=== PATIENT | female | born 1955 | race Two or more races ===

== ENCOUNTER 2020-06-01 14:00 | Emergency (ER) | payer MEDICAID, SELFPAY ==
[2020-06-01 14:39] VITALS: BP 132/105; BP 143/66; PULSE 58; PULSE 66; RESP 16; TEMP 36.8; O2SAT 100; O2SAT 95; BMI 30.9
--- NOTE | 2020-06-01 14:49 | ECG_ITS ---
Test Reason : hyperglycemia Blood Pressure : / mmHG Vent. Rate : 051 BPM Atrial Rate : 051 BPM P-R Int : 166 ms QRS Dur : 086 ms QT Int : 468 ms P-R-T Axes : 051 -08 005 degrees QTc Int : 431 ms Sinus bradycardia Moderate voltage criteria for LVH, may be normal variant Borderline ECG When compared with ECG of 13-DEC-2019 07:32, Vent. rate has decreased BY [address] no longer depressed in Anterior leads T wave amplitude has decreased in Anterior leads Referred By: Jessika Ac Electronically Signed By:CRISTIAN REMY MD
--- NOTE | 2020-06-01 14:51 | ED_ITS ---
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 Reports compliance with insulin/home medications. Unknown diabetes medication, per PCT is insulin. Patient also reports acute on chronic bilateral knee arthritic pain, denies trauma or falls. Denies symptoms including polyuria, polydipsia, abdominal pain, nausea/vomiting/diarrhea, fever, chills, cough Onset (ago): day(s) Related Data Allergies Allergy/AdvReac Type Severity Reaction Status Date / Time No Known Allergies Allergy Mild NOT Unverified 02/05/20 15:49 APPLICABLE Review of Systems Review of Systems: Constitutional: No Weight loss, No Fever, No Chills, No Fatigue, No Malaise Cardiovascular: No Chest Pain, No SOB, No Dyspnea on Exertion, No Orthopnea, No Edema Respiratory: No Cough, No Sputum, No Wheezing Gastrointestinal: No Nausea, No Vomiting, No Diarrhea, No Constipation, No Abdominal pain Genitourinary: No irregular bleeding, No Dysuria, No Urinary Frequency, No Hematuria,No Urgency, No Urinary Flow Changes, No Hesitancy Musculoskeletal: +b/l Knee pain, No Myalgias, No Joint Swelling Skin: No Skin Lesions, No rash Neuro: No Weakness, No Numbness, No Headache Endocrine: No Polyuria, No Polydipsia Yes all other systems are reviewed and are negative FORMERLY [facility], [facility]–1983 Past Medical History Attestation statement: The following information was validated with the patient. Social History Social History Smoking Status: Current every day smoker Advance Directives: No Advance Directives Information Provided: Yes Physical Exam Vital Signs: Vital Signs: Last Vital Signs Temp 98.3 F 06/01/20 14:39 Pulse 58 06/01/20 14:39 Resp 16 06/01/20 14:39 BP 143/66 H 06/01/20 14:39 Pulse Ox 95 06/01/20 14:39 Body Mass Index 30.9 Const: General: cooperative and healthy appearing Nutritional Appearance: overweight Limitations: no limitations HENMT: Head: Yes normal to inspection Ears: hearing grossly normal bilaterally General nose exam: Normal external nose present Face and sinus: Yes normal facial exam Eyes: General: appearance normal, both eyes and all related structures EOM: EOMs intact bilaterally Neck: Neck: Yes normal visual inspection Resp: Effort & Inspection: normal respiratory effort Auscultation: clear to auscultation bilaterally, no crackles, no rales, no rhonchi and no wheezes Cardio: Rate: regular rate Heart sounds: S1 normal heart sound present and S2 normal heart sound present GI: Inspection: Yes normal to inspection Palpation (GI): Soft to palpation, nontender, no guarding and not rigid Skin: Rashes: no rashes Wounds: no wounds Extrem: Other: no LE edema General: Yes normal to inspection Course Course Course Narrative: * POC greater than 600 * 1800--labs still pending. ED care transferred to [facility] Regan pending labs, correction of glucose/re-evaluation and dispo per results Medical Decision Making MDM Narrative Medical decision making narrative: 65-year-old female with a past medical history COPD, arthritis, diabetes, bipolar, gastroenteritis, HTN, former IVDA abuser on Suboxone, BIBA for elevated FS at home x 1-2 days per patient's PCT. On exam VSS, NAD/well appearing, abdomen soft/nontender. Concern for DKA vs HHS vs metabolic abnormalities. Rule out infectious etiology. Plan: EKG, labs, UA, IVF, reassess Lab Data Result diagrams: 06/01/20 17:12 06/01/20 18:04 Labs: Lab Results 06/01/20 06/01/20 06/01/20 Range/Units 15:13 15:15 16:59 WBC (4.8-10.8) X10*3/uL RBC (4.20-5.50) X10*6/uL Hgb (12.0-16.0) g/dl Hct (37-47) % MCV (80-98) fL MCH (27.0-33.0) pg MCHC (31.0-35.0) g/dl RDW (11.0-16.0) % Plt Count (160-400) X10*3/uL MPV (9.4-12.3) fL Immature Gran % (Auto) (0.0-0.4) % Neut % (Auto) (45-73) % Lymph % (Auto) (20-40) % [place] % (Auto) (2-11) % Eos % (Auto) (0-4) % Baso % (Auto) (0-2) % Lymph # (Auto) (1.2-4.9) X10*3/uL [place] # (Auto) (0.1-1.2) X10*3/uL Eos # (Auto) (0.0-0.4) X10*3/uL Baso # (Auto) (0.0-0.2) X10*3/uL Abs Immat Gran (auto) (0.00-0.03) X10*3/uL Absolute Neuts (auto) (2.0-8.3) X10*3/uL Absolute Nucleated RBC (0.0-0.012) X10*3/uL Nucleated RBC % (auto) (0.0-0.2) /100WBC Hold Blue Top VBG pH (7.32-7.43) VBG pCO2 mmhg VBG pO2 mmhg VBG HCO3 mmol/L VBG O2 Saturation % VBG Base Excess mmol/L Sodium Potassium Chloride Carbon Dioxide Anion Gap BUN Creatinine Estim Creat Clear Calc Estimated GFR POC Glucose > 600 H* > 600 H* (60-115) mg/dL Random Glucose Calcium Magnesium Total Bilirubin Direct Bilirubin AST ALT Alkaline Phosphatase Total Protein Albumin Lipase Urine Color YELLOW Urine Appearance CLEAR Urine pH 6.5 (5.0-8.0) Ur Specific [place] 1.015 (1.005-1.025) Urine Protein 2+ H (NEG-TRACE) MG/DL Urine Glucose (UA) >=1000 H (NEG) MG/DL Urine Ketones NEG (NEG) MG/DL Urine Blood TRACE (NEG) Urine Nitrite NEG (NEG) Ur Leukocyte Esterase NEG (NEG) Urine RBC 1-4 (0) /HPF Urine WBC 0 (0-4) /HPF Ur Squamous Epith Cells TRACE /LPF Urine Bacteria NONE /LPF Acetone, Qual 06/01/20 06/01/20 06/01/20 Range/Units 17:12 17:12 17:12 WBC 9.9 (4.8-10.8) X10*3/uL RBC 4.79 (4.20-5.50) X10*6/uL Hgb 13.9 (12.0-16.0) g/dl Hct 41.8 (37-47) % MCV 87.3 (80-98) fL MCH 29.0 (27.0-33.0) pg MCHC 33.3 (31.0-35.0) g/dl RDW 13.3 (11.0-16.0) % Plt Count 304 (160-400) X10*3/uL MPV 10.9 (9.4-12.3) fL Immature Gran % (Auto) 0.3 (0.0-0.4) % Neut % (Auto) 70.5 (45-73) % Lymph % (Auto) 21.2 (20-40) % [place] % (Auto) 5.2 (2-11) % Eos % (Auto) 2.5 (0-4) % Baso % (Auto) 0.3 (0-2) % Lymph # (Auto) 2.1 (1.2-4.9) X10*3/uL [place] # (Auto) 0.5 (0.1-1.2) X10*3/uL Eos # (Auto) 0.3 (0.0-0.4) X10*3/uL Baso # (Auto) 0.0 (0.0-0.2) X10*3/uL Abs Immat Gran (auto) 0.03 (0.00-0.03) X10*3/uL Absolute Neuts (auto) 7.0 (2.0-8.3) X10*3/uL Absolute Nucleated RBC 0.000 (0.0-0.012) X10*3/uL Nucleated RBC % (auto) 0.0 (0.0-0.2) /100WBC Hold Blue Top Cancelled VBG pH (7.32-7.43) VBG pCO2 mmhg VBG pO2 mmhg VBG HCO3 mmol/L VBG O2 Saturation % VBG Base Excess mmol/L Sodium Cancelled Potassium Cancelled Chloride Cancelled Carbon Dioxide Cancelled Anion Gap Cancelled BUN Cancelled Creatinine Cancelled Estim Creat Clear Calc Cancelled Estimated GFR Cancelled POC Glucose (60-115) mg/dL Random Glucose Cancelled Calcium Cancelled Magnesium Cancelled Total Bilirubin Cancelled Direct Bilirubin Cancelled AST Cancelled ALT Cancelled Alkaline Phosphatase Cancelled Total Protein Cancelled Albumin Cancelled Lipase Cancelled Urine Color Urine Appearance Urine pH (5.0-8.0) Ur Specific [place] (1.005-1.025) Urine Protein (NEG-TRACE) MG/DL Urine Glucose (UA) (NEG) MG/DL Urine Ketones (NEG) MG/DL Urine Blood (NEG) Urine Nitrite (NEG) Ur Leukocyte Esterase (NEG) Urine RBC (0) /HPF Urine WBC (0-4) /HPF Ur Squamous Epith Cells /LPF Urine Bacteria /LPF Acetone, Qual Cancelled 06/01/20 06/01/20 Range/Units 17:13 18:03 WBC (4.8-10.8) X10*3/uL RBC (4.20-5.50) X10*6/uL Hgb (12.0-16.0) g/dl Hct (37-47) % MCV (80-98) fL MCH (27.0-33.0) pg MCHC (31.0-35.0) g/dl RDW (11.0-16.0) % Plt Count (160-400) X10*3/uL MPV (9.4-12.3) fL Immature Gran % (Auto) (0.0-0.4) % Neut % (Auto) (45-73) % Lymph % (Auto) (20-40) % [place] % (Auto) (2-11) % Eos % (Auto) (0-4) % Baso % (Auto) (0-2) % Lymph # (Auto) (1.2-4.9) X10*3/uL [place] # (Auto) (0.1-1.2) X10*3/uL Eos # (Auto) (0.0-0.4) X10*3/uL Baso # (Auto) (0.0-0.2) X10*3/uL Abs Immat Gran (auto) (0.00-0.03) X10*3/uL Absolute Neuts (auto) (2.0-8.3) X10*3/uL Absolute Nucleated RBC (0.0-0.012) X10*3/uL Nucleated RBC % (auto) (0.0-0.2) /100WBC Hold Blue Top SEE NOTE VBG pH 7.34 (7.32-7.43) VBG pCO2 62 mmhg VBG pO2 31 mmhg VBG HCO3 33 mmol/L VBG O2 Saturation 57.9 % VBG Base Excess 4.7 mmol/L Sodium Potassium Chloride Carbon Dioxide Anion Gap BUN Creatinine Estim Creat Clear Calc Estimated GFR POC Glucose (60-115) mg/dL Random Glucose Calcium Magnesium Total Bilirubin Direct Bilirubin AST ALT Alkaline Phosphatase Total Protein Albumin Lipase Urine Color Urine Appearance Urine pH (5.0-8.0) Ur Specific [place] (1.005-1.025) Urine Protein (NEG-TRACE) MG/DL Urine Glucose (UA) (NEG) MG/DL Urine Ketones (NEG) MG/DL Urine Blood (NEG) Urine Nitrite (NEG) Ur Leukocyte Esterase (NEG) Urine RBC (0) /HPF Urine WBC (0-4) /HPF Ur Squamous Epith Cells /LPF Urine Bacteria /LPF Acetone, Qual Discharge Plan Discharge Clinical Impression: Hyperglycemia
[2020-06-01] MEDS: 0.9 % Sodium Chloride 1,000 ML 999 ML IVCONT ×2 (15:16→18:26)
--- NOTE | 2020-06-01 15:16 | PC.NURSE ---
poc read hi. iv fluids started. made aware
[2020-06-01 15:22] LABS: Glucose, Whole Blood > 600 mg/dL (60-115)
[2020-06-01 15:22] LABS: Glucose, Whole Blood > 600 mg/dL (60-115)
[2020-06-01 17:25] LABS: MANUAL DIFF FLAG NO
[2020-06-01 17:32] LABS: Basophils Percent Auto 0.3 % (0-2); Eosinophils Absolute Auto 0.3 X10*3/uL (0.0-0.4); Eosinophils Percent Auto 2.5 % (0-4); Hematocrit 41.8 % (37-47); Hemoglobin 13.9 g/dl (12.0-16.0); Imm Gran Abs Auto 0.03 X10*3/uL (0.00-0.03); Imm Gran Pct Auto 0.3 % (0.0-0.4); Lymphocytes Absolute Auto 2.1 X10*3/uL (1.2-4.9); Lymphocytes Percent Auto 21.2 % (20-40); Mean Corpuscular HGB Conc 33.3 g/dl (31.0-35.0); Mean Corpuscular Volume 87.3 fL (80-98); Mean Platelet Volume 10.9 fL (9.4-12.3); Monocytes Absolute Auto 0.5 X10*3/uL (0.1-1.2); Monocytes Percent Auto 5.2 % (2-11); Neutrophils Percent Auto 70.5 % (45-73); Platelet Count 304 X10*3/uL (160-400); Red Blood Count 4.79 X10*6/uL (4.20-5.50); Red Cell Distribution Width 13.3 % (11.0-16.0); White Blood Count 9.9 X10*3/uL (4.8-10.8)
[2020-06-01 17:33] LABS: Glucose Urine UA >=1000 MG/DL (NEG); Leukocyte Esterase Urine NEG (NEG); Nitrite Urine NEG (NEG); PH 6.5 (5.0-8.0); Specific Gravity - Urine 1.015 (1.005-1.025); Urine Blood TRACE (NEG); Urine Ketones NEG (NEG); Urine Protein 2+ MG/DL (NEG-TRACE)
[2020-06-01 17:35] LABS: Appearance Urine CLEAR; Color Urine YELLOW
--- NOTE | 2020-06-01 17:45 | PC.NURSE ---
patient taking own suboxone. Jessika provider aware.
[2020-06-01 17:47] LABS: WBC Urine 0 /HPF (0-4)
[2020-06-01 17:48] LABS: Squamous Epithelial Cell Urine TRACE /LPF
[2020-06-01 17:49] LABS: Base Excess VBG 4.7 mmol/L; HCO3 VBG 33 mmol/L; PCO2 VBG 62 mmhg; PO2 VBG 31 mmhg; pH VBG 7.34 (7.32-7.43)
[2020-06-01 17:50] LABS: Oxygen Saturation VBG 57.9 %
[2020-06-01 18:30] VITALS: BP 190/78; PULSE 59; RESP 16; O2SAT 98
[2020-06-01 18:30] LABS: Acetone, serum QL Negative (Negative)
[2020-06-01 18:44] LABS: Alanine Aminotransferase 17 U/L (0-31); Albumin Level 3.1 g/dL (3.5-5.0); Alkaline Phosphatase 187 U/L (39-117); Anion Gap 14 (12-20); Aspartate Amino Transferase 15 U/L (5-31); Bilirubin Direct < 0.2 mg/dL (0.0-0.5); Bilirubin Total 0.2 mg/dL (0.0-1.0); Blood Urea Nitrogen 18 mg/dL (9-16); Calcium 8.1 mg/dL (8.4-10.2); Carbon Dioxide 28 mmol/L (22-29); Chloride 95 mmol/L (96-108); Creatinine Clr Calc Pharmacy 37.7; Estimated Glomerular Filt Rate 38; Glucose Random 585 mg/dL (60-115); Lipase 41 U/L (8-78); Potassium 4.4 mmol/l (3.3-5.1); Sodium 133 mmol/L (135-145)
[2020-06-01 18:47] LABS: Glucose, Whole Blood 383 mg/dL (60-115)
== END 2020-06-01 21:27 | disposition home or self-care (01) ==
PROVIDERS: Physician Assistant; Emergency Provider Emergency Medicine Emergency Medical Services; PCP Internal Medicine
DX: E11.65 Type 2 diabetes mellitus with hyperglycemia (principal); F11.10 Opioid abuse, uncomplicated; J44.9 Chronic obstructive pulmonary disease, unspecified; I10 Essential (primary) hypertension; Z79.899 Other long term (current) drug therapy; Z79.4 Long term (current) use of insulin; F17.200 Nicotine dependence, unspecified, uncomplicated; Z71.6 Tobacco abuse counseling
CPT/HCPCS: 36415; 80048; 80076; 81001; 82009; 82803; 82947; 83690; 83735; 85025; 93005; 96360; 96361; 99284

== ENCOUNTER 2020-10-21 17:56 | Inpatient (IN) | payer MEDICAID, SELFPAY ==
--- NOTE | ~2020-10-21 | CT_ITS ---
PROCEDURE: CT-GUIDED BIOPSY, RIGHT KIDNEY CLINICAL INFORMATION: Renal failure. COMPARISON: None TECHNIQUE: Following explaining CT-guided renal biopsy procedure, benefits and risk via ship keeper, a written consent was obtained. Patient was placed prone and preliminary CT imaging was obtained through the area of kidneys. A right-sided biopsy was selected and optimal site was selected along the right posterior lateral skin. The marked skin area was cleaned and draped in usual sterile manner. 1% lidocaine was injected at puncture site. A 20-gauge guide needle was inserted from the skin incision to the lower pole of right kidney under fluoroscopy, coaxially the biopsy gun was administered and a 3-pass core biopsy was performed. Postprocedure repeat CT imaging was obtained. Conscious sedation was administered and patient monitored for 22 minutes by IR radiologist and nursing. This CT examination was performed using dose optimization techniques as appropriate, variously including the following: *Automated exposure control *Adjustment of mA and/or kV according to patient size (this includes techniques or standardized protocols for targeted exams where dose is matched to indication/reason for exam; i.e. extremities or head) *Use of iterative reconstruction technique DLP: 430 mGy-cm FINDINGS: On preliminary CT imaging through the abdomen and posterior kidneys revealed both kidneys to be symmetrical in size, density and contour. No radiopaque calculi seen. There is no hydronephrosis. Successful CT fluoroscopy-guided lower pole right renal core biopsy performed x 3. Postprocedure repeat CT imaging revealed no perinephric hematoma or soft tissue mass. CT/CT biopsy renal LT IMPRESSION: Successful CT fluoroscopy-guided right renal lower pole core biopsy performed without immediate complications.
--- NOTE | ~2020-10-21 | US_ITS ---
EXAMINATION: US RENAL DOPPLER CLINICAL INFORMATION: Hypertension. COMPARISON: Previous CT scans of the abdomen and pelvis, most recent March 2016, CTA of the abdomen and pelvis May 2011 and previous renal ultrasounds, most recent September 2015 TECHNIQUE: Doppler color and edmondson-scale evaluation of the kidneys, renal arteries and renal veins. Exam is significantly limited. FINDINGS: Right kidney: The right kidney is difficult to visualize. The right kidney measures 10.8 x 4.5 x 6 cm in sagittal, AP and transverse dimension. Renal cortical echotexture appears increased and may be thinned. No renal stone, mass or hydronephrosis is seen. Left kidney: The left kidney is difficult to visualize. The left kidney measures 11.2 x 3.8 x 4 cm in sagittal, AP and transverse dimension. Renal cortical echotexture appears increased and may be thinned. There is a 4.8 x 4.5 x 4.8 cm cyst in the upper pole. No renal stone, mass or hydronephrosis is seen. The visualized abdominal aorta is normal in caliber and demonstrates normal peak systolic velocity of 75 cm/s. The right renal artery is difficult to visualize. The right renal artery aneurysm appreciated by CTA is not visualized by ultrasound. Right renal artery peak systolic velocities measure 114 cm/s, 43 cm/s and 51 cm/s proximally, in the midportion and distally. Right renal artery to aorta ratio measures 1.4. This does not suggest renal artery stenosis. Resistive indices in the right kidney could not be obtained. The right renal vein is patent. Two left renal arteries are seen on CTA. Only 1 renal artery is seen by ultrasound and is difficult to visualize. The left proximal and mid renal artery is not visualized. The left distal renal artery peak systolic velocity measures 43 cm/s. Left renal artery to aorta ratio is 0.5. Resistive indices in the left kidney could not be obtained. The left renal vein is patent. US/US renal doppler IMPRESSION: Very limited exam. There is bilateral increased renal cortical echogenicity and question renal cortical thinning. 4.5 x 4.8 cm left renal cyst. Markedly limited renal Doppler exam, nondiagnostic. 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 Additional imaging for workup of possible renal artery stenosis should be considered.
--- NOTE | ~2020-10-21 | XR_ITS ---
EXAMINATION: XR CHEST CLINICAL INFORMATION: Shortness of breath COMPARISON: 01/11/2018 TECHNIQUE: Frontal view of the chest was obtained. FINDINGS: Compared to the prior study there's been significant improvement with resolution of what had probably been CHF versus bronchopneumonia. The heart size is normal. At this time there is no evidence of CHF. No infiltrates or pleural effusions or lung masses are seen. XR/XR chest 1V IMPRESSION: No acute intrathoracic disease
[2020-10-21 18:06] VITALS: BP 180/80; PULSE 76; O2SAT 100
[2020-10-21 18:59] VITALS: BP 156/68; PULSE 69; RESP 18; TEMP 36.8; O2SAT 97; BMI 41.5
[2020-10-21 20:51] LABS: MANUAL DIFF FLAG NO
[2020-10-21 20:52] LABS: Basophils Percent Auto 0.3 % (0-2); Eosinophils Absolute Auto 0.5 X10*3/uL (0.0-0.4); Eosinophils Percent Auto 4.1 % (0-4); Hematocrit 36.7 % (37-47); Hemoglobin 11.8 g/dl (12.0-16.0); Imm Gran Abs Auto 0.04 X10*3/uL (0.00-0.03); Imm Gran Pct Auto 0.4 % (0.0-0.4); Lymphocytes Percent Auto 18.1 % (20-40); Mean Corpuscular HGB Conc 32.2 g/dl (31.0-35.0); Mean Corpuscular Hemoglobin 29.1 pg (27.0-33.0); Mean Corpuscular Volume 90.4 fL (80-98); Mean Platelet Volume 9.7 fL (9.4-12.3); Monocytes Absolute Auto 0.9 X10*3/uL (0.1-1.2); Monocytes Percent Auto 7.6 % (2-11); Neutrophils Absolute Auto 7.7 X10*3/uL (2.0-8.3); Neutrophils Percent Auto 69.5 % (45-73); Platelet Count 282 X10*3/uL (160-400); Red Blood Count 4.06 X10*6/uL (4.20-5.50); Red Cell Distribution Width 14.2 % (11.0-16.0); White Blood Count 11.1 X10*3/uL (4.8-10.8)
[2020-10-21 21:03] LABS: INTERNATIONAL NORM RATIO 0.9 (0.9-1.1); Prothrombin Time 10.5 SEC (10.8-13.0)
[2020-10-21 21:06] LABS: D Dimer 506 NG/ML
[2020-10-21 21:12] LABS: Anion Gap 18 (12-20); Blood Urea Nitrogen 27 mg/dL (9-16); Calcium 8.6 mg/dL (8.4-10.2); Carbon Dioxide 24 mmol/L (22-29); Chloride 104 mmol/L (96-108); Creatinine Clr Calc Pharmacy 23.1; Estimated Glomerular Filt Rate 18; Glucose Random 141 mg/dL (60-115); Potassium 4.4 mmol/L (3.3-5.1); Sodium 142 mmol/L (135-145)
[2020-10-21 21:18] LABS: B Type Natriuretic Peptide 294 pg/mL (<100)
--- NOTE | 2020-10-21 22:08 | ED_ITS ---
HPI - Extremity Injury (Lower) General Chief Complaint: Extremity Injury, Lower Stated Complaint: left leg pain Time Seen by Provider: 10/21/20 22:08 Source: patient Mode of arrival: ambulatory Limitations: no limitations History of Present Illness HPI Narrative: Patient's history of substance abuse heroin and cocaine, congestive heart failure, COPD, diabetes, hypertension, anxiety and depression, asthma comes here with increased swelling of the leg with overall bloatedness. Patient denies any chest pain feels a little short of breath when ambulate. Patient has not taken any drugs for last 3 days and is not taking any diuretics Related Data Allergies Allergy/AdvReac Type Severity Reaction Status Date / Time No Known Allergies Allergy Mild NOT Verified 10/21/20 18:58 APPLICABLE Review of Systems Review of Systems: Constitutional : No Weight loss, No Fever, No Chills ENT/Mouth : No sore throat, No Rhinorrhea Eyes: No Eye Pain, No Swelling Cardiovascular : No Chest Pain, no palpitations Respiratory : No Cough, No Sputum, no shortness of breath Gastrointestinal : no Nausea, No Vomiting, No Diarrhea, No abdominal Pain, no black stools Genitourinary : No Dysuria, No Urinary Frequency Musculoskeletal : No joint pain, No Myalgias, No Joint Swelling Skin : No Skin Lesions, No rash Neuro : No Weakness, No Numbness, No Dizziness, No Headache Psych : No Anxiety/Panic, No Depression Heme/Lymph: No Bruising, No Lymphadenopathy Endocrine : No Polyuria, No Polydipsia All other systems reviewed and are negative [facility] Past Medical History Medical History (Updated 10/22/20 @ 00:08 by Damien Ariza MD) Diabetes mellitus Hypertension Social History Social History Advance Directives: No Physical Exam Vital Signs: Vital Signs: Last Vital Signs Temp 98.2 F 10/21/20 18:59 Pulse 69 10/21/20 18:59 Resp 18 10/21/20 18:59 BP 156/68 H 10/21/20 18:59 Pulse Ox 97 10/21/20 18:59 Body Mass Index 41.5 Appearance: Alert. Oriented X3. No acute distress. Eyes: PERRLA, No Nystagmus ENT: Pharynx normal. Oral Mucosa moist Neck: Normal inspection. Neck supple. CVS: Normal heart rate and rhythm. Pulses normal. Respiratory: No respiratory distress. Equal air entry bilateral, no wheezing/rales/rhonchi Abdomen: Soft and nontender. Bowel sounds are present, no mass palpable, no CVA tenderness Skin: Skin warm and dry. Normal skin color. Normal skin turgor. Extremities:3+ b/l lower extremity edema. No calf tenderness Neuro: Oriented X 3. No motor deficit. No sensory deficit.No cerebellar signs , cranial nerves II-XII intact MDM - Extremity Injury (Lower) MDM Narrative Medical decision making narrative: Patient has generalized anasarca with worsening of renal functions previous creatinine was 1.2 today is 2.6 noncompli ant to her medications fluid overloaded at this time will give her dad Lasix 40 mg lungs are clear admit patient for [facility] Medical Records Attestation: I reviewed the patient's medical records. Lab Data Attestation: I reviewed the patient's lab results. Result diagrams: 10/21/20 20:46 10/21/20 20:46 Labs: Lab Results 10/21/20 10/21/20 10/21/20 Range/Units 20:46 20:46 20:46 WBC 11.1 H (4.8-10.8) X10*3/uL RBC 4.06 L (4.20-5.50) X10*6/uL Hgb 11.8 L (12.0-16.0) g/dl Hct 36.7 L (37-47) % MCV 90.4 (80-98) fL MCH 29.1 (27.0-33.0) pg MCHC 32.2 (31.0-35.0) g/dl RDW 14.2 (11.0-16.0) % Plt Count 282 (160-400) X10*3/uL MPV 9.7 (9.4-12.3) fL Immature Gran % (Auto) 0.4 (0.0-0.4) % Neut % (Auto) 69.5 (45-73) % Lymph % (Auto) 18.1 L (20-40) % [place] % (Auto) 7.6 (2-11) % Eos % (Auto) 4.1 H (0-4) % Baso % (Auto) 0.3 (0-2) % Lymph # (Auto) 2.0 (1.2-4.9) X10*3/uL [place] # (Auto) 0.9 (0.1-1.2) X10*3/uL Eos # (Auto) 0.5 H (0.0-0.4) X10*3/uL Baso # (Auto) 0.0 (0.0-0.2) X10*3/uL Abs Immat Gran (auto) 0.04 H (0.00-0.03) X10*3/uL Absolute Neuts (auto) 7.7 (2.0-8.3) X10*3/uL Absolute Nucleated RBC 0.000 (0.0-0.012) X10*3/uL Nucleated RBC % (auto) 0.0 (0.0-0.2) /100WBC PT (10.8-13.0) SEC INR (0.9-1.1) D-Dimer 506 NG/ML Sodium 142 (135-145) mmol/L Potassium 4.4 (3.3-5.1) mmol/L Chloride 104 (96-108) mmol/L Carbon Dioxide 24 (22-29) mmol/L Anion Gap 18 (12-20) BUN 27 H (9-16) mg/dL Creatinine 2.66 H (0.5-1.4) mg/dL Estim Creat Clear Calc 23.1 Estimated GFR 18 Random Glucose 141 H D (60-115) mg/dL Calcium 8.6 D (8.4-10.2) mg/dL B-Natriuretic Peptide (<100) pg/mL 10/21/20 10/21/20 Range/Units 20:46 20:46 WBC (4.8-10.8) X10*3/uL RBC (4.20-5.50) X10*6/uL Hgb (12.0-16.0) g/dl Hct (37-47) % MCV (80-98) fL MCH (27.0-33.0) pg MCHC (31.0-35.0) g/dl RDW (11.0-16.0) % Plt Count (160-400) X10*3/uL MPV (9.4-12.3) fL Immature Gran % (Auto) (0.0-0.4) % Neut % (Auto) (45-73) % Lymph % (Auto) (20-40) % [place] % (Auto) (2-11) % Eos % (Auto) (0-4) % Baso % (Auto) (0-2) % Lymph # (Auto) (1.2-4.9) X10*3/uL [place] # (Auto) (0.1-1.2) X10*3/uL Eos # (Auto) (0.0-0.4) X10*3/uL Baso # (Auto) (0.0-0.2) X10*3/uL Abs Immat Gran (auto) (0.00-0.03) X10*3/uL Absolute Neuts (auto) (2.0-8.3) X10*3/uL Absolute Nucleated RBC (0.0-0.012) X10*3/uL Nucleated RBC % (auto) (0.0-0.2) /100WBC PT 10.5 L (10.8-13.0) SEC INR 0.9 (0.9-1.1) D-Dimer NG/ML Sodium (135-145) mmol/L Potassium (3.3-5.1) mmol/L Chloride (96-108) mmol/L Carbon Dioxide (22-29) mmol/L Anion Gap (12-20) BUN (9-16) mg/dL Creatinine (0.5-1.4) mg/dL Estim Creat Clear Calc Estimated GFR Random Glucose (60-115) mg/dL Calcium (8.4-10.2) mg/dL B-Natriuretic Peptide 294 H (<100) pg/mL ECG Data Attestation: I personally reviewed and interpreted this ECG as follows: Interpretation: Normal sinus rhythm heart rate 72 beats per minute LVH no acute ST T wave changes no acute ischemia Discharge Plan Discharge Clinical Impression: Acute renal failure Qualifiers: Acute renal failure type: unspecified Qualified Code(s): N17.9 - Acute kidney failure, unspecified Diastolic congestive heart failure Qualifiers: Heart failure chronicity: acute on chronic Qualified Code(s): I50.33 - Acute on chronic diastolic (congestive) heart failure Patient Disposition: Admitted As Inpatient
--- NOTE | 2020-10-21 22:18 | ECG_ITS ---
Test Reason : KIDNEY PROBLEMS Blood Pressure : / mmHG Vent. Rate : 079 BPM Atrial Rate : 079 BPM P-R Int : 156 ms QRS Dur : 094 ms QT Int : 388 ms P-R-T Axes : 048 -18 038 degrees QTc Int : 444 ms Normal sinus rhythm Possible Left atrial enlargement Left ventricular hypertrophy Abnormal ECG When compared with ECG of 01-JUN-2020 17:32, Vent. rate has increased BY 28 BPM Referred By: Damien Ariza Electronically Signed By:Charan Hankins
[2020-10-21] MEDS: Furosemide 40 MG/4 ML VIAL IVPUSH (23:06)
[2020-10-22] VITALS (17 sets, daily range): BP systolic 167–209; BP diastolic 73–113; PULSE 76–122; RESP 15–20; TEMP 36.2–36.6; O2SAT 89–100; BMI 36.8
[2020-10-22 00:39] LABS: COVID-19 Test Negative (Negative); IDNOW Serial# 9DD0AD1C
--- NOTE | 2020-10-22 01:29 | PC.NURSE ---
Patient has voided 5 times, ambulating with cane to bathroom and back since being medicated with Furosemide 40mg. Pt reports my legs are numb and tingling . to bedside for evaluation.
--- NOTE | 2020-10-22 03:02 | CA_ITS ---
Transthoracic Echocardiogram Limited Patient (Last, First, Middle): Cruz Muller Maria Gender: Female Date of : 1955 Age: 65 Procedure Date: 10/22/2020 Procedure Type: Transthoracic Echocardiogram Limited Location: S3E Height: 154.94 cm Weight: 88. kg BSA: 1.86 m2 Heart Rate: bpm BP: 209 / 96 mmHg Engine Lathe Set Up Operator Tool: Referring MD: Robert Torres MD Symptoms: chf Study Quality: Good ECG Rhythm: Sinus Conclusions: - Normal left ventricular size and systolic function. The visually estimated ejection fraction is between 65-70%. - E/E prime ratio is between 8 and 15 consistent with indeterminate filling pressures. - Normal right ventricular cavity size and systolic function. - Limited study because the patient was noncooperative. Findings Left Ventricle Normal left ventricular size and systolic function. The visually estimated ejection fraction is between 65-70%. There is no evidence of regional wall motion abnormalities. Abnormal diastolic function is noted. Spectral Doppler is indicative of an impaired relaxation filling pattern. E/E prime ratio is between 8 and 15 consistent with indeterminate filling pressures. Right Ventricle Normal right ventricular cavity size and systolic function. Mitral Valve There is severe mitral annular calcification. Great Vessels All visible segments of the aorta are normal in size. Pericardium/Pleural There is no evidence of pericardial effusion. Prior Study Comparison No significant change compared to prior study. Measurements 2D Linear Measurements Ao Root: 2.60 2.1-3.5 cm LVOT Diam: 2.00 3.0+(-)1.3 cm Mitral Valve MV Pk E: 0.71 MV PK A: 1.34 MV Decel Time: 138.00 E/A: 0.50 E'Lateral: 7.72 E'Medial: 5.77 E/E' Med: 12.30 E/E' Lat: 9.20 PHT: 40.00 MVA PHT: 5.50 Decel Mckean: 5.12 LVOT LVOT Diam: 2.00 LVOT Area: 3.14 Diastolic Function MV Pk E: 0.71 MV Pk A: 1.34 E/A: 0.50 E'Medial: 5.77 E/E' Med: 12.30 E' Laterial: 7.72 E/E' Lat: 9.20 Tricuspid Valve TR Pk Diego: 1.56 TR Pk Grad: 10.00 RA Press: 3.00 RVSP: 13.00 Great Vessels Aorta Ao Root-2D: 2.60 2.0-3.7 cm Updated in Other Vendor System with Status of Final Charan Hankins MD electronically signed on 10/22/2020 9:01:45 PM with status of Final
[2020-10-22 04:12] LABS: Troponin-I High Sensitivity 30.9 ng/L (<3.5-17.0)
[2020-10-22] MEDS: Heparin Sodium,Porcine 5,000 UNIT/ML VIAL 5000 UNIT SUBCUT ×2 (05:05→17:25)
--- NOTE | 2020-10-22 05:30 | PM.IMHP ---
History of Present Illness Date of Service: 10/22/20 Chief Complaint: leg swelling This is a 65-year-old female with past medical history of IV drug use, diabetes, hypertension leg swelling as well as elevated blood pressure. Patient reports that she noticed the leg swelling for the past 3 days, she has been having no dyspnea, orthopnea or PND, she is also experiencing elevated blood pressure in the 200s, she is constipated, denies any abdominal pain nausea or vomiting, no urinary symptoms, no fever but has chills, no headache or change in vision, with with chest pain or palpitations. Other patient denies dyspnea, she has been noted to be dyspneic on ambulation from bed to commode and bathroom On arrival to the ED patient hemodynamically stable with a blood pressure of 156/68, but worsened to , denies any headache or chest pain On arrival to the ED hemodynamically stable with a WBC count 11.1, hemoglobin of 11.8, sodium of 142, potassium 4.4, BUN of 27, creatinine of 2.66 with a baseline around 1.4, sodium of 141, BNP of 294, and high sensitivity troponin of 30.9 with no chest pain EKG shows normal sinus rhythm Chest x-ray shows no acute intrathoracic disease Review of Systems Review of Systems: Yes all other systems are reviewed and are negative [facility] Medical History Diabetes mellitus Hypertension Social History Household Members: None Housing: Apartment Do you presently have visiting nurse or other home services: Yes Patient Tobacco Use Status: Current everyday Tobacco user Tobacco use type: Cigarette Cigarette Packs Per Day: 1 Cigarettes Per Day: 20.0 Smoked in Last 30 Days: Yes Patient Interested in Nicotine Replacement: Yes Patient Given Instructions on How to Stop Smoking: No Second Hand Smoke Exposure: No Use of substances other than those prescribed or required for medical reasons: Yes Substance Use Type: Heroin Substance Use Frequency: Occasionally Last Used Substance: Days (ago) Currently Displaying Signs/Symptoms of Drug Intoxication Withdrawal: No Any prior treatment program specific to substance use: Yes Have you been hit, kicked, punched, or otherwise hurt by someone within the past year? If so, by whom?: No Do you feel safe in your current relationship?: No Current Relationship Is there a partner from a previous relationship who is making you feel unsafe now?: No Are you made to feel afraid or neglected: No Advance Directives: No Advance Directives Information Provided: No (declined) Do you have thoughts of harming others: None Do you have a plan to hurt others: No Plan Recently lost weight without trying: No Nutrition Risks: No Nutritional Risk Patient : No : No Poor oral hygiene: No Meds Allergies Allergy/AdvReac Type Severity Reaction Status Date / Time No Known Allergies Allergy Mild NOT Verified 10/21/20 18:58 APPLICABLE Active Medications: Current Medications Generic Name Dose Route Start Last Admin Trade Name Freq PRN Reason Stop Dose Admin Acetaminophen 650 mg 10/22/20 03:02 Acetaminophen 325 Mg Tablet PO Q6H PRN Pain, Mild (Pain Scale 1-3) Docusate Sodium 100 mg 10/22/20 03:02 Docusate Sodium 100 Mg Capsule PO DAILY PRN Constipation Furosemide 40 mg 10/22/20 09:00 Furosemide 40 Mg/4 Ml Vial IVPUSH DAILY PHAN Protocol Heparin Sodium (Porcine) 5,000 unit 10/22/20 04:00 10/22/20 05:05 Heparin Sodium,Porcine 5,000 Unit/Ml Vial SUBCUT 5,000 unit Q12H PHAN Administration Hydralazine HCl 5 mg 10/22/20 04:56 Hydralazine Hcl 20 Mg/Ml Vial IVPUSH Q6H PRN SBP >180 Protocol Ondansetron HCl 4 mg 10/22/20 03:02 Ondansetron Hcl 4 Mg/2 Ml Vial IVPUSH Q8H PRN Nausea and Vomiting Physical Exam Vital Signs and Narrative: Vital Signs: Last Vital Signs Temp 97.1 F 10/22/20 04:00 Pulse 78 10/22/20 04:00 Resp 17 10/22/20 04:00 BP 209/96 H 10/22/20 04:00 Pulse Ox 96 10/22/20 04:00 Body Mass Index 41.5 Const: General: cooperative and no acute distress Orientation/consciousness: patient oriented x3 Eyes: General: appearance normal, both eyes and all related structures Resp: Effort & Inspection: normal respiratory effort and able to speak in complete sentences Cardio: Rate: regular rate Rhythm: regular rhythm GI: Palpation (GI): Soft to palpation Auscultation: normal bowel sounds Skin: General skin exam: no rashes or lesions noted Neuro: General: patient oriented x3 Cognition (Neuro): normal cognition Extrem: Other: 2+ pitting edema bilaterally General: Yes normal to inspection Results Labs CBC and Chem 7: 10/21/20 20:46 10/21/20 20:46 Labs: Laboratory Results - last 24 hr 10/21/20 10/21/20 10/21/20 20:46 20:46 20:46 MCV 90.4 MCH 29.1 MCHC 32.2 RDW 14.2 Plt Count 282 MPV 9.7 Immature Gran % (Auto) 0.4 Neut % (Auto) 69.5 Lymph % (Auto) 18.1 L [place] % (Auto) 7.6 Eos % (Auto) 4.1 H Baso % (Auto) 0.3 Lymph # (Auto) 2.0 [place] # (Auto) 0.9 Eos # (Auto) 0.5 H Baso # (Auto) 0.0 Abs Immat Gran (auto) 0.04 H Absolute Neuts (auto) 7.7 Absolute Nucleated RBC 0.000 Nucleated RBC % (auto) 0.0 PT INR D-Dimer 506 Anion Gap 18 Estim Creat Clear Calc 23.1 Estimated GFR 18 Random Glucose 141 H D Calcium 8.6 D Troponin I High Sens B-Natriuretic Peptide COVID-19 (KRYSTINA) COVID-[employer] Com 10/21/20 10/21/20 10/22/20 20:46 20:46 00:18 MCV MCH MCHC RDW Plt Count MPV Immature Gran % (Auto) Neut % (Auto) Lymph % (Auto) [place] % (Auto) Eos % (Auto) Baso % (Auto) Lymph # (Auto) [place] # (Auto) Eos # (Auto) Baso # (Auto) Abs Immat Gran (auto) Absolute Neuts (auto) Absolute Nucleated RBC Nucleated RBC % (auto) PT 10.5 L INR 0.9 D-Dimer Anion Gap Estim Creat Clear Calc Estimated GFR Random Glucose Calcium Troponin I High Sens B-Natriuretic Peptide 294 H COVID-19 (KRYSTINA) Negative COVID-19 Clin Com See Note 10/22/20 03:34 MCV MCH MCHC RDW Plt Count MPV Immature Gran % (Auto) Neut % (Auto) Lymph % (Auto) [place] % (Auto) Eos % (Auto) Baso % (Auto) Lymph # (Auto) [place] # (Auto) Eos # (Auto) Baso # (Auto) Abs Immat Gran (auto) Absolute Neuts (auto) Absolute Nucleated RBC Nucleated RBC % (auto) PT INR D-Dimer Anion Gap Estim Creat Clear Calc Estimated GFR Random Glucose Calcium Troponin I High Sens 30.9 H* B-Natriuretic Peptide COVID-19 (KRYSTINA) COVID-19 Clin Com Imaging Radiologist's Impressions: Impressions Chest X-Ray 10/21/20 22:18 IMPRESSION: No acute intrathoracic disease Assessment and Plan (1) Acute renal failure: Qualifiers: Acute renal failure type: unspecified Qualified Code(s): N17.9 - Acute kidney failure, unspecified Status: Acute (2) Acute exacerbation of CHF (congestive heart failure): Status: Acute (3) Leukocytosis: Status: Acute (4) Constipation: Status: Acute 65-year-old female who presents to the hospital with lower extremity swelling # acute CHF exacerbation - has lower extremity edema, elevated BNP, and dyspnea - patient not on any diuretics at home - unable to access old records to review any old echocardiograms - at this time will start on Lasix 40 IV daily - consult cardiology - strict I&O, low-sodium diet, daily weight - echocardiogram # VANDANA - most likely secondary to CHF - will treat with Lasix as above - follow BMP # hypertension - elevated - unclear patient takes any medications at home - will start on hydralazine p.r.n. - consult pharmacy for med review/reconciliation so we can resume her home medications # leukocytosis - denies any urinary symptoms, chest x-ray negative, no soft tissue infection - will obtain a urine sample - follow CBC # constipation - reports that she has not moved her bowels in 4 days - will start her on milk of magnesia, MiraLax, Colace # diabetes - diabetic diet - low-dose sliding scale insulin DVT prophylaxis : Heparin subQ
[2020-10-22] MEDS: hydrALAZINE HCl 20 MG/ML VIAL 5 MG IVPUSH (05:31)
[2020-10-22] MEDS: Milk of Magnesia 30 ML ORAL.SUSP 15 ML PO (06:31)
[2020-10-22 07:37] LABS: Glucose, Whole Blood 128 mg/dL (60-115)
[2020-10-22] MEDS: Nitroglycerin 0.1 MG PATCH.TD24 TRANSDERMA (07:59)
[2020-10-22] MEDS: ondansetron HCL 4 MG/2 ML VIAL IVPUSH ×2 (08:00→21:58)
--- NOTE | 2020-10-22 08:23 | HO.PM.IMPN ---
Subjective Subjective Date of Service: 10/22/20 Interval History: Seen in f/u for exacerbation of heart failure, she remains edematous, less sob Review of Systems leg edema sob with activity no fever Physical Exam Vital Signs: Vital Signs: Last Vital Signs Temp 97.1 F 10/22/20 04:00 Pulse 76 10/22/20 07:59 Resp 17 10/22/20 04:00 BP 174/80 H 10/22/20 07:59 Pulse Ox 96 10/22/20 04:00 Body Mass Index 36.8 Const: General: cooperative and no acute distress Orientation/consciousness: patient oriented x3 Eyes: General: appearance normal, both eyes and all related structures Resp: Effort & Inspection: normal respiratory effort and able to speak in complete sentences Cardio: Rate: regular rate Rhythm: regular rhythm GI: Palpation (GI): Soft to palpation Auscultation: normal bowel sounds Skin: General skin exam: no rashes or lesions noted Neuro: General: patient oriented x3 Cognition (Neuro): normal cognition Extrem: Other: 2+ pitting edema bilaterally, and puffy face General: Yes normal to inspection Objective Data Current Medications Generic Name Dose Route Start Last Admin Trade Name Freq PRN Reason Stop Dose Admin Acetaminophen 650 mg 10/22/20 03:02 Acetaminophen 325 Mg Tablet PO Q6H PRN Pain, Mild (Pain Scale 1-3) Docusate Sodium 100 mg 10/22/20 03:02 Docusate Sodium 100 Mg Capsule PO DAILY PRN Constipation Furosemide 40 mg 10/22/20 09:00 Furosemide 40 Mg/4 Ml Vial IVPUSH DAILY [facility] Protocol Heparin Sodium (Porcine) 5,000 unit 10/22/20 04:00 10/22/20 05:05 Heparin Sodium,Porcine 5,000 Unit/Ml Vial SUBCUT 5,000 unit Q12H PHAN Administration Hydralazine HCl 5 mg 10/22/20 04:56 10/22/20 05:31 Hydralazine Hcl 20 Mg/Ml Vial IVPUSH 5 mg Q6H PRN Administration SBP >180 Protocol Insulin Human Lispro 0 unit 10/22/20 07:30 10/22/20 08:03 Insulin Lispro 100 Unit/Ml 3 Ml Vial SUBCUT Not Given QIDACHS [facility] Protocol Nitroglycerin 0.1 mg 10/22/20 09:00 10/22/20 07:59 Nitroglycerin 0.1 Mg Patch.Td24 TRANSDERMA 0.1 mg DAILY PHAN Administration Protocol Ondansetron HCl 4 mg 10/22/20 03:02 10/22/20 08:00 Ondansetron Hcl 4 Mg/2 Ml Vial IVPUSH 4 mg Q8H PRN Administration Nausea and Vomiting Polyethylene Glycol 17 gm 10/22/20 09:00 Polyethylene Glycol 3350 17 Gm Powd.Pack PO DAILY [facility] Labs CBC & Chem 7: 10/21/20 20:46 10/21/20 20:46 Assessment and Plan (1) Acute renal failure: Status: Acute (2) Acute exacerbation of CHF (congestive heart failure): Status: Acute (3) Leukocytosis: Status: Acute (4) Constipation: Status: Acute Assessment and Plan: 65-year-old female who presents to the hospital with lower extremity swelling # acute CHF exacerbation, probably systolic heart failure, she remain edematous with symptoms -continue IV diuretics -get an echo -cardiology conulst -monitor weight, I/O -heart failure education -Monitor electrolytes and renal function # VANDANA d/t cardiorenal syndrome, and should improve with diuretic if not then get nephrology consult, follow BUN Cr, baseline creatinine is 1.3 (CKD2) and now 2.66 # hypertension--uncontrolled -On Norvasc 5, clonidine 0.1 bid, diltiazem 180 daily and hydralazine 25 bid, and Losartan, hold Losartan d/t renal failure -Med rec completed # leukocytosis--mild, no signs of infection, monitor # constipation--bowel regiment # diabetes--restart home Lantus, add SSI #Opioid dependence--Suboxone #Depression--continue Olanzapine, remron and Celexa DVT prophylaxis : Heparin subQ
[2020-10-22] MEDS: Aspirin Enteric Coated 81 MG TABLET.DR PO (09:14)
[2020-10-22] MEDS: Buprenorphine/Naloxone 8/2 mg FILM 1 FILM SUBLINGUAL (09:14)
[2020-10-22] MEDS: hydrALAZINE HCl 25 MG TABLET PO ×3 (09:14→20:26)
[2020-10-22] MEDS: amLODIPine Besylate 5 MG TABLET PO ×2 (09:15→20:25)
[2020-10-22] MEDS: Escitalopram Oxalate 5 MG TABLET PO (09:15)
[2020-10-22] MEDS: dilTIAZem HCL CD 180 MG CAP.ER.24H PO (09:16)
[2020-10-22] MEDS: Furosemide 40 MG/4 ML VIAL IVPUSH (09:16)
[2020-10-22] MEDS: cloNIDine HCL 0.1 MG TABLET PO ×3 (09:16→20:26)
[2020-10-22] MEDS: Insulin Glargine,Hum.rec.anlog 100 UNIT/ML 10 ML VIAL 24 UNIT SUBCUT (09:28)
--- NOTE | 2020-10-22 09:34 | PM.CNCAR ---
History of Present Illness History of Present Illness Date of Service: 10/22/20 Requesting physician: Socrates Sykes Chief complaint: CHF Narrative: 65-year-old female with elevated BP and LE edema. She is also complaining of orthopnea. She is saying her blood pressure and blood sugar was high at home. She is saying she has been taking medications. No chest pain otherwise. Denies any significant dyspnea. Does complain of orthopnea. She has known sleep apnea. She is reporting that she has been compliant with CPAP mask. With these symptoms she was admitted and thought to have congestive heart failure. She is on IV diuretics at this point. Blood pressure continues to be elevated. [facility] Past Medical History Medical History Diabetes mellitus Hypertension Social History Social History Household Members: None Housing: Apartment Do you presently have visiting nurse or other home services: Yes Patient Tobacco Use Status: Current everyday Tobacco user Tobacco use type: Cigarette Cigarette Packs Per Day: 1 Cigarettes Per Day: 20.0 Smoked in Last 30 Days: Yes Patient Interested in Nicotine Replacement: Yes Patient Given Instructions on How to Stop Smoking: No Second Hand Smoke Exposure: No Use of substances other than those prescribed or required for medical reasons: Yes Substance Use Type: Heroin Substance Use Frequency: Occasionally Last Used Substance: Days (ago) Currently Displaying Signs/Symptoms of Drug Intoxication Withdrawal: No Any prior treatment program specific to substance use: Yes Have you been hit, kicked, punched, or otherwise hurt by someone within the past year? If so, by whom?: No Do you feel safe in your current relationship?: No Current Relationship Is there a partner from a previous relationship who is making you feel unsafe now?: No Are you made to feel afraid or neglected: No Advance Directives: No Advance Directives Information Provided: No (declined) Do you have thoughts of harming others: None Do you have a plan to hurt others: No Plan Recently lost weight without trying: No Nutrition Risks: No Nutritional Risk Patient : No : No Poor oral hygiene: No service: No Current occupational status: unemployed Meds Allergies Allergy/AdvReac Type Severity Reaction Status Date / Time No Known Allergies Allergy Mild NOT Verified 10/21/20 18:58 APPLICABLE Active Medications: Current Medications Generic Name Dose Route Start Last Admin Trade Name [place]oyo PRN Reason Stop Dose Admin Acetaminophen 650 mg 10/22/20 03:02 Acetaminophen 325 Mg Tablet PO Q6H PRN Pain, Mild (Pain Scale 1-3) Albuterol Sulfate 2.5 mg 10/22/20 08:33 Albuterol Sulfate (0.083%) 2.5 Mg/3 Ml Vial.Neb INHALE TID PRN Shortness Of Breath Amlodipine Besylate 5 mg 10/22/20 08:45 10/22/20 09:15 Amlodipine Besylate 5 Mg Tablet PO 5 mg BEDTIME PHAN Administration Protocol Aspirin 81 mg 10/22/20 09:00 10/22/20 09:14 Aspirin Enteric Coated 81 Mg Tablet. PO 81 mg DAILY HPAN Administration Buprenorphine/Naloxone 1 film 10/22/20 09:00 10/22/20 09:14 Buprenorphine/Naloxone 8/2 Mg Film SUBLINGUAL 1 film BID PHAN Administration Clonidine HCl 0.1 mg 10/22/20 09:00 10/22/20 09:16 Clonidine Hcl 0.1 Mg Tablet PO 0.1 mg BID PHAN Administration Protocol Diltiazem HCl 180 mg 10/22/20 09:00 10/22/20 09:16 Diltiazem Hcl Cd 180 Mg Cap.Er.24h PO 180 mg DAILY PHAN Administration Protocol Docusate Sodium 100 mg 10/22/20 03:02 Docusate Sodium 100 Mg Capsule PO DAILY PRN Constipation Docusate Sodium 100 mg 10/22/20 08:33 Docusate Sodium 100 Mg Capsule PO BEDTIME PRN constipation Escitalopram Oxalate 5 mg 10/22/20 09:00 10/22/20 09:15 Escitalopram Oxalate 5 Mg Tablet PO 5 mg DAILY PHAN Administration Furosemide 40 mg 10/22/20 09:00 10/22/20 09:16 Furosemide 40 Mg/4 Ml Vial IVPUSH 40 mg DAILY PHAN Administration Protocol Heparin Sodium (Porcine) 5,000 unit 10/22/20 04:00 10/22/20 05:05 Heparin Sodium,Porcine 5,000 Unit/Ml Vial SUBCUT 5,000 unit Q12H PHAN Administration Hydralazine HCl 5 mg 10/22/20 04:56 10/22/20 05:31 Hydralazine Hcl 20 Mg/Ml Vial IVPUSH 5 mg Q6H PRN Administration SBP >180 Protocol Hydralazine HCl 25 mg 10/22/20 09:00 10/22/20 09:14 Hydralazine Hcl 25 Mg Tablet PO 25 mg BID [facility] Administration Protocol Insulin Glargine 24 unit 10/22/20 09:00 10/22/20 09:28 Insulin Glargine,Hum.Rec.Anlog 100 Unit/Ml 10 Ml Vial SUBCUT 24 unit DAILY PHAN Administration Insulin Human Lispro 0 unit 10/22/20 07:30 10/22/20 08:03 Insulin Lispro 100 Unit/Ml 3 Ml Vial SUBCUT Not Given QIDACHS [facility] Protocol Mirtazapine 15 mg 10/22/20 21:00 Mirtazapine 15 Mg Tablet PO BEDTIME [facility] Multivitamins/Vitamin C 1 tab 10/23/20 09:00 Multivitamin Tablet PO DAILY [facility] Nitroglycerin 0.1 mg 10/22/20 09:00 10/22/20 07:59 Nitroglycerin 0.1 Mg Patch.Td24 TRANSDERMA 0.1 mg DAILY [facility] Administration Protocol Olanzapine 7.5 mg 10/22/20 21:00 Olanzapine 7.5 Mg Tablet PO BEDTIME [facility] Ondansetron HCl 4 mg 10/22/20 03:02 10/22/20 08:00 Ondansetron Hcl 4 Mg/2 Ml Vial IVPUSH 4 mg Q8H PRN Administration Nausea and Vomiting Polyethylene Glycol 17 gm 10/22/20 09:00 10/22/20 09:31 Polyethylene Glycol 3350 17 Gm Powd.Pack PO Not Given DAILY [facility] Polyethylene Glycol 17 gm 10/23/20 09:00 Polyethylene Glycol 3350 17 Gm Powd.Pack PO Q2D PRN Constipation Tiotropium [place] 1 puff 10/22/20 09:00 Tiotropium [place] 18 Mcg Cap.W.Dev INHALE RDAILY [facility] Trazodone HCl 100 mg 10/22/20 21:00 Trazodone Hcl 100 Mg Tablet PO BEDTIME MRX1 [facility] Home Medications Medication Instructions Recorded Confirmed Last Taken Type acetaminophen 1 tab PO Q8H PRN 10/22/20 10/22/20 Unknown History albuterol sulfate 1 amp INHALATION TID PRN 10/22/20 10/22/20 Unknown History amlodipine 5 mg PO BEDTIME 10/22/20 10/22/20 Unknown History aspirin 81 mg PO QAM 10/22/20 10/22/20 Unknown History buprenorphine-naloxone [Suboxone] 1 strip SUBLINGUAL BID 10/22/20 10/22/20 Unknown History clonidine HCl 0.1 mg PO BID 10/22/20 10/22/20 Unknown History diclofenac sodium 2 g TOPICAL QID 10/22/20 10/22/20 Unknown History diltiazem HCl 180 mg PO QAM 10/22/20 10/22/20 Unknown History docusate sodium 1 - 2 cap PO BEDTIME PRN 10/22/20 10/22/20 Unknown History escitalopram oxalate 5 mg PO QAM 10/22/20 10/22/20 Unknown History hydralazine 25 mg PO BID 10/22/20 10/22/20 Unknown History insulin glargine [Lantus Solostar 24 unit SUBCUT DAILY 10/22/20 10/22/20 Unknown History U-100 Insulin] insulin lispro [Humalog KwikPen 4 - 12 unit SUBCUT TIDAC 10/22/20 10/22/20 Unknown History Insulin] losartan 100 mg PO QAM 10/22/20 10/22/20 Unknown History mirtazapine 15 mg PO BEDTIME 10/22/20 10/22/20 Unknown History multivitamin [One Daily 1 tab PO QAM 10/22/20 10/22/20 Unknown History Multivitamin] olanzapine 7.5 mg PO BEDTIME 10/22/20 10/22/20 Unknown History polyethylene glycol 3350 1 packet PO NEEDED 10/22/20 10/22/20 Unknown History tiotropium bromide [Spiriva with 1 cap INHALATION DAILY 10/22/20 10/22/20 Unknown History HandiHaler] trazodone 1 - 2 tab PO BEDTIME 10/22/20 10/22/20 Unknown History Physical Exam Vital Signs: Vital Signs: Last Vital Signs Temp 97.8 F 10/22/20 08:00 Pulse 76 10/22/20 09:16 Resp 18 10/22/20 08:00 BP 174/80 H 10/22/20 09:16 Pulse Ox 97 10/22/20 08:00 Body Mass Index 36.8 GENERAL APPEARANCE: in no acute distress, pleasant. NECK: no carotid bruit, + jugular venous distention. SKIN: no suspicious lesions, warm and dry. HEART: no murmurs, regular rate and rhythm. LUNGS: Few crackles at bases ABDOMEN: soft, nontender. EXTREMITIES: 1+ edema. PERIPHERAL PULSES: equal. NEUROLOGIC: No gross deficits, AAO X 3 Results Labs and Meds Result diagrams: 10/21/20 20:46 10/21/20 20:46 Lab results: Laboratory Results - last 24 hr 10/21/20 10/21/20 10/21/20 20:46 20:46 20:46 WBC 11.1 H RBC 4.06 L Hgb 11.8 L Hct 36.7 L MCV 90.4 MCH 29.1 MCHC 32.2 RDW 14.2 Plt Count 282 MPV 9.7 Immature Gran % (Auto) 0.4 Neut % (Auto) 69.5 Lymph % (Auto) 18.1 L [place] % (Auto) 7.6 Eos % (Auto) 4.1 H Baso % (Auto) 0.3 Lymph # (Auto) 2.0 [place] # (Auto) 0.9 Eos # (Auto) 0.5 H Baso # (Auto) 0.0 Abs Immat Gran (auto) 0.04 H Absolute Neuts (auto) 7.7 Absolute Nucleated RBC 0.000 Nucleated RBC % (auto) 0.0 PT INR D-Dimer 506 Sodium 142 Potassium 4.4 Chloride 104 Carbon Dioxide 24 Anion Gap 18 BUN 27 H Creatinine 2.66 H Estim Creat Clear Calc 23.1 Estimated GFR 18 POC Glucose Random Glucose 141 H D Calcium 8.6 D Troponin I High Sens B-Natriuretic Peptide COVID-19 (KRYSTINA) COVID-19 Clin Com 10/21/20 10/21/20 10/22/20 20:46 20:46 00:18 WBC RBC Hgb Hct MCV MCH MCHC RDW Plt Count MPV Immature Gran % (Auto) Neut % (Auto) Lymph % (Auto) [place] % (Auto) Eos % (Auto) Baso % (Auto) Lymph # (Auto) [place] # (Auto) Eos # (Auto) Baso # (Auto) Abs Immat Gran (auto) Absolute Neuts (auto) Absolute Nucleated RBC Nucleated RBC % (auto) PT 10.5 L INR 0.9 D-Dimer Sodium Potassium Chloride Carbon Dioxide Anion Gap BUN Creatinine Estim Creat Clear Calc Estimated GFR POC Glucose Random Glucose Calcium Troponin I High Sens B-Natriuretic Peptide 294 H COVID-19 (KRYSTINA) Negative COVID-19 Clin Com See Note 10/22/20 10/22/20 03:34 07:33 WBC RBC Hgb Hct MCV MCH MCHC RDW Plt Count MPV Immature Gran % (Auto) Neut % (Auto) Lymph % (Auto) [place] % (Auto) Eos % (Auto) Baso % (Auto) Lymph # (Auto) [place] # (Auto) Eos # (Auto) Baso # (Auto) Abs Immat Gran (auto) Absolute Neuts (auto) Absolute Nucleated RBC Nucleated RBC % (auto) PT INR D-Dimer Sodium Potassium Chloride Carbon Dioxide Anion Gap BUN Creatinine Estim Creat Clear Calc Estimated GFR POC Glucose 128 H Random Glucose Calcium Troponin I High Sens 30.9 H* B-Natriuretic Peptide COVID-19 (KRYSTINA) COVID-19 Clin Com Imaging Radiologist's impression: Impressions Chest X-Ray 10/21/20 22:18 IMPRESSION: No acute intrathoracic disease Assessment and Plan (1) Acute exacerbation of CHF (congestive heart failure): Status: Acute (2) Essential hypertension: Status: Acute 65-year-old female here for elevated blood pressure and blood sugars. She is complaining of orthopnea as well as lower extremity edema. Blood pressure control is poor. Clinically she is in heart failure. Neck veins are elevated as well as peripheral edema. Agree with IV diuretics. He blood pressure continues to be elevated then amlodipine should be increased to 10 mg once a day. Likely cause for congestive heart failure is elevated blood pressure. We will follow along the. Thank you for allowing me to participate in the care of your patient. Please feel free to contact me if you have any questions. Procedures Date of Service Date of Service: 10/22/20
--- NOTE | 2020-10-22 10:21 | MHC.CM.PN ---
NURSE TECHNICAL TRAINING COORDINATOR NOTE ELECTRONIC MEDICAL RECORD REVIEWED ALONG WITH CASE DISCUSSED WITH STAFF NURSE , MET WITH PATIENT WITH [employer]AYSIAN [employer]PHANIE[employer]TER SH REPORTED THAT SHE LIVES ALONE, SHE HAS NO VNA /NO DME SERVICES IN THE HOME AT PRESENT. SHE CONTINUE TO SMOKE CIGARETTES 1 PACKAGE LAST TWO DAUYS AND THIS HAS BEEN AN INCREASE OVER THE LAST 6 MONTHS, SHE REPORTED THAT SHE USES HEROIN AND HAS HISTORY OF IV DRUG ABUSE, SHE IS ALSO ON SUBOXONE. SHE REPORTS THAT SHE IS A DIABETIC AND CHECKS HER SUGARS DAILY AND ALSO MONITORS HER BLOOD PRESSURE , WHEN I ASKED ABOUT WHAT HER BLOOD PRESSURE RAN SHE CHANGED THE SUBJECT SHE CONFIRMED THAT SHE IS FOLLOWED BY DR DAMON AT THE [facility] AND HE PRESCRIBES HER MEDICATIONS, SHE ALSO IS ACTIVE WITH A PSYCHIATRIST AND THEARPIST AND THE PRESCRIBE HER PSYCHIATRIC MEDS, (SHE COULD NOT RECALL THE NAME OF THE AGENCY) SHE DESCRIBES HER SELF INDEPENDENT BUT AMBULATES WITH A CANE DISCHARGE PLAN 1. CHECKING ON WHEN SHE LAST SAW DR DAMON OR OTHER PHYSICIAN AT THE [facility] (may need vna if eligible 2 SELF-RESUMPTION OF HER MENTAL HEALTH COUNSELING 3. SELF RESUMPTION_OF HER SUBOXONE PROGRAM 4. PCP- DR DAMON AT THE [facility], (CASE MANAGEMENT OFFICE CHECKING TO SEE IF DR DAMON IS STILL THERE OR WHETHER PATIENT HAS BEEN ASSIGNED ANOTHER [PROVIDER) 5 TRANSPORTATION FAMILY OR FRIENDS 6 INIATED REFERRAL TO THE CARES TEAM ADN INFORMED RECOVER NURSE
[2020-10-22 10:30] LABS: Troponin-I High Sensitivity 25.6 ng/L (<3.5-17.0)
--- NOTE | 2020-10-22 11:00 | MHC.RECOVRN ---
65 year old female presented to [facility] ED on 10/21, ambulatory, due to left leg sleeping x 3 days. ? ?good csm and palpable pedal pulse. moderate swelling per narcotics and vice detective. Upon evaluation, pt was found to have?past medical history of IV drug use, diabetes, hypertension, leg swelling and elevated blood pressure. Pt subsequently admitted for acute renal failure, acute exacerbation of CHF, leukocytosis and constipation.? T/w met with pt, utilizing healthcare interpreter, in 380 after consult placed to CARE Team for OUD. Upon entering pts room, pt is in obvious discomfort, anxious, and experiencing muscle spasms. Pt reports prior to arriving to [facility] yesterday evening, pt used 1 bag of heroin, IN. Pt is currently prescribed Suboxone through [facility], 8 mg BID, and received 8 mg at 0914 today. Pt currently in precipitated withdrawal. Further discussion regarding substance use will be postponed until pt is more comfortable and withdrawal is addressed.? Case discussed with and referred to Heidy De La Fuente APRN.?
[2020-10-22 11:33] LABS: Glucose, Whole Blood 280 mg/dL (60-115)
[2020-10-22] MEDS: Insulin Lispro 100 UNIT/ML 3 ML VIAL SUBCUT (11:48)
[2020-10-22] MEDS: Cyclobenzaprine HCl 10 MG TABLET PO ×2 (11:52→22:05)
[2020-10-22] MEDS: Buprenorphine/Naloxone 2/0.5mg FILM 1 FILM SUBLINGUAL ×2 (12:44→14:39)
--- NOTE | 2020-10-22 13:00 | MHC.RECOVRN ---
T/w checked in with pt after receiving clonidine and Flexeril for withdrawal symptoms. Pt still experiencing muscle spasms but reports they are a little better. Pt appears more calm and is sitting in bed. Will continue to follow.
[2020-10-22] MEDS: Nicotine 21 MG PATCH.TD24 TRANSDERMA (14:40)
--- NOTE | 2020-10-22 15:47 | HO.ADDICTCON ---
History of Present Illness Date of Service: 10/22/2020 Chief Complaint: CHF Reason for Consult: Precipitated withdrawal Requesting physician: Socrates Sykes Discussed with referring provider: Yes Sources of Information: patient interviewed and chart reviewed HPI Narrative: Patient is a 65 year old Japanese speaking female with OUD on MOUD (suboxone) medically admitted with CHF. Consult requested as patient received AM dose of suboxone and almost immediately began experiencing withdrawal sx. Seen by the RS RN and reported using heroin the evening before. Based on this information and clinical picture, evident that patient precipitated withdrawal. When seen by this food writer, patient was extremely restless, kicking her legs, anxious, sweating, irritable. Educated patient regarding precipitated withdrawal and plan of care Past Psychiatric History: not reviewed Medical Evaluation Reviewed: Yes Review of Systems Constitutional: Reports as per HPI Diagnostics Vital Signs (24Hr): Vital Signs - 24 hr 10/21/20 18:59 10/22/20 00:36 10/22/20 04:00 Temperature 98.2 F 97.9 F 97.1 F Pulse Rate 69 77 78 Respiratory Rate 18 18 17 Blood Pressure 156/68 H 190/79 H 209/96 H Pulse Oximetry 97 97 96 10/22/20 05:31 10/22/20 07:59 10/22/20 08:00 Temperature 97.8 F Pulse Rate 77 76 76 Respiratory Rate 18 Blood Pressure 209/96 H 174/80 H 174/80 H Pulse Oximetry 97 10/22/20 09:14 10/22/20 09:15 10/22/20 09:16 Temperature Pulse Rate 76 76 76 Respiratory Rate Blood Pressure 174/80 H 174/80 H 174/80 H Pulse Oximetry 10/22/20 11:49 10/22/20 11:51 10/22/20 14:39 Temperature 97.2 F Pulse Rate 122 H 98 98 Respiratory Rate 20 Blood Pressure 181/93 H 181/93 H 171/85 H Pulse Oximetry 97 Body Mass Index 36.8 Labs Results: 10/21/20 20:46 10/21/20 20:46 Labs: Laboratory Results - last 48 hr 10/21/20 10/21/20 10/21/20 20:46 20:46 20:46 WBC 11.1 H RBC 4.06 L Hgb 11.8 L Hct 36.7 L MCV 90.4 MCH 29.1 MCHC 32.2 RDW 14.2 Plt Count 282 MPV 9.7 Immature Gran % (Auto) 0.4 Neut % (Auto) 69.5 Lymph % (Auto) 18.1 L [place] % (Auto) 7.6 Eos % (Auto) 4.1 H Baso % (Auto) 0.3 Lymph # (Auto) 2.0 [place] # (Auto) 0.9 Eos # (Auto) 0.5 H Baso # (Auto) 0.0 Abs Immat Gran (auto) 0.04 H Absolute Neuts (auto) 7.7 Absolute Nucleated RBC 0.000 Nucleated RBC % (auto) 0.0 PT INR D-Dimer 506 Sodium 142 Potassium 4.4 Chloride 104 Carbon Dioxide 24 Anion Gap 18 BUN 27 H Creatinine 2.66 H Estim Creat Clear Calc 23.1 Estimated GFR 18 POC Glucose Random Glucose 141 H D Calcium 8.6 D Troponin I High Sens B-Natriuretic Peptide COVID-19 (KRYSTINA) COVID-[employer] 10/21/20 10/21/20 10/22/20 20:46 20:46 00:18 WBC RBC Hgb Hct MCV MCH MCHC RDW Plt Count MPV Immature Gran % (Auto) Neut % (Auto) Lymph % (Auto) [place] % (Auto) Eos % (Auto) Baso % (Auto) Lymph # (Auto) [place] # (Auto) Eos # (Auto) Baso # (Auto) Abs Immat Gran (auto) Absolute Neuts (auto) Absolute Nucleated RBC Nucleated RBC % (auto) PT 10.5 L INR 0.9 D-Dimer Sodium Potassium Chloride Carbon Dioxide Anion Gap BUN Creatinine Estim Creat Clear Calc Estimated GFR POC Glucose Random Glucose Calcium Troponin I High Sens B-Natriuretic Peptide 294 H COVID-19 (KRYSTINA) Negative COVID-19 [employer] See Note 10/22/20 10/22/20 10/22/20 03:34 07:33 09:08 WBC RBC Hgb Hct MCV MCH MCHC RDW Plt Count MPV Immature Gran % (Auto) Neut % (Auto) Lymph % (Auto) [place] % (Auto) Eos % (Auto) Baso % (Auto) Lymph # (Auto) [place] # (Auto) Eos # (Auto) Baso # (Auto) Abs Immat Gran (auto) Absolute Neuts (auto) Absolute Nucleated RBC Nucleated RBC % (auto) PT INR D-Dimer Sodium Potassium Chloride Carbon Dioxide Anion Gap BUN Creatinine Estim Creat Clear Calc Estimated GFR POC Glucose 128 H Random Glucose Calcium Troponin I High Sens 30.9 H* 25.6 H* B-Natriuretic Peptide COVID-19 (KRYSTINA) COVID-19 [employer] 10/22/20 11:27 WBC RBC Hgb Hct MCV MCH MCHC RDW Plt Count MPV Immature Gran % (Auto) Neut % (Auto) Lymph % (Auto) [place] % (Auto) Eos % (Auto) Baso % (Auto) Lymph # (Auto) [place] # (Auto) Eos # (Auto) Baso # (Auto) Abs Immat Gran (auto) Absolute Neuts (auto) Absolute Nucleated RBC Nucleated RBC % (auto) PT INR D-Dimer Sodium Potassium Chloride Carbon Dioxide Anion Gap BUN Creatinine Estim Creat Clear Calc Estimated GFR POC Glucose 280 H Random Glucose Calcium Troponin I High Sens B-Natriuretic Peptide COVID-19 (KRYSTINA) COVID-19 [employer] [facility] Imaging Radiology Impressions: ITS Impressions Chest X-Ray 10/21/20 22:18 IMPRESSION: No acute intrathoracic disease Mental Status Exam Mental Status Exam Patient Behavior: Anxious Mood Description: Appropriate Affect Description: Anxious Ability to Follow Directions: Good Speech Pattern: Clear Judgement: Fair Medications Medications Current Medications Generic Name Dose Route Start Last Admin Trade Name Freq PRN Reason Stop Dose Admin Acetaminophen 650 mg 10/22/20 03:02 Acetaminophen 325 Mg Tablet PO Q6H PRN Pain, Mild (Pain Scale 1-3) Albuterol Sulfate 2.5 mg 10/22/20 08:33 Albuterol Sulfate (0.083%) 2.5 Mg/3 Ml Vial.Neb INHALE TID PRN Shortness Of Breath Amlodipine Besylate 5 mg 10/22/20 08:45 10/22/20 09:15 Amlodipine Besylate 5 Mg Tablet PO 5 mg BEDTIME PHAN Administration Protocol Aspirin 81 mg 10/22/20 09:00 10/22/20 09:14 Aspirin Enteric Coated 81 Mg Tablet. PO 81 mg DAILY PHAN Administration Buprenorphine/Naloxone 1 film 10/22/20 09:00 10/22/20 09:14 Buprenorphine/Naloxone 8/2 Mg Film SUBLINGUAL 1 film BID PHAN Administration Clonidine HCl 0.1 mg 10/22/20 09:00 10/22/20 09:16 Clonidine Hcl 0.1 Mg Tablet PO 0.1 mg BID PHAN Administration Protocol Cyclobenzaprine HCl 10 mg 10/22/20 11:30 10/22/20 11:52 Cyclobenzaprine Hcl 10 Mg Tablet PO 10 mg TID PRN Administration Restlessness Diltiazem HCl 180 mg 10/22/20 09:00 10/22/20 09:16 Diltiazem Hcl Cd 180 Mg Cap.Er.24h PO 180 mg DAILY PHAN Administration Protocol Docusate Sodium 100 mg 10/22/20 03:02 Docusate Sodium 100 Mg Capsule PO DAILY PRN Constipation Docusate Sodium 100 mg 10/22/20 08:33 Docusate Sodium 100 Mg Capsule PO BEDTIME PRN constipation Escitalopram Oxalate 5 mg 10/22/20 09:00 10/22/20 09:15 Escitalopram Oxalate 5 Mg Tablet PO 5 mg DAILY [facility] TO [facility] Administration Furosemide 40 mg 10/22/20 09:00 10/22/20 09:16 Furosemide 40 Mg/4 Ml Vial IVPUSH 40 mg DAILY [facility] Administration Protocol Heparin Sodium (Porcine) 5,000 unit 10/22/20 04:00 10/22/20 05:05 Heparin Sodium,Porcine 5,000 Unit/Ml Vial SUBCUT 5,000 unit Q12H [facility] Administration Hydralazine HCl 25 mg 10/22/20 15:00 10/22/20 14:39 Hydralazine Hcl 25 Mg Tablet PO 25 mg TID [facility] Administration Protocol Insulin Glargine 24 unit 10/22/20 09:00 10/22/20 09:28 Insulin Glargine,Hum.Rec.Anlog 100 Unit/Ml 10 Ml Vial SUBCUT 24 unit DAILY [facility] Administration Insulin Human Lispro 0 unit 10/22/20 07:30 10/22/20 11:48 Insulin Lispro 100 Unit/Ml 3 Ml Vial SUBCUT 6 unit QIDACHS [facility] Administration Protocol Mirtazapine 15 mg 10/22/20 21:00 Mirtazapine 15 Mg Tablet PO BEDTIME [facility] Multivitamins/Vitamin C 1 tab 10/23/20 09:00 Multivitamin Tablet PO DAILY [facility] TO [facility] Nicotine 21 mg 10/22/20 14:30 10/22/20 14:40 Nicotine 21 Mg Patch.Td24 TRANSDERMA 21 mg DAILY [facility] Administration Nitroglycerin 0.1 mg 10/22/20 09:00 10/22/20 07:59 Nitroglycerin 0.1 Mg Patch.Td24 TRANSDERMA 0.1 mg DAILY PHAN Administration Protocol Olanzapine 7.5 mg 10/22/20 21:00 Olanzapine 7.5 Mg Tablet PO BEDTIME PHAN Ondansetron HCl 4 mg 10/22/20 03:02 10/22/20 08:00 Ondansetron Hcl 4 Mg/2 Ml Vial IVPUSH 4 mg Q8H PRN Administration Nausea and Vomiting Polyethylene Glycol 17 gm 10/22/20 09:00 10/22/20 09:31 Polyethylene Glycol 3350 17 Gm Powd.Pack PO Not Given DAILY PHAN Polyethylene Glycol 17 gm 10/23/20 09:00 Polyethylene Glycol 3350 17 Gm Powd.Pack PO Q2D PRN Constipation Tiotropium [place] 1 puff 10/22/20 09:00 Tiotropium [place] 18 Mcg Cap.W.Dev INHALE RDAILY PHAN Trazodone HCl 100 mg 10/22/20 21:00 Trazodone Hcl 100 Mg Tablet PO BEDTIME MRX1 PHAN Allergies Allergies Allergy/AdvReac Type Severity Reaction Status Date / Time No Known Allergies Allergy Mild NOT Verified 10/21/20 18:58 APPLICABLE Assessment & Plan Assessment & Plan (1) Opioid withdrawal: Status: Acute Code(s): F11.23 - Opioid dependence with withdrawal Recommendations: flexeril 10mg TID PRN to address restlessness/muscle spasms clonidine 0.1mg (additional one time order) sx of precipitated withdrawal are usually time limited and then suboxone can be reintroduced 2mg given about 3 hours after sx of withdrawal presented. patient tolerated this well and reported feeling calmer. Additional 2mg given about 2 hours later with good effect currently still experiencing restlessness and some chills, but much improved from earlier this morning additional 4mg to be given tonight and 8mg regular home dose on hold until tomorrow AM when she can resume previous outpt order of 8mg BID Greater than 50% of the session was spent on counseling and/or coordination of care PMF Past Medical History Medical History Diabetes mellitus Hypertension Social History Social History Household Members: None Housing: Apartment Do you presently have visiting nurse or other home services: Yes Patient Tobacco Use Status: Current everyday Tobacco user Tobacco use type: Cigarette Cigarette Packs Per Day: 1 Cigarettes Per Day: 20.0 Smoked in Last 30 Days: Yes Patient Interested in Nicotine Replacement: Yes Patient Given Instructions on How to Stop Smoking: No Second Hand Smoke Exposure: No Use of substances other than those prescribed or required for medical reasons: Yes Substance Use Type: Heroin Substance Use Frequency: Occasionally Last Used Substance: Days (ago) Currently Displaying Signs/Symptoms of Drug Intoxication Withdrawal: No Any prior treatment program specific to substance use: Yes Have you been hit, kicked, punched, or otherwise hurt by someone within the past year? If so, by whom?: No Do you feel safe in your current relationship?: No Current Relationship Is there a partner from a previous relationship who is making you feel unsafe now?: No Are you made to feel afraid or neglected: No Advance Directives: No Advance Directives Information Provided: No (declined) Do you have thoughts of harming others: None Do you have a plan to hurt others: No Plan Recently lost weight without trying: No Nutrition Risks: No Nutritional Risk Patient : No : No Poor oral hygiene: No service: No Current occupational status: unemployed
[2020-10-22 16:05] LABS: Glucose, Whole Blood 110 mg/dL (60-115)
[2020-10-22] MEDS: Buprenorphine/Naloxone 4/1 mg FILM 1 FILM SUBLINGUAL (18:10)
[2020-10-22] MEDS: OLANZapine 7.5 MG TABLET PO (20:25)
[2020-10-22] MEDS: Mirtazapine 15 MG TABLET PO (20:25)
[2020-10-22] MEDS: traZODone HCL 100 MG TABLET PO (20:27)
[2020-10-22 20:37] LABS: Glucose, Whole Blood 115 mg/dL (60-115)
[2020-10-22] MEDS: Acetaminophen 325 MG TABLET 650 MG PO (22:05)
[2020-10-23] VITALS (11 sets, daily range): BP systolic 134–187; BP diastolic 62–81; PULSE 75–84; RESP 15–20; TEMP 36.1–36.6; O2SAT 94–98
[2020-10-23] MEDS: Heparin Sodium,Porcine 5,000 UNIT/ML VIAL 5000 UNIT SUBCUT ×2 (04:02→17:49)
[2020-10-23 07:17] LABS: MANUAL DIFF FLAG NO
[2020-10-23 07:27] LABS: Basophils Percent Auto 0.2 % (0-2); Eosinophils Absolute Auto 0.3 X10*3/uL (0.0-0.4); Eosinophils Percent Auto 2.7 % (0-4); Hematocrit 34.8 % (37-47); Hemoglobin 11.4 g/dl (12.0-16.0); Imm Gran Abs Auto 0.03 X10*3/uL (0.00-0.03); Imm Gran Pct Auto 0.3 % (0.0-0.4); Lymphocytes Percent Auto 20.8 % (20-40); Mean Corpuscular HGB Conc 32.8 g/dl (31.0-35.0); Mean Corpuscular Hemoglobin 29.2 pg (27.0-33.0); Mean Corpuscular Volume 89.2 fL (80-98); Mean Platelet Volume 10.1 fL (9.4-12.3); Monocytes Absolute Auto 0.6 X10*3/uL (0.1-1.2); Monocytes Percent Auto 6.7 % (2-11); Neutrophils Absolute Auto 6.7 X10*3/uL (2.0-8.3); Neutrophils Percent Auto 69.3 % (45-73); Platelet Count 282 X10*3/uL (160-400); Red Cell Distribution Width 14.2 % (11.0-16.0); White Blood Count 9.6 X10*3/uL (4.8-10.8)
[2020-10-23 07:57] LABS: Glucose, Whole Blood 110 mg/dL (60-115)
[2020-10-23 08:05] LABS: Blood Urea Nitrogen 26 mg/dL (9-16); Calcium 8.3 mg/dL (8.4-10.2); Creatinine Clr Calc Pharmacy 23.3; Estimated Glomerular Filt Rate 20; Glucose Random 104 mg/dL (60-115)
[2020-10-23] MEDS: Escitalopram Oxalate 5 MG TABLET PO (08:21)
[2020-10-23] MEDS: Furosemide 40 MG/4 ML VIAL IVPUSH (08:21)
[2020-10-23] MEDS: hydrALAZINE HCl 25 MG TABLET PO ×3 (08:21→20:47)
[2020-10-23] MEDS: Multivitamin TABLET 1 TAB PO (08:21)
[2020-10-23] MEDS: dilTIAZem HCL CD 180 MG CAP.ER.24H PO (08:21)
[2020-10-23] MEDS: Nitroglycerin 0.1 MG PATCH.TD24 TRANSDERMA (08:22)
[2020-10-23] MEDS: cloNIDine HCL 0.1 MG TABLET PO ×2 (08:22→20:48)
[2020-10-23] MEDS: Cyclobenzaprine HCl 10 MG TABLET PO (08:22)
[2020-10-23] MEDS: Aspirin Enteric Coated 81 MG TABLET.DR PO (08:22)
[2020-10-23] MEDS: Nicotine 21 MG PATCH.TD24 TRANSDERMA (08:23)
[2020-10-23] MEDS: Insulin Glargine,Hum.rec.anlog 100 UNIT/ML 10 ML VIAL 24 UNIT SUBCUT (08:23)
[2020-10-23] MEDS: polyethylene glycoL 3350 17 GM POWD.PACK PO (08:23)
[2020-10-23 08:51] LABS: Anion Gap 14 (12-20); Carbon Dioxide 30 mmol/L (22-29); Chloride 101 mmol/L (96-108); Potassium 3.2 mmol/L (3.3-5.1); Sodium 142 mmol/L (135-145)
[2020-10-23] MEDS: Buprenorphine/Naloxone 8/2 mg FILM 1 FILM SUBLINGUAL ×2 (10:02→20:47)
--- NOTE | 2020-10-23 10:03 | P.PNIM_ITS ---
Subjective Subjective Date of Service: 10/23/20 Interval History: Seen in f/u for exacerbation of heart failure, swelling is better, less sob, she c/o some back pain Review of Systems leg edema sob with activity no fever back pain Physical Exam Vital Signs: Vital Signs: Last Vital Signs Temp 98 F 10/23/20 07:23 Pulse 81 10/23/20 07:23 Resp 18 10/23/20 07:23 BP 154/62 H 10/23/20 07:23 Pulse Ox 96 10/23/20 07:23 Body Mass Index 36.8 Const: General: cooperative and no acute distress Orientation/conscious ness: patient oriented x3 Eyes: General: appearance normal, both eyes and all related structures Resp: Effort & Inspection: normal respiratory effort and able to speak in complete sentences Cardio: Other: 1+ leg edema Rate: regular rate Rhythm: regular rhythm GI: Palpation (GI): Soft to palpation Auscultation: normal bowel sounds Skin: General skin exam: no rashes or lesions noted Neuro: General: patient oriented x3 Cognition (Neuro): normal cognition Extrem: Other: 2+ pitting edema bilaterally, and puffy face General: Yes normal to inspection Objective Data Current Medications Generic Name Dose Route Start Last Admin Trade Name Freq PRN Reason Stop Dose Admin Acetaminophen 650 mg 10/22/20 03:02 10/22/20 22:05 Acetaminophen 325 Mg Tablet PO 650 mg Q6H PRN Administration Pain, Mild (Pain Scale 1-3) Albuterol Sulfate 2.5 mg 10/22/20 08:33 Albuterol Sulfate (0.083%) 2.5 Mg/3 Ml Vial.Neb INHALE TID PRN Shortness Of Breath Amlodipine Besylate 5 mg 10/22/20 08:45 10/22/20 20:25 Amlodipine Besylate 5 Mg Tablet PO 5 mg BEDTIME PHAN Administration Protocol Aspirin 81 mg 10/22/20 09:00 10/23/20 08:22 Aspirin Enteric Coated 81 Mg Tablet. PO 81 mg DAILY PHAN Administration Buprenorphine/Naloxone 1 film 10/22/20 09:00 10/22/20 09:14 Buprenorphine/Naloxone 8/2 Mg Film SUBLINGUAL 1 film BID PHAN Administration Clonidine HCl 0.1 mg 10/22/20 09:00 10/23/20 08:22 Clonidine Hcl 0.1 Mg Tablet PO 0.1 mg BID PHAN Administration Protocol Cyclobenzaprine HCl 10 mg 10/22/20 11:30 10/23/20 08:22 Cyclobenzaprine Hcl 10 Mg Tablet PO 10 mg TID PRN Administration Restlessness Diltiazem HCl 180 mg 10/22/20 09:00 10/23/20 08:21 Diltiazem Hcl Cd 180 Mg Cap.Er.24h PO 180 mg DAILY PHAN Administration Protocol Docusate Sodium 100 mg 10/22/20 03:02 Docusate Sodium 100 Mg Capsule PO DAILY PRN Constipation Docusate Sodium 100 mg 10/22/20 08:33 Docusate Sodium 100 Mg Capsule PO BEDTIME PRN constipation Escitalopram Oxalate 5 mg 10/22/20 09:00 10/23/20 08:21 Escitalopram Oxalate 5 Mg Tablet PO 5 mg DAILY PHAN Administration Furosemide 40 mg 10/22/20 09:00 10/23/20 08:21 Furosemide 40 Mg/4 Ml Vial IVPUSH 40 mg DAILY PHAN Administration Protocol Heparin Sodium (Porcine) 5,000 unit 10/22/20 04:00 10/23/20 04:02 Heparin Sodium,Porcine 5,000 Unit/Ml Vial SUBCUT 5,000 unit Q12H PHAN Administration Hydralazine HCl 25 mg 10/22/20 15:00 10/23/20 08:21 Hydralazine Hcl 25 Mg Tablet PO 25 mg TID PHAN Administration Protocol Insulin Glargine 24 unit 10/22/20 09:00 10/23/20 08:23 Insulin Glargine,Hum.Rec.Anlog 100 Unit/Ml 10 Ml Vial SUBCUT 24 unit DAILY PHAN Administration Insulin Human Lispro 0 unit 10/22/20 07:30 10/23/20 08:23 Insulin Lispro 100 Unit/Ml 3 Ml Vial SUBCUT Not Given [facility] Protocol Mirtazapine 15 mg 10/22/20 21:00 10/22/20 20:25 Mirtazapine 15 Mg Tablet PO 15 mg BEDTIME PHAN Administration Multivitamins/Vitamin C 1 tab 10/23/20 09:00 10/23/20 08:21 Multivitamin Tablet PO 1 tab DAILY PHAN Administration Nicotine 21 mg 10/22/20 14:30 10/23/20 08:23 Nicotine 21 Mg Patch.Td24 TRANSDERMA 21 mg DAILY PHAN Administration Nitroglycerin 0.1 mg 10/22/20 09:00 10/23/20 08:22 Nitroglycerin 0.1 Mg Patch.Td24 TRANSDERMA 0.1 mg DAILY PHAN Administration Protocol Olanzapine 7.5 mg 10/22/20 21:00 10/22/20 20:25 Olanzapine 7.5 Mg Tablet PO 7.5 mg BEDTIME PHAN Administration Ondansetron HCl 4 mg 10/22/20 03:02 10/22/20 21:58 Ondansetron Hcl 4 Mg/2 Ml Vial IVPUSH 4 mg Q8H PRN Administration Nausea and Vomiting Polyethylene Glycol 17 gm 10/22/20 09:00 10/23/20 08:23 Polyethylene Glycol 3350 17 Gm Powd.Pack PO 17 gm DAILY PHAN Administration Polyethylene Glycol 17 gm 10/23/20 09:00 Polyethylene Glycol 3350 17 Gm Powd.Pack PO Q2D PRN Constipation Tiotropium [place] 1 puff 10/22/20 09:00 10/23/20 08:12 Tiotropium [place] 18 Mcg Cap.W.Dev INHALE Not Given RDAILY PHAN Trazodone HCl 100 mg 10/22/20 21:00 10/22/20 20:47 Trazodone Hcl 100 Mg Tablet PO Not Given BEDTIME MRX1 PHAN Labs CBC & Chem 7: 10/23/20 06:57 10/23/20 06:57 Assessment and Plan (1) Acute renal failure: Status: Acute (2) Acute exacerbation of CHF (congestive heart failure): Status: Acute (3) Leukocytosis: Status: Acute (4) Constipation: Status: Acute Assessment and Plan: 65-year-old female who presents to the hospital with lower extremity swelling # acute CHF exacerbation, acute diastolic heart failure precipitated by elevated BP, symptoms ar better -change to oral Lasix tod -get an echo 10/22 reveiwed EF 65% -cardiology input noted -monitor weight, I/O -heart failure education -Monitor electrolytes and renal function -replace K # VANDANA d/t cardiorenal syndrome, and should improve with diuretic if not then get nephrology consult, follow BUN Cr, baseline creatinine is 1.3 (CKD2) and now 2.66 10/22 and now 2.46 -check tomorrow # hypertension--uncontrolled -On Norvasc 5, clonidine 0.1 bid, diltiazem 180 daily and hydralazine 25 bid, and Losartan, hold Losartan d/t renal failure. Increase Norvasc to 10 -Med rec completed # leukocytosis--mild, no signs of infection, monitor # constipation--bowel regiment # diabetes--restart home Lantus, add SSI #Opioid dependence/opioid withdrawal--Suboxone and further recommendation by addiction service #Depression--continue Olanzapine, remron and Celexa DVT prophylaxis : Heparin subQ
[2020-10-23 11:11] LABS: Glucose, Whole Blood 142 mg/dL (60-115)
[2020-10-23 16:47] LABS: Glucose, Whole Blood 102 mg/dL (60-115)
[2020-10-23] MEDS: Acetaminophen 325 MG TABLET 650 MG PO (19:21)
[2020-10-23] MEDS: Insulin Lispro 100 UNIT/ML 3 ML VIAL SUBCUT (20:45)
[2020-10-23 20:46] LABS: Glucose, Whole Blood 186 mg/dL (60-115)
[2020-10-23] MEDS: Mirtazapine 15 MG TABLET PO (20:47)
[2020-10-23] MEDS: traZODone HCL 100 MG TABLET PO (20:48)
[2020-10-23] MEDS: OLANZapine 7.5 MG TABLET PO (20:49)
[2020-10-23] MEDS: amLODIPine Besylate 5 MG TABLET PO (20:49)
[2020-10-23] MEDS: ondansetron HCL 4 MG/2 ML VIAL IVPUSH (20:52)
[2020-10-24] VITALS (9 sets, daily range): BP systolic 130–186; BP diastolic 58–93; PULSE 72–80; RESP 14–18; TEMP 36.2–36.6; O2SAT 93–98; BMI 34.8
[2020-10-24] MEDS: Heparin Sodium,Porcine 5,000 UNIT/ML VIAL 5000 UNIT SUBCUT ×2 (05:22→16:13)
[2020-10-24 07:53] LABS: Glucose, Whole Blood 145 mg/dL (60-115)
[2020-10-24 09:31] LABS: Anion Gap 17 (12-20); Blood Urea Nitrogen 23 mg/dL (9-16); Calcium 8.1 mg/dL (8.4-10.2); Carbon Dioxide 27 mmol/L (22-29); Chloride 100 mmol/L (96-108); Creatinine Clr Calc Pharmacy 20.7; Estimated Glomerular Filt Rate 18; Glucose Random 245 mg/dL (60-115); Potassium 3.5 mmol/L (3.3-5.1); Sodium 140 mmol/L (135-145)
[2020-10-24 09:37] LABS: B Type Natriuretic Peptide 57 pg/mL (<100)
--- NOTE | 2020-10-24 09:56 | HO.PM.IMPN ---
Subjective Subjective Date of Service: 10/24/20 Interval History: Seen in f/u for exacerbation of heart failure, swelling is better, less sob and inquiring about going home Review of Systems leg edema is better, just trace now sob with activity no fever back pain Constitutional Constitutional: Reports as per HPI Physical Exam Vital Signs: Vital Signs: Last Vital Signs Temp 97.7 F 10/24/20 07:11 Pulse 77 10/24/20 07:11 Resp 16 10/24/20 07:11 BP 184/82 H 10/24/20 07:11 Pulse Ox 96 10/24/20 07:11 Body Mass Index 34.8 Const: General: cooperative and no acute distress Orientation/consciousness: patient oriented x3 Eyes: General: appearance normal, both eyes and all related structures Resp: Effort & Inspection: normal respiratory effort and able to speak in complete sentences Cardio: Other: trace leg edema Rate: regular rate Rhythm: regular rhythm GI: Palpation (GI): Soft to palpation Auscultation: normal bowel sounds Skin: General skin exam: no rashes or lesions noted Neuro: General: patient oriented x3 Cognition (Neuro): normal cognition Extrem: General: Yes normal to inspection Objective Data Current Medications Generic Name Dose Route Start Last Admin Trade Name Freq PRN Reason Stop Dose Admin Acetaminophen 650 mg 10/22/20 03:02 10/23/20 19:21 Acetaminophen 325 Mg Tablet PO 650 mg Q6H PRN Administration Pain, Mild (Pain Scale 1-3) Albuterol Sulfate 2.5 mg 10/22/20 08:33 Albuterol Sulfate (0.083%) 2.5 Mg/3 Ml Vial.Neb INHALE TID PRN Shortness Of Breath Amlodipine Besylate 5 mg 10/22/20 08:45 10/23/20 20:49 Amlodipine Besylate 5 Mg Tablet PO 5 mg BEDTIME PHAN Administration Protocol Aspirin 81 mg 10/22/20 09:00 10/23/20 08:22 Aspirin Enteric Coated 81 Mg Tablet. PO 81 mg DAILY PHAN Administration Buprenorphine/Naloxone 1 film 10/22/20 09:00 10/23/20 20:47 Buprenorphine/Naloxone 8/2 Mg Film SUBLINGUAL 1 film BID PHAN Administration Clonidine HCl 0.1 mg 10/22/20 09:00 10/23/20 20:48 Clonidine Hcl 0.1 Mg Tablet PO 0.1 mg BID PHAN Administration Protocol Diltiazem HCl 180 mg 10/22/20 09:00 10/23/20 08:21 Diltiazem Hcl Cd 180 Mg Cap.Er.24h PO 180 mg DAILY PHAN Administration Protocol Docusate Sodium 100 mg 10/22/20 03:02 Docusate Sodium 100 Mg Capsule PO DAILY PRN Constipation Docusate Sodium 100 mg 10/22/20 08:33 Docusate Sodium 100 Mg Capsule PO BEDTIME PRN constipation Escitalopram Oxalate 5 mg 10/22/20 09:00 10/23/20 08:21 Escitalopram Oxalate 5 Mg Tablet PO 5 mg DAILY PHAN Administration Furosemide 40 mg 10/22/20 09:00 10/23/20 08:21 Furosemide 40 Mg/4 Ml Vial IVPUSH 40 mg DAILY PHAN Administration Protocol Heparin Sodium (Porcine) 5,000 unit 10/22/20 04:00 10/24/20 05:22 Heparin Sodium,Porcine 5,000 Unit/Ml Vial SUBCUT 5,000 unit Q12H PHAN Administration Hydralazine HCl 25 mg 10/22/20 15:00 10/23/20 20:47 Hydralazine Hcl 25 Mg Tablet PO 25 mg TID PHAN Administration Protocol Insulin Glargine 24 unit 10/22/20 09:00 10/23/20 08:23 Insulin Glargine,Hum.Rec.Anlog 100 Unit/Ml 10 Ml Vial SUBCUT 24 unit DAILY PHAN Administration Insulin Human Lispro 0 unit 10/22/20 07:30 10/24/20 07:59 Insulin Lispro 100 Unit/Ml 3 Ml Vial SUBCUT Not Given QIDACHS [facility] Protocol Mirtazapine 15 mg 10/22/20 21:00 10/23/20 20:47 Mirtazapine 15 Mg Tablet PO 15 mg BEDTIME PHAN Administration Multivitamins/Vitamin C 1 tab 10/23/20 09:00 10/23/20 08:21 Multivitamin Tablet PO 1 tab DAILY PHAN Administration Nicotine 21 mg 10/22/20 14:30 10/23/20 08:23 Nicotine 21 Mg Patch.Td24 TRANSDERMA 21 mg DAILY PHAN Administration Nitroglycerin 0.1 mg 10/22/20 09:00 10/23/20 08:22 Nitroglycerin 0.1 Mg Patch.Td24 TRANSDERMA 0.1 mg DAILY PHAN Administration Protocol Olanzapine 7.5 mg 10/22/20 21:00 10/23/20 20:49 Olanzapine 7.5 Mg Tablet PO 7.5 mg BEDTIME PHAN Administration Ondansetron HCl 4 mg 10/22/20 03:02 10/23/20 20:52 Ondansetron Hcl 4 Mg/2 Ml Vial IVPUSH 4 mg Q8H PRN Administration Nausea and Vomiting Polyethylene Glycol 17 gm 10/22/20 09:00 10/23/20 08:23 Polyethylene Glycol 3350 17 Gm Powd.Pack PO 17 gm DAILY PHAN Administration Polyethylene Glycol 17 gm 10/23/20 09:00 Polyethylene Glycol 3350 17 Gm Powd.Pack PO Q2D PRN Constipation Tiotropium [place] 1 puff 10/22/20 09:00 10/24/20 07:53 Tiotropium [place] 18 Mcg Cap.W.Dev INHALE Not Given RDAILY PHAN Trazodone HCl 100 mg 10/22/20 21:00 10/23/20 20:50 Trazodone Hcl 100 Mg Tablet PO Not Given BEDTIME MRX1 PHAN Labs CBC & Chem 7: 10/23/20 06:57 10/24/20 08:37 Assessment and Plan (1) Acute renal failure: Status: Acute (2) Acute exacerbation of CHF (congestive heart failure): Status: Acute (3) Leukocytosis: Status: Acute (4) Constipation: Status: Acute Assessment and Plan: 65-year-old female who presents to the hospital with lower extremity swelling # acute CHF exacerbation, acute diastolic heart failure precipitated by elevated BP, symptoms ar better -change to oral Lasix tod - echo 10/22 reveiwed EF 65% -cardiology input noted -monitor weight, I/O -heart failure education -Monitor electrolytes and renal function -replace K as needed, # VANDANA d/t cardiorenal syndrome, and should improve with diuretic if not then get nephrology consult, follow BUN Cr, baseline creatinine is 1.3 (CKD2) and now 2.66 10/22 and now 2.46 -check tomorrow # hypertension--uncontrolled -On Norvasc 5, clonidine 0.1 bid, diltiazem 180 daily and hydralazine 25 bid, and Losartan, hold Losartan d/t renal failure. Increase Norvasc to 10 and increase clonidine to 0.2 # leukocytosis--mild, no signs of infection, monitor # constipation--bowel regiment # diabetes--restart home Lantus, add SSI #Opioid dependence/opioid withdrawal--Suboxone and further recommendation by addiction service #Depression--continue Olanzapine, remron and Celexa DVT prophylaxis : Heparin subQ
[2020-10-24] MEDS: Insulin Glargine,Hum.rec.anlog 100 UNIT/ML 10 ML VIAL 24 UNIT SUBCUT (10:37)
[2020-10-24] MEDS: dilTIAZem HCL CD 180 MG CAP.ER.24H PO (10:38)
[2020-10-24] MEDS: Aspirin Enteric Coated 81 MG TABLET.DR PO (10:38)
[2020-10-24] MEDS: Multivitamin TABLET 1 TAB PO (10:38)
[2020-10-24] MEDS: Nicotine 21 MG PATCH.TD24 TRANSDERMA (10:39)
[2020-10-24] MEDS: Escitalopram Oxalate 5 MG TABLET PO (10:39)
[2020-10-24] MEDS: Buprenorphine/Naloxone 8/2 mg FILM 1 FILM SUBLINGUAL ×2 (10:39→20:38)
[2020-10-24 11:18] LABS: Glucose, Whole Blood 217 mg/dL (60-115)
[2020-10-24] MEDS: Insulin Lispro 100 UNIT/ML 3 ML VIAL SUBCUT (11:19)
[2020-10-24 14:46] LABS: Glucose, Whole Blood 66 mg/dL (60-115)
[2020-10-24 15:04] LABS: Glucose, Whole Blood 121 mg/dL (60-115)
--- NOTE | 2020-10-24 15:32 | PM.CNNEP ---
History of Present Illness Reason for Consult Consult date: 10/24/20 Reason for consult: VANDANA Chief Complaint Chief complaint: CHF History of Present Illness Narrative: is a 65-year-old female with past medical history of IV drug use, diabetes, hypertension leg swelling as well as elevated blood pressure who presented to the hospital with worsening leg swelling without any dyspnea, orthopnea or PND. she also had been having elevated blood pressure in the 200s. She had no abdominal pain nausea or vomiting, no urinary symptoms, no fever, no headache or change in vision, with with chest pain or palpitations. On arrival to the ED patient hemodynamically stable with a blood pressure of 156/68, but worsened to , creatinine of 2.66 with a baseline around 1.4. Nephrology has been consulted to assit in her clinical care during her current hospital stay. Review of Systems Review of Systems Yes all other systems are reviewed and are negative PMFSH Past Medical History Medical History Diabetes mellitus Hypertension Social History Social History Household Members: None Housing: Apartment Do you presently have visiting nurse or other home services: Yes Patient Tobacco Use Status: Current everyday Tobacco user Tobacco use type: Cigarette Cigarette Packs Per Day: 1 Cigarettes Per Day: 20.0 Smoked in Last 30 Days: Yes Patient Interested in Nicotine Replacement: Yes Patient Given Instructions on How to Stop Smoking: No Second Hand Smoke Exposure: No Use of substances other than those prescribed or required for medical reasons: Yes Substance Use Type: Heroin Substance Use Frequency: Occasionally Last Used Substance: Days (ago) Currently Displaying Signs/Symptoms of Drug Intoxication Withdrawal: No Any prior treatment program specific to substance use: Yes Have you been hit, kicked, punched, or otherwise hurt by someone within the past year? If so, by whom?: No Do you feel safe in your current relationship?: No Current Relationship Is there a partner from a previous relationship who is making you feel unsafe now?: No Are you made to feel afraid or neglected: No Advance Directives: No Advance Directives Information Provided: No (declined) Do you have thoughts of harming others: None Do you have a plan to hurt others: No Plan Recently lost weight without trying: No Nutrition Risks: No Nutritional Risk Patient : No : No Poor oral hygiene: No service: No Current occupational status: unemployed Meds Allergies Allergy/AdvReac Type Severity Reaction Status Date / Time No Known Allergies Allergy Mild NOT Verified 10/21/20 18:58 APPLICABLE Active Medications: Current Medications Generic Name Dose Route Start Last Admin Trade Name Freq PRN Reason Stop Dose Admin Acetaminophen 650 mg 10/22/20 03:02 10/23/20 19:21 Acetaminophen 325 Mg Tablet PO 650 mg Q6H PRN Administration Pain, Mild (Pain Scale 1-3) Albuterol Sulfate 2.5 mg 10/22/20 08:33 Albuterol Sulfate (0.083%) 2.5 Mg/3 Ml Vial.Neb INHALE TID PRN Shortness Of Breath Amlodipine Besylate 10 mg 10/25/20 09:00 Amlodipine Besylate 5 Mg Tablet PO DAILY [facility] Protocol Aspirin 81 mg 10/22/20 09:00 10/24/20 10:38 Aspirin Enteric Coated 81 Mg Tablet.Dr PO 81 mg DAILY PHAN Administration Buprenorphine/Naloxone 1 film 10/22/20 09:00 10/24/20 10:39 Buprenorphine/Naloxone 8/2 Mg Film SUBLINGUAL 1 film BID PHAN Administration Clonidine HCl 0.2 mg 10/24/20 21:00 Clonidine Hcl 0.1 Mg Tablet PO BID PHAN Protocol Diltiazem HCl 180 mg 10/22/20 09:00 10/24/20 10:38 Diltiazem Hcl Cd 180 Mg Cap.Er.24h PO 180 mg DAILY PHAN Administration Protocol Docusate Sodium 100 mg 10/22/20 03:02 Docusate Sodium 100 Mg Capsule PO DAILY PRN Constipation Docusate Sodium 100 mg 10/22/20 08:33 Docusate Sodium 100 Mg Capsule PO BEDTIME PRN constipation Escitalopram Oxalate 5 mg 10/22/20 09:00 10/24/20 10:39 Escitalopram Oxalate 5 Mg Tablet PO 5 mg DAILY [facility]AN Administration Furosemide 40 mg 10/25/20 09:00 Furosemide 40 Mg Tablet PO DAILY [facility]AN Protocol Heparin Sodium (Porcine) 5,000 unit 10/22/20 04:00 10/24/20 05:22 Heparin Sodium,Porcine 5,000 Unit/Ml Vial SUBCUT 5,000 unit Q12H PHAN Administration Hydralazine HCl 25 mg 10/22/20 15:00 10/24/20 10:39 Hydralazine Hcl 25 Mg Tablet PO Not Given TID [facility] Protocol Insulin Glargine 24 unit 10/22/20 09:00 10/24/20 10:37 Insulin Glargine,Hum.Rec.Anlog 100 Unit/Ml 10 Ml Vial SUBCUT 24 unit DAILY [facility] Administration Insulin Human Lispro 0 unit 10/22/20 07:30 10/24/20 11:19 Insulin Lispro 100 Unit/Ml 3 Ml Vial SUBCUT 4 unit QIDACHS [facility] Administration Protocol Mirtazapine 15 mg 10/22/20 21:00 10/23/20 20:47 Mirtazapine 15 Mg Tablet PO 15 mg BEDTIME [facility] Administration Multivitamins/Vitamin C 1 tab 10/23/20 09:00 10/24/20 10:38 Multivitamin Tablet PO 1 tab DAILY [facility] Administration Nicotine 21 mg 10/22/20 14:30 10/24/20 10:39 Nicotine 21 Mg Patch.Td24 TRANSDERMA 21 mg DAILY [facility] Administration Nitroglycerin 0.1 mg 10/22/20 09:00 10/24/20 10:40 Nitroglycerin 0.1 Mg Patch.Td24 TRANSDERMA Not Given DAILY [facility] Protocol Olanzapine 7.5 mg 10/22/20 21:00 10/23/20 20:49 Olanzapine 7.5 Mg Tablet PO 7.5 mg BEDTIME [facility] Administration Ondansetron HCl 4 mg 10/22/20 03:02 10/23/20 20:52 Ondansetron Hcl 4 Mg/2 Ml Vial IVPUSH 4 mg Q8H PRN Administration Nausea and Vomiting Polyethylene Glycol 17 gm 10/22/20 09:00 10/24/20 10:45 Polyethylene Glycol 3350 17 Gm Powd.Pack PO Not Given DAILY [facility] Polyethylene Glycol 17 gm 10/23/20 09:00 Polyethylene Glycol 3350 17 Gm Powd.Pack PO Q2D PRN Constipation Tiotropium [place] 1 puff 10/22/20 09:00 10/24/20 07:53 Tiotropium [place] 18 Mcg Cap.W.Dev INHALE Not Given RDAILY [facility] Trazodone HCl 100 mg 10/22/20 21:00 10/23/20 20:50 Trazodone Hcl 100 Mg Tablet PO Not Given BEDTIME MRX1 [facility] Home Medications Medication Instructions Recorded Confirmed Last Taken Type acetaminophen 1 tab PO Q8H PRN 10/22/20 10/22/20 Unknown History albuterol sulfate 1 amp INHALATION TID PRN 10/22/20 10/22/20 Unknown History amlodipine 5 mg PO BEDTIME 10/22/20 10/22/20 Unknown History aspirin 81 mg PO QAM 10/22/20 10/22/20 Unknown History buprenorphine-naloxone [Suboxone] 1 strip SUBLINGUAL BID 10/22/20 10/22/20 Unknown History clonidine HCl 0.1 mg PO BID 10/22/20 10/22/20 Unknown History diclofenac sodium 2 g TOPICAL QID 10/22/20 10/22/20 Unknown History diltiazem HCl 180 mg PO QAM 10/22/20 10/22/20 Unknown History docusate sodium 1 - 2 cap PO BEDTIME PRN 10/22/20 10/22/20 Unknown History escitalopram oxalate 5 mg PO QAM 10/22/20 10/22/20 Unknown History hydralazine 25 mg PO BID 10/22/20 10/22/20 Unknown History insulin glargine [Lantus Solostar 24 unit SUBCUT DAILY 10/22/20 10/22/20 Unknown History U-100 Insulin] insulin lispro [Humalog KwikPen 4 - 12 unit SUBCUT TIDAC 10/22/20 10/22/20 Unknown History Insulin] losartan 100 mg PO QAM 10/22/20 10/22/20 Unknown History mirtazapine 15 mg PO BEDTIME 10/22/20 10/22/20 Unknown History multivitamin [One Daily 1 tab PO QAM 10/22/20 10/22/20 Unknown History Multivitamin] olanzapine 7.5 mg PO BEDTIME 10/22/20 10/22/20 Unknown History polyethylene glycol 3350 1 packet PO NEEDED 10/22/20 10/22/20 Unknown History tiotropium bromide [Spiriva with 1 cap INHALATION DAILY 10/22/20 10/22/20 Unknown History HandiHaler] trazodone 1 - 2 tab PO BEDTIME 10/22/20 10/22/20 Unknown History Physical Exam Vital Signs: Last Vital Signs Temp 97.9 F 10/24/20 15:09 Pulse 76 10/24/20 15:09 Resp 15 10/24/20 15:09 BP 186/77 H 10/24/20 15:09 Pulse Ox 96 10/24/20 15:09 Body Mass Index 34.8 Const General: cooperative; No acute distress Eyes EOM: EOMs intact bilaterally Neck Neck: Yes supple Resp Auscultation: clear to auscultation bilaterally Cardio Jugular venous distension: no JVD GI Palpation (GI): Soft to palpation Neuro General: moves all extremities Results Lab Results Result Diagrams: 10/23/20 06:57 10/24/20 08:37 Lab results: Chemistry 10/21/20 10/23/20 10/24/20 20:46 06:57 08:37 Sodium 142 142 140 Potassium 4.4 3.2 L D 3.5 Carbon Dioxide 24 30 H 27 BUN 27 H 26 H 23 H Creatinine 2.66 H 2.46 H 2.68 H Calcium 8.6 D 8.3 L 8.1 L Hematology 10/21/20 10/23/20 20:46 06:57 WBC 11.1 H 9.6 Hgb 11.8 L 11.4 L Plt Count 282 282 Assessment and Plan (1) Acute renal failure: Qualifiers: Acute renal failure type: unspecified Qualified Code(s): N17.9 - Acute kidney failure, unspecified Status: Acute VANDANA due to compromised renal perfusion with resultant tubular injury from CRS She was taking ARB at home which is oh hold since presentation No reason to suspect any GN/AIN. No ACEI/ARB for now 2 Gram Na restricted diet/ Daily weights/ continue diuresis Could replace Amlodipine with Nitrate; Labs AM Shall continue to closely follow up Procedures Date of Service Date of Service: 10/24/20
[2020-10-24 15:59] LABS: Glucose, Whole Blood 136 mg/dL (60-115)
[2020-10-24] MEDS: Acetaminophen 325 MG TABLET 650 MG PO ×2 (16:15→23:40)
[2020-10-24] MEDS: hydrALAZINE HCl 25 MG TABLET PO ×2 (16:16→20:44)
[2020-10-24] MEDS: Mirtazapine 15 MG TABLET PO (20:38)
[2020-10-24] MEDS: OLANZapine 7.5 MG TABLET PO (20:38)
[2020-10-24] MEDS: traZODone HCL 100 MG TABLET PO ×2 (20:39→23:40)
[2020-10-24] MEDS: cloNIDine HCL 0.1 MG TABLET 0.2 MG PO (20:43)
--- NOTE | 2020-10-24 20:52 | PC.NURSE ---
P BP elevated 182/93 pulse 74 ,c/o # 8 back pain I scheduled Clonidine,Hydralazine administered,Dr. Torres notified E will monitor
[2020-10-24 20:57] LABS: Glucose, Whole Blood 85 mg/dL (60-115)
[2020-10-24] MEDS: traMADoL HCL 50 MG TABLET PO (21:36)
[2020-10-25] VITALS (7 sets, daily range): BP systolic 140–173; BP diastolic 69–90; PULSE 66–74; RESP 16–18; TEMP 36.1–36.9; O2SAT 94–100; BMI 35.6
[2020-10-25] MEDS: Heparin Sodium,Porcine 5,000 UNIT/ML VIAL 5000 UNIT SUBCUT ×2 (04:11→16:03)
[2020-10-25] MEDS: ondansetron HCL 4 MG/2 ML VIAL IVPUSH ×2 (04:15→16:02)
[2020-10-25 07:40] LABS: Anion Gap 13 (12-20); Blood Urea Nitrogen 24 mg/dL (9-16); Carbon Dioxide 28 mmol/L (22-29); Chloride 102 mmol/L (96-108); Creatinine Clr Calc Pharmacy 21.5; Estimated Glomerular Filt Rate 18; Glucose Random 162 mg/dL (60-115); Potassium 3.4 mmol/L (3.3-5.1); Sodium 140 mmol/L (135-145)
[2020-10-25 07:52] LABS: Glucose, Whole Blood 181 mg/dL (60-115)
[2020-10-25] MEDS: Insulin Glargine,Hum.rec.anlog 100 UNIT/ML 10 ML VIAL 24 UNIT SUBCUT (07:58)
[2020-10-25] MEDS: Buprenorphine/Naloxone 8/2 mg FILM 1 FILM SUBLINGUAL ×2 (07:58→20:38)
[2020-10-25] MEDS: Escitalopram Oxalate 5 MG TABLET PO (07:59)
[2020-10-25] MEDS: dilTIAZem HCL CD 180 MG CAP.ER.24H PO (07:59)
[2020-10-25] MEDS: Insulin Lispro 100 UNIT/ML 3 ML VIAL SUBCUT ×2 (07:59→20:37)
[2020-10-25] MEDS: cloNIDine HCL 0.1 MG TABLET 0.2 MG PO ×2 (08:00→20:39)
[2020-10-25] MEDS: hydrALAZINE HCl 25 MG TABLET PO ×3 (08:00→20:39)
[2020-10-25] MEDS: Furosemide 40 MG TABLET PO (08:00)
[2020-10-25] MEDS: Acetaminophen 325 MG TABLET 650 MG PO ×3 (08:00→22:19)
[2020-10-25] MEDS: Nitroglycerin 0.1 MG PATCH.TD24 TRANSDERMA (08:01)
[2020-10-25] MEDS: amLODIPine Besylate 5 MG TABLET 10 MG PO (08:01)
[2020-10-25] MEDS: Aspirin Enteric Coated 81 MG TABLET.DR PO (08:01)
[2020-10-25] MEDS: Nicotine 21 MG PATCH.TD24 TRANSDERMA (08:02)
[2020-10-25] MEDS: polyethylene glycoL 3350 17 GM POWD.PACK PO (08:02)
[2020-10-25] MEDS: Multivitamin TABLET 1 TAB PO (08:03)
[2020-10-25 12:00] LABS: Glucose, Whole Blood 117 mg/dL (60-115)
--- NOTE | 2020-10-25 13:13 | P.PNIM_ITS ---
Subjective Subjective Date of Service: 10/25/20 <Angelica Ashby NP - Last Filed: 10/25/20 13:19> 10/25/20 <Socrates Sykes MD - Last Filed: 10/25/20 19:51> Interval History: Follow up heart failure Breathing is better <Angelica Ashby NP - Last Filed: 10/25/20 13:19> Physical Exam Vital Signs: Vital Signs: Last Vital Signs Temp 97.3 F 10/25/20 12:00 Pulse 73 10/25/20 12:00 Resp 18 10/25/20 12:00 BP 140/69 H 10/25/20 12:00 Pulse Ox 100 10/25/20 12:00 Body Mass Index 35.6 <Angelica Ashby NP - Last Filed: 10/25/20 13:19> Appearing in no acute distress lung sounds are clear to auscultation heart regular rate rhythm, clear S1, S2 positive bowel sounds, abdomen is soft, nontender neuro patient is alert x3, no focal deficits <Angelica Ashby NP - Last Filed: 10/25/20 13:19> Objective Data Current Medications Generic Name Dose Route Start Last Admin Trade Name Freq PRN Reason Stop Dose Admin Acetaminophen 650 mg 10/22/20 03:02 10/25/20 08:00 Acetaminophen 325 Mg Tablet PO 650 mg Q6H PRN Administration Pain, Mild (Pain Scale 1-3) Albuterol Sulfate 2.5 mg 10/22/20 08:33 Albuterol Sulfate (0.083%) 2.5 Mg/3 Ml Vial.Neb INHALE TID PRN Shortness Of Breath Amlodipine Besylate 10 mg 10/25/20 09:00 10/25/20 08:01 Amlodipine Besylate 5 Mg Tablet PO 10 mg DAILY PHAN Administration Protocol Aspirin 81 mg 10/22/20 09:00 10/25/20 08:01 Aspirin Enteric Coated 81 Mg Tablet. PO 81 mg DAILY PHAN Administration Buprenorphine/Naloxone 1 film 10/22/20 09:00 10/25/20 07:58 Buprenorphine/Naloxone 8/2 Mg Film SUBLINGUAL 1 film BID PHAN Administration Clonidine HCl 0.2 mg 10/24/20 21:00 10/25/20 08:00 Clonidine Hcl 0.1 Mg Tablet PO 0.2 mg BID PHAN Administration Protocol Diltiazem HCl 180 mg 10/22/20 09:00 10/25/20 07:59 Diltiazem Hcl Cd 180 Mg Cap.Er.24h PO 180 mg DAILY [facility]AN Administration Protocol Docusate Sodium 100 mg 10/22/20 03:02 Docusate Sodium 100 Mg Capsule PO DAILY PRN Constipation Docusate Sodium 100 mg 10/22/20 08:33 Docusate Sodium 100 Mg Capsule PO BEDTIME PRN constipation Escitalopram Oxalate 5 mg 10/22/20 09:00 10/25/20 07:59 Escitalopram Oxalate 5 Mg Tablet PO 5 mg DAILY [facility]AN Administration Furosemide 40 mg 10/25/20 09:00 10/25/20 08:00 Furosemide 40 Mg Tablet PO 40 mg DAILY [facility]AN Administration Protocol Heparin Sodium (Porcine) 5,000 unit 10/22/20 04:00 10/25/20 04:11 Heparin Sodium,Porcine 5,000 Unit/Ml Vial SUBCUT 5,000 unit Q12H [facility]AN Administration Hydralazine HCl 25 mg 10/22/20 15:00 10/25/20 08:00 Hydralazine Hcl 25 Mg Tablet PO 25 mg TID PHAN Administration Protocol Insulin Glargine 24 unit 10/22/20 09:00 10/25/20 07:58 Insulin Glargine,Hum.Rec.Anlog 100 Unit/Ml 10 Ml Vial SUBCUT 24 unit DAILY [facility] Administration Insulin Human Lispro 0 unit 10/22/20 07:30 10/25/20 12:06 Insulin Lispro 100 Unit/Ml 3 Ml Vial SUBCUT Not Given QIDACHS [facility] Protocol Mirtazapine 15 mg 10/22/20 21:00 10/24/20 20:38 Mirtazapine 15 Mg Tablet PO 15 mg BEDTIME [facility] Administration Multivitamins/Vitamin C 1 tab 10/23/20 09:00 10/25/20 08:03 Multivitamin Tablet PO 1 tab DAILY [facility] Administration Nicotine 21 mg 10/22/20 14:30 10/25/20 08:02 Nicotine 21 Mg Patch.Td24 TRANSDERMA 21 mg DAILY [facility]AN Administration Nitroglycerin 0.1 mg 10/22/20 09:00 10/25/20 08:01 Nitroglycerin 0.1 Mg Patch.Td24 TRANSDERMA 0.1 mg DAILY [facility]AN Administration Protocol Olanzapine 7.5 mg 10/22/20 21:00 10/24/20 20:38 Olanzapine 7.5 Mg Tablet PO 7.5 mg BEDTIME [facility] Administration Ondansetron HCl 4 mg 10/22/20 03:02 10/25/20 04:15 Ondansetron Hcl 4 Mg/2 Ml Vial IVPUSH 4 mg Q8H PRN Administration Nausea and Vomiting Polyethylene Glycol 17 gm 10/22/20 09:00 10/25/20 08:02 Polyethylene Glycol 3350 17 Gm Powd.Pack PO 17 gm DAILY PHAN Administration Polyethylene Glycol 17 gm 10/23/20 09:00 Polyethylene Glycol 3350 17 Gm Powd.Pack PO Q2D PRN Constipation Tiotropium [place] 1 puff 10/22/20 09:00 10/25/20 08:12 Tiotropium [place] 18 Mcg Cap.W.Dev INHALE Not Given RDAILY PHAN Trazodone HCl 100 mg 10/22/20 21:00 10/24/20 23:40 Trazodone Hcl 100 Mg Tablet PO 100 mg BEDTIME MRX1 [facility]AN Administration <Angelica Ashby NP - Last Filed: 10/25/20 13:19> Labs CBC & Chem 7: : 10/23/20 06:57 10/25/20 06:16 <Angelica Ashby NP - Last Filed: 10/25/20 13:19> Assessment and Plan (1) Acute renal failure: Status: Acute <Angelica Ashby NP - Last Filed: 10/25/20 13:19> Assessment and Plan: 65-year-old female who presents to the hospital with lower extremity swelling Acute CHF exacerbation, acute diastolic heart failure precipitated by elevated BP -echo 10/22 reveiwed EF 65% -cardiology input noted -monitor weight, I/O -heart failure education -Monitor electrolytes and renal function VANDANA d/t cardiorenal syndrome, baseline creatinine is 1.3 -Nephro -Follow BMP -Hold ARB/ANIRUDH Hypertension. uncontrolled -increase Norvasc and clonidine -continue diltiazem 180 daily and hydralazine 25 bid Diabetes -Lantus -SS, ADA 2gm na diet Opioid dependence/opioid withdrawal -Suboxone and further recommendation by addiction service Depression. -continue Olanzapine, remron and Celexa DVT prophylaxis with Heparin subQ Attending: Dr. Sykes Full code <Angelica Ashby NP - Last Filed: 10/25/20 13:19> (2) Essential hypertension: Status: Acute <Angelica Ashby NP - Last Filed: 10/25/20 13:19> (3) Acute exacerbation of CHF (congestive heart failure): Status: Acute <Angelica Ashby NP - Last Filed: 10/25/20 13:19> Assessment and Plan: I saw and examined the patient and discussed finding with SUPERVISOR [employer]ANGING, I agre e with finding management as stated above. Probably home tomorrow, <Socrates Sykes MD - Last Filed: 10/25/20 19:51>
--- NOTE | 2020-10-25 13:24 | MHC.CM.PN ---
NURSE BICYCLE II ASSEMBLER NOTE ELECTRONIC MEDICAL RECORD REVIEWED ALONG WITH CASE DISCUSSED WITH STAFF NURSE AND ON MULTIPLE DISCIPLINARY ROUNDS, CALLED LAST SUNDAY TO [facility] CONFIRMED THAT SHE RECEIVED NURSING VISITS BID FOR INSULIN ADMINISTRATION AND MEDICATION MANAGEMENT DISCHARGE PLAN HOME WITH [facility] [phone] AND FAX [phone], FOR INSULIN ADMINISTRATION BID MEDICATION RECONCILIATION [facility] COMPOUNDER SELF RESUMPTION OF HER [facility] CLINIC AT THE [facility] SELF RESUMPTION OF HER SERVICES WITH HER MENTAL HEALTH COUNSELING PCP BARRETT COONEY PATIENT TO CALL FOR POST HOSPITAL DISCHARGE FOLLOW UP TRANSPORTATION TO BE FURTHER DETERMINED
--- NOTE | 2020-10-25 15:33 | MHC.CM.PN ---
nurse career development associate note will not be discharged today secondary to kidney status, per hospitalist juan informed [facility] care of this spoke with Yin
[2020-10-25 16:20] LABS: Glucose, Whole Blood 146 mg/dL (60-115)
--- NOTE | 2020-10-25 19:17 | PM.PNNEP ---
Subjective Subjective Date of Service: 10/25/20 Interval history: Seen and examined.events noted Breathing much improved and leg swelling decreased Physical Exam Vital Signs: Vital Signs: Last Vital Signs Temp 96.9 F 10/25/20 19:13 Pulse 73 10/25/20 19:13 Resp 16 10/25/20 19:13 BP 166/79 H 10/25/20 19:13 Pulse Ox 97 10/25/20 19:13 Body Mass Index 35.6 Const: General: cooperative; No acute distress Eyes: EOM: EOMs intact bilaterally Neck: Neck: Yes supple Resp: Auscultation: clear to auscultation bilaterally Cardio: Jugular venous distension: no JVD GI: Palpation (GI): Soft to palpation Neuro: General: moves all extremities Objective Data Labs CBC & Chem 7: 10/23/20 06:57 10/25/20 06:16 Labs: Laboratory Results - last 24 hr 10/24/20 10/25/20 10/25/20 20:45 06:16 07:30 Sodium 140 Potassium 3.4 Chloride 102 Carbon Dioxide 28 Anion Gap 13 BUN 24 H Creatinine 2.62 H Estim Creat Clear Calc 21.5 Estimated GFR 18 POC Glucose 85 181 H Random Glucose 162 H Calcium 8.0 L 10/25/20 10/25/20 11:42 16:09 Sodium Potassium Chloride Carbon Dioxide Anion Gap BUN Creatinine Estim Creat Clear Calc Estimated GFR POC Glucose 117 H 146 H Random Glucose Calcium Assessment & Plan Assessment and plan (1) Acute renal failure: Status: Acute Assessment and Plan: 1. VANDANA: Scr stuck at 2.6whereas bsl Scr 1.4 range; suspect multifact ATN vs CRSyn contributing to renal tubular ischemia and intolerance to ANIRUDH; other possibiltiies need to be consider given Scr delayed recovery off ARB AIN AGN: assoc with cocaine use/vasculitis HTN renal injury Obs: unlikely but need to r/o 2. 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 dCHF w DDysfunc and severe HTN w vol Overload: improved with diuresis and BP control REC: sero/urine studies and renal U/S; if Scr cont to incr will need to hold asa and consider kidney Bx will follow gee with team Time Spent With Patient Time: Total time spent is greater than 50% in coordination of care (as documented) at patient's floor/unit and/or counseling patient: Procedures Date of Service Date of Service: 10/25/20
[2020-10-25 20:19] LABS: Glucose, Whole Blood 151 mg/dL (60-115)
[2020-10-25] MEDS: Mirtazapine 15 MG TABLET PO (20:38)
[2020-10-25] MEDS: traZODone HCL 100 MG TABLET PO ×2 (20:39→22:22)
[2020-10-25] MEDS: OLANZapine 7.5 MG TABLET PO (20:40)
[2020-10-26] VITALS (10 sets, daily range): BP systolic 131–178; BP diastolic 53–85; PULSE 63–84; RESP 16–19; TEMP 36.1–36.7; O2SAT 92–98; BMI 36.4
[2020-10-26] MEDS: ondansetron HCL 4 MG/2 ML VIAL IVPUSH (02:24)
[2020-10-26 03:50] LABS: Appearance Urine CLEAR; Color Urine YELLOW; Glucose Urine UA 100 MG/DL (NEG); Leukocyte Esterase Urine NEG (NEG); Nitrite Urine NEG (NEG); RBC Urine 0-2 /HPF (0); Squamous Epithelial Cell Urine 2+ /LPF; Urine Blood NEG (NEG); Urine Ketones NEG (NEG); Urine Protein 3+ MG/DL (NEG-TRACE)
[2020-10-26 04:30] LABS: Creatinine Urine 74.08 mg/dL; Total Protein Urine Random 399 mg/dL (<12)
[2020-10-26] MEDS: Acetaminophen 325 MG TABLET 650 MG PO ×3 (04:50→19:55)
[2020-10-26] MEDS: Heparin Sodium,Porcine 5,000 UNIT/ML VIAL 5000 UNIT SUBCUT ×2 (04:50→16:00)
[2020-10-26 07:12] LABS: Anion Gap 13 (12-20); Blood Urea Nitrogen 32 mg/dL (9-16); Calcium 7.9 mg/dL (8.4-10.2); Carbon Dioxide 29 mmol/L (22-29); Chloride 102 mmol/L (96-108); Creatinine Clr Calc Pharmacy 19.1; Estimated Glomerular Filt Rate 16; Glucose Random 135 mg/dL (60-115); Potassium 3.7 mmol/L (3.3-5.1); Sodium 140 mmol/L (135-145)
[2020-10-26 07:39] LABS: Glucose, Whole Blood 126 mg/dL (60-115)
[2020-10-26] MEDS: Insulin Glargine,Hum.rec.anlog 100 UNIT/ML 10 ML VIAL 24 UNIT SUBCUT (07:41)
[2020-10-26] MEDS: Nicotine 21 MG PATCH.TD24 TRANSDERMA (07:42)
[2020-10-26] MEDS: Nitroglycerin 0.1 MG PATCH.TD24 TRANSDERMA (07:42)
[2020-10-26] MEDS: cloNIDine HCL 0.1 MG TABLET 0.2 MG PO ×2 (07:43→19:58)
[2020-10-26] MEDS: Escitalopram Oxalate 5 MG TABLET PO (07:43)
[2020-10-26] MEDS: Aspirin Enteric Coated 81 MG TABLET.DR PO (07:43)
[2020-10-26] MEDS: Furosemide 40 MG TABLET PO (07:43)
[2020-10-26] MEDS: dilTIAZem HCL CD 180 MG CAP.ER.24H PO (07:43)
[2020-10-26] MEDS: hydrALAZINE HCl 25 MG TABLET PO ×3 (07:43→19:57)
[2020-10-26] MEDS: amLODIPine Besylate 5 MG TABLET 10 MG PO (07:43)
[2020-10-26] MEDS: Buprenorphine/Naloxone 8/2 mg FILM 1 FILM SUBLINGUAL ×2 (07:44→19:54)
[2020-10-26] MEDS: Multivitamin TABLET 1 TAB PO (07:44)
[2020-10-26] MEDS: polyethylene glycoL 3350 17 GM POWD.PACK PO (07:44)
[2020-10-26 08:43] LABS: EOS Counted 1 CELLS; EOS QC POS YES; Eosinophils % 1.1 %; WBC, Counted 88 CELLS
[2020-10-26 08:45] LABS: EOS Stain Quality OK YES
[2020-10-26 11:42] LABS: Glucose, Whole Blood 147 mg/dL (60-115)
--- NOTE | 2020-10-26 14:45 | P.PNIM_ITS ---
Subjective Subjective Date of Service: 10/26/20 <Angelica Ashby NP - Last Filed: 10/26/20 15:03> 10/26/20 <Socartes Sykes MD - Last Filed: 10/26/20 21:03> Interval History: Follow-up VANDANA No complaints of pain or shortness of breath Edema is improved Creatinine not improving <Angelica Ashby NP - Last Filed: 10/26/20 15:03> Physical Exam Vital Signs: Vital Signs: Last Vital Signs Temp 97.5 F 10/26/20 11:24 Pulse 71 10/26/20 11:24 Resp 16 10/26/20 11:24 BP 166/75 H 10/26/20 11:24 Pulse Ox 97 10/26/20 11:24 Body Mass Index 36.4 <Angelica Ashby NP - Last Filed: 10/26/20 15:03> Appearing in no acute distress lung sounds are clear to auscultation heart regular rate rhythm, clear S1, S2 positive bowel sounds, abdomen is soft, nontender neuro patient is alert x3, no focal deficits <Angelica Ashby NP - Last Filed: 10/26/20 15:03> Objective Data Current Medications Generic Name Dose Route Start Last Admin Trade Name Freq PRN Reason Stop Dose Admin Acetaminophen 650 mg 10/22/20 03:02 10/26/20 14:13 Acetaminophen 325 Mg Tablet PO 650 mg Q6H PRN Administration Pain, Mild (Pain Scale 1-3) Albuterol Sulfate 2.5 mg 10/22/20 08:33 Albuterol Sulfate (0.083%) 2.5 Mg/3 Ml Vial.Neb INHALE TID PRN Shortness Of Breath Amlodipine Besylate 10 mg 10/25/20 09:00 10/26/20 07:43 Amlodipine Besylate 5 Mg Tablet PO 10 mg DAILY PHAN Administration Protocol Aspirin 81 mg 10/22/20 09:00 10/26/20 07:43 Aspirin Enteric Coated 81 Mg Tablet. PO 81 mg DAILY PHAN Administration Buprenorphine/Naloxone 1 film 10/22/20 09:00 10/26/20 07:44 Buprenorphine/Naloxone 8/2 Mg Film SUBLINGUAL 1 film BID PHAN Administration Clonidine HCl 0.2 mg 10/24/20 21:00 10/26/20 07:43 Clonidine Hcl 0.1 Mg Tablet PO 0.2 mg BID PHAN Administration Protocol Diltiazem HCl 180 mg 10/22/20 09:00 10/26/20 07:43 Diltiazem Hcl Cd 180 Mg Cap.Er.24h PO 180 mg DAILY PHAN Administration Protocol Docusate Sodium 100 mg 10/22/20 03:02 Docusate Sodium 100 Mg Capsule PO DAILY PRN Constipation Docusate Sodium 100 mg 10/22/20 08:33 Docusate Sodium 100 Mg Capsule PO BEDTIME PRN constipation Escitalopram Oxalate 5 mg 10/22/20 09:00 10/26/20 07:43 Escitalopram Oxalate 5 Mg Tablet PO 5 mg DAILY [facility]AN Administration Furosemide 40 mg 10/25/20 09:00 10/26/20 07:43 Furosemide 40 Mg Tablet PO 40 mg DAILY [facility]AN Administration Protocol Heparin Sodium (Porcine) 5,000 unit 10/22/20 04:00 10/26/20 04:50 Heparin Sodium,Porcine 5,000 Unit/Ml Vial SUBCUT 5,000 unit Q12H [facility]AN Administration Hydralazine HCl 25 mg 10/22/20 15:00 10/26/20 14:14 Hydralazine Hcl 25 Mg Tablet PO 25 mg TID PHAN Administration Protocol Insulin Glargine 24 unit 10/22/20 09:00 10/26/20 07:41 Insulin Glargine,Hum.Rec.Anlog 100 Unit/Ml 10 Ml Vial SUBCUT 24 unit DAILY [facility] Administration Insulin Human Lispro 0 unit 10/22/20 07:30 10/26/20 11:45 Insulin Lispro 100 Unit/Ml 3 Ml Vial SUBCUT Not Given QIDACHS [facility] Protocol Mirtazapine 15 mg 10/22/20 21:00 10/25/20 20:38 Mirtazapine 15 Mg Tablet PO 15 mg BEDTIME PHAN Administration Multivitamins/Vitamin C 1 tab 10/23/20 09:00 10/26/20 07:44 Multivitamin Tablet PO 1 tab DAILY [facility]AN Administration Nicotine 21 mg 10/22/20 14:30 10/26/20 07:42 Nicotine 21 Mg Patch.Td24 TRANSDERMA 21 mg DAILY PHAN Administration Nitroglycerin 0.1 mg 10/22/20 09:00 10/26/20 07:42 Nitroglycerin 0.1 Mg Patch.Td24 TRANSDERMA 0.1 mg DAILY PHAN Administration Protocol Olanzapine 7.5 mg 10/22/20 21:00 06/07/21 20:40 Olanzapine 7.5 Mg Tablet PO 7.5 mg BEDTIME PHAN Administration Ondansetron HCl 4 mg 10/22/20 03:02 10/26/20 02:24 Ondansetron Hcl 4 Mg/2 Ml Vial IVPUSH 4 mg Q8H PRN Administration Nausea and Vomiting Polyethylene Glycol 17 gm 10/22/20 09:00 10/26/20 07:44 Polyethylene Glycol 3350 17 Gm Powd.Pack PO 17 gm DAILY PHAN Administration Polyethylene Glycol 17 gm 10/23/20 09:00 Polyethylene Glycol 3350 17 Gm Powd.Pack PO Q2D PRN Constipation Tiotropium [place] 1 puff 10/22/20 09:00 10/26/20 07:33 Tiotropium [place] 18 Mcg Cap.W.Dev INHALE 1 puff RDAILY PHAN Administration Trazodone HCl 100 mg 10/22/20 21:00 10/25/20 22:22 Trazodone Hcl 100 Mg Tablet PO 100 mg BEDTIME MRX1 [facility]AN Administration <Angelica Ashby NP - Last Filed: 10/26/20 15:03> Labs CBC & Chem 7: : 10/23/20 06:57 10/26/20 06:29 <Angelica Ashby NP - Last Filed: 10/26/20 15:03> Assessment and Plan (1) Acute exacerbation of CHF (congestive heart failure): Status: Acute <Angelica Ashby NP - Last Filed: 10/26/20 15:03> Assessment and Plan: 65-year-old female who presents to the hospital with lower extremity swelling VANDANA d/t cardiorenal syndrome, baseline creatinine is 1.3, multiple differentialsATN, renal tubular ischemia, AGN, hypertensive renal injury not improving -Nephro following -Follow BMP -Hold ARB/ANIRUDH -serology, urine studies -if creatinine remains elevated recommendation from nephrology is renal biopsy Acute CHF exacerbation, acute diastolic heart failure precipitated by elevated BP edema improved -echo 10/22 reveiwed EF 65% -cardiology input noted -monitor weight, I/O -heart failure education -Monitor electrolytes and renal function Hypertension. uncontrolled -increase Norvasc and clonidine -continue diltiazem 180 daily and hydralazine 25 bid Diabetes -Lantus -SS, ADA 2gm na diet Opioid dependence/opioid withdrawal -Suboxone and further recommendation by addiction service Depression. -continue Olanzapine, remron and Celexa DVT prophylaxis with Heparin subQ Attending: Dr. Sykes Full code <Angelica Ashby NP - Last Filed: 10/26/20 15:03> I have seen and evaluated this patient. I have discussed the case and its management with the LOAD PLANNER and I agree with the findings and plan as documented in the LOAD PLANNER?s note. likely home tomorrow <Socratesюлия Sykes MD - Last Filed: 10/26/20 21:03>
--- NOTE | 2020-10-26 15:31 | MHC.CM.PN ---
NURSE AIRCRAFT POWERPLANT REPAIRER NOTE ELECTRONIC MEDICAL RECORD REVIEWED ALONG WITH CASE DISCUSSED ON MULTIPLE DISCIPLINARY ROUNDS PER DOCUMENTATION PATIENTS CREATININE IS STILL RISING CR 2.62 0N 10/25 AND PN 10/26 CR 2.98 RENAL CONTINUES TO FOLLOW PER DPOCUMENTATION ACUTE CHF EXACERBATION, ACUTE DIASTOLIC HEART FAILURE, ELEVATED BLOOD PRESSURE AND EDEMA OF THE LOWER LEGS ECH ON 10/22/20 EF 65% EVALUATED BY SKIDDER RUNNER, PLN CONTINUE TO MONITOR WEIGHT, INTAKE/OUTPUT, MONITOR ALL LABS AND FOLLOW RENAL FUNCTIONS. PATIENTS CARDIAC MEDICATIONS HAVE BEEN INCREASED DOSE NORVASC AND CLONIDINE, SHE CONTINUES ON DILTIAZEM AND HYDRALAZINE CONTINUES ON SUBOXONE AND WILL BE SEEN BY COMPLIANCE MGR NURSE BEFORE D/C. ATTORNEY GENERAL TO CONTINUE TO FOLLOW DISCHARGE PLAN RESUMPTION OF [facility] PREVIOUS ATTORNEY GENERAL NOTE 10/25/20
[2020-10-26 17:04] LABS: Glucose, Whole Blood 166 mg/dL (60-115)
[2020-10-26] MEDS: Insulin Lispro 100 UNIT/ML 3 ML VIAL SUBCUT (17:43)
--- NOTE | 2020-10-26 18:53 | P.PNNP_ITS ---
Subjective Subjective Date of Service: 10/26/20 Interval history: Seen and examined, events noted Physical Exam Vital Signs: Vital Signs: Last Vital Signs Temp 97.2 F 10/26/20 15:44 Pulse 67 10/26/20 15:44 Resp 17 10/26/20 15:44 BP 155/72 H 10/26/20 15:44 Pulse Ox 98 10/26/20 15:44 Body Mass Index 36.4 Const: General: cooperative; No acute distress Eyes: EOM: EOMs intact bilaterally Neck: Neck: Yes supple Resp: Auscultation: clear to auscultation bilaterally Cardio: Jugular venous distension: no JVD GI: Palpation (GI): Soft to palpation Neuro: General: moves all extremities Objective Data Labs CBC & Chem 7: 10/23/20 06:57 10/26/20 06:29 Labs: Laboratory Results - last 24 hr 10/25/20 10/26/20 10/26/20 20:07 06:29 07:16 Sodium 140 Potassium 3.7 Chloride 102 Carbon Dioxide 29 Anion Gap 13 BUN 32 H Creatinine 2.98 H Estim Creat Clear Calc 19.1 Estimated GFR 16 POC Glucose 151 H 126 H Random Glucose 135 H Calcium 7.9 L Urine Color Urine Appearance Urine pH Ur Specific [place] Urine Protein Urine Glucose (UA) Urine Ketones Urine Blood Urine Nitrite Ur Leukocyte Esterase Urine RBC Urine WBC Ur Squamous Epith Cells Urine Bacteria Urine Eosinophils % U Random Total Protein Urine Creatinine 10/26/20 10/26/20 10/26/20 11:21 16:41 Unknown Sodium Potassium Chloride Carbon Dioxide Anion Gap BUN Creatinine Estim Creat Clear Calc Estimated GFR POC Glucose 147 H 166 H Random Glucose Calcium Urine Color YELLOW Urine Appearance CLEAR Urine pH 7.0 Ur Specific [place] 1.010 Urine Protein 3+ H Urine Glucose (UA) 100 H Urine Ketones NEG Urine Blood NEG Urine Nitrite NEG Ur Leukocyte Esterase NEG Urine RBC 0-2 Urine WBC 1-4 Ur Squamous Epith Cells 2+ Urine Bacteria NONE Urine Eosinophils % U Random Total Protein Urine Creatinine 10/26/20 10/26/20 Unknown Unknown Sodium Potassium Chloride Carbon Dioxide Anion Gap BUN Creatinine Estim Creat Clear Calc Estimated GFR POC Glucose Random Glucose Calcium Urine Color Urine Appearance Urine pH Ur Specific [place] Urine Protein Urine Glucose (UA) Urine Ketones Urine Blood Urine Nitrite Ur Leukocyte Esterase Urine RBC Urine WBC Ur Squamous Epith Cells Urine Bacteria Urine Eosinophils % 1.1 U Random Total Protein 399 H Urine Creatinine 74.08 Assessment & Plan Assessment and plan (1) Acute renal failure: Status: Acute Assessment and Plan: 1. 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 dCHF w DDysfunc and severe HTN w vol Overload: improved with diuresis and BP control 4. NRProt: d/t DN vs other Glom injury; but accuracy of Up/Cr is less in setting of VANDANA REC: reveiw prior CT and doppler with rad as will likely need additional renal vasc imaging---MRA as would like to avoid IV Contrast; check sero/urine studies; if Scr cont to incr will hold asa and consider kidney Bx early next week if Scr does not begin to turn around will follow gee with team Time Spent With Patient Time: Total time spent is greater than 50% in coordination of care (as documented) at patient's floor/unit and/or counseling patient: Procedures Date of Service Date of Service: 10/26/20
[2020-10-26] MEDS: traZODone HCL 100 MG TABLET PO (19:55)
[2020-10-26] MEDS: OLANZapine 7.5 MG TABLET PO (19:57)
[2020-10-26] MEDS: Mirtazapine 15 MG TABLET PO (19:57)
[2020-10-26 20:21] LABS: Glucose, Whole Blood 145 mg/dL (60-115)
[2020-10-27] VITALS (13 sets, daily range): BP systolic 117–180; BP diastolic 63–73; PULSE 60–85; RESP 18–20; TEMP 36.4–36.8; O2SAT 96–99
[2020-10-27] MEDS: Acetaminophen 325 MG TABLET 650 MG PO ×3 (03:00→17:52)
[2020-10-27] MEDS: Heparin Sodium,Porcine 5,000 UNIT/ML VIAL 5000 UNIT SUBCUT ×2 (05:58→16:23)
[2020-10-27 07:33] LABS: Glucose, Whole Blood 185 mg/dL (60-115)
[2020-10-27] MEDS: Insulin Lispro 100 UNIT/ML 3 ML VIAL SUBCUT ×3 (08:00→20:40)
[2020-10-27] MEDS: amLODIPine Besylate 5 MG TABLET 10 MG PO (08:01)
[2020-10-27] MEDS: Multivitamin TABLET 1 TAB PO (08:01)
[2020-10-27] MEDS: hydrALAZINE HCl 25 MG TABLET PO ×3 (08:01→20:34)
[2020-10-27] MEDS: dilTIAZem HCL CD 180 MG CAP.ER.24H PO (08:02)
[2020-10-27] MEDS: Furosemide 40 MG TABLET PO (08:02)
[2020-10-27] MEDS: Escitalopram Oxalate 5 MG TABLET PO (08:02)
[2020-10-27] MEDS: Insulin Glargine,Hum.rec.anlog 100 UNIT/ML 10 ML VIAL 24 UNIT SUBCUT (08:03)
[2020-10-27] MEDS: polyethylene glycoL 3350 17 GM POWD.PACK PO (08:03)
[2020-10-27] MEDS: Buprenorphine/Naloxone 8/2 mg FILM 1 FILM SUBLINGUAL ×2 (08:03→20:34)
[2020-10-27] MEDS: Nicotine 21 MG PATCH.TD24 TRANSDERMA (08:07)
[2020-10-27] MEDS: cloNIDine HCL 0.2 MG TABLET PO ×2 (08:07→20:33)
[2020-10-27] MEDS: Nitroglycerin 0.1 MG PATCH.TD24 TRANSDERMA (08:08)
[2020-10-27 10:00] LABS: HBc Num1 3.68 S/CO (0.00-0.79); HBsAGNum1 0.18 S/CO (0.00-0.99); Hepatitis B Surface Antigen Negative (Negative); ~Hepatitis C Antibody Nonreactive (Nonreactive)
[2020-10-27 10:43] LABS: Anion Gap 12 (12-20); Blood Urea Nitrogen 42 mg/dL (9-16); Calcium 8.1 mg/dL (8.4-10.2); Carbon Dioxide 29 mmol/L (22-29); Chloride 101 mmol/L (96-108); Creatinine Clr Calc Pharmacy 18.5; Estimated Glomerular Filt Rate 15; Glucose Random 165 mg/dL (60-115); Potassium 3.9 mmol/L (3.3-5.1); Sodium 138 mmol/L (135-145)
[2020-10-27 11:13] LABS: Glucose, Whole Blood 140 mg/dL (60-115)
[2020-10-27 11:37] LABS: Complement C3 69 mg/dL (83-193)
[2020-10-27 12:08] LABS: HBS Num1 12.88 mIU/mL (0-7.99); ~Hepatitis B Surface Antibody REACTIVE (Nonreactive)
[2020-10-27 12:22] LABS: HBS Num2 12.09 mIU/mL (0-7.99); HBc Num2 3.68 S/CO; HBc Num3 3.78 S/CO; Hepatitis B Core Antibody Reactive (Nonreactive)
[2020-10-27 12:23] LABS: HBS Num3 12.88 mIU/mL (0-7.99)
--- NOTE | 2020-10-27 15:40 | HO.PM.IMPN ---
Subjective Subjective Date of Service: 10/27/20 <Angelica Ashby NP - Last Filed: 10/27/20 16:12> 10/27/20 <Socrates Sykes MD - Last Filed: 10/27/20 16:15> Interval History: Follow-up heart failure and renal failure Feeling fine, sitting up in a chair, no shortness of breath <Angelica Ashby NP - Last Filed: 10/27/20 16:12> Physical Exam Vital Signs: Vital Signs: Last Vital Signs Temp 98.3 F 10/27/20 11:28 Pulse 65 10/27/20 14:48 Resp 20 10/27/20 11:28 BP 145/65 H 10/27/20 14:48 Pulse Ox 99 10/27/20 11:28 Body Mass Index 36.4 <nAgelica Ashby NP - Last Filed: 10/27/20 16:12> Appearing in no acute distress lung sounds are clear to auscultation heart regular rate rhythm, clear S1, S2 positive bowel sounds, abdomen is soft, nontender neuro patient is alert x3, no focal deficits <Angelica Ashby NP - Last Filed: 10/27/20 16:12> Objective Data Current Medications Generic Name Dose Route Start Last Admin Trade Name Freq PRN Reason Stop Dose Admin Acetaminophen 650 mg 10/22/20 03:02 10/27/20 12:23 Acetaminophen 325 Mg Tablet PO 650 mg Q6H PRN Administration Pain, Mild (Pain Scale 1-3) Albuterol Sulfate 2.5 mg 10/22/20 08:33 Albuterol Sulfate (0.083%) 2.5 Mg/3 Ml Vial.Neb INHALE TID PRN Shortness Of Breath Amlodipine Besylate 10 mg 10/25/20 09:00 10/27/20 08:01 Amlodipine Besylate 5 Mg Tablet PO 10 mg DAILY PHAN Administration Protocol Buprenorphine/Naloxone 1 film 10/22/20 09:00 10/27/20 08:03 Buprenorphine/Naloxone 8/2 Mg Film SUBLINGUAL 1 film BID PHAN Administration Clonidine HCl 0.2 mg 10/27/20 09:00 10/27/20 08:07 Clonidine Hcl 0.2 Mg Tablet PO 0.2 mg BID PHAN Administration Protocol Diltiazem HCl 180 mg 10/22/20 09:00 10/27/20 08:02 Diltiazem Hcl Cd 180 Mg Cap.Er.24h PO 180 mg DAILY PHAN Administration Protocol Docusate Sodium 100 mg 10/22/20 03:02 Docusate Sodium 100 Mg Capsule PO DAILY PRN Constipation Docusate Sodium 100 mg 10/22/20 08:33 Docusate Sodium 100 Mg Capsule PO BEDTIME PRN constipation Escitalopram Oxalate 5 mg 10/22/20 09:00 10/27/20 08:02 Escitalopram Oxalate 5 Mg Tablet PO 5 mg DAILY PHAN Administration Furosemide 40 mg 10/25/20 09:00 10/27/20 08:02 Furosemide 40 Mg Tablet PO 40 mg DAILY PHAN Administration Protocol Heparin Sodium (Porcine) 5,000 unit 10/22/20 04:00 10/27/20 05:58 Heparin Sodium,Porcine 5,000 Unit/Ml Vial SUBCUT 5,000 unit Q12H PHAN Administration Hydralazine HCl 25 mg 10/22/20 15:00 10/27/20 14:48 Hydralazine Hcl 25 Mg Tablet PO 25 mg TID PHAN Administration Protocol Insulin Glargine 24 unit 10/22/20 09:00 10/27/20 08:03 Insulin Glargine,Hum.Rec.Anlog 100 Unit/Ml 10 Ml Vial SUBCUT 24 unit DAILY PHAN Administration Insulin Human Lispro 0 unit 10/22/20 07:30 10/27/20 12:28 Insulin Lispro 100 Unit/Ml 3 Ml Vial SUBCUT Not Given QIDACHS [facility] Protocol Mirtazapine 15 mg 10/22/20 21:00 10/26/20 19:57 Mirtazapine 15 Mg Tablet PO 15 mg BEDTIME PHAN Administration Multivitamins/Vitamin C 1 tab 10/23/20 09:00 10/27/20 08:01 Multivitamin Tablet PO 1 tab DAILY PHAN Administration Nicotine 21 mg 10/22/20 14:30 10/27/20 08:07 Nicotine 21 Mg Patch.Td24 TRANSDERMA 21 mg DAILY PHAN Administration Nitroglycerin 0.1 mg 10/22/20 09:00 10/27/20 08:08 Nitroglycerin 0.1 Mg Patch.Td24 TRANSDERMA 0.1 mg DAILY PHAN Administration Protocol Olanzapine 7.5 mg 10/22/20 21:00 10/26/20 19:57 Olanzapine 7.5 Mg Tablet PO 7.5 mg BEDTIME PHAN Administration Ondansetron HCl 4 mg 10/22/20 03:02 10/26/20 02:24 Ondansetron Hcl 4 Mg/2 Ml Vial IVPUSH 4 mg Q8H PRN Administration Nausea and Vomiting Polyethylene Glycol 17 gm 10/22/20 09:00 10/27/20 08:03 Polyethylene Glycol 3350 17 Gm Powd.Pack PO 17 gm DAILY PHAN Administration Polyethylene Glycol 17 gm 10/23/20 09:00 Polyethylene Glycol 3350 17 Gm Powd.Pack PO Q2D PRN Constipation Tiotropium [place] 1 puff 10/22/20 09:00 10/27/20 08:00 Tiotropium [place] 18 Mcg Cap.W.Dev INHALE 1 puff RDAILY PHAN Administration Trazodone HCl 100 mg 10/22/20 21:00 10/26/20 19:55 Trazodone Hcl 100 Mg Tablet PO 100 mg BEDTIME MRX1 PHAN Administration <Angelica Ashby NP - Last Filed: 10/27/20 16:12> Labs CBC & Chem 7: : 10/23/20 06:57 10/27/20 10:12 <Angelica Ashby NP - Last Filed: 10/27/20 16:12> Assessment and Plan (1) Acute exacerbation of CHF (congestive heart failure): Status: Acute <Angelica Ashby NP - Last Filed: 10/27/20 16:12> Assessment and Plan: 65-year-old female who presents to the hospital with lower extremity swelling VANDANA d/t cardiorenal syndrome, baseline creatinine is 1.3, worse today at 3.08 multiple differentials ATN, renal tubular ischemia, AGN, hypertensive renal injury not improving -Nephro following -Follow BMP -Hold ARB/ANIRUDH -stop lasix -serology, urine studies -if creatinine remains elevated recommendation from nephrology is renal biopsy Acute CHF exacerbation, acute diastolic heart failure precipitated by elevated BP edema improved -echo 10/22 reveiwed EF 65% -cardiology input noted -monitor weight, I/O -heart failure education -Monitor electrolytes and renal function Hypertension. uncontrolled -increase Norvasc and clonidine -continue diltiazem 180 daily and hydralazine 25 bid Diabetes -Lantus -SS, ADA 2gm na diet Opioid dependence/opioid withdrawal -Suboxone and further recommendation by addiction service Depression. -continue Olanzapine, remeron and Celexa DVT prophylaxis with Heparin subQ Attending: Dr. Sykes Full code <Angelica Ashby NP - Last Filed: 10/27/20 16:12> (2) Opioid withdrawal: Status: Acute <Angelica Ashby NP - Last Filed: 10/27/20 16:12> Assessment and Plan: Addendum to documentation by midlevel I saw and examined the patient and participated in the george portion of the E/M service. I discussed finding and management with JAVA SECURITY ENGINEER, and I agree with above. Creatinine is slightly higher, and appear euvolemic at this time, looks like new baseline. I think we can observe and reassess tomorrow <Socrates Sykes MD - Last Filed: 10/27/20 16:15>
--- NOTE | 2020-10-27 15:52 | MHC.CM.PN ---
Addendum entered by Michelle Shabazz RN 10/27/20 15:55: CLARIFICATION CREATININE 3.08 10/27/20 Original Note: EMR REVIEWED, PT CREATININE 3.09, PER NEPHROLOGY IF CREATININE REMAINS ELEVATED BIOPSY IS RECOMMENDED, NO PLAN FOR D/C TODAY, CM WILL CONT TO FOLLOW D/C NEEDS.
[2020-10-27 16:13] LABS: Glucose, Whole Blood 155 mg/dL (60-115)
[2020-10-27 20:21] LABS: Glucose, Whole Blood 214 mg/dL (60-115)
[2020-10-27] MEDS: OLANZapine 7.5 MG TABLET PO (20:33)
[2020-10-27] MEDS: traZODone HCL 100 MG TABLET PO (20:34)
[2020-10-27] MEDS: Mirtazapine 15 MG TABLET PO (20:34)
--- NOTE | 2020-10-27 20:37 | PM.PNNEP ---
Subjective Subjective Date of Service: 10/27/20 Interval history: seen and examined, events noted Physical Exam Vital Signs: Vital Signs: Last Vital Signs Temp 97.5 F 10/27/20 19:53 Pulse 70 10/27/20 20:34 Resp 18 10/27/20 19:53 BP 146/65 H 10/27/20 20:34 Pulse Ox 97 10/27/20 19:53 Body Mass Index 36.4 Const: General: cooperative; No acute distress Eyes: EOM: EOMs intact bilaterally Neck: Neck: Yes supple Resp: Auscultation: clear to auscultation bilaterally Cardio: Jugular venous distension: no JVD GI: Palpation (GI): Soft to palpation Neuro: General: moves all extremities Objective Data Labs CBC & Chem 7: 10/23/20 06:57 10/27/20 10:12 Labs: Laboratory Results - last 24 hr 10/25/20 10/25/20 10/27/20 19:43 19:44 07:18 Sodium Potassium Chloride Carbon Dioxide Anion Gap BUN Creatinine Estim Creat Clear Calc Estimated GFR POC Glucose 185 H Random Glucose Calcium Complement C3 69 L Complement C4 16 Hep Bs Antigen Negative Hep Bs Antibody REACTIVE Hep B Core Total Ab Reactive Hep B Core IgM Ab TNP Hepatitis C Ab (EIA) Nonreactive 10/27/20 10/27/20 10/27/20 10:12 11:03 16:06 Sodium 138 Potassium 3.9 Chloride 101 Carbon Dioxide 29 Anion Gap 12 BUN 42 H Creatinine 3.08 H Estim Creat Clear Calc 18.5 Estimated GFR 15 POC Glucose 140 H 155 H Random Glucose 165 H Calcium 8.1 L Complement C3 Complement C4 Hep Bs Antigen Hep Bs Antibody Hep B Core Total Ab Hep B Core IgM Ab Hepatitis C Ab (EIA) 10/27/20 20:12 Sodium Potassium Chloride Carbon Dioxide Anion Gap BUN Creatinine Estim Creat Clear Calc Estimated GFR POC Glucose 214 H Random Glucose Calcium Complement C3 Complement C4 Hep Bs Antigen Hep Bs Antibody Hep B Core Total Ab Hep B Core IgM Ab Hepatitis C Ab (EIA) Assessment & Plan Assessment and plan (1) Acute renal failure: Status: Acute Assessment and Plan: 1. 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 dCHF w DDysfunc and severe HTN w vol Overload: improved with diuresis and BP control 4. NRProt: d/t DN vs other Glom injury; but accuracy of Up/Cr is less in setting of VANDANA 5. Incr edema: d/t AKIand Nephrotic Syndrome and ques norvasc REC: hold asprin and possible kdiney Bx on Sunday; check sero/urine studies; if edema worses then deccrease morvasc 5 and start diuretic will follow gee with team Time Spent With Patient Time: Total time spent is greater than 50% in coordination of care (as documented) at patient's floor/unit and/or counseling patient: Procedures Date of Service Date of Service: 10/27/20
[2020-10-28] VITALS (10 sets, daily range): BP systolic 118–159; BP diastolic 58–75; PULSE 60–80; RESP 15–18; TEMP 36.4–37; O2SAT 94–100
[2020-10-28] MEDS: Acetaminophen 325 MG TABLET 650 MG PO ×3 (00:25→21:04)
[2020-10-28] MEDS: Heparin Sodium,Porcine 5,000 UNIT/ML VIAL 5000 UNIT SUBCUT ×2 (05:32→16:13)
[2020-10-28 07:48] LABS: Glucose, Whole Blood 174 mg/dL (60-115)
[2020-10-28] MEDS: Insulin Lispro 100 UNIT/ML 3 ML VIAL SUBCUT ×3 (07:58→16:20)
[2020-10-28] MEDS: Escitalopram Oxalate 5 MG TABLET PO (07:59)
[2020-10-28] MEDS: hydrALAZINE HCl 25 MG TABLET PO ×3 (07:59→21:00)
[2020-10-28] MEDS: cloNIDine HCL 0.2 MG TABLET PO ×2 (07:59→20:59)
[2020-10-28] MEDS: Nicotine 21 MG PATCH.TD24 TRANSDERMA (08:00)
[2020-10-28] MEDS: amLODIPine Besylate 5 MG TABLET 10 MG PO (08:00)
[2020-10-28] MEDS: dilTIAZem HCL CD 180 MG CAP.ER.24H PO (08:00)
[2020-10-28] MEDS: Nitroglycerin 0.1 MG PATCH.TD24 TRANSDERMA (08:00)
[2020-10-28] MEDS: Multivitamin TABLET 1 TAB PO (08:00)
[2020-10-28] MEDS: Buprenorphine/Naloxone 8/2 mg FILM 1 FILM SUBLINGUAL ×2 (08:01→21:00)
[2020-10-28] MEDS: polyethylene glycoL 3350 17 GM POWD.PACK PO (08:01)
[2020-10-28] MEDS: Insulin Glargine,Hum.rec.anlog 100 UNIT/ML 10 ML VIAL 24 UNIT SUBCUT (08:50)
[2020-10-28 09:03] LABS: Hematocrit 33.9 % (37-47); Hemoglobin 10.9 g/dl (12.0-16.0); Mean Corpuscular HGB Conc 32.2 g/dl (31.0-35.0); Mean Corpuscular Hemoglobin 29.6 pg (27.0-33.0); Mean Corpuscular Volume 92.1 fL (80-98); Mean Platelet Volume 10.5 fL (9.4-12.3); Platelet Count 206 X10*3/uL (160-400); Red Blood Count 3.68 X10*6/uL (4.20-5.50); Red Cell Distribution Width 14.2 % (11.0-16.0); White Blood Count 7.8 X10*3/uL (4.8-10.8)
[2020-10-28 09:24] LABS: Anion Gap 15 (12-20); Blood Urea Nitrogen 50 mg/dL (9-16); Calcium 8.4 mg/dL (8.4-10.2); Carbon Dioxide 26 mmol/L (22-29); Chloride 101 mmol/L (96-108); Creatinine Clr Calc Pharmacy 17.3; Estimated Glomerular Filt Rate 14; Glucose Random 223 mg/dL (60-115); Potassium 4.2 mmol/L (3.3-5.1); Sodium 138 mmol/L (135-145)
[2020-10-28 11:07] LABS: Glucose, Whole Blood 156 mg/dL (60-115)
[2020-10-28] MEDS: Docusate Sodium 100 MG CAPSULE PO (11:27)
[2020-10-28 15:11] LABS: IgA 271 mg/dL (70-320); IgG 646 mg/dL (600-1540); IgM 35 mg/dL (50-300)
--- NOTE | 2020-10-28 16:02 | P.PNIM_ITS ---
Subjective Subjective Date of Service: 10/28/20 Interval History: seen and examined this morning follow up for chf, vandana denies sob, no complaints this am Review of Systems Review of Systems: Yes all other systems are reviewed and are negative Constitutional Constitutional: Denies chills and Denies fever(s) Cardiovascular Cardiovascular: Denies chest pain Respiratory Respiratory: Denies cough Gastrointestinal Gastrointestinal: Denies abdominal pain Physical Exam Vital Signs: Vital Signs: Last Vital Signs Temp 98.4 F 10/28/20 15:21 Pulse 60 10/28/20 15:21 Resp 15 10/28/20 15:21 BP 132/60 10/28/20 15:21 Pulse Ox 100 10/28/20 15:21 Body Mass Index 36.4 Const: General: comfortable, no acute distress, alert and awake Nutritional Appearance: well nourished HENMT: Head: Yes normocephalic and Yes atraumatic Eyes: Sclerae: sclerae normal Chest: Chest palpation & inspection: normal inspection of the chest Resp: Effort & Inspection: normal respiratory effort and no respiratory distress Cardio: Rate: regular rate Rhythm: regular rhythm GI: Palpation (GI): Soft to palpation and nontender Neuro: Cranial nerves: Yes CN's II-XII intact bilaterally and Yes Bilaterally intact EOM present Extrem: Other: b/l leg edema Objective Data Current Medications Generic Name Dose Route Start Last Admin Trade Name Freq PRN Reason Stop Dose Admin Acetaminophen 650 mg 10/22/20 03:02 10/28/20 11:26 Acetaminophen 325 Mg Tablet PO 650 mg Q6H PRN Administration Pain, Mild (Pain Scale 1-3) Albuterol Sulfate 2.5 mg 10/22/20 08:33 Albuterol Sulfate (0.083%) 2.5 Mg/3 Ml Vial.Neb INHALE TID PRN Shortness Of Breath Amlodipine Besylate 10 mg 10/25/20 09:00 10/28/20 08:00 Amlodipine Besylate 5 Mg Tablet PO 10 mg DAILY PHAN Administration Protocol Buprenorphine/Naloxone 1 film 10/22/20 09:00 10/28/20 08:01 Buprenorphine/Naloxone 8/2 Mg Film SUBLINGUAL 1 film BID PHAN Administration Clonidine HCl 0.2 mg 10/27/20 09:00 10/28/20 07:59 Clonidine Hcl 0.2 Mg Tablet PO 0.2 mg BID PHAN Administration Protocol Diltiazem HCl 180 mg 10/22/20 09:00 10/28/20 08:00 Diltiazem Hcl Cd 180 Mg Cap.Er.24h PO 180 mg DAILY PHAN Administration Protocol Docusate Sodium 100 mg 10/22/20 03:02 10/28/20 11:27 Docusate Sodium 100 Mg Capsule PO 100 mg DAILY PRN Administration Constipation Docusate Sodium 100 mg 10/22/20 08:33 Docusate Sodium 100 Mg Capsule PO BEDTIME PRN constipation Escitalopram Oxalate 5 mg 10/22/20 09:00 10/28/20 07:59 Escitalopram Oxalate 5 Mg Tablet PO 5 mg DAILY PHAN Administration Heparin Sodium (Porcine) 5,000 unit 10/22/20 04:00 10/28/20 05:32 Heparin Sodium,Porcine 5,000 Unit/Ml Vial SUBCUT 5,000 unit Q12H PHAN Administration Hydralazine HCl 25 mg 10/22/20 15:00 10/28/20 14:36 Hydralazine Hcl 25 Mg Tablet PO 25 mg TID PHAN Administration Protocol Insulin Glargine 24 unit 10/22/20 09:00 10/28/20 08:50 Insulin Glargine,Hum.Rec.Anlog 100 Unit/Ml 10 Ml Vial SUBCUT 24 unit DAILY PHAN Administration Insulin Human Lispro 0 unit 10/22/20 07:30 10/28/20 11:23 Insulin Lispro 100 Unit/Ml 3 Ml Vial SUBCUT 2 unit QIDACHS PHAN Administration Protocol Mirtazapine 15 mg 10/22/20 21:00 10/27/20 20:34 Mirtazapine 15 Mg Tablet PO 15 mg BEDTIME PHAN Administration Multivitamins/Vitamin C 1 tab 10/23/20 09:00 10/28/20 08:00 Multivitamin Tablet PO 1 tab DAILY PHAN Administration Nicotine 21 mg 10/22/20 14:30 10/28/20 08:00 Nicotine 21 Mg Patch.Td24 TRANSDERMA 21 mg DAILY PHAN Administration Nitroglycerin 0.1 mg 10/22/20 09:00 10/28/20 08:00 Nitroglycerin 0.1 Mg Patch.Td24 TRANSDERMA 0.1 mg DAILY PHAN Administration Protocol Olanzapine 7.5 mg 10/22/20 21:00 10/27/20 20:33 Olanzapine 7.5 Mg Tablet PO 7.5 mg BEDTIME PHAN Administration Ondansetron HCl 4 mg 10/22/20 03:02 10/26/20 02:24 Ondansetron Hcl 4 Mg/2 Ml Vial IVPUSH 4 mg Q8H PRN Administration Nausea and Vomiting Polyethylene Glycol 17 gm 10/22/20 09:00 10/28/20 08:01 Polyethylene Glycol 3350 17 Gm Powd.Pack PO 17 gm DAILY PHAN Administration Polyethylene Glycol 17 gm 10/23/20 09:00 Polyethylene Glycol 3350 17 Gm Powd.Pack PO Q2D PRN Constipation Tiotropium [place] 1 puff 10/22/20 09:00 10/28/20 07:42 Tiotropium [place] 18 Mcg Cap.W.Dev INHALE 1 puff RDAILY PHAN Administration Trazodone HCl 100 mg 10/22/20 21:00 10/27/20 23:03 Trazodone Hcl 100 Mg Tablet PO Not Given BEDTIME MRX1 PHAN Labs CBC & Chem 7: 10/28/20 08:52 10/28/20 08:52 Assessment and Plan (1) Acute exacerbation of CHF (congestive heart failure): Status: Acute (2) Acute renal failure: Status: Acute Assessment and Plan: This is a 65-year-old female who presents to the hospital with lower extremity swelling found to have CHF, now with VANDANA on CKD VANDANA on CKD3 d/t cardiorenal syndrome, baseline creatinine is 1.3, worse today at 3.29 multiple differentials ATN, renal tubular ischemia, AGN, hypertensive renal injury -given lack of improvement in renal function, nephrology has recommended kidney biopsy. -NPO at midnight, hold am dose of SQ heparin -Nephro following -Follow BMP -Hold ARB/ANIRUDH, lasix Acute CHF exacerbation, acute diastolic heart failure precipitated by elevated BP symptoms resolved. -echo 10/22 reveiwed EF 65% -cardiology input noted -monitor weight, I/O, heart failure education -Monitor electrolytes and renal function -nephrology rec to add torsemide 40 QD on discharge, lasix on hold for worsening renal function Hypertension. under better control -continue Norvasc (increased from 5 to 10 mg), clonidine (increased from 0.1 mg to 0.2mg bid), nitro-dur patch, diltiazem 180 daily, hydralazine 25 TID (increased from BID) -losartan d/c due to VANDANA Diabetes -Mehrantus -SS, ADA 2gm na diet Opioid dependence/opioid withdrawal -Suboxone and further recommendation by addiction service tobacco dependence -NRT Mood -continue Olanzapine, remeron and Celexa, trazodone DVT prophylaxis with Heparin subQ Attending: Dr. Sykes dispo: home when medically stable
[2020-10-28 16:17] LABS: Glucose, Whole Blood 167 mg/dL (60-115)
--- NOTE | 2020-10-28 18:07 | PM.PNNEP ---
Subjective Subjective Date of Service: 10/28/20 Interval history: seen and examined, events noted Physical Exam Vital Signs: Vital Signs: Last Vital Signs Temp 98.4 F 10/28/20 15:21 Pulse 60 10/28/20 15:21 Resp 15 10/28/20 15:21 BP 132/60 10/28/20 15:21 Pulse Ox 100 10/28/20 15:21 Body Mass Index 36.4 Const: General: cooperative; No acute distress Eyes: EOM: EOMs intact bilaterally Neck: Neck: Yes supple Resp: Auscultation: clear to auscultation bilaterally Cardio: Jugular venous distension: no JVD GI: Palpation (GI): Soft to palpation Neuro: General: moves all extremities Objective Data Labs CBC & Chem 7: 10/28/20 08:52 10/28/20 08:52 Labs: Laboratory Results - last 24 hr 10/25/20 10/27/20 10/28/20 19:43 20:12 07:18 WBC RBC Hgb Hct MCV MCH MCHC RDW Plt Count MPV Absolute Nucleated RBC Nucleated RBC % (auto) Sodium Potassium Chloride Carbon Dioxide Anion Gap BUN Creatinine Estim Creat Clear Calc Estimated GFR POC Glucose 214 H 174 H Random Glucose Calcium IgG Total 646 IgA Total 271 IgM 35 L NEGRO Interpretation SEE NOTE 10/28/20 10/28/20 10/28/20 08:52 08:52 11:03 WBC 7.8 RBC 3.68 L Hgb 10.9 L Hct 33.9 L MCV 92.1 MCH 29.6 MCHC 32.2 RDW 14.2 Plt Count 206 D MPV 10.5 Absolute Nucleated RBC 0.000 Nucleated RBC % (auto) 0.0 Sodium 138 Potassium 4.2 Chloride 101 Carbon Dioxide 26 Anion Gap 15 BUN 50 H Creatinine 3.29 H Estim Creat Clear Calc 17.3 Estimated GFR 14 POC Glucose 156 H Random Glucose 223 H D Calcium 8.4 IgG Total IgA Total IgM NEGRO Interpretation 10/28/20 16:11 WBC RBC Hgb Hct MCV MCH MCHC RDW Plt Count MPV Absolute Nucleated RBC Nucleated RBC % (auto) Sodium Potassium Chloride Carbon Dioxide Anion Gap BUN Creatinine Estim Creat Clear Calc Estimated GFR POC Glucose 167 H Random Glucose Calcium IgG Total IgA Total IgM NEGRO Interpretation Assessment & Plan Assessment and plan (1) Acute renal failure: Status: Acute Assessment and Plan: 1. 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 dCHF w DDysfunc and severe HTN w vol Overload: improved with diuresis and BP control 4. NRProt: d/t DN vs other Glom injury; but accuracy of Up/Cr is less in setting of VANDANA 5. Incr edema: d/t AKIand Nephrotic Syndrome and ques norvasc REC: cont to hold asprin and possible kdiney Bx on Sunday vs if IR feels its safe to do Sunday; check sero/urine studies; if edema worses then deccrease morvasc 5 and start diuretic will follow gee with team Time Spent With Patient Time: Total time spent is greater than 50% in coordination of care (as documented) at patient's floor/unit and/or counseling patient: Procedures Date of Service Date of Service: 10/28/20
[2020-10-28 20:15] LABS: Glucose, Whole Blood 100 mg/dL (60-115)
[2020-10-28] MEDS: OLANZapine 7.5 MG TABLET PO (20:59)
[2020-10-28] MEDS: Mirtazapine 15 MG TABLET PO (20:59)
[2020-10-28] MEDS: traZODone HCL 100 MG TABLET PO (20:59)
[2020-10-29] VITALS (10 sets, daily range): BP systolic 119–177; BP diastolic 50–80; PULSE 60–66; RESP 16–20; TEMP 36.3–37; O2SAT 96–98; BMI 40.4
[2020-10-29 07:05] LABS: INTERNATIONAL NORM RATIO 0.9 (0.9-1.1); Prothrombin Time 10.5 SEC (10.8-13.0)
[2020-10-29 07:09] LABS: Hemoglobin 10.5 g/dl (12.0-16.0); Mean Corpuscular HGB Conc 31.8 g/dl (31.0-35.0); Mean Corpuscular Volume 91.2 fL (80-98); Mean Platelet Volume 10.7 fL (9.4-12.3); Platelet Count 221 X10*3/uL (160-400); Red Blood Count 3.62 X10*6/uL (4.20-5.50); Red Cell Distribution Width 14.1 % (11.0-16.0); White Blood Count 7.3 X10*3/uL (4.8-10.8)
[2020-10-29 07:30] LABS: Anion Gap 13 (12-20); Blood Urea Nitrogen 51 mg/dL (9-16); Carbon Dioxide 28 mmol/L (22-29); Chloride 104 mmol/L (96-108); Creatinine Clr Calc Pharmacy 19.7; Estimated Glomerular Filt Rate 15; Glucose Random 153 mg/dL (60-115); Potassium 4.5 mmol/L (3.3-5.1); Sodium 140 mmol/L (135-145)
[2020-10-29 07:33] LABS: Glucose, Whole Blood 118 mg/dL (60-115)
[2020-10-29] MEDS: amLODIPine Besylate 5 MG TABLET 10 MG PO (09:23)
[2020-10-29] MEDS: Escitalopram Oxalate 5 MG TABLET PO (09:23)
[2020-10-29] MEDS: Multivitamin TABLET 1 TAB PO (09:23)
[2020-10-29] MEDS: hydrALAZINE HCl 25 MG TABLET PO ×3 (09:23→21:15)
[2020-10-29] MEDS: Acetaminophen 325 MG TABLET 650 MG PO ×3 (09:23→21:14)
[2020-10-29] MEDS: dilTIAZem HCL CD 180 MG CAP.ER.24H PO (09:24)
[2020-10-29] MEDS: cloNIDine HCL 0.2 MG TABLET PO ×2 (09:24→21:15)
[2020-10-29] MEDS: Buprenorphine/Naloxone 8/2 mg FILM 1 FILM SUBLINGUAL ×2 (09:24→21:14)
[2020-10-29] MEDS: Nicotine 21 MG PATCH.TD24 TRANSDERMA (10:20)
[2020-10-29] MEDS: Lidocaine HCl 1 % MPF 5 ML VIAL SUBCUT ×2 (12:50→12:51)
[2020-10-29 12:59] LABS: Glucose, Whole Blood 105 mg/dL (60-115)
[2020-10-29 13:27] LABS: Myeloperoxidase Antibody <1.0 AI; Proteinase 3 PR3 Antibodies <1.0 AI
[2020-10-29 15:40] LABS: Hemoglobin 11.2 g/dl (12.0-16.0); Mean Corpuscular Hemoglobin 29.2 pg (27.0-33.0); Mean Corpuscular Volume 91.1 fL (80-98); Mean Platelet Volume 10.3 fL (9.4-12.3); Platelet Count 231 X10*3/uL (160-400); Red Blood Count 3.84 X10*6/uL (4.20-5.50); Red Cell Distribution Width 14.4 % (11.0-16.0)
--- NOTE | 2020-10-29 16:02 | MHC.CM.PN ---
EMR REVIEWED, PT HAD KIDNEY BIOPSY TODAY, CM CONSULTED W/HOSPITALIST AND PT WILL BE DISCHARGED TOMORROW AFTER MORNING INSULIN AND WILL RESUME W/[facility] FOR BID VISITS, [facility], [facility] TEACHER AND MENTAL HEALTH COUNSELING, FAMILY/FRIEND TO TRANSPORT
[2020-10-29 16:27] LABS: Glucose, Whole Blood 269 mg/dL (60-115)
--- NOTE | 2020-10-29 16:52 | PM.PNNEP ---
Subjective Subjective Date of Service: 10/29/20 Interval history: seen and examined, events noted Physical Exam Vital Signs: Vital Signs: Last Vital Signs Temp 98.0 F 10/29/20 15:43 Pulse 60 10/29/20 15:43 Resp 18 10/29/20 15:43 BP 124/50 L 10/29/20 15:43 Pulse Ox 96 10/29/20 15:43 Body Mass Index 40.4 Const: General: cooperative; No acute distress Eyes: EOM: EOMs intact bilaterally Neck: Neck: Yes supple Resp: Auscultation: clear to auscultation bilaterally Cardio: Jugular venous distension: no JVD GI: Palpation (GI): Soft to palpation Neuro: General: moves all extremities Objective Data Labs CBC & Chem 7: 10/29/20 15:30 10/29/20 06:00 Labs: Laboratory Results - last 24 hr 10/25/20 10/28/20 10/29/20 19:43 20:02 06:00 WBC RBC Hgb Hct MCV MCH MCHC RDW Plt Count MPV Absolute Nucleated RBC Nucleated RBC % (auto) PT 10.5 L INR 0.9 Sodium Potassium Chloride Carbon Dioxide Anion Gap BUN Creatinine Estim Creat Clear Calc Estimated GFR POC Glucose 100 Random Glucose Calcium Proteinase 3 (PR3) Ab <1.0 Myeloperoxidase Ab <1.0 10/29/20 10/29/20 10/29/20 06:00 06:01 07:28 WBC 7.3 RBC 3.62 L Hgb 10.5 L Hct 33.0 L MCV 91.2 MCH 29.0 MCHC 31.8 RDW 14.1 Plt Count 221 MPV 10.7 Absolute Nucleated RBC 0.000 Nucleated RBC % (auto) 0.0 PT INR Sodium 140 Potassium 4.5 Chloride 104 Carbon Dioxide 28 Anion Gap 13 BUN 51 H Creatinine 3.07 H Estim Creat Clear Calc 19.7 Estimated GFR 15 POC Glucose 118 H Random Glucose 153 H Calcium 8.0 L Proteinase 3 (PR3) Ab Myeloperoxidase Ab 10/29/20 10/29/20 10/29/20 12:55 15:30 16:12 WBC 7.0 RBC 3.84 L Hgb 11.2 L Hct 35.0 L MCV 91.1 MCH 29.2 MCHC 32.0 RDW 14.4 Plt Count 231 MPV 10.3 Absolute Nucleated RBC 0.000 Nucleated RBC % (auto) 0.0 PT INR Sodium Potassium Chloride Carbon Dioxide Anion Gap BUN Creatinine Estim Creat Clear Calc Estimated GFR POC Glucose 105 269 H Random Glucose Calcium Proteinase 3 (PR3) Ab Myeloperoxidase Ab Assessment & Plan Assessment and plan (1) Acute renal failure: Status: Acute Assessment and Plan: 1. 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 dCHF w DDysfunc and severe HTN w vol Overload: improved with diuresis and BP control 4. NRProt: d/t DN vs other Glom injury; but accuracy of Up/Cr is less in setting of VANDANA 5. Incr edema: d/t AKIand Nephrotic Syndrome and ques norvasc REC: kidney Bx today and cont to hold asprin; check sero/urine studies; if edema worses then deccrease norvasc 5 and start diuretic will need close f/u as outpt re VANDANA eval will follow gee with team Time Spent With Patient Time: Total time spent is greater than 50% in coordination of care (as documented) at patient's floor/unit and/or counseling patient: Procedures Date of Service Date of Service: 10/29/20
[2020-10-29] MEDS: Insulin Lispro 100 UNIT/ML 3 ML VIAL SUBCUT (16:59)
[2020-10-29] MEDS: Furosemide 20 MG TABLET PO (16:59)
[2020-10-29] MEDS: oxyCODONE HCl Immed Release 5 MG TABLET PO (18:00)
[2020-10-29 20:34] LABS: Glucose, Whole Blood 134 mg/dL (60-115)
[2020-10-29] MEDS: OLANZapine 7.5 MG TABLET PO (21:15)
[2020-10-29] MEDS: traZODone HCL 100 MG TABLET PO ×2 (21:16→21:19)
[2020-10-29] MEDS: Mirtazapine 15 MG TABLET PO (21:16)
[2020-10-30] MEDS: oxyCODONE HCl Immed Release 5 MG TABLET PO ×3 (00:42→13:17)
[2020-10-30 03:44] VITALS: BP 138/59; PULSE 64; RESP 18; TEMP 36.8; O2SAT 97
[2020-10-30 05:43] VITALS: BMI 36.6
[2020-10-30 07:02] LABS: Hematocrit 33.9 % (37-47); Hemoglobin 10.7 g/dl (12.0-16.0); Mean Corpuscular HGB Conc 31.6 g/dl (31.0-35.0); Mean Corpuscular Hemoglobin 28.8 pg (27.0-33.0); Mean Corpuscular Volume 91.1 fL (80-98); Mean Platelet Volume 10.9 fL (9.4-12.3); Platelet Count 227 X10*3/uL (160-400); Red Blood Count 3.72 X10*6/uL (4.20-5.50); Red Cell Distribution Width 14.1 % (11.0-16.0); White Blood Count 6.5 X10*3/uL (4.8-10.8)
[2020-10-30 07:32] LABS: Glucose, Whole Blood 299 mg/dL (60-115)
[2020-10-30 07:43] LABS: Anion Gap 15 (12-20); Blood Urea Nitrogen 53 mg/dL (9-16); Carbon Dioxide 23 mmol/L (22-29); Chloride 103 mmol/L (96-108); Creatinine Clr Calc Pharmacy 18.6; Estimated Glomerular Filt Rate 15; Glucose Random 253 mg/dL (60-115); Potassium 4.3 mmol/L (3.3-5.1); Sodium 137 mmol/L (135-145)
[2020-10-30 07:47] VITALS: BP 174/76; PULSE 59; RESP 18; TEMP 36.6; O2SAT 98
[2020-10-30] MEDS: Insulin Lispro 100 UNIT/ML 3 ML VIAL SUBCUT ×2 (08:08→12:15)
[2020-10-30 08:09] VITALS: BP 174/76; PULSE 65
[2020-10-30] MEDS: dilTIAZem HCL CD 180 MG CAP.ER.24H PO (08:09)
[2020-10-30] MEDS: polyethylene glycoL 3350 17 GM POWD.PACK PO (08:09)
[2020-10-30] MEDS: Insulin Glargine,Hum.rec.anlog 100 UNIT/ML 10 ML VIAL 24 UNIT SUBCUT (08:09)
[2020-10-30 08:10] VITALS: BP 174/76; PULSE 65
[2020-10-30] MEDS: Multivitamin TABLET 1 TAB PO (08:10)
[2020-10-30] MEDS: amLODIPine Besylate 5 MG TABLET 10 MG PO (08:10)
[2020-10-30] MEDS: cloNIDine HCL 0.2 MG TABLET PO (08:10)
[2020-10-30] MEDS: Furosemide 20 MG TABLET PO (08:10)
[2020-10-30] MEDS: Escitalopram Oxalate 5 MG TABLET PO (08:10)
[2020-10-30 08:11] VITALS: BP 174/76; PULSE 65
[2020-10-30] MEDS: Nitroglycerin 0.1 MG PATCH.TD24 TRANSDERMA (08:11)
[2020-10-30] MEDS: hydrALAZINE HCl 25 MG TABLET PO (08:11)
[2020-10-30] MEDS: Buprenorphine/Naloxone 8/2 mg FILM 1 FILM SUBLINGUAL (08:12)
[2020-10-30] MEDS: Nicotine 21 MG PATCH.TD24 TRANSDERMA (08:12)
[2020-10-30 11:49] VITALS: BP 126/60; PULSE 59; RESP 18; TEMP 36.7; O2SAT 98
[2020-10-30 11:49] LABS: Glucose, Whole Blood 182 mg/dL (60-115)
--- NOTE | 2020-10-30 14:23 | PM.DS ---
DS: Providers Provider Date of Service: 10/30/20 <Angelica Ashby NP - Last Filed: 10/30/20 17:18> Date of admission: 10/22/20 01:27 <Angelica Ashby NP - Last Filed: 10/30/20 17:18> Date of discharge: 10/30/20 <Angelica Ashby NP - Last Filed: 10/30/20 17:18> Primary care physician: Unknown Physician <Angelica Ashby NP - Last Filed: 10/30/20 17:18> Admitting clinician: Robert Torres <Angelica Ashby NP - Last Filed: 10/30/20 17:18> Attending physician on admission: Robert Torres <Angelica Ashby NP - Last Filed: 10/30/20 17:18> Consults: 10/22/20 03:02 Consult to Cardiology Routine Consulting Provider: Charan Hankins Reason for consultation: chf Has provider been notified: No 10/22/20 09:39 Consult to Care Team Routine Comment: Reason for consultation: admitts to using heroin few days ago, hx iv drug use , no toxicology done 10/24/20 10:05 Consult to Nephrology Routine Consulting Provider: Humza Sanders Reason for consultation: VANDANA, CKD and uncontrolled HTN Has provider been notified: No <Angelica Ashby NP - Last Filed: 10/30/20 17:18> Attending physician on discharge: Socrates Sykes <Angelica Ashby NP - Last Filed: 10/30/20 17:18> Discharging clinician: Angelica Ashby <Angelica Ashby NP - Last Filed: 10/30/20 17:18> DS: Diagnosis Discharge Diagnosis (1) Acute renal failure: Status: Acute <Angelica Ashby NP - Last Filed: 10/30/20 17:18> DS: Medications Discharge Medications Home Medications: Home Medications Medication Instructions Recorded Confirmed Lantus Solostar U-100 Insulin 24 unit SUBCUT DAILY 10/22/20 10/22/20 Spiriva with HandiHaler 1 cap INHALATION DAILY 10/22/20 10/22/20 acetaminophen 1 tab PO Q8H PRN 10/22/20 10/22/20 albuterol sulfate 1 amp INHALATION TID PRN 10/22/20 10/22/20 amlodipine 5 mg PO BEDTIME 10/22/20 10/22/20 aspirin 81 mg PO QAM 10/22/20 10/22/20 buprenorphine-naloxone [Suboxone] 1 strip SUBLINGUAL BID 10/22/20 10/22/20 clonidine HCl 0.1 mg PO BID 10/22/20 10/22/20 diclofenac sodium 2 g TOPICAL QID 10/22/20 10/22/20 diltiazem HCl 180 mg PO QAM 10/22/20 10/22/20 docusate sodium 1 - 2 cap PO BEDTIME PRN 10/22/20 10/22/20 escitalopram oxalate 5 mg PO QAM 10/22/20 10/22/20 hydralazine 25 mg PO BID 10/22/20 10/22/20 insulin lispro [Humalog KwikPen 4 - 12 unit SUBCUT TIDAC 10/22/20 10/22/20 Insulin] losartan 100 mg PO QAM 10/22/20 10/22/20 mirtazapine 15 mg PO BEDTIME 10/22/20 10/22/20 multivitamin [One Daily 1 tab PO QAM 10/22/20 10/22/20 Multivitamin] olanzapine 7.5 mg PO BEDTIME 10/22/20 10/22/20 polyethylene glycol 3350 1 packet PO NEEDED 10/22/20 10/22/20 trazodone 1 - 2 tab PO BEDTIME 10/22/20 10/22/20 <Angelica Ashby NP - Last Filed: 10/30/20 17:18> DS: Summary Hospital Course Hospital Course: HP as per admitting provider This is a 65-year-old female with past medical history of IV drug use, diabetes, hypertension leg swelling as well as elevated blood pressure. Patient reports that she noticed the leg swelling for the past 3 days, she has been having no dyspnea, orthopnea or PND, she is also experiencing elevated blood pressure in the 200s, she is constipated, denies any abdominal pain nausea or vomiting, no urinary symptoms, no fever but has chills, no headache or change in vision, with with chest pain or palpitations. Other patient denies dyspnea, she has been noted to be dyspneic on ambulation from bed to commode and bathroom On arrival to the ED patient hemodynamically stable with a blood pressure of 156/68, but worsened to , denies any headache or chest pain On arrival to the ED hemodynamically stable with a WBC count 11.1, hemoglobin of 11.8, sodium of 142, potassium 4.4, BUN of 27, creatinine of 2.66 with a baseline around 1.4, sodium of 141, BNP of 294, and high sensitivity troponin of 30.9 with no chest pain EKG shows normal sinus rhythm Chest x-ray shows no acute intrathoracic disease . Renal failure. Cardiorenal syndrome. Baseline creatinine 1.3, trended up to 3.29. renal biopsy done. Pending results. Patient is to check BMP in 5 days. Follow up with Dr. Lange for renal biopsy results. HFpEF. Exacerbation treated with IV lasix, cardiology followed. echo on 10/22/20 showed EF of 65%. Lasix initially stopped with renal failure but oral Lasix continued for discharge. Hypertension. Treated with Norvasc, clonidine , nitro patch and diltiazem with better control. Losartan stopped due to VANDANA <Angelica Ashby NP - Last Filed: 10/30/20 17:18> Time Spent with Patient Time attestation: Total time spent providing and/or coordinating discharge services: <Angelica Ashby NP - Last Filed: 10/30/20 17:18> Discharge coordination time: Greater than 30 minutes <Angelica Ashby NP - Last Filed: 10/30/20 17:18> Quality: Stroke Does the patient have a stroke diagnosis?: No <Angelica Ashby NP - Last Filed: 10/30/20 17:18> Physical Exam Vital Signs: Vital Signs: Last Vital Signs Temp 98.0 F 10/30/20 11:49 Pulse 59 10/30/20 11:49 Resp 18 10/30/20 11:49 BP 126/60 10/30/20 11:49 Pulse Ox 98 10/30/20 11:49 Body Mass Index 36.6 <Angelica Ashby NP - Last Filed: 10/30/20 17:18> Appearing in no acute distress head is normocephalic atraumatic eyes pupils are PERRLA sclera is anicteric mouth throat mucous membranes are intact and moist neck is supple no lymphadenopathy, no JVD noted lung sounds are clear to auscultation heart regular rate rhythm, clear S1, S2 positive bowel sounds, abdomen is soft, nontender neuro patient is alert x3, no focal deficits <Angelica Ashby NP - Last Filed: 10/30/20 17:18> DS: Data Data Completed and Pending Pending studies at discharge: Pending at discharge 10/29/20 12:29 Surgical [PTH] Stat <Angelica Ashby NP - Last Filed: 10/30/20 17:18> Labs on day of discharge: Laboratory Results - last 24 hr 10/29/20 10/29/20 10/29/20 15:30 16:12 20:30 WBC 7.0 RBC 3.84 L Hgb 11.2 L Hct 35.0 L MCV 91.1 MCH 29.2 MCHC 32.0 RDW 14.4 Plt Count 231 MPV 10.3 Absolute Nucleated RBC 0.000 Nucleated RBC % (auto) 0.0 Sodium Potassium Chloride Carbon Dioxide Anion Gap BUN Creatinine Estim Creat Clear Calc Estimated GFR POC Glucose 269 H 134 H Random Glucose Calcium 10/30/20 10/30/20 10/30/20 05:54 05:54 07:27 WBC 6.5 RBC 3.72 L Hgb 10.7 L Hct 33.9 L MCV 91.1 MCH 28.8 MCHC 31.6 RDW 14.1 Plt Count 227 MPV 10.9 Absolute Nucleated RBC 0.000 Nucleated RBC % (auto) 0.0 Sodium 137 Potassium 4.3 Chloride 103 Carbon Dioxide 23 Anion Gap 15 BUN 53 H Creatinine 3.07 H Estim Creat Clear Calc 18.6 Estimated GFR 15 POC Glucose 299 H Random Glucose 253 H D Calcium 8.0 L 10/30/20 11:46 WBC RBC Hgb Hct MCV MCH MCHC RDW Plt Count MPV Absolute Nucleated RBC Nucleated RBC % (auto) Sodium Potassium Chloride Carbon Dioxide Anion Gap BUN Creatinine Estim Creat Clear Calc Estimated GFR POC Glucose 182 H Random Glucose Calcium <Angelica Ashby NP - Last Filed: 10/30/20 17:18> Discharge Plan Discharge Anticipated Discharge Date/Time: 10/30/20 14:17 <Angelica Ashby NP - Last Filed: 10/30/20 17:18> Patient Disposition: Home Health Service <Angelica Ashby NP - Last Filed: 10/30/20 17:18> Discharge Diagnosis: acute kidney injury congestive heart failure hypertension diabetes opiate dependence <Angelica Ashby NP - Last Filed: 10/30/20 17:18> acute kidney injury congestive heart failure hypertension diabetes opiate dependence <Socrates Sykes MD - Last Filed: 10/30/20 18:39> Referrals: [facility] [Outside] - 1 Day (RESUMPTION OF CARE) Clive Lange MD [Physician] - 1 Week ( renal biopsy results) <Angelica Ashby NP - Last Filed: 10/30/20 17:18> Discharge Medications: Continued albuterol sulfate 2.5 mg /3 mL (0.083 %) solution for nebulization 1 amp inhalation TID PRN (Reason: Shortness Of Breath) RF: 0 polyethylene glycol 3350 17 gram powder in packet 1 packet PO NEEDED RF: 0 olanzapine 7.5 mg tablet 7.5 mg PO BEDTIME RF: 0 acetaminophen 500 mg tablet 1 tab PO Q8H PRN (Reason: pain) RF: 0 trazodone 100 mg tablet 1 - 2 tab PO BEDTIME RF: 0 docusate sodium 100 mg capsule 1 - 2 cap PO BEDTIME PRN (Reason: constipation) RF: 0 mirtazapine 15 mg tablet 15 mg PO BEDTIME RF: 0 diclofenac sodium 1 % gel 2 g topical QID RF: 0 buprenorphine-naloxone [Suboxone] 8-2 mg film 1 strip sublingual BID RF: 0 multivitamin [One Daily Multivitamin] Tablet 1 tab PO QAM RF: 0 clonidine HCl 0.1 mg tablet 0.1 mg PO BID RF: 0 diltiazem HCl 180 mg capsule,extended release 24hr 180 mg PO QAM RF: 0 hydralazine 25 mg tablet 25 mg PO BID RF: 0 amlodipine 5 mg tablet 5 mg PO BEDTIME RF: 0 aspirin 81 mg tablet,delayed release (DR/EC) 81 mg PO QAM RF: 0 insulin lispro [Humalog KwikPen Insulin] 100 unit/mL insulin pen 4 - 12 unit subcut TIDAC RF: 0 escitalopram oxalate 5 mg tablet 5 mg PO QAM RF: 0 Spiriva with HandiHaler 18 mcg capsule, w/inhalation device 1 cap inhalation DAILY RF: 0 Lantus Solostar U-100 Insulin 100 unit/mL (3 mL) insulin pen 24 unit subcut DAILY RF: 0 Discontinued losartan 100 mg tablet 100 mg PO QAM RF: 0 <Angelica Ashby NP - Last Filed: 10/30/20 17:18> Discharge Orders: Discharge Order (Routine); Ordered 10/30/20 Ordered By: Angelica Ashby <Angelica Ashby NP - Last Filed: 10/30/20 17:18> Diet: advance to usual diet <Angelica Ashby NP - Last Filed: 10/30/20 17:18> advance to usual diet <Socrates Sykes MD - Last Filed: 10/30/20 18:39> Activity on Discharge: As tolerated <Angelica Ashby NP - Last Filed: 10/30/20 17:18> As tolerated <Socrates Sykes MD - Last Filed: 10/30/20 18:39> Stand Alone Forms: Patient Portal Discharge page <Angelica Ashby NP - Last Filed: 10/30/20 17:18> Other Ambulatory Orders: Basic Metabolic Panel (Routine) Timeframe: 20201104 Facility: [facility] - Location: Laboratory Ordered By: Angelica Ashby <Angelica Ashby NP - Last Filed: 10/30/20 17:18> Care Plan Goals: Improvement renal function <Angelica Ashby NP - Last Filed: 10/30/20 17:18> Health Concerns: acute kidney injury congestive heart failure hypertension diabetes opiate dependence <Angelica Ashby NP - Last Filed: 10/30/20 17:18> Plan of Treatment: Follow-up with retail marketing executive, Dr. Lange for biopsy results Follow-up with the primary care provider as needed Do not use cocaine <Angelica Ashby NP - Last Filed: 10/30/20 17:18> Assessment: see discharge summary I saw and examined the patient and discussed findings, mangement, and disposition with PA and I agree with the above, except if otherwise stated <Angelica Ashby NP - Last Filed: 10/30/20 17:18> Discharge Date/Time: 10/30/20 15:37 <Angelica Ashby NP - Last Filed: 10/30/20 17:18>
--- NOTE | 2020-10-30 15:38 | MHC.CM.PN ---
PT WILL DC HOME TODAY WITH [facility]UMPTION OF [employer] AND [facility]. VM LEFT FOR [facility] CARE NURSE, LAURENT ([phone]) INFORMING HER OF DC AND REQUESTING A FAX NUMBER FOR DC PAPERWORK. [employer] PROVIDED PT HAS NO TRANSPORTATION HOME AND IS NOT APPROPRIATE FOR CHAIR VAN/S
== END 2020-10-30 15:37 | disposition home health service (06) | DRG 194 ==
LOC: HO.ED 10-22 00:07 → HO.S3 10-22 02:14 → HO.IMC 10-26 23:18
PROVIDERS: Internal Medicine Nephrology; Nurse Practitioner Acute Care; Physician Assistant Medical; Radiology Diagnostic Radiology; Admitting Provider Internal Medicine; Emergency Provider Internal Medicine; Visit Provider Internal Medicine
DX: I13.0 Hypertensive heart and chronic kidney disease with heart failure and stage 1 through stage 4 chronic kidney disease, or unspecified chronic kidney disease (principal); N17.9 Acute kidney failure, unspecified; N00.8 Acute nephritic syndrome with other morphologic changes; E11.22 Type 2 diabetes mellitus with diabetic chronic kidney disease; N18.30 Chronic kidney disease, stage 3 unspecified; F17.210 Nicotine dependence, cigarettes, uncomplicated; D72.829 Elevated white blood cell count, unspecified; F32.9 Major depressive disorder, single episode, unspecified; I50.33 Acute on chronic diastolic (congestive) heart failure; F11.23 Opioid dependence with withdrawal; F41.9 Anxiety disorder, unspecified; Z71.6 Tobacco abuse counseling; K59.00 Constipation, unspecified; Z20.822 Contact with and (suspected) exposure to COVID-19; Z79.4 Long term (current) use of insulin; Z79.82 Long term (current) use of aspirin; Z79.899 Other long term (current) drug therapy
CPT/HCPCS: 36415; 50200; 71045; 77012; 80048; 81001; 82784; 82947; 83880; 84156; 84484; 85025; 85027; 85379; 85610; 86021; 86160; 86334; 86704; 86706; 86803; 87340; 87635; 88305; 89190; 93005; 93308; 93975; 94640; 94664; 99152; 99153; 99285; J1940; J2405

== ENCOUNTER 2020-11-02 13:20 | Emergency (ER) | payer MEDICAID, SELFPAY ==
--- NOTE | ~2020-11-02 | US_ITS ---
EXAMINATION: US VENOUS ULTRASOUND WITH DOPPLER LOWER EXTREMITY, LEFT CLINICAL INFORMATION: Swelling and pain. COMPARISON: None TECHNIQUE: Ultrasound of the deep veins is performed from the hip to the calf with compression sonography and color and pulse Doppler assessment. Spectral analysis with color-flow imaging is performed. FINDINGS: There is normal venous compression and respiratory variation and augmented flow. The visualized common femoral vein, superficial femoral vein, profunda femoral vein, popliteal vein, and the trifurcation region shows no evidence of deep venous thrombosis. There is no popliteal fossa cyst. US/US venous duplex LE LT IMPRESSION: No DVT demonstrated in the left lower extremity.
--- NOTE | ~2020-11-02 | XR_ITS ---
EXAMINATION: XR CHEST CLINICAL INFORMATION: Hypertension. CHF. COMPARISON: Previous chest x-ray most recent October 2020 TECHNIQUE: 2 views of the chest were obtained. FINDINGS: The cardiac and mediastinal are stable. The lungs are clear. There is no pleural effusion or pneumothorax. There are degenerative changes of the spine. XR/XR chest 2V IMPRESSION: No evidence for acute disease in the chest.
[2020-11-02 13:47] VITALS: BP 203/100; PULSE 73; RESP 18; TEMP 37.4; O2SAT 96; BMI 35.3
--- NOTE | 2020-11-02 13:48 | ECG_ITS ---
Test Reason : LEG SWELLING Blood Pressure : / mmHG Vent. Rate : 072 BPM Atrial Rate : 072 BPM P-R Int : 160 ms QRS Dur : 088 ms QT Int : 402 ms P-R-T Axes : 059 -11 045 degrees QTc Int : 440 ms Normal sinus rhythm Possible Left atrial enlargement Left ventricular hypertrophy Abnormal ECG When compared with ECG of 21-OCT-2020 22:36, No significant change was found Referred By: Francisca Senior Electronically Signed By:SALVADOR SARABIA
--- NOTE | 2020-11-02 13:49 | ED.GENADULT ---
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 She had an appointment at the clinic and was found to have increased BP and left swollen leg. Patient denies chest pain or shortness of breath. <Paul Bai MD - Last Filed: 11/02/20 15:45> Onset (ago): week(s) (2) <Paul Bai MD - Last Filed: 11/02/20 15:45> Location: lower extremity <Paul Bai MD - Last Filed: 11/02/20 15:45> Severity: moderate <Paul Bai MD - Last Filed: 11/02/20 15:45> Related Data Home medications: Home Medications Medication Instructions Recorded Confirmed Lantus Solostar U-100 Insulin 24 unit SUBCUT DAILY 10/22/20 10/22/20 Spiriva with HandiHaler 1 cap INHALATION DAILY 10/22/20 10/22/20 acetaminophen 1 tab PO Q8H PRN 10/22/20 10/22/20 albuterol sulfate 1 amp INHALATION TID PRN 10/22/20 10/22/20 amlodipine 5 mg PO BEDTIME 10/22/20 10/22/20 aspirin 81 mg PO QAM 10/22/20 10/22/20 buprenorphine-naloxone [Suboxone] 1 strip SUBLINGUAL BID 10/22/20 10/22/20 clonidine HCl 0.1 mg PO BID 10/22/20 10/22/20 diclofenac sodium 2 g TOPICAL QID 10/22/20 10/22/20 diltiazem HCl 180 mg PO QAM 10/22/20 10/22/20 docusate sodium 1 - 2 cap PO BEDTIME PRN 10/22/20 10/22/20 escitalopram oxalate 5 mg PO QAM 10/22/20 10/22/20 hydralazine 25 mg PO BID 10/22/20 10/22/20 insulin lispro [Humalog KwikPen 4 - 12 unit SUBCUT TIDAC 10/22/20 10/22/20 Insulin] mirtazapine 15 mg PO BEDTIME 10/22/20 10/22/20 multivitamin [One Daily 1 tab PO QAM 10/22/20 10/22/20 Multivitamin] olanzapine 7.5 mg PO BEDTIME 10/22/20 10/22/20 polyethylene glycol 3350 1 packet PO NEEDED 10/22/20 10/22/20 trazodone 1 - 2 tab PO BEDTIME 10/22/20 10/22/20 Previous Rx's Medication Instructions Recorded furosemide [Lasix] 40 mg PO DAILY #20 tab 11/02/20 <Francisca Senior NP - Last Filed: 11/02/20 13:50> Allergies/adverse reactions: Allergies Allergy/AdvReac Type Severity Reaction Status Date / Time No Known Allergies Allergy Mild NOT Verified 10/21/20 18:58 APPLICABLE <Francisca Senior NP - Last Filed: 11/02/20 13:50> Review of Systems Constitutional: Constitutional: Reports no additional constitutional complaints <Paul Bai MD - Last Filed: 11/02/20 15:45> Eyes: Eyes: Reports no additional eye complaints <Paul Bai MD - Last Filed: 11/02/20 15:45> ENT: Denies dizziness <Pual Bai MD - Last Filed: 11/02/20 15:45> Cardiovascular: Cardiovascular: Reports no additional cardiovascular complaints <Paul Bai MD - Last Filed: 11/02/20 15:45> Respiratory: Respiratory: Reports as per HPI <Paul Bai MD - Last Filed: 11/02/20 15:45> Gastrointestinal: Gastrointestinal: Reports no additional gastrointestinal complaints <Paul Bai MD - Last Filed: 11/02/20 15:45> Genitourinary: Genitourinary: Reports no additional female genitourinary complaints <Paul Bai MD - Last Filed: 11/02/20 15:45> Musculoskeletal: Musculoskeletal: Reports no additional musculoskeletal complaints <Paul Bai MD - Last Filed: 11/02/20 15:45> Integumentary/Breasts: Skin/Breast: Denies rash <Paul Bai MD - Last Filed: 11/02/20 15:45> Neurologic: Reports system reviewed and no additional complaints, except as documented, Denies dizziness and Denies Sensory deficit (Neuro) <Paul Bai MD - Last Filed: 11/02/20 15:45> Psychiatric: Psychiatric: Denies anxiety <Paul Bai MD - Last Filed: 11/02/20 15:45> PMFSH Past Medical History Medical History: Medical History Diabetes mellitus Hypertension <Francisca Senior NP - Last Filed: 11/02/20 13:50> Social History Social History: Social History Household Members: None Housing: Apartment Do you presently have visiting nurse or other home services: Yes Patient Tobacco Use Status: Current everyday Tobacco user Tobacco use type: Cigarette Cigarette Packs Per Day: 1 Cigarettes Per Day: 20.0 Second Hand Smoke Exposure: No Substance Use Type: Heroin Advance Directives: No Advance Directives Information Provided: No Patient : No service: No Current occupational status: unemployed <Francisca Senior NP - Last Filed: 11/02/20 13:50> Physical Exam Vital Signs: Vital Signs: Last Vital Signs Temp 99.3 F 11/02/20 13:47 Pulse 74 11/02/20 15:21 Resp 16 11/02/20 15:21 BP 182/83 H 11/02/20 15:21 Pulse Ox 99 11/02/20 15:21 Body Mass Index 35.3 <Francisca Senior NP - Last Filed: 11/02/20 13:50> Vital Signs: Last Vital Signs Temp 99.3 F 11/02/20 13:47 Pulse 74 11/02/20 15:21 Resp 16 11/02/20 15:21 BP 182/83 H 11/02/20 15:21 Pulse Ox 99 11/02/20 15:21 Body Mass Index 35.3 <Paul Bai MD - Last Filed: 11/02/20 15:45> Const: General: healthy appearing <Paul Bai MD - Last Filed: 11/02/20 15:45> Nutritional Appearance: average body habitus <Paul Bai MD - Last Filed: 11/02/20 15:45> Orientation/consciousness: oriented to person and patient oriented x3 <Paul Bai MD - Last Filed: 11/02/20 15:45> Limitations: no limitations <Paul Bai MD - Last Filed: 11/02/20 15:45> HENMT: Head: Yes normal to inspection <Paul Bai MD - Last Filed: 11/02/20 15:45> Ears: external ears normal <Paul Bai MD - Last Filed: 11/02/20 15:45> General nose exam: Normal external nose present <Paul Bai MD - Last Filed: 11/02/20 15:45> Mouth: Normal oral and palatal mucosa present and oropharynx normal <Paul Bai MD - Last Filed: 11/02/20 15:45> Throat: Yes posterior oropharynx normal <Paul Bai MD - Last Filed: 11/02/20 15:45> Eyes: General: appearance normal, both eyes and all related structures <Paul Bai MD - Last Filed: 11/02/20 15:45> Neck: Other: supple <Paul Bai MD - Last Filed: 11/02/20 15:45> Neck: Yes normal visual inspection <Paul Bai MD - Last Filed: 11/02/20 15:45> Chest: Chest palpation & inspection: normal inspection of the chest <MD Demi Monsalve Last Filed: 11/02/20 15:45> Resp: Auscultation: clear to auscultation bilaterally <MD Demi Monsalve Last Filed: 11/02/20 15:45> Cardio: Jugular venous distension: no JVD <Paul Bai MD - Last Filed: 11/02/20 15:45> Rate: regular rate <Paul Bai MD - Last Filed: 11/02/20 15:45> Rhythm: regular rhythm <Paul Bai MD - Last Filed: 11/02/20 15:45> Heart sounds: S1 normal heart sound present and S2 normal heart sound present <Paul Bai MD - Last Filed: 11/02/20 15:45> GI: Inspection: Yes normal to inspection <Paul Bai MD - Last Filed: 11/02/20 15:45> Palpation (GI): Soft to palpation, nontender and No hepatosplenomegaly present <Paul Bai MD - Last Filed: 11/02/20 15:45> Auscultation: normal bowel sounds <Paul Bai MD - Last Filed: 11/02/20 15:45> : General: Yes no CVA tenderness <Paul Bai MD - Last Filed: 11/02/20 15:45> Back/Spine/Pelvis: Back: no CVA tenderness <Paul Bai MD - Last Filed: 11/02/20 15:45> Skin: General skin exam: no rashes or lesions noted <Paul Bai MD - Last Filed: 11/02/20 15:45> Neuro: General: oriented to person and patient oriented x3 <Paul Bai MD - Last Filed: 11/02/20 15:45> Cranial nerves: Yes CN's II-XII intact bilaterally <Paul Bai MD - Last Filed: 11/02/20 15:45> Motor exam (neuro): 5/5 motor strength present throughout <Paul Bai MD - Last Filed: 11/02/20 15:45> Sensory Exam: No Sensory deficit (Neuro) <Palu Bai MD - Last Filed: 11/02/20 15:45> Extrem: Other: bilateral 3+ edema <Paul Bai MD - Last Filed: 11/02/20 15:45> Psych: Appearance: grossly normal <Paul Bai MD - Last Filed: 11/02/20 15:45> Course Course Course Narrative: 1345-this is rapid medical exam. Patient here with LLE swelling and pain x 1 week, atraumatic. Also noted to have swelling bilateral LE with HTN at home for last few days. Will need CXR, EKG, labs, LLE US. Deferred additional HPI, ROS and PE to primary provider. <Francisca Senior NP - Last Filed: 11/02/20 13:50> Reevaluation(s) Reevaluation #1: patient with chronically elevated troponins, EKG non ischemic <Paul Bai MD - Last Filed: 11/02/20 15:45> Time: 15:42 <Paul Bai MD - Last Filed: 11/02/20 15:45> Medical Decision Making Lab Data Result diagrams: : 11/02/20 14:50 11/02/20 14:50 <Francisca Senior NP - Last Filed: 11/02/20 13:50> Labs: Lab Results 11/02/20 11/02/20 11/02/20 Range/Units 14:50 14:50 14:50 WBC 10.1 (4.8-10.8) X10*3/uL RBC 3.86 L (4.20-5.50) X10*6/uL Hgb 11.4 L (12.0-16.0) g/dl Hct 35.1 L (37-47) % MCV 90.9 (80-98) fL MCH 29.5 (27.0-33.0) pg MCHC 32.5 (31.0-35.0) g/dl RDW 14.3 (11.0-16.0) % Plt Count 295 D (160-400) X10*3/uL MPV 10.0 (9.4-12.3) fL Immature Gran % (Auto) 0.4 (0.0-0.4) % Neut % (Auto) 72.9 (45-73) % Lymph % (Auto) 16.1 L (20-40) % [place] % (Auto) 6.3 (2-11) % Eos % (Auto) 4.0 (0-4) % Baso % (Auto) 0.3 (0-2) % Lymph # (Auto) 1.6 (1.2-4.9) X10*3/uL [place] # (Auto) 0.6 (0.1-1.2) X10*3/uL Eos # (Auto) 0.4 (0.0-0.4) X10*3/uL Baso # (Auto) 0.0 (0.0-0.2) X10*3/uL Abs Immat Gran (auto) 0.04 H (0.00-0.03) X10*3/uL Absolute Neuts (auto) 7.4 (2.0-8.3) X10*3/uL Absolute Nucleated RBC 0.000 (0.0-0.012) X10*3/uL Nucleated RBC % (auto) 0.0 (0.0-0.2) /100WBC PT 11.6 (10.8-13.0) SEC INR 1.0 (0.9-1.1) Sodium 139 (135-145) mmol/L Potassium 4.2 (3.3-5.1) mmol/L Chloride 105 (96-108) mmol/L Carbon Dioxide 23 (22-29) mmol/L Anion Gap 15 (12-20) BUN 37 H (9-16) mg/dL Creatinine 2.93 H (0.5-1.4) mg/dL Estim Creat Clear Calc 19.1 Estimated GFR 16 Random Glucose 232 H (60-115) mg/dL Calcium 8.6 D (8.4-10.2) mg/dL Total Bilirubin 0.3 (0.0-1.0) mg/dL Direct Bilirubin < 0.2 (0.0-0.5) mg/dL AST 22 D (5-31) U/L ALT 20 (0-31) U/L Alkaline Phosphatase 148 H D (39-117) U/L Troponin I High Sens (<3.5-17.0) ng/L Total Protein 6.3 L (6.5-8.0) g/dL Albumin 3.4 L (3.5-5.0) g/dL Urine Color Urine Appearance Urine pH (5.0-8.0) Ur Specific [place] (1.005-1.025) Urine Protein (NEG-TRACE) MG/DL Urine Glucose (UA) (NEG) MG/DL Urine Ketones (NEG) MG/DL Urine Blood (NEG) Urine Nitrite (NEG) Ur Leukocyte Esterase (NEG) Urine RBC (0) /HPF Urine WBC (0-4) /HPF Ur Squamous Epith Cells /LPF Urine Bacteria /LPF 11/02/20 11/02/20 Range/Units 14:50 14:50 WBC (4.8-10.8) X10*3/uL RBC (4.20-5.50) X10*6/uL Hgb (12.0-16.0) g/dl Hct (37-47) % MCV (80-98) fL MCH (27.0-33.0) pg MCHC (31.0-35.0) g/dl RDW (11.0-16.0) % Plt Count (160-400) X10*3/uL MPV (9.4-12.3) fL Immature Gran % (Auto) (0.0-0.4) % Neut % (Auto) (45-73) % Lymph % (Auto) (20-40) % [place] % (Auto) (2-11) % Eos % (Auto) (0-4) % Baso % (Auto) (0-2) % Lymph # (Auto) (1.2-4.9) X10*3/uL [place] # (Auto) (0.1-1.2) X10*3/uL Eos # (Auto) (0.0-0.4) X10*3/uL Baso # (Auto) (0.0-0.2) X10*3/uL Abs Immat Gran (auto) (0.00-0.03) X10*3/uL Absolute Neuts (auto) (2.0-8.3) X10*3/uL Absolute Nucleated RBC (0.0-0.012) X10*3/uL Nucleated RBC % (auto) (0.0-0.2) /100WBC PT (10.8-13.0) SEC INR (0.9-1.1) Sodium (135-145) mmol/L Potassium (3.3-5.1) mmol/L Chloride (96-108) mmol/L Carbon Dioxide (22-29) mmol/L Anion Gap (12-20) BUN (9-16) mg/dL Creatinine (0.5-1.4) mg/dL Estim Creat Clear Calc Estimated GFR Random Glucose (60-115) mg/dL Calcium (8.4-10.2) mg/dL Total Bilirubin (0.0-1.0) mg/dL Direct Bilirubin (0.0-0.5) mg/dL AST (5-31) U/L ALT (0-31) U/L Alkaline Phosphatase (39-117) U/L Troponin I High Sens 29.0 H* (<3.5-17.0) ng/L Total Protein (6.5-8.0) g/dL Albumin (3.5-5.0) g/dL Urine Color YELLOW Urine Appearance CLEAR Urine pH 6.0 (5.0-8.0) Ur Specific [place] 1.015 (1.005-1.025) Urine Protein 3+ H (NEG-TRACE) MG/DL Urine Glucose (UA) NEG (NEG) MG/DL Urine Ketones NEG (NEG) MG/DL Urine Blood TRACE (NEG) Urine Nitrite NEG (NEG) Ur Leukocyte Esterase NEG (NEG) Urine RBC 1-4 (0) /HPF Urine WBC 0-2 (0-4) /HPF Ur Squamous Epith Cells 3+ /LPF Urine Bacteria 1+ /LPF <Farncisca Senior, HEALTH UNIT CLERK - Last Filed: 11/02/20 13:50> Lab Results 11/02/20 11/02/20 11/02/20 Range/Units 14:50 14:50 14:50 WBC 10.1 (4.8-10.8) X10*3/uL RBC 3.86 L (4.20-5.50) X10*6/uL Hgb 11.4 L (12.0-16.0) g/dl Hct 35.1 L (37-47) % MCV 90.9 (80-98) fL MCH 29.5 (27.0-33.0) pg MCHC 32.5 (31.0-35.0) g/dl RDW 14.3 (11.0-16.0) % Plt Count 295 D (160-400) X10*3/uL MPV 10.0 (9.4-12.3) fL Immature Gran % (Auto) 0.4 (0.0-0.4) % Neut % (Auto) 72.9 (45-73) % Lymph % (Auto) 16.1 L (20-40) % [place] % (Auto) 6.3 (2-11) % Eos % (Auto) 4.0 (0-4) % Baso % (Auto) 0.3 (0-2) % Lymph # (Auto) 1.6 (1.2-4.9) X10*3/uL [place] # (Auto) 0.6 (0.1-1.2) X10*3/uL Eos # (Auto) 0.4 (0.0-0.4) X10*3/uL Baso # (Auto) 0.0 (0.0-0.2) X10*3/uL Abs Immat Gran (auto) 0.04 H (0.00-0.03) X10*3/uL Absolute Neuts (auto) 7.4 (2.0-8.3) X10*3/uL Absolute Nucleated RBC 0.000 (0.0-0.012) X10*3/uL Nucleated RBC % (auto) 0.0 (0.0-0.2) /100WBC PT 11.6 (10.8-13.0) SEC INR 1.0 (0.9-1.1) Sodium 139 (135-145) mmol/L Potassium 4.2 (3.3-5.1) mmol/L Chloride 105 (96-108) mmol/L Carbon Dioxide 23 (22-29) mmol/L Anion Gap 15 (12-20) BUN 37 H (9-16) mg/dL Creatinine 2.93 H (0.5-1.4) mg/dL Estim Creat Clear Calc 19.1 Estimated GFR 16 Random Glucose 232 H (60-115) mg/dL Calcium 8.6 D (8.4-10.2) mg/dL Total Bilirubin 0.3 (0.0-1.0) mg/dL Direct Bilirubin < 0.2 (0.0-0.5) mg/dL AST 22 D (5-31) U/L ALT 20 (0-31) U/L Alkaline Phosphatase 148 H D (39-117) U/L Troponin I High Sens (<3.5-17.0) ng/L Total Protein 6.3 L (6.5-8.0) g/dL Albumin 3.4 L (3.5-5.0) g/dL Urine Color Urine Appearance Urine pH (5.0-8.0) Ur Specific [place] (1.005-1.025) Urine Protein (NEG-TRACE) MG/DL Urine Glucose (UA) (NEG) MG/DL Urine Ketones (NEG) MG/DL Urine Blood (NEG) Urine Nitrite (NEG) Ur Leukocyte Esterase (NEG) Urine RBC (0) /HPF Urine WBC (0-4) /HPF Ur Squamous Epith Cells /LPF Urine Bacteria /LPF 11/02/20 11/02/20 Range/Units 14:50 14:50 WBC (4.8-10.8) X10*3/uL RBC (4.20-5.50) X10*6/uL Hgb (12.0-16.0) g/dl Hct (37-47) % MCV (80-98) fL MCH (27.0-33.0) pg MCHC (31.0-35.0) g/dl RDW (11.0-16.0) % Plt Count (160-400) X10*3/uL MPV (9.4-12.3) fL Immature Gran % (Auto) (0.0-0.4) % Neut % (Auto) (45-73) % Lymph % (Auto) (20-40) % [place] % (Auto) (2-11) % Eos % (Auto) (0-4) % Baso % (Auto) (0-2) % Lymph # (Auto) (1.2-4.9) X10*3/uL [place] # (Auto) (0.1-1.2) X10*3/uL Eos # (Auto) (0.0-0.4) X10*3/uL Baso # (Auto) (0.0-0.2) X10*3/uL Abs Immat Gran (auto) (0.00-0.03) X10*3/uL Absolute Neuts (auto) (2.0-8.3) X10*3/uL Absolute Nucleated RBC (0.0-0.012) X10*3/uL Nucleated RBC % (auto) (0.0-0.2) /100WBC PT (10.8-13.0) SEC INR (0.9-1.1) Sodium (135-145) mmol/L Potassium (3.3-5.1) mmol/L Chloride (96-108) mmol/L Carbon Dioxide (22-29) mmol/L Anion Gap (12-20) BUN (9-16) mg/dL Creatinine (0.5-1.4) mg/dL Estim Creat Clear Calc Estimated GFR Random Glucose (60-115) mg/dL Calcium (8.4-10.2) mg/dL Total Bilirubin (0.0-1.0) mg/dL Direct Bilirubin (0.0-0.5) mg/dL AST (5-31) U/L ALT (0-31) U/L Alkaline Phosphatase (39-117) U/L Troponin I High Sens 29.0 H* (<3.5-17.0) ng/L Total Protein (6.5-8.0) g/dL Albumin (3.5-5.0) g/dL Urine Color YELLOW Urine Appearance CLEAR Urine pH 6.0 (5.0-8.0) Ur Specific [place] 1.015 (1.005-1.025) Urine Protein 3+ H (NEG-TRACE) MG/DL Urine Glucose (UA) NEG (NEG) MG/DL Urine Ketones NEG (NEG) MG/DL Urine Blood TRACE (NEG) Urine Nitrite NEG (NEG) Ur Leukocyte Esterase NEG (NEG) Urine RBC 1-4 (0) /HPF Urine WBC 0-2 (0-4) /HPF Ur Squamous Epith Cells 3+ /LPF Urine Bacteria 1+ /LPF <Paul Bai MD - Last Filed: 11/02/20 15:45> Discharge Plan Discharge Clinical Impression: Edema <Francisca Seniro NP - Last Filed: 11/02/20 13:50> Patient Disposition: Home, Self-Care <Francisca Senior NP - Last Filed: 11/02/20 13:50> Instructions: Edema (ED) <Francisca Senior NP - Last Filed: 11/02/20 13:50> Prescriptions: New furosemide [Lasix] 40 mg tablet 40 mg PO DAILY Qty: 20 RF: 0 No Action albuterol sulfate 2.5 mg /3 mL (0.083 %) solution for nebulization 1 amp inhalation TID PRN (Reason: Shortness Of Breath) RF: 0 polyethylene glycol 3350 17 gram powder in packet 1 packet PO NEEDED RF: 0 olanzapine 7.5 mg tablet 7.5 mg PO BEDTIME RF: 0 acetaminophen 500 mg tablet 1 tab PO Q8H PRN (Reason: pain) RF: 0 trazodone 100 mg tablet 1 - 2 tab PO BEDTIME RF: 0 docusate sodium 100 mg capsule 1 - 2 cap PO BEDTIME PRN (Reason: constipation) RF: 0 mirtazapine 15 mg tablet 15 mg PO BEDTIME RF: 0 diclofenac sodium 1 % gel 2 g topical QID RF: 0 buprenorphine-naloxone [Suboxone] 8-2 mg film 1 strip sublingual BID RF: 0 multivitamin [One Daily Multivitamin] Tablet 1 tab PO QAM RF: 0 clonidine HCl 0.1 mg tablet 0.1 mg PO BID RF: 0 diltiazem HCl 180 mg capsule,extended release 24hr 180 mg PO QAM RF: 0 hydralazine 25 mg tablet 25 mg PO BID RF: 0 amlodipine 5 mg tablet 5 mg PO BEDTIME RF: 0 aspirin 81 mg tablet,delayed release (DR/EC) 81 mg PO QAM RF: 0 insulin lispro [Humalog KwikPen Insulin] 100 unit/mL insulin pen 4 - 12 unit subcut TIDAC RF: 0 escitalopram oxalate 5 mg tablet 5 mg PO QAM RF: 0 Spiriva with HandiHaler 18 mcg capsule, w/inhalation device 1 cap inhalation DAILY RF: 0 Lantus Solostar U-100 Insulin 100 unit/mL (3 mL) insulin pen 24 unit subcut DAILY RF: 0 <Francisca Senior NP - Last Filed: 11/02/20 13:50> Referrals: Sammy Vicente MD [Primary Care Provider] - 2 days <Francisca Senior NP - Last Filed: 11/02/20 13:50>
[2020-11-02 15:01] LABS: MANUAL DIFF FLAG NO
[2020-11-02 15:02] LABS: Basophils Percent Auto 0.3 % (0-2); Eosinophils Absolute Auto 0.4 X10*3/uL (0.0-0.4); Hematocrit 35.1 % (37-47); Hemoglobin 11.4 g/dl (12.0-16.0); Imm Gran Abs Auto 0.04 X10*3/uL (0.00-0.03); Imm Gran Pct Auto 0.4 % (0.0-0.4); Lymphocytes Absolute Auto 1.6 X10*3/uL (1.2-4.9); Lymphocytes Percent Auto 16.1 % (20-40); Mean Corpuscular HGB Conc 32.5 g/dl (31.0-35.0); Mean Corpuscular Hemoglobin 29.5 pg (27.0-33.0); Mean Corpuscular Volume 90.9 fL (80-98); Monocytes Absolute Auto 0.6 X10*3/uL (0.1-1.2); Monocytes Percent Auto 6.3 % (2-11); Neutrophils Absolute Auto 7.4 X10*3/uL (2.0-8.3); Neutrophils Percent Auto 72.9 % (45-73); Platelet Count 295 X10*3/uL (160-400); Red Blood Count 3.86 X10*6/uL (4.20-5.50); Red Cell Distribution Width 14.3 % (11.0-16.0); White Blood Count 10.1 X10*3/uL (4.8-10.8)
[2020-11-02 15:05] LABS: Glucose Urine UA NEG (NEG); Leukocyte Esterase Urine NEG (NEG); Nitrite Urine NEG (NEG); Specific Gravity - Urine 1.015 (1.005-1.025); Urine Blood TRACE (NEG); Urine Ketones NEG (NEG); Urine Protein 3+ MG/DL (NEG-TRACE)
[2020-11-02 15:06] LABS: Appearance Urine CLEAR; Color Urine YELLOW
[2020-11-02 15:08] LABS: Prothrombin Time 11.6 SEC (10.8-13.0)
[2020-11-02 15:19] LABS: Bacteria Urine 1+ /LPF; Squamous Epithelial Cell Urine 3+ /LPF; WBC Urine 0-2 /HPF (0-4)
[2020-11-02 15:21] VITALS: BP 182/83; PULSE 74; RESP 16; O2SAT 99
[2020-11-02] MEDS: Furosemide 40 MG TABLET PO (15:28)
[2020-11-02 15:29] LABS: Alanine Aminotransferase 20 U/L (0-31); Albumin Level 3.4 g/dL (3.5-5.0); Alkaline Phosphatase 148 U/L (39-117); Anion Gap 15 (12-20); Aspartate Amino Transferase 22 U/L (5-31); Bilirubin Direct < 0.2 mg/dL (0.0-0.5); Bilirubin Total 0.3 mg/dL (0.0-1.0); Blood Urea Nitrogen 37 mg/dL (9-16); Calcium 8.6 mg/dL (8.4-10.2); Carbon Dioxide 23 mmol/L (22-29); Chloride 105 mmol/L (96-108); Creatinine Clr Calc Pharmacy 19.1; Estimated Glomerular Filt Rate 16; Glucose Random 232 mg/dL (60-115); Potassium 4.2 mmol/L (3.3-5.1); Sodium 139 mmol/L (135-145); Total Protein 6.3 g/dL (6.5-8.0)
[2020-11-02 15:45] LABS: B Type Natriuretic Peptide 85 pg/mL (<100)
== END 2020-11-02 16:19 | disposition home or self-care (01) ==
PROVIDERS: Nurse Practitioner Family; Emergency Provider Emergency Medicine; PCP Internal Medicine
DX: R60.9 Edema, unspecified (principal); M79.605 Pain in left leg; E11.9 Type 2 diabetes mellitus without complications; I10 Essential (primary) hypertension; Z79.4 Long term (current) use of insulin; Z79.899 Other long term (current) drug therapy
CPT/HCPCS: 36415; 71046; 80048; 80076; 81001; 83880; 84484; 85025; 85610; 93005; 93971; 99284

== ENCOUNTER 2020-12-14 11:05 | Emergency (ER) | payer MEDICAID, SELFPAY ==
[2020-12-14 11:50] VITALS: BP 218/73; PULSE 72; RESP 18; TEMP 37; O2SAT 98; BMI 34.5
== END 2020-12-14 15:42 | disposition left against medical advice (07) ==
PROVIDERS: Emergency Provider Emergency Medicine
DX: R10.9 Unspecified abdominal pain (principal); K59.03 Drug induced constipation; F11.20 Opioid dependence, uncomplicated
CPT/HCPCS: 99281; 99282

== ENCOUNTER 2021-02-25 20:09 | Inpatient (IN) | payer MEDICAID, SELFPAY ==
--- NOTE | ~2021-02-25 | CT_ITS ---
PROCEDURE: CT-GUIDED BIOPSY, KIDNEY CLINICAL INFORMATION: Chronic kidney disease. COMPARISON: None TECHNIQUE: Following explaining CT-guided kidney biopsy procedure, benefits and risk, a written consent was obtained from the patient via carpenter repair. Patient was semi prone on a CT table and preliminary CT imaging was obtained. An optimal site was selected and marked along the left flank. The marked site was cleaned and draped in the usual sterile manner. 1% lidocaine was injected at puncture site. An 18-gauge needle was then inserted from the skin incision to the perinephric space of left kidney. Coaxially a 15-gauge long 18-gauge biopsy gun was inserted and a 3-pass biopsy was performed through the lower pole left kidney. Adequate tissue was obtained. There was no bleeding identified during and after the procedure. Sterile Band-Aid applied postprocedure. Patient tolerated procedure extremely well. Conscious sedation was given during the patient and patient was monitored by IR nursing and the consulting physician. This CT examination was performed using dose optimization techniques as appropriate, variously including the following: *Automated exposure control *Adjustment of mA and/or kV according to patient size (this includes techniques or standardized protocols for targeted exams where dose is matched to indication/reason for exam; i.e. extremities or head) *Use of iterative reconstruction technique DLP: 322 mGy-cm FINDINGS: On preliminary ultrasound imaging there is symmetrical-appearing both kidneys. There is a moderate-sized cyst in the upper pole left kidney. Successful CT fluoroscopy-guided 3-pass left kidney core biopsy performed. Tissue collected was sent in cold pack to pathology. CT/CT biopsy renal RT IMPRESSION: Successful CT fluoroscopy-guided left kidney core biopsy performed. No immediate complications.
--- NOTE | ~2021-02-25 | CT_ITS ---
EXAMINATION: CT ABDOMEN AND PELVIS WITHOUT CONTRAST CLINICAL INFORMATION: Constipation. Abdominal distention. Rule out small bowel obstruction. COMPARISON: CT abdomen/pelvis dated from 04/03/2016. TECHNIQUE: Multidetector volumetric imaging was performed from the superior aspect of the liver through the pubic symphysis. Sagittal and coronal reformatted images were obtained on the technologist's workstation. This CT examination was performed using dose optimization techniques as appropriate, variously including the following: *Automated exposure control *Adjustment of mA and/or kV according to patient size (this includes techniques or standardized protocols for targeted exams where dose is matched to indication/reason for exam; i.e. extremities or head) *Use of iterative reconstruction technique DLP: 735 mGy-cm FINDINGS: LUNG BASES: Dependent atelectasis. No focal consolidation or pleural effusion. Mild cardiomegaly with trace amount of pericardial fluid. LIVER, GALLBLADDER, AND BILIARY TREE: The liver is normal in size, shape, and attenuation. No focal hepatic lesion or biliary ductal dilatation is present. Cholecystectomy. PANCREAS: There is a tiny hypodense focus in the pancreatic head (29:2) which could be volume averaging. The main pancreatic duct is nondilated. No peripancreatic free fluid and fat stranding. SPLEEN: Unremarkable. ADRENAL GLANDS: Unchanged prominence of both adrenal glands. No discrete nodularities. KIDNEYS AND URETERS: There is a 4.9 cm simple cyst in the upper pole of left kidney. There is mild asymmetric dilatation of the renal pelvis and proximal ureter, similar to slightly increased since 2016 without evidence of obstructing stones or lesions. There is mild bilateral perinephric fat stranding. No renal calculi. BLADDER: Underdistended with a balloon and Dixon placed. No perivesical fat stranding. GASTROINTESTINAL TRACT: Small hiatal hernia. The stomach and the small bowel are nondilated. Normal appendix. No pericolic inflammatory changes. Moderate stool burden in the proximal colon. No bowel obstruction. ABDOMINAL WALL: Fat-containing umbilical hernia with mild surrounding skin thickening. Dependent anasarca in the lower back and gluteal regions.. LYMPH NODES: No lymphadenopathy by size criteria. Very minimal mesenteric haziness in the upper abdomen of uncertain clinical significance. VASCULAR: Scattered atherosclerotic disease. The abdominal aorta is of normal diameter. PELVIC VISCERA: Unremarkable. OSSEOUS STRUCTURES: New deformity at the superior endplate of L3 with associated sclerosis and vacuum disc phenomena, likely degenerative. Multilevel thoracal lumbar spondylosis. CT/CT abdomen pelvis wo con IMPRESSION: No active inflammatory bowel changes or bowel obstruction. Small hiatal hernia. There is a tiny hypodense focus in the pancreatic head which could be related with volume averaging. However, a dilated side branch or an underlying lesion is difficult to exclude. Recommend further evaluation with a nonemergent abdominal MR if clinically indicated. Mild asymmetric hydronephrosis is similar to minimally increased since 2016 and could be related with peristalsis. No obstructive calculi or lesions are identified. Fat-containing umbilical hernia with some minimal associated skin thickening, correlate for signs of infection/erythema. New since 2016 is a compression deformity at the superior endplate of L3. There are associated degenerative changes at this site and this is likely also degenerative. Correlate clinically for tenderness at this site. Dependent anasarca.
--- NOTE | ~2021-02-25 | US_ITS ---
EXAMINATION: RENAL DOPPLER EXAM CLINICAL INFORMATION: Acute kidney insufficiency. Hypertension. COMPARISON: Renal ultrasound from yesterday TECHNIQUE: Grayscale and color Doppler imaging of the aorta and renal arteries performed including waveform spectral analysis. FINDINGS: Exam is nondiagnostic. The aorta and renal arteries are not well visualized due to body habitus and bowel gas. The midabdominal aorta is not visualized. The proximal and mid right renal artery is not visualized. The right distal renal artery is visualized with peak velocity measuring 49 cm/s. Resistive indices in the segmental renal arteries in the mid and upper pole of the right kidney measured 0.7-0.8. The right renal vein is not seen. The left proximal and mid renal artery are not seen. The left distal renal artery peak systolic velocity measures 73 cm/s. Resistive indices in the segmental renal arteries in the left kidney measures 0.8-0.9. The left renal vein is not visualized. US/US renal doppler IMPRESSION: Nondiagnostic exam.
--- NOTE | ~2021-02-25 | US_ITS ---
EXAMINATION: US RETROPERITONEAL LIMITED (RENAL ONLY) CLINICAL INFORMATION: Acute kidney insufficiency. COMPARISON: CT of the abdomen and pelvis 02/25/2021 and renal Doppler exam 10/26/2020 TECHNIQUE: Grayscale and color imaging of the kidneys. Exam is very limited due to patient body habitus. FINDINGS: RIGHT KIDNEY: 11 x 4.8 x 4.3 cm (SAG x AP x TRV). The kidney is normal in size, contour, and echogenicity. Renal cortical thickness is normal. No calculi or focal parenchymal lesions. No hydronephrosis. LEFT KIDNEY: 10.2 x 4.2 x 4.2 cm (SAG x AP x TRV). The kidney is normal in size, contour, and echogenicity. Renal cortical thickness is normal. There is a 4.8 x 4.8 x 4.2 cm cyst in the upper pole. No calculi. No hydronephrosis. Exam is very limited. 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 US/US renal BI IMPRESSION: Very limited exam. No hydronephrosis. Left renal cyst.
--- NOTE | ~2021-02-25 | IR_ITS ---
PROCEDURE: IR INSERTION OF TUNNEL CATHETER CLINICAL INFORMATION: Renal failure. COMPARISON: None TECHNIQUE: Procedure and risks and benefits including bleeding, infection and pneumothorax were discussed with the patient and informed consent was obtained. All elements of maximal sterile barrier technique followed including use of cap, mask, sterile gown, sterile gloves, a sterile full body drape and hand hygiene. Also followed skin preparation with 2% chlorhexidine for cutaneous antisepsis, and sterile ultrasound preparation with sterile gel and probe cover when applicable. The right neck and chest were prepped and draped in the usual sterile fashion. The skin and soft tissues of the right lower neck were anesthetized with 1% lidocaine plain. Using ultrasound guidance and a 5-Mauritian micropuncture system, right internal jugular vein access was obtained. Over an .018 wire, a 5-Mauritian dilator was positioned in the SVC. The skin and soft tissues of the right upper anterior chest were anesthetized with 1% lidocaine plain. A small incision was made. A subcutaneous tunnel from the chest to the neck incision was anesthetized with 1% lidocaine plain. Using a tunneler, a 14.5-Mauritian 23 cm in length Palindrome permacath was tunneled from the chest to the neck incision. An .035 guidewire was advanced through the 5-Mauritian dilator into the IVC. Following serial dilatation, a 5-Mauritian dilator was exchanged for a 15-Mauritian peel-away sheath. The Dialysis catheter was advanced centrally through the peel-away sheath. The neck incision was closed using a 4-0 subcuticular suture. The chest incision was closed using a 4-0 absorbable pursestring suture. There was some oozing at the chest site, and manual pressure was held. Gelfoam was applied underneath the dressing. Real-time ultrasound guidance was used to document vein patency and for needle entry. A formal ultrasound picture was recorded. Fluoroscopy time: 0.9 minutes. Patient dose: 167 mg/cm2. Sedation time: 31 minutes. The patient received Versed 1 mg and fentanyl 75 mcg intravenously during the procedure. FINDINGS: There is a right internal jugular permacath with tip projecting over the cavoatrial junction. IR/IR cvc insert central tunnel IMPRESSION: Right internal jugular 14.5-Mauritian 23 cm in length permacath placement.
[2021-02-25 20:17] VITALS: BP 190/84; PULSE 88; O2SAT 99
[2021-02-25 20:21] VITALS: BP 205/82; PULSE 85; RESP 19; TEMP 36.8; O2SAT 100; BMI 37.5
--- NOTE | 2021-02-25 20:21 | ED.ABDPAIN ---
HPI - Abdominal Pain General Chief Complaint: Abdominal Pain Stated Complaint: abd pain Time Seen by Provider: 02/25/21 20:21 Source: patient and EMS Mode of arrival: EMS Limitations: no limitations History of Present Illness MD elicited complaint: abdominal pain Pertinent past history: constipation Onset (ago): day(s) (6) Pain Consistency: constant Location: diffuse Severity: severe Quality: stabbing Radiation: none Migration to: no migration Exacerbating factors: nothing Relieving factors: nothing Context: history of similar episodes Associated symptoms: constipation Treatments prior to arrival: other (tried OTC stool medications ?miralax) Related Data Home Medications Medication Instructions Recorded Confirmed amlodipine 5 mg tablet 5 mg PO BEDTIME 10/22/20 02/25/21 aspirin 81 mg tablet,delayed 81 mg PO QAM 10/22/20 02/25/21 release buprenorphine 8 mg-naloxone 2 mg 1 strip SUBLINGUAL BID 10/22/20 02/25/21 sublingual film (Suboxone) clonidine HCl 0.1 mg tablet 0.1 mg PO BID 10/22/20 02/25/21 diclofenac sodium 1 % topical gel 2 g TOPICAL QID 10/22/20 02/25/21 diltiazem HCl 180 mg 180 mg PO QAM 10/22/20 02/25/21 capsule,extended release 24 hr docusate sodium 100 mg capsule 1 - 2 cap PO BEDTIME PRN 10/22/20 02/25/21 escitalopram oxalate 5 mg tablet 5 mg PO QAM 10/22/20 02/25/21 hydralazine 25 mg tablet 25 mg PO TID 10/22/20 02/25/21 insulin glargine 100 unit/mL (3 24 unit SUBCUT DAILY 10/22/20 02/25/21 mL) subcutaneous pen (Lantus Solostar U-100 Insulin) insulin lispro 100 unit/mL 4 - 12 unit SUBCUT TIDAC 10/22/20 02/25/21 subcutaneous pen (Humalog KwikPen (U-100) Insulin) mirtazapine 15 mg tablet 15 mg PO BEDTIME 10/22/20 02/25/21 multivitamin (One Daily 1 tab PO QAM 10/22/20 02/25/21 Multivitamin) tiotropium bromide 18 mcg capsule 1 cap INHALATION DAILY 10/22/20 02/25/21 with inhalation device (Spiriva with HandiHaler) trazodone 100 mg tablet 1 - 2 tab PO BEDTIME 10/22/20 02/25/21 albuterol sulfate 1 amp INHALATION TID PRN 02/25/21 02/25/21 olanzapine 10 mg tablet 1 tab PO BEDTIME 02/25/21 02/25/21 Previous Rx's Medication Instructions Recorded furosemide 40 mg tablet (Lasix) 40 mg PO DAILY #20 tab 11/02/20 Allergies Allergy/AdvReac Type Severity Reaction Status Date / Time No Known Allergies Allergy Mild NOT Verified 12/14/20 11:50 APPLICABLE Review of Systems Review of Systems Constitutional : No Weight loss, No Fever, No Chills ENT/Mouth : No sore throat, No Rhinorrhea Eyes: No Swelling, No Redness Cardiovascular : No Chest Pain, No SOB, NoEdema Respiratory : No Cough, No Sputum, No Wheezing Gastrointestinal : Positive Nausea, no Vomiting, no Diarrhea, positive abdominal Pain, No Hematochezia, No Melena, pos constipation, was straining and saw scant blood on toilet paper a couple of times Genitourinary : No Dysuria, No Urinary Frequency, No Hematuria, No Urgency Musculoskeletal : No joint pain, No Myalgias, No Joint Swelling Skin : No Skin Lesions, No rash Neuro : No Weakness, No Numbness, No Dizziness, No Headache Psych : No Anxiety/Panic, No Depression Heme/Lymph: No Bruising, No Lymphadenopathy Endocrine : No Polyuria, No Polydipsia All other systems reviewed and are negative. Physical Exam Vital Signs: Vital Signs: Last Vital Signs Temp 98.2 F 02/25/21 20:21 Pulse 80 02/25/21 21:47 Resp 16 02/25/21 21:47 BP 176/77 H 02/25/21 21:47 Pulse Ox 96 02/25/21 21:47 Body Mass Index 37.5 Appearance: Alert. Oriented X3. No acute distress. Eyes: Pupils equal, round and reactive to light. ENT: Pharynx normal. Neck: Normal inspection. Neck supple. CVS: Normal heart rate and rhythm. Pulses normal. Respiratory: No respiratory distress. Breath sounds normal. Abdomen: distended quiet bowel sounds, diffuse ttp no rebound Rectal: ext hemorrhoids no bleeding, no impaction Skin: Skin warm and dry. Normal skin color. Normal skin turgor. Extremities: 1+ pitting LE edema lower legs Neuro: Oriented X 3. No motor deficit. No sensory deficit. Course Course Course Narrative: K stable, no obstruction, making 800cc of urine, plan to admit for further workup MDM - Abdominal Pain MDM Narrative Medical decision making narrative: 65 yo female with hx of dCHF, opiate abuse on suboxone, HTN, constipation here with c/o 6 days of abdominal pain and constipation though she is passing gas and has not vomited. At this time will need labs, IV medications, CT scan for obstruction Lab Data Result diagrams: 02/25/21 20:51 02/25/21 20:51 Labs: Lab Results 02/25/21 02/25/21 02/25/21 Range/Units 20:50 20:51 20:51 WBC 11.3 H (4.8-10.8) X10*3/uL RBC 3.09 L (4.20-5.50) X10*6/uL Hgb 8.8 L D (12.0-16.0) g/dl Hct 26.5 L D (37-47) % MCV 85.8 (80-98) fL MCH 28.5 (27.0-33.0) pg MCHC 33.2 (31.0-35.0) g/dl RDW 14.4 (11.0-16.0) % Plt Count 233 (160-400) X10*3/uL MPV 9.5 (9.4-12.3) fL Immature Gran % (Auto) 0.5 H (0.0-0.4) % Neut % (Auto) 73.8 H (45-73) % Lymph % (Auto) 16.7 L (20-40) % Stone % (Auto) 5.9 (2-11) % Eos % (Auto) 2.8 (0-4) % Baso % (Auto) 0.3 (0-2) % Lymph # (Auto) 1.9 (1.2-4.9) X10*3/uL Stone # (Auto) 0.7 (0.1-1.2) X10*3/uL Eos # (Auto) 0.3 (0.0-0.4) X10*3/uL Baso # (Auto) 0.0 (0.0-0.2) X10*3/uL Abs Immat Gran (auto) 0.06 H (0.00-0.03) X10*3/uL Absolute Neuts (auto) 8.3 (2.0-8.3) X10*3/uL Absolute Nucleated RBC 0.000 (0.0-0.012) X10*3/uL Nucleated RBC % (auto) 0.0 (0.0-0.2) /100WBC Sodium 138 (135-145) mmol/L Potassium 3.5 (3.3-5.1) mmol/L Chloride 103 (96-108) mmol/L Carbon Dioxide 19 L (22-29) mmol/L Anion Gap 20 (12-20) BUN 74 H D (9-16) mg/dL Creatinine 9.85 H* (0.5-1.4) mg/dL Estim Creat Clear Calc 5.9 Estimated GFR 4 Random Glucose 169 H (60-115) mg/dL Lactic Acid 0.7 (0.5-2.0) mmol/L Calcium 8.1 L (8.4-10.2) mg/dL Magnesium 2.4 (1.6-2.6) mg/dL Total Bilirubin 0.2 (0.0-1.0) mg/dL Direct Bilirubin < 0.2 (0.0-0.5) mg/dL AST 14 (5-31) U/L ALT 12 (0-31) U/L Alkaline Phosphatase 156 H (39-117) U/L Troponin I High Sens (<3.5-17.0) ng/L Total Protein 6.3 L (6.5-8.0) g/dL Albumin 3.4 L (3.5-5.0) g/dL Lipase 29 (8-78) U/L Urine Color Urine Appearance Urine pH (5.0-8.0) Ur Specific [place] (1.005-1.025) Urine Protein (NEG-TRACE) MG/DL Urine Glucose (UA) (NEG) MG/DL Urine Ketones (NEG) MG/DL Urine Blood (NEG) Urine Nitrite (NEG) Ur Leukocyte Esterase (NEG) Urine RBC (0) /HPF Urine WBC (0-4) /HPF Ur Squamous Epith Cells /LPF Amorphous Sediment /LPF Urine Bacteria /LPF Stool Occult Blood (NEGATIVE) COVID-19 (KRYSTINA) (Negative) COVID-19 [facility] Blood Type Antibody Screen 02/25/21 02/25/21 02/25/21 Range/Units 20:51 20:51 20:51 WBC (4.8-10.8) X10*3/uL RBC (4.20-5.50) X10*6/uL Hgb (12.0-16.0) g/dl Hct (37-47) % MCV (80-98) fL MCH (27.0-33.0) pg MCHC (31.0-35.0) g/dl RDW (11.0-16.0) % Plt Count (160-400) X10*3/uL MPV (9.4-12.3) fL Immature Gran % (Auto) (0.0-0.4) % Neut % (Auto) (45-73) % Lymph % (Auto) (20-40) % Stone % (Auto) (2-11) % Eos % (Auto) (0-4) % Baso % (Auto) (0-2) % Lymph # (Auto) (1.2-4.9) X10*3/uL Stone # (Auto) (0.1-1.2) X10*3/uL Eos # (Auto) (0.0-0.4) X10*3/uL Baso # (Auto) (0.0-0.2) X10*3/uL Abs Immat Gran (auto) (0.00-0.03) X10*3/uL Absolute Neuts (auto) (2.0-8.3) X10*3/uL Absolute Nucleated RBC (0.0-0.012) X10*3/uL Nucleated RBC % (auto) (0.0-0.2) /100WBC Sodium (135-145) mmol/L Potassium (3.3-5.1) mmol/L Chloride (96-108) mmol/L Carbon Dioxide (22-29) mmol/L Anion Gap (12-20) BUN (9-16) mg/dL Creatinine (0.5-1.4) mg/dL Estim Creat Clear Calc Estimated GFR Random Glucose (60-115) mg/dL Lactic Acid (0.5-2.0) mmol/L Calcium (8.4-10.2) mg/dL Magnesium (1.6-2.6) mg/dL Total Bilirubin (0.0-1.0) mg/dL Direct Bilirubin (0.0-0.5) mg/dL AST (5-31) U/L ALT (0-31) U/L Alkaline Phosphatase (39-117) U/L Troponin I High Sens 57.4 H* D (<3.5-17.0) ng/L Total Protein (6.5-8.0) g/dL Albumin (3.5-5.0) g/dL Lipase (8-78) U/L Urine Color STRAW Urine Appearance CLEAR Urine pH 6.5 (5.0-8.0) Ur Specific [place] 1.015 (1.005-1.025) Urine Protein 2+ H (NEG-TRACE) MG/DL Urine Glucose (UA) 250 H (NEG) MG/DL Urine Ketones NEG (NEG) MG/DL Urine Blood 1+ H (NEG) Urine Nitrite NEG (NEG) Ur Leukocyte Esterase NEG (NEG) Urine RBC 5-9 H (0) /HPF Urine WBC 1-4 (0-4) /HPF Ur Squamous Epith Cells 2+ /LPF Amorphous Sediment TRACE /LPF Urine Bacteria TRACE /LPF Stool Occult Blood (NEGATIVE) COVID-19 (KRYSTINA) Negative (Negative) COVID-19 Clin Com See Note Blood Type Antibody Screen 02/25/21 02/25/21 Range/Units 21:27 23:19 WBC (4.8-10.8) X10*3/uL RBC (4.20-5.50) X10*6/uL Hgb (12.0-16.0) g/dl Hct (37-47) % MCV (80-98) fL MCH (27.0-33.0) pg MCHC (31.0-35.0) g/dl RDW (11.0-16.0) % Plt Count (160-400) X10*3/uL MPV (9.4-12.3) fL Immature Gran % (Auto) (0.0-0.4) % Neut % (Auto) (45-73) % Lymph % (Auto) (20-40) % Stone % (Auto) (2-11) % Eos % (Auto) (0-4) % Baso % (Auto) (0-2) % Lymph # (Auto) (1.2-4.9) X10*3/uL Stone # (Auto) (0.1-1.2) X10*3/uL Eos # (Auto) (0.0-0.4) X10*3/uL Baso # (Auto) (0.0-0.2) X10*3/uL Abs Immat Gran (auto) (0.00-0.03) X10*3/uL Absolute Neuts (auto) (2.0-8.3) X10*3/uL Absolute Nucleated RBC (0.0-0.012) X10*3/uL Nucleated RBC % (auto) (0.0-0.2) /100WBC Sodium (135-145) mmol/L Potassium (3.3-5.1) mmol/L Chloride (96-108) mmol/L Carbon Dioxide (22-29) mmol/L Anion Gap (12-20) BUN (9-16) mg/dL Creatinine (0.5-1.4) mg/dL Estim Creat Clear Calc Estimated GFR Random Glucose (60-115) mg/dL Lactic Acid (0.5-2.0) mmol/L Calcium (8.4-10.2) mg/dL Magnesium (1.6-2.6) mg/dL Total Bilirubin (0.0-1.0) mg/dL Direct Bilirubin (0.0-0.5) mg/dL AST (5-31) U/L ALT (0-31) U/L Alkaline Phosphatase (39-117) U/L Troponin I High Sens (<3.5-17.0) ng/L Total Protein (6.5-8.0) g/dL Albumin (3.5-5.0) g/dL Lipase (8-78) U/L Urine Color Urine Appearance Urine pH (5.0-8.0) Ur Specific [place] (1.005-1.025) Urine Protein (NEG-TRACE) MG/DL Urine Glucose (UA) (NEG) MG/DL Urine Ketones (NEG) MG/DL Urine Blood (NEG) Urine Nitrite (NEG) Ur Leukocyte Esterase (NEG) Urine RBC (0) /HPF Urine WBC (0-4) /HPF Ur Squamous Epith Cells /LPF Amorphous Sediment /LPF Urine Bacteria /LPF Stool Occult Blood NEGATIVE (NEGATIVE) COVID-19 (KRYSTINA) (Negative) COVID-19 Clin Com Blood Type O Positive Antibody Screen NEGATIVE ECG Data Attestation: I personally reviewed and interpreted this ECG as follows: ECG interpretation date: 02/25/21 ECG interpretation time: 20:43 Interpretation: Rate: 86 Rhythm: NSR [place]: left LVH Normal P waves. Normal FRIEDA. Normal QRS complex. ST T wave : normal no MELLISA qTC: normal prior studies: no acute ischemia The study has been interpreted contemporaneously by me. . Discharge Plan Discharge Clinical Impression: Acute kidney injury superimposed on chronic kidney disease, Constipation, Abdominal pain, HTN (hypertension), Anemia Patient Disposition: Admitted As Inpatient Prescriptions: No Action furosemide [Lasix] 40 mg tablet 40 mg PO DAILY Qty: 20 RF: 0 trazodone 100 mg tablet 1 - 2 tab PO BEDTIME RF: 0 docusate sodium 100 mg capsule 1 - 2 cap PO BEDTIME PRN (Reason: constipation) RF: 0 mirtazapine 15 mg tablet 15 mg PO BEDTIME RF: 0 diclofenac sodium 1 % gel 2 g topical QID RF: 0 buprenorphine-naloxone [Suboxone] 8-2 mg film 1 strip sublingual BID RF: 0 multivitamin [One Daily Multivitamin] Tablet 1 tab PO QAM RF: 0 clonidine HCl 0.1 mg tablet 0.1 mg PO BID RF: 0 diltiazem HCl 180 mg capsule,extended release 24hr 180 mg PO QAM RF: 0 hydralazine 25 mg tablet 25 mg PO TID RF: 0 amlodipine 5 mg tablet 5 mg PO BEDTIME RF: 0 aspirin 81 mg tablet,delayed release (DR/EC) 81 mg PO QAM RF: 0 insulin lispro [Humalog KwikPen Insulin] 100 unit/mL insulin pen 4 - 12 unit subcut TIDAC RF: 0 escitalopram oxalate 5 mg tablet 5 mg PO QAM RF: 0 Spiriva with HandiHaler 18 mcg capsule, w/inhalation device 1 cap inhalation DAILY RF: 0 Lantus Solostar U-100 Insulin 100 unit/mL (3 mL) insulin pen 24 unit subcut DAILY RF: 0 olanzapine 10 mg tablet 1 tab PO BEDTIME RF: 0 albuterol sulfate 2.5 mg /3 mL (0.083 %) solution for nebulization 1 amp inhalation TID PRN (Reason: Wheezing) RF: 0 PMFSH Past Medical History Attestation statement: The following information was validated with the patient. Medical History Diabetes mellitus Diastolic congestive heart failure Hypertension Social History Social History Household Members: None Housing: Apartment Do you presently have visiting nurse or other home services: Yes Patient Tobacco Use Status: Current everyday Tobacco user Tobacco use type: Cigarette Cigarette Packs Per Day: 1 Cigarettes Per Day: 20.0 Second Hand Smoke Exposure: No Substance Use Type: Heroin Advance Directives: No Advance Directives Information Provided: No Patient : No service: No Current occupational status: unemployed
--- NOTE | 2021-02-25 20:29 | ECG_ITS ---
Test Reason : ABD PAIN Blood Pressure : / mmHG Vent. Rate : 086 BPM Atrial Rate : 086 BPM P-R Int : 170 ms QRS Dur : 088 ms QT Int : 402 ms P-R-T Axes : 060 -11 025 degrees QTc Int : 481 ms Normal sinus rhythm Possible Left atrial enlargement Left ventricular hypertrophy Abnormal ECG When compared with ECG of 02-NOV-2020 15:28, No significant change was found Referred By: Sirena Vallejo Electronically Signed By:CHRISTY AN MD
--- NOTE | 2021-02-25 20:32 | PC.NURSE ---
at bedside for primary eval.
[2021-02-25 20:57] LABS: MANUAL DIFF FLAG NO
[2021-02-25 20:59] LABS: Appearance Urine CLEAR; Basophils Percent Auto 0.3 % (0-2); Color Urine STRAW; Eosinophils Absolute Auto 0.3 X10*3/uL (0.0-0.4); Eosinophils Percent Auto 2.8 % (0-4); Glucose Urine UA 250 MG/DL (NEG); Hematocrit 26.5 % (37-47); Hemoglobin 8.8 g/dl (12.0-16.0); Imm Gran Abs Auto 0.06 X10*3/uL (0.00-0.03); Imm Gran Pct Auto 0.5 % (0.0-0.4); Leukocyte Esterase Urine NEG (NEG); Lymphocytes Absolute Auto 1.9 X10*3/uL (1.2-4.9); Lymphocytes Percent Auto 16.7 % (20-40); Mean Corpuscular HGB Conc 33.2 g/dl (31.0-35.0); Mean Corpuscular Hemoglobin 28.5 pg (27.0-33.0); Mean Corpuscular Volume 85.8 fL (80-98); Mean Platelet Volume 9.5 fL (9.4-12.3); Monocytes Absolute Auto 0.7 X10*3/uL (0.1-1.2); Monocytes Percent Auto 5.9 % (2-11); Neutrophils Absolute Auto 8.3 X10*3/uL (2.0-8.3); Neutrophils Percent Auto 73.8 % (45-73); Nitrite Urine NEG (NEG); PH 6.5 (5.0-8.0); Platelet Count 233 X10*3/uL (160-400); Red Blood Count 3.09 X10*6/uL (4.20-5.50); Red Cell Distribution Width 14.4 % (11.0-16.0); Specific Gravity - Urine 1.015 (1.005-1.025); UACC Culture Trigger NO; Urine Blood 1+ (NEG); Urine Ketones NEG (NEG); Urine Protein 2+ MG/DL (NEG-TRACE); White Blood Count 11.3 X10*3/uL (4.8-10.8)
--- NOTE | 2021-02-25 21:00 | PC.NURSE ---
news technical director at bedside for labs and EKG.
[2021-02-25 21:06] LABS: Squamous Epithelial Cell Urine 2+ /LPF
[2021-02-25] MEDS: LORazepam 2 MG/ML VIAL 1 MG IVPUSH (21:06)
[2021-02-25 21:08] LABS: Amorphous Sediment Urine TRACE /LPF; Bacteria Urine TRACE /LPF
[2021-02-25 21:13] LABS: COVID-19 Test Negative (Negative)
[2021-02-25 21:14] LABS: Lactic Acid 0.7 mmol/L (0.5-2.0)
[2021-02-25 21:29] LABS: Alanine Aminotransferase 12 U/L (0-31); Albumin Level 3.4 g/dL (3.5-5.0); Alkaline Phosphatase 156 U/L (39-117); Anion Gap 20 (12-20); Aspartate Amino Transferase 14 U/L (5-31); Bilirubin Direct < 0.2 mg/dL (0.0-0.5); Bilirubin Total 0.2 mg/dL (0.0-1.0); Blood Urea Nitrogen 74 mg/dL (9-16); Calcium 8.1 mg/dL (8.4-10.2); Carbon Dioxide 19 mmol/L (22-29); Chloride 103 mmol/L (96-108); Creatinine Clr Calc Pharmacy 5.9; Estimated Glomerular Filt Rate 4; Glucose Random 169 mg/dL (60-115); Lipase 29 U/L (8-78); Magnesium 2.4 mg/dL (1.6-2.6); Potassium 3.5 mmol/L (3.3-5.1); Sodium 138 mmol/L (135-145); Total Protein 6.3 g/dL (6.5-8.0)
[2021-02-25 21:40] LABS: Troponin-I High Sensitivity 57.4 ng/L (<3.5-17.0)
[2021-02-25] MEDS: 0.9 % Sodium Chloride 1,000 ML 999 ML IVCONT (21:45)
[2021-02-25 21:47] VITALS: BP 176/77; PULSE 80; RESP 16; O2SAT 96
--- NOTE | 2021-02-25 21:55 | PC.NURSE ---
soil conservation technician at bedside for sánchez placement, pt tolerating the procedure well. Pt requesting food/drink, advised that she is unable to eat/drink until the CT results are complete. VSS at this time.
--- NOTE | 2021-02-25 21:59 | PC.NURSE ---
Pt off to CT at this time on hospital bed.
--- NOTE | 2021-02-25 22:11 | PC.NURSE ---
PT's son called for update. PT consented to disclose information to son. Son would like to be updated on care. victor - [phone].
--- NOTE | 2021-02-25 23:20 | PC.NURSE ---
at bed side for rectal exam. This RN at bed side to mumps developer. OBS obtained and sent.
[2021-02-25 23:26] LABS: OBS Int Ctl Valid YES; OBS1 NEGATIVE (NEGATIVE)
--- NOTE | 2021-02-25 23:34 | P.HPHOSP_ITS ---
History of Present Illness Date of Service: 02/26/21 Chief Complaint: Abdominal pain This is a 65-year-old female past medical history of diabetes, hypertension, chronic constipation, CHF, CKD who presents to the hospital with complaints of abdominal pain. Patient reports that she has not moved her bowels for the past 6 days, developed abdominal pain for the past 3-4 days, denies any nausea or vomiting, pain is 10/10, improved to 6/10 on arrival to the ED. Feels pressure, nonradiating, constant, relieved by the pain medication received in the ED no exacerbating factors. Denies any headache or change in vision, no shortness of breath, no cough, no urinary symptoms. Reports chronic lower extremity edema that has not worsened. Denies any numbness tingling or weakness. On arrival to the ED patient hemodynamically stable with no significant abnormal vitals except for a slightly elevated blood pressure For WBC count of 11.3, hemoglobin 8.8 which is lower than her usual of 11.4 in October2020 , hematocrit of 26.5, in BUN of 74, creatinine of 9.85 with a baseline around 3.0, alk-phos of 156, troponin of 57 with no chest pain. UA that is positive for protein, glucose, negative for leukocyte Estrace or nitrites. COVID-[address] pelvic abdomen shows no active inflammatory bowel changes or bowel obstruction, there is a tiny 100 dense focus in the pancreatic head which could be related with volume of bridging. A dilated side branch or an underlying lesion is difficult to exclude. Mild asymmetric hydronephrosis similar to 2016 and could be related to peristalsis. No obstructive calculi or lesion is identified Given the significant elevation of creatinine patient will be admitted for fu rther management Review of Systems Review of Systems: Yes all other systems are reviewed and are negative [facility] Medical History (Updated 02/26/21 @ 05:37 by Robert Torres MD) CHF (congestive heart failure) Constipation Diabetes mellitus Diastolic congestive heart failure Hypertension Pertinent family history: Denies any family history Surgical History No pertinent past surgical history Social History Household Members: None Housing: Apartment Do you presently have visiting nurse or other home services: Yes Patient Tobacco Use Status: Current everyday Tobacco user Tobacco use type: Cigarette Cigarette Packs Per Day: 1 Cigarettes Per Day: 20.0 Second Hand Smoke Exposure: No Substance Use Type: Heroin Advance Directives: No Advance Directives Information Provided: No Patient : No service: No Current occupational status: unemployed Meds Allergies Allergy/AdvReac Type Severity Reaction Status Date / Time No Known Allergies Allergy Mild NOT Verified 12/14/20 11:50 APPLICABLE Active Medications: Current Medications Pharmacy Consult (Consult Rx Perform Med Rec) 1 each MISCELLANE ONCE PRN PRN Reason: Consult order Home Medications Medication Instructions Recorded Confirmed Last Taken Type amlodipine 5 mg tablet 5 mg PO BEDTIME 10/22/20 02/25/21 Unknown History aspirin 81 mg tablet,delayed 81 mg PO QAM 10/22/20 02/25/21 Unknown History release buprenorphine 8 mg-naloxone 2 mg 1 strip SUBLINGUAL BID 10/22/20 02/25/21 Unknown History sublingual film (Suboxone) clonidine HCl 0.1 mg tablet 0.1 mg PO BID 10/22/20 02/25/21 Unknown History diclofenac sodium 1 % topical gel 2 g TOPICAL QID 10/22/20 02/25/21 Unknown History diltiazem HCl 180 mg 180 mg PO QAM 10/22/20 02/25/21 Unknown History capsule,extended release 24 hr docusate sodium 100 mg capsule 1 - 2 cap PO BEDTIME PRN 10/22/20 02/25/21 Unknown History escitalopram oxalate 5 mg tablet 5 mg PO QAM 10/22/20 02/25/21 Unknown History hydralazine 25 mg tablet 25 mg PO TID 10/22/20 02/25/21 Unknown History insulin glargine 100 unit/mL (3 24 unit SUBCUT DAILY 10/22/20 02/25/21 Unknown History mL) subcutaneous pen (Lantus Solostar U-100 Insulin) insulin lispro 100 unit/mL 4 - 12 unit SUBCUT TIDAC 10/22/20 02/25/21 Unknown History subcutaneous pen (Humalog KwikPen (U-100) Insulin) mirtazapine 15 mg tablet 15 mg PO BEDTIME 10/22/20 02/25/21 Unknown History multivitamin (One Daily 1 tab PO QAM 10/22/20 02/25/21 Unknown History Multivitamin) tiotropium bromide 18 mcg capsule 1 cap INHALATION DAILY 10/22/20 02/25/21 Unknown History with inhalation device (Spiriva with HandiHaler) trazodone 100 mg tablet 1 - 2 tab PO BEDTIME 10/22/20 02/25/21 Unknown History albuterol sulfate 1 amp INHALATION TID PRN 02/25/21 02/25/21 Unknown History olanzapine 10 mg tablet 1 tab PO BEDTIME 02/25/21 02/25/21 Unknown History Physical Exam Vital Signs and Narrative: Vital Signs: Last Vital Signs Temp 98.2 F 02/25/21 20:21 Pulse 80 02/25/21 21:47 Resp 16 02/25/21 21:47 BP 176/77 H 02/25/21 21:47 Pulse Ox 96 02/25/21 21:47 Body Mass Index 37.5 Const: General: cooperative and no acute distress Orientation/consciousness: patient oriented x3 Eyes: General: appearance normal, both eyes and all related structures Pupils: Equal, round and reactive pupils present Resp: Effort & Inspection: normal respiratory effort Auscultation: clear to auscultation bilaterally Cardio: Rate: regular rate Rhythm: regular rhythm GI: Other: Distended abdomen, diffuse mild tenderness, no rebound or guarding. Palpation (GI): Firmness to palpation present (GI) Auscultation: normal elfego wel sounds Skin: General skin exam: no rashes or lesions noted Neuro: General: patient oriented x3 Cranial nerves: Yes Equal, round and reactive pupils present Cognition (Neuro): normal cognition Extrem: General: Yes normal to inspection and Yes no pedal edema Results Labs CBC and Chem 7: 02/25/21 20:51 02/25/21 20:51 Labs: Laboratory Results - last 24 hr 02/25/21 02/25/21 02/25/21 20:50 20:51 20:51 MCV 85.8 MCH 28.5 MCHC 33.2 RDW 14.4 Plt Count 233 MPV 9.5 Immature Gran % (Auto) 0.5 H Neut % (Auto) 73.8 H Lymph % (Auto) 16.7 L [place] % (Auto) 5.9 Eos % (Auto) 2.8 Baso % (Auto) 0.3 Lymph # (Auto) 1.9 [place] # (Auto) 0.7 Eos # (Auto) 0.3 Baso # (Auto) 0.0 Abs Immat Gran (auto) 0.06 H Absolute Neuts (auto) 8.3 Absolute Nucleated RBC 0.000 Nucleated RBC % (auto) 0.0 Anion Gap 20 Estim Creat Clear Calc 5.9 Estimated GFR 4 Random Glucose 169 H Lactic Acid 0.7 Calcium 8.1 L Magnesium 2.4 Total Bilirubin 0.2 Direct Bilirubin < 0.2 AST 14 ALT 12 Alkaline Phosphatase 156 H Troponin I High Sens Total Protein 6.3 L Albumin 3.4 L Lipase 29 Urine Color Urine Appearance Urine pH Ur Specific [place] Urine Protein Urine Glucose (UA) Urine Ketones Urine Blood Urine Nitrite Ur Leukocyte Esterase Urine RBC Urine WBC Ur Squamous Epith Cells Amorphous Sediment Urine Bacteria Stool Occult Blood COVID-19 (KRYSTINA) COVID-19 [employer] Com Blood Type Antibody Screen 02/25/21 02/25/21 02/25/21 20:51 20:51 20:51 MCV MCH MCHC RDW Plt Count MPV Immature Gran % (Auto) Neut % (Auto) Lymph % (Auto) [place] % (Auto) Eos % (Auto) Baso % (Auto) Lymph # (Auto) [place] # (Auto) Eos # (Auto) Baso # (Auto) Abs Immat Gran (auto) Absolute Neuts (auto) Absolute Nucleated RBC Nucleated RBC % (auto) Anion Gap Estim Creat Clear Calc Estimated GFR Random Glucose Lactic Acid Calcium Magnesium Total Bilirubin Direct Bilirubin AST ALT Alkaline Phosphatase Troponin I High Sens 57.4 H* D Total Protein Albumin Lipase Urine Color STRAW Urine Appearance CLEAR Urine pH 6.5 Ur Specific [place] 1.015 Urine Protein 2+ H Urine Glucose (UA) 250 H Urine Ketones NEG Urine Blood 1+ H Urine Nitrite NEG Ur Leukocyte Esterase NEG Urine RBC 5-9 H Urine WBC 1-4 Ur Squamous Epith Cells 2+ Amorphous Sediment TRACE Urine Bacteria TRACE Stool Occult Blood COVID-19 (KRYSTINA) Negative COVID-19 [employer] Com See Note Blood Type Antibody Screen 02/25/21 02/25/21 21:27 23:19 MCV MCH MCHC RDW Plt Count MPV Immature Gran % (Auto) Neut % (Auto) Lymph % (Auto) [place] % (Auto) Eos % (Auto) Baso % (Auto) Lymph # (Auto) [place] # (Auto) Eos # (Auto) Baso # (Auto) Abs Immat Gran (auto) Absolute Neuts (auto) Absolute Nucleated RBC Nucleated RBC % (auto) Anion Gap Estim Creat Clear Calc Estimated GFR Random Glucose Lactic Acid Calcium Magnesium Total Bilirubin Direct Bilirubin AST ALT Alkaline Phosphatase Troponin I High Sens Total Protein Albumin Lipase Urine Color Urine Appearance Urine pH Ur Specific [place] Urine Protein Urine Glucose (UA) Urine Ketones Urine Blood Urine Nitrite Ur Leukocyte Esterase Urine RBC Urine WBC Ur Squamous Epith Cells Amorphous Sediment Urine Bacteria Stool Occult Blood NEGATIVE COVID-19 (KRYSTINA) COVID-19 Clin Com Blood Type O Positive Antibody Screen NEGATIVE ECG Interpretation: Normal sinus rhythm, no acute changes Imaging Radiologist's Impressions: Impressions Abdomen/Pelvis CT 02/25/21 20:29 IMPRESSION: No active inflammatory bowel changes or bowel obstruction. Small hiatal hernia. There is a tiny hypodense focus in the pancreatic head which could be related with volume averaging. However, a dilated side branch or an underlying lesion is difficult to exclude. Recommend further evaluation with a nonemergent abdominal MR if clinically indicated. Mild asymmetric hydronephrosis is similar to minimally increased since 2016 and could be related with peristalsis. No obstructive calculi or lesions are identified. Fat-containing umbilical hernia with some minimal associated skin thickening, correlate for signs of infection/erythema. New since 2016 is a compression deformity at the superior endplate of L3. There are associated degenerative changes at this site and this is likely also degenerative. Correlate clinically for tenderness at this site. Dependent anasarca. Assessment and Plan (1) Abdominal pain: Qualifiers: Abdominal location: unspecified location Qualified Code(s): R10.9 - Unspecified abdominal pain Status: Acute (2) Constipation: Status: Acute (3) Acute kidney injury superimposed on chronic kidney disease: Status: Acute (4) Normocytic anemia: Status: Acute 65-year-old female with past medical history of diabetes and hypertension presents to the hospital with abdominal pain found to have constipation as well as Vandana and CKD # abdominal pain - most likely secondary to VANDANA as well as significant constipation - abdominal CT negative for any significant abnormality except moderate stool burden, shows no kidney obstruction or calculi - at this time will start her on bowel regimen, - Tylenol for pain - monitor for abdominal pain resolution # VANDANA and CKD - unclear etiology - patient denies dehydration - no evidence of obstruction, no UTI, no calculi - no hyperkalemia - will start on IV fluids - nephrology consulted - avoid nephrotoxic medications # constipation - patient reports that she has not moved her bowels in 6 days - has moderate stool burden on CT abdomen - will start on milk of magnesia, MiraLax, and Colace # normocytic anemia - no melena or bright red blood per rectum - will obtain stool occult test - ferritin B12 and folic acid levels - follow CBC - threshold transfusion with hemoglobin less than 7 # diabetes - continue home insulin - add low-dose sliding scale insulin - diabetic diet # hypertension - elevated - resume home medications # CHF - no acute exacerbation - on furosemide 40 mg daily will hold in the setting of acute VANDANA DVT prophylaxis: hepairn subq Quality Stroke Does the patient have a stroke diagnosis?: No VTE Prior VTE?: No VTE Risk Level:: Medical - moderate - high VTE Device Contraindication: Treatment Not Indicated VTE Drug Contraindication: N/A - Med Ordered
[2021-02-25 23:59] LABS: Acetone, serum QL Negative (Negative)
[2021-02-26] VITALS (11 sets, daily range): BP systolic 146–198; BP diastolic 67–89; PULSE 67–82; RESP 16–20; TEMP 36.1–37.1; O2SAT 96–100; BMI 39.0
[2021-02-26] MEDS: dilTIAZem HCL CD 180 MG CAP.ER.24H PO (04:10)
[2021-02-26] MEDS: hydrALAZINE HCl 25 MG TABLET PO ×4 (04:10→20:21)
[2021-02-26] MEDS: Heparin Sodium,Porcine 5,000 UNIT/ML VIAL 5000 UNIT SUBCUT ×2 (04:11→14:54)
[2021-02-26] MEDS: cloNIDine HCL 0.1 MG TABLET PO ×3 (04:11→20:21)
[2021-02-26] MEDS: traZODone HCL 100 MG TABLET PO ×2 (04:11→20:21)
[2021-02-26] MEDS: Lactated Ringers 1,000 ML 150 ML IVCONT ×3 (04:15→23:18)
--- NOTE | 2021-02-26 04:56 | PC.NURSE ---
Report given to Cindy PICKENS on C.
[2021-02-26] MEDS: polyethylene glycoL 3350 17 GM POWD.PACK PO ×2 (05:52→08:15)
[2021-02-26] MEDS: Milk of Magnesia 30 ML ORAL.SUSP PO ×2 (05:52→08:15)
[2021-02-26 06:48] LABS: MANUAL DIFF FLAG NO
[2021-02-26 06:56] LABS: Basophils Percent Auto 0.2 % (0-2); Eosinophils Absolute Auto 0.3 X10*3/uL (0.0-0.4); Hematocrit 26.1 % (37-47); Hemoglobin 8.6 g/dl (12.0-16.0); Imm Gran Abs Auto 0.05 X10*3/uL (0.00-0.03); Imm Gran Pct Auto 0.5 % (0.0-0.4); Lymphocytes Absolute Auto 1.3 X10*3/uL (1.2-4.9); Lymphocytes Percent Auto 12.6 % (20-40); Mean Corpuscular Hemoglobin 28.4 pg (27.0-33.0); Mean Corpuscular Volume 86.1 fL (80-98); Mean Platelet Volume 9.9 fL (9.4-12.3); Monocytes Absolute Auto 0.6 X10*3/uL (0.1-1.2); Monocytes Percent Auto 5.4 % (2-11); Neutrophils Absolute Auto 8.3 X10*3/uL (2.0-8.3); Neutrophils Percent Auto 78.3 % (45-73); Platelet Count 253 X10*3/uL (160-400); Red Blood Count 3.03 X10*6/uL (4.20-5.50); Red Cell Distribution Width 14.6 % (11.0-16.0); White Blood Count 10.6 X10*3/uL (4.8-10.8)
[2021-02-26 07:24] LABS: Anion Gap 19 (12-20); Blood Urea Nitrogen 72 mg/dL (9-16); Calcium 8.1 mg/dL (8.4-10.2); Carbon Dioxide 19 mmol/L (22-29); Chloride 105 mmol/L (96-108); Creatinine Clr Calc Pharmacy 6.2; Estimated Glomerular Filt Rate 4; Glucose Random 135 mg/dL (60-115); Potassium 3.5 mmol/L (3.3-5.1); Sodium 139 mmol/L (135-145)
[2021-02-26 07:34] LABS: Glucose, Whole Blood 162 mg/dL (60-115)
[2021-02-26 07:41] LABS: Ferritin 124 ng/mL (10-250)
[2021-02-26] MEDS: Insulin Lispro 100 UNIT/ML 3 ML VIAL SUBCUT ×3 (07:45→20:22)
[2021-02-26] MEDS: Insulin Glargine,Hum.rec.anlog 100 UNIT/ML 10 ML VIAL 24 UNIT SUBCUT (08:13)
[2021-02-26] MEDS: Buprenorphine/Naloxone 8/2 mg FILM 1 FILM SUBLINGUAL ×2 (08:14→20:21)
[2021-02-26] MEDS: Aspirin Enteric Coated 81 MG TABLET.DR PO (08:15)
[2021-02-26] MEDS: Escitalopram Oxalate 5 MG TABLET PO (08:15)
[2021-02-26] MEDS: Multivitamin TABLET 1 TAB PO (08:16)
--- NOTE | 2021-02-26 08:58 | HO.PM.IMPN ---
Subjective Subjective Date of Service: 02/26/21 Interval History: Seen in follow-up for abdominal pain, VANDANA. She is feeling better this morning with the abdominal pain, abdomen remained distende back pain is significantly better Review of Systems Abdominal pain, no nausea vomiting no diarrhea no fever. Physical Exam Vital Signs: Vital Signs: Last Vital Signs Temp 97.4 F 02/26/21 07:12 Pulse 82 02/26/21 08:15 Resp 18 02/26/21 07:12 BP 170/88 H 02/26/21 08:15 Pulse Ox 96 02/26/21 07:12 Body Mass Index 39.0 General: AO X 3, no acute distress Resp: CTA bilateral CVS: S1,S2,RRR GI: +BS, some tenderness, + distention Skin: No rash Neuro: motor grossly intact Psych: appropriate affect Objective Data Active Medications Acetaminophen (Acetaminophen 325 Mg Tablet) 650 mg PO Q6H PRN PRN Reason: Pain, Mild (Pain Scale 1-3) Albuterol Sulfate (Albuterol Sulfate (0.083%) 2.5 Mg/3 Ml Vial.Mookie) 2.5 mg INHALE TID PRN PRN Reason: Wheezing Amlodipine Besylate (Amlodipine Besylate 5 Mg Tablet) 5 mg PO BEDTIME [facility]; Protocol Last Admin: 02/26/21 04:21 Dose: Not Given Documented by: LASHA Non-Admin Reason: See Note Aspirin (Aspirin Enteric Coated 81 Mg Tablet.) 81 mg PO DAILY [facility] Last Admin: 02/26/21 08:15 Dose: 81 mg Documented by: KISHOR Buprenorphine/Naloxone (Buprenorphine/Naloxone 8/2 Mg Film) 1 film SUBLINGUAL BID [facility] Last Admin: 02/26/21 08:14 Dose: 1 film Documented by: KISHOR Clonidine HCl (Clonidine Hcl 0.1 Mg Tablet) 0.1 mg PO BID [facility]; Protocol Last Admin: 02/26/21 08:15 Dose: 0.1 mg Documented by: KISHOR Dextrose (Dextrose 50 % 25 Gm/50 Ml Vial) 25 gm IVPUSH Q15M PRN; Protocol PRN Reason: per Hypoglycemia Standing Ord. Dextrose (Dextrose 50 % 25 Gm/50 Ml Vial) 25 gm IVPUSH Q15M PRN; Protocol PRN Reason: per Hypoglycemia Standing Ord. Diltiazem HCl (Diltiazem Hcl Cd 180 Mg Cap.Er.24h) 180 mg PO DAILY [facility]; Protocol Last Admin: 02/26/21 04:10 Dose: 180 mg Documented by: LASHA Docusate Sodium (Docusate Sodium 100 Mg Capsule) 100 mg PO DAILY PRN PRN Reason: Constipation Escitalopram Oxalate (Escitalopram Oxalate 5 Mg Tablet) 5 mg PO DAILY [facility] Last Admin: 02/26/21 08:15 Dose: 5 mg Documented by: KISHOR Glucose (Glucose Gel 15 Gm Gel..Gram.) 15 gm PO Q15M PRN; Protocol PRN Reason: per Hypoglycemia Standing Ord. Glucose (Glucose Gel 15 Gm Gel..Gram.) 15 gm PO Q15M PRN; Protocol PRN Reason: per Hypoglycemia Standing Ord. Heparin Sodium (Porcine) (Heparin Sodium,Porcine 5,000 Unit/Ml Vial) 5,000 unit SUBCUT Q12H [facility] Last Admin: 02/26/21 04:11 Dose: 5,000 unit Documented by: LASHA Hydralazine HCl (Hydralazine Hcl 25 Mg Tablet) 25 mg PO TID [facility]; Protocol Last Admin: 02/26/21 08:15 Dose: 25 mg Documented by: KISHOR Lactated Ringer's (Lr) 1,000 mls @ 150 mls/hr IVCONT .Q6H40M [facility] Last Admin: 02/26/21 04:15 Dose: 150 mls/hr Documented by: LASHA Insulin Glargine (Insulin Glargine,Hum.Rec.Anlog 100 Unit/Ml 10 Ml Vial) 24 unit SUBCUT DAILY [facility] Last Admin: 02/26/21 08:13 Dose: 24 unit Documented by: KISHOR Insulin Human Lispro (Insulin Lispro 100 Unit/Ml 3 Ml Vial) 0.1 - 10 unit SUBCUT QIDACHS [facility]; Protocol Last Admin: 02/26/21 08:14 Dose: 2 unit Documented by: KISHOR Insulin Human Lispro (Insulin Lispro 100 Unit/Ml 3 Ml Vial) 0.1 - 10 unit SUBCUT QIDACHS [facility]; Protocol Magnesium Hydroxide (Milk Of Magnesia 30 Ml Oral.Susp) 30 ml PO DAILY [facility] Last Admin: 02/26/21 08:15 Dose: 30 ml Documented by: KISHOR Mirtazapine (Mirtazapine 15 Mg Tablet) 15 mg PO BEDTIME [facility] Multivitamins/Vitamin C (Multivitamin Tablet) 1 tab PO DAILY [facility] Last Admin: 02/26/21 08:16 Dose: 1 tab Documented by: KISHOR Olanzapine (Olanzapine 10 Mg Tablet) 10 mg PO BEDTIME [facility] Ondansetron HCl (Ondansetron Hcl 4 Mg/2 Ml Vial) 4 mg IVPUSH Q8H PRN PRN Reason: Nausea and Vomiting Pharmacy Consult (Consult Rx Perform Med Rec) 1 each MISCELLANE ONCE PRN PRN Reason: Consult order Polyethylene Glycol (Polyethylene Glycol 3350 17 Gm Powd.Pack) 17 gm PO DAILY [facility] Last Admin: 02/26/21 08:15 Dose: 17 gm Documented by: KISHOR Tiotropium [place] (Tiotropium [place] 18 Mcg Cap.W.Dev) 1 puff INHALE DAILY [facility] Last Admin: 02/26/21 07:57 Dose: 1 puff Documented by: DRAKE Trazodone HCl (Trazodone Hcl 100 Mg Tablet) 100 - 200 mg PO BEDTIME [facility] Last Admin: 02/26/21 04:11 Dose: 100 mg Documented by: LASHA Labs CBC & Chem 7: 02/26/21 06:20 02/26/21 06:20 Labs: Laboratory Results - last 24 hr 02/25/21 02/25/21 02/25/21 20:50 20:51 20:51 MCV 85.8 MCH 28.5 MCHC 33.2 RDW 14.4 Plt Count 233 MPV 9.5 Immature Gran % (Auto) 0.5 H Neut % (Auto) 73.8 H Lymph % (Auto) 16.7 L [place] % (Auto) 5.9 Eos % (Auto) 2.8 Baso % (Auto) 0.3 Lymph # (Auto) 1.9 [place] # (Auto) 0.7 Eos # (Auto) 0.3 Baso # (Auto) 0.0 Abs Immat Gran (auto) 0.06 H Absolute Neuts (auto) 8.3 Absolute Nucleated RBC 0.000 Nucleated RBC % (auto) 0.0 Anion Gap 20 Estim Creat Clear Calc 5.9 Estimated GFR 4 POC Glucose Random Glucose 169 H Lactic Acid 0.7 Calcium 8.1 L Magnesium 2.4 Ferritin Total Bilirubin 0.2 Direct Bilirubin < 0.2 AST 14 ALT 12 Alkaline Phosphatase 156 H Troponin I High Sens Total Protein 6.3 L Albumin 3.4 L Lipase 29 Urine Color Urine Appearance Urine pH Ur Specific [place] Urine Protein Urine Glucose (UA) Urine Ketones Urine Blood Urine Nitrite Ur Leukocyte Esterase Urine RBC Urine WBC Ur Squamous Epith Cells Amorphous Sediment Urine Bacteria Stool Occult Blood Acetone, Qual Negative COVID-19 (KRYSTINA) COVID-19 Clin Com Blood Type Antibody Screen 02/25/21 02/25/21 02/25/21 20:51 20:51 20:51 MCV MCH MCHC RDW Plt Count MPV Immature Gran % (Auto) Neut % (Auto) Lymph % (Auto) [place] % (Auto) Eos % (Auto) Baso % (Auto) Lymph # (Auto) [place] # (Auto) Eos # (Auto) Baso # (Auto) Abs Immat Gran (auto) Absolute Neuts (auto) Absolute Nucleated RBC Nucleated RBC % (auto) Anion Gap Estim Creat Clear Calc Estimated GFR POC Glucose Random Glucose Lactic Acid Calcium Magnesium Ferritin Total Bilirubin Direct Bilirubin AST ALT Alkaline Phosphatase Troponin I High Sens 57.4 H* D Total Protein Albumin Lipase Urine Color STRAW Urine Appearance CLEAR Urine pH 6.5 Ur Specific [place] 1.015 Urine Protein 2+ H Urine Glucose (UA) 250 H Urine Ketones NEG Urine Blood 1+ H Urine Nitrite NEG Ur Leukocyte Esterase NEG Urine RBC 5-9 H Urine WBC 1-4 Ur Squamous Epith Cells 2+ Amorphous Sediment TRACE Urine Bacteria TRACE Stool Occult Blood Acetone, Qual COVID-19 (KRYSTINA) Negative COVID-19 Clin Com See Note Blood Type Antibody Screen 02/25/21 02/25/21 02/26/21 21:27 23:19 06:20 MCV 86.1 MCH 28.4 MCHC 33.0 RDW 14.6 Plt Count 253 MPV 9.9 Immature Gran % (Auto) 0.5 H Neut % (Auto) 78.3 H Lymph % (Auto) 12.6 L [place] % (Auto) 5.4 Eos % (Auto) 3.0 Baso % (Auto) 0.2 Lymph # (Auto) 1.3 [place] # (Auto) 0.6 Eos # (Auto) 0.3 Baso # (Auto) 0.0 Abs Immat Gran (auto) 0.05 H Absolute Neuts (auto) 8.3 Absolute Nucleated RBC 0.000 Nucleated RBC % (auto) 0.0 Anion Gap Estim Creat Clear Calc Estimated GFR POC Glucose Random Glucose Lactic Acid Calcium Magnesium Ferritin Total Bilirubin Direct Bilirubin AST ALT Alkaline Phosphatase Troponin I High Sens Total Protein Albumin Lipase Urine Color Urine Appearance Urine pH Ur Specific [place] Urine Protein Urine Glucose (UA) Urine Ketones Urine Blood Urine Nitrite Ur Leukocyte Esterase Urine RBC Urine WBC Ur Squamous Epith Cells Amorphous Sediment Urine Bacteria Stool Occult Blood NEGATIVE Acetone, Qual COVID-19 (KRYSTINA) COVID-19 Clin Com Blood Type O Positive Antibody Screen NEGATIVE 02/26/21 02/26/21 02/26/21 06:20 06:20 07:15 MCV MCH MCHC RDW Plt Count MPV Immature Gran % (Auto) Neut % (Auto) Lymph % (Auto) [place] % (Auto) Eos % (Auto) Baso % (Auto) Lymph # (Auto) [place] # (Auto) Eos # (Auto) Baso # (Auto) Abs Immat Gran (auto) Absolute Neuts (auto) Absolute Nucleated RBC Nucleated RBC % (auto) Anion Gap 19 Estim Creat Clear Calc 6.2 Estimated GFR 4 POC Glucose 162 H Random Glucose 135 H Lactic Acid Calcium 8.1 L Magnesium Ferritin 124 Total Bilirubin Direct Bilirubin AST ALT Alkaline Phosphatase Troponin I High Sens Total Protein Albumin Lipase Urine Color Urine Appearance Urine pH Ur Specific [place] Urine Protein Urine Glucose (UA) Urine Ketones Urine Blood Urine Nitrite Ur Leukocyte Esterase Urine RBC Urine WBC Ur Squamous Epith Cells Amorphous Sediment Urine Bacteria Stool Occult Blood Acetone, Qual COVID-19 (KRYSTINA) COVID-19 Clin Com Blood Type Antibody Screen Assessment and Plan (1) Acute kidney injury superimposed on chronic kidney disease: Status: Acute (2) Constipation: Status: Acute (3) HTN (hypertension): Status: Acute Assessment and Plan: 65-year-old female with past medical history of diabetes and hypertension presents to the hospital with abdominal pain found to have constipation as well as Vandana and CKD # abdominal pain likely from constipation, she feels more comfortable now, abdomen seems distendend, ask surgery to assess # VANDANA and CKD--probably d/t pre renal state, no obstructio, hydrate and monitor, nephrology consult # constipation - patient reports that she has not moved her bowels in 6 days - has moderate stool burden on CT abdomen - will start on milk of magnesia, MiraLax, and Colace # normocytic anemia, likely anemia of CKD - no melena or bright red blood per rectum - will obtain stool occult test - ferritin B12 and folic acid levels - follow CBC - transfuse for hgb <8 # diabetes--continue Lantus and SSI, follow BS # hypertension--continue home meds of clonidine, Hydralazine, Norvasc, and if needed increase Norvasc to 10 # CHF - no acute exacerbation--Hold lasix d//t VANDANA DVT prophylaxis: hepairn subq Quality Stroke Does the patient have a stroke diagnosis?: No VTE Prior VTE?: No VTE Risk Level:: Medical - moderate - high VTE Device Contraindication: Treatment Not Indicated VTE Drug Contraindication: N/A - Med Ordered
--- NOTE | 2021-02-26 10:20 | PM.CNGS ---
History of Present Illness Consult details Consult date: 02/26/21 Narrative: 65-year-old female patient presenting to the emergency department with complaints of abdominal pain. She has a past history of diabetes, hypertension, chronic constipation, congestive heart failure, chronic kidney disease. She reports moving her bowels approximately 3-4 days prior to admission. She reports this is not unusual for her. The abdominal pain and distension is unusual however. She denies nausea or vomiting and denies any inciting events but notes the pain to increase when pressure is applied to her abdomen. She was admitted to the hospitalist service for further management. CT of the abdomen and pelvis revealed normal shira in bowel without evidence of small-bowel obstruction. A moderate stool burden was noted in the right colon. No free air,abscess or fluid could be identified. Laboratories initially revealed a mildly elevated WBC but current laboratories are normal. Review of Systems Constitutional: Constitutional: Reports anorexia, Denies chills, Denies fever(s) and Reports snoring Respiratory: Respiratory: Reports snoring Gastrointestinal: Gastrointestinal: Reports as per [facility] Past Medical History Medical History CHF (congestive heart failure) Constipation Diabetes mellitus Diastolic congestive heart failure Hypertension Surgical History Surgical History No pertinent past surgical history Social History Social History Household Members: None Housing: House Do you presently have visiting nurse or other home services: Yes (LOCK INST[employer]ER 7days/week) Patient Tobacco Use Status: Current everyday Tobacco user Tobacco use type: Cigarette Cigarette Packs Per Day: 1 Cigarettes Per Day: 20.0 Smoked in Last 30 Days: Yes Patient Interested in Nicotine Replacement: Yes Patient Given Instructions on How to Stop Smoking: Yes Date Education Initiated: 02/26/21 Second Hand Smoke Exposure: No Use of substances other than those prescribed or required for medical reasons: No Substance Use Type: Heroin Currently Displaying Signs/Symptoms of Drug Intoxication Withdrawal: No Any prior treatment program specific to substance use: No Have you been hit, kicked, punched, or otherwise hurt by someone within the past year? If so, by whom?: No Do you feel safe in your current relationship?: No Current Relationship Is there a partner from a previous relationship who is making you feel unsafe now?: No Are you made to feel afraid or neglected: No Religion Healthcare Practices: moravian Advance Directives: No Advance Directives Information Provided: No Advance Directives on File: No Do you have thoughts of harming others: None Do you have a plan to hurt others: No Plan Recently lost weight without trying: No How much weight loss: Not applicable Eating poorly because of decreased appetite: No Nutrition screen score: 0 Nutrition Risks: No Nutritional Risk Patient : No : No Poor oral hygiene: No service: No Current occupational status: unemployed Meds Allergies Allergy/AdvReac Type Severity Reaction Status Date / Time No Known Allergies Allergy Mild NOT Verified 12/14/20 11:50 APPLICABLE Active Medications: Current Medications Acetaminophen (Acetaminophen 325 Mg Tablet) 650 mg PO Q6H PRN PRN Reason: Pain, Mild (Pain Scale 1-3) Albuterol Sulfate (Albuterol Sulfate (0.083%) 2.5 Mg/3 Ml Vial.Neb) 2.5 mg INHALE TID PRN PRN Reason: Wheezing Amlodipine Besylate (Amlodipine Besylate 5 Mg Tablet) 5 mg PO BEDTIME PHAN; Protocol Last Admin: 02/26/21 04:21 Dose: Not Given Documented by: Aspirin (Aspirin Enteric Coated 81 Mg Tablet.Dr) 81 mg PO DAILY [facility] Last Admin: 02/26/21 08:15 Dose: 81 mg Documented by: Buprenorphine/Naloxone (Buprenorphine/Naloxone 8/2 Mg Film) 1 film SUBLINGUAL BID PHAN Last Admin: 02/26/21 08:14 Dose: 1 film Documented by: Clonidine HCl (Clonidine Hcl 0.1 Mg Tablet) 0.1 mg PO BID PHAN; Protocol Last Admin: 02/26/21 08:15 Dose: 0.1 mg Documented by: Dextrose (Dextrose 50 % 25 Gm/50 Ml Vial) 25 gm IVPUSH Q15M PRN; Protocol PRN Reason: per Hypoglycemia Standing Ord. Dextrose (Dextrose 50 % 25 Gm/50 Ml Vial) 25 gm IVPUSH Q15M PRN; Protocol PRN Reason: per Hypoglycemia Standing Ord. Diltiazem HCl (Diltiazem Hcl Cd 180 Mg Cap.Er.24h) 180 mg PO DAILY PHAN; Protocol Last Admin: 02/26/21 04:10 Dose: 180 mg Documented by: Docusate Sodium (Docusate Sodium 100 Mg Capsule) 100 mg PO DAILY PRN PRN Reason: Constipation Escitalopram Oxalate (Escitalopram Oxalate 5 Mg Tablet) 5 mg PO DAILY [facility] Last Admin: 02/26/21 08:15 Dose: 5 mg Documented by: Glucose (Glucose Gel 15 Gm Gel..Gram.) 15 gm PO Q15M PRN; Protocol PRN Reason: per Hypoglycemia Standing Ord. Glucose (Glucose Gel 15 Gm Gel..Gram.) 15 gm PO Q15M PRN; Protocol PRN Reason: per Hypoglycemia Standing Ord. Heparin Sodium (Porcine) (Heparin Sodium,Porcine 5,000 Unit/Ml Vial) 5,000 unit SUBCUT Q12H [facility] Last Admin: 02/26/21 04:11 Dose: 5,000 unit Documented by: Hydralazine HCl (Hydralazine Hcl 25 Mg Tablet) 25 mg PO TID [facility]; Protocol Last Admin: 02/26/21 08:15 Dose: 25 mg Documented by: Lactated Ringer's (Lr) 1,000 mls @ 150 mls/hr IVCONT .Q6H40M [facility] Last Admin: 02/26/21 04:15 Dose: 150 mls/hr Documented by: Insulin Glargine (Insulin Glargine,Hum.Rec.Anlog 100 Unit/Ml 10 Ml Vial) 24 unit SUBCUT DAILY [facility] Last Admin: 02/26/21 08:13 Dose: 24 unit Documented by: Insulin Human Lispro (Insulin Lispro 100 Unit/Ml 3 Ml Vial) 0.1 - 10 unit SUBCUT QIDACHS [facility]; Protocol Magnesium Hydroxide (Milk Of Magnesia 30 Ml Oral.Susp) 30 ml PO DAILY [facility] Last Admin: 02/26/21 08:15 Dose: 30 ml Documented by: Mirtazapine (Mirtazapine 15 Mg Tablet) 15 mg PO BEDTIME [facility] Multivitamins/Vitamin C (Multivitamin Tablet) 1 tab PO DAILY [facility] Last Admin: 02/26/21 08:16 Dose: 1 tab Documented by: Olanzapine (Olanzapine 10 Mg Tablet) 10 mg PO BEDTIME [facility] Ondansetron HCl (Ondansetron Hcl 4 Mg/2 Ml Vial) 4 mg IVPUSH Q8H PRN PRN Reason: Nausea and Vomiting Pharmacy Consult (Consult Rx Perform Med Rec) 1 each MISCELLANE ONCE PRN PRN Reason: Consult order Polyethylene Glycol (Polyethylene Glycol 3350 17 Gm Powd.Pack) 17 gm PO DAILY [facility] Last Admin: 02/26/21 08:15 Dose: 17 gm Documented by: Tiotropium [place] (Tiotropium [place] 18 Mcg Cap.W.Dev) 1 puff INHALE DAILY [facility] Last Admin: 02/26/21 07:57 Dose: 1 puff Documented by: Trazodone HCl (Trazodone Hcl 100 Mg Tablet) 100 - 200 mg PO BEDTIME [facility] Last Admin: 02/26/21 04:11 Dose: 100 mg Documented by: Home Medications Medication Instructions Recorded Confirmed Last Taken Type amlodipine 5 mg tablet 5 mg PO BEDTIME 10/22/20 02/25/21 Unknown History aspirin 81 mg tablet,delayed 81 mg PO QAM 10/22/20 02/25/21 Unknown History release buprenorphine 8 mg-naloxone 2 mg 1 strip SUBLINGUAL BID 10/22/20 02/25/21 Unknown History sublingual film (Suboxone) clonidine HCl 0.1 mg tablet 0.1 mg PO BID 10/22/20 02/25/21 Unknown History diclofenac sodium 1 % topical gel 2 g TOPICAL QID 10/22/20 02/25/21 Unknown History diltiazem HCl 180 mg 180 mg PO QAM 10/22/20 02/25/21 Unknown History capsule,extended release 24 hr docusate sodium 100 mg capsule 1 - 2 cap PO BEDTIME PRN 10/22/20 02/25/21 Unknown History escitalopram oxalate 5 mg tablet 5 mg PO QAM 10/22/20 02/25/21 Unknown History hydralazine 25 mg tablet 25 mg PO TID 10/22/20 02/25/21 Unknown History insulin glargine 100 unit/mL (3 24 unit SUBCUT DAILY 10/22/20 02/25/21 Unknown History mL) subcutaneous pen (Lantus Solostar U-100 Insulin) insulin lispro 100 unit/mL 4 - 12 unit SUBCUT TIDAC 10/22/20 02/25/21 Unknown History subcutaneous pen (Humalog KwikPen (U-100) Insulin) mirtazapine 15 mg tablet 15 mg PO BEDTIME 10/22/20 02/25/21 Unknown History multivitamin (One Daily 1 tab PO QAM 10/22/20 02/25/21 Unknown History Multivitamin) tiotropium bromide 18 mcg capsule 1 cap INHALATION DAILY 10/22/20 02/25/21 Unknown History with inhalation device (Spiriva with HandiHaler) trazodone 100 mg tablet 1 - 2 tab PO BEDTIME 10/22/20 02/25/21 Unknown History albuterol sulfate 1 amp INHALATION TID PRN 02/25/21 02/25/21 Unknown History olanzapine 10 mg tablet 1 tab PO BEDTIME 02/25/21 02/25/21 Unknown History Physical Exam Vital Signs: Vital Signs: Last Vital Signs Temp 97.4 F 02/26/21 07:12 Pulse 82 02/26/21 08:15 Resp 18 02/26/21 07:12 BP 170/88 H 02/26/21 08:15 Pulse Ox 96 02/26/21 07:12 Body Mass Index 39.0 Const: General: Cushingoid facies and ill appearing Nutritional Appearance: obese Orientation/consciousness: patient oriented x3 Limitations: no limitations HENMT: Head: Yes normocephalic and Yes atraumatic Ears: hearing grossly normal bilaterally Resp: Effort & Inspection: normal respiratory effort, no audible wheezes, no cough and no respiratory distress GI: Other: Distended abdomen with tympany to percussion, diffusely tender without rebound or guarding. No masses could be appreciated. Skin: Other: Warm and dry, no rash, no jaundice Neuro: General: patient oriented x3 Results Labs Result diagrams: 02/26/21 06:20 02/26/21 06:20 Labs: Abnormal lab results 02/25/21 02/25/21 02/25/21 Range/Units 20:51 20:51 20:51 WBC 11.3 H (4.8-10.8) X10*3/uL RBC 3.09 L (4.20-5.50) X10*6/uL Hgb 8.8 L D (12.0-16.0) g/dl Hct 26.5 L D (37-47) % Immature Gran % (Auto) 0.5 H (0.0-0.4) % Neut % (Auto) 73.8 H (45-73) % Lymph % (Auto) 16.7 L (20-40) % Abs Immat Gran (auto) 0.06 H (0.00-0.03) X10*3/uL Carbon Dioxide 19 L (22-29) mmol/L BUN 74 H D (9-16) mg/dL Creatinine 9.85 H* (0.5-1.4) mg/dL POC Glucose (60-115) mg/dL Random Glucose 169 H (60-115) mg/dL Calcium 8.1 L (8.4-10.2) mg/dL Alkaline Phosphatase 156 H (39-117) U/L Troponin I High Sens 57.4 H* D (<3.5-17.0) ng/L Total Protein 6.3 L (6.5-8.0) g/dL Albumin 3.4 L (3.5-5.0) g/dL Urine Protein (NEG-TRACE) MG/DL Urine Glucose (UA) (NEG) MG/DL Urine Blood (NEG) Urine RBC (0) /HPF 02/25/21 02/26/21 02/26/21 Range/Units 20:51 06:20 06:20 WBC (4.8-10.8) X10*3/uL RBC 3.03 L (4.20-5.50) X10*6/uL Hgb 8.6 L (12.0-16.0) g/dl Hct 26.1 L (37-47) % Immature Gran % (Auto) 0.5 H (0.0-0.4) % Neut % (Auto) 78.3 H (45-73) % Lymph % (Auto) 12.6 L (20-40) % Abs Immat Gran (auto) 0.05 H (0.00-0.03) X10*3/uL Carbon Dioxide 19 L (22-29) mmol/L BUN 72 H (9-16) mg/dL Creatinine 9.56 H* (0.5-1.4) mg/dL POC Glucose (60-115) mg/dL Random Glucose 135 H (60-115) mg/dL Calcium 8.1 L (8.4-10.2) mg/dL Alkaline Phosphatase (39-117) U/L Troponin I High Sens (<3.5-17.0) ng/L Total Protein (6.5-8.0) g/dL Albumin (3.5-5.0) g/dL Urine Protein 2+ H (NEG-TRACE) MG/DL Urine Glucose (UA) 250 H (NEG) MG/DL Urine Blood 1+ H (NEG) Urine RBC 5-9 H (0) /HPF 02/26/21 Range/Units 07:15 WBC (4.8-10.8) X10*3/uL RBC (4.20-5.50) X10*6/uL Hgb (12.0-16.0) g/dl Hct (37-47) % Immature Gran % (Auto) (0.0-0.4) % Neut % (Auto) (45-73) % Lymph % (Auto) (20-40) % Abs Immat Gran (auto) (0.00-0.03) X10*3/uL Carbon Dioxide (22-29) mmol/L BUN (9-16) mg/dL Creatinine (0.5-1.4) mg/dL POC Glucose 162 H (60-115) mg/dL Random Glucose (60-115) mg/dL Calcium (8.4-10.2) mg/dL Alkaline Phosphatase (39-117) U/L Troponin I High Sens (<3.5-17.0) ng/L Total Protein (6.5-8.0) g/dL Albumin (3.5-5.0) g/dL Urine Protein (NEG-TRACE) MG/DL Urine Glucose (UA) (NEG) MG/DL Urine Blood (NEG) Urine RBC (0) /HPF Short CBC 02/25/21 02/26/21 Range/Units 20:51 06:20 WBC 11.3 H 10.6 (4.8-10.8) X10*3/uL Hgb 8.8 L D 8.6 L (12.0-16.0) g/dl Hct 26.5 L D 26.1 L (37-47) % Plt Count 233 253 (160-400) X10*3/uL BMP 02/25/21 02/26/21 20:51 06:20 Sodium 138 139 Potassium 3.5 3.5 Chloride 103 105 Carbon Dioxide 19 L 19 L BUN 74 H D 72 H Creatinine 9.85 H* 9.56 H* Calcium 8.1 L 8.1 L Liver Function 02/25/21 Range/Units 20:51 Total Bilirubin 0.2 (0.0-1.0) mg/dL Direct Bilirubin < 0.2 (0.0-0.5) mg/dL AST 14 (5-31) U/L ALT 12 (0-31) U/L Alkaline Phosphatase 156 H (39-117) U/L Albumin 3.4 L (3.5-5.0) g/dL Urine 02/25/21 Range/Units 20:51 Urine Color STRAW Urine Appearance CLEAR Urine pH 6.5 (5.0-8.0) Ur Specific [place] 1.015 (1.005-1.025) Urine Protein 2+ H (NEG-TRACE) MG/DL Urine Glucose (UA) 250 H (NEG) MG/DL All other labs normal. Assessment and Plan (1) Abdominal pain: Qualifiers: Abdominal location: unspecified location Qualified Code(s): R10.9 - Unspecified abdominal pain Status: Acute 65-year-old female patient presenting with abdominal distension and pain of unknown etiology. Examination does reveal a distended abdomen tympanic to percussion suggestive of a small-bowel obstruction however review of the CT from last evening does not identify distended small bowel, air-fluid levels or colonic obstruction. There is a moderate amount of stool on the right side. No abscess, ascites, free air, or other explanation for the abdominal distension. Recommend keeping NPO with IV fluids, NG tube if develops nausea or vomiting. Abdominal x-ray series if no improvement in a.m. ; will follow along with you. Procedures Date of Service Date of Service: 02/26/21
[2021-02-26 11:44] LABS: Glucose, Whole Blood 132 mg/dL (60-115)
[2021-02-26 13:33] LABS: OBS Int Ctl Valid YES; OBS1 NEGATIVE (NEGATIVE)
[2021-02-26 15:54] LABS: Glucose, Whole Blood 127 mg/dL (60-115)
--- NOTE | 2021-02-26 16:58 | P.CONNP_ITS ---
History of Present Illness Reason for Consult Consult date: 02/26/21 Reason for consult: VANDANA Chief Complaint Chief complaint: VANDANA on CKD History of Present Illness Narrative: 65-year-old female with known CKD who presented to the hospital with abdominal pain without any nausea or vomiting. She denied any headache , shortness of breath, no cough, no urinary symptoms.? Reports chronic lower extremity edema which has not worsened.? In the ER she was hemodynamically stable with no significant abnormal vitals except for a slightly elevated blood pressure. Her BUN of 74 with creatinine of 9.85 with a baseline around 3.0. She was COVID-[address] pelvic abdomen shows no active inflammatory bowel changes or bowel obstruction or hydronephrosis?. She was admitted for further management. Nephrology was consulted to assist in her clinical care during her current hospital stay. 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) Patient Tobacco Use Status: Current everyday Tobacco user Tobacco use type: Cigarette Cigarette Packs Per Day: 1 Cigarettes Per Day: 20.0 Smoked in Last 30 Days: Yes Patient Interested in Nicotine Replacement: Yes Patient Given Instructions on How to Stop Smoking: Yes Date Education Initiated: 02/26/21 Second Hand Smoke Exposure: No Use of substances other than those prescribed or required for medical reasons: No Substance Use Type: Heroin Currently Displaying Signs/Symptoms of Drug Intoxication Withdrawal: No Any prior treatment program specific to substance use: No Have you been hit, kicked, punched, or otherwise hurt by someone within the past year? If so, by whom?: No Do you feel safe in your current relationship?: No Current Relationship Is there a partner from a previous relationship who is making you feel unsafe now?: No Are you made to feel afraid or neglected: No Judaism Healthcare Practices: restorationism Advance Directives: No Advance Directives Information Provided: No Advance Directives on File: No Do you have thoughts of harming others: None Do you have a plan to hurt others: No Plan Recently lost weight without trying: No How much weight loss: Not applicable Eating poorly because of decreased appetite: No Nutrition screen score: 0 Nutrition Risks: No Nutritional Risk Patient : No : No Poor oral hygiene: No service: No Current occupational status: unemployed Meds Allergies Allergy/AdvReac Type Severity Reaction Status Date / Time No Known Allergies Allergy Mild NOT Verified 12/14/20 11:50 APPLICABLE Active Medications: Current Medications Acetaminophen (Acetaminophen 325 Mg Tablet) 650 mg PO Q6H PRN PRN Reason: Pain, Mild (Pain Scale 1-3) Albuterol Sulfate (Albuterol Sulfate (0.083%) 2.5 Mg/3 Ml Vial.Neb) 2.5 mg INHALE TID PRN PRN Reason: Wheezing Amlodipine Besylate (Amlodipine Besylate 5 Mg Tablet) 5 mg PO BEDTIME [facility]; Protocol Last Admin: 02/26/21 04:21 Dose: Not Given Documented by: Aspirin (Aspirin Enteric Coated 81 Mg Tablet.Dr) 81 mg PO DAILY [facility] Last Admin: 02/26/21 08:15 Dose: 81 mg Documented by: Buprenorphine/Naloxone (Buprenorphine/Naloxone 8/2 Mg Film) 1 film SUBLINGUAL BID [facility] Last Admin: 02/26/21 08:14 Dose: 1 film Documented by: Clonidine HCl (Clonidine Hcl 0.1 Mg Tablet) 0.1 mg PO BID [facility]; Protocol Last Admin: 02/26/21 08:15 Dose: 0.1 mg Documented by: Dextrose (Dextrose 50 % 25 Gm/50 Ml Vial) 25 gm IVPUSH Q15M PRN; Protocol PRN Reason: per Hypoglycemia Standing Ord. Dextrose (Dextrose 50 % 25 Gm/50 Ml Vial) 25 gm IVPUSH Q15M PRN; Protocol PRN Reason: per Hypoglycemia Standing Ord. Diltiazem HCl (Diltiazem Hcl Cd 180 Mg Cap.Er.24h) 180 mg PO DAILY [facility]; Protocol Last Admin: 02/26/21 04:10 Dose: 180 mg Documented by: Docusate Sodium (Docusate Sodium 100 Mg Capsule) 100 mg PO DAILY PRN PRN Reason: Constipation Escitalopram Oxalate (Escitalopram Oxalate 5 Mg Tablet) 5 mg PO DAILY [facility] Last Admin: 02/26/21 08:15 Dose: 5 mg Documented by: Glucose (Glucose Gel 15 Gm Gel..Gram.) 15 gm PO Q15M PRN; Protocol PRN Reason: per Hypoglycemia Standing Ord. Glucose (Glucose Gel 15 Gm Gel..Gram.) 15 gm PO Q15M PRN; Protocol PRN Reason: per Hypoglycemia Standing Ord. Heparin Sodium (Porcine) (Heparin Sodium,Porcine 5,000 Unit/Ml Vial) 5,000 unit SUBCUT Q12H [facility] Last Admin: 02/26/21 14:54 Dose: 5,000 unit Documented by: Hydralazine HCl (Hydralazine Hcl 25 Mg Tablet) 25 mg PO TID [facility]; Protocol Last Admin: 02/26/21 14:55 Dose: 25 mg Documented by: Lactated Ringer's (Lr) 1,000 mls @ 150 mls/hr IVCONT .Q6H40M [facility] Last Admin: 02/26/21 12:20 Dose: 150 mls/hr Documented by: Insulin Glargine (Insulin Glargine,Hum.Rec.Anlog 100 Unit/Ml 10 Ml Vial) 24 unit SUBCUT DAILY [facility] Last Admin: 02/26/21 08:13 Dose: 24 unit Documented by: Insulin Human Lispro (Insulin Lispro 100 Unit/Ml 3 Ml Vial) 0.1 - 10 unit SUBCUT QIDACHS [facility]; Protocol Last Admin: 02/26/21 12:24 Dose: Not Given Documented by: Magnesium Hydroxide (Milk Of Magnesia 30 Ml Oral.Susp) 30 ml PO DAILY [facility] Last Admin: 02/26/21 08:15 Dose: 30 ml Documented by: Mirtazapine (Mirtazapine 15 Mg Tablet) 15 mg PO BEDTIME [facility] Multivitamins/Vitamin C (Multivitamin Tablet) 1 tab PO DAILY [facility] Last Admin: 02/26/21 08:16 Dose: 1 tab Documented by: Olanzapine (Olanzapine 10 Mg Tablet) 10 mg PO BEDTIME [facility] Ondansetron HCl (Ondansetron Hcl 4 Mg/2 Ml Vial) 4 mg IVPUSH Q8H PRN PRN Reason: Nausea and Vomiting Pharmacy Consult (Consult Rx Perform Med Rec) 1 each MISCELLANE ONCE PRN PRN Reason: Consult order Polyethylene Glycol (Polyethylene Glycol 3350 17 Gm Powd.Pack) 17 gm PO DAILY [facility] Last Admin: 02/26/21 08:15 Dose: 17 gm Documented by: Tiotropium [place] (Tiotropium [place] 18 Mcg Cap.W.Dev) 1 puff INHALE DAILY [facility] Last Admin: 02/26/21 07:57 Dose: 1 puff Documented by: Trazodone HCl (Trazodone Hcl 100 Mg Tablet) 100 - 200 mg PO BEDTIME [facility]AN Last Admin: 02/26/21 04:11 Dose: 100 mg Documented by: Home Medications Medication Instructions Recorded Confirmed Last Taken Type amlodipine 5 mg tablet 5 mg PO BEDTIME 10/22/20 02/25/21 Unknown History aspirin 81 mg tablet,delayed 81 mg PO QAM 10/22/20 02/25/21 Unknown History release buprenorphine 8 mg-naloxone 2 mg 1 strip SUBLINGUAL BID 10/22/20 02/25/21 Unknown History sublingual film (Suboxone) clonidine HCl 0.1 mg tablet 0.1 mg PO BID 10/22/20 02/25/21 Unknown History diclofenac sodium 1 % topical gel 2 g TOPICAL QID 10/22/20 02/25/21 Unknown History diltiazem HCl 180 mg 180 mg PO QAM 10/22/20 02/25/21 Unknown History capsule,extended release 24 hr docusate sodium 100 mg capsule 1 - 2 cap PO BEDTIME PRN 10/22/20 02/25/21 Unknown History escitalopram oxalate 5 mg tablet 5 mg PO QAM 10/22/20 02/25/21 Unknown History hydralazine 25 mg tablet 25 mg PO TID 10/22/20 02/25/21 Unknown History insulin glargine 100 unit/mL (3 24 unit SUBCUT DAILY 10/22/20 02/25/21 Unknown History mL) subcutaneous pen (Lantus Solostar U-100 Insulin) insulin lispro 100 unit/mL 4 - 12 unit SUBCUT TIDAC 10/22/20 02/25/21 Unknown History subcutaneous pen (Humalog KwikPen (U-100) Insulin) mirtazapine 15 mg tablet 15 mg PO BEDTIME 10/22/20 02/25/21 Unknown History multivitamin (One Daily 1 tab PO QAM 10/22/20 02/25/21 Unknown History Multivitamin) tiotropium bromide 18 mcg capsule 1 cap INHALATION DAILY 10/22/20 02/25/21 Unknown History with inhalation device (Spiriva with HandiHaler) trazodone 100 mg tablet 1 - 2 tab PO BEDTIME 10/22/20 02/25/21 Unknown History albuterol sulfate 1 amp INHALATION TID PRN 02/25/21 02/25/21 Unknown History olanzapine 10 mg tablet 1 tab PO BEDTIME 02/25/21 02/25/21 Unknown History Physical Exam Vital Signs: Last Vital Signs Temp 98.6 F 02/26/21 15:16 Pulse 67 02/26/21 15:16 Resp 18 02/26/21 15:16 BP 164/74 H 02/26/21 15:16 Pulse Ox 100 02/26/21 15:16 Body Mass Index 39.0 Const General: no acute distress Eyes EOM: EOMs intact bilaterally Neck Neck: Yes supple Resp Auscultation: diminished lung sounds Cardio Jugular venous distension: no JVD GI Palpation (GI): Soft to palpation Neuro General: moves all extremities Results Lab Results Result Diagrams: 02/26/21 06:20 02/26/21 06:20 Lab results: Chemistry 02/25/21 02/26/21 20:51 06:20 Sodium 138 139 Potassium 3.5 3.5 Carbon Dioxide 19 L 19 L BUN 74 H D 72 H Creatinine 9.85 H* 9.56 H* Calcium 8.1 L 8.1 L Hematology 02/25/21 02/26/21 20:51 06:20 WBC 11.3 H 10.6 Hgb 8.8 L D 8.6 L Plt Count 233 253 Urinalysis 02/25/21 20:51 Urine Color STRAW Urine Appearance CLEAR Urine pH 6.5 Ur Specific [place] 1.015 Urine Protein 2+ H Urine Glucose (UA) 250 H Urine Ketones NEG Urine Blood 1+ H Urine Nitrite NEG Ur Leukocyte Esterase NEG Urine RBC 5-9 H Urine WBC 1-4 Ur Squamous Epith Cells 2+ Assessment and Plan (1) Acute kidney injury superimposed on chronic kidney disease: Status: Acute Likely due to tubular injury ; DDx- progression of her renal disease to ESRD Obstruction ruled out. Needs to treat as tubular injury; Needs to R/O vascular event Needs repeat Doppler of renal artery and need to review her renal biopsy done few months ago Meanwhile C/W supportive care. No indication for Hemodialysis today. Labs AM. Shall F/U Procedures Date of Service Date of Service: 02/26/21
--- NOTE | 2021-02-26 18:06 | PC.NURSE ---
Pt had >5 BM throughout the day. Loose/soft/large. Pt reports that her stomach pain is improving at this time.
[2021-02-26 19:52] LABS: Glucose, Whole Blood 165 mg/dL (60-115)
[2021-02-26] MEDS: Mirtazapine 15 MG TABLET PO (20:20)
[2021-02-26] MEDS: amLODIPine Besylate 5 MG TABLET PO (20:21)
[2021-02-26] MEDS: OLANZapine 10 MG TABLET PO (20:21)
[2021-02-27] VITALS (9 sets, daily range): BP systolic 152–188; BP diastolic 61–81; PULSE 75–105; RESP 17–20; TEMP 36.5–37.2; O2SAT 97–100; BMI 39.2
[2021-02-27] MEDS: Acetaminophen 325 MG TABLET 650 MG PO ×2 (01:59→18:19)
[2021-02-27] MEDS: Heparin Sodium,Porcine 5,000 UNIT/ML VIAL 5000 UNIT SUBCUT ×2 (04:45→15:18)
[2021-02-27 07:00] LABS: Anion Gap 17 (12-20); Blood Urea Nitrogen 69 mg/dL (9-16); Calcium 8.5 mg/dL (8.4-10.2); Carbon Dioxide 19 mmol/L (22-29); Chloride 106 mmol/L (96-108); Creatinine Clr Calc Pharmacy 6.3; Estimated Glomerular Filt Rate 4; Glucose Random 120 mg/dL (60-115); Potassium 4.2 mmol/L (3.3-5.1); Sodium 138 mmol/L (135-145)
[2021-02-27 07:18] LABS: Glucose, Whole Blood 132 mg/dL (60-115)
[2021-02-27] MEDS: Buprenorphine/Naloxone 8/2 mg FILM 1 FILM SUBLINGUAL ×2 (09:11→20:20)
[2021-02-27] MEDS: cloNIDine HCL 0.1 MG TABLET PO ×2 (09:12→20:17)
[2021-02-27] MEDS: hydrALAZINE HCl 25 MG TABLET PO ×3 (09:12→15:19)
[2021-02-27] MEDS: dilTIAZem HCL CD 180 MG CAP.ER.24H PO (09:12)
[2021-02-27] MEDS: Aspirin Enteric Coated 81 MG TABLET.DR PO (09:13)
[2021-02-27] MEDS: Escitalopram Oxalate 5 MG TABLET PO (09:13)
--- NOTE | 2021-02-27 09:16 | MHC.CM.PN ---
Met with patient in room, patient verified verbally that she spoke chilean; patient verbally confirmed name, , place, time and situation. Confirmed with patient (verbally) that she utilizes [facility] for in-home [facility]NA (she would not specify type of services), patient confirmed verbally [employer] services and again, she would not specify details of hours, company, etc. Confirmed PCP as Dr. Jacobs. Patient would not give specifics of DME in the home. She did verbally confirm she lived alone. Patient elusive throughout interview and chose to ignore most questions during interview and answer a few others (as indicated above). At times patient would say in chilean no chilean, and then directly following this statement say in chilean, I want my medications now, go find my nurse. This CM agreed to locate patient's nurse following pleasant closure of meeting. Patient ignored remainder of CM's communication by closing eyes and not responding. CM exited room to locate patient's nurse, CM to follow.
[2021-02-27] MEDS: ondansetron HCL 4 MG/2 ML VIAL IVPUSH (09:29)
[2021-02-27] MEDS: Insulin Glargine,Hum.rec.anlog 100 UNIT/ML 10 ML VIAL 24 UNIT SUBCUT (09:29)
[2021-02-27] MEDS: Multivitamin TABLET 1 TAB PO (09:30)
--- NOTE | 2021-02-27 09:38 | PM.PNGS ---
Subjective Subjective Date of Service: 02/27/21 Interval history: Patient sitting up in a chair feeling much improved decreased abdominal pain. She reports passing a large bowel movement with an improvement of her abdominal distension. Physical Exam Vital Signs: Vital Signs: Last Vital Signs Temp 98.7 F 02/27/21 07:23 Pulse 76 02/27/21 09:12 Resp 20 02/27/21 07:23 BP 173/74 H 02/27/21 09:12 Pulse Ox 100 02/27/21 07:23 Body Mass Index 39.2 Const: General: comfortable and no acute distress Nutritional Appearance: obese Orientation/consciousness: patient oriented x3 Limitations: no limitations Resp: Effort & Inspection: normal respiratory effort GI: Other: Large abdomen, soft, nondistended, nontender to deep palpation. No rebound, guarding, or rigidity. Skin: Other: Warm, dry Neuro: General: patient oriented x3 Procedures Date of Service Date of Service: 02/27/21 Progress Note: A&P Assessment and plan (1) Constipation: Status: Acute (2) Abdominal pain: Status: Acute Assessment and Plan: The patient reports a large bowel with improvement in her abdominal pain. Her abdomen is currently soft and nondistended with no tenderness to deep palpation. Constipation is now resolved as is her abdominal distension. No surgical intervention anticipated. I will sign off, please re-consult if needed. Fall Risk Details Current Medications: Current Medications Acetaminophen (Acetaminophen 325 Mg Tablet) 650 mg PO Q6H PRN PRN Reason: Pain, Mild (Pain Scale 1-3) Last Admin: 02/27/21 01:59 Dose: 650 mg Documented by: Albuterol Sulfate (Albuterol Sulfate (0.083%) 2.5 Mg/3 Ml Vial.Neb) 2.5 mg INHALE TID PRN PRN Reason: Wheezing Amlodipine Besylate (Amlodipine Besylate 5 Mg Tablet) 5 mg PO BEDTIME [facility]; Protocol Last Admin: 02/26/21 20:21 Dose: 5 mg Documented by: Aspirin (Aspirin Enteric Coated 81 Mg Tablet.) 81 mg PO DAILY [facility] Last Admin: 02/27/21 09:13 Dose: 81 mg Documented by: Buprenorphine/Naloxone (Buprenorphine/Naloxone 8/2 Mg Film) 1 film SUBLINGUAL BID [facility] Last Admin: 02/27/21 09:11 Dose: 1 film Documented by: Clonidine HCl (Clonidine Hcl 0.1 Mg Tablet) 0.1 mg PO BID [facility]; Protocol Last Admin: 02/27/21 09:12 Dose: 0.1 mg Documented by: Dextrose (Dextrose 50 % 25 Gm/50 Ml Vial) 25 gm IVPUSH Q15M PRN; Protocol PRN Reason: per Hypoglycemia Standing Ord. Dextrose (Dextrose 50 % 25 Gm/50 Ml Vial) 25 gm IVPUSH Q15M PRN; Protocol PRN Reason: per Hypoglycemia Standing Ord. Diltiazem HCl (Diltiazem Hcl Cd 180 Mg Cap.Er.24h) 180 mg PO DAILY [facility]; Protocol Last Admin: 02/27/21 09:12 Dose: 180 mg Documented by: Docusate Sodium (Docusate Sodium 100 Mg Capsule) 100 mg PO DAILY PRN PRN Reason: Constipation Escitalopram Oxalate (Escitalopram Oxalate 5 Mg Tablet) 5 mg PO DAILY [facility] Last Admin: 02/27/21 09:13 Dose: 5 mg Documented by: Glucose (Glucose Gel 15 Gm Gel..Gram.) 15 gm PO Q15M PRN; Protocol PRN Reason: per Hypoglycemia Standing Ord. Glucose (Glucose Gel 15 Gm Gel..Gram.) 15 gm PO Q15M PRN; Protocol PRN Reason: per Hypoglycemia Standing Ord. Heparin Sodium (Porcine) (Heparin Sodium,Porcine 5,000 Unit/Ml Vial) 5,000 unit SUBCUT Q12H [facility] Last Admin: 02/27/21 04:45 Dose: 5,000 unit Documented by: Hydralazine HCl (Hydralazine Hcl 25 Mg Tablet) 25 mg PO TID [facility]; Protocol Last Admin: 02/27/21 09:12 Dose: 25 mg Documented by: Lactated Ringer's (Lr) 1,000 mls @ 150 mls/hr IVCONT .Q6H40M [facility] Last Admin: 02/27/21 06:32 Dose: Not Given Documented by: Insulin Glargine (Insulin Glargine,Hum.Rec.Anlog 100 Unit/Ml 10 Ml Vial) 24 unit SUBCUT DAILY [facility] Last Admin: 02/27/21 09:29 Dose: 24 unit Documented by: Insulin Human Lispro (Insulin Lispro 100 Unit/Ml 3 Ml Vial) 0.1 - 10 unit SUBCUT QIDACHS [facility]; Protocol Last Admin: 02/27/21 08:07 Dose: Not Given Documented by: Mirtazapine (Mirtazapine 15 Mg Tablet) 15 mg PO BEDTIME [facility] Last Admin: 02/26/21 20:20 Dose: 15 mg Documented by: Multivitamins/Vitamin C (Multivitamin Tablet) 1 tab PO DAILY [facility] Last Admin: 02/27/21 09:30 Dose: 1 tab Documented by: Olanzapine (Olanzapine 10 Mg Tablet) 10 mg PO BEDTIME [facility] Last Admin: 02/26/21 20:21 Dose: 10 mg Documented by: Ondansetron HCl (Ondansetron Hcl 4 Mg/2 Ml Vial) 4 mg IVPUSH Q8H PRN PRN Reason: Nausea and Vomiting Last Admin: 02/27/21 09:29 Dose: 4 mg Documented by: Pharmacy Consult (Consult Rx Perform Med Rec) 1 each MISCELLANE ONCE PRN PRN Reason: Consult order Polyethylene Glycol (Polyethylene Glycol 3350 17 Gm Powd.Pack) 17 gm PO DAILY [facility] Last Admin: 02/27/21 09:32 Dose: Not Given Documented by: Tiotropium [place] (Tiotropium [place] 18 Mcg Cap.W.Dev) 1 puff INHALE DAILY [facility] Last Admin: 02/27/21 07:18 Dose: 1 puff Documented by: Trazodone HCl (Trazodone Hcl 100 Mg Tablet) 100 - 200 mg PO BEDTIME [facility] Last Admin: 02/26/21 20:21 Dose: 100 mg Documented by: Time Spent With Patient Time: Total time spent is greater than 50% in coordination of care (as documented) at patient's floor/unit and/or counseling patient: Time with patient: 15 - 24 minutes Quality Stroke Does the patient have a stroke diagnosis?: No VTE Prior VTE?: No VTE Risk Level:: Medical - moderate - high VTE Device Contraindication: Treatment Not Indicated VTE Drug Contraindication: N/A - Med Ordered
[2021-02-27] MEDS: Nicotine 21 MG PATCH.TD24 TRANSDERMA (10:24)
--- NOTE | 2021-02-27 11:02 | PM.PNNEP ---
Subjective Subjective Date of Service: 02/27/21 Interval history: Renal functions has not shown significant improvement. Concerned about it. Denied any uremic symptoms Physical Exam Vital Signs: Vital Signs: Last Vital Signs Temp 97.7 F 02/27/21 10:49 Pulse 105 H 02/27/21 10:49 Resp 20 02/27/21 10:49 BP 183/81 H 02/27/21 10:49 Pulse Ox 98 02/27/21 10:49 Body Mass Index 39.2 Const: General: no acute distress HENMT: Mouth: moist mucous membranes Neck: Neck: Yes supple Resp: Auscultation: diminished lung sounds Cardio: Rate: regular rate GI: Palpation (GI): Soft to palpation Neuro: General: moves all extremities Extrem: General: Yes edema Objective Data Labs CBC & Chem 7: 02/26/21 06:20 02/27/21 05:54 Labs: Laboratory Results - last 24 hr 02/26/21 02/26/21 02/26/21 11:36 12:50 15:47 Sodium Potassium Chloride Carbon Dioxide Anion Gap BUN Creatinine Estim Creat Clear Calc Estimated GFR POC Glucose 132 H 127 H Random Glucose Calcium Stool Occult Blood NEGATIVE 02/26/21 02/27/21 02/27/21 19:43 05:54 07:13 Sodium 138 Potassium 4.2 Chloride 106 Carbon Dioxide 19 L Anion Gap 17 BUN 69 H Creatinine 9.42 H* Estim Creat Clear Calc 6.3 Estimated GFR 4 POC Glucose 165 H 132 H Random Glucose 120 H Calcium 8.5 Stool Occult Blood Procedures Date of Service Date of Service: 02/27/21 Assessment & Plan Assessment and plan (1) Acute kidney injury superimposed on chronic kidney disease: Status: Acute Assessment and Plan: Likely due to tubular injury ; DDx- progression of her renal disease to ESRD Obstruction ruled out. Needs to treat as tubular injury; Needs to R/O vascular event Doppler of renal artery ordered; Need to review her renal biopsy done few months ago Meanwhile C/W supportive care. No indication for Hemodialysis today. Lasix IV today. May need HD this admission; Labs AM. Shall F/U Time Spent With Patient Time: Total time spent is greater than 50% in coordination of care (as documented) at patient's floor/unit and/or counseling patient: Progress Note: Quality Stroke Does the patient have a stroke diagnosis?: No
[2021-02-27 11:03] LABS: Glucose, Whole Blood 177 mg/dL (60-115)
[2021-02-27] MEDS: Insulin Lispro 100 UNIT/ML 3 ML VIAL SUBCUT ×3 (12:35→20:19)
--- NOTE | 2021-02-27 12:36 | P.PNIM_ITS ---
Subjective Subjective Date of Service: 02/27/21 Interval History: Being followed for abdominal pain, this morning patient complaining of nausea, requesting for nicotine patch, and Suboxone Review of Systems General no headache, no dizziness no fever chills. CVS no chest pain, no palpitation. Respiratory no cough, no sob. Gastrointestinal nausea spitting clear phlegm,no abdominal pain Physical Exam Vital Signs: Vital Signs: Last Vital Signs Temp 97.7 F 02/27/21 10:49 Pulse 105 H 02/27/21 10:49 Resp 20 02/27/21 10:49 BP 154/76 H 02/27/21 12:30 Pulse Ox 98 02/27/21 10:49 Body Mass Index 39.2 General: AX O X 3, no acute distress Face periorbital swelling Neck is supple, no JVD Resp:? CTA bilateral CVS: S1,S2,RRR, bilateral edema GI: +BS, abdomen distended, nontender bowel sounds audible Skin: No rash Neuro:? motor grossly intact Psych: Anxious Objective Data Active Medications Acetaminophen (Acetaminophen 325 Mg Tablet) 650 mg PO Q6H PRN PRN Reason: Pain, Mild (Pain Scale 1-3) Last Admin: 02/27/21 01:59 Dose: 650 mg Documented by: CHADD Albuterol Sulfate (Albuterol Sulfate (0.083%) 2.5 Mg/3 Ml Vial.Neb) 2.5 mg INHALE TID PRN PRN Reason: Wheezing Amlodipine Besylate (Amlodipine Besylate 5 Mg Tablet) 5 mg PO BEDTIME [facility]; Protocol Last Admin: 02/26/21 20:21 Dose: 5 mg Documented by: CHADD Aspirin (Aspirin Enteric Coated 81 Mg Tablet.) 81 mg PO DAILY [facility] Last Admin: 02/27/21 09:13 Dose: 81 mg Documented by: KISHOR Buprenorphine/Naloxone (Buprenorphine/Naloxone 8/2 Mg Film) 1 film SUBLINGUAL BID [facility] Last Admin: 02/27/21 09:11 Dose: 1 film Documented by: KISHOR Clonidine HCl (Clonidine Hcl 0.1 Mg Tablet) 0.1 mg PO BID [facility]; Protocol Last Admin: 02/27/21 09:12 Dose: 0.1 mg Documented by: KISHOR Dextrose (Dextrose 50 % 25 Gm/50 Ml Vial) 25 gm IVPUSH Q15M PRN; Protocol PRN Reason: per Hypoglycemia Standing Ord. Dextrose (Dextrose 50 % 25 Gm/50 Ml Vial) 25 gm IVPUSH Q15M PRN; Protocol PRN Reason: per Hypoglycemia Standing Ord. Diltiazem HCl (Diltiazem Hcl Cd 180 Mg Cap.Er.24h) 180 mg PO DAILY [facility]; Protocol Last Admin: 02/27/21 09:12 Dose: 180 mg Documented by: KISHOR Docusate Sodium (Docusate Sodium 100 Mg Capsule) 100 mg PO DAILY PRN PRN Reason: Constipation Escitalopram Oxalate (Escitalopram Oxalate 5 Mg Tablet) 5 mg PO DAILY [facility] Last Admin: 02/27/21 09:13 Dose: 5 mg Documented by: KISHOR Glucose (Glucose Gel 15 Gm Gel..Gram.) 15 gm PO Q15M PRN; Protocol PRN Reason: per Hypoglycemia Standing Ord. Glucose (Glucose Gel 15 Gm Gel..Gram.) 15 gm PO Q15M PRN; Protocol PRN Reason: per Hypoglycemia Standing Ord. Heparin Sodium (Porcine) (Heparin Sodium,Porcine 5,000 Unit/Ml Vial) 5,000 unit SUBCUT Q12H [facility] Last Admin: 02/27/21 04:45 Dose: 5,000 unit Documented by: HCADD Hydralazine HCl (Hydralazine Hcl 25 Mg Tablet) 25 mg PO TID [facility]; Protocol Last Admin: 02/27/21 09:12 Dose: 25 mg Documented by: KISHOR Insulin Glargine (Insulin Glargine,Hum.Rec.Anlog 100 Unit/Ml 10 Ml Vial) 24 unit SUBCUT DAILY [facility] Last Admin: 02/27/21 09:29 Dose: 24 unit Documented by: KISHOR Insulin Human Lispro (Insulin Lispro 100 Unit/Ml 3 Ml Vial) 0.1 - 10 unit SUBCUT QIDACHS [facility]; Protocol Last Admin: 02/27/21 08:07 Dose: Not Given Documented by: KISHOR Non-Admin Reason: No Insulin Coverage Mirtazapine (Mirtazapine 15 Mg Tablet) 15 mg PO BEDTIME [facility] Last Admin: 02/26/21 20:20 Dose: 15 mg Documented by: CHADD Multivitamins/Vitamin C (Multivitamin Tablet) 1 tab PO DAILY [facility] Last Admin: 02/27/21 09:30 Dose: 1 tab Documented by: KISHOR Nicotine (Nicotine 21 Mg Patch.Td24) 21 mg TRANSDERMA DAILY [facility] Last Admin: 02/27/21 10:24 Dose: 21 mg Documented by: KISHOR Olanzapine (Olanzapine 10 Mg Tablet) 10 mg PO BEDTIME [facility] Last Admin: 02/26/21 20:21 Dose: 10 mg Documented by: CHADD Ondansetron HCl (Ondansetron Hcl 4 Mg/2 Ml Vial) 4 mg IVPUSH Q8H PRN PRN Reason: Nausea and Vomiting Last Admin: 02/27/21 09:29 Dose: 4 mg Documented by: KISHOR Pharmacy Consult (Consult Rx Perform Med Rec) 1 each MISCELLANE ONCE PRN PRN Reason: Consult order Polyethylene Glycol (Polyethylene Glycol 3350 17 Gm Powd.Pack) 17 gm PO DAILY [facility] Last Admin: 02/27/21 09:32 Dose: Not Given Documented by: KISHOR Non-Admin Reason: pt has diarrhea Tiotropium [place] (Tiotropium [place] 18 Mcg Cap.W.Dev) 1 puff INHALE DAILY [facility] Last Admin: 02/27/21 07:18 Dose: 1 puff Documented by: DRAKE Trazodone HCl (Trazodone Hcl 100 Mg Tablet) 100 - 200 mg PO BEDTIME [facility] Last Admin: 02/26/21 20:21 Dose: 100 mg Documented by: CHADD Labs CBC & Chem 7: 02/26/21 06:20 02/27/21 05:54 Labs: Laboratory Results - last 24 hr 02/26/21 02/26/21 02/26/21 12:50 15:47 19:43 Anion Gap Estim Creat Clear Calc Estimated GFR POC Glucose 127 H 165 H Random Glucose Calcium Stool Occult Blood NEGATIVE 02/27/21 02/27/21 02/27/21 05:54 07:13 10:57 Anion Gap 17 Estim Creat Clear Calc 6.3 Estimated GFR 4 POC Glucose 132 H 177 H Random Glucose 120 H Calcium 8.5 Stool Occult Blood Assessment and Plan (1) Normocytic anemia: Status: Acute (2) Acute kidney injury superimposed on chronic kidney disease: Status: Acute (3) Abdominal pain: Status: Acute (4) HTN (hypertension): Status: Acute (5) Essential hypertension: Status: Acute Assessment and Plan: 65-year-old female with past medical history of diabetes and hypertension presents to the hospital with abdominal pain found to have constipation as well as Vandana and CKD # abdominal pain resolved was likely due to constipation had multiple loose stools yesterday no bowel movement this morning will discontinue stool softeners. Seen by surgery and they agree with current treatment plan # VANDANA and CKD--no improvement and renal function will discontinue IV fluid due to generalized edema, case discussed with Nephrology they recommend 1 dose of IV Lasix, will order renal Doppler study Nephrology will look in to recent renal biopsy report # normocytic anemia, likely anemia of CKD - no melena or bright red blood per rectum, stool occult negative, repeat hematocrit stable, follow CBC Will check ferritin, B12 and folic acid levels Will discussed with Nephro regarding Procrit, transfuse for hgb <8 # diabetes--blood sugars stable, continue Lantus and SSI, follow BS # hypertension--BP elevated on home medications clonidine 0.1 mg b.i.d. Hydr alazine 25 mg t.i.d. Norvasc, 5 mg at bedtime and Cardizem 180 mg daily, will increase dose of hydralazine to 50 t.i.d. # history of diastolic CHF no acute decompensation fluid overload likely due to acute on chronic kidney disease, no orthopnea, no PND, will give 1 dose of IV Lasix follow clinical course Recent echo November 08 showed an EF 65-70% no evidence of regional wall motion abnormality and abnormal diastolic function # tobacco use disorder will add nicotine patch 21 mg, smoking cessation advised # opiate use disorder will continue Suboxone # obesity weight reduction recommended, will place on low-calorie diet DVT prophylaxis: hepairn subq Quality Stroke Does the patient have a stroke diagnosis?: No VTE Prior VTE?: No VTE Risk Level:: Medical - moderate - high VTE Device Contraindication: Treatment Not Indicated VTE Drug Contraindication: N/A - Med Ordered
[2021-02-27] MEDS: Furosemide 100 MG/10 ML VIAL 80 MG IVPUSH (13:10)
[2021-02-27 16:15] LABS: Glucose, Whole Blood 159 mg/dL (60-115)
[2021-02-27] MEDS: OLANZapine 10 MG TABLET PO (20:18)
[2021-02-27] MEDS: hydrALAZINE HCl 50 MG TABLET PO (20:18)
[2021-02-27] MEDS: Mirtazapine 15 MG TABLET PO (20:18)
[2021-02-27] MEDS: traZODone HCL 100 MG TABLET PO (20:18)
[2021-02-27] MEDS: amLODIPine Besylate 5 MG TABLET PO (20:18)
[2021-02-27 20:20] LABS: Glucose, Whole Blood 193 mg/dL (60-115)
[2021-02-27] MEDS: oxyCODONE HCl Immed Release 5 MG TABLET PO (21:31)
[2021-02-28] VITALS (12 sets, daily range): BP systolic 119–213; BP diastolic 54–90; PULSE 67–87; RESP 16–20; TEMP 36.3–36.8; O2SAT 97–100; BMI 39.4
[2021-02-28] MEDS: Acetaminophen 325 MG TABLET 650 MG PO ×2 (03:39→16:42)
[2021-02-28] MEDS: Heparin Sodium,Porcine 5,000 UNIT/ML VIAL 5000 UNIT SUBCUT ×2 (03:39→14:25)
[2021-02-28 07:35] LABS: Anion Gap 14 (12-20); Blood Urea Nitrogen 68 mg/dL (9-16); Calcium 7.9 mg/dL (8.4-10.2); Carbon Dioxide 22 mmol/L (22-29); Chloride 106 mmol/L (96-108); Creatinine Clr Calc Pharmacy 6.2; Estimated Glomerular Filt Rate 4; Glucose Random 182 mg/dL (60-115); Potassium 4.2 mmol/L (3.3-5.1); Sodium 138 mmol/L (135-145)
[2021-02-28 07:56] LABS: Glucose, Whole Blood 154 mg/dL (60-115)
[2021-02-28] MEDS: Aspirin Enteric Coated 81 MG TABLET.DR PO (09:04)
[2021-02-28] MEDS: cloNIDine HCL 0.1 MG TABLET PO ×2 (09:04→21:26)
[2021-02-28] MEDS: Escitalopram Oxalate 5 MG TABLET PO (09:04)
[2021-02-28] MEDS: dilTIAZem HCL CD 180 MG CAP.ER.24H PO (09:05)
[2021-02-28] MEDS: Nicotine 21 MG PATCH.TD24 TRANSDERMA (09:06)
[2021-02-28] MEDS: hydrALAZINE HCl 50 MG TABLET PO ×3 (09:06→21:26)
[2021-02-28] MEDS: Buprenorphine/Naloxone 8/2 mg FILM 1 FILM SUBLINGUAL ×2 (09:06→21:25)
[2021-02-28] MEDS: Insulin Glargine,Hum.rec.anlog 100 UNIT/ML 10 ML VIAL 24 UNIT SUBCUT (09:14)
[2021-02-28 10:59] LABS: Glucose, Whole Blood 127 mg/dL (60-115)
--- NOTE | 2021-02-28 13:23 | P.PNIM_ITS ---
Subjective Subjective Date of Service: 02/28/21 Interval History: Being followed for acute on chronic kidney disease and hypertension, patient feeling better this morning denies nausea no abdominal pain is NPO for renal Doppler study. Review of Systems General no headache, no dizziness, no fever chills.? CVS no chest pain, no palpitation.? Respiratory no cough, no sob.? Gastrointestinal?no nausea, no vomiting,no abdominal pain Review of Systems: Yes all other systems are reviewed and are negative Physical Exam Vital Signs: Vital Signs: Last Vital Signs Temp 97.3 F 02/28/21 10:48 Pulse 73 02/28/21 10:48 Resp 18 02/28/21 10:48 BP 119/54 L 02/28/21 10:48 Pulse Ox 97 02/28/21 10:48 Body Mass Index 39.4 General: AX O X 3, no acute distress Face less periorbital swelling Neck supple, no JVD Resp:? CTA bilateral CVS: S1,S2,RRR, bilateral edema GI: +BS, abdomen distended, nontender bowel sounds audible Skin: No rash Neuro:? motor grossly intact Psych:? Anxious Objective Data Active Medications Acetaminophen (Acetaminophen 325 Mg Tablet) 650 mg PO Q6H PRN PRN Reason: Pain, Mild (Pain Scale 1-3) Last Admin: 02/28/21 03:39 Dose: 650 mg Documented by: ALESHIA Albuterol Sulfate (Albuterol Sulfate (0.083%) 2.5 Mg/3 Ml Vial.Neb) 2.5 mg INH PATRICK TID PRN PRN Reason: Wheezing Amlodipine Besylate (Amlodipine Besylate 5 Mg Tablet) 5 mg PO BEDTIME [facility]; Protocol Last Admin: 02/27/21 20:18 Dose: 5 mg Documented by: ALESHIA Aspirin (Aspirin Enteric Coated 81 Mg Tablet.) 81 mg PO DAILY [facility] Last Admin: 02/28/21 09:04 Dose: 81 mg Documented by: NANI Buprenorphine/Naloxone (Buprenorphine/Naloxone 8/2 Mg Film) 1 film SUBLINGUAL BID [facility] Last Admin: 02/28/21 09:06 Dose: 1 film Documented by: NANI Clonidine HCl (Clonidine Hcl 0.1 Mg Tablet) 0.1 mg PO BID [facility]; Protocol Last Admin: 02/28/21 09:04 Dose: 0.1 mg Documented by: NANI Dextrose (Dextrose 50 % 25 Gm/50 Ml Vial) 25 gm IVPUSH Q15M PRN; Protocol PRN Reason: per Hypoglycemia Standing Ord. Dextrose (Dextrose 50 % 25 Gm/50 Ml Vial) 25 gm IVPUSH Q15M PRN; Protocol PRN Reason: per Hypoglycemia Standing Ord. Diltiazem HCl (Diltiazem Hcl Cd 180 Mg Cap.Er.24h) 180 mg PO DAILY [facility]; Protocol Last Admin: 02/28/21 09:05 Dose: 180 mg Documented by: NANI Docusate Sodium (Docusate Sodium 100 Mg Capsule) 100 mg PO DAILY PRN PRN Reason: Constipation Escitalopram Oxalate (Escitalopram Oxalate 5 Mg Tablet) 5 mg PO DAILY [facility] Last Admin: 02/28/21 09:04 Dose: 5 mg Documented by: NANI Glucose (Glucose Gel 15 Gm Gel..Gram.) 15 gm PO Q15M PRN; Protocol PRN Reason: per Hypoglycemia Standing Ord. Glucose (Glucose Gel 15 Gm Gel..Gram.) 15 gm PO Q15M PRN; Protocol PRN Reason: per Hypoglycemia Standing Ord. Heparin Sodium (Porcine) (Heparin Sodium,Porcine 5,000 Unit/Ml Vial) 5,000 unit SUBCUT Q12H [facility] Last Admin: 02/28/21 03:39 Dose: 5,000 unit Documented by: ALESHIA Hydralazine HCl (Hydralazine Hcl 50 Mg Tablet) 50 mg PO TID [facility]; Protocol Last Admin: 02/28/21 09:06 Dose: 50 mg Documented by: NANI Insulin Glargine (Insulin Glargine,Hum.Rec.Anlog 100 Unit/Ml 10 Ml Vial) 24 unit SUBCUT DAILY [facility] Last Admin: 02/28/21 09:14 Dose: 24 unit Documented by: NANI Insulin Human Lispro (Insulin Lispro 100 Unit/Ml 3 Ml Vial) 0.1 - 10 unit SUBCUT QIDACHS [facility]; Protocol Last Admin: 02/28/21 11:01 Dose: Not Given Documented by: NANI Non-Admin Reason: No Insulin Coverage Mirtazapine (Mirtazapine 15 Mg Tablet) 15 mg PO BEDTIME [facility] Last Admin: 02/27/21 20:18 Dose: 15 mg Documented by: ALESHIA Multivitamins/Vitamin C (Multivitamin Tablet) 1 tab PO DAILY [facility] Last Admin: 02/28/21 09:06 Dose: Not Given Documented by: NANI Non-Admin Reason: NPO Nicotine (Nicotine 21 Mg Patch.Td24) 21 mg TRANSDERMA DAILY [facility] Last Admin: 02/28/21 09:06 Dose: 21 mg Documented by: NANI Olanzapine (Olanzapine 10 Mg Tablet) 10 mg PO BEDTIME [facility] Last Admin: 02/27/21 20:18 Dose: 10 mg Documented by: ALESHIA Ondansetron HCl (Ondansetron Hcl 4 Mg/2 Ml Vial) 4 mg IVPUSH Q8H PRN PRN Reason: Nausea and Vomiting Last Admin: 02/27/21 09:29 Dose: 4 mg Documented by: KISHOR Pharmacy Consult (Consult Rx Perform Med Rec) 1 each MISCELLANE ONCE PRN PRN Reason: Consult order Polyethylene Glycol (Polyethylene Glycol 3350 17 Gm Powd.Pack) 17 gm PO DAILY [facility] Last Admin: 02/28/21 09:07 Dose: Not Given Documented by: NANI Non-Admin Reason: NPO Tiotropium [place] (Tiotropium [place] 18 Mcg Cap.W.Dev) 1 puff INHALE DAILY [facility] Last Admin: 02/28/21 07:20 Dose: Not Given Documented by: DRAKE Non-Admin Reason: Patient Asleep Trazodone HCl (Trazodone Hcl 100 Mg Tablet) 100 - 200 mg PO BEDTIME [facility] Last Admin: 02/27/21 20:18 Dose: 100 mg Documented by: ALESHIA Labs CBC & Chem 7: 02/26/21 06:20 02/28/21 05:45 Labs: Laboratory Results - last 24 hr 02/27/21 02/27/21 02/28/21 16:08 20:09 05:45 Anion Gap 14 Estim Creat Clear Calc 6.2 Estimated GFR 4 POC Glucose 159 H 193 H Random Glucose 182 H Calcium 7.9 L D 02/28/21 02/28/21 07:35 10:44 Anion Gap Estim Creat Clear Calc Estimated GFR POC Glucose 154 H 127 H Random Glucose Calcium Assessment and Plan (1) Normocytic anemia: Status: Acute (2) Acute kidney injury superimposed on chronic kidney disease: Status: Acute (3) HTN (hypertension): Status: Acute (4) Essential hypertension: Status: Acute Assessment and Plan: 65-year-old female with past medical history of diabetes and hypertension presents to the hospital with abdominal pain found to have constipation as well as Vandana and CKD # abdominal pain resolved was likely due to constipation had multiple loose stools , abdominal pain resolved, seen by surgery no further workup warranted # VANDANA and CKD--no improvement creatinine remains elevated, status post 1 dose of IV Lasix 80 mg, IV fluid discontinued, renal Doppler study pending, no obstruction on imaging study Nephrology looking into recent biopsy report /possible hemodialysis during this hospitalization, will follow BMP Normal potassium, no acidosis, no asterixis # normocytic anemia, likely anemia of CKD - no melena or bright red blood per rectum, stool occult negative, repeat hematocrit stable, follow CBC, ferritin 124, will discuss use of Procrit with Nephrology ? # diabetes--blood sugars stable, continue Lantus and SSI, follow BS # hypertension--BP improved with increased dose of hydralazine, continue clonidine 0.1 mg b.i.d. Norvasc, 5 mg at bedtime and Cardizem 180 mg daily, hydralazine 50mg t.i.d. # history of diastolic CHF no acute decompensation ?? fluid overload likely due to acute on chronic kidney disease, no orthopnea, no PND, s/p 1 dose of IV Lasix , making urine put out 700 mL ?? Recent echo November 08 showed an EF 65-70% no evidence of regional wall motion abnormality and abnormal diastolic function # tobacco use disorder cont. nicotine patch 21 mg, smoking cessation advised # opiate use disorder will continue Suboxone # obesity weight reduction recommended, on low-calorie diet DVT prophylaxis: hepairn subq Quality Stroke Does the patient have a stroke diagnosis?: No VTE Prior VTE?: No VTE Risk Level:: Medical - moderate - high VTE Device Contraindication: Treatment Not Indicated VTE Drug Contraindication: N/A - Med Ordered
--- NOTE | 2021-02-28 13:58 | PM.PNNEP ---
Subjective Subjective Date of Service: 02/28/21 Interval history: feeling better this morning , denies uremic symptoms. NPO for renal Doppler study. Physical Exam Vital Signs: Vital Signs: Last Vital Signs Temp 97.3 F 02/28/21 10:48 Pulse 73 02/28/21 10:48 Resp 18 02/28/21 10:48 BP 119/54 L 02/28/21 10:48 Pulse Ox 97 02/28/21 10:48 Body Mass Index 39.4 Const: General: no acute distress Eyes: EOM: EOMs intact bilaterally Neck: Neck: Yes supple Resp: Auscultation: diminished lung sounds Cardio: Heart sounds: no rubs GI: Palpation (GI): Soft to palpation Neuro: General: moves all extremities Objective Data Labs CBC & Chem 7: 02/26/21 06:20 02/28/21 05:45 Labs: Laboratory Results - last 24 hr 02/27/21 02/27/21 02/28/21 16:08 20:09 05:45 Sodium 138 Potassium 4.2 Chloride 106 Carbon Dioxide 22 Anion Gap 14 BUN 68 H Creatinine 9.61 H* Estim Creat Clear Calc 6.2 Estimated GFR 4 POC Glucose 159 H 193 H Random Glucose 182 H Calcium 7.9 L D 02/28/21 02/28/21 07:35 10:44 Sodium Potassium Chloride Carbon Dioxide Anion Gap BUN Creatinine Estim Creat Clear Calc Estimated GFR POC Glucose 154 H 127 H Random Glucose Calcium Procedures Date of Service Date of Service: 02/28/21 Assessment & Plan Assessment and plan (1) Acute kidney injury superimposed on chronic kidney disease: Status: Acute Assessment and Plan: Likely due to tubular injury ; DDx- progression of her renal disease to ESRD Obstruction ruled out. Needs to treat as tubular injury; Needs to R/O vascular event Doppler of renal artery pending; Need to review her renal biopsy done few months ago Meanwhile C/W supportive care. No indication for Hemodialysis today. Lasix IV today. Preserve non dominant arm for AVF;? Labs AM. Shall F/U Time Spent With Patient Time: Total time spent is greater than 50% in coordination of care (as documented) at patient's floor/unit and/or counseling patient: Progress Note: Quality Stroke Does the patient have a stroke diagnosis?: No
[2021-02-28] MEDS: Furosemide 100 MG/10 ML VIAL 80 MG IVPUSH (14:25)
[2021-02-28 16:22] LABS: Glucose, Whole Blood 163 mg/dL (60-115)
[2021-02-28] MEDS: Insulin Lispro 100 UNIT/ML 3 ML VIAL SUBCUT ×2 (16:43→21:29)
[2021-02-28 20:19] LABS: Glucose, Whole Blood 186 mg/dL (60-115)
[2021-02-28] MEDS: Mirtazapine 15 MG TABLET PO (21:24)
[2021-02-28] MEDS: traZODone HCL 100 MG TABLET PO (21:24)
[2021-02-28] MEDS: OLANZapine 10 MG TABLET PO (21:24)
[2021-02-28] MEDS: amLODIPine Besylate 5 MG TABLET PO (21:25)
[2021-03-01] VITALS (11 sets, daily range): BP systolic 159–180; BP diastolic 69–88; PULSE 77–106; RESP 15–18; TEMP 36.3–37.2; O2SAT 98–100
[2021-03-01] MEDS: Melatonin 3 MG TABLET 6 MG PO (01:20)
[2021-03-01 07:17] LABS: Glucose, Whole Blood 125 mg/dL (60-115)
[2021-03-01] MEDS: Aspirin Enteric Coated 81 MG TABLET.DR PO (07:37)
[2021-03-01] MEDS: Multivitamin TABLET 1 TAB PO (07:38)
[2021-03-01] MEDS: dilTIAZem HCL CD 180 MG CAP.ER.24H PO (07:38)
[2021-03-01] MEDS: Escitalopram Oxalate 5 MG TABLET PO (07:38)
[2021-03-01] MEDS: cloNIDine HCL 0.1 MG TABLET PO ×2 (07:38→20:46)
[2021-03-01] MEDS: hydrALAZINE HCl 50 MG TABLET PO ×3 (07:38→20:47)
[2021-03-01] MEDS: Insulin Glargine,Hum.rec.anlog 100 UNIT/ML 10 ML VIAL 24 UNIT SUBCUT (07:38)
[2021-03-01] MEDS: Buprenorphine/Naloxone 8/2 mg FILM 1 FILM SUBLINGUAL ×2 (07:38→20:46)
[2021-03-01] MEDS: Nicotine 21 MG PATCH.TD24 TRANSDERMA (07:39)
--- NOTE | 2021-03-01 11:05 | MHC.CDI.CONC ---
CDI Concurrent Query Documentation Clarification: PHYSICIAN'S DOCUMENTATION REQUEST Date of Query: 03/01/21 1106 Patient Name: Cruz Muller Admit Date: 02/25/21 Dear Doctor, A review of the medical record indicates additional documentation may be needed. Please review below and update the documentation accordingly. Clinical Indicators: The following clinical information was noted in the record: Risk Factors/Clinical Indicators/Treatments Acute kidney failure on Chronic renal failure likey ATN. Cr. 9.85 9.61 baseline around 3.0 GFR 4 Bun 74 Nephrolgy in DDx: progression of her renal disease to ESRD? Please clarify which of the following accurately represents the patient's renal status: STAGE: Acute renal failure (with type, appropriate) on Chronic Kidney Disease (CKD) - see criteria Acute kidney injury (non-traumatic) - see criteria CKD, please provide stage - 1-5 or other ESRD - CKD V now requiring permanent dialysis and/or transplant Other (please specify) Unable to determine Criteria for VANDANA* Stages of Chronic Kidney Disease* 1. Increase in serum creatinine by ? 0.3 mg/dL Level Description GFR (?26.5 micromol/L) within 48 hours, or G1 Normal or High > 90 2. Increase in serum creatinine to ?1.5 times baseline, G2 Mildly decreased 60 ? 89 which is known or presumed to have occurred within 7 days, or G3a Mildly to moderately decreased 45 ? 59 3. Urine volume <0.5 mL/kg/hour for six hours G3b Moderately to severely decreased 30 - 44 G4 Severely decreased 15 ? 29 G5 Kidney failure < 15 *Source: Kidney Disease: Improving Global Outcomes (KDIGO) 2012 Use of terms such as suspected, likely, concern for, or probable (associated with a specific diagnosis that is being evaluated, monitored, or treated as if it exists) are acceptable and can be coded in the inpatient setting, when documented at the time of discharge. Thank you, Khloe Kyle [facility], CDIS Extension: [phone] Please use your independent medical judgment in providing your response. THIS QUERY IS PART OF THE PERMANENT MEDICAL RECORD Provider Response: CKD Stage 4
[2021-03-01 12:16] LABS: Glucose, Whole Blood 102 mg/dL (60-115)
--- NOTE | 2021-03-01 14:34 | PM.PNNEP ---
Subjective Subjective Date of Service: 03/01/21 Principal diagnosis: renal failure Interval history: seen and examined, evetns noted Physical Exam Vital Signs: Vital Signs: Last Vital Signs Temp 98.0 F 03/01/21 11:05 Pulse 84 03/01/21 11:05 Resp 18 03/01/21 11:05 BP 169/74 H 03/01/21 11:05 Pulse Ox 100 03/01/21 11:05 Body Mass Index 39.4 Const: General: no acute distress HENMT: Mouth: moist mucous membranes Eyes: EOM: EOMs intact bilaterally Neck: Neck: Yes supple Resp: Auscultation: diminished lung sounds Cardio: Jugular venous distension: no JVD Rate: regular rate Heart sounds: no rubs GI: Palpation (GI): Soft to palpation Neuro: General: moves all extremities Extrem: General: Yes edema Objective Data Labs CBC & Chem 7: 02/26/21 06:20 02/28/21 05:45 Labs: Laboratory Results - last 24 hr 02/28/21 02/28/21 03/01/21 16:15 20:15 07:04 POC Glucose 163 H 186 H 125 H 03/01/21 11:04 POC Glucose 102 Procedures Date of Service Date of Service: 03/01/21 Assessment & Plan Assessment and plan (1) Acute kidney injury superimposed on chronic kidney disease: Status: Acute Assessment and Plan: 1. VANDANA: rapid loss of renal func over the past 3 months Scr 3.0 to now 9 without obvious explanation--most c/w prog CKD and now ESRD rapid loss of renal func over the past 9 months is very concerning Scr 1.4 ( 05/2020) Scr 3.0 ( 10/2020) Kidney Bx 10/2020: limited sample and signif glomsclerosis and no tissue for IF and EM not suggeestive of Im-Cx mediated GN;prior sero unrevealing; CT show mild hydro ? signif as was apparently present in 2016 as well but not evident on U/S 02/2021 Scr 9.0 REC: move forward with Permcath and repeat kidney Bx; ask urol to see to make ure we are not missung something like retroperitoneal fibrosis; repeat UP/Cr ratio ( previously was 9 gm);check TIERRA and free light chains;hep B/C sero Time Spent With Patient Time: Total time spent is greater than 50% in coordination of care (as documented) at patient's floor/unit and/or counseling patient: Progress Note: Quality Stroke Does the patient have a stroke diagnosis?: No
--- NOTE | 2021-03-01 14:41 | P.PNIM_ITS ---
Subjective Subjective Date of Service: 03/01/21 Interval History: Being followed for acute on chronic kidney disease stage 4, denies nausea vomiting denies abdominal pain no other acute issues overnight. Review of Systems General no headache, no dizziness, no fever chills.? CVS no chest pain, no palpitation.? Respiratory no cough, no sob.? Gastrointestinal?no nausea, no vomiting,no abdominal pain Review of Systems: Yes all other systems are reviewed and are negative Physical Exam Vital Signs: Vital Signs: Last Vital Signs Temp 98.0 F 03/01/21 11:05 Pulse 84 03/01/21 11:05 Resp 18 03/01/21 11:05 BP 169/74 H 03/01/21 11:05 Pulse Ox 100 03/01/21 11:05 Body Mass Index 39.4 General: AX O X 3, no acute distress Face less periorbital swelling Neck? supple, no JVD Resp:? CTA bilateral CVS: S1,S2,RRR, GI: +BS, abdomen distended, nontender bowel sounds audible Skin: No rash Extremities bilateral edema Neuro:? motor grossly intact Psych:? Anxious Dixon clear urine Objective Data Active Medications Acetaminophen (Acetaminophen 325 Mg Tablet) 650 mg PO Q6H PRN PRN Reason: Pain, Mild (Pain Scale 1-3) Last Admin: 02/28/21 16:42 Dose: 650 mg Documented by: NANI Albuterol Sulfate (Albuterol Sulfate (0.083%) 2.5 Mg/3 Ml Vial.Neb) 2.5 mg INHALE TID PRN PRN Reason: Wheezing Amlodipine Besylate (Amlodipine Besylate 5 Mg Tablet) 5 mg PO BEDTIME PHAN; Pr otocol Last Admin: 02/28/21 21:25 Dose: 5 mg Documented by: ALESHIA Aspirin (Aspirin Enteric Coated 81 Mg Tablet.) 81 mg PO DAILY [facility] Last Admin: 03/01/21 07:37 Dose: 81 mg Documented by: NANI Buprenorphine/Naloxone (Buprenorphine/Naloxone 8/2 Mg Film) 1 film SUBLINGUAL BID PHAN Last Admin: 03/01/21 07:38 Dose: 1 film Documented by: NANI Clonidine HCl (Clonidine Hcl 0.1 Mg Tablet) 0.1 mg PO BID PHAN; Protocol Last Admin: 03/01/21 07:38 Dose: 0.1 mg Documented by: NANI Dextrose (Dextrose 50 % 25 Gm/50 Ml Vial) 25 gm IVPUSH Q15M PRN; Protocol PRN Reason: per Hypoglycemia Standing Ord. Dextrose (Dextrose 50 % 25 Gm/50 Ml Vial) 25 gm IVPUSH Q15M PRN; Protocol PRN Reason: per Hypoglycemia Standing Ord. Diltiazem HCl (Diltiazem Hcl Cd 180 Mg Cap.Er.24h) 180 mg PO DAILY [facility]; Protocol Last Admin: 03/01/21 07:38 Dose: 180 mg Documented by: NANI Docusate Sodium (Docusate Sodium 100 Mg Capsule) 100 mg PO DAILY PRN PRN Reason: Constipation Escitalopram Oxalate (Escitalopram Oxalate 5 Mg Tablet) 5 mg PO DAILY [facility] Last Admin: 03/01/21 07:38 Dose: 5 mg Documented by: NANI Glucose (Glucose Gel 15 Gm Gel..Gram.) 15 gm PO Q15M PRN; Protocol PRN Reason: per Hypoglycemia Standing Ord. Glucose (Glucose Gel 15 Gm Gel..Gram.) 15 gm PO Q15M PRN; Protocol PRN Reason: per Hypoglycemia Standing Ord. Heparin Sodium (Porcine) (Heparin Sodium,Porcine 5,000 Unit/Ml Vial) 5,000 unit SUBCUT Q12H [facility] Last Admin: 03/01/21 05:02 Dose: Not Given Documented by: ALESHIA Non-Admin Reason: Patient Asleep Hydralazine HCl (Hydralazine Hcl 50 Mg Tablet) 50 mg PO TID [facility]; Protocol Last Admin: 03/01/21 07:38 Dose: 50 mg Documented by: NANI Insulin Glargine (Insulin Glargine,Hum.Rec.Anlog 100 Unit/Ml 10 Ml Vial) 24 unit SUBCUT DAILY [facility] Last Admin: 03/01/21 07:38 Dose: 24 unit Documented by: NANI Insulin Human Lispro (Insulin Lispro 100 Unit/Ml 3 Ml Vial) 0.1 - 10 unit SUBCU T QIDACHS [facility]; Protocol Last Admin: 03/01/21 12:30 Dose: Not Given Documented by: NANI Non-Admin Reason: No Insulin Coverage Melatonin (Melatonin 3 Mg Tablet) 6 mg PO BEDTIME PRN PRN Reason: Insomnia Last Admin: 03/01/21 01:20 Dose: 6 mg Documented by: ALESHIA Mirtazapine (Mirtazapine 15 Mg Tablet) 15 mg PO BEDTIME PHAN Last Admin: 02/28/21 21:24 Dose: 15 mg Documented by: ALESHIA Multivitamins/Vitamin C (Multivitamin Tablet) 1 tab PO DAILY [facility] Last Admin: 03/01/21 07:38 Dose: 1 tab Documented by: NANI Nicotine (Nicotine 21 Mg Patch.Td24) 21 mg TRANSDERMA DAILY [facility] Last Admin: 03/01/21 07:39 Dose: 21 mg Documented by: NANI Olanzapine (Olanzapine 10 Mg Tablet) 10 mg PO BEDTIME PHAN Last Admin: 02/28/21 21:24 Dose: 10 mg Documented by: ALESHIA Ondansetron HCl (Ondansetron Hcl 4 Mg/2 Ml Vial) 4 mg IVPUSH Q8H PRN PRN Reason: Nausea and Vomiting Last Admin: 02/27/21 09:29 Dose: 4 mg Documented by: KISHOR Pharmacy Consult (Consult Rx Perform Med Rec) 1 each MISCELLANE ONCE PRN PRN Reason: Consult order Polyethylene Glycol (Polyethylene Glycol 3350 17 Gm Powd.Pack) 17 gm PO DAILY [facility] Last Admin: 03/01/21 11:49 Dose: Not Given Documented by: NANI Non-Admin Reason: Patient Refused Tiotropium Elizabeth (Tiotropium Elizabeth 18 Mcg Cap.W.Dev) 1 puff INHALE DAILY [facility] Last Admin: 03/01/21 08:07 Dose: Not Given Documented by: ULRICC Non-Admin Reason: Patient Refused Trazodone HCl (Trazodone Hcl 100 Mg Tablet) 100 - 200 mg PO BEDTIME [facility] Last Admin: 02/28/21 21:24 Dose: 100 mg Documented by: ALESHIA Labs CBC & Chem 7: 02/26/21 06:20 02/28/21 05:45 Labs: Laboratory Results - last 24 hr 02/28/21 02/28/21 03/01/21 16:15 20:15 07:04 POC Glucose 163 H 186 H 125 H 03/01/21 11:04 POC Glucose 102 Assessment and Plan (1) Acute kidney injury superimposed on chronic kidney disease: Status: Acute (2) Normocytic anemia: Status: Acute (3) HTN (hypertension): Status: Acute Assessment and Plan: 65-year-old female with past medical history of diabetes and hypertension presents to the hospital with abdominal pain found to have constipation as well as Vandana and CKD # abdominal pain resolved was likely due to constipation s/p multiple loose stools , abdominal pain resolved, seen by surgery no further workup warranted # VANDANA and CKD stage 4 --no improvement ,creatinine remains elevated, status post IV Lasix 80 mg, renal Doppler study pending, no obstruction on imaging study ?? Case discussed with Dr. Lange he will arrange for PermCath and start hemodialysis ,keep her npo overnight # normocytic anemia, likely anemia of CKD - no melena or bright red blood per rectum, stool occult negative, repeat hematocrit stable, follow CBC, ferritin 124, will discuss use of Procrit with Nephrology ? # diabetes--blood sugars stable, continue Lantus will lower dose since patient will be NPO and SSI, follow BS # hypertension--BP noted to be elevated on clonidine 0.1 mg b.i.d. Norvasc, 5 mg at bedtime,Cardizem 180 mg daily, hydralazine? 50mg? t.i.d. follow BP and adjust medication # history of diastolic CHF no acute decompensation ?? fluid overload likely due to acute on chronic kidney disease, no orthopnea, no PND, s/p IV Lasix , making urine output > 800 mL ?? Recent echo November 08 showed an EF 65-70% no evidence of regional wall motion abnormality and abnormal diastolic function # tobacco use disorder cont. nicotine patch 21 mg, smoking cessation advised # opiate use disorder will continue Suboxone # obesity weight reduction recommended, on low-calorie diet DVT prophylaxis: hepairn subq Quality Stroke Does the patient have a stroke diagnosis?: No VTE Prior VTE?: No VTE Risk Level:: Medical - moderate - high VTE Device Contraindication: Treatment Not Indicated VTE Drug Contraindication: N/A - Med Ordered
[2021-03-01 16:05] LABS: INTERNATIONAL NORM RATIO 0.9 (0.9-1.1); Prothrombin Time 10.2 SEC (9.9-13.0)
[2021-03-01 16:09] LABS: Glucose, Whole Blood 169 mg/dL (60-115)
[2021-03-01] MEDS: Heparin Sodium,Porcine 5,000 UNIT/ML VIAL 5000 UNIT SUBCUT (16:50)
[2021-03-01] MEDS: Insulin Lispro 100 UNIT/ML 3 ML VIAL SUBCUT (16:50)
[2021-03-01 19:26] LABS: Creatinine Urine 79.84 mg/dL
[2021-03-01 19:58] LABS: Total Protein Urine Random 551 mg/dL (<12)
[2021-03-01 20:22] LABS: Glucose, Whole Blood 108 mg/dL (60-115)
[2021-03-01] MEDS: Mirtazapine 15 MG TABLET PO (20:46)
[2021-03-01] MEDS: OLANZapine 10 MG TABLET PO (20:46)
[2021-03-01] MEDS: traZODone HCL 100 MG TABLET PO (20:46)
[2021-03-01] MEDS: amLODIPine Besylate 5 MG TABLET PO (20:47)
[2021-03-02] VITALS (17 sets, daily range): BP systolic 143–198; BP diastolic 57–79; PULSE 66–89; RESP 16–20; TEMP 36.3–36.8; O2SAT 92–100; BMI 42.5
[2021-03-02 07:05] LABS: INTERNATIONAL NORM RATIO 0.9 (0.9-1.1); Prothrombin Time 10.3 SEC (9.9-13.0)
[2021-03-02 07:13] LABS: Glucose, Whole Blood 129 mg/dL (60-115)
[2021-03-02 07:58] LABS: HBS Num1 14.22 mIU/mL (0-7.99); ~Hepatitis B Surface Antibody REACTIVE (Nonreactive)
[2021-03-02 08:04] LABS: HBc Num1 4.36 S/CO (0.00-0.79); HBsAGNum1 0.19 S/CO (0.00-0.99); Hepatitis B Surface Antigen Negative (Negative)
[2021-03-02 08:27] LABS: Hematocrit 32.9 % (37-47); Hemoglobin 10.5 g/dl (12.0-16.0)
[2021-03-02 08:40] LABS: Anion Gap 15 (12-20); Blood Urea Nitrogen 67 mg/dL (9-16); Calcium 8.3 mg/dL (8.4-10.2); Carbon Dioxide 23 mmol/L (22-29); Chloride 102 mmol/L (96-108); Creatinine Clr Calc Pharmacy 6.3; Estimated Glomerular Filt Rate 4; Glucose Random 117 mg/dL (60-115); Sodium 136 mmol/L (135-145)
[2021-03-02] MEDS: hydrALAZINE HCl 50 MG TABLET PO ×3 (08:40→20:41)
[2021-03-02] MEDS: Buprenorphine/Naloxone 8/2 mg FILM 1 FILM SUBLINGUAL ×2 (08:40→20:41)
[2021-03-02] MEDS: cloNIDine HCL 0.1 MG TABLET PO ×2 (08:40→20:42)
[2021-03-02] MEDS: Nicotine 21 MG PATCH.TD24 TRANSDERMA (08:41)
[2021-03-02] MEDS: Escitalopram Oxalate 5 MG TABLET PO (08:41)
[2021-03-02] MEDS: dilTIAZem HCL CD 240 MG CAP.ER.DEG PO (08:41)
[2021-03-02] MEDS: Acetaminophen 325 MG TABLET 650 MG PO ×2 (08:44→14:50)
[2021-03-02 09:44] LABS: ~HepC Num2 0.92; ~HepC Num3 0.92
[2021-03-02 09:45] LABS: HBc Num2 4.43 S/CO; HBc Num3 4.37 S/CO; Hepatitis B Core Antibody Reactive (Nonreactive)
[2021-03-02 09:46] LABS: ~HepC Num1 0.89 S/CO (0.00-0.79)
[2021-03-02 11:02] LABS: Glucose, Whole Blood 116 mg/dL (60-115)
--- NOTE | 2021-03-02 12:25 | HO.RADPN ---
RADIOLOGY Narrative Narrative: Right 14.5 fr 23 cm length Palindrome IJ catheter placed. Tip at cavoatrial junction.
--- NOTE | 2021-03-02 12:29 | P.CNUR_ITS ---
History of Present Illness Consult details Consult date: 03/01/21 Narrative: Heidy is a 65-year-old Turkmen-speaking female. Admitted to hospital through emergency department with abdominal pain and constipation Macro history significant for insulin-dependent diabetes, COPD and cardiovascu lar disease Elevated creatinine Urology consult regarding potential for lower urinary tract issues Imaging shows no evidence of hydronephrosis or urinary retention Urine chemistry completed and indicates intrinsic renal failure No acute urologic issue currently Follow Nephrology recommendations Review of Systems Constitutional: Constitutional: Denies chills and Denies fever(s) Cardiovascular: Cardiovascular: Reports no additional cardiovascular complaints and Denies syncope Respiratory: Respiratory: Denies cough Gastrointestinal: Gastrointestinal: Denies abdominal pain and Denies heartburn Genitourinary: Genitourinary: Reports as per HPI and Denies change in libido Neurologic: Denies syncope Psychiatric: Psychiatric: Denies change in libido Endocrine: Endocrine: Denies change in libido [facility] Past Medical History Medical History CHF (congestive heart failure) Constipation Diabetes mellitus Diastolic congestive heart failure Hypertension Surgical History Surgical History No pertinent past surgical history Social History Social History Household Members: None Housing: House Do you presently have visiting nurse or other home services: Yes ([employer] 7days/week) Patient Tobacco Use Status: Current everyday Tobacco user Tobacco use type: Cigarette Cigarette Packs Per Day: 1 Cigarettes Per Day: 20.0 Smoked in Last 30 Days: Yes Patient Interested in Nicotine Replacement: Yes Patient Given Instructions on How to Stop Smoking: Yes Date Education Initiated: 02/26/21 Second Hand Smoke Exposure: No Use of substances other than those prescribed or required for medical reasons: No Substance Use Type: Heroin Currently Displaying Signs/Symptoms of Drug Intoxication Withdrawal: No Any prior treatment program specific to substance use: No Have you been hit, kicked, punched, or otherwise hurt by someone within the past year? If so, by whom?: No Do you feel safe in your current relationship?: No Current Relationship Is there a partner from a previous relationship who is making you feel unsafe now?: No Are you made to feel afraid or neglected: No [facility] Practices: jehovah's witness Advance Directives: No Advance Directives Information Provided: No Advance Directives on File: No Do you have thoughts of harming others: None Do you have a plan to hurt others: No Plan Recently lost weight without trying: No How much weight loss: Not applicable Eating poorly because of decreased appetite: No Nutrition screen score: 0 Nutrition Risks: No Nutritional Risk Patient : No : No Poor oral hygiene: No service: No Current occupational status: unemployed and disabled Meds Allergies Allergy/AdvReac Type Severity Reaction Status Date / Time No Known Allergies Allergy Mild NOT Verified 12/14/20 11:50 APPLICABLE Active Medications: Current Medications Acetaminophen (Acetaminophen 325 Mg Tablet) 650 mg PO Q6H PRN PRN Reason: Pain, Mild (Pain Scale 1-3) Last Admin: 03/02/21 08:44 Dose: 650 mg Documented by: Albuterol Sulfate (Albuterol Sulfate (0.083%) 2.5 Mg/3 Ml Vial.Neb) 2.5 mg INHALE TID PRN PRN Reason: Wheezing Amlodipine Besylate (Amlodipine Besylate 10 Mg Tablet) 10 mg PO BEDTIME PHAN; Protocol Buprenorphine/Naloxone (Buprenorphine/Naloxone 8/2 Mg Film) 1 film SUBLINGUAL BID PHAN Last Admin: 03/02/21 08:40 Dose: 1 film Documented by: Clonidine HCl (Clonidine Hcl 0.1 Mg Tablet) 0.1 mg PO BID PHAN; Protocol Last Admin: 03/02/21 08:40 Dose: 0.1 mg Documented by: Dextrose (Dextrose 50 % 25 Gm/50 Ml Vial) 25 gm IVPUSH Q15M PRN; Protocol PRN Reason: per Hypoglycemia Standing Ord. Dextrose (Dextrose 50 % 25 Gm/50 Ml Vial) 25 gm IVPUSH Q15M PRN; Protocol PRN Reason: per Hypoglycemia Standing Ord. Diltiazem HCl (Diltiazem Hcl Cd 240 Mg Cap.Er.Deg) 240 mg PO DAILY PHAN; Protocol Last Admin: 03/02/21 08:41 Dose: 240 mg Documented by: Docusate Sodium (Docusate Sodium 100 Mg Capsule) 100 mg PO DAILY PRN PRN Reason: Constipation Escitalopram Oxalate (Escitalopram Oxalate 5 Mg Tablet) 5 mg PO DAILY PHAN Last Admin: 03/02/21 08:41 Dose: 5 mg Documented by: Glucose (Glucose Gel 15 Gm Gel..Gram.) 15 gm PO Q15M PRN; Protocol PRN Reason: per Hypoglycemia Standing Ord. Glucose (Glucose Gel 15 Gm Gel..Gram.) 15 gm PO Q15M PRN; Protocol PRN Reason: per Hypoglycemia Standing Ord. Heparin Sodium (Porcine) (Heparin Sodium,Porcine 5,000 Unit/Ml Vial) 5,000 unit SUBCUT Q12H [facility] Last Admin: 03/02/21 02:39 Dose: Not Given Documented by: Hydralazine HCl (Hydralazine Hcl 50 Mg Tablet) 50 mg PO TID [facility]; Protocol Last Admin: 03/02/21 08:40 Dose: 50 mg Documented by: Insulin Glargine (Insulin Glargine,Hum.Rec.Anlog 100 Unit/Ml 10 Ml Vial) 12 unit SUBCUT DAILY [facility] Last Admin: 03/02/21 08:51 Dose: Not Given Documented by: Insulin Human Lispro (Insulin Lispro 100 Unit/Ml 3 Ml Vial) 0.1 - 10 unit SUBCUT QIDACHS [facility]; Protocol Last Admin: 03/02/21 07:20 Dose: Not Given Documented by: Melatonin (Melatonin 3 Mg Tablet) 6 mg PO BEDTIME PRN PRN Reason: Insomnia Last Admin: 03/01/21 01:20 Dose: 6 mg Documented by: Mirtazapine (Mirtazapine 15 Mg Tablet) 15 mg PO BEDTIME [facility] Last Admin: 03/01/21 20:46 Dose: 15 mg Documented by: Multivitamins/Vitamin C (Multivitamin Tablet) 1 tab PO DAILY [facility] Last Admin: 03/02/21 08:52 Dose: Not Given Documented by: Nicotine (Nicotine 21 Mg Patch.Td24) 21 mg TRANSDERMA DAILY [facility] Last Admin: 03/02/21 08:41 Dose: 21 mg Documented by: Olanzapine (Olanzapine 10 Mg Tablet) 10 mg PO BEDTIME [facility] Last Admin: 03/01/21 20:46 Dose: 10 mg Documented by: Ondansetron HCl (Ondansetron Hcl 4 Mg/2 Ml Vial) 4 mg IVPUSH Q8H PRN PRN Reason: Nausea and Vomiting Last Admin: 02/27/21 09:29 Dose: 4 mg Documented by: Pharmacy Consult (Consult Rx Perform Med Rec) 1 each MISCELLANE ONCE PRN PRN Reason: Consult order Polyethylene Glycol (Polyethylene Glycol 3350 17 Gm Powd.Pack) 17 gm PO DAILY [facility] Last Admin: 03/02/21 08:52 Dose: Not Given Documented by: Tiotropium [place] (Tiotropium [place] 18 Mcg Cap.W.Dev) 1 puff INHALE DAILY S Last Admin: 03/02/21 08:19 Dose: Not Given Documented by: Trazodone HCl (Trazodone Hcl 100 Mg Tablet) 100 - 200 mg PO BEDTIME [facility] Last Admin: 03/01/21 20:46 Dose: 100 mg Documented by: Home Medications Medication Instructions Recorded Confirmed Last Taken Type amlodipine 5 mg tablet 5 mg PO BEDTIME 10/22/20 02/25/21 Unknown History aspirin 81 mg tablet,delayed 81 mg PO QAM 10/22/20 02/25/21 Unknown History release buprenorphine 8 mg-naloxone 2 mg 1 strip SUBLINGUAL BID 10/22/20 02/25/21 Unknown History sublingual film (Suboxone) clonidine HCl 0.1 mg tablet 0.1 mg PO BID 10/22/20 02/25/21 Unknown History diclofenac sodium 1 % topical gel 2 g TOPICAL QID 10/22/20 02/25/21 Unknown History diltiazem HCl 180 mg 180 mg PO QAM 10/22/20 02/25/21 Unknown History capsule,extended release 24 hr docusate sodium 100 mg capsule 1 - 2 cap PO BEDTIME PRN 10/22/20 02/25/21 Unknown History escitalopram oxalate 5 mg tablet 5 mg PO QAM 10/22/20 02/25/21 Unknown History hydralazine 25 mg tablet 25 mg PO TID 10/22/20 02/25/21 Unknown History insulin glargine 100 unit/mL (3 24 unit SUBCUT DAILY 10/22/20 02/25/21 Unknown History mL) subcutaneous pen (Lantus Solostar U-100 Insulin) insulin lispro 100 unit/mL 4 - 12 unit SUBCUT TIDAC 10/22/20 02/25/21 Unknown History subcutaneous pen (Humalog KwikPen (U-100) Insulin) mirtazapine 15 mg tablet 15 mg PO BEDTIME 10/22/20 02/25/21 Unknown History multivitamin (One Daily 1 tab PO QAM 10/22/20 02/25/21 Unknown History Multivitamin) tiotropium bromide 18 mcg capsule 1 cap INHALATION DAILY 10/22/20 02/25/21 Unk nown History with inhalation device (Spiriva with HandiHaler) trazodone 100 mg tablet 1 - 2 tab PO BEDTIME 10/22/20 02/25/21 Unknown History albuterol sulfate 1 amp INHALATION TID PRN 02/25/21 02/25/21 Unknown History olanzapine 10 mg tablet 1 tab PO BEDTIME 02/25/21 02/25/21 Unknown History Physical Exam Vital Signs: Vital Signs: Last Vital Signs Temp 98.2 F 03/02/21 07:16 Pulse 70 03/02/21 08:41 Resp 18 03/02/21 07:16 BP 178/77 H 03/02/21 08:41 Pulse Ox 99 03/02/21 07:16 Body Mass Index 42.5 Const: General: cooperative, healthy appearing, comfortable and no acute dist ress Orientation/consciousness: patient oriented x3 HENMT: Face and sinus: Yes normal facial exam Mouth: moist mucous membranes Neck: Neck: Yes normal visual inspection, Yes full ROM and Yes trachea midline Chest: Chest palpation & inspection: normal inspection of the chest Resp: Effort & Inspection: normal respiratory effort, able to speak in complete sentences and no respiratory distress GI: Inspection: Yes normal to inspection Back/Spine/Pelvis: Cervical Spine: normal cervical lordosis Thoracic/Lumbar Spine: thoracic and lumbar spine normal to inspection Skin: General skin exam: no rashes or lesions noted Neuro: General: patient oriented x3, gait normal, tone normal and moves all extremities Extrem: General: Yes normal to inspection and Yes capillary refill normal Results Labs Result diagrams: 03/02/21 Unknown 03/02/21 Unknown Labs: Abnormal lab results 03/01/21 03/01/21 03/02/21 Range/Units 16:03 18:24 07:10 Hgb (12.0-16.0) g/dl Hct (37-47) % BUN (9-16) mg/dL Creatinine (0.5-1.4) mg/dL POC Glucose 169 H 129 H (60-115) mg/dL Random Glucose (60-115) mg/dL Calcium (8.4-10.2) mg/dL U Random Total Protein 551 H (<12) mg/dL 03/02/21 03/02/21 03/02/21 Range/Units 10:53 Unknown Unknown Hgb 10.5 L D (12.0-16.0) g/dl Hct 32.9 L D (37-47) % BUN 67 H (9-16) mg/dL Creatinine 9.87 H* (0.5-1.4) mg/dL POC Glucose 116 H (60-115) mg/dL Random Glucose 117 H (60-115) mg/dL Calcium 8.3 L (8.4-10.2) mg/dL U Random Total Protein (<12) mg/dL Short CBC 03/02/21 Range/Units Unknown Hgb 10.5 L D (12.0-16.0) g/dl Hct 32.9 L D (37-47) % BMP 03/02/21 Unknown Sodium 136 Potassium 4.0 Chloride 102 Carbon Dioxide 23 BUN 67 H Creatinine 9.87 H* Calcium 8.3 L Urine 02/25/21 Range/Units 20:51 Urine Color STRAW Urine Appearance CLEAR Urine pH 6.5 (5.0-8.0) Ur Specific [place] 1.015 (1.005-1.025) Urine Protein 2+ H (NEG-TRACE) MG/DL Urine Glucose (UA) 250 H (NEG) MG/DL All other labs normal. Assessment and Plan (1) Acute kidney injury superimposed on chronic kidney disease: Status: Acute No evidence of lower urinary tract obstruction Follow Nephrology recommendations Procedures Date of Service Date of Service: 03/02/21
--- NOTE | 2021-03-02 13:15 | P.PNIM_ITS ---
Subjective Subjective Date of Service: 03/02/21 Interval History: Being followed for acute on chronic kidney disease, no acute issues overnight, no nausea no vomiting, no abdominal pain , noted to have elevated blood pressures. Review of Systems General no headache, no dizziness, no fever chills.? CVS no chest pain, no palpitation.? Respiratory no cough, no sob.? Gastrointestinal?no nausea, no vomiting,no abdominal pain Review of Systems: Yes all other systems are reviewed and are negative Physical Exam Vital Signs: Vital Signs: Last Vital Signs Temp 97.4 F 03/02/21 12:40 Pulse 74 03/02/21 12:55 Resp 16 03/02/21 12:55 BP 154/65 H 03/02/21 12:55 Pulse Ox 94 03/02/21 12:55 Body Mass Index 42.5 General: AX O X 3, no acute distress Face less periorbital swelling Neck? supple, no JVD Resp:? CTA bilateral CVS: S1,S2,RRR, GI: +BS, abdomen distended, nontender bowel sounds audible Skin: No rash Extremities bilateral leg edema Neuro:? motor grossly intact Psych:? Anxious [place] clear urine Objective Data Active Medications Acetaminophen (Acetaminophen 325 Mg Tablet) 650 mg PO Q6H PRN PRN Reason: Pain, Mild (Pain Scale 1-3) Last Admin: 03/02/21 08:44 Dose: 650 mg Documented by: TOM Albuterol Sulfate (Albuterol Sulfate (0.083%) 2.5 Mg/3 Ml Vial.Neb) 2.5 mg INHALE TID PRN PRN Reason: Wheezing Amlodipine Besylate (Amlodipine Besylate 10 Mg Tablet) 10 mg PO BEDTIME PHAN; Protocol Buprenorphine/Naloxone (Buprenorphine/Naloxone 8/2 Mg Film) 1 film SUBLINGUAL BID PHAN Last Admin: 03/02/21 08:40 Dose: 1 film Documented by: TOM Clonidine HCl (Clonidine Hcl 0.1 Mg Tablet) 0.1 mg PO BID PHAN; Protocol Last Admin: 03/02/21 08:40 Dose: 0.1 mg Documented by: TOM Dextrose (Dextrose 50 % 25 Gm/50 Ml Vial) 25 gm IVPUSH Q15M PRN; Protocol PRN Reason: per Hypoglycemia Standing Ord. Dextrose (Dextrose 50 % 25 Gm/50 Ml Vial) 25 gm IVPUSH Q15M PRN; Protocol PRN Reason: per Hypoglycemia Standing Ord. Diltiazem HCl (Diltiazem Hcl Cd 240 Mg Cap.Er.Deg) 240 mg PO DAILY PHAN; Pr otocol Last Admin: 03/02/21 08:41 Dose: 240 mg Documented by: TOM Docusate Sodium (Docusate Sodium 100 Mg Capsule) 100 mg PO DAILY PRN PRN Reason: Constipation Escitalopram Oxalate (Escitalopram Oxalate 5 Mg Tablet) 5 mg PO DAILY [facility] Last Admin: 03/02/21 08:41 Dose: 5 mg Documented by: TOM Glucose (Glucose Gel 15 Gm Gel..Gram.) 15 gm PO Q15M PRN; Protocol PRN Reason: per Hypoglycemia Standing Ord. Glucose (Glucose Gel 15 Gm Gel..Gram.) 15 gm PO Q15M PRN; Protocol PRN Reason: per Hypoglycemia Standing Ord. Heparin Sodium (Porcine) (Heparin Sodium,Porcine 5,000 Unit/Ml Vial) 5,000 unit SUBCUT Q12H [facility] Last Admin: 03/02/21 02:39 Dose: Not Given Documented by: TYRA Non-Admin Reason: surg procedure Hydralazine HCl (Hydralazine Hcl 50 Mg Tablet) 50 mg PO TID [facility]; Protocol Last Admin: 03/02/21 08:40 Dose: 50 mg Documented by: TOM Insulin Glargine (Insulin Glargine,Hum.Rec.Anlog 100 Unit/Ml 10 Ml Vial) 12 unit SUBCUT DAILY [facility] Last Admin: 03/02/21 08:51 Dose: Not Given Documented by: TOM Non-Admin Reason: NPO Insulin Human Lispro (Insulin Lispro 100 Unit/Ml 3 Ml Vial) 0.1 - 10 unit SUBCUT QIDACHS [facility]; Protocol Last Admin: 03/02/21 12:51 Dose: Not Given Documented by: TOM Non-Admin Reason: No Insulin Coverage Melatonin (Melatonin 3 Mg Tablet) 6 mg PO BEDTIME PRN PRN Reason: Insomnia Last Admin: 03/01/21 01:20 Dose: 6 mg Documented by: ALESHIA Mirtazapine (Mirtazapine 15 Mg Tablet) 15 mg PO BEDTIME [facility] Last Admin: 03/01/21 20:46 Dose: 15 mg Documented by: TYRA Multivitamins/Vitamin C (Multivitamin Tablet) 1 tab PO DAILY [facility] Last Admin: 03/02/21 08:52 Dose: Not Given Documented by: TOM Non-Admin Reason: NPO Nicotine (Nicotine 21 Mg Patch.Td24) 21 mg TRANSDERMA DAILY [facility] Last Admin: 03/02/21 08:41 Dose: 21 mg Documented by: TOM Olanzapine (Olanzapine 10 Mg Tablet) 10 mg PO BEDTIME [facility] Last Admin: 03/01/21 20:46 Dose: 10 mg Documented by: TYRA Ondansetron HCl (Ondansetron Hcl 4 Mg/2 Ml Vial) 4 mg IVPUSH Q8H PRN PRN Reason: Nausea and Vomiting Last Admin: 02/27/21 09:29 Dose: 4 mg Documented by: KISHOR Pharmacy Consult (Consult Rx Perform Med Rec) 1 each MISCELLANE ONCE PRN PRN Reason: Consult order Polyethylene Glycol (Polyethylene Glycol 3350 17 Gm Powd.Pack) 17 gm PO DAILY [facility] Last Admin: 03/02/21 08:52 Dose: Not Given Documented by: TOM Non-Admin Reason: NPO Tiotropium [place] (Tiotropium [place] 18 Mcg Cap.W.Dev) 1 puff INHALE DAILY [facility] Last Admin: 03/02/21 08:19 Dose: Not Given Documented by: DOLORES Non-Admin Reason: Patient Refused Trazodone HCl (Trazodone Hcl 100 Mg Tablet) 100 - 200 mg PO BEDTIME [facility] Last Admin: 03/01/21 20:46 Dose: 100 mg Documented by: TYRA Labs CBC & Chem 7: 03/02/21 Unknown 03/02/21 Unknown Labs: Laboratory Results - last 24 hr 03/01/21 03/01/21 03/01/21 15:47 15:47 16:03 PT 10.2 INR 0.9 Anion Gap Estim Creat Clear Calc Estimated GFR POC Glucose 169 H Random Glucose Calcium U Random Total Protein Ur Random Sodium Urine Creatinine Hep Bs Antigen Negative Hep Bs Antibody REACTIVE Hep B Core Total Ab Reactive Hep B Core IgM Ab Cancelled Hepatitis C Ab (EIA) 03/01/21 03/01/21 03/01/21 18:24 18:24 20:08 PT INR Anion Gap Estim Creat Clear Calc Estimated GFR POC Glucose 108 Random Glucose Calcium U Random Total Protein 551 H Ur Random Sodium Cancelled 36.0 Urine Creatinine 79.84 Hep Bs Antigen Hep Bs Antibody Hep B Core Total Ab Hep B Core IgM Ab Hepatitis C Ab (EIA) 03/02/21 03/02/21 03/02/21 05:53 07:10 10:53 PT 10.3 INR 0.9 Anion Gap Estim Creat Clear Calc Estimated GFR POC Glucose 129 H 116 H Random Glucose Calcium U Random Total Protein Ur Random Sodium Urine Creatinine Hep Bs Antigen Hep Bs Antibody Hep B Core Total Ab Hep B Core IgM Ab Hepatitis C Ab (EIA) 03/02/21 Unknown PT INR Anion Gap 15 Estim Creat Clear Calc 6.3 Estimated GFR 4 POC Glucose Random Glucose 117 H Calcium 8.3 L U Random Total Protein Ur Random Sodium Urine Creatinine Hep Bs Antigen Hep Bs Antibody Hep B Core Total Ab Hep B Core IgM Ab Hepatitis C Ab (EIA) Assessment and Plan (1) Normocytic anemia: Status: Acute (2) Acute kidney injury superimposed on chronic kidney disease: Status: Acute (3) HTN (hypertension): Status: Acute Assessment and Plan: 65-year-old female with past medical history of diabetes and hypertension presents to the hospital with abdominal pain found to have constipation as well as Vandana and CKD # abdominal pain resolved was likely due to constipation s/p multiple loose stools , seen by surgery no further workup warranted # VANDANA and CKD stage 4 --no improvement ,creatinine remains elevated, status post IV Lasix 80 mg, renal Doppler 03/01 Nondiagnostic exam, no obstruction on imaging study ?? permcath placed today, hemodialysis as per Renal Case discussed with Dr. Lange he rec renal biopsy , due to rapid loss of renal function over the past 9 months Renal biopsy scheduled for March 04 since aspirin needed to be held for 3 days, last dose 03/01 Recent renal biopsy at [facility] was inconclusive due to limited sample Seen by Urology they feel it is intrinsic renal failure. # normocytic anemia, likely anemia of CKD - no melena or bright red blood per rectum, stool occult negative, repeat hematocrit improved Procrit as per Nephrology ? # diabetes--blood sugars stable, continue Lantus dose lowered since por po intake, cont. SSI, follow BS # hypertension--BP noted to be elevated on clonidine 0.1 mg b.i.d. Norvasc, 5 mg at bedtime,Cardizem 180 mg daily,and hydralazine? 50mg? t.i.d. Will increase dose of Norvasc to 10 mg daily, increase Cardizem to 240 daily and follow BP # history of diastolic CHF no acute decompensation ?? fluid overload likely due to acute on chronic kidney disease, no orthopnea, no PND, s/p IV Lasix , making urine .13ml/kg/hr . ?? Recent echo November 08 showed an EF 65-70% no evidence of regional wall motion abnormality and abnormal diastolic function # tobacco use disorder cont. nicotine patch 21 mg, smoking cessation advised # opiate use disorder will continue Suboxone # obesity weight reduction recommended, on low-calorie diet DVT prophylaxis: hepairn subq Quality Stroke Does the patient have a stroke diagnosis?: No VTE Prior VTE?: No VTE Risk Level:: Medical - moderate - high VTE Device Contraindication: Treatment Not Indicated VTE Drug Contraindication: N/A - Med Ordered
--- NOTE | 2021-03-02 14:03 | MHC.CM.PN ---
per rounds pt to have a biopsy 03/04 and then she will start dialysis ..no dc date at this time
[2021-03-02 15:46] LABS: Calcium (PTHI) 8.3 mg/dL (8.6-10.4); PTHI 168 pg/mL (14-64)
[2021-03-02 15:52] LABS: Glucose, Whole Blood 132 mg/dL (60-115)
[2021-03-02 15:55] LABS: Myeloperoxidase Antibody <1.0 AI; Proteinase 3 PR3 Antibodies <1.0 AI
--- NOTE | 2021-03-02 17:29 | PM.PNNEP ---
Subjective Subjective Date of Service: 03/02/21 Principal diagnosis: renal failure Interval history: Seen and examined,e vents noted Physical Exam Vital Signs: Vital Signs: Last Vital Signs Temp 98.2 F 03/02/21 15:17 Pulse 69 03/02/21 15:17 Resp 20 03/02/21 15:17 BP 163/71 H 03/02/21 15:17 Pulse Ox 100 03/02/21 15:17 Body Mass Index 42.5 Const: General: no acute distress HENMT: Mouth: moist mucous membranes Eyes: EOM: EOMs intact bilaterally Neck: Neck: Yes supple Resp: Auscultation: diminished lung sounds Cardio: Jugular venous distension: no JVD Rate: regular rate Heart sounds: no rubs GI: Palpation (GI): Soft to palpation Neuro: General: moves all extremities Extrem: General: Yes edema Objective Data Labs CBC & Chem 7: 03/02/21 Unknown 03/02/21 Unknown Labs: Laboratory Results - last 24 hr 03/01/21 03/01/21 03/01/21 15:47 15:47 15:47 Hgb Hct PT INR Sodium Potassium Chloride Carbon Dioxide Anion Gap BUN Creatinine Estim Creat Clear Calc Estimated GFR POC Glucose Random Glucose Calcium PTH Intact 168 H Calcium (PTH Intact) 8.3 L U Random Total Protein Ur Random Sodium Urine Creatinine Proteinase 3 (PR3) Ab <1.0 Myeloperoxidase Ab <1.0 Hep Bs Antigen Negative Hep Bs Antibody REACTIVE Hep B Core Total Ab Reactive Hep B Core IgM Ab Cancelled Hepatitis C Ab (EIA) 03/01/21 03/01/21 03/01/21 18:24 18:24 20:08 Hgb Hct PT INR Sodium Potassium Chloride Carbon Dioxide Anion Gap BUN Creatinine Estim Creat Clear Calc Estimated GFR POC Glucose 108 Random Glucose Calcium PTH Intact Calcium (PTH Intact) U Random Total Protein 551 H Ur Random Sodium Cancelled 36.0 Urine Creatinine 79.84 Proteinase 3 (PR3) Ab Myeloperoxidase Ab Hep Bs Antigen Hep Bs Antibody Hep B Core Total Ab Hep B Core IgM Ab Hepatitis C Ab (EIA) 03/02/21 03/02/21 03/02/21 05:53 07:10 10:53 Hgb Hct PT 10.3 INR 0.9 Sodium Potassium Chloride Carbon Dioxide Anion Gap BUN Creatinine Estim Creat Clear Calc Estimated GFR POC Glucose 129 H 116 H Random Glucose Calcium PTH Intact Calcium (PTH Intact) U Random Total Protein Ur Random Sodium Urine Creatinine Proteinase 3 (PR3) Ab Myeloperoxidase Ab Hep Bs Antigen Hep Bs Antibody Hep B Core Total Ab Hep B Core IgM Ab Hepatitis C Ab (EIA) 03/02/21 03/02/21 03/02/21 15:45 Unknown Unknown Hgb 10.5 L D Hct 32.9 L D PT INR Sodium 136 Potassium 4.0 Chloride 102 Carbon Dioxide 23 Anion Gap 15 BUN 67 H Creatinine 9.87 H* Estim Creat Clear Calc 6.3 Estimated GFR 4 POC Glucose 132 H Random Glucose 117 H Calcium 8.3 L PTH Intact Calcium (PTH Intact) U Random Total Protein Ur Random Sodium Urine Creatinine Proteinase 3 (PR3) Ab Myeloperoxidase Ab Hep Bs Antigen Hep Bs Antibody Hep B Core Total Ab Hep B Core IgM Ab Hepatitis C Ab (EIA) Procedures Date of Service Date of Service: 03/02/21 Assessment & Plan Assessment and plan (1) Acute kidney injury superimposed on chronic kidney disease: Start date: 03/02/21 Start time: 17:30 Status: Acute Assessment and Plan: 1. VANDANA: rapid loss of renal func over the past 3 months Scr 3.0 to now 9 without obvious explanation--most c/w prog CKD and now ESRD rapid loss of renal func over the past 9 months is very concerning Scr 1.4 ( 05/2020) Scr 3.0 ( 10/2020) Kidney Bx 10/2020: limited sample and signif glomsclerosis and no tissue for IF and EM not suggeestive of Im-Cx mediated GN;prior sero unrevealing; CT show mild hydro ? signif as was apparently present in 2016 as well but not evident on U/S 02/2021 Scr 9.0 REC: move forward with Permcath today and start HD and repeat kidney Bx; ask urol to see to make ure we are not missung something like retroperitoneal fibrosis; repeat UP/Cr ratio ( previously was 9 gm);check TIERRA and free light chains;hep B/C sero Time Spent With Patient Time: Total time spent is greater than 50% in coordination of care (as documented) at patient's floor/unit and/or counseling patient: Progress Note: Quality Stroke Does the patient have a stroke diagnosis?: No
--- NOTE | 2021-03-02 19:31 | PC.NURSE ---
Permacath site started bleeding when patient was moving her arm. No pain but small amount of bright red blood visible. Dea Godoy and Dr. Zuleta notified. Site continued to bleed even when patient's arm was immobilized to limit movement, Dr. Zuleta recommended redressing the site.
[2021-03-02 20:39] LABS: Glucose, Whole Blood 155 mg/dL (60-115)
[2021-03-02] MEDS: traZODone HCL 100 MG TABLET PO (20:41)
[2021-03-02] MEDS: amLODIPine Besylate 10 MG TABLET PO (20:41)
[2021-03-02] MEDS: OLANZapine 10 MG TABLET PO (20:41)
[2021-03-02] MEDS: Mirtazapine 15 MG TABLET PO (20:42)
--- NOTE | 2021-03-02 21:10 | PC.NURSE ---
this rn was contacted by Dr. Zuleta, asked to assess bleeding from new right protacath. afte consulting with , dressing was changed, surgicell was applied, two large semi-clotted clumps of blood and some dark red blood to saturated gauze noted. surgicell with good effect, site dressing now MD ZAYRA updated
[2021-03-02 22:42] LABS: ANA Pattern 2 Nuclear, Homogeneous; ANA Titer 2 1:40 titer; Anti Nuclear Antibody Screen POSITIVE (NEGATIVE); Anti Nuclear Antibody Titer 1:40 titer
[2021-03-03] VITALS (10 sets, daily range): BP systolic 146–183; BP diastolic 67–76; PULSE 79–93; RESP 14–20; TEMP 36.7–37.3; O2SAT 91–100; BMI 40.8
[2021-03-03 07:15] LABS: Glucose, Whole Blood 173 mg/dL (60-115)
[2021-03-03] MEDS: Insulin Lispro 100 UNIT/ML 3 ML VIAL SUBCUT ×2 (07:51→17:08)
[2021-03-03] MEDS: hydrALAZINE HCl 50 MG TABLET PO ×3 (07:52→20:49)
[2021-03-03] MEDS: Nicotine 21 MG PATCH.TD24 TRANSDERMA (07:52)
[2021-03-03] MEDS: Buprenorphine/Naloxone 8/2 mg FILM 1 FILM SUBLINGUAL ×2 (07:52→20:49)
[2021-03-03] MEDS: Escitalopram Oxalate 5 MG TABLET PO (07:52)
[2021-03-03] MEDS: polyethylene glycoL 3350 17 GM POWD.PACK PO (07:52)
[2021-03-03] MEDS: Multivitamin TABLET 1 TAB PO (07:53)
[2021-03-03] MEDS: cloNIDine HCL 0.1 MG TABLET PO ×2 (07:53→20:49)
[2021-03-03] MEDS: dilTIAZem HCL CD 240 MG CAP.ER.DEG PO (07:53)
[2021-03-03] MEDS: Insulin Glargine,Hum.rec.anlog 100 UNIT/ML 10 ML VIAL 12 UNIT SUBCUT (08:07)
[2021-03-03] MEDS: Acetaminophen 325 MG TABLET 650 MG PO (13:54)
[2021-03-03] MEDS: Heparin Sodium,Porcine 5,000 UNIT/ML VIAL 5000 UNIT SUBCUT (15:10)
[2021-03-03 16:26] LABS: Glucose, Whole Blood 175 mg/dL (60-115)
--- NOTE | 2021-03-03 17:53 | HO.PM.IMPN ---
Subjective Subjective Date of Service: 03/03/21 Interval History: started HD today no chest pain some nausea Review of Systems Review of Systems: Yes all other systems are reviewed and are negative Physical Exam Vital Signs: Vital Signs: Last Vital Signs Temp 98.6 F 03/03/21 15:34 Pulse 82 03/03/21 15:34 Resp 14 03/03/21 15:34 BP 152/71 H 03/03/21 15:34 Pulse Ox 100 03/03/21 15:34 Body Mass Index 40.8 Gen: in no acute distress HEENT: sclera anicteric, moist mucus membranes Neck: supple, R subclavian Permacath Lungs: clear to auscultation bilaterally Heart: regular rate and rhythm, no murmurs Abd: soft, non-tender, non-distended Ext: no edema Skin: warm/well-perfused Neuro: alert and oriented x3, no focal findings Psych: appropriate affect Objective Data Active Medications Acetaminophen (Acetaminophen 325 Mg Tablet) 650 mg PO Q6H PRN PRN Reason: Pain, Mild (Pain Scale 1-3) Last Admin: 03/03/21 13:54 Dose: 650 mg Documented by: TOM Albuterol Sulfate (Albuterol Sulfate (0.083%) 2.5 Mg/3 Ml Vial.Neb) 2.5 mg INHALE TID PRN PRN Reason: Wheezing Amlodipine Besylate (Amlodipine Besylate 10 Mg Tablet) 10 mg PO BEDTIME [facility]; Protocol Last Admin: 03/02/21 20:41 Dose: 10 mg Documented by: TYRA Buprenorphine/Naloxone (Buprenorphine/Naloxone 8/2 Mg Film) 1 film SUBLINGUAL BID [facility] Last Admin: 03/03/21 07:52 Dose: 1 film Documented by: TOM Clonidine HCl (Clonidine Hcl 0.1 Mg Tablet) 0.1 mg PO BID [facility]; Protocol Last Admin: 03/03/21 07:53 Dose: 0.1 mg Documented by: TOM Dextrose (Dextrose 50 % 25 Gm/50 Ml Vial) 25 gm IVPUSH Q15M PRN; Protocol PRN Reason: per Hypoglycemia Standing Ord. Dextrose (Dextrose 50 % 25 Gm/50 Ml Vial) 25 gm IVPUSH Q15M PRN; Protocol PRN Reason: per Hypoglycemia Standing Ord. Diltiazem HCl (Diltiazem Hcl Cd 240 Mg Cap.Er.Deg) 240 mg PO DAILY [facility]; Protocol Last Admin: 03/03/21 07:53 Dose: 240 mg Documented by: TOM Docusate Sodium (Docusate Sodium 100 Mg Capsule) 100 mg PO DAILY PRN PRN Reason: Constipation Escitalopram Oxalate (Escitalopram Oxalate 5 Mg Tablet) 5 mg PO DAILY [facility] Last Admin: 03/03/21 07:52 Dose: 5 mg Documented by: TOM Glucose (Glucose Gel 15 Gm Gel..Gram.) 15 gm PO Q15M PRN; Protocol PRN Reason: per Hypoglycemia Standing Ord. Glucose (Glucose Gel 15 Gm Gel..Gram.) 15 gm PO Q15M PRN; Protocol PRN Reason: per Hypoglycemia Standing Ord. Heparin Sodium (Porcine) (Heparin Sodium,Porcine 5,000 Unit/Ml Vial) 5,000 unit SUBCUT Q12H [facility] Last Admin: 03/03/21 15:10 Dose: 5,000 unit Documented by: TOM Hydralazine HCl (Hydralazine Hcl 50 Mg Tablet) 50 mg PO TID [facility]; Protocol Last Admin: 03/03/21 15:10 Dose: 50 mg Documented by: TOM Insulin Glargine (Insulin Glargine,Hum.Rec.Anlog 100 Unit/Ml 10 Ml Vial) 12 unit SUBCUT DAILY [facility] Last Admin: 03/03/21 08:07 Dose: 12 unit Documented by: TOM Insulin Human Lispro (Insulin Lispro 100 Unit/Ml 3 Ml Vial) 0.1 - 10 unit SUBCUT QIDACHS [facility]; Protocol Last Admin: 03/03/21 17:08 Dose: 2 unit Documented by: TOM Melatonin (Melatonin 3 Mg Tablet) 6 mg PO BEDTIME PRN PRN Reason: Insomnia Last Admin: 03/01/21 01:20 Dose: 6 mg Documented by: ALESHIA Mirtazapine (Mirtazapine 15 Mg Tablet) 15 mg PO BEDTIME [facility] Last Admin: 03/02/21 20:42 Dose: 15 mg Documented by: TYRA Multivitamins/Vitamin C (Multivitamin Tablet) 1 tab PO DAILY [facility] Last Admin: 03/03/21 07:53 Dose: 1 tab Documented by: HO.DOBROB Nicotine (Nicotine 21 Mg Patch.Td24) 21 mg TRANSDERMA DAILY [facility] Last Admin: 03/03/21 07:52 Dose: 21 mg Documented by: TOM Olanzapine (Olanzapine 10 Mg Tablet) 10 mg PO BEDTIME [facility] Last Admin: 03/02/21 20:41 Dose: 10 mg Documented by: TYRA Ondansetron HCl (Ondansetron Hcl 4 Mg/2 Ml Vial) 4 mg IVPUSH Q8H PRN PRN Reason: Nausea and Vomiting Last Admin: 02/27/21 09:29 Dose: 4 mg Documented by: KISHOR Pharmacy Consult (Consult Rx Perform Med Rec) 1 each MISCELLANE ONCE PRN PRN Reason: Consult order Polyethylene Glycol (Polyethylene Glycol 3350 17 Gm Powd.Pack) 17 gm PO DAILY [facility] Last Admin: 03/03/21 07:52 Dose: 17 gm Documented by: TOM Tiotropium [place] (Tiotropium [place] 18 Mcg Cap.W.Dev) 1 puff INHALE DAILY [facility] Last Admin: 03/03/21 08:13 Dose: 1 puff Documented by: ZORAIDA Trazodone HCl (Trazodone Hcl 100 Mg Tablet) 100 - 200 mg PO BEDTIME [facility] Last Admin: 03/02/21 20:41 Dose: 100 mg Documented by: TYRA Labs CBC & Chem 7: 03/02/21 Unknown 03/02/21 Unknown Labs: Laboratory Results - last 24 hr 03/01/21 03/02/21 03/03/21 15:47 20:35 07:04 POC Glucose 155 H 173 H TIERRA Screen POSITIVE A TIERRA Titer 1:40 H TIERRA Titer 2 1:40 H TIERRA Titer 3 TNP TIERRA Pattern SEE NOTE TIERRA Pattern 2 Nuclear, Homogeneous A TIERRA Pattern 3 TNP 03/03/21 16:22 POC Glucose 175 H TIERRA Screen TIERRA Titer TIERRA Titer 2 TIERRA Titer 3 TIERRA Pattern TIERRA Pattern 2 TIERRA Pattern 3 Assessment and Plan (1) Normocytic anemia: Status: Acute (2) Acute kidney injury superimposed on chronic kidney disease: Status: Acute (3) HTN (hypertension): Status: Acute Assessment and Plan: hospital d#7 65yo F with DM2, HTN presenting with abd pain and found to have VANDANA/CKD # VANDANA/CKD4 progressed to ESRD - Permacath placed 03/02, start HD today. prior renal biopsy at [facility] inconclusive due to limited sample, repeat renal biopsy will be done tomorrow. HBV/HCV + serum FLCR pending. no obstruction on renal US; per Urology no postrenal component # anemia of CKD - epo as per Nephrology # chronic HFpEF - fluid overload due to VANDANA- got IV furosemide - recent TTE 11/08 showed LVEF 65-70%, no RWMA, abnormal diastolic function # HTN - continue amlodipine, clonidine, diltiazem, hydralazine # COPD - continue LAMA # DM2 - basal/bolus insulin # constipation - resolved # tobacco abuse - NRT # opioid use disorder - continue Suboxone # mood disorder - continue trazodone, mirtapazine, olanazpine # morbid obesity - t/c outpt bariatrics ref # VTE ppx - UFH # dispo - home with VNA after induction HD and outpt HD spot secured Quality Stroke Does the patient have a stroke diagnosis?: No VTE Prior VTE?: No VTE Risk Level:: Medical - moderate - high VTE Device Contraindication: Treatment Not Indicated VTE Drug Contraindication: N/A - Med Ordered
--- NOTE | 2021-03-03 18:25 | P.PNNP_ITS ---
Subjective Subjective Date of Service: 03/03/21 Principal diagnosis: renal failure Interval history: seen and examined, events noted Physical Exam Vital Signs: Vital Signs: Last Vital Signs Temp 98.6 F 03/03/21 15:34 Pulse 82 03/03/21 15:34 Resp 14 03/03/21 15:34 BP 152/71 H 03/03/21 15:34 Pulse Ox 100 03/03/21 15:34 Body Mass Index 40.8 Const: General: no acute distress HENMT: Mouth: moist mucous membranes Eyes: EOM: EOMs intact bilaterally Neck: Neck: Yes supple Resp: Auscultation: diminished lung sounds Cardio: Jugular venous distension: no JVD Rate: regular rate Heart sounds: no rubs GI: Palpation (GI): Soft to palpation Neuro: General: moves all extremities Extrem: General: Yes edema Objective Data Labs CBC & Chem 7: 03/02/21 Unknown 03/02/21 Unknown Labs: Laboratory Results - last 24 hr 03/01/21 03/02/21 03/03/21 15:47 20:35 07:04 POC Glucose 155 H 173 H TIERRA Screen POSITIVE A TIERRA Titer 1:40 H TIERRA Titer 2 1:40 H TIERRA Titer 3 TNP TIERRA Pattern SEE NOTE TIERRA Pattern 2 Nuclear, Homogeneous A TIERRA Pattern 3 TNP 03/03/21 16:22 POC Glucose 175 H TIERRA Screen TIERRA Titer TIERRA Titer 2 TIERRA Titer 3 TIERRA Pattern TIERRA Pattern 2 TIERRA Pattern 3 Procedures Date of Service Date of Service: 03/03/21 Assessment & Plan Assessment and plan (1) Acute kidney injury superimposed on chronic kidney disease: Status: Acute Assessment and Plan: 1. VANDANA: rapid loss of renal func over the past 3 months Scr 3.0 to now 9 without obvious explanation--most c/w prog CKD and now ESRD rapid loss of renal func over the past 9 months is very concerning Scr 1.4 ( 05/2020) Scr 3.0 ( 10/2020) Kidney Bx 10/2020: limited sample and signif glomsclerosis and no tissue for IF and EM not suggeestive of Im-Cx mediated GN;prior sero unrevealing; CT show mild hydro ? signif as was apparently present in 2016 as well but not evident on U/S 02/2021 Scr 9.0 REC: HD today and repeat kidney Bx ( give DDAVP prior to Bx to decr risk of bleeding); ask urol to see to make usre we are not missung something like retroperitoneal fibrosis; repeat UP/Cr ratio will arrange outpt HD spot ( [place] [facility]) Time Spent With Patient Time: Total time spent is greater than 50% in coordination of care (as documented) at patient's floor/unit and/or counseling patient: Progress Note: Quality Stroke Does the patient have a stroke diagnosis?: No
[2021-03-03 20:39] LABS: Glucose, Whole Blood 148 mg/dL (60-115)
[2021-03-03] MEDS: Mirtazapine 15 MG TABLET PO (20:48)
[2021-03-03] MEDS: traZODone HCL 100 MG TABLET PO (20:48)
[2021-03-03] MEDS: OLANZapine 10 MG TABLET PO (20:48)
[2021-03-03] MEDS: amLODIPine Besylate 10 MG TABLET PO (20:49)
[2021-03-04] VITALS (16 sets, daily range): BP systolic 133–178; BP diastolic 58–79; PULSE 63–92; RESP 18–19; TEMP 36–37.2; O2SAT 92–100; BMI 38.6
[2021-03-04 06:11] LABS: Hematocrit 22.8 % (37-47); Hemoglobin 7.4 g/dl (12.0-16.0); Mean Corpuscular HGB Conc 32.5 g/dl (31.0-35.0); Mean Corpuscular Hemoglobin 28.8 pg (27.0-33.0); Mean Corpuscular Volume 88.7 fL (80-98); Mean Platelet Volume 10.1 fL (9.4-12.3); Platelet Count 223 X10*3/uL (160-400); Red Blood Count 2.57 X10*6/uL (4.20-5.50); Red Cell Distribution Width 14.6 % (11.0-16.0); White Blood Count 9.6 X10*3/uL (4.8-10.8)
[2021-03-04 06:17] LABS: INTERNATIONAL NORM RATIO 0.9 (0.9-1.1); Prothrombin Time 10.4 SEC (9.9-13.0)
[2021-03-04 06:20] LABS: Partial Thromboplastin Time 32.9 SEC (24.1-38.0)
[2021-03-04 06:40] LABS: Anion Gap 13 (12-20); Blood Urea Nitrogen 47 mg/dL (9-16); Calcium 8.2 mg/dL (8.4-10.2); Carbon Dioxide 22 mmol/L (22-29); Chloride 105 mmol/L (96-108); Creatinine Clr Calc Pharmacy 7.9; Estimated Glomerular Filt Rate 5; Glucose Random 173 mg/dL (60-115); Potassium 4.3 mmol/L (3.3-5.1); Sodium 136 mmol/L (135-145)
[2021-03-04 07:27] LABS: Glucose, Whole Blood 163 mg/dL (60-115)
--- NOTE | 2021-03-04 09:09 | HO.PM.IMPN ---
Subjective Subjective Date of Service: 03/04/21 Interval History: pt interviewed in [place] tolerated HD yesterday denies N/V no chest pain no dyspnea Review of Systems Review of Systems: Yes all other systems are reviewed and are negative Physical Exam Vital Signs: Vital Signs: Last Vital Signs Temp 96.8 F 03/04/21 07:00 Pulse 69 03/04/21 07:00 Resp 19 03/04/21 07:00 BP 152/77 H 03/04/21 07:00 Pulse Ox 99 03/04/21 07:00 Body Mass Index 38.6 Gen: in no acute distress HEENT: sclera anicteric, moist mucus membranes Neck: supple, R subclavian Permacath Lungs: clear to auscultation bilaterally Heart: regular rate and rhythm, no murmurs Abd: soft, non-tender, non-distended Ext: no edema Skin: warm/well-perfused Neuro: alert and oriented x3, no focal findings Psych: appropriate affect Objective Data Active Medications Acetaminophen (Acetaminophen 325 Mg Tablet) 650 mg PO Q6H PRN PRN Reason: Pain, Mild (Pain Scale 1-3) Last Admin: 03/03/21 13:54 Dose: 650 mg Documented by: OTM Albuterol Sulfate (Albuterol Sulfate (0.083%) 2.5 Mg/3 Ml Vial.Neb) 2.5 mg INHALE TID PRN PRN Reason: Wheezing Amlodipine Besylate (Amlodipine Besylate 10 Mg Tablet) 10 mg PO BEDTIME [facility]; Protocol Last Admin: 03/03/21 20:49 Dose: 10 mg Documented by: CHADD Buprenorphine/Naloxone (Buprenorphine/Naloxone 8/2 Mg Film) 1 film SUBLINGUAL BID [facility] Last Admin: 03/03/21 20:49 Dose: 1 film Documented by: CHADD Clonidine HCl (Clonidine Hcl 0.1 Mg Tablet) 0.1 mg PO BID [facility]; Protocol Last Admin: 03/03/21 20:49 Dose: 0.1 mg Documented by: CHADD Dextrose (Dextrose 50 % 25 Gm/50 Ml Vial) 25 gm IVPUSH Q15M PRN; Protocol PRN Reason: per Hypoglycemia Standing Ord. Dextrose (Dextrose 50 % 25 Gm/50 Ml Vial) 25 gm IVPUSH Q15M PRN; Protocol PRN Reason: per Hypoglycemia Standing Ord. Diltiazem HCl (Diltiazem Hcl Cd 240 Mg Cap.Er.Deg) 240 mg PO DAILY [facility]; Protocol Last Admin: 03/03/21 07:53 Dose: 240 mg Documented by: TOM Docusate Sodium (Docusate Sodium 100 Mg Capsule) 100 mg PO DAILY PRN PRN Reason: Constipation Escitalopram Oxalate (Escitalopram Oxalate 5 Mg Tablet) 5 mg PO DAILY [facility] Last Admin: 03/03/21 07:52 Dose: 5 mg Documented by: TOM Glucose (Glucose Gel 15 Gm Gel..Gram.) 15 gm PO Q15M PRN; Protocol PRN Reason: per Hypoglycemia Standing Ord. Glucose (Glucose Gel 15 Gm Gel..Gram.) 15 gm PO Q15M PRN; Protocol PRN Reason: per Hypoglycemia Standing Ord. Heparin Sodium (Porcine) (Heparin Sodium,Porcine 5,000 Unit/Ml Vial) 5,000 unit SUBCUT Q12H [facility] Last Admin: 03/04/21 04:36 Dose: Not Given Documented by: CHADD Non-Admin Reason: procedure today Hydralazine HCl (Hydralazine Hcl 50 Mg Tablet) 50 mg PO TID [facility]; Protocol Last Admin: 03/03/21 20:49 Dose: 50 mg Documented by: CHADD Insulin Glargine (Insulin Glargine,Hum.Rec.Anlog 100 Unit/Ml 10 Ml Vial) 12 unit SUBCUT DAILY [facility] Last Admin: 03/03/21 08:07 Dose: 12 unit Documented by: TOM Insulin Human Lispro (Insulin Lispro 100 Unit/Ml 3 Ml Vial) 0.1 - 10 unit SUBCUT QIDACHS [facility]; Protocol Last Admin: 03/04/21 07:34 Dose: Not Given Documented by: NANI Non-Admin Reason: No Insulin Coverage Melatonin (Melatonin 3 Mg Tablet) 6 mg PO BEDTIME PRN PRN Reason: Insomnia Last Admin: 03/01/21 01:20 Dose: 6 mg Documented by: ALESHIA Mirtazapine (Mirtazapine 15 Mg Tablet) 15 mg PO BEDTIME [facility] Last Admin: 03/03/21 20:48 Dose: 15 mg Documented by: CHADD Multivitamins/Vitamin C (Multivitamin Tablet) 1 tab PO DAILY [facility] Last Admin: 03/03/21 07:53 Dose: 1 tab Documented by: TOM Nicotine (Nicotine 21 Mg Patch.Td24) 21 mg TRANSDERMA DAILY [facility] Last Admin: 03/03/21 07:52 Dose: 21 mg Documented by: TOM Olanzapine (Olanzapine 10 Mg Tablet) 10 mg PO BEDTIME [facility] Last Admin: 03/03/21 20:48 Dose: 10 mg Documented by: CHADD Ondansetron HCl (Ondansetron Hcl 4 Mg/2 Ml Vial) 4 mg IVPUSH Q8H PRN PRN Reason: Nausea and Vomiting Last Admin: 02/27/21 09:29 Dose: 4 mg Documented by: KISHOR Pharmacy Consult (Consult Rx Perform Med Rec) 1 each MISCELLANE ONCE PRN PRN Reason: Consult order Polyethylene Glycol (Polyethylene Glycol 3350 17 Gm Powd.Pack) 17 gm PO DAILY [facility] Last Admin: 03/03/21 07:52 Dose: 17 gm Documented by: TOM Tiotropium [place] (Tiotropium [place] 18 Mcg Cap.W.Dev) 1 puff INHALE DAILY [facility] Last Admin: 03/04/21 07:59 Dose: 1 puff Documented by: DRAKE Trazodone HCl (Trazodone Hcl 100 Mg Tablet) 100 - 200 mg PO BEDTIME [facility] Last Admin: 03/03/21 20:48 Dose: 100 mg Documented by: CHADD Labs CBC & Chem 7: 03/04/21 05:49 03/04/21 05:49 Labs: Laboratory Results - last 24 hr 03/03/21 03/03/21 03/04/21 16:22 20:35 05:49 MCV MCH MCHC RDW Plt Count MPV Absolute Nucleated RBC Nucleated RBC % (auto) PT 10.4 INR 0.9 APTT 32.9 Anion Gap Estim Creat Clear Calc Estimated GFR POC Glucose 175 H 148 H Random Glucose Calcium 03/04/21 03/04/21 03/04/21 05:49 05:49 07:00 MCV 88.7 MCH 28.8 MCHC 32.5 RDW 14.6 Plt Count 223 MPV 10.1 Absolute Nucleated RBC 0.000 Nucleated RBC % (auto) 0.0 PT INR APTT Anion Gap 13 Estim Creat Clear Calc 7.9 Estimated GFR 5 POC Glucose 163 H Random Glucose 173 H Calcium 8.2 L Assessment and Plan (1) Normocytic anemia: Status: Acute (2) Acute kidney injury superimposed on chronic kidney disease: Status: Acute (3) HTN (hypertension): Status: Acute Assessment and Plan: hospital d#8 65yo F with DM2, HTN presenting with abd pain and found to have VANDANA/CKD # VANDANA/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 prior renal biopsy at [facility] inconclusive due to limited sample, repeat renal biopsy will be done today. 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 no obstruction on renal US; per Urology no postrenal component # anemia of CKD - epo as per Nephrology - check iron studies, FOBT # chronic HFpEF - fluid overload due to VANDANA- got IV furosemide - recent TTE 11/08 showed LVEF 65-70%, no RWMA, abnormal diastolic function # HTN - continue amlodipine, clonidine, diltiazem, hydralazine # COPD - continue LAMA # DM2 - basal/bolus insulin # constipation - resolved # tobacco abuse - NRT # opioid use disorder - continue Suboxone # mood disorder - continue trazodone, mirtapazine, olanazpine # morbid obesity - t/c outpt bariatrics ref # VTE ppx - UFH # dispo - PT consult - d/c after induction HD and outpt HD spot secured Quality Stroke Does the patient have a stroke diagnosis?: No VTE Prior VTE?: No VTE Risk Level:: Medical - moderate - high VTE Device Contraindication: Treatment Not Indicated VTE Drug Contraindication: N/A - Med Ordered
[2021-03-04 09:28] LABS: Iron 75 mcg/dL (30-160); Percent Iron Saturation 30 % (15-50); Total Iron Binding Capacity 250 mcg/dL (228-428); Unsaturated Iron Binding 175 ug/dL
[2021-03-04] MEDS: hydrALAZINE HCl 50 MG TABLET PO ×3 (09:32→19:43)
[2021-03-04] MEDS: cloNIDine HCL 0.1 MG TABLET PO ×2 (09:32→19:42)
[2021-03-04] MEDS: dilTIAZem HCL CD 240 MG CAP.ER.DEG PO (09:33)
[2021-03-04 09:48] LABS: Ferritin 131 ng/mL (10-250)
[2021-03-04 10:22] LABS: Glucose, Whole Blood 142 mg/dL (60-115)
[2021-03-04] MEDS: Desmopressin Acetate 20 MCG in 0.9 % Sodium Chloride 50 ML 100 MCG IV (10:26)
--- NOTE | 2021-03-04 12:36 | PC.NURSE ---
This RN was notified by Shayna Trejo RN that a new order for one bag of RBC's was put in by hospitalist right as aircraft worker was picking patient up on floor for preop prep. Blood not ready to be picked up during time in preop. Verified via [facility] Text with ordering physician, Dr. Mesa, that patient can wait for blood transfusion until after procedure and back up on the floor. Shayna PICKENS as well as Christoph Pond RN from radiology aware.
[2021-03-04] MEDS: Nicotine 21 MG PATCH.TD24 TRANSDERMA (12:51)
[2021-03-04] MEDS: Insulin Glargine,Hum.rec.anlog 100 UNIT/ML 10 ML VIAL 12 UNIT SUBCUT (12:52)
[2021-03-04] MEDS: polyethylene glycoL 3350 17 GM POWD.PACK PO (12:52)
[2021-03-04] MEDS: Buprenorphine/Naloxone 8/2 mg FILM 1 FILM SUBLINGUAL ×2 (12:52→19:42)
[2021-03-04] MEDS: Escitalopram Oxalate 5 MG TABLET PO (12:52)
[2021-03-04] MEDS: Multivitamin TABLET 1 TAB PO (12:52)
--- NOTE | 2021-03-04 12:55 | PM.PNNEP ---
Subjective Subjective Date of Service: 03/04/21 Principal diagnosis: renal failure Interval history: Seen and examined, events noted Physical Exam Vital Signs: Vital Signs: Last Vital Signs Temp 97.2 F 03/04/21 12:05 Pulse 80 03/04/21 12:05 Resp 18 03/04/21 12:05 BP 164/69 H 03/04/21 12:05 Pulse Ox 97 03/04/21 12:05 Body Mass Index 38.6 Const: General: no acute distress HENMT: Mouth: moist mucous membranes Eyes: EOM: EOMs intact bilaterally Neck: Neck: Yes supple Resp: Auscultation: diminished lung sounds Cardio: Jugular venous distension: no JVD Rate: regular rate Heart sounds: no rubs GI: Palpation (GI): Soft to palpation Neuro: General: moves all extremities Extrem: General: Yes edema Objective Data Labs CBC & Chem 7: 03/04/21 05:49 03/04/21 05:49 Labs: Laboratory Results - last 24 hr 03/03/21 03/03/21 03/04/21 16:22 20:35 05:49 WBC RBC Hgb Hct MCV MCH MCHC RDW Plt Count MPV Absolute Nucleated RBC Nucleated RBC % (auto) PT 10.4 INR 0.9 APTT 32.9 Sodium Potassium Chloride Carbon Dioxide Anion Gap BUN Creatinine Estim Creat Clear Calc Estimated GFR POC Glucose 175 H 148 H Random Glucose Calcium Iron TIBC % Saturation Unsat Iron Binding Ferritin Blood Type Antibody Screen Crossmatch 03/04/21 03/04/21 03/04/21 05:49 05:49 07:00 WBC 9.6 RBC 2.57 L Hgb 7.4 L D Hct 22.8 L D MCV 88.7 MCH 28.8 MCHC 32.5 RDW 14.6 Plt Count 223 MPV 10.1 Absolute Nucleated RBC 0.000 Nucleated RBC % (auto) 0.0 PT INR APTT Sodium 136 Potassium 4.3 Chloride 105 Carbon Dioxide 22 Anion Gap 13 BUN 47 H Creatinine 7.45 H* Estim Creat Clear Calc 7.9 Estimated GFR 5 POC Glucose 163 H Random Glucose 173 H Calcium 8.2 L Iron 75 TIBC 250 % Saturation 30 Unsat Iron Binding 175 Ferritin 131 Blood Type Antibody Screen Crossmatch 03/04/21 03/04/21 09:38 10:17 WBC RBC Hgb Hct MCV MCH MCHC RDW Plt Count MPV Absolute Nucleated RBC Nucleated RBC % (auto) PT INR APTT Sodium Potassium Chloride Carbon Dioxide Anion Gap BUN Creatinine Estim Creat Clear Calc Estimated GFR POC Glucose 142 H Random Glucose Calcium Iron TIBC % Saturation Unsat Iron Binding Ferritin Blood Type O Positive Antibody Screen NEGATIVE Crossmatch See Detail Procedures Date of Service Date of Service: 03/04/21 Assessment & Plan Assessment and plan (1) Acute kidney injury superimposed on chronic kidney disease: Start date: 03/04/21 Start time: 12:57 Status: Acute Assessment and Plan: 1. VANDANA: rapid loss of renal func over the past 3 months Scr 3.0 to now 9 without obvious explanation--most c/w prog CKD and now ESRD rapid loss of renal func over the past 9 months is very concerning Scr 1.4 ( 05/2020) Scr 3.0 ( 10/2020) Kidney Bx 10/2020: limited sample and signif glomsclerosis and no tissue for IF and EM not suggeestive of Im-Cx mediated GN;prior sero unrevealing; CT show mild hydro ? signif as was apparently present in 2016 as well but not evident on U/S 02/2021 Scr 9.0 First HD Tx 03/03 REC: HD again tomorrow; repeat kidney Bx ( give DDAVP prior to Bx to decr risk of bleeding); ask urol to see to make usre we are not missung something like retroperitoneal fibrosis; repeat UP/Cr ratio will arrange outpt HD spot ( [facility]) Time Spent With Patient Time: Total time spent is greater than 50% in coordination of care (as documented) at patient's floor/unit and/or counseling patient: Progress Note: Quality Stroke Does the patient have a stroke diagnosis?: No
[2021-03-04] MEDS: Insulin Lispro 100 UNIT/ML 3 ML VIAL SUBCUT ×3 (12:58→20:12)
[2021-03-04 12:59] LABS: Glucose, Whole Blood 211 mg/dL (60-115)
[2021-03-04] MEDS: Lidocaine HCl 1 % MPF 5 ML VIAL 10 ML SUBCUT (13:14)
[2021-03-04] MEDS: Acetaminophen 325 MG TABLET 650 MG PO (15:45)
[2021-03-04] MEDS: Heparin Sodium,Porcine 5,000 UNIT/ML VIAL 5000 UNIT SUBCUT (15:46)
[2021-03-04 16:02] LABS: Glucose, Whole Blood 194 mg/dL (60-115)
[2021-03-04] MEDS: Mirtazapine 15 MG TABLET PO (19:42)
[2021-03-04] MEDS: OLANZapine 10 MG TABLET PO (19:42)
[2021-03-04] MEDS: traZODone HCL 100 MG TABLET PO (19:42)
[2021-03-04] MEDS: amLODIPine Besylate 10 MG TABLET PO (19:43)
[2021-03-04 20:03] LABS: Glucose, Whole Blood 166 mg/dL (60-115)
[2021-03-04] MEDS: traMADoL HCL 50 MG TABLET 25 MG PO (20:50)
[2021-03-04 21:37] LABS: Kappa Light Chain, Free Serum 153.3 mg/L (3.3-19.4); Kappa/Lambda Lt Ch Free Ratio 2.73 (0.26-1.65); Lambda Light Chain, Free Serum 56.1 mg/L (5.7-26.3)
[2021-03-05] VITALS (14 sets, daily range): BP systolic 122–176; BP diastolic 65–97; PULSE 69–89; RESP 16–20; TEMP 35.7–37.6; O2SAT 94–100; BMI 41.0
--- NOTE | 2021-03-05 | ECG_ITS ---
Test Reason : CHEST PAIN Blood Pressure : / mmHG Vent. Rate : 069 BPM Atrial Rate : 069 BPM P-R Int : 150 ms QRS Dur : 090 ms QT Int : 424 ms P-R-T Axes : 000 001 020 degrees QTc Int : 454 ms Normal sinus rhythm Possible Left atrial enlargement Minimal voltage criteria for LVH, may be normal variant Nonspecific T wave abnormality Abnormal ECG No significant changes seen Referred By: Florence Mesa Electronically Signed By:CHRISTY AN MD
[2021-03-05] MEDS: Heparin Sodium,Porcine 5,000 UNIT/ML VIAL 5000 UNIT SUBCUT ×2 (04:18→16:18)
[2021-03-05 05:49] LABS: Hematocrit 23.7 % (37-47); Hemoglobin 7.8 g/dl (12.0-16.0); Mean Corpuscular HGB Conc 32.9 g/dl (31.0-35.0); Mean Corpuscular Hemoglobin 29.2 pg (27.0-33.0); Mean Corpuscular Volume 88.8 fL (80-98); Mean Platelet Volume 9.9 fL (9.4-12.3); Platelet Count 181 X10*3/uL (160-400); Red Blood Count 2.67 X10*6/uL (4.20-5.50); Red Cell Distribution Width 14.5 % (11.0-16.0); White Blood Count 9.1 X10*3/uL (4.8-10.8)
[2021-03-05 06:25] LABS: Anion Gap 14 (12-20); Blood Urea Nitrogen 59 mg/dL (9-16); Calcium 8.1 mg/dL (8.4-10.2); Carbon Dioxide 20 mmol/L (22-29); Chloride 103 mmol/L (96-108); Creatinine Clr Calc Pharmacy 7.5; Estimated Glomerular Filt Rate 5; Glucose Random 205 mg/dL (60-115); Potassium 4.4 mmol/L (3.3-5.1); Sodium 133 mmol/L (135-145)
[2021-03-05 08:17] LABS: Glucose, Whole Blood 183 mg/dL (60-115)
[2021-03-05] MEDS: cloNIDine HCL 0.1 MG TABLET PO ×2 (08:40→20:29)
[2021-03-05] MEDS: dilTIAZem HCL CD 240 MG CAP.ER.DEG PO (08:40)
[2021-03-05] MEDS: hydrALAZINE HCl 50 MG TABLET PO ×3 (08:40→20:28)
[2021-03-05] MEDS: polyethylene glycoL 3350 17 GM POWD.PACK PO (08:41)
[2021-03-05] MEDS: Buprenorphine/Naloxone 8/2 mg FILM 1 FILM SUBLINGUAL ×2 (08:41→20:25)
[2021-03-05] MEDS: Nicotine 21 MG PATCH.TD24 TRANSDERMA (08:41)
[2021-03-05] MEDS: Escitalopram Oxalate 5 MG TABLET PO (08:41)
[2021-03-05] MEDS: Insulin Glargine,Hum.rec.anlog 100 UNIT/ML 10 ML VIAL 12 UNIT SUBCUT (08:42)
[2021-03-05] MEDS: Insulin Lispro 100 UNIT/ML 3 ML VIAL SUBCUT ×3 (08:42→20:24)
--- NOTE | 2021-03-05 11:31 | P.PNNP_ITS ---
Subjective Subjective Date of Service: 03/05/21 Principal diagnosis: renal failure Interval history: Seen and examined, events noted no complaints Physical Exam Vital Signs: Vital Signs: Last Vital Signs Temp 99.7 F 03/05/21 07:09 Pulse 74 03/05/21 08:40 Resp 18 03/05/21 07:09 BP 176/77 H 03/05/21 08:40 Pulse Ox 100 03/05/21 07:09 Body Mass Index 41.0 Const: General: no acute distress HENMT: Mouth: moist mucous membranes Eyes: EOM: EOMs intact bilaterally Neck: Neck: Yes supple Resp: Auscultation: diminished lung sounds Cardio: Jugular venous distension: no JVD Rate: regular rate Heart sounds: no rubs GI: Palpation (GI): Soft to palpation Neuro: General: moves all extremities Extrem: General: Yes edema Objective Data Labs CBC & Chem 7: 03/05/21 05:40 03/05/21 05:40 Labs: Laboratory Results - last 24 hr 03/01/21 03/04/21 03/04/21 15:47 09:38 12:51 WBC RBC Hgb Hct MCV MCH MCHC RDW Plt Count MPV Absolute Nucleated RBC Nucleated RBC % (auto) Sodium Potassium Chloride Carbon Dioxide Anion Gap BUN Creatinine Estim Creat Clear Calc Estimated GFR POC Glucose 211 H Random Glucose Calcium Free [place] LC, Quant 153.3 H Free Lambda LC, Quant 56.1 H Free [place]/Lambda Ratio 2.73 H Blood Type O Positive Antibody Screen NEGATIVE Crossmatch See Detail 03/04/21 03/04/21 03/05/21 15:58 20:00 05:40 WBC 9.1 RBC 2.67 L Hgb 7.8 L Hct 23.7 L MCV 88.8 MCH 29.2 MCHC 32.9 RDW 14.5 Plt Count 181 MPV 9.9 Absolute Nucleated RBC 0.000 Nucleated RBC % (auto) 0.0 Sodium Potassium Chloride Carbon Dioxide Anion Gap BUN Creatinine Estim Creat Clear Calc Estimated GFR POC Glucose 194 H 166 H Random Glucose Calcium Free [place] LC, Quant Free Lambda LC, Quant Free [place]/Lambda Ratio Blood Type Antibody Screen Crossmatch 03/05/21 03/05/21 05:40 08:02 WBC RBC Hgb Hct MCV MCH MCHC RDW Plt Count MPV Absolute Nucleated RBC Nucleated RBC % (auto) Sodium 133 L Potassium 4.4 Chloride 103 Carbon Dioxide 20 L Anion Gap 14 BUN 59 H Creatinine 8.11 H* Estim Creat Clear Calc 7.5 Estimated GFR 5 POC Glucose 183 H Random Glucose 205 H Calcium 8.1 L Free [place] LC, Quant Free Lambda LC, Quant Free [place]/Lambda Ratio Blood Type Antibody Screen Crossmatch Procedures Date of Service Date of Service: 03/05/21 Assessment & Plan Assessment and plan (1) VANDANA (acute kidney injury): Status: Acute (2) Hyponatremia: Status: Acute (3) Anemia: Status: Acute Assessment and Plan: VANDANA versus progression of CKD started on HD 03/03 underlying nephrotic range proteinuria usually signals risk for abrupt kidey function deterioration no obstruction history of DM and HTN prior kidney biopsy showed glomerular sclerosis, no immune complex disease (but no IF or EM) but degree of tubulo interstitial scarring would be more informative also REC HD today otpimize volume status kidney biopsy restrict free water intake CRUZITO phosphate binders will arrange for outpatient HD at [place] unit Time Spent With Patient Time: Total time spent is greater than 50% in coordination of care (as documented) at patient's floor/unit and/or counseling patient: Progress Note: Quality Stroke Does the patient have a stroke diagnosis?: No
[2021-03-05 11:42] LABS: Glucose, Whole Blood 192 mg/dL (60-115)
--- NOTE | 2021-03-05 12:28 | MHC.CM.PN ---
Per MD, dc is expected to be on 03/06/21.
[2021-03-05] MEDS: Acetaminophen 325 MG TABLET 650 MG PO ×2 (12:41→20:25)
--- NOTE | 2021-03-05 13:49 | MHC.CM.PN ---
CM met with Patient in HD to discuss dc planning. 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 CM will follow.Per MD, anticipate dc to home on 03/06/21.
--- NOTE | 2021-03-05 14:17 | PC.NURSE ---
During dialysis prior to blood infusing pt had moderate right lateral chest pain around 5-6th intercostal space mid axillary region, worse with palpation, tylenol was given with some effect, EKG showed NSR with nonspecfic Twave changes, no ST elevation and R wave progression noted through v1-v6, md aware. trops being drawn.
--- NOTE | 2021-03-05 15:24 | HO.PM.IMPN ---
Subjective Subjective Date of Service: 03/05/21 Interval History: No pain after biopsy yesterday HD today Refuses STR This afternoon developed moderate R-sided chest pain, improved now. No EKG changes. Tn-I x2 pending Review of Systems Review of Systems: Yes all other systems are reviewed and are negative Physical Exam Vital Signs: Vital Signs: Last Vital Signs Temp 98.1 F 03/05/21 13:30 Pulse 71 03/05/21 13:30 Resp 16 03/05/21 13:30 BP 122/79 03/05/21 13:30 Pulse Ox 100 03/05/21 07:09 Body Mass Index 41.0 Gen: in no acute distress HEENT: sclera anicteric, moist mucus membranes Neck: supple, R subclavian Permacath Lungs: clear to auscultation bilaterally Heart: regular rate and rhythm, no murmurs Abd: soft, non-tender, non-distended Ext: no edema Skin: warm/well-perfused Neuro: alert and oriented x3, no focal findings Psych: appropriate affect Objective Data Active Medications Acetaminophen (Acetaminophen 325 Mg Tablet) 650 mg PO Q6H PRN PRN Reason: Pain, Mild (Pain Scale 1-3) Last Admin: 03/05/21 12:41 Dose: 650 mg Documented by: GARRY Amlodipine Besylate (Amlodipine Besylate 10 Mg Tablet) 10 mg PO BEDTIME [facility]; Protocol Last Admin: 03/04/21 19:43 Dose: 10 mg Documented by: CHADD Buprenorphine/Naloxone (Buprenorphine/Naloxone 8/2 Mg Film) 1 film SUBLINGUAL BID [facility] Last Admin: 03/05/21 08:41 Dose: 1 film Documented by: GARRY Clonidine HCl (Clonidine Hcl 0.1 Mg Tablet) 0.1 mg PO BID [facility]; Protocol Last Admin: 03/05/21 08:40 Dose: 0.1 mg Documented by: GARRY Dextrose (Dextrose 50 % 25 Gm/50 Ml Vial) 25 gm IVPUSH Q15M PRN; Protocol PRN Reason: per Hypoglycemia Standing Ord. Dextrose (Dextrose 50 % 25 Gm/50 Ml Vial) 25 gm IVPUSH Q15M PRN; Protocol PRN Reason: per Hypoglycemia Standing Ord. Diltiazem HCl (Diltiazem Hcl Cd 240 Mg Cap.Er.Deg) 240 mg PO DAILY [facility]; Protocol Last Admin: 03/05/21 08:40 Dose: 240 mg Documented by: GARRY Docusate Sodium (Docusate Sodium 100 Mg Capsule) 100 mg PO DAILY PRN PRN Reason: Constipation Escitalopram Oxalate (Escitalopram Oxalate 5 Mg Tablet) 5 mg PO DAILY [facility] Last Admin: 03/05/21 08:41 Dose: 5 mg Documented by: GARRY Glucose (Glucose Gel 15 Gm Gel..Gram.) 15 gm PO Q15M PRN; Protocol PRN Reason: per Hypoglycemia Standing Ord. Glucose (Glucose Gel 15 Gm Gel..Gram.) 15 gm PO Q15M PRN; Protocol PRN Reason: per Hypoglycemia Standing Ord. Heparin Sodium (Porcine) (Heparin Sodium,Porcine 5,000 Unit/Ml Vial) 5,000 unit SUBCUT Q12H [facility] Last Admin: 03/05/21 04:18 Dose: 5,000 unit Documented by: KARTHIK Hydralazine HCl (Hydralazine Hcl 50 Mg Tablet) 50 mg PO TID [facility]; Protocol Last Admin: 03/05/21 08:40 Dose: 50 mg Documented by: GARRY Insulin Glargine (Insulin Glargine,Hum.Rec.Anlog 100 Unit/Ml 10 Ml Vial) 12 unit SUBCUT DAILY [facility] Last Admin: 03/05/21 08:42 Dose: 12 unit Documented by: GARRY Insulin Human Lispro (Insulin Lispro 100 Unit/Ml 3 Ml Vial) 0.1 - 10 unit SUBCUT QIDACHS [facility]; Protocol Last Admin: 03/05/21 12:14 Dose: Not Given Documented by: GARRY Non-Admin Reason: Off unit: Dialysis Melatonin (Melatonin 3 Mg Tablet) 6 mg PO BEDTIME PRN PRN Reason: Insomnia Last Admin: 03/01/21 01:20 Dose: 6 mg Documented by: ANDERICK Mirtazapine (Mirtazapine 15 Mg Tablet) 15 mg PO BEDTIME [facility] Last Admin: 03/04/21 19:42 Dose: 15 mg Documented by: DESROLaron Multivitamins/Vitamin C (Multivitamin Tablet) 1 tab PO DAILY [facility] Last Admin: 03/04/21 12:52 Dose: 1 tab Documented by: NANI Nicotine (Nicotine 21 Mg Patch.Td24) 21 mg TRANSDERMA DAILY [facility] Last Admin: 03/05/21 08:41 Dose: 21 mg Documented by: GARRY Olanzapine (Olanzapine 10 Mg Tablet) 10 mg PO BEDTIME [facility] Last Admin: 03/04/21 19:42 Dose: 10 mg Documented by: CHADD Ondansetron HCl (Ondansetron Hcl 4 Mg/2 Ml Vial) 4 mg IVPUSH Q8H PRN PRN Reason: Nausea and Vomiting Last Admin: 02/27/21 09:29 Dose: 4 mg Documented by: KISHOR Pharmacy Consult (Consult Rx Perform Med Rec) 1 each MISCELLANE ONCE PRN PRN Reason: Consult order Polyethylene Glycol (Polyethylene Glycol 3350 17 Gm Powd.Pack) 17 gm PO DAILY [facility] Last Admin: 03/05/21 08:41 Dose: 17 gm Documented by: GARRY Tiotropium [place] (Tiotropium [place] 18 Mcg Cap.W.Dev) 1 puff INHALE DAILY [facility] Last Admin: 03/05/21 08:06 Dose: 1 puff Documented by: ZORAIDA Trazodone HCl (Trazodone Hcl 100 Mg Tablet) 100 - 200 mg PO BEDTIME [facility] Last Admin: 03/04/21 19:42 Dose: 100 mg Documented by: CHADD Labs CBC & Chem 7: 03/05/21 05:40 03/05/21 05:40 Labs: Laboratory Results - last 24 hr 03/01/21 03/04/21 03/04/21 15:47 09:38 15:58 MCV MCH MCHC RDW Plt Count MPV Absolute Nucleated RBC Nucleated RBC % (auto) Anion Gap Estim Creat Clear Calc Estimated GFR POC Glucose 194 H Random Glucose Calcium Free [place] LC, Quant 153.3 H Free Lambda LC, Quant 56.1 H Free [place]/Lambda Ratio 2.73 H Blood Type O Positive Antibody Screen NEGATIVE Crossmatch See Detail 03/04/21 03/05/21 03/05/21 20:00 05:40 05:40 MCV 88.8 MCH 29.2 MCHC 32.9 RDW 14.5 Plt Count 181 MPV 9.9 Absolute Nucleated RBC 0.000 Nucleated RBC % (auto) 0.0 Anion Gap 14 Estim Creat Clear Calc 7.5 Estimated GFR 5 POC Glucose 166 H Random Glucose 205 H Calcium 8.1 L Free [place] LC, Quant Free [place]ambda LC, Quant Free [place]/Lambda Ratio Blood Type Antibody Screen Crossmatch 03/05/21 03/05/21 08:02 11:19 MCV MCH MCHC RDW Plt Count MPV Absolute Nucleated RBC Nucleated RBC % (auto) Anion Gap Estim Creat Clear Calc Estimated GFR POC Glucose 183 H 192 H Random Glucose Calcium Free [place] LC, Quant Free [place]ambda LC, Quant Free [place]/Lambda Ratio Blood Type Antibody Screen Crossmatch Assessment and Plan (1) Normocytic anemia: Status: Acute (2) Acute kidney injury superimposed on chronic kidney disease: Status: Acute (3) HTN (hypertension): Status: Acute Assessment and Plan: hospital d#9 65yo F with DM2, HTN presenting with abd pain and found to have VANDANA/CKD # VANDANA/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 prior renal biopsy at [facility] inconclusive due to limited sample, repeat renal biopsy done 03/04/21. 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 no obstruction on renal US; per Urology no postrenal component # anemia of CKD - weekly epo as per Nephrology - transfused 1u pRBCs yesterday, will give another 1u today # chronic HFpEF - fluid overload due to VANDANA- got IV furosemide - recent TTE 11/08 showed LVEF 65-70%, no RWMA, abnormal diastolic function # atypical chest pain - Tn-I q3h x2 # HTN - continue amlodipine, clonidine, diltiazem, hydralazine # COPD - continue LAMA # DM2 - basal/bolus insulin # constipation - resolved # tobacco abuse - NRT # opioid use disorder - continue Suboxone # mood disorder - continue trazodone, mirtapazine, olanazpine # morbid obesity - t/c outpt bariatrics ref # VTE ppx - UFH # dispo - anticipate home with VNA once outpt HD secured Quality Stroke Does the patient have a stroke diagnosis?: No VTE Prior VTE?: No VTE Risk Level:: Medical - moderate - high VTE Device Contraindication: Treatment Not Indicated VTE Drug Contraindication: N/A - Med Ordered
[2021-03-05 16:16] LABS: Glucose, Whole Blood 175 mg/dL (60-115)
[2021-03-05 17:30] LABS: Troponin-I High Sensitivity 53.7 ng/L (<3.5-17.0)
[2021-03-05 19:36] LABS: Glucose, Whole Blood 244 mg/dL (60-115)
[2021-03-05] MEDS: Mirtazapine 15 MG TABLET PO (20:27)
[2021-03-05] MEDS: traZODone HCL 100 MG TABLET PO (20:29)
[2021-03-05] MEDS: amLODIPine Besylate 10 MG TABLET PO (20:29)
[2021-03-05] MEDS: OLANZapine 10 MG TABLET PO (20:29)
--- NOTE | 2021-03-05 22:41 | PC.NURSE ---
P patient c/o bilateral hands pain I-assessed,equal strong grasp,Dr. Lowery notified E warm pack applied with some effect
[2021-03-06] VITALS (10 sets, daily range): BP systolic 131–185; BP diastolic 65–90; PULSE 69–88; RESP 18–20; TEMP 35.5–37.2; O2SAT 93–100; BMI 39.2
[2021-03-06 00:54] LABS: Troponin-I High Sensitivity 51.1 ng/L (<3.5-17.0)
[2021-03-06] MEDS: Heparin Sodium,Porcine 5,000 UNIT/ML VIAL 5000 UNIT SUBCUT (02:23)
[2021-03-06 02:49] LABS: Glucose, Whole Blood 182 mg/dL (60-115)
[2021-03-06] MEDS: Acetaminophen 325 MG TABLET 650 MG PO ×2 (02:59→20:00)
[2021-03-06] MEDS: Melatonin 3 MG TABLET 6 MG PO (03:04)
[2021-03-06 07:07] LABS: Glucose, Whole Blood 150 mg/dL (60-115)
[2021-03-06 07:23] LABS: Hematocrit 28.2 % (37-47); Hemoglobin 9.3 g/dl (12.0-16.0); Mean Corpuscular Hemoglobin 28.7 pg (27.0-33.0); Mean Platelet Volume 10.5 fL (9.4-12.3); NRBC Pct Auto 0.7 /100WBC (0.0-0.2); Platelet Count 195 X10*3/uL (160-400); Red Blood Count 3.24 X10*6/uL (4.20-5.50); Red Cell Distribution Width 15.2 % (11.0-16.0); White Blood Count 11.7 X10*3/uL (4.8-10.8)
[2021-03-06 07:51] LABS: Anion Gap 16 (12-20); Blood Urea Nitrogen 39 mg/dL (9-16); Calcium 8.6 mg/dL (8.4-10.2); Carbon Dioxide 21 mmol/L (22-29); Chloride 99 mmol/L (96-108); Creatinine Clr Calc Pharmacy 9.9; Estimated Glomerular Filt Rate 7; Glucose Random 159 mg/dL (60-115); Potassium 4.4 mmol/L (3.3-5.1); Sodium 132 mmol/L (135-145)
--- NOTE | 2021-03-06 08:12 | P.PNNP_ITS ---
Subjective Subjective Date of Service: 03/06/21 Principal diagnosis: renal failure Interval history: seen and examined had HD yesterday complains of nausea this morning denies cp, sob Physical Exam Vital Signs: Vital Signs: Last Vital Signs Temp 98.9 F 03/06/21 07:30 Pulse 82 03/06/21 07:30 Resp 18 03/06/21 07:30 BP 185/66 H 03/06/21 07:30 Pulse Ox 98 03/06/21 07:30 Body Mass Index 39.2 Const: General: no acute distress HENMT: Mouth: moist mucous membranes Eyes: EOM: EOMs intact bilaterally Neck: Neck: Yes supple Resp: Auscultation: diminished lung sounds Cardio: Jugular venous distension: no JVD Rate: regular rate Heart sounds: no rubs GI: Palpation (GI): Soft to palpation Neuro: General: moves all extremities Extrem: General: Yes edema Objective Data Labs CBC & Chem 7: 03/06/21 06:24 03/06/21 06:24 Labs: Laboratory Results - last 24 hr 03/04/21 03/05/21 03/05/21 09:38 08:02 11:19 WBC RBC Hgb Hct MCV MCH MCHC RDW Plt Count MPV Absolute Nucleated RBC Nucleated RBC % (auto) Sodium Potassium Chloride Carbon Dioxide Anion Gap BUN Creatinine Estim Creat Clear Calc Estimated GFR POC Glucose 183 H 192 H Random Glucose Calcium Troponin I High Sens Blood Type O Positive Antibody Screen NEGATIVE Crossmatch See Detail 03/05/21 03/05/21 03/05/21 16:05 16:46 19:31 WBC RBC Hgb Hct MCV MCH MCHC RDW Plt Count MPV Absolute Nucleated RBC Nucleated RBC % (auto) Sodium Potassium Chloride Carbon Dioxide Anion Gap BUN Creatinine Estim Creat Clear Calc Estimated GFR POC Glucose 175 H 244 H Random Glucose Calcium Troponin I High Sens 53.7 H* Blood Type Antibody Screen Crossmatch 03/06/21 03/06/21 03/06/21 00:17 02:44 06:24 WBC 11.7 H RBC 3.24 L D Hgb 9.3 L Hct 28.2 L MCV 87.0 MCH 28.7 MCHC 33.0 RDW 15.2 Plt Count 195 MPV 10.5 Absolute Nucleated RBC 0.080 H Nucleated RBC % (auto) 0.7 H Sodium Potassium Chloride Carbon Dioxide Anion Gap BUN Creatinine Estim Creat Clear Calc Estimated GFR POC Glucose 182 H Random Glucose Calcium Troponin I High Sens 51.1 H* Blood Type Antibody Screen Crossmatch 03/06/21 03/06/21 06:24 06:59 WBC RBC Hgb Hct MCV MCH MCHC RDW Plt Count MPV Absolute Nucleated RBC Nucleated RBC % (auto) Sodium 132 L Potassium 4.4 Chloride 99 Carbon Dioxide 21 L Anion Gap 16 BUN 39 H Creatinine 5.98 H* Estim Creat Clear Calc 9.9 Estimated GFR 7 POC Glucose 150 H Random Glucose 159 H Calcium 8.6 D Troponin I High Sens Blood Type Antibody Screen Crossmatch Procedures Date of Service Date of Service: 03/06/21 Assessment & Plan Assessment and plan (1) VANDANA (acute kidney injury): Status: Acute (2) Hyponatremia: Status: Acute (3) Anemia: Status: Acute Assessment and Plan: s/p HD and kidney biopsy VANDANA versus progression of CKD started on HD 03/03 underlying nephrotic range proteinuria usually signals risk for abrupt kidey function deterioration no obstruction history of DM and HTN prior kidney biopsy showed glomerular sclerosis, no immune complex disease (but no IF or EM) but degree of tubulo interstitial scarring would be more informative also known heart failure with preserved heart function, will optimize volume status with dialysis REC HD per schedule await kidney biopsy preliminary report restrict free water intake CRUZITO phosphate binders will arrange for outpatient HD at [place] unit Time Spent With Patient Time: Total time spent is greater than 50% in coordination of care (as documented) at patient's floor/unit and/or counseling patient: Progress Note: Quality Stroke Does the patient have a stroke diagnosis?: No
[2021-03-06] MEDS: ondansetron HCL 4 MG/2 ML VIAL IVPUSH (09:07)
[2021-03-06] MEDS: Nicotine 21 MG PATCH.TD24 TRANSDERMA (09:08)
[2021-03-06] MEDS: Buprenorphine/Naloxone 8/2 mg FILM 1 FILM SUBLINGUAL ×2 (09:09→19:58)
[2021-03-06] MEDS: polyethylene glycoL 3350 17 GM POWD.PACK PO (09:09)
[2021-03-06] MEDS: Multivitamin TABLET 1 TAB PO (09:10)
[2021-03-06] MEDS: cloNIDine HCL 0.1 MG TABLET PO ×2 (09:10→20:00)
[2021-03-06] MEDS: Insulin Glargine,Hum.rec.anlog 100 UNIT/ML 10 ML VIAL 12 UNIT SUBCUT (09:10)
[2021-03-06] MEDS: Docusate Sodium 100 MG CAPSULE PO (09:10)
[2021-03-06] MEDS: Sennosides/Docusate Sodium TABLET 2 TAB PO ×2 (09:18→19:59)
[2021-03-06] MEDS: Lactulose 20 GM/30 ML SOLUTION PO (09:19)
[2021-03-06] MEDS: Escitalopram Oxalate 5 MG TABLET PO (09:26)
--- NOTE | 2021-03-06 10:46 | HO.PM.IMPN ---
Subjective Subjective Date of Service: 03/06/21 Interval History: C/o nausea + constipation Awaiting HD placement Tolerated transfusion yesterday Review of Systems Review of Systems: Yes all other systems are reviewed and are negative Physical Exam Vital Signs: Vital Signs: Last Vital Signs Temp 98.9 F 03/06/21 07:30 Pulse 82 03/06/21 09:10 Resp 18 03/06/21 07:30 BP 182/66 H 03/06/21 09:10 Pulse Ox 98 03/06/21 07:30 Body Mass Index 39.2 Gen: in no acute distress HEENT: sclera anicteric, moist mucus membranes Neck: supple, R subclavian Permacath Lungs: clear to auscultation bilaterally Heart: regular rate and rhythm, no murmurs Abd: soft, non-tender, non-distended Ext: no edema Skin: warm/well-perfused Neuro: alert and oriented x3, no focal findings Psych: appropriate affect Objective Data Active Medications Acetaminophen (Acetaminophen 325 Mg Tablet) 650 mg PO Q6H PRN PRN Reason: Pain, Mild (Pain Scale 1-3) Last Admin: 03/06/21 02:59 Dose: 650 mg Documented by: KARTHIK Amlodipine Besylate (Amlodipine Besylate 10 Mg Tablet) 10 mg PO BEDTIME [facility]; Protocol Last Admin: 03/05/21 20:29 Dose: 10 mg Documented by: JAMIE Buprenorphine/Naloxone (Buprenorphine/Naloxone 8/2 Mg Film) 1 film SUBLINGUAL BID [facility] Last Admin: 03/06/21 09:09 Dose: 1 film Documented by: JESSICA Clonidine HCl (Clonidine Hcl 0.1 Mg Tablet) 0.1 mg PO BID [facility]; Protocol Last Admin: 03/06/21 09:10 Dose: 0.1 mg Documented by: JESSICA Dextrose (Dextrose 50 % 25 Gm/50 Ml Vial) 25 gm IVPUSH Q15M PRN; Protocol PRN Reason: per Hypoglycemia Standing Ord. Dextrose (Dextrose 50 % 25 Gm/50 Ml Vial) 25 gm IVPUSH Q15M PRN; Protocol PRN Reason: per Hypoglycemia Standing Ord. Diltiazem HCl (Diltiazem Hcl Cd 300 Mg Cap.Er.24h) 300 mg PO DAILY [facility]; Protocol Docusate Sodium (Docusate Sodium 100 Mg Capsule) 100 mg PO DAILY PRN PRN Reason: Constipation Last Admin: 03/06/21 09:10 Dose: 100 mg Documented by: JESSICA Escitalopram Oxalate (Escitalopram Oxalate 5 Mg Tablet) 5 mg PO DAILY [facility] Last Admin: 03/06/21 09:26 Dose: 5 mg Documented by: JESSICA Glucose (Glucose Gel 15 Gm Gel..Gram.) 15 gm PO Q15M PRN; Protocol PRN Reason: per Hypoglycemia Standing Ord. Glucose (Glucose Gel 15 Gm Gel..Gram.) 15 gm PO Q15M PRN; Protocol PRN Reason: per Hypoglycemia Standing Ord. Heparin Sodium (Porcine) (Heparin Sodium,Porcine 5,000 Unit/Ml Vial) 5,000 unit SUBCUT Q12H [facility] Last Admin: 03/06/21 02:23 Dose: 5,000 unit Documented by: KARTHIK Hydralazine HCl (Hydralazine Hcl 25 Mg Tablet) 75 mg PO TID [facility]; Protocol Insulin Glargine (Insulin Glargine,Hum.Rec.Anlog 100 Unit/Ml 10 Ml Vial) 12 unit SUBCUT DAILY [facility] Last Admin: 03/06/21 09:10 Dose: 12 unit Documented by: JESSICA Insulin Human Lispro (Insulin Lispro 100 Unit/Ml 3 Ml Vial) 0.1 - 10 unit SUBCUT QIDACHS [facility]; Protocol Last Admin: 03/06/21 07:08 Dose: Not Given Documented by: JESSICA Non-Admin Reason: No Insulin Coverage Lactulose (Lactulose 20 Gm/30 Ml Solution) 20 gm PO DAILY [facility] Last Admin: 03/06/21 09:19 Dose: 20 gm Documented by: JESSICA Melatonin (Melatonin 3 Mg Tablet) 6 mg PO BEDTIME PRN PRN Reason: Insomnia Last Admin: 03/06/21 03:04 Dose: 6 mg Documented by: KARTHIK Mirtazapine (Mirtazapine 15 Mg Tablet) 15 mg PO BEDTIME [facility] Last Admin: 03/05/21 20:27 Dose: 15 mg Documented by: JAMIE Multivitamins/Vitamin C (Multivitamin Tablet) 1 tab PO DAILY [facility] Last Admin: 03/06/21 09:10 Dose: 1 tab Documented by: JESSICA Nicotine (Nicotine 21 Mg Patch.Td24) 21 mg TRANSDERMA DAILY [facility] Last Admin: 03/06/21 09:08 Dose: 21 mg Documented by: JESSICA Olanzapine (Olanzapine 10 Mg Tablet) 10 mg PO BEDTIME [facility] Last Admin: 03/05/21 20:29 Dose: 10 mg Documented by: JAMIE Ondansetron HCl (Ondansetron Hcl 4 Mg/2 Ml Vial) 4 mg IVPUSH Q8H PRN PRN Reason: Nausea and Vomiting Last Admin: 03/06/21 09:07 Dose: 4 mg Documented by: JESSICA Pharmacy Consult (Consult Rx Perform Med Rec) 1 each MISCELLANE ONCE PRN PRN Reason: Consult order Polyethylene Glycol (Polyethylene Glycol 3350 17 Gm Powd.Pack) 17 gm PO DAILY [facility] Last Admin: 03/06/21 09:09 Dose: 17 gm Documented by: JESSICA Senna/Docusate Sodium (Sennosides/Docusate Sodium Tablet) 2 tab PO BID [facility] Last Admin: 03/06/21 09:18 Dose: 2 tab Documented by: JESSICA Tiotropium [place] (Tiotropium [place] 18 Mcg Cap.W.Dev) 1 puff INHALE DAILY [facility] Last Admin: 03/06/21 09:38 Dose: 1 puff Documented by: HARJINDER Trazodone HCl (Trazodone Hcl 100 Mg Tablet) 100 - 200 mg PO BEDTIME [facility] Last Admin: 03/05/21 20:29 Dose: 100 mg Documented by: JAMIE Labs CBC & Chem 7: 03/06/21 06:24 03/06/21 06:24 Labs: Laboratory Results - last 24 hr 03/04/21 03/05/21 03/05/21 09:38 11:19 16:05 MCV MCH MCHC RDW Plt Count MPV Absolute Nucleated RBC Nucleated RBC % (auto) Anion Gap Estim Creat Clear Calc Estimated GFR POC Glucose 192 H 175 H Random Glucose Calcium Troponin I High Sens Blood Type O Positive Antibody Screen NEGATIVE Crossmatch See Detail 03/05/21 03/05/21 03/06/21 16:46 19:31 00:17 MCV MCH MCHC RDW Plt Count MPV Absolute Nucleated RBC Nucleated RBC % (auto) Anion Gap Estim Creat Clear Calc Estimated GFR POC Glucose 244 H Random Glucose Calcium Troponin I High Sens 53.7 H* 51.1 H* Blood Type Antibody Screen Crossmatch 10/03/06/21 03/06/21 02:44 06:24 06:24 MCV 87.0 MCH 28.7 MCHC 33.0 RDW 15.2 Plt Count 195 MPV 10.5 Absolute Nucleated RBC 0.080 H Nucleated RBC % (auto) 0.7 H Anion Gap 16 Estim Creat Clear Calc 9.9 Estimated GFR 7 POC Glucose 182 H Random Glucose 159 H Calcium 8.6 D Troponin I High Sens Blood Type Antibody Screen Crossmatch 03/06/21 06:59 MCV MCH MCHC RDW Plt Count MPV Absolute Nucleated RBC Nucleated RBC % (auto) Anion Gap Estim Creat Clear Calc Estimated GFR POC Glucose 150 H Random Glucose Calcium Troponin I High Sens Blood Type Antibody Screen Crossmatch Assessment and Plan (1) Normocytic anemia: Status: Acute (2) Acute kidney injury superimposed on chronic kidney disease: Status: Acute (3) HTN (hypertension): Status: Acute Assessment and Plan: hospital d#10 65yo F with DM2, HTN presenting with abd pain and found to have VANDANA/CKD # VANDANA/CKD4 progressed to ESRD - Permacath placed 03/02, inducation HD 03/03-03/05. prior renal biopsy at [facility] inconclusive due to limited sample, repeat renal biopsy done 03/04/21 and pending. 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 no obstruction on renal US; per Urology no postrenal component # anemia of CKD - weekly epo as per Nephrology - transfused 1 unit 03/04 and 1 unit 03/05 # chronic HFpEF - fluid overload due to VANDANA- got IV furosemide then was dialyzed - recent TTE 11/08 showed LVEF 65-70%, no RWMA, abnormal diastolic function # atypical chest pain - resolved, Tn-I indeterminate/flat, no EKG changes of ischemia # HTN - continue amlodipine, clonidine, diltiazem, hydralazine- increase doses of the latter 2 given suboptimal control # COPD - continue LAMA, prn ALEYDA # DM2 - basal/bolus insulin # constipation - start senna/docusate + lactulose # tobacco abuse - NRT # opioid use disorder - continue Suboxone # mood disorder - continue trazodone, mirtapazine, olanazpine # morbid obesity - t/c outpt bariatrics referral # VTE ppx - UFH # dispo - anticipate home with VNA once outpt HD secured; refuses STR placement Quality Stroke Does the patient have a stroke diagnosis?: No VTE Prior VTE?: No VTE Risk Level:: Medical - moderate - high VTE Device Contraindication: Treatment Not Indicated VTE Drug Contraindication: N/A - Med Ordered
[2021-03-06 11:34] LABS: Glucose, Whole Blood 217 mg/dL (60-115)
[2021-03-06] MEDS: Insulin Lispro 100 UNIT/ML 3 ML VIAL SUBCUT ×3 (11:36→21:23)
[2021-03-06] MEDS: hydrALAZINE HCl 25 MG TABLET 75 MG PO ×2 (11:44→19:59)
[2021-03-06] MEDS: dilTIAZem HCL CD 300 MG CAP.ER.24H PO (11:46)
--- NOTE | 2021-03-06 12:41 | PC.NURSE ---
Dressing to right upper chest permacath saturated with blood and leaking onto imani. Dressing removed and new dressing placed. Approximately two hours later, second dressing saturated with blood leaking through and staining imani again. Pressure dressing applied and MD notified. Patient has no complaints at this time. VSS. SR on monitor, no ectopy.
[2021-03-06] MEDS: Desmopressin Acetate 20 MCG in 0.9 % Sodium Chloride 50 ML 100 MCG IV (14:01)
[2021-03-06 16:40] LABS: Glucose, Whole Blood 152 mg/dL (60-115)
[2021-03-06] MEDS: OLANZapine 10 MG TABLET PO (20:00)
[2021-03-06] MEDS: traZODone HCL 100 MG TABLET PO (20:00)
[2021-03-06] MEDS: Mirtazapine 15 MG TABLET PO (20:00)
[2021-03-06 21:14] LABS: Glucose, Whole Blood 172 mg/dL (60-115)
[2021-03-06] MEDS: amLODIPine Besylate 10 MG TABLET PO (21:23)
[2021-03-06 22:57] LABS: Hepatitis B Viral DNA Qn - cp <1.00 NOT DETECTED Log IU/mL (NOT DETECTED); Hepatitis B Viral DNA Qn-IU/mL <10 NOT DETECTED IU/mL (NOT DETECTED)
[2021-03-07] VITALS (10 sets, daily range): BP systolic 157–170; BP diastolic 35–89; PULSE 61–82; RESP 18–20; TEMP 36.6–37.1; O2SAT 94–100; BMI 38.3
[2021-03-07 07:26] LABS: Glucose, Whole Blood 219 mg/dL (60-115)
[2021-03-07] MEDS: Insulin Lispro 100 UNIT/ML 3 ML VIAL SUBCUT ×4 (07:53→21:02)
[2021-03-07] MEDS: Insulin Glargine,Hum.rec.anlog 100 UNIT/ML 10 ML VIAL 12 UNIT SUBCUT (07:53)
[2021-03-07] MEDS: Acetaminophen 325 MG TABLET 650 MG PO ×2 (07:53→16:54)
[2021-03-07] MEDS: Lactulose 20 GM/30 ML SOLUTION PO (07:53)
[2021-03-07] MEDS: Buprenorphine/Naloxone 8/2 mg FILM 1 FILM SUBLINGUAL ×2 (07:53→20:00)
[2021-03-07] MEDS: dilTIAZem HCL CD 300 MG CAP.ER.24H PO (07:54)
[2021-03-07] MEDS: Sennosides/Docusate Sodium TABLET 2 TAB PO ×2 (07:54→19:55)
[2021-03-07] MEDS: cloNIDine HCL 0.1 MG TABLET PO ×2 (07:54→21:02)
[2021-03-07] MEDS: Escitalopram Oxalate 5 MG TABLET PO (07:54)
[2021-03-07] MEDS: hydrALAZINE HCl 25 MG TABLET 75 MG PO (07:55)
[2021-03-07] MEDS: Multivitamin TABLET 1 TAB PO (07:55)
[2021-03-07] MEDS: Nicotine 21 MG PATCH.TD24 TRANSDERMA (07:55)
[2021-03-07] MEDS: polyethylene glycoL 3350 17 GM POWD.PACK PO (07:55)
--- NOTE | 2021-03-07 09:14 | MHC.CM.PN ---
with interpertor met with pt who gave this worker a phone number to who she is calling a nurse ,gwendolyn called [phone] she is pts superintendent meters pt does not have a vna ,,pt dcd home with resumption of superintendent meters servceis
--- NOTE | 2021-03-07 09:29 | P.PNNP_ITS ---
Subjective Subjective Date of Service: 03/08/21 Principal diagnosis: renal failure Interval history: C/o nausea + constipation Awaiting HD placement Tolerated transfusion yesterday Physical Exam Vital Signs: Vital Signs: Last Vital Signs Temp 98.3 F 03/07/21 07:30 Pulse 80 03/07/21 07:55 Resp 20 03/07/21 07:30 BP 162/63 H 03/07/21 07:55 Pulse Ox 100 03/07/21 07:30 Body Mass Index 38.3 Const: Orientation/consciousness: oriented to person Resp: Effort & Inspection: normal respiratory effort Auscultation: clear to auscultation bilaterally and no rhonchi Cardio: Jugular venous distension: no JVD Palpation: no palpable S3 Heart sounds: no rubs GI: Palpation (GI): Soft to palpation Auscultation: normal bowel sounds Skin: General skin exam: no jaundice Neuro: General: oriented to person Motor exam (neuro): no asterixis Objective Data Labs CBC & Chem 7: 03/06/21 06:24 03/06/21 06:24 Labs: Laboratory Results - last 24 hr 03/04/21 03/06/21 03/06/21 05:49 11:01 16:34 POC Glucose 217 H 152 H Hep B DNA copies/mL <1.00 NOT DETECTED Hep B DNA (IU/mL) <10 NOT DETECTED 03/06/21 03/07/21 19:54 07:07 POC Glucose 172 H 219 H Hep B DNA copies/mL Hep B DNA (IU/mL) Procedures Date of Service Date of Service: 03/07/21 Assessment & Plan Assessment and plan (1) VANDANA (acute kidney injury): Status: Acute Assessment and Plan: 1) Acute kidney injury superimposed on chronic kidney disease: ? VANDANA: rapid loss of renal func over the past 3 months Scr 3.0 to now 9 without obvious explanation--most c/w prog CKD and now ESRD Rapid loss of renal function over the past 9 months is very concerning Scr 1.4 ( 05/2020) Scr 3.0 ( 10/2020) Kidney Bx 10/2020: limited sample and significant glomerulosclerosis and no tissue for? IF and EM not suggestive of Im-Cx mediated GN;prior sero unrevealing;? CT show mild hydro ? signif as was apparently present in 2016 as well but not evident on U/S 02/2021 Scr 9.0 First HD Tx 03/03 REC: HD again tomorrow; repeat kidney Bx done on 03/04/21; will arrange outpt HD spot ( [facility]): Her insurance does not cover outpatient dialysis for VANDANA. They would only cover ESRD. She is NOT ESRD yet I will reach out to [facility] for the pathology report Time Spent With Patient Time: Total time spent is greater than 50% in coordination of care (as documented) at patient's floor/unit and/or counseling patient: Progress Note: Quality Stroke Does the patient have a stroke diagnosis?: No
--- NOTE | 2021-03-07 11:05 | W.MHC.F2F ---
Service Date Service Date: 03/07/21 Encounter Date of encounter: 03/07/21 Reasons for Services Signs and symptoms assessed: new HD start uncontrolled HTN med changes Reason for senior living: diabetic teaching, monitoring of unstable blood sugar, medication management, medication treatment and teach disease management Reason for physical therapy: home safety and mobility, therapeutic exercises, restore joint function, gait/transfer training, assess need for DME, ADL training and energy conservation Homebound: Leaving the home is medically contraindicated at this time without the asist of a device and/or another person due th the listed conditions above and below. Reason homebound: weakness related to hospital stay Certification: Based on the above findings, I certify that this patient is confined to the home and needs intermittent senior living care, physical therapy and/or speech therapy, or continues to need occupational therapy. The patient is under my care, and I have initiated the establishment of the plan of care. The patient will be followed by a physician who will periodically review the plan of care.
--- NOTE | 2021-03-07 11:09 | P.DS_ITS ---
DS: Providers Provider Date of admission: 02/25/21 23:33 Date of discharge: 03/07/21 Primary care physician: Unknown Physician Consults: 02/26/21 03:29 Consult to Nephrology Routine Consulting Provider: [facility] Reason for consultation: VANDANA on CKD, Cr 9 ( bl 3) Has provider been notified: No 02/26/21 09:09 Consult to General Surgery Routine Consulting Provider: [facility] Reason for consultation: abdominal pain with marked distention 03/01/21 14:51 Consult to Urology Routine Consulting Provider: Rik Nam Reason for consultation: esrd r/o any possible cause of obstruction Has provider been notified: No DS: Diagnosis Discharge Diagnosis (1) Normocytic anemia: Status: Acute (2) Acute kidney injury superimposed on chronic kidney disease: Status: Acute (3) HTN (hypertension): Status: Acute (4) Constipation: Status: Acute (5) Anemia in chronic kidney disease: Status: Acute DS: Summary Hospital Course Hospital Course: from admission H+P by hospitalist Robert Torres, 02/25/21: This is a 65-year-old female past medical history of diabetes, hypertension, chronic constipation, CHF, CKD who presents to the hospital with complaints of abdominal pain.? Patient reports that she has not moved her bowels for the past 6 days, developed abdominal pain for the past 3-4 days, denies any nausea or vomiting, pain is 10/10, improved to 6/10 on arrival to the ED.? Feels pressure, nonradiating, constant, relieved by the pain medication received in the ED no exacerbating factors. Denies any headache or change in vision, no shortness of breath, no cough, no urinary symptoms.? Reports chronic lower extremity edema that has not worsened.? Denies any numbness tingling or weakness. On arrival to the ED patient hemodynamically stable with no significant abnormal vitals except for a slightly elevated blood pressure For WBC count of 11.3, hemoglobin 8.8 which is lower than her usual of 11.4 in October2020 , hematocrit of 26.5, in BUN of 74, creatinine of 9.85 with a baseline around 3.0, alk-phos of 156, troponin of 57 with no chest pain.? UA that is positive for protein, glucose, negative for leukocyte Estrace or nitrites.? COVID-[address] pelvic abdomen shows no active inflammatory bowel changes or bowel obstruction, there is a tiny 100 dense focus in the pancreatic head which could be related with volume of bridging.? A dilated side branch or an underlying lesion is difficult to exclude.? Mild asymmetric hydronephrosis similar to 2016 and could be related to peristalsis.? No obstructive calculi or lesion is identified Given the significant elevation of creatinine patient will be admitted for further management This 65yo woman with type 2 DM and HTN presented with abdominal pain ultimately attributed to constipation. Her renal function worsened to the point where she required initiation of hemodialysis for hypervolemia. Perma-cath was placed 03/02 and she underwent induction HD 03/03-03/05/21. A prior renal biopsy at [facility] was inconclusive due to limited sample, so a repeat biopsy was done on 03/04/21; pathology is pending at the time of discharge. She is HBV-immune from prior infection and HCV antibody was equivocal; HCV viral load is pending at the time of discharge. Serum free light chain ratio was elevated at 2.73; ____. There was no obstructive nephropathy on renal US. She was started on erythropoeitin and transfused 2 units of packed red blood cells for anemia of CKD. For better control of blood pressure, amlodipine and hydralazine doses were increased. She was discharged home with VNA services and outpatient HD placement. Time Spent with Patient Time attestation: Total time spent providing and/or coordinating discharge services: 45 Discharge coordination time: Greater than 30 minutes Quality: Stroke Does the patient have a stroke diagnosis?: No Physical Exam Vital Signs: Vital Signs: Last Vital Signs Temp 98.3 F 03/07/21 07:30 Pulse 80 03/07/21 10:58 Resp 20 03/07/21 07:30 BP 162/63 H 03/07/21 10:58 Pulse Ox 100 03/07/21 07:30 Body Mass Index 38.3 Gen: in no acute distress HEENT: sclera anicteric, moist mucus membranes Neck: supple, R subclavian Permacath Lungs: clear to auscultation bilaterally Heart: regular rate and rhythm, no murmurs Abd: soft, non-tender, non-distended Ext: no edema Skin: warm/well-perfused Neuro: alert and oriented x3, no focal findings Psych: appropriate affect DS: Data Data Completed and Pending Completed studies during hospitalization [Text1]: Laboratory Results WBC 11.7 X10*3/uL (4.8-10.8) H 03/06/21 06:24 RBC 3.24 X10*6/uL (4.20-5.50) L D 03/06/21 06:24 Hgb 9.3 g/dl (12.0-16.0) L 03/06/21 06:24 Hct 28.2 % (37-47) L 03/06/21 06:24 MCV 87.0 fL (80-98) 03/06/21 06:24 MCH 28.7 pg (27.0-33.0) 03/06/21 06:24 MCHC 33.0 g/dl (31.0-35.0) 03/06/21 06:24 RDW 15.2 % (11.0-16.0) 03/06/21 06:24 Plt Count 195 X10*3/uL (160-400) 03/06/21 06:24 MPV 10.5 fL (9.4-12.3) 03/06/21 06:24 Immature Gran % (Auto) 0.5 % (0.0-0.4) H 02/26/21 06:20 Neut % (Auto) 78.3 % (45-73) H 02/26/21 06:20 Lymph % (Auto) 12.6 % (20-40) L 02/26/21 06:20 Holmes % (Auto) 5.4 % (2-11) 02/26/21 06:20 Eos % (Auto) 3.0 % (0-4) 02/26/21 06:20 Baso % (Auto) 0.2 % (0-2) 02/26/21 06:20 Lymph # (Auto) 1.3 X10*3/uL (1.2-4.9) 02/26/21 06:20 Holmes # (Auto) 0.6 X10*3/uL (0.1-1.2) 02/26/21 06:20 Eos # (Auto) 0.3 X10*3/uL (0.0-0.4) 02/26/21 06:20 Baso # (Auto) 0.0 X10*3/uL (0.0-0.2) 02/26/21 06:20 Abs Immat Gran (auto) 0.05 X10*3/uL (0.00-0.03) H 02/26/21 06:20 Absolute Neuts (auto) 8.3 X10*3/uL (2.0-8.3) 02/26/21 06:20 Absolute Nucleated RBC 0.080 X10*3/uL (0.0-0.012) H 03/06/21 06:24 Nucleated RBC % (auto) 0.7 /100WBC (0.0-0.2) H 03/06/21 06:24 PT 10.4 SEC (9.9-13.0) 03/04/21 05:49 INR 0.9 (0.9-1.1) 03/04/21 05:49 APTT 32.9 SEC (24.1-38.0) 03/04/21 05:49 Sodium 132 mmol/L (135-145) L 03/06/21 06:24 Potassium 4.4 mmol/L (3.3-5.1) 03/06/21 06:24 Chloride 99 mmol/L (96-108) 03/06/21 06:24 Carbon Dioxide 21 mmol/L (22-29) L 03/06/21 06:24 Anion Gap 16 (12-20) 03/06/21 06:24 BUN 39 mg/dL (9-16) H 03/06/21 06:24 Creatinine 5.98 mg/dL (0.5-1.4) H* 03/06/21 06:24 Estim Creat Clear Calc 9.9 03/06/21 06:24 Estimated GFR 7 03/06/21 06:24 POC Glucose 219 mg/dL (60-115) H 03/07/21 07:07 Random Glucose 159 mg/dL (60-115) H 03/06/21 06:24 Lactic Acid 0.7 mmol/L (0.5-2.0) 02/25/21 20:50 Calcium 8.6 mg/dL (8.4-10.2) D 03/06/21 06:24 Magnesium 2.4 mg/dL (1.6-2.6) 02/25/21 20:51 Iron 75 mcg/dL (30-160) 03/04/21 05:49 TIBC 250 mcg/dL (228-428) 03/04/21 05:49 % Saturation 30 % (15-50) 03/04/21 05:49 Unsat Iron Binding 175 ug/dL 03/04/21 05:49 Ferritin 131 ng/mL (10-250) 03/04/21 05:49 Total Bilirubin 0.2 mg/dL (0.0-1.0) 02/25/21 20:51 Direct Bilirubin < 0.2 mg/dL (0.0-0.5) 02/25/21 20:51 AST 14 U/L (5-31) 02/25/21 20:51 ALT 12 U/L (0-31) 02/25/21 20:51 Alkaline Phosphatase 156 U/L (39-117) H 02/25/21 20:51 Troponin I High Sens 51.1 ng/L (<3.5-17.0) H* 03/06/21 00:17 Total Protein 6.3 g/dL (6.5-8.0) L 02/25/21 20:51 Albumin 3.4 g/dL (3.5-5.0) L 02/25/21 20:51 Lipase 29 U/L (8-78) 02/25/21 20:51 PTH Intact 168 pg/mL (14-64) H 03/01/21 15:47 Calcium (PTH Intact) 8.3 mg/dL (8.6-10.4) L 03/01/21 15:47 Urine Color STRAW 02/25/21 20:51 Urine Appearance CLEAR 02/25/21 20:51 Urine pH 6.5 (5.0-8.0) 02/25/21 20:51 Ur Specific [place] 1.015 (1.005-1.025) 02/25/21 20:51 Urine Protein 2+ MG/DL (NEG-TRACE) H 02/25/21 20:51 Urine Glucose (UA) 250 MG/DL (NEG) H 02/25/21 20:51 Urine Ketones NEG MG/DL (NEG) 02/25/21 20:51 Urine Blood 1+ (NEG) H 02/25/21 20:51 Urine Nitrite NEG (NEG) 02/25/21 20:51 Ur Leukocyte Esterase NEG (NEG) 02/25/21 20:51 Urine RBC 5-9 /HPF (0) H 02/25/21 20:51 Urine WBC 1-4 /HPF (0-4) 02/25/21 20:51 Ur Squamous Epith Cells 2+ /LPF 02/25/21 20:51 Amorphous Sediment TRACE /LPF 02/25/21 20:51 Urine Bacteria TRACE /LPF 02/25/21 20:51 U Random Total Protein 551 mg/dL (<12) H 03/01/21 18:24 Ur Random Sodium 36.0 mmol/L 03/01/21 18:24 Ur Random Sodium Cancelled 03/01/21 18:24 Urine Creatinine 79.84 mg/dL 03/01/21 18:24 Stool Occult Blood NEGATIVE (NEGATIVE) 02/26/21 12:50 Acetone, Qual Negative (Negative) 02/25/21 20:51 TIERRA Screen POSITIVE (NEGATIVE) A 03/01/21 15:47 TIERRA Titer 1:40 titer H 03/01/21 15:47 TIERRA Titer 2 1:40 titer H 03/01/21 15:47 TIERRA Titer 3 TNP 03/01/21 15:47 TIERRA Pattern SEE NOTE 03/01/21 15:47 TIERRA Pattern 2 Nuclear, Homogeneous A 03/01/21 15:47 TIERRA Pattern 3 TNP 03/01/21 15:47 Proteinase 3 (PR3) Ab <1.0 AI 03/01/21 15:47 Myeloperoxidase Ab <1.0 AI 03/01/21 15:47 Free [place] LC, Quant 153.3 mg/L (3.3-19.4) H 03/01/21 15:47 Free [place] LC, Quant 56.1 mg/L (5.7-26.3) H 03/01/21 15:47 Free [place]/Lambda Ratio 2.73 (0.26-1.65) H 03/01/21 15:47 COVID-19 (KRYSTINA) Negative (Negative) 02/25/21 20:51 COVID-19 Clin Com See Note 02/25/21 20:51 Hep Bs Antigen Negative (Negative) 03/01/21 15:47 Hep Bs Antibody REACTIVE (Nonreactive) 03/01/21 15:47 Hep B Core Total Ab Reactive (Nonreactive) 03/01/21 15:47 Hep B Core IgM Ab Cancelled 03/01/21 15:47 Hep B DNA copies/mL <1.00 NOT DETECTED Log IU/mL (NOT DETECTED) 03/04/21 05:49 Hep B DNA (IU/mL) <10 NOT DETECTED IU/mL (NOT DETECTED) 03/04/21 05:49 Hepatitis C Ab (EIA) (Nonreactive) 03/01/21 15:47 Blood Type O Positive 03/04/21 09:38 Antibody Screen NEGATIVE 03/04/21 09:38 Crossmatch See Detail 03/04/21 09:38 Impressions Abdomen/Pelvis CT 02/25/21 20:29 IMPRESSION: No active inflammatory bowel changes or bowel obstruction. Small hiatal hernia. There is a tiny hypodense focus in the pancreatic head which could be related with volume averaging. However, a dilated side branch or an underlying lesion is difficult to exclude. Recommend further evaluation with a nonemergent abdominal MR if clinically indicated. Mild asymmetric hydronephrosis is similar to minimally increased since 2016 and could be related with peristalsis. No obstructive calculi or lesions are identified. Fat-containing umbilical hernia with some minimal associated skin thickening, correlate for signs of infection/erythema. New since 2016 is a compression deformity at the superior endplate of L3. There are associated degenerative changes at this site and this is likely also degenerative. Correlate clinically for tenderness at this site. Dependent anasarca. Renal Ultrasound 03/01/21 10:01 IMPRESSION: Nondiagnostic exam. Insertion Tunneled Catheter 03/01/21 12:15 IMPRESSION: Right internal jugular 14.5-Arabic 23 cm in length permacath placement. Renal Biopsy CT 03/04/21 11:35 IMPRESSION: Successful CT fluoroscopy-guided left kidney core biopsy performed. No immediate complications. Pending studies at discharge: Pending at discharge 03/04/21 11:48 Surgical [PTH] Routine from CT-guided kidney biopsy Discharge Plan Discharge Patient Disposition: Home Health Service Discharge Diagnosis: VANDANA/CKD, uncontrolled HTN, tobacco abuse, constipation Referrals: [facility] [Outside] - 1 Week Sammy Vicente MD [Physician] - 03/15/21 2:30 pm (You have a follow up appointment by phone on March 15 at 2:30 pm. JOHN Martinez will call you at the time of your appointment.) Clive Lange MD [Physician] - 1 Week Discharge Medications: New amlodipine 10 mg Tablet 10 mg PO BEDTIME Qty: 30 RF: 0 nicotine 21 mg/24 hr Patch 24 Hour 21 mg transdermal DAILY Qty: 30 RF: 0 hydralazine 100 mg tablet 100 mg PO TID Qty: 90 RF: 0 polyethylene glycol 3350 17 gram Powder In Packet 17 g PO DAILY PRN (Reason: constipation) Qty: 30 RF: 0 Lantus U-100 Insulin 100 unit/mL Solution 18 unit subcut DAILY Qty: 3 RF: 0 Continued trazodone 100 mg tablet 1 - 2 tab PO BEDTIME RF: 0 docusate sodium 100 mg capsule 1 - 2 cap PO BEDTIME PRN (Reason: constipation) RF: 0 mirtazapine 15 mg tablet 15 mg PO BEDTIME RF: 0 diclofenac sodium 1 % gel 2 g topical QID RF: 0 buprenorphine-naloxone [Suboxone] 8-2 mg film 1 strip sublingual BID RF: 0 multivitamin [One Daily Multivitamin] Tablet 1 tab PO QAM RF: 0 clonidine HCl 0.1 mg tablet 0.1 mg PO BID RF: 0 diltiazem HCl 180 mg capsule,extended release 24hr 180 mg PO QAM RF: 0 aspirin 81 mg tablet,delayed release (DR/EC) 81 mg PO QAM RF: 0 insulin lispro [Humalog KwikPen Insulin] 100 unit/mL insulin pen 4 - 12 unit subcut TIDAC RF: 0 escitalopram oxalate 5 mg tablet 5 mg PO QAM RF: 0 Spiriva with HandiHaler 18 mcg capsule, w/inhalation device 1 cap inhalation DAILY RF: 0 Lantus Solostar U-100 Insulin 100 unit/mL (3 mL) insulin pen 24 unit subcut DAILY RF: 0 olanzapine 10 mg tablet 1 tab PO BEDTIME RF: 0 albuterol sulfate 2.5 mg /3 mL (0.083 %) solution for nebulization 1 amp inhalation TID PRN (Reason: Wheezing) RF: 0 Discontinued furosemide [Lasix] 40 mg tablet 40 mg PO DAILY Qty: 20 RF: 0 hydralazine 25 mg tablet 25 mg PO TID RF: 0 amlodipine 5 mg tablet 5 mg PO BEDTIME RF: 0 Discharge Orders: Discharge Order (Routine); Ordered 03/04/21 Ordered By: Orlando S Tasia Diet: diabetic diet, low salt diet and other Activity on Discharge: As tolerated Stand Alone Forms: Patient Portal Discharge page Care Plan Goals: kidney health BP control avoid consequences of tobacco abuse avoid constipation Health Concerns: acute on chronic kidney disease, now on HD hypertension tobacco abuse constipation Plan of Treatment: dialysis 3x a week; stop furosemide; low-potassium diet increase amlodipine to 10 mg/d; increase hydralazine to 100 mg 3x a day; stop furosemide nicotine patch high-fiber diet; use docusate + MiraLax as needed decrease Lantus to 18 units see your primary care doctor in 1 week Assessment: see Discharge Summary Patient Instructions: How to Stop Smoking (DC), Dialysis Diet (DC), Hemodialysis (DC)
[2021-03-07 11:19] LABS: Glucose, Whole Blood 189 mg/dL (60-115)
--- NOTE | 2021-03-07 11:49 | MHC.CM.PN ---
pt dc is cancelled received call from kayla at dialysis center [phone] who explins that pts ins will not pay for her to receive dialysis unless her evelia diagnosis is changed to esrd ,juan pablo further explins that her clinical manger and medical staffing coordinator are discuyssing this situation ,t/w has spoken with pt again about going to rehab till this matter is resolved she reluctantly agrees ,pt is also on suboxone referrals will be made to [facility] this case was also discussed with my complaint supervisor
--- NOTE | 2021-03-07 12:58 | HO.PM.IMPN ---
Subjective Subjective Date of Service: 03/07/21 Interval History: Pt interviewed in [place] Oozing at Permacath insertion site resolved. No more constipation. No nausea. No chest pain. Eager to go home; declines STR. Review of Systems Review of Systems: Yes all other systems are reviewed and are negative Physical Exam Vital Signs: Vital Signs: Last Vital Signs Temp 97.9 F 03/07/21 11:55 Pulse 73 03/07/21 11:55 Resp 20 03/07/21 11:55 BP 158/60 H 03/07/21 11:55 Pulse Ox 98 03/07/21 11:55 Body Mass Index 38.3 Gen: in no acute distress HEENT: sclera anicteric, moist mucus membranes Neck: supple, R subclavian Permacath Lungs: clear to auscultation bilaterally Heart: regular rate and rhythm, no murmurs Abd: soft, non-tender, non-distended Ext: no edema Skin: warm/well-perfused Neuro: alert and oriented x3, no focal findings Psych: appropriate affect Objective Data Active Medications Acetaminophen (Acetaminophen 325 Mg Tablet) 650 mg PO Q6H PRN PRN Reason: Pain, Mild (Pain Scale 1-3) Last Admin: 03/07/21 07:53 Dose: 650 mg Documented by: NANI Albuterol Sulfate (Albuterol Sulfate 90 Mcg 8 Gm Inhaler) 2 puff INHALE RQ4H PRN PRN Reason: shortness of breath/wheeze Amlodipine Besylate (Amlodipine Besylate 10 Mg Tablet) 10 mg PO BEDTIME [facility]; Protocol Last Admin: 03/06/21 21:23 Dose: 10 mg Documented by: CHADD Buprenorphine/Naloxone (Buprenorphine/Naloxone 8/2 Mg Film) 1 film SUBLINGUAL BID [facility] Last Admin: 03/07/21 07:53 Dose: 1 film Documented by: NANI Clonidine HCl (Clonidine Hcl 0.1 Mg Tablet) 0.1 mg PO BID [facility]; Protocol Last Admin: 03/07/21 07:54 Dose: 0.1 mg Documented by: NANI Dextrose (Dextrose 50 % 25 Gm/50 Ml Vial) 25 gm IVPUSH Q15M PRN; Protocol PRN Reason: per Hypoglycemia Standing Ord. Dextrose (Dextrose 50 % 25 Gm/50 Ml Vial) 25 gm IVPUSH Q15M PRN; Protocol PRN Reason: per Hypoglycemia Standing Ord. Diltiazem HCl (Diltiazem Hcl Cd 300 Mg Cap.Er.24h) 300 mg PO DAILY [facility]; Protocol Last Admin: 03/07/21 07:54 Dose: 300 mg Documented by: NANI Docusate Sodium (Docusate Sodium 100 Mg Capsule) 100 mg PO DAILY PRN PRN Reason: Constipation Last Admin: 03/06/21 09:10 Dose: 100 mg Documented by: JESSICA Escitalopram Oxalate (Escitalopram Oxalate 5 Mg Tablet) 5 mg PO DAILY [facility] Last Admin: 03/07/21 07:54 Dose: 5 mg Documented by: NANI Glucose (Glucose Gel 15 Gm Gel..Gram.) 15 gm PO Q15M PRN; Protocol PRN Reason: per Hypoglycemia Standing Ord. Glucose (Glucose Gel 15 Gm Gel..Gram.) 15 gm PO Q15M PRN; Protocol PRN Reason: per Hypoglycemia Standing Ord. Hydralazine HCl (Hydralazine Hcl 25 Mg Tablet) 75 mg PO TID [facility]; Protocol Last Admin: 03/07/21 07:55 Dose: 75 mg Documented by: NANI Insulin Glargine (Insulin Glargine,Hum.Rec.Anlog 100 Unit/Ml 10 Ml Vial) 12 unit SUBCUT DAILY [facility] Last Admin: 03/07/21 07:53 Dose: 12 unit Documented by: NANI Insulin Human Lispro (Insulin Lispro 100 Unit/Ml 3 Ml Vial) 0.1 - 10 unit SUBCUT QIDACHS [facility]; Protocol Last Admin: 03/07/21 12:32 Dose: 2 unit Documented by: NANI Lactulose (Lactulose 20 Gm/30 Ml Solution) 20 gm PO DAILY [facility] Last Admin: 03/07/21 07:53 Dose: 20 gm Documented by: NANI Melatonin (Melatonin 3 Mg Tablet) 6 mg PO BEDTIME PRN PRN Reason: Insomnia Last Admin: 03/06/21 03:04 Dose: 6 mg Documented by: KARTHIK Mirtazapine (Mirtazapine 15 Mg Tablet) 15 mg PO BEDTIME [facility] Last Admin: 03/06/21 20:00 Dose: 15 mg Documented by: CHADD Multivitamins/Vitamin C (Multivitamin Tablet) 1 tab PO DAILY [facility] Last Admin: 03/07/21 07:55 Dose: 1 tab Documented by: NANI Nicotine (Nicotine 21 Mg Patch.Td24) 21 mg TRANSDERMA DAILY [facility] Last Admin: 03/07/21 07:55 Dose: 21 mg Documented by: NANI Olanzapine (Olanzapine 10 Mg Tablet) 10 mg PO BEDTIME [facility] Last Admin: 03/06/21 20:00 Dose: 10 mg Documented by: CHADD Ondansetron HCl (Ondansetron Hcl 4 Mg/2 Ml Vial) 4 mg IVPUSH Q8H PRN PRN Reason: Nausea and Vomiting Last Admin: 03/06/21 09:07 Dose: 4 mg Documented by: JESSICA Pharmacy Consult (Consult Rx Perform Med Rec) 1 each MISCELLANE ONCE PRN PRN Reason: Consult order Polyethylene Glycol (Polyethylene Glycol 3350 17 Gm Powd.Pack) 17 gm PO DAILY [facility] Last Admin: 03/07/21 07:55 Dose: 17 gm Documented by: NANI Senna/Docusate Sodium (Sennosides/Docusate Sodium Tablet) 2 tab PO BID [facility] Last Admin: 03/07/21 07:54 Dose: 2 tab Documented by: NANI Tiotropium [place] (Tiotropium [place] 18 Mcg Cap.W.Dev) 1 puff INHALE DAILY [facility] Last Admin: 03/07/21 09:07 Dose: Not Given Documented by: DRAKE Non-Admin Reason: pt unavail Trazodone HCl (Trazodone Hcl 100 Mg Tablet) 100 - 200 mg PO BEDTIME [facility] Last Admin: 03/06/21 20:00 Dose: 100 mg Documented by: CHADD Labs CBC & Chem 7: 03/06/21 06:24 03/06/21 06:24 Labs: Laboratory Results - last 24 hr 03/04/21 03/06/21 03/06/21 05:49 16:34 19:54 POC Glucose 152 H 172 H Hep B DNA copies/mL <1.00 NOT DETECTED Hep B DNA (IU/mL) <10 NOT DETECTED 03/07/21 03/07/21 07:07 11:10 POC Glucose 219 H 189 H Hep B DNA copies/mL Hep B DNA (IU/mL) Assessment and Plan (1) Normocytic anemia: Status: Acute (2) Acute kidney injury superimposed on chronic kidney disease: Status: Acute (3) HTN (hypertension): Status: Acute Assessment and Plan: hospital d#11 65yo F with DM2, HTN presenting with abd pain and found to have VANDANA/CKD # VANDANA/CKD4 - Permacath placed 03/02, induction HD 03/03-03/05. prior renal biopsy at [facility] inconclusive due to limited sample, repeat renal biopsy done 03/04/21 and pending. not yet ESRD given rapidity of decline. no obstruction on renal US. HBV immune from prior infection and HBV DNA negative; HCV Ab equivocal and HCV RNA pending. serum FLCR is abnormally elevated- Nephrology to review biopsy for evidence of light chain deposition disease # anemia of CKD - weekly epo as per Nephrology - transfused 1 unit 03/04 and 1 unit 03/05 # chronic HFpEF - fluid overload due to VANDANA- got IV furosemide then was dialyzed - recent TTE 11/08 showed LVEF 65-70%, no RWMA, abnormal diastolic function # atypical chest pain - resolved, Tn-I indeterminate/flat, no EKG changes of ischemia # HTN - continue amlodipine, clonidine, diltiazem, hydralazine # COPD - continue LAMA, prn ALEYDA # DM2 - basal/bolus insulin # constipation - start senna/docusate + lactulose # tobacco abuse - NRT # opioid use disorder - continue Suboxone # mood disorder - continue trazodone, mirtapazine, olanazpine # morbid obesity - t/c outpt bariatrics referral # VTE ppx - UFH # dispo - on hold as insurance does not pay for outpt HD for VANDANA Quality Stroke Does the patient have a stroke diagnosis?: No VTE Prior VTE?: No VTE Risk Level:: Medical - moderate - high VTE Device Contraindication: Treatment Not Indicated VTE Drug Contraindication: N/A - Med Ordered
[2021-03-07] MEDS: hydrALAZINE HCl 50 MG TABLET 100 MG PO ×2 (16:54→19:57)
[2021-03-07] MEDS: OLANZapine 10 MG TABLET PO (19:57)
[2021-03-07] MEDS: Mirtazapine 15 MG TABLET PO (19:57)
[2021-03-07] MEDS: amLODIPine Besylate 10 MG TABLET PO (19:58)
[2021-03-07 20:44] LABS: Glucose, Whole Blood 153 mg/dL (60-115)
[2021-03-08] VITALS (11 sets, daily range): BP systolic 116–195; BP diastolic 38–70; PULSE 66–89; RESP 14–20; TEMP 36.6–37.1; O2SAT 90–100; BMI 38.6
[2021-03-08 07:44] LABS: Glucose, Whole Blood 156 mg/dL (60-115)
[2021-03-08 07:57] LABS: Glucose, Whole Blood 182 mg/dL (60-115)
[2021-03-08] MEDS: dilTIAZem HCL CD 300 MG CAP.ER.24H PO (08:10)
[2021-03-08] MEDS: cloNIDine HCL 0.1 MG TABLET PO (08:11)
[2021-03-08] MEDS: Escitalopram Oxalate 5 MG TABLET PO (08:12)
[2021-03-08] MEDS: Buprenorphine/Naloxone 8/2 mg FILM 1 FILM SUBLINGUAL ×2 (08:12→20:28)
[2021-03-08] MEDS: Insulin Lispro 100 UNIT/ML 3 ML VIAL SUBCUT ×3 (08:14→20:28)
[2021-03-08] MEDS: Nicotine 21 MG PATCH.TD24 TRANSDERMA (08:25)
[2021-03-08] MEDS: hydrALAZINE HCl 50 MG TABLET 100 MG PO ×3 (09:01→20:26)
--- NOTE | 2021-03-08 10:12 | P.PNIM_ITS ---
Subjective Subjective Date of Service: 03/11/21 Interval History: Pt has no complaints. Awaiting renal biopsy results. If extensive fibrosis and no other cause, likely ESRD. But rapid rise in SCr is atypical for progressive DM/HTN nephropathy Review of Systems Review of Systems: Yes all other systems are reviewed and are negative Physical Exam Vital Signs: Vital Signs: Last Vital Signs Temp 98.4 F 03/08/21 08:00 Pulse 79 03/08/21 09:01 Resp 18 03/08/21 08:00 BP 195/70 H 03/08/21 09:01 Pulse Ox 100 03/08/21 08:00 Body Mass Index 38.6 Gen: in no acute distress HEENT: sclera anicteric, moist mucus membranes Neck: supple, R subclavian Permacath Lungs: clear to auscultation bilaterally Heart: regular rate and rhythm, no murmurs Abd: soft, non-tender, non-distended Ext: no edema Skin: warm/well-perfused Neuro: alert and oriented x3, no focal findings Psych: appropriate affect Objective Data Active Medications Acetaminophen (Acetaminophen 325 Mg Tablet) 650 mg PO Q6H PRN PRN Reason: Pain, Mild (Pain Scale 1-3) Last Admin: 03/07/21 16:54 Dose: 650 mg Documented by: NANI Albuterol Sulfate (Albuterol Sulfate 90 Mcg 8 Gm Inhaler) 2 puff INHALE RQ4H PRN PRN Reason: shortness of breath/wheeze Amlodipine Besylate (Amlodipine Besylate 10 Mg Tablet) 10 mg PO BEDTIME PHAN; Protocol Last Admin: 03/07/21 19:58 Dose: 10 mg Documented by: CHADD Buprenorphine/Naloxone (Buprenorphine/Naloxone 8/2 Mg Film) 1 film SUBLINGUAL BID [facility] Last Admin: 03/08/21 08:12 Dose: 1 film Documented by: LEVI Clonidine HCl (Clonidine Hcl 0.1 Mg Tablet) 0.1 mg PO BID PHAN; Protocol Last Admin: 03/08/21 08:11 Dose: 0.1 mg Documented by: LEVI Dextrose (Dextrose 50 % 25 Gm/50 Ml Vial) 25 gm IVPUSH Q15M PRN; Protocol PRN Reason: per Hypoglycemia Standing Ord. Dextrose (Dextrose 50 % 25 Gm/50 Ml Vial) 25 gm IVPUSH Q15M PRN; Protocol PRN Reason: per Hypoglycemia Standing Ord. Diltiazem HCl (Diltiazem Hcl Cd 300 Mg Cap.Er.24h) 300 mg PO DAILY [facility]; Protocol Last Admin: 03/08/21 08:10 Dose: 300 mg Documented by: LEVI Docusate Sodium (Docusate Sodium 100 Mg Capsule) 100 mg PO DAILY PRN PRN Reason: Constipation Last Admin: 03/06/21 09:10 Dose: 100 mg Documented by: JESSICA Escitalopram Oxalate (Escitalopram Oxalate 5 Mg Tablet) 5 mg PO DAILY [facility] Last Admin: 03/08/21 08:12 Dose: 5 mg Documented by: LEVI Glucose (Glucose Gel 15 Gm Gel..Gram.) 15 gm PO Q15M PRN; Protocol PRN Reason: per Hypoglycemia Standing Ord. Glucose (Glucose Gel 15 Gm Gel..Gram.) 15 gm PO Q15M PRN; Protocol PRN Reason: per Hypoglycemia Standing Ord. Hydralazine HCl (Hydralazine Hcl 50 Mg Tablet) 100 mg PO TID [facility]; Protocol Last Admin: 03/08/21 09:01 Dose: 100 mg Documented by: LEVI Insulin Glargine (Insulin Glargine,Hum.Rec.Anlog 100 Unit/Ml 10 Ml Vial) 14 unit SUBCUT DAILY [facility] Insulin Human Lispro (Insulin Lispro 100 Unit/Ml 3 Ml Vial) 0.1 - 10 unit SUBCUT QIDACHS [facility]; Protocol Last Admin: 03/08/21 08:14 Dose: 2 unit Documented by: LEVI Lactulose (Lactulose 20 Gm/30 Ml Solution) 20 gm PO DAILY [facility] Last Admin: 03/07/21 07:53 Dose: 20 gm Documented by: NANI Melatonin (Melatonin 3 Mg Tablet) 6 mg PO BEDTIME PRN PRN Reason: Insomnia Last Admin: 03/06/21 03:04 Dose: 6 mg Documented by: KARTHIK Mirtazapine (Mirtazapine 15 Mg Tablet) 15 mg PO BEDTIME [facility] Last Admin: 03/07/21 19:57 Dose: 15 mg Documented by: CHADD Multivitamins/Vitamin C (Multivitamin Tablet) 1 tab PO DAILY [facility] Last Admin: 03/08/21 10:08 Dose: Not Given Documented by: NANI Non-Admin Reason: Off unit: Dialysis Nicotine (Nicotine 21 Mg Patch.Td24) 21 mg TRANSDERMA DAILY [facility] Last Admin: 03/08/21 08:25 Dose: 21 mg Documented by: LEVI Olanzapine (Olanzapine 10 Mg Tablet) 10 mg PO BEDTIME [facility] Last Admin: 03/07/21 19:57 Dose: 10 mg Documented by: CHADD Ondansetron HCl (Ondansetron Hcl 4 Mg/2 Ml Vial) 4 mg IVPUSH Q8H PRN PRN Reason: Nausea and Vomiting Last Admin: 03/06/21 09:07 Dose: 4 mg Documented by: JESSICA Pharmacy Consult (Consult Rx Perform Med Rec) 1 each MISCELLANE ONCE PRN PRN Reason: Consult order Polyethylene Glycol (Polyethylene Glycol 3350 17 Gm Powd.Pack) 17 gm PO DAILY [facility] Last Admin: 03/07/21 07:55 Dose: 17 gm Documented by: NANI Senna/Docusate Sodium (Sennosides/Docusate Sodium Tablet) 2 tab PO BID [facility] Last Admin: 03/07/21 19:55 Dose: 2 tab Documented by: CHADD Tiotropium [place] (Tiotropium [place] 18 Mcg Cap.W.Dev) 1 puff INHALE DAILY [facility] Last Admin: 03/08/21 07:32 Dose: 1 puff Documented by: DRAKE Trazodone HCl (Trazodone Hcl 100 Mg Tablet) 100 - 200 mg PO BEDTIME [facility] Last Admin: 03/07/21 21:06 Dose: Not Given Documented by: CHADD Non-Admin Reason: Patient Refused Labs CBC & Chem 7: 03/06/21 06:24 03/10/21 08:10 Labs: Laboratory Results - last 24 hr 03/07/21 03/07/21 03/07/21 11:10 16:25 20:34 POC Glucose 189 H 182 H 153 H 03/08/21 07:22 POC Glucose 156 H Assessment and Plan (1) Normocytic anemia: Status: Acute (2) Acute kidney injury superimposed on chronic kidney disease: Status: Acute (3) HTN (hypertension): Status: Acute Assessment and Plan: hospital d#12 65yo F with DM2, HTN presenting with abd pain and found to have VANDANA/CKD # VANDANA/CKD4 - Permacath placed 03/02, induction HD 03/03-03/05. prior renal biopsy at [facility] inconclusive due to limited sample, repeat renal biopsy done 03/04/21 and pending. given rapidity of decline may not be ESRD but Dr López will review pathology and if fibrosis, likely ESRD. no obstruction on renal US. HBV immune from prior infection and HBV DNA negative; HCV Ab equivocal and HCV RNA pending. serum FLCR is abnormally elevated; previous NEGRO negative. will consult Heme/Onc # anemia of CKD - weekly epo as per Nephrology - transfused 1 unit 03/04 and 1 unit 03/05 # chronic HFpEF - fluid overload due to VANDANA- got IV furosemide then was dialyzed - recent TTE 11/08 showed LVEF 65-70%, no RWMA, abnormal diastolic function # atypical chest pain - resolved, Tn-I indeterminate/flat, no EKG changes of ischemia # uncontrolled HTN - continue amlodipine, diltiazem, hydralazine; will increase clonidine dose 0.1- >0.2 mg bid # COPD - continue LAMA, prn ALEYDA # DM2 - basal/bolus insulin # constipation - senna/docusate + lactulose # tobacco abuse - NRT # opioid use disorder - continue Suboxone # mood disorder - continue trazodone, mirtapazine, olanazpine # morbid obesity - t/c outpt bariatrics referral # VTE ppx - UFH # dispo - on hold as insurance does not pay for outpt HD for VANDANA but at this point pt is HD-dependent Quality Stroke Does the patient have a stroke diagnosis?: No VTE Prior VTE?: No VTE Risk Level:: Medical - moderate - high VTE Device Contraindication: Treatment Not Indicated VTE Drug Contraindication: N/A - Med Ordered
--- NOTE | 2021-03-08 10:18 | P.PNNP_ITS ---
Subjective Subjective Date of Service: 03/08/21 Principal diagnosis: renal failure Interval history: Seen during HD c/o constipation No further bleeding from permcath site Physical Exam Vital Signs: Vital Signs: Last Vital Signs Temp 98.4 F 03/08/21 08:00 Pulse 79 03/08/21 09:01 Resp 18 03/08/21 08:00 BP 195/70 H 03/08/21 09:01 Pulse Ox 100 03/08/21 08:00 Body Mass Index 38.6 Const: General: no acute distress Orientation/consciousness: oriented to person Neck: Neck: Yes supple Resp: Effort & Inspection: normal respiratory effort Auscultation: clear to auscultation bilaterally and no rhonchi Cardio: Jugular venous distension: no JVD Palpation: no palpable S3 Heart sounds: no rubs GI: Palpation (GI): Soft to palpation Auscultation: normal bowel sounds Skin: General skin exam: no jaundice Neuro: General: oriented to person Motor exam (neuro): no asterixis Objective Data Labs CBC & Chem 7: 03/06/21 06:24 03/06/21 06:24 Labs: Laboratory Results - last 24 hr 03/07/21 03/07/21 03/07/21 11:10 16:25 20:34 POC Glucose 189 H 182 H 153 H 03/08/21 07:22 POC Glucose 156 H Procedures Date of Service Date of Service: 03/08/21 Assessment & Plan Assessment and plan (1) VANDANA (acute kidney injury): Status: Acute Assessment and Plan: 1) Acute kidney injury superimposed on chronic kidney disease: ? VANDANA: rapid loss of renal func over the past 3 months Scr 3.0 to now 9 without obvious explanation--most c/w prog CKD and now ESRD Rapid loss of renal function over the past 9 months is very concerning Scr 1.4 ( 05/2020) Scr 3.0 ( 10/2020) Kidney Bx 10/2020: limited sample and significant glomerulosclerosis and no tissue for? IF and EM not suggestive of Im-Cx mediated GN;prior sero unrevealing;? CT show mild hydro ? signif as was apparently present in 2016 as well but not evident on U/S 02/2021 Scr 9.0 First HD Tx 03/03 REC: HD TTS ; repeat kidney Bx done on 03/04/21; will arrange outpt HD spot ( [facility] [facility]): Her insurance does not cover outpatient dialysis for VANDANA. They would only cover ESRD. She is NOT ESRD yet Await pathology report from [facility]. If no clear reversible causes on biopsy, I would deem her as ESRD Time Spent With Patient Time: Total time spent is greater than 50% in coordination of care (as documented) at patient's floor/unit and/or counseling patient: Time with patient: 15 - 24 minutes Progress Note: Quality Stroke Does the patient have a stroke diagnosis?: No
[2021-03-08 11:21] LABS: Anion Gap 16 (12-20); Blood Urea Nitrogen 26 mg/dL (9-16); Calcium 7.9 mg/dL (8.4-10.2); Carbon Dioxide 22 mmol/L (22-29); Chloride 98 mmol/L (96-108); Creatinine Clr Calc Pharmacy 13.9; Estimated Glomerular Filt Rate 11; Glucose Random 146 mg/dL (60-115); Potassium 3.5 mmol/L (3.3-5.1); Sodium 132 mmol/L (135-145)
[2021-03-08 12:40] LABS: Glucose, Whole Blood 126 mg/dL (60-115)
[2021-03-08] MEDS: Insulin Glargine,Hum.rec.anlog 100 UNIT/ML 10 ML VIAL 14 UNIT SUBCUT (12:43)
[2021-03-08] MEDS: Acetaminophen 325 MG TABLET 650 MG PO ×2 (12:46→20:26)
[2021-03-08 13:06] LABS: HCV Log PCR <1.18 NOT DETECTED Log IU/mL (NOT DETECTED); HepC Viral Load <15 NOT DETECTED IU/mL (NOT DETECTED)
[2021-03-08 15:40] LABS: Glucose, Whole Blood 209 mg/dL (60-115)
[2021-03-08 19:55] LABS: Glucose, Whole Blood 208 mg/dL (60-115)
[2021-03-08] MEDS: Mirtazapine 15 MG TABLET PO (20:25)
[2021-03-08] MEDS: amLODIPine Besylate 10 MG TABLET PO (20:25)
[2021-03-08] MEDS: cloNIDine HCL 0.2 MG TABLET PO (20:25)
[2021-03-08] MEDS: traZODone HCL 100 MG TABLET PO (20:25)
[2021-03-08] MEDS: Sennosides/Docusate Sodium TABLET 2 TAB PO (20:26)
[2021-03-08] MEDS: OLANZapine 10 MG TABLET PO (20:26)
[2021-03-08] MEDS: Melatonin 3 MG TABLET 6 MG PO (20:27)
[2021-03-09] VITALS (15 sets, daily range): BP systolic 111–196; BP diastolic 54–94; PULSE 60–80; RESP 14–19; TEMP 36.3–37; O2SAT 96–100; BMI 40.6
[2021-03-09 07:31] LABS: Glucose, Whole Blood 141 mg/dL (60-115)
[2021-03-09] MEDS: Insulin Glargine,Hum.rec.anlog 100 UNIT/ML 10 ML VIAL 14 UNIT SUBCUT (08:59)
[2021-03-09] MEDS: cloNIDine HCL 0.2 MG TABLET PO ×2 (09:00→22:30)
[2021-03-09] MEDS: Sennosides/Docusate Sodium TABLET 2 TAB PO ×2 (09:00→22:27)
[2021-03-09] MEDS: hydrALAZINE HCl 50 MG TABLET 100 MG PO ×3 (09:01→22:30)
[2021-03-09] MEDS: Multivitamin TABLET 1 TAB PO (09:02)
[2021-03-09] MEDS: Escitalopram Oxalate 5 MG TABLET PO (09:03)
[2021-03-09] MEDS: dilTIAZem HCL CD 300 MG CAP.ER.24H PO (09:03)
[2021-03-09] MEDS: Nicotine 21 MG PATCH.TD24 TRANSDERMA (09:08)
[2021-03-09] MEDS: Lactulose 20 GM/30 ML SOLUTION PO (09:08)
[2021-03-09] MEDS: polyethylene glycoL 3350 17 GM POWD.PACK PO (09:08)
[2021-03-09] MEDS: Buprenorphine/Naloxone 8/2 mg FILM 1 FILM SUBLINGUAL ×2 (09:08→22:31)
--- NOTE | 2021-03-09 10:15 | P.CNHO_ITS ---
Subjective - Subjective Chief complaint: None Patient: new to practice Consult date: 03/09/21 Requesting Physician: Dr. Mesa Primary Care Provider: Sammy Vicente MD HPI - Consult Narrative Reason for consult: Abnormal serum free light chain assay Narrative: Cruz Muller is a 65 year old female is admitted for acute renal failure. She presented with complaints of abdominal pain and lower extremity swelling. On arrival to the ED patient hemodynamically stable with no significant abnormal vitals except for a slightly elevated blood pressure. Labs revealed WBC count of 11.3, hemoglobin 8.8 which is lower than her usual of 11.4 in October2020, BUN of 74, creatinine of 9.85 with a baseline around 3.0. CT pelvic abdomen shows no active inflammatory bowel changes or bowel obstruction. Mild asymmetric hydronephrosis similar to 2016 and could be related to peristalsis. No obstructive calculi or lesion is identified. She has been started on hemodialysis. She was noted to have slightly elevated serum light chains and abnormal ratio. Further hematology evaluation is requested for this finding and suspicion of plasma cell dyscrasia. Patient has no complaints today and she was resting comfortably in bed during the interview. Review of Systems - Constitutional Reports as per HPI, Reports no additional constitutional complaints - Cardiovascular Reports no additional cardiovascular complaints - Respiratory Reports no additional respiratory complaints - Gastrointestinal Reports no additional gastrointestinal complaints - Neurologic Denies syncope [facility] Medical History: Medical History (Last Updated 03/07/21 @ 11:10 by Florence Mesa MD) CHF (congestive heart failure) Constipation Diabetes mellitus Diastolic congestive heart failure Hypertension Surgical History: Surgical History (Last Reviewed 03/04/21 @ 13:50 by Yumiko Contreras PT) No pertinent past surgical history Social History: Social History (Last Reviewed 02/26/21 @ 17:04 by Humza Sanders MD) Living Situation History: Household Members: None Housing: House Do you presently have visiting nurse or other home services: Yes Do you presently have visiting nurse or other home services comment: [employer] 7days/week Alcohol History Details: Alcohol intake frequency: does not drink Tobacco History: Patient Tobacco Use Status: Current everyday Tobacco Tobacco use type: Cigarette Cigarette Packs Per Day: 1 Smoked in Last 30 Days: Yes Patient Interested in Nicotine Replacement: Yes Patient Given Instructions on How to Stop Smoking: Yes Date Education Initiated: 10/09/21 Second Hand Smoke Exposure: No Substance Use History: Use of substances other than those prescribed or required for medical reasons : No Substance Use Type: Heroin Currently Displaying Signs/Symptoms of Drug Intoxication Withdrawal: No Any prior treatment program specific to substance use: No Domestic Abuse History: Have you been hit, kicked, punched, or otherwise hurt by someone within the past year? If so, by whom?: No Do you feel safe in your current relationship?: No Current Relationship Is there a partner from a previous relationship who is making you feel unsafe now?: No Are you made to feel afraid or neglected: No Healthcare Practices: [employer] [facility] Practices: taoist Advance Directives: Advance Directives: No Advance Directives Information Provided: No Advance Directives on File: No Homicidal Assessment: Do you have thoughts of harming others: None Do you have a plan to hurt others: No Plan Nutrition Assessment: Recently lost weight without trying: No How much weight loss: Not applicable Eating poorly because of decreased appetite: No Nutrition screen score: 0 Nutrition Risks: No Nutritional Risk Patient : No : No Poor oral hygiene: No Occupation Assessmet: service: No Current occupational status: unemployed Current occupational status: disabled Home Medications and Allergies Current Medications: Current Medications Acetaminophen (Acetaminophen 325 Mg Tablet) 650 mg PO Q6H PRN PRN Reason: Pain, Mild (Pain Scale 1-3) Last Admin: 03/08/21 20:26 Dose: 650 mg Documented by: Albuterol Sulfate (Albuterol Sulfate 90 Mcg 8 Gm Inhaler) 2 puff INHALE RQ4H PRN PRN Reason: shortness of breath/wheeze Amlodipine Besylate (Amlodipine Besylate 10 Mg Tablet) 10 mg PO BEDTIME [facility]; Protocol Last Admin: 03/08/21 20:25 Dose: 10 mg Documented by: Buprenorphine/Naloxone (Buprenorphine/Naloxone 8/2 Mg Film) 1 film SUBLINGUAL BID [facility] Last Admin: 03/09/21 09:08 Dose: 1 film Documented by: Clonidine HCl (Clonidine Hcl 0.2 Mg Tablet) 0.2 mg PO BID [facility]; Protocol Last Admin: 03/09/21 09:00 Dose: 0.2 mg Documented by: Dextrose (Dextrose 50 % 25 Gm/50 Ml Vial) 25 gm IVPUSH Q15M PRN; Protocol PRN Reason: per Hypoglycemia Standing Ord. Dextrose (Dextrose 50 % 25 Gm/50 Ml Vial) 25 gm IVPUSH Q15M PRN; Protocol PRN Reason: per Hypoglycemia Standing Ord. Diltiazem HCl (Diltiazem Hcl Cd 300 Mg Cap.Er.24h) 300 mg PO DAILY [facility]; Protocol Last Admin: 03/09/21 09:03 Dose: 300 mg Documented by: Docusate Sodium (Docusate Sodium 100 Mg Capsule) 100 mg PO DAILY PRN PRN Reason: Constipation Last Admin: 03/06/21 09:10 Dose: 100 mg Documented by: Escitalopram Oxalate (Escitalopram Oxalate 5 Mg Tablet) 5 mg PO DAILY [facility] Last Admin: 03/09/21 09:03 Dose: 5 mg Documented by: Glucose (Glucose Gel 15 Gm Gel..Gram.) 15 gm PO Q15M PRN; Protocol PRN Reason: per Hypoglycemia Standing Ord. Glucose (Glucose Gel 15 Gm Gel..Gram.) 15 gm PO Q15M PRN; Protocol PRN Reason: per Hypoglycemia Standing Ord. Hydralazine HCl (Hydralazine Hcl 50 Mg Tablet) 100 mg PO TID [facility]; Protocol Last Admin: 03/09/21 09:01 Dose: 100 mg Documented by: Insulin Glargine (Insulin Glargine,Hum.Rec.Anlog 100 Unit/Ml 10 Ml Vial) 14 unit SUBCUT DAILY [facility] Last Admin: 03/09/21 08:59 Dose: 14 unit Documented by: Insulin Human Lispro (Insulin Lispro 100 Unit/Ml 3 Ml Vial) 0.1 - 10 unit SUBCUT QIDACHS [facility]; Protocol Last Admin: 03/09/21 08:48 Dose: Not Given Documented by: Lactulose (Lactulose 20 Gm/30 Ml Solution) 20 gm PO DAILY [facility] Last Admin: 03/09/21 09:08 Dose: 20 gm Documented by: Melatonin (Melatonin 3 Mg Tablet) 6 mg PO BEDTIME PRN PRN Reason: Insomnia Last Admin: 03/08/21 20:27 Dose: 6 mg Documented by: Mirtazapine (Mirtazapine 15 Mg Tablet) 15 mg PO BEDTIME [facility] Last Admin: 03/08/21 20:25 Dose: 15 mg Documented by: Multivitamins/Vitamin C (Multivitamin Tablet) 1 tab PO DAILY [facility] Last Admin: 03/09/21 09:02 Dose: 1 tab Documented by: Nicotine (Nicotine 21 Mg Patch.Td24) 21 mg TRANSDERMA DAILY [facility] Last Admin: 03/09/21 09:08 Dose: 21 mg Documented by: Olanzapine (Olanzapine 10 Mg Tablet) 10 mg PO BEDTIME [facility] Last Admin: 03/08/21 20:26 Dose: 10 mg Documented by: Ondansetron HCl (Ondansetron Hcl 4 Mg/2 Ml Vial) 4 mg IVPUSH Q8H PRN PRN Reason: Nausea and Vomiting Last Admin: 03/06/21 09:07 Dose: 4 mg Documented by: Pharmacy Consult (Consult Rx Perform Med Rec) 1 each MISCELLANE ONCE PRN PRN Reason: Consult order Polyethylene Glycol (Polyethylene Glycol 3350 17 Gm Powd.Pack) 17 gm PO DAILY [facility] Last Admin: 03/09/21 09:08 Dose: 17 gm Documented by: Senna/Docusate Sodium (Sennosides/Docusate Sodium Tablet) 2 tab PO BID [facility] Last Admin: 03/09/21 09:00 Dose: 2 tab Documented by: Tiotropium [place] (Tiotropium [place] 18 Mcg Cap.W.Dev) 1 puff INHALE DAILY [facility] Last Admin: 03/09/21 07:51 Dose: 1 puff Documented by: Trazodone HCl (Trazodone Hcl 100 Mg Tablet) 100 - 200 mg PO BEDTIME [facility] Last Admin: 03/08/21 20:25 Dose: 100 mg Documented by: Home Medications Medication Instructions Recorded Confirmed Type aspirin 81 mg tablet,delayed 81 mg PO QAM 10/22/20 02/25/21 History release buprenorphine 8 mg-naloxone 2 mg 1 strip SUBLINGUAL BID 10/22/20 02/25/21 History sublingual film (Suboxone) clonidine HCl 0.1 mg tablet 0.1 mg PO BID 10/22/20 02/25/21 History diclofenac sodium 1 % topical gel 2 g TOPICAL QID 10/22/20 02/25/21 History diltiazem HCl 180 mg 180 mg PO QAM 10/22/20 02/25/21 History capsule,extended release 24 hr docusate sodium 100 mg capsule 1 - 2 cap PO BEDTIME PRN 10/22/20 02/25/21 History escitalopram oxalate 5 mg tablet 5 mg PO QAM 10/22/20 02/25/21 History insulin glargine 100 unit/mL (3 24 unit SUBCUT DAILY 10/22/20 02/25/21 History mL) subcutaneous pen (Lantus Solostar U-100 Insulin) insulin lispro 100 unit/mL 4 - 12 unit SUBCUT TIDAC 10/22/20 02/25/21 History subcutaneous pen (Humalog KwikPen (U-100) Insulin) mirtazapine 15 mg tablet 15 mg PO BEDTIME 10/22/20 02/25/21 History multivitamin (One Daily 1 tab PO QAM 10/22/20 02/25/21 History Multivitamin) tiotropium bromide 18 mcg capsule 1 cap INHALATION DAILY 10/22/20 02/25/21 History with inhalation device (Spiriva with HandiHaler) trazodone 100 mg tablet 1 - 2 tab PO BEDTIME 10/22/20 02/25/21 History albuterol sulfate 1 amp INHALATION TID PRN 02/25/21 02/25/21 History olanzapine 10 mg tablet 1 tab PO BEDTIME 02/25/21 02/25/21 History Allergies Allergy/AdvReac Type Severity Reaction Status Date / Time No Known Allergies Allergy Mild NOT Verified 12/14/20 11:50 APPLICABLE Physical Exam Vital signs: Vital Signs Temp 98.4 F 03/09/21 07:08 Pulse 80 03/09/21 09:03 Resp 19 03/09/21 07:08 BP 196/94 H 03/09/21 09:03 Pulse Ox 96 03/09/21 08:47 Intake & Output 03/08/21 03/09/21 03/09/21 18:59 06:59 18:59 Intake Total 480 / 1080 600 / 1080 Output Total 100 / 100 0 / 100 Balance 380 / 980 600 / 980 Urine Output (Average ml/kg/hr) 0.09 0.00 Intake: Intake, Oral Amount 480 / 1080 600 / 1080 Output: Output, Urine Amount 0 / 0 Output, Urine Amount (Catheter) 100 / 100 [place] 100 / 100 Other: Meal Refused No NPO No Breakfast % Eaten 100% Dinner % Eaten 100% Number of Incontinent Voids 1 Urine Color Yellow Last Bowel Movement 03/07/21 Weight 97.6 kg Weight in Grams [id number] Weight 97.6 kg - Constitutional Present: no acute distress, chronically ill appearing, cooperative - Routine HEENT Exam Eye: Present: conjunctivae pale - Routine Neck Exam Present: supple - Routine Respiratory Exam Absent: accessory muscle use, respiratory distress - Routine Cardiovascular Exam Cardiovascular: Present: S1, S2 - Routine Extremities Exam Present: pedal edema - Routine Skin Exam Present: intact. Absent: cyanosis - Routine Neurological Exam Present: alert, oriented X3 Hem/Onc Consult Result - Labs CBC & Chem 7: 03/06/21 06:24 03/08/21 10:54 Labs: BMP 03/08/21 10:54 Sodium 132 L Potassium 3.5 D Chloride 98 Carbon Dioxide 22 BUN 26 H Creatinine 4.24 H* Calcium 7.9 L D Assessment and Plan Patient Active problem list reviewed?: Yes (1) Elevated serum immunoglobulin free light chains Status: Acute Assessment and plan: 1. This is a pleasant 65-year-old woman admitted for acute on chronic renal failure. She has multiple comorbidities. She has just undergone repeat kidney biopsy, past biopsy revealed glomerular sclerosis but inconclusive due to limited sample. She was found to have elevated serum kappa kappa light chain of 153.3, free lambda light chain of 56.1 and free kappa/lambda ratio of 2.73. Serum immunofixation in October 2020 did not show monoclonal gammopathy. A 24 hour urine for immunofixation can be for performed for kidney biopsy suggestive of light chain myeloma. Based on blood work so far, she does not meet criteria for multiple myeloma or plasma cell dyscrasia. Iron levels are normal. 2. Anemia of chronic kidney disease, she is receiving Procrit per Nephrology. I thank you for this consultation. - Time Spent With Patient Time Spent with Patient (in minutes): 30
--- NOTE | 2021-03-09 10:19 | P.PNNP_ITS ---
Subjective Subjective Date of Service: 03/09/21 Principal diagnosis: renal failure Interval history: Events noted Feeling better today Physical Exam Vital Signs: Vital Signs: Last Vital Signs Temp 98.4 F 03/09/21 07:08 Pulse 80 03/09/21 09:03 Resp 19 03/09/21 07:08 BP 196/94 H 03/09/21 09:03 Pulse Ox 96 03/09/21 08:47 Body Mass Index 40.6 Const: General: no acute distress Orientation/consciousness: oriented to person Neck: Neck: Yes supple Resp: Effort & Inspection: normal respiratory effort Auscultation: clear to auscultation bilaterally and no rhonchi Cardio: Jugular venous distension: no JVD Palpation: no palpable S3 Heart sounds: no rubs GI: Palpation (GI): Soft to palpation Auscultation: normal bowel sounds Skin: General skin exam: no jaundice Neuro: General: oriented to person Motor exam (neuro): no asterixis Objective Data Labs CBC & Chem 7: 03/06/21 06:24 03/08/21 10:54 Labs: Laboratory Results - last 24 hr 03/04/21 03/08/21 03/08/21 05:49 10:54 12:36 Sodium 132 L Potassium 3.5 D Chloride 98 Carbon Dioxide 22 Anion Gap 16 BUN 26 H Creatinine 4.24 H* Estim Creat Clear Calc 13.9 Estimated GFR 11 POC Glucose 126 H Random Glucose 146 H Calcium 7.9 L D Hep C Viral Load <15 NOT DETECTED Hep C Viral Load Log <1.18 NOT DETECTED 03/08/21 03/08/21 03/09/21 15:27 19:46 07:08 Sodium Potassium Chloride Carbon Dioxide Anion Gap BUN Creatinine Estim Creat Clear Calc Estimated GFR POC Glucose 209 H 208 H 141 H Random Glucose Calcium Hep C Viral Load Hep C Viral Load Log Procedures Date of Service Date of Service: 03/09/21 Assessment & Plan Assessment and plan (1) VANDANA (acute kidney injury): Status: Acute Assessment and Plan: 1) Acute kidney injury superimposed on chronic kidney disease: ? VANDANA: rapid loss of renal func over the past 3 months Scr 3.0 to now 9 without obvious explanation--most c/w prog CKD and now ESRD Rapid loss of renal function over the past 9 months is very concerning Scr 1.4 ( 05/2020) Scr 3.0 ( 10/2020) Kidney Bx 10/2020: limited sample and significant glomerulosclerosis and no tissue for? IF and EM not suggestive of Im-Cx mediated GN;prior sero unrevealing;? CT show mild hydro ? signif as was apparently present in 2016 as well but not evident on U/S 02/2021 Scr 9.0 First HD Tx 03/03 REC: HD TTS ; repeat kidney Bx done on 03/04/21; will arrange outpt HD spot ( [facility]): Her insurance does not cover outpatient dialysis for VANDANA. They would only cover ESRD. She is NOT deemed ESRD yet reached out to [facility] pathology- Report is not available yet. I have asked them to cortext me with the results( hopefully today!) Await pathology report from [facility]. If no clear reversible causes on biopsy, I would deem as ESRD Time Spent With Patient Time: Total time spent is greater than 50% in coordination of care (as documented) at patient's floor/unit and/or counseling patient: Time with patient: 15 - 24 minutes Progress Note: Quality Stroke Does the patient have a stroke diagnosis?: No
[2021-03-09 11:21] LABS: Glucose, Whole Blood 171 mg/dL (60-115)
[2021-03-09] MEDS: Insulin Lispro 100 UNIT/ML 3 ML VIAL SUBCUT ×3 (13:06→22:31)
--- NOTE | 2021-03-09 13:21 | P.PNIM_ITS ---
Subjective Subjective Date of Service: 03/09/21 Interval History: Seen in f/u for renal failure now requirring dialysis Review of Systems no fever, no sob Physical Exam Vital Signs: Vital Signs: Last Vital Signs Temp 97.6 F 03/09/21 11:05 Pulse 73 03/09/21 11:05 Resp 18 03/09/21 11:05 BP 146/66 H 03/09/21 11:05 Pulse Ox 97 03/09/21 11:05 Body Mass Index 40.6 General: AO X 3, no acute distress Resp: CTA bilateral CVS: S1,S2,RRR GI: +BS, NT, no distention Skin: No rash Neuro: motor grossly intact Psych: appropriate affect Objective Data Active Medications Acetaminophen (Acetaminophen 325 Mg Tablet) 650 mg PO Q6H PRN PRN Reason: Pain, Mild (Pain Scale 1-3) Last Admin: 03/08/21 20:26 Dose: 650 mg Documented by: SHOAIB Albuterol Sulfate (Albuterol Sulfate 90 Mcg 8 Gm Inhaler) 2 puff INHALE RQ4H PRN PRN Reason: shortness of breath/wheeze Amlodipine Besylate (Amlodipine Besylate 10 Mg Tablet) 10 mg PO BEDTIME [facility]; Protocol Last Admin: 03/08/21 20:25 Dose: 10 mg Documented by: SHOAIB Buprenorphine/Naloxone (Buprenorphine/Naloxone 8/2 Mg Film) 1 film SUBLINGUAL BID [facility] Last Admin: 03/09/21 09:08 Dose: 1 film Documented by: DIEUDONNE Clonidine HCl (Clonidine Hcl 0.2 Mg Tablet) 0.2 mg PO BID [facility]; Protocol Last Admin: 03/09/21 09:00 Dose: 0.2 mg Documented by: DIEUDONNE Dextrose (Dextrose 50 % 25 Gm/50 Ml Vial) 25 gm IVPUSH Q15M PRN; Protocol PRN Reason: per Hypoglycemia Standing Ord. Dextrose (Dextrose 50 % 25 Gm/50 Ml Vial) 25 gm IVPUSH Q15M PRN; Protocol PRN Reason: per Hypoglycemia Standing Ord. Diltiazem HCl (Diltiazem Hcl Cd 300 Mg Cap.Er.24h) 300 mg PO DAILY [facility]; Protocol Last Admin: 03/09/21 09:03 Dose: 300 mg Documented by: DIEUDONNE Docusate Sodium (Docusate Sodium 100 Mg Capsule) 100 mg PO DAILY PRN PRN Reason: Constipation Last Admin: 03/06/21 09:10 Dose: 100 mg Documented by: JESSICA Escitalopram Oxalate (Escitalopram Oxalate 5 Mg Tablet) 5 mg PO DAILY [facility] Last Admin: 03/09/21 09:03 Dose: 5 mg Documented by: DIEUDONNE Glucose (Glucose Gel 15 Gm Gel..Gram.) 15 gm PO Q15M PRN; Protocol PRN Reason: per Hypoglycemia Standing Ord. Glucose (Glucose Gel 15 Gm Gel..Gram.) 15 gm PO Q15M PRN; Protocol PRN Reason: per Hypoglycemia Standing Ord. Hydralazine HCl (Hydralazine Hcl 50 Mg Tablet) 100 mg PO TID [facility]; Protocol Last Admin: 03/09/21 09:01 Dose: 100 mg Documented by: DIEUDONNE Insulin Glargine (Insulin Glargine,Hum.Rec.Anlog 100 Unit/Ml 10 Ml Vial) 14 unit SUBCUT DAILY [facility] Last Admin: 03/09/21 08:59 Dose: 14 unit Documented by: DIEUDONNE Insulin Human Lispro (Insulin Lispro 100 Unit/Ml 3 Ml Vial) 0.1 - 10 unit SUBCUT QIDACHS [facility]; Protocol Last Admin: 03/09/21 13:06 Dose: 2 unit Documented by: DIEUDONNE Lactulose (Lactulose 20 Gm/30 Ml Solution) 20 gm PO DAILY [facility] Last Admin: 03/09/21 09:08 Dose: 20 gm Documented by: DIEUDONNE Melatonin (Melatonin 3 Mg Tablet) 6 mg PO BEDTIME PRN PRN Reason: Insomnia Last Admin: 03/08/21 20:27 Dose: 6 mg Documented by: SHOAIB Mirtazapine (Mirtazapine 15 Mg Tablet) 15 mg PO BEDTIME [facility] Last Admin: 03/08/21 20:25 Dose: 15 mg Documented by: SHOAIB Multivitamins/Vitamin C (Multivitamin Tablet) 1 tab PO DAILY [facility] Last Admin: 03/09/21 09:02 Dose: 1 tab Documented by: DIEUDONNE Nicotine (Nicotine 21 Mg Patch.Td24) 21 mg TRANSDERMA DAILY [facility] Last Admin: 03/09/21 09:08 Dose: 21 mg Documented by: DIEUDONNE Olanzapine (Olanzapine 10 Mg Tablet) 10 mg PO BEDTIME [facility] Last Admin: 03/08/21 20:26 Dose: 10 mg Documented by: SHOAIB Ondansetron HCl (Ondansetron Hcl 4 Mg/2 Ml Vial) 4 mg IVPUSH Q8H PRN PRN Reason: Nausea and Vomiting Last Admin: 03/06/21 09:07 Dose: 4 mg Documented by: JESSICA Pharmacy Consult (Consult Rx Perform Med Rec) 1 each MISCELLANE ONCE PRN PRN Reason: Consult order Polyethylene Glycol (Polyethylene Glycol 3350 17 Gm Powd.Pack) 17 gm PO DAILY [facility] Last Admin: 03/09/21 09:08 Dose: 17 gm Documented by: DIEUDONNE Senna/Docusate Sodium (Sennosides/Docusate Sodium Tablet) 2 tab PO BID [facility] Last Admin: 03/09/21 09:00 Dose: 2 tab Documented by: DIEUDONNE Tiotropium [place] (Tiotropium [place] 18 Mcg Cap.W.Dev) 1 puff INHALE DAILY [facility] Last Admin: 03/09/21 07:51 Dose: 1 puff Documented by: CLARISSA Trazodone HCl (Trazodone Hcl 100 Mg Tablet) 100 - 200 mg PO BEDTIME [facility]AN Last Admin: 03/08/21 20:25 Dose: 100 mg Documented by: SHOAIB Labs CBC & Chem 7: 03/06/21 06:24 03/08/21 10:54 Labs: Laboratory Results - last 24 hr 03/08/21 03/08/21 03/09/21 15:27 19:46 07:08 POC Glucose 209 H 208 H 141 H 03/09/21 11:05 POC Glucose 171 H Assessment and Plan (1) Normocytic anemia: Status: Acute (2) Acute kidney injury superimposed on chronic kidney disease: Status: Acute (3) HTN (hypertension): Status: Acute Assessment and Plan: Hospital d#13 65yo F with DM2, HTN presenting with abd pain and found to have VANDANA/CKD # VANDANA/CKD4 - Permacath placed 03/02, induction HD 03/03-03/05. prior renal biopsy at [facility] inconclusive due to limited sample, repeat renal biopsy done 03/04/21 and pending. given rapidity of decline may not be ESRD but Dr Athreya will review pathology and if fibrosis, likely ESRD. no obstruction on renal US. HBV immune from prior infection and HBV DNA negative; HCV Ab equivocal and HCV RNA pending. serum FLCR is abnormally elevated; previous NEGRO negative. will consult Heme/Onc # anemia of CKD - weekly epo as per Nephrology - transfused 1 unit 03/04 and 1 unit 03/05 # chronic HFpEF - fluid overload due to VANDANA- got IV furosemide then was dialyzed - recent TTE 11/08 showed LVEF 65-70%, no RWMA, abnormal diastolic function # atypical chest pain - resolved, Tn-I indeterminate/flat, no EKG changes of ischemia # uncontrolled HTN - continue amlodipine, diltiazem, hydralazine; will increase clonidine dose 0.1- >0.2 mg bid # COPD - continue LAMA, prn ALEYDA # DM2 - basal/bolus insulin # constipation - senna/docusate + lactulose # tobacco abuse - NRT # opioid use disorder - continue Suboxone # mood disorder - continue trazodone, mirtapazine, olanazpine # morbid obesity - t/c outpt bariatrics referral # VTE ppx - UFH # dispo - on hold as insurance does not pay for outpt HD for VANDANA but at this point pt is HD-dependent Quality Stroke Does the patient have a stroke diagnosis?: No VTE Prior VTE?: No VTE Risk Level:: Medical - moderate - high VTE Device Contraindication: Treatment Not Indicated VTE Drug Contraindication: N/A - Med Ordered
--- NOTE | 2021-03-09 14:00 | MHC.CM.PN ---
per rounds awaitinng results of liver biopsyto determine esrd pts ins will not pay till diagnosi is esrd
[2021-03-09 16:36] LABS: Glucose, Whole Blood 215 mg/dL (60-115)
[2021-03-09 20:34] LABS: Glucose, Whole Blood 238 mg/dL (60-115)
[2021-03-09] MEDS: traZODone HCL 100 MG TABLET PO (22:30)
[2021-03-09] MEDS: Mirtazapine 15 MG TABLET PO (22:31)
[2021-03-09] MEDS: OLANZapine 10 MG TABLET PO (22:31)
[2021-03-09] MEDS: amLODIPine Besylate 10 MG TABLET PO (22:31)
[2021-03-10] VITALS (10 sets, daily range): BP systolic 118–148; BP diastolic 58–67; PULSE 63–68; RESP 16–18; TEMP 36.5–37.1; O2SAT 97–100; BMI 41.6
[2021-03-10 07:37] LABS: Glucose, Whole Blood 225 mg/dL (60-115)
[2021-03-10 09:09] LABS: Anion Gap 15 (12-20); Blood Urea Nitrogen 44 mg/dL (9-16); Calcium 8.7 mg/dL (8.4-10.2); Carbon Dioxide 23 mmol/L (22-29); Chloride 97 mmol/L (96-108); Creatinine Clr Calc Pharmacy 8.5; Estimated Glomerular Filt Rate 6; Glucose Random 212 mg/dL (60-115); Potassium 4.4 mmol/L (3.3-5.1); Sodium 131 mmol/L (135-145)
[2021-03-10] MEDS: Insulin Lispro 100 UNIT/ML 3 ML VIAL SUBCUT ×2 (09:12→16:27)
[2021-03-10] MEDS: Insulin Glargine,Hum.rec.anlog 100 UNIT/ML 10 ML VIAL 14 UNIT SUBCUT (09:13)
[2021-03-10] MEDS: hydrALAZINE HCl 50 MG TABLET 100 MG PO ×3 (09:16→20:34)
[2021-03-10] MEDS: Escitalopram Oxalate 5 MG TABLET PO (09:18)
[2021-03-10] MEDS: dilTIAZem HCL CD 300 MG CAP.ER.24H PO (09:19)
[2021-03-10] MEDS: Multivitamin TABLET 1 TAB PO (09:19)
[2021-03-10] MEDS: cloNIDine HCL 0.2 MG TABLET PO ×2 (09:19→20:35)
[2021-03-10] MEDS: polyethylene glycoL 3350 17 GM POWD.PACK PO (09:20)
[2021-03-10] MEDS: Lactulose 20 GM/30 ML SOLUTION PO (09:22)
[2021-03-10] MEDS: Buprenorphine/Naloxone 8/2 mg FILM 1 FILM SUBLINGUAL ×2 (09:22→20:35)
[2021-03-10] MEDS: Nicotine 21 MG PATCH.TD24 TRANSDERMA (09:23)
--- NOTE | 2021-03-10 10:03 | P.PNNP_ITS ---
Subjective Subjective Date of Service: 03/11/21 Principal diagnosis: renal failure Interval history: Seen in f/u for renal failure now requirring dialysis ON HD Physical Exam Vital Signs: Vital Signs: Last Vital Signs Temp 98.7 F 03/10/21 07:09 Pulse 65 03/10/21 09:19 Resp 18 03/10/21 07:09 BP 134/67 03/10/21 09:19 Pulse Ox 97 03/10/21 07:09 Body Mass Index 41.6 Const: General: no acute distress Orientation/consciousness: oriented to person Neck: Neck: Yes supple Resp: Effort & Inspection: normal respiratory effort Auscultation: clear to auscultation bilaterally and no rhonchi Cardio: Jugular venous distension: no JVD Palpation: no palpable S3 Heart sounds: no rubs GI: Palpation (GI): Soft to palpation Auscultation: normal bowel sounds Skin: General skin exam: no jaundice Neuro: General: oriented to person Motor exam (neuro): no asterixis Objective Data Labs CBC & Chem 7: 03/06/21 06:24 03/10/21 08:10 Labs: Laboratory Results - last 24 hr 03/09/21 03/09/21 03/09/21 11:05 16:33 20:30 Sodium Potassium Chloride Carbon Dioxide Anion Gap BUN Creatinine Estim Creat Clear Calc Estimated GFR POC Glucose 171 H 215 H 238 H Random Glucose Calcium 03/10/21 03/10/21 07:10 08:10 Sodium 131 L Potassium 4.4 D Chloride 97 Carbon Dioxide 23 Anion Gap 15 BUN 44 H D Creatinine 7.18 H* Estim Creat Clear Calc 8.5 Estimated GFR 6 POC Glucose 225 H Random Glucose 212 H Calcium 8.7 D Procedures Date of Service Date of Service: 03/10/21 Assessment & Plan Assessment and plan (1) VANDANA (acute kidney injury): Status: Acute Assessment and Plan: 1) Acute kidney injury superimposed on chronic kidney disease: ? VANDANA: rapid loss of renal func over the past 3 months Scr 3.0 to now 9 without obvious explanation--most c/w prog CKD and now ESRD Rapid loss of renal function over the past 9 months is very concerning Scr 1.4 ( 05/2020) Scr 3.0 ( 10/2020) Kidney Bx 10/2020: limited sample and significant glomerulosclerosis and no tissue for? IF and EM not suggestive of Im-Cx mediated GN;prior sero unrevealing;? CT show mild hydro ? signif as was apparently present in 2015 as well but not evident on U/S 02/2021 Scr 9.0 First HD Tx 03/03 REC: HD TTS ; repeat kidney Bx done on 03/04/21; will arrange outpt HD spot ( [place] [facility]): Her insurance does not cover outpatient dialysis for VANDANA. They would only cover ESRD. She is NOT deemed ESRD yet Await pathology report from [facility]. No report yet as of 9:30 AM If no clear reversible causes on biopsy, I would deem as ESRD Time Spent With Patient Time: Total time spent is greater than 50% in coordination of care (as dockev chrised) at patient's floor/unit and/or counseling patient: Progress Note: Quality Stroke Does the patient have a stroke diagnosis?: No
[2021-03-10] MEDS: Sennosides/Docusate Sodium TABLET 2 TAB PO (10:06)
--- NOTE | 2021-03-10 10:45 | HO.PM.IMPN ---
Subjective Subjective Date of Service: 03/10/21 Interval History: Seen in f/u for renal failure now requirring ,dialysis, note more swelling in feet but no sob Review of Systems no fever, no sob Physical Exam Vital Signs: Vital Signs: Last Vital Signs Temp 98.7 F 03/10/21 07:09 Pulse 65 03/10/21 09:19 Resp 18 03/10/21 07:09 BP 134/67 03/10/21 09:19 Pulse Ox 97 03/10/21 07:09 Body Mass Index 41.6 General: AO X 3, no acute distress Resp: CTA bilateral CVS: S1,S2,RRR, 2+pitting tory aof both legs GI: +BS, NT, no distention Skin: No rash Neuro: motor grossly intact Psych: appropriate affect Objective Data Active Medications Acetaminophen (Acetaminophen 325 Mg Tablet) 650 mg PO Q6H PRN PRN Reason: Pain, Mild (Pain Scale 1-3) Last Admin: 03/08/21 20:26 Dose: 650 mg Documented by: SHOAIB Albuterol Sulfate (Albuterol Sulfate 90 Mcg 8 Gm Inhaler) 2 puff INHALE RQ4H PRN PRN Reason: shortness of breath/wheeze Amlodipine Besylate (Amlodipine Besylate 10 Mg Tablet) 10 mg PO BEDTIME [facility]; Protocol Last Admin: 03/09/21 22:31 Dose: 10 mg Documented by: ALBINA Buprenorphine/Naloxone (Buprenorphine/Naloxone 8/2 Mg Film) 1 film SUBLINGUAL BID [facility] Last Admin: 03/10/21 09:22 Dose: 1 film Documented by: JULIA Clonidine HCl (Clonidine Hcl 0.2 Mg Tablet) 0.2 mg PO BID [facility]; Protocol Last Admin: 03/10/21 09:19 Dose: 0.2 mg Documented by: JULIA Dextrose (Dextrose 50 % 25 Gm/50 Ml Vial) 25 gm IVPUSH Q15M PRN; Protocol PRN Reason: per Hypoglycemia Standing Ord. Dextrose (Dextrose 50 % 25 Gm/50 Ml Vial) 25 gm IVPUSH Q15M PRN; Protocol PRN Reason: per Hypoglycemia Standing Ord. Diltiazem HCl (Diltiazem Hcl Cd 300 Mg Cap.Er.24h) 300 mg PO DAILY [facility]; Protocol Last Admin: 03/10/21 09:19 Dose: 300 mg Documented by: JULIA Docusate Sodium (Docusate Sodium 100 Mg Capsule) 100 mg PO DAILY PRN PRN Reason: Constipation Last Admin: 03/06/21 09:10 Dose: 100 mg Documented by: JESSICA Escitalopram Oxalate (Escitalopram Oxalate 5 Mg Tablet) 5 mg PO DAILY [facility] Last Admin: 03/10/21 09:18 Dose: 5 mg Documented by: JULIA Glucose (Glucose Gel 15 Gm Gel..Gram.) 15 gm PO Q15M PRN; Protocol PRN Reason: per Hypoglycemia Standing Ord. Glucose (Glucose Gel 15 Gm Gel..Gram.) 15 gm PO Q15M PRN; Protocol PRN Reason: per Hypoglycemia Standing Ord. Hydralazine HCl (Hydralazine Hcl 50 Mg Tablet) 100 mg PO TID [facility]; Protocol Last Admin: 03/10/21 09:16 Dose: 100 mg Documented by: JULIA Insulin Glargine (Insulin Glargine,Hum.Rec.Anlog 100 Unit/Ml 10 Ml Vial) 14 unit SUBCUT DAILY [facility] Last Admin: 03/10/21 09:13 Dose: 14 unit Documented by: JULIA Insulin Human Lispro (Insulin Lispro 100 Unit/Ml 3 Ml Vial) 0.1 - 10 unit SUBCUT QIDACHS [facility]; Protocol Last Admin: 03/10/21 09:12 Dose: 4 unit Documented by: JULIA Lactulose (Lactulose 20 Gm/30 Ml Solution) 20 gm PO DAILY [facility] Last Admin: 03/10/21 09:22 Dose: 20 gm Documented by: JULIA Melatonin (Melatonin 3 Mg Tablet) 6 mg PO BEDTIME PRN PRN Reason: Insomnia Last Admin: 03/08/21 20:27 Dose: 6 mg Documented by: SHOAIB Mirtazapine (Mirtazapine 15 Mg Tablet) 15 mg PO BEDTIME [facility] Last Admin: 03/09/21 22:31 Dose: 15 mg Documented by: ALBINA Multivitamins/Vitamin C (Multivitamin Tablet) 1 tab PO DAILY [facility] Last Admin: 03/10/21 09:19 Dose: 1 tab Documented by: JULIA Nicotine (Nicotine 21 Mg Patch.Td24) 21 mg TRANSDERMA DAILY [facility] Last Admin: 03/10/21 09:23 Dose: 21 mg Documented by: JULIA Olanzapine (Olanzapine 10 Mg Tablet) 10 mg PO BEDTIME [facility] Last Admin: 03/09/21 22:31 Dose: 10 mg Documented by: ALBINA Ondansetron HCl (Ondansetron Hcl 4 Mg/2 Ml Vial) 4 mg IVPUSH Q8H PRN PRN Reason: Nausea and Vomiting Last Admin: 03/06/21 09:07 Dose: 4 mg Documented by: JESSICA Pharmacy Consult (Consult Rx Perform Med Rec) 1 each MISCELLANE ONCE PRN PRN Reason: Consult order Polyethylene Glycol (Polyethylene Glycol 3350 17 Gm Powd.Pack) 17 gm PO DAILY [facility] Last Admin: 03/10/21 09:20 Dose: 17 gm Documented by: JULIA Senna/Docusate Sodium (Sennosides/Docusate Sodium Tablet) 2 tab PO BID [facility] Last Admin: 03/10/21 10:06 Dose: 2 tab Documented by: DIEUDONNE Tiotropium [place] (Tiotropium [place] 18 Mcg Cap.W.Dev) 1 puff INHALE DAILY [facility] Last Admin: 03/10/21 07:20 Dose: 1 puff Documented by: CLARISSA Trazodone HCl (Trazodone Hcl 100 Mg Tablet) 100 - 200 mg PO BEDTIME [facility] Last Admin: 03/09/21 22:30 Dose: 100 mg Documented by: ALBINA Labs CBC & Chem 7: 03/06/21 06:24 03/10/21 08:10 Labs: Laboratory Results - last 24 hr 03/09/21 03/09/21 03/09/21 11:05 16:33 20:30 Anion Gap Estim Creat Clear Calc Estimated GFR POC Glucose 171 H 215 H 238 H Random Glucose Calcium 03/10/21 03/10/21 07:10 08:10 Anion Gap 15 Estim Creat Clear Calc 8.5 Estimated GFR 6 POC Glucose 225 H Random Glucose 212 H Calcium 8.7 D Assessment and Plan (1) Normocytic anemia: Status: Acute (2) Acute kidney injury superimposed on chronic kidney disease: Status: Acute (3) HTN (hypertension): Status: Acute Assessment and Plan: Hospital d#14 65yo F with DM2, HTN presenting with abd pain and found to have VANDANA/CKD # VANDANA/CKD4 and possibly progression to ESRD -Permacath placed 03/02, induction HD 03/03-03/05. prior renal biopsy at [facility] inconclusive due to limited sample, repeat renal biopsy done 03/04/21 and pending. given rapidity of decline may not be ESRD but Dr López will review pathology and if fibrosis, likely ESRD. no obstruction on renal US. HBV immune from prior infection and HBV DNA negative; HCV Ab equivocal and HCV RNA pending. serum FLCR is abnormally elevated; previous NEGRO negative. # anemia of CKD - weekly epo as per Nephrology - transfused 1 unit 03/04 and 1 unit 03/05 # chronic HFpEF - fluid overload due to VANDANA- got IV furosemide then was dialyzed - recent TTE 11/08 showed LVEF 65-70%, no RWMA, abnormal diastolic function # atypical chest pain - resolved, Tn-I indeterminate/flat, no EKG changes of ischemia # HTN, now controlled - continue amlodipine, diltiazem, hydralazine; will increase clonidine dose 0.1->0.2 mg bid # COPD - continue LAMA, prn ALEYDA # DM2 - basal/bolus insulin # constipation - senna/docusate + lactulose # tobacco abuse - NRT # opioid use disorder - continue Suboxone # mood disorder - continue trazodone, mirtapazine, olanazpine # morbid obesity - t/c outpt bariatrics referral # VTE ppx - UFH # dispo - on hold as insurance does not pay for outpt HD for VANDANA but at this point pt is HD-dependent Quality Stroke Does the patient have a stroke diagnosis?: No VTE Prior VTE?: No VTE Risk Level:: Medical - moderate - high VTE Device Contraindication: Treatment Not Indicated VTE Drug Contraindication: N/A - Med Ordered
[2021-03-10] MEDS: Acetaminophen 325 MG TABLET 650 MG PO (12:56)
--- NOTE | 2021-03-10 14:54 | MHC.CM.PN ---
AMARJIT SPOKE WITH SANTI ZULUAGA LALO [phone] SEVERAL TIMES THROUGHOUT THE DAY. LALO REQUESTED ADDITIONAL LABS BE COMPLETED PRIOR TO ACCEPTANCE. SHE ALSO REPORTS, THEY ONLY DO HD ON [id number], SO SHE WOULD ASK THAT THE PT RECEIVE A SHORT SESSION TOMORROW PRIOR TO DC. LALO REPORTS SHE EXPECTS TO OFFER A BED FOR TOMORROW HOWEVER SHE WILL CALL BACK TO CONFIRM.
[2021-03-10 16:09] LABS: Glucose, Whole Blood 287 mg/dL (60-115)
[2021-03-10 20:27] LABS: Glucose, Whole Blood 148 mg/dL (60-115)
[2021-03-10] MEDS: traZODone HCL 100 MG TABLET PO (20:34)
[2021-03-10] MEDS: OLANZapine 10 MG TABLET PO (20:34)
[2021-03-10] MEDS: amLODIPine Besylate 10 MG TABLET PO (20:34)
[2021-03-10] MEDS: Mirtazapine 15 MG TABLET PO (20:35)
[2021-03-11] VITALS (8 sets, daily range): BP systolic 113–171; BP diastolic 58–79; PULSE 62–72; RESP 18; TEMP 36.5–37.2; O2SAT 97–100; BMI 41.8
[2021-03-11 07:49] LABS: Glucose, Whole Blood 134 mg/dL (60-115)
[2021-03-11] MEDS: Multivitamin TABLET 1 TAB PO (08:00)
[2021-03-11] MEDS: cloNIDine HCL 0.2 MG TABLET PO (08:00)
[2021-03-11] MEDS: Nicotine 21 MG PATCH.TD24 TRANSDERMA (08:01)
[2021-03-11] MEDS: Buprenorphine/Naloxone 8/2 mg FILM 1 FILM SUBLINGUAL (08:01)
[2021-03-11] MEDS: Escitalopram Oxalate 5 MG TABLET PO (08:01)
[2021-03-11] MEDS: dilTIAZem HCL CD 300 MG CAP.ER.24H PO (08:01)
[2021-03-11] MEDS: hydrALAZINE HCl 50 MG TABLET 100 MG PO ×2 (08:01→16:12)
[2021-03-11] MEDS: Insulin Glargine,Hum.rec.anlog 100 UNIT/ML 10 ML VIAL 14 UNIT SUBCUT (08:02)
--- NOTE | 2021-03-11 09:44 | P.PNNP_ITS ---
Subjective Subjective Date of Service: 03/28/21 Principal diagnosis: renal failure Interval history: Events noted Physical Exam Vital Signs: Vital Signs: Last Vital Signs Temp 98.9 F 03/11/21 07:23 Pulse 70 03/11/21 08:01 Resp 18 03/11/21 07:23 BP 171/79 H 03/11/21 08:01 Pulse Ox 100 03/11/21 07:56 Body Mass Index 41.8 Const: General: no acute distress Orientation/consciousness: oriented to person Neck: Neck: Yes supple Resp: Effort & Inspection: normal respiratory effort Auscultation: clear to auscultation bilaterally and no rhonchi Cardio: Jugular venous distension: no JVD Palpation: no palpable S3 Heart sounds: no rubs GI: Palpation (GI): Soft to palpation Auscultation: normal bowel sounds Skin: General skin exam: no jaundice Neuro: General: oriented to person Motor exam (neuro): no asterixis Objective Data Labs CBC & Chem 7: 03/06/21 06:24 03/10/21 08:10 Labs: Laboratory Results - last 24 hr 03/10/21 03/10/21 03/11/21 16:05 20:20 07:21 POC Glucose 287 H 148 H 134 H Procedures Date of Service Date of Service: 03/11/21 Assessment & Plan Assessment and plan (1) VANDANA (acute kidney injury): Assessment and Plan: 1) Acute kidney injury superimposed on chronic kidney disease: ? VANDANA: rapid loss of renal func over the past 3 months Scr 3.0 to now 9 without obvious explanation--most c/w prog CKD and now ESRD Rapid loss of renal function over the past 9 months is very concerning Scr 1.4 ( 05/2020) Scr 3.0 ( 10/2020) Kidney Bx 10/2020: limited sample and significant glomerulosclerosis and no tissue for? IF and EM not suggestive of Im-Cx mediated GN;prior sero unrevealing;? CT show mild hydro ? signif as was apparently present in 2016 as well but not evident on U/S 02/2021 Scr 9.0 First HD Tx 03/03 REC: HD TTS ; repeat kidney Bx done on 03/04/21; outpt HD spot ( [facility]): Her insurance does not cover outpatient dialysis for VANDANA. They would only cover ESRD. She is NOT deemed ESRD yet Discussed with Path- Prelim suggestive of MPGN/TMA - full report is not ready yet- If no clear reversible causes on biopsy, I would deem as ESRD Time Spent With Patient Time: Total time spent is greater than 50% in coordination of care (as doc umented) at patient's floor/unit and/or counseling patient: Time with patient: 15 - 24 minutes Progress Note: Quality Stroke Does the patient have a stroke diagnosis?: No
--- NOTE | 2021-03-11 09:59 | P.PNIM_ITS ---
Subjective Subjective Date of Service: 03/11/21 Interval History: Seen in f/u for renal failure now requirring , no sob, no confusion, Review of Systems no fever, no sob Physical Exam Vital Signs: Vital Signs: Last Vital Signs Temp 98.9 F 03/11/21 07:23 Pulse 70 03/11/21 08:01 Resp 18 03/11/21 07:23 BP 171/79 H 03/11/21 08:01 Pulse Ox 100 03/11/21 07:56 Body Mass Index 41.8 General: AO X 3, no acute distress Resp: CTA bilateral CVS: S1,S2,RRR, 3+ GI: +BS, NT, no distention Skin: No rash Neuro: motor grossly intact Psych: appropriate affect Objective Data Active Medications Acetaminophen (Acetaminophen 325 Mg Tablet) 650 mg PO Q6H PRN PRN Reason: Pain, Mild (Pain Scale 1-3) Last Admin: 03/10/21 12:56 Dose: 650 mg Documented by: DIEUDONNE Albuterol Sulfate (Albuterol Sulfate 90 Mcg 8 Gm Inhaler) 2 puff INHALE RQ4H PRN PRN Reason: shortness of breath/wheeze Amlodipine Besylate (Amlodipine Besylate 10 Mg Tablet) 10 mg PO BEDTIME [facility]; Protocol Last Admin: 03/10/21 20:34 Dose: 10 mg Documented by: MARILYNN Buprenorphine/Naloxone (Buprenorphine/Naloxone 8/2 Mg Film) 1 film SUBLINGUAL BID [facility] Last Admin: 03/11/21 08:01 Dose: 1 film Documented by: NANI Clonidine HCl (Clonidine Hcl 0.2 Mg Tablet) 0.2 mg PO BID [facility]; Protocol Last Admin: 03/11/21 08:00 Dose: 0.2 mg Documented by: NANI Dextrose (Dextrose 50 % 25 Gm/50 Ml Vial) 25 gm IVPUSH Q15M PRN; Protocol PRN Reason: per Hypoglycemia Standing Ord. Dextrose (Dextrose 50 % 25 Gm/50 Ml Vial) 25 gm IVPUSH Q15M PRN; Protocol PRN Reason: per Hypoglycemia Standing Ord. Diltiazem HCl (Diltiazem Hcl Cd 300 Mg Cap.Er.24h) 300 mg PO DAILY [facility]; Protocol Last Admin: 03/11/21 08:01 Dose: 300 mg Documented by: NANI Docusate Sodium (Docusate Sodium 100 Mg Capsule) 100 mg PO DAILY PRN PRN Reason: Constipation Last Admin: 03/06/21 09:10 Dose: 100 mg Documented by: JESSICA Escitalopram Oxalate (Escitalopram Oxalate 5 Mg Tablet) 5 mg PO DAILY [facility] Last Admin: 03/11/21 08:01 Dose: 5 mg Documented by: NANI Glucose (Glucose Gel 15 Gm Gel..Gram.) 15 gm PO Q15M PRN; Protocol PRN Reason: per Hypoglycemia Standing Ord. Glucose (Glucose Gel 15 Gm Gel..Gram.) 15 gm PO Q15M PRN; Protocol PRN Reason: per Hypoglycemia Standing Ord. Hydralazine HCl (Hydralazine Hcl 50 Mg Tablet) 100 mg PO TID [facility]; Protocol Last Admin: 03/11/21 08:01 Dose: 100 mg Documented by: NANI Insulin Glargine (Insulin Glargine,Hum.Rec.Anlog 100 Unit/Ml 10 Ml Vial) 14 unit SUBCUT DAILY [facility] Last Admin: 03/11/21 08:02 Dose: 14 unit Documented by: NANI Insulin Human Lispro (Insulin Lispro 100 Unit/Ml 3 Ml Vial) 0.1 - 10 unit SUBCUT QIDACHS [facility]; Protocol Last Admin: 03/11/21 07:49 Dose: Not Given Documented by: NANI Non-Admin Reason: No Insulin Coverage Lactulose (Lactulose 20 Gm/30 Ml Solution) 20 gm PO DAILY [facility] Last Admin: 03/11/21 07:50 Dose: Not Given Documented by: NANI Non-Admin Reason: held loose stools Melatonin (Melatonin 3 Mg Tablet) 6 mg PO BEDTIME PRN PRN Reason: Insomnia Last Admin: 03/08/21 20:27 Dose: 6 mg Documented by: SHOAIB Mirtazapine (Mirtazapine 15 Mg Tablet) 15 mg PO BEDTIME [facility] Last Admin: 03/10/21 20:35 Dose: 15 mg Documented by: ANTOIC Multivitamins/Vitamin C (Multivitamin Tablet) 1 tab PO DAILY [facility] Last Admin: 03/11/21 08:00 Dose: 1 tab Documented by: NANI Nicotine (Nicotine 21 Mg Patch.Td24) 21 mg TRANSDERMA DAILY [facility] Last Admin: 03/11/21 08:01 Dose: 21 mg Documented by: NANI Olanzapine (Olanzapine 10 Mg Tablet) 10 mg PO BEDTIME [facility] Last Admin: 03/10/21 20:34 Dose: 10 mg Documented by: MARILYNN Ondansetron HCl (Ondansetron Hcl 4 Mg/2 Ml Vial) 4 mg IVPUSH Q8H PRN PRN Reason: Nausea and Vomiting Last Admin: 03/06/21 09:07 Dose: 4 mg Documented by: JESSICA Pharmacy Consult (Consult Rx Perform Med Rec) 1 each MISCELLANE ONCE PRN PRN Reason: Consult order Polyethylene Glycol (Polyethylene Glycol 3350 17 Gm Powd.Pack) 17 gm PO DAILY [facility] Last Admin: 03/11/21 07:50 Dose: Not Given Documented by: NANI Non-Admin Reason: held loose stools Senna/Docusate Sodium (Sennosides/Docusate Sodium Tablet) 2 tab PO BID [facility] Last Admin: 03/11/21 07:50 Dose: Not Given Documented by: NANI Non-Admin Reason: held loose stools Tiotropium [place] (Tiotropium [place] 18 Mcg Cap.W.Dev) 1 puff INHALE DAILY [facility] Last Admin: 03/11/21 07:42 Dose: 1 puff Documented by: BRESNE Trazodone HCl (Trazodone Hcl 100 Mg Tablet) 100 - 200 mg PO BEDTIME [facility] Last Admin: 03/10/21 20:34 Dose: 100 mg Documented by: MARILYNN Labs CBC & Chem 7: 03/06/21 06:24 03/10/21 08:10 Labs: Laboratory Results - last 24 hr 03/10/21 03/10/21 03/11/21 16:05 20:20 07:21 POC Glucose 287 H 148 H 134 H Assessment and Plan (1) Normocytic anemia: Status: Acute (2) Acute kidney injury superimposed on chronic kidney disease: Status: Acute (3) HTN (hypertension): Status: Acute Assessment and Plan: Hospital d#15 65yo F with DM2, HTN presenting with abd pain and found to have VANDANA/CKD # VANDANA/CKD4 and possibly progression to ESRD -Permacath placed 03/02, induction HD 03/03-03/05. prior renal biopsy at [facility] inconclusive due to limited sample, repeat renal biopsy done 03/04/21 and pending. given rapidity of decline may not be ESRD but Dr López will review pathology and if fibrosis, likely ESRD. no obstruction on renal US. HBV immune from prior infection and HBV DNA negative; HCV Ab equivocal and HCV RNA pending. serum FLCR is abnormally elevated; previous NEGRO negative. FINAL Bx result still pending # anemia of CKD - weekly epo as per Nephrology - transfused 1 unit 03/04 and 1 unit 03/05 # chronic HFpEF - fluid overload due to VANDANA- got IV furosemide then was dialyzed - recent TTE 11/08 showed LVEF 65-70%, no RWMA, abnormal diastolic function # atypical chest pain - resolved, Tn-I indeterminate/flat, no EKG changes of ischemia # HTN, now controlled - continue amlodipine, diltiazem, hydralazine; will increase clonidine dose 0.1- >0.2 mg bid # COPD - continue LAMA, prn ALEYDA # DM2 - basal/bolus insulin # constipation - senna/docusate + lactulose # tobacco abuse - NRT # opioid use disorder - continue Suboxone # mood disorder - continue trazodone, mirtapazine, olanazpine # morbid obesity - t/c outpt bariatrics referral # VTE ppx - UFH # dispo - on hold as insurance does not pay for outpt HD for VANDANA but at this point pt is HD-dependent Quality Stroke Does the patient have a stroke diagnosis?: No VTE Prior VTE?: No VTE Risk Level:: Medical - moderate - high VTE Device Contraindication: Treatment Not Indicated VTE Drug Contraindication: N/A - Med Ordered
[2021-03-11 12:01] LABS: Glucose, Whole Blood 183 mg/dL (60-115)
[2021-03-11] MEDS: Insulin Lispro 100 UNIT/ML 3 ML VIAL SUBCUT (12:43)
--- NOTE | 2021-03-11 13:01 | PM.DS ---
DS: Providers Provider Date of Service: 03/11/21 Date of admission: 02/25/21 23:33 Primary care physician: Sammy Vicente MD Consults: 02/26/21 03:29 Consult to Nephrology Routine Consulting Provider: [facility] Reason for consultation: VANDANA on CKD, Cr 9 ( bl 3) Has provider been notified: No 02/26/21 09:09 Consult to General Surgery Routine Consulting Provider: [facility] General Surgeons Reason for consultation: abdominal pain with marked distention 03/01/21 14:51 Consult to Urology Routine Consulting Provider: Rik Nam Reason for consultation: esrd r/o any possible cause of obstruction Has provider been notified: No 03/08/21 10:12 Consult to Hematology / Oncology Routine Consulting Provider: [facility] Oncology/Hematology Reason for consultation: VANDANA/CKD now HD, abnl sFLCR, bx pending DS: Diagnosis Discharge Diagnosis (1) Normocytic anemia: Status: Acute (2) Acute kidney injury superimposed on chronic kidney disease: Status: Acute (3) HTN (hypertension): Status: Acute DS: Summary Hospital Course Hospital Course: from admission H+P by hospitalist Robert Torres, 02/25/21: This is a 65-year-old female past medical history of diabetes, hypertension, chronic constipation, CHF, CKD who presents to the hospital with complaints of abdominal pain.? Patient reports that she has not moved her bowels for the past 6 days, developed abdominal pain for the past 3-4 days, denies any nausea or vomiting, pain is 10/10, improved to 6/10 on arrival to the ED.? Feels pressure, nonradiating, constant, relieved by the pain medication received in the ED no exacerbating factors. Denies any headache or change in vision, no shortness of breath, no cough, no urinary symptoms.? Reports chronic lower extremity edema that has not worsened.? Denies any numbness tingling or weakness. On arrival to the ED patient hemodynamically stable with no significant abnormal vitals except for a slightly elevated blood pressure For WBC count of 11.3, hemoglobin 8.8 which is lower than her usual of 11.4 in October2020 , hematocrit of 26.5, in BUN of 74, creatinine of 9.85 with a baseline around 3.0, alk-phos of 156, troponin of 57 with no chest pain.? UA that is positive for protein, glucose, negative for leukocyte Estrace or nitrites.? COVID-[address] pelvic abdomen shows no active inflammatory bowel changes or bowel obstruction, there is a tiny 100 dense focus in the pancreatic head which could be related with volume of bridging.? A dilated side branch or an underlying lesion is difficult to exclude.? Mild asymmetric hydronephrosis similar to 2016 and could be related to peristalsis.? No obstructive calculi or lesion is identified Given the significant elevation of creatinine patient will be admitted for further management Hospital course: This 65yo woman with type 2 DM and HTN presented with abdominal pain ultimately attributed to constipation. Her renal function worsened to the point where she required initiation of hemodialysis for hypervolemia. Perma-cath was placed 03/02 and she underwent induction HD 03/03-03/05/21. A prior renal biopsy at [facility] was inconclusive due to limited sample, so a repeat biopsy was done on 03/04/21; pathology is pending at the time of discharge. She is HBV-immune from prior infection and HCV antibody was equivocal; HCV viral load is pending at the time of discharge. Serum free light chain ratio was elevated at 2.73; ____. There was no obstructive nephropathy on renal US. She was started on erythropoeitin and transfused 2 units of packed red blood cells for anemia of CKD. For better control of blood pressure, amlodipine and hydralazine doses were increased. She was discharged home with VNA services and outpatient HD placement. She had full dialysis on 03/10/21 and additional 2 hours of dialysis today 03/11/21. Her biological technician is Dr. López Time Spent with Patient Time attestation: Total time spent providing and/or coordinating discharge services: Discharge coordination time: Greater than 30 minutes Quality: Stroke Does the patient have a stroke diagnosis?: No Physical Exam Vital Signs: Vital Signs: Last Vital Signs Temp 97.7 F 03/11/21 11:55 Pulse 62 03/11/21 11:55 Resp 18 03/11/21 11:55 BP 126/58 L 03/11/21 11:55 Pulse Ox 97 03/11/21 11:55 Body Mass Index 41.8 DS: Data Data Completed and Pending Completed studies during hospitalization [Text1]: Pending at discharge 03/04/21 11:35 Surgical [PTH] Routine Procedures Excision of Right Kidney, Percutaneous Approach, Diagnostic (10/22/20) Labs on day of discharge: Laboratory Results - last 24 hr 03/10/21 03/10/21 03/11/21 16:05 20:20 07:21 POC Glucose 287 H 148 H 134 H 03/11/21 11:55 POC Glucose 183 H Discharge Plan Discharge Anticipated Discharge Date/Time: 03/11/21 13:00 Patient Disposition: Home Health Service Discharge Diagnosis: VANDANA/CKD, uncontrolled HTN, tobacco abuse, constipation Referrals: [facility] [Outside] - 1 Week Sammy Vicente MD [Primary Care Provider] - 03/15/21 2:30 pm (You have a follow up appointment by phone on March 15 at 2:30 pm. JOHN Martinez will call you at the time of your appointment.) Clive Lange MD [Physician] - 1 Week Discharge Medications: New amlodipine 10 mg Tablet 10 mg PO BEDTIME Qty: 30 RF: 0 nicotine 21 mg/24 hr Patch 24 Hour 21 mg transdermal DAILY Qty: 30 RF: 0 hydralazine 100 mg tablet 100 mg PO TID Qty: 90 RF: 0 polyethylene glycol 3350 17 gram Powder In Packet 17 g PO DAILY PRN (Reason: constipation) Qty: 30 RF: 0 Lantus U-100 Insulin 100 unit/mL Solution 18 unit subcut DAILY Qty: 3 RF: 0 Continued trazodone 100 mg tablet 1 - 2 tab PO BEDTIME RF: 0 docusate sodium 100 mg capsule 1 - 2 cap PO BEDTIME PRN (Reason: constipation) RF: 0 mirtazapine 15 mg tablet 15 mg PO BEDTIME RF: 0 diclofenac sodium 1 % gel 2 g topical QID RF: 0 buprenorphine-naloxone [Suboxone] 8-2 mg film 1 strip sublingual BID RF: 0 multivitamin [One Daily Multivitamin] Tablet 1 tab PO QAM RF: 0 clonidine HCl 0.1 mg tablet 0.1 mg PO BID RF: 0 diltiazem HCl 180 mg capsule,extended release 24hr 180 mg PO QAM RF: 0 aspirin 81 mg tablet,delayed release (DR/EC) 81 mg PO QAM RF: 0 insulin lispro [Humalog KwikPen Insulin] 100 unit/mL insulin pen 4 - 12 unit subcut TIDAC RF: 0 escitalopram oxalate 5 mg tablet 5 mg PO QAM RF: 0 Spiriva with HandiHaler 18 mcg capsule, w/inhalation device 1 cap inhalation DAILY RF: 0 Lantus Solostar U-100 Insulin 100 unit/mL (3 mL) insulin pen 24 unit subcut DAILY RF: 0 olanzapine 10 mg tablet 1 tab PO BEDTIME RF: 0 albuterol sulfate 2.5 mg /3 mL (0.083 %) solution for nebulization 1 amp inhalation TID PRN (Reason: Wheezing) RF: 0 Discontinued furosemide [Lasix] 40 mg tablet 40 mg PO DAILY Qty: 20 RF: 0 hydralazine 25 mg tablet 25 mg PO TID RF: 0 amlodipine 5 mg tablet 5 mg PO BEDTIME RF: 0 Discharge Orders: Discharge Order (Routine); Ordered 03/04/21 Ordered By: Orlando Dozier Diet: diabetic diet, low salt diet and other Activity on Discharge: As tolerated Stand Alone Forms: Patient Portal Discharge page Care Plan Goals: kidney health BP control avoid consequences of tobacco abuse avoid constipation Health Concerns: acute on chronic kidney disease, now on HD hypertension tobacco abuse constipation Plan of Treatment: dialysis 3x a week; stop furosemide; low-potassium diet increase amlodipine to 10 mg/d; increase hydralazine to 100 mg 3x a day; stop furosemide nicotine patch high-fiber diet; use docusate + MiraLax as needed decrease Lantus to 18 units see your primary care doctor in 1 week Assessment: see Discharge Summary Patient Instructions: How to Stop Smoking (DC), Dialysis Diet (DC), Hemodialysis (DC)
[2021-03-11 14:04] LABS: COVID-19 Test Negative (Negative)
== END 2021-03-11 18:50 | disposition home health service (06) | DRG 194 ==
LOC: HO.ED 23:31 → HO.EDOVER 23:51 → HO.IMC 02-26 04:24
PROVIDERS: Family Medicine; Hospitalist; Internal Medicine Nephrology; Radiology Diagnostic Radiology; Admitting Provider Internal Medicine; Emergency Provider Emergency Medicine; PCP Internal Medicine; Visit Provider Internal Medicine
PROC: 0TB13ZX Excision of Left Kidney, Percutaneous Approach, Diagnostic (ICD-10-PCS; principal; 2021-03-04 10:30)
DX: I13.0 Hypertensive heart and chronic kidney disease with heart failure and stage 1 through stage 4 chronic kidney disease, or unspecified chronic kidney disease (principal); N17.0 Acute kidney failure with tubular necrosis; E11.22 Type 2 diabetes mellitus with diabetic chronic kidney disease; F11.20 Opioid dependence, uncomplicated; E66.01 Morbid (severe) obesity due to excess calories; E87.1 Hypo-osmolality and hyponatremia; I50.32 Chronic diastolic (congestive) heart failure; Z68.41 Body mass index [BMI] 40.0-44.9, adult; F17.210 Nicotine dependence, cigarettes, uncomplicated; Z23 Encounter for immunization; K59.09 Other constipation; R07.89 Other chest pain; J44.9 Chronic obstructive pulmonary disease, unspecified; N18.4 Chronic kidney disease, stage 4 (severe); D63.1 Anemia in chronic kidney disease; Z20.822 Contact with and (suspected) exposure to COVID-19; Z71.6 Tobacco abuse counseling; Z79.4 Long term (current) use of insulin; Z79.82 Long term (current) use of aspirin; Z79.899 Other long term (current) drug therapy
CPT/HCPCS: 36415; 36558; 50200; 74176; 76775; 77012; 80048; 80076; 81001; 81003; 82009; 82272; 82728; 82947; 83520; 83540; 83605; 83690; 83735; 83970; 84156; 84300; 84484; 85014; 85018; 85025; 85027; 85610; 85730; 86021; 86038; 86039; 86704; 86706; 86803; 86850; 86900; 86901; 86923; 87340; 87517; 87522; 87635; 88300; 88305; 88313; 88346; 88348; 88350; 90686; 90999; 93005; 93975; 96361; 96374; 97110; 97116; 97162; 99152; 99153; 99285; C1750; C1769; J0885; J1940; J2060; J2405; J2597; P9016

== ENCOUNTER 2021-04-15 11:50 | Inpatient (IN) | payer MEDICARE, MEDICAID, SELFPAY ==
[2021-04-15] VITALS (9 sets, daily range): BP systolic 155–212; BP diastolic 69–100; PULSE 102–118; RESP 16–29; TEMP 36.6–37; O2SAT 91–100; BMI 37.5
--- NOTE | ~2021-04-15 | US_ITS ---
EXAMINATION: US VENOUS ULTRASOUND WITH DOPPLER LOWER EXTREMITY, BILATERAL CLINICAL INFORMATION: Bilateral lower extremity pain and swelling. Assess for occult DVT. COMPARISON: Left lower extremity venous ultrasound with Doppler 06/04/2020 TECHNIQUE: Ultrasound of the deep veins is performed from the hip to the calf with compression sonography and color and pulse Doppler assessment. Spectral analysis with color-flow imaging is performed. Technically challenging study due to patient motion. Bilateral peroneal vein is not optimally visualized. FINDINGS: RIGHT: There is normal venous compression and respiratory variation and augmented flow. The visualized common femoral vein, superficial femoral vein, profunda femoral vein, popliteal vein, and the trifurcation region shows no evidence of deep venous thrombosis. No visible popliteal fossa cyst. LEFT: There is normal venous compression and respiratory variation and augmented flow. The visualized common femoral vein, superficial femoral vein, profunda femoral vein, popliteal vein, and the trifurcation region shows no evidence of deep venous thrombosis. No visible popliteal fossa cyst. US/US venous duplex LE BI IMPRESSION: 1. No DVT demonstrated in the bilateral lower extremity. 2. If the patient's symptoms persist, followup ultrasound in 5 days 7 days might be of value to exclude proximal propagation from a non-visualized calf vein.
--- NOTE | ~2021-04-15 | XR_ITS ---
EXAMINATION: XR CHEST CLINICAL INFORMATION: Dyspnea. COMPARISON: Chest 11/02/2020. TECHNIQUE: Frontal view of the chest was obtained. FINDINGS: The lungs are well-expanded with increased vascularity in both lower lungs and parahilar regions suggestive of mild congestion or volume overload. The heart size is borderline normal. The lungs are expanded and clear. There is a right central venous temporal dialysis catheter with its tip in mid SVC. No gross bony abnormality. XR/XR chest 1V IMPRESSION: Suspect mild vascular congestion or volume overload.
--- NOTE | 2021-04-15 11:57 | ECG_ITS ---
Test Reason : DYSPNEA Blood Pressure : / mmHG Vent. Rate : 099 BPM Atrial Rate : 099 BPM P-R Int : 154 ms QRS Dur : 082 ms QT Int : 374 ms P-R-T Axes : 053 007 061 degrees QTc Int : 479 ms Normal sinus rhythm Possible Left atrial enlargement Nonspecific T wave abnormality Lateral leads Abnormal ECG When compared with ECG of 05-MAR-2021 13:44, Heart rate has increased T wave amplitude has increased in Nonspecific T wave abnormality no longer evident in Inferior leads Referred By: Sirena Vallejo Electronically Signed By:CHRISTY AN MD
--- NOTE | 2021-04-15 11:58 | ED_ITS ---
HPI - SOB/Dyspnea General Chief Complaint: Dyspnea Stated Complaint: difficulty breathing/ CPAP Time Seen by Provider: 04/15/21 11:58 Source: patient, EMS, old records reviewed and career based intervention coordinator Mode of arrival: EMS Limitations: other (poor historian) History of Present Illness HPI Narrative: called her HD [facility] they state complete session on 04/13 though she tried to leave early and has hx of noncompliance MD elicited complaint: shortness of breath and asthma attack Pertinent past history: asthma, congestive heart failure and other (ESRD on HD T S) Onset (ago): day(s) (7) Context: medication noncompliance and other (possible HD non compliance) Timing: progressively worsening Severity: moderate Exacerbating factors: lying flat, exertion and coughing Relieving factors: oxygen, bronchodilators and upright position Known history of: asthma and congestive heart failure Associated symptoms: wheezing and other (lower extremity swelling) Treatment prior to arrival: oxygen and NIPPV (CPAP RA sats high 90s) Related Data Home Medications Medication Instructions Recorded Confirmed aspirin 81 mg tablet,delayed 81 mg PO DAILY 10/22/20 04/15/21 release buprenorphine 8 mg-naloxone 2 mg 1 strip SUBLINGUAL BID 10/22/20 04/15/21 sublingual film (Suboxone) clonidine HCl 0.1 mg tablet 0.1 mg PO TID 10/22/20 04/15/21 diclofenac sodium 1 % topical gel 2 g TOPICAL QID 10/22/20 04/15/21 diltiazem HCl 180 mg 180 mg PO DAILY 10/22/20 04/15/21 capsule,extended release 24 hr docusate sodium 100 mg capsule 1 - 2 cap PO BEDTIME PRN 10/22/20 04/15/21 escitalopram oxalate 5 mg tablet 5 mg PO DAILY 10/22/20 04/15/21 insulin lispro 100 unit/mL 4 - 12 unit SUBCUT TIDAC 10/22/20 04/15/21 subcutaneous pen (Humalog KwikPen (U-100) Insulin) mirtazapine 15 mg tablet 15 mg PO BEDTIME 10/22/20 04/15/21 multivitamin (One Daily 1 tab PO DAILY 10/22/20 04/15/21 Multivitamin) tiotropium bromide 18 mcg capsule 1 cap INHALATION DAILY 10/22/20 04/15/21 with inhalation device (Spiriva with HandiHaler) trazodone 100 mg tablet 1 - 2 tab PO BEDTIME 10/22/20 04/15/21 albuterol sulfate 1 amp INHALATION TID PRN 02/25/21 04/15/21 olanzapine 10 mg tablet 1 tab PO BEDTIME 02/25/21 04/15/21 bumetanide 2 mg tablet 2 mg PO DAILY 04/15/21 04/15/21 fluticasone propionate 110 1 puff INHALATION BID 04/15/21 04/15/21 mcg/actuation HFA aerosol inhaler (Flovent HFA) melatonin 5 mg tablet 5 mg PO BEDTIME PRN 04/15/21 04/15/21 pantoprazole 40 mg tablet,delayed 40 mg PO DAILY 04/15/21 04/15/21 release vitamin B comp no.3-folic acid 1 1 tab PO DAILY 04/15/21 04/15/21 mg-vit C 60 mg-biotin 300 mcg tablet ([facility] RECRUITER[facility]) Previous Rx's Medication Instructions Recorded amlodipine 10 mg tablet 10 mg PO BEDTIME #30 tab 03/07/21 hydralazine 100 mg tablet 100 mg PO TID #90 tab 03/07/21 insulin glargine 100 unit/mL 18 unit (0.18 mL) SUBCUT DAILY #3 03/07/21 subcutaneous solution (Lantus ml U-100 Insulin) nicotine 21 mg/24 hr daily 21 mg TRANSDERMAL DAILY #30 ea 03/07/21 transdermal patch polyethylene glycol 3350 17 gram 17 g PO DAILY PRN #30 ea 03/07/21 oral powder packet Allergies Allergy/AdvReac Type Severity Reaction Status Date / Time No Known Allergies Allergy Mild NOT Verified 12/14/20 11:50 APPLICABLE Review of Systems Review of Systems: Constitutional : No Fever, No Chills ENT/Mouth : No sore throat, No Rhinorrhea, No Swallowing Difficulty Eyes: No Eye Pain, No Swelling, No Redness Cardiovascular : No Chest Pain, positive SOB, pos Orthopnea, positive Edema Respiratory : pos Cough, No Sputum, pos Wheezing, positive dyspnea Gastrointestinal : No Nausea, No Vomiting, No Diarrhea, No abdominal Pain, No Hematochezia, No Melena Genitourinary : No Dysuria, No Urinary Frequency, No Hematuria Musculoskeletal : No joint pain, No Myalgias Skin : No Skin Lesions, No rash Neuro : No Weakness, No Numbness, No Dizziness, No Headache Psych : No Anxiety/Panic, No Depression Heme/Lymph: No Bruising, No Lymphadenopathy Endocrine : No Polyuria, No Polydipsia All other systems reviewed and are negative [facility] Past Medical History Attestation statement: The following information was validated with the patient. Source: old records reviewed Medical History Acute kidney injury superimposed on chronic kidney disease VANDANA (acute kidney injury) CHF (congestive heart failure) Constipation Diabetes mellitus Diastolic congestive heart failure Essential hypertension HTN (hypertension) Hypertension Normocytic anemia Surgical History No pertinent past surgical history Family History Family History Other Hypertension Social History Social History Household Members: None Housing: House Do you presently have visiting nurse or other home services: Yes (WEB OPERATIONS ADMINISTRATOR 7days/w [place]) Patient Tobacco Use Status: Current everyday Tobacco user Tobacco use type: Cigarette Cigarette Packs Per Day: 1 Second Hand Smoke Exposure: No Use of substances other than those prescribed or required for medical reasons: No Substance Use Type: Heroin Advance Directives: No Advance Directives Information Provided: No service: No Current occupational status: unemployed and disabled Physical Exam Vital Signs: Vital Signs: Last Vital Signs Temp 98.6 F 04/15/21 15:01 Pulse 113 H 04/15/21 15:01 Resp 18 04/15/21 15:01 BP 187/80 H 04/15/21 15:01 Pulse Ox 91 L 04/15/21 15:01 Body Mass Index 37.5 Appearance: Alert. Oriented X3. No acute distress. Anxious Eyes: Pupils equal, round and reactive to light. ENT: Pharynx normal. Neck: Normal inspection. Neck supple. + JVD CVS: Normal heart rate and rhythm. Pulses normal. Respiratory: No respiratory distress. Breath sounds diffuse wheezes but also rales heard in bases Abdomen: Soft and nontender. Skin: Skin warm and dry. Normal skin color. Normal skin turgor. Extremities: 3+ pitting lower extremity edema. No calf ttp Neuro: Oriented X 3. No motor deficit. No sensory deficit. Course Course Course Narrative: patient likely non compliant with her medications - at this time will admit for dyspnea, asthma, needs HD in the AM I do not think she needs emergent MDM - SOB/Dyspnea MDM Narrative Medical decision making narrative: 66 yo female with hx of CHF, asthma, ESRD on HD T S - last session on 04/13 here with LE edema, wheezing and HTN - nitropast put on neb treatment IV steroids, labs, CXR US to r/o DVT, anticipate admission for HD Lab Data Result diagrams: 04/15/21 13:41 04/15/21 13:41 Labs: Lab Results 04/15/21 04/15/21 04/15/21 Range/Units 12:40 13:41 13:41 WBC 12.1 H (4.8-10.8) X10*3/uL RBC 2.92 L (4.20-5.50) X10*6/uL Hgb 8.3 L (12.0-16.0) g/dl Hct 26.8 L (37.0-47.0) % MCV 91.8 (80.0-98.0) fL MCH 28.4 (27.0-33.0) pg MCHC 31.0 (31.0-35.0) g/dl RDW 17.4 H (11.0-16.0) % Plt Count 259 (160-400) X10*3/uL MPV 9.1 L (9.4-12.3) fL Immature Gran % (Auto) 0.4 (0.0-0.4) % Neut % (Auto) 84.6 H (45-73) % Lymph % (Auto) 9.1 L (20-40) % [place] % (Auto) 4.2 (2-11) % Eos % (Auto) 1.5 (0-4) % Baso % (Auto) 0.2 (0-2) % Lymph # (Auto) 1.1 L (1.2-4.9) X10*3/uL [place] # (Auto) 0.5 (0.1-1.2) X10*3/uL Eos # (Auto) 0.2 (0.0-0.4) X10*3/uL Baso # (Auto) 0.0 (0.0-0.2) X10*3/uL Abs Immat Gran (auto) 0.05 H (0.00-0.03) X10*3/uL Absolute Neuts (auto) 10.3 H (2.0-8.3) x10*3/uL Absolute Nucleated RBC 0.000 (0.0-0.012) X10*3/uL Nucleated RBC % (auto) 0.0 (0.0-0.2) /100WBC Sodium 136 (135-145) mmol/L Potassium 4.6 (3.3-5.1) mmol/L Chloride 99 (96-108) mmol/L Carbon Dioxide 21 L (22-29) mmol/L Anion Gap 21 H (12-20) BUN 30 H (9-16) mg/dL Creatinine 8.05 H* (0.5-1.4) mg/dL Estim Creat Clear Calc 7.1 Estimated GFR 5 Random Glucose 153 H (60-115) mg/dL Calcium 8.3 L (8.4-10.2) mg/dL Magnesium 2.2 (1.6-2.6) mg/dL Total Bilirubin 0.3 (0.0-1.0) mg/dL Direct Bilirubin 0.2 (0.0-0.5) mg/dL AST 26 D (5-31) U/L ALT 17 (0-31) U/L Alkaline Phosphatase 152 H (39-117) U/L Troponin I High Sens (<3.5-17.0) ng/L Total Protein 7.0 (6.5-8.0) g/dL Albumin 3.7 (3.5-5.0) g/dL COVID-19 (KRYSTINA) Negative (Negative) COVID-19 Clin Com See Note 04/15/21 Range/Units 13:41 WBC (4.8-10.8) X10*3/uL RBC (4.20-5.50) X10*6/uL Hgb (12.0-16.0) g/dl Hct (37.0-47.0) % MCV (80.0-98.0) fL MCH (27.0-33.0) pg MCHC (31.0-35.0) g/dl RDW (11.0-16.0) % Plt Count (160-400) X10*3/uL MPV (9.4-12.3) fL Immature Gran % (Auto) (0.0-0.4) % Neut % (Auto) (45-73) % Lymph % (Auto) (20-40) % [place] % (Auto) (2-11) % Eos % (Auto) (0-4) % Baso % (Auto) (0-2) % Lymph # (Auto) (1.2-4.9) X10*3/uL [place] # (Auto) (0.1-1.2) X10*3/uL Eos # (Auto) (0.0-0.4) X10*3/uL Baso # (Auto) (0.0-0.2) X10*3/uL Abs Immat Gran (auto) (0.00-0.03) X10*3/uL Absolute Neuts (auto) (2.0-8.3) x10*3/uL Absolute Nucleated RBC (0.0-0.012) X10*3/uL Nucleated RBC % (auto) (0.0-0.2) /100WBC Sodium (135-145) mmol/L Potassium (3.3-5.1) mmol/L Chloride (96-108) mmol/L Carbon Dioxide (22-29) mmol/L Anion Gap (12-20) BUN (9-16) mg/dL Creatinine (0.5-1.4) mg/dL Estim Creat Clear Calc Estimated GFR Random Glucose (60-115) mg/dL Calcium (8.4-10.2) mg/dL Magnesium (1.6-2.6) mg/dL Total Bilirubin (0.0-1.0) mg/dL Direct Bilirubin (0.0-0.5) mg/dL AST (5-31) U/L ALT (0-31) U/L Alkaline Phosphatase (39-117) U/L Troponin I High Sens 100.7 H* D (<3.5-17.0) ng/L Total Protein (6.5-8.0) g/dL Albumin (3.5-5.0) g/dL COVID-19 ([facility]INA) (Negative) COVID-19 Clin Com ECG Data Attestation: I personally reviewed and interpreted this ECG as follows: ECG interpretation date: 04/15/21 ECG interpretation time: 12:31 Interpretation: Rate: 99 Rhythm: NSR [place]: normal , LVH Normal P waves. Normal FRIEDA. Normal QRS complex. ST T wave : nonspecific, no MELLISA qTC: normal prior studies: no acute ischemia The study has been interpreted contemporaneously by me. . Discharge Plan Discharge Clinical Impression: Elevated troponin, Non-compliance, End-stage renal disease (ESRD) Volume overload Qualifiers: Hypervolemia type: unspecified Qualified Code(s): E87.70 - Fluid overload, unspecified HTN (hypertension) Qualifiers: Hypertension type: unspecified Qualified Code(s): I10 - Essential (primary) hypertension Patient Disposition: Admitted As Inpatient
[2021-04-15] MEDS: Nitroglycerin 2 % Oint 1 GM Packet 1 INCH TRANSDERMA (12:03)
[2021-04-15] MEDS: Albuterol Sulfate (0.083%) 2.5 MG/3 ML VIAL.NEB 5 MG INHALE (12:06)
[2021-04-15] MEDS: methylPREDNISolone Sod Succ 125 MG/2 ML VIAL IVPUSH (12:16)
[2021-04-15 13:08] LABS: COVID-19 Test Negative (Negative)
[2021-04-15 13:43] LABS: MANUAL DIFF FLAG NO
[2021-04-15 13:45] LABS: Basophils Percent Auto 0.2 % (0-2); Eosinophils Absolute Auto 0.2 X10*3/uL (0.0-0.4); Eosinophils Percent Auto 1.5 % (0-4); Hematocrit 26.8 % (37.0-47.0); Hemoglobin 8.3 g/dl (12.0-16.0); Imm Gran Abs Auto 0.05 X10*3/uL (0.00-0.03); Imm Gran Pct Auto 0.4 % (0.0-0.4); Lymphocytes Absolute Auto 1.1 X10*3/uL (1.2-4.9); Lymphocytes Percent Auto 9.1 % (20-40); Mean Corpuscular Hemoglobin 28.4 pg (27.0-33.0); Mean Corpuscular Volume 91.8 fL (80.0-98.0); Mean Platelet Volume 9.1 fL (9.4-12.3); Monocytes Absolute Auto 0.5 X10*3/uL (0.1-1.2); Monocytes Percent Auto 4.2 % (2-11); Neutrophils Absolute Auto 10.3 x10*3/uL (2.0-8.3); Neutrophils Percent Auto 84.6 % (45-73); Platelet Count 259 X10*3/uL (160-400); Red Blood Count 2.92 X10*6/uL (4.20-5.50); Red Cell Distribution Width 17.4 % (11.0-16.0); White Blood Count 12.1 X10*3/uL (4.8-10.8)
[2021-04-15 14:03] LABS: Alanine Aminotransferase 17 U/L (0-31); Albumin Level 3.7 g/dL (3.5-5.0); Alkaline Phosphatase 152 U/L (39-117); Anion Gap 21 (12-20); Aspartate Amino Transferase 26 U/L (5-31); Bilirubin Direct 0.2 mg/dL (0.0-0.5); Bilirubin Total 0.3 mg/dL (0.0-1.0); Blood Urea Nitrogen 30 mg/dL (9-16); Calcium 8.3 mg/dL (8.4-10.2); Carbon Dioxide 21 mmol/L (22-29); Chloride 99 mmol/L (96-108); Creatinine Clr Calc Pharmacy 7.1; Estimated Glomerular Filt Rate 5; Glucose Random 153 mg/dL (60-115); Magnesium 2.2 mg/dL (1.6-2.6); Potassium 4.6 mmol/L (3.3-5.1); Sodium 136 mmol/L (135-145)
--- NOTE | 2021-04-15 14:07 | PHA.MEDREC ---
MED REC COMPLETE, NO ISSUES, REVIEWED LIST WITH PATIENTS VISITING NURSE Pharmacy Consult ? Medication Reconciliation Pharmacy has completed the medication reconciliation.
[2021-04-15 14:11] LABS: Troponin-I High Sensitivity 100.7 ng/L (<3.5-17.0)
[2021-04-15] MEDS: ondansetron HCL 4 MG/2 ML VIAL IVPUSH (14:20)
--- NOTE | 2021-04-15 15:39 | P.HPHOSP_ITS ---
History of Present Illness Date of Service: 04/15/21 Chief Complaint: Dyspnea A 66 years old lady with PMH of ESRD on HD, HTN, CHF among others who presented to the hospital with worsening shortness of breath for 1 day duration. The patient had dialysis on Sunday which seems like she did not finish with reported issues with compliance. Yesterday she reports started feeling shortness of breath and that makes her very worried and concerned and she becomes anxious. This morning she reports feeling very tired and shortness of breath and out of energy with feeling of swelling in her legs with decided to come to the hospital for further evaluation. In the emergency she was noted to have edema and chest x-ray showed vascular congestion. Admitted for further evaluation and treatment. Review of Systems Review of Systems: No fever, chills but reports generalized weakness No chest pain, palpitation but has some edema Reporting shortness of breath and feeling dyspneic No abdominal pain, nausea or vomiting No urinary symptoms No any rash or wounds PMFSH Medical History Acute kidney injury superimposed on chronic kidney disease VANDANA (acute kidney injury) CHF (congestive heart failure) Constipation Diabetes mellitus Diastolic congestive heart failure Essential hypertension HTN (hypertension) Hypertension Normocytic anemia Family History Other Hypertension Surgical History No pertinent past surgical history Social History Household Members: None Housing: House Do you presently have visiting nurse or other home services: Yes (VOLUNTEER SERVICES ASSISTANT 7days/week) Patient Tobacco Use Status: Current everyday Tobacco user Tobacco use type: Cigarette Cigarette Packs Per Day: 1 Second Hand Smoke Exposure: No Use of substances other than those prescribed or required for medical reasons: No Substance Use Type: Heroin Advance Directives: No Advance Directives Information Provided: No service: No Current occupational status: unemployed and disabled Meds Allergies Allergy/AdvReac Type Severity Reaction Status Date / Time No Known Allergies Allergy Mild NOT Verified 12/14/20 11:50 APPLICABLE Active Medications: Current Medications Pharmacy Consult (Consult Rx Perform Med Rec) 1 each MISCELLANE ONCE PRN PRN Reason: Consult order Home Medications Medication Instructions Recorded Confirmed Last Taken Type aspirin 81 mg tablet,delayed 81 mg PO DAILY 10/22/20 04/15/21 Unknown History release buprenorphine 8 mg-naloxone 2 mg 1 strip SUBLINGUAL BID 10/22/20 04/15/21 Unknown History sublingual film (Suboxone) clonidine HCl 0.1 mg tablet 0.1 mg PO TID 10/22/20 04/15/21 Unknown History diclofenac sodium 1 % topical gel 2 g TOPICAL QID 10/22/20 04/15/21 Unknown History diltiazem HCl 180 mg 180 mg PO DAILY 10/22/20 04/15/21 Unknown History capsule,extended release 24 hr docusate sodium 100 mg capsule 1 - 2 cap PO BEDTIME PRN 10/22/20 04/15/21 Unknown History escitalopram oxalate 5 mg tablet 5 mg PO DAILY 10/22/20 04/15/21 Unknown History insulin lispro 100 unit/mL 4 - 12 unit SUBCUT TIDAC 10/22/20 04/15/21 Unknown History subcutaneous pen (Humalog KwikPen (U-100) Insulin) mirtazapine 15 mg tablet 15 mg PO BEDTIME 10/22/20 04/15/21 Unknown History multivitamin (One Daily 1 tab PO DAILY 10/22/20 04/15/21 Unknown History Multivitamin) tiotropium bromide 18 mcg capsule 1 cap INHALATION DAILY 10/22/20 04/15/21 Unknown History with inhalation device (Spiriva with HandiHaler) trazodone 100 mg tablet 1 - 2 tab PO BEDTIME 10/22/20 04/15/21 Unknown History albuterol sulfate 1 amp INHALATION TID PRN 02/25/21 04/15/21 Unknown History olanzapine 10 mg tablet 1 tab PO BEDTIME 02/25/21 04/15/21 Unknown History bumetanide 2 mg tablet 2 mg PO DAILY 04/15/21 04/15/21 Unknown History fluticasone propionate 110 1 puff INHALATION BID 04/15/21 04/15/21 Unknown History mcg/actuation HFA aerosol inhaler (Flovent HFA) melatonin 5 mg tablet 5 mg PO BEDTIME PRN 04/15/21 04/15/21 Unknown History pantoprazole 40 mg tablet,delayed 40 mg PO DAILY 04/15/21 04/15/21 Unknown History release vitamin B comp no.3-folic acid 1 1 tab PO DAILY 04/15/21 04/15/21 Unknown History mg-vit C 60 mg-biotin 300 mcg tablet (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[facility]) Physical Exam Vital Signs and Narrative: Vital Signs: Last Vital Signs Temp 98.6 F 04/15/21 15:01 Pulse 113 H 04/15/21 15:01 Resp 18 04/15/21 15:01 BP 187/80 H 04/15/21 15:01 Pulse Ox 91 L 04/15/21 15:01 Body Mass Index 37.5 Const: Other: Constitutional : Alert, oriented, in mild respiratory distress Neck : Normal inspection, Supple Cardiovascular : RRR, S1 S2, +1 bilateral lower extremity edema Respiratory : Fair bilateral air entry, basal bilateral crackles, expiratory wheezes but no rhonchi Gastrointestinal: soft, lax, Normal bowel sounds, Non tender Skin : Warm, Dry Neurological : Alert & oriented x3, No focal deficit Results Labs CBC and Chem 7: 04/15/21 13:41 04/15/21 13:41 Labs: Laboratory Results - last 24 hr 04/15/21 04/15/21 04/15/21 12:40 13:41 13:41 MCV 91.8 MCH 28.4 MCHC 31.0 RDW 17.4 H Plt Count 259 MPV 9.1 L Immature Gran % (Auto) 0.4 Neut % (Auto) 84.6 H Lymph % (Auto) 9.1 L [place] % (Auto) 4.2 Eos % (Auto) 1.5 Baso % (Auto) 0.2 Lymph # (Auto) 1.1 L [place] # (Auto) 0.5 Eos # (Auto) 0.2 Baso # (Auto) 0.0 Abs Immat Gran (auto) 0.05 H Absolute Neuts (auto) 10.3 H Absolute Nucleated RBC 0.000 Nucleated RBC % (auto) 0.0 Anion Gap 21 H Estim Creat Clear Calc 7.1 Estimated GFR 5 Random Glucose 153 H Calcium 8.3 L Magnesium 2.2 Total Bilirubin 0.3 Direct Bilirubin 0.2 AST 26 D ALT 17 Alkaline Phosphatase 152 H Troponin I High Sens Total Protein 7.0 Albumin 3.7 COVID-19 ([facility]) Negative COVID-19 Clin Com See Note 04/15/21 13:41 MCV MCH MCHC RDW Plt Count MPV Immature Gran % (Auto) Neut % (Auto) Lymph % (Auto) [place] % (Auto) Eos % (Auto) Baso % (Auto) Lymph # (Auto) [place] # (Auto) Eos # (Auto) Baso # (Auto) Abs Immat Gran (auto) Absolute Neuts (auto) Absolute Nucleated RBC Nucleated RBC % (auto) Anion Gap Estim Creat Clear Calc Estimated GFR Random Glucose Calcium Magnesium Total Bilirubin Direct Bilirubin AST ALT Alkaline Phosphatase Troponin I High Sens 100.7 H* D Total Protein Albumin COVID-19 ([facility]) COVID-19 Clin Com Imaging Radiologist's Impressions: Impressions Chest X-Ray 04/15/21 11:58 IMPRESSION: Suspect mild vascular congestion or volume overload. Venous Duplex 04/15/21 12:17 IMPRESSION: 1. No DVT demonstrated in the bilateral lower extremity. 2. If the patient's symptoms persist, followup ultrasound in 5 days 7 days might be of value to exclude proximal propagation from a non-visualized calf vein. Assessment and Plan (1) Volume overload: Qualifiers: Hypervolemia type: unspecified Qualified Code(s): E87.70 - Fluid overload, unspecified Status: Acute (2) End-stage renal disease (ESRD): Status: Acute (3) Acute exacerbation of CHF (congestive heart failure): Status: Acute A 66 years old lady with PMH of ESRD on HD, HTN, CHF among others who presented to the hospital with worsening shortness of breath for 1 day duration. Acute diastolic CHF exacerbation Secondary to fluid overload in ESRD patient CXR showing congestion Elevated BNP Has crackles and lower extremity edema To give IV Bumex for now Get Nephrology on board for dialysis tomorrow Uncontrolled hypertension Elevated readings of 180s systolic Start home medications now of hydralazine, diltiazem and clonidine Monitor blood pressure Sinus tachycardia No source of infection identified could be secondary to anxiety, nebulizers Continue to monitor COPD exacerbation Received methylprednisone and nebulizer continue with steroids daily Xopenex nebulizer for tachycardia Type 2 diabetes SSI, Lantus diabetic diet Opioid use disorder continue Suboxone continue rest of home medications DVT PPX Heparin Quality Stroke Does the patient have a stroke diagnosis?: No VTE Prior VTE?: No VTE Risk Level:: Medical - moderate - high VTE Device Contraindication: Treatment Not Indicated VTE Drug Contraindication: N/A - Med Ordered
[2021-04-15] MEDS: cloNIDine HCL 0.1 MG TABLET PO ×2 (15:59→21:25)
[2021-04-15] MEDS: dilTIAZem HCL CD 180 MG CAP.ER.24H PO (15:59)
[2021-04-15] MEDS: hydrALAZINE HCl 50 MG TABLET 100 MG PO ×2 (15:59→21:25)
[2021-04-15] MEDS: Heparin Sodium,Porcine 5,000 UNIT/ML VIAL 5000 UNIT SUBCUT (16:00)
[2021-04-15 16:01] LABS: B Type Natriuretic Peptide 1732 pg/mL (<100)
[2021-04-15] MEDS: Bumetanide 1 MG/4 ML VIAL 2 MG IVPUSH (16:09)
[2021-04-15] MEDS: 0.9 % Sodium Chloride Flush 3 ML SYRINGE IVFLUSH (16:14)
[2021-04-15 17:19] LABS: Glucose, Whole Blood 171 mg/dL (60-115)
[2021-04-15] MEDS: Insulin Lispro 100 UNIT/ML 3 ML VIAL SUBCUT ×2 (17:38→21:26)
[2021-04-15 21:19] LABS: Glucose, Whole Blood 223 mg/dL (60-115)
[2021-04-15] MEDS: traZODone HCL 100 MG TABLET PO (21:25)
[2021-04-15] MEDS: Mirtazapine 15 MG TABLET PO (21:25)
[2021-04-15] MEDS: Buprenorphine/Naloxone 8/2 mg FILM 1 FILM SUBLINGUAL (21:25)
[2021-04-15] MEDS: amLODIPine Besylate 10 MG TABLET PO (21:25)
[2021-04-15] MEDS: OLANZapine 10 MG TABLET PO (21:29)
[2021-04-16] VITALS (14 sets, daily range): BP systolic 137–183; BP diastolic 52–80; PULSE 80–102; RESP 16–21; TEMP 36.2–36.9; O2SAT 96–100; BMI 38.6
[2021-04-16 01:21] LABS: Glucose, Whole Blood 187 mg/dL (60-115)
[2021-04-16] MEDS: Acetaminophen 325 MG TABLET 650 MG PO ×3 (02:48→17:49)
[2021-04-16] MEDS: Heparin Sodium,Porcine 5,000 UNIT/ML VIAL 5000 UNIT SUBCUT ×2 (02:49→16:34)
[2021-04-16] MEDS: 0.9 % Sodium Chloride Flush 3 ML SYRINGE IVFLUSH ×4 (02:49→22:03)
[2021-04-16] MEDS: ondansetron HCL 4 MG/2 ML VIAL IVPUSH (05:14)
[2021-04-16 06:01] LABS: Anion Gap 22 (12-20); Blood Urea Nitrogen 42 mg/dL (9-16); Calcium 8.4 mg/dL (8.4-10.2); Carbon Dioxide 21 mmol/L (22-29); Chloride 97 mmol/L (96-108); Glucose Random 204 mg/dL (60-115); Potassium 5.9 mmol/L (3.3-5.1); Sodium 134 mmol/L (135-145)
[2021-04-16 06:03] LABS: Creatinine Clr Calc Pharmacy 6.4; Estimated Glomerular Filt Rate 4
[2021-04-16 07:54] LABS: Glucose, Whole Blood 168 mg/dL (60-115)
[2021-04-16] MEDS: Insulin Lispro 100 UNIT/ML 3 ML VIAL SUBCUT ×2 (08:00→16:34)
[2021-04-16] MEDS: dilTIAZem HCL CD 180 MG CAP.ER.24H PO (08:01)
[2021-04-16] MEDS: Insulin Glargine,Hum.rec.anlog 100 UNIT/ML 10 ML VIAL 12 UNIT SUBCUT (08:01)
[2021-04-16] MEDS: Aspirin Enteric Coated 81 MG TABLET.DR PO (08:01)
[2021-04-16] MEDS: cloNIDine HCL 0.1 MG TABLET PO ×3 (08:01→22:02)
[2021-04-16] MEDS: Bumetanide 1 MG/4 ML VIAL 2 MG IVPUSH (08:01)
[2021-04-16] MEDS: Escitalopram Oxalate 5 MG TABLET PO (08:01)
[2021-04-16] MEDS: hydrALAZINE HCl 50 MG TABLET 100 MG PO ×3 (08:02→22:01)
[2021-04-16] MEDS: Buprenorphine/Naloxone 8/2 mg FILM 1 FILM SUBLINGUAL ×2 (08:02→22:02)
[2021-04-16] MEDS: Multivitamin TABLET 1 TAB PO (08:02)
[2021-04-16] MEDS: predniSONE 20 MG TABLET 40 MG PO (08:02)
[2021-04-16] MEDS: Nicotine 21 MG PATCH.TD24 TRANSDERMA (08:02)
[2021-04-16] MEDS: Sodium Polystyrene Sulfon/Sorb 15 GM/60 ML ORAL.SUSP PO (11:02)
--- NOTE | 2021-04-16 11:32 | P.PNNP_ITS ---
Subjective Subjective Date of Service: 04/16/21 Interval history: Pt seen on HD C/o abd pain Physical Exam Vital Signs: Vital Signs: Last Vital Signs Temp 97.1 F 04/16/21 08:00 Pulse 102 H 04/16/21 08:21 Resp 20 04/16/21 08:00 BP 167/68 H 04/16/21 08:02 Pulse Ox 100 04/16/21 08:00 Body Mass Index 38.6 Appearance: Alert.? Oriented X3.? No acute distress.? Anxious Eyes: Pupils equal, round and reactive to light.? ENT: Pharynx normal.? Neck: Normal inspection.? Neck supple. + JVD CVS: Normal heart rate and rhythm.? Pulses normal.? Respiratory: No respiratory distress.? Breath sounds diffuse wheezes but also rales heard in bases Abdomen: Soft and nontender.? Skin: Skin warm and dry.? Normal skin color.? Normal skin turgor.? Extremities: 1-2+ pitting lower extremity edema.? No calf ttp Neuro: Oriented X 3.? No motor deficit.? No sensory deficit. Objective Data Labs CBC & Chem 7: 04/15/21 13:41 04/16/21 05:07 Labs: Laboratory Results - last 24 hr 04/15/21 04/15/21 04/15/21 12:40 13:41 13:41 WBC 12.1 H RBC 2.92 L Hgb 8.3 L Hct 26.8 L MCV 91.8 MCH 28.4 MCHC 31.0 RDW 17.4 H Plt Count 259 MPV 9.1 L Immature Gran % (Auto) 0.4 Neut % (Auto) 84.6 H Lymph % (Auto) 9.1 L [place] % (Auto) 4.2 Eos % (Auto) 1.5 Baso % (Auto) 0.2 Lymph # (Auto) 1.1 L [place] # (Auto) 0.5 Eos # (Auto) 0.2 Baso # (Auto) 0.0 Abs Immat Gran (auto) 0.05 H Absolute Neuts (auto) 10.3 H Absolute Nucleated RBC 0.000 Nucleated RBC % (auto) 0.0 Sodium 136 Potassium 4.6 Chloride 99 Carbon Dioxide 21 L Anion Gap 21 H BUN 30 H Creatinine 8.05 H* Estim Creat Clear Calc 7.1 Estimated GFR 5 POC Glucose Random Glucose 153 H Calcium 8.3 L Magnesium 2.2 Total Bilirubin 0.3 Direct Bilirubin 0.2 AST 26 D ALT 17 Alkaline Phosphatase 152 H Troponin I High Sens B-Natriuretic Peptide Total Protein 7.0 Albumin 3.7 COVID-19 (KRYSTINA) Negative COVID-19 [employer] Com See Note 04/15/21 04/15/21 04/15/21 13:41 17:15 21:16 WBC RBC Hgb Hct MCV MCH MCHC RDW Plt Count MPV Immature Gran % (Auto) Neut % (Auto) Lymph % (Auto) [place] % (Auto) Eos % (Auto) Baso % (Auto) Lymph # (Auto) [place] # (Auto) Eos # (Auto) Baso # (Auto) Abs Immat Gran (auto) Absolute Neuts (auto) Absolute Nucleated RBC Nucleated RBC % (auto) Sodium Potassium Chloride Carbon Dioxide Anion Gap BUN Creatinine Estim Creat Clear Calc Estimated GFR POC Glucose 171 H 223 H Random Glucose Calcium Magnesium Total Bilirubin Direct Bilirubin AST ALT Alkaline Phosphatase Troponin I High Sens 100.7 H* D B-Natriuretic Peptide 1732 H Total Protein Albumin COVID-19 (KRYSTINA) COVID-[place] Window 04/16/21 04/16/21 04/16/21 01:17 05:07 07:22 WBC RBC Hgb Hct MCV MCH MCHC RDW Plt Count MPV Immature Gran % (Auto) Neut % (Auto) Lymph % (Auto) [place] % (Auto) Eos % (Auto) Baso % (Auto) Lymph # (Auto) [place] # (Auto) Eos # (Auto) Baso # (Auto) Abs Immat Gran (auto) Absolute Neuts (auto) Absolute Nucleated RBC Nucleated RBC % (auto) Sodium 134 L Potassium 5.9 H D Chloride 97 Carbon Dioxide 21 L Anion Gap 22 H BUN 42 H Creatinine 9.07 H* Estim Creat Clear Calc 6.4 Estimated GFR 4 POC Glucose 187 H 168 H Random Glucose 204 H Calcium 8.4 Magnesium Total Bilirubin Direct Bilirubin AST ALT Alkaline Phosphatase Troponin I High Sens B-Natriuretic Peptide Total Protein Albumin COVID-19 (KRYSTINA) COVID-19 [facility] Procedures Date of Service Date of Service: 04/16/21 Assessment & Plan Assessment and plan (1) End-stage renal disease (ESRD): Status: Acute Assessment and Plan: ESRD Recent VANDANA: rapid loss of renal func over the past 3 months Scr 3.0 to now 9 without obvious explanation--most c/w prog CKD and now ESRD Recent Renal Bx : limited sample and significant glomerulosclerosis and no tissue for? IF and EM not suggestive of Im-Cx mediated GN;prior sero unrevealing;? CT show mild hydro ? signif as was apparently present in 2016 as well but not evident on U/S CHF _ missed part of HD Rx on Sunday Hyperkalemia Contineu HD today Vol removal as tolerated with Albumin 2 K bath 2 G Na / 2G K diet Fluid restriction Thx Next HD on Sunday Dr. Ardon (2) Anemia in chronic kidney disease: Status: Acute (3) HTN (hypertension): Status: Acute (4) Acute exacerbation of CHF (congestive heart failure): Status: Acute Time Spent With Patient Time: Total time spent is greater than 50% in coordination of care (as documented) at patient's floor/unit and/or counseling patient: Time with patient: 25 - 35 minutes Progress Note: Quality Stroke Does the patient have a stroke diagnosis?: No
[2021-04-16 12:57] LABS: Glucose, Whole Blood 117 mg/dL (60-115)
--- NOTE | 2021-04-16 14:32 | HO.PM.IMPN ---
Subjective Subjective Date of Service: 04/16/21 Review of Systems Follow up HF, ESRD Tired today, no pain Denied chest pain, shortness of breath, nausea, vomiting, diarrhea All other systems are reviewed and are negative Physical Exam Vital Signs: Vital Signs: Last Vital Signs Temp 97.1 F 04/16/21 08:00 Pulse 102 H 04/16/21 08:21 Resp 20 04/16/21 08:00 BP 167/68 H 04/16/21 08:02 Pulse Ox 100 04/16/21 08:00 Body Mass Index 38.6 Appearing in no acute distress lung sounds are clear to auscultation heart regular rate rhythm positive bowel sounds, abdomen is soft, nontender, obese neuro patient is alert x3, no focal deficits Objective Data Active Medications Acetaminophen (Acetaminophen 325 Mg Tablet) 650 mg PO Q6H PRN PRN Reason: Pain, Mild (Pain Scale 1-3) Last Admin: 04/16/21 11:01 Dose: 650 mg Documented by: KELSI Albuterol Sulfate (Albuterol Sulfate (0.083%) 2.5 Mg/3 Ml Vial.Mookie) 2.5 mg INHALE TID PRN PRN Reason: Wheezing Amlodipine Besylate (Amlodipine Besylate 10 Mg Tablet) 10 mg PO BEDTIME [facility]; Protocol Last Admin: 04/15/21 21:25 Dose: 10 mg Documented by: PELON Aspirin (Aspirin Enteric Coated 81 Mg Tablet.) 81 mg PO DAILY [facility] Last Admin: 04/16/21 08:01 Dose: 81 mg Documented by: KELSI Bumetanide (Bumetanide 1 Mg/4 Ml Vial) 2 mg IVPUSH DAILY [facility]; Protocol Last Admin: 04/16/21 08:01 Dose: 2 mg Documented by: KELSI Buprenorphine/Naloxone (Buprenorphine/Naloxone 8/2 Mg Film) 1 film SUBLINGUAL BID [facility] Last Admin: 04/16/21 08:02 Dose: 1 film Documented by: KELSI Clonidine HCl (Clonidine Hcl 0.1 Mg Tablet) 0.1 mg PO TID [facility]; Protocol Last Admin: 04/16/21 08:01 Dose: 0.1 mg Documented by: KELSI Diltiazem HCl (Diltiazem Hcl Cd 180 Mg Cap.Er.24h) 180 mg PO DAILY [facility]; Protocol Last Admin: 04/16/21 08:01 Dose: 180 mg Documented by: KELSI Escitalopram Oxalate (Escitalopram Oxalate 5 Mg Tablet) 5 mg PO DAILY [facility] Last Admin: 04/16/21 08:01 Dose: 5 mg Documented by: KELSI Heparin Sodium (Porcine) (Heparin Sodium,Porcine 5,000 Unit/Ml Vial) 5,000 unit SUBCUT Q12H [facility] Last Admin: 04/16/21 02:49 Dose: 5,000 unit Documented by: CHADD Hydralazine HCl (Hydralazine Hcl 50 Mg Tablet) 100 mg PO TID [facility]; Protocol Last Admin: 04/16/21 08:02 Dose: 100 mg Documented by: KELSI Insulin Glargine (Insulin Glargine,Hum.Rec.Anlog 100 Unit/Ml 10 Ml Vial) 12 unit SUBCUT DAILY [facility] Last Admin: 04/16/21 08:01 Dose: 12 unit Documented by: KELSI Insulin Human Lispro (Insulin Lispro 100 Unit/Ml 3 Ml Vial) 0 unit SUBCUT QIDACHS [facility]; Protocol Last Admin: 04/16/21 13:35 Dose: Not Given Documented by: KELSI Non-Admin Reason: No Insulin Coverage Levalbuterol HCl (Levalbuterol Hcl 1.25 Mg/0.5 Ml Vial.Neb) 1.25 mg INHALE RQ4H WHILE AWAKE [facility] Last Admin: 04/16/21 12:15 Dose: Not Given Documented by: ZORAIDA Non-Admin Reason: Off unit: Dialysis Mirtazapine (Mirtazapine 15 Mg Tablet) 15 mg PO BEDTIME [facility] Last Admin: 04/15/21 21:25 Dose: 15 mg Documented by: LUPEOPEAlexus Multivitamins/Vitamin C (Multivitamin Tablet) 1 tab PO DAILY [facility] Last Admin: 04/16/21 08:02 Dose: 1 tab Documented by: KELSI Nicotine (Nicotine 21 Mg Patch.Td24) 21 mg TRANSDERMA DAILY [facility] Last Admin: 04/16/21 08:02 Dose: 21 mg Documented by: KELSI Olanzapine (Olanzapine 10 Mg Tablet) 10 mg PO BEDTIME [facility] Last Admin: 04/15/21 21:29 Dose: 10 mg Documented by: PELON Ondansetron HCl (Ondansetron Hcl 4 Mg/2 Ml Vial) 4 mg IVPUSH Q8H PRN PRN Reason: Nausea and Vomiting Last Admin: 04/16/21 05:14 Dose: 4 mg Documented by: HUBERT Pharmacy Consult (Consult Rx Perform Med Rec) 1 each MISCELLANE ONCE PRN PRN Reason: Consult order Polyethylene Glycol (Polyethylene Glycol 3350 17 Gm Powd.Pack) 17 gm PO DAILY PRN PRN Reason: constipation Prednisone (Prednisone 20 Mg Tablet) 40 mg PO DAILY [facility] Last Admin: 04/16/21 08:02 Dose: 40 mg Documented by: KELSI Sodium Chloride (0.9 % Sodium Chloride Flush 3 Ml Syringe) 3 ml IVFLUSH QSHIFT [facility] Last Admin: 04/16/21 08:08 Dose: 3 ml Documented by: KELSI Tiotropium [place] (Tiotropium [place] 18 Mcg Cap.W.Dev) 1 puff INHALE RDAILY [facility] Last Admin: 04/16/21 11:03 Dose: Not Given Documented by: CLARISSA Non-Admin Reason: Med Not Available Trazodone HCl (Trazodone Hcl 100 Mg Tablet) 100 mg PO BEDTIME [facility] Last Admin: 04/15/21 21:25 Dose: 100 mg Documented by: PELON Labs CBC & Chem 7: 04/15/21 13:41 04/16/21 05:07 Labs: Laboratory Results - last 24 hr 04/15/21 04/15/21 04/15/21 13:41 17:15 21:16 Anion Gap Estim Creat Clear Calc Estimated GFR POC Glucose 171 H 223 H Random Glucose Calcium B-Natriuretic Peptide 1732 H 04/16/21 04/16/21 04/16/21 01:17 05:07 07:22 Anion Gap 22 H Estim Creat Clear Calc 6.4 Estimated GFR 4 POC Glucose 187 H 168 H Random Glucose 204 H Calcium 8.4 B-Natriuretic Peptide 04/16/21 12:53 Anion Gap Estim Creat Clear Calc Estimated GFR POC Glucose 117 H Random Glucose Calcium B-Natriuretic Peptide Assessment and Plan (1) End-stage renal disease (ESRD): Status: Acute (2) (HFpEF) heart failure with preserved ejection fraction: Status: Acute (3) Anemia in chronic kidney disease: Status: Acute (4) HTN (hypertension): Status: Acute Assessment and Plan: A 66 years old lady with PMH of ESRD on HD, HTN, CHF among others who presented to the hospital with worsening shortness of breath for 1 day duration. Acute HFpEF Secondary to fluid overload in ESRD patient CXR showing congestion Elevated BNP IV Bumex Nephro following, dialysis today 04/16 Uncontrolled hypertension Start home medications now of hydralazine, diltiazem and clonidine Monitor blood pressure closely, avoid significant drops Sinus tachycardia No source of infection identified could be secondary to anxiety, nebulizers Continue to monitor COPD exacerbation Levalbuterol and prednisone Type 2 diabetes SSI, Lantus diabetic diet Opioid use disorder continue Suboxone Anemia. Chronic secondary to ESRD DVT prophylaxis with heparin Attending Dr. James Quality Stroke Does the patient have a stroke diagnosis?: No VTE Prior VTE?: No VTE Risk Level:: Medical - moderate - high VTE Device Contraindication: Treatment Not Indicated VTE Drug Contraindication: N/A - Med Ordered
--- NOTE | 2021-04-16 15:39 | MHC.CM.PN ---
Met with patient using top and seat cover fitter. Able to understand some French, but needed assistance understanding HCP. Patient also reports she is not able to read. 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 Attends dialysis Mon-Sun-Sun in [place], [employer] picks up weekly supply of suboxone. Walker and w/c at home. Assisted patient in completing HCP, she chose her [employer] who is also family, Chelly Kelley. Gave patient original and copies and placed a copy in her chart. Anticipate no additional needs on dc, [employer] to drive home.
[2021-04-16 16:20] LABS: Glucose, Whole Blood 192 mg/dL (60-115)
[2021-04-16 19:45] LABS: Glucose, Whole Blood 147 mg/dL (60-115)
[2021-04-16] MEDS: OLANZapine 10 MG TABLET PO (22:01)
[2021-04-16] MEDS: Mirtazapine 15 MG TABLET PO (22:01)
[2021-04-16] MEDS: traZODone HCL 100 MG TABLET PO (22:02)
[2021-04-16] MEDS: amLODIPine Besylate 10 MG TABLET PO (22:02)
[2021-04-17] VITALS (16 sets, daily range): BP systolic 125–161; BP diastolic 50–73; PULSE 77–89; RESP 17–20; TEMP 36.3–37.6; O2SAT 97–100; BMI 37.5
[2021-04-17] MEDS: Heparin Sodium,Porcine 5,000 UNIT/ML VIAL 5000 UNIT SUBCUT ×2 (04:04→15:36)
[2021-04-17 07:26] LABS: Anion Gap 21 (12-20); Blood Urea Nitrogen 29 mg/dL (9-16); Calcium 7.7 mg/dL (8.4-10.2); Carbon Dioxide 19 mmol/L (22-29); Chloride 97 mmol/L (96-108); Creatinine Clr Calc Pharmacy 9.6; Estimated Glomerular Filt Rate 7; Glucose Random 129 mg/dL (60-115); Potassium 4.9 mmol/L (3.3-5.1); Sodium 132 mmol/L (135-145)
[2021-04-17 07:57] LABS: Glucose, Whole Blood 114 mg/dL (60-115)
[2021-04-17] MEDS: 0.9 % Sodium Chloride Flush 3 ML SYRINGE IVFLUSH ×3 (08:21→20:53)
[2021-04-17] MEDS: Bumetanide 1 MG/4 ML VIAL 2 MG IVPUSH (08:22)
[2021-04-17] MEDS: predniSONE 20 MG TABLET 40 MG PO (08:24)
[2021-04-17] MEDS: cloNIDine HCL 0.1 MG TABLET PO ×3 (08:25→20:53)
[2021-04-17] MEDS: Aspirin Enteric Coated 81 MG TABLET.DR PO (08:25)
[2021-04-17] MEDS: hydrALAZINE HCl 50 MG TABLET 100 MG PO ×3 (08:25→20:52)
[2021-04-17] MEDS: dilTIAZem HCL CD 180 MG CAP.ER.24H PO (08:26)
[2021-04-17] MEDS: Multivitamin TABLET 1 TAB PO (08:27)
[2021-04-17] MEDS: Nicotine 21 MG PATCH.TD24 TRANSDERMA (08:28)
[2021-04-17] MEDS: Buprenorphine/Naloxone 8/2 mg FILM 1 FILM SUBLINGUAL ×2 (08:28→20:53)
[2021-04-17] MEDS: Escitalopram Oxalate 5 MG TABLET PO (08:28)
[2021-04-17] MEDS: Insulin Glargine,Hum.rec.anlog 100 UNIT/ML 10 ML VIAL 12 UNIT SUBCUT (08:29)
[2021-04-17 11:52] LABS: Glucose, Whole Blood 192 mg/dL (60-115)
[2021-04-17] MEDS: Insulin Lispro 100 UNIT/ML 3 ML VIAL SUBCUT ×3 (11:59→20:53)
--- NOTE | 2021-04-17 14:19 | HO.PM.IMPN ---
Subjective Subjective Date of Service: 04/17/21 Interval History: Being followed for fluid overload, complaining of shortness of breath, admit says compliance with hemodialysis 3 times per week, denies fever, chills, no cough, no sputum production, no nausea,no vomiting or diarrhea. Review of Systems General awake alert x3,no acute distress. Neck no JVD. CVS regular rate rhythm, Respiratory lungs basilar rales, no respiratory distress, no wheeze, no rhonchi. Gastrointestinal abdomen soft, nontender, bowel sounds audible, no rigidity. Extremities bilateral pitting edema. Neuro nonfocal Skin no rash Psych appropriate affect Physical Exam Vital Signs: Vital Signs: Last Vital Signs Temp 98 F 04/17/21 11:17 Pulse 82 04/17/21 11:21 Resp 18 04/17/21 11:17 BP 149/67 H 04/17/21 11:17 Pulse Ox 100 04/17/21 11:17 Body Mass Index 37.5 Objective Data Active Medications Acetaminophen (Acetaminophen 325 Mg Tablet) 650 mg PO Q6H PRN PRN Reason: Pain, Mild (Pain Scale 1-3) Last Admin: 04/16/21 17:49 Dose: 650 mg Documented by: KELSI Albuterol Sulfate (Albuterol Sulfate (0.083%) 2.5 Mg/3 Ml Vial.Mookie) 2.5 mg INHALE TID PRN PRN Reason: Wheezing Amlodipine Besylate (Amlodipine Besylate 10 Mg Tablet) 10 mg PO BEDTIME [facility]; Protocol Last Admin: 04/16/21 22:02 Dose: 10 mg Documented by: HUBERT Aspirin (Aspirin Enteric Coated 81 Mg Tablet.) 81 mg PO DAILY [facility] Last Admin: 04/17/21 08:25 Dose: 81 mg Documented by: JULIA Bumetanide (Bumetanide 1 Mg/4 Ml Vial) 2 mg IVPUSH DAILY [facility]; Protocol Last Admin: 04/17/21 08:22 Dose: 2 mg Documented by: JULIA Buprenorphine/Naloxone (Buprenorphine/Naloxone 8/2 Mg Film) 1 film SUBLINGUAL BID [facility] Last Admin: 04/17/21 08:28 Dose: 1 film Documented by: JULIA Clonidine HCl (Clonidine Hcl 0.1 Mg Tablet) 0.1 mg PO TID [facility]; Protocol Last Admin: 04/17/21 08:25 Dose: 0.1 mg Documented by: JULIA Diltiazem HCl (Diltiazem Hcl Cd 180 Mg Cap.Er.24h) 180 mg PO DAILY [facility]; Protocol Last Admin: 04/17/21 08:26 Dose: 180 mg Documented by: JULIA Escitalopram Oxalate (Escitalopram Oxalate 5 Mg Tablet) 5 mg PO DAILY [facility] Last Admin: 04/17/21 08:28 Dose: 5 mg Documented by: JULIA Heparin Sodium (Porcine) (Heparin Sodium,Porcine 5,000 Unit/Ml Vial) 5,000 unit SUBCUT Q12H [facility] Last Admin: 04/17/21 04:04 Dose: 5,000 unit Documented by: HUBERT Hydralazine HCl (Hydralazine Hcl 50 Mg Tablet) 100 mg PO TID [facility]; Protocol Last Admin: 04/17/21 08:25 Dose: 100 mg Documented by: JULIA Insulin Glargine (Insulin Glargine,Hum.Rec.Anlog 100 Unit/Ml 10 Ml Vial) 12 unit SUBCUT DAILY [facility] Last Admin: 04/17/21 08:29 Dose: 12 unit Documented by: JULIA Insulin Human Lispro (Insulin Lispro 100 Unit/Ml 3 Ml Vial) 0 unit SUBCUT QIDACHS [facility]; Protocol Last Admin: 04/17/21 11:59 Dose: 2 unit Documented by: JULIA Levalbuterol HCl (Levalbuterol Hcl 1.25 Mg/0.5 Ml Vial.Neb) 1.25 mg INHALE RQ4H WHILE AWAKE [facility] Last Admin: 04/17/21 11:21 Dose: 1.25 mg Documented by: HARJINDER Mirtazapine (Mirtazapine 15 Mg Tablet) 15 mg PO BEDTIME [facility] Last Admin: 04/16/21 22:01 Dose: 15 mg Documented by: HUBERT Multivitamins/Vitamin C (Multivitamin Tablet) 1 tab PO DAILY [facility] Last Admin: 04/17/21 08:27 Dose: 1 tab Documented by: JULIA Nicotine (Nicotine 21 Mg Patch.Td24) 21 mg TRANSDERMA DAILY [facility] Last Admin: 04/17/21 08:28 Dose: 21 mg Documented by: JULIA Olanzapine (Olanzapine 10 Mg Tablet) 10 mg PO BEDTIME [facility] Last Admin: 04/16/21 22:01 Dose: 10 mg Documented by: HUBERT Ondansetron HCl (Ondansetron Hcl 4 Mg/2 Ml Vial) 4 mg IVPUSH Q8H PRN PRN Reason: Nausea and Vomiting Last Admin: 04/16/21 05:14 Dose: 4 mg Documented by: HUBERT Pharmacy Consult (Consult Rx Perform Med Rec) 1 each MISCELLANE ONCE PRN PRN Reason: Consult order Polyethylene Glycol (Polyethylene Glycol 3350 17 Gm Powd.Pack) 17 gm PO DAILY PRN PRN Reason: constipation Prednisone (Prednisone 20 Mg Tablet) 40 mg PO DAILY [facility] Last Admin: 04/17/21 08:24 Dose: 40 mg Documented by: JULIA Sodium Chloride (0.9 % Sodium Chloride Flush 3 Ml Syringe) 3 ml IVFLUSH QSHIFT [facility] Last Admin: 04/17/21 08:21 Dose: 3 ml Documented by: JULIA Tiotropium [place] (Tiotropium [place] 18 Mcg Cap.W.Dev) 1 puff INHALE RDAILY [facility] Last Admin: 04/17/21 08:29 Dose: 1 puff Documented by: CLARISSA Trazodone HCl (Trazodone Hcl 100 Mg Tablet) 100 mg PO BEDTIME [facility] Last Admin: 04/16/21 22:02 Dose: 100 mg Documented by: HUBERT Labs CBC & Chem 7: 04/15/21 13:41 04/17/21 05:56 Labs: Laboratory Results - last 24 hr 04/16/21 04/16/21 04/17/21 16:09 19:37 05:56 Anion Gap 21 H Estim Creat Clear Calc 9.6 Estimated GFR 7 POC Glucose 192 H 147 H Random Glucose 129 H Calcium 7.7 L D 04/17/21 04/17/21 07:26 11:15 Anion Gap Estim Creat Clear Calc Estimated GFR POC Glucose 114 192 H Random Glucose Calcium Assessment and Plan (1) (HFpEF) heart failure with preserved ejection fraction: Status: Acute (2) Volume overload: Status: Acute (3) HTN (hypertension): Status: Acute (4) End-stage renal disease (ESRD): Status: Acute Assessment and Plan: 66 years old lady with PMH of ESRD on HD, HTN, CHF among others who presented to the hospital with worsening shortness of breath for 1 day duration. Acute HFpEF Persistent shortness of breath, likely due to fluid overload in ESRD patient CXR showing congestion, rales at bases Elevated BNP 1732, will repeat BNP at a.m. Continue IV Bumex, scheduled for dialysis tomorrow, Will discuss further treatment plan with Nephrology Uncontrolled hypertension BP better controlled continue Norvasc, hydralazine, diltiazem and clonidine Monitor blood pressure closely Sinus tachycardia Resolved was likely due to CHF COPD exacerbation Improved continue Levalbuterol , prednisone and spirivia Type 2 diabetes Blood sugar less than 200 on SSI, Lantus and diabetic diet Opioid use disorder continue Suboxone Anemia. Chronic secondary to ESRD Mild leukocytosis No evidence of infection chest x-ray showed no infiltrate, UA uncollected DVT prophylaxis with heparin Quality Stroke Does the patient have a stroke diagnosis?: No VTE Prior VTE?: No VTE Risk Level:: Medical - moderate - high VTE Device Contraindication: Treatment Not Indicated VTE Drug Contraindication: N/A - Med Ordered
[2021-04-17] MEDS: Acetaminophen 325 MG TABLET 650 MG PO (15:35)
[2021-04-17 16:39] LABS: Glucose, Whole Blood 259 mg/dL (60-115)
[2021-04-17 20:37] LABS: Glucose, Whole Blood 209 mg/dL (60-115)
[2021-04-17] MEDS: Mirtazapine 15 MG TABLET PO (20:52)
[2021-04-17] MEDS: traZODone HCL 100 MG TABLET PO (20:53)
[2021-04-17] MEDS: amLODIPine Besylate 10 MG TABLET PO (20:53)
[2021-04-17] MEDS: OLANZapine 10 MG TABLET PO (20:53)
--- NOTE | 2021-04-17 21:17 | PM.PNNEP ---
Subjective Subjective Date of Service: 04/17/21 Interval history: Being followed for fluid overload Improved shortness of breath Denies fever, chills, no cough, no sputum production, no nausea,no vomiting or diarrhea. Physical Exam Vital Signs: Vital Signs: Last Vital Signs Temp 98.5 F 04/17/21 19:15 Pulse 84 04/17/21 20:53 Resp 17 04/17/21 19:15 BP 138/65 04/17/21 20:53 Pulse Ox 100 04/17/21 19:15 Body Mass Index 37.5 Appearance: Alert.? Oriented X3.? No acute distress.? Anxious Eyes: Pupils equal, round and reactive to light.? ENT: Pharynx normal.? Neck: Normal inspection.? Neck supple. + JVD CVS: Normal heart rate and rhythm.? Pulses normal.? Respiratory: No respiratory distress.? Breath sounds diffuse wheezes but also rales heard in bases Abdomen: Soft and nontender.? Skin: Skin warm and dry.? Normal skin color.? Normal skin turgor.? Extremities: 1-2+ pitting lower extremity edema.? No calf ttp Neuro: Oriented X 3.? No motor deficit.? No sensory deficit. Objective Data Labs CBC & Chem 7: 04/15/21 13:41 04/17/21 05:56 Labs: Laboratory Results - last 24 hr 04/17/21 04/17/21 04/17/21 05:56 07:26 11:15 Sodium 132 L Potassium 4.9 Chloride 97 Carbon Dioxide 19 L Anion Gap 21 H BUN 29 H Creatinine 5.96 H* Estim Creat Clear Calc 9.6 Estimated GFR 7 POC Glucose 114 192 H Random Glucose 129 H Calcium 7.7 L D 04/17/21 04/17/21 16:21 20:03 Sodium Potassium Chloride Carbon Dioxide Anion Gap BUN Creatinine Estim Creat Clear Calc Estimated GFR POC Glucose 259 H 209 H Random Glucose Calcium Procedures Date of Service Date of Service: 04/17/21 Assessment & Plan Assessment and plan (1) End-stage renal disease (ESRD): Status: Acute (2) Anemia in chronic kidney disease: Status: Acute (3) Volume overload: Status: Acute Assessment and Plan: ESRD Recent VANDANA: rapid loss of renal func over the past 3 months Scr 3.0 to now 9 without obvious explanation--most c/w prog CKD and now ESRD Recent Renal Bx : limited sample and significant glomerulosclerosis and no tissue for? IF and EM not suggestive of Im-Cx mediated GN;prior sero unrevealing;? -CHF _ missed part of HD Rx on Sunday -Hyperkalemia Had HD Yesterday Next HD in AM Vol removal as tolerated with Albuminh Continue BP meds 2 G Na / 2G K diet Fluid restriction Can change IV Bumex to PO Thx Dr. Ardon Time Spent With Patient Time: Total time spent is greater than 50% in coordination of care (as documented) at patient's floor/unit and/or counseling patient: Progress Note: Quality Stroke Does the patient have a stroke diagnosis?: No
[2021-04-18] VITALS (13 sets, daily range): BP systolic 134–169; BP diastolic 56–77; PULSE 73–86; RESP 17–18; TEMP 36.2–37.2; O2SAT 94–100; BMI 37.8
[2021-04-18] MEDS: Heparin Sodium,Porcine 5,000 UNIT/ML VIAL 5000 UNIT SUBCUT ×2 (04:04→16:33)
[2021-04-18 06:00] LABS: MANUAL DIFF FLAG NO
[2021-04-18 06:07] LABS: Basophils Percent Auto 0.1 % (0-2); Eosinophils Percent Auto 0.4 % (0-4); Hemoglobin 8.2 g/dl (12.0-16.0); Imm Gran Abs Auto 0.14 X10*3/uL (0.00-0.03); Imm Gran Pct Auto 1.4 % (0.0-0.4); Lymphocytes Absolute Auto 1.7 X10*3/uL (1.2-4.9); Lymphocytes Percent Auto 16.2 % (20-40); Mean Corpuscular HGB Conc 30.4 g/dl (31.0-35.0); Mean Corpuscular Hemoglobin 28.3 pg (27.0-33.0); Mean Corpuscular Volume 93.1 fL (80.0-98.0); Mean Platelet Volume 9.7 fL (9.4-12.3); Monocytes Absolute Auto 0.7 X10*3/uL (0.1-1.2); Neutrophils Absolute Auto 7.7 x10*3/uL (2.0-8.3); Neutrophils Percent Auto 74.9 % (45-73); Platelet Count 261 X10*3/uL (160-400); Red Cell Distribution Width 17.2 % (11.0-16.0); White Blood Count 10.3 X10*3/uL (4.8-10.8)
[2021-04-18 06:24] LABS: B Type Natriuretic Peptide 968 pg/mL (<100)
[2021-04-18 07:15] LABS: Glucose, Whole Blood 171 mg/dL (60-115)
[2021-04-18] MEDS: Aspirin Enteric Coated 81 MG TABLET.DR PO (08:23)
[2021-04-18] MEDS: cloNIDine HCL 0.1 MG TABLET PO ×3 (08:23→19:40)
[2021-04-18] MEDS: Escitalopram Oxalate 5 MG TABLET PO (08:24)
[2021-04-18] MEDS: Buprenorphine/Naloxone 8/2 mg FILM 1 FILM SUBLINGUAL ×2 (08:24→19:41)
[2021-04-18] MEDS: predniSONE 20 MG TABLET 40 MG PO (08:24)
[2021-04-18] MEDS: Insulin Glargine,Hum.rec.anlog 100 UNIT/ML 10 ML VIAL 12 UNIT SUBCUT (08:24)
[2021-04-18] MEDS: Insulin Lispro 100 UNIT/ML 3 ML VIAL SUBCUT ×4 (08:24→19:41)
[2021-04-18] MEDS: Multivitamin TABLET 1 TAB PO (08:24)
[2021-04-18] MEDS: 0.9 % Sodium Chloride Flush 3 ML SYRINGE IVFLUSH ×3 (08:25→19:41)
[2021-04-18] MEDS: Nicotine 21 MG PATCH.TD24 TRANSDERMA (08:25)
--- NOTE | 2021-04-18 11:13 | P.PNNP_ITS ---
Subjective Subjective Date of Service: 04/18/21 Principal diagnosis: CHF, ESRD Interval history: Breathing improved and now on RA Physical Exam Vital Signs: Vital Signs: Last Vital Signs Temp 97.9 F 04/18/21 07:12 Pulse 86 04/18/21 08:23 Resp 18 04/18/21 07:12 BP 160/77 H 04/18/21 08:23 Pulse Ox 97 04/18/21 07:12 Body Mass Index 37.8 Objective Data Labs CBC & Chem 7: 04/18/21 05:35 04/17/21 05:56 Labs: Laboratory Results - last 24 hr 04/17/21 04/17/21 04/17/21 11:15 16:21 20:03 WBC RBC Hgb Hct MCV MCH MCHC RDW Plt Count MPV Immature Gran % (Auto) Neut % (Auto) Lymph % (Auto) [place] % (Auto) Eos % (Auto) Baso % (Auto) Lymph # (Auto) [place] # (Auto) Eos # (Auto) Baso # (Auto) Abs Immat Gran (auto) Absolute Neuts (auto) Absolute Nucleated RBC Nucleated RBC % (auto) POC Glucose 192 H 259 H 209 H B-Natriuretic Peptide 04/18/21 04/18/21 04/18/21 05:35 05:35 07:11 WBC 10.3 RBC 2.90 L Hgb 8.2 L Hct 27.0 L MCV 93.1 MCH 28.3 MCHC 30.4 L RDW 17.2 H Plt Count 261 MPV 9.7 Immature Gran % (Auto) 1.4 H Neut % (Auto) 74.9 H Lymph % (Auto) 16.2 L [place] % (Auto) 7.0 Eos % (Auto) 0.4 Baso % (Auto) 0.1 Lymph # (Auto) 1.7 [place] # (Auto) 0.7 Eos # (Auto) 0.0 Baso # (Auto) 0.0 Abs Immat Gran (auto) 0.14 H Absolute Neuts (auto) 7.7 Absolute Nucleated RBC 0.000 Nucleated RBC % (auto) 0.0 POC Glucose 171 H B-Natriuretic Peptide 968 H Procedures Date of Service Date of Service: 04/18/21 Assessment & Plan Assessment and plan (1) End-stage renal disease (ESRD): Status: Acute (2) Anemia in chronic kidney disease: Status: Acute (3) Volume overload: Status: Acute Assessment and Plan: 1. ESRD: rapid loss of renal fuinc over 12 months and now HSD dependent; 2 sepearte Bx as the first was inconclusive but the second showed C3G but signif chronc changes a nd decision was NOT to treat 2. CHF: hypewrvol and HTN; imporved w Tx 3. HTN: may need furhter incr REC: HD today and pull fluid; d/c planning; momnitor BP as may need incr Dr. Ardon Time Spent With Patient Time: Total time spent is greater than 50% in coordination of care (as documented) at patient's floor/unit and/or counseling patient: Progress Note: Quality Stroke Does the patient have a stroke diagnosis?: No
[2021-04-18] MEDS: Acetaminophen 325 MG TABLET 650 MG PO (11:29)
--- NOTE | 2021-04-18 13:21 | CONS_ITS ---
DATE OF SERVICE: 04/16/2021 REASON FOR CONSULTATION: Consult requested by the medical team to evaluate and help in management of patient with ESRD on hemodialysis, who presented with shortness of breath. HISTORY OF PRESENT ILLNESS: The patient is a 66-year-old female with past medical history of ESRD on hemodialysis, history of hypertension, history of CHF, who presents to the hospital with worsening shortness of breath for 1 day duration and was admitted yesterday. She was apparently dialyzed on Sunday and did not finish her dialysis. She missed some time. She started having shortness of breath and was very worried and became anxious. She had increased fatigue and had leg swelling, decided to come to the hospital for further evaluation. The patient was evaluated and the patient had edema in the lower extremities and chest x-ray showed vascular congestion and she was admitted to the hospital for further evaluation and management. She did not have any fever, chills. There was no chest pain or palpitation. She had respiratory symptoms as mentioned before. No abdominal pain, nausea, vomiting. No dysuria, urgency of urination or frequent urination. REVIEW OF SYSTEMS: As noted above. Other systems reviewed negative. PAST MEDICAL HISTORY: History of ESRD on hemodialysis on Sunday, Sunday, Sunday; history of CHF, constipation, type 2 diabetes mellitus, diastolic heart failure, hypertension, normocytic normochromic anemia. FAMILY HISTORY: Significant for hypertension. PAST SURGICAL HISTORY: None significant. PERSONAL AND SOCIAL HISTORY: The patient is a current every day smoker. Smokes cigarettes. Denies alcohol use or recreational drug use. ALLERGIES: THE PATIENT HAS NO KNOWN DRUG ALLERGIES. HOME MEDICATIONS: Include aspirin, Suboxone, clonidine 0.1 t.i.d., diclofenac cream, diltiazem, Colace, escitalopram oxalate, insulin, mirtazapine, multivitamin, tiotropium bromide, trazodone, albuterol, olanzapine, bumetanide 2 mg daily, fluticasone, melatonin, Protonix, vitamin B complex. PHYSICAL EXAMINATION: GENERAL: The patient is resting in the bed in mild distress. VITAL SIGNS: Blood pressure of 167/86, pulse 102, afebrile. HEENT: Shows pupils equal bilaterally and reactive to light. Positive jugular venous distention is noted. NECK: Supple. CARDIOVASCULAR SYSTEM: S1, S2 without rub. RESPIRATORY SYSTEM: Air entry decreased in bases. Bibasilar crepitation. ABDOMEN: Obese, soft. Bowel sounds normal. Left upper quadrant tenderness. No guarding or rigidity. EXTREMITIES: Showed 1+ edema bilaterally. There is no peripheral cyanosis or clubbing. NEURO EXAM: Essentially nonfocal. Venous duplex study done in this admission did not show any evidence of DVT. LABS: Done recently. WBCs were 12.1, hemoglobin 8.3, hematocrit 27, platelets were 259. Sodium 134, potassium 5.7, chloride 97, CO2 21, BUN 42, creatinine 9.07, estimated GFR 6.4, glucose 168. BNP was 1732. IMPRESSION: 1. A 66-year-old female with end-stage renal disease on hemodialysis, admitted with volume overload/congestive heart failure due to noncompliance with dialysis treatment, which should rule out other causes of congestive heart failure. 2. Hypertension. 3. Hyperkalemia due to missed dialysis treatment. 4. Chronic obstructive pulmonary disease. 5. Type 2 diabetes mellitus. 6. Opioid use disorder, on Suboxone. RECOMMENDATIONS: The patient is hypervolemic and hyperkalemic. I have arranged for hemodialysis for the patient at the inpatient dialysis unit. We will try to remove fluid as tolerated and give IV albumin as needed. We will use a low potassium bath during dialysis today. She needs to be on a strict 2 g sodium diet and low potassium diet. I will again dialyze the patient based on the schedule on Sunday. In the meantime, we should continue with the present antihypertensive regimen. Should also continue with the diabetic regimen and follow her blood sugars closely. In regard to anemia, I will give her a dose of erythropoietin 20,000 units subcutaneously. We will also continue with Bumex for now and she is on IV 2 mg daily. Thank you for allowing me to participate in medical management of this patient. MD ANABELLE Henderson/GRACIE / [phone]
[2021-04-18 13:22] LABS: Glucose, Whole Blood 164 mg/dL (60-115)
[2021-04-18] MEDS: hydrALAZINE HCl 50 MG TABLET 100 MG PO ×2 (14:16→19:40)
[2021-04-18] MEDS: dilTIAZem HCL CD 180 MG CAP.ER.24H PO (14:24)
--- NOTE | 2021-04-18 15:07 | P.PNIM_ITS ---
Subjective Subjective Date of Service: 04/18/21 Interval History: History obtained via manager mass, patient is receiving hemodialysis, denies chest pain, complaining of back discomfort that is chronic she takes Tylenol with no relief Review of Systems General no headache. no dizziness no fever chills. CVS no chest pain, no palpitation. Respiratory no cough. no sob. Gastrointestinal no nausea no vomiting, no abdominal pain Review of Systems: Yes all other systems are reviewed and are negative Physical Exam Vital Signs: Vital Signs: Last Vital Signs Temp 98.2 F 04/18/21 15:04 Pulse 80 04/18/21 15:04 Resp 18 04/18/21 15:04 BP 137/56 L 04/18/21 15:04 Pulse Ox 98 04/18/21 15:04 Body Mass Index 37.8 General awake alert x3,no acute distress. Neck no JVD. CVS regular rate rhythm, Respiratory lungs basilar rales, no respiratory distress, no wheeze, no rhonchi. Gastrointestinal abdomen soft, nontender, bowel sounds audible, no rigidity. Extremities bilateral pitting edema. Neuro nonfocal Skin no rash Psych appropriate affect Objective Data Active Medications Acetaminophen (Acetaminophen 325 Mg Tablet) 650 mg PO Q6H PRN PRN Reason: Pain, Mild (Pain Scale 1-3) Last Admin: 04/18/21 11:29 Dose: 650 mg Documented by: JESSICA Albuterol Sulfate (Albuterol Sulfate (0.083%) 2.5 Mg/3 Ml Vial.Mookie) 2.5 mg INHALE TID PRN PRN Reason: Wheezing Amlodipine Besylate (Amlodipine Besylate 10 Mg Tablet) 10 mg PO BEDTIME [facility]; Protocol Last Admin: 04/17/21 20:53 Dose: 10 mg Documented by: KELSI Aspirin (Aspirin Enteric Coated 81 Mg Tablet.) 81 mg PO DAILY [facility] Last Admin: 04/18/21 08:23 Dose: 81 mg Documented by: JESSICA Bumetanide (Bumetanide 1 Mg/4 Ml Vial) 2 mg IVPUSH DAILY [facility]; Protocol Last Admin: 04/18/21 14:25 Dose: Not Given Documented by: JESSICA Non-Admin Reason: MD to switch to po Buprenorphine/Naloxone (Buprenorphine/Naloxone 8/2 Mg Film) 1 film SUBLINGUAL BID [facility] Last Admin: 04/18/21 08:24 Dose: 1 film Documented by: JESSICA Clonidine HCl (Clonidine Hcl 0.1 Mg Tablet) 0.1 mg PO TID [facility]; Protocol Last Admin: 04/18/21 14:17 Dose: 0.1 mg Documented by: JESSICA Diltiazem HCl (Diltiazem Hcl Cd 180 Mg Cap.Er.24h) 180 mg PO DAILY [facility]; Protocol Last Admin: 04/18/21 14:24 Dose: 180 mg Documented by: JESSICA Escitalopram Oxalate (Escitalopram Oxalate 5 Mg Tablet) 5 mg PO DAILY [facility] Last Admin: 04/18/21 08:24 Dose: 5 mg Documented by: JESSICA Heparin Sodium (Porcine) (Heparin Sodium,Porcine 5,000 Unit/Ml Vial) 5,000 unit SUBCUT Q12H [facility] Last Admin: 04/18/21 04:04 Dose: 5,000 unit Documented by: ANGELA Hydralazine HCl (Hydralazine Hcl 50 Mg Tablet) 100 mg PO TID [facility]; Protocol Last Admin: 04/18/21 14:28 Dose: Not Given Documented by: JESSICA Non-Admin Reason: last dose late Insulin Glargine (Insulin Glargine,Hum.Rec.Anlog 100 Unit/Ml 10 Ml Vial) 12 unit SUBCUT DAILY [facility] Last Admin: 04/18/21 08:24 Dose: 12 unit Documented by: JESSICA Insulin Human Lispro (Insulin Lispro 100 Unit/Ml 3 Ml Vial) 0 unit SUBCUT QIDA CHS [facility]; Protocol Last Admin: 04/18/21 14:17 Dose: 2 unit Documented by: JESSICA Levalbuterol HCl (Levalbuterol Hcl 1.25 Mg/0.5 Ml Vial.Neb) 1.25 mg INHALE RQ4H WHILE AWAKE [facility] Last Admin: 04/18/21 15:06 Dose: Not Given Documented by: DOLORES Non-Admin Reason: off unit Mirtazapine (Mirtazapine 15 Mg Tablet) 15 mg PO BEDTIME [facility] Last Admin: 04/17/21 20:52 Dose: 15 mg Documented by: KELSI Multivitamins/Vitamin C (Multivitamin Tablet) 1 tab PO DAILY [facility] Last Admin: 04/18/21 08:24 Dose: 1 tab Documented by: JESSICA Nicotine (Nicotine 21 Mg Patch.Td24) 21 mg TRANSDERMA DAILY [facility] Last Admin: 04/18/21 08:25 Dose: 21 mg Documented by: JESSICA Olanzapine (Olanzapine 10 Mg Tablet) 10 mg PO BEDTIME [facility] Last Admin: 04/17/21 20:53 Dose: 10 mg Documented by: KELSI Ondansetron HCl (Ondansetron Hcl 4 Mg/2 Ml Vial) 4 mg IVPUSH Q8H PRN PRN Reason: Nausea and Vomiting Last Admin: 04/16/21 05:14 Dose: 4 mg Documented by: HUBERT Pharmacy Consult (Consult Rx Perform Med Rec) 1 each MISCELLANE ONCE PRN PRN Reason: Consult order Polyethylene Glycol (Polyethylene Glycol 3350 17 Gm Powd.Pack) 17 gm PO DAILY PRN PRN Reason: constipation Prednisone (Prednisone 20 Mg Tablet) 20 mg PO DAILY [facility] Last Admin: 04/18/21 14:25 Dose: Not Given Documented by: JESSICA Non-Admin Reason: given 40 po already this am Sodium Chloride (0.9 % Sodium Chloride Flush 3 Ml Syringe) 3 ml IVFLUSH QSHIFT [facility] Last Admin: 04/18/21 08:25 Dose: 3 ml Documented by: JESSICA Tiotropium [place] (Tiotropium [place] 18 Mcg Cap.W.Dev) 1 puff INHALE RDAILY [facility] Last Admin: 04/18/21 07:55 Dose: 1 puff Documented by: DOLORES Trazodone HCl (Trazodone Hcl 100 Mg Tablet) 100 mg PO BEDTIME [facility] Last Admin: 04/17/21 20:53 Dose: 100 mg Documented by: KELSI Labs CBC & Chem 7: 04/18/21 05:35 04/17/21 05:56 Labs: Laboratory Results - last 24 hr 04/17/21 04/17/21 04/18/21 16:21 20:03 05:35 MCV 93.1 MCH 28.3 MCHC 30.4 L RDW 17.2 H Plt Count 261 MPV 9.7 Immature Gran % (Auto) 1.4 H Neut % (Auto) 74.9 H Lymph % (Auto) 16.2 L [place] % (Auto) 7.0 Eos % (Auto) 0.4 Baso % (Auto) 0.1 Lymph # (Auto) 1.7 [place] # (Auto) 0.7 Eos # (Auto) 0.0 Baso # (Auto) 0.0 Abs Immat Gran (auto) 0.14 H Absolute Neuts (auto) 7.7 Absolute Nucleated RBC 0.000 Nucleated RBC % (auto) 0.0 POC Glucose 259 H 209 H B-Natriuretic Peptide 04/18/21 04/18/21 04/18/21 05:35 07:11 13:16 MCV MCH MCHC RDW Plt Count MPV Immature Gran % (Auto) Neut % (Auto) Lymph % (Auto) [place] % (Auto) Eos % (Auto) Baso % (Auto) Lymph # (Auto) [place] # (Auto) Eos # (Auto) Baso # (Auto) Abs Immat Gran (auto) Absolute Neuts (auto) Absolute Nucleated RBC Nucleated RBC % (auto) POC Glucose 171 H 164 H B-Natriuretic Peptide 968 H Assessment and Plan (1) (HFpEF) heart failure with preserved ejection fraction: Status: Acute (2) Volume overload: Status: Acute (3) HTN (hypertension): Status: Acute (4) Non-compliance: Status: Acute (5) End-stage renal disease (ESRD): Status: Acute Assessment and Plan: 66 years old lady with PMH of ESRD on HD, HTN, CHF among others who presented to the hospital with worsening shortness of breath for 1 day duration. Acute HFpEF Shortness of breath resolved,likely due to fluid overload in ESRD patient CXR showed congestion, rales at bases Elevated BNP 1732 down to 968 today Spoke with Nephrology will have 5 L removed, will change Bumex to by mouth follow clinical course Uncontrolled hypertension Elevated BP on Norvasc, hydralazine, diltiazem and clonidine will follow blood pressure after hemodialysis Monitor blood pressure closely Sinus tachycardia Resolved was likely due to CHF COPD exacerbation Improved continue Levalbuterol , taper prednisone to 20 mg, continue spirivia Type 2 diabetes Blood sugar less than 200 on SSI, Lantus and diabetic diet Opioid use disorder continue Suboxone Anemia. Chronic secondary to ESRD Mild leukocytosis Resolved No evidence of infection chest x-ray showed no infiltrate Chronic pain recommended hot pack, Tylenol and Aspercreme DVT prophylaxis with heparin Quality Stroke Does the patient have a stroke diagnosis?: No VTE Prior VTE?: No VTE Risk Level:: Medical - moderate - high VTE Device Contraindication: Treatment Not Indicated VTE Drug Contraindication: N/A - Med Ordered
[2021-04-18 16:08] LABS: Glucose, Whole Blood 283 mg/dL (60-115)
[2021-04-18 19:35] LABS: Glucose, Whole Blood 189 mg/dL (60-115)
[2021-04-18] MEDS: OLANZapine 10 MG TABLET PO (19:40)
[2021-04-18] MEDS: traZODone HCL 100 MG TABLET PO (19:40)
[2021-04-18] MEDS: Mirtazapine 15 MG TABLET PO (19:40)
[2021-04-18] MEDS: amLODIPine Besylate 10 MG TABLET PO (19:41)
[2021-04-19] VITALS (7 sets, daily range): BP systolic 148–163; BP diastolic 67–74; PULSE 72–81; RESP 18–20; TEMP 35.5–36.9; O2SAT 97–100; BMI 36.8
[2021-04-19] MEDS: Heparin Sodium,Porcine 5,000 UNIT/ML VIAL 5000 UNIT SUBCUT (03:26)
[2021-04-19 07:09] LABS: Glucose, Whole Blood 153 mg/dL (60-115)
[2021-04-19] MEDS: Bumetanide 1 MG TABLET 2 MG PO (09:19)
[2021-04-19] MEDS: Insulin Glargine,Hum.rec.anlog 100 UNIT/ML 10 ML VIAL 12 UNIT SUBCUT (09:19)
[2021-04-19] MEDS: Multivitamin TABLET 1 TAB PO (09:19)
[2021-04-19] MEDS: Aspirin Enteric Coated 81 MG TABLET.DR PO (09:19)
[2021-04-19] MEDS: Escitalopram Oxalate 5 MG TABLET PO (09:19)
[2021-04-19] MEDS: dilTIAZem HCL CD 180 MG CAP.ER.24H PO (09:20)
[2021-04-19] MEDS: predniSONE 20 MG TABLET PO (09:20)
[2021-04-19] MEDS: Buprenorphine/Naloxone 8/2 mg FILM 1 FILM SUBLINGUAL (09:20)
[2021-04-19] MEDS: hydrALAZINE HCl 50 MG TABLET 100 MG PO (09:20)
[2021-04-19] MEDS: Nicotine 21 MG PATCH.TD24 TRANSDERMA (09:21)
[2021-04-19] MEDS: cloNIDine HCL 0.1 MG TABLET PO (09:21)
[2021-04-19 11:29] LABS: Glucose, Whole Blood 122 mg/dL (60-115)
--- NOTE | 2021-04-19 11:49 | PM.PNNEP ---
Subjective Subjective Date of Service: 04/19/21 Principal diagnosis: CHF, ESRD Interval history: Seen and examined, events noted Physical Exam Vital Signs: Vital Signs: Last Vital Signs Temp 96 F L 04/19/21 11:12 Pulse 78 04/19/21 11:25 Resp 20 04/19/21 11:12 BP 156/67 H 04/19/21 11:12 Pulse Ox 97 04/19/21 11:12 Body Mass Index 36.8 Objective Data Labs CBC & Chem 7: 04/18/21 05:35 04/17/21 05:56 Labs: Laboratory Results - last 24 hr 04/18/21 04/18/21 04/18/21 13:16 16:04 19:31 POC Glucose 164 H 283 H 189 H 04/19/21 04/19/21 07:02 11:25 POC Glucose 153 H 122 H Procedures Date of Service Date of Service: 04/19/21 Assessment & Plan Assessment and plan (1) End-stage renal disease (ESRD): Status: Acute (2) Anemia in chronic kidney disease: Status: Acute (3) Volume overload: Status: Acute Assessment and Plan: 1. ESRD: rapid loss of renal fuinc over 12 months and now HD dependent; 2 sepearte Bx as the first was inconclusive but the second showed C3G but signif chronc changes a nd decision was NOT to treat 2. CHF: hypewrvol and HTN; imporved w Tx 3. HTN: may need furhter incr 4. Anemia REC: d/c today and HD tomorrow at outpt unit ( I will arrange) ; momnitor BP as may need incr which can be done as outpt Dr. Ardon Time Spent With Patient Time: Total time spent is greater than 50% in coordination of care (as documented) at patient's floor/unit and/or counseling patient: Time with patient: Greater than 35 minutes Progress Note: Quality Stroke Does the patient have a stroke diagnosis?: No
--- NOTE | 2021-04-19 11:55 | MHC.CM.PN ---
Patient has been medically cleared for dc to home/no skilled services ordered.[facility] services and HD should resume, as before.[facility] picks up Suboxone weekly for Patient.
--- NOTE | 2021-04-19 15:56 | PM.DS ---
DS: Providers Provider Date of Service: 04/19/21 Date of admission: 04/15/21 15:37 Date of discharge: 04/19/21 Primary care physician: Sammy Vicente MD Consults: 04/15/21 15:35 Consult to Nephrology Routine Consulting Provider: Shaun Ardon Reason for consultation: Fluid overload, optimize body weight, Need for dialysis DS: Diagnosis Discharge Diagnosis (1) End-stage renal disease (ESRD): (2) Anemia in chronic kidney disease: (3) Volume overload: Status: Resolved DS: Summary Hospital Course Hospital Course: Chief Complaint: Dyspnea A 66 years old lady with PMH of ESRD on HD, HTN, CHF among others who presented to the hospital with worsening shortness of breath for 1 day duration.? The patient had dialysis on Sunday which seems like she did not finish with reported issues with compliance.? Yesterday she reports started feeling shortness of breath and that makes her very worried and concerned and she becomes anxious.? This morning she reports feeling very tired and shortness of breath and out of energy with feeling of swelling in her legs with decided to come to the hospital for further evaluation. In the emergency she was noted to have edema and chest x-ray showed vascular congestion.? Admitted for further evaluation and treatment. hospital course 66 years old lady with PMH of ESRD on HD, HTN, CHF among others who presented to the hospital with worsening shortness of breath for 1 day duration. Acute HFpEF patient admitted to telemetry unit treated with IV Bumex and underwent hemodialysis 5 L removed, Shortness of breath resolved,was likely due to fluid overload in ESRD patient,Elevated BNP 1732 down to 968 shortness of breath improved, recommend to continue Bumex and hemodialysis. Uncontrolled hypertension improved on home medication continue Norvasc, hydralazine, diltiazem and clonidine Monitor blood pressure closely Sinus tachycardia Resolved was likely due to CHF COPD exacerbation Improved continue Levalbuterol , prednisone to 20 mg, and spirivia Type 2 diabetes blood sugar remains stable continue home medication Lantus and diabetic diet Opioid use disorder continue Suboxone Anemia. Chronic secondary to ESRD Mild leukocytosis Resolved No evidence of infection chest x-ray showed no infiltrate Chronic pain recommended hot pack, Tylenol and Aspercreme Time Spent with Patient Time attestation: Total time spent providing and/or coordinating discharge services: Discharge coordination time: Greater than 30 minutes Quality: Safe Use of Opioids Does Pt have an Active Cancer Diagnosis on the Problem List?: No Quality: Stroke Does the patient have a stroke diagnosis?: No Physical Exam Vital Signs: Vital Signs: Last Vital Signs Temp 96 F L 04/19/21 11:12 Pulse 78 04/19/21 11:25 Resp 20 04/19/21 11:12 BP 156/67 H 04/19/21 11:12 Pulse Ox 97 04/19/21 11:12 BMI result Body Mass Index 36.8 Const: Other: General awake alert x3,no acute distress. Neck no JVD. CVS? regular rate rhythm, Respiratory no respiratory distress, no wheeze, no rhonchi. Gastrointestinal abdomen soft, nontender, bowel sounds audible, no rigidity. Extremities edema. Neuro nonfocal Skin no rash Psych appropriate affect DS: Data Data Completed and Pending Completed studies during hospitalization [Text1]: Procedures Assistance with Respiratory Ventilation, Less than 24 Consecutive Hours, Continuous Positive Airway Pressure (07/27/21) Excision of Left Kidney, Percutaneous Approach, Diagnostic (02/25/21) Excision of Right Kidney, Percutaneous Approach, Diagnostic (10/22/20) Insertion of Infusion Device into Superior Vena Cava, Percutaneous Approach (02/25/21) Insertion of Tunneled Vascular Access Device into Chest Subcutaneous Tissue and Fascia, Percutaneous Approach (02/25/21) Performance of Urinary Filtration, Intermittent, Less than 6 Hours Per Day (08/08/21) Transfusion of Nonautologous Red Blood Cells into Peripheral Vein, Percutaneous Approach (02/25/21) Discharge Plan Discharge Patient Disposition: Home, Self-Care Discharge Diagnosis: Acute heart failure with preserved EF Uncontrolled hypertension Sinus tachycardia Leukocytosis Referrals: Sammy Vicente MD [Primary Care Provider] - 1 Week (Your doctor's office should call you to schedule a follow up appointment. ) Discharge Medications: Continued buprenorphine-naloxone [Suboxone] 8-2 mg film 1 strip sublingual BID 0RF diltiazem HCl 180 mg capsule,extended release 24hr 360 mg PO DAILY 0RF Spiriva with HandiHaler 18 mcg capsule, w/inhalation device 1 cap inhalation DAILY 0RF olanzapine 10 mg tablet 10 mg PO BEDTIME 0RF amlodipine 10 mg Tablet 10 mg PO BEDTIME Qty: 30 0RF Protocol: Hold for SBP< HOLD for SBP < : 90 Rx Instructions: replaces prior dose of 5 mg daily bumetanide 2 mg Tablet 2 mg PO DAILY 0RF pantoprazole 40 mg Tablet,Delayed Release (Dr/Ec) 40 mg PO DAILY 0RF melatonin 5 mg Tablet 5 mg PO BEDTIME PRN (Reason: Sleep) 0RF 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 [employer]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-[facility]arifa Rx 1-60-300 mg-mg-mcg Tablet 1 tab PO DAILY 0RF Flovent HFA 110 mcg/actuation Hfa Aerosol Inhaler 1 puff INHALATION BID 0RF Changed Lantus U-100 Insulin 100 unit/mL Solution 14 unit subcut DAILY Qty: 3 0RF Rx Instructions: replaces prior dose of 24 units daily No Action acetaminophen 500 mg Tablet 500 mg PO Q8H PRN (Reason: Pain, Mild) 0RF triamcinolone acetonide 0.025 % cream 1 appl topical BID 0RF sevelamer carbonate 800 mg tablet 800 mg PO TID 0RF clonidine HCl 0.2 mg tablet 0.2 mg PO BID 0RF hydralazine 50 mg tablet 1 tab PO TID 0RF insulin aspart U-100 [Novolog PenFill U-100 Insulin] 100 unit/mL Cartridge 1 sliding scale dose SUBCUT USEASDIRECTD 0RF Protocol: Insulin Correction Scale Less than or equal to 110 ---- Give (units): 0 111 to 150 Give (units): 0 151 to 200 Give (units): 4 201 to 250 Give (units): 6 251 to 300 Give (units): 8 301 to 350 Give (units): 10 Greater than 350 Give (units): 12 Call MD if Blood Glucose > : 350 trazodone 100 mg tablet 1 - 2 tab PO BEDTIME PRN (Reason: constipation) 0RF metronidazole 500 mg tablet 500 mg PO Q8H 4 Days Qty: 12 0RF levofloxacin 500 mg tablet 500 mg PO Q24H 4 Days Qty: 4 0RF docusate sodium [Colace] 100 mg capsule 100 mg PO DAILY 30 Days Qty: 30 0RF polyethylene glycol 3350 [Miralax] 17 gram/dose powder 17 g PO DAILY 30 Days Qty: 510 0RF sennosides [senna] 8.6 mg tablet 1 - 2 tab PO BEDTIME PRN (Reason: constipation) 0RF Retacrit 10,000 unit/mL Solution 10,000 unit SUBCUT WE@1000 0RF nicotine 21 mg/24 hr patch 24 hour 1 patch topical DAILY 0RF Discharge Orders: Discharge Order (Routine); Ordered 04/19/21 Ordered By: Aracelis Zuleta Diet: diabetic diet and low salt diet Activity on Discharge: As tolerated Stand Alone Forms: Patient Portal Discharge page Care Plan Goals: Dose of insulin reduced from 18 units to 14 units continue to check blood sugars 4 times a day and use sliding scale as before follow strict diabetic diet Health Concerns: Diabetes mellitus, end-stage renal disease, CHF follow diabetic diet low-salt diet and compliance with medication Plan of Treatment: Continue hemodialysis as before, outpatient follow-up with primary care physician and Nephrology in next 7-10 days Assessment: As above Discharge Date/Time: 04/19/21 13:07
== END 2021-04-19 13:07 | disposition home or self-care (01) | DRG 425 ==
LOC: HO.ED 14:20 → HO.EDOVER 15:43 → HO.IMC 22:55
PROVIDERS: Nurse Practitioner Acute Care; Admitting Provider Student in an Organized Health Care Education/Training Program; Emergency Provider Emergency Medicine; PCP Internal Medicine; Visit Provider Hospitalist
DX: E87.70 Fluid overload, unspecified (principal); I50.33 Acute on chronic diastolic (congestive) heart failure; N18.6 End stage renal disease; J44.1 Chronic obstructive pulmonary disease with (acute) exacerbation; E11.22 Type 2 diabetes mellitus with diabetic chronic kidney disease; D63.1 Anemia in chronic kidney disease; I13.2 Hypertensive heart and chronic kidney disease with heart failure and with stage 5 chronic kidney disease, or end stage renal disease; F11.20 Opioid dependence, uncomplicated; F17.210 Nicotine dependence, cigarettes, uncomplicated; D72.829 Elevated white blood cell count, unspecified; Z20.822 Contact with and (suspected) exposure to COVID-19; G89.29 Other chronic pain; Z99.2 Dependence on renal dialysis; R00.0 Tachycardia, unspecified; Z91.15 Patient's noncompliance with renal dialysis; Z91.14 Patient's other noncompliance with medication regimen; Z71.6 Tobacco abuse counseling; Z79.4 Long term (current) use of insulin; Z79.899 Other long term (current) drug therapy
CPT/HCPCS: 36415; 71045; 80048; 80076; 82947; 83735; 83880; 84484; 85025; 87635; 90999; 93005; 93970; 94640; 99285; J2405; J2930

== ENCOUNTER 2021-04-23 12:13 | Observation (INO) | payer MEDICARE, MEDICAID, SELFPAY ==
--- NOTE | ~2021-04-23 | XR_ITS ---
EXAMINATION: RIGHT KNEE AND AP PORTABLE CHEST CLINICAL INFORMATION: Traumatic right knee pain. Shortness of breath. COMPARISON: Chest x-ray of October 21, 2020 and knee study of August 21, 2016 TECHNIQUE: AP and lateral views of the right knee. AP portable view of the chest. FINDINGS: AP and lateral views of the right knee again demonstrate severe narrowing of the medial joint space compartment with marginal sclerosis and spurring. There is mild narrowing of the lateral joint space compartment with some spurring. There is narrowing of the patellofemoral joint with prominent spurring. There is a small right knee effusion. Vascular calcifications are present. AP portable view of the chest demonstrates a right internal jugular dialysis catheter in place with tip in the region of the right atrium. No pneumothorax or pleural effusion. Heart normal size. No evidence of pulmonary edema. No definite confluent parenchymal disease is appreciated. XR/XR knee RT 2V IMPRESSION: No significant acute parenchymal disease within the chest. Severe degenerative change of the right knee similar to study of August 21, 2016.
--- NOTE | ~2021-04-23 | XR_ITS ---
EXAMINATION: RIGHT KNEE AND AP PORTABLE CHEST CLINICAL INFORMATION: Traumatic right knee pain. Shortness of breath. COMPARISON: Chest x-ray of October 21, 2020 and knee study of August 21, 2016 TECHNIQUE: AP and lateral views of the right knee. AP portable view of the chest. FINDINGS: AP and lateral views of the right knee again demonstrate severe narrowing of the medial joint space compartment with marginal sclerosis and spurring. There is mild narrowing of the lateral joint space compartment with some spurring. There is narrowing of the patellofemoral joint with prominent spurring. There is a small right knee effusion. Vascular calcifications are present. AP portable view of the chest demonstrates a right internal jugular dialysis catheter in place with tip in the region of the right atrium. No pneumothorax or pleural effusion. Heart normal size. No evidence of pulmonary edema. No definite confluent parenchymal disease is appreciated. XR/XR chest 1V IMPRESSION: No significant acute parenchymal disease within the chest. Severe degenerative change of the right knee similar to study of August 21, 2016.
--- NOTE | ~2021-04-23 | US_ITS ---
EXAMINATION: US VENOUS ULTRASOUND WITH DOPPLER LOWER EXTREMITY, BILATERAL CLINICAL INFORMATION: Swelling. Edema. COMPARISON: Bilateral venous duplex Doppler exam 04/15/2021 TECHNIQUE: Ultrasound of the deep veins is performed from the hip to the calf with compression sonography and color and pulse Doppler assessment. Spectral analysis with color-flow imaging is performed. FINDINGS: Exam limited. Patient unable to tolerate compressions. Exam limited by body habitus, Patient motion, Patient pain. RIGHT: There is normal venous compression and respiratory variation and augmented flow. The visualized common femoral vein, superficial femoral vein, profunda femoral vein, popliteal vein, and the trifurcation region shows no evidence of deep venous thrombosis. There is no significant popliteal fossa cyst. LEFT: There is normal venous compression and respiratory variation and augmented flow. The visualized common femoral vein, superficial femoral vein, profunda femoral vein, popliteal vein, and the trifurcation region shows no evidence of deep venous thrombosis. There is no significant popliteal fossa cyst. If the patient's symptoms persist, followup ultrasound in 5 days 7 days might be of value to exclude proximal propagation from a non-visualized calf vein. US/US venous duplex LE BI IMPRESSION: No DVT demonstrated in the bilateral lower extremity.
--- NOTE | 2021-04-23 12:21 | ED_ITS ---
HPI - Extremity Problem General Chief complaint: Extremity Injury, Lower Stated complaint: R KNEE PAIN,UNKNOWN IF INJURY,FROM DIALYSIS-NONE T Time Seen by Provider: 04/23/21 12:21 Source: patient Mode of arrival: ambulatory Limitations: no limitations History of Present Illness HPI Narrative: 66-year-old female past medical history significant for hypertension, end-stage renal disease (on hemodyalisis), anemia, heart failure with preserved ejection fraction, CHF presenting to the emergency department VIA EMS from [place] [facility] with complaints of atraumatic knee pain, calf pain and severe shortness of breath X2 days. Patient tells me that she was scheduled to have dialysis today however she showed up and told them that she was not feeling well, so they called an ambulance and she came in today. She tells me she had no trauma to her knee, it is worse with movement better at rest. She also reports severe calf pain and has noted significant lower extremity swelling. She tells me she was recently here but she is feeling worse. Denies chest pain, fevers, chills, nausea, vomiting, abdominal pain MD Complaint: extremity pain, extremity swelling, joint swelling and joint paint Onset (ago): day(s) (2) Pain Consistency: constant Location: right (right knee pain ) Severity scale (1-10): 10 Quality: constant Radiation: none Relieving factors: immobilization Exacerbating factors: range of motion, weight bearing and walking Associated symptoms: shortness of breath Related Data Home Medications Medication Instructions Recorded Confirmed aspirin 81 mg tablet,delayed 81 mg PO DAILY 10/22/20 04/23/21 release buprenorphine 8 mg-naloxone 2 mg 1 strip SUBLINGUAL BID 10/22/20 04/23/21 sublingual film (Suboxone) clonidine HCl 0.1 mg tablet 0.1 mg PO TID 10/22/20 04/23/21 diclofenac sodium 1 % topical gel 2 g TOPICAL QID 10/22/20 04/23/21 diltiazem HCl 180 mg 180 mg PO DAILY 10/22/20 04/23/21 capsule,extended release 24 hr docusate sodium 100 mg capsule 1 - 2 cap PO BEDTIME PRN 10/22/20 04/23/21 escitalopram oxalate 5 mg tablet 5 mg PO DAILY 10/22/20 04/23/21 insulin lispro 100 unit/mL 4 - 12 unit SUBCUT TIDAC 10/22/20 04/23/21 subcutaneous pen (Humalog KwikPen (U-100) Insulin) mirtazapine 15 mg tablet 15 mg PO BEDTIME 10/22/20 04/23/21 multivitamin (One Daily 1 tab PO DAILY 10/22/20 04/23/21 Multivitamin) tiotropium bromide 18 mcg capsule 1 cap INHALATION DAILY 10/22/20 04/23/21 with inhalation device (Spiriva with HandiHaler) trazodone 100 mg tablet 1 - 2 tab PO BEDTIME 10/22/20 04/23/21 albuterol sulfate 1 amp INHALATION TID PRN 02/25/21 04/23/21 olanzapine 10 mg tablet 1 tab PO BEDTIME 02/25/21 04/23/21 bumetanide 2 mg tablet 2 mg PO DAILY 04/15/21 04/23/21 fluticasone propionate 110 1 puff INHALATION BID 04/15/21 04/23/21 mcg/actuation HFA aerosol inhaler (Flovent HFA) melatonin 5 mg tablet 5 mg PO BEDTIME PRN 04/15/21 04/23/21 pantoprazole 40 mg tablet,delayed 40 mg PO DAILY 04/15/21 04/23/21 release vitamin B comp no.3-folic acid 1 1 tab PO DAILY 04/15/21 04/23/21 mg-vit C 60 mg-biotin 300 mcg tablet ([employer]) Previous Rx's Medication Instructions Recorded amlodipine 10 mg tablet 10 mg PO BEDTIME #30 tab 03/07/21 hydralazine 100 mg tablet 100 mg PO TID #90 tab 03/07/21 nicotine 21 mg/24 hr daily 21 mg TRANSDERMAL DAILY #30 ea 03/07/21 transdermal patch polyethylene glycol 3350 17 gram 17 g PO DAILY PRN #30 ea 03/07/21 oral powder packet insulin glargine 100 unit/mL 14 unit (0.14 mL) SUBCUT DAILY #3 04/19/21 subcutaneous solution (Lantus ml U-100 Insulin) Allergies Allergy/AdvReac Type Severity Reaction Status Date / Time No Known Allergies Allergy Mild NOT Verified 12/14/20 11:50 APPLICABLE Review of Systems Review of Systems: Constitutional : No Weight loss, No Fever, No Chills, No Fatigue, No Malaise ENT/Mouth : No sore throat, No Rhinorrhea Eyes: No Eye Pain, No Swelling, No Redness Cardiovascular : No Chest Pain, + SOB, + Dyspnea on Exertion, + Orthopnea, + Edema, No Palpitations Respiratory : No Cough, No Sputum, No Wheezing Gastrointestinal : No Nausea, No Vomiting, No Diarrhea, No Constipation, No abdominal Pain, No Hematochezia, No Melena Genitourinary : No Dysuria, No Urinary Frequency, No Hematuria, Musculoskeletal : + joint pain, No Myalgias, + Joint Swelling Skin : No Skin Lesions, No rash Neuro : No Weakness, No Numbness, No Dizziness, No Headache All other systems reviewed and are negative Yes all other systems are reviewed and are negative [facility] Past Medical History Attestation statement: The following information was validated with the patient. Source: old records reviewed and nursing notes reviewed Medical History Acute kidney injury superimposed on chronic kidney disease VANDANA (acute kidney injury) CHF (congestive heart failure) Constipation Diabetes mellitus Diastolic congestive heart failure Essential hypertension HTN (hypertension) Hypertension Normocytic anemia Surgical History No pertinent past surgical history Family History Family History Other Hypertension Social History Social History Household Members: None Housing: Apartment Do you presently have visiting nurse or other home services: Yes Patient Tobacco Use Status: Current everyday Tobacco user Tobacco use type: Cigarette Cigarette Packs Per Day: 1 Second Hand Smoke Exposure: No Use of substances other than those prescribed or required for medical reasons: No Substance Use Type: Heroin Advance Directives: No Advance Directives Information Provided: Yes service: No Current occupational status: unemployed and disabled Physical Exam Vital Signs: Vital Signs: Last Vital Signs Temp 98.1 F 04/23/21 19:23 Pulse 69 04/23/21 19:23 Resp 16 04/23/21 19:23 BP 150/70 H 04/23/21 19:23 Pulse Ox 97 04/23/21 19:23 BMI result Body Mass Index 41.5 Patients BP noted to be elevated. Appearance: Alert.? Oriented X3.? No acute distress.? Head: Normocephalic, atraumatic, no step-offs or deformities Eyes: Pupils equal, round and reactive to light.? ENT: Pharynx normal.? Neck: Normal inspection.? Neck supple.? CVS: Normal heart rate and rhythm.? Pulses normal.?+ port to right side of chest with out erythema or calor. Respiratory: No respiratory distress.? Breath sounds normal.? Abdomen: Soft and nontender.? Skin: Skin warm and dry.? Normal skin color.? Normal skin turgor.? Extremities: + 3+ nonpitting edema B/L.? No calf ttp. 5/5 strength to bilateral upper and lower extremities + full but painful range of motion to right knee left knee pain free. + pain to palpation over right knee 2+ DP,PT pulses equal and bilateral. Back: No midline tenderness, no C-spine tenderness, full range of motion, no CVA tenderness bilaterally Neuro: Oriented X 3.? No motor deficit.? No sensory deficit. Course Reevaluation(s) Reevaluation #1: EKG without acute ischemia, no peaked T-waves. Troponin is noted to be elevated 185.2, last troponin on 04/15/21 was 100.7 this is likely secondary to end-stage renal disease, and patient not receiving dialysis today. Patient's BNP 929, however she is noted to be chronically elevated. At this time I will hold on diuretics, I will repeat a troponin in 3 hours, and I plan on contacting nephrology did discuss the case with them. Patient's blood pressure has slightly improved 161/73. Pending images. Time: 14:24 Reevaluation #2: X-ray of chest with no acute disease. No acute findings on x- ray of right knee, degenerative changes as noted previously. US venous Doppler negative for DVT. Time: 17:34 Reevaluation #3: Initially patient's symptoms were concerning for a DVT however ultrasound is negative. Unable to explain as to why patient's white blood cell count is elevated. Seeing as though patient has a port, at this time infection is suspected lactic and cultures will be ordered. I will give empiric antibiotics zosyn and vancomycin. Patient's troponin noted to trend downward, patient not having chest pain. Unlikely that this is ACS. No EKG changes significant for acute ischemia Time: 17:35 Additional Reevaluation(s): Spoke to Dr. López who will set up dialysis for tomorrow. Dr. Torres will be admitting patient at this time. MDM - Extremity (Nontraumatic) MDM Narrative Medical decision making narrative: 1223 66 YO F pmhx significant for HTN, ESRD (on hemodyalisis), anemia, heart failure with preserved ejection fraction, CHF presenting to the ED VIA EMS from [facility] w/ complaints of nontraumatic R. Knee pain, bilateral calf pain and tenderness, and progressivly worsening shortness of breath. Upon chart review it appears as though patient was recently discharged from the hospital she was here from April 15, 2021 to April 18, 2021 with heart failure with preserved ejection fracture. It appears as though patient has uncontrolled hypertension she is on Norvasc, hydralazine, diltiazem and clonidine. Patient was also noted to have an elevated BNP at that time, patient currently on Bumex. Upon physical examination patient is noted to be in no acute distress. Lungs are clear. S1-S2 appreciated free of murmurs. Abdomen soft nontender nondistended, there is ecchymosis noted to the abdomen likely secondary to heparin injections. There is 3+ nonpitting edema B/L.? + b/l calf ttp. 5/5 strength to bilateral upper and lower extremities. Full but painful range of motion to right knee left knee pain free. There is pain to palpation over right knee, 2+ DP,PT pulses equal and bilateral. Patient unable to ambulate due to pain. She tells me that she usually uses a walker. Upon review of patient's vital signs she is noted to be hypertensive tells me that she took her blood pressure medicine this morning. She denies vision changes, and headache at this time she also denies dizziness. Plan at this time is to obtain basic labs, x-ray of the right knee, chest x-ray. I will obtain a BNP as patient appears to be fluid overloaded. Will also obtain a troponin is patient is short of breath and has significant risk factors for ACS. Will obtain an EKG. In a bilateral venous duplex of lower extremities Will rule out DVT, ACS, effusions of knee. Lab Data Result diagrams: 04/23/21 13:00 04/23/21 13:00 Labs: Lab Results 1204/23/21 04/23/21 Range/Units 13:00 13:00 13:00 WBC 14.8 H (4.8-10.8) X10*3/uL RBC 3.21 L (4.20-5.50) X10*6/uL Hgb 9.2 L (12.0-16.0) g/dl Hct 28.8 L (37.0-47.0) % MCV 89.7 (80.0-98.0) fL MCH 28.7 (27.0-33.0) pg MCHC 31.9 (31.0-35.0) g/dl RDW 16.2 H (11.0-16.0) % Plt Count 266 (160-400) X10*3/uL MPV 10.0 (9.4-12.3) fL Immature Gran % (Auto) 0.5 H (0.0-0.4) % Neut % (Auto) 82.7 H (45-73) % Lymph % (Auto) 8.2 L (20-40) % [place] % (Auto) 7.2 (2-11) % Eos % (Auto) 1.2 (0-4) % Baso % (Auto) 0.2 (0-2) % Lymph # (Auto) 1.2 (1.2-4.9) X10*3/uL [place] # (Auto) 1.1 (0.1-1.2) X10*3/uL Eos # (Auto) 0.2 (0.0-0.4) X10*3/uL Baso # (Auto) 0.0 (0.0-0.2) X10*3/uL Abs Immat Gran (auto) 0.08 H (0.00-0.03) X10*3/uL Absolute Neuts (auto) 12.2 H (2.0-8.3) x10*3/uL Absolute Nucleated RBC 0.000 (0.0-0.012) X10*3/uL Nucleated RBC % (auto) 0.0 (0.0-0.2) /100WBC D-Dimer High Sensitivty NG/ML Sodium 132 L (135-145) mmol/L Potassium 5.3 H (3.3-5.1) mmol/L Chloride 95 L (96-108) mmol/L Carbon Dioxide 21 L (22-29) mmol/L Anion Gap 21 H (12-20) BUN 40 H (9-16) mg/dL Creatinine 8.20 H* (0.5-1.4) mg/dL Estim Creat Clear Calc 7.4 Estimated GFR 5 Random Glucose 83 (60-115) mg/dL Lactic Acid (0.5-2.0) mmol/L Calcium 9.2 D (8.4-10.2) mg/dL Magnesium 2.0 (1.6-2.6) mg/dL Total Bilirubin 0.5 (0.0-1.0) mg/dL AST 30 (5-31) U/L ALT 30 (0-31) U/L Alkaline Phosphatase 133 H (39-117) U/L Troponin I High Sens (<3.5-17.0) ng/L B-Natriuretic Peptide 929 H (<100) pg/mL Total Protein 7.2 (6.5-8.0) g/dL Albumin 4.0 (3.5-5.0) g/dL COVID-19 (KRYSTINA) (Negative) COVID-19 Clin Com 04/23/21 04/23/21 04/23/21 Range/Units 13:00 13:00 13:00 WBC (4.8-10.8) X10*3/uL RBC (4.20-5.50) X10*6/uL Hgb (12.0-16.0) g/dl Hct (37.0-47.0) % MCV (80.0-98.0) fL MCH (27.0-33.0) pg MCHC (31.0-35.0) g/dl RDW (11.0-16.0) % Plt Count (160-400) X10*3/uL MPV (9.4-12.3) fL Immature Gran % (Auto) (0.0-0.4) % Neut % (Auto) (45-73) % Lymph % (Auto) (20-40) % [place] % (Auto) (2-11) % Eos % (Auto) (0-4) % Baso % (Auto) (0-2) % Lymph # (Auto) (1.2-4.9) X10*3/uL [place] # (Auto) (0.1-1.2) X10*3/uL Eos # (Auto) (0.0-0.4) X10*3/uL Baso # (Auto) (0.0-0.2) X10*3/uL Abs Immat Gran (auto) (0.00-0.03) X10*3/uL Absolute Neuts (auto) (2.0-8.3) x10*3/uL Absolute Nucleated RBC (0.0-0.012) X10*3/uL Nucleated RBC % (auto) (0.0-0.2) /100WBC D-Dimer High Sensitivty 1174 NG/ML Sodium (135-145) mmol/L Potassium (3.3-5.1) mmol/L Chloride (96-108) mmol/L Carbon Dioxide (22-29) mmol/L Anion Gap (12-20) BUN (9-16) mg/dL Creatinine (0.5-1.4) mg/dL Estim Creat Clear Calc Estimated GFR Random Glucose (60-115) mg/dL Lactic Acid (0.5-2.0) mmol/L Calcium (8.4-10.2) mg/dL Magnesium (1.6-2.6) mg/dL Total Bilirubin (0.0-1.0) mg/dL AST (5-31) U/L ALT (0-31) U/L Alkaline Phosphatase (39-117) U/L Troponin I High Sens 185.2 H* (<3.5-17.0) ng/L B-Natriuretic Peptide (<100) pg/mL Total Protein (6.5-8.0) g/dL Albumin (3.5-5.0) g/dL COVID-19 (KRYSTINA) Negative (Negative) COVID-19 Clin Com See Note 04/23/21 04/23/21 Range/Units 17:02 19:04 WBC (4.8-10.8) X10*3/uL RBC (4.20-5.50) X10*6/uL Hgb (12.0-16.0) g/dl Hct (37.0-47.0) % MCV (80.0-98.0) fL MCH (27.0-33.0) pg MCHC (31.0-35.0) g/dl RDW (11.0-16.0) % Plt Count (160-400) X10*3/uL MPV (9.4-12.3) fL Immature Gran % (Auto) (0.0-0.4) % Neut % (Auto) (45-73) % Lymph % (Auto) (20-40) % [place] % (Auto) (2-11) % Eos % (Auto) (0-4) % Baso % (Auto) (0-2) % Lymph # (Auto) (1.2-4.9) X10*3/uL [place] # (Auto) (0.1-1.2) X10*3/uL Eos # (Auto) (0.0-0.4) X10*3/uL Baso # (Auto) (0.0-0.2) X10*3/uL Abs Immat Gran (auto) (0.00-0.03) X10*3/uL Absolute Neuts (auto) (2.0-8.3) x10*3/uL Absolute Nucleated RBC (0.0-0.012) X10*3/uL Nucleated RBC % (auto) (0.0-0.2) /100WBC D-Dimer High Sensitivty NG/ML Sodium (135-145) mmol/L Potassium (3.3-5.1) mmol/L Chloride (96-108) mmol/L Carbon Dioxide (22-29) mmol/L Anion Gap (12-20) BUN (9-16) mg/dL Creatinine (0.5-1.4) mg/dL Estim Creat Clear Calc Estimated GFR Random Glucose (60-115) mg/dL Lactic Acid 0.7 (0.5-2.0) mmol/L Calcium (8.4-10.2) mg/dL Magnesium (1.6-2.6) mg/dL Total Bilirubin (0.0-1.0) mg/dL AST (5-31) U/L ALT (0-31) U/L Alkaline Phosphatase (39-117) U/L Troponin I High Sens 163.9 H* (<3.5-17.0) ng/L B-Natriuretic Peptide (<100) pg/mL Total Protein (6.5-8.0) g/dL Albumin (3.5-5.0) g/dL COVID-19 (KRYSTINA) (Negative) COVID-19 Clin Com Imaging Data X-ray of right knee, and chest: Attestation: I personally reviewed and interpreted this imaging study as follows: Radiologist's impression: XR/XR chest 1V IMPRESSION: No significant acute parenchymal disease within the chest. ? Severe degenerative change of the right knee similar to study of August 21, 2016.? ECG Data Attestation EKG: I personally reviewed and interpreted this ECG as follows: ECG interpretation date: 04/23/21 ECG interpretation time: 12:53 Prior ECG tracings: available for review Interpretation: Ventricular rate of 92, NE normal, QRS normal, QT/QTC normal EKG shows normal sinus rhythm, and slight LVH. No ST elevations or inversions no acute ischemia. No significant changes when compared to previous EKG on April 15, 2021. Critical Care Time Critical Care Time Critical Care Time: Yes Total Critical Care Time: 36 Attestation: I attest to this time spent taking care of the patient, reviewing labs, images, speaking to specialist. Discharge Plan Discharge Clinical Impression: End-stage renal disease (ESRD), Leukocytosis Patient Disposition: Still a Patient Prescriptions: No Action trazodone 100 mg tablet 1 - 2 tab PO BEDTIME RF: 0 docusate sodium 100 mg capsule 1 - 2 cap PO BEDTIME PRN (Reason: constipation) RF: 0 mirtazapine 15 mg tablet 15 mg PO BEDTIME RF: 0 diclofenac sodium 1 % gel 2 g topical QID RF: 0 buprenorphine-naloxone [Suboxone] 8-2 mg film 1 strip sublingual BID RF: 0 multivitamin [One Daily Multivitamin] Tablet 1 tab PO DAILY RF: 0 clonidine HCl 0.1 mg tablet 0.1 mg PO TID RF: 0 diltiazem HCl 180 mg capsule,extended release 24hr 180 mg PO DAILY RF: 0 aspirin 81 mg tablet,delayed release (DR/EC) 81 mg PO DAILY RF: 0 insulin lispro [Humalog KwikPen Insulin] 100 unit/mL insulin pen 4 - 12 unit subcut TIDAC RF: 0 escitalopram oxalate 5 mg tablet 5 mg PO DAILY RF: 0 Spiriva with HandiHaler 18 mcg capsule, w/inhalation device 1 cap inhalation DAILY RF: 0 olanzapine 10 mg tablet 1 tab PO BEDTIME RF: 0 albuterol sulfate 2.5 mg /3 mL (0.083 %) solution for nebulization 1 amp inhalation TID PRN (Reason: Wheezing) RF: 0 amlodipine 10 mg Tablet 10 mg PO BEDTIME Qty: 30 RF: 0 nicotine 21 mg/24 hr Patch 24 Hour 21 mg transdermal DAILY Qty: 30 RF: 0 hydralazine 100 mg tablet 100 mg PO TID Qty: 90 RF: 0 polyethylene glycol 3350 17 gram Powder In Packet 17 g PO DAILY PRN (Reason: constipation) Qty: 30 RF: 0 bumetanide 2 mg Tablet 2 mg PO DAILY RF: 0 pantoprazole 40 mg Tablet,Delayed Release (Dr/Ec) 40 mg PO DAILY RF: 0 melatonin 5 mg Tablet 5 mg PO BEDTIME PRN (Reason: Sleep) RF: 0 [employer] Rx 1-60-300 mg-mg-mcg Tablet 1 tab PO DAILY RF: 0 Flovent HFA 110 mcg/actuation Hfa Aerosol Inhaler 1 puff INHALATION BID RF: 0 Lantus U-100 Insulin 100 unit/mL Solution 14 unit subcut DAILY Qty: 3 RF: 0
[2021-04-23 12:32] VITALS: BP 207/100; BP 230/85; PULSE 90; PULSE 92; RESP 20; TEMP 36.6; O2SAT 96; O2SAT 99; BMI 41.5
--- NOTE | 2021-04-23 12:42 | ECG_ITS ---
Test Reason : LEG PAIN Blood Pressure : / mmHG Vent. Rate : 092 BPM Atrial Rate : 092 BPM P-R Int : 154 ms QRS Dur : 086 ms QT Int : 360 ms P-R-T Axes : 050 -04 038 degrees QTc Int : 445 ms Normal sinus rhythm Moderate voltage criteria for LVH, may be normal variant ( R in aVL , Jona product ) Borderline ECG When compared with ECG of 15-APR-2021 12:24, Criteria for Septal infarct are no longer Present Nonspecific T wave abnormality no longer evident in Lateral leads Referred By: Kartik Leone Electronically Signed By:SALVADOR SARABIA
[2021-04-23 13:06] VITALS: BP 161/73; PULSE 88; RESP 20; O2SAT 100
[2021-04-23 13:06] LABS: MANUAL DIFF FLAG NO
[2021-04-23 13:15] LABS: Basophils Percent Auto 0.2 % (0-2); Eosinophils Absolute Auto 0.2 X10*3/uL (0.0-0.4); Eosinophils Percent Auto 1.2 % (0-4); Hematocrit 28.8 % (37.0-47.0); Hemoglobin 9.2 g/dl (12.0-16.0); Imm Gran Abs Auto 0.08 X10*3/uL (0.00-0.03); Imm Gran Pct Auto 0.5 % (0.0-0.4); Lymphocytes Absolute Auto 1.2 X10*3/uL (1.2-4.9); Lymphocytes Percent Auto 8.2 % (20-40); Mean Corpuscular HGB Conc 31.9 g/dl (31.0-35.0); Mean Corpuscular Hemoglobin 28.7 pg (27.0-33.0); Mean Corpuscular Volume 89.7 fL (80.0-98.0); Monocytes Absolute Auto 1.1 X10*3/uL (0.1-1.2); Monocytes Percent Auto 7.2 % (2-11); Neutrophils Absolute Auto 12.2 x10*3/uL (2.0-8.3); Neutrophils Percent Auto 82.7 % (45-73); Platelet Count 266 X10*3/uL (160-400); Red Blood Count 3.21 X10*6/uL (4.20-5.50); Red Cell Distribution Width 16.2 % (11.0-16.0); White Blood Count 14.8 X10*3/uL (4.8-10.8)
--- NOTE | 2021-04-23 13:17 | PHA.MEDREC ---
MED REC COMPLETE, PATIENT RECENTLY DISCHARGED Pharmacy Consult ? Medication Reconciliation Pharmacy has completed the medication reconciliation.
[2021-04-23 13:20] LABS: COVID-19 Test Negative (Negative)
[2021-04-23 13:28] LABS: D Dimer High Sensitivity 1174 NG/ML
[2021-04-23 13:37] LABS: B Type Natriuretic Peptide 929 pg/mL (<100)
[2021-04-23 14:01] LABS: Troponin-I High Sensitivity 185.2 ng/L (<3.5-17.0)
[2021-04-23 14:02] LABS: Alanine Aminotransferase 30 U/L (0-31); Alkaline Phosphatase 133 U/L (39-117); Anion Gap 21 (12-20); Aspartate Amino Transferase 30 U/L (5-31); Bilirubin Total 0.5 mg/dL (0.0-1.0); Blood Urea Nitrogen 40 mg/dL (9-16); Calcium 9.2 mg/dL (8.4-10.2); Carbon Dioxide 21 mmol/L (22-29); Chloride 95 mmol/L (96-108); Creatinine Clr Calc Pharmacy 7.4; Estimated Glomerular Filt Rate 5; Glucose Random 83 mg/dL (60-115); Potassium 5.3 mmol/L (3.3-5.1); Sodium 132 mmol/L (135-145); Total Protein 7.2 g/dL (6.5-8.0)
[2021-04-23 17:43] LABS: Troponin-I High Sensitivity 163.9 ng/L (<3.5-17.0)
[2021-04-23] MEDS: Piperacillin Sodium/Tazobactam 3.375 GM in 0.9 % Sodium Chloride 50 ML IV (18:56)
[2021-04-23] MEDS: vancomycin HCL 1,250 MG in 0.9 % Sodium Chloride 250 ML 166.67 MG IV (19:01)
[2021-04-23 19:23] VITALS: BP 150/70; PULSE 69; RESP 16; TEMP 36.7; O2SAT 97
--- NOTE | 2021-04-23 19:24 | PC.NURSE ---
pt a&o, no signs of respiratory distress. pt is resting at this time. call cruz with in reach. medicated per Jul.
[2021-04-23 19:26] LABS: Lactic Acid 0.7 mmol/L (0.5-2.0)
--- NOTE | 2021-04-23 22:17 | P.HPHOSP_ITS ---
History of Present Illness Date of Service: 04/23/21 Chief Complaint: knee pain, missed dialysis 66 year old female, Slovenian-speaking only, with past medical history of ESRD on dialysis, CHF, diabetes, HTN, history of normocytic anemia presents the hospital with complaints of right knee pain. history is obtained with the help of an supervisor of research. Patient also reports that she has shortness of breath that has now resolved, she denies any cough,she reports that because of the knee pain she did not go to dialysis today and has missed her session. Usually goes to dialysis Sunday, , Sunday. She reports the knee pain as severe, for the past 3-4 days, denies any injury or trauma to the knee, reports chronic knee pain but has worsened, no fever or chills, no chest pain, no abdominal pain, nausea vomiting, no diarrhea constipation, patient is in general pain all over her body. Review of system otherwise negative on arrival to the ED patient's vitals are significant for temp of 98.1?, heart rate of 69, respiratory rate is 16, blood pressure of 150/70, satting 97% on room air Labs areSignificant for WBC count of 14.8, hemoglobin of 9.2 which is improved from her baseline, sodium of 132, potassium 5.3, BUN 40, creatinine of 8.2 which is higher than her baseline of around 6, troponin of 163 which is chronically elevated, BNP of 929 Knee x-ray shows severe degenerative change of the right knee similar to previous study chest x-ray shows no acute parenchymal disease within the chest patient also underwent venous duplex of the right leg that showed no DVT in the bilateral lower extremities 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 patient to be admitted for dialysis Review of Systems Review of Systems: Yes all other systems are reviewed and are negative [facility] Medical History Acute kidney injury superimposed on chronic kidney disease VANDANA (acute kidney injury) CHF (congestive heart failure) Constipation Diabetes mellitus Diastolic congestive heart failure Essential hypertension HTN (hypertension) Hypertension Normocytic anemia Family History Other Hypertension Surgical History No pertinent past surgical history Social History Household Members: None Housing: Apartment Do you presently have visiting nurse or other home services: Yes Patient Tobacco Use Status: Current everyday Tobacco user Tobacco use type: Cigarette Cigarette Packs Per Day: 1 Second Hand Smoke Exposure: No Use of substances other than those prescribed or required for medical reasons: No Substance Use Type: Heroin Advance Directives: No Advance Directives Information Provided: Yes service: No Current occupational status: unemployed and disabled Meds Allergies Allergy/AdvReac Type Severity Reaction Status Date / Time No Known Allergies Allergy Mild NOT Verified 12/14/20 11:50 APPLICABLE Active Medications: Current Medications Pharmacy Consult (Consult Rx Perform Med Rec) 1 each MISCELLANE ONCE PRN PRN Reason: Consult order Home Medications Medication Instructions Recorded Confirmed Last Taken Type aspirin 81 mg tablet,delayed 81 mg PO DAILY 10/22/20 04/23/21 Unknown History release buprenorphine 8 mg-naloxone 2 mg 1 strip SUBLINGUAL BID 10/22/20 04/23/21 Unknown History sublingual film (Suboxone) clonidine HCl 0.1 mg tablet 0.1 mg PO TID 10/22/20 04/23/21 Unknown History diclofenac sodium 1 % topical gel 2 g TOPICAL QID 10/22/20 04/23/21 Unknown History diltiazem HCl 180 mg 180 mg PO DAILY 10/22/20 04/23/21 Unknown History capsule,extended release 24 hr docusate sodium 100 mg capsule 1 - 2 cap PO BEDTIME PRN 10/22/20 04/23/21 Unknown History escitalopram oxalate 5 mg tablet 5 mg PO DAILY 10/22/20 04/23/21 Unknown History insulin lispro 100 unit/mL 4 - 12 unit SUBCUT TIDAC 10/22/20 04/23/21 Unknown History subcutaneous pen (Humalog KwikPen (U-100) Insulin) mirtazapine 15 mg tablet 15 mg PO BEDTIME 10/22/20 04/23/21 Unknown History multivitamin (One Daily 1 tab PO DAILY 10/22/20 04/23/21 Unknown History Multivitamin) tiotropium bromide 18 mcg capsule 1 cap INHALATION DAILY 10/22/20 04/23/21 Unknown History with inhalation device (Spiriva with HandiHaler) trazodone 100 mg tablet 1 - 2 tab PO BEDTIME 10/22/20 04/23/21 Unknown History albuterol sulfate 1 amp INHALATION TID PRN 02/25/21 04/23/21 Unknown History olanzapine 10 mg tablet 1 tab PO BEDTIME 02/25/21 04/23/21 Unknown History bumetanide 2 mg tablet 2 mg PO DAILY 04/15/21 04/23/21 Unknown History fluticasone propionate 110 1 puff INHALATION BID 04/15/21 04/23/21 Unknown History mcg/actuation HFA aerosol inhaler (Flovent HFA) melatonin 5 mg tablet 5 mg PO BEDTIME PRN 04/15/21 04/23/21 Unknown History pantoprazole 40 mg tablet,delayed 40 mg PO DAILY 04/15/21 04/23/21 Unknown History release vitamin B comp no.3-folic acid 1 1 tab PO DAILY 04/15/21 04/23/21 Unknown History mg-vit C 60 mg-biotin 300 mcg tablet ([facility]) Physical Exam Vital Signs and Narrative: Vital Signs: Last Vital Signs Temp 98.1 F 04/23/21 19:23 Pulse 69 04/23/21 19:23 Resp 16 04/23/21 19:23 BP 150/70 H 04/23/21 19:23 Pulse Ox 97 04/23/21 19:23 BMI result Body Mass Index 41.5 Const: Other: patient is moaning and groaning in with appears to be discomfort, patient reports pain even on minimal touch of her legs or her abdomen General: cooperative and no acute distress Orientation/consciousness: patient oriented x3 Eyes: General: appearance normal, both eyes and all related structures Pupils: Equal, round and reactive pupils present Resp: Effort & Inspection: normal respiratory effort Auscultation: clear to auscultation bilaterally Cardio: Rate: regular rate Rhythm: regular rhythm GI: Palpation (GI): Soft to palpation Auscultation: normal bowel sounds Skin: General skin exam: no rashes or lesions noted Neuro: General: patient oriented x3 Cranial nerves: Yes Equal, round and reactive pupils present Cognition (Neuro): normal cognition Extrem: Other: right knee appears normal, no swelling, erythema, warmth. Patient is tender all over including on the left leg General: Yes normal to inspection and Yes no pedal edema Results Labs CBC and Chem 7: 04/23/21 13:00 04/23/21 13:00 Labs: Laboratory Results - last 24 hr 04/23/21 04/23/21 04/23/21 13:00 13:00 13:00 MCV 89.7 MCH 28.7 MCHC 31.9 RDW 16.2 H Plt Count 266 MPV 10.0 Immature Gran % (Auto) 0.5 H Neut % (Auto) 82.7 H Lymph % (Auto) 8.2 L Kleberg % (Auto) 7.2 Eos % (Auto) 1.2 Baso % (Auto) 0.2 Lymph # (Auto) 1.2 Kleberg # (Auto) 1.1 Eos # (Auto) 0.2 Baso # (Auto) 0.0 Abs Immat Gran (auto) 0.08 H Absolute Neuts (auto) 12.2 H Absolute Nucleated RBC 0.000 Nucleated RBC % (auto) 0.0 D-Dimer High Sensitivty Anion Gap 21 H Estim Creat Clear Calc 7.4 Estimated GFR 5 Random Glucose 83 Lactic Acid Calcium 9.2 D Magnesium 2.0 Total Bilirubin 0.5 AST 30 ALT 30 Alkaline Phosphatase 133 H Troponin I High Sens B-Natriuretic Peptide 929 H Total Protein 7.2 Albumin 4.0 COVID-19 (KRYSTINA) COVID-19 Clin Com 04/23/21 04/23/21 04/23/21 13:00 13:00 13:00 MCV MCH MCHC RDW Plt Count MPV Immature Gran % (Auto) Neut % (Auto) Lymph % (Auto) Kleberg % (Auto) Eos % (Auto) Baso % (Auto) Lymph # (Auto) Kleberg # (Auto) Eos # (Auto) Baso # (Auto) Abs Immat Gran (auto) Absolute Neuts (auto) Absolute Nucleated RBC Nucleated RBC % (auto) D-Dimer High Sensitivty 1174 Anion Gap Estim Creat Clear Calc Estimated GFR Random Glucose Lactic Acid Calcium Magnesium Total Bilirubin AST ALT Alkaline Phosphatase Troponin I High Sens 185.2 H* B-Natriuretic Peptide Total Protein Albumin COVID-19 (KYRSTINA) Negative COVID-19 Clin Com See Note 04/23/21 04/23/21 17:02 19:04 MCV MCH MCHC RDW Plt Count MPV Immature Gran % (Auto) Neut % (Auto) Lymph % (Auto) Kleberg % (Auto) Eos % (Auto) Baso % (Auto) Lymph # (Auto) Kleberg # (Auto) Eos # (Auto) Baso # (Auto) Abs Immat Gran (auto) Absolute Neuts (auto) Absolute Nucleated RBC Nucleated RBC % (auto) D-Dimer High Sensitivty Anion Gap Estim Creat Clear Calc Estimated GFR Random Glucose Lactic Acid 0.7 Calcium Magnesium Total Bilirubin AST ALT Alkaline Phosphatase Troponin I High Sens 163.9 H* B-Natriuretic Peptide Total Protein Albumin COVID-19 (KRYSTINA) COVID-19 Clin Com ECG Interpretation: normal sinus rhythm Imaging Radiologist's Impressions: Impressions Knee X-Ray 04/23/21 13:46 IMPRESSION: No significant acute parenchymal disease within the chest. Severe degenerative change of the right knee similar to study of August 21, 2016. Chest X-Ray 04/23/21 13:48 IMPRESSION: No significant acute parenchymal disease within the chest. Severe degenerative change of the right knee similar to study of August 21, 2016. Venous Duplex 04/23/21 14:58 IMPRESSION: No DVT demonstrated in the bilateral lower extremity. Assessment and Plan (1) Leukocytosis: Qualifiers: Leukocytosis type: unspecified Qualified Code(s): D72.829 - Elevated white blood cell count, unspecified Status: Acute (2) Knee pain: Qualifiers: Chronicity: acute Laterality: right Qualified Code(s): M25.561 - Pain in right knee Status: Acute (3) Non-compliance: Status: Acute (4) End-stage renal disease (ESRD): Status: Acute (5) Elevated troponin: Status: Acute (6) Volume overload: Qualifiers: Hypervolemia type: unspecified Qualified Code(s): E87.70 - Fluid overload, unspecified Status: Acute (7) Hyperkalemia: Status: Acute 66-year-old female Slovenian-speaking, with ESRD on dialysis presents to the hospital with right knee pain found to be in volume overload after missing her dialysis session # knee pain - most likely secondary to DJD - no warmth, no tenderness, no increased edema - Tylenol p.r.n. # volume overload - secondary to missed dialysis and noncompliance - no significant evidence of respiratory distress, chest x-ray negative for any pulmonary congestion - has elevated BNP was she is most likely multifactorial secondary to her end- stage renal disease as well as history of heart failure - patient will undergo dialysis in a.m., nephrology has been consulted # hyperkalemia - secondary to ESRD as well as missed dialysis - no evidence of EKG changes - will admit to telemetry with plan for dialysis in a.m. # elevated troponin - chronically elevated, secondary to end-stage renal disease - denies any chest pain - no EKG changes suggestive of ACS - tele monitor # leukocytosis - most likely reactive - no evidence of acute infection, afebrile, chest x-ray negative, patient is oligo uric therefore unable to obtain much urine at this time - will follow CBC - no antibiotics at this time # hypertension - stable - continue amlodipine # diabetes - continue home insulin - will add low-dose sliding scale insulin - diabetic diet DVT prophylaxis: Heparin subQ Quality Stroke Does the patient have a stroke diagnosis?: No VTE Prior VTE?: No VTE Risk Level:: Medical - moderate - high VTE Device Contraindication: Treatment Not Indicated VTE Drug Contraindication: N/A - Med Ordered
[2021-04-24] VITALS (12 sets, daily range): BP systolic 134–192; BP diastolic 62–90; PULSE 65–89; RESP 16–18; TEMP 36.3–37.1; O2SAT 95–98; BMI 34.2
[2021-04-24] MEDS: OLANZapine 10 MG TABLET PO ×2 (00:56→20:22)
[2021-04-24] MEDS: Mirtazapine 15 MG TABLET PO ×2 (00:57→20:22)
[2021-04-24] MEDS: amLODIPine Besylate 10 MG TABLET PO ×2 (00:58→20:22)
[2021-04-24] MEDS: cloNIDine HCL 0.1 MG TABLET PO ×4 (00:59→20:21)
[2021-04-24] MEDS: hydrALAZINE HCl 50 MG TABLET 100 MG PO ×4 (00:59→20:21)
[2021-04-24] MEDS: Heparin Sodium,Porcine 5,000 UNIT/ML VIAL 5000 UNIT SUBCUT ×2 (01:08→11:12)
--- NOTE | 2021-04-24 03:04 | PC.NURSE ---
Lab called regarding uncollected urine order. pt is a dialysis pt and per pt she produces little to no urine. hospitalist notified
[2021-04-24 07:17] LABS: Glucose, Whole Blood 70 mg/dL (60-115)
[2021-04-24] MEDS: Insulin Glargine,Hum.rec.anlog 100 UNIT/ML 10 ML VIAL 14 UNIT SUBCUT (07:29)
[2021-04-24] MEDS: Bumetanide 1 MG TABLET 2 MG PO (07:30)
[2021-04-24] MEDS: Omeprazole 20 MG CAPSULE.DR PO (07:30)
[2021-04-24] MEDS: dilTIAZem HCL CD 180 MG CAP.ER.24H PO (07:30)
[2021-04-24] MEDS: Multivitamin TABLET 1 TAB PO (07:31)
[2021-04-24] MEDS: Escitalopram Oxalate 5 MG TABLET PO (07:31)
[2021-04-24] MEDS: Aspirin Enteric Coated 81 MG TABLET.DR PO (07:31)
[2021-04-24] MEDS: Buprenorphine/Naloxone 8/2 mg FILM 1 FILM SUBLINGUAL ×2 (08:54→20:20)
[2021-04-24] MEDS: Nicotine 21 MG PATCH.TD24 TRANSDERMA (08:54)
--- NOTE | 2021-04-24 10:14 | P.PNNP_ITS ---
Subjective Subjective Date of Service: 04/24/21 Interval history: Patient seen and examined Physical Exam Vital Signs: Vital Signs: Last Vital Signs Temp 98.1 F 04/23/21 19:23 Pulse 87 04/24/21 07:31 Resp 16 04/24/21 00:39 BP 192/71 H 04/24/21 07:31 Pulse Ox 97 04/24/21 00:39 BMI result Body Mass Index 41.5 Objective Data Labs CBC & Chem 7: 04/23/21 13:00 04/23/21 13:00 Labs: Laboratory Results - last 24 hr 04/23/21 04/23/21 04/23/21 13:00 13:00 13:00 WBC 14.8 H RBC 3.21 L Hgb 9.2 L Hct 28.8 L MCV 89.7 MCH 28.7 MCHC 31.9 RDW 16.2 H Plt Count 266 MPV 10.0 Immature Gran % (Auto) 0.5 H Neut % (Auto) 82.7 H Lymph % (Auto) 8.2 L Mcdonald % (Auto) 7.2 Eos % (Auto) 1.2 Baso % (Auto) 0.2 Lymph # (Auto) 1.2 Mcdonald # (Auto) 1.1 Eos # (Auto) 0.2 Baso # (Auto) 0.0 Abs Immat Gran (auto) 0.08 H Absolute Neuts (auto) 12.2 H Absolute Nucleated RBC 0.000 Nucleated RBC % (auto) 0.0 D-Dimer High Sensitivty Sodium 132 L Potassium 5.3 H Chloride 95 L Carbon Dioxide 21 L Anion Gap 21 H BUN 40 H Creatinine 8.20 H* Estim Creat Clear Calc 7.4 Estimated GFR 5 POC Glucose Random Glucose 83 Lactic Acid Calcium 9.2 D Magnesium 2.0 Total Bilirubin 0.5 AST 30 ALT 30 Alkaline Phosphatase 133 H Troponin I High Sens B-Natriuretic Peptide 929 H Total Protein 7.2 Albumin 4.0 COVID-19 (KRYSTINA) COVID-19 Clin Com 04/23/21 04/23/21 04/23/21 13:00 13:00 13:00 WBC RBC Hgb Hct MCV MCH MCHC RDW Plt Count MPV Immature Gran % (Auto) Neut % (Auto) Lymph % (Auto) Mcdonald % (Auto) Eos % (Auto) Baso % (Auto) Lymph # (Auto) Mcdonald # (Auto) Eos # (Auto) Baso # (Auto) Abs Immat Gran (auto) Absolute Neuts (auto) Absolute Nucleated RBC Nucleated RBC % (auto) D-Dimer High Sensitivty 1174 Sodium Potassium Chloride Carbon Dioxide Anion Gap BUN Creatinine Estim Creat Clear Calc Estimated GFR POC Glucose Random Glucose Lactic Acid Calcium Magnesium Total Bilirubin AST ALT Alkaline Phosphatase Troponin I High Sens 185.2 H* B-Natriuretic Peptide Total Protein Albumin COVID-19 (KRYSTINA) Negative COVID-19 Clin Com See Note 04/23/21 04/23/21 04/24/21 17:02 19:04 07:13 WBC RBC Hgb Hct MCV MCH MCHC RDW Plt Count MPV Immature Gran % (Auto) Neut % (Auto) Lymph % (Auto) Mcdonald % (Auto) Eos % (Auto) Baso % (Auto) Lymph # (Auto) Mcdonald # (Auto) Eos # (Auto) Baso # (Auto) Abs Immat Gran (auto) Absolute Neuts (auto) Absolute Nucleated RBC Nucleated RBC % (auto) D-Dimer High Sensitivty Sodium Potassium Chloride Carbon Dioxide Anion Gap BUN Creatinine Estim Creat Clear Calc Estimated GFR POC Glucose 70 Random Glucose Lactic Acid 0.7 Calcium Magnesium Total Bilirubin AST ALT Alkaline Phosphatase Troponin I High Sens 163.9 H* B-Natriuretic Peptide Total Protein Albumin COVID-19 (KRYSTINA) COVID-19 Clin Com Procedures Date of Service Date of Service: 04/24/21 Assessment & Plan Assessment and plan (1) ESRD (end stage renal disease): Status: Acute (2) Hyperkalemia: Status: Acute (3) Hyponatremia: Status: Acute (4) (HFpEF) heart failure with preserved ejection fraction: Status: Acute (5) Anemia in chronic kidney disease: Status: Acute Assessment and Plan: known ESRD recently started on HD (03/03) usually has HD at [facility] missed dialysis on Sunday started on HD prior kidney biopsy showed glomerular sclerosis, no immune complex disease (but no IF or EM) second recent biopsy showed C3G but significant chronic changes with decision not to treat known heart failure with preserved heart function REC HD today restrict free water intake CRUZITO phosphate binders Thank you Time Spent With Patient Time: Total time spent is greater than 50% in coordination of care (as documented) at patient's floor/unit and/or counseling patient: Progress Note: Quality Stroke Does the patient have a stroke diagnosis?: No
[2021-04-24] MEDS: Lidocaine 4 % Patch ADH..PATCH 1 PATCH TRANSDERMA (11:11)
[2021-04-24 11:16] LABS: Glucose, Whole Blood 90 mg/dL (60-115)
--- NOTE | 2021-04-24 13:16 | P.PNIM_ITS ---
Subjective Subjective Date of Service: 04/24/21 Interval History: esrd Review of Systems Denies any shortness of breath or abdominal pain or fever or chills or nausea or vomiting. Physical Exam Vital Signs: Vital Signs: Last Vital Signs Temp 98.1 F 04/23/21 19:23 Pulse 87 04/24/21 07:31 Resp 18 04/24/21 12:42 BP 164/75 H 04/24/21 12:42 Pulse Ox 98 04/24/21 12:42 BMI result Body Mass Index 41.5 physical exam: Appearance: Alert.? Oriented X3.? not in distress.? cvs: rrr, [id number] res: air entry fair , no rales or wheezin abd: no rebound or guarding ,nt, bs present. ext pulses present , no cyanosis ,Gait well balanced well coordinated. neuro: axo3 , nonfocal. Objective Data Active Medications Acetaminophen (Acetaminophen 325 Mg Tablet) 650 mg PO Q6H PRN PRN Reason: Pain, Mild (Pain Scale 1-3) Albuterol Sulfate (Albuterol Sulfate (0.083%) 2.5 Mg/3 Ml Vial.Neb) 2.5 mg INHALE TID PRN PRN Reason: Wheezing Amlodipine Besylate (Amlodipine Besylate 10 Mg Tablet) 10 mg PO BEDTIME [facility]; Protocol Last Admin: 04/24/21 00:58 Dose: 10 mg Documented by: SHAHEED Aspirin (Aspirin Enteric Coated 81 Mg Tablet.) 81 mg PO DAILY [facility] Last Admin: 04/24/21 07:31 Dose: 81 mg Documented by: SANJAY Bumetanide (Bumetanide 1 Mg Tablet) 2 mg PO DAILY [facility]; Protocol Last Admin: 04/24/21 07:30 Dose: 2 mg Documented by: SANJAY Buprenorphine/Naloxone (Buprenorphine/Naloxone 8/2 Mg Film) 1 film SUBLINGUAL BID PHAN Last Admin: 04/24/21 08:54 Dose: 1 film Documented by: CEZAR Clonidine HCl (Clonidine Hcl 0.1 Mg Tablet) 0.1 mg PO TID PHAN; Protocol Last Admin: 04/24/21 07:30 Dose: 0.1 mg Documented by: SANJAY Dextrose (Dextrose 50 % 25 Gm/50 Ml Vial) 25 gm IVPUSH Q15M PRN; Protocol PRN Reason: per Hypoglycemia Standing Ord. Diltiazem HCl (Diltiazem Hcl Cd 180 Mg Cap.Er.24h) 180 mg PO DAILY [facility]; Protocol Last Admin: 04/24/21 07:30 Dose: 180 mg Documented by: SANJAY Docusate Sodium (Docusate Sodium 100 Mg Capsule) 100 mg PO DAILY PRN PRN Reason: Constipation Escitalopram Oxalate (Escitalopram Oxalate 5 Mg Tablet) 5 mg PO DAILY [facility] Last Admin: 04/24/21 07:31 Dose: 5 mg Documented by: SANJAY Fluticasone Propionate (Fluticasone Propionate 100 Mcg Blst.W.Dev) 1 puff INHALE RBID [facility] Last Admin: 04/24/21 07:23 Dose: Not Given Documented by: SANJAY Non-Admin Reason: Med Not Available Glucose (Glucose Gel 15 Gm Gel..Gram.) 15 gm PO Q15M PRN; Protocol PRN Reason: per Hypoglycemia Standing Ord. Heparin Sodium (Porcine) (Heparin Sodium,Porcine 5,000 Unit/Ml Vial) 5,000 unit SUBCUT Q12H [facility] Last Admin: 04/24/21 11:12 Dose: 5,000 unit Documented by: RONAL Hydralazine HCl (Hydralazine Hcl 50 Mg Tablet) 100 mg PO TID [facility]; Protocol Last Admin: 04/24/21 07:31 Dose: 100 mg Documented by: SANJAY Insulin Glargine (Insulin Glargine,Hum.Rec.Anlog 100 Unit/Ml 10 Ml Vial) 14 unit SUBCUT DAILY [facility] Last Admin: 04/24/21 07:29 Dose: 14 unit Documented by: SANJAY Insulin Human Lispro (Insulin Lispro 100 Unit/Ml 3 Ml Vial) 0 unit SUBCUT Q IDACHS [facility]; Protocol Last Admin: 04/24/21 11:12 Dose: Not Given Documented by: RONAL Non-Admin Reason: No Insulin Coverage Lidocaine (Lidocaine 4 % Patch Adh..Patch) 1 patch TRANSDERMA DAILY [facility]; Protocol Last Admin: 04/24/21 11:11 Dose: 1 patch Documented by: RONAL Melatonin (Melatonin 3 Mg Tablet) 6 mg PO BEDTIME PRN PRN Reason: Sleep Mirtazapine (Mirtazapine 15 Mg Tablet) 15 mg PO BEDTIME [facility] Last Admin: 04/24/21 00:57 Dose: 15 mg Documented by: SHAHEED Multivitamins/Vitamin C (Multivitamin Tablet) 1 tab PO DAILY [facility] Last Admin: 04/24/21 07:31 Dose: 1 tab Documented by: SANJAY Nicotine (Nicotine 21 Mg Patch.Td24) 21 mg TRANSDERMA DAILY [facility] Last Admin: 04/24/21 08:54 Dose: 21 mg Documented by: CEZAR Olanzapine (Olanzapine 10 Mg Tablet) 10 mg PO BEDTIME [facility] Last Admin: 04/24/21 00:56 Dose: 10 mg Documented by: SHAHEED Omeprazole (Omeprazole 20 Mg Capsule.Dr) 20 mg PO DAILY [facility] Last Admin: 04/24/21 07:30 Dose: 20 mg Documented by: SANJAY Ondansetron HCl (Ondansetron Hcl 4 Mg/2 Ml Vial) 4 mg IVPUSH Q8H PRN PRN Reason: Nausea and Vomiting Pharmacy Consult (Consult Rx Perform Med Rec) 1 each MISCELLANE ONCE PRN PRN Reason: Consult order Polyethylene Glycol (Polyethylene Glycol 3350 17 Gm Powd.Pack) 17 gm PO DAILY PRN PRN Reason: constipation Sodium Chloride (0.9 % Sodium Chloride Flush 3 Ml Syringe) 3 ml IVFLUSH QSHIFT [facility] Last Admin: 04/24/21 07:23 Dose: Not Given Documented by: SANJAY Non-Admin Reason: See Note Tiotropium [place] (Tiotropium [place] 18 Mcg Cap.W.Dev) 1 puff INHALE DAILY [facility] Last Admin: 04/24/21 07:33 Dose: Not Given Documented by: SANJAY Non-Admin Reason: Med Not Available Trazodone HCl (Trazodone Hcl 100 Mg Tablet) 100 - 200 mg PO BEDTIME [facility] Labs CBC & Chem 7: 04/23/21 13:00 04/23/21 13:00 Labs: Laboratory Results - last 24 hr 04/23/21 04/23/21 04/23/21 13:00 13:00 13:00 MCV 89.7 MCH 28.7 MCHC 31.9 RDW 16.2 H Plt Count 266 MPV 10.0 Immature Gran % (Auto) 0.5 H Neut % (Auto) 82.7 H Lymph % (Auto) 8.2 L [place] % (Auto) 7.2 Eos % (Auto) 1.2 Baso % (Auto) 0.2 Lymph # (Auto) 1.2 [place] # (Auto) 1.1 Eos # (Auto) 0.2 Baso # (Auto) 0.0 Abs Immat Gran (auto) 0.08 H Absolute Neuts (auto) 12.2 H Absolute Nucleated RBC 0.000 Nucleated RBC % (auto) 0.0 D-Dimer High Sensitivty Anion Gap 21 H Estim Creat Clear Calc 7.4 Estimated GFR 5 POC Glucose Random Glucose 83 Lactic Acid Calcium 9.2 D Magnesium 2.0 Total Bilirubin 0.5 AST 30 ALT 30 Alkaline Phosphatase 133 H Troponin I High Sens B-Natriuretic Peptide 929 H Total Protein 7.2 Albumin 4.0 COVID-19 (KRYSTINA) COVID-Expert360 04/23/21 04/23/21 04/23/21 13:00 13:00 13:00 MCV MCH MCHC RDW Plt Count MPV Immature Gran % (Auto) Neut % (Auto) Lymph % (Auto) [place] % (Auto) Eos % (Auto) Baso % (Auto) Lymph # (Auto) [place] # (Auto) Eos # (Auto) Baso # (Auto) Abs Immat Gran (auto) Absolute Neuts (auto) Absolute Nucleated RBC Nucleated RBC % (auto) D-Dimer High Sensitivty 1174 Anion Gap Estim Creat Clear Calc Estimated GFR POC Glucose Random Glucose Lactic Acid Calcium Magnesium Total Bilirubin AST ALT Alkaline Phosphatase Troponin I High Sens 185.2 H* B-Natriuretic Peptide Total Protein Albumin COVID-19 (KRYSTINA) Negative COVID-19 VaxInnate See Note 04/23/21 04/23/21 04/24/21 17:02 19:04 07:13 MCV MCH MCHC RDW Plt Count MPV Immature Gran % (Auto) Neut % (Auto) Lymph % (Auto) [place] % (Auto) Eos % (Auto) Baso % (Auto) Lymph # (Auto) [place] # (Auto) Eos # (Auto) Baso # (Auto) Abs Immat Gran (auto) Absolute Neuts (auto) Absolute Nucleated RBC Nucleated RBC % (auto) D-Dimer High Sensitivty Anion Gap Estim Creat Clear Calc Estimated GFR POC Glucose 70 Random Glucose Lactic Acid 0.7 Calcium Magnesium Total Bilirubin AST ALT Alkaline Phosphatase Troponin I High Sens 163.9 H* B-Natriuretic Peptide Total Protein Albumin COVID-19 (KRYSTINA) COVID-19 Clin Com 04/24/21 11:10 MCV MCH MCHC RDW Plt Count MPV Immature Gran % (Auto) Neut % (Auto) Lymph % (Auto) [place] % (Auto) Eos % (Auto) Baso % (Auto) Lymph # (Auto) [place] # (Auto) Eos # (Auto) Baso # (Auto) Abs Immat Gran (auto) Absolute Neuts (auto) Absolute Nucleated RBC Nucleated RBC % (auto) D-Dimer High Sensitivty Anion Gap Estim Creat Clear Calc Estimated GFR POC Glucose 90 Random Glucose Lactic Acid Calcium Magnesium Total Bilirubin AST ALT Alkaline Phosphatase Troponin I High Sens B-Natriuretic Peptide Total Protein Albumin COVID-19 (KRYSTINA) COVID-19 Clin Com Assessment and Plan (1) ESRD (end stage renal disease): Status: Acute Assessment and Plan: ?66-year-old female? Croatian-speaking, with ESRD on dialysis presents to the hospital with right knee pain found to be in volume overload after missing her dialysis session 1.? knee pain-? most likely secondary to DJD -? no warmth, no tenderness, no increased edema,? Tylenol p.r.n. 2. volume overload-? secondary to missed dialysis and noncompliance no significant evidence of respiratory distress, chest x-ray negative for any pulmonary congestion has elevated BNP possible HD today as per nephro. 3.? hyperkalemia-? secondary to ESRD as well as missed dialysis going for hd today. 4. elevated troponin-? chronically elevated, thought to be secondary to end- stage renal disease -? denies any chest pain, no EKG changes suggestive of ACS -? tele monitor 5.? leukocytosis most likely reactive: no evidence of acute infection, afebrile, chest x-ray negative, patient is oligo uric therefore unable to obtain much urine at this time -? will follow CBC -? no antibiotics at this time 6.? hypertension-? stable -? continue amlodipine 7.? diabetes: fs 70-90's range hold lantus and moniter fs and avoid coverage below 200 mg/dl -? diabetic diet ?DVT prophylaxis: Heparin subQ Quality Stroke Does the patient have a stroke diagnosis?: No VTE Prior VTE?: No VTE Risk Level:: Medical - moderate - high VTE Device Contraindication: Treatment Not Indicated VTE Drug Contraindication: N/A - Med Ordered
--- NOTE | 2021-04-24 13:31 | MHC.CM.PN ---
Patient is presently at HD;CM spoke with Son/Ke @ [phone].Patient lives alone in her apartment and she uses a walker to assist with mobility. Patient has a PCP/Kaila @ [phone], who is with Patient all day. Home/resume [facility] is the goal for dc and CM has initiated and will follow for dc planning.Patient goes to HD [facility] (Son is unaware of which HD facility). PCP is from [facility].
[2021-04-24 13:35] LABS: Anion Gap 19 (12-20); Blood Urea Nitrogen 52 mg/dL (9-16); Calcium 8.7 mg/dL (8.4-10.2); Carbon Dioxide 22 mmol/L (22-29); Chloride 97 mmol/L (96-108); Estimated Glomerular Filt Rate 4; Glucose Random 71 mg/dL (60-115); Potassium 5.2 mmol/L (3.3-5.1); Sodium 133 mmol/L (135-145)
[2021-04-24 14:51] LABS: Hematocrit 27.9 % (37.0-47.0); Hemoglobin 9.1 g/dl (12.0-16.0); Mean Corpuscular HGB Conc 32.6 g/dl (31.0-35.0); Mean Corpuscular Hemoglobin 29.4 pg (27.0-33.0); Mean Corpuscular Volume 90.3 fL (80.0-98.0); Mean Platelet Volume 10.1 fL (9.4-12.3); Platelet Count 238 X10*3/uL (160-400); Red Blood Count 3.09 X10*6/uL (4.20-5.50); Red Cell Distribution Width 16.2 % (11.0-16.0); White Blood Count 9.9 X10*3/uL (4.8-10.8)
[2021-04-24 16:41] LABS: Glucose, Whole Blood 110 mg/dL (60-115)
[2021-04-24] MEDS: Acetaminophen 325 MG TABLET 650 MG PO (16:55)
[2021-04-24] MEDS: 0.9 % Sodium Chloride Flush 3 ML SYRINGE IVFLUSH ×2 (16:56→20:22)
[2021-04-24] MEDS: traZODone HCL 100 MG TABLET PO (20:21)
[2021-04-24 20:25] LABS: Glucose, Whole Blood 171 mg/dL (60-115)
[2021-04-25] VITALS (13 sets, daily range): BP systolic 116–167; BP diastolic 60–78; PULSE 70–78; RESP 16–20; TEMP 36.1–37.1; O2SAT 92–100
[2021-04-25] MEDS: Heparin Sodium,Porcine 5,000 UNIT/ML VIAL 5000 UNIT SUBCUT ×3 (00:08→23:52)
[2021-04-25 07:36] LABS: Glucose, Whole Blood 107 mg/dL (60-115)
[2021-04-25] MEDS: Bumetanide 1 MG TABLET 2 MG PO (08:04)
[2021-04-25] MEDS: dilTIAZem HCL CD 180 MG CAP.ER.24H PO (08:04)
[2021-04-25] MEDS: Aspirin Enteric Coated 81 MG TABLET.DR PO (08:04)
[2021-04-25] MEDS: Escitalopram Oxalate 5 MG TABLET PO (08:04)
[2021-04-25] MEDS: Omeprazole 20 MG CAPSULE.DR PO (08:04)
[2021-04-25] MEDS: hydrALAZINE HCl 50 MG TABLET 100 MG PO ×3 (08:04→20:54)
[2021-04-25] MEDS: Multivitamin TABLET 1 TAB PO (08:04)
[2021-04-25] MEDS: 0.9 % Sodium Chloride Flush 3 ML SYRINGE IVFLUSH ×3 (08:05→23:52)
[2021-04-25] MEDS: cloNIDine HCL 0.1 MG TABLET PO ×3 (08:05→20:53)
[2021-04-25] MEDS: Buprenorphine/Naloxone 8/2 mg FILM 1 FILM SUBLINGUAL ×2 (08:05→20:55)
[2021-04-25] MEDS: Lidocaine 4 % Patch ADH..PATCH 1 PATCH TRANSDERMA (08:05)
--- NOTE | 2021-04-25 08:31 | P.DS_ITS ---
DS: Providers Provider Date of Service: 04/25/21 Date of admission: 04/23/21 22:16 Primary care physician: Unknown Physician Consults: 04/23/21 17:44 Consult to Nephrology Stat Consulting Provider: Miguel López Reason for consultation: Elevated BUN and creatinine 04/24/21 00:16 Consult to Nephrology Routine Consulting Provider: [facility] Reason for consultation: missed dialysis Has provider been notified: No DS: Diagnosis Discharge Diagnosis (1) ESRD (end stage renal disease): Status: Acute DS: Summary Hospital Course Hospital Course: 66 year old female, Moldovan-speaking only, with past medical history of ESRD on dialysis, CHF, diabetes, HTN, history of normocytic anemia presents the hospital with complaints of right knee pain. history is obtained with the help of an conference interpreter.? Patient also reports that she has shortness of breath that has now resolved,? she denies any cough,she reports that because of the knee pain she did not go to dialysis today and has missed her session.? Usually goes to dialysis Sunday, , Sunday.? She reports the knee pain as severe, for the past 3-4 days, denies any injury or trauma to the knee, reports chronic knee pain but has worsened, no fever or chills, no chest pain, no abdominal pain, nausea vomiting, no diarrhea constipation, patient is in general? pain all over her body. ? Review of system otherwise negative ?on arrival to the ED patient's vitals are significant for temp of 98.1?, heart rate of 69, respiratory rate is 16, blood pressure of 150/70, satting 97% on room air Labs areSignificant for WBC count of 14.8, hemoglobin of 9.2 which is improved from her baseline, sodium of 132, potassium 5.3, BUN 40, creatinine of 8.2 which is higher than her baseline of around 6, troponin of 163 which is chronically elevated, BNP of 929 Knee x-ray shows severe degenerative change of the right knee similar to previous study ?chest x-ray shows no acute parenchymal disease within the chest ?patient also underwent venous duplex of the right leg that showed no DVT in the bilateral lower extremities. Hospital course: patient came to the hospital after missing dialysis , also had hyperkalemia- patient received dialysis and seems to be improved afterwards. Further management outpatient , patient was strongly encouraged to comply with her dialysis. Knee pain: Probably related to arthritis continue pain medications and further management out patiently as per PCP. leukocytosis: Seen seems reactive- resolved spontaneously, patient is asymptomatic. Mild elevation of troponin question chronic- patient denies any chest pain, further workup outpatient as per PCP. Above management discussed with the patient in detail length she understand and in agreement with the above plan, time spent 50 minutes and 50% time spent on counseling. Significant findings: As above. Procedures performed: None. Treatment and response: As above. Complications: None. Time Spent with Patient Time attestation: Total time spent providing and/or coordinating discharge services: Discharge coordination time: Greater than 30 minutes Quality: Stroke Does the patient have a stroke diagnosis?: No Physical Exam Vital Signs: Vital Signs: Last Vital Signs Temp 98.0 F 04/25/21 07:26 Pulse 77 04/25/21 08:05 Resp 18 04/25/21 07:26 BP 167/78 H 04/25/21 08:05 Pulse Ox 100 04/25/21 07:26 BMI result Body Mass Index 34.2 ?Appearance: Alert.? Oriented X3.? not in distress.? ENT: Pharynx normal.? Moist mucous membranes. cvs: rrr, [id number] res: air entry fair , no rales or wheezin abd: no rebound or guarding ,nt, bs present. ext pulses present , no cyanosis, knee pain seems improving neuro: axo3 , nonfocal. DS: Data Data Completed and Pending Completed studies during hospitalization [Text1]: Procedures Excision of Left Kidney, Percutaneous Approach, Diagnostic (02/25/21) Excision of Right Kidney, Percutaneous Approach, Diagnostic (10/22/20) Insertion of Infusion Device into Superior Vena Cava, Percutaneous Approach (02/25/21) Insertion of Tunneled Vascular Access Device into Chest Subcutaneous Tissue and Fascia, Percutaneous Approach (02/25/21) Performance of Urinary Filtration, Intermittent, Less than 6 Hours Per Day (04/15/21) Transfusion of Nonautologous Red Blood Cells into Peripheral Vein, Percutaneous Approach (02/25/21) Labs on day of discharge: Laboratory Results - last 24 hr 04/24/21 04/24/21 04/24/21 11:10 12:58 14:14 WBC 9.9 RBC 3.09 L Hgb 9.1 L Hct 27.9 L MCV 90.3 MCH 29.4 MCHC 32.6 RDW 16.2 H Plt Count 238 MPV 10.1 Absolute Nucleated RBC 0.000 Nucleated RBC % (auto) 0.0 Sodium 133 L Potassium 5.2 H Chloride 97 Carbon Dioxide 22 Anion Gap 19 BUN 52 H Creatinine 10.13 H* Estim Creat Clear Calc 6.0 Estimated GFR 4 POC Glucose 90 Random Glucose 71 Calcium 8.7 04/24/21 04/24/21 04/25/21 16:34 20:19 07:25 WBC RBC Hgb Hct MCV MCH MCHC RDW Plt Count MPV Absolute Nucleated RBC Nucleated RBC % (auto) Sodium Potassium Chloride Carbon Dioxide Anion Gap BUN Creatinine Estim Creat Clear Calc Estimated GFR POC Glucose 110 171 H 107 Random Glucose Calcium Preliminary micro results at discharge 04/23/21 19:04 Blood Culture - Preliminary Blood - Venous No growth after 24 hours. 04/23/21 19:04 Blood Culture - Preliminary Blood - Venous No growth after 24 hours. Discharge Plan Discharge Patient Disposition: Home, Self-Care Discharge Diagnosis: esrd missed dialysis , Hyperkalemia Referrals: Physician,Unknown J [Primary Care Provider] - 1 Week Discharge Medications: New lidocaine [Lidocaine Pain Relief] 4 % Adhesive Patch,Medicated 1 patch transdermal DAILY Qty: 7 RF: 0 Continued trazodone 100 mg tablet 1 - 2 tab PO BEDTIME RF: 0 docusate sodium 100 mg capsule 1 - 2 cap PO BEDTIME PRN (Reason: constipation) RF: 0 mirtazapine 15 mg tablet 15 mg PO BEDTIME RF: 0 diclofenac sodium 1 % gel 2 g topical QID RF: 0 buprenorphine-naloxone [Suboxone] 8-2 mg film 1 strip sublingual BID RF: 0 multivitamin [One Daily Multivitamin] Tablet 1 tab PO DAILY RF: 0 clonidine HCl 0.1 mg tablet 0.1 mg PO TID RF: 0 diltiazem HCl 180 mg capsule,extended release 24hr 180 mg PO DAILY RF: 0 aspirin 81 mg tablet,delayed release (DR/EC) 81 mg PO DAILY RF: 0 insulin lispro [Humalog KwikPen Insulin] 100 unit/mL insulin pen 4 - 12 unit subcut TIDAC RF: 0 escitalopram oxalate 5 mg tablet 5 mg PO DAILY RF: 0 Spiriva with HandiHaler 18 mcg capsule, w/inhalation device 1 cap inhalation DAILY RF: 0 olanzapine 10 mg tablet 1 tab PO BEDTIME RF: 0 albuterol sulfate 2.5 mg /3 mL (0.083 %) solution for nebulization 1 amp inhalation TID PRN (Reason: Wheezing) RF: 0 amlodipine 10 mg Tablet 10 mg PO BEDTIME Qty: 30 RF: 0 nicotine 21 mg/24 hr Patch 24 Hour 21 mg transdermal DAILY Qty: 30 RF: 0 hydralazine 100 mg tablet 100 mg PO TID Qty: 90 RF: 0 polyethylene glycol 3350 17 gram Powder In Packet 17 g PO DAILY PRN (Reason: constipation) Qty: 30 RF: 0 bumetanide 2 mg Tablet 2 mg PO DAILY RF: 0 pantoprazole 40 mg Tablet,Delayed Release (Dr/Ec) 40 mg PO DAILY RF: 0 melatonin 5 mg Tablet 5 mg PO BEDTIME PRN (Reason: Sleep) RF: 0 [employer]CH[employer]ING ENGINEER-Sharifa Rx 1-60-300 mg-mg-mcg Tablet 1 tab PO DAILY RF: 0 Flovent HFA 110 mcg/actuation Hfa Aerosol Inhaler 1 puff INHALATION BID RF: 0 Lantus U-100 Insulin 100 unit/mL Solution 14 unit subcut DAILY Qty: 3 RF: 0 Discharge Orders: Discharge Order (Routine); Ordered 04/25/21 Ordered By: Pankaj Calzada Diet: advance to usual diet, diabetic diet, low fat, low cholesterol and low salt diet Activity on Discharge: As tolerated Stand Alone Forms: Patient Portal Discharge page Care Plan Goals: patient came to the hospital after missing dialysis , also had hyperkalemia- patient received dialysis and seems to be improved afterwards. Further management outpatient , patient was strongly encouraged to comply with her dialysis. Knee pain: Probably related to arthritis continue pain medications and further management out patiently as per PCP. leukocytosis: Seen seems reactive- resolved spontaneously, patient is asymptomatic. Mild elevation of troponin question chronic- patient denies any chest pain, further workup outpatient as per PCP. Health Concerns: as above. Plan of Treatment: As above. Assessment: As above.
[2021-04-25 10:16] LABS: Anion Gap 19 (12-20); Blood Urea Nitrogen 30 mg/dL (9-16); Calcium 8.5 mg/dL (8.4-10.2); Carbon Dioxide 23 mmol/L (22-29); Chloride 99 mmol/L (96-108); Creatinine Clr Calc Pharmacy 7.5; Estimated Glomerular Filt Rate 6; Glucose Random 223 mg/dL (60-115); Sodium 136 mmol/L (135-145)
--- NOTE | 2021-04-25 10:47 | P.PNNP_ITS ---
Subjective Subjective Date of Service: 04/26/21 Interval history: esrd Physical Exam Vital Signs: Vital Signs: Last Vital Signs Temp 98.0 F 04/25/21 07:26 Pulse 77 04/25/21 08:05 Resp 18 04/25/21 07:26 BP 167/78 H 04/25/21 08:05 Pulse Ox 100 04/25/21 07:26 BMI result Body Mass Index 34.2 Const: Other: patient is moaning and groaning in with appears to be disco mfort, patient reports pain even on minimal touch of her legs or her abdomen General: cooperative and no acute distress Orientation/consciousness: patient oriented x3 Eyes: General: appearance normal, both eyes and all related structures Pupils: Equal, round and reactive pupils present Resp: Effort & Inspection: normal respiratory effort Auscultation: clear to auscultation bilaterally Cardio: Rate: regular rate Rhythm: regular rhythm GI: Palpation (GI): Soft to palpation Auscultation: normal bowel sounds Skin: General skin exam: no rashes or lesions noted Neuro: General: patient oriented x3 Cranial nerves: Yes Equal, round and reactive pupils present Cognition (Neuro): normal cognition Extrem: Other: right knee appears normal, no swelling, erythema, warmth. Patient is tender all over including on the left leg General: Yes normal to i nspection and Yes no pedal edema Objective Data Labs CBC & Chem 7: 04/24/21 14:14 04/25/21 09:26 Labs: Laboratory Results - last 24 hr 04/24/21 04/24/21 04/24/21 11:10 12:58 14:14 WBC 9.9 RBC 3.09 L Hgb 9.1 L Hct 27.9 L MCV 90.3 MCH 29.4 MCHC 32.6 RDW 16.2 H Plt Count 238 MPV 10.1 Absolute Nucleated RBC 0.000 Nucleated RBC % (auto) 0.0 Sodium 133 L Potassium 5.2 H Chloride 97 Carbon Dioxide 22 Anion Gap 19 BUN 52 H Creatinine 10.13 H* Estim Creat Clear Calc 6.0 Estimated GFR 4 POC Glucose 90 Random Glucose 71 Calcium 8.7 04/24/21 04/24/21 04/25/21 16:34 20:19 07:25 WBC RBC Hgb Hct MCV MCH MCHC RDW Plt Count MPV Absolute Nucleated RBC Nucleated RBC % (auto) Sodium Potassium Chloride Carbon Dioxide Anion Gap BUN Creatinine Estim Creat Clear Calc Estimated GFR POC Glucose 110 171 H 107 Random Glucose Calcium 04/25/21 09:26 WBC RBC Hgb Hct MCV MCH MCHC RDW Plt Count MPV Absolute Nucleated RBC Nucleated RBC % (auto) Sodium 136 Potassium 5.0 Chloride 99 Carbon Dioxide 23 Anion Gap 19 BUN 30 H Creatinine 7.28 H* Estim Creat Clear Calc 7.5 Estimated GFR 6 POC Glucose Random Glucose 223 H Calcium 8.5 Microbiology Microbiology Results: Microbiology 04/23/21 19:04 Blood - Venous Blood Culture - Preliminary No growth after 24 hours. 04/23/21 19:04 Blood - Venous Blood Culture - Preliminary No growth after 24 hours. Procedures Date of Service Date of Service: 04/25/21 Assessment & Plan Assessment and plan (1) ESRD (end stage renal disease): Status: Acute Assessment and Plan: known ESRD recently started on HD (03/03) usually has HD at [facility] missed dialysis on Sunday started on HD prior kidney biopsy showed glomerular sclerosis, no immune complex disease (but no IF or EM) second recent biopsy showed C3G but significant chronic changes with decision not to treat known heart failure with preserved heart function REC HD TTS restrict free water intake CRUZITO phosphate binders Time Spent With Patient Time: Total time spent is greater than 50% in coordination of care (as documented) at patient's floor/unit and/or counseling patient: Time with patient: 15 - 24 minutes Progress Note: Quality Stroke Does the patient have a stroke diagnosis?: No
[2021-04-25 11:35] LABS: Glucose, Whole Blood 223 mg/dL (60-115)
[2021-04-25] MEDS: Insulin Lispro 100 UNIT/ML 3 ML VIAL SUBCUT (12:12)
--- NOTE | 2021-04-25 12:25 | MHC.CM.PN ---
Addendum entered by Aislinn Zaldivar 04/25/21 16:29: CM INFORMED PT HAS BEEN UNABLE TO REACH HER HORTICULTURAL SPECIALTY [employer] FIELD TO PICK HER UP AND LET HER IN HER HOME SHE HAS THE KEYS' CM ATTEMPTED TO REACH THE HORTICULTURAL SPECIALTY [employer]OWER FIELD AT THE NUMBER LISTED [phone], NO ONE ANSWERS AND THERE IS NO OPTION TO LEAVE A VM CM ALSO ATTEMPTED TO REACH PTS SON, IVET [phone], THIS PHONE ALSO HAD NO OPTION TO LEAVE A VM CM CALLED [employer]TS [employer] SALES REPRESENTATIVE [phone], SHE INDICATED THE PT COULD CALL MAINTENANCE TO OPEN THE DOOR BUT IT WOULD BE $50 FOR THEM TO LET HER IN THE HOME THEY HAD LEFT FOR THE DAY SHE REPORTS IF THE PT CAN WAIT UNTIL MORNING SHE CAN ASSIST IN GETTING THE PT INTO HER HOME. SHE REPORTS THEY DO NOT ALWAYS CHARGE RESIDENTS BUT PT HAS LOST MANY KEYS. PT INFORMED AND FEELS SHE WILL BE ABLE TO GET HER HORTICULTURAL SPECIALTY [employer]OWER FIELD TO LET HER IN TOMORROW MORNING SHE IS AWARE IF THE HORTICULTURAL SPECIALTY GROWER FIELD DOES NOT ANSWER, SHE WILL BE TRANSPORTED VIA [facility] AND HAVE TO PAY THE FEE AT HER BUILDING TO HAVE THE DOOR OPENED Original Note: PT CLEARED TO [facility] TODAY WITH RESUMPTION OF H[employer]ICULTURAL [employer]TY [employer] FI[employer] SERVICES. PER CM NOTES, PTS [employer] WILL TRANSPORT AT [facility].
--- NOTE | 2021-04-25 13:50 | CONS_ITS ---
DATE OF SERVICE: 04/24/2021 HISTORY OF PRESENT ILLNESS: I was asked to assist in management of this 66-year-old patient with history of end-stage renal disease, who presented to the hospital with right hip pain and missed dialysis treatment. At the time of the consultation, she reports some shortness of breath. Denies cough. Reports nausea, vomiting, diarrhea, but complains mostly of knee pain. She tells me that she did not do her dialysis. She normally dialyzes on Sunday, , and Sunday. PAST MEDICAL HISTORY: Remarkable for end-stage renal disease, diabetes mellitus, hypertension, diastolic congestive heart failure. MEDICATIONS: As inpatient and outpatient, reviewed. She is not on any medications. SOCIAL HISTORY: She does not smoke. FAMILY HISTORY: Negative for kidney disease. REVIEW OF SYSTEMS: Ten-point review of system was negative for pertinent history of present illness. PHYSICAL EXAMINATION: VITAL SIGNS: Blood pressure 192/71, heart rate 87, respiratory rate 20, afebrile. CONSTITUTIONAL: Looks her stated age. No acute distress. NEUROLOGIC: Alert and awake. HEAD: Atraumatic, normocephalic. NECK: Supple. LUNGS: Decreased breath sounds. CARDIOVASCULAR: S1, S2. No rub. ABDOMEN: Soft, nontender. EXTREMITIES: No peripheral edema. LABORATORY DATA: Showed white count 14.8, hemoglobin 9.2, platelet count is 266. Sodium 132, potassium 5.6, chloride 95, CO2 of 21, BUN 40, creatinine 8.2. IMPRESSION: 1. End-stage renal disease. 2. Hyperkalemia. 3. Hyponatremia. 4. Leukocytosis. 5. Anemia. PLAN: Will be to arrange for hemodialysis today. We will optimize her volume status, have her on a renal diet, resume her phosphate binders and dose Epogen per protocol. We will continue to follow closely along with the medical team. Thank you for allowing me to participate in the care of this patient. MD YULIET Gonzalez/MODL / [phone]
[2021-04-25 16:32] LABS: Glucose, Whole Blood 113 mg/dL (60-115)
--- NOTE | 2021-04-25 16:40 | HO.PM.IMPN ---
Subjective Subjective Date of Service: 04/25/21 Interval History: esrd Review of Systems Denies any shortness of breath or abdominal pain or fever or chills or nausea or vomiting. Physical Exam Vital Signs: Vital Signs: Last Vital Signs Temp 98.8 F 04/25/21 15:46 Pulse 72 04/25/21 16:39 Resp 18 04/25/21 15:46 BP 157/60 H 04/25/21 16:39 Pulse Ox 97 04/25/21 15:46 BMI result Body Mass Index 34.2 Appearance: Alert.? Oriented X3.? not in distress.? cvs: rrr, [id number] res: air entry fair , no rales or wheezin abd: no rebound or guarding ,nt, bs present. ext pulses present , no cyanosis ,Gait well balanced well coordinated. neuro: axo3 , nonfocal Objective Data Active Medications Acetaminophen (Acetaminophen 325 Mg Tablet) 650 mg PO Q6H PRN PRN Reason: Pain, Mild (Pain Scale 1-3) Last Admin: 04/24/21 16:55 Dose: 650 mg Documented by: RUTHY Albuterol Sulfate (Albuterol Sulfate (0.083%) 2.5 Mg/3 Ml Vial.Neb) 2.5 mg INHALE TID PRN PRN Reason: Wheezing Amlodipine Besylate (Amlodipine Besylate 10 Mg Tablet) 10 mg PO BEDTIME [facility]; Protocol Last Admin: 04/24/21 20:22 Dose: 10 mg Documented by: ALLISON Aspirin (Aspirin Enteric Coated 81 Mg Tablet.) 81 mg PO DAILY [facility] Last Admin: 04/25/21 08:04 Dose: 81 mg Documented by: KELSI Bumetanide (Bumetanide 1 Mg Tablet) 2 mg PO DAILY [facility]; Protocol Last Admin: 04/25/21 08:04 Dose: 2 mg Documented by: KELSI Buprenorphine/Naloxone (Buprenorphine/Naloxone 8/2 Mg Film) 1 film SUBLINGUAL BID [facility] Last Admin: 04/25/21 08:05 Dose: 1 film Documented by: KELSI Clonidine HCl (Clonidine Hcl 0.1 Mg Tablet) 0.1 mg PO TID [facility]; Protocol Last Admin: 04/25/21 16:39 Dose: 0.1 mg Documented by: KELSI Dextrose (Dextrose 50 % 25 Gm/50 Ml Vial) 25 gm IVPUSH Q15M PRN; Protocol PRN Reason: per Hypoglycemia Standing Ord. Diltiazem HCl (Diltiazem Hcl Cd 180 Mg Cap.Er.24h) 180 mg PO DAILY [facility]; Protocol Last Admin: 04/25/21 08:04 Dose: 180 mg Documented by: KELSI Docusate Sodium (Docusate Sodium 100 Mg Capsule) 100 mg PO DAILY PRN PRN Reason: Constipation Escitalopram Oxalate (Escitalopram Oxalate 5 Mg Tablet) 5 mg PO DAILY [facility] Last Admin: 04/25/21 08:04 Dose: 5 mg Documented by: KELSI Fluticasone Propionate (Fluticasone Propionate 100 Mcg Blst.W.Dev) 1 puff INHALE RBID [facility] Last Admin: 04/25/21 08:28 Dose: Not Given Documented by: CLARISSA Non-Admin Reason: Med Not Available Glucose (Glucose Gel 15 Gm Gel..Gram.) 15 gm PO Q15M PRN; Protocol PRN Reason: per Hypoglycemia Standing Ord. Heparin Sodium (Porcine) (Heparin Sodium,Porcine 5,000 Unit/Ml Vial) 5,000 unit SUBCUT Q12H [facility] Last Admin: 04/25/21 12:12 Dose: 5,000 unit Documented by: KELSI Hydralazine HCl (Hydralazine Hcl 50 Mg Tablet) 100 mg PO TID [facility]; Protocol Last Admin: 04/25/21 16:39 Dose: 100 mg Documented by: KELSI Insulin Glargine (Insulin Glargine,Hum.Rec.Anlog 100 Unit/Ml 10 Ml Vial) 14 unit SUBCUT DAILY [facility] Last Admin: 04/24/21 07:29 Dose: 14 unit Documented by: SANJAY Insulin Human Lispro (Insulin Lispro 100 Unit/Ml 3 Ml Vial) 0 unit SUBCUT QIDACHS [facility]; Protocol Last Admin: 04/25/21 16:33 Dose: Not Given Documented by: KELSI Non-Admin Reason: No Insulin Coverage Lidocaine (Lidocaine 4 % Patch Adh..Patch) 1 patch TRANSDERMA DAILY [facility]; Protocol Last Admin: 04/25/21 08:05 Dose: 1 patch Documented by: KELSI Melatonin (Melatonin 3 Mg Tablet) 6 mg PO BEDTIME PRN PRN Reason: Sleep Mirtazapine (Mirtazapine 15 Mg Tablet) 15 mg PO BEDTIME [facility] Last Admin: 04/24/21 20:22 Dose: 15 mg Documented by: ALLISON Multivitamins/Vitamin C (Multivitamin Tablet) 1 tab PO DAILY [facility] Last Admin: 04/25/21 08:04 Dose: 1 tab Documented by: KELSI Nicotine (Nicotine 21 Mg Patch.Td24) 21 mg TRANSDERMA DAILY [facility] Last Admin: 04/24/21 08:54 Dose: 21 mg Documented by: CEZAR Olanzapine (Olanzapine 10 Mg Tablet) 10 mg PO BEDTIME [facility] Last Admin: 04/24/21 20:22 Dose: 10 mg Documented by: ALLISON Omeprazole (Omeprazole 20 Mg Capsule.Dr) 20 mg PO DAILY [facility] Last Admin: 04/25/21 08:04 Dose: 20 mg Documented by: KELSI Ondansetron HCl (Ondansetron Hcl 4 Mg/2 Ml Vial) 4 mg IVPUSH Q8H PRN PRN Reason: Nausea and Vomiting Pharmacy Consult (Consult Rx Perform Med Rec) 1 each MISCELLANE ONCE PRN PRN Reason: Consult order Polyethylene Glycol (Polyethylene Glycol 3350 17 Gm Powd.Pack) 17 gm PO DAILY PRN PRN Reason: constipation Sodium Chloride (0.9 % Sodium Chloride Flush 3 Ml Syringe) 3 ml IVFLUSH QSHIFT [facility] Last Admin: 04/25/21 16:40 Dose: 3 ml Documented by: KELSI Tiotropium Palmer (Tiotropium Palmer 18 Mcg Cap.W.Dev) 1 puff INHALE DAILY [facility] Last Admin: 04/25/21 08:25 Dose: 1 puff Documented by: CLARISSA Trazodone HCl (Trazodone Hcl 100 Mg Tablet) 100 - 200 mg PO BEDTIME [facility] Last Admin: 04/24/21 20:21 Dose: 100 mg Documented by: ALLISON Labs CBC & Chem 7: 04/24/21 14:14 04/25/21 09:26 Labs: Laboratory Results - last 24 hr 04/24/21 04/24/21 04/25/21 16:34 20:19 07:25 Anion Gap Estim Creat Clear Calc Estimated GFR POC Glucose 110 171 H 107 Random Glucose Calcium 04/25/21 04/25/21 04/25/21 09:26 11:27 16:28 Anion Gap 19 Estim Creat Clear Calc 7.5 Estimated GFR 6 POC Glucose 223 H 113 Random Glucose 223 H Calcium 8.5 Microbiology Microbiology Results: Microbiology 04/23/21 19:04 Blood Culture - Preliminary Blood - Venous No growth after 24 hours. 04/23/21 19:04 Blood Culture - Preliminary Blood - Venous No growth after 24 hours. Assessment and Plan (1) Hyperkalemia: Status: Acute (2) ESRD (end stage renal disease): Status: Acute Assessment and Plan: 1.patient came to the hospital after missing dialysis , also had hyperkalemia- patient received dialysis and seems to be improved afterwards. Further management outpatient , patient was strongly encouraged to comply with her dialysis. 2.Knee pain: Probably related to arthritis continue pain medications and further management out patiently as per PCP. 3. leukocytosis: Seen seems reactive- resolved spontaneously, patient is asymptomatic. 4. Mild elevation of troponin question chronic- patient denies any chest pain, further workup outpatient as per PCP. 5.? hypertension-? stable,? continue amlodipine 6.? diabetes: fs 100-170s range hold lantus and moniter fs and avoid coverage below 200 mg/dl -? diabetic diet Patient was supposed to go home today- her FAN BLADE TRUER did not answer the phone who has patient's house keys and was her ride- case resolution specialist working on possible discharge in the morning. Quality Stroke Does the patient have a stroke diagnosis?: No VTE Prior VTE?: No VTE Risk Level:: Medical - moderate - high VTE Device Contraindication: Treatment Not Indicated VTE Drug Contraindication: N/A - Med Ordered
[2021-04-25 20:10] LABS: Glucose, Whole Blood 133 mg/dL (60-115)
[2021-04-25] MEDS: OLANZapine 10 MG TABLET PO (20:54)
[2021-04-25] MEDS: amLODIPine Besylate 10 MG TABLET PO (20:54)
[2021-04-25] MEDS: Mirtazapine 15 MG TABLET PO (20:54)
[2021-04-25] MEDS: traZODone HCL 100 MG TABLET PO (20:55)
[2021-04-26 03:33] VITALS: BP 138/67; PULSE 63; RESP 20; TEMP 37; O2SAT 100
[2021-04-26 06:00] VITALS: BMI 34.6
[2021-04-26 07:25] VITALS: BP 165/66; PULSE 74; RESP 18; TEMP 36.2; O2SAT 100
[2021-04-26 07:39] LABS: Glucose, Whole Blood 109 mg/dL (60-115)
--- NOTE | 2021-04-26 09:42 | W.PM.DNNEP ---
Subjective Subjective This patient was seen during dialysis. Interval history: esrd Physical Exam Vital Signs: Vital Signs: Last Vital Signs Temp 97.2 F 04/26/21 07:25 Pulse 74 04/26/21 07:25 Resp 18 04/26/21 07:25 BP 165/66 H 04/26/21 07:25 Pulse Ox 100 04/26/21 07:25 BMI result Body Mass Index 34.6 Const: Other: patient is moaning and groaning in with appears to be discomfort, patient reports pain even on minimal touch of her legs or her abdomen General: cooperative and no acute distress Orientation/consciousness: patient oriented x3 Eyes: General: appearance normal, both eyes and all related structures Pupils: Equal, round and reactive pupils present Resp: Effort & Inspection: normal respiratory effort Auscultation: clear to auscultation bilaterally Cardio: Rate: regular rate Rhythm: regular rhythm GI: Palpation (GI): Soft to palpation Auscultation: normal bowel sounds Skin: General skin exam: no rashes or lesions noted Neuro: General: patient oriented x3 Cranial nerves: Yes Equal, round and reactive pupils present Cognition (Neuro): normal cognition Extrem: Other: right knee appears normal, no swelling, erythema, warmth. Patient is tender all over including on the left leg General: Yes normal to inspection and Yes no pedal edema Assessment & Plan Assessment and plan (1) ESRD (end stage renal disease): Status: Acute Assessment and Plan: known ESRD recently started on HD (03/03) usually has HD at [facility] missed dialysis on Sunday started on HD prior kidney biopsy showed glomerular sclerosis, no immune complex disease (but no IF or EM) second recent biopsy showed C3G but significant chronic changes with decision not to treat known heart failure with preserved heart function REC HD TTS restrict free water intake CRUZITO per protocol phosphate binders Time Spent With Patient Time: Total time spent is greater than 50% in coordination of care (as documented) at patient's floor/unit and/or counseling patient: Procedures Date of Service Date of Service: 04/26/21
--- NOTE | 2021-04-26 11:17 | PM.EVENT ---
Event Note Date of Service: 04/26/21 Event Note: Patient was discharged yesterday and reportedly, ride and her house george could not be found therefore--discharged date remains 04/25/21--See documentation by Dr. Calzada.. No change in medical ocndition overnight, and will be discharged as planned
--- NOTE | 2021-04-26 11:30 | MHC.CM.PN ---
Patient has been medically cleared for dc to home today, self-care. CM was able to speak with Patient's MERCHANDISING PROFESSOR/Kaila and [employer] will provide transportation to home today at 1 PM. AMARJIT has made RN aware.
[2021-04-26 12:00] VITALS: BP 134/66; PULSE 85; RESP 20; TEMP 36.8; O2SAT 96
[2021-04-26] MEDS: Omeprazole 20 MG CAPSULE.DR PO (12:39)
[2021-04-26] MEDS: Aspirin Enteric Coated 81 MG TABLET.DR PO (12:39)
[2021-04-26] MEDS: Escitalopram Oxalate 5 MG TABLET PO (12:39)
[2021-04-26] MEDS: Multivitamin TABLET 1 TAB PO (12:40)
[2021-04-26] MEDS: dilTIAZem HCL CD 180 MG CAP.ER.24H PO (12:40)
[2021-04-26] MEDS: Acetaminophen 325 MG TABLET 650 MG PO (12:40)
[2021-04-26] MEDS: Lidocaine 4 % Patch ADH..PATCH 1 PATCH TRANSDERMA (12:40)
[2021-04-26] MEDS: Bumetanide 1 MG TABLET 2 MG PO (12:40)
[2021-04-26] MEDS: Nicotine 21 MG PATCH.TD24 TRANSDERMA (12:41)
[2021-04-26] MEDS: Buprenorphine/Naloxone 8/2 mg FILM 1 FILM SUBLINGUAL (12:41)
[2021-04-26] MEDS: Heparin Sodium,Porcine 5,000 UNIT/ML VIAL 5000 UNIT SUBCUT (12:42)
[2021-04-26] MEDS: 0.9 % Sodium Chloride Flush 3 ML SYRINGE IVFLUSH (12:42)
[2021-04-26 13:17] LABS: Glucose, Whole Blood 170 mg/dL (60-115)
--- NOTE | 2021-04-29 16:22 | MHC.CM.PN ---
CM RECEIVED CALL FROM [facility] ([place]) REPORTING PT IS ACTIVE W/THEIR SERVICE AND HAS DAILY VNA, CM HAS FAXED D/C SUMMARY TO [phone] PER REQUEST.
== END 2021-04-26 15:06 | disposition home or self-care (01) ==
LOC: HO.ED 20:15 → HO.EDOVER 22:28 → HO.IMC 04-24 11:59
PROVIDERS: Internal Medicine; Physician Assistant; Admitting Provider Internal Medicine; Emergency Provider Emergency Medicine; Visit Provider Internal Medicine
DX: D72.829 Elevated white blood cell count, unspecified (principal); N18.6 End stage renal disease; M25.561 Pain in right knee; N18.9 Chronic kidney disease, unspecified; I13.2 Hypertensive heart and chronic kidney disease with heart failure and with stage 5 chronic kidney disease, or end stage renal disease; I50.30 Unspecified diastolic (congestive) heart failure; E11.22 Type 2 diabetes mellitus with diabetic chronic kidney disease; R11.2 Nausea with vomiting, unspecified; R19.7 Diarrhea, unspecified; E87.5 Hyperkalemia; E87.70 Fluid overload, unspecified; E87.1 Hypo-osmolality and hyponatremia; M79.661 Pain in right lower leg; D63.1 Anemia in chronic kidney disease; E11.65 Type 2 diabetes mellitus with hyperglycemia; R77.8 Other specified abnormalities of plasma proteins; F17.210 Nicotine dependence, cigarettes, uncomplicated; Z20.822 Contact with and (suspected) exposure to COVID-19; Z99.2 Dependence on renal dialysis; Z91.15 Patient's noncompliance with renal dialysis; Z79.4 Long term (current) use of insulin; Z79.899 Other long term (current) drug therapy
CPT/HCPCS: 36415; 71045; 73560; 80048; 80053; 82947; 83605; 83735; 83880; 84484; 85025; 85027; 85379; 87040; 87635; 90999; 93005; 93970; 96365; 96367; 99219; 99284; 99291; 99499; J2543; J3370

== ENCOUNTER 2021-05-03 07:24 | Emergency (ER) | payer MEDICARE, MEDICAID, SELFPAY ==
--- NOTE | ~2021-05-03 | XR_ITS ---
EXAMINATION: XR KNEE, LEFT CLINICAL INFORMATION: Knee pain COMPARISON: Radiographs left knee 08/21/2016 TECHNIQUE: Three views of the left knee. FINDINGS: There is prominent tricompartment osteoarthritis greatest involving the medial knee joint compartment and patellofemoral joint. There is mild genu varus. No erosive change, fracture, or destructive process. No erosive change. There is a large spur versus corticated exostosis again seen from the posterior superior patella 1.1 cm thickness by at least 2.5 cm in length. Trace fluid suprapatellar bursa present. Hoffa's fat pad appears normal. There are scattered atherosclerotic calcifications vasculature. XR/XR knee LT 2V IMPRESSION: Tricompartment osteoarthritis. Trace effusion.
[2021-05-03 07:34] VITALS: BP 166/97; BP 180/80; PULSE 90; PULSE 98; RESP 18; TEMP 36.8; O2SAT 97; O2SAT 99; BMI 28.3
--- NOTE | 2021-05-03 08:09 | ED.EXTPRO ---
HPI - Extremity Problem General Chief complaint: Extremity Problem Stated complaint: knee pain Time Seen by Provider: 05/03/21 08:09 Source: patient Mode of arrival: ambulatory Limitations: no limitations History of Present Illness HPI Narrative: 66 y/o female with history of ESRD on HD T//Sun, CHF, DM, HTN, anemia who is presenting to the ED from home via EMS with 2 days of nontraumatic left sided knee pain. She has a history of chronic bilateral knee pain and was seen here in the emergency department on April 25 with right knee pain. This is in the setting of missing dialysis due to the pain and she required admission for hyperkalemia and volume overload. She is due for dialysis today. She denies any trauma to the knee did not fall or twist it. At home she walks with a walker. Ambulating makes the pain worse. She denies any fever or chills. No redness to the knee. While in the emergency department patient developed dizziness and nausea as well. No chest pain, shortness of breath. MD Complaint: extremity pain Onset (ago): day(s) (2) Pain Consistency: constant Location: left and knee Severity scale (1-10): 8 Quality: aching Radiation: proximal and distal Relieving factors: nothing Exacerbating factors: range of motion, weight bearing and walking Associated symptoms: other (nausea, dizziness, anxiety ) Related Data Home Medications Medication Instructions Recorded Confirmed aspirin 81 mg tablet,delayed 81 mg PO DAILY 10/22/20 04/23/21 release buprenorphine 8 mg-naloxone 2 mg 1 strip SUBLINGUAL BID 10/22/20 04/23/21 sublingual film (Suboxone) clonidine HCl 0.1 mg tablet 0.1 mg PO TID 10/22/20 04/23/21 diclofenac sodium 1 % topical gel 2 g TOPICAL QID 10/22/20 04/23/21 diltiazem HCl 180 mg 180 mg PO DAILY 10/22/20 04/23/21 capsule,extended release 24 hr docusate sodium 100 mg capsule 1 - 2 cap PO BEDTIME PRN 10/22/20 04/23/21 escitalopram oxalate 5 mg tablet 5 mg PO DAILY 10/22/20 04/23/21 insulin lispro 100 unit/mL 4 - 12 unit SUBCUT TIDAC 10/22/20 04/23/21 subcutaneous pen (Humalog KwikPen (U-100) Insulin) mirtazapine 15 mg tablet 15 mg PO BEDTIME 10/22/20 04/23/21 multivitamin (One Daily 1 tab PO DAILY 10/22/20 04/23/21 Multivitamin) tiotropium bromide 18 mcg capsule 1 cap INHALATION DAILY 10/22/20 04/23/21 with inhalation device (Spiriva with HandiHaler) trazodone 100 mg tablet 1 - 2 tab PO BEDTIME 10/22/20 04/23/21 albuterol sulfate 1 amp INHALATION TID PRN 02/25/21 04/23/21 olanzapine 10 mg tablet 1 tab PO BEDTIME 02/25/21 04/23/21 bumetanide 2 mg tablet 2 mg PO DAILY 04/15/21 04/23/21 fluticasone propionate 110 1 puff INHALATION BID 04/15/21 04/23/21 mcg/actuation HFA aerosol inhaler (Flovent HFA) melatonin 5 mg tablet 5 mg PO BEDTIME PRN 04/15/21 04/23/21 pantoprazole 40 mg tablet,delayed 40 mg PO DAILY 04/15/21 04/23/21 release vitamin B comp no.3-folic acid 1 1 tab PO DAILY 04/15/21 04/23/21 mg-vit C 60 mg-biotin 300 mcg tablet (DISCHARGE COORDINATOR-[facility] Rx) Previous Rx's Medication Instructions Recorded amlodipine 10 mg tablet 10 mg PO BEDTIME #30 tab 03/07/21 hydralazine 100 mg tablet 100 mg PO TID #90 tab 03/07/21 nicotine 21 mg/24 hr daily 21 mg TRANSDERMAL DAILY #30 ea 03/07/21 transdermal patch polyethylene glycol 3350 17 gram 17 g PO DAILY PRN #30 ea 03/07/21 oral powder packet insulin glargine 100 unit/mL 14 unit (0.14 mL) SUBCUT DAILY #3 04/19/21 subcutaneous solution (Lantus ml U-100 Insulin) lidocaine 4 % topical patch 1 patch TRANSDERMAL DAILY #7 ea 04/25/21 (Lidocaine Pain Relief) diclofenac sodium 3 % topical gel 1 appl TOPICAL BID #100 g 05/03/21 Allergies Allergy/AdvReac Type Severity Reaction Status Date / Time No Known Allergies Allergy Mild NOT Verified 12/14/20 11:50 APPLICABLE Review of Systems Review of Systems: Constitutional: No Fever, No Chills ENT/Mouth: No sore throat, No Rhinorrhea Cardiovascular: No Chest Pain, No SOB, No Orthopnea, + Edema Respiratory: No Cough, No Sputum, No Wheezing, No dyspnea Gastrointestinal: + Nausea, No Vomiting, No Diarrhea, No abdominal Pain Musculoskeletal: No joint pain, No Myalgias Skin: No Skin Lesions, No rash Neuro: No Weakness, No Numbness, + Dizziness, No Headache Psych: + Anxiety/Panic, No Depression Heme/Lymph: No Bruising, No Lymphadenopathy PMFSH Past Medical History Medical History Acute kidney injury superimposed on chronic kidney disease VANDANA (acute kidney injury) CHF (congestive heart failure) Constipation Diabetes mellitus Diastolic congestive heart failure Essential hypertension HTN (hypertension) Hypertension Normocytic anemia Surgical History No pertinent past surgical history Family History Family History Other Hypertension Social History Social History Household Members: None Housing: Apartment Do you presently have visiting nurse or other home services: Yes Patient Tobacco Use Status: Current everyday Tobacco user Tobacco use type: Cigarette Cigarette Packs Per Day: 1 Second Hand Smoke Exposure: No Substance Use Type: Heroin Advance Directives: Yes Advance Directives on File: Yes Advance Directives Date on File: 04/20/21 service: No Current occupational status: unemployed and disabled Physical Exam Vital Signs: Vital Signs: Last Vital Signs Temp 97.8 F 05/03/21 08:25 Pulse 87 05/03/21 08:25 Resp 20 05/03/21 08:25 BP 185/79 H 05/03/21 08:25 Pulse Ox 100 05/03/21 08:25 BMI result Body Mass Index 28.3 Appearance: Alert. Oriented X3. No acute distress. Eyes: Pupils equal, round and reactive to light. No nystagmus ENT: Pharynx normal. Neck: Normal inspection. Neck supple. CVS: Normal heart rate and rhythm. Pulses normal. Respiratory: No respiratory distress. Breath sounds normal. Abdomen: Softly disteneded, rotund and nontender. +BS x4 Skin: Skin warm and dry. Normal skin color. Normal skin turgor. No rashes. Extremities: 1+ LE edema, slightly worse on the left. normal inspection of bilateral knees, bilateral tenderness throughout. normal passive ROM with pain when at 90 degrees. no erythema or warmth of either knee Neuro: Oriented X 3. No motor deficit. No sensory deficit. Course Course Course Narrative: 66 y/o female with history of ESRD on HD, chronic bilateral knee pain, CHF, HTN who presents with acute on chronic left knee pain. No evidence of septic joint on exam. Both knees are tender which appears to be chronic. XR is pending. She is also c/o nausea and dizziness - will get basic lab workup and EKG. Reevaluation(s) Reevaluation #1: X-ray showing significant osteoarthritis. Will treat with oral Tylenol around the clock and add topical diclofenac for pain. She is advised follow-up with orthopedics for further management. EKG normal sinus no ischemic changes. Lab workup showing her anemia is at baseline. She has some mild hyperkalemia and she is due for dialysis now. She is stable for discharge home with outpatient dialysis now. MDM - Extremity (Nontraumatic) Lab Data Result diagrams: 05/03/21 09:35 05/03/21 09:35 Labs: Lab Results 05/03/21 05/03/21 05/03/21 Range/Units 09:35 09:35 09:35 WBC 8.6 (4.8-10.8) X10*3/uL RBC 3.08 L (4.20-5.50) X10*6/uL Hgb 8.9 L (12.0-16.0) g/dl Hct 27.8 L (37.0-47.0) % MCV 90.3 (80.0-98.0) fL MCH 28.9 (27.0-33.0) pg MCHC 32.0 (31.0-35.0) g/dl RDW 15.8 (11.0-16.0) % Plt Count 219 (160-400) X10*3/uL MPV 9.3 L (9.4-12.3) fL Immature Gran % (Auto) 0.3 (0.0-0.4) % Neut % (Auto) 77.1 H (45-73) % Lymph % (Auto) 12.7 L (20-40) % [place] % (Auto) 8.3 (2-11) % Eos % (Auto) 1.4 (0-4) % Baso % (Auto) 0.2 (0-2) % Lymph # (Auto) 1.1 L (1.2-4.9) X10*3/uL [place] # (Auto) 0.7 (0.1-1.2) X10*3/uL Eos # (Auto) 0.1 (0.0-0.4) X10*3/uL Baso # (Auto) 0.0 (0.0-0.2) X10*3/uL Abs Immat Gran (auto) 0.03 (0.00-0.03) X10*3/uL Absolute Neuts (auto) 6.6 (2.0-8.3) x10*3/uL Absolute Nucleated RBC 0.000 (0.0-0.012) X10*3/uL Nucleated RBC % (auto) 0.0 (0.0-0.2) /100WBC Sodium 131 L (135-145) mmol/L Potassium 5.8 H (3.3-5.1) mmol/L Chloride 96 (96-108) mmol/L Carbon Dioxide 24 (22-29) mmol/L Anion Gap 17 (12-20) BUN 35 H (9-16) mg/dL Creatinine 9.47 H* (0.5-1.4) mg/dL Estim Creat Clear Calc 5.2 Estimated GFR 4 Random Glucose 99 (60-115) mg/dL Calcium 9.3 D (8.4-10.2) mg/dL Total Bilirubin 0.4 (0.0-1.0) mg/dL Direct Bilirubin 0.2 (0.0-0.5) mg/dL AST 20 (5-31) U/L ALT 16 (0-31) U/L Alkaline Phosphatase 135 H (39-117) U/L Total Protein 6.9 (6.5-8.0) g/dL Albumin 3.9 (3.5-5.0) g/dL COVID-19 (KRYSTINA) Negative (Negative) COVID-19 Clin Com See Note ECG Data Attestation EKG: I personally reviewed and interpreted this ECG as follows: ECG interpretation date: 05/03/21 Prior ECG tracings: available for review Interpretation: Normal sinus rhythm, heart rate 93 beats per minute, normal [place] interval, normal QTC, no ST segment elevations or depressions. No peaked T-waves. Critical Care Time Critical Care Time Critical Care Time: No Discharge Plan Discharge Clinical Impression: Bilateral chronic knee pain Osteoarthritis Qualifiers: Osteoarthritis location: knee Osteoarthritis type: primary Laterality: bilateral Qualified Code(s): M17.0 - Bilateral primary osteoarthritis of knee Patient Disposition: Home, Self-Care Instructions: Osteoarthritis (ED), Knee Pain (ED) Additional Instructions: Your x-ray showed osteoarthritis. Recommend tylenol 975 mg every 6 hours. Use the prescribed anti-inflammatory and pain gel onto of your knees as needed. Use the ANIRUDH wrap as needed for compression and support. Recommend following up with Orthopedics for further evaluation. If you develop new or worsening symptoms call 911 or come back to the ER for further evaluation. Prescriptions: New diclofenac sodium 3 % gel 1 appl topical BID Qty: 100 RF: 0 No Action trazodone 100 mg tablet 1 - 2 tab PO BEDTIME RF: 0 docusate sodium 100 mg capsule 1 - 2 cap PO BEDTIME PRN (Reason: constipation) RF: 0 mirtazapine 15 mg tablet 15 mg PO BEDTIME RF: 0 diclofenac sodium 1 % gel 2 g topical QID RF: 0 buprenorphine-naloxone [Suboxone] 8-2 mg film 1 strip sublingual BID RF: 0 multivitamin [One Daily Multivitamin] Tablet 1 tab PO DAILY RF: 0 clonidine HCl 0.1 mg tablet 0.1 mg PO TID RF: 0 diltiazem HCl 180 mg capsule,extended release 24hr 180 mg PO DAILY RF: 0 aspirin 81 mg tablet,delayed release (DR/EC) 81 mg PO DAILY RF: 0 insulin lispro [Humalog KwikPen Insulin] 100 unit/mL insulin pen 4 - 12 unit subcut TIDAC RF: 0 escitalopram oxalate 5 mg tablet 5 mg PO DAILY RF: 0 Spiriva with HandiHaler 18 mcg capsule, w/inhalation device 1 cap inhalation DAILY RF: 0 lidocaine [Lidocaine Pain Relief] 4 % Adhesive Patch,Medicated 1 patch transdermal DAILY Qty: 7 RF: 0 olanzapine 10 mg tablet 1 tab PO BEDTIME RF: 0 albuterol sulfate 2.5 mg /3 mL (0.083 %) solution for nebulization 1 amp inhalation TID PRN (Reason: Wheezing) RF: 0 amlodipine 10 mg Tablet 10 mg PO BEDTIME Qty: 30 RF: 0 nicotine 21 mg/24 hr Patch 24 Hour 21 mg transdermal DAILY Qty: 30 RF: 0 hydralazine 100 mg tablet 100 mg PO TID Qty: 90 RF: 0 polyethylene glycol 3350 17 gram Powder In Packet 17 g PO DAILY PRN (Reason: constipation) Qty: 30 RF: 0 bumetanide 2 mg Tablet 2 mg PO DAILY RF: 0 pantoprazole 40 mg Tablet,Delayed Release (Dr/Ec) 40 mg PO DAILY RF: 0 melatonin 5 mg Tablet 5 mg PO BEDTIME PRN (Reason: Sleep) RF: 0 DISCHARGE COORDINATOR-Sharifa Rx 1-60-300 mg-mg-mcg Tablet 1 tab PO DAILY RF: 0 Flovent HFA 110 mcg/actuation Hfa Aerosol Inhaler 1 puff INHALATION BID RF: 0 Lantus U-100 Insulin 100 unit/mL Solution 14 unit subcut DAILY Qty: 3 RF: 0 Referrals: Rocío Rice PA-C [Physician Hot Wire Glass Tube Cutter] - 2 days (chronic bilateral knee pain) Print Language: Bahraini
[2021-05-03 08:25] VITALS: BP 185/79; PULSE 87; RESP 20; TEMP 36.6; O2SAT 100
--- NOTE | 2021-05-03 08:44 | ECG_ITS ---
Test Reason : dizziness Blood Pressure : / mmHG Vent. Rate : 093 BPM Atrial Rate : 093 BPM P-R Int : 166 ms QRS Dur : 080 ms QT Int : 348 ms P-R-T Axes : 051 -14 036 degrees QTc Int : 432 ms Normal sinus rhythm Normal ECG When compared with ECG of 23-APR-2021 12:53, No significant change was found Referred By: Rose Brooks Electronically Signed By:CRISTIAN REMY MD
[2021-05-03] MEDS: Acetaminophen 325 MG TABLET 975 MG PO (09:45)
[2021-05-03 09:46] LABS: MANUAL DIFF FLAG NO
[2021-05-03 09:48] LABS: Basophils Percent Auto 0.2 % (0-2); Eosinophils Absolute Auto 0.1 X10*3/uL (0.0-0.4); Eosinophils Percent Auto 1.4 % (0-4); Hematocrit 27.8 % (37.0-47.0); Hemoglobin 8.9 g/dl (12.0-16.0); Imm Gran Abs Auto 0.03 X10*3/uL (0.00-0.03); Imm Gran Pct Auto 0.3 % (0.0-0.4); Lymphocytes Absolute Auto 1.1 X10*3/uL (1.2-4.9); Lymphocytes Percent Auto 12.7 % (20-40); Mean Corpuscular Hemoglobin 28.9 pg (27.0-33.0); Mean Corpuscular Volume 90.3 fL (80.0-98.0); Mean Platelet Volume 9.3 fL (9.4-12.3); Monocytes Absolute Auto 0.7 X10*3/uL (0.1-1.2); Monocytes Percent Auto 8.3 % (2-11); Neutrophils Absolute Auto 6.6 x10*3/uL (2.0-8.3); Neutrophils Percent Auto 77.1 % (45-73); Platelet Count 219 X10*3/uL (160-400); Red Blood Count 3.08 X10*6/uL (4.20-5.50); Red Cell Distribution Width 15.8 % (11.0-16.0); White Blood Count 8.6 X10*3/uL (4.8-10.8)
[2021-05-03 10:04] LABS: COVID-19 Test Negative (Negative); IDNOW Serial# 9DD0AD1C
[2021-05-03 10:42] LABS: Alanine Aminotransferase 16 U/L (0-31); Albumin Level 3.9 g/dL (3.5-5.0); Alkaline Phosphatase 135 U/L (39-117); Anion Gap 17 (12-20); Aspartate Amino Transferase 20 U/L (5-31); Bilirubin Direct 0.2 mg/dL (0.0-0.5); Bilirubin Total 0.4 mg/dL (0.0-1.0); Blood Urea Nitrogen 35 mg/dL (9-16); Calcium 9.3 mg/dL (8.4-10.2); Carbon Dioxide 24 mmol/L (22-29); Chloride 96 mmol/L (96-108); Creatinine Clr Calc Pharmacy 5.2; Estimated Glomerular Filt Rate 4; Glucose Random 99 mg/dL (60-115); Potassium 5.8 mmol/L (3.3-5.1); Sodium 131 mmol/L (135-145); Total Protein 6.9 g/dL (6.5-8.0)
== END 2021-05-03 11:18 | disposition home or self-care (01) ==
PROVIDERS: Physician Assistant; Emergency Provider Emergency Medicine; PCP Internal Medicine
DX: M25.562 Pain in left knee (principal); M25.561 Pain in right knee; M17.0 Bilateral primary osteoarthritis of knee; R60.0 Localized edema; Z20.822 Contact with and (suspected) exposure to COVID-19; E11.22 Type 2 diabetes mellitus with diabetic chronic kidney disease; I13.2 Hypertensive heart and chronic kidney disease with heart failure and with stage 5 chronic kidney disease, or end stage renal disease; I50.9 Heart failure, unspecified; N18.6 End stage renal disease; Z99.2 Dependence on renal dialysis; Z79.82 Long term (current) use of aspirin; F11.20 Opioid dependence, uncomplicated; Z79.4 Long term (current) use of insulin; Z79.899 Other long term (current) drug therapy; F17.200 Nicotine dependence, unspecified, uncomplicated
CPT/HCPCS: 36415; 73560; 80048; 80076; 85025; 87635; 93005; 99284

== ENCOUNTER 2021-05-07 09:07 | Emergency (ER) | payer MEDICARE, MEDICAID, SELFPAY ==
--- NOTE | ~2021-05-07 | XR_ITS ---
EXAMINATION: XR CHEST CLINICAL INFORMATION: Shortness of breath and wheezing COMPARISON: 04/23/2021 TECHNIQUE: Portable 10:03 AM view of the chest was obtained. FINDINGS: Right-sided central line noted overlying the right atrium. Diffuse bilateral ill-defined patchy infiltrates again noted left ovarian progression reaction. No new findings. Heart size remains mildly enlarged. No overt CHF. XR/XR chest 1V IMPRESSION: Stable bilateral infiltrates.
[2021-05-07 09:14] VITALS: BP 156/60; BP 165/79; PULSE 98; RESP 20; TEMP 37.1; O2SAT 96; O2SAT 97; BMI 35.1
--- NOTE | 2021-05-07 09:16 | ED.FEVER ---
HPI - Fever General Chief Complaint: General Medical Stated Complaint: ? COVID, FEVER,HIGH BP 175/76,DIALYSIS PER PT Time Seen by Provider: 05/07/21 09:15 Source: patient and EMS Mode of arrival: EMS Limitations: no limitations History of Present Illness HPI Narrative: 66 y/o female with history of ESRD on HD T/, chronic pain 2/2 osteoarthritis, HFpEF, HTN, constipation who presents to the ED from home via EMS with report of a fever at home as well as high blood pressure of 200 systolic. Her aide called 911 this morning when her blood pressure was elevated. She reportedly did not take her medications yesterday but states that she took all of them today. She does not know her temperature but feels hot and like she has a fever. She also has a cough and wheezing. She is due to HD today at 11am and last had a session on . She was seen in the ED Thursday 05/03 and did not go to dialysis after she was discharged (dialysis center was expecting her and she never showed). MD elicited complaint: fever and other Pertinent past history: other (ESRD on HD, CHF) Onset (ago): unknown Exacerbating factors: nothing Relieving factors: nothing Associated symptoms: chills, myalgias, headache, cough, shortness of breath and extremity pain Treatments prior to arrival fever: none Related Data Home Medications Medication Instructions Recorded Confirmed aspirin 81 mg tablet,delayed 81 mg PO DAILY 10/22/20 04/23/21 release buprenorphine 8 mg-naloxone 2 mg 1 strip SUBLINGUAL BID 10/22/20 04/23/21 sublingual film (Suboxone) clonidine HCl 0.1 mg tablet 0.1 mg PO TID 10/22/20 04/23/21 diclofenac sodium 1 % topical gel 2 g TOPICAL QID 10/22/20 04/23/21 diltiazem HCl 180 mg 180 mg PO DAILY 10/22/20 04/23/21 capsule,extended release 24 hr docusate sodium 100 mg capsule 1 - 2 cap PO BEDTIME PRN 10/22/20 04/23/21 escitalopram oxalate 5 mg tablet 5 mg PO DAILY 10/22/20 04/23/21 insulin lispro 100 unit/mL 4 - 12 unit SUBCUT TIDAC 10/22/20 04/23/21 subcutaneous pen (Humalog KwikPen (U-100) Insulin) mirtazapine 15 mg tablet 15 mg PO BEDTIME 10/22/20 04/23/21 multivitamin (One Daily 1 tab PO DAILY 10/22/20 04/23/21 Multivitamin) tiotropium bromide 18 mcg capsule 1 cap INHALATION DAILY 10/22/20 04/23/21 with inhalation device (Spiriva with HandiHaler) trazodone 100 mg tablet 1 - 2 tab PO BEDTIME 10/22/20 04/23/21 albuterol sulfate 1 amp INHALATION TID PRN 02/25/21 04/23/21 olanzapine 10 mg tablet 1 tab PO BEDTIME 02/25/21 04/23/21 bumetanide 2 mg tablet 2 mg PO DAILY 04/15/21 04/23/21 fluticasone propionate 110 1 puff INHALATION BID 04/15/21 04/23/21 mcg/actuation HFA aerosol inhaler (Flovent HFA) melatonin 5 mg tablet 5 mg PO BEDTIME PRN 04/15/21 04/23/21 pantoprazole 40 mg tablet,delayed 40 mg PO DAILY 04/15/21 04/23/21 release vitamin B comp no.3-folic acid 1 1 tab PO DAILY 04/15/21 04/23/21 mg-vit C 60 mg-biotin 300 mcg tablet (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-[facility]) Previous Rx's Medication Instructions Recorded amlodipine 10 mg tablet 10 mg PO BEDTIME #30 tab 03/07/21 hydralazine 100 mg tablet 100 mg PO TID #90 tab 03/07/21 nicotine 21 mg/24 hr daily 21 mg TRANSDERMAL DAILY #30 ea 03/07/21 transdermal patch polyethylene glycol 3350 17 gram 17 g PO DAILY PRN #30 ea 03/07/21 oral powder packet insulin glargine 100 unit/mL 14 unit (0.14 mL) SUBCUT DAILY #3 04/19/21 subcutaneous solution (Lantus ml U-100 Insulin) lidocaine 4 % topical patch 1 patch TRANSDERMAL DAILY #7 ea 04/25/21 (Lidocaine Pain Relief) diclofenac sodium 3 % topical gel 1 appl TOPICAL BID #100 g 05/03/21 Allergies Allergy/AdvReac Type Severity Reaction Status Date / Time No Known Allergies Allergy Mild NOT Verified 12/14/20 11:50 APPLICABLE Review of Systems Review of Systems: Constitutional: + Fever, + Chills ENT/Mouth: No sore throat, No Rhinorrhea, No Swallowing Difficulty Eyes: No Eye Pain, No Swelling, No Redness Cardiovascular: No Chest Pain, + SOB, + Orthopnea, No Edema Respiratory: + Cough, No Sputum, + Wheezing, + dyspnea Gastrointestinal: No Nausea, No Vomiting, No Diarrhea, No abdominal Pain, No Hematochezia, No Melena Genitourinary: No Dysuria, No Urinary Frequency, No Hematuria Musculoskeletal: + joint pain, + Myalgias Skin: No Skin Lesions, No rash Neuro: No Weakness, No Numbness, No Dizziness, No Headache Psych: + Anxiety/Panic, No Depression Heme/Lymph: No Bruising, No Lymphadenopathy Endocrine: No Polyuria, No Polydipsia PMFSH Past Medical History Medical History Acute kidney injury superimposed on chronic kidney disease VANDANA (acute kidney injury) CHF (congestive heart failure) Constipation Diabetes mellitus Diastolic congestive heart failure Essential hypertension HTN (hypertension) Hypertension Normocytic anemia Surgical History No pertinent past surgical history Family History Family History Other Hypertension Social History Social History Household Members: None Housing: Apartment Do you presently have visiting nurse or other home services: Yes Patient Tobacco Use Status: Current everyday Tobacco user Tobacco use type: Cigarette Cigarette Packs Per Day: 1 Second Hand Smoke Exposure: No Substance Use Type: Heroin Advance Directives: Yes Advance Directives on File: Yes Advance Directives Date on File: 04/20/21 service: No Current occupational status: unemployed and disabled Physical Exam Vital Signs: Vital Signs: Last Vital Signs Temp 98.7 F 05/07/21 09:14 Pulse 90 05/07/21 11:41 Resp 20 05/07/21 11:41 BP 175/80 H 05/07/21 11:41 Pulse Ox 94 05/07/21 11:41 BMI result Body Mass Index 35.1 Appearance: Alert. Oriented X3. No acute distress. Eyes: Pupils equal, round and reactive to light. ENT: Pharynx normal. Neck: Normal inspection. Neck supple. CVS: Normal heart rate and rhythm. Pulses normal. Respiratory: Mild respiratory distress. Breath sounds coarse with rales and expiratory wheezes throughout Abdomen: Softly disended, rotund with mild diffuse tenderness, no rebound or guarding. normal +BS x4 Skin: Skin warm and dry. Normal skin color. Normal skin turgor. No rashes. Extremities: 2+ lower extremity edema Neuro: Oriented X 3. No motor deficit. No sensory deficit. Course Course Course Narrative: 66-year-old female presenting to the ER with reports of fever as well as uncontrolled blood pressure with systolics of 200 at home. On arrival her blood pressure is 165/79 and she is afebrile with a temperature of 98.7 degrees. She is satting 96% on room air with increased work of breathing with exertion. Lung sounds are coarse with rales and wheezes. Suspect this is due to pulmonary edema. She is due for dialysis today. Will place half-inch of some nitro for afterload reduction. Reevaluation(s) Reevaluation #1: CXR with stable bibasilar infiltrates - most likely edema. No leukocytosis or elevated lactic acid to suggest infection. No fevers here. She is negative for COVID, Flu and RSV. Her biggest need today is dialysis and volume removal. She is hemodynamically stable BP 160-170s with stable resp status on room air. K+ 5.2. At this time she is stable for discharge with plan to go directly to HD from here. Patient expressed understanding the importance of this. MDM - Fever Lab Data Result diagrams: 05/07/21 09:33 05/07/21 10:37 Labs: Lab Results 05/07/21 05/07/21 05/07/21 Range/Units 09:33 09:33 09:50 WBC 7.1 (4.8-10.8) X10*3/uL RBC 3.05 L (4.20-5.50) X10*6/uL Hgb 8.7 L (12.0-16.0) g/dl Hct 28.5 L (37.0-47.0) % MCV 93.4 (80.0-98.0) fL MCH 28.5 (27.0-33.0) pg MCHC 30.5 L (31.0-35.0) g/dl RDW 17.5 H (11.0-16.0) % Plt Count 260 (160-400) X10*3/uL MPV 9.4 (9.4-12.3) fL Immature Gran % (Auto) 0.4 (0.0-0.4) % Neut % (Auto) 75.2 H (45-73) % Lymph % (Auto) 15.6 L (20-40) % Putnam % (Auto) 8.1 (2-11) % Eos % (Auto) 0.4 (0-4) % Baso % (Auto) 0.3 (0-2) % Lymph # (Auto) 1.1 L (1.2-4.9) X10*3/uL Putnam # (Auto) 0.6 (0.1-1.2) X10*3/uL Eos # (Auto) 0.0 (0.0-0.4) X10*3/uL Baso # (Auto) 0.0 (0.0-0.2) X10*3/uL Abs Immat Gran (auto) 0.03 (0.00-0.03) X10*3/uL Absolute Neuts (auto) 5.4 (2.0-8.3) x10*3/uL Absolute Nucleated RBC 0.000 (0.0-0.012) X10*3/uL Nucleated RBC % (auto) 0.0 (0.0-0.2) /100WBC Sodium (135-145) mmol/L Potassium (3.3-5.1) mmol/L Chloride (96-108) mmol/L Carbon Dioxide (22-29) mmol/L Anion Gap (12-20) BUN (9-16) mg/dL Creatinine (0.5-1.4) mg/dL Estim Creat Clear Calc Estimated GFR Random Glucose (60-115) mg/dL Lactic Acid 0.6 (0.5-2.0) mmol/L Calcium (8.4-10.2) mg/dL Magnesium (1.6-2.6) mg/dL Total Bilirubin (0.0-1.0) mg/dL Direct Bilirubin (0.0-0.5) mg/dL AST (5-31) U/L ALT (0-31) U/L Alkaline Phosphatase (39-117) U/L Total Protein (6.5-8.0) g/dL Albumin (3.5-5.0) g/dL Influenza Type A (PCR) NEGATIVE (Negative) Influenza Type B (PCR) NEGATIVE (Negative) RSV RNA Qual (PCR) NEGATIVE (Negative) SARS-CoV-2 RNA (RT-PCR) NEGATIVE (Negative) 05/07/21 Range/Units 10:37 WBC (4.8-10.8) X10*3/uL RBC (4.20-5.50) X10*6/uL Hgb (12.0-16.0) g/dl Hct (37.0-47.0) % MCV (80.0-98.0) fL MCH (27.0-33.0) pg MCHC (31.0-35.0) g/dl RDW (11.0-16.0) % Plt Count (160-400) X10*3/uL MPV (9.4-12.3) fL Immature Gran % (Auto) (0.0-0.4) % Neut % (Auto) (45-73) % Lymph % (Auto) (20-40) % Putnam % (Auto) (2-11) % Eos % (Auto) (0-4) % Baso % (Auto) (0-2) % Lymph # (Auto) (1.2-4.9) X10*3/uL Putnam # (Auto) (0.1-1.2) X10*3/uL Eos # (Auto) (0.0-0.4) X10*3/uL Baso # (Auto) (0.0-0.2) X10*3/uL Abs Immat Gran (auto) (0.00-0.03) X10*3/uL Absolute Neuts (auto) (2.0-8.3) x10*3/uL Absolute Nucleated RBC (0.0-0.012) X10*3/uL Nucleated RBC % (auto) (0.0-0.2) /100WBC Sodium 136 (135-145) mmol/L Potassium 5.2 H (3.3-5.1) mmol/L Chloride 98 (96-108) mmol/L Carbon Dioxide 27 (22-29) mmol/L Anion Gap 16 (12-20) BUN 26 H (9-16) mg/dL Creatinine 9.88 H* (0.5-1.4) mg/dL Estim Creat Clear Calc 5.5 Estimated GFR 4 Random Glucose 100 (60-115) mg/dL Lactic Acid (0.5-2.0) mmol/L Calcium 8.4 D (8.4-10.2) mg/dL Magnesium 2.2 (1.6-2.6) mg/dL Total Bilirubin 0.4 (0.0-1.0) mg/dL Direct Bilirubin 0.2 (0.0-0.5) mg/dL AST 33 H D (5-31) U/L ALT 16 (0-31) U/L Alkaline Phosphatase 139 H (39-117) U/L Total Protein 6.5 (6.5-8.0) g/dL Albumin 3.6 (3.5-5.0) g/dL Influenza Type A (PCR) (Negative) Influenza Type B (PCR) (Negative) RSV RNA Qual (PCR) (Negative) SARS-CoV-2 RNA (RT-PCR) (Negative) Discharge Plan Discharge Clinical Impression: Hypertension Qualifiers: Hypertension type: primary hypertension Qualified Code(s): I10 - Essential (primary) hypertension Patient Disposition: Home, Self-Care Instructions: Hypertension (ED), Hemodialysis (DC) Additional Instructions: GO DIRECTLY TO DIALYSIS. It is important not to ever miss a session TAKE ALL OF YOUR MEDICATIONS PRESCRIBED You were negative for COVID-19, influenza and RSV. Prescriptions: No Action trazodone 100 mg tablet 1 - 2 tab PO BEDTIME RF: 0 docusate sodium 100 mg capsule 1 - 2 cap PO BEDTIME PRN (Reason: constipation) RF: 0 mirtazapine 15 mg tablet 15 mg PO BEDTIME RF: 0 diclofenac sodium 1 % gel 2 g topical QID RF: 0 buprenorphine-naloxone [Suboxone] 8-2 mg film 1 strip sublingual BID RF: 0 multivitamin [One Daily Multivitamin] Tablet 1 tab PO DAILY RF: 0 clonidine HCl 0.1 mg tablet 0.1 mg PO TID RF: 0 diltiazem HCl 180 mg capsule,extended release 24hr 180 mg PO DAILY RF: 0 aspirin 81 mg tablet,delayed release (DR/EC) 81 mg PO DAILY RF: 0 insulin lispro [Humalog KwikPen Insulin] 100 unit/mL insulin pen 4 - 12 unit subcut TIDAC RF: 0 escitalopram oxalate 5 mg tablet 5 mg PO DAILY RF: 0 Spiriva with HandiHaler 18 mcg capsule, w/inhalation device 1 cap inhalation DAILY RF: 0 lidocaine [Lidocaine Pain Relief] 4 % Adhesive Patch,Medicated 1 patch transdermal DAILY Qty: 7 RF: 0 olanzapine 10 mg tablet 1 tab PO BEDTIME RF: 0 albuterol sulfate 2.5 mg /3 mL (0.083 %) solution for nebulization 1 amp inhalation TID PRN (Reason: Wheezing) RF: 0 amlodipine 10 mg Tablet 10 mg PO BEDTIME Qty: 30 RF: 0 nicotine 21 mg/24 hr Patch 24 Hour 21 mg transdermal DAILY Qty: 30 RF: 0 hydralazine 100 mg tablet 100 mg PO TID Qty: 90 RF: 0 polyethylene glycol 3350 17 gram Powder In Packet 17 g PO DAILY PRN (Reason: constipation) Qty: 30 RF: 0 bumetanide 2 mg Tablet 2 mg PO DAILY RF: 0 pantoprazole 40 mg Tablet,Delayed Release (Dr/Ec) 40 mg PO DAILY RF: 0 melatonin 5 mg Tablet 5 mg PO BEDTIME PRN (Reason: Sleep) RF: 0 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-[facility] 1-60-300 mg-mg-mcg Tablet 1 tab PO DAILY RF: 0 Flovent HFA 110 mcg/actuation Hfa Aerosol Inhaler 1 puff INHALATION BID RF: 0 Lantus U-100 Insulin 100 unit/mL Solution 14 unit subcut DAILY Qty: 3 RF: 0 diclofenac sodium 3 % gel 1 appl topical BID Qty: 100 RF: 0
[2021-05-07 09:40] LABS: MANUAL DIFF FLAG NO
[2021-05-07 09:51] LABS: Basophils Percent Auto 0.3 % (0-2); Eosinophils Percent Auto 0.4 % (0-4); Hematocrit 28.5 % (37.0-47.0); Hemoglobin 8.7 g/dl (12.0-16.0); Imm Gran Abs Auto 0.03 X10*3/uL (0.00-0.03); Imm Gran Pct Auto 0.4 % (0.0-0.4); Lymphocytes Absolute Auto 1.1 X10*3/uL (1.2-4.9); Lymphocytes Percent Auto 15.6 % (20-40); Mean Corpuscular HGB Conc 30.5 g/dl (31.0-35.0); Mean Corpuscular Hemoglobin 28.5 pg (27.0-33.0); Mean Corpuscular Volume 93.4 fL (80.0-98.0); Mean Platelet Volume 9.4 fL (9.4-12.3); Monocytes Absolute Auto 0.6 X10*3/uL (0.1-1.2); Monocytes Percent Auto 8.1 % (2-11); Neutrophils Absolute Auto 5.4 x10*3/uL (2.0-8.3); Neutrophils Percent Auto 75.2 % (45-73); Platelet Count 260 X10*3/uL (160-400); Red Blood Count 3.05 X10*6/uL (4.20-5.50); Red Cell Distribution Width 17.5 % (11.0-16.0); White Blood Count 7.1 X10*3/uL (4.8-10.8)
[2021-05-07] MEDS: Nitroglycerin 2 % Oint 1 GM Packet 0.5 INCH TRANSDERMA (09:54)
[2021-05-07 10:12] LABS: Lactic Acid 0.6 mmol/L (0.5-2.0)
[2021-05-07 10:48] LABS: Influenza A PCR NEGATIVE (Negative); Influenza B PCR NEGATIVE (Negative); Resp Syncy Virus RNA Qual PCR NEGATIVE (Negative); SARS COV2 PCR INHOUSE NEGATIVE (Negative)
[2021-05-07 11:33] LABS: Alanine Aminotransferase 16 U/L (0-31); Albumin Level 3.6 g/dL (3.5-5.0); Alkaline Phosphatase 139 U/L (39-117); Anion Gap 16 (12-20); Aspartate Amino Transferase 33 U/L (5-31); Bilirubin Direct 0.2 mg/dL (0.0-0.5); Bilirubin Total 0.4 mg/dL (0.0-1.0); Blood Urea Nitrogen 26 mg/dL (9-16); Calcium 8.4 mg/dL (8.4-10.2); Carbon Dioxide 27 mmol/L (22-29); Chloride 98 mmol/L (96-108); Creatinine Clr Calc Pharmacy 5.5; Estimated Glomerular Filt Rate 4; Glucose Random 100 mg/dL (60-115); Magnesium 2.2 mg/dL (1.6-2.6); Potassium 5.2 mmol/L (3.3-5.1); Sodium 136 mmol/L (135-145); Total Protein 6.5 g/dL (6.5-8.0)
[2021-05-07 11:41] VITALS: BP 175/80; PULSE 90; RESP 20; O2SAT 94
== END 2021-05-07 12:35 | disposition home or self-care (01) ==
PROVIDERS: Physician Assistant; Emergency Provider Emergency Medicine; PCP Internal Medicine
DX: I13.2 Hypertensive heart and chronic kidney disease with heart failure and with stage 5 chronic kidney disease, or end stage renal disease (principal); E11.22 Type 2 diabetes mellitus with diabetic chronic kidney disease; N18.6 End stage renal disease; I50.30 Unspecified diastolic (congestive) heart failure; Z99.2 Dependence on renal dialysis; Z20.822 Contact with and (suspected) exposure to COVID-19
CPT/HCPCS: 0241U; 36415; 71045; 80048; 80076; 83605; 83735; 85025; 87040; 99283

== ENCOUNTER 2021-05-11 09:51 | Inpatient (IN) | payer MEDICAID, SELFPAY ==
[2021-05-11] VITALS (9 sets, daily range): BP systolic 168–199; BP diastolic 67–102; PULSE 73–98; RESP 18–24; TEMP 36.6–37.4; O2SAT 94–99; BMI 36.7; BMI 27.5
--- NOTE | ~2021-05-11 | XR_ITS ---
EXAMINATION: XR CHEST CLINICAL INFORMATION: Shortness of breath COMPARISON: 05/07/2021 TECHNIQUE: Portable 10:55 AM view of the chest was obtained. FINDINGS: Right-sided central line in place. Heart size remains mildly enlarged. Changes of mild CHF early interstitial pulmonary edema present. No measurable pleural fluid or major zones of airspace disease although more focal edema is suspected right base medially. XR/XR chest 1V IMPRESSION: CHF as above.
[2021-05-11 10:37] LABS: Glucose, Whole Blood 91 mg/dL (60-115)
--- NOTE | 2021-05-11 10:49 | ECG_ITS ---
Test Reason : sob Blood Pressure : / mmHG Vent. Rate : 089 BPM Atrial Rate : 089 BPM P-R Int : 166 ms QRS Dur : 088 ms QT Int : 368 ms P-R-T Axes : 058 -21 047 degrees QTc Int : 447 ms Normal sinus rhythm Possible Left atrial enlargement Minimal voltage criteria for LVH, may be normal variant ( Jona product ) Borderline ECG When compared with ECG of 03-MAY-2021 09:21, No significant change was found Referred By: Rose Brooks Electronically Signed By:SALVADOR SARABIA
--- NOTE | 2021-05-11 10:51 | ED_ITS ---
HPI - General Adult General Chief complaint: General Medical Stated complaint: DIFF BREATHING ON EXERTION,NO DIALYSIS THIS WEEK Time Seen by Provider: 05/11/21 10:49 Source: patient, EMS, RN notes reviewed and old records reviewed Mode of arrival: EMS Limitations: no limitations History of Present Illness HPI narrative: 66-year-old female with history of end-stage renal disease on dialysis T//Sun (started in Feb) who has been frequently missing sessions, chronic pain secondary to osteoarthritis, HFpEF, HTN, constipation presents to the ER via EMS with high blood pressure & shortness of breath. She cannot re call the last time she got dialysis. She she states she was supposed to go on Sunday but her [employer] told her she not have an appointment. She does not remember if she went on Sunday. She also reports dizziness and not feeling well. She has chronic pain in her legs that worses when they swell. She denies chest pain. MD complaint: HTN, dizziness Onset (ago): unknown Location: head, left, right and lower extremity Radiation: non-radiation Severity: moderate Quality: aching Pain Consistency: constant Relieving factors: none Exacerbating factors: none Associated symptoms: headaches, shortness of breath and weakness Treatments prior to arrival: none Related Data Home Medications Medication Instructions Recorded Confirmed aspirin 81 mg tablet,delayed 81 mg PO DAILY 10/22/20 05/11/21 release buprenorphine 8 mg-naloxone 2 mg 1 strip SUBLINGUAL BID 10/22/20 05/11/21 sublingual film (Suboxone) clonidine HCl 0.1 mg tablet 0.1 mg PO TID 10/22/20 05/11/21 diclofenac sodium 1 % topical gel 2 g TOPICAL QID 10/22/20 04/23/21 diltiazem HCl 180 mg 180 mg PO DAILY 10/22/20 05/11/21 capsule,extended release 24 hr docusate sodium 100 mg capsule 1 - 2 cap PO BEDTIME PRN 10/22/20 04/23/21 escitalopram oxalate 5 mg tablet 5 mg PO DAILY 10/22/20 04/23/21 insulin lispro 100 unit/mL 4 - 12 unit SUBCUT TIDAC 10/22/20 05/11/21 subcutaneous pen (Humalog KwikPen (U-100) Insulin) mirtazapine 15 mg tablet 15 mg PO BEDTIME 10/22/20 04/23/21 multivitamin (One Daily 1 tab PO DAILY 10/22/20 04/23/21 Multivitamin) tiotropium bromide 18 mcg capsule 1 cap INHALATION DAILY 10/22/20 05/11/21 with inhalation device (Spiriva with HandiHaler) trazodone 100 mg tablet 1 - 2 tab PO BEDTIME 10/22/20 05/11/21 albuterol sulfate 1 amp INHALATION TID PRN 02/25/21 05/11/21 olanzapine 10 mg tablet 1 tab PO BEDTIME 02/25/21 05/11/21 bumetanide 2 mg tablet 2 mg PO DAILY 04/15/21 05/11/21 fluticasone propionate 110 1 puff INHALATION BID 04/15/21 04/23/21 mcg/actuation HFA aerosol inhaler (Flovent HFA) melatonin 5 mg tablet 5 mg PO BEDTIME PRN 04/15/21 05/11/21 pantoprazole 40 mg tablet,delayed 40 mg PO DAILY 04/15/21 05/11/21 release vitamin B comp no.3-folic acid 1 1 tab PO DAILY 04/15/21 05/11/21 mg-vit C 60 mg-biotin 300 mcg tablet (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-[facility]) mirtazapine 7.5 mg tablet 1 tab PO BEDTIME 05/11/21 05/11/21 sennosides 8.6 mg tablet (senna) 1 - 2 tab PO BEDTIME PRN 05/11/21 05/11/21 Previous Rx's Medication Instructions Recorded amlodipine 10 mg tablet 10 mg PO BEDTIME #30 tab 03/07/21 hydralazine 100 mg tablet 100 mg PO TID #90 tab 03/07/21 nicotine 21 mg/24 hr daily 21 mg TRANSDERMAL DAILY #30 ea 03/07/21 transdermal patch polyethylene glycol 3350 17 gram 17 g PO DAILY PRN #30 ea 03/07/21 oral powder packet insulin glargine 100 unit/mL 14 unit (0.14 mL) SUBCUT DAILY #3 04/19/21 subcutaneous solution (Lantus ml U-100 Insulin) lidocaine 4 % topical patch 1 patch TRANSDERMAL DAILY #7 ea 04/25/21 (Lidocaine Pain Relief) diclofenac sodium 3 % topical gel 1 appl TOPICAL BID #100 g 05/03/21 Allergies Allergy/AdvReac Type Severity Reaction Status Date / Time No Known Allergies Allergy Mild NOT Verified 07/27/21 11:50 APPLICABLE Review of Systems Review of Systems: Constitutional: No Fever, No Chills ENT/Mouth: No sore throat, No Rhinorrhea, No Swallowing Difficulty Eyes: No Eye Pain, No Swelling, No Redness Cardiovascular: No Chest Pain, + SOB, + Orthopnea, +Edema Respiratory: No Cough, No Sputum, No Wheezing, No dyspnea Gastrointestinal: No Nausea, No Vomiting, No Diarrhea, No abdominal Pain Genitourinary: No Dysuria, No Urinary Frequency, No Hematuria Musculoskeletal: + joint pain, + Myalgias Skin: No Skin Lesions, No rash Neuro: No Weakness, No Numbness, + Dizziness, No Headache Psych: + Anxiety/Panic, No Depression Heme/Lymph: No Bruising, No Lymphadenopathy Endocrine: No Polyuria, No Polydipsia PMFSH Past Medical History Medical History Acute kidney injury superimposed on chronic kidney disease VANDANA (acute kidney injury) CHF (congestive heart failure) Constipation Diabetes mellitus Diastolic congestive heart failure Essential hypertension HTN (hypertension) Hypertension Normocytic anemia Surgical History No pertinent past surgical history Family History Family History Other Hypertension Social History Social History Household Members: None Housing: Apartment Do you presently have visiting nurse or other home services: Yes Patient Tobacco Use Status: Current everyday Tobacco user Tobacco use type: Cigarette Cigarette Packs Per Day: 1 Second Hand Smoke Exposure: No Use of substances other than those prescribed or required for medical reasons: No Substance Use Type: Heroin Advance Directives: Yes Advance Directives on File: Yes Advance Directives Date on File: 04/20/21 service: No Current occupational status: unemployed and disabled Physical Exam Vital Signs: Vital Signs: Last Vital Signs Temp 98.5 F 05/11/21 09:58 Pulse 88 05/11/21 12:31 Resp 23 H 05/11/21 12:31 BP 192/72 H 05/11/21 12:31 Pulse Ox 96 05/11/21 10:21 BMI result Body Mass Index 36.7 Appearance: Alert. Oriented X3. No acute distress. Eyes: Pupils equal, round and reactive to light. ENT: Pharynx normal. Neck: Normal inspection. Neck supple. CVS: Normal heart rate and rhythm. Pulses normal. Respiratory: Mild respiratory distress, RR low 20s, expiratory wheezes and rales heard up middle lung ford bilaterally. Abdomen: Softly distended, rotund. and mildly tender. +BS x4 Skin: Skin warm and dry. Normal skin color. Normal skin turgor. No rashes. Extremities: 3+ lower extremity edema, pitting Neuro: Oriented X 3. No motor deficit. No sensory deficit. Course Course Course Narrative: 66 y/o female presenting to the ER with symptomatic HTN in the setting of missing dialysis. She is overloaded on exam. Topical Nitro paste applied. CXR and labs ordered. EKG with HR 80s and peaked T waves only in V4-V5. Anticipate she will require urgent HD today given her symptoms and exam. Reevaluation(s) Reevaluation #1: CXR with volume overload. SpO2 95% on room air. No need for BiPAP at this time. BP remains 180s systolic. Additional topical nitro ordered. Dr. Lange evaluated the patient at the bedside. He will arrange for dialysis today upstairs. Unable to get lab work despite multiple attempts. Dr. Lange okay with sending labs prior did dialysis initiation once she is accessed. Dr. Goldman spoke with [facility] and she was there for session on Sunday. Reevaluation #2: Dr. Jacob Winkler texted for admission so that patient can go upstairs for dialysis. COVID swab is pending. Will admit once that is back. Consultations Consultation #1: Nephrology Dr. Lange Medical Decision Making Lab Data Labs: Lab Results 05/11/21 05/11/21 Range/Units 10:32 12:16 POC Glucose 91 (60-115) mg/dL COVID-19 (KRYSTINA) Negative (Negative) COVID-19 Clin Com See Note ECG Data Attestation: I personally reviewed and interpreted this ECG as follows: Prior ECG tracings: available for review Interpretation: normal sinus rhythm, HR 89 bpm, pr interval 166, peaked T-wave in V4-V5 only, No ST segment elevation or depressions Critical Care Time Critical Care Time Critical Care Time: Yes Total Critical Care Time: 36 Attestation: I have personally provided critical care time exclusive of time spent on separately billable procedures. Time includes review of lab data, radiology results, discussion with consultants/consultants, and monitoring for potential decompensation. Intervention performed as documented. Discharge Plan Discharge Clinical Impression: ESRD (end stage renal disease), Hypertensive urgency Volume overload Qualifiers: Hypervolemia type: other Qualified Code(s): E87.79 - Other fluid overload Patient Disposition: Admitted As Inpatient
[2021-05-11] MEDS: Nitroglycerin 2 % Oint 1 GM Packet 0.5 INCH TRANSDERMA ×2 (11:16→12:25)
[2021-05-11 12:53] LABS: COVID-19 Test Negative (Negative)
--- NOTE | 2021-05-11 13:43 | PHA.MEDREC ---
Pharmacy Consult ? Medication Reconciliation Pharmacy has completed the medication reconciliation. Patient use [facility] services for [facility]. Was able to get a medication list sent. Jill Cohn, [place]
--- NOTE | 2021-05-11 15:07 | PM.IMHP ---
History of Present Illness Date of Service: 05/11/21 Chief Complaint: hypertension, sob 66F presented with hypertension and sob. Patient reports she was at home and her visiting nurse took her blood pressure noted was 200 systolic and called EMS. Patient herself is a very vague historian. She does report shortness of breath but cannot give further detail, she states she does feel short of breath and is unsure if it has gotten worse. It occurs at rest, she does not usually exert herself. She reports missing her dialysis session yesterday apparently due to some confusion of her schedule during . She usually goes Sunday. However, she often misses. Patient denies chest pain, fever, chills. Review of Systems Review of Systems: Constitutional: Denies fever, denies Chills Eyes: denies blurry vision ENT: denies sore throat CVS: denies chest pain Respiratory: dyspnea GI: no abdominal pain : denies dysuria MSK: denies neck pain Skin: denies rash Neuro: denies specific motor weakness Psych: denies suicidal ideation Endocrine: denies heat/cold intolerance Hematologic: denies easy bleeding Allergy: denies hives [facility] Medical History Acute kidney injury superimposed on chronic kidney disease VANDANA (acute kidney injury) Anemia in chronic kidney disease CHF (congestive heart failure) Constipation Diabetes mellitus Diastolic congestive heart failure End-stage renal disease (ESRD) Essential hypertension HTN (hypertension) HTN (hypertension) Hypertension Non-compliance Normocytic anemia Family History Other Hypertension Surgical History No pertinent past surgical history Social History Household Members: None Housing: Apartment Do you presently have visiting nurse or other home services: Yes Patient Tobacco Use Status: Current everyday Tobacco user Tobacco use type: Cigarette Cigarette Packs Per Day: 1 Second Hand Smoke Exposure: No Use of substances other than those prescribed or required for medical reasons: No Substance Use Type: Heroin Advance Directives: Yes Advance Directives on File: Yes Advance Directives Date on File: 04/20/21 service: No Current occupational status: unemployed and disabled Meds Allergies Allergy/AdvReac Type Severity Reaction Status Date / Time No Known Allergies Allergy Mild NOT Verified 12/14/20 11:50 APPLICABLE Active Medications: Current Medications Acetaminophen (Acetaminophen 325 Mg Tablet) 650 mg PO Q6H PRN PRN Reason: mild pain Albuterol Sulfate (Albuterol Sulfate (0.083%) 2.5 Mg/3 Ml Vial.Neb) mg INHALE TID PRN PRN Reason: Wheezing Amlodipine Besylate (Amlodipine Besylate 10 Mg Tablet) 10 mg PO BEDTIME PHAN; Protocol Aspirin (Aspirin Enteric Coated 81 Mg Tablet.Dr) 81 mg PO DAILY [facility] Bumetanide (Bumetanide 1 Mg Tablet) 2 mg PO DAILY [facility]; Protocol Buprenorphine/Naloxone (Buprenorphine/Naloxone 8/2 Mg Film) film SUBLINGUAL BID [facility] Clonidine HCl (Clonidine Hcl 0.1 Mg Tablet) 0.1 mg PO TID [facility]; Protocol Dextrose (Dextrose 50 % 25 Gm/50 Ml Vial) 25 gm IVPUSH Q15M PRN; Protocol PRN Reason: per Hypoglycemia Standing Ord. Diltiazem HCl (Diltiazem Hcl Cd 180 Mg Cap.Er.24h) 180 mg PO DAILY [facility]; Protocol Escitalopram Oxalate (Escitalopram Oxalate 5 Mg Tablet) 5 mg PO DAILY [facility] Glucose (Glucose Gel 15 Gm Gel..Gram.) 15 gm PO Q15M PRN; Protocol PRN Reason: per Hypoglycemia Standing Ord. Hydralazine HCl (Hydralazine Hcl 50 Mg Tablet) 100 mg PO TID [facility]; Protocol Insulin Glargine (Insulin Glargine,Hum.Rec.Anlog 100 Unit/Ml 10 Ml Vial) 14 unit SUBCUT DAILY [facility] Insulin Human Lispro (Insulin Lispro 100 Unit/Ml 3 Ml Vial) 0 unit SUBCUT QIDACHS [facility]; Protocol Lidocaine (Lidocaine 4 % Patch Adh..Patch) 1 patch TRANSDERMA DAILY [facility]; Protocol Mirtazapine (Mirtazapine 7.5 Mg Tablet) 7.5 mg PO BEDTIME [facility] Multivitamins/Vitamin C (Multivitamin Tablet) 1 tab PO DAILY [facility] Multivitamins/Vitamin C (Multivitamin Tablet) 1 tab PO DAILY [facility] Nicotine (Nicotine 21 Mg Patch.Td24) 21 mg TRANSDERMA DAILY [facility] Non-Formulary Medication (Epoetin Kateryna-Epbx [Retacrit]) 10,000 unit SUBCUT [place] Non-Formulary Medication (Sodium Citrate) 6 ml INTRACATH MOWEFR [facility] Non-Formulary Medication (Diclofenac Sodium) 2 gm TOPICAL QID [facility] Non-Formulary Medication (Fluticasone Propionate [Flovent Hfa]) 1 puff INHALE BID [facility] Non-Formulary Medication (Melatonin) 5 mg PO BEDTIME PRN PRN Reason: Sleep Non-Formulary Medication (Pantoprazole) 40 mg PO DAILY [facility] Olanzapine (Olanzapine 10 Mg Tablet) 10 mg PO BEDTIME [facility] Pharmacy Consult (Consult Rx Perform Med Rec) 1 each MISCELLANE ONCE PRN PRN Reason: Consult order Polyethylene Glycol (Polyethylene Glycol 3350 17 Gm Powd.Pack) 17 gm PO DAILY PRN PRN Reason: constipation Senna (Sennosides 8.6 Mg Tablet) 8.6 - 17.2 mg PO BEDTIME PRN PRN Reason: constipation Tiotropium [place] (Tiotropium [place] 18 Mcg Cap.W.Dev) puff INHALE DAILY [facility] Trazodone HCl (Trazodone Hcl 100 Mg Tablet) 100 - 200 mg PO BEDTIME [facility] Home Medications Medication Instructions Recorded Confirmed Last Taken Type aspirin 81 mg tablet,delayed 81 mg PO DAILY 10/22/20 05/11/21 Unknown History release buprenorphine 8 mg-naloxone 2 mg 1 strip SUBLINGUAL BID 10/22/20 05/11/21 Unknown History sublingual film (Suboxone) clonidine HCl 0.1 mg tablet 0.1 mg PO TID 10/22/20 05/11/21 Unknown History diclofenac sodium 1 % topical gel 2 g TOPICAL QID 10/22/20 05/11/21 Unknown History diltiazem HCl 180 mg 180 mg PO DAILY 10/22/20 05/11/21 Unknown History capsule,extended release 24 hr docusate sodium 100 mg capsule 1 - 2 cap PO BEDTIME PRN 10/22/20 05/11/21 Unknown History escitalopram oxalate 5 mg tablet 5 mg PO DAILY 10/22/20 05/11/21 Unknown History insulin lispro 100 unit/mL See Protocol SUBCUT BIDAC 10/22/20 05/11/21 Unknown History subcutaneous pen (Humalog KwikPen (U-100) Insulin) tiotropium bromide 18 mcg capsule 1 cap INHALATION DAILY 10/22/20 05/11/21 Unknown History with inhalation device (Spiriva with HandiHaler) trazodone 100 mg tablet 1 - 2 tab PO BEDTIME 10/22/20 05/11/21 Unknown History albuterol sulfate 1 amp INHALATION TID PRN 02/25/21 05/11/21 Unknown History olanzapine 10 mg tablet 1 tab PO BEDTIME 02/25/21 05/11/21 Unknown History bumetanide 2 mg tablet 2 mg PO DAILY 04/15/21 05/11/21 Unknown History fluticasone propionate 110 1 puff INHALATION BID 04/15/21 05/11/21 Unknown History mcg/actuation HFA aerosol inhaler (Flovent HFA) melatonin 5 mg tablet 5 mg PO BEDTIME PRN 04/15/21 05/11/21 Unknown History pantoprazole 40 mg tablet,delayed 40 mg PO DAILY 04/15/21 05/11/21 Unknown History release vitamin B comp no.3-folic acid 1 1 tab PO DAILY 04/15/21 05/11/21 Unknown History mg-vit C 60 mg-biotin 300 mcg tablet ([employer]) acetaminophen 325 mg capsule 650 mg PO Q6H PRN 05/11/21 05/11/21 Unknown History epoetin kateryna-epbx 10,000 unit/mL 10,000 unit SUBCUT WE 05/11/21 05/11/21 Unknown History injection solution (Retacrit) mirtazapine 7.5 mg tablet 1 tab PO BEDTIME 05/11/21 05/11/21 Unknown History sennosides 8.6 mg tablet (senna) 1 - 2 tab PO BEDTIME PRN 05/11/21 05/11/21 Unknown History sodium citrate 4 % (3 mL) 6 ml INTRA-CATHETER MOWEFR 05/11/21 05/11/21 Unknown History intra-catheter injection syringe vitamin B comp no.3-folic acid 1 1 tab PO DAILY 05/11/21 05/11/21 Unknown History mg-vit C 60 mg-biotin 300 mcg tablet (Nephro-[facility]) Physical Exam Vital Signs and Narrative: Vital Signs: Last Vital Signs Temp 98.5 F 05/11/21 09:58 Pulse 88 05/11/21 12:31 Resp 23 H 05/11/21 12:31 BP 192/72 H 05/11/21 12:31 Pulse Ox 96 05/11/21 10:21 BMI result Body Mass Index 36.7 General: no acute distress HEENT: atraumatic Neck: normal to visual inspection CVS: S1, S2, RRR Resp: rhonchi Chest: non tender GI: soft, non tender, non distended : no CVA tenderness Skin: no rashes Extremities: no edema Neuro: Oriented X3, grossly intact Psych: cooperative Results Labs Labs: Laboratory Results - last 24 hr 05/11/21 05/11/21 10:32 12:16 POC Glucose 91 COVID-19 (KRYSTINA) Negative COVID-19 Clin Com See Note Imaging Radiologist's Impressions: Impressions Chest X-Ray 05/11/21 10:58 IMPRESSION: CHF as above. Assessment and Plan (1) Hypertensive urgency: Status: Acute 66F presented with hypertension and sob Hypertensive urgency Hemodialysis Continue home meds of Amlodipine, hydralazine, diltiazem, clonidine Monitor Shortness of breath due to acute on chronic diastolic CHF in the setting of missed hemodialysis and end-stage renal disease Hemodialysis Continue Bumex Monitor Diabetes Basal bolus insulin Quality Stroke Does the patient have a stroke diagnosis?: No VTE Prior VTE?: No VTE Risk Level:: Medical - moderate - high VTE Device Contraindication: Treatment Not Indicated VTE Drug Contraindication: N/A - Med Ordered
[2021-05-11 15:27] LABS: MANUAL DIFF FLAG NO
[2021-05-11 15:29] LABS: Basophils Percent Auto 0.3 % (0-2); Eosinophils Absolute Auto 0.1 X10*3/uL (0.0-0.4); Eosinophils Percent Auto 1.5 % (0-4); Hematocrit 26.7 % (37.0-47.0); Hemoglobin 8.4 g/dl (12.0-16.0); Imm Gran Abs Auto 0.03 X10*3/uL (0.00-0.03); Imm Gran Pct Auto 0.4 % (0.0-0.4); Lymphocytes Absolute Auto 1.1 X10*3/uL (1.2-4.9); Lymphocytes Percent Auto 14.2 % (20-40); Mean Corpuscular HGB Conc 31.5 g/dl (31.0-35.0); Mean Corpuscular Volume 92.1 fL (80.0-98.0); Mean Platelet Volume 9.3 fL (9.4-12.3); Monocytes Absolute Auto 0.3 X10*3/uL (0.1-1.2); Monocytes Percent Auto 4.2 % (2-11); Neutrophils Absolute Auto 6.2 x10*3/uL (2.0-8.3); Neutrophils Percent Auto 79.4 % (45-73); Platelet Count 266 X10*3/uL (160-400); Red Cell Distribution Width 16.9 % (11.0-16.0); White Blood Count 7.8 X10*3/uL (4.8-10.8)
[2021-05-11 15:52] LABS: Alanine Aminotransferase 15 U/L (0-31); Albumin Level 3.6 g/dL (3.5-5.0); Alkaline Phosphatase 137 U/L (39-117); Anion Gap 19 (12-20); Aspartate Amino Transferase 40 U/L (5-31); Bilirubin Direct < 0.2 mg/dL (0.0-0.5); Bilirubin Total 0.6 mg/dL (0.0-1.0); Blood Urea Nitrogen 35 mg/dL (9-16); Calcium 8.6 mg/dL (8.4-10.2); Carbon Dioxide 23 mmol/L (22-29); Chloride 98 mmol/L (96-108); Creatinine Clr Calc Pharmacy 5.4; Estimated Glomerular Filt Rate 4; Glucose Random 128 mg/dL (60-115); Magnesium 2.1 mg/dL (1.6-2.6); Phosphorus 4.3 mg/dL (2.7-4.5); Potassium 5.7 mmol/L (3.3-5.1); Sodium 134 mmol/L (135-145)
[2021-05-11] MEDS: hydrALAZINE HCl 50 MG TABLET 100 MG PO ×2 (18:20→20:20)
[2021-05-11] MEDS: cloNIDine HCL 0.1 MG TABLET PO ×2 (18:20→20:19)
[2021-05-11] MEDS: Heparin Sodium,Porcine 5,000 UNIT/ML VIAL 5000 UNIT SUBCUT (18:24)
[2021-05-11 19:42] LABS: Glucose, Whole Blood 79 mg/dL (60-115)
[2021-05-11 19:42] LABS: Glucose, Whole Blood 126 mg/dL (60-115)
[2021-05-11] MEDS: OLANZapine 10 MG TABLET PO (20:18)
[2021-05-11] MEDS: Mirtazapine 7.5 MG TABLET PO (20:18)
[2021-05-11] MEDS: traZODone HCL 100 MG TABLET PO (20:18)
[2021-05-11] MEDS: Melatonin 3 MG TABLET 6 MG PO (20:19)
[2021-05-11] MEDS: amLODIPine Besylate 10 MG TABLET PO (20:19)
[2021-05-11] MEDS: Buprenorphine/Naloxone 8/2 mg FILM 1 FILM SUBLINGUAL (20:19)
[2021-05-12] VITALS (12 sets, daily range): BP systolic 129–192; BP diastolic 56–86; PULSE 68–96; RESP 16–22; TEMP 36.1–37.1; O2SAT 93–97; BMI 27.5
[2021-05-12] MEDS: 0.9 % Sodium Chloride Flush 3 ML SYRINGE IVFLUSH ×2 (00:35→14:20)
[2021-05-12] MEDS: Heparin Sodium,Porcine 5,000 UNIT/ML VIAL 5000 UNIT SUBCUT ×3 (01:57→17:31)
[2021-05-12] MEDS: Omeprazole 20 MG CAPSULE.DR PO (05:28)
[2021-05-12 05:45] LABS: Hematocrit 26.2 % (37.0-47.0); Hemoglobin 8.4 g/dl (12.0-16.0); Mean Corpuscular HGB Conc 32.1 g/dl (31.0-35.0); Mean Corpuscular Hemoglobin 29.6 pg (27.0-33.0); Mean Corpuscular Volume 92.3 fL (80.0-98.0); Mean Platelet Volume 9.5 fL (9.4-12.3); Platelet Count 255 X10*3/uL (160-400); Red Blood Count 2.84 X10*6/uL (4.20-5.50); Red Cell Distribution Width 16.5 % (11.0-16.0); White Blood Count 6.5 X10*3/uL (4.8-10.8)
[2021-05-12 06:25] LABS: Anion Gap 16 (12-20); Blood Urea Nitrogen 24 mg/dL (9-16); Calcium 8.6 mg/dL (8.4-10.2); Carbon Dioxide 21 mmol/L (22-29); Chloride 101 mmol/L (96-108); Creatinine Clr Calc Pharmacy 5.6; Estimated Glomerular Filt Rate 5; Glucose Fasting 76 mg/dL (60-99); Potassium 5.4 mmol/L (3.3-5.1); Sodium 133 mmol/L (135-145)
[2021-05-12 07:11] LABS: Glucose, Whole Blood 71 mg/dL (60-115)
[2021-05-12] MEDS: Insulin Glargine,Hum.rec.anlog 100 UNIT/ML 10 ML VIAL 14 UNIT SUBCUT (08:50)
[2021-05-12] MEDS: dilTIAZem HCL CD 180 MG CAP.ER.24H PO (08:51)
[2021-05-12] MEDS: Escitalopram Oxalate 5 MG TABLET PO (08:51)
[2021-05-12] MEDS: Aspirin Enteric Coated 81 MG TABLET.DR PO (08:51)
[2021-05-12] MEDS: Nicotine 21 MG PATCH.TD24 TRANSDERMA (08:52)
[2021-05-12] MEDS: Bumetanide 1 MG TABLET 2 MG PO (08:52)
[2021-05-12] MEDS: Buprenorphine/Naloxone 8/2 mg FILM 1 FILM SUBLINGUAL ×2 (08:52→20:41)
[2021-05-12] MEDS: cloNIDine HCL 0.1 MG TABLET PO ×3 (08:52→20:42)
[2021-05-12] MEDS: Lidocaine 4 % Patch ADH..PATCH 1 PATCH TRANSDERMA (08:53)
[2021-05-12] MEDS: Fluticasone Propionate 100 MCG BLST.W.DEV 1 PUFF INHALE ×2 (09:00→20:35)
[2021-05-12] MEDS: Multivitamin TABLET 1 TAB PO ×2 (09:02→09:04)
--- NOTE | 2021-05-12 09:24 | MHC.CM.PN ---
CM met with Patient at bedside, in HD. Patient lives alone in an apartment and she uses a walker to assist with mobility. Patient receives 9hours/day of [facility] [employer] services, [facility] (unsure of name), and [facility] Q M/W/F. Home/resume services is the goal for dc and CM has initiated and will follow for dc planning. PCP is DR. Sammy Vicente.
[2021-05-12 11:21] LABS: Glucose, Whole Blood 107 mg/dL (60-115)
--- NOTE | 2021-05-12 11:30 | P.PNIM_ITS ---
Subjective Subjective Date of Service: 05/12/21 Interval History: cc: htn, sob interval history: sob improved Cardiovascular Cardiovascular: Reports no additional cardiovascular complaints Respiratory Respiratory: Reports no additional respiratory complaints Physical Exam Vital Signs: Vital Signs: Last Vital Signs Temp 98.2 F 05/12/21 07:00 Pulse 75 05/12/21 09:04 Resp 18 05/12/21 09:04 BP 156/77 H 05/12/21 08:52 Pulse Ox 94 05/12/21 07:00 BMI result Body Mass Index 27.5 General: AO X 3, no acute distress Resp: diminished, no accessory muscles used CVS: S1,S2,RRR GI: soft, non tender, non distended Neuro: motor grossly intact, alert Psych: appropriate affect, appropriate insight Objective Data Active Medications Acetaminophen (Acetaminophen 325 Mg Tablet) 650 mg PO Q6H PRN PRN Reason: mild pain Albuterol Sulfate (Albuterol Sulfate (0.083%) 2.5 Mg/3 Ml Vial.Neb) 2.5 mg INHALE TID PRN PRN Reason: Wheezing Amlodipine Besylate (Amlodipine Besylate 10 Mg Tablet) 10 mg PO BEDTIME [facility]; Protocol Last Admin: 05/11/21 20:19 Dose: 10 mg Documented by: CASTILEbenezer Aspirin (Aspirin Enteric Coated 81 Mg Tablet.) 81 mg PO DAILY [facility] Last Admin: 05/12/21 08:51 Dose: 81 mg Documented by: JACE Bumetanide (Bumetanide 1 Mg Tablet) 2 mg PO DAILY [facility]; Protocol Last Admin: 05/12/21 08:52 Dose: 2 mg Documented by: JACE Buprenorphine/Naloxone (Buprenorphine/Naloxone 8/2 Mg Film) 1 film SUBLINGUAL BID [facility] Last Admin: 05/12/21 08:52 Dose: 1 film Documented by: JACE Clonidine HCl (Clonidine Hcl 0.1 Mg Tablet) 0.1 mg PO TID [facility]; Protocol Last Admin: 05/12/21 08:52 Dose: 0.1 mg Documented by: JACE Dextrose (Dextrose 50 % 25 Gm/50 Ml Vial) 25 gm IVPUSH Q15M PRN; Protocol PRN Reason: per Hypoglycemia Standing Ord. Diltiazem HCl (Diltiazem Hcl Cd 180 Mg Cap.Er.24h) 180 mg PO DAILY [facility]; Protocol Last Admin: 05/12/21 08:51 Dose: 180 mg Documented by: JACE Escitalopram Oxalate (Escitalopram Oxalate 5 Mg Tablet) 5 mg PO DAILY [facility] Last Admin: 05/12/21 08:51 Dose: 5 mg Documented by: JACE Fluticasone Propionate (Fluticasone Propionate 100 Mcg Blst.W.Dev) 1 puff INHALE RBID [facility] Last Admin: 05/12/21 09:00 Dose: 1 puff Documented by: ARVIN Glucose (Glucose Gel 15 Gm Gel..Gram.) 15 gm PO Q15M PRN; Protocol PRN Reason: per Hypoglycemia Standing Ord. Heparin Sodium (Porcine) (Heparin Sodium,Porcine 5,000 Unit/Ml Vial) 5,000 unit SUBCUT Q8H [facility] Last Admin: 05/12/21 08:49 Dose: 5,000 unit Documented by: JACE Hydralazine HCl (Hydralazine Hcl 50 Mg Tablet) 100 mg PO TID [facility]; Protocol Last Admin: 05/11/21 20:20 Dose: 100 mg Documented by: DAYRON Insulin Glargine (Insulin Glargine,Hum.Rec.Anlog 100 Unit/Ml 10 Ml Vial) 14 unit SUBCUT DAILY [facility] Last Admin: 05/12/21 08:50 Dose: 14 unit Documented by: JACE Insulin Human Lispro (Insulin Lispro 100 Unit/Ml 3 Ml Vial) 0 unit SUBCUT QIDACHS [facility]; Protocol Last Admin: 05/12/21 08:47 Dose: Not Given Documented by: JACE Non-Admin Reason: No Insulin Coverage Lidocaine (Lidocaine 4 % Patch Adh..Patch) 1 patch TRANSDERMA DAILY [facility]; Protocol Last Admin: 05/12/21 08:53 Dose: 1 patch Documented by: JACE Melatonin (Melatonin 3 Mg Tablet) 6 mg PO BEDTIME PRN PRN Reason: Sleep Last Admin: 05/11/21 20:19 Dose: 6 mg Documented by: DAYRON Mirtazapine (Mirtazapine 7.5 Mg Tablet) 7.5 mg PO BEDTIME [facility] Last Admin: 05/11/21 20:18 Dose: 7.5 mg Documented by: DAYRON Multivitamins/Vitamin C (Multivitamin Tablet) 1 tab PO DAILY [facility] Last Admin: 05/12/21 09:02 Dose: 1 tab Documented by: JACE Multivitamins/Vitamin C (Multivitamin Tablet) 1 tab PO DAILY [facility] Last Admin: 05/12/21 09:04 Dose: 1 tab Documented by: JACE Nicotine (Nicotine 21 Mg Patch.Td24) 21 mg TRANSDERMA DAILY [facility] Last Admin: 05/12/21 08:52 Dose: 21 mg Documented by: JACE Olanzapine (Olanzapine 10 Mg Tablet) 10 mg PO BEDTIME [facility] Last Admin: 05/11/21 20:18 Dose: 10 mg Documented by: DAYRON Omeprazole (Omeprazole 20 Mg Capsule.Dr) 20 mg PO DAILY@0630 [facility] Last Admin: 05/12/21 05:28 Dose: 20 mg Documented by: DAYRON Pharmacy Consult (Consult Rx Perform Med Rec) 1 each MISCELLANE ONCE PRN PRN Reason: Consult order Polyethylene Glycol (Polyethylene Glycol 3350 17 Gm Powd.Pack) 17 gm PO DAILY PRN PRN Reason: constipation Senna (Sennosides 8.6 Mg Tablet) 8.6 - 17.2 mg PO BEDTIME PRN PRN Reason: constipation Sodium Chloride (0.9 % Sodium Chloride Flush 3 Ml Syringe) 3 ml IVFLUSH QSHIFT [facility] Last Admin: 05/12/21 09:02 Dose: Not Given Documented by: JACE Non-Admin Reason: Given in Dialysis Tiotropium [place] (Tiotropium [place] 18 Mcg Cap.W.Dev) 1 puff INHALE RDAILY [facility] Last Admin: 05/12/21 09:00 Dose: 1 puff Documented by: ARVIN Trazodone HCl (Trazodone Hcl 100 Mg Tablet) 100 - 200 mg PO BEDTIME [facility] Last Admin: 05/11/21 20:18 Dose: 100 mg Documented by: DAYRON Labs CBC & Chem 7: 05/12/21 05:26 05/12/21 05:26 Labs: Laboratory Results - last 24 hr 05/11/21 05/11/21 05/11/21 12:16 15:17 15:17 MCV 92.1 MCH 29.0 MCHC 31.5 RDW 16.9 H Plt Count 266 MPV 9.3 L Immature Gran % (Auto) 0.4 Neut % (Auto) 79.4 H Lymph % (Auto) 14.2 L [place] % (Auto) 4.2 Eos % (Auto) 1.5 Baso % (Auto) 0.3 Lymph # (Auto) 1.1 L [place] # (Auto) 0.3 Eos # (Auto) 0.1 Baso # (Auto) 0.0 Abs Immat Gran (auto) 0.03 Absolute Neuts (auto) 6.2 Absolute Nucleated RBC 0.000 Nucleated RBC % (auto) 0.0 Anion Gap 19 Estim Creat Clear Calc 5.4 Estimated GFR 4 POC Glucose Random Glucose 128 H Fasting Glucose Calcium 8.6 Phosphorus 4.3 Magnesium 2.1 Total Bilirubin 0.6 Direct Bilirubin < 0.2 AST 40 H ALT 15 Alkaline Phosphatase 137 H Total Protein 7.0 Albumin 3.6 COVID-19 (KRYSTINA) Negative COVID-19 Clin Com See Note 05/11/21 05/11/21 05/12/21 17:32 19:33 05:26 MCV 92.3 MCH 29.6 MCHC 32.1 RDW 16.5 H Plt Count 255 MPV 9.5 Immature Gran % (Auto) Neut % (Auto) Lymph % (Auto) [place] % (Auto) Eos % (Auto) Baso % (Auto) Lymph # (Auto) [place] # (Auto) Eos # (Auto) Baso # (Auto) Abs Immat Gran (auto) Absolute Neuts (auto) Absolute Nucleated RBC 0.000 Nucleated RBC % (auto) 0.0 Anion Gap Estim Creat Clear Calc Estimated GFR POC Glucose 79 126 H Random Glucose Fasting Glucose Calcium Phosphorus Magnesium Total Bilirubin Direct Bilirubin AST ALT Alkaline Phosphatase Total Protein Albumin COVID-19 (KRYSTINA) COVID-19 Clin Com 05/12/21 05/12/21 05/12/21 05:26 07:08 11:18 MCV MCH MCHC RDW Plt Count MPV Immature Gran % (Auto) Neut % (Auto) Lymph % (Auto) [place] % (Auto) Eos % (Auto) Baso % (Auto) Lymph # (Auto) [place] # (Auto) Eos # (Auto) Baso # (Auto) Abs Immat Gran (auto) Absolute Neuts (auto) Absolute Nucleated RBC Nucleated RBC % (auto) Anion Gap 16 Estim Creat Clear Calc 5.6 Estimated GFR 5 POC Glucose 71 107 Random Glucose Fasting Glucose 76 Calcium 8.6 Phosphorus Magnesium Total Bilirubin Direct Bilirubin AST ALT Alkaline Phosphatase Total Protein Albumin COVID-19 (KRYSTINA) COVID-19 Clin Com Assessment and Plan (1) Volume overload: Status: Acute Assessment and Plan: ?66F presented with hypertension and sob Hypertensive urgency Hemodialysis improving Continue home meds of Amlodipine, hydralazine, diltiazem, clonidine Monitor Shortness of breath due to acute on chronic diastolic CHF in the setting of missed hemodialysis and end-stage renal disease sob still present but much improved continue Hemodialysis Continue Bumex Monitor Diabetes Basal bolus insulin Quality Stroke Does the patient have a stroke diagnosis?: No VTE Prior VTE?: No VTE Risk Level:: Medical - moderate - high VTE Device Contraindication: Treatment Not Indicated VTE Drug Contraindication: N/A - Med Ordered
--- NOTE | 2021-05-12 12:21 | MHC.CLN ---
NUTRITION PATIENT RECEIVES HEMODIALYSIS. DIET CHANGED TO DIABETIC 1800 KCAL, 2 GRAM SODIUM, LOW PHOSPHORUS, LOW POTASSIUM FOR NUTRITION NEEDS WITH HEMODIALYSIS.
--- NOTE | 2021-05-12 12:57 | P.PNNP_ITS ---
Subjective Subjective Date of Service: 05/12/21 Interval history: Seen and examined, events noted Physical Exam Vital Signs: Vital Signs: Last Vital Signs Temp 97 F 05/12/21 12:00 Pulse 68 05/12/21 12:00 Resp 18 05/12/21 12:00 BP 129/62 05/12/21 12:00 Pulse Ox 94 05/12/21 07:00 BMI result Body Mass Index 27.5 Objective Data Labs CBC & Chem 7: 05/12/21 05:26 05/12/21 05:26 Labs: Laboratory Results - last 24 hr 05/11/21 05/11/21 05/11/21 15:17 15:17 17:32 WBC 7.8 RBC 2.90 L Hgb 8.4 L Hct 26.7 L MCV 92.1 MCH 29.0 MCHC 31.5 RDW 16.9 H Plt Count 266 MPV 9.3 L Immature Gran % (Auto) 0.4 Neut % (Auto) 79.4 H Lymph % (Auto) 14.2 L [place] % (Auto) 4.2 Eos % (Auto) 1.5 Baso % (Auto) 0.3 Lymph # (Auto) 1.1 L [place] # (Auto) 0.3 Eos # (Auto) 0.1 Baso # (Auto) 0.0 Abs Immat Gran (auto) 0.03 Absolute Neuts (auto) 6.2 Absolute Nucleated RBC 0.000 Nucleated RBC % (auto) 0.0 Sodium 134 L Potassium 5.7 H Chloride 98 Carbon Dioxide 23 Anion Gap 19 BUN 35 H Creatinine 10.29 H* Estim Creat Clear Calc 5.4 Estimated GFR 4 POC Glucose 79 Random Glucose 128 H Fasting Glucose Calcium 8.6 Phosphorus 4.3 Magnesium 2.1 Total Bilirubin 0.6 Direct Bilirubin < 0.2 AST 40 H ALT 15 Alkaline Phosphatase 137 H Total Protein 7.0 Albumin 3.6 05/11/21 05/12/21 05/12/21 19:33 05:26 05:26 WBC 6.5 RBC 2.84 L Hgb 8.4 L Hct 26.2 L MCV 92.3 MCH 29.6 MCHC 32.1 RDW 16.5 H Plt Count 255 MPV 9.5 Immature Gran % (Auto) Neut % (Auto) Lymph % (Auto) [place] % (Auto) Eos % (Auto) Baso % (Auto) Lymph # (Auto) [place] # (Auto) Eos # (Auto) Baso # (Auto) Abs Immat Gran (auto) Absolute Neuts (auto) Absolute Nucleated RBC 0.000 Nucleated RBC % (auto) 0.0 Sodium 133 L Potassium 5.4 H Chloride 101 Carbon Dioxide 21 L Anion Gap 16 BUN 24 H Creatinine 8.69 H* Estim Creat Clear Calc 5.6 Estimated GFR 5 POC Glucose 126 H Random Glucose Fasting Glucose 76 Calcium 8.6 Phosphorus Magnesium Total Bilirubin Direct Bilirubin AST ALT Alkaline Phosphatase Total Protein Albumin 05/12/21 05/12/21 07:08 11:18 WBC RBC Hgb Hct MCV MCH MCHC RDW Plt Count MPV Immature Gran % (Auto) Neut % (Auto) Lymph % (Auto) [place] % (Auto) Eos % (Auto) Baso % (Auto) Lymph # (Auto) [place] # (Auto) Eos # (Auto) Baso # (Auto) Abs Immat Gran (auto) Absolute Neuts (auto) Absolute Nucleated RBC Nucleated RBC % (auto) Sodium Potassium Chloride Carbon Dioxide Anion Gap BUN Creatinine Estim Creat Clear Calc Estimated GFR POC Glucose 71 107 Random Glucose Fasting Glucose Calcium Phosphorus Magnesium Total Bilirubin Direct Bilirubin AST ALT Alkaline Phosphatase Total Protein Albumin Procedures Date of Service Date of Service: 05/12/21 Assessment & Plan Assessment and plan (1) Volume overload: Status: Acute Assessment and Plan: ? 1. ESRD: usu TTS; missed Tx on for ? reasons--she is blaming her [employer] 2. SOB: d/t severe HTN and hypervol; improved after HD yest --3 L removed and now on HD again 3/ Anemia 4. HTN: imporved now with back on meds and fluid removal REC: d/c plannig; ask Soc Work to look inot [employer] issue Time Spent With Patient Time: Total time spent is greater than 50% in coordination of care (as documented) at patient's floor/unit and/or counseling patient: Progress Note: Quality Stroke Does the patient have a stroke diagnosis?: No
[2021-05-12] MEDS: Acetaminophen 325 MG TABLET 650 MG PO (14:20)
[2021-05-12] MEDS: hydrALAZINE HCl 50 MG TABLET 100 MG PO ×2 (14:20→20:41)
[2021-05-12 16:03] LABS: Glucose, Whole Blood 135 mg/dL (60-115)
[2021-05-12] MEDS: HYDROmorphone HCl 0.5 MG/0.5 ML SYRINGE 0.25 MG IVPUSH (16:47)
[2021-05-12 20:09] LABS: Glucose, Whole Blood 108 mg/dL (60-115)
[2021-05-12] MEDS: traZODone HCL 100 MG TABLET PO (20:40)
[2021-05-12] MEDS: Mirtazapine 7.5 MG TABLET PO (20:41)
[2021-05-12] MEDS: amLODIPine Besylate 10 MG TABLET PO (20:41)
[2021-05-12] MEDS: OLANZapine 10 MG TABLET PO (20:41)
[2021-05-13] VITALS (12 sets, daily range): BP systolic 109–163; BP diastolic 55–75; PULSE 65–78; RESP 16–22; TEMP 36.4–36.8; O2SAT 91–100
[2021-05-13] MEDS: 0.9 % Sodium Chloride Flush 3 ML SYRINGE IVFLUSH ×4 (00:50→21:15)
[2021-05-13] MEDS: Heparin Sodium,Porcine 5,000 UNIT/ML VIAL 5000 UNIT SUBCUT ×3 (01:11→17:43)
[2021-05-13] MEDS: Omeprazole 20 MG CAPSULE.DR PO (06:18)
--- NOTE | 2021-05-13 06:31 | PC.NURSE ---
DIALYSIS PATIENT AND PER PT SHE MAKES NO URINE.
[2021-05-13 06:40] LABS: Hematocrit 29.6 % (37.0-47.0); Mean Corpuscular HGB Conc 30.4 g/dl (31.0-35.0); Mean Corpuscular Hemoglobin 28.3 pg (27.0-33.0); Mean Corpuscular Volume 93.1 fL (80.0-98.0); Mean Platelet Volume 9.8 fL (9.4-12.3); Platelet Count 278 X10*3/uL (160-400); Red Blood Count 3.18 X10*6/uL (4.20-5.50); Red Cell Distribution Width 15.8 % (11.0-16.0); White Blood Count 5.4 X10*3/uL (4.8-10.8)
[2021-05-13 07:13] LABS: Anion Gap 15 (12-20); Blood Urea Nitrogen 22 mg/dL (9-16); Calcium 8.3 mg/dL (8.4-10.2); Carbon Dioxide 23 mmol/L (22-29); Chloride 100 mmol/L (96-108); Creatinine Clr Calc Pharmacy 7.5; Estimated Glomerular Filt Rate 6; Glucose Fasting 87 mg/dL (60-99); Sodium 133 mmol/L (135-145)
[2021-05-13 07:40] LABS: Glucose, Whole Blood 82 mg/dL (60-115)
[2021-05-13] MEDS: Nicotine 21 MG PATCH.TD24 TRANSDERMA (09:10)
[2021-05-13] MEDS: Lidocaine 4 % Patch ADH..PATCH 1 PATCH TRANSDERMA (09:11)
[2021-05-13] MEDS: Bumetanide 1 MG TABLET 2 MG PO (09:12)
[2021-05-13] MEDS: dilTIAZem HCL CD 180 MG CAP.ER.24H PO (09:12)
[2021-05-13] MEDS: Aspirin Enteric Coated 81 MG TABLET.DR PO (09:13)
[2021-05-13] MEDS: Escitalopram Oxalate 5 MG TABLET PO (09:13)
[2021-05-13] MEDS: hydrALAZINE HCl 50 MG TABLET 100 MG PO ×2 (09:13→16:45)
[2021-05-13] MEDS: cloNIDine HCL 0.1 MG TABLET PO ×3 (09:13→21:15)
[2021-05-13] MEDS: Insulin Glargine,Hum.rec.anlog 100 UNIT/ML 10 ML VIAL 14 UNIT SUBCUT (09:14)
[2021-05-13] MEDS: Buprenorphine/Naloxone 8/2 mg FILM 1 FILM SUBLINGUAL ×2 (09:14→21:15)
[2021-05-13] MEDS: Multivitamin TABLET 1 TAB PO (09:15)
--- NOTE | 2021-05-13 09:45 | PM.PNNEP ---
Subjective Subjective Date of Service: 05/13/21 Interval history: Seen and examined, events noted denies SOB Physical Exam Vital Signs: Vital Signs: Last Vital Signs Temp 98.0 F 05/13/21 07:32 Pulse 65 05/13/21 09:13 Resp 18 05/13/21 07:32 BP 160/75 H 05/13/21 09:13 Pulse Ox 97 05/13/21 07:32 BMI result Body Mass Index 27.5 Const: General: no acute distress HENMT: Head: Yes normocephalic and Yes atraumatic Neck: Neck: Yes supple Resp: Auscultation: clear to auscultation bilaterally Cardio: Heart sounds: S1 normal heart sound present and S2 normal heart sound present GI: Palpation (GI): Soft to palpation and nontender Extrem: General: No edema Objective Data Labs CBC & Chem 7: 05/13/21 06:00 05/13/21 06:00 Labs: Laboratory Results - last 24 hr 05/12/21 05/12/21 05/12/21 11:18 15:58 19:59 WBC RBC Hgb Hct MCV MCH MCHC RDW Plt Count MPV Absolute Nucleated RBC Nucleated RBC % (auto) Sodium Potassium Chloride Carbon Dioxide Anion Gap BUN Creatinine Estim Creat Clear Calc Estimated GFR POC Glucose 107 135 H 108 Fasting Glucose Calcium 05/13/21 05/13/21 05/13/21 06:00 06:00 07:30 WBC 5.4 RBC 3.18 L Hgb 9.0 L Hct 29.6 L MCV 93.1 MCH 28.3 MCHC 30.4 L RDW 15.8 Plt Count 278 MPV 9.8 Absolute Nucleated RBC 0.000 Nucleated RBC % (auto) 0.0 Sodium 133 L Potassium 5.0 Chloride 100 Carbon Dioxide 23 Anion Gap 15 BUN 22 H Creatinine 6.47 H* Estim Creat Clear Calc 7.5 Estimated GFR 6 POC Glucose 82 Fasting Glucose 87 Calcium 8.3 L Procedures Date of Service Date of Service: 05/13/21 Assessment & Plan Assessment and plan (1) ESRD (end stage renal disease): Status: Acute (2) Hyponatremia: Status: Acute (3) Anemia: Status: Acute Assessment and Plan: known ESRD recently started on HD (03/03) usually has HD [facility] prior kidney biopsy showed glomerular sclerosis, no immune complex disease (but no IF or EM) second recent biopsy showed C3G but significant chronic changes with decision not to treat known heart failure with preserved heart function REC HD per schedule restrict free water intake CRUZITO phosphate binders Time Spent With Patient Time: Total time spent is greater than 50% in coordination of care (as documented) at patient's floor/unit and/or counseling patient: Progress Note: Quality Stroke Does the patient have a stroke diagnosis?: No
--- NOTE | 2021-05-13 10:13 | HO.PM.IMPN ---
Subjective Subjective Date of Service: 05/13/21 Interval History: cc: htn, sob interval history: sob improved Cardiovascular Cardiovascular: Reports no additional cardiovascular complaints Gastrointestinal Gastrointestinal: Reports no additional gastrointestinal complaints Physical Exam Vital Signs: Vital Signs: Last Vital Signs Temp 98.0 F 05/13/21 07:32 Pulse 65 05/13/21 09:13 Resp 18 05/13/21 07:32 BP 160/75 H 05/13/21 09:13 Pulse Ox 97 05/13/21 07:32 BMI result Body Mass Index 27.5 General: AO X 3, no acute distress Resp:? diminished, no accessory muscles used CVS: S1,S2,RRR GI: soft, non tender, non distended Neuro:? motor grossly intact, alert Psych: appropriate affect, appropriate insight? Objective Data Active Medications Acetaminophen (Acetaminophen 325 Mg Tablet) 650 mg PO Q6H PRN PRN Reason: mild pain Last Admin: 05/12/21 14:20 Dose: 650 mg Documented by: YANY Albuterol Sulfate (Albuterol Sulfate (0.083%) 2.5 Mg/3 Ml Vial.Mookie) 2.5 mg INHALE TID PRN PRN Reason: Wheezing Amlodipine Besylate (Amlodipine Besylate 10 Mg Tablet) 10 mg PO BEDTIME [facility]; Protocol Last Admin: 05/12/21 20:41 Dose: 10 mg Documented by: YANY Aspirin (Aspirin Enteric Coated 81 Mg Tablet.) 81 mg PO DAILY [facility] Last Admin: 05/13/21 09:13 Dose: 81 mg Documented by: JACE Bumetanide (Bumetanide 1 Mg Tablet) 2 mg PO DAILY [facility]; Protocol Last Admin: 05/13/21 09:12 Dose: 2 mg Documented by: JACE Buprenorphine/Naloxone (Buprenorphine/Naloxone 8/2 Mg Film) 1 film SUBLINGUAL BID [facility] Last Admin: 05/13/21 09:14 Dose: 1 film Documented by: JACE Clonidine HCl (Clonidine Hcl 0.1 Mg Tablet) 0.1 mg PO TID [facility]; Protocol Last Admin: 05/13/21 09:13 Dose: 0.1 mg Documented by: JACE Dextrose (Dextrose 50 % 25 Gm/50 Ml Vial) 25 gm IVPUSH Q15M PRN; Protocol PRN Reason: per Hypoglycemia Standing Ord. Diltiazem HCl (Diltiazem Hcl Cd 180 Mg Cap.Er.24h) 180 mg PO DAILY [facility]; Protocol Last Admin: 05/13/21 09:12 Dose: 180 mg Documented by: JACE Escitalopram Oxalate (Escitalopram Oxalate 5 Mg Tablet) 5 mg PO DAILY [facility] Last Admin: 05/13/21 09:13 Dose: 5 mg Documented by: JACE Fluticasone Propionate (Fluticasone Propionate 100 Mcg Blst.W.Dev) 1 puff INHALE RBID [facility] Last Admin: 05/13/21 07:42 Dose: Not Given Documented by: DRAKE Non-Admin Reason: Patient Refused Glucose (Glucose Gel 15 Gm Gel..Gram.) 15 gm PO Q15M PRN; Protocol PRN Reason: per Hypoglycemia Standing Ord. Heparin Sodium (Porcine) (Heparin Sodium,Porcine 5,000 Unit/Ml Vial) 5,000 unit SUBCUT Q8H [facility] Last Admin: 05/13/21 09:14 Dose: 5,000 unit Documented by: JACE Hydralazine HCl (Hydralazine Hcl 50 Mg Tablet) 100 mg PO TID [facility]; Protocol Last Admin: 05/13/21 09:13 Dose: 100 mg Documented by: JACE Hydromorphone HCl (Hydromorphone Hcl 0.5 Mg/0.5 Ml Syringe) 0.25 mg IVPUSH Q4H PRN; Protocol PRN Reason: moderate pain Last Admin: 05/12/21 16:47 Dose: 0.25 mg Documented by: YANY Insulin Glargine (Insulin Glargine,Hum.Rec.Anlog 100 Unit/Ml 10 Ml Vial) 14 unit SUBCUT DAILY [facility] Last Admin: 05/13/21 09:14 Dose: 14 unit Documented by: JACE Insulin Human Lispro (Insulin Lispro 100 Unit/Ml 3 Ml Vial) 0 unit SUBCUT QIDACHS [facility]; Protocol Last Admin: 05/13/21 07:46 Dose: Not Given Documented by: JACE Non-Admin Reason: No Insulin Coverage Lidocaine (Lidocaine 4 % Patch Adh..Patch) 1 patch TRANSDERMA DAILY [facility]; Protocol Last Admin: 05/13/21 09:11 Dose: 1 patch Documented by: JACE Melatonin (Melatonin 3 Mg Tablet) 6 mg PO BEDTIME PRN PRN Reason: Sleep Last Admin: 05/11/21 20:19 Dose: 6 mg Documented by: DAYRON Mirtazapine (Mirtazapine 7.5 Mg Tablet) 7.5 mg PO BEDTIME [facility] Last Admin: 05/12/21 20:41 Dose: 7.5 mg Documented by: YANY Multivitamins/Vitamin C (Multivitamin Tablet) 1 tab PO DAILY [facility] Last Admin: 05/12/21 09:02 Dose: 1 tab Documented by: JACE Multivitamins/Vitamin C (Multivitamin Tablet) 1 tab PO DAILY [facility] Last Admin: 05/12/21 09:04 Dose: 1 tab Documented by: JACE Nicotine (Nicotine 21 Mg Patch.Td24) 21 mg TRANSDERMA DAILY [facility] Last Admin: 05/13/21 09:10 Dose: 21 mg Documented by: JACE Olanzapine (Olanzapine 10 Mg Tablet) 10 mg PO BEDTIME [facility] Last Admin: 05/12/21 20:41 Dose: 10 mg Documented by: YANY Omeprazole (Omeprazole 20 Mg Capsule.Dr) 20 mg PO DAILY@0630 [facility] Last Admin: 05/13/21 06:18 Dose: 20 mg Documented by: MAGDALENO Pharmacy Consult (Consult Rx Perform Med Rec) 1 each MISCELLANE ONCE PRN PRN Reason: Consult order Polyethylene Glycol (Polyethylene Glycol 3350 17 Gm Powd.Pack) 17 gm PO DAILY PRN PRN Reason: constipation Senna (Sennosides 8.6 Mg Tablet) 8.6 - 17.2 mg PO BEDTIME PRN PRN Reason: constipation Sodium Chloride (0.9 % Sodium Chloride Flush 3 Ml Syringe) 3 ml IVFLUSH QSHIFT [facility] Last Admin: 05/13/21 09:11 Dose: 3 ml Documented by: JACE Tiotropium [place] (Tiotropium [place] 18 Mcg Cap.W.Dev) 1 puff INHALE RDAILY [facility] Last Admin: 05/13/21 07:42 Dose: Not Given Documented by: DRAKE Non-Admin Reason: Patient Refused Trazodone HCl (Trazodone Hcl 100 Mg Tablet) 100 - 200 mg PO BEDTIME [facility] Last Admin: 12/23/21 20:40 Dose: 100 mg Documented by: YANY Labs CBC & Chem 7: 05/13/21 06:00 05/13/21 06:00 Labs: Laboratory Results - last 24 hr 05/12/21 05/12/21 05/12/21 11:18 15:58 19:59 MCV MCH MCHC RDW Plt Count MPV Absolute Nucleated RBC Nucleated RBC % (auto) Anion Gap Estim Creat Clear Calc Estimated GFR POC Glucose 107 135 H 108 Fasting Glucose Calcium 05/13/21 05/13/21 05/13/21 06:00 06:00 07:30 MCV 93.1 MCH 28.3 MCHC 30.4 L RDW 15.8 Plt Count 278 MPV 9.8 Absolute Nucleated RBC 0.000 Nucleated RBC % (auto) 0.0 Anion Gap 15 Estim Creat Clear Calc 7.5 Estimated GFR 6 POC Glucose 82 Fasting Glucose 87 Calcium 8.3 L Assessment and Plan (1) Volume overload: Status: Acute Assessment and Plan: ?66F presented with hypertension and sob Hypertensive urgency Hemodialysis improving Continue home meds of Amlodipine, hydralazine, diltiazem, clonidine Monitor Shortness of breath due to acute on chronic diastolic CHF in the setting of missed hemodialysis and end-stage renal disease patient improved, but still feels too sob to go home continue Hemodialysis Continue Bumex Monitor Diabetes Basal bolus insulin Quality Stroke Does the patient have a stroke diagnosis?: No VTE Prior VTE?: No VTE Risk Level:: Medical - moderate - high VTE Device Contraindication: Treatment Not Indicated VTE Drug Contraindication: N/A - Med Ordered
[2021-05-13 12:25] LABS: Glucose, Whole Blood 125 mg/dL (60-115)
[2021-05-13 16:27] LABS: Glucose, Whole Blood 107 mg/dL (60-115)
[2021-05-13] MEDS: Fluticasone Propionate 100 MCG BLST.W.DEV 1 PUFF INHALE (18:55)
[2021-05-13 20:32] LABS: Glucose, Whole Blood 185 mg/dL (60-115)
[2021-05-13] MEDS: traZODone HCL 100 MG TABLET PO (21:13)
[2021-05-13] MEDS: OLANZapine 10 MG TABLET PO (21:13)
[2021-05-13] MEDS: Insulin Lispro 100 UNIT/ML 3 ML VIAL SUBCUT (21:13)
[2021-05-13] MEDS: Mirtazapine 7.5 MG TABLET PO (21:13)
[2021-05-13] MEDS: amLODIPine Besylate 10 MG TABLET PO (21:14)
[2021-05-13] MEDS: Acetaminophen 325 MG TABLET 650 MG PO (21:16)
[2021-05-14] VITALS (8 sets, daily range): BP systolic 134–161; BP diastolic 57–72; PULSE 68–78; RESP 18–20; TEMP 36.4–36.9; O2SAT 94–100
[2021-05-14] MEDS: Heparin Sodium,Porcine 5,000 UNIT/ML VIAL 5000 UNIT SUBCUT ×2 (01:52→10:19)
[2021-05-14] MEDS: Omeprazole 20 MG CAPSULE.DR PO (05:57)
[2021-05-14 07:20] LABS: Glucose, Whole Blood 81 mg/dL (60-115)
[2021-05-14] MEDS: Fluticasone Propionate 100 MCG BLST.W.DEV 1 PUFF INHALE (07:35)
[2021-05-14] MEDS: Insulin Glargine,Hum.rec.anlog 100 UNIT/ML 10 ML VIAL 14 UNIT SUBCUT (08:14)
[2021-05-14] MEDS: Escitalopram Oxalate 5 MG TABLET PO (08:14)
[2021-05-14] MEDS: Bumetanide 1 MG TABLET 2 MG PO (08:14)
[2021-05-14] MEDS: Aspirin Enteric Coated 81 MG TABLET.DR PO (08:14)
[2021-05-14] MEDS: Multivitamin TABLET 1 TAB PO (08:14)
[2021-05-14] MEDS: Buprenorphine/Naloxone 8/2 mg FILM 1 FILM SUBLINGUAL (08:14)
[2021-05-14] MEDS: dilTIAZem HCL CD 180 MG CAP.ER.24H PO (08:15)
[2021-05-14] MEDS: hydrALAZINE HCl 50 MG TABLET 100 MG PO (08:16)
[2021-05-14] MEDS: Lidocaine 4 % Patch ADH..PATCH 1 PATCH TRANSDERMA (08:17)
[2021-05-14] MEDS: 0.9 % Sodium Chloride Flush 3 ML SYRINGE IVFLUSH (08:17)
[2021-05-14] MEDS: Nicotine 21 MG PATCH.TD24 TRANSDERMA (08:18)
[2021-05-14] MEDS: cloNIDine HCL 0.1 MG TABLET PO (08:18)
[2021-05-14 08:21] LABS: Hematocrit 28.4 % (37.0-47.0); Hemoglobin 8.7 g/dl (12.0-16.0); Mean Corpuscular HGB Conc 30.6 g/dl (31.0-35.0); Mean Corpuscular Hemoglobin 28.6 pg (27.0-33.0); Mean Corpuscular Volume 93.4 fL (80.0-98.0); Mean Platelet Volume 9.6 fL (9.4-12.3); Platelet Count 281 X10*3/uL (160-400); Red Blood Count 3.04 X10*6/uL (4.20-5.50); Red Cell Distribution Width 15.6 % (11.0-16.0); White Blood Count 5.9 X10*3/uL (4.8-10.8)
[2021-05-14 08:40] LABS: Anion Gap 19 (12-20); Blood Urea Nitrogen 37 mg/dL (9-16); Calcium 8.6 mg/dL (8.4-10.2); Carbon Dioxide 22 mmol/L (22-29); Chloride 100 mmol/L (96-108); Creatinine Clr Calc Pharmacy 5.4; Estimated Glomerular Filt Rate 4; Glucose Fasting 83 mg/dL (60-99); Potassium 5.5 mmol/L (3.3-5.1); Sodium 135 mmol/L (135-145)
--- NOTE | 2021-05-14 09:01 | PM.PNNEP ---
Subjective Subjective Date of Service: 05/14/21 Interval history: seen and examined can I go home? no complaints Physical Exam Vital Signs: Vital Signs: Last Vital Signs Temp 98.3 F 05/14/21 07:08 Pulse 78 05/14/21 08:18 Resp 20 05/14/21 07:37 BP 161/72 H 05/14/21 08:18 Pulse Ox 95 05/14/21 07:08 BMI result Body Mass Index 27.5 Const: General: no acute distress HENMT: Head: Yes normocephalic and Yes atraumatic Neck: Neck: Yes supple Resp: Auscultation: clear to auscultation bilaterally Cardio: Heart sounds: S1 normal heart sound present and S2 normal heart sound present GI: Palpation (GI): Soft to palpation and nontender Extrem: General: No edema Objective Data Labs CBC & Chem 7: 05/14/21 07:27 05/14/21 07:27 Labs: Laboratory Results - last 24 hr 05/13/21 05/13/21 05/13/21 11:58 16:23 20:25 WBC RBC Hgb Hct MCV MCH MCHC RDW Plt Count MPV Absolute Nucleated RBC Nucleated RBC % (auto) Sodium Potassium Chloride Carbon Dioxide Anion Gap BUN Creatinine Estim Creat Clear Calc Estimated GFR POC Glucose 125 H 107 185 H Fasting Glucose Calcium 05/14/21 05/14/21 05/14/21 07:07 07:27 07:27 WBC 5.9 RBC 3.04 L Hgb 8.7 L Hct 28.4 L MCV 93.4 MCH 28.6 MCHC 30.6 L RDW 15.6 Plt Count 281 MPV 9.6 Absolute Nucleated RBC 0.000 Nucleated RBC % (auto) 0.0 Sodium 135 Potassium 5.5 H Chloride 100 Carbon Dioxide 22 Anion Gap 19 BUN 37 H D Creatinine 8.99 H* Estim Creat Clear Calc 5.4 Estimated GFR 4 POC Glucose 81 Fasting Glucose 83 Calcium 8.6 Procedures Date of Service Date of Service: 05/14/21 Assessment & Plan Assessment and plan (1) ESRD (end stage renal disease): Status: Acute (2) Hyponatremia: Status: Acute (3) Anemia: Status: Acute Assessment and Plan: known ESRD recently started on HD (03/03) usually has HD at [facility] prior kidney biopsy showed glomerular sclerosis, no immune complex disease (but no IF or EM) second recent biopsy showed C3G but significant chronic changes with decision not to treat known heart failure with preserved heart function REC sodium zirconium 5 gram x 1 HD tomorrow because of Holidays restrict free water intake CRUZITO phosphate binders Time Spent With Patient Time: Total time spent is greater than 50% in coordination of care (as documented) at patient's floor/unit and/or counseling patient: Progress Note: Quality Stroke Does the patient have a stroke diagnosis?: No
--- NOTE | 2021-05-14 10:11 | P.DS_ITS ---
DS: Providers Provider Date of Service: 05/14/21 Date of admission: 05/11/21 12:59 Primary care physician: Sammy Vicente MD Consults: 05/11/21 12:12 Consult to Nephrology Stat Consulting Provider: Clive Lange Reason for consultation: ESRD on HD Has provider been notified: Yes DS: Diagnosis Discharge Diagnosis (1) ESRD (end stage renal disease): Status: Acute (2) Hyponatremia: Status: Acute (3) Anemia: Status: Acute DS: Summary Hospital Course Hospital Course: Patient was admitted for hypertensive urgency and shortness of breath due to acute on chronic diastolic CHF in the setting of missed hemodialysis and end- stage renal disease causing fluid overload. She was dialyzed over the next few days and blood pressure shortness of breath significantly improved. She is now feeling back to baseline and blood pressure is better controlled. She will be discharged home with [facility] services. She will resume dialysis tomorrow 05/15/21 (due to holiday) and then continue TTS. Time Spent with Patient Time attestation: Total time spent providing and/or coordinating discharge services: Discharge coordination time: Greater than 30 minutes Quality: Stroke Does the patient have a stroke diagnosis?: No Physical Exam Vital Signs: Vital Signs: Last Vital Signs Temp 98.3 F 05/14/21 07:08 Pulse 78 05/14/21 08:18 Resp 20 05/14/21 07:37 BP 161/72 H 05/14/21 08:18 Pulse Ox 95 05/14/21 07:08 BMI result Body Mass Index 27.5 General: AO X 3, no acute distress Resp:? diminished, no accessory muscles used CVS: S1,S2,RRR GI: soft, non tender, non distended Neuro:? motor grossly intact, alert Psych: appropriate affect, appropriate insight? DS: Data Data Completed and Pending Completed studies during hospitalization [Text1]: Procedures Excision of Left Kidney, Percutaneous Approach, Diagnostic (02/25/21) Excision of Right Kidney, Percutaneous Approach, Diagnostic (10/22/20) Insertion of Infusion Device into Superior Vena Cava, Percutaneous Approach (02/25/21) Insertion of Tunneled Vascular Access Device into Chest Subcutaneous Tissue and Fascia, Percutaneous Approach (02/25/21) Performance of Urinary Filtration, Intermittent, Less than 6 Hours Per Day () Transfusion of Nonautologous Red Blood Cells into Peripheral Vein, Percutaneous Approach (02/25/21) Labs on day of discharge: Laboratory Results - last 24 hr 05/13/21 05/13/21 05/13/21 11:58 16:23 20:25 WBC RBC Hgb Hct MCV MCH MCHC RDW Plt Count MPV Absolute Nucleated RBC Nucleated RBC % (auto) Sodium Potassium Chloride Carbon Dioxide Anion Gap BUN Creatinine Estim Creat Clear Calc Estimated GFR POC Glucose 125 H 107 185 H Fasting Glucose Calcium 05/14/21 05/14/21 05/14/21 07:07 07:27 07:27 WBC 5.9 RBC 3.04 L Hgb 8.7 L Hct 28.4 L MCV 93.4 MCH 28.6 MCHC 30.6 L RDW 15.6 Plt Count 281 MPV 9.6 Absolute Nucleated RBC 0.000 Nucleated RBC % (auto) 0.0 Sodium 135 Potassium 5.5 H Chloride 100 Carbon Dioxide 22 Anion Gap 19 BUN 37 H D Creatinine 8.99 H* Estim Creat Clear Calc 5.4 Estimated GFR 4 POC Glucose 81 Fasting Glucose 83 Calcium 8.6 Discharge Plan Discharge Patient Disposition: Home Health Service Discharge Diagnosis: chf, esrd, htn Referrals: Sammy Vicente MD [Primary Care Provider] - 05/31/21 11:00 am (You have a follow up appointment with Dr. Vicente on May 31 at 11am. ) Discharge Medications: Continued trazodone 100 mg tablet 1 - 2 tab PO BEDTIME RF: 0 docusate sodium 100 mg capsule 1 - 2 cap PO BEDTIME PRN (Reason: constipation) RF: 0 diclofenac sodium 1 % gel 2 g topical QID RF: 0 buprenorphine-naloxone [Suboxone] 8-2 mg film 1 strip sublingual BID RF: 0 clonidine HCl 0.1 mg tablet 0.1 mg PO TID RF: 0 diltiazem HCl 180 mg capsule,extended release 24hr 180 mg PO DAILY RF: 0 aspirin 81 mg tablet,delayed release (DR/EC) 81 mg PO DAILY RF: 0 insulin lispro [Humalog KwikPen Insulin] 100 unit/mL insulin pen See Protocol unit subcut BIDAC RF: 0 escitalopram oxalate 5 mg tablet 5 mg PO DAILY RF: 0 Spiriva with HandiHaler 18 mcg capsule, w/inhalation device 1 cap inhalation DAILY RF: 0 lidocaine [Lidocaine Pain Relief] 4 % Adhesive Patch,Medicated 1 patch transdermal DAILY Qty: 7 RF: 0 olanzapine 10 mg tablet 1 tab PO BEDTIME RF: 0 albuterol sulfate 2.5 mg /3 mL (0.083 %) solution for nebulization 1 amp inhalation TID PRN (Reason: Wheezing) RF: 0 amlodipine 10 mg Tablet 10 mg PO BEDTIME Qty: 30 RF: 0 nicotine 21 mg/24 hr Patch 24 Hour 21 mg transdermal DAILY Qty: 30 RF: 0 hydralazine 100 mg tablet 100 mg PO TID Qty: 90 RF: 0 polyethylene glycol 3350 17 gram Powder In Packet 17 g PO DAILY PRN (Reason: constipation) Qty: 30 RF: 0 bumetanide 2 mg Tablet 2 mg PO DAILY RF: 0 pantoprazole 40 mg Tablet,Delayed Release (Dr/Ec) 40 mg PO DAILY RF: 0 melatonin 5 mg Tablet 5 mg PO BEDTIME PRN (Reason: Sleep) RF: 0 [employer]OPER-Sharifa Rx 1-60-300 mg-mg-mcg Tablet 1 tab PO DAILY RF: 0 Flovent HFA 110 mcg/actuation Hfa Aerosol Inhaler 1 puff INHALATION BID RF: 0 Lantus U-100 Insulin 100 unit/mL Solution 14 unit subcut DAILY Qty: 3 RF: 0 sennosides [senna] 8.6 mg tablet 1 - 2 tab PO BEDTIME PRN (Reason: constipation) RF: 0 mirtazapine 7.5 mg tablet 1 tab PO BEDTIME RF: 0 acetaminophen 325 mg Capsule 650 mg PO Q6H PRN (Reason: Pain) RF: 0 Nephro-Sharifa Rx 1-60-300 mg-mg-mcg Tablet 1 tab PO DAILY RF: 0 sodium citrate 4 % (3 mL) Syringe 6 ml INTRA-CATHETER MOWEFR RF: 0 Retacrit 10,000 unit/mL Solution 10,000 unit SUBCUT WE RF: 0 Discharge Orders: Discharge Order (Routine); Ordered 05/14/21 Ordered By: Franck James Diet: advance to usual diet Activity on Discharge: As tolerated Stand Alone Forms: Patient Portal Discharge page Care Plan Goals: avoid hospitalizations Health Concerns: esrd, htn Plan of Treatment: continue HD compliance Assessment: see above
[2021-05-14] MEDS: Sodium Zirconium Cyclosilicate 5 GM POWD.PACK PO (10:19)
--- NOTE | 2021-05-14 10:44 | MHC.CM.PN ---
Patient has been medically cleared for dc to home today, no skilled services required per MD.CM spoke with Patient's Son/Ke at [phone], who instructed CM to speak with Patient's TIER IN. CM met with Patient who provided CM with her [facility] # and name (CM spoke with SAHARA/Chelly at [phone], who will be providing transportation home around 1PM today). Patient's HD should resume as before at [facility].Patient is aware of and in agreement with the dc plan.
[2021-05-14 11:18] LABS: Glucose, Whole Blood 121 mg/dL (60-115)
--- NOTE | 2021-05-16 12:47 | CONS_ITS ---
DATE OF SERVICE: 05/11/2021 HISTORY OF PRESENT ILLNESS: I was asked to see patient to assist in evaluation and management of patient's dialysis needs in the setting of being presented to the hospital with shortness of breath. In summary, the patient is a 66-year-old ESRD patient, who normally dialyzed on Sunday, , and Sunday, but missed her treatment on Sunday. She presents to the hospital complaining of shortness of breath and noted to have a systolic blood pressure over 200. The patient says her main complaint is shortness of breath. She denies any chest pain, fever, sweats or chills. It is unclear why she missed her dialysis treatment on Sunday. PAST MEDICAL HISTORY: Notable for ESRD, anemia, diabetes, congestive heart failure, hypertension, noncompliance with medications and missing dialysis treatments. MEDICATIONS ON ADMISSION: Noted in the admitting notes. CURRENT MEDICATIONS: Noted on the JUL. FAMILY HISTORY: Known for hypertension. SOCIAL HISTORY: She is a nonsmoker, nondrinker. No illicit drug use. REVIEW OF SYSTEMS: As noted above. PHYSICAL EXAMINATION: VITAL SIGNS: Blood pressure 200/100. HEAD: Atraumatic and normocephalic. Mucous membranes are moist. LUNGS: Rales at the bases bilaterally with few wheezes. ABDOMEN: Soft, nontender. Good bowel sounds. No CVA tenderness. EXTREMITIES: Shows 1+ edema. She has a PermCath in place. LABORATORY DATA: Labs show hemoglobin 8.4, hematocrit 26.7, white blood cell count 7.8. Sodium 134, potassium 5.7, chloride 98, bicarb 23. IMPRESSION: 1. End-stage renal disease. Patient admitted with shortness of breath, having missed dialysis treatment and being markedly hypertensive. a. Plan: End-stage renal disease. We will dialyze her today and then again tomorrow. Get her back on Sunday, , and Sunday schedule. 2. Shortness of breath due to volume overload and severe hypertension. We are controlling blood pressure and back on dialysis today, which should help. 3. Anemia. 4. Noncompliance. 5. Hyperkalemia. This will be corrected with the dialysis and low-potassium bath. We will follow the patient closely with the team. She may need to have increased blood pressure medications added to her regimen to get her blood pressure under control. With warmest regards, MD BABAK White/GRACIE / [id number]
== END 2021-05-14 14:38 | disposition home or self-care (01) | DRG 194 ==
LOC: HO.ED 12:59 → HO.EDOVER 13:04 → HO.IMC 15:33
PROVIDERS: Physician Assistant; Admitting Provider Internal Medicine; Emergency Provider Emergency Medicine Emergency Medical Services; PCP Internal Medicine; Visit Provider Internal Medicine
DX: I13.2 Hypertensive heart and chronic kidney disease with heart failure and with stage 5 chronic kidney disease, or end stage renal disease (principal); N18.6 End stage renal disease; E11.22 Type 2 diabetes mellitus with diabetic chronic kidney disease; D63.1 Anemia in chronic kidney disease; I16.0 Hypertensive urgency; I50.33 Acute on chronic diastolic (congestive) heart failure; F17.210 Nicotine dependence, cigarettes, uncomplicated; E87.1 Hypo-osmolality and hyponatremia; N26.9 Renal sclerosis, unspecified; Z71.6 Tobacco abuse counseling; M19.90 Unspecified osteoarthritis, unspecified site; Z99.2 Dependence on renal dialysis; Z91.15 Patient's noncompliance with renal dialysis; Z79.4 Long term (current) use of insulin; Z79.82 Long term (current) use of aspirin; Z79.899 Other long term (current) drug therapy
CPT/HCPCS: 36415; 71045; 80048; 80076; 82947; 83735; 84100; 85025; 85027; 87635; 90999; 93005; 94640; 94664; 99219; 99285; 99291; J1170

== ENCOUNTER 2021-06-10 02:37 | Inpatient (IN) | payer OTHER, SELFPAY ==
[2021-06-10] VITALS (9 sets, daily range): BP systolic 132–213; BP diastolic 56–93; PULSE 83–95; RESP 13–20; TEMP 36.3–37; O2SAT 95–99; BMI 31.4
--- NOTE | ~2021-06-10 | XR_ITS ---
EXAMINATION: XR CHEST CLINICAL INFORMATION: Dialysis COMPARISON: 05/11/2021 TECHNIQUE: Frontal view of the chest was obtained. FINDINGS: Central venous catheter terminates near the cavoatrial junction. The lungs are well expanded. There is no focal consolidation, edema, or effusion. No pneumothorax. The cardiomediastinal silhouette is within normal limits. No acute osseous abnormality. XR/XR chest 1V IMPRESSION: Clear lungs.
--- NOTE | 2021-06-10 02:56 | ECG_ITS ---
Test Reason : N/V Blood Pressure : / mmHG Vent. Rate : 087 BPM Atrial Rate : 087 BPM P-R Int : 186 ms QRS Dur : 078 ms QT Int : 366 ms P-R-T Axes : 040 -21 027 degrees QTc Int : 440 ms Normal sinus rhythm Possible Left atrial enlargement Left ventricular hypertrophy with repolarization abnormality ( Jona product ) Abnormal ECG When compared with ECG of 11-MAY-2021 10:59, Non-specific change in ST segment in Lateral leads Referred By: Moira Freeman Electronically Signed By:
--- NOTE | 2021-06-10 03:18 | ED.GENADULT ---
HPI - General Adult General Chief complaint: General Medical Stated complaint: VOMITING AND HEADACHE Time Seen by Provider: 06/10/21 02:55 Source: patient and photographic spotter Mode of arrival: EMS History of Present Illness HPI narrative: 66-year-old female with significant past medical history of diabetes, ESRD on dialysis who presents via EMS for 2 days nausea and vomiting denies any diarrhea, shortness of breath, chest pain/palpitations, fevers, chills. Patient states that due to not feeling well she missed her dialysis appointment yesterday and has been unable to take her medications. Related Data Home Medications Medication Instructions Recorded Confirmed aspirin 81 mg tablet,delayed 81 mg PO DAILY 10/22/20 05/11/21 release buprenorphine 8 mg-naloxone 2 mg 1 strip SUBLINGUAL BID 10/22/20 05/11/21 sublingual film (Suboxone) clonidine HCl 0.1 mg tablet 0.1 mg PO TID 10/22/20 05/11/21 diclofenac sodium 1 % topical gel 2 g TOPICAL QID 10/22/20 05/11/21 diltiazem HCl 180 mg 180 mg PO DAILY 10/22/20 05/11/21 capsule,extended release 24 hr docusate sodium 100 mg capsule 1 - 2 cap PO BEDTIME PRN 10/22/20 05/11/21 escitalopram oxalate 5 mg tablet 5 mg PO DAILY 10/22/20 05/11/21 insulin lispro 100 unit/mL See Protocol SUBCUT BIDAC 10/22/20 05/11/21 subcutaneous pen (Humalog KwikPen (U-100) Insulin) tiotropium bromide 18 mcg capsule 1 cap INHALATION DAILY 10/22/20 05/11/21 with inhalation device (Spiriva with HandiHaler) trazodone 100 mg tablet 1 - 2 tab PO BEDTIME 10/22/20 05/11/21 albuterol sulfate 1 amp INHALATION TID PRN 02/25/21 05/11/21 olanzapine 10 mg tablet 1 tab PO BEDTIME 02/25/21 05/11/21 bumetanide 2 mg tablet 2 mg PO DAILY 04/15/21 05/11/21 fluticasone propionate 110 1 puff INHALATION BID 04/15/21 05/11/21 mcg/actuation HFA aerosol inhaler (Flovent HFA) melatonin 5 mg tablet 5 mg PO BEDTIME PRN 04/15/21 05/11/21 pantoprazole 40 mg tablet,delayed 40 mg PO DAILY 04/15/21 05/11/21 release vitamin B comp no.3-folic acid 1 1 tab PO DAILY 04/15/21 05/11/21 mg-vit C 60 mg-biotin 300 mcg tablet (RECEPTIONIST TELEPHONE OPERATOR-[facility]) acetaminophen 325 mg capsule 650 mg PO Q6H PRN 05/11/21 05/11/21 epoetin kateryna-epbx 10,000 unit/mL 10,000 unit SUBCUT WE 05/11/21 05/11/21 injection solution (Retacrit) mirtazapine 7.5 mg tablet 1 tab PO BEDTIME 05/11/21 05/11/21 sennosides 8.6 mg tablet (senna) 1 - 2 tab PO BEDTIME PRN 05/11/21 05/11/21 sodium citrate 4 % (3 mL) 6 ml INTRA-CATHETER MOWEFR 05/11/21 05/11/21 intra-catheter injection syringe vitamin B comp no.3-folic acid 1 1 tab PO DAILY 05/11/21 05/11/21 mg-vit C 60 mg-biotin 300 mcg tablet (Nephro-[facility]) Previous Rx's Medication Instructions Recorded amlodipine 10 mg tablet 10 mg PO BEDTIME #30 tab 03/07/21 hydralazine 100 mg tablet 100 mg PO TID #90 tab 03/07/21 nicotine 21 mg/24 hr daily 21 mg TRANSDERMAL DAILY #30 ea 03/07/21 transdermal patch polyethylene glycol 3350 17 gram 17 g PO DAILY PRN #30 ea 03/07/21 oral powder packet insulin glargine 100 unit/mL 14 unit (0.14 mL) SUBCUT DAILY #3 04/19/21 subcutaneous solution (Lantus ml U-100 Insulin) lidocaine 4 % topical patch 1 patch TRANSDERMAL DAILY #7 ea 04/25/21 (Lidocaine Pain Relief) Allergies Allergy/AdvReac Type Severity Reaction Status Date / Time No Known Allergies Allergy Mild NOT Verified 12/14/20 11:50 APPLICABLE Review of Systems Review of Systems: Pertinent positives and negatives as stated in HPI 10 point review of systems is otherwise negative. PMFSH Past Medical History Source: nursing notes reviewed Medical History Acute kidney injury superimposed on chronic kidney disease VANDANA (acute kidney injury) Anemia in chronic kidney disease CHF (congestive heart failure) Constipation Diabetes mellitus Diastolic congestive heart failure End-stage renal disease (ESRD) Essential hypertension HTN (hypertension) HTN (hypertension) Hypertension Non-compliance Normocytic anemia Surgical History No pertinent past surgical history Family History Family History Other Hypertension Social History Social History Household Members: None Housing: House Do you presently have visiting nurse or other home services: Yes Alcohol intake: unknown Patient Tobacco Use Status: Current everyday Tobacco user Tobacco use type: Cigarette Cigarette Packs Per Day: 1 Second Hand Smoke Exposure: No Use of substances other than those prescribed or required for medical reasons: Unknown Substance Use Type: Heroin Advance Directives: Yes Advance Directives on File: Yes Advance Directives Date on File: 04/20/21 service: No Current occupational status: disabled Physical Exam Vital Signs: Vital Signs: Last Vital Signs Temp 98.3 F 06/10/21 02:45 Pulse 85 06/10/21 06:00 Resp 15 06/10/21 06:00 BP 188/77 H 06/10/21 06:00 Pulse Ox 96 06/10/21 06:00 BMI result Body Mass Index 31.4 VITAL SIGNS: Reviewed. GENERAL: Well developed, well nourished, in no acute distress. HEAD: Normocephalic/atraumatic EYES: PERRLA, EOMI OROPHARYNX: no oral lesions noted, posterior pharynx clear NECK: Supple, no adenopathy LUNGS: Normal breath sounds. No adventitious sounds or accessory muscle use. SpO2<96>, patient has chest wall dialysis catheter without surrounding erythema or induration. CARDIOVASCULAR: Regular rate and rhythm without noted murmurs, no JVD or lower extremity edema. ABDOMEN: Soft, non-tender, non-distended with bowel sounds. MUSCULOSKELETAL: No tenderness, deformities, or effusions noted on gross inspection. EXTREMITIES: No cyanosis, clubbing or edema. SKIN: Inspection of the skin reveals no rashes NEUROLOGIC: Alert and oriented x 4. Strength and sensation to light touch were grossly intact x 4. Course Course Course Narrative: 66-year-old female with history and clinical presentation suggestive of mild gastroenteritis and no clinical suspicion for SBO given the benign abdominal exam and patient continuing to pass flatus. Patient is afebrile and there is no leukocytosis. Review of all investigations no evidence to suggest infectious etiology and patient has noted elevation in potassium/BUN/CR consistent with missing dialysis appointment. Review of EKGs without acute findings when compared to prior and initial attempts to provide antiemetics gave patient some relief but then she once again began developing nausea and vomiting. I did discuss the case with Nephrology who initially provided an outpatient/discharge plan involving 30 g of Kayexalate and a repeat BMP. But due to patient's persistent nausea and vomiting this case was discussed with the inpatient hospitalist who is agreeable for admission. Medical Decision Making Lab Data Result diagrams: 06/10/21 03:40 06/10/21 03:40 Labs: Lab Results 06/10/21 06/10/21 06/10/21 Range/Units 02:59 03:40 03:40 WBC 9.5 (4.8-10.8) X10*3/uL RBC 3.84 L D (4.20-5.50) X10*6/uL Hgb 11.2 L D (12.0-16.0) g/dl Hct 35.3 L D (37.0-47.0) % MCV 91.9 (80.0-98.0) fL MCH 29.2 (27.0-33.0) pg MCHC 31.7 (31.0-35.0) g/dl RDW 16.2 H (11.0-16.0) % Plt Count 255 (160-400) X10*3/uL MPV 9.1 L (9.4-12.3) fL Immature Gran % (Auto) 0.4 (0.0-0.4) % Neut % (Auto) 85.2 H (45-73) % Lymph % (Auto) 8.5 L (20-40) % [place] % (Auto) 4.6 (2-11) % Eos % (Auto) 1.1 (0-4) % Baso % (Auto) 0.2 (0-2) % Lymph # (Auto) 0.8 L (1.2-4.9) X10*3/uL [place] # (Auto) 0.4 (0.1-1.2) X10*3/uL Eos # (Auto) 0.1 (0.0-0.4) X10*3/uL Baso # (Auto) 0.0 (0.0-0.2) X10*3/uL Abs Immat Gran (auto) 0.04 H (0.00-0.03) X10*3/uL Absolute Neuts (auto) 8.1 (2.0-8.3) x10*3/uL Absolute Nucleated RBC 0.000 (0.0-0.012) X10*3/uL Nucleated RBC % (auto) 0.0 (0.0-0.2) /100WBC Sodium 129 L (135-145) mmol/L Potassium 6.0 H* (3.3-5.1) mmol/L Chloride 94 L (96-108) mmol/L Carbon Dioxide 20 L (22-29) mmol/L Anion Gap 21 H (12-20) BUN 36 H (9-16) mg/dL Creatinine 11.69 H* (0.5-1.4) mg/dL Estim Creat Clear Calc 4.4 Estimated GFR 3 Random Glucose 153 H (60-115) mg/dL Calcium 9.3 D (8.4-10.2) mg/dL Total Bilirubin 0.2 (0.0-1.0) mg/dL Direct Bilirubin < 0.2 (0.0-0.5) mg/dL AST 26 (5-31) U/L ALT 15 (0-31) U/L Alkaline Phosphatase 131 H (39-117) U/L Total Protein 7.2 (6.5-8.0) g/dL Albumin 3.9 (3.5-5.0) g/dL Lipase 39 (8-78) U/L COVID-19 (KRYSTINA) Negative (Negative) COVID-19 Clin Com See Note ECG Data Attestation: I personally reviewed and interpreted this ECG as follows: Prior ECG tracings: available for review Interpretation: Normal sinus rhythm, HR-83, no STEMI, PA/QRS/QTC are within normal limits. Discharge Plan Discharge Clinical Impression: Nausea & vomiting, End-stage renal disease (ESRD) Patient Disposition: Admitted As Inpatient Prescriptions: No Action trazodone 100 mg tablet 1 - 2 tab PO BEDTIME RF: 0 docusate sodium 100 mg capsule 1 - 2 cap PO BEDTIME PRN (Reason: constipation) RF: 0 diclofenac sodium 1 % gel 2 g topical QID RF: 0 buprenorphine-naloxone [Suboxone] 8-2 mg film 1 strip sublingual BID RF: 0 clonidine HCl 0.1 mg tablet 0.1 mg PO TID RF: 0 diltiazem HCl 180 mg capsule,extended release 24hr 180 mg PO DAILY RF: 0 aspirin 81 mg tablet,delayed release (DR/EC) 81 mg PO DAILY RF: 0 insulin lispro [Humalog KwikPen Insulin] 100 unit/mL insulin pen See Protocol unit subcut BIDAC RF: 0 escitalopram oxalate 5 mg tablet 5 mg PO DAILY RF: 0 Spiriva with HandiHaler 18 mcg capsule, w/inhalation device 1 cap inhalation DAILY RF: 0 lidocaine [Lidocaine Pain Relief] 4 % Adhesive Patch,Medicated 1 patch transdermal DAILY Qty: 7 RF: 0 olanzapine 10 mg tablet 1 tab PO BEDTIME RF: 0 albuterol sulfate 2.5 mg /3 mL (0.083 %) solution for nebulization 1 amp inhalation TID PRN (Reason: Wheezing) RF: 0 amlodipine 10 mg Tablet 10 mg PO BEDTIME Qty: 30 RF: 0 nicotine 21 mg/24 hr Patch 24 Hour 21 mg transdermal DAILY Qty: 30 RF: 0 hydralazine 100 mg tablet 100 mg PO TID Qty: 90 RF: 0 polyethylene glycol 3350 17 gram Powder In Packet 17 g PO DAILY PRN (Reason: constipation) Qty: 30 RF: 0 bumetanide 2 mg Tablet 2 mg PO DAILY RF: 0 pantoprazole 40 mg Tablet,Delayed Release (Dr/Ec) 40 mg PO DAILY RF: 0 melatonin 5 mg Tablet 5 mg PO BEDTIME PRN (Reason: Sleep) RF: 0 RECEPTIONIST TELEPHONE OPERATOR-[facility] 1-60-300 mg-mg-mcg Tablet 1 tab PO DAILY RF: 0 Flovent HFA 110 mcg/actuation Hfa Aerosol Inhaler 1 puff INHALATION BID RF: 0 Lantus U-100 Insulin 100 unit/mL Solution 14 unit subcut DAILY Qty: 3 RF: 0 sennosides [senna] 8.6 mg tablet 1 - 2 tab PO BEDTIME PRN (Reason: constipation) RF: 0 mirtazapine 7.5 mg tablet 1 tab PO BEDTIME RF: 0 acetaminophen 325 mg Capsule 650 mg PO Q6H PRN (Reason: Pain) RF: 0 Nephro-[facility] Rx 1-60-300 mg-mg-mcg Tablet 1 tab PO DAILY RF: 0 sodium citrate 4 % (3 mL) Syringe 6 ml INTRA-CATHETER MOWEFR RF: 0 Retacrit 10,000 unit/mL Solution 10,000 unit SUBCUT WE RF: 0
[2021-06-10] MEDS: Ondansetron ODT 4 MG TAB.RAPDIS TRANSLINGU (03:33)
[2021-06-10] MEDS: amLODIPine Besylate 10 MG TABLET PO ×2 (03:33→20:20)
[2021-06-10 03:34] LABS: COVID-19 Test Negative (Negative); IDNOW Serial# 9DD0AD1C
[2021-06-10 03:46] LABS: MANUAL DIFF FLAG NO
[2021-06-10 03:47] LABS: Basophils Percent Auto 0.2 % (0-2); Eosinophils Absolute Auto 0.1 X10*3/uL (0.0-0.4); Eosinophils Percent Auto 1.1 % (0-4); Hematocrit 35.3 % (37.0-47.0); Hemoglobin 11.2 g/dl (12.0-16.0); Imm Gran Abs Auto 0.04 X10*3/uL (0.00-0.03); Imm Gran Pct Auto 0.4 % (0.0-0.4); Lymphocytes Absolute Auto 0.8 X10*3/uL (1.2-4.9); Lymphocytes Percent Auto 8.5 % (20-40); Mean Corpuscular HGB Conc 31.7 g/dl (31.0-35.0); Mean Corpuscular Hemoglobin 29.2 pg (27.0-33.0); Mean Corpuscular Volume 91.9 fL (80.0-98.0); Mean Platelet Volume 9.1 fL (9.4-12.3); Monocytes Absolute Auto 0.4 X10*3/uL (0.1-1.2); Monocytes Percent Auto 4.6 % (2-11); Neutrophils Absolute Auto 8.1 x10*3/uL (2.0-8.3); Neutrophils Percent Auto 85.2 % (45-73); Platelet Count 255 X10*3/uL (160-400); Red Blood Count 3.84 X10*6/uL (4.20-5.50); Red Cell Distribution Width 16.2 % (11.0-16.0); White Blood Count 9.5 X10*3/uL (4.8-10.8)
[2021-06-10 04:26] LABS: Alanine Aminotransferase 15 U/L (0-31); Albumin Level 3.9 g/dL (3.5-5.0); Alkaline Phosphatase 131 U/L (39-117); Anion Gap 21 (12-20); Aspartate Amino Transferase 26 U/L (5-31); Bilirubin Direct < 0.2 mg/dL (0.0-0.5); Bilirubin Total 0.2 mg/dL (0.0-1.0); Blood Urea Nitrogen 36 mg/dL (9-16); Calcium 9.3 mg/dL (8.4-10.2); Carbon Dioxide 20 mmol/L (22-29); Chloride 94 mmol/L (96-108); Creatinine Clr Calc Pharmacy 4.4; Estimated Glomerular Filt Rate 3; Glucose Random 153 mg/dL (60-115); Lipase 39 U/L (8-78); Sodium 129 mmol/L (135-145); Total Protein 7.2 g/dL (6.5-8.0)
[2021-06-10] MEDS: Sodium Polystyrene Sulfon/Sorb 15 GM/60 ML ORAL.SUSP 30 GM PO (06:46)
[2021-06-10] MEDS: Calcium Gluconate/NaCl,Iso-Osm 2 GM/100 ML PLAST..BAG IV (07:29)
--- NOTE | 2021-06-10 08:27 | PM.IMHP ---
History of Present Illness Date of Service: 06/10/21 Attending physician on admission: Aracelis Zuleta Chief Complaint: Nausea, vomiting and generalized weakness 66-year-old Lithuanian-speaking female with past medical history of end-stage renal disease on hemodialysis, diabetes mellitus, congestive heart failure, hypertension presented to [facility] due to symptoms of generalized weakness of 1 day duration therefore patient skipped hemodialysis on , and developed significant nausea vomiting since early this morning, patient denies associated abdominal pain no fever no chills no diarrhea denies any sick contacts no URI symptoms, workup in the emergency room showed elevated potassium initially 5.5, repeat showed worsening to 6, EKG showed no acute ischemic changes, with creatinine of 11.7, vitals showed an elevated blood pressure 213/93 patient treated in the emergency room with Kayexalate, calcium gluconate, Norvasc but since patient nausea persisted with worsening hyperkalemia it was decided to admit patient for inpatient hemodialysis. Review of Systems Review of Systems: General generalized weakness, no headache, no dizziness no fever chills. CVS no chest pain, no palpitation. Respiratory no cough, mild shortness of breath Gastrointestinal nausea and vomiting no urinary urgency no frequency Skin no rash Yes all other systems are reviewed and are negative [facility] Medical History Acute kidney injury superimposed on chronic kidney disease VANDANA (acute kidney injury) Anemia in chronic kidney disease CHF (congestive heart failure) Constipation Diabetes mellitus Diastolic congestive heart failure End-stage renal disease (ESRD) Essential hypertension HTN (hypertension) HTN (hypertension) Hypertension Non-compliance Normocytic anemia Family History Other Hypertension Surgical History No pertinent past surgical history Social History Household Members: None Housing: House Do you presently have visiting nurse or other home services: Yes Alcohol intake: unknown Patient Tobacco Use Status: Current everyday Tobacco user Tobacco use type: Cigarette Cigarette Packs Per Day: 1 Second Hand Smoke Exposure: No Use of substances other than those prescribed or required for medical reasons: Unknown Substance Use Type: Heroin Advance Directives: Yes Advance Directives on File: Yes Advance Directives Date on File: 04/20/21 service: No Current occupational status: disabled Meds Allergies Allergy/AdvReac Type Severity Reaction Status Date / Time No Known Allergies Allergy Mild NOT Verified 12/14/20 11:50 APPLICABLE Active Medications: Current Medications Calcium Gluconate (Calcium Gluconate) 2 gm in 100 mls @ 50 mls/hr IV ONCE ONE Stop: 06/10/21 09:06 Last Admin: 06/10/21 07:29 Dose: 50 mls/hr Documented by: Pharmacy Consult (Consult Rx Perform Med Rec) 1 each MISCELLANE ONCE PRN PRN Reason: Consult order Home Medications Medication Instructions Recorded Confirmed Last Taken Type aspirin 81 mg tablet,delayed 81 mg PO DAILY 10/22/20 06/10/21 Unknown History release buprenorphine 8 mg-naloxone 2 mg 1 strip SUBLINGUAL BID 10/22/20 06/10/21 Unknown History sublingual film (Suboxone) clonidine HCl 0.1 mg tablet 0.1 mg PO TID 10/22/20 06/10/21 Unknown History diltiazem HCl 180 mg 180 mg PO DAILY 10/22/20 06/10/21 Unknown History capsule,extended release 24 hr insulin lispro 100 unit/mL See Protocol SUBCUT BIDAC 10/22/20 06/10/21 Unknown History subcutaneous pen (Humalog KwikPen (U-100) Insulin) tiotropium bromide 18 mcg capsule 1 cap INHALATION DAILY 10/22/20 06/10/21 Unknown History with inhalation device (Spiriva with HandiHaler) trazodone 100 mg tablet 1 - 2 tab PO BEDTIME 10/22/20 06/10/21 Unknown History olanzapine 10 mg tablet 1 tab PO BEDTIME 02/25/21 06/10/21 Unknown History bumetanide 2 mg tablet 2 mg PO DAILY 04/15/21 06/10/21 Unknown History fluticasone propionate 110 1 puff INHALATION BID 04/15/21 06/10/21 Unknown History mcg/actuation HFA aerosol inhaler (Flovent HFA) melatonin 5 mg tablet 5 mg PO BEDTIME PRN 04/15/21 06/10/21 Unknown History pantoprazole 40 mg tablet,delayed 40 mg PO DAILY 04/15/21 06/10/21 Unknown History release vitamin B comp no.3-folic acid 1 1 tab PO DAILY 04/15/21 06/10/21 Unknown History mg-vit C 60 mg-biotin 300 mcg tablet (CH[employer]EN [employer]ER[facility]) epoetin kateryna-epbx 10,000 unit/mL 10,000 unit SUBCUT WE 05/11/21 06/10/21 Unknown History injection solution (Retacrit) sennosides 8.6 mg tablet (senna) 1 - 2 tab PO BEDTIME PRN 05/11/21 06/10/21 Unknown History sodium citrate 4 % (3 mL) 6 ml INTRA-CATHETER MOWEFR 05/11/21 06/10/21 Unknown History intra-catheter injection syringe acetaminophen 500 mg tablet 500 mg PO Q8H PRN 06/10/21 06/10/21 Unknown History mirtazapine 15 mg tablet 1 tab PO BEDTIME 06/10/21 06/10/21 Unknown History nicotine 14 mg/24 hr daily 14 mg TOPICAL DAILY 06/10/21 06/10/21 Unknown History transdermal patch sevelamer carbonate 800 mg tablet 1 tab PO TID 06/10/21 06/10/21 Unknown History triamcinolone acetonide 0.025 % 1 appl TOPICAL BID 06/10/21 06/10/21 Unknown History topical cream Physical Exam Vital Signs and Narrative: Vital Signs: Last Vital Signs Temp 98.3 F 06/10/21 02:45 Pulse 85 06/10/21 06:00 Resp 15 06/10/21 06:00 BP 188/77 H 06/10/21 06:00 Pulse Ox 96 06/10/21 06:00 BMI result Body Mass Index 31.4 General awake alert in mild distress with persistent nausea and intermittent vomiting HEENT pupils equal round reactive light and accommodation Neck supple no JVD. CVS regular rate rhythm, Respiratory lungs clear to auscultation, no respiratory distress, few basilar crackles Gastrointestinal abdomen soft, nontender, obese, bowel sounds audible, no guarding , no rigidity. Extremities trace edema. Neuro nonfocal Skin no rash Psych appropriate affect Back no CVA tenderness Results Labs CBC and Chem 7: 06/10/21 03:40 06/10/21 03:40 Labs: Laboratory Results - last 24 hr 06/10/21 06/10/21 06/10/21 02:59 03:40 03:40 MCV 91.9 MCH 29.2 MCHC 31.7 RDW 16.2 H Plt Count 255 MPV 9.1 L Immature Gran % (Auto) 0.4 Neut % (Auto) 85.2 H Lymph % (Auto) 8.5 L [place] % (Auto) 4.6 Eos % (Auto) 1.1 Baso % (Auto) 0.2 Lymph # (Auto) 0.8 L [place] # (Auto) 0.4 Eos # (Auto) 0.1 Baso # (Auto) 0.0 Abs Immat Gran (auto) 0.04 H Absolute Neuts (auto) 8.1 Absolute Nucleated RBC 0.000 Nucleated RBC % (auto) 0.0 Anion Gap 21 H Estim Creat Clear Calc 4.4 Estimated GFR 3 Random Glucose 153 H Calcium 9.3 D Total Bilirubin 0.2 Direct Bilirubin < 0.2 AST 26 ALT 15 Alkaline Phosphatase 131 H Total Protein 7.2 Albumin 3.9 Lipase 39 COVID-19 (KRYSTINA) Negative COVID-19 Clin Com See Note Imaging Radiologist's Impressions: Impressions Chest X-Ray 06/10/21 04:20 IMPRESSION: Clear lungs. Assessment and Plan (1) Nausea & vomiting: Status: Acute (2) End-stage renal disease (ESRD): Status: Acute (3) Volume overload: Qualifiers: Hypervolemia type: other Qualified Code(s): E87.79 - Other fluid overload Status: Acute (4) Hypertensive urgency: Status: Acute (5) ESRD (end stage renal disease): Status: Acute 66-year-old Lithuanian-speaking female recently started on hemodialysis on Sunday and Saturdays developed generalized weakness therefore skip to hemodialysis on and presented to [facility] due to symptoms of nausea and vomiting that started this morning as per patient she has been compliant with her home medications in the emergency room noted to have significantly elevated blood pressure and hyperkalemia despite treatment with Kayexalate calcium gluconate and antiemetics patient was noted to have worsening hyperkalemia therefore being admitted to [facility] for hemodialysis due to uremic symptoms and hypertensive urgency. Intractable nausea vomiting likely related to uremia due to skipping hemodialysis, will admit patient and obtained nephrology consult for inpatient hemodialysis continue symptomatic treatment with anti emetics. Hyperkalemia likely due to skipping hemodialysis/follow electrolytes closely monitor on telemetry for arrhythmia, EKG showed no acute abnormality at present Arrange for hemodialysis Follow labs Hypertensive urgency resume home medications follow BP closely End-stage renal disease recently started on hemodialysis in February receive hemodialysis Sunday and Sunday Obtain nephrology consultation Resume hemodialysis as before patient noted to be in a mild fluid overload Generalized weakness Likely due to multiple chronic medical issues, COVID-19 negative, stable hematocrit, follow clinical course Diabetes mellitus continue home insulin will add insulin sliding scale and placed on diabetic diet Opioid use disorder continue Suboxone Code status full code DVT prophylaxis with heparin subQ Quality Stroke Does the patient have a stroke diagnosis?: No VTE Prior VTE?: No VTE Risk Level:: Medical - moderate - high VTE Device Contraindication: Treatment Not Indicated VTE Drug Contraindication: N/A - Med Ordered
[2021-06-10] MEDS: Heparin Sodium,Porcine 5,000 UNIT/ML VIAL 5000 UNIT SUBCUT ×2 (10:02→20:19)
[2021-06-10 10:13] LABS: Glucose, Whole Blood 108 mg/dL (60-115)
--- NOTE | 2021-06-10 10:24 | PHA.MEDREC ---
Pharmacy Consult ? Medication Reconciliation Pharmacy has completed the medication reconciliation.
[2021-06-10] MEDS: Nicotine 21 MG PATCH.TD24 TRANSDERMA (11:20)
[2021-06-10] MEDS: dilTIAZem HCL CD 180 MG CAP.ER.24H PO (11:21)
[2021-06-10] MEDS: Buprenorphine/Naloxone 8/2 mg FILM 1 FILM SUBLINGUAL ×2 (11:21→20:20)
[2021-06-10] MEDS: Aspirin Enteric Coated 81 MG TABLET.DR PO (11:21)
[2021-06-10 12:18] LABS: Glucose, Whole Blood 144 mg/dL (60-115)
[2021-06-10] MEDS: Acetaminophen 325 MG TABLET 650 MG PO (15:39)
[2021-06-10] MEDS: ondansetron HCL 4 MG/2 ML VIAL IVPUSH (16:13)
[2021-06-10 18:11] LABS: Glucose, Whole Blood 110 mg/dL (60-115)
--- NOTE | 2021-06-10 18:55 | CONS_ITS ---
DATE OF SERVICE: 06/10/2021 HISTORY OF PRESENT ILLNESS: I was asked to see the patient to assist in evaluation and management of patient's dialysis needs in the setting of coming into the hospital, complaining of nausea, vomiting, generalized weakness. She missed her dialysis treatment yesterday. She is normally Sunday, , Sunday dialysis patient. Her main symptoms were nausea, vomiting, which prompted her to come to the hospital. She denies any chest pain, fever, sweats, or chills. PAST MEDICAL HISTORY: Notable for ESRD, maintained on dialysis as mentioned; anemia; congestive heart failure; diabetes; diastolic dysfunction of the heart; hypertension. MEDICATIONS ON ADMISSION: Noted in admitting notes. CURRENT MEDICATIONS: Noted in the MAR. ALLERGIES: SHE HAS NO KNOWN DRUG ALLERGIES. SOCIAL HISTORY: She has a history of being a cigarette smoker. No alcohol or illicit drug use. FAMILY HISTORY: Hypertension. REVIEW OF SYSTEMS: As noted above. PHYSICAL EXAMINATION: VITAL SIGNS: Blood pressure 150/80 with a heart rate in the 80s. HEENT: Head is atraumatic, normocephalic. Neck is supple. Mucous membranes are moist. CHEST: She has a PermCath in place. LUNGS: Breath sounds bilaterally. CARDIAC: Regular rate and rhythm. ABDOMEN: Soft, nontender. EXTREMITIES: Shows no edema. LABORATORY DATA: Hemoglobin 11.2, hematocrit 35.3, white blood cell count 9.5, platelet count 255. Sodium 129, potassium 6, chloride 94, bicarb 20. IMPRESSION AND PLAN: End-stage renal disease patient admitted with nausea, vomiting, and feeling unwell. 1. End-stage renal disease. We dialyzed today for 3 hours. She missed her treatment on and then go ahead and dialyze her tomorrow again for 3 hours to get her back on TTS schedule. 2. Nausea, vomiting, gastrointestinal upset. These seem to have been ongoing on and off problems. She may need further GI evaluation. 3. Hyperkalemia. We will dialyze on a 1K bath and that should help along with a low-potassium diet. 4. We will follow the patient closely with the team as we dialyze her and try and get her back to her baseline. MD BAABK White/GRACIE / [phone]
[2021-06-10 20:04] LABS: Glucose, Whole Blood 174 mg/dL (60-115)
[2021-06-10] MEDS: hydrALAZINE HCl 50 MG TABLET 100 MG PO (20:20)
[2021-06-10] MEDS: cloNIDine HCL 0.1 MG TABLET PO (20:20)
[2021-06-10] MEDS: OLANZapine 10 MG TABLET PO (20:20)
[2021-06-10] MEDS: Insulin Lispro 100 UNIT/ML 3 ML VIAL SUBCUT (20:20)
[2021-06-10] MEDS: traZODone HCL 100 MG TABLET PO (20:20)
[2021-06-10] MEDS: Mirtazapine 15 MG TABLET PO (20:20)
[2021-06-10] MEDS: Melatonin 3 MG TABLET 6 MG PO (21:24)
--- NOTE | 2021-06-10 23:09 | PC.NURSE ---
Assumed care of pt at 2300. Pt resting in bed and in NAD. Requesting snacks and juice repeatedly, per day shift pt ate dinner and has had sandwiches and copious fluids in the last few hours. Pt encouraged to try to sleep, states she cannot, watching TV and making phone calls instead. Awaiting inpatient bed assignment
[2021-06-11] MEDS: Acetaminophen 325 MG TABLET 650 MG PO (00:11)
[2021-06-11] MEDS: diphenhydrAMINE HCL 25 MG TABLET PO (01:11)
--- NOTE | 2021-06-11 04:09 | PC.NURSE ---
Pt switched to private room d/t disturbing other patients. Educated repeatedly gis application developer light use but continues to exit room to express needs. Requesting juice approx every 10 minutes. Pt also not wearing mask when out of room despite multiple attempts to explain importance of infection prevention. Pt able to unplug own leads when ambulating but states she is not able to reattach leads to monitor. On recent assessment pt had removed leads and stickers altogether, refusing to be reattached at this time. Pt has been medicated per JUL for sleep and anxiety w/o success.
--- NOTE | 2021-06-11 06:36 | PC.NURSE ---
Pt sleeping at this time, AM vitals deferred to allow for uninterrupted sleep d/t previous restlessness
[2021-06-11 06:39] VITALS: RESP 17
[2021-06-11 07:32] LABS: Glucose, Whole Blood 90 mg/dL (60-115)
[2021-06-11] MEDS: Fluticasone Propionate 100 MCG BLST.W.DEV 1 PUFF INHALE (07:43)
[2021-06-11 07:46] VITALS: PULSE 95; RESP 18; O2SAT 99
[2021-06-11] MEDS: dilTIAZem HCL CD 180 MG CAP.ER.24H PO (07:54)
[2021-06-11] MEDS: Bumetanide 1 MG TABLET 2 MG PO (07:54)
[2021-06-11] MEDS: Aspirin Enteric Coated 81 MG TABLET.DR PO (07:54)
[2021-06-11] MEDS: Nicotine 21 MG PATCH.TD24 TRANSDERMA (07:55)
[2021-06-11] MEDS: Sevelamer Carbonate Tablet 800 MG TABLET PO (07:55)
[2021-06-11] MEDS: hydrALAZINE HCl 50 MG TABLET 100 MG PO (07:55)
[2021-06-11] MEDS: cloNIDine HCL 0.1 MG TABLET PO (07:55)
[2021-06-11] MEDS: Buprenorphine/Naloxone 8/2 mg FILM 1 FILM SUBLINGUAL (07:56)
[2021-06-11] MEDS: Omeprazole 40 MG CAPSULE.DR PO (08:00)
--- NOTE | 2021-06-11 10:04 | PC.NURSE ---
pt went to dialysis this am, currently still off unit
--- NOTE | 2021-06-11 12:18 | P.DS_ITS ---
DS: Providers Provider Date of Service: 06/11/21 Date of admission: 06/10/21 08:25 Primary care physician: Sammy Vicente MD Consults: 06/10/21 07:44 Consult to Nephrology Routine Consulting Provider: Clive Lange Reason for consultation: esrd on HD/hyperkalemia Has provider been notified: No DS: Diagnosis Discharge Diagnosis (1) Nausea & vomiting: Status: Acute (2) End-stage renal disease (ESRD): Status: Acute (3) Volume overload: Status: Acute (4) Hypertensive urgency: Status: Acute (5) ESRD (end stage renal disease): Status: Acute DS: Summary Hospital Course Hospital Course: Patient was admitted for intractable nausea vomiting, hypertensive urgency, hyperkalemia due to missing hemodialysis. Patient's symptoms improved with antiemetics and hemodialysis, blood pressure returned to normal. Patient is feeling much better is requesting to be discharged home. She has been educated on importance of adherence to dialysis and will be discharged home. Time Spent with Patient Time attestation: Total time spent providing and/or coordinating discharge services: Discharge coordination time: Greater than 30 minutes Quality: Stroke Does the patient have a stroke diagnosis?: No Physical Exam Vital Signs: Vital Signs: Last Vital Signs Temp 98.1 F 06/10/21 20:18 Pulse 95 06/11/21 07:46 Resp 18 06/11/21 07:46 BP 132/56 L 06/10/21 23:31 Pulse Ox 98 06/10/21 23:31 BMI result Body Mass Index 31.4 General: AO X 3, no acute distress Resp: CTA bilateral, no accessory muscles used CVS: S1,S2,RRR GI: soft, non tender, non distended Neuro: motor grossly intact, alert Psych: appropriate affect, appropriate insight DS: Data Data Completed and Pending Completed studies during hospitalization [Text1]: Procedures Excision of Left Kidney, Percutaneous Approach, Diagnostic (02/25/21) Excision of Right Kidney, Percutaneous Approach, Diagnostic (10/22/20) Insertion of Infusion Device into Superior Vena Cava, Percutaneous Approach (02/25/21) Insertion of Tunneled Vascular Access Device into Chest Subcutaneous Tissue and Fascia, Percutaneous Approach (02/25/21) Performance of Urinary Filtration, Intermittent, Less than 6 Hours Per Day (05/11/21) Transfusion of Nonautologous Red Blood Cells into Peripheral Vein, Percutaneous Approach (02/25/21) Labs on day of discharge: Laboratory Results - last 24 hr 06/10/21 06/10/21 06/10/21 12:15 18:08 20:01 POC Glucose 144 H 110 174 H 06/11/21 07:11 POC Glucose 90 Discharge Plan Discharge Patient Disposition: Home Health Service Discharge Diagnosis: hypertensive urgency, nausea, hyperkalemia Referrals: Sammy Vicente MD [Primary Care Provider] - 1 Week Discharge Medications: Continued trazodone 100 mg tablet 1 - 2 tab PO BEDTIME RF: 0 buprenorphine-naloxone [Suboxone] 8-2 mg film 1 strip sublingual BID RF: 0 clonidine HCl 0.1 mg tablet 0.1 mg PO TID RF: 0 diltiazem HCl 180 mg capsule,extended release 24hr 180 mg PO DAILY RF: 0 aspirin 81 mg tablet,delayed release (DR/EC) 81 mg PO DAILY RF: 0 insulin lispro [Humalog KwikPen Insulin] 100 unit/mL insulin pen See Protocol unit subcut BIDAC RF: 0 Spiriva with HandiHaler 18 mcg capsule, w/inhalation device 1 cap inhalation DAILY RF: 0 nicotine 14 mg/24 hr patch 24 hour 14 mg topical DAILY RF: 0 acetaminophen 500 mg Tablet 500 mg PO Q8H PRN (Reason: Pain, Mild) RF: 0 triamcinolone acetonide 0.025 % cream 1 appl topical BID RF: 0 mirtazapine 15 mg tablet 1 tab PO BEDTIME RF: 0 sevelamer carbonate 800 mg tablet 1 tab PO TID RF: 0 olanzapine 10 mg tablet 1 tab PO BEDTIME RF: 0 amlodipine 10 mg Tablet 10 mg PO BEDTIME Qty: 30 RF: 0 hydralazine 100 mg tablet 100 mg PO TID Qty: 90 RF: 0 bumetanide 2 mg Tablet 2 mg PO DAILY RF: 0 pantoprazole 40 mg Tablet,Delayed Release (Dr/Ec) 40 mg PO DAILY RF: 0 melatonin 5 mg Tablet 5 mg PO BEDTIME PRN (Reason: Sleep) RF: 0 BIOINFORMATICS DEVELOPER-Sharifa Rx 1-60-300 mg-mg-mcg Tablet 1 tab PO DAILY RF: 0 Flovent HFA 110 mcg/actuation Hfa Aerosol Inhaler 1 puff INHALATION BID RF: 0 Lantus U-100 Insulin 100 unit/mL Solution 14 unit subcut DAILY Qty: 3 RF: 0 sennosides [senna] 8.6 mg tablet 1 - 2 tab PO BEDTIME PRN (Reason: constipation) RF: 0 sodium citrate 4 % (3 mL) Syringe 6 ml INTRA-CATHETER MOWEFR RF: 0 Retacrit 10,000 unit/mL Solution 10,000 unit SUBCUT WE RF: 0 Discharge Orders: Discharge Order (Routine); Ordered 06/11/21 Ordered By: Franck James Diet: advance to usual diet Activity on Discharge: As tolerated Stand Alone Forms: Patient Portal Discharge page Care Plan Goals: recovery Health Concerns: hypertensive urgency Plan of Treatment: HD Assessment: see above
[2021-06-11 13:05] LABS: Glucose, Whole Blood 109 mg/dL (60-115)
--- NOTE | 2021-06-11 13:19 | PC.NURSE ---
pt discharged to home after dialysis,
--- NOTE | 2021-06-11 13:42 | MHC.CM.PN ---
PT BEING DISCHARGED HOME TODAY, AMARJIT SPOKE TO HER ACCOUNTING ASSOCIATE'S DIANE. THEY REPORTED THEY THOUGHT THE PT HAD A VNA BUT WERE UNSURE WHO IT WAS. AMARJIT CALLED [facility] AND SPOKE TO DEE, THE [employer] NURSE SIGN WRITER HAND. SHE REPORTED THE PT HAD BEEN ACTIVE WITH [facility] HOWEVER THE AUTH HAD ON THAT AND SHE WAS NOT ONLY ACTIVE WITH [facility] AND [facility]. PT WILL DC HOME TODAY WITH RESUMPTION OF SERVICES PTS ACCOUNTING ASSOCIATE WILL TRANSPORT
== END 2021-06-11 13:22 | disposition home health service (06) | DRG 640 ==
LOC: HO.ED 07:50 → HO.EDOVER 08:34
PROVIDERS: Admitting Provider Hospitalist; Emergency Provider Student in an Organized Health Care Education/Training Program; PCP Internal Medicine; Visit Provider Internal Medicine
DX: E87.79 Other fluid overload (principal); N18.6 End stage renal disease; I13.2 Hypertensive heart and chronic kidney disease with heart failure and with stage 5 chronic kidney disease, or end stage renal disease; F11.20 Opioid dependence, uncomplicated; I50.32 Chronic diastolic (congestive) heart failure; I16.0 Hypertensive urgency; E11.22 Type 2 diabetes mellitus with diabetic chronic kidney disease; Z91.15 Patient's noncompliance with renal dialysis; Z99.2 Dependence on renal dialysis; Z79.4 Long term (current) use of insulin; Z79.899 Other long term (current) drug therapy
CPT/HCPCS: 36415; 71045; 80048; 80076; 82947; 83690; 85025; 87635; 90999; 93005; 94640; 99285; J0610; J2405; Q0163

== ENCOUNTER 2021-06-18 14:01 | Observation (INO) | payer OTHER, SELFPAY ==
--- NOTE | ~2021-06-18 | XR_ITS ---
EXAMINATION: XR CHEST CLINICAL INFORMATION: Shortness of breath. Missed dialysis. Rule out CHF. COMPARISON: Chest x-ray 05/21/2021 TECHNIQUE: 2 views of the chest were obtained. FINDINGS: Stable cardiac silhouette. Unchanged orientation of tunneled dialysis catheter. Lungs are adequately aerated. There is no lobar consolidation. No pleural effusion or pneumothorax. No gross volume overload. Moderate degenerative changes of the spine. XR/XR chest 2V IMPRESSION: No acute pulmonary pathology.
--- NOTE | ~2021-06-18 | XR_ITS ---
EXAMINATION: XR CHEST CLINICAL INFORMATION: Shortness of breath COMPARISON: 06/18/2021 TECHNIQUE: Frontal view of the chest was obtained. FINDINGS: Dual lumen dialysis catheter terminates over the right atrium. Cardiac leads overlie the chest. The lungs are well expanded. There is no focal consolidation, edema, or effusion. No pneumothorax. The cardiomediastinal silhouette is within normal limits of size with a calcified aorta. No acute osseous abnormality. XR/XR chest 1V IMPRESSION: No acute pulmonary finding.
--- NOTE | 2021-06-18 14:07 | ED.GENADULT ---
HPI - General Adult General Chief complaint: General Medical Stated complaint: hypertension Time Seen by Provider: 06/18/21 14:07 Related Data Home Medications Medication Instructions Recorded Confirmed aspirin 81 mg tablet,delayed 81 mg PO DAILY 10/22/20 06/18/21 release buprenorphine 8 mg-naloxone 2 mg 1 strip SUBLINGUAL BID 10/22/20 06/18/21 sublingual film (Suboxone) clonidine HCl 0.1 mg tablet 0.1 mg PO TID 10/22/20 06/18/21 diltiazem HCl 180 mg 180 mg PO DAILY 10/22/20 06/18/21 capsule,extended release 24 hr insulin lispro 100 unit/mL See Protocol SUBCUT TIDAC 10/22/20 06/18/21 subcutaneous pen (Humalog KwikPen (U-100) Insulin) tiotropium bromide 18 mcg capsule 1 cap INHALATION DAILY 10/22/20 06/18/21 with inhalation device (Spiriva with HandiHaler) trazodone 100 mg tablet 1 - 2 tab PO BEDTIME 10/22/20 06/18/21 olanzapine 10 mg tablet 10 mg PO BEDTIME 02/25/21 06/18/21 bumetanide 2 mg tablet 2 mg PO DAILY 04/15/21 06/18/21 fluticasone propionate 110 1 puff INHALATION BID 04/15/21 06/18/21 mcg/actuation HFA aerosol inhaler (Flovent HFA) melatonin 5 mg tablet 5 mg PO BEDTIME PRN 04/15/21 06/18/21 pantoprazole 40 mg tablet,delayed 40 mg PO DAILY 04/15/21 06/18/21 release vitamin B comp no.3-folic acid 1 1 tab PO DAILY 04/15/21 06/18/21 mg-vit C 60 mg-biotin 300 mcg tablet (FIVE PIECE EXPANSION MAKER HAND-Sharifa Rx) epoetin kateryna-epbx 10,000 unit/mL 10,000 unit SUBCUT WE 05/11/21 06/18/21 injection solution (Retacrit) sennosides 8.6 mg tablet (senna) 1 - 2 tab PO BEDTIME PRN 05/11/21 06/18/21 sodium citrate 4 % (3 mL) 6 ml INTRA-CATHETER MOWEFR 05/11/21 06/18/21 intra-catheter injection syringe acetaminophen 500 mg tablet 500 mg PO Q8H PRN 06/10/21 06/18/21 mirtazapine 15 mg tablet 1 tab PO BEDTIME 06/10/21 06/18/21 sevelamer carbonate 800 mg tablet 1 tab PO TID 06/10/21 06/18/21 triamcinolone acetonide 0.025 % 1 appl TOPICAL BID 06/10/21 06/18/21 topical cream nicotine 21 mg/24 hr daily 1 patch TOPICAL DAILY 06/18/21 06/18/21 transdermal patch Previous Rx's Medication Instructions Recorded amlodipine 10 mg tablet 10 mg PO BEDTIME #30 tab 03/07/21 hydralazine 100 mg tablet 100 mg PO TID #90 tab 03/07/21 insulin glargine 100 unit/mL 14 unit (0.14 mL) SUBCUT DAILY #3 04/19/21 subcutaneous solution (Lantus ml U-100 Insulin) Allergies Allergy/AdvReac Type Severity Reaction Status Date / Time No Known Allergies Allergy Mild NOT Verified 12/14/20 11:50 APPLICABLE [facility] Past Medical History Medical History (Updated 06/19/21 @ 05:39 by Robert Torres MD) Acute kidney injury superimposed on chronic kidney disease VANDANA (acute kidney injury) Anemia in chronic kidney disease CHF (congestive heart failure) Constipation Diabetes mellitus Diastolic congestive heart failure End-stage renal disease (ESRD) Essential hypertension HTN (hypertension) HTN (hypertension) Hypertension Non-compliance Normocytic anemia Surgical History No pertinent past surgical history Family History Family History Other Hypertension Social History Social History Household Members: None Housing: House Do you presently have visiting nurse or other home services: Yes Alcohol intake: unknown Patient Tobacco Use Status: Current everyday Tobacco user Tobacco use type: Cigarette Cigarette Packs Per Day: 1 Second Hand Smoke Exposure: No Substance Use Type: Heroin Advance Directives Date on File: 04/20/21 service: No Current occupational status: disabled Physical Exam Vital Signs: Vital Signs: Last Vital Signs Temp 98.4 F 06/19/21 04:06 Pulse 83 06/19/21 12:22 Resp 18 06/19/21 12:22 BP 171/75 H 06/19/21 12:22 Pulse Ox 95 06/19/21 12:22 BMI result Body Mass Index 31.6 Medical Decision Making Lab Data Result diagrams: 06/19/21 Unknown 06/19/21 05:37 Labs: Lab Results 06/18/21 06/18/21 06/18/21 Range/Units 16:33 16:35 16:35 WBC 9.4 (4.8-10.8) X10*3/uL RBC 4.10 L (4.20-5.50) X10*6/uL Hgb 11.8 L (12.0-16.0) g/dl Hct 37.5 (37.0-47.0) % MCV 91.5 (80.0-98.0) fL MCH 28.8 (27.0-33.0) pg MCHC 31.5 (31.0-35.0) g/dl RDW 15.3 (11.0-16.0) % Plt Count 178 D (160-400) X10*3/uL MPV 9.4 (9.4-12.3) fL Immature Gran % (Auto) 0.3 (0.0-0.4) % Neut % (Auto) 79.7 H (45-73) % Lymph % (Auto) 13.4 L (20-40) % [place] % (Auto) 4.7 (2-11) % Eos % (Auto) 1.7 (0-4) % Baso % (Auto) 0.2 (0-2) % Lymph # (Auto) 1.3 (1.2-4.9) X10*3/uL [place] # (Auto) 0.4 (0.1-1.2) X10*3/uL Eos # (Auto) 0.2 (0.0-0.4) X10*3/uL Baso # (Auto) 0.0 (0.0-0.2) X10*3/uL Abs Immat Gran (auto) 0.03 (0.00-0.03) X10*3/uL Absolute Neuts (auto) 7.5 (2.0-8.3) x10*3/uL Absolute Nucleated RBC 0.000 (0.0-0.012) X10*3/uL Nucleated RBC % (auto) 0.0 (0.0-0.2) /100WBC Sodium 134 L (135-145) mmol/L Potassium 5.9 H (3.3-5.1) mmol/L Chloride 99 (96-108) mmol/L Carbon Dioxide 19 L (22-29) mmol/L Anion Gap 22 H (12-20) BUN 57 H D (9-16) mg/dL Creatinine 13.42 H* (0.5-1.4) mg/dL Estim Creat Clear Calc 3.8 Estimated GFR 3 Random Glucose 74 (60-115) mg/dL Calcium 9.1 (8.4-10.2) mg/dL Total Bilirubin 0.4 (0.0-1.0) mg/dL AST 28 (5-31) U/L ALT 19 (0-31) U/L Alkaline Phosphatase 129 H (39-117) U/L Total Protein 6.8 (6.5-8.0) g/dL Albumin 3.7 (3.5-5.0) g/dL COVID-19 (KRYSTINA) Negative (Negative) COVID-19 Clin Com See Note Discharge Plan Discharge Clinical Impression: Acute hyperkalemia, Dialysis patient, noncompliant Patient Disposition: Admitted As Inpatient Interventions: ED Discharge Assessment Last Done: 06/19/21 15:19 Discharge Date/Time: 06/19/21 15:21
[2021-06-18 14:23] VITALS: BP 190/92; PULSE 79; PULSE 96; RESP 20; TEMP 36.9; O2SAT 100; O2SAT 97; BMI 31.6
[2021-06-18 16:42] LABS: MANUAL DIFF FLAG NO
[2021-06-18 16:43] LABS: Basophils Percent Auto 0.2 % (0-2); Eosinophils Absolute Auto 0.2 X10*3/uL (0.0-0.4); Eosinophils Percent Auto 1.7 % (0-4); Hematocrit 37.5 % (37.0-47.0); Hemoglobin 11.8 g/dl (12.0-16.0); Imm Gran Abs Auto 0.03 X10*3/uL (0.00-0.03); Imm Gran Pct Auto 0.3 % (0.0-0.4); Lymphocytes Absolute Auto 1.3 X10*3/uL (1.2-4.9); Lymphocytes Percent Auto 13.4 % (20-40); Mean Corpuscular HGB Conc 31.5 g/dl (31.0-35.0); Mean Corpuscular Hemoglobin 28.8 pg (27.0-33.0); Mean Corpuscular Volume 91.5 fL (80.0-98.0); Mean Platelet Volume 9.4 fL (9.4-12.3); Monocytes Absolute Auto 0.4 X10*3/uL (0.1-1.2); Monocytes Percent Auto 4.7 % (2-11); Neutrophils Absolute Auto 7.5 x10*3/uL (2.0-8.3); Neutrophils Percent Auto 79.7 % (45-73); Platelet Count 178 X10*3/uL (160-400); Red Cell Distribution Width 15.3 % (11.0-16.0); White Blood Count 9.4 X10*3/uL (4.8-10.8)
[2021-06-18 16:58] LABS: COVID-19 Test Negative (Negative)
--- NOTE | 2021-06-18 17:04 | ED_ITS ---
HPI - General Adult General Chief complaint: General Medical Stated complaint: hypertension Time Seen by Provider: 06/18/21 14:07 Source: patient Mode of arrival: EMS Limitations: language barrier (Patient's 1st language is Faroese, she does speak Danish, [employer] spanish medical interpreter was used as well) History of Present Illness HPI narrative: 66-year-old female who presents emergency department for evaluation of high blood pressure and missing dialysis. The patient states that she is dialyzed on Sunday, and Sunday. She missed her dialysis on . She states that she went downstairs but her ride never came to take her to dialysis today. The patient states that her nurse took her blood pressure at home and it was high, an ambulance was called and she was brought to the emergency department for evaluation. The patient has no complaints. She denies headache, chest pain, shortness of breath, nausea, vomiting, weakness, lightheadedness or dizziness. Apparently the patient is well-known to the emergency department and has missed dialysis in the past. Related Data Home Medications Medication Instructions Recorded Confirmed aspirin 81 mg tablet,delayed 81 mg PO DAILY 10/22/20 06/10/21 release buprenorphine 8 mg-naloxone 2 1 strip SUBLINGUAL BID 10/22/20 06/10/21 mg sublingual film (Suboxone) clonidine HCl 0.1 mg tablet 0.1 mg PO TID 10/22/20 06/10/21 diltiazem HCl 180 mg 180 mg PO DAILY 10/22/20 06/10/21 capsule,extended release 24 hr insulin lispro 100 unit/mL See Protocol SUBCUT BIDAC 10/22/20 06/10/21 subcutaneous pen (Humalog KwikPen (U-100) Insulin) tiotropium bromide 18 mcg 1 cap INHALATION DAILY 10/22/20 06/10/21 capsule with inhalation device (Spiriva with HandiHaler) trazodone 100 mg tablet 1 - 2 tab PO BEDTIME 10/22/20 06/10/21 olanzapine 10 mg tablet 1 tab PO BEDTIME 02/25/21 06/10/21 bumetanide 2 mg tablet 2 mg PO DAILY 04/15/21 06/10/21 fluticasone propionate 110 1 puff INHALATION BID 04/15/21 06/10/21 mcg/actuation HFA aerosol inhaler (Flovent HFA) melatonin 5 mg tablet 5 mg PO BEDTIME PRN 04/15/21 06/10/21 pantoprazole 40 mg 40 mg PO DAILY 04/15/21 06/10/21 tablet,delayed release vitamin B comp no.3-folic 1 tab PO DAILY 04/15/21 06/10/21 acid 1 mg-vit C 60 mg-biotin 300 mcg tablet (TECHNICAL SALES REPRESENTATIVES-[facility] Rx) epoetin kateryna-epbx 10,000 10,000 unit SUBCUT WE 05/11/21 06/10/21 unit/mL injection solution (Retacrit) sennosides 8.6 mg tablet 1 - 2 tab PO BEDTIME PRN 05/11/21 06/10/21 (senna) sodium citrate 4 % (3 mL) 6 ml INTRA-CATHETER MOWEFR 05/11/21 06/10/21 intra-catheter injection syringe acetaminophen 500 mg tablet 500 mg PO Q8H PRN 06/10/21 06/10/21 mirtazapine 15 mg tablet 1 tab PO BEDTIME 06/10/21 06/10/21 nicotine 14 mg/24 hr daily 14 mg TOPICAL DAILY 06/10/21 06/10/21 transdermal patch sevelamer carbonate 800 mg 1 tab PO TID 06/10/21 06/10/21 tablet triamcinolone acetonide 0.025 1 appl TOPICAL BID 06/10/21 06/10/21 % topical cream Previous Rx's Medication Instructions Recorded amlodipine 10 mg tablet 10 mg PO BEDTIME #30 tab 03/07/21 hydralazine 100 mg tablet 100 mg PO TID #90 tab 03/07/21 insulin glargine 100 unit/mL 14 unit (0.14 mL) SUBCUT DAILY #3 04/19/21 subcutaneous solution (Lantus ml U-100 Insulin) Allergies Allergy/AdvReac Type Severity Reaction Status Date / Time No Known Allergies Allergy Mild NOT Verified 12/14/20 11:50 APPLICABLE Review of Systems Verdana 4l Review of Systems: Yes all other systems are reviewed and Verdana 4d are negative [facility] Past Medical History [facility] Narrative: Social history: The patient states she lives home alone. She does have a LICENSE REGISTRATION EXAMINER, Chelly who can be reached at [phone]. I did talk to the patient's LICENSE REGISTRATION EXAMINER and she told me that the patient did miss dialysis on and today. Medical History Acute kidney injury superimposed on chronic kidney disease VANDANA (acute kidney injury) Anemia in chronic kidney disease CHF (congestive heart failure) Constipation Diabetes mellitus Diastolic congestive heart failure End-stage renal disease (ESRD) Essential hypertension HTN (hypertension) HTN (hypertension) Hypertension Non-compliance Normocytic anemia Surgical History No pertinent past surgical history Family History Family History Other Hypertension Social History Social History Household Members: None Housing: House Do you presently have visiting nurse or other home services: Yes Alcohol intake: unknown Patient Tobacco Use Status: Current everyday Tobacco user Tobacco use type: Cigarette Cigarette Packs Per Day: 1 Smoked in Last 30 Days: Yes Second Hand Smoke Exposure: No Use of substances other than those prescribed or required for medical reasons: No Substance Use Type: Heroin Advance Directives: Yes Advance Directives on File: Yes Advance Directives Date on File: 04/20/21 service: No Current occupational status: disabled Physical Exam Verdana 4l Vital Signs: Verdana 4d Verdana 4d Vital Signs: Verdana 4d Verdana 4Bd Last Vital Signs Verdana 4d Bottler New 4d Bottler New 4d Temp 98.4 F 06/18/21 14:23 Bottler New 4d Pulse 118 H 06/18/21 19:13 Bottler New 4d Resp 16 06/18/21 19:13 BP 190/92 H 06/18/21 14:23 Pulse Ox 99 06/18/21 19:13 BMI result Body Mass Index 31.6 Const: General: cooperative and no acute distress Orientation/consciousness: orien kalen to person and oriented to place Limitations: no limitations HENMT: Head: Yes normal to inspection, Yes normocephalic and Yes atraumatic Ears: external ears normal General nose exam: Normal external nose present Face and sinus: Yes normal facial exam Mouth: Normal oral and palatal mucosa present Throat: Yes posterior oropharynx normal Eyes: General: appearance normal, both eyes and all related structures Pupils: Equal, round and reactive pupils present Neck: Neck: Yes normal visual inspection, Yes no lymphadenopathy, Yes trachea midline and Yes supple Chest: Chest palpation & inspection: normal inspection of the chest and normal palpation of entire chest wall Resp: Effort & Inspection: normal respiratory effort and able to speak in complete sentences Auscultation: clear to auscultation bilaterally Cardio: Rate: regular rate Rhythm: regular rhythm Heart sounds: S1 normal heart sound present, S2 normal heart sound present and no murmurs GI: Inspection: Yes normal to inspection Palpation (GI): Soft to palpation, nontender and no guarding Auscultation: normal bowel sounds : General: Yes no CVA tenderness Back/Spine/Pelvis: Back: no CVA tenderness Skin: General skin exam: no rashes or lesions noted Neuro: General: oriented to person and oriented to place Cranial nerves: Yes CN's II-XII intact bilaterally and Yes Equal, round and reactive pupils present Cognition (Neuro): normal cognition Motor exam (neuro): 5/5 motor strength present throughout Extrem: General: Yes normal to inspection Psych: Appearance: grossly normal Speech and movement: Normal speech and movement present Affect: normal affect Attitude: cooperative Thought process: Normal thought process present Thought content: Normal thought content present Course Course Course Narrative: 66-year-old female with history of end-stage renal disease dialyzed on Sunday, and Sunday who missed dialysis on and today who presents emergency department for evaluation of high blood pressure. Patient cannot tell me what her blood pressure was at home. The patient's blood pressure here in the emergency department is 190/92. Patient has no complaints. Her examination was unremarkable. I will discuss the patient's presentation with our covering waxer operator to determine if the patient needs dialysis today. Patient's laboratory evaluation is pending. 1843: Laboratory evaluation revealed a normal CBC. CMP revealed a low sodium and and CO2 of 19. Patient's potassium was elevated at 5.9. BUN and creatinine are elevated at 57 and 13.42. Alk-phos was elevated 129. COVID-19 was negative. I ordered Kayexalate 45 g orally. did discuss the patient's presentation with the covering waxer operator, Dr. Bret Us. She recommended the patient be admitted for dialysis. I will discuss admission with the covering hospitalist. 193: I discuss the patient's presentation with the covering hospitalist, Dr. Torres and the patient will be admitted for further management. Medical Decision Making Lab Data Result diagrams: 06/18/21 16:35 06/18/21 16:35 Labs: Lab Results 06/18/21 06/18/21 06/18/21 Range/Units 16:33 16:35 16:35 WBC 9.4 (4.8-10.8) X10*3/uL RBC 4.10 L (4.20-5.50) X10*6/uL Hgb 11.8 L (12.0-16.0) g/dl Hct 37.5 (37.0-47.0) % MCV 91.5 (80.0-98.0) fL MCH 28.8 (27.0-33.0) pg MCHC 31.5 (31.0-35.0) g/dl RDW 15.3 (11.0-16.0) % Plt Count 178 D (160-400) X10*3/uL MPV 9.4 (9.4-12.3) fL Immature Gran % (Auto) 0.3 (0.0-0.4) % Neut % (Auto) 79.7 H (45-73) % Lymph % (Auto) 13.4 L (20-40) % [place] % (Auto) 4.7 (2-11) % Eos % (Auto) 1.7 (0-4) % Baso % (Auto) 0.2 (0-2) % Lymph # (Auto) 1.3 (1.2-4.9) X10*3/uL [place] # (Auto) 0.4 (0.1-1.2) X10*3/uL Eos # (Auto) 0.2 (0.0-0.4) X10*3/uL Baso # (Auto) 0.0 (0.0-0.2) X10*3/uL Abs Immat Gran (auto) 0.03 (0.00-0.03) X10*3/uL Absolute Neuts (auto) 7.5 (2.0-8.3) x10*3/uL Absolute Nucleated RBC 0.000 (0.0-0.012) X10*3/uL Nucleated RBC % (auto) 0.0 (0.0-0.2) /100WBC Sodium 134 L (135-145) mmol/L Potassium 5.9 H (3.3-5.1) mmol/L Chloride 99 (96-108) mmol/L Carbon Dioxide 19 L (22-29) mmol/L Anion Gap 22 H (12-20) BUN 57 H D (9-16) mg/dL Creatinine 13.42 H* (0.5-1.4) mg/dL Estim Creat Clear Calc 3.8 Estimated GFR 3 Random Glucose 74 (60-115) mg/dL Calcium 9.1 (8.4-10.2) mg/dL Total Bilirubin 0.4 (0.0-1.0) mg/dL AST 28 (5-31) U/L ALT 19 (0-31) U/L Alkaline Phosphatase 129 H (39-117) U/L Total Protein 6.8 (6.5-8.0) g/dL Albumin 3.7 (3.5-5.0) g/dL COVID-19 (KRYSTINA) Negative (Negative) COVID-19 Clin Com See Note Discharge Plan Discharge Patient Disposition: Admitted As Inpatient Prescriptions: No Action trazodone 100 mg tablet 1 - 2 tab PO BEDTIME 0RF buprenorphine-naloxone [Suboxone] 8-2 mg film 1 strip sublingual BID 0RF clonidine HCl 0.1 mg tablet 0.1 mg PO TID 0RF diltiazem HCl 180 mg capsule,extended release 24hr 180 mg PO DAILY 0RF aspirin 81 mg tablet,delayed release (DR/EC) 81 mg PO DAILY 0RF insulin lispro [Humalog KwikPen Insulin] 100 unit/mL insulin pen See Protocol unit subcut BIDAC 0RF Protocol: Insulin Correction Scale Less than or equal to 110 ---- Give (units): 0 111 to 150 Give (units): 0 151 to 200 Give (units): 2 201 to 250 Give (units): 4 251 to 300 Give (units): 6 301 to 350 Give (units): 8 Greater than 350 Give (units): 10 Call MD if Blood Glucose > : 350 Spiriva with HandiHaler 18 mcg capsule, w/inhalation device 1 cap inhalation DAILY 0RF nicotine 14 mg/24 hr patch 24 hour 14 mg topical DAILY 0RF acetaminophen 500 mg Tablet 500 mg PO Q8H PRN (Reason: Pain, Mild) 0RF triamcinolone acetonide 0.025 % cream 1 appl topical BID 0RF mirtazapine 15 mg tablet 1 tab PO BEDTIME 0RF sevelamer carbonate 800 mg tablet 1 tab PO TID 0RF olanzapine 10 mg tablet 1 tab PO BEDTIME 0RF amlodipine 10 mg Tablet 10 mg PO BEDTIME Qty: 30 0RF Protocol: Hold for SBP< HOLD for SBP < : 90 Rx Instructions: replaces prior dose of 5 mg daily hydralazine 100 mg tablet 100 mg PO TID Qty: 90 0RF Rx Instructions: replaces prior dose of 25 mg tid bumetanide 2 mg Tablet 2 mg PO DAILY 0RF pantoprazole 40 mg Tablet,Delayed Release (Dr/Ec) 40 mg PO DAILY 0RF melatonin 5 mg Tablet 5 mg PO BEDTIME PRN (Reason: Sleep) 0RF TECHNICAL SALES REPRESENTATIVES-[facility]ifa Rx 1-60-300 mg-mg-mcg Tablet 1 tab PO DAILY 0RF Flovent HFA 110 mcg/actuation Hfa Aerosol Inhaler 1 puff INHALATION BID 0RF Lantus U-100 Insulin 100 unit/mL Solution 14 unit subcut DAILY Qty: 3 0RF Rx Instructions: replaces prior dose of 24 units daily sennosides [senna] 8.6 mg tablet 1 - 2 tab PO BEDTIME PRN (Reason: constipation) 0RF sodium citrate 4 % (3 mL) Syringe 6 ml INTRA-CATHETER MOWEFR 0RF Retacrit 10,000 unit/mL Solution 10,000 unit SUBCUT WE 0RF
[2021-06-18 17:08] LABS: Alanine Aminotransferase 19 U/L (0-31); Albumin Level 3.7 g/dL (3.5-5.0); Alkaline Phosphatase 129 U/L (39-117); Anion Gap 22 (12-20); Aspartate Amino Transferase 28 U/L (5-31); Bilirubin Total 0.4 mg/dL (0.0-1.0); Calcium 9.1 mg/dL (8.4-10.2); Carbon Dioxide 19 mmol/L (22-29); Chloride 99 mmol/L (96-108); Glucose Random 74 mg/dL (60-115); Potassium 5.9 mmol/L (3.3-5.1); Sodium 134 mmol/L (135-145); Total Protein 6.8 g/dL (6.5-8.0)
[2021-06-18 17:13] LABS: Blood Urea Nitrogen 57 mg/dL (9-16); Creatinine Clr Calc Pharmacy 3.8; Estimated Glomerular Filt Rate 3
[2021-06-18] MEDS: Sodium Polystyrene Sulfon/Sorb 15 GM/60 ML ORAL.SUSP 45 GM PO (18:54)
[2021-06-18 19:13] VITALS: PULSE 118; RESP 16; O2SAT 99
[2021-06-18] MEDS: ondansetron HCL 4 MG/2 ML VIAL IVPUSH (20:12)
--- NOTE | 2021-06-18 20:14 | P.HPHOSP_ITS ---
History of Present Illness Date of Service: 06/18/21 Chief Complaint: missed dialysis Indian-speaking only 66-year-old female with past medical history of ESRD on dialysis Sunday and Sunday, CHF, diabetes, hypertension, noncompliance present with complaints of hypertension. Patient reports that she missed 2 session of her dialysis last week, her nurse came to visit her at home on day presentation ( sat) and found her to be hypertensive. Pt then decided to go to dialysis but according to her the van never picked her up so she decided to come to the ED instead. She denies any headache, no change in vision, no chest pain, no palpitations. No lower extremity edema. has nausea, no abdominal pain, no diarrhea or constipation. she still produces urine and denies any urnary symptoms On arrival to the ED patient found to have vital significant for blood pressure of 190/92, heart rate of 79, temp of 98.4? Labs significant for potassium of 5.9, creatinine of 13.42, alk-phos of 129 Chest x-ray shows no acute pulmonary pathology nephrology was consulted by ed- wants pt to be admitted for dialysis Review of Systems Verdana 4l Review of Systems: Yes all other systems are reviewed and Verdana 4d are negative [facility] Medical History (Updated 06/19/21 @ 05:39 by Robert Torres MD) Acute kidney injury superimposed on chronic kidney disease VANDANA (acute kidney injury) Anemia in chronic kidney disease CHF (congestive heart failure) Constipation Diabetes mellitus Diastolic congestive heart failure End-stage renal disease (ESRD) Essential hypertension HTN (hypertension) HTN (hypertension) Hypertension Non-compliance Normocytic anemia Family History Other Hypertension Surgical History No pertinent past surgical history Social History Household Members: None Housing: House Do you presently have visiting nurse or other home services: Yes Alcohol intake: unknown Patient Tobacco Use Status: Current everyday Tobacco user Tobacco use type: Cigarette Cigarette Packs Per Day: 1 Smoked in Last 30 Days: Yes Second Hand Smoke Exposure: No Use of substances other than those prescribed or required for medical reasons: No Substance Use Type: Heroin Advance Directives: Yes Advance Directives on File: Yes Advance Directives Date on File: 04/20/21 service: No Current occupational status: disabled Meds Allergies Allergy/AdvReac Type Severity Reaction Status Date / Time No Known Allergies Allergy Mild NOT Verified 12/14/20 11:50 APPLICABLE Home Medications Medication Instructions Recorded Confirmed Last Taken Type aspirin 81 mg 81 mg PO DAILY 10/22/20 06/18/21 Unknown History tablet,delayed release buprenorphine 8 1 strip 10/22/20 06/18/21 Unknown History mg-naloxone 2 mg SUBLINGUAL BID sublingual film (Suboxone) clonidine HCl 0.1 0.1 mg PO TID 10/22/20 06/18/21 Unknown History mg tablet diltiazem HCl 180 180 mg PO DAILY 10/22/20 06/18/21 Unknown History mg capsule,extended release 24 hr insulin lispro See Protocol 10/22/20 06/18/21 Unknown History 100 unit/mL SUBCUT TIDAC subcutaneous pen (Humalog KwikPen (U-100) Insulin) tiotropium 1 cap INHALATION 10/22/20 06/18/21 Unknown History bromide 18 mcg DAILY capsule with inhalation device (Spiriva with HandiHaler) trazodone 100 mg 1 - 2 tab PO 10/22/20 06/18/21 Unknown History tablet BEDTIME olanzapine 10 mg 10 mg PO BEDTIME 02/25/21 06/18/21 Unknown History tablet bumetanide 2 mg 2 mg PO DAILY 04/15/21 06/18/21 Unknown History tablet fluticasone 1 puff 04/15/21 06/18/21 Unknown History propionate 110 INHALATION BID mcg/actuation HFA aerosol inhaler (Flovent HFA) melatonin 5 mg 5 mg PO BEDTIME 04/15/21 06/18/21 Unknown History tablet PRN pantoprazole 40 40 mg PO DAILY 04/15/21 06/18/21 Unknown History mg tablet,delayed release vitamin B comp 1 tab PO DAILY 04/15/21 06/18/21 Unknown History no.3-folic acid 1 mg-vit C 60 mg-biotin 300 mcg tablet ([employer]-[facility]) epoetin kateryna-epbx 10,000 unit 05/11/21 06/18/21 Unknown History 10,000 unit/mL SUBCUT WE injection solution (Retacrit) sennosides 8.6 mg 1 - 2 tab PO 05/11/21 06/18/21 Unknown History tablet (senna) BEDTIME PRN sodium citrate 4 6 ml 05/11/21 06/18/21 Unknown History % (3 mL) INTRA-CATHETER MOWEFR intra-catheter injection syringe acetaminophen 500 500 mg PO Q8H 06/10/21 06/18/21 Unknown History mg tablet PRN mirtazapine 15 mg 1 tab PO BEDTIME 06/10/21 06/18/21 Unknown History tablet sevelamer 1 tab PO TID 06/10/21 06/18/21 Unknown History carbonate 800 mg tablet triamcinolone 1 appl TOPICAL 06/10/21 06/18/21 Unknown History acetonide 0.025 % BID topical cream nicotine 21 mg/ 1 patch TOPICAL 06/18/21 06/18/21 Unknown History hr daily DAILY transdermal patch Physical Exam Verdana 4l Vital Signs and Narrative: Verdana 4d Verdana 4d Vital Signs: Verdana 4d Verdana 4Bd Last Vital Signs Verdana 4d Car Tracer New 4d Car Tracer New 4d Temp 98.4 F 06/18/21 14:23 Car Tracer New 4d Pulse 118 H 06/18/21 19:13 Car Tracer New 4d Resp 16 06/18/21 19:13 BP 190/92 H 06/18/21 14:23 Pulse Ox 99 06/18/21 19:13 BMI result Body Mass Index 31.6 Const: General: cooperative and no acute distress Orientation/consciousness: patient oriented x3 Eyes: General: appearance normal, both eyes and all related structures Pupils: Equal, round and reactive pupils present Resp: Effort & Inspection: normal respiratory effort Auscultation: clear to auscultation bilaterally Cardio: Rate: regular rate Rhythm: regular rhythm GI: Palpation (GI): Soft to palpation Auscultation: normal bowel sounds Skin: General skin exam: no rashes or lesions noted Neuro: General: patient oriented x3 Cranial nerves: Yes Equal, round and reactive pupils present Cognition (Neuro): normal cognition Extrem: Other: trace pedal edema General: Yes normal to inspection Results Labs CBC and Chem 7: 06/18/21 16:35 06/18/21 21:48 Labs: Laboratory Results - last 24 hr 06/18/21 06/18/21 06/18/21 16:33 16:35 16:35 MCV 91.5 MCH 28.8 MCHC 31.5 RDW 15.3 Plt Count 178 D MPV 9.4 Immature Gran % (Auto) 0.3 Neut % (Auto) 79.7 H Lymph % (Auto) 13.4 L [place] % (Auto) 4.7 Eos % (Auto) 1.7 Baso % (Auto) 0.2 Lymph # (Auto) 1.3 [place] # (Auto) 0.4 Eos # (Auto) 0.2 Baso # (Auto) 0.0 Abs Immat Gran (auto) 0.03 Absolute Neuts (auto) 7.5 Absolute Nucleated RBC 0.000 Nucleated RBC % (auto) 0.0 Anion Gap 22 H Estim Creat Clear Calc 3.8 Estimated GFR 3 Random Glucose 74 Calcium 9.1 Total Bilirubin 0.4 AST 28 ALT 19 Alkaline Phosphatase 129 H Total Protein 6.8 Albumin 3.7 COVID-19 ([facility]YSTINA) Negative COVID-19 Clin Com See Note Imaging Radiologist's Impressions: Impressions Chest X-Ray 06/18/21 16:18 IMPRESSION: No acute pulmonary pathology. Assessment and Plan (1) Dialysis patient, noncompliant: Status: Acute (2) Acute hyperkalemia: Status: Acute (3) Hypertensive crisis: Status: Acute Plan 66-year-old female with history of ESRD on dialysis who is a frequent Flyer to the hospital given her noncompliance with her dialysis session presents to the hospital again after missing several dialysis sessions and being found hypertensive and hyperkalemic Her visiting nurse of note patient was discharged from the hospital on 11 of June for the same reasons # hyperkalemia - secondary to missed dialysis - patient received Kayexalate - has no EKG changes - dialysis scheduled for morning - nephrology consulted # missed dialysis - frequent admissions to the hospital for missed dialysis - has hyperkalemia as a result - advised hospitals all the setting to receive dialysis but patient reports that she has difficulty keeping up with her appointments sometimes # hypertensive crisis - possibly secondary to noncompliance - will resume her home medications # diabetes - resume home insulin - diabetic diet # COPD - continue home inhalers - DuoNeb p.r.n. # CHF - x-ray negative for volume overload - will obtain BNP - continue home Bumex DVT prophylaxis: Heparin subQ Quality Stroke Does the patient have a stroke diagnosis?: No VTE Prior VTE?: No VTE Risk Level:: Medical - moderate - high VTE Device Contraindication: Treatment Not Indicated VTE Drug Contraindication: N/A - Med Ordered
--- NOTE | 2021-06-18 20:53 | PHA.MEDREC ---
Pharmacy Consult ? Medication Reconciliation Pharmacy has completed the medication reconciliation.
[2021-06-18 21:27] LABS: Glucose, Whole Blood 87 mg/dL (60-115)
[2021-06-18 22:45] LABS: Anion Gap 28 (12-20); Blood Urea Nitrogen 57 mg/dL (9-16); Calcium 9.6 mg/dL (8.4-10.2); Carbon Dioxide 18 mmol/L (22-29); Chloride 99 mmol/L (96-108); Creatinine Clr Calc Pharmacy 3.8; Estimated Glomerular Filt Rate 3; Glucose Random 96 mg/dL (60-115); Potassium 5.7 mmol/L (3.3-5.1); Sodium 139 mmol/L (135-145)
[2021-06-19] VITALS: RESP 16
[2021-06-19 01:54] VITALS: BP 240/104; PULSE 95; RESP 16; TEMP 37.2; O2SAT 97
--- NOTE | 2021-06-19 01:56 | PC.NURSE ---
BP 240/104 pt c/o not feeling well states nauseous and dizzy Hospitalist notified
[2021-06-19] MEDS: amLODIPine Besylate 10 MG TABLET PO (02:10)
[2021-06-19] MEDS: Labetalol HCL 100 MG/20 ML VIAL 10 MG IVPUSH (02:11)
[2021-06-19 04:06] VITALS: BP 203/95; PULSE 82; RESP 20; TEMP 36.9; O2SAT 98
--- NOTE | 2021-06-19 04:14 | PC.NURSE ---
BP 203/95 Hospitalist notified
[2021-06-19] MEDS: hydrALAZINE HCl 50 MG TABLET 100 MG PO ×2 (04:17→12:26)
[2021-06-19] MEDS: cloNIDine HCL 0.1 MG TABLET PO ×2 (04:17→12:26)
[2021-06-19] MEDS: ondansetron HCL 4 MG/2 ML VIAL IVPUSH (04:26)
[2021-06-19 05:00] VITALS: PULSE 71; RESP 16; O2SAT 97
--- NOTE | 2021-06-19 05:06 | PC.NURSE ---
pt called nurse into room and stated she felt as if she couldn't breath. 02 sat 97% on room air, respirations even and unlabored, lung sounds clear bilaterally. hospitalist on ED floor, called to bedside to assess pt. hospitalist to put in order for puja elliott respiratory paged for puja elliott
--- NOTE | 2021-06-19 05:08 | PC.NURSE ---
per hospitalist, pt placed on 2L NC for comfort
[2021-06-19 05:38] VITALS: BP 161/77; PULSE 69; RESP 16; O2SAT 98
[2021-06-19 05:51] LABS: Basophils Percent Auto 0.3 % (0-2); Eosinophils Absolute Auto 0.2 X10*3/uL (0.0-0.4); Eosinophils Percent Auto 2.1 % (0-4); Hematocrit 34.2 % (37.0-47.0); Hemoglobin 10.9 g/dl (12.0-16.0); Imm Gran Abs Auto 0.04 X10*3/uL (0.00-0.03); Imm Gran Pct Auto 0.5 % (0.0-0.4); Lymphocytes Percent Auto 12.9 % (20-40); MANUAL DIFF FLAG NO; Mean Corpuscular HGB Conc 31.9 g/dl (31.0-35.0); Mean Corpuscular Hemoglobin 29.2 pg (27.0-33.0); Mean Corpuscular Volume 91.7 fL (80.0-98.0); Mean Platelet Volume 9.3 fL (9.4-12.3); Monocytes Absolute Auto 0.4 X10*3/uL (0.1-1.2); Monocytes Percent Auto 5.1 % (2-11); Neutrophils Percent Auto 79.1 % (45-73); Platelet Count 153 X10*3/uL (160-400); Red Blood Count 3.73 X10*6/uL (4.20-5.50); Red Cell Distribution Width 15.3 % (11.0-16.0); White Blood Count 7.5 X10*3/uL (4.8-10.8)
[2021-06-19 06:01] LABS: Anion Gap 21 (12-20); Blood Urea Nitrogen 61 mg/dL (9-16); Calcium 8.5 mg/dL (8.4-10.2); Carbon Dioxide 22 mmol/L (22-29); Chloride 98 mmol/L (96-108); Creatinine Clr Calc Pharmacy 3.7; Estimated Glomerular Filt Rate 3; Glucose Random 100 mg/dL (60-115); Potassium 4.9 mmol/L (3.3-5.1); Sodium 136 mmol/L (135-145)
[2021-06-19 06:18] LABS: B Type Natriuretic Peptide 1224 pg/mL (<100)
[2021-06-19] MEDS: Bumetanide 1 MG TABLET PO (06:36)
[2021-06-19] MEDS: Omeprazole 20 MG CAPSULE.DR PO (06:37)
--- NOTE | 2021-06-19 06:38 | PM.EVENT ---
Event Note Date of Service: 06/19/21 Event Note: pt complaining of SOB. Auscultation reveal wheezing and some crackles BNP obtained shows elevated levels - will give one dose of Bumex , duoneb tx, pending dialysis this am
[2021-06-19 07:27] LABS: Glucose, Whole Blood 92 mg/dL (60-115)
--- NOTE | 2021-06-19 07:53 | PC.NURSE ---
pt going to dialysis on the 4 th floor
--- NOTE | 2021-06-19 08:42 | P.CONNP_ITS ---
History of Present Illness Reason for Consult Consult date: 06/19/21 Chief Complaint Chief complaint: Missed Dialysis, Hypertensive Crisis, Hyperkalemia Review of Systems Review of Systems Yes all other systems are reviewed and are negative [facility] Past Medical History Medical History (Updated 06/19/21 @ 05:39 by Robert Torres MD) Acute kidney injury superimposed on chronic kidney disease VANDANA (acute kidney injury) Anemia in chronic kidney disease CHF (congestive heart failure) Constipation Diabetes mellitus Diastolic congestive heart failure End-stage renal disease (ESRD) Essential hypertension HTN (hypertension) HTN (hypertension) Hypertension Non-compliance Normocytic anemia Family History Family History Other Hypertension Surgical History Surgical History No pertinent past surgical history Social History Social History Household Members: None Housing: House Do you presently have visiting nurse or other home services: Yes Alcohol intake: unknown Patient Tobacco Use Status: Current everyday Tobacco user Tobacco use type: Cigarette Cigarette Packs Per Day: 1 Smoked in Last 30 Days: Yes Second Hand Smoke Exposure: No Use of substances other than those prescribed or required for medical reasons: No Substance Use Type: Heroin Advance Directives: Yes Advance Directives on File: Yes Advance Directives Date on File: 04/20/21 service: No Current occupational status: disabled Meds Allergies Allergy/AdvReac Type Severity Reaction Status Date / Time No Known Allergies Allergy Mild NOT Verified 12/14/20 11:50 APPLICABLE Active Medications: Current Medications Acetaminophen (Acetaminophen 325 Mg Tablet) 650 mg PO Q6H PRN PRN Reason: Pain, Mild (Pain Scale 1-3) Albuterol/Ipratropium (Albuterol/Iprat 2.5/0.5mg 3 Ml Ampul.Neb) 3 ml INHALE RQ4H PRN PRN Reason: Shortness of Breath/Wheezing Amlodipine Besylate (Amlodipine Besylate 10 Mg Tablet) 10 mg PO BEDTIME PHAN; Protocol Last Admin: 06/19/21 02:10 Dose: 10 mg Documented by: Aspirin (Aspirin Enteric Coated 81 Mg Tablet.) 81 mg PO DAILY PHAN Bumetanide (Bumetanide 1 Mg Tablet) 2 mg PO DAILY PHAN; Protocol Buprenorphine/Naloxone (Buprenorphine/Naloxone 8/2 Mg Film) 1 film SUBLINGUAL BID [facility] Clonidine HCl (Clonidine Hcl 0.1 Mg Tablet) 0.1 mg PO TID [facility]; Protocol Last Admin: 06/19/21 04:17 Dose: 0.1 mg Documented by: Dextrose (Dextrose 50 % 25 Gm/50 Ml Syringe) 25 gm IVPUSH Q15M PRN; Protocol PRN Reason: per Hypoglycemia Standing Ord. Diltiazem HCl (Diltiazem Hcl Cd 180 Mg Cap.Er.24h) 180 mg PO DAILY [facility]; Protocol Docusate Sodium (Docusate Sodium 100 Mg Capsule) 100 mg PO DAILY PRN PRN Reason: Constipation Epoetin Kateryna (Epoetin Kateryna 10,000 Unit/Ml Vial) 10,000 unit SUBCUT WE [facility] Fluticasone Propionate (Fluticasone Propionate 100 Mcg Blst.W.Dev) 1 puff INHA LE RBID [facility] Last Admin: 06/19/21 08:25 Dose: Not Given Documented by: Glucose (Glucose Gel 15 Gm Gel..Gram.) 15 gm PO Q15M PRN; Protocol PRN Reason: per Hypoglycemia Standing Ord. Heparin Sodium (Porcine) (Heparin Sodium,Porcine 5,000 Unit/Ml Vial) 5,000 unit SUBCUT Q12H [facility] Last Admin: 06/18/21 22:06 Dose: Not Given Documented by: Hydralazine HCl (Hydralazine Hcl 50 Mg Tablet) 100 mg PO TID [facility]; Protocol Last Admin: 06/19/21 04:17 Dose: 100 mg Documented by: Insulin Glargine (Insulin Glargine,Hum.Rec.Anlog 100 Unit/Ml 10 Ml Vial) 14 unit SUBCUT DAILY [facility] Insulin Human Lispro (Insulin Lispro 100 Unit/Ml 3 Ml Vial) 0 unit SUBCUT QIDACHS [facility]; Protocol Last Admin: 06/19/21 07:31 Dose: Not Given Documented by: Melatonin (Melatonin 3 Mg Tablet) 6 mg PO BEDTIME PRN PRN Reason: Sleep Mirtazapine (Mirtazapine 15 Mg Tablet) 15 mg PO BEDTIME [facility] Multivitamins/Vitamin C (Multivitamin Tablet) 1 tab PO DAILY [facility] Nicotine (Nicotine 21 Mg Patch.Td24) 21 mg TRANSDERMA DAILY [facility] Olanzapine (Olanzapine 10 Mg Tablet) 10 mg PO BEDTIME PHAN Omeprazole (Omeprazole 20 Mg Capsule.) 20 mg PO DAILY@0630 [facility] Last Admin: 06/19/21 06:37 Dose: 20 mg Documented by: Ondansetron HCl (Ondansetron Hcl 4 Mg/2 Ml Vial) 4 mg IVPUSH Q8H PRN PRN Reason: Nausea and Vomiting Last Admin: 06/19/21 04:26 Dose: 4 mg Documented by: Pharmacy Consult (Consult Rx Perform Med Rec) 1 each MISCELLANE ONCE PRN PRN Reason: Consult order Sevelamer Carbonate (Sevelamer Carbonate Tablet 800 Mg Tablet) 800 mg PO TID [facility] Sodium Chloride (0.9 % Sodium Chloride Flush 3 Ml Syringe) 3 ml IVFLUSH QSHIFT [facility] Last Admin: 06/19/21 00:25 Dose: Not Given Documented by: Tiotropium Golden (Tiotropium Golden 18 Mcg Cap.W.Dev) 1 puff INHALE DAILY [facility] Last Admin: 06/19/21 08:25 Dose: Not Given Documented by: Trazodone HCl (Trazodone Hcl 100 Mg Tablet) 200 mg PO BEDTIME [facility] Last Admin: 06/19/21 04:18 Dose: Not Given Documented by: Triamcinolone Acetonide (Triamcinolone Acet 0.025 % Cream 15 Gm Tube) 1 appl TOPICAL BID [facility]; Protocol Home Medications Medication Instructions Recorded Confirmed Last Taken Type aspirin 81 mg 81 mg PO DAILY 10/22/20 06/18/21 Unknown History tablet,delayed release buprenorphine 8 1 strip 10/22/20 06/18/21 Unknown History mg-naloxone 2 mg SUBLINGUAL BID sublingual film (Suboxone) clonidine HCl 0.1 0.1 mg PO TID 10/22/20 06/18/21 Unknown History mg tablet diltiazem HCl 180 180 mg PO DAILY 10/22/20 06/18/21 Unknown History mg capsule,extended release 24 hr insulin lispro See Protocol 10/22/20 06/18/21 Unknown History 100 unit/mL SUBCUT TIDAC subcutaneous pen (Humalog KwikPen (U-100) Insulin) tiotropium 1 cap INHALATION 10/22/20 06/18/21 Unknown History bromide 18 mcg DAILY capsule with inhalation device (Spiriva with HandiHaler) trazodone 100 mg 1 - 2 tab PO 10/22/20 06/18/21 Unknown History tablet BEDTIME olanzapine 10 mg 10 mg PO BEDTIME 02/25/21 06/18/21 Unknown History tablet bumetanide 2 mg 2 mg PO DAILY 04/15/21 06/18/21 Unknown History tablet fluticasone 1 puff 04/15/21 06/18/21 Unknown History propionate 110 INHALATION BID mcg/actuation HFA aerosol inhaler (Flovent HFA) melatonin 5 mg 5 mg PO BEDTIME 04/15/21 06/18/21 Unknown History tablet PRN pantoprazole 40 40 mg PO DAILY 04/15/21 06/18/21 Unknown History mg tablet,delayed release vitamin B comp 1 tab PO DAILY 04/15/21 06/18/21 Unknown History no.3-folic acid 1 mg-vit C 60 mg-biotin 300 mcg tablet ([employer]-[facility]) epoetin kateryna-epbx 10,000 unit 05/11/21 06/18/21 Unknown History 10,000 unit/mL SUBCUT WE injection solution (Retacrit) sennosides 8.6 mg 1 - 2 tab PO 05/11/21 06/18/21 Unknown History tablet (senna) BEDTIME PRN sodium citrate 4 6 ml 05/11/21 06/18/21 Unknown History % (3 mL) INTRA-CATHETER MOWEFR intra-catheter injection syringe acetaminophen 500 500 mg PO Q8H 06/10/21 06/18/21 Unknown History mg tablet PRN mirtazapine 15 mg 1 tab PO BEDTIME 06/10/21 06/18/21 Unknown History tablet sevelamer 1 tab PO TID 06/10/21 06/18/21 Unknown History carbonate 800 mg tablet triamcinolone 1 appl TOPICAL 06/10/21 06/18/21 Unknown History acetonide 0.025 % BID topical cream nicotine 21 mg/24 1 patch TOPICAL 06/18/21 06/18/21 Unknown History hr daily DAILY transdermal patch Physical Exam Vital Signs: Last Vital Signs Temp 98.4 F 06/19/21 04:06 Pulse 69 06/19/21 05:38 Resp 16 06/19/21 05:38 BP 161/77 H 06/19/21 05:38 Pulse Ox 98 06/19/21 05:38 BMI result Verdana 4 Body Mass Index Verdana 4 31.6 Verdana 4 Verdana 4 Const General: cooperative and no acute distress Orientation/consciousness: oriented to person, oriented to place and patient oriented x3 Limitations: no limitations HENMT Head: Yes normal to inspection, Yes normocephalic and Yes atraumatic Ears: external ears normal General nose exam: Normal external nose present Face and sinus: Yes normal facial exam Mouth: Normal oral and palatal mucosa present Throat: Yes posterior oropharynx normal Eyes General: appearance normal, both eyes and all related structures Pupils: Equal, round and reactive pupils present Neck Neck: Yes normal visual inspection, Yes no lymphadenopathy, Yes trachea midline and Yes supple Chest Chest palpation & inspection: normal inspection of the chest and normal palpation of entire chest wall Resp Effort & Inspection: normal respiratory effort and able to speak in complete sen tences Auscultation: clear to auscultation bilaterally Cardio Rate: regular rate Rhythm: regular rhythm Heart sounds: S1 normal heart sound present, S2 normal heart sound present and no murmurs GI Inspection: Yes normal to inspection Palpation (GI): Soft to palpation, nontender and no guarding Auscultation: normal bowel sounds General: Yes no CVA tenderness Back/Spine/Pelvis Back: no CVA tenderness Skin General skin exam: no rashes or lesions noted Neuro General: oriented to person, oriented to place and patient oriented x3 Cranial nerves: Yes CN's II-XII intact bilaterally and Yes Equal, round and reactive pupils present Cognition (Neuro): normal cognition Motor exam (neuro): 5/5 motor strength present throughout Extrem Other: trace pedal edema General: Yes normal to inspection Psych Appearance: grossly normal Speech and movement: Normal speech and movement present Affect: normal affect Attitude: cooperative Thought process: Normal thought process present Thought content: Normal thought content present Results Lab Results Result Diagrams: 06/19/21 Unknown 06/19/21 05:37 Lab results: Chemistry 06/18/21 06/18/21 06/19/21 16:35 21:48 05:37 Sodium 134 L 139 136 Potassium 5.9 H 5.7 H 4.9 Carbon Dioxide 19 L 18 L 22 BUN 57 H D 57 H 61 H Creatinine 13.42 H* 13.62 H* 13.74 H* Calcium 9.1 9.6 8.5 D Hematology 06/18/21 06/19/21 16:35 Unknown WBC 9.4 7.5 Hgb 11.8 L 10.9 L Plt Count 178 D 153 L Assessment and Plan (1) Hypertensive urgency: Status: Acute (2) ESRD (end stage renal disease): Status: Acute Plan This is a 66-year-old female well known to us with ESRD on dialysis Sunday multiple medical problems including a monoclonal gammopathy hypertension diabetes CHF noncompliance she presented with a severely high blood pressure the emergency room and shortness of breath she had missed 2 dialysis treatments we did emergency dialysis last night and she is now back to her baseline Procedures Date of Service Date of Service: 06/19/21
--- NOTE | 2021-06-19 08:42 | PM.CNNEP ---
History of Present Illness Reason for Consult Consult date: 06/19/21 Chief Complaint Chief complaint: Missed Dialysis, Hypertensive Crisis, Hyperkalemia Review of Systems Review of Systems Yes all other systems are reviewed and are negative [facility] Past Medical History Medical History (Updated 06/19/21 @ 05:39 by Robert Torres MD) Acute kidney injury superimposed on chronic kidney disease VANDANA (acute kidney injury) Anemia in chronic kidney disease CHF (congestive heart failure) Constipation Diabetes mellitus Diastolic congestive heart failure End-stage renal disease (ESRD) Essential hypertension HTN (hypertension) HTN (hypertension) Hypertension Non-compliance Normocytic anemia Family History Family History Other Hypertension Surgical History Surgical History No pertinent past surgical history Social History Social History Household Members: None Housing: House Do you presently have visiting nurse or other home services: Yes Alcohol intake: unknown Patient Tobacco Use Status: Current everyday Tobacco user Tobacco use type: Cigarette Cigarette Packs Per Day: 1 Smoked in Last 30 Days: Yes Second Hand Smoke Exposure: No Use of substances other than those prescribed or required for medical reasons: No Substance Use Type: Heroin Advance Directives: Yes Advance Directives on File: Yes Advance Directives Date on File: 04/20/21 service: No Current occupational status: disabled Meds Allergies Allergy/AdvReac Type Severity Reaction Status Date / Time No Known Allergies Allergy Mild NOT Verified 12/14/20 11:50 APPLICABLE Active Medications: Current Medications Acetaminophen (Acetaminophen 325 Mg Tablet) 650 mg PO Q6H PRN PRN Reason: Pain, Mild (Pain Scale 1-3) Albuterol/Ipratropium (Albuterol/Iprat 2.5/0.5mg 3 Ml Ampul.Neb) 3 ml INHALE RQ4H PRN PRN Reason: Shortness of Breath/Wheezing Amlodipine Besylate (Amlodipine Besylate 10 Mg Tablet) 10 mg PO BEDTIME PHAN; Protocol Last Admin: 06/19/21 02:10 Dose: 10 mg Documented by: Aspirin (Aspirin Enteric Coated 81 Mg Tablet.) 81 mg PO DAILY [facility] Bumetanide (Bumetanide 1 Mg Tablet) 2 mg PO DAILY PH[facility]; Protocol Buprenorphine/Naloxone (Buprenorphine/Naloxone 8/2 Mg Film) 1 film SUBLINGUAL BID [facility] Clonidine HCl (Clonidine Hcl 0.1 Mg Tablet) 0.1 mg PO TID [facility]; Protocol Last Admin: 06/19/21 04:17 Dose: 0.1 mg Documented by: Dextrose (Dextrose 50 % 25 Gm/50 Ml Syringe) 25 gm IVPUSH Q15M PRN; Protocol PRN Reason: per Hypoglycemia Standing Ord. Diltiazem HCl (Diltiazem Hcl Cd 180 Mg Cap.Er.24h) 180 mg PO DAILY [facility]; Protocol Docusate Sodium (Docusate Sodium 100 Mg Capsule) 100 mg PO DAILY PRN PRN Reason: Constipation Epoetin Kateryna (Epoetin Kateryna 10,000 Unit/Ml Vial) 10,000 unit SUBCUT WE [facility] Fluticasone Propionate (Fluticasone Propionate 100 Mcg Blst.W.Dev) 1 puff INHALE RBID [facility] Last Admin: 06/19/21 08:25 Dose: Not Given Documented by: Glucose (Glucose Gel 15 Gm Gel..Gram.) 15 gm PO Q15M PRN; Protocol PRN Reason: per Hypoglycemia Standing Ord. Heparin Sodium (Porcine) (Heparin Sodium,Porcine 5,000 Unit/Ml Vial) 5,000 unit SUBCUT Q12H [facility] Last Admin: 06/18/21 22:06 Dose: Not Given Documented by: Hydralazine HCl (Hydralazine Hcl 50 Mg Tablet) 100 mg PO TID [facility]; Protocol Last Admin: 06/19/21 04:17 Dose: 100 mg Documented by: Insulin Glargine (Insulin Glargine,Hum.Rec.Anlog 100 Unit/Ml 10 Ml Vial) 14 unit SUBCUT DAILY [facility] Insulin Human Lispro (Insulin Lispro 100 Unit/Ml 3 Ml Vial) 0 unit SUBCUT QIDACHS [facility]; Protocol Last Admin: 06/19/21 07:31 Dose: Not Given Documented by: Melatonin (Melatonin 3 Mg Tablet) 6 mg PO BEDTIME PRN PRN Reason: Sleep Mirtazapine (Mirtazapine 15 Mg Tablet) 15 mg PO BEDTIME [facility] Multivitamins/Vitamin C (Multivitamin Tablet) 1 tab PO DAILY [facility] Nicotine (Nicotine 21 Mg Patch.Td24) 21 mg TRANSDERMA DAILY [facility] Olanzapine (Olanzapine 10 Mg Tablet) 10 mg PO BEDTIME [facility] Omeprazole (Omeprazole 20 Mg Capsule.) 20 mg PO DAILY@0630 [facility] Last Admin: 06/19/21 06:37 Dose: 20 mg Documented by: Ondansetron HCl (Ondansetron Hcl 4 Mg/2 Ml Vial) 4 mg IVPUSH Q8H PRN PRN Reason: Nausea and Vomiting Last Admin: 06/19/21 04:26 Dose: 4 mg Documented by: Pharmacy Consult (Consult Rx Perform Med Rec) 1 each MISCELLANE ONCE PRN PRN Reason: Consult order Sevelamer Carbonate (Sevelamer Carbonate Tablet 800 Mg Tablet) 800 mg PO TID [facility] Sodium Chloride (0.9 % Sodium Chloride Flush 3 Ml Syringe) 3 ml IVFLUSH QSHIFT [facility] Last Admin: 06/19/21 00:25 Dose: Not Given Documented by: Tiotropium [place] (Tiotropium [place] 18 Mcg Cap.W.Dev) 1 puff INHALE DAILY [facility] Last Admin: 06/19/21 08:25 Dose: Not Given Documented by: Trazodone HCl (Trazodone Hcl 100 Mg Tablet) 200 mg PO BEDTIME [facility] Last Admin: 06/19/21 04:18 Dose: Not Given Documented by: Triamcinolone Acetonide (Triamcinolone Acet 0.025 % Cream 15 Gm Tube) 1 appl TOPICAL BID [facility]; Protocol Home Medications Medication Instructions Recorded Confirmed Last Taken Type aspirin 81 mg tablet,delayed 81 mg PO DAILY 10/22/20 06/18/21 Unknown History release buprenorphine 8 mg-naloxone 2 mg 1 strip SUBLINGUAL BID 10/22/20 06/18/21 Unknown History sublingual film (Suboxone) clonidine HCl 0.1 mg tablet 0.1 mg PO TID 10/22/20 06/18/21 Unknown History diltiazem HCl 180 mg 180 mg PO DAILY 10/22/20 06/18/21 Unknown History capsule,extended release 24 hr insulin lispro 100 unit/mL See Protocol SUBCUT TIDAC 10/22/20 06/18/21 Unknown History subcutaneous pen (Humalog KwikPen (U-100) Insulin) tiotropium bromide 18 mcg capsule 1 cap INHALATION DAILY 10/22/20 06/18/21 Unknown History with inhalation device (Spiriva with HandiHaler) trazodone 100 mg tablet 1 - 2 tab PO BEDTIME 10/22/20 06/18/21 Unknown History olanzapine 10 mg tablet 10 mg PO BEDTIME 02/25/21 06/18/21 Unknown History bumetanide 2 mg tablet 2 mg PO DAILY 04/15/21 06/18/21 Unknown History fluticasone propionate 110 1 puff INHALATION BID 04/15/21 06/18/21 Unknown History mcg/actuation HFA aerosol inhaler (Flovent HFA) melatonin 5 mg tablet 5 mg PO BEDTIME PRN 04/15/21 06/18/21 Unknown History pantoprazole 40 mg tablet,delayed 40 mg PO DAILY 04/15/21 06/18/21 Unknown History release vitamin B comp no.3-folic acid 1 1 tab PO DAILY 04/15/21 06/18/21 Unknown History mg-vit C 60 mg-biotin 300 mcg tablet ([employer]) epoetin kateryna-epbx 10,000 unit/mL 10,000 unit SUBCUT WE 05/11/21 06/18/21 Unknown History injection solution (Retacrit) sennosides 8.6 mg tablet (senna) 1 - 2 tab PO BEDTIME PRN 05/11/21 06/18/21 Unknown History sodium citrate 4 % (3 mL) 6 ml INTRA-CATHETER MOWEFR 05/11/21 06/18/21 Unknown History intra-catheter injection syringe acetaminophen 500 mg tablet 500 mg PO Q8H PRN 06/10/21 06/18/21 Unknown History mirtazapine 15 mg tablet 1 tab PO BEDTIME 06/10/21 06/18/21 Unknown History sevelamer carbonate 800 mg tablet 1 tab PO TID 06/10/21 06/18/21 Unknown History triamcinolone acetonide 0.025 % 1 appl TOPICAL BID 06/10/21 06/18/21 Unknown History topical cream nicotine 21 mg/24 hr daily 1 patch TOPICAL DAILY 06/18/21 06/18/21 Unknown History transdermal patch Physical Exam Vital Signs: Last Vital Signs Temp 98.4 F 06/19/21 04:06 Pulse 69 06/19/21 05:38 Resp 16 06/19/21 05:38 BP 161/77 H 06/19/21 05:38 Pulse Ox 98 06/19/21 05:38 BMI result Body Mass Index 31.6 Const General: cooperative and no acute distress Orientation/consciousness: oriented to person, oriented to place and patient oriented x3 Limitations: no limitations [facility] Head: Yes normal to inspection, Yes normocephalic and Yes atraumatic Ears: external ears normal General nose exam: Normal external nose present Face and sinus: Yes normal facial exam Mouth: Normal oral and palatal mucosa present Throat: Yes posterior oropharynx normal Eyes General: appearance normal, both eyes and all related structures Pupils: Equal, round and reactive pupils present Neck Neck: Yes normal visual inspection, Yes no lymphadenopathy, Yes trachea midline and Yes supple Chest Chest palpation & inspection: normal inspection of the chest and normal palpation of entire chest wall Resp Effort & Inspection: normal respiratory effort and able to speak in complete sentences Auscultation: clear to auscultation bilaterally Cardio Rate: regular rate Rhythm: regular rhythm Heart sounds: S1 normal heart sound present, S2 normal heart sound present and no murmurs GI Inspection: Yes normal to inspection Palpation (GI): Soft to palpation, nontender and no guarding Auscultation: normal bowel sounds General: Yes no CVA tenderness Back/Spine/Pelvis Back: no CVA tenderness Skin General skin exam: no rashes or lesions noted Neuro General: oriented to person, oriented to place and patient oriented x3 Cranial nerves: Yes CN's II-XII intact bilaterally and Yes Equal, round and reactive pupils present Cognition (Neuro): normal cognition Motor exam (neuro): 5/5 motor strength present throughout Extrem Other: trace pedal edema General: Yes normal to inspection Psych Appearance: grossly normal Speech and movement: Normal speech and movement present Affect: normal affect Attitude: cooperative Thought process: Normal thought process present Thought content: Normal thought content present Results Lab Results Result Diagrams: 06/19/21 Unknown 06/19/21 05:37 Lab results: Chemistry 06/18/21 06/18/21 06/19/21 16:35 21:48 05:37 Sodium 134 L 139 136 Potassium 5.9 H 5.7 H 4.9 Carbon Dioxide 19 L 18 L 22 BUN 57 H D 57 H 61 H Creatinine 13.42 H* 13.62 H* 13.74 H* Calcium 9.1 9.6 8.5 D Hematology 06/18/21 06/19/21 16:35 Unknown WBC 9.4 7.5 Hgb 11.8 L 10.9 L Plt Count 178 D 153 L Assessment and Plan (1) Hypertensive urgency: Status: Acute (2) ESRD (end stage renal disease): Status: Acute Plan This is a 66-year-old female well known to us with ESRD on dialysis Sunday multiple medical problems including a monoclonal gammopathy hypertension diabetes CHF noncompliance she presented with a severely high blood pressure the emergency room and shortness of breath she had missed 2 dialysis treatments we did emergency dialysis last night and she is now back to her baseline Procedures Date of Service Date of Service: 06/19/21
--- NOTE | 2021-06-19 08:51 | P.PNIM_ITS ---
Subjective Subjective Date of Service: 06/19/21 Interval History: esrd on hd, knee arthritis Patient admitted for hospital for special care dialysis, hypertension uncontrolled, hyperkalemia. Review of Systems has knee pain Denies any chest pain or shortness of breath abdominal pain or fever chills. Physical Exam Verdana 4l Vital Signs: Verdana 4d Verdana 4d Vital Signs: Verdana 4d Verdana 4Bd Last Vital Signs Verdana 4d Enrichment Teacher New 4d Enrichment Teacher New 4d Temp 98.4 F 06/19/21 04:06 Enrichment Teacher New 4d Pulse 69 06/19/21 05:38 Enrichment Teacher New 4d Resp 16 06/19/21 05:38 BP 161/77 H 06/19/21 05:38 Pulse Ox 98 06/19/21 05:38 BMI result Body Mass Index 31.6 Appearance: Alert.? Oriented X3.?has knee right side pain. Eyes: Pupils equal, round and reactive to light.? Sclera nonicteric.? ENT: Pharynx normal.? Moist mucous membranes. cvs: rrr, [id number] , no murmur res: clear to auscultation ,no rhonchii or wheezing abd: no rebound or guarding ,nt, bs present. ext pulses present , no cyanosis . neuro: axo3 , nonfocal. Objective Data Active Medications Acetaminophen (Acetaminophen 325 Mg Tablet) 650 mg PO Q6H PRN PRN Reason: Pain, Mild (Pain Scale 1-3) Albuterol/Ipratropium (Albuterol/Iprat 2.5/0.5mg 3 Ml Ampul.Neb) 3 ml INHALE RQ4H PRN PRN Reason: Shortness of Breath/Wheezing Amlodipine Besylate (Amlodipine Besylate 10 Mg Tablet) 10 mg PO BEDTIME PHAN; Protocol Last Admin: 06/19/21 02:10 Dose: 10 mg Documented by: SHAHEED Aspirin (Aspirin Enteric Coated 81 Mg Tablet.) 81 mg PO DAILY [facility] Bumetanide (Bumetanide 1 Mg Tablet) 2 mg PO DAILY [facility]; Protocol Buprenorphine/Naloxone (Buprenorphine/Naloxone 8/2 Mg Film) 1 film SUBLINGUAL BID [facility] Clonidine HCl (Clonidine Hcl 0.1 Mg Tablet) 0.1 mg PO TID [facility]; Protocol Last Admin: 06/19/21 04:17 Dose: 0.1 mg Documented by: SHAHEED Dextrose (Dextrose 50 % 25 Gm/50 Ml Syringe) 25 gm IVPUSH Q15M PRN; Protocol PRN Reason: per Hypoglycemia Standing Ord. Diltiazem HCl (Diltiazem Hcl Cd 180 Mg Cap.Er.24h) 180 mg PO DAILY [facility]; Protocol Docusate Sodium (Docusate Sodium 100 Mg Capsule) 100 mg PO DAILY PRN PRN Reason: Constipation Epoetin Fabricio (Epoetin Fabricio 10,000 Unit/Ml Vial) 10,000 unit SUBCUT WE [facility] Fluticasone Propionate (Fluticasone Propionate 100 Mcg Blst.W.Dev) 1 puff INHALE RBID [facility] Last Admin: 06/19/21 08:25 Dose: Not Given Documented by: JEANETTE Non-Admin Reason: Med Not Available Glucose (Glucose Gel 15 Gm Gel..Gram.) 15 gm PO Q15M PRN; Protocol PRN Reason: per Hypoglycemia Standing Ord. Heparin Sodium (Porcine) (Heparin Sodium,Porcine 5,000 Unit/Ml Vial) 5,000 unit SUBCUT Q12H [facility] Last Admin: 06/18/21 22:06 Dose: Not Given Documented by: SHAHEED Non-Admin Reason: Patient Refused Hydralazine HCl (Hydralazine Hcl 50 Mg Tablet) 100 mg PO TID [facility]; Protocol Last Admin: 06/19/21 04:17 Dose: 100 mg Documented by: SHAHEED Insulin Glargine (Insulin Glargine,Hum.Rec.Anlog 100 Unit/Ml 10 Ml Vial) 14 unit SUBCUT DAILY [facility] Insulin Human Lispro (Insulin Lispro 100 Unit/Ml 3 Ml Vial) 0 unit SUBCUT QIDACHS [facility]; Protocol Last Admin: 06/19/21 07:31 Dose: Not Given Documented by: MIRIAM Non-Admin Reason: poc 92 Melatonin (Melatonin 3 Mg Tablet) 6 mg PO BEDTIME PRN PRN Reason: Sleep Mirtazapine (Mirtazapine 15 Mg Tablet) 15 mg PO BEDTIME [facility] Multivitamins/Vitamin C (Multivitamin Tablet) 1 tab PO DAILY [facility] Nicotine (Nicotine 21 Mg Patch.Td24) 21 mg TRANSDERMA DAILY [facility] Olanzapine (Olanzapine 10 Mg Tablet) 10 mg PO BEDTIME [facility] Omeprazole (Omeprazole 20 Mg Capsule.Dr) 20 mg PO DAILY@0630 [facility] Last Admin: 06/19/21 06:37 Dose: 20 mg Documented by: SHAHEED Ondansetron HCl (Ondansetron Hcl 4 Mg/2 Ml Vial) 4 mg IVPUSH Q8H PRN PRN Reason: Nausea and Vomiting Last Admin: 06/19/21 04:26 Dose: 4 mg Documented by: SHAHEED Pharmacy Consult (Consult Rx Perform Med Rec) 1 each MISCELLANE ONCE PRN PRN Reason: Consult order Sevelamer Carbonate (Sevelamer Carbonate Tablet 800 Mg Tablet) 800 mg PO TID [facility] Sodium Chloride (0.9 % Sodium Chloride Flush 3 Ml Syringe) 3 ml IVFLUSH QSHIFT [facility] Last Admin: 06/19/21 00:25 Dose: Not Given Documented by: SHAHEED Non-Admin Reason: Med Not Available Tiotropium [place] (Tiotropium [place] 18 Mcg Cap.W.Dev) 1 puff INHALE DAILY [facility] Last Admin: 06/19/21 08:25 Dose: Not Given Documented by: JEANETTE Non-Admin Reason: Med Not Available Trazodone HCl (Trazodone Hcl 100 Mg Tablet) 200 mg PO BEDTIME [facility] Last Admin: 06/19/21 04:18 Dose: Not Given Documented by: SHAHEED Non-Admin Reason: Patient Refused Triamcinolone Acetonide (Triamcinolone Acet 0.025 % Cream 15 Gm Tube) 1 appl TOPICAL BID [facility]; Protocol Labs CBC & Chem 7: 06/19/21 Unknown 06/19/21 05:37 Labs: Laboratory Results - last 24 hr 06/18/21 06/18/21 06/18/21 16:33 16:35 16:35 MCV 91.5 MCH 28.8 MCHC 31.5 RDW 15.3 Plt Count 178 D MPV 9.4 Immature Gran % (Auto) 0.3 Neut % (Auto) 79.7 H Lymph % (Auto) 13.4 L Clay % (Auto) 4.7 Eos % (Auto) 1.7 Baso % (Auto) 0.2 Lymph # (Auto) 1.3 Clay # (Auto) 0.4 Eos # (Auto) 0.2 Baso # (Auto) 0.0 Abs Immat Gran (auto) 0.03 Absolute Neuts (auto) 7.5 Absolute Nucleated RBC 0.000 Nucleated RBC % (auto) 0.0 Anion Gap 22 H Estim Creat Clear Calc 3.8 Estimated GFR 3 POC Glucose Random Glucose 74 Calcium 9.1 Total Bilirubin 0.4 AST 28 ALT 19 Alkaline Phosphatase 129 H B-Natriuretic Peptide Total Protein 6.8 Albumin 3.7 COVID-19 (KRYSTINA) Negative COVID-19 Clin Com See Note 06/18/21 06/18/21 06/19/21 21:22 21:48 05:37 MCV MCH MCHC RDW Plt Count MPV Immature Gran % (Auto) Neut % (Auto) Lymph % (Auto) Clay % (Auto) Eos % (Auto) Baso % (Auto) Lymph # (Auto) Clay # (Auto) Eos # (Auto) Baso # (Auto) Abs Immat Gran (auto) Absolute Neuts (auto) Absolute Nucleated RBC Nucleated RBC % (auto) Anion Gap 28 H 21 H Estim Creat Clear Calc 3.8 3.7 Estimated GFR 3 3 POC Glucose 87 Random Glucose 96 100 Calcium 9.6 8.5 D Total Bilirubin AST ALT Alkaline Phosphatase B-Natriuretic Peptide Total Protein Albumin COVID-19 (KRYSTINA) COVID-FoxyP2 Com 06/19/21 06/19/21 06/19/21 05:37 07:16 Unknown MCV 91.7 MCH 29.2 MCHC 31.9 RDW 15.3 Plt Count 153 L MPV 9.3 L Immature Gran % (Auto) 0.5 H Neut % (Auto) 79.1 H Lymph % (Auto) 12.9 L [place] % (Auto) 5.1 Eos % (Auto) 2.1 Baso % (Auto) 0.3 Lymph # (Auto) 1.0 L [place] # (Auto) 0.4 Eos # (Auto) 0.2 Baso # (Auto) 0.0 Abs Immat Gran (auto) 0.04 H Absolute Neuts (auto) 6.0 Absolute Nucleated RBC 0.000 Nucleated RBC % (auto) 0.0 Anion Gap Estim Creat Clear Calc Estimated GFR POC Glucose 92 Random Glucose Calcium Total Bilirubin AST ALT Alkaline Phosphatase B-Natriuretic Peptide 1224 H Total Protein Albumin COVID-19 (KRYSTINA) COVID-19 Clin Com Assessment and Plan (1) Acute hyperkalemia: Status: Acute (2) Dialysis patient, noncompliant: Status: Acute (3) Hypertensive crisis: Status: Acute Plan 66-year-old female with history of ESRD on dialysis who is a frequent Flyer to the hospital given her noncompliance with her dialysis session presents to the hospital again after missing several dialysis sessions and being found hypertensive and hyperkalemic Her visiting nurse of note patient was discharged from the hospital on 11 of June for the same reasons 1. hyperkalemia/esrd- secondary to missed dialysis - patient received Kayexalate hyperkalmeia improving nephro eval added -going for hd today 2. hypertensive uncontrolled. - possibly secondary to noncompliance - will resume her home medications 3. diabetes - resume home insulin - diabetic diet 4. COPD - continue home inhalers - DuoNeb p.r.n. 5. CHF- x-ray negative for volume overload bnp elevated from basleine patient will getting hd , we will evaluate after . continue home Bumex 6. knee pain: knee xray from previous vivsit -seems has OA Added lidocaine patch and Tylenol DVT prophylaxis:? Heparin subQ Quality Stroke Does the patient have a stroke diagnosis?: No VTE Prior VTE?: No VTE Risk Level:: Medical - moderate - high VTE Device Contraindication: Treatment Not Indicated VTE Drug Contraindication: N/A - Med Ordered
--- NOTE | 2021-06-19 10:58 | PC.NURSE ---
pt reporting knee pain at 8/10 while at dialysis, pt medicated with tylenol while in dialysis
--- NOTE | 2021-06-19 11:40 | MHC.CM.PN ---
CM spoke with Patient's FILTER TIP INSPECTOR/Benjie at [phone] and addressed MORRISSEY with him. Patient lives alone in her apartment and receives BID RN visits from [facility] and has a [employer] FILTER TIP INSPECTOR 47 hours/week. Home/resume said services is the goal and CM has initialed and will follow for dc planning. PCP is Dr. Dan and Patient has received Benefitter x 3 Koru vax.
--- NOTE | 2021-06-19 11:50 | MHC.CM.PN ---
Patient goes to [facility] every Sunday//Sunday.
[2021-06-19 12:22] VITALS: BP 171/75; PULSE 83; RESP 18; O2SAT 95
[2021-06-19] MEDS: Buprenorphine/Naloxone 8/2 mg FILM 1 FILM SUBLINGUAL (12:25)
[2021-06-19] MEDS: Nicotine 21 MG PATCH.TD24 TRANSDERMA (12:25)
[2021-06-19] MEDS: dilTIAZem HCL CD 180 MG CAP.ER.24H PO (12:25)
[2021-06-19] MEDS: Multivitamin TABLET 1 TAB PO (12:26)
[2021-06-19] MEDS: Sevelamer Carbonate Tablet 800 MG TABLET PO (12:26)
[2021-06-19] MEDS: Bumetanide 1 MG TABLET 2 MG PO (12:26)
[2021-06-19] MEDS: Aspirin Enteric Coated 81 MG TABLET.DR PO (12:27)
[2021-06-19] MEDS: Insulin Glargine,Hum.rec.anlog 100 UNIT/ML 10 ML VIAL 14 UNIT SUBCUT (12:27)
[2021-06-19] MEDS: Heparin Sodium,Porcine 5,000 UNIT/ML VIAL 5000 UNIT SUBCUT (12:27)
[2021-06-19] MEDS: 0.9 % Sodium Chloride Flush 3 ML SYRINGE IVFLUSH (12:34)
[2021-06-19 12:46] LABS: Glucose, Whole Blood 133 mg/dL (60-115)
--- NOTE | 2021-06-19 15:00 | P.DS_ITS ---
DS: Providers Provider Date of Service: 06/19/21 Date of admission: 06/18/21 20:11 Primary care physician: Unknown Physician Consults: 06/18/21 20:11 Consult to Nephrology Routine Consulting Provider: [facility] Reason for consultation: missed dialysis Has provider been notified: Yes DS: Diagnosis Discharge Diagnosis (1) Acute hyperkalemia: Status: Acute (2) Dialysis patient, noncompliant: Status: Acute (3) Hypertensive crisis: Status: Acute DS: Summary Hospital Course Hospital Course: 66-year-old female with past medical history of ESRD on dialysis Sunday and Sunday, CHF, diabetes, hypertension, noncompliance present with complaints of hypertension.? Patient reports that she missed 2 session of her dialysis last week, her nurse came to visit her at home on day presentation ( sat) and found her to be hypertensive. Pt then decided to go to dialysis but according to her the van never picked her up so she decided to come to the ED instead. She denies any headache, no change in vision, no chest pain, no palpitations.? No lower extremity edema.? has nausea, no abdominal pain, no diarrhea or constipation. she still produces urine and denies any urnary symptoms On arrival to the ED patient found to have vital significant for blood pressure of 190/92, heart rate of 79, temp of 98.4? Labs significant for potassium of 5.9, creatinine of 13.42, alk-phos of 129 Chest x-ray shows no acute pulmonary pathology nephrology was consulted by ed- wants pt to be admitted for dialysis. hospital course: Patient was admitted for hypertensive urgency, hyperkalemia due to missing hemodialysis.? Patient's symptoms improved with hemodialysis, blood pressure seems to be improving after HD .? Patient is feeling much better is requesting to be discharged home.? 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 as per care takers her blood pressure runs between 150-170 mmhg at home also due to htn medication noncomplance , strongly encouraged to take blood pressure meds -if blood pressure still uncontrolled may needs further adjustment of her htn meds outpatiently as per nephrology and pcp. she intially complain of knee pain but improved and walked with the staff. Time Spent with Patient Time attestation: Total time spent providing and/or coordinating discharge services: Discharge coordination time: Greater than 30 minutes Quality: Stroke Does the patient have a stroke diagnosis?: No Physical Exam Verdana 4l Vital Signs: Verdana 4d Verdana 4d Vital Signs: Verdana 4d Verdana 4Bd Last Vital Signs Verdana 4d Electric Accounting Machine Operator New 4d Electric Accounting Machine Operator New 4d Temp 98.4 F 06/19/21 04:06 Electric Accounting Machine Operator New 4d Pulse 83 06/19/21 12:22 Electric Accounting Machine Operator New 4d Resp 18 06/19/21 12:22 BP 171/75 H 06/19/21 12:22 Pulse Ox 95 06/19/21 12:22 BMI result Body Mass Index 31.6 Appearance: Alert.? Oriented X3.?has knee right side pain. Eyes: Pupils equal, round and reactive to light.? Sclera nonicteric.? ENT: Pharynx normal.? Moist mucous membranes. cvs: rrr, [id number] , no murmur res: clear to auscultation ,no rhonchii or wheezing abd: no rebound or guarding ,nt, bs present. ext pulses present , no cyanosis . neuro: axo3 , nonfocal. DS: Data Data Completed and Pending Completed studies during hospitalization [Text1]: Procedures Excision of Left Kidney, Percutaneous Approach, Diagnostic (02/25/21) Excision of Right Kidney, Percutaneous Approach, Diagnostic (10/22/20) Insertion of Infusion Device into Superior Vena Cava, Percutaneous Approach (02/25/21) Insertion of Tunneled Vascular Access Device into Chest Subcutaneous Tissue and Fascia, Percutaneous Approach (02/25/21) Performance of Urinary Filtration, Intermittent, Less than 6 Hours Per Day (06/10/21) Transfusion of Nonautologous Red Blood Cells into Peripheral Vein, Percutaneous Approach (02/25/21) Labs on day of discharge: Laboratory Results - last 24 hr 06/18/21 06/18/21 06/18/21 16:33 16:35 16:35 WBC 9.4 RBC 4.10 L Hgb 11.8 L Hct 37.5 MCV 91.5 MCH 28.8 MCHC 31.5 RDW 15.3 Plt Count 178 D MPV 9.4 Immature Gran % (Auto) 0.3 Neut % (Auto) 79.7 H Lymph % (Auto) 13.4 L [place] % (Auto) 4.7 Eos % (Auto) 1.7 Baso % (Auto) 0.2 Lymph # (Auto) 1.3 [place] # (Auto) 0.4 Eos # (Auto) 0.2 Baso # (Auto) 0.0 Abs Immat Gran (auto) 0.03 Absolute Neuts (auto) 7.5 Absolute Nucleated RBC 0.000 Nucleated RBC % (auto) 0.0 Sodium 134 L Potassium 5.9 H Chloride 99 Carbon Dioxide 19 L Anion Gap 22 H BUN 57 H D Creatinine 13.42 H* Estim Creat Clear Calc 3.8 Estimated GFR 3 POC Glucose Random Glucose 74 Calcium 9.1 Total Bilirubin 0.4 AST 28 ALT 19 Alkaline Phosphatase 129 H B-Natriuretic Peptide Total Protein 6.8 Albumin 3.7 COVID-19 (KRYSTINA) Negative COVID-19 Clin Com See Note 06/18/21 06/18/21 06/19/21 21:22 21:48 05:37 WBC RBC Hgb Hct MCV MCH MCHC RDW Plt Count MPV Immature Gran % (Auto) Neut % (Auto) Lymph % (Auto) [place] % (Auto) Eos % (Auto) Baso % (Auto) Lymph # (Auto) [place] # (Auto) Eos # (Auto) Baso # (Auto) Abs Immat Gran (auto) Absolute Neuts (auto) Absolute Nucleated RBC Nucleated RBC % (auto) Sodium 139 136 Potassium 5.7 H 4.9 Chloride 99 98 Carbon Dioxide 18 L 22 Anion Gap 28 H 21 H BUN 57 H 61 H Creatinine 13.62 H* 13.74 H* Estim Creat Clear Calc 3.8 3.7 Estimated GFR 3 3 POC Glucose 87 Random Glucose 96 100 Calcium 9.6 8.5 D Total Bilirubin AST ALT Alkaline Phosphatase B-Natriuretic Peptide Total Protein Albumin COVID-19 (KRYSTINA) COVID-19 Clin Com 06/19/21 06/19/21 06/19/21 05:37 07:16 12:21 WBC RBC Hgb Hct MCV MCH MCHC RDW Plt Count MPV Immature Gran % (Auto) Neut % (Auto) Lymph % (Auto) [place] % (Auto) Eos % (Auto) Baso % (Auto) Lymph # (Auto) [place] # (Auto) Eos # (Auto) Baso # (Auto) Abs Immat Gran (auto) Absolute Neuts (auto) Absolute Nucleated RBC Nucleated RBC % (auto) Sodium Potassium Chloride Carbon Dioxide Anion Gap BUN Creatinine Estim Creat Clear Calc Estimated GFR POC Glucose 92 133 H Random Glucose Calcium Total Bilirubin AST ALT Alkaline Phosphatase B-Natriuretic Peptide 1224 H Total Protein Albumin COVID-19 (KRYSTINA) [employer] 06/19/21 Unknown WBC 7.5 RBC 3.73 L Hgb 10.9 L Hct 34.2 L MCV 91.7 MCH 29.2 MCHC 31.9 RDW 15.3 Plt Count 153 L MPV 9.3 L Immature Gran % (Auto) 0.5 H Neut % (Auto) 79.1 H Lymph % (Auto) 12.9 L [place] % (Auto) 5.1 Eos % (Auto) 2.1 Baso % (Auto) 0.3 Lymph # (Auto) 1.0 L [place] # (Auto) 0.4 Eos # (Auto) 0.2 Baso # (Auto) 0.0 Abs Immat Gran (auto) 0.04 H Absolute Neuts (auto) 6.0 Absolute Nucleated RBC 0.000 Nucleated RBC % (auto) 0.0 Sodium Potassium Chloride Carbon Dioxide Anion Gap BUN Creatinine Estim Creat Clear Calc Estimated GFR POC Glucose Random Glucose Calcium Total Bilirubin AST ALT Alkaline Phosphatase B-Natriuretic Peptide Total Protein Albumin COVID-19 (KRYSTINA) COVID-19 [employer]ient Additional Comments Additional comments: XR/XR chest 1V IMPRESSION: No acute pulmonary finding. ? Discharge Plan Discharge Patient Disposition: Home Health Service Discharge Diagnosis: hyperkalemia , esrd Referrals: Physician,Unknown J [Primary Care Provider] - 1 Week Discharge Medications: Continued trazodone 100 mg tablet 1 - 2 tab PO BEDTIME 0RF buprenorphine-naloxone [Suboxone] 8-2 mg film 1 strip sublingual BID 0RF clonidine HCl 0.1 mg tablet 0.1 mg PO TID 0RF diltiazem HCl 180 mg capsule,extended release 24hr 180 mg PO DAILY 0RF aspirin 81 mg tablet,delayed release (DR/EC) 81 mg PO DAILY 0RF insulin lispro [Humalog KwikPen Insulin] 100 unit/mL insulin pen See Protocol unit subcut TIDAC 0RF Protocol: Insulin Correction Scale Less than or equal to 110 ---- Give (units): 0 111 to 150 Give (units): 0 151 to 200 Give (units): 2 201 to 250 Give (units): 4 251 to 300 Give (units): 6 301 to 350 Give (units): 8 Greater than 350 Give (units): 10 Call MD if Blood Glucose > : 350 Spiriva with HandiHaler 18 mcg capsule, w/inhalation device 1 cap inhalation DAILY 0RF acetaminophen 500 mg Tablet 500 mg PO Q8H PRN (Reason: Pain, Mild) 0RF triamcinolone acetonide 0.025 % cream 1 appl topical BID 0RF mirtazapine 15 mg tablet 1 tab PO BEDTIME 0RF sevelamer carbonate 800 mg tablet 1 tab PO TID 0RF olanzapine 10 mg tablet 10 mg PO BEDTIME 0RF amlodipine 10 mg Tablet 10 mg PO BEDTIME Qty: 30 0RF Protocol: Hold for SBP< HOLD for SBP < : 90 Rx Instructions: replaces prior dose of 5 mg daily hydralazine 100 mg tablet 100 mg PO TID Qty: 90 0RF Rx Instructions: replaces prior dose of 25 mg tid bumetanide 2 mg Tablet 2 mg PO DAILY 0RF pantoprazole 40 mg Tablet,Delayed Release (Dr/Ec) 40 mg PO DAILY 0RF melatonin 5 mg Tablet 5 mg PO BEDTIME PRN (Reason: Sleep) 0RF WING COVERER-Sharifa Rx 1-60-300 mg-mg-mcg Tablet 1 tab PO DAILY 0RF Flovent HFA 110 mcg/actuation Hfa Aerosol Inhaler 1 puff INHALATION BID 0RF Lantus U-100 Insulin 100 unit/mL Solution 14 unit subcut DAILY Qty: 3 0RF Rx Instructions: replaces prior dose of 24 units daily sennosides [senna] 8.6 mg tablet 1 - 2 tab PO BEDTIME PRN (Reason: constipation) 0RF sodium citrate 4 % (3 mL) Syringe 6 ml INTRA-CATHETER MOWEFR 0RF Retacrit 10,000 unit/mL Solution 10,000 unit SUBCUT WE 0RF nicotine 21 mg/24 hr patch 24 hour 1 patch topical DAILY 0RF Discharge Orders: Discharge Order (Routine); Ordered 06/19/21 Ordered By: Pankaj Calzada Diet: advance to usual diet Activity on Discharge: As tolerated Stand Alone Forms: Patient Portal Discharge page Care Plan Goals: Patient was admitted for hypertensive urgency, hyperkalemia due to missing hemodialysis.? Patient's symptoms improved with hemodialysis, blood pressure seems to be improving after HD .? Patient is feeling much better is requesting to be discharged home.? 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 Health Concerns: as above. Plan of Treatment: as above. Assessment: as above. Discharge Date/Time: 06/19/21 15:18
--- NOTE | 2021-06-19 15:04 | MHC.CM.PN ---
PT IS BEING DISCHARGED TODAY. AMARJIT CALLED PTS GENERAL 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, KATE [phone], WHO REPORTED HE WAS AWARE AND A FAMILY MEMBER WAS COMING TO GET THE PT HE REPORTED THE PT HAS NURSES THAT COME TO THE HOME HOWEVER HE DOES NOT KNOW THE AGENCY AMARJIT CALLED [facility] AND SPOKE TO WEB MARKETING INTERN QAMAR NURSE, ELAINE. SHE REPORTS THE PT IS ACTIVE WITH [facility] AND [facility] FOR GENERAL 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 SERVICES BUT DOES NOT APPEAR TO HAVE [facility] AT THIS TIME SHE IS AWARE THE PT WILL DC HOME TODAY AND [facility]SCAR WILL FOLLOW UP WITH HER IN THE COMMUNITY
== END 2021-06-19 15:18 | disposition home health service (06) ==
LOC: HO.ED 19:39 → HO.EDOVER 20:19
PROVIDERS: Admitting Provider Internal Medicine; Emergency Provider Emergency Medicine Emergency Medical Services; Visit Provider Internal Medicine
DX: E87.5 Hyperkalemia (principal); I16.9 Hypertensive crisis, unspecified; I16.0 Hypertensive urgency; E11.22 Type 2 diabetes mellitus with diabetic chronic kidney disease; I13.2 Hypertensive heart and chronic kidney disease with heart failure and with stage 5 chronic kidney disease, or end stage renal disease; N18.6 End stage renal disease; N17.9 Acute kidney failure, unspecified; I50.30 Unspecified diastolic (congestive) heart failure; D63.1 Anemia in chronic kidney disease; J44.9 Chronic obstructive pulmonary disease, unspecified; F17.210 Nicotine dependence, cigarettes, uncomplicated; F11.20 Opioid dependence, uncomplicated; Z20.822 Contact with and (suspected) exposure to COVID-19; Z99.2 Dependence on renal dialysis; Z91.15 Patient's noncompliance with renal dialysis; Z79.4 Long term (current) use of insulin; Z79.82 Long term (current) use of aspirin; Z79.899 Other long term (current) drug therapy
CPT/HCPCS: 36415; 71045; 71046; 80048; 80053; 82947; 83880; 85025; 87635; 90999; 96361; 96372; 96374; 96375; 96376; 99218; 99284; 99285; J2405

== ENCOUNTER 2021-07-27 11:07 | Inpatient (IN) | payer OTHER, SELFPAY ==
[2021-07-27] VITALS (15 sets, daily range): BP systolic 132–196; BP diastolic 61–89; PULSE 58–104; RESP 16–29; TEMP 36.4–37.9; O2SAT 89–99; BMI 30.8; BMI 31.0
--- NOTE | ~2021-07-27 | XR_ITS ---
EXAMINATION: XR CHEST CLINICAL INFORMATION: Shortness of breath. Missed dialysis. COMPARISON: Previous chest x-ray May 2021 TECHNIQUE: Frontal view of the chest was obtained. FINDINGS: The cardiac silhouette is enlarged. There is a right jugular dialysis catheter with tip projecting over the cavoatrial junction. There is pulmonary venous redistribution. The lungs are otherwise clear. There is no pleural effusion. There are degenerative changes of the spine. XR/XR chest 1V IMPRESSION: Enlarged cardiac silhouette and pulmonary venous redistribution.
--- NOTE | 2021-07-27 11:19 | ECG_ITS ---
Test Reason : shortness of breath/ nausea Blood Pressure : / mmHG Vent. Rate : 062 BPM Atrial Rate : 000 BPM P-R Int : 000 ms QRS Dur : 108 ms QT Int : 430 ms P-R-T Axes : 000 -44 055 degrees QTc Int : 436 ms Atrial fibrillation Left axis deviation Minimal voltage criteria for LVH, may be normal variant ( [place] product ) Abnormal ECG When compared with ECG of 10-JUN-2021 03:46, Atrial fibrillation has replaced Sinus rhythm Referred By: Sonja Alex Electronically Signed By:CRISTIAN REMY MD
--- NOTE | 2021-07-27 11:20 | ED_ITS ---
HPI - General Adult General Chief complaint: Dyspnea Stated complaint: DIFF BREATHING W/NAUSEA SINCE T-1 Time Seen by Provider: 07/27/21 11:12 Source: patient and EMS Mode of arrival: EMS Limitations: no limitations History of Present Illness HPI narrative: Patient comes to the emergency room complaining of shortness of breath. Patient is a dialysis patient, states that she did not get dialysis since 4 days ago. Patient was supposed to get dialysis yesterday but her right did not show up to pick her up. Patient denies chest pain, complaining of shortness of breath. Also complaining of lower extremity edema, nausea Related Data Home Medications Medication Instructions Recorded Confirmed aspirin 81 mg tablet,delayed 81 mg PO DAILY 10/22/20 06/18/21 release buprenorphine 8 mg-naloxone 2 mg 1 strip SUBLINGUAL BID 10/22/20 06/18/21 sublingual film (Suboxone) clonidine HCl 0.1 mg tablet 0.1 mg PO TID 10/22/20 06/18/21 diltiazem HCl 180 mg 180 mg PO DAILY 10/22/20 06/18/21 capsule,extended release 24 hr insulin lispro 100 unit/mL See Protocol SUBCUT TIDAC 10/22/20 06/18/21 subcutaneous pen (Humalog KwikPen (U-100) Insulin) tiotropium bromide 18 mcg capsule 1 cap INHALATION DAILY 10/22/20 06/18/21 with inhalation device (Spiriva with HandiHaler) trazodone 100 mg tablet 1 - 2 tab PO BEDTIME 10/22/20 06/18/21 olanzapine 10 mg tablet 10 mg PO BEDTIME 02/25/21 06/18/21 bumetanide 2 mg tablet 2 mg PO DAILY 04/15/21 06/18/21 fluticasone propionate 110 1 puff INHALATION BID 04/15/21 06/18/21 mcg/actuation HFA aerosol inhaler (Flovent HFA) melatonin 5 mg tablet 5 mg PO BEDTIME PRN 04/15/21 06/18/21 pantoprazole 40 mg tablet,delayed 40 mg PO DAILY 04/15/21 06/18/21 release vitamin B comp no.3-folic acid 1 1 tab PO DAILY 04/15/21 06/18/21 mg-vit C 60 mg-biotin 300 mcg tablet (CORPORATE TAX PREPARER-Sharifa Rx) epoetin kateryna-epbx 10,000 unit/mL 10,000 unit SUBCUT WE 05/11/21 06/18/21 injection solution (Retacrit) sennosides 8.6 mg tablet (senna) 1 - 2 tab PO BEDTIME PRN 05/11/21 06/18/21 sodium citrate 4 % (3 mL) 6 ml INTRA-CATHETER MOWEFR 05/11/21 06/18/21 intra-catheter injection syringe acetaminophen 500 mg tablet 500 mg PO Q8H PRN 06/10/21 06/18/21 mirtazapine 15 mg tablet 1 tab PO BEDTIME 06/10/21 06/18/21 sevelamer carbonate 800 mg tablet 1 tab PO TID 06/10/21 06/18/21 triamcinolone acetonide 0.025 % 1 appl TOPICAL BID 06/10/21 06/18/21 topical cream nicotine 21 mg/24 hr daily 1 patch TOPICAL DAILY 06/18/21 06/18/21 transdermal patch Previous Rx's Medication Instructions Recorded amlodipine 10 mg tablet 10 mg PO BEDTIME #30 tab 03/07/21 hydralazine 100 mg tablet 100 mg PO TID #90 tab 03/07/21 insulin glargine 100 unit/mL 14 unit (0.14 mL) SUBCUT DAILY #3 04/19/21 subcutaneous solution (Lantus ml U-100 Insulin) Allergies Allergy/AdvReac Type Severity Reaction Status Date / Time No Known Allergies Allergy Mild NOT Verified 12/14/20 11:50 APPLICABLE Review of Systems Review of Systems: Constitutional : No Weight loss, No Fever, No Chills, No Night Sweats, No Fatigue, No Malaise ENT/Mouth : No Hearing loss, No Ear Pain, No Nasal Congestion, No Sinus Pain, No Hoarseness, No sore throat, No Rhinorrhea, No Swallowing Difficulty Eyes: No Eye Pain, No Swelling, No Redness, No Foreign Body, No Discharge, No Vision Changes Cardiovascular : No Chest Pain, no palpitations Respiratory : No cough, no wheezing, complaining of shortness of breath worse with exertion Gastrointestinal : Complaining of nausea, No Vomiting, No Diarrhea, No Constipation, No abdominal Pain, No Hematochezia, No Melena Genitourinary : no irregular bleeding, No Dysuria, No Urinary Frequency, No Hematuria, No Urinary Incontinence, No Urgency, No Flank Pain, No Urinary Flow Changes, No Hesitancy Musculoskeletal : Complaining of diffuse body aches Skin : No Skin Lesions, No rash Neuro : No Weakness, No Numbness, No Paresthesias, No Loss of Consciousness, No Dizziness, No Headache Psych : No Anxiety/Panic, No Depression, No SI/HI/AH/VH, No Social Issues, Heme/Lymph: No Bruising, No Bleeding,No Lymphadenopathy Endocrine : No Polyuria, No Polydipsia, No Temperature Intolerance [facility] Past Medical History Medical History Acute kidney injury superimposed on chronic kidney disease VANDANA (acute kidney injury) Anemia in chronic kidney disease CHF (congestive heart failure) Constipation Diabetes mellitus Diastolic congestive heart failure End-stage renal disease (ESRD) Essential hypertension HTN (hypertension) HTN (hypertension) Hypertension Non-compliance Normocytic anemia Surgical History No pertinent past surgical history Family History Family History Other Hypertension Social History Social History Household Members: None Housing: House Do you presently have visiting nurse or other home services: Yes Alcohol intake: unknown Patient Tobacco Use Status: Current everyday Tobacco user Tobacco use type: Cigarette Cigarette Packs Per Day: 1 Second Hand Smoke Exposure: No Substance Use Type: Heroin Advance Directives: No Advance Directives Information Provided: No Advance Directives Date on File: 04/20/21 service: No Current occupational status: disabled Physical Exam ED Vital Signs: Vital Signs - 24 hr 07/27/21 11:17 07/27/21 12:43 07/27/21 12:52 Temperature 98.1 F Pulse Rate 58 76 Respiratory Rate 24 H 29 H 29 H Blood Pressure 160/61 H Pulse Oximetry 89 L BMI result Body Mass Index 31.0 Const Other: Appearance: Alert. Oriented X3. Looks uncomfortable, ill-appearing Eyes: Pupils equal, round and reactive to light. ENT: Pharynx normal. Neck: Normal inspection. Neck supple. No lymph nodes noted. No crepitus CVS: Normal heart rate and rhythm. Pulses normal. Normal S1 and S2 Respiratory: Tachypneic, respiratory rate approximately 30, oxygen saturation 90% on room air, Breath sounds normal. No Wheezing. No rales Abdomen: Soft and nontender. No rigidity. No distention. Skin: Skin warm and dry. Normal skin color. Normal skin turgor. Extremities: Bilateral lower extremity edema +2 Neuro: Oriented X 3. No motor deficit. No sensory deficit. Moving all extermities. No slurred speech. Course Course Course Narrative: Patient missed dialysis yesterday. She is ill-appearing. EKG shows peaked T- waves. Did not have any labs yet. Patient will be empirically treated for hyperkalemia. Patient given 2 doses of D50, 10 units of insulin, sodium bicarb, albuterol, calcium gluconate Patient started feeling short of breath, despite being on 2 L of oxygen. Oxygen saturation was 96%. Chest x-ray does show pulmonary edema. Patient was started on BiPAP. Blood pressure 160/61 Nephrology has been consulted. Patient needs emergent dialysis. Pending call back Dr. Li is at bedside, pt being admitted to the ICU. Medical Decision Making Lab Data Result diagrams: 07/27/21 11:55 07/27/21 11:55 Labs: Lab Results 07/27/21 07/27/21 07/27/21 Range/Units 11:55 11:55 11:55 WBC 15.2 H (4.8-10.8) X10*3/uL RBC 3.33 L (4.20-5.50) X10*6/uL Hgb 9.8 L (12.0-16.0) g/dl Hct 30.4 L (37.0-47.0) % MCV 91.3 (80.0-98.0) fL MCH 29.4 (27.0-33.0) pg MCHC 32.2 (31.0-35.0) g/dl RDW 17.0 H (11.0-16.0) % Plt Count 265 D (160-400) X10*3/uL MPV 10.0 (9.4-12.3) fL Immature Gran % (Auto) 0.5 H (0.0-0.4) % Neut % (Auto) 91.3 H (45-73) % Lymph % (Auto) 5.3 L (20-40) % Bell % (Auto) 2.7 (2-11) % Eos % (Auto) 0.1 (0-4) % Baso % (Auto) 0.1 (0-2) % Lymph # (Auto) 0.8 L (1.2-4.9) X10*3/uL Bell # (Auto) 0.4 (0.1-1.2) X10*3/uL Eos # (Auto) 0.0 (0.0-0.4) X10*3/uL Baso # (Auto) 0.0 (0.0-0.2) X10*3/uL Abs Immat Gran (auto) 0.08 H (0.00-0.03) X10*3/uL Absolute Neuts (auto) 13.7 H (2.0-8.3) x10*3/uL Absolute Nucleated RBC 0.000 (0.0-0.012) X10*3/uL Nucleated RBC % (auto) 0.0 (0.0-0.2) /100WBC Smear Tech's Comments VERIFIED PT (9.9-13.0) SEC INR (0.9-1.1) Sodium 126 L (135-145) mmol/L Potassium 7.9 H* D (3.3-5.1) mmol/L Chloride 89 L (96-108) mmol/L Carbon Dioxide 19 L (22-29) mmol/L Anion Gap 26 H (12-20) BUN 46 H (9-16) mg/dL Creatinine 12.59 H* (0.5-1.4) mg/dL Estim Creat Clear Calc 4.3 Estimated GFR 3 Random Glucose 132 H (60-115) mg/dL Calcium 9.2 D (8.4-10.2) mg/dL Magnesium 2.8 H (1.6-2.6) mg/dL Total Bilirubin 0.5 (0.0-1.0) mg/dL Direct Bilirubin 0.2 (0.0-0.5) mg/dL AST 29 (5-31) U/L ALT 11 (0-31) U/L Alkaline Phosphatase 161 H D (39-117) U/L Troponin I High Sens (<3.5-17.0) ng/L B-Natriuretic Peptide (<100) pg/mL Total Protein 7.3 (6.5-8.0) g/dL Albumin 4.1 (3.5-5.0) g/dL COVID-19 (KRYSTINA) Negative (Negative) COVID-19 Clin Com See Note 07/27/21 07/27/21 Range/Units 11:55 11:55 WBC (4.8-10.8) X10*3/uL RBC (4.20-5.50) X10*6/uL Hgb (12.0-16.0) g/dl Hct (37.0-47.0) % MCV (80.0-98.0) fL MCH (27.0-33.0) pg MCHC (31.0-35.0) g/dl RDW (11.0-16.0) % Plt Count (160-400) X10*3/uL MPV (9.4-12.3) fL Immature Gran % (Auto) (0.0-0.4) % Neut % (Auto) (45-73) % Lymph % (Auto) (20-40) % Bell % (Auto) (2-11) % Eos % (Auto) (0-4) % Baso % (Auto) (0-2) % Lymph # (Auto) (1.2-4.9) X10*3/uL Bell # (Auto) (0.1-1.2) X10*3/uL Eos # (Auto) (0.0-0.4) X10*3/uL Baso # (Auto) (0.0-0.2) X10*3/uL Abs Immat Gran (auto) (0.00-0.03) X10*3/uL Absolute Neuts (auto) (2.0-8.3) x10*3/uL Absolute Nucleated RBC (0.0-0.012) X10*3/uL Nucleated RBC % (auto) (0.0-0.2) /100WBC Smear Tech's Comments PT 11.6 (9.9-13.0) SEC INR 1.0 (0.9-1.1) Sodium (135-145) mmol/L Potassium (3.3-5.1) mmol/L Chloride (96-108) mmol/L Carbon Dioxide (22-29) mmol/L Anion Gap (12-20) BUN (9-16) mg/dL Creatinine (0.5-1.4) mg/dL Estim Creat Clear Calc Estimated GFR Random Glucose (60-115) mg/dL Calcium (8.4-10.2) mg/dL Magnesium (1.6-2.6) mg/dL Total Bilirubin (0.0-1.0) mg/dL Direct Bilirubin (0.0-0.5) mg/dL AST (5-31) U/L ALT (0-31) U/L Alkaline Phosphatase (39-117) U/L Troponin I High Sens 32.3 H D (<3.5-17.0) ng/L B-Natriuretic Peptide 3135 H (<100) pg/mL Total Protein (6.5-8.0) g/dL Albumin (3.5-5.0) g/dL COVID-19 (KRYSTINA) (Negative) COVID-19 Clin Com Critical Care Time Critical Care Time Critical Care Time: Yes Total Critical Care Time: 50 Attestation: 50 mins were spent in direct patient care, consults and stabilization Discharge Plan Discharge Clinical Impression: Acute hyperkalemia, ESRD (end stage renal disease) on dialysis Patient Disposition: Admitted As Inpatient Prescriptions: No Action trazodone 100 mg tablet 1 - 2 tab PO BEDTIME 0RF buprenorphine-naloxone [Suboxone] 8-2 mg film 1 strip sublingual BID 0RF clonidine HCl 0.1 mg tablet 0.1 mg PO TID 0RF diltiazem HCl 180 mg capsule,extended release 24hr 180 mg PO DAILY 0RF aspirin 81 mg tablet,delayed release (DR/EC) 81 mg PO DAILY 0RF insulin lispro [Humalog KwikPen Insulin] 100 unit/mL insulin pen See Protocol unit subcut TIDAC 0RF Protocol: Insulin Correction Scale Less than or equal to 110 ---- Give (units): 0 111 to 150 Give (units): 0 151 to 200 Give (units): 2 201 to 250 Give (units): 4 251 to 300 Give (units): 6 301 to 350 Give (units): 8 Greater than 350 Give (units): 10 Call MD if Blood Glucose > : 350 Spiriva with HandiHaler 18 mcg capsule, w/inhalation device 1 cap inhalation DAILY 0RF acetaminophen 500 mg Tablet 500 mg PO Q8H PRN (Reason: Pain, Mild) 0RF triamcinolone acetonide 0.025 % cream 1 appl topical BID 0RF mirtazapine 15 mg tablet 1 tab PO BEDTIME 0RF sevelamer carbonate 800 mg tablet 1 tab PO TID 0RF olanzapine 10 mg tablet 10 mg PO BEDTIME 0RF amlodipine 10 mg Tablet 10 mg PO BEDTIME Qty: 30 0RF Protocol: Hold for SBP< HOLD for SBP < : 90 Rx Instructions: replaces prior dose of 5 mg daily hydralazine 100 mg tablet 100 mg PO TID Qty: 90 0RF Rx Instructions: replaces prior dose of 25 mg tid bumetanide 2 mg Tablet 2 mg PO DAILY 0RF pantoprazole 40 mg Tablet,Delayed Release (Dr/Ec) 40 mg PO DAILY 0RF melatonin 5 mg Tablet 5 mg PO BEDTIME PRN (Reason: Sleep) 0RF CORPORATE TAX PREPARER-Sharifa Rx 1-60-300 mg-mg-mcg Tablet 1 tab PO DAILY 0RF Flovent HFA 110 mcg/actuation Hfa Aerosol Inhaler 1 puff INHALATION BID 0RF Lantus U-100 Insulin 100 unit/mL Solution 14 unit subcut DAILY Qty: 3 0RF Rx Instructions: replaces prior dose of 24 units daily sennosides [senna] 8.6 mg tablet 1 - 2 tab PO BEDTIME PRN (Reason: constipation) 0RF sodium citrate 4 % (3 mL) Syringe 6 ml INTRA-CATHETER MOWEFR 0RF Retacrit 10,000 unit/mL Solution 10,000 unit SUBCUT WE 0RF nicotine 21 mg/24 hr patch 24 hour 1 patch topical DAILY 0RF
[2021-07-27] MEDS: ondansetron HCL 4 MG/2 ML VIAL IVPUSH (11:49)
[2021-07-27] MEDS: Calcium Gluconate/NaCl,Iso-Osm 2 GM/100 ML PLAST..BAG IV (11:49)
[2021-07-27] MEDS: Sodium Bicarbonate 8.4% 50 MEQ/50 ML SYRINGE IVPUSH (11:49)
[2021-07-27] MEDS: Insulin Regular, Human 100 UNIT/ML 3 ML VIAL 10 UNIT IVPUSH (11:50)
--- NOTE | 2021-07-27 12:03 | ECG_ITS ---
Test Reason : cp Blood Pressure : / mmHG Vent. Rate : 071 BPM Atrial Rate : 071 BPM P-R Int : 206 ms QRS Dur : 110 ms QT Int : 424 ms P-R-T Axes : 073 -48 053 degrees QTc Int : 460 ms Normal sinus rhythm Left anterior fascicular block Minimal voltage criteria for LVH, may be normal variant ( [place] product ) Abnormal ECG When compared with ECG of 27-JUL-2021 11:18, Sinus rhythm has replaced Atrial fibrillation Referred By: Sonja Alex Electronically Signed By:CRISTIAN REMY MD
[2021-07-27 12:05] LABS: Basophils Percent Auto 0.1 % (0-2); Eosinophils Percent Auto 0.1 % (0-4); Hematocrit 30.4 % (37.0-47.0); Hemoglobin 9.8 g/dl (12.0-16.0); Imm Gran Abs Auto 0.08 X10*3/uL (0.00-0.03); Imm Gran Pct Auto 0.5 % (0.0-0.4); Lymphocytes Absolute Auto 0.8 X10*3/uL (1.2-4.9); Lymphocytes Percent Auto 5.3 % (20-40); MANUAL DIFF FLAG SCAN; Mean Corpuscular HGB Conc 32.2 g/dl (31.0-35.0); Mean Corpuscular Hemoglobin 29.4 pg (27.0-33.0); Mean Corpuscular Volume 91.3 fL (80.0-98.0); Monocytes Absolute Auto 0.4 X10*3/uL (0.1-1.2); Monocytes Percent Auto 2.7 % (2-11); Neutrophils Absolute Auto 13.7 x10*3/uL (2.0-8.3); Neutrophils Percent Auto 91.3 % (45-73); PLT CLUMP 1; Red Blood Count 3.33 X10*6/uL (4.20-5.50); SCAN SMEAR FLAG 1; White Blood Count 15.2 X10*3/uL (4.8-10.8)
--- NOTE | 2021-07-27 12:05 | PC.NURSE ---
second ekg at bedside d/t pt reporting cp with inspiration. pt also reports anxiety. md to bedside. ativan order to follow. pt o2 @4l nc sat 96%. medicated per emar.
[2021-07-27 12:06] LABS: Prothrombin Time 11.6 SEC (9.9-13.0)
[2021-07-27 12:15] LABS: COVID-19 Test Negative (Negative); IDNOW Serial# 16C4AD1C
[2021-07-27] MEDS: LORazepam 0.5 MG TABLET PO (12:17)
[2021-07-27 12:27] LABS: Alanine Aminotransferase 11 U/L (0-31); Albumin Level 4.1 g/dL (3.5-5.0); Alkaline Phosphatase 161 U/L (39-117); Aspartate Amino Transferase 29 U/L (5-31); Bilirubin Direct 0.2 mg/dL (0.0-0.5); Bilirubin Total 0.5 mg/dL (0.0-1.0); Calcium 9.2 mg/dL (8.4-10.2); Glucose Random 132 mg/dL (60-115); Magnesium 2.8 mg/dL (1.6-2.6); Total Protein 7.3 g/dL (6.5-8.0)
[2021-07-27 12:31] LABS: Platelet Count 265 X10*3/uL (160-400); SLIDE REVIEW VERIFIED
[2021-07-27 12:35] LABS: Anion Gap 26 (12-20); Blood Urea Nitrogen 46 mg/dL (9-16); Carbon Dioxide 19 mmol/L (22-29); Chloride 89 mmol/L (96-108); Creatinine Clr Calc Pharmacy 4.3; Estimated Glomerular Filt Rate 3; Potassium 7.9 mmol/L (3.3-5.1); Sodium 126 mmol/L (135-145)
[2021-07-27 12:37] LABS: Troponin-I High Sensitivity 32.3 ng/L (<3.5-17.0)
[2021-07-27] MEDS: Albuterol Sulfate (0.083%) 2.5 MG/3 ML VIAL.NEB 10 MG INHALE (12:49)
--- NOTE | 2021-07-27 13:00 | ECG_ITS ---
Test Reason : chest pain Blood Pressure : / mmHG Vent. Rate : 075 BPM Atrial Rate : 075 BPM P-R Int : 210 ms QRS Dur : 100 ms QT Int : 400 ms P-R-T Axes : 068 -47 047 degrees QTc Int : 446 ms Sinus rhythm with 1st degree A-V block Left anterior fascicular block Minimal voltage criteria for LVH, may be normal variant ( Jona product ) Abnormal ECG When compared with ECG of 27-JUL-2021 12:00, No significant change was found Referred By: Sonja Alex Electronically Signed By:CRISTIAN REMY MD
[2021-07-27] MEDS: Nitroglycerin 2 % Oint 1 GM Packet 1 INCH TRANSDERMA (13:17)
[2021-07-27] MEDS: Furosemide 40 MG/4 ML VIAL IVPUSH (13:20)
[2021-07-27 13:30] LABS: B Type Natriuretic Peptide 3026 pg/mL (<100)
--- NOTE | 2021-07-27 14:08 | PHA.MEDREC ---
Pharmacy Consult ? Medication Reconciliation Pharmacy has completed the medication reconciliation.Patient unable to reports medications. Patient no longer a client for [facility]. Son has no idea about patient medications. Contact [facility] pharamcy for and updated list of medications. Jill Cohn, PharmD
[2021-07-27] MEDS: Calcium Gluconate/NaCl,Iso-Osm 1 GM/50 ML PLAST..BAG IV (14:15)
--- NOTE | 2021-07-27 14:28 | PM.CCHP ---
History of Present Illness Date of Service: 07/27/21 Attending physician on admission: Gaurang Li Chief Complaint: Pulmon edema, resp distress, severe hyperkalemia 2? dialysis noncompliance Mrs. Muller was admitted to ICU with pulmon edema, resp distress, and severe hyperkalemia secondary to ESRD 2? dialysis noncompliance. The patient is a 66 yo woman with ESRD, freq noncompliant with HD, [place] comes to [facility] for one day admission.? Past medical history also includes hypertension, diabetes, congestive heart failure, anemia.? Also a current everyday tobacco user, with history of heroin abuse. The patient presented to the ED this morning complaining of shortness of breath.? Has not had dialysis in 4 days. In the ED, was ill-appearing and in mild respiratory distress.? Blood pressure 160/61, respiratory rate 30, sat 90% on room air, with bilateral lower extremity edema. Labs in the ED notable for white count of 15, hemoglobin 9.8, sodium 126, BUN/creatinine 46/12.5, bicarb 19, potassium 7.9, BNP 3026.? Chest x-ray showed mild pulmonary edema.? EKG showed peaked T-waves. The patient was immediately treated for hyperkalemia and put on BiPAP.? I saw her in the ED and wrote for admission to the ICU.? She arrived in the ICU about 14:00 and was immediately started on dialysis.? Her T-wave elevation disappeared immediately. On my exam, she is fully A&O via patient services manager.? Mild resp distress on room air and on 2L NC.? RR low 20s on 2L NC, with Sat 97%.? HR 85, SR.? BP 168/76.? Temp 97.6?.? No JVD at 30-40?.? Chest shows mild exp wheeze, with minimally prolonged expiratory phase heart rate and rhythm are regular, with normal-sounding S1 and S2, with no murmur or gallops.? The abdomen is rotund about the size of a soccer ball; suspect this might be ascites.? Otherwise benign.? She has about 1+ pitting edema bilaterally.? Neuro grossly intact. LABORATORY DATA:? As noted above. IMPRESSION: 1. Accelerated hypertension 2. diabetes 3. ESRD, noncompliant with hemodialysis. 4. Symptomatic hyperkalemia with peaked T-waves. 5. Acute pulmonary edema.? No doubt her accelerated hypertension is a contributing factor. Within minutes of going on dialysis, her peak T-waves resolved and her breathing got easier and her resp distress resolved..? I anticipate that she will complete the dialysis session and then she can be transferred to a regular room. The dialysis nurse will draw a BMP from the dialysis circuit right at the end of today?s dialysis to check the potassium. Critical care time:? 60+ min. [facility] Past Medical History Medical History Acute kidney injury superimposed on chronic kidney disease VANDANA (acute kidney injury) Anemia in chronic kidney disease CHF (congestive heart failure) Constipation Diabetes mellitus Diastolic congestive heart failure End-stage renal disease (ESRD) Essential hypertension HTN (hypertension) HTN (hypertension) Hypertension Non-compliance Normocytic anemia Family History Family History Other Hypertension Surgical History Surgical History No pertinent past surgical history Social History Social History Household Members: None Housing: Assisted Living Facility Do you presently have visiting nurse or other home services: Yes (visiting nurse/TRUST EVALUATION SUPERVISOR) Alcohol intake: unknown Patient Tobacco Use Status: Current everyday Tobacco user Tobacco use type: Cigarette Cigarette Packs Per Day: 1 Cigarettes Per Day: 5 Years Smoked: 18 Smoked in Last 30 Days: Yes e-Cigarette/Vaping Use: Never Used Frequency of e-Cigarette/Vaping Use: daily Patient Interested in Nicotine Replacement: Yes Second Hand Smoke Exposure: No Use of substances other than those prescribed or required for medical reasons: No Substance Use Type: Heroin Have you been hit, kicked, punched, or otherwise hurt by someone within the past year? If so, by whom?: No Do you feel safe in your current relationship?: No Current Relationship Is there a partner from a previous relationship who is making you feel unsafe now?: No Are you made to feel afraid or neglected: No Advance Directives: No Advance Directives Information Provided: No Advance Directives Date on File: 04/20/21 Do you have thoughts of harming others: None Do you have a plan to hurt others: No Plan Recently lost weight without trying: No Eating poorly because of decreased appetite: No Nutrition Risks: No Nutritional Risk Patient : No : No Poor oral hygiene: No service: No Current occupational status: disabled Meds Allergies Allergy/AdvReac Type Severity Reaction Status Date / Time No Known Allergies Allergy Mild NOT Verified 12/14/20 11:50 APPLICABLE Home Medications Medication Instructions Recorded Confirmed Last Taken Type aspirin 81 mg tablet,delayed 81 mg PO DAILY 10/22/20 07/27/21 Unknown History release buprenorphine 8 mg-naloxone 2 mg 1 strip SUBLINGUAL BID 10/22/20 07/27/21 Unknown History sublingual film (Suboxone) diltiazem HCl 180 mg 360 mg PO DAILY 10/22/20 07/27/21 Unknown History capsule,extended release 24 hr tiotropium bromide 18 mcg capsule 1 cap INHALATION DAILY 10/22/20 07/27/21 Unknown History with inhalation device (Spiriva with HandiHaler) olanzapine 10 mg tablet 10 mg PO BEDTIME 02/25/21 07/27/21 Unknown History bumetanide 2 mg tablet 2 mg PO DAILY 04/15/21 07/27/21 Unknown History fluticasone propionate 110 1 puff INHALATION BID 04/15/21 07/27/21 Unknown History mcg/actuation HFA aerosol inhaler (Flovent HFA) melatonin 5 mg tablet 5 mg PO BEDTIME PRN 04/15/21 07/27/21 Unknown History pantoprazole 40 mg tablet,delayed 40 mg PO DAILY 04/15/21 07/27/21 Unknown History release vitamin B comp no.3-folic acid 1 1 tab PO DAILY 04/15/21 07/27/21 Unknown History mg-vit C 60 mg-biotin 300 mcg tablet (PHYSICIAN SUPPORT COORDINATOR-[facility]) epoetin kateryna-epbx 10,000 unit/mL 10,000 unit SUBCUT WE 05/11/21 06/18/21 Unknown History injection solution (Retacrit) sennosides 8.6 mg tablet (senna) 1 - 2 tab PO BEDTIME PRN 05/11/21 07/27/21 Unknown History sodium citrate 4 % (3 mL) 6 ml INTRA-CATHETER MOWEFR 05/11/21 06/18/21 Unknown History intra-catheter injection syringe acetaminophen 500 mg tablet 500 mg PO Q8H PRN 06/10/21 07/27/21 Unknown History sevelamer carbonate 800 mg tablet 1 tab PO TID 06/10/21 07/27/21 Unknown History triamcinolone acetonide 0.025 % 1 appl TOPICAL BID 06/10/21 07/27/21 Unknown History topical cream nicotine 21 mg/24 hr daily 1 patch TOPICAL DAILY 06/18/21 07/27/21 Unknown History transdermal patch clonidine HCl 0.2 mg tablet 0.2 mg PO BID 07/27/21 07/27/21 Unknown History hydralazine 50 mg tablet 1 tab PO TID 07/27/21 07/27/21 Unknown History insulin aspart U-100 100 unit/mL 1 sliding scale dose SUBCUT 07/27/21 07/27/21 Unknown History subcutaneous cartridge (Novolog USEASDIRECTD PenFill U-100 Insulin aspart) Physical Exam Vital Signs: Vital Signs: Last Vital Signs Temp 97.6 F 07/27/21 14:00 Pulse 86 07/27/21 14:17 Resp 20 07/27/21 14:17 BP 168/76 H 07/27/21 14:17 Pulse Ox 97 07/27/21 14:00 BMI result Body Mass Index 31.0 Results Labs CBC and Chem 7: 07/27/21 11:55 07/27/21 14:15 Labs: Laboratory Results - last 24 hr 07/27/21 07/27/21 07/27/21 11:55 11:55 11:55 MCV 91.3 MCH 29.4 MCHC 32.2 RDW 17.0 H Plt Count 265 D MPV 10.0 Immature Gran % (Auto) 0.5 H Neut % (Auto) 91.3 H Lymph % (Auto) 5.3 L Wright % (Auto) 2.7 Eos % (Auto) 0.1 Baso % (Auto) 0.1 Lymph # (Auto) 0.8 L [place] # (Auto) 0.4 Eos # (Auto) 0.0 Baso # (Auto) 0.0 Abs Immat Gran (auto) 0.08 H Absolute Neuts (auto) 13.7 H Absolute Nucleated RBC 0.000 Nucleated RBC % (auto) 0.0 Smear Tech's Comments VERIFIED PT INR Anion Gap 26 H Estim Creat Clear Calc 4.3 Estimated GFR 3 Random Glucose 132 H Calcium 9.2 D Magnesium 2.8 H Total Bilirubin 0.5 Direct Bilirubin 0.2 AST 29 ALT 11 Alkaline Phosphatase 161 H D B-Natriuretic Peptide Total Protein 7.3 Albumin 4.1 COVID-19 (KRYSTINA) Negative COVID-19 Clin Com See Note 07/27/21 07/27/21 11:55 11:55 MCV MCH MCHC RDW Plt Count MPV Immature Gran % (Auto) Neut % (Auto) Lymph % (Auto) Wright % (Auto) Eos % (Auto) Baso % (Auto) Lymph # (Auto) Wright # (Auto) Eos # (Auto) Baso # (Auto) Abs Immat Gran (auto) Absolute Neuts (auto) Absolute Nucleated RBC Nucleated RBC % (auto) Smear Tech's Comments PT 11.6 INR 1.0 Anion Gap Estim Creat Clear Calc Estimated GFR Random Glucose Calcium Magnesium Total Bilirubin Direct Bilirubin AST ALT Alkaline Phosphatase B-Natriuretic Peptide 3026 H Total Protein Albumin COVID-19 (KRYSTINA) COVID-19 Clin Com Imaging Radiologist's Impressions: Impressions Chest X-Ray 07/27/21 11:45 IMPRESSION: Enlarged cardiac silhouette and pulmonary venous redistribution.
--- NOTE | 2021-07-27 14:44 | PC.ADMIT ---
PT ADMITTED TO ICU FROM ED FOR EMERGENCY DIALYSIS. PT COMES FROM [facility] PER PT REPORT WITH MULTIPLE SERVICES IN PLACE: VISITING NURSE/SALES SERVICE PROMOTER. PT ALERT AND ORIENTED X 3, ABLE TO FOLLOW COMMANDS, PUPILS EQUAL AND REACTIVE, PT REMAINS ON 2L NC WITH INTERMITTENT BIPAP WITH A NON-PRODUCTIVE COUGH. ABDOMEN EXTREMELY ROUND, DISTENDED, NON-TENDER, ASCITES. PT INCONTINENT OF URINE, PUREWICK IN PLACE. PT HAS MILD WEAKNESS AND WALKS WITH A WALKER AT BASELINE. PT HAS A DIALYSIS CATH TO THE RIGHT CHEST AND A 22G PERIPHERAL IV TO THE RIGHT ARM FOR ACCESS. CRITICAL POTASSIUM NOTED-PT CURRENTLY RECEIVING DIALYSIS. CONTINUE TO MONITOR.
[2021-07-27 14:45] LABS: Anion Gap 22 (12-20); Blood Urea Nitrogen 47 mg/dL (9-16); Calcium 9.7 mg/dL (8.4-10.2); Carbon Dioxide 23 mmol/L (22-29); Chloride 88 mmol/L (96-108); Creatinine Clr Calc Pharmacy 4.3; Estimated Glomerular Filt Rate 3; Glucose Random 208 mg/dL (60-115); Potassium 6.8 mmol/L (3.3-5.1); Sodium 126 mmol/L (135-145)
[2021-07-27] MEDS: Nicotine 21 MG PATCH.TD24 TRANSDERMA (17:56)
[2021-07-27 18:04] LABS: Anion Gap 19 (12-20); Blood Urea Nitrogen 14 mg/dL (9-16); Calcium 9.5 mg/dL (8.4-10.2); Carbon Dioxide 19 mmol/L (22-29); Chloride 98 mmol/L (96-108); Creatinine Clr Calc Pharmacy 11.6; Estimated Glomerular Filt Rate 9; Glucose Random 107 mg/dL (60-115); Potassium 3.7 mmol/L (3.3-5.1); Sodium 132 mmol/L (135-145)
[2021-07-28] VITALS: BP 140/67; PULSE 71; RESP 17; O2SAT 97
[2021-07-28 02:56] LABS: Glucose, Whole Blood 80 mg/dL (60-115)
[2021-07-28 03:33] LABS: Glucose, Whole Blood 104 mg/dL (60-115)
[2021-07-28 03:50] VITALS: BP 172/70; PULSE 85; RESP 17; O2SAT 98
[2021-07-28 05:11] VITALS: BMI 30.3
[2021-07-28 06:41] LABS: Glucose, Whole Blood 93 mg/dL (60-115)
[2021-07-28 08:00] VITALS: BP 127/73; PULSE 85; RESP 21; O2SAT 100
--- NOTE | 2021-07-28 09:03 | P.CDIC_ITS ---
CDI Concurrent Query Documentation Clarification: PHYSICIAN'S DOCUMENTATION REQUEST Date of Query: 07/28/21903 Patient Name: Cruz Muller Admit Date: 07/27/21 Dear Doctor, A review of the medical record indicates additional documentation may be needed. Please review below and update the documentation accordingly. Clinical Indicators: Risk Factors/Clinical Indicators/Treatments difficulty breathing respiratory rate 20 - 29 SAT 90% room air treated with oxygen 2L NC Per H&P: Acute pulmonary edema, respiratory distress Recognized standard criteria for respiratory failure includes: (Source: [facility] Hospitalist Mar 2013) ABGs (1 or more) Symptoms: ? PO2 <60 or RA SpO2 <91% ? Tachypnea, SOB, dyspnea ? PcO2 >50 and pH <7.35 ? Pallor or cyanosis ? pO2 decrease or pcO2 increase ? Anxiety or restlessness by 10 mm/Hg from baseline if known ? Use of accessory muscles ? Retractions (grunting in newborns) ? Unable to speak in complete sentences P/F ratio < 300 Supplemental O2 requirement of 40% or more Intubation is not required Clarify which of the following accurately represents the patient's respiratory status: * Acute respiratory failure * Acute respiratory distress * Other (please specify) * Unable to determine Please include type if known: * Hypoxic * Hypercapnic * Hypoxic and hypercapnic * Unable to determine Use of terms such as suspected, likely, concern for, or probable (associated with a specific diagnosis that is being evaluated, monitored, or treated as if it exists) are acceptable and can be coded in the inpatient setting, when documented at the time of discharge. Thank you, Khushboo Sanchez RN Extension: [phone] Please use your independent medical judgment in providing your response. THIS QUERY IS PART OF THE PERMANENT MEDICAL RECORD
--- NOTE | 2021-07-28 10:08 | MHC.CM.PN ---
Met with pt who was admitted with hyperkalemia in the setting of missed HD. Pt resides alone but has a BOX REPAIRER through [employer] named Chelly who assists her with ADL's transportation and any other need she has. Pt uses a walker on occassion. Pt attends HD on , , at [facility] in [place]. She states she takes a shuttle or Chelly brings her. PCP is Dr. Delarosa. Vax x3. D/C is for a return to home with existing supports and continued HD IMM and HCP in chart
[2021-07-28] MEDS: Nicotine 21 MG PATCH.TD24 TRANSDERMA (10:23)
--- NOTE | 2021-07-28 10:23 | P.PNNP_ITS ---
Subjective Subjective Date of Service: 07/28/21 Interval history: Seen and examined, overall feeling much better Physical Exam Vital Signs: Vital Signs: Last Vital Signs Temp 100.3 F 07/27/21 18:00 Pulse 85 07/28/21 08:00 Resp 21 H 07/28/21 08:00 BP 127/73 07/28/21 08:00 Pulse Ox 100 07/28/21 08:00 BMI result Body Mass Index 30.3 Chest: Chest palpation & inspection: normal inspection of the chest Resp: Effort & Inspection: normal respiratory effort Cardio: Jugular venous distension: no JVD Rhythm: regular rhythm Extrem: General: Yes no pedal edema Objective Data Labs CBC & Chem 7: 07/27/21 11:55 07/27/21 17:43 Labs: Laboratory Results - last 24 hr 07/27/21 07/27/21 07/27/21 11:55 11:55 11:55 WBC 15.2 H RBC 3.33 L Hgb 9.8 L Hct 30.4 L MCV 91.3 MCH 29.4 MCHC 32.2 RDW 17.0 H Plt Count 265 D MPV 10.0 Immature Gran % (Auto) 0.5 H Neut % (Auto) 91.3 H Lymph % (Auto) 5.3 L [place] % (Auto) 2.7 Eos % (Auto) 0.1 Baso % (Auto) 0.1 Lymph # (Auto) 0.8 L [place] # (Auto) 0.4 Eos # (Auto) 0.0 Baso # (Auto) 0.0 Abs Immat Gran (auto) 0.08 H Absolute Neuts (auto) 13.7 H Absolute Nucleated RBC 0.000 Nucleated RBC % (auto) 0.0 Smear Tech's Comments VERIFIED PT INR Sodium 126 L Potassium 7.9 H* D Chloride 89 L Carbon Dioxide 19 L Anion Gap 26 H BUN 46 H Creatinine 12.59 H* Estim Creat Clear Calc 4.3 Estimated GFR 3 POC Glucose Random Glucose 132 H Calcium 9.2 D Magnesium 2.8 H Total Bilirubin 0.5 Direct Bilirubin 0.2 AST 29 ALT 11 Alkaline Phosphatase 161 H D Troponin I High Sens B-Natriuretic Peptide Total Protein 7.3 Albumin 4.1 COVID-19 (KRYSTINA) Negative COVID-19 Clin Com See Note 07/27/21 07/27/21 07/27/21 11:55 11:55 14:15 WBC RBC Hgb Hct MCV MCH MCHC RDW Plt Count MPV Immature Gran % (Auto) Neut % (Auto) Lymph % (Auto) [place] % (Auto) Eos % (Auto) Baso % (Auto) Lymph # (Auto) [place] # (Auto) Eos # (Auto) Baso # (Auto) Abs Immat Gran (auto) Absolute Neuts (auto) Absolute Nucleated RBC Nucleated RBC % (auto) Smear Tech's Comments PT 11.6 INR 1.0 Sodium 126 L Potassium 6.8 H* Chloride 88 L Carbon Dioxide 23 Anion Gap 22 H BUN 47 H Creatinine 12.65 H* Estim Creat Clear Calc 4.3 Estimated GFR 3 POC Glucose Random Glucose 208 H Calcium 9.7 Magnesium Total Bilirubin Direct Bilirubin AST ALT Alkaline Phosphatase Troponin I High Sens 32.3 H D B-Natriuretic Peptide 3026 H Total Protein Albumin COVID-19 (KRYSTINA) [email or web address] 07/27/21 07/28/21 07/28/21 17:43 02:52 03:29 WBC RBC Hgb Hct MCV MCH MCHC RDW Plt Count MPV Immature Gran % (Auto) Neut % (Auto) Lymph % (Auto) [place] % (Auto) Eos % (Auto) Baso % (Auto) Lymph # (Auto) [place] # (Auto) Eos # (Auto) Baso # (Auto) Abs Immat Gran (auto) Absolute Neuts (auto) Absolute Nucleated RBC Nucleated RBC % (auto) Smear Tech's Comments PT INR Sodium 132 L Potassium 3.7 D Chloride 98 Carbon Dioxide 19 L Anion Gap 19 BUN 14 D Creatinine 4.65 H* Estim Creat Clear Calc 11.6 Estimated GFR 9 POC Glucose 80 104 Random Glucose 107 Calcium 9.5 Magnesium Total Bilirubin Direct Bilirubin AST ALT Alkaline Phosphatase Troponin I High Sens B-Natriuretic Peptide Total Protein Albumin COVID-19 (KRYSTINA) [email or web address] 07/28/21 06:37 WBC RBC Hgb Hct MCV MCH MCHC RDW Plt Count MPV Immature Gran % (Auto) Neut % (Auto) Lymph % (Auto) [place] % (Auto) Eos % (Auto) Baso % (Auto) Lymph # (Auto) [place] # (Auto) Eos # (Auto) Baso # (Auto) Abs Immat Gran (auto) Absolute Neuts (auto) Absolute Nucleated RBC Nucleated RBC % (auto) Smear Tech's Comments PT INR Sodium Potassium Chloride Carbon Dioxide Anion Gap BUN Creatinine Estim Creat Clear Calc Estimated GFR POC Glucose 93 Random Glucose Calcium Magnesium Total Bilirubin Direct Bilirubin AST ALT Alkaline Phosphatase Troponin I High Sens B-Natriuretic Peptide Total Protein Albumin COVID-19 (KRYSTINA) COVID-19 Clin Com Procedures Date of Service Date of Service: 07/28/21 Assessment & Plan Assessment and plan (1) ESRD (end stage renal disease) on dialysis: Status: Acute Plan 1. ESRD: normally TTS 2. CHF: resolved w HD yesterday 3. HyperK: resolved w HD 4. Non-complinace: major issue for why she gets readm REC: HD again today to get back on TTS schedule and then d/c afterwards Time Spent With Patient Time: Total time spent is greater than 50% in coordination of care (as documented) at patient's floor/unit and/or counseling patient:
--- NOTE | 2021-07-28 11:33 | CONS_ITS ---
DATE OF SERVICE: 07/28/2021 REASON FOR CONSULTATION: I was asked to see patient to assist in evaluation and management of patient's dialysis needs in the setting of not having gone to dialysis for the past week and presents to the hospital with shortness of breath and hyperkalemia. HISTORY OF PRESENT ILLNESS: In summary, she is a 66-year-old ESRD patient normally dialyzes Sunday, , Sunday, but misses lot of her treatment, came to the hospital after a week of not having had dialysis with increasing shortness of breath, noted to be hyperkalemic. The patient is frustrated about going to dialysis and misses a lot of treatments. In the emergency room, she was on BiPAP. I got some treatment for hyperkalemia. She denies any chest pain, fever, sweats or chills. PAST MEDICAL HISTORY: Notable for ESRD, dialysis Sunday, , Sunday, history of heart failure, diabetes, diastolic dysfunction, hypertension, noncompliance. MEDICATIONS: Her medications on admission are noted in the admitting notes. Current medications noted in the MAR. SOCIAL HISTORY: She is a cigarette smoker. Denies alcohol or illicit drug use. REVIEW OF SYSTEMS: As noted above. ALLERGIES: SHE HAS NO KNOWN DRUG ALLERGIES. PHYSICAL EXAMINATION: VITAL SIGNS: Blood pressure of 186/80 with a heart rate in the 70s. HEENT: Head is atraumatic and normocephalic. NECK: Supple. Mucous membranes are moist. LUNGS: Aroused at the bases. CARDIAC: Regular rate and rhythm. ABDOMEN: Soft. EXTREMITIES: Show no edema. LABORATORY DATA: Hemoglobin 9.8, hematocrit 30.4, white blood cell count 15.2, potassium of 7.9. IMPRESSION: End-stage renal disease; patient admitted with decompensated heart failure from volume overload and hyperkalemia in a dialysis patient, missed her dialysis for the past week. 1. End-stage renal disease. We will dialyze her today. 2. Hyperkalemia. She has some medical therapy and she will get emergent dialysis today. 3. Shortness of breath. Again due to hypovolemia, which should improve with dialysis. I reviewed with her the importance of being compliant with her dialysis treatments to try and avoid these episodes. SUGGESTIONS: At this time include dialysis today and then likely to again tomorrow to keep her on Sunday, , Sunday routine. Stressed the importance of compliance. We will follow with the team. MD BABAK White/GRACIE / [id number]
[2021-07-28 15:20] VITALS: BP 204/87; PULSE 97; RESP 14; TEMP 36.8; O2SAT 94
[2021-07-28] MEDS: ondansetron HCL 4 MG/2 ML VIAL IVPUSH (15:41)
[2021-07-28 16:18] LABS: Glucose, Whole Blood 90 mg/dL (60-115)
--- NOTE | 2021-07-28 16:19 | HO.PM.IMPN ---
Subjective Subjective Date of Service: 07/28/21 Interval History: Notes nausea with mild vomiting after dialysis. 3 kg removed. Did not get Suboxone or morning meds this a.m. Review of Systems Denies chest pain Denies shortness of breath Denies diarrhea; admits nausea and vomit Physical Exam Vital Signs: Vital Signs: Last Vital Signs Temp 98.3 F 07/28/21 15:20 Pulse 97 07/28/21 15:20 Resp 14 07/28/21 15:20 BP 204/87 H 07/28/21 15:20 Pulse Ox 94 07/28/21 15:20 BMI result Body Mass Index 30.3 Const: Other: Awake alert in no acute distress Resp: Other: Clear to auscultation bilaterally no rales rhonchi wheezes Cardio: Other: No S4; positive S1-S2; no S3 murmurs rubs or gallops GI: Other: Soft nontender nondistended normoactive bowel sounds x4 quadrants Extrem: Other: No edema bilaterally Objective Data Active Medications Amlodipine Besylate (Amlodipine Besylate 10 Mg Tablet) 10 mg PO BEDTIME PHAN; Protocol Aspirin (Aspirin Enteric Coated 81 Mg Tablet.) 81 mg PO DAILY PHAN Bumetanide (Bumetanide 1 Mg Tablet) 2 mg PO DAILY PHAN; Protocol Buprenorphine/Naloxone (Buprenorphine/Naloxone 8/2 Mg Film) 1 film SUBLINGUAL BID PHAN Clonidine HCl (Clonidine Hcl 0.2 Mg Tablet) 0.2 mg PO BID PHAN; Protocol Diltiazem HCl (Diltiazem Hcl Cd 180 Mg Cap.Er.24h) 360 mg PO DAILY PHAN; Protocol Hydralazine HCl (Hydralazine Hcl 50 Mg Tablet) 50 mg PO TID PHAN; Protocol Nicotine (Nicotine 21 Mg Patch.Td24) 21 mg TRANSDERMA DAILY [facility] Last Admin: 07/28/21 10:23 Dose: 21 mg Documented by: JESSICA Olanzapine (Olanzapine 10 Mg Tablet) 10 mg PO BEDTIME PHAN Omeprazole (Omeprazole 20 Mg Capsule.) 20 mg PO DAILY PHAN Sevelamer Carbonate (Sevelamer Carbonate Tablet 800 Mg Tablet) 800 mg PO TID [facility] Labs CBC & Chem 7: 07/27/21 11:55 07/27/21 17:43 Labs: Laboratory Results - last 24 hr 07/27/21 07/28/21 07/28/21 17:43 02:52 03:29 Anion Gap 19 Estim Creat Clear Calc 11.6 Estimated GFR 9 POC Glucose 80 104 Random Glucose 107 Calcium 9.5 07/28/21 07/28/21 06:37 16:03 Anion Gap Estim Creat Clear Calc Estimated GFR POC Glucose 93 90 Random Glucose Calcium Assessment and Plan (1) ESRD (end stage renal disease) on dialysis: Status: Acute Plan 66-year-old female with a 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 Noted to have peaked T-waves in ER; transferred to ICU and urgently dialyzed. Shortly after dialysis initiated shortness of breath improved and T-waves normal iced. She was discharged to the floor overnight receive dialysis again this a.m.. Given the early dialysis, she did not receive her Suboxone or antihypertensives. She currently is status post HD with removal of 30 kg and now is nauseous and hypertensive. 1. ESRD -restart antihypertensive and Suboxone. -Zofran for nausea -hopeful DC in a.m. -all previous issues resolved with SANFORIZING 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 Patient will remain in hospital overnight secondarily to poorly controlled blood pressure and fairly recalcitrant nausea. Hopeful DC in a.m. Quality Stroke Does the patient have a stroke diagnosis?: No VTE Prior VTE?: No VTE Risk Level:: Medical - low VTE Device Contraindication: Treatment Not Indicated VTE Drug Contraindication: Treatment Not Indicated
[2021-07-28] MEDS: Bumetanide 1 MG TABLET 2 MG PO (16:47)
[2021-07-28] MEDS: hydrALAZINE HCl 50 MG TABLET PO ×2 (16:48→19:59)
[2021-07-28] MEDS: Sevelamer Carbonate Tablet 800 MG TABLET PO ×2 (16:48→19:59)
[2021-07-28] MEDS: dilTIAZem HCL CD 180 MG CAP.ER.24H 360 MG PO (16:49)
[2021-07-28 19:58] VITALS: BP 210/89; PULSE 96; RESP 16; TEMP 37.2; O2SAT 97
[2021-07-28] MEDS: cloNIDine HCL 0.2 MG TABLET PO (19:59)
[2021-07-28] MEDS: amLODIPine Besylate 10 MG TABLET PO (19:59)
[2021-07-28] MEDS: Buprenorphine/Naloxone 8/2 mg FILM 1 FILM SUBLINGUAL (19:59)
[2021-07-28] MEDS: OLANZapine 10 MG TABLET PO (21:41)
[2021-07-28 23:59] VITALS: BP 155/71; PULSE 72; RESP 18; TEMP 36.6; O2SAT 98
[2021-07-29 03:27] VITALS: BP 159/77; PULSE 81; RESP 18; TEMP 36.8; O2SAT 97
[2021-07-29 06:00] VITALS: BMI 30.2
[2021-07-29 08:00] VITALS: BP 160/74; PULSE 68; RESP 20; TEMP 36.8; O2SAT 96
[2021-07-29] MEDS: Buprenorphine/Naloxone 8/2 mg FILM 1 FILM SUBLINGUAL (09:18)
[2021-07-29] MEDS: Aspirin Enteric Coated 81 MG TABLET.DR PO (09:19)
[2021-07-29] MEDS: hydrALAZINE HCl 50 MG TABLET PO (09:19)
[2021-07-29] MEDS: dilTIAZem HCL CD 180 MG CAP.ER.24H 360 MG PO (09:20)
[2021-07-29] MEDS: Omeprazole 20 MG CAPSULE.DR PO (09:20)
[2021-07-29] MEDS: cloNIDine HCL 0.2 MG TABLET PO (09:20)
[2021-07-29] MEDS: Bumetanide 1 MG TABLET 2 MG PO (09:21)
[2021-07-29] MEDS: Nicotine 21 MG PATCH.TD24 TRANSDERMA (09:21)
[2021-07-29] MEDS: Sevelamer Carbonate Tablet 800 MG TABLET PO (09:21)
--- NOTE | 2021-07-29 11:17 | PM.DS ---
DS: Providers Provider Date of Service: 07/29/21 Date of admission: 07/27/21 13:23 Date of discharge: 07/29/21 Primary care physician: Unknown Physician Consults: 07/27/21 15:44 Consult to Nephrology Stat Consulting Provider: Clive Lange Reason for consultation: Urgent dialysis needed DS: Diagnosis Discharge Diagnosis (1) ESRD (end stage renal disease) on dialysis: Status: Acute DS: Summary Hospital Course Hospital Course: 66-year-old female with known history of ESRD presents to the emergency room with increases shortness of breath and hyperkalemia; placed on BiPAP and admitted to ICU for urgent hemodialysis. In the ER, patient was noted to have peaked T-waves secondary to hypercalcemia. Once in ICU on hemodialysis, breathing improved dramatically and T-wave flattening to be normal. She completed dialysis with total improvement of her symptoms. Because of this incident she missed her Suboxone and morning meds and post HD was hypertensive/nauseous. She was kept overnight meds were restarted and this a.m. she is back to baseline. Her son is present and she is wishing to be discharged to outpatient hemodialysis. The importance of compliance with hemodialysis has been stressed with both patient and her son Time Spent with Patient Time attestation: Total time spent providing and/or coordinating discharge services: Discharge coordination time: Greater than 30 minutes Quality: Stroke Does the patient have a stroke diagnosis?: No Physical Exam Vital Signs: Vital Signs: Last Vital Signs Temp 98.2 F 07/29/21 08:00 Pulse 68 07/29/21 08:00 Resp 20 07/29/21 08:00 BP 160/74 H 07/29/21 08:00 Pulse Ox 96 07/29/21 08:00 BMI result Body Mass Index 30.2 Const: Other: Awake alert in no acute distress Resp: Other: Clear to auscultation bilaterally no rales rhonchi wheezes Cardio: Other: No S4; positive S1-S2; no S3 murmurs rubs or gallops GI: Other: Soft nontender nondistended normoactive bowel sounds x4 quadrants Extrem: Other: No edema bilaterally DS: Data Data Completed and Pending Completed studies during hospitalization [Text1]: Procedures Excision of Left Kidney, Percutaneous Approach, Diagnostic (02/25/21) Excision of Right Kidney, Percutaneous Approach, Diagnostic (10/22/20) Insertion of Infusion Device into Superior Vena Cava, Percutaneous Approach (02/25/21) Insertion of Tunneled Vascular Access Device into Chest Subcutaneous Tissue and Fascia, Percutaneous Approach (02/25/21) Performance of Urinary Filtration, Intermittent, Less than 6 Hours Per Day (06/10/21) Transfusion of Nonautologous Red Blood Cells into Peripheral Vein, Percutaneous Approach (02/25/21) Labs on day of discharge: Laboratory Results - last 24 hr 07/28/21 16:03 POC Glucose 90 Discharge Plan Discharge Patient Disposition: Home Health Service Discharge Diagnosis: ESRD non-compliant with HD Referrals: Physician,Unknown J [Primary Care Provider] - 1 Week Discharge Medications: Continued buprenorphine-naloxone [Suboxone] 8-2 mg film 1 strip sublingual BID 0RF diltiazem HCl 180 mg capsule,extended release 24hr 360 mg PO DAILY 0RF aspirin 81 mg tablet,delayed release (DR/EC) 81 mg PO DAILY 0RF Spiriva with HandiHaler 18 mcg capsule, w/inhalation device 1 cap inhalation DAILY 0RF acetaminophen 500 mg Tablet 500 mg PO Q8H PRN (Reason: Pain, Mild) 0RF triamcinolone acetonide 0.025 % cream 1 appl topical BID 0RF sevelamer carbonate 800 mg tablet 1 tab PO TID 0RF clonidine HCl 0.2 mg tablet 0.2 mg PO BID 0RF hydralazine 50 mg tablet 1 tab PO TID 0RF insulin aspart U-100 [Novolog PenFill U-100 Insulin] 100 unit/mL Cartridge 1 sliding scale dose SUBCUT USEASDIRECTD 0RF Protocol: Insulin Correction Scale Less than or equal to 110 ---- Give (units): 0 111 to 150 Give (units): 0 151 to 200 Give (units): 4 201 to 250 Give (units): 6 251 to 300 Give (units): 8 301 to 350 Give (units): 10 Greater than 350 Give (units): 12 Call MD if Blood Glucose > : 350 olanzapine 10 mg tablet 10 mg PO BEDTIME 0RF amlodipine 10 mg Tablet 10 mg PO BEDTIME Qty: 30 0RF Protocol: Hold for SBP< HOLD for SBP < : 90 Rx Instructions: replaces prior dose of 5 mg daily bumetanide 2 mg Tablet 2 mg PO DAILY 0RF pantoprazole 40 mg Tablet,Delayed Release (Dr/Ec) 40 mg PO DAILY 0RF melatonin 5 mg Tablet 5 mg PO BEDTIME PRN (Reason: Sleep) 0RF DIMENSIONAL ENGINEER-Sharifa Rx 1-60-300 mg-mg-mcg Tablet 1 tab PO DAILY 0RF Flovent HFA 110 mcg/actuation Hfa Aerosol Inhaler 1 puff INHALATION BID 0RF Lantus U-100 Insulin 100 unit/mL Solution 14 unit subcut DAILY Qty: 3 0RF Rx Instructions: replaces prior dose of 24 units daily sennosides [senna] 8.6 mg tablet 1 - 2 tab PO BEDTIME PRN (Reason: constipation) 0RF sodium citrate 4 % (3 mL) Syringe 6 ml INTRA-CATHETER MOWEFR 0RF Retacrit 10,000 unit/mL Solution 10,000 unit SUBCUT WE 0RF nicotine 21 mg/24 hr patch 24 hour 1 patch topical DAILY 0RF Discharge Orders: Discharge Order (Routine); Ordered 07/29/21 Ordered By: Kalin Cabrera Diet: advance to usual diet Activity on Discharge: As tolerated Stand Alone Forms: Patient Portal Discharge page Care Plan Goals: Maintain strict compliance with dialysis Health Concerns: Continue current meds as before hospitalization; very important to maintain Sunday dialysis schedule Plan of Treatment: Outpatient dialysis and follow up with Nephrology Assessment: As per discharge summary
[2021-07-29 11:50] VITALS: BP 144/64; PULSE 68; RESP 16; TEMP 36.8; O2SAT 97
[2021-07-29 12:00] LABS: Glucose, Whole Blood 130 mg/dL (60-115)
--- NOTE | 2021-07-29 12:27 | MHC.CM.PN ---
pt dcd home with resumptin of PLDT [facility] APPROVED BY TYLER/OSCAR
== END 2021-07-29 15:03 | disposition home health service (06) | DRG 291 ==
LOC: HO.ED 13:15 → HO.EDOVER 13:34 → HO.ICU 13:43 → HO.IMC 07-28 12:16
PROVIDERS: Admitting Provider Anesthesiology; Emergency Provider Emergency Medicine; PCP Internal Medicine; Visit Provider Hospitalist
DX: I13.2 Hypertensive heart and chronic kidney disease with heart failure and with stage 5 chronic kidney disease, or end stage renal disease (principal); N18.6 End stage renal disease; E87.5 Hyperkalemia; E11.22 Type 2 diabetes mellitus with diabetic chronic kidney disease; Z20.822 Contact with and (suspected) exposure to COVID-19; E83.52 Hypercalcemia; R06.03 Acute respiratory distress; I95.9 Hypotension, unspecified; I50.32 Chronic diastolic (congestive) heart failure; Z99.2 Dependence on renal dialysis; Z91.15 Patient's noncompliance with renal dialysis; F17.210 Nicotine dependence, cigarettes, uncomplicated; Z71.6 Tobacco abuse counseling; Z79.4 Long term (current) use of insulin; Z79.82 Long term (current) use of aspirin; Z79.899 Other long term (current) drug therapy
CPT/HCPCS: 36415; 71045; 80048; 80076; 82947; 83735; 83880; 84484; 85025; 85610; 87635; 90999; 93005; 94640; 94644; 94660; 96365; 96366; 96375; 99285; 99291; J0610; J1940; J2405

== ENCOUNTER 2021-08-08 15:22 | Inpatient (IN) | payer OTHER, SELFPAY ==
--- NOTE | ~2021-08-08 | CT_ITS ---
EXAMINATION: CTA CHEST. CT ABDOMEN AND PELVIS WITH CONTRAST. CLINICAL INFORMATION: SOB. The rectal bleeding. COMPARISON: CT abdomen and pelvis without contrast 02/25/2021. TECHNIQUE: 5 mm thin axial and reformatted 3 mm thin sagittal coronal images of chest were obtained following rapid IV 85 mL Omnipaque 350. Subsequently 5 minutes thin axial and reformatted 3 mm thin sagittal and coronal images of abdomen and pelvis were obtained following CTA chest. DLP 866 FINDINGS: CTA chest: There is suboptimal contrast opacifying the vascular system. The main, right and left pulmonary arteries appear unremarkable. The subsegmental arteries are not well opacified. Heart size and the great vessels are normal caliber. No pericardial effusion seen. The central trachea and the bronchi are widely patent. There are small shotty lymph nodes in the mediastinum. The lungs are well-expanded and clear. There is a 5 mm nodule in the right upper lobe axial image 25/6 and 4 mm nodule right middle lobe axial image 37/5. No airspace consolidation. Interval atelectatic changes seen left lower lobe anterobasal segment adjacent mediastinum and right CP angle. There is groundglass attenuation changes in in both upper lobes superior segment right lower lobe. The heart size and the great vessels are normal caliber. The central trachea and the bronchi are widely patent. The thyroid lobes are symmetric and normal. There is no pericardial effusion. There are coronary artery calcifications present. There is no pleural effusion, thickening or calcification. Small shotty lymph nodes are seen in bilateral axilla. The chest wall appears unremarkable. There are no osseous abnormality seen. Abdomen and pelvis: The liver is normal size, contour and shape. No intrahepatic ductal dilatation or focal lesion seen. The gallbladder has been surgically removed. Visualized spleen, pancreas and bilateral adrenal glands unremarkable. Both kidneys are normal size shape and cortical thickness. No hydronephrosis seen. There is a 4.9 cm. Large upper pole left renal cyst. The abdominal aorta is atherosclerotic and calcified and appears small caliber. There is a large amount of stool seen in the colon. There is diffuse mural thickening involving a long segment of descending and sigmoid colon. Rest of the colon is unremarkable. The small bowel loops are normal caliber. Appendix is normal caliber. There is small amount of free fluid in the pelvis in the paracolic cutter with mild mesenteric haziness secondary to ascites. Abdominal wall appears edematous without hernia. Imaging through the pelvis reveals anteverted uterus. There is free fluid in the pelvis. The bladder is contracted and unremarkable. Bone windows reveal degenerative changes L5-S1 disc level with superior endplate Schmorl's node L3 vertebra. No aggressive lytic or sclerotic process seen.: CT/CT abdomen pelvis w con IMPRESSION: Diffuse mural thickening involving descending and sigmoid colon suggestive of inflammatory or infectious colitis. There is mild constipation the rest of the colon. Normal appendix and small bowel loops. Small amount of free fluid in the pelvis and mesenteric haziness likely edema. There is anterior abdominal wall cellulitis. Large cyst upper pole left kidney. 2 solid nodules in the right upper lobe and right lower lobe. Extensive groundglass attenuation seen in both lungs likely small airway disease changes. Consider 3-6 month follow-up CT chest
--- NOTE | ~2021-08-08 | CT_ITS ---
EXAMINATION: CT ABDOMEN AND PELVIS WITHOUT CONTRAST CLINICAL INFORMATION: Colitis. Abdominal pain. COMPARISON: None TECHNIQUE: Multidetector volumetric imaging was performed from the superior aspect of the liver through the pubic symphysis. Sagittal and coronal reformatted images were obtained on the technologist's workstation. This CT examination was performed using dose optimization techniques as appropriate, variously including the following: *Automated exposure control *Adjustment of mA and/or kV according to patient size (this includes techniques or standardized protocols for targeted exams where dose is matched to indication/reason for exam; i.e. extremities or head) *Use of iterative reconstruction technique DLP: 782 mGy-cm FINDINGS: LUNG BASES: There is mild bilateral pleural effusions with underlying atelectasis. Heart size is normal. LIVER, GALLBLADDER, AND BILIARY TREE: The liver is normal in size, shape, and attenuation. No focal hepatic lesion or biliary ductal dilatation is present. The gallbladder has been surgically removed. PANCREAS: Unremarkable. SPLEEN: Unremarkable. ADRENAL GLANDS: Unremarkable. KIDNEYS AND URETERS: The kidneys are normal in size, shape, and attenuation. No hydronephrosis, hydroureter, or calculi seen. No perinephric stranding. There is a 5.11 x 4.9 cm cyst upper pole left kidney. BLADDER: Unremarkable. GASTROINTESTINAL TRACT: There is scattered stool mild mural thickening involving time descending descending and proximal sigmoid colon and mild pericolic fat stranding likely colitis. Rest of the colon and the small bowel loops are normal caliber. Appendix is normal caliber. The stomach is somewhat distended with oral. There is small amount of free fluid in the pelvis. ABDOMINAL WALL: A small umbilical hernia containing fat is noted. There is diffuse abdominal wall edema/cellulitis. LYMPH NODES: Normal. VASCULAR: There is atherosclerotic calcification of abdominal aorta without aneurysmal dilatation. PELVIC VISCERA: There is mild presacral soft tissue thickening. No evidence of ascites. OSSEOUS STRUCTURES: There is superior endplate Schmorl's node L3 vertebra and mild ventral spondylosis L4-L5 disc level. No aggressive lytic or sclerotic process seen. There is mild spondylosis dorsal spine. CT/CT abdomen pelvis wo con IMPRESSION: Descending and sigmoid colon colitis. Mild free fluid in the pelvis. No bowel obstruction or free air seen. Normal appendix. Small bilateral pleural effusions with underlying atelectasis Moderate-sized cyst upper pole left kidney. Abdominal wall cellulitis. Fleischner guidelines were followed.
[2021-08-08 15:32] VITALS: BP 122/68; BP 151/60; PULSE 67; PULSE 87; RESP 18; TEMP 36.7; O2SAT 16; O2SAT 94; BMI 32.5
--- NOTE | 2021-08-08 15:41 | ED.NAVMDI ---
HPI - Nausea/Vomiting/Diarrhea General Chief complaint: Abdominal Pain Stated complaint: Nausea,vomiting Time Seen by Provider: 08/08/21 15:40 Source: patient Mode of arrival: ambulatory Limitations: no limitations History of Present Illness HPI Narrative: This is a 66-year-old female past medical history significant for hypertension, CHF, end-stage renal disease on dialysis (Sunday,,Sunday)/noncompliant, hepatitis, anemia, presenting to the emergency department with bleeding from rectum, weakness, nausea, diffuse abdominal pain x3 days worsening. Patient tells me that she has blood both in her stool, and when she uses the bathroom it is in the toilet bowl. She tells me she has been bleeding a lot, she tells me it is bright red. She tells me this has never happened before. Reports abdominal pain, diffuse however she tells me it is worse in the left lower quadrant, cramping type pain. She denies any dietary changes. She denies any recent sick contacts. She has not had a colonoscopy. She does not think that there is any family history of colorectal cancer. She does report that she took a stool softener which she usually takes when she is constipated yesterday which she thinks she worsened the bleeding. She tells me she was constipated for a few days a week ago. MD elicited complaint: nausea and vomiting Onset (ago): day(s) (3) Description of vomiting: bloody Associated nausea: Yes Associated abdominal pain: Yes Location of pain: diffuse and LLQ Pain consistency: constant Severity: moderate Quality: cramping Exacerbating factors: none Relieving factors: none Associated symptoms: other (weakness) Related Data Home Medications Medication Instructions Recorded Confirmed aspirin 81 mg tablet,delayed 81 mg PO DAILY 10/22/20 08/08/21 release buprenorphine 8 mg-naloxone 2 mg 1 strip SUBLINGUAL BID 10/22/20 08/08/21 sublingual film (Suboxone) diltiazem HCl 180 mg 360 mg PO DAILY 10/22/20 08/08/21 capsule,extended release 24 hr tiotropium bromide 18 mcg capsule 1 cap INHALATION DAILY 10/22/20 08/08/21 with inhalation device (Spiriva with HandiHaler) olanzapine 10 mg tablet 10 mg PO BEDTIME 02/25/21 08/08/21 bumetanide 2 mg tablet 2 mg PO DAILY 04/15/21 08/08/21 fluticasone propionate 110 1 puff INHALATION BID 04/15/21 08/08/21 mcg/actuation HFA aerosol inhaler (Flovent HFA) melatonin 5 mg tablet 5 mg PO BEDTIME PRN 04/15/21 08/08/21 pantoprazole 40 mg tablet,delayed 40 mg PO DAILY 04/15/21 08/08/21 release vitamin B comp no.3-folic acid 1 1 tab PO DAILY 04/15/21 08/08/21 mg-vit C 60 mg-biotin 300 mcg tablet (ASPHALT PAVING SUPERINTENDENT-Sharifa Rx) epoetin kateryna-epbx 10,000 unit/mL 10,000 unit SUBCUT WE@1000 05/11/21 08/08/21 injection solution (Retacrit) sennosides 8.6 mg tablet (senna) 1 - 2 tab PO BEDTIME PRN 05/11/21 08/08/21 acetaminophen 500 mg tablet 500 mg PO Q8H PRN 06/10/21 08/08/21 sevelamer carbonate 800 mg tablet 800 mg PO TID 06/10/21 08/08/21 triamcinolone acetonide 0.025 % 1 appl TOPICAL BID 06/10/21 08/08/21 topical cream nicotine 21 mg/24 hr daily 1 patch TOPICAL DAILY 06/18/21 08/08/21 transdermal patch clonidine HCl 0.2 mg tablet 0.2 mg PO BID 07/27/21 08/08/21 hydralazine 50 mg tablet 1 tab PO TID 07/27/21 08/08/21 insulin aspart U-100 100 unit/mL 1 sliding scale dose SUBCUT 07/27/21 08/08/21 subcutaneous cartridge (Novolog USEASDIRECTD PenFill U-100 Insulin aspart) trazodone 100 mg tablet 1 - 2 tab PO BEDTIME PRN 08/08/21 08/08/21 Previous Rx's Medication Instructions Recorded amlodipine 10 mg tablet 10 mg PO BEDTIME #30 tab 03/07/21 insulin glargine 100 unit/mL 14 unit (0.14 mL) SUBCUT DAILY #3 04/19/21 subcutaneous solution (Lantus ml U-100 Insulin) Allergies Allergy/AdvReac Type Severity Reaction Status Date / Time No Known Allergies Allergy Mild NOT Verified 12/14/20 11:50 APPLICABLE Review of Systems Review of Systems: Constitutional : No Weight loss, No Fever, No Chills, No Fatigue, No Malaise ENT/Mouth : No sore throat, No Rhinorrhea Eyes: No Eye Pain, No Swelling, No Redness Cardiovascular : No Chest Pain, No SOB, No Dyspnea on Exertion, No Orthopnea, No Edema, No Palpitations Respiratory : No Cough, No Sputum, No Wheezing Gastrointestinal : No Nausea, No Vomiting, No Diarrhea, No Constipation, No abdominal Pain, + Hematochezia, No Melena Genitourinary : No Dysuria, No Urinary Frequency, No Hematuria, Musculoskeletal : No joint pain, No Myalgias, No Joint Swelling Skin : No Skin Lesions, No rash Neuro : + Weakness, No Numbness, No Dizziness, No Headache Psych : No Anxiety/Panic, No Depression All other systems reviewed and are negative Yes all other systems are reviewed and are negative Gastrointestinal: Gastrointestinal: Reports nausea PMFSH Past Medical History Attestation statement: The following information was validated with the patient. Source: old records reviewed and nursing notes reviewed Medical History Acute kidney injury superimposed on chronic kidney disease VANDANA (acute kidney injury) Anemia in chronic kidney disease CHF (congestive heart failure) Constipation Diabetes mellitus Diastolic congestive heart failure End-stage renal disease (ESRD) Essential hypertension HTN (hypertension) HTN (hypertension) Hypertension Non-compliance Normocytic anemia Surgical History No pertinent past surgical history Family History Family History Other Hypertension Social History Social History Household Members: None Housing: Assisted Living Facility Do you presently have visiting nurse or other home services: Yes (visiting nurse/FIRE PROTECTION EQUIPMENT TECHNICIAN) Alcohol intake: unknown Patient Tobacco Use Status: Current everyday Tobacco user Tobacco use type: Cigarette Cigarette Packs Per Day: 1 Cigarettes Per Day: 5 Years Smoked: 18 e-Cigarette/Vaping Use: Never Used Second Hand Smoke Exposure: No Substance Use Type: Heroin Advance Directives: Yes Advance Directives on File: Yes Advance Directives Date on File: 04/20/21 service: No Current occupational status: disabled Physical Exam Vital Signs: Vital Signs: Last Vital Signs Temp 97.7 F 08/08/21 19:30 Pulse 77 08/08/21 19:44 Resp 16 08/08/21 19:44 BP 157/71 H 08/08/21 19:30 Pulse Ox 95 08/08/21 19:44 BMI result Body Mass Index 32.5 VSS Appearance: Alert.? Oriented X3.? No acute distress.? Head: Normocephalic, atraumatic, no step-offs or deformities Eyes: Pupils equal, round and reactive to light.? ENT: Pharynx normal.? Neck: Normal inspection.? Neck supple.? CVS: Normal heart rate and rhythm.? Pulses normal.? Respiratory: No respiratory distress.? Breath sounds normal.? Abdomen: Soft and + diffusely tender.? Abdomen is distended with normoactive bowel sounds. Skin: Skin warm and dry.? Normal skin color.? Normal skin turgor.? Rectal: Evident bright red blood per rectum. No external hemorrhoids noted. Extremities: ++ 2 nonpitting edema to bilateral lower extremities. No calf ttp. 5/5 strength to bilateral upper and lower extremities Back: No midline tenderness, no C-spine tenderness, full range of motion, no CVA tenderness bilaterally Neuro: Oriented X 3.? No motor deficit.? No sensory deficit. CN 2-12 intact Course Reevaluation(s) Reevaluation #1: Patient noted to have a significant leukocytosis, normocytic anemia, that appears to be around patient's baseline is noted. Patient noted to be hyponatremic however this appears to be her baseline. Potassium within normal limits. BUN 33, creatinine 8.5 patient does have CKD and is scheduled for dialysis tomorrow. Patient's lactic acid within normal limits. Magnesium 2.9. Patient's alk-phos slightly elevated. Her BNP is elevated at 2732, 100 mg of Lasix ordered at this time. Patient's lactic is within normal limits unlikely abdominal peritonitis At this time infection is suspected however I will hold on fluids as patient appears to be in acute fluid overload. Patient is reporting slight shortness of breath and is not tolerating her head down. She is sitting upright in bed. Spoke to Dr. López who is ok with patient getting CT abdomen and pelvis w/ contrast, admit w/ dialysis tomorrow and if patient is actively bleeding he recommends DDAVP 1 dose 0.3 mcg. Time: 17:07 Reevaluation #2: CT of the abdomen does show an anterior abdominal wall cellulitis. And ground-glass changes on chest CT likely pneumonia. Patient is getting Zosyn and vanco which will cover. Patient will be admitted to the hospitalist team. Time: 21:04 MDM - Nausea/Vomiting/Diarrhea MDM Narrative Medical decision making narrative: 1556 66 yo f pmhx htn, CHF, ESRD on dialysis/noncompliant, hepatitis, anemia, presents w/ bleeding from rectum, weakness, nausea, diffuse abdominal pain x3 days worsening. Physical exam significant for diffusely tender and distended abdomen mostly tender in left lower quadrant, normoactive bowel sounds. Lungs clear. Regular rate and rhythm. Rectal exam with aziza blood evident. There is also blood in patient's brief. Neuro exam nonfocal. Plan at this time is OBS, type and screen, labs, imaging, UA. Medical Records Attestation: I reviewed the patient's medical records. Lab Data Attestation: I reviewed the patient's lab results. Result diagrams: 08/08/21 16:11 08/08/21 16:11 Labs: Lab Results 08/08/21 08/08/21 08/08/21 Range/Units 15:55 15:56 16:11 WBC 19.9 H (4.8-10.8) X10*3/uL RBC 3.02 L (4.20-5.50) X10*6/uL Hgb 8.7 L (12.0-16.0) g/dl Hct 27.8 L (37.0-47.0) % MCV 92.1 (80.0-98.0) fL MCH 28.8 (27.0-33.0) pg MCHC 31.3 (31.0-35.0) g/dl RDW 15.7 (11.0-16.0) % Plt Count 239 (160-400) X10*3/uL MPV 9.9 (9.4-12.3) fL Immature Gran % (Auto) 0.4 (0.0-0.4) % Neut % (Auto) 83.9 H (45-73) % Lymph % (Auto) 7.8 L (20-40) % [place] % (Auto) 5.7 (2-11) % Eos % (Auto) 2.0 (0-4) % Baso % (Auto) 0.2 (0-2) % Lymph # (Auto) 1.6 (1.2-4.9) X10*3/uL [place] # (Auto) 1.1 (0.1-1.2) X10*3/uL Eos # (Auto) 0.4 (0.0-0.4) X10*3/uL Baso # (Auto) 0.0 (0.0-0.2) X10*3/uL Abs Immat Gran (auto) 0.08 H (0.00-0.03) X10*3/uL Absolute Neuts (auto) 16.7 H (2.0-8.3) x10*3/uL Absolute Nucleated RBC 0.000 (0.0-0.012) X10*3/uL Nucleated RBC % (auto) 0.0 (0.0-0.2) /100WBC PT (9.9-13.0) SEC INR (0.9-1.1) Sodium (135-145) mmol/L Potassium (3.3-5.1) mmol/L Chloride (96-108) mmol/L Carbon Dioxide (22-29) mmol/L Anion Gap (12-20) BUN (9-16) mg/dL Creatinine (0.5-1.4) mg/dL Estim Creat Clear Calc Estimated GFR Random Glucose (60-115) mg/dL Lactic Acid (0.5-2.0) mmol/L Calcium (8.4-10.2) mg/dL Magnesium (1.6-2.6) mg/dL Total Bilirubin (0.0-1.0) mg/dL AST (5-31) U/L ALT (0-31) U/L Alkaline Phosphatase (39-117) U/L B-Natriuretic Peptide (<100) pg/mL Total Protein (6.5-8.0) g/dL Albumin (3.5-5.0) g/dL Lipase (8-78) U/L Stool Occult Blood POSITIVE (NEGATIVE) COVID-19 (KRYSTINA) Negative (Negative) COVID-19 Clin Com See Note Blood Type Antibody Screen 08/08/21 08/08/21 08/08/21 Range/Units 16:11 16:11 16:11 WBC (4.8-10.8) X10*3/uL RBC (4.20-5.50) X10*6/uL Hgb (12.0-16.0) g/dl Hct (37.0-47.0) % MCV (80.0-98.0) fL MCH (27.0-33.0) pg MCHC (31.0-35.0) g/dl RDW (11.0-16.0) % Plt Count (160-400) X10*3/uL MPV (9.4-12.3) fL Immature Gran % (Auto) (0.0-0.4) % Neut % (Auto) (45-73) % Lymph % (Auto) (20-40) % [place] % (Auto) (2-11) % Eos % (Auto) (0-4) % Baso % (Auto) (0-2) % Lymph # (Auto) (1.2-4.9) X10*3/uL [place] # (Auto) (0.1-1.2) X10*3/uL Eos # (Auto) (0.0-0.4) X10*3/uL Baso # (Auto) (0.0-0.2) X10*3/uL Abs Immat Gran (auto) (0.00-0.03) X10*3/uL Absolute Neuts (auto) (2.0-8.3) x10*3/uL Absolute Nucleated RBC (0.0-0.012) X10*3/uL Nucleated RBC % (auto) (0.0-0.2) /100WBC PT 10.8 (9.9-13.0) SEC INR 1.0 (0.9-1.1) Sodium 129 L (135-145) mmol/L Potassium 4.9 D (3.3-5.1) mmol/L Chloride 91 L (96-108) mmol/L Carbon Dioxide 23 (22-29) mmol/L Anion Gap 20 (12-20) BUN 33 H D (9-16) mg/dL Creatinine 8.50 H* (0.5-1.4) mg/dL Estim Creat Clear Calc 6.2 Estimated GFR 5 Random Glucose 98 (60-115) mg/dL Lactic Acid (0.5-2.0) mmol/L Calcium 8.4 D (8.4-10.2) mg/dL Magnesium 2.9 H (1.6-2.6) mg/dL Total Bilirubin 0.4 (0.0-1.0) mg/dL AST 26 (5-31) U/L ALT 17 (0-31) U/L Alkaline Phosphatase 130 H (39-117) U/L B-Natriuretic Peptide 2732 H (<100) pg/mL Total Protein 6.2 L (6.5-8.0) g/dL Albumin 3.5 (3.5-5.0) g/dL Lipase 11 (8-78) U/L Stool Occult Blood (NEGATIVE) COVID-19 (KRYSTINA) (Negative) COVID-19 Clin Com Blood Type Antibody Screen 08/08/21 08/08/21 Range/Units 16:45 18:30 WBC (4.8-10.8) X10*3/uL RBC (4.20-5.50) X10*6/uL Hgb (12.0-16.0) g/dl Hct (37.0-47.0) % MCV (80.0-98.0) fL MCH (27.0-33.0) pg MCHC (31.0-35.0) g/dl RDW (11.0-16.0) % Plt Count (160-400) X10*3/uL MPV (9.4-12.3) fL Immature Gran % (Auto) (0.0-0.4) % Neut % (Auto) (45-73) % Lymph % (Auto) (20-40) % [place] % (Auto) (2-11) % Eos % (Auto) (0-4) % Baso % (Auto) (0-2) % Lymph # (Auto) (1.2-4.9) X10*3/uL [place] # (Auto) (0.1-1.2) X10*3/uL Eos # (Auto) (0.0-0.4) X10*3/uL Baso # (Auto) (0.0-0.2) X10*3/uL Abs Immat Gran (auto) (0.00-0.03) X10*3/uL Absolute Neuts (auto) (2.0-8.3) x10*3/uL Absolute Nucleated RBC (0.0-0.012) X10*3/uL Nucleated RBC % (auto) (0.0-0.2) /100WBC PT (9.9-13.0) SEC INR (0.9-1.1) Sodium (135-145) mmol/L Potassium (3.3-5.1) mmol/L Chloride (96-108) mmol/L Carbon Dioxide (22-29) mmol/L Anion Gap (12-20) BUN (9-16) mg/dL Creatinine (0.5-1.4) mg/dL Estim Creat Clear Calc Estimated GFR Random Glucose (60-115) mg/dL Lactic Acid 0.6 (0.5-2.0) mmol/L Calcium (8.4-10.2) mg/dL Magnesium (1.6-2.6) mg/dL Total Bilirubin (0.0-1.0) mg/dL AST (5-31) U/L ALT (0-31) U/L Alkaline Phosphatase (39-117) U/L B-Natriuretic Peptide (<100) pg/mL Total Protein (6.5-8.0) g/dL Albumin (3.5-5.0) g/dL Lipase (8-78) U/L Stool Occult Blood (NEGATIVE) COVID-19 (KRYSTINA) (Negative) COVID-19 Clin Com Blood Type O Positive Antibody Screen NEGATIVE Critical Care Time Critical Care Time Critical Care Time: No Discharge Plan Discharge Clinical Impression: CHF (congestive heart failure), Hyponatremia, Anemia, Leukocytosis, CKD (chronic kidney disease), Pneumonia, Colitis Patient Disposition: Admitted As Inpatient
[2021-08-08 16:13] LABS: OBS Int Ctl Valid YES; OBS1 POSITIVE (NEGATIVE)
[2021-08-08 16:21] LABS: MANUAL DIFF FLAG NO
[2021-08-08 16:24] LABS: Basophils Percent Auto 0.2 % (0-2); Eosinophils Absolute Auto 0.4 X10*3/uL (0.0-0.4); Hematocrit 27.8 % (37.0-47.0); Hemoglobin 8.7 g/dl (12.0-16.0); Imm Gran Abs Auto 0.08 X10*3/uL (0.00-0.03); Imm Gran Pct Auto 0.4 % (0.0-0.4); Lymphocytes Absolute Auto 1.6 X10*3/uL (1.2-4.9); Lymphocytes Percent Auto 7.8 % (20-40); Mean Corpuscular HGB Conc 31.3 g/dl (31.0-35.0); Mean Corpuscular Hemoglobin 28.8 pg (27.0-33.0); Mean Corpuscular Volume 92.1 fL (80.0-98.0); Mean Platelet Volume 9.9 fL (9.4-12.3); Monocytes Absolute Auto 1.1 X10*3/uL (0.1-1.2); Monocytes Percent Auto 5.7 % (2-11); Neutrophils Absolute Auto 16.7 x10*3/uL (2.0-8.3); Neutrophils Percent Auto 83.9 % (45-73); Platelet Count 239 X10*3/uL (160-400); Red Blood Count 3.02 X10*6/uL (4.20-5.50); Red Cell Distribution Width 15.7 % (11.0-16.0); White Blood Count 19.9 X10*3/uL (4.8-10.8)
[2021-08-08 16:31] LABS: Prothrombin Time 10.8 SEC (9.9-13.0)
[2021-08-08 16:32] LABS: COVID-19 Test Negative (Negative)
[2021-08-08 16:42] LABS: Alanine Aminotransferase 17 U/L (0-31); Albumin Level 3.5 g/dL (3.5-5.0); Alkaline Phosphatase 130 U/L (39-117); Anion Gap 20 (12-20); Aspartate Amino Transferase 26 U/L (5-31); B Type Natriuretic Peptide 2732 pg/mL (<100); Bilirubin Total 0.4 mg/dL (0.0-1.0); Blood Urea Nitrogen 33 mg/dL (9-16); Calcium 8.4 mg/dL (8.4-10.2); Carbon Dioxide 23 mmol/L (22-29); Chloride 91 mmol/L (96-108); Creatinine Clr Calc Pharmacy 6.2; Estimated Glomerular Filt Rate 5; Glucose Random 98 mg/dL (60-115); Lipase 11 U/L (8-78); Magnesium 2.9 mg/dL (1.6-2.6); Potassium 4.9 mmol/L (3.3-5.1); Sodium 129 mmol/L (135-145); Total Protein 6.2 g/dL (6.5-8.0)
[2021-08-08] MEDS: iohexoL 350 MG/ML 100 ML INFUS..BTL IV (17:53)
--- NOTE | 2021-08-08 18:21 | PHA.PROG ---
Admission Date/Time: 08/08/211829 Indication: 'OTHER' Weight in k.1 kg Adjusted body weight in K.9 [place] body weight in K.8 Obesity Dosing Indication % IBW: Serum Creatinine - Last 168 Hours 08/08/21 16:11 Creatinine 8.50 H* Estimated CrCl and GFR - Last 168 Hours 08/08/21 16:11 Estim Creat Clear Calc 6.2 Estimated GFR 5 Vancomycin Loading Dose: 1000 MG X1 Current Vancomycin Dosing Regimen: STAGE 3 CKD; WILL NEED TO GET POST-HD LEVEL Vancomycin Monitoring using AUC goal of 400 - 600 range with trough as surrogate marker: Date and Time for next Vancomycin Level to be drawn: 08/09/21 16:45 Pharmacist Comments on Vancomycin Plan: CAN NOT DO MUCH UNTIL BE SEE WHERE LEVEL IS TOMORROW Vancomycin dosing will take advantage of [employer] as a clinical decision support tool that uses Bayesian modeling to calculate individual patient's pharmacokinetic parameters and forecast the patient's drug concentration time course with the target goal AUC 24 range of 400 - 600 mg/L/hr.
[2021-08-08 18:53] LABS: Lactic Acid 0.6 mmol/L (0.5-2.0)
[2021-08-08 19:30] VITALS: BP 157/71; PULSE 78; RESP 16; TEMP 36.5; O2SAT 89
[2021-08-08] MEDS: Furosemide 100 MG/10 ML VIAL IVPUSH (19:34)
[2021-08-08] MEDS: Piperacillin Sodium/Tazobactam 2.25 GM in 0.9 % Sodium Chloride 50 ML IV (19:43)
[2021-08-08 19:44] VITALS: PULSE 77; RESP 16; O2SAT 95
[2021-08-08] MEDS: vancomycin HCL 1,000 MG in 0.9 % Sodium Chloride 250 ML 270 MG IV (20:05)
--- NOTE | 2021-08-08 22:47 | MHC.CM.PN ---
CM met with admitted patient with bed assignment pending with medical supply technician, as pt is Frisian speaking. IMM reviewed and signed 08/08/2021@2237. HCP on file. HCP/COMPUTATOR Chelly Kelley ([phone]). Pt has [employer] insurance. COMPUTATOR Chelly and Keven. Has services 8-1pm x 7 days. Lives alone. Uses a cane and a walker. Has Dialysis Sunday, and Sunday. Pt unsure of Dialysis facility, but states it's in [place]. ? [facility]. Pt states she takes a taxi to dialysis. Pt states she is vaccinated against Covid 19, but cannot remember name or how many doses. D/C plan is home with existing services. Pt to arrange transportation home from COMPUTATOR. CM to follow for d/c needs.
--- NOTE | 2021-08-08 22:59 | MHC.CM.PN ---
CM unable to verify dialysis services at 11pm.
[2021-08-09] VITALS (12 sets, daily range): BP systolic 120–180; BP diastolic 61–80; PULSE 62–85; RESP 14–22; TEMP 35.8–37.1; O2SAT 93–98; BMI 31.6
--- NOTE | 2021-08-09 00:05 | P.HPHOSP_ITS ---
History of Present Illness Date of Service: 08/09/21 Chief Complaint: abd pain. bloody per rectum 66-year-old female with past medical history of ESRD D on dialysis Sunday with a history of noncompliance, CHF, diabetes, hypertension, presents to the hospital with complaints of bright red blood per rectum. History is obtained with the help of tax assessor as patient is Portuguese-speaking. Patient is inconsistent with her history but reports that she has been constipated for past 5 days, she took a bowel regimen but by her son [id number], developed significant diarrhea 2 days ago, and noticed bloody bowel movements. She has also noticed significant abdominal pain that is diffuse, constant, 10/10, nonradiating, associated with nausea with no vomiting, has chills with no fever, she has also noticed significant abdominal distension. She reports that she did not go to dialysis over the weekend because she was not feeling well. She has chronic shortness of breath that has not increased, she denies any cough, she reports that she has significant constipation. She continues to produce urine and reports no significant urinary symptoms, denies any worsening lower extremity edema. On arrival to the ED patient found to have a temp of 98.1 degrees, heart rate of 67, blood pressure of 151/60, respiratory rate of 18, satting 94% on room air . While in the ED she did drop to 89% on room air and was placed on 2 L of nasal cannula labs are significant for WBC count 19.9, hemoglobin of 8.7 with a previous hemoglobin 9.8 on 07/27, sodium of 129 which is around her baseline, potassium 4.9, BUN of 33, creatinine of 8.5, magnesium of 2.9, BNP of 2732, stool occult positive, UA collection pending, abdominal CT shows diffuse mural thickening involving descending and sigmoid colon suggestive of inflammatory infectious colitis, there is mild constipation for the rest of the colon, small amount of free fluid in the pelvis and mesenteric haziness likely edema in the setting of ascites, there is anterior abdominal wall cellulitis, there is also 2 solid nodules in the right lobe and right lower lobe of the lungs, with extensive ground-glass attenuation seen in both lungs. Patient started on IV antibiotics and will be admitted for further management Review of Systems Review of Systems: Yes all other systems are reviewed and are negative PMFSH Medical History Acute kidney injury superimposed on chronic kidney disease VANDANA (acute kidney injury) Anemia in chronic kidney disease CHF (congestive heart failure) Constipation Diabetes mellitus Diastolic congestive heart failure End-stage renal disease (ESRD) Essential hypertension HTN (hypertension) HTN (hypertension) Hypertension Non-compliance Normocytic anemia Family History Other Hypertension Surgical History No pertinent past surgical history Social History Household Members: None Housing: Assisted Living Facility Do you presently have visiting nurse or other home services: Yes (visiting nurse/[employer]) Alcohol intake: unknown Patient Tobacco Use Status: Current everyday Tobacco user Tobacco use type: Cigarette Cigarette Packs Per Day: 1 Cigarettes Per Day: 5 Years Smoked: 18 e-Cigarette/Vaping Use: Never Used Second Hand Smoke Exposure: No Substance Use Type: Heroin Advance Directives: Yes Advance Directives on File: Yes Advance Directives Date on File: 04/20/21 service: No Current occupational status: disabled Meds Allergies Allergy/AdvReac Type Severity Reaction Status Date / Time No Known Allergies Allergy Mild NOT Verified 12/14/20 11:50 APPLICABLE Active Medications: Current Medications Acetaminophen (Acetaminophen 325 Mg Tablet) 650 mg PO Q6H PRN PRN Reason: Pain, Mild (Pain Scale 1-3) Vancomycin HCl 1,500 mg/ (Sodium Chloride) 500 mls @ 333.333 mls/hr IV Q12H PHAN Piperacillin Sod/Tazobactam (Sod 2.25 gm/ Sodium Chloride) 50 mls @ 100 mls/hr IV Q6H PHAN Morphine Sulfate (Morphine Sulfate 4 Mg/Ml Cartridge) 4 mg IVPUSH Q4H PRN; Protocol PRN Reason: Pain, Severe (Pain Scale 7-10) Ondansetron HCl (Ondansetron Hcl 4 Mg/2 Ml Vial) 4 mg IVPUSH Q8H PRN PRN Reason: Nausea and Vomiting Pharmacy Consult (Consult Rx Vancomycin Dosing) 1 each MISCELLANE DAILY PRN PRN Reason: Consult order Pharmacy Consult (Consult Rx Vancomycin Dosing) 1 each MISCELLANE DAILY PRN PRN Reason: Consult order Sodium Chloride (0.9 % Sodium Chloride Flush 3 Ml Syringe) 3 ml IVFLUSH QSHIFT [facility] Home Medications Medication Instructions Recorded Confirmed Last Taken Type aspirin 81 mg tablet,delayed 81 mg PO DAILY 10/22/20 08/08/21 Unknown History release buprenorphine 8 mg-naloxone 2 mg 1 strip SUBLINGUAL BID 10/22/20 08/08/21 Unknown History sublingual film (Suboxone) diltiazem HCl 180 mg 360 mg PO DAILY 10/22/20 08/08/21 Unknown History capsule,extended release 24 hr tiotropium bromide 18 mcg capsule 1 cap INHALATION DAILY 10/22/20 08/08/21 Unknown History with inhalation device (Spiriva with HandiHaler) olanzapine 10 mg tablet 10 mg PO BEDTIME 02/25/21 08/08/21 Unknown History bumetanide 2 mg tablet 2 mg PO DAILY 04/15/21 08/08/21 Unknown History fluticasone propionate 110 1 puff INHALATION BID 04/15/21 08/08/21 Unknown History mcg/actuation HFA aerosol inhaler (Flovent HFA) melatonin 5 mg tablet 5 mg PO BEDTIME PRN 04/15/21 08/08/21 Unknown History pantoprazole 40 mg tablet,delayed 40 mg PO DAILY 04/15/21 08/08/21 Unknown History release vitamin B comp no.3-folic acid 1 1 tab PO DAILY 04/15/21 08/08/21 Unknown History mg-vit C 60 mg-biotin 300 mcg tablet ([employer]) epoetin kateryna-epbx 10,000 unit/mL 10,000 unit SUBCUT WE@1000 05/11/21 08/08/21 Unknown History injection solution (Retacrit) sennosides 8.6 mg tablet (senna) 1 - 2 tab PO BEDTIME PRN 05/11/21 08/08/21 Unknown History acetaminophen 500 mg tablet 500 mg PO Q8H PRN 06/10/21 08/08/21 Unknown History sevelamer carbonate 800 mg tablet 800 mg PO TID 06/10/21 08/08/21 Unknown History triamcinolone acetonide 0.025 % 1 appl TOPICAL BID 06/10/21 08/08/21 Unknown History topical cream nicotine 21 mg/24 hr daily 1 patch TOPICAL DAILY 06/18/21 08/08/21 Unknown History transdermal patch clonidine HCl 0.2 mg tablet 0.2 mg PO BID 07/27/21 08/08/21 Unknown History hydralazine 50 mg tablet 1 tab PO TID 07/27/21 08/08/21 Unknown History insulin aspart U-100 100 unit/mL 1 sliding scale dose SUBCUT 07/27/21 08/08/21 Unknown History subcutaneous cartridge (Novolog USEASDIRECTD PenFill U-100 Insulin aspart) trazodone 100 mg tablet 1 - 2 tab PO BEDTIME PRN 08/08/21 08/08/21 Unknown History Physical Exam Vital Signs and Narrative: Vital Signs: Last Vital Signs Temp 97.7 F 08/08/21 19:30 Pulse 77 08/08/21 19:44 Resp 16 08/08/21 19:44 BP 157/71 H 08/08/21 19:30 Pulse Ox 95 08/08/21 19:44 BMI result Body Mass Index 32.5 Const: General: cooperative and no acute distress Orientation/consciousness: patient oriented x3 Eyes: General: appearance normal, both eyes and all related structures Pupils: Equal, round and reactive pupils present Resp: Effort & Inspection: normal respiratory effort Auscultation: clear to auscultation bilaterally Cardio: Rate: regular rate Rhythm: regular rhythm GI: Other: abdomen is 3+ distended, significant tenderness on palpation, even slight palpation of abdomen causes significant pain throughout the abdomen Skin: General skin exam: no rashes or lesions noted Neuro: General: patient oriented x3 Cranial nerves: Yes Equal, round and reactive pupils present Extrem: Other: 2+ nonpitting lower extremity edema General: Yes normal to inspection and Yes no pedal edema Results Labs CBC and Chem 7: 08/08/21 16:11 08/08/21 16:11 Labs: Laboratory Results - last 24 hr 08/08/21 08/08/21 08/08/21 15:55 15:56 16:11 MCV 92.1 MCH 28.8 MCHC 31.3 RDW 15.7 Plt Count 239 MPV 9.9 Immature Gran % (Auto) 0.4 Neut % (Auto) 83.9 H Lymph % (Auto) 7.8 L [place] % (Auto) 5.7 Eos % (Auto) 2.0 Baso % (Auto) 0.2 Lymph # (Auto) 1.6 [place] # (Auto) 1.1 Eos # (Auto) 0.4 Baso # (Auto) 0.0 Abs Immat Gran (auto) 0.08 H Absolute Neuts (auto) 16.7 H Absolute Nucleated RBC 0.000 Nucleated RBC % (auto) 0.0 PT INR Anion Gap Estim Creat Clear Calc Estimated GFR Random Glucose Lactic Acid Calcium Magnesium Total Bilirubin AST ALT Alkaline Phosphatase B-Natriuretic Peptide Total Protein Albumin Lipase Stool Occult Blood POSITIVE COVID-19 ([facility]YSTINA) Negative COVID-19 Clin Com See Note Blood Type Antibody Screen 08/08/21 08/08/21 08/08/21 16:11 16:11 16:11 MCV MCH MCHC RDW Plt Count MPV Immature Gran % (Auto) Neut % (Auto) Lymph % (Auto) [place] % (Auto) Eos % (Auto) Baso % (Auto) Lymph # (Auto) [place] # (Auto) Eos # (Auto) Baso # (Auto) Abs Immat Gran (auto) Absolute Neuts (auto) Absolute Nucleated RBC Nucleated RBC % (auto) PT 10.8 INR 1.0 Anion Gap 20 Estim Creat Clear Calc 6.2 Estimated GFR 5 Random Glucose 98 Lactic Acid Calcium 8.4 D Magnesium 2.9 H Total Bilirubin 0.4 AST 26 ALT 17 Alkaline Phosphatase 130 H B-Natriuretic Peptide 2732 H Total Protein 6.2 L Albumin 3.5 Lipase 11 Stool Occult Blood COVID-19 (KRYSTINA) COVID-19 [employer] Com Blood Type Antibody Screen 08/08/21 08/08/21 16:45 18:30 MCV MCH MCHC RDW Plt Count MPV Immature Gran % (Auto) Neut % (Auto) Lymph % (Auto) [place] % (Auto) Eos % (Auto) Baso % (Auto) Lymph # (Auto) [place] # (Auto) Eos # (Auto) Baso # (Auto) Abs Immat Gran (auto) Absolute Neuts (auto) Absolute Nucleated RBC Nucleated RBC % (auto) PT INR Anion Gap Estim Creat Clear Calc Estimated GFR Random Glucose Lactic Acid 0.6 Calcium Magnesium Total Bilirubin AST ALT Alkaline Phosphatase B-Natriuretic Peptide Total Protein Albumin Lipase Stool Occult Blood COVID-19 (KRYSTINA) COVID-19 Clin Com Blood Type O Positive Antibody Screen NEGATIVE Imaging Radiologist's Impressions: Impressions Abdomen/Pelvis CT 08/08/21 17:53 IMPRESSION: Diffuse mural thickening involving descending and sigmoid colon suggestive of inflammatory or infectious colitis. There is mild constipation the rest of the colon. Normal appendix and small bowel loops. Small amount of free fluid in the pelvis and mesenteric haziness likely edema. There is anterior abdominal wall cellulitis. Large cyst upper pole left kidney. 2 solid nodules in the right upper lobe and right lower lobe. Extensive groundglass attenuation seen in both lungs likely small airway disease changes. Consider 3-6 month follow-up CT chest Chest CT 08/08/21 17:53 IMPRESSION: Diffuse mural thickening involving descending and sigmoid colon suggestive of inflammatory or infectious colitis. There is mild constipation the rest of the colon. Normal appendix and small bowel loops. Small amount of free fluid in the pelvis and mesenteric haziness likely edema. There is anterior abdominal wall cellulitis. Large cyst upper pole left kidney. 2 solid nodules in the right upper lobe and right lower lobe. Extensive groundglass attenuation seen in both lungs likely small airway disease changes. Consider 3-6 month follow-up CT chest Assessment and Plan (1) Hyponatremia: Status: Acute (2) Acute GI bleeding: Status: Acute (3) Abdominal wall cellulitis: Status: Acute (4) ESRD (end stage renal disease) on dialysis: Status: Acute (5) Colitis: Status: Acute (6) Pneumonia: Status: Acute Plan this is a 66-year-old female with past medical history of ESRD on dialysis not compliant, CHF presents to the hospital with multiple complaints found to have positive GI bleed, as well as cellulitis and colitis # GI bleed - hypodermically stable, no significant drop in hemoglobin, as stool occult positive - Likely secondary to colitis - no evidence of bleeding diverticulitis on abdominal CT - CT abdomen as seen above with is mural thickening involving descending and sigmoid colon - will trend H&H - pantoprazole 40 IV b.i.d. - GI consult # colitis - patient has significant abdominal distension, CT evidence as above - will treat with IV antibiotics - follow cultures # anterior abdominal wall cellulitis - no evidence of skin infection on exam - will treat with IV antibiotics as above - follow cultures # pneumonia - patient found to be hypoxic O2 dropping to 89% on room air - evidence of pneumonia on chest x-ray with bilateral ground-glass attenuation - has leukocytosis - will treat with broad-spectrum IV antibiotics given recent hospital admissio n - follow cultures # ESRD on dialysis noncompliant - potassium within normal limits - consult Nephrology for stat dialysis in a.m. S patient is in significant volume overload # hyponatremia - chronic - follow BMP # elevated troponin - chronically elevated - likely type 2 in the setting of ESRD as well as GI bleed and acute infection - monitor # heart failure - patient is in volume overload - she does produce slight amount of urine - will add IV Lasixe which discontinued once patient receives her dialysis DVT prophylaxis: SCDs Quality Stroke Does the patient have a stroke diagnosis?: No VTE Prior VTE?: No VTE Risk Level:: Medical - moderate - high VTE Device Contraindication: N/A - Device Ordered VTE Drug Contraindication: Treatment Not Indicated
[2021-08-09 00:54] LABS: Troponin-I High Sensitivity 65.1 ng/L (<3.5-17.0)
[2021-08-09] MEDS: Piperacillin Sodium/Tazobactam 2.25 GM in 0.9 % Sodium Chloride 50 ML IV ×4 (01:37→20:53)
[2021-08-09] MEDS: amLODIPine Besylate 10 MG TABLET PO ×2 (01:38→21:12)
--- NOTE | 2021-08-09 02:03 | PC.NURSE ---
This rn took over patient's care at 0130, patient is alert, oriented, Togolese speaking. Dialysis cath to right upper chest. Patient denies any pain or discomfort at this time, vss, iv abx administered per emar. Warm blanket given to pt.
[2021-08-09] MEDS: ondansetron HCL 4 MG/2 ML VIAL IVPUSH (03:41)
[2021-08-09 06:52] LABS: MANUAL DIFF FLAG NO
[2021-08-09 06:54] LABS: Basophils Percent Auto 0.2 % (0-2); Eosinophils Absolute Auto 0.5 X10*3/uL (0.0-0.4); Eosinophils Percent Auto 2.6 % (0-4); Hematocrit 30.1 % (37.0-47.0); Hemoglobin 9.6 g/dl (12.0-16.0); Imm Gran Abs Auto 0.12 X10*3/uL (0.00-0.03); Imm Gran Pct Auto 0.6 % (0.0-0.4); Lymphocytes Absolute Auto 1.2 X10*3/uL (1.2-4.9); Lymphocytes Percent Auto 5.8 % (20-40); Mean Corpuscular HGB Conc 31.9 g/dl (31.0-35.0); Mean Corpuscular Hemoglobin 29.3 pg (27.0-33.0); Mean Corpuscular Volume 91.8 fL (80.0-98.0); Mean Platelet Volume 9.6 fL (9.4-12.3); Monocytes Percent Auto 4.8 % (2-11); Neutrophils Absolute Auto 17.2 x10*3/uL (2.0-8.3); Platelet Count 266 X10*3/uL (160-400); Red Blood Count 3.28 X10*6/uL (4.20-5.50); Red Cell Distribution Width 15.9 % (11.0-16.0)
[2021-08-09 07:09] LABS: Glucose, Whole Blood 79 mg/dL (60-115)
[2021-08-09 07:12] LABS: Anion Gap 22 (12-20); Blood Urea Nitrogen 38 mg/dL (9-16); Calcium 8.5 mg/dL (8.4-10.2); Carbon Dioxide 21 mmol/L (22-29); Chloride 91 mmol/L (96-108); Creatinine Clr Calc Pharmacy 5.7; Estimated Glomerular Filt Rate 4; Glucose Random 87 mg/dL (60-115); Potassium 4.8 mmol/L (3.3-5.1); Sodium 129 mmol/L (135-145)
[2021-08-09] MEDS: Fluticasone Propionate 100 MCG BLST.W.DEV 1 PUFF INHALE (08:20)
[2021-08-09] MEDS: Insulin Glargine,Hum.rec.anlog 100 UNIT/ML 10 ML VIAL 14 UNIT SUBCUT (08:21)
[2021-08-09] MEDS: Aspirin Enteric Coated 81 MG TABLET.DR PO (08:23)
[2021-08-09] MEDS: Bumetanide 1 MG TABLET 2 MG PO (08:23)
[2021-08-09] MEDS: Multivitamin TABLET 1 TAB PO (08:23)
[2021-08-09] MEDS: hydrALAZINE HCl 50 MG TABLET PO ×3 (08:24→21:13)
[2021-08-09] MEDS: Omeprazole 20 MG CAPSULE.DR PO (08:24)
[2021-08-09] MEDS: cloNIDine HCL 0.2 MG TABLET PO ×2 (08:24→21:12)
[2021-08-09] MEDS: dilTIAZem HCL CD 180 MG CAP.ER.24H 360 MG PO (08:24)
[2021-08-09] MEDS: Nicotine 21 MG PATCH.TD24 TRANSDERMA (08:25)
[2021-08-09] MEDS: Buprenorphine/Naloxone 8/2 mg FILM 1 FILM SUBLINGUAL ×2 (08:25→21:15)
[2021-08-09] MEDS: Sevelamer Carbonate Tablet 800 MG TABLET PO ×2 (08:25→16:07)
[2021-08-09] MEDS: Pantoprazole Sodium 40 MG/10 ML VIAL IVPUSH (08:26)
[2021-08-09] MEDS: 0.9 % Sodium Chloride Flush 3 ML SYRINGE IVFLUSH (08:27)
[2021-08-09 08:28] LABS: Glucose, Whole Blood 130 mg/dL (60-115)
--- NOTE | 2021-08-09 12:09 | CONS_ITS ---
DATE OF SERVICE: 08/09/2021 REASON FOR CONSULTATION: I was asked to see the patient to assist in evaluation management of patient's dialysis needs in the setting of presenting to the hospital with abdominal pain and bright red blood per rectum. HISTORY OF PRESENT ILLNESS: In summary, she is a 66-year-old ESRD patient normally dialysis Sunday, , Sunday. History of noncompliance. She apparently had some bright red blood per rectum. She has had on and off abdominal pain. She missed her dialysis treatment on Sunday. She had a workup in the emergency room including a CAT scan, which showed some inflammatory changes in the descending colon suggestive of colitis. Overall, she is feeling better since she came to the hospital. PAST MEDICAL HISTORY: Notable for ESRD, dialysis Sunday, , Sunday at the [facility]; anemia; CHF; diabetes; diastolic heart failure; hypertension, and noncompliance. MEDICATIONS ON ADMISSION: Noted, include; aspirin, diltiazem, Bumex, Protonix, Renvela, hydralazine, and insulin. Current medications are on the JUL. SOCIAL HISTORY: She is a smoker. No alcohol or illicit drug use. FAMILY HISTORY: Noncontributory other than hypertension. REVIEW OF SYSTEMS: As noted above. PHYSICAL EXAMINATION: VITAL SIGNS: Blood pressure 134/60 with a heart rate in the 70s. She is afebrile. HEENT: Head is atraumatic and normocephalic. NECK: Supple. Mucous membranes are moist. LUNGS: Breath sounds bilaterally diminished at the bases. CARDIAC: Regular rate and rhythm. ABDOMEN: Soft, nontender. No CVA tenderness. EXTREMITIES: Shows no edema. LABORATORY DATA: Show hemoglobin 9.6, hematocrit 30.1, white blood cell count [id number]. Sodium 129, potassium 4.8, chloride 91, bicarb 21. IMPRESSION: 1. END-STAGE RENAL DISEASE. Patient admitted with bright red blood per rectum and abdominal pain. 2. Bright red blood per rectum. She is having a further workup. CAT scan was abnormal. She will get GI evaluation. Further treatment as needed. 3. End-stage renal disease with dialysis today and keep around Sunday, , Sunday schedule. 4. Anemia. Her hemoglobin seems stable at this time, but we will monitor. 5. Elevated white blood cell count. This will need further evaluation. Concern for infectious colitis has been entertained given the elevated white blood cell count, the abdominal pain, and bright red blood per rectum. SUGGESTIONS: At this time include dialysis today, follow the patient with the team. We will dialyze patient heparin free. We will follow the patient with the team as mentioned above. If she has active bleeding, 1 could give DDAVP, but this does not appear to be the case given her stable hemoglobin. MD BABAK White/GRACIE / [id number]
--- NOTE | 2021-08-09 12:09 | PC.NURSE ---
pt to dialysis
--- NOTE | 2021-08-09 13:00 | PM.GICN ---
History of Present Illness Data of Consult Service Date: 08/09/21 Requesting physician: Robert Torres Primary Care Provider: [facility] Reason for consult: colitis ?66-year-old female with past medical history of ESRD on dialysis (T,T,Sat), CHF, diabetes, hypertension, who I am seeing for assessment for rectal bleeding. Patient had constipation for 5 d prior to admission, and then took OTC laxatives with resultant looser stools and blood noted. Associated w/ diffuse,? constant, 02/27, nonradiating,abdominal pain with nausea and non bloody emesis and abdominal distention. Breathing at baseline, has chronic SOB. I saw her at dialysis and she said her pain is improved, but she still has nausea, she has not passed gas or stool since admission. Labs: WBC count 19.9, hemoglobin of 8.7 with a previous hemoglobin 9.8 on 07/27, sodium of 129 , potassium 4.9, BUN of 33, creatinine of 8.5, magnesium of 2.9, BNP of 2732, Abdominal CT: diffuse mural thickening involving descending and sigmoid colon suggestive of inflammatory or infectious colitis, mesenteric edema, and ground glass lungs, with constipation noted as well. [facility] Past Medical History Medical History Acute kidney injury superimposed on chronic kidney disease VANDANA (acute kidney injury) Anemia in chronic kidney disease CHF (congestive heart failure) Constipation Diabetes mellitus Diastolic congestive heart failure End-stage renal disease (ESRD) Essential hypertension HTN (hypertension) HTN (hypertension) Hypertension Non-compliance Normocytic anemia Family History Family History Other Hypertension Surgical History Surgical History No pertinent past surgical history Social History Social History Household Members: None Housing: Assisted Living Facility Do you presently have visiting nurse or other home services: Yes (visiting nurse/ORTHOTIC/PROSTHETIC PRACTITIONER) Alcohol intake: unknown Patient Tobacco Use Status: Current everyday Tobacco user Tobacco use type: Cigarette Cigarette Packs Per Day: 1 Cigarettes Per Day: 5 Years Smoked: 18 e-Cigarette/Vaping Use: Never Used Second Hand Smoke Exposure: No Substance Use Type: Heroin Advance Directives Date on File: 04/20/21 service: No Current occupational status: disabled Meds Allergies Allergy/AdvReac Type Severity Reaction Status Date / Time No Known Allergies Allergy Mild NOT Verified 12/14/20 11:50 APPLICABLE Active Medications: Current Medications Acetaminophen (Acetaminophen 325 Mg Tablet) 650 mg PO Q6H PRN PRN Reason: Pain, Mild (Pain Scale 1-3) Amlodipine Besylate (Amlodipine Besylate 10 Mg Tablet) 10 mg PO BEDTIME [facility]; Protocol Last Admin: 08/09/21 01:38 Dose: 10 mg Documented by: Aspirin (Aspirin Enteric Coated 81 Mg Tablet.) 81 mg PO DAILY [facility] Last Admin: 08/09/21 08:23 Dose: 81 mg Documented by: Bumetanide (Bumetanide 1 Mg Tablet) 2 mg PO DAILY [facility]; Protocol Last Admin: 08/09/21 08:23 Dose: 2 mg Documented by: Buprenorphine/Naloxone (Buprenorphine/Naloxone 8/2 Mg Film) 1 film SUBLINGUAL BID [facility] Last Admin: 08/09/21 08:25 Dose: 1 film Documented by: Clonidine HCl (Clonidine Hcl 0.2 Mg Tablet) 0.2 mg PO BID [facility]; Protocol Last Admin: 08/09/21 08:24 Dose: 0.2 mg Documented by: Dextrose (Dextrose 50 % 25 Gm/50 Ml Vial) 25 gm IVPUSH Q15M PRN; Protocol PRN Reason: per Hypoglycemia Standing Ord. Diltiazem HCl (Diltiazem Hcl Cd 180 Mg Cap.Er.24h) 360 mg PO DAILY [facility]; Protocol Last Admin: 08/09/21 08:24 Dose: 360 mg Documented by: Epoetin Kateryna (Epoetin Kateryna 10,000 Unit/Ml Vial) 10,000 unit SUBCUT WE@1000 [facility] Fluticasone Propionate (Fluticasone Propionate 100 Mcg Blst.W.Dev) 1 puff INHALE RBID [facility] Last Admin: 08/09/21 08:20 Dose: 1 puff Documented by: Glucose (Glucose Gel 15 Gm Gel..Gram.) 15 gm PO Q15M PRN; Protocol PRN Reason: per Hypoglycemia Standing Ord. Hydralazine HCl (Hydralazine Hcl 50 Mg Tablet) 50 mg PO TID [facility]; Protocol Last Admin: 08/09/21 08:24 Dose: 50 mg Documented by: Piperacillin Sod/Tazobactam (Sod 2.25 gm/ Sodium Chloride) 50 mls @ 100 mls/hr IV Q6H [facility] Last Infusion: 08/09/21 08:50 Dose: Infused Documented by: Vancomycin HCl 500 mg/ Sodium (Chloride) 110 mls @ 110 mls/hr IV TuThSa@2000 [facility] Insulin Glargine (Insulin Glargine,Hum.Rec.Anlog 100 Unit/Ml 10 Ml Vial) 14 unit SUBCUT DAILY [facility] Last Admin: 08/09/21 08:21 Dose: 14 unit Documented by: Insulin Human Lispro (Insulin Lispro 100 Unit/Ml 3 Ml Vial) 0 unit SUBCUT QIDACHS [facility]; Protocol Last Admin: 08/09/21 08:28 Dose: Not Given Documented by: Melatonin (Melatonin 3 Mg Tablet) 6 mg PO BEDTIME PRN PRN Reason: Sleep Morphine Sulfate (Morphine Sulfate 4 Mg/Ml Cartridge) 4 mg IVPUSH Q4H PRN; Protocol PRN Reason: Pain, Severe (Pain Scale 7-10) Multivitamins/Vitamin C (Multivitamin Tablet) 1 tab PO DAILY [facility] Last Admin: 08/09/21 08:23 Dose: 1 tab Documented by: Nicotine (Nicotine 21 Mg Patch.Td24) 21 mg TRANSDERMA DAILY [facility] Last Admin: 08/09/21 08:25 Dose: 21 mg Documented by: Olanzapine (Olanzapine 10 Mg Tablet) 10 mg PO BEDTIME [facility] Omeprazole (Omeprazole 20 Mg Capsule.Dr) 20 mg PO DAILY [facility] Last Admin: 08/09/21 08:24 Dose: 20 mg Documented by: Ondansetron HCl (Ondansetron Hcl 4 Mg/2 Ml Vial) 4 mg IVPUSH Q8H PRN PRN Reason: Nausea and Vomiting Last Admin: 08/09/21 03:41 Dose: 4 mg Documented by: Pantoprazole Sodium (Pantoprazole Sodium 40 Mg/10 Ml Vial) 40 mg IVPUSH DAILY@0630 [facility] Last Admin: 08/09/21 08:26 Dose: 40 mg Documented by: Pharmacy Consult (Consult Rx Vancomycin Dosing) 1 each MISCELLANE DAILY PRN PRN Reason: Consult order Pharmacy Consult (Consult Rx Vancomycin Dosing) 1 each MISCELLANE DAILY PRN PRN Reason: Consult order Sevelamer Carbonate (Sevelamer Carbonate Tablet 800 Mg Tablet) 800 mg PO TIDWM [facility] Last Admin: 08/09/21 08:25 Dose: 800 mg Documented by: Sodium Chloride (0.9 % Sodium Chloride Flush 3 Ml Syringe) 3 ml IVFLUSH QSHIFT [facility] Last Admin: 08/09/21 08:27 Dose: 3 ml Documented by: Tiotropium [place] (Tiotropium [place] 18 Mcg Cap.W.Dev) 1 puff INHALE DAILY [facility] Last Admin: 08/09/21 08:20 Dose: 1 puff Documented by: Triamcinolone Acetonide (Triamcinolone Acet 0.025 % Cream 15 Gm Tube) 1 appl TOPICAL BID [facility]; Protocol Last Admin: 08/09/21 10:38 Dose: Not Given Documented by: Home Medications Medication Instructions Recorded Confirmed Last Taken Type aspirin 81 mg tablet,delayed 81 mg PO DAILY 10/22/20 08/08/21 Unknown History release buprenorphine 8 mg-naloxone 2 mg 1 strip SUBLINGUAL BID 10/22/20 08/08/21 Unknown History sublingual film (Suboxone) diltiazem HCl 180 mg 360 mg PO DAILY 10/22/20 08/08/21 Unknown History capsule,extended release 24 hr tiotropium bromide 18 mcg capsule 1 cap INHALATION DAILY 10/22/20 08/08/21 Unknown History with inhalation device (Spiriva with HandiHaler) olanzapine 10 mg tablet 10 mg PO BEDTIME 02/25/21 08/08/21 Unknown History bumetanide 2 mg tablet 2 mg PO DAILY 04/15/21 08/08/21 Unknown History fluticasone propionate 110 1 puff INHALATION BID 04/15/21 08/08/21 Unknown History mcg/actuation HFA aerosol inhaler (Flovent HFA) melatonin 5 mg tablet 5 mg PO BEDTIME PRN 04/15/21 08/08/21 Unknown History pantoprazole 40 mg tablet,delayed 40 mg PO DAILY 04/15/21 08/08/21 Unknown History release vitamin B comp no.3-folic acid 1 1 tab PO DAILY 04/15/21 08/08/21 Unknown History mg-vit C 60 mg-biotin 300 mcg tablet (VINYL [employer]) epoetin kateryna-epbx 10,000 unit/mL 10,000 unit SUBCUT WE@1000 05/11/21 08/08/21 Unknown History injection solution (Retacrit) sennosides 8.6 mg tablet (senna) 1 - 2 tab PO BEDTIME PRN 05/11/21 08/08/21 Unknown History acetaminophen 500 mg tablet 500 mg PO Q8H PRN 06/10/21 08/08/21 Unknown History sevelamer carbonate 800 mg tablet 800 mg PO TID 06/10/21 08/08/21 Unknown History triamcinolone acetonide 0.025 % 1 appl TOPICAL BID 06/10/21 08/08/21 Unknown History topical cream nicotine 21 mg/24 hr daily 1 patch TOPICAL DAILY 06/18/21 08/08/21 Unknown History transdermal patch clonidine HCl 0.2 mg tablet 0.2 mg PO BID 07/27/21 08/08/21 Unknown History hydralazine 50 mg tablet 1 tab PO TID 07/27/21 08/08/21 Unknown History insulin aspart U-100 100 unit/mL 1 sliding scale dose SUBCUT 07/27/21 08/08/21 Unknown History subcutaneous cartridge (Novolog USEASDIRECTD PenFill U-100 Insulin aspart) trazodone 100 mg tablet 1 - 2 tab PO BEDTIME PRN 08/08/21 08/08/21 Unknown History Physical Exam Vital Signs: Vital Signs: Last Vital Signs Temp 98.7 F 08/09/21 08:51 Pulse 69 08/09/21 08:51 Resp 18 08/09/21 08:51 BP 134/62 08/09/21 08:51 Pulse Ox 98 08/09/21 08:51 BMI result Body Mass Index 32.5 EXAM: GENERAL: The patient is frail and weak, on dialysis VITAL SIGNS:see workflow HEENT: Nonicteric sclerae, PERRLA, EOMI. Oropharynx clear. Moist mucous membranes. Conjunctivae appear well perfused. No thyroid mass. CHEST: Chest wall is nontender. HEART: Regular rate and rhythm without murmurs. LUNGS: Clear to auscultation bilaterally. ABDOMEN: Soft, reduced bowel sounds, tender mid abdomen, no organomegaly.no flank tenderness, abdomen is distended SKIN: No rash, no excessive bruising, petechiae, or purpura. NEUROLOGIC: Cranial nerves II-XII intact without motor/sensory deficit. Psych: Appearance: grossly normal Results Labs CBC & Chem 7: 08/09/21 06:42 08/09/21 06:42 Labs: Short CBC 08/08/21 08/09/21 Range/Units 16:11 06:42 WBC 19.9 H 20.0 H (4.8-10.8) X10*3/uL Hgb 8.7 L 9.6 L (12.0-16.0) g/dl Hct 27.8 L 30.1 L (37.0-47.0) % Plt Count 239 266 (160-400) X10*3/uL BMP 08/08/21 08/09/21 16:11 06:42 Sodium 129 L 129 L Potassium 4.9 D 4.8 Chloride 91 L 91 L Carbon Dioxide 23 21 L BUN 33 H D 38 H Creatinine 8.50 H* 9.24 H* Calcium 8.4 D 8.5 Liver Function 08/08/21 Range/Units 16:11 Total Bilirubin 0.4 (0.0-1.0) mg/dL AST 26 (5-31) U/L ALT 17 (0-31) U/L Alkaline Phosphatase 130 H (39-117) U/L Albumin 3.5 (3.5-5.0) g/dL Imaging CT scan - abdomen: Attestation: I personally reviewed and interpreted this imaging study as follows: My impression: left sided colon swollen, enhanced mucosa, stranding and fluid noted Assessment and Plan (1) Ischemic colitis: Status: Acute Plan 1/ Clinical picture most consistent with ischemic colitis, caused by constipation, possibl by low flow state during dialysis as well or over aggressive BP control ddx; infectious colitis, c diff, IBD PLAN: 1/ Avoid over aggressive BP control 2/ ABx with flagyl and cipro 3/ if diarrhea then check stool c/s and c diff 4/ avoid nsaids 5/ if no improvement then limited unprepped sigmoidoscopy with bx 6/ in longer term also need to avoid constipation, ensure on scheduled miralax once or twice daily with stool softener Procedures Date of Service Date of Service: 08/09/21
--- NOTE | 2021-08-09 13:25 | P.PNIM_ITS ---
Subjective Subjective Date of Service: 08/09/21 Review of Systems Follow up colitis, gi bleed no pain, no more bleeding Physical Exam Vital Signs: Vital Signs: Last Vital Signs Temp 98.7 F 08/09/21 08:51 Pulse 69 08/09/21 08:51 Resp 18 08/09/21 08:51 BP 134/62 08/09/21 08:51 Pulse Ox 98 08/09/21 08:51 BMI result Body Mass Index 32.5 Appearing in no acute distress lung sounds dim heart regular rate rhythm, clear S1, S2 positive bowel sounds, abdomen is soft, nontender neuro patient is alert x3, no focal deficits Objective Data Active Medications Acetaminophen (Acetaminophen 325 Mg Tablet) 650 mg PO Q6H PRN PRN Reason: Pain, Mild (Pain Scale 1-3) Amlodipine Besylate (Amlodipine Besylate 10 Mg Tablet) 10 mg PO BEDTIME PHAN; Pr otocol Last Admin: 08/09/21 01:38 Dose: 10 mg Documented by: FARA Aspirin (Aspirin Enteric Coated 81 Mg Tablet.Dr) 81 mg PO DAILY [facility] Last Admin: 08/09/21 08:23 Dose: 81 mg Documented by: TYRESE Bumetanide (Bumetanide 1 Mg Tablet) 2 mg PO DAILY [facility]; Protocol Last Admin: 08/09/21 08:23 Dose: 2 mg Documented by: TYRESE Buprenorphine/Naloxone (Buprenorphine/Naloxone 8/2 Mg Film) 1 film SUBLINGUAL BID [facility] Last Admin: 08/09/21 08:25 Dose: 1 film Documented by: TYRESE Clonidine HCl (Clonidine Hcl 0.2 Mg Tablet) 0.2 mg PO BID [facility]; Protocol Last Admin: 08/09/21 08:24 Dose: 0.2 mg Documented by: TYRESE Dextrose (Dextrose 50 % 25 Gm/50 Ml Vial) 25 gm IVPUSH Q15M PRN; Protocol PRN Reason: per Hypoglycemia Standing Ord. Diltiazem HCl (Diltiazem Hcl Cd 180 Mg Cap.Er.24h) 360 mg PO DAILY [facility]; Kathi col Last Admin: 08/09/21 08:24 Dose: 360 mg Documented by: TYRESE Epoetin Fabricio (Epoetin Fabricio 10,000 Unit/Ml Vial) 10,000 unit SUBCUT WE@1000 [facility] Fluticasone Propionate (Fluticasone Propionate 100 Mcg Blst.W.Dev) 1 puff INHALE RBID [facility] Last Admin: 08/09/21 08:20 Dose: 1 puff Documented by: CLARISSA Glucose (Glucose Gel 15 Gm Gel..Gram.) 15 gm PO Q15M PRN; Protocol PRN Reason: per Hypoglycemia Standing Ord. Hydralazine HCl (Hydralazine Hcl 50 Mg Tablet) 50 mg PO TID [facility]; Protocol Last Admin: 08/09/21 08:24 Dose: 50 mg Documented by: TYRESE Piperacillin Sod/Tazobactam (Sod 2.25 gm/ Sodium Chloride) 50 mls @ 100 mls/hr IV Q6H [facility] Last Infusion: 08/09/21 08:50 Dose: 0 mls/hr Documented by: MATT Vancomycin HCl 500 mg/ Sodium (Chloride) 110 mls @ 110 mls/hr IV TuThSa@2000 [facility] Insulin Glargine (Insulin Glargine,Hum.Rec.Anlog 100 Unit/Ml 10 Ml Vial) 14 unit SUBCUT DAILY [facility] Last Admin: 08/09/21 08:21 Dose: 14 unit Documented by: TYRESE Insulin Human Lispro (Insulin Lispro 100 Unit/Ml 3 Ml Vial) 0 unit SUBCUT QIDACHS [facility]; Protocol Last Admin: 08/09/21 08:28 Dose: Not Given Documented by: TYRESE Non-Admin Reason: No Insulin Coverage Melatonin (Melatonin 3 Mg Tablet) 6 mg PO BEDTIME PRN PRN Reason: Sleep Morphine Sulfate (Morphine Sulfate 4 Mg/Ml Cartridge) 4 mg IVPUSH Q4H PRN; Protocol PRN Reason: Pain, Severe (Pain Scale 7-10) Multivitamins/Vitamin C (Multivitamin Tablet) 1 tab PO DAILY [facility] Last Admin: 08/09/21 08:23 Dose: 1 tab Documented by: TYRESE Nicotine (Nicotine 21 Mg Patch.Td24) 21 mg TRANSDERMA DAILY [facility] Last Admin: 08/09/21 08:25 Dose: 21 mg Documented by: TYRESE Olanzapine (Olanzapine 10 Mg Tablet) 10 mg PO BEDTIME [facility] Omeprazole (Omeprazole 20 Mg Capsule.Dr) 20 mg PO DAILY [facility] Last Admin: 08/09/21 08:24 Dose: 20 mg Documented by: TYRESE Ondansetron HCl (Ondansetron Hcl 4 Mg/2 Ml Vial) 4 mg IVPUSH Q8H PRN PRN Reason: Nausea and Vomiting Last Admin: 08/09/21 03:41 Dose: 4 mg Documented by: SHAHEED Pantoprazole Sodium (Pantoprazole Sodium 40 Mg/10 Ml Vial) 40 mg IVPUSH DAILY@0630 [facility] Last Admin: 08/09/21 08:26 Dose: 40 mg Documented by: TYRESE Pharmacy Consult (Consult Rx Vancomycin Dosing) 1 each MISCELLANE DAILY PRN PRN Reason: Consult order Pharmacy Consult (Consult Rx Vancomycin Dosing) 1 each MISCELLANE DAILY PRN PRN Reason: Consult order Sevelamer Carbonate (Sevelamer Carbonate Tablet 800 Mg Tablet) 800 mg PO TIDWM [facility] Last Admin: 08/09/21 08:25 Dose: 800 mg Documented by: TYRESE Sodium Chloride (0.9 % Sodium Chloride Flush 3 Ml Syringe) 3 ml IVFLUSH QSHIFT [facility] Last Admin: 08/09/21 08:27 Dose: 3 ml Documented by: TYRESE Tiotropium [place] (Tiotropium [place] 18 Mcg Cap.W.Dev) 1 puff INHALE DAILY [facility] Last Admin: 08/09/21 08:20 Dose: 1 puff Documented by: CLARISSA Triamcinolone Acetonide (Triamcinolone Acet 0.025 % Cream 15 Gm Tube) 1 appl TOPICAL BID [facility]; Protocol Last Admin: 08/09/21 10:38 Dose: Not Given Documented by: TYRESE Non-Admin Reason: Patient Refused Labs CBC & Chem 7: 08/09/21 06:42 08/09/21 06:42 Labs: Laboratory Results - last 24 hr 08/08/21 08/08/21 08/08/21 15:55 15:56 16:11 MCV 92.1 MCH 28.8 MCHC 31.3 RDW 15.7 Plt Count 239 MPV 9.9 Immature Gran % (Auto) 0.4 Neut % (Auto) 83.9 H Lymph % (Auto) 7.8 L [place] % (Auto) 5.7 Eos % (Auto) 2.0 Baso % (Auto) 0.2 Lymph # (Auto) 1.6 [place] # (Auto) 1.1 Eos # (Auto) 0.4 Baso # (Auto) 0.0 Abs Immat Gran (auto) 0.08 H Absolute Neuts (auto) 16.7 H Absolute Nucleated RBC 0.000 Nucleated RBC % (auto) 0.0 PT INR Anion Gap Estim Creat Clear Calc Estimated GFR POC Glucose Random Glucose Lactic Acid Calcium Magnesium Total Bilirubin AST ALT Alkaline Phosphatase B-Natriuretic Peptide Total Protein Albumin Lipase Stool Occult Blood POSITIVE COVID-19 (KRYSTINA) Negative COVID-19 Clin Com See Note Blood Type Antibody Screen 08/08/21 08/08/21 08/08/21 16:11 16:11 16:11 MCV MCH MCHC RDW Plt Count MPV Immature Gran % (Auto) Neut % (Auto) Lymph % (Auto) [place] % (Auto) Eos % (Auto) Baso % (Auto) Lymph # (Auto) [place] # (Auto) Eos # (Auto) Baso # (Auto) Abs Immat Gran (auto) Absolute Neuts (auto) Absolute Nucleated RBC Nucleated RBC % (auto) PT 10.8 INR 1.0 Anion Gap 20 Estim Creat Clear Calc 6.2 Estimated GFR 5 POC Glucose Random Glucose 98 Lactic Acid Calcium 8.4 D Magnesium 2.9 H Total Bilirubin 0.4 AST 26 ALT 17 Alkaline Phosphatase 130 H B-Natriuretic Peptide 2732 H Total Protein 6.2 L Albumin 3.5 Lipase 11 Stool Occult Blood COVID-19 (KRYSTINA) COVID-19 Clin Com Blood Type Antibody Screen 08/08/21 08/08/21 08/09/21 16:45 18:30 06:42 MCV 91.8 MCH 29.3 MCHC 31.9 RDW 15.9 Plt Count 266 MPV 9.6 Immature Gran % (Auto) 0.6 H Neut % (Auto) 86.0 H Lymph % (Auto) 5.8 L [place] % (Auto) 4.8 Eos % (Auto) 2.6 Baso % (Auto) 0.2 Lymph # (Auto) 1.2 [place] # (Auto) 1.0 Eos # (Auto) 0.5 H Baso # (Auto) 0.0 Abs Immat Gran (auto) 0.12 H Absolute Neuts (auto) 17.2 H Absolute Nucleated RBC 0.000 Nucleated RBC % (auto) 0.0 PT INR Anion Gap Estim Creat Clear Calc Estimated GFR POC Glucose Random Glucose Lactic Acid 0.6 Calcium Magnesium Total Bilirubin AST ALT Alkaline Phosphatase B-Natriuretic Peptide Total Protein Albumin Lipase Stool Occult Blood COVID-19 (KRYSTINA) COVID-19 Clin Com Blood Type O Positive Antibody Screen NEGATIVE 08/09/21 08/09/21 08/09/21 06:42 07:01 08:25 MCV MCH MCHC RDW Plt Count MPV Immature Gran % (Auto) Neut % (Auto) Lymph % (Auto) [place] % (Auto) Eos % (Auto) Baso % (Auto) Lymph # (Auto) [place] # (Auto) Eos # (Auto) Baso # (Auto) Abs Immat Gran (auto) Absolute Neuts (auto) Absolute Nucleated RBC Nucleated RBC % (auto) PT INR Anion Gap 22 H Estim Creat Clear Calc 5.7 Estimated GFR 4 POC Glucose 79 130 H Random Glucose 87 Lactic Acid Calcium 8.5 Magnesium Total Bilirubin AST ALT Alkaline Phosphatase B-Natriuretic Peptide Total Protein Albumin Lipase Stool Occult Blood COVID-19 (KRYSTINA) COVID-19 Clin Com Blood Type Antibody Screen Assessment and Plan (1) Acute GI bleeding: Status: Acute Plan this is a 66-year-old female with past medical history of ESRD on dialysis not compliant,? CHF presents to the hospital with multiple complaints found to have positive GI bleed, as well as cellulitis and colitis GI bleed secondary to ischemic colitis hemodynamically stable, no significant drop in hemoglobin, as stool occult positive no evidence of? bleeding diverticulitis on abdominal CT CT abdomen as seen above with is mural thickening involving descending and sigmoid colon will trend H&H pantoprazole 40 IV b.i.d. GI following Follow cultures Continue Zosyn anterior abdominal wall cellulitis no evidence of skin infection on exam will treat with IV antibiotics as above follow cultures ID consult HCAP patient found to be hypoxic O2 dropping to 89% on room air evidence of pneumonia on chest x-ray with bilateral ground-glass attenuation will treat with broad-spectrum? IV antibiotics given recent hospital admission follow cultures ESRD on dialysis noncompliant potassium within normal limits Dialysis today hyponatremia chronic follow BMP Elevated troponin chronically elevated likely type 2 in the setting of ESRD as well as GI bleed and acute infection monitor acute on chronic HFpEF patient is in volume overload she does produce slight amount of urine will add IV Lasix? which discontinued once patient receives her dialysis DVT prophylaxis:? SCDs Attending Dr. Combs Full code Patient requires continued hospitalization due toAs patient is requiring further examination by GI, possible colonoscopy and is requiring IV Lasix at this time. Quality Stroke Does the patient have a stroke diagnosis?: No VTE Prior VTE?: No VTE Risk Level:: Medical - moderate - high VTE Device Contraindication: N/A - Device Ordered VTE Drug Contraindication: Treatment Not Indicated
--- NOTE | 2021-08-09 14:23 | PC.NURSE ---
attempted to call in report to RN - will call back when available.
--- NOTE | 2021-08-09 16:16 | PC.NURSE ---
Patient arrived from Dialysis. Patient alert and oriented x 3. Patient has right chest permacath dressing clean, dry and intact. Patients poc-111. Patient refused clear liquid diet states I want to eat tigered Samir TAYLOR. Patient denies chest pain, sob, and dizziness. bp elevated at 173/66 medicated with hydralizine. tele: sinus rythym 70's. Will continue to monitor.
[2021-08-09] MEDS: Acetaminophen 325 MG TABLET 650 MG PO (18:19)
[2021-08-09 18:30] LABS: Vancomycin Random 8.4 mcg/mL (15-20)
[2021-08-09 18:30] LABS: Glucose, Whole Blood 198 mg/dL (60-115)
[2021-08-09 18:30] LABS: Glucose, Whole Blood 111 mg/dL (60-115)
--- NOTE | 2021-08-09 18:49 | HE.PHANOTE ---
RE: Vancomycin Patient post dialysis trough is 8.4. Will increase dose to 1000mg TUTHSA after dialysis. Next trough is Th after dialysis at 1800. Thanks Steve
[2021-08-09 20:45] LABS: Glucose, Whole Blood 167 mg/dL (60-115)
[2021-08-09] MEDS: Insulin Lispro 100 UNIT/ML 3 ML VIAL SUBCUT (21:11)
[2021-08-09] MEDS: OLANZapine 10 MG TABLET PO (21:12)
[2021-08-09] MEDS: vancomycin HCL 1,000 MG in 0.9 % Sodium Chloride 250 ML 270 MG IV (21:15)
[2021-08-10] VITALS (8 sets, daily range): BP systolic 119–155; BP diastolic 61–75; PULSE 49–69; RESP 16–18; TEMP 35.9–36.4; O2SAT 94–98; BMI 31.4
[2021-08-10] MEDS: Piperacillin Sodium/Tazobactam 2.25 GM in 0.9 % Sodium Chloride 50 ML IV ×2 (03:25→07:40)
[2021-08-10] MEDS: Pantoprazole Sodium 40 MG/10 ML VIAL IVPUSH (06:42)
[2021-08-10 06:58] LABS: Hematocrit 25.6 % (37.0-47.0); Hemoglobin 8.1 g/dl (12.0-16.0); Mean Corpuscular HGB Conc 31.6 g/dl (31.0-35.0); Mean Corpuscular Hemoglobin 29.3 pg (27.0-33.0); Mean Corpuscular Volume 92.8 fL (80.0-98.0); Mean Platelet Volume 10.1 fL (9.4-12.3); Platelet Count 226 X10*3/uL (160-400); Red Blood Count 2.76 X10*6/uL (4.20-5.50); Red Cell Distribution Width 15.7 % (11.0-16.0); White Blood Count 9.8 X10*3/uL (4.8-10.8)
[2021-08-10 07:20] LABS: Anion Gap 17 (12-20); B Type Natriuretic Peptide 1186 pg/mL (<100); Blood Urea Nitrogen 18 mg/dL (9-16); Calcium 7.9 mg/dL (8.4-10.2); Carbon Dioxide 22 mmol/L (22-29); Chloride 95 mmol/L (96-108); Creatinine Clr Calc Pharmacy 9.7; Estimated Glomerular Filt Rate 8; Glucose Random 119 mg/dL (60-115); Potassium 4.6 mmol/L (3.3-5.1); Sodium 129 mmol/L (135-145)
[2021-08-10] MEDS: Fluticasone Propionate 100 MCG BLST.W.DEV 1 PUFF INHALE ×2 (07:25→19:34)
[2021-08-10] MEDS: 0.9 % Sodium Chloride Flush 3 ML SYRINGE IVFLUSH ×3 (07:40→23:52)
[2021-08-10] MEDS: Sevelamer Carbonate Tablet 800 MG TABLET PO ×3 (07:44→16:59)
[2021-08-10 07:53] LABS: Glucose, Whole Blood 93 mg/dL (60-115)
[2021-08-10] MEDS: Nicotine 21 MG PATCH.TD24 TRANSDERMA ×2 (09:43→14:21)
[2021-08-10] MEDS: cloNIDine HCL 0.2 MG TABLET PO ×2 (09:44→20:33)
[2021-08-10] MEDS: Omeprazole 20 MG CAPSULE.DR PO (09:44)
[2021-08-10] MEDS: Bumetanide 1 MG TABLET 2 MG PO (09:45)
[2021-08-10] MEDS: hydrALAZINE HCl 50 MG TABLET PO ×2 (09:45→20:33)
[2021-08-10] MEDS: Buprenorphine/Naloxone 8/2 mg FILM 1 FILM SUBLINGUAL ×2 (09:45→20:33)
[2021-08-10] MEDS: Aspirin Enteric Coated 81 MG TABLET.DR PO (09:45)
[2021-08-10] MEDS: Multivitamin TABLET 1 TAB PO (09:45)
[2021-08-10] MEDS: polyethylene glycoL 3350 17 GM POWD.PACK PO (09:46)
[2021-08-10] MEDS: levoFLOXacin/D5W 750 MG/150 ML PIGGYBACK 100 MG IV (09:57)
[2021-08-10] MEDS: Triamcinolone Acet 0.025 % Cream 15 GM TUBE 1 APPL TOPICAL (10:01)
--- NOTE | 2021-08-10 11:01 | P.PNIM_ITS ---
Subjective Subjective Date of Service: 08/10/21 Review of Systems Follow up Abdominal pain No further diarrhea or bleeding Sitting in bed crying that she wants to eat Physical Exam Vital Signs: Vital Signs: Last Vital Signs Temp 97.0 F 08/10/21 07:33 Pulse 52 08/10/21 07:33 Resp 18 08/10/21 07:33 BP 149/65 H 08/10/21 07:33 Pulse Ox 94 08/10/21 07:33 BMI result Body Mass Index 31.4 Appearing in no acute distress lung sounds are clear to auscultation heart regular rate rhythm, clear S1, S2 positive bowel sounds, abdomen is soft, nontender neuro patient is alert x3, no focal deficits Objective Data Active Medications Acetaminophen (Acetaminophen 325 Mg Tablet) 650 mg PO Q6H PRN PRN Reason: Pain, Mild (Pain Scale 1-3) Last Admin: 08/09/21 18:19 Dose: 650 mg Documented by: KAT Amlodipine Besylate (Amlodipine Besylate 10 Mg Tablet) 10 mg PO BEDTIME [facility]; Protocol Last Admin: 08/09/21 21:12 Dose: 10 mg Documented by: JAYLEN Aspirin (Aspirin Enteric Coated 81 Mg Tablet.Dr) 81 mg PO DAILY [facility] Last Admin: 08/10/21 09:45 Dose: 81 mg Documented by: HILARIO Bumetanide (Bumetanide 1 Mg Tablet) 2 mg PO DAILY [facility]; Protocol Last Admin: 08/10/21 09:45 Dose: 2 mg Documented by: HILARIO Buprenorphine/Naloxone (Buprenorphine/Naloxone 8/2 Mg Film) 1 film SUBLINGUAL BID [facility] Last Admin: 08/10/21 09:45 Dose: 1 film Documented by: HILARIO Clonidine HCl (Clonidine Hcl 0.2 Mg Tablet) 0.2 mg PO BID [facility]; Protocol Last Admin: 08/10/21 09:44 Dose: 0.2 mg Documented by: HILARIO Dextrose (Dextrose 50 % 25 Gm/50 Ml Vial) 25 gm IVPUSH Q15M PRN; Protocol PRN Reason: per Hypoglycemia Standing Ord. Diltiazem HCl (Diltiazem Hcl Cd 180 Mg Cap.Er.24h) 360 mg PO DAILY [facility]; Protocol Last Admin: 08/10/21 09:45 Dose: Not Given Documented by: HILARIO Non-Admin Reason: Decreased Heart Rate Epoetin Fabricio (Epoetin Fabricio 10,000 Unit/Ml Vial) 10,000 unit SUBCUT WE@1000 [facility] Fluticasone Propionate (Fluticasone Propionate 100 Mcg Blst.W.Dev) 1 puff INHALE RBID [facility] Last Admin: 08/10/21 07:25 Dose: 1 puff Documented by: CLARISSA Glucose (Glucose Gel 15 Gm Gel..Gram.) 15 gm PO Q15M PRN; Protocol PRN Reason: per Hypoglycemia Standing Ord. Hydralazine HCl (Hydralazine Hcl 50 Mg Tablet) 50 mg PO TID [facility]; Protocol Last Admin: 08/10/21 09:45 Dose: 50 mg Documented by: HILARIO Metronidazole (Flagyl) 500 mg in 100 mls @ 100 mls/hr IV Q8H [facility] Levofloxacin (Levaquin) 500 mg in 100 mls @ 100 mls/hr IV Q48H [facility] Insulin Glargine (Insulin Glargine,Hum.Rec.Anlog 100 Unit/Ml 10 Ml Vial) 14 unit SUBCUT DAILY [facility] Last Admin: 08/10/21 10:39 Dose: Not Given Documented by: HILARIO Non-Admin Reason: refused to eat breakfast Insulin Human Lispro (Insulin Lispro 100 Unit/Ml 3 Ml Vial) 0 unit SUBCUT QIDACHS [facility]; Protocol Last Admin: 08/10/21 08:03 Dose: Not Given Documented by: HILARIO Non-Admin Reason: No Insulin Coverage Melatonin (Melatonin 3 Mg Tablet) 6 mg PO BEDTIME PRN PRN Reason: Sleep Morphine Sulfate (Morphine Sulfate 4 Mg/Ml Cartridge) 4 mg IVPUSH Q4H PRN; Protocol PRN Reason: Pain, Severe (Pain Scale 7-10) Multivitamins/Vitamin C (Multivitamin Tablet) 1 tab PO DAILY [facility] Last Admin: 08/10/21 09:45 Dose: 1 tab Documented by: HILARIO Nicotine (Nicotine 21 Mg Patch.Td24) 21 mg TRANSDERMA DAILY [facility] Last Admin: 08/10/21 09:43 Dose: 21 mg Documented by: HILARIO Olanzapine (Olanzapine 10 Mg Tablet) 10 mg PO BEDTIME [facility] Last Admin: 08/09/21 21:12 Dose: 10 mg Documented by: JAYLEN Omeprazole (Omeprazole 20 Mg Capsule.) 20 mg PO DAILY [facility] Last Admin: 08/10/21 09:44 Dose: 20 mg Documented by: HILARIO Ondansetron HCl (Ondansetron Hcl 4 Mg/2 Ml Vial) 4 mg IVPUSH Q8H PRN PRN Reason: Nausea and Vomiting Last Admin: 08/09/21 03:41 Dose: 4 mg Documented by: SHAHEED Pantoprazole Sodium (Pantoprazole Sodium 40 Mg/10 Ml Vial) 40 mg IVPUSH DAILY@0630 [facility] Last Admin: 08/10/21 06:42 Dose: 40 mg Documented by: JAYLEN Pharmacy Consult (Consult Rx Vancomycin Dosing) 1 each MISCELLANE DAILY PRN PRN Reason: Consult order Pharmacy Consult (Consult Rx Vancomycin Dosing) 1 each MISCELLANE DAILY PRN PRN Reason: Consult order Polyethylene Glycol (Polyethylene Glycol 3350 17 Gm Powd.Pack) 17 gm PO DAILY [facility] Last Admin: 08/10/21 09:46 Dose: 17 gm Documented by: HILARIO Sevelamer Carbonate (Sevelamer Carbonate Tablet 800 Mg Tablet) 800 mg PO TIDWM [facility] Last Admin: 08/10/21 07:44 Dose: 800 mg Documented by: HILARIO Sodium Chloride (0.9 % Sodium Chloride Flush 3 Ml Syringe) 3 ml IVFLUSH QSHIFT [facility] Last Admin: 08/10/21 07:40 Dose: 3 ml Documented by: HILARIO Tiotropium Culver (Tiotropium Culver 18 Mcg Cap.W.Dev) 1 puff INHALE DAILY [facility] Last Admin: 08/10/21 07:25 Dose: 1 puff Documented by: CLARISSA Triamcinolone Acetonide (Triamcinolone Acet 0.025 % Cream 15 Gm Tube) 1 appl TOPICAL BID [facility]; Protocol Last Admin: 08/10/21 10:01 Dose: 1 appl Documented by: HILARIO Labs CBC & Chem 7: 08/10/21 06:30 08/10/21 06:30 Labs: Laboratory Results - last 24 hr 08/09/21 08/09/21 08/09/21 16:05 17:48 18:18 MCV MCH MCHC RDW Plt Count MPV Absolute Nucleated RBC Nucleated RBC % (auto) Anion Gap Estim Creat Clear Calc Estimated GFR POC Glucose 111 198 H Random Glucose Calcium B-Natriuretic Peptide Random Vancomycin 8.4 L 08/09/21 08/10/21 08/10/21 20:39 06:30 06:30 MCV 92.8 MCH 29.3 MCHC 31.6 RDW 15.7 Plt Count 226 MPV 10.1 Absolute Nucleated RBC 0.000 Nucleated RBC % (auto) 0.0 Anion Gap 17 Estim Creat Clear Calc 9.7 Estimated GFR 8 POC Glucose 167 H Random Glucose 119 H Calcium 7.9 L D B-Natriuretic Peptide Random Vancomycin 08/10/21 08/10/21 06:30 07:38 MCV MCH MCHC RDW Plt Count MPV Absolute Nucleated RBC Nucleated RBC % (auto) Anion Gap Estim Creat Clear Calc Estimated GFR POC Glucose 93 Random Glucose Calcium B-Natriuretic Peptide 1186 H Random Vancomycin Microbiology Microbiology Results: Microbiology 08/08/21 18:40 Blood Culture - Preliminary Blood - Venous No growth after 24 hours. 08/08/21 18:31 Blood Culture - Preliminary Blood - Venous No growth after 24 hours. Assessment and Plan (1) Ischemic colitis: Status: Acute Plan this is a 66-year-old female with past medical history of ESRD on dialysis not compliant,? CHF presents to the hospital with multiple complaints found to have positive GI bleed, as well as cellulitis and colitis GI bleed?secondary to ischemic colitis hemodynamically stable, no significant drop in hemoglobin, as stool occult positive no evidence of? bleeding diverticulitis on abdominal CT CT abdomen as seen above with is mural thickening involving descending and sigmoid colon will trend H&H pantoprazole 40 IV b.i.d. GI following Follow cultures Levaquin and flagyl anterior abdominal wall cellulitis no evidence of skin infection on exam follow cultures HCAP, less likely patient found to be hypoxic O2 dropping to 89% on room air, no further hypoxia bilateral ground-glass attenuation likely from chronic lung disease follow cultures ESRD on dialysis noncompliant potassium within normal limits Dialysis hyponatremia chronic follow BMP Elevated troponin chronically elevated likely type 2 in the setting of ESRD as well as GI bleed and acute infection monitor acute on chronic HFpEF. Stable patient is in volume overload she does produce slight amount of urine DVT prophylaxis:? SCDs Attending Dr. Combs Full code Patient? requires continued hospitalization as patient is requiring IV antibiotics for ischemic colitis. Quality Stroke Does the patient have a stroke diagnosis?: No VTE Prior VTE?: No VTE Risk Level:: Medical - moderate - high VTE Device Contraindication: N/A - Device Ordered VTE Drug Contraindication: Treatment Not Indicated
[2021-08-10] MEDS: metroNIDAZOLE/NS 500 MG/100 ML PIGGYBACK 100 MG IV ×3 (11:31→23:52)
[2021-08-10 11:42] LABS: Glucose, Whole Blood 131 mg/dL (60-115)
[2021-08-10 16:47] LABS: Glucose, Whole Blood 110 mg/dL (60-115)
--- NOTE | 2021-08-10 18:47 | PM.PNNEP ---
Subjective Subjective Date of Service: 08/10/21 Principal diagnosis: esrd Interval history: seen and examined, events noted Physical Exam Vital Signs: Vital Signs: Last Vital Signs Temp 97.6 F 08/10/21 16:00 Pulse 60 08/10/21 16:00 Resp 18 08/10/21 16:00 BP 155/69 H 08/10/21 16:00 Pulse Ox 98 08/10/21 16:00 BMI result Body Mass Index 31.4 Const: General: cooperative and no acute distress Orientation/consciousness: patient oriented x3 Eyes: General: appearance normal, both eyes and all related structures Pupils: Equal, round and reactive pupils present Resp: Effort & Inspection: normal respiratory effort Auscultation: clear to auscultation bilaterally Cardio: Rate: regular rate Rhythm: regular rhythm GI: Other: abdomen is 3+ distended, significant tenderness on palpation, even slight palpation of abdomen causes significant pain throughout the abdomen Skin: General skin exam: no rashes or lesions noted Neuro: General: patient oriented x3 Cranial nerves: Yes Equal, round and reactive pupils present Extrem: Other: 2+ nonpitting lower extremity edema General: Yes normal to inspection and Yes no pedal edema Psych: Appearance: grossly normal Objective Data Labs CBC & Chem 7: 08/10/21 06:30 08/10/21 06:30 Labs: Laboratory Results - last 24 hr 08/09/21 08/10/21 08/10/21 20:39 06:30 06:30 WBC 9.8 RBC 2.76 L Hgb 8.1 L Hct 25.6 L MCV 92.8 MCH 29.3 MCHC 31.6 RDW 15.7 Plt Count 226 MPV 10.1 Absolute Nucleated RBC 0.000 Nucleated RBC % (auto) 0.0 Sodium 129 L Potassium 4.6 Chloride 95 L Carbon Dioxide 22 Anion Gap 17 BUN 18 H D Creatinine 5.36 H* Estim Creat Clear Calc 9.7 Estimated GFR 8 POC Glucose 167 H Random Glucose 119 H Calcium 7.9 L D B-Natriuretic Peptide 08/10/21 08/10/21 08/10/21 06:30 07:38 11:21 WBC RBC Hgb Hct MCV MCH MCHC RDW Plt Count MPV Absolute Nucleated RBC Nucleated RBC % (auto) Sodium Potassium Chloride Carbon Dioxide Anion Gap BUN Creatinine Estim Creat Clear Calc Estimated GFR POC Glucose 93 131 H Random Glucose Calcium B-Natriuretic Peptide 1186 H 08/10/21 16:32 WBC RBC Hgb Hct MCV MCH MCHC RDW Plt Count MPV Absolute Nucleated RBC Nucleated RBC % (auto) Sodium Potassium Chloride Carbon Dioxide Anion Gap BUN Creatinine Estim Creat Clear Calc Estimated GFR POC Glucose 110 Random Glucose Calcium B-Natriuretic Peptide Microbiology Microbiology Results: Microbiology 08/08/21 18:40 Blood - Venous Blood Culture - Preliminary No growth after 24 hours. 08/08/21 18:31 Blood - Venous Blood Culture - Preliminary No growth after 24 hours. Procedures Date of Service Date of Service: 08/10/21 Assessment & Plan Assessment and plan (1) Ischemic colitis: Status: Acute Plan 1. ESRD: cont HD TTS 2. GIB: w/u in progress 3. Anemia: cont epo REC: cont HD TTS, epos as ordered, GI w/u as noted Time Spent With Patient Time: Total time spent is greater than 50% in coordination of care (as documented) at patient's floor/unit and/or counseling patient: Progress Note: Quality Stroke Does the patient have a stroke diagnosis?: No
--- NOTE | 2021-08-10 18:59 | PM.CNCAR ---
History of Present Illness History of Present Illness Date of Service: 08/11/21 Requesting physician: Angelica Ashby Chief complaint: Volume Overload Narrative: 66-year-old female was past medical history significant for end-stage renal disease on hemodialysis, hypertension and congestive heart failure who is presenting with abdominal wall cellulitis and abdominal pain. She is thought to have ischemic colitis and has been conservatively managed. She is on antibiotics. She was noted to be volume overloaded by examination. For discussing with the patient she is denying abdominal pain. She is also denying any other symptoms and wants to go home. Overall examination is consistent with whole-body volume overload with peripheral edema and mild JVD. Blood pressure is also elevated. Overall feeling better. She is for hemodialysis tomorrow. [facility] Past Medical History Medical History Acute kidney injury superimposed on chronic kidney disease VANDANA (acute kidney injury) Anemia in chronic kidney disease CHF (congestive heart failure) Constipation Diabetes mellitus Diastolic congestive heart failure End-stage renal disease (ESRD) Essential hypertension HTN (hypertension) HTN (hypertension) Hypertension Non-compliance Normocytic anemia Family History Family History Other Hypertension Surgical History Surgical History No pertinent past surgical history Social History Social History Household Members: None Housing: Assisted Living Facility Do you presently have visiting nurse or other home services: Yes (visiting nurse/[employer]) Alcohol intake: unknown Patient Tobacco Use Status: Current everyday Tobacco user Tobacco use type: Cigarette Cigarette Packs Per Day: 1 Cigarettes Per Day: 5 Years Smoked: 18 e-Cigarette/Vaping Use: Never Used Second Hand Smoke Exposure: No Substance Use Type: Heroin Advance Directives Date on File: 04/20/21 service: No Current occupational status: disabled Meds Allergies Allergy/AdvReac Type Severity Reaction Status Date / Time No Known Allergies Allergy Mild NOT Verified 12/14/20 11:50 APPLICABLE Active Medications: Current Medications Acetaminophen (Acetaminophen 325 Mg Tablet) 650 mg PO Q6H PRN PRN Reason: Pain, Mild (Pain Scale 1-3) Last Admin: 08/09/21 18:19 Dose: 650 mg Documented by: Amlodipine Besylate (Amlodipine Besylate 10 Mg Tablet) 10 mg PO BEDTIME [facility]; Protocol Last Admin: 08/09/21 21:12 Dose: 10 mg Documented by: Aspirin (Aspirin Enteric Coated 81 Mg Tablet.) 81 mg PO DAILY [facility] Last Admin: 08/10/21 09:45 Dose: 81 mg Documented by: Bumetanide (Bumetanide 1 Mg Tablet) 2 mg PO DAILY [facility]; Protocol Last Admin: 08/10/21 09:45 Dose: 2 mg Documented by: Buprenorphine/Naloxone (Buprenorphine/Naloxone 8/2 Mg Film) 1 film SUBLINGUAL BID [facility] Last Admin: 08/10/21 09:45 Dose: 1 film Documented by: Clonidine HCl (Clonidine Hcl 0.2 Mg Tablet) 0.2 mg PO BID [facility]; Protocol Last Admin: 08/10/21 09:44 Dose: 0.2 mg Documented by: Dextrose (Dextrose 50 % 25 Gm/50 Ml Vial) 25 gm IVPUSH Q15M PRN; Protocol PRN Reason: per Hypoglycemia Standing Ord. Diltiazem HCl (Diltiazem Hcl Cd 180 Mg Cap.Er.24h) 360 mg PO DAILY [facility]; Protocol Last Admin: 08/10/21 09:45 Dose: Not Given Documented by: Epoetin Kateryna (Epoetin Kateryna 10,000 Unit/Ml Vial) 10,000 unit SUBCUT WE@1000 [facility] Last Admin: 08/10/21 11:45 Dose: 10,000 unit Documented by: Fluticasone Propionate (Fluticasone Propionate 100 Mcg Blst.W.Dev) 1 puff INHALE RBID [facility] Last Admin: 08/10/21 07:25 Dose: 1 puff Documented by: Glucose (Glucose Gel 15 Gm Gel..Gram.) 15 gm PO Q15M PRN; Protocol PRN Reason: per Hypoglycemia Standing Ord. Hydralazine HCl (Hydralazine Hcl 50 Mg Tablet) 50 mg PO TID [facility]; Protocol Last Admin: 08/10/21 14:22 Dose: Not Given Documented by: Metronidazole (Flagyl) 500 mg in 100 mls @ 100 mls/hr IV Q8H [facility] Last Infusion: 08/10/21 18:14 Dose: Infused Documented by: Levofloxacin (Levaquin) 500 mg in 100 mls @ 100 mls/hr IV Q48H [facility] Insulin Glargine (Insulin Glargine,Hum.Rec.Anlog 100 Unit/Ml 10 Ml Vial) 14 unit SUBCUT DAILY [facility] Last Admin: 08/10/21 10:39 Dose: Not Given Documented by: Insulin Human Lispro (Insulin Lispro 100 Unit/Ml 3 Ml Vial) 0 unit SUBCUT QIDACHS [facility]; Protocol Last Admin: 08/10/21 16:59 Dose: Not Given Documented by: Melatonin (Melatonin 3 Mg Tablet) 6 mg PO BEDTIME PRN PRN Reason: Sleep Morphine Sulfate (Morphine Sulfate 4 Mg/Ml Cartridge) 4 mg IVPUSH Q4H PRN; Protocol PRN Reason: Pain, Severe (Pain Scale 7-10) Multivitamins/Vitamin C (Multivitamin Tablet) 1 tab PO DAILY [facility] Last Admin: 08/10/21 09:45 Dose: 1 tab Documented by: Nicotine (Nicotine 21 Mg Patch.Td24) 21 mg TRANSDERMA DAILY [facility] Last Admin: 08/10/21 14:21 Dose: 21 mg Documented by: Olanzapine (Olanzapine 10 Mg Tablet) 10 mg PO BEDTIME [facility] Last Admin: 08/09/21 21:12 Dose: 10 mg Documented by: Omeprazole (Omeprazole 20 Mg Capsule.Dr) 20 mg PO DAILY [facility] Last Admin: 08/10/21 09:44 Dose: 20 mg Documented by: Ondansetron HCl (Ondansetron Hcl 4 Mg/2 Ml Vial) 4 mg IVPUSH Q8H PRN PRN Reason: Nausea and Vomiting Last Admin: 08/09/21 03:41 Dose: 4 mg Documented by: Pantoprazole Sodium (Pantoprazole Sodium 40 Mg/10 Ml Vial) 40 mg IVPUSH DAILY@0630 [facility] Last Admin: 08/10/21 06:42 Dose: 40 mg Documented by: Pharmacy Consult (Consult Rx Vancomycin Dosing) 1 each MISCELLANE DAILY PRN PRN Reason: Consult order Pharmacy Consult (Consult Rx Vancomycin Dosing) 1 each MISCELLANE DAILY PRN PRN Reason: Consult order Polyethylene Glycol (Polyethylene Glycol 3350 17 Gm Powd.Pack) 17 gm PO DAILY [facility] Last Admin: 08/10/21 09:46 Dose: 17 gm Documented by: Sevelamer Carbonate (Sevelamer Carbonate Tablet 800 Mg Tablet) 800 mg PO TIDWM [facility] Last Admin: 08/10/21 16:59 Dose: 800 mg Documented by: Sodium Chloride (0.9 % Sodium Chloride Flush 3 Ml Syringe) 3 ml IVFLUSH QSHIFT [facility] Last Admin: 08/10/21 16:59 Dose: 3 ml Documented by: Tiotropium Olema (Tiotropium Olema 18 Mcg Cap.W.Dev) 1 puff INHALE DAILY [facility] Last Admin: 08/10/21 07:25 Dose: 1 puff Documented by: Triamcinolone Acetonide (Triamcinolone Acet 0.025 % Cream 15 Gm Tube) 1 appl TOPICAL BID [facility]; Protocol Last Admin: 08/10/21 10:01 Dose: 1 appl Documented by: Home Medications Medication Instructions Recorded Confirmed Last Taken Type aspirin 81 mg tablet,delayed 81 mg PO DAILY 10/22/20 08/08/21 Unknown History release buprenorphine 8 mg-naloxone 2 mg 1 strip SUBLINGUAL BID 10/22/20 08/08/21 Unknown History sublingual film (Suboxone) diltiazem HCl 180 mg 360 mg PO DAILY 10/22/20 08/08/21 Unknown History capsule,extended release 24 hr tiotropium bromide 18 mcg capsule 1 cap INHALATION DAILY 10/22/20 08/08/21 Unknown History with inhalation device (Spiriva with HandiHaler) olanzapine 10 mg tablet 10 mg PO BEDTIME 02/25/21 08/08/21 Unknown History bumetanide 2 mg tablet 2 mg PO DAILY 04/15/21 08/08/21 Unknown History fluticasone propionate 110 1 puff INHALATION BID 04/15/21 08/08/21 Unknown History mcg/actuation HFA aerosol inhaler (Flovent HFA) melatonin 5 mg tablet 5 mg PO BEDTIME PRN 04/15/21 08/08/21 Unknown History pantoprazole 40 mg tablet,delayed 40 mg PO DAILY 04/15/21 08/08/21 Unknown History release vitamin B comp no.3-folic acid 1 1 tab PO DAILY 04/15/21 08/08/21 Unknown History mg-vit C 60 mg-biotin 300 mcg tablet ([employer]) epoetin kateryna-epbx 10,000 unit/mL 10,000 unit SUBCUT WE@1000 05/11/21 08/08/21 Unknown History injection solution (Retacrit) sennosides 8.6 mg tablet (senna) 1 - 2 tab PO BEDTIME PRN 05/11/21 08/08/21 Unknown History acetaminophen 500 mg tablet 500 mg PO Q8H PRN 06/10/21 08/08/21 Unknown History sevelamer carbonate 800 mg tablet 800 mg PO TID 06/10/21 08/08/21 Unknown History triamcinolone acetonide 0.025 % 1 appl TOPICAL BID 06/10/21 08/08/21 Unknown History topical cream nicotine 21 mg/24 hr daily 1 patch TOPICAL DAILY 06/18/21 08/08/21 Unknown History transdermal patch clonidine HCl 0.2 mg tablet 0.2 mg PO BID 07/27/21 08/08/21 Unknown History hydralazine 50 mg tablet 1 tab PO TID 07/27/21 08/08/21 Unknown History insulin aspart U-100 100 unit/mL 1 sliding scale dose SUBCUT 07/27/21 08/08/21 Unknown History subcutaneous cartridge (Novolog USEASDIRECTD PenFill U-100 Insulin aspart) trazodone 100 mg tablet 1 - 2 tab PO BEDTIME PRN 08/08/21 08/08/21 Unknown History Physical Exam Vital Signs: Vital Signs: Last Vital Signs Temp 97.6 F 08/10/21 16:00 Pulse 60 08/10/21 16:00 Resp 18 08/10/21 16:00 BP 155/69 H 08/10/21 16:00 Pulse Ox 98 08/10/21 16:00 BMI result Body Mass Index 31.4 GENERAL APPEARANCE: in no acute distress, pleasant. NECK: no carotid bruit, mild jugular venous distention. right sided HD catheter. SKIN: no suspicious lesions, warm and dry. HEART: no murmurs, regular rate and rhythm. LUNGS: clear to auscultation bilaterally. ABDOMEN: soft, nontender. not distended. EXTREMITIES: no edema. PERIPHERAL PULSES: equal. NEUROLOGIC: No gross deficits, AAO X 3 Objective Labs and Meds Result diagrams: 08/10/21 06:30 08/10/21 06:30 Lab results: Laboratory Results - last 24 hr 08/09/21 08/10/21 08/10/21 20:39 06:30 06:30 WBC 9.8 RBC 2.76 L Hgb 8.1 L Hct 25.6 L MCV 92.8 MCH 29.3 MCHC 31.6 RDW 15.7 Plt Count 226 MPV 10.1 Absolute Nucleated RBC 0.000 Nucleated RBC % (auto) 0.0 Sodium 129 L Potassium 4.6 Chloride 95 L Carbon Dioxide 22 Anion Gap 17 BUN 18 H D Creatinine 5.36 H* Estim Creat Clear Calc 9.7 Estimated GFR 8 POC Glucose 167 H Random Glucose 119 H Calcium 7.9 L D B-Natriuretic Peptide 08/10/21 08/10/21 08/10/21 06:30 07:38 11:21 WBC RBC Hgb Hct MCV MCH MCHC RDW Plt Count MPV Absolute Nucleated RBC Nucleated RBC % (auto) Sodium Potassium Chloride Carbon Dioxide Anion Gap BUN Creatinine Estim Creat Clear Calc Estimated GFR POC Glucose 93 131 H Random Glucose Calcium B-Natriuretic Peptide 1186 H 08/10/21 16:32 WBC RBC Hgb Hct MCV MCH MCHC RDW Plt Count MPV Absolute Nucleated RBC Nucleated RBC % (auto) Sodium Potassium Chloride Carbon Dioxide Anion Gap BUN Creatinine Estim Creat Clear Calc Estimated GFR POC Glucose 110 Random Glucose Calcium B-Natriuretic Peptide Assessment and Plan (1) Ischemic colitis: Status: Acute (2) CHF (congestive heart failure): Status: Acute Plan [age] female who is here for abdominal pain with concern for ischemic colitis being managed conservatively. Feeling better and abdominal pain is better. She has edema and signs of volume overload. She is on hemodialysis. I think she will need to be optimized with hemodialysis with fluid removal. This can be reviewed by Nephrology as they are already involved. Her blood pressure is elevated which could be also due to some extra volume in the system. Currently she is asymptomatic and wishes to go home. If she is improved after hemodialysis tomorrow than can be discharged home. Thank you for allowing me to participate in the care of your patient. Please feel free to contact me if you have any questions. Procedures Date of Service Date of Service: 08/11/21
[2021-08-10] MEDS: OLANZapine 10 MG TABLET PO (20:33)
[2021-08-10] MEDS: amLODIPine Besylate 10 MG TABLET PO (20:33)
[2021-08-10 20:40] LABS: Glucose, Whole Blood 116 mg/dL (60-115)
[2021-08-10] MEDS: Morphine Sulfate 4 MG/ML CARTRIDGE IVPUSH (22:15)
[2021-08-11 03:35] VITALS: BP 169/67; PULSE 69; RESP 19; TEMP 36.1; O2SAT 95
[2021-08-11 06:00] VITALS: BMI 32.8
[2021-08-11] MEDS: Pantoprazole Sodium 40 MG/10 ML VIAL IVPUSH (06:05)
[2021-08-11] MEDS: ondansetron HCL 4 MG/2 ML VIAL IVPUSH ×2 (06:11→14:39)
[2021-08-11] MEDS: Morphine Sulfate 4 MG/ML CARTRIDGE IVPUSH (06:26)
[2021-08-11 06:53] LABS: Hematocrit 29.4 % (37.0-47.0); Hemoglobin 9.5 g/dl (12.0-16.0); Mean Corpuscular HGB Conc 32.3 g/dl (31.0-35.0); Mean Corpuscular Hemoglobin 29.7 pg (27.0-33.0); Mean Corpuscular Volume 91.9 fL (80.0-98.0); Platelet Count 281 X10*3/uL (160-400); Red Cell Distribution Width 15.4 % (11.0-16.0); White Blood Count 9.9 X10*3/uL (4.8-10.8)
[2021-08-11 07:42] VITALS: BP 141/68; PULSE 70; RESP 18; TEMP 36; O2SAT 95
[2021-08-11] MEDS: Fluticasone Propionate 100 MCG BLST.W.DEV 1 PUFF INHALE ×2 (07:48→20:09)
[2021-08-11 07:51] VITALS: PULSE 72; RESP 16; O2SAT 96
[2021-08-11 07:57] LABS: Glucose, Whole Blood 92 mg/dL (60-115)
[2021-08-11 09:44] LABS: Anion Gap 19 (12-20); Blood Urea Nitrogen 28 mg/dL (9-16); Calcium 8.3 mg/dL (8.4-10.2); Carbon Dioxide 20 mmol/L (22-29); Chloride 92 mmol/L (96-108); Creatinine Clr Calc Pharmacy 8.1; Estimated Glomerular Filt Rate 6; Glucose Random 96 mg/dL (60-115); Sodium 126 mmol/L (135-145)
[2021-08-11] MEDS: Acetaminophen 325 MG TABLET 650 MG PO (10:01)
[2021-08-11] MEDS: polyethylene glycoL 3350 17 GM POWD.PACK PO (10:01)
[2021-08-11] MEDS: metroNIDAZOLE/NS 500 MG/100 ML PIGGYBACK 100 MG IV ×2 (10:02→20:13)
[2021-08-11] MEDS: 0.9 % Sodium Chloride Flush 3 ML SYRINGE IVFLUSH ×2 (10:02→19:49)
[2021-08-11] MEDS: Bumetanide 1 MG TABLET 2 MG PO (10:03)
[2021-08-11] MEDS: Omeprazole 20 MG CAPSULE.DR PO (10:03)
[2021-08-11] MEDS: Sevelamer Carbonate Tablet 800 MG TABLET PO (10:03)
[2021-08-11] MEDS: Aspirin Enteric Coated 81 MG TABLET.DR PO (10:03)
[2021-08-11] MEDS: cloNIDine HCL 0.2 MG TABLET PO ×2 (10:03→19:47)
[2021-08-11] MEDS: hydrALAZINE HCl 50 MG TABLET PO ×2 (10:03→19:50)
[2021-08-11] MEDS: Buprenorphine/Naloxone 8/2 mg FILM 1 FILM SUBLINGUAL ×2 (10:04→19:47)
[2021-08-11] MEDS: Multivitamin TABLET 1 TAB PO (10:04)
[2021-08-11] MEDS: Nicotine 21 MG PATCH.TD24 TRANSDERMA (10:04)
[2021-08-11 11:26] VITALS: BP 176/82; PULSE 80; RESP 18; TEMP 36.1; O2SAT 98
[2021-08-11 11:49] LABS: Glucose, Whole Blood 133 mg/dL (60-115)
--- NOTE | 2021-08-11 12:06 | HO.PM.IMPN ---
Subjective Subjective Date of Service: 08/11/21 Interval History: seen and examined this morning follow up for colitis pt reports abdominal pain with eating since diet was advanced yesterday denies diarrhea, had some red blood on toilet paper but none in stool Review of Systems Review of Systems: Yes all other systems are reviewed and are negative Constitutional Constitutional: Denies chills and Denies fever(s) Cardiovascular Cardiovascular: Denies chest pain, Denies palpitations and Denies dyspnea Respiratory Respiratory: Denies cough and Denies dyspnea Gastrointestinal Gastrointestinal: Reports abdominal pain, Denies diarrhea, Denies nausea and Denies vomiting Endocrine Endocrine: Denies palpitations Physical Exam Vital Signs: Vital Signs: Last Vital Signs Temp 97.0 F 08/11/21 11:26 Pulse 80 08/11/21 11:26 Resp 18 08/11/21 11:26 BP 176/82 H 08/11/21 11:26 Pulse Ox 98 08/11/21 11:26 BMI result Body Mass Index 32.8 Const: General: cooperative, comfortable, no acute distress, alert and awake Nutritional Appearance: overweight Resp: Effort & Inspection: normal respiratory effort and able to speak in complete sentences Cardio: Rate: regular rate Heart sounds: S1 normal heart sound present GI: Other: softly distended (pt reports this is baseline) Palpation (GI): Soft to palpation and nontender Objective Data Active Medications Acetaminophen (Acetaminophen 325 Mg Tablet) 650 mg PO Q6H PRN PRN Reason: Pain, Mild (Pain Scale 1-3) Last Admin: 08/11/21 10:01 Dose: 650 mg Documented by: KISHOR Amlodipine Besylate (Amlodipine Besylate 10 Mg Tablet) 10 mg PO BEDTIME [facility]; Protocol Last Admin: 08/10/21 20:33 Dose: 10 mg Documented by: YANY Bumetanide (Bumetanide 1 Mg Tablet) 2 mg PO DAILY [facility]; Protocol Last Admin: 08/11/21 10:03 Dose: 2 mg Documented by: KISHOR Buprenorphine/Naloxone (Buprenorphine/Naloxone 8/2 Mg Film) 1 film SUBLINGUAL BID [facility] Last Admin: 08/11/21 10:04 Dose: 1 film Documented by: KISHOR Clonidine HCl (Clonidine Hcl 0.2 Mg Tablet) 0.2 mg PO BID [facility]; Protocol Last Admin: 08/11/21 10:03 Dose: 0.2 mg Documented by: KISHOR Dextrose (Dextrose 50 % 25 Gm/50 Ml Vial) 25 gm IVPUSH Q15M PRN; Protocol PRN Reason: per Hypoglycemia Standing Ord. Diltiazem HCl (Diltiazem Hcl Cd 180 Mg Cap.Er.24h) 360 mg PO DAILY [facility]; Protocol Last Admin: 08/10/21 09:45 Dose: Not Given Documented by: HILARIO Non-Admin Reason: Decreased Heart Rate Epoetin Fabricio (Epoetin Fabricio 10,000 Unit/Ml Vial) 10,000 unit SUBCUT WE@1000 [facility] Last Admin: 08/10/21 11:45 Dose: 10,000 unit Documented by: HILARIO Fluticasone Propionate (Fluticasone Propionate 100 Mcg Blst.W.Dev) 1 puff INHALE RBID [facility] Last Admin: 08/11/21 07:48 Dose: 1 puff Documented by: ZORAIDA Glucose (Glucose Gel 15 Gm Gel..Gram.) 15 gm PO Q15M PRN; Protocol PRN Reason: per Hypoglycemia Standing Ord. Hydralazine HCl (Hydralazine Hcl 50 Mg Tablet) 50 mg PO TID [facility]; Protocol Last Admin: 08/11/21 10:03 Dose: 50 mg Documented by: KISHOR Metronidazole (Flagyl) 500 mg in 100 mls @ 100 mls/hr IV Q8H [facility] Last Admin: 08/11/21 10:02 Dose: 100 mls/hr Documented by: KISHOR Levofloxacin (Levaquin) 500 mg in 100 mls @ 100 mls/hr IV Q48H [facility] Insulin Glargine (Insulin Glargine,Hum.Rec.Anlog 100 Unit/Ml 10 Ml Vial) 14 unit SUBCUT DAILY [facility] Last Admin: 08/11/21 10:11 Dose: Not Given Documented by: KISHOR Non-Admin Reason: Patient Refused Insulin Human Lispro (Insulin Lispro 100 Unit/Ml 3 Ml Vial) 0 unit SUBCUT QIDACHS [facility]; Protocol Last Admin: 08/11/21 12:00 Dose: Not Given Documented by: KISHOR Non-Admin Reason: No Insulin Coverage Melatonin (Melatonin 3 Mg Tablet) 6 mg PO BEDTIME PRN PRN Reason: Sleep Morphine Sulfate (Morphine Sulfate 4 Mg/Ml Cartridge) 4 mg IVPUSH Q4H PRN; Protocol PRN Reason: Pain, Severe (Pain Scale 7-10) Last Admin: 08/11/21 06:26 Dose: 4 mg Documented by: KARTHIK Multivitamins/Vitamin C (Multivitamin Tablet) 1 tab PO DAILY [facility] Last Admin: 08/11/21 10:04 Dose: 1 tab Documented by: KISHOR Nicotine (Nicotine 21 Mg Patch.Td24) 21 mg TRANSDERMA DAILY [facility] Last Admin: 08/11/21 10:04 Dose: 21 mg Documented by: KISHOR Olanzapine (Olanzapine 10 Mg Tablet) 10 mg PO BEDTIME [facility] Last Admin: 08/10/21 20:33 Dose: 10 mg Documented by: YANY Omeprazole (Omeprazole 20 Mg Capsule.Dr) 20 mg PO DAILY [facility] Last Admin: 08/11/21 10:03 Dose: 20 mg Documented by: KISHOR Ondansetron HCl (Ondansetron Hcl 4 Mg/2 Ml Vial) 4 mg IVPUSH Q8H PRN PRN Reason: Nausea and Vomiting Last Admin: 08/11/21 06:11 Dose: 4 mg Documented by: KARTHIK Pantoprazole Sodium (Pantoprazole Sodium 40 Mg/10 Ml Vial) 40 mg IVPUSH DAILY@0630 [facility] Last Admin: 08/11/21 06:05 Dose: 40 mg Documented by: KARTHIK Pharmacy Consult (Consult Rx Vancomycin Dosing) 1 each MISCELLANE DAILY PRN PRN Reason: Consult order Pharmacy Consult (Consult Rx Vancomycin Dosing) 1 each MISCELLANE DAILY PRN PRN Reason: Consult order Polyethylene Glycol (Polyethylene Glycol 3350 17 Gm Powd.Pack) 17 gm PO DAILY [facility] Last Admin: 08/11/21 10:01 Dose: 17 gm Documented by: KISHOR Sevelamer Carbonate (Sevelamer Carbonate Tablet 800 Mg Tablet) 800 mg PO TIDWM [facility] Last Admin: 08/11/21 10:03 Dose: 800 mg Documented by: KISHOR Sodium Chloride (0.9 % Sodium Chloride Flush 3 Ml Syringe) 3 ml IVFLUSH QSHIFT [facility] Last Admin: 08/11/21 10:02 Dose: 3 ml Documented by: KISHOR Tiotropium [place] (Tiotropium [place] 18 Mcg Cap.W.Dev) 1 puff INHALE DAILY [facility] Last Admin: 08/11/21 07:48 Dose: 1 puff Documented by: ZORAIDA Triamcinolone Acetonide (Triamcinolone Acet 0.025 % Cream 15 Gm Tube) 1 appl TOPICAL BID [facility]; Protocol Last Admin: 08/10/21 20:35 Dose: Not Given Documented by: YANY Non-Admin Reason: Patient Refused Labs CBC & Chem 7: 08/11/21 06:34 08/11/21 06:34 Labs: Laboratory Results - last 24 hr 08/10/21 08/10/21 08/11/21 16:32 20:33 06:34 MCV 91.9 MCH 29.7 MCHC 32.3 RDW 15.4 Plt Count 281 MPV 10.0 Absolute Nucleated RBC 0.000 Nucleated RBC % (auto) 0.0 Anion Gap Estim Creat Clear Calc Estimated GFR POC Glucose 110 116 H Random Glucose Calcium 08/11/21 08/11/21 08/11/21 06:34 07:44 11:31 MCV MCH MCHC RDW Plt Count MPV Absolute Nucleated RBC Nucleated RBC % (auto) Anion Gap 19 Estim Creat Clear Calc 8.1 Estimated GFR 6 POC Glucose 92 133 H Random Glucose 96 Calcium 8.3 L Microbiology Microbiology Results: Microbiology 08/08/21 18:31 Blood Culture - Preliminary Blood - Venous Prelim: GPC Gram Stain only 08/08/21 18:40 Blood Culture - Preliminary Blood - Venous No growth after 48 hours. Assessment and Plan (1) Ischemic colitis: Status: Acute Plan this is a 66-year-old female with past medical history of ESRD on dialysis not compliant,? CHF presents to the hospital with multiple complaints found to have positive GI bleed, as well as cellulitis and colitis GI bleed?secondary to ischemic colitis stool occult positive H/H has remained stable stable will continue pantoprazole for now continue IV Levaquin and flagyl GI following, pain with eating today, d/w GI, will repeat CT abdomen/pelvis with PO contrast Continue bowel regimen Possible Bacteremia 1/2 blood cultures + for GPC, likely contaminant Await final cultures anterior abdominal wall cellulitis no evidence of skin infection on exam follow cultures HCAP, less likely patient found to be hypoxic O2 dropping to 89% on room air, no further hypoxia bilateral ground-glass attenuation likely from chronic lung disease CT showing pulmonary nodules-will need outpatient follow-up follow cultures ESRD on dialysis noncompliant Nephrology following, continue TTS schedule DM Continue Lantus, SSI hyponatremia chronic follow BMP Elevated troponin chronically elevated likely type 2 in the setting of ESRD as well as GI bleed and acute infection monitor acute on chronic HFpEF. Stable Does not appear to be fluid overloaded at this time Continue Bumex Tobacco dependence Smoking cessation advised Continue nicotine replacement therapy Hypertension Continue Norvasc, diltiazem, hydralazine, clonidine DVT prophylaxis:? SCDs Attending Dr. Combs Full code Patient? requires continued hospitalization as patient is requiring IV antibiotics for ischemic colitis Quality Stroke Does the patient have a stroke diagnosis?: No VTE Prior VTE?: No VTE Risk Level:: Medical - moderate - high VTE Device Contraindication: N/A - Device Ordered VTE Drug Contraindication: Treatment Not Indicated
[2021-08-11] MEDS: Morphine Sulfate 4 MG/ML CARTRIDGE 2 MG IVPUSH (13:33)
[2021-08-11] MEDS: Triamcinolone Acet 0.025 % Cream 15 GM TUBE 1 APPL TOPICAL ×2 (13:41→20:14)
[2021-08-11] MEDS: Barium Sulfate Oral (Berry) 450 ML ORAL.SUSP 900 ML PO (14:32)
--- NOTE | 2021-08-11 16:27 | P.PNCA_ITS ---
Subjective Subjective Date of Service: 08/11/21 Principal diagnosis: esrd Interval history: abdominal pain and distension. Was drinking PO barium. Physical Exam Vital Signs: Last Vital Signs Temp 97.0 F 08/11/21 11:26 Pulse 80 08/11/21 11:26 Resp 18 08/11/21 11:26 BP 176/82 H 08/11/21 11:26 Pulse Ox 98 08/11/21 11:26 BMI result Body Mass Index 32.8 GENERAL APPEARANCE: in no acute distress, pleasant. NECK: no carotid bruit, mild jugular venous distention. right sided HD catheter. SKIN: no suspicious lesions, warm and dry. HEART: no murmurs, regular rate and rhythm. LUNGS: clear to auscultation bilaterally. ABDOMEN: soft, nontender. Distended and tender. EXTREMITIES: no edema. PERIPHERAL PULSES: equal. NEUROLOGIC: No gross deficits, AAO X 3 Objective Labs and Meds Result diagrams: 08/11/21 06:34 08/11/21 06:34 Lab results: Laboratory Results - last 24 hr 08/10/21 08/10/21 08/11/21 16:32 20:33 06:34 WBC 9.9 RBC 3.20 L Hgb 9.5 L Hct 29.4 L MCV 91.9 MCH 29.7 MCHC 32.3 RDW 15.4 Plt Count 281 MPV 10.0 Absolute Nucleated RBC 0.000 Nucleated RBC % (auto) 0.0 Sodium Potassium Chloride Carbon Dioxide Anion Gap BUN Creatinine Estim Creat Clear Calc Estimated GFR POC Glucose 110 116 H Random Glucose Calcium 08/11/21 08/11/21 08/11/21 06:34 07:44 11:31 WBC RBC Hgb Hct MCV MCH MCHC RDW Plt Count MPV Absolute Nucleated RBC Nucleated RBC % (auto) Sodium 126 L Potassium 5.0 Chloride 92 L Carbon Dioxide 20 L Anion Gap 19 BUN 28 H D Creatinine 6.59 H* Estim Creat Clear Calc 8.1 Estimated GFR 6 POC Glucose 92 133 H Random Glucose 96 Calcium 8.3 L Progress Note: A&P Assessment and plan (1) Ischemic colitis: Status: Acute (2) CHF (congestive heart failure): Status: Acute Plan 66 female with ESRD and ischemic colitis. Abdominal distension and tenderness. Will be getting CT. Volume status to be optimized by HD. Fall Risk Details Current Medications: Current Medications Acetaminophen (Acetaminophen 325 Mg Tablet) 650 mg PO Q6H PRN PRN Reason: Pain, Mild (Pain Scale 1-3) Last Admin: 08/11/21 10:01 Dose: 650 mg Documented by: Amlodipine Besylate (Amlodipine Besylate 10 Mg Tablet) 10 mg PO BEDTIME [facility]; Protocol Last Admin: 08/10/21 20:33 Dose: 10 mg Documented by: Bumetanide (Bumetanide 1 Mg Tablet) 2 mg PO DAILY [facility]; Protocol Last Admin: 08/11/21 10:03 Dose: 2 mg Documented by: Buprenorphine/Naloxone (Buprenorphine/Naloxone 8/2 Mg Film) 1 film SUBLINGUAL BID [facility] Last Admin: 08/11/21 10:04 Dose: 1 film Documented by: Clonidine HCl (Clonidine Hcl 0.2 Mg Tablet) 0.2 mg PO BID [facility]; Protocol Last Admin: 08/11/21 10:03 Dose: 0.2 mg Documented by: Dextrose (Dextrose 50 % 25 Gm/50 Ml Vial) 25 gm IVPUSH Q15M PRN; Protocol PRN Reason: per Hypoglycemia Standing Ord. Diltiazem HCl (Diltiazem Hcl Cd 180 Mg Cap.Er.24h) 360 mg PO DAILY [facility]; Protocol Last Admin: 08/10/21 09:45 Dose: Not Given Documented by: Docusate Sodium (Docusate Sodium 100 Mg Capsule) 100 mg PO BEDTIME [facility] Epoetin Fabricio (Epoetin Fabricio 10,000 Unit/Ml Vial) 10,000 unit SUBCUT WE@1000 [facility] Last Admin: 08/10/21 11:45 Dose: 10,000 unit Documented by: Fluticasone Propionate (Fluticasone Propionate 100 Mcg Blst.W.Dev) 1 puff I NHALE RBID [facility] Last Admin: 08/11/21 07:48 Dose: 1 puff Documented by: Glucose (Glucose Gel 15 Gm Gel..Gram.) 15 gm PO Q15M PRN; Protocol PRN Reason: per Hypoglycemia Standing Ord. Hydralazine HCl (Hydralazine Hcl 50 Mg Tablet) 50 mg PO TID [facility]; Protocol Last Admin: 08/11/21 10:03 Dose: 50 mg Documented by: Metronidazole (Flagyl) 500 mg in 100 mls @ 100 mls/hr IV Q8H [facility] Last Infusion: 08/11/21 11:05 Dose: Infused Documented by: Levofloxacin (Levaquin) 500 mg in 100 mls @ 100 mls/hr IV Q48H [facility] Insulin Glargine (Insulin Glargine,Hum.Rec.Anlog 100 Unit/Ml 10 Ml Vial) 14 unit SUBCUT DAILY [facility] Last Admin: 08/11/21 10:11 Dose: Not Given Documented by: Insulin Human Lispro (Insulin Lispro 100 Unit/Ml 3 Ml Vial) 0 unit SUBCUT QIDACHS [facility]; Protocol Last Admin: 08/11/21 12:00 Dose: Not Given Documented by: Melatonin (Melatonin 3 Mg Tablet) 6 mg PO BEDTIME PRN PRN Reason: Sleep Morphine Sulfate (Morphine Sulfate 4 Mg/Ml Cartridge) 2 mg IVPUSH Q4H PRN; Protocol PRN Reason: Pain, Severe (Pain Scale 7-10) Last Admin: 08/11/21 13:33 Dose: 2 mg Documented by: Multivitamins/Vitamin C (Multivitamin Tablet) 1 tab PO DAILY [facility] Last Admin: 08/11/21 10:04 Dose: 1 tab Documented by: Nicotine (Nicotine 21 Mg Patch.Td24) 21 mg TRANSDERMA DAILY [facility] Last Admin: 08/11/21 10:04 Dose: 21 mg Documented by: Olanzapine (Olanzapine 10 Mg Tablet) 10 mg PO BEDTIME [facility] Last Admin: 08/10/21 20:33 Dose: 10 mg Documented by: Ondansetron HCl (Ondansetron Hcl 4 Mg/2 Ml Vial) 4 mg IVPUSH Q8H PRN PRN Reason: Nausea and Vomiting Last Admin: 08/11/21 14:39 Dose: 4 mg Documented by: Pantoprazole Sodium (Pantoprazole Sodium 40 Mg/10 Ml Vial) 40 mg IVPUSH DAILY@0630 [facility] Last Admin: 08/11/21 06:05 Dose: 40 mg Documented by: Pharmacy Consult (Consult Rx Vancomycin Dosing) 1 each MISCELLANE DAILY PRN PRN Reason: Consult order Pharmacy Consult (Consult Rx Vancomycin Dosing) 1 each MISCELLANE DAILY PRN PRN Reason: Consult order Polyethylene Glycol (Polyethylene Glycol 3350 17 Gm Powd.Pack) 17 gm PO DAILY [facility] Last Admin: 08/11/21 10:01 Dose: 17 gm Documented by: Sevelamer Carbonate (Sevelamer Carbonate Tablet 800 Mg Tablet) 800 mg PO TIDWM [facility] Last Admin: 08/11/21 14:39 Dose: Not Given Documented by: Sodium Chloride (0.9 % Sodium Chloride Flush 3 Ml Syringe) 3 ml IVFLUSH QSHIFT [facility] Last Admin: 08/11/21 10:02 Dose: 3 ml Documented by: Tiotropium [place] (Tiotropium [place] 18 Mcg Cap.W.Dev) 1 puff INHALE DAILY [facility] Last Admin: 08/11/21 07:48 Dose: 1 puff Documented by: Triamcinolone Acetonide (Triamcinolone Acet 0.025 % Cream 15 Gm Tube) 1 appl TOPICAL BID [facility]; Protocol Last Admin: 08/11/21 13:41 Dose: 1 appl Documented by: Time Spent With Patient Time: Total time spent is greater than 50% in coordination of care (as documented) at patient's floor/unit and/or counseling patient: Progress Note: Quality Stroke Does the patient have a stroke diagnosis?: No Procedures Date of Service Date of Service: 08/11/21
[2021-08-11] MEDS: Docusate Sodium 100 MG CAPSULE PO (19:47)
[2021-08-11] MEDS: OLANZapine 10 MG TABLET PO (19:48)
[2021-08-11] MEDS: amLODIPine Besylate 10 MG TABLET PO (19:50)
[2021-08-11 20:00] VITALS: BP 145/65; PULSE 80; RESP 15; TEMP 36.4; O2SAT 96
[2021-08-11 20:11] VITALS: PULSE 85; RESP 20; O2SAT 96
[2021-08-11 21:00] LABS: Glucose, Whole Blood 136 mg/dL (60-115)
--- NOTE | 2021-08-11 23:49 | PM.PNNEP ---
Subjective Subjective Date of Service: 08/11/21 Principal diagnosis: esrd Interval history: Seen and examined, events noted Physical Exam Vital Signs: Vital Signs: Last Vital Signs Temp 97.5 F 08/11/21 20:00 Pulse 85 08/11/21 20:11 Resp 20 08/11/21 20:11 BP 145/65 H 08/11/21 20:00 Pulse Ox 96 08/11/21 20:00 BMI result Body Mass Index 32.8 Const: General: cooperative and no acute distress Orientation/consciousness: patient oriented x3 Eyes: General: appearance normal, both eyes and all related structures Pupils: Equal, round and reactive pupils present Resp: Effort & Inspection: normal respiratory effort Auscultation: clear to auscultation bilaterally Cardio: Rate: regular rate Rhythm: regular rhythm GI: Other: abdomen is 3+ distended, significant tenderness on palpation, even slight palpation of abdomen causes significant pain throughout the abdomen Skin: General skin exam: no rashes or lesions noted Neuro: General: patient oriented x3 Cranial nerves: Yes Equal, round and reactive pupils present Extrem: Other: 2+ nonpitting lower extremity edema General: Yes normal to inspection and Yes no pedal edema Psych: Appearance: grossly normal Objective Data Labs CBC & Chem 7: 08/11/21 06:34 08/11/21 06:34 Labs: Laboratory Results - last 24 hr 08/11/21 08/11/21 08/11/21 06:34 06:34 07:44 WBC 9.9 RBC 3.20 L Hgb 9.5 L Hct 29.4 L MCV 91.9 MCH 29.7 MCHC 32.3 RDW 15.4 Plt Count 281 MPV 10.0 Absolute Nucleated RBC 0.000 Nucleated RBC % (auto) 0.0 Sodium 126 L Potassium 5.0 Chloride 92 L Carbon Dioxide 20 L Anion Gap 19 BUN 28 H D Creatinine 6.59 H* Estim Creat Clear Calc 8.1 Estimated GFR 6 POC Glucose 92 Random Glucose 96 Calcium 8.3 L 08/11/21 08/11/21 11:31 20:42 WBC RBC Hgb Hct MCV MCH MCHC RDW Plt Count MPV Absolute Nucleated RBC Nucleated RBC % (auto) Sodium Potassium Chloride Carbon Dioxide Anion Gap BUN Creatinine Estim Creat Clear Calc Estimated GFR POC Glucose 133 H 136 H Random Glucose Calcium Microbiology Microbiology Results: Microbiology 08/08/21 18:31 Blood - Venous Blood Culture - Preliminary Prelim: GPC Gram Stain only 08/08/21 18:40 Blood - Venous Blood Culture - Preliminary No growth after 48 hours. Procedures Date of Service Date of Service: 08/11/21 Assessment & Plan Assessment and plan (1) Ischemic colitis: Status: Acute Plan 1. ESRD: cont HD TTS 2. GIB: w/u in progress 3. Anemia: cont epo REC: no new recs; cont HD TTS, epos as ordered, GI w/u as noted Time Spent With Patient Time: Total time spent is greater than 50% in coordination of care (as documented) at patient's floor/unit and/or counseling patient: Progress Note: Quality Stroke Does the patient have a stroke diagnosis?: No
[2021-08-12] VITALS: BP 152/83; PULSE 73; RESP 19; TEMP 36.2; O2SAT 96
[2021-08-12 04:00] VITALS: BP 151/74; PULSE 72; RESP 20; TEMP 36.2; O2SAT 97
[2021-08-12] MEDS: metroNIDAZOLE/NS 500 MG/100 ML PIGGYBACK 100 MG IV ×2 (04:45→11:28)
[2021-08-12 05:51] VITALS: BMI 32.4
[2021-08-12] MEDS: Pantoprazole Sodium 40 MG/10 ML VIAL IVPUSH (05:54)
[2021-08-12] MEDS: Fluticasone Propionate 100 MCG BLST.W.DEV 1 PUFF INHALE (07:47)
[2021-08-12 07:50] VITALS: PULSE 72; RESP 18; O2SAT 97
[2021-08-12 08:00] VITALS: BP 154/68; PULSE 76; RESP 18; TEMP 36.3; O2SAT 98
[2021-08-12] MEDS: 0.9 % Sodium Chloride Flush 3 ML SYRINGE IVFLUSH (08:22)
[2021-08-12] MEDS: Sevelamer Carbonate Tablet 800 MG TABLET PO ×2 (08:22→11:28)
[2021-08-12] MEDS: levoFLOXacin/D5W 500 MG/100 ML PIGGYBACK 100 MG IV (08:22)
[2021-08-12] MEDS: Nicotine 21 MG PATCH.TD24 TRANSDERMA (08:24)
[2021-08-12] MEDS: Multivitamin TABLET 1 TAB PO (08:25)
[2021-08-12 08:35] LABS: Glucose, Whole Blood 74 mg/dL (60-115)
[2021-08-12] MEDS: hydrALAZINE HCl 50 MG TABLET PO ×2 (08:58→14:32)
[2021-08-12] MEDS: Buprenorphine/Naloxone 8/2 mg FILM 1 FILM SUBLINGUAL (08:58)
[2021-08-12] MEDS: Bumetanide 1 MG TABLET 2 MG PO (08:58)
[2021-08-12] MEDS: cloNIDine HCL 0.2 MG TABLET PO (08:58)
[2021-08-12 09:26] LABS: Anion Gap 15 (12-20); Blood Urea Nitrogen 15 mg/dL (9-16); Carbon Dioxide 19 mmol/L (22-29); Chloride 96 mmol/L (96-108); Creatinine Clr Calc Pharmacy 11.1; Estimated Glomerular Filt Rate 9; Glucose Random 118 mg/dL (60-115); Potassium 4.7 mmol/L (3.3-5.1); Sodium 125 mmol/L (135-145)
[2021-08-12] MEDS: Triamcinolone Acet 0.025 % Cream 15 GM TUBE 1 APPL TOPICAL (10:13)
[2021-08-12 11:11] LABS: Glucose, Whole Blood 129 mg/dL (60-115)
[2021-08-12 11:22] VITALS: BP 143/65; PULSE 69; RESP 18; TEMP 36.4; O2SAT 98
[2021-08-12] MEDS: Insulin Glargine,Hum.rec.anlog 100 UNIT/ML 10 ML VIAL 14 UNIT SUBCUT (11:29)
--- NOTE | 2021-08-12 12:16 | MHC.CM.PN ---
Female 66 DX Volume Overload Per MD rounds patient's diet is being advanced today. She will also have a PT eval. DP home with resumption of [facility] [facility] services, pending PT eval.
--- NOTE | 2021-08-12 12:56 | PM.PNNEP ---
Subjective Subjective Date of Service: 08/12/21 Principal diagnosis: esrd Interval history: Seen and examined, events noted Physical Exam Vital Signs: Vital Signs: Last Vital Signs Temp 97.6 F 08/12/21 11:22 Pulse 69 08/12/21 11:22 Resp 18 08/12/21 11:22 BP 143/65 H 08/12/21 11:22 Pulse Ox 98 08/12/21 11:22 BMI result Body Mass Index 32.4 Const General:?cooperative and no acute distress Orientation/consciousness:?patient oriented x3 Eyes General:?appearance normal, both eyes and all related structures Pupils:?Equal, round and reactive pupils present Resp Effort & Inspection:?normal respiratory effort Auscultation:?clear to auscultation bilaterally Cardio Rate:?regular rate Rhythm:?regular rhythm GI Other: ?abdomen is 3+ distended, significant tenderness on palpation, even slight palpation of abdomen causes significant pain throughout the abdomen Skin General skin exam:?no rashes or lesions noted Neuro General:?patient oriented x3 Cranial nerves:?Yes Equal, round and reactive pupils present Extrem Other: ?2+ nonpitting? lower extremity edema General:?Yes normal to inspection and Yes no pedal edema Psych Appearance:?grossly normal Objective Data Labs CBC & Chem 7: 08/11/21 06:34 08/12/21 08:40 Labs: Laboratory Results - last 24 hr 08/11/21 08/12/21 08/12/21 20:42 07:43 08:40 Sodium 125 L Potassium 4.7 Chloride 96 Carbon Dioxide 19 L Anion Gap 15 BUN 15 Creatinine 4.73 H* Estim Creat Clear Calc 11.1 Estimated GFR 9 POC Glucose 136 H 74 Random Glucose 118 H Calcium 8.0 L 08/12/21 11:04 Sodium Potassium Chloride Carbon Dioxide Anion Gap BUN Creatinine Estim Creat Clear Calc Estimated GFR POC Glucose 129 H Random Glucose Calcium Microbiology Microbiology Results: Microbiology 08/08/21 18:31 Blood - Venous Blood Culture - Final Coag negative Staphylococcus 08/08/21 18:40 Blood - Venous Blood Culture - Preliminary No growth after 48 hours. Procedures Date of Service Date of Service: 08/12/21 Assessment & Plan Assessment and plan (1) ESRD (end stage renal disease) on dialysis: Status: Acute Assessment and Plan: 1. ESRD: cont HD TTS 2. GIB: w/u in progress 3. Anemia: cont epo REC: No new recs; Cont HD TTS, Epos as ordered, GI w/u as noted For d/c - I will arrange out pt HD Time Spent With Patient Time: Total time spent is greater than 50% in coordination of care (as documented) at patient's floor/unit and/or counseling patient: Progress Note: Quality Stroke Does the patient have a stroke diagnosis?: No
--- NOTE | 2021-08-12 13:56 | P.CDIC_ITS ---
CDI Concurrent Query Documentation Clarification: PHYSICIAN'S DOCUMENTATION REQUEST Date of Query: 08/12/21 1356 Patient Name: Cruz Muller Admit Date: 08/08/21 Dear Doctor, A review of the medical record indicates additional documentation may be needed. Please review below and update the documentation accordingly. Risk Factors/Clinical Indicators/Treatments Per GI consult 08/09/21: Ischemic Colitis caused by constipation Based on the above, could you clarify in the Progress Notes the appropriate di agnosis, if significant, that supports the above abnormalities and additional evaluation, monitoring, and/or treatment rendered: * Acute Ischemic Colitis * Chronic Ischemic Colitis * Other (please specify) * Unable to determine Use of terms such as suspected, likely, concern for, or probable (associated with a specific diagnosis that is being evaluated, monitored, or treated as if it exists) are acceptable and can be coded in the inpatient setting, when documented at the time of discharge. Thank you, Khushboo Sanchez RN Extension: [phone] Please use your independent medical judgment in providing your response. THIS QUERY IS PART OF THE PERMANENT MEDICAL RECORD Provider Response: Other Other Diagnosis: acute ischemic colitis
[2021-08-12 14:53] LABS: CDiff Gene PCR NEGATIVE (Negative)
--- NOTE | 2021-08-12 15:29 | PM.DS ---
DS: Providers Provider Date of Service: 08/12/21 Date of admission: 08/08/21 23:58 Date of discharge: 08/12/21 Primary care physician: [facility] Consults: 08/08/21 23:53 Consult to Nephrology Routine Consulting Provider: [facility] Reason for consultation: missed dialysis Has provider been notified: No 08/09/21 00:06 Consult to Gastroenterology Routine Consulting Provider: Joao Schroeder Reason for consultation: Blood per rectum Has provider been notified: No 08/09/21 13:35 Consult to Infectious Diseases Routine Consulting Provider: J Luis Pan Reason for consultation: abd wall cellulitis 08/10/21 08:09 Consult to Cardiology Routine Consulting Provider: Charan Hankins Reason for consultation: chf Has provider been notified: No Attending physician on discharge: Kunal Combs Discharging clinician: Hattie Govea DS: Diagnosis Discharge Diagnosis (1) ESRD (end stage renal disease) on dialysis: Status: Acute (2) Ischemic colitis: Status: Acute DS: Summary Hospital Course Hospital Course: From H&P on day of admission ?66-year-old female with past medical history of ESRD D on dialysis Sunday with a history of noncompliance, CHF, diabetes, hypertension, presents to the hospital with complaints of bright red blood per rectum.? History is obtained with the help of senior functional analyst as patient is Slovenian-speaking.? Patient is inconsistent with her history but reports that she has been constipated for past 5 days, she took a bowel regimen but by her son [id number], developed significant diarrhea 2 days ago, and noticed bloody bowel movements.? She has also noticed significant abdominal pain? that is? diffuse,? constant, 10/, nonradiating, associated with nausea with no vomiting, has chills with no fever, she has also noticed significant abdominal distension.? She reports that she did not go to dialysis over the weekend because she was not feeling well.? She has chronic shortness of breath that has not increased, she denies any cough, she reports that she has significant constipation. ? She continues to produce urine and reports no significant urinary symptoms, denies any worsening lower extremity edema.? On arrival to the ED patient found to have a temp of 98.1 degrees, heart rate of 67, blood pressure of 151/60, respiratory rate of 18, satting 94% on room air .? While in the ED she did drop to 89% on room air and was placed on 2 L of nasal cannula labs are significant for WBC count 19.9, hemoglobin of 8.7 with a previous hemoglobin 9.8 on 07/27, sodium of 129 which is around her baseline, potassium 4.9, BUN of 33, creatinine of 8.5, magnesium of 2.9, BNP of 2732, stool occult positive, UA collection pending, abdominal CT shows diffuse mural thickening involving descending and sigmoid colon suggestive of inflammatory infectious colitis, there is mild constipation for the rest of the colon, small amount of free fluid in the pelvis and mesenteric haziness likely edema in the setting of ascites, there is anterior abdominal wall cellulitis, there is also 2 solid nodules in the right lobe and right lower lobe of the lungs, with extensive ground-glass attenuation seen in both lungs. Patient started on IV antibiotics and will be admitted for further management GI bleed?secondary to acute ischemic colitis. stool occult was positive. CT scan showing evidence of colitis. She was started on IV antibiotics and IV PPI. She was seen in consultation by GI who recommended antibiotics for 7 days. She had no further rectal bleeding. Patient had recurrent abdominal pain but repeat CT scan of the abdomen showed improvement in colitis. She did have persistent constipation on imaging. She was started on bowel regimen.She should call to schedule follow-up appointment with GI after discharge. C diff was checked and was negative. Stool cultures pending at the time of discharge but she will be discharged home with antibiotics. 1/2 blood cultures were positive but grew coag negative staph and is likely contaminant. Leukocytosis resolved, she has been afebrile and she is tolerating a full diet. She is eager to return home. anterior abdominal wall cellulitis - seen on imaging but no evidence of skin infection on exam Acute respiratory failure with hypoxia. patient found to be hypoxic O2 dropping to 89% on room air initially. Chest CT showing bilateral ground-glass attenuation likely from chronic lung disease, no shortness of breath or cough to suggest pneumonia but was covered with antibiotics for colitis. CT also showing pulmonary nodules-will need outpatient follow-up. Hypoxia improved with dialysis and she has been on room air since admission. ESRD on dialysis. Seen by Nephrology, she was continued on TTS schedule of dialysis. Last HD was 08/11/21 hyponatremia. chronic. Elevated troponin. chronically elevated and lower than previous. likely related to decreased clearance from ESRD chronic HFpEF. Continued on home dose of bumex Time Spent with Patient Time attestation: Total time spent providing and/or coordinating discharge services: Discharge coordination time: Greater than 30 minutes Quality: Stroke Does the patient have a stroke diagnosis?: No Physical Exam Vital Signs: Vital Signs: Last Vital Signs Temp 97.6 F 08/12/21 11:22 Pulse 69 08/12/21 11:22 Resp 18 08/12/21 11:22 BP 143/65 H 08/12/21 11:22 Pulse Ox 98 08/12/21 11:22 BMI result Body Mass Index 32.4 Const: General: cooperative, comfortable, no acute distress, alert and awake Nutritional Appearance: overweight Orientation/consciousness: patient oriented x3 Eyes: General: appearance normal, both eyes and all related structures Pupils: Equal, round and reactive pupils present Resp: Effort & Inspection: normal respiratory effort and able to speak in complete sentences Auscultation: clear to auscultation bilaterally Cardio: Rate: regular rate Rhythm: regular rhythm Heart sounds: S1 normal heart sound present GI: Palpation (GI): Soft to palpation and nontender Neuro: General: patient oriented x3 Cranial nerves: Yes Equal, round and reactive pupils present DS: Data Data Completed and Pending Completed studies during hospitalization [Text1]: Procedures Assistance with Respiratory Ventilation, Less than 24 Consecutive Hours, Continuous Positive Airway Pressure (07/27/21) Excision of Left Kidney, Percutaneous Approach, Diagnostic (02/25/21) Excision of Right Kidney, Percutaneous Approach, Diagnostic (10/22/20) Insertion of Infusion Device into Superior Vena Cava, Percutaneous Approach (02/25/21) Insertion of Tunneled Vascular Access Device into Chest Subcutaneous Tissue and Fascia, Percutaneous Approach (02/25/21) Performance of Urinary Filtration, Intermittent, Less than 6 Hours Per Day (07/27/21) Transfusion of Nonautologous Red Blood Cells into Peripheral Vein, Percutaneous Approach (02/25/21) Labs on day of discharge: Laboratory Results - last 24 hr 08/11/21 08/12/21 08/12/21 20:42 07:43 08:40 Sodium 125 L Potassium 4.7 Chloride 96 Carbon Dioxide 19 L Anion Gap 15 BUN 15 Creatinine 4.73 H* Estim Creat Clear Calc 11.1 Estimated GFR 9 POC Glucose 136 H 74 Random Glucose 118 H Calcium 8.0 L C. difficile Tox B Gene 08/12/21 08/12/21 11:04 13:15 Sodium Potassium Chloride Carbon Dioxide Anion Gap BUN Creatinine Estim Creat Clear Calc Estimated GFR POC Glucose 129 H Random Glucose Calcium C. difficile Tox B Gene NEGATIVE Preliminary micro results at discharge 08/08/21 18:40 Blood Culture - Preliminary Blood - Venous No growth after 48 hours. Discharge Plan Discharge Patient Disposition: Home, Self-Care Discharge Diagnosis: Ischemic colitis GI bleeding ESRD Fluid overload Referrals: [facility] [Outside] - 1 Week Center,[facility] [Primary Care Provider] - 1 Week Discharge Medications: New metronidazole 500 mg tablet 500 mg PO Q8H 4 Days Qty: 12 0RF levofloxacin 500 mg tablet 500 mg PO Q24H 4 Days Qty: 4 0RF docusate sodium [Colace] 100 mg capsule 100 mg PO DAILY 30 Days Qty: 30 0RF polyethylene glycol 3350 [Miralax] 17 gram/dose powder 17 g PO DAILY 30 Days Qty: 510 0RF Continued buprenorphine-naloxone [Suboxone] 8-2 mg film 1 strip sublingual BID 0RF diltiazem HCl 180 mg capsule,extended release 24hr 360 mg PO DAILY 0RF Spiriva with HandiHaler 18 mcg capsule, w/inhalation device 1 cap inhalation DAILY 0RF acetaminophen 500 mg Tablet 500 mg PO Q8H PRN (Reason: Pain, Mild) 0RF triamcinolone acetonide 0.025 % cream 1 appl topical BID 0RF sevelamer carbonate 800 mg tablet 800 mg PO TID 0RF clonidine HCl 0.2 mg tablet 0.2 mg PO BID 0RF hydralazine 50 mg tablet 1 tab PO TID 0RF insulin aspart U-100 [Novolog PenFill U-100 Insulin] 100 unit/mL Cartridge 1 sliding scale dose SUBCUT USEASDIRECTD 0RF Protocol: Insulin Correction Scale Less than or equal to 110 ---- Give (units): 0 111 to 150 Give (units): 0 151 to 200 Give (units): 4 201 to 250 Give (units): 6 251 to 300 Give (units): 8 301 to 350 Give (units): 10 Greater than 350 Give (units): 12 Call MD if Blood Glucose > : 350 trazodone 100 mg tablet 1 - 2 tab PO BEDTIME PRN (Reason: constipation) 0RF olanzapine 10 mg tablet 10 mg PO BEDTIME 0RF amlodipine 10 mg Tablet 10 mg PO BEDTIME Qty: 30 0RF Protocol: Hold for SBP< HOLD for SBP < : 90 Rx Instructions: replaces prior dose of 5 mg daily bumetanide 2 mg Tablet 2 mg PO DAILY 0RF pantoprazole 40 mg Tablet,Delayed Release (Dr/Ec) 40 mg PO DAILY 0RF melatonin 5 mg Tablet 5 mg PO BEDTIME PRN (Reason: Sleep) 0RF SEMICONDUCTOR PROCESSING TECHNICIAN-Sharifa Rx 1-60-300 mg-mg-mcg Tablet 1 tab PO DAILY 0RF Flovent HFA 110 mcg/actuation Hfa Aerosol Inhaler 1 puff INHALATION BID 0RF Lantus U-100 Insulin 100 unit/mL Solution 14 unit subcut DAILY Qty: 3 0RF Rx Instructions: replaces prior dose of 24 units daily sennosides [senna] 8.6 mg tablet 1 - 2 tab PO BEDTIME PRN (Reason: constipation) 0RF Retacrit 10,000 unit/mL Solution 10,000 unit SUBCUT WE@1000 0RF nicotine 21 mg/24 hr patch 24 hour 1 patch topical DAILY 0RF Discontinued aspirin 81 mg tablet,delayed release (DR/EC) 81 mg PO DAILY 0RF Discharge Orders: Discharge Order (Routine); Ordered 08/12/21 Ordered By: Hattie Govea Activity on Discharge: As tolerated Stand Alone Forms: Patient Portal Discharge page Care Plan Goals: see below Health Concerns: GI bleeding related to ischemic colitis constipation ESRD lung nodule Plan of Treatment: complete course of antibiotics call to schedule follow up appointment with GI resume dialysis on regular schedule Avoid ASA and other NSAIDs (ibuprofen, motrin, etc) constipation - take colace, miralax as prescribed Assessment: see discharge summary Discharge Date/Time: 08/12/21 17:15
[2021-08-12 15:44] VITALS: BP 158/78; PULSE 74; RESP 20; TEMP 37; O2SAT 99
--- NOTE | 2021-08-12 15:54 | PC.NURSE ---
1400 Had several loose stools, c diff neg. Valentina bkfst and lunch, no pain or nausea. Ambulated to BR with min assist.Valentina well.
--- NOTE | 2021-08-12 16:29 | MHC.CM.PN ---
IMM 08/11/21 Female Is discharged to day. [facility] has approved [facility] to continue services. DC info has been sent via [employer]. [facility] was reached by phone to report dc today. [facility] is the payor for [facility] home[facility].
[2021-08-12 16:33] LABS: Glucose, Whole Blood 114 mg/dL (60-115)
== END 2021-08-12 17:15 | disposition home or self-care (01) | DRG 393 ==
LOC: HO.ED 20:33 → HO.EDOVER 08-09 00:03 → HO.IMC 08-09 19:25
PROVIDERS: Nurse Practitioner Acute Care; Physician Assistant; Admitting Provider Internal Medicine; Emergency Provider Emergency Medicine; Visit Provider Physician Assistant Medical
DX: K55.039 Acute (reversible) ischemia of large intestine, extent unspecified (principal); N18.6 End stage renal disease; I50.33 Acute on chronic diastolic (congestive) heart failure; J18.9 Pneumonia, unspecified organism; I21.A1 Myocardial infarction type 2; J96.01 Acute respiratory failure with hypoxia; I13.2 Hypertensive heart and chronic kidney disease with heart failure and with stage 5 chronic kidney disease, or end stage renal disease; F11.20 Opioid dependence, uncomplicated; E87.1 Hypo-osmolality and hyponatremia; L03.311 Cellulitis of abdominal wall; K92.2 Gastrointestinal hemorrhage, unspecified; K55.8 Other vascular disorders of intestine; Z20.822 Contact with and (suspected) exposure to COVID-19; E11.22 Type 2 diabetes mellitus with diabetic chronic kidney disease; K59.00 Constipation, unspecified; D63.1 Anemia in chronic kidney disease; R91.8 Other nonspecific abnormal finding of lung field; Z99.2 Dependence on renal dialysis; Z91.15 Patient's noncompliance with renal dialysis; F17.210 Nicotine dependence, cigarettes, uncomplicated; Z71.6 Tobacco abuse counseling; Z79.4 Long term (current) use of insulin; Z79.899 Other long term (current) drug therapy
CPT/HCPCS: 36415; 71260; 74176; 74177; 80048; 80053; 80202; 82272; 82947; 83605; 83690; 83735; 83880; 84484; 85025; 85027; 85610; 86850; 86900; 86901; 87040; 87045; 87046; 87147; 87205; 87493; 87635; 90999; 94640; 99285; J0885; J1940; J1956; J2270; J2405; J2543; J3370; Q9967

== ENCOUNTER 2021-08-30 14:00 | Emergency (ER) | payer OTHER, SELFPAY ==
--- NOTE | 2021-08-30 | ECG_ITS ---
Test Reason : SWELLING Blood Pressure : / mmHG Vent. Rate : 061 BPM Atrial Rate : 061 BPM P-R Int : 128 ms QRS Dur : 084 ms QT Int : 450 ms P-R-T Axes : -15 -11 045 degrees QTc Int : 453 ms Normal sinus rhythm Minimal voltage criteria for LVH, may be normal variant ( Jona product ) Borderline ECG When compared with ECG of 27-JUL-2021 13:04, SC interval has decreased QRS axis Shifted right T wave amplitude has decreased in Inferior leads Nonspecific T wave abnormality now evident in Anterior leads Referred By: Generic ED Physician Electronically Signed By:Charan Hankins
--- NOTE | ~2021-08-30 | XR_ITS ---
EXAMINATION: XR ABDOMEN KUB CLINICAL INDICATION: Constipation COMPARISON: CT scan of the abdomen from 08/11/2021 TECHNIQUE: AP view of the abdomen. FINDINGS: There is nonobstructive bowel gas pattern. Large amount of fecal debris seen throughout the colon consistent with clinical question of constipation. There is no free air. XR/XR KUB IMPRESSION: Constipation
[2021-08-30 14:50] VITALS: BP 170/59; PULSE 67; RESP 18; TEMP 36.8; O2SAT 98; BMI 29.1
[2021-08-30 14:54] LABS: MANUAL DIFF FLAG NO
[2021-08-30 14:57] LABS: Basophils Percent Auto 0.1 % (0-2); Eosinophils Absolute Auto 0.4 X10*3/uL (0.0-0.4); Eosinophils Percent Auto 5.2 % (0-4); Hematocrit 33.9 % (37.0-47.0); Hemoglobin 10.5 g/dl (12.0-16.0); Imm Gran Abs Auto 0.02 X10*3/uL (0.00-0.03); Imm Gran Pct Auto 0.3 % (0.0-0.4); Lymphocytes Percent Auto 15.3 % (20-40); Mean Corpuscular Hemoglobin 29.7 pg (27.0-33.0); Mean Platelet Volume 9.3 fL (9.4-12.3); Monocytes Absolute Auto 0.6 X10*3/uL (0.1-1.2); Monocytes Percent Auto 8.3 % (2-11); Neutrophils Absolute Auto 4.8 x10*3/uL (2.0-8.3); Neutrophils Percent Auto 70.8 % (45-73); Platelet Count 211 X10*3/uL (160-400); Red Blood Count 3.53 X10*6/uL (4.20-5.50); White Blood Count 6.7 X10*3/uL (4.8-10.8)
[2021-08-30 15:22] LABS: Alanine Aminotransferase 6 U/L (0-31); Albumin Level 3.4 g/dL (3.5-5.0); Alkaline Phosphatase 154 U/L (39-117); Anion Gap 15 (12-20); Aspartate Amino Transferase 22 U/L (5-31); Bilirubin Total 0.3 mg/dL (0.0-1.0); Blood Urea Nitrogen 10 mg/dL (9-16); Calcium 8.6 mg/dL (8.4-10.2); Carbon Dioxide 28 mmol/L (22-29); Chloride 99 mmol/L (96-108); Creatinine Clr Calc Pharmacy 13.6; Estimated Glomerular Filt Rate 10; Glucose Random 100 mg/dL (60-115); Potassium 4.1 mmol/L (3.3-5.1); Sodium 138 mmol/L (135-145); Total Protein 6.5 g/dL (6.5-8.0)
--- NOTE | 2021-08-30 19:07 | ED.ABDPAIN ---
HPI - Abdominal Pain General Chief Complaint: Abdominal Pain Stated Complaint: knee pain, abd pain Time Seen by Provider: 08/30/21 19:07 Source: patient Mode of arrival: ambulatory Limitations: no limitations History of Present Illness HPI narrative: Patient is 66 years old with history of end-stage renal disease on dialysis opiate dependence, schizophrenia, CHF diabetes hypertension history of ischemic colitis 08/09 during last admission comes here now for diffuse abdominal pain for last 2 days had small bowel movement yesterday no blood in the stool no fever no chills no nausea no vomiting patient had dialysis today Related Data Home Medications Medication Instructions Recorded Confirmed buprenorphine 8 mg-naloxone 2 mg 1 strip SUBLINGUAL BID 10/22/20 08/08/21 sublingual film (Suboxone) diltiazem HCl 180 mg 360 mg PO DAILY 10/22/20 08/08/21 capsule,extended release 24 hr tiotropium bromide 18 mcg capsule 1 cap INHALATION DAILY 10/22/20 08/08/21 with inhalation device (Spiriva with HandiHaler) olanzapine 10 mg tablet 10 mg PO BEDTIME 02/25/21 08/08/21 bumetanide 2 mg tablet 2 mg PO DAILY 04/15/21 08/08/21 fluticasone propionate 110 1 puff INHALATION BID 04/15/21 08/08/21 mcg/actuation HFA aerosol inhaler (Flovent HFA) melatonin 5 mg tablet 5 mg PO BEDTIME PRN 04/15/21 08/08/21 pantoprazole 40 mg tablet,delayed 40 mg PO DAILY 04/15/21 08/08/21 release vitamin B comp no.3-folic acid 1 1 tab PO DAILY 04/15/21 08/08/21 mg-vit C 60 mg-biotin 300 mcg tablet (RESIDENT DIRECTOR-Sharifa Rx) epoetin kateryna-epbx 10,000 unit/mL 10,000 unit SUBCUT WE@1000 05/11/21 08/08/21 injection solution (Retacrit) sennosides 8.6 mg tablet (senna) 1 - 2 tab PO BEDTIME PRN 05/11/21 08/08/21 acetaminophen 500 mg tablet 500 mg PO Q8H PRN 06/10/21 08/08/21 sevelamer carbonate 800 mg tablet 800 mg PO TID 06/10/21 08/08/21 triamcinolone acetonide 0.025 % 1 appl TOPICAL BID 06/10/21 08/08/21 topical cream nicotine 21 mg/24 hr daily 1 patch TOPICAL DAILY 06/18/21 08/08/21 transdermal patch clonidine HCl 0.2 mg tablet 0.2 mg PO BID 07/27/21 08/08/21 hydralazine 50 mg tablet 1 tab PO TID 07/27/21 08/08/21 insulin aspart U-100 100 unit/mL 1 sliding scale dose SUBCUT 07/27/21 08/08/21 subcutaneous cartridge (Novolog USEASDIRECTD PenFill U-100 Insulin aspart) trazodone 100 mg tablet 1 - 2 tab PO BEDTIME PRN 08/08/21 08/08/21 Previous Rx's Medication Instructions Recorded amlodipine 10 mg tablet 10 mg PO BEDTIME #30 tab 03/07/21 insulin glargine 100 unit/mL 14 unit (0.14 mL) SUBCUT DAILY #3 04/19/21 subcutaneous solution (Lantus ml U-100 Insulin) docusate sodium 100 mg capsule 100 mg PO DAILY 30 Days #30 cap 08/12/21 (Colace) levofloxacin 500 mg tablet 500 mg PO Q24H 4 Days #4 tab 08/12/21 metronidazole 500 mg tablet 500 mg PO Q8H 4 Days #12 tab 08/12/21 polyethylene glycol 3350 17 17 g PO DAILY 30 Days #510 g 08/12/21 gram/dose oral powder (Miralax) bisacodyl 5 mg tablet,delayed 10 mg PO BEDTIME 2 Days #20 tab 08/30/21 release (Dulcolax (bisacodyl)) Allergies Allergy/AdvReac Type Severity Reaction Status Date / Time No Known Allergies Allergy Mild NOT Verified 08/30/21 14:53 APPLICABLE Review of Systems Review of Systems Yes all other systems are reviewed and are negative [facility] Past Medical History Medical History Acute kidney injury superimposed on chronic kidney disease VANDANA (acute kidney injury) Anemia in chronic kidney disease CHF (congestive heart failure) CHF (congestive heart failure) CKD (chronic kidney disease) Constipation Diabetes mellitus Diastolic congestive heart failure End-stage renal disease (ESRD) ESRD (end stage renal disease) on dialysis Essential hypertension HTN (hypertension) HTN (hypertension) Hypertension Non-compliance Normocytic anemia Surgical History No pertinent past surgical history Family History Family History Other Hypertension Social History Social History Household Members: None Housing: Assisted Living Facility Do you presently have visiting nurse or other home services: Yes (visiting nurse/RHEOLOGIST) Alcohol intake: unknown Patient Tobacco Use Status: Current everyday Tobacco user Tobacco use type: Cigarette Cigarette Packs Per Day: 1 Cigarettes Per Day: 5 Years Smoked: 18 e-Cigarette/Vaping Use: Never Used Second Hand Smoke Exposure: No Substance Use Type: Heroin Advance Directives: No Advance Directives Information Provided: No Advance Directives Date on File: 04/20/21 service: No Current occupational status: disabled Physical Exam ED Vital Signs: Vital Signs - 24 hr 08/30/21 14:50 Temperature 98.3 F Pulse Rate 67 Respiratory Rate 18 Blood Pressure 170/59 H Pulse Oximetry 98 BMI result Body Mass Index 29.1 Appearance: Alert. Oriented X3. No acute distress. Eyes: No pallor/ icterus ENT: Pharynx normal. Oral Mucosa moist Neck: Normal inspection. Neck supple. CVS: Normal heart rate and rhythm. Pulses normal. Respiratory: No respiratory distress. Equal air entry bilateral, no wheezing/rales/rhonchi Shiley catheter in place Abdomen: Soft , diffuse tenderness no rebound tenderness guarding, Bowel sounds are present, no mass palpable, no CVA tenderness Skin: Skin warm and dry. Normal skin color. Normal skin turgor. Extremities: 2+ lower extremity edema. No calf tenderness Neuro: Oriented X 3. No motor deficit. MDM - Abdominal Pain MDM Narrative Medical decision making narrative: Patient x-ray showed moderate amount of stool in the abdomen pain likely from constipation patient advised to continue her stool softener and start taking Dulcolax for severe constipation Lab Data Attestation: I reviewed the patient's lab results. Result diagrams: 08/30/21 14:48 08/30/21 14:48 Labs: Lab Results 08/30/21 08/30/21 Range/Units 14:48 14:48 WBC 6.7 (4.8-10.8) X10*3/uL RBC 3.53 L (4.20-5.50) X10*6/uL Hgb 10.5 L (12.0-16.0) g/dl Hct 33.9 L (37.0-47.0) % MCV 96.0 (80.0-98.0) fL MCH 29.7 (27.0-33.0) pg MCHC 31.0 (31.0-35.0) g/dl RDW 17.0 H (11.0-16.0) % Plt Count 211 (160-400) X10*3/uL MPV 9.3 L (9.4-12.3) fL Immature Gran % (Auto) 0.3 (0.0-0.4) % Neut % (Auto) 70.8 (45-73) % Lymph % (Auto) 15.3 L (20-40) % [place] % (Auto) 8.3 (2-11) % Eos % (Auto) 5.2 H (0-4) % Baso % (Auto) 0.1 (0-2) % Lymph # (Auto) 1.0 L (1.2-4.9) X10*3/uL [place] # (Auto) 0.6 (0.1-1.2) X10*3/uL Eos # (Auto) 0.4 (0.0-0.4) X10*3/uL Baso # (Auto) 0.0 (0.0-0.2) X10*3/uL Abs Immat Gran (auto) 0.02 (0.00-0.03) X10*3/uL Absolute Neuts (auto) 4.8 (2.0-8.3) x10*3/uL Absolute Nucleated RBC 0.000 (0.0-0.012) X10*3/uL Nucleated RBC % (auto) 0.0 (0.0-0.2) /100WBC Sodium 138 (135-145) mmol/L Potassium 4.1 (3.3-5.1) mmol/L Chloride 99 (96-108) mmol/L Carbon Dioxide 28 (22-29) mmol/L Anion Gap 15 (12-20) BUN 10 (9-16) mg/dL Creatinine 4.29 H* (0.5-1.4) mg/dL Estim Creat Clear Calc 13.6 Estimated GFR 10 Random Glucose 100 (60-115) mg/dL Calcium 8.6 D (8.4-10.2) mg/dL Total Bilirubin 0.3 (0.0-1.0) mg/dL AST 22 (5-31) U/L ALT 6 (0-31) U/L Alkaline Phosphatase 154 H (39-117) U/L Total Protein 6.5 (6.5-8.0) g/dL Albumin 3.4 L (3.5-5.0) g/dL Discharge Plan Discharge Clinical Impression: Constipation Patient Disposition: Home, Self-Care Instructions: Constipation (ED) Additional Instructions: Continue your stool softener daily Take Dulcolax also for severe constipation Follow with PCP Prescriptions: New bisacodyl [Dulcolax (bisacodyl)] 5 mg tablet,delayed release (DR/EC) 10 mg PO BEDTIME 2 Days Qty: 20 0RF No Action buprenorphine-naloxone [Suboxone] 8-2 mg film 1 strip sublingual BID 0RF diltiazem HCl 180 mg capsule,extended release 24hr 360 mg PO DAILY 0RF Spiriva with HandiHaler 18 mcg capsule, w/inhalation device 1 cap inhalation DAILY 0RF acetaminophen 500 mg Tablet 500 mg PO Q8H PRN (Reason: Pain, Mild) 0RF triamcinolone acetonide 0.025 % cream 1 appl topical BID 0RF sevelamer carbonate 800 mg tablet 800 mg PO TID 0RF clonidine HCl 0.2 mg tablet 0.2 mg PO BID 0RF hydralazine 50 mg tablet 1 tab PO TID 0RF insulin aspart U-100 [Novolog PenFill U-100 Insulin] 100 unit/mL Cartridge 1 sliding scale dose SUBCUT USEASDIRECTD 0RF Protocol: Insulin Correction Scale Less than or equal to 110 ---- Give (units): 0 111 to 150 Give (units): 0 151 to 200 Give (units): 4 201 to 250 Give (units): 6 251 to 300 Give (units): 8 301 to 350 Give (units): 10 Greater than 350 Give (units): 12 Call MD if Blood Glucose > : 350 trazodone 100 mg tablet 1 - 2 tab PO BEDTIME PRN (Reason: constipation) 0RF metronidazole 500 mg tablet 500 mg PO Q8H 4 Days Qty: 12 0RF levofloxacin 500 mg tablet 500 mg PO Q24H 4 Days Qty: 4 0RF docusate sodium [Colace] 100 mg capsule 100 mg PO DAILY 30 Days Qty: 30 0RF polyethylene glycol 3350 [Miralax] 17 gram/dose powder 17 g PO DAILY 30 Days Qty: 510 0RF olanzapine 10 mg tablet 10 mg PO BEDTIME 0RF amlodipine 10 mg Tablet 10 mg PO BEDTIME Qty: 30 0RF Protocol: Hold for SBP< HOLD for SBP < : 90 Rx Instructions: replaces prior dose of 5 mg daily bumetanide 2 mg Tablet 2 mg PO DAILY 0RF pantoprazole 40 mg Tablet,Delayed Release (Dr/Ec) 40 mg PO DAILY 0RF melatonin 5 mg Tablet 5 mg PO BEDTIME PRN (Reason: Sleep) 0RF RESIDENT DIRECTOR-Sharifa Rx 1-60-300 mg-mg-mcg Tablet 1 tab PO DAILY 0RF Flovent HFA 110 mcg/actuation Hfa Aerosol Inhaler 1 puff INHALATION BID 0RF Lantus U-100 Insulin 100 unit/mL Solution 14 unit subcut DAILY Qty: 3 0RF Rx Instructions: replaces prior dose of 24 units daily sennosides [senna] 8.6 mg tablet 1 - 2 tab PO BEDTIME PRN (Reason: constipation) 0RF Retacrit 10,000 unit/mL Solution 10,000 unit SUBCUT WE@1000 0RF nicotine 21 mg/24 hr patch 24 hour 1 patch topical DAILY 0RF Interventions: ED Discharge Assessment Last Done: 08/30/21 20:21 Discharge Date/Time: 08/30/21 20:21
[2021-08-30] MEDS: Dicyclomine HCl 10 MG CAPSULE 20 MG PO (19:38)
== END 2021-08-30 20:21 | disposition home or self-care (01) ==
PROVIDERS: Emergency Provider Internal Medicine
DX: K59.00 Constipation, unspecified (principal); R10.9 Unspecified abdominal pain; E11.22 Type 2 diabetes mellitus with diabetic chronic kidney disease; I13.2 Hypertensive heart and chronic kidney disease with heart failure and with stage 5 chronic kidney disease, or end stage renal disease; I50.30 Unspecified diastolic (congestive) heart failure; N18.6 End stage renal disease; Z99.2 Dependence on renal dialysis; Z79.4 Long term (current) use of insulin; Z79.899 Other long term (current) drug therapy
CPT/HCPCS: 36415; 74018; 80053; 85025; 93005; 99283

== ENCOUNTER 2021-09-18 14:28 | Inpatient (IN) | payer OTHER, MEDICAID, SELFPAY ==
[2021-09-18] VITALS (7 sets, daily range): BP systolic 143–183; BP diastolic 64–79; PULSE 69–88; RESP 13–24; TEMP 36.6–37.1; O2SAT 89–100; BMI 30.5
--- NOTE | ~2021-09-18 | US_ITS ---
EXAMINATION: US VENOUS ULTRASOUND WITH DOPPLER LOWER EXTREMITY, BILATERAL CLINICAL INFORMATION: Pain COMPARISON: None TECHNIQUE: Ultrasound of the deep veins is performed from the hip to the calf with compression sonography and color and pulse Doppler assessment. Spectral analysis with color-flow imaging is performed. FINDINGS: RIGHT: There is normal venous compression and respiratory variation and augmented flow. The visualized common femoral vein, superficial femoral vein, profunda femoral vein, popliteal vein, and the trifurcation region shows no evidence of deep venous thrombosis. There is no significant popliteal fossa cyst. Significant subcutaneous edema in the calf. LEFT: There is normal venous compression and respiratory variation and augmented flow. The visualized common femoral vein, superficial femoral vein, profunda femoral vein, popliteal vein, and the trifurcation region shows no evidence of deep venous thrombosis. There is no significant popliteal fossa cyst. Significant subcutaneous edema in the left calf. If the patient's symptoms persist, followup ultrasound in 5 days 7 days might be of value to exclude proximal propagation from a non-visualized calf vein. US/US venous duplex LE BI IMPRESSION: No DVT demonstrated in the bilateral lower extremity. Significant subcutaneous edema in the bilateral calves.
--- NOTE | ~2021-09-18 | CT_ITS ---
EXAMINATION: CT ABDOMEN AND PELVIS WITHOUT CONTRAST CLINICAL INFORMATION: pt c abd pain and constipation x 4 days . COMPARISON: 08/11/2021. TECHNIQUE: Multidetector volumetric imaging was performed from the superior aspect of the liver through the pubic symphysis without contrast per request. Sagittal and coronal reformatted images were obtained on the technologist workstation. This CT examination was performed using dose optimization techniques as appropriate, variously including the following: *Automated exposure control *Adjustment of mA and/or kV according to patient size (this includes techniques or standardized protocols for targeted exams where dose is matched to indication/reason for exam; i.e. extremities or head) *Use of iterative reconstruction technique DLP: 762 mGy-cm. FINDINGS: LUNG BASES: Small right pleural effusion with basilar markings more likely due to atelectasis. PERITONEAL SPACE: Moderate volume of ascites, increased from the prior study LIVER, GALLBLADDER, BILIARY TREE: The non-contrast liver is normal in size, shape, and attenuation. No focal hepatic lesion or biliary ductal dilatation is present. Gallbladder surgically absent PANCREAS: Atrophic SPLEEN: Unremarkable. ADRENAL GLANDS: Unremarkable. KIDNEYS AND URETERS: Low-attenuation cyst in the upper pole of the left kidney again noted. Otherwise the kidneys are normal in size, shape, and attenuation. No hydronephrosis, hydroureter, or calculi seen. No perinephric stranding. BLADDER: Decompressed GASTROINTESTINAL TRACT: Distal colon is mostly decompressed colon is redundant. No obvious colonic wall thickening or pericolonic inflammatory change in this setting. Normal-appearing appendix. Visualized small bowel grossly unremarkable ABDOMINAL WALL: Diffuse anasarca, increased from the prior study LYMPHOVASCULAR STRUCTURES: Vascular calcification within the aorta iliac system. Prominent retroperitoneal and mesenteric lymph nodes but no bulky adenopathy. PELVIC VISCERA: Unremarkable. OSSEUS STRUCTURES: Mild degenerative changes in the spine similar to the prior CT scan CT/CT abdomen pelvis wo con IMPRESSION: Worsened anasarca and ascites when compared to the prior examination. Stool seen throughout the more proximal to mid colon with relatively decompressed distal colon. No obstructive changes seen.
--- NOTE | ~2021-09-18 | XR_ITS ---
EXAMINATION: XR CHEST CLINICAL INFORMATION: Chest pain and shortness of breath. COMPARISON: 08/06/2021 chest radiograph. TECHNIQUE: 2 views of the chest were obtained. FINDINGS: Support devices: Right-sided large-bore central venous catheter with tip terminating in the right atrium. Low lung volumes and evaluation. There is mild prominence of the pulmonary valve suture. The heart and mediastinal structures are unremarkable. XR/XR chest 2V IMPRESSION: Mild prominence of the pulmonary vasculature, similar to previous studies could be baseline for the patient. Mild congestion cannot be excluded.
--- NOTE | 2021-09-18 14:57 | ECG_ITS ---
Test Reason : WEAKNESS/PAIN Blood Pressure : / mmHG Vent. Rate : 074 BPM Atrial Rate : 074 BPM P-R Int : 170 ms QRS Dur : 086 ms QT Int : 428 ms P-R-T Axes : 055 -06 029 degrees QTc Int : 475 ms Normal sinus rhythm Possible Left atrial enlargement Possible Anterior infarct , age undetermined Abnormal ECG When compared with ECG of 30-AUG-2021 14:36, No significant change was found Referred By: Myah Somers Electronically Signed By:Charan Hankins
--- NOTE | 2021-09-18 15:20 | ED_ITS ---
HPI - General Adult General Chief complaint: Chest Pain Stated complaint: GENERAL MALAISE Time Seen by Provider: 09/18/21 14:50 Source: patient and EMS Mode of arrival: EMS Limitations: language barrier (Chinese-speaking) History of Present Illness HPI narrative: 66-year-old with a past medical history of hypertension, CHF, end-stage renal disease on dialysis on Sunday//Sunday reports that she went yesterday although and prior reports it appears that she is noncompliant with her dialysis, hepatitis and anemia presenting to the ED via EMS with multiple complaints which include resolved chest pain, shortness of breath, cough, abdominal pain/distension, constipation and worsening lower extremity for the past 4 days worse today. Denies any fevers, chills, dizziness, headaches, neck pain/stiffness, dyspnea on exertion, orthopnea, palpitations, paresthesias, radiation of the abdominal pain, back pain, dysuria, hematuria, abnormal vaginal discharge, black or bloody stools, recent travel or sick contacts or any other symptoms complaints or concerns at this time. MD complaint: Multiple complaints:Chest pain/SOB/cough/abd pain/constipation Onset (ago): day(s) (4) Related Data Home Medications Medication Instructions Recorded Confirmed buprenorphine 8 mg-naloxone 2 mg 1 strip SUBLINGUAL BID 10/22/20 08/08/21 sublingual film (Suboxone) diltiazem HCl 180 mg 360 mg PO DAILY 10/22/20 08/08/21 capsule,extended release 24 hr tiotropium bromide 18 mcg capsule 1 cap INHALATION DAILY 10/22/20 08/08/21 with inhalation device (Spiriva with HandiHaler) olanzapine 10 mg tablet 10 mg PO BEDTIME 02/25/21 08/08/21 bumetanide 2 mg tablet 2 mg PO DAILY 04/15/21 08/08/21 fluticasone propionate 110 1 puff INHALATION BID 04/15/21 08/08/21 mcg/actuation HFA aerosol inhaler (Flovent HFA) melatonin 5 mg tablet 5 mg PO BEDTIME PRN 04/15/21 08/08/21 pantoprazole 40 mg tablet,delayed 40 mg PO DAILY 04/15/21 08/08/21 release vitamin B comp no.3-folic acid 1 1 tab PO DAILY 04/15/21 08/08/21 mg-vit C 60 mg-biotin 300 mcg tablet ([employer]) epoetin kateryna-epbx 10,000 unit/mL 10,000 unit SUBCUT WE@1000 05/11/21 08/08/21 injection solution (Retacrit) sennosides 8.6 mg tablet (senna) 1 - 2 tab PO BEDTIME PRN 05/11/21 08/08/21 acetaminophen 500 mg tablet 500 mg PO Q8H PRN 06/10/21 08/08/21 sevelamer carbonate 800 mg tablet 800 mg PO TID 06/10/21 08/08/21 triamcinolone acetonide 0.025 % 1 appl TOPICAL BID 06/10/21 08/08/21 topical cream nicotine 21 mg/24 hr daily 1 patch TOPICAL DAILY 06/18/21 08/08/21 transdermal patch clonidine HCl 0.2 mg tablet 0.2 mg PO BID 07/27/21 08/08/21 hydralazine 50 mg tablet 1 tab PO TID 07/27/21 08/08/21 insulin aspart U-100 100 unit/mL 1 sliding scale dose SUBCUT 07/27/21 08/08/21 subcutaneous cartridge (Novolog USEASDIRECTD PenFill U-100 Insulin aspart) trazodone 100 mg tablet 1 - 2 tab PO BEDTIME PRN 08/08/21 08/08/21 Previous Rx's Medication Instructions Recorded amlodipine 10 mg tablet 10 mg PO BEDTIME #30 tab 03/07/21 insulin glargine 100 unit/mL 14 unit (0.14 mL) SUBCUT DAILY #3 04/19/21 subcutaneous solution (Lantus ml U-100 Insulin) docusate sodium 100 mg capsule 100 mg PO DAILY 30 Days #30 cap 08/12/21 (Colace) levofloxacin 500 mg tablet 500 mg PO Q24H 4 Days #4 tab 08/12/21 metronidazole 500 mg tablet 500 mg PO Q8H 4 Days #12 tab 08/12/21 polyethylene glycol 3350 17 17 g PO DAILY 30 Days #510 g 08/12/21 gram/dose oral powder (Miralax) bisacodyl 5 mg tablet,delayed 10 mg PO BEDTIME 2 Days #20 tab 08/30/21 release (Dulcolax (bisacodyl)) Allergies Allergy/AdvReac Type Severity Reaction Status Date / Time No Known Allergies Allergy Mild NOT Verified 08/30/21 14:53 APPLICABLE Review of Systems 2 Review of Systems: Constitutional : + fatigue/malaise, No Weight loss, No Fever, No Chills, No Night Sweats ENT/Mouth : No Hearing loss, No Ear Pain, No Nasal Congestion, No Sinus Pain, No Hoarseness, No sore throat, No Rhinorrhea, No Swallowing Difficulty Eyes: No Eye Pain, No Swelling, No Redness, No Foreign Body, No Discharge, No Vision Changes Cardiovascular : + resolved Chest Pain, + SOB, No Dyspnea on Exertion, No Orthopnea, + LE Edema, No Palpitations Respiratory : No Cough, No Sputum, No Wheezing, No Smoke Exposure, No Dyspnea Gastrointestinal : + abdominal pain/constipation, No Nausea, No Vomiting, No Diarrhea, No Hematochezia, No Melena Genitourinary : no irregular bleeding, No Dysuria, No Urinary Frequency, No Hematuria, No Urinary Incontinence, No Urgency, No Flank Pain, No Urinary Flow Changes, No Hesitancy Musculoskeletal : No joint pain, No Myalgias, No Joint Swelling Skin : No Skin Lesions, No rash Neuro : No Weakness, No Numbness, No Paresthesias, No Loss of Consciousness, No Dizziness, No Headache Psych : No Anxiety/Panic, No Depression, No SI/HI/AH/VH, No Social Issues, Heme/Lymph: No Bruising, No Bleeding,No Lymphadenopathy Endocrine : No Polyuria, No Polydipsia, No Temperature Intolerance Yes all other systems are reviewed and are negative [facility] Past Medical History Attestation statement: The following information was validated with the patient. Medical History Acute kidney injury superimposed on chronic kidney disease VANDANA (acute kidney injury) Anemia in chronic kidney disease CHF (congestive heart failure) CHF (congestive heart failure) CKD (chronic kidney disease) Constipation Diabetes mellitus Diastolic congestive heart failure End-stage renal disease (ESRD) ESRD (end stage renal disease) on dialysis Essential hypertension HTN (hypertension) HTN (hypertension) Hypertension Non-compliance Normocytic anemia Surgical History No pertinent past surgical history Family History Family History Other Hypertension Social History Social History Household Members: None Housing: Assisted Living Facility Do you presently have visiting nurse or other home services: Yes (visiting nurse/[employer]) Alcohol intake: unknown Patient Tobacco Use Status: Current everyday Tobacco user Tobacco use type: Cigarette Cigarette Packs Per Day: 1 Cigarettes Per Day: 5 Years Smoked: 18 e-Cigarette/Vaping Use: Never Used Second Hand Smoke Exposure: No Substance Use Type: Heroin Advance Directives: No Advance Directives Information Provided: No Advance Directives Date on File: 04/20/21 service: No Current occupational status: disabled Physical Exam ED Vital Signs: Vital Signs - 24 hr 09/18/21 14:55 09/18/21 16:54 09/18/21 17:21 Temperature 98.8 F 97.8 F Pulse Rate 69 85 87 Respiratory Rate 18 24 H 24 H Blood Pressure 143/64 H Pulse Oximetry 96 91 L 89 L 09/18/21 17:37 Temperature Pulse Rate 82 Respiratory Rate 22 H Blood Pressure Pulse Oximetry BMI result Body Mass Index 30.5 vital signs have been reviewed as normal and appeared to be correct. Blood pressure 143/64. Heart rate normal. Respiration rate normal. Temperature normal. Oxygen saturation normal. Appearance: Alert. Oriented X3. No acute distress. Head: Normal external exam. Normocephalic. Atraumatic. Eyes: PERRLA. EOMI. Conjunctiva and sclera normal. Eyelids normal. ENT: Pharynx normal. Uvula midline. Moist mucous membranes. No lesions/ulcerations or masses noted on the tongue. Normal voice. No trismus n oted. No drooling noted. No muffled voice noted. Neck: Normal inspection. Neck supple. FROM. No adenopathy. Thyroid Normal. No meningeal signs. No neck mass noted. CVS: Normal heart rate and rhythm. Heart sound normal. Pulses normal throughout. No murmurs/rales/gallops. Respiratory: No respiratory distress. Painless inspiration. Breath sounds normal. No wheezes/rales/rhonchi noted. Chest nontender. No crepitus is noted. No signs of trauma noted. No accessory muscle usage noted or decreased air movement noted. Abdomen: Soft and moderate tenderness palpation diffusely with distension with guarding. Decreased bowel sounds noted. No organomegaly noted. No visible injury noted. Back: No CVA tenderness. Full range of motion noted. Nontender. No signs of trauma. Patient neuro intact bilaterally and distally on all 4 extremities. Patient's reflexes intact bilaterally and distally on all 4 extremities. No rashes/lesion/induration/fluctuance or signs of infection noted. Skin: Skin warm and dry. Normal skin color. Normal skin turgor. No rashes/lesions/lacerations noted. Extremities: Patient has +3 lower extremity pitting edema bilaterally. No calf tenderness is noted. Extremities exhibit normal range of motion and nontender. Neuro: Oriented X 3. No motor deficit. No sensory deficit. Reflexes normal. Normal steady gait. No focal neuro deficits noted. CN's II-XII intact bilaterally? Vascular: + radial pulses/+ 2 distal pedal pulses/+2 dorsalis pedis b/l. Normal cap refill. No cyanosis noted to upper extremity nails and lower extremity toes nails. Course Course Course Narrative: 15pm - 66-year-old with a past medical history of hypertension, CHF, end-stage renal disease on dialysis on Sunday//Sunday reports that she went yesterday although and prior reports it appears that she is noncompliant with her dialysis, hepatitis and anemia presenting to the ED via EMS with multiple complaints which include resolved chest pain, shortness of breath, cough, abdominal pain/distension, constipation and worsening lower extremity for the past 4 days worse today. Plan: Labs, blood cultures, lactic acid, chest x-ray, CT scan abdomen pelvis without contrast due to patient's kidney function, EKG, COVID swab, flu swab, venous duplex ultrasound of bilateral lower extremity and re-evaluate. Reevaluation(s) Reevaluation #1: - labs reviewed patient with a mild baseline anemia which is improved when compared to prior. Sodium 130 although patient has had intermittent episodes of low sodium. Chloride 95. Creatinine 5.71 which is worse when compared to prior although she has been worse in the past. Random glucose 142. Calcium 8.3. Alkaline phosphate 144. Troponin 44.9 will repeat in 3 hours. BNP 2357. Total protein 6.2. Albumin 3.2. - chest x-ray revealed mild prominence of pulmonary vasculature similar to previous studies could be baseline for the patient mild congestion cannot be excluded otherwise no other acute processes were noted - CT scan abdomen pelvis without IV contrast revealed worsening anasarca and ascites when compared to prior examination. Stool seen throughout the proximal to mid colon with decompressed distal colon no obstructive changes seen. - therefore at this time will provide some Lasix as patient reports she does make some urine and she is reporting some shortness of breath and her O2 saturations 91% on room air. Will plan to admit for anasarca/ascites/fluid overload requiring dialysis. I believe the patient did not actually go to dialysis yesterday although she reports that she went then she told me that she does not remember. Time: 16:51 Medical Decision Making Medical Records Medical records reviewed: Yes I reviewed the patient's medical records. Lab Data Lab results reviewed: Yes I reviewed the patient's lab results. Result diagrams: 09/18/21 15:34 09/18/21 15:34 Labs: Lab Results 09/18/21 09/18/21 09/18/21 Range/Units 15:34 15:34 15:34 WBC 9.3 (4.8-10.8) X10*3/uL RBC 3.62 L (4.20-5.50) X10*6/uL Hgb 10.7 L (12.0-16.0) g/dl Hct 34.6 L (37.0-47.0) % MCV 95.6 (80.0-98.0) fL MCH 29.6 (27.0-33.0) pg MCHC 30.9 L (31.0-35.0) g/dl RDW 15.8 (11.0-16.0) % Plt Count 256 (160-400) X10*3/uL MPV 9.5 (9.4-12.3) fL Immature Gran % (Auto) 0.3 (0.0-0.4) % Neut % (Auto) 82.2 H (45-73) % Lymph % (Auto) 7.9 L (20-40) % [place] % (Auto) 7.0 (2-11) % Eos % (Auto) 2.4 (0-4) % Baso % (Auto) 0.2 (0-2) % Lymph # (Auto) 0.7 L (1.2-4.9) X10*3/uL [place] # (Auto) 0.7 (0.1-1.2) X10*3/uL Eos # (Auto) 0.2 (0.0-0.4) X10*3/uL Baso # (Auto) 0.0 (0.0-0.2) X10*3/uL Abs Immat Gran (auto) 0.03 (0.00-0.03) X10*3/uL Absolute Neuts (auto) 7.6 (2.0-8.3) x10*3/uL Absolute Nucleated RBC 0.000 (0.0-0.012) X10*3/uL Nucleated RBC % (auto) 0.0 (0.0-0.2) /100WBC PT 10.7 (9.9-13.0) SEC INR 0.9 (0.9-1.1) Sodium 130 L (135-145) mmol/L Potassium 4.6 (3.3-5.1) mmol/L Chloride 95 L (96-108) mmol/L Carbon Dioxide 23 (22-29) mmol/L Anion Gap 17 (12-20) BUN 16 D (9-16) mg/dL Creatinine 5.71 H* (0.5-1.4) mg/dL Estim Creat Clear Calc 10.8 Estimated GFR 7 Random Glucose 142 H (60-115) mg/dL Lactic Acid (0.5-2.0) mmol/L Calcium 8.3 L (8.4-10.2) mg/dL Magnesium 2.1 (1.6-2.6) mg/dL Total Bilirubin 0.4 (0.0-1.0) mg/dL AST 21 (5-31) U/L ALT 8 (0-31) U/L Alkaline Phosphatase 144 H (39-117) U/L Troponin I High Sens (<3.5-17.0) ng/L B-Natriuretic Peptide (<100) pg/mL Total Protein 6.2 L (6.5-8.0) g/dL Albumin 3.2 L (3.5-5.0) g/dL COVID-19 (KRYSTINA) (Negative) COVID-19 Clin Com Influenza Type A (JERALD) (Negative) Influenza Type B (JERALD) (Negative) Influenza A & B Note 09/18/21 09/18/21 09/18/21 Range/Units 15:34 15:34 15:35 WBC (4.8-10.8) X10*3/uL RBC (4.20-5.50) X10*6/uL Hgb (12.0-16.0) g/dl Hct (37.0-47.0) % MCV (80.0-98.0) fL MCH (27.0-33.0) pg MCHC (31.0-35.0) g/dl RDW (11.0-16.0) % Plt Count (160-400) X10*3/uL MPV (9.4-12.3) fL Immature Gran % (Auto) (0.0-0.4) % Neut % (Auto) (45-73) % Lymph % (Auto) (20-40) % [place] % (Auto) (2-11) % Eos % (Auto) (0-4) % Baso % (Auto) (0-2) % Lymph # (Auto) (1.2-4.9) X10*3/uL [place] # (Auto) (0.1-1.2) X10*3/uL Eos # (Auto) (0.0-0.4) X10*3/uL Baso # (Auto) (0.0-0.2) X10*3/uL Abs Immat Gran (auto) (0.00-0.03) X10*3/uL Absolute Neuts (auto) (2.0-8.3) x10*3/uL Absolute Nucleated RBC (0.0-0.012) X10*3/uL Nucleated RBC % (auto) (0.0-0.2) /100WBC PT (9.9-13.0) SEC INR (0.9-1.1) Sodium (135-145) mmol/L Potassium (3.3-5.1) mmol/L Chloride (96-108) mmol/L Carbon Dioxide (22-29) mmol/L Anion Gap (12-20) BUN (9-16) mg/dL Creatinine (0.5-1.4) mg/dL Estim Creat Clear Calc Estimated GFR Random Glucose (60-115) mg/dL Lactic Acid 0.7 (0.5-2.0) mmol/L Calcium (8.4-10.2) mg/dL Magnesium (1.6-2.6) mg/dL Total Bilirubin (0.0-1.0) mg/dL AST (5-31) U/L ALT (0-31) U/L Alkaline Phosphatase (39-117) U/L Troponin I High Sens 44.9 H (<3.5-17.0) ng/L B-Natriuretic Peptide 2357 H (<100) pg/mL Total Protein (6.5-8.0) g/dL Albumin (3.5-5.0) g/dL COVID-19 (KRYSTINA) (Negative) COVID-19 Clin Com Influenza Type A (JERALD) Negative (Negative) Influenza Type B (JERALD) Negative (Negative) Influenza A & B Note See Note 09/18/21 Range/Units 15:35 WBC (4.8-10.8) X10*3/uL RBC (4.20-5.50) X10*6/uL Hgb (12.0-16.0) g/dl Hct (37.0-47.0) % MCV (80.0-98.0) fL MCH (27.0-33.0) pg MCHC (31.0-35.0) g/dl RDW (11.0-16.0) % Plt Count (160-400) X10*3/uL MPV (9.4-12.3) fL Immature Gran % (Auto) (0.0-0.4) % Neut % (Auto) (45-73) % Lymph % (Auto) (20-40) % [place] % (Auto) (2-11) % Eos % (Auto) (0-4) % Baso % (Auto) (0-2) % Lymph # (Auto) (1.2-4.9) X10*3/uL [place] # (Auto) (0.1-1.2) X10*3/uL Eos # (Auto) (0.0-0.4) X10*3/uL Baso # (Auto) (0.0-0.2) X10*3/uL Abs Immat Gran (auto) (0.00-0.03) X10*3/uL Absolute Neuts (auto) (2.0-8.3) x10*3/uL Absolute Nucleated RBC (0.0-0.012) X10*3/uL Nucleated RBC % (auto) (0.0-0.2) /100WBC PT (9.9-13.0) SEC INR (0.9-1.1) Sodium (135-145) mmol/L Potassium (3.3-5.1) mmol/L Chloride (96-108) mmol/L Carbon Dioxide (22-29) mmol/L Anion Gap (12-20) BUN (9-16) mg/dL Creatinine (0.5-1.4) mg/dL Estim Creat Clear Calc Estimated GFR Random Glucose (60-115) mg/dL Lactic Acid (0.5-2.0) mmol/L Calcium (8.4-10.2) mg/dL Magnesium (1.6-2.6) mg/dL Total Bilirubin (0.0-1.0) mg/dL AST (5-31) U/L ALT (0-31) U/L Alkaline Phosphatase (39-117) U/L Troponin I High Sens (<3.5-17.0) ng/L B-Natriuretic Peptide (<100) pg/mL Total Protein (6.5-8.0) g/dL Albumin (3.5-5.0) g/dL COVID-19 (KRYSTINA) Negative (Negative) COVID-19 Clin Com See Note Influenza Type A (JERALD) (Negative) Influenza Type B (JERALD) (Negative) Influenza A & B Note Imaging Data Chest x-ray: Attestation: I personally reviewed and interpreted this imaging study as follows: Radiologist's impression: FINDINGS: Support devices: Right-sided large-bore central venous catheter with tip terminating in the right atrium. Low lung volumes and evaluation. There is mild prominence of the pulmonary valve suture. The heart and mediastinal structures are unremarkable. XR/XR chest 2V IMPRESSION: Mild prominence of the pulmonary vasculature, similar to previous studies could be baseline for the patient. Mild congestion cannot be excluded. CT scan abdomen pelvis without IV contrast: Attestation: I personally reviewed and interpreted this imaging study as follows: Radiologist's impression: FINDINGS: LUNG BASES: Small right pleural effusion with basilar markings more likely due to atelectasis. PERITONEAL SPACE: Moderate volume of ascites, increased from the prior study LIVER, GALLBLADDER, BILIARY TREE: The non-contrast liver is normal in size, shape, and attenuation. No focal hepatic lesion or biliary ductal dilatation is present.? Gallbladder surgically absent PANCREAS: Atrophic SPLEEN: Unremarkable. ADRENAL GLANDS: Unremarkable. KIDNEYS AND URETERS: Low-attenuation cyst in the upper pole of the left kidney again noted. Otherwise the kidneys are normal in size, shape, and attenuation. No hydronephrosis, hydroureter, or calculi seen. No perinephric stranding. BLADDER: Decompressed GASTROINTESTINAL TRACT: Distal colon is mostly decompressed colon is redundant. No obvious colonic wall thickening or pericolonic inflammatory change in this setting. Normal-appearing appendix. Visualized small bowel grossly unremarkable ABDOMINAL WALL: Diffuse anasarca, increased from the prior study LYMPHOVASCULAR STRUCTURES: Vascular calcification within the aorta iliac system. Prominent retroperitoneal and mesenteric lymph nodes but no bulky adenopathy. PELVIC VISCERA: Unremarkable. OSSEUS STRUCTURES: Mild degenerative changes in the spine similar to the prior CT scan CT/CT abdomen pelvis wo con IMPRESSION: Worsened anasarca and ascites when compared to the prior examination. Stool seen throughout the more proximal to mid colon with relatively decompressed distal colon. No obstructive changes seen. ? ECG Data Attestation: I personally reviewed and interpreted this ECG as follows: Interpretation: Normal sinus rhythm with ventricular rate of 74 with left atrial enlargement nonspecific ST abnormalities no acute ischemic change are noted. Similar compared to prior EKG 08/30/2021. Critical Care Time Critical Care Time Critical Care Time: Yes Total Critical Care Time: 60 Attestation: I personally attest to this time spent taking care of the patient Discharge Plan Discharge Clinical Impression: Anasarca, Abdominal pain, Bilateral edema of lower extremity, Ascites, End stage renal disease on dialysis, Constipation, Fluid overload Patient Disposition: Admitted As Inpatient
[2021-09-18 15:45] LABS: MANUAL DIFF FLAG NO
[2021-09-18 15:47] LABS: Basophils Percent Auto 0.2 % (0-2); Eosinophils Absolute Auto 0.2 X10*3/uL (0.0-0.4); Eosinophils Percent Auto 2.4 % (0-4); Hematocrit 34.6 % (37.0-47.0); Hemoglobin 10.7 g/dl (12.0-16.0); Imm Gran Abs Auto 0.03 X10*3/uL (0.00-0.03); Imm Gran Pct Auto 0.3 % (0.0-0.4); Lymphocytes Absolute Auto 0.7 X10*3/uL (1.2-4.9); Lymphocytes Percent Auto 7.9 % (20-40); Mean Corpuscular HGB Conc 30.9 g/dl (31.0-35.0); Mean Corpuscular Hemoglobin 29.6 pg (27.0-33.0); Mean Corpuscular Volume 95.6 fL (80.0-98.0); Mean Platelet Volume 9.5 fL (9.4-12.3); Monocytes Absolute Auto 0.7 X10*3/uL (0.1-1.2); Neutrophils Absolute Auto 7.6 x10*3/uL (2.0-8.3); Neutrophils Percent Auto 82.2 % (45-73); Platelet Count 256 X10*3/uL (160-400); Red Blood Count 3.62 X10*6/uL (4.20-5.50); Red Cell Distribution Width 15.8 % (11.0-16.0); White Blood Count 9.3 X10*3/uL (4.8-10.8)
[2021-09-18 15:57] LABS: Lactic Acid 0.7 mmol/L (0.5-2.0)
[2021-09-18 15:58] LABS: INTERNATIONAL NORM RATIO 0.9 (0.9-1.1); Prothrombin Time 10.7 SEC (9.9-13.0)
[2021-09-18 16:06] LABS: Troponin-I High Sensitivity 44.9 ng/L (<3.5-17.0)
[2021-09-18 16:09] LABS: COVID-19 Test Negative (Negative); IDNOW Serial# 16C4AD1C; Influenza A Negative (Negative); Influenza B2 Negative (Negative)
[2021-09-18 16:09] LABS: Alanine Aminotransferase 8 U/L (0-31); Albumin Level 3.2 g/dL (3.5-5.0); Alkaline Phosphatase 144 U/L (39-117); Anion Gap 17 (12-20); Aspartate Amino Transferase 21 U/L (5-31); Bilirubin Total 0.4 mg/dL (0.0-1.0); Blood Urea Nitrogen 16 mg/dL (9-16); Calcium 8.3 mg/dL (8.4-10.2); Carbon Dioxide 23 mmol/L (22-29); Chloride 95 mmol/L (96-108); Creatinine Clr Calc Pharmacy 10.8; Estimated Glomerular Filt Rate 7; Glucose Random 142 mg/dL (60-115); Magnesium 2.1 mg/dL (1.6-2.6); Potassium 4.6 mmol/L (3.3-5.1); Sodium 130 mmol/L (135-145); Total Protein 6.2 g/dL (6.5-8.0)
--- NOTE | 2021-09-18 16:57 | PC.NURSE ---
pts came to ER with dialysis port not with dressing
[2021-09-18] MEDS: Furosemide 40 MG/4 ML VIAL IVPUSH (17:15)
[2021-09-18 17:20] LABS: B Type Natriuretic Peptide 2357 pg/mL (<100)
[2021-09-18] MEDS: Albuterol Sulfate (0.083%) 2.5 MG/3 ML VIAL.NEB 10 MG INHALE (17:35)
[2021-09-18] MEDS: cefTRIAXone sodium 2 GM in 0.9 % Sodium Chloride 50 ML IV (17:46)
--- NOTE | 2021-09-18 17:54 | PHA.MEDREC ---
Pharmacy Consult ? Medication Reconciliation Pharmacy has completed the medication reconciliation. Patient was disorientated and wasn't able to tell me any of the medications she takes. I called her son and left a voicemail for him to contact the pharmacy. I completed the med rec based on a recent discharge and external pharmacy fill history.
--- NOTE | 2021-09-18 18:27 | PM.IMHP ---
History of Present Illness Date of Service: 09/18/21 Chief Complaint: dyspnea, abd/leg swelling This history was taken in [place] from the patient. 66yo F with ESRD on HD TuThSa, anemia of ESRD, HFpEF, HTN, DM presenting with 4 days of worsening dyspnea, cough, non-exertional chest pressure, painful abdominal distension, leg swelling, and constipation. She is unable to remember whether she went to HD yesterday but states at the same time that she does not miss HD, though the EHR suggests otherwise. Currently denies chest pain. Noted to have worsening ascites and anasarca with pulmonary vascular congestion on CXR. Mildly hypoxic to 89% on RA. She still makes a little urine and is on oral bumetanide; she was given IV furosemide in the ED plus a 10 mg continuous albuterol nebulization treatment. Her dyspnea has improved. Review of Systems Review of Systems: Yes all other systems are reviewed and are negative [facility] Medical History Acute kidney injury superimposed on chronic kidney disease VANDANA (acute kidney injury) Anemia in chronic kidney disease CHF (congestive heart failure) CHF (congestive heart failure) CKD (chronic kidney disease) Constipation Diabetes mellitus Diastolic congestive heart failure End-stage renal disease (ESRD) ESRD (end stage renal disease) on dialysis Essential hypertension HTN (hypertension) HTN (hypertension) Hypertension Non-compliance Normocytic anemia Family History Other Hypertension Surgical History No pertinent past surgical history Social History Household Members: None Housing: Assisted Living Facility Do you presently have visiting nurse or other home services: Yes (visiting nurse/SHUTDOWN COORDINATOR) Alcohol intake: unknown Patient Tobacco Use Status: Current everyday Tobacco user Tobacco use type: Cigarette Cigarette Packs Per Day: 1 Cigarettes Per Day: 5 Years Smoked: 18 e-Cigarette/Vaping Use: Never Used Second Hand Smoke Exposure: No Substance Use Type: Heroin Advance Directives: No Advance Directives Information Provided: No Advance Directives Date on File: 04/20/21 service: No Current occupational status: disabled Meds Allergies Allergy/AdvReac Type Severity Reaction Status Date / Time No Known Allergies Allergy Mild NOT Verified 08/30/21 14:53 APPLICABLE Active Medications: Current Medications Acetaminophen (Acetaminophen 325 Mg Tablet) 650 mg PO Q6H PRN PRN Reason: Pain, Mild (Pain Scale 1-3) Amlodipine Besylate (Amlodipine Besylate 10 Mg Tablet) 10 mg PO BEDTIME PHAN; Protocol Bisacodyl (Bisacodyl 5 Mg Tablet.) 10 mg PO BEDTIME PHAN Bumetanide (Bumetanide 1 Mg Tablet) 2 mg PO DAILY PHAN; Protocol Buprenorphine/Naloxone (Buprenorphine/Naloxone 8/2 Mg Film) 1 film SUBLINGUAL BID [facility] Clonidine HCl (Clonidine Hcl 0.2 Mg Tablet) 0.2 mg PO BID PHAN; Protocol Diltiazem HCl (Diltiazem Hcl Cd 180 Mg Cap.Er.24h) 360 mg PO DAILY PHAN; Protocol Docusate Sodium (Docusate Sodium 100 Mg Capsule) 100 mg PO DAILY [facility] Fluticasone Propionate (Fluticasone Propionate 100 Mcg Blst.W.Dev) 1 puff INHALE RBID [facility] Heparin Sodium (Porcine) (Heparin Sodium,Porcine 5,000 Unit/Ml Vial) 5,000 unit SUBCUT Q12H [facility] Hydralazine HCl (Hydralazine Hcl 50 Mg Tablet) 50 mg PO TID PHAN; Protocol Insulin Glargine (Insulin Glargine,Hum.Rec.Anlog 100 Unit/Ml 10 Ml Vial) 7 unit SUBCUT DAILY [facility] Melatonin (Melatonin 3 Mg Tablet) 6 mg PO BEDTIME PRN PRN Reason: Sleep Multivitamins/Vitamin C (Multivitamin Tablet) 1 tab PO DAILY [facility] Nicotine (Nicotine 21 Mg Patch.Td24) 21 mg TRANSDERMA DAILY [facility] Non-Formulary Medication (Epoetin Kateryna-Epbx [Retacrit]) 10,000 unit SUBCUT WE@1000 [facility] Olanzapine (Olanzapine 10 Mg Tablet) 10 mg PO BEDTIME [facility] Omeprazole (Omeprazole 20 Mg Capsule.) 20 mg PO DAILY@0630 [facility] Ondansetron HCl (Ondansetron Hcl 4 Mg/2 Ml Vial) 4 mg IVPUSH Q8H PRN PRN Reason: Nausea and Vomiting Pharmacy Consult (Consult Rx Perform Med Rec) 1 each MISCELLANE ONCE PRN PRN Reason: Consult order Polyethylene Glycol (Polyethylene Glycol 3350 17 Gm Powd.Pack) 17 gm PO DAILY [facility] Senna (Sennosides 8.6 Mg Tablet) 8.6 mg PO BEDTIME PRN PRN Reason: constipation Sevelamer Carbonate (Sevelamer Carbonate Tablet 800 Mg Tablet) 800 mg PO TID PHAN Sodium Chloride (0.9 % Sodium Chloride Flush 3 Ml Syringe) 3 ml IVFLUSH QSHIFT PHAN Tiotropium Aurora (Tiotropium Aurora 18 Mcg Cap.W.Dev) 1 puff INHALE DAILY [facility] Trazodone HCl (Trazodone Hcl 100 Mg Tablet) 100 mg PO BEDTIME PRN PRN Reason: insomnia Triamcinolone Acetonide (Triamcinolone Acet 0.025 % Cream 15 Gm Tube) 1 appl TOPICAL BID PHAN; Protocol Home Medications Medication Instructions Recorded Confirmed Last Taken Type buprenorphine 8 mg-naloxone 2 mg 1 strip SUBLINGUAL BID 10/22/20 09/18/21 Unknown History sublingual film (Suboxone) diltiazem HCl 180 mg 360 mg PO DAILY 10/22/20 09/18/21 Unknown History capsule,extended release 24 hr tiotropium bromide 18 mcg capsule 1 cap INHALATION DAILY 10/22/20 09/18/21 Unknown History with inhalation device (Spiriva with HandiHaler) olanzapine 10 mg tablet 10 mg PO BEDTIME 02/25/21 09/18/21 Unknown History bumetanide 2 mg tablet 2 mg PO DAILY 04/15/21 09/18/21 Unknown History fluticasone propionate 110 1 puff INHALATION BID 04/15/21 09/18/21 Unknown History mcg/actuation HFA aerosol inhaler (Flovent HFA) melatonin 5 mg tablet 5 mg PO BEDTIME PRN 04/15/21 09/18/21 Unknown History pantoprazole 40 mg tablet,delayed 40 mg PO DAILY 04/15/21 09/18/21 Unknown History release vitamin B comp no.3-folic acid 1 1 tab PO DAILY 04/15/21 09/18/21 Unknown History mg-vit C 60 mg-biotin 300 mcg tablet ([employer]) epoetin kateryna-epbx 10,000 unit/mL 10,000 unit SUBCUT WE@1000 05/11/21 09/18/21 Unknown History injection solution (Retacrit) sennosides 8.6 mg tablet (senna) 1 - 2 tab PO BEDTIME PRN 05/11/21 09/18/21 Unknown History acetaminophen 500 mg tablet 500 mg PO Q8H PRN 06/10/21 09/18/21 Unknown History sevelamer carbonate 800 mg tablet 800 mg PO TID 06/10/21 09/18/21 Unknown History triamcinolone acetonide 0.025 % 1 appl TOPICAL BID 06/10/21 09/18/21 Unknown History topical cream nicotine 21 mg/24 hr daily 1 patch TOPICAL DAILY 06/18/21 09/18/21 Unknown History transdermal patch clonidine HCl 0.2 mg tablet 0.2 mg PO BID 07/27/21 09/18/21 Unknown History hydralazine 50 mg tablet 1 tab PO TID 07/27/21 09/18/21 Unknown History insulin aspart U-100 100 unit/mL 1 sliding scale dose SUBCUT 07/27/21 09/18/21 Unknown History subcutaneous cartridge (Novolog USEASDIRECTD PenFill U-100 Insulin aspart) trazodone 100 mg tablet 1 - 2 tab PO BEDTIME PRN 08/08/21 09/18/21 Unknown History insulin glargine 100 unit/mL 7 unit SUBCUT DAILY 09/18/21 09/18/21 Unknown History subcutaneous solution (Lantus U-100 Insulin) Physical Exam Vital Signs and Narrative: Vital Signs: Last Vital Signs Temp 97.8 F 09/18/21 17:21 Pulse 81 09/18/21 17:41 Resp 21 H 09/18/21 17:41 BP 183/72 H 09/18/21 17:41 Pulse Ox 89 L 09/18/21 17:21 BMI result Body Mass Index 30.5 Gen: mild resp distress, chronically ill-appearing, generalized anasarca HEENT: sclera anicteric, moist mucus membranes Neck: supple, R subclavian tunneled HD catheter Lungs: bibasilar inspiratory crackles Heart: regular rate and rhythm, no murmurs Abd: distended with fluid wave Ext: 3+ pitting edema bilateral legs Skin: warm/well-perfused Neuro: alert and oriented x3, no focal findings Psych: appropriate affect Results Labs CBC and Chem 7: 09/18/21 15:34 09/18/21 15:34 Labs: Laboratory Results - last 24 hr 09/18/21 09/18/21 09/18/21 15:34 15:34 15:34 MCV 95.6 MCH 29.6 MCHC 30.9 L RDW 15.8 Plt Count 256 MPV 9.5 Immature Gran % (Auto) 0.3 Neut % (Auto) 82.2 H Lymph % (Auto) 7.9 L [place] % (Auto) 7.0 Eos % (Auto) 2.4 Baso % (Auto) 0.2 Lymph # (Auto) 0.7 L [place] # (Auto) 0.7 Eos # (Auto) 0.2 Baso # (Auto) 0.0 Abs Immat Gran (auto) 0.03 Absolute Neuts (auto) 7.6 Absolute Nucleated RBC 0.000 Nucleated RBC % (auto) 0.0 PT 10.7 INR 0.9 Anion Gap 17 Estim Creat Clear Calc 10.8 Estimated GFR 7 Random Glucose 142 H Lactic Acid Calcium 8.3 L Magnesium 2.1 Total Bilirubin 0.4 AST 21 ALT 8 Alkaline Phosphatase 144 H Troponin I High Sens B-Natriuretic Peptide Total Protein 6.2 L Albumin 3.2 L COVID-19 (KRYSTINA) COVID-19 Clin Com Influenza Type A (JERALD) Influenza Type B (JERALD) Influenza A & B Note 09/18/21 09/18/21 09/18/21 15:34 15:34 15:35 MCV MCH MCHC RDW Plt Count MPV Immature Gran % (Auto) Neut % (Auto) Lymph % (Auto) [place] % (Auto) Eos % (Auto) Baso % (Auto) Lymph # (Auto) [place] # (Auto) Eos # (Auto) Baso # (Auto) Abs Immat Gran (auto) Absolute Neuts (auto) Absolute Nucleated RBC Nucleated RBC % (auto) PT INR Anion Gap Estim Creat Clear Calc Estimated GFR Random Glucose Lactic Acid 0.7 Calcium Magnesium Total Bilirubin AST ALT Alkaline Phosphatase Troponin I High Sens 44.9 H B-Natriuretic Peptide 2357 H Total Protein Albumin COVID-19 (KRYSTINA) COVID-19 Clin Com Influenza Type A (JERALD) Negative Influenza Type B (JERALD) Negative Influenza A & B Note See Note 09/18/21 15:35 MCV MCH MCHC RDW Plt Count MPV Immature Gran % (Auto) Neut % (Auto) Lymph % (Auto) [place] % (Auto) Eos % (Auto) Baso % (Auto) Lymph # (Auto) [place] # (Auto) Eos # (Auto) Baso # (Auto) Abs Immat Gran (auto) Absolute Neuts (auto) Absolute Nucleated RBC Nucleated RBC % (auto) PT INR Anion Gap Estim Creat Clear Calc Estimated GFR Random Glucose Lactic Acid Calcium Magnesium Total Bilirubin AST ALT Alkaline Phosphatase Troponin I High Sens B-Natriuretic Peptide Total Protein Albumin COVID-19 (KRYSTINA) Negative COVID-19 Clin Com See Note Influenza Type A (JERALD) Influenza Type B (JERALD) Influenza A & B Note Imaging Radiologist's Impressions: Impressions Abdomen/Pelvis CT 09/18/21 15:31 IMPRESSION: Worsened anasarca and ascites when compared to the prior examination. Stool seen throughout the more proximal to mid colon with relatively decompressed distal colon. No obstructive changes seen. Chest X-Ray 09/18/21 15:34 IMPRESSION: Mild prominence of the pulmonary vasculature, similar to previous studies could be baseline for the patient. Mild congestion cannot be excluded. Assessment and Plan (1) End stage renal disease on dialysis: Status: Acute (2) Fluid overload: Status: Acute Plan 66yo F with ESRD on HD TuThSa, anemia of ESRD, HFpEF, HTN, DM presenting with 4 days of worsening dyspnea, cough, non-exertional chest pressure, painful abdominal distension, leg swelling, and constipation. Historical noncompliance with HD, unclear if she went to scheduled HD yesterday. Admitting to medical service for volume overload. # hypervolemia associated with ESRD # acute/chronic HFpEF - admit to [facility]MC, consult Nephrology for dialysis, give IV furosemide # ESRD on HD # anemia of ESRD - HD as above, continue phos binder + epo # atypical chest pain - EKG NSR with MAMADOU and poor R wave progression unchanged from prior. Tn-I 44.9, likely due to ESRD + CHF, but 3-hr repeat pending # HTN - continue amlodipine, clonidine, diltiazem, hydralazine # constipation - add lactulose # DM2 - correction-dose lispro # mood disorder - olanzapine # opioid use disorder - Suboxone # tobacco abuse - NRT # VTE ppx - UFH Quality Stroke Does the patient have a stroke diagnosis?: No VTE Prior VTE?: No VTE Risk Level:: Medical - moderate - high VTE Device Contraindication: N/A - Device Ordered VTE Drug Contraindication: N/A - Med Ordered
[2021-09-18] MEDS: Furosemide 20 MG/2 ML VIAL IVPUSH (18:34)
[2021-09-18 18:58] LABS: Glucose, Whole Blood 109 mg/dL (60-115)
[2021-09-18 20:04] LABS: Troponin-I High Sensitivity 44.9 ng/L (<3.5-17.0)
[2021-09-18] MEDS: Sevelamer Carbonate Tablet 800 MG TABLET PO (21:53)
[2021-09-18] MEDS: bisacodyL 5 MG TABLET.DR 10 MG PO (21:53)
[2021-09-18] MEDS: hydrALAZINE HCl 50 MG TABLET PO (21:53)
[2021-09-18] MEDS: amLODIPine Besylate 10 MG TABLET PO (21:53)
[2021-09-18] MEDS: cloNIDine HCL 0.2 MG TABLET PO (21:53)
[2021-09-18] MEDS: Buprenorphine/Naloxone 8/2 mg FILM 1 FILM SUBLINGUAL (21:54)
[2021-09-18] MEDS: Heparin Sodium,Porcine 5,000 UNIT/ML VIAL 5000 UNIT SUBCUT (21:54)
[2021-09-18] MEDS: Lactulose 20 GM/30 ML SOLUTION 30 GM PO (21:55)
[2021-09-18 22:14] LABS: Glucose, Whole Blood 171 mg/dL (60-115)
[2021-09-18] MEDS: OLANZapine 10 MG TABLET PO (22:18)
[2021-09-18] MEDS: Insulin Lispro 100 UNIT/ML 3 ML VIAL SUBCUT (22:18)
[2021-09-19] VITALS (8 sets, daily range): BP systolic 150–188; BP diastolic 63–79; PULSE 64–76; RESP 14–18; TEMP 36.6–37; O2SAT 92–99
[2021-09-19] MEDS: Acetaminophen 325 MG TABLET 650 MG PO ×2 (04:19→16:35)
--- NOTE | 2021-09-19 07:37 | PC.NURSE ---
Pt A&Ox4, no complaints of pain at this time. NSR in the 60's on the monitor. Awaiting report to the floor. Call cruz within reach. Will continue to monitor.
[2021-09-19] MEDS: Omeprazole 20 MG CAPSULE.DR PO (07:58)
[2021-09-19] MEDS: Heparin Sodium,Porcine 5,000 UNIT/ML VIAL 5000 UNIT SUBCUT (07:58)
[2021-09-19] MEDS: Fluticasone Propionate 100 MCG BLST.W.DEV 1 PUFF INHALE ×2 (09:02→20:25)
[2021-09-19] MEDS: Docusate Sodium 100 MG CAPSULE PO (09:19)
[2021-09-19] MEDS: cloNIDine HCL 0.2 MG TABLET PO ×2 (09:19→22:04)
[2021-09-19] MEDS: Sevelamer Carbonate Tablet 800 MG TABLET PO ×3 (09:20→22:04)
[2021-09-19] MEDS: Buprenorphine/Naloxone 8/2 mg FILM 1 FILM SUBLINGUAL ×2 (09:20→22:05)
[2021-09-19] MEDS: Multivitamin TABLET 1 TAB PO (09:20)
[2021-09-19] MEDS: Nicotine 21 MG PATCH.TD24 TRANSDERMA (09:20)
[2021-09-19 09:21] LABS: Hematocrit 36.3 % (37.0-47.0); Hemoglobin 11.1 g/dl (12.0-16.0); Mean Corpuscular HGB Conc 30.6 g/dl (31.0-35.0); Mean Corpuscular Hemoglobin 29.4 pg (27.0-33.0); Mean Corpuscular Volume 96.3 fL (80.0-98.0); Mean Platelet Volume 9.5 fL (9.4-12.3); Platelet Count 280 X10*3/uL (160-400); Red Blood Count 3.77 X10*6/uL (4.20-5.50); Red Cell Distribution Width 15.9 % (11.0-16.0); White Blood Count 7.7 X10*3/uL (4.8-10.8)
[2021-09-19] MEDS: Lactulose 20 GM/30 ML SOLUTION 30 GM PO ×2 (09:21→22:05)
[2021-09-19] MEDS: Insulin Glargine,Hum.rec.anlog 100 UNIT/ML 10 ML VIAL 7 UNIT SUBCUT (09:21)
[2021-09-19] MEDS: Insulin Lispro 100 UNIT/ML 3 ML VIAL SUBCUT (09:21)
[2021-09-19] MEDS: Furosemide 40 MG/4 ML VIAL IVPUSH (09:21)
[2021-09-19 09:22] LABS: Anion Gap 16 (12-20); Blood Urea Nitrogen 22 mg/dL (9-16); Calcium 8.7 mg/dL (8.4-10.2); Carbon Dioxide 26 mmol/L (22-29); Chloride 94 mmol/L (96-108); Creatinine Clr Calc Pharmacy 9.2; Estimated Glomerular Filt Rate 6; Glucose Random 115 mg/dL (60-115); Potassium 5.1 mmol/L (3.3-5.1); Sodium 131 mmol/L (135-145)
[2021-09-19] MEDS: 0.9 % Sodium Chloride Flush 3 ML SYRINGE IVFLUSH ×2 (09:22→22:05)
[2021-09-19] MEDS: dilTIAZem HCL CD 180 MG CAP.ER.24H 360 MG PO (09:28)
[2021-09-19] MEDS: hydrALAZINE HCl 50 MG TABLET PO ×3 (09:41→22:04)
--- NOTE | 2021-09-19 09:50 | MHC.CLN ---
NUTRITION ADDED 2 GRAM SODIUM TO DIET ORDER PER DIALYSIS PARAMETERS. DIET=DIABETIC 1800 KCAL, 2 GRAM SODIUM, LOW PHOSPHORUS, LOW POTASSIUM.
[2021-09-19] MEDS: ondansetron HCL 4 MG/2 ML VIAL IVPUSH (09:56)
--- NOTE | 2021-09-19 11:21 | P.PNIM_ITS ---
Subjective Subjective Date of Service: 09/19/21 Interval History: This history was taken in Turkmen from the patient. Very little diuresis. Dyspnea improved. Review of Systems Review of Systems: Yes all other systems are reviewed and are negative Physical Exam Vital Signs: Vital Signs: Last Vital Signs Temp 98.1 F 09/19/21 08:00 Pulse 72 09/19/21 09:04 Resp 18 09/19/21 09:04 BP 168/79 H 09/19/21 08:00 Pulse Ox 96 09/19/21 08:00 BMI result Body Mass Index 30.5 Gen: mild resp distress, chronically ill-appearing, generalized anasarca HEENT: sclera anicteric, moist mucus membranes Neck: supple, R subclavian tunneled HD catheter Lungs: bibasilar inspiratory crackles Heart: regular rate and rhythm, no murmurs Abd: distended with fluid wave Ext: 3+ pitting edema bilateral legs Skin: warm/well-perfused Neuro: alert and oriented x3, no focal findings Psych: appropriate affect Objective Data Active Medications Acetaminophen (Acetaminophen 325 Mg Tablet) 650 mg PO Q6H PRN PRN Reason: Pain, Mild (Pain Scale 1-3) Last Admin: 09/19/21 04:19 Dose: 650 mg Documented by: LEELA Amlodipine Besylate (Amlodipine Besylate 10 Mg Tablet) 10 mg PO BEDTIME PHAN; Protocol Last Admin: 09/18/21 21:53 Dose: 10 mg Documented by: TYRESE Bisacodyl (Bisacodyl 5 Mg Tablet.Dr) 10 mg PO BEDTIME PHAN Last Admin: 09/18/21 21:53 Dose: 10 mg Documented by: TYRESE Buprenorphine/Naloxone (Buprenorphine/Naloxone 8/2 Mg Film) 1 film SUBLINGUAL BID PHAN Last Admin: 09/19/21 09:20 Dose: 1 film Documented by: BETTY Clonidine HCl (Clonidine Hcl 0.2 Mg Tablet) 0.2 mg PO BID PHAN; Protocol Last Admin: 09/19/21 09:19 Dose: 0.2 mg Documented by: BETTY Dextrose (Dextrose 50 % 25 Gm/50 Ml Syringe) 25 gm IVPUSH Q15M PRN; Protocol PRN Reason: per Hypoglycemia Standing Ord. Diltiazem HCl (Diltiazem Hcl Cd 180 Mg Cap.Er.24h) 360 mg PO DAILY PHAN; P rotocol Last Admin: 09/19/21 09:28 Dose: 360 mg Documented by: BETTY Docusate Sodium (Docusate Sodium 100 Mg Capsule) 100 mg PO DAILY [facility] Last Admin: 09/19/21 09:19 Dose: 100 mg Documented by: BETTY Fluticasone Propionate (Fluticasone Propionate 100 Mcg Blst.W.Dev) 1 puff INHALE RBID [facility] Last Admin: 09/19/21 09:02 Dose: 1 puff Documented by: LIA Furosemide (Furosemide 40 Mg/4 Ml Vial) 40 mg IVPUSH DAILY [facility]; Protocol Last Admin: 09/19/21 09:21 Dose: 40 mg Documented by: BETTY Glucose (Glucose Gel 15 Gm Gel..Gram.) 15 gm PO Q15M PRN; Protocol PRN Reason: per Hypoglycemia Standing Ord. Heparin Sodium (Porcine) (Heparin Sodium,Porcine 5,000 Unit/Ml Vial) 5,000 unit SUBCUT Q12H [facility] Last Admin: 09/19/21 07:58 Dose: 5,000 unit Documented by: AGUEDA Hydralazine HCl (Hydralazine Hcl 50 Mg Tablet) 50 mg PO TID [facility]; Protocol Last Admin: 09/19/21 09:41 Dose: 50 mg Documented by: BETTY Insulin Glargine (Insulin Glargine,Hum.Rec.Anlog 100 Unit/Ml 10 Ml Vial) 7 unit SUBCUT DAILY [facility] Last Admin: 09/19/21 09:21 Dose: 7 unit Documented by: BETTY Insulin Human Lispro (Insulin Lispro 100 Unit/Ml 3 Ml Vial) 0 unit SUBCUT QIDACHS [facility]; Protocol Last Admin: 09/19/21 09:21 Dose: 2 unit Documented by: BETTY Lactulose (Lactulose 20 Gm/30 Ml Solution) 30 gm PO BID [facility] Last Admin: 09/19/21 09:21 Dose: 30 gm Documented by: BETTY Melatonin (Melatonin 3 Mg Tablet) 6 mg PO BEDTIME PRN PRN Reason: Sleep Multivitamins/Vitamin C (Multivitamin Tablet) 1 tab PO DAILY [facility] Last Admin: 09/19/21 09:20 Dose: 1 tab Documented by: BETTY Nicotine (Nicotine 21 Mg Patch.Td24) 21 mg TRANSDERMA DAILY [facility] Last Admin: 09/19/21 09:20 Dose: 21 mg Documented by: BETTY Olanzapine (Olanzapine 10 Mg Tablet) 10 mg PO BEDTIME [facility] Last Admin: 09/18/21 22:18 Dose: 10 mg Documented by: TYRESE Omeprazole (Omeprazole 20 Mg Capsule.Dr) 20 mg PO DAILY@0630 [facility] Last Admin: 09/19/21 07:58 Dose: 20 mg Documented by: AGUEDA Ondansetron HCl (Ondansetron Hcl 4 Mg/2 Ml Vial) 4 mg IVPUSH Q8H PRN PRN Reason: Nausea and Vomiting Last Admin: 09/19/21 09:56 Dose: 4 mg Documented by: REBECCA Pharmacy Consult (Consult Rx Perform Med Rec) 1 each MISCELLANE ONCE PRN PRN Reason: Consult order Polyethylene Glycol (Polyethylene Glycol 3350 17 Gm Powd.Pack) 17 gm PO DAILY [facility] Last Admin: 09/19/21 09:37 Dose: Not Given Documented by: BETTY Non-Admin Reason: Patient Refused Senna (Sennosides 8.6 Mg Tablet) 8.6 mg PO BEDTIME PRN PRN Reason: constipation Sevelamer Carbonate (Sevelamer Carbonate Tablet 800 Mg Tablet) 800 mg PO TID [facility] Last Admin: 09/19/21 09:20 Dose: 800 mg Documented by: BETTY Sodium Chloride (0.9 % Sodium Chloride Flush 3 Ml Syringe) 3 ml IVFLUSH QSHIFT [facility] Last Admin: 09/19/21 09:22 Dose: 3 ml Documented by: BETTY Tiotropium Prospect (Tiotropium Prospect 18 Mcg Cap.W.Dev) 1 puff INHALE DAILY [facility] Last Admin: 09/19/21 09:01 Dose: 1 puff Documented by: LIA Trazodone HCl (Trazodone Hcl 100 Mg Tablet) 100 mg PO BEDTIME PRN PRN Reason: insomnia Triamcinolone Acetonide (Triamcinolone Acet 0.025 % Cream 15 Gm Tube) 1 appl TOPICAL BID [facility]; Protocol Last Admin: 09/18/21 22:20 Dose: Not Given Documented by: TYRESE Non-Admin Reason: Med Not Available Labs CBC & Chem 7: 09/19/21 08:48 09/19/21 08:48 Labs: Laboratory Results - last 24 hr 09/18/21 09/18/21 09/18/21 15:34 15:34 15:34 MCV 95.6 MCH 29.6 MCHC 30.9 L RDW 15.8 Plt Count 256 MPV 9.5 Immature Gran % (Auto) 0.3 Neut % (Auto) 82.2 H Lymph % (Auto) 7.9 L Whitfield % (Auto) 7.0 Eos % (Auto) 2.4 Baso % (Auto) 0.2 Lymph # (Auto) 0.7 L Whitfield # (Auto) 0.7 Eos # (Auto) 0.2 Baso # (Auto) 0.0 Abs Immat Gran (auto) 0.03 Absolute Neuts (auto) 7.6 Absolute Nucleated RBC 0.000 Nucleated RBC % (auto) 0.0 PT 10.7 INR 0.9 Anion Gap 17 Estim Creat Clear Calc 10.8 Estimated GFR 7 POC Glucose Random Glucose 142 H Lactic Acid Calcium 8.3 L Magnesium 2.1 Total Bilirubin 0.4 AST 21 ALT 8 Alkaline Phosphatase 144 H Troponin I High Sens B-Natriuretic Peptide Total Protein 6.2 L Albumin 3.2 L COVID-19 (KRYSTINA) COVID-19 Clin Com Influenza Type A (JERALD) Influenza Type B (JERALD) Influenza A & B Note 09/18/21 09/18/21 09/18/21 15:34 15:34 15:35 MCV MCH MCHC RDW Plt Count MPV Immature Gran % (Auto) Neut % (Auto) Lymph % (Auto) Whitfield % (Auto) Eos % (Auto) Baso % (Auto) Lymph # (Auto) Whitfield # (Auto) Eos # (Auto) Baso # (Auto) Abs Immat Gran (auto) Absolute Neuts (auto) Absolute Nucleated RBC Nucleated RBC % (auto) PT INR Anion Gap Estim Creat Clear Calc Estimated GFR POC Glucose Random Glucose Lactic Acid 0.7 Calcium Magnesium Total Bilirubin AST ALT Alkaline Phosphatase Troponin I High Sens 44.9 H B-Natriuretic Peptide 2357 H Total Protein Albumin COVID-19 (KRYSTINA) COVID-19 Clin Com Influenza Type A (JERALD) Negative Influenza Type B (JERALD) Negative Influenza A & B Note See Note 09/18/21 09/18/2122 15:35 18:32 19:38 MCV MCH MCHC RDW Plt Count MPV Immature Gran % (Auto) Neut % (Auto) Lymph % (Auto) Whitfield % (Auto) Eos % (Auto) Baso % (Auto) Lymph # (Auto) Whitfield # (Auto) Eos # (Auto) Baso # (Auto) Abs Immat Gran (auto) Absolute Neuts (auto) Absolute Nucleated RBC Nucleated RBC % (auto) PT INR Anion Gap Estim Creat Clear Calc Estimated GFR POC Glucose 109 Random Glucose Lactic Acid Calcium Magnesium Total Bilirubin AST ALT Alkaline Phosphatase Troponin I High Sens 44.9 H B-Natriuretic Peptide Total Protein Albumin COVID-19 (KRYSTINA) Negative COVID-19 Clin Com See Note Influenza Type A (JERALD) Influenza Type B (JERALD) Influenza A & B Note 09/18/21 09/19/21 09/19/21 22:09 08:48 08:48 MCV 96.3 MCH 29.4 MCHC 30.6 L RDW 15.9 Plt Count 280 MPV 9.5 Immature Gran % (Auto) Neut % (Auto) Lymph % (Auto) Whitfield % (Auto) Eos % (Auto) Baso % (Auto) Lymph # (Auto) Whitfield # (Auto) Eos # (Auto) Baso # (Auto) Abs Immat Gran (auto) Absolute Neuts (auto) Absolute Nucleated RBC 0.000 Nucleated RBC % (auto) 0.0 PT INR Anion Gap 16 Estim Creat Clear Calc 9.2 Estimated GFR 6 POC Glucose 171 H Random Glucose 115 Lactic Acid Calcium 8.7 Magnesium Total Bilirubin AST ALT Alkaline Phosphatase Troponin I High Sens B-Natriuretic Peptide Total Protein Albumin COVID-19 (KRYSTINA) COVID-19 Clin Com Influenza Type A (JERALD) Influenza Type B (JERALD) Influenza A & B Note Assessment and Plan (1) Anasarca: Status: Acute (2) Ascites: Status: Acute Plan hospital d#2 66yo F with ESRD on HD TuThSa, anemia of ESRD, HFpEF, HTN, DM presenting with 4 days of worsening dyspnea, cough, non-exertional chest pressure, painful abdominal distension, leg swelling, and constipation.? Historical noncompliance with HD, unclear if she went to scheduled HD yesterday.? Admitted to medical service for volume overload. # hypervolemia associated with ESRD # acute/chronic HFpEF - Nephrology consult for dialysis - add Imdur for further afterload reduction # ESRD on HD # anemia of ESRD - HD as above, continue phos binder + epo # atypical chest pain - EKG NSR with MAMADOU and poor R wave progression unchanged from prior.? Tn-I 44.9, flat/indeterminate # HTN - continue amlodipine, clonidine, diltiazem, hydralazine; add Imdur # constipation - add lactulose # DM2 - correction-dose lispro # mood disorder - olanzapine # opioid use disorder - Suboxone # tobacco abuse - NRT # VTE ppx - UFH In my clinical judgment, the patient requires continued hospitalization for the following reasons: volume overload requiring inpt HD Quality Stroke Does the patient have a stroke diagnosis?: No VTE Prior VTE?: No VTE Risk Level:: Medical - moderate - high VTE Device Contraindication: N/A - Device Ordered VTE Drug Contraindication: N/A - Med Ordered
[2021-09-19 11:39] LABS: Glucose, Whole Blood 114 mg/dL (60-115)
[2021-09-19] MEDS: Isosorbide Mononitrate 30 MG TAB.ER.24H PO (12:01)
--- NOTE | 2021-09-19 12:09 | PM.PNNEP ---
Subjective Subjective Date of Service: 09/19/21 Interval history: seen and examined Physical Exam Vital Signs: Vital Signs: Last Vital Signs Temp 98.6 F 09/19/21 11:37 Pulse 64 09/19/21 11:37 Resp 16 09/19/21 11:37 BP 159/74 H 09/19/21 11:37 Pulse Ox 98 09/19/21 11:37 BMI result Body Mass Index 30.5 Objective Data Labs CBC & Chem 7: 09/19/21 08:48 09/19/21 08:48 Labs: Laboratory Results - last 24 hr 09/18/21 09/18/21 09/18/21 15:34 15:34 15:34 WBC 9.3 RBC 3.62 L Hgb 10.7 L Hct 34.6 L MCV 95.6 MCH 29.6 MCHC 30.9 L RDW 15.8 Plt Count 256 MPV 9.5 Immature Gran % (Auto) 0.3 Neut % (Auto) 82.2 H Lymph % (Auto) 7.9 L Hernando % (Auto) 7.0 Eos % (Auto) 2.4 Baso % (Auto) 0.2 Lymph # (Auto) 0.7 L Hernando # (Auto) 0.7 Eos # (Auto) 0.2 Baso # (Auto) 0.0 Abs Immat Gran (auto) 0.03 Absolute Neuts (auto) 7.6 Absolute Nucleated RBC 0.000 Nucleated RBC % (auto) 0.0 PT 10.7 INR 0.9 Sodium 130 L Potassium 4.6 Chloride 95 L Carbon Dioxide 23 Anion Gap 17 BUN 16 D Creatinine 5.71 H* Estim Creat Clear Calc 10.8 Estimated GFR 7 POC Glucose Random Glucose 142 H Lactic Acid Calcium 8.3 L Magnesium 2.1 Total Bilirubin 0.4 AST 21 ALT 8 Alkaline Phosphatase 144 H Troponin I High Sens B-Natriuretic Peptide Total Protein 6.2 L Albumin 3.2 L COVID-19 (KRYSTINA) COVID-19 Clin Com Influenza Type A (JERALD) Influenza Type B (JERALD) Influenza A & B Note 09/18/21 09/18/21 09/18/21 15:34 15:34 15:35 WBC RBC Hgb Hct MCV MCH MCHC RDW Plt Count MPV Immature Gran % (Auto) Neut % (Auto) Lymph % (Auto) Hernando % (Auto) Eos % (Auto) Baso % (Auto) Lymph # (Auto) Hernando # (Auto) Eos # (Auto) Baso # (Auto) Abs Immat Gran (auto) Absolute Neuts (auto) Absolute Nucleated RBC Nucleated RBC % (auto) PT INR Sodium Potassium Chloride Carbon Dioxide Anion Gap BUN Creatinine Estim Creat Clear Calc Estimated GFR POC Glucose Random Glucose Lactic Acid 0.7 Calcium Magnesium Total Bilirubin AST ALT Alkaline Phosphatase Troponin I High Sens 44.9 H B-Natriuretic Peptide 2357 H Total Protein Albumin COVID-19 (KRYSTINA) COVID-19 Clin Com Influenza Type A (JERALD) Negative Influenza Type B (JERALD) Negative Influenza A & B Note See Note 09/18/21 09/18/21 09/18/21 15:35 18:32 19:38 WBC RBC Hgb Hct MCV MCH MCHC RDW Plt Count MPV Immature Gran % (Auto) Neut % (Auto) Lymph % (Auto) Hernando % (Auto) Eos % (Auto) Baso % (Auto) Lymph # (Auto) Hernando # (Auto) Eos # (Auto) Baso # (Auto) Abs Immat Gran (auto) Absolute Neuts (auto) Absolute Nucleated RBC Nucleated RBC % (auto) PT INR Sodium Potassium Chloride Carbon Dioxide Anion Gap BUN Creatinine Estim Creat Clear Calc Estimated GFR POC Glucose 109 Random Glucose Lactic Acid Calcium Magnesium Total Bilirubin AST ALT Alkaline Phosphatase Troponin I High Sens 44.9 H B-Natriuretic Peptide Total Protein Albumin COVID-19 (KRYSTINA) Negative COVID-[facility] Com See Note Influenza Type A (JERALD) Influenza Type B (JERALD) Influenza A & B Note 09/18/21 09/19/21 09/19/21 22:09 08:48 08:48 WBC 7.7 RBC 3.77 L Hgb 11.1 L Hct 36.3 L MCV 96.3 MCH 29.4 MCHC 30.6 L RDW 15.9 Plt Count 280 MPV 9.5 Immature Gran % (Auto) Neut % (Auto) Lymph % (Auto) Hernando % (Auto) Eos % (Auto) Baso % (Auto) Lymph # (Auto) Hernando # (Auto) Eos # (Auto) Baso # (Auto) Abs Immat Gran (auto) Absolute Neuts (auto) Absolute Nucleated RBC 0.000 Nucleated RBC % (auto) 0.0 PT INR Sodium 131 L Potassium 5.1 Chloride 94 L Carbon Dioxide 26 Anion Gap 16 BUN 22 H Creatinine 6.69 H* Estim Creat Clear Calc 9.2 Estimated GFR 6 POC Glucose 171 H Random Glucose 115 Lactic Acid Calcium 8.7 Magnesium Total Bilirubin AST ALT Alkaline Phosphatase Troponin I High Sens B-Natriuretic Peptide Total Protein Albumin COVID-19 (KRYSTINA) COVID-19 Clin Com Influenza Type A (JERALD) Influenza Type B (JERALD) Influenza A & B Note 09/19/21 11:23 WBC RBC Hgb Hct MCV MCH MCHC RDW Plt Count MPV Immature Gran % (Auto) Neut % (Auto) Lymph % (Auto) Hernando % (Auto) Eos % (Auto) Baso % (Auto) Lymph # (Auto) Hernando # (Auto) Eos # (Auto) Baso # (Auto) Abs Immat Gran (auto) Absolute Neuts (auto) Absolute Nucleated RBC Nucleated RBC % (auto) PT INR Sodium Potassium Chloride Carbon Dioxide Anion Gap BUN Creatinine Estim Creat Clear Calc Estimated GFR POC Glucose 114 Random Glucose Lactic Acid Calcium Magnesium Total Bilirubin AST ALT Alkaline Phosphatase Troponin I High Sens B-Natriuretic Peptide Total Protein Albumin COVID-19 (KRYSTINA) COVID-19 Clin Com Influenza Type A (JERALD) Influenza Type B (JERALD) Influenza A & B Note Procedures Date of Service Date of Service: 09/19/21 Assessment & Plan Assessment and plan (1) ESRD (end stage renal disease): Status: Acute (2) Heart failure with preserved ejection fraction: Status: Acute (3) Anemia: Status: Acute Plan usually has HD t-t-s h/o non adherence known heart failure with preserved function REC HD optimize volume status renal diet no need for CRUZITO phosphate binders Time Spent With Patient Time: Total time spent is greater than 50% in coordination of care (as documented) at patient's floor/unit and/or counseling patient: Progress Note: Quality Stroke Does the patient have a stroke diagnosis?: No
--- NOTE | 2021-09-19 16:17 | MHC.CM.PN ---
PT LIVES ALONE AND HAS [facility]ILY [facility] PT ALSO GOES TO HD 3 X PER WEEK PT USES A [facility]ALK[facility] PRN PTS PCP IS JARRET DAMON AT [facility] PT IS COVID VACCINATED X 3 HCP ON FILE IMM DELIVERED DCP HOME RESUME [facility]SP[facility]
[2021-09-19 20:53] LABS: Glucose, Whole Blood 72 mg/dL (60-115)
[2021-09-19] MEDS: OLANZapine 10 MG TABLET PO (22:03)
[2021-09-19] MEDS: bisacodyL 5 MG TABLET.DR 10 MG PO (22:03)
[2021-09-19] MEDS: amLODIPine Besylate 10 MG TABLET PO (22:04)
[2021-09-19] MEDS: Triamcinolone Acet 0.025 % Cream 15 GM TUBE 1 APPL TOPICAL (22:10)
[2021-09-20] VITALS: BP 159/81; PULSE 69; RESP 15; TEMP 36.7; O2SAT 97
[2021-09-20] MEDS: Omeprazole 20 MG CAPSULE.DR PO (06:01)
[2021-09-20] MEDS: Heparin Sodium,Porcine 5,000 UNIT/ML VIAL 5000 UNIT SUBCUT (06:01)
[2021-09-20 07:40] VITALS: BP 161/74; PULSE 69; RESP 18; TEMP 36.4; O2SAT 96
[2021-09-20] MEDS: Fluticasone Propionate 100 MCG BLST.W.DEV 1 PUFF INHALE (07:45)
[2021-09-20 07:46] VITALS: PULSE 74; RESP 16; O2SAT 98
[2021-09-20 07:46] LABS: Glucose, Whole Blood 101 mg/dL (60-115)
[2021-09-20] MEDS: Nicotine 21 MG PATCH.TD24 TRANSDERMA (09:30)
[2021-09-20] MEDS: Isosorbide Mononitrate 30 MG TAB.ER.24H PO (09:30)
[2021-09-20] MEDS: Multivitamin TABLET 1 TAB PO (09:31)
[2021-09-20] MEDS: cloNIDine HCL 0.2 MG TABLET PO (09:31)
[2021-09-20] MEDS: hydrALAZINE HCl 50 MG TABLET PO ×2 (09:31→15:21)
[2021-09-20] MEDS: dilTIAZem HCL CD 180 MG CAP.ER.24H 360 MG PO (09:31)
[2021-09-20] MEDS: Sevelamer Carbonate Tablet 800 MG TABLET PO ×2 (09:31→15:21)
[2021-09-20] MEDS: Buprenorphine/Naloxone 8/2 mg FILM 1 FILM SUBLINGUAL (09:31)
[2021-09-20] MEDS: Insulin Glargine,Hum.rec.anlog 100 UNIT/ML 10 ML VIAL 7 UNIT SUBCUT (09:32)
[2021-09-20] MEDS: Furosemide 40 MG/4 ML VIAL IVPUSH (09:33)
[2021-09-20] MEDS: Triamcinolone Acet 0.025 % Cream 15 GM TUBE 1 APPL TOPICAL (09:35)
[2021-09-20] MEDS: ondansetron HCL 4 MG/2 ML VIAL IVPUSH (10:00)
[2021-09-20] MEDS: 0.9 % Sodium Chloride Flush 3 ML SYRINGE IVFLUSH (10:03)
[2021-09-20 13:06] LABS: Glucose, Whole Blood 78 mg/dL (60-115)
--- NOTE | 2021-09-20 13:38 | P.DS_ITS ---
DS: Providers Provider Date of Service: 09/20/21 Date of admission: 09/18/21 18:24 Primary care physician: [facility] Consults: 09/18/21 18:13 Consult to Nephrology Routine Consulting Provider: [facility] Reason for consultation: ascites overload ?missed hD DS: Diagnosis Discharge Diagnosis (1) ESRD (end stage renal disease): Status: Acute (2) Heart failure with preserved ejection fraction: Status: Acute (3) Anemia: Status: Acute DS: Summary Hospital Course Hospital Course: Chief Complaint: dyspnea, abd/leg swelling This history was taken in Serbian from the patient. 66yo F with ESRD on HD TuThSa, anemia of ESRD, HFpEF, HTN, DM presenting with 4 days of worsening dyspnea, cough, non-exertional chest pressure, painful abdominal distension, leg swelling, and constipation.? She is unable to remember whether she went to HD yesterday but states at the same time that she does not miss HD, though the EHR suggests otherwise.? Currently denies chest pain.? Noted to have worsening ascites and anasarca with pulmonary vascular congestion on CXR.? Mildly hypoxic to 89% on RA.? She still makes a little urine and is on oral bumetanide; she was given IV furosemide in the ED plus a 10 mg continuous albuterol nebulization treatment.? Her dyspnea has improved. Hospital course 66yo F with ESRD on HD TuThSa, anemia of ESRD, HFpEF, HTN, DM presenting with 4 days of worsening dyspnea, cough, non-exertional chest pressure, painful abdominal distension, leg swelling, and constipation.? Historical noncompliance with HD, unclear if went for scheduled HD yesterday.? Admitted to medical service for volume overload. # hypervolemia associated with ESRD with acute/chronic HFpEF patient required hemodialysis, Imdur added for afterload reduction, patient is clinically stable with normal oxygenation recommend compliance with hemodialysis, Continue Bumex. # ESRD on HD recommend to continue hemodialysis, phosphate binders and Epogen # Anemia of ESRD recommend to continue Epogen as per Nephrology # Atypical chest pain ended with nonexertional chest pain, EKG showed normal sinus rhythm with poor R-wave progression unchanged from prior EKG troponin remained flat in indeterminate range no further intervention needed. # HTN blood pressure better controlled recommend to continue amlodipine, clonidine, diltiazem, hydralazine and Imdur added # DM2 blood sugars stable continue Lantus and insulin sliding scale, strongly recommend to follow diabetic diet # in regard to mood disorder and opioid use disorder patient recommended to continue Suboxone and olanzapine # active tobacco use disorder counseling done continue nicotine patch Time Spent with Patient Time attestation: Total time spent providing and/or coordinating discharge services: Discharge coordination time: Greater than 30 minutes Quality: Safe Use of Opioids Does Pt have an Active Cancer Diagnosis on the Problem List?: No Quality: Stroke Does the patient have a stroke diagnosis?: No Physical Exam Vital Signs: Vital Signs: Last Vital Signs Temp 97.5 F 09/20/21 07:40 Pulse 74 09/20/21 07:46 Resp 16 09/20/21 07:46 BP 161/74 H 09/20/21 07:40 Pulse Ox 96 09/20/21 07:40 BMI result Body Mass Index 30.5 Const: Other: Gen: Resting comfortably, no acute distress Neck: supple, R subclavian tunneled HD catheter Lungs: Clear to auscultation no crackles Heart: regular rate and rhythm, no murmurs Abd: distended with fluid wave Ext: Trace pitting edema bilateral legs Skin: warm/well-perfused Neuro: alert and oriented x3, no focal findings Psych: appropriate affect ? DS: Data Data Completed and Pending Completed studies during hospitalization [Text1]: Procedures Assistance with Respiratory Ventilation, Less than 24 Consecutive Hours, Continuous Positive Airway Pressure (07/27/21) Excision of Left Kidney, Percutaneous Approach, Diagnostic (02/25/21) Excision of Right Kidney, Percutaneous Approach, Diagnostic (10/22/20) Insertion of Infusion Device into Superior Vena Cava, Percutaneous Approach (02/25/21) Insertion of Tunneled Vascular Access Device into Chest Subcutaneous Tissue and Fascia, Percutaneous Approach (02/25/21) Performance of Urinary Filtration, Intermittent, Less than 6 Hours Per Day (08/08/21) Transfusion of Nonautologous Red Blood Cells into Peripheral Vein, Percutaneous Approach (02/25/21) Labs on day of discharge: Laboratory Results - last 24 hr 09/19/21 09/20/21 09/20/21 20:46 07:39 12:51 POC Glucose 72 101 78 Preliminary micro results at discharge 09/18/21 16:48 Blood Culture - Preliminary Blood - Venous No growth after 24 hours. 09/18/21 15:34 Blood Culture - Preliminary Blood - Venous No growth after 24 hours. Discharge Plan Discharge Patient Disposition: Home, Self-Care Discharge Diagnosis: Acute on chronic heart failure with preserved EF Hypervolemia associated with end-stage renal disease Atypical chest pain Constipation Referrals: [facility] [Primary Care Provider] - 09/29/21 10:45 am (You have a follow up appointment with Dr. Price on September 29 at 10:45 am, cated on the 3rd floor, [facility]. ) Discharge Medications: New isosorbide mononitrate 30 mg Tablet Extended Release 24 Hr 30 mg PO DAILY Qty: 30 0RF Protocol: Hold for SBP< HOLD for SBP < : 90 Continued buprenorphine-naloxone [Suboxone] 8-2 mg film 1 strip sublingual BID 0RF diltiazem HCl 180 mg capsule,extended release 24hr 360 mg PO DAILY 0RF Spiriva with HandiHaler 18 mcg capsule, w/inhalation device 1 cap inhalation DAILY 0RF acetaminophen 500 mg Tablet 500 mg PO Q8H PRN (Reason: Pain, Mild) 0RF triamcinolone acetonide 0.025 % cream 1 appl topical BID 0RF sevelamer carbonate 800 mg tablet 800 mg PO TID 0RF clonidine HCl 0.2 mg tablet 0.2 mg PO BID 0RF hydralazine 50 mg tablet 1 tab PO TID 0RF insulin aspart U-100 [Novolog PenFill U-100 Insulin] 100 unit/mL Cartridge 1 sliding scale dose SUBCUT USEASDIRECTD 0RF Protocol: Insulin Correction Scale Less than or equal to 110 ---- Give (units): 0 111 to 150 Give (units): 0 151 to 200 Give (units): 4 201 to 250 Give (units): 6 251 to 300 Give (units): 8 301 to 350 Give (units): 10 Greater than 350 Give (units): 12 Call MD if Blood Glucose > : 350 trazodone 100 mg tablet 1 - 2 tab PO BEDTIME PRN (Reason: constipation) 0RF docusate sodium [Colace] 100 mg capsule 100 mg PO DAILY 30 Days Qty: 30 0RF polyethylene glycol 3350 [Miralax] 17 gram/dose powder 17 g PO DAILY 30 Days Qty: 510 0RF bisacodyl [Dulcolax (bisacodyl)] 5 mg tablet,delayed release (DR/EC) 10 mg PO BEDTIME 2 Days Qty: 20 0RF olanzapine 10 mg tablet 10 mg PO BEDTIME 0RF amlodipine 10 mg Tablet 10 mg PO BEDTIME Qty: 30 0RF Protocol: Hold for SBP< HOLD for SBP < : 90 Rx Instructions: replaces prior dose of 5 mg daily bumetanide 2 mg Tablet 2 mg PO DAILY 0RF pantoprazole 40 mg Tablet,Delayed Release (Dr/Ec) 40 mg PO DAILY 0RF melatonin 5 mg Tablet 5 mg PO BEDTIME PRN (Reason: Sleep) 0RF EDUCATION SUPERVISOR-Sharifa Rx 1-60-300 mg-mg-mcg Tablet 1 tab PO DAILY 0RF Flovent HFA 110 mcg/actuation Hfa Aerosol Inhaler 1 puff INHALATION BID 0RF sennosides [senna] 8.6 mg tablet 1 - 2 tab PO BEDTIME PRN (Reason: constipation) 0RF Retacrit 10,000 unit/mL Solution 10,000 unit SUBCUT WE@1000 0RF nicotine 21 mg/24 hr patch 24 hour 1 patch topical DAILY 0RF Lantus U-100 Insulin 100 unit/mL solution 7 unit subcut DAILY 0RF Discharge Orders: Discharge Order (Routine); Ordered 09/20/21 Ordered By: Aracelis Zuleta Diet: advance to usual diet and diabetic diet Activity on Discharge: As tolerated Stand Alone Forms: Patient Portal Discharge page Care Plan Goals: Volume overload/acute on chronic heart failure with preserved EF continue all home medications, Isordil added for better blood pressure control Health Concerns: Continue all home medications as before Plan of Treatment: Outpatient follow-up with Nephrology for continued hemodialysis Tuesdays and Saturdays Assessment: As per discharge summary Discharge Date/Time: 09/20/21 17:00
--- NOTE | 2021-09-20 13:52 | MHC.CM.PN ---
PATIENT IS DC HOME - SELF CARE RN AWARE OF PLAN. IMM / COMPLETED PRIOR
--- NOTE | 2021-09-20 15:18 | PM.PNNEP ---
Subjective Subjective Date of Service: 09/20/21 Interval history: seen and examined had HD earlier feels better Physical Exam Vital Signs: Vital Signs: Last Vital Signs Temp 97.5 F 09/20/21 07:40 Pulse 74 09/20/21 07:46 Resp 16 09/20/21 07:46 BP 161/74 H 09/20/21 07:40 Pulse Ox 96 09/20/21 07:40 BMI result Body Mass Index 30.5 Const: General: no acute distress HEENT: Head: Yes normocephalic and Yes atraumatic Neck: Neck: Yes supple Resp: Auscultation: diminished lung sounds Cardio: Heart sounds: S1 normal heart sound present and S2 normal heart sound present Extrem: General: Yes no pedal edema Objective Data Labs CBC & Chem 7: 09/19/21 08:48 09/19/21 08:48 Labs: Laboratory Results - last 24 hr 09/19/21 09/20/21 09/20/21 20:46 07:39 12:51 POC Glucose 72 101 78 Microbiology Microbiology Results: Microbiology 09/18/21 16:48 Blood - Venous Blood Culture - Preliminary No growth after 24 hours. 09/18/21 15:34 Blood - Venous Blood Culture - Preliminary No growth after 24 hours. Procedures Date of Service Date of Service: 09/20/21 Assessment & Plan Assessment and plan (1) ESRD (end stage renal disease): Status: Acute (2) Heart failure with preserved ejection fraction: Status: Acute (3) Anemia: Status: Acute Plan s/p HD yesterday usually has HD t-t-s h/o non adherence known heart failure with preserved function REC HD today optimize volume status renal diet no need for CRUZITO phosphate binders Time Spent With Patient Time: Total time spent is greater than 50% in coordination of care (as documented) at patient's floor/unit and/or counseling patient: Progress Note: Quality Stroke Does the patient have a stroke diagnosis?: No
--- NOTE | 2021-09-21 11:44 | CONS_ITS ---
DATE OF SERVICE: 09/20/2021 HISTORY OF PRESENT ILLNESS: This is a 66-year-old patient with history of end-stage kidney disease, who presented to the hospital with shortness of breath and lower extremity edema. The patient has a history of nonadherence to her dialysis regimen, could not remember when she had her last dialysis. On arrival, she was noted to be short of breath and chest x-ray was consistent with pulmonary vascular congestion. Initially, her oxygenation on room air was 89%. There is no report of fever or chills. No nausea, vomiting, diarrhea, or abdominal pain. PAST MEDICAL HISTORY: Remarkable for end-stage renal disease, diabetes mellitus, hypertension, congestive heart failure, anemia. MEDICATIONS: Inpatient and outpatient reviewed. She is not on any medications. SOCIAL HISTORY: Does not smoke. FAMILY HISTORY: Negative for kidney disease. REVIEW OF SYSTEMS: 10-point review of system negative except for pertinent in History of Present Illness. PHYSICAL EXAMINATION: VITAL SIGNS: The blood pressure is 150/63, heart rate 69, respiratory rate 17, temperature 98. CONSTITUTIONAL: Looks stated age, in no acute distress. NEUROLOGIC: Alert, awake. HEENT: Head is atraumatic, normocephalic. NECK: Supple. LUNGS: Decreased breath sounds. HEART: S1, S2. No rub. ABDOMEN: Soft, nontender. EXTREMITIES: No peripheral edema. IMPRESSION: 1. End-stage renal disease. 2. Heart failure with preserved ejection fraction. 3. Anemia. This is a patient with end-stage kidney disease with a history of nonadherence to medical regimen, presented with congestive heart failure. We will dialyze her today and optimize volume status. We will have her on a renal diet. She does not need the Epogen for the time being. We will have her on phosphate binders and resume her dialysis as per schedule tomorrow as well. Thank you for allowing me to participate in the care of this patient. MD YULIET Gonzalez/GRACIE / [phone]
== END 2021-09-20 17:00 | disposition home or self-care (01) | DRG 291 ==
LOC: HO.ED 17:08 → HO.EDOVER 18:35 → HO.S3 09-19 06:49
PROVIDERS: Physician Assistant Medical; Admitting Provider Family Medicine; Emergency Provider Emergency Medicine; PCP Internal Medicine; Visit Provider Hospitalist
DX: I13.2 Hypertensive heart and chronic kidney disease with heart failure and with stage 5 chronic kidney disease, or end stage renal disease (principal); N18.6 End stage renal disease; I50.33 Acute on chronic diastolic (congestive) heart failure; F11.20 Opioid dependence, uncomplicated; R18.8 Other ascites; F17.210 Nicotine dependence, cigarettes, uncomplicated; E11.22 Type 2 diabetes mellitus with diabetic chronic kidney disease; D63.1 Anemia in chronic kidney disease; K59.00 Constipation, unspecified; Z91.15 Patient's noncompliance with renal dialysis; Z99.2 Dependence on renal dialysis; Z20.822 Contact with and (suspected) exposure to COVID-19; Z71.6 Tobacco abuse counseling; Z79.4 Long term (current) use of insulin; Z79.899 Other long term (current) drug therapy
CPT/HCPCS: 36415; 71046; 74176; 80048; 80053; 82947; 83605; 83735; 83880; 84484; 85025; 85027; 85610; 87040; 87502; 87635; 90999; 93005; 93970; 94640; 96365; 96375; 99285; 99291; J0696; J1940; J2405

== ENCOUNTER 2021-10-10 19:29 | Inpatient (IN) | payer OTHER, SELFPAY ==
--- NOTE | ~2021-10-10 | XR_ITS ---
EXAMINATION: XR CHEST CLINICAL INFORMATION: Shortness of breath COMPARISON: Chest x-ray 09/18/2021, 3:[address] chest 09/18/2021. TECHNIQUE: Frontal portable view of the chest was obtained. 8:51 PM FINDINGS: Central port catheter tip at caval atrial junction unchanged position since prior study. Lung volume low. This accentuates the central pulmonary vessels which are mildly prominent similar prior chest x-ray 09/18/2021. No dense consolidation. Hazy density at the right costophrenic angle consistent with small right pleural effusion. This is similar to CT chest 09/18/2021. There is no pneumothorax. XR/XR chest 1V IMPRESSION: Low inspiratory effort with prominent pulmonary vessels.. This is unchanged since 09/18/2021. There is a small right pleural effusion
[2021-10-10 19:52] VITALS: BP 182/92; PULSE 73; RESP 21; TEMP 36.4; O2SAT 94; BMI 29.7
--- NOTE | 2021-10-10 19:56 | ED_ITS ---
HPI - SOB/Dyspnea General Chief Complaint: Dyspnea Stated Complaint: SOB Time Seen by Provider: 10/10/21 19:56 Source: patient History of Present Illness HPI Narrative: Patient 66 years old with history of end-stage renal disease on hemodialysis, hypertension, CHF, diabetes, chronic anemia, asthma complaining of shortness of breath saturating 84% on room air received DuoNeb treatment prior to arrival saturating 93% on 4 L patient had dialysis 2 days ago since then been having shortness of breath Related Data Home Medications Medication Instructions Recorded Confirmed buprenorphine 8 mg-naloxone 2 mg 1 strip SUBLINGUAL BID 10/22/20 09/18/21 sublingual film (Suboxone) diltiazem HCl 180 mg 360 mg PO DAILY 10/22/20 09/18/21 capsule,extended release 24 hr tiotropium bromide 18 mcg capsule 1 cap INHALATION DAILY 10/22/20 09/18/21 with inhalation device (Spiriva with HandiHaler) olanzapine 10 mg tablet 10 mg PO BEDTIME 02/25/21 09/18/21 bumetanide 2 mg tablet 2 mg PO DAILY 04/15/21 09/18/21 fluticasone propionate 110 1 puff INHALATION BID 04/15/21 09/18/21 mcg/actuation HFA aerosol inhaler (Flovent HFA) melatonin 5 mg tablet 5 mg PO BEDTIME PRN 04/15/21 09/18/21 pantoprazole 40 mg tablet,delayed 40 mg PO DAILY 04/15/21 09/18/21 release vitamin B comp no.3-folic acid 1 1 tab PO DAILY 04/15/21 09/18/21 mg-vit C 60 mg-biotin 300 mcg tablet (ENGINEERING MATHEMATICIAN-[facility]) epoetin kateryna-epbx 10,000 unit/mL 10,000 unit SUBCUT WE@1000 05/11/21 09/18/21 injection solution (Retacrit) sennosides 8.6 mg tablet (senna) 1 - 2 tab PO BEDTIME PRN 05/11/21 09/18/21 acetaminophen 500 mg tablet 500 mg PO Q8H PRN 06/10/21 09/18/21 sevelamer carbonate 800 mg tablet 800 mg PO TID 06/10/21 09/18/21 triamcinolone acetonide 0.025 % 1 appl TOPICAL BID 06/10/21 09/18/21 topical cream nicotine 21 mg/24 hr daily 1 patch TOPICAL DAILY 06/18/21 09/18/21 transdermal patch clonidine HCl 0.2 mg tablet 0.2 mg PO BID 07/27/21 09/18/21 hydralazine 50 mg tablet 1 tab PO TID 07/27/21 09/18/21 insulin aspart U-100 100 unit/mL 1 sliding scale dose SUBCUT 07/27/21 09/18/21 subcutaneous cartridge (Novolog USEASDIRECTD PenFill U-100 Insulin aspart) trazodone 100 mg tablet 1 - 2 tab PO BEDTIME PRN 08/08/21 09/18/21 insulin glargine 100 unit/mL 7 unit SUBCUT DAILY 09/18/21 09/18/21 subcutaneous solution (Lantus U-100 Insulin) Previous Rx's Medication Instructions Recorded amlodipine 10 mg tablet 10 mg PO BEDTIME #30 tab 03/07/21 docusate sodium 100 mg capsule 100 mg PO DAILY 30 Days #30 cap 08/12/21 (Colace) polyethylene glycol 3350 17 17 g PO DAILY 30 Days #510 g 08/12/21 gram/dose oral powder (Miralax) bisacodyl 5 mg tablet,delayed 10 mg PO BEDTIME 2 Days #20 tab 08/30/21 release (Dulcolax (bisacodyl)) isosorbide mononitrate 30 mg 30 mg PO DAILY #30 tab 09/20/21 tablet,extended release 24 hr Allergies Allergy/AdvReac Type Severity Reaction Status Date / Time No Known Allergies Allergy Mild NOT Verified 10/10/21 20:00 APPLICABLE Review of Systems Review of Systems: Yes all other systems are reviewed and are negative [facility] Past Medical History Medical History Abdominal pain Acute kidney injury superimposed on chronic kidney disease VANDANA (acute kidney injury) Anasarca Anemia Anemia in chronic kidney disease Ascites Bilateral edema of lower extremity CHF (congestive heart failure) CHF (congestive heart failure) CKD (chronic kidney disease) Constipation Constipation Diabetes mellitus Diastolic congestive heart failure End stage renal disease on dialysis End-stage renal disease (ESRD) ESRD (end stage renal disease) ESRD (end stage renal disease) on dialysis Essential hypertension Heart failure with preserved ejection fraction HTN (hypertension) HTN (hypertension) Hypertension Non-compliance Normocytic anemia Surgical History No pertinent past surgical history Family History Family History Other Hypertension Social History Social History Household Members: None Housing: Apartment Do you presently have visiting nurse or other home services: Yes Alcohol intake: never Patient Tobacco Use Status: Current everyday Tobacco user Tobacco use type: Cigarette Cigarette Packs Per Day: 1 Cigarettes Per Day: 5 Years Smoked: 18 Smoked in Last 30 Days: No e-Cigarette/Vaping Use: Never Used Second Hand Smoke Exposure: No Use of substances other than those prescribed or required for medical reasons: No Substance Use Type: Heroin Advance Directives: Yes Advance Directives on File: Yes Advance Directives Date on File: 04/20/21 service: No Current occupational status: disabled Physical Exam Vital Signs: Vital Signs: Last Vital Signs Temp 98.7 F 10/11/21 00:07 Pulse 70 10/11/21 00:07 Resp 16 10/11/21 00:07 BP 182/83 H 10/10/21 23:23 Pulse Ox 94 10/11/21 00:07 BMI result Body Mass Index 24.0 Appearance: Alert. Oriented X3. No acute distress. Eyes: PERRLA, No Nystagmus pallor+ ENT: Pharynx normal. Oral Mucosa moist Neck: Normal inspection. Neck supple. CVS: Normal heart rate and rhythm. Pulses normal. Respiratory: Mild respiratory distress with expiratory wheezing and few aircraft maintenance supervisor ckles at bases Equal air entry bilateral, Abdomen: Soft and nontender. Bowel sounds are present, no mass palpable, no CVA tenderness Skin: Skin warm and dry. Normal skin color. Normal skin turgor. Extremities: 1+ lower extremity edema. No calf tenderness Neuro: Oriented X 3. No motor deficit. No sensory deficit.No cerebellar signs , cranial nerves II-XII intact MDM - SOB/Dyspnea MDM Narrative Medical decision making narrative: Patient has asthma renal failure diastolic congestive heart failure come for increased shortness of breath due for dialysis tomorrow was saturating 84% on room air per EMS improved to 91% on 2 L admit patient for CHF and asthma and end-stage renal disease Differential Diagnosis Differential diagnosis: Likely congestive heart failure and asthma with exacerbation Medical Records Attestation: I reviewed the patient's medical records. Lab Data Attestation: I reviewed the patient's lab results. Result diagrams: 10/10/21 20:50 10/11/21 00:35 Labs: Lab Results 10/10/21 10/10/21 10/10/21 Range/Units 20:50 20:50 20:50 WBC 9.4 (4.8-10.8) X10*3/uL RBC 3.94 L (4.20-5.50) X10*6/uL Hgb 11.3 L (12.0-16.0) g/dl Hct 35.4 L (37.0-47.0) % MCV 89.8 (80.0-98.0) fL MCH 28.7 (27.0-33.0) pg MCHC 31.9 (31.0-35.0) g/dl RDW 14.2 (11.0-16.0) % Plt Count 248 (160-400) X10*3/uL MPV 8.8 L (9.4-12.3) fL Immature Gran % (Auto) 0.3 (0.0-0.4) % Neut % (Auto) 83.1 H (45-73) % Lymph % (Auto) 8.3 L (20-40) % [place] % (Auto) 5.7 (2-11) % Eos % (Auto) 2.3 (0-4) % Baso % (Auto) 0.3 (0-2) % Lymph # (Auto) 0.8 L (1.2-4.9) X10*3/uL [place] # (Auto) 0.5 (0.1-1.2) X10*3/uL Eos # (Auto) 0.2 (0.0-0.4) X10*3/uL Baso # (Auto) 0.0 (0.0-0.2) X10*3/uL Abs Immat Gran (auto) 0.03 (0.00-0.03) X10*3/uL Absolute Neuts (auto) 7.8 (2.0-8.3) x10*3/uL Absolute Nucleated RBC 0.000 (0.0-0.012) X10*3/uL Nucleated RBC % (auto) 0.0 (0.0-0.2) /100WBC Lactic Acid 0.5 (0.5-2.0) mmol/L Troponin I High Sens (<3.5-17.0) ng/L COVID-19 (KRYSTINA) Negative (Negative) COVID-19 Clin Com See Note 10/10/21 Range/Units 20:50 WBC (4.8-10.8) X10*3/uL RBC (4.20-5.50) X10*6/uL Hgb (12.0-16.0) g/dl Hct (37.0-47.0) % MCV (80.0-98.0) fL MCH (27.0-33.0) pg MCHC (31.0-35.0) g/dl RDW (11.0-16.0) % Plt Count (160-400) X10*3/uL MPV (9.4-12.3) fL Immature Gran % (Auto) (0.0-0.4) % Neut % (Auto) (45-73) % Lymph % (Auto) (20-40) % [place] % (Auto) (2-11) % Eos % (Auto) (0-4) % Baso % (Auto) (0-2) % Lymph # (Auto) (1.2-4.9) X10*3/uL [place] # (Auto) (0.1-1.2) X10*3/uL Eos # (Auto) (0.0-0.4) X10*3/uL Baso # (Auto) (0.0-0.2) X10*3/uL Abs Immat Gran (auto) (0.00-0.03) X10*3/uL Absolute Neuts (auto) (2.0-8.3) x10*3/uL Absolute Nucleated RBC (0.0-0.012) X10*3/uL Nucleated RBC % (auto) (0.0-0.2) /100WBC Lactic Acid (0.5-2.0) mmol/L Troponin I High Sens 53.5 H* (<3.5-17.0) ng/L COVID-19 (KRYSTINA) (Negative) COVID-19 Clin Com Discharge Plan Discharge Clinical Impression: Asthma with exacerbation, Congestive heart failure, End stage chronic kidney disease Patient Disposition: Admitted As Inpatient
[2021-10-10 19:57] VITALS: BMI 24.0
[2021-10-10 19:59] VITALS: RESP 20
--- NOTE | 2021-10-10 20:09 | ECG_ITS ---
Test Reason : SOB Blood Pressure : / mmHG Vent. Rate : 076 BPM Atrial Rate : 076 BPM P-R Int : 170 ms QRS Dur : 088 ms QT Int : 426 ms P-R-T Axes : 056 -08 049 degrees QTc Int : 479 ms Normal sinus rhythm Possible Left atrial enlargement Left ventricular hypertrophy ( R in aVL , Jona product ) Abnormal ECG When compared with ECG of 18-SEP-2021 15:38, No significant change was found Referred By: Damien Latif Electronically Signed By:Charan Hankins
[2021-10-10] MEDS: Albuterol/Iprat 2.5/0.5MG 3 ML AMPUL.NEB INHALE (20:19)
[2021-10-10] MEDS: Albuterol Sulfate (0.083%) 2.5 MG/3 ML VIAL.NEB 5 MG INHALE (20:19)
[2021-10-10 20:22] VITALS: PULSE 74; RESP 20; O2SAT 94
[2021-10-10] MEDS: methylPREDNISolone Sod Succ 125 MG/2 ML VIAL IVPUSH (20:49)
[2021-10-10 20:57] LABS: MANUAL DIFF FLAG NO
[2021-10-10 20:58] LABS: Basophils Percent Auto 0.3 % (0-2); Eosinophils Absolute Auto 0.2 X10*3/uL (0.0-0.4); Eosinophils Percent Auto 2.3 % (0-4); Hematocrit 35.4 % (37.0-47.0); Hemoglobin 11.3 g/dl (12.0-16.0); Imm Gran Abs Auto 0.03 X10*3/uL (0.00-0.03); Imm Gran Pct Auto 0.3 % (0.0-0.4); Lymphocytes Absolute Auto 0.8 X10*3/uL (1.2-4.9); Lymphocytes Percent Auto 8.3 % (20-40); Mean Corpuscular HGB Conc 31.9 g/dl (31.0-35.0); Mean Corpuscular Hemoglobin 28.7 pg (27.0-33.0); Mean Corpuscular Volume 89.8 fL (80.0-98.0); Mean Platelet Volume 8.8 fL (9.4-12.3); Monocytes Absolute Auto 0.5 X10*3/uL (0.1-1.2); Monocytes Percent Auto 5.7 % (2-11); Neutrophils Absolute Auto 7.8 x10*3/uL (2.0-8.3); Neutrophils Percent Auto 83.1 % (45-73); Platelet Count 248 X10*3/uL (160-400); Red Blood Count 3.94 X10*6/uL (4.20-5.50); Red Cell Distribution Width 14.2 % (11.0-16.0); White Blood Count 9.4 X10*3/uL (4.8-10.8)
[2021-10-10 21:08] LABS: Lactic Acid 0.5 mmol/L (0.5-2.0)
[2021-10-10 21:12] LABS: COVID-19 Test Negative (Negative)
[2021-10-10 21:27] LABS: Troponin-I High Sensitivity 53.5 ng/L (<3.5-17.0)
[2021-10-10] MEDS: Furosemide 100 MG/10 ML VIAL 80 MG IVPUSH (21:53)
[2021-10-10 23:23] VITALS: BP 182/83; PULSE 81; RESP 15; O2SAT 98
--- NOTE | 2021-10-10 23:36 | PM.IMHP ---
History of Present Illness Date of Service: 10/10/21 Chief Complaint: sob 66-year-old female with a past medical history of hypertension, hyperlipidemia, CAD, CHF, CKD/ ESRD on hemodialysis, asthma, anemia, history of anasarca, ascites; presented to the hospital today with a chief complaint of shortness of breath. Patient is a poor historian. Patient reports that over the past couple days she has been having nausea home vomiting and has been having decreased oral intake. Patient also reports she has been having shortness of breath which has been gradually any worsening over the past few days. Denies any chest pain or palpitations. Mentions she has been complaint with her hemodialysis sessions. Also mentions she has been tolerated with home medications. Denies any abdominal discomfort. Denies any urinary symptoms. Review of all other systems is negative except mentioned above ER course: Per ER team patient on presentation noted to be saturating 88%; normal exam noted to have fine crackles as well as bilateral wheezing; concern for asthma exacerbation; given nebulizations and steroids. Patient oxygenation improved to 93% on room air. Admitted to the hospital for further management. [facility] Medical History Abdominal pain Acute kidney injury superimposed on chronic kidney disease VANDANA (acute kidney injury) Anasarca Anemia Anemia in chronic kidney disease Ascites Bilateral edema of lower extremity CHF (congestive heart failure) CHF (congestive heart failure) CKD (chronic kidney disease) Constipation Constipation Diabetes mellitus Diastolic congestive heart failure End stage renal disease on dialysis End-stage renal disease (ESRD) ESRD (end stage renal disease) ESRD (end stage renal disease) on dialysis Essential hypertension Heart failure with preserved ejection fraction HTN (hypertension) HTN (hypertension) Hypertension Non-compliance Normocytic anemia Family History Other Hypertension Surgical History No pertinent past surgical history Social History Household Members: None Housing: Apartment Do you presently have visiting nurse or other home services: Yes Alcohol intake: never Patient Tobacco Use Status: Current everyday Tobacco user Tobacco use type: Cigarette Cigarette Packs Per Day: 1 Cigarettes Per Day: 5 Years Smoked: 18 Smoked in Last 30 Days: No e-Cigarette/Vaping Use: Never Used Second Hand Smoke Exposure: No Use of substances other than those prescribed or required for medical reasons: No Substance Use Type: Heroin Advance Directives: Yes Advance Directives on File: Yes Advance Directives Date on File: 04/20/21 service: No Current occupational status: disabled Meds Allergies Allergy/AdvReac Type Severity Reaction Status Date / Time No Known Allergies Allergy Mild NOT Verified 10/10/21 20:00 APPLICABLE Home Medications Medication Instructions Recorded Confirmed Last Taken Type buprenorphine 8 mg-naloxone 2 mg 1 strip SUBLINGUAL BID 10/22/20 09/18/21 Unknown History sublingual film (Suboxone) diltiazem HCl 180 mg 360 mg PO DAILY 10/22/20 09/18/21 Unknown History capsule,extended release 24 hr tiotropium bromide 18 mcg capsule 1 cap INHALATION DAILY 10/22/20 09/18/21 Unknown History with inhalation device (Spiriva with HandiHaler) olanzapine 10 mg tablet 10 mg PO BEDTIME 02/25/21 09/18/21 Unknown History bumetanide 2 mg tablet 2 mg PO DAILY 04/15/21 09/18/21 Unknown History fluticasone propionate 110 1 puff INHALATION BID 04/15/21 09/18/21 Unknown History mcg/actuation HFA aerosol inhaler (Flovent HFA) melatonin 5 mg tablet 5 mg PO BEDTIME PRN 04/15/21 09/18/21 Unknown History pantoprazole 40 mg tablet,delayed 40 mg PO DAILY 04/15/21 09/18/21 Unknown History release vitamin B comp no.3-folic acid 1 1 tab PO DAILY 04/15/21 09/18/21 Unknown History mg-vit C 60 mg-biotin 300 mcg tablet (WATCH AND CLOCK REPAIR CLERK[facility]) epoetin kateryna-epbx 10,000 unit/mL 10,000 unit SUBCUT WE@1000 05/11/21 09/18/21 Unknown History injection solution (Retacrit) sennosides 8.6 mg tablet (senna) 1 - 2 tab PO BEDTIME PRN 05/11/21 09/18/21 Unknown History acetaminophen 500 mg tablet 500 mg PO Q8H PRN 06/10/21 09/18/21 Unknown History sevelamer carbonate 800 mg tablet 800 mg PO TID 06/10/21 09/18/21 Unknown History triamcinolone acetonide 0.025 % 1 appl TOPICAL BID 06/10/21 09/18/21 Unknown History topical cream nicotine 21 mg/24 hr daily 1 patch TOPICAL DAILY 06/18/21 09/18/21 Unknown History transdermal patch clonidine HCl 0.2 mg tablet 0.2 mg PO BID 07/27/21 09/18/21 Unknown History hydralazine 50 mg tablet 1 tab PO TID 07/27/21 09/18/21 Unknown History insulin aspart U-100 100 unit/mL 1 sliding scale dose SUBCUT 07/27/21 09/18/21 Unknown History subcutaneous cartridge (Novolog USEASDIRECTD PenFill U-100 Insulin aspart) trazodone 100 mg tablet 1 - 2 tab PO BEDTIME PRN 08/08/21 09/18/21 Unknown History insulin glargine 100 unit/mL 7 unit SUBCUT DAILY 09/18/21 09/18/21 Unknown History subcutaneous solution (Lantus U-100 Insulin) Physical Exam Vital Signs and Narrative: Vital Signs: Last Vital Signs Temp 97.6 F 10/10/21 19:52 Pulse 81 10/10/21 23:23 Resp 15 10/10/21 23:23 BP 182/83 H 10/10/21 23:23 Pulse Ox 98 10/10/21 23:23 BMI result Body Mass Index 24.0 Gen: Appears be in no acute distress ; saturating 93% on room air. Speaks in full sentences. HEENT: NCAT, Moist mucosa. Pulmonary: Slightly diminished breath sounds; occasional crackles present CVS: Normal S1-S2 Abdomen: BS+, Soft, Nontender Extremities: Warm well perfused Neuro: Alert and awake. Results Labs CBC and Chem 7: 10/10/21 20:50 10/11/21 00:35 Labs: Laboratory Results - last 24 hr 10/10/21 10/10/21 10/10/21 20:50 20:50 20:50 MCV 89.8 MCH 28.7 MCHC 31.9 RDW 14.2 Plt Count 248 MPV 8.8 L Immature Gran % (Auto) 0.3 Neut % (Auto) 83.1 H Lymph % (Auto) 8.3 L [place] % (Auto) 5.7 Eos % (Auto) 2.3 Baso % (Auto) 0.3 Lymph # (Auto) 0.8 L [place] # (Auto) 0.5 Eos # (Auto) 0.2 Baso # (Auto) 0.0 Abs Immat Gran (auto) 0.03 Absolute Neuts (auto) 7.8 Absolute Nucleated RBC 0.000 Nucleated RBC % (auto) 0.0 Lactic Acid 0.5 Troponin I High Sens COVID-19 ([facility]) Negative COVID-19 Clin Com See Note 10/10/21 20:50 MCV MCH MCHC RDW Plt Count MPV Immature Gran % (Auto) Neut % (Auto) Lymph % (Auto) [place] % (Auto) Eos % (Auto) Baso % (Auto) Lymph # (Auto) [place] # (Auto) Eos # (Auto) Baso # (Auto) Abs Immat Gran (auto) Absolute Neuts (auto) Absolute Nucleated RBC Nucleated RBC % (auto) Lactic Acid Troponin I High Sens 53.5 H* COVID-19 (KRYSTINA) COVID-19 Clin Com Imaging Radiologist's Impressions: Impressions Chest X-Ray 10/10/21 20:57 IMPRESSION: Low inspiratory effort with prominent pulmonary vessels.. This is unchanged since 09/18/2021. There is a small right pleural effusion Assessment and Plan (1) Reactive airway disease: Status: Acute (2) ESRD (end stage renal disease): Status: Acute Plan 66-year-old female with a past medical history of hypertension, hyperlipidemia, CAD, CHF, CKD/ ESRD on hemodialysis, asthma, anemia, history of anasarca, ascites; presented to the hospital today with a chief complaint of shortness of breath. noted to have following: Mild acute asthma exacerbation: Will give the patient Solu-Medrol IV q.i.d. Nebulizations standing and p.r.n. Supplemental oxygen p.r.n. Mild hypoxia: Improved after nebulization treatments. Patient's chest x-ray also showed mild congestion. Patient due for hemodialysis. diastolic CHF: Patient chest x-ray showed mild congestion. Patient due for hemodialysis. will also continue home Bumex. will give IV Bumex x1 initial troponin 53-repeat troponin pending patient denies any chest pain. Likely demand. EKG nonischemic History of ESRD: Nephrology consult. History of opiate dependence: Addiction Medicine consult. History of hypertension / hyperlipidemia: Continue home medications DVT prophylaxis: Subcu heparin Code status: Full code Quality Stroke Does the patient have a stroke diagnosis?: No VTE Prior VTE?: No VTE Risk Level:: Medical - moderate - high VTE Device Contraindication: Treatment Not Indicated VTE Drug Contraindication: N/A - Med Ordered
[2021-10-11] VITALS (10 sets, daily range): BP systolic 156–208; BP diastolic 68–112; PULSE 70–116; RESP 16–23; TEMP 36.6–37.1; O2SAT 91–97
--- NOTE | 2021-10-11 00:42 | PC.NURSE ---
this RN and secondary RN attempt blood draw with no success, pt refusing blood work at this time. MD aware, verbal order to d/c cultures.
[2021-10-11 00:45] LABS: Glucose, Whole Blood 162 mg/dL (60-115)
[2021-10-11] MEDS: methylPREDNISolone Sod Succ 40 MG/ML VIAL IVPUSH ×4 (00:48→23:28)
[2021-10-11] MEDS: Heparin Sodium,Porcine 5,000 UNIT/ML VIAL 5000 UNIT SUBCUT ×4 (00:50→23:36)
[2021-10-11 01:20] LABS: Alanine Aminotransferase 10 U/L (0-31); Albumin Level 3.6 g/dL (3.5-5.0); Alkaline Phosphatase 157 U/L (39-117); Anion Gap 18 (12-20); Aspartate Amino Transferase 22 U/L (5-31); Bilirubin Total 0.3 mg/dL (0.0-1.0); Blood Urea Nitrogen 22 mg/dL (9-16); Calcium 8.9 mg/dL (8.4-10.2); Carbon Dioxide 23 mmol/L (22-29); Chloride 93 mmol/L (96-108); Creatinine Clr Calc Pharmacy 6.7; Estimated Glomerular Filt Rate 6; Glucose Random 175 mg/dL (60-115); Potassium 4.4 mmol/L (3.3-5.1); Sodium 130 mmol/L (135-145); Total Protein 7.2 g/dL (6.5-8.0)
--- NOTE | 2021-10-11 02:20 | PC.NURSE ---
this RN attempt med rec on pt she states she does not know the names of them, pt states she does get dialysis , , sunday.
[2021-10-11] MEDS: Bumetanide 1 MG/4 ML VIAL IVPUSH (02:32)
--- NOTE | 2021-10-11 05:53 | PC.NURSE ---
pt states she recieves suboxone from [facility], this RN attempted to call over there but they do not open until 829, pt aware.
--- NOTE | 2021-10-11 06:04 | PC.NURSE ---
pt attempt to place here own nicotine patch, pt educated she cannot use her own home meds in hospital, this RN asked MD to place order for nicotine patch
[2021-10-11 07:11] LABS: Glucose, Whole Blood 220 mg/dL (60-115)
[2021-10-11] MEDS: Albuterol/Iprat 2.5/0.5MG 3 ML AMPUL.NEB INHALE ×4 (07:59→23:57)
[2021-10-11] MEDS: Insulin Lispro 100 UNIT/ML 3 ML VIAL SUBCUT ×2 (08:00→17:48)
--- NOTE | 2021-10-11 08:05 | PC.NURSE ---
02 sat 91% on r./a, pt refused to wear nasal casnula., kungs - exp wheezing/tight throughout, resp therapy at beside during this writing for puja bunch
--- NOTE | 2021-10-11 08:56 | PHA.MEDREC ---
Pharmacy Consult ? Medication Reconciliation Pharmacy has completed the medication reconciliation. Pt very poor historian, unsure of what medications she takes. Stated she has a ACCOUNTING SOFTWARE SPECIALIST named Chelly but the number she provided was not accurate. Also stated that her son Ke helps her but his number on file is not in service. Pt stated she gets all of her medications from the [facility], so I asked if everything that is current from the pharmacy is what she is currently taking and she said yes. Did med rec based on pharmacy claim history.
--- NOTE | 2021-10-11 09:00 | PC.NURSE ---
pt seen by dr. guerrero, pt aware of plan of care
[2021-10-11] MEDS: 0.9 % Sodium Chloride Flush 3 ML SYRINGE IVFLUSH ×2 (09:12→16:02)
--- NOTE | 2021-10-11 09:43 | PC.NURSE ---
pt to go to dialysis, pt aware of plan of care.
--- NOTE | 2021-10-11 09:47 | PC.NURSE ---
pt off to dialysis via stretcher.
--- NOTE | 2021-10-11 10:56 | HO.PM.IMPN ---
Subjective Subjective Date of Service: 10/11/21 Interval History: Seen in follow-up for asthma exacerbation, mild hypoxia. Interval history: She is feeling better still have some wheezes. Less short of breath. Review of Systems Shortness of breath, wheezing, no fever Physical Exam Vital Signs: Vital Signs: Last Vital Signs Temp 97.8 F 10/11/21 09:27 Pulse 81 10/11/21 09:27 Resp 20 10/11/21 09:27 BP 189/89 H 10/11/21 09:27 Pulse Ox 97 10/11/21 09:27 BMI result Body Mass Index 24.0 Const: Other: General: AO X 3, no acute distress Resp: rhonchi and wheezes CVS: S1,S2,RRR GI: +BS, NT, no distention Skin: No rash Neuro: motor grossly intact Psych: appropriate affect Objective Data Active Medications Acetaminophen (Acetaminophen 325 Mg Tablet) 650 mg PO Q6H PRN PRN Reason: Pain, Mild (Pain Scale 1-3) Albuterol/Ipratropium (Albuterol/Iprat 2.5/0.5mg 3 Ml Ampul.Neb) 3 ml INHALE RQ4H WHILE AWAKE [facility] Last Admin: 10/11/21 07:59 Dose: 3 ml Documented by: BLASCL Albuterol/Ipratropium (Albuterol/Iprat 2.5/0.5mg 3 Ml Ampul.Neb) 3 ml INHALE RQ4H PRN PRN Reason: Wheezing Buprenorphine/Naloxone (Buprenorphine/Naloxone 8/2 Mg Film) 1 film SUBLINGUAL BID [facility] Dextrose (Dextrose 50 % 25 Gm/50 Ml Syringe) 25 gm IVPUSH Q15M PRN; Protocol PRN Reason: per Hypoglycemia Standing Ord. Glucose (Glucose Gel 15 Gm Gel..Gram.) 15 gm PO Q15M PRN; Protocol PRN Reason: per Hypoglycemia Standing Ord. Heparin Sodium (Porcine) (Heparin Sodium,Porcine 5,000 Unit/Ml Vial) 5,000 unit SUBCUT Q8H [facility] Last Admin: 10/11/21 09:12 Dose: 5,000 unit Documented by: SCOC Hydromorphone HCl (Hydromorphone Hcl 1 Mg/Ml Syringe) 0.5 mg IVPUSH Q4H PRN; Protocol PRN Reason: Pain, Severe (Pain Scale 7-10) Insulin Human Lispro (Insulin Lispro 100 Unit/Ml 3 Ml Vial) 0 unit SUBCUT QIDACHS [facility]; Protocol Last Admin: 10/11/21 08:00 Dose: 4 unit Documented by: PING Melatonin (Melatonin 3 Mg Tablet) 6 mg PO BEDTIME PRN PRN Reason: Insomnia Methylprednisolone Sodium Succinate (Methylprednisolone Sod Succ 40 Mg/Ml Vial) 40 mg IVPUSH Q6H [facility] Last Admin: 10/11/21 05:44 Dose: 40 mg Documented by: MIRELLA Pharmacy Consult (Consult Rx Perform Med Rec) 1 each MISCELLANE ONCE PRN PRN Reason: Consult order Senna (Sennosides 8.6 Mg Tablet) 17.2 mg PO BEDTIME PRN PRN Reason: Constipation Sodium Chloride (0.9 % Sodium Chloride Flush 3 Ml Syringe) 3 ml IVFLUSH QSHIFT [facility] Last Admin: 10/11/21 09:12 Dose: 3 ml Documented by: PING Labs CBC & Chem 7: 10/10/21 20:50 10/11/21 00:35 Labs: Laboratory Results - last 24 hr 10/10/21 10/10/21 10/10/21 20:50 20:50 20:50 MCV 89.8 MCH 28.7 MCHC 31.9 RDW 14.2 Plt Count 248 MPV 8.8 L Immature Gran % (Auto) 0.3 Neut % (Auto) 83.1 H Lymph % (Auto) 8.3 L [place] % (Auto) 5.7 Eos % (Auto) 2.3 Baso % (Auto) 0.3 Lymph # (Auto) 0.8 L [place] # (Auto) 0.5 Eos # (Auto) 0.2 Baso # (Auto) 0.0 Abs Immat Gran (auto) 0.03 Absolute Neuts (auto) 7.8 Absolute Nucleated RBC 0.000 Nucleated RBC % (auto) 0.0 Anion Gap Estim Creat Clear Calc Estimated GFR POC Glucose Random Glucose Lactic Acid 0.5 Calcium Total Bilirubin AST ALT Alkaline Phosphatase Troponin I High Sens Total Protein Albumin COVID-19 (KRYSTINA) Negative COVID-19 Clin Com See Note 10/10/21 10/11/21 10/11/21 20:50 00:33 00:35 MCV MCH MCHC RDW Plt Count MPV Immature Gran % (Auto) Neut % (Auto) Lymph % (Auto) [place] % (Auto) Eos % (Auto) Baso % (Auto) Lymph # (Auto) [place] # (Auto) Eos # (Auto) Baso # (Auto) Abs Immat Gran (auto) Absolute Neuts (auto) Absolute Nucleated RBC Nucleated RBC % (auto) Anion Gap 18 Estim Creat Clear Calc 6.7 Estimated GFR 6 POC Glucose 162 H Random Glucose 175 H Lactic Acid Calcium 8.9 Total Bilirubin 0.3 AST 22 ALT 10 Alkaline Phosphatase 157 H Troponin I High Sens 53.5 H* Total Protein 7.2 Albumin 3.6 COVID-19 (KRYSTINA) COVID-19 AccuVein 10/11/21 07:08 MCV MCH MCHC RDW Plt Count MPV Immature Gran % (Auto) Neut % (Auto) Lymph % (Auto) [place] % (Auto) Eos % (Auto) Baso % (Auto) Lymph # (Auto) [place] # (Auto) Eos # (Auto) Baso # (Auto) Abs Immat Gran (auto) Absolute Neuts (auto) Absolute Nucleated RBC Nucleated RBC % (auto) Anion Gap Estim Creat Clear Calc Estimated GFR POC Glucose 220 H Random Glucose Lactic Acid Calcium Total Bilirubin AST ALT Alkaline Phosphatase Troponin I High Sens Total Protein Albumin COVID-19 (KRYSTINA) COVID-19 Clin [facility] Assessment and Plan (1) Asthma with exacerbation: Status: Acute (2) Congestive heart failure: Status: Acute (3) End stage chronic kidney disease: Status: Acute (4) ESRD (end stage renal disease): Status: Acute Plan 66-year-old female with a past medical history of hypertension, hyperlipidemia, CAD, CHF, CKD/ ESRD on hemodialysis, asthma, anemia, history of anasarca, ascites; presented to the hospital today with a chief complaint of shortness of breath.? ?noted to have following: Mild acute asthma exacerbation: Will give the patient Solu-Medrol IV q.i.d., change to prednisone in the morning Nebulizations standing and p.r.n. Supplemental oxygen p.r.n. Mild hypoxia:? likely from fluid overload and should improve with dialysis diastolic CHF:? Patient chest x-ray showed mild congestion.? Patient due for hemodialysis today.? Continue Bumex, elevated trop d/t CKD History of ESRD:?HD TTS Nephrology consult.? History of opiate dependence: Addiction Medicine consult.? History of hypertension / hyperlipidemia: Continue home medications DVT prophylaxis:? Subcu heparin Code status: Full code Quality Stroke Does the patient have a stroke diagnosis?: No VTE Prior VTE?: No VTE Risk Level:: Medical - moderate - high VTE Device Contraindication: Treatment Not Indicated VTE Drug Contraindication: N/A - Med Ordered
--- NOTE | 2021-10-11 11:23 | P.CDIC_ITS ---
CDI Concurrent Query Documentation Clarification: PHYSICIAN'S DOCUMENTATION REQUEST Date of Query: 10/11/21 1123 Patient Name: Cruz Muller Admit Date: 10/10/21 Dear Doctor, A review of the medical record indicates additional documentation may be needed. Please review below and update the documentation accordingly. Clinical Indicators: Is there a diagnosis that correlates to these lab findings: Risk Factors/Clinical Indicators/Treatments Labs: sodium 130 L IV fluids Please indicate in your progress notes if you are in agreement that the above diagnosis is valid for this patient: Hyponatremia or other etiology of lab findings: * Yes, [ ] is a valid diagnosis for this patient * No, [ ] is a not a valid diagnosis for this patient * Other (please specify) * Unable to determine Use of terms such as suspected, likely, concern for, or probable (associated with a specific diagnosis that is being evaluated, monitored, or treated as if it exists) are acceptable and can be coded in the inpatient setting, when docume nted at the time of discharge. Thank you, Khloe Kyle [facility], CDIS Extension: [phone] Please use your independent medical judgment in providing your response. THIS QUERY IS PART OF THE PERMANENT MEDICAL RECORD
--- NOTE | 2021-10-11 14:41 | PC.NURSE ---
pt is still at dialysis
--- NOTE | 2021-10-11 15:10 | MHC.CM.PN ---
Attempted to see pt to complete CM assessment: Pt off unit and at hemodialysis. Will reapproach when clinically appropriate.
--- NOTE | 2021-10-11 15:11 | PC.NURSE ---
rn to rn report given to fahad guardado transfer from dialysis to ed overflow unit.
[2021-10-11 15:30] LABS: Hematocrit 37.9 % (37.0-47.0); Hemoglobin 12.2 g/dl (12.0-16.0); Imm Gran Abs Auto 0.03 X10*3/uL (0.00-0.03); Imm Gran Pct Auto 0.4 % (0.0-0.4); Lymphocytes Absolute Auto 0.4 X10*3/uL (1.2-4.9); Lymphocytes Percent Auto 5.6 % (20-40); MANUAL DIFF FLAG SCAN; Mean Corpuscular HGB Conc 32.2 g/dl (31.0-35.0); Mean Corpuscular Hemoglobin 28.6 pg (27.0-33.0); Mean Corpuscular Volume 88.8 fL (80.0-98.0); Mean Platelet Volume 8.6 fL (9.4-12.3); Monocytes Absolute Auto 0.2 X10*3/uL (0.1-1.2); Monocytes Percent Auto 2.7 % (2-11); Neutrophils Absolute Auto 6.4 x10*3/uL (2.0-8.3); Neutrophils Percent Auto 91.3 % (45-73); Platelet Count 268 X10*3/uL (160-400); Red Blood Count 4.27 X10*6/uL (4.20-5.50); Red Cell Distribution Width 14.3 % (11.0-16.0); SCAN SMEAR FLAG 1
[2021-10-11 15:58] LABS: Troponin-I High Sensitivity 30.1 ng/L (<3.5-17.0)
[2021-10-11 15:59] LABS: Anion Gap 18 (12-20); Blood Urea Nitrogen 8 mg/dL (9-16); Calcium 9.5 mg/dL (8.4-10.2); Carbon Dioxide 28 mmol/L (22-29); Chloride 94 mmol/L (96-108); Estimated Glomerular Filt Rate 13; Glucose Random 245 mg/dL (60-115); Potassium 4.3 mmol/L (3.3-5.1); Sodium 136 mmol/L (135-145)
[2021-10-11] MEDS: Buprenorphine/Naloxone 8/2 mg FILM 1 FILM SUBLINGUAL ×2 (16:01→21:07)
[2021-10-11 16:30] LABS: SLIDE REVIEW VERIFIED
[2021-10-11 17:46] LABS: Glucose, Whole Blood 252 mg/dL (60-115)
[2021-10-11] MEDS: Acetaminophen 325 MG TABLET 650 MG PO (17:48)
--- NOTE | 2021-10-11 18:01 | PC.NURSE ---
Pt A&Ox4, lungs diminished throuhout, ST in the 100s on the monitor, pain 6/10 to head, pt continually moaning, placed on 2L NC which patient states she is supposed to wear at home but doesn't. Explained to pt this is possibly why she has a headache. Pt medicated as per [facility] orders including Tylenol for the headache. Pt is ambulatory with a steady gait. Call cruz within reach. Will continue to monitor.
--- NOTE | 2021-10-11 18:26 | PM.CNNEP ---
History of Present Illness Reason for Consult Consult date: 10/11/21 Reason for consult: ESRD on HD Chief Complaint Chief complaint: Asthma History of Present Illness Narrative: 66-year-old female with a past medical history of hypertension, hyperlipidemia, CAD, CHF, CKD/ ESRD on hemodialysis, asthma, anemia, history of anasarca, ascites; presented to the hospital today with a chief complaint of shortness of breath. Patient denies missing HD. ROS otherwise negative. Review of Systems Review of Systems Yes all other systems are reviewed and are negative PMFSH Past Medical History Medical History Abdominal pain Acute kidney injury superimposed on chronic kidney disease VANDANA (acute kidney injury) Anasarca Anemia Anemia in chronic kidney disease Ascites Bilateral edema of lower extremity CHF (congestive heart failure) CHF (congestive heart failure) CKD (chronic kidney disease) Constipation Constipation Diabetes mellitus Diastolic congestive heart failure End stage renal disease on dialysis End-stage renal disease (ESRD) ESRD (end stage renal disease) ESRD (end stage renal disease) on dialysis Essential hypertension Heart failure with preserved ejection fraction HTN (hypertension) HTN (hypertension) Hypertension Non-compliance Normocytic anemia Family History Family History Other Hypertension Surgical History Surgical History No pertinent past surgical history Social History Social History Household Members: None Housing: Apartment Do you presently have visiting nurse or other home services: Yes Alcohol intake: never Patient Tobacco Use Status: Current everyday Tobacco user Tobacco use type: Cigarette Cigarette Packs Per Day: 1 Cigarettes Per Day: 5 Years Smoked: 18 Smoked in Last 30 Days: No e-Cigarette/Vaping Use: Never Used Second Hand Smoke Exposure: No Use of substances other than those prescribed or required for medical reasons: No Substance Use Type: Heroin Advance Directives: Yes Advance Directives on File: Yes Advance Directives Date on File: 04/20/21 service: No Current occupational status: disabled Meds Allergies Allergy/AdvReac Type Severity Reaction Status Date / Time No Known Allergies Allergy Mild NOT Verified 10/10/21 20:00 APPLICABLE Active Medications: Current Medications Acetaminophen (Acetaminophen 325 Mg Tablet) 650 mg PO Q6H PRN PRN Reason: Pain, Mild (Pain Scale 1-3) Last Admin: 10/11/21 17:48 Dose: 650 mg Documented by: Albuterol/Ipratropium (Albuterol/Iprat 2.5/0.5mg 3 Ml Ampul.Neb) 3 ml INHALE RQ4H WHILE AWAKE [facility] Last Admin: 10/11/21 15:46 Dose: 3 ml Documented by: Albuterol/Ipratropium (Albuterol/Iprat 2.5/0.5mg 3 Ml Ampul.Neb) 3 ml INHALE RQ4H PRN PRN Reason: Wheezing Buprenorphine/Naloxone (Buprenorphine/Naloxone 8/2 Mg Film) 1 film SUBLINGUAL BID [facility] Last Admin: 10/11/21 16:01 Dose: 1 film Documented by: Dextrose (Dextrose 50 % 25 Gm/50 Ml Syringe) 25 gm IVPUSH Q15M PRN; Protocol PRN Reason: per Hypoglycemia Standing Ord. Glucose (Glucose Gel 15 Gm Gel..Gram.) 15 gm PO Q15M PRN; Protocol PRN Reason: per Hypoglycemia Standing Ord. Heparin Sodium (Porcine) (Heparin Sodium,Porcine 5,000 Unit/Ml Vial) 5,000 unit SUBCUT Q8H [facility] Last Admin: 10/11/21 16:01 Dose: 5,000 unit Documented by: Hydromorphone HCl (Hydromorphone Hcl 1 Mg/Ml Syringe) 0.5 mg IVPUSH Q4H PRN; Protocol PRN Reason: Pain, Severe (Pain Scale 7-10) Insulin Human Lispro (Insulin Lispro 100 Unit/Ml 3 Ml Vial) 0 unit SUBCUT QIDACHS [facility]; Protocol Last Admin: 10/11/21 17:48 Dose: 6 unit Documented by: Melatonin (Melatonin 3 Mg Tablet) 6 mg PO BEDTIME PRN PRN Reason: Insomnia Methylprednisolone Sodium Succinate (Methylprednisolone Sod Succ 40 Mg/Ml Vial) 40 mg IVPUSH Q6H [facility] Last Admin: 10/11/21 17:48 Dose: 40 mg Documented by: Pharmacy Consult (Consult Rx Perform Med Rec) 1 each MISCELLANE ONCE PRN PRN Reason: Consult order Senna (Sennosides 8.6 Mg Tablet) 17.2 mg PO BEDTIME PRN PRN Reason: Constipation Sodium Chloride (0.9 % Sodium Chloride Flush 3 Ml Syringe) 3 ml IVFLUSH QSHIFT [facility] Last Admin: 10/11/21 16:02 Dose: 3 ml Documented by: Home Medications Medication Instructions Recorded Confirmed Last Taken Type buprenorphine 8 mg-naloxone 2 mg 1 strip SUBLINGUAL BID 10/22/20 10/11/21 Unknown History sublingual film (Suboxone) diltiazem HCl 180 mg 360 mg PO DAILY 10/22/20 10/11/21 Unknown History capsule,extended release 24 hr olanzapine 10 mg tablet 10 mg PO BEDTIME 02/25/21 10/11/21 Unknown History bumetanide 2 mg tablet 2 mg PO DAILY 04/15/21 10/11/21 Unknown History fluticasone propionate 110 1 puff INHALATION BID 04/15/21 10/11/21 Unknown History mcg/actuation HFA aerosol inhaler (Flovent HFA) melatonin 5 mg tablet 5 mg PO BEDTIME PRN 04/15/21 10/11/21 Unknown History pantoprazole 40 mg tablet,delayed 40 mg PO DAILY 04/15/21 10/11/21 Unknown History release vitamin B comp no.3-folic acid 1 1 tab PO DAILY 04/15/21 10/11/21 Unknown History mg-vit C 60 mg-biotin 300 mcg tablet ([employer]) sennosides 8.6 mg tablet (senna) 1 - 2 tab PO BEDTIME PRN 05/11/21 10/11/21 Unknown History acetaminophen 500 mg tablet 500 mg PO Q8H PRN 06/10/21 10/11/21 Unknown History sevelamer carbonate 800 mg tablet 800 mg PO BIDWMEAL 06/10/21 10/11/21 Unknown History clonidine HCl 0.2 mg tablet 0.2 mg PO BID 07/27/21 10/11/21 Unknown History hydralazine 50 mg tablet 1 tab PO TID 07/27/21 10/11/21 Unknown History insulin aspart U-100 100 unit/mL 1 sliding scale dose SUBCUT 07/27/21 10/11/21 Unknown History subcutaneous cartridge (Novolog USEASDIRECTD PenFill U-100 Insulin aspart) trazodone 100 mg tablet 1 - 2 tab PO BEDTIME PRN 08/08/21 10/11/21 Unknown History insulin glargine 100 unit/mL 7 unit SUBCUT DAILY 09/18/21 10/11/21 Unknown History subcutaneous solution (Lantus U-100 Insulin) albuterol sulfate 3 ml INHALATION TID PRN 10/11/21 10/11/21 Unknown History aspirin 81 mg tablet,delayed 1 tab PO DAILY 10/11/21 10/11/21 Unknown History release Physical Exam Vital Signs: Last Vital Signs Temp 97.8 F 10/11/21 09:27 Pulse 96 10/11/21 15:46 Resp 20 10/11/21 15:46 BP 208/97 H 10/11/21 15:12 Pulse Ox 93 10/11/21 15:12 BMI result Body Mass Index 24.0 Const General: comfortable and no acute distress Orientation/consciousness: patient oriented x3 HEENT Head: Yes normocephalic Neck Neck: Yes no JVD Resp Auscultation: clear to auscultation bilaterally Cardio Jugular venous distension: no JVD Rate: regular rate Rhythm: regular rhythm Heart sounds: S1 normal heart sound present and S2 normal heart sound present GI Auscultation: normal bowel sounds Neuro General: patient oriented x3 Extrem General: Yes edema Results Lab Results Result Diagrams: 10/11/21 15:22 10/11/21 15:22 Lab results: Chemistry 10/11/21 10/11/21 00:35 15:22 Sodium 130 L 136 Potassium 4.4 4.3 Carbon Dioxide 23 28 BUN 22 H 8 L D Creatinine 7.13 H* 3.44 H Calcium 8.9 9.5 D Hematology 10/10/21 10/11/21 20:50 15:22 WBC 9.4 7.0 Hgb 11.3 L 12.2 Plt Count 248 268 Assessment and Plan (1) ESRD (end stage renal disease): Status: Acute Plan 66-year-old female with a past medical history of hypertension, hyperlipidemia, CAD, CHF, CKD/ ESRD on hemodialysis, asthma, anemia, history of anasarca, ascites; presented to the hospital today with a chief complaint of shortness of breath. IMPRESSION: 1. End-stage renal disease. 2. Heart failure with preserved ejection fraction. 3. Anemia. This is a patient with end-stage kidney disease presenting with sob. We will dialyze her today and optimize volume status. We will have her on a renal diet. No indication for CRUZITO. COntinue phosphate binders and resume her dialysis per outpatient schedule. Thank you for allowing me to participate in the care of this patient. Procedures Date of Service Date of Service: 10/11/21
[2021-10-11 21:05] LABS: Glucose, Whole Blood 149 mg/dL (60-115)
[2021-10-11] MEDS: Melatonin 3 MG TABLET 6 MG PO (21:07)
[2021-10-11 22:47] LABS: Glucose, Whole Blood 162 mg/dL (60-115)
[2021-10-11] MEDS: HYDROmorphone HCl 1 MG/ML SYRINGE 0.5 MG IVPUSH (23:26)
[2021-10-12] VITALS (11 sets, daily range): BP systolic 172–221; BP diastolic 91–163; PULSE 99–121; RESP 15–20; TEMP 37.1; O2SAT 92–97
[2021-10-12] MEDS: hydrALAZINE HCl 20 MG/ML VIAL 10 MG IVPUSH (01:08)
--- NOTE | 2021-10-12 02:01 | PC.NURSE ---
Pt continuous to moan at bedside Pt restless and unable to sleep Pt hypertensive Dr. Lowery aware
[2021-10-12] MEDS: Acetaminophen 325 MG TABLET 650 MG PO (02:34)
[2021-10-12] MEDS: Albuterol/Iprat 2.5/0.5MG 3 ML AMPUL.NEB INHALE ×2 (03:50→11:15)
[2021-10-12] MEDS: HYDROmorphone HCl 1 MG/ML SYRINGE 0.5 MG IVPUSH (03:58)
--- NOTE | 2021-10-12 04:36 | PC.NURSE ---
Pt non-compliant with O2 Pt repeatedly encouraged to keep NC on but pt continuous to remove it.
[2021-10-12] MEDS: methylPREDNISolone Sod Succ 40 MG/ML VIAL IVPUSH ×2 (06:07→11:30)
[2021-10-12 07:40] LABS: Glucose, Whole Blood 197 mg/dL (60-115)
[2021-10-12] MEDS: Buprenorphine/Naloxone 8/2 mg FILM 1 FILM SUBLINGUAL (08:03)
[2021-10-12] MEDS: Aspirin Enteric Coated 81 MG TABLET.DR PO (08:03)
[2021-10-12] MEDS: polyethylene glycoL 3350 17 GM POWD.PACK PO (08:03)
[2021-10-12] MEDS: hydrALAZINE HCl 50 MG TABLET PO (08:03)
[2021-10-12] MEDS: Multivitamin TABLET 1 TAB PO (08:04)
[2021-10-12] MEDS: Isosorbide Mononitrate 30 MG TAB.ER.24H PO (08:04)
[2021-10-12] MEDS: Sevelamer Carbonate Tablet 800 MG TABLET PO (08:04)
[2021-10-12] MEDS: cloNIDine HCL 0.2 MG TABLET PO (08:04)
[2021-10-12] MEDS: Bumetanide 1 MG TABLET 2 MG PO (08:04)
[2021-10-12] MEDS: Insulin Lispro 100 UNIT/ML 3 ML VIAL SUBCUT (08:05)
[2021-10-12] MEDS: 0.9 % Sodium Chloride Flush 3 ML SYRINGE IVFLUSH (08:05)
[2021-10-12] MEDS: Heparin Sodium,Porcine 5,000 UNIT/ML VIAL 5000 UNIT SUBCUT (08:22)
--- NOTE | 2021-10-12 09:21 | MHC.CM.PN ---
CM met with Patient at bedside and addressed IMM with her with the assist of [facility] [place] interpretation (original IMM given to Patient and a copy has been placed on the chart). Patient lives alone in her apartment and she attends HD she believes at [facility] but she is unsure of what days. Patient has a CCA RN and also a [employer] QD from 1-8 PM. Home/resume said services is the goal and CM has initiated and will follow for dc planning. Patient has received Covid vax X3 and PCP is Dr. Kori Younger.
--- NOTE | 2021-10-12 10:57 | PC.NURSE ---
Pt is A&Ox4, ambulatory with no assistance, continually taking off monitor, )2 and pulse ox. Pt is SR in monitor, O2 95% on 2L NC, 91% on RA, lungs with wheezes throughout. Pain to head only, pt had not had home meds prior to this morning. Abd soft, non tender, +BS at this time. Pt states she would like to go home, feeling better and is lonely here. Would like to be home with her son. aware, plan for DC later today.
--- NOTE | 2021-10-12 11:33 | PM.DS ---
DS: Providers Provider Date of Service: 10/12/21 Date of admission: 10/10/21 23:34 Primary care physician: Kori Younger MD Consults: 10/10/21 23:34 Consult to Nephrology Routine Consulting Provider: Humza Sanders Reason for consultation: esrd 10/11/21 02:06 Addiction Medicine Routine Consulting Provider: Heidy De La Fuente Reason for consultation: pt on suboxone DS: Diagnosis Discharge Diagnosis (1) ESRD (end stage renal disease): Status: Acute DS: Summary Hospital Course Hospital Course: from intial hpi: Chief Complaint: sob ? 66-year-old female with a past medical history of hypertension, hyperlipidemia, CAD, CHF, CKD/ ESRD on hemodialysis, asthma, anemia, history of anasarca, ascites; presented to the hospital today with a chief complaint of shortness of breath.? Patient is a poor historian.? Patient reports that over the past couple days she has been having nausea home vomiting and has been having decreased oral intake.? Patient also reports she has been having shortness of breath which has been gradually any worsening over the past few days.? Denies any chest pain or palpitations.? Mentions she has been complaint with her hemodialysis sessions.? Also mentions she has been tolerated with home medications.? Denies any abdominal discomfort.? Denies any urinary symptoms.? Review of all other systems is negative except mentioned above ER course: Per ER team patient on presentation noted to be saturating 88%; normal exam noted to have fine crackles as well as bilateral wheezing; concern for asthma exacerbation; given nebulizations and steroids.? Patient oxygenation improved to 93% on room air.? Admitted to the hospital for further management. Hospital course: patient was admitted for acute on chronic hypoxic respiratory failure due to COPD/moderate persistent asthma with acute decompensation in addition to acute on chronic diastolic CHF/fluid overload in the setting of end-stage renal disease with anasarca/ascites. Patient was treated with steroids, bronchodilators, hemodialysis with fluid removal. Her symptoms significantly improved. At time of discharge patient is still fairly wheezy, however, she reports being back to baseline and denies shortness of breath. She will be discharged home on 5 more days of prednisone. For her opiate dependence she will continue on Suboxone. For diabetes should continue on insulin, for hypertension she will continue on her same home regimen. Time Spent with Patient Time attestation: Total time spent providing and/or coordinating discharge services: Discharge coordination time: Greater than 30 minutes Quality: Safe Use of Opioids Does Pt have an Active Cancer Diagnosis on the Problem List?: No Quality: Stroke Does the patient have a stroke diagnosis?: No Physical Exam Vital Signs: Vital Signs: Last Vital Signs Temp 98.8 F 10/12/21 02:42 Pulse 99 10/12/21 11:17 Resp 15 10/12/21 11:17 BP 172/95 H 10/12/21 08:03 Pulse Ox 95 10/12/21 08:03 BMI result Body Mass Index 24.0 General: AO X 3, no acute distress Resp: wheezing bilateral, no accessory muscles used CVS: S1,S2,RRR GI: soft, non tender, non distended Neuro: motor grossly intact, alert Psych: appropriate affect, appropriate insight DS: Data Data Completed and Pending Completed studies during hospitalization [Text1]: Procedures Assistance with Respiratory Ventilation, Less than 24 Consecutive Hours, Continuous Positive Airway Pressure (07/27/21) Excision of Left Kidney, Percutaneous Approach, Diagnostic (02/25/21) Excision of Right Kidney, Percutaneous Approach, Diagnostic (10/22/20) Insertion of Infusion Device into Superior Vena Cava, Percutaneous Approach (02/25/21) Insertion of Tunneled Vascular Access Device into Chest Subcutaneous Tissue and Fascia, Percutaneous Approach (02/25/21) Performance of Urinary Filtration, Intermittent, Less than 6 Hours Per Day (09/18/21) Transfusion of Nonautologous Red Blood Cells into Peripheral Vein, Percutaneous Approach (02/25/21) Labs on day of discharge: Laboratory Results - last 24 hr 10/11/21 10/11/21 10/11/21 15:22 15:22 15:22 WBC 7.0 RBC 4.27 Hgb 12.2 Hct 37.9 MCV 88.8 MCH 28.6 MCHC 32.2 RDW 14.3 Plt Count 268 MPV 8.6 L Immature Gran % (Auto) 0.4 Neut % (Auto) 91.3 H Lymph % (Auto) 5.6 L [place] % (Auto) 2.7 Eos % (Auto) 0.0 Baso % (Auto) 0.0 Lymph # (Auto) 0.4 L [place] # (Auto) 0.2 Eos # (Auto) 0.0 Baso # (Auto) 0.0 Abs Immat Gran (auto) 0.03 Absolute Neuts (auto) 6.4 Absolute Nucleated RBC 0.000 Nucleated RBC % (auto) 0.0 Smear Tech's Comments VERIFIED Sodium 136 Potassium 4.3 Chloride 94 L Carbon Dioxide 28 Anion Gap 18 BUN 8 L D Creatinine 3.44 H Estim Creat Clear Calc 14.0 Estimated GFR 13 POC Glucose Random Glucose 245 H Calcium 9.5 D Troponin I High Sens 30.1 H 10/11/21 10/11/21 10/11/21 17:41 21:01 22:44 WBC RBC Hgb Hct MCV MCH MCHC RDW Plt Count MPV Immature Gran % (Auto) Neut % (Auto) Lymph % (Auto) [place] % (Auto) Eos % (Auto) Baso % (Auto) Lymph # (Auto) [place] # (Auto) Eos # (Auto) Baso # (Auto) Abs Immat Gran (auto) Absolute Neuts (auto) Absolute Nucleated RBC Nucleated RBC % (auto) Smear Tech's Comments Sodium Potassium Chloride Carbon Dioxide Anion Gap BUN Creatinine Estim Creat Clear Calc Estimated GFR POC Glucose 252 H 149 H 162 H Random Glucose Calcium Troponin I High Sens 10/12/21 07:29 WBC RBC Hgb Hct MCV MCH MCHC RDW Plt Count MPV Immature Gran % (Auto) Neut % (Auto) Lymph % (Auto) [place] % (Auto) Eos % (Auto) Baso % (Auto) Lymph # (Auto) [place] # (Auto) Eos # (Auto) Baso # (Auto) Abs Immat Gran (auto) Absolute Neuts (auto) Absolute Nucleated RBC Nucleated RBC % (auto) Smear Tech's Comments Sodium Potassium Chloride Carbon Dioxide Anion Gap BUN Creatinine Estim Creat Clear Calc Estimated GFR POC Glucose 197 H Random Glucose Calcium Troponin I High Sens Preliminary micro results at discharge 10/10/21 20:50 Blood Culture - Preliminary Blood - Venous No growth after 24 hours. Discharge Plan Discharge Patient Disposition: Home, Self-Care Discharge Diagnosis: fluid overload, copd Referrals: Kori Younger MD [Primary Care Provider] - 1 Week Discharge Medications: New prednisone 20 mg tablet 40 mg PO DAILY Qty: 10 0RF Continued buprenorphine-naloxone [Suboxone] 8-2 mg film 1 strip sublingual BID 0RF diltiazem HCl 180 mg capsule,extended release 24hr 360 mg PO DAILY 0RF acetaminophen 500 mg Tablet 500 mg PO Q8H PRN (Reason: Pain, Mild) 0RF sevelamer carbonate 800 mg tablet 800 mg PO BIDWMEAL 0RF clonidine HCl 0.2 mg tablet 0.2 mg PO BID 0RF hydralazine 50 mg tablet 1 tab PO TID 0RF insulin aspart U-100 [Novolog PenFill U-100 Insulin] 100 unit/mL Cartridge 1 sliding scale dose SUBCUT USEASDIRECTD 0RF Protocol: Insulin Correction Scale Less than or equal to 110 ---- Give (units): 0 111 to 150 Give (units): 0 151 to 200 Give (units): 4 201 to 250 Give (units): 6 251 to 300 Give (units): 8 301 to 350 Give (units): 10 Greater than 350 Give (units): 12 Call MD if Blood Glucose > : 350 trazodone 100 mg tablet 1 - 2 tab PO BEDTIME PRN (Reason: constipation) 0RF polyethylene glycol 3350 [Miralax] 17 gram/dose powder 17 g PO DAILY 30 Days Qty: 510 0RF olanzapine 10 mg tablet 10 mg PO BEDTIME 0RF amlodipine 10 mg Tablet 10 mg PO BEDTIME Qty: 30 0RF Protocol: Hold for SBP< HOLD for SBP < : 90 Rx Instructions: replaces prior dose of 5 mg daily bumetanide 2 mg Tablet 2 mg PO DAILY 0RF pantoprazole 40 mg Tablet,Delayed Release (Dr/Ec) 40 mg PO DAILY 0RF melatonin 5 mg Tablet 5 mg PO BEDTIME PRN (Reason: Sleep) 0RF DEPUTY SHERIFF GENERALIST/BAILIFF-[facility] Rx 1-60-300 mg-mg-mcg Tablet 1 tab PO DAILY 0RF Flovent HFA 110 mcg/actuation Hfa Aerosol Inhaler 1 puff INHALATION BID 0RF sennosides [senna] 8.6 mg tablet 1 - 2 tab PO BEDTIME PRN (Reason: constipation) 0RF Lantus U-100 Insulin 100 unit/mL solution 7 unit subcut DAILY 0RF isosorbide mononitrate 30 mg Tablet Extended Release 24 Hr 30 mg PO DAILY Qty: 30 0RF Protocol: Hold for SBP< HOLD for SBP < : 90 albuterol sulfate 2.5 mg /3 mL (0.083 %) solution for nebulization 3 ml inhalation TID PRN (Reason: Shortness Of Breath) 0RF aspirin 81 mg tablet,delayed release (DR/EC) 1 tab PO DAILY 0RF Discharge Orders: Discharge Order (Routine); Ordered 10/12/21 Ordered By: Franck James Diet: advance to usual diet Activity on Discharge: As tolerated Stand Alone Forms: Patient Portal Discharge page Care Plan Goals: recovery Health Concerns: esrd, copd Plan of Treatment: follow up hd, prednisone 5 days Assessment: see above
--- NOTE | 2021-10-12 11:59 | MHC.CM.PN ---
Patient has been medically cleared for dc to home today, self care.
[2021-10-12 12:16] LABS: Glucose, Whole Blood 122 mg/dL (60-115)
--- NOTE | 2021-10-12 19:53 | PM.PNNEP ---
Subjective Subjective Date of Service: 10/12/21 Interval history: Seen in follow-up for asthma exacerbation, mild hypoxia. Interval history: She is feeling better still have some wheezes. Less short of breath. Chart Reviewed. Events noted. Physical Exam Vital Signs: Vital Signs: Last Vital Signs Temp 98.8 F 10/12/21 02:42 Pulse 100 10/12/21 11:37 Resp 20 10/12/21 11:37 BP 193/93 H 10/12/21 11:37 Pulse Ox 94 10/12/21 11:37 BMI result Body Mass Index 24.0 Const: General: comfortable and no acute distress HEENT: Head: Yes normocephalic and Yes atraumatic Neck: Neck: Yes no JVD Resp: Auscultation: clear to auscultation bilaterally Cardio: Jugular venous distension: no JVD Rate: regular rate Rhythm: regular rhythm Heart sounds: S1 normal heart sound present and S2 normal heart sound present GI: Auscultation: normal bowel sounds Skin: Rashes: no rashes Neuro: General: no focal motor deficits Extrem: General: Yes no clubbing, cyanosis or edema Objective Data Labs CBC & Chem 7: 10/11/21 15:22 10/11/21 15:22 Labs: Laboratory Results - last 24 hr 10/11/21 10/11/21 10/12/21 21:01 22:44 07:29 POC Glucose 149 H 162 H 197 H 10/12/21 12:06 POC Glucose 122 H Microbiology Microbiology Results: Microbiology 10/11/21 15:59 Blood - Venous Blood Culture - Preliminary No growth after 24 hours. 10/10/21 20:50 Blood - Venous Blood Culture - Preliminary No growth after 24 hours. Procedures Date of Service Date of Service: 10/12/21 Assessment & Plan Assessment and plan (1) ESRD (end stage renal disease): Status: Acute Plan 66-year-old female with a past medical history of hypertension, hyperlipidemia, CAD, CHF, CKD/ ESRD on hemodialysis, asthma, anemia, history of anasarca, ascites; presented to the hospital with a chief complaint of shortness of breath. IMPRESSION: 1. End-stage renal disease. 2. Heart failure with preserved ejection fraction. 3. Anemia. ? This is a patient with end-stage kidney disease presenting with sob. Continue TTS schedule. We will have her on a renal diet. No indication for CRUZITO. COntinue phosphate binders and resume her dialysis per outpatient schedule. ? Thank you for allowing me to participate in the care of this patient. Time Spent With Patient Time: Total time spent is greater than 50% in coordination of care (as documented) at patient's floor/unit and/or counseling patient: Progress Note: Quality Stroke Does the patient have a stroke diagnosis?: No
== END 2021-10-12 17:00 | disposition home or self-care (01) | DRG 202 ==
LOC: HO.ED 23:41 → HO.EDOVER 23:47
PROVIDERS: Internal Medicine; Admitting Provider Hospitalist; Emergency Provider Internal Medicine; PCP Family Medicine; Visit Provider Internal Medicine
DX: J45.41 Moderate persistent asthma with (acute) exacerbation (principal); N18.6 End stage renal disease; I50.32 Chronic diastolic (congestive) heart failure; I13.2 Hypertensive heart and chronic kidney disease with heart failure and with stage 5 chronic kidney disease, or end stage renal disease; F11.20 Opioid dependence, uncomplicated; R09.02 Hypoxemia; D63.1 Anemia in chronic kidney disease; E11.22 Type 2 diabetes mellitus with diabetic chronic kidney disease; Z20.822 Contact with and (suspected) exposure to COVID-19; Z99.2 Dependence on renal dialysis; Z79.4 Long term (current) use of insulin; Z79.52 Long term (current) use of systemic steroids; Z79.82 Long term (current) use of aspirin; Z79.899 Other long term (current) drug therapy
CPT/HCPCS: 36415; 71045; 80048; 80053; 82947; 83605; 84484; 85025; 85027; 87040; 87635; 90999; 93005; 94640; 99285; J1170; J1940; J2920; J2930

== ENCOUNTER 2021-10-12 17:43 | Inpatient (IN) | payer OTHER, SELFPAY ==
[2021-10-12] VITALS (17 sets, daily range): BP systolic 110–222; BP diastolic 48–113; PULSE 83–114; RESP 18–34; TEMP 34.5–36.8; O2SAT 90–100; BMI 30.1
--- NOTE | ~2021-10-12 | XR_ITS ---
EXAMINATION: XR CHEST CLINICAL INFORMATION: Pulmonary edema. COMPARISON: Multiple priors, most recent chest radiograph dated 10/11/2019. TECHNIQUE: Frontal view of the chest was obtained. FINDINGS: There are diffuse, patchy bilateral airspace opacities, most prominent within the mid lungs. Findings are new when compared to the chest radiograph dated 10/10/2021. No pleural effusion or pneumothorax. Stable cardiomediastinal silhouette. Redemonstration of a dual-lumen right-sided central venous catheter in appropriate position. XR/XR chest 1V IMPRESSION: Diffuse, patchy bilateral airspace opacities which are new when compared to the chest radiograph dated 10/10/2021. Findings could represent acute pulmonary edema. An infectious or inflammatory process could be considered in the appropriate clinical setting.
--- NOTE | ~2021-10-12 | XR_ITS ---
EXAMINATION: XR CHEST CLINICAL INFORMATION: Central line placement COMPARISON: Chest radiograph earlier this evening 10:08 PM TECHNIQUE: Frontal view of the chest was obtained. FINDINGS: Since the study of one half hours ago the only interval change is placement of a right internal jugular central line with its tip at the SVC/RA junction 3.7 cm above the tip of the dialysis catheter which remains in good position. No pneumothorax is present. ET tube remains in good position about 5 cm above the sarah.. XR/XR chest 1V IMPRESSION: Newly placed right IJ central venous catheter in good position without complications.
--- NOTE | ~2021-10-12 | XR_ITS ---
EXAMINATION: XR CHEST CLINICAL INFORMATION: ET tube placement COMPARISON: Chest radiograph earlier this evening at 6:04 PM TECHNIQUE: Frontal view of the chest was obtained. FINDINGS: ET tube has been placed and is in good position 3.6 cm above sarah. Tunneled right IJ dialysis catheter in place with tip in mid right atrium. Again seen are diffuse pulmonary infiltrates. No large effusions are present. Heart size upper limits of normal. XR/XR chest 1V IMPRESSION: ET tube in good position 3.6 cm above the sarah.
--- NOTE | 2021-10-12 08:18 | ECG_ITS ---
Test Reason : SOB Blood Pressure : / mmHG Vent. Rate : 108 BPM Atrial Rate : 108 BPM P-R Int : 152 ms QRS Dur : 084 ms QT Int : 368 ms P-R-T Axes : 054 005 120 degrees QTc Int : 493 ms Poor data quality, interpretation may be adversely affected Sinus tachycardia Biatrial enlargement Minimal voltage criteria for LVH, may be normal variant ( [place] product ) T wave abnormality, consider lateral ischemia Abnormal ECG When compared with ECG of 12-OCT-2021 18:16, No significant change was found Referred By: Sonja Alex Electronically Signed By:Charan Hankins
--- NOTE | 2021-10-12 17:49 | ECG_ITS ---
Test Reason : SOB Blood Pressure : / mmHG Vent. Rate : 100 BPM Atrial Rate : 100 BPM P-R Int : 162 ms QRS Dur : 086 ms QT Int : 378 ms P-R-T Axes : 063 009 016 degrees QTc Int : 487 ms Normal sinus rhythm Biatrial enlargement Minimal voltage criteria for LVH, may be normal variant ( [place] product ) Nonspecific T wave abnormality Prolonged QT Abnormal ECG When compared with ECG of 10-OCT-2021 20:32, Nonspecific T wave abnormality, worse in Inferior leads T wave inversion now evident in Lateral leads Referred By: Sonja Alex Electronically Signed By:Charan Hankins
[2021-10-12] MEDS: Nitroglycerin 2 % Oint 1 GM Packet 1 INCH TRANSDERMA (18:02)
[2021-10-12] MEDS: Furosemide 100 MG/10 ML VIAL 80 MG IVPUSH (18:02)
--- NOTE | 2021-10-12 18:13 | ED.GENADULT ---
HPI - General Adult General Chief complaint: Dyspnea Stated complaint: Difficuilty Breathing Time Seen by Provider: 10/12/21 17:47 Source: EMS Mode of arrival: EMS Limitations: other (Respiratory distress) History of Present Illness HPI narrative: Patient comes to the emergency room complaining of severe shortness of breath. Patient was discharged from this hospital approximately 6 hours ago. Patient was here for COPD exacerbation, anasarca due to CHF/end-stage renal disease. Patient was dialyzed yesterday. When EMS arrived to the patient's residence, her oxygen saturation was in the low 80s, patient's severe respiratory distress, blood pressure above 220 systolic. EMS gave her 1 dose of sublingual nitroglycerin and was placed on CPAP. Prior to EMS arrival, the patient's family gave her 1 nebulization treatment without any relief. On arrival to the emergency room, patient is in severe respiratory distress, switched over to BiPAP. Patient has crackles. Patient is likely in flash pulmonary edema. Related Data Home Medications Medication Instructions Recorded Confirmed buprenorphine 8 mg-naloxone 2 mg 1 strip SUBLINGUAL BID 10/22/20 10/12/21 sublingual film (Suboxone) diltiazem HCl 180 mg 360 mg PO DAILY 10/22/20 10/12/21 capsule,extended release 24 hr olanzapine 10 mg tablet 10 mg PO BEDTIME 02/25/21 10/12/21 bumetanide 2 mg tablet 2 mg PO DAILY 04/15/21 10/12/21 fluticasone propionate 110 1 puff INHALATION BID 04/15/21 10/12/21 mcg/actuation HFA aerosol inhaler (Flovent HFA) melatonin 5 mg tablet 5 mg PO BEDTIME PRN 04/15/21 10/12/21 pantoprazole 40 mg tablet,delayed 40 mg PO DAILY 04/15/21 10/12/21 release vitamin B comp no.3-folic acid 1 1 tab PO DAILY 04/15/21 10/12/21 mg-vit C 60 mg-biotin 300 mcg tablet (HOMEBOUND TEACHER-[facility] Rx) sennosides 8.6 mg tablet (senna) 1 - 2 tab PO BEDTIME PRN 05/11/21 10/12/21 acetaminophen 500 mg tablet 500 mg PO Q8H PRN 06/10/21 10/12/21 sevelamer carbonate 800 mg tablet 800 mg PO BIDWMEAL 06/10/21 10/12/21 clonidine HCl 0.2 mg tablet 0.2 mg PO BID 07/27/21 10/12/21 hydralazine 50 mg tablet 1 tab PO TID 07/27/21 10/12/21 insulin aspart U-100 100 unit/mL 1 sliding scale dose SUBCUT 07/27/21 10/12/21 subcutaneous cartridge (Novolog USEASDIRECTD PenFill U-100 Insulin aspart) trazodone 100 mg tablet 1 - 2 tab PO BEDTIME PRN 08/08/21 10/12/21 insulin glargine 100 unit/mL 7 unit SUBCUT DAILY 09/18/21 10/12/21 subcutaneous solution (Lantus U-100 Insulin) albuterol sulfate 3 ml INHALATION TID PRN 10/11/21 10/12/21 aspirin 81 mg tablet,delayed 1 tab PO DAILY 10/11/21 10/12/21 release Previous Rx's Medication Instructions Recorded amlodipine 10 mg tablet 10 mg PO BEDTIME #30 tab 03/07/21 polyethylene glycol 3350 17 17 g PO DAILY 30 Days #510 g 08/12/21 gram/dose oral powder (Miralax) isosorbide mononitrate 30 mg 30 mg PO DAILY #30 tab 09/20/21 tablet,extended release 24 hr prednisone 20 mg tablet 40 mg PO DAILY #10 tab 10/12/21 Allergies Allergy/AdvReac Type Severity Reaction Status Date / Time No Known Allergies Allergy Mild NOT Verified 10/10/21 20:00 APPLICABLE Review of Systems Review of Systems: Yes Unobtainable due to mental condition [facility] Past Medical History Medical History Abdominal pain Acute kidney injury superimposed on chronic kidney disease VANDANA (acute kidney injury) Anasarca Anemia Anemia in chronic kidney disease Ascites Bilateral edema of lower extremity CHF (congestive heart failure) CHF (congestive heart failure) CKD (chronic kidney disease) Constipation Constipation Diabetes mellitus Diastolic congestive heart failure End stage renal disease on dialysis End-stage renal disease (ESRD) ESRD (end stage renal disease) ESRD (end stage renal disease) on dialysis Essential hypertension Heart failure with preserved ejection fraction HTN (hypertension) HTN (hypertension) Hypertension Non-compliance Normocytic anemia Surgical History No pertinent past surgical history Family History Family History Other Hypertension Social History Social History Household Members: None Housing: Apartment Do you presently have visiting nurse or other home services: Yes Alcohol intake: unknown Patient Tobacco Use Status: Tobacco use Unknown Tobacco use type: Cigarette Cigarette Packs Per Day: 1 Cigarettes Per Day: 5 Years Smoked: 18 e-Cigarette/Vaping Use: Never Used Second Hand Smoke Exposure: No Use of substances other than those prescribed or required for medical reasons: Unknown Substance Use Type: Heroin Advance Directives: Yes Advance Directives Information Provided: No Advance Directives on File: No Advance Directives Date on File: 04/20/21 service: No Current occupational status: disabled Physical Exam ED Vital Signs: Vital Signs - 24 hr 10/12/21 17:50 10/12/21 17:59 10/12/21 18:06 Temperature 98.2 F Pulse Rate 108 H 105 H Respiratory Rate 24 H 29 H 22 H Blood Pressure 222/113 H Pulse Oximetry 99 93 10/12/21 19:42 10/12/21 20:00 10/12/21 21:33 Temperature Pulse Rate 114 H 104 H Respiratory Rate 34 H 26 H 18 Blood Pressure 200/95 H Pulse Oximetry 95 91 L 10/12/21 22:13 10/12/21 22:34 10/12/21 22:38 Temperature Pulse Rate 101 H 83 92 Respiratory Rate 20 Blood Pressure 210/97 H 199/98 H 177/78 H Pulse Oximetry 100 99 100 10/12/21 22:45 Temperature Pulse Rate 86 Respiratory Rate Blood Pressure 187/81 H Pulse Oximetry 97 BMI result Body Mass Index 30.1 Const Other: Appearance: Alert. In severe distress Eyes: Pupils equal, round and reactive to light. ENT: Pharynx normal. Neck: Normal inspection. Neck supple. No lymph nodes noted. No crepitus CVS: Normal heart rate and rhythm. Pulses normal. Normal S1 and S2 Respiratory: In severe respiratory distress, bilateral crackles, no wheezing, on BiPAP Abdomen: Soft and nontender. No rigidity. No distention. Skin: Skin warm and dry. Normal skin color. Normal skin turgor. Extremities: +1 pitting edema bilaterally Neuro: CN 2 through 12 grossly intact Psych cooperative Course Course Course Narrative: On arrival, patient was switched to BiPAP, patient was given IV Lasix 80 mg, nitro paste. I discussed with the patient that if she does not improve, she may need to be intubated. Patient agrees with plan. In the meantime, we will treat avoid intubation. Patient has been 2 hours on BiPAP, patient took the BiPAP off, oxygen immediately dropped to the low 80s. BiPAP was restarted on bipap. Oxygen saturation back to the mid 90s. However, patient is still struggling to breathe, very uncomfortable. At this time, were trying to find an ICU bed. Is possible that patient might have to be intubated. Patient is not stable enough for the floor White blood cell count is elevated , patient started on azithromycin and ceftriaxone. pt in flash pulmonary edema, fluids are contraindicated. sepsis not suspected. Elevated Cr is chronic. Pt will need I discussed the EKG and troponin with Dr. Hankins from Cardiology, at this time, given the high blood pressure it is likely secondary to hypertensive emergency. Patient will be started on nicardipine drip. Hydralazine to be avoided. Patient's oxygen saturation remained in the low 90s on BiPAP, however, patient became fatigued, started to become more somnolent, patient needs to be intubated. Patient has several medications running, poor access, patient has now a central line. I discussed the patient with Dr. Casas, patient being admitted to the ICU Procedures Central Line Placement Right IJ: Time Out Performed: Yes Patient Placed on Monitor/Pulse Ox: Yes MD Prep: mask, gown and gloves Central Line Prep: Chlorhexidine scrub Ultrasound Used for Placement: Yes Central Line Lumen Inserted: triple Post Procedure: sutured in place, good blood return, all ports aspirated, flushed, capped and sterile dressing applied Post Procedure X-Ray: tip of catheter in good position and no pneumothorax seen Patient Tolerated Procedure: well and no complications Complications: none Intubation Time out performed: Yes sedative: Etomidate Mg Given: 20 paralytic: Rocuronium Mg Given: 50 ET Tube Size: 7.5 ET Tube Uncuffed: No Tube Secured Depth (cm): 23 Tube Secured Location: lips Tube Placement Confirmation: visualized tube passing through cords, equal breath sounds bilaterally, no breath sounds over epigastrium and confirmation by capnometry Patient Tolerated Procedure: well and no complications Intubation Complications: none Medical Decision Making Lab Data Result diagrams: 10/12/21 20:03 10/12/21 20:03 Labs: Lab Results 10/12/21 10/12/21 10/12/21 Range/Units 20:03 20:03 20:03 WBC 23.4 H (4.8-10.8) X10*3/uL RBC 4.02 L (4.20-5.50) X10*6/uL Hgb 11.7 L (12.0-16.0) g/dl Hct 36.2 L (37.0-47.0) % MCV 90.0 (80.0-98.0) fL MCH 29.1 (27.0-33.0) pg MCHC 32.3 (31.0-35.0) g/dl RDW 14.6 (11.0-16.0) % Plt Count 312 (160-400) X10*3/uL MPV 9.8 (9.4-12.3) fL Immature Gran % (Auto) 0.8 H (0.0-0.4) % Neut % (Auto) 91.9 H (45-73) % Lymph % (Auto) 1.9 L (20-40) % [place] % (Auto) 5.3 (2-11) % Eos % (Auto) 0.0 (0-4) % Baso % (Auto) 0.1 (0-2) % Lymph # (Auto) 0.4 L (1.2-4.9) X10*3/uL [place] # (Auto) 1.2 (0.1-1.2) X10*3/uL Eos # (Auto) 0.0 (0.0-0.4) X10*3/uL Baso # (Auto) 0.0 (0.0-0.2) X10*3/uL Abs Immat Gran (auto) 0.18 H (0.00-0.03) X10*3/uL Absolute Neuts (auto) 21.5 H (2.0-8.3) x10*3/uL Absolute Nucleated RBC 0.000 (0.0-0.012) X10*3/uL Nucleated RBC % (auto) 0.0 (0.0-0.2) /100WBC Smear Tech's Comments VERIFIED PT (9.9-13.0) SEC INR (0.9-1.1) VBG pH (7.32-7.43) VBG pCO2 mmHg VBG pO2 mmHg VBG HCO3 (22-26) mmol/L VBG O2 Saturation % VBG Base Excess mmol/L Sodium 133 L (135-145) mmol/L Potassium 4.4 (3.3-5.1) mmol/L Chloride 92 L (96-108) mmol/L Carbon Dioxide 25 (22-29) mmol/L Anion Gap 20 (12-20) BUN 30 H D (9-16) mg/dL Creatinine 5.70 H* (0.5-1.4) mg/dL Estim Creat Clear Calc 8.6 Estimated GFR 7 Random Glucose 232 H (60-115) mg/dL Calcium 9.5 (8.4-10.2) mg/dL Magnesium 2.6 (1.6-2.6) mg/dL Total Bilirubin 0.4 (0.0-1.0) mg/dL Direct Bilirubin 0.2 (0.0-0.5) mg/dL AST 41 H D (5-31) U/L ALT 17 (0-31) U/L Alkaline Phosphatase 162 H (39-117) U/L Troponin I High Sens (<3.5-17.0) ng/L B-Natriuretic Peptide (<100) pg/mL Total Protein 7.8 (6.5-8.0) g/dL Albumin 4.0 (3.5-5.0) g/dL COVID-19 (KRYSTINA) Negative (Negative) COVID-19 Clin Com See Note 10/12/21 10/12/21 10/12/21 Range/Units 20:03 20:03 20:07 WBC (4.8-10.8) X10*3/uL RBC (4.20-5.50) X10*6/uL Hgb (12.0-16.0) g/dl Hct (37.0-47.0) % MCV (80.0-98.0) fL MCH (27.0-33.0) pg MCHC (31.0-35.0) g/dl RDW (11.0-16.0) % Plt Count (160-400) X10*3/uL MPV (9.4-12.3) fL Immature Gran % (Auto) (0.0-0.4) % Neut % (Auto) (45-73) % Lymph % (Auto) (20-40) % [place] % (Auto) (2-11) % Eos % (Auto) (0-4) % Baso % (Auto) (0-2) % Lymph # (Auto) (1.2-4.9) X10*3/uL [place] # (Auto) (0.1-1.2) X10*3/uL Eos # (Auto) (0.0-0.4) X10*3/uL Baso # (Auto) (0.0-0.2) X10*3/uL Abs Immat Gran (auto) (0.00-0.03) X10*3/uL Absolute Neuts (auto) (2.0-8.3) x10*3/uL Absolute Nucleated RBC (0.0-0.012) X10*3/uL Nucleated RBC % (auto) (0.0-0.2) /100WBC Smear Tech's Comments PT 10.5 (9.9-13.0) SEC INR 0.9 (0.9-1.1) VBG pH 7.39 (7.32-7.43) VBG pCO2 38 mmHg VBG pO2 152 mmHg VBG HCO3 23 (22-26) mmol/L VBG O2 Saturation 99.0 % VBG Base Excess -0.7 mmol/L Sodium (135-145) mmol/L Potassium (3.3-5.1) mmol/L Chloride (96-108) mmol/L Carbon Dioxide (22-29) mmol/L Anion Gap (12-20) BUN (9-16) mg/dL Creatinine (0.5-1.4) mg/dL Estim Creat Clear Calc Estimated GFR Random Glucose (60-115) mg/dL Calcium (8.4-10.2) mg/dL Magnesium (1.6-2.6) mg/dL Total Bilirubin (0.0-1.0) mg/dL Direct Bilirubin (0.0-0.5) mg/dL AST (5-31) U/L ALT (0-31) U/L Alkaline Phosphatase (39-117) U/L Troponin I High Sens 787.7 H* D (<3.5-17.0) ng/L B-Natriuretic Peptide 8105 H (<100) pg/mL Total Protein (6.5-8.0) g/dL Albumin (3.5-5.0) g/dL COVID-19 (KRYSTINA) (Negative) COVID-19 Clin Com Critical Care Time Critical Care Time Critical Care Time: Yes Total Critical Care Time: 180 Attestation: I have personally provided critical care time. Time includes review of lab data, radiology results, discussion with consultants, and monitoring for potential decompensation. Intervention performed as documented. Discharge Plan Discharge Clinical Impression: Flash pulmonary edema, Hypertensive emergency Patient Disposition: Admitted As Inpatient
--- NOTE | 2021-10-12 20:06 | PHA.MEDREC ---
Pharmacy Consult ? Medication Reconciliation Pharmacy has completed the medication reconciliation.
[2021-10-12 20:10] LABS: Basophils Percent Auto 0.1 % (0-2); Hematocrit 36.2 % (37.0-47.0); Hemoglobin 11.7 g/dl (12.0-16.0); Imm Gran Abs Auto 0.18 X10*3/uL (0.00-0.03); Imm Gran Pct Auto 0.8 % (0.0-0.4); Lymphocytes Absolute Auto 0.4 X10*3/uL (1.2-4.9); Lymphocytes Percent Auto 1.9 % (20-40); MANUAL DIFF FLAG SCAN; Mean Corpuscular HGB Conc 32.3 g/dl (31.0-35.0); Mean Corpuscular Hemoglobin 29.1 pg (27.0-33.0); Mean Platelet Volume 9.8 fL (9.4-12.3); Monocytes Absolute Auto 1.2 X10*3/uL (0.1-1.2); Monocytes Percent Auto 5.3 % (2-11); Neutrophils Absolute Auto 21.5 x10*3/uL (2.0-8.3); Neutrophils Percent Auto 91.9 % (45-73); Platelet Count 312 X10*3/uL (160-400); Red Blood Count 4.02 X10*6/uL (4.20-5.50); Red Cell Distribution Width 14.6 % (11.0-16.0); SCAN SMEAR FLAG 1; White Blood Count 23.4 X10*3/uL (4.8-10.8)
[2021-10-12 20:13] LABS: Venous Blood Gas Refer to POC result
[2021-10-12 20:14] LABS: VBG Base Excess -0.7 mmol/L; VBG HCO3 23 mmol/L (22-26); VBG pCO2 38 mmHg; VBG pH 7.39 (7.32-7.43); VBG pO2 152 mmHg
[2021-10-12 20:17] LABS: INTERNATIONAL NORM RATIO 0.9 (0.9-1.1); Prothrombin Time 10.5 SEC (9.9-13.0)
[2021-10-12 20:29] LABS: COVID-19 Test Negative (Negative)
--- NOTE | 2021-10-12 20:36 | PC.NURSE ---
pt not tolerated BiPap. respiratory and provider notified.
[2021-10-12 20:42] LABS: Alanine Aminotransferase 17 U/L (0-31); Alkaline Phosphatase 162 U/L (39-117); Anion Gap 20 (12-20); Aspartate Amino Transferase 41 U/L (5-31); Bilirubin Direct 0.2 mg/dL (0.0-0.5); Bilirubin Total 0.4 mg/dL (0.0-1.0); Blood Urea Nitrogen 30 mg/dL (9-16); Calcium 9.5 mg/dL (8.4-10.2); Carbon Dioxide 25 mmol/L (22-29); Chloride 92 mmol/L (96-108); Creatinine Clr Calc Pharmacy 8.6; Estimated Glomerular Filt Rate 7; Glucose Random 232 mg/dL (60-115); Magnesium 2.6 mg/dL (1.6-2.6); Potassium 4.4 mmol/L (3.3-5.1); Sodium 133 mmol/L (135-145); Total Protein 7.8 g/dL (6.5-8.0); Troponin-I High Sensitivity 787.7 ng/L (<3.5-17.0)
[2021-10-12 20:45] LABS: SLIDE REVIEW VERIFIED
--- NOTE | 2021-10-12 20:49 | PC.NURSE ---
pt a&ox3, pt continues to try and remove bipap mask, O2 drops to 80 when bipap is removed - 96% w bipap. pt sinus tach, hypertensive - manual blood pressure obtained, other vss.
[2021-10-12 21:00] LABS: B Type Natriuretic Peptide 8105 pg/mL (<100)
[2021-10-12] MEDS: LORazepam 2 MG/ML VIAL 0.5 MG IVPUSH (21:26)
[2021-10-12] MEDS: hydrALAZINE HCl 20 MG/ML VIAL IVPUSH (21:28)
[2021-10-12] MEDS: Etomidate 20 MG/10 ML VIAL IVPUSH (21:56)
[2021-10-12] MEDS: Rocuronium Bromide 50 MG/5 ML VIAL IVPUSH (21:57)
[2021-10-12] MEDS: propofoL 1,000 MG/100 ML VIAL 12.6 MG IVCONT (22:13)
[2021-10-12] MEDS: niCARdipine HCL 25 MG in 0.9 % Sodium Chloride 250 ML 52 MG IVCONT (23:00)
--- NOTE | 2021-10-12 23:22 | PM.CCHP ---
History of Present Illness Date of Service: 10/12/21 Attending physician on admission: Volodymyr Casas Chief Complaint: dyspnea The patient is a 66-year-old female with a past medical history of congestive heart failure, end-stage renal disease on hemodialysis (Sunday,,Sunday), diabetes? mellitus, hypertension,? asthma, anemia? and? polysubstance abuse on Suboxone? who was admitted? recently from 10/10/2021 until earlier today 10/12/21? for COPD exacerbation, anasarca due to CHF/end-stage renal disease. She presented again to the emergency room today via EMS? with complaints of worsening dyspnea.? According to EMS,? patient oxygenation at home was low 80s? and she was in severe respiratory distress.? Systolic blood pressures 220. ? She received? 1 dose of sublingual? nitroglycerin and was placed on CPAP EN route to hospital.? On arrival to the emergency room,? patient was in severe resp? distress,? pulse 105, resp rate 30s,? and BP 222/113. She was placed on BiPAP upon arrival? but later require emergent intubation? due to becoming more somnolent? and continuing with increased work of breathing.? Laboratory data? significant for:? WBC 23.4,? sodium 133, chloride 92, BUN 30, creatinine 5.70, AST 41, alk-phos 162, troponin sensitivity 787 and? BNP 8105.? EKG: Nonspecific T wave in Inferior/lateral leads IMAGING:? ?Chest x-ray:? with evidence of pulmonary? edema ? ED course:? patient received? 80 mg of Lasix, 0.5 of Ativan, nitroglycerin? topical 1inch,? 20 of hydralazine, azithromycin for high ceftriaxone 1 g,? and started on? heparin drip and nicardipine drip.? ? Patient will be admitted to? ICU for management of acute toxic respiratory failure from pulmonary edema? requiring ventilatory support Review of Systems Review of Systems: UNABLE TO DO PATIENT IS INTUBATED PMFSH Past Medical History Medical History Abdominal pain Acute kidney injury superimposed on chronic kidney disease VANDANA (acute kidney injury) Anasarca Anemia Anemia in chronic kidney disease Ascites Bilateral edema of lower extremity CHF (congestive heart failure) CHF (congestive heart failure) CKD (chronic kidney disease) Constipation Constipation Diabetes mellitus Diastolic congestive heart failure End stage renal disease on dialysis End-stage renal disease (ESRD) ESRD (end stage renal disease) ESRD (end stage renal disease) on dialysis Essential hypertension Heart failure with preserved ejection fraction HTN (hypertension) HTN (hypertension) Hypertension Non-compliance Normocytic anemia Family History Family History Other Hypertension Surgical History Surgical History No pertinent past surgical history Social History Social History Household Members: None Housing: Apartment Do you presently have visiting nurse or other home services: Yes Alcohol intake: unknown Patient Tobacco Use Status: Tobacco use Unknown Tobacco use type: Cigarette Cigarette Packs Per Day: 1 Cigarettes Per Day: 5 Years Smoked: 18 e-Cigarette/Vaping Use: Never Used Second Hand Smoke Exposure: No Use of substances other than those prescribed or required for medical reasons: Unknown Substance Use Type: Heroin Advance Directives: Yes Advance Directives Information Provided: No Advance Directives on File: No Advance Directives Date on File: 04/20/21 service: No Current occupational status: disabled Meds Allergies Allergy/AdvReac Type Severity Reaction Status Date / Time No Known Allergies Allergy Mild NOT Verified 10/10/21 20:00 APPLICABLE Active Medications: Current Medications Heparin Sodium (Porcine) (Heparin Sodium,Porcine 5,000 Unit/Ml Vial) 2,800 unit 40 unit/kg (2800 unit) IVPUSH PROTOCOL BOLUS PRN; Protocol PRN Reason: 40 unit/kg - Heparin Protocol Heparin Sodium (Porcine) (Heparin Sodium,Porcine 5,000 Unit/Ml Vial) 5,600 unit 80 unit/kg (5600 unit) IVPUSH PROTOCOL BOLUS PRN; Protocol PRN Reason: 80 unit/kg - Heparin Protocol Azithromycin 500 mg/ Sodium (Chloride) 250 mls @ 125 mls/hr IV ONCE ONE Stop: 10/12/21 23:23 Propofol (Diprivan) 1,000 mg in 100 mls @ 0 mls/hr IVCONT .Q0M PHAN; Protocol Last Admin: 10/12/21 22:13 Dose: 30 mcg/kg/min, 12.6 mls/hr Documented by: Nicardipine HCl 25 mg/ Sodium (Chloride) 260 mls @ 0 mls/hr IVCONT .Q0M PHAN; Protocol Heparin Sodium/Sodium Chloride () 25,000 unit in 250 mls @ 0 mls/hr IVCONT .Q0M PHAN; Protocol Piperacillin Sod/Tazobactam (Sod 4.5 gm/ Sodium Chloride) 100 mls @ 200 mls/hr IV Q8H PHAN Vancomycin HCl 750 mg/ Sodium (Chloride) 265 mls @ 265 mls/hr IV Q24H ONE Stop: 10/13/21 00:08 Pharmacy Consult (Consult Rx Perform Med Rec) 1 each MISCELLANE ONCE PRN PRN Reason: Consult order Pharmacy Consult (Consult Rx Vancomycin Dosing) 1 each MISCELLANE DAILY PRN PRN Reason: Consult order Home Medications Medication Instructions Recorded Confirmed Last Taken Type buprenorphine 8 mg-naloxone 2 mg 1 strip SUBLINGUAL BID 10/22/20 10/12/21 10/12/21 History sublingual film (Suboxone) diltiazem HCl 180 mg 360 mg PO DAILY 10/22/20 10/12/21 10/12/21 History capsule,extended release 24 hr olanzapine 10 mg tablet 10 mg PO BEDTIME 02/25/21 10/12/21 10/11/21 History bumetanide 2 mg tablet 2 mg PO DAILY 04/15/21 10/12/21 10/12/21 History fluticasone propionate 110 1 puff INHALATION BID 04/15/21 10/12/21 Unknown History mcg/actuation HFA aerosol inhaler (Flovent HFA) melatonin 5 mg tablet 5 mg PO BEDTIME PRN 04/15/21 10/12/21 Unknown History pantoprazole 40 mg tablet,delayed 40 mg PO DAILY 04/15/21 10/12/21 Unknown History release vitamin B comp no.3-folic acid 1 1 tab PO DAILY 04/15/21 10/12/21 Unknown History mg-vit C 60 mg-biotin 300 mcg tablet ([employer]) sennosides 8.6 mg tablet (senna) 1 - 2 tab PO BEDTIME PRN 05/11/21 10/12/21 Unknown History acetaminophen 500 mg tablet 500 mg PO Q8H PRN 06/10/21 10/12/21 Unknown History sevelamer carbonate 800 mg tablet 800 mg PO BIDWMEAL 06/10/21 10/12/21 10/12/21 History clonidine HCl 0.2 mg tablet 0.2 mg PO BID 07/27/21 10/12/21 10/12/21 History hydralazine 50 mg tablet 1 tab PO TID 07/27/21 10/12/21 10/12/21 History insulin aspart U-100 100 unit/mL 1 sliding scale dose SUBCUT 07/27/21 10/12/21 10/12/21 History subcutaneous cartridge (Novolog USEASDIRECTD PenFill U-100 Insulin aspart) trazodone 100 mg tablet 1 - 2 tab PO BEDTIME PRN 08/08/21 10/12/21 Unknown History insulin glargine 100 unit/mL 7 unit SUBCUT DAILY 09/18/21 10/12/21 10/12/21 History subcutaneous solution (Lantus U-100 Insulin) albuterol sulfate 3 ml INHALATION TID PRN 10/11/21 10/12/21 Unknown History aspirin 81 mg tablet,delayed 1 tab PO DAILY 10/11/21 10/12/21 10/12/21 History release Physical Exam Vital Signs: Vital Signs: Last Vital Signs Temp 98.2 F 10/12/21 17:50 Pulse 86 10/12/21 22:45 Resp 20 10/12/21 22:13 BP 187/81 H 10/12/21 22:45 Pulse Ox 97 10/12/21 22:45 BMI result Body Mass Index 30.1 focussed assesment performed at 2340 Constitutional: Intubated, HEENT:? Head is normocephalic, atraumatic, pupils equal round reactive to light accommodation bilaterally.? Buccal mucosa is dry, Neck is supple without lymphadenopathy. Cardiac?:? Regular rate and rhythm, Normal peripheral perfusion, Normal cap refill. + 1pitting edema BLE.?? Respiratory:? Lungs with rhonchi/crackles throughout. Intubated on AC settings ?? Gastrointestinal:? Soft, Nontender, Non distended, Normal bowel sounds.?? Back:? Nontender, Normal range of motion, Normal alignment.?? Musculoskeletal:? Normal ROM, normal strength, no tenderness, no swelling, no deformity.?? Neurological:?STACY. No focal neurological deficits. Moves all extremities spontaneously and to pain. .?? Lymphatics:? No lymphadenopathy.? Results Labs CBC and Chem 7: 10/12/21 20:03 10/12/21 20:03 Labs: Laboratory Results - last 24 hr 10/12/21 10/12/21 10/12/21 20:03 20:03 20:03 MCV 90.0 MCH 29.1 MCHC 32.3 RDW 14.6 Plt Count 312 MPV 9.8 Immature Gran % (Auto) 0.8 H Neut % (Auto) 91.9 H Lymph % (Auto) 1.9 L [place] % (Auto) 5.3 Eos % (Auto) 0.0 Baso % (Auto) 0.1 Lymph # (Auto) 0.4 L [place] # (Auto) 1.2 Eos # (Auto) 0.0 Baso # (Auto) 0.0 Abs Immat Gran (auto) 0.18 H Absolute Neuts (auto) 21.5 H Absolute Nucleated RBC 0.000 Nucleated RBC % (auto) 0.0 Smear Tech's Comments VERIFIED PT INR VBG pH VBG pCO2 VBG pO2 VBG HCO3 VBG O2 Saturation VBG Base Excess Anion Gap 20 Estim Creat Clear Calc 8.6 Estimated GFR 7 Random Glucose 232 H Calcium 9.5 Magnesium 2.6 Total Bilirubin 0.4 Direct Bilirubin 0.2 AST 41 H D ALT 17 Alkaline Phosphatase 162 H Troponin I High Sens B-Natriuretic Peptide Total Protein 7.8 Albumin 4.0 COVID-19 (KRYSTINA) Negative COVID-19 Clin Com See Note 10/12/21 10/12/21 10/12/21 20:03 20:03 20:07 MCV MCH MCHC RDW Plt Count MPV Immature Gran % (Auto) Neut % (Auto) Lymph % (Auto) [place] % (Auto) Eos % (Auto) Baso % (Auto) Lymph # (Auto) [place] # (Auto) Eos # (Auto) Baso # (Auto) Abs Immat Gran (auto) Absolute Neuts (auto) Absolute Nucleated RBC Nucleated RBC % (auto) Smear Tech's Comments PT 10.5 INR 0.9 VBG pH 7.39 VBG pCO2 38 VBG pO2 152 VBG HCO3 23 VBG O2 Saturation 99.0 VBG Base Excess -0.7 Anion Gap Estim Creat Clear Calc Estimated GFR Random Glucose Calcium Magnesium Total Bilirubin Direct Bilirubin AST ALT Alkaline Phosphatase Troponin I High Sens 787.7 H* D B-Natriuretic Peptide 8105 H Total Protein Albumin COVID-19 (KRYSTINA) COVID-19 Clin Com Imaging Radiologist's Impressions: Impressions Chest X-Ray 10/12/21 18:12 IMPRESSION: Diffuse, patchy bilateral airspace opacities which are new when compared to the chest radiograph dated 10/10/2021. Findings could represent acute pulmonary edema. An infectious or inflammatory process could be considered in the appropriate clinical setting. Chest X-Ray 10/12/21 22:14 IMPRESSION: ET tube in good position 3.6 cm above the sarah. Assessment and Plan (1) Flash pulmonary edema: Status: Acute (2) Acute respiratory failure with hypoxia: Status: Acute (3) Hypertensive emergency: Status: Acute (4) ESRD (end stage renal disease): Status: Acute (5) Leukocytosis: Status: Acute (6) Acute renal failure: Qualifiers: Acute renal failure type: unspecified Qualified Code(s): N17.9 - Acute kidney failure, unspecified Status: Acute (7) Acute exacerbation of CHF (congestive heart failure): Status: Resolved (8) Congestive heart failure: Status: Acute (9) Hyponatremia: Status: Acute (10) Anemia: Status: Acute Plan Plan: Neuro: No acute issues? Cardiac:?? Congestive heart failure exacerbation/ Pulmonary Edema - ? patient is chest x-ray? shows significant? congestion,? BNP elevated 8105 this is likely from flas pulmonary edema.? She received 80? of Lasix in the ED,? but patient is end-stage? renal on dialysis.? Will require dialysis order to improve.? Will consult Renal Services. Echo ordered for morning time? Hypertensive emergency-? due to pulmonary edema, patient was placed on cardene drip in the ED, will wean off when possible? NSTEMI: ? patient with nonspecific T-wave abnormalities? and elevated troponin,? ED physician consulted Cardiology,? who believed likely due to pulmonary edema? but advised for patient to be heparinized. Appreciate cardiology services.? Will repeat troponin and Will continue heparin.?? Pulmonary:?? Acute hypoxic respiratory failure- ? patient was placed on BiPAP upon arrival to the emergency room,? but required emergent intubation? due to significant work of breathing and? and becoming somnolent.? This is all likely? all related to flash pulmonary edema.? Will wean off patient? as tolerated Renal:? ESRD-? she received dialysis yesterday while on admission,? but today creatinine worsened to 5.77? from 3.44.? Patient was likely? required dialysis.? Will consult Nephrology Services Endo:? No acute issues.?? GI:? No acute issues.?? Heme/Onc:? No acute issues. ID:? ? leukocytosis- white count elevated to 23,? patient is on prednisone at home.? But due to acute decompensation? will obtain a lactic acid? and treat empirically with? vanco and Zolakeshia Psych:? No acute issues. Miscellaneous:? No acute issues. Prophylaxis:? IV Heparin,? IV Protonix CODE:? FULL? criticla care time: x 90 min of critical care time Case discussed with attending Dr Casas
[2021-10-12] MEDS: Heparin Sodium,Porcine/1/2NS 25,000 UNIT/250 ML IV.SOLN 9.8 UNIT IVCONT (23:37)
[2021-10-12] MEDS: Heparin Sodium,Porcine 5,000 UNIT/ML VIAL 4000 UNIT IVPUSH (23:48)
--- NOTE | 2021-10-12 23:48 | PC.NURSE ---
heparin hung per md orders without ptt.
[2021-10-13] VITALS (33 sets, daily range): BP systolic 91–189; BP diastolic 48–95; PULSE 57–94; RESP 16–32; TEMP 34.5–37.1; O2SAT 91–100; BMI 28.8; BMI 29.5
--- NOTE | 2021-10-13 00:07 | PC.NURSE ---
RN-RN report given. pt to transfer over to ICU.
--- NOTE | 2021-10-13 00:14 | PC.NURSE ---
2200 Pt given RSI meds for intubation per orders Pt intubated by Dr. Alex 23 at the teeth Pt tolerated well 2230 Central line placed by Dr. Alex Patent and intact 2300 Temp sensing sánchez placed with seating and mobility technologist at bedside Pt tolerated well
[2021-10-13 00:15] LABS: Prothrombin Time 11.1 SEC (9.9-13.0)
[2021-10-13 00:18] LABS: PTT Heparin Drip 81.4 SEC (53-77.9)
[2021-10-13 00:35] LABS: Troponin-I High Sensitivity 709.8 ng/L (<3.5-17.0)
[2021-10-13] MEDS: Midazolam HCl/PF 2 MG/2 ML VIAL 4 MG IVPUSH ×2 (01:05→01:06)
[2021-10-13 01:14] LABS: ABG Base Excess 3.1 mmol/L; ABG HCO3 29 mmol/L (22-26); ABG pCO2 54 mmHg (32-45); ABG pH 7.34 (7.35-7.45); ABG pO2 128 mmHg (83-108)
[2021-10-13] MEDS: vancomycin HCL 1,000 MG in 0.9 % Sodium Chloride 250 ML 270 MG IV (01:15)
[2021-10-13] MEDS: Piperacillin Sodium/Tazobactam 4.5 GM in 0.9 % Sodium Chloride 100 ML IV ×2 (01:15→16:24)
--- NOTE | 2021-10-13 01:16 | PC.NURSE ---
Note addendum: 2300: pt on 30mcg propofol, 5mg nicardipine (bp 198/89), other vss, pt sedate and tolerating intubation. 2315: nicardipine tirated up to 7.5mg per protocol. 2337: heparin drip started at 14u/kg/hr per protocol. started without PTT per MD orders. 2340: pt starting to fight vent, drowsy, propofol titrated up to 35 mcg 2345: pt awake fighting vent, provider bagging pt, respiratory notified, propofol titrated up to 50mcg, 4mg of versed given per verbal MD order by other RN. 2354: pt bp dropping (110/48), propofol decreased to 40mcg 0000: nicardipine titrated down to 5mg per protocol, bp 110/48. labs drawn. 0019: respiratory switching pt over to portable vent to transport to ICU, pt fighting vent, drowsy, propofol titrated up to 50mcg, 4mg of versed given per verbal MD order. pt transported to ICU, tolerated transport well, updated report given to RN regarding med changes.
[2021-10-13 01:23] LABS: ABG Refer to POC result
[2021-10-13] MEDS: propofoL 1,000 MG/100 ML VIAL 21 MG IVCONT ×5 (01:58→21:56)
[2021-10-13 04:23] LABS: Amphetamine Screen Urine Not Detected (Not Detect); Barbiturates, Urine Not Detected (Not Detect); Benzodiazepines Screen Urine Not Detected (Not Detect); Cannabinoid Screen Urine Not Detected (Not Detect); Cocaine Screen Urine Not Detected (Not Detect); Fentanyl, urine Not Detected (Not Detect); Opiate Screen Urine Not Detected (Not Detect); Phencyclidine Screen Urine Not Detected (Not Detect)
--- NOTE | 2021-10-13 04:31 | PC.NURSE ---
Addendum entered by J Luis Servin RN 10/13/21 06:08: PTT-HD 118.5 HEPARIN DRIP HELD PER NOMOGRAM...REPEAT PTT-HD IN 1 HOUR Addendum entered by J Luis Servin RN 10/13/21 05:36: LEFT NARES WITH SANGUINOUS DRAINAGE..ICU SALES AND MARKETING MANAGER ASSESSED PATIENT..AM LABS DRAWN/PENDING Original Note: ADMIT TO 254-1 FROM ER DEPT..REMAINS TUBED/VENTED...VCV/AC+ MODE..AC 18/TV 300/FIO2 WEANED TO 70%/PEEP 8CM....PROPOFOL 50 MCG/KG/MIN...WEAKLY REDDY BUT DOES NOT FOLLOW COMMANDS...NICARDIPINE DRIP 5 MG/HR HELD PER ICU SALES AND MARKETING MANAGER ON ADMIT FOR SBP 110'S....HEPARIN DRIP 14 UNITS/KG/HR (9.8 CCHR)...PTT PREVIOUSLY DRAWN AFTER START OF DRIP PER TERRAZZO JOURNEYMAN....SUCTIONED BLOODY SECRETIONS ORALLY...SALES AND MARKETING MANAGER AWARE....FOR 05:30 LABS PER JUL...RIGHT CHEST DIALYSIS PRESENT..BUENO WITH MINIMAL OUTPUT...5ml EMPTIED 4AM..URINE TOX SCREEN SENT..? ACCURACY OF RESULTS D/T MINIMAL URINE OUTPUT..NSR...ISOLATED PAC'S....VANCOMYCIN AND ZOSYN INFUSED WITHOUT INCIDENT
[2021-10-13 05:29] LABS: VBG Base Excess 3.2 mmol/L; VBG HCO3 29 mmol/L (22-26); VBG pCO2 50 mmHg; VBG pH 7.36 (7.32-7.43); VBG pO2 59 mmHg
[2021-10-13 05:36] LABS: MANUAL DIFF FLAG NO
[2021-10-13 05:38] LABS: Basophils Percent Auto 0.1 % (0-2); Hematocrit 30.9 % (37.0-47.0); Imm Gran Abs Auto 0.11 X10*3/uL (0.00-0.03); Imm Gran Pct Auto 0.6 % (0.0-0.4); Lymphocytes Absolute Auto 0.8 X10*3/uL (1.2-4.9); Lymphocytes Percent Auto 4.4 % (20-40); Mean Corpuscular HGB Conc 32.4 g/dl (31.0-35.0); Mean Corpuscular Hemoglobin 29.3 pg (27.0-33.0); Mean Corpuscular Volume 90.6 fL (80.0-98.0); Mean Platelet Volume 9.5 fL (9.4-12.3); Monocytes Absolute Auto 1.1 X10*3/uL (0.1-1.2); Neutrophils Absolute Auto 15.5 x10*3/uL (2.0-8.3); Neutrophils Percent Auto 88.9 % (45-73); Platelet Count 186 X10*3/uL (160-400); Red Blood Count 3.41 X10*6/uL (4.20-5.50); Red Cell Distribution Width 14.5 % (11.0-16.0); White Blood Count 17.5 X10*3/uL (4.8-10.8)
[2021-10-13] MEDS: Pantoprazole Sodium 40 MG/10 ML VIAL IVPUSH (05:45)
[2021-10-13 05:54] LABS: Venous Blood Gas Refer to POC result
[2021-10-13 06:00] LABS: PTT Heparin Drip 118.5 SEC (53-77.9)
[2021-10-13 06:06] LABS: Troponin-I High Sensitivity 629.2 ng/L (<3.5-17.0)
[2021-10-13 06:18] LABS: B Type Natriuretic Peptide 7788 pg/mL (<100)
[2021-10-13 06:34] LABS: Alanine Aminotransferase 13 U/L (0-31); Albumin Level 2.9 g/dL (3.5-5.0); Alkaline Phosphatase 117 U/L (39-117); Anion Gap 17 (12-20); Aspartate Amino Transferase 32 U/L (5-31); Bilirubin Total 0.3 mg/dL (0.0-1.0); Blood Urea Nitrogen 34 mg/dL (9-16); Calcium 8.2 mg/dL (8.4-10.2); Carbon Dioxide 25 mmol/L (22-29); Chloride 95 mmol/L (96-108); Creatinine Clr Calc Pharmacy 8.2; Estimated Glomerular Filt Rate 7; Glucose Random 179 mg/dL (60-115); Magnesium 2.6 mg/dL (1.6-2.6); Phosphorus 4.3 mg/dL (2.7-4.5); Sodium 133 mmol/L (135-145); Total Protein 5.7 g/dL (6.5-8.0)
--- NOTE | 2021-10-13 07:00 | CA_ITS ---
Transthoracic Echocardiogram Patient (Last, First, Middle): Cruz Muller M Gender: Female Date of : 1955 Age: 66 Procedure Date: 10/13/2021 Procedure Type: Transthoracic Echocardiogram Location: ICU Height: 152.4 cm Weight: 68.49 kg BSA: 1.66 m2 Heart Rate: bpm BP: 130 / 69 mmHg Waste Collection Driver: DANIELLA Referring MD: Mony Tilley NP Symptoms: acute hypoxic respiratory failure/ Congestive he Study Quality: Good Conclusions: - Normal left ventricular size and systolic function. There is moderately increased left ventricular wall thickness. The visually estimated ejection fraction is between 55-60%. - E/E prime ratio is >15, consistent with elevated filling pressures. - Normal right ventricular cavity size and systolic function. Findings Left Ventricle Normal left ventricular size and systolic function. There is moderately increased left ventricular wall thickness. The visually estimated ejection fraction is between 55-60%. There is no evidence of regional wall motion abnormalities. Abnormal diastolic function is noted. Spectral Doppler is indicative of a pseudonormal filling pattern. E/E prime ratio is >15, consistent with elevated filling pressures. Right Ventricle Normal right ventricular cavity size and systolic function. Tricuspid Valve Normal tricuspid valve structure. There is mild tricuspid valve regurgitation. Normal right atrial pressure. There is no evidence of pulmonary hypertension. Venous The inferior vena cava is normal in size and collapses greater than 50% with inspiration. Pericardium/Pleural There is no evidence of pericardial effusion. Prior Study Comparison Changes noted compared to prior study dated: 10/22/2020. LVEF 55-60%, elevated filling pressures. Measurements 2D Linear Measurements IVSd: 1.21 0.6-0.9/0.6-1.0 cm LVIDd: 4.94 3.9-5.3/4.2-5.9 cm LVIDd Index: 2.98 2.4-3.2/2.2-3.1 cm/m2 LVPWd: 1.24 0.7-1.1 cm LV Mass: 294.35 67-162/88-224 g LV Mass Index: 177.32 43-95/49-115 g/m2 2D Systolic Function EF 4C: 53.10 >55% EF 2C: 54.60 >55% EF BiP: 54.50 >55% Mitral Valve MV Pk E: 0.99 MV PK A: 0.91 MV Decel Time: 201.00 E/A: 1.10 E'Lateral: 5.98 E'Medial: 4.68 E/E' Med: 21.20 E/E' Lat: 16.60 PHT: 59.00 MVA PHT: 3.73 Decel [place]: 4.95 Diastolic Function MV Pk E: 0.99 MV Pk A: 0.91 E/A: 1.10 E'Medial: 4.68 E/E' Med: 21.20 E' Laterial: 5.98 E/E' Lat: 16.60 Tricuspid Valve TR Pk [place]: 2.80 TR Pk Grad: 31.00 RVSP: 28.00 Updated in Other Vendor System with Status of Final Charan Hankins MD electronically signed on 10/13/2021 11:24:21 AM with status of Final
--- NOTE | 2021-10-13 08:21 | MHC.CLN ---
IF TF NEEDED; RECOMMEND NEPRO 1.8 AT MAX GOAL RATE 15ML/HR WITH 240CC FREE WATER FLUSH Q 6HRS TO PROVIDE 648KCALS (1202KCALS WITH SEDATION), 29G PROTEIN, [id number] TOTAL WATER FROM FORMULA AND FLUSHES (23.5ML/KG BASED ON CMW) MONITOR TOLERANCE, RESIDUALS AND LYTES FULL CLINICAL NUTRITION ASSESSMENT TO FOLLOW
[2021-10-13] MEDS: Chlorhexidine Gluc Oral Rinse 15 ML MOUTHWASH BUCCAL ×3 (08:43→20:13)
[2021-10-13] MEDS: Albumin Human 25 % 100 ML IV ×3 (08:43→16:31)
[2021-10-13 09:38] LABS: PTT Heparin Drip 32.5 SEC (53-77.9)
--- NOTE | 2021-10-13 10:56 | PC.NURSE ---
SPOKE WITH PHARMACY AND PROVIDER - HEPARIN GTT HAS BEEN OFF SINCE 0600 TODAY FOR BLOOD STREAKED SECRETIONS AND BLOODY RHINORRHEA NOTED. PTT NOW 32.5 - PROVIDER AWARE AND GTT T REMAIN HELD. wILL REASSESS FOLLOWING DIALYSIS.
--- NOTE | 2021-10-13 12:26 | PM.CNCAR ---
History of Present Illness History of Present Illness Date of Service: 10/13/21 Requesting physician: Volodymyr Casas Chief complaint: hypertensive emergency Narrative: 66-year-old female who is presenting with shortness of breath and hypoxia in the setting of elevated blood pressures. She was intubated in the ER. She has end-stage renal disease and has been on hemodialysis. There has been noncompliance with hemodialysis in at appears she missed her last dialysis session also as per discussion with the nurse. She was intubated in the ER because of hypoxia and work of breathing. She had mildly abnormal troponin levels and was started on heparin drip in the ER. Currently happen drip is off because of nosebleed. She continues to be on ventilator. She is currently getting dialyzed and there was a plan to remove approximately 5 L of fluid from her. History otherwise limited as patient is sedated and intubated. [facility] Past Medical History Medical History (Updated 10/13/21 @ 14:10 by Charan Hankins MD) Abdominal pain Anasarca Anemia in chronic kidney disease Ascites Bilateral edema of lower extremity Constipation Diabetes mellitus End stage renal disease on dialysis Essential hypertension Heart failure with preserved ejection fraction HTN (hypertension) Non-compliance Family History Family History Other Hypertension Surgical History Surgical History No pertinent past surgical history Social History Social History Household Members: None Housing: Apartment Do you presently have visiting nurse or other home services: Yes Alcohol intake: unknown Patient Tobacco Use Status: Tobacco use Unknown Tobacco use type: Cigarette Cigarette Packs Per Day: 1 Cigarettes Per Day: 5 Years Smoked: 18 e-Cigarette/Vaping Use: Never Used Second Hand Smoke Exposure: No Use of substances other than those prescribed or required for medical reasons: Unknown Substance Use Type: Heroin Currently Displaying Signs/Symptoms of Drug Intoxication Withdrawal: No Advance Directives: Yes Advance Directives Information Provided: No Advance Directives on File: No Advance Directives Date on File: 04/20/21 service: No Current occupational status: unemployed and disabled Meds Allergies Allergy/AdvReac Type Severity Reaction Status Date / Time No Known Allergies Allergy Mild NOT Verified 10/10/21 20:00 APPLICABLE Active Medications: Current Medications Chlorhexidine Gluconate (Chlorhexidine Gluc Oral Rinse 15 Ml Mouthwash) 15 ml BUCCAL TID [facility] Last Admin: 10/13/21 08:43 Dose: 15 ml Documented by: Heparin Sodium (Porcine) (Heparin Sodium,Porcine 5,000 Unit/Ml Vial) 2,800 unit 40 unit/kg (2800 unit) IVPUSH PROTOCOL BOLUS PRN; Protocol PRN Reason: 40 unit/kg - Heparin Protocol Heparin Sodium (Porcine) (Heparin Sodium,Porcine 5,000 Unit/Ml Vial) 5,600 unit 80 unit/kg (5600 unit) IVPUSH PROTOCOL BOLUS PRN; Protocol PRN Reason: 80 unit/kg - Heparin Protocol Propofol (Diprivan) 1,000 mg in 100 mls @ 0 mls/hr IVCONT .Q0M [facility]; Protocol Last Admin: 10/13/21 10:32 Dose: 50 mcg/kg/min, 21 mls/hr Documented by: Nicardipine HCl 25 mg/ Sodium (Chloride) 260 mls @ 0 mls/hr IVCONT .Q0M [facility]; Protocol Last Titration: 10/13/21 01:04 Dose: 0 mg/hr, 0 mls/hr Documented by: Heparin Sodium/Sodium Chloride () 25,000 unit in 250 mls @ 0 mls/hr IVCONT .Q0M [facility]; Protocol Last Titration: 10/13/21 06:03 Dose: 0 units/kg/hr, 0 mls/hr Documented by: Piperacillin Sod/Tazobactam (Sod 4.5 gm/ Sodium Chloride) 100 mls @ 200 mls/hr IV Q12H [facility] Last Infusion: 10/13/21 02:15 Dose: Infused Documented by: Pantoprazole Sodium (Pantoprazole Sodium 40 Mg/10 Ml Vial) 40 mg IVPUSH DAILY@0630 [facility] Last Admin: 10/13/21 05:45 Dose: 40 mg Documented by: Pharmacy Consult (Consult Rx Perform Med Rec) 1 each MISCELLANE ONCE PRN PRN Reason: Consult order Home Medications Medication Instructions Recorded Confirmed Last Taken Type buprenorphine 8 mg-naloxone 2 mg 1 strip SUBLINGUAL BID 10/22/20 10/12/21 10/12/21 History sublingual film (Suboxone) diltiazem HCl 180 mg 360 mg PO DAILY 0610/12/21 10/12/21 History capsule,extended release 24 hr olanzapine 10 mg tablet 10 mg PO BEDTIME 02/25/21 10/12/21 10/11/21 History bumetanide 2 mg tablet 2 mg PO DAILY 04/15/21 10/12/21 10/12/21 History fluticasone propionate 110 1 puff INHALATION BID 04/15/21 10/12/21 Unknown History mcg/actuation HFA aerosol inhaler (Flovent HFA) melatonin 5 mg tablet 5 mg PO BEDTIME PRN 04/15/21 10/12/21 Unknown History pantoprazole 40 mg tablet,delayed 40 mg PO DAILY 04/15/21 10/12/21 Unknown History release vitamin B comp no.3-folic acid 1 1 tab PO DAILY 04/15/21 10/12/21 Unknown History mg-vit C 60 mg-biotin 300 mcg tablet ([facility]) sennosides 8.6 mg tablet (senna) 1 - 2 tab PO BEDTIME PRN 05/11/21 10/12/21 Unknown History acetaminophen 500 mg tablet 500 mg PO Q8H PRN 06/10/21 10/12/21 Unknown History sevelamer carbonate 800 mg tablet 800 mg PO BIDWMEAL 06/10/21 10/12/21 10/12/21 History clonidine HCl 0.2 mg tablet 0.2 mg PO BID 07/27/21 10/12/21 10/12/21 History hydralazine 50 mg tablet 1 tab PO TID 07/27/21 10/12/21 10/12/21 History insulin aspart U-100 100 unit/mL 1 sliding scale dose SUBCUT 07/27/21 10/12/21 10/12/21 History subcutaneous cartridge (Novolog USEASDIRECTD PenFill U-100 Insulin aspart) trazodone 100 mg tablet 1 - 2 tab PO BEDTIME PRN 08/08/21 10/12/21 Unknown History insulin glargine 100 unit/mL 7 unit SUBCUT DAILY 09/18/21 10/12/21 10/12/21 History subcutaneous solution (Lantus U-100 Insulin) albuterol sulfate 3 ml INHALATION TID PRN 10/11/21 10/12/21 Unknown History aspirin 81 mg tablet,delayed 1 tab PO DAILY 10/11/21 10/12/21 10/12/21 History release Physical Exam Vital Signs: Vital Signs: Last Vital Signs Temp 96.8 F 10/13/21 12:00 Pulse 61 10/13/21 12:00 Resp 16 10/13/21 12:00 BP 147/79 H 10/13/21 12:00 Pulse Ox 96 10/13/21 12:00 BMI result Body Mass Index 29.5 GENERAL APPEARANCE: Sedated intubated. Using accessory muscles. NECK: no carotid bruit, + jugular venous distention. SKIN: no suspicious lesions, warm and dry. HEART: no murmurs, regular rate and rhythm. LUNGS: Bilateral expiratory wheezes. ABDOMEN: soft. EXTREMITIES: no edema. PERIPHERAL PULSES: equal. NEUROLOGIC: No gross deficits, AAO X 3 Objective Labs and Meds Result diagrams: 10/13/21 05:13 10/13/21 05:13 Lab results: Laboratory Results - last 24 hr 10/12/21 10/12/21 10/12/21 20:03 20:03 20:03 WBC 23.4 H RBC 4.02 L Hgb 11.7 L Hct 36.2 L MCV 90.0 MCH 29.1 MCHC 32.3 RDW 14.6 Plt Count 312 MPV 9.8 Immature Gran % (Auto) 0.8 H Neut % (Auto) 91.9 H Lymph % (Auto) 1.9 L [place] % (Auto) 5.3 Eos % (Auto) 0.0 Baso % (Auto) 0.1 Lymph # (Auto) 0.4 L [place] # (Auto) 1.2 Eos # (Auto) 0.0 Baso # (Auto) 0.0 Abs Immat Gran (auto) 0.18 H Absolute Neuts (auto) 21.5 H Absolute Nucleated RBC 0.000 Nucleated RBC % (auto) 0.0 Smear Tech's Comments VERIFIED PT INR aPTT Heparin Protocol O2 Saturation ABG pH at Pt Temp ABG pCO2 at Pt Temp ABG pO2 at Pt Temp ABG HCO3 ABG Base Excess (Actual) VBG pH VBG pCO2 VBG pO2 VBG HCO3 VBG O2 Saturation VBG Base Excess Sodium 133 L Potassium 4.4 Chloride 92 L Carbon Dioxide 25 Anion Gap 20 BUN 30 H D Creatinine 5.70 H* Estim Creat Clear Calc 8.6 Estimated GFR 7 Random Glucose 232 H Lactic Acid Calcium 9.5 Phosphorus Magnesium 2.6 Total Bilirubin 0.4 Direct Bilirubin 0.2 AST 41 H D ALT 17 Alkaline Phosphatase 162 H Troponin I High Sens B-Natriuretic Peptide Total Protein 7.8 Albumin 4.0 Urine Opiates Screen Urine Fentanyl Screen Ur Barbiturates Screen Ur Phencyclidine Scrn Ur Amphetamines Screen U Benzodiazepines Scrn Urine Cocaine Screen U Marijuana (THC) Screen COVID-19 ([facility]YSTINA) Negative COVID-19 Clin Com See Note 10/12/21 10/12/21 10/12/21 20:03 20:03 20:07 WBC RBC Hgb Hct MCV MCH MCHC RDW Plt Count MPV Immature Gran % (Auto) Neut % (Auto) Lymph % (Auto) [place] % (Auto) Eos % (Auto) Baso % (Auto) Lymph # (Auto) [place] # (Auto) Eos # (Auto) Baso # (Auto) Abs Immat Gran (auto) Absolute Neuts (auto) Absolute Nucleated RBC Nucleated RBC % (auto) Smear Tech's Comments PT 10.5 INR 0.9 aPTT Heparin Protocol O2 Saturation ABG pH at Pt Temp ABG pCO2 at Pt Temp ABG pO2 at Pt Temp ABG HCO3 ABG Base Excess (Actual) VBG pH 7.39 VBG pCO2 38 VBG pO2 152 VBG HCO3 23 VBG O2 Saturation 99.0 VBG Base Excess -0.7 Sodium Potassium Chloride Carbon Dioxide Anion Gap BUN Creatinine Estim Creat Clear Calc Estimated GFR Random Glucose Lactic Acid Calcium Phosphorus Magnesium Total Bilirubin Direct Bilirubin AST ALT Alkaline Phosphatase Troponin I High Sens 787.7 H* D B-Natriuretic Peptide 8105 H Total Protein Albumin Urine Opiates Screen Urine Fentanyl Screen Ur Barbiturates Screen Ur Phencyclidine Scrn Ur Amphetamines Screen U Benzodiazepines Scrn Urine Cocaine Screen U Marijuana (THC) Screen COVID-19 ([facility]YSTINA) COVID-19 Clin Com 10/13/21 10/13/21 10/13/21 00:00 00:00 00:00 WBC RBC Hgb Hct MCV MCH MCHC RDW Plt Count MPV Immature Gran % (Auto) Neut % (Auto) Lymph % (Auto) [place] % (Auto) Eos % (Auto) Baso % (Auto) Lymph # (Auto) [place] # (Auto) Eos # (Auto) Baso # (Auto) Abs Immat Gran (auto) Absolute Neuts (auto) Absolute Nucleated RBC Nucleated RBC % (auto) Smear Tech's Comments PT 11.1 INR 1.0 aPTT Heparin Protocol 81.4 H O2 Saturation ABG pH at Pt Temp ABG pCO2 at Pt Temp ABG pO2 at Pt Temp ABG HCO3 ABG Base Excess (Actual) VBG pH VBG pCO2 VBG pO2 VBG HCO3 VBG O2 Saturation VBG Base Excess Sodium Potassium Chloride Carbon Dioxide Anion Gap BUN Creatinine Estim Creat Clear Calc Estimated GFR Random Glucose Lactic Acid 1.0 Calcium Phosphorus Magnesium Total Bilirubin Direct Bilirubin AST ALT Alkaline Phosphatase Troponin I High Sens 709.8 H* B-Natriuretic Peptide Total Protein Albumin Urine Opiates Screen Urine Fentanyl Screen Ur Barbiturates Screen Ur Phencyclidine Scrn Ur Amphetamines Screen U Benzodiazepines Scrn Urine Cocaine Screen U Marijuana (THC) Screen COVID-19 (KRYSTINA) [employer] 10/13/21 10/13/21 10/13/21 01:05 03:26 05:13 WBC RBC Hgb Hct MCV MCH MCHC RDW Plt Count MPV Immature Gran % (Auto) Neut % (Auto) Lymph % (Auto) [place] % (Auto) Eos % (Auto) Baso % (Auto) Lymph # (Auto) [place] # (Auto) Eos # (Auto) Baso # (Auto) Abs Immat Gran (auto) Absolute Neuts (auto) Absolute Nucleated RBC Nucleated RBC % (auto) Smear Tech's Comments PT INR aPTT Heparin Protocol 118.5 H* D O2 Saturation 98.0 ABG pH at Pt Temp 7.34 L ABG pCO2 at Pt Temp 54 H ABG pO2 at Pt Temp 128 H ABG HCO3 29 H ABG Base Excess (Actual) 3.1 VBG pH VBG pCO2 VBG pO2 VBG HCO3 VBG O2 Saturation VBG Base Excess Sodium Potassium Chloride Carbon Dioxide Anion Gap BUN Creatinine Estim Creat Clear Calc Estimated GFR Random Glucose Lactic Acid Calcium Phosphorus Magnesium Total Bilirubin Direct Bilirubin AST ALT Alkaline Phosphatase Troponin I High Sens B-Natriuretic Peptide Total Protein Albumin Urine Opiates Screen Not Detected Urine Fentanyl Screen Not Detected Ur Barbiturates Screen Not Detected Ur Phencyclidine Scrn Not Detected Ur Amphetamines Screen Not Detected U Benzodiazepines Scrn Not Detected Urine Cocaine Screen Not Detected U Marijuana (THC) Screen Not Detected COVID-19 ([facility]) [facility] 10/13/21 05:13 05:13 05:13 WBC 17.5 H RBC 3.41 L Hgb 10.0 L Hct 30.9 L MCV 90.6 MCH 29.3 MCHC 32.4 RDW 14.5 Plt Count 186 D MPV 9.5 Immature Gran % (Auto) 0.6 H Neut % (Auto) 88.9 H Lymph % (Auto) 4.4 L [place] % (Auto) 6.0 Eos % (Auto) 0.0 Baso % (Auto) 0.1 Lymph # (Auto) 0.8 L [place] # (Auto) 1.1 Eos # (Auto) 0.0 Baso # (Auto) 0.0 Abs Immat Gran (auto) 0.11 H Absolute Neuts (auto) 15.5 H Absolute Nucleated RBC 0.000 Nucleated RBC % (auto) 0.0 Smear Tech's Comments PT INR aPTT Heparin Protocol O2 Saturation ABG pH at Pt Temp ABG pCO2 at Pt Temp ABG pO2 at Pt Temp ABG HCO3 ABG Base Excess (Actual) VBG pH VBG pCO2 VBG pO2 VBG HCO3 VBG O2 Saturation VBG Base Excess Sodium 133 L Potassium 4.0 Chloride 95 L Carbon Dioxide 25 Anion Gap 17 BUN 34 H Creatinine 5.93 H* Estim Creat Clear Calc 8.2 Estimated GFR 7 Random Glucose 179 H Lactic Acid Calcium 8.2 L D Phosphorus 4.3 Magnesium 2.6 Total Bilirubin 0.3 Direct Bilirubin AST 32 H ALT 13 Alkaline Phosphatase 117 D Troponin I High Sens B-Natriuretic Peptide 7788 H Total Protein 5.7 L D Albumin 2.9 L D Urine Opiates Screen Urine Fentanyl Screen Ur Barbiturates Screen Ur Phencyclidine Scrn Ur Amphetamines Screen U Benzodiazepines Scrn Urine Cocaine Screen U Marijuana (THC) Screen COVID-19 ([facility]INA) COVID-19 Clin Com 10/13/21 10/13/21 10/13/21 05:19 05:20 09:14 WBC RBC Hgb Hct MCV MCH MCHC RDW Plt Count MPV Immature Gran % (Auto) Neut % (Auto) Lymph % (Auto) [place] % (Auto) Eos % (Auto) Baso % (Auto) Lymph # (Auto) [place] # (Auto) Eos # (Auto) Baso # (Auto) Abs Immat Gran (auto) Absolute Neuts (auto) Absolute Nucleated RBC Nucleated RBC % (auto) Smear Tech's Comments PT INR aPTT Heparin Protocol 32.5 L D O2 Saturation ABG pH at Pt Temp ABG pCO2 at Pt Temp ABG pO2 at Pt Temp ABG HCO3 ABG Base Excess (Actual) VBG pH 7.36 VBG pCO2 50 VBG pO2 59 VBG HCO3 29 H VBG O2 Saturation 85.0 VBG Base Excess 3.2 Sodium Potassium Chloride Carbon Dioxide Anion Gap BUN Creatinine Estim Creat Clear Calc Estimated GFR Random Glucose Lactic Acid Calcium Phosphorus Magnesium Total Bilirubin Direct Bilirubin AST ALT Alkaline Phosphatase Troponin I High Sens 629.2 H* B-Natriuretic Peptide Total Protein Albumin Urine Opiates Screen Urine Fentanyl Screen Ur Barbiturates Screen Ur Phencyclidine Scrn Ur Amphetamines Screen U Benzodiazepines Scrn Urine Cocaine Screen U Marijuana (THC) Screen COVID-19 ([facility]YSTINA) COVID-19 Clin Com Imaging Radiologist's impression: Impressions Chest X-Ray 10/12/21 18:12 IMPRESSION: Diffuse, patchy bilateral airspace opacities which are new when compared to the chest radiograph dated 10/10/2021. Findings could represent acute pulmonary edema. An infectious or inflammatory process could be considered in the appropriate clinical setting. Chest X-Ray 10/12/21 22:14 IMPRESSION: ET tube in good position 3.6 cm above the sarah. Chest X-Ray 10/12/21 23:28 IMPRESSION: Newly placed right IJ central venous catheter in good position without complications. Assessment and Plan (1) Acute respiratory failure with hypoxia: Status: Acute (2) Hypertensive emergency: Status: Acute (3) NSTEMI (non-ST elevated myocardial infarction): Status: Acute Plan 66-year-old female here for hypertensive emergency and pulmonary edema. High sensitivity troponin levels are mildly elevated but the trend is flat. I think this is not acute coronary syndrome. Happen can be stopped. She is getting hemodialysis to improve the volume status. She missed dialysis. She is going to have 5 L removed today. I think her home medications need to be resumed specially the clonidine because she can withdraw from clonidine which can not give a very similar picture as she has right now with significantly elevated blood pressures. If extubation is not soon then I think she should have nasogastric or orogastric tube and get her home medications. Echocardiography has not shown any wall motion abnormalities and I think this presentation is hypertensive emergency and she is unlikely to have acute coronary syndrome. Thank you for allowing me to participate in the care of your patient. Please feel free to contact me if you have any questions. Procedures Date of Service Date of Service: 10/13/21
--- NOTE | 2021-10-13 13:02 | P.PNCC_ITS ---
Subjective Subjective Date of Service: 10/13/21 Interval History: 66-year-old lady with underlying history of ESRD hemodialysis, congestive heart failure, diabetes mellitus, hypertension, poor compliance with medical treatments readmitted on 10/12/2021 with worsening shortness of breath secondary to pulmonary edema from poor compliance with dialysis treatments. Patient was initially trialed on BiPAP, however she further deteriorated and required intubation with ventilatory support. Patient was transferred to intensive care unit. She was started on heparin drip for what appears to be demand ischemia/NSTEMI. Overnight with nasal bleeding. Left nostril packed. Critical Care Time (minutes): 45 Physical Exam Vital Signs: Vital Signs: Last Vital Signs Temp 96.8 F 10/13/21 12:00 Pulse 61 10/13/21 12:00 Resp 16 10/13/21 12:00 BP 147/79 H 10/13/21 12:00 Pulse Ox 96 10/13/21 12:00 BMI result Body Mass Index 29.5 Const: General: no acute distress and other ( Sedated on the vent) Eyes: Sclerae: sclerae normal EOM: EOMs intact bilaterally Neck: Neck: Yes no lymphadenopathy, Yes trachea midline and Yes supple Resp: Auscultation: crackles ( diffuse bilateral) Cardio: Rate: regular rate Rhythm: regular rhythm Heart sounds: no gallops, no murmurs and no rubs GI: Palpation (GI): Soft to palpation and Other GI palpation findings present ( Nontender) Auscultation: normal bowel sounds Extrem: General: No clubbing, No cyanosis and Yes edema ( 1+ bilateral) Objective Data Labs CBC & Chem 7: 10/13/21 05:13 10/13/21 05:13 Labs: Laboratory Results - last 24 hr 10/12/21 10/12/21 10/12/21 20:03 20:03 20:03 WBC 23.4 H RBC 4.02 L Hgb 11.7 L Hct 36.2 L MCV 90.0 MCH 29.1 MCHC 32.3 RDW 14.6 Plt Count 312 MPV 9.8 Immature Gran % (Auto) 0.8 H Neut % (Auto) 91.9 H Lymph % (Auto) 1.9 L [place] % (Auto) 5.3 Eos % (Auto) 0.0 Baso % (Auto) 0.1 Lymph # (Auto) 0.4 L [place] # (Auto) 1.2 Eos # (Auto) 0.0 Baso # (Auto) 0.0 Abs Immat Gran (auto) 0.18 H Absolute Neuts (auto) 21.5 H Absolute Nucleated RBC 0.000 Nucleated RBC % (auto) 0.0 Smear Tech's Comments VERIFIED PT INR aPTT Heparin Protocol O2 Saturation ABG pH at Pt Temp ABG pCO2 at Pt Temp ABG pO2 at Pt Temp ABG HCO3 ABG Base Excess (Actual) VBG pH VBG pCO2 VBG pO2 VBG HCO3 VBG O2 Saturation VBG Base Excess Sodium 133 L Potassium 4.4 Chloride 92 L Carbon Dioxide 25 Anion Gap 20 BUN 30 H D Creatinine 5.70 H* Estim Creat Clear Calc 8.6 Estimated GFR 7 Random Glucose 232 H Lactic Acid Calcium 9.5 Phosphorus Magnesium 2.6 Total Bilirubin 0.4 Direct Bilirubin 0.2 AST 41 H D ALT 17 Alkaline Phosphatase 162 H Troponin I High Sens B-Natriuretic Peptide Total Protein 7.8 Albumin 4.0 Urine Opiates Screen Urine Fentanyl Screen Ur Barbiturates Screen Ur Phencyclidine Scrn Ur Amphetamines Screen U Benzodiazepines Scrn Urine Cocaine Screen U Marijuana (THC) Screen COVID-19 (KRYSTINA) Negative COVID-19 Clin Com See Note 10/12/21 10/12/21 10/12/21 20:03 20:03 20:07 WBC RBC Hgb Hct MCV MCH MCHC RDW Plt Count MPV Immature Gran % (Auto) Neut % (Auto) Lymph % (Auto) Glenn % (Auto) Eos % (Auto) Baso % (Auto) Lymph # (Auto) [place] # (Auto) Eos # (Auto) Baso # (Auto) Abs Immat Gran (auto) Absolute Neuts (auto) Absolute Nucleated RBC Nucleated RBC % (auto) Smear Tech's Comments PT 10.5 INR 0.9 aPTT Heparin Protocol O2 Saturation ABG pH at Pt Temp ABG pCO2 at Pt Temp ABG pO2 at Pt Temp ABG HCO3 ABG Base Excess (Actual) VBG pH 7.39 VBG pCO2 38 VBG pO2 152 VBG HCO3 23 VBG O2 Saturation 99.0 VBG Base Excess -0.7 Sodium Potassium Chloride Carbon Dioxide Anion Gap BUN Creatinine Estim Creat Clear Calc Estimated GFR Random Glucose Lactic Acid Calcium Phosphorus Magnesium Total Bilirubin Direct Bilirubin AST ALT Alkaline Phosphatase Troponin I High Sens 787.7 H* D B-Natriuretic Peptide 8105 H Total Protein Albumin Urine Opiates Screen Urine Fentanyl Screen Ur Barbiturates Screen Ur Phencyclidine Scrn Ur Amphetamines Screen U Benzodiazepines Scrn Urine Cocaine Screen U Marijuana (THC) Screen COVID-19 (KRYSTINA) COVID-19 Funium 10/13/21 10/13/21 10/13/21 00:00 00:00 00:00 WBC RBC Hgb Hct MCV MCH MCHC RDW Plt Count MPV Immature Gran % (Auto) Neut % (Auto) Lymph % (Auto) Glenn % (Auto) Eos % (Auto) Baso % (Auto) Lymph # (Auto) [place] # (Auto) Eos # (Auto) Baso # (Auto) Abs Immat Gran (auto) Absolute Neuts (auto) Absolute Nucleated RBC Nucleated RBC % (auto) Smear Tech's Comments PT 11.1 INR 1.0 aPTT Heparin Protocol 81.4 H O2 Saturation ABG pH at Pt Temp ABG pCO2 at Pt Temp ABG pO2 at Pt Temp ABG HCO3 ABG Base Excess (Actual) VBG pH VBG pCO2 VBG pO2 VBG HCO3 VBG O2 Saturation VBG Base Excess Sodium Potassium Chloride Carbon Dioxide Anion Gap BUN Creatinine Estim Creat Clear Calc Estimated GFR Random Glucose Lactic Acid 1.0 Calcium Phosphorus Magnesium Total Bilirubin Direct Bilirubin AST ALT Alkaline Phosphatase Troponin I High Sens 709.8 H* B-Natriuretic Peptide Total Protein Albumin Urine Opiates Screen Urine Fentanyl Screen Ur Barbiturates Screen Ur Phencyclidine Scrn Ur Amphetamines Screen U Benzodiazepines Scrn Urine Cocaine Screen U Marijuana (THC) Screen COVID-19 (KRYSTINA) COVID-19 Funium 10/13/21 10/13/21 10/13/21 01:05 03:26 05:13 WBC RBC Hgb Hct MCV MCH MCHC RDW Plt Count MPV Immature Gran % (Auto) Neut % (Auto) Lymph % (Auto) [place] % (Auto) Eos % (Auto) Baso % (Auto) Lymph # (Auto) [place] # (Auto) Eos # (Auto) Baso # (Auto) Abs Immat Gran (auto) Absolute Neuts (auto) Absolute Nucleated RBC Nucleated RBC % (auto) Smear Tech's Comments PT INR aPTT Heparin Protocol 118.5 H* D O2 Saturation 98.0 ABG pH at Pt Temp 7.34 L ABG pCO2 at Pt Temp 54 H ABG pO2 at Pt Temp 128 H ABG HCO3 29 H ABG Base Excess (Actual) 3.1 VBG pH VBG pCO2 VBG pO2 VBG HCO3 VBG O2 Saturation VBG Base Excess Sodium Potassium Chloride Carbon Dioxide Anion Gap BUN Creatinine Estim Creat Clear Calc Estimated GFR Random Glucose Lactic Acid Calcium Phosphorus Magnesium Total Bilirubin Direct Bilirubin AST ALT Alkaline Phosphatase Troponin I High Sens B-Natriuretic Peptide Total Protein Albumin Urine Opiates Screen Not Detected Urine Fentanyl Screen Not Detected Ur Barbiturates Screen Not Detected Ur Phencyclidine Scrn Not Detected Ur Amphetamines Screen Not Detected U Benzodiazepines Scrn Not Detected Urine Cocaine Screen Not Detected U Marijuana (THC) Screen Not Detected COVID-19 (KRYSTINA) COVID-19 Clin Com 10/13/21 10/13/21 10/13/21 05:13 05:13 05:13 WBC 17.5 H RBC 3.41 L Hgb 10.0 L Hct 30.9 L MCV 90.6 MCH 29.3 MCHC 32.4 RDW 14.5 Plt Count 186 D MPV 9.5 Immature Gran % (Auto) 0.6 H Neut % (Auto) 88.9 H Lymph % (Auto) 4.4 L [place] % (Auto) 6.0 Eos % (Auto) 0.0 Baso % (Auto) 0.1 Lymph # (Auto) 0.8 L [place] # (Auto) 1.1 Eos # (Auto) 0.0 Baso # (Auto) 0.0 Abs Immat Gran (auto) 0.11 H Absolute Neuts (auto) 15.5 H Absolute Nucleated RBC 0.000 Nucleated RBC % (auto) 0.0 Smear Tech's Comments PT INR aPTT Heparin Protocol O2 Saturation ABG pH at Pt Temp ABG pCO2 at Pt Temp ABG pO2 at Pt Temp ABG HCO3 ABG Base Excess (Actual) VBG pH VBG pCO2 VBG pO2 VBG HCO3 VBG O2 Saturation VBG Base Excess Sodium 133 L Potassium 4.0 Chloride 95 L Carbon Dioxide 25 Anion Gap 17 BUN 34 H Creatinine 5.93 H* Estim Creat Clear Calc 8.2 Estimated GFR 7 Random Glucose 179 H Lactic Acid Calcium 8.2 L D Phosphorus 4.3 Magnesium 2.6 Total Bilirubin 0.3 Direct Bilirubin AST 32 H ALT 13 Alkaline Phosphatase 117 D Troponin I High Sens B-Natriuretic Peptide 7788 H Total Protein 5.7 L D Albumin 2.9 L D Urine Opiates Screen Urine Fentanyl Screen Ur Barbiturates Screen Ur Phencyclidine Scrn Ur Amphetamines Screen U Benzodiazepines Scrn Urine Cocaine Screen U Marijuana (THC) Screen COVID-19 (KRYSTINA) COVID-19 Funium 10/13/21 10/13/21 10/13/21 05:19 05:20 09:14 WBC RBC Hgb Hct MCV MCH MCHC RDW Plt Count MPV Immature Gran % (Auto) Neut % (Auto) Lymph % (Auto) [place] % (Auto) Eos % (Auto) Baso % (Auto) Lymph # (Auto) [place] # (Auto) Eos # (Auto) Baso # (Auto) Abs Immat Gran (auto) Absolute Neuts (auto) Absolute Nucleated RBC Nucleated RBC % (auto) Smear Tech's Comments PT INR aPTT Heparin Protocol 32.5 L D O2 Saturation ABG pH at Pt Temp ABG pCO2 at Pt Temp ABG pO2 at Pt Temp ABG HCO3 ABG Base Excess (Actual) VBG pH 7.36 VBG pCO2 50 VBG pO2 59 VBG HCO3 29 H VBG O2 Saturation 85.0 VBG Base Excess 3.2 Sodium Potassium Chloride Carbon Dioxide Anion Gap BUN Creatinine Estim Creat Clear Calc Estimated GFR Random Glucose Lactic Acid Calcium Phosphorus Magnesium Total Bilirubin Direct Bilirubin AST ALT Alkaline Phosphatase Troponin I High Sens 629.2 H* B-Natriuretic Peptide Total Protein Albumin Urine Opiates Screen Urine Fentanyl Screen Ur Barbiturates Screen Ur Phencyclidine Scrn Ur Amphetamines Screen U Benzodiazepines Scrn Urine Cocaine Screen U Marijuana (THC) Screen COVID-19 (KRYSTINA) COVID-19 Clin Com Microbiology Microbiology Results: Microbiology 10/12/21 23:51 Blood - Central Line Blood Culture - Final 10/12/21 23:51 Blood - Central Line Blood Culture - Final Progress Note: A&P Assessment and plan (1) Acute respiratory failure with hypoxia: Status: Acute (2) Flash pulmonary edema: Status: Acute (3) Hypertensive emergency: Status: Acute (4) Congestive heart failure: Status: Acute (5) Dialysis patient, noncompliant: Status: Acute Plan Assessment: 66-year-old lady poorly compliant with hemodialysis treatment admitted with flash pulmonary edema resulting in acute hypoxic respiratory failure requiring ventilatory support. Plan: Neuro: No acute issues. Cardiac: Acute exacerbation of underlying chronic diastolic congestive heart failure with flash pulmonary edema. Expect to improve with ultrafiltration. Demand ischemia versus NSTEMI. Cardiology service care appreciated. Started on heparin drip. Pulmonary: Acute hypoxic respiratory failure requiring ventilatory support. Continue to titrate off as tolerated. Renal: End-stage renal disease with patient poorly compliant with hemodialysis. Nephrology service care appreciated. Continue with hemodialysis. Endo: No acute issues. Underlying diabetes mellitus. GI: No acute issues. ID: No acute issues Heme/Onc: No acute issues. Psych: No acute issues. Miscellaneous: No acute issues. Prophylaxis: Heparin drip Diet: NPO Critical care time spent: 45 minutes Quality Stroke Does the patient have a stroke diagnosis?: No VTE Prior VTE?: No VTE Risk Level:: Medical - moderate - high VTE Device Contraindication: Treatment Not Indicated VTE Drug Contraindication: N/A - Med Ordered
--- NOTE | 2021-10-13 13:54 | MHC.CM.PN ---
This television writer spoke with hair Spaulding over the phone with assistance of Faroese speaking staff member. Reviewed IMM. Daughter reports @ discharge patient would prefer to go home versus STR. If going home Chelly can transport. Patient lives in apartment with her son Jessi (contact info on file). HCP on file and verified. Patient is currently in ICU, Case Management will follow for discahrge planning needs.
--- NOTE | 2021-10-13 14:36 | ECG_ITS ---
Test Reason : st montior Blood Pressure : / mmHG Vent. Rate : 061 BPM Atrial Rate : 061 BPM P-R Int : 150 ms QRS Dur : 086 ms QT Int : 562 ms P-R-T Axes : 066 015 242 degrees QTc Int : 565 ms Normal sinus rhythm Right atrial enlargement Minimal voltage criteria for LVH, may be normal variant ( Sokolow-Burton ) ST & Marked T wave abnormality, consider anterolateral ischemia Prolonged QT Abnormal ECG When compared with ECG of 12-OCT-2021 21:42, Vent. rate has decreased BY 47 BPM T wave inversion now evident in Inferior leads T wave inversion now evident in Anterior leads QT has lengthened Referred By: Franck James Electronically Signed By:Charan Hankins
[2021-10-13] MEDS: propofoL 1,000 MG/100 ML VIAL 16.8 MG IVCONT (14:37)
--- NOTE | 2021-10-13 15:42 | PM.PNNEP ---
Subjective Subjective Date of Service: 10/13/21 Interval history: Chart REviewed. Events noted. Physical Exam Vital Signs: Vital Signs: Last Vital Signs Temp 96.8 F 10/13/21 12:00 Pulse 63 10/13/21 15:00 Resp 17 10/13/21 15:00 BP 102/62 10/13/21 15:00 Pulse Ox 96 10/13/21 15:00 BMI result Body Mass Index 29.5 HEENT: Head: Yes normocephalic Neck: Neck: Yes no JVD Resp: Auscultation: clear to auscultation bilaterally Cardio: Jugular venous distension: no JVD Rate: regular rate Rhythm: regular rhythm Heart sounds: S1 normal heart sound present and S2 normal heart sound present GI: Percussion: Yes normal to percussion Auscultation: normal bowel sounds Neuro: General: tone normal Extrem: General: Yes no clubbing, cyanosis or edema Objective Data Labs CBC & Chem 7: 10/13/21 05:13 10/13/21 05:13 Labs: Laboratory Results - last 24 hr 10/12/21 10/12/21 10/12/21 20:03 20:03 20:03 WBC 23.4 H RBC 4.02 L Hgb 11.7 L Hct 36.2 L MCV 90.0 MCH 29.1 MCHC 32.3 RDW 14.6 Plt Count 312 MPV 9.8 Immature Gran % (Auto) 0.8 H Neut % (Auto) 91.9 H Lymph % (Auto) 1.9 L [place] % (Auto) 5.3 Eos % (Auto) 0.0 Baso % (Auto) 0.1 Lymph # (Auto) 0.4 L [place] # (Auto) 1.2 Eos # (Auto) 0.0 Baso # (Auto) 0.0 Abs Immat Gran (auto) 0.18 H Absolute Neuts (auto) 21.5 H Absolute Nucleated RBC 0.000 Nucleated RBC % (auto) 0.0 Smear Tech's Comments VERIFIED PT INR aPTT Heparin Protocol O2 Saturation ABG pH at Pt Temp ABG pCO2 at Pt Temp ABG pO2 at Pt Temp ABG HCO3 ABG Base Excess (Actual) VBG pH VBG pCO2 VBG pO2 VBG HCO3 VBG O2 Saturation VBG Base Excess Sodium 133 L Potassium 4.4 Chloride 92 L Carbon Dioxide 25 Anion Gap 20 BUN 30 H D Creatinine 5.70 H* Estim Creat Clear Calc 8.6 Estimated GFR 7 Random Glucose 232 H Lactic Acid Calcium 9.5 Phosphorus Magnesium 2.6 Total Bilirubin 0.4 Direct Bilirubin 0.2 AST 41 H D ALT 17 Alkaline Phosphatase 162 H Troponin I High Sens B-Natriuretic Peptide Total Protein 7.8 Albumin 4.0 Urine Opiates Screen Urine Fentanyl Screen Ur Barbiturates Screen Ur Phencyclidine Scrn Ur Amphetamines Screen U Benzodiazepines Scrn Urine Cocaine Screen U Marijuana (THC) Screen COVID-19 (KRYSTINA) Negative COVID-19 iQiyi Com See Note 10/12/21 10/12/21 10/12/21 20:03 20:03 20:07 WBC RBC Hgb Hct MCV MCH MCHC RDW Plt Count MPV Immature Gran % (Auto) Neut % (Auto) Lymph % (Auto) [place] % (Auto) Eos % (Auto) Baso % (Auto) Lymph # (Auto) [place] # (Auto) Eos # (Auto) Baso # (Auto) Abs Immat Gran (auto) Absolute Neuts (auto) Absolute Nucleated RBC Nucleated RBC % (auto) Smear Tech's Comments PT 10.5 INR 0.9 aPTT Heparin Protocol O2 Saturation ABG pH at Pt Temp ABG pCO2 at Pt Temp ABG pO2 at Pt Temp ABG HCO3 ABG Base Excess (Actual) VBG pH 7.39 VBG pCO2 38 VBG pO2 152 VBG HCO3 23 VBG O2 Saturation 99.0 VBG Base Excess -0.7 Sodium Potassium Chloride Carbon Dioxide Anion Gap BUN Creatinine Estim Creat Clear Calc Estimated GFR Random Glucose Lactic Acid Calcium Phosphorus Magnesium Total Bilirubin Direct Bilirubin AST ALT Alkaline Phosphatase Troponin I High Sens 787.7 H* D B-Natriuretic Peptide 8105 H Total Protein Albumin Urine Opiates Screen Urine Fentanyl Screen Ur Barbiturates Screen Ur Phencyclidine Scrn Ur Amphetamines Screen U Benzodiazepines Scrn Urine Cocaine Screen U Marijuana (THC) Screen COVID-19 (KRYSTINA) [employer] 10/13/21 10/13/21 10/13/21 00:00 00:00 00:00 WBC RBC Hgb Hct MCV MCH MCHC RDW Plt Count MPV Immature Gran % (Auto) Neut % (Auto) Lymph % (Auto) [place] % (Auto) Eos % (Auto) Baso % (Auto) Lymph # (Auto) [place] # (Auto) Eos # (Auto) Baso # (Auto) Abs Immat Gran (auto) Absolute Neuts (auto) Absolute Nucleated RBC Nucleated RBC % (auto) Smear Tech's Comments PT 11.1 INR 1.0 aPTT Heparin Protocol 81.4 H O2 Saturation ABG pH at Pt Temp ABG pCO2 at Pt Temp ABG pO2 at Pt Temp ABG HCO3 ABG Base Excess (Actual) VBG pH VBG pCO2 VBG pO2 VBG HCO3 VBG O2 Saturation VBG Base Excess Sodium Potassium Chloride Carbon Dioxide Anion Gap BUN Creatinine Estim Creat Clear Calc Estimated GFR Random Glucose Lactic Acid 1.0 Calcium Phosphorus Magnesium Total Bilirubin Direct Bilirubin AST ALT Alkaline Phosphatase Troponin I High Sens 709.8 H* B-Natriuretic Peptide Total Protein Albumin Urine Opiates Screen Urine Fentanyl Screen Ur Barbiturates Screen Ur Phencyclidine Scrn Ur Amphetamines Screen U Benzodiazepines Scrn Urine Cocaine Screen U Marijuana (THC) Screen COVID-19 (KRYSTINA) COVID-19 [facility]i [facility] 10/13/21 10/13/21 10/13/21 01:05 03:26 05:13 WBC RBC Hgb Hct MCV MCH MCHC RDW Plt Count MPV Immature Gran % (Auto) Neut % (Auto) Lymph % (Auto) [place] % (Auto) Eos % (Auto) Baso % (Auto) Lymph # (Auto) [place] # (Auto) Eos # (Auto) Baso # (Auto) Abs Immat Gran (auto) Absolute Neuts (auto) Absolute Nucleated RBC Nucleated RBC % (auto) Smear Tech's Comments PT INR aPTT Heparin Protocol 118.5 H* D O2 Saturation 98.0 ABG pH at Pt Temp 7.34 L ABG pCO2 at Pt Temp 54 H ABG pO2 at Pt Temp 128 H ABG HCO3 29 H ABG Base Excess (Actual) 3.1 VBG pH VBG pCO2 VBG pO2 VBG HCO3 VBG O2 Saturation VBG Base Excess Sodium Potassium Chloride Carbon Dioxide Anion Gap BUN Creatinine Estim Creat Clear Calc Estimated GFR Random Glucose Lactic Acid Calcium Phosphorus Magnesium Total Bilirubin Direct Bilirubin AST ALT Alkaline Phosphatase Troponin I High Sens B-Natriuretic Peptide Total Protein Albumin Urine Opiates Screen Not Detected Urine Fentanyl Screen Not Detected Ur Barbiturates Screen Not Detected Ur Phencyclidine Scrn Not Detected Ur Amphetamines Screen Not Detected U Benzodiazepines Scrn Not Detected Urine Cocaine Screen Not Detected U Marijuana (THC) Screen Not Detected COVID-19 (KRYSTINA) COVID-19 Achaogen 10/13/21 10/13/21 10/13/21 05:13 05:13 05:13 WBC 17.5 H RBC 3.41 L Hgb 10.0 L Hct 30.9 L MCV 90.6 MCH 29.3 MCHC 32.4 RDW 14.5 Plt Count 186 D MPV 9.5 Immature Gran % (Auto) 0.6 H Neut % (Auto) 88.9 H Lymph % (Auto) 4.4 L [place] % (Auto) 6.0 Eos % (Auto) 0.0 Baso % (Auto) 0.1 Lymph # (Auto) 0.8 L [place] # (Auto) 1.1 Eos # (Auto) 0.0 Baso # (Auto) 0.0 Abs Immat Gran (auto) 0.11 H Absolute Neuts (auto) 15.5 H Absolute Nucleated RBC 0.000 Nucleated RBC % (auto) 0.0 Smear Tech's Comments PT INR aPTT Heparin Protocol O2 Saturation ABG pH at Pt Temp ABG pCO2 at Pt Temp ABG pO2 at Pt Temp ABG HCO3 ABG Base Excess (Actual) VBG pH VBG pCO2 VBG pO2 VBG HCO3 VBG O2 Saturation VBG Base Excess Sodium 133 L Potassium 4.0 Chloride 95 L Carbon Dioxide 25 Anion Gap 17 BUN 34 H Creatinine 5.93 H* Estim Creat Clear Calc 8.2 Estimated GFR 7 Random Glucose 179 H Lactic Acid Calcium 8.2 L D Phosphorus 4.3 Magnesium 2.6 Total Bilirubin 0.3 Direct Bilirubin AST 32 H ALT 13 Alkaline Phosphatase 117 D Troponin I High Sens B-Natriuretic Peptide 7788 H Total Protein 5.7 L D Albumin 2.9 L D Urine Opiates Screen Urine Fentanyl Screen Ur Barbiturates Screen Ur Phencyclidine Scrn Ur Amphetamines Screen U Benzodiazepines Scrn Urine Cocaine Screen U Marijuana (THC) Screen COVID-19 (KRYSTINA) COVID-19 Achaogen 10/13/21 10/13/21 10/13/21 05:19 05:20 09:14 WBC RBC Hgb Hct MCV MCH MCHC RDW Plt Count MPV Immature Gran % (Auto) Neut % (Auto) Lymph % (Auto) [place] % (Auto) Eos % (Auto) Baso % (Auto) Lymph # (Auto) [place] # (Auto) Eos # (Auto) Baso # (Auto) Abs Immat Gran (auto) Absolute Neuts (auto) Absolute Nucleated RBC Nucleated RBC % (auto) Smear Tech's Comments PT INR aPTT Heparin Protocol 32.5 L D O2 Saturation ABG pH at Pt Temp ABG pCO2 at Pt Temp ABG pO2 at Pt Temp ABG HCO3 ABG Base Excess (Actual) VBG pH 7.36 VBG pCO2 50 VBG pO2 59 VBG HCO3 29 H VBG O2 Saturation 85.0 VBG Base Excess 3.2 Sodium Potassium Chloride Carbon Dioxide Anion Gap BUN Creatinine Estim Creat Clear Calc Estimated GFR Random Glucose Lactic Acid Calcium Phosphorus Magnesium Total Bilirubin Direct Bilirubin AST ALT Alkaline Phosphatase Troponin I High Sens 629.2 H* B-Natriuretic Peptide Total Protein Albumin Urine Opiates Screen Urine Fentanyl Screen Ur Barbiturates Screen Ur Phencyclidine Scrn Ur Amphetamines Screen U Benzodiazepines Scrn Urine Cocaine Screen U Marijuana (THC) Screen COVID-19 (KRYSTINA) COVID-19 Clin Com Microbiology Microbiology Results: Microbiology 10/12/21 23:51 Blood - Central Line Blood Culture - Final 10/12/21 23:51 Blood - Central Line Blood Culture - Final Procedures Date of Service Date of Service: 10/13/21 Assessment & Plan Assessment and plan (1) Flash pulmonary edema: Status: Acute (2) End stage renal disease on dialysis: Status: Acute Assessment and Plan: 66-year-old female with a past medical history of hypertension, hyperlipidemia, CAD, CHF, CKD/ ESRD on hemodialysis, asthma, anemia, history of anasarca, ascites; presented to the hospital with a chief complaint of shortness of breath. IMPRESSION: 1. End-stage renal disease. 2. Heart failure with preserved ejection fraction. 3. Anemia. ? This is a patient with end-stage kidney disease presenting with sob and found to have flash pulmonary edema. Continue TTS schedule and challenge EDW. She will require fluid restriction education at time of discharge. We will have her on a renal diet. No indication for CRUZITO. COntinue phosphate binders and resume her dialysis per outpatient schedule. Time Spent With Patient Time: Total time spent is greater than 50% in coordination of care (as documented) at patient's floor/unit and/or counseling patient: Progress Note: Quality Stroke Does the patient have a stroke diagnosis?: No
[2021-10-13] MEDS: fentaNYL citrate/PF 100 MCG/2 ML VIAL IVPUSH (20:13)
[2021-10-14] VITALS (32 sets, daily range): BP systolic 125–201; BP diastolic 59–100; PULSE 59–113; RESP 17–26; TEMP 34.5–37.5; O2SAT 90–97; BMI 27.9
[2021-10-14] MEDS: propofoL 1,000 MG/100 ML VIAL 21 MG IVCONT ×2 (01:22→05:33)
[2021-10-14] MEDS: Piperacillin Sodium/Tazobactam 4.5 GM in 0.9 % Sodium Chloride 100 ML IV (03:45)
[2021-10-14 05:33] LABS: MANUAL DIFF FLAG NO
[2021-10-14] MEDS: Pantoprazole Sodium 40 MG/10 ML VIAL IVPUSH (05:33)
[2021-10-14 05:36] LABS: Basophils Percent Auto 0.1 % (0-2); Eosinophils Absolute Auto 0.1 X10*3/uL (0.0-0.4); Eosinophils Percent Auto 0.7 % (0-4); Hematocrit 32.3 % (37.0-47.0); Hemoglobin 10.3 g/dl (12.0-16.0); Imm Gran Pct Auto 1.2 % (0.0-0.4); Lymphocytes Absolute Auto 1.2 X10*3/uL (1.2-4.9); Lymphocytes Percent Auto 14.1 % (20-40); Mean Corpuscular HGB Conc 31.9 g/dl (31.0-35.0); Mean Corpuscular Hemoglobin 29.1 pg (27.0-33.0); Mean Corpuscular Volume 91.2 fL (80.0-98.0); Mean Platelet Volume 9.6 fL (9.4-12.3); Monocytes Absolute Auto 0.6 X10*3/uL (0.1-1.2); Monocytes Percent Auto 6.5 % (2-11); Neutrophils Absolute Auto 6.7 x10*3/uL (2.0-8.3); Neutrophils Percent Auto 77.4 % (45-73); Platelet Count 179 X10*3/uL (160-400); Red Blood Count 3.54 X10*6/uL (4.20-5.50); Red Cell Distribution Width 14.6 % (11.0-16.0); White Blood Count 8.6 X10*3/uL (4.8-10.8)
[2021-10-14 05:37] LABS: VBG Base Excess -3.8 mmol/L; VBG HCO3 21 mmol/L (22-26); VBG pCO2 40 mmHg; VBG pH 7.33 (7.32-7.43); VBG pO2 47 mmHg
[2021-10-14 06:08] LABS: Albumin Level 3.7 g/dL (3.5-5.0); Anion Gap 16 (12-20); Blood Urea Nitrogen 16 mg/dL (9-16); Calcium 8.5 mg/dL (8.4-10.2); Carbon Dioxide 21 mmol/L (22-29); Chloride 99 mmol/L (96-108); Creatinine Clr Calc Pharmacy 12.4; Estimated Glomerular Filt Rate 12; Glucose Random 72 mg/dL (60-115); Magnesium 2.2 mg/dL (1.6-2.6); Phosphorus 3.1 mg/dL (2.7-4.5); Potassium 3.9 mmol/L (3.3-5.1); Sodium 132 mmol/L (135-145)
[2021-10-14 07:20] LABS: Venous Blood Gas Refer to POC result
[2021-10-14] MEDS: Chlorhexidine Gluc Oral Rinse 15 ML MOUTHWASH BUCCAL (08:13)
--- NOTE | 2021-10-14 08:58 | P.PNCA_ITS ---
Subjective Subjective Date of Service: 10/14/21 Interval history: Seen and examined. Sedated and intubated. Physical Exam Vital Signs: Last Vital Signs Temp 99.5 F 10/14/21 08:00 Pulse 87 10/14/21 08:00 Resp 23 H 10/14/21 08:00 BP 176/84 H 10/14/21 08:00 Pulse Ox 95 10/14/21 08:00 BMI result Body Mass Index 27.9 GENERAL APPEARANCE:? Sedated intubated. NECK: no carotid bruit, + jugular venous distention. SKIN: no suspicious lesions, warm and dry. HEART: no murmurs, regular rate and rhythm. LUNGS:?Mild bilateral wheezes. ABDOMEN: soft. EXTREMITIES: no edema. PERIPHERAL PULSES: equal. NEUROLOGIC: No gross deficits, AAO X 3 Objective Labs and Meds Result diagrams: 10/14/21 05:25 10/14/21 05:25 Lab results: Laboratory Results - last 24 hr 10/13/21 10/14/21 10/14/21 09:14 05:25 05:25 WBC 8.6 RBC 3.54 L Hgb 10.3 L Hct 32.3 L MCV 91.2 MCH 29.1 MCHC 31.9 RDW 14.6 Plt Count 179 MPV 9.6 Immature Gran % (Auto) 1.2 H Neut % (Auto) 77.4 H Lymph % (Auto) 14.1 L [place] % (Auto) 6.5 Eos % (Auto) 0.7 Baso % (Auto) 0.1 Lymph # (Auto) 1.2 [place] # (Auto) 0.6 Eos # (Auto) 0.1 Baso # (Auto) 0.0 Abs Immat Gran (auto) 0.10 H Absolute Neuts (auto) 6.7 Absolute Nucleated RBC 0.000 Nucleated RBC % (auto) 0.0 aPTT Heparin Protocol 32.5 L D VBG pH VBG pCO2 VBG pO2 VBG HCO3 VBG O2 Saturation VBG Base Excess Sodium 132 L Potassium 3.9 Chloride 99 Carbon Dioxide 21 L Anion Gap 16 BUN 16 D Creatinine 3.79 H Estim Creat Clear Calc 12.4 Estimated GFR 12 Random Glucose 72 Calcium 8.5 Phosphorus 3.1 Magnesium 2.2 Albumin 3.7 D 10/14/21 05:29 WBC RBC Hgb Hct MCV MCH MCHC RDW Plt Count MPV Immature Gran % (Auto) Neut % (Auto) Lymph % (Auto) [place] % (Auto) Eos % (Auto) Baso % (Auto) Lymph # (Auto) [place] # (Auto) Eos # (Auto) Baso # (Auto) Abs Immat Gran (auto) Absolute Neuts (auto) Absolute Nucleated RBC Nucleated RBC % (auto) aPTT Heparin Protocol VBG pH 7.33 VBG pCO2 40 VBG pO2 47 VBG HCO3 21 L VBG O2 Saturation 73.0 VBG Base Excess -3.8 Sodium Potassium Chloride Carbon Dioxide Anion Gap BUN Creatinine Estim Creat Clear Calc Estimated GFR Random Glucose Calcium Phosphorus Magnesium Albumin Progress Note: A&P Assessment and plan (1) NSTEMI (non-ST elevated myocardial infarction): Status: Acute (2) Hypertensive emergency: Status: Acute (3) Acute respiratory failure with hypoxia: Status: Acute Plan 66 year old female with pulm edema due to hypertensive emergency. Dialyzed. Plan is potential extubation. Still mildly wheezy. Would resume clonidine as soon as possible as she will withdraw from it and wo uld have high BP. Type 2 AR due to elevated BP. Time Spent With Patient Time: Total time spent is greater than 50% in coordination of care (as documented) at patient's floor/unit and/or counseling patient: Progress Note: Quality Stroke Does the patient have a stroke diagnosis?: No Procedures Date of Service Date of Service: 10/14/21
--- NOTE | 2021-10-14 12:30 | P.PNCC_ITS ---
Subjective Subjective Date of Service: 10/14/21 Interval History: 66-year-old lady with underlying history of ESRD hemodialysis, congestive heart failure, diabetes mellitus, hypertension, poor compliance with medical treatments readmitted on 10/12/2021 with worsening shortness of breath secondary to pulmonary edema from poor compliance with dialysis treatments. Patient was initially trialed on BiPAP, however she further deteriorated and required intubation with ventilatory support. Patient was transferred to intensive care unit. She was started on heparin drip for what appears to be demand ischemia/NSTEMI. No events overnight. Extubated thsi a.m. Critical Care Time (minutes): 45 Physical Exam Vital Signs: Vital Signs: Last Vital Signs Temp 99.0 F 10/14/21 12:00 Pulse 107 H 10/14/21 12:00 Resp 19 10/14/21 12:00 BP 182/84 H 10/14/21 12:00 Pulse Ox 92 10/14/21 12:00 BMI result Body Mass Index 27.9 Const: General: no acute distress, alert and awake Eyes: Sclerae: sclerae normal EOM: EOMs intact bilaterally Neck: Neck: Yes no lymphadenopathy, Yes trachea midline and Yes supple Resp: Effort & Inspection: normal respiratory effort and no respiratory distress Auscultation: clear to auscultation bilaterally Cardio: Rate: tachycardic Rhythm: regular rhythm Heart sounds: no gallops, no murmurs and no rubs GI: Palpation (GI): Soft to palpation and Other GI palpation findings present ( Nontender) Auscultation: normal bowel sounds Extrem: General: Yes no pedal edema, No clubbing and No cyanosis Objective Data Labs CBC & Chem 7: 10/14/21 05:25 10/14/21 05:25 Labs: Laboratory Results - last 24 hr 10/14/21 10/14/21 10/14/21 05:25 05:25 05:29 WBC 8.6 RBC 3.54 L Hgb 10.3 L Hct 32.3 L MCV 91.2 MCH 29.1 MCHC 31.9 RDW 14.6 Plt Count 179 MPV 9.6 Immature Gran % (Auto) 1.2 H Neut % (Auto) 77.4 H Lymph % (Auto) 14.[address] [place] % (Auto) 6.5 Eos % (Auto) 0.7 Baso % (Auto) 0.1 Lymph # (Auto) 1.2 [place] # (Auto) 0.6 Eos # (Auto) 0.1 Baso # (Auto) 0.0 Abs Immat Gran (auto) 0.10 H Absolute Neuts (auto) 6.7 Absolute Nucleated RBC 0.000 Nucleated RBC % (auto) 0.0 VBG pH 7.33 VBG pCO2 40 VBG pO2 47 VBG HCO3 21 L VBG O2 Saturation 73.0 VBG Base Excess -3.8 Sodium 132 L Potassium 3.9 Chloride 99 Carbon Dioxide 21 L Anion Gap 16 BUN 16 D Creatinine 3.79 H Estim Creat Clear Calc 12.4 Estimated GFR 12 Random Glucose 72 Calcium 8.5 Phosphorus 3.1 Magnesium 2.2 Albumin 3.7 D Microbiology Microbiology Results: Microbiology 10/12/21 23:54 Blood - Venous Blood Culture - Preliminary No growth after 24 hours. 10/12/21 23:55 Blood - Venous Blood Culture - Preliminary No growth after 24 hours. 10/12/21 23:51 Blood - Central Line Blood Culture - Final 10/12/21 23:51 Blood - Central Line Blood Culture - Final Progress Note: A&P Assessment and plan (1) End stage renal disease on dialysis: Status: Acute (2) Flash pulmonary edema: Status: Acute (3) Hypertensive emergency: Status: Acute (4) Congestive heart failure: Status: Acute (5) Dialysis patient, noncompliant: Status: Acute Plan Assessment: 66-year-old lady poorly compliant with hemodialysis treatment admitted with flash pulmonary edema resulting in acute hypoxic respiratory failure requiring ventilatory support. Plan: Neuro: No acute issues. Cardiac: Acute exacerbation of underlying chronic diastolic congestive heart failure with flash pulmonary edema. Improved with ultrafiltration. Cardiology service care appreciated. Hypertensive emergency resolved. Pulmonary: Acute hypoxic respiratory failure initially requiring ventilatory support, extubated this a.m. Renal: End-stage renal disease with patient poorly compliant with hemodialysis. Nephrology service care appreciated. Continue with hemodialysis. Endo: No acute issues. Underlying diabetes mellitus. GI: No acute issues. ID: No acute issues Heme/Onc: No acute issues. Psych: No acute issues. Miscellaneous: No acute issues. Prophylaxis: Heparin drip Diet: Pending swallow evaluation Critical care time spent: 45 minutes Quality Stroke Does the patient have a stroke diagnosis?: No VTE Prior VTE?: No VTE Risk Level:: Medical - moderate - high VTE Device Contraindication: Treatment Not Indicated VTE Drug Contraindication: N/A - Med Ordered
[2021-10-14] MEDS: cloNIDine 0.2 MG PATCH.TDWK TRANSDERMA (13:18)
--- NOTE | 2021-10-14 15:54 | PM.PNNEP ---
Subjective Subjective Date of Service: 10/14/21 Interval history: 66-year-old lady with underlying history of ESRD hemodialysis, congestive heart failure, diabetes mellitus, hypertension, poor compliance with medical treatments readmitted on 10/12/2021 with worsening shortness of breath secondary to pulmonary edema from poor compliance with dialysis treatments. Patient was initially trialed on BiPAP, however she further deteriorated and required intubation with ventilatory support. Patient was transferred to intensive care unit. She was started on heparin drip for what appears to be demand ischemia/NSTEMI. Now extubated this am Physical Exam Vital Signs: Vital Signs: Last Vital Signs Temp 99.0 F 10/14/21 12:00 Pulse 100 10/14/21 15:00 Resp 20 10/14/21 15:00 BP 174/83 H 10/14/21 15:00 Pulse Ox 93 10/14/21 15:00 BMI result Body Mass Index 27.9 HEENT: Head: Yes normocephalic Neck: Neck: Yes no JVD Resp: Auscultation: clear to auscultation bilaterally Cardio: Jugular venous distension: no JVD Rate: regular rate Rhythm: regular rhythm Heart sounds: S1 normal heart sound present and S2 normal heart sound present GI: Percussion: Yes normal to percussion Auscultation: normal bowel sounds Neuro: General: tone normal Extrem: General: Yes no clubbing, cyanosis or edema Objective Data Labs CBC & Chem 7: 10/14/21 05:25 10/14/21 05:25 Labs: Laboratory Results - last 24 hr 10/14/21 10/14/21 10/14/21 05:25 05:25 05:29 WBC 8.6 RBC 3.54 L Hgb 10.3 L Hct 32.3 L MCV 91.2 MCH 29.1 MCHC 31.9 RDW 14.6 Plt Count 179 MPV 9.6 Immature Gran % (Auto) 1.2 H Neut % (Auto) 77.4 H Lymph % (Auto) 14.1 L [place] % (Auto) 6.5 Eos % (Auto) 0.7 Baso % (Auto) 0.1 Lymph # (Auto) 1.2 [place] # (Auto) 0.6 Eos # (Auto) 0.1 Baso # (Auto) 0.0 Abs Immat Gran (auto) 0.10 H Absolute Neuts (auto) 6.7 Absolute Nucleated RBC 0.000 Nucleated RBC % (auto) 0.0 VBG pH 7.33 VBG pCO2 40 VBG pO2 47 VBG HCO3 21 L VBG O2 Saturation 73.0 VBG Base Excess -3.8 Sodium 132 L Potassium 3.9 Chloride 99 Carbon Dioxide 21 L Anion Gap 16 BUN 16 D Creatinine 3.79 H Estim Creat Clear Calc 12.4 Estimated GFR 12 Random Glucose 72 Calcium 8.5 Phosphorus 3.1 Magnesium 2.2 Albumin 3.7 D Microbiology Microbiology Results: Microbiology 10/12/21 23:54 Blood - Venous Blood Culture - Preliminary No growth after 24 hours. 10/12/21 23:55 Blood - Venous Blood Culture - Preliminary No growth after 24 hours. 10/12/21 23:51 Blood - Central Line Blood Culture - Final 10/12/21 23:51 Blood - Central Line Blood Culture - Final Procedures Date of Service Date of Service: 10/14/21 Assessment & Plan Assessment and plan (1) Flash pulmonary edema: Status: Acute (2) End stage renal disease on dialysis: Status: Acute Assessment and Plan: 66-year-old female with a past medical history of hypertension, hyperlipidemia, CAD, CHF, CKD/ ESRD on hemodialysis, asthma, anemia, history of anasarca, ascites; presented to the hospital with a chief complaint of shortness of breath. IMPRESSION: 1. End-stage renal disease. 2. Heart failure with preserved ejection fraction. 3. Anemia 4. Resp failure w flash pulm edema REC: cont HD TTS; stress avoid salt in diet will follow w team ? Time Spent With Patient Time: Total time spent is greater than 50% in coordination of care (as documented) at patient's floor/unit and/or counseling patient: Progress Note: Quality Stroke Does the patient have a stroke diagnosis?: No
[2021-10-14] MEDS: Labetalol HCL 100 MG/20 ML VIAL 20 MG IVPUSH ×2 (16:40→18:53)
--- NOTE | 2021-10-14 19:33 | PC.NURSE ---
pt HTN throughout this evening. MD informed, prn labetalol administered as ordered. ok'd early dose of lebatelol d/t increase SBP. central line dressing chagned. Pt repo'ed Q2. bedside swallow eval to be performed. HCP updated. safety and fall precautions in place.
[2021-10-14] MEDS: niCARdipine HCL 25 MG in 0.9 % Sodium Chloride 250 ML 52 MG IVCONT (20:54)
[2021-10-14] MEDS: traZODone HCL 50 MG TABLET PO (23:01)
[2021-10-15] VITALS (31 sets, daily range): BP systolic 116–201; BP diastolic 60–105; PULSE 67–94; RESP 15–23; TEMP 36.4–36.9; O2SAT 90–98; BMI 26.4
--- NOTE | 2021-10-15 | ECG_ITS ---
Test Reason : ST CHECK Blood Pressure : / mmHG Vent. Rate : 081 BPM Atrial Rate : 081 BPM P-R Int : 148 ms QRS Dur : 084 ms QT Int : 432 ms P-R-T Axes : 064 -11 -79 degrees QTc Int : 501 ms Normal sinus rhythm Minimal voltage criteria for LVH, may be normal variant ( Jona product ) Marked T wave abnormality, consider anterolateral ischemia Prolonged QT Abnormal ECG When compared with ECG of 13-OCT-2021 14:36, QT has shortened Referred By: Franck James Electronically Signed By:CRISTIAN REMY MD
[2021-10-15] MEDS: niCARdipine HCL 25 MG in 0.9 % Sodium Chloride 250 ML 41.6 MG IVCONT (03:13)
[2021-10-15 05:30] LABS: VBG Base Excess -5.4 mmol/L; VBG HCO3 19 mmol/L (22-26); VBG pCO2 35 mmHg; VBG pH 7.34 (7.32-7.43); VBG pO2 47 mmHg
[2021-10-15 05:37] LABS: MANUAL DIFF FLAG NO; Venous Blood Gas Refer to POC result
[2021-10-15 05:43] LABS: Basophils Percent Auto 0.1 % (0-2); Eosinophils Absolute Auto 0.2 X10*3/uL (0.0-0.4); Eosinophils Percent Auto 2.6 % (0-4); Hematocrit 30.5 % (37.0-47.0); Imm Gran Abs Auto 0.09 X10*3/uL (0.00-0.03); Lymphocytes Absolute Auto 1.1 X10*3/uL (1.2-4.9); Lymphocytes Percent Auto 12.3 % (20-40); Mean Corpuscular HGB Conc 32.8 g/dl (31.0-35.0); Mean Corpuscular Hemoglobin 29.4 pg (27.0-33.0); Mean Corpuscular Volume 89.7 fL (80.0-98.0); Mean Platelet Volume 10.2 fL (9.4-12.3); Monocytes Absolute Auto 0.8 X10*3/uL (0.1-1.2); Monocytes Percent Auto 8.4 % (2-11); Neutrophils Percent Auto 75.6 % (45-73); Platelet Count 203 X10*3/uL (160-400); Red Cell Distribution Width 14.5 % (11.0-16.0); White Blood Count 9.2 X10*3/uL (4.8-10.8)
[2021-10-15 06:17] LABS: Albumin Level 3.5 g/dL (3.5-5.0); Anion Gap 18 (12-20); Blood Urea Nitrogen 35 mg/dL (9-16); Calcium 8.4 mg/dL (8.4-10.2); Carbon Dioxide 19 mmol/L (22-29); Chloride 100 mmol/L (96-108); Creatinine Clr Calc Pharmacy 7.8; Estimated Glomerular Filt Rate 7; Glucose Random 130 mg/dL (60-115); Magnesium 2.4 mg/dL (1.6-2.6); Phosphorus 3.7 mg/dL (2.7-4.5); Potassium 3.5 mmol/L (3.3-5.1); Sodium 133 mmol/L (135-145)
[2021-10-15] MEDS: Potassium Chloride/H20 40 MEQ/100 ML PIGGYBACK 50 MEQ IV (06:35)
[2021-10-15] MEDS: niCARdipine HCL 25 MG in 0.9 % Sodium Chloride 250 ML 46.8 MG IVCONT (08:53)
[2021-10-15] MEDS: Isosorbide Mononitrate 30 MG TAB.ER.24H PO (09:51)
[2021-10-15] MEDS: amLODIPine Besylate 10 MG TABLET PO (09:51)
[2021-10-15] MEDS: Buprenorphine/Naloxone 8/2 mg FILM 1 FILM SUBLINGUAL ×2 (09:51→20:14)
--- NOTE | 2021-10-15 11:25 | P.PNCC_ITS ---
Subjective Subjective Date of Service: 10/15/21 Interval History: 66-year-old lady with underlying history of ESRD hemodialysis, congestive heart failure, diabetes mellitus, hypertension, poor compliance with medical treatments readmitted on 10/12/2021 with worsening shortness of breath secondary to pulmonary edema from poor compliance with dialysis treatments. Patient was initially trialed on BiPAP, however she further deteriorated and required intubation with ventilatory support. Patient was transferred to intensive care unit. Pulmonary edema improved with dialysis and she was extubated on 10/14/2021. No events overnight , titrated off Cardene drip. Critical Care Time (minutes): 0 Physical Exam Vital Signs: Vital Signs: Last Vital Signs Temp 99.5 F 10/14/21 16:00 Pulse 83 10/15/21 11:00 Resp 17 10/15/21 11:00 BP 153/78 H 10/15/21 11:00 Pulse Ox 94 10/15/21 11:00 BMI result Body Mass Index 26.4 Const: General: no acute distress, alert and awake Eyes: Sclerae: sclerae normal EOM: EOMs intact bilaterally Neck: Neck: Yes no lymphadenopathy, Yes trachea midline and Yes supple Resp: Effort & Inspection: normal respiratory effort and no respiratory distress Auscultation: clear to auscultation bilaterally Cardio: Rate: regular rate Rhythm: regular rhythm Heart sounds: no gallops, no murmurs and no rubs GI: Palpation (GI): Soft to palpation and Other GI palpation findings present ( Nontender) Auscultation: normal bowel sounds Extrem: General: Yes no pedal edema, No clubbing and No cyanosis Objective Data Labs CBC & Chem 7: 10/15/21 05:18 10/15/21 05:18 Labs: Laboratory Results - last 24 hr 10/15/21 10/15/21 10/15/21 05:18 05:18 05:19 WBC 9.2 RBC 3.40 L Hgb 10.0 L Hct 30.5 L MCV 89.7 MCH 29.4 MCHC 32.8 RDW 14.5 Plt Count 203 MPV 10.2 Immature Gran % (Auto) 1.0 H Neut % (Auto) 75.6 H Lymph % (Auto) 12.3 L [place] % (Auto) 8.4 Eos % (Auto) 2.6 Baso % (Auto) 0.1 Lymph # (Auto) 1.1 L [place] # (Auto) 0.8 Eos # (Auto) 0.2 Baso # (Auto) 0.0 Abs Immat Gran (auto) 0.09 H Absolute Neuts (auto) 7.0 Absolute Nucleated RBC 0.000 Nucleated RBC % (auto) 0.0 VBG pH 7.34 VBG pCO2 35 VBG pO2 47 VBG HCO3 19 L VBG O2 Saturation 74.0 VBG Base Excess -5.4 Sodium 133 L Potassium 3.5 Chloride 100 Carbon Dioxide 19 L Anion Gap 18 BUN 35 H D Creatinine 5.97 H* Estim Creat Clear Calc 7.8 Estimated GFR 7 Random Glucose 130 H Calcium 8.4 Phosphorus 3.7 Magnesium 2.4 Albumin 3.5 Microbiology Microbiology Results: Microbiology 10/12/21 23:54 Blood - Venous Blood Culture - Preliminary No growth after 48 hours. 10/12/21 23:55 Blood - Venous Blood Culture - Preliminary No growth after 48 hours. 10/12/21 23:51 Blood - Central Line Blood Culture - Final 10/12/21 23:51 Blood - Central Line Blood Culture - Final Progress Note: A&P Assessment and plan (1) End stage renal disease on dialysis: Status: Acute (2) Acute respiratory failure with hypoxia: Status: Acute (3) Flash pulmonary edema: Status: Acute (4) Hypertensive emergency: Status: Acute (5) Congestive heart failure: Status: Acute (6) Dialysis patient, noncompliant: Status: Acute (7) Diabetes mellitus: Status: Acute Plan Assessment: 66-year-old lady poorly compliant with hemodialysis treatment admitted with flash pulmonary edema resulting in acute hypoxic respiratory samuel lure requiring ventilatory support. Plan: Neuro: No acute issues. Cardiac: Acute exacerbation of underlying chronic diastolic congestive heart failure with flash pulmonary edema. Improved with ultrafiltration. Cardiology service care appreciated. Hypertensive emergency resolved. Pulmonary: Acute hypoxic respiratory failure initially requiring ventilatory support, extubated 10/14/2021. Renal: End-stage renal disease with patient poorly compliant with hemodialysis. Nephrology service care appreciated. Continue with hemodialysis. Endo: No acute issues. Underlying diabetes mellitus. GI: No acute issues. ID: No acute issues Heme/Onc: No acute issues. Psych: No acute issues. Miscellaneous: No acute issues. Prophylaxis: Heparin drip Diet: Diabetic Quality Stroke Does the patient have a stroke diagnosis?: No VTE Prior VTE?: No VTE Risk Level:: Medical - moderate - high VTE Device Contraindication: Treatment Not Indicated VTE Drug Contraindication: N/A - Med Ordered
[2021-10-15 12:26] LABS: Glucose, Whole Blood 113 mg/dL (60-115)
--- NOTE | 2021-10-15 12:31 | PM.EVENT ---
Event Note Date of Service: 10/15/21 Event Note: acute resp failure due to ESRD fluid overload and hypertension, now extubated
[2021-10-15] MEDS: Calcium Carbonate 750 MG TAB.CHEW PO (14:03)
[2021-10-15] MEDS: Labetalol HCL 100 MG/20 ML VIAL 20 MG IVPUSH (14:55)
--- NOTE | 2021-10-15 15:09 | PC.NURSE ---
Addendum entered by Saeed Garza RN 10/15/21 15:39: pt c/o anxiety, requesting medication to calm her down. pt stated she doesnt take anything at home for anxiety. md informed. Original Note: pt receiving dialysis this AM. pt ordered food and was able to eat w/o complications. prn labetalol given for BP. md informed of pt's BP off [place] drip. pt refusing to be repositioned in bed. poc maintained. IJ dressing changed. safety and fall precautions in place. transfer order in
[2021-10-15] MEDS: LORazepam 0.5 MG TABLET PO (15:49)
[2021-10-15] MEDS: Albumin Human 25 % 100 ML IV (16:40)
[2021-10-15] MEDS: cloNIDine HCL 0.2 MG TABLET PO (17:22)
[2021-10-16] VITALS (16 sets, daily range): BP systolic 96–189; BP diastolic 47–147; PULSE 58–88; RESP 12–20; TEMP 36.6–37.2; O2SAT 93–98; BMI 25.9
[2021-10-16] MEDS: Labetalol HCL 100 MG/20 ML VIAL 20 MG IVPUSH (02:06)
[2021-10-16 05:32] LABS: MANUAL DIFF FLAG NO
[2021-10-16 05:43] LABS: Basophils Percent Auto 0.1 % (0-2); Eosinophils Absolute Auto 0.3 X10*3/uL (0.0-0.4); Eosinophils Percent Auto 3.7 % (0-4); Hematocrit 31.8 % (37.0-47.0); Hemoglobin 10.5 g/dl (12.0-16.0); Imm Gran Abs Auto 0.05 X10*3/uL (0.00-0.03); Imm Gran Pct Auto 0.6 % (0.0-0.4); Lymphocytes Absolute Auto 1.4 X10*3/uL (1.2-4.9); Lymphocytes Percent Auto 16.9 % (20-40); Mean Corpuscular Volume 87.8 fL (80.0-98.0); Mean Platelet Volume 9.3 fL (9.4-12.3); Monocytes Absolute Auto 0.8 X10*3/uL (0.1-1.2); Monocytes Percent Auto 9.9 % (2-11); Neutrophils Absolute Auto 5.8 x10*3/uL (2.0-8.3); Neutrophils Percent Auto 68.8 % (45-73); Platelet Count 216 X10*3/uL (160-400); Red Blood Count 3.62 X10*6/uL (4.20-5.50); Red Cell Distribution Width 14.1 % (11.0-16.0); White Blood Count 8.4 X10*3/uL (4.8-10.8)
[2021-10-16 06:05] LABS: Albumin Level 3.8 g/dL (3.5-5.0); Anion Gap 17 (12-20); Blood Urea Nitrogen 20 mg/dL (9-16); Carbon Dioxide 18 mmol/L (22-29); Chloride 100 mmol/L (96-108); Creatinine Clr Calc Pharmacy 11.6; Estimated Glomerular Filt Rate 11; Glucose Random 118 mg/dL (60-115); Magnesium 2.3 mg/dL (1.6-2.6); Phosphorus 3.5 mg/dL (2.7-4.5); Potassium 4.1 mmol/L (3.3-5.1); Sodium 131 mmol/L (135-145)
[2021-10-16 08:20] LABS: Glucose, Whole Blood 114 mg/dL (60-115)
[2021-10-16] MEDS: Isosorbide Mononitrate 30 MG TAB.ER.24H PO (08:20)
[2021-10-16] MEDS: cloNIDine HCL 0.2 MG TABLET PO ×2 (08:20→21:28)
[2021-10-16] MEDS: Buprenorphine/Naloxone 8/2 mg FILM 1 FILM SUBLINGUAL ×2 (08:21→21:27)
[2021-10-16] MEDS: amLODIPine Besylate 10 MG TABLET PO (08:21)
--- NOTE | 2021-10-16 09:02 | P.PNIM_ITS ---
Subjective Subjective Date of Service: 10/16/21 Interval History: cc: sob interval history:no complaints Cardiovascular Cardiovascular: Reports no additional cardiovascular complaints Respiratory Respiratory: Reports no additional respiratory complaints Physical Exam Vital Signs: Vital Signs: Last Vital Signs Temp 97.8 F 10/16/21 08:00 Pulse 67 10/16/21 08:00 Resp 15 10/16/21 08:00 BP 170/80 H 10/16/21 08:00 Pulse Ox 95 10/16/21 07:00 BMI result Body Mass Index 25.9 General: AO X 3, no acute distress Resp: CTA bilateral, no accessory muscles used CVS: S1,S2,RRR GI: soft, non tender, non distended Neuro: motor grossly intact, alert Psych: appropriate affect, appropriate insight Objective Data Active Medications Amlodipine Besylate (Amlodipine Besylate 10 Mg Tablet) 10 mg PO DAILY [facility]; Protocol Last Admin: 10/16/21 08:21 Dose: 10 mg Documented by: RIANA Buprenorphine/Naloxone (Buprenorphine/Naloxone 8/2 Mg Film) 1 film SUBLINGUAL BID [facility] Last Admin: 10/16/21 08:21 Dose: 1 film Documented by: RIANA Calcium Carbonate (Calcium Carbonate 750 Mg Tab.Chew) 750 mg PO Q4H PRN PRN Reason: Heartburn Last Admin: 10/15/21 14:03 Dose: 750 mg Documented by: KRISHNA Clonidine HCl (Clonidine Hcl 0.2 Mg Tablet) 0.2 mg PO BID [facility]; Protocol Last Admin: 10/16/21 08:20 Dose: 0.2 mg Documented by: RIANA Albumin Human (Kedbumin 25 %) 100 mls @ 100 mls/hr IV [id number] [facility] Last Infusion: 10/15/21 17:51 Dose: 0 mls/hr Documented by: FRANSISCO Isosorbide Mononitrate (Isosorbide Mononitrate 30 Mg Tab.Er.24h) 30 mg PO DAILY [facility]; Protocol Last Admin: 10/16/21 08:20 Dose: 30 mg Documented by: RIANA Labetalol HCl (Labetalol Hcl 100 Mg/20 Ml Vial) 20 mg IVPUSH Q4H PRN PRN Reason: Sbp > 180 Last Admin: 10/16/21 02:06 Dose: 20 mg Documented by: ALE Pharmacy Consult (Consult Rx Perform Med Rec) 1 each MISCELLANE ONCE PRN PRN Reason: Consult order Labs CBC & Chem 7: 10/16/21 05:15 10/16/21 05:15 Labs: Laboratory Results - last 24 hr 10/12/21 10/13/21 10/14/21 20:03 05:13 05:25 MCV MCH MCHC RDW Plt Count MPV Immature Gran % (Auto) Neut % (Auto) Lymph % (Auto) [place] % (Auto) Eos % (Auto) Baso % (Auto) Lymph # (Auto) [place] # (Auto) Eos # (Auto) Baso # (Auto) Abs Immat Gran (auto) Absolute Neuts (auto) Absolute Nucleated RBC Nucleated RBC % (auto) Anion Gap Creatinine 5.70 H* 5.93 H* 3.79 H Estim Creat Clear Calc Estimated GFR POC Glucose Random Glucose Calcium Phosphorus Magnesium Albumin 10/15/21 10/15/21 10/16/21 05:18 12:18 05:15 MCV 87.8 MCH 29.0 MCHC 33.0 RDW 14.1 Plt Count 216 MPV 9.3 L Immature Gran % (Auto) 0.6 H Neut % (Auto) 68.8 Lymph % (Auto) 16.9 L [place] % (Auto) 9.9 Eos % (Auto) 3.7 Baso % (Auto) 0.1 Lymph # (Auto) 1.4 [place] # (Auto) 0.8 Eos # (Auto) 0.3 Baso # (Auto) 0.0 Abs Immat Gran (auto) 0.05 H Absolute Neuts (auto) 5.8 Absolute Nucleated RBC 0.000 Nucleated RBC % (auto) 0.0 Anion Gap Creatinine 5.97 H* Estim Creat Clear Calc Estimated GFR POC Glucose 113 Random Glucose Calcium Phosphorus Magnesium Albumin 10/16/21 10/16/21 05:15 08:16 MCV MCH MCHC RDW Plt Count MPV Immature Gran % (Auto) Neut % (Auto) Lymph % (Auto) [place] % (Auto) Eos % (Auto) Baso % (Auto) Lymph # (Auto) [place] # (Auto) Eos # (Auto) Baso # (Auto) Abs Immat Gran (auto) Absolute Neuts (auto) Absolute Nucleated RBC Nucleated RBC % (auto) Anion Gap 17 Creatinine 3.97 H Estim Creat Clear Calc 11.6 Estimated GFR 11 POC Glucose 114 Random Glucose 118 H Calcium 9.0 D Phosphorus 3.5 Magnesium 2.3 Albumin 3.8 Assessment and Plan (1) End stage renal disease on dialysis: Status: Acute Plan 66F presented with sob, ams, required mechanical ventilation, after better bp control and fluid removed in HD, was able to be extubated, now on room air. metabolic encephalopathy and acute hypoxic respiratory failure due to hypertensive emergency and fluid overload/flash pulmonary edema in patient with ESRD now on room air continue HD continue clonidine, amlodipine, imdur nephro following ?DM mentioned in history, sugars appear normal, not on meds at home, check a1c copd/moderate persistent [place] stable opiate dependence suboxone dvt prophylaxis - hep sq full code reason for continued hospitalization: transitioning to oral meds for htn under close monitoring as patient admitted for hypertensive emergency and required intubation. Quality Stroke Does the patient have a stroke diagnosis?: No VTE Prior VTE?: No VTE Risk Level:: Medical - moderate - high VTE Device Contraindication: Treatment Not Indicated VTE Drug Contraindication: N/A - Med Ordered
[2021-10-16] MEDS: Heparin Sodium,Porcine 5,000 UNIT/ML VIAL 5000 UNIT SUBCUT ×2 (09:23→21:28)
[2021-10-16 09:38] LABS: Estimated Average Glucose 94 mg/dL; Hemoglobin A1c % 4.9 %
--- NOTE | 2021-10-16 17:53 | PM.PNNEP ---
Subjective Subjective Date of Service: 10/16/21 Interval history: Seen and examined, events noted Physical Exam Vital Signs: Vital Signs: Last Vital Signs Temp 98.8 F 10/16/21 16:00 Pulse 69 10/16/21 16:00 Resp 18 10/16/21 16:00 BP 152/78 H 10/16/21 16:00 Pulse Ox 96 10/16/21 16:00 BMI result Body Mass Index 25.9 HEENT: Head: Yes normocephalic Neck: Neck: Yes no JVD Resp: Auscultation: clear to auscultation bilaterally Cardio: Jugular venous distension: no JVD Rate: regular rate Rhythm: regular rhythm Heart sounds: S1 normal heart sound present and S2 normal heart sound present GI: Percussion: Yes normal to percussion Auscultation: normal bowel sounds Neuro: General: tone normal Extrem: General: Yes no clubbing, cyanosis or edema Objective Data Labs CBC & Chem 7: 10/16/21 05:15 10/16/21 05:15 Labs: Laboratory Results - last 24 hr 10/16/21 10/16/21 10/16/21 05:15 05:15 05:15 WBC 8.4 RBC 3.62 L Hgb 10.5 L Hct 31.8 L MCV 87.8 MCH 29.0 MCHC 33.0 RDW 14.1 Plt Count 216 MPV 9.3 L Immature Gran % (Auto) 0.6 H Neut % (Auto) 68.8 Lymph % (Auto) 16.9 L [place] % (Auto) 9.9 Eos % (Auto) 3.7 Baso % (Auto) 0.1 Lymph # (Auto) 1.4 [place] # (Auto) 0.8 Eos # (Auto) 0.3 Baso # (Auto) 0.0 Abs Immat Gran (auto) 0.05 H Absolute Neuts (auto) 5.8 Absolute Nucleated RBC 0.000 Nucleated RBC % (auto) 0.0 Sodium 131 L Potassium 4.1 Chloride 100 Carbon Dioxide 18 L Anion Gap 17 BUN 20 H Creatinine 3.97 H Estim Creat Clear Calc 11.6 Estimated GFR 11 POC Glucose Random Glucose 118 H Estimat Average Glucose 94 Hemoglobin A1c % 4.9 Calcium 9.0 D Phosphorus 3.5 Magnesium 2.3 Albumin 3.8 10/16/21 08:16 WBC RBC Hgb Hct MCV MCH MCHC RDW Plt Count MPV Immature Gran % (Auto) Neut % (Auto) Lymph % (Auto) [place] % (Auto) Eos % (Auto) Baso % (Auto) Lymph # (Auto) [place] # (Auto) Eos # (Auto) Baso # (Auto) Abs Immat Gran (auto) Absolute Neuts (auto) Absolute Nucleated RBC Nucleated RBC % (auto) Sodium Potassium Chloride Carbon Dioxide Anion Gap BUN Creatinine Estim Creat Clear Calc Estimated GFR POC Glucose 114 Random Glucose Estimat Average Glucose Hemoglobin A1c % Calcium Phosphorus Magnesium Albumin Microbiology Microbiology Results: Microbiology 10/12/21 23:54 Blood - Venous Blood Culture - Preliminary No growth after 48 hours. 10/12/21 23:55 Blood - Venous Blood Culture - Preliminary No growth after 48 hours. 10/12/21 23:51 Blood - Central Line Blood Culture - Final 10/12/21 23:51 Blood - Central Line Blood Culture - Final Procedures Date of Service Date of Service: 10/16/21 Assessment & Plan Assessment and plan (1) Flash pulmonary edema: Status: Acute (2) End stage renal disease on dialysis: Status: Acute Assessment and Plan: 66-year-old female with a past medical history of hypertension, hyperlipidemia, CAD, CHF, CKD/ ESRD on hemodialysis, asthma, anemia, history of anasarca, ascites; presented to the hospital with a chief complaint of shortness of breath. IMPRESSION: 1. End-stage renal disease. 2. Heart failure with preserved ejection fraction. 3. Anemia 4. Resp failure w flash pulm edema REC: track BPs,cont HD TTS; stress avoid salt in diet will follow w team ? Time Spent With Patient Time: Total time spent is greater than 50% in coordination of care (as documented) at patient's floor/unit and/or counseling patient: Progress Note: Quality Stroke Does the patient have a stroke diagnosis?: No
--- NOTE | 2021-10-16 17:59 | PC.NURSE ---
Addendum entered by Levi Hussein RN 10/16/21 18:21: Room air, breathing easily, telemetry NSR. Patient was transferred up to [id number] in the early afternoon, report to CELIO Lau. Original Note: Assumed care at 7:00. Patient arousable, [place] speaking, somewhat poor articulation, frequently groaning/moaning, drowsy, denies pain. Patient is able to follow commands and answers questions appropriately in [place]. Calm and compliant with care. Checked POC this AM, and was 114; patient had diabetic diet ordered, but no insulin or POCT glucose orders; discussed with MD, and new order for A1C. Patient moves all extremities, is weak, was OOB with 2 assist to commode yesterday, very drowsy after breakfast. Patient is easily arousable. Patient with high blood pressures; SBP was in 170's, has clonidine patch on left shoulder dated 10/14 that was to remain on per night nursing report, but patient also taking PO clonidine, amlodipine, Imdur; discussed with MD, and was considering making changes. Patient with SBP as high as 185 mm hg this morning before antihypertensives, but resolved after administration of scheduled medications and breakfast, before labetolol was required. TLC to right IJ, dialysis catheter to right upper chest. Thermometer Tester in to assess. Patient with no noted edema. Patient endorses that she is anuric lately. No HD today.
[2021-10-17 03:17] VITALS: BP 128/63; PULSE 57; RESP 18; TEMP 36.7; O2SAT 95
[2021-10-17 06:00] VITALS: BMI 26.2
[2021-10-17 07:38] VITALS: BP 152/67; PULSE 62; RESP 20; TEMP 36.8; O2SAT 100
[2021-10-17] MEDS: cloNIDine HCL 0.2 MG TABLET PO (10:00)
[2021-10-17] MEDS: Buprenorphine/Naloxone 8/2 mg FILM 1 FILM SUBLINGUAL (10:00)
[2021-10-17] MEDS: amLODIPine Besylate 10 MG TABLET PO (10:00)
[2021-10-17] MEDS: Heparin Sodium,Porcine 5,000 UNIT/ML VIAL 5000 UNIT SUBCUT (10:00)
[2021-10-17] MEDS: Isosorbide Mononitrate 30 MG TAB.ER.24H PO (10:01)
[2021-10-17 11:21] VITALS: BP 136/66; PULSE 63; RESP 20; TEMP 36.6; O2SAT 96
--- NOTE | 2021-10-17 11:27 | PM.DS ---
DS: Providers Provider Date of Service: 10/17/21 Date of admission: 10/12/21 23:06 Primary care physician: [facility] Consults: 10/13/21 00:05 Consult to Cardiology Routine Consulting Provider: Charan Hankins Reason for consultation: pulmonary edema Has provider been notified: Yes 10/13/21 06:05 Consult to Nephrology Routine Consulting Provider: Duke Buckner Reason for consultation: esrd/ dialysis Has provider been notified: No DS: Diagnosis Discharge Diagnosis (1) Flash pulmonary edema: Status: Acute (2) End stage renal disease on dialysis: Status: Acute DS: Summary Hospital Course Hospital Course: from initial hpi: Chief Complaint:? dyspnea The patient is a 66-year-old female with a past medical history of congestive heart failure, end-stage renal disease on hemodialysis (Sunday,,Sunday), diabetes? mellitus, hypertension,? asthma, anemia? and? polysubstance abuse on Suboxone? who was admitted? recently from 10/10/2021 until earlier today 10/12/21? for COPD exacerbation, anasarca due to CHF/end-stage renal disease. She presented again to the emergency room today via EMS? with complaints of worsening dyspnea.? According to EMS,? patient oxygenation at home was low 80s? and she was in severe respiratory distress.? Systolic blood pressures 220. ? She received? 1 dose of sublingual? nitroglycerin and was placed on CPAP EN route to hospital.? On arrival to the emergency room,? patient was in severe resp? distress,? pulse 105, resp rate 30s,? and BP 222/113. She was placed on BiPAP upon arrival? but later require emergent intubation? due to becoming more somnolent? and continuing with increased work of breathing.? Laboratory data? significant for:? WBC 23.4,? sodium 133, chloride 92, BUN 30, creatinine 5.70, AST 41, alk-phos 162, troponin sensitivity 787 and? BNP 8105.? EKG: Nonspecific T wave in Inferior/lateral leads IMAGING:? ?Chest x-ray:? with evidence of pulmonary? edema ? ED course:? patient received? 80 mg of Lasix, 0.5 of Ativan, nitroglycerin? topical 1inch,? 20 of hydralazine, azithromycin for high ceftriaxone 1 g,? and started on? heparin drip and nicardipine drip.? ? Patient will be admitted to? ICU for management of acute toxic respiratory failure from pulmonary edema? requiring ventilatory support hospital course: Patient was admitted for metabolic encephalopathy and acute hypoxic respiratory failure secondary to hypertensive emergency in fluid overload/flash pulmonary edema in a patient with end-stage renal disease. She was admitted to the intensive care unit and put on mechanical ventilation. She underwent hemodialysis and was given clonidine and labetalol with improvement in blood pressure and oxygenation. patient was unable to be extubated and quickly weaned off oxygen. Blood pressure became much better controlled. She was restarted on her oral medications. Compliance with blood pressure medications was stressed, risk for readmission remains high if patient not compliant with diet and meds. She is now back to baseline and will be discharged home. For her diabetes she will continue on insulin, for her COPD/moderate persistent asthma she will continue on albuterol as needed. For opiate dependence she will continue on Suboxone. Time Spent with Patient Time attestation: Total time spent providing and/or coordinating discharge services: Discharge coordination time: Greater than 30 minutes Quality: Safe Use of Opioids Does Pt have an Active Cancer Diagnosis on the Problem List?: No Quality: Stroke Does the patient have a stroke diagnosis?: No Physical Exam Vital Signs: Vital Signs: Last Vital Signs Temp 97.8 F 10/17/21 11:21 Pulse 63 10/17/21 11:21 Resp 20 10/17/21 11:21 BP 136/66 10/17/21 11:21 Pulse Ox 96 10/17/21 11:21 BMI result Body Mass Index 26.2 General: AO X 3, no acute distress Resp: CTA bilateral, no accessory muscles used CVS: S1,S2,RRR GI: soft, non tender, non distended Neuro: motor grossly intact, alert Psych: appropriate affect, appropriate insight DS: Data Data Completed and Pending Completed studies during hospitalization [Text1]: Procedures Assistance with Respiratory Ventilation, Less than 24 Consecutive Hours, Continuous Positive Airway Pressure (07/27/21) Excision of Left Kidney, Percutaneous Approach, Diagnostic (02/25/21) Excision of Right Kidney, Percutaneous Approach, Diagnostic (10/22/20) Insertion of Infusion Device into Superior Vena Cava, Percutaneous Approach (02/25/21) Insertion of Tunneled Vascular Access Device into Chest Subcutaneous Tissue and Fascia, Percutaneous Approach (02/25/21) Performance of Urinary Filtration, Intermittent, Less than 6 Hours Per Day (09/18/21) Transfusion of Nonautologous Red Blood Cells into Peripheral Vein, Percutaneous Approach (02/25/21) Labs on day of discharge: Preliminary micro results at discharge 10/12/21 23:54 Blood Culture - Preliminary Blood - Venous No growth after 48 hours. 10/12/21 23:55 Blood Culture - Preliminary Blood - Venous No growth after 48 hours. Discharge Plan Discharge Patient Disposition: Home, Self-Care Discharge Diagnosis: pulmonary edema, htn emergency Referrals: [place],[facility] [Primary Care Provider] - 1 Week Discharge Medications: Continued buprenorphine-naloxone [Suboxone] 8-2 mg film 1 strip sublingual BID 0RF diltiazem HCl 180 mg capsule,extended release 24hr 360 mg PO DAILY 0RF acetaminophen 500 mg Tablet 500 mg PO Q8H PRN (Reason: Pain, Mild) 0RF sevelamer carbonate 800 mg tablet 800 mg PO BIDWMEAL 0RF clonidine HCl 0.2 mg tablet 0.2 mg PO BID 0RF hydralazine 50 mg tablet 1 tab PO TID 0RF insulin aspart U-100 [Novolog PenFill U-100 Insulin] 100 unit/mL Cartridge 1 sliding scale dose SUBCUT USEASDIRECTD 0RF Protocol: Insulin Correction Scale Less than or equal to 110 ---- Give (units): 0 111 to 150 Give (units): 0 151 to 200 Give (units): 4 201 to 250 Give (units): 6 251 to 300 Give (units): 8 301 to 350 Give (units): 10 Greater than 350 Give (units): 12 Call MD if Blood Glucose > : 350 trazodone 100 mg tablet 1 - 2 tab PO BEDTIME PRN (Reason: Insomnia) 0RF polyethylene glycol 3350 [Miralax] 17 gram/dose powder 17 g PO DAILY 30 Days Qty: 510 0RF olanzapine 10 mg tablet 10 mg PO BEDTIME 0RF amlodipine 10 mg Tablet 10 mg PO BEDTIME Qty: 30 0RF Protocol: Hold for SBP< HOLD for SBP < : 90 Rx Instructions: replaces prior dose of 5 mg daily bumetanide 2 mg Tablet 2 mg PO DAILY 0RF pantoprazole 40 mg Tablet,Delayed Release (Dr/Ec) 40 mg PO DAILY 0RF melatonin 5 mg Tablet 5 mg PO BEDTIME PRN (Reason: Sleep) 0RF PRIMARY CARE MD-Sharifa Rx 1-60-300 mg-mg-mcg Tablet 1 tab PO DAILY 0RF Flovent HFA 110 mcg/actuation Hfa Aerosol Inhaler 1 puff INHALATION BID 0RF sennosides [senna] 8.6 mg tablet 1 - 2 tab PO BEDTIME PRN (Reason: constipation) 0RF Lantus U-100 Insulin 100 unit/mL solution 7 unit subcut DAILY 0RF isosorbide mononitrate 30 mg Tablet Extended Release 24 Hr 30 mg PO DAILY Qty: 30 0RF Protocol: Hold for SBP< HOLD for SBP < : 90 albuterol sulfate 2.5 mg /3 mL (0.083 %) solution for nebulization 3 ml inhalation TID PRN (Reason: Shortness Of Breath) 0RF aspirin 81 mg tablet,delayed release (DR/EC) 1 tab PO DAILY 0RF prednisone 20 mg tablet 40 mg PO DAILY Qty: 10 0RF Discharge Orders: Discharge Order (Routine); Ordered 10/17/21 Ordered By: Franck James Diet: advance to usual diet Activity on Discharge: As tolerated Stand Alone Forms: Patient Portal Discharge page Care Plan Goals: avoid episodes Health Concerns: poor compliance hypertension, Plan of Treatment: take meds as prescribed, follow up with hd Assessment: see above
--- NOTE | 2021-10-17 11:31 | MHC.CM.PN ---
PT TO DC HOME TODAY WITH NO NEW SERVICES FAMILY TO TRANSPORT
== END 2021-10-17 17:15 | disposition home or self-care (01) | DRG 280 ==
LOC: HO.ED 23:08 → HO.ICU 23:30 → HO.IMC 10-16 11:18
PROVIDERS: Registered Nurse Community Health; Admitting Provider Internal Medicine Pulmonary Disease; Emergency Provider Emergency Medicine; Visit Provider Internal Medicine
DX: I13.2 Hypertensive heart and chronic kidney disease with heart failure and with stage 5 chronic kidney disease, or end stage renal disease (principal); J96.01 Acute respiratory failure with hypoxia; I21.A1 Myocardial infarction type 2; N18.6 End stage renal disease; I50.33 Acute on chronic diastolic (congestive) heart failure; G93.41 Metabolic encephalopathy; F11.20 Opioid dependence, uncomplicated; N17.9 Acute kidney failure, unspecified; E87.1 Hypo-osmolality and hyponatremia; I16.0 Hypertensive urgency; Z99.2 Dependence on renal dialysis; D72.829 Elevated white blood cell count, unspecified; I25.10 Atherosclerotic heart disease of native coronary artery without angina pectoris; E78.5 Hyperlipidemia, unspecified; J44.9 Chronic obstructive pulmonary disease, unspecified; J45.40 Moderate persistent asthma, uncomplicated; D63.1 Anemia in chronic kidney disease; Z20.822 Contact with and (suspected) exposure to COVID-19; Z91.15 Patient's noncompliance with renal dialysis; Z56.0 Unemployment, unspecified; Z79.4 Long term (current) use of insulin; Z79.52 Long term (current) use of systemic steroids; Z79.82 Long term (current) use of aspirin; Z79.899 Other long term (current) drug therapy
CPT/HCPCS: 36415; 36600; 71045; 80048; 80053; 80076; 80307; 82040; 82803; 82947; 83036; 83605; 83735; 83880; 84100; 84484; 85025; 85610; 85730; 87040; 87635; 90999; 93005; 93308; 94002; 94003; 94660; 96365; 96375; 99285; 99291; 99292; J1940; J2060; J2250; J2543; J3010; J3370; P9047

== ENCOUNTER 2021-12-04 12:42 | Emergency (ER) | payer OTHER, SELFPAY ==
--- NOTE | ~2021-12-04 | CT_ITS ---
EXAMINATION: CT ABDOMEN AND PELVIS WITHOUT CONTRAST CLINICAL INFORMATION: Nausea and vomiting COMPARISON: Previous CT of the abdomen and pelvis most recent September 2021 TECHNIQUE: Multidetector volumetric imaging was performed from the superior aspect of the liver through the pubic symphysis. Sagittal and coronal reformatted images were obtained on the technologist's workstation. This CT examination was performed using dose optimization techniques as appropriate, variously including the following: *Automated exposure control *Adjustment of mA and/or kV according to patient size (this includes techniques or standardized protocols for targeted exams where dose is matched to indication/reason for exam; i.e. extremities or head) *Use of iterative reconstruction technique DLP: 436 mGy-cm FINDINGS: LUNG BASES: The visualized lung bases are unremarkable. LIVER, GALLBLADDER, AND BILIARY TREE: The liver is normal in size, shape, and attenuation. No focal hepatic lesion or biliary ductal dilatation is present. The gallbladder has been removed. PANCREAS: Unremarkable. SPLEEN: Unremarkable. ADRENAL GLANDS: Unremarkable. KIDNEYS AND URETERS: There is a 5 cm simple cyst in the upper pole of the left kidney. 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 This is unchanged. BLADDER: Not optimally distended. GASTROINTESTINAL TRACT: The proximal colon, the right colon and transverse colon, is dilated and filled with stool suggestive of constipation. The left colon does not appear as dilated for a stool filled. No transition zone is seen to suggest a mechanical obstruction Just severe constipation. Small and large bowel is otherwise unremarkable. The appendix is unremarkable. The stomach is unremarkable. ABDOMINAL WALL: There is diastasis of the rectus muscles. No hernia. LYMPH NODES: Normal. VASCULAR: There is evidence of atherosclerotic disease. 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 PELVIC VISCERA: Unremarkable. OSSEOUS STRUCTURES: There are degenerative changes of the spine. There is an L3 vertebral body compression fracture versus Schmorl's node. This is unchanged. CT/CT abdomen pelvis wo con IMPRESSION: Severe constipation and dilated proximal right and transverse colon. No transition zone is seen to suggest mechanical obstruction and this may represent severe constipation and obstipation. Follow-up recommended. 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 Fleischner guidelines were followed.
--- NOTE | ~2021-12-04 | CT_ITS ---
EXAMINATION: CT HEAD WITHOUT CONTRAST CLINICAL INFORMATION: Dizziness, nausea vomiting and weakness COMPARISON: Previous head CT June 2016 TECHNIQUE: Contiguous axial imaging was performed from the skull base to vertex without intravenous administration of contrast. This CT examination was performed using dose optimization techniques as appropriate, variously including the following: *Automated exposure control *Adjustment of mA and/or kV according to patient size (this includes techniques or standardized protocols for targeted exams where dose is matched to indication/reason for exam; i.e. extremities or head) *Use of iterative reconstruction technique DLP: 739 mGy-cm FINDINGS: There is no evidence of acute intracranial hemorrhage or territorial infarction. No abnormal mass effect or midline shift is seen. Treviño to white matter differentiation is well preserved. No extra-axial fluid collections are identified. The ventricles are normal in size. There is no abnormal attenuation within the brain parenchyma. The osseous structures and soft tissues are normal. There is mild inflammatory change in the maxillary and ethmoid sinuses. CT/CT head/brain wo con IMPRESSION: No acute intracranial findings. Mild sinus disease.
--- NOTE | ~2021-12-04 | CT_ITS ---
EXAMINATION: CT CHEST WITHOUT CONTRAST CLINICAL INFORMATION: Shortness of breath and wheezing COMPARISON: Previous chest x-ray most recent September [address] July 2021 TECHNIQUE: Multidetector volumetric CT imaging of the chest was done. Axial MIP volume rendering provided. Sagittal and coronal reformatted images were obtained. This CT examination was performed using dose optimization techniques as appropriate, variously including the following: *Automated exposure control *Adjustment of mA and/or kV according to patient size (this includes techniques or standardized protocols for targeted exams where dose is matched to indication/reason for exam; i.e. extremities or head) *Use of iterative reconstruction technique DLP: 224 mGy-cm FINDINGS: LUNGS: There is minimal subsegmental atelectasis in the right upper lobe. The lungs are otherwise clear. MEDIASTINUM: The heart is enlarged but stable. There is no pericardial effusion. The thoracic aorta is normal in caliber. There are small mediastinal lymph nodes. No enlarged lymph nodes are seen. There may be small thyroid nodules. There is a right dialysis catheter with tip at the cavoatrial junction. PLEURA: There is no pleural effusion. No pleural mass or thickening. AXILLA: No chest wall mass or enlarged axillary lymph nodes.. UPPER ABDOMEN: See abdominal and pelvic CT report from same day OSSEOUS STRUCTURES: There are degenerative changes of the spine. CT/CT chest wo con IMPRESSION: No evidence for acute disease in the chest. Minimal subsegmental atelectasis in the right upper lobe. Stable enlargement of the cardiac silhouette. Fleischner guidelines were followed.
[2021-12-04 13:02] VITALS: BP 146/92; BP 156/65; PULSE 62; PULSE 72; RESP 18; TEMP 37; O2SAT 100; O2SAT 95; BMI 27.0
--- NOTE | 2021-12-04 13:02 | ECG_ITS ---
Test Reason : dyspnea Blood Pressure : / mmHG Vent. Rate : 063 BPM Atrial Rate : 063 BPM P-R Int : 166 ms QRS Dur : 088 ms QT Int : 466 ms P-R-T Axes : 044 -12 021 degrees QTc Int : 476 ms Normal sinus rhythm Left atrial enlargement Left ventricular hypertrophy ( R in aVL , [place] product ) Nonspecific T wave abnormality Prolonged QT Abnormal ECG When compared with ECG of 15-OCT-2021 08:38, T wave inversion no longer evident in Inferior leads T wave inversion no longer evident in Anterolateral leads Referred By: Myah Somers Electronically Signed By:Charan Hankins
--- NOTE | 2021-12-04 13:05 | ED_ITS ---
HPI - Dizziness General Chief Complaint: Nausea/Vomiting/Diarrhea Stated Complaint: NAUSEA,HIGH BLOOD PRESSURE 146/92 PER EMS Time Seen by Provider: 12/04/21 12:52 Source: patient and EMS Mode of arrival: EMS Limitations: language barrier (Emirati-speaking) History of Present Illness HPI Narrative: 66-year-old female with a past medical history of CHF, end-stage renal disease on hemodialysis on Sunday//Saturdays reports she received hemodialysis yesterday although patient has a history of being noncompliant with dialysis, history of anasarca, ascites, diabetes mellitus type 2, hypertension, asthma, C OPD, anemia and polysubstance abuse on Suboxone who is Emirati-speaking and a poor historian presenting to the ED via EMS with complaints of dizziness feels like she is going to fall, nausea, vomiting 3 times all started yesterday. Also reports some left arm tingling although reports that this started approximately 2-3 days ago before the dizziness started and the nausea vomiting. She also reports some shortness of breath/wheezing. She denies any fevers, chills, headache, visual changes, jaw pain, neck pain/stiffness, chest pain, dyspnea on exertion, orthopnea, palpitations, abdominal pain, back pain, dysuria, hematuria, abnormal vaginal discharge, black or bloody stools, diarrhea constip ation, rashes, recent falls or trauma, recent sick contacts or others with similar symptoms or any other symptoms complaints or concerns at this time. - She has been admitted here multiple times in the past for end-stage renal disease/asthma exacerbation/COPD exacerbation/CHF with hypoxia last admission was 10/10/2021 until 10/17/2021. MD elicited complaint: dizziness Onset (ago): day(s) (2) Timing: gradual onset and constant Severity: moderate Description: lightheadedness History of similar symptoms: Yes Exacerbating factors: movement/ambulation and change in body position Relieving factors: nothing Associated symptoms: nausea, vomiting and other (Left arm paresthesias) Associated neuro symptoms: limb numbness Related Data Home Medications Medication Instructions Recorded Confirmed buprenorphine 8 mg-naloxone 2 mg 1 strip sublingual BID 10/22/20 10/12/21 sublingual film (Suboxone) diltiazem HCl 180 mg 360 mg PO DAILY 10/22/20 10/12/21 capsule,extended release 24 hr olanzapine 10 mg tablet 10 mg PO BEDTIME 02/25/21 10/12/21 bumetanide 2 mg tablet 2 mg PO DAILY 04/15/21 10/12/21 fluticasone propionate 110 1 puff inhalation BID 04/15/21 10/12/21 mcg/actuation HFA aerosol inhaler (Flovent HFA) melatonin 5 mg tablet 5 mg PO BEDTIME PRN Sleep 04/15/21 10/12/21 pantoprazole 40 mg tablet,delayed 40 mg PO DAILY 04/15/21 10/12/21 release vitamin B comp no.3-folic acid 1 1 tab PO DAILY 04/15/21 10/12/21 mg-vit C 60 mg-biotin 300 mcg tablet ([facility] TECHNICIAN[facility]) sennosides 8.6 mg tablet (senna) 1 - 2 tab PO BEDTIME PRN 05/11/21 10/12/21 constipation acetaminophen 500 mg tablet 500 mg PO Q8H PRN Pain, Mild 06/10/21 10/12/21 sevelamer carbonate 800 mg tablet 800 mg PO BIDWMEAL 06/10/21 10/12/21 clonidine HCl 0.2 mg tablet 0.2 mg PO BID 07/27/21 10/12/21 hydralazine 50 mg tablet 1 tab PO TID 07/27/21 10/12/21 insulin aspart U-100 100 unit/mL 1 sliding scale dose subcut 07/27/21 10/12/21 subcutaneous cartridge (Novolog USEASDIRECTD PenFill U-100 Insulin aspart) trazodone 100 mg tablet 1 - 2 tab PO BEDTIME PRN Insomnia 08/08/21 10/12/21 insulin glargine 100 unit/mL 7 unit subcut DAILY 09/18/21 10/12/21 subcutaneous solution (Lantus U-100 Insulin) albuterol sulfate 3 ml inhalation TID PRN Shortness 10/11/21 10/12/21 Of Breath aspirin 81 mg tablet,delayed 1 tab PO DAILY 10/11/21 10/12/21 release Previous Rx's Medication Instructions Recorded amlodipine 10 mg tablet 10 mg PO BEDTIME #30 tabs 03/07/21 polyethylene glycol 3350 17 17 g PO DAILY 30 days #510 grams 08/12/21 gram/dose oral powder (Miralax) isosorbide mononitrate 30 mg 30 mg PO DAILY #30 tabs 09/20/21 tablet,extended release 24 hr prednisone 20 mg tablet 40 mg PO DAILY #10 tabs 10/12/21 docusate sodium 100 mg capsule 100 mg PO BID PRN Constipation #30 12/04/21 (Colace) caps mineral oil (Fleet Mineral Oil) 118 ml AK DAILY PRN constipation 12/04/21 #133 mL ondansetron 4 mg disintegrating 4 mg PO Q6H PRN nausea and 12/04/21 tablet vomiting #30 tabs polyethylene glycol 3350 17 17 g PO DAILY Constipation #238 12/04/21 gram/dose oral powder (Miralax) grams Allergies Allergy/AdvReac Type Severity Reaction Status Date / Time No Known Allergies Allergy Mild NOT Verified 10/10/21 20:00 APPLICABLE Review of Systems Review of Systems: Constitutional : No Weight loss, No Fever, No Chills, No Night Sweats, No Fatigue, No Malaise ENT/Mouth : No Hearing loss, No Ear Pain, No Nasal Congestion, No Sinus Pain, No Hoarseness, No sore throat, No Rhinorrhea, No Swallowing Difficulty Eyes: No Eye Pain, No Swelling, No Redness, No Foreign Body, No Discharge, No Vision Changes Cardiovascular : No Chest Pain, + SOB, No Dyspnea on Exertion, No Orthopnea, No Edema, No Palpitations Respiratory : No Cough, No Sputum, + Wheezing, No Smoke Exposure, No Dyspnea Gastrointestinal : + Nausea, + Vomiting, No Diarrhea, No Constipation, No abdomi nal Pain, No Hematochezia, No Melena Genitourinary : no irregular bleeding, No Dysuria, No Urinary Frequency, No Hematuria, No Urinary Incontinence, No Urgency, No Flank Pain, No Urinary Flow Changes, No Hesitancy Musculoskeletal : No joint pain, No Myalgias, No Joint Swelling Skin : No Skin Lesions, No rash Neuro : No Weakness, + left arm Numbness, No Paresthesias, No Loss of Consciousness, + Dizziness, No Headache Psych : No Anxiety/Panic, No Depression, No SI/HI/AH/VH, No Social Issues, Heme/Lymph: No Bruising, No Bleeding,No Lymphadenopathy Endocrine : No Polyuria, No Polydipsia, No Temperature Intolerance Yes all other systems are reviewed and are negative [facility] Past Medical History Attestation statement: The following information was validated with the patient. Source: old records reviewed and nursing notes reviewed Medical History Abdominal pain Anasarca Anemia in chronic kidney disease Ascites Bilateral edema of lower extremity Constipation Diabetes mellitus End stage renal disease on dialysis Essential hypertension Heart failure with preserved ejection fraction HTN (hypertension) Non-compliance Surgical History No pertinent past surgical history Family History Family History Other Hypertension Social History Social History Household Members: None Housing: Apartment Do you presently have visiting nurse or other home services: Yes Alcohol intake: unknown Patient Tobacco Use Status: Current someday Tobacco user Tobacco use type: Cigarette Cigarette Packs Per Day: 1 Cigarettes Per Day: 5 Years Smoked: 18 e-Cigarette/Vaping Use: Never Used Second Hand Smoke Exposure: No Use of substances other than those prescribed or required for medical reasons: No Substance Use Type: Heroin Advance Directives: No Advance Directives Information Provided: Yes Advance Directives Date on File: 04/20/21 service: No Current occupational status: unemployed and disabled Physical Exam Vital Signs: Vital Signs: Last Vital Signs Temp 98.6 F 12/04/21 13:02 Pulse 61 12/04/21 13:50 Resp 18 12/04/21 13:50 BP 156/65 H 12/04/21 13:02 Pulse Ox 100 12/04/21 13:02 O2 Del Method 12/04/21 13:02 BMI result Body Mass Index 27.0 vital signs have been reviewed as normal and appeared to be correct. Blood pre ssure 165/65. Heart rate normal. Respiration rate normal. Temperature normal. Oxygen saturation normal. Appearance: Alert. Oriented X3. No acute distress. Head: Normal external exam. Normocephalic. Atraumatic. Eyes: PERRLA. EOMI. Conjunctiva and sclera normal. Eyelids normal. ENT: Pharynx normal. Uvula midline. Moist mucous membranes. No lesions/ulcerations or masses noted on the tongue. Normal voice. No trismus noted. No drooling noted. No muffled voice noted. Neck: Normal inspection. Neck supple. FROM. No adenopathy. Thyroid Normal. No tracheal deviation noted. No crepitus is noted. No meningeal signs. No neck mass noted. No signs of trauma noted. CVS: Normal heart rate and rhythm. Heart sound normal. Pulses normal throughout. No murmurs/rales/gallops. Respiratory: No respiratory distress. Painless inspiration. Breath sounds normal. Although patient noted to have wheezes diffusely. No rales/rhonchi noted. Chest nontender. No crepitus is noted. No signs of trauma noted. No accessory muscle usage noted or decreased air movement noted. Abdomen: Soft and nontender. Bowel sounds normal in all 4 quadrants. Appears distended. No organomegaly noted. No visible injury noted. Back: Full range of motion noted. Nontender. No signs of trauma. Patient neuro intact bilaterally and distally on all 4 extremities. Patient's reflexes intact bilaterally and distally on all 4 extremities. No rashes/lesion/induration/fluctuance or signs of infection noted. Skin: Skin warm and dry. Normal skin color. Normal skin turgor. No rashes/lesions/lacerations noted. Extremities: No lower extremity edema. No calf tenderness is noted. Extremit ies exhibit normal range of motion and nontender. Neuro: Oriented X 3. No motor deficit. No sensory deficit. Reflexes normal. Normal steady gait. No focal neuro deficits noted. CN's II-XII intact bilaterally? Vascular: + radial pulses/+ 2 distal pedal pulses/+2 dorsalis pedis b/l. Normal cap refill. No cyanosis noted to upper extremity nails and lower extremity toes nails. Course Course Course Narrative: 13pm - 66-year-old female c PMHx of CHF, end-stage renal disease on hemodialysis on (Sunday//Saturdays) reports she received hemodialysis yesterday, anasarca, ascites, DM II, HTN, asthma, COPD, anemia and polysubstance abuse on Suboxone who is Emirati-speaking/poor historian presenting to the ED via EMS with complaints of dizziness feels like she is going to fall c associated N/V x 2 days and 2-3 days of left arm tingling/numbness. She also reports some shortness of breath/wheezing. - Last admission was 10/10/2021 until 10/17/2021 for end-stage renal disease/asthma exacerbation/COPD exacerbation/CHF with hypoxia/hypertensive emergency/metabolic encephalopathy with fluid overload/pulmonary edema required mechanical ventilation. Plan: Labs, EKG, orthostatic vitals, CT scan brain without contrast, chest x- ray, EKG, COVID swab. Provide an hour long breathing treatment, 125 mg of IV Solu-Medrol and 2 g of magnesium and re-evaluate. Reevaluation(s) Reevaluation #1: - labs reviewed patient with mild baseline anemia similar compared to prior. Sodium 132 this is chronic. Creatinine 4.74 which is patient's baseline she has been worse in the past. She was dialyzed yesterday. Calcium 8.3. Alkaline phosphate 133 which is chronic. Troponin 43.1 this is also chronic patient usually worsened she denies any chest pain at this time. Total protein 6.3. Otherwise all other labs are within normal limits. Patient negative for COVID. - CT scan of brain negative for any acute processes only mild sinus disease otherwise chronic changes. - CT scan of chest revealed chronic changes no acute processes noted. 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 - patient reports she feels much better wants a prescription for Zofran. Therefore at this time I discussed this case with Dr. Bryant he reported that we both believe she does not need a repeat troponin due to she is not here for chest pain that she always has an elevated troponin and is improved when compared to priors. Patient now tolerating p.o. fluids. Will DC home with instructions follow-up with her PCP/electronic assembler and to have hemodialysis as scheduled on Sunday. Patient understands agrees with this plan Time: 15:44 [facility] - [facility] Medical Records Attestation: I reviewed the patient's medical records. Lab Data Attestation: I reviewed the patient's lab results. Result diagrams: 12/04/21 13:28 12/04/21 13:28 Labs: Lab Results 12/04/21 12/04/21 12/04/21 Range/Units 13:28 13:28 13:28 WBC 6.8 (4.8-10.8) X10*3/uL RBC 3.43 L (4.20-5.50) X10*6/uL Hgb 9.8 L (12.0-16.0) g/dl Hct 30.1 L (37.0-47.0) % MCV 87.8 (80.0-98.0) fL MCH 28.6 (27.0-33.0) pg MCHC 32.6 (31.0-35.0) g/dl RDW 16.2 H (11.0-16.0) % Plt Count 194 (160-400) X10*3/uL MPV 8.7 L (9.4-12.3) fL Immature Gran % (Auto) 0.4 (0.0-0.4) % Neut % (Auto) 73.1 H (45-73) % Lymph % (Auto) 15.7 L (20-40) % Shelby % (Auto) 8.7 (2-11) % Eos % (Auto) 1.8 (0-4) % Baso % (Auto) 0.3 (0-2) % Lymph # (Auto) 1.1 L (1.2-4.9) X10*3/uL Shelby # (Auto) 0.6 (0.1-1.2) X10*3/uL Eos # (Auto) 0.1 (0.0-0.4) X10*3/uL Baso # (Auto) 0.0 (0.0-0.2) X10*3/uL Abs Immat Gran (auto) 0.03 (0.00-0.03) X10*3/uL Absolute Neuts (auto) 5.0 (2.0-8.3) x10*3/uL Absolute Nucleated RBC 0.000 (0.0-0.012) X10*3/uL Nucleated RBC % (auto) 0.0 (0.0-0.2) /100WBC PT 9.6 L (10.0-13.1) SEC INR 0.8 L (0.9-1.1) Sodium 132 L (135-145) mmol/L Potassium 3.9 (3.3-5.1) mmol/L Chloride 96 (96-108) mmol/L Carbon Dioxide 26 (22-29) mmol/L Anion Gap 14 (12-20) BUN 15 (9-16) mg/dL Creatinine 4.74 H* (0.5-1.4) mg/dL Estim Creat Clear Calc 10.2 Estimated GFR 9 Random Glucose 102 (60-115) mg/dL Calcium 8.3 L D (8.4-10.2) mg/dL Magnesium 2.0 (1.6-2.6) mg/dL Total Bilirubin 0.4 (0.0-1.0) mg/dL AST 19 D (5-31) U/L ALT 10 (0-31) U/L Alkaline Phosphatase 133 H (39-117) U/L Troponin I High Sens (<3.5-17.0) ng/L Total Protein 6.3 L (6.5-8.0) g/dL Albumin 3.7 (3.5-5.0) g/dL Lipase 12 (8-78) U/L COVID-19 (KRYSTINA) (Negative) COVID-19 Clin Com 12/04/21 12/04/21 Range/Units 13:28 13:28 WBC (4.8-10.8) X10*3/uL RBC (4.20-5.50) X10*6/uL Hgb (12.0-16.0) g/dl Hct (37.0-47.0) % MCV (80.0-98.0) fL MCH (27.0-33.0) pg MCHC (31.0-35.0) g/dl RDW (11.0-16.0) % Plt Count (160-400) X10*3/uL MPV (9.4-12.3) fL Immature Gran % (Auto) (0.0-0.4) % Neut % (Auto) (45-73) % Lymph % (Auto) (20-40) % Shelby % (Auto) (2-11) % Eos % (Auto) (0-4) % Baso % (Auto) (0-2) % Lymph # (Auto) (1.2-4.9) X10*3/uL Shelby # (Auto) (0.1-1.2) X10*3/uL Eos # (Auto) (0.0-0.4) X10*3/uL Baso # (Auto) (0.0-0.2) X10*3/uL Abs Immat Gran (auto) (0.00-0.03) X10*3/uL Absolute Neuts (auto) (2.0-8.3) x10*3/uL Absolute Nucleated RBC (0.0-0.012) X10*3/uL Nucleated RBC % (auto) (0.0-0.2) /100WBC PT (10.0-13.1) SEC INR (0.9-1.1) Sodium (135-145) mmol/L Potassium (3.3-5.1) mmol/L Chloride (96-108) mmol/L Carbon Dioxide (22-29) mmol/L Anion Gap (12-20) BUN (9-16) mg/dL Creatinine (0.5-1.4) mg/dL Estim Creat Clear Calc Estimated GFR Random Glucose (60-115) mg/dL Calcium (8.4-10.2) mg/dL Magnesium (1.6-2.6) mg/dL Total Bilirubin (0.0-1.0) mg/dL AST (5-31) U/L ALT (0-31) U/L Alkaline Phosphatase (39-117) U/L Troponin I High Sens 43.1 H D (<3.5-17.0) ng/L Total Protein (6.5-8.0) g/dL Albumin (3.5-5.0) g/dL Lipase (8-78) U/L COVID-19 (KRYSTINA) Negative (Negative) COVID-19 Clin Com See Note Imaging Data CT scan of brain/cervical spine/abdomen pelvis without IV contrast: Attestation: I personally reviewed and interpreted this imaging study as follows: Radiologist's impression: FINDINGS: There is no evidence of acute intracranial hemorrhage or territorial infarction. No abnormal mass effect or midline shift is seen. Treviño to white matter differentiation is well preserved. No extra-axial fluid collections are identified. The ventricles are normal in size. There is no abnormal attenuation within the brain parenchyma. The osseous structures and soft tissues are normal. There is mild inflammatory change in the maxillary and ethmoid sinuses. ? CT/CT head/brain wo con IMPRESSION: No acute intracranial findings. Mild sinus disease. FINDINGS: LUNGS: There is minimal subsegmental atelectasis in the right upper lobe. The lungs are otherwise clear.? MEDIASTINUM: The heart is enlarged but stable. There is no pericardial effusion. The thoracic aorta is normal in caliber. There are small mediastinal lymph nodes. No enlarged lymph nodes are seen. There may be small thyroid nodules. There is a right dialysis catheter with tip at the cavoatrial junction.? PLEURA: There is no pleural effusion. No pleural mass or thickening.? AXILLA: No chest wall mass or enlarged axillary lymph nodes..? UPPER ABDOMEN: See abdominal and pelvic CT report from same day? OSSEOUS STRUCTURES: There are degenerative changes of the spine.? CT/CT chest wo con IMPRESSION: No evidence for acute disease in the chest. Minimal subsegmental atelectasis in the right upper lobe. Stable enlargement of the cardiac silhouette.? ? Fleischner guidelines were followed. FINDINGS: LUNG BASES: The visualized lung bases are unremarkable.? LIVER, GALLBLADDER, AND BILIARY TREE: The liver is normal in size, shape, and attenuation. No focal hepatic lesion or biliary ductal dilatation is present. The gallbladder has been removed.? PANCREAS: Unremarkable.? SPLEEN: Unremarkable.? ADRENAL GLANDS: Unremarkable.? KIDNEYS AND URETERS: There is a 5 cm simple cyst in the upper pole of the left kidney. 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 This is unchanged. BLADDER: Not optimally distended. GASTROINTESTINAL TRACT: The proximal colon, the right colon and transverse colon, is dilated and filled with stool suggestive of constipation. The left colon does not appear as dilated for a stool filled. No transition zone is seen to suggest a mechanical obstruction Just severe constipation. Small and large bowel is otherwise unremarkable. The appendix is unremarkable. The stomach is unremarkable. ABDOMINAL WALL: There is diastasis of the rectus muscles. No hernia.? LYMPH NODES: Normal. VASCULAR: There is evidence of atherosclerotic disease. 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 PELVIC VISCERA: Unremarkable.? OSSEOUS STRUCTURES: There are degenerative changes of the spine. There is an L3 vertebral body compression fracture versus Schmorl's node. This is unchanged. CT/CT abdomen pelvis wo con IMPRESSION: Severe constipation and dilated proximal right and transverse colon. No transition zone is seen to suggest mechanical obstruction and this may represent severe constipation and obstipation. Follow-up recommended. 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 ? Fleischner guidelines were followed. ECG Data Attestation: I personally reviewed and interpreted this ECG as follows: ECG interpretation date: 12/04/21 ECG interpretation time: 14:02 Interpretation: Normal sinus rhythm with ventricular rate of 63 with left atrial enlargement and LVH nonspecific ST abnormalities and prolonged QT 466 milliseconds otherwise no acute ischemic change are noted. And similar compared to prior EKGs. Critical Care Time Critical Care Time Critical Care Time: Yes Total Critical Care Time: 60 Attestation: I personally attest to this time spent taking care of the patient Discharge Plan Discharge Clinical Impression: Acute exacerbation of COPD with asthma, CKD (chronic kidney disease), Nausea & vomiting, Constipation Patient Disposition: Home, Self-Care Instructions: Constipation (ED) Prescriptions: New docusate sodium [Colace] 100 mg capsule 100 mg PO BID PRN (Reason: Constipation) Qty: 30 0RF mineral oil [Fleet Mineral Oil] Enema 118 ml AK DAILY PRN (Reason: constipation) Qty: 133 1RF Rx Instructions: discard any unused portion ondansetron 4 mg tablet,disintegrating 4 mg PO Q6H PRN (Reason: nausea and vomiting) Qty: 30 0RF polyethylene glycol 3350 [Miralax] 17 gram/dose powder 17 g PO DAILY Qty: 238 0RF No Action buprenorphine-naloxone [Suboxone] 8-2 mg film 1 strip sublingual BID diltiazem HCl 180 mg capsule,extended release 24hr 360 mg PO DAILY acetaminophen 500 mg Tablet 500 mg PO Q8H PRN (Reason: Pain, Mild) sevelamer carbonate 800 mg tablet 800 mg PO BIDWMEAL clonidine HCl 0.2 mg tablet 0.2 mg PO BID hydralazine 50 mg tablet 1 tab PO TID insulin aspart U-100 [Novolog PenFill U-100 Insulin] 100 unit/mL Cartridge 1 sliding scale dose SUBCUT USEASDIRECTD Protocol: Insulin Correction Scale Less than or equal to 110 ---- Give (units): 0 111 to 150 Give (units): 0 151 to 200 Give (units): 4 201 to 250 Give (units): 6 251 to 300 Give (units): 8 301 to 350 Give (units): 10 Greater than 350 Give (units): 12 Call MD if Blood Glucose > : 350 trazodone 100 mg tablet 1 - 2 tab PO BEDTIME PRN (Reason: Insomnia) polyethylene glycol 3350 [Miralax] 17 gram/dose powder 17 g PO DAILY 30 Days Qty: 510 0RF olanzapine 10 mg tablet 10 mg PO BEDTIME amlodipine 10 mg Tablet 10 mg PO BEDTIME Qty: 30 0RF Protocol: Hold for SBP< HOLD for SBP < : 90 Rx Instructions: replaces prior dose of 5 mg daily bumetanide 2 mg Tablet 2 mg PO DAILY pantoprazole 40 mg Tablet,Delayed Release (Dr/Ec) 40 mg PO DAILY melatonin 5 mg Tablet 5 mg PO BEDTIME PRN (Reason: Sleep) R AND D [facility] TECHNICIAN-[facility] Rx 1-60-300 mg-mg-mcg Tablet 1 tab PO DAILY Flovent HFA 110 mcg/actuation Hfa Aerosol Inhaler 1 puff INHALATION BID sennosides [senna] 8.6 mg tablet 1 - 2 tab PO BEDTIME PRN (Reason: constipation) Lantus U-100 Insulin 100 unit/mL solution 7 unit subcut DAILY isosorbide mononitrate 30 mg Tablet Extended Release 24 Hr 30 mg PO DAILY Qty: 30 0RF Protocol: Hold for SBP< HOLD for SBP < : 90 albuterol sulfate 2.5 mg /3 mL (0.083 %) solution for nebulization 3 ml inhalation TID PRN (Reason: Shortness Of Breath) aspirin 81 mg tablet,delayed release (DR/EC) 1 tab PO DAILY prednisone 20 mg tablet 40 mg PO DAILY Qty: 10 0RF Referrals: Sammy Vicente MD [Primary Care Provider] - 1 week Print Language: Emirati
[2021-12-04 13:34] LABS: MANUAL DIFF FLAG NO
[2021-12-04 13:36] LABS: Basophils Percent Auto 0.3 % (0-2); Eosinophils Absolute Auto 0.1 X10*3/uL (0.0-0.4); Eosinophils Percent Auto 1.8 % (0-4); Hematocrit 30.1 % (37.0-47.0); Hemoglobin 9.8 g/dl (12.0-16.0); Imm Gran Abs Auto 0.03 X10*3/uL (0.00-0.03); Imm Gran Pct Auto 0.4 % (0.0-0.4); Lymphocytes Absolute Auto 1.1 X10*3/uL (1.2-4.9); Lymphocytes Percent Auto 15.7 % (20-40); Mean Corpuscular HGB Conc 32.6 g/dl (31.0-35.0); Mean Corpuscular Hemoglobin 28.6 pg (27.0-33.0); Mean Corpuscular Volume 87.8 fL (80.0-98.0); Mean Platelet Volume 8.7 fL (9.4-12.3); Monocytes Absolute Auto 0.6 X10*3/uL (0.1-1.2); Monocytes Percent Auto 8.7 % (2-11); Neutrophils Percent Auto 73.1 % (45-73); Platelet Count 194 X10*3/uL (160-400); Red Blood Count 3.43 X10*6/uL (4.20-5.50); Red Cell Distribution Width 16.2 % (11.0-16.0); White Blood Count 6.8 X10*3/uL (4.8-10.8)
[2021-12-04 13:42] LABS: INTERNATIONAL NORM RATIO 0.8 (0.9-1.1); Prothrombin Time 9.6 SEC (10.0-13.1)
[2021-12-04] MEDS: Albuterol Sulfate (0.083%) 2.5 MG/3 ML VIAL.NEB 10 MG INHALE (13:46)
[2021-12-04 13:50] VITALS: PULSE 61; RESP 18; O2SAT 93
[2021-12-04 13:51] LABS: COVID-19 Test Negative (Negative); IDNOW Serial# 55D5AD1C
[2021-12-04 14:00] LABS: Troponin-I High Sensitivity 43.1 ng/L (<3.5-17.0)
[2021-12-04] MEDS: methylPREDNISolone Sod Succ 125 MG/2 ML VIAL IVPUSH (14:05)
[2021-12-04] MEDS: Magnesium Sulfate/H2O 2 GM/50 ML PIGGYBACK IV (14:06)
[2021-12-04 14:07] LABS: Alanine Aminotransferase 10 U/L (0-31); Albumin Level 3.7 g/dL (3.5-5.0); Alkaline Phosphatase 133 U/L (39-117); Anion Gap 14 (12-20); Aspartate Amino Transferase 19 U/L (5-31); Bilirubin Total 0.4 mg/dL (0.0-1.0); Blood Urea Nitrogen 15 mg/dL (9-16); Calcium 8.3 mg/dL (8.4-10.2); Carbon Dioxide 26 mmol/L (22-29); Chloride 96 mmol/L (96-108); Creatinine Clr Calc Pharmacy 10.2; Estimated Glomerular Filt Rate 9; Glucose Random 102 mg/dL (60-115); Lipase 12 U/L (8-78); Potassium 3.9 mmol/L (3.3-5.1); Sodium 132 mmol/L (135-145); Total Protein 6.3 g/dL (6.5-8.0)
--- NOTE | 2021-12-04 17:55 | PC.NURSE ---
took over care of pt at 1500 - pt ready for discharge, attempted to contact SAHARA Spaulding at [facility] on voicemail, called son and left voicemail.
== END 2021-12-04 18:43 | disposition home or self-care (01) ==
PROVIDERS: Physician Assistant Medical; Emergency Provider Emergency Medicine; PCP Internal Medicine
DX: J44.1 Chronic obstructive pulmonary disease with (acute) exacerbation (principal); R42 Dizziness and giddiness; K59.00 Constipation, unspecified; R11.2 Nausea with vomiting, unspecified; R20.2 Paresthesia of skin; E11.9 Type 2 diabetes mellitus without complications; I10 Essential (primary) hypertension; F17.210 Nicotine dependence, cigarettes, uncomplicated; Z20.822 Contact with and (suspected) exposure to COVID-19; Z79.899 Other long term (current) drug therapy; Z79.4 Long term (current) use of insulin; Z71.6 Tobacco abuse counseling; Z99.2 Dependence on renal dialysis
CPT/HCPCS: 36415; 70450; 71250; 74176; 80053; 83690; 83735; 84484; 85025; 85610; 87635; 93005; 94640; 96365; 96375; 99285; J2930; J3475

== ENCOUNTER 2022-01-30 18:15 | Inpatient (IN) | payer OTHER, SELFPAY ==
[2022-01-30] VITALS (16 sets, daily range): BP systolic 179–229; BP diastolic 77–100; PULSE 79–113; RESP 16–35; TEMP 35.4–36.6; O2SAT 92–99; BMI 26.0
--- NOTE | 2022-01-30 | ECG_ITS ---
Test Reason : CHEST PAIN Blood Pressure : / mmHG Vent. Rate : 111 BPM Atrial Rate : 111 BPM P-R Int : 170 ms QRS Dur : 086 ms QT Int : 344 ms P-R-T Axes : 072 -10 069 degrees QTc Int : 467 ms Poor data quality, interpretation may be adversely affected Sinus tachycardia Left atrial enlargement Left ventricular hypertrophy ( Jona product ) Abnormal ECG When compared with ECG of 04-DEC-2021 14:02, Vent. rate has increased BY 48 BPM Nonspecific T wave abnormality, improved in Lateral leads Referred By: Generic ED Physician Electronically Signed By:PRICE CARRILLO
--- NOTE | ~2022-01-30 | XR_ITS ---
EXAMINATION: PORTABLE CHEST 1 VIEW CLINICAL INFORMATION: chest pain . COMPARISON: 10/12/2021. TECHNIQUE: Portable frontal view of the chest was obtained. FINDINGS: Lungs are mildly hypoexpanded. Coarsened reticular markings are again seen bilaterally. Minimal blunting of the costophrenic angles could represent tiny effusions with some mild basilar atelectasis. No overt edema or pneumothorax. Cardiac silhouette is prominent but unchanged. Vascular calcification in aorta. Right IJ dialysis catheter tip overlying the mid right atrium. Chronic appearing changes to the shoulders and spine. XR/XR chest 1V IMPRESSION: Chronic appearing coarsened reticular markings and tiny effusions. No overt edema.
--- NOTE | ~2022-01-30 | CT_ITS ---
EXAMINATION: CT ABDOMEN AND PELVIS WITHOUT CONTRAST CLINICAL INFORMATION: Left lower quadrant abdominal pain COMPARISON: 12/04/2021 TECHNIQUE: Multidetector volumetric imaging was performed from the lung bases through the pubic symphysis. Sagittal and coronal reformatted images were obtained on the technologist workstation. This CT examination was performed using dose optimization techniques as appropriate, variously including the following: *Automated exposure control *Adjustment of mA and/or kV according to patient size (this includes techniques or standardized protocols for targeted exams where dose is matched to indication/reason for exam; i.e. extremities or head) *Use of iterative reconstruction technique FINDINGS: The lack of intravenous contrast limits evaluation of the solid visceral organs including the liver, spleen, pancreas, and kidneys. LUNG BASES: New small right, trace left pleural effusions. New/worsened patchy bibasilar airspace opacities. There is mosaic lung attenuation with areas of groundglass opacity, and likely some degree of air trapping. Persistent cardiomegaly. Trace pericardial effusion. LIVER, GALLBLADDER, AND BILIARY TREE: The liver is enlarged but no gross focal lesion is seen. Status post cholecystectomy. PANCREAS: Diffuse pancreatic atrophy. No pancreatic mass. There may be peripancreatic fluid and fat stranding although this may simply be due to motion. SPLEEN: Limited non-contrast evaluation is normal. ADRENAL GLANDS: There is prominence of both adrenal glands but no mass seen. KIDNEYS AND URETERS: Simple water density left upper pole renal cyst for which no imaging follow-up is recommended. No hydronephrosis or calculi. GASTROINTESTINAL TRACT: Stomach and small bowel are nondilated. There is a large volume of stool throughout the tortuous colon. Constipation could give this appearance. It is difficult to exclude wall thickening or pericolonic fat stranding due to significant patient motion but none is seen. ABDOMINAL WALL: There is fluid and fat stranding involving the lateral aspects of the hips and buttocks bilaterally, left greater than right, worsened from the prior. LYMPH NODES: Numerous prominent but not pathologically enlarged retroperitoneal lymph nodes are present. VASCULAR: Circumferential calcified atherosclerotic changes of the normal caliber aorta. BLADDER: Unremarkable. PELVIC VISCERA: Unremarkable. OSSEOUS STRUCTURES: There is superior endplate compression deformity of L3, unchanged. CT/CT abdomen pelvis wo IV con IMPRESSION: Study is significantly limited by motion artifact. Large volume stool throughout the colon suggest constipation. There may be fat stranding adjacent the pancreas vs. Motion artifact. Consider correlation with serum enzymes. New small right, trace left pleural effusions. New/worsened patchy bibasilar airspace opacities. There is mosaic lung attenuation with areas of groundglass opacity, and likely some degree of air trapping. Persistent cardiomegaly. Trace pericardial effusion.
--- NOTE | ~2022-01-30 | XR_ITS ---
EXAMINATION: PORTABLE CHEST 1 VIEW CLINICAL INFORMATION: sob . COMPARISON: 01/30/2022 earlier today. TECHNIQUE: Portable frontal view of the chest was obtained. FINDINGS: There is worsening interstitial and central vascular markings when compared to earlier the seton. Blunting the right costophrenic angle suggests tiny right-sided effusion. No pneumothorax. Cardiac silhouette remains prominent with vascular calcification in aorta. Right IJ dialysis catheter tip overlying the mid right atrium. Degenerative changes in the spine and shoulders. XR/XR chest 1V IMPRESSION: Worsening increased interstitial markings and vascular prominence suggesting fluid overload/pulmonary edema when compared to earlier today.
--- NOTE | ~2022-01-30 | XR_ITS ---
EXAMINATION: XR CHEST CLINICAL INFORMATION: Triple-lumen catheter insertion COMPARISON: 01/30/2022 TECHNIQUE: Frontal view of the chest was obtained. FINDINGS: Left internal jugular central venous catheter terminates over the mid SVC. Right-sided central venous catheter terminates over the right atrium, unchanged. Cardiac leads overlie the chest. Lung volumes are low. Increased retrocardiac opacity. No pneumothorax. Possible small pleural effusions. Decreased interstitial prominence. The cardiomediastinal silhouette is unchanged, with a calcified aorta. XR/XR chest 1V IMPRESSION: Left internal jugular central venous catheter terminates over the mid SVC. No pneumothorax. Increased retrocardiac opacity favors atelectasis. Decreased interstitial prominence. Small pleural effusions.
--- NOTE | 2022-01-30 18:35 | ED.GENADULT ---
HPI - General Adult General Chief complaint: Dyspnea Stated complaint: WEAK,FALL,SOB 15 LPM NRB,CP Time Seen by Provider: 01/30/22 18:29 Source: patient and EMS Limitations: altered mental status History of Present Illness HPI narrative: Patient with a history of end-stage renal disease on dialysis Sunday, presenting with chest pain and acute shortness of breath. Found by EMS to be extremely dyspneic but somewhat lethargic. She is Scottish-speaking only and there were unable it obtain much of a history. Review of old records shows that she has a history of asthma exacerbations as well as visits for pulmonary edema after dialysis noncompliance. She has been intubated in the past for this. She complains of pain in her chest especially when breathing. No recent illnesses. She is unable to tell me if she went to her last dialysis. Related Data Home Medications Medication Instructions Recorded Confirmed buprenorphine 8 mg-naloxone 2 mg 1 strip sublingual BID 10/22/20 10/12/21 sublingual film (Suboxone) diltiazem HCl 180 mg 360 mg PO DAILY 10/22/20 10/12/21 capsule,extended release 24 hr bumetanide 2 mg tablet 2 mg PO DAILY 04/15/21 10/12/21 fluticasone propionate 110 1 puff inhalation BID 04/15/21 10/12/21 mcg/actuation HFA aerosol inhaler (Flovent HFA) melatonin 5 mg tablet 5 mg PO BEDTIME PRN Sleep 04/15/21 10/12/21 pantoprazole 40 mg tablet,delayed 40 mg PO DAILY 04/15/21 10/12/21 release vitamin B comp no.3-folic acid 1 1 tab PO DAILY 04/15/21 10/12/21 mg-vit C 60 mg-biotin 300 mcg tablet ([employer]) sennosides 8.6 mg tablet (senna) 1 - 2 tab PO BEDTIME PRN 05/11/21 10/12/21 constipation acetaminophen 500 mg tablet 500 mg PO Q8H PRN Pain, Mild 06/10/21 10/12/21 sevelamer carbonate 800 mg tablet 800 mg PO BIDWMEAL 06/10/21 10/12/21 clonidine HCl 0.2 mg tablet 0.2 mg PO BID 07/27/21 10/12/21 hydralazine 50 mg tablet 1 tab PO TID 07/27/21 10/12/21 insulin aspart U-100 100 unit/mL 1 sliding scale dose subcut 07/27/21 10/12/21 subcutaneous cartridge (Novolog USEASDIRECTD PenFill U-100 Insulin aspart) trazodone 100 mg tablet 1 - 2 tab PO BEDTIME PRN Insomnia 08/08/21 10/12/21 insulin glargine 100 unit/mL 7 unit subcut DAILY 09/18/21 10/12/21 subcutaneous solution (Lantus U-100 Insulin) albuterol sulfate 2.5 mg/3 mL 3 ml inhalation TID PRN Shortness 10/11/21 10/12/21 (0.083 %) solution for nebulization Of Breath aspirin 81 mg tablet,delayed 1 tab PO DAILY 10/11/21 10/12/21 release albuterol sulfate 90 mcg/actuation 2 puff inhalation Q4-6H PRN 01/31/22 aerosol inhaler (Ventolin HFA) wheezing nicotine 14 mg/24 hr daily topical 01/31/22 transdermal patch olanzapine 5 mg tablet 1 tab PO BEDTIME 01/31/22 Previous Rx's Medication Instructions Recorded amlodipine 10 mg tablet 10 mg PO BEDTIME #30 tabs 03/07/21 polyethylene glycol 3350 17 17 g PO DAILY 30 days #510 grams 08/12/21 gram/dose oral powder (Miralax) isosorbide mononitrate 30 mg 30 mg PO DAILY #30 tabs 09/20/21 tablet,extended release 24 hr docusate sodium 100 mg capsule 100 mg PO BID PRN Constipation #30 12/04/21 (Colace) caps ondansetron 4 mg disintegrating 4 mg PO Q6H PRN nausea and 12/04/21 tablet vomiting #30 tabs Allergies Allergy/AdvReac Type Severity Reaction Status Date / Time No Known Allergies Allergy Mild NOT Verified 10/10/21 20:00 APPLICABLE Review of Systems Review of Systems: Unable to obtain review of systems [facility] Past Medical History Medical History Abdominal pain Anasarca Anemia in chronic kidney disease Ascites Bilateral edema of lower extremity Constipation Diabetes mellitus End stage renal disease on dialysis Essential hypertension Heart failure with preserved ejection fraction HTN (hypertension) Non-compliance Surgical History No pertinent past surgical history Family History Family History Other Hypertension Social History Social History Household Members: None Housing: Apartment Do you presently have visiting nurse or other home services: Yes Alcohol intake: unknown Patient Tobacco Use Status: Current someday Tobacco user Tobacco use type: Cigarette Cigarette Packs Per Day: 1 Cigarettes Per Day: 5 Years Smoked: 18 e-Cigarette/Vaping Use: Never Used Second Hand Smoke Exposure: No Substance Use Type: Heroin Advance Directives: No Advance Directives Information Provided: No Advance Directives Date on File: 04/20/21 service: No Current occupational status: unemployed and disabled Physical Exam ED Vital Signs: Vital Signs - 24 hr 01/30/22 18:27 01/30/22 18:33 01/30/22 18:37 Temperature Pulse Rate 112 H 108 H Respiratory Rate 30 H 30 H 24 H Blood Pressure 229/98 H Pulse Oximetry 94 Oxygen Delivery Method BiPAP Fraction of Inspired Oxygen 35 01/30/22 18:57 01/30/22 19:55 01/30/22 20:08 Temperature 95.8 F L 97.8 F Pulse Rate 93 91 Respiratory Rate 16 Blood Pressure 179/82 H 181/81 H Pulse Oximetry 99 Oxygen Delivery Method BiPAP Fraction of Inspired Oxygen 28 01/30/22 21:19 01/30/22 21:34 01/30/22 21:36 Temperature Pulse Rate 91 Respiratory Rate 26 H 35 H 31 H Blood Pressure Pulse Oximetry Oxygen Delivery Method Fraction of Inspired Oxygen 01/30/22 22:00 01/30/22 22:15 Temperature 97.8 F Pulse Rate 85 86 Respiratory Rate 20 26 H Blood Pressure 189/81 H Pulse Oximetry 95 96 Oxygen Delivery Method BiPAP BiPAP Fraction of Inspired Oxygen 40 BMI result Body Mass Index 26.0 Const Other: Awake but appears in acute respiratory distress. Unable to speak in full sentences. Neck Other: Positive JVD Chest Other: Dialysis catheter is in place on the right subclavian area. No surrounding obvious erythema outside the bandages Resp Other: Bilateral wheezing without obvious rales. Fair air entry significant increased work of breathing Skin Other: Warm and dry without obvious rash Neuro Other: Nonfocal but patient is agitated Course Course Course Narrative: Respiratory distress and failure secondary to asthma exacerbation and possible fluid overload. Rule out STEMI Pneumonia BiPAP started emergency department 10 mg of albuterol Solu-Medrol IV Fentanyl for work of breathing 19:44. Patient is feeling much more comfortable at this time and would like to try a trial without BiPAP. Her blood pressure was initially extremely elevated to 229/98 but has spontaneously come down to approximately 180/90. Will treat with a dose of labetalol to ensure it stays down after we removed the BiPAP which may be helping her blood pressure. Her lab work shows a venous blood gas with a pH of 7.27 but other values are within normal limits. Her troponin is currently 160. But looking at chronic values it seems to range between 30 and approximately 780. I will order a repeat troponin to check for a significant delta. Chest x-ray shows no overt fluid overload or new infiltrates or evidence of pneumonia or infectious process. 20:52. On re-evaluation patient is much more comfortable on room air oxygen. Her only complaint now is left lower quadrant abdominal pain which he states started yesterday and she has never had before in her life. She states she has been on a bleed for 2 days because of this. I will add on a CT of the abdomen. Will sign out at 21:00 pending results 21:18. Patient now with extreme shortness of breath, very similar to when she arrived. Placed back on BiPAP and will treat again with 10 mg of albuterol. Fentanyl for anxiolysis. Signed out to Dr Bai pending re-evaluation and repeat x ray and CT Abd results Medical Decision Making Lab Data Result diagrams: 01/30/22 18:29 01/30/22 18:30 Labs: Lab Results 01/30/22 01/30/22 01/30/22 Range/Units 18:24 18:29 18:29 WBC 14.1 H (4.8-10.8) X10*3/uL RBC 4.06 L (4.20-5.50) X10*6/uL Hgb 12.1 D (12.0-16.0) g/dl Hct 35.9 L (37.0-47.0) % MCV 88.4 (80.0-98.0) fL MCH 29.8 (27.0-33.0) pg MCHC 33.7 (31.0-35.0) g/dl RDW 15.9 (11.0-16.0) % Plt Count 247 D (160-400) X10*3/uL MPV 9.0 L (9.4-12.3) fL Immature Gran % (Auto) 1.2 H (0.0-0.4) % Neut % (Auto) 84.0 H (45-73) % Lymph % (Auto) 9.5 L (20-40) % [place] % (Auto) 4.6 (2-11) % Eos % (Auto) 0.4 (0-4) % Baso % (Auto) 0.3 (0-2) % Lymph # (Auto) 1.3 (1.2-4.9) X10*3/uL [place] # (Auto) 0.7 (0.1-1.2) X10*3/uL Eos # (Auto) 0.1 (0.0-0.4) X10*3/uL Baso # (Auto) 0.0 (0.0-0.2) X10*3/uL Abs Immat Gran (auto) 0.17 H (0.00-0.03) X10*3/uL Absolute Neuts (auto) 11.8 H (2.0-8.3) x10*3/uL Absolute Nucleated RBC 0.000 (0.0-0.012) X10*3/uL Nucleated RBC % (auto) 0.0 (0.0-0.2) /100WBC PT 9.9 L (10.0-13.1) SEC INR 0.9 (0.9-1.1) D-Dimer High Sensitivty 915 NG/ML VBG pH (7.32-7.43) VBG pCO2 mmHg VBG pO2 mmHg VBG HCO3 (22-26) mmol/L VBG O2 Saturation % VBG Base Excess mmol/L Sodium (135-145) mmol/L Potassium (3.3-5.1) mmol/L Chloride (96-108) mmol/L Carbon Dioxide (22-29) mmol/L Anion Gap (12-20) BUN (9-16) mg/dL Creatinine (0.5-1.4) mg/dL Estim Creat Clear Calc Estimated GFR POC Glucose 213 H (60-115) mg/dL Random Glucose (60-115) mg/dL Lactic Acid (0.5-2.0) mmol/L Calcium (8.4-10.2) mg/dL Total Bilirubin (0.0-1.0) mg/dL AST (5-31) U/L ALT (0-31) U/L Alkaline Phosphatase (39-117) U/L Troponin I High Sens (<3.5-17.0) ng/L B-Natriuretic Peptide (<100) pg/mL Total Protein (6.5-8.0) g/dL Albumin (3.5-5.0) g/dL SARS-CoV-2 (PCR) Influenza Type A (PCR) (Negative) Influenza Type B (PCR) (Negative) RSV RNA Qual (PCR) (Negative) SARS-CoV-2 RNA (RT-PCR) (Negative) 01/30/22 01/30/22 01/30/22 Range/Units 18:29 18:29 18:30 WBC (4.8-10.8) X10*3/uL RBC (4.20-5.50) X10*6/uL Hgb (12.0-16.0) g/dl Hct (37.0-47.0) % MCV (80.0-98.0) fL MCH (27.0-33.0) pg MCHC (31.0-35.0) g/dl RDW (11.0-16.0) % Plt Count (160-400) X10*3/uL MPV (9.4-12.3) fL Immature Gran % (Auto) (0.0-0.4) % Neut % (Auto) (45-73) % Lymph % (Auto) (20-40) % [place] % (Auto) (2-11) % Eos % (Auto) (0-4) % Baso % (Auto) (0-2) % Lymph # (Auto) (1.2-4.9) X10*3/uL [place] # (Auto) (0.1-1.2) X10*3/uL Eos # (Auto) (0.0-0.4) X10*3/uL Baso # (Auto) (0.0-0.2) X10*3/uL Abs Immat Gran (auto) (0.00-0.03) X10*3/uL Absolute Neuts (auto) (2.0-8.3) x10*3/uL Absolute Nucleated RBC (0.0-0.012) X10*3/uL Nucleated RBC % (auto) (0.0-0.2) /100WBC PT (10.0-13.1) SEC INR (0.9-1.1) D-Dimer High Sensitivty NG/ML VBG pH (7.32-7.43) VBG pCO2 mmHg VBG pO2 mmHg VBG HCO3 (22-26) mmol/L VBG O2 Saturation % VBG Base Excess mmol/L Sodium 131 L (135-145) mmol/L Potassium 4.7 D (3.3-5.1) mmol/L Chloride 92 L (96-108) mmol/L Carbon Dioxide 20 L (22-29) mmol/L Anion Gap 24 H (12-20) BUN 29 H D (9-16) mg/dL Creatinine 6.88 H* (0.5-1.4) mg/dL Estim Creat Clear Calc 7.1 Estimated GFR 6 POC Glucose (60-115) mg/dL Random Glucose 226 H (60-115) mg/dL Lactic Acid 1.5 (0.5-2.0) mmol/L Calcium 9.1 D (8.4-10.2) mg/dL Total Bilirubin 0.7 (0.0-1.0) mg/dL AST 52 H (5-31) U/L ALT 19 (0-31) U/L Alkaline Phosphatase 195 H D (39-117) U/L Troponin I High Sens 160.8 H* D (<3.5-17.0) ng/L B-Natriuretic Peptide 4793 H (<100) pg/mL Total Protein 7.9 D (6.5-8.0) g/dL Albumin 4.3 (3.5-5.0) g/dL SARS-CoV-2 (PCR) Influenza Type A (PCR) (Negative) Influenza Type B (PCR) (Negative) RSV RNA Qual (PCR) (Negative) SARS-CoV-2 RNA (RT-PCR) (Negative) 0901/30/22 01/30/22 Range/Units 18:36 18:57 18:57 WBC (4.8-10.8) X10*3/uL RBC (4.20-5.50) X10*6/uL Hgb (12.0-16.0) g/dl Hct (37.0-47.0) % MCV (80.0-98.0) fL MCH (27.0-33.0) pg MCHC (31.0-35.0) g/dl RDW (11.0-16.0) % Plt Count (160-400) X10*3/uL MPV (9.4-12.3) fL Immature Gran % (Auto) (0.0-0.4) % Neut % (Auto) (45-73) % Lymph % (Auto) (20-40) % [place] % (Auto) (2-11) % Eos % (Auto) (0-4) % Baso % (Auto) (0-2) % Lymph # (Auto) (1.2-4.9) X10*3/uL [place] # (Auto) (0.1-1.2) X10*3/uL Eos # (Auto) (0.0-0.4) X10*3/uL Baso # (Auto) (0.0-0.2) X10*3/uL Abs Immat Gran (auto) (0.00-0.03) X10*3/uL Absolute Neuts (auto) (2.0-8.3) x10*3/uL Absolute Nucleated RBC (0.0-0.012) X10*3/uL Nucleated RBC % (auto) (0.0-0.2) /100WBC PT (10.0-13.1) SEC INR (0.9-1.1) D-Dimer High Sensitivty NG/ML VBG pH 7.27 L (7.32-7.43) VBG pCO2 49 mmHg VBG pO2 167 mmHg VBG HCO3 23 (22-26) mmol/L VBG O2 Saturation 99.0 % VBG Base Excess -4.1 mmol/L Sodium (135-145) mmol/L Potassium (3.3-5.1) mmol/L Chloride (96-108) mmol/L Carbon Dioxide (22-29) mmol/L Anion Gap (12-20) BUN (9-16) mg/dL Creatinine (0.5-1.4) mg/dL Estim Creat Clear Calc Estimated GFR POC Glucose (60-115) mg/dL Random Glucose (60-115) mg/dL Lactic Acid (0.5-2.0) mmol/L Calcium (8.4-10.2) mg/dL Total Bilirubin (0.0-1.0) mg/dL AST (5-31) U/L ALT (0-31) U/L Alkaline Phosphatase (39-117) U/L Troponin I High Sens (<3.5-17.0) ng/L B-Natriuretic Peptide (<100) pg/mL Total Protein (6.5-8.0) g/dL Albumin (3.5-5.0) g/dL SARS-CoV-2 (PCR) Cancelled Influenza Type A (PCR) NEGATIVE (Negative) Influenza Type B (PCR) NEGATIVE (Negative) RSV RNA Qual (PCR) NEGATIVE (Negative) SARS-CoV-2 RNA (RT-PCR) NEGATIVE (Negative) 01/30/22 Range/Units 19:54 WBC (4.8-10.8) X10*3/uL RBC (4.20-5.50) X10*6/uL Hgb (12.0-16.0) g/dl Hct (37.0-47.0) % MCV (80.0-98.0) fL MCH (27.0-33.0) pg MCHC (31.0-35.0) g/dl RDW (11.0-16.0) % Plt Count (160-400) X10*3/uL MPV (9.4-12.3) fL Immature Gran % (Auto) (0.0-0.4) % Neut % (Auto) (45-73) % Lymph % (Auto) (20-40) % [place] % (Auto) (2-11) % Eos % (Auto) (0-4) % Baso % (Auto) (0-2) % Lymph # (Auto) (1.2-4.9) X10*3/uL [place] # (Auto) (0.1-1.2) X10*3/uL Eos # (Auto) (0.0-0.4) X10*3/uL Baso # (Auto) (0.0-0.2) X10*3/uL Abs Immat Gran (auto) (0.00-0.03) X10*3/uL Absolute Neuts (auto) (2.0-8.3) x10*3/uL Absolute Nucleated RBC (0.0-0.012) X10*3/uL Nucleated RBC % (auto) (0.0-0.2) /100WBC PT (10.0-13.1) SEC INR (0.9-1.1) D-Dimer High Sensitivty NG/ML VBG pH (7.32-7.43) VBG pCO2 mmHg VBG pO2 mmHg VBG HCO3 (22-26) mmol/L VBG O2 Saturation % VBG Base Excess mmol/L Sodium (135-145) mmol/L Potassium (3.3-5.1) mmol/L Chloride (96-108) mmol/L Carbon Dioxide (22-29) mmol/L Anion Gap (12-20) BUN (9-16) mg/dL Creatinine (0.5-1.4) mg/dL Estim Creat Clear Calc Estimated GFR POC Glucose (60-115) mg/dL Random Glucose (60-115) mg/dL Lactic Acid (0.5-2.0) mmol/L Calcium (8.4-10.2) mg/dL Total Bilirubin (0.0-1.0) mg/dL AST (5-31) U/L ALT (0-31) U/L Alkaline Phosphatase (39-117) U/L Troponin I High Sens 151.9 H* (<3.5-17.0) ng/L B-Natriuretic Peptide (<100) pg/mL Total Protein (6.5-8.0) g/dL Albumin (3.5-5.0) g/dL SARS-CoV-2 (PCR) Influenza Type A (PCR) (Negative) Influenza Type B (PCR) (Negative) RSV RNA Qual (PCR) (Negative) SARS-CoV-2 RNA (RT-PCR) (Negative) Critical Care Time Critical Care Time Critical Care Time: Yes Total Critical Care Time: 75 Attestation: Critical care time for severe respiratory distress. Critical care time outside of separately billable procedures Discharge Plan Discharge Clinical Impression: Acute exacerbation of chronic obstructive airways disease Patient Disposition: Admitted As Inpatient Interventions: Admission Worksheet (ED) Last Done: 01/31/22 00:39 Discharge Date/Time: 01/31/22 00:00
[2022-01-30 18:36] LABS: MANUAL DIFF FLAG NO
[2022-01-30] MEDS: Albuterol Sulfate 7.5 MG, Albuterol Sulfate (0.083%) 2.5 MG 10 MG INHALE ×2 (18:36→21:33)
[2022-01-30 18:39] LABS: Glucose, Whole Blood 213 mg/dL (60-115)
[2022-01-30 18:43] LABS: VBG Base Excess -4.1 mmol/L; VBG HCO3 23 mmol/L (22-26); VBG pCO2 49 mmHg; VBG pH 7.27 (7.32-7.43); VBG pO2 167 mmHg
[2022-01-30 18:47] LABS: Venous Blood Gas Refer to POC result
[2022-01-30 18:48] LABS: INTERNATIONAL NORM RATIO 0.9 (0.9-1.1); Prothrombin Time 9.9 SEC (10.0-13.1)
[2022-01-30 18:50] LABS: D Dimer High Sensitivity 915 NG/ML
[2022-01-30 18:58] LABS: Lactic Acid 1.5 mmol/L (0.5-2.0)
[2022-01-30 19:08] LABS: Basophils Percent Auto 0.3 % (0-2); Eosinophils Absolute Auto 0.1 X10*3/uL (0.0-0.4); Eosinophils Percent Auto 0.4 % (0-4); Hematocrit 35.9 % (37.0-47.0); Hemoglobin 12.1 g/dl (12.0-16.0); Imm Gran Abs Auto 0.17 X10*3/uL (0.00-0.03); Imm Gran Pct Auto 1.2 % (0.0-0.4); Lymphocytes Absolute Auto 1.3 X10*3/uL (1.2-4.9); Lymphocytes Percent Auto 9.5 % (20-40); Mean Corpuscular HGB Conc 33.7 g/dl (31.0-35.0); Mean Corpuscular Hemoglobin 29.8 pg (27.0-33.0); Mean Corpuscular Volume 88.4 fL (80.0-98.0); Monocytes Absolute Auto 0.7 X10*3/uL (0.1-1.2); Monocytes Percent Auto 4.6 % (2-11); Neutrophils Absolute Auto 11.8 x10*3/uL (2.0-8.3); Platelet Count 247 X10*3/uL (160-400); Red Blood Count 4.06 X10*6/uL (4.20-5.50); Red Cell Distribution Width 15.9 % (11.0-16.0); White Blood Count 14.1 X10*3/uL (4.8-10.8)
[2022-01-30 19:09] LABS: Alanine Aminotransferase 19 U/L (0-31); Albumin Level 4.3 g/dL (3.5-5.0); Alkaline Phosphatase 195 U/L (39-117); Anion Gap 24 (12-20); Aspartate Amino Transferase 52 U/L (5-31); Bilirubin Total 0.7 mg/dL (0.0-1.0); Blood Urea Nitrogen 29 mg/dL (9-16); Calcium 9.1 mg/dL (8.4-10.2); Carbon Dioxide 20 mmol/L (22-29); Chloride 92 mmol/L (96-108); Creatinine Clr Calc Pharmacy 7.1; Estimated Glomerular Filt Rate 6; Glucose Random 226 mg/dL (60-115); Potassium 4.7 mmol/L (3.3-5.1); Sodium 131 mmol/L (135-145); Total Protein 7.9 g/dL (6.5-8.0)
[2022-01-30 19:24] LABS: B Type Natriuretic Peptide 4793 pg/mL (<100); Troponin-I High Sensitivity 160.8 ng/L (<3.5-17.0)
[2022-01-30 19:49] LABS: Influenza A PCR NEGATIVE (Negative); Influenza B PCR NEGATIVE (Negative); Resp Syncy Virus RNA Qual PCR NEGATIVE (Negative); SARS COV2 PCR INHOUSE NEGATIVE (Negative)
[2022-01-30] MEDS: Labetalol HCL 100 MG/20 ML VIAL 20 MG IVPUSH (20:04)
[2022-01-30] MEDS: methylPREDNISolone Sod Succ 125 MG/2 ML VIAL IVPUSH (20:04)
[2022-01-30 20:34] LABS: Troponin-I High Sensitivity 151.9 ng/L (<3.5-17.0)
--- NOTE | 2022-01-30 21:14 | PC.NURSE ---
Addendum entered by Reema Guzman RN 01/30/22 21:25: Cont. from last note (unfinished) - BiPap settings - 15/5. 50% O2, sats. 95%. 50mcg Fentanyl and 100mg IVP Lasix administered Original Note: Pt. was transferred over from BiPap to 2L via NC. Pt. was comfortable and without any distress on the 2L, smiling, eating and speaking in full sentences. Pt. suddenly began to desat. at appx. 21:10. Providers Bhumika Manzano, cyndi RN, screening unit registered nurse Rosy and CELIO Herbert to room. Pt. was placed for a moment on non-rebreather face mask - sats 94% - while awaiting respiratory's arrival to put pt. back on BiPap. BiPap settings - 14/5, 28% at this time, pt.'s O2 sats
[2022-01-30] MEDS: fentaNYL citrate/PF 100 MCG/2 ML VIAL 50 MCG IVPUSH (21:19)
[2022-01-30] MEDS: Furosemide 100 MG/10 ML VIAL IVPUSH (21:25)
--- NOTE | 2022-01-30 22:00 | PC.NURSE ---
ICU PA Tyler Monterroso ordering Nitro. paste 1inch and Nitro. gtt. Per [id number] conversation with PA, hold off on Nitro. gtt for now and start with Nitro. paste
--- NOTE | 2022-01-30 22:50 | P.HPCC_ITS ---
History of Present Illness Date of Service: 01/30/22 Attending physician on admission: Gaurang Li Chief Complaint: She is lethargic and her BP is high ?HPI: ?Patient with underlying history of end-stage renal disease who is supposed to be on hemodialysis Tuesdays and Saturdays however is well known to be and compliant with her dialysis treatment which has caused severe from respiratory failure leading to intubations in the past. Currently unable to tell us whether or not she had HD 2 days ago, has history of anasarca, ascites, bilateral lower extremity edema, diabetes, constipation, hypertension, COPD not on home O2, ischemic colitis, CHF with preserved ejection fraction among others. She presented today to the emergency room with complaints of reported altered mental status via EMS.? He was reported to them that the patient was extremely short of breath and lethargic. On arrival to the emergency room patient's blood pressure was 229/98 with heart rate of 112, arrived on BiPAP satting 94% with an FiO2 of 35%.? Reportedly her blood pressure had come down to 180/90 without treatment and the patient was taken off BiPAP. ?She had complaint of left lower quadrant abdominal discomfort which had started yesterday, CT of the abdomen and pelvis was obtained show no acute pathology other than large volume of stool throughout the colon suggesting constipation.? Possible pancreatic stranding versus motion artifact.? New small bilateral right and trace left pleural effusion.? New/worsened patchy bibasilar opacities.? The most sake lung attenu ation with areas of ground-glass opacity and likely some degree of air trapping.? Persistent cardiomegaly.? Trace pericardial effusion..? Subsequently the patient was placed back on BiPAP after 30 minutes of being off it, albuterol treatments and fentanyl for work of breathing had been given. ? I was called to admit this patient, on arrival the patient had blood pressure above 190, was not able to answer my questions, seemed significantly lethargic with a heart rate in the 110s and on BiPAP 15/5 with FiO2 40%. Review of laboratory workup revealed a white count of 14.1, H&H of 12.1 and 35.9, platelet 247.? PTT 9.9 INR 0.9.? Venous blood gas pH 7.27 pCO2 49 PO2 167 HC03 of 23. Sodium 131 potassium 4.7 chloride 92 carbon dioxide 20 anion gap 24 BUN 29 crit, creatinine 6.88.? Troponin sensitivity 151 (chronically abnormal as high as 787.), BNP 4793 (lower than 7788 which is her prior baseline).? COVID negative. ?To my view her chest x-ray shows cardiomegaly with extensive pulmonary edema a nd small bilateral pleural effusions right greater than left. It seems that labetalol was not given even though it was ordered.? At this point I am concerned about the patient's well-being and I would rather transfer to the ICU, I have ordered nitropaste 1 inch paste while they can start her on nit roglycerin drip and immediate transfer to the ICU. ? ? ROS:? Unable to obtain ? Past Medical History:? As above ? Past Surgical History: ?As above otherwise unknown ? Family history:? Noncontributory ? Social History: ?Stone the patient lives at her apartment, has a history of tobacco consumption about 5 cigars per day for the past 18 years, history of heroin use.? No history of alcohol abuse. Listed contacts include her son Ke Muller phone number [phone] ? CODE STATUS: FULL CODE ? Allergies: NKDA ? Home Medications: See Med Rec ? PHYSICAL EXAM: VS: ?189/81, 86, 26, 96% on the above-mentioned settings of BiPAP.? Temperature 97.8 degrees F. General:? Alert oriented somewhat obtunded, moans and groans. Skin:? Intact, no lesions, edema, erythema, clubbing or cyanosis.? No ulcers. HEENT:? Head is normocephalic, atraumatic, pupils equal round reactive to light accommodation bilaterally.? Extraocular movements appear intact.? Buccal mucosa is moist, Neck is supple without lymphadenopathy. Cardiac: ?Right PermCath on the right chest with clear, dry and intact surroundings. ?Clear S1-S2, no murmurs rubs or gallops. ?2+ JVD at 30 degree angles. Pulmonary: ?Diffuse crackles bilaterally and throughout anteriorly and posteriorly with no rhonchi or wheezes. Abdomen:? Protuberant, positive bowel sounds in all 4 quadrants.? Soft, nontender, no rebound or guarding.? Musculoskeletal:? Moving all 4 extremities upon request a major joints, there is no crepitus or tenderness.? The strength is 5/5 bilaterally and throughout all 4 extremities.? There is no leg edema , no calf tenderness , no leg asymmetry.? Gait not assessed at this point. Neurologic:? As above, otherwise no focal Motor strength as above.? Vascular:? 2+ pulses upper and lower extremities distally. ? SIGNIFICANT LABORATORY DATA:? As above ? REVIEW OF IMAGES: ?As above ? EKG REVIEW: To my view this is sinus rhythm rate of 63 beats per minute.? No ST elevations, no depressions noted.? There is evidence of left ventricular hypertrophy.? QTC 466.? This is compared to a study from 10/15/2021. ? ASSESSMENT AND PLAN: 1. Acute hypertensive emergency /crisis 2. Flash pulmonary edema in setting of the above 3. Acute respiratory distress in the setting of 2. 4. End-stage renal disease in need of dialysis due to fluid overload 5. Hypervolemic hyponatremia 6. Uncontrolled diabetes mellitus type 2 7. Chronic troponin abnormality rule out ACS although unlikely most likely due to renal disease leakage 8. Possible bilateral pulmonary infiltrates representing community-acquired pneumonia ? PLAN OF CARE: 1. Admit to ICU, monitor vital signs and I's and O's, most importantly 22 bring her blood pressure down, given the pharmacy would not allow IV boluses of nitroglycerin, nitroglycerin patch 1 in has been placed to her chest and drip has been ordered per protocol.? 2. Continue with BiPAP support, decrease the FiO2. On arrival to the unit, the patient unfortunate has no IV access even tho over 10 attempts have been made by the RNs to place an IV.? Now that she is more awake I discussed with the patient the possibility of placing a central line and she agrees. 3. I believe that the patient is significantly fluid overloaded and decreasing her blood pressure may not be enough, she may need dialysis tonight.? The case was discussed with Dr. Krishnamurthy (nephrology) who agrees and is not sure if the patient received dialysis on Sunday but is known that she has some compliant.? He was sent to dialysis nurse tonight for fluid removal and then she will have a regular dialysis session tomorrow. 4. I will start her on Rocephin and Zithromax as this requires no renal adjustment.? Will add a procalcitonin level. 5. Insulin sliding scale ? GI PROPHYLAXIS: ?IV ppi for stress ulcer prevention DVT PROPHYLAXIS: Heparin sub q bid Clinical update 0630 am 01/31/2022 Patient is doing much better, her blood pressure is 133/90, heart rate 80, she feels much better. Her venous blood gas is unremarkable, I have discontinued BiPAP and place her on 2 L nasal cannula. The patient continues on nitroglycerin drip, she did receive here 06:00 o'clock medications with exception of Cardizem. The med rec needs to be verified with her pharmacy. It is known that the patient will receive her normal hemodialysis session today sometime between 8 and 09:00 o'clock. ? Critical care time used for critical evaluation of this patient, diagnosis, treatment and coordination of care, review her records and documentation TOTAL CRITICAL CARE TIME 120 ?MIN . discussion and coordination with consultants, completely separate from any procedures performed. ? Patient's care was discussed in detail with Dr. Li.? He is aware of all the above as well as the plan of care for this patient. FOR[facility], [facility] Past Medical History Medical History Abdominal pain Anasarca Anemia in chronic kidney disease Ascites Bilateral edema of lower extremity Constipation Diabetes mellitus End stage renal disease on dialysis Essential hypertension Heart failure with preserved ejection fraction HTN (hypertension) Non-compliance Family History Family History Other Hypertension Surgical History Surgical History No pertinent past surgical history Social History Social History Household Members: None Housing: Apartment Do you presently have visiting nurse or other home services: Yes Alcohol intake: unknown Patient Tobacco Use Status: Current someday Tobacco user Tobacco use type: Cigarette Cigarette Packs Per Day: 1 Cigarettes Per Day: 5 Years Smoked: 18 e-Cigarette/Vaping Use: Never Used Second Hand Smoke Exposure: No Substance Use Type: Heroin Advance Directives: No Advance Directives Information Provided: No Advance Directives Date on File: 04/20/21 service: No Current occupational status: unemployed and disabled Meds Allergies Allergy/AdvReac Type Severity Reaction Status Date / Time No Known Allergies Allergy Mild NOT Verified 10/10/21 20:00 APPLICABLE Active Medications: Current Medications Heparin Sodium (Porcine) (Heparin Sodium,Porcine 5,000 Unit/Ml Vial) 5,000 unit SUBCUT Q8H [facility] Nitroglycerin/Dextrose (Nitroglycerin/D5w) 100 mg in 250 mls @ 0 mls/hr IVCONT .Q0M PHAN; Protocol Home Medications Medication Instructions Recorded Confirmed Last Taken Type buprenorphine 8 mg-naloxone 2 mg 1 strip sublingual BID 10/22/20 10/12/21 10/12/21 History sublingual film (Suboxone) diltiazem HCl 180 mg 360 mg PO DAILY 10/22/20 10/12/21 10/12/21 History capsule,extended release 24 hr olanzapine 10 mg tablet 10 mg PO BEDTIME 02/25/21 10/12/21 10/11/21 History bumetanide 2 mg tablet 2 mg PO DAILY 04/15/21 10/12/21 10/12/21 History fluticasone propionate 110 1 puff inhalation BID 04/15/21 10/12/21 Unknown History mcg/actuation HFA aerosol inhaler (Flovent HFA) melatonin 5 mg tablet 5 mg PO BEDTIME PRN Sleep 04/15/21 10/12/21 Unknown History pantoprazole 40 mg tablet,delayed 40 mg PO DAILY 04/15/21 10/12/21 Unknown History release vitamin B comp no.3-folic acid 1 1 tab PO DAILY 04/15/21 10/12/21 Unknown History mg-vit C 60 mg-biotin 300 mcg tablet (LEGAL REFEREE-[facility]) sennosides 8.6 mg tablet (senna) 1 - 2 tab PO BEDTIME PRN 05/11/21 10/12/21 Unknown History constipation acetaminophen 500 mg tablet 500 mg PO Q8H PRN Pain, Mild 06/10/21 10/12/21 Unknown History sevelamer carbonate 800 mg tablet 800 mg PO BIDWMEAL 06/10/21 10/12/21 10/12/21 History clonidine HCl 0.2 mg tablet 0.2 mg PO BID 07/27/21 10/12/21 10/12/21 History hydralazine 50 mg tablet 1 tab PO TID 07/27/21 10/12/21 10/12/21 History insulin aspart U-100 100 unit/mL 1 sliding scale dose subcut 07/27/21 10/12/21 10/12/21 History subcutaneous cartridge (Novolog USEASDIRECTD PenFill U-100 Insulin aspart) trazodone 100 mg tablet 1 - 2 tab PO BEDTIME PRN Insomnia 08/08/21 10/12/21 Unknown History insulin glargine 100 unit/mL 7 unit subcut DAILY 09/18/21 10/12/21 10/12/21 History subcutaneous solution (Lantus U-100 Insulin) albuterol sulfate 2.5 mg/3 mL 3 ml inhalation TID PRN Shortness 10/11/21 10/12/21 Unknown History (0.083 %) solution for nebulization Of Breath aspirin 81 mg tablet,delayed 1 tab PO DAILY 10/11/21 10/12/21 10/12/21 History release Physical Exam Vital Signs: Vital Signs: Last Vital Signs Temp 97.8 F 01/30/22 22:00 Pulse 86 01/30/22 22:15 Resp 26 H 01/30/22 22:15 BP 189/81 H 01/30/22 22:15 Pulse Ox 96 01/30/22 22:15 O2 Del Method 01/30/22 22:15 FiO2 40 01/30/22 22:00 Oxygen Flow Rate 12 01/30/22 18:33 BMI result Body Mass Index 26.0 Results Labs CBC and Chem 7: 01/30/22 18:29 01/30/22 18:30 Labs: Laboratory Results - last 24 hr 01/30/22 01/30/22 01/30/22 18:24 18:29 18:29 MCV 88.4 MCH 29.8 MCHC 33.7 RDW 15.9 Plt Count 247 D MPV 9.0 L Immature Gran % (Auto) 1.2 H Neut % (Auto) 84.0 H Lymph % (Auto) 9.5 L [place] % (Auto) 4.6 Eos % (Auto) 0.4 Baso % (Auto) 0.3 Lymph # (Auto) 1.3 [place] # (Auto) 0.7 Eos # (Auto) 0.1 Baso # (Auto) 0.0 Abs Immat Gran (auto) 0.17 H Absolute Neuts (auto) 11.8 H Absolute Nucleated RBC 0.000 Nucleated RBC % (auto) 0.0 PT 9.9 L INR 0.9 D-Dimer High Sensitivty 915 VBG pH VBG pCO2 VBG pO2 VBG HCO3 VBG O2 Saturation VBG Base Excess Anion Gap Estim Creat Clear Calc Estimated GFR POC Glucose 213 H Random Glucose Lactic Acid Calcium Total Bilirubin AST ALT Alkaline Phosphatase B-Natriuretic Peptide Total Protein Albumin SARS-CoV-2 (PCR) Influenza Type A (PCR) Influenza Type B (PCR) RSV RNA Qual (PCR) SARS-CoV-2 RNA (RT-PCR) 01/30/22 01/30/22 01/30/22 18:29 18:29 18:30 MCV MCH MCHC RDW Plt Count MPV Immature Gran % (Auto) Neut % (Auto) Lymph % (Auto) [place] % (Auto) Eos % (Auto) Baso % (Auto) Lymph # (Auto) [place] # (Auto) Eos # (Auto) Baso # (Auto) Abs Immat Gran (auto) Absolute Neuts (auto) Absolute Nucleated RBC Nucleated RBC % (auto) PT INR D-Dimer High Sensitivty VBG pH VBG pCO2 VBG pO2 VBG HCO3 VBG O2 Saturation VBG Base Excess Anion Gap 24 H Estim Creat Clear Calc 7.1 Estimated GFR 6 POC Glucose Random Glucose 226 H Lactic Acid 1.5 Calcium 9.1 D Total Bilirubin 0.7 AST 52 H ALT 19 Alkaline Phosphatase 195 H D B-Natriuretic Peptide 4793 H Total Protein 7.9 D Albumin 4.3 SARS-CoV-2 (PCR) Influenza Type A (PCR) Influenza Type B (PCR) RSV RNA Qual (PCR) SARS-CoV-2 RNA (RT-PCR) 01/30/22 01/30/22 01/30/22 18:36 18:57 18:57 MCV MCH MCHC RDW Plt Count MPV Immature Gran % (Auto) Neut % (Auto) Lymph % (Auto) [place] % (Auto) Eos % (Auto) Baso % (Auto) Lymph # (Auto) [place] # (Auto) Eos # (Auto) Baso # (Auto) Abs Immat Gran (auto) Absolute Neuts (auto) Absolute Nucleated RBC Nucleated RBC % (auto) PT INR D-Dimer High Sensitivty VBG pH 7.27 L VBG pCO2 49 VBG pO2 167 VBG HCO3 23 VBG O2 Saturation 99.0 VBG Base Excess -4.1 Anion Gap Estim Creat Clear Calc Estimated GFR POC Glucose Random Glucose Lactic Acid Calcium Total Bilirubin AST ALT Alkaline Phosphatase B-Natriuretic Peptide Total Protein Albumin SARS-CoV-2 (PCR) Cancelled Influenza Type A (PCR) NEGATIVE Influenza Type B (PCR) NEGATIVE RSV RNA Qual (PCR) NEGATIVE SARS-CoV-2 RNA (RT-PCR) NEGATIVE Imaging Radiologist's Impressions: Impressions Chest X-Ray 01/30/22 19:01 IMPRESSION: Chronic appearing coarsened reticular markings and tiny effusions. No overt edema. Abdomen/Pelvis CT 01/30/22 21:11 IMPRESSION: Study is significantly limited by motion artifact. Large volume stool throughout the colon suggest constipation. There may be fat stranding adjacent the pancreas vs. Motion artifact. Consider correlation with serum enzymes. New small right, trace left pleural effusions. New/worsened patchy bibasilar airspace opacities. There is mosaic lung attenuation with areas of groundglass opacity, and likely some degree of air trapping. Persistent cardiomegaly. Trace pericardial effusion. Chest X-Ray 01/30/22 21:30 IMPRESSION: Worsening increased interstitial markings and vascular prominence suggesting fluid overload/pulmonary edema when compared to earlier today.
[2022-01-30] MEDS: Heparin Sodium,Porcine 5,000 UNIT/ML VIAL 5000 UNIT SUBCUT (23:41)
[2022-01-30] MEDS: Nitroglycerin 2 % Oint 1 GM Packet 1 INCH TRANSDERMA (23:42)
[2022-01-30] MEDS: Nitroglycerin/D5W 100 MG/250 ML INFUS..BTL IVCONT (23:44)
--- NOTE | 2022-01-30 23:50 | PC.NURSE ---
Nitroglycerin gtt initiated at protocol rate of 20mcg/min with a starting BP of 223/100 (141). Repeat BP after five minutes was 187/77 (113).
[2022-01-31] VITALS (26 sets, daily range): BP systolic 96–196; BP diastolic 55–102; PULSE 78–104; RESP 12–28; TEMP 36.2–37.1; O2SAT 94–100; BMI 25.8; BMI 26.1
--- NOTE | 2022-01-31 | PC.NURSE ---
Pt. transported to ICU accompanied by Yifan BRAKE RELINER at bedside managing the BiPap
[2022-01-31] MEDS: Lidocaine HCl 2 % 20 ML VIAL 5 ML SUBCUT (01:30)
[2022-01-31] MEDS: fentaNYL citrate/PF 100 MCG/2 ML VIAL 50 MCG IVPUSH ×2 (02:00→10:12)
[2022-01-31 02:46] LABS: Troponin-I High Sensitivity 148.1 ng/L (<3.5-17.0)
--- NOTE | 2022-01-31 02:55 | P.PCNCC_ITS ---
Procedures Date of Service Date of Service: 01/31/22 Central Line Placement Left IJ: Central Line Comments: Verbal consent was obtained from the patient, she is now awake enough to provide this consent. A quick time-out was made for clarification and proper patient identification, patient was positioned, landmarks were identified, US used to locate a large compressible IJ. The left neck was widely prepped and draped in a full sterile fashion. Ultrasound was used to locate again the left IJ, the vein was cannulated on the 1st pass with an 18 gauge thin needle, dark nonpulsatile blood return was obtained. The wire was threaded, a small incision was made at its base and dilator inserted. A triple-lumen central venous catheter was advanced into the vein up to the hub without problems, wired was removed. Ports had good blood return and flushed x3. The catheter was secured with 3 sutures at 3 sites, a Biopatch and dry sterile dressing were applied. Post procedure chest x-ray showed the line to be in good position without pneum othorax. No bleeding or complications noted.
[2022-01-31] MEDS: Azithromycin 500 MG in 0.9 % Sodium Chloride 250 ML 125 MG IV (04:01)
[2022-01-31] MEDS: cefTRIAXone sodium 1 GM in 0.9 % Sodium Chloride 50 ML IV (04:03)
[2022-01-31 04:06] LABS: Glucose, Whole Blood 209 mg/dL (60-115)
--- NOTE | 2022-01-31 04:48 | PC.NURSE ---
ADMIT TO ICU APPROX 00:15..REMAINED ON BIPAP 15/5 AND FIO2 25%.....LUNGS DIFFUSE CRACKLES THROUGHOUT.....IV NTG DRIP 20 MCG/MIN BUT IV ACCESS LEFT AC NON-FUNCTIONAL...MULTIPLE ATTEMPTS AT RESTARTING PERIPHERAL ACCESS BY THIS AND OTHER RN UNSUCCESSFUL...ICU PA PRESENT..PA ATTEMPTED EJ W/O SUCCESS...LEFT JUGULAT TLC INSERTED BY PA..CXR POST-INSERTION READ BY PA...IV NTG DRIP INIATED AND TITRATED PER JUL..CURRENTLY 140 MCG/MIN...NTG PASTE TO LEFT CHEST WIPED OFF PER PA...POC GLUCOSE 207..COVERAGE HELD PER PA D/T NPO DURING DIALYSIS..U.S. SENATOR PRESENT...3000ml FLUID REMOVED DURING DIALYSIS..RIGHT CHEST PERMACATH INTACT..NSR..NO ECTOPY...PLANNED REPEAT DIALYSIS IN AM PER ICU PA...PO BP MEDS REORDERED BY PA
[2022-01-31 05:20] LABS: VBG Base Excess -3.5 mmol/L; VBG HCO3 22 mmol/L (22-26); VBG pCO2 41 mmHg; VBG pH 7.33 (7.32-7.43); VBG pO2 56 mmHg
[2022-01-31 05:21] LABS: Venous Blood Gas Refer to POC result
[2022-01-31] MEDS: Pantoprazole Sodium 40 MG/10 ML VIAL IVPUSH (05:38)
[2022-01-31] MEDS: hydrALAZINE HCl 50 MG TABLET PO ×3 (05:39→21:28)
[2022-01-31] MEDS: Isosorbide Mononitrate 30 MG TAB.ER.24H PO (05:39)
[2022-01-31 08:45] LABS: Glucose, Whole Blood 172 mg/dL (60-115)
[2022-01-31] MEDS: Heparin Sodium,Porcine 5,000 UNIT/ML VIAL 5000 UNIT SUBCUT ×2 (08:50→15:45)
[2022-01-31] MEDS: Insulin Lispro 100 UNIT/ML 3 ML VIAL SUBCUT ×2 (08:50→18:44)
[2022-01-31] MEDS: amLODIPine Besylate 10 MG TABLET PO (10:15)
[2022-01-31] MEDS: Metoclopramide HCl 10 MG/2 ML VIAL 5 MG IVPUSH (10:15)
[2022-01-31] MEDS: Nitroglycerin/D5W 100 MG/250 ML INFUS..BTL 22.5 MG IVCONT (10:47)
[2022-01-31] MEDS: cloNIDine HCL 0.2 MG TABLET PO ×2 (10:47→21:29)
--- NOTE | 2022-01-31 11:42 | PHA.MEDREC ---
Pharmacy Consult ? Medication Reconciliation Pharmacy has completed the medication reconciliation. [employer] services used, pt poor historian and stated she would not be able to confirm any medications. She did specifically ask for Suboxone and nicotine patches. I asked her if anyone helped her with her medications and she stated she had nurses by the name of Heidy and Gwen but was unable to provide any contact information. Did med rec based on recent pharmacy claim history.
--- NOTE | 2022-01-31 13:11 | MHC.CM.PN ---
Attempted to call patient's daughter. VM full unable to leave message. HCP on file.
--- NOTE | 2022-01-31 15:54 | PC.NURSE ---
0915-hematoma noted around left IJ central line. line draws blood and flushes well. No increase in hematoma noted. 1545-central line drsg changed. Dr vazquez inspected line. No fluids or medications running through line currently.
[2022-01-31] MEDS: Albuterol/Iprat 2.5/0.5MG 3 ML AMPUL.NEB INHALE ×2 (15:55→20:07)
--- NOTE | 2022-01-31 16:24 | PM.CCPN ---
Subjective Subjective Date of Service: 01/31/22 Interval History: Mrs. Muller was admitted to ICU last night with hypertensive crisis, pulmonary edema, and respiratory failure. I know the patient well from her admission here in July of this year. ?The patient is a 66 yo woman with ESRD on HD T-, chino noncompliant with HD, chino comes to [facility] [place] [facility] for one day admission.? Has been intubated in the past for episodes such as the current one.? Past medical history also includes hypertension, diabetes, COPD not on home O2, CHFpEF, anasarca, bilateral lower extremity edema, ischemic colitis, and anemia.? Also a current everyday tobacco user, with history of heroin abuse. The patient was BIBA to the ED yesterday evening complaining of shortness of breath and chest pain.? She claimed that she had her HD this past Sun. In the ED, she was lethargic, in acute respiratory distress.? She had marked JVD.? She had bilateral wheezing without obvious rales.? Blood pressure was 229/98, sat 94% on BiPAP 35%.? WBC was 14, BUN/creatinine 29/6.8, bicarb 20, potassium 4.7, lactic acid 1.5, troponin 160 and flat, BNP 4700.? VBG showed 7.27/49/-4.? Initial CXR (my reading) suggests pulmonary edema, later CXR confirmed it. The patient was put on BiPAP and admitted to ICU.? A CVL was placed and she was given high dose nitrates.? She was also given empiric Abx.? PCT was 1.3.? She was dialyzed, 3L taken off. She did well overnight and was dialyzed again this morning.? Tolerated HD with no problem.? Post-HD, she?s fully awake and oriented, ate her lunch ravenously.? HR 90?s SR, BP 100-150 systolic.? RR is mid-20?s, Sat 100% on 2L NC, 93-94% on room air.? No JVD at 40?.? She has a large hematoma in her left neck below and anterior to the CVL insertion site.? Auscultation of the chest shows mild expiratory wheezes with probably a normal expiratory phase.? Heart rate and rhythm are regular, soft heart tones, I heard no murmur or gallops.? Abdomen is rotund but small, clinically benign.? She has no peripheral edema. LABORATORY DATA:? Below. IMPRESSION: 1. ESRD, ? compliance with hemodialysis. 2. Hypertensive crisis.? Treated with high dose NTG.? Resolved.? Restarted on her home meds. 3. Acute pulmon edema.? 2? above. 4. Acute respiratory distress.? 2? above.? Resolved. 5. Acute asthma exacerbation.? For now treating with just BDs.? Add steroids if nec. 6. DM.? On SS insulin plus Lantus. 7. ID:? I don?t think she has any infection.? No abx are indicated.? (Zithromax might be considered if her chest doesn?t clear.) 8. Opiate abuse.? On Suboxone.? I?ve restarted all of her home meds. The patient is stable for transfer to med surg.? Will sign out to the hospitalists. Critical Care Time (minutes): 0 Physical Exam Vital Signs: Vital Signs: Last Vital Signs Temp 98.7 F 01/31/22 08:00 Pulse 100 01/31/22 16:00 Resp 23 H 01/31/22 16:00 BP 135/72 01/31/22 16:00 Pulse Ox 94 01/31/22 16:00 O2 Del Method 01/31/22 16:00 O2 Flow Rate 2 01/31/22 16:00 FiO2 40 01/31/22 06:00 Oxygen Flow Rate 12 01/30/22 18:33 BMI result Body Mass Index 26.1 Objective Data Labs CBC & Chem 7: 01/30/22 18:29 01/30/22 18:30 Labs: Laboratory Results - last 24 hr 01/30/22 01/30/22 01/30/22 18:24 18:29 18:29 WBC 14.1 H RBC 4.06 L Hgb 12.1 D Hct 35.9 L MCV 88.4 MCH 29.8 MCHC 33.7 RDW 15.9 Plt Count 247 D MPV 9.0 L Immature Gran % (Auto) 1.2 H Neut % (Auto) 84.0 H Lymph % (Auto) 9.5 L Blaine % (Auto) 4.6 Eos % (Auto) 0.4 Baso % (Auto) 0.3 Lymph # (Auto) 1.3 Blaine # (Auto) 0.7 Eos # (Auto) 0.1 Baso # (Auto) 0.0 Abs Immat Gran (auto) 0.17 H Absolute Neuts (auto) 11.8 H Absolute Nucleated RBC 0.000 Nucleated RBC % (auto) 0.0 PT 9.9 L INR 0.9 D-Dimer High Sensitivty 915 VBG pH VBG pCO2 VBG pO2 VBG HCO3 VBG O2 Saturation VBG Base Excess Sodium Potassium Chloride Carbon Dioxide Anion Gap BUN Creatinine Estim Creat Clear Calc Estimated GFR POC Glucose 213 H Random Glucose Lactic Acid Calcium Total Bilirubin AST ALT Alkaline Phosphatase Total Creatine Kinase Troponin I High Sens B-Natriuretic Peptide Total Protein Albumin Procalcitonin SARS-CoV-2 (PCR) Influenza Type A (PCR) Influenza Type B (PCR) RSV RNA Qual (PCR) SARS-CoV-2 RNA (RT-PCR) 01/30/22 01/30/22 01/30/22 18:29 18:29 18:30 WBC RBC Hgb Hct MCV MCH MCHC RDW Plt Count MPV Immature Gran % (Auto) Neut % (Auto) Lymph % (Auto) Blaine % (Auto) Eos % (Auto) Baso % (Auto) Lymph # (Auto) Blaine # (Auto) Eos # (Auto) Baso # (Auto) Abs Immat Gran (auto) Absolute Neuts (auto) Absolute Nucleated RBC Nucleated RBC % (auto) PT INR D-Dimer High Sensitivty VBG pH VBG pCO2 VBG pO2 VBG HCO3 VBG O2 Saturation VBG Base Excess Sodium 131 L Potassium 4.7 D Chloride 92 L Carbon Dioxide 20 L Anion Gap 24 H BUN 29 H D Creatinine 6.88 H* Estim Creat Clear Calc 7.1 Estimated GFR 6 POC Glucose Random Glucose 226 H Lactic Acid 1.5 Calcium 9.1 D Total Bilirubin 0.7 AST 52 H ALT 19 Alkaline Phosphatase 195 H D Total Creatine Kinase Troponin I High Sens 160.8 H* D B-Natriuretic Peptide 4793 H Total Protein 7.9 D Albumin 4.3 Procalcitonin SARS-CoV-2 (PCR) Influenza Type A (PCR) Influenza Type B (PCR) RSV RNA Qual (PCR) SARS-CoV-2 RNA (RT-PCR) 01/30/22 01/30/22 01/30/22 18:36 18:57 18:57 WBC RBC Hgb Hct MCV MCH MCHC RDW Plt Count MPV Immature Gran % (Auto) Neut % (Auto) Lymph % (Auto) Blaine % (Auto) Eos % (Auto) Baso % (Auto) Lymph # (Auto) Blaine # (Auto) Eos # (Auto) Baso # (Auto) Abs Immat Gran (auto) Absolute Neuts (auto) Absolute Nucleated RBC Nucleated RBC % (auto) PT INR D-Dimer High Sensitivty VBG pH 7.27 L VBG pCO2 49 VBG pO2 167 VBG HCO3 23 VBG O2 Saturation 99.0 VBG Base Excess -4.1 Sodium Potassium Chloride Carbon Dioxide Anion Gap BUN Creatinine Estim Creat Clear Calc Estimated GFR POC Glucose Random Glucose Lactic Acid Calcium Total Bilirubin AST ALT Alkaline Phosphatase Total Creatine Kinase Troponin I High Sens B-Natriuretic Peptide Total Protein Albumin Procalcitonin SARS-CoV-2 (PCR) Cancelled Influenza Type A (PCR) NEGATIVE Influenza Type B (PCR) NEGATIVE RSV RNA Qual (PCR) NEGATIVE SARS-CoV-2 RNA (RT-PCR) NEGATIVE 01/30/22 01/31/22 01/31/22 19:54 02:14 02:14 WBC RBC Hgb Hct MCV MCH MCHC RDW Plt Count MPV Immature Gran % (Auto) Neut % (Auto) Lymph % (Auto) Blaine % (Auto) Eos % (Auto) Baso % (Auto) Lymph # (Auto) Blaine # (Auto) Eos # (Auto) Baso # (Auto) Abs Immat Gran (auto) Absolute Neuts (auto) Absolute Nucleated RBC Nucleated RBC % (auto) PT INR D-Dimer High Sensitivty VBG pH VBG pCO2 VBG pO2 VBG HCO3 VBG O2 Saturation VBG Base Excess Sodium Potassium Chloride Carbon Dioxide Anion Gap BUN Creatinine Estim Creat Clear Calc Estimated GFR POC Glucose Random Glucose Lactic Acid Calcium Total Bilirubin AST ALT Alkaline Phosphatase Total Creatine Kinase 110 Troponin I High Sens 151.9 H* 148.1 H* B-Natriuretic Peptide Total Protein Albumin Procalcitonin SARS-CoV-2 (PCR) Influenza Type A (PCR) Influenza Type B (PCR) RSV RNA Qual (PCR) SARS-CoV-2 RNA (RT-PCR) 01/31/22 01/31/22 01/31/22 02:14 04:02 05:12 WBC RBC Hgb Hct MCV MCH MCHC RDW Plt Count MPV Immature Gran % (Auto) Neut % (Auto) Lymph % (Auto) Blaine % (Auto) Eos % (Auto) Baso % (Auto) Lymph # (Auto) Blaine # (Auto) Eos # (Auto) Baso # (Auto) Abs Immat Gran (auto) Absolute Neuts (auto) Absolute Nucleated RBC Nucleated RBC % (auto) PT INR D-Dimer High Sensitivty VBG pH 7.33 VBG pCO2 41 VBG pO2 56 VBG HCO3 22 VBG O2 Saturation 85.0 VBG Base Excess -3.5 Sodium Potassium Chloride Carbon Dioxide Anion Gap BUN Creatinine Estim Creat Clear Calc Estimated GFR POC Glucose 209 H Random Glucose Lactic Acid Calcium Total Bilirubin AST ALT Alkaline Phosphatase Total Creatine Kinase Troponin I High Sens B-Natriuretic Peptide Total Protein Albumin Procalcitonin 1.30 SARS-CoV-2 (PCR) Influenza Type A (PCR) Influenza Type B (PCR) RSV RNA Qual (PCR) SARS-CoV-2 RNA (RT-PCR) 01/31/22 08:41 WBC RBC Hgb Hct MCV MCH MCHC RDW Plt Count MPV Immature Gran % (Auto) Neut % (Auto) Lymph % (Auto) Blaine % (Auto) Eos % (Auto) Baso % (Auto) Lymph # (Auto) Blaine # (Auto) Eos # (Auto) Baso # (Auto) Abs Immat Gran (auto) Absolute Neuts (auto) Absolute Nucleated RBC Nucleated RBC % (auto) PT INR D-Dimer High Sensitivty VBG pH VBG pCO2 VBG pO2 VBG HCO3 VBG O2 Saturation VBG Base Excess Sodium Potassium Chloride Carbon Dioxide Anion Gap BUN Creatinine Estim Creat Clear Calc Estimated GFR POC Glucose 172 H Random Glucose Lactic Acid Calcium Total Bilirubin AST ALT Alkaline Phosphatase Total Creatine Kinase Troponin I High Sens B-Natriuretic Peptide Total Protein Albumin Procalcitonin SARS-CoV-2 (PCR) Influenza Type A (PCR) Influenza Type B (PCR) RSV RNA Qual (PCR) SARS-CoV-2 RNA (RT-PCR) Quality Stroke Does the patient have a stroke diagnosis?: No VTE Prior VTE?: No VTE Risk Level:: Medical - moderate - high VTE Device Contraindication: N/A - Device Ordered VTE Drug Contraindication: N/A - Med Ordered
--- NOTE | 2022-01-31 16:39 | PM.EVENT ---
Event Note Date of Service: 01/31/22 Event Note: Pt transfered out of ICU following emergent dialysis for hypertensive crisis, pulmonary edema. Was dialysed last night and today and is ow hemodynamically stable.
[2022-01-31 16:45] LABS: Glucose, Whole Blood 168 mg/dL (60-115)
[2022-01-31] MEDS: Buprenorphine/Naloxone 8/2 mg FILM 1 FILM SUBLINGUAL ×2 (17:20→21:33)
[2022-01-31] MEDS: Sevelamer Carbonate Tablet 800 MG TABLET PO (17:20)
[2022-01-31] MEDS: Nicotine 7 MG PATCH.TD24 TRANSDERMA (17:20)
[2022-01-31] MEDS: dilTIAZem HCL CD 180 MG CAP.ER.24H 360 MG PO (18:44)
[2022-01-31 20:55] LABS: Glucose, Whole Blood 101 mg/dL (60-115)
[2022-01-31] MEDS: Ondansetron ODT 4 MG TAB.RAPDIS TRANSLINGU (21:28)
[2022-01-31] MEDS: OLANZapine 5 MG TABLET PO (21:28)
[2022-02-01] MEDS: Heparin Sodium,Porcine 5,000 UNIT/ML VIAL 5000 UNIT SUBCUT ×2 (00:29→06:09)
[2022-02-01 03:38] VITALS: BP 127/62; PULSE 73; RESP 20; TEMP 36.8; O2SAT 93
[2022-02-01 05:59] LABS: Hematocrit 29.8 % (37.0-47.0); Hemoglobin 9.7 g/dl (12.0-16.0); Mean Corpuscular HGB Conc 32.6 g/dl (31.0-35.0); Mean Corpuscular Hemoglobin 29.1 pg (27.0-33.0); Mean Corpuscular Volume 89.5 fL (80.0-98.0); Mean Platelet Volume 9.9 fL (9.4-12.3); Platelet Count 158 X10*3/uL (160-400); Red Blood Count 3.33 X10*6/uL (4.20-5.50); Red Cell Distribution Width 15.8 % (11.0-16.0); White Blood Count 7.7 X10*3/uL (4.8-10.8)
[2022-02-01 06:19] LABS: B Type Natriuretic Peptide 1593 pg/mL (<100)
[2022-02-01 06:21] LABS: Anion Gap 15 (12-20); Blood Urea Nitrogen 29 mg/dL (9-16); Calcium 8.2 mg/dL (8.4-10.2); Carbon Dioxide 24 mmol/L (22-29); Chloride 96 mmol/L (96-108); Creatinine Clr Calc Pharmacy 9.6; Estimated Glomerular Filt Rate 8; Glucose Random 131 mg/dL (60-115); Phosphorus 3.2 mg/dL (2.7-4.5); Potassium 4.4 mmol/L (3.3-5.1); Sodium 131 mmol/L (135-145)
[2022-02-01 07:50] VITALS: BP 164/73; PULSE 75; RESP 20; TEMP 37.1; O2SAT 95
[2022-02-01] MEDS: Albuterol/Iprat 2.5/0.5MG 3 ML AMPUL.NEB INHALE ×2 (07:52→13:54)
[2022-02-01 07:53] VITALS: PULSE 91; RESP 20; O2SAT 96
[2022-02-01 08:00] VITALS: BMI 25.4
--- NOTE | 2022-02-01 09:20 | P.DS_ITS ---
DS: Providers Provider Date of Service: 02/01/22 Date of admission: 01/30/22 22:34 Primary care physician: Sammy Vicente MD Consults: 01/30/22 22:37 Consult to Nephrology Routine Consulting Provider: Christoph Koroma Reason for consultation: Needs HD in Am Has provider been notified: No DS: Summary Hospital Course Hospital Course: HPI from ICU mid level ?Patient with underlying history of end-stage renal disease who is supposed to be on hemodialysis Tuesdays and Saturdays however is well known to be [not] compliant with her dialysis treatment which has caused severe from respiratory failure leading to intubations in the past. Currently unable to tell us whether or not she had HD 2 days ago, has history of anasarca, ascites, bilateral lower extremity edema, diabetes, constipation, hypertension, COPD not on home O2, ischemic colitis, CHF with preserved ejection fraction among others. She presented today to the emergency room with complaints of reported altered mental status via EMS.? He was reported to them that the patient was extremely short of breath and lethargic. On arrival to the emergency room patient's blood pressure was 229/98 with heart rate of 112, arrived on BiPAP satting 94% with an FiO2 of 35%.? Reportedly her blood pressure had come down to 180/90 without treatment and the patient was taken off BiPAP. ?She had complaint of left lower quadrant abdominal discomfort which had started yesterday, CT of the abdomen and pelvis was obtained show no acute pathology other than large volume of stool throughout the colon suggesting constipation.? Possible pancreatic stranding versus motion artifact.? New small bilateral right and trace left pleural effusion.? New/worsened patchy bibasilar opacities.? The most sake lung attenuation with areas of ground-glass opacity and likely some degree of air trapping.? Persistent cardiomegaly.? Trace pericardial effusion..? Subsequently the patient was placed back on BiPAP after 30 minutes of being off it, albuterol treatments and fentanyl for work of breathing had been given. ? I was called to admit this patient, on arrival the patient had blood pressure above 190, was not able to answer my questions, seemed significantly lethargic with a heart rate in the 110s and on BiPAP 15/5 with FiO2 40%. Review of laboratory workup revealed a white count of 14.1, H&H of 12.1 and 35.9, platelet 247.? PTT 9.9 INR 0.9.? Venous blood gas pH 7.27 pCO2 49 PO2 167 HC03 of 23. Sodium 131 potassium 4.7 chloride 92 carbon dioxide 20 anion gap 24 BUN 29 crit, creatinine 6.88.? Troponin sensitivity 151 (chronically abnormal as high as 787.), BNP 4793 (lower than 7788 which is her prior baseline).? COVID negative. ?To my view her chest x-ray shows cardiomegaly with extensive pulmonary edema and small bilateral pleural effusions right greater than left. It seems that labetalol was not given even though it was ordered.? At this point I am concerned about the patient's well-being and I would rather transfer to the ICU, I have ordered nitropaste 1 inch paste while they can start her on nitroglycerin drip and immediate transfer to the ICU.? Hospital course: Mrs. Muller was admitted to ICU with hypertensive crisis, pulmonary edema, and respiratory failure. She is a 66 yo woman with ESRD on HD T, chino noncompliant with HD, hcino comes to [facility] ED for one day admission.? Has been intubated in the past for episodes such as the current one.? Past medical history also includes hypertension, diabetes, COPD not on home O2, CHFpEF, anasarca, bilateral lower extremity edema, ischemic colitis, and anemia.? Also a current everyday tobacco user, with history of heroin abuse. She presented with shortness of and chest pain and was found to be in acute respiratory failure and hypertension emergency and clinical finding of pulmonary edema. In the ED, she was lethargic, in acute respiratory distress.? She had marked JVD.? She had bilateral wheezing without obvious rales.? Blood pressure was 229/98, sat 94% on BiPAP 35%.? WBC was 14, BUN/creatinine 29/6.8, bicarb 20, potassium 4.7, lactic acid 1.5, troponin 160 and flat, BNP 4700.? VBG showed 7.27/49/-4.? Initial CXR (my reading) suggests pulmonary edema, later CXR confirmed it. The patient was put on BiPAP and admitted to ICU.? A TLC was placed and she was given high dose nitrates.? She was also given empiric Abx.? PCT was 1.3.? She was dialyzed, 3L taken off. She did well overnight and was dialyzed again the second day of hospitalization. she ? tolerated HD with no problem.? Post-HD, she?s fully awake and oriented and in no distress. On third day of hospitalization again doing well vital sings are stable. She is breathing comfortably and asking to go home. Final diagnoses: 1. ESRD, ? compliance with hemodialysis. 2. Hypertensive crisis.? 3. Acute pulmon edema.? 2? above. 4. Acute respiratory distress.? 2? above.? Resolved. 5. Acute asthma exacerbation.? 6. DM.? On SS insulin plus Lantus. 7. Opiate abuse.? On Suboxone.? I?ve restarted all of her home meds. Time Spent with Patient Time attestation: Total time spent providing and/or coordinating discharge services: Discharge coordination time: Greater than 30 minutes Quality: Safe Use of Opioids Does Pt have an Active Cancer Diagnosis on the Problem List?: No Quality: Stroke Does the patient have a stroke diagnosis?: No Physical Exam Vital Signs: Vital Signs: Last Vital Signs Temp 98.7 F 02/01/22 07:50 Pulse 91 02/01/22 07:53 Resp 20 02/01/22 07:53 BP 164/73 H 02/01/22 07:50 Pulse Ox 95 02/01/22 07:50 O2 Del Method 02/01/22 07:50 O2 Flow Rate 2 01/31/22 16:00 FiO2 40 01/31/22 06:00 Const: Other: General: AO X 3, no acute distress Resp: CTA bilateral CVS: S1,S2,RRR, no murmur and no edema GI: +BS, NT, no distention Skin: No rash Neuro: motor grossly intact Psych: appropriate affect DS: Data Data Completed and Pending Completed studies during hospitalization [Text1]: Procedures Assistance with Respiratory Ventilation, Less than 24 Consecutive Hours, Continuous Positive Airway Pressure (10/12/21) Excision of Left Kidney, Percutaneous Approach, Diagnostic (02/25/21) Excision of Right Kidney, Percutaneous Approach, Diagnostic (10/22/20) Insertion of Endotracheal Airway into Trachea, Via Natural or Artificial Opening (10/12/21) Insertion of Infusion Device into Right Atrium, Percutaneous Approach (10/12/21) Insertion of Infusion Device into Superior Vena Cava, Percutaneous Approach (02/25/21) Insertion of Tunneled Vascular Access Device into Chest Subcutaneous Tissue and Fascia, Percutaneous Approach (10/12/21) Performance of Urinary Filtration, Intermittent, Less than 6 Hours Per Day (10/12/21) Respiratory Ventilation, 24-96 Consecutive Hours (10/12/21) Transfusion of Nonautologous Red Blood Cells into Peripheral Vein, Percutaneous Approach (02/25/21) Labs on day of discharge: Laboratory Results - last 24 hr 01/31/22 01/31/22 02/01/22 16:42 20:52 05:33 WBC 7.7 RBC 3.33 L Hgb 9.7 L Hct 29.8 L MCV 89.5 MCH 29.1 MCHC 32.6 RDW 15.8 Plt Count 158 L D MPV 9.9 Absolute Nucleated RBC 0.000 Nucleated RBC % (auto) 0.0 Sodium Potassium Chloride Carbon Dioxide Anion Gap BUN Creatinine Estim Creat Clear Calc Estimated GFR POC Glucose 168 H 101 Random Glucose Calcium Phosphorus Magnesium B-Natriuretic Peptide 02/01/22 02/01/22 05:33 05:33 WBC RBC Hgb Hct MCV MCH MCHC RDW Plt Count MPV Absolute Nucleated RBC Nucleated RBC % (auto) Sodium 131 L Potassium 4.4 Chloride 96 Carbon Dioxide 24 Anion Gap 15 BUN 29 H Creatinine 5.13 H* Estim Creat Clear Calc 9.6 Estimated GFR 8 POC Glucose Random Glucose 131 H Calcium 8.2 L D Phosphorus 3.2 Magnesium 2.0 B-Natriuretic Peptide 1593 H Preliminary micro results at discharge 01/30/22 18:53 Blood Culture - Preliminary Blood - Venous No growth after 24 hours. 01/30/22 18:29 Blood Culture - Preliminary Blood - Venous No growth after 24 hours. Discharge Plan Discharge Anticipated Discharge Date/Time: 02/01/22 09:16 Patient Disposition: Home, Self-Care Discharge Diagnosis: Acute pulmonary edema, Hypertension emergency Referrals: Sammy Vicente MD [Primary Care Provider] - 1 Week Discharge Medications: Continued buprenorphine-naloxone [Suboxone] 8-2 mg film 1 strip sublingual BID diltiazem HCl 180 mg capsule,extended release 24hr 360 mg PO DAILY acetaminophen 500 mg Tablet 500 mg PO Q8H PRN (Reason: Pain, Mild) sevelamer carbonate 800 mg tablet 800 mg PO BIDWMEAL clonidine HCl 0.2 mg tablet 0.2 mg PO BID hydralazine 50 mg tablet 1 tab PO TID insulin aspart U-100 [Novolog PenFill U-100 Insulin] 100 unit/mL Cartridge 1 sliding scale dose SUBCUT USEASDIRECTD Protocol: Insulin Correction Scale Less than or equal to 110 ---- Give (units): 0 111 to 150 Give (units): 0 151 to 200 Give (units): 4 201 to 250 Give (units): 6 251 to 300 Give (units): 8 301 to 350 Give (units): 10 Greater than 350 Give (units): 12 Call MD if Blood Glucose > : 350 polyethylene glycol 3350 [Miralax] 17 gram/dose powder 17 g PO DAILY 30 Days Qty: 510 0RF docusate sodium [Colace] 100 mg capsule 100 mg PO BID PRN (Reason: Constipation) Qty: 30 0RF ondansetron 4 mg tablet,disintegrating 4 mg PO Q6H PRN (Reason: nausea and vomiting) Qty: 30 0RF amlodipine 10 mg Tablet 10 mg PO BEDTIME Qty: 30 0RF Protocol: Hold for SBP< HOLD for SBP < : 90 Rx Instructions: replaces prior dose of 5 mg daily bumetanide 2 mg Tablet 2 mg PO DAILY pantoprazole 40 mg Tablet,Delayed Release (Dr/Ec) 40 mg PO DAILY melatonin 5 mg Tablet 5 mg PO BEDTIME PRN (Reason: Sleep) [employer]-Sharifa Rx 1-60-300 mg-mg-mcg Tablet 1 tab PO DAILY fluticasone propionate [Flovent HFA] 110 mcg/actuation Hfa Aerosol Inhaler 1 puff INHALATION BID sennosides [senna] 8.6 mg tablet 1 - 2 tab PO BEDTIME PRN (Reason: constipation) insulin glargine [Lantus U-100 Insulin] 100 unit/mL solution 7 unit subcut DAILY isosorbide mononitrate 30 mg Tablet Extended Release 24 Hr 30 mg PO DAILY Qty: 30 0RF Protocol: Hold for SBP< HOLD for SBP < : 90 albuterol sulfate 2.5 mg /3 mL (0.083 %) solution for nebulization 3 ml inhalation TID PRN (Reason: Shortness Of Breath) aspirin 81 mg tablet,delayed release (DR/EC) 1 tab PO DAILY olanzapine 5 mg tablet 1 tab PO BEDTIME albuterol sulfate [Ventolin HFA] 90 mcg/actuation HFA aerosol inhaler 2 puff INHALATION Q4-6H PRN (Reason: wheezing) nicotine 7 mg/24 hr Patch 24 Hour 1 patch TRANSDERMAL Q24H Discharge Orders: Discharge Order (Routine); Ordered 02/01/22 Ordered By: Socrates Sykes Diet: Diabetic diet Activity on Discharge: As tolerated Stand Alone Forms: Patient Portal Discharge page Care Plan Goals: full recovery from pulmonary edema Health Concerns: ESRD, pulmonary edema Plan of Treatment: resume dialysis as before and take all medications as directed Assessment: as above
[2022-02-01] MEDS: Insulin Glargine,Hum.rec.anlog 100 UNIT/ML 10 ML VIAL 7 UNIT SUBCUT (10:50)
[2022-02-01] MEDS: polyethylene glycoL 3350 17 GM POWD.PACK PO (10:50)
[2022-02-01] MEDS: Buprenorphine/Naloxone 8/2 mg FILM 1 FILM SUBLINGUAL (10:51)
[2022-02-01] MEDS: Nicotine 7 MG PATCH.TD24 TRANSDERMA (10:51)
[2022-02-01] MEDS: Isosorbide Mononitrate 30 MG TAB.ER.24H PO (10:52)
[2022-02-01] MEDS: dilTIAZem HCL CD 180 MG CAP.ER.24H 360 MG PO (10:52)
[2022-02-01] MEDS: hydrALAZINE HCl 50 MG TABLET PO ×2 (10:52→17:35)
[2022-02-01] MEDS: Bumetanide 1 MG TABLET 2 MG PO (10:52)
[2022-02-01] MEDS: cloNIDine HCL 0.2 MG TABLET PO (10:52)
[2022-02-01] MEDS: Aspirin Enteric Coated 81 MG TABLET.DR PO (10:52)
[2022-02-01] MEDS: Sevelamer Carbonate Tablet 800 MG TABLET PO (10:53)
[2022-02-01] MEDS: amLODIPine Besylate 10 MG TABLET PO (10:53)
[2022-02-01] MEDS: Omeprazole 20 MG CAPSULE.DR PO (10:53)
[2022-02-01 11:41] VITALS: BP 146/71; PULSE 72; RESP 18; TEMP 36.9; O2SAT 95
--- NOTE | 2022-02-01 12:09 | MHC.CM.PN ---
IMM 01/31 Female 66 DX Resp Failure Pulm edema is discharge to home today. [facility] services will resume. She has arranged for transport home from her [facility].
[2022-02-01 13:55] VITALS: PULSE 94; RESP 18; O2SAT 97
--- NOTE | 2022-02-01 14:59 | CONS_ITS ---
DATE OF SERVICE: 01/31/2022 REASON FOR CONSULTATION: I was asked to see the patient to assist in evaluation and management of patient's acute respiratory decompensation on the back from an ESRD patient. HISTORY OF PRESENT ILLNESS: In summary, patient is a 66-year-old ESRD patient who normally gets dialysis Sunday, , Sunday, and more recently she has been pretty compliant with going to dialysis on routine basis. She presents to the hospital markedly short of breath and very hypertensive with a blood pressure 230/100. Patient was placed on BiPAP and respiratory status improved. She is placed on high-dose nitroglycerin and actually was ultrafiltrated overnight. The patient overall is doing a bit better. However, we are now dialyzing her again this morning to pull more fluid. As she is again on the high dose IV nitroglycerin and this will need to be tapered down as we try and pull fluid with dialysis. The patient has a history of recurrent episodes of acute respiratory failure, particularly due to hypertensive crisis, goes into pulmonary edema. PAST MEDICAL HISTORY: Notable for CHF, diabetes, hypertension, recurrent episodes of respiratory failure, and episodes of hypertensive emergencies. MEDICATIONS: Her medications on admission are noted in the admitting notes. SOCIAL HISTORY: She continues to smoke cigarettes. No alcohol or illicit drug use. FAMILY HISTORY: Notable for hypertension. REVIEW OF SYSTEMS: As noted above. CURRENT MEDICATIONS: Noted in the MAR. PHYSICAL EXAMINATION: GENERAL: Presently, she is on 2 L of nasal cannula oxygen. She is complaining of being hungry. VITAL SIGNS: Blood pressure 160/86. HEENT: Head is atraumatic and normocephalic. Mucous membranes are moist. LUNGS: Revealed rhonchi and decreased breath sounds at the bases. CARDIAC: Regular rate and rhythm. ABDOMEN: Soft, nontender. EXTREMITIES: Shows trace edema. LABORATORY DATA: Show hemoglobin 12.1, hematocrit 35.9, white count 14.1, platelet count 247. Sodium 131, potassium 4.7, chloride 92, bicarb 20. BNP level was 4700 on admission last night. IMPRESSION: 66-YEAR-OLD END-STAGE RENAL DISEASE PATIENT ADMITTED WITH HYPERTENSIVE CRISIS AND ACUTE PULMONARY EDEMA. 1. Acute pulmonary edema. This is due to a combination of hypertensive crisis along with being end-stage renal disease and volume overloaded. Her management continues with blood pressure control and high-dose IV nitroglycerin along with regular blood pressure medications and dialysis with fluid removal. Overall, she seems to be improving and she currently is on dialysis now to continue to pull fluid and keep her on the usual Sunday, , Sunday schedule. 2. End-stage renal disease. As mentioned, she is on dialysis now, keep her on Sunday, , Sunday schedule. 3. Recurrent episodes of spiking hypertension. It is unclear what precipitates these episodes. Whether there is medication noncompliance or something else that tips her over. SUGGESTIONS: At this time include dialysis that she is receiving now, pull fluid. Titrate down the IV nitroglycerin. Continue routine blood pressure medications. We will follow the patient closely with the team. MD BABAK White/GRACIE / [id number]
[2022-02-01 15:48] VITALS: BP 144/73; PULSE 74; RESP 18; TEMP 36.6; O2SAT 96
== END 2022-02-01 18:23 | disposition home or self-care (01) | DRG 640 ==
LOC: HO.ED 22:53 → HO.EDOVER 23:05 → HO.ICU 23:09 → HO.IMC 01-31 17:13
PROVIDERS: Anesthesiology; Admitting Provider Physician Assistant Medical; Emergency Provider Emergency Medicine; PCP Internal Medicine; Visit Provider Internal Medicine
DX: E87.70 Fluid overload, unspecified (principal); J81.0 Acute pulmonary edema; N18.6 End stage renal disease; J96.00 Acute respiratory failure, unspecified whether with hypoxia or hypercapnia; I13.2 Hypertensive heart and chronic kidney disease with heart failure and with stage 5 chronic kidney disease, or end stage renal disease; J44.1 Chronic obstructive pulmonary disease with (acute) exacerbation; I16.1 Hypertensive emergency; J45.901 Unspecified asthma with (acute) exacerbation; I50.32 Chronic diastolic (congestive) heart failure; E87.1 Hypo-osmolality and hyponatremia; E11.22 Type 2 diabetes mellitus with diabetic chronic kidney disease; K59.00 Constipation, unspecified; F11.29 Opioid dependence with unspecified opioid-induced disorder; F17.210 Nicotine dependence, cigarettes, uncomplicated; Z20.822 Contact with and (suspected) exposure to COVID-19; Z99.2 Dependence on renal dialysis; Z91.15 Patient's noncompliance with renal dialysis; Z71.6 Tobacco abuse counseling; Z79.4 Long term (current) use of insulin; Z79.51 Long term (current) use of inhaled steroids; Z79.82 Long term (current) use of aspirin; Z79.899 Other long term (current) drug therapy
CPT/HCPCS: 0241U; 36415; 71045; 74176; 80048; 80053; 82550; 82803; 82947; 83605; 83735; 83880; 84100; 84145; 84484; 85025; 85027; 85379; 85610; 87040; 90999; 93005; 94640; 94660; 96374; 96375; 99285; J0456; J0696; J1940; J2765; J2930; J3010

== ENCOUNTER 2022-03-09 16:18 | Inpatient (IN) | payer OTHER, SELFPAY ==
--- NOTE | ~2022-03-09 | XR_ITS ---
EXAMINATION: XR CHEST CLINICAL INFORMATION: ESRD, fluid overload. COMPARISON: 03/09/2022 chest radiograph. TECHNIQUE: Frontal view of the chest was obtained. FINDINGS: Support devices: Right-sided large-bore central venous catheter with tip terminating in the right atrium. There has been interval decrease in right infrahilar and basilar markings with persistent minimal blunting of the right costophrenic angle. Mild prominence of the pulmonary vasculature has decreased as well. The heart is mildly enlarged. The mediastinal structures are unremarkable. XR/XR chest 1V IMPRESSION: Mild interval decrease in pulmonary vascular and right basilar markings including very small right pleural effusion.
--- NOTE | ~2022-03-09 | XR_ITS ---
EXAMINATION: XR CHEST CLINICAL INFORMATION: Shortness of breath, COPD. COMPARISON: 01/31/2022 chest radiograph. TECHNIQUE: Frontal view of the chest was obtained. FINDINGS: Support devices: Right-sided large-bore central venous catheter with tip terminating at the cavoatrial junction. There are increased pulmonary vascular markings. Mild blunting of the costophrenic angles is seen, right greater than left. The heart is mildly enlarged. The mediastinal structures are unremarkable. XR/XR chest 1V IMPRESSION: Pulmonary vascular congestion and probable small bilateral pleural effusions appears similar if not mildly increased.
--- NOTE | ~2022-03-09 | XR_ITS ---
EXAMINATION: XR ABDOMEN KUB CLINICAL INDICATION: Constipation COMPARISON: KUB 08/30/2021 TECHNIQUE: AP view of the abdomen. FINDINGS: There appears to be a moderate to large amount of formed stool within transverse, right and descending colon. Small amount gas in the rectum. Scattered bowel gas and nondilated small bowel loops in the central abdomen. No gross large volume free air on this limited supine exam. No appreciable bowel wall thickening. No acute osseous injury. XR/XR abdomen 1V IMPRESSION: 1. Moderate to large amount of formed stool in the colon. 2. Nonobstructive bowel gas pattern.
--- NOTE | ~2022-03-09 | XR_ITS ---
EXAMINATION: XR ABDOMEN KUB CLINICAL INDICATION: Constipation. COMPARISON: 03/09/2022 abdominal radiograph. TECHNIQUE: AP view of the abdomen. FINDINGS: Mild interval increase in size of gas-filled loops of small bowel measuring up to 4.5 cm laterally in the left midabdomen. Moderate stool seen within the colon distally to the rectum. Mild to moderate multilevel marginal osteophyte formation is seen in the thoracolumbar spine. XR/XR KUB IMPRESSION: 1. Increased dilatation of small bowel loops. This could represent ileus however early or partial small bowel structure cannot be excluded. 2. Moderate colonic stool burden appears similar if not mildly increased.
[2022-03-09 16:32] VITALS: BP 180/82; BP 202/69; PULSE 90; PULSE 91; RESP 24; O2SAT 88; O2SAT 90; BMI 22.3
--- NOTE | 2022-03-09 16:38 | ECG_ITS ---
Test Reason : DYSPENEA Blood Pressure : / mmHG Vent. Rate : 095 BPM Atrial Rate : 095 BPM P-R Int : 166 ms QRS Dur : 090 ms QT Int : 340 ms P-R-T Axes : 055 -10 140 degrees QTc Int : 427 ms Normal sinus rhythm Possible Left atrial enlargement Left ventricular hypertrophy with repolarization abnormality ( R in aVL , Sokolow-Burton , Jona product ) Nonspecific ST abnormality Lateral leads Abnormal ECG When compared with ECG of 30-JAN-2022 18:10, ST now depressed in Lateral leads Referred By: Ovidio Persaud Electronically Signed By:CHRISTY AN MD
--- NOTE | 2022-03-09 16:38 | PC.NURSE ---
Dr Persaud to bedside for evaluation
--- NOTE | 2022-03-09 16:42 | ED_ITS ---
HPI - General Adult General Chief complaint: Dyspnea Stated complaint: SOB, Time Seen by Provider: 03/09/22 16:32 Source: patient Limitations: no limitations History of Present Illness HPI narrative: This is a 66-year-old female with a history of end-stage renal disease, reactive airway disease, who still smokes, who was sent in from dialysis with a complaint of shortness of breath, not feeling well. The patient notes that she has had a headache for a few days. She does feel short of breath and notes wheezing. She denies any cough or fever. She denies any abdominal pain. She has had nausea, denies vomiting. She has been constipated recently. She denies any swelling in her lower extremities. Related Data Home Medications Medication Instructions Recorded Confirmed buprenorphine 8 mg-naloxone 2 mg 1 strip sublingual BID 10/22/20 03/09/22 sublingual film (Suboxone) diltiazem HCl 180 mg 360 mg PO DAILY 10/22/20 03/09/22 capsule,extended release 24 hr bumetanide 2 mg tablet 2 mg PO DAILY 04/15/21 03/09/22 fluticasone propionate 110 1 puff inhalation BID 04/15/21 03/09/22 mcg/actuation HFA aerosol inhaler (Flovent HFA) melatonin 5 mg tablet 5 mg PO BEDTIME PRN Sleep 04/15/21 03/09/22 pantoprazole 40 mg tablet,delayed 40 mg PO DAILY 04/15/21 03/09/22 release vitamin B comp no.3-folic acid 1 1 tab PO DAILY 04/15/21 03/09/22 mg-vit C 60 mg-biotin 300 mcg tablet ([facility]) sennosides 8.6 mg tablet (senna) 1 - 2 tab PO BEDTIME PRN 05/11/21 03/09/22 constipation acetaminophen 500 mg tablet 500 mg PO Q8H PRN Pain, Mild 06/10/21 03/09/22 sevelamer carbonate 800 mg tablet 800 mg PO BIDWMEAL 06/10/21 03/09/22 clonidine HCl 0.2 mg tablet 0.2 mg PO BID 07/27/21 03/09/22 hydralazine 50 mg tablet 1 tab PO TID 07/27/21 03/09/22 insulin aspart U-100 100 unit/mL 1 sliding scale dose subcut 07/27/21 03/09/22 subcutaneous cartridge (Novolog USEASDIRECTD PenFill U-100 Insulin aspart) insulin glargine 100 unit/mL 7 unit subcut DAILY 09/18/21 03/09/22 subcutaneous solution (Lantus U-100 Insulin) albuterol sulfate 2.5 mg/3 mL 3 ml inhalation TID PRN Shortness 10/11/21 03/09/22 (0.083 %) solution for nebulization Of Breath aspirin 81 mg tablet,delayed 1 tab PO DAILY 10/11/21 03/09/22 release albuterol sulfate 90 mcg/actuation 2 puff inhalation Q4-6H PRN 01/31/22 03/09/22 aerosol inhaler (Ventolin HFA) wheezing nicotine 7 mg/24 hr daily 1 patch transdermal Q24H 01/31/22 03/09/22 transdermal patch olanzapine 5 mg tablet 1 tab PO BEDTIME 01/31/22 03/09/22 diclofenac sodium 1 % topical gel 2 g topical BID 03/09/22 03/09/22 ondansetron 4 mg disintegrating 4 mg PO BID PRN nausea and vomiting 03/09/22 03/09/22 tablet polyethylene glycol 3350 17 17 g PO DAILY PRN Constipation 03/09/22 03/09/22 gram/dose oral powder (Miralax) Previous Rx's Medication Instructions Recorded amlodipine 10 mg tablet 10 mg PO BEDTIME #30 tabs 03/07/21 isosorbide mononitrate 30 mg 30 mg PO DAILY #30 tabs 09/20/21 tablet,extended release 24 hr docusate sodium 100 mg capsule 100 mg PO BID PRN Constipation #30 12/04/21 (Colace) caps Allergies Allergy/AdvReac Type Severity Reaction Status Date / Time No Known Allergies Allergy Mild NOT Verified 10/10/21 20:00 APPLICABLE Review of Systems Review of Systems: Yes all other systems are reviewed and are negative Constitutional: Constitutional: Reports as per HPI and Denies fever(s) Eyes: Eyes: Reports as per HPI and Reports no additional eye complaints ENT: Reports system reviewed and no additional complaints, except as documented, Reports as per HPI, Denies nasal congestion, Denies nasal discharge and Denies sore throat Comments: Pain and itching to left ear Cardiovascular: Cardiovascular: Reports as per HPI, Denies chest pain and Reports dyspnea Respiratory: Respiratory: Reports as per HPI, Denies cough and Reports dyspnea Gastrointestinal: Gastrointestinal: Reports as per HPI, Denies abdominal pain, Reports constipation, Denies diarrhea, Reports nausea and Denies vomiting Musculoskeletal: Musculoskeletal: Reports no additional musculoskeletal complaints and Reports numbness Integumentary/Breasts: Skin/Breast: Reports as per HPI and Denies rash Neurologic: Reports as per HPI, Denies focal weakness and Reports numbness Psychiatric: Psychiatric: Reports no additional psychiatric complaints and Reports as per HPI Endocrine: Endocrine: Reports no additional endocrine complaints and Reports as per HPI Hematologic/Lymphatic: Hematologic/Lymphatic: Reports no additional hematologic/lymphatic complaints, Reports as per HPI and Reports other (No peripheral edema) [facility] Past Medical History Medical History Abdominal pain Anasarca Anemia in chronic kidney disease Ascites Bilateral edema of lower extremity Constipation Diabetes mellitus End stage renal disease on dialysis Essential hypertension Heart failure with preserved ejection fraction HTN (hypertension) Non-compliance Surgical History No pertinent past surgical history Family History Family History Other Hypertension Social History Social History Household Members: None Housing: Apartment Do you presently have visiting nurse or other home services: Yes Alcohol intake: unknown Patient Tobacco Use Status: Current someday Tobacco user Tobacco use type: Cigarette Cigarette Packs Per Day: 1 Cigarettes Per Day: 5 Years Smoked: 18 e-Cigarette/Vaping Use: Never Used Second Hand Smoke Exposure: No Substance Use Type: Heroin Advance Directives: No Advance Directives Information Provided: Yes Advance Directives Date on File: 04/20/21 service: No Current occupational status: unemployed and disabled Physical Exam ED Vital Signs: Vital Signs - 24 hr 03/09/22 16:32 03/09/22 16:50 03/09/22 19:32 Temperature 98.5 F Pulse Rate 91 84 96 Respiratory Rate 24 H 24 H 18 Blood Pressure 202/69 H 189/77 H Pulse Oximetry 88 L 92 Oxygen Delivery Method Nasal Cannula Nasal Cannula Oxygen Flow Rate 3 03/09/22 20:59 03/09/22 23:28 Temperature 98.4 F Pulse Rate 92 90 Respiratory Rate 15 Blood Pressure 189/77 H 195/88 H Pulse Oximetry 100 Oxygen Delivery Method Nasal Cannula Oxygen Flow Rate 5 BMI result Body Mass Index 22.3 Const Other: Patient not in distress, does appear somewhat pale General: no acute distress Orientation/consciousness: patient oriented x3 [facility]: Yes normal to inspection General nose exam: Normal external nose present Mouth: moist mucous membranes Throat: Yes posterior oropharynx normal, Yes tonsils normal and Yes uvula midline Eyes Eyelids: Yes eyelids normal Conjunctivae: conjunctivae normal Pupils: Equal, round and reactive pupils present Neck Neck: Yes supple Resp Effort & Inspection: normal respiratory effort Auscultation: not clear to auscultation bilaterally and wheezes expiratory wheezes Cardio Rate: regular rate Rhythm: regular rhythm Heart sounds: S1 normal heart sound present, S2 normal heart sound present, no gallops, no murmurs and no rubs GI Inspection: No distended Palpation (GI): Soft to palpation and nontender Auscultation: normal bowel sounds Skin General skin exam: other (Warm and dry) Neuro General: patient oriented x3 and CN's II-XI intact bilaterally Cranial nerves: Yes Equal, round and reactive pupils present Extrem General: Yes no pedal edema Psych Affect: normal affect Attitude: cooperative Medical Decision Making [facility] Narrative Medical decision making narrative: Patient with dyspnea and nausea after dialysis, had been dyspneic even for dialysis. Patient does have history of COPD and did have decreased breath sounds and wheezing on exam. Patient did improve with DuoNeb and 2 albuterol nebs. Patient was also given some Medrol 80 mg IV. Chest x-ray did show mild congestion, up slightly worse than prior. BNP is elevated, though in the setting of renal failure this is difficult to rely on. BNP is more elevated than it had been prior evaluation. Troponin is mildly elevated but has been in that range before, is actually lower than other baseline values. Patient was treated with Bumex 0.5 mg IV as well as nitroglycerin paste for possible mild CHF. Patient also may have an element of dyspnea and feeling unwell due to her anemia, since her hematocrit has been trending down is now 25. Patient also reports constipation and abdominal plain film did show stool throughout the colon. Patient is being admitted to the hospitalist service, Dr. Torres accepting Critical care time for this life-threatening illness exclusive of all other billable procedures was approximately 35 minutes including initial evaluation of the patient, ordering tests, x-ray interpretation, EKG interpretation, medical consultation, documentation, reevaluation. Lab Data Lab results reviewed: Yes I reviewed the patient's lab results. Result diagrams: 03/09/22 18:23 03/09/22 18:23 Labs: Lab Results 03/09/22 03/09/22 03/09/22 Range/Units 18:23 18:23 19:59 WBC 6.9 (4.8-10.8) X10*3/uL RBC 2.83 L (4.20-5.50) X10*6/uL Hgb 8.2 L (12.0-16.0) g/dl Hct 25.3 L (37.0-47.0) % MCV 89.4 (80.0-98.0) fL MCH 29.0 (27.0-33.0) pg MCHC 32.4 (31.0-35.0) g/dl RDW 15.1 (11.0-16.0) % Plt Count 149 L (160-400) X10*3/uL MPV 10.2 (9.4-12.3) fL Immature Gran % (Auto) 0.3 (0.0-0.4) % Neut % (Auto) 78.7 H (45-73) % Lymph % (Auto) 13.2 L (20-40) % [place] % (Auto) 6.5 (2-11) % Eos % (Auto) 1.2 (0-4) % Baso % (Auto) 0.1 (0-2) % Lymph # (Auto) 0.9 L (1.2-4.9) X10*3/uL [place] # (Auto) 0.5 (0.1-1.2) X10*3/uL Eos # (Auto) 0.1 (0.0-0.4) X10*3/uL Baso # (Auto) 0.0 (0.0-0.2) X10*3/uL Abs Immat Gran (auto) 0.02 (0.00-0.03) X10*3/uL Absolute Neuts (auto) 5.4 (2.0-8.3) x10*3/uL Absolute Nucleated RBC 0.000 (0.0-0.012) X10*3/uL Nucleated RBC % (auto) 0.0 (0.0-0.2) /100WBC Sodium 141 (135-145) mmol/L Potassium 3.1 L D (3.3-5.1) mmol/L Chloride 99 (96-108) mmol/L Carbon Dioxide 28 (22-29) mmol/L Anion Gap 17 (12-20) BUN 9 D (9-16) mg/dL Creatinine 2.99 H (0.5-1.4) mg/dL Estim Creat Clear Calc 16.8 Estimated GFR 16 Random Glucose 183 H (60-115) mg/dL Calcium 8.9 D (8.4-10.2) mg/dL Total Bilirubin 0.6 (0.0-1.0) mg/dL AST 24 D (5-31) U/L ALT 13 (0-31) U/L Alkaline Phosphatase 141 H D (39-117) U/L Troponin I High Sens (<3.5-17.0) ng/L B-Natriuretic Peptide 3377 H (<100) pg/mL Total Protein 7.1 (6.5-8.0) g/dL Albumin 4.3 (3.5-5.0) g/dL COVID-19 ([facility]) (Negative) COVID-19 Clin Com 03/09/22 03/09/22 Range/Units 19:59 19:59 WBC (4.8-10.8) X10*3/uL RBC (4.20-5.50) X10*6/uL Hgb (12.0-16.0) g/dl Hct (37.0-47.0) % MCV (80.0-98.0) fL MCH (27.0-33.0) pg MCHC (31.0-35.0) g/dl RDW (11.0-16.0) % Plt Count (160-400) X10*3/uL MPV (9.4-12.3) fL Immature Gran % (Auto) (0.0-0.4) % Neut % (Auto) (45-73) % Lymph % (Auto) (20-40) % [place] % (Auto) (2-11) % Eos % (Auto) (0-4) % Baso % (Auto) (0-2) % Lymph # (Auto) (1.2-4.9) X10*3/uL [place] # (Auto) (0.1-1.2) X10*3/uL Eos # (Auto) (0.0-0.4) X10*3/uL Baso # (Auto) (0.0-0.2) X10*3/uL Abs Immat Gran (auto) (0.00-0.03) X10*3/uL Absolute Neuts (auto) (2.0-8.3) x10*3/uL Absolute Nucleated RBC (0.0-0.012) X10*3/uL Nucleated RBC % (auto) (0.0-0.2) /100WBC Sodium (135-145) mmol/L Potassium (3.3-5.1) mmol/L Chloride (96-108) mmol/L Carbon Dioxide (22-29) mmol/L Anion Gap (12-20) BUN (9-16) mg/dL Creatinine (0.5-1.4) mg/dL Estim Creat Clear Calc Estimated GFR Random Glucose (60-115) mg/dL Calcium (8.4-10.2) mg/dL Total Bilirubin (0.0-1.0) mg/dL AST (5-31) U/L ALT (0-31) U/L Alkaline Phosphatase (39-117) U/L Troponin I High Sens 96.5 H* (<3.5-17.0) ng/L B-Natriuretic Peptide (<100) pg/mL Total Protein (6.5-8.0) g/dL Albumin (3.5-5.0) g/dL COVID-19 ([facility]) Negative (Negative) COVID-19 Clin Com See Note Imaging Data Chest x-ray: Radiologist's impression: IMPRESSION: Pulmonary vascular congestion and probable small bilateral pleural effusions appears similar if not mildly increased. Abdominal x-ray: Radiologist's impression: 1.? Moderate to large amount of formed stool in the colon. 2.? Nonobstructive bowel gas pattern. ECG Data Attestation: I personally reviewed and interpreted this ECG as follows: Interpretation: Normal sinus rhythm with a rate of 95. LVH with associated repolarization abnormality. EKG appears grossly similar to 1 dated 01/30/2022. PVC present. Discharge Plan Discharge Clinical Impression: Acute exacerbation of chronic obstructive pulmonary disease (COPD), Anemia, Congestive heart failure (CHF), End stage chronic kidney disease Patient Disposition: Admitted As Inpatient
[2022-03-09 16:50] VITALS: PULSE 84; RESP 24; O2SAT 91
[2022-03-09] MEDS: Albuterol/Iprat 2.5/0.5MG 3 ML AMPUL.NEB 6 ML INHALE (16:50)
[2022-03-09] MEDS: Albuterol/Iprat 2.5/0.5MG 3 ML AMPUL.NEB INHALE (16:50)
[2022-03-09 18:29] LABS: MANUAL DIFF FLAG NO
[2022-03-09 18:31] LABS: Hemoglobin 8.2 g/dl (12.0-16.0); Red Blood Count 2.83 X10*6/uL (4.20-5.50); White Blood Count 6.9 X10*3/uL (4.8-10.8)
[2022-03-09 18:32] LABS: Basophils Percent Auto 0.1 % (0-2); Eosinophils Absolute Auto 0.1 X10*3/uL (0.0-0.4); Eosinophils Percent Auto 1.2 % (0-4); Hematocrit 25.3 % (37.0-47.0); Imm Gran Abs Auto 0.02 X10*3/uL (0.00-0.03); Imm Gran Pct Auto 0.3 % (0.0-0.4); Lymphocytes Absolute Auto 0.9 X10*3/uL (1.2-4.9); Lymphocytes Percent Auto 13.2 % (20-40); Mean Corpuscular HGB Conc 32.4 g/dl (31.0-35.0); Mean Corpuscular Volume 89.4 fL (80.0-98.0); Mean Platelet Volume 10.2 fL (9.4-12.3); Monocytes Absolute Auto 0.5 X10*3/uL (0.1-1.2); Monocytes Percent Auto 6.5 % (2-11); Neutrophils Absolute Auto 5.4 x10*3/uL (2.0-8.3); Neutrophils Percent Auto 78.7 % (45-73); Platelet Count 149 X10*3/uL (160-400); Red Cell Distribution Width 15.1 % (11.0-16.0)
[2022-03-09 18:52] LABS: Alanine Aminotransferase 13 U/L (0-31); Albumin Level 4.3 g/dL (3.5-5.0); Alkaline Phosphatase 141 U/L (39-117); Anion Gap 17 (12-20); Aspartate Amino Transferase 24 U/L (5-31); Bilirubin Total 0.6 mg/dL (0.0-1.0); Blood Urea Nitrogen 9 mg/dL (9-16); Calcium 8.9 mg/dL (8.4-10.2); Carbon Dioxide 28 mmol/L (22-29); Chloride 99 mmol/L (96-108); Creatinine Clr Calc Pharmacy 16.8; Estimated Glomerular Filt Rate 16; Glucose Random 183 mg/dL (60-115); Potassium 3.1 mmol/L (3.3-5.1); Sodium 141 mmol/L (135-145); Total Protein 7.1 g/dL (6.5-8.0)
[2022-03-09] MEDS: methylPREDNISolone Sod Succ 125 MG/2 ML VIAL 80 MG IVPUSH (19:03)
[2022-03-09 19:32] VITALS: BP 189/77; PULSE 96; RESP 18; TEMP 36.9; O2SAT 92
[2022-03-09 20:28] LABS: B Type Natriuretic Peptide 3377 pg/mL (<100)
[2022-03-09 20:40] LABS: COVID-19 Test Negative (Negative)
[2022-03-09 20:41] LABS: Troponin-I High Sensitivity 96.5 ng/L (<3.5-17.0)
[2022-03-09] MEDS: hydrOXYzine HCL 25 MG TABLET PO (20:56)
[2022-03-09] MEDS: Bumetanide 1 MG/4 ML VIAL 0.5 MG IVPUSH (20:57)
[2022-03-09 20:59] VITALS: BP 189/77; PULSE 92
[2022-03-09] MEDS: Nitroglycerin 2 % Oint 1 GM Packet 0.5 INCH TRANSDERMA (20:59)
--- NOTE | 2022-03-09 22:08 | PHA.MEDREC ---
Pharmacy Consult ? Medication Reconciliation Pharmacy has completed the medication reconciliation.
[2022-03-09 23:28] VITALS: BP 195/88; PULSE 90; RESP 15; TEMP 36.9; O2SAT 100
[2022-03-10] VITALS (11 sets, daily range): BP systolic 154–183; BP diastolic 61–84; PULSE 70–108; RESP 15–30; TEMP 36.2–37.3; O2SAT 92–100
--- NOTE | 2022-03-10 00:15 | PM.IMHP ---
History of Present Illness Date of Service: 03/10/22 Chief Complaint: n/v 66-year-old female with extensive past medical history that includes ESRD on dialysis, CHF, diabetes, history of CAD status post NSTEMI, asthma, hypertension, presents to the hospital from dialysis with reported shortness of breath. Patient is Yi-speaking, history is obtained with the help of an motor vehicle parts interpreter. Patient reports that she has been having nausea and vomiting for the past 3-4 days, poor oral intake as a result, she has not been drinking or eating well due to that, she reports shortness of breath, no cough, no sputum production, reports decreased urine output. Reports constipation for past 1 week with no bowel movement. She is passing gas. She denies any chest pain, no lower extremity edema. Of note patient was found to be hypoxic satting 89% on 4 L of oxygen. On arrival to the ED patient hemodynamically stable with elevated blood pressure Labs are significant for the RBC count of 6.9, hemoglobin of 8.2, hematocrit of 25.3, creatinine of 2.99, troponin 96.5 which is chronically elevated, BNP of 3377 Abdominal x-ray shows moderate to large amount of formed stool in the colon, nonobstructive bowel gas pattern Chest x-ray shows pulmonary vascular congestion and small bilateral pleural effusions Apparently patient still produces urine, so she received Bumex IV in the ED and will be admitted for further management Review of Systems Review of Systems: Yes all other systems are reviewed and are negative [facility] [place] Medical History Abdominal pain Acute exacerbation of chronic obstructive airways disease Anasarca Anemia in chronic kidney disease Ascites Bilateral edema of lower extremity Constipation Diabetes mellitus End stage renal disease on dialysis Essential hypertension Heart failure with preserved ejection fraction HTN (hypertension) Non-compliance Family History Other Hypertension Surgical History No pertinent past surgical history Social History Household Members: None Housing: Apartment Do you presently have visiting nurse or other home services: Yes Alcohol intake: unknown Patient Tobacco Use Status: Current someday Tobacco user Tobacco use type: Cigarette Cigarette Packs Per Day: 1 Cigarettes Per Day: 5 Years Smoked: 18 e-Cigarette/Vaping Use: Never Used Second Hand Smoke Exposure: No Substance Use Type: Heroin Advance Directives: No Advance Directives Information Provided: Yes Advance Directives Date on File: 04/20/21 service: No Current occupational status: unemployed and disabled Meds Allergies Allergy/AdvReac Type Severity Reaction Status Date / Time No Known Allergies Allergy Mild NOT Verified 10/10/21 20:00 APPLICABLE Home Medications Medication Instructions Recorded Confirmed Last Taken Type buprenorphine 8 mg-naloxone 2 mg 1 strip sublingual BID 10/22/20 03/09/22 10/12/21 History sublingual film (Suboxone) diltiazem HCl 180 mg 360 mg PO DAILY 10/22/20 03/09/22 10/12/21 History capsule,extended release 24 hr bumetanide 2 mg tablet 2 mg PO DAILY 04/15/21 03/09/22 10/12/21 History fluticasone propionate 110 1 puff inhalation BID 04/15/21 03/09/22 Unknown History mcg/actuation HFA aerosol inhaler (Flovent HFA) melatonin 5 mg tablet 5 mg PO BEDTIME PRN Sleep 04/15/21 03/09/22 Unknown History pantoprazole 40 mg tablet,delayed 40 mg PO DAILY 04/15/21 03/09/22 Unknown History release vitamin B comp no.3-folic acid 1 1 tab PO DAILY 04/15/21 03/09/22 Unknown History mg-vit C 60 mg-biotin 300 mcg tablet ([employer]) sennosides 8.6 mg tablet (senna) 1 - 2 tab PO BEDTIME PRN 05/11/21 03/09/22 Unknown History constipation acetaminophen 500 mg tablet 500 mg PO Q8H PRN Pain, Mild 06/10/21 03/09/22 Unknown History sevelamer carbonate 800 mg tablet 800 mg PO BIDWMEAL 06/10/21 03/09/22 10/12/21 History clonidine HCl 0.2 mg tablet 0.2 mg PO BID 07/27/21 03/09/22 10/12/21 History hydralazine 50 mg tablet 1 tab PO TID 07/27/21 03/09/22 10/12/21 History insulin aspart U-100 100 unit/mL 1 sliding scale dose subcut 07/27/21 03/09/22 10/12/21 History subcutaneous cartridge (Novolog USEASDIRECTD PenFill U-100 Insulin aspart) insulin glargine 100 unit/mL 7 unit subcut DAILY 09/18/21 03/09/22 10/12/21 History subcutaneous solution (Lantus U-100 Insulin) albuterol sulfate 2.5 mg/3 mL 3 ml inhalation TID PRN Shortness 10/11/21 03/09/22 Unknown History (0.083 %) solution for nebulization Of Breath aspirin 81 mg tablet,delayed 1 tab PO DAILY 10/11/21 03/09/22 10/12/21 History release albuterol sulfate 90 mcg/actuation 2 puff inhalation Q4-6H PRN 01/31/22 03/09/22 Unknown History aerosol inhaler (Ventolin HFA) wheezing nicotine 7 mg/24 hr daily 1 patch transdermal Q24H 01/31/22 03/09/22 Unknown History transdermal patch olanzapine 5 mg tablet 1 tab PO BEDTIME 01/31/22 03/09/22 Unknown History diclofenac sodium 1 % topical gel 2 g topical BID 03/09/22 03/09/22 Unknown History ondansetron 4 mg disintegrating 4 mg PO BID PRN nausea and vomiting 03/09/22 03/09/22 Unknown History tablet polyethylene glycol 3350 17 17 g PO DAILY PRN Constipation 03/09/22 03/09/22 Unknown History gram/dose oral powder (Miralax) Physical Exam Vital Signs and Narrative: Vital Signs: Last Vital Signs Temp 98.4 F 03/09/22 23:28 Pulse 90 03/09/22 23:28 Resp 15 03/09/22 23:28 BP 195/88 H 03/09/22 23:28 Pulse Ox 100 03/09/22 23:28 O2 Del Method 03/09/22 23:28 O2 Flow Rate 5 03/09/22 23:28 Oxygen Flow Rate 4 03/09/22 16:32 BMI result Body Mass Index 22.3 Const: Other: She has dyspnea, on talking, sitting upright, appears uncomfortable General: cooperative and no acute distress Orientation/consciousness: patient oriented x3 Eyes: General: appearance normal, both eyes and all related structures Pupils: Equal, round and reactive pupils present Resp: Other: Diminished breath sounds Effort & Inspection: normal respiratory effort Cardio: Rate: regular rate Rhythm: regular rhythm GI: Other: Abdomen distended, tender on palpation, has guarding Palpation (GI): Soft to palpation Skin: General skin exam: no rashes or lesions noted Neuro: General: patient oriented x3 Cranial nerves: Yes Equal, round and reactive pupils present Cognition (Neuro): normal cognition Extrem: General: Yes normal to inspection and Yes no pedal edema Results Labs CBC and Chem 7: 03/09/22 18:23 03/09/22 18:23 Labs: Laboratory Results - last 24 hr 03/09/22 03/09/22 03/09/22 18:23 18:23 19:59 MCV 89.4 MCH 29.0 MCHC 32.4 RDW 15.1 Plt Count 149 L MPV 10.2 Immature Gran % (Auto) 0.3 Neut % (Auto) 78.7 H Lymph % (Auto) 13.2 L [place] % (Auto) 6.5 Eos % (Auto) 1.2 Baso % (Auto) 0.1 Lymph # (Auto) 0.9 L [place] # (Auto) 0.5 Eos # (Auto) 0.1 Baso # (Auto) 0.0 Abs Immat Gran (auto) 0.02 Absolute Neuts (auto) 5.4 Absolute Nucleated RBC 0.000 Nucleated RBC % (auto) 0.0 Anion Gap 17 Estim Creat Clear Calc 16.8 Estimated GFR 16 Random Glucose 183 H Calcium 8.9 D Total Bilirubin 0.6 AST 24 D ALT 13 Alkaline Phosphatase 141 H D Troponin I High Sens B-Natriuretic Peptide 3377 H Total Protein 7.1 Albumin 4.3 COVID-19 ([facility]) COVID-19 Clin Com 03/09/22 03/09/22 19:59 19:59 MCV MCH MCHC RDW Plt Count MPV Immature Gran % (Auto) Neut % (Auto) Lymph % (Auto) [place] % (Auto) Eos % (Auto) Baso % (Auto) Lymph # (Auto) [place] # (Auto) Eos # (Auto) Baso # (Auto) Abs Immat Gran (auto) Absolute Neuts (auto) Absolute Nucleated RBC Nucleated RBC % (auto) Anion Gap Estim Creat Clear Calc Estimated GFR Random Glucose Calcium Total Bilirubin AST ALT Alkaline Phosphatase Troponin I High Sens 96.5 H* B-Natriuretic Peptide Total Protein Albumin COVID-19 ([facility]YSTINA) Negative COVID-19 Clin Com See Note Imaging Radiologist's Impressions: Impressions Chest X-Ray 03/09/22 17:12 IMPRESSION: Pulmonary vascular congestion and probable small bilateral pleural effusions appears similar if not mildly increased. Abdomen X-Ray 03/09/22 22:45 IMPRESSION: 1. Moderate to large amount of formed stool in the colon. 2. Nonobstructive bowel gas pattern. Assessment and Plan (1) Acute respiratory failure with hypoxia: Status: Acute (2) Congestive heart failure (CHF): Status: Acute (3) Constipation: Status: Acute (4) Abdominal pain: Status: Acute (5) Nausea & vomiting: Status: Acute Plan 66-year-old female with past medical history of CHF, ESRD on dialysis presents the hospital with nausea vomiting as well as dyspnea found to have CHF exacerbation # acute hypoxic respiratory failure - likely secondary to acute CHF exacerbation - has no cough, no sputum production, there for COPD exacerbation less likely - has elevated BNP - according to record patient did complete dialysis on day of presentation - received IV Bumex in the ED with minimal urine output - at this time will place her on low-sodium diet, strict I&O, daily weight - will re-consult Nephrology for dialysis as patient is not producing much urine and will of require dialysis to remove volume # abdominal pain nausea vomiting - acute - has significant constipation - replace on bowel regimen - monitor bowel movement as this may develop into small bowel obstruction # acute CHF exacerbation - has elevated BNP, evidence of volume overload on chest x-ray - will treat with dialysis # hypertensive - elevated BP - resume home antihypertensives # COPD - acute exacerbation - continue home inhalers # diabetes - low-dose sliding scale insulin - continue home insulin DVT prophylaxis: Heparin subQ Pt will require a minimum 2 night hospital stay for management of acute CHF exacerbation requiring dialysis Quality Stroke Does the patient have a stroke diagnosis?: No VTE Prior VTE?: No VTE Risk Level:: Medical - moderate - high VTE Device Contraindication: Treatment Not Indicated VTE Drug Contraindication: N/A - Med Ordered
[2022-03-10] MEDS: Potassium Chloride Packet 20 MEQ PACKET 40 MEQ PO ×2 (00:58→06:12)
[2022-03-10] MEDS: amLODIPine Besylate 10 MG TABLET PO ×2 (00:59→20:14)
[2022-03-10] MEDS: polyethylene glycoL 3350 17 GM POWD.PACK PO ×3 (00:59→17:13)
[2022-03-10] MEDS: Heparin Sodium,Porcine 5,000 UNIT/ML VIAL 5000 UNIT SUBCUT ×3 (00:59→23:48)
[2022-03-10] MEDS: Milk of Magnesia 30 ML ORAL.SUSP 15 ML PO (00:59)
[2022-03-10] MEDS: hydrALAZINE HCl 50 MG TABLET PO ×4 (01:00→20:14)
[2022-03-10] MEDS: cloNIDine HCL 0.2 MG TABLET PO ×3 (01:00→20:14)
[2022-03-10] MEDS: Albuterol/Iprat 2.5/0.5MG 3 ML AMPUL.NEB INHALE (06:12)
--- NOTE | 2022-03-10 06:14 | PC.NURSE ---
RN to bedside to answer call cruz and pt's outward calls for assistance. UPon arrival to bedside pt found to be moaning, sitting upright and speaking in [place]. senior manufacturing test engineer called to bedside to assist with interpretation needs, pt reports presence of shortness of breath and denies any chest pain and/or discomfort. Pt noted to be diaphoretic, O2 sats low 90s on 4LPM via NC. RT called but due to pt's presentation, reports and increased distress RN administered Duoneb at bedside without RT present. Pt noted to have ins/exp wheezes throughout and wet in the bilateral bases prior to treatment.
--- NOTE | 2022-03-10 06:53 | PC.NURSE ---
Pt currently resting comfortably in stretcher with eyes closed, respirations even and unlabored without distress noted. Pt with resolution of work of breathing and diaphoretic presentation. SNR on the chief general pediatric clinic, O2 in the high 90s on 4lpm via NC and pt remains hypertensive with BP 180s systolic without associated symptoms. Call cruz is in reach and RN will monitor.
[2022-03-10] MEDS: Fluticasone Propionate 100 MCG BLST.W.DEV 1 PUFF INHALE ×2 (07:52→20:16)
[2022-03-10] MEDS: dilTIAZem HCL CD 180 MG CAP.ER.24H 360 MG PO (08:08)
[2022-03-10] MEDS: Multivitamin TABLET 1 TAB PO (08:08)
[2022-03-10] MEDS: Aspirin Enteric Coated 81 MG TABLET.DR PO (08:09)
[2022-03-10] MEDS: Omeprazole 20 MG CAPSULE.DR PO (08:09)
[2022-03-10] MEDS: Isosorbide Mononitrate 30 MG TAB.ER.24H PO (08:09)
[2022-03-10] MEDS: Docusate Sodium 100 MG CAPSULE PO ×2 (08:09→20:14)
[2022-03-10] MEDS: Insulin Glargine,Hum.rec.anlog 100 UNIT/ML 10 ML VIAL 7 UNIT SUBCUT (08:10)
[2022-03-10] MEDS: Buprenorphine/Naloxone 8/2 mg FILM 1 FILM SUBLINGUAL ×2 (08:10→20:13)
[2022-03-10 08:14] LABS: MANUAL DIFF FLAG NO
[2022-03-10 08:15] LABS: Hematocrit 25.2 % (37.0-47.0); Hemoglobin 8.1 g/dl (12.0-16.0); Imm Gran Abs Auto 0.02 X10*3/uL (0.00-0.03); Imm Gran Pct Auto 0.4 % (0.0-0.4); Lymphocytes Absolute Auto 0.3 X10*3/uL (1.2-4.9); Mean Corpuscular HGB Conc 32.1 g/dl (31.0-35.0); Mean Corpuscular Volume 90.3 fL (80.0-98.0); Monocytes Absolute Auto 0.2 X10*3/uL (0.1-1.2); Monocytes Percent Auto 3.7 % (2-11); Neutrophils Absolute Auto 5.1 x10*3/uL (2.0-8.3); Neutrophils Percent Auto 89.9 % (45-73); Platelet Count 146 X10*3/uL (160-400); Red Blood Count 2.79 X10*6/uL (4.20-5.50); Red Cell Distribution Width 15.3 % (11.0-16.0); White Blood Count 5.7 X10*3/uL (4.8-10.8)
[2022-03-10 08:21] LABS: Glucose, Whole Blood 312 mg/dL (60-115)
[2022-03-10] MEDS: Nicotine 7 MG PATCH.TD24 TRANSDERMA ×2 (08:29→23:48)
[2022-03-10 08:33] LABS: Anion Gap 19 (12-20); Blood Urea Nitrogen 18 mg/dL (9-16); Calcium 9.2 mg/dL (8.4-10.2); Carbon Dioxide 28 mmol/L (22-29); Chloride 97 mmol/L (96-108); Creatinine Clr Calc Pharmacy 11.3; Estimated Glomerular Filt Rate 10; Glucose Random 351 mg/dL (60-115); Potassium 4.7 mmol/L (3.3-5.1); Sodium 139 mmol/L (135-145)
[2022-03-10] MEDS: 0.9 % Sodium Chloride Flush 3 ML SYRINGE IVFLUSH ×3 (08:47→23:51)
--- NOTE | 2022-03-10 08:49 | PM.EVENT ---
Event Note Date of Service: 03/10/22 Event Note: Patient already been seen by hospitalist service this morning Seen with her again-still somewhat sob. Abdomen brain is slightly better, feel nauseated but no vomiting Physical exam: Physical says exam similar to before abd : less discomfort ,soft, bs present,no rebound or guardin Assessment and plan coordinated in H&P note Shortness of breaths possible related to CHF/ESRD with fluid overload in the setting of uncontrolled blood pressure-patient had similar presentation recently also. ? Noncompliance with meds and fluids even though patient says that she takes everything After hemodialysis was feeling better than before. Constipation-laxative adjusted, also added enema
[2022-03-10] MEDS: Insulin Lispro 100 UNIT/ML 3 ML VIAL SUBCUT ×2 (09:12→20:19)
--- NOTE | 2022-03-10 09:24 | PC.NURSE ---
EMS HERE FOR TRANSPORT TO [facility] NURSE TO NURSE GIVEN TO CELIO MADRID IN THE ED THERE . FAROESE SPEAKING STAFF UPDATED THE PATIENT ON THE PROCESS OF THE TRANSFER. BLS CREW THEREFORE IV FLUIDS WERE D/C.
--- NOTE | 2022-03-10 11:06 | PC.NURSE ---
pt off unit to dialysis
[2022-03-10 15:26] LABS: Alanine Aminotransferase 15 U/L (0-31); Albumin Level 4.3 g/dL (3.5-5.0); Alkaline Phosphatase 144 U/L (39-117); Aspartate Amino Transferase 26 U/L (5-31); Bilirubin Direct 0.2 mg/dL (0.0-0.5); Bilirubin Total 0.5 mg/dL (0.0-1.0); Iron 47 mcg/dL (30-160); Percent Iron Saturation 17 % (15-50); Total Iron Binding Capacity 270 mcg/dL (228-428); Total Protein 7.2 g/dL (6.5-8.0); Unsaturated Iron Binding 223 ug/dL
[2022-03-10 15:45] LABS: Ferritin 1165 ng/mL (10-250)
--- NOTE | 2022-03-10 15:45 | P.PNNP_ITS ---
Subjective Subjective Date of Service: 03/10/22 Interval history: Pt seen on HD Feels better Physical Exam Vital Signs: Vital Signs: Last Vital Signs Temp 97.7 F 03/10/22 08:14 Pulse 93 03/10/22 08:14 Resp 16 03/10/22 08:14 BP 167/75 H 03/10/22 08:14 Pulse Ox 98 03/10/22 08:14 O2 Del Method 03/10/22 08:14 O2 Flow Rate 4 03/10/22 06:07 Oxygen Flow Rate 4 03/09/22 16:32 BMI result Body Mass Index 22.3 Const: Other: General: AO X 3, no acute distress Resp: CTA bilateral CVS: S1,S2,RRR, no murmur and no edema GI: +BS, NT, no distention Skin: No rash Neuro: motor grossly intact Psych: appropriate affect Objective Data Labs CBC & Chem 7: 03/10/22 08:07 03/10/22 08:07 Labs: Laboratory Results - last 24 hr 03/09/22 03/09/22 03/09/22 18:23 18:23 19:59 WBC 6.9 RBC 2.83 L Hgb 8.2 L Hct 25.3 L MCV 89.4 MCH 29.0 MCHC 32.4 RDW 15.1 Plt Count 149 L MPV 10.2 Immature Gran % (Auto) 0.3 Neut % (Auto) 78.7 H Lymph % (Auto) 13.2 L [place] % (Auto) 6.5 Eos % (Auto) 1.2 Baso % (Auto) 0.1 Lymph # (Auto) 0.9 L [place] # (Auto) 0.5 Eos # (Auto) 0.1 Baso # (Auto) 0.0 Abs Immat Gran (auto) 0.02 Absolute Neuts (auto) 5.4 Absolute Nucleated RBC 0.000 Nucleated RBC % (auto) 0.0 Sodium 141 Potassium 3.1 L D Chloride 99 Carbon Dioxide 28 Anion Gap 17 BUN 9 D Creatinine 2.99 H Estim Creat Clear Calc 16.8 Estimated GFR 16 POC Glucose Random Glucose 183 H Calcium 8.9 D Iron TIBC % Saturation Unsat Iron Binding Total Bilirubin 0.6 Direct Bilirubin AST 24 D ALT 13 Alkaline Phosphatase 141 H D Troponin I High Sens B-Natriuretic Peptide 3377 H Total Protein 7.1 Albumin 4.3 COVID-19 ([facility]) COVID-19 [facility] Com 03/09/22 03/09/22 03/10/22 19:59 19:59 08:07 WBC 5.7 RBC 2.79 L Hgb 8.1 L Hct 25.2 L MCV 90.3 MCH 29.0 MCHC 32.1 RDW 15.3 Plt Count 146 L MPV 10.0 Immature Gran % (Auto) 0.4 Neut % (Auto) 89.9 H Lymph % (Auto) 6.0 L [place] % (Auto) 3.7 Eos % (Auto) 0.0 Baso % (Auto) 0.0 Lymph # (Auto) 0.3 L [place] # (Auto) 0.2 Eos # (Auto) 0.0 Baso # (Auto) 0.0 Abs Immat Gran (auto) 0.02 Absolute Neuts (auto) 5.1 Absolute Nucleated RBC 0.000 Nucleated RBC % (auto) 0.0 Sodium Potassium Chloride Carbon Dioxide Anion Gap BUN Creatinine Estim Creat Clear Calc Estimated GFR POC Glucose Random Glucose Calcium Iron TIBC % Saturation Unsat Iron Binding Total Bilirubin Direct Bilirubin AST ALT Alkaline Phosphatase Troponin I High Sens 96.5 H* B-Natriuretic Peptide Total Protein Albumin COVID-19 ([facility]INA) Negative COVID-19 Clin [facility] See Note 03/10/22 03/10/22 08:07 08:17 WBC RBC Hgb Hct MCV MCH MCHC RDW Plt Count MPV Immature Gran % (Auto) Neut % (Auto) Lymph % (Auto) [place] % (Auto) Eos % (Auto) Baso % (Auto) Lymph # (Auto) [place] # (Auto) Eos # (Auto) Baso # (Auto) Abs Immat Gran (auto) Absolute Neuts (auto) Absolute Nucleated RBC Nucleated RBC % (auto) Sodium 139 Potassium 4.7 D Chloride 97 Carbon Dioxide 28 Anion Gap 19 BUN 18 H D Creatinine 4.45 H* Estim Creat Clear Calc 11.3 Estimated GFR 10 POC Glucose 312 H Random Glucose 351 H* Calcium 9.2 Iron 47 TIBC 270 % Saturation 17 Unsat Iron Binding 223 Total Bilirubin 0.5 Direct Bilirubin 0.2 AST 26 ALT 15 Alkaline Phosphatase 144 H Troponin I High Sens B-Natriuretic Peptide Total Protein 7.2 Albumin 4.3 COVID-19 ([facility]) COVID-19 Clin Com Procedures Date of Service Date of Service: 03/10/22 Assessment & Plan Assessment and plan (1) End stage chronic kidney disease: Status: Acute (2) Congestive heart failure (CHF): Status: Acute (3) Nausea & vomiting: Status: Acute Plan ESRD on HD Vol Overload CHF Anemia Hypokalemia Continue HD today Vol removal as tolerated Low salt Diet Will give Epo 20 K x 1 dose today HD MWF Fluid restriction 1.2 L / day Time Spent With Patient Time: Total time spent is greater than 50% in coordination of care (as documented) at patient's floor/unit and/or counseling patient: Progress Note: Quality Stroke Does the patient have a stroke diagnosis?: No
[2022-03-10 16:00] LABS: Folate > 20.0 ng/mL (> or = 4.0); Vitamin B12 785 pg/mL (200-900)
[2022-03-10 16:05] LABS: Glucose, Whole Blood 76 mg/dL (60-115)
--- NOTE | 2022-03-10 16:44 | PC.NURSE ---
call placed to pharmacy to bring Epoetin Fabricio as med no in [facility]
[2022-03-10] MEDS: diphenhydrAMINE HCL 25 MG TABLET PO (17:11)
[2022-03-10 18:01] LABS: Glucose, Whole Blood 105 mg/dL (60-115)
--- NOTE | 2022-03-10 19:37 | PC.NURSE ---
assumed care of pt @1900. report from Michelle PICKENS. pt to be transported to med surg bed 360. report called to Esther PICKENS. Venus PCT bringing patient to floor @1940.
[2022-03-10 20:09] LABS: Glucose, Whole Blood 172 mg/dL (60-115)
[2022-03-10] MEDS: OLANZapine 5 MG TABLET PO (20:14)
[2022-03-11] VITALS (8 sets, daily range): BP systolic 130–172; BP diastolic 60–79; PULSE 61–75; RESP 16–18; TEMP 36.3–36.9; O2SAT 93–95
--- NOTE | 2022-03-11 03:00 | CONS_ITS ---
DATE OF SERVICE: REASON FOR CONSULTATION: Consult requested by the Medical Team to evaluate and help in management of patient with ESRD, on hemodialysis, presents with nausea, vomiting, and shortness of breath. HISTORY OF PRESENT ILLNESS: Patient has a longstanding history of CHF and some noncompliance. She usually gets dialyzed on Sunday, Sunday, Sunday and apparently was dialyzed on Sunday. She has had nausea for the last 3 to 4 days. She was not able to eat or drink well. She was hypoxemic with oxygen saturation of 89% on 4 L. She did not have any chest pain. In the ER, patient had a hemoglobin of 8.2 with hematocrit of 25.3. Creatinine was 2.99. Her BNP was 3377. A chest x-ray showed pulmonary vascular congestion. She was given IV Bumex in the ER, admitted for further evaluation and management. REVIEW OF SYSTEMS: As noted above. Other systems reviewed negative. PAST MEDICAL HISTORY: History of abdominal pain; history of COPD; anasarca; anemia of chronic disease; ascites, bilateral edema of lower extremity; constipation; diabetes type 2; ESRD, on hemodialysis; essential hypertension; history of hypertension and noncompliance. FAMILY HISTORY: Significant for hypertension. PAST SURGICAL HISTORY: As noted in the history of presenting illness. PERSONAL AND SOCIAL HISTORY: Patient continues to smoke. Uses heroin. Unclear if she drinks alcohol. MEDICATIONS: As an outpatient and inpatient reviewed. PHYSICAL EXAMINATION: GENERAL: Patient is resting in the bed. Awake, alert, in mild respiratory distress. VITAL SIGNS: Blood pressure is 195/88, pulse 90, temperature 98.4 degrees Fahrenheit. HEENT: Shows pupils equal bilaterally to light. NECK: Positive jugular venous distention is noted. Neck was supple. CARDIOVASCULAR SYSTEM: S1, S2 without rub. RESPIRATORY SYSTEM: Air entry decreased in the bases. Positive crepitation was noted. ABDOMEN: Soft, nontender. No guarding. No rigidity. Bowel sounds are normal. EXTREMITIES: Showed no significant edema. LABORATORY DATA: Labs done today; WBC 6.9, hemoglobin 8.2, hematocrit 25, and platelets 149. Sodium 141, potassium 3.1, chloride 99, CO2 of 28, BUN 9, creatinine 2.99. IMPRESSION: 1. A 66-year-old female with end-stage renal disease, on hemodialysis, admitted with nausea and vomiting. 2. Volume overload/congestive heart failure with acute hypoxemic respiratory failure. 3. Hypertension, uncontrolled in the setting of volume overload. 4. Chronic obstructive pulmonary disease exacerbation. 5. Type 2 diabetes mellitus. RECOMMENDATIONS: I have arranged the hemodialysis for the patient in the inpatient dialysis unit. We will try to remove fluid as tolerated. We will give albumin as needed. We used a high potassium bath. She needs to be on a strict 2 g sodium diet and a fluid restriction. Because of anemia, I recommend adding iron stores to her a.m. labs. I have ordered erythropoietin 20,000 units subcutaneously. With volume removal, a blood pressure should improve. We will continue with the present antihypertensive regimen. I recommend dietary evaluation for compliance with diet and fluid. Thank you for allowing me to participate in medical management of the patient. MD ANABELLE Henderson/GRACIE / [id number]
[2022-03-11 06:01] LABS: Hematocrit 28.1 % (37.0-47.0); Hemoglobin 8.9 g/dl (12.0-16.0); Mean Corpuscular HGB Conc 31.7 g/dl (31.0-35.0); Mean Corpuscular Hemoglobin 28.9 pg (27.0-33.0); Mean Corpuscular Volume 91.2 fL (80.0-98.0); Mean Platelet Volume 10.2 fL (9.4-12.3); NRBC Pct Auto 0.5 /100WBC (0.0-0.2); Platelet Count 196 X10*3/uL (160-400); Red Blood Count 3.08 X10*6/uL (4.20-5.50); Red Cell Distribution Width 15.7 % (11.0-16.0); White Blood Count 11.3 X10*3/uL (4.8-10.8)
[2022-03-11 06:35] LABS: Anion Gap 18 (12-20); Blood Urea Nitrogen 14 mg/dL (9-16); Carbon Dioxide 22 mmol/L (22-29); Chloride 100 mmol/L (96-108); Creatinine Clr Calc Pharmacy 14.7; Estimated Glomerular Filt Rate 13; Glucose Random 221 mg/dL (60-115); Potassium 4.5 mmol/L (3.3-5.1); Sodium 135 mmol/L (135-145)
[2022-03-11 07:31] LABS: Glucose, Whole Blood 176 mg/dL (60-115)
[2022-03-11] MEDS: hydrALAZINE HCl 50 MG TABLET PO ×3 (08:01→20:46)
[2022-03-11] MEDS: Buprenorphine/Naloxone 8/2 mg FILM 1 FILM SUBLINGUAL ×2 (08:01→20:47)
[2022-03-11] MEDS: dilTIAZem HCL CD 180 MG CAP.ER.24H 360 MG PO (08:01)
[2022-03-11] MEDS: cloNIDine HCL 0.2 MG TABLET PO ×2 (08:01→20:46)
[2022-03-11] MEDS: Isosorbide Mononitrate 30 MG TAB.ER.24H PO (08:01)
[2022-03-11] MEDS: Aspirin Enteric Coated 81 MG TABLET.DR PO (08:01)
[2022-03-11] MEDS: Omeprazole 20 MG CAPSULE.DR PO (08:01)
[2022-03-11] MEDS: 0.9 % Sodium Chloride Flush 3 ML SYRINGE IVFLUSH ×3 (08:02→20:47)
[2022-03-11] MEDS: Docusate Sodium 100 MG CAPSULE PO ×2 (08:02→20:46)
[2022-03-11] MEDS: Insulin Glargine,Hum.rec.anlog 100 UNIT/ML 10 ML VIAL 7 UNIT SUBCUT (08:02)
[2022-03-11] MEDS: Insulin Lispro 100 UNIT/ML 3 ML VIAL SUBCUT (08:02)
[2022-03-11] MEDS: polyethylene glycoL 3350 17 GM POWD.PACK PO ×2 (08:02→16:45)
[2022-03-11] MEDS: Multivitamin TABLET 1 TAB PO (08:02)
[2022-03-11] MEDS: Fluticasone Propionate 100 MCG BLST.W.DEV 1 PUFF INHALE ×2 (08:06→20:12)
[2022-03-11 11:34] LABS: Glucose, Whole Blood 143 mg/dL (60-115)
[2022-03-11] MEDS: Heparin Sodium,Porcine 5,000 UNIT/ML VIAL 5000 UNIT SUBCUT ×2 (12:51→23:44)
[2022-03-11] MEDS: diphenhydrAMINE HCL 25 MG CAPSULE PO (12:51)
--- NOTE | 2022-03-11 13:49 | P.PNIM_ITS ---
Subjective Subjective Date of Service: 03/11/22 Interval History: ESRD, abdominal pain Review of Systems Shortness of breath seems to be improving, denies any chest pain or fever or chills Still has some abdominal discomfort. Physical Exam Vital Signs: Vital Signs: Last Vital Signs Temp 98.4 F 03/11/22 11:17 Pulse 62 03/11/22 11:17 Resp 18 03/11/22 11:17 BP 143/63 H 03/11/22 11:17 Pulse Ox 95 03/11/22 11:17 O2 Del Method 03/11/22 11:17 O2 Flow Rate 1 03/11/22 11:17 Oxygen Flow Rate 4 03/09/22 16:32 BMI result Body Mass Index 22.3 Appearance: Alert.? Oriented X3.? not in distress.? cvs: [id number], [id number] . res: clear to auscultation ,no rhonchii or wheezing abd: no rebound or guarding ,nt, bs present. ext pulses present , no cyanosis . neuro: axo3 , nonfocal. Objective Data Active Medications Acetaminophen (Acetaminophen 325 Mg Tablet) 650 mg PO Q6H PRN PRN Reason: Pain, Mild (Pain Scale 1-3) Albuterol Sulfate (Albuterol Sulfate 90 Mcg 8 Gm Inhaler) 2 puff INHALE Q4H PRN PRN Reason: wheezing Albuterol/Ipratropium (Albuterol/Iprat 2.5/0.5mg 3 Ml Ampul.Neb) 3 ml INHALE RQ4H PRN PRN Reason: Shortness of Breath/Wheezing Last Admin: 03/10/22 06:12 Dose: 3 ml Documented By: UMANG Amlodipine Besylate (Amlodipine Besylate 10 Mg Tablet) 10 mg PO BEDTIME [facility]; Protocol Last Admin: 03/10/22 20:14 Dose: 10 mg Documented By: BECKY Aspirin (Aspirin Enteric Coated 81 Mg Tablet.) 81 mg PO DAILY [facility] Last Admin: 03/11/22 08:01 Dose: 81 mg Documented By: OTONIEL Bisacodyl (Bisacodyl 10 Mg Supp.Rect) 10 mg MO BEDTIME [facility] Last Admin: 03/10/22 20:27 Dose: Not Given Documented By: BECKY Non-Admin Reason: Patient Refused Buprenorphine/Naloxone (Buprenorphine/Naloxone 8/2 Mg Film) 1 film SUBLINGUAL BID [facility] Last Admin: 03/11/22 08:01 Dose: 1 film Documented By: OTONIEL Clonidine HCl (Clonidine Hcl 0.2 Mg Tablet) 0.2 mg PO BID [facility]; Protocol Last Admin: 03/11/22 08:01 Dose: 0.2 mg Documented By: OTONIEL Dextrose (Dextrose 50 % 25 Gm/50 Ml Syringe) 25 gm IVPUSH Q15M PRN; Protocol PRN Reason: per Hypoglycemia Standing Ord. Diltiazem HCl (Diltiazem Hcl Cd 180 Mg Cap.Er.24h) 360 mg PO DAILY [facility]; Protocol Last Admin: 03/11/22 08:01 Dose: 360 mg Documented By: OTONIEL Docusate Sodium (Docusate Sodium 100 Mg Capsule) 100 mg PO BID [facility] Last Admin: 03/11/22 08:02 Dose: 100 mg Documented By: OTONIEL Fluticasone Propionate (Fluticasone Propionate 100 Mcg Blst.W.Dev) 1 puff INHALE RBID [facility] Last Admin: 03/11/22 08:06 Dose: 1 puff Documented By: JEANETTE Glucose (Glucose Gel 15 Gm Gel..Gram.) 15 gm PO Q15M PRN; Protocol PRN Reason: per Hypoglycemia Standing Ord. Heparin Sodium (Porcine) (Heparin Sodium,Porcine 5,000 Unit/Ml Vial) 5,000 unit SUBCUT Q12H [facility] Last Admin: 03/11/22 12:51 Dose: 5,000 unit Documented By: OTONIEL Hydralazine HCl (Hydralazine Hcl 50 Mg Tablet) 50 mg PO TID [facility]; Protocol Last Admin: 03/11/22 08:01 Dose: 50 mg Documented By: OTONIEL Insulin Glargine (Insulin Glargine,Hum.Rec.Anlog 100 Unit/Ml 10 Ml Vial) 7 unit SUBCUT DAILY [facility] Last Admin: 03/11/22 08:02 Dose: 7 unit Documented By: OTONIEL Insulin Human Lispro (Insulin Lispro 100 Unit/Ml 3 Ml Vial) 0 unit SUBCUT QIDACHS [facility]; Protocol Last Admin: 03/11/22 11:39 Dose: Not Given Documented By: OTONIEL Non-Admin Reason: No Insulin Coverage Isosorbide Mononitrate (Isosorbide Mononitrate 30 Mg Tab.Er.24h) 30 mg PO DAILY [facility]; Protocol Last Admin: 03/11/22 08:01 Dose: 30 mg Documented By: OTONIEL Melatonin (Melatonin 3 Mg Tablet) 6 mg PO BEDTIME PRN PRN Reason: Sleep Multivitamins/Vitamin C (Multivitamin Tablet) 1 tab PO DAILY [facility] Last Admin: 03/11/22 08:02 Dose: 1 tab Documented By: OTONIEL Nicotine (Nicotine 7 Mg Patch.Td24) 7 mg TRANSDERMA Q24H [facility] Last Admin: 03/10/22 23:48 Dose: 7 mg Documented By: BECKY Olanzapine (Olanzapine 5 Mg Tablet) 5 mg PO BEDTIME [facility] Last Admin: 03/10/22 20:14 Dose: 5 mg Documented By: BECKY Omeprazole (Omeprazole 20 Mg Capsule.) 20 mg PO DAILY [facility] Last Admin: 03/11/22 08:01 Dose: 20 mg Documented By: OTONIEL Ondansetron HCl (Ondansetron Hcl 4 Mg/2 Ml Vial) 4 mg IVPUSH Q8H PRN PRN Reason: Nausea and Vomiting Polyethylene Glycol (Polyethylene Glycol 3350 17 Gm Powd.Pack) 17 gm PO BIDWM [facility] Last Admin: 03/11/22 08:02 Dose: 17 gm Documented By: OTNOIEL Sevelamer Carbonate (Sevelamer Carbonate Tablet 800 Mg Tablet) 800 mg PO BIDWM [facility] Last Admin: 03/11/22 12:09 Dose: Not Given Documented By: OTONIEL Non-Admin Reason: Patient Refused Sodium Chloride (0.9 % Sodium Chloride Flush 3 Ml Syringe) 3 ml IVFLUSH QSHIFT [facility] Last Admin: 03/11/22 08:02 Dose: 3 ml Documented By: OTONIEL Labs CBC & Chem 7: 03/11/22 05:42 03/11/22 05:42 Labs: Laboratory Results - last 24 hr 03/10/22 03/10/22 03/10/22 08:07 08:07 16:01 MCV MCH MCHC RDW Plt Count MPV Absolute Nucleated RBC Nucleated RBC % (auto) Anion Gap Estim Creat Clear Calc Estimated GFR POC Glucose 76 Random Glucose Calcium Iron 47 TIBC 270 % Saturation 17 Unsat Iron Binding 223 Ferritin 1165 H Total Bilirubin 0.5 Direct Bilirubin 0.2 AST 26 ALT 15 Alkaline Phosphatase 144 H Total Protein 7.2 Albumin 4.3 Vitamin B12 785 Folate > 20.0 03/10/22 03/10/22 03/11/22 17:55 20:02 05:42 MCV 91.2 MCH 28.9 MCHC 31.7 RDW 15.7 Plt Count 196 D MPV 10.2 Absolute Nucleated RBC 0.060 H Nucleated RBC % (auto) 0.5 H Anion Gap Estim Creat Clear Calc Estimated GFR POC Glucose 105 172 H Random Glucose Calcium Iron TIBC % Saturation Unsat Iron Binding Ferritin Total Bilirubin Direct Bilirubin AST ALT Alkaline Phosphatase Total Protein Albumin Vitamin B12 Folate 03/11/22 03/11/22 03/11/22 05:42 07:25 11:20 MCV MCH MCHC RDW Plt Count MPV Absolute Nucleated RBC Nucleated RBC % (auto) Anion Gap 18 Estim Creat Clear Calc 14.7 Estimated GFR 13 POC Glucose 176 H 143 H Random Glucose 221 H Calcium 9.0 Iron TIBC % Saturation Unsat Iron Binding Ferritin Total Bilirubin Direct Bilirubin AST ALT Alkaline Phosphatase Total Protein Albumin Vitamin B12 Folate Assessment and Plan (1) Abdominal pain: Status: Acute (2) End stage renal disease on dialysis: Status: Acute (3) Acute respiratory failure with hypoxia: Status: Acute Plan 66-year-old female with past medical history of CHF, ESRD on dialysis presents the hospital with nausea vomiting as well as dyspnea found to have CHF exacer bation # acute hypoxic respiratory failure-possible sec to fluid overload/esrd. still sob - has no cough, no sputum production, there for COPD exacerbation less likely - has elevated BNP - according to record patient did complete dialysis on day of presentation - received IV Bumex in the ED with minimal urine output - at this time will place her on low-sodium diet, strict I&O, daily weight nephrology followin added bendryl for # abdominal pain nausea vomiting - acute - has significant constipation - replace on bowel regimen - monitor bowel movement as this may develop into small bowel obstruction # hypertensive - elevated BP - resume home antihypertensives # COPD - acute exacerbation - continue home inhalers # diabetes - low-dose sliding scale insulin - continue home insulin DVT prophylaxis:? Heparin subQ inpatient need:acute hypoxic respiratory failure sec to fluid overload/esrd - need Hd and moniter respirtory status Quality Stroke Does the patient have a stroke diagnosis?: No VTE Prior VTE?: No VTE Risk Level:: Medical - moderate - high VTE Device Contraindication: Treatment Not Indicated VTE Drug Contraindication: N/A - Med Ordered
--- NOTE | 2022-03-11 15:41 | PM.PNNEP ---
Subjective Subjective Date of Service: 03/11/22 Interval history: ESRD, abdominal pain Physical Exam Vital Signs: Vital Signs: Last Vital Signs Temp 98.4 F 03/11/22 11:17 Pulse 62 03/11/22 11:17 Resp 18 03/11/22 11:17 BP 143/63 H 03/11/22 11:17 Pulse Ox 95 03/11/22 11:17 O2 Del Method 03/11/22 11:17 O2 Flow Rate 1 03/11/22 11:17 Oxygen Flow Rate 4 03/09/22 16:32 BMI result Body Mass Index 22.3 Appearance: Alert.? Oriented X3.? not in distress.? cvs: [id number], [id number] . res: clear to auscultation ,no rhonchii or wheezing abd: no rebound or guarding ,nt, bs present. ext pulses present , no cyanosis . neuro: axo3 , nonfocal. Objective Data Labs CBC & Chem 7: 03/11/22 05:42 03/11/22 05:42 Labs: Laboratory Results - last 24 hr 03/10/22 03/10/22 03/10/22 08:07 08:07 16:01 WBC RBC Hgb Hct MCV MCH MCHC RDW Plt Count MPV Absolute Nucleated RBC Nucleated RBC % (auto) Sodium Potassium Chloride Carbon Dioxide Anion Gap BUN Creatinine Estim Creat Clear Calc Estimated GFR POC Glucose 76 Random Glucose Calcium Ferritin 1165 H Vitamin B12 785 Folate > 20.0 03/10/22 03/10/22 03/11/22 17:55 20:02 05:42 WBC 11.3 H RBC 3.08 L Hgb 8.9 L Hct 28.1 L MCV 91.2 MCH 28.9 MCHC 31.7 RDW 15.7 Plt Count 196 D MPV 10.2 Absolute Nucleated RBC 0.060 H Nucleated RBC % (auto) 0.5 H Sodium Potassium Chloride Carbon Dioxide Anion Gap BUN Creatinine Estim Creat Clear Calc Estimated GFR POC Glucose 105 172 H Random Glucose Calcium Ferritin Vitamin B12 Folate 03/11/22 03/11/22 03/11/22 05:42 07:25 11:20 WBC RBC Hgb Hct MCV MCH MCHC RDW Plt Count MPV Absolute Nucleated RBC Nucleated RBC % (auto) Sodium 135 Potassium 4.5 Chloride 100 Carbon Dioxide 22 Anion Gap 18 BUN 14 Creatinine 3.42 H Estim Creat Clear Calc 14.7 Estimated GFR 13 POC Glucose 176 H 143 H Random Glucose 221 H Calcium 9.0 Ferritin Vitamin B12 Folate Procedures Date of Service Date of Service: 03/11/22 Assessment & Plan Assessment and plan (1) End stage renal disease on dialysis: Status: Acute Assessment and Plan: 1. A 66-year-old female with end-stage renal disease, on hemodialysis, admitted with nausea and vomiting. 2. Volume overload/congestive heart failure with acute hypoxemic respiratory failure. 3. Hypertension, uncontrolled in the setting of volume overload. 4. Chronic obstructive pulmonary disease exacerbation. 5. Type 2 diabetes mellitus. ? RECOMMENDATIONS:? Had inpatient dialysis Yesterday Usually MWF Next HDMonday She needs to be on a strict 2 g sodium diet and a fluid restriction. ?Had a dose of erythropoietin 20,000 units subcutaneously.? ? Abs pain w/u as per medical team ? Thank you for allowing me to participate in medical management of the patient. (2) Diabetes mellitus: Status: Acute (3) Congestive heart failure (CHF): Status: Acute Time Spent With Patient Time: Total time spent is greater than 50% in coordination of care (as documented) at patient's floor/unit and/or counseling patient: Progress Note: Quality Stroke Does the patient have a stroke diagnosis?: No
[2022-03-11 15:47] LABS: Glucose, Whole Blood 121 mg/dL (60-115)
[2022-03-11] MEDS: ondansetron HCL 4 MG/2 ML VIAL IVPUSH (17:57)
--- NOTE | 2022-03-11 18:02 | PC.NURSE ---
Patient has not had BM yet, abd distended, c/o nausea given zofran with some relief.
[2022-03-11 20:28] LABS: Glucose, Whole Blood 111 mg/dL (60-115)
[2022-03-11] MEDS: amLODIPine Besylate 10 MG TABLET PO (20:46)
[2022-03-11] MEDS: OLANZapine 5 MG TABLET PO (20:46)
[2022-03-11] MEDS: Nicotine 7 MG PATCH.TD24 TRANSDERMA (23:44)
[2022-03-12 03:25] VITALS: BP 161/70; PULSE 65; RESP 18; TEMP 36.6; O2SAT 95
[2022-03-12 07:24] VITALS: BP 181/85; PULSE 80; RESP 16; TEMP 37.4; O2SAT 93
[2022-03-12] MEDS: Fluticasone Propionate 100 MCG BLST.W.DEV 1 PUFF INHALE ×2 (07:38→19:26)
[2022-03-12 07:39] VITALS: PULSE 75; O2SAT 92
[2022-03-12 07:46] LABS: Glucose, Whole Blood 115 mg/dL (60-115)
[2022-03-12] MEDS: cloNIDine HCL 0.2 MG TABLET PO ×2 (08:27→21:13)
[2022-03-12] MEDS: Omeprazole 20 MG CAPSULE.DR PO (08:27)
[2022-03-12] MEDS: Buprenorphine/Naloxone 8/2 mg FILM 1 FILM SUBLINGUAL ×2 (08:27→21:18)
[2022-03-12] MEDS: polyethylene glycoL 3350 17 GM POWD.PACK PO ×2 (08:27→16:36)
[2022-03-12] MEDS: Lactulose 20 GM/30 ML SOLUTION PO (08:27)
[2022-03-12] MEDS: Aspirin Enteric Coated 81 MG TABLET.DR PO (08:28)
[2022-03-12] MEDS: dilTIAZem HCL CD 180 MG CAP.ER.24H 360 MG PO (08:28)
[2022-03-12] MEDS: hydrALAZINE HCl 50 MG TABLET PO ×3 (08:28→21:12)
[2022-03-12] MEDS: Docusate Sodium 100 MG CAPSULE PO ×2 (08:28→21:13)
[2022-03-12] MEDS: 0.9 % Sodium Chloride Flush 3 ML SYRINGE IVFLUSH ×3 (08:28→23:50)
[2022-03-12] MEDS: Multivitamin TABLET 1 TAB PO (08:28)
[2022-03-12] MEDS: Isosorbide Mononitrate 30 MG TAB.ER.24H PO (08:28)
[2022-03-12] MEDS: ondansetron HCL 4 MG/2 ML VIAL IVPUSH (08:36)
[2022-03-12] MEDS: Metoclopramide HCl 10 MG/2 ML VIAL 5 MG IVPUSH (10:27)
--- NOTE | 2022-03-12 11:32 | HO.PM.IMPN ---
Subjective Subjective Date of Service: 03/12/22 Interval History: constipation, nausea vomiting Review of Systems Patient unable to tolerate food yet still feel very nauseated and vomited x1 this morning. no abd pain See is passing gas gases but did not pass any bowel movement yet. Today no shortness of breath or chest pain. No fever or chills Physical Exam Vital Signs: Vital Signs: Last Vital Signs Temp 99.3 F 03/12/22 07:24 Pulse 75 03/12/22 07:39 Resp 16 03/12/22 07:24 BP 181/85 H 03/12/22 07:24 Pulse Ox 93 03/12/22 07:24 O2 Del Method 03/12/22 07:24 O2 Flow Rate 1 03/11/22 11:17 Oxygen Flow Rate 4 03/09/22 16:32 BMI result Body Mass Index 22.3 Appearance: Alert.? Oriented X3.? nauseated.? cvs: [id number], [id number] . res: clear to auscultation ,no rhonchii or wheezing abd: no rebound or guarding ,nt, bs present. ext pulses present , no cyanosis . neuro: axo3 , nonfocal. Objective Data Active Medications Acetaminophen (Acetaminophen 325 Mg Tablet) 650 mg PO Q6H PRN PRN Reason: Pain, Mild (Pain Scale 1-3) Albuterol Sulfate (Albuterol Sulfate 90 Mcg 8 Gm Inhaler) 2 puff INHALE Q4H PRN PRN Reason: wheezing Albuterol/Ipratropium (Albuterol/Iprat 2.5/0.5mg 3 Ml Ampul.Neb) 3 ml INHALE RQ4H PRN PRN Reason: Shortness of Breath/Wheezing Last Admin: 03/10/22 06:12 Dose: 3 ml Documented By: UMANG Amlodipine Besylate (Amlodipine Besylate 10 Mg Tablet) 10 mg PO BEDTIME [facility]; Protocol Last Admin: 03/11/22 20:46 Dose: 10 mg Documented By: TYRA Aspirin (Aspirin Enteric Coated 81 Mg Tablet.Dr) 81 mg PO DAILY [facility] Last Admin: 03/12/22 08:28 Dose: 81 mg Documented By: OTONIEL Bisacodyl (Bisacodyl 10 Mg Supp.Rect) 10 mg GA BEDTIME [facility] Last Admin: 03/11/22 20:43 Dose: Not Given Documented By: TYRA Non-Admin Reason: Patient Refused Buprenorphine/Naloxone (Buprenorphine/Naloxone 8/2 Mg Film) 1 film SUBLINGUAL BID [facility] Last Admin: 03/12/22 08:27 Dose: 1 film Documented By: OTONIEL Clonidine HCl (Clonidine Hcl 0.2 Mg Tablet) 0.2 mg PO BID [facility]; Protocol Last Admin: 03/12/22 08:27 Dose: 0.2 mg Documented By: OTONIEL Dextrose (Dextrose 50 % 25 Gm/50 Ml Syringe) 25 gm IVPUSH Q15M PRN; Protocol PRN Reason: per Hypoglycemia Standing Ord. Diltiazem HCl (Diltiazem Hcl Cd 180 Mg Cap.Er.24h) 360 mg PO DAILY [facility]; Protocol Last Admin: 03/12/22 08:28 Dose: 360 mg Documented By: OTONIEL Docusate Sodium (Docusate Sodium 100 Mg Capsule) 100 mg PO BID [facility] Last Admin: 03/12/22 08:28 Dose: 100 mg Documented By: OTONIEL Fluticasone Propionate (Fluticasone Propionate 100 Mcg Blst.W.Dev) 1 puff INHALE RBID [facility] Last Admin: 03/12/22 07:38 Dose: 1 puff Documented By: DOLORES Glucose (Glucose Gel 15 Gm Gel..Gram.) 15 gm PO Q15M PRN; Protocol PRN Reason: per Hypoglycemia Standing Ord. Heparin Sodium (Porcine) (Heparin Sodium,Porcine 5,000 Unit/Ml Vial) 5,000 unit SUBCUT Q12H [facility] Last Admin: 03/11/22 23:44 Dose: 5,000 unit Documented By: TYRA Hydralazine HCl (Hydralazine Hcl 50 Mg Tablet) 50 mg PO TID [facility]; Protocol Last Admin: 03/12/22 08:28 Dose: 50 mg Documented By: OTONIEL Insulin Glargine (Insulin Glargine,Hum.Rec.Anlog 100 Unit/Ml 10 Ml Vial) 7 unit SUBCUT DAILY [facility] Last Admin: 03/12/22 08:41 Dose: Not Given Documented By: OTONIEL Non-Admin Reason: Nausea Insulin Human Lispro (Insulin Lispro 100 Unit/Ml 3 Ml Vial) 0 unit SUBCUT QIDACHS [facility]; Protocol Last Admin: 03/12/22 08:41 Dose: Not Given Documented By: OTONIEL Non-Admin Reason: No Insulin Coverage Isosorbide Mononitrate (Isosorbide Mononitrate 30 Mg Tab.Er.24h) 30 mg PO DAILY [facility]; Protocol Last Admin: 03/12/22 08:28 Dose: 30 mg Documented By: OTONIEL Melatonin (Melatonin 3 Mg Tablet) 6 mg PO BEDTIME PRN PRN Reason: Sleep Multivitamins/Vitamin C (Multivitamin Tablet) 1 tab PO DAILY [facility] Last Admin: 03/12/22 08:28 Dose: 1 tab Documented By: OTONIEL Nicotine (Nicotine 7 Mg Patch.Td24) 7 mg TRANSDERMA Q24H [facility] Last Admin: 03/11/22 23:44 Dose: 7 mg Documented By: TYRA Olanzapine (Olanzapine 5 Mg Tablet) 5 mg PO BEDTIME [facility] Last Admin: 03/11/22 20:46 Dose: 5 mg Documented By: TYRA Omeprazole (Omeprazole 20 Mg Capsule.) 20 mg PO DAILY [facility] Last Admin: 03/12/22 08:27 Dose: 20 mg Documented By: OTONIEL Ondansetron HCl (Ondansetron Hcl 4 Mg/2 Ml Vial) 4 mg IVPUSH Q4H PRN PRN Reason: Nausea and Vomiting Last Admin: 03/12/22 08:36 Dose: 4 mg Documented By: OTONIEL Polyethylene Glycol (Polyethylene Glycol 3350 17 Gm Powd.Pack) 17 gm PO BIDWM [facility] Last Admin: 03/12/22 08:27 Dose: 17 gm Documented By: OTONIEL Sevelamer Carbonate (Sevelamer Carbonate Tablet 800 Mg Tablet) 800 mg PO BIDWM [facility] Last Admin: 03/12/22 08:20 Dose: Not Given Documented By: OTONIEL Non-Admin Reason: Patient Refused Sodium Biphosphate/Sodium Phosphate (Sodium Phosphate,[place]-Dibasic 133 Ml Enema) 133 ml GA ONCE PRN PRN Reason: Constipation Sodium Chloride (0.9 % Sodium Chloride Flush 3 Ml Syringe) 3 ml IVFLUSH QSHIFT [facility] Last Admin: 03/12/22 08:28 Dose: 3 ml Documented By: OTONIEL Labs CBC & Chem 7: 03/11/22 05:42 03/11/22 05:42 Labs: Laboratory Results - last 24 hr 03/11/22 03/11/22 03/11/22 11:20 15:33 19:26 POC Glucose 143 H 121 H 111 03/12/22 07:27 POC Glucose 115 Assessment and Plan (1) Nausea & vomiting: Status: Acute (2) Constipation: Status: Acute Plan 66-year-old female with past medical history of CHF, ESRD on dialysis presents the hospital with nausea vomiting as well as dyspnea found to have CHF exacerbation # acute hypoxic respiratory failure-possible sec to fluid overload/esrd. still sob - has no cough, no sputum production, there for COPD exacerbation less likely - has elevated BNP - according to record patient did complete dialysis on day of presentation - received IV Bumex in the ED with minimal urine output - at this time will place her on low-sodium diet, strict I&O, daily weight nephrology followin # abdominal pain nausea vomiting unable to tolerate po yet-added reglan in addition to zofran, ppi - has significant constipation on bowel regimen/added emema - monitor bowel movement as this may develop into small bowel obstruction added kub # hypertensive - elevated BP - resume home antihypertensives # COPD - acute exacerbation - continue home inhalers # diabetes - low-dose sliding scale insulin - continue home insulin DVT prophylaxis:? Heparin subQ inpatient need: Persistent nausea vomiting unable to take p.o., severe constipation. Quality Stroke Does the patient have a stroke diagnosis?: No VTE Prior VTE?: No VTE Risk Level:: Medical - moderate - high VTE Device Contraindication: Treatment Not Indicated VTE Drug Contraindication: N/A - Med Ordered
[2022-03-12 11:35] VITALS: BP 164/74; PULSE 72; RESP 18; TEMP 37.4; O2SAT 95
[2022-03-12 11:50] LABS: Glucose, Whole Blood 143 mg/dL (60-115)
[2022-03-12] MEDS: Heparin Sodium,Porcine 5,000 UNIT/ML VIAL 5000 UNIT SUBCUT ×2 (12:47→23:47)
--- NOTE | 2022-03-12 13:05 | PC.NURSE ---
Addendum entered by Jessika Guan RN 03/12/22 17:50: Patient had large soft bowel movement. Denies nausea, tolerating PO. Feels better Original Note: Patient encouraged to get out of bed into chair, patient declined at this time. Nausea vomiting this AM, given antimetics with good response. Patient given tap water enema. No BM yet, will monitor. Patient reports last BM was 21st a small amount. Patient has good PO intake breathing unlabored, soft distended, +BS.
--- NOTE | 2022-03-12 13:27 | PM.PNNEP ---
Subjective Subjective Date of Service: 03/12/22 Interval history: constipation, nausea vomiting Physical Exam Vital Signs: Vital Signs: Last Vital Signs Temp 99.3 F 03/12/22 11:35 Pulse 72 03/12/22 11:35 Resp 18 03/12/22 11:35 BP 164/74 H 03/12/22 11:35 Pulse Ox 95 03/12/22 11:35 O2 Del Method 03/12/22 11:35 O2 Flow Rate 1 03/11/22 11:17 Oxygen Flow Rate 4 03/09/22 16:32 BMI result Body Mass Index 22.3 Appearance: Alert.? Oriented X3.? nauseated.? cvs: rrr, [id number] . res: clear to auscultation ,no rhonchii or wheezing abd: no rebound or guarding ,nt, bs present. ext pulses present , no cyanosis . neuro: axo3 , nonfocal. Objective Data Labs CBC & Chem 7: 03/11/22 05:42 03/11/22 05:42 Labs: Laboratory Results - last 24 hr 03/11/22 03/11/22 03/12/22 15:33 19:26 07:27 POC Glucose 121 H 111 115 03/12/22 11:24 POC Glucose 143 H Procedures Date of Service Date of Service: 03/12/22 Assessment & Plan Assessment and plan (1) End stage chronic kidney disease: Status: Acute (2) End stage renal disease on dialysis: Status: Acute Assessment and Plan: 1. A 66-year-old female with end-stage renal disease, on hemodialysis, admitted with nausea and vomiting. 2. Volume overload/congestive heart failure with acute hypoxemic respiratory failure. 3. Hypertension, uncontrolled in the setting of volume overload. 4. Chronic obstructive pulmonary disease exacerbation. 5. Type 2 diabetes mellitus. ? RECOMMENDATIONS:? Had inpatient dialysis sunday Usually MWF Next HDMonday She needs to be on a strict 2 g sodium diet and a fluid restriction. ?Had a dose of erythropoietin 20,000 units subcutaneously.? ? Abs pain w/u as per medical team ? Thank you for allowing me to participate in medical management of the patient. (3) Diabetes mellitus: Status: Acute (4) Congestive heart failure (CHF): Status: Acute Time Spent With Patient Time: Total time spent is greater than 50% in coordination of care (as documented) at patient's floor/unit and/or counseling patient: Progress Note: Quality Stroke Does the patient have a stroke diagnosis?: No
[2022-03-12 15:52] VITALS: BP 163/76; PULSE 69; RESP 18; TEMP 37; O2SAT 94
[2022-03-12 16:17] LABS: Glucose, Whole Blood 140 mg/dL (60-115)
[2022-03-12 20:00] VITALS: BP 149/61; PULSE 77; RESP 18; TEMP 36.9; O2SAT 99
[2022-03-12 20:27] LABS: Glucose, Whole Blood 127 mg/dL (60-115)
[2022-03-12] MEDS: amLODIPine Besylate 10 MG TABLET PO (21:12)
[2022-03-12] MEDS: OLANZapine 5 MG TABLET PO (21:12)
[2022-03-12] MEDS: Nicotine 7 MG PATCH.TD24 TRANSDERMA (23:48)
[2022-03-13] VITALS: BP 145/68; PULSE 72; RESP 17; TEMP 36.6; O2SAT 95
[2022-03-13 04:00] VITALS: BP 157/83; PULSE 72; RESP 17; TEMP 36.6; O2SAT 95
[2022-03-13 07:17] VITALS: BP 198/91; PULSE 82; RESP 18; TEMP 36.8; O2SAT 95
[2022-03-13 07:40] LABS: Glucose, Whole Blood 113 mg/dL (60-115)
[2022-03-13 08:12] VITALS: PULSE 76; O2SAT 93
[2022-03-13] MEDS: Fluticasone Propionate 100 MCG BLST.W.DEV 1 PUFF INHALE (08:12)
[2022-03-13] MEDS: ondansetron HCL 4 MG/2 ML VIAL IVPUSH (09:02)
[2022-03-13] MEDS: diphenhydrAMINE HCL 50 MG/ML VIAL 25 MG IVPUSH (10:17)
--- NOTE | 2022-03-13 11:20 | PM.PNNEP ---
Subjective Subjective Date of Service: 03/13/22 Interval history: Seen on HD this AM. D/W HD RN. All recent data reviewed Physical Exam Vital Signs: Vital Signs: Last Vital Signs Temp 98.3 F 03/13/22 07:17 Pulse 76 03/13/22 08:12 Resp 18 03/13/22 07:17 BP 198/91 H 03/13/22 07:17 Pulse Ox 95 03/13/22 07:17 O2 Del Method 03/13/22 07:17 O2 Flow Rate 1 03/11/22 11:17 Oxygen Flow Rate 4 03/09/22 16:32 BMI result Body Mass Index 22.3 Const: General: no acute distress Eyes: EOM: EOMs intact bilaterally Resp: Auscultation: diminished lung sounds Cardio: Rate: regular rate GI: Palpation (GI): Soft to palpation Neuro: General: moves all extremities Objective Data Labs CBC & Chem 7: 03/11/22 05:42 03/11/22 05:42 Labs: Laboratory Results - last 24 hr 03/12/22 03/12/22 03/12/22 11:24 15:51 20:03 POC Glucose 143 H 140 H 127 H 03/13/22 07:21 POC Glucose 113 Procedures Date of Service Date of Service: 03/13/22 Assessment & Plan Assessment and plan (1) End stage renal disease on dialysis: Status: Acute Assessment and Plan: End Stage Renal Disease Seen on HD this AM Usually gets HD on MWF Hemodynamically stable on HD Had received EPO Renal Diet; Phos binders with meals Concur with rest of current management Time Spent With Patient Time: Total time spent is greater than 50% in coordination of care (as documented) at patient's floor/unit and/or counseling patient: Progress Note: Quality Stroke Does the patient have a stroke diagnosis?: No
--- NOTE | 2022-03-13 11:29 | MHC.CLN ---
NUTRITION DIET ADVANCED 03/13 TO DIABETIC 1800 KCALS. PATIENT WITH ESRD AND RECEIVES HEMODIALYSIS. IN ADDITION TO DIABETIC 1800 KCALS, ADDING TO DIET ORDER PER DIALYSIS PARAMETERS: 2 G SODIUM, LOW POTASSIUM, LOW PHOSPHORUS.
--- NOTE | 2022-03-13 11:31 | HO.PM.IMPN ---
Subjective Subjective Date of Service: 03/13/22 Interval History: uncontrolled htn, persistent nausea/vomiting Review of Systems passed bm's still persistent nausea/vomiting Physical Exam Vital Signs: Vital Signs: Last Vital Signs Temp 98.3 F 03/13/22 07:17 Pulse 76 03/13/22 08:12 Resp 18 03/13/22 07:17 BP 198/91 H 03/13/22 07:17 Pulse Ox 95 03/13/22 07:17 O2 Del Method 03/13/22 07:17 O2 Flow Rate 1 03/11/22 11:17 Oxygen Flow Rate 4 03/09/22 16:32 BMI result Body Mass Index 22.3 ?Appearance: Alert.? Oriented X3.? nauseated.? cvs: rrr, [id number] . res: clear to auscultation ,no rhonchii or wheezing abd: no rebound or guarding ,nd,nt, bs present. ext pulses present , no cyanosis . neuro: axo3 , nonfocal. Objective Data Active Medications Acetaminophen (Acetaminophen 325 Mg Tablet) 650 mg PO Q6H PRN PRN Reason: Pain, Mild (Pain Scale 1-3) Albuterol Sulfate (Albuterol Sulfate 90 Mcg 8 Gm Inhaler) 2 puff INHALE Q4H PRN PRN Reason: wheezing Albuterol/Ipratropium (Albuterol/Iprat 2.5/0.5mg 3 Ml Ampul.Neb) 3 ml INHALE RQ4H PRN PRN Reason: Shortness of Breath/Wheezing Last Admin: 03/10/22 06:12 Dose: 3 ml Documented By: UMANG Amlodipine Besylate (Amlodipine Besylate 10 Mg Tablet) 10 mg PO BEDTIME [facility]; Protocol Last Admin: 03/12/22 21:12 Dose: 10 mg Documented By: KIMI Aspirin (Aspirin Enteric Coated 81 Mg Tablet.Dr) 81 mg PO DAILY [facility] Last Admin: 03/12/22 08:28 Dose: 81 mg Documented By: OTONIEL Bisacodyl (Bisacodyl 10 Mg Supp.Rect) 10 mg MN BEDTIME PHAN Last Admin: 03/12/22 21:21 Dose: Not Given Documented By: KIMI Non-Admin Reason: Patient Refused Buprenorphine/Naloxone (Buprenorphine/Naloxone 8/2 Mg Film) 1 film SUBLINGUAL BID [facility] Last Admin: 03/12/22 21:18 Dose: 1 film Documented By: KIMI Clonidine HCl (Clonidine Hcl 0.2 Mg Tablet) 0.2 mg PO BID [facility]; Protocol Last Admin: 03/12/22 21:13 Dose: 0.2 mg Documented By: KIMI Dextrose (Dextrose 50 % 25 Gm/50 Ml Syringe) 25 gm IVPUSH Q15M PRN; Protocol PRN Reason: per Hypoglycemia Standing Ord. Diltiazem HCl (Diltiazem Hcl Cd 180 Mg Cap.Er.24h) 360 mg PO DAILY [facility]; Protocol Last Admin: 03/12/22 08:28 Dose: 360 mg Documented By: OTONIEL Docusate Sodium (Docusate Sodium 100 Mg Capsule) 100 mg PO BID [facility] Last Admin: 03/12/22 21:13 Dose: 100 mg Documented By: KIMI Fluticasone Propionate (Fluticasone Propionate 100 Mcg Blst.W.Dev) 1 puff INHALE RBID [facility] Last Admin: 03/13/22 08:12 Dose: 1 puff Documented By: DOLORES Glucose (Glucose Gel 15 Gm Gel..Gram.) 15 gm PO Q15M PRN; Protocol PRN Reason: per Hypoglycemia Standing Ord. Heparin Sodium (Porcine) (Heparin Sodium,Porcine 5,000 Unit/Ml Vial) 5,000 unit SUBCUT Q12H [facility] Last Admin: 03/12/22 23:47 Dose: 5,000 unit Documented By: KIMI Hydralazine HCl (Hydralazine Hcl 50 Mg Tablet) 50 mg PO TID [facility]; Protocol Last Admin: 03/12/22 21:12 Dose: 50 mg Documented By: KIMI Insulin Glargine (Insulin Glargine,Hum.Rec.Anlog 100 Unit/Ml 10 Ml Vial) 7 unit SUBCUT DAILY [facility] Last Admin: 03/12/22 08:41 Dose: Not Given Documented By: OTONIEL Non-Admin Reason: Nausea Insulin Human Lispro (Insulin Lispro 100 Unit/Ml 3 Ml Vial) 0 unit SUBCUT QIDACHS [facility]; Protocol Last Admin: 03/13/22 08:05 Dose: Not Given Documented By: CONCEPCIÓN Non-Admin Reason: No Insulin Coverage Isosorbide Mononitrate (Isosorbide Mononitrate 30 Mg Tab.Er.24h) 30 mg PO DAILY [facility]; Protocol Last Admin: 03/12/22 08:28 Dose: 30 mg Documented By: OTONIEL Melatonin (Melatonin 3 Mg Tablet) 6 mg PO BEDTIME PRN PRN Reason: Sleep Multivitamins/Vitamin C (Multivitamin Tablet) 1 tab PO DAILY [facility] Last Admin: 03/12/22 08:28 Dose: 1 tab Documented By: OTONIEL Nicotine (Nicotine 7 Mg Patch.Td24) 7 mg TRANSDERMA Q24H [facility] Last Admin: 03/12/22 23:48 Dose: 7 mg Documented By: KIMI Olanzapine (Olanzapine 5 Mg Tablet) 5 mg PO BEDTIME [facility] Last Admin: 03/12/22 21:12 Dose: 5 mg Documented By: KIMI Omeprazole (Omeprazole 20 Mg Capsule.Dr) 20 mg PO DAILY [facility] Last Admin: 03/12/22 08:27 Dose: 20 mg Documented By: OTONIEL Ondansetron HCl (Ondansetron Hcl 4 Mg/2 Ml Vial) 4 mg IVPUSH Q4H PRN PRN Reason: Nausea and Vomiting Last Admin: 03/13/22 09:02 Dose: 4 mg Documented By: CONCEPCIÓN Polyethylene Glycol (Polyethylene Glycol 3350 17 Gm Powd.Pack) 17 gm PO BIDWM [facility] Last Admin: 03/12/22 16:36 Dose: 17 gm Documented By: OTONIEL Sevelamer Carbonate (Sevelamer Carbonate Tablet 800 Mg Tablet) 800 mg PO BIDWM [facility] Last Admin: 03/12/22 15:28 Dose: Not Given Documented By: OTONIEL Non-Admin Reason: Patient Refused Sodium Biphosphate/Sodium Phosphate (Sodium Phosphate,Pleasants-Dibasic 133 Ml Enema) 133 ml MN ONCE PRN PRN Reason: Constipation Sodium Chloride (0.9 % Sodium Chloride Flush 3 Ml Syringe) 3 ml IVFLUSH QSHIFT [facility] Last Admin: 03/12/22 23:50 Dose: 3 ml Documented By: KIMI Labs CBC & Chem 7: 03/11/22 05:42 03/11/22 05:42 Labs: Laboratory Results - last 24 hr 03/12/22 03/12/22 03/12/22 11:24 15:51 20:03 POC Glucose 143 H 140 H 127 H 03/13/22 07:21 POC Glucose 113 Assessment and Plan (1) Nausea & vomiting: Status: Acute (2) Abdominal pain: Status: Acute Plan 66-year-old female with past medical history of CHF, ESRD on dialysis presents the hospital with nausea vomiting as well as dyspnea found to have CHF exacerbation # acute hypoxic respiratory failure-possible sec to fluid overload/esrd. still sob - has no cough, no sputum production, there for COPD exacerbation less likely - has elevated BNP - according to record patient did complete dialysis on day of presentation - received IV Bumex in the ED with minimal urine output - at this time will place her on low-sodium diet, strict I&O, daily weight nephrology followin # abdominal pain nausea vomiting unable to tolerate po yet-added reglan in addition to zofran, ppi - has significant constipation ?on bowel regimen/added emema Please see discharge summary from today's date for more information patient is passing bowels less likely to have ileus Asymptomatic # hypertensive - elevated BP- continue home antihypertensives # COPD - acute exacerbation - continue home inhalers # diabetes - low-dose sliding scale insulin - continue home insulin DVT prophylaxis:? Heparin subQ inpatient need:? 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 Waiting for safe discharge Quality Stroke Does the patient have a stroke diagnosis?: No VTE Prior VTE?: No VTE Risk Level:: Medical - moderate - high VTE Device Contraindication: Treatment Not Indicated VTE Drug Contraindication: N/A - Med Ordered
--- NOTE | 2022-03-13 13:50 | MHC.CM.PN ---
Addendum entered by Aislinn Zaldivar 03/13/22 16:30: PT CLEARED TO DC HOME TODAY WITH RESUMPTION OF SERVICES REFERRAL MADE TO [facility] INFORMING THEM OF ADMISSION AND DC DC SUMMARY NOT YET AVAILABLE TO SEND FAMILY TO TRANSPORT Original Note: per rounds possible dc for pt today plan is for home with resumption of services
[2022-03-13 14:16] VITALS: BP 143/93; PULSE 94; RESP 18; TEMP 37.3; O2SAT 97
[2022-03-13] MEDS: Heparin Sodium,Porcine 5,000 UNIT/ML VIAL 5000 UNIT SUBCUT (14:25)
[2022-03-13] MEDS: Buprenorphine/Naloxone 8/2 mg FILM 1 FILM SUBLINGUAL (14:25)
[2022-03-13] MEDS: dilTIAZem HCL CD 180 MG CAP.ER.24H 360 MG PO (14:26)
[2022-03-13] MEDS: Multivitamin TABLET 1 TAB PO (14:26)
[2022-03-13] MEDS: Omeprazole 20 MG CAPSULE.DR PO (14:26)
[2022-03-13] MEDS: Isosorbide Mononitrate 30 MG TAB.ER.24H PO (14:26)
[2022-03-13] MEDS: Aspirin Enteric Coated 81 MG TABLET.DR PO (14:26)
[2022-03-13] MEDS: hydrALAZINE HCl 25 MG TABLET 75 MG PO (14:26)
[2022-03-13 14:27] LABS: Glucose, Whole Blood 118 mg/dL (60-115)
[2022-03-13 15:40] VITALS: BP 140/60; PULSE 90; RESP 18; TEMP 37.1; O2SAT 97
[2022-03-13 16:23] LABS: Glucose, Whole Blood 150 mg/dL (60-115)
--- NOTE | 2022-03-13 16:23 | PM.DS ---
DS: Providers Provider Date of Service: 03/13/22 Date of admission: 03/10/22 00:09 Primary care physician: Sammy Vicente MD Consults: 03/10/22 00:06 Consult to Nephrology Routine Consulting Provider: [facility] Reason for consultation: dialysis, volume overload Has provider been notified: No DS: Diagnosis Discharge Diagnosis (1) End stage renal disease on dialysis: Status: Acute DS: Summary Hospital Course Hospital Course: 66-year-old female with extensive past medical history that includes ESRD on dialysis, CHF, diabetes, history of CAD status post NSTEMI, asthma, hypertension, presents to the hospital from dialysis with reported shortness of breath.? Patient is Martiniquais-speaking, history is obtained with the help of an orthotic practitioner.? Patient reports that she has been having nausea and vomiting for the past 3-4 days, poor oral intake as a result, she has not been drinking or eating well due to that, she reports shortness of breath, no cough, no sputum production, reports decreased urine output.? Reports constipation for past 1 week with no bowel movement.? She is passing gas.? She denies any chest pain, no lower extremity edema.? Of note patient was found to be hypoxic satting 89% on 4 L of oxygen. On arrival to the ED patient hemodynamically stable with elevated blood pressure Labs are significant for the RBC count of 6.9, hemoglobin of 8.2, hematocrit of 25.3, creatinine of 2.99, troponin 96.5 which is chronically elevated, BNP of 3377 Abdominal x-ray shows moderate to large amount of formed stool in the colon, nonobstructive bowel gas pattern Chest x-ray shows pulmonary vascular congestion and small bilateral pleural effusions Apparently patient still produces urine, so she received Bumex IV in the ED and will be admitted for further management. Hospital course: Patient came to the hospital because of acute hypoxemic respiratory failure possibly due to fluid overload /esrd. Patient was given dialysis and seems to be feeling better. Her nausea probably related to uremia related to dialysis which also seems to be improved with symptomatic management. Tolerating diet. Severe constipation: Responded well to laxatives head 3- 4 BMs last night feeling better now. We will give p.o. bowel regimen before discharge. Abdominal x-ray showed possibility of ileus. The patient was given laxative and enema and patient is passing bowels at least 3-4 bowel movement overnight, currently asymptomatic -possible the symptoms initially was due to severe constipation rather than ileus. Tolerating diet well. Htn : seems improving after taking her home meds ,in addition her hydralazine adjusted to 75 mg t.i.d.. Monitor blood pressure outpatient and further management outpatient as per PCP Above management discussed with the patient in detail length she understand and in agreement with the above plan, time spent 50 minutes and 50% time spent on counseling. Significant findings: As above. Procedures performed: None. Treatment and response: As above. Complications: None. Time Spent with Patient Time attestation: Total time spent providing and/or coordinating discharge services: Discharge coordination time: Greater than 30 minutes Quality: Safe Use of Opioids Does Pt have an Active Cancer Diagnosis on the Problem List?: No Quality: Stroke Does the patient have a stroke diagnosis?: No Physical Exam Vital Signs: Vital Signs: Last Vital Signs Temp 98.8 F 03/13/22 15:40 Pulse 90 03/13/22 15:40 Resp 18 03/13/22 15:40 BP 180/81 H 03/13/22 15:40 Pulse Ox 97 03/13/22 15:40 O2 Del Method 03/13/22 15:40 O2 Flow Rate 1 03/11/22 11:17 Oxygen Flow Rate 4 03/09/22 16:32 BMI result Body Mass Index 22.3 Appearance: Alert.? Oriented X3.? nauseated.? cvs: rrr, [id number] . res: clear to auscultation ,no rhonchii or wheezing abd: no rebound or guarding ,nt, bs present. ext pulses present , no cyanosis . neuro: axo3 , nonfocal. DS: Data Data Completed and Pending Completed studies during hospitalization [Text1]: Procedures Assistance with Respiratory Ventilation, Less than 24 Consecutive Hours, Continuous Positive Airway Pressure (01/30/22) Excision of Left Kidney, Percutaneous Approach, Diagnostic (02/25/21) Excision of Right Kidney, Percutaneous Approach, Diagnostic (10/22/20) Insertion of Endotracheal Airway into Trachea, Via Natural or Artificial Opening (10/12/21) Insertion of Infusion Device into Right Atrium, Percutaneous Approach (01/30/22) Insertion of Infusion Device into Superior Vena Cava, Percutaneous Approach (02/25/21) Insertion of Tunneled Vascular Access Device into Chest Subcutaneous Tissue and Fascia, Percutaneous Approach (10/12/21) Performance of Urinary Filtration, Intermittent, Less than 6 Hours Per Day (01/30/22) Respiratory Ventilation, 24-96 Consecutive Hours (10/12/21) Transfusion of Nonautologous Red Blood Cells into Peripheral Vein, Percutaneous Approach (02/25/21) Ultrasonography of Superior Vena Cava, Guidance (01/30/22) Labs on day of discharge: Laboratory Results - last 24 hr 03/12/22 03/13/22 03/13/22 20:03 07:21 14:18 POC Glucose 127 H 113 118 H 03/13/22 15:47 POC Glucose 150 H 08:07 08:07 16:01 MCV ? ? ? MCH ? ? ? MCHC ? ? ? RDW ? ? ? Plt Count ? ? ? MPV ? ? ? Absolute Nucleated RBC ? ? ? Nucleated RBC % (auto) ? ? ? Anion Gap ? ? ? Estim Creat Clear Calc ? ? ? Estimated GFR ? ? ? POC Glucose ? ? ?76 Random Glucose ? ? ? Calcium ? ? ? Iron ?47 ? ? TIBC ?270 ? ? % Saturation ?17 ? ? Unsat Iron Binding ?223 ? ? Ferritin ?1165 H ? ? Total Bilirubin ?0.5 ? ? Direct Bilirubin ?0.2 ? ? AST ?26 ? ? ALT ?15 ? ? Alkaline Phosphatase ?144 H ? ? Total Protein ?7.2 ? ? Albumin ?4.3 ? ? Vitamin B12 ? ?785 ? Folate ? ?> 20.0 ? ? 03/10/22 03/10/22 03/11/22 ? 17:55 20:02 05:42 MCV ? ? ?91.2 MCH ? ? ?28.9 MCHC ? ? ?31.7 RDW ? ? ?15.7 Plt Count ? ? ?196? D MPV ? ? ?10.2 Absolute Nucleated RBC ? ? ?0.060 H Nucleated RBC % (auto) ? ? ?0.5? Additional Comments Additional comments: XR/XR KUB IMPRESSION: ? 1. Increased dilatation of small bowel loops. This could represent ileus however early or partial small bowel structure cannot be excluded. 2. Moderate colonic stool burden appears similar if not mildly increased. Discharge Plan Discharge Anticipated Discharge Date/Time: 03/13/22 14:48 Patient Disposition: Home Health Service Discharge Diagnosis: Acute hypoxemic respiratory failure secondary to fluid overload due to ESRD, severe constipation. Referrals: [facility] [Outside] - 1 Week Sammy Vicente MD [Primary Care Provider] - 1 Week Discharge Medications: New docusate sodium 100 mg Capsule 100 mg PO BID PRN (Reason: constipation) Qty: 30 0RF polyethylene glycol 3350 17 gram Powder In Packet 17 g PO BIDWM PRN (Reason: constipation) Qty: 30 0RF Continued buprenorphine-naloxone [Suboxone] 8-2 mg film 1 strip sublingual BID diltiazem HCl 180 mg capsule,extended release 24hr 360 mg PO DAILY acetaminophen 500 mg Tablet 500 mg PO Q8H PRN (Reason: Pain, Mild) sevelamer carbonate 800 mg tablet 800 mg PO BIDWMEAL clonidine HCl 0.2 mg tablet 0.2 mg PO BID insulin aspart U-100 [Novolog PenFill U-100 Insulin] 100 unit/mL Cartridge 1 sliding scale dose SUBCUT USEASDIRECTD Protocol: Insulin Correction Scale Less than or equal to 110 ---- Give (units): 0 111 to 150 Give (units): 0 151 to 200 Give (units): 4 201 to 250 Give (units): 6 251 to 300 Give (units): 8 301 to 350 Give (units): 10 Greater than 350 Give (units): 12 Call if Blood Glucose > : 350 docusate sodium [Colace] 100 mg capsule 100 mg PO BID PRN (Reason: Constipation) Qty: 30 0RF amlodipine 10 mg Tablet 10 mg PO BEDTIME Qty: 30 0RF Protocol: Hold for SBP< HOLD for SBP < : 90 Rx Instructions: replaces prior dose of 5 mg daily bumetanide 2 mg Tablet 2 mg PO DAILY pantoprazole 40 mg Tablet,Delayed Release (Dr/Ec) 40 mg PO DAILY melatonin 5 mg Tablet 5 mg PO BEDTIME PRN (Reason: Sleep) [facility]INDER[facility]-Sharifa Rx 1-60-300 mg-mg-mcg Tablet 1 tab PO DAILY fluticasone propionate [Flovent HFA] 110 mcg/actuation Hfa Aerosol Inhaler 1 puff INHALATION BID sennosides [senna] 8.6 mg tablet 1 - 2 tab PO BEDTIME PRN (Reason: constipation) insulin glargine [Lantus U-100 Insulin] 100 unit/mL solution 7 unit subcut DAILY isosorbide mononitrate 30 mg Tablet Extended Release 24 Hr 30 mg PO DAILY Qty: 30 0RF Protocol: Hold for SBP< HOLD for SBP < : 90 albuterol sulfate 2.5 mg /3 mL (0.083 %) solution for nebulization 3 ml inhalation TID PRN (Reason: Shortness Of Breath) aspirin 81 mg tablet,delayed release (DR/EC) 1 tab PO DAILY olanzapine 5 mg tablet 1 tab PO BEDTIME albuterol sulfate [Ventolin HFA] 90 mcg/actuation HFA aerosol inhaler 2 puff INHALATION Q4-6H PRN (Reason: wheezing) nicotine 7 mg/24 hr Patch 24 Hour 1 patch TRANSDERMAL Q24H diclofenac sodium 1 % gel 2 g topical BID polyethylene glycol 3350 [Miralax] 17 gram/dose powder 17 g PO DAILY PRN (Reason: Constipation) ondansetron 4 mg tablet,disintegrating 4 mg PO BID PRN (Reason: nausea and vomiting) Changed hydralazine 50 mg tablet 1.5 tab PO TID Qty: 90 0RF Discharge Orders: Discharge Order (Routine); Ordered 03/13/22 Ordered By: Kathy Gauthier Diet: Advance to usual diet Activity on Discharge: As tolerated Stand Alone Forms: Patient Portal Discharge page Care Plan Goals: Patient came to the hospital because of acute hypoxemic respiratory failure possibly due to fluid overload /esrd. Patient was given dialysis and seems to be feeling better. Her nausea probably related to uremia related to dialysis which also seems to be improved with symptomatic management. Tolerating diet. Severe constipation: Responded well to laxatives head 3- 4 BMs last night feeling better now. We will give p.o. bowel regimen before discharge. Health Concerns: Continue hemodialysis for ESRD. Continue laxative as needed for constipation. Plan of Treatment: As above. Assessment: As above. Discharge Date/Time: 03/13/22 18:52
[2022-03-13] MEDS: Bumetanide 1 MG TABLET 2 MG PO (17:09)
[2022-03-13] MEDS: 0.9 % Sodium Chloride Flush 3 ML SYRINGE IVFLUSH (17:10)
== END 2022-03-13 18:52 | disposition home health service (06) | DRG 640 ==
LOC: HO.ED 17:04 → HO.EDOVER 03-10 00:24 → HO.S3 03-10 18:13
PROVIDERS: Admitting Provider Internal Medicine; Emergency Provider Emergency Medicine; PCP Internal Medicine; Visit Provider Internal Medicine
DX: E87.70 Fluid overload, unspecified (principal); I50.31 Acute diastolic (congestive) heart failure; N18.6 End stage renal disease; J96.01 Acute respiratory failure with hypoxia; I13.2 Hypertensive heart and chronic kidney disease with heart failure and with stage 5 chronic kidney disease, or end stage renal disease; J44.1 Chronic obstructive pulmonary disease with (acute) exacerbation; F11.20 Opioid dependence, uncomplicated; D63.1 Anemia in chronic kidney disease; I25.10 Atherosclerotic heart disease of native coronary artery without angina pectoris; K59.00 Constipation, unspecified; E11.22 Type 2 diabetes mellitus with diabetic chronic kidney disease; I25.2 Old myocardial infarction; Z20.822 Contact with and (suspected) exposure to COVID-19; Z99.2 Dependence on renal dialysis; Z87.891 Personal history of nicotine dependence; Z79.82 Long term (current) use of aspirin; Z79.4 Long term (current) use of insulin; Z79.899 Other long term (current) drug therapy
CPT/HCPCS: 36415; 71045; 74018; 80048; 80053; 80076; 82607; 82728; 82746; 82947; 83540; 83880; 84484; 85025; 85027; 87635; 90999; 93005; 94640; 99285; J0885; J1200; J2405; J2765; J2930; Q0163

== ENCOUNTER 2022-03-26 14:56 | Emergency (ER) | payer OTHER, SELFPAY ==
[2022-03-26] VITALS (7 sets, daily range): BP systolic 153–230; BP diastolic 66–98; PULSE 62–91; RESP 15–22; TEMP 36.3–37.1; O2SAT 94–100; BMI 24.1
--- NOTE | ~2022-03-26 | CT_ITS ---
EXAMINATION: CT CHEST WITHOUT CONTRAST CLINICAL INFORMATION: Shortness of breath, chills COMPARISON: 12/04/2021 TECHNIQUE: Multidetector volumetric CT imaging of the chest was done. Axial MIP volume rendering provided. Sagittal and coronal reformatted images were obtained. This CT examination was performed using dose optimization techniques as appropriate, variously including the following: *Automated exposure control *Adjustment of mA and/or kV according to patient size (this includes techniques or standardized protocols for targeted exams where dose is matched to indication/reason for exam; i.e. extremities or head) *Use of iterative reconstruction technique DLP: 2129 FINDINGS: LUNGS: Bilateral lower lobe, right greater than left, consolidations. MEDIASTINUM: Cardiomegaly. No mediastinal adenopathy. Mild coronary artery atherosclerotic calcifications. PLEURA: Moderate loculated right pleural effusion. Trace left pleural effusion. AXILLA: No lymphadenopathy. UPPER ABDOMEN: Unremarkable. OSSEOUS STRUCTURES/SOFT TISSUES: Unremarkable. CT/CT chest wo IV con IMPRESSION: 1. Bilateral lower lobe, right greater than left, consolidations. 2. Moderate loculated right pleural effusion. Trace left pleural effusion. Fleischner guidelines were followed.
--- NOTE | ~2022-03-26 | XR_ITS ---
EXAMINATION: XR CHEST CLINICAL INFORMATION: Cough and shortness of breath COMPARISON: Chest x-ray 03/11/2022 TECHNIQUE: Frontal view of the chest was obtained. FINDINGS: Right IJ dual-lumen catheter tip terminates in the right atrium, unchanged. Small right and possible trace left pleural effusions suspected with indistinct costophrenic angles left. Small wedge-shaped opacities in the right lower lung likely mild atelectasis. No new focal airspace opacity. No pneumothorax. Mildly enlarged cardiac silhouette. Increased reticular markings within both lungs suggesting mild pulmonary vascular congestion/interstitial pulmonary edema. No acute osseous injury. XR/XR chest 1V IMPRESSION: 1. Mild pulmonary vascular congestion/interstitial pulmonary edema. Small right and possible trace left pleural effusions. 2. Mild right basilar atelectasis.
--- NOTE | ~2022-03-26 | CT_ITS ---
EXAMINATION: CT ABDOMEN AND PELVIS WITHOUT CONTRAST CLINICAL INFORMATION: Vomiting COMPARISON: 02/07/2022 TECHNIQUE: Multidetector volumetric imaging was performed from the superior aspect of the liver through the pubic symphysis. Sagittal and coronal reformatted images were obtained on the technologist's workstation. This CT examination was performed using dose optimization techniques as appropriate, variously including the following: *Automated exposure control *Adjustment of mA and/or kV according to patient size (this includes techniques or standardized protocols for targeted exams where dose is matched to indication/reason for exam; i.e. extremities or head) *Use of iterative reconstruction technique DLP: 2129 mGy-cm FINDINGS: Evaluation is markedly limited due to patient motion. LUNG BASES: Please see separately dictated chest CT from same day for additional findings. LIVER, GALLBLADDER, AND BILIARY TREE: Noncontrast liver is unremarkable. Status post cholecystectomy. PANCREAS: Unremarkable. SPLEEN: Unremarkable. ADRENAL GLANDS: Unremarkable. KIDNEYS AND URETERS: The kidneys are normal in size, shape, and attenuation. No hydronephrosis, hydroureter, or calculi seen. No perinephric stranding. Benign-appearing left renal cyst. Followup imaging is not routinely recommended for benign appearing cysts. BLADDER: Unremarkable. GASTROINTESTINAL TRACT: The small and large bowel are unremarkable. The appendix is nonvisualized, however no inflammatory changes are seen in the right lower quadrant. ABDOMINAL WALL: No significant hernia is appreciated. LYMPH NODES: Normal. VASCULAR: Aortic atherosclerotic calcifications, no aneurysmal dilation. PELVIC VISCERA: Unremarkable. OSSEOUS STRUCTURES: Redemonstration of superior endplate compression deformity of the L3 vertebral body. CT/CT abdomen pelvis wo IV con IMPRESSION: 1. Evaluation is markedly limited due to patient motion. 2. No acute intra-abdominal abnormality. Fleischner guidelines were followed.
[2022-03-26 15:32] LABS: Glucose, Whole Blood 234 mg/dL (60-115)
--- NOTE | 2022-03-26 15:34 | ED.GENADULT ---
HPI - General Adult General Chief complaint: General Medical <BRANDON Muse Last Filed: 03/26/22 20:52> Stated complaint: VOMITING,FLU LIKE SX PER EMS <BRANDON Muse Last Filed: 03/26/22 20:52> Time Seen by Provider: 03/26/22 15:34 <BRANDON Muse Last Filed: 03/26/22 20:52> Source: patient, EMS and historical interpreter <BRANDON Muse Last Filed: 03/26/22 20:52> Mode of arrival: EMS <BRANDON Muse Last Filed: 03/26/22 20:52> Limitations: language barrier <BRANDON Muse Last Filed: 03/26/22 20:52> History of Present Illness HPI narrative: Patient is a 66 year old assigned female at with a history of ESRD on dialysis, HTN with poor medication compliance, asthma, CHF, DM, and several hospitalistions for respiratory distress/failure presenting to the emergency department today with shortness of breath and feeling generally unwell. Patient states that she was dialyzed yesterday. Patient states that she felt nauseous earlier today. Patient denies any dizziness, lightheadedness, abdominal pain, vomiting, fever, chills, blurry vision, double vision, loss of vision, chest pain, back pain, night sweats, pain with urination, increased urinary frequency, increased urinary urgency, blood in her urine or stool, syncope or a near syncopal episode, recent trauma or falls, bowel incontinence, bladder incontinence, bowel retention, bladder retention, or any other complaints at this time. <BRANDON Muse Last Filed: 03/26/22 20:52> Onset (ago): hour(s) <BRANDON Muse - Last Filed: 03/26/22 20:52> Severity: severe <BRANDON Muse Last Filed: 03/26/22 20:52> Severity scale (1-10): 8 <BRANDON Muse Last Filed: 03/26/22 20:52> Relieving factors: none <BRANDON Muse Last Filed: 03/26/22 20:52> Exacerbating factors: movement <BRANDON Muse Last Filed: 03/26/22 20:52> Associated symptoms: nausea/vomiting and shortness of breath <BRANDON Muse Last Filed: 03/26/22 20:52> Treatments prior to arrival: none <BRANDON Muse Last Filed: 03/26/22 20:52> Related Data Allergies/adverse reactions: Allergies Allergy/AdvReac Type Severity Reaction Status Date / Time Unable to Assess Allergy Verified 03/26/22 15:35 <BRANDON Muse Last Filed: 03/26/22 20:52> Review of Systems Constitutional: Constitutional: Reports no additional constitutional complaints, Denies chills, Denies fever(s) and Denies night sweats <BRANDON Muse Last Filed: 03/26/22 20:52> Eyes: Eyes: Reports no additional eye complaints, Denies blurry vision, Denies change in vision, Denies diplopia, Denies eye discharge, Denies loss of vision and Denies eye pain <BRANDON Muse Last Filed: 03/26/22 20:52> ENT: Denies dizziness <BRANDON Muse Last Filed: 03/26/22 20:52> Cardiovascular: Cardiovascular: Reports no additional cardiovascular complaints, Denies chest pain, Denies lightheadedness, Denies Loss of Consciousness and Reports dyspnea <BRANDON Muse Last Filed: 03/26/22 20:52> Respiratory: Respiratory: Reports dyspnea <BRANDON uMse Last Filed: 03/26/22 20:52> Gastrointestinal: Gastrointestinal: Reports no additional gastrointestinal complaints, Denies abdominal pain, Denies melena, Denies hematochezia, Denies change in bowel habits, Denies change in stool character and Reports nausea <BRANDON Muse Last Filed: 03/26/22 20:52> Genitourinary: Genitourinary: Denies hematuria, Denies urinary frequency, Denies dysuria, Denies urinary incontinence, Denies urinary hesitancy and Denies urinary urgency <BRANDON Muse Last Filed: 03/26/22 20:52> Musculoskeletal: Musculoskeletal: Reports no additional musculoskeletal complaints, Denies numbness and Denies tingling <BRANDON uMse - Last Filed: 03/26/22 20:52> Neurologic: Denies dizziness, Denies loss of vision, Denies numbness and Denies tingling <BRANDON Muse - Last Filed: 03/26/22 20:52> Psychiatric: Psychiatric: Reports no additional psychiatric complaints <BRANDON Muse - Last Filed: 03/26/22 20:52> Endocrine: Endocrine: Reports no additional endocrine complaints <BRANDON Muse - Last Filed: 03/26/22 20:52> Hematologic/Lymphatic: Hematologic/Lymphatic: Reports no additional hematologic/lymphatic complaints <BRANDON Muse - Last Filed: 03/26/22 20:52> Allergic/Immunologic: Allergic/Immunologic: Reports no additional allergic/immunologic complaints <BRANDON Muse - Last Filed: 03/26/22 20:52> [facility] Past Medical History Attestation statement: The following information was validated with the patient. <BRANDON Muse - Last Filed: 03/26/22 20:52> Source: old records reviewed <BRANDON Muse - Last Filed: 03/26/22 20:52> Social History Social History: Social History Advance Directives: No Advance Directives Information Provided: No <BRANDON Muse - Last Filed: 03/26/22 20:52> Physical Exam ED Vital Signs: Vital Signs - 24 hr 03/26/22 15:11 03/26/22 16:36 03/26/22 18:41 Temperature 98.5 F 98.8 F Pulse Rate 73 70 91 Respiratory Rate 16 19 16 Blood Pressure 183/69 H 175/73 H 230/92 H Pulse Oximetry 94 97 100 Oxygen Delivery Method Nasal Cannula Nasal Cannula BiPAP Oxygen Flow Rate 2 50 Fraction of Inspired Oxygen 03/26/22 19:42 03/26/22 20:56 03/26/22 20:57 Temperature Pulse Rate 83 70 Respiratory Rate 22 H 22 H 22 H Blood Pressure 196/98 H Pulse Oximetry 100 Oxygen Delivery Method BiPAP Oxygen Flow Rate 50 Fraction of Inspired Oxygen 03/26/22 23:27 03/27/22 00:27 03/27/22 01:05 Temperature 97.4 F Pulse Rate 62 94 60 Respiratory Rate 15 30 H 20 Blood Pressure 153/66 H 238/98 H 202/83 H Pulse Oximetry 99 97 100 Oxygen Delivery Method BiPAP BiPAP BiPAP Oxygen Flow Rate Fraction of Inspired Oxygen 100 100 03/27/22 01:20 03/27/22 01:20 03/27/22 01:35 Temperature Pulse Rate 58 57 55 Respiratory Rate 22 H Blood Pressure 200/80 H 200/80 H 178/82 H Pulse Oximetry 100 Oxygen Delivery Method BiPAP Oxygen Flow Rate Fraction of Inspired Oxygen 100 03/27/22 01:35 03/27/22 01:37 Temperature Pulse Rate 55 Respiratory Rate 18 18 Blood Pressure 178/82 H Pulse Oximetry 100 Oxygen Delivery Method BiPAP Oxygen Flow Rate Fraction of Inspired Oxygen 100 BMI result Body Mass Index 24.1 <BRANDON Muse - Last Filed: 03/26/22 20:52> Vital Signs - 24 hr 03/26/22 15:11 03/26/22 16:36 03/26/22 18:41 Temperature 98.5 F 98.8 F Pulse Rate 73 70 91 Respiratory Rate 16 19 16 Blood Pressure 183/69 H 175/73 H 230/92 H Pulse Oximetry 94 97 100 Oxygen Delivery Method Nasal Cannula Nasal Cannula BiPAP Oxygen Flow Rate 2 50 Fraction of Inspired Oxygen 03/26/22 19:42 03/26/22 20:56 03/26/22 20:57 Temperature Pulse Rate 83 70 Respiratory Rate 22 H 22 H 22 H Blood Pressure 196/98 H Pulse Oximetry 100 Oxygen Delivery Method BiPAP Oxygen Flow Rate 50 Fraction of Inspired Oxygen 03/26/22 23:27 03/27/22 00:27 03/27/22 01:05 Temperature 97.4 F Pulse Rate 62 94 60 Respiratory Rate 15 30 H 20 Blood Pressure 153/66 H 238/98 H 202/83 H Pulse Oximetry 99 97 100 Oxygen Delivery Method BiPAP BiPAP BiPAP Oxygen Flow Rate Fraction of Inspired Oxygen 100 100 03/27/22 01:20 03/27/22 01:20 03/27/22 01:35 Temperature Pulse Rate 58 57 55 Respiratory Rate 22 H Blood Pressure 200/80 H 200/80 H 178/82 H Pulse Oximetry 100 Oxygen Delivery Method BiPAP Oxygen Flow Rate Fraction of Inspired Oxygen 100 03/27/22 01:35 03/27/22 01:37 Temperature Pulse Rate 55 Respiratory Rate 18 18 Blood Pressure 178/82 H Pulse Oximetry 100 Oxygen Delivery Method BiPAP Oxygen Flow Rate Fraction of Inspired Oxygen 100 BMI result Body Mass Index 24.1 <Moira Freeman MD - Last Filed: 03/27/22 01:47> Const General: cooperative, no acute distress, alert and awake <BRANDON Muse - Last Filed: 03/26/22 20:52> Nutritional Appearance: well nourished <BRANDON Muse - Last Filed: 03/26/22 20:52> Orientation/consciousness: patient oriented x3 <RBANDON Muse - Last Filed: 03/26/22 20:52> Limitations: no limitations <BRANDON Muse - Last Filed: 03/26/22 20:52> HENMT Head: Yes normal to inspection and Yes atraumatic <BRANDON Muse - Last Filed: 03/26/22 20:52> Ears: hearing grossly normal bilaterally and external ears normal <BRANDON Muse - Last Filed: 03/26/22 20:52> General nose exam: Normal external nose present, no nasal discharge noted and no epistaxis <BRANDON Muse - Last Filed: 03/26/22 20:52> Face and sinus: Yes normal facial exam, No abrasion and No laceration <BRANDON Muse - Last Filed: 03/26/22 20:52> Mouth: Normal oral and palatal mucosa present, no drooling and no muffled voice <BRANDON Muse - Last Filed: 03/26/22 20:52> Eyes General: appearance normal, both eyes and all related structures <BRANDON Muse - Last Filed: 03/26/22 20:52> Periorbital: periorbital findings normal <BRANDON Muse - Last Filed: 03/26/22 20:52> Eyelids: Yes eyelids normal <BRANDON Muse - Last Filed: 03/26/22 20:52> Conjunctivae: conjunctivae normal <BRANDON Muse - Last Filed: 03/26/22 20:52> Pupils: Equal, round and reactive pupils present <BRANDON Muse - Last Filed: 03/26/22 20:52> EOM: EOMs intact bilaterally <BRANDON Muse - Last Filed: 03/26/22 20:52> Neck Neck: Yes normal visual inspection, Yes full ROM and Yes no lymphadenopathy <Tiffanie WolffBRANDON - Last Filed: 03/26/22 20:52> Chest Chest palpation & inspection: normal inspection of the chest <Tiffanie WolffBRANDON - Last Filed: 03/26/22 20:52> Resp Effort & Inspection: labored, respiratory distress, tachypneic and tripod positioning <Tiffanie WolffBRANDON - Last Filed: 03/26/22 20:52> Auscultation: crackles diffuse <Tiffanie Wolff OK - Last Filed: 03/26/22 20:52> Cardio Rate: regular rate <Tiffanie WolffBRANDON - Last Filed: 03/26/22 20:52> Rhythm: regular rhythm <Tiffanie Wolff OK - Last Filed: 03/26/22 20:52> GI Inspection: Yes normal to inspection <Tiffanie WolffBRANDON - Last Filed: 03/26/22 20:52> Neuro General: patient oriented x3 and moves all extremities <Tiffanie Wolff OK - Last Filed: 03/26/22 20:52> Cranial nerves: Yes Equal, round and reactive pupils present <Tiffanie Wolff OK - Last Filed: 03/26/22 20:52> Cognition (Neuro): normal cognition <Tiffanie WolffBRANDON - Last Filed: 03/26/22 20:52> Motor exam (neuro): 5/5 motor strength present throughout <Tiffanie WolffBRANDON - Last Filed: 03/26/22 20:52> Sensory Exam: Normal double simultaneous stimulation for sensation <Tiffanie Wolff OK - Last Filed: 03/26/22 20:52> Coordination: [id number] test normal <Tiffanie WolffBRANDON - Last Filed: 03/26/22 20:52> Extrem General: Yes normal to inspection, Yes full ROM and Yes capillary refill normal <Tiffanie WolffBRANDNO - Last Filed: 03/26/22 20:52> Psych Appearance: grossly normal <Tiffanie KeithBRANDON estes - Last Filed: 03/26/22 20:52> Mental Status: mental status grossly normal <Tiffanie KeithBRANDON estes - Last Filed: 03/26/22 20:52> Affect: normal affect <BRANDON Muse - Last Filed: 03/26/22 20:52> Attitude: cooperative <BRANDON Muse - Last Filed: 03/26/22 20:52> Thought process: Normal thought process present <BRANDON Muse Last Filed: 03/26/22 20:52> Thought content: Normal thought content present <BRANDON Muse Last Filed: 03/26/22 20:52> Insight: Good insight present (Psych) <BRANDON Muse - Last Filed: 03/26/22 20:52> Course Reevaluation(s) Reevaluation #1: Patient became acutely hypoxic in the CT scanner and significant respiratory distress, placed back on the BiPAP, noted to be diaphoretic, obtained additional IV access in left arm via ultrasound, contacted clinical over the horizon targeting supervisor as well as travel insurance agent for emergent dialysis however informed that there were no beds/staff. Attempted to contact [facility] for transfer but they are closed to all transfers. Attempted to restate able eyes patient with a combination of labetalol, fentanyl, nitro paste but unsuccessful, nitro drip was started and titrated. Although Nephrology willing to initiate emergency dialysis there is no monitoring available in the dialysis unit and patient on a nitro drip. Concerns regarding CT findings of bilateral lower lobe consolidations (right greater than left) as well as a moderate loculated pleural effusion on the right concerning for instability despite dialysis. Reached out to [facility] who accepts patient to the [facility] with accepting physician Dr. Phipps. [id number]: [facility] declining transfer at this time. Will attempt [facility]. <Moira Freeman MD - Last Filed: 03/27/22 01:47> Time: 01:28 <Moira Freeman MD - Last Filed: 03/27/22 01:47> Reevaluation #2: [facility] now agreeing to transport patient to [facility] and should be arriving soon. Blood pressure has improved. <Moira Freeman MD - Last Filed: 03/27/22 01:47> Time: 01:43 <Moira Freeman MD - Last Filed: 03/27/22 01:47> Reevaluation #3: Additional 45 minutes of critical care time stabilizing patient's respiratory status, blood pressure, obtaining additional IV access and speaking with consultants and making arrangements for emergent transport. <Moira Freeman MD - Last Filed: 03/27/22 01:47> Time: 01:46 <Moira Freeman MD - Last Filed: 03/27/22 01:47> Procedures EJ/Peripheral Line Arm R: Time Out Performed: No <Moira Freeman MD - Last Filed: 03/27/22 01:47> Skin Cleansed in Sterile Fashion: Yes <Moira Freeman MD - Last Filed: 03/27/22 01:47> Size (gauge): 18 <Moira Freeman MD - Last Filed: 03/27/22 01:47> IV Secured and Dressing Applied: Yes <Moira Freeman MD - Last Filed: 03/27/22 01:47> Patient Tolerated Procedure: well <Moira Freeman MD - Last Filed: 03/27/22 01:47> Additional Comments: Ultrasound-guided IV access <Moira Freeman MD - Last Filed: 03/27/22 01:47> Medical Decision Making MDM Narrative Medical decision making narrative: Patient was registered incorrectly and has duplicate accounts. Patient has been seen here previously, multiple times, for similar sequela to todays visit. Registration has been alerted and the patient's records have been flagged for merger. Patient is a 66 year old assigned female at with a history of ESRD on dialysis, non-compliance, HTN, and CHF presenting to the emergency department today with shortness of breath and feeling generally unwell. Patient's physical exam showed an individual in significant respiratory distress with rales/crackles throughout the lungs. Patient's blood work showed a BNP of 4344, intital troponin of 91 with a repeat in the 70s, a creatinine of 5.17, and a BUN of 29. Patient's EKG was unremarkable. Patient's chest x-ray mild pulmonary vascular congestion/interstitial pulmonary edema, small right and possible trace left pleural effusions, and mild right basilar atelectasis. Patient was placed on bipap and given 0.5 inch of nitro paste, 80 of lasix, and 10 of labetolol. There are currently no ICU beds available in the facility and the medical floors are unable to have a patient on rescue BiPaP. Patient will continue to be monitored in the ED while on BiPaP and eventually titrated off for eventual admission to the medical floor. I explained my physical exam findings as well as all test results to the patient. I answered all questions asked by the patient. Patient verbalized agreement and understanding with this treatment plan and continued monitoring/treatment in the ED. Patient signed out to Dr. Freeman. <BRANDON Muse - Last Filed: 03/26/22 20:52> Medical Records Medical records reviewed: Yes I reviewed the patient's medical records. <BRANDON Muse - Last Filed: 03/26/22 20:52> Lab Data Lab results reviewed: Yes I reviewed the patient's lab results. <BRANDON Muse - Last Filed: 03/26/22 20:52> Result diagrams: : 03/26/22 17:08 03/26/22 17:08 <BRANDON Muse - Last Filed: 03/26/22 20:52> Labs: Lab Results 03/26/22 03/26/22 03/26/22 Range/Units 15:10 17:08 17:08 WBC 7.8 (4.8-10.8) X10*3/uL RBC 3.25 L (4.20-5.50) X10*6/uL Hgb 9.6 L (12.0-16.0) g/dl Hct 30.9 L (37.0-47.0) % MCV 95.1 (80.0-98.0) fL MCH 29.5 (27.0-33.0) pg MCHC 31.1 (31.0-35.0) g/dl RDW 17.5 H (11.0-16.0) % Plt Count 184 (160-400) X10*3/uL MPV 10.3 (9.4-12.3) fL Immature Gran % (Auto) 0.5 H (0.0-0.4) % Neut % (Auto) 78.3 H (45-73) % Lymph % (Auto) 12.1 L (20-40) % [place] % (Auto) 7.7 (2-11) % Eos % (Auto) 1.0 (0-4) % Baso % (Auto) 0.4 (0-2) % Lymph # (Auto) 1.0 L (1.2-4.9) X10*3/uL [place] # (Auto) 0.6 (0.1-1.2) X10*3/uL Eos # (Auto) 0.1 (0.0-0.4) X10*3/uL Baso # (Auto) 0.0 (0.0-0.2) X10*3/uL Abs Immat Gran (auto) 0.04 H (0.00-0.03) X10*3/uL Absolute Neuts (auto) 6.1 (2.0-8.3) x10*3/uL Absolute Nucleated RBC 0.000 (0.0-0.012) X10*3/uL Nucleated RBC % (auto) 0.0 (0.0-0.2) /100WBC Sodium (135-145) mmol/L Potassium (3.3-5.1) mmol/L Chloride (96-108) mmol/L Carbon Dioxide (22-29) mmol/L Anion Gap (12-20) BUN (9-16) mg/dL Creatinine (0.5-1.4) mg/dL Estim Creat Clear Calc Estimated GFR POC Glucose 234 H (60-115) mg/dL Random Glucose (60-115) mg/dL Calcium (8.4-10.2) mg/dL Magnesium (1.6-2.6) mg/dL Total Bilirubin (0.0-1.0) mg/dL AST (5-31) U/L ALT (0-31) U/L Alkaline Phosphatase (39-117) U/L Troponin I High Sens (<3.5-17.0) ng/L B-Natriuretic Peptide (<100) pg/mL Total Protein (6.5-8.0) g/dL Albumin (3.5-5.0) g/dL Lipase (8-78) U/L COVID-19 ([facility]) Negative (Negative) COVID-19 Clin Com See Note Influenza Type A (PCR) (Negative) Influenza Type B (PCR) (Negative) RSV RNA Qual (PCR) (Negative) SARS-CoV-2 RNA (RT-PCR) (Negative) 11/06/22 11/06/22 11/06/22 Range/Units 17:08 17:08 17:08 WBC (4.8-10.8) X10*3/uL RBC (4.20-5.50) X10*6/uL Hgb (12.0-16.0) g/dl Hct (37.0-47.0) % MCV (80.0-98.0) fL MCH (27.0-33.0) pg MCHC (31.0-35.0) g/dl RDW (11.0-16.0) % Plt Count (160-400) X10*3/uL MPV (9.4-12.3) fL Immature Gran % (Auto) (0.0-0.4) % Neut % (Auto) (45-73) % Lymph % (Auto) (20-40) % [place] % (Auto) (2-11) % Eos % (Auto) (0-4) % Baso % (Auto) (0-2) % Lymph # (Auto) (1.2-4.9) X10*3/uL [place] # (Auto) (0.1-1.2) X10*3/uL Eos # (Auto) (0.0-0.4) X10*3/uL Baso # (Auto) (0.0-0.2) X10*3/uL Abs Immat Gran (auto) (0.00-0.03) X10*3/uL Absolute Neuts (auto) (2.0-8.3) x10*3/uL Absolute Nucleated RBC (0.0-0.012) X10*3/uL Nucleated RBC % (auto) (0.0-0.2) /100WBC Sodium 137 (135-145) mmol/L Potassium 3.4 (3.3-5.1) mmol/L Chloride 95 L (96-108) mmol/L Carbon Dioxide 27 (22-29) mmol/L Anion Gap 18 (12-20) BUN 29 H (9-16) mg/dL Creatinine 5.17 H* (0.5-1.4) mg/dL Estim Creat Clear Calc 8.8 Estimated GFR 8 POC Glucose (60-115) mg/dL Random Glucose 206 H (60-115) mg/dL Calcium 9.3 (8.4-10.2) mg/dL Magnesium 2.1 (1.6-2.6) mg/dL Total Bilirubin 0.7 (0.0-1.0) mg/dL AST 22 (5-31) U/L ALT 14 (0-31) U/L Alkaline Phosphatase 171 H (39-117) U/L Troponin I High Sens 91.0 H* (<3.5-17.0) ng/L B-Natriuretic Peptide 4344 H (<100) pg/mL Total Protein 7.3 (6.5-8.0) g/dL Albumin 4.4 (3.5-5.0) g/dL Lipase 17 (8-78) U/L COVID-19 ([facility]) (Negative) COVID-19 Clin Com Influenza Type A (PCR) NEGATIVE (Negative) Influenza Type B (PCR) NEGATIVE (Negative) RSV RNA Qual (PCR) NEGATIVE (Negative) SARS-CoV-2 RNA (RT-PCR) NEGATIVE (Negative) 03/26/22 03/26/22 03/26/22 Range/Units 17:08 18:36 19:54 WBC (4.8-10.8) X10*3/uL RBC (4.20-5.50) X10*6/uL Hgb (12.0-16.0) g/dl Hct (37.0-47.0) % MCV (80.0-98.0) fL MCH (27.0-33.0) pg MCHC (31.0-35.0) g/dl RDW (11.0-16.0) % Plt Count (160-400) X10*3/uL MPV (9.4-12.3) fL Immature Gran % (Auto) (0.0-0.4) % Neut % (Auto) (45-73) % Lymph % (Auto) (20-40) % [place] % (Auto) (2-11) % Eos % (Auto) (0-4) % Baso % (Auto) (0-2) % Lymph # (Auto) (1.2-4.9) X10*3/uL [place] # (Auto) (0.1-1.2) X10*3/uL Eos # (Auto) (0.0-0.4) X10*3/uL Baso # (Auto) (0.0-0.2) X10*3/uL Abs Immat Gran (auto) (0.00-0.03) X10*3/uL Absolute Neuts (auto) (2.0-8.3) x10*3/uL Absolute Nucleated RBC (0.0-0.012) X10*3/uL Nucleated RBC % (auto) (0.0-0.2) /100WBC Sodium (135-145) mmol/L Potassium (3.3-5.1) mmol/L Chloride (96-108) mmol/L Carbon Dioxide (22-29) mmol/L Anion Gap (12-20) BUN (9-16) mg/dL Creatinine (0.5-1.4) mg/dL Estim Creat Clear Calc Estimated GFR POC Glucose 213 H (60-115) mg/dL Random Glucose (60-115) mg/dL Calcium (8.4-10.2) mg/dL Magnesium (1.6-2.6) mg/dL Total Bilirubin (0.0-1.0) mg/dL AST (5-31) U/L ALT (0-31) U/L Alkaline Phosphatase (39-117) U/L Troponin I High Sens 79.0 H* (<3.5-17.0) ng/L B-Natriuretic Peptide Cancelled (<100) pg/mL Total Protein (6.5-8.0) g/dL Albumin (3.5-5.0) g/dL Lipase (8-78) U/L COVID-19 ([facility]) (Negative) COVID-19 Clin Com Influenza Type A (PCR) (Negative) Influenza Type B (PCR) (Negative) RSV RNA Qual (PCR) (Negative) SARS-CoV-2 RNA (RT-PCR) (Negative) <BRANDON Muse - Last Filed: 03/26/22 20:52> Lab Results 03/26/22 03/26/22 03/26/22 Range/Units 15:10 17:08 17:08 WBC 7.8 (4.8-10.8) X10*3/uL RBC 3.25 L (4.20-5.50) X10*6/uL Hgb 9.6 L (12.0-16.0) g/dl Hct 30.9 L (37.0-47.0) % MCV 95.1 (80.0-98.0) fL MCH 29.5 (27.0-33.0) pg MCHC 31.1 (31.0-35.0) g/dl RDW 17.5 H (11.0-16.0) % Plt Count 184 (160-400) X10*3/uL MPV 10.3 (9.4-12.3) fL Immature Gran % (Auto) 0.5 H (0.0-0.4) % Neut % (Auto) 78.3 H (45-73) % Lymph % (Auto) 12.1 L (20-40) % [place] % (Auto) 7.7 (2-11) % Eos % (Auto) 1.0 (0-4) % Baso % (Auto) 0.4 (0-2) % Lymph # (Auto) 1.0 L (1.2-4.9) X10*3/uL [place] # (Auto) 0.6 (0.1-1.2) X10*3/uL Eos # (Auto) 0.1 (0.0-0.4) X10*3/uL Baso # (Auto) 0.0 (0.0-0.2) X10*3/uL Abs Immat Gran (auto) 0.04 H (0.00-0.03) X10*3/uL Absolute Neuts (auto) 6.1 (2.0-8.3) x10*3/uL Absolute Nucleated RBC 0.000 (0.0-0.012) X10*3/uL Nucleated RBC % (auto) 0.0 (0.0-0.2) /100WBC Sodium (135-145) mmol/L Potassium (3.3-5.1) mmol/L Chloride (96-108) mmol/L Carbon Dioxide (22-29) mmol/L Anion Gap (12-20) BUN (9-16) mg/dL Creatinine (0.5-1.4) mg/dL Estim Creat Clear Calc Estimated GFR POC Glucose 234 H (60-115) mg/dL Random Glucose (60-115) mg/dL Calcium (8.4-10.2) mg/dL Magnesium (1.6-2.6) mg/dL Total Bilirubin (0.0-1.0) mg/dL AST (5-31) U/L ALT (0-31) U/L Alkaline Phosphatase (39-117) U/L Troponin I High Sens (<3.5-17.0) ng/L B-Natriuretic Peptide (<100) pg/mL Total Protein (6.5-8.0) g/dL Albumin (3.5-5.0) g/dL Lipase (8-78) U/L COVID-19 ([facility]) Negative (Negative) COVID-19 Clin Com See Note Influenza Type A (PCR) (Negative) Influenza Type B (PCR) (Negative) RSV RNA Qual (PCR) (Negative) SARS-CoV-2 RNA (RT-PCR) (Negative) 03/26/22 03/26/22 03/26/22 Range/Units 17:08 17:08 17:08 WBC (4.8-10.8) X10*3/uL RBC (4.20-5.50) X10*6/uL Hgb (12.0-16.0) g/dl Hct (37.0-47.0) % MCV (80.0-98.0) fL MCH (27.0-33.0) pg MCHC (31.0-35.0) g/dl RDW (11.0-16.0) % Plt Count (160-400) X10*3/uL MPV (9.4-12.3) fL Immature Gran % (Auto) (0.0-0.4) % Neut % (Auto) (45-73) % Lymph % (Auto) (20-40) % [place] % (Auto) (2-11) % Eos % (Auto) (0-4) % Baso % (Auto) (0-2) % Lymph # (Auto) (1.2-4.9) X10*3/uL [place] # (Auto) (0.1-1.2) X10*3/uL Eos # (Auto) (0.0-0.4) X10*3/uL Baso # (Auto) (0.0-0.2) X10*3/uL Abs Immat Gran (auto) (0.00-0.03) X10*3/uL Absolute Neuts (auto) (2.0-8.3) x10*3/uL Absolute Nucleated RBC (0.0-0.012) X10*3/uL Nucleated RBC % (auto) (0.0-0.2) /100WBC Sodium 137 (135-145) mmol/L Potassium 3.4 (3.3-5.1) mmol/L Chloride 95 L (96-108) mmol/L Carbon Dioxide 27 (22-29) mmol/L Anion Gap 18 (12-20) BUN 29 H (9-16) mg/dL Creatinine 5.17 H* (0.5-1.4) mg/dL Estim Creat Clear Calc 8.8 Estimated GFR 8 POC Glucose (60-115) mg/dL Random Glucose 206 H (60-115) mg/dL Calcium 9.3 (8.4-10.2) mg/dL Magnesium 2.1 (1.6-2.6) mg/dL Total Bilirubin 0.7 (0.0-1.0) mg/dL AST 22 (5-31) U/L ALT 14 (0-31) U/L Alkaline Phosphatase 171 H (39-117) U/L Troponin I High Sens 91.0 H* (<3.5-17.0) ng/L B-Natriuretic Peptide 4344 H (<100) pg/mL Total Protein 7.3 (6.5-8.0) g/dL Albumin 4.4 (3.5-5.0) g/dL Lipase 17 (8-78) U/L COVID-19 ([facility]) (Negative) COVID-19 Clin Com Influenza Type A (PCR) NEGATIVE (Negative) Influenza Type B (PCR) NEGATIVE (Negative) RSV RNA Qual (PCR) NEGATIVE (Negative) SARS-CoV-2 RNA (RT-PCR) NEGATIVE (Negative) 03/26/22 03/26/22 03/26/22 Range/Units 17:08 18:36 19:54 WBC (4.8-10.8) X10*3/uL RBC (4.20-5.50) X10*6/uL Hgb (12.0-16.0) g/dl Hct (37.0-47.0) % MCV (80.0-98.0) fL MCH (27.0-33.0) pg MCHC (31.0-35.0) g/dl RDW (11.0-16.0) % Plt Count (160-400) X10*3/uL MPV (9.4-12.3) fL Immature Gran % (Auto) (0.0-0.4) % Neut % (Auto) (45-73) % Lymph % (Auto) (20-40) % [place] % (Auto) (2-11) % Eos % (Auto) (0-4) % Baso % (Auto) (0-2) % Lymph # (Auto) (1.2-4.9) X10*3/uL [place] # (Auto) (0.1-1.2) X10*3/uL Eos # (Auto) (0.0-0.4) X10*3/uL Baso # (Auto) (0.0-0.2) X10*3/uL Abs Immat Gran (auto) (0.00-0.03) X10*3/uL Absolute Neuts (auto) (2.0-8.3) x10*3/uL Absolute Nucleated RBC (0.0-0.012) X10*3/uL Nucleated RBC % (auto) (0.0-0.2) /100WBC Sodium (135-145) mmol/L Potassium (3.3-5.1) mmol/L Chloride (96-108) mmol/L Carbon Dioxide (22-29) mmol/L Anion Gap (12-20) BUN (9-16) mg/dL Creatinine (0.5-1.4) mg/dL Estim Creat Clear Calc Estimated GFR POC Glucose 213 H (60-115) mg/dL Random Glucose (60-115) mg/dL Calcium (8.4-10.2) mg/dL Magnesium (1.6-2.6) mg/dL Total Bilirubin (0.0-1.0) mg/dL AST (5-31) U/L ALT (0-31) U/L Alkaline Phosphatase (39-117) U/L Troponin I High Sens 79.0 H* (<3.5-17.0) ng/L B-Natriuretic Peptide Cancelled (<100) pg/mL Total Protein (6.5-8.0) g/dL Albumin (3.5-5.0) g/dL Lipase (8-78) U/L COVID-19 (KRYSTINA) (Negative) COVID-19 Clin Com Influenza Type A (PCR) (Negative) Influenza Type B (PCR) (Negative) RSV RNA Qual (PCR) (Negative) SARS-CoV-2 RNA (RT-PCR) (Negative) <Moira Freeman MD - Last Filed: 03/27/22 01:47> Imaging Data Chest x-ray: Attestation: I personally reviewed and interpreted this imaging study as follows: <BRANDON Muse - Last Filed: 03/26/22 20:52> My impression: Pulmonary congestion. <BRANDON Muse - Last Filed: 03/26/22 20:52> Radiologist's impression: EXAMINATION: XR CHEST CLINICAL INFORMATION: Cough and shortness of breath COMPARISON: Chest x-ray 03/11/2022 TECHNIQUE: Frontal view of the chest was obtained. FINDINGS: Right IJ dual-lumen catheter tip terminates in the right atrium, unchanged. Small right and possible trace left pleural effusions suspected with indistinct costophrenic angles left. Small wedge-shaped opacities in the right lower lung likely mild atelectasis. No new focal airspace opacity. No pneumothorax. Mildly enlarged cardiac silhouette. Increased reticular markings within both lungs suggesting mild pulmonary vascular congestion/interstitial pulmonary edema. No acute osseous injury. XR/XR chest 1V IMPRESSION: 1.? Mild pulmonary vascular congestion/interstitial pulmonary edema. Small right and possible trace left pleural effusions. 2.? Mild right basilar atelectasis. Dictated By: Mike Noonan Signed By: Electronically signed by Mike?Saran 03/26/22 1643 <BRANDON Muse - Last Filed: 03/26/22 20:52> ECG Data Attestation: I personally reviewed and interpreted this ECG as follows: <BRANDON Muse - Last Filed: 03/26/22 20:52> Prior ECG tracings: available for review <BRANDON Muse - Last Filed: 03/26/22 20:52> Interpretation: Vent. Rate: 097 BPM ? ? Atrial Rate: 097 BPM P-R Int: 174 ms? QRS Dur: 088 ms QT Int: 344 ms ? ? ? P-R-T Axes: 064 007 096 degrees QTc Int: 436 ms ? Normal sinus rhythm Biatrial enlargement Left ventricular hypertrophy with repolarization abnormality ( Sokolow-Burton ) Abnormal ECG No previous ECGs available DD/ 1835 <BRANDON Muse - Last Filed: 03/26/22 20:52> Critical Care Time Critical Care Time Critical Care Time: Yes <BRANDON Muse - Last Filed: 03/26/22 20:52> Total Critical Care Time: 45 <BRANDON Muse - Last Filed: 03/26/22 20:52> Attestation: I spent 45 minutes of Critical Care Time with this patient. This does not include time spent on separately reported billable procedures. <BRANDON Muse - Last Filed: 03/26/22 20:52> Discharge Plan Discharge Clinical Impression: CHF (congestive heart failure), Hypoxia, End stage chronic kidney disease <BRANDON Muse - Last Filed: 03/26/22 20:52> Patient Disposition: Still a Patient <BRANDON Muse - Last Filed: 03/26/22 20:52>
--- NOTE | 2022-03-26 15:35 | ECG_ITS ---
Test Reason : DYSPNEA Blood Pressure : / mmHG Vent. Rate : 097 BPM Atrial Rate : 097 BPM P-R Int : 174 ms QRS Dur : 088 ms QT Int : 344 ms P-R-T Axes : 064 007 096 degrees QTc Int : 436 ms Normal sinus rhythm Biatrial enlargement Left ventricular hypertrophy with repolarization abnormality ( Sokolow-Burton ) Abnormal ECG No previous ECGs available Referred By: Tiffanie Wolff Electronically Signed By:CHRISTY AN MD
[2022-03-26] MEDS: Ondansetron ODT 4 MG TAB.RAPDIS TRANSLINGU (16:36)
--- NOTE | 2022-03-26 16:41 | PC.NURSE ---
IV fluids running late, unable to obtain an IV due to pt being a hard stick. PA aware
[2022-03-26 17:18] LABS: MANUAL DIFF FLAG NO
[2022-03-26 17:26] LABS: Basophils Percent Auto 0.4 % (0-2); Eosinophils Absolute Auto 0.1 X10*3/uL (0.0-0.4); Hematocrit 30.9 % (37.0-47.0); Hemoglobin 9.6 g/dl (12.0-16.0); Imm Gran Abs Auto 0.04 X10*3/uL (0.00-0.03); Imm Gran Pct Auto 0.5 % (0.0-0.4); Lymphocytes Percent Auto 12.1 % (20-40); Mean Corpuscular HGB Conc 31.1 g/dl (31.0-35.0); Mean Corpuscular Hemoglobin 29.5 pg (27.0-33.0); Mean Corpuscular Volume 95.1 fL (80.0-98.0); Mean Platelet Volume 10.3 fL (9.4-12.3); Monocytes Absolute Auto 0.6 X10*3/uL (0.1-1.2); Monocytes Percent Auto 7.7 % (2-11); Neutrophils Absolute Auto 6.1 x10*3/uL (2.0-8.3); Neutrophils Percent Auto 78.3 % (45-73); Platelet Count 184 X10*3/uL (160-400); Red Blood Count 3.25 X10*6/uL (4.20-5.50); Red Cell Distribution Width 17.5 % (11.0-16.0); White Blood Count 7.8 X10*3/uL (4.8-10.8)
[2022-03-26 17:40] LABS: Alanine Aminotransferase 14 U/L (0-31); Albumin Level 4.4 g/dL (3.5-5.0); Alkaline Phosphatase 171 U/L (39-117); Anion Gap 18 (12-20); Aspartate Amino Transferase 22 U/L (5-31); Bilirubin Total 0.7 mg/dL (0.0-1.0); Blood Urea Nitrogen 29 mg/dL (9-16); Calcium 9.3 mg/dL (8.4-10.2); Carbon Dioxide 27 mmol/L (22-29); Chloride 95 mmol/L (96-108); Creatinine Clr Calc Pharmacy 8.8; Estimated Glomerular Filt Rate 8; Glucose Random 206 mg/dL (60-115); Lipase 17 U/L (8-78); Magnesium 2.1 mg/dL (1.6-2.6); Potassium 3.4 mmol/L (3.3-5.1); Sodium 137 mmol/L (135-145); Total Protein 7.3 g/dL (6.5-8.0)
[2022-03-26 17:44] LABS: COVID-19 Test Negative (Negative); IDNOW Serial# 16C4AD1C
[2022-03-26] MEDS: Nitroglycerin 2 % Oint 1 GM Packet 0.5 INCH TRANSDERMA (18:05)
[2022-03-26 18:06] LABS: B Type Natriuretic Peptide 4344 pg/mL (<100)
[2022-03-26] MEDS: fentaNYL citrate/PF 100 MCG/2 ML VIAL 25 MCG IVPUSH ×2 (18:09→19:07)
[2022-03-26] MEDS: Furosemide 100 MG/10 ML VIAL 80 MG IVPUSH (18:09)
[2022-03-26] MEDS: 0.9 % Sodium Chloride 1,000 ML 999 ML IV (18:09)
[2022-03-26 18:15] LABS: Influenza A PCR NEGATIVE (Negative); Influenza B PCR NEGATIVE (Negative); Resp Syncy Virus RNA Qual PCR NEGATIVE (Negative); SARS COV2 PCR INHOUSE NEGATIVE (Negative)
[2022-03-26 18:39] LABS: Glucose, Whole Blood 213 mg/dL (60-115)
--- NOTE | 2022-03-26 18:42 | PC.NURSE ---
recieved pt from room 15, pt diaphoretic with increased work of breathing tachypneic in 40s, assisted back on bipap and pt quickly noted with decreased work of breathing and appeared more comfortable. titrated to 50% of fi02 and noted with sat 100% then titrated at 30% however pt desat down to 85%, fi02 back to 50% at this time. POC 213. NSR on tele rate 90s. RR 30. Pt asking to remove bipap occasionally but easily educated and redirected.
[2022-03-26] MEDS: LORazepam 0.5 MG TABLET PO (19:07)
[2022-03-26] MEDS: Labetalol HCL 100 MG/20 ML VIAL 10 MG IVPUSH (19:39)
[2022-03-26] MEDS: Albuterol Sulfate 7.5 MG, Albuterol/Iprat 2.5/0.5MG 3 ML 3 ML INHALE (20:55)
[2022-03-27] VITALS (10 sets, daily range): BP systolic 165–238; BP diastolic 58–98; PULSE 55–94; RESP 16–30; O2SAT 97–100
[2022-03-27] MEDS: fentaNYL citrate/PF 100 MCG/2 ML VIAL 25 MCG IVPUSH ×3 (00:18→01:49)
[2022-03-27] MEDS: Labetalol HCL 100 MG/20 ML VIAL 10 MG IVPUSH ×3 (00:24→00:58)
[2022-03-27] MEDS: Nitroglycerin 2 % Oint 1 GM Packet 1 INCH TRANSDERMA (01:00)
--- NOTE | 2022-03-27 01:09 | PC.NURSE ---
[facility]'s transfer line called at 0024 per . Spoke with Tiffanie she stated they are closed to ICU transfers.MD cantrell
[2022-03-27] MEDS: Nitroglycerin/D5W 100 MG/250 ML INFUS..BTL IVCONT (01:20)
--- NOTE | 2022-03-27 01:22 | PC.NURSE ---
[facility] transfer line called at 0121 per Bekah Velasco speaking with doctor at this time.
--- NOTE | 2022-03-27 01:27 | PC.NURSE ---
Addendum entered by Gwendolyn Yousif RN 03/27/22 02:45: 0235 BP 170/80 Per protocol. increased by 20 mcg/min, total 120 mcg/min EMS took over care at this time. Pt secured and connected to all equipment, transfered with monitor, Bipap, nitro drip. Addendum entered by Gwendolyn Yousif RN 03/27/22 02:44: 0220 BP 165/75 Per protocol, increased by 20 mcg/min, total 100 mcg/min Addendum entered by Gwendolyn Yousif RN 03/27/22 02:07: 0205 BP 166/77 Per protovol, increased by 20 mcg/min, total 80 mcg/min Addendum entered by Gwendolyn Yousif RN 03/27/22 01:52: 0150 BP 183/58 Per protocol, increased by 20 mcg/min, total 60 mcg/min Addendum entered by Gwendolyn Yousif RN 03/27/22 01:38: 0135 BP 178/82 Per protocol, Increased rate by 20 mcg/min, total 40 mcg/min Original Note: 0120 Pt started Nitro drip Starting titration 20 mcg/min BP 200/80
--- NOTE | 2022-03-27 01:44 | PC.NURSE ---
[facility] called at 0127 for a stat transfer per . 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 At 0140 [facility] called and stated they would be here within 20mins. RN aware
[2022-03-27] MEDS: LORazepam 0.5 MG TABLET PO (01:46)
--- NOTE | 2022-03-27 02:04 | PC.NURSE ---
Ems arrived at 0200 to transport patient to [facility] ER to ER.
== END 2022-03-27 02:49 | disposition short-term general hospital (02) ==
PROVIDERS: Physician Assistant Medical; Emergency Provider Student in an Organized Health Care Education/Training Program; PCP Internal Medicine
DX: I13.2 Hypertensive heart and chronic kidney disease with heart failure and with stage 5 chronic kidney disease, or end stage renal disease (principal); I50.20 Unspecified systolic (congestive) heart failure; R09.02 Hypoxemia; R11.10 Vomiting, unspecified; R06.02 Shortness of breath; E11.22 Type 2 diabetes mellitus with diabetic chronic kidney disease; N18.6 End stage renal disease; Z79.4 Long term (current) use of insulin; Z79.899 Other long term (current) drug therapy; Z20.822 Contact with and (suspected) exposure to COVID-19; Z99.2 Dependence on renal dialysis
CPT/HCPCS: 0241U; 36415; 36556; 71045; 71250; 74176; 80053; 82947; 83690; 83735; 83880; 84484; 85025; 87635; 93005; 94640; 94660; 96374; 96376; 99285; J1940; J3010

== ENCOUNTER 2022-04-14 01:38 | Inpatient (IN) | payer OTHER, SELFPAY ==
[2022-04-14] VITALS (27 sets, daily range): BP systolic 135–211; BP diastolic 60–138; PULSE 56–98; RESP 10–29; TEMP 36.6–37.1; O2SAT 90–100; BMI 28.7
--- NOTE | ~2022-04-14 | XR_ITS ---
EXAMINATION: XR CHEST CLINICAL INFORMATION: Shortness of breath COMPARISON: 03/26/2022 TECHNIQUE: Frontal view of the chest was obtained. FINDINGS: Right chest wall central catheter terminates near the cavoatrial junction. The lungs are well expanded. Central vascular prominence with bronchial wall thickening and interstitial prominence. Patchy perihilar opacities. No pleural effusion or pneumothorax. The cardiomediastinal silhouette is unchanged, with a calcified aorta. XR/XR chest 1V IMPRESSION: Central vascular prominence with bronchial wall thickening and interstitial prominence suggestive of mild edema.
--- NOTE | 2022-04-14 01:44 | ECG_ITS ---
Test Reason : DYSPNEA Blood Pressure : / mmHG Vent. Rate : 081 BPM Atrial Rate : 081 BPM P-R Int : 166 ms QRS Dur : 090 ms QT Int : 378 ms P-R-T Axes : 048 -09 085 degrees QTc Int : 439 ms Normal sinus rhythm Possible Left atrial enlargement Left ventricular hypertrophy with repolarization abnormality ( R in aVL , Sokolow-Burton , Jona product ) Abnormal ECG When compared with ECG of 09-MAR-2022 19:24, T wave inversion less evident in Lateral leads ST less depressed in Lateral leads Referred By: Damien Latif Electronically Signed By:CHRISTY AN MD
[2022-04-14] MEDS: Furosemide 100 MG/10 ML VIAL IVPUSH (01:50)
[2022-04-14 01:54] LABS: MANUAL DIFF FLAG NO
[2022-04-14 01:56] LABS: Basophils Absolute Auto 0.1 X10*3/uL (0.0-0.2); Basophils Percent Auto 0.4 % (0-2); Eosinophils Absolute Auto 0.2 X10*3/uL (0.0-0.4); Eosinophils Percent Auto 1.3 % (0-4); Hematocrit 32.1 % (37.0-47.0); Hemoglobin 10.2 g/dl (12.0-16.0); Imm Gran Abs Auto 0.05 X10*3/uL (0.00-0.03); Imm Gran Pct Auto 0.4 % (0.0-0.4); Lymphocytes Absolute Auto 0.9 X10*3/uL (1.2-4.9); Lymphocytes Percent Auto 7.7 % (20-40); Mean Corpuscular HGB Conc 31.8 g/dl (31.0-35.0); Mean Corpuscular Hemoglobin 30.9 pg (27.0-33.0); Mean Corpuscular Volume 97.3 fL (80.0-98.0); Mean Platelet Volume 9.9 fL (9.4-12.3); Monocytes Absolute Auto 0.6 X10*3/uL (0.1-1.2); Monocytes Percent Auto 5.4 % (2-11); Neutrophils Absolute Auto 9.7 x10*3/uL (2.0-8.3); Neutrophils Percent Auto 84.8 % (45-73); Platelet Count 308 X10*3/uL (160-400); White Blood Count 11.5 X10*3/uL (4.8-10.8)
[2022-04-14 01:58] LABS: VBG Base Excess -1.3 mmol/L; VBG HCO3 25 mmol/L (22-26); VBG pCO2 50 mmHg; VBG pO2 116 mmHg
[2022-04-14 01:59] LABS: Venous Blood Gas Refer to POC result
[2022-04-14 02:05] LABS: Lactic Acid 0.6 mmol/L (0.5-2.0)
[2022-04-14 02:15] LABS: Alanine Aminotransferase 21 U/L (0-31); Albumin Level 4.6 g/dL (3.5-5.0); Alkaline Phosphatase 167 U/L (39-117); Anion Gap 24 (12-20); Aspartate Amino Transferase 43 U/L (5-31); Bilirubin Total 0.6 mg/dL (0.0-1.0); Blood Urea Nitrogen 46 mg/dL (9-16); Calcium 9.3 mg/dL (8.4-10.2); Carbon Dioxide 20 mmol/L (22-29); Chloride 94 mmol/L (96-108); Creatinine Clr Calc Pharmacy 7.6; Estimated Glomerular Filt Rate 7; Glucose Random 235 mg/dL (60-115); Potassium 5.1 mmol/L (3.3-5.1); Sodium 133 mmol/L (135-145); Total Protein 8.2 g/dL (6.5-8.0)
[2022-04-14] MEDS: Nitroglycerin 2 % Oint 1 GM Packet 1 INCH TRANSDERMA (02:19)
[2022-04-14] MEDS: Labetalol HCL 100 MG/20 ML VIAL 20 MG IVPUSH (02:22)
[2022-04-14] MEDS: ondansetron HCL 4 MG/2 ML VIAL IVPUSH ×3 (02:28→17:31)
--- NOTE | 2022-04-14 02:45 | ED_ITS ---
HPI - SOB/Dyspnea General Chief Complaint: Dyspnea Stated Complaint: Difficulty Breathing, CPAP Time Seen by Provider: 04/14/22 01:44 Source: patient and EMS Mode of arrival: EMS Limitations: no limitations History of Present Illness HPI Narrative: Patient's history of hypertension, CHF, diabetes, CAD, end-stage renal disease on dialysis, asthma last dialysis was 2 days ago comes here for increased shortness of breath started earlier today got worse prior to arrival patient is saturating 89% gasping for air when EMS arrived BiPAP was placed patient saturating 100% on 50% BiPAP tachypneic with a rate 29 blood pressure on arrival was 211/85 pulse rate 87 no chest pain no fever or chills Patient does not make any urine was admitted here on 02/09 for same. Related Data Home Medications Medication Instructions Recorded Confirmed buprenorphine 8 mg-naloxone 2 mg 1 strip sublingual BID 10/22/20 04/14/22 sublingual film (Suboxone) diltiazem HCl 180 mg 360 mg PO DAILY 10/22/20 04/14/22 capsule,extended release 24 hr bumetanide 2 mg tablet 2 mg PO DAILY 04/15/21 04/14/22 fluticasone propionate 110 1 puff inhalation BID 04/15/21 04/14/22 mcg/actuation HFA aerosol inhaler (Flovent HFA) melatonin 5 mg tablet 5 mg PO BEDTIME PRN Sleep 04/15/21 04/14/22 pantoprazole 40 mg tablet,delayed 40 mg PO DAILY 04/15/21 04/14/22 release vitamin B comp no.3-folic acid 1 1 tab PO DAILY 04/15/21 04/14/22 mg-vit C 60 mg-biotin 300 mcg tablet ([employer]) sennosides 8.6 mg tablet (senna) 1 - 2 tab PO BEDTIME PRN 05/11/21 04/14/22 constipation acetaminophen 500 mg tablet 500 mg PO Q8H PRN Pain, Mild 06/10/21 04/14/22 sevelamer carbonate 800 mg tablet 800 mg PO BIDWMEAL 06/10/21 04/14/22 clonidine HCl 0.2 mg tablet 0.2 mg PO BID 07/27/21 04/14/22 insulin aspart U-100 100 unit/mL 1 sliding scale dose subcut 07/27/21 04/14/22 subcutaneous cartridge (Novolog USEASDIRECTD PenFill U-100 Insulin aspart) insulin glargine 100 unit/mL 7 unit subcut DAILY 09/18/21 04/14/22 subcutaneous solution (Lantus U-100 Insulin) albuterol sulfate 2.5 mg/3 mL 3 ml inhalation TID PRN Shortness 10/11/21 04/14/22 (0.083 %) solution for nebulization Of Breath aspirin 81 mg tablet,delayed 1 tab PO DAILY 10/11/21 04/14/22 release albuterol sulfate 90 mcg/actuation 2 puff inhalation Q4-6H PRN 01/31/22 04/14/22 aerosol inhaler (Ventolin HFA) wheezing nicotine 7 mg/24 hr daily 1 patch transdermal Q24H 01/31/22 04/14/22 transdermal patch olanzapine 5 mg tablet 1 tab PO BEDTIME 01/31/22 04/14/22 diclofenac sodium 1 % topical gel 2 g topical BID 03/09/22 04/14/22 ondansetron 4 mg disintegrating 4 mg PO BID PRN nausea and vomiting 03/09/22 04/14/22 tablet polyethylene glycol 3350 17 17 g PO DAILY PRN Constipation 03/09/22 04/14/22 gram/dose oral powder (Miralax) Previous Rx's Medication Instructions Recorded amlodipine 10 mg tablet 10 mg PO BEDTIME #30 tabs 03/07/21 isosorbide mononitrate 30 mg 30 mg PO DAILY #30 tabs 09/20/21 tablet,extended release 24 hr docusate sodium 100 mg capsule 100 mg PO BID PRN Constipation #30 12/04/21 (Colace) caps hydralazine 50 mg tablet 1.5 tab PO TID #90 tabs 03/13/22 Allergies Allergy/AdvReac Type Severity Reaction Status Date / Time No Known Allergies Allergy Mild NOT Verified 04/14/22 01:40 APPLICABLE Review of Systems Review of Systems: Yes all other systems are reviewed and are negative PMFSH Past Medical History Medical History (Updated 04/14/22 @ 04:48 by Anamika Lind MD) Abdominal pain Acute exacerbation of chronic obstructive airways disease Acute exacerbation of chronic obstructive pulmonary disease (COPD) Anasarca Anemia Anemia in chronic kidney disease Ascites Bilateral edema of lower extremity Congestive heart failure (CHF) Constipation Diabetes mellitus End stage renal disease on dialysis Essential hypertension Heart failure with preserved ejection fraction HTN (hypertension) Hypertrophic cardiomyopathy Non-compliance Surgical History No pertinent past surgical history Family History Family History Other Hypertension Social History Social History Household Members: None Housing: Apartment Do you presently have visiting nurse or other home services: Yes Alcohol intake: never Patient Tobacco Use Status: Former Tobacco user Tobacco use type: Cigarette Cigarette Packs Per Day: 1 Cigarettes Per Day: 5 Years Smoked: 18 e-Cigarette/Vaping Use: Never Used Second Hand Smoke Exposure: No Substance Use Type: Heroin Advance Directives Date on File: 04/20/21 service: No Current occupational status: unemployed and disabled Physical Exam Vital Signs: Vital Signs: Last Vital Signs Temp 97.8 F 04/14/22 06:29 Pulse 66 04/14/22 06:29 Resp 20 04/14/22 06:29 BP 170/68 H 04/14/22 06:29 Pulse Ox 100 04/14/22 06:29 O2 Del Method 04/14/22 06:29 FiO2 40 04/14/22 06:29 BMI result Body Mass Index 30.0 Appearance: Alert. Oriented X3. severe respiratory distress on BiPAP unable to speak full sentences Eyes: pallor+ ENT: Pharynx normal. Oral Mucosa moist Neck: Normal inspection. Neck supple. CVS: Normal heart rate and rhythm. Pulses normal. Respiratory: No respiratory distress. Equal air entry bilateral, bilateral diffuse rales Abdomen: Soft and nontender. Bowel sounds are present, no mass palpable, no CVA tenderness Skin: Skin warm and dry. Normal skin color. Normal skin turgor. Extremities:2+lower extremity edema. No calf tenderness Neuro: Oriented X 3. No motor deficit. No sensory deficit.No cerebellar signs , cranial nerves II-XII intact Medications Administered Generic Name Dose Route Start Last Admin Trade Name Freq PRN Reason Stop Dose Admin Heparin Sodium (Porcine) 5,000 unit 04/14/22 05:00 04/14/22 05:56 Heparin Sodium,Porcine 5,000 Unit/Ml Vial SUBCUT 5,000 unit Q8H PHAN Administration Discontinued Medications Generic Name Dose Route Start Last Admin Trade Name Goyo PRN Reason Stop Dose Admin Furosemide 100 mg 04/14/22 01:45 04/14/22 01:50 Furosemide 100 Mg/10 Ml Vial IVPUSH 04/14/22 01:46 100 mg ONCE ONE Administration Protocol Labetalol HCl 20 mg 04/14/22 02:16 04/14/22 02:22 Labetalol Hcl 100 Mg/20 Ml Vial IVPUSH 04/14/22 02:17 20 mg ONCE ONE Administration Nitroglycerin 1 inch 04/14/22 02:12 04/14/22 02:19 Nitroglycerin 2 % Oint 1 Gm Packet TRANSDERMA 04/14/22 02:13 1 inch ONCE ONE Administration Ondansetron HCl 4 mg 04/14/22 02:24 04/14/22 02:28 Ondansetron Hcl 4 Mg/2 Ml Vial IVPUSH 04/14/22 02:25 4 mg ONCE ONE Administration Polyethylene Glycol 17 gm 04/14/22 04:37 04/14/22 05:47 Polyethylene Glycol 3350 17 Gm Powd.Pack PO 04/14/22 04:38 Not Given ONCE ONE Sevelamer Carbonate 800 mg 04/14/22 04:37 04/14/22 05:47 Sevelamer Carbonate Powder 800 Mg Powd.Pack PO 04/14/22 04:38 Not Given ONCE ONE MDM - SOB/Dyspnea MDM Narrative Medical decision making narrative: Patient with fluid overload with acute respiratory failure with end-stage renal disease on CPAP will admit for dialysis in a.m.. Case discussed with Dr. Lange and Dr. Bucio Differential Diagnosis Differential diagnosis: Likely congestive heart failure, pneumonia, asthma with exacerbation and pleural effusion Medical Records Attestation: I reviewed the patient's medical records. Lab Data Attestation: I reviewed the patient's lab results. Result diagrams: 04/14/22 01:47 04/14/22 01:47 Labs: Lab Results 04/14/22 04/14/22 04/14/22 Range/Units 01:47 01:47 01:47 WBC 11.5 H (4.8-10.8) X10*3/uL RBC 3.30 L (4.20-5.50) X10*6/uL Hgb 10.2 L (12.0-16.0) g/dl Hct 32.1 L (37.0-47.0) % MCV 97.3 (80.0-98.0) fL MCH 30.9 (27.0-33.0) pg MCHC 31.8 (31.0-35.0) g/dl RDW 15.0 (11.0-16.0) % Plt Count 308 D (160-400) X10*3/uL MPV 9.9 (9.4-12.3) fL Immature Gran % (Auto) 0.4 (0.0-0.4) % Neut % (Auto) 84.8 H (45-73) % Lymph % (Auto) 7.7 L (20-40) % [place] % (Auto) 5.4 (2-11) % Eos % (Auto) 1.3 (0-4) % Baso % (Auto) 0.4 (0-2) % Lymph # (Auto) 0.9 L (1.2-4.9) X10*3/uL [place] # (Auto) 0.6 (0.1-1.2) X10*3/uL Eos # (Auto) 0.2 (0.0-0.4) X10*3/uL Baso # (Auto) 0.1 (0.0-0.2) X10*3/uL Abs Immat Gran (auto) 0.05 H (0.00-0.03) X10*3/uL Absolute Neuts (auto) 9.7 H (2.0-8.3) x10*3/uL Absolute Nucleated RBC 0.000 (0.0-0.012) X10*3/uL Nucleated RBC % (auto) 0.0 (0.0-0.2) /100WBC VBG pH (7.32-7.43) VBG pCO2 mmHg VBG pO2 mmHg VBG HCO3 (22-26) mmol/L VBG O2 Saturation % VBG Base Excess mmol/L Sodium 133 L (135-145) mmol/L Potassium 5.1 D (3.3-5.1) mmol/L Chloride 94 L (96-108) mmol/L Carbon Dioxide 20 L (22-29) mmol/L Anion Gap 24 H (12-20) BUN 46 H (9-16) mg/dL Creatinine 6.09 H* (0.5-1.4) mg/dL Estim Creat Clear Calc 7.6 Estimated GFR 7 Random Glucose 235 H (60-115) mg/dL Lactic Acid (0.5-2.0) mmol/L Calcium 9.3 (8.4-10.2) mg/dL Total Bilirubin 0.6 (0.0-1.0) mg/dL AST 43 H (5-31) U/L ALT 21 (0-31) U/L Alkaline Phosphatase 167 H (39-117) U/L Troponin I High Sens 57.5 H* (<3.5-17.0) ng/L B-Natriuretic Peptide (<100) pg/mL Total Protein 8.2 H (6.5-8.0) g/dL Albumin 4.6 (3.5-5.0) g/dL COVID-19 (KRYSTINA) (Negative) COVID-19 Clin Com 04/14/22 04/14/22 04/14/22 Range/Units 01:47 01:47 01:47 WBC (4.8-10.8) X10*3/uL RBC (4.20-5.50) X10*6/uL Hgb (12.0-16.0) g/dl Hct (37.0-47.0) % MCV (80.0-98.0) fL MCH (27.0-33.0) pg MCHC (31.0-35.0) g/dl RDW (11.0-16.0) % Plt Count (160-400) X10*3/uL MPV (9.4-12.3) fL Immature Gran % (Auto) (0.0-0.4) % Neut % (Auto) (45-73) % Lymph % (Auto) (20-40) % [place] % (Auto) (2-11) % Eos % (Auto) (0-4) % Baso % (Auto) (0-2) % Lymph # (Auto) (1.2-4.9) X10*3/uL [place] # (Auto) (0.1-1.2) X10*3/uL Eos # (Auto) (0.0-0.4) X10*3/uL Baso # (Auto) (0.0-0.2) X10*3/uL Abs Immat Gran (auto) (0.00-0.03) X10*3/uL Absolute Neuts (auto) (2.0-8.3) x10*3/uL Absolute Nucleated RBC (0.0-0.012) X10*3/uL Nucleated RBC % (auto) (0.0-0.2) /100WBC VBG pH (7.32-7.43) VBG pCO2 mmHg VBG pO2 mmHg VBG HCO3 (22-26) mmol/L VBG O2 Saturation % VBG Base Excess mmol/L Sodium (135-145) mmol/L Potassium (3.3-5.1) mmol/L Chloride (96-108) mmol/L Carbon Dioxide (22-29) mmol/L Anion Gap (12-20) BUN (9-16) mg/dL Creatinine (0.5-1.4) mg/dL Estim Creat Clear Calc Estimated GFR Random Glucose (60-115) mg/dL Lactic Acid 0.6 (0.5-2.0) mmol/L Calcium (8.4-10.2) mg/dL Total Bilirubin (0.0-1.0) mg/dL AST (5-31) U/L ALT (0-31) U/L Alkaline Phosphatase (39-117) U/L Troponin I High Sens (<3.5-17.0) ng/L B-Natriuretic Peptide 3102 H (<100) pg/mL Total Protein (6.5-8.0) g/dL Albumin (3.5-5.0) g/dL COVID-19 (KRYSTINA) Negative (Negative) COVID-19 Clin Com See Note 04/14/22 Range/Units 01:53 WBC (4.8-10.8) X10*3/uL RBC (4.20-5.50) X10*6/uL Hgb (12.0-16.0) g/dl Hct (37.0-47.0) % MCV (80.0-98.0) fL MCH (27.0-33.0) pg MCHC (31.0-35.0) g/dl RDW (11.0-16.0) % Plt Count (160-400) X10*3/uL MPV (9.4-12.3) fL Immature Gran % (Auto) (0.0-0.4) % Neut % (Auto) (45-73) % Lymph % (Auto) (20-40) % [place] % (Auto) (2-11) % Eos % (Auto) (0-4) % Baso % (Auto) (0-2) % Lymph # (Auto) (1.2-4.9) X10*3/uL [place] # (Auto) (0.1-1.2) X10*3/uL Eos # (Auto) (0.0-0.4) X10*3/uL Baso # (Auto) (0.0-0.2) X10*3/uL Abs Immat Gran (auto) (0.00-0.03) X10*3/uL Absolute Neuts (auto) (2.0-8.3) x10*3/uL Absolute Nucleated RBC (0.0-0.012) X10*3/uL Nucleated RBC % (auto) (0.0-0.2) /100WBC VBG pH 7.30 L (7.32-7.43) VBG pCO2 50 mmHg VBG pO2 116 mmHg VBG HCO3 25 (22-26) mmol/L VBG O2 Saturation 99.0 % VBG Base Excess -1.3 mmol/L Sodium (135-145) mmol/L Potassium (3.3-5.1) mmol/L Chloride (96-108) mmol/L Carbon Dioxide (22-29) mmol/L Anion Gap (12-20) BUN (9-16) mg/dL Creatinine (0.5-1.4) mg/dL Estim Creat Clear Calc Estimated GFR Random Glucose (60-115) mg/dL Lactic Acid (0.5-2.0) mmol/L Calcium (8.4-10.2) mg/dL Total Bilirubin (0.0-1.0) mg/dL AST (5-31) U/L ALT (0-31) U/L Alkaline Phosphatase (39-117) U/L Troponin I High Sens (<3.5-17.0) ng/L B-Natriuretic Peptide (<100) pg/mL Total Protein (6.5-8.0) g/dL Albumin (3.5-5.0) g/dL COVID-19 (KRYSTINA) (Negative) COVID-19 Clin Com ECG Data Attestation: I personally reviewed and interpreted this ECG as follows: Interpretation: Normal sinus rhythm heart rate 81 beats per minute LVH with no acute ST changes no acute ischemia Critical Care Time Critical Care Time Critical Care Time: Yes Total Critical Care Time: 45 Attestation: The patient was critically ill with a high probability of imminent or life threatening deterioration. I spent greater than 50 minutes of discontinuous time evaluating the patient,delivering critical care at the bedside, discussing and evaluating pertinent data with consultants. Critical care time does not include time spent performing separately billable procedures or teaching. Total time spent performing critical care was 45 minutes. Discharge Plan Discharge Clinical Impression: Acute respiratory failure with hypoxia, Flash pulmonary edema, End stage renal disease on dialysis Patient Disposition: Admitted As Inpatient Interventions: Admission Worksheet (ED) Last Done: 04/14/22 06:21 Discharge Date/Time: 04/14/22 06:21
[2022-04-14 02:46] LABS: B Type Natriuretic Peptide 3102 pg/mL (<100)
[2022-04-14 02:51] LABS: Troponin-I High Sensitivity 57.5 ng/L (<3.5-17.0)
[2022-04-14 03:42] LABS: COVID-19 Test Negative (Negative)
--- NOTE | 2022-04-14 04:41 | P.HPCC_ITS ---
History of Present Illness Date of Service: 04/14/22 Attending physician on admission: Anamika Lind Chief Complaint: Shortness of breath 67-year-old female with end-stage renal disease and dialysis dependent who has got problems with compliance apparently missed her dialysis and came in pulmonary edema with acute hypoxemic respiratory failure currently still working hard but more stable on BiPAP Somewhat lethargic but she has a compensated blood gas metabolically does not seem to be bad it is just fluid overload but chest x-ray with a right-sided PermCath with clear-cut pulmonary edema no temperature taken on the vital signs in the emergency room and no indication that she produces any urine so there is no toxicology screen either and I say this only because she has got a background of opiate abuse and is currently on Suboxone She is acutely hypertensive on a chronic syndrome and my bedside echo shows concentric left ventricular hypertrophy without any ST-T changes and that is consistent with the EKG but nothing of an acute nature to imply ischemia with as a stable and trivial degree of troponin elevation and of course nonspecifically elevation of BNP as expected and she still he using significant diaphragmatic effort Review of Systems Review of Systems: Yes Unobtainable due to mental status [facility] Past Medical History Medical History (Updated 04/14/22 @ 04:48 by Anamika Lind MD) Abdominal pain Acute exacerbation of chronic obstructive airways disease Acute exacerbation of chronic obstructive pulmonary disease (COPD) Anasarca Anemia Anemia in chronic kidney disease Ascites Bilateral edema of lower extremity Congestive heart failure (CHF) Constipation Diabetes mellitus End stage renal disease on dialysis Essential hypertension Heart failure with preserved ejection fraction HTN (hypertension) Hypertrophic cardiomyopathy Non-compliance Family History Family History Other Hypertension Surgical History Surgical History No pertinent past surgical history Social History Social History Household Members: None Housing: Apartment Do you presently have visiting nurse or other home services: Yes Alcohol intake: never Patient Tobacco Use Status: Former Tobacco user Tobacco use type: Cigarette Cigarette Packs Per Day: 1 Cigarettes Per Day: 5 Years Smoked: 18 e-Cigarette/Vaping Use: Never Used Second Hand Smoke Exposure: No Substance Use Type: Heroin Advance Directives: Yes Advance Directives on File: Yes Advance Directives Date on File: 04/20/21 service: No Current occupational status: unemployed and disabled Meds Allergies Allergy/AdvReac Type Severity Reaction Status Date / Time No Known Allergies Allergy Mild NOT Verified 04/14/22 01:40 APPLICABLE Active Medications: Current Medications Albuterol/Ipratropium (Albuterol/Iprat 2.5/0.5mg 3 Ml Ampul.Neb) 3 ml INHALE RQ4H [facility] Buprenorphine/Naloxone (Buprenorphine/Naloxone 8/2 Mg Film) 1 film SUBLINGUAL ONCE ONE Stop: 04/14/22 04:38 Clonidine (Clonidine 0.2 Mg Patch.Tdwk) 0.2 mg TRANSDERMA ONCE ONE; Protocol Stop: 04/14/22 04:38 Dextrose (Dextrose 50 % 25 Gm/50 Ml Syringe) 25 gm IVPUSH Q15M PRN; Protocol PRN Reason: per Hypoglycemia Standing Ord. Famotidine (Famotidine/Pf 20 Mg/2 Ml Vial) 20 mg IVPUSH BID [facility] Glucose (Glucose Gel 15 Gm Gel..Gram.) 15 gm PO Q15M PRN; Protocol PRN Reason: per Hypoglycemia Standing Ord. Heparin Sodium (Porcine) (Heparin Sodium,Porcine 5,000 Unit/Ml Vial) 5,000 unit SUBCUT Q8H [facility] Insulin Human Lispro (Insulin Lispro 100 Unit/Ml 3 Ml Vial) 0 unit SUBCUT QID ACHS [facility]; Protocol Stop: 04/15/22 04:38 Polyethylene Glycol (Polyethylene Glycol 3350 17 Gm Powd.Pack) 17 gm PO ONCE ONE Stop: 04/14/22 04:38 Sevelamer Carbonate (Sevelamer Carbonate Powder 800 Mg Powd.Pack) 800 mg PO ONCE ONE Stop: 04/14/22 04:38 Home Medications Medication Instructions Recorded Confirmed Last Taken Type buprenorphine 8 mg-naloxone 2 mg 1 strip sublingual BID 10/22/20 04/14/22 10/12/21 History sublingual film (Suboxone) diltiazem HCl 180 mg 360 mg PO DAILY 10/22/20 04/14/22 10/12/21 History capsule,extended release 24 hr bumetanide 2 mg tablet 2 mg PO DAILY 04/15/21 04/14/22 10/12/21 History fluticasone propionate 110 1 puff inhalation BID 04/15/21 04/14/22 Unknown History mcg/actuation HFA aerosol inhaler (Flovent HFA) melatonin 5 mg tablet 5 mg PO BEDTIME PRN Sleep 04/15/21 03/09/22 Unknown History pantoprazole 40 mg tablet,delayed 40 mg PO DAILY 04/15/21 03/09/22 Unknown History release vitamin B comp no.3-folic acid 1 1 tab PO DAILY 04/15/21 03/09/22 Unknown History mg-vit C 60 mg-biotin 300 mcg tablet (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-[facility]) sennosides 8.6 mg tablet (senna) 1 - 2 tab PO BEDTIME PRN 05/11/21 03/09/22 Unknown History constipation acetaminophen 500 mg tablet 500 mg PO Q8H PRN Pain, Mild 06/10/21 04/14/22 Unknown History sevelamer carbonate 800 mg tablet 800 mg PO BIDWMEAL 06/10/21 03/09/22 10/12/21 History clonidine HCl 0.2 mg tablet 0.2 mg PO BID 07/27/21 04/14/22 10/12/21 History insulin aspart U-100 100 unit/mL 1 sliding scale dose subcut 07/27/21 04/14/22 10/12/21 History subcutaneous cartridge (Novolog USEASDIRECTD PenFill U-100 Insulin aspart) insulin glargine 100 unit/mL 7 unit subcut DAILY 09/18/21 04/14/22 10/12/21 History subcutaneous solution (Lantus U-100 Insulin) albuterol sulfate 2.5 mg/3 mL 3 ml inhalation TID PRN Shortness 10/11/21 04/14/22 Unknown History (0.083 %) solution for nebulization Of Breath aspirin 81 mg tablet,delayed 1 tab PO DAILY 10/11/21 04/14/22 10/12/21 History release albuterol sulfate 90 mcg/actuation 2 puff inhalation Q4-6H PRN 01/31/22 04/14/22 Unknown History aerosol inhaler (Ventolin HFA) wheezing nicotine 7 mg/24 hr daily 1 patch transdermal Q24H 01/31/22 03/09/22 Unknown History transdermal patch olanzapine 5 mg tablet 1 tab PO BEDTIME 01/31/22 03/09/22 Unknown History diclofenac sodium 1 % topical gel 2 g topical BID 03/09/22 04/14/22 Unknown History ondansetron 4 mg disintegrating 4 mg PO BID PRN nausea and vomiting 03/09/22 03/09/22 Unknown History tablet polyethylene glycol 3350 17 17 g PO DAILY PRN Constipation 03/09/22 03/09/22 Unknown History gram/dose oral powder (Miralax) Physical Exam Vital Signs: Vital Signs: Last Vital Signs Pulse 61 04/14/22 02:00 Resp 14 04/14/22 04:03 BP 211/85 H 04/14/22 01:40 Pulse Ox 97 04/14/22 02:00 O2 Del Method 04/14/22 02:00 BMI result Body Mass Index 30.0 Lethargic but the responsive she is awake oriented to person and place nonfocal neurologically Bedside echo with concentric LVH and of 50-55% ejection fraction but without segmental wall motion abnormality and clearly no primary valve or pericardial disease Chest by chest x-ray indicating pulmonary edema clearly using accessory muscles and significant expiratory diaphragmatic effort Abdomen soft no organomegaly Mild peripheral edema no skin breakdown Results Labs CBC and Chem 7: 04/14/22 01:47 04/14/22 01:47 Labs: Laboratory Results - last 24 hr 04/14/22 04/14/22 04/14/22 01:47 01:47 01:47 MCV 97.3 MCH 30.9 MCHC 31.8 RDW 15.0 Plt Count 308 D MPV 9.9 Immature Gran % (Auto) 0.4 Neut % (Auto) 84.8 H Lymph % (Auto) 7.7 L [place] % (Auto) 5.4 Eos % (Auto) 1.3 Baso % (Auto) 0.4 Lymph # (Auto) 0.9 L [place] # (Auto) 0.6 Eos # (Auto) 0.2 Baso # (Auto) 0.1 Abs Immat Gran (auto) 0.05 H Absolute Neuts (auto) 9.7 H Absolute Nucleated RBC 0.000 Nucleated RBC % (auto) 0.0 VBG pH VBG pCO2 VBG pO2 VBG HCO3 VBG O2 Saturation VBG Base Excess Anion Gap 24 H Estim Creat Clear Calc 7.6 Estimated GFR 7 Random Glucose 235 H Lactic Acid Calcium 9.3 Total Bilirubin 0.6 AST 43 H ALT 21 Alkaline Phosphatase 167 H Troponin I High Sens 57.5 H* B-Natriuretic Peptide Total Protein 8.2 H Albumin 4.6 COVID-19 ([facility]) COVID-19 Clin Com 04/14/22 04/14/22 04/14/22 01:47 01:47 01:47 MCV MCH MCHC RDW Plt Count MPV Immature Gran % (Auto) Neut % (Auto) Lymph % (Auto) [place] % (Auto) Eos % (Auto) Baso % (Auto) Lymph # (Auto) [place] # (Auto) Eos # (Auto) Baso # (Auto) Abs Immat Gran (auto) Absolute Neuts (auto) Absolute Nucleated RBC Nucleated RBC % (auto) VBG pH VBG pCO2 VBG pO2 VBG HCO3 VBG O2 Saturation VBG Base Excess Anion Gap Estim Creat Clear Calc Estimated GFR Random Glucose Lactic Acid 0.6 Calcium Total Bilirubin AST ALT Alkaline Phosphatase Troponin I High Sens B-Natriuretic Peptide 3102 H Total Protein Albumin COVID-19 ([facility]) Negative COVID-19 Clin [email or web address] See Note 04/14/22 01:53 MCV MCH MCHC RDW Plt Count MPV Immature Gran % (Auto) Neut % (Auto) Lymph % (Auto) [place] % (Auto) Eos % (Auto) Baso % (Auto) Lymph # (Auto) [place] # (Auto) Eos # (Auto) Baso # (Auto) Abs Immat Gran (auto) Absolute Neuts (auto) Absolute Nucleated RBC Nucleated RBC % (auto) VBG pH 7.30 L VBG pCO2 50 VBG pO2 116 VBG HCO3 25 VBG O2 Saturation 99.0 VBG Base Excess -1.3 Anion Gap Estim Creat Clear Calc Estimated GFR Random Glucose Lactic Acid Calcium Total Bilirubin AST ALT Alkaline Phosphatase Troponin I High Sens B-Natriuretic Peptide Total Protein Albumin COVID-19 ([facility]) COVID-19 Clin Com Imaging Radiologist's Impressions: Impressions Chest X-Ray 04/14/22 02:07 IMPRESSION: Central vascular prominence with bronchial wall thickening and interstitial prominence suggestive of mild edema. Assessment and Plan (1) Acute respiratory failure with hypoxia: Status: Acute (2) Nausea & vomiting: Status: Acute (3) End stage chronic kidney disease: Status: Acute (4) Diabetes mellitus: Status: Acute (5) End stage renal disease on dialysis: Status: Acute (6) NSTEMI (non-ST elevated myocardial infarction): Status: Acute (7) Flash pulmonary edema: Status: Acute (8) Asthma with exacerbation: Status: Acute (9) Congestive heart failure: Status: Acute (10) Ischemic colitis: Status: Acute (11) Acute GI bleeding: Status: Acute (12) Hyponatremia: Status: Acute (13) Anemia: Status: Acute (14) Opioid withdrawal: Status: Acute (15) Hypertrophic cardiomyopathy: Status: Acute Plan I will start a Catapres patch and maintain the BiPAP which is our current best mechanism for keeping the the chest clear and shortly dialysis with volume removal and clearly is a secondary plan if she fails between now and the time of dialysis we always have the option of intubating as a temporizing measure and placing on on assist control with positive-pressure
[2022-04-14 05:11] LABS: INTERNATIONAL NORM RATIO 0.9 (0.9-1.1); Prothrombin Time 10.6 SEC (10.0-13.1)
[2022-04-14 05:14] LABS: Partial Thromboplastin Time 32.9 SEC (26.0-36.4)
--- NOTE | 2022-04-14 05:39 | PC.NURSE ---
PER DR SMILEY PO MEDS (MIRALAX/RENVELA/SUBOXONE TO BE GIVEN AFTER DIALYSIS AND WHEN OFF BIPAP
--- NOTE | 2022-04-14 05:48 | PC.NURSE ---
RN-RN report given to ICU, per ICU nurse/MD hold PO meds until after dialysis.
[2022-04-14] MEDS: Heparin Sodium,Porcine 5,000 UNIT/ML VIAL 5000 UNIT SUBCUT ×3 (05:56→22:02)
[2022-04-14 06:02] LABS: Procalcitonin 0.87 ng/mL
--- NOTE | 2022-04-14 06:26 | PC.NURSE ---
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
[2022-04-14 07:15] LABS: Glucose, Whole Blood 244 mg/dL (60-115)
[2022-04-14 07:26] LABS: Glucose, Whole Blood 119 mg/dL (60-115)
--- NOTE | 2022-04-14 07:53 | P.CONNP_ITS ---
History of Present Illness Reason for Consult Consult date: 04/14/22 Reason for consult: dialysis Chief Complaint Chief complaint: Acute Pulmonary Edema Review of Systems Review of Systems Yes all other systems are reviewed and are negative and Unobtainable due to mental status PMFSH Past Medical History Medical History (Updated 04/14/22 @ 04:48 by Anamika Lind MD) Abdominal pain Acute exacerbation of chronic obstructive airways disease Acute exacerbation of chronic obstructive pulmonary disease (COPD) Anasarca Anemia Anemia in chronic kidney disease Ascites Bilateral edema of lower extremity Congestive heart failure (CHF) Constipation Diabetes mellitus End stage renal disease on dialysis Essential hypertension Heart failure with preserved ejection fraction HTN (hypertension) Hypertrophic cardiomyopathy Non-compliance Family History Family History Other Hypertension Surgical History Surgical History No pertinent past surgical history Social History Social History Household Members: Unknown / Unable to assess Housing: Apartment Do you presently have visiting nurse or other home services: Yes Unable to assess alcohol history related to: Unknown Alcohol intake: never Patient Tobacco Use Status: Former Tobacco user Tobacco use type: Cigarette Cigarette Packs Per Day: 1 Cigarettes Per Day: 5 Years Smoked: 18 e-Cigarette/Vaping Use: Never Used Second Hand Smoke Exposure: No Substance Use Type: Heroin Advance Directives Date on File: 04/20/21 service: No Current occupational status: unemployed and disabled Meds Allergies Allergy/AdvReac Type Severity Reaction Status Date / Time No Known Allergies Allergy Mild NOT Verified 04/14/22 01:40 APPLICABLE Active Medications: Current Medications Albuterol/Ipratropium (Albuterol/Iprat 2.5/0.5mg 3 Ml Ampul.Neb) 3 ml INHALE RQ4H [facility] Dextrose (Dextrose 50 % 25 Gm/50 Ml Syringe) 25 gm IVPUSH Q15M PRN; Protocol PRN Reason: per Hypoglycemia Standing Ord. Famotidine (Famotidine/Pf 20 Mg/2 Ml Vial) 20 mg IVPUSH BID [facility] Glucose (Glucose Gel 15 Gm Gel..Gram.) 15 gm PO Q15M PRN; Protocol PRN Reason: per Hypoglycemia Standing Ord. Heparin Sodium (Porcine) (Heparin Sodium,Porcine 5,000 Unit/Ml Vial) 5,000 unit SUBCUT Q8H [facility] Last Admin: 04/14/22 05:56 Dose: 5,000 unit Insulin Human Lispro (Insulin Lispro 100 Unit/Ml 3 Ml Vial) 0 unit SUBCUT QIDACHS [facility]; Protocol Stop: 04/15/22 04:38 Last Admin: 04/14/22 07:50 Dose: Not Given Home Medications Medication Instructions Recorded Confirmed Last Taken Type buprenorphine 8 mg-naloxone 2 mg 1 strip sublingual BID 10/22/20 04/14/22 10/12/21 History sublingual film (Suboxone) diltiazem HCl 180 mg 360 mg PO DAILY 10/22/20 04/14/22 10/12/21 History capsule,extended release 24 hr bumetanide 2 mg tablet 2 mg PO DAILY 04/15/21 04/14/22 10/12/21 History fluticasone propionate 110 1 puff inhalation BID 04/15/21 04/14/22 Unknown History mcg/actuation HFA aerosol inhaler (Flovent HFA) melatonin 5 mg tablet 5 mg PO BEDTIME PRN Sleep 04/15/21 04/14/22 Unknown History pantoprazole 40 mg tablet,delayed 40 mg PO DAILY 04/15/21 04/14/22 Unknown History release vitamin B comp no.3-folic acid 1 1 tab PO DAILY 04/15/21 04/14/22 Unknown History mg-vit C 60 mg-biotin 300 mcg tablet ([employer]) sennosides 8.6 mg tablet (senna) 1 - 2 tab PO BEDTIME PRN 05/11/21 04/14/22 Unknown History constipation acetaminophen 500 mg tablet 500 mg PO Q8H PRN Pain, Mild 06/10/21 04/14/22 Unknown History sevelamer carbonate 800 mg tablet 800 mg PO BIDWMEAL 06/10/21 04/14/22 10/12/21 History clonidine HCl 0.2 mg tablet 0.2 mg PO BID 07/27/21 04/14/22 10/12/21 History insulin aspart U-100 100 unit/mL 1 sliding scale dose subcut 07/27/21 04/14/22 10/12/21 History subcutaneous cartridge (Novolog USEASDIRECTD PenFill U-100 Insulin aspart) insulin glargine 100 unit/mL 7 unit subcut DAILY 09/18/21 04/14/22 10/12/21 History subcutaneous solution (Lantus U-100 Insulin) albuterol sulfate 2.5 mg/3 mL 3 ml inhalation TID PRN Shortness 10/11/21 04/14/22 Unknown History (0.083 %) solution for nebulization Of Breath aspirin 81 mg tablet,delayed 1 tab PO DAILY 10/11/21 04/14/22 10/12/21 History release albuterol sulfate 90 mcg/actuation 2 puff inhalation Q4-6H PRN 01/31/22 04/14/22 Unknown History aerosol inhaler (Ventolin HFA) wheezing nicotine 7 mg/24 hr daily 1 patch transdermal Q24H 01/31/22 04/14/22 Unknown History transdermal patch olanzapine 5 mg tablet 1 tab PO BEDTIME 01/31/22 04/14/22 Unknown History diclofenac sodium 1 % topical gel 2 g topical BID 03/09/22 04/14/22 Unknown Hist ory ondansetron 4 mg disintegrating 4 mg PO BID PRN nausea and vomiting 03/09/22 04/14/22 Unknown History tablet polyethylene glycol 3350 17 17 g PO DAILY PRN Constipation 03/09/22 04/14/22 Unknown History gram/dose oral powder (Miralax) Physical Exam Vital Signs: Last Vital Signs Temp 97.8 F 04/14/22 06:29 Pulse 56 04/14/22 07:00 Resp 11 L 04/14/22 07:00 BP 139/60 04/14/22 07:00 Pulse Ox 100 04/14/22 07:00 O2 Del Method 04/14/22 07:00 FiO2 40 04/14/22 07:00 Oxygen Flow Rate 40 04/14/22 07:23 BMI result Body Mass Index 28.7 Results Lab Results Result Diagrams: 04/14/22 01:47 04/14/22 01:47 Lab results: Chemistry 04/14/22 01:47 Sodium 133 L Potassium 5.1 D Carbon Dioxide 20 L BUN 46 H Creatinine 6.09 H* Calcium 9.3 Hematology 04/14/22 01:47 WBC 11.5 H Hgb 10.2 L Plt Count 308 D Assessment and Plan (1) Acute respiratory failure with hypoxia: Status: Acute fluid overload missed dialysis (2) Nausea & vomiting: Status: Acute (3) End stage chronic kidney disease: Status: Acute missed dialysis urgent dialysis early this am (4) Diabetes mellitus: Status: Acute (5) End stage renal disease on dialysis: Status: Acute (6) NSTEMI (non-ST elevated myocardial infarction): Status: Acute (7) Flash pulmonary edema: Status: Acute (8) Asthma with exacerbation: Status: Acute (9) Congestive heart failure: Status: Acute (10) Ischemic colitis: Status: Acute (11) Acute GI bleeding: Status: Acute (12) Hyponatremia: Status: Acute (13) Anemia: Status: Acute (14) Opioid withdrawal: Status: Acute (15) Hypertrophic cardiomyopathy: Status: Acute Plan 67-year-old female with end-stage renal disease and dialysis dependent who has got problems with compliance apparently missed her dialysis and came in pulmona ry edema with acute hypoxemic respiratory failure currently still working hard but more stable on BiPAP improved with fluid removal on dialysis Procedures Date of Service Date of Service: 04/14/22
--- NOTE | 2022-04-14 08:01 | PHA.MEDREC ---
Pharmacy Consult ? Medication Reconciliation Pharmacy has completed the medication reconciliation. Checked med rec done overnight
[2022-04-14] MEDS: Buprenorphine/Naloxone 8/2 mg FILM 1 FILM SUBLINGUAL ×2 (10:39→20:24)
[2022-04-14] MEDS: Famotidine/PF 20 MG/2 ML VIAL IVPUSH ×2 (10:39→19:44)
[2022-04-14] MEDS: polyethylene glycoL 3350 17 GM POWD.PACK PO (10:39)
[2022-04-14] MEDS: Sevelamer Carbonate Powder 800 MG POWD.PACK PO (10:40)
[2022-04-14] MEDS: cloNIDine 0.2 MG PATCH.TDWK TRANSDERMA (10:40)
[2022-04-14 11:34] LABS: Glucose, Whole Blood 108 mg/dL (60-115)
[2022-04-14] MEDS: Midazolam HCl/PF 2 MG/2 ML VIAL 1 MG IVPUSH (11:44)
--- NOTE | 2022-04-14 13:38 | MHC.CM.PN ---
Pt in ICU for fluid overload/missed HD and respiratory distress. Pt now on n/c although is able to speak, she defers d/c planning questions to her son, Ke with whom she resides, or her dtr Chelly. Call placed to Ke at number in EMR: no longer in service. Message left for Chelly to call back to confirm any services, HD location and transportation. Pt states PCP is Dr. Bermudez, IMM in chart, Covid vaccine x 4, HCP in chart. CM to follow for finalization of d/c needs.
[2022-04-14 16:00] LABS: Glucose, Whole Blood 105 mg/dL (60-115)
[2022-04-14] MEDS: Albuterol/Iprat 2.5/0.5MG 3 ML AMPUL.NEB INHALE ×3 (16:03→23:24)
[2022-04-14] MEDS: amLODIPine Besylate 10 MG TABLET PO (17:31)
--- NOTE | 2022-04-14 17:56 | PC.NURSE ---
Assumed care at 0700. Patient O2 sat >92% on Bipap 12/5 40%. Patient receiving dialysis. SBP sustaining 130s-140s. Dialysis completed, 5.1 L fluid removed. Bipap removed, patient 02 sat sustaining >88% on RA. SBP sustaining 150s-160s. Clonidine patch applied per MD. Patient c/o nausea. MD notified- no new orders. Patient vomiting 75 cc brown emesis, notified- PRN zofran ordered and administered. SBP sustaining 190s, notified- 10 mg amlodipine ordered and given. SBP continuing to sustain 200s, notified- no new orders at this time. Resource nurse notified. Resource nurse contacting [facility] director. IV hydralazine ordered and administered, home dose of PO hydralazine started. WCTM.
[2022-04-14] MEDS: hydrALAZINE HCl 20 MG/ML VIAL 10 MG IVPUSH (18:22)
[2022-04-14] MEDS: hydrALAZINE HCl 25 MG TABLET 75 MG PO (19:45)
[2022-04-14] MEDS: carvediloL 3.125 MG TABLET PO (19:47)
[2022-04-14 21:25] LABS: Glucose, Whole Blood 149 mg/dL (60-115)
[2022-04-14] MEDS: Prochlorperazine Edisylate 10 MG/2 ML VIAL 5 MG IVPUSH (22:52)
[2022-04-14] MEDS: oxyCODONE HCl Immed Release 5 MG TABLET PO (22:53)
[2022-04-15 00:08] VITALS: BP 184/74
[2022-04-15] MEDS: cloNIDine HCL 0.2 MG TABLET PO ×2 (00:20→10:55)
[2022-04-15 03:25] VITALS: BP 186/78; PULSE 84; RESP 20; TEMP 36.8; O2SAT 95
[2022-04-15] MEDS: diphenhydrAMINE HCL 50 MG/ML VIAL 25 MG IVPUSH (04:11)
[2022-04-15] MEDS: Heparin Sodium,Porcine 5,000 UNIT/ML VIAL 5000 UNIT SUBCUT (04:12)
[2022-04-15] MEDS: Acetaminophen 325 MG TABLET 650 MG PO (04:12)
--- NOTE | 2022-04-15 07:43 | W.PM.DNNEP ---
Subjective Subjective This patient was seen during dialysis. Physical Exam Vital Signs: Vital Signs: Last Vital Signs Temp 98.3 F 04/15/22 03:25 Pulse 84 04/15/22 03:25 Resp 20 04/15/22 03:25 BP 186/78 H 04/15/22 03:25 Pulse Ox 95 04/15/22 03:25 O2 Del Method 04/15/22 03:25 FiO2 40 04/14/22 07:00 Oxygen Flow Rate 40 04/14/22 07:23 BMI result Body Mass Index 28.7 Assessment & Plan Assessment and plan (1) Acute respiratory failure with hypoxia: Status: Acute Assessment and Plan: fluid overload missed dialysis (2) Nausea & vomiting: Status: Acute (3) End stage chronic kidney disease: Status: Acute Assessment and Plan: missed dialysis urgent dialysis yesterday today also to get back on schedule (4) Diabetes mellitus: Status: Acute (5) End stage renal disease on dialysis: Status: Acute (6) NSTEMI (non-ST elevated myocardial infarction): Status: Acute (7) Flash pulmonary edema: Status: Acute (8) Asthma with exacerbation: Status: Acute (9) Congestive heart failure: Status: Acute (10) Ischemic colitis: Status: Acute (11) Acute GI bleeding: Status: Acute (12) Hyponatremia: Status: Acute (13) Anemia: Status: Acute (14) Opioid withdrawal: Status: Acute (15) Hypertrophic cardiomyopathy: Status: Acute Plan 67-year-old female with end-stage renal disease and dialysis dependent who has got problems with compliance apparently missed her dialysis and came in pulmonary edema with acute hypoxemic respiratory failure currently still working hard but more stable on BiPAP improved with fluid removal on dialysis Time Spent With Patient Time: Total time spent is greater than 50% in coordination of care (as documented) at patient's floor/unit and/or counseling patient: Procedures Date of Service Date of Service: 04/15/22
[2022-04-15] MEDS: hydrALAZINE HCl 25 MG TABLET 75 MG PO (10:55)
[2022-04-15] MEDS: Famotidine/PF 20 MG/2 ML VIAL IVPUSH (10:56)
[2022-04-15] MEDS: Buprenorphine/Naloxone 8/2 mg FILM 1 FILM SUBLINGUAL (10:56)
--- NOTE | 2022-04-15 11:08 | P.DS_ITS ---
DS: Providers Provider Date of Service: 04/15/22 Date of admission: 04/14/22 04:29 Date of discharge: 04/15/22 Primary care physician: Unknown Physician DS: Diagnosis Discharge Diagnosis (1) Acute respiratory failure with hypoxia: Status: Acute (2) Nausea & vomiting: Status: Acute (3) End stage chronic kidney disease: Status: Acute (4) Diabetes mellitus: Status: Acute (5) End stage renal disease on dialysis: Status: Acute (6) NSTEMI (non-ST elevated myocardial infarction): Status: Acute (7) Flash pulmonary edema: Status: Acute (8) Asthma with exacerbation: Status: Acute (9) Congestive heart failure: Status: Acute (10) Ischemic colitis: Status: Acute (11) Acute GI bleeding: Status: Acute (12) Hyponatremia: Status: Acute (13) Anemia: Status: Acute (14) Opioid withdrawal: Status: Acute (15) Hypertrophic cardiomyopathy: Status: Acute DS: Summary Hospital Course Hospital Course: 67-year-old female with end-stage renal disease dialysis dependent presents with flash pulmonary edema secondary to missed dialysis appointment. She was ad mitted to ICU placed on rescue BiPAP and urgent dialysis was requested. After dialysis, she stated see her breathing is back to normal and she is adamant about being discharged. She is breathing fine on room air and believe she is medically appropriate for discharge Time Spent with Patient Time attestation: Total time spent providing and/or coordinating discharge services: Discharge coordination time: Greater than 30 minutes Quality: Safe Use of Opioids Does Pt have an Active Cancer Diagnosis on the Problem List?: No Quality: Stroke Does the patient have a stroke diagnosis?: No Physical Exam Vital Signs: Vital Signs: Last Vital Signs Temp 98.3 F 04/15/22 03:25 Pulse 84 04/15/22 03:25 Resp 20 04/15/22 03:25 BP 186/78 H 04/15/22 03:25 Pulse Ox 95 04/15/22 03:25 O2 Del Method 04/15/22 03:25 FiO2 40 04/14/22 07:00 Oxygen Flow Rate 40 04/14/22 07:23 BMI result Body Mass Index 28.7 Const: Other: No acute distress Resp: Other: Clear to auscultation bilaterally no rales rhonchi wheezes Cardio: Other: No S4; positive S1-S2; no S3 murmurs rubs or gallops GI: Other: Soft nontender nondistended with normoactive bowel sounds Extrem: Other: No edema bilaterally DS: Data Data Completed and Pending Completed studies during hospitalization [Text1]: Procedures Assistance with Respiratory Ventilation, Less than 24 Consecutive Hours, Continuous Positive Airway Pressure (01/30/22) Excision of Left Kidney, Percutaneous Approach, Diagnostic (02/25/21) Excision of Right Kidney, Percutaneous Approach, Diagnostic (10/22/20) Insertion of Endotracheal Airway into Trachea, Via Natural or Artificial Opening (10/12/21) Insertion of Infusion Device into Right Atrium, Percutaneous Approach (01/30/22) Insertion of Infusion Device into Superior Vena Cava, Percutaneous Approach (02/25/21) Insertion of Tunneled Vascular Access Device into Chest Subcutaneous Tissue and Fascia, Percutaneous Approach (10/12/21) Performance of Urinary Filtration, Intermittent, Less than 6 Hours Per Day (03/10/22) Respiratory Ventilation, 24-96 Consecutive Hours (10/12/21) Transfusion of Nonautologous Red Blood Cells into Peripheral Vein, Percutaneous Approach (02/25/21) Ultrasonography of Superior Vena Cava, Guidance (01/30/22) Labs on day of discharge: Laboratory Results - last 24 hr 04/14/22 04/14/22 04/14/22 11:32 15:56 21:07 POC Glucose 108 105 149 H Discharge Plan Discharge Anticipated Discharge Date/Time: 04/15/22 11:03 Patient Disposition: Home, Self-Care Discharge Diagnosis: Pulmonary Edema Referrals: Physician,Unknown J [Primary Care Provider] - 1 Week Discharge Medications: Continued buprenorphine-naloxone [Suboxone] 8-2 mg film 1 strip sublingual BID diltiazem HCl 180 mg capsule,extended release 24hr 360 mg PO DAILY acetaminophen 500 mg Tablet 500 mg PO Q8H PRN (Reason: Pain, Mild) sevelamer carbonate 800 mg tablet 800 mg PO BIDWMEAL clonidine HCl 0.2 mg tablet 0.2 mg PO BID insulin aspart U-100 [Novolog PenFill U-100 Insulin] 100 unit/mL Cartridge 1 sliding scale dose SUBCUT USEASDIRECTD Protocol: Insulin Correction Scale Less than or equal to 110 ---- Give (units): 0 111 to 150 Give (units): 0 151 to 200 Give (units): 4 201 to 250 Give (units): 6 251 to 300 Give (units): 8 301 to 350 Give (units): 10 Greater than 350 Give (units): 12 Call MD if Blood Glucose > : 350 docusate sodium [Colace] 100 mg capsule 100 mg PO BID PRN (Reason: Constipation) Qty: 30 0RF amlodipine 10 mg Tablet 10 mg PO BEDTIME Qty: 30 0RF Protocol: Hold for SBP< HOLD for SBP < : 90 Rx Instructions: replaces prior dose of 5 mg daily bumetanide 2 mg Tablet 2 mg PO DAILY pantoprazole 40 mg Tablet,Delayed Release (Dr/Ec) 40 mg PO DAILY melatonin 5 mg Tablet 5 mg PO BEDTIME PRN (Reason: Sleep) [employer] PIPE-[facility] Rx 1-60-300 mg-mg-mcg Tablet 1 tab PO DAILY fluticasone propionate [Flovent HFA] 110 mcg/actuation Hfa Aerosol Inhaler 1 puff INHALATION BID sennosides [senna] 8.6 mg tablet 1 - 2 tab PO BEDTIME PRN (Reason: constipation) insulin glargine [Lantus U-100 Insulin] 100 unit/mL solution 7 unit subcut DAILY isosorbide mononitrate 30 mg Tablet Extended Release 24 Hr 30 mg PO DAILY Qty: 30 0RF Protocol: Hold for SBP< HOLD for SBP < : 90 albuterol sulfate 2.5 mg /3 mL (0.083 %) solution for nebulization 3 ml inhalation TID PRN (Reason: Shortness Of Breath) aspirin 81 mg tablet,delayed release (DR/EC) 1 tab PO DAILY olanzapine 5 mg tablet 1 tab PO BEDTIME albuterol sulfate [Ventolin HFA] 90 mcg/actuation HFA aerosol inhaler 2 puff INHALATION Q4-6H PRN (Reason: wheezing) nicotine 7 mg/24 hr Patch 24 Hour 1 patch TRANSDERMAL Q24H diclofenac sodium 1 % gel 2 g topical BID polyethylene glycol 3350 [Miralax] 17 gram/dose powder 17 g PO DAILY PRN (Reason: Constipation) ondansetron 4 mg tablet,disintegrating 4 mg PO BID PRN (Reason: nausea and vomiting) hydralazine 50 mg tablet 1.5 tab PO TID Qty: 90 0RF Discharge Orders: Discharge Order (Routine); Ordered 04/15/22 Ordered By: Kalin Cabrera Diet: Advance to usual diet Activity on Discharge: As tolerated Stand Alone Forms: Patient Portal Discharge page Care Plan Goals: Resume all your meds as before he came to the hospital Health Concerns: Very important to keep dialysis appointments to prevent this from happening again Plan of Treatment: 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
[2022-04-15 11:30] LABS: Glucose, Whole Blood 178 mg/dL (60-115)
[2022-04-15] MEDS: Albuterol/Iprat 2.5/0.5MG 3 ML AMPUL.NEB INHALE (11:48)
[2022-04-15 11:50] VITALS: PULSE 74; RESP 20; O2SAT 94
--- NOTE | 2022-04-15 13:04 | MHC.CM.PN ---
PT TO DC HOME TODAY WITH NO SERVICES FAMILY TO TRANSPORT
== END 2022-04-15 13:34 | disposition home or self-care (01) | DRG 291 ==
LOC: HO.ED 03:09 → HO.ICU 04:41 → HO.S3 19:54
PROVIDERS: Internal Medicine; Admitting Provider Internal Medicine Cardiovascular Disease; Emergency Provider Internal Medicine; PCP Internal Medicine; Visit Provider Hospitalist
DX: I13.2 Hypertensive heart and chronic kidney disease with heart failure and with stage 5 chronic kidney disease, or end stage renal disease (principal); J96.01 Acute respiratory failure with hypoxia; N18.6 End stage renal disease; I50.1 Left ventricular failure, unspecified; E11.22 Type 2 diabetes mellitus with diabetic chronic kidney disease; I25.10 Atherosclerotic heart disease of native coronary artery without angina pectoris; I50.32 Chronic diastolic (congestive) heart failure; Z20.822 Contact with and (suspected) exposure to COVID-19; Z99.2 Dependence on renal dialysis; Z91.15 Patient's noncompliance with renal dialysis; Z87.891 Personal history of nicotine dependence; Z79.4 Long term (current) use of insulin; Z79.51 Long term (current) use of inhaled steroids; Z79.82 Long term (current) use of aspirin; Z79.899 Other long term (current) drug therapy
CPT/HCPCS: 36415; 71045; 80053; 82803; 82947; 83605; 83880; 84145; 84484; 85025; 85610; 85730; 87635; 90999; 93005; 94640; 94660; 99285; J1200; J1940; J2250; J2405

== ENCOUNTER 2022-04-24 03:19 | Inpatient (IN) | payer OTHER, SELFPAY ==
[2022-04-24] VITALS (7 sets, daily range): BP systolic 142–181; BP diastolic 59–102; PULSE 56–88; RESP 12–24; TEMP 36.7–37; O2SAT 92–99; BMI 29.2
--- NOTE | ~2022-04-24 | XR_ITS ---
EXAMINATION: XR CHEST CLINICAL INFORMATION: Dyspnea COMPARISON: 04/14/2022 TECHNIQUE: Frontal view of the chest was obtained. FINDINGS: Right IJ catheter tip lies in the region of the proximal right atrium. Lung volumes are symmetric. There is prominence of the central vasculature with surrounding interstitial opacification haziness, suspicious for mild edema. No evidence of pneumothorax. Small pleural effusions may be present. Cardiac silhouette remains enlarged. Calcification is present at the aortic arch. No acute osseous findings are seen. XR/XR chest 1V IMPRESSION: Prominent central vasculature and surrounding interstitial opacification, suspicious for mild edema. Cardiac silhouette remains enlarged.
--- NOTE | ~2022-04-24 | CT_ITS ---
EXAMINATION: CT ABDOMEN AND PELVIS WITH CONTRAST CLINICAL INFORMATION: Abdominal pain COMPARISON: Previous CT of the abdomen and pelvis most recent March 2022 TECHNIQUE: Multidetector volumetric images were obtained from the superior aspect of the liver through the pubic symphysis following administration 85 mL of Omnipaque 350 intravenous contrast. Sagittal and coronal reformatted images were obtained on the technologist's workstation. Oral contrast: Yes This CT examination was performed using dose optimization techniques as appropriate, variously including the following: *Automated exposure control *Adjustment of mA and/or kV according to patient size (this includes techniques or standardized protocols for targeted exams where dose is matched to indication/reason for exam; i.e. extremities or head) *Use of iterative reconstruction technique DLP: 381 mGy-cm FINDINGS: LUNG BASES: Atelectasis at the lung bases. The heart is enlarged. LIVER, GALLBLADDER, AND BILIARY TREE: The liver is normal in size, shape, and attenuation. No focal hepatic lesion or biliary ductal dilatation is present. The gallbladder has been removed. PANCREAS: Unremarkable. SPLEEN: Unremarkable. ADRENAL GLANDS: Unremarkable. KIDNEYS AND URETERS: The kidneys are normal in size, shape, and attenuation. Bilateral renal cysts, largest measuring 4 x 6 cm in the upper pole of the left kidney. No imaging follow-up. No hydronephrosis, hydroureter, or calculi seen. No perinephric stranding. BLADDER: Unremarkable. GASTROINTESTINAL TRACT: Constipation. Mild wall thickening of the distal colon, surrounding fat stranding and possible small amount of fluid or fat stranding in the presacral space. Findings are questionable for mild stercoral colitis related to chronic constipation. Small and large bowel is otherwise unremarkable. The appendix is normal. The stomach is normal. ABDOMINAL WALL: No significant hernia is appreciated. LYMPH NODES: Normal. 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 There is atherosclerotic disease. PELVIC VISCERA: There is low-attenuation seen centrally in the uterus suggestive of endometrial fluid or thickening. Endometrial thickness measures 1.2 cm. Uterus and adnexa are otherwise unremarkable. OSSEOUS STRUCTURES: Stable compression fracture of the right superior L3 vertebral body endplate. Mild degenerative changes of the spine. CT/CT abdomen pelvis w IV con IMPRESSION: Severe constipation. Question stercoral colitis of the distal colon and rectum. 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 This could be better evaluated with CTA. Low-attenuation centrally in the uterus suggestive and of endometrial fluid or thickening. Follow-up pelvic ultrasound recommended, particularly if there is history of vaginal bleeding. Stable L3 vertebral body compression fracture Fleischner guidelines were followed.
--- NOTE | 2022-04-24 03:25 | ECG_ITS ---
Test Reason : SOB Blood Pressure : / mmHG Vent. Rate : 078 BPM Atrial Rate : 078 BPM P-R Int : 170 ms QRS Dur : 092 ms QT Int : 384 ms P-R-T Axes : 037 -21 073 degrees QTc Int : 437 ms Normal sinus rhythm Left atrial enlargement Left ventricular hypertrophy with repolarization abnormality ( R in aVL , [place] product ) Abnormal ECG When compared with ECG of 14-APR-2022 02:13, No significant change was found Referred By: Generic ED Physician Electronically Signed By:CRISTIAN REMY MD
[2022-04-24 04:07] LABS: Basophils Percent Auto 0.3 % (0-2); Eosinophils Percent Auto 0.2 % (0-4); Hematocrit 26.7 % (37.0-47.0); Hemoglobin 8.7 g/dl (12.0-16.0); Imm Gran Abs Auto 0.02 X10*3/uL (0.00-0.03); Imm Gran Pct Auto 0.3 % (0.0-0.4); Lymphocytes Absolute Auto 0.4 X10*3/uL (1.2-4.9); Lymphocytes Percent Auto 7.1 % (20-40); MANUAL DIFF FLAG NO; Mean Corpuscular HGB Conc 32.6 g/dl (31.0-35.0); Mean Corpuscular Hemoglobin 30.1 pg (27.0-33.0); Mean Corpuscular Volume 92.4 fL (80.0-98.0); Mean Platelet Volume 9.3 fL (9.4-12.3); Monocytes Absolute Auto 0.5 X10*3/uL (0.1-1.2); Monocytes Percent Auto 9.2 % (2-11); Neutrophils Absolute Auto 4.9 x10*3/uL (2.0-8.3); Neutrophils Percent Auto 82.9 % (45-73); Platelet Count 261 X10*3/uL (160-400); Red Blood Count 2.89 X10*6/uL (4.20-5.50); Red Cell Distribution Width 14.7 % (11.0-16.0); White Blood Count 5.9 X10*3/uL (4.8-10.8)
[2022-04-24 04:28] LABS: Anion Gap 21 (12-20); Blood Urea Nitrogen 51 mg/dL (9-16); Calcium 9.2 mg/dL (8.4-10.2); Carbon Dioxide 29 mmol/L (22-29); Chloride 89 mmol/L (96-108); Creatinine Clr Calc Pharmacy 6.7; Estimated Glomerular Filt Rate 6; Glucose Random 149 mg/dL (60-115); Potassium 4.7 mmol/L (3.3-5.1); Sodium 134 mmol/L (135-145)
[2022-04-24 04:29] LABS: Troponin-I High Sensitivity 45.6 ng/L (<3.5-17.0)
[2022-04-24 04:45] LABS: B Type Natriuretic Peptide 8934 pg/mL (<100)
--- NOTE | 2022-04-24 04:47 | PC.NURSE ---
Pt presented to the ER with reports of dyspnea. EMS reported pt is supposed to be on oxygen at home but is not. Pt received a duoneb by EMS. Pt is also a regular dialysis pt who is supposed to be dialyzed Sunday morning. Pt is currently resting comfortably with O2 @ 2 LPM via NC, sats staying around 96%. Pt has been placed on a caridac monitor and IV line has been placed. Respiratory has seen the pt and we are continuing to monitor pt condition
--- NOTE | 2022-04-24 06:50 | ED.SOB ---
HPI - SOB/Dyspnea General Chief Complaint: Dyspnea Stated Complaint: sob Time Seen by Provider: 04/24/22 06:39 Source: patient, EMS, RN notes reviewed and old records reviewed Mode of arrival: EMS History of Present Illness HPI Narrative: 67 yo female with PMH of CRF on dialysis presents to the ED with EMS for shortness of breath. Patient gets dialysis MWF. 911 called this morning for increased SOB which started in the last 24 hours. Per EMS, patient is supposed to be on oxygen at home, but was not when she was picked up. Received duoneb and placed on oxygen and arrives to the ED with an O2 sat 99%. Patient is known to be noncompliant. MD elicited complaint: shortness of breath Related Data Home Medications Medication Instructions Recorded Confirmed buprenorphine 8 mg-naloxone 2 mg 1 strip sublingual BID 10/22/20 04/14/22 sublingual film (Suboxone) diltiazem HCl 180 mg 360 mg PO DAILY 10/22/20 04/14/22 capsule,extended release 24 hr bumetanide 2 mg tablet 2 mg PO DAILY 04/15/21 04/14/22 fluticasone propionate 110 1 puff inhalation BID 04/15/21 04/14/22 mcg/actuation HFA aerosol inhaler (Flovent HFA) melatonin 5 mg tablet 5 mg PO BEDTIME PRN Sleep 04/15/21 04/14/22 pantoprazole 40 mg tablet,delayed 40 mg PO DAILY 04/15/21 04/14/22 release vitamin B comp no.3-folic acid 1 1 tab PO DAILY 04/15/21 04/14/22 mg-vit C 60 mg-biotin 300 mcg tablet ([employer]IST-[facility] Rx) sennosides 8.6 mg tablet (senna) 1 - 2 tab PO BEDTIME PRN 05/11/21 04/14/22 constipation acetaminophen 500 mg tablet 500 mg PO Q8H PRN Pain, Mild 06/10/21 04/14/22 sevelamer carbonate 800 mg tablet 800 mg PO BIDWMEAL 06/10/21 04/14/22 clonidine HCl 0.2 mg tablet 0.2 mg PO BID 07/27/21 04/14/22 insulin aspart U-100 100 unit/mL 1 sliding scale dose subcut 07/27/21 04/14/22 subcutaneous cartridge (Novolog USEASDIRECTD PenFill U-100 Insulin aspart) insulin glargine 100 unit/mL 7 unit subcut DAILY 09/18/21 04/14/22 subcutaneous solution (Lantus U-100 Insulin) albuterol sulfate 2.5 mg/3 mL 3 ml inhalation TID PRN Shortness 10/11/21 04/14/22 (0.083 %) solution for nebulization Of Breath aspirin 81 mg tablet,delayed 1 tab PO DAILY 10/11/21 04/14/22 release albuterol sulfate 90 mcg/actuation 2 puff inhalation Q4-6H PRN 01/31/22 04/14/22 aerosol inhaler (Ventolin HFA) wheezing nicotine 7 mg/24 hr daily 1 patch transdermal Q24H 01/31/22 04/14/22 transdermal patch olanzapine 5 mg tablet 1 tab PO BEDTIME 01/31/22 04/14/22 diclofenac sodium 1 % topical gel 2 g topical BID 03/09/22 04/14/22 ondansetron 4 mg disintegrating 4 mg PO BID PRN nausea and vomiting 03/09/22 04/14/22 tablet polyethylene glycol 3350 17 17 g PO DAILY PRN Constipation 03/09/22 04/14/22 gram/dose oral powder (Miralax) Previous Rx's Medication Instructions Recorded amlodipine 10 mg tablet 10 mg PO BEDTIME #30 tabs 03/07/21 isosorbide mononitrate 30 mg 30 mg PO DAILY #30 tabs 09/20/21 tablet,extended release 24 hr docusate sodium 100 mg capsule 100 mg PO BID PRN Constipation #30 12/04/21 (Colace) caps hydralazine 50 mg tablet 1.5 tab PO TID #90 tabs 03/13/22 Allergies Allergy/AdvReac Type Severity Reaction Status Date / Time No Known Allergies Allergy Mild NOT Verified 04/14/22 01:40 APPLICABLE Review of Systems Review of Systems: LIMITED secondary to shortness of breath Constitutional: Constitutional: Denies chills and Denies fever(s) Eyes: Eyes: Reports no additional eye complaints ENT: Reports system reviewed and no additional complaints, except as documented Cardiovascular: Cardiovascular: Denies chest pain, Denies palpitations and Reports dyspnea Respiratory: Respiratory: Denies cough and Reports dyspnea Gastrointestinal: Gastrointestinal: Reports no additional gastrointestinal complaints Genitourinary: Genitourinary: Reports no additional female genitourinary complaints Neurologic: Denies Sensory deficit (Neuro) Endocrine: Endocrine: Denies palpitations PMFSH Past Medical History Medical History Abdominal pain Acute exacerbation of chronic obstructive airways disease Acute exacerbation of chronic obstructive pulmonary disease (COPD) Acute GI bleeding Anasarca Anemia Anemia in chronic kidney disease Ascites Bilateral edema of lower extremity Congestive heart failure (CHF) Constipation Diabetes mellitus End stage chronic kidney disease End stage renal disease on dialysis Essential hypertension Heart failure with preserved ejection fraction HTN (hypertension) Hypertrophic cardiomyopathy Hyponatremia Ischemic colitis Non-compliance Opioid withdrawal Surgical History No pertinent past surgical history Family History Family History Other Hypertension Social History Social History Household Members: Unknown / Unable to assess Housing: Apartment Do you presently have visiting nurse or other home services: Yes Unable to assess alcohol history related to: Unknown Alcohol intake: never Patient Tobacco Use Status: Former Tobacco user Tobacco use type: Cigarette Cigarette Packs Per Day: 1 Cigarettes Per Day: 5 Years Smoked: 18 Smoked in Last 30 Days: No e-Cigarette/Vaping Use: Never Used Second Hand Smoke Exposure: No Use of substances other than those prescribed or required for medical reasons: No Substance Use Type: Heroin Advance Directives: Yes Advance Directives on File: Yes Advance Directives Date on File: 04/20/21 service: No Current occupational status: unemployed and disabled Physical Exam Vital Signs: Vital Signs: Last Vital Signs Temp 98.2 F 04/24/22 05:44 Pulse 72 04/24/22 06:00 Resp 12 04/24/22 06:00 BP 142/81 H 04/24/22 06:00 Pulse Ox 96 04/24/22 06:00 O2 Del Method 04/24/22 06:00 O2 Flow Rate 2 04/24/22 06:00 BMI result Body Mass Index 29.2 Vitals reviewed. Mild HTN, O2 sat normal, but on oxygen Const: General: cooperative and acute distress (minimal, actually sleeping at the time of my initial evaluation) Nutritional Appearance: average body habitus Orientation/consciousness: patient oriented x3 HEENT: Head: Yes normocephalic and Yes atraumatic Ears: external ears normal General nose exam: Normal external nose present Face and sinus: Yes normal facial exam Eyes: Conjunctivae: conjunctivae normal Sclerae: sclerae normal Pupils: Equal, round and reactive pupils present Neck: Neck: Yes normal visual inspection and Yes full ROM Resp: Effort & Inspection: no cough and labored (mild) Auscultation: crackles Cardio: Rate: regular rate Rhythm: regular rhythm GI: Inspection: Yes normal to inspection Palpation (GI): nontender Skin: General skin exam: no rashes or lesions noted and no mottling Neuro: General: patient oriented x3 and CN's II-XI intact bilaterally Cranial nerves: Yes Equal, round and reactive pupils present Motor exam (neuro): 5/5 motor strength present throughout Sensory Exam: No Sensory deficit (Neuro) MDM - SOB/Dyspnea Medical Records Attestation: I reviewed the patient's medical records. Lab Data Attestation: I reviewed the patient's lab results. Lab results narrative: Notable abnormal labs include creatinine, hematocrit, troponin and BNP Result diagrams: 04/24/22 04:02 04/24/22 04:02 Labs: Lab Results 04/24/22 04/24/22 04/24/22 Range/Units 04:02 04:02 04:02 WBC 5.9 (4.8-10.8) X10*3/uL RBC 2.89 L (4.20-5.50) X10*6/uL Hgb 8.7 L (12.0-16.0) g/dl Hct 26.7 L (37.0-47.0) % MCV 92.4 (80.0-98.0) fL MCH 30.1 (27.0-33.0) pg MCHC 32.6 (31.0-35.0) g/dl RDW 14.7 (11.0-16.0) % Plt Count 261 (160-400) X10*3/uL MPV 9.3 L (9.4-12.3) fL Immature Gran % (Auto) 0.3 (0.0-0.4) % Neut % (Auto) 82.9 H (45-73) % Lymph % (Auto) 7.1 L (20-40) % [place] % (Auto) 9.2 (2-11) % Eos % (Auto) 0.2 (0-4) % Baso % (Auto) 0.3 (0-2) % Lymph # (Auto) 0.4 L (1.2-4.9) X10*3/uL [place] # (Auto) 0.5 (0.1-1.2) X10*3/uL Eos # (Auto) 0.0 (0.0-0.4) X10*3/uL Baso # (Auto) 0.0 (0.0-0.2) X10*3/uL Abs Immat Gran (auto) 0.02 (0.00-0.03) X10*3/uL Absolute Neuts (auto) 4.9 (2.0-8.3) x10*3/uL Absolute Nucleated RBC 0.000 (0.0-0.012) X10*3/uL Nucleated RBC % (auto) 0.0 (0.0-0.2) /100WBC Sodium 134 L (135-145) mmol/L Potassium 4.7 (3.3-5.1) mmol/L Chloride 89 L (96-108) mmol/L Carbon Dioxide 29 (22-29) mmol/L Anion Gap 21 H (12-20) BUN 51 H (9-16) mg/dL Creatinine 7.05 H* (0.5-1.4) mg/dL Estim Creat Clear Calc 6.7 Estimated GFR 6 Random Glucose 149 H (60-115) mg/dL Calcium 9.2 (8.4-10.2) mg/dL Troponin I High Sens 45.6 H (<3.5-17.0) ng/L B-Natriuretic Peptide (<100) pg/mL 04/24/22 Range/Units 04:02 WBC (4.8-10.8) X10*3/uL RBC (4.20-5.50) X10*6/uL Hgb (12.0-16.0) g/dl Hct (37.0-47.0) % MCV (80.0-98.0) fL MCH (27.0-33.0) pg MCHC (31.0-35.0) g/dl RDW (11.0-16.0) % Plt Count (160-400) X10*3/uL MPV (9.4-12.3) fL Immature Gran % (Auto) (0.0-0.4) % Neut % (Auto) (45-73) % Lymph % (Auto) (20-40) % [place] % (Auto) (2-11) % Eos % (Auto) (0-4) % Baso % (Auto) (0-2) % Lymph # (Auto) (1.2-4.9) X10*3/uL [place] # (Auto) (0.1-1.2) X10*3/uL Eos # (Auto) (0.0-0.4) X10*3/uL Baso # (Auto) (0.0-0.2) X10*3/uL Abs Immat Gran (auto) (0.00-0.03) X10*3/uL Absolute Neuts (auto) (2.0-8.3) x10*3/uL Absolute Nucleated RBC (0.0-0.012) X10*3/uL Nucleated RBC % (auto) (0.0-0.2) /100WBC Sodium (135-145) mmol/L Potassium (3.3-5.1) mmol/L Chloride (96-108) mmol/L Carbon Dioxide (22-29) mmol/L Anion Gap (12-20) BUN (9-16) mg/dL Creatinine (0.5-1.4) mg/dL Estim Creat Clear Calc Estimated GFR Random Glucose (60-115) mg/dL Calcium (8.4-10.2) mg/dL Troponin I High Sens (<3.5-17.0) ng/L B-Natriuretic Peptide 8934 H (<100) pg/mL Imaging Data Chest x-ray: Radiologist's impression: IMPRESSION: Prominent central vasculature and surrounding interstitial opacification, suspicious for mild edema. Cardiac silhouette remains enlarged ECG Data Attestation: I personally reviewed and interpreted this ECG as follows: ECG interpretation date: 04/24/22 ECG interpretation time: 06:30 Interpretation: NSR at 78, normal intervals, normal axis, normal QTc. Compared to 04/14/22, no interval change Discharge Plan Discharge Prescriptions: No Action buprenorphine-naloxone [Suboxone] 8-2 mg film 1 strip sublingual BID diltiazem HCl 180 mg capsule,extended release 24hr 360 mg PO DAILY acetaminophen 500 mg Tablet 500 mg PO Q8H PRN (Reason: Pain, Mild) sevelamer carbonate 800 mg tablet 800 mg PO BIDWMEAL clonidine HCl 0.2 mg tablet 0.2 mg PO BID insulin aspart U-100 [Novolog PenFill U-100 Insulin] 100 unit/mL Cartridge 1 sliding scale dose SUBCUT USEASDIRECTD Protocol: Insulin Correction Scale Less than or equal to 110 ---- Give (units): 0 111 to 150 Give (units): 0 151 to 200 Give (units): 4 201 to 250 Give (units): 6 251 to 300 Give (units): 8 301 to 350 Give (units): 10 Greater than 350 Give (units): 12 Call MD if Blood Glucose > : 350 docusate sodium [Colace] 100 mg capsule 100 mg PO BID PRN (Reason: Constipation) Qty: 30 0RF amlodipine 10 mg Tablet 10 mg PO BEDTIME Qty: 30 0RF Protocol: Hold for SBP< HOLD for SBP < : 90 Rx Instructions: replaces prior dose of 5 mg daily bumetanide 2 mg Tablet 2 mg PO DAILY pantoprazole 40 mg Tablet,Delayed Release (Dr/Ec) 40 mg PO DAILY melatonin 5 mg Tablet 5 mg PO BEDTIME PRN (Reason: Sleep) [employer]-[facility] Rx 1-60-300 mg-mg-mcg Tablet 1 tab PO DAILY fluticasone propionate [Flovent HFA] 110 mcg/actuation Hfa Aerosol Inhaler 1 puff INHALATION BID sennosides [senna] 8.6 mg tablet 1 - 2 tab PO BEDTIME PRN (Reason: constipation) insulin glargine [Lantus U-100 Insulin] 100 unit/mL solution 7 unit subcut DAILY isosorbide mononitrate 30 mg Tablet Extended Release 24 Hr 30 mg PO DAILY Qty: 30 0RF Protocol: Hold for SBP< HOLD for SBP < : 90 albuterol sulfate 2.5 mg /3 mL (0.083 %) solution for nebulization 3 ml inhalation TID PRN (Reason: Shortness Of Breath) aspirin 81 mg tablet,delayed release (DR/EC) 1 tab PO DAILY olanzapine 5 mg tablet 1 tab PO BEDTIME albuterol sulfate [Ventolin HFA] 90 mcg/actuation HFA aerosol inhaler 2 puff INHALATION Q4-6H PRN (Reason: wheezing) nicotine 7 mg/24 hr Patch 24 Hour 1 patch TRANSDERMAL Q24H diclofenac sodium 1 % gel 2 g topical BID polyethylene glycol 3350 [Miralax] 17 gram/dose powder 17 g PO DAILY PRN (Reason: Constipation) ondansetron 4 mg tablet,disintegrating 4 mg PO BID PRN (Reason: nausea and vomiting) hydralazine 50 mg tablet 1.5 tab PO TID Qty: 90 0RF
[2022-04-24 12:32] LABS: IDNOW Serial# BCCEAD1C
[2022-04-24 12:33] LABS: COVID-19 Test Positive (Negative)
--- NOTE | 2022-04-24 12:35 | PC.NURSE ---
Pt awake, reporting hunger and nausea.
[2022-04-24] MEDS: ondansetron HCL 4 MG/2 ML VIAL IVPUSH ×2 (13:17→19:40)
--- NOTE | 2022-04-24 14:44 | PM.IMHP ---
History of Present Illness Date of Service: 04/24/22 Attending physician on admission: Kunal Combs Chief Complaint: SOB 67-year-old Belarusian-speaking woman presenting to the ER with 3 days of worsening shortness of breath. She had missed dialysis today and was brought to the ER. She denies chest pain, fever, chills, nausea, vomiting, diarrhea, recent travel, sick contacts, recent illness. According to the ER provider she missed dialysis on Sunday, usual schedule is Sunday and Sunday, patient denies this reports that she did go. Incidentally patient was found to have COVID-19. Apparently per EMS patient was hypoxic around 87 however nothing documented. Patient remains 92% on 2 L nasal cannula. Her labs within acceptable limits, creatinine 7.05. BNP 8934. ER provider did talk to Nephrology, plan for dialysis tonight. She was given 1 dose of IV Decadron and she will be admitted for further management and treatment of acute COVID and end-stage renal disease requiring dialysis. Review of Systems Review of Systems: Denies any recent fever chills or decrease in appetite respiratory see HPI cardiovascular denies chest pain gastrointestinal denies any dysphagia abdominal pain nausea vomiting or diarrhea genitourinary denies any dysuria frequency or hematuria musculoskeletal denies any joint pain or swelling neuropsych denies any weakness or seizures all other systems reviewed are negative [facility] Medical History (Updated 04/24/22 @ 19:49 by Darwin Ruiz RN) Acute exacerbation of chronic obstructive pulmonary disease (COPD) Acute GI bleeding Anasarca Anemia in chronic kidney disease Ascites Constipation Diabetes mellitus End stage renal disease on dialysis Essential hypertension Heart failure with preserved ejection fraction Hypertrophic cardiomyopathy Ischemic colitis Opioid withdrawal Family History Other Hypertension Surgical History No pertinent past surgical history Social History Household Members: None Housing: House Do you presently have visiting nurse or other home services: Yes ([facility]) Unable to assess alcohol history related to: Unknown Alcohol intake: never Patient Tobacco Use Status: Current everyday Tobacco user Tobacco use type: Cigarette Cigarette Packs Per Day: 1 Cigarettes Per Day: 3 Years Smoked: 18 e-Cigarette/Vaping Use: Never Used Second Hand Smoke Exposure: No Substance Use Type: Heroin Advance Directives Date on File: 04/20/21 service: No Current occupational status: unemployed and disabled Meds Allergies Allergy/AdvReac Type Severity Reaction Status Date / Time No Known Allergies Allergy Mild NOT Verified 04/14/22 01:40 APPLICABLE Active Medications: Current Medications Sodium Chloride (0.9 % Sodium Chloride Flush 3 Ml Syringe) 3 ml IVFLUSH [facility] Home Medications Medication Instructions Recorded Confirmed Last Taken Type buprenorphine 8 mg-naloxone 2 mg 2 strip sublingual DAILY 10/22/20 04/24/22 10/12/21 History sublingual film (Suboxone) diltiazem HCl 180 mg 360 mg PO DAILY 10/22/20 04/24/22 10/12/21 History capsule,extended release 24 hr bumetanide 2 mg tablet 2 mg PO DAILY 04/15/21 04/24/22 10/12/21 History fluticasone propionate 110 1 puff inhalation BID 04/15/21 04/24/22 Unknown History mcg/actuation HFA aerosol inhaler (Flovent HFA) melatonin 5 mg tablet 5 mg PO BEDTIME PRN Sleep 04/15/21 04/24/22 Unknown History pantoprazole 40 mg tablet,delayed 40 mg PO DAILY 04/15/21 04/24/22 Unknown History release vitamin B comp no.3-folic acid 1 1 tab PO DAILY 04/15/21 04/24/22 Unknown History mg-vit C 60 mg-biotin 300 mcg tablet ([employer]) sennosides 8.6 mg tablet (senna) 1 - 2 tab PO BEDTIME PRN 05/11/21 04/24/22 Unknown History constipation acetaminophen 500 mg tablet 500 mg PO Q8H PRN Pain, Mild 06/10/21 04/24/22 Unknown History clonidine HCl 0.2 mg tablet 0.2 mg PO BID 07/27/21 04/24/22 10/12/21 History insulin aspart U-100 100 unit/mL 1 sliding scale dose subcut 07/27/21 04/24/22 10/12/21 History subcutaneous cartridge (Novolog USEASDIRECTD PenFill U-100 Insulin aspart) insulin glargine 100 unit/mL 7 unit subcut DAILY 09/18/21 04/24/22 10/12/21 History subcutaneous solution (Lantus U-100 Insulin) albuterol sulfate 2.5 mg/3 mL 3 ml inhalation TID PRN Shortness 10/11/21 04/24/22 Unknown History (0.083 %) solution for nebulization Of Breath aspirin 81 mg tablet,delayed 1 tab PO DAILY 10/11/21 04/24/22 10/12/21 History release albuterol sulfate 90 mcg/actuation 2 puff inhalation Q4-6H PRN 01/31/22 04/24/22 Unknown History aerosol inhaler (Ventolin HFA) wheezing diclofenac sodium 1 % topical gel 2 g topical BID 03/09/22 04/24/22 Unknown History ondansetron 4 mg disintegrating 4 mg PO BID PRN nausea and vomiting 03/09/22 04/24/22 Unknown History tablet polyethylene glycol 3350 17 17 g PO DAILY PRN Constipation 03/09/22 04/24/22 Unknown History gram/dose oral powder (Miralax) carvedilol 6.25 mg tablet 1 tab PO BID 04/24/22 04/24/22 Unknown History gabapentin 300 mg capsule 1 cap PO DAILY 04/24/22 04/24/22 Unknown History hydralazine 50 mg tablet 2 tab PO TID 04/24/22 04/24/22 Unknown History hydrocortisone 2.5 % topical cream 1 appl NE BID 04/24/22 04/24/22 Unknown History with perineal applicator tiotropium bromide 18 mcg capsule 1 cap inhalation DAILY 04/24/22 04/24/22 Unknown History with inhalation device (Spiriva with HandiHaler) Physical Exam Vital Signs and Narrative: Vital Signs: Last Vital Signs Temp 98.6 F 04/24/22 12:07 Pulse 56 04/24/22 12:07 Resp 12 04/24/22 12:07 BP 153/67 H 04/24/22 12:07 Pulse Ox 92 04/24/22 12:07 O2 Del Method 04/24/22 12:07 O2 Flow Rate 2 04/24/22 12:07 BMI result Body Mass Index 29.2 Appearing in no acute distress head is normocephalic atraumatic eyes pupils are PERRLA sclera is anicteric mouth throat mucous membranes are intact and moist neck is supple no lymphadenopathy, no JVD noted lung sounds rhonchi heart regular rate rhythm, clear S1, S2 positive bowel sounds, abdomen is soft, nontender neuro patient is alert x3, no focal deficits Results Labs CBC and Chem 7: 04/25/22 05:57 04/25/22 05:57 Labs: Laboratory Results - last 24 hr 04/24/22 04/24/22 04/24/22 04:02 04:02 04:02 MCV 92.4 MCH 30.1 MCHC 32.6 RDW 14.7 Plt Count 261 MPV 9.3 L Immature Gran % (Auto) 0.3 Neut % (Auto) 82.9 H Lymph % (Auto) 7.1 L [place] % (Auto) 9.2 Eos % (Auto) 0.2 Baso % (Auto) 0.3 Lymph # (Auto) 0.4 L [place] # (Auto) 0.5 Eos # (Auto) 0.0 Baso # (Auto) 0.0 Abs Immat Gran (auto) 0.02 Absolute Neuts (auto) 4.9 Absolute Nucleated RBC 0.000 Nucleated RBC % (auto) 0.0 Anion Gap 21 H Estim Creat Clear Calc 6.7 Estimated GFR 6 Random Glucose 149 H Calcium 9.2 Troponin I High Sens 45.6 H B-Natriuretic Peptide COVID-19 ([facility]) COVID-19 Clin Com 04/24/22 04/24/22 04:02 12:15 MCV MCH MCHC RDW Plt Count MPV Immature Gran % (Auto) Neut % (Auto) Lymph % (Auto) [place] % (Auto) Eos % (Auto) Baso % (Auto) Lymph # (Auto) [place] # (Auto) Eos # (Auto) Baso # (Auto) Abs Immat Gran (auto) Absolute Neuts (auto) Absolute Nucleated RBC Nucleated RBC % (auto) Anion Gap Estim Creat Clear Calc Estimated GFR Random Glucose Calcium Troponin I High Sens B-Natriuretic Peptide 8934 H COVID-19 ([facility]STINA) Positive A COVID-19 Clin Com See Note Imaging Radiologist's Impressions: Impressions Chest X-Ray 04/24/22 04:10 IMPRESSION: Prominent central vasculature and surrounding interstitial opacification, suspicious for mild edema. Cardiac silhouette remains enlarged. Assessment and Plan (1) Constipation: Status: Acute Plan 67 year old women admitted with hypoxia for the last 3 days secondary to COVID-19 and end-stage renal disease requiring dialysis COVID 19 hypoxia noted but may also be due to ESRD will start dexamethasone, if still symptomatic after consider remdesivir Supportive care Continue supplemental oxygen Hypoxia. Multifactorial possibly secondary to COVID-19 and end-stage renal disease Plan for dialysis today Starting steroids for COVID-19, will consider remdesivir ESRD on dialysis Dialysis Sunday and Sunday Anemia secondary to ESRD Stable Hypertension Stable blood pressure continue home medications Asthma Albuterol as needed Diabetes mellitus Sliding scale, ADA diet, Lantus GERD Continue PPI DVT prophylaxis with heparin Attending Dr. Calzada Full code Patient likely requires 2 inpatient midnights for treatment of hypoxia secondary to COVID-19 and end-stage renal disease also requiring dialysis Quality Stroke Does the patient have a stroke diagnosis?: No VTE Prior VTE?: No VTE Risk Level:: Medical - moderate - high VTE Device Contraindication: Treatment Not Indicated VTE Drug Contraindication: N/A - Med Ordered
[2022-04-24] MEDS: Nicotine 14 MG PATCH.TD24 TRANSDERMA (15:08)
[2022-04-24] MEDS: Heparin Sodium,Porcine 5,000 UNIT/ML VIAL 5000 UNIT SUBCUT (15:08)
--- NOTE | 2022-04-24 18:48 | PM.EVENT ---
Event Note Date of Service: 04/24/22 Event Note: This patient is seen and examined with APC earlier. Patient came to the hospital because of shortness of breath, hypoxia, she was due for dialysis but could not get it today so needs to get dialysis inpatient. In addition patient was found to have COVID positive. Denies any new complaint of chest pain or abdominal pain or fever or chills or nausea or vomiting or cough Lab imaging, EKG reviewed. No leukocytosis, hemoglobin 8.7, sodium 134, BUN 51 creatinine 7 ch evevated troponin , bnp elevated from baseline Physical exam and assessment and plan coordinated in APCs note, Agree with the plan in addition: 67-year-old female came with possible hypoxia/desaturation: She history of noncompliance to ESRD please see previous nephrology note from last month. Cannot get dialysis today outpatient , so hence admitted. Patient hypoxia possibly multifactorial-ESRD/COVID We will add dexamethasone, patient will need dialysis-if patient desaturation does not improve after dialysis may need id evaluation for COVID . Chronically elevated troponin, BNP is elevated from baseline patient denies any new cardiac symptoms.:? Patient BNP fluctuate from 2069-8058 range Please recheck tomorrow after dialysis. Further management accordingly-if does not improve after dialysis, will consider Cardiology eval since has hypertrophic cardiomyopathy and on multiple cardiac medications including diuretics.
[2022-04-24] MEDS: LORazepam 1 MG TABLET PO (19:40)
[2022-04-24 21:35] LABS: Glucose, Whole Blood 145 mg/dL (60-115)
[2022-04-24] MEDS: carvediloL 6.25 MG TABLET PO (22:55)
[2022-04-24] MEDS: hydrALAZINE HCl 50 MG TABLET 100 MG PO (22:56)
[2022-04-24] MEDS: amLODIPine Besylate 10 MG TABLET PO (22:56)
[2022-04-24] MEDS: cloNIDine HCL 0.2 MG TABLET PO (22:56)
[2022-04-24] MEDS: 0.9 % Sodium Chloride Flush 3 ML SYRINGE IVFLUSH (23:01)
[2022-04-25] VITALS (8 sets, daily range): BP systolic 129–196; BP diastolic 70–86; PULSE 54–89; RESP 18–20; TEMP 36.3–37.2; O2SAT 89–100; BMI 29.3
[2022-04-25] MEDS: Heparin Sodium,Porcine 5,000 UNIT/ML VIAL 5000 UNIT SUBCUT ×2 (03:27→17:32)
[2022-04-25] MEDS: Omeprazole 20 MG CAPSULE.DR PO (05:55)
[2022-04-25 06:26] LABS: Hematocrit 28.3 % (37.0-47.0); Mean Corpuscular HGB Conc 31.8 g/dl (31.0-35.0); Mean Corpuscular Hemoglobin 30.3 pg (27.0-33.0); Mean Corpuscular Volume 95.3 fL (80.0-98.0); Mean Platelet Volume 9.5 fL (9.4-12.3); Platelet Count 232 X10*3/uL (160-400); Red Blood Count 2.97 X10*6/uL (4.20-5.50); Red Cell Distribution Width 14.9 % (11.0-16.0); White Blood Count 4.9 X10*3/uL (4.8-10.8)
[2022-04-25 06:41] LABS: Anion Gap 17 (12-20); Blood Urea Nitrogen 30 mg/dL (9-16); Calcium 8.5 mg/dL (8.4-10.2); Carbon Dioxide 32 mmol/L (22-29); Chloride 97 mmol/L (96-108); Creatinine Clr Calc Pharmacy 8.8; Estimated Glomerular Filt Rate 8; Glucose Random 108 mg/dL (60-115); Potassium 5.5 mmol/L (3.3-5.1); Sodium 140 mmol/L (135-145)
[2022-04-25 06:43] LABS: B Type Natriuretic Peptide 4221 pg/mL (<100)
--- NOTE | 2022-04-25 09:24 | MHC.CM.PN ---
Patient is Covid (+) and neither she nor her family are available at listed phone numbers. From chart review only: Patient lives in an apartment with her Son and she receives a [facility] 9 hours/week and HD through [facility]. Home/resume said services appears to be the tentative goal and CM has initiated and will follow for dc planning. Patient has received Covid vax x4 and her PCP is Dr. Sammy Vicente.
--- NOTE | 2022-04-25 09:30 | MHC.CM.PN ---
Original IMM to be mailed to family via certified mail and a copy will be placed on the chart.
[2022-04-25] MEDS: Bumetanide 1 MG TABLET 2 MG PO (09:32)
[2022-04-25] MEDS: Gabapentin 300 MG CAPSULE PO (09:32)
[2022-04-25] MEDS: cloNIDine HCL 0.2 MG TABLET PO ×2 (09:33→20:20)
[2022-04-25] MEDS: Aspirin Enteric Coated 81 MG TABLET.DR PO (09:33)
[2022-04-25] MEDS: hydrALAZINE HCl 50 MG TABLET 100 MG PO ×3 (09:33→20:20)
[2022-04-25] MEDS: Isosorbide Mononitrate 30 MG TAB.ER.24H PO (09:34)
[2022-04-25] MEDS: dilTIAZem HCL CD 180 MG CAP.ER.24H 360 MG PO (09:34)
[2022-04-25] MEDS: carvediloL 6.25 MG TABLET PO ×2 (09:34→20:20)
[2022-04-25] MEDS: Buprenorphine/Naloxone 8/2 mg FILM 2 FILM SUBLINGUAL (09:35)
[2022-04-25] MEDS: Multivitamin TABLET 1 TAB PO (09:35)
[2022-04-25] MEDS: Nicotine 14 MG PATCH.TD24 TRANSDERMA (09:36)
[2022-04-25] MEDS: Sodium Zirconium Cyclosilicate 10 GM POWD.PACK PO (09:36)
[2022-04-25] MEDS: Insulin Glargine,Hum.rec.anlog 100 UNIT/ML 10 ML VIAL 7 UNIT SUBCUT (09:37)
[2022-04-25] MEDS: 0.9 % Sodium Chloride Flush 3 ML SYRINGE IVFLUSH ×3 (09:38→20:26)
[2022-04-25] MEDS: polyethylene glycoL 3350 17 GM POWD.PACK PO (10:14)
[2022-04-25] MEDS: Hydrocortisone 2.5 % Rectal Cr 30 GM TUBE 1 APPL PR ×2 (10:17→20:21)
[2022-04-25] MEDS: Fluticasone Propionate 100 MCG BLST.W.DEV 1 PUFF INHALE ×2 (10:17→19:59)
--- NOTE | 2022-04-25 11:03 | W.PM.DNNEP ---
Physical Exam Vital Signs: Vital Signs: Last Vital Signs Temp 98.1 F 04/25/22 07:56 Pulse 71 04/25/22 07:56 Resp 20 04/25/22 07:56 BP 171/75 H 04/25/22 07:56 Pulse Ox 96 04/25/22 07:56 O2 Del Method 04/25/22 07:56 O2 Flow Rate 4 04/25/22 07:56 BMI result Body Mass Index 29.3 Const: General: cooperative Eyes: Sclerae: sclerae normal Resp: Auscultation: crackles Cardio: Rhythm: regular rhythm GI: Palpation (GI): nontender Assessment & Plan Assessment and plan (1) Constipation: Status: Acute Plan COVID 19 ESRD on dialysis Dialysis Sunday and Sunday Anemia secondary to ESRD Epogen as needed Hypertension Stable blood pressure continue home medications Time Spent With Patient Time: Total time spent is greater than 50% in coordination of care (as documented) at patient's floor/unit and/or counseling patient: Procedures Date of Service Date of Service: 04/25/22
--- NOTE | 2022-04-25 13:50 | P.PNIM_ITS ---
Subjective Subjective Date of Service: 04/25/22 Interval History: uncontrolled htn, persistent nausea/vomiting better still with constipation Physical Exam Vital Signs: Vital Signs: Last Vital Signs Temp 98.9 F 04/25/22 11:33 Pulse 79 04/25/22 11:33 Resp 20 04/25/22 11:33 BP 152/80 H 04/25/22 13:13 Pulse Ox 94 04/25/22 11:33 O2 Del Method 04/25/22 11:33 O2 Flow Rate 2 04/25/22 11:33 BMI result Body Mass Index 29.3 Appearing in no acute distress lung sounds are clear to auscultation heart regular rate rhythm, clear S1, S2 positive bowel sounds, abdomen is soft, nontender neuro patient is alert x3, no focal deficits Objective Data Active Medications Acetaminophen (Acetaminophen 325 Mg Tablet) 650 mg PO Q6H PRN PRN Reason: Pain, Mild (Pain Scale 1-3) Acetaminophen (Acetaminophen 325 Mg Tablet) 325 mg PO Q8H PRN PRN Reason: Pain, Mild Albuterol Sulfate (Albuterol Sulfate (0.083%) 2.5 Mg/3 Ml Vial.Neb) 2.5 mg INHALE TID PRN PRN Reason: Shortness Of Breath Amlodipine Besylate (Amlodipine Besylate 10 Mg Tablet) 10 mg PO BEDTIME [facility]; Protocol Last Admin: 04/24/22 22:56 Dose: 10 mg Documented By: LETICIA Aspirin (Aspirin Enteric Coated 81 Mg Tablet.) 81 mg PO DAILY [facility] Last Admin: 04/25/22 09:33 Dose: 81 mg Documented By: BESSY Bumetanide (Bumetanide 1 Mg Tablet) 2 mg PO DAILY [facility]; Protocol Last Admin: 04/25/22 09:32 Dose: 2 mg Documented By: BESSY Buprenorphine/Naloxone (Buprenorphine/Naloxone 8/2 Mg Film) 2 film SUBLINGUAL DAILY [facility] Last Admin: 04/25/22 09:35 Dose: 2 film Documented By: BESSY Carvedilol (Carvedilol 6.25 Mg Tablet) 6.25 mg PO BID [facility]; Protocol Last Admin: 04/25/22 09:34 Dose: 6.25 mg Documented By: BESSY Clonidine HCl (Clonidine Hcl 0.2 Mg Tablet) 0.2 mg PO BID [facility]; Protocol Last Admin: 04/25/22 09:33 Dose: 0.2 mg Documented By: BESSY Diltiazem HCl (Diltiazem Hcl Cd 180 Mg Cap.Er.24h) 360 mg PO DAILY [facility]; Protocol Last Admin: 04/25/22 09:34 Dose: 360 mg Documented By: BESSY Docusate Sodium (Docusate Sodium 100 Mg Capsule) 100 mg PO BID PRN PRN Reason: Constipation Fluticasone Propionate (Fluticasone Propionate 100 Mcg Blst.W.Dev) 1 puff INHALE RBID [facility] Last Admin: 04/25/22 10:17 Dose: 1 puff Documented By: BESSY Gabapentin (Gabapentin 300 Mg Capsule) 300 mg PO DAILY [facility] Last Admin: 04/25/22 09:32 Dose: 300 mg Documented By: BESSY Heparin Sodium (Porcine) (Heparin Sodium,Porcine 5,000 Unit/Ml Vial) 5,000 unit SUBCUT Q12H [facility] Last Admin: 04/25/22 03:27 Dose: 5,000 unit Documented By: LETICIA Hydralazine HCl (Hydralazine Hcl 50 Mg Tablet) 100 mg PO TID [facility]; Protocol Last Admin: 04/25/22 09:33 Dose: 100 mg Documented By: BESSY Hydrocortisone (Hydrocortisone 2.5 % Rectal Cr 30 Gm Tube) 1 appl TN BID [facility] Last Admin: 04/25/22 10:17 Dose: 1 appl Documented By: BESSY Insulin Glargine (Insulin Glargine,Hum.Rec.Anlog 100 Unit/Ml 10 Ml Vial) 7 unit SUBCUT DAILY [facility] Last Admin: 04/25/22 09:37 Dose: 7 unit Documented By: BESSY Isosorbide Mononitrate (Isosorbide Mononitrate 30 Mg Tab.Er.24h) 30 mg PO DAILY [facility]; Protocol Last Admin: 04/25/22 09:34 Dose: 30 mg Documented By: BESSY Melatonin (Melatonin 3 Mg Tablet) 6 mg PO BEDTIME PRN PRN Reason: Sleep Multivitamins/Vitamin C (Multivitamin Tablet) 1 tab PO DAILY [facility] Last Admin: 04/25/22 09:35 Dose: 1 tab Documented By: BESSY Nicotine (Nicotine 14 Mg Patch.Td24) 14 mg TRANSDERMA DAILY [facility] Last Admin: 04/25/22 09:36 Dose: 14 mg Documented By: BESSY Omeprazole (Omeprazole 20 Mg Capsule.) 20 mg PO DAILY@0630 [facility] Last Admin: 04/25/22 05:55 Dose: 20 mg Documented By: PEDRO Ondansetron HCl (Ondansetron Hcl 4 Mg/2 Ml Vial) 4 mg IVPUSH Q8H PRN PRN Reason: Nausea and Vomiting Last Admin: 04/24/22 19:40 Dose: 4 mg Documented By: FRANNIE Pharmacy Consult (Consult Rx Perform Med Rec) 1 each MISCELLANE ONCE PRN PRN Reason: Consult order Polyethylene Glycol (Polyethylene Glycol 3350 17 Gm Powd.Pack) 17 gm PO DAILY PRN PRN Reason: Constipation Last Admin: 04/25/22 10:14 Dose: 17 gm Documented By: BESSY Sodium Chloride (0.9 % Sodium Chloride Flush 3 Ml Syringe) 3 ml IVFLUSH QSHIFT [facility] Last Admin: 04/25/22 09:38 Dose: 3 ml Documented By: BESSY Labs CBC & Chem 7: 04/25/22 05:57 04/25/22 05:57 Labs: Laboratory Results - last 24 hr 04/24/22 04/25/22 04/25/22 21:27 05:57 05:57 MCV 95.3 MCH 30.3 MCHC 31.8 RDW 14.9 Plt Count 232 MPV 9.5 Absolute Nucleated RBC 0.000 Nucleated RBC % (auto) 0.0 Anion Gap Estim Creat Clear Calc Estimated GFR POC Glucose 145 H Random Glucose Calcium B-Natriuretic Peptide 4221 H 04/25/22 05:57 MCV MCH MCHC RDW Plt Count MPV Absolute Nucleated RBC Nucleated RBC % (auto) Anion Gap 17 Estim Creat Clear Calc 8.8 Estimated GFR 8 POC Glucose Random Glucose 108 Calcium 8.5 D B-Natriuretic Peptide Assessment and Plan (1) Dyspnea: Status: Acute Plan 67 year old women admitted with hypoxia for the last 3 days secondary to COVID- 19 and end-stage renal disease requiring dialysis COVID 19 hypoxia secondary to ESRD continue dexamethasone Supportive care Continue supplemental oxygen Hypoxia.? Multifactorial possibly secondary to COVID-19 and end-stage renal disease much better today after dialysis yesterday Starting steroids for COVID-19, no need for remdesivir Nausea and vomiting resolved Able to eat feeling constipated try fleets enema ESRD on dialysis Dialysis Sunday and Sunday Anemia secondary to ESRD Stable Hypertension Stable blood pressure continue home medications Asthma Albuterol as needed Diabetes mellitus Sliding scale, ADA diet, Lantus GERD Continue PPI DVT prophylaxis with heparin Attending Dr. Sykes Full code Patient likely requires 2 inpatient midnights for treatment of hypoxia secondary to COVID-19 and end-stage renal disease also requiring dialysis Quality Stroke Does the patient have a stroke diagnosis?: No VTE Prior VTE?: No VTE Risk Level:: Medical - moderate - high VTE Device Contraindication: Treatment Not Indicated VTE Drug Contraindication: N/A - Med Ordered
[2022-04-25] MEDS: ondansetron HCL 4 MG/2 ML VIAL IVPUSH (17:30)
[2022-04-25] MEDS: Melatonin 3 MG TABLET 6 MG PO (20:20)
[2022-04-25] MEDS: Acetaminophen 325 MG TABLET 650 MG PO (20:20)
[2022-04-25] MEDS: amLODIPine Besylate 10 MG TABLET PO (20:20)
[2022-04-25 20:26] LABS: Glucose, Whole Blood 141 mg/dL (60-115)
[2022-04-26] VITALS (7 sets, daily range): BP systolic 137–179; BP diastolic 60–87; PULSE 48–58; RESP 12–18; TEMP 36.3–36.9; O2SAT 93–98
[2022-04-26] MEDS: Acetaminophen 325 MG TABLET 650 MG PO (03:35)
[2022-04-26] MEDS: Heparin Sodium,Porcine 5,000 UNIT/ML VIAL 5000 UNIT SUBCUT ×2 (03:35→15:00)
[2022-04-26] MEDS: Omeprazole 20 MG CAPSULE.DR PO (06:04)
[2022-04-26 06:14] LABS: Anion Gap 16 (12-20); Blood Urea Nitrogen 17 mg/dL (9-16); Calcium 9.3 mg/dL (8.4-10.2); Carbon Dioxide 28 mmol/L (22-29); Chloride 96 mmol/L (96-108); Creatinine Clr Calc Pharmacy 12.2; Estimated Glomerular Filt Rate 11; Glucose Random 126 mg/dL (60-115); Potassium 4.5 mmol/L (3.3-5.1); Sodium 135 mmol/L (135-145)
[2022-04-26] MEDS: Mineral OiL enema 133 ML ENEMA PR (06:31)
[2022-04-26 07:53] LABS: Glucose, Whole Blood 115 mg/dL (60-115)
[2022-04-26] MEDS: 0.9 % Sodium Chloride Flush 3 ML SYRINGE IVFLUSH ×3 (08:14→21:38)
[2022-04-26] MEDS: Isosorbide Mononitrate 30 MG TAB.ER.24H PO (08:16)
[2022-04-26] MEDS: cloNIDine HCL 0.2 MG TABLET PO ×2 (08:16→21:37)
[2022-04-26] MEDS: carvediloL 6.25 MG TABLET PO ×2 (08:16→21:37)
[2022-04-26] MEDS: Nicotine 14 MG PATCH.TD24 TRANSDERMA (08:17)
[2022-04-26] MEDS: hydrALAZINE HCl 50 MG TABLET 100 MG PO ×3 (08:17→21:37)
[2022-04-26] MEDS: Multivitamin TABLET 1 TAB PO (08:17)
[2022-04-26] MEDS: Aspirin Enteric Coated 81 MG TABLET.DR PO (08:17)
[2022-04-26] MEDS: Bumetanide 1 MG TABLET 2 MG PO (08:17)
[2022-04-26] MEDS: Buprenorphine/Naloxone 8/2 mg FILM 2 FILM SUBLINGUAL (08:17)
[2022-04-26] MEDS: Gabapentin 300 MG CAPSULE PO (08:17)
[2022-04-26] MEDS: dilTIAZem HCL CD 180 MG CAP.ER.24H 360 MG PO (08:17)
[2022-04-26] MEDS: Insulin Glargine,Hum.rec.anlog 100 UNIT/ML 10 ML VIAL 7 UNIT SUBCUT (08:18)
[2022-04-26] MEDS: Fluticasone Propionate 100 MCG BLST.W.DEV 1 PUFF INHALE ×2 (08:26→20:08)
[2022-04-26] MEDS: Hydrocortisone 2.5 % Rectal Cr 30 GM TUBE 1 APPL PR ×2 (08:26→21:37)
[2022-04-26] MEDS: ondansetron HCL 4 MG/2 ML VIAL IVPUSH (10:04)
--- NOTE | 2022-04-26 10:58 | PM.PNNEP ---
Subjective Subjective Date of Service: 04/27/22 Interval history: uncontrolled htn, persistent nausea/vomiting better still with constipation Physical Exam Vital Signs: Vital Signs: Last Vital Signs Temp 97.9 F 04/26/22 07:40 Pulse 58 04/26/22 07:40 Resp 12 04/26/22 07:40 BP 179/87 H 04/26/22 07:40 Pulse Ox 96 04/26/22 07:40 O2 Del Method 04/26/22 07:40 O2 Flow Rate 2 04/26/22 07:40 BMI result Body Mass Index 29.3 Const: General: cooperative Eyes: Sclerae: sclerae normal Resp: Auscultation: crackles Cardio: Rhythm: regular rhythm GI: Palpation (GI): nontender Objective Data Labs CBC & Chem 7: 04/25/22 05:57 04/26/22 05:44 Labs: Laboratory Results - last 24 hr 04/25/22 04/26/22 04/26/22 20:22 05:44 07:39 Sodium 135 Potassium 4.5 Chloride 96 Carbon Dioxide 28 Anion Gap 16 BUN 17 H Creatinine 3.91 H Estim Creat Clear Calc 12.2 Estimated GFR 11 POC Glucose 141 H 115 Random Glucose 126 H Calcium 9.3 D Procedures Date of Service Date of Service: 04/26/22 Assessment & Plan Assessment and plan (1) Constipation: Status: Acute Plan COVID 19 ESRD on dialysis Dialysis Sunday and Sunday Anemia secondary to ESRD Epogen as needed Hypertension Stable blood pressure continue home medications Time Spent With Patient Time: Total time spent is greater than 50% in coordination of care (as documented) at patient's floor/unit and/or counseling patient: Progress Note: Quality Stroke Does the patient have a stroke diagnosis?: No
--- NOTE | 2022-04-26 11:30 | MHC.CM.PN ---
DP Home with resumption of [facility] [employer] [facility] and HD @ [facility]. Patient may need assist with transportation. No DC today per MD rounds. The patient is not feeling well; because he is Nauseous.
[2022-04-26 11:41] LABS: Glucose, Whole Blood 142 mg/dL (60-115)
--- NOTE | 2022-04-26 12:16 | HO.PM.IMPN ---
Subjective Subjective Date of Service: 04/26/22 Interval History: uncontrolled htn, persistent nausea/vomiting better still with constipation Physical Exam Vital Signs: Vital Signs: Last Vital Signs Temp 98.1 F 04/26/22 11:44 Pulse 52 04/26/22 11:44 Resp 14 04/26/22 11:44 BP 153/67 H 04/26/22 11:44 Pulse Ox 93 04/26/22 11:44 O2 Del Method 04/26/22 11:44 O2 Flow Rate 2 04/26/22 11:44 BMI result Body Mass Index 29.3 Appearing in no acute distress lung sounds are clear to auscultation heart regular rate rhythm, clear S1, S2 positive bowel sounds, abdomen is soft, nontender neuro patient is alert x3, no focal deficits Objective Data Active Medications Acetaminophen (Acetaminophen 325 Mg Tablet) 650 mg PO Q6H PRN PRN Reason: Pain, Mild (Pain Scale 1-3) Last Admin: 04/26/22 03:35 Dose: 650 mg Documented By: YESSENIA Acetaminophen (Acetaminophen 325 Mg Tablet) 325 mg PO Q8H PRN PRN Reason: Pain, Mild Albuterol Sulfate (Albuterol Sulfate (0.083%) 2.5 Mg/3 Ml Vial.Neb) 2.5 mg INHALE TID PRN PRN Reason: Shortness Of Breath Amlodipine Besylate (Amlodipine Besylate 10 Mg Tablet) 10 mg PO BEDTIME [facility]; Protocol Last Admin: 04/25/22 20:20 Dose: 10 mg Documented By: YESSENIA Aspirin (Aspirin Enteric Coated 81 Mg Tablet.) 81 mg PO DAILY [facility] Last Admin: 04/26/22 08:17 Dose: 81 mg Documented By: RASHIDA Bumetanide (Bumetanide 1 Mg Tablet) 2 mg PO DAILY [facility]; Protocol Last Admin: 04/26/22 08:17 Dose: 2 mg Documented By: RASHIDA Buprenorphine/Naloxone (Buprenorphine/Naloxone 8/2 Mg Film) 2 film SUBLINGUAL DAILY [facility] Last Admin: 04/26/22 08:17 Dose: 2 film Documented By: RASHIDA Carvedilol (Carvedilol 6.25 Mg Tablet) 6.25 mg PO BID [facility]; Protocol Last Admin: 04/26/22 08:16 Dose: 6.25 mg Documented By: RASHIDA Clonidine HCl (Clonidine Hcl 0.2 Mg Tablet) 0.2 mg PO BID [facility]; Protocol Last Admin: 04/26/22 08:16 Dose: 0.2 mg Documented By: RASHIDA Diltiazem HCl (Diltiazem Hcl Cd 180 Mg Cap.Er.24h) 360 mg PO DAILY [facility]; Protocol Last Admin: 04/26/22 08:17 Dose: 360 mg Documented By: RASHIDA Docusate Sodium (Docusate Sodium 100 Mg Capsule) 100 mg PO BID PRN PRN Reason: Constipation Fluticasone Propionate (Fluticasone Propionate 100 Mcg Blst.W.Dev) 1 puff INHALE RBID [facility] Last Admin: 04/26/22 08:26 Dose: 1 puff Documented By: RASHIDA Gabapentin (Gabapentin 300 Mg Capsule) 300 mg PO DAILY [facility] Last Admin: 04/26/22 08:17 Dose: 300 mg Documented By: RASHIDA Heparin Sodium (Porcine) (Heparin Sodium,Porcine 5,000 Unit/Ml Vial) 5,000 unit SUBCUT Q12H [facility] Last Admin: 04/26/22 03:35 Dose: 5,000 unit Documented By: YESSENIA Hydralazine HCl (Hydralazine Hcl 50 Mg Tablet) 100 mg PO TID [facility]; Protocol Last Admin: 04/26/22 08:17 Dose: 100 mg Documented By: RASHIDA Hydrocortisone (Hydrocortisone 2.5 % Rectal Cr 30 Gm Tube) 1 appl CA BID [facility] Last Admin: 04/26/22 08:26 Dose: 1 appl Documented By: RASHIDA Insulin Glargine (Insulin Glargine,Hum.Rec.Anlog 100 Unit/Ml 10 Ml Vial) 7 unit SUBCUT DAILY [facility] Last Admin: 04/26/22 08:18 Dose: 7 unit Documented By: RASHIDA Isosorbide Mononitrate (Isosorbide Mononitrate 30 Mg Tab.Er.24h) 30 mg PO DAILY [facility]; Protocol Last Admin: 04/26/22 08:16 Dose: 30 mg Documented By: RASHIDA Lactulose (Lactulose 20 Gm/30 Ml Solution) 20 gm PO ONCE ONE Stop: 04/26/22 12:16 Melatonin (Melatonin 3 Mg Tablet) 6 mg PO BEDTIME PRN PRN Reason: Sleep Last Admin: 04/25/22 20:20 Dose: 6 mg Documented By: YESSENIA Multivitamins/Vitamin C (Multivitamin Tablet) 1 tab PO DAILY [facility] Last Admin: 04/26/22 08:17 Dose: 1 tab Documented By: RASHIDA Nicotine (Nicotine 14 Mg Patch.Td24) 14 mg TRANSDERMA DAILY [facility] Last Admin: 04/26/22 08:17 Dose: 14 mg Documented By: RASHIDA Omeprazole (Omeprazole 20 Mg Capsule.Dr) 20 mg PO DAILY@0630 [facility] Last Admin: 04/26/22 06:04 Dose: 20 mg Documented By: YESSENIA Ondansetron HCl (Ondansetron Hcl 4 Mg/2 Ml Vial) 4 mg IVPUSH Q8H PRN PRN Reason: Nausea and Vomiting Last Admin: 04/26/22 10:04 Dose: 4 mg Documented By: RASHIDA Pharmacy Consult (Consult Rx Perform Med Rec) 1 each MISCELLANE ONCE PRN PRN Reason: Consult order Polyethylene Glycol (Polyethylene Glycol 3350 17 Gm Powd.Pack) 17 gm PO DAILY PRN PRN Reason: Constipation Last Admin: 04/25/22 10:14 Dose: 17 gm Documented By: BESSY Sodium Chloride (0.9 % Sodium Chloride Flush 3 Ml Syringe) 3 ml IVFLUSH QSHIFT [facility] Last Admin: 04/26/22 08:14 Dose: 3 ml Documented By: RASHIDA Labs CBC & Chem 7: 04/25/22 05:57 04/26/22 05:44 Labs: Laboratory Results - last 24 hr 04/25/22 04/26/22 04/26/22 20:22 05:44 07:39 Anion Gap 16 Estim Creat Clear Calc 12.2 Estimated GFR 11 POC Glucose 141 H 115 Random Glucose 126 H Calcium 9.3 D 04/26/22 11:19 Anion Gap Estim Creat Clear Calc Estimated GFR POC Glucose 142 H Random Glucose Calcium Assessment and Plan (1) Dyspnea: Status: Acute Plan 67 year old women admitted with hypoxia for the last 3 days secondary to COVID-19 and end-stage renal disease requiring dialysis COVID 19. Essentially asymptomatic s/p hypoxia secondary to ESRD Supportive care Continue supplemental oxygen Hypoxia.? secondary to end-stage renal disease better after dialysis Nausea and vomiting Able to eat but still with nausea phenergan added Constipation one dose of lactulose ordered try fleets enema ESRD on dialysis had dialysis this week sun and Dialysis schedule Sunday and Sunday Anemia secondary to ESRD Stable Hypertension Stable blood pressure continue home medications Asthma Albuterol as needed Diabetes mellitus Sliding scale, ADA diet, Lantus GERD Continue PPI DVT prophylaxis with heparin Attending Dr. Sykes Full code DISPO home when medically clear Patient likely requires 2 inpatient midnights for treatment of hypoxia secondary to COVID-19 and end-stage renal disease also requiring dialysis Quality Stroke Does the patient have a stroke diagnosis?: No VTE Prior VTE?: No VTE Risk Level:: Medical - moderate - high VTE Device Contraindication: Treatment Not Indicated VTE Drug Contraindication: N/A - Med Ordered
[2022-04-26] MEDS: Lactulose 20 GM/30 ML SOLUTION PO (12:37)
--- NOTE | 2022-04-26 14:05 | P.CDIC_ITS ---
CDI Concurrent Query Documentation Clarification: PHYSICIAN'S DOCUMENTATION REQUEST Date of Query: 04/26/22 1405 Patient Name: Cruz Muller Admit Date: 04/24/22 Dear Doctor, Please review the following and provide your response in the progress notes. Clinical Indicators: The diagnosis of asthma was documented in the record on 04/26/22. Additional clinical indicators from the record include: Risk Factors/Clinical Indicators/Treatments Asthma Albuterol as needed Based on the above, please clarify in the Progress Notes further specificity regarding the type and acuity of the asthma: Type: * Mild intermittent - less than 2x/week * Mild persistent - more than 2x/week but not daily * Moderate persistent - daily and may restrict physical activity * Severe persistent - throughout the day with frequent attacks, limiting activities * Other ? please specify * Unable to determine Acuity: * With acute exacerbation * With status asthmaticus * Uncomplicated * Unable to determine Use of terms such as suspected, likely, concern for, or probable (associated with a specific diagnosis that is being evaluated, monitored, or treated as if it exists) are acceptable and can be coded in the inpatient setting, when documented at the time of discharge. Thank you, Khushboo Sanchez RN Extension: [phone] Please use your independent medical judgment in providing your response. THIS QUERY IS PART OF THE PERMANENT MEDICAL RECORD Other Diagnosis: Moderate persistent
--- NOTE | 2022-04-26 14:05 | MHC.CDI.CONC ---
CDI Concurrent Query Documentation Clarification: PHYSICIAN'S DOCUMENTATION REQUEST Date of Query: 04/26/22 1407 Patient Name: Cruz Muller Admit Date: 04/24/22 Dear Doctor, Please review the following and provide your response in the progress notes. Clinical Indicators: The diagnosis of asthma was documented in the record on 04/26/22. Additional clinical indicators from the record include: Risk Factors/Clinical Indicators/Treatments Asthma Albuterol as needed Based on the above, please clarify in the Progress Notes further specificity regarding the type and acuity of the asthma: Type: Mild intermittent - less than 2x/week Mild persistent - more than 2x/week but not daily Moderate persistent - daily and may restrict physical activity Severe persistent - throughout the day with frequent attacks, limiting activities Other ? please specify Unable to determine Acuity: With acute exacerbation With status asthmaticus Uncomplicated Unable to determine Use of terms such as suspected, likely, concern for, or probable (associated with a specific diagnosis that is being evaluated, monitored, or treated as if it exists) are acceptable and can be coded in the inpatient setting, when documented at the time of discharge. Thank you, Khushboo Sanchez RN Extension: [phone] Please use your independent medical judgment in providing your response. THIS QUERY IS PART OF THE PERMANENT MEDICAL RECORD Other Diagnosis: Moderate persistent
[2022-04-26 15:52] LABS: Glucose, Whole Blood 194 mg/dL (60-115)
[2022-04-26 19:56] LABS: Glucose, Whole Blood 157 mg/dL (60-115)
[2022-04-26] MEDS: amLODIPine Besylate 10 MG TABLET PO (21:37)
[2022-04-26] MEDS: Insulin Lispro 100 UNIT/ML 3 ML VIAL SUBCUT (21:38)
[2022-04-27 07:12] VITALS: BP 140/82; PULSE 61; RESP 12; TEMP 36.2; O2SAT 95
[2022-04-27 07:40] LABS: Glucose, Whole Blood 146 mg/dL (60-115)
[2022-04-27] MEDS: Bumetanide 1 MG TABLET 2 MG PO (08:05)
[2022-04-27] MEDS: hydrALAZINE HCl 50 MG TABLET 100 MG PO ×2 (08:05→22:08)
[2022-04-27] MEDS: Omeprazole 20 MG CAPSULE.DR PO (08:05)
[2022-04-27] MEDS: carvediloL 6.25 MG TABLET PO (08:05)
[2022-04-27] MEDS: Gabapentin 300 MG CAPSULE PO (08:05)
[2022-04-27] MEDS: Aspirin Enteric Coated 81 MG TABLET.DR PO (08:05)
[2022-04-27] MEDS: Multivitamin TABLET 1 TAB PO (08:06)
[2022-04-27] MEDS: Isosorbide Mononitrate 30 MG TAB.ER.24H PO (08:06)
[2022-04-27] MEDS: dilTIAZem HCL CD 180 MG CAP.ER.24H 360 MG PO (08:06)
[2022-04-27] MEDS: cloNIDine HCL 0.2 MG TABLET PO ×2 (08:06→22:08)
[2022-04-27] MEDS: Nicotine 14 MG PATCH.TD24 TRANSDERMA (08:07)
[2022-04-27] MEDS: Insulin Glargine,Hum.rec.anlog 100 UNIT/ML 10 ML VIAL 7 UNIT SUBCUT (08:07)
[2022-04-27] MEDS: Buprenorphine/Naloxone 8/2 mg FILM 2 FILM SUBLINGUAL (08:07)
[2022-04-27] MEDS: 0.9 % Sodium Chloride Flush 3 ML SYRINGE IVFLUSH ×3 (08:20→22:09)
[2022-04-27] MEDS: Hydrocortisone 2.5 % Rectal Cr 30 GM TUBE 1 APPL PR ×2 (08:20→22:10)
[2022-04-27] MEDS: ondansetron HCL 4 MG/2 ML VIAL IVPUSH ×2 (08:30→16:26)
--- NOTE | 2022-04-27 10:58 | PM.PNNEP ---
Subjective Subjective Date of Service: 05/01/22 Interval history: Events noted Physical Exam Vital Signs: Vital Signs: Last Vital Signs Temp 97.1 F 04/27/22 07:12 Pulse 61 04/27/22 07:12 Resp 12 04/27/22 07:12 BP 140/82 H 04/27/22 07:12 Pulse Ox 95 04/27/22 07:12 O2 Del Method 04/27/22 07:12 O2 Flow Rate 2 04/26/22 23:29 BMI result Body Mass Index 29.3 Const: General: cooperative Eyes: Sclerae: sclerae normal Resp: Auscultation: crackles Cardio: Rhythm: regular rhythm GI: Palpation (GI): nontender Objective Data Labs CBC & Chem 7: 04/25/22 05:57 04/26/22 05:44 Labs: Laboratory Results - last 24 hr 04/26/22 04/26/22 04/26/22 11:19 15:42 19:44 POC Glucose 142 H 194 H 157 H 04/27/22 07:17 POC Glucose 146 H Procedures Date of Service Date of Service: 04/27/22 Assessment & Plan Assessment and plan (1) Constipation: Status: Acute Plan COVID 19 ESRD on dialysis Dialysis Sunday and Sunday Anemia secondary to ESRD Epogen as needed Hypertension Stable blood pressure continue home medications Time Spent With Patient Time: Total time spent is greater than 50% in coordination of care (as documented) at patient's floor/unit and/or counseling patient: Progress Note: Quality Stroke Does the patient have a stroke diagnosis?: No
[2022-04-27 11:16] LABS: Glucose, Whole Blood 208 mg/dL (60-115)
--- NOTE | 2022-04-27 11:33 | P.PNIM_ITS ---
Subjective Subjective Date of Service: 04/27/22 Interval History: seen and examined this morning follow up for covid, nausea still reporting nausea reporting dyspnea, no cough Review of Systems Review of Systems: Yes all other systems are reviewed and are negative Constitutional Constitutional: Denies chills and Denies fever(s) Cardiovascular Cardiovascular: Denies chest pain, Denies palpitations and Reports dyspnea Respiratory Respiratory: Denies cough and Reports dyspnea Gastrointestinal Gastrointestinal: Denies abdominal pain and Reports nausea Endocrine Endocrine: Denies palpitations Physical Exam Vital Signs: Vital Signs: Last Vital Signs Temp 97.1 F 04/27/22 07:12 Pulse 61 04/27/22 07:12 Resp 12 04/27/22 07:12 BP 140/82 H 04/27/22 07:12 Pulse Ox 95 04/27/22 07:12 O2 Del Method 04/27/22 07:12 O2 Flow Rate 2 04/26/22 23:29 BMI result Body Mass Index 29.3 Const: General: comfortable, alert and awake Nutritional Appearance: average body habitus Orientation/consciousness: patient oriented x3 Resp: Effort & Inspection: normal respiratory effort and able to speak in com plete sentences Auscultation: crackles Cardio: Rate: regular rate Heart sounds: S1 normal heart sound present and S2 normal heart sound present GI: Inspection: No distended Palpation (GI): Soft to palpation and nontender Neuro: General: patient oriented x3 and CN's II-XI intact bilaterally Extrem: General: Yes no pedal edema Objective Data Active Medications Acetaminophen (Acetaminophen 325 Mg Tablet) 650 mg PO Q6H PRN PRN Reason: Pain, Mild (Pain Scale 1-3) Last Admin: 04/26/22 03:35 Dose: 650 mg Documented By: YESSENIA Acetaminophen (Acetaminophen 325 Mg Tablet) 325 mg PO Q8H PRN PRN Reason: Pain, Mild Albuterol Sulfate (Albuterol Sulfate (0.083%) 2.5 Mg/3 Ml Vial.Neb) 2.5 mg INHALE TID PRN PRN Reason: Shortness Of Breath Amlodipine Besylate (Amlodipine Besylate 10 Mg Tablet) 10 mg PO BEDTIME [facility]; Protocol Last Admin: 04/26/22 21:37 Dose: 10 mg Documented By: YESSENIA Aspirin (Aspirin Enteric Coated 81 Mg Tablet.) 81 mg PO DAILY [facility] [place] Last Admin: 04/27/22 08:05 Dose: 81 mg Documented By: LENO Bumetanide (Bumetanide 1 Mg Tablet) 2 mg PO DAILY [facility] [place]; Protocol Last Admin: 04/27/22 08:05 Dose: 2 mg Documented By: LENO Buprenorphine/Naloxone (Buprenorphine/Naloxone 8/2 Mg Film) 2 film SUBLINGUAL DAILY [facility] [place] Last Admin: 04/27/22 08:07 Dose: 2 film Documented By: LENO Carvedilol (Carvedilol 6.25 Mg Tablet) 6.25 mg PO BID [facility] [place]; Protocol Last Admin: 04/27/22 08:05 Dose: 6.25 mg Documented By: LENO Clonidine HCl (Clonidine Hcl 0.2 Mg Tablet) 0.2 mg PO BID [facility] [place]; Protocol Last Admin: 04/27/22 08:06 Dose: 0.2 mg Documented By: LENO Diltiazem HCl (Diltiazem Hcl Cd 180 Mg Cap.Er.24h) 360 mg PO DAILY [facility] [place]; Protocol Last Admin: 04/27/22 08:06 Dose: 360 mg Documented By: LENO Docusate Sodium (Docusate Sodium 100 Mg Capsule) 100 mg PO BID PRN PRN Reason: Constipation Fluticasone Propionate (Fluticasone Propionate 100 Mcg Blst.W.Dev) 1 puff INHALE RBID [facility] [place] Last Admin: 04/27/22 07:58 Dose: Not Given Documented By: DRAKE Non-Admin Reason: Med Not Available Gabapentin (Gabapentin 300 Mg Capsule) 300 mg PO DAILY [facility] [place] Last Admin: 04/27/22 08:05 Dose: 300 mg Documented By: LENO Heparin Sodium (Porcine) (Heparin Sodium,Porcine 5,000 Unit/Ml Vial) 5,000 unit SUBCUT Q12H [facility] [place] Last Admin: 04/27/22 02:53 Dose: Not Given Documented By: YESSENIA Non-Admin Reason: Patient Refused Hydralazine HCl (Hydralazine Hcl 50 Mg Tablet) 100 mg PO TID [facility] [place]; Protocol Last Admin: 04/27/22 08:05 Dose: 100 mg Documented By: LENO Hydrocortisone (Hydrocortisone 2.5 % Rectal Cr 30 Gm Tube) 1 appl IA BID [facility] [place] Last Admin: 04/27/22 08:20 Dose: 1 appl Documented By: LENO Promethazine HCl 12.5 mg/ (Sodium Chloride) 50.5 mls @ 202 mls/hr IV Q6H PRN PRN Reason: Nausea and Vomiting Insulin Glargine (Insulin Glargine,Hum.Rec.Anlog 100 Unit/Ml 10 Ml Vial) 7 unit SUBCUT DAILY [facility] [place] Last Admin: 04/27/22 08:07 Dose: 7 unit Documented By: LENO Insulin Human Lispro (Insulin Lispro 100 Unit/Ml 3 Ml Vial) 0 unit SUBCUT QIDACHS [facility] [place]; Protocol Last Admin: 04/27/22 07:53 Dose: Not Given Documented By: LENO Non-Admin Reason: No Insulin Coverage Isosorbide Mononitrate (Isosorbide Mononitrate 30 Mg Tab.Er.24h) 30 mg PO DAILY [facility] [place]; Protocol Last Admin: 04/27/22 08:06 Dose: 30 mg Documented By: LENO Melatonin (Melatonin 3 Mg Tablet) 6 mg PO BEDTIME PRN PRN Reason: Sleep Last Admin: 04/25/22 20:20 Dose: 6 mg Documented By: YESSENIA Multivitamins/Vitamin C (Multivitamin Tablet) 1 tab PO DAILY [facility] [place] Last Admin: 04/27/22 08:06 Dose: 1 tab Documented By: LENO Nicotine (Nicotine 14 Mg Patch.Td24) 14 mg TRANSDERMA DAILY [facility] [place] Last Admin: 04/27/22 08:07 Dose: 14 mg Documented By: LENO Omeprazole (Omeprazole 20 Mg Capsule.Dr) 20 mg PO DAILY@0630 [facility] [place] Last Admin: 04/27/22 08:05 Dose: 20 mg Documented By: LENO Ondansetron HCl (Ondansetron Hcl 4 Mg/2 Ml Vial) 4 mg IVPUSH Q8H PRN PRN Reason: Nausea and Vomiting Last Admin: 04/27/22 08:30 Dose: 4 mg Documented By: LENO Pharmacy Consult (Consult Rx Perform Med Rec) 1 each MISCELLANE ONCE PRN PRN Reason: Consult order Polyethylene Glycol (Polyethylene Glycol 3350 17 Gm Powd.Pack) 17 gm PO DAILY PRN PRN Reason: Constipation Last Admin: 04/25/22 10:14 Dose: 17 gm Documented By: HO.WRIGHTS Sodium Biphosphate/Sodium Phosphate (Sodium Phosphate,[place]-Dibasic 133 Ml Enema) 133 ml IA ONCE PRN PRN Reason: constipation Sodium Chloride (0.9 % Sodium Chloride Flush 3 Ml Syringe) 3 ml IVFLUSH QSHIFT [facility] [place] Last Admin: 04/27/22 08:20 Dose: 3 ml Documented By: LENO Labs CBC & Chem 7: 04/25/22 05:57 04/26/22 05:44 Labs: Laboratory Results - last 24 hr 04/26/22 04/26/22 04/26/22 11:19 15:42 19:44 POC Glucose 142 H 194 H 157 H 04/27/22 04/27/22 07:17 11:11 POC Glucose 146 H 208 H Assessment and Plan (1) Acute respiratory failure with hypoxia: Status: Acute Plan 67 year old women admitted with hypoxia for the last 3 days secondary to COVID- 19 and end-stage renal disease requiring dialysis COVID 19. Essentially asymptomatic hypoxia secondary to ESRD Supportive care Continue supplemental oxygen- wean as tolerated Hypoxia.? secondary to end-stage renal disease wean supplemental oxygen. still requiring 2L Nausea and vomiting CT abdomen from 03/27 limited, but no acute intra-abdominal abnormality Able to eat but still with nausea - seems to be chronic phenergan added Constipation BM from 04/26 documented try fleets enema ESRD on dialysis had dialysis this week sun and Dialysis schedule Sunday and Sunday Anemia secondary to ESRD. chronic. Stable Hypertension Stable blood pressure continue home medications Asthma Albuterol as needed Diabetes mellitus Sliding scale, ADA diet, Lantus GERD Continue PPI DVT prophylaxis with heparin Attending Dr. Sykes Full code DISPO home when medically clear Requires ongoing inpatient hospitalization for treatment of hypoxia secondary to COVID-19 and end-stage renal disease also requiring dialysis Quality Stroke Does the patient have a stroke diagnosis?: No VTE Prior VTE?: No VTE Risk Level:: Medical - moderate - high VTE Device Contraindication: Treatment Not Indicated VTE Drug Contraindication: N/A - Med Ordered
[2022-04-27 11:51] VITALS: BP 140/62; PULSE 64; RESP 16; TEMP 36.9; O2SAT 96
[2022-04-27] MEDS: Insulin Lispro 100 UNIT/ML 3 ML VIAL SUBCUT ×2 (12:10→22:09)
[2022-04-27 15:13] VITALS: BP 105/54; PULSE 45; RESP 18; TEMP 36.2; O2SAT 98
[2022-04-27 15:38] LABS: Glucose, Whole Blood 47 mg/dL (60-115)
[2022-04-27] MEDS: Heparin Sodium,Porcine 5,000 UNIT/ML VIAL 5000 UNIT SUBCUT (15:43)
[2022-04-27 15:57] VITALS: BP 120/58
[2022-04-27] MEDS: Glucose Gel 15 GM GEL..GRAM. PO (16:25)
[2022-04-27 16:53] LABS: Glucose, Whole Blood 77 mg/dL (60-115)
[2022-04-27 17:16] LABS: Glucose, Whole Blood 75 mg/dL (60-115)
[2022-04-27 17:30] LABS: Glucose, Whole Blood 86 mg/dL (60-115)
[2022-04-27] MEDS: diphenhydrAMINE HCL 25 MG CAPSULE PO (20:37)
[2022-04-27 21:57] VITALS: BP 160/62
[2022-04-27 21:57] LABS: Glucose, Whole Blood 231 mg/dL (60-115)
[2022-04-27] MEDS: amLODIPine Besylate 10 MG TABLET PO (22:08)
[2022-04-27 23:49] VITALS: BP 143/67; PULSE 56; RESP 16; TEMP 37.3; O2SAT 99
[2022-04-28] VITALS (8 sets, daily range): BP systolic 149–181; BP diastolic 70–96; PULSE 50–100; RESP 18–20; TEMP 36.6–37.1; O2SAT 94–98
[2022-04-28] MEDS: Heparin Sodium,Porcine 5,000 UNIT/ML VIAL 5000 UNIT SUBCUT ×2 (04:34→16:12)
[2022-04-28] MEDS: Omeprazole 20 MG CAPSULE.DR PO (06:22)
[2022-04-28 07:29] LABS: Glucose, Whole Blood 147 mg/dL (60-115)
[2022-04-28] MEDS: Acetaminophen 325 MG TABLET 650 MG PO (08:34)
[2022-04-28] MEDS: Nicotine 14 MG PATCH.TD24 TRANSDERMA (08:34)
[2022-04-28] MEDS: Bumetanide 1 MG TABLET 2 MG PO (08:35)
[2022-04-28] MEDS: Aspirin Enteric Coated 81 MG TABLET.DR PO (08:35)
[2022-04-28] MEDS: dilTIAZem HCL CD 180 MG CAP.ER.24H 360 MG PO (08:35)
[2022-04-28] MEDS: hydrALAZINE HCl 50 MG TABLET 100 MG PO ×3 (08:35→20:52)
[2022-04-28] MEDS: cloNIDine HCL 0.2 MG TABLET PO ×2 (08:36→20:51)
[2022-04-28] MEDS: carvediloL 6.25 MG TABLET PO ×2 (08:36→20:52)
[2022-04-28] MEDS: Multivitamin TABLET 1 TAB PO (08:36)
[2022-04-28] MEDS: Isosorbide Mononitrate 30 MG TAB.ER.24H PO (08:36)
[2022-04-28] MEDS: Gabapentin 300 MG CAPSULE PO (08:36)
[2022-04-28] MEDS: 0.9 % Sodium Chloride Flush 3 ML SYRINGE IVFLUSH ×3 (08:36→20:49)
[2022-04-28] MEDS: Hydrocortisone 2.5 % Rectal Cr 30 GM TUBE 1 APPL PR ×2 (08:37→20:52)
[2022-04-28] MEDS: Buprenorphine/Naloxone 8/2 mg FILM 2 FILM SUBLINGUAL (08:40)
[2022-04-28] MEDS: Fluticasone Propionate 100 MCG BLST.W.DEV 1 PUFF INHALE (08:54)
[2022-04-28 10:12] LABS: C Reactive Protein 0.47 mg/dL (< or = 0.50)
[2022-04-28 11:13] LABS: Glucose, Whole Blood 178 mg/dL (60-115)
[2022-04-28] MEDS: Lactulose 20 GM/30 ML SOLUTION PO (12:30)
[2022-04-28] MEDS: Sennosides/Docusate Sodium TABLET 2 TAB PO ×2 (12:30→20:51)
--- NOTE | 2022-04-28 15:52 | MHC.CM.PN ---
Per ROUNDS discussion, Patient is possibly ready for dc soon. Home/resume services is the goal and CM will continue to follow.
[2022-04-28 16:05] LABS: Glucose, Whole Blood 107 mg/dL (60-115)
[2022-04-28] MEDS: polyethylene glycoL 3350 17 GM POWD.PACK PO (16:22)
[2022-04-28] MEDS: ondansetron HCL 4 MG/2 ML VIAL IVPUSH (16:26)
--- NOTE | 2022-04-28 17:14 | HO.PM.IMPN ---
Subjective Subjective Date of Service: 04/28/22 Interval History: c/o abd pain, swelling had BM yesterday reports dyspnea no cough on 1L O2 via NC Review of Systems Review of Systems: Yes all other systems are reviewed and are negative Physical Exam Vital Signs: Vital Signs: Last Vital Signs Temp 98.4 F 04/28/22 15:49 Pulse 50 04/28/22 15:49 Resp 19 04/28/22 15:49 BP 155/70 H 04/28/22 15:49 Pulse Ox 96 04/28/22 15:49 O2 Del Method 04/28/22 15:49 O2 Flow Rate 1 04/28/22 15:49 BMI result Body Mass Index 29.3 Gen: in no acute distress HEENT: sclera anicteric, moist mucus membranes Neck: supple Lungs: diminished bilaterally Heart: regular rate and rhythm, no murmurs Abd: soft, tender bilateral lower quadrants Ext: no edema Skin: warm/well-perfused Neuro: alert and oriented x3, no focal findings Psych: appropriate affect Objective Data Active Medications Acetaminophen (Acetaminophen 325 Mg Tablet) 650 mg PO Q6H PRN PRN Reason: Pain, Mild (Pain Scale 1-3) Last Admin: 04/28/22 08:34 Dose: 650 mg Documented By: JANNETH Acetaminophen (Acetaminophen 325 Mg Tablet) 325 mg PO Q8H PRN PRN Reason: Pain, Mild Albuterol Sulfate (Albuterol Sulfate (0.083%) 2.5 Mg/3 Ml Vial.Neb) 2.5 mg INHALE TID PRN PRN Reason: Shortness Of Breath Amlodipine Besylate (Amlodipine Besylate 10 Mg Tablet) 10 mg PO BEDTIME REPLACED BY [facility]; Protocol Last Admin: 04/27/22 22:08 Dose: 10 mg Documented By: CHEN Aspirin (Aspirin Enteric Coated 81 Mg Tablet.) 81 mg PO DAILY REPLACED BY [facility] Last Admin: 04/28/22 08:35 Dose: 81 mg Documented By: JANNETH Bumetanide (Bumetanide 1 Mg Tablet) 2 mg PO DAILY REPLACED BY [facility]; Protocol Last Admin: 04/28/22 08:35 Dose: 2 mg Documented By: JANNETH Buprenorphine/Naloxone (Buprenorphine/Naloxone 8/2 Mg Film) 2 film SUBLINGUAL DAILY REPLACED BY [facility] Last Admin: 04/28/22 08:40 Dose: 1 film Documented By: JANNETH Comments: pt stated only wanted one film Carvedilol (Carvedilol 6.25 Mg Tablet) 6.25 mg PO BID REPLACED BY [facility]; Protocol Last Admin: 04/28/22 08:36 Dose: 6.25 mg Documented By: JANNETH Clonidine HCl (Clonidine Hcl 0.2 Mg Tablet) 0.2 mg PO BID REPLACED BY [facility]; Protocol Last Admin: 04/28/22 08:36 Dose: 0.2 mg Documented By: JANNETH Dextrose (Dextrose 50 % 25 Gm/50 Ml Syringe) 25 gm IVPUSH Q15M PRN; Protocol PRN Reason: per Hypoglycemia Standing Ord. Diltiazem HCl (Diltiazem Hcl Cd 180 Mg Cap.Er.24h) 360 mg PO DAILY REPLACED BY [facility]; Protocol Last Admin: 04/28/22 08:35 Dose: 360 mg Documented By: JANNETH Fluticasone Propionate (Fluticasone Propionate 100 Mcg Blst.W.Dev) 1 puff INHALE RBID REPLACED BY [facility] Last Admin: 04/28/22 08:54 Dose: 1 puff Documented By: LIA Gabapentin (Gabapentin 300 Mg Capsule) 300 mg PO DAILY REPLACED BY [facility] Last Admin: 04/28/22 08:36 Dose: 300 mg Documented By: JANNETH Glucose (Glucose Gel 15 Gm Gel..Gram.) 15 gm PO Q15M PRN; Protocol PRN Reason: per Hypoglycemia Standing Ord. Last Admin: 04/27/22 16:25 Dose: 15 gm Documented By: CHEN Heparin Sodium (Porcine) (Heparin Sodium,Porcine 5,000 Unit/Ml Vial) 5,000 unit SUBCUT Q12H REPLACED BY [facility] Last Admin: 04/28/22 16:12 Dose: 5,000 unit Documented By: JANNETH Hydralazine HCl (Hydralazine Hcl 50 Mg Tablet) 100 mg PO TID REPLACED BY [facility]; Protocol Last Admin: 04/28/22 16:10 Dose: 100 mg Documented By: JANNETH Hydrocortisone (Hydrocortisone 2.5 % Rectal Cr 30 Gm Tube) 1 appl DC BID REPLACED BY [facility] Last Admin: 04/28/22 08:37 Dose: 1 appl Documented By: JANNETH Promethazine HCl 12.5 mg/ (Sodium Chloride) 50.5 mls @ 202 mls/hr IV Q6H PRN PRN Reason: Nausea and Vomiting Insulin Glargine (Insulin Glargine,Hum.Rec.Anlog 100 Unit/Ml 10 Ml Vial) 7 unit SUBCUT DAILY REPLACED BY [facility] Last Admin: 04/27/22 08:07 Dose: 7 unit Documented By: LENO Insulin Human Lispro (Insulin Lispro 100 Unit/Ml 3 Ml Vial) 0 unit SUBCUT QIDACHS REPLACED BY [facility]; Protocol Last Admin: 04/28/22 16:12 Dose: Not Given Documented By: JANNETH Non-Admin Reason: No Insulin Coverage Isosorbide Mononitrate (Isosorbide Mononitrate 30 Mg Tab.Er.24h) 30 mg PO DAILY REPLACED BY [facility]; Protocol Last Admin: 04/28/22 08:36 Dose: 30 mg Documented By: JANNETH Melatonin (Melatonin 3 Mg Tablet) 6 mg PO BEDTIME PRN PRN Reason: Sleep Last Admin: 04/25/22 20:20 Dose: 6 mg Documented By: YESSENIA Multivitamins/Vitamin C (Multivitamin Tablet) 1 tab PO DAILY REPLACED BY [facility] Last Admin: 04/28/22 08:36 Dose: 1 tab Documented By: JANNETH Nicotine (Nicotine 14 Mg Patch.Td24) 14 mg TRANSDERMA DAILY REPLACED BY [facility] Last Admin: 04/28/22 08:34 Dose: 14 mg Documented By: JANNETH Omeprazole (Omeprazole 20 Mg Capsule.Dr) 20 mg PO DAILY@0630 REPLACED BY [facility] Last Admin: 04/28/22 06:22 Dose: 20 mg Documented By: CHEN Ondansetron HCl (Ondansetron Hcl 4 Mg/2 Ml Vial) 4 mg IVPUSH Q8H PRN PRN Reason: Nausea and Vomiting Last Admin: 04/28/22 16:26 Dose: 4 mg Documented By: JANNETH Pharmacy Consult (Consult Rx Perform Med Rec) 1 each MISCELLANE ONCE PRN PRN Reason: Consult order Polyethylene Glycol (Polyethylene Glycol 3350 17 Gm Powd.Pack) 17 gm PO DAILY PRN PRN Reason: Constipation Last Admin: 04/28/22 16:22 Dose: 17 gm Documented By: JANNETH Senna/Docusate Sodium (Sennosides/Docusate Sodium Tablet) 2 tab PO BID REPLACED BY [facility] Last Admin: 04/28/22 12:30 Dose: 2 tab Documented By: JANNETH Sodium Biphosphate/Sodium Phosphate (Sodium Phosphate,Dorado-Dibasic 133 Ml Enema) 133 ml DC ONCE PRN PRN Reason: constipation Sodium Chloride (0.9 % Sodium Chloride Flush 3 Ml Syringe) 3 ml IVFLUSH QSHIFT REPLACED BY [facility] Last Admin: 04/28/22 16:12 Dose: 3 ml Documented By: JANNETH Labs CBC & Chem 7: 04/25/22 05:57 04/26/22 05:44 Labs: Laboratory Results - last 24 hr 04/27/22 04/27/22 04/27/22 17:11 17:26 21:53 POC Glucose 75 86 231 H C-Reactive Protein Procalcitonin 04/28/22 04/28/22 04/28/22 07:21 09:39 09:39 POC Glucose 147 H C-Reactive Protein 0.47 Procalcitonin 0.40 04/28/22 04/28/22 11:07 15:52 POC Glucose 178 H 107 C-Reactive Protein Procalcitonin Assessment and Plan (1) Acute respiratory failure with hypoxia: Status: Acute Plan d#5 67yo F with ESRD on HD admitted with hypoxia, tested positive for Covid-19, hypoxia ultimately attributed to volume overload # Covid-19 - initially treated with dexamethasone but then hypoxia attributed to volume overload, CRP low # hypoxic respiratory failure - wean O2 as tolerated # ESRD on HD - HD MWF so HD today - continue bumetanide # abd pain - treat constipation with stool softeners/laxatives - will check CT A/P given prolonged pain + nausea/vomiting # anemia of ESRD - Hb stable # HTN - amlodipine, bumetanide, carvedilol, clonidine, hydralazine, Imdur, diltiazem # DM2 - basal/bolus insulin # OUD - Suboxone # tob abuse - NRT # asthma not in acute exac - prn albuterol, continue ICS # GERD - PPI # VTE ppx: UFH # dispo: anticipate home with VNA when hypoxia resolves In my clinical judgment, the patient requires continued inpatient hospitalization for the following reasons: hypoxia, abd pain Time Spent With Patient Time: Total time managing care of this patient today 30 minutes. Quality Stroke Does the patient have a stroke diagnosis?: No VTE Prior VTE?: No VTE Risk Level:: Medical - moderate - high VTE Device Contraindication: Treatment Not Indicated VTE Drug Contraindication: N/A - Med Ordered
[2022-04-28 20:35] LABS: Glucose, Whole Blood 122 mg/dL (60-115)
[2022-04-28] MEDS: amLODIPine Besylate 10 MG TABLET PO (20:52)
[2022-04-28] MEDS: iohexoL 350 MG/ML 100 ML INFUS..BTL IV (21:36)
[2022-04-29] MEDS: Heparin Sodium,Porcine 5,000 UNIT/ML VIAL 5000 UNIT SUBCUT ×2 (02:39→17:50)
[2022-04-29] MEDS: ondansetron HCL 4 MG/2 ML VIAL IVPUSH ×2 (02:41→08:09)
[2022-04-29 03:06] VITALS: BP 164/72; PULSE 54; RESP 18; TEMP 36.5; O2SAT 96
[2022-04-29] MEDS: Omeprazole 20 MG CAPSULE.DR PO (06:04)
[2022-04-29 07:08] VITALS: BP 169/62; PULSE 61; RESP 16; TEMP 36.4; O2SAT 97
[2022-04-29 07:32] LABS: Glucose, Whole Blood 181 mg/dL (60-115)
[2022-04-29] MEDS: Isosorbide Mononitrate 30 MG TAB.ER.24H PO (07:57)
[2022-04-29] MEDS: Nicotine 14 MG PATCH.TD24 TRANSDERMA (07:57)
[2022-04-29] MEDS: Bumetanide 1 MG TABLET 2 MG PO (07:58)
[2022-04-29] MEDS: carvediloL 6.25 MG TABLET PO ×2 (07:58→19:46)
[2022-04-29] MEDS: Aspirin Enteric Coated 81 MG TABLET.DR PO (07:58)
[2022-04-29] MEDS: Gabapentin 300 MG CAPSULE PO (07:58)
[2022-04-29] MEDS: Sennosides/Docusate Sodium TABLET 2 TAB PO (07:58)
[2022-04-29] MEDS: Insulin Lispro 100 UNIT/ML 3 ML VIAL SUBCUT ×3 (07:59→19:49)
[2022-04-29] MEDS: hydrALAZINE HCl 50 MG TABLET 100 MG PO ×3 (07:59→19:47)
[2022-04-29] MEDS: cloNIDine HCL 0.2 MG TABLET PO ×2 (07:59→19:47)
[2022-04-29] MEDS: dilTIAZem HCL CD 180 MG CAP.ER.24H 360 MG PO (07:59)
[2022-04-29] MEDS: Buprenorphine/Naloxone 8/2 mg FILM 2 FILM SUBLINGUAL (08:00)
[2022-04-29] MEDS: 0.9 % Sodium Chloride Flush 3 ML SYRINGE IVFLUSH (08:00)
[2022-04-29] MEDS: Hydrocortisone 2.5 % Rectal Cr 30 GM TUBE 1 APPL PR ×2 (08:15→19:48)
[2022-04-29] MEDS: Lactulose 20 GM/30 ML SOLUTION PO ×2 (11:16→17:51)
[2022-04-29] MEDS: polyethylene glycoL 3350 17 GM POWD.PACK PO (11:17)
[2022-04-29] MEDS: Sodium Phosphate,Mono-Dibasic 133 ML ENEMA PR (11:19)
[2022-04-29 11:35] VITALS: BP 179/52; PULSE 58; RESP 16; TEMP 36.6; O2SAT 95
[2022-04-29 11:47] LABS: Glucose, Whole Blood 237 mg/dL (60-115)
--- NOTE | 2022-04-29 11:57 | P.PNNP_ITS ---
Subjective Subjective Date of Service: 04/29/22 Interval history: c/o abd pain and constipation, no BM in 2 days I did not go into pt room given GOVID status but discussed her status with T ech/RN Physical Exam Vital Signs: Vital Signs: Last Vital Signs Temp 97.8 F 04/29/22 11:35 Pulse 58 04/29/22 11:35 Resp 16 04/29/22 11:35 BP 179/52 H 04/29/22 11:35 Pulse Ox 95 04/29/22 11:35 O2 Del Method 04/29/22 11:35 O2 Flow Rate 1 04/29/22 11:35 BMI result Body Mass Index 29.3 Objective Data Labs CBC & Chem 7: 04/25/22 05:57 04/26/22 05:44 Labs: Laboratory Results - last 24 hr 04/28/22 04/28/22 04/29/22 15:52 20:31 07:07 POC Glucose 107 122 H 181 H 04/29/22 11:34 POC Glucose 237 H Procedures Date of Service Date of Service: 04/29/22 Assessment & Plan Assessment and plan (1) ESRD (end stage renal disease): Status: Acute (2) COVID: Status: Acute Plan Pt improving Remains constipated Plan is for dialysis today BP up, monitor Time Spent With Patient Time: Total time managing care of this patient today ____ minutes. Progress Note: Quality Stroke Does the patient have a stroke diagnosis?: No
--- NOTE | 2022-04-29 13:02 | HO.PM.IMPN ---
Subjective Subjective Date of Service: 04/29/22 Interval History: abd pain, constipation remains on 1L via NC no cough Review of Systems Review of Systems: Yes all other systems are reviewed and are negative Physical Exam Vital Signs: Vital Signs: Last Vital Signs Temp 97.8 F 04/29/22 11:35 Pulse 58 04/29/22 11:35 Resp 16 04/29/22 11:35 BP 179/52 H 04/29/22 11:35 Pulse Ox 95 04/29/22 11:35 O2 Del Method 04/29/22 11:35 O2 Flow Rate 1 04/29/22 11:35 BMI result Body Mass Index 29.3 Gen: in no acute distress HEENT: sclera anicteric, moist mucus membranes Neck: supple Lungs: diminished bilaterally Heart: regular rate and rhythm, no murmurs Abd: soft, tender bilateral lower quadrants Ext: no edema Skin: warm/well-perfused Neuro: alert and oriented x3, no focal findings Psych: appropriate affect Objective Data Active Medications Acetaminophen (Acetaminophen 325 Mg Tablet) 650 mg PO Q6H PRN PRN Reason: Pain, Mild (Pain Scale 1-3) Last Admin: 04/28/22 08:34 Dose: 650 mg Documented By: JANNETH Acetaminophen (Acetaminophen 325 Mg Tablet) 325 mg PO Q8H PRN PRN Reason: Pain, Mild Albuterol Sulfate (Albuterol Sulfate (0.083%) 2.5 Mg/3 Ml Vial.Neb) 2.5 mg INHALE TID PRN PRN Reason: Shortness Of Breath Amlodipine Besylate (Amlodipine Besylate 10 Mg Tablet) 10 mg PO BEDTIME [facility]; Protocol Last Admin: 04/28/22 20:52 Dose: 10 mg Documented By: TYRA Aspirin (Aspirin Enteric Coated 81 Mg Tablet.) 81 mg PO DAILY [facility] Last Admin: 04/29/22 07:58 Dose: 81 mg Documented By: JANNETH Bumetanide (Bumetanide 1 Mg Tablet) 2 mg PO DAILY [facility]; Protocol Last Admin: 04/29/22 07:58 Dose: 2 mg Documented By: JANNETH Buprenorphine/Naloxone (Buprenorphine/Naloxone 8/2 Mg Film) 2 film SUBLINGUAL DAILY [facility] Last Admin: 04/29/22 08:00 Dose: 1 film Documented By: JANNETH Comments: pt would only take one film Carvedilol (Carvedilol 6.25 Mg Tablet) 6.25 mg PO BID [facility]; Protocol Last Admin: 04/29/22 07:58 Dose: 6.25 mg Documented By: JANNETH Clonidine HCl (Clonidine Hcl 0.2 Mg Tablet) 0.2 mg PO BID [facility]; Protocol Last Admin: 04/29/22 07:59 Dose: 0.2 mg Documented By: JANNETH Dextrose (Dextrose 50 % 25 Gm/50 Ml Syringe) 25 gm IVPUSH Q15M PRN; Protocol PRN Reason: per Hypoglycemia Standing Ord. Diltiazem HCl (Diltiazem Hcl Cd 180 Mg Cap.Er.24h) 360 mg PO DAILY [facility]; Protocol Last Admin: 04/29/22 07:59 Dose: 360 mg Documented By: JANNETH Fluticasone Propionate (Fluticasone Propionate 100 Mcg Blst.W.Dev) 1 puff INHALE RBID [facility] Last Admin: 04/29/22 08:35 Dose: Not Given Documented By: CLARISSA Non-Admin Reason: Med Not Available Gabapentin (Gabapentin 300 Mg Capsule) 300 mg PO DAILY [facility] Last Admin: 04/29/22 07:58 Dose: 300 mg Documented By: JANNETH Glucose (Glucose Gel 15 Gm Gel..Gram.) 15 gm PO Q15M PRN; Protocol PRN Reason: per Hypoglycemia Standing Ord. Last Admin: 04/27/22 16:25 Dose: 15 gm Documented By: CHEN Heparin Sodium (Porcine) (Heparin Sodium,Porcine 5,000 Unit/Ml Vial) 5,000 unit SUBCUT Q12H [facility] Last Admin: 04/29/22 02:39 Dose: 5,000 unit Documented By: TYRA Hydralazine HCl (Hydralazine Hcl 50 Mg Tablet) 100 mg PO TID [facility]; Protocol Last Admin: 04/29/22 07:59 Dose: 100 mg Documented By: JANNETH Hydrocortisone (Hydrocortisone 2.5 % Rectal Cr 30 Gm Tube) 1 appl AL BID [facility] Last Admin: 04/29/22 08:15 Dose: 1 appl Documented By: JANNETH Promethazine HCl 12.5 mg/ (Sodium Chloride) 50.5 mls @ 202 mls/hr IV Q6H PRN PRN Reason: Nausea and Vomiting Insulin Glargine (Insulin Glargine,Hum.Rec.Anlog 100 Unit/Ml 10 Ml Vial) 7 unit SUBCUT DAILY [facility] Last Admin: 04/27/22 08:07 Dose: 7 unit Documented By: LENO Insulin Human Lispro (Insulin Lispro 100 Unit/Ml 3 Ml Vial) 0 unit SUBCUT QIDACHS [facility]; Protocol Last Admin: 04/29/22 12:39 Dose: 4 unit Documented By: TOM Isosorbide Mononitrate (Isosorbide Mononitrate 30 Mg Tab.Er.24h) 30 mg PO DAILY [facility]; Protocol Last Admin: 04/29/22 07:57 Dose: 30 mg Documented By: JANNETH Lactulose (Lactulose 20 Gm/30 Ml Solution) 20 gm PO TID [facility] Last Admin: 04/29/22 11:16 Dose: 20 gm Documented By: JANNETH Melatonin (Melatonin 3 Mg Tablet) 6 mg PO BEDTIME PRN PRN Reason: Sleep Last Admin: 04/25/22 20:20 Dose: 6 mg Documented By: YESSENIA Multivitamins/Vitamin C (Multivitamin Tablet) 1 tab PO DAILY [facility] Last Admin: 04/29/22 08:11 Dose: Not Given Documented By: JANNETH Non-Admin Reason: Patient Refused Nicotine (Nicotine 14 Mg Patch.Td24) 14 mg TRANSDERMA DAILY [facility] Last Admin: 04/29/22 07:57 Dose: 14 mg Documented By: JANNETH Omeprazole (Omeprazole 20 Mg Capsule.) 20 mg PO DAILY@0630 [facility] Last Admin: 04/29/22 06:04 Dose: 20 mg Documented By: TYRA Ondansetron HCl (Ondansetron Hcl 4 Mg/2 Ml Vial) 4 mg IVPUSH Q8H PRN PRN Reason: Nausea and Vomiting Last Admin: 04/29/22 08:09 Dose: 4 mg Documented By: JANNETH Pharmacy Consult (Consult Rx Perform Med Rec) 1 each MISCELLANE ONCE PRN PRN Reason: Consult order Polyethylene Glycol (Polyethylene Glycol 3350 17 Gm Powd.Pack) 17 gm PO DAILY [facility] Last Admin: 04/29/22 11:17 Dose: 17 gm Documented By: JANNETH Senna/Docusate Sodium (Sennosides/Docusate Sodium Tablet) 2 tab PO BID [facility] Last Admin: 04/29/22 07:58 Dose: 2 tab Documented By: JANNETH Sodium Chloride (0.9 % Sodium Chloride Flush 3 Ml Syringe) 3 ml IVFLUSH QSHIFT [facility] Last Admin: 04/29/22 08:00 Dose: 3 ml Documented By: JANNETH Labs CBC & Chem 7: 04/25/22 05:57 04/26/22 05:44 Labs: Laboratory Results - last 24 hr 04/28/22 04/28/22 04/29/22 15:52 20:31 07:07 POC Glucose 107 122 H 181 H 04/29/22 11:34 POC Glucose 237 H ITS Impressions Chest X-Ray 04/24/22 04:10 IMPRESSION: Prominent central vasculature and surrounding interstitial opacification, suspicious for mild edema. Cardiac silhouette remains enlarged. Abdomen/Pelvis CT 04/28/22 21:36 IMPRESSION: Severe constipation. Question stercoral colitis of the distal colon and rectum. 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 This could be better evaluated with CTA. Low-attenuation centrally in the uterus suggestive and of endometrial fluid or thickening. Follow-up pelvic ultrasound recommended, particularly if there is history of vaginal bleeding. Stable L3 vertebral body compression fracture Fleischner guidelines were followed. 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 outpt pelvic US # anemia of ESRD - Hb stable # HTN - continue amlodipine, bumetanide, carvedilol, clonidine, hydralazine, Imdur, diltiazem # DM2 - basal/bolus insulin # OUD - Suboxone # tob abuse - NRT # asthma not in acute exac - prn albuterol, continue ICS # GERD - PPI # VTE ppx: UFH # dispo: anticipate home with VNA when hypoxia resolves In my clinical judgment, the patient requires continued inpatient hospitalization for the following reasons: hypoxia, abd pain Time Spent With Patient Time: Total time managing care of this patient today ____ minutes. Quality Stroke Does the patient have a stroke diagnosis?: No VTE Prior VTE?: No VTE Risk Level:: Medical - moderate - high VTE Device Contraindication: Treatment Not Indicated VTE Drug Contraindication: N/A - Med Ordered
[2022-04-29] MEDS: Ondansetron ODT 4 MG TAB.RAPDIS TRANSLINGU (14:40)
[2022-04-29 16:00] VITALS: BP 161/72; PULSE 55; RESP 17; TEMP 36.7; O2SAT 93
[2022-04-29 17:37] LABS: Glucose, Whole Blood 147 mg/dL (60-115)
[2022-04-29 18:59] VITALS: BP 154/70; PULSE 61; RESP 17; TEMP 37; O2SAT 92
[2022-04-29 19:17] LABS: Glucose, Whole Blood 270 mg/dL (60-115)
[2022-04-29] MEDS: amLODIPine Besylate 10 MG TABLET PO (19:47)
[2022-04-30] VITALS: BP 159/74; PULSE 65; RESP 18; TEMP 37.3; O2SAT 93
[2022-04-30 04:00] VITALS: BP 180/75; PULSE 78; RESP 18; TEMP 37.6; O2SAT 92
[2022-04-30] MEDS: Heparin Sodium,Porcine 5,000 UNIT/ML VIAL 5000 UNIT SUBCUT (06:29)
[2022-04-30] MEDS: Omeprazole 20 MG CAPSULE.DR PO (06:29)
[2022-04-30 07:10] VITALS: BP 182/63; PULSE 85; RESP 17; TEMP 36.8; O2SAT 93
[2022-04-30 07:52] LABS: Glucose, Whole Blood 181 mg/dL (60-115)
[2022-04-30] MEDS: Hydrocortisone 2.5 % Rectal Cr 30 GM TUBE 1 APPL PR (08:03)
[2022-04-30] MEDS: Nicotine 14 MG PATCH.TD24 TRANSDERMA (08:03)
[2022-04-30] MEDS: dilTIAZem HCL CD 180 MG CAP.ER.24H 360 MG PO (08:03)
[2022-04-30] MEDS: Buprenorphine/Naloxone 8/2 mg FILM 2 FILM SUBLINGUAL (08:03)
[2022-04-30] MEDS: carvediloL 6.25 MG TABLET PO (08:04)
[2022-04-30] MEDS: Isosorbide Mononitrate 30 MG TAB.ER.24H PO (08:04)
[2022-04-30] MEDS: Aspirin Enteric Coated 81 MG TABLET.DR PO (08:04)
[2022-04-30] MEDS: Gabapentin 300 MG CAPSULE PO (08:04)
[2022-04-30] MEDS: hydrALAZINE HCl 50 MG TABLET 100 MG PO (08:04)
[2022-04-30] MEDS: cloNIDine HCL 0.2 MG TABLET PO (08:04)
[2022-04-30] MEDS: Bumetanide 1 MG TABLET 2 MG PO (08:04)
[2022-04-30] MEDS: Fluticasone Propionate 100 MCG BLST.W.DEV 1 PUFF INHALE (08:23)
[2022-04-30 08:25] VITALS: PULSE 85; RESP 20; O2SAT 88
[2022-04-30] MEDS: Ondansetron ODT 4 MG TAB.RAPDIS TRANSLINGU (08:28)
[2022-04-30 10:58] VITALS: BP 164/78; PULSE 74; RESP 17; TEMP 36.5; O2SAT 92
--- NOTE | 2022-04-30 11:08 | PM.DS ---
DS: Providers Provider Date of Service: 04/30/22 Date of admission: 04/24/22 14:39 Primary care physician: Sammy Vicente MD Consults: 04/24/22 14:44 Consult to Nephrology Routine Consulting Provider: Miguel López Reason for consultation: ESRD Has provider been notified: No DS: Diagnosis Discharge Diagnosis (1) Acute respiratory failure with hypoxia: Status: Acute DS: Summary Hospital Course Hospital Course: History of presenting illness Date of Service: 04/24/22 Attending physician on admission: Kunal Combs Chief Complaint: SOB 67-year-old Green[place]ic-speaking woman presenting to the ER with 3 days of worsening shortness of breath.? She had missed dialysis today and was brought to the ER.? She denies chest pain, fever, chills, nausea, vomiting, diarrhea, recent travel, sick contacts, recent illness.? According to the ER provider she missed dialysis on Sunday, usual schedule is Sunday and Sunday, patient denies this reports that she did go.? Incidentally patient was found to have COVID-19.? Apparently per EMS patient was hypoxic around 87 however nothing documented.? Patient remains 92% on 2 L nasal cannula.? Her labs within acceptable limits, creatinine 7.05.? BNP 8934.? ER provider did talk to Nephrology, plan for dialysis tonight.? She was given 1 dose of IV Decadron and she will be admitted for further management and treatment of acute COVID and end-stage renal disease requiring dialysis. Hospital course 67yo F with ESRD on HD admitted with hypoxia, tested positive for Covid-19, hypoxia ultimately attributed to volume overload # Covid-19, initially treated with dexamethasone but then hypoxia attributed to volume overload, CRP low, continue hemodialysis as before, no further treatment recommended hypoxia resolved # hypoxic respiratory failure resolved likely due to fluid overload from missed hemodialysis # ESRD on HD continue Bumex # constipation with stercoral colitis resolved patient had 2 bowel movements recommend to take MiraLax daily and continue Colace and senna as needed # incidental renal artery aneurysm recommend outpt CTA # endometrial thickening, incidental , denies vag bleeding, recommend? outpt pelvic US # anemia of ESRD - Hb stable # HTN still with few high blood pressure readings continue home medications amlodipine, bumetanide, carvedilol, clonidine, hydralazine, Imdur, and diltiazem. # DM2 continue home insulin and diabetic diet # OUD -continue Suboxone complain of as needed nausea on Zofran # tobacco abuse recommend complete smoking cessation # asthma not in acute exac on prn albuterol, continue ICS Time Spent with Patient Time attestation: Total time managing care of this patient today ____ minutes. Discharge coordination time: Greater than 30 minutes Quality: Safe Use of Opioids Does Pt have an Active Cancer Diagnosis on the Problem List?: No Quality: Stroke Does the patient have a stroke diagnosis?: No Physical Exam Vital Signs: Vital Signs: Last Vital Signs Temp 97.7 F 04/30/22 10:58 Pulse 74 04/30/22 10:58 Resp 17 04/30/22 10:58 BP 164/78 H 04/30/22 10:58 Pulse Ox 92 04/30/22 10:58 O2 Del Method 04/30/22 10:58 O2 Flow Rate 0.5 04/30/22 07:10 BMI result Body Mass Index 29.3 Const: Other: Gen:awake alert, in no acute distress HEENT: sclera anicteric, moist mucus membranes Neck: supple Lungs: Clear to auscultation, no wheeze, no crackles, diminished bilaterally Heart: regular rate and rhythm, no murmurs Abd: soft, tender bilateral lower quadrants Ext: no edema Skin: warm/well-perfused Neuro: alert and oriented x3, no focal findings Psych: appropriate affect DS: Data Data Completed and Pending Completed studies during hospitalization [Text1]: Procedures Assistance with Respiratory Ventilation, Less than 24 Consecutive Hours, Continuous Positive Airway Pressure (04/14/22) Excision of Left Kidney, Percutaneous Approach, Diagnostic (02/25/21) Excision of Right Kidney, Percutaneous Approach, Diagnostic (10/22/20) Insertion of Endotracheal Airway into Trachea, Via Natural or Artificial Opening (10/12/21) Insertion of Infusion Device into Right Atrium, Percutaneous Approach (01/30/22) Insertion of Infusion Device into Superior Vena Cava, Percutaneous Approach (02/25/21) Insertion of Tunneled Vascular Access Device into Chest Subcutaneous Tissue and Fascia, Percutaneous Approach (10/12/21) Performance of Urinary Filtration, Intermittent, Less than 6 Hours Per Day (04/14/22) Respiratory Ventilation, 24-96 Consecutive Hours (10/12/21) Transfusion of Nonautologous Red Blood Cells into Peripheral Vein, Percutaneous Approach (02/25/21) Ultrasonography of Superior Vena Cava, Guidance (01/30/22) Labs on day of discharge: Laboratory Results - last 24 hr 04/29/22 04/29/22 04/29/22 11:34 17:32 18:58 POC Glucose 237 H 147 H 270 H 04/30/22 07:05 POC Glucose 181 H Discharge Plan Discharge Anticipated Discharge Date/Time: 04/30/22 10:55 Patient Disposition: Home, Self-Care Discharge Diagnosis: Acute hypoxic respiratory failure resolved COVID-19 Constipation with stercoral colitis Incidental renal artery aneurysm Incidental finding endometrial thickening Referrals: Sammy Vicente MD [Primary Care Provider] - 05/09/22 2:15 pm (You have appointment scheduled with PCP, call office if you need to reschedule. ) Discharge Medications: New diphenhydramine HCl [Benadryl] 25 mg capsule 25 mg PO DAILY PRN (Reason: allergy symptoms) Qty: 30 0RF Continued buprenorphine-naloxone [Suboxone] 8-2 mg film 2 strip sublingual DAILY diltiazem HCl 180 mg capsule,extended release 24hr 360 mg PO DAILY acetaminophen 500 mg Tablet 500 mg PO Q8H PRN (Reason: Pain, Mild) clonidine HCl 0.2 mg tablet 0.2 mg PO BID insulin aspart U-100 [Novolog PenFill U-100 Insulin] 100 unit/mL Cartridge 1 sliding scale dose SUBCUT USEASDIRECTD Protocol: Insulin Correction Scale Less than or equal to 110 ---- Give (units): 0 111 to 150 Give (units): 0 151 to 200 Give (units): 4 201 to 250 Give (units): 6 251 to 300 Give (units): 8 301 to 350 Give (units): 10 Greater than 350 Give (units): 12 Call MD if Blood Glucose > : 350 docusate sodium [Colace] 100 mg capsule 100 mg PO BID PRN (Reason: Constipation) Qty: 30 0RF amlodipine 10 mg Tablet 10 mg PO BEDTIME Qty: 30 0RF Protocol: Hold for SBP< HOLD for SBP < : 90 Rx Instructions: replaces prior dose of 5 mg daily bumetanide 2 mg Tablet 2 mg PO DAILY pantoprazole 40 mg Tablet,Delayed Release (Dr/Ec) 40 mg PO DAILY melatonin 5 mg Tablet 5 mg PO BEDTIME PRN (Reason: Sleep) [employer]ATOR-[facility] Rx 1-60-300 mg-mg-mcg Tablet 1 tab PO DAILY fluticasone propionate [Flovent HFA] 110 mcg/actuation Hfa Aerosol Inhaler 1 puff INHALATION BID sennosides [senna] 8.6 mg tablet 1 - 2 tab PO BEDTIME PRN (Reason: constipation) insulin glargine [Lantus U-100 Insulin] 100 unit/mL solution 7 unit subcut DAILY isosorbide mononitrate 30 mg Tablet Extended Release 24 Hr 30 mg PO DAILY Qty: 30 0RF Protocol: Hold for SBP< HOLD for SBP < : 90 albuterol sulfate 2.5 mg /3 mL (0.083 %) solution for nebulization 3 ml inhalation TID PRN (Reason: Shortness Of Breath) aspirin 81 mg tablet,delayed release (DR/EC) 1 tab PO DAILY albuterol sulfate [Ventolin HFA] 90 mcg/actuation HFA aerosol inhaler 2 puff INHALATION Q4-6H PRN (Reason: wheezing) diclofenac sodium 1 % gel 2 g topical BID ondansetron 4 mg tablet,disintegrating 4 mg PO BID PRN (Reason: nausea and vomiting) carvedilol 6.25 mg tablet 1 tab PO BID Spiriva with HandiHaler 18 mcg capsule, w/inhalation device 1 cap inhalation DAILY hydralazine 50 mg tablet 2 tab PO TID hydrocortisone 2.5 % cream with perineal applicator 1 appl [place] BID gabapentin 300 mg capsule 1 cap PO DAILY Changed polyethylene glycol 3350 [Miralax] 17 gram/dose powder 17 g PO DAILY Qty: 238 0RF Discharge Orders: Discharge Order (Routine); Ordered 04/30/22 Ordered By: Aracelis Zuleta Diet: Diabetic diet Activity on Discharge: As tolerated Stand Alone Forms: Patient Portal Discharge page Care Plan Goals: Abdominal pain resolved, after treatment for constipation recommend to take daily MiraLax Hypoxia resolved CT abdomen showed renal artery aneurysm recommend outpatient CTA for follow-up in next 1-2 weeks Incidental finding of endometrial thickening patient asymptomatic recommend outpatient pelvic ultrasound Health Concerns: Take all home medication as needed script of Benadryl given for intermittent itching. Plan of Treatment: Need outpatient pelvic ultrasound, need outpatient CTA for renal artery aneurysm, call primary care physician for an appointment in 1 week Assessment: As above
[2022-04-30 15:09] LABS: Glucose, Whole Blood 236 mg/dL (60-115)
== END 2022-04-30 12:17 | disposition home or self-care (01) | DRG 291 ==
LOC: HO.ED 06:39 → HO.EDOVER 14:46 → HO.IMC 19:25
PROVIDERS: Family Medicine; Internal Medicine; Physician Assistant Medical; Admitting Provider Nurse Practitioner Acute Care; Emergency Provider Emergency Medicine; PCP Internal Medicine; Visit Provider Hospitalist
DX: I13.2 Hypertensive heart and chronic kidney disease with heart failure and with stage 5 chronic kidney disease, or end stage renal disease (principal); J96.01 Acute respiratory failure with hypoxia; N18.6 End stage renal disease; U07.1 COVID-19; F11.20 Opioid dependence, uncomplicated; F17.210 Nicotine dependence, cigarettes, uncomplicated; I50.32 Chronic diastolic (congestive) heart failure; K59.00 Constipation, unspecified; E11.22 Type 2 diabetes mellitus with diabetic chronic kidney disease; K21.9 Gastro-esophageal reflux disease without esophagitis; D63.1 Anemia in chronic kidney disease; J45.40 Moderate persistent asthma, uncomplicated; K52.89 Other specified noninfective gastroenteritis and colitis; I72.2 Aneurysm of renal artery; R93.89 Abnormal findings on diagnostic imaging of other specified body structures; Z99.81 Dependence on supplemental oxygen; Z91.15 Patient's noncompliance with renal dialysis; Z91.199 Patient's noncompliance with other medical treatment and regimen due to unspecified reason; Z99.2 Dependence on renal dialysis; Z79.4 Long term (current) use of insulin; Z79.51 Long term (current) use of inhaled steroids; Z79.82 Long term (current) use of aspirin; Z79.899 Other long term (current) drug therapy
CPT/HCPCS: 36415; 71045; 74177; 80048; 82947; 83880; 84145; 84484; 85025; 85027; 86140; 87635; 90999; 93005; 94640; 99285; J2405; Q9967

== ENCOUNTER 2022-04-30 16:09 | Emergency (ER) | payer OTHER, SELFPAY ==
--- NOTE | ~2022-04-30 | XR_ITS ---
EXAMINATION: XR KUB CLINICAL INDICATION: Reason for Exam Nausea COMPARISON: KUB 03/12/2022, CT abdomen pelvis 04/28/2022 TECHNIQUE: AP view of the abdomen. FINDINGS: Lines or devices: Upper abdominal surgical clips. Interval improvement in colonic stool burden with persistent large volume of residual stool presumed to be in the redundant rectosigmoid colon. Nonobstructive bowel gas pattern. Again seen is a peripherally calcified lesion in the right upper quadrant measuring approximately 2 cm which may reflect a peripherally calcified renal artery aneurysm. Retained contrast is noted within the urinary bladder. XR/XR KUB IMPRESSION: Interval improvement in colonic stool burden with persistent large volume of residual stool presumed to be in the redundant rectosigmoid colon. Again seen is a peripherally calcified lesion in the right upper quadrant measuring approximately 2 cm which may reflect a peripherally calcified renal artery aneurysm.
--- NOTE | 2022-04-30 16:23 | ED.ABDPAIN ---
HPI - Abdominal Pain General Chief Complaint: Nausea/Vomiting/Diarrhea Stated Complaint: fall Time Seen by Provider: 04/30/22 16:20 Source: patient, EMS, RN notes reviewed and old records reviewed Mode of arrival: EMS Limitations: language barrier History of Present Illness HPI narrative: 67 years old female with past medical history of Congestive heart failure, end-stage renal disease, dialysis Sunday and Sunday, anasarca, ascites, diabetes, hypertension, asthma, COPD, anemia, polysubstance abuse is here today for complaining of nausea and constipation. Patient does have a history of being noncompliant with dialysis due to inability of getting a ride to dialysis. Patient was just discharged today from the hospital. She states that she got home and was feeling nauseous. Not unable to have a bowel movement, unable to eat. States that she was feeling dizzy. Denies any chest pain, PND, SOB with or without exertion, presyncope, syncope. MD elicited complaint: abdominal pain Pertinent past history: constipation Onset (ago): day(s) Pain Consistency: intermittent Severity: moderate Pain scale (0-10): 9 Related Data Home Medications Medication Instructions Recorded Confirmed buprenorphine 8 mg-naloxone 2 mg 2 strip sublingual DAILY 10/22/20 04/24/22 sublingual film (Suboxone) diltiazem HCl 180 mg 360 mg PO DAILY 10/22/20 04/24/22 capsule,extended release 24 hr bumetanide 2 mg tablet 2 mg PO DAILY 04/15/21 04/24/22 fluticasone propionate 110 1 puff inhalation BID 04/15/21 04/24/22 mcg/actuation HFA aerosol inhaler (Flovent HFA) melatonin 5 mg tablet 5 mg PO BEDTIME PRN Sleep 04/15/21 04/24/22 pantoprazole 40 mg tablet,delayed 40 mg PO DAILY 04/15/21 04/24/22 release vitamin B comp no.3-folic acid 1 1 tab PO DAILY 04/15/21 04/24/22 mg-vit C 60 mg-biotin 300 mcg tablet ([employer]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-[facility] Rx) sennosides 8.6 mg tablet (senna) 1 - 2 tab PO BEDTIME PRN 05/11/21 04/24/22 constipation acetaminophen 500 mg tablet 500 mg PO Q8H PRN Pain, Mild 06/10/21 04/24/22 clonidine HCl 0.2 mg tablet 0.2 mg PO BID 07/27/21 04/24/22 insulin aspart U-100 100 unit/mL 1 sliding scale dose subcut 07/27/21 04/24/22 subcutaneous cartridge (Novolog USEASDIRECTD PenFill U-100 Insulin aspart) insulin glargine 100 unit/mL 7 unit subcut DAILY 09/18/21 04/24/22 subcutaneous solution (Lantus U-100 Insulin) albuterol sulfate 2.5 mg/3 mL 3 ml inhalation TID PRN Shortness 10/11/21 04/24/22 (0.083 %) solution for nebulization Of Breath aspirin 81 mg tablet,delayed 1 tab PO DAILY 10/11/21 04/24/22 release albuterol sulfate 90 mcg/actuation 2 puff inhalation Q4-6H PRN 01/31/22 04/24/22 aerosol inhaler (Ventolin HFA) wheezing diclofenac sodium 1 % topical gel 2 g topical BID 03/09/22 04/24/22 ondansetron 4 mg disintegrating 4 mg PO BID PRN nausea and vomiting 03/09/22 04/24/22 tablet carvedilol 6.25 mg tablet 1 tab PO BID 04/24/22 04/24/22 gabapentin 300 mg capsule 1 cap PO DAILY 04/24/22 04/24/22 hydralazine 50 mg tablet 2 tab PO TID 04/24/22 04/24/22 hydrocortisone 2.5 % topical cream 1 appl SD BID 04/24/22 04/24/22 with perineal applicator tiotropium bromide 18 mcg capsule 1 cap inhalation DAILY 04/24/22 04/24/22 with inhalation device (Spiriva with HandiHaler) Previous Rx's Medication Instructions Recorded amlodipine 10 mg tablet 10 mg PO BEDTIME #30 tabs 03/07/21 isosorbide mononitrate 30 mg 30 mg PO DAILY #30 tabs 09/20/21 tablet,extended release 24 hr docusate sodium 100 mg capsule 100 mg PO BID PRN Constipation #30 12/04/21 (Colace) caps diphenhydramine HCl 25 mg capsule 25 mg PO DAILY PRN allergy 04/30/22 (Benadryl) symptoms #30 caps docusate sodium 100 mg capsule 200 mg PO DAILY #60 caps 04/30/22 polyethylene glycol 3350 17 17 g PO DAILY #238 grams 04/30/22 gram/dose oral powder (Miralax) sennosides 8.6 mg tablet (Senokot) 17.2 mg PO BEDTIME #60 tabs 04/30/22 Allergies Allergy/AdvReac Type Severity Reaction Status Date / Time No Known Allergies Allergy Mild NOT Verified 04/14/22 01:40 APPLICABLE Review of Systems Review of Systems Constitutional : No Weight loss, No Fever, Chills, No Night Sweats, No Fatigue, No Malaise ENT/Mouth : No Hearing loss, No Ear Pain, No Nasal Congestion, No Sinus Pain, No Hoarseness, No sore throat, No Rhinorrhea, No Swallowing Difficulty Eyes: No Eye Pain, No Swelling, No Redness, Cardiovascular : No Chest Pain, No SOB, No Dyspnea on Exertion, No Orthopnea, No Edema, No Palpitations Respiratory : No Cough, No Sputum, No Wheezing, No Smoke Exposure, No Dyspnea Gastrointestinal : Nausea, No Vomiting, No Diarrhea, Constipation, abdominal bloating, No Hematochezia, No Melena Genitourinary : no irregular bleeding, dialysis patient Skin : No Skin Lesions, No rash Neuro : No Weakness, No Numbness, No Paresthesias, No Loss of Consciousness, No Dizziness, No Headache Yes all other systems are reviewed and are negative [facility] Past Medical History Medical History (Updated 04/30/22 @ 18:44 by Ivana Connell [facility]) Acute exacerbation of chronic obstructive pulmonary disease (COPD) Acute GI bleeding Anasarca Anemia in chronic kidney disease Ascites Constipation Diabetes mellitus End stage renal disease on dialysis Essential hypertension Heart failure with preserved ejection fraction Hypertrophic cardiomyopathy Ischemic colitis Opioid withdrawal Surgical History No pertinent past surgical history Family History Family History Other Hypertension Social History Social History Household Members: None Housing: House Do you presently have visiting nurse or other home services: Yes ([facility]) Unable to assess alcohol history related to: Unknown Alcohol intake: never Patient Tobacco Use Status: Current everyday Tobacco user Tobacco use type: Cigarette Cigarette Packs Per Day: 1 Cigarettes Per Day: 3 Years Smoked: 18 Smoked in Last 30 Days: No e-Cigarette/Vaping Use: Never Used Second Hand Smoke Exposure: No Substance Use Type: Heroin Advance Directives: Yes Advance Directives on File: Yes Advance Directives Date on File: 04/20/21 service: No Current occupational status: unemployed and disabled Physical Exam ED Vital Signs: Vital Signs - 24 hr 04/30/22 16:31 04/30/22 16:34 Temperature 98.0 F 98.0 F Pulse Rate 74 Respiratory Rate 14 14 Blood Pressure 151/65 H 151/65 H Pulse Oximetry 90 L Oxygen Delivery Method Room Air BMI result Body Mass Index 30.9 Const General: cooperative, alert and awake Nutritional Appearance: average body habitus Orientation/consciousness: patient oriented x3 Limitations: language barrier HENMT Head: Yes normal to inspection, Yes normocephalic and Yes atraumatic Neuro General: patient oriented x3 Course Course Course Narrative: 67 years old female with past medical history of Congestive heart failure, end-stage renal disease, dialysis Sunday and Sunday, anasarca, ascites, diabetes, hypertension, asthma, COPD, anemia, polysubstance abuse is here today for complaining of nausea and constipation. Patient does have a history of being noncompliant with dialysis due to inability of getting a ride to dialysis. Patient was just discharged today from the hospital. She states that she got home and was feeling nauseous. Not unable to have a bowel movement, unable to eat. States that she was feeling dizzy. Denies any chest pain, PND, SOB with or without exertion, presyncope, syncope. Will recheck her labs, do KUB. Medicate with Zofran Reevaluation(s) Reevaluation #1: Patient is feeling better, reports that she is hungry and is asking for food. X-ray shows constipation. Will medicate patient with Senokot and Colace, send pt home Medications Administered Discontinued Medications Generic Name Dose Route Start Last Admin Trade Name Freq PRN Reason Stop Dose Admin Docusate Sodium 200 mg 04/30/22 18:17 04/30/22 18:51 Docusate Sodium 100 Mg Capsule PO 04/30/22 18:18 200 mg ONCE ONE Administration Ondansetron HCl 4 mg 04/30/22 16:38 04/30/22 17:21 Ondansetron Hcl 4 Mg/2 Ml Vial IVPUSH 04/30/22 16:39 4 mg ONCE ONE Administration Senna 17.2 mg 04/30/22 18:17 04/30/22 18:51 Sennosides 8.6 Mg Tablet PO 04/30/22 18:18 17.2 mg ONCE ONE Administration Discharge Plan Discharge Clinical Impression: Nausea Constipation Qualifiers: Constipation type: chronic idiopathic constipation Qualified Code(s): K59.04 - Chronic idiopathic constipation Patient Disposition: Home, Self-Care Instructions: Constipation (ED) Additional Instructions: you were seen here today for constipation. please make sure that you take Senokot and Colace every day. You may take nausea medicine on as needed basis. Please call your primary care doctor for follow-up. You may return to emergency department if your symptoms will get worse or if he will have any other concerning symptoms. Prescriptions: New sennosides [Senokot] 8.6 mg tablet 17.2 mg PO BEDTIME Qty: 60 0RF docusate sodium 100 mg capsule 200 mg PO DAILY Qty: 60 0RF No Action buprenorphine-naloxone [Suboxone] 8-2 mg film 2 strip sublingual DAILY diltiazem HCl 180 mg capsule,extended release 24hr 360 mg PO DAILY acetaminophen 500 mg Tablet 500 mg PO Q8H PRN (Reason: Pain, Mild) clonidine HCl 0.2 mg tablet 0.2 mg PO BID insulin aspart U-100 [Novolog PenFill U-100 Insulin] 100 unit/mL Cartridge 1 sliding scale dose SUBCUT USEASDIRECTD Protocol: Insulin Correction Scale Less than or equal to 110 ---- Give (units): 0 111 to 150 Give (units): 0 151 to 200 Give (units): 4 201 to 250 Give (units): 6 251 to 300 Give (units): 8 301 to 350 Give (units): 10 Greater than 350 Give (units): 12 Call MD if Blood Glucose > : 350 docusate sodium [Colace] 100 mg capsule 100 mg PO BID PRN (Reason: Constipation) Qty: 30 0RF amlodipine 10 mg Tablet 10 mg PO BEDTIME Qty: 30 0RF Protocol: Hold for SBP< HOLD for SBP < : 90 Rx Instructions: replaces prior dose of 5 mg daily bumetanide 2 mg Tablet 2 mg PO DAILY pantoprazole 40 mg Tablet,Delayed Release (Dr/Ec) 40 mg PO DAILY melatonin 5 mg Tablet 5 mg PO BEDTIME PRN (Reason: Sleep) [employer]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-[facility] Rx 1-60-300 mg-mg-mcg Tablet 1 tab PO DAILY fluticasone propionate [Flovent HFA] 110 mcg/actuation Hfa Aerosol Inhaler 1 puff INHALATION BID sennosides [senna] 8.6 mg tablet 1 - 2 tab PO BEDTIME PRN (Reason: constipation) insulin glargine [Lantus U-100 Insulin] 100 unit/mL solution 7 unit subcut DAILY isosorbide mononitrate 30 mg Tablet Extended Release 24 Hr 30 mg PO DAILY Qty: 30 0RF Protocol: Hold for SBP< HOLD for SBP < : 90 albuterol sulfate 2.5 mg /3 mL (0.083 %) solution for nebulization 3 ml inhalation TID PRN (Reason: Shortness Of Breath) aspirin 81 mg tablet,delayed release (DR/EC) 1 tab PO DAILY albuterol sulfate [Ventolin HFA] 90 mcg/actuation HFA aerosol inhaler 2 puff INHALATION Q4-6H PRN (Reason: wheezing) diclofenac sodium 1 % gel 2 g topical BID ondansetron 4 mg tablet,disintegrating 4 mg PO BID PRN (Reason: nausea and vomiting) carvedilol 6.25 mg tablet 1 tab PO BID Spiriva with HandiHaler 18 mcg capsule, w/inhalation device 1 cap inhalation DAILY hydralazine 50 mg tablet 2 tab PO TID hydrocortisone 2.5 % cream with perineal applicator 1 appl SD BID gabapentin 300 mg capsule 1 cap PO DAILY diphenhydramine HCl [Benadryl] 25 mg capsule 25 mg PO DAILY PRN (Reason: allergy symptoms) Qty: 30 0RF polyethylene glycol 3350 [Miralax] 17 gram/dose powder 17 g PO DAILY Qty: 238 0RF
[2022-04-30 16:31] VITALS: BP 151/65; PULSE 74; RESP 14; TEMP 36.7; O2SAT 90; BMI 30.9
[2022-04-30 16:34] VITALS: BP 151/65; RESP 14; TEMP 36.7
[2022-04-30] MEDS: ondansetron HCL 4 MG/2 ML VIAL IVPUSH (17:21)
[2022-04-30 17:24] LABS: MANUAL DIFF FLAG NO
[2022-04-30 17:27] LABS: Basophils Percent Auto 0.1 % (0-2); Eosinophils Absolute Auto 0.1 X10*3/uL (0.0-0.4); Eosinophils Percent Auto 0.7 % (0-4); Hematocrit 35.1 % (37.0-47.0); Hemoglobin 11.8 g/dl (12.0-16.0); Imm Gran Abs Auto 0.05 X10*3/uL (0.00-0.03); Imm Gran Pct Auto 0.6 % (0.0-0.4); Lymphocytes Absolute Auto 0.5 X10*3/uL (1.2-4.9); Lymphocytes Percent Auto 5.7 % (20-40); Mean Corpuscular HGB Conc 33.6 g/dl (31.0-35.0); Mean Corpuscular Volume 89.3 fL (80.0-98.0); Mean Platelet Volume 9.3 fL (9.4-12.3); Monocytes Absolute Auto 0.5 X10*3/uL (0.1-1.2); Monocytes Percent Auto 5.3 % (2-11); Neutrophils Absolute Auto 7.9 x10*3/uL (2.0-8.3); Neutrophils Percent Auto 87.6 % (45-73); Platelet Count 231 X10*3/uL (160-400); Red Blood Count 3.93 X10*6/uL (4.20-5.50); Red Cell Distribution Width 14.7 % (11.0-16.0)
[2022-04-30 17:48] LABS: Alanine Aminotransferase 27 U/L (0-31); Albumin Level 4.6 g/dL (3.5-5.0); Alkaline Phosphatase 245 U/L (39-117); Anion Gap 23 (12-20); Aspartate Amino Transferase 32 U/L (5-31); Bilirubin Total 0.5 mg/dL (0.0-1.0); Blood Urea Nitrogen 26 mg/dL (9-16); Calcium 9.1 mg/dL (8.4-10.2); Carbon Dioxide 25 mmol/L (22-29); Chloride 87 mmol/L (96-108); Creatinine Clr Calc Pharmacy 9.7; Estimated Glomerular Filt Rate 7; Glucose Random 190 mg/dL (60-115); Lipase 12 U/L (8-78); Magnesium 2.2 mg/dL (1.6-2.6); Potassium 4.6 mmol/L (3.3-5.1); Sodium 130 mmol/L (135-145); Total Protein 7.7 g/dL (6.5-8.0)
[2022-04-30 18:07] LABS: Influenza A PCR NEGATIVE (Negative); Influenza B PCR NEGATIVE (Negative); Resp Syncy Virus RNA Qual PCR NEGATIVE (Negative); SARS COV2 PCR INHOUSE POSITIVE (Negative)
--- NOTE | 2022-04-30 18:16 | PC.NURSE ---
Pt alert and oriented. Discharged today from [place] [facility] Pt states she got home and was unable to keep foods down, vomiting. Upon arrival, pt requesting water and food stating that she is hungry.
[2022-04-30] MEDS: Docusate Sodium 100 MG CAPSULE 200 MG PO (18:51)
[2022-04-30] MEDS: Sennosides 8.6 MG TABLET 17.2 MG PO (18:51)
--- NOTE | 2022-04-30 20:14 | PC.NURSE ---
Assumed care of pt. at 1900. Pt. at this time is pending an ambulance ride back home. Pt. asking for chips at this time and asking about her ambulance. The ambulance ride is booked with an estimated arrival time of [id number].
== END 2022-04-30 22:46 | disposition home or self-care (01) ==
PROVIDERS: Nurse Practitioner Family; Physician Assistant; Emergency Provider Internal Medicine; PCP Internal Medicine
DX: K59.04 Chronic idiopathic constipation (principal); R11.2 Nausea with vomiting, unspecified; F17.210 Nicotine dependence, cigarettes, uncomplicated; Z20.822 Contact with and (suspected) exposure to COVID-19; Z71.6 Tobacco abuse counseling; Z79.899 Other long term (current) drug therapy
CPT/HCPCS: 0241U; 74018; 80053; 83690; 83735; 85025; 96374; 99284; J2405

== ENCOUNTER 2022-05-07 18:12 | Inpatient (IN) | payer OTHER, SELFPAY ==
--- NOTE | ~2022-05-07 | XR_ITS ---
EXAMINATION: XR CHEST CLINICAL INFORMATION: Shortness of breath COMPARISON: Chest x-ray 04/24/2022 TECHNIQUE: Frontal view of the chest was obtained. FINDINGS: Right IJ dual-lumen catheter tip terminates in the upper right atrium. No dense airspace consolidation. No definite pleural effusion. Cardiomediastinal silhouette is unchanged. Prominent pulmonary vascular markings, but improved since prior suggesting pulmonary vascular congestion and possible minimal early interstitial edema with slightly increased reticular markings in the lower lungs. No acute osseous injury. XR/XR chest 1V IMPRESSION: 1. Mild pulmonary vascular congestion and possible minimal interstitial edema. 2. No airspace consolidation or definite pleural effusions.
[2022-05-07 18:19] VITALS: BP 142/72; PULSE 73; O2SAT 96; BMI 24.1
--- NOTE | 2022-05-07 18:25 | ED.GENADULT ---
HPI - General Adult General Chief complaint: Dyspnea Stated complaint: SOB Time Seen by Provider: 05/07/22 18:25 Source: patient, EMS and digester hand Mode of arrival: EMS Limitations: language barrier History of Present Illness HPI narrative: Patient is a 67 year old assigned female at with a history of ESRD on dialysis, COPD on 2lpm oxygen via nasal canula, asthma, and CHF presenting to the emergency department today with increased shortness of breath. Patient states that she was diagnosed with COVID-19 6 days ago. Patient states that today she was having increased shortness of breath and after 2 duonebs she wasn't feeling any better. Patient denies any dizziness, lightheadedness, abdominal pain, nausea, vomiting, fever, chills, blurry vision, double vision, loss of vision, chest pain, back pain, night sweats, blood in her stool, syncope or a near syncopal episode, recent trauma or falls, bowel incontinence, bladder incontinence, bowel retention, bladder retention, or any other complaints at this time. Patient states that she does not make urine. Onset (ago): hour(s) Severity: moderate Severity scale (1-10): 4 Relieving factors: none Exacerbating factors: none Associated symptoms: shortness of breath Treatments prior to arrival: other (duonebs) Related Data Home Medications Medication Instructions Recorded Confirmed buprenorphine 8 mg-naloxone 2 mg 2 strip sublingual DAILY 10/22/20 05/08/22 sublingual film (Suboxone) diltiazem HCl 180 mg 360 mg PO DAILY 10/22/20 05/08/22 capsule,extended release 24 hr bumetanide 2 mg tablet 2 mg PO DAILY 04/15/21 05/08/22 fluticasone propionate 110 1 puff inhalation BID 04/15/21 05/08/22 mcg/actuation HFA aerosol inhaler (Flovent HFA) melatonin 5 mg tablet 5 mg PO BEDTIME PRN Sleep 04/15/21 05/08/22 pantoprazole 40 mg tablet,delayed 40 mg PO DAILY 04/15/21 05/08/22 release vitamin B comp no.3-folic acid 1 1 tab PO DAILY 04/15/21 05/08/22 mg-vit C 60 mg-biotin 300 mcg tablet ([facility]) sennosides 8.6 mg tablet (senna) 1 - 2 tab PO BEDTIME PRN 12/22/21 12/19/22 constipation acetaminophen 500 mg tablet 500 mg PO Q8H PRN Pain, Mild 06/10/21 05/08/22 clonidine HCl 0.2 mg tablet 0.2 mg PO BID 07/27/21 05/08/22 insulin aspart U-100 100 unit/mL 1 sliding scale dose subcut 07/27/21 05/08/22 subcutaneous cartridge (Novolog USEASDIRECTD PenFill U-100 Insulin aspart) insulin glargine 100 unit/mL 7 unit subcut DAILY 09/18/21 05/08/22 subcutaneous solution (Lantus U-100 Insulin) aspirin 81 mg tablet,delayed 1 tab PO DAILY 10/11/21 05/08/22 release albuterol sulfate 90 mcg/actuation 2 puff inhalation Q4-6H PRN 01/31/22 05/08/22 aerosol inhaler (Ventolin HFA) wheezing diclofenac sodium 1 % topical gel 2 g topical BID 03/09/22 05/08/22 ondansetron 4 mg disintegrating 4 mg PO BID PRN nausea and vomiting 03/09/22 05/08/22 tablet carvedilol 6.25 mg tablet 1 tab PO BID 04/24/22 05/08/22 gabapentin 300 mg capsule 1 cap PO DAILY 04/24/22 05/08/22 hydralazine 50 mg tablet 2 tab PO TID 04/24/22 05/08/22 hydrocortisone 2.5 % topical cream 1 appl GA BID 04/24/22 05/08/22 with perineal applicator tiotropium bromide 18 mcg capsule 1 cap inhalation DAILY 04/24/22 05/08/22 with inhalation device (Spiriva with HandiHaler) albuterol sulfate 2.5 mg/3 mL 1 amp inhalation TID PRN Shortness 05/08/22 05/08/22 (0.083 %) solution for nebulization Of Breath Previous Rx's Medication Instructions Recorded amlodipine 10 mg tablet 10 mg PO BEDTIME #30 tabs 03/07/21 isosorbide mononitrate 30 mg 30 mg PO DAILY #30 tabs 09/20/21 tablet,extended release 24 hr docusate sodium 100 mg capsule 100 mg PO BID PRN Constipation #30 12/04/21 (Colace) caps diphenhydramine HCl 25 mg capsule 25 mg PO DAILY PRN allergy 04/30/22 (Benadryl) symptoms #30 caps polyethylene glycol 3350 17 17 g PO DAILY #238 grams 04/30/22 gram/dose oral powder (Miralax) Allergies Allergy/AdvReac Type Severity Reaction Status Date / Time No Known Allergies Allergy Mild NOT Verified 04/14/22 01:40 APPLICABLE Review of Systems Constitutional: Constitutional: Reports no additional constitutional complaints, Denies chills, Denies fever(s) and Denies night sweats Eyes: Eyes: Reports no additional eye complaints, Denies blurry vision, Denies change in vision, Denies diplopia, Denies eye discharge, Denies loss of vision and Denies eye pain ENT: Denies dizziness Cardiovascular: Cardiovascular: Reports no additional cardiovascular complaints, Denies chest pain, Denies lightheadedness, Denies Loss of Consciousness and Reports dyspnea Respiratory: Respiratory: Reports no additional respiratory complaints and Reports dyspnea Gastrointestinal: Gastrointestinal: Reports no additional gastrointestinal complaints, Denies abdominal pain, Denies melena, Denies hematochezia, Denies change in bowel habits and Denies change in stool character Genitourinary: Genitourinary: Denies hematuria, Denies urinary frequency, Denies dysuria, Denies urinary incontinence, Denies urinary hesitancy and Denies urinary urgency Musculoskeletal: Musculoskeletal: Reports no additional musculoskeletal complaints, Denies numbness and Denies tingling Neurologic: Denies dizziness, Denies loss of vision, Denies numbness and Denies tingling Psychiatric: Psychiatric: Reports no additional psychiatric complaints Endocrine: Endocrine: Reports no additional endocrine complaints Hematologic/Lymphatic: Hematologic/Lymphatic: Reports no additional hematologic/lymphatic complaints Allergic/Immunologic: Allergic/Immunologic: Reports no additional allergic/immunologic complaints [facility] Past Medical History Attestation statement: The following information was validated with the patient. Source: old records reviewed and nursing notes reviewed Medical History (Updated 05/18/22 @ 00:03 by Farideh Jones) Acute exacerbation of chronic obstructive pulmonary disease (COPD) Acute GI bleeding Anasarca Anemia in chronic kidney disease Ascites Asthma with COPD with exacerbation Constipation COVID COVID-19 virus infection Diabetes mellitus End stage renal disease on dialysis ESRD (end stage renal disease) Essential hypertension Heart failure with preserved ejection fraction Hypertrophic cardiomyopathy Ischemic colitis Opioid withdrawal Pulmonary congestion Surgical History No pertinent past surgical history Family History Family History Other Hypertension Social History Social History Household Members: None Housing: Apartment Do you presently have visiting nurse or other home services: Yes Unable to assess alcohol history related to: Unknown Alcohol intake: never Patient Tobacco Use Status: Current everyday Tobacco user Tobacco use type: Cigarette Cigarette Packs Per Day: 1 Cigarettes Per Day: 3 Years Smoked: 18 e-Cigarette/Vaping Use: Never Used Second Hand Smoke Exposure: No Substance Use Type: Heroin Advance Directives Date on File: 04/20/21 service: No Current occupational status: unemployed and disabled Physical Exam ED Vital Signs: Vital Signs - 24 hr 05/07/22 18:54 05/07/22 18:54 05/07/22 19:59 Temperature Pulse Rate 94 Respiratory Rate 25 H 14 Blood Pressure Pulse Oximetry Oxygen Delivery Method Oxygen Flow Rate 05/07/22 20:00 05/07/22 20:17 05/07/22 21:38 Temperature 97.8 F Pulse Rate 63 65 63 Respiratory Rate 12 12 16 Blood Pressure 119/62 158/63 H Pulse Oximetry 96 90 L 99 Oxygen Delivery Method Room Air Room Air Nasal Cannula Oxygen Flow Rate 3 BMI result Body Mass Index 24.1 Const General: cooperative, no acute distress, alert and awake Nutritional Appearance: well nourished Orientation/consciousness: patient oriented x3 Limitations: no limitations [facility] Head: Yes normal to inspection and Yes atraumatic Ears: hearing grossly normal bilaterally and external ears normal General nose exam: Normal external nose present, no nasal discharge noted and no epistaxis Face and sinus: Yes normal facial exam, No abrasion and No laceration Mouth: Normal oral and palatal mucosa present, no drooling and no muffled voice Eyes General: appearance normal, both eyes and all related structures Periorbital: periorbital findings normal Eyelids: Yes eyelids normal Conjunctivae: conjunctivae normal Pupils: Equal, round and reactive pupils present EOM: EOMs intact bilaterally Neck Neck: Yes normal visual inspection, Yes full ROM and Yes no lymphadenopathy Chest Chest palpation & inspection: normal inspection of the chest Resp Effort & Inspection: able to speak in complete sentences, Actively coughing Quality: dry and labored Auscultation: rhonchi throughout Cardio Rate: regular rate Rhythm: regular rhythm GI Inspection: Yes normal to inspection Palpation (GI): Soft to palpation, not firm, nontender and no guarding Neuro General: patient oriented x3 and moves all extremities Cranial nerves: Yes Equal, round and reactive pupils present Cognition (Neuro): normal cognition Motor exam (neuro): 5/5 motor strength present throughout Sensory Exam: Normal double simultaneous stimulation for sensation Coordination: [id number] test normal Extrem General: Yes normal to inspection, Yes full ROM and Yes capillary refill normal Psych Appearance: grossly normal Mental Status: mental status grossly normal Affect: normal affect Attitude: cooperative Thought process: Normal thought process present Thought content: Normal thought content present Insight: Good insight present (Psych) Medications Administered Discontinued Medications Generic Name Dose Route Start Last Admin Trade Name Freq PRN Reason Stop Dose Admin Acetaminophen 650 mg 05/07/22 23:23 05/09/22 23:45 Acetaminophen 325 Mg Tablet PO 650 mg Q6H PRN Administration Pain, Mild (Pain Scale 1-3) Albuterol/Ipratropium 3 ml 05/07/22 23:18 05/09/22 05:20 Albuterol/Iprat 2.5/0.5mg 3 Ml Ampul.Neb INHALE 3 ml RQ4H PRN Administration Shortness of Breath/Wheezing Albuterol/Ipratropium 3 ml 05/08/22 08:00 05/10/22 08:30 Albuterol/Iprat 2.5/0.5mg 3 Ml Ampul.Neb INHALE 3 ml RQ4H WHILE AWAKE PHAN Administration Amlodipine Besylate 10 mg 05/08/22 21:00 05/09/22 22:04 Amlodipine Besylate 10 Mg Tablet PO 10 mg BEDTIME PHAN Administration Protocol Aspirin 81 mg 05/09/22 09:00 05/10/22 09:57 Aspirin Enteric Coated 81 Mg Tablet.Dr PO 81 mg DAILY PHAN Administration Bumetanide 2 mg 05/08/22 11:00 05/10/22 09:57 Bumetanide 1 Mg Tablet PO 2 mg DAILY PHAN Administration Protocol Buprenorphine/Naloxone 2 film 05/08/22 11:00 05/10/22 09:54 Buprenorphine/Naloxone 8/2 Mg Film SUBLINGUAL 2 film DAILY PHAN Administration Carvedilol 6.25 mg 05/08/22 11:00 05/10/22 09:56 Carvedilol 6.25 Mg Tablet PO 6.25 mg BID [facility] Administration Protocol Clonidine HCl 0.2 mg 05/08/22 11:00 05/10/22 09:58 Clonidine Hcl 0.2 Mg Tablet PO 0.2 mg BID [facility] Administration Protocol Albuterol Sulfate 2.5 mg/ 0 mg 05/07/22 18:46 05/07/22 18:58 Albuterol/Ipratropium 3 ml INHALE 05/07/22 18:47 2.5 each ONCE ONE Administration Diltiazem HCl 360 mg 05/08/22 11:00 05/10/22 09:57 Diltiazem Hcl Cd 180 Mg Cap.Er.24h PO 360 mg DAILY [facility] Administration Protocol Fentanyl 25 mcg 05/07/22 18:28 05/07/22 19:11 Fentanyl Citrate/Pf 100 Mcg/2 Ml Vial IVPUSH 05/07/22 18:29 25 mcg ONCE ONE Administration Protocol Gabapentin 300 mg 05/08/22 11:00 05/10/22 09:56 Gabapentin 300 Mg Capsule PO 300 mg DAILY [facility] Administration Heparin Sodium (Porcine) 5,000 unit 05/07/22 23:30 05/10/22 09:55 Heparin Sodium,Porcine 5,000 Unit/Ml Vial SUBCUT 5,000 unit Q12H [facility] Administration Hydralazine HCl 100 mg 05/08/22 11:00 05/10/22 09:57 Hydralazine Hcl 50 Mg Tablet PO 100 mg TID [facility] Administration Protocol Hydrocortisone 1 appl 05/08/22 11:00 05/10/22 10:06 Hydrocortisone 2.5 % Rectal Cr 30 Gm Tube GA Not Given BID [facility] Insulin Glargine 7 unit 05/08/22 11:00 05/10/22 09:55 Insulin Glargine,Hum.Rec.Anlog 100 Unit/Ml 10 Ml Vial SUBCUT 7 unit DAILY [facility] Administration Insulin Human Lispro 0 unit 05/08/22 07:30 05/10/22 09:55 Insulin Lispro 100 Unit/Ml 3 Ml Vial SUBCUT 6 unit QIDACHS [facility] Administration Protocol Insulin Human Lispro 10 unit 05/08/22 06:29 05/08/22 06:33 Insulin Lispro 100 Unit/Ml 3 Ml Vial SUBCUT 05/08/22 06:30 10 unit ONCE ONE Administration Isosorbide Mononitrate 30 mg 05/08/22 11:00 05/10/22 09:56 Isosorbide Mononitrate 30 Mg Tab.Er.24h PO 30 mg DAILY PHAN Administration Protocol Lorazepam 1 mg 05/09/22 16:25 05/10/22 09:58 Lorazepam 1 Mg Tablet PO 1 mg Q6H PRN Administration anxiety Methylprednisolone Sodium Succinate 60 mg 05/07/22 18:28 05/07/22 19:12 Methylprednisolone Sod Succ 125 Mg/2 Ml Vial IVPUSH 05/07/22 18:29 60 mg ONCE ONE Administration Methylprednisolone Sodium Succinate 40 mg 05/08/22 06:00 05/09/22 17:34 Methylprednisolone Sod Succ 40 Mg/Ml Vial IVPUSH Not Given Q12H PHAN Multivitamins/Vitamin C 1 tab 05/08/22 11:00 05/10/22 09:58 Multivitamin Tablet PO 1 tab DAILY PHAN Administration Nicotine 7 mg 05/09/22 14:15 05/10/22 09:54 Nicotine 7 Mg Patch.Td24 TRANSDERMA 7 mg DAILY PHAN Administration Omeprazole 20 mg 05/09/22 09:00 05/10/22 09:57 Omeprazole 20 Mg Capsule.Dr PO 20 mg DAILY PHAN Administration Polyethylene Glycol 17 gm 05/08/22 11:00 05/10/22 09:55 Polyethylene Glycol 3350 17 Gm Powd.Pack PO 17 gm DAILY PHAN Administration Prednisone 40 mg 05/10/22 09:00 05/10/22 09:57 Prednisone 20 Mg Tablet PO 40 mg DAILY PHAN Administration Sodium Chloride 3 ml 05/08/22 00:00 05/10/22 09:54 0.9 % Sodium Chloride Flush 3 Ml Syringe IVFLUSH 3 ml QSHIFT PHAN Administration Sodium Zirconium Cyclosilicate 10 gm 05/08/22 08:30 05/08/22 10:52 Sodium Zirconium Cyclosilicate 10 Gm Powd.Pack PO 05/08/22 08:31 10 gm ONCE ONE Administration Sodium Zirconium Cyclosilicate 5 gm 05/09/22 17:32 05/09/22 18:31 Sodium Zirconium Cyclosilicate 5 Gm Powd.Pack PO 05/09/22 17:33 5 gm ONCE ONE Administration Tiotropium [place] 1 puff 05/08/22 11:00 05/10/22 08:30 Tiotropium [place] 18 Mcg Cap.W.Dev INHALE 1 puff DAILY PHAN Administration Medical Decision Making Medical Decision Making [facility] Narrative: Patient is a 67 year old assigned female at with a history of ESRD on dialysis, COPD on 2lpm oxygen via nasal cannula, asthma, and CHF presenting to the emergency department today with shortness of breath. Patient's physical exam showed labored breathing with diffuse rhonci. Patient's blood work showed a CR of 5.90, BNP of 2369, and initial troponin of 31.2 which are all consistent with the patient's baseline. Patient's EKG was unremarkable. Patient's chest x-ray showed mild pulmonary vascular congestion and possible minimal interstitial edema. Patient was initially placed on CPAP and given a duoneb which decreased her work of breathing significantly. Patient was then transitioned back to oxygen via nasal cannula. Patient's lowest oxygen saturation was 90% while in the department. Patient's clinical presentation is most consistent with chronic lung disease exacerbation, likely secondary to a COVID-19 infection. Patient's clinical presentation is not consistent with sepsis. I spoke to the hospitalist who agreed to admission. I explained my physical exam findings as well as all test results to the patient. I answered all questions asked by the patient. Patient verbalized agreement and understanding with this treatment plan and admission. Differential Diagnosis Differential Diagnoses: The differential diagnosis associated with the presentation includes difficulty breathing, shortness of breath, COVID-19 Consult Healthcare Provider Management of the patient was discussed with: Hospitalist (agreed to admission) Lab Data [facility] Lab Attestation statement: I reviewed the patient's lab results. Result Diagrams: 05/08/22 05:45 05/10/22 07:14 Labs: Lab Results 05/07/22 05/07/22 05/07/22 Range/Units 18:51 18:51 18:51 WBC (4.8-10.8) X10*3/uL RBC (4.20-5.50) X10*6/uL Hgb (12.0-16.0) g/dl Hct (37.0-47.0) % MCV (80.0-98.0) fL MCH (27.0-33.0) pg MCHC (31.0-35.0) g/dl RDW (11.0-16.0) % Plt Count (160-400) X10*3/uL MPV (9.4-12.3) fL Immature Gran % (Auto) (0.0-0.4) % Neut % (Auto) (45-73) % Lymph % (Auto) (20-40) % [place] % (Auto) (2-11) % Eos % (Auto) (0-4) % Baso % (Auto) (0-2) % Lymph # (Auto) (1.2-4.9) X10*3/uL [place] # (Auto) (0.1-1.2) X10*3/uL Eos # (Auto) (0.0-0.4) X10*3/uL Baso # (Auto) (0.0-0.2) X10*3/uL Abs Immat Gran (auto) (0.00-0.03) X10*3/uL Absolute Neuts (auto) (2.0-8.3) x10*3/uL Absolute Nucleated RBC (0.0-0.012) X10*3/uL Nucleated RBC % (auto) (0.0-0.2) /100WBC VBG pH (7.32-7.43) VBG pCO2 mmHg VBG pO2 mmHg VBG HCO3 (22-26) mmol/L VBG O2 Saturation % VBG Base Excess mmol/L Sodium 133 L (135-145) mmol/L Potassium 4.6 (3.3-5.1) mmol/L Chloride 91 L (96-108) mmol/L Carbon Dioxide 27 (22-29) mmol/L Anion Gap 20 (12-20) BUN 23 H (9-16) mg/dL Creatinine 5.39 H* (0.5-1.4) mg/dL Estim Creat Clear Calc 8.3 Estimated GFR 8 Random Glucose 171 H (60-115) mg/dL Calcium 9.3 (8.4-10.2) mg/dL Magnesium 2.2 (1.6-2.6) mg/dL Total Bilirubin 0.4 (0.0-1.0) mg/dL AST 26 (5-31) U/L ALT 13 (0-31) U/L Alkaline Phosphatase 189 H (39-117) U/L Troponin I High Sens 31.2 H (<3.5-17.0) ng/L B-Natriuretic Peptide (<100) pg/mL Total Protein 8.1 H (6.5-8.0) g/dL Albumin 4.2 (3.5-5.0) g/dL Influenza Type A (PCR) NEGATIVE (Negative) Influenza Type B (PCR) NEGATIVE (Negative) RSV RNA Qual (PCR) NEGATIVE (Negative) SARS-CoV-2 RNA (RT-PCR) POSITIVE A (Negative) 05/07/22 05/07/22 05/07/22 Range/Units 18:51 18:55 22:32 WBC 6.6 (4.8-10.8) X10*3/uL RBC 3.71 L (4.20-5.50) X10*6/uL Hgb 11.2 L (12.0-16.0) g/dl Hct 34.6 L (37.0-47.0) % MCV 93.3 (80.0-98.0) fL MCH 30.2 (27.0-33.0) pg MCHC 32.4 (31.0-35.0) g/dl RDW 14.4 (11.0-16.0) % Plt Count 260 (160-400) X10*3/uL MPV 9.0 L (9.4-12.3) fL Immature Gran % (Auto) 0.8 H (0.0-0.4) % Neut % (Auto) 89.5 H (45-73) % Lymph % (Auto) 5.3 L (20-40) % [place] % (Auto) 1.7 L (2-11) % Eos % (Auto) 2.4 (0-4) % Baso % (Auto) 0.3 (0-2) % Lymph # (Auto) 0.4 L (1.2-4.9) X10*3/uL [place] # (Auto) 0.1 (0.1-1.2) X10*3/uL Eos # (Auto) 0.2 (0.0-0.4) X10*3/uL Baso # (Auto) 0.0 (0.0-0.2) X10*3/uL Abs Immat Gran (auto) 0.05 H (0.00-0.03) X10*3/uL Absolute Neuts (auto) 6.0 (2.0-8.3) x10*3/uL Absolute Nucleated RBC 0.000 (0.0-0.012) X10*3/uL Nucleated RBC % (auto) 0.0 (0.0-0.2) /100WBC VBG pH 7.50 H (7.32-7.43) VBG pCO2 46 mmHg VBG pO2 61 mmHg VBG HCO3 36 H (22-26) mmol/L VBG O2 Saturation 90.0 % VBG Base Excess 12.1 mmol/L Sodium (135-145) mmol/L Potassium (3.3-5.1) mmol/L Chloride (96-108) mmol/L Carbon Dioxide (22-29) mmol/L Anion Gap (12-20) BUN (9-16) mg/dL Creatinine (0.5-1.4) mg/dL Estim Creat Clear Calc Estimated GFR Random Glucose (60-115) mg/dL Calcium (8.4-10.2) mg/dL Magnesium (1.6-2.6) mg/dL Total Bilirubin (0.0-1.0) mg/dL AST (5-31) U/L ALT (0-31) U/L Alkaline Phosphatase (39-117) U/L Troponin I High Sens (<3.5-17.0) ng/L B-Natriuretic Peptide 2369 H (<100) pg/mL Total Protein (6.5-8.0) g/dL Albumin (3.5-5.0) g/dL Influenza Type A (PCR) (Negative) Influenza Type B (PCR) (Negative) RSV RNA Qual (PCR) (Negative) SARS-CoV-2 RNA (RT-PCR) (Negative) Independent Interpretation I performed an independent interpretation of an: EKG Interpretation: Vent. Rate: 059 BPM ? ? Atrial Rate: 059 BPM P-R Int: 184 ms? QRS Dur: 096 ms QT Int: 444 ms ? ? ? P-R-T Axes: 050 -21 058 degrees QTc Int: 439 ms ? Sinus bradycardia Possible Left atrial enlargement Left ventricular hypertrophy (R in aVL , [place] product) Abnormal ECG When compared with ECG of 24-APR-2022 03:38, No significant change was found ? DD/ 193 Radiology Impression Discussion of test interpretation with radiology: I have reviewed the radiologist's reading. Radiologist Impression: EXAMINATION: XR CHEST CLINICAL INFORMATION: Shortness of breath COMPARISON: Chest x-ray 04/24/2022 TECHNIQUE: Frontal view of the chest was obtained. FINDINGS: Right IJ dual-lumen catheter tip terminates in the upper right atrium. No dense airspace consolidation. No definite pleural effusion. Cardiomediastinal silhouette is unchanged. Prominent pulmonary vascular markings, but improved since prior suggesting pulmonary vascular congestion and possible minimal early interstitial edema with slightly increased reticular markings in the lower lungs. No acute osseous injury. XR/XR chest 1V IMPRESSION: 1.? Mild pulmonary vascular congestion and possible minimal interstitial edema. 2.? No airspace consolidation or definite pleural effusions. Dictated By: Mike Noonan Signed By: Electronically signed by Mike?Saran 05/07/221910 Independent Historian Clinical information obtained from an independent historian. History obtained from or confirmed by: EMS Critical Care Time Critical Care Time Critical Care Time: Yes Total Critical Care Time: 30 Attestation: I spent 30 minutes of Critical Care Time with this patient. This does not include time spent on separately reported billable procedures. Discharge Plan Discharge Clinical Impression: ESRD (end stage renal disease), COVID, Asthma with COPD with exacerbation Patient Disposition: Admitted As Inpatient Interventions: Admission Worksheet (ED) Last Done: 05/08/22 09:17 Discharge Date/Time: 05/08/22 09:18
--- NOTE | 2022-05-07 18:28 | ECG_ITS ---
Test Reason : SOB Blood Pressure : / mmHG Vent. Rate : 059 BPM Atrial Rate : 059 BPM P-R Int : 184 ms QRS Dur : 096 ms QT Int : 444 ms P-R-T Axes : 050 -21 058 degrees QTc Int : 439 ms Sinus bradycardia Possible Left atrial enlargement Left ventricular hypertrophy ( R in aVL , [place] product ) Abnormal ECG When compared with ECG of 24-APR-2022 03:38, No significant change was found Referred By: Tiffanie Wolff Electronically Signed By:Charan Hankins
[2022-05-07 18:54] VITALS: PULSE 84; PULSE 94; RESP 25; O2SAT 99
[2022-05-07] MEDS: Albuterol Sulfate 2.5 MG, Albuterol/Iprat 2.5/0.5MG 3 ML 3 ML INHALE (18:58)
[2022-05-07 19:00] LABS: VBG Base Excess 12.1 mmol/L; VBG HCO3 36 mmol/L (22-26); VBG pCO2 46 mmHg; VBG pO2 61 mmHg
[2022-05-07 19:01] LABS: Venous Blood Gas Refer to POC result
[2022-05-07] MEDS: fentaNYL citrate/PF 100 MCG/2 ML VIAL 25 MCG IVPUSH (19:11)
[2022-05-07] MEDS: methylPREDNISolone Sod Succ 125 MG/2 ML VIAL 60 MG IVPUSH (19:12)
[2022-05-07 19:20] LABS: B Type Natriuretic Peptide 2369 pg/mL (<100)
[2022-05-07 19:25] LABS: Troponin-I High Sensitivity 31.2 ng/L (<3.5-17.0)
[2022-05-07 19:39] LABS: Influenza A PCR NEGATIVE (Negative); Influenza B PCR NEGATIVE (Negative); Resp Syncy Virus RNA Qual PCR NEGATIVE (Negative); SARS COV2 PCR INHOUSE POSITIVE (Negative)
--- NOTE | 2022-05-07 19:53 | PC.NURSE ---
Addendum entered by Gwendolyn Yousif RN 05/07/22 21:38: Pt currently on 3 LPM O2 via NC. Pt O2 remains at 99%. Addendum entered by Gwendolyn Yousif RN 05/07/22 20:12: RT was called to ER to discontinue CPAP. Pt took her mask off prior to RT coming, however pt O2 sat staying above 96% and respirations around 12. RT at bedside at this time. Pt given crackers. Original Note: I took over care of this pt at 1900. At time of report, RT was putting pt on CPAP. Pt is Swedish speaking only and presents to the ER with dyspnea. Pt already has an IV established in the right wrist which is patent and secured. Pt was placed on cardiac monitoring. Vital signs all WNL. After speaking with BRANDON Jacobs, it is my understanding that the pt will be on CPAP until approximately 2100 when we will try to take her off and see how she does. Pt was medicated per JUL. Pt reporting she is hungry and wants to take her mask off. It has been explained to her that the mask will stay on.
[2022-05-07 19:59] VITALS: RESP 14
[2022-05-07 20:00] VITALS: BP 119/62; PULSE 63; RESP 12; O2SAT 96
[2022-05-07 20:03] LABS: Alanine Aminotransferase 13 U/L (0-31); Albumin Level 4.2 g/dL (3.5-5.0); Alkaline Phosphatase 189 U/L (39-117); Anion Gap 20 (12-20); Aspartate Amino Transferase 26 U/L (5-31); Bilirubin Total 0.4 mg/dL (0.0-1.0); Blood Urea Nitrogen 23 mg/dL (9-16); Calcium 9.3 mg/dL (8.4-10.2); Carbon Dioxide 27 mmol/L (22-29); Chloride 91 mmol/L (96-108); Creatinine Clr Calc Pharmacy 8.3; Estimated Glomerular Filt Rate 8; Glucose Random 171 mg/dL (60-115); Magnesium 2.2 mg/dL (1.6-2.6); Potassium 4.6 mmol/L (3.3-5.1); Sodium 133 mmol/L (135-145); Total Protein 8.1 g/dL (6.5-8.0)
[2022-05-07 20:17] VITALS: BP 158/63; PULSE 65; RESP 12; TEMP 36.6; O2SAT 90
[2022-05-07 21:38] VITALS: PULSE 63; RESP 16; O2SAT 99
[2022-05-07 22:38] LABS: Basophils Percent Auto 0.3 % (0-2); Eosinophils Absolute Auto 0.2 X10*3/uL (0.0-0.4); Eosinophils Percent Auto 2.4 % (0-4); Hematocrit 34.6 % (37.0-47.0); Hemoglobin 11.2 g/dl (12.0-16.0); Imm Gran Abs Auto 0.05 X10*3/uL (0.00-0.03); Imm Gran Pct Auto 0.8 % (0.0-0.4); Lymphocytes Absolute Auto 0.4 X10*3/uL (1.2-4.9); Lymphocytes Percent Auto 5.3 % (20-40); MANUAL DIFF FLAG NO; Mean Corpuscular HGB Conc 32.4 g/dl (31.0-35.0); Mean Corpuscular Hemoglobin 30.2 pg (27.0-33.0); Mean Corpuscular Volume 93.3 fL (80.0-98.0); Monocytes Absolute Auto 0.1 X10*3/uL (0.1-1.2); Monocytes Percent Auto 1.7 % (2-11); Neutrophils Percent Auto 89.5 % (45-73); Platelet Count 260 X10*3/uL (160-400); Red Blood Count 3.71 X10*6/uL (4.20-5.50); Red Cell Distribution Width 14.4 % (11.0-16.0); White Blood Count 6.6 X10*3/uL (4.8-10.8)
--- NOTE | 2022-05-07 23:25 | PM.IMHP ---
History of Present Illness Date of Service: 05/07/22 Chief Complaint: SOB 67-year-old female Turkish-speaking with some Guinean with past medical history of ESRD on dialysis //, CHF, diabetes, asthma/COPD, hypertension presents to the hospital with complaints of shortness of breath. Patient diagnosed with COVID-19 on 04 24, remains positive today. She reports increased cough, sputum production, shortness of breath. Denies any missed dialysis. Reports last dialysis session was on Sunday. Denies any chest pain. Reports no abdominal pain nausea or vomiting, no diarrhea constipation, no urinary symptoms. Patient reports increased weakness, and low oral intake. Of note patient was discharged from a hospital on 04 30 after being treated for COVID-19 infection as well as hypoxia secondary to volume overload. Treated with hemodialysis. On arrival to the ED patient hemodynamically stable found to be 90% on her baseline 2 L of oxygen, Labs are significant for WBC count of 4.8, hemoglobin of 11.2 which is around her baseline, hematocrit 34.6, pH of 7.5, pCO2 46, sodium of 133, chloride 91, creatinine of 1.39 which is around her baseline, BNP of 2369 which is lower than her usual, troponin of 31.2, COVID-19 positive Chest x-ray shows mild pulmonary vascular congestion and possible minimal interstitial edema, no airspace consolidation Review of Systems Review of Systems: Yes all other systems are reviewed and are negative [facility] Medical History Acute exacerbation of chronic obstructive pulmonary disease (COPD) Acute GI bleeding Anasarca Anemia in chronic kidney disease Ascites Constipation Diabetes mellitus End stage renal disease on dialysis ESRD (end stage renal disease) Essential hypertension Heart failure with preserved ejection fraction Hypertrophic cardiomyopathy Ischemic colitis Opioid withdrawal Family History Other Hypertension Surgical History No pertinent past surgical history Social History Household Members: None Housing: House Do you presently have visiting nurse or other home services: Yes (Heidy) Unable to assess alcohol history related to: Unknown Alcohol intake: never Patient Tobacco Use Status: Current everyday Tobacco user Tobacco use type: Cigarette Cigarette Packs Per Day: 1 Cigarettes Per Day: 3 Years Smoked: 18 Smoked in Last 30 Days: Yes e-Cigarette/Vaping Use: Never Used Second Hand Smoke Exposure: No Use of substances other than those prescribed or required for medical reasons: No Substance Use Type: Heroin Advance Directives: No Advance Directives Information Provided: No Advance Directives Date on File: 04/20/21 service: No Current occupational status: unemployed and disabled Meds Allergies Allergy/AdvReac Type Severity Reaction Status Date / Time No Known Allergies Allergy Mild NOT Verified 04/14/22 01:40 APPLICABLE Home Medications Medication Instructions Recorded Confirmed Last Taken Type buprenorphine 8 mg-naloxone 2 mg 2 strip sublingual DAILY 10/22/20 04/24/22 10/12/21 History sublingual film (Suboxone) diltiazem HCl 180 mg 360 mg PO DAILY 10/22/20 04/24/22 10/12/21 History capsule,extended release 24 hr bumetanide 2 mg tablet 2 mg PO DAILY 04/15/21 04/24/22 10/12/21 History fluticasone propionate 110 1 puff inhalation BID 04/15/21 04/24/22 Unknown History mcg/actuation HFA aerosol inhaler (Flovent HFA) melatonin 5 mg tablet 5 mg PO BEDTIME PRN Sleep 04/15/21 04/24/22 Unknown History pantoprazole 40 mg tablet,delayed 40 mg PO DAILY 04/15/21 04/24/22 Unknown History release vitamin B comp no.3-folic acid 1 1 tab PO DAILY 04/15/21 04/24/22 Unknown History mg-vit C 60 mg-biotin 300 mcg tablet ([employer]) sennosides 8.6 mg tablet (senna) 1 - 2 tab PO BEDTIME PRN 05/11/21 04/24/22 Unknown History constipation acetaminophen 500 mg tablet 500 mg PO Q8H PRN Pain, Mild 06/10/21 04/24/22 Unknown History clonidine HCl 0.2 mg tablet 0.2 mg PO BID 07/27/21 04/24/22 10/12/21 History insulin aspart U-100 100 unit/mL 1 sliding scale dose subcut 07/27/21 04/24/22 10/12/21 History subcutaneous cartridge (Novolog USEASDIRECTD PenFill U-100 Insulin aspart) insulin glargine 100 unit/mL 7 unit subcut DAILY 09/18/21 04/24/22 10/12/21 History subcutaneous solution (Lantus U-100 Insulin) albuterol sulfate 2.5 mg/3 mL 3 ml inhalation TID PRN Shortness 10/11/21 04/24/22 Unknown History (0.083 %) solution for nebulization Of Breath aspirin 81 mg tablet,delayed 1 tab PO DAILY 10/11/21 04/24/22 10/12/21 History release albuterol sulfate 90 mcg/actuation 2 puff inhalation Q4-6H PRN 01/31/22 04/24/22 Unknown History aerosol inhaler (Ventolin HFA) wheezing diclofenac sodium 1 % topical gel 2 g topical BID 03/09/22 04/24/22 Unknown History ondansetron 4 mg disintegrating 4 mg PO BID PRN nausea and vomiting 03/09/22 04/24/22 Unknown History tablet carvedilol 6.25 mg tablet 1 tab PO BID 04/24/22 04/24/22 Unknown History gabapentin 300 mg capsule 1 cap PO DAILY 04/24/22 04/24/22 Unknown History hydralazine 50 mg tablet 2 tab PO TID 04/24/22 04/24/22 Unknown History hydrocortisone 2.5 % topical cream 1 appl TN BID 04/24/22 04/24/22 Unknown History with perineal applicator tiotropium bromide 18 mcg capsule 1 cap inhalation DAILY 04/24/22 04/24/22 Unknown History with inhalation device (Spiriva with HandiHaler) Physical Exam Vital Signs and Narrative: Vital Signs: Last Vital Signs Temp 97.8 F 05/07/22 20:17 Pulse 63 05/07/22 21:38 Resp 16 05/07/22 21:38 BP 158/63 H 05/07/22 20:17 Pulse Ox 99 05/07/22 21:38 O2 Del Method 05/07/22 21:38 O2 Flow Rate 3 05/07/22 21:38 BMI result Body Mass Index 24.1 Const: Other: Is somnolent but arousable General: cooperative and no acute distress Orientation/consciousness: patient oriented x3 Eyes: General: appearance normal, both eyes and all related structures Resp: Other: Distant breath sounds Effort & Inspection: normal respiratory effort Cardio: Rate: regular rate Rhythm: regular rhythm GI: Palpation (GI): Soft to palpation Auscultation: normal bowel sounds Skin: General skin exam: no rashes or lesions noted Neuro: General: patient oriented x3 Cognition (Neuro): normal cognition Extrem: General: Yes normal to inspection and Yes no pedal edema Results Labs CBC and Chem 7: 05/08/22 05:45 05/08/22 05:45 Labs: Laboratory Results - last 24 hr 05/07/22 05/07/22 05/07/22 18:51 18:51 18:51 MCV MCH MCHC RDW Plt Count MPV Immature Gran % (Auto) Neut % (Auto) Lymph % (Auto) Summers % (Auto) Eos % (Auto) Baso % (Auto) Lymph # (Auto) Summers # (Auto) Eos # (Auto) Baso # (Auto) Abs Immat Gran (auto) Absolute Neuts (auto) Absolute Nucleated RBC Nucleated RBC % (auto) VBG pH VBG pCO2 VBG pO2 VBG HCO3 VBG O2 Saturation VBG Base Excess Anion Gap 20 Estim Creat Clear Calc 8.3 Estimated GFR 8 Random Glucose 171 H Calcium 9.3 Magnesium 2.2 Total Bilirubin 0.4 AST 26 ALT 13 Alkaline Phosphatase 189 H Troponin I High Sens 31.2 H B-Natriuretic Peptide Total Protein 8.1 H Albumin 4.2 Influenza Type A (PCR) NEGATIVE Influenza Type B (PCR) NEGATIVE RSV RNA Qual (PCR) NEGATIVE SARS-CoV-2 RNA (RT-PCR) POSITIVE A 05/07/22 05/07/22 05/07/22 18:51 18:55 22:32 MCV 93.3 MCH 30.2 MCHC 32.4 RDW 14.4 Plt Count 260 MPV 9.0 L Immature Gran % (Auto) 0.8 H Neut % (Auto) 89.5 H Lymph % (Auto) 5.3 L Summers % (Auto) 1.7 L Eos % (Auto) 2.4 Baso % (Auto) 0.3 Lymph # (Auto) 0.4 L Summers # (Auto) 0.1 Eos # (Auto) 0.2 Baso # (Auto) 0.0 Abs Immat Gran (auto) 0.05 H Absolute Neuts (auto) 6.0 Absolute Nucleated RBC 0.000 Nucleated RBC % (auto) 0.0 VBG pH 7.50 H VBG pCO2 46 VBG pO2 61 VBG HCO3 36 H VBG O2 Saturation 90.0 VBG Base Excess 12.1 Anion Gap Estim Creat Clear Calc Estimated GFR Random Glucose Calcium Magnesium Total Bilirubin AST ALT Alkaline Phosphatase Troponin I High Sens B-Natriuretic Peptide 2369 H Total Protein Albumin Influenza Type A (PCR) Influenza Type B (PCR) RSV RNA Qual (PCR) SARS-CoV-2 RNA (RT-PCR) Imaging Radiologist's Impressions: Impressions Chest X-Ray 05/07/22 19:00 IMPRESSION: 1. Mild pulmonary vascular congestion and possible minimal interstitial edema. 2. No airspace consolidation or definite pleural effusions. Assessment and Plan (1) Asthma with COPD with exacerbation: Status: Acute (2) COVID-19 virus infection: Status: Acute (3) Pulmonary congestion: Status: Acute Plan This is a 67-year-old female with past medical history of ESRD on dialysis, recent history of COVID infection, history of asthma/COPD presents to the hospital with complaints of shortness of breath # acute on chronic respiratory failure - on baseline 2 L of oxygen - no acute hypoxia at this time but reports dyspnea, sputum production and cough - will treat for COPD exacerbation - monitor respiratory status # asthma with COPD exacerbation - current every day tobacco user - likely secondary to COVID infection - will treat with Solu-Medrol, DuoNeb p.r.n. as well scheduled - will hold off on antibiotics at patient's exacerbation likely precipitated by viral rather than bacterial # COVID-19 virus infection - the evidence of pneumonia on chest x-ray - will manages above - monitor oxygen requirement # pulmonary congestion - likely secondary to volume overload in the setting of ESRD - patient anti uric - will consult Nephrology for dialysis - denies missed dialysis session # ESRD - on dialysis Sunday, , Sunday - reports compliance - will consult Nephrology # diabetes - continue home insulin - will add low-dose sliding scale insulin - diabetic diet # hypertension - stable - continue home antihypertensives DVT prophylaxis: Heparin subQ Given patient's COPD exacerbation show requirement a minimum 2 night inpatient hospital stay for further management and monitoring Time Spent With Patient Time: Total time managing care of this patient today ____ minutes. Quality Stroke Does the patient have a stroke diagnosis?: No VTE Prior VTE?: No VTE Risk Level:: Medical - moderate - high VTE Device Contraindication: Treatment Not Indicated VTE Drug Contraindication: N/A - Med Ordered
[2022-05-07] MEDS: Heparin Sodium,Porcine 5,000 UNIT/ML VIAL 5000 UNIT SUBCUT (23:38)
[2022-05-07] MEDS: 0.9 % Sodium Chloride Flush 3 ML SYRINGE IVFLUSH (23:39)
[2022-05-08] VITALS (9 sets, daily range): BP systolic 118–208; BP diastolic 61–94; PULSE 64–87; RESP 13–19; TEMP 36.3–36.7; O2SAT 90–97
--- NOTE | 2022-05-08 01:19 | MHC.EDTECH ---
pt is sleeping vitals taken and table cleared off
[2022-05-08] MEDS: methylPREDNISolone Sod Succ 40 MG/ML VIAL IVPUSH ×2 (05:41→18:13)
[2022-05-08 05:59] LABS: Basophils Percent Auto 0.2 % (0-2); Eosinophils Percent Auto 0.2 % (0-4); Hematocrit 33.8 % (37.0-47.0); Hemoglobin 11.1 g/dl (12.0-16.0); Imm Gran Abs Auto 0.04 X10*3/uL (0.00-0.03); Imm Gran Pct Auto 0.8 % (0.0-0.4); Lymphocytes Absolute Auto 0.3 X10*3/uL (1.2-4.9); Lymphocytes Percent Auto 6.1 % (20-40); MANUAL DIFF FLAG SCAN; Mean Corpuscular HGB Conc 32.8 g/dl (31.0-35.0); Mean Corpuscular Hemoglobin 30.9 pg (27.0-33.0); Mean Corpuscular Volume 94.2 fL (80.0-98.0); Mean Platelet Volume 9.4 fL (9.4-12.3); Monocytes Absolute Auto 0.1 X10*3/uL (0.1-1.2); Monocytes Percent Auto 1.1 % (2-11); Neutrophils Absolute Auto 4.4 x10*3/uL (2.0-8.3); Neutrophils Percent Auto 91.6 % (45-73); Platelet Count 244 X10*3/uL (160-400); Red Blood Count 3.59 X10*6/uL (4.20-5.50); Red Cell Distribution Width 14.2 % (11.0-16.0); SCAN SMEAR FLAG 1; White Blood Count 4.8 X10*3/uL (4.8-10.8)
[2022-05-08 06:15] LABS: Anion Gap 21 (12-20); Blood Urea Nitrogen 31 mg/dL (9-16); Calcium 8.9 mg/dL (8.4-10.2); Carbon Dioxide 27 mmol/L (22-29); Chloride 87 mmol/L (96-108); Creatinine Clr Calc Pharmacy 7.1; Estimated Glomerular Filt Rate 7; Glucose Random 434 mg/dL (60-115); Potassium 5.7 mmol/L (3.3-5.1); Sodium 129 mmol/L (135-145)
--- NOTE | 2022-05-08 06:21 | PC.NURSE ---
Lab called to report critical blood glucose result of 434. [place] text sent to Dr. Torres. Dr. Torres reports will put in orders for insulin.
[2022-05-08 06:28] LABS: SLIDE REVIEW VERIFIED
[2022-05-08] MEDS: Insulin Lispro 100 UNIT/ML 3 ML VIAL 10 UNIT SUBCUT (06:33)
--- NOTE | 2022-05-08 06:35 | PC.NURSE ---
Pt medicated with 10u of Humalog as ordered. Pt tolerated well.
[2022-05-08 07:16] LABS: Glucose, Whole Blood 428 mg/dL (60-115)
[2022-05-08] MEDS: Insulin Lispro 100 UNIT/ML 3 ML VIAL SUBCUT ×3 (07:21→21:21)
[2022-05-08] MEDS: 0.9 % Sodium Chloride Flush 3 ML SYRINGE IVFLUSH ×3 (07:21→21:22)
--- NOTE | 2022-05-08 07:23 | PHA.MEDREC ---
Pharmacy Consult ? Medication Reconciliation rn has completed the medication reconciliation. pharmacy reviewed.
[2022-05-08] MEDS: Albuterol/Iprat 2.5/0.5MG 3 ML AMPUL.NEB INHALE ×4 (07:38→20:09)
--- NOTE | 2022-05-08 09:02 | PC.NURSE ---
patient alert, oriented x4. VSS. gary SOB at this time. on home O2 of 2L nasal cannula. able to make needs known.
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
[2022-05-08] MEDS: Heparin Sodium,Porcine 5,000 UNIT/ML VIAL 5000 UNIT SUBCUT ×2 (10:51→23:54)
[2022-05-08] MEDS: Sodium Zirconium Cyclosilicate 10 GM POWD.PACK PO (10:52)
--- NOTE | 2022-05-08 10:55 | P.PNIM_ITS ---
Subjective Subjective Date of Service: 05/08/22 Interval History: Follow up abd pain, constipation, nausea Review of Systems Review of Systems: Yes all other systems are reviewed and are negative Physical Exam Vital Signs: Vital Signs: Last Vital Signs Temp 98.1 F 05/08/22 10:15 Pulse 76 05/08/22 10:15 Resp 18 05/08/22 10:15 BP 182/76 H 05/08/22 10:19 Pulse Ox 97 05/08/22 10:15 O2 Del Method 05/08/22 10:15 O2 Flow Rate 3.5 05/08/22 10:15 BMI result Body Mass Index 24.1 Appearing in no acute distress lung sounds are clear to auscultation heart regular rate rhythm, clear S1, S2 positive bowel sounds, abdomen is soft, nontender, diffuse abd pain neuro patient is alert x3, no focal deficits Objective Data Active Medications Acetaminophen (Acetaminophen 325 Mg Tablet) 650 mg PO Q6H PRN PRN Reason: Pain, Mild (Pain Scale 1-3) Albuterol/Ipratropium (Albuterol/Iprat 2.5/0.5mg 3 Ml Ampul.Neb) 3 ml INHALE RQ4H PRN PRN Reason: Shortness of Breath/Wheezing Albuterol/Ipratropium (Albuterol/Iprat 2.5/0.5mg 3 Ml Ampul.Neb) 3 ml INHALE RQ4H WHILE AWAKE [facility] Last Admin: 05/08/22 07:38 Dose: 3 ml Documented By: LARISSA Dextrose (Dextrose 50 % 25 Gm/50 Ml Syringe) 25 gm IVPUSH Q15M PRN; Protocol PRN Reason: per Hypoglycemia Standing Ord. Glucose (Glucose Gel 15 Gm Gel..Gram.) 15 gm PO Q15M PRN; Protocol PRN Reason: per Hypoglycemia Standing Ord. Heparin Sodium (Porcine) (Heparin Sodium,Porcine 5,000 Unit/Ml Vial) 5,000 unit SUBCUT Q12H [facility] Last Admin: 05/08/22 10:51 Dose: 5,000 unit Documented By: TOM Insulin Human Lispro (Insulin Lispro 100 Unit/Ml 3 Ml Vial) 0 unit SUBCUT QIDACHS [facility]; Protocol Last Admin: 05/08/22 07:21 Dose: 10 unit Documented By: PAYTON Methylprednisolone Sodium Succinate (Methylprednisolone Sod Succ 40 Mg/Ml Vial) 40 mg IVPUSH Q12H [facility] Last Admin: 05/08/22 05:41 Dose: 40 mg Documented By: ERYN Ondansetron HCl (Ondansetron Hcl 4 Mg/2 Ml Vial) 4 mg IVPUSH Q8H PRN PRN Reason: Nausea and Vomiting Sodium Chloride (0.9 % Sodium Chloride Flush 3 Ml Syringe) 3 ml IVFLUSH QSHIFT [facility] Last Admin: 05/08/22 07:21 Dose: 3 ml Documented By: PAYTON Labs CBC & Chem 7: 05/08/22 05:45 05/08/22 05:45 Labs: Laboratory Results - last 24 hr 05/07/22 05/07/22 05/07/22 18:51 18:51 18:51 MCV MCH MCHC RDW Plt Count MPV Immature Gran % (Auto) Neut % (Auto) Lymph % (Auto) Richardson % (Auto) Eos % (Auto) Baso % (Auto) Lymph # (Auto) Richardson # (Auto) Eos # (Auto) Baso # (Auto) Abs Immat Gran (auto) Absolute Neuts (auto) Absolute Nucleated RBC Nucleated RBC % (auto) Smear Tech's Comments VBG pH VBG pCO2 VBG pO2 VBG HCO3 VBG O2 Saturation VBG Base Excess Anion Gap 20 Estim Creat Clear Calc 8.3 Estimated GFR 8 POC Glucose Random Glucose 171 H Calcium 9.3 Magnesium 2.2 Total Bilirubin 0.4 AST 26 ALT 13 Alkaline Phosphatase 189 H Troponin I High Sens 31.2 H B-Natriuretic Peptide Total Protein 8.1 H Albumin 4.2 Influenza Type A (PCR) NEGATIVE Influenza Type B (PCR) NEGATIVE RSV RNA Qual (PCR) NEGATIVE SARS-CoV-2 RNA (RT-PCR) POSITIVE A 05/07/22 05/07/22 05/07/22 18:51 18:55 22:32 MCV 93.3 MCH 30.2 MCHC 32.4 RDW 14.4 Plt Count 260 MPV 9.0 L Immature Gran % (Auto) 0.8 H Neut % (Auto) 89.5 H Lymph % (Auto) 5.3 L Richardson % (Auto) 1.7 L Eos % (Auto) 2.4 Baso % (Auto) 0.3 Lymph # (Auto) 0.4 L Richardson # (Auto) 0.1 Eos # (Auto) 0.2 Baso # (Auto) 0.0 Abs Immat Gran (auto) 0.05 H Absolute Neuts (auto) 6.0 Absolute Nucleated RBC 0.000 Nucleated RBC % (auto) 0.0 Smear Tech's Comments VBG pH 7.50 H VBG pCO2 46 VBG pO2 61 VBG HCO3 36 H VBG O2 Saturation 90.0 VBG Base Excess 12.1 Anion Gap Estim Creat Clear Calc Estimated GFR POC Glucose Random Glucose Calcium Magnesium Total Bilirubin AST ALT Alkaline Phosphatase Troponin I High Sens B-Natriuretic Peptide 2369 H Total Protein Albumin Influenza Type A (PCR) Influenza Type B (PCR) RSV RNA Qual (PCR) SARS-CoV-2 RNA (RT-PCR) 05/08/22 05/08/22 05/08/22 05:45 05:45 07:12 MCV 94.2 MCH 30.9 MCHC 32.8 RDW 14.2 Plt Count 244 MPV 9.4 Immature Gran % (Auto) 0.8 H Neut % (Auto) 91.6 H Lymph % (Auto) 6.1 L Richardson % (Auto) 1.1 L Eos % (Auto) 0.2 Baso % (Auto) 0.2 Lymph # (Auto) 0.3 L Richardson # (Auto) 0.1 Eos # (Auto) 0.0 Baso # (Auto) 0.0 Abs Immat Gran (auto) 0.04 H Absolute Neuts (auto) 4.4 Absolute Nucleated RBC 0.000 Nucleated RBC % (auto) 0.0 Smear Tech's Comments VERIFIED VBG pH VBG pCO2 VBG pO2 VBG HCO3 VBG O2 Saturation VBG Base Excess Anion Gap 21 H Estim Creat Clear Calc 7.1 Estimated GFR 7 POC Glucose 428 H* Random Glucose 434 H* Calcium 8.9 Magnesium Total Bilirubin AST ALT Alkaline Phosphatase Troponin I High Sens B-Natriuretic Peptide Total Protein Albumin Influenza Type A (PCR) Influenza Type B (PCR) RSV RNA Qual (PCR) SARS-CoV-2 RNA (RT-PCR) Assessment and Plan (1) Acute respiratory failure with hypoxia: Status: Resolved (2) Pulmonary congestion: Status: Acute Plan This is a 67-year-old female with past medical history of ESRD on dialysis, recent history of COVID infection, history of asthma/COPD presents to the hospital with complaints of shortness of breath Asthma with COPD exacerbation Current everyday smoker Continue IV Solu-Medrol, DuoNebs scheduled more likely viral, will hold off on antibiotics Intractable nausea Continue antiemetics Supportive care COVID-19 Positive since 04/24/2022 continue supplemental oxygen Volume overload in the setting of ESRD Anuric Nephrology consultation to set up for dialysis T, TH, S Continue Bumex Diabetes mellitus Sliding scale, ADA diet Hypertension with elevated blood pressure readings Continue all home medications History of substance abuse Continue Suboxone Diabetic neuropathy Continue gabapentin GERD Continue PPI DVT prophylaxis with heparin Attending Dr. Combs Full code Continue hospitalization for treatment of asthma / COPD exacerbation and volume overload Time Spent With Patient Time: Total time managing care of this patient today ____ minutes. Quality Stroke Does the patient have a stroke diagnosis?: No VTE Prior VTE?: No VTE Risk Level:: Medical - moderate - high VTE Device Contraindication: Treatment Not Indicated VTE Drug Contraindication: N/A - Med Ordered
[2022-05-08 11:32] LABS: Glucose, Whole Blood 167 mg/dL (60-115)
[2022-05-08] MEDS: dilTIAZem HCL CD 180 MG CAP.ER.24H 360 MG PO (11:48)
[2022-05-08] MEDS: hydrALAZINE HCl 50 MG TABLET 100 MG PO ×3 (11:48→21:20)
[2022-05-08] MEDS: Insulin Glargine,Hum.rec.anlog 100 UNIT/ML 10 ML VIAL 7 UNIT SUBCUT (11:48)
[2022-05-08] MEDS: Multivitamin TABLET 1 TAB PO (11:49)
[2022-05-08] MEDS: Bumetanide 1 MG TABLET 2 MG PO (11:49)
[2022-05-08] MEDS: Gabapentin 300 MG CAPSULE PO (11:49)
[2022-05-08] MEDS: cloNIDine HCL 0.2 MG TABLET PO ×2 (11:49→21:20)
[2022-05-08] MEDS: polyethylene glycoL 3350 17 GM POWD.PACK PO (11:49)
[2022-05-08] MEDS: Isosorbide Mononitrate 30 MG TAB.ER.24H PO (11:49)
[2022-05-08] MEDS: Buprenorphine/Naloxone 8/2 mg FILM 2 FILM SUBLINGUAL (11:49)
[2022-05-08] MEDS: carvediloL 6.25 MG TABLET PO ×2 (11:49→21:20)
--- NOTE | 2022-05-08 11:55 | MHC.CLN ---
NUTRITION PATIENT RECEIVES DIALYSIS. CHANGED DIET PER DIALYSIS PARAMETERS: DIABETIC 1800 KCAL, 2 GRAM SODIUM, LOW POTASSIUM, LOW PHOSPHORUS.
--- NOTE | 2022-05-08 13:53 | MHC.CM.PN ---
Per Ria/[facility] CM, Patient may be at risk for eviction from her apartment and she has no solid family support. Ria is requesting a PT eval and questioning if a home dc is the best plan. CM will follow.
[2022-05-08 17:06] LABS: Glucose, Whole Blood 154 mg/dL (60-115)
--- NOTE | 2022-05-08 17:34 | P.PNNP_ITS ---
Subjective Subjective Date of Service: 05/08/22 Interval history: Follow up abd pain, constipation, nausea Physical Exam Vital Signs: Vital Signs: Last Vital Signs Temp 97.3 F 05/08/22 16:00 Pulse 65 05/08/22 16:00 Resp 19 05/08/22 16:00 BP 118/61 05/08/22 16:00 Pulse Ox 94 05/08/22 16:00 O2 Del Method 05/08/22 16:00 O2 Flow Rate 3.5 05/08/22 10:15 BMI result Body Mass Index 24.1 Const: Other: Is somnolent but arousable General: cooperative, no acute distress, alert and awake Nutritional Appearance: well nourished Orientation/consciousness: patient oriented x3 Limitations: no limitations HEENT: Head: Yes normal to inspection and Yes atraumatic Ears: hearing grossly normal bilaterally and external ears normal General nose exam: Normal external nose present, no nasal discharge noted and no epistaxis Face and sinus: Yes normal facial exam, No abrasion and No laceration Mouth: Normal oral and palatal mucosa present, no drooling and no muffled voice Eyes: General: appearance normal, both eyes and all related structures Periorbital: periorbital findings normal Eyelids: Yes eyelids normal Conjunctivae: conjunctivae normal Pupils: Equal, round and reactive pupils present EOM: EOMs intact bilaterally Neck: Neck: Yes normal visual inspection, Yes full ROM and Yes no lymphadenopathy Chest: Chest palpation & inspection: normal inspection of the chest Resp: Other: Distant breath sounds Effort & Inspection: normal respiratory effort, able to speak in complete sentences, Actively coughing Quality: dry and labored Auscultation: rhonchi throughout Cardio: Rate: regular rate Rhythm: regular rhythm GI: Inspection: Yes normal to inspection Palpation (GI): Soft to palpation, not firm, nontender and no guarding Auscultation: normal bowel sounds Skin: General skin exam: no rashes or lesions noted Neuro: General: patient oriented x3 and moves all extremities Cranial nerves: Yes Equal, round and reactive pupils present Cognition (Neuro): normal cognition Motor exam (neuro): 5/5 motor strength present throughout Sensory Exam: Normal double simultaneous stimulation for sensation Coordination: [id number] test normal Extrem: General: Yes normal to inspection, Yes full ROM, Yes capillary refill normal and Yes no pedal edema Psych: Appearance: grossly normal Mental Status: mental status grossly normal Affect: normal affect Attitude: cooperative Thought process: Normal thought process present Thought content: Normal thought content present Insight: Good insight present (Psych) Objective Data Labs CBC & Chem 7: 05/08/22 05:45 05/08/22 05:45 Labs: Laboratory Results - last 24 hr 05/07/22 05/07/22 05/07/22 18:51 18:51 18:51 WBC RBC Hgb Hct MCV MCH MCHC RDW Plt Count MPV Immature Gran % (Auto) Neut % (Auto) Lymph % (Auto) [place] % (Auto) Eos % (Auto) Baso % (Auto) Lymph # (Auto) [place] # (Auto) Eos # (Auto) Baso # (Auto) Abs Immat Gran (auto) Absolute Neuts (auto) Absolute Nucleated RBC Nucleated RBC % (auto) Smear Tech's Comments VBG pH VBG pCO2 VBG pO2 VBG HCO3 VBG O2 Saturation VBG Base Excess Sodium 133 L Potassium 4.6 Chloride 91 L Carbon Dioxide 27 Anion Gap 20 BUN 23 H Creatinine 5.39 H* Estim Creat Clear Calc 8.3 Estimated GFR 8 POC Glucose Random Glucose 171 H Calcium 9.3 Magnesium 2.2 Total Bilirubin 0.4 AST 26 ALT 13 Alkaline Phosphatase 189 H Troponin I High Sens 31.2 H B-Natriuretic Peptide Total Protein 8.1 H Albumin 4.2 Influenza Type A (PCR) NEGATIVE Influenza Type B (PCR) NEGATIVE RSV RNA Qual (PCR) NEGATIVE SARS-CoV-2 RNA (RT-PCR) POSITIVE A 05/07/22 05/07/22 05/07/22 18:51 18:55 22:32 WBC 6.6 RBC 3.71 L Hgb 11.2 L Hct 34.6 L MCV 93.3 MCH 30.2 MCHC 32.4 RDW 14.4 Plt Count 260 MPV 9.0 L Immature Gran % (Auto) 0.8 H Neut % (Auto) 89.5 H Lymph % (Auto) 5.3 L [place] % (Auto) 1.7 L Eos % (Auto) 2.4 Baso % (Auto) 0.3 Lymph # (Auto) 0.4 L [place] # (Auto) 0.1 Eos # (Auto) 0.2 Baso # (Auto) 0.0 Abs Immat Gran (auto) 0.05 H Absolute Neuts (auto) 6.0 Absolute Nucleated RBC 0.000 Nucleated RBC % (auto) 0.0 Smear Tech's Comments VBG pH 7.50 H VBG pCO2 46 VBG pO2 61 VBG HCO3 36 H VBG O2 Saturation 90.0 VBG Base Excess 12.1 Sodium Potassium Chloride Carbon Dioxide Anion Gap BUN Creatinine Estim Creat Clear Calc Estimated GFR POC Glucose Random Glucose Calcium Magnesium Total Bilirubin AST ALT Alkaline Phosphatase Troponin I High Sens B-Natriuretic Peptide 2369 H Total Protein Albumin Influenza Type A (PCR) Influenza Type B (PCR) RSV RNA Qual (PCR) SARS-CoV-2 RNA (RT-PCR) 05/08/22 05/08/22 05/08/22 05:45 05:45 07:12 WBC 4.8 RBC 3.59 L Hgb 11.1 L Hct 33.8 L MCV 94.2 MCH 30.9 MCHC 32.8 RDW 14.2 Plt Count 244 MPV 9.4 Immature Gran % (Auto) 0.8 H Neut % (Auto) 91.6 H Lymph % (Auto) 6.1 L [place] % (Auto) 1.1 L Eos % (Auto) 0.2 Baso % (Auto) 0.2 Lymph # (Auto) 0.3 L [place] # (Auto) 0.1 Eos # (Auto) 0.0 Baso # (Auto) 0.0 Abs Immat Gran (auto) 0.04 H Absolute Neuts (auto) 4.4 Absolute Nucleated RBC 0.000 Nucleated RBC % (auto) 0.0 Smear Tech's Comments VERIFIED VBG pH VBG pCO2 VBG pO2 VBG HCO3 VBG O2 Saturation VBG Base Excess Sodium 129 L Potassium 5.7 H D Chloride 87 L Carbon Dioxide 27 Anion Gap 21 H BUN 31 H Creatinine 6.35 H* Estim Creat Clear Calc 7.1 Estimated GFR 7 POC Glucose 428 H* Random Glucose 434 H* Calcium 8.9 Magnesium Total Bilirubin AST ALT Alkaline Phosphatase Troponin I High Sens B-Natriuretic Peptide Total Protein Albumin Influenza Type A (PCR) Influenza Type B (PCR) RSV RNA Qual (PCR) SARS-CoV-2 RNA (RT-PCR) 05/08/22 05/08/22 11:24 17:03 WBC RBC Hgb Hct MCV MCH MCHC RDW Plt Count MPV Immature Gran % (Auto) Neut % (Auto) Lymph % (Auto) [place] % (Auto) Eos % (Auto) Baso % (Auto) Lymph # (Auto) [place] # (Auto) Eos # (Auto) Baso # (Auto) Abs Immat Gran (auto) Absolute Neuts (auto) Absolute Nucleated RBC Nucleated RBC % (auto) Smear Tech's Comments VBG pH VBG pCO2 VBG pO2 VBG HCO3 VBG O2 Saturation VBG Base Excess Sodium Potassium Chloride Carbon Dioxide Anion Gap BUN Creatinine Estim Creat Clear Calc Estimated GFR POC Glucose 167 H 154 H Random Glucose Calcium Magnesium Total Bilirubin AST ALT Alkaline Phosphatase Troponin I High Sens B-Natriuretic Peptide Total Protein Albumin Influenza Type A (PCR) Influenza Type B (PCR) RSV RNA Qual (PCR) SARS-CoV-2 RNA (RT-PCR) Procedures Date of Service Date of Service: 05/08/22 Assessment & Plan Assessment and plan (1) Acute respiratory failure with hypoxia: Status: Resolved (2) Pulmonary congestion: Status: Acute Plan This is a 67-year-old female with past medical history of ESRD on dialysis, recent history of COVID infection, history of asthma/COPD presents to the hospital with complaints of shortness of breath Asthma with COPD exacerbation Current everyday smoker Continue IV Solu-Medrol, DuoNebs scheduled more likely viral, will hold off on antibiotics Intractable nausea Continue antiemetics Supportive care COVID-19 Positive since 04/24/2022 continue supplemental oxygen Volume overload in the setting of ESRD Anuric dialysis TTHSAT ordered for the am Time Spent With Patient Time: Total time managing care of this patient today ____ minutes. Progress Note: Quality Stroke Does the patient have a stroke diagnosis?: No
[2022-05-08 20:32] LABS: Glucose, Whole Blood 200 mg/dL (60-115)
[2022-05-08] MEDS: amLODIPine Besylate 10 MG TABLET PO (21:21)
[2022-05-09] VITALS (9 sets, daily range): BP systolic 155–187; BP diastolic 54–99; PULSE 58–82; RESP 17–20; TEMP 36.6–37.1; O2SAT 91–97
[2022-05-09] MEDS: Acetaminophen 325 MG TABLET 650 MG PO ×2 (02:47→23:45)
[2022-05-09] MEDS: methylPREDNISolone Sod Succ 40 MG/ML VIAL IVPUSH (05:14)
[2022-05-09] MEDS: Albuterol/Iprat 2.5/0.5MG 3 ML AMPUL.NEB INHALE ×4 (05:20→20:28)
[2022-05-09 08:40] LABS: Glucose, Whole Blood 262 mg/dL (60-115)
[2022-05-09] MEDS: polyethylene glycoL 3350 17 GM POWD.PACK PO (10:17)
[2022-05-09] MEDS: Insulin Lispro 100 UNIT/ML 3 ML VIAL SUBCUT ×2 (10:18→22:06)
[2022-05-09] MEDS: Buprenorphine/Naloxone 8/2 mg FILM 2 FILM SUBLINGUAL (10:18)
[2022-05-09] MEDS: dilTIAZem HCL CD 180 MG CAP.ER.24H 360 MG PO (10:18)
[2022-05-09] MEDS: Aspirin Enteric Coated 81 MG TABLET.DR PO (10:19)
[2022-05-09] MEDS: Multivitamin TABLET 1 TAB PO (10:19)
[2022-05-09] MEDS: Insulin Glargine,Hum.rec.anlog 100 UNIT/ML 10 ML VIAL 7 UNIT SUBCUT (10:19)
[2022-05-09] MEDS: 0.9 % Sodium Chloride Flush 3 ML SYRINGE IVFLUSH ×2 (10:19→15:50)
[2022-05-09] MEDS: Gabapentin 300 MG CAPSULE PO (10:20)
[2022-05-09] MEDS: Omeprazole 20 MG CAPSULE.DR PO (10:20)
[2022-05-09] MEDS: Bumetanide 1 MG TABLET 2 MG PO (10:20)
[2022-05-09] MEDS: Heparin Sodium,Porcine 5,000 UNIT/ML VIAL 5000 UNIT SUBCUT ×2 (10:30→23:45)
[2022-05-09 10:58] LABS: Anion Gap 20 (12-20); Blood Urea Nitrogen 60 mg/dL (9-16); Calcium 9.2 mg/dL (8.4-10.2); Carbon Dioxide 31 mmol/L (22-29); Chloride 82 mmol/L (96-108); Creatinine Clr Calc Pharmacy 5.6; Estimated Glomerular Filt Rate 5; Glucose Random 335 mg/dL (60-115); Potassium 5.8 mmol/L (3.3-5.1); Sodium 127 mmol/L (135-145)
--- NOTE | 2022-05-09 12:06 | W.PM.DNNEP ---
Subjective Subjective This patient was seen during dialysis. Interval history: Follow up abd pain, constipation, nausea Physical Exam Vital Signs: Vital Signs: Last Vital Signs Temp 97.9 F 05/09/22 07:49 Pulse 78 05/09/22 08:31 Resp 17 05/09/22 08:31 BP 160/91 H 05/09/22 07:49 Pulse Ox 96 05/09/22 07:49 O2 Del Method 05/09/22 07:49 O2 Flow Rate 2 05/09/22 07:49 BMI result Body Mass Index 24.1 Const: Other: Is somnolent but arousable General: cooperative, no acute distress, alert and awake Nutritional Appearance: well nourished Orientation/consciousness: patient oriented x3 Limitations: no limitations HEENT: Head: Yes normal to inspection and Yes atraumatic Ears: hearing grossly normal bilaterally and external ears normal General nose exam: Normal external nose present, no nasal discharge noted and no epistaxis Face and sinus: Yes normal facial exam, No abrasion and No laceration Mouth: Normal oral and palatal mucosa present, no drooling and no muffled voice Eyes: General: appearance normal, both eyes and all related structures Periorbital: periorbital findings normal Eyelids: Yes eyelids normal Conjunctivae: conjunctivae normal Pupils: Equal, round and reactive pupils present EOM: EOMs intact bilaterally Neck: Neck: Yes normal visual inspection, Yes full ROM and Yes no lymphadenopathy Chest: Chest palpation & inspection: normal inspection of the chest Resp: Other: Distant breath sounds Effort & Inspection: normal respiratory effort, able to speak in complete sentences, Actively coughing Quality: dry and labored Auscultation: rhonchi throughout Cardio: Rate: regular rate Rhythm: regular rhythm GI: Inspection: Yes normal to inspection Palpation (GI): Soft to palpation, not firm, nontender and no guarding Auscultation: normal bowel sounds Skin: General skin exam: no rashes or lesions noted Neuro: General: patient oriented x3 and moves all extremities Cranial nerves: Yes Equal, round and reactive pupils present Cognition (Neuro): normal cognition Motor exam (neuro): 5/5 motor strength present throughout Sensory Exam: Normal double simultaneous stimulation for sensation Coordination: [id number] test normal Extrem: General: Yes normal to inspection, Yes full ROM, Yes capillary refill normal and Yes no pedal edema Psych: Appearance: grossly normal Mental Status: mental status grossly normal Affect: normal affect Attitude: cooperative Thought process: Normal thought process present Thought content: Normal thought content present Insight: Good insight present (Psych) Assessment & Plan Assessment and plan (1) Acute respiratory failure with hypoxia: Status: Resolved (2) Pulmonary congestion: Status: Acute Plan This is a 67-year-old female with past medical history of ESRD on dialysis, recent history of COVID infection, history of asthma/COPD presents to the hospital with complaints of shortness of breath Asthma with COPD exacerbation Current everyday smoker Continue IV Solu-Medrol, DuoNebs scheduled more likely viral, will hold off on antibiotics Intractable nausea Continue antiemetics Supportive care COVID-19 Positive since 04/24/2022 continue supplemental oxygen Volume overload in the setting of ESRD Anuric dialysis TTHSAT SEEN ON DIALYSIS LABS STABLE PT CONFORTABLE Time Spent With Patient Time: Total time managing care of this patient today ____ minutes. Procedures Date of Service Date of Service: 05/09/22
--- NOTE | 2022-05-09 12:47 | P.CDIC_ITS ---
CDI Concurrent Query Documentation Clarification: PHYSICIAN'S DOCUMENTATION REQUEST Date of Query: 05/09/22 1245 Patient Name: Cruz Muller Admit Date: 05/07/22 Dear Doctor, Please review the following and provide your response in the progress notes. Clinical Indicators: The diagnosis of asthma was documented in the record on 05/08/22. Additional clinical indicators from the record include: Risk Factors/Clinical Indicators/Treatments Asthma with COPD exacerbation Current everyday smoker Continue IV Solu-Medrol, DuoNebs scheduled Based on the above, please clarify in the Progress Notes further specificity regarding the type of the asthma: Type: * Mild intermittent - less than 2x/week * Mild persistent - more than 2x/week but not daily * Moderate persistent - daily and may restrict physical activity * Severe persistent - throughout the day with frequent attacks, limiting activities * Exercise induced * Chronic obstructive asthma and indicate if with acute lower respiratory infection * Asthma with underlying COPD and indicate if with acute lower respiratory infection * Other ? please specify * Unable to determine Use of terms such as suspected, likely, concern for, or probable (associated with a specific diagnosis that is being evaluated, monitored, or treated as if it exists) are acceptable and can be coded in the inpatient setting, when documented at the time of discharge. Thank you, Khushboo Sanchez RN Extension: [phone] Please use your independent medical judgment in providing your response. THIS QUERY IS PART OF THE PERMANENT MEDICAL RECORD Other Diagnosis: Mild persistent
--- NOTE | 2022-05-09 12:47 | MHC.CDI.CONC ---
CDI Concurrent Query Documentation Clarification: PHYSICIAN'S DOCUMENTATION REQUEST Date of Query: 05/09/22 1241 Patient Name: Cruz Muller Admit Date: 05/07/22 Dear Doctor, Please review the following and provide your response in the progress notes. Clinical Indicators: The diagnosis of asthma was documented in the record on 05/08/22. Additional clinical indicators from the record include: Risk Factors/Clinical Indicators/Treatments Asthma with COPD exacerbation Current everyday smoker Continue IV Solu-Medrol, DuoNebs scheduled Based on the above, please clarify in the Progress Notes further specificity regarding the type of the asthma: Type: Mild intermittent - less than 2x/week Mild persistent - more than 2x/week but not daily Moderate persistent - daily and may restrict physical activity Severe persistent - throughout the day with frequent attacks, limiting activities Exercise induced Chronic obstructive asthma and indicate if with acute lower respiratory infection Asthma with underlying COPD and indicate if with acute lower respiratory infection Other ? please specify Unable to determine Use of terms such as suspected, likely, concern for, or probable (associated with a specific diagnosis that is being evaluated, monitored, or treated as if it exists) are acceptable and can be coded in the inpatient setting, when documented at the time of discharge. Thank you, Khushboo Sanchez RN Extension: [phone] Please use your independent medical judgment in providing your response. THIS QUERY IS PART OF THE PERMANENT MEDICAL RECORD Other Diagnosis: Mild persistent
[2022-05-09 12:55] LABS: Glucose, Whole Blood 149 mg/dL (60-115)
--- NOTE | 2022-05-09 13:19 | P.PNIM_ITS ---
Subjective Subjective Date of Service: 05/09/22 Interval History: Follow up abd pain, constipation, nausea Review of Systems Review of Systems: Yes all other systems are reviewed and are negative Physical Exam Vital Signs: Vital Signs: Last Vital Signs Temp 97.9 F 05/09/22 07:49 Pulse 78 05/09/22 08:31 Resp 17 05/09/22 08:31 BP 160/91 H 05/09/22 07:49 Pulse Ox 96 05/09/22 07:49 O2 Del Method 05/09/22 07:49 O2 Flow Rate 2 05/09/22 07:49 BMI result Body Mass Index 24.1 Appearing in no acute distress lung sounds are clear to auscultation heart regular rate rhythm, clear S1, S2 positive bowel sounds, abdomen is soft, nontender neuro patient is alert x3, no focal deficits Objective Data Active Medications Acetaminophen (Acetaminophen 325 Mg Tablet) 650 mg PO Q6H PRN PRN Reason: Pain, Mild (Pain Scale 1-3) Last Admin: 05/09/22 02:47 Dose: 650 mg Documented By: FRANK Albuterol Sulfate (Albuterol Sulfate (0.083%) 2.5 Mg/3 Ml Vial.Neb) 2.5 mg INHALE RTID PRN PRN Reason: Shortness Of Breath Albuterol/Ipratropium (Albuterol/Iprat 2.5/0.5mg 3 Ml Ampul.Neb) 3 ml INHALE RQ4H PRN PRN Reason: Shortness of Breath/Wheezing Last Admin: 05/09/22 05:20 Dose: 3 ml Documented By: MYKEL Albuterol/Ipratropium (Albuterol/Iprat 2.5/0.5mg 3 Ml Ampul.Neb) 3 ml INHALE RQ4H WHILE AWAKE [facility] Last Admin: 05/09/22 12:04 Dose: Not Given Documented By: ARMEN Non-Admin Reason: Not In Room Amlodipine Besylate (Amlodipine Besylate 10 Mg Tablet) 10 mg PO BEDTIME [facility]; Protocol Last Admin: 05/08/22 21:21 Dose: 10 mg Documented By: JIMMY Aspirin (Aspirin Enteric Coated 81 Mg Tablet.Dr) 81 mg PO DAILY [facility] Last Admin: 05/09/22 10:19 Dose: 81 mg Documented By: HO.TSIANM Bumetanide (Bumetanide 1 Mg Tablet) 2 mg PO DAILY [facility]; Protocol Last Admin: 05/09/22 10:20 Dose: 2 mg Documented By: RIANA Buprenorphine/Naloxone (Buprenorphine/Naloxone 8/2 Mg Film) 2 film SUBLINGUAL DAILY [facility] Last Admin: 05/09/22 10:18 Dose: 1 film Documented By: RIANA Comments: patient refused second film Carvedilol (Carvedilol 6.25 Mg Tablet) 6.25 mg PO BID [facility]; Protocol Last Admin: 05/08/22 21:20 Dose: 6.25 mg Documented By: JIMMY Clonidine HCl (Clonidine Hcl 0.2 Mg Tablet) 0.2 mg PO BID PHAN; Protocol Last Admin: 05/08/22 21:20 Dose: 0.2 mg Documented By: JIMMY Dextrose (Dextrose 50 % 25 Gm/50 Ml Syringe) 25 gm IVPUSH Q15M PRN; Protocol PRN Reason: per Hypoglycemia Standing Ord. Diltiazem HCl (Diltiazem Hcl Cd 180 Mg Cap.Er.24h) 360 mg PO DAILY [facility]AN; Protocol Last Admin: 05/09/22 10:18 Dose: 360 mg Documented By: RIANA Diphenhydramine HCl (Diphenhydramine Hcl 25 Mg Capsule) 25 mg PO DAILY PRN PRN Reason: allergy symptoms Docusate Sodium (Docusate Sodium 100 Mg Capsule) 100 mg PO BID PRN PRN Reason: Constipation Gabapentin (Gabapentin 300 Mg Capsule) 300 mg PO DAILY [facility] Last Admin: 05/09/22 10:20 Dose: 300 mg Documented By: RIANA Glucose (Glucose Gel 15 Gm Gel..Gram.) 15 gm PO Q15M PRN; Protocol PRN Reason: per Hypoglycemia Standing Ord. Heparin Sodium (Porcine) (Heparin Sodium,Porcine 5,000 Unit/Ml Vial) 5,000 unit SUBCUT Q12H [facility] Last Admin: 05/09/22 10:30 Dose: 5,000 unit Documented By: RIANA Hydralazine HCl (Hydralazine Hcl 50 Mg Tablet) 100 mg PO TID [facility]; Protocol Last Admin: 05/08/22 21:20 Dose: 100 mg Documented By: JIMMY Hydrocortisone (Hydrocortisone 2.5 % Rectal Cr 30 Gm Tube) 1 appl NV BID [facility] Last Admin: 05/08/22 21:34 Dose: Not Given Documented By: JIMMY Non-Admin Reason: Med Not Available Insulin Glargine (Insulin Glargine,Hum.Rec.Anlog 100 Unit/Ml 10 Ml Vial) 7 unit SUBCUT DAILY [facility] Last Admin: 05/09/22 10:19 Dose: 7 unit Documented By: RIANA Insulin Human Lispro (Insulin Lispro 100 Unit/Ml 3 Ml Vial) 0 unit SUBCUT QID ACHS [facility]; Protocol Last Admin: 05/09/22 10:18 Dose: 6 unit Documented By: RIANA Isosorbide Mononitrate (Isosorbide Mononitrate 30 Mg Tab.Er.24h) 30 mg PO DAILY [facility]; Protocol Last Admin: 05/08/22 11:49 Dose: 30 mg Documented By: TOM Methylprednisolone Sodium Succinate (Methylprednisolone Sod Succ 40 Mg/Ml Vial) 40 mg IVPUSH Q12H [facility] Last Admin: 05/09/22 05:14 Dose: 40 mg Documented By: FRANK Multivitamins/Vitamin C (Multivitamin Tablet) 1 tab PO DAILY [facility] Last Admin: 05/09/22 10:19 Dose: 1 tab Documented By: RIANA Omeprazole (Omeprazole 20 Mg Capsule.Dr) 20 mg PO DAILY [facility] Last Admin: 05/09/22 10:20 Dose: 20 mg Documented By: RIANA Ondansetron HCl (Ondansetron Hcl 4 Mg/2 Ml Vial) 4 mg IVPUSH Q8H PRN PRN Reason: Nausea and Vomiting Polyethylene Glycol (Polyethylene Glycol 3350 17 Gm Powd.Pack) 17 gm PO DAILY [facility] Last Admin: 05/09/22 10:17 Dose: 17 gm Documented By: RIANA Sodium Chloride (0.9 % Sodium Chloride Flush 3 Ml Syringe) 3 ml IVFLUSH QSHIFT [facility] Last Admin: 05/09/22 10:19 Dose: 3 ml Documented By: RIANA Tiotropium [place] (Tiotropium [place] 18 Mcg Cap.W.Dev) 1 puff INHALE DAILY [facility] Last Admin: 05/09/22 08:28 Dose: 1 puff Documented By: ARMEN Labs CBC & Chem 7: 05/08/22 05:45 05/09/22 10:00 Labs: Laboratory Results - last 24 hr 05/08/22 05/08/22 05/09/22 17:03 20:23 07:06 Anion Gap Estim Creat Clear Calc Estimated GFR POC Glucose 154 H 200 H 262 H Random Glucose Calcium 05/09/22 05/09/22 10:00 12:50 Anion Gap 20 Estim Creat Clear Calc 5.6 Estimated GFR 5 POC Glucose 149 H Random Glucose 335 H Calcium 9.2 Assessment and Plan (1) Acute respiratory failure with hypoxia: Status: Resolved (2) Pulmonary congestion: Status: Acute Plan This is a 67-year-old female with past medical history of ESRD on dialysis, recent history of COVID infection, history of asthma/COPD presents to the hospital with complaints of shortness of breath Asthma, mild persistent with COPD exacerbation Current everyday smoker Continue IV Solu-Medrol, DuoNebs scheduled more likely viral, will hold off on antibiotics Intractable nausea. Resolved Continue antiemetics Supportive care COVID-19. Asymptomatic Positive since 04/24/2022 continue supplemental oxygen Volume overload in the setting of ESRD. Resolved Anuric Nephrology consultation to set up for dialysis T, TH, S Continue Bumex Diabetes mellitus Sliding scale, ADA diet Hypertension with elevated blood pressure readings Continue all home medications History of substance abuse Continue Suboxone Diabetic neuropathy Continue gabapentin GERD Continue PPI DVT prophylaxis with heparin Attending Dr. Combs Full code Disposition. Physical therapy evaluation for discharge consideration Continue hospitalization for treatment of asthma / COPD exacerbation and volume overload Time Spent With Patient Time: Total time managing care of this patient today ____ minutes. Quality Stroke Does the patient have a stroke diagnosis?: No VTE Prior VTE?: No VTE Risk Level:: Medical - moderate - high VTE Device Contraindication: Treatment Not Indicated VTE Drug Contraindication: N/A - Med Ordered
--- NOTE | 2022-05-09 14:05 | MHC.CM.PN ---
Spoke with Ria, hortencia MOORE. She requested a PT eval. A PT eval has been ordered. Referrals have been sent to SNFs for STR., The patient is covid+. Facilities are following for recovery. DP STR via BLS.
[2022-05-09] MEDS: hydrALAZINE HCl 50 MG TABLET 100 MG PO ×2 (15:50→22:04)
[2022-05-09] MEDS: Nicotine 7 MG PATCH.TD24 TRANSDERMA (15:57)
[2022-05-09 16:41] LABS: Glucose, Whole Blood 155 mg/dL (60-115)
[2022-05-09] MEDS: LORazepam 1 MG TABLET PO ×2 (17:26→23:45)
[2022-05-09] MEDS: Sodium Zirconium Cyclosilicate 5 GM POWD.PACK PO (18:31)
[2022-05-09 20:28] LABS: Glucose, Whole Blood 189 mg/dL (60-115)
[2022-05-09] MEDS: cloNIDine HCL 0.2 MG TABLET PO (22:04)
[2022-05-09] MEDS: carvediloL 6.25 MG TABLET PO (22:04)
[2022-05-09] MEDS: amLODIPine Besylate 10 MG TABLET PO (22:04)
[2022-05-10 07:23] VITALS: BP 156/68; PULSE 53; RESP 20; TEMP 36.8; O2SAT 93
[2022-05-10 07:52] LABS: Glucose, Whole Blood 274 mg/dL (60-115)
[2022-05-10 07:53] LABS: Anion Gap 18 (12-20); Blood Urea Nitrogen 41 mg/dL (9-16); Calcium 8.6 mg/dL (8.4-10.2); Carbon Dioxide 25 mmol/L (22-29); Chloride 92 mmol/L (96-108); Creatinine Clr Calc Pharmacy 8.5; Estimated Glomerular Filt Rate 8; Glucose Random 258 mg/dL (60-115); Potassium 4.4 mmol/L (3.3-5.1); Sodium 131 mmol/L (135-145)
[2022-05-10] MEDS: Albuterol/Iprat 2.5/0.5MG 3 ML AMPUL.NEB INHALE (08:30)
[2022-05-10 08:31] VITALS: PULSE 59; O2SAT 93
--- NOTE | 2022-05-10 09:38 | PM.PNNEP ---
Subjective Subjective Date of Service: 05/10/22 Interval history: Follow up abd pain, constipation, nausea Physical Exam Vital Signs: Vital Signs: Last Vital Signs Temp 98.2 F 05/10/22 07:23 Pulse 59 05/10/22 08:31 Resp 20 05/10/22 07:23 BP 156/68 H 05/10/22 07:23 Pulse Ox 93 05/10/22 07:23 O2 Del Method 05/10/22 07:23 O2 Flow Rate 2 05/09/22 07:49 BMI result Body Mass Index 24.1 Const: Other: Is somnolent but arousable General: cooperative, no acute distress, alert and awake Nutritional Appearance: well nourished Orientation/consciousness: patient oriented x3 Limitations: no limitations Neuro: General: patient oriented x3 Objective Data Labs CBC & Chem 7: 05/08/22 05:45 05/10/22 07:14 Labs: Laboratory Results - last 24 hr 05/09/22 05/09/22 05/09/22 10:00 12:50 15:52 Sodium 127 L Potassium 5.8 H Chloride 82 L Carbon Dioxide 31 H Anion Gap 20 BUN 60 H D Creatinine 8.04 H* Estim Creat Clear Calc 5.6 Estimated GFR 5 POC Glucose 149 H 155 H Random Glucose 335 H Calcium 9.2 05/09/22 05/10/22 05/10/22 20:05 07:14 07:30 Sodium 131 L Potassium 4.4 D Chloride 92 L Carbon Dioxide 25 Anion Gap 18 BUN 41 H Creatinine 5.30 H* Estim Creat Clear Calc 8.5 Estimated GFR 8 POC Glucose 189 H 274 H Random Glucose 258 H Calcium 8.6 D Procedures Date of Service Date of Service: 05/10/22 Assessment & Plan Assessment and plan (1) Acute respiratory failure with hypoxia: Status: Resolved (2) Pulmonary congestion: Status: Acute (3) End stage renal disease on dialysis: Status: Acute Assessment and Plan: she was dialyzed yesterday with fluid removal feeling at baseline today if she is still in the hospital tomorrow we will dialyze her Plan This is a 67-year-old female with past medical history of ESRD on dialysis, recent history of COVID infection, history of asthma/COPD presents to the hospital with complaints of shortness of breath Asthma, mild persistent with COPD exacerbation Current everyday smoker Continue IV Solu-Medrol, DuoNebs scheduled more likely viral, will hold off on antibiotics Time Spent With Patient Time: Total time managing care of this patient today ____ minutes. Progress Note: Quality Stroke Does the patient have a stroke diagnosis?: No
--- NOTE | 2022-05-10 09:48 | P.DS_ITS ---
DS: Providers Provider Date of Service: 05/10/22 Date of admission: 05/07/22 23:22 Primary care physician: Sammy Vicente MD Consults: 05/08/22 06:36 Consult to Nephrology Routine Consulting Provider: [facility] Reason for consultation: fluid management, ESRD Has provider been notified: No Attending physician on discharge: Kunal Combs Discharging clinician: Angelica Ashby DS: Diagnosis Discharge Diagnosis (1) Acute respiratory failure with hypoxia: Status: Resolved (2) Pulmonary congestion: Status: Acute (3) End stage renal disease on dialysis: Status: Acute DS: Summary Hospital Course Hospital Course: History and physical as permitted provider 67-year-old female Icelandic-speaking with some Yi with past medical history of ESRD on dialysis /, CHF, diabetes, asthma/COPD, hypertension presents to the hospital with complaints of shortness of breath.? Patient diagnosed with COVID-19 on 04 24, remains positive today.? She reports increased cough, sputum production, shortness of breath.? Denies any missed dialysis.? Reports last dialysis session was on Sunday.? Denies any chest pain.? Reports no abdominal pain nausea or vomiting, no diarrhea constipation, no urinary symptoms.? Patient reports increased weakness, and low oral intake.? Of note patient was discharged from a hospital on 04 30 after being treated for COVID-19 infection as well as hypoxia secondary to volume overload.? Treated with hemodialysis. On arrival to the ED patient hemodynamically stable found to be 90% on her baseline 2 L of oxygen, Labs are significant for WBC count of 4.8, hemoglobin of 11.2 which is around her baseline, hematocrit 34.6, pH of 7.5, pCO2 46, sodium of 133, chloride 91, creatinine of 1.39 which is around her baseline, BNP of 2369 which is lower than her usual, troponin of 31.2, COVID-19 positive Chest x-ray shows mild pulmonary vascular congestion and possible minimal interstitial edema, no airspace consolidation Asthma, mild persistent with COPD exacerbation Current everyday smoker Continue IV Solu-Medrol, DuoNebs scheduled more likely viral, will hold off on antibiotics . Intractable nausea.? Resolved Treated with antiemetics Supportive care COVID-19.? Asymptomatic Positive since 04/24/2022 Treated with supplemental oxygen Volume overload in the setting of ESRD.? Resolved Anuric Treated with dialysis, last session 05/09/2022 Continue Bumex Diabetes mellitus Continue home medications Hypertension with elevated blood pressure readings Continue all home medications History of substance abuse Continue Suboxone Diabetic neuropathy Continue gabapentin GERD Continue PPI Time Spent with Patient Time attestation: Total time managing care of this patient today ____ minutes. Discharge coordination time: Greater than 30 minutes Quality: Safe Use of Opioids Does Pt have an Active Cancer Diagnosis on the Problem List?: No Quality: Stroke Does the patient have a stroke diagnosis?: No Physical Exam Vital Signs: Vital Signs: Last Vital Signs Temp 98.2 F 05/10/22 07:23 Pulse 59 05/10/22 08:31 Resp 20 05/10/22 07:23 BP 156/68 H 05/10/22 07:23 Pulse Ox 93 05/10/22 07:23 O2 Del Method 05/10/22 07:23 O2 Flow Rate 2 05/09/22 07:49 BMI result Body Mass Index 24.1 Appearing in no acute distress head is normocephalic atraumatic eyes pupils are PERRLA sclera is anicteric mouth throat mucous membranes are intact and moist neck is supple no lymphadenopathy, no JVD noted lung sounds are clear to auscultation heart regular rate rhythm, clear S1, S2 positive bowel sounds, abdomen is soft, nontender neuro patient is alert x3, no focal deficits DS: Data Data Completed and Pending Completed studies during hospitalization [Text1]: Procedures Assistance with Respiratory Ventilation, Less than 24 Consecutive Hours, Continuous Positive Airway Pressure (04/14/22) Excision of Left Kidney, Percutaneous Approach, Diagnostic (02/25/21) Excision of Right Kidney, Percutaneous Approach, Diagnostic (10/22/20) Insertion of Endotracheal Airway into Trachea, Via Natural or Artificial Opening (10/12/21) Insertion of Infusion Device into Right Atrium, Percutaneous Approach (01/30/22) Insertion of Infusion Device into Superior Vena Cava, Percutaneous Approach (02/25/21) Insertion of Tunneled Vascular Access Device into Chest Subcutaneous Tissue and Fascia, Percutaneous Approach (10/12/21) Performance of Urinary Filtration, Intermittent, Less than 6 Hours Per Day (04/24/22) Respiratory Ventilation, 24-96 Consecutive Hours (10/12/21) Transfusion of Nonautologous Red Blood Cells into Peripheral Vein, Percutaneous Approach (02/25/21) Ultrasonography of Superior Vena Cava, Guidance (01/30/22) Labs on day of discharge: Laboratory Results - last 24 hr 05/09/22 05/09/22 05/09/22 10:00 12:50 15:52 Sodium 127 L Potassium 5.8 H Chloride 82 L Carbon Dioxide 31 H Anion Gap 20 BUN 60 H D Creatinine 8.04 H* Estim Creat Clear Calc 5.6 Estimated GFR 5 POC Glucose 149 H 155 H Random Glucose 335 H Calcium 9.2 05/09/22 05/10/22 05/10/22 20:05 07:14 07:30 Sodium 131 L Potassium 4.4 D Chloride 92 L Carbon Dioxide 25 Anion Gap 18 BUN 41 H Creatinine 5.30 H* Estim Creat Clear Calc 8.5 Estimated GFR 8 POC Glucose 189 H 274 H Random Glucose 258 H Calcium 8.6 D Discharge Plan Discharge Anticipated Discharge Date/Time: 05/10/22 09:39 Patient Disposition: Home Health Service Discharge Diagnosis: Asthma/COPD exacerbation Intractable nausea COVID-19 Volume overload secondary to end-stage renal disease Referrals: Sammy Vicente MD [Primary Care Provider] - 1 Week Discharge Medications: Continued buprenorphine-naloxone [Suboxone] 8-2 mg film 2 strip sublingual DAILY diltiazem HCl 180 mg capsule,extended release 24hr 360 mg PO DAILY acetaminophen 500 mg Tablet 500 mg PO Q8H PRN (Reason: Pain, Mild) clonidine HCl 0.2 mg tablet 0.2 mg PO BID insulin aspart U-100 [Novolog PenFill U-100 Insulin] 100 unit/mL Cartridge 1 sliding scale dose SUBCUT USEASDIRECTD Protocol: Insulin Correction Scale Less than or equal to 110 ---- Give (units): 0 111 to 150 Give (units): 0 151 to 200 Give (units): 4 201 to 250 Give (units): 6 251 to 300 Give (units): 8 301 to 350 Give (units): 10 Greater than 350 Give (units): 12 Call MD if Blood Glucose > : 350 docusate sodium [Colace] 100 mg capsule 100 mg PO BID PRN (Reason: Constipation) Qty: 30 0RF amlodipine 10 mg Tablet 10 mg PO BEDTIME Qty: 30 0RF Protocol: Hold for SBP< HOLD for SBP < : 90 Rx Instructions: replaces prior dose of 5 mg daily bumetanide 2 mg Tablet 2 mg PO DAILY pantoprazole 40 mg Tablet,Delayed Release (Dr/Ec) 40 mg PO DAILY melatonin 5 mg Tablet 5 mg PO BEDTIME PRN (Reason: Sleep) S[employer] SCREEN PR[employer] HELPER-Sharifa Rx 1-60-300 mg-mg-mcg Tablet 1 tab PO DAILY fluticasone propionate [Flovent HFA] 110 mcg/actuation Hfa Aerosol Inhaler 1 puff INHALATION BID sennosides [senna] 8.6 mg tablet 1 - 2 tab PO BEDTIME PRN (Reason: constipation) insulin glargine [Lantus U-100 Insulin] 100 unit/mL solution 7 unit subcut DAILY isosorbide mononitrate 30 mg Tablet Extended Release 24 Hr 30 mg PO DAILY Qty: 30 0RF Protocol: Hold for SBP< HOLD for SBP < : 90 aspirin 81 mg tablet,delayed release (DR/EC) 1 tab PO DAILY albuterol sulfate [Ventolin HFA] 90 mcg/actuation HFA aerosol inhaler 2 puff INHALATION Q4-6H PRN (Reason: wheezing) diclofenac sodium 1 % gel 2 g topical BID ondansetron 4 mg tablet,disintegrating 4 mg PO BID PRN (Reason: nausea and vomiting) carvedilol 6.25 mg tablet 1 tab PO BID Spiriva with HandiHaler 18 mcg capsule, w/inhalation device 1 cap inhalation DAILY hydralazine 50 mg tablet 2 tab PO TID hydrocortisone 2.5 % cream with perineal applicator 1 appl DC BID gabapentin 300 mg capsule 1 cap PO DAILY diphenhydramine HCl [Benadryl] 25 mg capsule 25 mg PO DAILY PRN (Reason: allergy symptoms) Qty: 30 0RF polyethylene glycol 3350 [Miralax] 17 gram/dose powder 17 g PO DAILY Qty: 238 0RF albuterol sulfate 2.5 mg /3 mL (0.083 %) solution for nebulization 1 amp inhalation TID PRN (Reason: Shortness Of Breath) Discharge Orders: Discharge Order (Routine); Ordered 05/10/22 Ordered By: Angelica Ashyb Diet: Advance to usual diet Activity on Discharge: As tolerated Stand Alone Forms: Patient Portal Discharge page Care Plan Goals: Complete resolution of symptoms Health Concerns: Asthma/COPD exacerbation Intractable nausea COVID-19 Volume overload secondary to end-stage renal disease Plan of Treatment: Follow-up with primary care provider as needed Take all medications as prescribed Assessment: See discharge summary
[2022-05-10] MEDS: 0.9 % Sodium Chloride Flush 3 ML SYRINGE IVFLUSH (09:54)
[2022-05-10] MEDS: Nicotine 7 MG PATCH.TD24 TRANSDERMA (09:54)
[2022-05-10] MEDS: Buprenorphine/Naloxone 8/2 mg FILM 2 FILM SUBLINGUAL (09:54)
[2022-05-10] MEDS: polyethylene glycoL 3350 17 GM POWD.PACK PO (09:55)
[2022-05-10] MEDS: Heparin Sodium,Porcine 5,000 UNIT/ML VIAL 5000 UNIT SUBCUT (09:55)
[2022-05-10] MEDS: Insulin Lispro 100 UNIT/ML 3 ML VIAL SUBCUT (09:55)
[2022-05-10] MEDS: Insulin Glargine,Hum.rec.anlog 100 UNIT/ML 10 ML VIAL 7 UNIT SUBCUT (09:55)
[2022-05-10] MEDS: carvediloL 6.25 MG TABLET PO (09:56)
[2022-05-10] MEDS: Isosorbide Mononitrate 30 MG TAB.ER.24H PO (09:56)
[2022-05-10] MEDS: Gabapentin 300 MG CAPSULE PO (09:56)
[2022-05-10] MEDS: hydrALAZINE HCl 50 MG TABLET 100 MG PO (09:57)
[2022-05-10] MEDS: Omeprazole 20 MG CAPSULE.DR PO (09:57)
[2022-05-10] MEDS: dilTIAZem HCL CD 180 MG CAP.ER.24H 360 MG PO (09:57)
[2022-05-10] MEDS: predniSONE 20 MG TABLET 40 MG PO (09:57)
[2022-05-10] MEDS: Aspirin Enteric Coated 81 MG TABLET.DR PO (09:57)
[2022-05-10] MEDS: Bumetanide 1 MG TABLET 2 MG PO (09:57)
[2022-05-10] MEDS: cloNIDine HCL 0.2 MG TABLET PO (09:58)
[2022-05-10] MEDS: Multivitamin TABLET 1 TAB PO (09:58)
[2022-05-10] MEDS: LORazepam 1 MG TABLET PO (09:58)
--- NOTE | 2022-05-10 10:01 | MHC.CM.PN ---
Patient has been medically cleared for dc to home today (PT recommended Home with services and Patient refused SNF/STR); [facility] and [facility] CM/Ria at [phone] have been notified of today's dc. Per Ria, [facility] will likely see Patient for home PT if [facility] does not provide home PT. Last IMM addressed 05/08/22.Patient's 47 hours pf [employer] services/week should resume as before.
--- NOTE | 2022-05-10 10:55 | PC.NURSE ---
Alert and oriented. Denies pain, VSS, afebrile, no acute resp. distress noted. Took all scheduled meds. New order to discharge patient home. Went over discharge instructions, follow up apt and medications administrations with patient, verbalized understanding back. [facility] left via car with her DIRECTOR TRANSLATION.
[2022-05-19 06:32] LABS: FT4 by Equilib. Dialysis 2.1 ng/dL (0.9-2.2)
== END 2022-05-10 11:13 | disposition home health service (06) | DRG 640 ==
LOC: HO.ED 23:17 → HO.EDOVER 23:29 → HO.IMC 05-08 07:28
PROVIDERS: Internal Medicine Hypertension Specialist; Physician Assistant Medical; Admitting Provider Internal Medicine; Emergency Provider Emergency Medicine; PCP Internal Medicine; Visit Provider Nurse Practitioner Acute Care
DX: E87.70 Fluid overload, unspecified (principal); J96.21 Acute and chronic respiratory failure with hypoxia; U07.1 COVID-19; N18.6 End stage renal disease; J44.1 Chronic obstructive pulmonary disease with (acute) exacerbation; I13.2 Hypertensive heart and chronic kidney disease with heart failure and with stage 5 chronic kidney disease, or end stage renal disease; I50.32 Chronic diastolic (congestive) heart failure; F11.20 Opioid dependence, uncomplicated; E11.22 Type 2 diabetes mellitus with diabetic chronic kidney disease; E11.40 Type 2 diabetes mellitus with diabetic neuropathy, unspecified; K21.9 Gastro-esophageal reflux disease without esophagitis; F17.210 Nicotine dependence, cigarettes, uncomplicated; J45.30 Mild persistent asthma, uncomplicated; Z99.81 Dependence on supplemental oxygen; Z99.2 Dependence on renal dialysis; Z79.4 Long term (current) use of insulin; Z79.51 Long term (current) use of inhaled steroids; Z79.82 Long term (current) use of aspirin; Z79.899 Other long term (current) drug therapy
CPT/HCPCS: 0241U; 36415; 71045; 80048; 80053; 82803; 82947; 83735; 83880; 84439; 84484; 85025; 90999; 93005; 94640; 94660; 94664; 97162; 99285; J2920; J2930; J3010

== ENCOUNTER 2022-05-24 02:54 | Observation (INO) | payer OTHER, SELFPAY ==
[2022-05-24] VITALS (8 sets, daily range): BP systolic 147–248; BP diastolic 67–96; PULSE 63–91; RESP 14–20; TEMP 36.6–37.2; O2SAT 92–100; BMI 28.3
--- NOTE | ~2022-05-24 | CT_ITS ---
EXAMINATION: CT ABDOMEN AND PELVIS WITHOUT CONTRAST CLINICAL INFORMATION: Abdominal and rectal pain. COMPARISON: 04/28/2022 TECHNIQUE: Multidetector volumetric imaging was performed from the superior aspect of the liver through the pubic symphysis. Sagittal and coronal reformatted images were obtained on the technologist's workstation. This CT examination was performed using dose optimization techniques as appropriate, variously including the following: *Automated exposure control *Adjustment of mA and/or kV according to patient size (this includes techniques or standardized protocols for targeted exams where dose is matched to indication/reason for exam; i.e. extremities or head) *Use of iterative reconstruction technique DLP: 419 mGy-cm FINDINGS: LUNG BASES: Cardiomegaly. Coronary calcifications present. LIVER, GALLBLADDER, AND BILIARY TREE: The liver is normal in size, shape, and attenuation. No focal hepatic lesion or biliary ductal dilatation is present. Cholecystectomy. PANCREAS: Atrophic but otherwise unremarkable. SPLEEN: Unremarkable. ADRENAL GLANDS: Unremarkable. KIDNEYS AND URETERS: The kidneys are normal in size, shape, and attenuation. Stable simple appearing cyst in the upper pole of left kidney. No follow-up required. No hydronephrosis, hydroureter, or calculi seen. Stable mild bilateral perinephric stranding. BLADDER: Unremarkable. GASTROINTESTINAL TRACT: Moderate constipation. Persistent perirectal fat stranding without rectal stool suspicious for proctitis. Normal appendix. Stomach and small bowel unremarkable. ABDOMINAL WALL: No significant hernia is appreciated. Mild anasarca. LYMPH NODES: Normal. VASCULAR: Aorta is atherosclerotic but normal caliber. Stable 1.6 mm right renal artery aneurysm. PELVIC VISCERA: Unremarkable. OSSEOUS STRUCTURES: No acute or suspicious osseous abnormalities. Stable superior plate compression deformity at L3. CT/CT abdomen pelvis wo IV con IMPRESSION: * Persistent perirectal fat stranding without rectal stool, suspicious for proctitis. * Moderate constipation. * Cholecystectomy. 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 Fleischner guidelines were followed.
--- NOTE | ~2022-05-24 | US_ITS ---
EXAMINATION: US VENOUS ULTRASOUND WITH DOPPLER LOWER EXTREMITY, LEFT CLINICAL INFORMATION: Left lower extremity edema. Assess for occult DVT. COMPARISON: Bilateral lower extremity venous ultrasound with Doppler 09/18/2021. TECHNIQUE: Ultrasound of the deep veins is performed from the hip to the calf with compression sonography and color and pulse Doppler assessment. Spectral analysis with color-flow imaging is performed. FINDINGS: There is normal venous compression and respiratory variation and augmented flow. The visualized common femoral vein, superficial femoral vein, profunda femoral vein, popliteal vein, and the trifurcation region shows no evidence of deep venous thrombosis. No popliteal fossa cyst. There is subcutaneous edema are in the calf. Incidental inguinal node present with normal lluvia architecture and normal lluvia color flow, 0.8 cm short axis. US/US venous duplex LE LT IMPRESSION: No DVT demonstrated in the left lower extremity.
[2022-05-24] MEDS: Lidocaine HCl 2 % Urojet 10 ML JEL.PF.APP TOPICAL (03:24)
--- NOTE | 2022-05-24 03:24 | ED_ITS ---
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 Patient came in for rectal pain since yesterday, last bowel movement was 3-4 days ago, patient also is complaining of generalized mild discomfort and abdominal pain, no nausea, no vomiting, no fever, no chills. Patient had multiple ED visits for abdominal pain. Related Data Home Medications Medication Instructions Recorded Confirmed buprenorphine 8 mg-naloxone 2 mg 2 strip sublingual DAILY 10/22/20 05/08/22 sublingual film (Suboxone) diltiazem HCl 180 mg 360 mg PO DAILY 10/22/20 05/08/22 capsule,extended release 24 hr bumetanide 2 mg tablet 2 mg PO DAILY 04/15/21 05/08/22 fluticasone propionate 110 1 puff inhalation BID 04/15/21 05/08/22 mcg/actuation HFA aerosol inhaler (Flovent HFA) melatonin 5 mg tablet 5 mg PO BEDTIME PRN Sleep 04/15/21 05/08/22 pantoprazole 40 mg tablet,delayed 40 mg PO DAILY 04/15/21 05/08/22 release vitamin B comp no.3-folic acid 1 1 tab PO DAILY 04/15/21 05/08/22 mg-vit C 60 mg-biotin 300 mcg tablet (WIRE STRIPPER-Sharifa Rx) sennosides 8.6 mg tablet (senna) 1 - 2 tab PO BEDTIME PRN 05/11/21 05/08/22 constipation acetaminophen 500 mg tablet 500 mg PO Q8H PRN Pain, Mild 06/10/21 05/08/22 clonidine HCl 0.2 mg tablet 0.2 mg PO BID 07/27/21 05/08/22 insulin aspart U-100 100 unit/mL 1 sliding scale dose subcut 07/27/21 05/08/22 subcutaneous cartridge (Novolog USEASDIRECTD PenFill U-100 Insulin aspart) insulin glargine 100 unit/mL 7 unit subcut DAILY 09/18/21 05/08/22 subcutaneous solution (Lantus U-100 Insulin) aspirin 81 mg tablet,delayed 1 tab PO DAILY 10/11/21 05/08/22 release albuterol sulfate 90 mcg/actuation 2 puff inhalation Q4-6H PRN 01/31/22 05/08/22 aerosol inhaler (Ventolin HFA) wheezing diclofenac sodium 1 % topical gel 2 g topical BID 03/09/22 05/08/22 ondansetron 4 mg disintegrating 4 mg PO BID PRN nausea and vomiting 03/09/22 05/08/22 tablet carvedilol 6.25 mg tablet 1 tab PO BID 04/24/22 05/08/22 gabapentin 300 mg capsule 1 cap PO DAILY 04/24/22 05/08/22 hydralazine 50 mg tablet 2 tab PO TID 04/24/22 05/08/22 hydrocortisone 2.5 % topical cream 1 appl AL BID 04/24/22 05/08/22 with perineal applicator tiotropium bromide 18 mcg capsule 1 cap inhalation DAILY 04/24/22 05/08/22 with inhalation device (Spiriva with HandiHaler) albuterol sulfate 2.5 mg/3 mL 1 amp inhalation TID PRN Shortness 05/08/22 05/08/22 (0.083 %) solution for nebulization Of Breath Previous Rx's Medication Instructions Recorded amlodipine 10 mg tablet 10 mg PO BEDTIME #30 tabs 03/07/21 isosorbide mononitrate 30 mg 30 mg PO DAILY #30 tabs 09/20/21 tablet,extended release 24 hr docusate sodium 100 mg capsule 100 mg PO BID PRN Constipation #30 12/04/21 (Colace) caps diphenhydramine HCl 25 mg capsule 25 mg PO DAILY PRN allergy 04/30/22 (Benadryl) symptoms #30 caps polyethylene glycol 3350 17 17 g PO DAILY #238 grams 04/30/22 gram/dose oral powder (Miralax) Allergies Allergy/AdvReac Type Severity Reaction Status Date / Time No Known Allergies Allergy Mild NOT Verified 04/14/22 01:40 APPLICABLE Review of Systems Review of Systems: All other systems are reviewed and are negative Constitutional: Reports as per HPI and Reports no additional constitutional complaints Eyes: Reports as per HPI and Reports no additional eye complaints Reports system reviewed and no additional complaints, except as documented Cardiovascular: Reports as per HPI and Reports no additional cardiovascular complaints Respiratory: Reports as per HPI and Reports no additional respiratory complaints Gastrointestinal: Reports as per HPI and Reports no additional gastrointestinal complaints Genitourinary: Reports no additional female genitourinary complaints Musculoskeletal: Reports no additional musculoskeletal complaints Skin/Breast: Reports system reviewed and no additional complaints, except as docu Psychiatric: Reports no additional psychiatric complaints Endocrine: Reports no additional endocrine complaints Hematologic/Lymphatic: Reports no additional hematologic/lymphatic complaints Allergic/Immunologic: Reports no additional allergic/immunologic complaints Reports system reviewed and no additional complaints, except as documented and Reports Abnormal speech present [facility] Past Medical History Medical History Acute exacerbation of chronic obstructive pulmonary disease (COPD) Acute GI bleeding Anasarca Anemia in chronic kidney disease Ascites Asthma with COPD with exacerbation Constipation COVID COVID-19 virus infection Diabetes mellitus End stage renal disease on dialysis ESRD (end stage renal disease) Essential hypertension Heart failure with preserved ejection fraction Hypertrophic cardiomyopathy Ischemic colitis Opioid withdrawal Pulmonary congestion Surgical History No pertinent past surgical history Family History Family History Other Hypertension Social History Social History Household Members: None Housing: Apartment Do you presently have visiting nurse or other home services: Yes Unable to assess alcohol history related to: Unknown Alcohol intake: never Patient Tobacco Use Status: Current everyday Tobacco user Tobacco use type: Cigarette Cigarette Packs Per Day: 1 Cigarettes Per Day: 3 Years Smoked: 18 e-Cigarette/Vaping Use: Never Used Second Hand Smoke Exposure: No Substance Use Type: Heroin Advance Directives: Yes Advance Directives on File: Yes Advance Directives Date on File: 04/20/21 service: No Current occupational status: unemployed and disabled Physical Exam ED Vital Signs: Vital Signs - 24 hr 05/24/22 02:58 05/24/22 04:20 Temperature 98.6 F 98.4 F Pulse Rate 86 91 Respiratory Rate 14 14 Blood Pressure 224/84 H Pulse Oximetry 95 95 Oxygen Delivery Method Room Air Room Air BMI result Body Mass Index 28.3 Vital signs have been reviewed as appeared to be correct. Blood pressure normal. Heart rate normal. Respiration rate normal. Temperature normal. Oxygen saturation normal. Appearance: Alert. Oriented X3. No acute distress. Head: Normal external exam. Normocephalic. Atraumatic. No Moran signs noted. No raccoon eyes noted Eyes: PERRLA. EOMI. Conjunctiva and sclera normal. Eyelids normal. ENT: TM's Normal. Pharynx normal. Uvula midline. Moist mucous membranes. No trismus noted. No drooling noted. No muffled voice noted. Neck: Normal inspection. Neck supple. FROM. No adenopathy. Thyroid Normal. No meningeal signs. No neck mass noted. CVS: Normal heart rate and rhythm. Heart sound normal. No murmurs noted. Pulses normal throughout. Respiratory: No respiratory distress. Painless inspiration. Breath sounds normal. No wheezes/rales/rhonchi noted. Chest nontender. No accessory muscle usage noted or decreased air movement noted. Abdomen: Soft and nontender. Bowel sounds normal in all 4 quadrants. No distention noted. No organomegaly noted. No visible injury noted. Rectal exam: No stool in the vault, no hemorrhoid, no fluctuation. Back: No CVA tenderness. Full range of motion noted. Skin: Skin warm and dry. Normal skin color. Normal skin turgor. No rashes/lesions/lacerations noted. Extremities: No lower extremity edema. Extremities exhibit normal range of motion. Extremities nontender. Neuro: Oriented X 3. Cranial nerve exam: II-XII are grossly intact No motor deficit. No sensory deficit. Reflexes normal. Course Course Course Narrative: 67-year-old female with history of end-stage renal disease/HD, hypertension presented with severe rectal pain physical exam in CT is consistent with acute proctitis with no distension of the rectum and no stool in the rectum. I will start the patient on Flagyl and levofloxacin. Will give extra dose of amlodipine to control blood pressure patient has no headache, no CP, no SOB. Medications Administered Discontinued Medications Generic Name Dose Route Start Last Admin Trade Name Freq PRN Reason Stop Dose Admin Acetaminophen 650 mg 05/24/22 04:24 05/24/22 04:30 Acetaminophen 325 Mg Tablet PO 05/24/22 04:25 650 mg ONCE ONE Administration Lidocaine HCl 10 ml 05/24/22 03:16 05/24/22 03:24 Lidocaine Hcl 2 % Urojet 10 Ml Jel.Pf.Gautam TOPICAL 05/24/22 03:17 10 ml ONCE ONE Administration Ondansetron HCl 4 mg 05/24/22 03:30 05/24/22 03:37 Ondansetron Hcl 4 Mg/2 Ml Vial IVPUSH 05/24/22 03:31 4 mg ONCE ONE Administration Medical Decision Making Differential Diagnosis Differential Diagnoses: The differential diagnosis associated with the presentation includes (Proctitis, rectal abscess, rectal impaction, essential hypertension.) Admission/Observation Consideration of admission/observation: Escalation of care including admission/observation considered Consult Healthcare Provider Management of the patient was discussed with: Hospitalist Lab Data MDM Lab Attestation statement: I reviewed the patient's lab results. Result Diagrams: 05/24/22 03:29 05/24/22 03:29 Labs: Lab Results 05/24/22 05/24/22 Range/Units 03:29 03:29 WBC 8.4 (4.8-10.8) X10*3/uL RBC 3.51 L (4.20-5.50) X10*6/uL Hgb 10.6 L (12.0-16.0) g/dl Hct 32.9 L (37.0-47.0) % MCV 93.7 (80.0-98.0) fL MCH 30.2 (27.0-33.0) pg MCHC 32.2 (31.0-35.0) g/dl RDW 14.8 (11.0-16.0) % Plt Count 217 (160-400) X10*3/uL MPV 9.8 (9.4-12.3) fL Immature Gran % (Auto) 0.4 (0.0-0.4) % Neut % (Auto) 74.9 H (45-73) % Lymph % (Auto) 10.1 L (20-40) % Atkinson % (Auto) 10.2 (2-11) % Eos % (Auto) 4.0 (0-4) % Baso % (Auto) 0.4 (0-2) % Lymph # (Auto) 0.9 L (1.2-4.9) X10*3/uL Atkinson # (Auto) 0.9 (0.1-1.2) X10*3/uL Eos # (Auto) 0.3 (0.0-0.4) X10*3/uL Baso # (Auto) 0.0 (0.0-0.2) X10*3/uL Abs Immat Gran (auto) 0.03 (0.00-0.03) X10*3/uL Absolute Neuts (auto) 6.3 (2.0-8.3) x10*3/uL Absolute Nucleated RBC 0.000 (0.0-0.012) X10*3/uL Nucleated RBC % (auto) 0.0 (0.0-0.2) /100WBC Sodium 132 L (135-145) mmol/L Potassium 4.8 (3.3-5.1) mmol/L Chloride 91 L (96-108) mmol/L Carbon Dioxide 27 (22-29) mmol/L Anion Gap 19 (12-20) BUN 33 H (9-16) mg/dL Creatinine 4.87 H* (0.5-1.4) mg/dL Estim Creat Clear Calc 9.9 Estimated GFR 9 Random Glucose 136 H (60-115) mg/dL Calcium 9.0 (8.4-10.2) mg/dL Total Bilirubin 0.5 (0.0-1.0) mg/dL Direct Bilirubin < 0.2 (0.0-0.5) mg/dL AST 27 (5-31) U/L ALT 13 (0-31) U/L Alkaline Phosphatase 214 H (39-117) U/L Total Protein 7.4 (6.5-8.0) g/dL Albumin 4.1 (3.5-5.0) g/dL Lipase 11 (8-78) U/L Independent Interpretation I performed an independent interpretation of an: CT Scan (Abdomen and pelvis: Proctitis, no rectal abscess corona) Radiology Impression Discussion of test interpretation with radiology: I have reviewed the radiologist's reading. (* Persistent perirectal fat stranding without rectal stool, suspicious for proctitis. * Moderate constipation. * Cholecystectomy. 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 ) External Record Review External record reviewed: Inpatient record Discharge Plan Discharge Clinical Impression: Acute proctitis, Hypertension, End stage renal disease on dialysis Patient Disposition: Admitted As Inpatient
[2022-05-24 03:34] LABS: MANUAL DIFF FLAG NO
[2022-05-24 03:35] LABS: Basophils Percent Auto 0.4 % (0-2); Eosinophils Absolute Auto 0.3 X10*3/uL (0.0-0.4); Hematocrit 32.9 % (37.0-47.0); Hemoglobin 10.6 g/dl (12.0-16.0); Imm Gran Abs Auto 0.03 X10*3/uL (0.00-0.03); Imm Gran Pct Auto 0.4 % (0.0-0.4); Lymphocytes Absolute Auto 0.9 X10*3/uL (1.2-4.9); Lymphocytes Percent Auto 10.1 % (20-40); Mean Corpuscular HGB Conc 32.2 g/dl (31.0-35.0); Mean Corpuscular Hemoglobin 30.2 pg (27.0-33.0); Mean Corpuscular Volume 93.7 fL (80.0-98.0); Mean Platelet Volume 9.8 fL (9.4-12.3); Monocytes Absolute Auto 0.9 X10*3/uL (0.1-1.2); Monocytes Percent Auto 10.2 % (2-11); Neutrophils Absolute Auto 6.3 x10*3/uL (2.0-8.3); Neutrophils Percent Auto 74.9 % (45-73); Platelet Count 217 X10*3/uL (160-400); Red Blood Count 3.51 X10*6/uL (4.20-5.50); Red Cell Distribution Width 14.8 % (11.0-16.0); White Blood Count 8.4 X10*3/uL (4.8-10.8)
[2022-05-24] MEDS: ondansetron HCL 4 MG/2 ML VIAL IVPUSH ×4 (03:37→16:59)
[2022-05-24 03:57] LABS: Alanine Aminotransferase 13 U/L (0-31); Albumin Level 4.1 g/dL (3.5-5.0); Alkaline Phosphatase 214 U/L (39-117); Anion Gap 19 (12-20); Aspartate Amino Transferase 27 U/L (5-31); Bilirubin Direct < 0.2 mg/dL (0.0-0.5); Bilirubin Total 0.5 mg/dL (0.0-1.0); Blood Urea Nitrogen 33 mg/dL (9-16); Carbon Dioxide 27 mmol/L (22-29); Chloride 91 mmol/L (96-108); Creatinine Clr Calc Pharmacy 9.9; Estimated Glomerular Filt Rate 9; Glucose Random 136 mg/dL (60-115); Lipase 11 U/L (8-78); Potassium 4.8 mmol/L (3.3-5.1); Sodium 132 mmol/L (135-145); Total Protein 7.4 g/dL (6.5-8.0)
[2022-05-24] MEDS: Acetaminophen 325 MG TABLET 650 MG PO (04:30)
--- NOTE | 2022-05-24 04:53 | PC.NURSE ---
Pt resting quietly.
[2022-05-24] MEDS: amLODIPine Besylate 10 MG TABLET PO (05:13)
[2022-05-24] MEDS: levoFLOXacin/D5W 500 MG/100 ML PIGGYBACK 100 MG IV (05:13)
[2022-05-24 06:19] LABS: Influenza A PCR NEGATIVE (Negative); Influenza B PCR NEGATIVE (Negative); Resp Syncy Virus RNA Qual PCR NEGATIVE (Negative); SARS COV2 PCR INHOUSE NEGATIVE (Negative)
--- NOTE | 2022-05-24 07:05 | PC.NURSE ---
assumed care of patient, pt aox3, calm and cooperative, VSS, IV abx infusing at this time
[2022-05-24] MEDS: metroNIDAZOLE/NS 500 MG/100 ML PIGGYBACK 100 MG IV (07:20)
--- NOTE | 2022-05-24 07:38 | PHA.MEDREC ---
Pharmacy Consult ? Medication Reconciliation Pharmacy has completed the medication reconciliation. Pt recently discharged, used medical record and claim history
--- NOTE | 2022-05-24 09:06 | PM.IMHP ---
History of Present Illness Date of Service: 05/24/22 Chief Complaint: rectal pain The patient is a 67 y/o F with a PMH of COPD, ESRD on HD TTHS, DM, chronic constpiation, HFpEF, Ishcemic colitis, HTN who presents to the ED with complaints of rectal pain. The patient is primarily Armenian speaking and hence, history is obtained with the help of a Armenian intreter. However, despite this, the patient remains a vague historian. She reprots that she has chronic constipation and moves her bowels about twice a week. Recently, this has worsened and her last BM, it appears has been longer than a few days. She states that she has the urge to go, but upon defication the day prior to admission, she felt pain and since then it has not subsided. She denies any abdominal pain. She denies any nausea or vomiting. She denies any bleeding, rectal or otherwise. No reports of fevers. In the Ed, the patient's CT abd/pelvis showed proctitis. She was given IV antibiotics, anti-emetics and tylenol. She will be admitted for further management. Review of Systems Review of Systems: negative except HPI [facility] Medical History Acute exacerbation of chronic obstructive pulmonary disease (COPD) Acute GI bleeding Anasarca Anemia in chronic kidney disease Ascites Asthma with COPD with exacerbation Constipation COVID COVID-19 virus infection Diabetes mellitus End stage renal disease on dialysis ESRD (end stage renal disease) Essential hypertension Heart failure with preserved ejection fraction Hypertrophic cardiomyopathy Ischemic colitis Opioid withdrawal Pulmonary congestion Family History Other Hypertension Surgical History No pertinent past surgical history Social History Household Members: None Housing: Apartment Do you presently have visiting nurse or other home services: Yes Unable to assess alcohol history related to: Unknown Alcohol intake: never Patient Tobacco Use Status: Current everyday Tobacco user Tobacco use type: Cigarette Cigarette Packs Per Day: 1 Cigarettes Per Day: 3 Years Smoked: 18 e-Cigarette/Vaping Use: Never Used Second Hand Smoke Exposure: No Substance Use Type: Heroin Advance Directives: Yes Advance Directives on File: Yes Advance Directives Date on File: 04/20/21 service: No Current occupational status: unemployed and disabled Meds Allergies Allergy/AdvReac Type Severity Reaction Status Date / Time No Known Allergies Allergy Mild NOT Verified 04/14/22 01:40 APPLICABLE Active Medications: Current Medications Acetaminophen (Acetaminophen 325 Mg Tablet) 650 mg PO Q6H PRN PRN Reason: Pain, Mild (Pain Scale 1-3) Aspirin (Aspirin Enteric Coated 81 Mg Tablet.Dr) 81 mg PO DAILY [facility] Ondansetron HCl (Ondansetron Hcl 4 Mg/2 Ml Vial) 4 mg IVPUSH Q8H PRN PRN Reason: Nausea and Vomiting Pharmacy Consult (Consult Rx Perform Med Rec) 1 each MISCELLANE ONCE PRN PRN Reason: Consult order Sodium Chloride (0.9 % Sodium Chloride Flush 3 Ml Syringe) 3 ml IVFLUSH QSHIFT [facility] Home Medications Medication Instructions Recorded Confirmed Last Taken Type buprenorphine 8 mg-naloxone 2 mg 2 strip sublingual DAILY 10/22/20 05/24/22 05/06/22 History sublingual film (Suboxone) diltiazem HCl 180 mg 360 mg PO DAILY 10/22/20 05/24/22 05/06/22 History capsule,extended release 24 hr bumetanide 2 mg tablet 2 mg PO DAILY 04/15/21 05/24/22 05/06/22 History fluticasone propionate 110 1 puff inhalation BID 04/15/21 05/24/22 Unknown History mcg/actuation HFA aerosol inhaler (Flovent HFA) melatonin 5 mg tablet 5 mg PO BEDTIME PRN Sleep 04/15/21 05/24/22 Unknown History pantoprazole 40 mg tablet,delayed 40 mg PO DAILY 04/15/21 05/24/22 05/06/22 History release vitamin B comp no.3-folic acid 1 1 tab PO DAILY 04/15/21 05/24/22 05/06/22 History mg-vit C 60 mg-biotin 300 mcg tablet ([employer]) sennosides 8.6 mg tablet (senna) 1 - 2 tab PO BEDTIME PRN 05/11/21 05/24/22 Unknown History constipation acetaminophen 500 mg tablet 500 mg PO Q8H PRN Pain, Mild 06/10/21 05/24/22 Unknown History clonidine HCl 0.2 mg tablet 0.2 mg PO BID 07/27/21 05/24/22 05/06/22 History insulin aspart U-100 100 unit/mL 1 sliding scale dose subcut 07/27/21 05/24/22 05/06/22 History subcutaneous cartridge (Novolog USEASDIRECTD PenFill U-100 Insulin aspart) insulin glargine 100 unit/mL 7 unit subcut DAILY 09/18/21 05/24/22 05/06/22 History subcutaneous solution (Lantus U-100 Insulin) aspirin 81 mg tablet,delayed 1 tab PO DAILY 10/11/21 05/24/22 05/06/22 History release albuterol sulfate 90 mcg/actuation 2 puff inhalation Q4H PRN wheezing 01/31/22 05/24/22 Unknown History aerosol inhaler (Ventolin HFA) diclofenac sodium 1 % topical gel 2 g topical BID 03/09/22 05/24/22 05/06/22 History ondansetron 4 mg disintegrating 4 mg PO BID PRN nausea and vomiting 03/09/22 05/24/22 Unknown History tablet carvedilol 6.25 mg tablet 1 tab PO BID 04/24/22 05/24/22 05/06/22 History gabapentin 300 mg capsule 1 cap PO DAILY 04/24/22 05/24/22 05/06/22 History hydralazine 50 mg tablet 2 tab PO TID 04/24/22 05/24/22 05/06/22 History hydrocortisone 2.5 % topical cream [address] BID 04/24/22 05/24/22 Unknown History with perineal applicator tiotropium bromide 18 mcg capsule 1 cap inhalation DAILY 04/24/22 05/24/22 Unknown History with inhalation device (Spiriva with HandiHaler) albuterol sulfate 2.5 mg/3 mL 1 amp inhalation TID PRN Shortness 05/08/22 05/24/22 Unknown History (0.083 %) solution for nebulization Of Breath Physical Exam Vital Signs and Narrative: Vital Signs: Last Vital Signs Temp 99.0 F 05/24/22 07:14 Pulse 82 05/24/22 07:14 Resp 14 05/24/22 07:14 BP 181/72 H 05/24/22 07:14 Pulse Ox 96 05/24/22 07:14 O2 Del Method 05/24/22 07:14 BMI result Body Mass Index 28.3 Const: Other: Constitutional - Awake and Alert, No apparent distress Eyes - PERRLA, EOMI Cardiovascular - S1S2, RRR, No edema Respiratory - Normal lung expansion, Normal respiratory effort, No respiratory distress, CTA bilaterally Gastrointestinal - NT / ND; +BS; No rebound or guarding - No CVA tenderness Extremities - no calf tenderness bilaterally, no swelling Musculoskeletal - Normal inspection, normal ROM Skin - Warm/Dry Neurological - Alert & oriented x3, No focal deficit Psychological - Appropriate affect Results Labs CBC and Chem 7: 05/24/22 03:29 05/24/22 03:29 Labs: Laboratory Results - last 24 hr 05/24/22 05/24/22 05/24/22 03:29 03:29 05:22 MCV 93.7 MCH 30.2 MCHC 32.2 RDW 14.8 Plt Count 217 MPV 9.8 Immature Gran % (Auto) 0.4 Neut % (Auto) 74.9 H Lymph % (Auto) 10.1 L Rowan % (Auto) 10.2 Eos % (Auto) 4.0 Baso % (Auto) 0.4 Lymph # (Auto) 0.9 L Rowan # (Auto) 0.9 Eos # (Auto) 0.3 Baso # (Auto) 0.0 Abs Immat Gran (auto) 0.03 Absolute Neuts (auto) 6.3 Absolute Nucleated RBC 0.000 Nucleated RBC % (auto) 0.0 Anion Gap 19 Estim Creat Clear Calc 9.9 Estimated GFR 9 Random Glucose 136 H Calcium 9.0 Total Bilirubin 0.5 Direct Bilirubin < 0.2 AST 27 ALT 13 Alkaline Phosphatase 214 H Total Protein 7.4 Albumin 4.1 Lipase 11 Influenza Type A (PCR) NEGATIVE Influenza Type B (PCR) NEGATIVE RSV RNA Qual (PCR) NEGATIVE SARS-CoV-2 RNA (RT-PCR) NEGATIVE Imaging Radiologist's Impressions: Impressions Abdomen/Pelvis CT 05/24/22 04:14 IMPRESSION: * Persistent perirectal fat stranding without rectal stool, suspicious for proctitis. * Moderate constipation. * Cholecystectomy. 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 Fleischner guidelines were followed. Assessment and Plan (1) Acute proctitis: Status: Acute Plan 67 yo F presenting with rectal pain. CT scan shows proctitis and moderate constipation. She will be admitted under obs and will have GI consult. 1. Proctitis Moderate stool burden seen in the colon, but the rectum without stool and persistent fat stranding. Given IV antibiotics in the ED, hold off further abx for now Will consult Gi for further input pain control 2. ESRD on HD T, , S -- states she went on her last scheduled day (day prior to admission); next due tomorrow consult nephrology 3. HTN on 2 ccb (norvasc + caridzem); given norvasc in the ED for elevated BP, will hold cardizem this AM; to verify that the patient is actually supposed to be on both 4. DM basal+bolus 5. Chronic copd continue baseline meds 6. Chronic constipation bowel regime 7. LLE swelling on exam appears slightly more edematous compared to right; some TTP will check venous doppler to rule out DVT Full Code DVT pptx, heparin (will initiate after doppler completed). Time Spent With Patient Time: Total time managing care of this patient today ____ minutes. Quality Stroke Does the patient have a stroke diagnosis?: No VTE Prior VTE?: No VTE Risk Level:: Medical - moderate - high VTE Device Contraindication: Treatment Not Indicated VTE Drug Contraindication: N/A - Med Ordered
--- NOTE | 2022-05-24 09:20 | PC.NURSE ---
pt yelling out into hallways, making herself vomit, pt states this coffee is disgusting . pt declined her breakfast tray. refusing AM meds at this time and all care. made aware
[2022-05-24] MEDS: hydrALAZINE HCl 50 MG TABLET 100 MG PO ×3 (10:16→22:52)
[2022-05-24] MEDS: carvediloL 6.25 MG TABLET PO ×2 (10:17→22:52)
[2022-05-24] MEDS: Bumetanide 1 MG TABLET 2 MG PO (10:17)
[2022-05-24] MEDS: Aspirin Enteric Coated 81 MG TABLET.DR PO (10:18)
[2022-05-24] MEDS: Gabapentin 300 MG CAPSULE PO (10:18)
[2022-05-24] MEDS: Insulin Glargine,Hum.rec.anlog 100 UNIT/ML 10 ML VIAL 7 UNIT SUBCUT (10:18)
[2022-05-24] MEDS: Isosorbide Mononitrate 30 MG TAB.ER.24H PO (10:18)
[2022-05-24] MEDS: polyethylene glycoL 3350 17 GM POWD.PACK PO (10:19)
[2022-05-24] MEDS: Buprenorphine/Naloxone 8/2 mg FILM 2 FILM SUBLINGUAL (10:19)
[2022-05-24] MEDS: cloNIDine HCL 0.2 MG TABLET PO ×2 (10:19→22:52)
--- NOTE | 2022-05-24 11:56 | P.CONNP_ITS ---
History of Present Illness Reason for Consult Consult date: 05/24/22 Chief Complaint Chief complaint: Rectal pain History of Present Illness Narrative: 67 year old patient with hisotry of ESRD admitted with acute proctitis. She usually has hemodialysis Sunday, and Sunday. At the time of the consultation she denies fever, chills, pain, shortness of breath, abdominal pain vomiting or diarrhea. She had chronic constipation. She states that she has the urge to go, but upon defication the day prior to admission, she felt pain and since then it has not subsided. CT abd/pelvis showed proctitis. Review of Systems Review of Systems 10 points ROS negative except for peertinent in [facility] Past Medical History Medical History Acute exacerbation of chronic obstructive pulmonary disease (COPD) Acute GI bleeding Anasarca Anemia in chronic kidney disease Ascites Asthma with COPD with exacerbation Constipation COVID COVID-19 virus infection Diabetes mellitus End stage renal disease on dialysis ESRD (end stage renal disease) Essential hypertension Heart failure with preserved ejection fraction Hypertrophic cardiomyopathy Ischemic colitis Opioid withdrawal Pulmonary congestion Family History Family History Other Hypertension Surgical History Surgical History No pertinent past surgical history Social History Social History Household Members: None Housing: Apartment Do you presently have visiting nurse or other home services: Yes Unable to assess alcohol history related to: Unknown Alcohol intake: never Patient Tobacco Use Status: Current everyday Tobacco user Tobacco use type: Cigarette Cigarette Packs Per Day: 1 Cigarettes Per Day: 3 Years Smoked: 18 e-Cigarette/Vaping Use: Never Used Second Hand Smoke Exposure: No Substance Use Type: Heroin Advance Directives: Yes Advance Directives on File: Yes Advance Directives Date on File: 04/20/21 service: No Current occupational status: unemployed and disabled Meds Allergies Allergy/AdvReac Type Severity Reaction Status Date / Time No Known Allergies Allergy Mild NOT Verified 04/14/22 01:40 APPLICABLE Active Medications: Current Medications Acetaminophen (Acetaminophen 325 Mg Tablet) 650 mg PO Q6H PRN PRN Reason: Pain, Mild (Pain Scale 1-3) Aspirin (Aspirin Enteric Coated 81 Mg Tablet.) 81 mg PO DAILY [facility] Last Admin: 05/24/22 10:18 Dose: 81 mg Bumetanide (Bumetanide 1 Mg Tablet) 2 mg PO DAILY [facility]; Protocol Last Admin: 05/24/22 10:17 Dose: 2 mg Buprenorphine/Naloxone (Buprenorphine/Naloxone 8/2 Mg Film) 2 film SUBLINGUAL DAILY [facility] Last Admin: 05/24/22 10:19 Dose: 2 film Carvedilol (Carvedilol 6.25 Mg Tablet) 6.25 mg PO BID [facility]; Protocol Last Admin: 05/24/22 10:17 Dose: 6.25 mg Clonidine HCl (Clonidine Hcl 0.2 Mg Tablet) 0.2 mg PO BID [facility]; Protocol Last Admin: 05/24/22 10:19 Dose: 0.2 mg Diphenhydramine HCl (Diphenhydramine Hcl 25 Mg Capsule) 25 mg PO DAILY PRN PRN Reason: allergy symptoms Docusate Sodium (Docusate Sodium 100 Mg Capsule) 100 mg PO BID PRN PRN Reason: Constipation Fluticasone Propionate (Fluticasone Propionate 100 Mcg Blst.W.Dev) 1 puff INHALE RBID [facility] Gabapentin (Gabapentin 300 Mg Capsule) 300 mg PO DAILY [facility] Last Admin: 05/24/22 10:18 Dose: 300 mg Hydralazine HCl (Hydralazine Hcl 50 Mg Tablet) 100 mg PO TID [facility]; Protocol Last Admin: 05/24/22 10:16 Dose: 100 mg Insulin Glargine (Insulin Glargine,Hum.Rec.Anlog 100 Unit/Ml 10 Ml Vial) 7 unit SUBCUT DAILY [facility] Last Admin: 05/24/22 10:18 Dose: 7 unit Isosorbide Mononitrate (Isosorbide Mononitrate 30 Mg Tab.Er.24h) 30 mg PO DAILY [facility]; Protocol Last Admin: 05/24/22 10:18 Dose: 30 mg Melatonin (Melatonin 3 Mg Tablet) 6 mg PO BEDTIME PRN PRN Reason: Sleep Multivitamins/Vitamin C (Multivitamin Tablet) 1 tab PO DAILY [facility] Last Admin: 05/24/22 10:19 Dose: Not Given Omeprazole (Omeprazole 20 Mg Capsule.) 20 mg PO DAILY@0630 [facility] Ondansetron HCl (Ondansetron Hcl 4 Mg/2 Ml Vial) 4 mg IVPUSH Q8H PRN PRN Reason: Nausea and Vomiting Last Admin: 05/24/22 09:18 Dose: 4 mg Pharmacy Consult (Consult Rx Perform Med Rec) 1 each MISCELLANE ONCE PRN PRN Reason: Consult order Polyethylene Glycol (Polyethylene Glycol 3350 17 Gm Powd.Pack) 17 gm PO DAILY [facility] Last Admin: 05/24/22 10:19 Dose: 17 gm Sodium Chloride (0.9 % Sodium Chloride Flush 3 Ml Syringe) [facility] Tiotropium [place] (Tiotropium [place] 18 Mcg Cap.W.Dev) 1 puff INHALE RDAILY [facility] Last Admin: 05/24/22 10:18 Dose: Not Given Home Medications Medication Instructions Recorded Confirmed Last Taken Type buprenorphine 8 mg-naloxone 2 mg 2 strip sublingual DAILY 10/22/20 05/24/2204/20 History sublingual film (Suboxone) diltiazem HCl 180 mg 360 mg PO DAILY 10/22/20 05/24/22 05/06/22 History capsule,extended release 24 hr bumetanide 2 mg tablet 2 mg PO DAILY 04/15/21 05/24/22 05/06/22 History fluticasone propionate 110 1 puff inhalation BID 04/15/21 05/24/22 Unknown History mcg/actuation HFA aerosol inhaler (Flovent HFA) melatonin 5 mg tablet 5 mg PO BEDTIME PRN Sleep 04/15/21 05/24/22 Unknown History pantoprazole 40 mg tablet,delayed 40 mg PO DAILY 04/15/21 05/24/22 05/06/22 History release vitamin B comp no.3-folic acid 1 1 tab PO DAILY 04/15/21 05/24/22 05/06/22 History mg-vit C 60 mg-biotin 300 mcg tablet ([employer]) sennosides 8.6 mg tablet (senna) 1 - 2 tab PO BEDTIME PRN 05/11/21 05/24/22 Unknown History constipation acetaminophen 500 mg tablet 500 mg PO Q8H PRN Pain, Mild 06/10/21 05/24/22 Unk nown History clonidine HCl 0.2 mg tablet 0.2 mg PO BID 07/27/21 05/24/22 05/06/22 History insulin aspart U-100 100 unit/mL 1 sliding scale dose subcut 07/27/21 05/24/22 05/06/22 History subcutaneous cartridge (Novolog USEASDIRECTD PenFill U-100 Insulin aspart) insulin glargine 100 unit/mL 7 unit subcut DAILY 09/18/21 05/24/22 05/06/22 History subcutaneous solution (Lantus U-100 Insulin) aspirin 81 mg tablet,delayed 1 tab PO DAILY 10/11/21 05/24/22 05/06/22 History release albuterol sulfate 90 mcg/actuation 2 puff inhalation Q4H PRN wheezing 01/31/22 05/24/22 Unknown History aerosol inhaler (Ventolin HFA) diclofenac sodium 1 % topical gel 2 g topical BID 03/09/22 05/24/22 05/06/22 History ondansetron 4 mg disintegrating 4 mg PO BID PRN nausea and vomiting 03/09/22 05/24/22 Unknown History tablet carvedilol 6.25 mg tablet 1 tab PO BID 04/24/22 05/24/22 05/06/22 History gabapentin 300 mg capsule 1 cap PO DAILY 04/24/22 05/24/22 05/06/22 History hydralazine 50 mg tablet 2 tab PO TID 04/24/22 05/24/22 05/06/22 History hydrocortisone 2.5 % topical cream 1 appl LA BID 04/24/22 05/24/22 Unknown History with perineal applicator tiotropium bromide 18 mcg capsule 1 cap inhalation DAILY 04/24/22 05/24/22 Unknown History with inhalation device (Spiriva with HandiHaler) albuterol sulfate 2.5 mg/3 mL 1 amp inhalation TID PRN Shortness 05/08/22 05/24/22 Unknown History (0.083 %) solution for nebulization Of Breath Physical Exam Vital Signs: Last Vital Signs Temp 97.9 F 05/24/22 11:10 Pulse 78 05/24/22 11:10 Resp 20 05/24/22 11:10 BP 193/86 H 05/24/22 11:10 Pulse Ox 100 05/24/22 11:10 O2 Del Method 05/24/22 11:10 BMI result Body Mass Index 28.3 Const General: no acute distress HEENT Head: Yes normocephalic and Yes atraumatic Neck Neck: Yes supple Resp Auscultation: clear to auscultation bilaterally Cardio Heart sounds: S1 normal heart sound present and S2 normal heart sound present GI Palpation (GI): Soft to palpation and nontender Extrem General: No edema Results Lab Results Result Diagrams: 05/24/22 03:29 05/24/22 03:29 Lab results: Chemistry 05/24/22 03:29 Sodium 132 L Potassium 4.8 Carbon Dioxide 27 BUN 33 H Creatinine 4.87 H* Calcium 9.0 Hematology 05/24/22 03:29 WBC 8.4 Hgb 10.6 L Plt Count 217 Assessment and Plan (1) ESRD (end stage renal disease): Status: Acute (2) Acute proctitis: Status: Acute (3) Anemia: Status: Acute Plan HD in am renal diet phosphate binders [id number] per protocol Time Spent With Patient Time: Total time managing care of this patient today ____ minutes. Procedures Date of Service Date of Service: 05/24/22
[2022-05-24 12:23] LABS: Glucose, Whole Blood 139 mg/dL (60-115)
--- NOTE | 2022-05-24 12:28 | PC.NURSE ---
patient sleeping, wakes to verbal stimulus, pt requesting po- given diet gingerale per request, double lumen dialysis cath to rt chest, resting comfortably at this time, will continue to monitor
[2022-05-24] MEDS: PEG 3350/Na Sulf,Bicarb,Cl/KCL 4,000 ML SOLN.RECON 4000 ML PO (16:28)
[2022-05-24] MEDS: 0.9 % Sodium Chloride Flush 3 ML SYRINGE IVFLUSH (16:35)
[2022-05-24 17:57] LABS: Glucose, Whole Blood 155 mg/dL (60-115)
--- NOTE | 2022-05-24 18:16 | PM.EVENT ---
Event Note Date of Service: 05/24/22 Event Note: GI Colonoscopy planned for 05/25 to further evaluate symptoms and ct results. Time Spent With Patient Time: Total time managing care of this patient today ____ minutes.
--- NOTE | 2022-05-24 18:18 | MHC.SHP ---
Pre-Procedural Eval Section A Date of Service: 05/24/22 The patient is an INPATIENT: Yes Changes since office visit: No Cold of Flu in the past 2 weeks, No New Medical Problems, No Changes in Medication and No Patient answered all questions The History & Physical has been completed within 30 days and I have reviewed it.: Yes Section B Chief Complaint: Rectal pain Allergies: Allergies Allergy/AdvReac Type Severity Reaction Status Date / Time No Known Allergies Allergy Mild NOT Verified 04/14/22 01:40 APPLICABLE Plan I have reviewed the history and physical and performed a pertinent physical examination on my patient. No changes have occurred unless specified. Time Spent With Patient Time: Total time managing care of this patient today ____ minutes.
--- NOTE | 2022-05-24 19:19 | PC.NURSE ---
dr anthony had returned call and asked that this nurse let the zofran kick in and attempt to have the patient drink the bowel prep. patient is refusing to drink the bowel prep- dr. anthony was notified that the patient refused and is requesting food. Per dr. anthony pt is to be clear liquids and he will add additional orders.
[2022-05-24 22:26] LABS: Glucose, Whole Blood 129 mg/dL (60-115)
--- NOTE | 2022-05-24 22:55 | PC.NURSE ---
pt 2100 meds delayed due to arrival of high needs pt in overflow, medicated per provider order. pt is NPO.
[2022-05-25] VITALS (10 sets, daily range): BP systolic 134–192; BP diastolic 63–89; PULSE 59–72; RESP 14–20; TEMP 36.1–37.1; O2SAT 91–98
[2022-05-25] MEDS: 0.9 % Sodium Chloride Flush 3 ML SYRINGE IVFLUSH ×2 (02:11→15:50)
--- NOTE | 2022-05-25 03:03 | CONS_ITS ---
DATE OF SERVICE: 05/24/2022 REFERRING PHYSICIAN: Dr. Combs REASON FOR CONSULTATION: Abnormal CT of the colon and rectal pain. HISTORY OF PRESENT ILLNESS: The patient is a pleasant 67-year-old woman, who was admitted to the hospital after presenting to the emergency room early this morning with complaints of rectal pain. Symptoms began yesterday and were associated with some constipated symptoms. She denies any rectal bleeding. She was evaluated in the emergency department and rectal examination reportedly was negative for any stool, hemorrhoids, or fluctuance. CT scanning was obtained, which is reviewed. This is interpreted as showing persistent perirectal fat stranding without stool, suspicious for proctitis. The patient has a prior history of undergoing colonoscopy in June of 2007 to the right colon for colon cancer screening. She had some stool, but no polypoid lesion identified. A followup barium enema on July 03 showed no lesions on examined part of the colon. Followup colonoscopy was recommended in 08/2017, but the patient has been noncompliant with followup. PAST MEDICAL HISTORY: 1. End-stage renal disease, on hemodialysis. 2. Diabetes. 3. COPD. 4. Chronic constipation and history of ischemic colitis. 5. Heart failure with preserved ejection fraction. 6. Hypertension. 7. COVID-19 infection. 8. Hypertrophic cardiomyopathy. CURRENT MEDICATIONS: Her current medication list is reviewed in the chart. ALLERGIES: THERE ARE NONE REPORTED. FAMILY HISTORY: This is reviewed with the patient and in the electronic medical record. SOCIAL HISTORY: There is no current substance abuse. REVIEW OF SYSTEMS: SKIN: No pruritus. HEENT: Negative. CARDIOPULMONARY: No shortness of breath or chest pain. GASTROINTESTINAL: As above. GENITOURINARY: Negative. NEUROPSYCHIATRIC: Negative. PHYSICAL EXAMINATION: GENERAL: Shows a pleasant female, lying comfortably in bed, complaining some rectal discomfort. VITAL SIGNS: Reviewed in electronic medical record and are stable. SKIN: Anicteric. HEENT: Shows no scleral icterus. NECK: Without lymphadenopathy or thyromegaly. LUNGS: Clear. HEART: Shows a regular rate and rhythm. S1 and S2. No murmur. ABDOMEN: Soft without focal masses or tenderness. Bowel sounds are present. No organomegaly is noted. EXTREMITIES: Without edema. CT scanning in laboratory studies are reviewed. I discussed the CT findings with the patient. I recommended further evaluation with lower GI tract endoscopy as she is overdue for followup on this. We discussed the differential diagnosis including colitis due to infectious, ischemic, or inflammatory causes. She understands risks and benefits of colonoscopy and agrees to proceed. Thanks for asking me to see her. I will follow her in the hospital with you. MD LETY Doshi/GRACIE / [id number]
--- NOTE | 2022-05-25 06:50 | PC.NURSE ---
Received call from [facility] spoke to nurse Char. Pt is due for dialysis this morning at 6 am, is scheduled on Tuesdays, , and Sunday. Per Char pt tends to drink a lot of fluids and tends to be in fluid overload when she comes in for dialysis. Dr. Daniel notified via [employer].
--- NOTE | 2022-05-25 06:53 | PC.NURSE ---
Addendum entered by Gely Fox 05/25/22 06:56: wrong patient entry. Original Note: abetolol ivp ordered for hypertensive urgency. Pt BP 136/[address] Daniel notified via [employer] held per hospitalist.
[2022-05-25 07:38] LABS: Glucose, Whole Blood 70 mg/dL (60-115)
[2022-05-25] MEDS: ondansetron HCL 4 MG/2 ML VIAL IVPUSH ×2 (07:41→20:10)
[2022-05-25] MEDS: Sodium Phosphate,Mono-Dibasic 133 ML ENEMA PR ×2 (08:05→08:13)
--- NOTE | 2022-05-25 08:11 | P.CONAN_ITS ---
HPI - Anesthesia Eval Consult details Narrative: flex sigmoidoscopy PMFSH Active Problems Active Problems: All Active Problems (Updated 05/24/22 @ 12:01 by Rafael Inman MD) ESRD (end stage renal disease) (Acute) Acute proctitis (Acute) Hypertension (Acute) End stage renal disease on dialysis (Acute) Abdominal pain (Acute) Hypertensive emergency (Acute) Reactive airway disease (Acute) Anemia (Acute) Dialysis patient, noncompliant (Acute) Hyponatremia (Acute) Knee pain (Acute) Elevated serum immunoglobulin free light chains (Acute) Leukocytosis (Acute) Past Medical History Medical History Acute exacerbation of chronic obstructive pulmonary disease (COPD) Acute GI bleeding Anasarca Anemia in chronic kidney disease Ascites Asthma with COPD with exacerbation Constipation COVID COVID-19 virus infection Diabetes mellitus End stage renal disease on dialysis ESRD (end stage renal disease) Essential hypertension Heart failure with preserved ejection fraction Hypertrophic cardiomyopathy Ischemic colitis Opioid withdrawal Pulmonary congestion Family History Family History Other Hypertension Family history of problems with anesthesia: No Surgical History Surgical History No pertinent past surgical history History of Problems with Anesthesia: No Social History Social History Household Members: None Housing: Apartment Do you presently have visiting nurse or other home services: Yes Unable to assess alcohol history related to: Unknown Alcohol intake: never Patient Tobacco Use Status: Current everyday Tobacco user Tobacco use type: Cigarette Cigarette Packs Per Day: 1 Cigarettes Per Day: 3 Years Smoked: 18 e-Cigarette/Vaping Use: Never Used Second Hand Smoke Exposure: No Use of substances other than those prescribed or required for medical reasons: No Substance Use Type: Heroin Are you DNR?: No Advance Directives: Yes Advance Directives Information Provided: No Advance Directives on File: Yes Advance Directives Date on File: 04/20/21 service: No Current occupational status: unemployed and disabled Meds Allergies Allergy/AdvReac Type Severity Reaction Status Date / Time No Known Allergies Allergy Mild NOT Verified 04/14/22 01:40 APPLICABLE Active Medications: Current Medications Acetaminophen (Acetaminophen 325 Mg Tablet) 650 mg PO Q6H PRN PRN Reason: Pain, Mild (Pain Scale 1-3) Aspirin (Aspirin Enteric Coated 81 Mg Tablet.) 81 mg PO DAILY [facility] Last Admin: 05/24/22 10:18 Dose: 81 mg Bumetanide (Bumetanide 1 Mg Tablet) 2 mg PO DAILY [facility]; Protocol Last Admin: 05/24/22 10:17 Dose: 2 mg Buprenorphine/Naloxone (Buprenorphine/Naloxone 8/2 Mg Film) 2 film SUBLINGUAL DAILY [facility] Last Admin: 05/24/22 10:19 Dose: 2 film Carvedilol (Carvedilol 6.25 Mg Tablet) 6.25 mg PO BID [facility]; Protocol Last Admin: 05/24/22 22:52 Dose: 6.25 mg Clonidine HCl (Clonidine Hcl 0.2 Mg Tablet) 0.2 mg PO BID [facility]; Protocol Last Admin: 05/24/22 22:52 Dose: 0.2 mg Diphenhydramine HCl (Diphenhydramine Hcl 25 Mg Capsule) 25 mg PO DAILY PRN PRN Reason: allergy symptoms Docusate Sodium (Docusate Sodium 100 Mg Capsule) 100 mg PO BID PRN PRN Reason: Constipation Fluticasone Propionate (Fluticasone Propionate 100 Mcg Blst.W.Dev) 1 puff INHALE RBID [facility] Last Admin: 05/25/22 07:31 Dose: Not Given Gabapentin (Gabapentin 300 Mg Capsule) 300 mg PO DAILY [facility] Last Admin: 05/24/22 10:18 Dose: 300 mg Hydralazine HCl (Hydralazine Hcl 50 Mg Tablet) 100 mg PO TID [facility]; Protocol Last Admin: 05/24/22 22:52 Dose: 100 mg Insulin Glargine (Insulin Glargine,Hum.Rec.Anlog 100 Unit/Ml 10 Ml Vial) 7 unit SUBCUT DAILY [facility] Last Admin: 05/24/22 10:18 Dose: 7 unit Isosorbide Mononitrate (Isosorbide Mononitrate 30 Mg Tab.Er.24h) 30 mg PO DAILY [facility]; Protocol Last Admin: 05/24/22 10:18 Dose: 30 mg Melatonin (Melatonin 3 Mg Tablet) 6 mg PO BEDTIME PRN PRN Reason: Sleep Multivitamins/Vitamin C (Multivitamin Tablet) 1 tab PO DAILY [facility] Last Admin: 05/24/22 10:19 Dose: Not Given Omeprazole (Omeprazole 20 Mg Capsule.Dr) 20 mg PO DAILY@0630 [facility] Ondansetron HCl (Ondansetron Hcl 4 Mg/2 Ml Vial) 4 mg IVPUSH Q8H PRN PRN Reason: Nausea and Vomiting Last Admin: 05/25/22 07:41 Dose: 4 mg Pharmacy Consult (Consult Rx Perform Med Rec) 1 each MISCELLANE ONCE PRN PRN Reason: Consult order Polyethylene Glycol (Polyethylene Glycol 3350 17 Gm Powd.Pack) 17 gm PO DAILY [facility] Last Admin: 05/24/22 10:19 Dose: 17 gm Sodium Biphosphate/Sodium Phosphate (Sodium Phosphate,[place]-Dibasic 133 Ml Enema) 133 ml WA PRE PROCEDURE [facility] Sodium Chloride (0.9 % Sodium Chloride Flush 3 Ml Syringe) 3 ml IVFLUSH QSHIFT [facility] Last Admin: 05/25/22 02:11 Dose: 3 ml Tiotropium [place] (Tiotropium [place] 18 Mcg Cap.W.Dev) 1 puff INHALE RDAILY [facility] Last Admin: 05/25/22 07:31 Dose: Not Given Home Medications Medication Instructions Recorded Confirmed Last Taken Type buprenorphine 8 mg-naloxone 2 mg 2 strip sublingual DAILY 10/22/20 05/24/22 05/06/22 History sublingual film (Suboxone) diltiazem HCl 180 mg 360 mg PO DAILY 10/22/20 05/24/22 05/06/22 History capsule,extended release 24 hr bumetanide 2 mg tablet 2 mg PO DAILY 04/15/21 05/24/22 05/06/22 History fluticasone propionate 110 1 puff inhalation BID 04/15/21 05/24/22 Unknown History mcg/actuation HFA aerosol inhaler (Flovent HFA) melatonin 5 mg tablet 5 mg PO BEDTIME PRN Sleep 04/15/21 05/24/22 Unknown History pantoprazole 40 mg tablet,delayed 40 mg PO DAILY 04/15/21 05/24/22 05/06/22 History release vitamin B comp no.3-folic acid 1 1 tab PO DAILY 04/15/21 05/24/22 05/06/22 History mg-vit C 60 mg-biotin 300 mcg tablet ([employer]-[facility]) sennosides 8.6 mg tablet (senna) 1 - 2 tab PO BEDTIME PRN 05/11/21 05/24/22 Unknown History constipation acetaminophen 500 mg tablet 500 mg PO Q8H PRN Pain, Mild 06/10/21 05/24/22 Unknown History clonidine HCl 0.2 mg tablet 0.2 mg PO BID 07/27/21 05/24/22 05/06/22 History insulin aspart U-100 100 unit/mL 1 sliding scale dose subcut 07/27/21 05/24/22 05/06/22 History subcutaneous cartridge (Novolog USEASDIRECTD PenFill U-100 Insulin aspart) insulin glargine 100 unit/mL 7 unit subcut DAILY 09/18/21 05/24/22 05/06/22 History subcutaneous solution (Lantus U-100 Insulin) aspirin 81 mg tablet,delayed 1 tab PO DAILY 10/11/21 05/24/22 05/06/22 History release albuterol sulfate 90 mcg/actuation 2 puff inhalation Q4H PRN wheezing 01/31/22 05/24/22 Unknown History aerosol inhaler (Ventolin HFA) diclofenac sodium 1 % topical gel 2 g topical BID 03/09/22 05/24/22 05/06/22 History ondansetron 4 mg disintegrating 4 mg PO BID PRN nausea and vomiting 03/09/22 05/24/22 Unknown History tablet carvedilol 6.25 mg tablet 1 tab PO BID 04/24/22 05/24/22 05/06/22 History gabapentin 300 mg capsule 1 cap PO DAILY 04/24/22 05/24/22 05/06/22 History hydralazine 50 mg tablet 2 tab PO TID 04/24/22 05/24/22 05/06/22 History hydrocortisone 2.5 % topical cream 1 appl [place] BID 04/24/22 05/24/22 Unknown History with perineal applicator tiotropium bromide 18 mcg capsule 1 cap inhalation DAILY 04/24/22 05/24/22 Unknown History with inhalation device (Spiriva with HandiHaler) albuterol sulfate 2.5 mg/3 mL 1 amp inhalation TID PRN Shortness 05/08/22 05/24/22 Unknown History (0.083 %) solution for nebulization Of Breath Exam Exam Date and Time: May 25, 2022 0811 Height,Weight and Vital Signs: Height 5 ft 1 in Weight 68 kg Last Vital Signs Temp 97.4 F 05/25/22 07:55 Pulse 71 05/25/22 07:55 Resp 18 05/25/22 07:55 BP 192/75 H 05/25/22 07:55 Pulse Ox 94 05/25/22 07:55 O2 Del Method 05/25/22 07:55 Pertinent Lab Results Pertinent Lab Results: Laboratory Tests 05/24/22 05/24/22 05/24/22 03:29 03:29 05:22 WBC 8.4 RBC 3.51 L Hgb 10.6 L Hct 32.9 L MCV 93.7 MCH 30.2 MCHC 32.2 RDW 14.8 Plt Count 217 MPV 9.8 Immature Gran % (Auto) 0.4 Neut % (Auto) 74.9 H Lymph % (Auto) 10.1 L [place] % (Auto) 10.2 Eos % (Auto) 4.0 Baso % (Auto) 0.4 Lymph # (Auto) 0.9 L [place] # (Auto) 0.9 Eos # (Auto) 0.3 Baso # (Auto) 0.0 Abs Immat Gran (auto) 0.03 Absolute Neuts (auto) 6.3 Absolute Nucleated RBC 0.000 Nucleated RBC % (auto) 0.0 Sodium 132 L Potassium 4.8 Chloride 91 L Carbon Dioxide 27 Anion Gap 19 BUN 33 H Creatinine 4.87 H* Estim Creat Clear Calc 9.9 Estimated GFR 9 POC Glucose Random Glucose 136 H Calcium 9.0 Total Bilirubin 0.5 Direct Bilirubin < 0.2 AST 27 ALT 13 Alkaline Phosphatase 214 H Total Protein 7.4 Albumin 4.1 Lipase 11 Influenza Type A (PCR) NEGATIVE Influenza Type B (PCR) NEGATIVE RSV RNA Qual (PCR) NEGATIVE SARS-CoV-2 RNA (RT-PCR) NEGATIVE 05/24/22 05/24/22 05/24/22 12:17 17:51 22:15 WBC RBC Hgb Hct MCV MCH MCHC RDW Plt Count MPV Immature Gran % (Auto) Neut % (Auto) Lymph % (Auto) [place] % (Auto) Eos % (Auto) Baso % (Auto) Lymph # (Auto) [place] # (Auto) Eos # (Auto) Baso # (Auto) Abs Immat Gran (auto) Absolute Neuts (auto) Absolute Nucleated RBC Nucleated RBC % (auto) Sodium Potassium Chloride Carbon Dioxide Anion Gap BUN Creatinine Estim Creat Clear Calc Estimated GFR POC Glucose 139 H 155 H 129 H Random Glucose Calcium Total Bilirubin Direct Bilirubin AST ALT Alkaline Phosphatase Total Protein Albumin Lipase Influenza Type A (PCR) Influenza Type B (PCR) RSV RNA Qual (PCR) SARS-CoV-2 RNA (RT-PCR) 05/25/22 07:30 WBC RBC Hgb Hct MCV MCH MCHC RDW Plt Count MPV Immature Gran % (Auto) Neut % (Auto) Lymph % (Auto) [place] % (Auto) Eos % (Auto) Baso % (Auto) Lymph # (Auto) [place] # (Auto) Eos # (Auto) Baso # (Auto) Abs Immat Gran (auto) Absolute Neuts (auto) Absolute Nucleated RBC Nucleated RBC % (auto) Sodium Potassium Chloride Carbon Dioxide Anion Gap BUN Creatinine Estim Creat Clear Calc Estimated GFR POC Glucose 70 Random Glucose Calcium Total Bilirubin Direct Bilirubin AST ALT Alkaline Phosphatase Total Protein Albumin Lipase Influenza Type A (PCR) Influenza Type B (PCR) RSV RNA Qual (PCR) SARS-CoV-2 RNA (RT-PCR) Airway Mallampati Class: II TM Dist: <=3cm Neck ROM: Full Denture: Upper and Lower Loose/Missing/Broken Teeth: Yes (No teeth) Heart: ok Lungs: ok Assessment and Plan Assessment Anesthesia Assessment: Anesthesia Plan Discussed and Chart Reviewed Final Anesthetic Review Family History of Problems with Anesthesia: No History of Problems with Anesthesia: No NPO: Yes ASA Class: IV Final Preanesthetic Review: No Changes in Pt Med Stat, Meds/Allgs Chart Reviewed, Consent Obtained/Reviewed and Anes Risks/Benef Reviewed Patient Risk: High Procedure Risk: Low Anesthetic Plan Anesthetic Plan: MAC: and Agree w/ Assess. and Plan Disposition: Standard PACU
--- NOTE | 2022-05-25 09:21 | P.BOP_ITS ---
Brief Operative Note Date of Service: 05/25/22 Pre-op diagnosis: recta pain, abnormal ct scan of colon Post-op diagnosis: same Procedure: colonoscopy Surgeon: Joao Schroeder Anesthesia: MAC Was an Grain Wafer Machine Operator used for this Procedure?: No Estimated blood loss (mL): 0 Pathology: none sent Condition: stable Disposition: PACU
--- NOTE | 2022-05-25 09:23 | MHC.CM.PN ---
Patient lives alone in an apartment and is active with [facility], [facility] (9HOURS/WEEK), and HD @ [facility]SUN. Home/resume said services is the goal and CM has initiated and will follow for dc planning. Patient has received Covid vax x4 and her PCP is Dr. Sammy Vicente.
--- NOTE | 2022-05-25 09:23 | PM.EVENT ---
Event Note Date of Service: 05/25/22 Event Note: Colonoscopy note dictated Examination to mid transverse colon limited as pt refused prep. No colitis or proctitis. Normal mucosa. Rec: advance diet f/u prn. Time Spent With Patient Time: Total time managing care of this patient today ____ minutes.
[2022-05-25 09:30] LABS: Glucose, Whole Blood 72 mg/dL (60-115)
--- NOTE | 2022-05-25 09:39 | OP_ITS ---
SURGEON: Joao Schroeder MD INDICATIONS: Abnormal CT scan of the colon showing perirectal fat stranding and possible proctitis. PREOPERATIVE DIAGNOSIS: POSTOPERATIVE DIAGNOSIS: PROCEDURE PERFORMED: ESTIMATED BLOOD LOSS: COMPLICATIONS: ANESTHESIA: Monitored anesthesia care. ASSISTANTS: SPECIMENS: PROCEDURE: Colonoscopy to the mid transverse colon. DESCRIPTION OF PROCEDURE: The procedure was performed on 05/25/2022. A history and physical was performed. The risks and benefits of the procedure were explained to the patient, and informed consent was obtained. The patient was placed in the left lateral decubitus position. A digital rectal examination showed a decrease in sphincter tone. The Olympus pediatric video colonoscope was introduced into the rectum and advanced to the mid transverse colon, at which point further advancement was not possible due to no prep and looping in the sigmoid. Examination was performed. The scope was removed. She tolerated the procedure well and was returned to recovery area in stable condition. FINDINGS: There was a large amount of liquid and formed stool present as the patient refused to take her bowel prep and was given an enema x2 the morning of the procedure. The visualized colonic mucosa was within normal limits without evidence of masses or ulcers. There was no evidence of colitis or proctitis. Retroflexed examination was limited due to the patient's inability to retain air insufflation, but no pathology was identified. There was a slight rectal prolapse seen on withdrawal of the colonoscope. 70 % of the colon was examined. IMPRESSION: Normal colonoscopy, limited as above. RECOMMENDATION: Follow up as needed. This exam was not a screening exam, but was directed at evaluating the CT abnormality as above, which is also outlined in the GI consult. A complete screening exam should be done as soon as she agrees to take a bowel prep, as she is overdue for colon cancer screening. MD LETY Doshi/GRACIE / [id number] DAINA
--- NOTE | 2022-05-25 11:54 | PM.PNNEP ---
Subjective Subjective Date of Service: 05/25/22 Interval history: seen and examined events reviewed no complaints Physical Exam Vital Signs: Vital Signs: Last Vital Signs Temp 97.3 F 05/25/22 09:43 Pulse 64 05/25/22 09:37 Resp 14 05/25/22 09:37 BP 164/72 H 05/25/22 09:37 Pulse Ox 95 05/25/22 09:37 O2 Del Method 05/25/22 09:37 O2 Flow Rate 2 05/25/22 09:37 BMI result Body Mass Index 28.3 Const: General: no acute distress HEENT: Head: Yes normocephalic and Yes atraumatic Neck: Neck: Yes supple Resp: Auscultation: clear to auscultation bilaterally Cardio: Heart sounds: S1 normal heart sound present and S2 normal heart sound present GI: Palpation (GI): Soft to palpation and nontender Extrem: General: No edema Objective Data Labs CBC & Chem 7: 05/24/22 03:29 05/24/22 03:29 Labs: Laboratory Results - last 24 hr 05/24/22 05/24/22 05/24/22 12:17 17:51 22:15 POC Glucose 139 H 155 H 129 H 05/25/22 05/25/22 07:30 09:24 POC Glucose 70 72 Procedures Date of Service Date of Service: 05/25/22 Assessment & Plan Assessment and plan (1) ESRD (end stage renal disease): Status: Acute (2) Acute proctitis: Status: Acute (3) Anemia: Status: Acute Plan usually had HD t-t-s HD held today as patient in surgery presented with acute proctitis REC HD in am renal diet phosphate binders [id number] per protocol Time Spent With Patient Time: Total time managing care of this patient today ____ minutes. Progress Note: Quality Stroke Does the patient have a stroke diagnosis?: No
--- NOTE | 2022-05-25 12:15 | P.PNIM_ITS ---
Subjective Subjective Date of Service: 05/25/22 Interval History: Patient seen examined for rectal pain patient returned from colonoscopy, offers no complaint of rectal pain, no nausea no vomiting, no abdominal pain feeling hungry no acute overnight events, denies fever chills, no headache, no dizziness. Review of Systems Review of Systems: Yes all other systems are reviewed and are negative Physical Exam Vital Signs: Vital Signs: Last Vital Signs Temp 97.3 F 05/25/22 09:43 Pulse 64 05/25/22 09:37 Resp 14 05/25/22 09:37 BP 164/72 H 05/25/22 09:37 Pulse Ox 95 05/25/22 09:37 O2 Del Method 05/25/22 09:37 O2 Flow Rate 2 05/25/22 09:37 BMI result Body Mass Index 28.3 Const: Other: Gen:awake alert, i n no acute distres s HEENT: sclera an icteric, moist muc us membranes Neck: supple Lungs:? Cl ear to auscultatio n, no wheeze, no c rackles, diminishe d bilaterally Hear t: regular rate an d rhythm, no murmu rs Abd: soft, tend er bilateral lower quadrants Ext: no edema Skin: warm/ well-perfused Neur o: alert and orien kalen x3, no focal f indings Psych: ange ropriate affect Objective Data Active Medications Acetaminophen (Acetaminophen 325 Mg Tablet) 650 mg PO Q6H PRN PRN Reason: Pain, Mild (Pain Scale 1-3) Acetaminophen (Acetaminophen 325 Mg Tablet) 650 mg PO ONCE PRN PRN Reason: Pain, Mild (Pain Scale 1-3) Amlodipine Besylate (Amlodipine Besylate 10 Mg Tablet) 10 mg PO DAILY [facility]; Protocol Last Admin: 05/25/22 11:33 Dose: Not Given Documented By: PEREZ Non-Admin Reason: Off Unit: Surgery Aspirin (Aspirin Enteric Coated 81 Mg Tablet.) 81 mg PO DAILY [facility] Last Admin: 05/25/22 08:55 Dose: Not Given Documented By: PEREZ Non-Admin Reason: Off Unit: Surgery Bumetanide (Bumetanide 1 Mg Tablet) 2 mg PO DAILY [facility]; Protocol Last Admin: 05/25/22 08:55 Dose: Not Given Documented By: PEREZ Non-Admin Reason: Off Unit: Surgery Buprenorphine/Naloxone (Buprenorphine/Naloxone 8/2 Mg Film) 2 film SUBLINGUAL DAILY [facility] Last Admin: 05/25/22 08:55 Dose: Not Given Documented By: PEREZ Non-Admin Reason: Off Unit: Surgery Carvedilol (Carvedilol 6.25 Mg Tablet) 6.25 mg PO BID [facility]; Protocol Last Admin: 05/25/22 08:56 Dose: Not Given Documented By: PEREZ Non-Admin Reason: Off Unit: Surgery Clonidine HCl (Clonidine Hcl 0.2 Mg Tablet) 0.2 mg PO BID [facility]; Protocol Last Admin: 05/25/22 08:58 Dose: Not Given Documented By: PEREZ Non-Admin Reason: Off Unit: Surgery Diphenhydramine HCl (Diphenhydramine Hcl 25 Mg Capsule) 25 mg PO DAILY PRN PRN Reason: allergy symptoms Docusate Sodium (Docusate Sodium 100 Mg Capsule) 100 mg PO BID PRN PRN Reason: Constipation Fluticasone Propionate (Fluticasone Propionate 100 Mcg Blst.W.Dev) 1 puff INHALE RBID [facility] Last Admin: 05/25/22 07:31 Dose: Not Given Documented By: DRAKE Non-Admin Reason: Med Not Available Gabapentin (Gabapentin 300 Mg Capsule) 300 mg PO DAILY [facility] Last Admin: 05/25/22 08:56 Dose: Not Given Documented By: PEREZ Non-Admin Reason: Off Unit: Surgery Hydralazine HCl (Hydralazine Hcl 50 Mg Tablet) 100 mg PO TID [facility]; Protocol Last Admin: 05/25/22 08:56 Dose: Not Given Documented By: PEREZ Non-Admin Reason: Off Unit: Surgery Insulin Glargine (Insulin Glargine,Hum.Rec.Anlog 100 Unit/Ml 10 Ml Vial) 7 unit SUBCUT DAILY [facility] Last Admin: 05/25/22 08:56 Dose: Not Given Documented By: PEREZ Non-Admin Reason: Off Unit: Surgery Isosorbide Mononitrate (Isosorbide Mononitrate 30 Mg Tab.Er.24h) 30 mg PO DAILY [facility]; Protocol Last Admin: 05/25/22 08:57 Dose: Not Given Documented By: PEREZ Non-Admin Reason: Off Unit: Surgery Melatonin (Melatonin 3 Mg Tablet) 6 mg PO BEDTIME PRN PRN Reason: Sleep Multivitamins/Vitamin C (Multivitamin Tablet) 1 tab PO DAILY [facility] Last Admin: 05/25/22 08:55 Dose: Not Given Documented By: PEREZ Non-Admin Reason: Off Unit: Surgery Omeprazole (Omeprazole 20 Mg Capsule.Dr) 20 mg PO DAILY@0630 [facility] Last Admin: 05/25/22 08:57 Dose: Not Given Documented By: PEREZ Non-Admin Reason: NOT GIVEN BY PREVIOUS RN Ondansetron HCl (Ondansetron Hcl 4 Mg/2 Ml Vial) 4 mg IVPUSH Q8H PRN PRN Reason: Nausea and Vomiting Last Admin: 05/25/22 07:41 Dose: 4 mg Documented By: PEREZ Ondansetron HCl (Ondansetron Hcl 4 Mg/2 Ml Vial) 4 mg IVPUSH ONCE PRN PRN Reason: Nausea and Vomiting Pharmacy Consult (Consult Rx Perform Med Rec) 1 each MISCELLANE ONCE PRN PRN Reason: Consult order Polyethylene Glycol (Polyethylene Glycol 3350 17 Gm Powd.Pack) 17 gm PO DAILY [facility] Last Admin: 05/25/22 08:57 Dose: Not Given Documented By: PEREZ Non-Admin Reason: Off Unit: Surgery Sodium Biphosphate/Sodium Phosphate (Sodium Phosphate,[place]-Dibasic 133 Ml Enema) 133 ml GA PRE PROCEDURE [facility] Last Admin: 05/25/22 08:13 Dose: 133 ml Documented By: TRAV Sodium Chloride (0.9 % Sodium Chloride Flush 3 Ml Syringe) 3 ml IVFLUSH QSHIFT [facility] Last Admin: 05/25/22 08:57 Dose: Not Given Documented By: PEREZ Non-Admin Reason: Off Unit: Surgery Tiotropium [place] (Tiotropium [place] 18 Mcg Cap.W.Dev) 1 puff INHALE RDAILY [facility] Last Admin: 05/25/22 07:31 Dose: Not Given Documented By: DRAKE Non-Admin Reason: Med Not Available Labs CBC & Chem 7: 05/24/22 03:29 05/24/22 03:29 Labs: Laboratory Results - last 24 hr 05/24/22 05/24/22 05/24/22 12:17 17:51 22:15 POC Glucose 139 H 155 H 129 H 05/25/22 05/25/22 07:30 09:24 POC Glucose 70 72 Assessment and Plan (1) ESRD (end stage renal disease): Status: Acute (2) Hypertension: Status: Acute (3) Rectal pain: Status: Acute Plan 67 yo F presenting with rectal pain. CT scan shows proctitis and moderate constipation. She will be admitted under obs and will have GI consult. 1. Rectal pain Resolved, CT abdomen showed Moderate stool burden in the colon, but the rectum without stool and persistent fat stranding. Given IV antibiotics for possible proctitis in the ED, patient seen by Dr. Schroeder and underwent colonoscopy to mid transverse colon limited as patient refused prepped no colitis or proctitis seen noted to have normal mucosa GI recommend to advance diet Patient placed on diabetic diet, recommend bowel regimen for chronic constipati on. 2. ESRD on HD , , -- patient was scheduled to have hemodialysis today but procedure not done since patient was getting colonoscopy therefore will have hemodialysis tomorrow Being followed by Nephrology 3. Uncontrolled blood pressure Elevated blood pressure will resume all home medications including Norvasc, Cardizem hydralazine and core follow BP closely 4. DM Resume diabetic diet, continue basal+bolus insulin 5. Chronic copd No acute exacerbation continue baseline meds 6. Chronic constipation bowel regime 7. LLE swelling on exam appears slightly more edematous compared to right Doppler lower extremity showed no DVT Full Code DVT pptx, heparin Disposition home after hemodialysis tomorrow, patient need continued hospitalization for hemodialysis at a.m. Time Spent With Patient Time: Total time managing care of this patient today ____ minutes. Quality Stroke Does the patient have a stroke diagnosis?: No VTE Prior VTE?: No VTE Risk Level:: Medical - moderate - high VTE Device Contraindication: Treatment Not Indicated VTE Drug Contraindication: N/A - Med Ordered
[2022-05-25] MEDS: Aspirin Enteric Coated 81 MG TABLET.DR PO ×2 (12:32→13:05)
[2022-05-25] MEDS: Buprenorphine/Naloxone 8/2 mg FILM 2 FILM SUBLINGUAL (12:46)
[2022-05-25] MEDS: Insulin Glargine,Hum.rec.anlog 100 UNIT/ML 10 ML VIAL 7 UNIT SUBCUT (12:49)
[2022-05-25] MEDS: Isosorbide Mononitrate 30 MG TAB.ER.24H PO (13:02)
[2022-05-25] MEDS: Bumetanide 1 MG TABLET 2 MG PO (13:02)
[2022-05-25] MEDS: carvediloL 6.25 MG TABLET PO ×2 (13:03→20:03)
[2022-05-25] MEDS: hydrALAZINE HCl 50 MG TABLET 100 MG PO ×3 (13:03→20:03)
[2022-05-25] MEDS: amLODIPine Besylate 10 MG TABLET PO (13:03)
[2022-05-25] MEDS: Multivitamin TABLET 1 TAB PO (13:03)
[2022-05-25] MEDS: Gabapentin 300 MG CAPSULE PO (13:04)
[2022-05-25] MEDS: cloNIDine HCL 0.2 MG TABLET PO ×2 (13:04→20:03)
[2022-05-25 13:25] LABS: Glucose, Whole Blood 143 mg/dL (60-115)
--- NOTE | 2022-05-25 14:58 | PC.NURSE ---
RN to RN report given to Pamela. pt will be transferred to room 387 by transported. pt aware of plan.
[2022-05-25 16:34] LABS: Glucose, Whole Blood 151 mg/dL (60-115)
--- NOTE | 2022-05-25 19:54 | PC.NURSE ---
Patient c/o dizziness,denies SOB or chest pain.BP 168/72 pulse 66,sat 96 % on 1 liter,will administer scheduled hydralazine,Clonidine and Coreg,Dr. Daniel notified.
[2022-05-25 20:20] LABS: Glucose, Whole Blood 122 mg/dL (60-115)
[2022-05-25] MEDS: Melatonin 3 MG TABLET 6 MG PO (20:33)
[2022-05-26] MEDS: 0.9 % Sodium Chloride Flush 3 ML SYRINGE IVFLUSH ×2 (00:27→07:15)
[2022-05-26 02:41] VITALS: BP 155/72; PULSE 62; RESP 16; TEMP 36.7; O2SAT 94
[2022-05-26] MEDS: Omeprazole 20 MG CAPSULE.DR PO (05:41)
[2022-05-26 07:35] LABS: Glucose, Whole Blood 105 mg/dL (60-115)
[2022-05-26 08:00] VITALS: BP 188/83; PULSE 72; RESP 15; TEMP 37.2; O2SAT 92
[2022-05-26] MEDS: Buprenorphine/Naloxone 8/2 mg FILM 2 FILM SUBLINGUAL (08:44)
[2022-05-26 10:43] LABS: Glucose, Whole Blood 141 mg/dL (60-115)
--- NOTE | 2022-05-26 11:36 | PM.DS ---
DS: Providers Provider Date of Service: 05/26/22 Date of admission: 05/24/22 08:57 Primary care physician: Sammy Vicente MD Consults: 05/24/22 08:57 Consult to Gastroenterology Routine Consulting Provider: Joao Schroeder Reason for consultation: rectal pain 05/24/22 09:00 Consult to Nephrology Routine Consulting Provider: Clive Lange Reason for consultation: ESRD on HD TTHS 05/25/22 12:47 Consult to Psychiatry Routine Consulting Provider: Psych Covering Reason for consultation: for competency Has provider been notified: No DS: Diagnosis Discharge Diagnosis (1) ESRD (end stage renal disease): Status: Acute (2) Hypertension: Status: Acute (3) Rectal pain: Status: Acute DS: Summary Hospital Course Hospital Course: Date of Service: 05/24/22 Chief Complaint: rectal pain The patient is a 67 y/o F with a PMH of COPD, ESRD on HD TTHS, DM, chronic constpiation, HFpEF, Ishcemic colitis, HTN who presents to the ED with complaints of rectal pain. The patient is primarily Maltese speaking and hence, history is obtained with the help of a Maltese intreter. However, despite this, the patient remains a vague historian. She reprots that she has chronic constipation and moves her bowels about twice a week. Recently, this has worsened and her last BM, it appears has been longer than a few days. She states that she has the urge to go, but upon defication the day prior to admission, she felt pain and since then it has not subsided. She denies any abdominal pain. She denies any nausea or vomiting. She denies any bleeding, rectal or otherwise. No reports of fevers. In the Ed, the patient's CT abd/pelvis showed proctitis. She was given IV antibiotics, anti-emetics and tylenol. She will be admitted for further management. Hospital course 67 yo F presenting with rectal pain. CT scan of abd. showed proctitis and moderate constipation patient admitted to medical floor, and was seen by Dr. Schroeder underwent colonoscopy to mid transverse colon limited as patient refused prepped no colitis or proctitis, noted to have normal mucosa GI recommend to advance diet, at present patient is tolerating diet with no nausea, no vomiting, had a regular bowel movement she has been recommended to continue bowel regimen to avoid constipation. 2. ESRD since patient missed hemodialysis on she is undergoing dialysis hemodialysis today and will be subsequently discharged home she is recommended to continue all home medications and follow low-potassium diet 3. Uncontrolled blood pressure patient is on multiple antihypertensive noted to have elevated blood pressure recommend close outpatient follow-up with Nephrology and compliance with medication 4. DM blood sugars stable continue diabetic diet and insulin 5. Chronic copd No acute exacerbation continue baseline meds 6. Chronic constipation follow bowel regime add more fiber to diet 7. LLE swelling Doppler study showed no DVT Time Spent with Patient Time attestation: Total time managing care of this patient today ____ minutes. Discharge coordination time: Greater than 30 minutes Quality: Safe Use of Opioids Does Pt have an Active Cancer Diagnosis on the Problem List?: No Quality: Stroke Does the patient have a stroke diagnosis?: No Physical Exam Vital Signs: Vital Signs: Last Vital Signs Temp 99.0 F 05/26/22 08:00 Pulse 72 05/26/22 08:00 Resp 15 05/26/22 08:00 BP 188/83 H 05/26/22 08:00 Pulse Ox 92 05/26/22 08:00 O2 Del Method 05/26/22 08:00 O2 Flow Rate 1 05/26/22 02:41 BMI result Body Mass Index 28.3 Const: Other: General awake alert x3, comfortably in no acute distress. Neck supple no JVD. CVS regular rate rhythm, Respiratory lungs clear to auscultation, no respiratory distress, no wheeze, no rhonchi. Gastrointestinal abdomen soft, nontender, bowel sounds audible, no guarding , no rigidity. Extremities mild LLE edema. Neuro nonfocal Skin no rash DS: Data Data Completed and Pending Completed studies during hospitalization [Text1]: Procedures Assistance with Respiratory Ventilation, Less than 24 Consecutive Hours, Continuous Positive Airway Pressure (04/14/22) Excision of Left Kidney, Percutaneous Approach, Diagnostic (02/25/21) Excision of Right Kidney, Percutaneous Approach, Diagnostic (10/22/20) Insertion of Endotracheal Airway into Trachea, Via Natural or Artificial Opening (10/12/21) Insertion of Infusion Device into Right Atrium, Percutaneous Approach (01/30/22) Insertion of Infusion Device into Superior Vena Cava, Percutaneous Approach (02/25/21) Insertion of Tunneled Vascular Access Device into Chest Subcutaneous Tissue and Fascia, Percutaneous Approach (10/12/21) Performance of Urinary Filtration, Intermittent, Less than 6 Hours Per Day (05/07/22) Respiratory Ventilation, 24-96 Consecutive Hours (10/12/21) Transfusion of Nonautologous Red Blood Cells into Peripheral Vein, Percutaneous Approach (02/25/21) Ultrasonography of Superior Vena Cava, Guidance (01/30/22) Labs on day of discharge: Laboratory Results - last 24 hr 05/25/22 05/25/22 05/25/22 13:18 16:31 20:02 POC Glucose 143 H 151 H 122 H 05/26/22 05/26/22 07:31 10:38 POC Glucose 105 141 H Discharge Plan Discharge Patient Disposition: Home Health Service Discharge Diagnosis: Rectal pain Referrals: [facility] [Outside] - 1 Week Sammy Vicente MD [Primary Care Provider] - 1 Week Discharge Medications: Continued buprenorphine-naloxone [Suboxone] 8-2 mg film 2 strip sublingual DAILY diltiazem HCl 180 mg capsule,extended release 24hr 360 mg PO DAILY acetaminophen 500 mg Tablet 500 mg PO Q8H PRN (Reason: Pain, Mild) clonidine HCl 0.2 mg tablet 0.2 mg PO BID insulin aspart U-100 [Novolog PenFill U-100 Insulin] 100 unit/mL Cartridge 1 sliding scale dose SUBCUT USEASDIRECTD Protocol: Insulin Correction Scale Less than or equal to 110 ---- Give (units): 0 111 to 150 Give (units): 0 151 to 200 Give (units): 4 201 to 250 Give (units): 6 251 to 300 Give (units): 8 301 to 350 Give (units): 10 Greater than 350 Give (units): 12 Call if Blood Glucose > : 350 docusate sodium [Colace] 100 mg capsule 100 mg PO BID PRN (Reason: Constipation) Qty: 30 0RF amlodipine 10 mg Tablet 10 mg PO BEDTIME Qty: 30 0RF Protocol: Hold for SBP< HOLD for SBP < : 90 Rx Instructions: replaces prior dose of 5 mg daily bumetanide 2 mg Tablet 2 mg PO DAILY pantoprazole 40 mg Tablet,Delayed Release (Dr/Ec) 40 mg PO DAILY melatonin 5 mg Tablet 5 mg PO BEDTIME PRN (Reason: Sleep) [employer]ID[employer] COUNSEL[employer]-[facility]arifa Rx 1-60-300 mg-mg-mcg Tablet 1 tab PO DAILY fluticasone propionate [Flovent HFA] 110 mcg/actuation Hfa Aerosol Inhaler 1 puff INHALATION BID sennosides [senna] 8.6 mg tablet 1 - 2 tab PO BEDTIME PRN (Reason: constipation) insulin glargine [Lantus U-100 Insulin] 100 unit/mL solution 7 unit subcut DAILY isosorbide mononitrate 30 mg Tablet Extended Release 24 Hr 30 mg PO DAILY Qty: 30 0RF Protocol: Hold for SBP< HOLD for SBP < : 90 aspirin 81 mg tablet,delayed release (DR/EC) 1 tab PO DAILY albuterol sulfate [Ventolin HFA] 90 mcg/actuation HFA aerosol inhaler 2 puff INHALATION Q4H PRN (Reason: wheezing) diclofenac sodium 1 % gel 2 g topical BID ondansetron 4 mg tablet,disintegrating 4 mg PO BID PRN (Reason: nausea and vomiting) carvedilol 6.25 mg tablet 1 tab PO BID Spiriva with HandiHaler 18 mcg capsule, w/inhalation device 1 cap inhalation DAILY hydralazine 50 mg tablet 2 tab PO TID hydrocortisone 2.5 % cream with perineal applicator 1 appl OK BID gabapentin 300 mg capsule 1 cap PO DAILY diphenhydramine HCl [Benadryl] 25 mg capsule 25 mg PO DAILY PRN (Reason: allergy symptoms) Qty: 30 0RF polyethylene glycol 3350 [Miralax] 17 gram/dose powder 17 g PO DAILY Qty: 238 0RF albuterol sulfate 2.5 mg /3 mL (0.083 %) solution for nebulization 1 amp inhalation TID PRN (Reason: Shortness Of Breath) Discharge Orders: Discharge Order (Routine); Ordered 05/26/22 Ordered By: Aracelis Zuleta Diet: Diabetic diet Activity on Discharge: As tolerated Stand Alone Forms: Patient Portal Discharge page Care Plan Goals: Rectal pain resolved colonoscopy showed no acute abnormality recommend to continue bowel regimen and avoid constipation Health Concerns: Continue all home medications as before continue hemodialysis Sunday and Saturdays Plan of Treatment: Outpatient follow-up with primary care and Nephrology Assessment: As above
--- NOTE | 2022-05-26 11:39 | MHC.CM.PN ---
Addendum entered by Aislinn Zaldivar 05/26/22 14:26: [facility] HAS NOT RESPONDED IN [employer] CM LEFT A VM FOR THEM AT [phone] DC SUMMARY SENT TO THEM VIA [employer] Original Note: PT WILL DC HOME TODAY WITH [facility]ION [facility] [employer] DC NOTICE SENT TO [facility]IA [employer] PT TO ARRANGE TRANSPORT
[2022-05-26] MEDS: Acetaminophen 325 MG TABLET 650 MG PO (12:13)
[2022-05-26] MEDS: ondansetron HCL 4 MG/2 ML VIAL IVPUSH (12:17)
[2022-05-26 13:46] VITALS: BP 168/70; PULSE 72; RESP 18; TEMP 36.2; O2SAT 97
[2022-05-26] MEDS: carvediloL 6.25 MG TABLET PO (13:58)
[2022-05-26] MEDS: Gabapentin 300 MG CAPSULE PO (13:58)
[2022-05-26] MEDS: cloNIDine HCL 0.2 MG TABLET PO (13:58)
[2022-05-26] MEDS: Isosorbide Mononitrate 30 MG TAB.ER.24H PO (13:58)
[2022-05-26] MEDS: Aspirin Enteric Coated 81 MG TABLET.DR PO (13:59)
[2022-05-26] MEDS: hydrALAZINE HCl 50 MG TABLET 100 MG PO (13:59)
[2022-05-26] MEDS: amLODIPine Besylate 10 MG TABLET PO (13:59)
[2022-05-26] MEDS: dilTIAZem HCL CD 180 MG CAP.ER.24H 360 MG PO (13:59)
[2022-05-26] MEDS: diphenhydrAMINE HCL 25 MG CAPSULE PO (14:21)
[2022-05-26 14:43] VITALS: BP 160/78; PULSE 70; RESP 18
--- NOTE | 2022-05-26 15:30 | HO.POSTANES ---
Post Anesthesia Evaluation Post Anesthesia Evaluation Vital Signs: Vital Signs Temp Pulse Resp BP Pulse Ox O2 Del Method 05/26/22 14:43 70 18 160/78 H 05/26/22 13:46 97.2 F 72 18 168/70 H 97 Room Air 05/26/22 08:00 99.0 F 72 15 188/83 H 92 Room Air Anesthesia: Monitored Mental Status: Awake Pain Control: Satisfactory Nausea/Vomiting: None Hydration: Adequate Anesthesia-Related Issues: No Anes. Related Issues
--- NOTE | 2022-05-26 15:45 | PC.NURSE ---
Spoke with patient CAROLINA regarding her medications for tonight,
== END 2022-05-26 15:34 | disposition home health service (06) ==
LOC: HO.ED 05:05 → HO.EDOVER 09:03 → HO.S3 05-25 13:38
PROVIDERS: Family Medicine; Internal Medicine Gastroenterology; Admitting Provider Family Medicine; Emergency Provider Emergency Medicine; PCP Internal Medicine; Visit Provider Hospitalist
PROC: 0DJD8ZZ Inspection of Lower Intestinal Tract, Via Natural or Artificial Opening Endoscopic (ICD-10-PCS; CPT 45378; principal; 2022-05-25 08:30)
DX: K62.89 Other specified diseases of anus and rectum (principal); K56.2 Volvulus; D64.9 Anemia, unspecified; E11.22 Type 2 diabetes mellitus with diabetic chronic kidney disease; I13.2 Hypertensive heart and chronic kidney disease with heart failure and with stage 5 chronic kidney disease, or end stage renal disease; I50.9 Heart failure, unspecified; N18.6 End stage renal disease; Z99.2 Dependence on renal dialysis; K59.09 Other constipation; R60.0 Localized edema; F20.9 Schizophrenia, unspecified; F17.210 Nicotine dependence, cigarettes, uncomplicated; F11.20 Opioid dependence, uncomplicated; Z79.4 Long term (current) use of insulin; Z79.82 Long term (current) use of aspirin; Z20.828 Contact with and (suspected) exposure to other viral communicable diseases
CPT/HCPCS: 45378; 0241U; 36415; 74176; 80048; 80076; 82947; 83690; 85025; 90935; 93971; 96365; 96366; 96367; 96372; 96375; 99221; 99285; J1956; J2405

== ENCOUNTER 2022-05-29 13:37 | Emergency (ER) | payer OTHER, SELFPAY ==
--- NOTE | ~2022-05-29 | XR_ITS ---
EXAMINATION: XR RIBS, LEFT CLINICAL INFORMATION: History of fall with left-sided rib pain. COMPARISON: 05/07/2022 TECHNIQUE: AP view of the chest Left ribs, 3 views FINDINGS: Lungs are well-inflated and without evidence of acute disease. No pulmonary consolidation, pleural effusion or pneumothorax. Cardiac silhouette exhibits stable enlargement compared to 05/07/2022. Pulmonary vascular pattern is normal. The tip of the dialysis catheter is at the level of the proximal right atrium. No acute skeletal findings. No evidence of an acute, displaced rib fracture. XR/XR ribs LT min 3V w CXR1V IMPRESSION: * Cardiomegaly. No acute cardiopulmonary abnormality. * No radiographic evidence of rib injury.
[2022-05-29 13:51] VITALS: BP 153/60; BP 161/72; PULSE 52; PULSE 54; RESP 18; TEMP 36.6; O2SAT 95; O2SAT 96; BMI 26.0
--- NOTE | 2022-05-29 13:54 | ED_ITS ---
HPI - General Adult General Chief complaint: Fall Stated complaint: FALL RIB/ CHIN PAIN Time Seen by Provider: 05/29/22 13:51 Source: patient Mode of arrival: EMS Limitations: no limitations History of Present Illness HPI narrative: Patient comes to the emergency room complaining of left-sided rib pain. Patient states that approximately 12 hours ago, patient accidentally rolled out of bed and landed on the left side of her body. Patient states that she has left-sided rib pain and when she takes big breaths it hurts more. Patient denies hitting her head, no loss of consciousness, no neck pain. Related Data Home Medications Medication Instructions Recorded Confirmed buprenorphine 8 mg-naloxone 2 mg 2 strip sublingual DAILY 10/22/20 05/24/22 sublingual film (Suboxone) diltiazem HCl 180 mg 360 mg PO DAILY 10/22/20 05/24/22 capsule,extended release 24 hr bumetanide 2 mg tablet 2 mg PO DAILY 04/15/21 05/24/22 fluticasone propionate 110 1 puff inhalation BID 04/15/21 05/24/22 mcg/actuation HFA aerosol inhaler (Flovent HFA) melatonin 5 mg tablet 5 mg PO BEDTIME PRN Sleep 04/15/21 05/24/22 pantoprazole 40 mg tablet,delayed 40 mg PO DAILY 04/15/21 05/24/22 release vitamin B comp no.3-folic acid 1 1 tab PO DAILY 04/15/21 05/24/22 mg-vit C 60 mg-biotin 300 mcg tablet (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) sennosides 8.6 mg tablet (senna) 1 - 2 tab PO BEDTIME PRN 05/11/21 05/24/22 constipation acetaminophen 500 mg tablet 500 mg PO Q8H PRN Pain, Mild 06/10/21 05/24/22 clonidine HCl 0.2 mg tablet 0.2 mg PO BID 07/27/21 05/24/22 insulin aspart U-100 100 unit/mL 1 sliding scale dose subcut 07/27/21 05/24/22 subcutaneous cartridge (Novolog USEASDIRECTD PenFill U-100 Insulin aspart) insulin glargine 100 unit/mL 7 unit subcut DAILY 09/18/21 05/24/22 subcutaneous solution (Lantus U-100 Insulin) aspirin 81 mg tablet,delayed 1 tab PO DAILY 10/11/21 05/24/22 release albuterol sulfate 90 mcg/actuation 2 puff inhalation Q4H PRN wheezing 01/31/22 05/24/22 aerosol inhaler (Ventolin HFA) diclofenac sodium 1 % topical gel 2 g topical BID 03/09/22 05/24/22 ondansetron 4 mg disintegrating 4 mg PO BID PRN nausea and vomiting 03/09/22 05/24/22 tablet carvedilol 6.25 mg tablet 1 tab PO BID 04/24/22 05/24/22 gabapentin 300 mg capsule 1 cap PO DAILY 04/24/22 05/24/22 hydralazine 50 mg tablet 2 tab PO TID 04/24/22 05/24/22 hydrocortisone 2.5 % topical cream 1 appl ME BID 04/24/22 05/24/22 with perineal applicator tiotropium bromide 18 mcg capsule 1 cap inhalation DAILY 04/24/22 05/24/22 with inhalation device (Spiriva with HandiHaler) albuterol sulfate 2.5 mg/3 mL 1 amp inhalation TID PRN Shortness 05/08/22 05/24/22 (0.083 %) solution for nebulization Of Breath Previous Rx's Medication Instructions Recorded amlodipine 10 mg tablet 10 mg PO BEDTIME #30 tabs 03/07/21 isosorbide mononitrate 30 mg 30 mg PO DAILY #30 tabs 09/20/21 tablet,extended release 24 hr docusate sodium 100 mg capsule 100 mg PO BID PRN Constipation #30 12/04/21 (Colace) caps diphenhydramine HCl 25 mg capsule 25 mg PO DAILY PRN allergy 04/30/22 (Benadryl) symptoms #30 caps polyethylene glycol 3350 17 17 g PO DAILY #238 grams 04/30/22 gram/dose oral powder (Miralax) acetaminophen 500 mg tablet 500 mg PO Q6H PRN fever or pain 05/29/22 #20 tabs Allergies Allergy/AdvReac Type Severity Reaction Status Date / Time No Known Allergies Allergy Mild NOT Verified 04/14/22 01:40 APPLICABLE Review of Systems Review of Systems: Constitutional : No Weight loss, No Fever, No Chills, No Night Sweats, No Fatigue, No Malaise ENT/Mouth : No Hearing loss, No Ear Pain, No Nasal Congestion, No Sinus Pain, No Hoarseness, No sore throat, No Rhinorrhea, No Swallowing Difficulty Eyes: No Eye Pain, No Swelling, No Redness, No Foreign Body, No Discharge, No Vision Changes Cardiovascular : No Chest Pain, No SOB, No Dyspnea on Exertion, complaining of chronic Orthopnea, No Edema, No Palpitations Respiratory : No Cough, No Sputum, No Wheezing, No Smoke Exposure, No Dyspnea Gastrointestinal : No Nausea, No Vomiting, No Diarrhea, No Constipation, No abdominal Pain, No Hematochezia, No Melena Genitourinary : no irregular bleeding, No Dysuria, No Urinary Frequency, No Hematuria, No Urinary Incontinence, No Urgency, No Flank Pain, No Urinary Flow Changes, No Hesitancy Musculoskeletal : Complaining of left-sided rib pain, No joint pain, No Myalgias, No Joint Swelling Skin : No Skin Lesions, No rash Neuro : No Weakness, No Numbness, No Paresthesias, No Loss of Consciousness, No Dizziness, No Headache Psych : No Anxiety/Panic, No Depression, No SI/HI/AH/VH, No Social Issues, Heme/Lymph: No Bruising, No Bleeding,No Lymphadenopathy Endocrine : No Polyuria, No Polydipsia, No Temperature Intolerance PMFSH Past Medical History Medical History Acute exacerbation of chronic obstructive pulmonary disease (COPD) Acute GI bleeding Anasarca Anemia in chronic kidney disease Ascites Asthma with COPD with exacerbation Constipation COVID COVID-19 virus infection Diabetes mellitus End stage renal disease on dialysis ESRD (end stage renal disease) Essential hypertension Heart failure with preserved ejection fraction Hypertrophic cardiomyopathy Ischemic colitis Opioid withdrawal Pulmonary congestion Surgical History No pertinent past surgical history Family History Family History Other Hypertension Social History Social History Household Members: None Housing: Apartment Do you presently have visiting nurse or other home services: Yes Unable to assess alcohol history related to: Unknown Alcohol intake: never Patient Tobacco Use Status: Current everyday Tobacco user Tobacco use type: Cigarette Cigarette Packs Per Day: 1 Cigarettes Per Day: 4 Years Smoked: 18 e-Cigarette/Vaping Use: Never Used Second Hand Smoke Exposure: No Substance Use Type: Heroin Advance Directives: Yes Advance Directives on File: Yes Advance Directives Date on File: 04/20/21 service: No Current occupational status: unemployed and disabled Physical Exam ED Vital Signs: Vital Signs - 24 hr 05/29/22 13:51 05/29/22 14:37 Temperature 97.9 F 98.0 F Pulse Rate 54 56 Respiratory Rate 18 20 Blood Pressure 153/60 H 141/58 H Pulse Oximetry 96 95 Oxygen Delivery Method Room Air Room Air BMI result Body Mass Index 26.0 Const Other: Appearance: Alert. Oriented X3. No acute distress. Eyes: Pupils equal, round and reactive to light. ENT: Pharynx normal. Neck: Normal inspection. Neck supple. No lymph nodes noted. No crepitus CVS: Normal heart rate and rhythm. Pulses normal. Normal S1 and S2 Respiratory: No respiratory distress. Breath sounds normal. No Wheezing. No rales Musculoskeletal: Pain to palpation on the ribs on the left side, laterally and posteriorly Abdomen: Soft and nontender. No rigidity. No distention. Skin: Skin warm and dry. Normal skin color. Normal skin turgor. No ecchymosis in thoracic area Extremities: No lower extremity edema. No Lacerations. No Rash Neuro: Oriented X 3. No motor deficit. No sensory deficit. Moving all extremities. No slurred speech. CN 2 through 12 grossly intact Psych: calm, cooperative, normal affect Course Course Course Narrative: Patient is otherwise well-appearing, at baseline. Patient states that her last dialysis was Sunday, has not skipped any sessions lately per patient. Patient is due for dialysis tomorrow. We will start with x-rays. On physical exam, oxygen saturation 97% on room air. Medical Decision Making Medical Decision Making MDM Narrative: Patient given 1 dose of p.o. Tylenol. Overall patient is feeling better, denies chest pain or shortness of breath. I reviewed the chest x-ray, no acute findings, cardiomegaly, no rib fractures Differential Diagnosis Differential Diagnoses: The differential diagnosis associated with the presentation includes (Rib fracture, contusion, hematoma) Independent Interpretation I performed an independent interpretation of an: Plain X-Ray (No rib fractures, cardiomegaly) Radiology Impression Discussion of test interpretation with radiology: I have reviewed the radiologist's reading. Radiologist Impression: FINDINGS: Lungs are well-inflated and without evidence of acute disease. No pulmonary consolidation, pleural effusion or pneumothorax. Cardiac silhouette exhibits stable enlargement compared to 05/07/2022. Pulmonary vascular pattern is normal. The tip of the dialysis catheter is at the level of the proximal right atrium. No acute skeletal findings. No evidence of an acute, displaced rib fracture. XR/XR ribs LT min 3V w CXR1V IMPRESSION: *? Cardiomegaly. No acute cardiopulmonary abnormality. *? No radiographic evidence of rib injury. Discharge Plan Discharge Clinical Impression: Costochondritis Patient Disposition: Home, Self-Care Instructions: Costochondritis (ED) Additional Instructions: Please follow-up with your primary care physician tomorrow. If you have any worsening or new symptoms, please return to the emergency room or call 911 Prescriptions: New acetaminophen 500 mg tablet 500 mg PO Q6H PRN (Reason: fever or pain) Qty: 20 0RF No Action buprenorphine-naloxone [Suboxone] 8-2 mg film 2 strip sublingual DAILY diltiazem HCl 180 mg capsule,extended release 24hr 360 mg PO DAILY acetaminophen 500 mg Tablet 500 mg PO Q8H PRN (Reason: Pain, Mild) clonidine HCl 0.2 mg tablet 0.2 mg PO BID insulin aspart U-100 [Novolog PenFill U-100 Insulin] 100 unit/mL Cartridge 1 sliding scale dose SUBCUT USEASDIRECTD Protocol: Insulin Correction Scale Less than or equal to 110 ---- Give (units): 0 111 to 150 Give (units): 0 151 to 200 Give (units): 4 201 to 250 Give (units): 6 251 to 300 Give (units): 8 301 to 350 Give (units): 10 Greater than 350 Give (units): 12 Call MD if Blood Glucose > : 350 docusate sodium [Colace] 100 mg capsule 100 mg PO BID PRN (Reason: Constipation) Qty: 30 0RF amlodipine 10 mg Tablet 10 mg PO BEDTIME Qty: 30 0RF Protocol: Hold for SBP< HOLD for SBP < : 90 Rx Instructions: replaces prior dose of 5 mg daily bumetanide 2 mg Tablet 2 mg PO DAILY pantoprazole 40 mg Tablet,Delayed Release (Dr/Ec) 40 mg PO DAILY melatonin 5 mg Tablet 5 mg PO BEDTIME PRN (Reason: Sleep) [employer] 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-[facility] 1-60-300 mg-mg-mcg Tablet 1 tab PO DAILY fluticasone propionate [Flovent HFA] 110 mcg/actuation Hfa Aerosol Inhaler 1 puff INHALATION BID sennosides [senna] 8.6 mg tablet 1 - 2 tab PO BEDTIME PRN (Reason: constipation) insulin glargine [Lantus U-100 Insulin] 100 unit/mL solution 7 unit subcut DAILY isosorbide mononitrate 30 mg Tablet Extended Release 24 Hr 30 mg PO DAILY Qty: 30 0RF Protocol: Hold for SBP< HOLD for SBP < : 90 aspirin 81 mg tablet,delayed release (DR/EC) 1 tab PO DAILY albuterol sulfate [Ventolin HFA] 90 mcg/actuation HFA aerosol inhaler 2 puff INHALATION Q4H PRN (Reason: wheezing) diclofenac sodium 1 % gel 2 g topical BID ondansetron 4 mg tablet,disintegrating 4 mg PO BID PRN (Reason: nausea and vomiting) carvedilol 6.25 mg tablet 1 tab PO BID Spiriva with HandiHaler 18 mcg capsule, w/inhalation device 1 cap inhalation DAILY hydralazine 50 mg tablet 2 tab PO TID hydrocortisone 2.5 % cream with perineal applicator 1 appl ME BID gabapentin 300 mg capsule 1 cap PO DAILY diphenhydramine HCl [Benadryl] 25 mg capsule 25 mg PO DAILY PRN (Reason: allergy symptoms) Qty: 30 0RF polyethylene glycol 3350 [Miralax] 17 gram/dose powder 17 g PO DAILY Qty: 238 0RF albuterol sulfate 2.5 mg /3 mL (0.083 %) solution for nebulization 1 amp inhalation TID PRN (Reason: Shortness Of Breath)
[2022-05-29 14:37] VITALS: BP 141/58; PULSE 56; RESP 20; TEMP 36.7; O2SAT 95
[2022-05-29] MEDS: Acetaminophen 325 MG TABLET 650 MG PO (15:33)
== END 2022-05-29 16:04 | disposition home or self-care (01) ==
PROVIDERS: Emergency Provider Emergency Medicine; PCP Internal Medicine
DX: M94.0 Chondrocostal junction syndrome [Tietze] (principal); F11.20 Opioid dependence, uncomplicated; E11.22 Type 2 diabetes mellitus with diabetic chronic kidney disease; I13.2 Hypertensive heart and chronic kidney disease with heart failure and with stage 5 chronic kidney disease, or end stage renal disease; I50.9 Heart failure, unspecified; N18.6 End stage renal disease; Z99.2 Dependence on renal dialysis; D63.1 Anemia in chronic kidney disease; F17.210 Nicotine dependence, cigarettes, uncomplicated; Z79.899 Other long term (current) drug therapy; Z79.02 Long term (current) use of antithrombotics/antiplatelets; Z79.4 Long term (current) use of insulin
CPT/HCPCS: 71101; 99283; 99284

== ENCOUNTER 2022-06-26 13:46 | Emergency (ER) | payer OTHER, SELFPAY ==
[2022-06-26] VITALS (10 sets, daily range): BP systolic 160–225; BP diastolic 80–106; PULSE 62–95; RESP 15–40; TEMP 36.3–36.4; O2SAT 90–98; BMI 21.5
--- NOTE | ~2022-06-26 | XR_ITS ---
EXAMINATION: XR KNEE, RIGHT CLINICAL INFORMATION: Right knee pain. COMPARISON: None TECHNIQUE: Four views of the right knee. XR/XR knee RT 4V FINDINGS/IMPRESSION: Examination demonstrates severe tricompartmental osteoarthritis predominantly involving the medial and patellofemoral compartments. No fracture or dislocation is appreciated. No lytic or sclerotic bony lesion is identified. No suprapatellar effusion is noted. Vascular calcification is present.
--- NOTE | ~2022-06-26 | XR_ITS ---
EXAMINATION: XR CHEST CLINICAL INFORMATION: Shortness of breath COMPARISON: 05/29/2022 TECHNIQUE: Frontal view of the chest was obtained. FINDINGS: Again seen is a tunneled right IJ dialysis catheter with its tip in good position in the RA. Since the prior study, there is increased interstitial markings and central vascular prominence suggesting fluid overload/CHF. No large pleural effusions are seen. Heart size upper limits of normal. No focal consolidations with air bronchograms are seen. No lung masses. XR/XR chest 1V IMPRESSION: Mild CHF/fluid overload.
--- NOTE | 2022-06-26 14:41 | ECG_ITS ---
Test Reason : sob Blood Pressure : / mmHG Vent. Rate : 065 BPM Atrial Rate : 065 BPM P-R Int : 184 ms QRS Dur : 098 ms QT Int : 460 ms P-R-T Axes : 063 -16 076 degrees QTc Int : 478 ms Normal sinus rhythm Left atrial enlargement Left ventricular hypertrophy with repolarization abnormality ( R in aVL , Sokolow-Burton , Jona product ) Abnormal ECG When compared with ECG of 07-MAY-2022 19:33, No significant change was found Referred By: Jass Guadalupe Electronically Signed By:CRISTIAN REMY MD
--- NOTE | 2022-06-26 14:44 | ED.GENADULT ---
HPI - General Adult General Chief complaint: General Medical Stated complaint: L HIP PAIN,NO FALL PER EMS Time Seen by Provider: 06/26/22 16:07 Related Data Home Medications Medication Instructions Recorded Confirmed buprenorphine 8 mg-naloxone 2 mg 2 strip sublingual DAILY 10/22/20 05/24/22 sublingual film (Suboxone) diltiazem HCl 180 mg 360 mg PO DAILY 10/22/20 05/24/22 capsule,extended release 24 hr bumetanide 2 mg tablet 2 mg PO DAILY 04/15/21 05/24/22 fluticasone propionate 110 1 puff inhalation BID 04/15/21 05/24/22 mcg/actuation HFA aerosol inhaler (Flovent HFA) melatonin 5 mg tablet 5 mg PO BEDTIME PRN Sleep 04/15/21 05/24/22 pantoprazole 40 mg tablet,delayed 40 mg PO DAILY 04/15/21 05/24/22 release vitamin B comp no.3-folic acid 1 1 tab PO DAILY 04/15/21 05/24/22 mg-vit C 60 mg-biotin 300 mcg tablet ([facility]) sennosides 8.6 mg tablet (senna) 1 - 2 tab PO BEDTIME PRN 05/11/21 05/24/22 constipation acetaminophen 500 mg tablet 500 mg PO Q8H PRN Pain, Mild 06/10/21 05/24/22 clonidine HCl 0.2 mg tablet 0.2 mg PO BID 07/27/21 05/24/22 insulin aspart U-100 100 unit/mL 1 sliding scale dose subcut 07/27/21 05/24/22 subcutaneous cartridge (Novolog USEASDIRECTD PenFill U-100 Insulin aspart) insulin glargine 100 unit/mL 7 unit subcut DAILY 09/18/21 05/24/22 subcutaneous solution (Lantus U-100 Insulin) aspirin 81 mg tablet,delayed 1 tab PO DAILY 10/11/21 05/24/22 release albuterol sulfate 90 mcg/actuation 2 puff inhalation Q4H PRN wheezing 01/31/22 05/24/22 aerosol inhaler (Ventolin HFA) diclofenac sodium 1 % topical gel 2 g topical BID 03/09/22 05/24/22 ondansetron 4 mg disintegrating 4 mg PO BID PRN nausea and vomiting 03/09/22 05/24/22 tablet carvedilol 6.25 mg tablet 1 tab PO BID 04/24/22 05/24/22 gabapentin 300 mg capsule 1 cap PO DAILY 04/24/22 05/24/22 hydralazine 50 mg tablet 2 tab PO TID 04/24/22 05/24/22 hydrocortisone 2.5 % topical cream 1 appl [place] BID 04/24/22 05/24/22 with perineal applicator tiotropium bromide 18 mcg capsule 1 cap inhalation DAILY 04/24/22 05/24/22 with inhalation device (Spiriva with HandiHaler) albuterol sulfate 2.5 mg/3 mL 1 amp inhalation TID PRN Shortness 05/08/22 05/24/22 (0.083 %) solution for nebulization Of Breath Previous Rx's Medication Instructions Recorded amlodipine 10 mg tablet 10 mg PO BEDTIME #30 tabs 03/07/21 isosorbide mononitrate 30 mg 30 mg PO DAILY #30 tabs 09/20/21 tablet,extended release 24 hr docusate sodium 100 mg capsule 100 mg PO BID PRN Constipation #30 12/04/21 (Colace) caps diphenhydramine HCl 25 mg capsule 25 mg PO DAILY PRN allergy 04/30/22 (Benadryl) symptoms #30 caps polyethylene glycol 3350 17 17 g PO DAILY #238 grams 04/30/22 gram/dose oral powder (Miralax) acetaminophen 500 mg tablet 500 mg PO Q6H PRN fever or pain 05/29/22 #20 tabs Allergies Allergy/AdvReac Type Severity Reaction Status Date / Time No Known Allergies Allergy Mild NOT Verified 04/14/22 01:40 APPLICABLE FORMERLY [facility] Past Medical History Medical History Acute exacerbation of chronic obstructive pulmonary disease (COPD) Acute GI bleeding Anasarca Anemia Anemia in chronic kidney disease Ascites Asthma with COPD with exacerbation Constipation COVID COVID-19 virus infection Diabetes mellitus End stage renal disease on dialysis ESRD (end stage renal disease) ESRD (end stage renal disease) Essential hypertension Heart failure with preserved ejection fraction Hypertension Hypertrophic cardiomyopathy Ischemic colitis Opioid withdrawal Pulmonary congestion Surgical History No pertinent past surgical history Family History Family History Other Hypertension Social History Social History Household Members: None Housing: Apartment Do you presently have visiting nurse or other home services: Yes Unable to assess alcohol history related to: Unknown Alcohol intake: former Patient Tobacco Use Status: Current everyday Tobacco user Tobacco use type: Cigarette Cigarette Packs Per Day: 1 Cigarettes Per Day: 4 Years Smoked: 18 Smoked in Last 30 Days: No e-Cigarette/Vaping Use: Never Used Second Hand Smoke Exposure: No Substance Use Type: Heroin Advance Directives: Yes Advance Directives on File: Yes Advance Directives Date on File: 04/17/22 Patient : No service: No Current occupational status: unemployed and disabled Physical Exam ED Vital Signs: Vital Signs - 24 hr 06/26/22 14:37 Temperature 97.3 F Pulse Rate 70 Respiratory Rate 20 Blood Pressure 204/96 H Pulse Oximetry 98 Oxygen Delivery Method Room Air BMI result Body Mass Index 21.5 Course Course Course Narrative: RME: 67 yolf female presents to the ED for RIght knee pain and anal pain. patient is diaylsis patient and scheduled for //sunday. patient has never missed dialysis. patient denies any trauma, chest pain, shortness of breath, leg swelling, calf pain, or coughing. patient hypertensive probaby from pain. lungs are clear. negative for signs of fluid overload. Due to elevated blood pressure will do labs and EkG. RIght knee xray ordered. patietn states she took hypertensive meds this morning. INformed CHarge nurse ( Dsetiny) of patient and elevated blood pressure for placement in ED bed when availalbe. no neuro deficits. patient is not toxic appearing. Medications Administered Discontinued Medications Generic Name Dose Route Start Last Admin Trade Name Freq PRN Reason Stop Dose Admin Albuterol Sulfate 2.5 mg 06/26/22 16:15 06/26/22 16:44 Albuterol Sulfate (0.083%) 2.5 Mg/3 Ml Vial.Neb INHALE 06/26/22 16:16 2.5 mg ONCE ONE Administration Albuterol Sulfate 10 mg 06/26/22 17:38 06/26/22 18:37 Albuterol Sulfate (0.083%) 2.5 Mg/3 Ml Vial.Neb INHALE 06/26/22 17:39 10 mg ONCE ONE Administration Fentanyl 50 mcg 06/26/22 17:35 06/26/22 18:12 Fentanyl Citrate/Pf 100 Mcg/2 Ml Vial IVPUSH 06/26/22 17:36 50 mcg ONCE ONE Administration Protocol Furosemide 100 mg 06/26/22 17:35 06/26/22 18:16 Furosemide 100 Mg/10 Ml Vial IVPUSH 06/26/22 17:36 100 mg ONCE ONE Administration Protocol Labetalol HCl 20 mg 06/26/22 16:25 06/26/22 16:33 Labetalol Hcl 100 Mg/20 Ml Vial IVPUSH 06/26/22 16:26 20 mg ONCE ONE Administration Labetalol HCl 20 mg 06/26/22 18:52 06/26/22 19:13 Labetalol Hcl 100 Mg/20 Ml Vial IVPUSH 06/26/22 18:53 20 mg ONCE ONE Administration Lorazepam 1 mg 06/26/22 18:52 06/26/22 19:13 Lorazepam 2 Mg/Ml Vial IVPUSH 06/26/22 18:53 1 mg ONCE ONE Administration Methylprednisolone Sodium Succinate 125 mg 06/26/22 16:15 06/26/22 16:33 Methylprednisolone Sod Succ 125 Mg/2 Ml Vial IVPUSH 06/26/22 16:16 125 mg ONCE ONE Administration Nitroglycerin 1 inch 06/26/22 17:35 06/26/22 18:20 Nitroglycerin 2 % Oint 1 Gm Packet TRANSDERMA 06/26/22 17:36 1 inch ONCE ONE Administration Medical Decision Making Lab Data 06/26/22 16:24 06/26/22 16:24 Labs: Lab Results 06/26/22 06/26/22 06/26/22 Range/Units 16:24 16:24 16:24 WBC 13.4 H (4.8-10.8) X10*3/uL RBC 3.91 L (4.20-5.50) X10*6/uL Hgb 11.8 L (12.0-16.0) g/dl Hct 34.8 L (37.0-47.0) % MCV 89.0 (80.0-98.0) fL MCH 30.2 (27.0-33.0) pg MCHC 33.9 (31.0-35.0) g/dl RDW 16.4 H (11.0-16.0) % Plt Count 190 (160-400) X10*3/uL MPV 8.9 L (9.4-12.3) fL Immature Gran % (Auto) 0.5 H (0.0-0.4) % Neut % (Auto) 70.3 (45-73) % Lymph % (Auto) 19.8 L (20-40) % [place] % (Auto) 6.4 (2-11) % Eos % (Auto) 2.6 (0-4) % Baso % (Auto) 0.4 (0-2) % Lymph # (Auto) 2.7 (1.2-4.9) X10*3/uL [place] # (Auto) 0.9 (0.1-1.2) X10*3/uL Eos # (Auto) 0.4 (0.0-0.4) X10*3/uL Baso # (Auto) 0.1 (0.0-0.2) X10*3/uL Abs Immat Gran (auto) 0.07 H (0.00-0.03) X10*3/uL Absolute Neuts (auto) 9.4 H (2.0-8.3) x10*3/uL Absolute Nucleated RBC 0.000 (0.0-0.012) X10*3/uL Nucleated RBC % (auto) 0.0 (0.0-0.2) /100WBC PT 9.8 L (10.0-13.1) SEC INR 0.9 (0.9-1.1) APTT 32.8 (26.0-36.4) SEC VBG pH (7.32-7.43) VBG pCO2 mmHg VBG pO2 mmHg VBG HCO3 (22-26) mmol/L VBG O2 Saturation % VBG Base Excess mmol/L Sodium 128 L (135-145) mmol/L Potassium 5.2 H (3.3-5.1) mmol/L Chloride 88 L (96-108) mmol/L Carbon Dioxide 24 (22-29) mmol/L Anion Gap 21 H (12-20) BUN 49 H (9-16) mg/dL Creatinine 6.54 H* (0.5-1.4) mg/dL Estim Creat Clear Calc 6.4 Estimated GFR 6 Random Glucose 174 H (60-115) mg/dL Lactic Acid (0.5-2.0) mmol/L Calcium 10.0 D (8.4-10.2) mg/dL Total Bilirubin 0.8 (0.0-1.0) mg/dL AST 25 (5-31) U/L ALT 14 (0-31) U/L Alkaline Phosphatase 287 H (39-117) U/L Troponin I High Sens (<3.5-17.0) ng/L B-Natriuretic Peptide (<100) pg/mL Total Protein 8.4 H (6.5-8.0) g/dL Albumin 4.9 (3.5-5.0) g/dL Influenza Type A (PCR) (Negative) Influenza Type B (PCR) (Negative) RSV RNA Qual (PCR) (Negative) SARS-CoV-2 RNA (RT-PCR) (Negative) 06/26/22 06/26/22 06/26/22 Range/Units 16:24 16:24 17:06 WBC (4.8-10.8) X10*3/uL RBC (4.20-5.50) X10*6/uL Hgb (12.0-16.0) g/dl Hct (37.0-47.0) % MCV (80.0-98.0) fL MCH (27.0-33.0) pg MCHC (31.0-35.0) g/dl RDW (11.0-16.0) % Plt Count (160-400) X10*3/uL MPV (9.4-12.3) fL Immature Gran % (Auto) (0.0-0.4) % Neut % (Auto) (45-73) % Lymph % (Auto) (20-40) % [place] % (Auto) (2-11) % Eos % (Auto) (0-4) % Baso % (Auto) (0-2) % Lymph # (Auto) (1.2-4.9) X10*3/uL [place] # (Auto) (0.1-1.2) X10*3/uL Eos # (Auto) (0.0-0.4) X10*3/uL Baso # (Auto) (0.0-0.2) X10*3/uL Abs Immat Gran (auto) (0.00-0.03) X10*3/uL Absolute Neuts (auto) (2.0-8.3) x10*3/uL Absolute Nucleated RBC (0.0-0.012) X10*3/uL Nucleated RBC % (auto) (0.0-0.2) /100WBC PT (10.0-13.1) SEC INR (0.9-1.1) APTT (26.0-36.4) SEC VBG pH (7.32-7.43) VBG pCO2 mmHg VBG pO2 mmHg VBG HCO3 (22-26) mmol/L VBG O2 Saturation % VBG Base Excess mmol/L Sodium (135-145) mmol/L Potassium (3.3-5.1) mmol/L Chloride (96-108) mmol/L Carbon Dioxide (22-29) mmol/L Anion Gap (12-20) BUN (9-16) mg/dL Creatinine (0.5-1.4) mg/dL Estim Creat Clear Calc Estimated GFR Random Glucose (60-115) mg/dL Lactic Acid 1.2 (0.5-2.0) mmol/L Calcium (8.4-10.2) mg/dL Total Bilirubin (0.0-1.0) mg/dL AST (5-31) U/L ALT (0-31) U/L Alkaline Phosphatase (39-117) U/L Troponin I High Sens 37.0 H (<3.5-17.0) ng/L B-Natriuretic Peptide 8110 H (<100) pg/mL Total Protein (6.5-8.0) g/dL Albumin (3.5-5.0) g/dL Influenza Type A (PCR) (Negative) Influenza Type B (PCR) (Negative) RSV RNA Qual (PCR) (Negative) SARS-CoV-2 RNA (RT-PCR) (Negative) 06/26/22 06/26/22 Range/Units 17:06 20:25 WBC (4.8-10.8) X10*3/uL RBC (4.20-5.50) X10*6/uL Hgb (12.0-16.0) g/dl Hct (37.0-47.0) % MCV (80.0-98.0) fL MCH (27.0-33.0) pg MCHC (31.0-35.0) g/dl RDW (11.0-16.0) % Plt Count (160-400) X10*3/uL MPV (9.4-12.3) fL Immature Gran % (Auto) (0.0-0.4) % Neut % (Auto) (45-73) % Lymph % (Auto) (20-40) % [place] % (Auto) (2-11) % Eos % (Auto) (0-4) % Baso % (Auto) (0-2) % Lymph # (Auto) (1.2-4.9) X10*3/uL [place] # (Auto) (0.1-1.2) X10*3/uL Eos # (Auto) (0.0-0.4) X10*3/uL Baso # (Auto) (0.0-0.2) X10*3/uL Abs Immat Gran (auto) (0.00-0.03) X10*3/uL Absolute Neuts (auto) (2.0-8.3) x10*3/uL Absolute Nucleated RBC (0.0-0.012) X10*3/uL Nucleated RBC % (auto) (0.0-0.2) /100WBC PT (10.0-13.1) SEC INR (0.9-1.1) APTT (26.0-36.4) SEC VBG pH 7.42 (7.32-7.43) VBG pCO2 42 mmHg VBG pO2 78 mmHg VBG HCO3 27 H (22-26) mmol/L VBG O2 Saturation 95.0 % VBG Base Excess 3.1 mmol/L Sodium (135-145) mmol/L Potassium (3.3-5.1) mmol/L Chloride (96-108) mmol/L Carbon Dioxide (22-29) mmol/L Anion Gap (12-20) BUN (9-16) mg/dL Creatinine (0.5-1.4) mg/dL Estim Creat Clear Calc Estimated GFR Random Glucose (60-115) mg/dL Lactic Acid (0.5-2.0) mmol/L Calcium (8.4-10.2) mg/dL Total Bilirubin (0.0-1.0) mg/dL AST (5-31) U/L ALT (0-31) U/L Alkaline Phosphatase (39-117) U/L Troponin I High Sens (<3.5-17.0) ng/L B-Natriuretic Peptide (<100) pg/mL Total Protein (6.5-8.0) g/dL Albumin (3.5-5.0) g/dL Influenza Type A (PCR) NEGATIVE (Negative) Influenza Type B (PCR) NEGATIVE (Negative) RSV RNA Qual (PCR) NEGATIVE (Negative) SARS-CoV-2 RNA (RT-PCR) NEGATIVE (Negative) Discharge Plan Discharge Clinical Impression: Fluid overload Patient Disposition: Home, Self-Care Instructions: Pulmonary Edema (ED) Prescriptions: No Action buprenorphine-naloxone [Suboxone] 8-2 mg film 2 strip sublingual DAILY diltiazem HCl 180 mg capsule,extended release 24hr 360 mg PO DAILY acetaminophen 500 mg Tablet 500 mg PO Q8H PRN (Reason: Pain, Mild) clonidine HCl 0.2 mg tablet 0.2 mg PO BID insulin aspart U-100 [Novolog PenFill U-100 Insulin] 100 unit/mL Cartridge 1 sliding scale dose SUBCUT USEASDIRECTD Protocol: Insulin Correction Scale Less than or equal to 110 ---- Give (units): 0 111 to 150 Give (units): 0 151 to 200 Give (units): 4 201 to 250 Give (units): 6 251 to 300 Give (units): 8 301 to 350 Give (units): 10 Greater than 350 Give (units): 12 Call MD if Blood Glucose > : 350 docusate sodium [Colace] 100 mg capsule 100 mg PO BID PRN (Reason: Constipation) Qty: 30 0RF amlodipine 10 mg Tablet 10 mg PO BEDTIME Qty: 30 0RF Protocol: Hold for SBP< HOLD for SBP < : 90 Rx Instructions: replaces prior dose of 5 mg daily bumetanide 2 mg Tablet 2 mg PO DAILY pantoprazole 40 mg Tablet,Delayed Release (Dr/Ec) 40 mg PO DAILY melatonin 5 mg Tablet 5 mg PO BEDTIME PRN (Reason: Sleep) [facility] Rx 1-60-300 mg-mg-mcg Tablet 1 tab PO DAILY fluticasone propionate [Flovent HFA] 110 mcg/actuation Hfa Aerosol Inhaler 1 puff INHALATION BID sennosides [senna] 8.6 mg tablet 1 - 2 tab PO BEDTIME PRN (Reason: constipation) insulin glargine [Lantus U-100 Insulin] 100 unit/mL solution 7 unit subcut DAILY isosorbide mononitrate 30 mg Tablet Extended Release 24 Hr 30 mg PO DAILY Qty: 30 0RF Protocol: Hold for SBP< HOLD for SBP < : 90 aspirin 81 mg tablet,delayed release (DR/EC) 1 tab PO DAILY albuterol sulfate [Ventolin HFA] 90 mcg/actuation HFA aerosol inhaler 2 puff INHALATION Q4H PRN (Reason: wheezing) diclofenac sodium 1 % gel 2 g topical BID ondansetron 4 mg tablet,disintegrating 4 mg PO BID PRN (Reason: nausea and vomiting) carvedilol 6.25 mg tablet 1 tab PO BID Spiriva with HandiHaler 18 mcg capsule, w/inhalation device 1 cap inhalation DAILY hydralazine 50 mg tablet 2 tab PO TID hydrocortisone 2.5 % cream with perineal applicator 1 appl [place] BID gabapentin 300 mg capsule 1 cap PO DAILY diphenhydramine HCl [Benadryl] 25 mg capsule 25 mg PO DAILY PRN (Reason: allergy symptoms) Qty: 30 0RF polyethylene glycol 3350 [Miralax] 17 gram/dose powder 17 g PO DAILY Qty: 238 0RF albuterol sulfate 2.5 mg /3 mL (0.083 %) solution for nebulization 1 amp inhalation TID PRN (Reason: Shortness Of Breath) acetaminophen 500 mg tablet 500 mg PO Q6H PRN (Reason: fever or pain) Qty: 20 0RF Referrals: Physician,Unknown J [Primary Care Provider] - (Please keep to your regular dialysis schedule.) Interventions: ED Discharge Assessment Last Done: 06/27/22 01:36 Discharge Date/Time: 06/27/22 01:37 Print Language: E[place]re[place]
--- NOTE | 2022-06-26 16:25 | ED_ITS ---
HPI - General Adult General Chief complaint: General Medical <Adrien Manzano MD - Last Filed: 06/26/22 22:34> Stated complaint: L HIP PAIN,NO FALL PER EMS <Adrien Manzano MD - Last Filed: 06/26/22 22:34> Time Seen by Provider: 06/26/22 16:07 <Adrien Manzano MD - Last Filed: 06/26/22 22:34> Source: patient, RN notes reviewed and old records reviewed <Adrien Manzano MD - Last Filed: 06/26/22 22:34> Limitations: other (Too ill to give history) <Adrien Manzano MD - Last Filed: 06/26/22 22:34> History of Present Illness HPI narrative: Patient with a history of end-stage renal disease, poor compliance with dialysis, multiple admissions for exacerbations of both CHF and COPD, presents initially today with knee pain after a fall as well as rectal pain. She then at some point became extremely short of breath. For my 1st evaluation patient is diaphoretic try potting and unable to supply history Review of records shows history of tobacco use disorder. For hemodialysis compliance. Severe hypertension. Insulin-dependent diabetes. Rectal pain secondary to constipation. <Adrien Manzano MD - Last Filed: 06/26/22 22:34> Related Data Home medications: Home Medications Medication Instructions Recorded Confirmed buprenorphine 8 mg-naloxone 2 mg 2 strip sublingual DAILY 10/22/20 05/24/22 sublingual film (Suboxone) diltiazem HCl 180 mg 360 mg PO DAILY 10/22/20 05/24/22 capsule,extended release 24 hr bumetanide 2 mg tablet 2 mg PO DAILY 04/15/21 05/24/22 fluticasone propionate 110 1 puff inhalation BID 04/15/21 05/24/22 mcg/actuation HFA aerosol inhaler (Flovent HFA) melatonin 5 mg tablet 5 mg PO BEDTIME PRN Sleep 04/15/21 05/24/22 pantoprazole 40 mg tablet,delayed 40 mg PO DAILY 04/15/21 05/24/22 release vitamin B comp no.3-folic acid 1 1 tab PO DAILY 04/15/21 05/24/22 mg-vit C 60 mg-biotin 300 mcg tablet ([facility]) sennosides 8.6 mg tablet (senna) 1 - 2 tab PO BEDTIME PRN 05/11/21 05/24/22 constipation acetaminophen 500 mg tablet 500 mg PO Q8H PRN Pain, Mild 06/10/21 05/24/22 clonidine HCl 0.2 mg tablet 0.2 mg PO BID 07/27/21 05/24/22 insulin aspart U-100 100 unit/mL 1 sliding scale dose subcut 07/27/21 05/24/22 subcutaneous cartridge (Novolog USEASDIRECTD PenFill U-100 Insulin aspart) insulin glargine 100 unit/mL 7 unit subcut DAILY 09/18/21 05/24/22 subcutaneous solution (Lantus U-100 Insulin) aspirin 81 mg tablet,delayed 1 tab PO DAILY 10/11/21 05/24/22 release albuterol sulfate 90 mcg/actuation 2 puff inhalation Q4H PRN wheezing 01/31/22 05/24/22 aerosol inhaler (Ventolin HFA) diclofenac sodium 1 % topical gel 2 g topical BID 03/09/22 05/24/22 ondansetron 4 mg disintegrating 4 mg PO BID PRN nausea and vomiting 03/09/22 05/24/22 tablet carvedilol 6.25 mg tablet 1 tab PO BID 04/24/22 05/24/22 gabapentin 300 mg capsule 1 cap PO DAILY 04/24/22 05/24/22 hydralazine 50 mg tablet 2 tab PO TID 04/24/22 05/24/22 hydrocortisone 2.5 % topical cream 1 appl FL BID 04/24/22 05/24/22 with perineal applicator tiotropium bromide 18 mcg capsule 1 cap inhalation DAILY 04/24/22 05/24/22 with inhalation device (Spiriva with HandiHaler) albuterol sulfate 2.5 mg/3 mL 1 amp inhalation TID PRN Shortness 05/08/22 05/24/22 (0.083 %) solution for nebulization Of Breath Previous Rx's Medication Instructions Recorded amlodipine 10 mg tablet 10 mg PO BEDTIME #30 tabs 03/07/21 isosorbide mononitrate 30 mg 30 mg PO DAILY #30 tabs 09/20/21 tablet,extended release 24 hr docusate sodium 100 mg capsule 100 mg PO BID PRN Constipation #30 12/04/21 (Colace) caps diphenhydramine HCl 25 mg capsule 25 mg PO DAILY PRN allergy 04/30/22 (Benadryl) symptoms #30 caps polyethylene glycol 3350 17 17 g PO DAILY #238 grams 04/30/22 gram/dose oral powder (Miralax) acetaminophen 500 mg tablet 500 mg PO Q6H PRN fever or pain 05/29/22 #20 tabs <Adrien Manzano MD - Last Filed: 06/26/22 22:34> Allergies/adverse reactions: Allergies Allergy/AdvReac Type Severity Reaction Status Date / Time No Known Allergies Allergy Mild NOT Verified 04/14/22 01:40 APPLICABLE <Adrien Manzano MD - Last Filed: 06/26/22 22:34> Review of Systems Review of Systems: Unable to answer review of systems questions <Adrien Manzano MD - Last Filed: 06/26/22 22:34> PMFSH Past Medical History Medical History: Medical History Acute exacerbation of chronic obstructive pulmonary disease (COPD) Acute GI bleeding Anasarca Anemia in chronic kidney disease Ascites Asthma with COPD with exacerbation Constipation COVID COVID-19 virus infection Diabetes mellitus End stage renal disease on dialysis ESRD (end stage renal disease) Essential hypertension Heart failure with preserved ejection fraction Hypertrophic cardiomyopathy Ischemic colitis Opioid withdrawal Pulmonary congestion <Adrien Manzano MD - Last Filed: 06/26/22 22:34> Surgical History: Surgical History No pertinent past surgical history <Adrien Manzano MD - Last Filed: 06/26/22 22:34> Family History Family History: Family History Other Hypertension <Adrien Manzano MD - Last Filed: 06/26/22 22:34> Social History Social History: Social History Household Members: None Housing: Apartment Do you presently have visiting nurse or other home services: Yes Unable to assess alcohol history related to: Unknown Alcohol intake: never Patient Tobacco Use Status: Current everyday Tobacco user Tobacco use type: Cigarette Cigarette Packs Per Day: 1 Cigarettes Per Day: 4 Years Smoked: 18 e-Cigarette/Vaping Use: Never Used Second Hand Smoke Exposure: No Substance Use Type: Heroin Advance Directives: Yes Advance Directives on File: Yes Advance Directives Date on File: 04/17/22 service: No Current occupational status: unemployed and disabled <Adrien Manzano MD - Last Filed: 06/26/22 22:34> Physical Exam ED Vital Signs: Vital Signs - 24 hr 06/26/22 14:37 06/26/22 16:31 06/26/22 16:00 Temperature 97.3 F Pulse Rate 70 84 Respiratory Rate 20 40 H 24 H Blood Pressure 204/96 H 189/91 H Pulse Oximetry 98 90 L Oxygen Delivery Method Room Air BiPAP Oxygen Flow Rate 06/26/22 16:44 06/26/22 18:00 06/26/22 18:38 Temperature Pulse Rate 62 78 65 Respiratory Rate 18 20 40 H Blood Pressure 225/106 H Pulse Oximetry 91 L Oxygen Delivery Method BiPAP Oxygen Flow Rate 06/26/22 19:16 06/26/22 19:44 06/26/22 20:20 Temperature Pulse Rate 65 64 Respiratory Rate 20 20 20 Blood Pressure 186/80 H 186/84 H Pulse Oximetry 95 92 Oxygen Delivery Method BiPAP High Flow Nasal Cannula Oxygen Flow Rate 6 06/26/22 23:07 Temperature 97.5 F Pulse Rate 63 Respiratory Rate 15 Blood Pressure 182/85 H Pulse Oximetry 97 Oxygen Delivery Method Room Air Oxygen Flow Rate BMI result Body Mass Index 21.5 <Adrien Manzano MD - Last Filed: 06/26/22 22:34> Vital Signs - 24 hr 06/26/22 14:37 06/26/22 16:31 06/26/22 16:00 Temperature 97.3 F Pulse Rate 70 84 Respiratory Rate 20 40 H 24 H Blood Pressure 204/96 H 189/91 H Pulse Oximetry 98 90 L Oxygen Delivery Method Room Air BiPAP Oxygen Flow Rate 06/26/22 16:44 06/26/22 18:00 06/26/22 18:38 Temperature Pulse Rate 62 78 65 Respiratory Rate 18 20 40 H Blood Pressure 225/106 H Pulse Oximetry 91 L Oxygen Delivery Method BiPAP Oxygen Flow Rate 06/26/22 19:16 06/26/22 19:44 06/26/22 20:20 Temperature Pulse Rate 65 64 Respiratory Rate 20 20 20 Blood Pressure 186/80 H 186/84 H Pulse Oximetry 95 92 Oxygen Delivery Method BiPAP High Flow Nasal Cannula Oxygen Flow Rate 6 06/26/22 23:07 Temperature 97.5 F Pulse Rate 63 Respiratory Rate 15 Blood Pressure 182/85 H Pulse Oximetry 97 Oxygen Delivery Method Room Air Oxygen Flow Rate BMI result Body Mass Index 21.5 <Miran Betancourt MD - Last Filed: 06/27/22 00:04> Const Other: Awake. 1-2 word answers. Diaphoretic. Tripoding. Obvious severe respiratory distress <Adrien Manzano MD - Last Filed: 06/26/22 22:34> Resp Other: Diminished bilaterally. Bilateral rales. <Adrien Manzano MD - Last Filed: 06/26/22 22:34> Cardio Other: Regular rate and rhythm without murmurs rubs or gallops. Severe hypertension with systolic 210 over diastolic 94 <Adrien Manzano MD - Last Filed: 06/26/22 22:34> GI Other: Soft nontender nondistended <Adrien Manzano MD - Last Filed: 06/26/22 22:34> Skin Other: Diaphoretic. No obvious rash <Adrien Manzano MD - Last Filed: 06/26/22 22:34> Medications Administered Discontinued Medications Generic Name Dose Route Start Last Admin Trade Name Mickeyq PRN Reason Stop Dose Admin Albuterol Sulfate 2.5 mg 06/26/22 16:15 06/26/22 16:44 Albuterol Sulfate (0.083%) 2.5 Mg/3 Ml Vial.Neb INHALE 06/26/22 16:16 2.5 m g ONCE ONE Administration Albuterol Sulfate 10 mg 06/26/22 17:38 06/26/22 18:37 Albuterol Sulfate (0.083%) 2.5 Mg/3 Ml Vial.Neb INHALE 06/26/22 17:39 10 mg ONCE ONE Administration Fentanyl 50 mcg 06/26/22 17:35 06/26/22 18:12 Fentanyl Citrate/Pf 100 Mcg/2 Ml Vial IVPUSH 06/26/22 17:36 50 mcg ONCE ONE Administration Protocol Furosemide 100 mg 06/26/22 17:35 06/26/22 18:16 Furosemide 100 Mg/10 Ml Vial IVPUSH 06/26/22 17:36 100 mg ONCE ONE Administration Protocol Labetalol HCl 20 mg 06/26/22 16:25 06/26/22 16:33 Labetalol Hcl 100 Mg/20 Ml Vial IVPUSH 06/26/22 16:26 20 mg ONCE ONE Administration Labetalol HCl 20 mg 06/26/22 18:52 06/26/22 19:13 Labetalol Hcl 100 Mg/20 Ml Vial IVPUSH 06/26/22 18:53 20 mg ONCE ONE Administration Lorazepam 1 mg 06/26/22 18:52 06/26/22 19:13 Lorazepam 2 Mg/Ml Vial IVPUSH 06/26/22 18:53 1 mg ONCE ONE Administration Methylprednisolone Sodium Succinate 125 mg 06/26/22 16:15 06/26/22 16:33 Methylprednisolone Sod Succ 125 Mg/2 Ml Vial IVPUSH 06/26/22 16:16 125 mg ONCE ONE Administration Nitroglycerin 1 inch 06/26/22 17:35 06/26/22 18:20 Nitroglycerin 2 % Oint 1 Gm Packet TRANSDERMA 06/26/22 17:36 1 inch ONCE ONE Administration <Adrien Manzano MD - Last Filed: 06/26/22 22:34> Medications Administered Discontinued Medications Generic Name Dose Route Start Last Admin Trade Name Freq PRN Reason Stop Dose Admin Albuterol Sulfate 2.5 mg 06/26/22 16:15 06/26/22 16:44 Albuterol Sulfate (0.083%) 2.5 Mg/3 Ml Vial.Neb INHALE 06/26/22 16:16 2.5 mg ONCE ONE Administration Albuterol Sulfate 10 mg 06/26/22 17:38 06/26/22 18:37 Albuterol Sulfate (0.083%) 2.5 Mg/3 Ml Vial.Neb INHALE 06/26/22 17:39 10 mg ONCE ONE Administration Fentanyl 50 mcg 06/26/22 17:35 06/26/22 18:12 Fentanyl Citrate/Pf 100 Mcg/2 Ml Vial IVPUSH 06/26/22 17:36 50 mcg ONCE ONE Administration Protocol Furosemide 100 mg 06/26/22 17:35 06/26/22 18:16 Furosemide 100 Mg/10 Ml Vial IVPUSH 06/26/22 17:36 100 mg ONCE ONE Administration Protocol Labetalol HCl 20 mg 06/26/22 16:25 06/26/22 16:33 Labetalol Hcl 100 Mg/20 Ml Vial IVPUSH 06/26/22 16:26 20 mg ONCE ONE Administration Labetalol HCl 20 mg 06/26/22 18:52 06/26/22 19:13 Labetalol Hcl 100 Mg/20 Ml Vial IVPUSH 06/26/22 18:53 20 mg ONCE ONE Administration Lorazepam 1 mg 06/26/22 18:52 06/26/22 19:13 Lorazepam 2 Mg/Ml Vial IVPUSH 06/26/22 18:53 1 mg ONCE ONE Administration Methylprednisolone Sodium Succinate 125 mg 06/26/22 16:15 06/26/22 16:33 Methylprednisolone Sod Succ 125 Mg/2 Ml Vial IVPUSH 06/26/22 16:16 125 mg ONCE ONE Administration Nitroglycerin 1 inch 06/26/22 17:35 06/26/22 18:20 Nitroglycerin 2 % Oint 1 Gm Packet TRANSDERMA 06/26/22 17:36 1 inch ONCE ONE Administration <Mirna Betancourt MD - Last Filed: 06/27/22 00:04> Medical Decision Making Medical Decision Making MDM Narrative: Patient with acute onset severe respiratory distress. Likely combination of COPD exacerbation and possible fluid overload, congestive heart failure. Patient was apparently outside smoking 1st few times he called her name to coming to the emergency department. COPD likely very advanced. Treated immediately with oxygen via non-rebreather while waiting for respiratory to set up BiPAP. Will complete workup to look for signs of cardiac ischemia, congestive heart failure and fluid overload, infection such as pneumonia. She also has a knee complaints. She was able to receive her x-ray before she became short of breath. It shows severe degenerative joint disease but no evidence of acute trauma or fracture or effusion. 17:47. Patient is still dyspnea. Will order another round of medications including a 10 mg albuterol. Lasix 100 mg. Fentanyl 75 mcg. Further review of old records shows that last month she was hospitalized with a diagnosis of proctitis. She was treated with antibiotics. Colonoscopy at that time, however, showed no evidence of prostatitis. She has ventrally discharged home. When patient is stable, will do rectal exam. She is unable to cooperate at this time secondary to continue dyspnea. 18:33. Patient is still very short of breath despite BiPAP in all the above interventions. She is still pending the 10 mg albuterol treatment. I will order an ABG. Anticipate ICU admission. 19:26. Still awaiting ABG but discussed case with Nephrology who will call in the dialysis nurse. 20:39. Patient is improved after final round of treatment including Ativan. Venous blood gas shows normal pH and normal pCO2. This is reassuring. Patient is tolerating weaning from the BiPAP. She will go upstairs to Dialysis. Will reassess post treatment <Adrien Manzano MD - Last Filed: 06/26/22 22:34> Patient with acute onset severe respiratory distress. Likely combination of COPD exacerbation and possible fluid overload, congestive heart failure. Patient was apparently outside smoking 1st few times he called her name to coming to the emergency department. COPD likely very advanced. Treated immediately with oxygen via non-rebreather while waiting for respiratory to set up BiPAP. Will complete workup to look for signs of cardiac ischemia, congestive heart failure and fluid overload, infection such as pneumonia. She also has a knee complaints. She was able to receive her x-ray before she became short of breath. It shows severe degenerative joint disease but no evidence of acute trauma or fracture or effusion. 17:47. Patient is still dyspnea. Will order another round of medications including a 10 mg albuterol. Lasix 100 mg. Fentanyl 75 mcg. Further review of old records shows that last month she was hospitalized with a diagnosis of proctitis. She was treated with antibiotics. Colonoscopy at that time, however, showed no evidence of prostatitis. She has ventrally discharged home. When patient is stable, will do rectal exam. She is unable to cooperate at this time secondary to continue dyspnea. 18:33. Patient is still very short of breath despite BiPAP in all the above interventions. She is still pending the 10 mg albuterol treatment. I will order an ABG. Anticipate ICU admission. 19:26. Still awaiting ABG but discussed case with Nephrology who will call in the dialysis nurse. 20:39. Patient is improved after final round of treatment including Ativan. Venous blood gas shows normal pH and normal pCO2. This is reassuring. Patient is tolerating weaning from the BiPAP. She will go upstairs to Dialysis. Will reassess post treatment Took over patient's case at the change of shift. At approximately midnight. Patient returned from dialysis. Feels very tired. No longer short of breath. No distress. Over 4 L of fluid was taken out. Patient wants to go home does not want to stay in the hospital. A joint decision was made to discharge patient home. Most likely cause of patient's shortness of breath was fluid overload. Continue dialysis on an outpatient basis close follow-up. Patient is in stable condition. Her patient walked in the emergency department today, she is in stable condition. Did not desaturate. <Mirna Betancourt MD - Last Filed: 06/27/22 00:04> Differential Diagnosis Differential Diagnoses: The differential diagnosis associated with the presentation includes <Mirna Betancourt MD - Last Filed: 06/27/22 00:04> Congestive heart failure, COPD, end-stage renal disease <Mirna Betancourt MD - Last Filed: 06/27/22 00:04> Lab Data MDM Lab Attestation statement: I reviewed the patient's lab results. <Mirna Betancourt MD - Last Filed: 06/27/22 00:04> Result Diagrams: 06/26/22 16:24 06/26/22 16:24 <Adrien Manzano MD - Last Filed: 06/26/22 22:34> Labs: Lab Results 06/26/22 06/26/22 06/26/22 Range/Units 16:24 16:24 16:24 WBC 13.4 H (4.8-10.8) X10*3/uL RBC 3.91 L (4.20-5.50) X10*6/uL Hgb 11.8 L (12.0-16.0) g/dl Hct 34.8 L (37.0-47.0) % MCV 89.0 (80.0-98.0) fL MCH 30.2 (27.0-33.0) pg MCHC 33.9 (31.0-35.0) g/dl RDW 16.4 H (11.0-16.0) % Plt Count 190 (160-400) X10*3/uL MPV 8.9 L (9.4-12.3) fL Immature Gran % (Auto) 0.5 H (0.0-0.4) % Neut % (Auto) 70.3 (45-73) % Lymph % (Auto) 19.8 L (20-40) % [place] % (Auto) 6.4 (2-11) % Eos % (Auto) 2.6 (0-4) % Baso % (Auto) 0.4 (0-2) % Lymph # (Auto) 2.7 (1.2-4.9) X10*3/uL [place] # (Auto) 0.9 (0.1-1.2) X10*3/uL Eos # (Auto) 0.4 (0.0-0.4) X10*3/uL Baso # (Auto) 0.1 (0.0-0.2) X10*3/uL Abs Immat Gran (auto) 0.07 H (0.00-0.03) X10*3/uL Absolute Neuts (auto) 9.4 H (2.0-8.3) x10*3/uL Absolute Nucleated RBC 0.000 (0.0-0.012) X10*3/uL Nucleated RBC % (auto) 0.0 (0.0-0.2) /100WBC PT 9.8 L (10.0-13.1) SEC INR 0.9 (0.9-1.1) APTT 32.8 (26.0-36.4) SEC VBG pH (7.32-7.43) VBG pCO2 mmHg VBG pO2 mmHg VBG HCO3 (22-26) mmol/L VBG O2 Saturation % VBG Base Excess mmol/L Sodium 128 L (135-145) mmol/L Potassium 5.2 H (3.3-5.1) mmol/L Chloride 88 L (96-108) mmol/L Carbon Dioxide 24 (22-29) mmol/L Anion Gap 21 H (12-20) BUN 49 H (9-16) mg/dL Creatinine 6.54 H* (0.5-1.4) mg/dL Estim Creat Clear Calc 6.4 Estimated GFR 6 Random Glucose 174 H (60-115) mg/dL Lactic Acid (0.5-2.0) mmol/L Calcium 10.0 D (8.4-10.2) mg/dL Total Bilirubin 0.8 (0.0-1.0) mg/dL AST 25 (5-31) U/L ALT 14 (0-31) U/L Alkaline Phosphatase 287 H (39-117) U/L Troponin I High Sens (<3.5-17.0) ng/L B-Natriuretic Peptide (<100) pg/mL Total Protein 8.4 H (6.5-8.0) g/dL Albumin 4.9 (3.5-5.0) g/dL Influenza Type A (PCR) (Negative) Influenza Type B (PCR) (Negative) RSV RNA Qual (PCR) (Negative) SARS-CoV-2 RNA (RT-PCR) (Negative) 06/26/22 06/26/22 06/26/22 Range/Units 16:24 16:24 17:06 WBC (4.8-10.8) X10*3/uL RBC (4.20-5.50) X10*6/uL Hgb (12.0-16.0) g/dl Hct (37.0-47.0) % MCV (80.0-98.0) fL MCH (27.0-33.0) pg MCHC (31.0-35.0) g/dl RDW (11.0-16.0) % Plt Count (160-400) X10*3/uL MPV (9.4-12.3) fL Immature Gran % (Auto) (0.0-0.4) % Neut % (Auto) (45-73) % Lymph % (Auto) (20-40) % [place] % (Auto) (2-11) % Eos % (Auto) (0-4) % Baso % (Auto) (0-2) % Lymph # (Auto) (1.2-4.9) X10*3/uL [place] # (Auto) (0.1-1.2) X10*3/uL Eos # (Auto) (0.0-0.4) X10*3/uL Baso # (Auto) (0.0-0.2) X10*3/uL Abs Immat Gran (auto) (0.00-0.03) X10*3/uL Absolute Neuts (auto) (2.0-8.3) x10*3/uL Absolute Nucleated RBC (0.0-0.012) X10*3/uL Nucleated RBC % (auto) (0.0-0.2) /100WBC PT (10.0-13.1) SEC INR (0.9-1.1) APTT (26.0-36.4) SEC VBG pH (7.32-7.43) VBG pCO2 mmHg VBG pO2 mmHg VBG HCO3 (22-26) mmol/L VBG O2 Saturation % VBG Base Excess mmol/L Sodium (135-145) mmol/L Potassium (3.3-5.1) mmol/L Chloride (96-108) mmol/L Carbon Dioxide (22-29) mmol/L Anion Gap (12-20) BUN (9-16) mg/dL Creatinine (0.5-1.4) mg/dL Estim Creat Clear Calc Estimated GFR Random Glucose (60-115) mg/dL Lactic Acid 1.2 (0.5-2.0) mmol/L Calcium (8.4-10.2) mg/dL Total Bilirubin (0.0-1.0) mg/dL AST (5-31) U/L ALT (0-31) U/L Alkaline Phosphatase (39-117) U/L Troponin I High Sens 37.0 H (<3.5-17.0) ng/L B-Natriuretic Peptide 8110 H (<100) pg/mL Total Protein (6.5-8.0) g/dL Albumin (3.5-5.0) g/dL Influenza Type A (PCR) (Negative) Influenza Type B (PCR) (Negative) RSV RNA Qual (PCR) (Negative) SARS-CoV-2 RNA (RT-PCR) (Negative) 06/26/22 06/26/22 Range/Units 17:06 20:25 WBC (4.8-10.8) X10*3/uL RBC (4.20-5.50) X10*6/uL Hgb (12.0-16.0) g/dl Hct (37.0-47.0) % MCV (80.0-98.0) fL MCH (27.0-33.0) pg MCHC (31.0-35.0) g/dl RDW (11.0-16.0) % Plt Count (160-400) X10*3/uL MPV (9.4-12.3) fL Immature Gran % (Auto) (0.0-0.4) % Neut % (Auto) (45-73) % Lymph % (Auto) (20-40) % [place] % (Auto) (2-11) % Eos % (Auto) (0-4) % Baso % (Auto) (0-2) % Lymph # (Auto) (1.2-4.9) X10*3/uL [place] # (Auto) (0.1-1.2) X10*3/uL Eos # (Auto) (0.0-0.4) X10*3/uL Baso # (Auto) (0.0-0.2) X10*3/uL Abs Immat Gran (auto) (0.00-0.03) X10*3/uL Absolute Neuts (auto) (2.0-8.3) x10*3/uL Absolute Nucleated RBC (0.0-0.012) X10*3/uL Nucleated RBC % (auto) (0.0-0.2) /100WBC PT (10.0-13.1) SEC INR (0.9-1.1) APTT (26.0-36.4) SEC VBG pH 7.42 (7.32-7.43) VBG pCO2 42 mmHg VBG pO2 78 mmHg VBG HCO3 27 H (22-26) mmol/L VBG O2 Saturation 95.0 % VBG Base Excess 3.1 mmol/L Sodium (135-145) mmol/L Potassium (3.3-5.1) mmol/L Chloride (96-108) mmol/L Carbon Dioxide (22-29) mmol/L Anion Gap (12-20) BUN (9-16) mg/dL Creatinine (0.5-1.4) mg/dL Estim Creat Clear Calc Estimated GFR Random Glucose (60-115) mg/dL Lactic Acid (0.5-2.0) mmol/L Calcium (8.4-10.2) mg/dL Total Bilirubin (0.0-1.0) mg/dL AST (5-31) U/L ALT (0-31) U/L Alkaline Phosphatase (39-117) U/L Troponin I High Sens (<3.5-17.0) ng/L B-Natriuretic Peptide (<100) pg/mL Total Protein (6.5-8.0) g/dL Albumin (3.5-5.0) g/dL Influenza Type A (PCR) NEGATIVE (Negative) Influenza Type B (PCR) NEGATIVE (Negative) RSV RNA Qual (PCR) NEGATIVE (Negative) SARS-CoV-2 RNA (RT-PCR) NEGATIVE (Negative) <Adrien Manzano MD - Last Filed: 06/26/22 22:34> Lab Results 06/26/22 06/26/22 06/26/22 Range/Units 16:24 16:24 16:24 WBC 13.4 H (4.8-10.8) X10*3/uL RBC 3.91 L (4.20-5.50) X10*6/uL Hgb 11.8 L (12.0-16.0) g/dl Hct 34.8 L (37.0-47.0) % MCV 89.0 (80.0-98.0) fL MCH 30.2 (27.0-33.0) pg MCHC 33.9 (31.0-35.0) g/dl RDW 16.4 H (11.0-16.0) % Plt Count 190 (160-400) X10*3/uL MPV 8.9 L (9.4-12.3) fL Immature Gran % (Auto) 0.5 H (0.0-0.4) % Neut % (Auto) 70.3 (45-73) % Lymph % (Auto) 19.8 L (20-40) % [place] % (Auto) 6.4 (2-11) % Eos % (Auto) 2.6 (0-4) % Baso % (Auto) 0.4 (0-2) % Lymph # (Auto) 2.7 (1.2-4.9) X10*3/uL [place] # (Auto) 0.9 (0.1-1.2) X10*3/uL Eos # (Auto) 0.4 (0.0-0.4) X10*3/uL Baso # (Auto) 0.1 (0.0-0.2) X10*3/uL Abs Immat Gran (auto) 0.07 H (0.00-0.03) X10*3/uL Absolute Neuts (auto) 9.4 H (2.0-8.3) x10*3/uL Absolute Nucleated RBC 0.000 (0.0-0.012) X10*3/uL Nucleated RBC % (auto) 0.0 (0.0-0.2) /100WBC PT 9.8 L (10.0-13.1) SEC INR 0.9 (0.9-1.1) APTT 32.8 (26.0-36.4) SEC VBG pH (7.32-7.43) VBG pCO2 mmHg VBG pO2 mmHg VBG HCO3 (22-26) mmol/L VBG O2 Saturation % VBG Base Excess mmol/L Sodium 128 L (135-145) mmol/L Potassium 5.2 H (3.3-5.1) mmol/L Chloride 88 L (96-108) mmol/L Carbon Dioxide 24 (22-29) mmol/L Anion Gap 21 H (12-20) BUN 49 H (9-16) mg/dL Creatinine 6.54 H* (0.5-1.4) mg/dL Estim Creat Clear Calc 6.4 Estimated GFR 6 Random Glucose 174 H (60-115) mg/dL Lactic Acid (0.5-2.0) mmol/L Calcium 10.0 D (8.4-10.2) mg/dL Total Bilirubin 0.8 (0.0-1.0) mg/dL AST 25 (5-31) U/L ALT 14 (0-31) U/L Alkaline Phosphatase 287 H (39-117) U/L Troponin I High Sens (<3.5-17.0) ng/L B-Natriuretic Peptide (<100) pg/mL Total Protein 8.4 H (6.5-8.0) g/dL Albumin 4.9 (3.5-5.0) g/dL Influenza Type A (PCR) (Negative) Influenza Type B (PCR) (Negative) RSV RNA Qual (PCR) (Negative) SARS-CoV-2 RNA (RT-PCR) (Negative) 06/26/22 06/26/22 06/26/22 Range/Units 16:24 16:24 17:06 WBC (4.8-10.8) X10*3/uL RBC (4.20-5.50) X10*6/uL Hgb (12.0-16.0) g/dl Hct (37.0-47.0) % MCV (80.0-98.0) fL MCH (27.0-33.0) pg MCHC (31.0-35.0) g/dl RDW (11.0-16.0) % Plt Count (160-400) X10*3/uL MPV (9.4-12.3) fL Immature Gran % (Auto) (0.0-0.4) % Neut % (Auto) (45-73) % Lymph % (Auto) (20-40) % [place] % (Auto) (2-11) % Eos % (Auto) (0-4) % Baso % (Auto) (0-2) % Lymph # (Auto) (1.2-4.9) X10*3/uL [place] # (Auto) (0.1-1.2) X10*3/uL Eos # (Auto) (0.0-0.4) X10*3/uL Baso # (Auto) (0.0-0.2) X10*3/uL Abs Immat Gran (auto) (0.00-0.03) X10*3/uL Absolute Neuts (auto) (2.0-8.3) x10*3/uL Absolute Nucleated RBC (0.0-0.012) X10*3/uL Nucleated RBC % (auto) (0.0-0.2) /100WBC PT (10.0-13.1) SEC INR (0.9-1.1) APTT (26.0-36.4) SEC VBG pH (7.32-7.43) VBG pCO2 mmHg VBG pO2 mmHg VBG HCO3 (22-26) mmol/L VBG O2 Saturation % VBG Base Excess mmol/L Sodium (135-145) mmol/L Potassium (3.3-5.1) mmol/L Chloride (96-108) mmol/L Carbon Dioxide (22-29) mmol/L Anion Gap (12-20) BUN (9-16) mg/dL Creatinine (0.5-1.4) mg/dL Estim Creat Clear Calc Estimated GFR Random Glucose (60-115) mg/dL Lactic Acid 1.2 (0.5-2.0) mmol/L Calcium (8.4-10.2) mg/dL Total Bilirubin (0.0-1.0) mg/dL AST (5-31) U/L ALT (0-31) U/L Alkaline Phosphatase (39-117) U/L Troponin I High Sens 37.0 H (<3.5-17.0) ng/L B-Natriuretic Peptide 8110 H (<100) pg/mL Total Protein (6.5-8.0) g/dL Albumin (3.5-5.0) g/dL Influenza Type A (PCR) (Negative) Influenza Type B (PCR) (Negative) RSV RNA Qual (PCR) (Negative) SARS-CoV-2 RNA (RT-PCR) (Negative) 06/26/22 06/26/22 Range/Units 17:06 20:25 WBC (4.8-10.8) X10*3/uL RBC (4.20-5.50) X10*6/uL Hgb (12.0-16.0) g/dl Hct (37.0-47.0) % MCV (80.0-98.0) fL MCH (27.0-33.0) pg MCHC (31.0-35.0) g/dl RDW (11.0-16.0) % Plt Count (160-400) X10*3/uL MPV (9.4-12.3) fL Immature Gran % (Auto) (0.0-0.4) % Neut % (Auto) (45-73) % Lymph % (Auto) (20-40) % [place] % (Auto) (2-11) % Eos % (Auto) (0-4) % Baso % (Auto) (0-2) % Lymph # (Auto) (1.2-4.9) X10*3/uL [place] # (Auto) (0.1-1.2) X10*3/uL Eos # (Auto) (0.0-0.4) X10*3/uL Baso # (Auto) (0.0-0.2) X10*3/uL Abs Immat Gran (auto) (0.00-0.03) X10*3/uL Absolute Neuts (auto) (2.0-8.3) x10*3/uL Absolute Nucleated RBC (0.0-0.012) X10*3/uL Nucleated RBC % (auto) (0.0-0.2) /100WBC PT (10.0-13.1) SEC INR (0.9-1.1) APTT (26.0-36.4) SEC VBG pH 7.42 (7.32-7.43) VBG pCO2 42 mmHg VBG pO2 78 mmHg VBG HCO3 27 H (22-26) mmol/L VBG O2 Saturation 95.0 % VBG Base Excess 3.1 mmol/L Sodium (135-145) mmol/L Potassium (3.3-5.1) mmol/L Chloride (96-108) mmol/L Carbon Dioxide (22-29) mmol/L Anion Gap (12-20) BUN (9-16) mg/dL Creatinine (0.5-1.4) mg/dL Estim Creat Clear Calc Estimated GFR Random Glucose (60-115) mg/dL Lactic Acid (0.5-2.0) mmol/L Calcium (8.4-10.2) mg/dL Total Bilirubin (0.0-1.0) mg/dL AST (5-31) U/L ALT (0-31) U/L Alkaline Phosphatase (39-117) U/L Troponin I High Sens (<3.5-17.0) ng/L B-Natriuretic Peptide (<100) pg/mL Total Protein (6.5-8.0) g/dL Albumin (3.5-5.0) g/dL Influenza Type A (PCR) NEGATIVE (Negative) Influenza Type B (PCR) NEGATIVE (Negative) RSV RNA Qual (PCR) NEGATIVE (Negative) SARS-CoV-2 RNA (RT-PCR) NEGATIVE (Negative) <Mirna Betancourt MD - Last Filed: 06/27/22 00:04> Radiology Impression Discussion of test interpretation with radiology: I have reviewed the radiologist's reading. <Mirna Betancourt MD - Last Filed: 06/27/22 00:04> Chronic Conditions Congestive heart failure end-stage renal disease <Mirna Betancourt MD - Last Filed: 06/27/22 00:04> Critical Care Time Critical Care Time Critical Care Time: Yes <Adrien Manzano MD - Last Filed: 06/26/22 22:34> Total Critical Care Time: 120 <Adrien Manzano MD - Last Filed: 06/26/22 22:34> Attestation: Severe respiratory distress with multiple rechecks. Requiring BiPAP and emergent dialysis. Critical care time outside of separately billable procedures <Adrien Manzano MD - Last Filed: 06/26/22 22:34> Discharge Plan Discharge Clinical Impression: Fluid overload <Adrien Manzano MD - Last Filed: 06/26/22 22:34> Patient Disposition: Home, Self-Care <Adrien Manzano MD - Last Filed: 06/26/22 22:34> Instructions: Pulmonary Edema (ED) <Adrien Manzano MD - Last Filed: 06/26/22 22:34> Prescriptions: No Action buprenorphine-naloxone [Suboxone] 8-2 mg film 2 strip sublingual DAILY diltiazem HCl 180 mg capsule,extended release 24hr 360 mg PO DAILY acetaminophen 500 mg Tablet 500 mg PO Q8H PRN (Reason: Pain, Mild) clonidine HCl 0.2 mg tablet 0.2 mg PO BID insulin aspart U-100 [Novolog PenFill U-100 Insulin] 100 unit/mL Cartridge 1 sliding scale dose SUBCUT USEASDIRECTD Protocol: Insulin Correction Scale Less than or equal to 110 ---- Give (units): 0 111 to 150 Give (units): 0 151 to 200 Give (units): 4 201 to 250 Give (units): 6 251 to 300 Give (units): 8 301 to 350 Give (units): 10 Greater than 350 Give (units): 12 Call MD if Blood Glucose > : 350 docusate sodium [Colace] 100 mg capsule 100 mg PO BID PRN (Reason: Constipation) Qty: 30 0RF amlodipine 10 mg Tablet 10 mg PO BEDTIME Qty: 30 0RF Protocol: Hold for SBP< HOLD for SBP < : 90 Rx Instructions: replaces prior dose of 5 mg daily bumetanide 2 mg Tablet 2 mg PO DAILY pantoprazole 40 mg Tablet,Delayed Release (Dr/Ec) 40 mg PO DAILY melatonin 5 mg Tablet 5 mg PO BEDTIME PRN (Reason: Sleep) [facility] CONSULTANT-[facility] Rx 1-60-300 mg-mg-mcg Tablet 1 tab PO DAILY fluticasone propionate [Flovent HFA] 110 mcg/actuation Hfa Aerosol Inhaler 1 puff INHALATION BID sennosides [senna] 8.6 mg tablet 1 - 2 tab PO BEDTIME PRN (Reason: constipation) insulin glargine [Lantus U-100 Insulin] 100 unit/mL solution 7 unit subcut DAILY isosorbide mononitrate 30 mg Tablet Extended Release 24 Hr 30 mg PO DAILY Qty: 30 0RF Protocol: Hold for SBP< HOLD for SBP < : 90 aspirin 81 mg tablet,delayed release (DR/EC) 1 tab PO DAILY albuterol sulfate [Ventolin HFA] 90 mcg/actuation HFA aerosol inhaler 2 puff INHALATION Q4H PRN (Reason: wheezing) diclofenac sodium 1 % gel 2 g topical BID ondansetron 4 mg tablet,disintegrating 4 mg PO BID PRN (Reason: nausea and vomiting) carvedilol 6.25 mg tablet 1 tab PO BID Spiriva with HandiHaler 18 mcg capsule, w/inhalation device 1 cap inhalation DAILY hydralazine 50 mg tablet 2 tab PO TID hydrocortisone 2.5 % cream with perineal applicator 1 appl FL BID gabapentin 300 mg capsule 1 cap PO DAILY diphenhydramine HCl [Benadryl] 25 mg capsule 25 mg PO DAILY PRN (Reason: allergy symptoms) Qty: 30 0RF polyethylene glycol 3350 [Miralax] 17 gram/dose powder 17 g PO DAILY Qty: 238 0RF albuterol sulfate 2.5 mg /3 mL (0.083 %) solution for nebulization 1 amp inhalation TID PRN (Reason: Shortness Of Breath) acetaminophen 500 mg tablet 500 mg PO Q6H PRN (Reason: fever or pain) Qty: 20 0RF <Adrien Manzano MD - Last Filed: 06/26/22 22:34> Referrals: Physician,Unknown J [Primary Care Provider] - (Please keep to your regular dialysis schedule.) <Adrien Manzano MD - Last Filed: 06/26/22 22:34> Print Language: Maori <Adrien Manzano MD - Last Filed: 06/26/22 22:34>
[2022-06-26 16:31] LABS: MANUAL DIFF FLAG NO
[2022-06-26 16:33] LABS: Basophils Absolute Auto 0.1 X10*3/uL (0.0-0.2); Basophils Percent Auto 0.4 % (0-2); Eosinophils Absolute Auto 0.4 X10*3/uL (0.0-0.4); Eosinophils Percent Auto 2.6 % (0-4); Hematocrit 34.8 % (37.0-47.0); Hemoglobin 11.8 g/dl (12.0-16.0); Imm Gran Abs Auto 0.07 X10*3/uL (0.00-0.03); Imm Gran Pct Auto 0.5 % (0.0-0.4); Lymphocytes Absolute Auto 2.7 X10*3/uL (1.2-4.9); Lymphocytes Percent Auto 19.8 % (20-40); Mean Corpuscular HGB Conc 33.9 g/dl (31.0-35.0); Mean Corpuscular Hemoglobin 30.2 pg (27.0-33.0); Mean Platelet Volume 8.9 fL (9.4-12.3); Monocytes Absolute Auto 0.9 X10*3/uL (0.1-1.2); Monocytes Percent Auto 6.4 % (2-11); Neutrophils Absolute Auto 9.4 x10*3/uL (2.0-8.3); Neutrophils Percent Auto 70.3 % (45-73); Platelet Count 190 X10*3/uL (160-400); Red Blood Count 3.91 X10*6/uL (4.20-5.50); Red Cell Distribution Width 16.4 % (11.0-16.0); White Blood Count 13.4 X10*3/uL (4.8-10.8)
[2022-06-26] MEDS: methylPREDNISolone Sod Succ 125 MG/2 ML VIAL IVPUSH (16:33)
[2022-06-26] MEDS: Labetalol HCL 100 MG/20 ML VIAL 20 MG IVPUSH ×2 (16:33→19:13)
--- NOTE | 2022-06-26 16:34 | MHC.EDTECH ---
EKG not able to be obtained in triage due to pt not answering when called. EKG attempted in pt room, unable to obtain due to pts work of breathing, artifact making EKG unreadable. Will attempt again after respiratory has seen the pt.
[2022-06-26 16:43] LABS: INTERNATIONAL NORM RATIO 0.9 (0.9-1.1); Prothrombin Time 9.8 SEC (10.0-13.1)
[2022-06-26] MEDS: Albuterol Sulfate (0.083%) 2.5 MG/3 ML VIAL.NEB INHALE (16:44)
[2022-06-26 16:46] LABS: Partial Thromboplastin Time 32.8 SEC (26.0-36.4)
[2022-06-26 16:56] LABS: Alanine Aminotransferase 14 U/L (0-31); Albumin Level 4.9 g/dL (3.5-5.0); Alkaline Phosphatase 287 U/L (39-117); Anion Gap 21 (12-20); Aspartate Amino Transferase 25 U/L (5-31); Bilirubin Total 0.8 mg/dL (0.0-1.0); Blood Urea Nitrogen 49 mg/dL (9-16); Carbon Dioxide 24 mmol/L (22-29); Chloride 88 mmol/L (96-108); Creatinine Clr Calc Pharmacy 6.4; Estimated Glomerular Filt Rate 6; Glucose Random 174 mg/dL (60-115); Potassium 5.2 mmol/L (3.3-5.1); Sodium 128 mmol/L (135-145); Total Protein 8.4 g/dL (6.5-8.0)
[2022-06-26 17:21] LABS: B Type Natriuretic Peptide 8110 pg/mL (<100)
[2022-06-26 17:29] LABS: Lactic Acid 1.2 mmol/L (0.5-2.0)
[2022-06-26 17:53] LABS: Influenza A PCR NEGATIVE (Negative); Influenza B PCR NEGATIVE (Negative); Resp Syncy Virus RNA Qual PCR NEGATIVE (Negative); SARS COV2 PCR INHOUSE NEGATIVE (Negative)
[2022-06-26] MEDS: fentaNYL citrate/PF 100 MCG/2 ML VIAL 50 MCG IVPUSH (18:12)
[2022-06-26] MEDS: Furosemide 100 MG/10 ML VIAL IVPUSH (18:16)
[2022-06-26] MEDS: Nitroglycerin 2 % Oint 1 GM Packet 1 INCH TRANSDERMA (18:20)
--- NOTE | 2022-06-26 18:29 | PC.NURSE ---
pt alert, cont'd dyspnea - tripod posture, on bipap, hypertensive, medicated per provider order. pt pending breathing treatment.
[2022-06-26] MEDS: Albuterol Sulfate (0.083%) 2.5 MG/3 ML VIAL.NEB 10 MG INHALE (18:37)
[2022-06-26] MEDS: LORazepam 2 MG/ML VIAL 1 MG IVPUSH (19:13)
--- NOTE | 2022-06-26 19:44 | PC.RT ---
In report, previous RT attempted ABG numerous times with no success.Communicated this with
[2022-06-26 20:30] LABS: Venous Blood Gas Refer to POC result
[2022-06-26 20:31] LABS: VBG Base Excess 3.1 mmol/L; VBG HCO3 27 mmol/L (22-26); VBG pCO2 42 mmHg; VBG pH 7.42 (7.32-7.43); VBG pO2 78 mmHg
--- NOTE | 2022-06-26 20:44 | PC.NURSE ---
pt trialed off dialysis, maintaining O2 94-96 on 6L, hypertensive, other vss, pt transported up to dialysis.
[2022-06-27 00:16] VITALS: BP 188/76; PULSE 89; RESP 16; TEMP 36.2; O2SAT 96
--- NOTE | 2022-06-27 01:33 | PC.NURSE ---
Dr. Betancourt is aware of patient's BP 188/89, P 68, O2 Sat 97% RA at rest. Patient prepared for discharge home, patient and her daughter is in agreement with plan for discharge home, patient signed discharge notice. IV line removed. Patient denies pain, reports no concerns at present.
== END 2022-06-27 01:37 | disposition home or self-care (01) ==
PROVIDERS: Physician Assistant; Emergency Provider Emergency Medicine
DX: E87.70 Fluid overload, unspecified (principal); K59.00 Constipation, unspecified; M17.11 Unilateral primary osteoarthritis, right knee; M25.561 Pain in right knee; R06.02 Shortness of breath; Z20.822 Contact with and (suspected) exposure to COVID-19; Z20.828 Contact with and (suspected) exposure to other viral communicable diseases; E11.22 Type 2 diabetes mellitus with diabetic chronic kidney disease; I13.2 Hypertensive heart and chronic kidney disease with heart failure and with stage 5 chronic kidney disease, or end stage renal disease; I50.9 Heart failure, unspecified; N18.6 End stage renal disease; Z99.2 Dependence on renal dialysis; Z91.15 Patient's noncompliance with renal dialysis; F11.20 Opioid dependence, uncomplicated; F17.210 Nicotine dependence, cigarettes, uncomplicated; Z79.4 Long term (current) use of insulin; Z79.899 Other long term (current) drug therapy; Z79.82 Long term (current) use of aspirin
CPT/HCPCS: 0241U; 36415; 71045; 73564; 80053; 82803; 83605; 83880; 84484; 85025; 85610; 85730; 87040; 90999; 93005; 94640; 96374; 96375; 96376; 99285; J1940; J2060; J2930; J3010

== ENCOUNTER 2022-06-30 12:19 | Emergency (ER) | payer OTHER, SELFPAY ==
[2022-06-30 12:26] VITALS: BP 186/78; PULSE 80; O2SAT 96
[2022-06-30 12:30] VITALS: BP 188/72; PULSE 85; RESP 16; TEMP 36.8; O2SAT 98; BMI 26.4
[2022-06-30 12:57] VITALS: BP 182/75; PULSE 81; RESP 16; TEMP 37; O2SAT 94
--- NOTE | 2022-06-30 15:12 | ED.FEMALEGU ---
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 Otherwise she denies any nausea, vomiting, dizziness, shortness of breath, chest pain and states that her next scheduled dialysis is Sunday. There were reports that patient was concerned regarding no urination. Related Data Home Medications Medication Instructions Recorded Confirmed buprenorphine 8 mg-naloxone 2 mg 2 strip sublingual DAILY 10/22/20 05/24/22 sublingual film (Suboxone) diltiazem HCl 180 mg 360 mg PO DAILY 10/22/20 05/24/22 capsule,extended release 24 hr bumetanide 2 mg tablet 2 mg PO DAILY 04/15/21 05/24/22 fluticasone propionate 110 1 puff inhalation BID 04/15/21 05/24/22 mcg/actuation HFA aerosol inhaler (Flovent HFA) melatonin 5 mg tablet 5 mg PO BEDTIME PRN Sleep 04/15/21 05/24/22 pantoprazole 40 mg tablet,delayed 40 mg PO DAILY 04/15/21 05/24/22 release vitamin B comp no.3-folic acid 1 1 tab PO DAILY 04/15/21 05/24/22 mg-vit C 60 mg-biotin 300 mcg tablet (RESEARCH PHYSIOLOGIST-[facility] Rx) sennosides 8.6 mg tablet (senna) 1 - 2 tab PO BEDTIME PRN 05/11/21 05/24/22 constipation acetaminophen 500 mg tablet 500 mg PO Q8H PRN Pain, Mild 06/10/21 05/24/22 clonidine HCl 0.2 mg tablet 0.2 mg PO BID 07/27/21 05/24/22 insulin aspart U-100 100 unit/mL 1 sliding scale dose subcut 07/27/21 05/24/22 subcutaneous cartridge (Novolog USEASDIRECTD PenFill U-100 Insulin aspart) insulin glargine 100 unit/mL 7 unit subcut DAILY 09/18/21 05/24/22 subcutaneous solution (Lantus U-100 Insulin) aspirin 81 mg tablet,delayed 1 tab PO DAILY 10/11/21 05/24/22 release albuterol sulfate 90 mcg/actuation 2 puff inhalation Q4H PRN wheezing 01/31/22 05/24/22 aerosol inhaler (Ventolin HFA) diclofenac sodium 1 % topical gel 2 g topical BID 03/09/22 05/24/22 ondansetron 4 mg disintegrating 4 mg PO BID PRN nausea and vomiting 03/09/22 05/24/22 tablet carvedilol 6.25 mg tablet 1 tab PO BID 04/24/22 05/24/22 gabapentin 300 mg capsule 1 cap PO DAILY 04/24/22 05/24/22 hydralazine 50 mg tablet 2 tab PO TID 04/24/22 05/24/22 hydrocortisone 2.5 % topical cream 1 appl DC BID 04/24/22 05/24/22 with perineal applicator tiotropium bromide 18 mcg capsule 1 cap inhalation DAILY 04/24/22 05/24/22 with inhalation device (Spiriva with HandiHaler) albuterol sulfate 2.5 mg/3 mL 1 amp inhalation TID PRN Shortness 05/08/22 05/24/22 (0.083 %) solution for nebulization Of Breath Previous Rx's Medication Instructions Recorded amlodipine 10 mg tablet 10 mg PO BEDTIME #30 tabs 03/07/21 isosorbide mononitrate 30 mg 30 mg PO DAILY #30 tabs 09/20/21 tablet,extended release 24 hr docusate sodium 100 mg capsule 100 mg PO BID PRN Constipation #30 12/04/21 (Colace) caps diphenhydramine HCl 25 mg capsule 25 mg PO DAILY PRN allergy 04/30/22 (Benadryl) symptoms #30 caps polyethylene glycol 3350 17 17 g PO DAILY #238 grams 04/30/22 gram/dose oral powder (Miralax) acetaminophen 500 mg tablet 500 mg PO Q6H PRN fever or pain 05/29/22 #20 tabs Allergies Allergy/AdvReac Type Severity Reaction Status Date / Time No Known Allergies Allergy Mild NOT Verified 04/14/22 01:40 APPLICABLE Review of Systems Review of Systems: Pertinent positives and negatives as stated in [facility] Past Medical History Source: nursing notes reviewed Medical History Acute exacerbation of chronic obstructive pulmonary disease (COPD) Acute GI bleeding Anasarca Anemia Anemia in chronic kidney disease Ascites Asthma with COPD with exacerbation Constipation COVID COVID-19 virus infection Diabetes mellitus End stage renal disease on dialysis ESRD (end stage renal disease) ESRD (end stage renal disease) Essential hypertension Heart failure with preserved ejection fraction Hypertension Hypertrophic cardiomyopathy Ischemic colitis Opioid withdrawal Pulmonary congestion Surgical History No pertinent past surgical history Family History Family History Other Hypertension Social History Social History Household Members: None Housing: Apartment Do you presently have visiting nurse or other home services: Yes Unable to assess alcohol history related to: Unknown Alcohol intake: former Patient Tobacco Use Status: Current everyday Tobacco user Tobacco use type: Cigarette Cigarette Packs Per Day: 1 Cigarettes Per Day: 4 Years Smoked: 18 Smoked in Last 30 Days: No e-Cigarette/Vaping Use: Never Used Second Hand Smoke Exposure: No Substance Use Type: Heroin Advance Directives: Yes Advance Directives on File: Yes Advance Directives Date on File: 04/17/22 Patient : No service: No Current occupational status: unemployed and disabled Physical Exam Vital Signs: Vital Signs: Last Vital Signs Temp 98.6 F 06/30/22 12:57 Pulse 81 06/30/22 12:57 Resp 16 06/30/22 12:57 BP 182/75 H 06/30/22 12:57 Pulse Ox 94 06/30/22 12:57 O2 Del Method 06/30/22 12:57 BMI result Body Mass Index 26.4 VITAL SIGNS: Reviewed. GENERAL: Well developed, well nourished, in no acute distress. HEAD: Normocephalic/atraumatic EYES: PERRLA, EOMI LUNGS: Normal breath sounds. No adventitious sounds or accessory muscle use. SpO2<94> CARDIOVASCULAR: Regular rate and rhythm without noted murmurs, no JVD or lower extremity edema. ABDOMEN: Soft, non-tender, non-distended with bowel sounds. TERRI: Not inflamed external hemorrhoids, soft brown stool without gross bleeding on the finger. SKIN: Inspection of the skin reveals no rashes NEUROLOGIC: Alert and oriented x 4. Strength and sensation to light touch were grossly intact x 4. Medical Decision Making Medical Decision Making [facility] Narrative: 67-year-old female with bladder scan that demonstrates 34 cc of urine, no evidence of clinical signs of infection with dysuria or elevated temperature. Patient has no other constitutional complaints and on evaluation of the external anus there is evidence of noninflamed hemorrhoids and will make recommendations for [id number] preparation H. Differential Diagnosis Differential Diagnoses: The differential diagnosis associated with the presentation includes Please see the discussion above Lab Data [facility] Lab Attestation statement: I reviewed the patient's lab results. Please see the discussion above External Record Review External record reviewed: Outpatient record and Prior outpatient labs Chronic Conditions Patient?s care impacted by: Diabetes and Other End-stage renal disease Critical Care Time Critical Care Time Critical Care Time: Yes Total Critical Care Time: 30 Attestation: I personally attest to this time spent taking care of the patient. Discharge Plan Discharge Clinical Impression: External hemorrhoid Patient Disposition: Home, Self-Care Instructions: Hemorrhoids (ED) Additional Instructions: 1. Reanude todos los medicamentos caseros seg?n lo prescrito. 2. Utilice la preparaci?n H de venta sarath para el dolor hemorroidal. 3. Jumana un seguimiento con el proveedor de atenci?n primaria. Regrese a la sukhi de emergencias si los s?ntomas empeoran. 1. Please resume all home medications as prescribed. 2. Please use [id number] preparation H for hemorrhoidal pain. 3. Please follow-up with primary care provider. Return to the ER for any worsening symptoms. Prescriptions: No Action buprenorphine-naloxone [Suboxone] 8-2 mg film 2 strip sublingual DAILY diltiazem HCl 180 mg capsule,extended release 24hr 360 mg PO DAILY acetaminophen 500 mg Tablet 500 mg PO Q8H PRN (Reason: Pain, Mild) clonidine HCl 0.2 mg tablet 0.2 mg PO BID insulin aspart U-100 [Novolog PenFill U-100 Insulin] 100 unit/mL Cartridge 1 sliding scale dose SUBCUT USEASDIRECTD Protocol: Insulin Correction Scale Less than or equal to 110 ---- Give (units): 0 111 to 150 Give (units): 0 151 to 200 Give (units): 4 201 to 250 Give (units): 6 251 to 300 Give (units): 8 301 to 350 Give (units): 10 Greater than 350 Give (units): 12 Call MD if Blood Glucose > : 350 docusate sodium [Colace] 100 mg capsule 100 mg PO BID PRN (Reason: Constipation) Qty: 30 0RF amlodipine 10 mg Tablet 10 mg PO BEDTIME Qty: 30 0RF Protocol: Hold for SBP< HOLD for SBP < : 90 Rx Instructions: replaces prior dose of 5 mg daily bumetanide 2 mg Tablet 2 mg PO DAILY pantoprazole 40 mg Tablet,Delayed Release (Dr/Ec) 40 mg PO DAILY melatonin 5 mg Tablet 5 mg PO BEDTIME PRN (Reason: Sleep) [facility]EARCH PHYSIOLOGIST-[facility] Rx 1-60-300 mg-mg-mcg Tablet 1 tab PO DAILY fluticasone propionate [Flovent HFA] 110 mcg/actuation Hfa Aerosol Inhaler 1 puff INHALATION BID sennosides [senna] 8.6 mg tablet 1 - 2 tab PO BEDTIME PRN (Reason: constipation) insulin glargine [Lantus U-100 Insulin] 100 unit/mL solution 7 unit subcut DAILY isosorbide mononitrate 30 mg Tablet Extended Release 24 Hr 30 mg PO DAILY Qty: 30 0RF Protocol: Hold for SBP< HOLD for SBP < : 90 aspirin 81 mg tablet,delayed release (DR/EC) 1 tab PO DAILY albuterol sulfate [Ventolin HFA] 90 mcg/actuation HFA aerosol inhaler 2 puff INHALATION Q4H PRN (Reason: wheezing) diclofenac sodium 1 % gel 2 g topical BID ondansetron 4 mg tablet,disintegrating 4 mg PO BID PRN (Reason: nausea and vomiting) carvedilol 6.25 mg tablet 1 tab PO BID Spiriva with HandiHaler 18 mcg capsule, w/inhalation device 1 cap inhalation DAILY hydralazine 50 mg tablet 2 tab PO TID hydrocortisone 2.5 % cream with perineal applicator 1 appl DC BID gabapentin 300 mg capsule 1 cap PO DAILY diphenhydramine HCl [Benadryl] 25 mg capsule 25 mg PO DAILY PRN (Reason: allergy symptoms) Qty: 30 0RF polyethylene glycol 3350 [Miralax] 17 gram/dose powder 17 g PO DAILY Qty: 238 0RF albuterol sulfate 2.5 mg /3 mL (0.083 %) solution for nebulization 1 amp inhalation TID PRN (Reason: Shortness Of Breath) acetaminophen 500 mg tablet 500 mg PO Q6H PRN (Reason: fever or pain) Qty: 20 0RF Print Language: Cuban
== END 2022-06-30 15:29 | disposition home or self-care (01) ==
PROVIDERS: Emergency Provider Student in an Organized Health Care Education/Training Program
DX: K64.4 Residual hemorrhoidal skin tags (principal); R33.9 Retention of urine, unspecified; F17.210 Nicotine dependence, cigarettes, uncomplicated; Z71.6 Tobacco abuse counseling; Z79.899 Other long term (current) drug therapy
CPT/HCPCS: 51798; 99283; 99284

== ENCOUNTER 2022-07-03 10:45 | Emergency (ER) | payer OTHER, SELFPAY ==
--- NOTE | ~2022-07-03 | XR_ITS ---
EXAMINATION: XR CHEST CLINICAL INFORMATION: Dyspnea COMPARISON: Previous chest x-ray most recent June 2022 TECHNIQUE: Frontal view of the chest was obtained. FINDINGS: The cardiac silhouette is slightly enlarged but stable. Hilar and mediastinal contours are unremarkable. The lungs are clear. No pleural effusion or pneumothorax. Degenerative changes of the spine. Right jugular permacath with tip projecting over the cavoatrial junction. XR/XR chest 1V IMPRESSION: Stable enlargement of the cardiac silhouette.
--- NOTE | ~2022-07-03 | CT_ITS ---
EXAMINATION: CT ABDOMEN AND PELVIS WITHOUT CONTRAST CLINICAL INFORMATION: Abdominal pain. Abdominal distention. COMPARISON: CT abdomen pelvis 05/24/2022 TECHNIQUE: Multidetector volumetric imaging was performed from the superior aspect of the liver through the pubic symphysis. Sagittal and coronal reformatted images were obtained on the technologist's workstation. This CT examination was performed using dose optimization techniques as appropriate, variously including the following: *Automated exposure control *Adjustment of mA and/or kV according to patient size (this includes techniques or standardized protocols for targeted exams where dose is matched to indication/reason for exam; i.e. extremities or head) *Use of iterative reconstruction technique DLP: 367 mGy-cm FINDINGS: LUNG BASES: Lung bases normally aerated. No pleural effusion. Heart size is enlarged. LIVER, GALLBLADDER, AND BILIARY TREE: The liver is normal in size, shape, and attenuation. No focal hepatic lesion or biliary ductal dilatation is present. Status post cholecystectomy PANCREAS: Pancreas is atrophic. No inflammation or mass. SPLEEN: Unremarkable. ADRENAL GLANDS: Nodular thickening of the left adrenal gland. No distinct mass. The right adrenal gland is normal. KIDNEYS AND URETERS: The kidneys are normal in size, shape, and attenuation. No hydronephrosis, hydroureter, or calculi seen. No perinephric stranding. Stable renal cyst upper pole of the left kidney measuring 3.5 cm. No follow-up imaging is recommended for simple renal cyst. BLADDER: Unremarkable. GASTROINTESTINAL TRACT: No acute abnormality. There is no bowel wall thickening /edema. There is no bowel obstruction. There is a large volume of stool in the colon. Stool present from cecum through the pelvis. Largest collection of stool is in the right colon. Volume of stool has increased since prior CAT scan 05/24/2022. The previously noted edema around the rectum and low pelvis has improved since prior CAT scan 05/24/2022. No significant stool now present in the rectum. The appendix is normal . The small bowel loops are unremarkable. The stomach is normal. There is no hiatal hernia. ABDOMINAL WALL: No significant hernia is appreciated. LYMPH NODES: Normal. 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 PELVIC VISCERA: Unremarkable. OSSEOUS STRUCTURES: Multilevel spondylosis spine. No acute osseous abnormality. CT/CT abdomen pelvis wo IV con IMPRESSION: 1. No acute abnormality the abdomen or pelvis. 2. Large volume of stool in the colon. No bowel obstruction. No acute change of the bowel. 3. Status post cholecystectomy. 4. Stable nodular thickening of left adrenal gland. Fleischner guidelines were followed.
[2022-07-03 11:06] VITALS: BP 195/72; PULSE 78; RESP 18; TEMP 36.8; O2SAT 97; BMI 21.5
--- NOTE | 2022-07-03 11:06 | ECG_ITS ---
Test Reason : ABDOMINAL PAIN Blood Pressure : / mmHG Vent. Rate : 075 BPM Atrial Rate : 075 BPM P-R Int : 176 ms QRS Dur : 096 ms QT Int : 422 ms P-R-T Axes : 052 -11 049 degrees QTc Int : 471 ms Normal sinus rhythm Biatrial enlargement Left ventricular hypertrophy ( R in aVL , Sokolow-Burton , [place]on product ) Abnormal ECG When compared with ECG of 26-JUN-2022 16:55, No significant change was found Referred By: Bushra Vallejo Electronically Signed By:Charan Hankins
--- NOTE | 2022-07-03 11:18 | ED_ITS ---
HPI - Abdominal Pain General Chief Complaint: Abdominal Pain Stated Complaint: N/V, abd pain per EMS Time Seen by Provider: 07/03/22 11:06 Source: patient, old records reviewed and conference interpreter Mode of arrival: EMS Limitations: no limitations History of Present Illness HPI narrative: 67 yo female with PMH of ESRD on HD MWF cannot tell me whens he last went was supposed to go today, IDDM, HTN, chronic pain on suboxone, HTN, reactive airways disease, non-compliance of medications and treatment reports diffuse abdominal pain since 4am and no bowel movement since then. She has had this before daily but today was worse as she had n/v which doesn't happen every day. She isn't sure if she passed gas. MD elicited complaint: abdominal pain Pertinent past history: constipation Onset (ago): hour(s) (4am today) Pain Consistency: constant Location: diffuse Severity: moderate Quality: aching and fullness Radiation: none Migration to: no migration Exacerbating factors: movement Relieving factors: nothing Context: history of similar episodes Associated symptoms: nausea, vomiting and constipation Related Data Home Medications Medication Instructions Recorded Confirmed buprenorphine 8 mg-naloxone 2 mg 2 strip sublingual DAILY 10/22/20 05/24/22 sublingual film (Suboxone) diltiazem HCl 180 mg 360 mg PO DAILY 10/22/20 05/24/22 capsule,extended release 24 hr bumetanide 2 mg tablet 2 mg PO DAILY 04/15/21 05/24/22 fluticasone propionate 110 1 puff inhalation BID 04/15/21 05/24/22 mcg/actuation HFA aerosol inhaler (Flovent HFA) melatonin 5 mg tablet 5 mg PO BEDTIME PRN Sleep 04/15/21 05/24/22 pantoprazole 40 mg tablet,delayed 40 mg PO DAILY 04/15/21 05/24/22 release vitamin B comp no.3-folic acid 1 1 tab PO DAILY 04/15/21 05/24/22 mg-vit C 60 mg-biotin 300 mcg tablet ([facility]) sennosides 8.6 mg tablet (senna) 1 - 2 tab PO BEDTIME PRN 05/11/21 05/24/22 constipation acetaminophen 500 mg tablet 500 mg PO Q8H PRN Pain, Mild 06/10/21 05/24/22 clonidine HCl 0.2 mg tablet 0.2 mg PO BID 07/27/21 05/24/22 insulin aspart U-100 100 unit/mL 1 sliding scale dose subcut 07/27/21 05/24/22 subcutaneous cartridge (Novolog USEASDIRECTD PenFill U-100 Insulin aspart) insulin glargine 100 unit/mL 7 unit subcut DAILY 09/18/21 05/24/22 subcutaneous solution (Lantus U-100 Insulin) aspirin 81 mg tablet,delayed 1 tab PO DAILY 10/11/21 05/24/22 release albuterol sulfate 90 mcg/actuation 2 puff inhalation Q4H PRN wheezing 01/31/22 05/24/22 aerosol inhaler (Ventolin HFA) diclofenac sodium 1 % topical gel 2 g topical BID 03/09/22 05/24/22 ondansetron 4 mg disintegrating 4 mg PO BID PRN nausea and vomiting 03/09/22 05/24/22 tablet carvedilol 6.25 mg tablet 1 tab PO BID 04/24/22 05/24/22 gabapentin 300 mg capsule 1 cap PO DAILY 04/24/22 05/24/22 hydralazine 50 mg tablet 2 tab PO TID 04/24/22 05/24/22 hydrocortisone 2.5 % topical cream 1 appl OR BID 04/24/22 05/24/22 with perineal applicator tiotropium bromide 18 mcg capsule 1 cap inhalation DAILY 04/24/22 05/24/22 with inhalation device (Spiriva with HandiHaler) albuterol sulfate 2.5 mg/3 mL 1 amp inhalation TID PRN Shortness 05/08/22 05/24/22 (0.083 %) solution for nebulization Of Breath Previous Rx's Medication Instructions Recorded amlodipine 10 mg tablet 10 mg PO BEDTIME #30 tabs 03/07/21 isosorbide mononitrate 30 mg 30 mg PO DAILY #30 tabs 09/20/21 tablet,extended release 24 hr docusate sodium 100 mg capsule 100 mg PO BID PRN Constipation #30 12/04/21 (Colace) caps diphenhydramine HCl 25 mg capsule 25 mg PO DAILY PRN allergy 04/30/22 (Benadryl) symptoms #30 caps polyethylene glycol 3350 17 17 g PO DAILY #238 grams 12/11/22 gram/dose oral powder (Miralax) acetaminophen 500 mg tablet 500 mg PO Q6H PRN fever or pain 05/29/22 #20 tabs lactulose 10 gram/15 mL oral 10 g (15 mL) PO DAILY PRN 07/03/22 solution constipation #237 mL Allergies Allergy/AdvReac Type Severity Reaction Status Date / Time No Known Allergies Allergy Mild NOT Verified 04/14/22 01:40 APPLICABLE Review of Systems Review of Systems Constitutional : No Weight loss, No Fever, No Chills ENT/Mouth : No sore throat, No Rhinorrhea Eyes: No Swelling, No Redness Cardiovascular : No Chest Pain, No SOB, NoEdema Respiratory : No Cough, No Sputum, No Wheezing Gastrointestinal : Positive Nausea, Positive Vomiting, no Diarrhea, positive abdominal Pain, No Hematochezia, No Melena, pos constipation Genitourinary : No Dysuria, No Urinary Frequency, No Hematuria, No Urgency Musculoskeletal : No joint pain, No Myalgias, No Joint Swelling Skin : No Skin Lesions, No rash Neuro : No Weakness, No Numbness, No Dizziness, No Headache Psych : No Anxiety/Panic, No Depression Heme/Lymph: No Bruising, No Lymphadenopathy Endocrine : No Polyuria, No Polydipsia All other systems reviewed and are negative. ON LICENSE OF [facility] Past Medical History Medical History Acute exacerbation of chronic obstructive pulmonary disease (COPD) Acute GI bleeding Anasarca Anemia Anemia in chronic kidney disease Ascites Asthma with COPD with exacerbation Constipation COVID COVID-19 virus infection Diabetes mellitus End stage renal disease on dialysis ESRD (end stage renal disease) ESRD (end stage renal disease) Essential hypertension Heart failure with preserved ejection fraction Hypertension Hypertrophic cardiomyopathy Ischemic colitis Opioid withdrawal Pulmonary congestion Surgical History No pertinent past surgical history Family History Family History Other Hypertension Social History Social History Household Members: None Housing: Apartment Do you presently have visiting nurse or other home services: Yes Unable to assess alcohol history related to: Unknown Alcohol intake: former Patient Tobacco Use Status: Current everyday Tobacco user Tobacco use type: Cigarette Cigarette Packs Per Day: 1 Cigarettes Per Day: 4 Years Smoked: 18 e-Cigarette/Vaping Use: Never Used Second Hand Smoke Exposure: No Substance Use Type: Heroin Advance Directives: Yes Advance Directives on File: Yes Advance Directives Date on File: 04/17/22 service: No Current occupational status: unemployed and disabled Physical Exam ED Vital Signs: Vital Signs - 24 hr 07/03/22 11:06 07/03/22 14:47 Temperature 98.3 F 98.6 F Pulse Rate 78 82 Respiratory Rate 18 15 Blood Pressure 195/72 H 207/83 H Pulse Oximetry 97 96 Oxygen Delivery Method Room Air Room Air BMI result Body Mass Index 21.5 Appearance: Alert. Oriented X3. No acute distress. Eyes: Pupils equal, round and reactive to light. ENT: Pharynx normal. Neck: Normal inspection. Neck supple. CVS: Normal heart rate and rhythm. Pulses normal. Respiratory: No respiratory distress. Breath sounds normal. Abdomen: distended, somewhat firm reports diffuse ttp no rebound Skin: Skin warm and dry. Normal skin color. Normal skin turgor. Extremities: trace edema bilateral lower extremity edema. No calf ttp Neuro: Oriented X 3. No motor deficit. No sensory deficit. Course Course Course Narrative: patient appears to be forcing herself to have emesis Medical Decision Making Medical Decision Making MDM Narrative: 67 yo female with PMH of ESRD on HD MWF cannot tell me whens he last went was supposed to go today, IDDM, HTN, chronic pain on suboxone, HTN, reactive airways disease, non-compliance of medications and treatment at this time c/o pain n/v constipation. Will need labs, EKG, CXR for pulm edema, CT scan for obstruction, pain medications. Dispo per results and findings. Differential Diagnosis Differential Diagnoses: The differential diagnosis associated with the presentation includes Admission/Observation Consideration of admission/observation: Escalation of care including admission/observation considered Lab Data [facility] Lab Attestation statement: I reviewed the patient's lab results. 07/03/22 13:31 07/03/22 13:31 Labs: Lab Results 07/03/22 07/03/22 07/03/22 Range/Units 13:28 13:31 13:31 WBC 10.9 H (4.8-10.8) X10*3/uL RBC 3.50 L (4.20-5.50) X10*6/uL Hgb 10.7 L (12.0-16.0) g/dl Hct 30.8 L (37.0-47.0) % MCV 88.0 (80.0-98.0) fL MCH 30.6 (27.0-33.0) pg MCHC 34.7 (31.0-35.0) g/dl RDW 16.1 H (11.0-16.0) % Plt Count 202 (160-400) X10*3/uL MPV 8.6 L (9.4-12.3) fL Immature Gran % (Auto) 0.8 H (0.0-0.4) % Neut % (Auto) 86.1 H (45-73) % Lymph % (Auto) 6.9 L (20-40) % [place] % (Auto) 4.7 (2-11) % Eos % (Auto) 1.3 (0-4) % Baso % (Auto) 0.2 (0-2) % Lymph # (Auto) 0.8 L (1.2-4.9) X10*3/uL [place] # (Auto) 0.5 (0.1-1.2) X10*3/uL Eos # (Auto) 0.1 (0.0-0.4) X10*3/uL Baso # (Auto) 0.0 (0.0-0.2) X10*3/uL Abs Immat Gran (auto) 0.09 H (0.00-0.03) X10*3/uL Absolute Neuts (auto) 9.4 H (2.0-8.3) x10*3/uL Absolute Nucleated RBC 0.000 (0.0-0.012) X10*3/uL Nucleated RBC % (auto) 0.0 (0.0-0.2) /100WBC Sodium 126 L (135-145) mmol/L Potassium 4.9 (3.3-5.1) mmol/L Chloride 86 L (96-108) mmol/L Carbon Dioxide 25 (22-29) mmol/L Anion Gap 20 (12-20) BUN 62 H (9-16) mg/dL Creatinine 6.79 H* (0.5-1.4) mg/dL Estim Creat Clear Calc 6.1 Estimated GFR 6 Random Glucose 179 H (60-115) mg/dL Calcium 9.6 (8.4-10.2) mg/dL Magnesium 2.2 (1.6-2.6) mg/dL Total Bilirubin 0.7 (0.0-1.0) mg/dL Direct Bilirubin 0.2 (0.0-0.5) mg/dL AST 26 (5-31) U/L ALT 18 (0-31) U/L Alkaline Phosphatase 239 H (39-117) U/L Total Protein 7.3 (6.5-8.0) g/dL Albumin 4.4 (3.5-5.0) g/dL Lipase 13 (8-78) U/L COVID-19 (KRYSTINA) Negative (Negative) COVID-19 Clin Com See Note Independent Interpretation I performed an independent interpretation of an: EKG and Plain X-Ray Interpretation: Rate: 75 Rhythm: NSR Sibley: left , LVH Normal P waves. Normal FRIEDA. Normal QRS complex. ST T wave : nonspecific no MELLISA qTC: normal prior studies: no acute ischemia The study has been interpreted contemporaneously by me. . External Record Review External record reviewed: Inpatient record and Prior outpatient labs Prescription Management I considered prescription management with: Other Chronic Conditions Patient?s care impacted by: Hypertension and Other Social Determinants Patient?s care significantly limited by Social Determinants of Health including: Problems related to primary support group and Other Social Determinant of Health Medications Administered Discontinued Medications Generic Name Dose Route Start Last Admin Trade Name Freq PRN Reason Stop Dose Admin Hydromorphone HCl 1 mg 07/03/22 12:46 07/03/22 13:43 Hydromorphone Hcl 1 Mg/Ml Syringe IM 07/03/22 12:47 1 mg ONCE ONE Administration Protocol Metoclopramide HCl 10 mg 07/03/22 14:51 07/03/22 15:20 Metoclopramide Hcl 10 Mg/2 Ml Vial IM 07/03/22 14:52 10 mg ONCE ONE Administration Nitroglycerin 1 inch 07/03/22 14:51 07/03/22 15:20 Nitroglycerin 2 % Oint 1 Gm Packet TRANSDERMA 07/03/22 14:52 1 inch ONCE ONE Administration Ondansetron HCl 4 mg 07/03/22 12:11 07/03/22 12:18 Ondansetron Odt 4 Mg Tab.Lawson MEMBRENOU 07/03/22 12:12 4 mg ONCE ONE Administration Discharge Plan Discharge Clinical Impression: Acute constipation Abdominal pain Qualifiers: Abdominal location: generalized Qualified Code(s): R10.84 - Generalized abdo karlee pain Nausea & vomiting Qualifiers: Vomiting type: unspecified Qualified Code(s): R11.2 - Nausea with vomiting, unspecified Hypertension Qualifiers: Hypertension type: unspecified Qualified Code(s): I10 - Essential (primary) hypertension Patient Disposition: Left Against Medical Advice Instructions: Constipation (ED), Acute Nausea and Vomiting (ED), Chronic Hypertension (ED), Abdominal Pain (ED), Against Medical Advice (ED) Additional Instructions: return to ED for any worsening symptoms or concerns you left prior to your full workup including results of your CT scan. you can come back at any time if it not advised you leave prior to a full workup this can lead to serious consequences or risk your life go to dialysis tomorrow Prescriptions: New lactulose 10 gram/15 mL solution 10 g PO DAILY PRN (Reason: constipation) Qty: 237 0RF No Action buprenorphine-naloxone [Suboxone] 8-2 mg film 2 strip sublingual DAILY diltiazem HCl 180 mg capsule,extended release 24hr 360 mg PO DAILY acetaminophen 500 mg Tablet 500 mg PO Q8H PRN (Reason: Pain, Mild) clonidine HCl 0.2 mg tablet 0.2 mg PO BID insulin aspart U-100 [Novolog PenFill U-100 Insulin] 100 unit/mL Cartridge 1 sliding scale dose SUBCUT USEASDIRECTD Protocol: Insulin Correction Scale Less than or equal to 110 ---- Give (units): 0 111 to 150 Give (units): 0 151 to 200 Give (units): 4 201 to 250 Give (units): 6 251 to 300 Give (units): 8 301 to 350 Give (units): 10 Greater than 350 Give (units): 12 Call MD if Blood Glucose > : 350 docusate sodium [Colace] 100 mg capsule 100 mg PO BID PRN (Reason: Constipation) Qty: 30 0RF amlodipine 10 mg Tablet 10 mg PO BEDTIME Qty: 30 0RF Protocol: Hold for SBP< HOLD for SBP < : 90 Rx Instructions: replaces prior dose of 5 mg daily bumetanide 2 mg Tablet 2 mg PO DAILY pantoprazole 40 mg Tablet,Delayed Release (Dr/Ec) 40 mg PO DAILY melatonin 5 mg Tablet 5 mg PO BEDTIME PRN (Reason: Sleep) [facility] 1-60-300 mg-mg-mcg Tablet 1 tab PO DAILY fluticasone propionate [Flovent HFA] 110 mcg/actuation Hfa Aerosol Inhaler 1 puff INHALATION BID sennosides [senna] 8.6 mg tablet 1 - 2 tab PO BEDTIME PRN (Reason: constipation) insulin glargine [Lantus U-100 Insulin] 100 unit/mL solution 7 unit subcut DAILY isosorbide mononitrate 30 mg Tablet Extended Release 24 Hr 30 mg PO DAILY Qty: 30 0RF Protocol: Hold for SBP< HOLD for SBP < : 90 aspirin 81 mg tablet,delayed release (DR/EC) 1 tab PO DAILY albuterol sulfate [Ventolin HFA] 90 mcg/actuation HFA aerosol inhaler 2 puff INHALATION Q4H PRN (Reason: wheezing) diclofenac sodium 1 % gel 2 g topical BID ondansetron 4 mg tablet,disintegrating 4 mg PO BID PRN (Reason: nausea and vomiting) carvedilol 6.25 mg tablet 1 tab PO BID Spiriva with HandiHaler 18 mcg capsule, w/inhalation device 1 cap inhalation DAILY hydralazine 50 mg tablet 2 tab PO TID hydrocortisone 2.5 % cream with perineal applicator 1 appl OR BID gabapentin 300 mg capsule 1 cap PO DAILY diphenhydramine HCl [Benadryl] 25 mg capsule 25 mg PO DAILY PRN (Reason: allergy symptoms) Qty: 30 0RF polyethylene glycol 3350 [Miralax] 17 gram/dose powder 17 g PO DAILY Qty: 238 0RF albuterol sulfate 2.5 mg /3 mL (0.083 %) solution for nebulization 1 amp inhalation TID PRN (Reason: Shortness Of Breath) acetaminophen 500 mg tablet 500 mg PO Q6H PRN (Reason: fever or pain) Qty: 20 0RF Interventions: ED Discharge Assessment Last Done: 07/03/22 15:53 Discharge Date/Time: 07/03/22 15:55
[2022-07-03] MEDS: Ondansetron ODT 4 MG TAB.RAPDIS TRANSLINGU (12:18)
[2022-07-03 13:34] LABS: MANUAL DIFF FLAG NO
[2022-07-03 13:36] LABS: Basophils Percent Auto 0.2 % (0-2); Eosinophils Absolute Auto 0.1 X10*3/uL (0.0-0.4); Eosinophils Percent Auto 1.3 % (0-4); Hematocrit 30.8 % (37.0-47.0); Hemoglobin 10.7 g/dl (12.0-16.0); Imm Gran Abs Auto 0.09 X10*3/uL (0.00-0.03); Imm Gran Pct Auto 0.8 % (0.0-0.4); Lymphocytes Absolute Auto 0.8 X10*3/uL (1.2-4.9); Lymphocytes Percent Auto 6.9 % (20-40); Mean Corpuscular HGB Conc 34.7 g/dl (31.0-35.0); Mean Corpuscular Hemoglobin 30.6 pg (27.0-33.0); Mean Platelet Volume 8.6 fL (9.4-12.3); Monocytes Absolute Auto 0.5 X10*3/uL (0.1-1.2); Monocytes Percent Auto 4.7 % (2-11); Neutrophils Absolute Auto 9.4 x10*3/uL (2.0-8.3); Neutrophils Percent Auto 86.1 % (45-73); Platelet Count 202 X10*3/uL (160-400); Red Cell Distribution Width 16.1 % (11.0-16.0); White Blood Count 10.9 X10*3/uL (4.8-10.8)
[2022-07-03] MEDS: HYDROmorphone HCl 1 MG/ML SYRINGE IM (13:43)
[2022-07-03 13:57] LABS: COVID-19 Test Negative (Negative); IDNOW Serial# 16C4AD1C
[2022-07-03 14:10] LABS: Alanine Aminotransferase 18 U/L (0-31); Albumin Level 4.4 g/dL (3.5-5.0); Alkaline Phosphatase 239 U/L (39-117); Anion Gap 20 (12-20); Aspartate Amino Transferase 26 U/L (5-31); Bilirubin Direct 0.2 mg/dL (0.0-0.5); Bilirubin Total 0.7 mg/dL (0.0-1.0); Blood Urea Nitrogen 62 mg/dL (9-16); Calcium 9.6 mg/dL (8.4-10.2); Carbon Dioxide 25 mmol/L (22-29); Chloride 86 mmol/L (96-108); Creatinine Clr Calc Pharmacy 6.1; Estimated Glomerular Filt Rate 6; Glucose Random 179 mg/dL (60-115); Lipase 13 U/L (8-78); Magnesium 2.2 mg/dL (1.6-2.6); Potassium 4.9 mmol/L (3.3-5.1); Sodium 126 mmol/L (135-145); Total Protein 7.3 g/dL (6.5-8.0)
[2022-07-03 14:47] VITALS: BP 207/83; PULSE 82; RESP 15; TEMP 37; O2SAT 96
[2022-07-03] MEDS: Metoclopramide HCl 10 MG/2 ML VIAL IM (15:20)
[2022-07-03] MEDS: Nitroglycerin 2 % Oint 1 GM Packet 1 INCH TRANSDERMA (15:20)
== END 2022-07-03 15:55 | disposition left against medical advice (07) ==
PROVIDERS: Emergency Provider Emergency Medicine; PCP Internal Medicine
DX: K59.00 Constipation, unspecified (principal); R10.84 Generalized abdominal pain; R11.2 Nausea with vomiting, unspecified; E11.22 Type 2 diabetes mellitus with diabetic chronic kidney disease; I13.2 Hypertensive heart and chronic kidney disease with heart failure and with stage 5 chronic kidney disease, or end stage renal disease; N18.6 End stage renal disease; I50.9 Heart failure, unspecified; D63.1 Anemia in chronic kidney disease; Z99.2 Dependence on renal dialysis; Z91.15 Patient's noncompliance with renal dialysis; F11.20 Opioid dependence, uncomplicated; F17.210 Nicotine dependence, cigarettes, uncomplicated; Z20.822 Contact with and (suspected) exposure to COVID-19; Z79.4 Long term (current) use of insulin; Z79.82 Long term (current) use of aspirin; Z79.899 Other long term (current) drug therapy
CPT/HCPCS: 71045; 74176; 80048; 80076; 83690; 83735; 85025; 87635; 93005; 96372; 99284; 99285; J1170; J2765

== ENCOUNTER 2022-07-04 01:05 | Emergency (ER) | payer OTHER, SELFPAY ==
[2022-07-04 01:17] VITALS: BP 193/81; PULSE 82; RESP 13; TEMP 36.8; O2SAT 95
[2022-07-04 01:26] VITALS: BP 193/81; BP 220/98; PULSE 102; PULSE 82; RESP 14; O2SAT 93; O2SAT 95; BMI 26.0
--- NOTE | 2022-07-04 02:01 | ED_ITS ---
HPI - Abdominal Pain General Chief Complaint: Abdominal Pain Stated Complaint: abd pain Time Seen by Provider: 07/04/22 01:43 Source: patient and EMS Mode of arrival: EMS Limitations: no limitations History of Present Illness HPI narrative: 67-year-old female with history of end-stage renal disease on hemodialysis came in for evaluation of chronic abdominal pain, patient was seen earlier today in the emergency department for similar symptoms, patient had unremarkable CT except for constipation, patient stated that she did not had bowel movement for the past 3 days , positive passing flatus. Related Data Home Medications Medication Instructions Recorded Confirmed buprenorphine 8 mg-naloxone 2 mg 2 strip sublingual DAILY 10/22/20 05/24/22 sublingual film (Suboxone) diltiazem HCl 180 mg 360 mg PO DAILY 10/22/20 05/24/22 capsule,extended release 24 hr bumetanide 2 mg tablet 2 mg PO DAILY 04/15/21 05/24/22 fluticasone propionate 110 1 puff inhalation BID 04/15/21 05/24/22 mcg/actuation HFA aerosol inhaler (Flovent HFA) melatonin 5 mg tablet 5 mg PO BEDTIME PRN Sleep 04/15/21 05/24/22 pantoprazole 40 mg tablet,delayed 40 mg PO DAILY 04/15/21 05/24/22 release vitamin B comp no.3-folic acid 1 1 tab PO DAILY 04/15/21 05/24/22 mg-vit C 60 mg-biotin 300 mcg tablet ([facility]) sennosides 8.6 mg tablet (senna) 1 - 2 tab PO BEDTIME PRN 05/11/21 05/24/22 constipation acetaminophen 500 mg tablet 500 mg PO Q8H PRN Pain, Mild 06/10/21 05/24/22 clonidine HCl 0.2 mg tablet 0.2 mg PO BID 07/27/21 05/24/22 insulin aspart U-100 100 unit/mL 1 sliding scale dose subcut 07/27/21 05/24/22 subcutaneous cartridge (Novolog USEASDIRECTD PenFill U-100 Insulin aspart) insulin glargine 100 unit/mL 7 unit subcut DAILY 09/18/21 05/24/22 subcutaneous solution (Lantus U-100 Insulin) aspirin 81 mg tablet,delayed 1 tab PO DAILY 10/11/21 05/24/22 release albuterol sulfate 90 mcg/actuation 2 puff inhalation Q4H PRN wheezing 01/31/22 05/24/22 aerosol inhaler (Ventolin HFA) diclofenac sodium 1 % topical gel 2 g topical BID 03/09/22 05/24/22 ondansetron 4 mg disintegrating 4 mg PO BID PRN nausea and vomiting 03/09/22 05/24/22 tablet carvedilol 6.25 mg tablet 1 tab PO BID 04/24/22 05/24/22 gabapentin 300 mg capsule 1 cap PO DAILY 04/24/22 05/24/22 hydralazine 50 mg tablet 2 tab PO TID 04/24/22 05/24/22 hydrocortisone 2.5 % topical cream 1 appl VT BID 04/24/22 05/24/22 with perineal applicator tiotropium bromide 18 mcg capsule 1 cap inhalation DAILY 04/24/22 05/24/22 with inhalation device (Spiriva with HandiHaler) albuterol sulfate 2.5 mg/3 mL 1 amp inhalation TID PRN Shortness 05/08/22 05/24/22 (0.083 %) solution for nebulization Of Breath Previous Rx's Medication Instructions Recorded amlodipine 10 mg tablet 10 mg PO BEDTIME #30 tabs 03/07/21 isosorbide mononitrate 30 mg 30 mg PO DAILY #30 tabs 09/20/21 tablet,extended release 24 hr docusate sodium 100 mg capsule 100 mg PO BID PRN Constipation #30 12/04/21 (Colace) caps diphenhydramine HCl 25 mg capsule 25 mg PO DAILY PRN allergy 04/30/22 (Benadryl) symptoms #30 caps polyethylene glycol 3350 17 17 g PO DAILY #238 grams 04/30/22 gram/dose oral powder (Miralax) acetaminophen 500 mg tablet 500 mg PO Q6H PRN fever or pain 05/29/22 #20 tabs lactulose 10 gram/15 mL oral 10 g (15 mL) PO DAILY PRN 07/03/22 solution constipation #237 mL Allergies Allergy/AdvReac Type Severity Reaction Status Date / Time No Known Allergies Allergy Mild NOT Verified 04/14/22 01:40 APPLICABLE Review of Systems Review of Systems all other systems are reviewed and are negative Constitutional: Reports as per HPI and Reports no additional constitutional complaints Eyes: Reports as per HPI and Reports no additional eye complaints Reports system reviewed and no additional complaints, except as documented Cardiovascular: Reports as per HPI and Reports no additional cardiovascular complaints Respiratory: Reports as per HPI and Reports no additional respiratory complaints Gastrointestinal: Reports as per HPI and Reports no additional gastrointestinal complaints Genitourinary: Reports no additional female genitourinary complaints Musculoskeletal: Reports no additional musculoskeletal complaints Skin/Breast: Reports system reviewed and no additional complaints, except as docu Psychiatric: Reports no additional psychiatric complaints Endocrine: Reports no additional endocrine complaints Hematologic/Lymphatic: Reports no additional hematologic/lymphatic complaints Allergic/Immunologic: Reports no additional allergic/immunologic complaints Reports system reviewed and no additional complaints, except as documented and Reports Abnormal speech present [facility] Past Medical History Medical History Acute exacerbation of chronic obstructive pulmonary disease (COPD) Acute GI bleeding Anasarca Anemia Anemia in chronic kidney disease Ascites Asthma with COPD with exacerbation Constipation COVID COVID-19 virus infection Diabetes mellitus End stage renal disease on dialysis ESRD (end stage renal disease) ESRD (end stage renal disease) Essential hypertension Heart failure with preserved ejection fraction Hypertension Hypertrophic cardiomyopathy Ischemic colitis Opioid withdrawal Pulmonary congestion Surgical History No pertinent past surgical history Family History Family History Other Hypertension Social History Social History Household Members: None Housing: Apartment Do you presently have visiting nurse or other home services: Yes Unable to assess alcohol history related to: Unknown Alcohol intake: never Patient Tobacco Use Status: Current everyday Tobacco user Tobacco use type: Cigarette Cigarette Packs Per Day: 1 Cigarettes Per Day: 4 Years Smoked: 18 Smoked in Last 30 Days: No e-Cigarette/Vaping Use: Never Used Second Hand Smoke Exposure: No Use of substances other than those prescribed or required for medical reasons: No Substance Use Type: Heroin Advance Directives: Yes Advance Directives on File: Yes Advance Directives Date on File: 04/17/22 service: No Current occupational status: unemployed and disabled Physical Exam ED Vital Signs: Vital Signs - 24 hr 07/04/22 01:17 07/04/22 01:26 Temperature 98.3 F Pulse Rate 82 82 Respiratory Rate 13 14 Blood Pressure 193/81 H 193/81 H Pulse Oximetry 95 95 Oxygen Delivery Method Room Air Room Air BMI result Body Mass Index 26.0 vital signs have been reviewed as appeared to be correct. Blood pressure normal. Heart rate normal. Respiration rate normal. Temperature normal. Oxygen saturation normal. Appearance: Alert. Oriented X3. No acute distress. Head: Normal external exam. Normocephalic. Atraumatic. No Moran signs noted. No raccoon eyes noted Eyes: PERRLA. EOMI. Conjunctiva and sclera normal. Eyelids normal. ENT: TM's Normal. Pharynx normal. Uvula midline. Moist mucous membranes. No trismus noted. No drooling noted. No muffled voice noted. Neck: Normal inspection. Neck supple. FROM. No adenopathy. Thyroid Normal. No meningeal signs. No neck mass noted. CVS: Normal heart rate and rhythm. Heart sound normal. No murmurs noted. Pulses normal throughout. Respiratory: No respiratory distress. Painless inspiration. Breath sounds normal. No wheezes/rales/rhonchi noted. Chest nontender. No accessory muscle usage noted or decreased air movement noted. Abdomen: Soft and nontender. Bowel sounds normal in all 4 quadrants. No distention noted. No organomegaly noted. No visible injury noted. Back: No CVA tenderness. Full range of motion noted. Skin: Skin warm and dry. Normal skin color. Normal skin turgor. No rashes/lesions/lacerations noted. Extremities: No lower extremity edema. Extremities exhibit normal range of motion. Extremities nontender. Neuro: Oriented X 3. Cranial nerve exam: II-XII are grossly intact No motor deficit. No sensory deficit. Reflexes normal. Medical Decision Making Differential Diagnosis Differential Diagnoses: The differential diagnosis associated with the presen tation includes ( chronic abdominal pain, constipation) Lab Data MDM Lab Attestation statement: I reviewed the patient's lab results. 07/04/22 01:57 07/04/22 01:57 Labs: Lab Results 07/04/22 07/04/22 Range/Units 01:57 01:57 WBC 9.2 (4.8-10.8) X10*3/uL RBC 3.49 L (4.20-5.50) X10*6/uL Hgb 10.5 L (12.0-16.0) g/dl Hct 30.7 L (37.0-47.0) % MCV 88.0 (80.0-98.0) fL MCH 30.1 (27.0-33.0) pg MCHC 34.2 (31.0-35.0) g/dl RDW 16.4 H (11.0-16.0) % Plt Count 211 (160-400) X10*3/uL MPV 9.0 L (9.4-12.3) fL Immature Gran % (Auto) 0.6 H (0.0-0.4) % Neut % (Auto) 83.7 H (45-73) % Lymph % (Auto) 9.1 L (20-40) % [place] % (Auto) 5.0 (2-11) % Eos % (Auto) 1.4 (0-4) % Baso % (Auto) 0.2 (0-2) % Lymph # (Auto) 0.8 L (1.2-4.9) X10*3/uL [place] # (Auto) 0.5 (0.1-1.2) X10*3/uL Eos # (Auto) 0.1 (0.0-0.4) X10*3/uL Baso # (Auto) 0.0 (0.0-0.2) X10*3/uL Abs Immat Gran (auto) 0.06 H (0.00-0.03) X10*3/uL Absolute Neuts (auto) 7.7 (2.0-8.3) x10*3/uL Absolute Nucleated RBC 0.000 (0.0-0.012) X10*3/uL Nucleated RBC % (auto) 0.0 (0.0-0.2) /100WBC Sodium 126 L (135-145) mmol/L Potassium 5.0 (3.3-5.1) mmol/L Chloride 84 L (96-108) mmol/L Carbon Dioxide 23 (22-29) mmol/L Anion Gap 24 H (12-20) BUN 71 H (9-16) mg/dL Creatinine 7.94 H* (0.5-1.4) mg/dL Estim Creat Clear Calc 5.9 Estimated GFR 5 Random Glucose 191 H (60-115) mg/dL Calcium 9.6 (8.4-10.2) mg/dL Total Bilirubin 0.7 (0.0-1.0) mg/dL AST 26 (5-31) U/L ALT 19 (0-31) U/L Alkaline Phosphatase 244 H (39-117) U/L Total Protein 7.6 (6.5-8.0) g/dL Albumin 4.7 (3.5-5.0) g/dL Lipase 14 (8-78) U/L Medications Administered Discontinued Medications Generic Name Dose Route Start Last Admin Trade Name Mickeyq PRN Reason Stop Dose Admin Mineral Oil 133 ml 07/04/22 01:59 07/04/22 02:18 Mineral Oil Enema 133 Ml Enema VT 07/04/22 02:00 133 ml ONCE ONE Administration Discharge Plan Discharge Clinical Impression: Chronic abdominal pain, Constipation Patient Disposition: Home, Self-Care Instructions: Constipation (ED) Additional Instructions: go to your dialysis as scheduled in the morning. Prescriptions: No Action buprenorphine-naloxone [Suboxone] 8-2 mg film 2 strip sublingual DAILY diltiazem HCl 180 mg capsule,extended release 24hr 360 mg PO DAILY acetaminophen 500 mg Tablet 500 mg PO Q8H PRN (Reason: Pain, Mild) clonidine HCl 0.2 mg tablet 0.2 mg PO BID insulin aspart U-100 [Novolog PenFill U-100 Insulin] 100 unit/mL Cartridge 1 sliding scale dose SUBCUT USEASDIRECTD Protocol: Insulin Correction Scale Less than or equal to 110 ---- Give (units): 0 111 to 150 Give (units): 0 151 to 200 Give (units): 4 201 to 250 Give (units): 6 251 to 300 Give (units): 8 301 to 350 Give (units): 10 Greater than 350 Give (units): 12 Call MD if Blood Glucose > : 350 docusate sodium [Colace] 100 mg capsule 100 mg PO BID PRN (Reason: Constipation) Qty: 30 0RF amlodipine 10 mg Tablet 10 mg PO BEDTIME Qty: 30 0RF Protocol: Hold for SBP< HOLD for SBP < : 90 Rx Instructions: replaces prior dose of 5 mg daily bumetanide 2 mg Tablet 2 mg PO DAILY pantoprazole 40 mg Tablet,Delayed Release (Dr/Ec) 40 mg PO DAILY melatonin 5 mg Tablet 5 mg PO BEDTIME PRN (Reason: Sleep) [facility] 1-60-300 mg-mg-mcg Tablet 1 tab PO DAILY fluticasone propionate [Flovent HFA] 110 mcg/actuation Hfa Aerosol Inhaler 1 puff INHALATION BID sennosides [senna] 8.6 mg tablet 1 - 2 tab PO BEDTIME PRN (Reason: constipation) insulin glargine [Lantus U-100 Insulin] 100 unit/mL solution 7 unit subcut DAILY isosorbide mononitrate 30 mg Tablet Extended Release 24 Hr 30 mg PO DAILY Qty: 30 0RF Protocol: Hold for SBP< HOLD for SBP < : 90 aspirin 81 mg tablet,delayed release (DR/EC) 1 tab PO DAILY albuterol sulfate [Ventolin HFA] 90 mcg/actuation HFA aerosol inhaler 2 puff INHALATION Q4H PRN (Reason: wheezing) diclofenac sodium 1 % gel 2 g topical BID ondansetron 4 mg tablet,disintegrating 4 mg PO BID PRN (Reason: nausea and vomiting) carvedilol 6.25 mg tablet 1 tab PO BID Spiriva with HandiHaler 18 mcg capsule, w/inhalation device 1 cap inhalation DAILY hydralazine 50 mg tablet 2 tab PO TID hydrocortisone 2.5 % cream with perineal applicator 1 appl VT BID gabapentin 300 mg capsule 1 cap PO DAILY diphenhydramine HCl [Benadryl] 25 mg capsule 25 mg PO DAILY PRN (Reason: allergy symptoms) Qty: 30 0RF polyethylene glycol 3350 [Miralax] 17 gram/dose powder 17 g PO DAILY Qty: 238 0RF albuterol sulfate 2.5 mg /3 mL (0.083 %) solution for nebulization 1 amp inhalation TID PRN (Reason: Shortness Of Breath) acetaminophen 500 mg tablet 500 mg PO Q6H PRN (Reason: fever or pain) Qty: 20 0RF lactulose 10 gram/15 mL solution 10 g PO DAILY PRN (Reason: constipation) Qty: 237 0RF
[2022-07-04 02:02] LABS: Basophils Percent Auto 0.2 % (0-2); Eosinophils Absolute Auto 0.1 X10*3/uL (0.0-0.4); Eosinophils Percent Auto 1.4 % (0-4); Hematocrit 30.7 % (37.0-47.0); Hemoglobin 10.5 g/dl (12.0-16.0); Imm Gran Abs Auto 0.06 X10*3/uL (0.00-0.03); Imm Gran Pct Auto 0.6 % (0.0-0.4); Lymphocytes Absolute Auto 0.8 X10*3/uL (1.2-4.9); Lymphocytes Percent Auto 9.1 % (20-40); MANUAL DIFF FLAG NO; Mean Corpuscular HGB Conc 34.2 g/dl (31.0-35.0); Mean Corpuscular Hemoglobin 30.1 pg (27.0-33.0); Monocytes Absolute Auto 0.5 X10*3/uL (0.1-1.2); Neutrophils Absolute Auto 7.7 x10*3/uL (2.0-8.3); Neutrophils Percent Auto 83.7 % (45-73); Platelet Count 211 X10*3/uL (160-400); Red Blood Count 3.49 X10*6/uL (4.20-5.50); Red Cell Distribution Width 16.4 % (11.0-16.0); White Blood Count 9.2 X10*3/uL (4.8-10.8)
[2022-07-04] MEDS: Mineral OiL enema 133 ML ENEMA PR (02:18)
[2022-07-04 02:31] LABS: Alanine Aminotransferase 19 U/L (0-31); Albumin Level 4.7 g/dL (3.5-5.0); Alkaline Phosphatase 244 U/L (39-117); Anion Gap 24 (12-20); Aspartate Amino Transferase 26 U/L (5-31); Bilirubin Total 0.7 mg/dL (0.0-1.0); Blood Urea Nitrogen 71 mg/dL (9-16); Calcium 9.6 mg/dL (8.4-10.2); Carbon Dioxide 23 mmol/L (22-29); Chloride 84 mmol/L (96-108); Glucose Random 191 mg/dL (60-115); Lipase 14 U/L (8-78); Sodium 126 mmol/L (135-145); Total Protein 7.6 g/dL (6.5-8.0)
[2022-07-04 02:32] LABS: Creatinine Clr Calc Pharmacy 5.9; Estimated Glomerular Filt Rate 5
== END 2022-07-04 02:49 | disposition home or self-care (01) ==
PROVIDERS: Physician Assistant; Emergency Provider Emergency Medicine
DX: K59.00 Constipation, unspecified (principal); R10.9 Unspecified abdominal pain; Z79.899 Other long term (current) drug therapy
CPT/HCPCS: 36415; 80053; 83690; 85025; 99284

== ENCOUNTER 2022-07-10 03:15 | Inpatient (IN) | payer OTHER, SELFPAY ==
[2022-07-10] VITALS (10 sets, daily range): BP systolic 149–198; BP diastolic 62–100; PULSE 69–93; RESP 12–22; TEMP 36.2–37.3; O2SAT 89–97; BMI 26.2; BMI 22.3
--- NOTE | ~2022-07-10 | CT_ITS ---
EXAMINATION: CT CHEST WITHOUT CONTRAST CLINICAL INFORMATION: Aspiration pneumonia/CHF COMPARISON: March 26, 2022 TECHNIQUE: Multidetector volumetric CT imaging of the chest was done. Axial MIP volume rendering provided. Sagittal and coronal reformatted images were obtained. This CT examination was performed using dose optimization techniques as appropriate, variously including the following: *Automated exposure control *Adjustment of mA and/or kV according to patient size (this includes techniques or standardized protocols for targeted exams where dose is matched to indication/reason for exam; i.e. extremities or head) *Use of iterative reconstruction technique DLP: 207 mGy-cm FINDINGS: There is motion artifact present degrading study. LUNGS: There is parenchymal consolidation and air bronchograms seen within the right middle lobe. There are some other patchy regions of disease within the right upper lobe and left upper lobe. There is a region of confluent parenchymal disease also seen within the left upper lobe anteriorly and medially. Central airways are patent. There is bronchial wall thickening present. No evidence of bronchiectasis. The disease is not predominantly perihilar. There are some ill-defined rounded densities present such as within the right upper lobe measuring 6 mm in diameter on image [address] series #5. There is another example of this within the left upper lobe on image 162 of 518. These may be inflammatory in nature as well and follow-up study will be recommended. MEDIASTINUM: The heart is enlarged. No pericardial effusion. Coronary artery calcifications are present. Right internal jugular central venous catheter is seen in place with tip within the mid right atrium. No thoracic aortic aneurysm. There appears to be right paratracheal and precarinal lymphadenopathy as well as possible right hilar lymphadenopathy however without contrast and with motion artifact this is difficult to evaluate. There is an 8 mm low density nodule within the right thyroid lobe which does not require follow-up. CORONARY ARTERY CALCIFICATION: Present PLEURA: There is a trace right pleural effusion. No pleural mass or thickening. AXILLA: No lymphadenopathy. UPPER ABDOMEN: There is a left renal upper pole cyst. There is prominence of the left adrenal gland. OSSEOUS STRUCTURES: Old healed right rib fracture. No suspicious destructive bony lesion identified. CT/CT chest wo IV con IMPRESSION: Right middle lobe consolidation with air bronchograms. Smaller region of consolidation within the left upper lobe. Scattered patchy regions of disease within the upper lobes bilaterally. Cardiomegaly. Cannot rule out component of pulmonary vascular congestion superimposed upon the other regions of disease which are likely infectious in etiology and less likely related to atelectasis. Mediastinal and right hilar lymphadenopathy. According to the UPDATED 2017 Fleischner Society recommendations, the advised follow-up imaging for multiple solid nodules, the largest measuring 6 mm or greater, is: LOW RISK PATIENT: CT at 3-6 months, then consider CT at 18-24 months. HIGH RISK PATIENT: CT at 3-6 months, then at 18-24 months.
--- NOTE | ~2022-07-10 | XR_ITS ---
EXAMINATION: XR CHEST CLINICAL INFORMATION: Short of breath. CHF. COMPARISON: 07/03/2012 TECHNIQUE: Frontal view of the chest was obtained. FINDINGS: Right-sided central venous catheter terminates near the cavoatrial junction. The lungs are well expanded. Hazy right perihilar opacity. No pleural effusion or pneumothorax. The cardiomediastinal silhouette is unchanged, with a calcified aorta. XR/XR chest 1V IMPRESSION: Hazy right perihilar opacity could represent atelectasis or pneumonia. Aspiration possible.
--- NOTE | ~2022-07-10 | CT_ITS ---
EXAMINATION: CT ABDOMEN AND PELVIS WITHOUT CONTRAST CLINICAL INFORMATION: Left upper quadrant pain COMPARISON: Previous CT of the abdomen and pelvis most recent 07/03/2022 TECHNIQUE: Multidetector volumetric imaging was performed from the superior aspect of the liver through the pubic symphysis. Sagittal and coronal reformatted images were obtained on the technologist's workstation. This CT examination was performed using dose optimization techniques as appropriate, variously including the following: *Automated exposure control *Adjustment of mA and/or kV according to patient size (this includes techniques or standardized protocols for targeted exams where dose is matched to indication/reason for exam; i.e. extremities or head) *Use of iterative reconstruction technique DLP: 393 mGy-cm FINDINGS: LUNG BASES: New right middle lobe atelectasis/consolidation. New scattered bilateral lower lobe nodular opacities. Largest area measures 2 cm in the anterior basal right lower lobe axial image 13 series 4. This probably represents an infectious or inflammatory process. Small right pleural effusion. Enlarged heart. LIVER, GALLBLADDER, AND BILIARY TREE: The liver is normal in size, shape, and attenuation. No focal hepatic lesion or biliary ductal dilatation is present. The gallbladder has been removed. PANCREAS: Pancreas appears atrophic. SPLEEN: Unremarkable. ADRENAL GLANDS: Prominent slightly nodular left adrenal gland. This is similar to previous exams. Normal right adrenal gland. KIDNEYS AND URETERS: Left renal cyst. No imaging follow-up recommended. 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 This is stable. BLADDER: Unremarkable. GASTROINTESTINAL TRACT: There is still a large amount of stool in the colon suggestive of severe constipation.. There are are dilated loops of small and proximal large bowel. No transition zone is seen to suggest mechanical obstruction. No evidence of colitis or diverticulitis. No ascites or free air. The appendix is not seen. ABDOMINAL WALL: No significant hernia is appreciated. LYMPH NODES: Normal. VASCULAR: Atherosclerotic disease. 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 PELVIC VISCERA: Unremarkable. OSSEOUS STRUCTURES: L3 vertebral body compression fracture. This is similar to previous exam. Mild degenerative changes of the spine. CT/CT abdomen pelvis wo IV con IMPRESSION: Large amount of stool in the colon suggestive of severe constipation. Increasing dilatation of small and large bowel loops. No transition zone to suggest a mechanical obstruction. New right middle lobe atelectasis/consolidation and bilateral lower lobe nodular opacities from 07/03/2022. This probably represents an infectious or inflammatory process. Left renal cyst. 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 This is not appreciably changed from previous exams. This could be better evaluated with a CTA if clinically indicated. Stable L3 compression fracture. Fleischner guidelines were followed.
--- NOTE | 2022-07-10 03:36 | PC.NURSE ---
O2 titrated down to 2 lpm via NC, pt able to maintain SpO2 >90% but reported SOB. This RN increased O2 to 4 lpm via NC and pt reported decreased SOB.
--- NOTE | 2022-07-10 03:40 | PC.NURSE ---
Pt tolerated bladder scan well. Bladder scan reading with 10 mL of urine in the bladder.
--- NOTE | 2022-07-10 03:48 | ED.GENADULT ---
HPI - General Adult General Chief complaint: General Medical Stated complaint: urinary retention Time Seen by Provider: 07/10/22 03:48 Source: patient Mode of arrival: EMS Limitations: no limitations History of Present Illness HPI narrative: Patient 67 yrs old with history of COPD, ESRD on HD, TTHS, diabetes, HFpEF, ischemic colitis , on home oxygen 1 L comes here for increased cough and pain all over the back nausea headache and shortness of breath all day yesterday patient is supposed to be on 1 L of oxygen 24 hours prior to arrival she walked from inside of the house to the ambulance without oxygen and pulse ox dropped to 80s, improved to high 90s after oxygen was placed patient been coughing a lot patient does urinated once a day for last few days has not urinated patient blood pressure was 161/62 pulse rate 71 respiratory rate 20 on 4 L saturating 93% on arrival Related Data Home Medications Medication Instructions Recorded Confirmed buprenorphine 8 mg-naloxone 2 mg 2 strip sublingual DAILY 10/22/20 05/24/22 sublingual film (Suboxone) diltiazem HCl 180 mg 360 mg PO DAILY 10/22/20 05/24/22 capsule,extended release 24 hr bumetanide 2 mg tablet 2 mg PO DAILY 04/15/21 05/24/22 fluticasone propionate 110 1 puff inhalation BID 04/15/21 05/24/22 mcg/actuation HFA aerosol inhaler (Flovent HFA) melatonin 5 mg tablet 5 mg PO BEDTIME PRN Sleep 04/15/21 05/24/22 pantoprazole 40 mg tablet,delayed 40 mg PO DAILY 04/15/21 05/24/22 release vitamin B comp no.3-folic acid 1 1 tab PO DAILY 04/15/21 05/24/22 mg-vit C 60 mg-biotin 300 mcg tablet ([employer]) sennosides 8.6 mg tablet (senna) 1 - 2 tab PO BEDTIME PRN 05/11/21 05/24/22 constipation acetaminophen 500 mg tablet 500 mg PO Q8H PRN Pain, Mild 06/10/21 05/24/22 clonidine HCl 0.2 mg tablet 0.2 mg PO BID 07/27/21 05/24/22 insulin aspart U-100 100 unit/mL 1 sliding scale dose subcut 07/27/21 05/24/22 subcutaneous cartridge (Novolog USEASDIRECTD PenFill U-100 Insulin aspart) insulin glargine 100 unit/mL 7 unit subcut DAILY 09/18/21 05/24/22 subcutaneous solution (Lantus U-100 Insulin) aspirin 81 mg tablet,delayed 1 tab PO DAILY 10/11/21 05/24/22 release albuterol sulfate 90 mcg/actuation 2 puff inhalation Q4H PRN wheezing 01/31/22 05/24/22 aerosol inhaler (Ventolin HFA) diclofenac sodium 1 % topical gel 2 g topical BID 03/09/22 05/24/22 ondansetron 4 mg disintegrating 4 mg PO BID PRN nausea and vomiting 03/09/22 05/24/22 tablet carvedilol 6.25 mg tablet 1 tab PO BID 04/24/22 05/24/22 gabapentin 300 mg capsule 1 cap PO DAILY 04/24/22 05/24/22 hydralazine 50 mg tablet 2 tab PO TID 04/24/22 05/24/22 hydrocortisone 2.5 % topical cream 1 appl MO BID 04/24/22 05/24/22 with perineal applicator tiotropium bromide 18 mcg capsule 1 cap inhalation DAILY 04/24/22 05/24/22 with inhalation device (Spiriva with HandiHaler) albuterol sulfate 2.5 mg/3 mL 1 amp inhalation TID PRN Shortness 05/08/22 05/24/22 (0.083 %) solution for nebulization Of Breath Previous Rx's Medication Instructions Recorded amlodipine 10 mg tablet 10 mg PO BEDTIME #30 tabs 03/07/21 isosorbide mononitrate 30 mg 30 mg PO DAILY #30 tabs 09/20/21 tablet,extended release 24 hr docusate sodium 100 mg capsule 100 mg PO BID PRN Constipation #30 12/04/21 (Colace) caps diphenhydramine HCl 25 mg capsule 25 mg PO DAILY PRN allergy 04/30/22 (Benadryl) symptoms #30 caps polyethylene glycol 3350 17 17 g PO DAILY #238 grams 04/30/22 gram/dose oral powder (Miralax) acetaminophen 500 mg tablet 500 mg PO Q6H PRN fever or pain 05/29/22 #20 tabs lactulose 10 gram/15 mL oral 10 g (15 mL) PO DAILY PRN 07/03/22 solution constipation #237 mL Allergies Allergy/AdvReac Type Severity Reaction Status Date / Time No Known Allergies Allergy Mild NOT Verified 04/14/22 01:40 APPLICABLE Review of Systems Review of Systems: Yes all other systems are reviewed and are negative [facility] Past Medical History Medical History Acute exacerbation of chronic obstructive pulmonary disease (COPD) Acute GI bleeding Anasarca Anemia Anemia in chronic kidney disease Ascites Asthma with COPD with exacerbation Constipation COVID COVID-19 virus infection Diabetes mellitus End stage renal disease on dialysis ESRD (end stage renal disease) ESRD (end stage renal disease) Essential hypertension Heart failure with preserved ejection fraction Hypertension Hypertrophic cardiomyopathy Ischemic colitis Opioid withdrawal Pulmonary congestion Surgical History No pertinent past surgical history Family History Family History Other Hypertension Social History Social History Household Members: None Housing: Apartment Do you presently have visiting nurse or other home services: Yes Unable to assess alcohol history related to: Unknown Alcohol intake: never Patient Tobacco Use Status: Current everyday Tobacco user Tobacco use type: Cigarette Cigarette Packs Per Day: 1 Cigarettes Per Day: 4 Years Smoked: 18 Smoked in Last 30 Days: Yes e-Cigarette/Vaping Use: Never Used Second Hand Smoke Exposure: No Use of substances other than those prescribed or required for medical reasons: Yes Substance Use Type: Crack/Cocaine Substance Use Frequency: Chronic Longstanding Last Used Substance: Days (ago) Any prior treatment program specific to substance use: No Advance Directives: Yes Advance Directives on File: Yes Advance Directives Date on File: 04/17/22 service: No Current occupational status: unemployed and disabled Physical Exam ED Vital Signs: Vital Signs - 24 hr 07/10/22 03:27 07/10/22 04:07 07/10/22 05:22 Temperature 99.1 F 98.4 F Pulse Rate 71 71 70 Respiratory Rate 20 20 22 H Blood Pressure 161/62 H 149/62 H Pulse Oximetry 93 97 Oxygen Delivery Method Nasal Cannula Nasal Cannula Oxygen Flow Rate 4 07/10/22 05:29 07/10/22 06:03 07/10/22 06:13 Temperature 98.2 F Pulse Rate 73 Respiratory Rate 22 H 20 16 Blood Pressure 162/66 H Pulse Oximetry 89 L 92 Oxygen Delivery Method Room Air Nasal Cannula Oxygen Flow Rate 3 BMI result Body Mass Index 26.2 Appearance: Alert. Oriented X3. No acute distress. Eyes: PERRLA, No Nystagmus pallor+ ENT: Pharynx normal. Oral Mucosa moist Neck: Normal inspection. Neck supple. CVS: Normal heart rate and rhythm. Pulses normal. Respiratory: No respiratory distress. Equal air entry bilateral, bilateral wheezing with occasional crackles Abdomen: Soft and nontender. Bowel sounds are present, no mass palpable, no CVA tenderness Skin: Skin warm and dry. Normal skin color. Normal skin turgor. Extremities: No lower extremity edema. No calf tenderness Neuro: Oriented X 3. No motor deficit. No sensory deficit.No cerebellar signs , cranial nerves II-XII intact Medications Administered Discontinued Medications Generic Name Dose Route Start Last Admin Trade Name Freq PRN Reason Stop Dose Admin Albuterol Sulfate 5 mg 07/10/22 05:54 07/10/22 06:07 Albuterol Sulfate (0.083%) 2.5 Mg/3 Ml Vial.Neb INHALE 07/10/22 05:55 5 mg ONCE ONE Administration Albuterol Sulfate 2.5 mg/ 0 mg 07/10/22 03:54 07/10/22 04:05 Ipratropium [place] 0.5 mg INHALE 07/10/22 03:55 1 each ONCE ONE Administration Furosemide 80 mg 07/10/22 03:54 07/10/22 04:23 Furosemide 100 Mg/10 Ml Vial IVPUSH 07/10/22 03:55 80 mg ONCE ONE Administration Protocol Methylprednisolone Sodium Succinate 125 mg 07/10/22 06:04 07/10/22 06:13 Methylprednisolone Sod Succ 125 Mg/2 Ml Vial IVPUSH 07/10/22 06:05 125 mg ONCE ONE Administration Morphine Sulfate 4 mg 07/10/22 06:04 07/10/22 06:13 Morphine Sulfate 4 Mg/Ml Cartridge IVPUSH 07/10/22 06:05 4 mg ONCE ONE Administration Protocol Medical Decision Making Medical Decision Making MDM Narrative: Patient with end-stage renal disease with CHF with hypoxia requiring higher amount of oxygen will admit patient for further evaluation including dialysis patient clinical finding is CHF with fluid overload unlikely aspiration pneumonia as she has normal WBC count will do CT chest. Will admit patient for IV diuresis and early dialysis Consult Healthcare Provider Management of the patient was discussed with: Hospitalist Lab Data MDM Lab Attestation statement: I reviewed the patient's lab results. 07/10/22 04:18 07/10/22 04:18 Labs: Lab Results 07/10/22 07/10/22 07/10/22 Range/Units 04:18 04:18 04:18 WBC 9.1 (4.8-10.8) X10*3/uL RBC 3.23 L (4.20-5.50) X10*6/uL Hgb 9.9 L (12.0-16.0) g/dl Hct 30.0 L (37.0-47.0) % MCV 92.9 (80.0-98.0) fL MCH 30.7 (27.0-33.0) pg MCHC 33.0 (31.0-35.0) g/dl RDW 16.6 H (11.0-16.0) % Plt Count 165 (160-400) X10*3/uL MPV 9.3 L (9.4-12.3) fL Immature Gran % (Auto) 0.2 (0.0-0.4) % Neut % (Auto) 87.4 H (45-73) % Lymph % (Auto) 4.3 L (20-40) % [place] % (Auto) 6.1 (2-11) % Eos % (Auto) 1.8 (0-4) % Baso % (Auto) 0.2 (0-2) % Lymph # (Auto) 0.4 L (1.2-4.9) X10*3/uL [place] # (Auto) 0.6 (0.1-1.2) X10*3/uL Eos # (Auto) 0.2 (0.0-0.4) X10*3/uL Baso # (Auto) 0.0 (0.0-0.2) X10*3/uL Abs Immat Gran (auto) 0.02 (0.00-0.03) X10*3/uL Absolute Neuts (auto) 8.0 (2.0-8.3) x10*3/uL Absolute Nucleated RBC 0.000 (0.0-0.012) X10*3/uL Nucleated RBC % (auto) 0.0 (0.0-0.2) /100WBC PT (10.0-13.1) SEC INR (0.9-1.1) APTT (26.0-36.4) SEC Sodium 132 L (135-145) mmol/L Potassium 4.5 (3.3-5.1) mmol/L Chloride 91 L (96-108) mmol/L Carbon Dioxide 23 (22-29) mmol/L Anion Gap 23 H (12-20) BUN 42 H (9-16) mg/dL Creatinine 6.38 H* (0.5-1.4) mg/dL Estim Creat Clear Calc 7.3 Estimated GFR 7 Random Glucose 175 H (60-115) mg/dL Calcium 8.2 L D (8.4-10.2) mg/dL Total Bilirubin 0.5 (0.0-1.0) mg/dL AST 22 (5-31) U/L ALT 14 (0-31) U/L Alkaline Phosphatase 187 H (39-117) U/L Troponin I High Sens 41.6 H (<3.5-17.0) ng/L B-Natriuretic Peptide (<100) pg/mL Total Protein 7.1 (6.5-8.0) g/dL Albumin 4.1 (3.5-5.0) g/dL COVID-19 ([facility]STINA) (Negative) COVID-19 Clin Com 07/10/22 07/10/22 07/10/22 Range/Units 04:18 04:18 04:20 WBC (4.8-10.8) X10*3/uL RBC (4.20-5.50) X10*6/uL Hgb (12.0-16.0) g/dl Hct (37.0-47.0) % MCV (80.0-98.0) fL MCH (27.0-33.0) pg MCHC (31.0-35.0) g/dl RDW (11.0-16.0) % Plt Count (160-400) X10*3/uL MPV (9.4-12.3) fL Immature Gran % (Auto) (0.0-0.4) % Neut % (Auto) (45-73) % Lymph % (Auto) (20-40) % [place] % (Auto) (2-11) % Eos % (Auto) (0-4) % Baso % (Auto) (0-2) % Lymph # (Auto) (1.2-4.9) X10*3/uL [place] # (Auto) (0.1-1.2) X10*3/uL Eos # (Auto) (0.0-0.4) X10*3/uL Baso # (Auto) (0.0-0.2) X10*3/uL Abs Immat Gran (auto) (0.00-0.03) X10*3/uL Absolute Neuts (auto) (2.0-8.3) x10*3/uL Absolute Nucleated RBC (0.0-0.012) X10*3/uL Nucleated RBC % (auto) (0.0-0.2) /100WBC PT 9.9 L (10.0-13.1) SEC INR 0.9 (0.9-1.1) APTT 30.6 (26.0-36.4) SEC Sodium (135-145) mmol/L Potassium (3.3-5.1) mmol/L Chloride (96-108) mmol/L Carbon Dioxide (22-29) mmol/L Anion Gap (12-20) BUN (9-16) mg/dL Creatinine (0.5-1.4) mg/dL Estim Creat Clear Calc Estimated GFR Random Glucose (60-115) mg/dL Calcium (8.4-10.2) mg/dL Total Bilirubin (0.0-1.0) mg/dL AST (5-31) U/L ALT (0-31) U/L Alkaline Phosphatase (39-117) U/L Troponin I High Sens (<3.5-17.0) ng/L B-Natriuretic Peptide 3889 H (<100) pg/mL Total Protein (6.5-8.0) g/dL Albumin (3.5-5.0) g/dL COVID-19 ([facility]STINA) Negative (Negative) COVID-19 Clin Com See Note Independent Interpretation I performed an independent interpretation of an: EKG Interpretation: NSR heart rate 68 beats per minute LVH no acute ST T wave changes no acute ischemia Discharge Plan Discharge Clinical Impression: Congestive heart failure with left ventricular dysfunction, Acute hypoxemic respiratory failure, End stage chronic kidney disease Patient Disposition: Admitted As Inpatient
--- NOTE | 2022-07-10 03:53 | ECG_ITS ---
Test Reason : SOB Blood Pressure : / mmHG Vent. Rate : 068 BPM Atrial Rate : 068 BPM P-R Int : 158 ms QRS Dur : 090 ms QT Int : 444 ms P-R-T Axes : 018 -16 078 degrees QTc Int : 472 ms Normal sinus rhythm Voltage criteria for left ventricular hypertrophy ( R in aVL , Sokolow-Burton , [place] product ) Abnormal ECG When compared with ECG of 03-JUL-2022 11:09, No significant change was found Referred By: Damien Latif Electronically Signed By:SALVADOR SARABIA
[2022-07-10 04:21] LABS: MANUAL DIFF FLAG NO
[2022-07-10 04:23] LABS: Basophils Percent Auto 0.2 % (0-2); Eosinophils Absolute Auto 0.2 X10*3/uL (0.0-0.4); Eosinophils Percent Auto 1.8 % (0-4); Hemoglobin 9.9 g/dl (12.0-16.0); Imm Gran Abs Auto 0.02 X10*3/uL (0.00-0.03); Imm Gran Pct Auto 0.2 % (0.0-0.4); Lymphocytes Absolute Auto 0.4 X10*3/uL (1.2-4.9); Lymphocytes Percent Auto 4.3 % (20-40); Mean Corpuscular Hemoglobin 30.7 pg (27.0-33.0); Mean Corpuscular Volume 92.9 fL (80.0-98.0); Mean Platelet Volume 9.3 fL (9.4-12.3); Monocytes Absolute Auto 0.6 X10*3/uL (0.1-1.2); Monocytes Percent Auto 6.1 % (2-11); Neutrophils Percent Auto 87.4 % (45-73); Platelet Count 165 X10*3/uL (160-400); Red Blood Count 3.23 X10*6/uL (4.20-5.50); Red Cell Distribution Width 16.6 % (11.0-16.0); White Blood Count 9.1 X10*3/uL (4.8-10.8)
[2022-07-10] MEDS: Furosemide 100 MG/10 ML VIAL 80 MG IVPUSH (04:23)
[2022-07-10 04:29] LABS: INTERNATIONAL NORM RATIO 0.9 (0.9-1.1); Prothrombin Time 9.9 SEC (10.0-13.1)
[2022-07-10 04:31] LABS: Partial Thromboplastin Time 30.6 SEC (26.0-36.4)
[2022-07-10 04:39] LABS: COVID-19 Test Negative (Negative); IDNOW Serial# BCCEAD1C
[2022-07-10 04:43] LABS: Alanine Aminotransferase 14 U/L (0-31); Albumin Level 4.1 g/dL (3.5-5.0); Alkaline Phosphatase 187 U/L (39-117); Anion Gap 23 (12-20); Aspartate Amino Transferase 22 U/L (5-31); Bilirubin Total 0.5 mg/dL (0.0-1.0); Blood Urea Nitrogen 42 mg/dL (9-16); Calcium 8.2 mg/dL (8.4-10.2); Carbon Dioxide 23 mmol/L (22-29); Chloride 91 mmol/L (96-108); Creatinine Clr Calc Pharmacy 7.3; Estimated Glomerular Filt Rate 7; Glucose Random 175 mg/dL (60-115); Potassium 4.5 mmol/L (3.3-5.1); Sodium 132 mmol/L (135-145); Total Protein 7.1 g/dL (6.5-8.0)
[2022-07-10 04:44] LABS: B Type Natriuretic Peptide 3889 pg/mL (<100); Troponin-I High Sensitivity 41.6 ng/L (<3.5-17.0)
[2022-07-10] MEDS: Albuterol Sulfate (0.083%) 2.5 MG/3 ML VIAL.NEB 5 MG INHALE (06:07)
[2022-07-10] MEDS: Morphine Sulfate 4 MG/ML CARTRIDGE IVPUSH (06:13)
[2022-07-10] MEDS: methylPREDNISolone Sod Succ 125 MG/2 ML VIAL IVPUSH (06:13)
--- NOTE | 2022-07-10 08:44 | PC.NURSE ---
sat 96% on 4L NC. Wheezes and rhonchi throughout lungs. will continue to monitor
--- NOTE | 2022-07-10 08:48 | PC.NURSE ---
pt requesting breakfast and pain medication. Dr. Bai aware. Awaiting Hospitalist orders.
--- NOTE | 2022-07-10 09:18 | PC.NURSE ---
pt continues to ring for food and pain medications, Dr. Combs the admitting hospitalist has just come to the ED to speak with the patient and will put in orders shortly.
--- NOTE | 2022-07-10 09:26 | P.HPHOSP_ITS ---
History of Present Illness Date of Service: 07/10/22 Chief Complaint: luq pain The patient is a 67 year old F with a PMH as outlined below who presents to the ED with multiple complaints. The patient reports she has been having LUQ pain for the last 2 weeks. She is a vague historian regarding this, initially stating that the pain is constant and subsequently stating thgat it comes and goes. She reports associated nausea and vomiting - non-bloody/nonbiliious. Denies diarrhea, reports constipation. States the pain is better with eating. She denies any fever or chills. No known sick contacts. Upon further questioning, she reports productive cough and sob which began 1-2 days ago. She denies anginal chest pain. Apparently, the patient is supposed to be on 1L O2 at baseline, but reoportedly when found by EMS, she was without O2 and saturating in the 80s. She is requiring 3L to maintain saturations above 90. Work up in the ED showed an abnormal CXR showing RML infiltrate and smaller region in the ZACKARY. Review of Systems Review of Systems: negative except HPI [facility] Medical History Acute exacerbation of chronic obstructive pulmonary disease (COPD) Acute GI bleeding Anasarca Anemia Anemia in chronic kidney disease Ascites Asthma with COPD with exacerbation Constipation COVID COVID-19 virus infection Diabetes mellitus End stage renal disease on dialysis ESRD (end stage renal disease) ESRD (end stage renal disease) Essential hypertension Heart failure with preserved ejection fraction Hypertension Hypertrophic cardiomyopathy Ischemic colitis Opioid withdrawal Pulmonary congestion Family History Other Hypertension Surgical History No pertinent past surgical history Social History Household Members: None Housing: Apartment Do you presently have visiting nurse or other home services: Yes Unable to assess alcohol history related to: Unknown Alcohol intake: never Patient Tobacco Use Status: Never used Tobacco Tobacco use type: Cigarette Cigarette Packs Per Day: 1 Cigarettes Per Day: 4 Years Smoked: 18 Smoked in Last 30 Days: Yes e-Cigarette/Vaping Use: Never Used Second Hand Smoke Exposure: No Use of substances other than those prescribed or required for medical reasons: Yes Substance Use Type: Crack/Cocaine Substance Use Frequency: Chronic Longstanding Last Used Substance: Days (ago) Any prior treatment program specific to substance use: No Advance Directives: Yes Advance Directives on File: Yes Advance Directives Date on File: 04/17/22 Nutrition Risks: No Nutritional Risk service: No Current occupational status: unemployed and disabled Meds Allergies Allergy/AdvReac Type Severity Reaction Status Date / Time No Known Allergies Allergy Mild NOT Verified 04/14/22 01:40 APPLICABLE Active Medications: Current Medications Pharmacy Consult (Consult Rx Perform Med Rec) 1 each MISCELLANE ONCE PRN PRN Reason: Consult order Home Medications Medication Instructions Recorded Confirmed Last Taken Type buprenorphine 8 mg-naloxone 2 mg 2 strip sublingual DAILY 10/22/20 07/10/22 05/06/22 History sublingual film (Suboxone) diltiazem HCl 180 mg 360 mg PO DAILY 10/22/20 07/10/22 05/06/22 History capsule,extended release 24 hr bumetanide 2 mg tablet 2 mg PO DAILY 04/15/21 07/10/22 05/06/22 History fluticasone propionate 110 1 puff inhalation BID 04/15/21 07/10/22 Unknown History mcg/actuation HFA aerosol inhaler (Flovent HFA) melatonin 5 mg tablet 5 mg PO BEDTIME PRN Sleep 04/15/21 07/10/22 Unknown History pantoprazole 40 mg tablet,delayed 40 mg PO DAILY 04/15/21 07/10/22 05/06/22 History release vitamin B comp no.3-folic acid 1 1 tab PO DAILY 04/15/21 07/10/22 05/06/22 History mg-vit C 60 mg-biotin 300 mcg tablet ([employer]) sennosides 8.6 mg tablet (senna) 1 - 2 tab PO BEDTIME PRN 05/11/21 07/10/22 Unknown History constipation clonidine HCl 0.2 mg tablet 0.2 mg PO BID 07/27/21 07/10/22 05/06/22 History aspirin 81 mg tablet,delayed 1 tab PO DAILY 10/11/21 07/10/22 05/06/22 History release albuterol sulfate 90 mcg/actuation 2 puff inhalation Q4H PRN wheezing 01/31/22 07/10/22 Unknown History aerosol inhaler (Ventolin HFA) diclofenac sodium 1 % topical gel 2 g topical BID 03/09/22 07/10/22 05/06/22 History ondansetron 4 mg disintegrating 4 mg PO BID PRN nausea and vomiting 03/09/22 07/10/22 Unknown History tablet carvedilol 6.25 mg tablet 1 tab PO BID 04/24/22 07/10/22 05/06/22 History gabapentin 300 mg capsule 1 cap PO DAILY 04/24/22 07/10/22 05/06/22 History tiotropium bromide 18 mcg capsule 1 cap inhalation DAILY 04/24/22 07/10/22 Unknown History with inhalation device (Spiriva with HandiHaler) albuterol sulfate 2.5 mg/3 mL 1 amp inhalation TID PRN Shortness 05/08/22 07/10/22 Unknown History (0.083 %) solution for nebulization Of Breath amlodipine 10 mg tablet 10 mg PO DAILY 07/10/22 07/10/22 Unknown History hydralazine 100 mg tablet 100 mg PO TID 07/10/22 07/10/22 Unknown History isosorbide dinitrate 30 mg tablet 30 mg PO TID 07/10/22 07/10/22 Unknown History Physical Exam Vital Signs and Narrative: Vital Signs: Last Vital Signs Temp 98.2 F 07/10/22 08:38 Pulse 76 07/10/22 08:38 Resp 12 07/10/22 08:38 BP 178/91 H 07/10/22 08:38 Pulse Ox 91 L 07/10/22 08:38 O2 Del Method 07/10/22 08:38 O2 Flow Rate 4 07/10/22 08:38 Oxygen Flow Rate 2 07/10/22 03:27 BMI result Body Mass Index 26.2 Const: Other: Constitutional - Awake and Alert, appears uncomfortable Eyes - PERRLA, EOMI Cardiovascular - S1S2, RRR, No edema Respiratory - scattered rhonchi and rales; comfortable on 4L O2 Gastrointestinal - NT / ND; +BS; LUEQ ttp without rebounding or guarding - No CVA tenderness Extremities - no calf tenderness bilaterally, no swelling Musculoskeletal - Normal inspection, normal ROM Skin - Warm/Dry Neurological - Alert & oriented x3, No focal deficit Psychological - Appropriate affect Results Labs 07/10/22 04:18 07/10/22 04:18 Labs: Laboratory Results - last 24 hr 07/10/22 07/10/22 07/10/22 04:18 04:18 04:18 MCV 92.9 MCH 30.7 MCHC 33.0 RDW 16.6 H Plt Count 165 MPV 9.3 L Immature Gran % (Auto) 0.2 Neut % (Auto) 87.4 H Lymph % (Auto) 4.3 L [place] % (Auto) 6.1 Eos % (Auto) 1.8 Baso % (Auto) 0.2 Lymph # (Auto) 0.4 L [place] # (Auto) 0.6 Eos # (Auto) 0.2 Baso # (Auto) 0.0 Abs Immat Gran (auto) 0.02 Absolute Neuts (auto) 8.0 Absolute Nucleated RBC 0.000 Nucleated RBC % (auto) 0.0 PT INR APTT Anion Gap 23 H Estim Creat Clear Calc 7.3 Estimated GFR 7 Random Glucose 175 H Calcium 8.2 L D Total Bilirubin 0.5 AST 22 ALT 14 Alkaline Phosphatase 187 H Troponin I High Sens 41.6 H B-Natriuretic Peptide Total Protein 7.1 Albumin 4.1 COVID-19 ([facility]) COVID-Tandem Com 07/10/22 07/10/22 07/10/22 04:18 04:18 04:20 MCV MCH MCHC RDW Plt Count MPV Immature Gran % (Auto) Neut % (Auto) Lymph % (Auto) [place] % (Auto) Eos % (Auto) Baso % (Auto) Lymph # (Auto) [place] # (Auto) Eos # (Auto) Baso # (Auto) Abs Immat Gran (auto) Absolute Neuts (auto) Absolute Nucleated RBC Nucleated RBC % (auto) PT 9.9 L INR 0.9 APTT 30.6 Anion Gap Estim Creat Clear Calc Estimated GFR Random Glucose Calcium Total Bilirubin AST ALT Alkaline Phosphatase Troponin I High Sens B-Natriuretic Peptide 3889 H Total Protein Albumin COVID-19 ([facility]STINA) Negative COVID-19 Clin Com See Note Imaging Radiologist's Impressions: Impressions Chest X-Ray 07/10/22 05:45 IMPRESSION: Hazy right perihilar opacity could represent atelectasis or pneumonia. Aspiration possible. Assessment and Plan (1) Congestive heart failure with left ventricular dysfunction: Status: Acute (2) Acute hypoxemic respiratory failure: Status: Acute Plan 67 yo F with a PMH of ESRD on HD MWF, HTN, chronic opiate dependence on suboxone, DM, HFpEF who presents with multiple complaints. Work up on the ED reveals fluid overload secondary to CHF and ESRD + multilobar pneumonia. She will be admitted for further work up. 1. Multilobar pneumonia CT imaging with RML and ZACKARY infiltrates -- read as favoring pneumonia over atelectasis will start IV cefepime + doxy patient does not have severe sepsis at this time 2. Acute on chronic respiraotyr failure with hypoxia due to #1 + fluid overload from CHF/ESRD continue 4L O2, wean as tolerated to her baseline (reportedly 1L) 3. Acute HFpEF plan for dialysis urgently, continue diuretics 4. ESRD on HD plan for urgent dialysis nephrology consult 5.DM ? doesnt appear to be on home meds check a1c hold off meds and start with POC qidac 6. HTN on multiple meds at home, continue and titrate as needed 7. LUQ abdominal pain unable to determine etiology from history; will check ct abd/pelvis Full Code DVT pptx, subcut. heparin Given patient's multiple chronic co-morbidities + current respiratory failure and pneumonia, I anticipate she will require an inpatient hospitalization which is likely to span at least 2 midnights for treatment with IV antibiotics + urgent dialysis + evaluation of her LUQ pain. Time Spent With Patient Time: Total time managing care of this patient today ____ minutes. Quality Stroke Does the patient have a stroke diagnosis?: No VTE Prior VTE?: No VTE Risk Level:: Medical - moderate - high VTE Device Contraindication: Treatment Not Indicated VTE Drug Contraindication: N/A - Med Ordered
--- NOTE | 2022-07-10 09:32 | PM.CNNEP ---
History of Present Illness Reason for Consult Consult date: 07/10/22 Reason for consult: ESRD Chief Complaint Chief complaint: abdominal pain History of Present Illness Narrative: 67 yrs old with history of COPD, ESRD on HD, TTHS, diabetes, HFpEF, ischemic colitis , on home oxygen 1 L comes here for increased cough and pain all over the back nausea headache and shortness of breath all day yesterday patient is supposed to be on 1 L of oxygen 24 hours prior to arrival she walked from inside of the house to the ambulance without oxygen and pulse ox dropped to 80s,? improved to high 90s after oxygen was placed patient been coughing a lot patient does urinated once a day for last few days has not urinated patient blood pressure was 161/62 pulse rate 71 respiratory rate 20 on 4 L saturating 93% on arrival Usually gets Dialysis in Shock Dialysis on Review of Systems Constitutional: Denies body ache(s) Denies dysphagia and Denies vertigo Cardiovascular: Denies chest pain at rest, Denies syncope and Reports dyspnea Respiratory: Reports dyspnea Gastrointestinal: Denies belching, Denies coffee ground emesis, Denies dysphagia and Denies vomiting Genitourinary: Denies hematuria Denies confusion, Denies vertigo and Denies syncope Psychiatric: Denies confusion PMFSH Past Medical History Medical History Acute exacerbation of chronic obstructive pulmonary disease (COPD) Acute GI bleeding Anasarca Anemia Anemia in chronic kidney disease Ascites Asthma with COPD with exacerbation Constipation COVID COVID-19 virus infection Diabetes mellitus End stage renal disease on dialysis ESRD (end stage renal disease) ESRD (end stage renal disease) Essential hypertension Heart failure with preserved ejection fraction Hypertension Hypertrophic cardiomyopathy Ischemic colitis Opioid withdrawal Pulmonary congestion Family History Family History Other Hypertension Surgical History Surgical History No pertinent past surgical history Social History Social History Household Members: None Housing: House Do you presently have visiting nurse or other home services: Yes Unable to assess alcohol history related to: Unknown Alcohol intake: never Patient Tobacco Use Status: Current everyday Tobacco user Tobacco use type: Cigarette Cigarette Packs Per Day: 1 Cigarettes Per Day: 1 Years Smoked: 18 Smoked in Last 30 Days: Yes e-Cigarette/Vaping Use: Never Used Patient Interested in Nicotine Replacement: Yes Second Hand Smoke Exposure: No Use of substances other than those prescribed or required for medical reasons: No Substance Use Type: Crack/Cocaine Substance Use Frequency: Chronic Longstanding Last Used Substance: Days (ago) Currently Displaying Signs/Symptoms of Drug Intoxication Withdrawal: No Any prior treatment program specific to substance use: No Have you been hit, kicked, punched, or otherwise hurt by someone within the past year? If so, by whom?: No Do you feel safe in your current relationship?: Yes Is there a partner from a previous relationship who is making you feel unsafe now?: No Are you made to feel afraid or neglected: No Advance Directives: Yes Advance Directives on File: Yes Advance Directives Date on File: 04/17/22 Do you have thoughts of harming others: None Do you have a plan to hurt others: No Plan Recently lost weight without trying: Yes How much weight loss: 14-23 pounds Eating poorly because of decreased appetite: Yes Nutrition screen score: 5 Nutrition Risks: No Nutritional Risk Patient : No : No Poor oral hygiene: No service: No Current occupational status: unemployed and disabled Meds Allergies Allergy/AdvReac Type Severity Reaction Status Date / Time No Known Allergies Allergy Mild NOT Verified 04/14/22 01:40 APPLICABLE Active Medications: Current Medications Acetaminophen (Acetaminophen 325 Mg Tablet) 650 mg PO Q6H PRN PRN Reason: Pain, Mild (Pain Scale 1-3) Hydromorphone HCl (Hydromorphone Hcl 0.5 Mg/0.5 Ml Syringe) 0.5 mg IVPUSH Q4H PRN; Protocol PRN Reason: Pain, Severe (Pain Scale 7-10) Ondansetron HCl (Ondansetron Hcl 4 Mg/2 Ml Vial) 4 mg IVPUSH Q8H PRN PRN Reason: Nausea and Vomiting Pharmacy Consult (Consult Rx Perform Med Rec) 1 each MISCELLANE ONCE PRN PRN Reason: Consult order Sodium Chloride (0.9 % Sodium Chloride Flush 3 Ml Syringe) 3 ml IVFLUSH [facility] Medications Medication Instructions Recorded Confirmed Last Taken Type buprenorphine 8 mg-naloxone 2 mg 2 strip sublingual DAILY 06/09/0807/10/22 05/06/22 History sublingual film (Suboxone) diltiazem HCl 180 mg 360 mg PO DAILY 10/22/20 07/10/22 05/06/22 History capsule,extended release 24 hr bumetanide 2 mg tablet 2 mg PO DAILY 04/15/21 07/10/22 05/06/22 History fluticasone propionate 110 1 puff inhalation BID 04/15/21 07/10/22 Unknown History mcg/actuation HFA aerosol inhaler (Flovent HFA) melatonin 5 mg tablet 5 mg PO BEDTIME PRN Sleep 04/15/21 07/10/22 Unknown History pantoprazole 40 mg tablet,delayed 40 mg PO DAILY 04/15/21 07/10/22 05/06/22 History release vitamin B comp no.3-folic acid 1 1 tab PO DAILY 04/15/21 07/10/22 05/06/22 History mg-vit C 60 mg-biotin 300 mcg tablet ([employer]) sennosides 8.6 mg tablet (senna) 1 - 2 tab PO BEDTIME PRN 05/11/21 07/10/22 Unknown History constipation clonidine HCl 0.2 mg tablet 0.2 mg PO BID 07/27/21 07/10/22 05/06/22 History aspirin 81 mg tablet,delayed 1 tab PO DAILY 10/11/21 07/10/22 05/06/22 History release albuterol sulfate 90 mcg/actuation 2 puff inhalation Q4H PRN wheezing 01/31/22 07/10/22 Unknown History aerosol inhaler (Ventolin HFA) diclofenac sodium 1 % topical gel 2 g topical BID 03/09/22 07/10/22 05/06/22 History ondansetron 4 mg disintegrating 4 mg PO BID PRN nausea and vomiting 03/09/22 07/10/22 Unknown History tablet carvedilol 6.25 mg tablet 1 tab PO BID 04/24/22 07/10/22 05/06/22 History gabapentin 300 mg capsule 1 cap PO DAILY 04/24/22 07/10/22 05/06/22 History tiotropium bromide 18 mcg capsule 1 cap inhalation DAILY 04/24/22 07/10/22 Unknown History with inhalation device (Spiriva with HandiHaler) albuterol sulfate 2.5 mg/3 mL 1 amp inhalation TID PRN Shortness 05/08/22 07/10/22 Unknown History (0.083 %) solution for nebulization Of Breath amlodipine 10 mg tablet 10 mg PO DAILY 07/10/22 07/10/22 Unknown History hydralazine 100 mg tablet 100 mg PO TID 07/10/22 07/10/22 Unknown History isosorbide dinitrate 30 mg tablet 30 mg PO TID 07/10/22 07/10/22 Unknown History Physical Exam Vital Signs: Last Vital Signs Temp 98.2 F 07/10/22 08:38 Pulse 76 07/10/22 08:38 Resp 12 07/10/22 08:38 BP 178/91 H 07/10/22 08:38 Pulse Ox 91 L 07/10/22 08:38 O2 Del Method 07/10/22 08:38 O2 Flow Rate 4 07/10/22 08:38 Oxygen Flow Rate 2 07/10/22 03:27 BMI result Body Mass Index 26.2 ?Appearance: Alert.? Oriented X3.? No acute distress. Eyes: PERRLA, No Nystagmus pallor+ ENT: Pharynx normal. Oral Mucosa moist Neck: Normal inspection.? Neck supple. CVS: Normal heart rate and rhythm.? Pulses normal. Respiratory: No respiratory distress.? Equal air entry bilateral, bilateral wheezing with occasional crackles Abdomen: Soft and nontender.? Bowel sounds are present, no mass palpable, no CVA tenderness Skin: Skin warm and dry.? Normal skin color.? Normal skin turgor. Extremities: No lower extremity edema.? No calf tenderness Const General: No confusion Orientation/consciousness: No confusion Neuro General: No confusion Results Lab Results 07/10/22 04:18 07/10/22 04:18 Lab results: Chemistry 07/10/22 04:18 Sodium 132 L Potassium 4.5 Carbon Dioxide 23 BUN 42 H Creatinine 6.38 H* Calcium 8.2 L D Hematology 07/10/22 04:18 WBC 9.1 Hgb 9.9 L Plt Count 165 Assessment and Plan (1) End stage chronic kidney disease: Status: Acute Plan ESRD with fluid overload No ss of uremia Plan HD today Remove fluid as tolerated low salt diet Keep her on TTS schedule and may need to add extra treatment on Sunday as out patient OK to [facility] Post HD if stable. Time Spent With Patient Time: Total time managing care of this patient today ____ minutes. Procedures Date of Service Date of Service: 07/10/22
[2022-07-10] MEDS: HYDROmorphone HCl 0.5 MG/0.5 ML SYRINGE IVPUSH ×3 (09:53→21:44)
--- NOTE | 2022-07-10 09:56 | PC.NURSE ---
pt medicated for pain per order.
[2022-07-10] MEDS: Nicotine 21 MG PATCH.TD24 TRANSDERMA (10:17)
--- NOTE | 2022-07-10 10:18 | PC.NURSE ---
nicotine patch applied per order
--- NOTE | 2022-07-10 10:23 | PHA.MEDREC ---
MED REC COMPLETED VIA B[facility] P[facility] Pharmacy Consult ? Medication Reconciliation Pharmacy has completed the medication reconciliation.
[2022-07-10] MEDS: Buprenorphine/Naloxone 8/2 mg FILM 2 FILM SUBLINGUAL (11:32)
[2022-07-10 11:40] LABS: Procalcitonin 0.82 ng/mL
--- NOTE | 2022-07-10 11:43 | PC.NURSE ---
suboxone- pt only wanted 1 suboxone film as she stated she took one earlier at home, 1 suboxone was given and 1 returned with luis miguel to [facility]. pt currently in dialysis
[2022-07-10 11:51] LABS: Estimated Average Glucose 105 mg/dL; Hemoglobin A1c % 5.3 %
[2022-07-10] MEDS: diphenhydrAMINE HCL 25 MG CAPSULE PO (13:48)
[2022-07-10] MEDS: ondansetron HCL 4 MG/2 ML VIAL IVPUSH ×2 (13:48→23:13)
[2022-07-10] MEDS: hydrALAZINE HCl 50 MG TABLET 100 MG PO ×2 (16:36→19:40)
[2022-07-10] MEDS: 0.9 % Sodium Chloride Flush 3 ML SYRINGE IVFLUSH ×2 (16:37→21:46)
[2022-07-10] MEDS: Isosorbide Dinitrate 10 MG TABLET 30 MG PO ×2 (16:37→19:40)
[2022-07-10 16:43] LABS: Glucose, Whole Blood 188 mg/dL (60-115)
[2022-07-10] MEDS: cefEPime HCl 1 GM in 0.9 % Sodium Chloride 50 ML IV (17:19)
[2022-07-10] MEDS: Acetaminophen 325 MG TABLET 650 MG PO (18:06)
[2022-07-10] MEDS: carvediloL 6.25 MG TABLET PO (19:40)
[2022-07-10] MEDS: cloNIDine HCL 0.2 MG TABLET PO (19:40)
[2022-07-10 20:30] LABS: Glucose, Whole Blood 185 mg/dL (60-115)
[2022-07-10] MEDS: Doxycycline Hyclate 100 MG in 0.9 % Sodium Chloride 250 ML 166.67 MG IV (21:44)
[2022-07-10] MEDS: Albuterol Sulfate (0.083%) 2.5 MG/3 ML VIAL.NEB INHALE (22:25)
--- NOTE | 2022-07-10 23:05 | PC.NURSE ---
Patient stating i dont feel good . C/O SOB, 02 sat 92% on 4.5 L NC, updraft treatment administered. Patient restless, yelling out, continuously ringing call bed and sitting on edge of bed. Patient re directed and repositioned back into bed continuously. Bed alarm in place for safety. HR 116-120s sinus tach. MD notified of increased anxiety. New order for 1 x dose of 1mg IV ativan to be administered.
[2022-07-10] MEDS: LORazepam 2 MG/ML VIAL 1 MG IVPUSH (23:30)
[2022-07-10] MEDS: cloNIDine HCL 0.1 MG TABLET PO (23:31)
[2022-07-11] VITALS (7 sets, daily range): BP systolic 163–190; BP diastolic 78–98; PULSE 81–111; RESP 14–24; TEMP 36.1–37.2; O2SAT 92–98
[2022-07-11] MEDS: Heparin Sodium,Porcine 5,000 UNIT/ML VIAL 5000 UNIT SUBCUT ×2 (00:28→14:01)
[2022-07-11] MEDS: Albuterol Sulfate (0.083%) 2.5 MG/3 ML VIAL.NEB INHALE ×2 (04:17→07:32)
--- NOTE | 2022-07-11 05:11 | ECG_ITS ---
Test Reason : hypertensive, ? peaked T waves Blood Pressure : / mmHG Vent. Rate : 081 BPM Atrial Rate : 081 BPM P-R Int : 174 ms QRS Dur : 090 ms QT Int : 406 ms P-R-T Axes : 058 -14 066 degrees QTc Int : 471 ms Artifact in tracing Normal sinus rhythm Right atrial enlargement Voltage criteria for left ventricular hypertrophy ( R in aVL , Sokolow-Burton , [place] product ) Abnormal ECG When compared with ECG of 10-JUL-2022 03:59, No significant change was found Referred By: Robert Torres Electronically Signed By:SALVADOR SARABIA
[2022-07-11] MEDS: Omeprazole 20 MG CAPSULE.DR PO (06:41)
[2022-07-11] MEDS: amLODIPine Besylate 10 MG TABLET PO (06:41)
[2022-07-11] MEDS: carvediloL 6.25 MG TABLET PO (06:41)
[2022-07-11 06:42] LABS: Anion Gap 18 (12-20); Blood Urea Nitrogen 27 mg/dL (9-16); Calcium 8.2 mg/dL (8.4-10.2); Carbon Dioxide 22 mmol/L (22-29); Chloride 94 mmol/L (96-108); Creatinine Clr Calc Pharmacy 9.6; Estimated Glomerular Filt Rate 10; Glucose Random 173 mg/dL (60-115); Potassium 4.5 mmol/L (3.3-5.1); Sodium 129 mmol/L (135-145)
[2022-07-11] MEDS: polyethylene glycoL 3350 17 GM POWD.PACK PO (07:41)
[2022-07-11] MEDS: Buprenorphine/Naloxone 8/2 mg FILM 2 FILM SUBLINGUAL (07:41)
[2022-07-11] MEDS: Nicotine 21 MG PATCH.TD24 TRANSDERMA (07:41)
[2022-07-11] MEDS: dilTIAZem HCL CD 180 MG CAP.ER.24H 360 MG PO (07:41)
[2022-07-11] MEDS: Bumetanide 1 MG TABLET 2 MG PO (07:42)
[2022-07-11] MEDS: Multivitamin TABLET 1 TAB PO (07:42)
[2022-07-11] MEDS: Aspirin Enteric Coated 81 MG TABLET.DR PO (07:42)
[2022-07-11] MEDS: Isosorbide Dinitrate 10 MG TABLET 30 MG PO ×2 (07:42→14:00)
[2022-07-11] MEDS: Gabapentin 300 MG CAPSULE PO (07:42)
[2022-07-11] MEDS: hydrALAZINE HCl 50 MG TABLET 100 MG PO ×2 (07:43→14:01)
[2022-07-11] MEDS: HYDROmorphone HCl 0.5 MG/0.5 ML SYRINGE IVPUSH (07:43)
[2022-07-11] MEDS: cloNIDine HCL 0.2 MG TABLET PO (07:43)
[2022-07-11] MEDS: 0.9 % Sodium Chloride Flush 3 ML SYRINGE IVFLUSH ×2 (07:44→14:02)
[2022-07-11 08:01] LABS: Glucose, Whole Blood 147 mg/dL (60-115)
[2022-07-11] MEDS: Fluticasone Propionate 100 MCG BLST.W.DEV 1 PUFF INHALE (09:22)
--- NOTE | 2022-07-11 10:07 | W.PM.DNNEP ---
Subjective Subjective This patient was seen during dialysis. Physical Exam Vital Signs: Vital Signs: Last Vital Signs Temp 98.4 F 07/11/22 07:16 Pulse 92 07/11/22 07:35 Resp 24 H 07/11/22 07:35 BP 163/78 H 07/11/22 07:16 Pulse Ox 96 07/11/22 07:16 O2 Del Method 07/11/22 07:16 O2 Flow Rate 2 07/11/22 07:16 Oxygen Flow Rate 2 07/10/22 03:27 BMI result Body Mass Index 22.3 Const: General: No confusion Orientation/consciousness: No confusion Neuro: General: No confusion Assessment & Plan Assessment and plan (1) End stage chronic kidney disease: Status: Acute Plan ESRD with fluid overload No ss of uremia Plan HD today Remove fluid as tolerated low salt diet Keep her on TTS schedule and may need to add extra treatment on Sunday as out patient OK to [facility] Post HD if stable. Time Spent With Patient Time: Total time managing care of this patient today ____ minutes. Procedures Date of Service Date of Service: 07/11/22
--- NOTE | 2022-07-11 10:45 | P.PNIM_ITS ---
Subjective Subjective Date of Service: 07/11/22 Interval History: Follow up CAP. CHF feeling better but still with some sob Review of Systems Review of Systems: Yes all other systems are reviewed and are negative Physical Exam Vital Signs: Vital Signs: Last Vital Signs Temp 98.4 F 07/11/22 07:16 Pulse 92 07/11/22 07:35 Resp 24 H 07/11/22 07:35 BP 163/78 H 07/11/22 07:16 Pulse Ox 96 07/11/22 07:16 O2 Del Method 07/11/22 07:16 O2 Flow Rate 2 07/11/22 07:16 Oxygen Flow Rate 2 07/10/22 03:27 BMI result Body Mass Index 22.3 Appearing in no acute distress lung sounds are clear to auscultation heart regular rate rhythm, clear S1, S2 positive bowel sounds, abdomen is soft, nontender neuro patient is alert x3, no focal deficits Objective Data Active Medications Acetaminophen (Acetaminophen 325 Mg Tablet) 650 mg PO Q6H PRN PRN Reason: Pain, Mild (Pain Scale 1-3) Last Admin: 07/10/22 18:06 Dose: 650 mg Documented By: SALLY Albuterol Sulfate (Albuterol Sulfate (0.083%) 2.5 Mg/3 Ml Vial.Neb) 2.5 mg INHALE TID PRN PRN Reason: Shortness Of Breath Last Admin: 07/11/22 07:32 Dose: 2.5 mg Documented By: ZORAIDA Amlodipine Besylate (Amlodipine Besylate 10 Mg Tablet) 10 mg PO DAILY [facility]; Protocol Last Admin: 07/11/22 06:41 Dose: 10 mg Documented By: HUBERT Comments: per Brian, give now for HTN Aspirin (Aspirin Enteric Coated 81 Mg Tablet.) 81 mg PO DAILY [facility] Last Admin: 07/11/22 07:42 Dose: 81 mg Documented By: GABE Bumetanide (Bumetanide 1 Mg Tablet) 2 mg PO DAILY [facility]; Protocol Last Admin: 07/11/22 07:42 Dose: 2 mg Documented By: GABE Buprenorphine/Naloxone (Buprenorphine/Naloxone 8/2 Mg Film) 2 film SUBLINGUAL DAILY [facility] Last Admin: 07/11/22 07:41 Dose: 2 film Documented By: GABE Carvedilol (Carvedilol 6.25 Mg Tablet) 6.25 mg PO BID [facility]; Protocol Last Admin: 07/11/22 06:41 Dose: 6.25 mg Documented By: HUBERT Comments: per Brian, give now for HTN Clonidine HCl (Clonidine Hcl 0.2 Mg Tablet) 0.2 mg PO BID [facility]; Protocol Last Admin: 07/11/22 07:43 Dose: 0.2 mg Documented By: GABE Diltiazem HCl (Diltiazem Hcl Cd 180 Mg Cap.Er.24h) 360 mg PO DAILY [facility]; Protocol Last Admin: 07/11/22 07:41 Dose: 360 mg Documented By: GABE Diphenhydramine HCl (Diphenhydramine Hcl 25 Mg Capsule) 25 mg PO DAILY PRN PRN Reason: allergy symptoms Last Admin: 07/10/22 13:48 Dose: 25 mg Documented By: SALLY Docusate Sodium (Docusate Sodium 100 Mg Capsule) 100 mg PO BID PRN PRN Reason: Constipation Fluticasone Propionate (Fluticasone Propionate 100 Mcg Blst.W.Dev) 1 puff INHALE RBID [facility] Last Admin: 07/11/22 09:22 Dose: 1 puff Documented By: BONY Gabapentin (Gabapentin 300 Mg Capsule) 300 mg PO DAILY [facility] Last Admin: 07/11/22 07:42 Dose: 300 mg Documented By: GABE Heparin Sodium (Porcine) (Heparin Sodium,Porcine 5,000 Unit/Ml Vial) 5,000 unit SUBCUT Q12H [facility] Last Admin: 07/11/22 00:28 Dose: 5,000 unit Documented By: NANI Hydralazine HCl (Hydralazine Hcl 50 Mg Tablet) 100 mg PO TID [facility]; Protocol Last Admin: 07/11/22 07:43 Dose: 100 mg Documented By: GABE Hydromorphone HCl (Hydromorphone Hcl 0.5 Mg/0.5 Ml Syringe) 0.5 mg IVPUSH Q4H PRN; Protocol PRN Reason: Pain, Severe (Pain Scale 7-10) Last Admin: 07/11/22 07:43 Dose: 0.5 mg Documented By: GABE Cefepime HCl 1 gm/ Sodium (Chloride) 50 mls @ 100 mls/hr IV Q24H [facility] Last Infusion: 07/10/22 17:56 Dose: 0 mls/hr Documented By: SALLY Doxycycline Hyclate 100 mg/ (Sodium Chloride) 250 mls @ 166.67 mls/hr IV Q12H [facility] Last Infusion: 07/10/22 23:32 Dose: 0 mls/hr Documented By: NANI Isosorbide Dinitrate (Isosorbide Dinitrate 10 Mg Tablet) 30 mg PO TID [facility]; Protocol Last Admin: 07/11/22 07:42 Dose: 30 mg Documented By: GABE Lactulose (Lactulose 20 Gm/30 Ml Solution) 10 gm PO DAILY PRN PRN Reason: constipation Melatonin (Melatonin 3 Mg Tablet) 6 mg PO BEDTIME PRN PRN Reason: Sleep Multivitamins/Vitamin C (Multivitamin Tablet) 1 tab PO DAILY [facility] Last Admin: 07/11/22 07:42 Dose: 1 tab Documented By: GABE Nicotine (Nicotine 21 Mg Patch.Td24) 21 mg TRANSDERMA DAILY [facility] Last Admin: 07/11/22 07:41 Dose: 21 mg Documented By: GABE Omeprazole (Omeprazole 20 Mg Capsule.Dr) 20 mg PO DAILY@0630 [facility] Last Admin: 07/11/22 06:41 Dose: 20 mg Documented By: HUBERT Ondansetron HCl (Ondansetron Hcl 4 Mg/2 Ml Vial) 4 mg IVPUSH Q8H PRN PRN Reason: Nausea and Vomiting Last Admin: 07/10/22 23:13 Dose: 4 mg Documented By: NANI Pharmacy Consult (Consult Rx Perform Med Rec) 1 each MISCELLANE ONCE PRN PRN Reason: Consult order Pharmacy Consult (Consult Rx Perform Med Rec) 1 each MISCELLANE ONCE PRN PRN Reason: Consult order Polyethylene Glycol (Polyethylene Glycol 3350 17 Gm Powd.Pack) 17 gm PO DAILY [facility] Last Admin: 07/11/22 07:41 Dose: 17 gm Documented By: GABE Sodium Chloride (0.9 % Sodium Chloride Flush 3 Ml Syringe) 3 ml IVFLUSH QSHIFT [facility] Last Admin: 07/11/22 07:44 Dose: 3 ml Documented By: GABE Tiotropium Winfield (Tiotropium [place]ield 18 Mcg Cap.W.Dev) 1 puff INHALE RDAILY [facility] Labs 07/10/22 04:18 07/11/22 06:00 Labs: Laboratory Results - last 24 hr 07/10/22 07/10/22 07/10/22 04:18 04:18 16:32 Anion Gap Estim Creat Clear Calc Estimated GFR POC Glucose 188 H Random Glucose Estimat Average Glucose 105 Hemoglobin A1c % 5.3 Calcium Procalcitonin 0.82 07/10/22 07/11/22 07/11/22 19:23 06:00 07:11 Anion Gap 18 Estim Creat Clear Calc 9.6 Estimated GFR 10 POC Glucose 185 H 147 H Random Glucose 173 H Estimat Average Glucose Hemoglobin A1c % Calcium 8.2 L Procalcitonin Assessment and Plan (1) Congestive heart failure with left ventricular dysfunction: Status: Acute Plan 67 yo F with a PMH of ESRD on HD MWF, HTN, chronic opiate dependence on suboxone, DM, HFpEF who presents with multiple complaints. Work up on the ED reveals fluid overload secondary to CHF and ESRD + multilobar pneumonia. She will be admitted for further work up. Multilobar pneumonia CT imaging with RML and ZACKARY infiltrates continue cefepime + doxy supplemental oxygen as needed follow cx Acute on chronic respiratory failure with hypoxia due to fluid overload from CHF/ESRD continue O2, wean as tolerated to her baseline (reportedly 1L) Acute HFpEF plan for dialysis urgently continue diuretics ESRD on HD plan for urgent dialysis nephrology consult HYponatremia chronic follow BMP closely DM A1C 5.3 not on home medications HTN on multiple meds at home, continue and titrate as needed LUQ abdominal pain, chronic unable to determine etiology from history; will check ct abd/pelvis Full Code DVT pptx, subcut. heparin Attending Dr. Combs continued hospitalization for treatment with IV antibiotics + urgent dialysis + evaluation of her LUQ pain. Time Spent With Patient Time: Total time managing care of this patient today ____ minutes. Quality Stroke Does the patient have a stroke diagnosis?: No VTE Prior VTE?: No VTE Risk Level:: Medical - moderate - high VTE Device Contraindication: Treatment Not Indicated VTE Drug Contraindication: N/A - Med Ordered
[2022-07-11] MEDS: Doxycycline Hyclate 100 MG in 0.9 % Sodium Chloride 250 ML 166.67 MG IV ×2 (14:02→14:07)
--- NOTE | 2022-07-11 14:14 | MHC.CM.PN ---
met with pt w/interpertator pt goes to dialysis , and sat..at [facility] has a sv[employer] and has transportaion home when dcd covid vx x 5 dc pt to sign out [facility]
--- NOTE | 2022-07-11 14:23 | P.DS_ITS ---
DS: Providers Provider Date of Service: 07/11/22 Date of admission: 07/10/22 09:24 Primary care physician: Sammy Vicente MD Consults: 07/10/22 09:05 Consult to Nephrology Routine Consulting Provider: Miguel López Reason for consultation: esrd Attending physician on discharge: Kunal Combs Discharging clinician: Angelica Ashby DS: Diagnosis Discharge Diagnosis (1) Congestive heart failure with left ventricular dysfunction: Status: Acute DS: Summary Hospital Course Hospital Course: HP as per [id number] provider The patient is a 67 year old F with a PMH as outlined below who presents to the ED with multiple complaints. The patient reports she has been having LUQ pain for the last 2 weeks. She is a vague historian regarding this, initially stating that the pain is constant and subsequently stating thgat it comes and goes. She reports associated nausea and vomiting - non-bloody/nonbiliious. Denies diarrhea, reports constipation. States the pain is better with eating. She denies any fever or chills. No known sick contacts. Upon further questioning, she reports productive cough and sob which began 1-2 days ago. She denies anginal chest pain. Apparently, the patient is supposed to be on 1L O2 at baseline, but reoportedly when found by EMS, she was without O2 and saturating in the 80s. She is requiring 3L to maintain saturations above 90. Work up in the ED showed an abnormal CXR showing RML infiltrate and smaller region in the ZACKARY . Patient decided to leave against medical advice. Of note the patient was alert, oriented x3 and no hypoxia noted. She was notified that her symptoms can worsen but she reported that she wants to leave against medical advice and has an appointment at [facility] on 07/13/2022 and does not want to miss it. She was told to come back to the ER for symptoms do worsen. Multilobar pneumonia CT imaging with RML and ZACKARY infiltrates continue cefepime + doxy supplemental oxygen as needed follow cx Acute on chronic respiratory failure with hypoxia due to fluid overload from CHF/ESRD continue O2, wean as tolerated to her baseline (reportedly 1L) Acute HFpEF Urgent dialysis on day of admission dialysis today continue diuretics ESRD on HD plan for urgent dialysis nephrology consult HYponatremia chronic follow BMP closely DM A1C 5.3 not on home medications HTN on multiple meds at home, continue and titrate as needed LUQ abdominal pain, chronic unable to determine etiology from history; will check ct abd/pelvis Time Spent with Patient Time attestation: Total time managing care of this patient today ____ minutes. Discharge coordination time: Greater than 30 minutes Quality: Safe Use of Opioids Does Pt have an Active Cancer Diagnosis on the Problem List?: No Quality: Stroke Does the patient have a stroke diagnosis?: No Physical Exam Vital Signs: Vital Signs: Last Vital Signs Temp 98.4 F 07/11/22 07:16 Pulse 92 07/11/22 07:35 Resp 24 H 07/11/22 07:35 BP 163/78 H 07/11/22 07:16 Pulse Ox 96 07/11/22 07:16 O2 Del Method 07/11/22 07:16 O2 Flow Rate 2 07/11/22 07:16 Oxygen Flow Rate 2 07/10/22 03:27 BMI result Body Mass Index 22.3 left against medical advice DS: Data Data Completed and Pending Completed studies during hospitalization [Text1]: Procedures Assistance with Respiratory Ventilation, Less than 24 Consecutive Hours, Continuous Positive Airway Pressure (04/14/22) Excision of Left Kidney, Percutaneous Approach, Diagnostic (02/25/21) Excision of Right Kidney, Percutaneous Approach, Diagnostic (10/22/20) Insertion of Endotracheal Airway into Trachea, Via Natural or Artificial Opening (10/12/21) Insertion of Infusion Device into Right Atrium, Percutaneous Approach (01/30/22) Insertion of Infusion Device into Superior Vena Cava, Percutaneous Approach (02/25/21) Insertion of Tunneled Vascular Access Device into Chest Subcutaneous Tissue and Fascia, Percutaneous Approach (10/12/21) Performance of Urinary Filtration, Intermittent, Less than 6 Hours Per Day (05/07/22) Respiratory Ventilation, 24-96 Consecutive Hours (10/12/21) Transfusion of Nonautologous Red Blood Cells into Peripheral Vein, Percutaneous Approach (02/25/21) Ultrasonography of Superior Vena Cava, Guidance (01/30/22) Labs on day of discharge: Laboratory Results - last 24 hr 07/10/22 07/10/22 07/11/22 16:32 19:23 06:00 Sodium 129 L Potassium 4.5 Chloride 94 L Carbon Dioxide 22 Anion Gap 18 BUN 27 H Creatinine 4.32 H* Estim Creat Clear Calc 9.6 Estimated GFR 10 POC Glucose 188 H 185 H Random Glucose 173 H Calcium 8.2 L 07/11/22 07:11 Sodium Potassium Chloride Carbon Dioxide Anion Gap BUN Creatinine Estim Creat Clear Calc Estimated GFR POC Glucose 147 H Random Glucose Calcium Discharge Plan Discharge Anticipated Discharge Date/Time: 07/11/22 14:11 Patient Disposition: Left Against Medical Advice Discharge Diagnosis: Multilobar pneumonia Acute on chronic respiratory failure with hypoxia Acute heart failure with preserved ejection fraction End-stage renal disease on dialysis Hyponatremia Referrals: [facility] [Other] - 1 Week Sammy Vicente MD [Primary Care Provider] - 1 Week Discharge Medications: New doxycycline hyclate 100 mg tablet 100 mg PO BID Qty: 8 0RF Continued buprenorphine-naloxone [Suboxone] 8-2 mg film 2 strip sublingual DAILY diltiazem HCl 180 mg capsule,extended release 24hr 360 mg PO DAILY clonidine HCl 0.2 mg tablet 0.2 mg PO BID docusate sodium [Colace] 100 mg capsule 100 mg PO BID PRN (Reason: Constipation) Qty: 30 0RF bumetanide 2 mg Tablet 2 mg PO DAILY pantoprazole 40 mg Tablet,Delayed Release (Dr/Ec) 40 mg PO DAILY melatonin 5 mg Tablet 5 mg PO BEDTIME PRN (Reason: Sleep) [employer]-[facility] Rx 1-60-300 mg-mg-mcg Tablet 1 tab PO DAILY fluticasone propionate [Flovent HFA] 110 mcg/actuation Hfa Aerosol Inhaler 1 puff INHALATION BID sennosides [senna] 8.6 mg tablet 1 - 2 tab PO BEDTIME PRN (Reason: constipation) aspirin 81 mg tablet,delayed release (DR/EC) 1 tab PO DAILY albuterol sulfate [Ventolin HFA] 90 mcg/actuation HFA aerosol inhaler 2 puff INHALATION Q4H PRN (Reason: wheezing) diclofenac sodium 1 % gel 2 g topical BID ondansetron 4 mg tablet,disintegrating 4 mg PO BID PRN (Reason: nausea and vomiting) carvedilol 6.25 mg tablet 1 tab PO BID Spiriva with HandiHaler 18 mcg capsule, w/inhalation device 1 cap inhalation DAILY gabapentin 300 mg capsule 1 cap PO DAILY diphenhydramine HCl [Benadryl] 25 mg capsule 25 mg PO DAILY PRN (Reason: allergy symptoms) Qty: 30 0RF polyethylene glycol 3350 [Miralax] 17 gram/dose powder 17 g PO DAILY Qty: 238 0RF albuterol sulfate 2.5 mg /3 mL (0.083 %) solution for nebulization 1 amp inhalation TID PRN (Reason: Shortness Of Breath) acetaminophen 500 mg tablet 500 mg PO Q6H PRN (Reason: fever or pain) Qty: 20 0RF lactulose 10 gram/15 mL solution 10 g PO DAILY PRN (Reason: constipation) Qty: 237 0RF isosorbide dinitrate 30 mg Tablet 30 mg PO TID Rx Instructions: allow nitrate-free interval of 12-14 hrs per 24-hr period amlodipine 10 mg tablet 10 mg PO DAILY Protocol: Hold for SBP< HOLD for SBP < : 90 Rx Instructions: replaces prior dose of 5 mg daily hydralazine 100 mg Tablet 100 mg PO TID Discharge Orders: Discharge Order (Routine); Ordered 07/11/22 Ordered By: Angelica Ashby Diet: Advance to usual diet Activity on Discharge: As tolerated Care Plan Goals: left against medical advice Health Concerns: Multilobar pneumonia Acute on chronic respiratory failure with hypoxia Acute heart failure with preserved ejection fraction End-stage renal disease on dialysis Hyponatremia Plan of Treatment: Follow-up with primary care provider Return to the ER if symptoms persist or worsen Take all medications as prescribed Assessment: See discharge summary
== END 2022-07-11 16:15 | disposition left against medical advice (07) | DRG 291 ==
LOC: HO.ED 07:41 → HO.EDOVER 09:30 → HO.IMC 11:31
PROVIDERS: Physician Assistant; Admitting Provider Family Medicine; Emergency Provider Internal Medicine; PCP Internal Medicine; Visit Provider Nurse Practitioner Acute Care
DX: I13.0 Hypertensive heart and chronic kidney disease with heart failure and stage 1 through stage 4 chronic kidney disease, or unspecified chronic kidney disease (principal); I50.31 Acute diastolic (congestive) heart failure; J18.9 Pneumonia, unspecified organism; N18.6 End stage renal disease; J96.21 Acute and chronic respiratory failure with hypoxia; E87.1 Hypo-osmolality and hyponatremia; J44.0 Chronic obstructive pulmonary disease with (acute) lower respiratory infection; E11.22 Type 2 diabetes mellitus with diabetic chronic kidney disease; Z20.822 Contact with and (suspected) exposure to COVID-19; F17.210 Nicotine dependence, cigarettes, uncomplicated; Z99.81 Dependence on supplemental oxygen; Z99.2 Dependence on renal dialysis; Z71.6 Tobacco abuse counseling; Z79.51 Long term (current) use of inhaled steroids; Z79.82 Long term (current) use of aspirin; Z79.899 Other long term (current) drug therapy
CPT/HCPCS: 36415; 71045; 71250; 74176; 80048; 80053; 82947; 83036; 83880; 84145; 84484; 85025; 85610; 85730; 87040; 87635; 90935; 90999; 93005; 94640; 99285; J0692; J1170; J1643; J1940; J2060; J2270; J2405; J2930

== ENCOUNTER 2022-08-07 12:50 | Inpatient (IN) | payer OTHER, SELFPAY ==
--- NOTE | ~2022-08-07 | CT_ITS ---
EXAMINATION: CT ABDOMEN AND PELVIS WITHOUT CONTRAST CLINICAL INFORMATION: Kidney pain COMPARISON: CT abdomen pelvis 07/10/2022 TECHNIQUE: Multidetector volumetric imaging was performed from the superior aspect of the liver through the pubic symphysis. Sagittal and coronal reformatted images were obtained on the technologist's workstation. This CT examination was performed using dose optimization techniques as appropriate, variously including the following: *Automated exposure control *Adjustment of mA and/or kV according to patient size (this includes techniques or standardized protocols for targeted exams where dose is matched to indication/reason for exam; i.e. extremities or head) *Use of iterative reconstruction technique DLP: 300 mGy-cm FINDINGS: LUNG BASES: The heart is mildly enlarged. No infiltrates, effusions or lung masses are seen. Previously seen pleural effusions are no longer present. There was septal thickening seen at the time of the prior study and probable Ortiz B lines. 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 LIVER, GALLBLADDER, AND BILIARY TREE: The liver is enlarged measuring 18 cm in greatest cephalocaudad dimension with decreased attenuation consistent with hepatic steatosis. No focal hepatic lesion or biliary ductal dilatation is present. The gallbladder is unremarkable with no evidence of radiopaque gallstones, gallbladder wall thickening, or obvious pericholecystic inflammatory changes. PANCREAS: No abnormality is seen. Marked motion artifact limits utility. SPLEEN: No definite abnormality seen. ADRENAL GLANDS: Adrenal glands poorly visualized secondary to motion artifact. KIDNEYS AND URETERS: The kidneys are normal in size, shape, and attenuation. There is a benign Bosniak class I left upper pole renal cyst which needs no additional imaging or follow-up. No solid renal masses. No renal calculi are seen. No renal calculi have been seen on any recent imaging. No hydronephrosis, hydroureter, or calculi seen. No perinephric stranding. BLADDER: Unremarkable. GASTROINTESTINAL TRACT: A large stool burden is present throughout the colon. The small and large bowel are otherwise unremarkable. The appendix is unremarkable. ABDOMINAL WALL: No significant hernia is appreciated. LYMPH NODES: Shotty retroperitoneal lymph nodes are seen but there is no adenopathy. 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 PELVIC VISCERA: Unremarkable. OSSEOUS STRUCTURES: Mild degenerative changes are present in the spine. There is compression of the superior endplate of the L3 vertebral body, unchanged from prior CT/CT abdomen pelvis wo IV con IMPRESSION: 1. A cause for the patient's kidney pain has not been found. There is no nephrolithiasis at this time. 2. 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 Fleischner guidelines were followed.
--- NOTE | ~2022-08-07 | IR_ITS ---
PROCEDURE: IR INSERTION OF CENTRAL VENOUS CATHETER CLINICAL INFORMATION: Temporary dialysis catheter. COMPARISON: None available. TECHNIQUE: Following explaining fluoroscopy and ultrasound-guided temporary dialysis catheter procedure, benefits and risks through a land checker, a written consent was obtained. The area of the left neck was imaged by ultrasound and optimal site was selected and marked on the skin. All elements of maximal sterile barrier technique followed including use of cap, mask, sterile gown, sterile gloves, a sterile full body drape and hand hygiene. Also followed skin preparation with 2% chlorhexidine for cutaneous antisepsis, and sterile ultrasound preparation with sterile gel and probe cover when applicable. Marked site was cleaned and draped in usual sterile manner. 1% lidocaine was administered at puncture site. Under sterile ultrasound guidance a single wall needle was advanced and left jugular vein was punctured. After observing venous return a thin guidewire was advanced and placed in the left brachiocephalic vein and needle withdrawn. A 3 Occitan dilator was placed over the guidewire. The guidewire was removed and a 0.375 J-wire was advanced and placed in IVC and the dilator was removed. The tract was dilated with 5, 7 and 12 Occitan dilators. A temporary dialysis catheter was then inserted over the guidewire and anchored to the skin with 3-0 nylon sutures. Both catheters were flushed with saline followed by heparin. Simple dressing was placed over the puncture site. Patient tolerated the procedure extremely well. Conscious sedation was utilized and patient monitored by IR nurse and radiologist for 15 minutes during the conscious sedation. FINDINGS: On preliminary ultrasound imaging the left jugular vein is patent. A temporary dialysis Mahurkar catheter was inserted from the left jugular approach with its tip at the aortocaval junction. The catheter is 20 cm long and 12.5 Occitan. FLUOROSCOPY TIME: 0.6 minutes. DOSE AREA PRODUCT: 90 cGy-cm2 IR/IR cvc insert non tunnel IMPRESSION: Successful ultrasound fluoroscopy guided placement of temporary dialysis Mahurkar catheter from the left side. The catheter is ready for use.
--- NOTE | ~2022-08-07 | IR_ITS ---
EXAMINATION: IR REMOVAL OF PERMACATH CLINICAL INFORMATION: Bacteremia. COMPARISON: None. TECHNIQUE: The area around the right permacath right anterior chest wall was exposed and the area cleaned and draped in usual sterile manner. 1% lidocaine was administered at puncture site and around the proximal tunnel and around the cuff of the catheter. With blunt dissection, the cuff was from the surrounding scar and gently pulled out. There was no bleeding. Compression applied for 5 minutes with pressure dressing applied at the puncture site. Patient tolerated procedure extremely well. IR/IR cvc remov tunnel wo prt/hog operator FINDINGS/IMPRESSION: Successful removal of right tunneled permacatheter without bleeding.
--- NOTE | ~2022-08-07 | XR_ITS ---
EXAMINATION: XR CHEST CLINICAL INFORMATION: Shortness of breath. COMPARISON: Chest radiograph dated 07/10/2022. TECHNIQUE: 2 views of the chest were obtained. FINDINGS: Support devices: A large bore right central venous catheter with tip terminating at the caval atrial junction. No significant abnormality is noted involving the heart, lungs, mediastinum, bony thorax or soft tissues. Old healed rib fractures are again noted bilaterally. XR/XR chest 2V IMPRESSION: No acute cardiopulmonary process.
--- NOTE | ~2022-08-07 | IR_ITS ---
PROCEDURE: IR LEFT-SIDED TUNNELED PERMACATH CLINICAL INDICATION: Needs dialysis. End-stage renal disease. ACCESS: Left internal jugular vein. GUIDANCE: Fluoroscopy (1) minutes. DAP: 49 cGy centimeter squared Ultrasound guidance for vascular access was utilized with ultrasound evaluation of the potential access site and documentation that the site was patent. Under real-time ultrasound, I visualized the vascular needle entry and recorded and reported US images from this in our PACS system. CONSCIOUS SEDATION: The patient received intravenous conscious sedation under my direct supervision. A registered nurse monitored the patient and the patient's vital signs throughout the procedure. The total sedation time was 52 minutes. A total of 1 mg of Versed and 50 mcg fentanyl was given for good effect. COMPLICATIONS: None CONTRAST: None INFORMED CONSENT: Informed consent was obtained from the patient's daughter prior to the procedure. During this process, the procedure and potential alternatives were explained, along with the intended outcome and benefits. The risks of the procedure including the possibility of an unsuccessful procedure, as well as the risk of not doing the procedure were discussed. The patient's daughter was given the opportunity to ask questions regarding the procedure and appeared competent to make decisions. A signed consent form documenting this discussion was placed in the medical record. A time-out procedure was performed. DESCRIPTION: The left neck and chest wall were prepped and draped. All elements of maximal sterile barrier technique followed including use of cap, mask, sterile gown, sterile gloves, a sterile full body drape and hand hygiene. Also followed skin preparation with 2% chlorhexidine for cutaneous antisepsis, and sterile ultrasound preparation with sterile gel and probe cover when applicable. Under direct ultrasonic guidance, the left internal jugular vein was punctured using a micropuncture system. Under fluoroscopic guidance, a 0.018 guidewire was advanced into the right atrium. Fluoroscopic landmarks were utilized to calculate a tunnel length. A tunnel was then created along the left chest wall to the jugular puncture site. A 14.5 Slovak 28 cm tip-to-cuff hemodialysis catheter was then pulled through the tunnel. The 0.018 wire was replaced with a 0.035 wire with its tip in the IVC. After serial dilatation with 10 and 12-Slovak dilators, a 15 Slovak peel-away sheath was then placed into the left jugular vein. The dialysis catheter was passed through the peel-away sheath and positioned with its tip in the superior right atrium. The peel-away sheath was removed and the wings of the permacath were secured to the skin using 2-0 monofilament suture. The jugular entry site was closed with Dermabond. The lumens of the permacath were flushed with normal saline. A sterile dressing was applied. 1.8 mL of heparin (1000 units per cc) was instilled in each port. IR/IR cvc insert central tunnel IMPRESSION: Successful placement of tunneled left-sided jugular dialysis catheter.
[2022-08-07 13:03] VITALS: BP 215/88; BP 220/90; PULSE 124; RESP 18; TEMP 37.9; O2SAT 96; BMI 22.3
[2022-08-07 14:13] VITALS: BP 195/65; PULSE 105; RESP 20; O2SAT 93
--- NOTE | 2022-08-07 14:39 | ECG_ITS ---
Test Reason : SOB Blood Pressure : / mmHG Vent. Rate : 103 BPM Atrial Rate : 103 BPM P-R Int : 162 ms QRS Dur : 084 ms QT Int : 352 ms P-R-T Axes : 056 -08 100 degrees QTc Int : 461 ms Poor data quality Sinus tachycardia Biatrial enlargement Left ventricular hypertrophy with repolarization abnormality ( R in aVL , Sokolow-Burton , Jona product , Romhilt-Lyons ) Abnormal ECG When compared with ECG of 11-JUL-2022 05:12, Poor data quality in current ECG precludes serial comparison Referred By: Myah Somers Electronically Signed By:CRISTIAN REMY MD
[2022-08-07 15:23] LABS: Lactic Acid 1.1 mmol/L (0.5-2.0)
[2022-08-07] MEDS: Acetaminophen 325 MG TABLET 975 MG PO (15:26)
--- NOTE | 2022-08-07 15:40 | ED.GENADULT ---
HPI - General Adult General Chief complaint: Weakness Stated complaint: WEAK,SOB,NO DIALYSIS X3 DAYS Time Seen by Provider: 08/07/22 14:37 Source: patient, family ([employer] Worker's Chelly over the Phone ) and EMS Mode of arrival: EMS Limitations: other (Poor historian) History of Present Illness HPI narrative: 67yoF with a Sig PMHx of COPD, ESRD on HD, TTHS, diabetes, HFpEF, ischemic colitis , on home oxygen 1 L who comes to the ER after her [employer] Chelly went to her house after the patient returned from dialysis this morning her [employer] notice that she was very weak and appeared to be throwing up some sputum appear to have difficulty breathing and complaining of kidney pain therefore she called EMS and sent her here for further evaluation treatment. On arrival patient reports that she is not coughing although she was spitting up some mucus and she is complaining of kidney pain otherwise she denies any other symptoms complaints or concerns. She denies any fevers, dizziness, headaches, chest pain or shortness of breath, nausea/vomiting/diarrhea, abdominal pain, rashes, recent falls or trauma, syncope, tremors or any other symptoms complaints or concerns at this time. MD complaint: General weakness, spitting up mucus, kidney pain Onset (ago): hour(s) (Prior to arrival) Related Data Home Medications Medication Instructions Recorded Confirmed buprenorphine 8 mg-naloxone 2 mg 2 strip sublingual DAILY 10/22/20 07/10/22 sublingual film (Suboxone) diltiazem HCl 180 mg 360 mg PO DAILY 10/22/20 07/10/22 capsule,extended release 24 hr bumetanide 2 mg tablet 2 mg PO DAILY 04/15/21 07/10/22 fluticasone propionate 110 1 puff inhalation BID 04/15/21 07/10/22 mcg/actuation HFA aerosol inhaler (Flovent HFA) melatonin 5 mg tablet 5 mg PO BEDTIME PRN Sleep 04/15/21 07/10/22 pantoprazole 40 mg tablet,delayed 40 mg PO DAILY 04/15/21 07/10/22 release vitamin B comp no.3-folic acid 1 1 tab PO DAILY 04/15/21 07/10/22 mg-vit C 60 mg-biotin 300 mcg tablet ([facility]) sennosides 8.6 mg tablet (senna) 1 - 2 tab PO BEDTIME PRN 05/11/21 07/10/22 constipation clonidine HCl 0.2 mg tablet 0.2 mg PO BID 07/27/21 07/10/22 aspirin 81 mg tablet,delayed 1 tab PO DAILY 10/11/21 07/10/22 release albuterol sulfate 90 mcg/actuation 2 puff inhalation Q4H PRN wheezing 01/31/22 07/10/22 aerosol inhaler (Ventolin HFA) diclofenac sodium 1 % topical gel 2 g topical BID 03/09/22 07/10/22 ondansetron 4 mg disintegrating 4 mg PO BID PRN nausea and vomiting 03/09/22 07/10/22 tablet carvedilol 6.25 mg tablet 1 tab PO BID 04/24/22 07/10/22 gabapentin 300 mg capsule 1 cap PO DAILY 04/24/22 07/10/22 tiotropium bromide 18 mcg capsule 1 cap inhalation DAILY 04/24/22 07/10/22 with inhalation device (Spiriva with HandiHaler) albuterol sulfate 2.5 mg/3 mL 1 amp inhalation TID PRN Shortness 05/08/22 07/10/22 (0.083 %) solution for nebulization Of Breath amlodipine 10 mg tablet 10 mg PO DAILY 07/10/22 07/10/22 hydralazine 100 mg tablet 100 mg PO TID 07/10/22 07/10/22 isosorbide dinitrate 30 mg tablet 30 mg PO TID 07/10/22 07/10/22 Previous Rx's Medication Instructions Recorded docusate sodium 100 mg capsule 100 mg PO BID PRN Constipation #30 12/04/21 (Colace) caps diphenhydramine HCl 25 mg capsule 25 mg PO DAILY PRN allergy 04/30/22 (Benadryl) symptoms #30 caps polyethylene glycol 3350 17 17 g PO DAILY #238 grams 04/30/22 gram/dose oral powder (Miralax) acetaminophen 500 mg tablet 500 mg PO Q6H PRN fever or pain 05/29/22 #20 tabs lactulose 10 gram/15 mL oral 10 g (15 mL) PO DAILY PRN 07/03/22 solution constipation #237 mL Allergies Allergy/AdvReac Type Severity Reaction Status Date / Time No Known Allergies Allergy Mild NOT Verified 04/14/22 01:40 APPLICABLE Review of Systems Review of Systems: Constitutional : No Weight loss, No Fever, No Chills, No Night Sweats, No Fatigue, No Malaise ENT/Mouth : No Hearing loss, No Ear Pain, No Nasal Congestion, No Sinus Pain, No Hoarseness, No sore throat, No Rhinorrhea, No Swallowing Difficulty Eyes: No Eye Pain, No Swelling, No Redness, No Foreign Body, No Discharge, No Vision Changes Cardiovascular : No Chest Pain, No SOB, No Dyspnea on Exertion, No Orthopnea, No Edema, No Palpitations Respiratory : No Cough, + Sputum, No Wheezing, No Smoke Exposure, No Dyspnea Gastrointestinal : + back pain near her kidneys she reports, No Nausea, No Vomiting, No Diarrhea, No Constipation, No abdominal Pain, No Hematochezia, No Melena Genitourinary : no irregular bleeding, No Dysuria, No Urinary Frequency, No Hematuria, No Urinary Incontinence, No Urgency, No Flank Pain, No Urinary Flow Changes, No Hesitancy Musculoskeletal : No joint pain, No Myalgias, No Joint Swelling Skin : No Skin Lesions, No rash Neuro : + General Weakness, No Numbness, No Paresthesias, No Loss of Consciousness, No Dizziness, No Headache Psych : No Anxiety/Panic, No Depression, No SI/HI/AH/VH, No Social Issues, Heme/Lymph: No Bruising, No Bleeding,No Lymphadenopathy Endocrine : No Polyuria, No Polydipsia, No Temperature Intolerance Yes all other systems are reviewed and are negative PMFSH Past Medical History Attestation statement: The following information was validated with the patient. Source: old records reviewed and nursing notes reviewed Medical History Acute exacerbation of chronic obstructive pulmonary disease (COPD) Acute GI bleeding Anasarca Anemia Anemia in chronic kidney disease Ascites Asthma with COPD with exacerbation Constipation COVID COVID-19 virus infection Diabetes mellitus End stage renal disease on dialysis ESRD (end stage renal disease) ESRD (end stage renal disease) Essential hypertension Heart failure with preserved ejection fraction Hypertension Hypertrophic cardiomyopathy Ischemic colitis Opioid withdrawal Pulmonary congestion Surgical History No pertinent past surgical history Family History Family History Other Hypertension Social History Social History Household Members: None Housing: House Do you presently have visiting nurse or other home services: Yes Unable to assess alcohol history related to: Unknown Alcohol intake: never Patient Tobacco Use Status: Current everyday Tobacco user Tobacco use type: Cigarette Cigarette Packs Per Day: 1 Cigarettes Per Day: 1 Years Smoked: 18 Smoked in Last 30 Days: No e-Cigarette/Vaping Use: Never Used Second Hand Smoke Exposure: No Use of substances other than those prescribed or required for medical reasons: No Substance Use Type: Crack/Cocaine Any prior treatment program specific to substance use: No Advance Directives: Yes Advance Directives on File: Yes Advance Directives Date on File: 04/17/22 service: No Current occupational status: unemployed and disabled Physical Exam ED Vital Signs: Vital Signs - 24 hr 08/07/22 13:03 08/07/22 14:13 Temperature 100.3 F Pulse Rate 124 H 105 H Respiratory Rate 18 20 Blood Pressure 215/88 H 195/65 H Pulse Oximetry 96 93 Oxygen Delivery Method Room Air Room Air BMI result Body Mass Index 22.3 vital signs have been reviewed as normal and appeared to be correct. Blood pressure 215/88. Heart rate 124. Respiration rate normal. Temperature normal. Oxygen saturation normal. Appearance: Alert. Oriented X3. No acute distress. Head: Normal external exam. Normocephalic. Atraumatic. Eyes: PERRLA. EOMI. Conjunctiva and sclera normal. Eyelids normal. ENT: Pharynx normal. Uvula midline. Moist mucous membranes. No lesions/ulcerations or masses noted on the tongue. Normal voice. No trismus noted. No drooling noted. No muffled voice noted. Neck: Normal inspection. Neck supple. FROM. No adenopathy. Thyroid Normal. No tracheal deviation noted. No crepitus is noted. No meningeal signs. No neck mass noted. No signs of trauma noted. CVS: Normal heart rate and rhythm. Heart sound normal. Pulses normal throughout. No murmurs/rales/gallops. Respiratory: No respiratory distress. Painless inspiration. Breath sounds normal. No wheezes/rales/rhonchi noted. Chest nontender. No crepitus is noted. No signs of trauma noted. No accessory muscle usage noted or decreased air movement noted. No signs of trauma. Abdomen: Soft and nontender. Bowel sounds normal in all 4 quadrants. No distention noted. No organomegaly noted. No visible injury noted. Back: + b/l CVA tenderness. Full range of motion noted. Nontender. No signs of trauma. Patient neuro intact bilaterally and distally on all 4 extremities. Patient's reflexes intact bilaterally and distally on all 4 extremities. No rashes/lesion/induration/fluctuance or signs of infection noted. Skin: Skin warm and dry. Normal skin color. Normal skin turgor. No rashes/lesions/lacerations noted. Extremities: No lower extremity edema. No calf tenderness is noted. Extremities exhibit normal range of motion and nontender. Neuro: Oriented X 3. No motor deficit. No sensory deficit. Reflexes normal. Normal steady gait. No focal neuro deficits noted. CN's II-XII intact bilaterally? Vascular: + radial pulses/+ 2 distal pedal pulses/+2 dorsalis pedis b/l. Normal cap refill. No cyanosis noted to upper extremity nails and lower extremity toes nails. Course Course Course Narrative: 14:50pm - 67yoF with a Sig PMHx of COPD, ESRD on HD, TTHS, diabetes, HFpEF, ischemic colitis, on home oxygen 1 L who comes to the ER after her [employer] Chelly went to her house after the patient returned from dialysis this morning her [employer] notice that she was very weak and appeared to be throwing up some sputum appear to have difficulty breathing and complaining of kidney pain therefore she called EMS and sent her here for further evaluation treatment. Patient continues to just say ay viki drew reports her back hurts near her kidneys otherwise she denies any other symptoms reports she did not pass out is not have any difficulty breathing and is not having a cough. Reevaluation(s) Reevaluation #1: Labs returned - leukocytosis 17,000 this is new - anemia with an H&H of 10.5/32.5 which is similar compared to prior - chloride 94 - BUN/creatinine 20/3.52 this is chronic improved when compared to prior - random glucose 157 - AST 66 - ALT 49 - alkaline phosphate 283 - CRP 10.55 Otherwise all other labs are within normal limits Imaging - chest x-ray within normal limits no acute processes noted. Pending CT scan abdomen pelvis without IV contrast although due to patient being tachycardic, febrile and leukocytosis will start on Rocephin and vancomycin for possible infection will re-evaluate. Time: 16:25 Reevaluation #2: CT scan abdomen pelvis without IV contrast due to patient's renal function/CKD on hemodialysis revealed chronic changes and improvement otherwise no other acute processes are noted. Although patient will need to be admitted due to she is tachycardic, febrile and with leukocytosis therefore will admit for bacteremia. Patient understands agrees with this plan. Time: 17:46 Medications Administered Discontinued Medications Generic Name Dose Route Start Last Admin Trade Name Freq PRN Reason Stop Dose Admin Acetaminophen 975 mg 08/07/22 14:49 08/07/22 15:26 Acetaminophen 325 Mg Tablet PO 08/07/22 14:50 975 mg ONCE ONE Administration Diphenhydramine HCl 25 mg 08/07/22 17:44 08/07/22 17:55 Diphenhydramine Hcl 50 Mg/Ml Vial IVPUSH 08/07/22 17:45 25 mg ONCE ONE Administration Hydromorphone HCl 0.5 mg 08/07/22 16:23 08/07/22 16:48 Hydromorphone Hcl 0.5 Mg/0.5 Ml Syringe IVPUSH 08/07/22 16:24 0.5 mg ONCE ONE Administration Protocol Ceftriaxone Sodium 2 gm/ 50 mls @ 100 mls/hr 08/07/22 16:21 08/07/22 17:18 Sodium Chloride IV 08/07/22 16:50 Infused ONCE ONE Infusion Vancomycin HCl 1,250 mg/ 250 mls @ 166.667 mls/hr 08/07/22 16:21 08/07/22 17:32 Sodium Chloride IV 08/07/22 17:50 166.67 mls/hr ONCE ONE Administration Ondansetron HCl 4 mg 08/07/22 16:23 08/07/22 16:48 Ondansetron Hcl 4 Mg/2 Ml Vial IVPUSH 08/07/22 16:24 4 mg ONCE ONE Administration Medical Decision Making Admission/Observation Consideration of admission/observation: Escalation of care including admission/observation considered (Patient will need to be admitted) Consult Healthcare Provider Management of the patient was discussed with: Hospitalist (Dr. Zuleta about admitting the patient) Lab Data MDM Lab Attestation statement: I reviewed the patient's lab results. 08/07/22 15:32 08/07/22 04:36 Labs: Lab Results 08/07/22 08/07/22 08/07/22 Range/Units 04:36 15:00 15:32 WBC 17.7 H (4.8-10.8) X10*3/uL RBC 3.33 L (4.20-5.50) X10*6/uL Hgb 10.5 L (12.0-16.0) g/dl Hct 32.5 L (37.0-47.0) % MCV 97.6 (80.0-98.0) fL MCH 31.5 (27.0-33.0) pg MCHC 32.3 (31.0-35.0) g/dl RDW 15.3 (11.0-16.0) % Plt Count 250 D (160-400) X10*3/uL MPV 9.8 (9.4-12.3) fL Immature Gran % (Auto) 1.4 H (0.0-0.4) % Neut % (Auto) 89.0 H (45-73) % Lymph % (Auto) 1.9 L (20-40) % [place] % (Auto) 7.4 (2-11) % Eos % (Auto) 0.1 (0-4) % Baso % (Auto) 0.2 (0-2) % Lymph # (Auto) 0.3 L (1.2-4.9) X10*3/uL [place] # (Auto) 1.3 H (0.1-1.2) X10*3/uL Eos # (Auto) 0.0 (0.0-0.4) X10*3/uL Baso # (Auto) 0.0 (0.0-0.2) X10*3/uL Abs Immat Gran (auto) 0.24 H (0.00-0.03) X10*3/uL Absolute Neuts (auto) 15.8 H (2.0-8.3) x10*3/uL Absolute Nucleated RBC 0.120 H (0.0-0.012) X10*3/uL Nucleated RBC % (auto) 0.7 H (0.0-0.2) /100WBC ESR (0-20) MM/HR PT (10.0-13.1) SEC INR (0.9-1.1) Sodium 139 (135-145) mmol/L Potassium 3.9 (3.3-5.1) mmol/L Chloride 94 L (96-108) mmol/L Carbon Dioxide 29 (22-29) mmol/L Anion Gap 20 (12-20) BUN 20 H (9-16) mg/dL Creatinine 3.52 H (0.5-1.4) mg/dL Estim Creat Clear Calc 11.2 Estimated GFR 13 Random Glucose 157 H (60-115) mg/dL Lactic Acid 1.1 (0.5-2.0) mmol/L Calcium 9.2 D (8.4-10.2) mg/dL Magnesium 1.9 (1.6-2.6) mg/dL Total Bilirubin 0.6 (0.0-1.0) mg/dL AST 66 H (5-31) U/L ALT 49 H (0-31) U/L Alkaline Phosphatase 283 H (39-117) U/L Troponin I High Sens (<3.5-17.0) ng/L C-Reactive Protein (< or = 0.50) mg/dL Total Protein 7.5 (6.5-8.0) g/dL Albumin 4.0 (3.5-5.0) g/dL Influenza Type A (PCR) (Negative) Influenza Type B (PCR) (Negative) RSV RNA Qual (PCR) (Negative) SARS-CoV-2 RNA (RT-PCR) (Negative) 08/07/22 08/07/22 08/07/22 Range/Units 15:32 15:32 15:33 WBC (4.8-10.8) X10*3/uL RBC (4.20-5.50) X10*6/uL Hgb (12.0-16.0) g/dl Hct (37.0-47.0) % MCV (80.0-98.0) fL MCH (27.0-33.0) pg MCHC (31.0-35.0) g/dl RDW (11.0-16.0) % Plt Count (160-400) X10*3/uL MPV (9.4-12.3) fL Immature Gran % (Auto) (0.0-0.4) % Neut % (Auto) (45-73) % Lymph % (Auto) (20-40) % [place] % (Auto) (2-11) % Eos % (Auto) (0-4) % Baso % (Auto) (0-2) % Lymph # (Auto) (1.2-4.9) X10*3/uL [place] # (Auto) (0.1-1.2) X10*3/uL Eos # (Auto) (0.0-0.4) X10*3/uL Baso # (Auto) (0.0-0.2) X10*3/uL Abs Immat Gran (auto) (0.00-0.03) X10*3/uL Absolute Neuts (auto) (2.0-8.3) x10*3/uL Absolute Nucleated RBC (0.0-0.012) X10*3/uL Nucleated RBC % (auto) (0.0-0.2) /100WBC ESR 74 H (0-20) MM/HR PT 12.4 (10.0-13.1) SEC INR 1.1 (0.9-1.1) Sodium (135-145) mmol/L Potassium (3.3-5.1) mmol/L Chloride (96-108) mmol/L Carbon Dioxide (22-29) mmol/L Anion Gap (12-20) BUN (9-16) mg/dL Creatinine (0.5-1.4) mg/dL Estim Creat Clear Calc Estimated GFR Random Glucose (60-115) mg/dL Lactic Acid (0.5-2.0) mmol/L Calcium (8.4-10.2) mg/dL Magnesium (1.6-2.6) mg/dL Total Bilirubin (0.0-1.0) mg/dL AST (5-31) U/L ALT (0-31) U/L Alkaline Phosphatase (39-117) U/L Troponin I High Sens (<3.5-17.0) ng/L C-Reactive Protein 10.55 H (< or = 0.50) mg/dL Total Protein (6.5-8.0) g/dL Albumin (3.5-5.0) g/dL Influenza Type A (PCR) (Negative) Influenza Type B (PCR) (Negative) RSV RNA Qual (PCR) (Negative) SARS-CoV-2 RNA (RT-PCR) (Negative) 08/07/22 08/07/22 Range/Units 15:33 15:33 WBC (4.8-10.8) X10*3/uL RBC (4.20-5.50) X10*6/uL Hgb (12.0-16.0) g/dl Hct (37.0-47.0) % MCV (80.0-98.0) fL MCH (27.0-33.0) pg MCHC (31.0-35.0) g/dl RDW (11.0-16.0) % Plt Count (160-400) X10*3/uL MPV (9.4-12.3) fL Immature Gran % (Auto) (0.0-0.4) % Neut % (Auto) (45-73) % Lymph % (Auto) (20-40) % [place] % (Auto) (2-11) % Eos % (Auto) (0-4) % Baso % (Auto) (0-2) % Lymph # (Auto) (1.2-4.9) X10*3/uL [place] # (Auto) (0.1-1.2) X10*3/uL Eos # (Auto) (0.0-0.4) X10*3/uL Baso # (Auto) (0.0-0.2) X10*3/uL Abs Immat Gran (auto) (0.00-0.03) X10*3/uL Absolute Neuts (auto) (2.0-8.3) x10*3/uL Absolute Nucleated RBC (0.0-0.012) X10*3/uL Nucleated RBC % (auto) (0.0-0.2) /100WBC ESR (0-20) MM/HR PT (10.0-13.1) SEC INR (0.9-1.1) Sodium (135-145) mmol/L Potassium (3.3-5.1) mmol/L Chloride (96-108) mmol/L Carbon Dioxide (22-29) mmol/L Anion Gap (12-20) BUN (9-16) mg/dL Creatinine (0.5-1.4) mg/dL Estim Creat Clear Calc Estimated GFR Random Glucose (60-115) mg/dL Lactic Acid (0.5-2.0) mmol/L Calcium (8.4-10.2) mg/dL Magnesium (1.6-2.6) mg/dL Total Bilirubin (0.0-1.0) mg/dL AST (5-31) U/L ALT (0-31) U/L Alkaline Phosphatase (39-117) U/L Troponin I High Sens 89.5 H* D (<3.5-17.0) ng/L C-Reactive Protein (< or = 0.50) mg/dL Total Protein (6.5-8.0) g/dL Albumin (3.5-5.0) g/dL Influenza Type A (PCR) NEGATIVE (Negative) Influenza Type B (PCR) NEGATIVE (Negative) RSV RNA Qual (PCR) NEGATIVE (Negative) SARS-CoV-2 RNA (RT-PCR) NEGATIVE (Negative) Independent Interpretation I performed an independent interpretation of an: Plain X-Ray (Chest x-ray reviewed by myself agreeable radiologist report) and CT Scan (CT scan reviewed by myself and agreeable radiologist report) Radiology Impression Discussion of test interpretation with radiology: I have reviewed the radiologist's reading. Radiologist Impression: FINDINGS: Support devices: A large bore right central venous catheter with tip terminating at the caval atrial junction. No significant abnormality is noted involving the heart, lungs, mediastinum, bony thorax or soft tissues. Old healed rib fractures are again noted bilaterally. XR/XR chest 2V IMPRESSION: No acute cardiopulmonary process. FINDINGS: LUNG BASES: The heart is mildly enlarged. No infiltrates, effusions or lung masses are seen. Previously seen pleural effusions are no longer present. There was septal thickening seen at the time of the prior study and probable Ortiz B lines. Findings are most likely direct customer service representative of improved CHF. LIVER, GALLBLADDER, AND BILIARY TREE: The liver is enlarged measuring 18 cm in greatest cephalocaudad dimension with decreased attenuation consistent with hepatic steatosis.? No focal hepatic lesion or biliary ductal dilatation is present. The gallbladder is unremarkable with no evidence of radiopaque gallstones, gallbladder wall thickening, or obvious pericholecystic inflammatory changes.? PANCREAS: No abnormality is seen. Marked motion artifact limits utility.? SPLEEN: No definite abnormality seen.? ADRENAL GLANDS: Adrenal glands poorly visualized secondary to motion artifact.? KIDNEYS AND URETERS: The kidneys are normal in size, shape, and attenuation. There is a benign Bosniak class I left upper pole renal cyst which needs no additional imaging or follow-up. No solid renal masses. No renal calculi are seen. No renal calculi have been seen on any recent imaging. No hydronephrosis, hydroureter, or calculi seen. No perinephric stranding. ? BLADDER: Unremarkable.? GASTROINTESTINAL TRACT: A large stool burden is present throughout the colon. The small and large bowel are otherwise unremarkable. The appendix is unremarkable.? ABDOMINAL WALL: No significant hernia is appreciated.? LYMPH NODES: Shotty retroperitoneal lymph nodes are seen but there is no adenopathy. 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 PELVIC VISCERA: Unremarkable.? OSSEOUS STRUCTURES: Mild degenerative changes are present in the spine. There is compression of the superior endplate of the L3 vertebral body, unchanged from prior? CT/CT abdomen pelvis wo IV con IMPRESSION: 1.? A cause for the patient's kidney pain has not been found. There is no nephrolithiasis at this time. 2.? 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 ? Fleischner guidelines were followed. Independent Historian Clinical information obtained from an independent historian. History obtained from or confirmed by: Other (Patient, [employer] worker Chelly over the phone I called her my cell) External Record Review External record reviewed: Inpatient record, Office record, Outpatient record, Prior outpatient labs, Prior outpatient radiology, Primary care record and Outside ED record All prior inpatient/outpatient lab/imaging/notes/records are reviewed by myself that are acceptable in our system Chronic Conditions Patient?s care impacted by: Other (See HPI patient has multiple comorbidities/chronic conditions is currently on hemodialysis Sunday/Sunday and Sunday went today confirmed by [employer]) Critical Care Time Critical Care Time Critical Care Time: Yes Total Critical Care Time: 60 Attestation: I personally attest to this time spent taking care of the patient Discharge Plan Discharge Clinical Impression: Fever, Leukocytosis, Tachycardia, Bacteremia Patient Disposition: Admitted As Inpatient
[2022-08-07 15:46] LABS: MANUAL DIFF FLAG NO
[2022-08-07 15:51] LABS: Basophils Percent Auto 0.2 % (0-2); Eosinophils Percent Auto 0.1 % (0-4); Hematocrit 32.5 % (37.0-47.0); Hemoglobin 10.5 g/dl (12.0-16.0); Imm Gran Abs Auto 0.24 X10*3/uL (0.00-0.03); Imm Gran Pct Auto 1.4 % (0.0-0.4); Lymphocytes Absolute Auto 0.3 X10*3/uL (1.2-4.9); Lymphocytes Percent Auto 1.9 % (20-40); Mean Corpuscular HGB Conc 32.3 g/dl (31.0-35.0); Mean Corpuscular Hemoglobin 31.5 pg (27.0-33.0); Mean Corpuscular Volume 97.6 fL (80.0-98.0); Mean Platelet Volume 9.8 fL (9.4-12.3); Monocytes Absolute Auto 1.3 X10*3/uL (0.1-1.2); Monocytes Percent Auto 7.4 % (2-11); NRBC Pct Auto 0.7 /100WBC (0.0-0.2); Neutrophils Absolute Auto 15.8 x10*3/uL (2.0-8.3); Platelet Count 250 X10*3/uL (160-400); Red Blood Count 3.33 X10*6/uL (4.20-5.50); Red Cell Distribution Width 15.3 % (11.0-16.0); White Blood Count 17.7 X10*3/uL (4.8-10.8)
[2022-08-07 15:56] LABS: INTERNATIONAL NORM RATIO 1.1 (0.9-1.1); Prothrombin Time 12.4 SEC (10.0-13.1)
[2022-08-07 16:12] LABS: C Reactive Protein 10.55 mg/dL (< or = 0.50)
[2022-08-07 16:23] LABS: Alanine Aminotransferase 49 U/L (0-31); Alkaline Phosphatase 283 U/L (39-117); Anion Gap 20 (12-20); Aspartate Amino Transferase 66 U/L (5-31); Bilirubin Total 0.6 mg/dL (0.0-1.0); Blood Urea Nitrogen 20 mg/dL (9-16); Calcium 9.2 mg/dL (8.4-10.2); Carbon Dioxide 29 mmol/L (22-29); Chloride 94 mmol/L (96-108); Creatinine Clr Calc Pharmacy 11.2; Estimated Glomerular Filt Rate 13; Glucose Random 157 mg/dL (60-115); Magnesium 1.9 mg/dL (1.6-2.6); Potassium 3.9 mmol/L (3.3-5.1); Sodium 139 mmol/L (135-145); Total Protein 7.5 g/dL (6.5-8.0)
[2022-08-07 16:24] LABS: Influenza A PCR NEGATIVE (Negative); Influenza B PCR NEGATIVE (Negative); Resp Syncy Virus RNA Qual PCR NEGATIVE (Negative); SARS COV2 PCR INHOUSE NEGATIVE (Negative)
[2022-08-07] MEDS: HYDROmorphone HCl 0.5 MG/0.5 ML SYRINGE IVPUSH (16:48)
[2022-08-07] MEDS: ondansetron HCL 4 MG/2 ML VIAL IVPUSH (16:48)
[2022-08-07] MEDS: cefTRIAXone sodium 2 GM in 0.9 % Sodium Chloride 50 ML IV (16:48)
[2022-08-07] MEDS: vancomycin HCL 1,250 MG in 0.9 % Sodium Chloride 250 ML 166.67 MG IV (17:32)
[2022-08-07 17:41] LABS: Troponin-I High Sensitivity 89.5 ng/L (<3.5-17.0)
[2022-08-07 17:49] LABS: Erythrocyte Sedimentation Rate 74 MM/HR (0-20)
[2022-08-07] MEDS: diphenhydrAMINE HCL 50 MG/ML VIAL 25 MG IVPUSH (17:55)
--- NOTE | 2022-08-07 18:23 | PC.NURSE ---
Bladder scan of zero, will not straight cath, provider made aware.
--- NOTE | 2022-08-07 18:26 | MHC.EDTECH ---
Brought patient pudding.
--- NOTE | 2022-08-07 18:26 | MHC.EDTECH ---
Bladder scan patient 000ml nurse aware.
--- NOTE | 2022-08-07 18:36 | PM.IMHP ---
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 due to nausea, vomiting, shortness of breath, cough, kidney pain and generalized weakness, patient underwent hemodialysis treatment this morning, in emergency room patient was noted to be spitting mucous, complained of right-sided mid back discomfort, she denied fever headache dizziness lightheadedness, denies sick contacts, patient complains of constipation no bowel movement in 2 weeks she normally makes urine but has had no urine output in 2 weeks, patient lives alone at home workup in the ER included a CT abdomen and pelvis showed no hydronephrosis, no renal stones, normal urinary bladder she was noted to have large stool burden CT chest showed no acute infiltrate it showed improvement in previously seen congestive heart failure , vitals blood pressure 195/65,, temp 100.3 degrees, pulse 124, in ER patient treated with IV ceftriaxone, patient is being admitted to [facility] with a diagnosis of Sirs with tachycardia, leukocytosis no source of infection. Review of Systems Review of Systems: General no headache, no dizziness no fever chills. CVS no chest pain, no palpitation. Respiratory cough sputum production, no respiratory distress. Gastrointestinal nausea/ vomiting, constipation, no abdominal pain Yes all other systems are reviewed and are negative [facility] Medical History Acute exacerbation of chronic obstructive pulmonary disease (COPD) Acute GI bleeding Anasarca Anemia Anemia in chronic kidney disease Ascites Asthma with COPD with exacerbation Constipation COVID COVID-19 virus infection Diabetes mellitus End stage renal disease on dialysis ESRD (end stage renal disease) ESRD (end stage renal disease) Essential hypertension Heart failure with preserved ejection fraction Hypertension Hypertrophic cardiomyopathy Ischemic colitis Opioid withdrawal Pulmonary congestion Family History Other Hypertension Surgical History No pertinent past surgical history Social History Household Members: Caregiver Housing: House Do you presently have visiting nurse or other home services: Yes Unable to assess alcohol history related to: Unknown Alcohol intake: never Patient Tobacco Use Status: Current everyday Tobacco user Tobacco use type: Cigarette Cigarette Packs Per Day: 1 Cigarettes Per Day: 1 Years Smoked: 18 Smoked in Last 30 Days: No e-Cigarette/Vaping Use: Never Used Second Hand Smoke Exposure: No Use of substances other than those prescribed or required for medical reasons: No Substance Use Type: Crack/Cocaine Currently Displaying Signs/Symptoms of Drug Intoxication Withdrawal: No Any prior treatment program specific to substance use: No Have you been hit, kicked, punched, or otherwise hurt by someone within the past year? If so, by whom?: No Do you feel safe in your current relationship?: No Current Relationship Is there a partner from a previous relationship who is making you feel unsafe now?: No Are you made to feel afraid or neglected: No Advance Directives: Yes Advance Directives on File: Yes Advance Directives Date on File: 04/17/22 Do you have thoughts of harming others: None Recently lost weight without trying: No Eating poorly because of decreased appetite: No Nutrition Risks: No Nutritional Risk Patient : No : No Poor oral hygiene: No service: No Current occupational status: unemployed and disabled Meds Allergies Allergy/AdvReac Type Severity Reaction Status Date / Time No Known Allergies Allergy Mild NOT Verified 04/14/22 01:40 APPLICABLE Active Medications: Current Medications Acetaminophen (Acetaminophen 325 Mg Tablet) 650 mg PO Q6H PRN PRN Reason: Pain, Mild (Pain Scale 1-3) Heparin Sodium (Porcine) (Heparin Sodium,Porcine 5,000 Unit/Ml Vial) 5,000 unit SUBCUT Q8H [facility] Lactulose (Lactulose 20 Gm/30 Ml Solution) 20 gm PO ONCE ONE Stop: 08/07/22 18:28 Melatonin (Melatonin 3 Mg Tablet) 3 mg PO BEDTIME PRN PRN Reason: Insomnia Ondansetron HCl (Ondansetron Hcl 4 Mg/2 Ml Vial) 4 mg IVPUSH Q8H PRN PRN Reason: Nausea and Vomiting Pharmacy Consult (Consult Rx Perform Med Rec) 1 each MISCELLANE ONCE PRN PRN Reason: Consult order Sodium Chloride (0.9 % Sodium Chloride Flush 3 Ml Syringe) [facility] Medications Medication Instructions Recorded Confirmed Last Taken Type buprenorphine 8 mg-naloxone 2 mg 2 strip sublingual DAILY 10/22/20 08/07/22 05/06/22 History sublingual film (Suboxone) diltiazem HCl 180 mg 360 mg PO DAILY 10/22/20 08/07/22 05/06/22 History capsule,extended release 24 hr bumetanide 2 mg tablet 2 mg PO DAILY 04/15/21 08/07/22 05/06/22 History fluticasone propionate 110 1 puff inhalation BID 04/15/21 08/07/22 Unknown History mcg/actuation HFA aerosol inhaler (Flovent HFA) melatonin 5 mg tablet 5 mg PO BEDTIME PRN Sleep 04/15/21 08/07/22 Unknown History pantoprazole 40 mg tablet,delayed 40 mg PO DAILY 04/15/21 08/07/22 05/06/22 History release sennosides 8.6 mg tablet (senna) 1 - 2 tab PO BEDTIME PRN 05/11/21 08/07/22 Unknown History constipation clonidine HCl 0.2 mg tablet 0.2 mg PO BID 07/27/21 08/07/22 05/06/22 History aspirin 81 mg tablet,delayed 1 tab PO DAILY 10/11/21 08/07/22 05/06/22 History release albuterol sulfate 90 mcg/actuation 2 puff inhalation Q4H PRN wheezing 01/31/22 08/07/22 Unknown History aerosol inhaler (Ventolin HFA) ondansetron 4 mg disintegrating 4 mg PO BID PRN nausea and vomiting 03/09/22 08/07/22 Unknown History tablet carvedilol 6.25 mg tablet 1 tab PO BID 04/24/22 08/07/22 05/06/22 History albuterol sulfate 2.5 mg/3 mL 1 amp inhalation TID PRN Shortness 05/08/22 08/07/22 Unknown History (0.083 %) solution for nebulization Of Breath amlodipine 10 mg tablet 10 mg PO DAILY 07/10/22 08/07/22 Unknown History hydralazine 100 mg tablet 100 mg PO TID 07/10/22 08/07/22 Unknown History isosorbide dinitrate 30 mg tablet 30 mg PO TID 07/10/22 08/07/22 Unknown History nicotine 21 mg/24 hr daily 1 patch topical DAILY 08/07/22 08/07/22 Unknown History transdermal patch Physical Exam Vital Signs and Narrative: Vital Signs: Last Vital Signs Temp 100.3 F 08/07/22 13:03 Pulse 105 H 08/07/22 14:13 Resp 20 08/07/22 14:13 BP 195/65 H 08/07/22 14:13 Pulse Ox 93 08/07/22 14:13 O2 Del Method 08/07/22 14:13 BMI result Body Mass Index 22.3 Const: Other: Gen: Awake alert x3, in no acute distress HEENT: sclera anicteric, moist mucus membranes Neck: supple Right anterior chest wall at site of hemodialysis catheter with no surrounding redness, swelling or tenderness. Lungs: Few expiratory wheeze, bilaterally Heart: regular rate and rhythm, no murmurs Abd: soft, distended, nontender bowel sounds audible Back no CVA tenderness Ext: no edema Skin: warm/well-perfused Neuro: alert and oriented x3, no focal findings Psych: appropriate affect ? Results Labs 08/07/22 15:32 08/07/22 04:36 Labs: Laboratory Results - last 24 hr 08/07/22 08/07/22 08/07/22 04:36 15:00 15:32 MCV 97.6 MCH 31.5 MCHC 32.3 RDW 15.3 Plt Count 250 D MPV 9.8 Immature Gran % (Auto) 1.4 H Neut % (Auto) 89.0 H Lymph % (Auto) 1.9 L [place] % (Auto) 7.4 Eos % (Auto) 0.1 Baso % (Auto) 0.2 Lymph # (Auto) 0.3 L [place] # (Auto) 1.3 H Eos # (Auto) 0.0 Baso # (Auto) 0.0 Abs Immat Gran (auto) 0.24 H Absolute Neuts (auto) 15.8 H Absolute Nucleated RBC 0.120 H Nucleated RBC % (auto) 0.7 H ESR PT INR Anion Gap 20 Estim Creat Clear Calc 11.2 Estimated GFR 13 Random Glucose 157 H Lactic Acid 1.1 Calcium 9.2 D Magnesium 1.9 Total Bilirubin 0.6 AST 66 H ALT 49 H Alkaline Phosphatase 283 H Troponin I High Sens C-Reactive Protein Total Protein 7.5 Albumin 4.0 Influenza Type A (PCR) Influenza Type B (PCR) RSV RNA Qual (PCR) SARS-CoV-2 RNA (RT-PCR) 08/07/22 08/07/22 08/07/22 15:32 15:32 15:33 MCV MCH MCHC RDW Plt Count MPV Immature Gran % (Auto) Neut % (Auto) Lymph % (Auto) [place] % (Auto) Eos % (Auto) Baso % (Auto) Lymph # (Auto) [place] # (Auto) Eos # (Auto) Baso # (Auto) Abs Immat Gran (auto) Absolute Neuts (auto) Absolute Nucleated RBC Nucleated RBC % (auto) ESR 74 H PT 12.4 INR 1.1 Anion Gap Estim Creat Clear Calc Estimated GFR Random Glucose Lactic Acid Calcium Magnesium Total Bilirubin AST ALT Alkaline Phosphatase Troponin I High Sens C-Reactive Protein 10.55 H Total Protein Albumin Influenza Type A (PCR) Influenza Type B (PCR) RSV RNA Qual (PCR) SARS-CoV-2 RNA (RT-PCR) 08/07/22 08/07/22 15:33 15:33 MCV MCH MCHC RDW Plt Count MPV Immature Gran % (Auto) Neut % (Auto) Lymph % (Auto) [place] % (Auto) Eos % (Auto) Baso % (Auto) Lymph # (Auto) [place] # (Auto) Eos # (Auto) Baso # (Auto) Abs Immat Gran (auto) Absolute Neuts (auto) Absolute Nucleated RBC Nucleated RBC % (auto) ESR PT INR Anion Gap Estim Creat Clear Calc Estimated GFR Random Glucose Lactic Acid Calcium Magnesium Total Bilirubin AST ALT Alkaline Phosphatase Troponin I High Sens 89.5 H* D C-Reactive Protein Total Protein Albumin Influenza Type A (PCR) NEGATIVE Influenza Type B (PCR) NEGATIVE RSV RNA Qual (PCR) NEGATIVE SARS-CoV-2 RNA (RT-PCR) NEGATIVE Imaging Radiologist's Impressions: Impressions Chest X-Ray 08/07/22 15:06 IMPRESSION: No acute cardiopulmonary process. Abdomen/Pelvis CT 08/07/22 15:59 IMPRESSION: 1. A cause for the patient's kidney pain has not been found. There is no nephrolithiasis at this time. 2. 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 Fleischner guidelines were followed. Assessment and Plan (1) Fever: Status: Acute Plan 67 yo F with a PMH of ESRD on HD MWF, HTN, chronic opiate dependence on suboxone, DM, HFpEF who presents with multiple complaints. Work up on the ED reveals fluid overload secondary to CHF and ESRD + multilobar pneumonia. She will be admitted for further work up. 1. Fever, leukocytosis Patient has SIRS with no source of infection CT abdomen and chest showed no acute abnormality other than large stool burden Will treat constipation, obtain urinalysis, no redness , no swelling or tenderness around hemodialysis catheter, follow blood cultures, repeat CBC Patient received 1 dose of IV ceftriaxone and IV vancomycin in ED, hold further antibiotics 2. chronic respiraotyr failure with hypoxia Stable oxygenation 3. ESRD on HD continue hemodialysis obtain Nephrology consult 4. HTN Uncontrolled blood pressure, chronically elevated BP, will resume home medications follow blood pressure closely. 5. Constipation will give lactulose, will place on scheduled MiraLax and stool softeners. 6. Chronic COPD no acute exacerbation Full Code DVT pptx, subcut. heparin Given patient's multiple chronic co-morbidities , now with fever, leukocytosis, back pain and constipation she will require two night inpatient hospitalization and close clinical follow-up Time Spent With Patient Time: Total time managing care of this patient today ____ minutes. Quality Stroke Does the patient have a stroke diagnosis?: No VTE Prior VTE?: No VTE Risk Level:: Medical - moderate - high VTE Device Contraindication: Treatment Not Indicated VTE Drug Contraindication: N/A - Med Ordered
[2022-08-07 18:51] LABS: Troponin-I High Sensitivity 96.9 ng/L (<3.5-17.0)
--- NOTE | 2022-08-07 19:22 | PHA.MEDREC ---
Pharmacy Consult ? Medication Reconciliation Pharmacy has completed the medication reconciliation. [employer] used. Tried to go over medication list with patient and patient became frustrated saying I take everything I take everything . He told me he goes to [facility] pharmacy. Used claims from pharmacy. I did ask the patient if he is on insulin to which he told me no.
[2022-08-07] MEDS: Metoclopramide HCl 10 MG/2 ML VIAL IVPUSH (19:33)
[2022-08-07 19:34] VITALS: BP 161/70; PULSE 78; RESP 13; TEMP 37.3; O2SAT 97
[2022-08-07] MEDS: Heparin Sodium,Porcine 5,000 UNIT/ML VIAL 5000 UNIT SUBCUT (19:39)
[2022-08-07] MEDS: Lactulose 20 GM/30 ML SOLUTION PO (19:39)
[2022-08-07 21:01] VITALS: BMI 22.4
[2022-08-07 21:24] VITALS: BP 200/100; PULSE 105
[2022-08-07] MEDS: carvediloL 6.25 MG TABLET PO (21:32)
[2022-08-07] MEDS: 0.9 % Sodium Chloride Flush 3 ML SYRINGE IVFLUSH (21:32)
[2022-08-07] MEDS: Melatonin 3 MG TABLET PO (21:32)
[2022-08-07] MEDS: cloNIDine HCL 0.2 MG TABLET PO (21:32)
[2022-08-07 23:12] VITALS: BP 199/87; PULSE 98; RESP 20
[2022-08-08] MEDS: Acetaminophen 325 MG TABLET 650 MG PO ×2 (00:53→07:33)
--- NOTE | 2022-08-08 02:04 | PC.NURSE ---
Pt arrived from the Ed at 2056, assisted pt to bed by staff, pt alert and oriented, pt denies any pain upon arrival but just feel chilly, room temp adjusted, additional warm blanket provided, vitals WNL except BP on the high side, manual BP 200/100 H 105, due Coreg and Clonidine po given, Dr. Wiley was updated at 2139, BP was rechecked 199/87 H 98 at 2300, Dr. Singh was made aware, awiting for order by then. At 0144, Lab caled for a critical blood cultures of both sets done 08/07 as positive for gram positive cocci in clusters on gram stain, Dr. Singh was made aware at 0148.
[2022-08-08] MEDS: Heparin Sodium,Porcine 5,000 UNIT/ML VIAL 5000 UNIT SUBCUT ×3 (02:35→18:20)
[2022-08-08 03:59] VITALS: BP 186/80; PULSE 69; RESP 18; TEMP 36; O2SAT 97
[2022-08-08 06:30] LABS: Hematocrit 30.6 % (37.0-47.0); Hemoglobin 9.7 g/dl (12.0-16.0); Mean Corpuscular HGB Conc 31.7 g/dl (31.0-35.0); Mean Corpuscular Hemoglobin 31.2 pg (27.0-33.0); Mean Corpuscular Volume 98.4 fL (80.0-98.0); Mean Platelet Volume 9.9 fL (9.4-12.3); NRBC Pct Auto 0.1 /100WBC (0.0-0.2); Platelet Count 219 X10*3/uL (160-400); Red Blood Count 3.11 X10*6/uL (4.20-5.50); Red Cell Distribution Width 15.5 % (11.0-16.0)
[2022-08-08 07:01] LABS: Anion Gap 20 (12-20); Blood Urea Nitrogen 35 mg/dL (9-16); Calcium 8.2 mg/dL (8.4-10.2); Carbon Dioxide 28 mmol/L (22-29); Chloride 92 mmol/L (96-108); Creatinine Clr Calc Pharmacy 8.3; Estimated Glomerular Filt Rate 9; Glucose Random 144 mg/dL (60-115); Potassium 3.9 mmol/L (3.3-5.1); Sodium 136 mmol/L (135-145)
[2022-08-08 07:25] VITALS: BP 188/81; PULSE 67; RESP 18; TEMP 37.1; O2SAT 100
[2022-08-08] MEDS: cloNIDine HCL 0.2 MG TABLET PO ×2 (07:33→20:05)
[2022-08-08] MEDS: carvediloL 6.25 MG TABLET PO ×2 (07:33→20:05)
[2022-08-08] MEDS: 0.9 % Sodium Chloride Flush 3 ML SYRINGE IVFLUSH ×3 (07:33→23:37)
[2022-08-08] MEDS: dilTIAZem HCL CD 180 MG CAP.ER.24H 360 MG PO (08:51)
[2022-08-08] MEDS: Aspirin Enteric Coated 81 MG TABLET.DR PO (08:51)
[2022-08-08] MEDS: hydrALAZINE HCl 50 MG TABLET 100 MG PO ×3 (08:52→20:05)
[2022-08-08] MEDS: amLODIPine Besylate 10 MG TABLET PO (08:52)
[2022-08-08] MEDS: Buprenorphine/Naloxone 8/2 mg FILM 2 FILM SUBLINGUAL (08:52)
[2022-08-08] MEDS: Bumetanide 1 MG TABLET 2 MG PO (08:52)
[2022-08-08] MEDS: Isosorbide Dinitrate 10 MG TABLET 30 MG PO ×3 (08:53→20:17)
[2022-08-08 10:48] LABS: Appearance Urine Clear; Color Urine Yellow; Glucose Urine UA 100 mg/dL (Negative); Leukocyte Esterase Urine Negative (Negative); Nitrite Urine Negative (Negative); PH 7.5 (5.0-9.0); UMIC TRIGGER UACC YES; Urine Blood Small (1+) (Negative); Urine Ketones Negative (Negative); Urine Protein 100 (2+) mg/dL (Neg-Trace)
[2022-08-08] MEDS: diphenhydrAMINE HCL 25 MG CAPSULE PO (10:59)
[2022-08-08] MEDS: Lactulose 20 GM/30 ML SOLUTION 10 GM PO (10:59)
[2022-08-08 11:01] LABS: Bacteria Urine 2+ (None Seen)
[2022-08-08 11:02] LABS: Squamous Epithelial Cell Urine 0-2 /HPF (0-2)
[2022-08-08 11:03] LABS: Hyaline Casts Urine 0-2 /LPF (0-2); WBC Urine 0-5 /HPF (0-5)
--- NOTE | 2022-08-08 11:12 | PM.CNNEP ---
History of Present Illness Reason for Consult Consult date: 08/08/22 Reason for consult: ESRD Chief Complaint Chief complaint: lower back pain/fever History of Present Illness Narrative: 67 year old female with? 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 CUSTOMER SUPPORT ENGINEER due to nausea, vomiting, shortness of breath, cough, kidney pain and generalized weakness, patient underwent hemodialysis treatment this morning, in emergency room patient was noted to be spitting mucous, complained of right-sided mid back discomfort, she denied fever headache dizziness lightheadedness, denies sick contacts, patient complains of constipation no bowel movement in 2 weeks she normally makes urine but has had no urine output in 2 weeks, patient lives alone at home workup in the ER included a CT abdomen and pelvis showed no hydronephrosis, no renal stones, normal urinary bladder she was noted to have large stool burden? Review of Systems Review of Systems hAD BACK PAIN nO NAUSEA OR VOMITING nO DYSPNEA Yes all other systems are reviewed and are negative PMFSH Past Medical History Medical History Acute exacerbation of chronic obstructive pulmonary disease (COPD) Acute GI bleeding Anasarca Anemia Anemia in chronic kidney disease Ascites Asthma with COPD with exacerbation Constipation COVID COVID-19 virus infection Diabetes mellitus End stage renal disease on dialysis ESRD (end stage renal disease) ESRD (end stage renal disease) Essential hypertension Heart failure with preserved ejection fraction Hypertension Hypertrophic cardiomyopathy Ischemic colitis Opioid withdrawal Pulmonary congestion Family History Family History Other Hypertension Surgical History Surgical History No pertinent past surgical history Social History Social History Household Members: Caregiver Housing: House Do you presently have visiting nurse or other home services: Yes Unable to assess alcohol history related to: Unknown Alcohol intake: never Patient Tobacco Use Status: Current everyday Tobacco user Tobacco use type: Cigarette Cigarette Packs Per Day: 1 Cigarettes Per Day: 1 Years Smoked: 18 Smoked in Last 30 Days: No e-Cigarette/Vaping Use: Never Used Second Hand Smoke Exposure: No Use of substances other than those prescribed or required for medical reasons: No Substance Use Type: Crack/Cocaine Currently Displaying Signs/Symptoms of Drug Intoxication Withdrawal: No Any prior treatment program specific to substance use: No Have you been hit, kicked, punched, or otherwise hurt by someone within the past year? If so, by whom?: No Do you feel safe in your current relationship?: No Current Relationship Is there a partner from a previous relationship who is making you feel unsafe now?: No Are you made to feel afraid or neglected: No Advance Directives: Yes Advance Directives on File: Yes Advance Directives Date on File: 04/17/22 Do you have thoughts of harming others: None Recently lost weight without trying: No Eating poorly because of decreased appetite: No Nutrition Risks: No Nutritional Risk Patient : No : No Poor oral hygiene: No service: No Current occupational status: unemployed and disabled Meds Allergies Allergy/AdvReac Type Severity Reaction Status Date / Time No Known Allergies Allergy Mild NOT Verified 04/14/22 01:40 APPLICABLE Active Medications: Current Medications Acetaminophen (Acetaminophen 325 Mg Tablet) 650 mg PO Q6H PRN PRN Reason: Pain, Mild (Pain Scale 1-3) Last Admin: 08/08/22 07:33 Dose: 650 mg Albuterol Sulfate (Albuterol Sulfate 90 Mcg 8 Gm Inhaler) 2 puff INHALE Q4H PRN PRN Reason: wheezing Albuterol Sulfate (Albuterol Sulfate (0.083%) 2.5 Mg/3 Ml Vial.Neb) 2.5 mg INHALE TID PRN PRN Reason: Shortness Of Breath Amlodipine Besylate (Amlodipine Besylate 10 Mg Tablet) 10 mg PO DAILY [facility]; Protocol Last Admin: 08/08/22 08:52 Dose: 10 mg Aspirin (Aspirin Enteric Coated 81 Mg Tablet.) 81 mg PO DAILY [facility] Last Admin: 08/08/22 08:51 Dose: 81 mg Bumetanide (Bumetanide 1 Mg Tablet) 2 mg PO DAILY [facility]; Protocol Last Admin: 08/08/22 08:52 Dose: 2 mg Buprenorphine/Naloxone (Buprenorphine/Naloxone 8/2 Mg Film) 2 film SUBLINGUAL DAILY [facility] Last Admin: 08/08/22 08:52 Dose: 2 film Carvedilol (Carvedilol 6.25 Mg Tablet) 6.25 mg PO BID [facility]; Protocol Last Admin: 08/08/22 07:33 Dose: 6.25 mg Clonidine HCl (Clonidine Hcl 0.2 Mg Tablet) 0.2 mg PO BID [facility]; Protocol Last Admin: 08/08/22 07:33 Dose: 0.2 mg Diltiazem HCl (Diltiazem Hcl Cd 180 Mg Cap.Er.24h) 360 mg PO DAILY [facility]; Protocol Last Admin: 08/08/22 08:51 Dose: 360 mg Diphenhydramine HCl (Diphenhydramine Hcl 25 Mg Capsule) 25 mg PO DAILY PRN PRN Reason: allergy symptoms Last Admin: 08/08/22 10:59 Dose: 25 mg Docusate Sodium (Docusate Sodium 100 Mg Capsule) 100 mg PO BID PRN PRN Reason: Constipation Fluticasone Propionate (Fluticasone Propionate 100 Mcg Blst.W.Dev) 1 puff INHALE RBID [facility] Last Admin: 08/08/22 09:39 Dose: Not Given Heparin Sodium (Porcine) (Heparin Sodium,Porcine 5,000 Unit/Ml Vial) 5,000 unit SUBCUT Q8H [facility] Last Admin: 08/08/22 10:59 Dose: 5,000 unit Hydralazine HCl (Hydralazine Hcl 50 Mg Tablet) 100 mg PO TID [facility]; Protocol Last Admin: 08/08/22 08:52 Dose: 100 mg Isosorbide Dinitrate (Isosorbide Dinitrate 10 Mg Tablet) 30 mg PO TID [facility]; Protocol Last Admin: 08/08/22 08:53 Dose: 30 mg Lactulose (Lactulose 20 Gm/30 Ml Solution) 10 gm PO DAILY PRN PRN Reason: constipation Last Admin: 08/08/22 10:59 Dose: 10 gm Melatonin (Melatonin 3 Mg Tablet) 3 mg PO BEDTIME PRN PRN Reason: Insomnia Last Admin: 08/07/22 21:32 Dose: 3 mg Nicotine (Nicotine 21 Mg Patch.Td24) 21 mg TRANSDERMA DAILY [facility] Last Admin: 08/08/22 08:53 Dose: Not Given Ondansetron HCl (Ondansetron Hcl 4 Mg/2 Ml Vial) 4 mg IVPUSH Q8H PRN PRN Reason: Nausea and Vomiting Pharmacy Consult (Consult Rx Perform Med Rec) 1 each MISCELLANE ONCE PRN PRN Reason: Consult order Pharmacy Consult (Consult Rx Vancomycin Dosing) 1 each MISCELLANE DAILY PRN PRN Reason: Consult order Sodium Chloride (0.9 % Sodium Chloride Flush 3 Ml Syringe) 3 ml IVFLUSH QSHICHI [facility] Last Admin: 08/08/22 07:33 Dose: 3 ml Home Medications Medication Instructions Recorded Confirmed Last Taken Type buprenorphine 8 mg-naloxone 2 mg 2 strip sublingual DAILY 10/22/20 08/07/22 05/06/22 History sublingual film (Suboxone) diltiazem HCl 180 mg 360 mg PO DAILY 10/22/20 08/07/22 05/06/22 History capsule,extended release 24 hr bumetanide 2 mg tablet 2 mg PO DAILY 04/15/21 08/07/22 05/06/22 History fluticasone propionate 110 1 puff inhalation BID 04/15/21 08/07/22 Unknown History mcg/actuation HFA aerosol inhaler (Flovent HFA) melatonin 5 mg tablet 5 mg PO BEDTIME PRN Sleep 04/15/21 08/07/22 Unknown History pantoprazole 40 mg tablet,delayed 40 mg PO DAILY 04/15/21 08/07/22 05/06/22 History release sennosides 8.6 mg tablet (senna) 1 - 2 tab PO BEDTIME PRN 05/11/21 08/07/22 Unknown History constipation clonidine HCl 0.2 mg tablet 0.2 mg PO BID 07/27/21 08/07/22 05/06/22 History aspirin 81 mg tablet,delayed 1 tab PO DAILY 10/11/21 08/07/22 05/06/22 History release albuterol sulfate 90 mcg/actuation 2 puff inhalation Q4H PRN wheezing 01/31/22 08/07/22 Unknown History aerosol inhaler (Ventolin HFA) ondansetron 4 mg disintegrating 4 mg PO BID PRN nausea and vomiting 03/09/22 08/07/22 Unknown History tablet carvedilol 6.25 mg tablet 1 tab PO BID 04/24/22 08/07/22 05/06/22 History albuterol sulfate 2.5 mg/3 mL 1 amp inhalation TID PRN Shortness 05/08/22 08/07/22 Unknown History (0.083 %) solution for nebulization Of Breath amlodipine 10 mg tablet 10 mg PO DAILY 07/10/22 08/07/22 Unknown History hydralazine 100 mg tablet 100 mg PO TID 07/10/22 08/07/22 Unknown History isosorbide dinitrate 30 mg tablet 30 mg PO TID 07/10/22 08/07/22 Unknown History nicotine 21 mg/24 hr daily 1 patch topical DAILY 08/07/22 08/07/22 Unknown History transdermal patch Physical Exam Vital Signs: Last Vital Signs Temp 98.8 F 08/08/22 07:25 Pulse 67 08/08/22 07:25 Resp 18 08/08/22 07:25 BP 188/81 H 08/08/22 07:25 Pulse Ox 100 08/08/22 07:25 O2 Del Method 08/08/22 07:25 BMI result Body Mass Index 22.4 Gen:? Awake alert x3, in no acute distress HEENT: sclera anicteric, moist mucus membranes Neck: supple Lungs:? Few expiratory wheeze, bilaterally Heart: regular rate and rhythm, no murmurs Abd: soft, distended, nontender bowel sounds audible Back no CVA tenderness Ext: no edema Skin: warm/well-perfused Neuro: alert and oriented x3, no focal findings Psych: appropriate affect Results Lab Results 08/08/22 05:04 08/08/22 05:04 Lab results: Chemistry 08/07/22 08/08/22 04:36 05:04 Sodium 139 136 Potassium 3.9 3.9 Carbon Dioxide 29 28 BUN 20 H 35 H Creatinine 3.52 H 4.77 H* Calcium 9.2 D 8.2 L D Hematology 08/07/22 08/08/22 15:32 05:04 WBC 17.7 H 15.0 H Hgb 10.5 L 9.7 L Plt Count 250 D 219 Urinalysis 08/08/22 10:30 Urine Color Yellow Urine Appearance Clear Urine pH 7.5 Ur Specific [place] 1.020 Urine Protein 100 (2+) H Urine Glucose (UA) 100 H Urine Ketones Negative Urine Blood Small (1+) H Urine Nitrite Negative Ur Leukocyte Esterase Negative Urine RBC 3-5 H Urine WBC 0-5 Ur Squamous Epith Cells 0-2 Hyaline Casts 0-2 Assessment and Plan (1) End stage chronic kidney disease: Status: Acute Plan 67 YR old woman with ESRD and Fever Work up in progress fir sepsis Gram stain positive for GPC Culture pending Agree with Vanco Will arrange for HD on sunday Time Spent With Patient Time: Total time managing care of this patient today ____ minutes. Procedures Date of Service Date of Service: 08/08/22
--- NOTE | 2022-08-08 11:49 | PHA.PROG ---
Admission Date/Time: August 07, 2022 18:22 Indication: BACTEREMIA Weight in k kg Adjusted body weight in Kg: [place] body weight in Kg: Obesity Dosing Indication % IBW: Serum Creatinine - Last 168 Hours 08/07/22 08/08/22 04:36 05:04 Creatinine 3.52 H 4.77 H* Estimated CrCl and GFR - Last 168 Hours 08/07/22 08/08/22 04:36 05:04 Estim Creat Clear Calc 11.2 8.3 Estimated GFR 13 9 Vancomycin Loading Dose: 1250 MG X 1 Current Vancomycin Dosing Regimen: BASED OFF LOEVEL Vancomycin Monitoring using AUC goal of 400 - 600 range with trough as surrogate marker: Date and Time for next Vancomycin Level to be drawn: 08/09 AFTER DIALYSIS (TBD) Pharmacist Comments on Vancomycin Plan: WILL DOSE BASED ON LEVEL Vancomycin dosing will take advantage of [employer] as a clinical decision support tool that uses Bayesian modeling to calculate individual patient's pharmacokinetic parameters and forecast the patient's drug concentration time course with the target goal AUC 24 range of 400 - 600 mg/L/hr.
--- NOTE | 2022-08-08 13:18 | P.PNIM_ITS ---
Subjective Subjective Date of Service: 08/08/22 Interval History: Resting comfortably, feeling better denies fever, chills, no nausea, no vomiting, no cough, no shortness of breath, no recurrent fever since admission, blood cultures x2 positive for Gram-positive cocci on stain only, repeat blood cultures obtained this morning, patient denies redness, no joint pains. Review of Systems Review of Systems: Yes all other systems are reviewed and are negative Physical Exam Vital Signs: Vital Signs: Last Vital Signs Temp 98.8 F 08/08/22 07:25 Pulse 67 08/08/22 07:25 Resp 18 08/08/22 07:25 BP 188/81 H 08/08/22 07:25 Pulse Ox 100 08/08/22 07:25 O2 Del Method 08/08/22 07:25 BMI result Body Mass Index 22.4 Const: Other: Gen:? Awake alert x3, no acute distress HEENT: sclera anicteric, moist mucus membranes Neck: supple Right anterior chest wall at site of hemodialysis catheter with no surrounding redness, swelling or tenderness. Lungs: Clear? To auscultation bilaterally no rhonchi few expiratory wheeze Heart: regular rate and rhythm, no murmurs Abd: soft, distended, nontender bowel sounds audible Back no CVA tenderness Ext: no edema Skin: warm/well-perfused Neuro: alert and oriented x3, no focal findings Psych: appropriate affect Objective Data Active Medications Acetaminophen (Acetaminophen 325 Mg Tablet) 650 mg PO Q6H PRN PRN Reason: Pain, Mild (Pain Scale 1-3) Last Admin: 08/08/22 07:33 Dose: 650 mg Documented By: MARTIN Albuterol Sulfate (Albuterol Sulfate 90 Mcg 8 Gm Inhaler) 2 puff INHALE Q4H PRN PRN Reason: wheezing Albuterol Sulfate (Albuterol Sulfate (0.083%) 2.5 Mg/3 Ml Vial.Neb) 2.5 mg INHALE TID PRN PRN Reason: Shortness Of Breath Amlodipine Besylate (Amlodipine Besylate 10 Mg Tablet) 10 mg PO DAILY [facility]; Protocol Last Admin: 08/08/22 08:52 Dose: 10 mg Documented By: MARTIN Aspirin (Aspirin Enteric Coated 81 Mg Tablet.) 81 mg PO DAILY [facility] Last Admin: 08/08/22 08:51 Dose: 81 mg Documented By: MARTIN Bumetanide (Bumetanide 1 Mg Tablet) 2 mg PO DAILY [facility]; Protocol Last Admin: 08/08/22 08:52 Dose: 2 mg Documented By: MARTIN Buprenorphine/Naloxone (Buprenorphine/Naloxone 8/2 Mg Film) 2 film SUBLINGUAL DAILY [facility] Last Admin: 08/08/22 08:52 Dose: 2 film Documented By: MARTIN Carvedilol (Carvedilol 6.25 Mg Tablet) 6.25 mg PO BID [facility]; Protocol Last Admin: 08/08/22 07:33 Dose: 6.25 mg Documented By: MARTIN Clonidine HCl (Clonidine Hcl 0.2 Mg Tablet) 0.2 mg PO BID [facility]; Protocol Last Admin: 08/08/22 07:33 Dose: 0.2 mg Documented By: MARTIN Diltiazem HCl (Diltiazem Hcl Cd 180 Mg Cap.Er.24h) 360 mg PO DAILY [facility]; Protocol Last Admin: 08/08/22 08:51 Dose: 360 mg Documented By: MARTIN Diphenhydramine HCl (Diphenhydramine Hcl 25 Mg Capsule) 25 mg PO DAILY PRN PRN Reason: allergy symptoms Last Admin: 08/08/22 10:59 Dose: 25 mg Documented By: TONIE Docusate Sodium (Docusate Sodium 100 Mg Capsule) 100 mg PO BID PRN PRN Reason: Constipation Fluticasone Propionate (Fluticasone Propionate 100 Mcg Blst.W.Dev) 1 puff INHALE RBID [facility] Last Admin: 08/08/22 09:39 Dose: Not Given Documented By: CLARISSA Non-Admin Reason: See Note Heparin Sodium (Porcine) (Heparin Sodium,Porcine 5,000 Unit/Ml Vial) 5,000 unit SUBCUT Q8H [facility] Last Admin: 08/08/22 10:59 Dose: 5,000 unit Documented By: TONIE Hydralazine HCl (Hydralazine Hcl 50 Mg Tablet) 100 mg PO TID [facility]; Protocol Last Admin: 08/08/22 08:52 Dose: 100 mg Documented By: MARTIN Vancomycin HCl 500 mg/ Sodium (Chloride) 110 mls @ 110 mls/hr IV [id number] [facility] Isosorbide Dinitrate (Isosorbide Dinitrate 10 Mg Tablet) 30 mg PO TID [facility]; Protocol Last Admin: 08/08/22 08:53 Dose: 30 mg Documented By: MARTIN Lactulose (Lactulose 20 Gm/30 Ml Solution) 10 gm PO DAILY PRN PRN Reason: constipation Last Admin: 08/08/22 10:59 Dose: 10 gm Documented By: FABBYGJ Melatonin (Melatonin 3 Mg Tablet) 3 mg PO BEDTIME PRN PRN Reason: Insomnia Last Admin: 08/07/22 21:32 Dose: 3 mg Documented By: DAVIDILEbenezer Nicotine (Nicotine 21 Mg Patch.Td24) 21 mg TRANSDERMA DAILY [facility] Last Admin: 08/08/22 08:53 Dose: Not Given Documented By: MARTIN Non-Admin Reason: Patient Refused Ondansetron HCl (Ondansetron Hcl 4 Mg/2 Ml Vial) 4 mg IVPUSH Q8H PRN PRN Reason: Nausea and Vomiting Pharmacy Consult (Consult Rx Perform Med Rec) 1 each MISCELLANE ONCE PRN PRN Reason: Consult order Sodium Chloride (0.9 % Sodium Chloride Flush 3 Ml Syringe) 3 ml IVFLUSH QSALFT [facility] Last Admin: 08/08/22 07:33 Dose: 3 ml Documented By: MARTIN Labs 08/08/22 05:04 08/08/22 05:04 Labs: Laboratory Results - last 24 hr 08/07/22 08/07/22 08/07/22 04:36 15:00 15:32 MCV 97.6 MCH 31.5 MCHC 32.3 RDW 15.3 Plt Count 250 D MPV 9.8 Immature Gran % (Auto) 1.4 H Neut % (Auto) 89.0 H Lymph % (Auto) 1.9 L [place] % (Auto) 7.4 Eos % (Auto) 0.1 Baso % (Auto) 0.2 Lymph # (Auto) 0.3 L [place] # (Auto) 1.3 H Eos # (Auto) 0.0 Baso # (Auto) 0.0 Abs Immat Gran (auto) 0.24 H Absolute Neuts (auto) 15.8 H Absolute Nucleated RBC 0.120 H Nucleated RBC % (auto) 0.7 H ESR PT INR Anion Gap 20 Estim Creat Clear Calc 11.2 Estimated GFR 13 Random Glucose 157 H Lactic Acid 1.1 Calcium 9.2 D Magnesium 1.9 Total Bilirubin 0.6 AST 66 H ALT 49 H Alkaline Phosphatase 283 H Troponin I High Sens C-Reactive Protein Total Protein 7.5 Albumin 4.0 Urine Color Urine Appearance Urine pH Ur Specific [place] Urine Protein Urine Glucose (UA) Urine Ketones Urine Blood Urine Nitrite Ur Leukocyte Esterase Urine RBC Urine WBC Ur Squamous Epith Cells Urine Bacteria Hyaline Casts Influenza Type A (PCR) Influenza Type B (PCR) RSV RNA Qual (PCR) SARS-CoV-2 RNA (RT-PCR) 08/07/22 08/07/22 08/07/22 15:32 15:32 15:33 MCV MCH MCHC RDW Plt Count MPV Immature Gran % (Auto) Neut % (Auto) Lymph % (Auto) [place] % (Auto) Eos % (Auto) Baso % (Auto) Lymph # (Auto) [place] # (Auto) Eos # (Auto) Baso # (Auto) Abs Immat Gran (auto) Absolute Neuts (auto) Absolute Nucleated RBC Nucleated RBC % (auto) ESR 74 H PT 12.4 INR 1.1 Anion Gap Estim Creat Clear Calc Estimated GFR Random Glucose Lactic Acid Calcium Magnesium Total Bilirubin AST ALT Alkaline Phosphatase Troponin I High Sens C-Reactive Protein 10.55 H Total Protein Albumin Urine Color Urine Appearance Urine pH Ur Specific [place] Urine Protein Urine Glucose (UA) Urine Ketones Urine Blood Urine Nitrite Ur Leukocyte Esterase Urine RBC Urine WBC Ur Squamous Epith Cells Urine Bacteria Hyaline Casts Influenza Type A (PCR) Influenza Type B (PCR) RSV RNA Qual (PCR) SARS-CoV-2 RNA (RT-PCR) 08/07/22 08/07/22 08/07/22 15:33 15:33 17:56 MCV MCH MCHC RDW Plt Count MPV Immature Gran % (Auto) Neut % (Auto) Lymph % (Auto) [place] % (Auto) Eos % (Auto) Baso % (Auto) Lymph # (Auto) [place] # (Auto) Eos # (Auto) Baso # (Auto) Abs Immat Gran (auto) Absolute Neuts (auto) Absolute Nucleated RBC Nucleated RBC % (auto) ESR PT INR Anion Gap Estim Creat Clear Calc Estimated GFR Random Glucose Lactic Acid Calcium Magnesium Total Bilirubin AST ALT Alkaline Phosphatase Troponin I High Sens 89.5 H* D 96.9 H* C-Reactive Protein Total Protein Albumin Urine Color Urine Appearance Urine pH Ur Specific [place] Urine Protein Urine Glucose (UA) Urine Ketones Urine Blood Urine Nitrite Ur Leukocyte Esterase Urine RBC Urine WBC Ur Squamous Epith Cells Urine Bacteria Hyaline Casts Influenza Type A (PCR) NEGATIVE Influenza Type B (PCR) NEGATIVE RSV RNA Qual (PCR) NEGATIVE SARS-CoV-2 RNA (RT-PCR) NEGATIVE 08/08/22 08/08/22 08/08/22 05:04 05:04 10:30 MCV 98.4 H MCH 31.2 MCHC 31.7 RDW 15.5 Plt Count 219 MPV 9.9 Immature Gran % (Auto) Neut % (Auto) Lymph % (Auto) [place] % (Auto) Eos % (Auto) Baso % (Auto) Lymph # (Auto) [place] # (Auto) Eos # (Auto) Baso # (Auto) Abs Immat Gran (auto) Absolute Neuts (auto) Absolute Nucleated RBC 0.020 H Nucleated RBC % (auto) 0.1 ESR PT INR Anion Gap 20 Estim Creat Clear Calc 8.3 Estimated GFR 9 Random Glucose 144 H Lactic Acid Calcium 8.2 L D Magnesium Total Bilirubin AST ALT Alkaline Phosphatase Troponin I High Sens C-Reactive Protein Total Protein Albumin Urine Color Yellow Urine Appearance Clear Urine pH 7.5 Ur Specific [place] 1.020 Urine Protein 100 (2+) H Urine Glucose (UA) 100 H Urine Ketones Negative Urine Blood Small (1+) H Urine Nitrite Negative Ur Leukocyte Esterase Negative Urine RBC 3-5 H Urine WBC 0-5 Ur Squamous Epith Cells 0-2 Urine Bacteria 2+ Hyaline Casts 0-2 Influenza Type A (PCR) Influenza Type B (PCR) RSV RNA Qual (PCR) SARS-CoV-2 RNA (RT-PCR) Microbiology Microbiology Results: Microbiology 08/07/22 15:32 Blood Culture - Preliminary Blood - Venous Prelim: GPC Gram Stain only 08/07/22 15:00 Blood Culture - Preliminary Blood - Venous Prelim: GPC Gram Stain only Assessment and Plan (1) Bacteremia: Status: Acute (2) Tachycardia: Status: Acute (3) Leukocytosis: Status: Acute (4) Fever: Status: Acute (5) End stage chronic kidney disease: Status: Acute Plan 67 yo F with a PMH of ESRD on HD MWF, HTN, chronic opiate dependence on suboxone, DM, HFpEF who presents with multiple complaints. Work up on the ED reveals fluid overload secondary to CHF and ESRD + multilobar pneumonia. She will be admitted for further work up. 1. Gram-positive bacteremia No recurrent Fever, WBC trending down, tachycardia resolved CT abdomen and chest showed no acute abnormality other than large stool burden, UA 2+ bacteria with no nitrates no leukocyte Estrace less likely UTI no redness , no swelling or tenderness around hemodialysis catheter, follow repeat blood cultures, follow CBC Obtain ID consult, continue IV vancomycin 2. chronic respiratory failure with hypoxia ? ? Stable oxygenation 3. ESRD on HD continue hemodialysis as per Nephrology 4. HTN?? chronically elevated BP, cont. home medications follow blood pressure closely. 5. Constipation no respond to lactulose, scheduled MiraLax and stool softeners. 6. Chronic COPD no acute exacerbation, continue home inhalers. 7. Tobacco use disorder continue nicotine patch. Full Code DVT pptx, subcut. heparin Given patient's multiple chronic co-morbidities , with Gram-positive bacteremia will continue IV antibiotics and further workup for source of infection . Time Spent With Patient Time: Total time managing care of this patient today ____ minutes. Quality Stroke Does the patient have a stroke diagnosis?: No VTE Prior VTE?: No VTE Risk Level:: Medical - moderate - high VTE Device Contraindication: Treatment Not Indicated VTE Drug Contraindication: N/A - Med Ordered
[2022-08-08] MEDS: polyethylene glycoL 3350 17 GM POWD.PACK PO (14:25)
[2022-08-08] MEDS: Lactulose 20 GM/30 ML SOLUTION PO (14:25)
[2022-08-08 15:00] VITALS: BP 111/59; PULSE 64; RESP 17; TEMP 36.6; O2SAT 94
--- NOTE | 2022-08-08 15:12 | P.CNID_ITS ---
History of Present Illness Data of Consult Service Date: 08/08/22 Requesting physician: Aracelis Zuleta Primary Care Provider: Sammy Vicente MD HPI Reason for consult: bacteremia She presents to hospital with nausea and vomiting and phlegm production. She has right chest portacath and reportedly missed three days dialysis treatment. She has fever and feels unwell by report. Blood cultures gram positive bacteremia on 08/07. Review of Systems Review of Systems: Yes all other systems are reviewed and are negative [facility] Past Medical History Medical History (Updated 08/08/22 @ 15:18 by Shanique Brito MD) Acute exacerbation of chronic obstructive pulmonary disease (COPD) Acute GI bleeding Anasarca Anemia Anemia in chronic kidney disease Ascites Asthma with COPD with exacerbation Constipation COVID COVID-19 virus infection Diabetes mellitus End stage renal disease on dialysis ESRD (end stage renal disease) ESRD (end stage renal disease) Essential hypertension Heart failure with preserved ejection fraction Hypertension Hypertrophic cardiomyopathy Ischemic colitis Opioid withdrawal Pulmonary congestion Sepsis Family History Family History Other Hypertension Family history: reviewed and not pertinent Surgical History Surgical History No pertinent past surgical history Social History Social History Household Members: Caregiver Housing: House Do you presently have visiting nurse or other home services: Yes Unable to assess alcohol history related to: Unknown Alcohol intake: never Patient Tobacco Use Status: Current everyday Tobacco user Tobacco use type: Cigarette Cigarette Packs Per Day: 1 Cigarettes Per Day: 1 Years Smoked: 18 Smoked in Last 30 Days: No e-Cigarette/Vaping Use: Never Used Second Hand Smoke Exposure: No Use of substances other than those prescribed or required for medical reasons: No Substance Use Type: Crack/Cocaine Currently Displaying Signs/Symptoms of Drug Intoxication Withdrawal: No Any prior treatment program specific to substance use: No Have you been hit, kicked, punched, or otherwise hurt by someone within the past year? If so, by whom?: No Do you feel safe in your current relationship?: No Current Relationship Is there a partner from a previous relationship who is making you feel unsafe now?: No Are you made to feel afraid or neglected: No Advance Directives: Yes Advance Directives on File: Yes Advance Directives Date on File: 04/17/22 Do you have thoughts of harming others: None Recently lost weight without trying: No Eating poorly because of decreased appetite: No Nutrition Risks: No Nutritional Risk Patient : No : No Poor oral hygiene: No service: No Current occupational status: unemployed and disabled Meds Allergies Allergy/AdvReac Type Severity Reaction Status Date / Time No Known Allergies Allergy Mild NOT Verified 04/14/22 01:40 APPLICABLE Active Medications: Current Medications Acetaminophen (Acetaminophen 325 Mg Tablet) 650 mg PO Q6H PRN PRN Reason: Pain, Mild (Pain Scale 1-3) Last Admin: 08/08/22 07:33 Dose: 650 mg Albuterol Sulfate (Albuterol Sulfate 90 Mcg 8 Gm Inhaler) 2 puff INHALE Q4H PRN PRN Reason: wheezing Albuterol Sulfate (Albuterol Sulfate (0.083%) 2.5 Mg/3 Ml Vial.Neb) 2.5 mg INHALE TID PRN PRN Reason: Shortness Of Breath Amlodipine Besylate (Amlodipine Besylate 10 Mg Tablet) 10 mg PO DAILY PHAN; Protocol Last Admin: 08/08/22 08:52 Dose: 10 mg Aspirin (Aspirin Enteric Coated 81 Mg Tablet.Dr) 81 mg PO DAILY [facility]AN Last Admin: 08/08/22 08:51 Dose: 81 mg Bumetanide (Bumetanide 1 Mg Tablet) 2 mg PO DAILY [facility]; Protocol Last Admin: 08/08/22 08:52 Dose: 2 mg Buprenorphine/Naloxone (Buprenorphine/Naloxone 8/2 Mg Film) 2 film SUBLINGUAL DAILY PHAN Last Admin: 08/08/22 08:52 Dose: 2 film Carvedilol (Carvedilol 6.25 Mg Tablet) 6.25 mg PO BID [facility]AN; Protocol Last Admin: 08/08/22 07:33 Dose: 6.25 mg Clonidine HCl (Clonidine Hcl 0.2 Mg Tablet) 0.2 mg PO BID [facility]; Protocol Last Admin: 08/08/22 07:33 Dose: 0.2 mg Diltiazem HCl (Diltiazem Hcl Cd 180 Mg Cap.Er.24h) 360 mg PO DAILY PHAN; Protocol Last Admin: 08/08/22 08:51 Dose: 360 mg Diphenhydramine HCl (Diphenhydramine Hcl 25 Mg Capsule) 25 mg PO DAILY PRN PRN Reason: allergy symptoms Last Admin: 08/08/22 10:59 Dose: 25 mg Docusate Sodium (Docusate Sodium 100 Mg Capsule) 100 mg PO BID [facility] Fluticasone Propionate (Fluticasone Propionate 100 Mcg Blst.W.Dev) 1 puff INHALE RBID [facility] Last Admin: 08/08/22 09:39 Dose: Not Given Heparin Sodium (Porcine) (Heparin Sodium,Porcine 5,000 Unit/Ml Vial) 5,000 unit SUBCUT Q8H [facility] Last Admin: 08/08/22 10:59 Dose: 5,000 unit Hydralazine HCl (Hydralazine Hcl 50 Mg Tablet) 100 mg PO TID [facility]; Protocol Last Admin: 08/08/22 14:25 Dose: 100 mg Vancomycin HCl 500 mg/ Sodium (Chloride) 110 mls @ 110 mls/hr IV [id number] [facility] Isosorbide Dinitrate (Isosorbide Dinitrate 10 Mg Tablet) 30 mg PO TID [facility]; Protocol Last Admin: 08/08/22 14:29 Dose: 30 mg Lactulose (Lactulose 20 Gm/30 Ml Solution) 10 gm PO DAILY PRN PRN Reason: constipation Last Admin: 08/08/22 10:59 Dose: 10 gm Melatonin (Melatonin 3 Mg Tablet) 3 mg PO BEDTIME PRN PRN Reason: Insomnia Last Admin: 08/07/22 21:32 Dose: 3 mg Nicotine (Nicotine 21 Mg Patch.Td24) 21 mg TRANSDERMA DAILY [facility] Last Admin: 08/08/22 08:53 Dose: Not Given Ondansetron HCl (Ondansetron Hcl 4 Mg/2 Ml Vial) 4 mg IVPUSH Q8H PRN PRN Reason: Nausea and Vomiting Pharmacy Consult (Consult Rx Perform Med Rec) 1 each MISCELLANE ONCE PRN PRN Reason: Consult order Polyethylene Glycol (Polyethylene Glycol 3350 17 Gm Powd.Pack) 17 gm PO DAILY [facility] Last Admin: 08/08/22 14:25 Dose: 17 gm Sodium Chloride (0.9 % Sodium Chloride Flush 3 Ml Syringe) 3 ml IVFLUSH QSHIFT [facility] Last Admin: 08/08/22 14:30 Dose: 3 ml Home Medications Medication Instructions Recorded Confirmed Last Taken Type buprenorphine 8 mg-naloxone 2 mg 2 strip sublingual DAILY 10/22/20 08/07/22 05/06/22 History sublingual film (Suboxone) diltiazem HCl 180 mg 360 mg PO DAILY 10/22/20 08/07/22 05/06/22 History capsule,extended release 24 hr bumetanide 2 mg tablet 2 mg PO DAILY 04/15/21 08/07/22 05/06/22 History fluticasone propionate 110 1 puff inhalation BID 04/15/21 08/07/22 Unknown History mcg/actuation HFA aerosol inhaler (Flovent HFA) melatonin 5 mg tablet 5 mg PO BEDTIME PRN Sleep 04/15/21 08/07/22 Unknown History pantoprazole 40 mg tablet,delayed 40 mg PO DAILY 04/15/21 08/07/22 05/06/22 History release sennosides 8.6 mg tablet (senna) 1 - 2 tab PO BEDTIME PRN 05/11/21 08/07/22 Unknown History constipation clonidine HCl 0.2 mg tablet 0.2 mg PO BID 07/27/21 08/07/22 05/06/22 History aspirin 81 mg tablet,delayed 1 tab PO DAILY 10/11/21 08/07/22 05/06/22 History release albuterol sulfate 90 mcg/actuation 2 puff inhalation Q4H PRN wheezing 01/31/22 08/07/22 Unknown History aerosol inhaler (Ventolin HFA) ondansetron 4 mg disintegrating 4 mg PO BID PRN nausea and vomiting 03/09/22 08/07/22 Unknown History tablet carvedilol 6.25 mg tablet 1 tab PO BID 04/24/22 08/07/22 05/06/22 History albuterol sulfate 2.5 mg/3 mL 1 amp inhalation TID PRN Shortness 05/08/22 08/07/22 Unknown History (0.083 %) solution for nebulization Of Breath amlodipine 10 mg tablet 10 mg PO DAILY 07/10/22 08/07/22 Unknown History hydralazine 100 mg tablet 100 mg PO TID 07/10/22 08/07/22 Unknown History isosorbide dinitrate 30 mg tablet 30 mg PO TID 07/10/22 08/07/22 Unknown History nicotine 21 mg/24 hr daily 1 patch topical DAILY 08/07/22 08/07/22 Unknown History transdermal patch Physical Exam Vital Signs: Vital Signs: Last Vital Signs Temp 97.8 F 08/08/22 15:00 Pulse 64 08/08/22 15:00 Resp 17 08/08/22 15:00 BP 111/59 L 08/08/22 15:00 Pulse Ox 94 08/08/22 15:00 O2 Del Method 08/08/22 15:00 BMI result Body Mass Index 22.4 Const: General: cooperative HEENT: Head: Yes normal to inspection Face and sinus: Yes normal facial exam Mouth: Normal oral and palatal mucosa present Teeth and gingiva: dentition normal Eyes: General: appearance normal, both eyes and all related structures Pupils: Equal, round and reactive pupils present Resp: Effort & Inspection: normal respiratory effort Cardio: Other: 2/6 [place] Rate: regular rate Rhythm: regular rhythm GI: Palpation (GI): Soft to palpation and nontender : General: Yes no CVA tenderness Back/Spine/Pelvis: Back: no CVA tenderness Skin: General skin exam: no rashes or lesions noted Neuro: General: moves all extremities Cranial nerves: Yes Equal, round and reactive pupils present Extrem: General: Yes normal to inspection Psych: Appearance: grossly normal Results Labs 08/08/22 05:04 08/08/22 05:04 Labs: Short CBC 08/07/22 08/08/22 Range/Units 15:32 05:04 WBC 17.7 H 15.0 H (4.8-10.8) X10*3/uL Hgb 10.5 L 9.7 L (12.0-16.0) g/dl Hct 32.5 L 30.6 L (37.0-47.0) % Plt Count 250 D 219 (160-400) X10*3/uL BMP 08/07/22 08/08/22 04:36 05:04 Sodium 139 136 Potassium 3.9 3.9 Chloride 94 L 92 L Carbon Dioxide 29 28 BUN 20 H 35 H Creatinine 3.52 H 4.77 H* Calcium 9.2 D 8.2 L D Liver Function 08/07/22 Range/Units 04:36 Total Bilirubin 0.6 (0.0-1.0) mg/dL AST 66 H (5-31) U/L ALT 49 H (0-31) U/L Alkaline Phosphatase 283 H (39-117) U/L Albumin 4.0 (3.5-5.0) g/dL Urine 08/08/22 Range/Units 10:30 Urine Color Yellow Urine Appearance Clear Urine pH 7.5 (5.0-9.0) Ur Specific [place] 1.020 (1.005-1.025) Urine Protein 100 (2+) H (Neg-Trace) mg/dL Urine Glucose (UA) 100 H (Negative) mg/dL Microbiology Microbiology Results: Microbiology 08/07/22 15:32 Blood - Venous Blood Culture - Preliminary Prelim: GPC Gram Stain only 08/07/22 15:00 Blood - Venous Blood Culture - Preliminary Prelim: GPC Gram Stain only Assessment and Plan (1) Sepsis: Status: Acute She has fever and leukocytosis and now bacteremia. It is possible that it is staph or strep She has no complaints now but has heart murmur. Plan Would continue Vancomycin with HD. Treatment depends if staph or strep but central dialysis line will need removal if staph aureus. She also needs echo Likely she will need four weeks IV antibiotics at dialysis but there is no other source seen at this time. Time Spent With Patient Time: Total time managing care of this patient today ____ minutes.
[2022-08-08] MEDS: ondansetron HCL 4 MG/2 ML VIAL IVPUSH (16:16)
[2022-08-08 19:28] VITALS: BP 142/64; PULSE 66; RESP 16; TEMP 36.3; O2SAT 94
[2022-08-08] MEDS: Docusate Sodium 100 MG CAPSULE PO (20:05)
[2022-08-08] MEDS: Fluticasone Propionate 100 MCG BLST.W.DEV 1 PUFF INHALE (20:46)
[2022-08-09] VITALS (7 sets, daily range): BP systolic 94–121; BP diastolic 50–61; PULSE 58–94; RESP 16–17; TEMP 36.1–37.4; O2SAT 92–96
[2022-08-09] MEDS: Heparin Sodium,Porcine 5,000 UNIT/ML VIAL 5000 UNIT SUBCUT ×3 (02:11→18:01)
[2022-08-09] MEDS: Melatonin 3 MG TABLET PO ×2 (02:13→20:42)
[2022-08-09 06:30] LABS: Hematocrit 29.5 % (37.0-47.0); Hemoglobin 9.3 g/dl (12.0-16.0); Mean Corpuscular HGB Conc 31.5 g/dl (31.0-35.0); Mean Corpuscular Hemoglobin 30.9 pg (27.0-33.0); Mean Platelet Volume 10.6 fL (9.4-12.3); Platelet Count 188 X10*3/uL (160-400); Red Blood Count 3.01 X10*6/uL (4.20-5.50); Red Cell Distribution Width 15.3 % (11.0-16.0); White Blood Count 8.4 X10*3/uL (4.8-10.8)
--- NOTE | 2022-08-09 10:24 | W.PM.DNNEP ---
Subjective Subjective This patient was seen during dialysis. Interval history: Resting comfortably, feeling better denies fever, chills, no nausea, no vomiting, no cough, no shortness of breath, no recurrent fever since admission, blood cultures x2 positive for Gram-positive cocci on stain only, repeat blood cultures obtained this morning, patient denies redness, no joint pains. Physical Exam Vital Signs: Vital Signs: Last Vital Signs Temp 98.8 F 08/09/22 10:10 Pulse 63 08/09/22 10:10 Resp 16 08/09/22 10:10 BP 121/61 08/09/22 10:10 Pulse Ox 94 08/09/22 10:10 O2 Del Method 08/09/22 10:10 BMI result Body Mass Index 22.4 Const: Other: Gen:? Awake alert x3, no acute distress HEENT: sclera anicteric, moist mucus membranes Neck: supple Right anterior chest wall at site of hemodialysis catheter with no surrounding redness, swelling or tenderness. Lungs: Clear? To auscultation bilaterally no rhonchi few expiratory wheeze Heart: regular rate and rhythm, no murmurs Abd: soft, distended, nontender bowel sounds audible Back no CVA tenderness Ext: no edema Skin: warm/well-perfused Neuro: alert and oriented x3, no focal findings Psych: appropriate affect Assessment & Plan Assessment and plan (1) End stage chronic kidney disease: Status: Acute Plan 67 YR old woman with ESRD and Fever Work up in progress for sepsis Gram stain positive for GPC Culture negative thus far Agree with antibiotic coverage HD on MWF Time Spent With Patient Time: Total time managing care of this patient today ____ minutes. Procedures Date of Service Date of Service: 08/09/22
[2022-08-09] MEDS: dilTIAZem HCL CD 180 MG CAP.ER.24H 360 MG PO (10:32)
[2022-08-09] MEDS: hydrALAZINE HCl 50 MG TABLET 100 MG PO ×2 (10:32→14:18)
[2022-08-09] MEDS: carvediloL 6.25 MG TABLET PO ×2 (10:33→20:43)
[2022-08-09] MEDS: Isosorbide Dinitrate 10 MG TABLET 30 MG PO ×3 (10:33→20:43)
[2022-08-09] MEDS: Aspirin Enteric Coated 81 MG TABLET.DR PO (10:33)
[2022-08-09] MEDS: Bumetanide 1 MG TABLET 2 MG PO (10:33)
--- NOTE | 2022-08-09 10:33 | MHC.CM.PN ---
Female 67 DX Lower back pain, Fever. Per MD rounds no discharge today. Final cultures are pending. DP Home with resumption of services. [facility] @ [facility]. Med management Lock box provided by [employer]. [employer] services including transport home.
[2022-08-09] MEDS: amLODIPine Besylate 10 MG TABLET PO (10:34)
[2022-08-09] MEDS: Buprenorphine/Naloxone 8/2 mg FILM 2 FILM SUBLINGUAL (10:34)
[2022-08-09] MEDS: cloNIDine HCL 0.2 MG TABLET PO ×2 (10:34→20:43)
[2022-08-09] MEDS: 0.9 % Sodium Chloride Flush 3 ML SYRINGE IVFLUSH ×3 (10:34→20:43)
[2022-08-09] MEDS: Nicotine 21 MG PATCH.TD24 TRANSDERMA (10:35)
[2022-08-09] MEDS: polyethylene glycoL 3350 17 GM POWD.PACK PO (10:35)
[2022-08-09] MEDS: Docusate Sodium 100 MG CAPSULE PO ×2 (10:35→20:43)
[2022-08-09] MEDS: ondansetron HCL 4 MG/2 ML VIAL IVPUSH ×2 (10:46→20:42)
[2022-08-09 12:33] LABS: Vancomycin Random 11.6 mcg/mL (15-20)
--- NOTE | 2022-08-09 12:45 | HE.PHANOTE ---
vancomycin dosing post diaylsis level is 11.6. Will give one time dose of vanco 500 mg. will follow-up daily on diaylsis days. Jill Cohn, [place]
[2022-08-09] MEDS: vancomycin HCL 500 MG in 0.9 % Sodium Chloride 100 ML 110 MG IV (13:07)
--- NOTE | 2022-08-09 14:37 | P.PNIM_ITS ---
Subjective Subjective Date of Service: 08/09/22 Interval History: Being followed for bacteremia patient offers no complaints of fever chills, no cough, no nausea, no vomiting patient tolerated hemodialysis this morning. Review of Systems Review of Systems: Yes all other systems are reviewed and are negative Physical Exam Vital Signs: Vital Signs: Last Vital Signs Temp 98.8 F 08/09/22 10:10 Pulse 62 08/09/22 14:33 Resp 16 08/09/22 10:10 BP 102/57 L 08/09/22 14:33 Pulse Ox 94 08/09/22 10:10 O2 Del Method 08/09/22 10:10 BMI result Body Mass Index 22.4 Const: Other: Gen:? Awake alert x3, no acute distr ess HEENT: sclera anicteric, moist m ucus membranes Nec k: supple Right an terior chest wall at site of hemodia lysis catheter wit h no surrounding r edness, swelling o r tenderness. Lung s:? Clear? To ausc ultation bilateral ly no rhonchi few expiratory wheeze Heart: regular rat e and rhythm, no m urmurs Abd: soft, distended, nontend er bowel sounds au dible Back no CVA tenderness Ext: no edema Skin: warm/ well-perfused Neur o: alert and orien kalen x3, no focal f indings Psych: ange ropriate affect Objective Data Active Medications Acetaminophen (Acetaminophen 325 Mg Tablet) 650 mg PO Q6H PRN PRN Reason: Pain, Mild (Pain Scale 1-3) Last Admin: 08/08/22 07:33 Dose: 650 mg Documented By: MARTIN Albuterol Sulfate (Albuterol Sulfate 90 Mcg 8 Gm Inhaler) 2 puff INHALE Q4H PRN PRN Reason: wheezing Albuterol Sulfate (Albuterol Sulfate (0.083%) 2.5 Mg/3 Ml Vial.Neb) 2.5 mg INHALE TID PRN PRN Reason: Shortness Of Breath Amlodipine Besylate (Amlodipine Besylate 10 Mg Tablet) 10 mg PO DAILY [facility]; Protocol Last Admin: 08/09/22 10:34 Dose: 10 mg Documented By: HARVEY Comments: just returned from dialysis Aspirin (Aspirin Enteric Coated 81 Mg Tablet.) 81 mg PO DAILY [facility] Last Admin: 08/09/22 10:33 Dose: 81 mg Documented By: HARVEY Comments: just returned from dialysis Bumetanide (Bumetanide 1 Mg Tablet) 2 mg PO DAILY [facility]; Protocol Last Admin: 08/09/22 10:33 Dose: 2 mg Documented By: HARVEY Comments: just returned from dialysis Buprenorphine/Naloxone (Buprenorphine/Naloxone 8/2 Mg Film) 2 film SUBLINGUAL DAILY [facility] Last Admin: 08/09/22 10:34 Dose: 2 film Documented By: HARVEY Comments: just returned from dialysis Carvedilol (Carvedilol 6.25 Mg Tablet) 6.25 mg PO BID [facility]; Protocol Last Admin: 08/09/22 10:33 Dose: 6.25 mg Documented By: HARVEY Comments: just returned from dialysis Clonidine HCl (Clonidine Hcl 0.2 Mg Tablet) 0.2 mg PO BID [facility]; Protocol Last Admin: 08/09/22 10:34 Dose: 0.2 mg Documented By: HARVEY Comments: just returned from dialysis Diltiazem HCl (Diltiazem Hcl Cd 180 Mg Cap.Er.24h) 360 mg PO DAILY [facility]; Protocol Last Admin: 08/09/22 10:32 Dose: 360 mg Documented By: HARVEY Comments: just returned from dialysis Diphenhydramine HCl (Diphenhydramine Hcl 25 Mg Capsule) 25 mg PO DAILY PRN PRN Reason: allergy symptoms Last Admin: 08/08/22 10:59 Dose: 25 mg Documented By: TONIE Docusate Sodium (Docusate Sodium 100 Mg Capsule) 100 mg PO BID [facility] Last Admin: 08/09/22 10:35 Dose: 100 mg Documented By: HARVEY Fluticasone Propionate (Fluticasone Propionate 100 Mcg Blst.W.Dev) 1 puff INHALE RBID [facility] Last Admin: 08/09/22 09:35 Dose: Not Given Documented By: ANALILIARICArben Non-Admin Reason: pt not avail Heparin Sodium (Porcine) (Heparin Sodium,Porcine 5,000 Unit/Ml Vial) 5,000 unit SUBCUT Q8H [facility] Last Admin: 08/09/22 10:35 Dose: 5,000 unit Documented By: HARVEY Hydralazine HCl (Hydralazine Hcl 50 Mg Tablet) 100 mg PO TID [facility]; Protocol Last Admin: 08/09/22 14:18 Dose: 100 mg Documented By: HARVEY Vancomycin HCl 500 mg/ Sodium (Chloride) 110 mls @ 110 mls/hr IV [id number] [facility] Isosorbide Dinitrate (Isosorbide Dinitrate 10 Mg Tablet) 30 mg PO TID [facility]; Protocol Last Admin: 08/09/22 14:18 Dose: 30 mg Documented By: HARVEY Lactulose (Lactulose 20 Gm/30 Ml Solution) 10 gm PO DAILY PRN PRN Reason: constipation Last Admin: 08/08/22 10:59 Dose: 10 gm Documented By: TONIE Melatonin (Melatonin 3 Mg Tablet) 3 mg PO BEDTIME PRN PRN Reason: Insomnia Last Admin: 08/09/22 02:13 Dose: 3 mg Documented By: FARA Nicotine (Nicotine 21 Mg Patch.Td24) 21 mg TRANSDERMA DAILY [facility] Last Admin: 08/09/22 10:35 Dose: 21 mg Documented By: HARVEY Ondansetron HCl (Ondansetron Hcl 4 Mg/2 Ml Vial) 4 mg IVPUSH Q8H PRN PRN Reason: Nausea and Vomiting Last Admin: 08/09/22 10:46 Dose: 4 mg Documented By: HARVEY Pharmacy Consult (Consult Rx Perform Med Rec) 1 each MISCELLANE ONCE PRN PRN Reason: Consult order Polyethylene Glycol (Polyethylene Glycol 3350 17 Gm Powd.Pack) 17 gm PO DAILY [facility] Last Admin: 08/09/22 10:35 Dose: 17 gm Documented By: HARVEY Sodium Chloride (0.9 % Sodium Chloride Flush 3 Ml Syringe) 3 ml IVFLUSH QSHIFT [facility] Last Admin: 08/09/22 10:34 Dose: 3 ml Documented By: HARVEY Labs 08/09/22 05:09 08/08/22 05:04 Labs: Laboratory Results - last 24 hr 08/09/22 08/09/22 05:09 11:51 MCV 98.0 MCH 30.9 MCHC 31.5 RDW 15.3 Plt Count 188 MPV 10.6 Absolute Nucleated RBC 0.000 Nucleated RBC % (auto) 0.0 Random Vancomycin 11.6 L Microbiology Microbiology Results: Microbiology 08/07/22 15:32 Blood Culture - Preliminary Blood - Venous Staphylococcus aureus 08/07/22 15:00 Blood Culture - Preliminary Blood - Venous Staphylococcus aureus 08/08/22 05:04 Blood Culture - Preliminary Blood - Venous No growth after 24 hours. 08/08/22 05:04 Blood Culture - Preliminary Blood - Venous No growth after 24 hours. Assessment and Plan (1) Bacteremia: Status: Acute (2) Tachycardia: Status: Acute (3) Leukocytosis: Status: Acute (4) Fever: Status: Acute (5) End stage chronic kidney disease: Status: Acute Plan 67 yo F with a PMH of ESRD on HD MWF, HTN, chronic opiate dependence on suboxone, DM, HFpEF who presents with multiple complaints. Work up on the ED reveals fluid overload secondary to CHF and ESRD + multilobar pneumonia. She will be admitted for further work up. 1. Staph aureus bacteremia No recurrent Fever, WBC normalized, tachycardia resolved Sirs present on admission but no source of infection was present, patient diagnosed to have bacteremia next morning CT abdomen and chest showed no acute abnormality other than large stool burden, UA 2+ bacteria with no nitrates no leukocyte Estrace less likely UTI no redness , no swelling or tenderness around hemodialysis catheter, follow repeat blood cultures, follow CBC continue IV vancomycin started 08/07, on HD days Spoke with ID will wait for final blood culture report 2. chronic respiratory failure with hypoxia ? ?Oxygenation 94% on room 3. ESRD on HD continue hemodialysis m/w/f as per Nephrology 4. HTN??continue home medications blood pressure improved follow BP closely history of chronic elevated blood pressures 5. Constipation resolved added scheduled MiraLax and stool softeners. 6. Chronic COPD no acute exacerbation, continue home inhalers. 7. Tobacco use disorder continue nicotine patch. Full Code DVT pptx, subcut. heparin Given patient's multiple chronic co-morbidities , with Gram-positive bacteremia will continue IV antibiotics and further workup for source of infection . Time Spent With Patient Time: Total time managing care of this patient today ____ minutes. Quality Stroke Does the patient have a stroke diagnosis?: No VTE Prior VTE?: No VTE Risk Level:: Medical - moderate - high VTE Device Contraindication: Treatment Not Indicated VTE Drug Contraindication: N/A - Med Ordered
--- NOTE | 2022-08-09 14:53 | P.CDIM_ITS ---
PROVIDER RESPONSE TEXT: To clarify, the appropriate diagnosis supported by the clinical indicators: Other (explain): sirs present on admission bacteremia diagnosed next am QUERY TEXT: PHYSICIAN'S DOCUMENTATION REQUEST Date of Query: 08/09/2022 08:13 AM EDT Patient Name: Cruz Muller Admit Date: 08/07/2022 Dear Aracelis Zuleta, A review of the medical record indicates additional documentation may be needed. Please review below and update the documentation accordingly. Documentation on progress note dated 08/08/22 included the diagnosis of sepsis. The patient's infectious clinical indicators include: WBC 17.7 HR 124 T 100.3 Per ID note 08/08/22: Sepsis: She has fever and leukocytosis and now bacteremia. It is possible that it is staph or strep Per MD progress note 08/08/22: gram positive bacteremia Repeat blood culture pending Recognized standard criteria for this condition and other infectious definitions includes: Bacteremia Abnormal laboratory test - does not indicate a clinically ill patient Sepsis Systemic manifestations of infection, with 2 or more SIRS criteria which include: Fever > 100.4?F or hypothermia < 96.8?F Leukocytosis WBC > 12,000 or leukopenia, WBC < 4,000, or > 10% bands Tachycardia- > 90 beats/minute Tachypnea- RR > 20 breaths/minute or PaCO2 < 32mmHg Source: [employer]ck Manual 2013 Documentation should include the known or suspected organism, and the underlying infection, such as U TI or pneumonia Severe Sepsis Sepsis with associated acute organ dysfunction, such as renal or respiratory failure Documentation should indicate the association between the sepsis and the organ dysfunction Septic Shock Severe sepsis with associated with circulatory failure, evidenced by hypotension and hypoperfusion Based on the above information and the recognized standard for sepsis, could you please clarify if th is diagnoses is still accurate and reflective of the patient's condition to ensure quality of the medical record. Sepsis is/was present on admission and is a clinical diagnosis based on After study (the condition) has been ruled out Other (explain) Clinically unable to determine (explain) Thank you, Khushboo Sanchez RN Use of terms such as suspected, likely, concern for, or probable (associated with a specific diagnosi s that is being evaluated, monitored, or treated as if it exists) are acceptable and can be coded in the inpatient se tting, when documented at the time of discharge. Please use your independent medical judgment in providing your response. THIS QUERY IS PART OF THE PERMANENT MEDICAL RECORD
[2022-08-09] MEDS: diphenhydrAMINE HCL 25 MG CAPSULE PO (15:57)
[2022-08-09] MEDS: Famotidine 20 MG TABLET PO (16:40)
[2022-08-09] MEDS: Fluticasone Propionate 100 MCG BLST.W.DEV 1 PUFF INHALE (19:50)
[2022-08-10] VITALS (8 sets, daily range): BP systolic 128–156; BP diastolic 60–72; PULSE 52–92; RESP 16–20; TEMP 36.1–37; O2SAT 94–97
[2022-08-10] MEDS: Heparin Sodium,Porcine 5,000 UNIT/ML VIAL 5000 UNIT SUBCUT ×3 (02:52→18:22)
[2022-08-10] MEDS: Fluticasone Propionate 100 MCG BLST.W.DEV 1 PUFF INHALE ×2 (08:06→19:37)
[2022-08-10] MEDS: cloNIDine HCL 0.2 MG TABLET PO ×2 (09:14→20:01)
[2022-08-10] MEDS: hydrALAZINE HCl 50 MG TABLET 100 MG PO ×3 (09:14→20:01)
[2022-08-10] MEDS: Aspirin Enteric Coated 81 MG TABLET.DR PO (09:14)
[2022-08-10] MEDS: dilTIAZem HCL CD 180 MG CAP.ER.24H 360 MG PO (09:15)
[2022-08-10] MEDS: amLODIPine Besylate 10 MG TABLET PO (09:15)
[2022-08-10] MEDS: Docusate Sodium 100 MG CAPSULE PO ×2 (09:15→20:01)
[2022-08-10] MEDS: Bumetanide 1 MG TABLET 2 MG PO (09:15)
[2022-08-10] MEDS: carvediloL 6.25 MG TABLET PO ×2 (09:15→20:01)
[2022-08-10] MEDS: Buprenorphine/Naloxone 8/2 mg FILM 2 FILM SUBLINGUAL (09:16)
[2022-08-10] MEDS: 0.9 % Sodium Chloride Flush 3 ML SYRINGE IVFLUSH ×3 (09:16→20:02)
[2022-08-10] MEDS: Nicotine 21 MG PATCH.TD24 TRANSDERMA (09:16)
[2022-08-10] MEDS: Isosorbide Dinitrate 10 MG TABLET 30 MG PO ×3 (10:46→20:01)
--- NOTE | 2022-08-10 10:50 | HO.PM.IMPN ---
Subjective Subjective Date of Service: 08/10/22 Interval History: This history was taken in Romansh from the patient. no fever/chills HD tomorrow BCx grew MSSA Review of Systems Review of Systems: Yes all other systems are reviewed and are negative Physical Exam Vital Signs: Vital Signs: Last Vital Signs Temp 98.6 F 08/10/22 07:28 Pulse 92 08/10/22 10:42 Resp 18 08/10/22 08:08 BP 153/72 H 08/10/22 07:28 Pulse Ox 95 08/10/22 07:28 O2 Del Method Room Air 08/10/22 07:28 BMI result Body Mass Index 22.4 Gen: in no acute distress HEENT: sclera anicteric, moist mucus membranes Neck: supple, RIJ HD catheter without redness or erythema Lungs: clear to auscultation bilaterally Heart: regular rate and rhythm, no murmurs Abd: soft, non-tender, non-distended Ext: no edema Skin: warm/well-perfused Neuro: alert and oriented x3, no focal findings Psych: appropriate affect Objective Data Active Medications Acetaminophen (Acetaminophen 325 Mg Tablet) 650 mg PO Q6H PRN PRN Reason: Pain, Mild (Pain Scale 1-3) Last Admin: 08/08/22 07:33 Dose: 650 mg Documented By: MARTIN Albuterol Sulfate (Albuterol Sulfate 90 Mcg 8 Gm Inhaler) 2 puff INHALE Q4H PRN PRN Reason: wheezing Albuterol Sulfate (Albuterol Sulfate (0.083%) 2.5 Mg/3 Ml Vial.Neb) 2.5 mg INHALE TID PRN PRN Reason: Shortness Of Breath Amlodipine Besylate (Amlodipine Besylate 10 Mg Tablet) 10 mg PO DAILY [facility]; Protocol Last Admin: 08/10/22 09:15 Dose: 10 mg Documented By: HARVEY Aspirin (Aspirin Enteric Coated 81 Mg Tablet.) 81 mg PO DAILY [facility] Last Admin: 08/10/22 09:14 Dose: 81 mg Documented By: HARVEY Bumetanide (Bumetanide 1 Mg Tablet) 2 mg PO DAILY [facility]; Protocol Last Admin: 08/10/22 09:15 Dose: 2 mg Documented By: HARVEY Buprenorphine/Naloxone (Buprenorphine/Naloxone 8/2 Mg Film) 2 film SUBLINGUAL DAILY [facility] Last Admin: 08/10/22 09:16 Dose: 2 film Documented By: HARVEY Carvedilol (Carvedilol 6.25 Mg Tablet) 6.25 mg PO BID [facility]; Protocol Last Admin: 08/10/22 09:15 Dose: 6.25 mg Documented By: HARVEY Clonidine HCl (Clonidine Hcl 0.2 Mg Tablet) 0.2 mg PO BID [facility]; Protocol Last Admin: 08/10/22 09:14 Dose: 0.2 mg Documented By: HARVEY Diltiazem HCl (Diltiazem Hcl Cd 180 Mg Cap.Er.24h) 360 mg PO DAILY [facility]; Protocol Last Admin: 08/10/22 09:15 Dose: 360 mg Documented By: HARVEY Diphenhydramine HCl (Diphenhydramine Hcl 25 Mg Capsule) 25 mg PO DAILY PRN PRN Reason: allergy symptoms Last Admin: 08/09/22 15:57 Dose: 25 mg Documented By: HILARIO Docusate Sodium (Docusate Sodium 100 Mg Capsule) 100 mg PO BID [facility] Last Admin: 08/10/22 09:15 Dose: 100 mg Documented By: HARVEY Fluticasone Propionate (Fluticasone Propionate 100 Mcg Blst.W.Dev) 1 puff INHALE RBID [facility] Last Admin: 08/10/22 08:06 Dose: 1 puff Documented By: EDMUNDO Heparin Sodium (Porcine) (Heparin Sodium,Porcine 5,000 Unit/Ml Vial) 5,000 unit SUBCUT Q8H [facility] Last Admin: 08/10/22 10:46 Dose: 5,000 unit Documented By: HARVEY Hydralazine HCl (Hydralazine Hcl 50 Mg Tablet) 100 mg PO TID [facility]; Protocol Last Admin: 08/10/22 09:14 Dose: 100 mg Documented By: HARVEY Vancomycin HCl 500 mg/ Sodium (Chloride) 110 mls @ 110 mls/hr IV [id number] [facility] Isosorbide Dinitrate (Isosorbide Dinitrate 10 Mg Tablet) 30 mg PO TID [facility]; Protocol Last Admin: 08/10/22 10:46 Dose: 30 mg Documented By: HARVEY Comments: initially unavailable Lactulose (Lactulose 20 Gm/30 Ml Solution) 10 gm PO DAILY PRN PRN Reason: constipation Last Admin: 08/08/22 10:59 Dose: 10 gm Documented By: TONIE Melatonin (Melatonin 3 Mg Tablet) 3 mg PO BEDTIME PRN PRN Reason: Insomnia Last Admin: 08/09/22 20:42 Dose: 3 mg Documented By: VINCENT Nicotine (Nicotine 21 Mg Patch.Td24) 21 mg TRANSDERMA DAILY [facility] Last Admin: 08/10/22 09:16 Dose: 21 mg Documented By: HARVEY Ondansetron HCl (Ondansetron Hcl 4 Mg/2 Ml Vial) 4 mg IVPUSH Q8H PRN PRN Reason: Nausea and Vomiting Last Admin: 08/09/22 20:42 Dose: 4 mg Documented By: VINCENT Pharmacy Consult (Consult Rx Perform Med Rec) 1 each MISCELLANE ONCE PRN PRN Reason: Consult order Polyethylene Glycol (Polyethylene Glycol 3350 17 Gm Powd.Pack) 17 gm PO DAILY [facility] Last Admin: 08/10/22 09:16 Dose: Not Given Documented By: HARVEY Non-Admin Reason: pt refused/2x bms Sodium Chloride (0.9 % Sodium Chloride Flush 3 Ml Syringe) 3 ml IVFLUSH QSHIFT [facility] Last Admin: 08/10/22 09:16 Dose: 3 ml Documented By: HARVEY Labs 08/09/22 05:09 08/08/22 05:04 Labs: Laboratory Results - last 24 hr 08/09/22 11:51 Random Vancomycin 11.6 L Microbiology Microbiology Results: Microbiology 08/07/22 15:32 Blood Culture - Final Blood - Venous Staphylococcus aureus 08/07/22 15:00 Blood Culture - Final Blood - Venous Staphylococcus aureus 08/08/22 05:04 Blood Culture - Preliminary Blood - Venous No growth after 48 hours. 08/08/22 05:04 Blood Culture - Preliminary Blood - Venous No growth after 48 hours. Assessment and Plan (1) Bacteremia: Status: Acute (2) Tachycardia: Status: Acute (3) Leukocytosis: Status: Acute (4) Fever: Status: Acute (5) End stage chronic kidney disease: Status: Acute Plan d#4 67yo F with ESRD on HD MWF, HTN, chronic opiate dependence on Suboxone, DM, HFpEF. Admitted for fluid overload secondary to CHF and ESRD + multilobar pneumonia, found to have MSSA bacteremia # MSSA bacteremia with HD catheter in place - BCx from 08/08 cleared, thus on d# of IV ABX- vanco thus far, will change to cefazolin since MSSA - TTE pending - plan to d/c HD catheter after HD tomorrow and replace 08/14 # chronic hypoxic resp failure # COPD without acute exac - on home O2 1L via NC - prn albuterol # ESRD - HD MWF # HTN - continue clonidine, carvedilol, amlodipine, bumetanide, diltiazem, isosorbide dinitrate, hydralazine # constipation - resolved, on maintenance stool softeners # OUD - Suboxone # tobacco abuse - NRT # VTE ppx: UFH # dispo: plan eventual home with VNA In my clinical judgment, the patient requires continued inpatient hospitalization for the following reasons: catheter replacement Time Spent With Patient Time: Total time managing care of this patient today 50____ minutes. Quality Stroke Does the patient have a stroke diagnosis?: No VTE Prior VTE?: No VTE Risk Level:: Medical - moderate - high VTE Device Contraindication: Treatment Not Indicated VTE Drug Contraindication: N/A - Med Ordered
--- NOTE | 2022-08-10 11:00 | MHC.CM.PN ---
Per MD rounds dc anticipated next week. Patient will have HD today. Her HD line will be removed r/t bacteremia. A PT eval was performed at the request of [facility]. The patient does not qualify for PT. She ambulates with a steady gait. An order to evaluate pts capacity has also been entered by . An update was called to [facility] transitions Coordinator, Ria. The patient will recive IV ABX @ HD. DP home resume HD and Home services. Patients [employer] will provide transport home.
--- NOTE | 2022-08-10 13:40 | PM.PNNEP ---
Subjective Subjective Date of Service: 08/10/22 Interval history: no fever/chills HD tomorrow BCx grew MSSA Physical Exam Vital Signs: Vital Signs: Last Vital Signs Temp 98.6 F 08/10/22 07:28 Pulse 92 08/10/22 10:42 Resp 18 08/10/22 08:08 BP 153/72 H 08/10/22 07:28 Pulse Ox 95 08/10/22 07:28 O2 Del Method Room Air 08/10/22 07:28 BMI result Body Mass Index 22.4 Const: Other: Gen:? Awake alert x3, no acute distress HEENT: sclera anicteric, moist mucus membranes Neck: supple Right anterior chest wall at site of hemodialysis catheter with no surrounding redness, swelling or tenderness. Lungs: Clear? To auscultation bilaterally no rhonchi few expiratory wheeze Heart: regular rate and rhythm, no murmurs Abd: soft, distended, nontender bowel sounds audible Back no CVA tenderness Ext: no edema Skin: warm/well-perfused Neuro: alert and oriented x3, no focal findings Psych: appropriate affect Objective Data Labs 08/09/22 05:09 08/08/22 05:04 Microbiology Microbiology Results: Microbiology 08/07/22 15:32 Blood - Venous Blood Culture - Final Staphylococcus aureus 08/07/22 15:00 Blood - Venous Blood Culture - Final Staphylococcus aureus 08/08/22 05:04 Blood - Venous Blood Culture - Preliminary No growth after 48 hours. 08/08/22 05:04 Blood - Venous Blood Culture - Preliminary No growth after 48 hours. Procedures Date of Service Date of Service: 08/10/22 Assessment & Plan Assessment and plan (1) End stage chronic kidney disease: Status: Acute Plan 67 YR old woman with ESRD and Fever Work up in progress for sepsis Gram stain positive for GPC Culture positive Agree with antibiotic coverage HD on \ Will proceed with HD on Friday 08/11 and THEN remove the catheter Catheter holiday with anitbiotics Repeat Blood c/s next week Time Spent With Patient Time: Total time managing care of this patient today ____ minutes. Progress Note: Quality Stroke Does the patient have a stroke diagnosis?: No
--- NOTE | 2022-08-10 15:47 | PM.PSYCN ---
History of Present Illness Date of Service: t Chief Complaint: lower back pain/fever Reason for Consult: Assessment of capacity to take informed decisions Requesting physician: Florence Mesa Discussed with referring provider: Yes Sources of Information: patient interviewed and chart reviewed HPI Narrative: The patient is a 67-year-old [place] female, single, with poor social support, living by herself with ancillary services such as [employer], with a prior history of opiate use disorder, several other medical comorbidities with a port catheter, admitted from the emergency room for sepsis. On admission, the patient was delirious with altered mental status in clear correlation with the Infectious Disease. The current consult was requested by [facility]. On interview, the patient was pleasant and cooperative, she reported that she is doing much better with antibiotics, she is fully aware that she had an infection and most likely her port catheter needs to be changed. She stated that she had been having symptoms for the last days with malaise, fatigue, pain but she admitted that she was confused and she cannot remember very well how come she in the in the hospital. She is aware that her [employer] call 911. At the moment of the interview, the patient was fully aware of her diagnosis, she was aware of the consequence of not receiving antibiotic treatment and she wanted to have treatment at this moment. On a close assessment, the patient was oriented on place situation and person but she was disoriented on time. Also her short-term memory was slightly impaired most likely due to the recent episode of delirium that is resolving. Past Psychiatric History: not reviewed Medical Evaluation Reviewed: Yes [facility] Medical History (Updated 08/10/22 @ 15:51 by Sathya Blair) Acute exacerbation of chronic obstructive pulmonary disease (COPD) Acute GI bleeding Anasarca Anemia Anemia in chronic kidney disease Ascites Asthma with COPD with exacerbation Constipation COVID COVID-19 virus infection Diabetes mellitus End stage renal disease on dialysis ESRD (end stage renal disease) ESRD (end stage renal disease) Essential hypertension Heart failure with preserved ejection fraction Hypertension Hypertrophic cardiomyopathy Ischemic colitis Opioid withdrawal Pulmonary congestion Sepsis Surgical History No pertinent past surgical history Diagnostics Vital Signs (24Hr): Vital Signs - 24 hr 08/09/22 15:59 08/09/22 19:52 08/09/22 20:00 Temperature 99.3 F 98 F Pulse Rate 94 94 58 Respiratory Rate 17 17 16 Blood Pressure 94/50 L 116/61 Pulse Oximetry 92 96 Oxygen Delivery Method Room Air Room Air 08/09/22 20:33 08/10/22 03:26 08/10/22 07:28 Temperature 97.9 F 98.6 F Pulse Rate 60 52 61 Respiratory Rate 17 17 Blood Pressure 156/69 H 153/72 H Pulse Oximetry 97 95 Oxygen Delivery Method Room Air Room Air 08/10/22 08:08 08/10/22 10:42 08/10/22 15:23 Temperature 97.7 F Pulse Rate 92 92 58 Respiratory Rate 18 16 Blood Pressure 144/67 H Pulse Oximetry 96 Oxygen Delivery Method Room Air BMI result Body Mass Index 22.4 Labs 08/09/22 05:09 08/08/22 05:04 Labs: Laboratory Results - last 48 hr 08/09/22 08/09/22 05:09 11:51 WBC 8.4 RBC 3.01 L Hgb 9.3 L Hct 29.5 L MCV 98.0 MCH 30.9 MCHC 31.5 RDW 15.3 Plt Count 188 MPV 10.6 Absolute Nucleated RBC 0.000 Nucleated RBC % (auto) 0.0 Random Vancomycin 11.6 L Imaging Radiology Impressions: ITS Impressions Chest X-Ray 08/07/22 15:06 IMPRESSION: No acute cardiopulmonary process. Abdomen/Pelvis CT 08/07/22 15:59 IMPRESSION: 1. A cause for the patient's kidney pain has not been found. There is no nephrolithiasis at this time. 2. 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 Fleischner guidelines were followed. Mental Status Exam Mental Status Exam Patient Appearance: Appropriate (On hospital gowns) and Unkempt Patient Orientation: Person, Place and Situation Level of Consciousness: Awake and Appropriate Patient Behavior: Talkative Mood Description: Withdrawn Affect Description: Constricted Patient Cognition Impaired: Yes Ability to Follow Directions: Fair Speech Pattern: Clear (In American) Hallucinations: None Delusions: Not Present Thought Process: Distracted and Slowed Thinking Thought Content: positive for Libby and positive for Poverty of Content Judgement: Fair Medications Medications Current Medications Acetaminophen (Acetaminophen 325 Mg Tablet) 650 mg PO Q6H PRN PRN Reason: Pain, Mild (Pain Scale 1-3) Last Admin: 08/08/22 07:33 Dose: 650 mg Albuterol Sulfate (Albuterol Sulfate 90 Mcg 8 Gm Inhaler) 2 puff INHALE Q4H PRN PRN Reason: wheezing Albuterol Sulfate (Albuterol Sulfate (0.083%) 2.5 Mg/3 Ml Vial.Neb) 2.5 mg INHALE TID PRN PRN Reason: Shortness Of Breath Amlodipine Besylate (Amlodipine Besylate 10 Mg Tablet) 10 mg PO DAILY [facility]; Protocol Last Admin: 08/10/22 09:15 Dose: 10 mg Aspirin (Aspirin Enteric Coated 81 Mg Tablet.Dr) 81 mg PO DAILY [facility] Last Admin: 08/10/22 09:14 Dose: 81 mg Bumetanide (Bumetanide 1 Mg Tablet) 2 mg PO DAILY [facility]; Protocol Last Admin: 08/10/22 09:15 Dose: 2 mg Buprenorphine/Naloxone (Buprenorphine/Naloxone 8/2 Mg Film) 2 film SUBLINGUAL DAILY [facility] Last Admin: 08/10/22 09:16 Dose: 2 film Carvedilol (Carvedilol 6.25 Mg Tablet) 6.25 mg PO BID [facility]; Protocol Last Admin: 08/10/22 09:15 Dose: 6.25 mg Clonidine HCl (Clonidine Hcl 0.2 Mg Tablet) 0.2 mg PO BID [facility]; Protocol Last Admin: 08/10/22 09:14 Dose: 0.2 mg Diltiazem HCl (Diltiazem Hcl Cd 180 Mg Cap.Er.24h) 360 mg PO DAILY [facility]; Protocol Last Admin: 08/10/22 09:15 Dose: 360 mg Diphenhydramine HCl (Diphenhydramine Hcl 25 Mg Capsule) 25 mg PO DAILY PRN PRN Reason: allergy symptoms Last Admin: 08/09/22 15:57 Dose: 25 mg Docusate Sodium (Docusate Sodium 100 Mg Capsule) 100 mg PO BID [facility] Last Admin: 08/10/22 09:15 Dose: 100 mg Fluticasone Propionate (Fluticasone Propionate 100 Mcg Blst.W.Dev) 1 puff INHALE RBID [facility] Last Admin: 08/10/22 08:06 Dose: 1 puff Heparin Sodium (Porcine) (Heparin Sodium,Porcine 5,000 Unit/Ml Vial) 5,000 unit SUBCUT Q8H [facility] Last Admin: 08/10/22 10:46 Dose: 5,000 unit Hydralazine HCl (Hydralazine Hcl 50 Mg Tablet) 100 mg PO TID [facility]; Protocol Last Admin: 08/10/22 09:14 Dose: 100 mg Cefazolin Sodium 2 gm/ Sodium (Chloride) 50 mls @ 100 mls/hr IV [id number] [facility] Isosorbide Dinitrate (Isosorbide Dinitrate 10 Mg Tablet) 30 mg PO TID [facility]; Protocol Last Admin: 08/10/22 10:46 Dose: 30 mg Lactulose (Lactulose 20 Gm/30 Ml Solution) 10 gm PO DAILY PRN PRN Reason: constipation Last Admin: 08/08/22 10:59 Dose: 10 gm Melatonin (Melatonin 3 Mg Tablet) 3 mg PO BEDTIME PRN PRN Reason: Insomnia Last Admin: 08/09/22 20:42 Dose: 3 mg Nicotine (Nicotine 21 Mg Patch.Td24) 21 mg TRANSDERMA DAILY [facility] Last Admin: 08/10/22 09:16 Dose: 21 mg Ondansetron HCl (Ondansetron Hcl 4 Mg/2 Ml Vial) 4 mg IVPUSH Q8H PRN PRN Reason: Nausea and Vomiting Last Admin: 08/09/22 20:42 Dose: 4 mg Pharmacy Consult (Consult Rx Perform Med Rec) 1 each MISCELLANE ONCE PRN PRN Reason: Consult order Polyethylene Glycol (Polyethylene Glycol 3350 17 Gm Powd.Pack) 17 gm PO DAILY [facility] Last Admin: 08/10/22 09:16 Dose: Not Given Sodium Chloride (0.9 % Sodium Chloride Flush 3 Ml Syringe) 3 ml IVFLUSH QSHIFT [facility] Last Admin: 08/10/22 09:16 Dose: 3 ml Allergies Allergies Allergy/AdvReac Type Severity Reaction Status Date / Time No Known Allergies Allergy Mild NOT Verified 04/14/22 01:40 APPLICABLE Assessment & Plan Assessment & Plan (1) Sepsis: Status: Acute Code(s): A41.9 - Sepsis, unspecified organism (2) Bacteremia: Status: Acute Code(s): R78.81 - Bacteremia (3) Congestive heart failure with left ventricular dysfunction: Status: Acute Code(s): I50.9 - Heart failure, unspecified (4) Dialysis patient, noncompliant: Status: Acute Code(s): Z91.15 - Patient's noncompliance with renal dialysis (5) Delirium: Status: Acute Code(s): R41.0 - Disorientation, unspecified Plan The patient is an elderly [place] female with a prior history of opiate use disorder, several medical comorbidities such as chronic renal failure, noncompliance of dialysis, CHF and now recently admitted for sepsis due to an infected port catheter. The patient recently was delirious, with altered mental status in clear correlation with her septic condition. At the moment of the interview, even though the patient had mild cognitive impairment, she had capacity to take informed decisions. The patient wants treatment at this moment. Plan 1. The patient has capacity to participate on treatment options, she is fully aware that she has an infection and she wants treatment. 2. The patient has mild cognitive impairment, it is unclear if it is due to the delirium that is clearing or she has a neuro cognitive impairment at this moment. Further assessment would need to be done when she is more medically stable. 3. Reassessment as demand. Total time managing care of this patient today _45___ minutes. Patient educated on: diagnosis and therapeutic strategies Informed Consent: further education needed
[2022-08-10] MEDS: diphenhydrAMINE HCL 25 MG CAPSULE PO (15:55)
[2022-08-10] MEDS: ondansetron HCL 4 MG/2 ML VIAL IVPUSH ×2 (15:56→23:23)
[2022-08-10] MEDS: Melatonin 3 MG TABLET PO (23:23)
[2022-08-11] VITALS (7 sets, daily range): BP systolic 127–149; BP diastolic 58–72; PULSE 52–64; RESP 16–18; TEMP 36.6–37.3; O2SAT 94–98
[2022-08-11] MEDS: Heparin Sodium,Porcine 5,000 UNIT/ML VIAL 5000 UNIT SUBCUT ×3 (02:43→18:32)
[2022-08-11] MEDS: Fluticasone Propionate 100 MCG BLST.W.DEV 1 PUFF INHALE ×2 (07:46→20:46)
[2022-08-11] MEDS: 0.9 % Sodium Chloride Flush 3 ML SYRINGE IVFLUSH ×3 (07:51→19:32)
[2022-08-11] MEDS: Docusate Sodium 100 MG CAPSULE PO ×2 (07:53→19:32)
[2022-08-11] MEDS: hydrALAZINE HCl 50 MG TABLET 100 MG PO ×3 (07:53→19:32)
[2022-08-11] MEDS: cloNIDine HCL 0.2 MG TABLET PO ×2 (07:54→19:32)
[2022-08-11] MEDS: dilTIAZem HCL CD 180 MG CAP.ER.24H 360 MG PO (07:54)
[2022-08-11] MEDS: Isosorbide Dinitrate 10 MG TABLET 30 MG PO ×3 (07:55→19:31)
[2022-08-11] MEDS: carvediloL 6.25 MG TABLET PO ×2 (07:56→19:31)
[2022-08-11] MEDS: amLODIPine Besylate 10 MG TABLET PO (07:56)
[2022-08-11] MEDS: Aspirin Enteric Coated 81 MG TABLET.DR PO (07:57)
[2022-08-11] MEDS: Bumetanide 1 MG TABLET 2 MG PO (07:57)
[2022-08-11] MEDS: Nicotine 21 MG PATCH.TD24 TRANSDERMA (07:59)
[2022-08-11] MEDS: Buprenorphine/Naloxone 8/2 mg FILM 2 FILM SUBLINGUAL (07:59)
[2022-08-11] MEDS: polyethylene glycoL 3350 17 GM POWD.PACK PO (08:00)
[2022-08-11] MEDS: Acetaminophen 325 MG TABLET 650 MG PO ×2 (09:12→18:31)
--- NOTE | 2022-08-11 09:50 | P.PNIM_ITS ---
Subjective Subjective Date of Service: 08/11/22 Interval History: This history was taken in Sinhala from the patient. no fever/chills poor appetite HD today BCx from 08/08 now positive in 1 set Review of Systems Review of Systems: Yes all other systems are reviewed and are negative Physical Exam Vital Signs: Vital Signs: Last Vital Signs Temp 99.1 F 08/11/22 07:22 Pulse 55 08/11/22 07:47 Resp 16 08/11/22 07:47 BP 149/64 H 08/11/22 07:22 Pulse Ox 96 08/11/22 07:22 O2 Del Method Room Air 08/11/22 07:22 BMI result Body Mass Index 22.4 Gen: in no acute distress HEENT: sclera anicteric, moist mucus membranes Neck: supple, RIJ HD catheter without redness or erythema Lungs: clear to auscultation bilaterally Heart: regular rate and rhythm, no murmurs Abd: soft, non-tender, non-distended Ext: no edema Skin: warm/well-perfused Neuro: alert and oriented x3, no focal findings Psych: appropriate affect Objective Data Active Medications Acetaminophen (Acetaminophen 325 Mg Tablet) 650 mg PO Q6H PRN PRN Reason: Pain, Mild (Pain Scale 1-3) Last Admin: 08/11/22 09:12 Dose: 650 mg Documented By: JULIA Albuterol Sulfate (Albuterol Sulfate 90 Mcg 8 Gm Inhaler) 2 puff INHALE Q4H PRN PRN Reason: wheezing Albuterol Sulfate (Albuterol Sulfate (0.083%) 2.5 Mg/3 Ml Vial.Neb) 2.5 mg INHALE TID PRN PRN Reason: Shortness Of Breath Amlodipine Besylate (Amlodipine Besylate 10 Mg Tablet) 10 mg PO DAILY [facility]; Protocol Last Admin: 08/11/22 07:56 Dose: 10 mg Documented By: JULIA Aspirin (Aspirin Enteric Coated 81 Mg Tablet.) 81 mg PO DAILY [facility] Last Admin: 08/11/22 07:57 Dose: 81 mg Documented By: JULIA Bumetanide (Bumetanide 1 Mg Tablet) 2 mg PO DAILY [facility]; Protocol Last Admin: 08/11/22 07:57 Dose: 2 mg Documented By: JULIA Buprenorphine/Naloxone (Buprenorphine/Naloxone 8/2 Mg Film) 2 film SUBLINGUAL DAILY [facility] Last Admin: 08/11/22 07:59 Dose: 2 film Documented By: JULIA Carvedilol (Carvedilol 6.25 Mg Tablet) 6.25 mg PO BID [facility]; Protocol Last Admin: 08/11/22 07:56 Dose: 6.25 mg Documented By: JULIA Clonidine HCl (Clonidine Hcl 0.2 Mg Tablet) 0.2 mg PO BID [facility]; Protocol Last Admin: 08/11/22 07:54 Dose: 0.2 mg Documented By: JULIA Diltiazem HCl (Diltiazem Hcl Cd 180 Mg Cap.Er.24h) 360 mg PO DAILY [facility]; Protocol Last Admin: 08/11/22 07:54 Dose: 360 mg Documented By: JULIA Diphenhydramine HCl (Diphenhydramine Hcl 25 Mg Capsule) 25 mg PO DAILY PRN PRN Reason: allergy symptoms Last Admin: 08/10/22 15:55 Dose: 25 mg Documented By: HARVEY Docusate Sodium (Docusate Sodium 100 Mg Capsule) 100 mg PO BID [facility] Last Admin: 08/11/22 07:53 Dose: 100 mg Documented By: JULIA Fluticasone Propionate (Fluticasone Propionate 100 Mcg Blst.W.Dev) 1 puff INHALE RBID [facility] Last Admin: 08/11/22 07:46 Dose: 1 puff Documented By: JEANETTE Heparin Sodium (Porcine) (Heparin Sodium,Porcine 5,000 Unit/Ml Vial) 5,000 unit SUBCUT Q8H [facility] Last Admin: 08/11/22 02:43 Dose: 5,000 unit Documented By: VINCENT Hydralazine HCl (Hydralazine Hcl 50 Mg Tablet) 100 mg PO TID [facility]; Protocol Last Admin: 08/11/22 07:53 Dose: 100 mg Documented By: JULIA Cefazolin Sodium 2 gm/ Sodium (Chloride) 50 mls @ 100 mls/hr IV [id number]@[id number] [facility] Isosorbide Dinitrate (Isosorbide Dinitrate 10 Mg Tablet) 30 mg PO TID [facility]; Protocol Last Admin: 08/11/22 07:55 Dose: 30 mg Documented By: JULIA Lactulose (Lactulose 20 Gm/30 Ml Solution) 10 gm PO DAILY PRN PRN Reason: constipation Last Admin: 08/08/22 10:59 Dose: 10 gm Documented By: TONIE Melatonin (Melatonin 3 Mg Tablet) 3 mg PO BEDTIME PRN PRN Reason: Insomnia Last Admin: 08/10/22 23:23 Dose: 3 mg Documented By: VINCENT Nicotine (Nicotine 21 Mg Patch.Td24) 21 mg TRANSDERMA DAILY [facility] Last Admin: 08/11/22 07:59 Dose: 21 mg Documented By: JULIA Ondansetron HCl (Ondansetron Hcl 4 Mg/2 Ml Vial) 4 mg IVPUSH Q8H PRN PRN Reason: Nausea and Vomiting Last Admin: 08/10/22 23:23 Dose: 4 mg Documented By: VINCENT Pharmacy Consult (Consult Rx Perform Med Rec) 1 each MISCELLANE ONCE PRN PRN Reason: Consult order Polyethylene Glycol (Polyethylene Glycol 3350 17 Gm Powd.Pack) 17 gm PO DAILY [facility] Last Admin: 08/11/22 08:00 Dose: 17 gm Documented By: JULIA Sodium Chloride (0.9 % Sodium Chloride Flush 3 Ml Syringe) 3 ml IVFLUSH QSHIFT [facility] Last Admin: 08/11/22 07:51 Dose: 3 ml Documented By: JULIA Labs 08/09/22 05:09 08/08/22 05:04 Microbiology Microbiology Results: Microbiology 08/08/22 05:04 Blood Culture - Preliminary Blood - Venous Prelim: GPC Gram Stain only 08/07/22 15:32 Blood Culture - Final Blood - Venous Staphylococcus aureus 08/07/22 15:00 Blood Culture - Final Blood - Venous Staphylococcus aureus 08/08/22 05:04 Blood Culture - Preliminary Blood - Venous No growth after 48 hours. Assessment and Plan (1) Bacteremia: Status: Acute (2) Tachycardia: Status: Acute (3) Leukocytosis: Status: Acute (4) Fever: Status: Acute (5) End stage chronic kidney disease: Status: Acute Plan d#5 67yo F with ESRD on HD MWF, HTN, chronic opiate dependence on Suboxone, DM, HFpEF. Admitted for fluid overload secondary to CHF and ESRD + multilobar pneumonia, found to have MSSA bacteremia # MSSA bacteremia with HD catheter in place - BCx from 08/08 positive at 76 hr. redraw BCx for surveillance 08/10. changed from vanco to cefazolin yesterday. will need 42d once BCx documented clear - TTE pending - plan to d/c HD catheter after HD today and replace next week once BCx cleared # chronic hypoxic resp failure # COPD without acute exac - on home O2 1L via NC - prn albuterol # ESRD - HD MWF # HTN - continue clonidine, carvedilol, amlodipine, bumetanide, diltiazem, isosorbide dinitrate, hydralazine # constipation - resolved, on maintenance stool softeners # OUD - Suboxone # tobacco abuse - NRT # VTE ppx: UFH # dispo: plan eventual home with VNA In my clinical judgment, the patient requires continued inpatient hospitalization for the following reasons: catheter replacement, persistent bacteraemia Time Spent With Patient Time: Total time managing care of this patient today __35__ minutes. Quality Stroke Does the patient have a stroke diagnosis?: No VTE Prior VTE?: No VTE Risk Level:: Medical - moderate - high VTE Device Contraindication: Treatment Not Indicated VTE Drug Contraindication: N/A - Med Ordered
--- NOTE | 2022-08-11 10:19 | MHC.CM.PN ---
PER MD ROUNDS, PT EXPECTED TO REMAIN INPT UNTIL AT LEAST SUNDAY SHE WILL HAVE A NEW LINE PLACED AND PLAN WILL BE FOR ANY IV ABX NEEDED AT DC TO BE ADMINISTERED DURING PTS OP HD
--- NOTE | 2022-08-11 10:56 | PM.PNNEP ---
Subjective Subjective Date of Service: 08/11/22 Interval history: seen and examined on dialysis no complaints Physical Exam Vital Signs: Vital Signs: Last Vital Signs Temp 99.1 F 08/11/22 07:22 Pulse 55 08/11/22 07:47 Resp 16 08/11/22 07:47 BP 149/64 H 08/11/22 07:22 Pulse Ox 96 08/11/22 07:22 O2 Del Method Room Air 08/11/22 07:22 BMI result Body Mass Index 22.4 Const: General: no acute distress HEENT: Head: Yes normocephalic and Yes atraumatic Neck: Neck: Yes supple Resp: Auscultation: diminished lung sounds Cardio: Heart sounds: S1 normal heart sound present and S2 normal heart sound present GI: Palpation (GI): Soft to palpation and nontender Extrem: General: No edema Objective Data Labs 08/09/22 05:09 08/08/22 05:04 Microbiology Microbiology Results: Microbiology 08/08/22 05:04 Blood - Venous Blood Culture - Preliminary Prelim: GPC Gram Stain only 08/07/22 15:32 Blood - Venous Blood Culture - Final Staphylococcus aureus 08/07/22 15:00 Blood - Venous Blood Culture - Final Staphylococcus aureus 08/08/22 05:04 Blood - Venous Blood Culture - Preliminary No growth after 48 hours. Procedures Date of Service Date of Service: 08/11/22 Assessment & Plan Assessment and plan (1) End stage chronic kidney disease: Status: Acute (2) Bacteremia: Status: Acute Plan usually had HD t-t-s GPC bacteremia c/w line infection REC HD today UF as tolerated discontinue dialysis tunnelled catheter after dialysis follow blood culture line holiday renal diet phosphate binders CRUZITO per protocol ABx Time Spent With Patient Time: Total time managing care of this patient today ____ minutes. Progress Note: Quality Stroke Does the patient have a stroke diagnosis?: No
[2022-08-11] MEDS: ondansetron HCL 4 MG/2 ML VIAL IVPUSH (14:08)
[2022-08-11] MEDS: Lidocaine HCl 1 % MPF 30 ML VIAL 10 ML SUBCUT (14:54)
[2022-08-11] MEDS: diphenhydrAMINE HCL 25 MG CAPSULE PO (14:56)
[2022-08-11] MEDS: Lidocaine 4 % Patch ADH..PATCH 1 PATCH TRANSDERMA (15:31)
[2022-08-11] MEDS: oxyCODONE HCl Immed Release 5 MG TABLET PO (15:34)
--- NOTE | 2022-08-11 16:10 | PM.IDPN ---
Subjective Subjective Date of Service: 08/11/22 Critical Care Time (minutes): 15 Comment: still with gram positive cocci blood Objective Data Labs 08/09/22 05:09 08/08/22 05:04 Microbiology Microbiology Results: Microbiology 08/08/22 05:04 Blood - Venous Blood Culture - Preliminary Prelim: GPC Gram Stain only 08/07/22 15:32 Blood - Venous Blood Culture - Final Staphylococcus aureus 08/07/22 15:00 Blood - Venous Blood Culture - Final Staphylococcus aureus 08/08/22 05:04 Blood - Venous Blood Culture - Preliminary No growth after 48 hours. Physical Exam Vital Signs: Vital Signs: Last Vital Signs Temp 98 F 08/11/22 14:59 Pulse 54 08/11/22 14:59 Resp 16 08/11/22 14:59 BP 127/60 08/11/22 14:59 Pulse Ox 96 08/11/22 14:59 O2 Del Method Room Air 08/11/22 14:59 BMI result Body Mass Index 22.4 Const: General: cooperative Resp: Effort & Inspection: normal respiratory effort Cardio: Rate: regular rate Rhythm: regular rhythm GI: Inspection: Yes normal to inspection Extrem: General: Yes normal to inspection Assessment and Plan Assessment and plan (1) Sepsis: Problem details: MSSA bacteremia He has persistence Status: Acute (2) Fever: Status: Acute Plan Continue Kefzol 2 g post HD Catheter is pulled today and reinsert when no bacteremia for 72 hours minimum Time Spent With Patient Time: Total time managing care of this patient today ____ minutes.
[2022-08-12 02:51] VITALS: BP 151/69; PULSE 70; RESP 18; TEMP 36; O2SAT 98
[2022-08-12] MEDS: Heparin Sodium,Porcine 5,000 UNIT/ML VIAL 5000 UNIT SUBCUT ×3 (03:03→18:31)
[2022-08-12] MEDS: ondansetron HCL 4 MG/2 ML VIAL IVPUSH ×2 (03:07→23:15)
[2022-08-12 07:01] VITALS: BP 150/74; PULSE 69; RESP 18; TEMP 36.1; O2SAT 95
[2022-08-12] MEDS: polyethylene glycoL 3350 17 GM POWD.PACK PO (08:23)
[2022-08-12] MEDS: Nicotine 21 MG PATCH.TD24 TRANSDERMA (08:23)
[2022-08-12] MEDS: Lidocaine 4 % Patch ADH..PATCH 1 PATCH TRANSDERMA (08:23)
[2022-08-12] MEDS: cloNIDine HCL 0.2 MG TABLET PO ×2 (08:24→19:39)
[2022-08-12] MEDS: Buprenorphine/Naloxone 8/2 mg FILM 2 FILM SUBLINGUAL (08:24)
[2022-08-12] MEDS: hydrALAZINE HCl 50 MG TABLET 100 MG PO ×3 (08:24→19:38)
[2022-08-12] MEDS: carvediloL 6.25 MG TABLET PO ×2 (08:24→19:40)
[2022-08-12] MEDS: amLODIPine Besylate 10 MG TABLET PO (08:24)
[2022-08-12] MEDS: Isosorbide Dinitrate 10 MG TABLET 30 MG PO ×3 (08:24→19:39)
[2022-08-12] MEDS: Bumetanide 1 MG TABLET 2 MG PO (08:24)
[2022-08-12] MEDS: Aspirin Enteric Coated 81 MG TABLET.DR PO (08:24)
[2022-08-12] MEDS: Docusate Sodium 100 MG CAPSULE PO ×2 (08:24→19:40)
[2022-08-12] MEDS: dilTIAZem HCL CD 180 MG CAP.ER.24H 360 MG PO (08:25)
[2022-08-12] MEDS: 0.9 % Sodium Chloride Flush 3 ML SYRINGE IVFLUSH ×3 (08:30→23:10)
[2022-08-12] MEDS: diphenhydrAMINE HCL 25 MG CAPSULE PO (09:02)
--- NOTE | 2022-08-12 10:03 | HO.PM.IMPN ---
Subjective Subjective Date of Service: 08/12/22 Interval History: This history was taken in Yakut from the patient. HD yesterday then catheter removed. Had some pain afterwards but this has resolved. No fever. Review of Systems Review of Systems: Yes all other systems are reviewed and are negative Physical Exam Vital Signs: Vital Signs: Last Vital Signs Temp 97 F 08/12/22 07:01 Pulse 69 08/12/22 07:01 Resp 18 08/12/22 07:01 BP 150/74 H 08/12/22 07:01 Pulse Ox 95 08/12/22 07:01 O2 Del Method Room Air 08/12/22 07:01 BMI result Body Mass Index 22.4 Gen: in no acute distress HEENT: sclera anicteric, moist mucus membranes Neck: supple Lungs: clear to auscultation bilaterally Heart: regular rate and rhythm, no murmurs Abd: soft, non-tender, non-distended Ext: no edema Skin: warm/well-perfused Neuro: alert and oriented x3, no focal findings Psych: appropriate affect Objective Data Active Medications Acetaminophen (Acetaminophen 325 Mg Tablet) 650 mg PO Q6H PRN PRN Reason: Pain, Mild (Pain Scale 1-3) Last Admin: 08/11/22 18:31 Dose: 650 mg Documented By: JULIA Albuterol Sulfate (Albuterol Sulfate 90 Mcg 8 Gm Inhaler) 2 puff INHALE Q4H PRN PRN Reason: wheezing Albuterol Sulfate (Albuterol Sulfate (0.083%) 2.5 Mg/3 Ml Vial.Neb) 2.5 mg INHALE TID PRN PRN Reason: Shortness Of Breath Amlodipine Besylate (Amlodipine Besylate 10 Mg Tablet) 10 mg PO DAILY [facility]; Protocol Last Admin: 08/12/22 08:24 Dose: 10 mg Documented By: TIFFANY Aspirin (Aspirin Enteric Coated 81 Mg Tablet.) 81 mg PO DAILY [facility] Last Admin: 08/12/22 08:24 Dose: 81 mg Documented By: TIFFANY Bumetanide (Bumetanide 1 Mg Tablet) 2 mg PO DAILY [facility]; Protocol Last Admin: 08/12/22 08:24 Dose: 2 mg Documented By: TIFFANY Buprenorphine/Naloxone (Buprenorphine/Naloxone 8/2 Mg Film) 2 film SUBLINGUAL DAILY [facility] Last Admin: 08/12/22 08:24 Dose: 2 film Documented By: TIFFANY Carvedilol (Carvedilol 6.25 Mg Tablet) 6.25 mg PO BID [facility]; Protocol Last Admin: 08/12/22 08:24 Dose: 6.25 mg Documented By: TIFFANY Clonidine HCl (Clonidine Hcl 0.2 Mg Tablet) 0.2 mg PO BID [facility]; Protocol Last Admin: 08/12/22 08:24 Dose: 0.2 mg Documented By: TIFFANY Diltiazem HCl (Diltiazem Hcl Cd 180 Mg Cap.Er.24h) 360 mg PO DAILY [facility]; Protocol Last Admin: 08/12/22 08:25 Dose: 360 mg Documented By: TIFFANY Diphenhydramine HCl (Diphenhydramine Hcl 25 Mg Capsule) 25 mg PO DAILY PRN PRN Reason: allergy symptoms Last Admin: 08/12/22 09:02 Dose: 25 mg Documented By: TIFFANY Docusate Sodium (Docusate Sodium 100 Mg Capsule) 100 mg PO BID [facility] Last Admin: 08/12/22 08:24 Dose: 100 mg Documented By: TIFFANY Fluticasone Propionate (Fluticasone Propionate 100 Mcg Blst.W.Dev) 1 puff INHALE RBID [facility] Last Admin: 08/12/22 08:11 Dose: Not Given Documented By: JEANETTE Non-Admin Reason: Patient Refused Heparin Sodium (Porcine) (Heparin Sodium,Porcine 5,000 Unit/Ml Vial) 5,000 unit SUBCUT Q8H [facility] Last Admin: 08/12/22 03:03 Dose: 5,000 unit Documented By: DAYRON Hydralazine HCl (Hydralazine Hcl 50 Mg Tablet) 100 mg PO TID [facility]; Protocol Last Admin: 08/12/22 08:24 Dose: 100 mg Documented By: TIFFANY Cefazolin Sodium 2 gm/ Sodium (Chloride) 50 mls @ 100 mls/hr IV MoWeFr@2000 [facility] Last Infusion: 08/11/22 20:28 Dose: 0 mls/hr Documented By: DAYRON Isosorbide Dinitrate (Isosorbide Dinitrate 10 Mg Tablet) 30 mg PO TID [facility]; Protocol Last Admin: 08/12/22 08:24 Dose: 30 mg Documented By: TIFFANY Lactulose (Lactulose 20 Gm/30 Ml Solution) 10 gm PO DAILY PRN PRN Reason: constipation Last Admin: 08/08/22 10:59 Dose: 10 gm Documented By: TONIE Lidocaine (Lidocaine 4 % Patch Adh..Patch) 1 patch TRANSDERMA DAILY [facility]; Protocol Last Admin: 08/12/22 08:23 Dose: 1 patch Documented By: TIFFANY Melatonin (Melatonin 3 Mg Tablet) 3 mg PO BEDTIME PRN PRN Reason: Insomnia Last Admin: 08/10/22 23:23 Dose: 3 mg Documented By: VINCENT Nicotine (Nicotine 21 Mg Patch.Td24) 21 mg TRANSDERMA DAILY [facility] Last Admin: 08/12/22 08:23 Dose: 21 mg Documented By: TIFFANY Ondansetron HCl (Ondansetron Hcl 4 Mg/2 Ml Vial) 4 mg IVPUSH Q8H PRN PRN Reason: Nausea and Vomiting Last Admin: 08/12/22 03:07 Dose: 4 mg Documented By: DAYRON Oxycodone HCl (Oxycodone Hcl Immed Release 5 Mg Tablet) 5 mg PO Q4H PRN PRN Reason: severe pain Last Admin: 08/11/22 15:34 Dose: 5 mg Documented By: JULIA Pharmacy Consult (Consult Rx Perform Med Rec) 1 each MISCELLANE ONCE PRN PRN Reason: Consult order Polyethylene Glycol (Polyethylene Glycol 3350 17 Gm Powd.Pack) 17 gm PO DAILY [facility] Last Admin: 08/12/22 08:23 Dose: 17 gm Documented By: TIFFANY Sodium Chloride (0.9 % Sodium Chloride Flush 3 Ml Syringe) 3 ml IVFLUSH QSHIFT [facility] Last Admin: 08/12/22 08:30 Dose: 3 ml Documented By: TIFFANY Labs 08/09/22 05:09 08/08/22 05:04 Microbiology Microbiology Results: Microbiology 08/11/22 14:43 Catheter Tip Culture - Preliminary Catheter Tip - Subclavian Culture in progress. 08/08/22 05:04 Blood Culture - Preliminary Blood - Venous Staphylococcus aureus Assessment and Plan (1) Bacteremia: Status: Acute (2) Tachycardia: Status: Acute (3) Leukocytosis: Status: Acute (4) Fever: Status: Acute (5) End stage chronic kidney disease: Status: Acute Plan d#6 67yo F with ESRD on HD MWF, HTN, chronic opiate dependence on Suboxone, DM, HFpEF. Admitted for fluid overload secondary to CHF and ESRD + multilobar pneumonia, found to have MSSA bacteremia # MSSA bacteremia with HD catheter in place - BCx from 08/08 positive for Staph aureus at 76 hr. redraw BCx for surveillance today. changed from vanco to cefazolin 08/10/22. will need 42d once BCx documented clear - TTE pending - catheter holiday. replace next week once BCx cleared x 72hr, earliest would be 08/15/22 # chronic hypoxic resp failure # COPD without acute exac - on home O2 1L via [place] - prn albuterol # ESRD - HD MWF # HTN - continue clonidine, carvedilol, amlodipine, bumetanide, diltiazem, isosorbide dinitrate, hydralazine # constipation - resolved, on maintenance stool softeners # OUD - Suboxone # tobacco abuse - NRT # VTE ppx: UFH # dispo: plan eventual home with VNA In my clinical judgment, the patient requires continued inpatient hospitalization for the following reasons: catheter replacement, persistent bacteremia Time Spent With Patient Time: Total time managing care of this patient today __35__ minutes. Quality Stroke Does the patient have a stroke diagnosis?: No VTE Prior VTE?: No VTE Risk Level:: Medical - moderate - high VTE Device Contraindication: Treatment Not Indicated VTE Drug Contraindication: N/A - Med Ordered
--- NOTE | 2022-08-12 12:57 | PM.PNNEP ---
Subjective Subjective Date of Service: 08/12/22 Interval history: seen and examined had HD yesterday dialysis tunnelled removed sitting out of bed Physical Exam Vital Signs: Vital Signs: Last Vital Signs Temp 97 F 08/12/22 07:01 Pulse 69 08/12/22 07:01 Resp 18 08/12/22 07:01 BP 150/74 H 08/12/22 07:01 Pulse Ox 95 08/12/22 07:01 O2 Del Method Room Air 08/12/22 07:01 BMI result Body Mass Index 22.4 Const: General: no acute distress HEENT: Head: Yes normocephalic and Yes atraumatic Neck: Neck: Yes supple Resp: Auscultation: diminished lung sounds Cardio: Heart sounds: S1 normal heart sound present and S2 normal heart sound present GI: Palpation (GI): Soft to palpation and nontender Extrem: General: No edema Objective Data Labs 08/09/22 05:09 08/08/22 05:04 Microbiology Microbiology Results: Microbiology 08/11/22 14:43 Catheter Tip - Subclavian Catheter Tip Culture - Preliminary Culture in progress. 08/08/22 05:04 Blood - Venous Blood Culture - Preliminary Staphylococcus aureus 08/07/22 15:32 Blood - Venous Blood Culture - Final Staphylococcus aureus 08/07/22 15:00 Blood - Venous Blood Culture - Final Staphylococcus aureus 08/08/22 05:04 Blood - Venous Blood Culture - Preliminary No growth after 48 hours. Procedures Date of Service Date of Service: 08/12/22 Assessment & Plan Assessment and plan (1) End stage chronic kidney disease: Status: Acute (2) Bacteremia: Status: Acute Plan usually had HD t-t-s GPC bacteremia c/w line infection dialysis tunnelled catheter discontinued on 08/11 REC follow blood culture line holiday renal diet phosphate binders CRUZITO per protocol ABx Time Spent With Patient Time: Total time managing care of this patient today ____ minutes. Progress Note: Quality Stroke Does the patient have a stroke diagnosis?: No
[2022-08-12 14:37] VITALS: BP 140/62; PULSE 54; RESP 18; TEMP 36.6; O2SAT 96
[2022-08-12] MEDS: Acetaminophen 325 MG TABLET 650 MG PO (18:36)
[2022-08-12 19:23] VITALS: BP 160/72; PULSE 61; RESP 18; TEMP 36.3; O2SAT 97
[2022-08-12 20:16] VITALS: PULSE 61; RESP 18; O2SAT 95
[2022-08-12] MEDS: Fluticasone Propionate 100 MCG BLST.W.DEV 1 PUFF INHALE (20:16)
[2022-08-13] VITALS (7 sets, daily range): BP systolic 164–178; BP diastolic 70–75; PULSE 50–65; RESP 15–18; TEMP 36–36.4; O2SAT 94–100
--- NOTE | 2022-08-13 | ECG_ITS ---
Test Reason : hyperK Blood Pressure : / mmHG Vent. Rate : 052 BPM Atrial Rate : 052 BPM P-R Int : 218 ms QRS Dur : 108 ms QT Int : 440 ms P-R-T Axes : 068 -45 060 degrees QTc Int : 409 ms Sinus bradycardia with 1st degree A-V block Possible Left atrial enlargement Left anterior fascicular block Minimal voltage criteria for LVH, may be normal variant ( Marshall product ) Abnormal ECG When compared with ECG of 07-AUG-2022 15:14, decrease in ventricular rate Referred By: Florence Mesa Electronically Signed By:SALVADOR SARABIA
--- NOTE | 2022-08-13 | ECG_ITS ---
Test Reason : high K+ Blood Pressure : / mmHG Vent. Rate : 056 BPM Atrial Rate : 056 BPM P-R Int : 196 ms QRS Dur : 098 ms QT Int : 444 ms P-R-T Axes : 082 -24 022 degrees QTc Int : 428 ms Artifact in tracing Sinus bradycardia Possible Left atrial enlargement Minimal voltage criteria for LVH, may be normal variant ( Jona product ) Borderline ECG When compared with ECG of 13-AUG-2022 10:07, No significant changes seen Referred By: Florence Mesa Electronically Signed By:SALVADOR SARABIA
[2022-08-13] MEDS: oxyCODONE HCl Immed Release 5 MG TABLET PO ×2 (03:53→23:48)
[2022-08-13] MEDS: Heparin Sodium,Porcine 5,000 UNIT/ML VIAL 5000 UNIT SUBCUT ×3 (03:54→19:33)
[2022-08-13] MEDS: Fluticasone Propionate 100 MCG BLST.W.DEV 1 PUFF INHALE ×2 (08:12→18:50)
--- NOTE | 2022-08-13 08:15 | PM.PNNEP ---
Subjective Subjective Date of Service: 08/13/22 Interval history: seen and examined no complaints Physical Exam Vital Signs: Vital Signs: Last Vital Signs Temp 97.3 F 08/13/22 07:34 Pulse 57 08/13/22 08:13 Resp 16 08/13/22 08:13 BP 178/75 H 08/13/22 07:34 Pulse Ox 100 08/13/22 07:34 O2 Del Method Room Air 08/13/22 07:34 BMI result Body Mass Index 22.4 Const: General: no acute distress HEENT: Head: Yes normocephalic and Yes atraumatic Neck: Neck: Yes supple Resp: Auscultation: diminished lung sounds Cardio: Heart sounds: S1 normal heart sound present and S2 normal heart sound present GI: Palpation (GI): Soft to palpation and nontender Extrem: General: No edema Objective Data Labs 08/09/22 05:09 08/08/22 05:04 Microbiology Microbiology Results: Microbiology 08/08/22 05:04 Blood - Venous Blood Culture - Final No growth after 5 days. 08/08/22 05:04 Blood - Venous Blood Culture - Final Staphylococcus aureus 08/12/22 05:11 Blood - Venous Blood Culture - Preliminary No growth after 24 hours. 08/12/22 05:14 Blood - Venous Blood Culture - Preliminary No growth after 24 hours. 08/11/22 14:43 Catheter Tip - Subclavian Catheter Tip Culture - Preliminary Culture in progress. 08/07/22 15:32 Blood - Venous Blood Culture - Final Staphylococcus aureus 08/07/22 15:00 Blood - Venous Blood Culture - Final Staphylococcus aureus Procedures Date of Service Date of Service: 08/13/22 Assessment & Plan Assessment and plan (1) End stage chronic kidney disease: Status: Acute (2) Bacteremia: Status: Acute Plan last HD on Sunday usually had HD t-t-s GPC bacteremia c/w line infection dialysis tunnelled catheter discontinued on 08/11 REC daily blood culture line holiday new dialysis tunnelled catheter if blood culture negative for 48 hous renal diet phosphate binders CRUZITO ABx Time Spent With Patient Time: Total time managing care of this patient today ____ minutes. Progress Note: Quality Stroke Does the patient have a stroke diagnosis?: No
[2022-08-13] MEDS: amLODIPine Besylate 10 MG TABLET PO (08:17)
[2022-08-13] MEDS: Aspirin Enteric Coated 81 MG TABLET.DR PO (08:17)
[2022-08-13] MEDS: hydrALAZINE HCl 50 MG TABLET 100 MG PO ×3 (08:17→20:11)
[2022-08-13] MEDS: Isosorbide Dinitrate 10 MG TABLET 30 MG PO ×3 (08:17→20:11)
[2022-08-13] MEDS: cloNIDine HCL 0.2 MG TABLET PO ×2 (08:17→20:12)
[2022-08-13] MEDS: Docusate Sodium 100 MG CAPSULE PO ×2 (08:18→20:12)
[2022-08-13] MEDS: dilTIAZem HCL CD 180 MG CAP.ER.24H 360 MG PO (08:18)
[2022-08-13] MEDS: carvediloL 6.25 MG TABLET PO ×2 (08:18→20:12)
[2022-08-13] MEDS: polyethylene glycoL 3350 17 GM POWD.PACK PO (08:18)
[2022-08-13] MEDS: Buprenorphine/Naloxone 8/2 mg FILM 2 FILM SUBLINGUAL (08:18)
[2022-08-13] MEDS: Nicotine 21 MG PATCH.TD24 TRANSDERMA (08:19)
[2022-08-13] MEDS: Lidocaine 4 % Patch ADH..PATCH 1 PATCH TRANSDERMA (08:19)
[2022-08-13] MEDS: ondansetron HCL 4 MG/2 ML VIAL IVPUSH (08:22)
[2022-08-13] MEDS: Bumetanide 1 MG TABLET 2 MG PO (08:22)
[2022-08-13] MEDS: 0.9 % Sodium Chloride Flush 3 ML SYRINGE IVFLUSH ×3 (08:23→19:35)
[2022-08-13] MEDS: diphenhydrAMINE HCL 25 MG CAPSULE PO (08:33)
[2022-08-13 09:46] LABS: Anion Gap 19 (12-20); Blood Urea Nitrogen 45 mg/dL (9-16); Calcium 8.6 mg/dL (8.4-10.2); Carbon Dioxide 23 mmol/L (22-29); Chloride 91 mmol/L (96-108); Creatinine Clr Calc Pharmacy 6.1; Estimated Glomerular Filt Rate 6; Glucose Random 167 mg/dL (60-115); Potassium 7.3 mmol/L (3.3-5.1); Sodium 126 mmol/L (135-145)
[2022-08-13] MEDS: Sodium Zirconium Cyclosilicate 10 GM POWD.PACK PO ×4 (10:16→20:10)
[2022-08-13] MEDS: Insulin Regular, Human 100 UNIT/ML 3 ML VIAL 10 UNIT IVPUSH ×2 (10:16→16:40)
[2022-08-13] MEDS: Dextrose 10 % 250 ML 750 ML IV ×2 (10:25→16:41)
[2022-08-13] MEDS: Albuterol Sulfate (0.083%) 2.5 MG/3 ML VIAL.NEB 10 MG INHALE ×2 (10:47→18:50)
[2022-08-13 10:51] LABS: Glucose, Whole Blood 256 mg/dL (60-115)
[2022-08-13 10:51] LABS: Glucose, Whole Blood 243 mg/dL (60-115)
[2022-08-13] MEDS: Calcium Gluconate/NaCl,Iso-Osm 1 GM/50 ML PLAST..BAG IV ×2 (10:51→17:13)
--- NOTE | 2022-08-13 10:57 | P.PNIM_ITS ---
Subjective Subjective Date of Service: 08/13/22 Interval History: This history was taken in Serbian from the patient. Catheter out past 2d. No fever/chills. K 7.3. No EKG changes. Treatment started. Review of Systems Review of Systems: Yes all other systems are reviewed and are negative Physical Exam Vital Signs: Vital Signs: Last Vital Signs Temp 97.3 F 08/13/22 07:34 Pulse 65 08/13/22 10:49 Resp 18 08/13/22 10:49 BP 178/75 H 08/13/22 07:34 Pulse Ox 100 08/13/22 07:34 O2 Del Method Room Air 08/13/22 07:34 BMI result Body Mass Index 22.4 Gen: in no acute distress HEENT: sclera anicteric, moist mucus membranes Neck: supple Lungs: clear to auscultation bilaterally Heart: regular rate and rhythm, no murmurs Abd: soft, non-tender, non-distended Ext: no edema Skin: warm/well-perfused Neuro: alert and oriented x3, no focal findings Psych: appropriate affect Objective Data Active Medications Acetaminophen (Acetaminophen 325 Mg Tablet) 650 mg PO Q6H PRN PRN Reason: Pain, Mild (Pain Scale 1-3) Last Admin: 08/12/22 18:36 Dose: 650 mg Documented By: TIFFANY Albuterol Sulfate (Albuterol Sulfate 90 Mcg 8 Gm Inhaler) 2 puff INHALE Q4H PRN PRN Reason: wheezing Albuterol Sulfate (Albuterol Sulfate (0.083%) 2.5 Mg/3 Ml Vial.Neb) 2.5 mg INHALE TID PRN PRN Reason: Shortness Of Breath Amlodipine Besylate (Amlodipine Besylate 10 Mg Tablet) 10 mg PO DAILY [facility]; Protocol Last Admin: 08/13/22 08:17 Dose: 10 mg Documented By: TIFFANY Aspirin (Aspirin Enteric Coated 81 Mg Tablet.) 81 mg PO DAILY [facility] Last Admin: 08/13/22 08:17 Dose: 81 mg Documented By: TIFFANY Bumetanide (Bumetanide 1 Mg Tablet) 2 mg PO DAILY [facility]; Protocol Last Admin: 08/13/22 08:22 Dose: 2 mg Documented By: TIFFANY Buprenorphine/Naloxone (Buprenorphine/Naloxone 8/2 Mg Film) 2 film SUBLINGUAL DAILY [facility] Last Admin: 08/13/22 08:18 Dose: 2 film Documented By: TIFFANY Carvedilol (Carvedilol 6.25 Mg Tablet) 6.25 mg PO BID [facility]; Protocol Last Admin: 08/13/22 08:18 Dose: 6.25 mg Documented By: TIFFANY Clonidine HCl (Clonidine Hcl 0.2 Mg Tablet) 0.2 mg PO BID [facility]; Protocol Last Admin: 08/13/22 08:17 Dose: 0.2 mg Documented By: TIFFANY Diltiazem HCl (Diltiazem Hcl Cd 180 Mg Cap.Er.24h) 360 mg PO DAILY [facility]; Protocol Last Admin: 08/13/22 08:18 Dose: 360 mg Documented By: TIFFANY Diphenhydramine HCl (Diphenhydramine Hcl 25 Mg Capsule) 25 mg PO DAILY PRN PRN Reason: allergy symptoms Last Admin: 08/13/22 08:33 Dose: 25 mg Documented By: TIFFANY Docusate Sodium (Docusate Sodium 100 Mg Capsule) 100 mg PO BID [facility] Last Admin: 08/13/22 08:18 Dose: 100 mg Documented By: TIFFANY Fluticasone Propionate (Fluticasone Propionate 100 Mcg Blst.W.Dev) 1 puff INHALE RBID [facility] Last Admin: 08/13/22 08:12 Dose: 1 puff Documented By: JEANETTE Heparin Sodium (Porcine) (Heparin Sodium,Porcine 5,000 Unit/Ml Vial) 5,000 unit SUBCUT Q8H [facility] Last Admin: 08/13/22 03:54 Dose: 5,000 unit Documented By: KIMI Hydralazine HCl (Hydralazine Hcl 50 Mg Tablet) 100 mg PO TID [facility]; Protocol Last Admin: 08/13/22 08:17 Dose: 100 mg Documented By: TIFFANY Cefazolin Sodium 2 gm/ Sodium (Chloride) 50 mls @ 100 mls/hr IV MoWeFr@2000 [facility] Last Infusion: 08/11/22 20:28 Dose: 0 mls/hr Documented By: CASTSARITA Isosorbide Dinitrate (Isosorbide Dinitrate 10 Mg Tablet) 30 mg PO TID [facility]; Protocol Last Admin: 08/13/22 08:17 Dose: 30 mg Documented By: TIFFANY Lactulose (Lactulose 20 Gm/30 Ml Solution) 10 gm PO DAILY PRN PRN Reason: constipation Last Admin: 08/08/22 10:59 Dose: 10 gm Documented By: TONIE Lidocaine (Lidocaine 4 % Patch Adh..Patch) 1 patch TRANSDERMA DAILY [facility]; Protocol Last Admin: 08/13/22 08:19 Dose: 1 patch Documented By: TIFFANY Melatonin (Melatonin 3 Mg Tablet) 3 mg PO BEDTIME PRN PRN Reason: Insomnia Last Admin: 08/10/22 23:23 Dose: 3 mg Documented By: VINCENT Nicotine (Nicotine 21 Mg Patch.Td24) 21 mg TRANSDERMA DAILY [facility] Last Admin: 08/13/22 08:19 Dose: 21 mg Documented By: TIFFANY Ondansetron HCl (Ondansetron Hcl 4 Mg/2 Ml Vial) 4 mg IVPUSH Q8H PRN PRN Reason: Nausea and Vomiting Last Admin: 08/13/22 08:22 Dose: 4 mg Documented By: TIFFANY Oxycodone HCl (Oxycodone Hcl Immed Release 5 Mg Tablet) 5 mg PO Q4H PRN PRN Reason: severe pain Last Admin: 08/13/22 03:53 Dose: 5 mg Documented By: KIMI Pharmacy Consult (Consult Rx Perform Med Rec) 1 each MISCELLANE ONCE PRN PRN Reason: Consult order Polyethylene Glycol (Polyethylene Glycol 3350 17 Gm Powd.Pack) 17 gm PO DAILY [facility] Last Admin: 08/13/22 08:18 Dose: 17 gm Documented By: TIFFAYN Sodium Chloride (0.9 % Sodium Chloride Flush 3 Ml Syringe) 3 ml IVFLUSH QSHIFT [facility] Last Admin: 08/13/22 08:23 Dose: 3 ml Documented By: TIFFANY Sodium Zirconium Cyclosilicate (Sodium Zirconium Cyclosilicate 10 Gm Powd.Pack) 10 gm PO TID [facility] Stop: 08/14/22 21:01 Last Admin: 08/13/22 10:16 Dose: 10 gm Documented By: TIFFANY Labs 08/09/22 05:09 08/13/22 08:49 Labs: Laboratory Results - last 24 hr 0308/13/22 08/13/22 08:49 10:44 10:46 Anion Gap 19 Estim Creat Clear Calc 6.1 Estimated GFR 6 POC Glucose 243 H 256 H Random Glucose 167 H Calcium 8.6 Microbiology Microbiology Results: Microbiology 08/08/22 05:04 Blood Culture - Final Blood - Venous No growth after 5 days. 08/08/22 05:04 Blood Culture - Final Blood - Venous Staphylococcus aureus 08/12/22 05:11 Blood Culture - Preliminary Blood - Venous No growth after 24 hours. 08/12/22 05:14 Blood Culture - Preliminary Blood - Venous No growth after 24 hours. 08/11/22 14:43 Catheter Tip Culture - Preliminary Catheter Tip - Subclavian Culture in progress. Assessment and Plan (1) Bacteremia: Status: Acute (2) Tachycardia: Status: Acute (3) Fever: Status: Acute (4) End stage chronic kidney disease: Status: Acute Plan d#7 67yo F with ESRD on HD MWF, HTN, chronic opiate dependence on Suboxone, DM, HFpEF. Admitted for fluid overload secondary to CHF and ESRD + multilobar pneumonia, found to have MSSA bacteremia # hyperK - no EKG changes but will give Ca gluconate given degree. will also give SZC 1 0g tid x6, IV insulin 10 units + D50, 10 mg albuterol neb. then recheck K. Nephrology notified # MSSA bacteremia with HD catheter in place - BCx from 08/08 positive for MSSA at 76 hr. redrew BCx for surveillance 08/12/22. changed from vanco to cefazolin 08/10/22. will need 42d of cefazolin 2g p HD once BCx documented clear - TTE pending - catheter holiday. replace next week once BCx cleared x 72hr, earliest would be 08/15/22 # chronic hypoxic resp failure # COPD without acute exac - on home O2 1L via NC - prn albuterol # ESRD - HD MWF was usual schedule # HTN - continue clonidine, carvedilol, amlodipine, bumetanide, diltiazem, isosorbide dinitrate, hydralazine # constipation - resolved, on maintenance stool softeners # OUD - Suboxone # tobacco abuse - NRT # VTE ppx: UFH # dispo: plan eventual home with VNA In my clinical judgment, the patient requires continued inpatient hospi talization for the following reasons: catheter replacement, persistent bacteremia, hyperK Time Spent With Patient Time: Total time managing care of this patient today __50__ minutes. Quality Stroke Does the patient have a stroke diagnosis?: No VTE Prior VTE?: No VTE Risk Level:: Medical - moderate - high VTE Device Contraindication: Treatment Not Indicated VTE Drug Contraindication: N/A - Med Ordered
[2022-08-13 12:16] LABS: Anion Gap 19 (12-20); Blood Urea Nitrogen 47 mg/dL (9-16); Calcium 8.6 mg/dL (8.4-10.2); Carbon Dioxide 21 mmol/L (22-29); Chloride 93 mmol/L (96-108); Estimated Glomerular Filt Rate 6; Glucose Random 74 mg/dL (60-115); Potassium 6.3 mmol/L (3.3-5.1); Sodium 127 mmol/L (135-145)
[2022-08-13 16:08] LABS: Anion Gap 21 (12-20); Blood Urea Nitrogen 50 mg/dL (9-16); Calcium 8.2 mg/dL (8.4-10.2); Carbon Dioxide 22 mmol/L (22-29); Chloride 89 mmol/L (96-108); Creatinine Clr Calc Pharmacy 5.7; Estimated Glomerular Filt Rate 6; Glucose Random 194 mg/dL (60-115); Potassium 6.9 mmol/L (3.3-5.1); Sodium 125 mmol/L (135-145)
--- NOTE | 2022-08-13 16:23 | PM.EVENT ---
Event Note Date of Service: 08/13/22 Event Note: K 7.3->6.3->6.9 No EKG changes HCO3 [address] Ardon Plan: repeat Ca gluconate 1 g, albuterol 10 mg, insulin 10 units IV + D50, give extra dose of Lokelma 10g. Trial of 100 mg IV furosemide. Repeat BMP 7pm NPO after midnight for temporary HD catheter tomorrow, possible conversion to tunnel cath 08/15 as long as BCx clear Time Spent With Patient Time: Total time managing care of this patient today ____ minutes.
[2022-08-13] MEDS: Furosemide 100 MG/10 ML VIAL IVPUSH (16:39)
[2022-08-13 18:12] LABS: Glucose, Whole Blood 111 mg/dL (60-115)
--- NOTE | 2022-08-13 19:04 | PC.NURSE ---
Pt had multiple criticals of high K+ and creat. K+=7.3, creat- 6.48 @ 9:42. MD montgomery notified. rdered tele and get stat EKG. Lokelma 10 grams, 1 amp Ca gluconate, 1 amp D50, and 10 units IV insulin. Plus 10mg nebulized albuterol. Rechecked K+ @ 12:11 w/only slight improvment of K-=6.3. Ordered to recheck @1500. K+6.9. Repeated the above order per md. orderd repeat bmp @ 1900.
[2022-08-13 19:46] LABS: INTERNATIONAL NORM RATIO 0.8 (0.9-1.1); Prothrombin Time 9.5 SEC (10.0-13.1)
[2022-08-13 19:49] LABS: Partial Thromboplastin Time 33.8 SEC (26.0-36.4)
[2022-08-13 20:15] LABS: Anion Gap 24 (12-20); Blood Urea Nitrogen 52 mg/dL (9-16); Calcium 8.5 mg/dL (8.4-10.2); Carbon Dioxide 18 mmol/L (22-29); Chloride 90 mmol/L (96-108); Creatinine Clr Calc Pharmacy 5.7; Estimated Glomerular Filt Rate 6; Glucose Random 82 mg/dL (60-115); Potassium 6.5 mmol/L (3.3-5.1); Potassium, Plasma 6.2 mmol/L (3.3-5.1); Sodium 125 mmol/L (135-145)
[2022-08-13 20:32] LABS: Glucose, Whole Blood 105 mg/dL (60-115)
[2022-08-13] MEDS: Melatonin 3 MG TABLET PO (23:48)
[2022-08-14] VITALS (8 sets, daily range): BP systolic 119–167; BP diastolic 48–82; PULSE 49–82; RESP 16–20; TEMP 36.1–36.6; O2SAT 95–100
--- NOTE | 2022-08-14 | ECG_ITS ---
Test Reason : CP Blood Pressure : / mmHG Vent. Rate : 060 BPM Atrial Rate : 060 BPM P-R Int : 232 ms QRS Dur : 098 ms QT Int : 432 ms P-R-T Axes : 074 -13 050 degrees QTc Int : 432 ms Sinus rhythm with 1st degree A-V block Possible Left atrial enlargement Left ventricular hypertrophy ( Sokolow-Burton , Marvin product ) Abnormal ECG When compared with ECG of 13-AUG-2022 16:25, CA interval has increased Referred By: Florence Mesa Electronically Signed By:SALVADOR SARABIA
--- NOTE | 2022-08-14 | ECG_ITS ---
Test Reason : chest pain Blood Pressure : / mmHG Vent. Rate : 053 BPM Atrial Rate : 053 BPM P-R Int : 198 ms QRS Dur : 106 ms QT Int : 450 ms P-R-T Axes : 003 -25 033 degrees QTc Int : 422 ms Artifact in tracing Sinus bradycardia Moderate voltage criteria for LVH, may be normal variant ( R in aVL , Jona product ) Borderline ECG When compared with ECG of 14-AUG-2022 06:28, SD interval has decreased Referred By: Florence Mesa Electronically Signed By:SALVADOR SARABIA
[2022-08-14 01:07] LABS: Anion Gap 21 (12-20); Blood Urea Nitrogen 55 mg/dL (9-16); Carbon Dioxide 22 mmol/L (22-29); Chloride 88 mmol/L (96-108); Creatinine Clr Calc Pharmacy 5.4; Estimated Glomerular Filt Rate 6; Glucose Random 190 mg/dL (60-115); Potassium 6.5 mmol/L (3.3-5.1); Sodium 124 mmol/L (135-145)
--- NOTE | 2022-08-14 01:28 | PC.NURSE ---
twice critical lab report from lab, dr. Torres notified, and MT. pt no symptomatic, comfortably sleeping in the recliner. continuously monitor telemonitor
[2022-08-14] MEDS: Heparin Sodium,Porcine 5,000 UNIT/ML VIAL 5000 UNIT SUBCUT ×3 (02:35→20:20)
[2022-08-14 05:13] LABS: Glucose, Whole Blood 160 mg/dL (60-115)
--- NOTE | 2022-08-14 06:09 | PC.NURSE ---
pt complained about the dizziness around 04:00, pt wants to eat or drink, educated to pt NPO status again, checked POC 160, BP 155/70, and SB 50s, T wave inverted. Dr. Torres notified and order ECG.
[2022-08-14] MEDS: ondansetron HCL 4 MG/2 ML VIAL IVPUSH ×3 (06:43→20:38)
[2022-08-14 07:37] LABS: Glucose, Whole Blood 152 mg/dL (60-115)
[2022-08-14] MEDS: Buprenorphine/Naloxone 8/2 mg FILM 2 FILM SUBLINGUAL (08:09)
[2022-08-14] MEDS: Aspirin Enteric Coated 81 MG TABLET.DR PO (08:09)
[2022-08-14] MEDS: Sodium Zirconium Cyclosilicate 10 GM POWD.PACK PO ×2 (08:09→20:20)
[2022-08-14] MEDS: Lidocaine 4 % Patch ADH..PATCH 1 PATCH TRANSDERMA (08:09)
[2022-08-14] MEDS: Nicotine 21 MG PATCH.TD24 TRANSDERMA (08:09)
[2022-08-14] MEDS: dilTIAZem HCL CD 180 MG CAP.ER.24H 360 MG PO (08:10)
[2022-08-14] MEDS: carvediloL 6.25 MG TABLET PO ×2 (08:10→20:21)
[2022-08-14] MEDS: Isosorbide Dinitrate 10 MG TABLET 30 MG PO ×2 (08:10→20:22)
[2022-08-14] MEDS: hydrALAZINE HCl 50 MG TABLET 100 MG PO ×2 (08:10→20:21)
[2022-08-14] MEDS: cloNIDine HCL 0.2 MG TABLET PO ×2 (08:10→20:21)
[2022-08-14] MEDS: amLODIPine Besylate 10 MG TABLET PO (08:10)
[2022-08-14] MEDS: Fluticasone Propionate 100 MCG BLST.W.DEV 1 PUFF INHALE ×2 (08:53→21:28)
[2022-08-14] MEDS: 0.9 % Sodium Chloride Flush 3 ML SYRINGE IVFLUSH ×2 (09:54→20:34)
--- NOTE | 2022-08-14 10:35 | P.PNNP_ITS ---
Subjective Subjective Date of Service: 08/15/22 Interval history: Events noted but potassium has been persistently elevated. She has received Lokelma. Scheduled for dialysis catheter insertion. Physical Exam Vital Signs: Vital Signs: Last Vital Signs Temp 97.8 F 08/14/22 07:11 Pulse 61 08/14/22 08:55 Resp 18 08/14/22 07:11 BP 156/68 H 08/14/22 07:11 Pulse Ox 95 08/14/22 07:11 O2 Del Method Room Air 08/14/22 07:11 BMI result Body Mass Index 22.4 Const: Other: Gen:? Awake alert x3, no acute distress HEENT: sclera anicteric, moist mucus membranes Neck: supple Right anterior chest wall at site of hemodialysis catheter with no surrounding redness, swelling or tenderness. Lungs: Clear? To auscultation bilaterally no rhonchi few expiratory wheeze Heart: regular rate and rhythm, no murmurs Abd: soft, distended, nontender bowel sounds audible Back no CVA tenderness Ext: no edema Skin: warm/well-perfused Neuro: alert and oriented x3, no focal findings Psych: appropriate affect Objective Data Labs 08/09/22 05:09 08/14/22 00:22 Labs: Laboratory Results - last 24 hr 08/13/22 08/13/22 08/13/22 10:44 10:46 11:40 PT INR APTT Sodium 127 L Potassium 6.3 H* Plasma Potassium Chloride 93 L Carbon Dioxide 21 L Anion Gap 19 BUN 47 H Creatinine 6.65 H* Estim Creat Clear Calc 6.0 Estimated GFR 6 POC Glucose 243 H 256 H Random Glucose 74 Calcium 8.6 08/13/22 08/13/22 08/13/22 15:24 18:08 19:25 PT 9.5 L INR 0.8 L APTT 33.8 Sodium 125 L Potassium 6.9 H* Plasma Potassium Chloride 89 L Carbon Dioxide 22 Anion Gap 21 H BUN 50 H Creatinine 6.96 H* Estim Creat Clear Calc 5.7 Estimated GFR 6 POC Glucose 111 Random Glucose 194 H Calcium 8.2 L 08/13/22 08/13/22 08/13/22 19:25 19:25 20:28 PT INR APTT Sodium 125 L Potassium 6.5 H* Plasma Potassium 6.2 H* Chloride 90 L Carbon Dioxide 18 L Anion Gap 24 H BUN 52 H Creatinine 6.92 H* Estim Creat Clear Calc 5.7 Estimated GFR 6 POC Glucose 105 Random Glucose 82 Calcium 8.5 08/14/22 08/14/22 08/14/22 00:22 05:07 07:13 PT INR APTT Sodium 124 L Potassium 6.5 H* Plasma Potassium Chloride 88 L Carbon Dioxide 22 Anion Gap 21 H BUN 55 H Creatinine 7.24 H* Estim Creat Clear Calc 5.4 Estimated GFR 6 POC Glucose 160 H 152 H Random Glucose 190 H Calcium 8.0 L Microbiology Microbiology Results: Microbiology 08/12/22 05:11 Blood - Venous Blood Culture - Preliminary No growth after 48 hours. 08/12/22 05:14 Blood - Venous Blood Culture - Preliminary No growth after 48 hours. 08/11/22 14:43 Catheter Tip - Subclavian Catheter Tip Culture - Final Staphylococcus aureus Staphylococcus epidermidis 08/08/22 05:04 Blood - Venous Blood Culture - Final No growth after 5 days. 08/08/22 05:04 Blood - Venous Blood Culture - Final Staphylococcus aureus 08/07/22 15:32 Blood - Venous Blood Culture - Final Staphylococcus aureus 08/07/22 15:00 Blood - Venous Blood Culture - Final Staphylococcus aureus Procedures Date of Service Date of Service: 08/14/22 Assessment & Plan Assessment and plan (1) End stage chronic kidney disease: Status: Acute Plan 67 YR old woman with ESRD and Fever Gram stain positive for GPC Culture positive Agree with antibiotic coverage HD on [facility] to correct hyperkalemia. Awaiting insertion of dialysis catheter and start hemodialysis today. Time Spent With Patient Time: Total time managing care of this patient today ____ minutes. Progress Note: Quality Stroke Does the patient have a stroke diagnosis?: No
--- NOTE | 2022-08-14 11:28 | MHC.CM.PN ---
PER MD ROUNDS, PT WILL BE INPT UNTIL AT LEAST SUNDAY CURRENT DC PLAN IS HOME WITH RESUMPTION OF SERVICES CM FOLLOWING FOR CHANGING NEEDS
--- NOTE | 2022-08-14 11:35 | HO.PM.IMPN ---
Subjective Subjective Date of Service: 08/14/22 Interval History: This history was taken in Hebrew from the patient. K still high at 6.5, needs emergency dialysis, will get temporary HD catheter today denies any chest pain or dyspnea EKG without changes of hyperK Review of Systems Review of Systems: Yes all other systems are reviewed and are negative Physical Exam Vital Signs: Vital Signs: Last Vital Signs Temp 97.8 F 08/14/22 07:11 Pulse 61 08/14/22 08:55 Resp 18 08/14/22 07:11 BP 156/68 H 08/14/22 07:11 Pulse Ox 95 08/14/22 07:11 O2 Del Method Room Air 08/14/22 07:11 BMI result Body Mass Index 22.4 Gen: in no acute distress HEENT: sclera anicteric, moist mucus membranes Neck: supple Lungs: clear to auscultation bilaterally Heart: regular rate and rhythm, no murmurs Abd: soft, non-tender, non-distended Ext: no edema Skin: warm/well-perfused Neuro: alert and oriented x3, no focal findings Psych: appropriate affect Objective Data Active Medications Acetaminophen (Acetaminophen 325 Mg Tablet) 650 mg PO Q6H PRN PRN Reason: Pain, Mild (Pain Scale 1-3) Last Admin: 08/12/22 18:36 Dose: 650 mg Documented By: TIFFANY Albuterol Sulfate (Albuterol Sulfate 90 Mcg 8 Gm Inhaler) 2 puff INHALE Q4H PRN PRN Reason: wheezing Amlodipine Besylate (Amlodipine Besylate 10 Mg Tablet) 10 mg PO DAILY [facility]; Protocol Last Admin: 08/14/22 08:10 Dose: 10 mg Documented By: TIFFANY Aspirin (Aspirin Enteric Coated 81 Mg Tablet.) 81 mg PO DAILY [facility] Last Admin: 08/14/22 08:09 Dose: 81 mg Documented By: TIFFANY Buprenorphine/Naloxone (Buprenorphine/Naloxone 8/2 Mg Film) 2 film SUBLINGUAL DAILY [facility] Last Admin: 08/14/22 08:09 Dose: 2 film Documented By: TIFFANY Carvedilol (Carvedilol 6.25 Mg Tablet) 6.25 mg PO BID [facility]; Protocol Last Admin: 08/14/22 08:10 Dose: 6.25 mg Documented By: TIFFANY Clonidine HCl (Clonidine Hcl 0.2 Mg Tablet) 0.2 mg PO BID [facility]; Protocol Last Admin: 08/14/22 08:10 Dose: 0.2 mg Documented By: TIFFANY Diltiazem HCl (Diltiazem Hcl Cd 180 Mg Cap.Er.24h) 360 mg PO DAILY [facility]; Protocol Last Admin: 08/14/22 08:10 Dose: 360 mg Documented By: TIFFANY Diphenhydramine HCl (Diphenhydramine Hcl 25 Mg Capsule) 25 mg PO DAILY PRN PRN Reason: allergy symptoms Last Admin: 08/13/22 08:33 Dose: 25 mg Documented By: TIFFANY Docusate Sodium (Docusate Sodium 100 Mg Capsule) 100 mg PO BID [facility] Last Admin: 08/14/22 08:16 Dose: Not Given Documented By: TIFFANY Non-Admin Reason: NPO Fluticasone Propionate (Fluticasone Propionate 100 Mcg Blst.W.Dev) 1 puff INHALE RBID [facility] Last Admin: 08/14/22 08:53 Dose: 1 puff Documented By: CLARISSA Glucose (Glucose Gel 15 Gm Gel..Gram.) 15 gm PO Q15M PRN; Protocol PRN Reason: per Hypoglycemia Standing Ord. Heparin Sodium (Porcine) (Heparin Sodium,Porcine 5,000 Unit/Ml Vial) 5,000 unit SUBCUT Q8H [facility] Last Admin: 08/14/22 02:35 Dose: 5,000 unit Documented By: KIMI Hydralazine HCl (Hydralazine Hcl 50 Mg Tablet) 100 mg PO TID [facility]; Protocol Last Admin: 08/14/22 08:10 Dose: 100 mg Documented By: TIFFANY Cefazolin Sodium 2 gm/ Sodium (Chloride) 50 mls @ 100 mls/hr IV MoWeFr@2000 [facility] Last Infusion: 08/11/22 20:28 Dose: 0 mls/hr Documented By: CASTILEbenezer Dextrose (D10) 250 mls @ 750 mls/hr IV Q15M PRN; Protocol PRN Reason: per Hypoglycemia Standing Ord. Insulin Human Lispro (Insulin Lispro 100 Unit/Ml 3 Ml Vial) 0 unit SUBCUT QIDACHS [facility]; Protocol Last Admin: 08/14/22 08:15 Dose: Not Given Documented By: TIFFANY Non-Admin Reason: NPO Isosorbide Dinitrate (Isosorbide Dinitrate 10 Mg Tablet) 30 mg PO TID [facility]; Protocol Last Admin: 08/14/22 08:10 Dose: 30 mg Documented By: TIFFANY Lactulose (Lactulose 20 Gm/30 Ml Solution) 10 gm PO DAILY PRN PRN Reason: constipation Last Admin: 08/08/22 10:59 Dose: 10 gm Documented By: TONIE Lidocaine (Lidocaine 4 % Patch Adh..Patch) 1 patch TRANSDERMA DAILY [facility]; Protocol Last Admin: 08/14/22 08:09 Dose: 1 patch Documented By: TIFFANY Melatonin (Melatonin 3 Mg Tablet) 3 mg PO BEDTIME PRN PRN Reason: Insomnia Last Admin: 08/13/22 23:48 Dose: 3 mg Documented By: KIMI Nicotine (Nicotine 21 Mg Patch.Td24) 21 mg TRANSDERMA DAILY [facility] Last Admin: 08/14/22 08:09 Dose: 21 mg Documented By: TIFFANY Ondansetron HCl (Ondansetron Hcl 4 Mg/2 Ml Vial) 4 mg IVPUSH Q8H PRN PRN Reason: Nausea and Vomiting Last Admin: 08/14/22 06:43 Dose: 4 mg Documented By: KIMI Oxycodone HCl (Oxycodone Hcl Immed Release 5 Mg Tablet) 5 mg PO Q4H PRN PRN Reason: severe pain Last Admin: 08/13/22 23:48 Dose: 5 mg Documented By: KIMI Pharmacy Consult (Consult Rx Perform Med Rec) 1 each MISCELLANE ONCE PRN PRN Reason: Consult order Polyethylene Glycol (Polyethylene Glycol 3350 17 Gm Powd.Pack) 17 gm PO DAILY [facility] Last Admin: 08/14/22 08:16 Dose: Not Given Documented By: TIFFANY Non-Admin Reason: NPO Sodium Chloride (0.9 % Sodium Chloride Flush 3 Ml Syringe) 3 ml IVFLUSH QSHIFT [facility] Last Admin: 08/14/22 09:54 Dose: 3 ml Documented By: TIFFANY Sodium Zirconium Cyclosilicate (Sodium Zirconium Cyclosilicate 10 Gm Powd.Pack) 10 gm PO TID [facility] Stop: 08/14/22 21:01 Last Admin: 08/14/22 08:09 Dose: 10 gm Documented By: TIFFANY Labs 08/09/22 05:09 08/14/22 00:22 Labs: Laboratory Results - last 24 hr 08/13/22 08/13/22 08/13/22 11:40 15:24 18:08 PT INR APTT Plasma Potassium Anion Gap 19 21 H Estim Creat Clear Calc 6.0 5.7 Estimated GFR 6 6 POC Glucose 111 Random Glucose 74 194 H Calcium 8.6 8.2 L 08/13/22 08/13/22 08/13/22 19:25 19:25 19:25 PT 9.5 L INR 0.8 L APTT 33.8 Plasma Potassium 6.2 H* Anion Gap 24 H Estim Creat Clear Calc 5.7 Estimated GFR 6 POC Glucose Random Glucose 82 Calcium 8.5 08/13/22 08/14/22 08/14/22 20:28 00:22 05:07 PT INR APTT Plasma Potassium Anion Gap 21 H Estim Creat Clear Calc 5.4 Estimated GFR 6 POC Glucose 105 160 H Random Glucose 190 H Calcium 8.0 L 08/14/22 07:13 PT INR APTT Plasma Potassium Anion Gap Estim Creat Clear Calc Estimated GFR POC Glucose 152 H Random Glucose Calcium Microbiology Microbiology Results: Microbiology 08/12/22 05:11 Blood Culture - Preliminary Blood - Venous No growth after 48 hours. 08/12/22 05:14 Blood Culture - Preliminary Blood - Venous No growth after 48 hours. 08/11/22 14:43 Catheter Tip Culture - Final Catheter Tip - Subclavian Staphylococcus aureus Staphylococcus epidermidis 08/08/22 05:04 Blood Culture - Final Blood - Venous No growth after 5 days. 08/08/22 05:04 Blood Culture - Final Blood - Venous Staphylococcus aureus Assessment and Plan (1) Bacteremia: Status: Acute (2) Tachycardia: Status: Acute (3) Fever: Status: Acute (4) End stage chronic kidney disease: Status: Acute Plan d#8 67yo F with ESRD on HD MWF, HTN, chronic opiate dependence on Suboxone, DM, HFpEF. Admitted for fluid overload secondary to CHF and ESRD + multilobar pneumonia, found to have MSSA bacteremia with line infection # hyperK - no EKG changes. got 2 rounds of Ca gluconate, SZC 10g, IV insulin 10 units + D50, 10 mg albuterol neb. got 100 mg IV furosemide yesterday. on SZC 10g tid. emergent HD today after placement of temporary catheter # MSSA bacteremia/catheter-related bloodstream infection - BCx from 08/08 positive for MSSA at 76 hr. tunnel cath removed 08/11/22 and sent for culture, growing MSSA. redrew BCx for surveillance 08/12/22, negative at 48hr changed from vanco to cefazolin 08/10/22. will need 42d of cefazolin 2g p HD once BCx documented clear, hopefully start date can be 08/12/22 - TTE pending - as above, temporary HD catheter today due to hyperK. conversion to tunneled catheter once bloodstream documented clear for 72hr, earliest would be 08/15/22 # chronic hypoxic resp failure # COPD without acute exac - on home O2 1L via [place] - prn albuterol # ESRD - HD MWF was usual schedule # HTN - continue clonidine, carvedilol, amlodipine, bumetanide, diltiazem, isosorbide dinitrate, hydralazine # constipation - resolved, on maintenance stool softeners # OUD - Suboxone # tobacco abuse - NRT # VTE ppx: UFH # dispo: plan eventual home with VNA In my clinical judgment, the patient requires continued inpatient hospitalization for the following reasons: catheter replacement, persistent bacteremia, hyperK Time Spent With Patient Time: Total time managing care of this patient today __50__ minutes. Quality Stroke Does the patient have a stroke diagnosis?: No VTE Prior VTE?: No VTE Risk Level:: Medical - moderate - high VTE Device Contraindication: Treatment Not Indicated VTE Drug Contraindication: N/A - Med Ordered
[2022-08-14] MEDS: Lidocaine HCl 1 % MPF 5 ML VIAL 10 ML SUBCUT (12:08)
[2022-08-14] MEDS: Heparin Sodium,Porcine 1,000 UNIT/ML VIAL 2800 UNIT IV (12:15)
[2022-08-14] MEDS: oxyCODONE HCl Immed Release 5 MG TABLET PO ×2 (13:29→20:22)
[2022-08-14] MEDS: Acetaminophen 325 MG TABLET 650 MG PO (14:20)
[2022-08-14] MEDS: Calcium Carbonate 750 MG TAB.CHEW PO (15:45)
--- NOTE | 2022-08-14 20:09 | PC.NURSE ---
Phone call from 4th floor diaylisis Rm [id number] at 19:56, I went up with Tanja Ferreira, bring pt back to room 344, VSs checked. provide zofran for nausea, and food, all set by 20:12.
[2022-08-14] MEDS: diphenhydrAMINE HCL 25 MG CAPSULE PO (20:22)
[2022-08-14] MEDS: Docusate Sodium 100 MG CAPSULE PO (20:22)
[2022-08-14] MEDS: Insulin Lispro 100 UNIT/ML 3 ML VIAL SUBCUT (20:39)
[2022-08-14 20:51] LABS: Glucose, Whole Blood 190 mg/dL (60-115)
[2022-08-14 21:09] LABS: Anion Gap 20 (12-20); Blood Urea Nitrogen 16 mg/dL (9-16); Calcium 8.7 mg/dL (8.4-10.2); Carbon Dioxide 15 mmol/L (22-29); Chloride 97 mmol/L (96-108); Creatinine Clr Calc Pharmacy 12.5; Estimated Glomerular Filt Rate 15; Glucose Random 167 mg/dL (60-115); Potassium 4.1 mmol/L (3.3-5.1); Sodium 128 mmol/L (135-145)
[2022-08-15] MEDS: oxyCODONE HCl Immed Release 5 MG TABLET PO (03:13)
[2022-08-15] MEDS: Heparin Sodium,Porcine 5,000 UNIT/ML VIAL 5000 UNIT SUBCUT ×3 (03:13→18:36)
[2022-08-15 03:23] VITALS: BP 147/80; PULSE 79; RESP 18; TEMP 36.5; O2SAT 99
--- NOTE | 2022-08-15 04:56 | PC.NURSE ---
pt HD nurse Marissa called this morning asking pt WBC and new catheter. I share with her WBC 8.4, and temporary cat. and plan of care for the new tunnel port insertion.
--- NOTE | 2022-08-15 07:00 | CA_ITS ---
Transthoracic Echocardiogram Patient (Last, First, Middle): Cruz Muller M Gender: Female Date of : 1955 Age: 67 Procedure Date: 08/15/2022 Procedure Type: Transthoracic Echocardiogram Location: S3W Height: 152. cm Weight: 51.71 kg BSA: 1.47 m2 Heart Rate: bpm BP: 156 / 68 mmHg Educational Consultant: FABIOLA Referring MD: Florence Mesa MD Symptoms: persistent MSSA bacteremia Study Quality: Adequate ECG Rhythm: Sinus Conclusions: - The left ventricular systolic function is normal. The visually estimated ejection fraction is between 55-60%. - No obvious valvular pathology seen on this study. Findings Left Ventricle Normal left ventricular cavity size. The left ventricular systolic function is normal. The visually estimated ejection fraction is between 55-60%. There is no evidence of regional wall motion abnormalities. E/E prime ratio is between 8 and 15 consistent with indeterminate filling pressures. Evidence suggests grade I (mild) diastolic dysfunction. Moderate to severe concentric left ventricular hypertrophy. Right Ventricle Normal right ventricular cavity size. There is mildly decreased right ventricular systolic function. Atria The left atrium is mildly dilated. The right atrium is normal in size. Aortic Valve There is a normal trileaflet aortic valve. There is no aortic valve stenosis. There is no aortic valve regurgitation. Mitral Valve The mitral valve appears normal. There is trace mitral valve regurgitation. There is no mitral valve stenosis. Pulmonic Valve The pulmonic valve is likely normal. Tricuspid Valve Normal tricuspid valve structure. There is trace tricuspid valve regurgitation. There is no evidence of pulmonary hypertension. Great Vessels The asc aorta is normal in size. Venous The inferior vena cava is normal in size and collapses greater than 50% with inspiration. Pericardium/Pleural There is a trivial pericardial effusion. Recommendations, Care & Conclusions No obvious valvular pathology seen on this study. Measurements 2D Linear Measurements IVSd: 1.33 0.6-0.9/0.6-1.0 cm LVIDd: 4.15 3.9-5.3/4.2-5.9 cm LVIDd Index: 2.82 2.4-3.2/2.2-3.1 cm/m2 LVIDs: 2.88 2.0-3.6 cm LVPWd: 1.57 0.7-1.1 cm LA Diam: 3.40 2.7-3.8/3.0-4.0 cm LAIDs Index: 2.31 1.5-2.3 cm/m2 LV Mass: 290.09 67-162/88-224 g LV Mass Index: 197.34 43-95/49-115 g/m2 LVOT Diam: 1.80 3.0+(-)1.3 cm 2D Systolic Function EF 4C: 51.90 >55% EF 2C: 45.30 >55% EF BiP: 49.20 >55% Mitral Valve MV Pk E: 0.55 MV PK A: 0.78 MV Decel Time: 287.00 E/A: 0.70 E'Lateral: 5.98 E'Medial: 3.26 E/E' Med: 16.80 E/E' Lat: 9.20 PHT: 84.00 MVA PHT: 2.62 Decel [place]: 1.91 Aortic Valve AoV Pk Diego: 1.82 AoV Mn Diego: 1.12 AoV VTI: 0.31 AoV Pk Grad: 13.00 Aov Mn Grad: 6.00 HUNTER Cont.VTI: 1.70 LVOT LVOT Pk Diego: 1.26 LVOT Mn Diego: 0.84 LVOT VTI: 0.21 LVOT Pk Grad: 6.00 LVOT Mn Grad: 3.00 LVOT Diam: 1.80 LVOT Area: 2.54 Diastolic Function MV Pk E: 0.55 MV Pk A: 0.78 E/A: 0.70 E'Medial: 3.26 E/E' Med: 16.80 E' Laterial: 5.98 E/E' Lat: 9.20 Right Ventricle TAPSE (mm): 15.90 Tricuspid Valve TR Pk Diego: 1.62 TR Pk Grad: 10.00 RA Press: 3.00 RVSP: 13.00 Great Vessels Aorta Sinus of Valsalva: 2.80 2.0-3.5 cm Ao Asc: 3.20 2.1-3.4 cm Pulmonary Valve PV Pk Diego: 1.16 Peak PV Grad: 5.00 Updated in Other Vendor System with Status of Final Murphy Mazariegos MD electronically signed on 08/15/2022 11:36:44 AM with status of Final
[2022-08-15 07:04] VITALS: BP 163/76; PULSE 66; RESP 18; TEMP 36.7; O2SAT 96
[2022-08-15 07:35] LABS: Glucose, Whole Blood 166 mg/dL (60-115)
[2022-08-15] MEDS: amLODIPine Besylate 10 MG TABLET PO (08:03)
[2022-08-15] MEDS: cloNIDine HCL 0.2 MG TABLET PO ×2 (08:03→20:25)
[2022-08-15] MEDS: Buprenorphine/Naloxone 8/2 mg FILM 2 FILM SUBLINGUAL (08:03)
[2022-08-15] MEDS: hydrALAZINE HCl 50 MG TABLET 100 MG PO ×3 (08:03→20:26)
[2022-08-15] MEDS: Insulin Lispro 100 UNIT/ML 3 ML VIAL SUBCUT (08:04)
[2022-08-15] MEDS: Aspirin Enteric Coated 81 MG TABLET.DR PO (08:04)
[2022-08-15] MEDS: Nicotine 21 MG PATCH.TD24 TRANSDERMA (08:04)
[2022-08-15] MEDS: Lidocaine 4 % Patch ADH..PATCH 1 PATCH TRANSDERMA (08:04)
[2022-08-15] MEDS: polyethylene glycoL 3350 17 GM POWD.PACK PO (08:04)
[2022-08-15] MEDS: dilTIAZem HCL CD 180 MG CAP.ER.24H 360 MG PO (08:04)
[2022-08-15] MEDS: carvediloL 6.25 MG TABLET PO ×2 (08:04→20:25)
[2022-08-15] MEDS: 0.9 % Sodium Chloride Flush 3 ML SYRINGE IVFLUSH ×3 (08:05→20:24)
[2022-08-15] MEDS: Isosorbide Dinitrate 10 MG TABLET 30 MG PO ×3 (08:09→20:25)
[2022-08-15] MEDS: Fluticasone Propionate 100 MCG BLST.W.DEV 1 PUFF INHALE ×2 (08:53→20:27)
[2022-08-15 08:54] VITALS: PULSE 71; RESP 20; O2SAT 95
--- NOTE | 2022-08-15 09:02 | P.PNNP_ITS ---
Subjective Subjective Date of Service: 08/15/22 Interval history: Events noted Had a temporary dialysis catheter placed yesterday and underwent dialysis due to hyperkalemia. Physical Exam Vital Signs: Vital Signs: Last Vital Signs Temp 98.1 F 08/15/22 07:04 Pulse 71 08/15/22 08:54 Resp 20 08/15/22 08:54 BP 163/76 H 08/15/22 07:04 Pulse Ox 96 08/15/22 07:04 O2 Del Method Room Air 08/15/22 07:04 BMI result Body Mass Index 22.4 Const: Other: Gen:? Awake alert x3, no acute distress HEENT: sclera anicteric, moist mucus membranes Neck: supple Right anterior chest wall at site of hemodialysis catheter with no surrounding r edness, swelling or tenderness. Lungs: Clear? To auscultation bilaterally no rhonchi few expiratory wheeze Heart: regular rate and rhythm, no murmurs Abd: soft, distended, nontender bowel sounds audible Back no CVA tenderness Ext: no edema Skin: warm/well-perfused Neuro: alert and oriented x3, no focal findings Psych: appropriate affect Objective Data Labs 08/09/22 05:09 08/14/22 20:14 Labs: Laboratory Results - last 24 hr 08/14/22 08/14/22 08/15/22 20:14 20:30 07:06 Sodium 128 L Potassium 4.1 D Chloride 97 Carbon Dioxide 15 L Anion Gap 20 BUN 16 Creatinine 3.16 H Estim Creat Clear Calc 12.5 Estimated GFR 15 POC Glucose 190 H 166 H Random Glucose 167 H Calcium 8.7 D Microbiology Microbiology Results: Microbiology 08/12/22 05:11 Blood - Venous Blood Culture - Preliminary No growth after 48 hours. 08/12/22 05:14 Blood - Venous Blood Culture - Preliminary No growth after 48 hours. 08/11/22 14:43 Catheter Tip - Subclavian Catheter Tip Culture - Final Staphylococcus aureus Staphylococcus epidermidis 08/08/22 05:04 Blood - Venous Blood Culture - Final No growth after 5 days. 08/08/22 05:04 Blood - Venous Blood Culture - Final Staphylococcus aureus 08/07/22 15:32 Blood - Venous Blood Culture - Final Staphylococcus aureus 08/07/22 15:00 Blood - Venous Blood Culture - Final Staphylococcus aureus Procedures Date of Service Date of Service: 08/15/22 Assessment & Plan Assessment and plan (1) End stage chronic kidney disease: Status: Acute Plan 67 YR old woman with ESRD and Fever Gram stain positive for GPC Currently on antibiotic coverage. Next item repeat cultures is negative HD on MWF\ Need to convert temporary catheter to a PermCath. Continue dialysis on Sunday and watch potassium. Procrit for anemia per protocol. Time Spent With Patient Time: Total time managing care of this patient today ____ minutes. Progress Note: Quality Stroke Does the patient have a stroke diagnosis?: No
[2022-08-15] MEDS: Docusate Sodium 100 MG CAPSULE PO ×2 (10:15→20:24)
[2022-08-15 11:32] LABS: Glucose, Whole Blood 132 mg/dL (60-115)
--- NOTE | 2022-08-15 11:36 | HO.PM.IMPN ---
Subjective Subjective Date of Service: 08/15/22 Interval History: History obtained via sign language interpreter, patient offers no acute complaints tolerating diet denies nausea, no vomiting, no abdominal pain receiving hemodialysis through temporary hemodialysis catheter Review of Systems Review of Systems: Yes all other systems are reviewed and are negative Physical Exam Vital Signs: Vital Signs: Last Vital Signs Temp 98.1 F 08/15/22 07:04 Pulse 71 08/15/22 08:54 Resp 20 08/15/22 08:54 BP 163/76 H 08/15/22 07:04 Pulse Ox 96 08/15/22 07:04 O2 Del Method Room Air 08/15/22 07:04 BMI result Body Mass Index 22.4 Const: Other: Gen: Awake alert x3, in no acute distress HEENT: sclera anicteric, moist mucus membranes Neck: supple Lungs: clear to auscultation bilaterally Heart: regular rate and rhythm, no murmurs Abd: soft, non-tender, non-distended Ext: no edema Skin: warm/well-perfused Neuro: alert and oriented x3, no focal findings Psych: appropriate affect Objective Data Active Medications Acetaminophen (Acetaminophen 325 Mg Tablet) 650 mg PO Q6H PRN PRN Reason: Pain, Mild (Pain Scale 1-3) Last Admin: 08/14/22 14:20 Dose: 650 mg Documented By: TIFFANY Albuterol Sulfate (Albuterol Sulfate 90 Mcg 8 Gm Inhaler) 2 puff INHALE Q4H PRN PRN Reason: wheezing Amlodipine Besylate (Amlodipine Besylate 10 Mg Tablet) 10 mg PO DAILY [facility]; Protocol Last Admin: 08/15/22 08:03 Dose: 10 mg Documented By: DENIA Aspirin (Aspirin Enteric Coated 81 Mg Tablet.Dr) 81 mg PO DAILY [facility] Last Admin: 08/15/22 08:04 Dose: 81 mg Documented By: DENIA Buprenorphine/Naloxone (Buprenorphine/Naloxone 8/2 Mg Film) 2 film SUBLINGUAL DAILY [facility] Last Admin: 08/15/22 08:03 Dose: 2 film Documented By: DENIA Calcium Carbonate (Calcium Carbonate 750 Mg Tab.Chew) 750 mg PO Q4H PRN PRN Reason: heartburn Last Admin: 08/14/22 15:45 Dose: 750 mg Documented By: TIFFANY Carvedilol (Carvedilol 6.25 Mg Tablet) 6.25 mg PO BID [facility]; Protocol Last Admin: 08/15/22 08:04 Dose: 6.25 mg Documented By: DENIA Clonidine HCl (Clonidine Hcl 0.2 Mg Tablet) 0.2 mg PO BID [facility]; Protocol Last Admin: 08/15/22 08:03 Dose: 0.2 mg Documented By: DENIA Diltiazem HCl (Diltiazem Hcl Cd 180 Mg Cap.Er.24h) 360 mg PO DAILY [facility]; Protocol Last Admin: 08/15/22 08:04 Dose: 360 mg Documented By: DENIA Diphenhydramine HCl (Diphenhydramine Hcl 25 Mg Capsule) 25 mg PO DAILY PRN PRN Reason: allergy symptoms Last Admin: 08/14/22 20:22 Dose: 25 mg Documented By: KIMI Docusate Sodium (Docusate Sodium 100 Mg Capsule) 100 mg PO BID [facility] Last Admin: 08/15/22 10:15 Dose: 100 mg Documented By: DENIA Fluticasone Propionate (Fluticasone Propionate 100 Mcg Blst.W.Dev) 1 puff INHALE RBID [facility] Last Admin: 08/15/22 08:53 Dose: 1 puff Documented By: CLARISSA Glucose (Glucose Gel 15 Gm Gel..Gram.) 15 gm PO Q15M PRN; Protocol PRN Reason: per Hypoglycemia Standing Ord. Heparin Sodium (Porcine) (Heparin Sodium,Porcine 5,000 Unit/Ml Vial) 5,000 unit SUBCUT Q8H [facility] Last Admin: 08/15/22 03:13 Dose: 5,000 unit Documented By: KIMI Hydralazine HCl (Hydralazine Hcl 50 Mg Tablet) 100 mg PO TID [facility]; Protocol Last Admin: 08/15/22 08:03 Dose: 100 mg Documented By: DENIA Cefazolin Sodium 2 gm/ Sodium (Chloride) 50 mls @ 100 mls/hr IV [id number]@2000 [facility] Last Infusion: 08/14/22 21:00 Dose: 0 mls/hr Documented By: KIMI Dextrose (D10) 250 mls @ 750 mls/hr IV Q15M PRN; Protocol PRN Reason: per Hypoglycemia Standing Ord. Insulin Human Lispro (Insulin Lispro 100 Unit/Ml 3 Ml Vial) 0 unit SUBCUT QIDACHS [facility]; Protocol Last Admin: 08/15/22 08:04 Dose: 2 unit Documented By: DENIA Isosorbide Dinitrate (Isosorbide Dinitrate 10 Mg Tablet) 30 mg PO TID [facility]; Protocol Last Admin: 08/15/22 08:09 Dose: 30 mg Documented By: DENIA Lactulose (Lactulose 20 Gm/30 Ml Solution) 10 gm PO DAILY PRN PRN Reason: constipation Last Admin: 08/08/22 10:59 Dose: 10 gm Documented By: TONIE Lidocaine (Lidocaine 4 % Patch Adh..Patch) 1 patch TRANSDERMA DAILY [facility]; Protocol Last Admin: 08/15/22 08:04 Dose: 1 patch Documented By: DENIA Melatonin (Melatonin 3 Mg Tablet) 3 mg PO BEDTIME PRN PRN Reason: Insomnia Last Admin: 08/13/22 23:48 Dose: 3 mg Documented By: KIMI Nicotine (Nicotine 21 Mg Patch.Td24) 21 mg TRANSDERMA DAILY [facility] Last Admin: 08/15/22 08:04 Dose: 21 mg Documented By: DENIA Ondansetron HCl (Ondansetron Hcl 4 Mg/2 Ml Vial) 4 mg IVPUSH Q8H PRN PRN Reason: Nausea and Vomiting Last Admin: 08/14/22 20:38 Dose: 4 mg Documented By: KIMI Oxycodone HCl (Oxycodone Hcl Immed Release 5 Mg Tablet) 5 mg PO Q4H PRN PRN Reason: severe pain Last Admin: 08/15/22 03:13 Dose: 5 mg Documented By: KIMI Pharmacy Consult (Consult Rx Perform Med Rec) 1 each MISCELLANE ONCE PRN PRN Reason: Consult order Polyethylene Glycol (Polyethylene Glycol 3350 17 Gm Powd.Pack) 17 gm PO DAILY [facility] Last Admin: 08/15/22 08:04 Dose: 17 gm Documented By: DENIA Sodium Chloride (0.9 % Sodium Chloride Flush 3 Ml Syringe) 3 ml IVFLUSH QSHIFT [facility] Last Admin: 08/15/22 08:05 Dose: 3 ml Documented By: DENIA Labs 08/09/22 05:09 08/14/22 20:14 Labs: Laboratory Results - last 24 hr 08/14/22 08/14/22 08/15/22 20:14 20:30 07:06 Anion Gap 20 Estim Creat Clear Calc 12.5 Estimated GFR 15 POC Glucose 190 H 166 H Random Glucose 167 H Calcium 8.7 D 08/15/22 11:19 Anion Gap Estim Creat Clear Calc Estimated GFR POC Glucose 132 H Random Glucose Calcium Microbiology Microbiology Results: Microbiology 08/12/22 05:11 Blood Culture - Preliminary Blood - Venous No growth after 48 hours. 08/12/22 05:14 Blood Culture - Preliminary Blood - Venous No growth after 48 hours. Assessment and Plan (1) Bacteremia: Status: Acute (2) Tachycardia: Status: Acute (3) Fever: Status: Acute (4) End stage chronic kidney disease: Status: Acute Plan d#8 67yo F with ESRD on HD MWF, HTN, chronic opiate dependence on Suboxone, DM, HFpEF. Admitted for fluid overload secondary to CHF and ESRD + multilobar pneumonia, found to have MSSA bacteremia with line infection # hyperK Resolved, no EKG changes. s/p 2 rounds of Ca gluconate, SZC 10g, IV insulin 10 units + D50, 10 mg albuterol neb.and 100 mg IV furosemide, continue HD via temporary catheter PermCath ordered to be placed on # MSSA bacteremia/catheter-related bloodstream infection - BCx from 08/08 positive for MSSA at 76 hr. tunnel cath removed 08/11/22 and sent for culture, growing MSSA. redrew BCx for surveillance 08/12/22, negative at 48hr changed from vanco to cefazolin 08/10/22. will need 42d of cefazolin 2g p HD once BCx documented clear, Echo report pending # chronic hypoxic resp failure/ COPD without acute exac - on home O2 1L via NC, prn albuterol # ESRD - HD MWF usual schedule # HTN - continue clonidine, carvedilol, amlodipine, bumetanide, diltiazem, isosorbide dinitrate, hydralazine # constipation - resolved, on maintenance stool softeners # OUD - Suboxone # tobacco abuse - NRT # VTE ppx: UFH # dispo: plan eventual home with VNA In my clinical judgment, the patient requires continued inpatient hospitalization for the following reasons: catheter replacement, persistent bacteremia Time Spent With Patient Time: Total time managing care of this patient today ____ minutes. Quality Stroke Does the patient have a stroke diagnosis?: No VTE Prior VTE?: No VTE Risk Level:: Medical - moderate - high VTE Device Contraindication: Treatment Not Indicated VTE Drug Contraindication: N/A - Med Ordered
[2022-08-15 15:37] VITALS: BP 149/70; PULSE 63; RESP 18; TEMP 36.2; O2SAT 97
[2022-08-15 16:33] LABS: Glucose, Whole Blood 120 mg/dL (60-115)
[2022-08-15 19:53] VITALS: BP 178/80; PULSE 71; RESP 20; TEMP 35.9; O2SAT 97
[2022-08-15] MEDS: ondansetron HCL 4 MG/2 ML VIAL IVPUSH (20:24)
[2022-08-15] MEDS: diphenhydrAMINE HCL 25 MG CAPSULE PO (20:25)
[2022-08-15 20:27] VITALS: PULSE 71; RESP 20; O2SAT 94
[2022-08-15 20:47] LABS: Glucose, Whole Blood 143 mg/dL (60-115)
[2022-08-16] MEDS: Heparin Sodium,Porcine 5,000 UNIT/ML VIAL 5000 UNIT SUBCUT ×3 (03:23→17:56)
[2022-08-16 03:28] VITALS: BP 136/64; PULSE 53; RESP 18; TEMP 36.4; O2SAT 96
[2022-08-16 07:39] LABS: Glucose, Whole Blood 153 mg/dL (60-115)
[2022-08-16 07:44] VITALS: BP 168/79; PULSE 62; RESP 18; TEMP 36.6; O2SAT 97
[2022-08-16] MEDS: cloNIDine HCL 0.2 MG TABLET PO ×2 (07:59→20:39)
[2022-08-16] MEDS: Nicotine 21 MG PATCH.TD24 TRANSDERMA (07:59)
[2022-08-16] MEDS: Lidocaine 4 % Patch ADH..PATCH 1 PATCH TRANSDERMA (07:59)
[2022-08-16] MEDS: carvediloL 6.25 MG TABLET PO ×2 (07:59→20:39)
[2022-08-16] MEDS: Docusate Sodium 100 MG CAPSULE PO ×2 (08:00→20:39)
[2022-08-16] MEDS: dilTIAZem HCL CD 180 MG CAP.ER.24H 360 MG PO (08:00)
[2022-08-16] MEDS: amLODIPine Besylate 10 MG TABLET PO (08:00)
[2022-08-16] MEDS: Insulin Lispro 100 UNIT/ML 3 ML VIAL SUBCUT ×4 (08:01→20:39)
[2022-08-16] MEDS: Buprenorphine/Naloxone 8/2 mg FILM 2 FILM SUBLINGUAL (08:01)
[2022-08-16] MEDS: hydrALAZINE HCl 50 MG TABLET 100 MG PO ×3 (08:01→20:38)
[2022-08-16] MEDS: Isosorbide Dinitrate 10 MG TABLET 30 MG PO ×3 (08:01→20:39)
[2022-08-16] MEDS: polyethylene glycoL 3350 17 GM POWD.PACK PO (08:02)
[2022-08-16] MEDS: ondansetron HCL 4 MG/2 ML VIAL IVPUSH (08:17)
[2022-08-16] MEDS: Fluticasone Propionate 100 MCG BLST.W.DEV 1 PUFF INHALE ×2 (08:24→20:00)
[2022-08-16 08:25] VITALS: PULSE 58; RESP 20; O2SAT 94
--- NOTE | 2022-08-16 09:12 | PM.PNNEP ---
Subjective Subjective Date of Service: 08/16/22 Interval history: Events noted. Doing okay today. Waiting for dialysis. Physical Exam Vital Signs: Vital Signs: Last Vital Signs Temp 97.9 F 08/16/22 07:44 Pulse 58 08/16/22 08:25 Resp 20 08/16/22 08:25 BP 168/79 H 08/16/22 07:44 Pulse Ox 97 08/16/22 07:44 O2 Del Method Room Air 08/16/22 07:44 BMI result Body Mass Index 22.4 Const: Other: Gen:? Awake alert x3, no acute distress HEENT: sclera anicteric, moist mucus membranes Neck: supple Right anterior chest wall at site of hemodialysis catheter with no surrounding redness, swelling or tenderness. Lungs: Clear? To auscultation bilaterally no rhonchi few expiratory wheeze Heart: regular rate and rhythm, no murmurs Abd: soft, distended, nontender bowel sounds audible Back no CVA tenderness Ext: no edema Skin: warm/well-perfused Neuro: alert and oriented x3, no focal findings Psych: appropriate affect Objective Data Labs 08/09/22 05:09 08/14/22 20:14 Labs: Laboratory Results - last 24 hr 08/15/22 08/15/22 08/15/22 11:19 16:29 20:43 POC Glucose 132 H 120 H 143 H 08/16/22 07:25 POC Glucose 153 H Microbiology Microbiology Results: Microbiology 08/12/22 05:11 Blood - Venous Blood Culture - Preliminary No growth after 48 hours. 08/12/22 05:14 Blood - Venous Blood Culture - Preliminary No growth after 48 hours. 08/11/22 14:43 Catheter Tip - Subclavian Catheter Tip Culture - Final Staphylococcus aureus Staphylococcus epidermidis 08/08/22 05:04 Blood - Venous Blood Culture - Final No growth after 5 days. 08/08/22 05:04 Blood - Venous Blood Culture - Final Staphylococcus aureus 08/07/22 15:32 Blood - Venous Blood Culture - Final Staphylococcus aureus 08/07/22 15:00 Blood - Venous Blood Culture - Final Staphylococcus aureus Procedures Date of Service Date of Service: 08/16/22 Assessment & Plan Assessment and plan (1) End stage chronic kidney disease: Status: Acute Plan 67 YR old woman with ESRD and Fever Gram stain positive for GPC Currently on antibiotic coverage. repeat cultures is negative HD on MWF\ Need to convert temporary catheter to a PermCath. Continue dialysis on Sunday and watch potassium. Procrit for anemia per protocol. Await PermCath insertion Time Spent With Patient Time: Total time managing care of this patient today ____ minutes. Progress Note: Quality Stroke Does the patient have a stroke diagnosis?: No
--- NOTE | 2022-08-16 09:13 | MHC.CLN ---
NUTRITION MODIFIED DIET PER DIALYSIS PARAMETERS: 2 GRAM SODIUM, LOW POTASSIUM, LOW PHOSPHORUS.
[2022-08-16] MEDS: 0.9 % Sodium Chloride Flush 3 ML SYRINGE IVFLUSH ×3 (10:20→20:40)
[2022-08-16] MEDS: oxyCODONE HCl Immed Release 5 MG TABLET PO (10:39)
--- NOTE | 2022-08-16 11:33 | P.PNIM_ITS ---
Subjective Subjective Date of Service: 08/16/22 Interval History: Being followed for MSSA bacteremia, offers no acute complaints, no nausea, no vomiting tolerating diet, no diarrhea is anxious about PermCath placement scheduled for tomorrow morning, no fevers no chills no other acute issues.. Review of Systems Review of Systems: Yes all other systems are reviewed and are negative Physical Exam Vital Signs: Vital Signs: Last Vital Signs Temp 97.9 F 08/16/22 07:44 Pulse 58 08/16/22 08:25 Resp 20 08/16/22 08:25 BP 168/79 H 08/16/22 07:44 Pulse Ox 97 08/16/22 07:44 O2 Del Method Room Air 08/16/22 07:44 BMI result Body Mass Index 22.4 Const: Other: Gen:? Awake alert x3, in no acute distress HEENT: sclera anicteric, moist mucus membranes Neck: supple,no jvd Lungs: clear to auscultation , no wheeze ,no crackles Heart: regular rate and rhythm, no murmurs Abd: soft, non-tender, non-distended Ext: no edema Skin: warm/well-perfused Neuro: alert and oriented x3, no focal findings Psych: appropriate affect Objective Data Active Medications Acetaminophen (Acetaminophen 325 Mg Tablet) 650 mg PO Q6H PRN PRN Reason: Pain, Mild (Pain Scale 1-3) Last Admin: 08/14/22 14:20 Dose: 650 mg Documented By: TIFFANY Albuterol Sulfate (Albuterol Sulfate 90 Mcg 8 Gm Inhaler) 2 puff INHALE Q4H PRN PRN Reason: wheezing Amlodipine Besylate (Amlodipine Besylate 10 Mg Tablet) 10 mg PO DAILY [facility]; Protocol Last Admin: 08/16/22 08:00 Dose: 10 mg Documented By: BETTY Buprenorphine/Naloxone (Buprenorphine/Naloxone 8/2 Mg Film) 2 film SUBLINGUAL DAILY [facility] Last Admin: 08/16/22 08:01 Dose: 2 film Documented By: BETTY Calcium Carbonate (Calcium Carbonate 750 Mg Tab.Chew) 750 mg PO Q4H PRN PRN Reason: heartburn Last Admin: 08/14/22 15:45 Dose: 750 mg Documented By: TIFFANY Carvedilol (Carvedilol 6.25 Mg Tablet) 6.25 mg PO BID [facility]; Protocol Last Admin: 08/16/22 07:59 Dose: 6.25 mg Documented By: BETTY Clonidine HCl (Clonidine Hcl 0.2 Mg Tablet) 0.2 mg PO BID [facility]; Protocol Last Admin: 08/16/22 07:59 Dose: 0.2 mg Documented By: BETTY Diltiazem HCl (Diltiazem Hcl Cd 180 Mg Cap.Er.24h) 360 mg PO DAILY [facility]; Protocol Last Admin: 08/16/22 08:00 Dose: 360 mg Documented By: BETTY Diphenhydramine HCl (Diphenhydramine Hcl 25 Mg Capsule) 25 mg PO DAILY PRN PRN Reason: allergy symptoms Last Admin: 08/15/22 20:25 Dose: 25 mg Documented By: CASTILM Docusate Sodium (Docusate Sodium 100 Mg Capsule) 100 mg PO BID [facility] Last Admin: 08/16/22 08:00 Dose: 100 mg Documented By: BETTY Fluticasone Propionate (Fluticasone Propionate 100 Mcg Blst.W.Dev) 1 puff INHALE RBID [facility] Last Admin: 08/16/22 08:24 Dose: 1 puff Documented By: CLARISSA Glucose (Glucose Gel 15 Gm Gel..Gram.) 15 gm PO Q15M PRN; Protocol PRN Reason: per Hypoglycemia Standing Ord. Heparin Sodium (Porcine) (Heparin Sodium,Porcine 5,000 Unit/Ml Vial) 5,000 unit SUBCUT Q8H [facility] Last Admin: 08/16/22 10:39 Dose: 5,000 unit Documented By: MATILDE Hydralazine HCl (Hydralazine Hcl 50 Mg Tablet) 100 mg PO TID [facility]; Protocol Last Admin: 08/16/22 08:01 Dose: 100 mg Documented By: BETTY Cefazolin Sodium 2 gm/ Sodium (Chloride) 50 mls @ 100 mls/hr IV MoWeFr@2000 [facility] Last Infusion: 08/14/22 21:00 Dose: 0 mls/hr Documented By: KIMI Dextrose (D10) 250 mls @ 750 mls/hr IV Q15M PRN; Protocol PRN Reason: per Hypoglycemia Standing Ord. Insulin Human Lispro (Insulin Lispro 100 Unit/Ml 3 Ml Vial) 0 unit SUBCUT QIDACHS [facility]; Protocol Last Admin: 08/16/22 08:01 Dose: 2 unit Documented By: BETTY Isosorbide Dinitrate (Isosorbide Dinitrate 10 Mg Tablet) 30 mg PO TID [facility]; Protocol Last Admin: 08/16/22 08:01 Dose: 30 mg Documented By: BETTY Lactulose (Lactulose 20 Gm/30 Ml Solution) 10 gm PO DAILY PRN PRN Reason: constipation Last Admin: 08/08/22 10:59 Dose: 10 gm Documented By: TONIE Lidocaine (Lidocaine 4 % Patch Adh..Patch) 1 patch TRANSDERMA DAILY [facility]; Protocol Last Admin: 08/16/22 07:59 Dose: 1 patch Documented By: BETTY Melatonin (Melatonin 3 Mg Tablet) 3 mg PO BEDTIME PRN PRN Reason: Insomnia Last Admin: 08/13/22 23:48 Dose: 3 mg Documented By: KIMI Nicotine (Nicotine 21 Mg Patch.Td24) 21 mg TRANSDERMA DAILY [facility] Last Admin: 08/16/22 07:59 Dose: 21 mg Documented By: BETTY Ondansetron HCl (Ondansetron Hcl 4 Mg/2 Ml Vial) 4 mg IVPUSH Q8H PRN PRN Reason: Nausea and Vomiting Last Admin: 08/16/22 08:17 Dose: 4 mg Documented By: BETTY Oxycodone HCl (Oxycodone Hcl Immed Release 5 Mg Tablet) 5 mg PO Q4H PRN PRN Reason: severe pain Last Admin: 08/16/22 10:39 Dose: 5 mg Documented By: MATILDE Pharmacy Consult (Consult Rx Perform Med Rec) 1 each MISCELLANE ONCE PRN PRN Reason: Consult order Polyethylene Glycol (Polyethylene Glycol 3350 17 Gm Powd.Pack) 17 gm PO DAILY [facility] Last Admin: 08/16/22 08:02 Dose: 17 gm Documented By: BETTY Sodium Chloride (0.9 % Sodium Chloride Flush 3 Ml Syringe) 3 ml IVFLUSH QSHIFT [facility] Last Admin: 08/16/22 10:20 Dose: 3 ml Documented By: BETTY Labs 08/09/22 05:09 08/14/22 20:14 Labs: Laboratory Results - last 24 hr 08/15/22 08/15/22 08/16/22 16:29 20:43 07:25 POC Glucose 120 H 143 H 153 H Assessment and Plan (1) Bacteremia: Status: Acute (2) Tachycardia: Status: Acute (3) Fever: Status: Acute (4) End stage chronic kidney disease: Status: Acute Plan d#8 67yo F with ESRD on HD MWF, HTN, chronic opiate dependence on Suboxone, DM, HFpE F. Admitted for fluid overload secondary to CHF and ESRD + multilobar pneumonia, found to have MSSA bacteremia with line infection # hyperK Resolved, no EKG changes. s/p 2 rounds of Ca gluconate, SZC 10g, IV insulin 10 units + D50, 10 mg albuterol neb.and 100 mg IV furosemide, continue HD via temporary catheter PermCath ordered to be placed on # MSSA bacteremia/catheter-related bloodstream infection No recurrent fevers, no chills - BCx from 08/08 positive for MSSA at 76 hr. tunnel cath removed 08/11/22 and sent for culture, growing MSSA. redrew BCx for surveillance 08/12/22, negative at 48hr changed from vanco to cefazolin 08/10/22. will need 42d of cefazolin 2g p HD Echo showed no obvious valvular pathology, EF 55-60%, moderate to severe concentric left ventricular hypertrophy no evidence of wall motion abnormality and mild grade 1 diastolic dysfunction # chronic hypoxic resp failure/ COPD without acute exac - on home O2 1L via [place], prn albuterol # ESRD - HD MWF usual schedule, PermCath scheduled for tomorrow, aspirin held keep her NPO # HTN - suboptimal blood pressure control on multiple antihypertensives, continue clonidine, carvedilol, amlodipine, bumetanide, diltiazem, isosorbide dinitrate, hydralazine, discuss further med medication adjustment with Neurology # constipation - resolved, on maintenance stool softeners # OUD - Suboxone # tobacco abuse - continue nicotine patch # VTE ppx: UFH # dispo: plan eventual home with VNA In my clinical judgment, the patient requires continued inpatient hospitalization for the following reasons: catheter replacement, on IV antibiotics for bacteremia. Time Spent With Patient Time: Total time managing care of this patient today ____ minutes. Quality Stroke Does the patient have a stroke diagnosis?: No VTE Prior VTE?: No VTE Risk Level:: Medical - moderate - high VTE Device Contraindication: Treatment Not Indicated VTE Drug Contraindication: N/A - Med Ordered
[2022-08-16 11:45] LABS: Glucose, Whole Blood 182 mg/dL (60-115)
--- NOTE | 2022-08-16 15:53 | MHC.CM.PN ---
per rounds pt will have a perma cath no dc date at this time
[2022-08-16 17:27] VITALS: BP 132/60; PULSE 55; RESP 17; TEMP 36.3; O2SAT 95
[2022-08-16 17:34] LABS: Glucose, Whole Blood 209 mg/dL (60-115)
[2022-08-16] MEDS: Acetaminophen 325 MG TABLET 650 MG PO (18:14)
[2022-08-16 19:02] VITALS: BP 131/64; PULSE 63; RESP 17; TEMP 36.6; O2SAT 97
[2022-08-16 20:01] VITALS: PULSE 65; RESP 20; O2SAT 96
[2022-08-16] MEDS: Melatonin 3 MG TABLET PO (22:30)
[2022-08-17] VITALS (9 sets, daily range): BP systolic 94–165; BP diastolic 43–71; PULSE 56–97; RESP 16–20; TEMP 36.1–36.7; O2SAT 96–98
[2022-08-17 07:52] LABS: Glucose, Whole Blood 137 mg/dL (60-115)
[2022-08-17] MEDS: hydrALAZINE HCl 50 MG TABLET 100 MG PO ×3 (09:21→20:51)
[2022-08-17] MEDS: ondansetron HCL 4 MG/2 ML VIAL IVPUSH (09:21)
[2022-08-17] MEDS: Buprenorphine/Naloxone 8/2 mg FILM 2 FILM SUBLINGUAL (09:21)
[2022-08-17] MEDS: Nicotine 21 MG PATCH.TD24 TRANSDERMA (09:21)
[2022-08-17] MEDS: amLODIPine Besylate 10 MG TABLET PO (09:21)
[2022-08-17] MEDS: polyethylene glycoL 3350 17 GM POWD.PACK PO (09:21)
[2022-08-17] MEDS: Docusate Sodium 100 MG CAPSULE PO ×2 (09:21→20:51)
[2022-08-17] MEDS: Isosorbide Dinitrate 10 MG TABLET 30 MG PO ×3 (09:21→20:51)
[2022-08-17] MEDS: 0.9 % Sodium Chloride Flush 3 ML SYRINGE IVFLUSH ×3 (09:22→20:53)
[2022-08-17] MEDS: dilTIAZem HCL CD 180 MG CAP.ER.24H 360 MG PO (09:22)
[2022-08-17] MEDS: cloNIDine HCL 0.2 MG TABLET PO ×2 (09:22→20:51)
--- NOTE | 2022-08-17 10:49 | HO.PM.IMPN ---
Subjective Subjective Date of Service: 08/17/22 Interval History: complaining of nausea this morning, is NPO, anxious about PermCath placement concern about pain, no other acute complaints, no chest pain, no lightheadedness, no dizziness, no other acute events overnight. Review of Systems Review of Systems: Yes all other systems are reviewed and are negative Physical Exam Vital Signs: Vital Signs: Last Vital Signs Temp 97.4 F 08/17/22 07:20 Pulse 56 08/17/22 07:20 Resp 18 08/17/22 07:20 BP 154/67 H 08/17/22 07:20 Pulse Ox 97 08/17/22 07:20 O2 Del Method Room Air 08/17/22 07:20 BMI result Body Mass Index 22.4 Const: Other: Gen:? Awake alert x3, in no acute distress Neck: supple,no jvd Lungs: clear to auscultation , no wheeze ,no crackles Heart: regular rate and rhythm, no murmurs Abd: soft, non-tender, non-distended, bowel sounds audible Ext: no edema Skin: no rash Neuro: alert and oriented x3, no focal findings Psych: appropriate affect Objective Data Active Medications Acetaminophen (Acetaminophen 325 Mg Tablet) 650 mg PO Q6H PRN PRN Reason: Pain, Mild (Pain Scale 1-3) Last Admin: 08/16/22 18:14 Dose: 650 mg Documented By: BONY Albuterol Sulfate (Albuterol Sulfate 90 Mcg 8 Gm Inhaler) 2 puff INHALE Q4H PRN PRN Reason: wheezing Amlodipine Besylate (Amlodipine Besylate 10 Mg Tablet) 10 mg PO DAILY [facility]; Protocol Last Admin: 08/17/22 09:21 Dose: 10 mg Documented By: SANTY Buprenorphine/Naloxone (Buprenorphine/Naloxone 8/2 Mg Film) 2 film SUBLINGUAL DAILY [facility] Last Admin: 08/17/22 09:21 Dose: 2 film Documented By: SANTY Calcium Carbonate (Calcium Carbonate 750 Mg Tab.Chew) 750 mg PO Q4H PRN PRN Reason: heartburn Last Admin: 08/14/22 15:45 Dose: 750 mg Documented By: TIFFANY Carvedilol (Carvedilol 6.25 Mg Tablet) 6.25 mg PO BID [facility]; Protocol Last Admin: 08/17/22 09:22 Dose: Not Given Documented By: SANTY Non-Admin Reason: Decreased Heart Rate Clonidine HCl (Clonidine Hcl 0.2 Mg Tablet) 0.2 mg PO BID [facility]; Protocol Last Admin: 08/17/22 09:22 Dose: 0.2 mg Documented By: SANTY Diltiazem HCl (Diltiazem Hcl Cd 180 Mg Cap.Er.24h) 360 mg PO DAILY [facility]; Protocol Last Admin: 08/17/22 09:22 Dose: 360 mg Documented By: SANTY Diphenhydramine HCl (Diphenhydramine Hcl 25 Mg Capsule) 25 mg PO DAILY PRN PRN Reason: allergy symptoms Last Admin: 08/15/22 20:25 Dose: 25 mg Documented By: CASTILM Docusate Sodium (Docusate Sodium 100 Mg Capsule) 100 mg PO BID [facility] Last Admin: 08/17/22 09:21 Dose: 100 mg Documented By: SANTY Fluticasone Propionate (Fluticasone Propionate 100 Mcg Blst.W.Dev) 1 puff INHALE RBID [facility] Last Admin: 08/17/22 07:59 Dose: Not Given Documented By: JEANETTE Non-Admin Reason: NPO Glucose (Glucose Gel 15 Gm Gel..Gram.) 15 gm PO Q15M PRN; Protocol PRN Reason: per Hypoglycemia Standing Ord. Hydralazine HCl (Hydralazine Hcl 50 Mg Tablet) 100 mg PO TID [facility]; Protocol Last Admin: 08/17/22 09:21 Dose: 100 mg Documented By: SANTY Cefazolin Sodium 2 gm/ Sodium (Chloride) 50 mls @ 100 mls/hr IV [id number] [facility] Last Infusion: 08/16/22 21:27 Dose: 0 mls/hr Documented By: OZORALB Dextrose (D10) 250 mls @ 750 mls/hr IV Q15M PRN; Protocol PRN Reason: per Hypoglycemia Standing Ord. Insulin Human Lispro (Insulin Lispro 100 Unit/Ml 3 Ml Vial) 0 unit SUBCUT QIDACHS [facility]; Protocol Last Admin: 08/17/22 07:35 Dose: Not Given Documented By: SANTY Non-Admin Reason: NPO Isosorbide Dinitrate (Isosorbide Dinitrate 10 Mg Tablet) 30 mg PO TID [facility]; Protocol Last Admin: 08/17/22 09:21 Dose: 30 mg Documented By: SANTY Lactulose (Lactulose 20 Gm/30 Ml Solution) 10 gm PO DAILY PRN PRN Reason: constipation Last Admin: 08/08/22 10:59 Dose: 10 gm Documented By: TONIE Lidocaine (Lidocaine 4 % Patch Adh..Patch) 1 patch TRANSDERMA DAILY [facility]; Protocol Last Admin: 08/17/22 09:58 Dose: Not Given Documented By: SANTY Non-Admin Reason: Off Unit: Surgery Melatonin (Melatonin 3 Mg Tablet) 3 mg PO BEDTIME PRN PRN Reason: Insomnia Last Admin: 08/16/22 22:30 Dose: 3 mg Documented By: ELIDAORALAlexus Nicotine (Nicotine 21 Mg Patch.Td24) 21 mg TRANSDERMA DAILY [facility] Last Admin: 08/17/22 09:21 Dose: 21 mg Documented By: SANTY Ondansetron HCl (Ondansetron Hcl 4 Mg/2 Ml Vial) 4 mg IVPUSH Q8H PRN PRN Reason: Nausea and Vomiting Last Admin: 08/17/22 09:21 Dose: 4 mg Documented By: SANTY Pharmacy Consult (Consult Rx Perform Med Rec) 1 each MISCELLANE ONCE PRN PRN Reason: Consult order Polyethylene Glycol (Polyethylene Glycol 3350 17 Gm Powd.Pack) 17 gm PO DAILY [facility] Last Admin: 08/17/22 09:21 Dose: 17 gm Documented By: SANTY Sodium Chloride (0.9 % Sodium Chloride Flush 3 Ml Syringe) 3 ml IVFLUSH QSHIFT [facility] Last Admin: 08/17/22 09:22 Dose: 3 ml Documented By: SANTY Labs 08/09/22 05:09 08/14/22 20:14 Labs: Laboratory Results - last 24 hr 08/16/22 08/16/22 08/17/22 11:20 17:29 07:23 POC Glucose 182 H 209 H 137 H Microbiology Microbiology Results: Microbiology 08/12/22 05:11 Blood Culture - Final Blood - Venous No growth after 5 days. 08/12/22 05:14 Blood Culture - Final Blood - Venous No growth after 5 days. Assessment and Plan (1) Bacteremia: Status: Acute (2) Tachycardia: Status: Acute (3) Fever: Status: Acute (4) End stage chronic kidney disease: Status: Acute Plan 67yo F with ESRD on HD MWF, HTN, chronic opiate dependence on Suboxone, DM, HFpEF. Admitted for fluid overload secondary to CHF and ESRD + multilobar pneumonia, found to have MSSA bacteremia with line infection # hyperK Resolved, no EKG changes. s/p Ca gluconate, SZC 10g, IV insulin 10 units + D50, 10 mg albuterol neb.and 100 mg IV furosemide, continue HD via temporary catheter PermCath placement scheduled for today # MSSA bacteremia/catheter-related bloodstream infection No recurrent fevers, no chills - BCx from 08/08 positive for MSSA at 76 hr. tunnel cath removed 08/11/22 and sent for culture, growing MSSA. redrew BCx for surveillance 08/12/22, negative at 48hr changed from vanco to cefazolin 08/10/22. will need 42d of cefazolin 2g p HD Echo showed no obvious valvular pathology, EF 55-60%, moderate to severe concentric left ventricular hypertrophy, no evidence of wall motion abnormality, and mild grade 1 diastolic dysfunction. # chronic hypoxic resp failure/ COPD without acute exac. - on home O2 1L via NC, prn albuterol # ESRD - HD MWF usual schedule, PermCath scheduled for today, aspirin held patient is NPO. # HTN - suboptimal blood pressure control on multiple antihypertensives, continue clonidine, carvedilol, amlodipine, bumetanide, diltiazem, isosorbide dinitrate,and hydralazine, discuss further med medication adjustment with Neurology # constipation - resolved, on maintenance stool softeners # OUD - Suboxone # tobacco abuse - continue nicotine patch # VTE ppx: UFH # dispo: plan eventual home with VNA In my clinical judgment, the patient requires continued inpatient hospitalization for the following reasons: PermCath placement, on IV antibiotics for bacteremia. Time Spent With Patient Time: Total time managing care of this patient today ____ minutes. Quality Stroke Does the patient have a stroke diagnosis?: No VTE Prior VTE?: No VTE Risk Level:: Medical - moderate - high VTE Device Contraindication: Treatment Not Indicated VTE Drug Contraindication: N/A - Med Ordered
--- NOTE | 2022-08-17 10:57 | PM.PNNEP ---
Subjective Subjective Date of Service: 08/17/22 Interval history: NPO, anxious about PermCath placement concern about pain, no other acute complaints, no chest pain, no lightheadedness, no dizziness, no other acute events overnight. Physical Exam Vital Signs: Vital Signs: Last Vital Signs Temp 97.4 F 08/17/22 07:20 Pulse 56 08/17/22 07:20 Resp 18 08/17/22 07:20 BP 154/67 H 08/17/22 07:20 Pulse Ox 97 08/17/22 07:20 O2 Del Method Room Air 08/17/22 07:20 BMI result Body Mass Index 22.4 Const: Other: Gen:? Awake alert x3, no acute distress HEENT: sclera anicteric, moist mucus membranes Neck: supple Right anterior chest wall at site of hemodialysis catheter with no surrounding redness, swelling or tenderness. Lungs: Clear? To auscultation bilaterally no rhonchi few expiratory wheeze Heart: regular rate and rhythm, no murmurs Abd: soft, distended, nontender bowel sounds audible Back no CVA tenderness Ext: no edema Skin: warm/well-perfused Neuro: alert and oriented x3, no focal findings Psych: appropriate affect Objective Data Labs 08/09/22 05:09 08/14/22 20:14 Labs: Laboratory Results - last 24 hr 08/16/22 08/16/22 08/17/22 11:20 17:29 07:23 POC Glucose 182 H 209 H 137 H Microbiology Microbiology Results: Microbiology 08/12/22 05:11 Blood - Venous Blood Culture - Final No growth after 5 days. 08/12/22 05:14 Blood - Venous Blood Culture - Final No growth after 5 days. 08/11/22 14:43 Catheter Tip - Subclavian Catheter Tip Culture - Final Staphylococcus aureus Staphylococcus epidermidis 08/08/22 05:04 Blood - Venous Blood Culture - Final No growth after 5 days. 08/08/22 05:04 Blood - Venous Blood Culture - Final Staphylococcus aureus 08/07/22 15:32 Blood - Venous Blood Culture - Final Staphylococcus aureus 08/07/22 15:00 Blood - Venous Blood Culture - Final Staphylococcus aureus Procedures Date of Service Date of Service: 08/17/22 Assessment & Plan Assessment and plan (1) End stage chronic kidney disease: Status: Acute Plan 67 YR old woman with ESRD and Fever Gram stain positive for GPC Currently on antibiotic coverage. repeat cultures is negative HD on MWF\ Need to convert temporary catheter to a PermCath. Continue dialysis on Sunday and watch potassium. Procrit for anemia per protocol. Await PermCath insertion Time Spent With Patient Time: Total time managing care of this patient today ____ minutes. Progress Note: Quality Stroke Does the patient have a stroke diagnosis?: No
[2022-08-17] MEDS: Heparin Sodium,Porcine 1,000 UNIT/ML VIAL 3600 UNIT IV (12:10)
[2022-08-17] MEDS: Lidocaine HCl 1 % MPF 30 ML VIAL 6 ML SUBCUT (12:12)
[2022-08-17] MEDS: Acetaminophen 325 MG TABLET 650 MG PO (14:28)
[2022-08-17 17:04] LABS: Glucose, Whole Blood 226 mg/dL (60-115)
[2022-08-17] MEDS: Insulin Lispro 100 UNIT/ML 3 ML VIAL SUBCUT ×2 (17:09→20:52)
[2022-08-17] MEDS: oxyCODONE HCl Immed Release 5 MG TABLET PO (18:04)
[2022-08-17] MEDS: Fluticasone Propionate 100 MCG BLST.W.DEV 1 PUFF INHALE (20:07)
[2022-08-17 20:24] LABS: Glucose, Whole Blood 215 mg/dL (60-115)
[2022-08-17] MEDS: carvediloL 6.25 MG TABLET PO (20:51)
[2022-08-17] MEDS: Melatonin 3 MG TABLET PO (21:48)
[2022-08-17] MEDS: diphenhydrAMINE HCL 25 MG CAPSULE PO (21:48)
[2022-08-18 04:00] VITALS: BP 157/85; PULSE 67; RESP 18; TEMP 36.7; O2SAT 99
[2022-08-18] MEDS: Acetaminophen 325 MG TABLET 650 MG PO (05:42)
[2022-08-18 07:16] VITALS: BP 163/75; PULSE 70; RESP 18; TEMP 37.3; O2SAT 98
[2022-08-18 07:32] LABS: Glucose, Whole Blood 160 mg/dL (60-115)
[2022-08-18] MEDS: hydrALAZINE HCl 50 MG TABLET 100 MG PO (08:14)
[2022-08-18] MEDS: Lidocaine 4 % Patch ADH..PATCH 1 PATCH TRANSDERMA (08:14)
[2022-08-18] MEDS: Isosorbide Dinitrate 10 MG TABLET 30 MG PO (08:14)
[2022-08-18] MEDS: Docusate Sodium 100 MG CAPSULE PO (08:14)
[2022-08-18] MEDS: Insulin Lispro 100 UNIT/ML 3 ML VIAL SUBCUT (08:14)
[2022-08-18 08:15] VITALS: BP 163/75; PULSE 70
[2022-08-18] MEDS: cloNIDine HCL 0.2 MG TABLET PO (08:15)
[2022-08-18] MEDS: dilTIAZem HCL CD 180 MG CAP.ER.24H 360 MG PO (08:15)
[2022-08-18] MEDS: ondansetron HCL 4 MG/2 ML VIAL IVPUSH (08:15)
[2022-08-18] MEDS: amLODIPine Besylate 10 MG TABLET PO (08:15)
[2022-08-18] MEDS: carvediloL 6.25 MG TABLET PO (08:15)
[2022-08-18] MEDS: polyethylene glycoL 3350 17 GM POWD.PACK PO (08:16)
[2022-08-18] MEDS: Buprenorphine/Naloxone 8/2 mg FILM 2 FILM SUBLINGUAL (08:16)
[2022-08-18] MEDS: Nicotine 21 MG PATCH.TD24 TRANSDERMA (08:16)
[2022-08-18] MEDS: 0.9 % Sodium Chloride Flush 3 ML SYRINGE IVFLUSH (08:16)
[2022-08-18] MEDS: Fluticasone Propionate 100 MCG BLST.W.DEV 1 PUFF INHALE (08:50)
[2022-08-18 08:51] VITALS: PULSE 70; RESP 18; O2SAT 98
[2022-08-18] MEDS: oxyCODONE HCl Immed Release 5 MG TABLET PO (09:06)
--- NOTE | 2022-08-18 11:00 | PM.PNNEP ---
Subjective Subjective Date of Service: 08/18/22 Interval history: Seen on HD this AM. Tolerating HD. S/P Permcath. D/W HD RN Physical Exam Vital Signs: Vital Signs: Last Vital Signs Temp 99.2 F 08/18/22 07:16 Pulse 70 08/18/22 08:51 Resp 18 08/18/22 08:51 BP 163/75 H 08/18/22 08:15 Pulse Ox 98 08/18/22 07:16 O2 Del Method Room Air 08/18/22 07:16 BMI result Body Mass Index 22.4 Const: General: no acute distress Eyes: EOM: EOMs intact bilaterally Resp: Auscultation: diminished lung sounds Cardio: Rate: regular rate GI: Palpation (GI): Soft to palpation Neuro: General: moves all extremities Objective Data Labs 08/09/22 05:09 08/14/22 20:14 Labs: Laboratory Results - last 24 hr 08/17/22 08/17/22 08/18/22 16:42 20:11 07:19 POC Glucose 226 H 215 H 160 H Microbiology Microbiology Results: Microbiology 08/12/22 05:11 Blood - Venous Blood Culture - Final No growth after 5 days. 08/12/22 05:14 Blood - Venous Blood Culture - Final No growth after 5 days. 08/11/22 14:43 Catheter Tip - Subclavian Catheter Tip Culture - Final Staphylococcus aureus Staphylococcus epidermidis 08/08/22 05:04 Blood - Venous Blood Culture - Final No growth after 5 days. 08/08/22 05:04 Blood - Venous Blood Culture - Final Staphylococcus aureus 08/07/22 15:32 Blood - Venous Blood Culture - Final Staphylococcus aureus 08/07/22 15:00 Blood - Venous Blood Culture - Final Staphylococcus aureus Procedures Date of Service Date of Service: 08/18/22 Assessment & Plan Assessment and plan (1) ESRD on dialysis: Status: Acute Assessment and Plan: End Stage Renal Disease S/P Permcath yesterday Seen on HD; Usually gets HD on MWF Needs to be on cefazolin until September 2 Gram K, 2 Gram Na, Phos restricted diet Reduce Clonidine to 0.1 mg bid Start losartan 50 mg daily Clonidine can be weaned off and losartan can be maximized Shall closely follow up in HD unit if D/Renzo Progress Note: Quality Stroke Does the patient have a stroke diagnosis?: No
--- NOTE | 2022-08-18 12:38 | MHC.CM.PN ---
pt dcd home no servceis
--- NOTE | 2022-08-18 12:39 | MHC.CM.PN ---
pt dcd home with resumption of C3 Jian and hd at the [facility] sun and fri
[2022-08-18] MEDS: Losartan Potassium 50 MG TABLET PO (13:40)
[2022-08-18 13:42] VITALS: BP 140/63; PULSE 60
--- NOTE | 2022-08-18 16:50 | W.MHC.F2F ---
Service Date Service Date: 08/18/22 Encounter Date of encounter: 08/18/22 Reasons for Services Signs and symptoms assessed: Monitor for fevers, recurrent infection, respiratory status Reason for [facility]: medication management Homebound: Leaving the home is medically contraindicated at this time without the asist of a device and/or another person due th the listed conditions above and below. Reason homebound: weakness related to hospital stay Certification: Based on the above findings, I certify that this patient is confined to the home and needs intermittent [facility] care, physical therapy and/or speech therapy, or continues to need occupational therapy. The patient is under my care, and I have initiated the establishment of the plan of care. The patient will be followed by a physician who will periodically review the plan of care. Time Spent With Patient Time: Total time managing care of this patient today ____ minutes.
--- NOTE | 2022-08-24 15:42 | P.DS_ITS ---
DS: Providers Provider Date of Service: 08/18/22 Date of admission: 08/07/22 18:22 Primary care physician: Sammy Vicente MD Consults: 08/07/22 19:09 Consult to Nephrology Routine Consulting Provider: Miguel López Reason for consultation: esrd Has provider been notified: No 08/08/22 07:38 Consult to Infectious Diseases Routine Consulting Provider: [facility] [place] Reason for consultation: gm pos bacteremia 08/10/22 10:23 Consult to Psychiatry Routine Consulting Provider: Psych Covering Reason for consultation: [facility] requests capacity eval DS: Diagnosis Discharge Diagnosis (1) ESRD on dialysis: Status: Acute DS: Summary Hospital Course Hospital Course: History of presenting illness: Date of Service: 08/07/22 Attending physician on admission: Aracelis Zuleta Chief Complaint: back pain/nausea 67 year old female with? PMHx of COPD, ESRD on HD, diabetes, HFpEF, ischemic colitis , on home oxygen 1 L who was sent to [facility] by her [employer] due to nausea, vomiting, shortness of breath, cough, kidney pain and generalized weakness, patient underwent hemodialysis treatment this morning, in emergency room patient was noted to be spitting mucous, complained of right- sided mid back discomfort, she denied fever headache dizziness lightheadedness, denies sick contacts, patient complains of constipation no bowel movement in 2 weeks she normally makes urine but has had no urine output in 2 weeks, patient lives alone at home workup in the ER included a CT abdomen and pelvis showed no hydronephrosis, no renal stones, normal urinary bladder she was noted to have large stool burden CT chest showed no acute infiltrate it showed improvement in previously seen congestive heart failure , vitals blood pressure 195/65,, temp 100.3 degrees, pulse 124, in ER patient treated with IV ceftriaxone, patient is being admitted to [facility] with a diagnosis of Sirs with tachycardia, leukocytosis no source of infection. Hospital course: 67yo F with ESRD on HD MWF, HTN, chronic opiate dependence on Suboxone, DM, HFpEF.? Admitted for fluid overload secondary to CHF and ESRD + multilobar pneumonia, found to have MSSA bacteremia with line infection # MSSA bacteremia/catheter-related bloodstream infection, BCx from 08/08 positive for MSSA at 76 hr.? tunnel cath removed 08/11/22 and sent for culture, growing MSSA.? redrew BCx for surveillance 08/12/22, negative at 48hr ? changed from vanco to cefazolin 08/10/[address] Brito she recommend 42d of cefazolin 2g p HD?is starting from negative blood cultures, Echo showed no obvious valvular pathology, EF 55-60%, moderate to severe concentric left ventricular hypertrophy, no evidence of wall motion abnormality, and mild grade 1 diastolic dysfunction, patient is being discharged home with VNA services. # chronic hypoxic resp failure/ COPD without acute exac. Recommend to continue home O2 1 L via nasal cannula and as needed albuterol # ESRD recommend to continue hemodialysis Sunday as before, receive hemodialysis through a temporary dialysis catheter after removal of tunneled catheter, subsequently had had new PermCath placed Also noted to have hyperK, had no EKG changes potassium normalized treated with Ca gluconate, SZC 10g, IV insulin 10 units + D50, 10 mg albuterol neb.and 100 mg IV furosemid. # HTN continue home medications with close outpatient follow-up # constipation - resolved, on maintenance stool softeners # OUD - Suboxone # tobacco abuse - continue nicotine patch Time Spent with Patient Time attestation: Total time managing care of this patient today ____ minutes. Discharge coordination time: Greater than 30 minutes Quality: Safe Use of Opioids Does Pt have an Active Cancer Diagnosis on the Problem List?: No Quality: Stroke Does the patient have a stroke diagnosis?: No Physical Exam Vital Signs: Vital Signs: Last Vital Signs Temp 99.2 F 08/18/22 07:16 Pulse 60 08/18/22 13:42 Resp 18 08/18/22 08:51 BP 140/63 H 08/18/22 13:42 Pulse Ox 98 08/18/22 07:16 O2 Del Method Room Air 08/18/22 07:16 BMI result Body Mass Index 22.4 Const: Other: Gen:? Awake alert x3, in no acute di stress Neck: suppl e,no jvd Lungs: cl ear to auscultatio n , no wheeze ,no crackles Heart: re gular rate and rhy thm, no murmurs Ab d: soft, non-tende r, non-distended, bowel sounds audib le Ext: no edema S kin:? no rash Neur o: alert and orien kalen x3, no focal f indings Psych: ange ropriate affect DS: Data Data Completed and Pending Completed studies during hospitalization [Text1]: Procedures Assistance with Respiratory Ventilation, Less than 24 Consecutive Hours, Continuous Positive Airway Pressure (04/14/22) Excision of Left Kidney, Percutaneous Approach, Diagnostic (02/25/21) Excision of Right Kidney, Percutaneous Approach, Diagnostic (10/22/20) Fluoroscopy of Superior Vena Cava using Low Osmolar Contrast, Guidance (08/07/22) Insertion of Endotracheal Airway into Trachea, Via Natural or Artificial Opening (10/12/21) Insertion of Infusion Device into Right Atrium, Percutaneous Approach (08/07/22) Insertion of Infusion Device into Superior Vena Cava, Percutaneous Approach (08/07/22) Insertion of Tunneled Vascular Access Device into Chest Subcutaneous Tissue and Fascia, Percutaneous Approach (08/07/22) Performance of Urinary Filtration, Intermittent, Less than 6 Hours Per Day (08/07/22) Removal of Totally Implantable Vascular Access Device from Trunk Subcutaneous Tissue and Fascia, Open Approach (08/07/22) Respiratory Ventilation, 24-96 Consecutive Hours (10/12/21) Transfusion of Nonautologous Red Blood Cells into Peripheral Vein, Percutaneous Approach (02/25/21) Ultrasonography of Superior Vena Cava, Guidance (01/30/22) Discharge Plan Discharge Anticipated Discharge Date/Time: 08/18/22 11:35 Patient Disposition: Home Health Service Discharge Diagnosis: MSSA bacteremia Hyperkalemia End-stage renal disease Referrals: [facility] [Other] - 1 Week Sammy Vicente MD [Primary Care Provider] - 1 Week Discharge Medications: New losartan 50 mg Tablet 50 mg PO DAILY Qty: 30 0RF Protocol: Hold for SBP< HOLD for SBP < : 90 clonidine HCl 0.1 mg Tablet 0.1 mg PO BID Qty: 60 0RF Protocol: Hold for SBP< HOLD for SBP < : 90 Continued buprenorphine-naloxone [Suboxone] 8-2 mg film 2 strip sublingual DAILY diltiazem HCl 180 mg capsule,extended release 24hr 360 mg PO DAILY docusate sodium [Colace] 100 mg capsule 100 mg PO BID PRN (Reason: Constipation) Qty: 30 0RF bumetanide 2 mg Tablet 2 mg PO DAILY pantoprazole 40 mg Tablet,Delayed Release (Dr/Ec) 40 mg PO DAILY melatonin 5 mg Tablet 5 mg PO BEDTIME PRN (Reason: Sleep) fluticasone propionate [Flovent HFA] 110 mcg/actuation Hfa Aerosol Inhaler 1 puff INHALATION BID sennosides [senna] 8.6 mg tablet 1 - 2 tab PO BEDTIME PRN (Reason: constipation) aspirin 81 mg tablet,delayed release (DR/EC) 1 tab PO DAILY albuterol sulfate [Ventolin HFA] 90 mcg/actuation HFA aerosol inhaler 2 puff INHALATION Q4H PRN (Reason: wheezing) ondansetron 4 mg tablet,disintegrating 4 mg PO BID PRN (Reason: nausea and vomiting) carvedilol 6.25 mg tablet 1 tab PO BID diphenhydramine HCl [Benadryl] 25 mg capsule 25 mg PO DAILY PRN (Reason: allergy symptoms) Qty: 30 0RF albuterol sulfate 2.5 mg /3 mL (0.083 %) solution for nebulization 1 amp inhalation TID PRN (Reason: Shortness Of Breath) acetaminophen 500 mg tablet 500 mg PO Q6H PRN (Reason: fever or pain) Qty: 20 0RF lactulose 10 gram/15 mL solution 10 g PO DAILY PRN (Reason: constipation) Qty: 237 0RF isosorbide dinitrate 30 mg Tablet 30 mg PO TID Rx Instructions: allow nitrate-free interval of 12-14 hrs per 24-hr period amlodipine 10 mg tablet 10 mg PO DAILY Protocol: Hold for SBP< HOLD for SBP < : 90 Rx Instructions: replaces prior dose of 5 mg daily hydralazine 100 mg Tablet 100 mg PO TID nicotine 21 mg/24 hr patch 24 hour 1 patch topical DAILY Discontinued clonidine HCl 0.2 mg tablet 0.2 mg PO BID Discharge Orders: Discharge Order (Routine); Ordered 08/18/22 Ordered By: Aracelis Zuleta Diet: low K diet Activity on Discharge: As tolerated Stand Alone Forms: Patient Portal Discharge page Care Plan Goals: Continue IV cefazolin 2 g Sunday and Sunday at hemodialysis last day September 22 Continue hemodialysis as before For hypertension dose of clonidine reduced to 0.1 mg b.i.d. started on new medication losartan 50 mg daily Health Concerns: Tobacco use disorder strongly recommend to completely abstain from smoking continue nicotine patch Plan of Treatment: Outpatient follow-up with Nephrology and primary care physician call for appoint ment Assessment: As above Discharge Date/Time: 08/18/22 14:54
== END 2022-08-18 14:54 | disposition home health service (06) | DRG 314 ==
LOC: HO.ED 17:48 → HO.EDOVER 18:30 → HO.S3 19:03
PROVIDERS: Family Medicine; Internal Medicine; Physician Assistant Medical; Radiology Diagnostic Radiology; Admitting Provider Hospitalist; Emergency Provider Emergency Medicine; PCP Internal Medicine; Visit Provider Hospitalist
PROC: 02HV33Z Insertion of Infusion Device into Superior Vena Cava, Percutaneous Approach (ICD-10-PCS; principal; 2022-08-14 10:30)
PROC: 0JH63XZ Insertion of Tunneled Vascular Access Device into Chest Subcutaneous Tissue and Fascia, Percutaneous Approach (ICD-10-PCS; principal; 2022-08-17 10:30)
DX: T80.211A Bloodstream infection due to central venous catheter, initial encounter (principal); N18.6 End stage renal disease; I13.2 Hypertensive heart and chronic kidney disease with heart failure and with stage 5 chronic kidney disease, or end stage renal disease; J96.11 Chronic respiratory failure with hypoxia; R78.81 Bacteremia; F11.20 Opioid dependence, uncomplicated; I50.32 Chronic diastolic (congestive) heart failure; Y82.8 Other medical devices associated with adverse incidents; E11.22 Type 2 diabetes mellitus with diabetic chronic kidney disease; K59.00 Constipation, unspecified; E87.5 Hyperkalemia; B95.61 Methicillin susceptible Staphylococcus aureus infection as the cause of diseases classified elsewhere; Z20.822 Contact with and (suspected) exposure to COVID-19; Z99.81 Dependence on supplemental oxygen; Z91.15 Patient's noncompliance with renal dialysis; Z99.2 Dependence on renal dialysis; F17.210 Nicotine dependence, cigarettes, uncomplicated; Z79.51 Long term (current) use of inhaled steroids; Z79.82 Long term (current) use of aspirin; Z79.899 Other long term (current) drug therapy
CPT/HCPCS: 0241U; 36415; 36556; 36558; 36589; 71046; 74176; 80048; 80053; 80202; 81001; 82947; 83605; 83735; 84132; 84484; 85025; 85027; 85610; 85652; 85730; 86140; 87040; 87070; 87071; 87077; 87186; 87205; 90935; 90999; 93005; 93306; 94640; 97162; 99152; 99153; 99285; C1750; C1752; C1769; J0611; J0690; J0696; J1170; J1200; J1643; J1940; J2405; J2765; J3370; J3371; Q9957

== ENCOUNTER 2022-08-30 16:16 | Observation (INO) | payer OTHER, SELFPAY ==
[2022-08-30] VITALS (7 sets, daily range): BP systolic 188–237; BP diastolic 77–110; PULSE 69–109; RESP 14–20; TEMP 36.4–36.9; O2SAT 96–100; BMI 23.6
--- NOTE | ~2022-08-30 | CT_ITS ---
EXAMINATION: CT ABDOMEN AND PELVIS WITHOUT CONTRAST CLINICAL INFORMATION: Left flank and lower back COMPARISON: CT abdomen pelvis 08/07/2022, 07/10/2022, 07/03/2022, 05/24/2022, 04/28/2022, 03/26/2022, 01/30/2022 and multiple others TECHNIQUE: Multidetector volumetric imaging was performed from the superior aspect of the liver through the pubic symphysis. Sagittal and coronal reformatted images were obtained on the technologist's workstation. This CT examination was performed using dose optimization techniques as appropriate, variously including the following: *Automated exposure control *Adjustment of mA and/or kV according to patient size (this includes techniques or standardized protocols for targeted exams where dose is matched to indication/reason for exam; i.e. extremities or head) *Use of iterative reconstruction technique DLP: 346 mGy-cm FINDINGS: LUNG BASES: The heart is mildly enlarged. No infiltrates, effusions or lung masses are seen. LIVER, GALLBLADDER, AND BILIARY TREE: The liver is enlarged measuring 17.2 cm in greatest cephalocaudad dimension. Decreased attenuation seen previously not present on the current study. No focal hepatic lesion or biliary ductal dilatation is present. Status post cholecystectomy. PANCREAS: No abnormality is seen. Marked motion artifact limits utility. SPLEEN: No definite abnormality seen. ADRENAL GLANDS: No adrenal mass is seen. KIDNEYS AND URETERS: The kidneys are normal in size, shape, and attenuation. There is a benign Bosniak class I left upper pole renal cyst which needs no additional imaging or follow-up. No solid renal masses. No renal calculi are seen. No renal calculi have been seen on any recent imaging. No hydronephrosis or hydroureter seen. There is nonspecific bilateral perinephric stranding. BLADDER: Unremarkable. GASTROINTESTINAL TRACT: A large stool burden is present throughout the colon. The small and large bowel are otherwise unremarkable. The appendix is unremarkable. ABDOMINAL WALL: No significant hernia is appreciated. LYMPH NODES: Shotty retroperitoneal lymph nodes are seen but there is no adenopathy. 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 PELVIC VISCERA: Unremarkable. OSSEOUS STRUCTURES: Mild degenerative changes are present in the spine. There is compression of the superior endplate of the L3 vertebral body, unchanged from prior CT/CT abdomen pelvis wo IV con IMPRESSION: 1. A cause for the patient's left flank and lower back pain not been found. There is no nephrolithiasis at this time. 2. Incidental note made of hepatomegaly, stable compression fracture superior endplate L3, stable calcified right renal artery aneurysm and other findings described above. Fleischner guidelines were followed.
--- NOTE | ~2022-08-30 | CT_ITS ---
EXAMINATION: CT CHEST WITH CONTRAST CLINICAL INFORMATION: Rule out malignancy. COMPARISON: 07/10/2022 03/26/2022 TECHNIQUE: Multidetector volumetric CT imaging of the chest was obtained after the administration of 65 mL of Omnipaque 350 intravenous contrast without immediate adverse reactions. Axial MIP volume rendering provided. Sagittal and coronal reformatted images were obtained. This CT examination was performed using dose optimization techniques as appropriate, variously including the following: *Automated exposure control *Adjustment of mA and/or kV according to patient size (this includes techniques or standardized protocols for targeted exams where dose is matched to indication/reason for exam; i.e. extremities or head) *Use of iterative reconstruction technique DLP: 217 mGy-cm FINDINGS: LUNGS: Diffuse moderate bronchial thickening without bronchiectasis. No focal consolidation or pneumonitis. No pulmonary nodules or masses. MEDIASTINUM: Marked cardiomegaly. Coronary calcifications present. Great vessels normal caliber. No mediastinal or hilar lymphadenopathy by size criteria. PLEURA: There is no pleural effusion. No pleural mass or thickening. AXILLA: No lymphadenopathy. UPPER ABDOMEN: Hepatomegaly. OSSEOUS STRUCTURES: No acute or suspicious osseous abnormalities. CT/CT chest w IV con IMPRESSION: * No evidence of intrathoracic malignancy. * Diffuse moderate bronchial thickening without bronchiectasis. * Marked cardiomegaly. * Hepatomegaly.
--- NOTE | ~2022-08-30 | XR_ITS ---
EXAMINATION: XR CHEST CLINICAL INFORMATION: Dyspnea. COMPARISON: Chest radiograph 08/07/2022. CT chest 07/10/2022. TECHNIQUE: Frontal view of the chest was obtained. FINDINGS: Large bore right IJ central venous catheter terminating at the level of the cavoatrial junction, unchanged. Unchanged cardiomegaly. No focal airspace opacity, overt edema, pleural effusion or pneumothorax. A nodular-like opacity measuring 1.7 cm projecting over the left midlung appears slightly increased compared to June 2022. No acute osseous findings. Old bilateral rib fractures. XR/XR chest 1V IMPRESSION: Equivocal increased size of a nodular-like opacity in the left midlung, recommend correlation with a CT chest with IV contrast to rule out malignancy. The report will be called to the ordering clinician by a [place] [facility] Physician Mobile Application Engineer.
--- NOTE | 2022-08-30 16:25 | ECG_ITS ---
Test Reason : BACK PAIN Blood Pressure : / mmHG Vent. Rate : 083 BPM Atrial Rate : 083 BPM P-R Int : 172 ms QRS Dur : 096 ms QT Int : 394 ms P-R-T Axes : 061 -26 051 degrees QTc Int : 462 ms Normal sinus rhythm Moderate voltage criteria for LVH, may be normal variant ( R in aVL , Jona product ) Borderline ECG When compared with ECG of 14-AUG-2022 14:55, Vent. rate has increased BY 30 BPM Referred By: Kartik Leone Electronically Signed By:CRISTIAN REMY MD
--- NOTE | 2022-08-30 16:29 | ED_ITS ---
HPI - General Adult General Chief complaint: General Medical Stated complaint: Lower back pain Time Seen by Provider: 08/30/22 16:24 Source: patient and EMS Mode of arrival: EMS Limitations: other (Poor historian) History of Present Illness HPI narrative: This is a 67-year-old female history of COPD, DM, hypertensive emergency, elevated serum immunoglobulin free light chains, ESRD on dialysis ( patient states T,TH,Sat however unclear) presenting to the emergency department complaints of left flank pain since this morning, severe, intermittent sharp in nature. Patient also reports that she has not been able to urinate for the past 2 weeks. Patient states pain is severe and debilitating. Also reports that her abdomen appears distended this is also new. Patient poor historian and just tells me she just does not feel well. Denies chest pain, shortness of breath, nausea, vomiting, diarrhea, constipation, headache, vision changes, midline back pain, saddle paresthesias. Related Data Home Medications Medication Instructions Recorded Confirmed buprenorphine 8 mg-naloxone 2 mg 2 strip sublingual DAILY 10/22/20 08/31/22 sublingual film (Suboxone) diltiazem HCl 180 mg 360 mg PO DAILY 10/22/20 08/31/22 capsule,extended release 24 hr bumetanide 2 mg tablet 2 mg PO DAILY 04/15/21 08/31/22 fluticasone propionate 110 1 puff inhalation BID 04/15/21 08/31/22 mcg/actuation HFA aerosol inhaler (Flovent HFA) melatonin 5 mg tablet 5 mg PO BEDTIME PRN Sleep 04/15/21 08/31/22 pantoprazole 40 mg tablet,delayed 40 mg PO DAILY@0630 04/15/21 08/31/22 release sennosides 8.6 mg tablet (senna) 1 - 2 tab PO BEDTIME PRN 05/11/21 08/31/22 constipation aspirin 81 mg tablet,delayed 1 tab PO DAILY 10/11/21 08/31/22 release albuterol sulfate 90 mcg/actuation 2 puff inhalation Q4H PRN wheezing 01/31/22 08/31/22 aerosol inhaler (Ventolin HFA) ondansetron 4 mg disintegrating 4 mg PO BID PRN nausea and vomiting 03/09/22 08/31/22 tablet carvedilol 6.25 mg tablet 1 tab PO BID 04/24/22 08/31/22 albuterol sulfate 2.5 mg/3 mL 1 amp inhalation TID PRN Shortness 05/08/22 08/31/22 (0.083 %) solution for nebulization Of Breath amlodipine 10 mg tablet 10 mg PO DAILY 07/10/22 08/31/22 hydralazine 100 mg tablet 100 mg PO TID 07/10/22 08/31/22 isosorbide dinitrate 30 mg tablet 30 mg PO TID 07/10/22 08/31/22 nicotine 21 mg/24 hr daily 1 patch topical DAILY 08/07/22 08/31/22 transdermal patch diclofenac sodium 1 % topical gel 2 g topical BID 08/31/22 08/31/22 vitamin B comp no.3-folic acid 1 1 tab PO DAILY 08/31/22 08/31/22 mg-vit C 60 mg-biotin 300 mcg tablet ([facility]) Previous Rx's Medication Instructions Recorded docusate sodium 100 mg capsule 100 mg PO BID PRN Constipation #30 12/04/21 (Colace) caps diphenhydramine HCl 25 mg capsule 25 mg PO DAILY PRN allergy 04/30/22 (Benadryl) symptoms #30 caps lactulose 10 gram/15 mL oral 10 g (15 mL) PO DAILY PRN 07/03/22 solution constipation #237 mL clonidine HCl 0.1 mg tablet 0.1 mg PO BID #60 tabs 08/18/22 losartan 50 mg tablet 50 mg PO DAILY #30 tabs 08/18/22 Allergies Allergy/AdvReac Type Severity Reaction Status Date / Time No Known Allergies Allergy Mild NOT Verified 04/14/22 01:40 APPLICABLE Review of Systems Review of Systems: Constitutional : No Weight loss, No Fever, No Chills, + Fatigue, + Malaise ENT/Mouth : No sore throat, No Rhinorrhea Eyes: No Eye Pain, No Swelling, No Redness Cardiovascular : No Chest Pain, No SOB, No Dyspnea on Exertion, No Orthopnea, No Edema, No Palpitations Respiratory : No Cough, No Sputum, No Wheezing Gastrointestinal : No Nausea, No Vomiting, No Diarrhea, No Constipation, No abdominal Pain, No Hematochezia, No Melena Genitourinary : No Dysuria, No Urinary Frequency, No Hematuria, Musculoskeletal : No joint pain, No Myalgias, No Joint Swelling, + flank pain Skin : No Skin Lesions, No rash Neuro : No Weakness, No Numbness, No Dizziness, No Headache Psych : No Anxiety/Panic, No Depression All other systems reviewed and are negative Yes all other systems are reviewed and are negative [facility] Past Medical History Attestation statement: The following information was validated with the patient. Source: old records reviewed and nursing notes reviewed Medical History Acute exacerbation of chronic obstructive pulmonary disease (COPD) Acute GI bleeding Anasarca Anemia Anemia in chronic kidney disease Ascites Asthma with COPD with exacerbation Congestive heart failure with left ventricular dysfunction Constipation COVID COVID-19 virus infection Delirium Diabetes mellitus Dialysis patient, noncompliant End stage chronic kidney disease End stage renal disease on dialysis ESRD (end stage renal disease) ESRD (end stage renal disease) ESRD on dialysis Essential hypertension Fever Heart failure with preserved ejection fraction Hypertension Hypertrophic cardiomyopathy Ischemic colitis Leukocytosis Opioid withdrawal Pulmonary congestion Sepsis Tachycardia Surgical History No pertinent past surgical history Family History Family History Other Hypertension Social History Social History Household Members: None Housing: Apartment Do you presently have visiting nurse or other home services: Yes Unable to assess alcohol history related to: Unknown Alcohol intake: never Patient Tobacco Use Status: Current everyday Tobacco user Tobacco use type: Cigarette Cigarette Packs Per Day: 1 Cigarettes Per Day: 2 Years Smoked: 18 e-Cigarette/Vaping Use: Former Use Second Hand Smoke Exposure: No Substance Use Type: Crack/Cocaine Advance Directives Date on File: 04/17/22 service: No Current occupational status: disabled Physical Exam ED Vital Signs: Vital Signs - 24 hr 08/30/22 17:09 08/30/22 17:50 08/30/22 19:45 Temperature 98.5 F 97.6 F Pulse Rate 84 90 108 H Respiratory Rate 15 16 14 Blood Pressure 200/84 H 212/85 H 237/110 H Pulse Oximetry 96 98 100 Oxygen Delivery Method Room Air Room Air Room Air 08/30/22 20:00 08/30/22 21:38 08/30/22 23:56 Temperature 98.4 F 98.2 F 98.3 F Pulse Rate 91 109 H 69 Respiratory Rate 16 20 15 Blood Pressure 217/91 H 234/90 H 188/77 H Pulse Oximetry 100 Oxygen Delivery Method Room Air Room Air BMI result Body Mass Index 23.6 vss Appearance: Alert.? Oriented X3.? No acute distress.? Head: Normocephalic, atraumatic, no step-offs or deformities Eyes: Pupils equal, round and reactive to light.? Neck: Normal inspection.? Neck supple.? CVS: Normal heart rate and rhythm.? Pulses normal.? Respiratory: No respiratory distress.? Breath sounds normal.? Abdomen: Soft and diffusley tender and distended normal BS in all 4 quadrants. Skin: Skin warm and dry.? Normal skin color.? Normal skin turgor.? Extremities: No lower extremity edema.? No calf ttp. 5/5 strength to bilateral upper and lower extremities Neuro: Oriented X 3.? No motor deficit.? No sensory deficit. CN 2-12 intact Course Reevaluation(s) Reevaluation #1: CBC appears to be around patient's baseline with normocytic anemia. Chemistry with chronically low sodium, patient noted to have kidney injury however she has a history of end-stage renal disease on dialysis this is around patient's baseline she is scheduled for dialysis tomorrow. No other acute electrolyte abnormalities requiring intervention. CT of the abdomen and pelvis with no explanation for patient's left flank pain and lower back pain. No nephrolithiasis. Incidental note of had a splenomegaly. Stable fracture of L3. Calcified renal artery aneurysm noted however no acute findings. Patient's IV line did infiltrate, patient very difficult stick initially the I placed a 22 gauge IV under ultrasound guidance to left AC. Will obtain another line at this time and given medications for blood pressure control. Time: 21:58 Reevaluation #2: Labetalol given as well as nitro, patient's blood pressure still elevated so complaining of severe left-sided flank pain. Patient's blood pressure 192/80. It did go down to 180/77 however going back up. I did discuss this case with hospitalist patient is requiring IV blood pressure medications, will admit her for hypertensive urgency. No signs of hypertensive emergency. I did discuss this case with hospitalist will take admission Time: 00:26 Medications Administered Discontinued Medications Generic Name Dose Route Start Last Admin Trade Name Goyo PRN Reason Stop Dose Admin Acetaminophen 650 mg 08/31/22 00:26 08/31/22 14:10 Acetaminophen 325 Mg Tablet PO 650 mg Q6H PRN Administration Pain, Mild (Pain Scale 1-3) Amlodipine Besylate 10 mg 08/30/22 16:24 08/30/22 17:20 Amlodipine Besylate 10 Mg Tablet PO 08/30/22 16:25 10 mg ONCE ONE Administration Protocol Amlodipine Besylate 10 mg 08/31/22 10:45 09/01/22 08:27 Amlodipine Besylate 10 Mg Tablet PO 10 mg DAILY [facility] Administration Protocol Aspirin 81 mg 08/31/22 10:45 09/01/22 08:27 Aspirin Enteric Coated 81 Mg Tablet.Dr PO 81 mg DAILY PHAN Administration Bisacodyl 10 mg 08/31/22 01:36 08/31/22 02:06 Bisacodyl 10 Mg Supp.Rect [place] 08/31/22 01:37 10 mg ONCE ONE Administration Bumetanide 2 mg 08/31/22 10:45 09/01/22 08:25 Bumetanide 1 Mg Tablet PO 2 mg DAILY [facility] Administration Protocol Buprenorphine/Naloxone 1 film 08/31/22 10:45 09/01/22 08:28 Buprenorphine/Naloxone 8/2 Mg Film SUBLINGUAL 1 film DAILY PHAN Administration Carvedilol 6.25 mg 08/31/22 10:45 09/01/22 08:27 Carvedilol 6.25 Mg Tablet PO 6.25 mg BID PHAN Administration Protocol Clonidine HCl 0.1 mg 08/31/22 10:45 09/01/22 08:27 Clonidine Hcl 0.1 Mg Tablet PO 0.1 mg BID PHAN Administration Protocol Diltiazem HCl 360 mg 08/31/22 10:45 09/01/22 08:28 Diltiazem Hcl Cd 180 Mg Cap.Er.24h PO 360 mg DAILY PHAN Administration Protocol Diphenhydramine HCl 25 mg 08/31/22 00:27 08/31/22 00:55 Diphenhydramine Hcl 50 Mg/Ml Vial IVPUSH 08/31/22 00:28 25 mg ONCE ONE Administration Diphenhydramine HCl 50 mg 08/31/22 02:41 08/31/22 02:52 Diphenhydramine Hcl 50 Mg/Ml Vial IVPUSH 08/31/22 02:42 50 mg ONCE ONE Administration Diphenhydramine HCl 25 mg 08/31/22 10:36 08/31/22 14:12 Diphenhydramine Hcl 25 Mg Capsule PO 25 mg DAILY PRN Administration allergy symptoms Diphenhydramine HCl 50 mg 08/31/22 20:54 08/31/22 21:05 Diphenhydramine Hcl 50 Mg/Ml Vial IVPUSH 08/31/22 20:55 50 mg ONCE ONE Administration Enoxaparin Sodium 30 mg 08/31/22 00:30 09/01/22 00:51 Enoxaparin Sodium 30 Mg/0.3 Ml Syringe SUBCUT 30 mg Q24H [facility] Administration Fentanyl 25 mcg 08/31/22 00:23 08/31/22 00:55 Fentanyl Citrate/Pf 100 Mcg/2 Ml Vial IVPUSH 08/31/22 00:24 25 mcg ONCE ONE Administration Protocol Hydralazine HCl 100 mg 08/31/22 10:45 09/01/22 08:26 Hydralazine Hcl 50 Mg Tablet PO 100 mg TID [facility] Administration Protocol Hydromorphone HCl 1 mg 08/31/22 01:42 08/31/22 21:04 Hydromorphone Hcl 1 Mg/Ml Syringe IVPUSH 1 mg Q4H PRN Administration Pain, Severe (Pain Scale 7-10) Protocol Iohexol 65 ml 08/31/22 01:55 08/31/22 01:56 Iohexol 350 Mg/Ml 100 Ml Infus..Btl IV 08/31/22 01:56 65 ml ONCE ONE Administration Isosorbide Dinitrate 30 mg 08/31/22 10:45 09/01/22 08:28 Isosorbide Dinitrate 10 Mg Tablet PO 30 mg TID PHAN Administration Protocol Labetalol HCl 10 mg 08/30/22 23:24 08/30/22 23:41 Labetalol Hcl 100 Mg/20 Ml Vial IVPUSH 08/30/22 23:25 10 mg ONCE ONE Administration Labetalol HCl 10 mg 08/31/22 01:29 08/31/22 01:38 Labetalol Hcl 100 Mg/20 Ml Vial IVPUSH 08/31/22 01:30 10 mg ONCE ONE Administration Labetalol HCl 10 mg 08/31/22 06:05 08/31/22 06:43 Labetalol Hcl 100 Mg/20 Ml Vial IVPUSH 08/31/22 06:06 10 mg ONCE ONE Administration Losartan Potassium 50 mg 08/31/22 10:45 09/01/22 08:28 Losartan Potassium 50 Mg Tablet PO 50 mg DAILY PHAN Administration Protocol Melatonin 6 mg 08/31/22 00:26 08/31/22 21:05 Melatonin 3 Mg Tablet PO 6 mg BEDTIME PRN Administration Insomnia Metoclopramide HCl 10 mg 08/31/22 00:27 08/31/22 00:55 Metoclopramide Hcl 10 Mg/2 Ml Vial IVPUSH 08/31/22 00:28 10 mg ONCE ONE Administration Morphine Sulfate 2 mg 08/30/22 18:55 08/30/22 19:41 Morphine Sulfate 2 Mg/Ml Cartridge IVPUSH 08/30/22 18:56 2 mg ONCE ONE Administration Protocol Morphine Sulfate 4 mg 08/30/22 20:28 08/30/22 23:13 Morphine Sulfate 4 Mg/Ml Cartridge IVPUSH 08/30/22 20:29 4 mg ONCE ONE Administration Protocol Nicotine 21 mg 08/31/22 10:45 09/01/22 08:28 Nicotine 21 Mg Patch.Td24 TRANSDERMA 21 mg DAILY PHAN Administration Nitroglycerin 1 inch 08/30/22 23:05 08/30/22 23:13 Nitroglycerin 2 % Oint 1 Gm Packet TRANSDERMA 08/30/22 23:06 1 inch ONCE ONE Administration Olanzapine 5 mg 08/31/22 02:41 08/31/22 02:52 Olanzapine 10 Mg Vial IM 08/31/22 02:42 5 mg STAT STA Administration Omeprazole 20 mg 09/01/22 06:30 09/01/22 06:13 Omeprazole 20 Mg Capsule. PO 20 mg DAILY@0630 PHAN Administration Ondansetron HCl 4 mg 08/30/22 20:28 08/30/22 23:23 Ondansetron Hcl 4 Mg/2 Ml Vial IVPUSH 08/30/22 20:29 Not Given ONCE ONE Ondansetron HCl 4 mg 08/30/22 21:41 08/30/22 22:21 Ondansetron Odt 4 Mg Tab.Rapdis TRANSLINGU 08/30/22 21:42 4 mg ONCE ONE Administration Ondansetron HCl 4 mg 08/31/22 00:26 09/01/22 08:48 Ondansetron Hcl 4 Mg/2 Ml Vial IVPUSH 4 mg Q8H PRN Administration Nausea and Vomiting Polyethylene Glycol 17 gm 08/31/22 01:36 08/31/22 02:06 Polyethylene Glycol 3350 17 Gm Powd.Pack PO 08/31/22 01:37 17 gm ONCE ONE Administration Sodium Chloride 3 ml 08/31/22 08:00 09/01/22 08:35 0.9 % Sodium Chloride Flush 3 Ml Syringe IVFLUSH 3 ml QSHIFT PHAN Administration Medical Decision Making Medical Decision Making [facility] Narrative: 1660 67 year old female presents with severe left-sided flank pain and inability to void. Patient is in end-stage renal disease patient on dialysis Sunday and Sunday. Poor historian difficult to obtain a clear history. Physical exam with a diffusely tender abdomen which appears distended, with normoactive bowel sounds. Patient was hypertensive Concerns for possible kidney stone versus obstructing uropathy versus mild ascites. Unlikely SBP. No signs of acute abdomen, obstruction. No signs of cauda equina or epidural abscess. Will rule out UTI and metabolic disturbances. Hypertension likely secondary to non med compliance, will give home amlodipine. Unlikely hypertensive emergency . No signs of stroke or posterior stroke Plan at this time basic labs, imaging, urine. Home amlodipine ordered for hypertension Differential Diagnosis Differential Diagnoses: The differential diagnosis associated with the presentation includes Concerns for possible kidney stone versus obstructing uropathy versus mild ascites. Unlikely SBP. No signs of acute abdomen, obstruction. No signs of cauda equina or epidural abscess. Will rule out UTI and metabolic disturbances. Hypertension likely secondary to non med compliance, will give home amlodipine. Unlikely hypertensive emergency . No signs of stroke or posterior stroke Admission/Observation Consideration of admission/observation: Escalation of care including admission/observation considered likely Lab Data [facility] Lab Attestation statement: I reviewed the patient's lab results. 08/30/22 18:25 08/30/22 18:25 Labs: Lab Results 08/30/22 08/30/22 08/30/22 Range/Units 16:52 18:25 18:25 WBC 5.9 (4.8-10.8) X10*3/uL RBC 3.27 L (4.20-5.50) X10*6/uL Hgb 10.0 L (12.0-16.0) g/dl Hct 31.1 L (37.0-47.0) % MCV 95.1 (80.0-98.0) fL MCH 30.6 (27.0-33.0) pg MCHC 32.2 (31.0-35.0) g/dl RDW 14.8 (11.0-16.0) % Plt Count 223 (160-400) X10*3/uL MPV 10.1 (9.4-12.3) fL Immature Gran % (Auto) 0.3 (0.0-0.4) % Neut % (Auto) 65.8 (45-73) % Lymph % (Auto) 18.3 L (20-40) % Millard % (Auto) 10.1 (2-11) % Eos % (Auto) 5.0 H (0-4) % Baso % (Auto) 0.5 (0-2) % Lymph # (Auto) 1.1 L (1.2-4.9) X10*3/uL Millard # (Auto) 0.6 (0.1-1.2) X10*3/uL Eos # (Auto) 0.3 (0.0-0.4) X10*3/uL Baso # (Auto) 0.0 (0.0-0.2) X10*3/uL Abs Immat Gran (auto) 0.02 (0.00-0.03) X10*3/uL Absolute Neuts (auto) 3.9 (2.0-8.3) x10*3/uL Absolute Nucleated RBC 0.000 (0.0-0.012) X10*3/uL Nucleated RBC % (auto) 0.0 (0.0-0.2) /100WBC VBG pH (7.32-7.43) VBG pCO2 mmHg VBG pO2 mmHg VBG HCO3 (22-26) mmol/L VBG O2 Saturation % VBG Base Excess mmol/L Sodium 132 L (135-145) mmol/L Potassium 5.0 D (3.3-5.1) mmol/L Chloride 92 L (96-108) mmol/L Carbon Dioxide 27 (22-29) mmol/L Anion Gap 18 (12-20) BUN 33 H (9-16) mg/dL Creatinine 4.44 H* (0.5-1.4) mg/dL Estim Creat Clear Calc 9.4 Estimated GFR 10 POC Glucose (60-115) mg/dL Random Glucose 127 H (60-115) mg/dL Calcium 9.0 (8.4-10.2) mg/dL Magnesium 2.2 (1.6-2.6) mg/dL Total Bilirubin 0.4 (0.0-1.0) mg/dL AST 21 (5-31) U/L ALT < 5 (0-31) U/L Alkaline Phosphatase 223 H (39-117) U/L Total Protein 6.8 (6.5-8.0) g/dL Albumin 3.6 (3.5-5.0) g/dL Lipase 13 (8-78) U/L COVID-19 ([facility]) Negative (Negative) COVID-19 Clin Com See Note 08/30/22 08/30/22 Range/Units 19:20 20:22 WBC (4.8-10.8) X10*3/uL RBC (4.20-5.50) X10*6/uL Hgb (12.0-16.0) g/dl Hct (37.0-47.0) % MCV (80.0-98.0) fL MCH (27.0-33.0) pg MCHC (31.0-35.0) g/dl RDW (11.0-16.0) % Plt Count (160-400) X10*3/uL MPV (9.4-12.3) fL Immature Gran % (Auto) (0.0-0.4) % Neut % (Auto) (45-73) % Lymph % (Auto) (20-40) % Millard % (Auto) (2-11) % Eos % (Auto) (0-4) % Baso % (Auto) (0-2) % Lymph # (Auto) (1.2-4.9) X10*3/uL Millard # (Auto) (0.1-1.2) X10*3/uL Eos # (Auto) (0.0-0.4) X10*3/uL Baso # (Auto) (0.0-0.2) X10*3/uL Abs Immat Gran (auto) (0.00-0.03) X10*3/uL Absolute Neuts (auto) (2.0-8.3) x10*3/uL Absolute Nucleated RBC (0.0-0.012) X10*3/uL Nucleated RBC % (auto) (0.0-0.2) /100WBC VBG pH 7.46 H (7.32-7.43) VBG pCO2 47 mmHg VBG pO2 78 mmHg VBG HCO3 34 H (22-26) mmol/L VBG O2 Saturation 98.0 % VBG Base Excess 9.6 mmol/L Sodium (135-145) mmol/L Potassium (3.3-5.1) mmol/L Chloride (96-108) mmol/L Carbon Dioxide (22-29) mmol/L Anion Gap (12-20) BUN (9-16) mg/dL Creatinine (0.5-1.4) mg/dL Estim Creat Clear Calc Estimated GFR POC Glucose 122 H (60-115) mg/dL Random Glucose (60-115) mg/dL Calcium (8.4-10.2) mg/dL Magnesium (1.6-2.6) mg/dL Total Bilirubin (0.0-1.0) mg/dL AST (5-31) U/L ALT (0-31) U/L Alkaline Phosphatase (39-117) U/L Total Protein (6.5-8.0) g/dL Albumin (3.5-5.0) g/dL Lipase (8-78) U/L COVID-19 ([facility]) (Negative) COVID-19 Clin Com Independent Interpretation I performed an independent interpretation of an: EKG (unremarkable. ) and CT Scan (no acute findings ) Radiology Impression Discussion of test interpretation with radiology: I have reviewed the radiologist's reading. External Record Review External record reviewed: Inpatient record, Office record, Outpatient record, Prior outpatient labs, Prior outpatient radiology, Primary care record and Outside ED record Core Measures AMI core measures followed: Yes Measure exclusions: not indicated Critical Care Time Critical Care Time Critical Care Time: No Discharge Plan Discharge Clinical Impression: CKD (chronic kidney disease), Flank pain, Hypertensive urgency Patient Disposition: Admitted As Inpatient Interventions: Admission Worksheet (ED) Last Done: 08/31/22 04:27 Discharge Date/Time: 08/31/22 04:00
--- NOTE | 2022-08-30 17:11 | MHC.EDTECH ---
pt was change into hospital attire ,pt was hooked up to [employer] developer ,covid swab collected and sent to lab .this pct was unable to draw pt labs as pt a difficult draw mallorie,sancho Ovalle aware ,other pct will try .
[2022-08-30 17:15] LABS: COVID-19 Test Negative (Negative); IDNOW Serial# 08D9AD1C
[2022-08-30] MEDS: amLODIPine Besylate 10 MG TABLET PO (17:20)
--- NOTE | 2022-08-30 18:05 | MHC.EDTECH ---
sancho brown and dustin hurst is aware of pt high bp .
[2022-08-30 18:31] LABS: MANUAL DIFF FLAG NO
[2022-08-30 18:33] LABS: Basophils Percent Auto 0.5 % (0-2); Eosinophils Absolute Auto 0.3 X10*3/uL (0.0-0.4); Hematocrit 31.1 % (37.0-47.0); Imm Gran Abs Auto 0.02 X10*3/uL (0.00-0.03); Imm Gran Pct Auto 0.3 % (0.0-0.4); Lymphocytes Absolute Auto 1.1 X10*3/uL (1.2-4.9); Lymphocytes Percent Auto 18.3 % (20-40); Mean Corpuscular HGB Conc 32.2 g/dl (31.0-35.0); Mean Corpuscular Hemoglobin 30.6 pg (27.0-33.0); Mean Corpuscular Volume 95.1 fL (80.0-98.0); Mean Platelet Volume 10.1 fL (9.4-12.3); Monocytes Absolute Auto 0.6 X10*3/uL (0.1-1.2); Monocytes Percent Auto 10.1 % (2-11); Neutrophils Absolute Auto 3.9 x10*3/uL (2.0-8.3); Neutrophils Percent Auto 65.8 % (45-73); Platelet Count 223 X10*3/uL (160-400); Red Blood Count 3.27 X10*6/uL (4.20-5.50); Red Cell Distribution Width 14.8 % (11.0-16.0); White Blood Count 5.9 X10*3/uL (4.8-10.8)
[2022-08-30 18:48] LABS: Alanine Aminotransferase < 5 U/L (0-31); Albumin Level 3.6 g/dL (3.5-5.0); Alkaline Phosphatase 223 U/L (39-117); Anion Gap 18 (12-20); Aspartate Amino Transferase 21 U/L (5-31); Bilirubin Total 0.4 mg/dL (0.0-1.0); Blood Urea Nitrogen 33 mg/dL (9-16); Carbon Dioxide 27 mmol/L (22-29); Chloride 92 mmol/L (96-108); Creatinine Clr Calc Pharmacy 9.4; Estimated Glomerular Filt Rate 10; Glucose Random 127 mg/dL (60-115); Magnesium 2.2 mg/dL (1.6-2.6); Sodium 132 mmol/L (135-145); Total Protein 6.8 g/dL (6.5-8.0)
[2022-08-30 19:27] LABS: VBG Base Excess 9.6 mmol/L; VBG HCO3 34 mmol/L (22-26); VBG pCO2 47 mmHg; VBG pH 7.46 (7.32-7.43); VBG pO2 78 mmHg
[2022-08-30 19:28] LABS: Venous Blood Gas Refer to POC result
[2022-08-30] MEDS: Morphine Sulfate 2 MG/ML CARTRIDGE IVPUSH (19:41)
[2022-08-30 20:33] LABS: Glucose, Whole Blood 122 mg/dL (60-115)
--- NOTE | 2022-08-30 21:15 | PC.NURSE ---
late entry- this rn attempted to medicate pt. iv line infiltrated. this rn made aris chan aware. multiple providers and charger operator helper made attempted repeat iv line
--- NOTE | 2022-08-30 21:24 | MHC.EDTECH ---
PT WAS GIVEN A TURKEY SANDWICH AND KAYLA PATRICK FOR SNACK .
[2022-08-30 22:09] LABS: Lipase 13 U/L (8-78)
[2022-08-30] MEDS: Ondansetron ODT 4 MG TAB.RAPDIS TRANSLINGU (22:21)
--- NOTE | 2022-08-30 22:41 | PC.NURSE ---
This RN made two made attempts at IV insertion with US guidance with no success. Sandrine TAYLOR also attempted IV access with US with no success. ED provider made aware that pt has no access and meds due.
[2022-08-30] MEDS: Morphine Sulfate 4 MG/ML CARTRIDGE IVPUSH (23:13)
[2022-08-30] MEDS: Nitroglycerin 2 % Oint 1 GM Packet 1 INCH TRANSDERMA (23:13)
--- NOTE | 2022-08-30 23:21 | PC.NURSE ---
bp continues to be high 210/80 aris chan aware. pt medicated according to jeffry
--- NOTE | 2022-08-30 23:22 | PC.NURSE ---
dr fischer able to place us guided iv. pt medicated according to jul. pt denies n/v at this time and declines zofran. documented in jul accordingly
--- NOTE | 2022-08-30 23:25 | PC.NURSE ---
late entry- pt refusing straight cath at this time due to pain
[2022-08-30] MEDS: Labetalol HCL 100 MG/20 ML VIAL 10 MG IVPUSH (23:41)
[2022-08-31] VITALS (9 sets, daily range): BP systolic 156–199; BP diastolic 69–90; PULSE 66–82; RESP 16–20; TEMP 37–37.2; O2SAT 94–100
--- NOTE | 2022-08-31 00:28 | P.HPHOSP_ITS ---
History of Present Illness Date of Service: 08/31/22 Chief Complaint: Feeling unwell This is a 67-year-old female with pertinent history of COPD, end-stage renal disease on hemodialysis, essential hypertension, hpe-bznurnm-ueolzyryh diabetes mellitus who presents to the emergency department for evaluation of multiple complaints including left-sided abdominal pain. Patient states it started on the day of presentation and has been intermittent, nonradiating and without any relieving factors. She states she is compliant with home medications and hemodialysis although she is a poor historian and is unable to provide any specifics. Patient denies fever, chills, chest discomfort, palpitations, shortness of breath, changes in bowel habits In the emergency department, chest x-ray with nodular like opacity at the left mid lung. Blood pressure was found to be significantly elevated on admission. Review of Systems Constitutional: Constitutional: Reports fatigue and Reports malaise Cardiovascular: Cardiovascular: Reports no additional cardiovascular complaints Respiratory: Respiratory: Reports no additional respiratory complaints Gastrointestinal: Gastrointestinal: Reports abdominal pain Genitourinary: Genitourinary: Reports no additional female genitourinary complaints Endocrine: Endocrine: Reports fatigue PMFSH Medical History Acute exacerbation of chronic obstructive pulmonary disease (COPD) Acute GI bleeding Anasarca Anemia Anemia in chronic kidney disease Ascites Asthma with COPD with exacerbation Congestive heart failure with left ventricular dysfunction Constipation COVID COVID-19 virus infection Delirium Diabetes mellitus Dialysis patient, noncompliant End stage chronic kidney disease End stage renal disease on dialysis ESRD (end stage renal disease) ESRD (end stage renal disease) ESRD on dialysis Essential hypertension Fever Heart failure with preserved ejection fraction Hypertension Hypertrophic cardiomyopathy Ischemic colitis Leukocytosis Opioid withdrawal Pulmonary congestion Sepsis Tachycardia Family History Other Hypertension Surgical History No pertinent past surgical history Social History Household Members: Caregiver Housing: House Do you presently have visiting nurse or other home services: Yes Unable to assess alcohol history related to: Unknown Alcohol intake: never Patient Tobacco Use Status: Current everyday Tobacco user Tobacco use type: Cigarette Cigarette Packs Per Day: 1 Cigarettes Per Day: 1 Years Smoked: 18 Smoked in Last 30 Days: Yes e-Cigarette/Vaping Use: Never Used Second Hand Smoke Exposure: No Use of substances other than those prescribed or required for medical reasons: No Substance Use Type: Crack/Cocaine Advance Directives: Yes Advance Directives on File: Yes Advance Directives Date on File: 04/17/22 service: No Current occupational status: unemployed and disabled Meds Allergies Allergy/AdvReac Type Severity Reaction Status Date / Time No Known Allergies Allergy Mild NOT Verified 04/14/22 01:40 APPLICABLE Active Medications: Current Medications Pharmacy Consult (Consult Rx Perform Med Rec) 1 each MISCELLANE ONCE PRN PRN Reason: Consult order Home Medications Medication Instructions Recorded Confirmed Last Taken Type buprenorphine 8 mg-naloxone 2 mg 2 strip sublingual DAILY 10/22/20 08/07/22 05/06/22 History sublingual film (Suboxone) diltiazem HCl 180 mg 360 mg PO DAILY 10/22/20 08/07/22 05/06/22 History capsule,extended release 24 hr bumetanide 2 mg tablet 2 mg PO DAILY 04/15/21 08/07/22 05/06/22 History fluticasone propionate 110 1 puff inhalation BID 04/15/21 08/07/22 Unknown History mcg/actuation HFA aerosol inhaler (Flovent HFA) melatonin 5 mg tablet 5 mg PO BEDTIME PRN Sleep 04/15/21 08/07/22 Unknown History pantoprazole 40 mg tablet,delayed 40 mg PO DAILY 04/15/21 08/07/22 05/06/22 History release sennosides 8.6 mg tablet (senna) 1 - 2 tab PO BEDTIME PRN 05/11/21 08/07/22 Unknown History constipation aspirin 81 mg tablet,delayed 1 tab PO DAILY 10/11/21 08/07/22 05/06/22 History release albuterol sulfate 90 mcg/actuation 2 puff inhalation Q4H PRN wheezing 01/31/22 08/07/22 Unknown History aerosol inhaler (Ventolin HFA) ondansetron 4 mg disintegrating 4 mg PO BID PRN nausea and vomiting 03/09/22 08/07/22 Unknown History tablet carvedilol 6.25 mg tablet 1 tab PO BID 04/24/22 08/07/22 05/06/22 History albuterol sulfate 2.5 mg/3 mL 1 amp inhalation TID PRN Shortness 05/08/22 08/07/22 Unknown History (0.083 %) solution for nebulization Of Breath amlodipine 10 mg tablet 10 mg PO DAILY 07/10/22 08/07/22 Unknown History hydralazine 100 mg tablet 100 mg PO TID 07/10/22 08/07/22 Unknown History isosorbide dinitrate 30 mg tablet 30 mg PO TID 07/10/22 08/07/22 Unknown History nicotine 21 mg/24 hr daily 1 patch topical DAILY 08/07/22 08/07/22 Unknown History transdermal patch Physical Exam Vital Signs and Narrative: Vital Signs: Last Vital Signs Temp 98.3 F 08/30/22 23:56 Pulse 69 08/30/22 23:56 Resp 15 08/30/22 23:56 BP 188/77 H 08/30/22 23:56 Pulse Ox 100 08/30/22 20:00 O2 Del Method Room Air 08/30/22 23:56 BMI result Body Mass Index 23.6 Elderly female lying in bed in no distress Neck supple, no JVD Regular rate and rhythm, S1-S2 heard Decrease breath sounds at bases Abdomen distended nontender, no guarding, no rigidity Patient is awake, alert and oriented to self, place and time Psych: Normal mood Results Labs 08/30/22 18:25 08/30/22 18:25 Labs: Laboratory Results - last 24 hr 08/30/22 08/30/22 08/30/22 16:52 18:25 18:25 MCV 95.1 MCH 30.6 MCHC 32.2 RDW 14.8 Plt Count 223 MPV 10.1 Immature Gran % (Auto) 0.3 Neut % (Auto) 65.8 Lymph % (Auto) 18.3 L [place] % (Auto) 10.1 Eos % (Auto) 5.0 H Baso % (Auto) 0.5 Lymph # (Auto) 1.1 L [place] # (Auto) 0.6 Eos # (Auto) 0.3 Baso # (Auto) 0.0 Abs Immat Gran (auto) 0.02 Absolute Neuts (auto) 3.9 Absolute Nucleated RBC 0.000 Nucleated RBC % (auto) 0.0 VBG pH VBG pCO2 VBG pO2 VBG HCO3 VBG O2 Saturation VBG Base Excess Anion Gap 18 Estim Creat Clear Calc 9.4 Estimated GFR 10 POC Glucose Random Glucose 127 H Calcium 9.0 Magnesium 2.2 Total Bilirubin 0.4 AST 21 ALT < 5 Alkaline Phosphatase 223 H Total Protein 6.8 Albumin 3.6 Lipase 13 COVID-19 (KRYSTINA) Negative COVID-19 Clin Com See Note 08/30/22 08/30/22 19:20 20:22 MCV MCH MCHC RDW Plt Count MPV Immature Gran % (Auto) Neut % (Auto) Lymph % (Auto) [place] % (Auto) Eos % (Auto) Baso % (Auto) Lymph # (Auto) [place] # (Auto) Eos # (Auto) Baso # (Auto) Abs Immat Gran (auto) Absolute Neuts (auto) Absolute Nucleated RBC Nucleated RBC % (auto) VBG pH 7.46 H VBG pCO2 47 VBG pO2 78 VBG HCO3 34 H VBG O2 Saturation 98.0 VBG Base Excess 9.6 Anion Gap Estim Creat Clear Calc Estimated GFR POC Glucose 122 H Random Glucose Calcium Magnesium Total Bilirubin AST ALT Alkaline Phosphatase Total Protein Albumin Lipase COVID-19 (KRYSTINA) COVID-19 Clin Com Imaging Radiologist's Impressions: Impressions Abdomen/Pelvis CT 08/30/22 17:33 IMPRESSION: 1. A cause for the patient's left flank and lower back pain not been found. There is no nephrolithiasis at this time. 2. Incidental note made of hepatomegaly, stable compression fracture superior endplate L3, stable calcified right renal artery aneurysm and other findings described above. Fleischner guidelines were followed. Assessment and Plan (1) Hypertensive urgency: Status: Acute Plan This is a 67-year-old female with pertinent history of COPD, end-stage renal disease on hemodialysis, essential hypertension, bub-ewxvqxm-eghrrznpt diabetes mellitus who presents to the emergency department for evaluation of multiple complaints including left-sided abdominal pain. #. Hypertensive urgency/emergency: Patient given IV labetalol in the ER and 1 inch nitropaste. Resume home antihypertensives. Trend blood pressure and optimize. #. Abdominal discomfort likely due to Constipation: Administering Dulcolax and MiraLax. CT abdomen without acute abnormality #. Imaging with nodular like opacity in the left mid lung. CT chest with co ntrast pending to rule out malignancy #. ESRD on hemodialysis: Consulting Nephrology #. Chronic COPD: no acute exacerbation #. Opioid use disorder: On Suboxone Med rec pending Full Code Low-salt diet DVT prophylaxis: Lovenox 30 mg daily Time Spent With Patient Time: Total time managing care of this patient today ____ minutes. Quality Stroke Does the patient have a stroke diagnosis?: No VTE Prior VTE?: No VTE Risk Level:: Medical - moderate - high VTE Device Contraindication: Treatment Not Indicated VTE Drug Contraindication: N/A - Med Ordered
[2022-08-31] MEDS: fentaNYL citrate/PF 100 MCG/2 ML VIAL 25 MCG IVPUSH (00:55)
[2022-08-31] MEDS: Metoclopramide HCl 10 MG/2 ML VIAL IVPUSH (00:55)
[2022-08-31] MEDS: diphenhydrAMINE HCL 50 MG/ML VIAL 25 MG IVPUSH (00:55)
[2022-08-31] MEDS: Enoxaparin Sodium 30 MG/0.3 ML SYRINGE SUBCUT (00:56)
[2022-08-31] MEDS: Labetalol HCL 100 MG/20 ML VIAL 10 MG IVPUSH ×2 (01:38→06:43)
[2022-08-31] MEDS: iohexoL 350 MG/ML 100 ML INFUS..BTL 65 ML IV (01:56)
[2022-08-31] MEDS: HYDROmorphone HCl 1 MG/ML SYRINGE IVPUSH ×3 (02:06→21:04)
[2022-08-31] MEDS: polyethylene glycoL 3350 17 GM POWD.PACK PO (02:06)
[2022-08-31] MEDS: bisacodyL 10 MG SUPP.RECT PR (02:06)
--- NOTE | 2022-08-31 02:46 | PC.NURSE ---
Patient continues to complain of sharp, constant pain in her left flank despite receiving PRN medications for pain. Patient moaning and requesting additional medication to manage her pain. Patient also reports pain subsides after dialysis session. Dr. Daniel notified. prescribed Benadryl IV push and Zyprexa IM. informed this RN that patient will have nephrology consult and dialysis this am. CELIO Lundberg notified.
[2022-08-31] MEDS: OLANZapine 10 MG VIAL 5 MG IM (02:52)
[2022-08-31] MEDS: diphenhydrAMINE HCL 50 MG/ML VIAL IVPUSH ×2 (02:52→21:05)
--- NOTE | 2022-08-31 03:00 | PC.NURSE ---
late entry- pt continued to report 10/10 pain to this rn and additional rn. md dr golden made aware. pt presents extremely anxious due to pain and missed dialysis appointment. pt medicated according to jeffry. zyprexa 5mg im and benadryl 50mg iv push given to pt per md orders.
--- NOTE | 2022-08-31 03:05 | PC.NURSE ---
pt continues to report 10/10 pain. pt medicated according to mar. provided with warm blankets resting on stretcher
--- NOTE | 2022-08-31 03:07 | PC.NURSE ---
Addendum entered by Tamika Slater 08/31/22 03:26: aris chan made aware Original Note: med rec performed at this time
--- NOTE | 2022-08-31 07:31 | PC.NURSE ---
Assumed care of patient at this time
--- NOTE | 2022-08-31 08:07 | PHA.MEDREC ---
Pharmacy Consult ? Medication Reconciliation Pharmacy has completed the medication reconciliation. Pt is poor historian. Med rec complete using claim history and medical record.
[2022-08-31 08:28] LABS: MANUAL DIFF FLAG NO
[2022-08-31 08:33] LABS: Basophils Percent Auto 0.5 % (0-2); Eosinophils Absolute Auto 0.2 X10*3/uL (0.0-0.4); Eosinophils Percent Auto 3.7 % (0-4); Hematocrit 31.2 % (37.0-47.0); Imm Gran Abs Auto 0.02 X10*3/uL (0.00-0.03); Imm Gran Pct Auto 0.3 % (0.0-0.4); Lymphocytes Absolute Auto 1.2 X10*3/uL (1.2-4.9); Lymphocytes Percent Auto 18.6 % (20-40); Mean Corpuscular HGB Conc 32.1 g/dl (31.0-35.0); Mean Corpuscular Hemoglobin 30.4 pg (27.0-33.0); Mean Corpuscular Volume 94.8 fL (80.0-98.0); Monocytes Absolute Auto 0.6 X10*3/uL (0.1-1.2); Monocytes Percent Auto 9.3 % (2-11); Neutrophils Absolute Auto 4.4 x10*3/uL (2.0-8.3); Neutrophils Percent Auto 67.6 % (45-73); Platelet Count 195 X10*3/uL (160-400); Red Blood Count 3.29 X10*6/uL (4.20-5.50); Red Cell Distribution Width 14.8 % (11.0-16.0); White Blood Count 6.6 X10*3/uL (4.8-10.8)
[2022-08-31 08:56] LABS: Anion Gap 18 (12-20); Blood Urea Nitrogen 42 mg/dL (9-16); Calcium 8.8 mg/dL (8.4-10.2); Carbon Dioxide 26 mmol/L (22-29); Chloride 91 mmol/L (96-108); Creatinine Clr Calc Pharmacy 7.7; Estimated Glomerular Filt Rate 8; Glucose Random 108 mg/dL (60-115); Potassium 5.1 mmol/L (3.3-5.1); Sodium 130 mmol/L (135-145)
--- NOTE | 2022-08-31 09:09 | PC.NURSE ---
Patient to dialysis at this time
--- NOTE | 2022-08-31 09:42 | MHC.CM.PN ---
CM ATTEMPTED TO MEET W/PT VIA WEEKEND ANCHOR HOWEVER PT OFF UNIT, CM TO REVISIT.
[2022-08-31] MEDS: ondansetron HCL 4 MG/2 ML VIAL IVPUSH ×2 (10:39→21:04)
--- NOTE | 2022-08-31 13:41 | PM.EVENT ---
Event Note Date of Service: 08/31/22 Event Note: Chart reviewed patient examined. Agree with H and P and plan as outlined. Time Spent With Patient Time: Total time managing care of this patient today ____ minutes.
[2022-08-31] MEDS: Nicotine 21 MG PATCH.TD24 TRANSDERMA (14:08)
[2022-08-31] MEDS: dilTIAZem HCL CD 180 MG CAP.ER.24H 360 MG PO (14:09)
[2022-08-31] MEDS: Aspirin Enteric Coated 81 MG TABLET.DR PO (14:09)
[2022-08-31] MEDS: Isosorbide Dinitrate 10 MG TABLET 30 MG PO ×2 (14:09→21:06)
[2022-08-31] MEDS: Losartan Potassium 50 MG TABLET PO (14:09)
[2022-08-31] MEDS: Bumetanide 1 MG TABLET 2 MG PO (14:09)
[2022-08-31] MEDS: hydrALAZINE HCl 50 MG TABLET 100 MG PO ×2 (14:09→21:04)
[2022-08-31] MEDS: amLODIPine Besylate 10 MG TABLET PO (14:10)
[2022-08-31] MEDS: carvediloL 6.25 MG TABLET PO ×2 (14:10→21:05)
[2022-08-31] MEDS: Acetaminophen 325 MG TABLET 650 MG PO (14:10)
[2022-08-31] MEDS: Buprenorphine/Naloxone 8/2 mg FILM 1 FILM SUBLINGUAL (14:10)
[2022-08-31] MEDS: cloNIDine HCL 0.1 MG TABLET PO ×2 (14:10→21:06)
[2022-08-31] MEDS: diphenhydrAMINE HCL 25 MG CAPSULE PO (14:12)
--- NOTE | 2022-08-31 14:17 | PC.NURSE ---
Patient back from dialysis at this time
--- NOTE | 2022-08-31 15:02 | PM.CNNEP ---
History of Present Illness Reason for Consult Consult date: 08/31/22 Chief Complaint Chief complaint: Abdominal Discomfort History of Present Illness Narrative: 67-year-old female with end-stage renal disease on hemodialysis TTS presented to the emergency department for evaluation of multiple complaints including left-sided abdominal pain.? Patient states it started on the day of presentation and has been intermittent, non radiating and without any relieving factors.? She states she is compliant with home medications and hemodialysis although she is a poor historian and is unable to provide any specifics.? Patient denies fever, chills, chest discomfort, palpitations, shortness of breath, changes in bowel habits. In the emergency department, chest x-ray with nodular like opacity at the left mid lung.? Blood pressure was found to be significantly elevated on admission. She was due dialysis today. Nephrology has been consulted to assist in her clinical care during her current hospital stay Review of Systems Review of Systems Yes all other systems are reviewed and are negative PMFSH Past Medical History Medical History Acute exacerbation of chronic obstructive pulmonary disease (COPD) Acute GI bleeding Anasarca Anemia Anemia in chronic kidney disease Ascites Asthma with COPD with exacerbation Congestive heart failure with left ventricular dysfunction Constipation COVID COVID-19 virus infection Delirium Diabetes mellitus Dialysis patient, noncompliant End stage chronic kidney disease End stage renal disease on dialysis ESRD (end stage renal disease) ESRD (end stage renal disease) ESRD on dialysis Essential hypertension Fever Heart failure with preserved ejection fraction Hypertension Hypertrophic cardiomyopathy Ischemic colitis Leukocytosis Opioid withdrawal Pulmonary congestion Sepsis Tachycardia Family History Family History Other Hypertension Surgical History Surgical History No pertinent past surgical history Social History Social History Household Members: None Housing: Apartment Do you presently have visiting nurse or other home services: Yes Unable to assess alcohol history related to: Unknown Alcohol intake: never Patient Tobacco Use Status: Current everyday Tobacco user Tobacco use type: Cigarette Cigarette Packs Per Day: 1 Cigarettes Per Day: 2 Years Smoked: 18 e-Cigarette/Vaping Use: Former Use Second Hand Smoke Exposure: No Substance Use Type: Crack/Cocaine Advance Directives Date on File: 04/17/22 service: No Current occupational status: unemployed Meds Allergies Allergy/AdvReac Type Severity Reaction Status Date / Time No Known Allergies Allergy Mild NOT Verified 04/14/22 01:40 APPLICABLE Active Medications: Current Medications Acetaminophen (Acetaminophen 325 Mg Tablet) 650 mg PO Q6H PRN PRN Reason: Pain, Mild (Pain Scale 1-3) Last Admin: 08/31/22 14:10 Dose: 650 mg Acetaminophen (Acetaminophen Supp 650 Mg Supp.Rect) 650 mg MS Q6H PRN PRN Reason: Pain, Mild (Pain Scale 1-3) Albuterol Sulfate (Albuterol Sulfate (0.083%) 2.5 Mg/3 Ml Vial.Neb) 2.5 mg INHALE TID PRN PRN Reason: Shortness Of Breath Albuterol Sulfate (Albuterol Sulfate 90 Mcg 8 Gm Inhaler) 2 puff INHALE Q4H PRN PRN Reason: wheezing Albuterol/Ipratropium (Albuterol/Iprat 2.5/0.5mg 3 Ml Ampul.Neb) 3 ml INHALE Q4H PRN PRN Reason: Wheezing Amlodipine Besylate (Amlodipine Besylate 10 Mg Tablet) 10 mg PO DAILY [facility]; Protocol Last Admin: 08/31/22 14:10 Dose: 10 mg Aspirin (Aspirin Enteric Coated 81 Mg Tablet.Dr) 81 mg PO DAILY [facility] Last Admin: 08/31/22 14:09 Dose: 81 mg Bumetanide (Bumetanide 1 Mg Tablet) 2 mg PO DAILY [facility]; Protocol Last Admin: 08/31/22 14:09 Dose: 2 mg Buprenorphine/Naloxone (Buprenorphine/Naloxone 8/2 Mg Film) 1 film SUBLINGUAL DAILY [facility] Last Admin: 08/31/22 14:10 Dose: 1 film Carvedilol (Carvedilol 6.25 Mg Tablet) 6.25 mg PO BID [facility]; Protocol Last Admin: 08/31/22 14:10 Dose: 6.25 mg Clonidine HCl (Clonidine Hcl 0.1 Mg Tablet) 0.1 mg PO BID [facility]; Protocol Last Admin: 08/31/22 14:10 Dose: 0.1 mg Diltiazem HCl (Diltiazem Hcl Cd 180 Mg Cap.Er.24h) 360 mg PO DAILY [facility]; Protocol Last Admin: 08/31/22 14:09 Dose: 360 mg Diphenhydramine HCl (Diphenhydramine Hcl 25 Mg Capsule) 25 mg PO DAILY PRN PRN Reason: allergy symptoms Last Admin: 08/31/22 14:12 Dose: 25 mg Enoxaparin Sodium (Enoxaparin Sodium 30 Mg/0.3 Ml Syringe) 30 mg SUBCUT Q24H [facility] Last Admin: 08/31/22 00:56 Dose: 30 mg Heparin Sodium (Porcine) (Heparin Sodium,Porcine 5,000 Unit/Ml Vial) 5,000 unit INTRACATH TUTHSA@1645 [facility] Hydralazine HCl (Hydralazine Hcl 50 Mg Tablet) 100 mg PO TID [facility]; Protocol Last Admin: 08/31/22 14:23 Dose: Not Given Hydromorphone HCl (Hydromorphone Hcl 1 Mg/Ml Syringe) 1 mg IVPUSH Q4H PRN; Protocol PRN Reason: Pain, Severe (Pain Scale 7-10) Last Admin: 08/31/22 10:42 Dose: 1 mg Isosorbide Dinitrate (Isosorbide Dinitrate 10 Mg Tablet) 30 mg PO TID [facility]; Protocol Last Admin: 08/31/22 14:22 Dose: Not Given Losartan Potassium (Losartan Potassium 50 Mg Tablet) 50 mg PO DAILY [facility]; Protocol Last Admin: 08/31/22 14:09 Dose: 50 mg Melatonin (Melatonin 3 Mg Tablet) 6 mg PO BEDTIME PRN PRN Reason: Insomnia Melatonin (Melatonin 3 Mg Tablet) 3 mg PO BEDTIME PRN PRN Reason: Sleep Nicotine (Nicotine 21 Mg Patch.Td24) 21 mg TRANSDERMA DAILY [facility] Last Admin: 08/31/22 14:08 Dose: 21 mg Omeprazole (Omeprazole 20 Mg Capsule.Dr) 20 mg PO DAILY@0630 [facility] Ondansetron HCl (Ondansetron Hcl 4 Mg/2 Ml Vial) 4 mg IVPUSH Q8H PRN PRN Reason: Nausea and Vomiting Last Admin: 08/31/22 10:39 Dose: 4 mg Pharmacy Consult (Consult Rx Perform Med Rec) 1 each MISCELLANE ONCE PRN PRN Reason: Consult order Pharmacy Consult (Consult Rx Perform Med Rec) 1 each MISCELLANE ONCE PRN PRN Reason: Consult order Sodium Chloride (0.9 % Sodium Chloride Flush 3 Ml Syringe) 3 ml IVFLUSH QSHIFT [facility] Last Admin: 08/31/22 09:16 Dose: Not Given Home Medications Medication Instructions Recorded Confirmed Last Taken Type buprenorphine 8 mg-naloxone 2 mg 2 strip sublingual DAILY 10/22/20 08/31/22 05/06/22 History sublingual film (Suboxone) diltiazem HCl 180 mg 360 mg PO DAILY 10/22/20 08/31/22 05/06/22 History capsule,extended release 24 hr bumetanide 2 mg tablet 2 mg PO DAILY 04/15/21 08/31/22 05/06/22 History fluticasone propionate 110 1 puff inhalation BID 04/15/21 08/31/22 Unknown History mcg/actuation HFA aerosol inhaler (Flovent HFA) melatonin 5 mg tablet 5 mg PO BEDTIME PRN Sleep 04/15/21 08/31/22 Unknown History pantoprazole 40 mg tablet,delayed 40 mg PO DAILY@0630 04/15/21 08/31/22 05/06/22 History release sennosides 8.6 mg tablet (senna) 1 - 2 tab PO BEDTIME PRN 05/11/21 08/31/22 Unknown History constipation aspirin 81 mg tablet,delayed 1 tab PO DAILY 10/11/21 08/31/22 05/06/22 History release albuterol sulfate 90 mcg/actuation 2 puff inhalation Q4H PRN wheezing 01/31/22 08/31/22 Unknown History aerosol inhaler (Ventolin HFA) ondansetron 4 mg disintegrating 4 mg PO BID PRN nausea and vomiting 03/09/22 08/31/22 Unknown History tablet carvedilol 6.25 mg tablet 1 tab PO BID 04/24/22 08/31/22 05/06/22 History albuterol sulfate 2.5 mg/3 mL 1 amp inhalation TID PRN Shortness 05/08/22 08/31/22 Unknown History (0.083 %) solution for nebulization Of Breath amlodipine 10 mg tablet 10 mg PO DAILY 07/10/22 08/31/22 Unknown History hydralazine 100 mg tablet 100 mg PO TID 07/10/22 08/31/22 Unknown History isosorbide dinitrate 30 mg tablet 30 mg PO TID 07/10/22 08/31/22 Unknown History nicotine 21 mg/24 hr daily 1 patch topical DAILY 08/07/22 08/31/22 Unknown History transdermal patch diclofenac sodium 1 % topical gel 2 g topical BID 08/31/22 08/31/22 Unknown History vitamin B comp no.3-folic acid 1 1 tab PO DAILY 08/31/22 08/31/22 Unknown History mg-vit C 60 mg-biotin 300 mcg tablet (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-[facility]) Physical Exam Vital Signs: Last Vital Signs Temp 98.8 F 08/31/22 14:00 Pulse 82 08/31/22 14:00 Resp 16 08/31/22 14:00 BP 180/69 H 08/31/22 14:00 Pulse Ox 99 08/31/22 14:00 O2 Del Method Room Air 08/31/22 14:00 BMI result Body Mass Index 23.6 Const General: no acute distress Orientation/consciousness: patient oriented x3 Eyes EOM: EOMs intact bilaterally Neck Neck: Yes supple Resp Auscultation: diminished lung sounds Cardio Rate: regular rate GI Palpation (GI): Soft to palpation Neuro General: patient oriented x3 and moves all extremities Results Lab Results 08/31/22 07:47 08/31/22 07:47 Lab results: Chemistry 08/30/22 08/31/22 18:25 07:47 Sodium 132 L 130 L Potassium 5.0 D 5.1 Carbon Dioxide 27 26 BUN 33 H 42 H Creatinine 4.44 H* 5.45 H* Calcium 9.0 8.8 Hematology 08/30/22 08/31/22 18:25 07:47 WBC 5.9 6.6 Hgb 10.0 L 10.0 L Plt Count 223 195 Assessment and Plan (1) ESRD (end stage renal disease) on dialysis: Status: Acute Plan Dialysis dependent; Usually gets HD on TTS Has a functioning dialysis access Shall dialyze today; 2 Gm Na/2 Gm K/Phos restricted with fluid restriction Phos binders with meals. Shall optimize her BP medn after bringing her dry weight down Continue rest of current supportive management for now Procedures Date of Service Date of Service: 08/31/22
--- NOTE | 2022-08-31 15:10 | MHC.CM.PN ---
YUNI 08/31/22. D/C plan pt would like to return home with previous services. Pt uses a walker. Pt is Marshallese speaking and requires multi punch operator services. Pt has a GENERAL LEDGER ACCOUNTANT who will transport. PCP: Sammy Vicente Vax: pfizer x 1, moderna x 3
[2022-08-31 16:09] LABS: Glucose, Whole Blood 125 mg/dL (60-115)
[2022-08-31] MEDS: 0.9 % Sodium Chloride Flush 3 ML SYRINGE IVFLUSH ×2 (18:13→21:06)
[2022-08-31 20:03] LABS: Glucose, Whole Blood 155 mg/dL (60-115)
[2022-08-31] MEDS: Melatonin 3 MG TABLET 6 MG PO (21:05)
[2022-09-01] MEDS: Enoxaparin Sodium 30 MG/0.3 ML SYRINGE SUBCUT (00:51)
[2022-09-01 03:38] VITALS: BP 166/72; PULSE 76; RESP 18; TEMP 36.9; O2SAT 98
[2022-09-01] MEDS: Omeprazole 20 MG CAPSULE.DR PO (06:13)
[2022-09-01 07:20] VITALS: BP 140/70; PULSE 72; RESP 20; TEMP 36.9; O2SAT 99
[2022-09-01 07:39] LABS: Glucose, Whole Blood 130 mg/dL (60-115)
[2022-09-01] MEDS: Bumetanide 1 MG TABLET 2 MG PO (08:25)
[2022-09-01] MEDS: hydrALAZINE HCl 50 MG TABLET 100 MG PO (08:26)
[2022-09-01] MEDS: amLODIPine Besylate 10 MG TABLET PO (08:27)
[2022-09-01] MEDS: carvediloL 6.25 MG TABLET PO (08:27)
[2022-09-01] MEDS: Aspirin Enteric Coated 81 MG TABLET.DR PO (08:27)
[2022-09-01] MEDS: cloNIDine HCL 0.1 MG TABLET PO (08:27)
[2022-09-01] MEDS: dilTIAZem HCL CD 180 MG CAP.ER.24H 360 MG PO (08:28)
[2022-09-01] MEDS: Nicotine 21 MG PATCH.TD24 TRANSDERMA (08:28)
[2022-09-01] MEDS: Buprenorphine/Naloxone 8/2 mg FILM 1 FILM SUBLINGUAL (08:28)
[2022-09-01] MEDS: Losartan Potassium 50 MG TABLET PO (08:28)
[2022-09-01] MEDS: Isosorbide Dinitrate 10 MG TABLET 30 MG PO (08:28)
[2022-09-01] MEDS: 0.9 % Sodium Chloride Flush 3 ML SYRINGE IVFLUSH (08:35)
[2022-09-01] MEDS: ondansetron HCL 4 MG/2 ML VIAL IVPUSH (08:48)
--- NOTE | 2022-09-01 10:24 | MHC.CM.PN ---
EMR reviewed, per MD rounds pt to D/C home with resumption of previous services, pts HOME LIGHTING ADVISER to transport.
[2022-09-01 12:00] VITALS: BP 160/70; PULSE 66; RESP 16; TEMP 36.7; O2SAT 96
--- NOTE | 2022-09-01 12:10 | PM.DS ---
DS: Providers Provider Date of Service: 09/01/22 Date of admission: 08/31/22 00:26 Date of discharge: 09/01/22 Primary care physician: Sammy Vicente MD Consults: 08/31/22 00:36 Consult to Nephrology Routine Consulting Provider: Clive Lange Reason for consultation: esrd on hd DS: Diagnosis Discharge Diagnosis (1) ESRD (end stage renal disease) on dialysis: Status: Acute DS: Summary Hospital Course Hospital Course: ?67-year-old female with pertinent history of COPD, end-stage renal disease on hemodialysis, essential hypertension, [id number] diabetes mellitus who presents to the emergency department for evaluation of multiple complaints including left-sided abdominal pain.? Patient states it started on the day of presentation and has been intermittent, nonradiating and without any relieving factors.? She states she is compliant with home medications and hemodialysis although she is a poor historian and is unable to provide any specifics.? Patient denies fever, chills, chest discomfort, palpitations, shortness of breath, changes in bowel habits Hospital course Patient was admitted to the floor after general doses of IV labetalol and nitropaste. Home medications were resumed. She was seen in consultation by our renal and dialysis was performed. Workup for abdominal pain failed to demonstrate acute pathology and was thought to be related to constipation. Patient noted improvement in abdominal pain after bowel movement. At this point in time she is medically acceptable for discharge to home to follow up with PCP in 2 weeks and resume hemodialysis as outpatient Time Spent with Patient Time attestation: Total time managing care of this patient today ____ minutes. Discharge coordination time: Greater than 30 minutes Quality: Safe Use of Opioids Does Pt have an Active Cancer Diagnosis on the Problem List?: No Quality: Stroke Does the patient have a stroke diagnosis?: No Physical Exam Vital Signs: Vital Signs: Last Vital Signs Temp 98.5 F 09/01/22 07:20 Pulse 72 09/01/22 07:20 Resp 20 09/01/22 07:20 BP 140/70 H 09/01/22 07:20 Pulse Ox 99 09/01/22 07:20 O2 Del Method Room Air 09/01/22 07:20 BMI result Body Mass Index 23.6 Const: Other: Awake alert oriented x3 no acute distress Resp: Other: Clear to auscultation bilaterally no rales rhonchi or wheezes Cardio: Other: No S4; positive S1-S2; no S3 murmurs rubs or gallops GI: Other: Soft nontender nondistended normoactive bowel sounds Extrem: Other: No edema bilaterally DS: Data Data Completed and Pending Completed studies during hospitalization [Text1]: Procedures Assistance with Respiratory Ventilation, Less than 24 Consecutive Hours, Continuous Positive Airway Pressure (04/14/22) Excision of Left Kidney, Percutaneous Approach, Diagnostic (02/25/21) Excision of Right Kidney, Percutaneous Approach, Diagnostic (10/22/20) Fluoroscopy of Superior Vena Cava using Low Osmolar Contrast, Guidance (08/07/22) Insertion of Endotracheal Airway into Trachea, Via Natural or Artificial Opening (10/12/21) Insertion of Infusion Device into Right Atrium, Percutaneous Approach (08/07/22) Insertion of Infusion Device into Superior Vena Cava, Percutaneous Approach (08/07/22) Insertion of Tunneled Vascular Access Device into Chest Subcutaneous Tissue and Fascia, Percutaneous Approach (08/07/22) Performance of Urinary Filtration, Intermittent, Less than 6 Hours Per Day (08/07/22) Removal of Totally Implantable Vascular Access Device from Trunk Subcutaneous Tissue and Fascia, Open Approach (08/07/22) Respiratory Ventilation, 24-96 Consecutive Hours (10/12/21) Transfusion of Nonautologous Red Blood Cells into Peripheral Vein, Percutaneous Approach (02/25/21) Ultrasonography of Superior Vena Cava, Guidance (01/30/22) Labs on day of discharge: Laboratory Results - last 24 hr 08/31/22 08/31/22 09/01/22 15:20 19:18 07:30 POC Glucose 125 H 155 H 130 H Discharge Plan Discharge Anticipated Discharge Date/Time: 09/01/22 12:08 Patient Disposition: Home, Self-Care Discharge Diagnosis: Flank pain Referrals: [facility] [Outside] - 1 Day (Resumption of care) Physician,Unknown J [Physician] - 1 Week Discharge Medications: Continued buprenorphine-naloxone [Suboxone] 8-2 mg film 2 strip sublingual DAILY diltiazem HCl 180 mg capsule,extended release 24hr 360 mg PO DAILY docusate sodium [Colace] 100 mg capsule 100 mg PO BID PRN (Reason: Constipation) Qty: 30 0RF bumetanide 2 mg Tablet 2 mg PO DAILY pantoprazole 40 mg Tablet,Delayed Release (Dr/Ec) 40 mg PO DAILY@0630 melatonin 5 mg Tablet 5 mg PO BEDTIME PRN (Reason: Sleep) fluticasone propionate [Flovent HFA] 110 mcg/actuation Hfa Aerosol Inhaler 1 puff INHALATION BID sennosides [senna] 8.6 mg tablet 1 - 2 tab PO BEDTIME PRN (Reason: constipation) aspirin 81 mg tablet,delayed release (DR/EC) 1 tab PO DAILY albuterol sulfate [Ventolin HFA] 90 mcg/actuation HFA aerosol inhaler 2 puff INHALATION Q4H PRN (Reason: wheezing) ondansetron 4 mg tablet,disintegrating 4 mg PO BID PRN (Reason: nausea and vomiting) carvedilol 6.25 mg tablet 1 tab PO BID diphenhydramine HCl [Benadryl] 25 mg capsule 25 mg PO DAILY PRN (Reason: allergy symptoms) Qty: 30 0RF albuterol sulfate 2.5 mg /3 mL (0.083 %) solution for nebulization 1 amp inhalation TID PRN (Reason: Shortness Of Breath) lactulose 10 gram/15 mL solution 10 g PO DAILY PRN (Reason: constipation) Qty: 237 0RF isosorbide dinitrate 30 mg Tablet 30 mg PO TID Rx Instructions: allow nitrate-free interval of 12-14 hrs per 24-hr period amlodipine 10 mg tablet 10 mg PO DAILY Protocol: Hold for SBP< HOLD for SBP < : 90 Rx Instructions: replaces prior dose of 5 mg daily hydralazine 100 mg Tablet 100 mg PO TID nicotine 21 mg/24 hr patch 24 hour 1 patch topical DAILY losartan 50 mg Tablet 50 mg PO DAILY Qty: 30 0RF Protocol: Hold for SBP< HOLD for SBP < : 90 clonidine HCl 0.1 mg Tablet 0.1 mg PO BID Qty: 60 0RF Protocol: Hold for SBP< HOLD for SBP < : 90 diclofenac sodium 1 % gel 2 g topical BID Protocol: Apply to: Apply to: [employer] Rx 1-60-300 mg-mg-mcg tablet 1 tab PO DAILY Discharge Orders: Discharge Order (Routine); Ordered 09/01/22 Ordered By: Kalin Cabrera Diet: Advance to usual diet Activity on Discharge: As tolerated Stand Alone Forms: Patient Portal Discharge page Care Plan Goals: Resume all pre-hospital medicines Health Concerns: You need to be good about taking your meds every day to avoid issues Plan of Treatment: Follow-up with Renal ; hemodialysis as scheduled Assessment: See discharge summary Patient Instructions: Chronic Kidney Disease (ED), Flank Pain (ED)
== END 2022-09-01 14:04 | disposition home or self-care (01) ==
LOC: HO.ED 08-31 00:29 → HO.EDOVER 08-31 01:16 → HO.IMC 08-31 03:28
PROVIDERS: Physician Assistant; Admitting Provider Student in an Organized Health Care Education/Training Program; Emergency Provider Emergency Medicine; PCP Internal Medicine; Visit Provider Hospitalist
DX: R10.9 Unspecified abdominal pain (principal); M54.50 Low back pain, unspecified; I16.0 Hypertensive urgency; J44.9 Chronic obstructive pulmonary disease, unspecified; E11.22 Type 2 diabetes mellitus with diabetic chronic kidney disease; I13.2 Hypertensive heart and chronic kidney disease with heart failure and with stage 5 chronic kidney disease, or end stage renal disease; I50.1 Left ventricular failure, unspecified; N18.6 End stage renal disease; Z99.2 Dependence on renal dialysis; R91.8 Other nonspecific abnormal finding of lung field; F11.90 Opioid use, unspecified, uncomplicated
CPT/HCPCS: 36415; 71045; 71260; 74176; 80048; 80053; 82803; 82947; 83690; 83735; 85025; 87635; 90999; 93005; 96372; 96374; 96375; 96376; 99222; 99284; J1170; J1200; J1650; J2270; J2405; J2765; J3010; Q9967

== ENCOUNTER 2022-09-08 19:47 | Emergency (ER) | payer OTHER, SELFPAY ==
--- NOTE | ~2022-09-08 | US_ITS ---
EXAMINATION: US VENOUS ULTRASOUND WITH DOPPLER LOWER EXTREMITY, RIGHT CLINICAL INFORMATION: Pain behind right knee COMPARISON: None available. TECHNIQUE: Ultrasound of the deep veins is performed from the hip to the calf with compression sonography and color and pulse Doppler assessment. Spectral analysis with color-flow imaging is performed. FINDINGS: There is normal venous compression and respiratory variation and augmented flow. The visualized common femoral vein, superficial femoral vein, profunda femoral vein, popliteal vein, and the trifurcation region shows no evidence of deep venous thrombosis. There is a complex collection seen in the posterior medial aspect of the popliteal space measuring approximately 3.5 x 1.6 x 1.3 cm in size. If the patient's symptoms persist, followup ultrasound in 5 days 7 days might be of value to exclude proximal propagation from a non-visualized calf vein. US/US venous duplex LE RT IMPRESSION: No DVT demonstrated in the right lower extremity. Complex collection in the posterior medial popliteal space likely represents a complex Candelario's cyst.
--- NOTE | ~2022-09-08 | XR_ITS ---
EXAMINATION: XR KNEE, RIGHT CLINICAL INFORMATION: Pain COMPARISON: TECHNIQUE: Four views of the right knee. FINDINGS: Moderate-sized knee joint effusion is seen. Extensive tricompartmental degenerative changes are present with prominent osteophytosis. There is loss of joint space, subchondral sclerosis, and osteophyte formation more so in the medial compartment and patellofemoral compartment. I do not appreciate any acute superimposed fracture or dislocation. No bony destructive lesions. Prominent vascular calcification XR/XR knee RT 4V IMPRESSION: Extensive tricompartmental degenerative changes more so in the medial and patellofemoral compartments. Moderate-sized knee joint effusion.
[2022-09-08 20:05] VITALS: BP 133/68; BP 200/98; PULSE 80; PULSE 84; RESP 18; TEMP 37.2; O2SAT 97; O2SAT 98; BMI 27.9
--- NOTE | 2022-09-08 20:10 | ED_ITS ---
HPI - General Adult General Chief complaint: Extremity Problem <Tommy Eduardo - Last Filed: 09/08/22 20:12> Stated complaint: left knee pain <Tommy Eduardo - Last Filed: 09/08/22 20:12> Time Seen by Provider: 09/08/22 22:11 <Tommy Eduardo - Last Filed: 09/08/22 20:12> Source: patient <Lexa Rodarte MD - Last Filed: 09/09/22 02:37> Mode of arrival: ambulatory <Lexa Rodarte MD - Last Filed: 09/09/22 02:37> Limitations: no limitations <Lexa Rodarte MD - Last Filed: 09/09/22 02:37> History of Present Illness HPI narrative: 67-year-old female with history of end-stage renal disease on dialysis presents with right knee pain. Pain started this evening. Started acutely. There is no trauma, falls or injury. She denies any swelling. The pain is 8/10. The pain does not radiate. Worse with movement and palpation. Patient describes the pain as pressure and sharp in nature <Lexa Rodarte MD - Last Filed: 09/09/22 02:37> Related Data Home medications: Home Medications Medication Instructions Recorded Confirmed buprenorphine 8 mg-naloxone 2 mg 2 strip sublingual DAILY 10/22/20 08/31/22 sublingual film (Suboxone) diltiazem HCl 180 mg 360 mg PO DAILY 10/22/20 08/31/22 capsule,extended release 24 hr bumetanide 2 mg tablet 2 mg PO DAILY 04/15/21 08/31/22 fluticasone propionate 110 1 puff inhalation BID 04/15/21 08/31/22 mcg/actuation HFA aerosol inhaler (Flovent HFA) melatonin 5 mg tablet 5 mg PO BEDTIME PRN Sleep 04/15/21 08/31/22 pantoprazole 40 mg tablet,delayed 40 mg PO DAILY@0630 04/15/21 08/31/22 release sennosides 8.6 mg tablet (senna) 1 - 2 tab PO BEDTIME PRN 05/11/21 08/31/22 constipation aspirin 81 mg tablet,delayed 1 tab PO DAILY 10/11/21 08/31/22 release albuterol sulfate 90 mcg/actuation 2 puff inhalation Q4H PRN wheezing 01/31/22 08/31/22 aerosol inhaler (Ventolin HFA) ondansetron 4 mg disintegrating 4 mg PO BID PRN nausea and vomiting 03/09/22 08/31/22 tablet carvedilol 6.25 mg tablet 1 tab PO BID 04/24/22 08/31/22 albuterol sulfate 2.5 mg/3 mL 1 amp inhalation TID PRN Shortness 05/08/22 08/31/22 (0.083 %) solution for nebulization Of Breath amlodipine 10 mg tablet 10 mg PO DAILY 07/10/22 08/31/22 hydralazine 100 mg tablet 100 mg PO TID 07/10/22 08/31/22 isosorbide dinitrate 30 mg tablet 30 mg PO TID 07/10/22 08/31/22 nicotine 21 mg/24 hr daily 1 patch topical DAILY 08/07/22 08/31/22 transdermal patch diclofenac sodium 1 % topical gel 2 g topical BID 08/31/22 08/31/22 vitamin B comp no.3-folic acid 1 1 tab PO DAILY 08/31/22 08/31/22 mg-vit C 60 mg-biotin 300 mcg tablet ([employer]-[facility] Rx) Previous Rx's Medication Instructions Recorded docusate sodium 100 mg capsule 100 mg PO BID PRN Constipation #30 12/04/21 (Colace) caps diphenhydramine HCl 25 mg capsule 25 mg PO DAILY PRN allergy 04/30/22 (Benadryl) symptoms #30 caps lactulose 10 gram/15 mL oral 10 g (15 mL) PO DAILY PRN 07/03/22 solution constipation #237 mL clonidine HCl 0.1 mg tablet 0.1 mg PO BID #60 tabs 08/18/22 losartan 50 mg tablet 50 mg PO DAILY #30 tabs 08/18/22 prednisone 10 mg tablet 10 mg PO DAILY #5 tabs 09/09/22 <Tommy Eduardo - Last Filed: 09/08/22 20:12> Allergies/adverse reactions: Allergies Allergy/AdvReac Type Severity Reaction Status Date / Time No Known Allergies Allergy Mild NOT Verified 09/08/22 20:13 APPLICABLE <Tommy Eduardo - Last Filed: 09/08/22 20:12> [facility] Past Medical History Medical History: Medical History Acute exacerbation of chronic obstructive pulmonary disease (COPD) Acute GI bleeding Anasarca Anemia Anemia in chronic kidney disease Ascites Asthma with COPD with exacerbation Congestive heart failure with left ventricular dysfunction Constipation COVID COVID-19 virus infection Delirium Diabetes mellitus Dialysis patient, noncompliant End stage chronic kidney disease End stage renal disease on dialysis ESRD (end stage renal disease) ESRD (end stage renal disease) ESRD on dialysis Essential hypertension Fever Heart failure with preserved ejection fraction Hypertension Hypertrophic cardiomyopathy Ischemic colitis Leukocytosis Opioid withdrawal Pulmonary congestion Sepsis Tachycardia <Tommy Eduardo - Last Filed: 09/08/22 20:12> Surgical History: Surgical History No pertinent past surgical history <Tommy Eduardo - Last Filed: 09/08/22 20:12> Family History Family History: Family History Other Hypertension <Tommy Eduardo - Last Filed: 09/08/22 20:12> Social History Social History: Social History Household Members: None Housing: Apartment Do you presently have visiting nurse or other home services: Yes Unable to assess alcohol history related to: Unknown Alcohol intake: never Patient Tobacco Use Status: Current everyday Tobacco user Tobacco use type: Cigarette Cigarette Packs Per Day: 1 Cigarettes Per Day: 2 Years Smoked: 18 e-Cigarette/Vaping Use: Former Use Second Hand Smoke Exposure: No Substance Use Type: Crack/Cocaine Advance Directives: Yes Advance Directives on File: Yes Advance Directives Date on File: 04/17/22 service: No Current occupational status: disabled <Tommy Eduardo - Last Filed: 09/08/22 20:12> Physical Exam ED Vital Signs: Vital Signs - 24 hr 09/08/22 20:05 Temperature 99.0 F Pulse Rate 80 Respiratory Rate 18 Blood Pressure 133/68 Pulse Oximetry 97 Oxygen Delivery Method Room Air BMI result Body Mass Index 27.9 <Tommy Eduardo - Last Filed: 09/08/22 20:12> Vital Signs - 24 hr 09/08/22 20:05 Temperature 99.0 F Pulse Rate 80 Respiratory Rate 18 Blood Pressure 133/68 Pulse Oximetry 97 Oxygen Delivery Method Room Air BMI result Body Mass Index 27.9 <Lexa Rodarte MD - Last Filed: 09/09/22 02:37> GEN: Well developed, no acute distress, alert, oriented HEENT: Normocephalic, atraumatic, normal external ears, nose appears normal Eyes: Normal to appearance Neck: Supple, no lymphadenopathy Respiratory: Talks in complete sentences, no respiratory distress Extremities: No clubbing cyanosis or edema, right knee effusion, no erythematous changes, painful range of motion, tender throughout Neurologic: No focal neurologic deficits, cranial nerves 2-12 intact, gait normal Skin: No rash <Lexa Rodarte MD - Last Filed: 09/09/22 02:37> Course Course Course Narrative: 67-year-old past medical history significant for hypertension, hyperlipidemia, chronic kidney disease presents for evaluation right knee pain. Also complains of nausea vomiting. Patient has dialysis Sunday, , Sunday <Tommy Eduardo - Last Filed: 09/08/22 20:12> Reevaluation(s) Reevaluation #1: Patient is consented to an arthrocentesis. She has unilateral monoarticular arthritis. I doubt infectious etiology. Most likely inflammatory in nature. Ultrasound and CT scan show no acute traumatic injury. 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 <Lexa Rodarte MD - Last Filed: 09/09/22 02:37> Time: 22:49 <Lexa Rodarte MD - Last Filed: 09/09/22 02:37> Reevaluation #2: Arthrocentesis fluid revealed and no significant white blood cell count. There are less than 2000 wbc's. I doubt this represents septic arthritis. This point is likely inflammatory. Patient is on dialysis will avoid NSAIDs. Will treat P patient with a short course of oral steroids and analgesics. Recommending follow-up with her primary care provider and an orthopedist. <Lexa Rodarte MD - Last Filed: 09/09/22 02:37> Time: 02:36 <Lexa Rodarte MD - Last Filed: 09/09/22 02:37> Medications Administered Discontinued Medications Generic Name Dose Route Start Last Admin Trade Name Freq PRN Reason Stop Dose Admin Oxycodone HCl 5 mg 09/08/22 22:46 09/08/22 22:58 Oxycodone Hcl Immed Release 5 Mg Tablet PO 09/08/22 22:47 5 mg ONCE ONE Administration <Tommy Eduardo - Last Filed: 09/08/22 20:12> Medications Administered Discontinued Medications Generic Name Dose Route Start Last Admin Trade Name Goyo PRN Reason Stop Dose Admin Oxycodone HCl 5 mg 09/08/22 22:46 09/08/22 22:58 Oxycodone Hcl Immed Release 5 Mg Tablet PO 09/08/22 22:47 5 mg ONCE ONE Administration <Lexa Rodarte MD - Last Filed: 09/09/22 02:37> Procedures Joint Aspiration/Injection Joint Asp./Inject. 1: Time Out Performed: Yes <Lexa Rodarte MD - Last Filed: 09/09/22 02:37> Side of body: right <Lexa Rodarte MD - Last Filed: 09/09/22 02:37> Joint Aspirated: knee <Lexa Rodarte MD - Last Filed: 09/09/22 02:37> Ultrasound Guidance: No <Lexa Rodarte MD - Last Filed: 09/09/22 02:37> Skin Prep: Povidone-Iodine1% <Lexa Rodarte MD - Last Filed: 09/09/22 02:37> Local Anesthetic: lidocaine 1% <Lexa Rodarte MD - Last Filed: 09/09/22 02:37> Amount of anesthesia used (mL): 3 <Lexa Rodrate MD - Last Filed: 09/09/22 02:37> Needle Size Used: 20G <Lexa Rodarte MD - Last Filed: 09/09/22 02:37> Fluid Obtained: clear <Lexa Rodarte MD - Last Filed: 09/09/22 02:37> Total fluid obtained (mL): 6 <Lexa Rodarte MD - Last Filed: 09/09/22 02:37> Patient Tolerated Procedure: well <Lexa Rodarte MD - Last Filed: 09/09/22 02:37> Complications: none <Lexa Rodarte MD - Last Filed: 09/09/22 02:37> Medical Decision Making Medical Decision Making MDM Narrative: 67-year-old female presents with right knee pain. Differential diagnosis for monoarticular arthritis includes gout, pseudogout, trauma, fracture, hemarthrosis, septic arthritis, psoriatic arthritis, reactive arthritis, Brody's syndrome. Most likely this is inflammatory joint, possible pseudogout. Will obtain an arthrocentesis to rule out infectious etiology. <Lexa Rodarte MD - Last Filed: 09/09/22 02:37> Differential Diagnosis Differential Diagnoses: The differential diagnosis associated with the presentation includes (See above) <Lexa Rodarte MD - Last Filed: 09/09/22 02:37> Admission/Observation Consideration of admission/observation: Escalation of care including admission/observation considered <Lexa Rodarte MD - Last Filed: 09/09/22 02:37> Lab Data MDM Lab Attestation statement: I reviewed the patient's lab results. <Lexa Rodarte MD - Last Filed: 09/09/22 02:37> Result Diagrams: 09/08/22 21:32 09/08/22 21:32 <Tommy Eduardo - Last Filed: 09/08/22 20:12> Labs: Lab Results 09/08/22 09/08/22 09/09/22 Range/Units 21:32 21:32 00:39 WBC 6.9 (4.8-10.8) X10*3/uL RBC 3.51 L (4.20-5.50) X10*6/uL Hgb 10.9 L (12.0-16.0) g/dl Hct 33.6 L (37.0-47.0) % MCV 95.7 (80.0-98.0) fL MCH 31.1 (27.0-33.0) pg MCHC 32.4 (31.0-35.0) g/dl RDW 16.4 H (11.0-16.0) % Plt Count 326 D (160-400) X10*3/uL MPV 9.1 L (9.4-12.3) fL Immature Gran % (Auto) 0.3 (0.0-0.4) % Neut % (Auto) 66.7 (45-73) % Lymph % (Auto) 20.2 (20-40) % [place] % (Auto) 10.2 (2-11) % Eos % (Auto) 2.2 (0-4) % Baso % (Auto) 0.4 (0-2) % Lymph # (Auto) 1.4 (1.2-4.9) X10*3/uL [place] # (Auto) 0.7 (0.1-1.2) X10*3/uL Eos # (Auto) 0.2 (0.0-0.4) X10*3/uL Baso # (Auto) 0.0 (0.0-0.2) X10*3/uL Abs Immat Gran (auto) 0.02 (0.00-0.03) X10*3/uL Absolute Neuts (auto) 4.6 (2.0-8.3) x10*3/uL Absolute Nucleated RBC 0.020 H (0.0-0.012) X10*3/uL Nucleated RBC % (auto) 0.3 H (0.0-0.2) /100WBC Sodium 134 L (135-145) mmol/L Potassium 4.4 (3.3-5.1) mmol/L Chloride 91 L (96-108) mmol/L Carbon Dioxide 28 (22-29) mmol/L Anion Gap 19 (12-20) BUN 36 H (9-16) mg/dL Creatinine 5.72 H* (0.5-1.4) mg/dL Estim Creat Clear Calc 8.4 Estimated GFR 7 Random Glucose 197 H (60-115) mg/dL Calcium 9.1 (8.4-10.2) mg/dL Magnesium 2.4 (1.6-2.6) mg/dL Total Bilirubin 0.4 (0.0-1.0) mg/dL AST 20 (5-31) U/L ALT < 5 (0-31) U/L Alkaline Phosphatase 256 H (39-117) U/L Total Protein 7.7 (6.5-8.0) g/dL Albumin 4.2 (3.5-5.0) g/dL Lipase 11 (8-78) U/L Synovial Source right knee Synovial WBC 0.182 X10*3/uL Synovial RBC 0.084 X10*6/uL Synovial Neutrophils 19 % Synovial Lymphocytes 12 % Synovial Monocytes 4 % Synovial Eosinophils 1 % <Tommy Eduardo - Last Filed: 09/08/22 20:12> Lab Results 09/08/22 09/08/22 09/09/22 Range/Units 21:32 21:32 00:39 WBC 6.9 (4.8-10.8) X10*3/uL RBC 3.51 L (4.20-5.50) X10*6/uL Hgb 10.9 L (12.0-16.0) g/dl Hct 33.6 L (37.0-47.0) % MCV 95.7 (80.0-98.0) fL MCH 31.1 (27.0-33.0) pg MCHC 32.4 (31.0-35.0) g/dl RDW 16.4 H (11.0-16.0) % Plt Count 326 D (160-400) X10*3/uL MPV 9.1 L (9.4-12.3) fL Immature Gran % (Auto) 0.3 (0.0-0.4) % Neut % (Auto) 66.7 (45-73) % Lymph % (Auto) 20.2 (20-40) % [place] % (Auto) 10.2 (2-11) % Eos % (Auto) 2.2 (0-4) % Baso % (Auto) 0.4 (0-2) % Lymph # (Auto) 1.4 (1.2-4.9) X10*3/uL [place] # (Auto) 0.7 (0.1-1.2) X10*3/uL Eos # (Auto) 0.2 (0.0-0.4) X10*3/uL Baso # (Auto) 0.0 (0.0-0.2) X10*3/uL Abs Immat Gran (auto) 0.02 (0.00-0.03) X10*3/uL Absolute Neuts (auto) 4.6 (2.0-8.3) x10*3/uL Absolute Nucleated RBC 0.020 H (0.0-0.012) X10*3/uL Nucleated RBC % (auto) 0.3 H (0.0-0.2) /100WBC Sodium 134 L (135-145) mmol/L Potassium 4.4 (3.3-5.1) mmol/L Chloride 91 L (96-108) mmol/L Carbon Dioxide 28 (22-29) mmol/L Anion Gap 19 (12-20) BUN 36 H (9-16) mg/dL Creatinine 5.72 H* (0.5-1.4) mg/dL Estim Creat Clear Calc 8.4 Estimated GFR 7 Random Glucose 197 H (60-115) mg/dL Calcium 9.1 (8.4-10.2) mg/dL Magnesium 2.4 (1.6-2.6) mg/dL Total Bilirubin 0.4 (0.0-1.0) mg/dL AST 20 (5-31) U/L ALT < 5 (0-31) U/L Alkaline Phosphatase 256 H (39-117) U/L Total Protein 7.7 (6.5-8.0) g/dL Albumin 4.2 (3.5-5.0) g/dL Lipase 11 (8-78) U/L Synovial Source right knee Synovial WBC 0.182 X10*3/uL Synovial RBC 0.084 X10*6/uL Synovial Neutrophils 19 % Synovial Lymphocytes 12 % Synovial Monocytes 4 % Synovial Eosinophils 1 % <Lexa Rodarte MD - Last Filed: 09/09/22 02:37> Independent Interpretation I performed an independent interpretation of an: Plain X-Ray (Left knee: No osseous injury) and Ultrasound <Lexa Rodarte MD - Last Filed: 09/09/22 02:37> Radiology Impression Discussion of test interpretation with radiology: I have reviewed the radiologist's reading. ( XR/XR knee RT 4V IMPRESSION: Extensive tricompartmental degenerative changes more so in the medial and patellofemoral compartments. Moderate-sized knee joint effusion. Dictated By:Benjie Childress MDSigned By:<Electronically signed by Benjie Childress MD in [place]>09/08) <Lexa Rodarte MD - Last Filed: 09/09/22 02:37> Radiologist Impression: US/US venous duplex LE RT IMPRESSION: No DVT demonstrated in the right lower extremity. Complex collection in the posterior medial popliteal space likely represents a complex Candelario's cyst. Dictated By: Benjie Childress MD Signed By: <Electronically signed by Benjie Childress MD in [place]> 09/08/22 2146 <Lexa Rodarte MD - Last Filed: 09/09/22 02:37> Tests considered The following testing was considered but not selected: CT scan <Lexa Rodarte MD - Last Filed: 09/09/22 02:37> Prescription Management I considered prescription management with: Pain Medication and Antibiotic <Lexa Rodarte MD - Last Filed: 09/09/22 02:37> Discharge Plan Discharge Clinical Impression: Acute pain of right knee, Candelario cyst <Tommy Eduardo - Last Filed: 09/08/22 20:12> Patient Disposition: Home, Self-Care <Tommy Eduardo - Last Filed: 09/08/22 20:12> Instructions: [place] Cyst (ED), Knee Pain (ED) <Tommy Eduardo - Last Filed: 09/08/22 20:12> Prescriptions: New prednisone 10 mg tablet 10 mg PO DAILY Qty: 5 0RF No Action buprenorphine-naloxone [Suboxone] 8-2 mg film 2 strip sublingual DAILY diltiazem HCl 180 mg capsule,extended release 24hr 360 mg PO DAILY docusate sodium [Colace] 100 mg capsule 100 mg PO BID PRN (Reason: Constipation) Qty: 30 0RF bumetanide 2 mg Tablet 2 mg PO DAILY pantoprazole 40 mg Tablet,Delayed Release (Dr/Ec) 40 mg PO DAILY@0630 melatonin 5 mg Tablet 5 mg PO BEDTIME PRN (Reason: Sleep) fluticasone propionate [Flovent HFA] 110 mcg/actuation Hfa Aerosol Inhaler 1 puff INHALATION BID sennosides [senna] 8.6 mg tablet 1 - 2 tab PO BEDTIME PRN (Reason: constipation) aspirin 81 mg tablet,delayed release (DR/EC) 1 tab PO DAILY albuterol sulfate [Ventolin HFA] 90 mcg/actuation HFA aerosol inhaler 2 puff INHALATION Q4H PRN (Reason: wheezing) ondansetron 4 mg tablet,disintegrating 4 mg PO BID PRN (Reason: nausea and vomiting) carvedilol 6.25 mg tablet 1 tab PO BID diphenhydramine HCl [Benadryl] 25 mg capsule 25 mg PO DAILY PRN (Reason: allergy symptoms) Qty: 30 0RF albuterol sulfate 2.5 mg /3 mL (0.083 %) solution for nebulization 1 amp inhalation TID PRN (Reason: Shortness Of Breath) lactulose 10 gram/15 mL solution 10 g PO DAILY PRN (Reason: constipation) Qty: 237 0RF isosorbide dinitrate 30 mg Tablet 30 mg PO TID Rx Instructions: allow nitrate-free interval of 12-14 hrs per 24-hr period amlodipine 10 mg tablet 10 mg PO DAILY Protocol: Hold for SBP< HOLD for SBP < : 90 Rx Instructions: replaces prior dose of 5 mg daily hydralazine 100 mg Tablet 100 mg PO TID nicotine 21 mg/24 hr patch 24 hour 1 patch topical DAILY losartan 50 mg Tablet 50 mg PO DAILY Qty: 30 0RF Protocol: Hold for SBP< HOLD for SBP < : 90 clonidine HCl 0.1 mg Tablet 0.1 mg PO BID Qty: 60 0RF Protocol: Hold for SBP< HOLD for SBP < : 90 diclofenac sodium 1 % gel 2 g topical BID Protocol: Apply to: Apply to: [employer] Rx 1-60-300 mg-mg-mcg tablet 1 tab PO DAILY <Tommy Eduardo - Last Filed: 09/08/22 20:12> Referrals: Estephania Silver MD [Physician] - 1 week Physician,Unknown J [Primary Care Provider] - (PCP 1 week) <Tommy Eduardo - Last Filed: 09/08/22 20:12>
[2022-09-08 21:38] LABS: MANUAL DIFF FLAG NO
[2022-09-08 21:40] LABS: Basophils Percent Auto 0.4 % (0-2); Eosinophils Absolute Auto 0.2 X10*3/uL (0.0-0.4); Eosinophils Percent Auto 2.2 % (0-4); Hematocrit 33.6 % (37.0-47.0); Hemoglobin 10.9 g/dl (12.0-16.0); Imm Gran Abs Auto 0.02 X10*3/uL (0.00-0.03); Imm Gran Pct Auto 0.3 % (0.0-0.4); Lymphocytes Absolute Auto 1.4 X10*3/uL (1.2-4.9); Lymphocytes Percent Auto 20.2 % (20-40); Mean Corpuscular HGB Conc 32.4 g/dl (31.0-35.0); Mean Corpuscular Hemoglobin 31.1 pg (27.0-33.0); Mean Corpuscular Volume 95.7 fL (80.0-98.0); Mean Platelet Volume 9.1 fL (9.4-12.3); Monocytes Absolute Auto 0.7 X10*3/uL (0.1-1.2); Monocytes Percent Auto 10.2 % (2-11); NRBC Pct Auto 0.3 /100WBC (0.0-0.2); Neutrophils Absolute Auto 4.6 x10*3/uL (2.0-8.3); Neutrophils Percent Auto 66.7 % (45-73); Platelet Count 326 X10*3/uL (160-400); Red Blood Count 3.51 X10*6/uL (4.20-5.50); Red Cell Distribution Width 16.4 % (11.0-16.0); White Blood Count 6.9 X10*3/uL (4.8-10.8)
[2022-09-08 22:26] LABS: Alanine Aminotransferase < 5 U/L (0-31); Albumin Level 4.2 g/dL (3.5-5.0); Alkaline Phosphatase 256 U/L (39-117); Anion Gap 19 (12-20); Aspartate Amino Transferase 20 U/L (5-31); Bilirubin Total 0.4 mg/dL (0.0-1.0); Blood Urea Nitrogen 36 mg/dL (9-16); Calcium 9.1 mg/dL (8.4-10.2); Carbon Dioxide 28 mmol/L (22-29); Chloride 91 mmol/L (96-108); Creatinine Clr Calc Pharmacy 8.4; Estimated Glomerular Filt Rate 7; Glucose Random 197 mg/dL (60-115); Lipase 11 U/L (8-78); Magnesium 2.4 mg/dL (1.6-2.6); Potassium 4.4 mmol/L (3.3-5.1); Sodium 134 mmol/L (135-145); Total Protein 7.7 g/dL (6.5-8.0)
[2022-09-08] MEDS: oxyCODONE HCl Immed Release 5 MG TABLET PO (22:58)
[2022-09-09 00:49] LABS: Source Synovial Fluid right knee
[2022-09-09 00:54] LABS: MN% 49.5 %; PMN% 50.5 %; RBC Synovial Fluid 0.084 X10*6/uL; WBC Synovial Fluid 0.182 X10*3/uL
[2022-09-09 01:45] LABS: BF Shift QC OK YES
[2022-09-09 01:54] LABS: Eosinophils Synovial Fluid 1 %; Lymphocytes Synovial Fluid 12 %; Monocytes Synovial Fluid 4 %; Neutrophils Synovial Fluid 19 %
[2022-09-09 03:01] VITALS: BP 167/77; PULSE 77; RESP 18; TEMP 36.9; O2SAT 99
[2022-09-09] MEDS: predniSONE 10 MG TABLET PO (03:09)
--- NOTE | 2022-09-09 03:10 | PC.NURSE ---
Pt provided with cranberry juice, sandwich and pudding per request.
[2022-09-11 08:43] LABS: Glucose Synovial Fluid 128 MG/DL; Total Protein Synovial Fluid 2.4 GM/DL
== END 2022-09-09 03:15 | disposition home or self-care (01) ==
PROVIDERS: Physician Assistant; Emergency Provider Emergency Medicine
DX: M71.21 Synovial cyst of popliteal space [Baker], right knee (principal); R60.0 Localized edema; I10 Essential (primary) hypertension; M25.561 Pain in right knee; F17.210 Nicotine dependence, cigarettes, uncomplicated; Z71.6 Tobacco abuse counseling; Z79.899 Other long term (current) drug therapy
CPT/HCPCS: 20611; 36415; 73564; 80053; 82945; 83690; 83735; 84157; 85025; 87070; 87073; 87205; 89051; 89060; 93971; 99284; 99285

== ENCOUNTER 2022-09-29 15:56 | Emergency (ER) | payer OTHER, SELFPAY ==
--- NOTE | ~2022-09-29 | XR_ITS ---
EXAMINATION: XR ABDOMEN KUB CLINICAL INDICATION: Constipation COMPARISON: None available. TECHNIQUE: AP view of the abdomen. FINDINGS: The bowel gas pattern is normal with no evidence of ileus or obstruction. Moderate volume of stool throughout colon. Largest collection of stool is in the content and ascending colon. No unusual soft tissue calcifications are noted. Surgical clips right upper quadrant of abdomen The bones are unremarkable. XR/XR KUB IMPRESSION: Moderate volume of stool in colon. Nonobstructive bowel pattern.
[2022-09-29 16:04] VITALS: BP 150/70; BP 165/79; PULSE 75; PULSE 80; RESP 18; TEMP 36.7; O2SAT 98; BMI 25.3
--- NOTE | 2022-09-29 16:08 | PC.NURSE ---
pt comes to ER reporting left flank pain and LUQ pain. Pt says they have not urinated or had a BM in 5 days. pt is on dialysis and does say that she makes urine before 5 days ago.
--- NOTE | 2022-09-29 16:17 | ED_ITS ---
HPI - Abdominal Pain General Chief Complaint: Abdominal Pain Stated Complaint: left flank pain Time Seen by Provider: 09/29/22 16:12 Source: patient Mode of arrival: ambulatory Limitations: no limitations History of Present Illness HPI narrative: Patient with history of end-stage renal disease on dialysis chronic constipation chronic abdominal pain and flank pain does not make any urine comes here for similar pain as in the past left flank and abdominal fullness unable to move her bowels for last 5 days passing flatus no fever no chills no nausea no vomiting Related Data Home Medications Medication Instructions Recorded Confirmed buprenorphine 8 mg-naloxone 2 mg 2 strip sublingual DAILY 10/22/20 08/31/22 sublingual film (Suboxone) diltiazem HCl 180 mg 360 mg PO DAILY 10/22/20 08/31/22 capsule,extended release 24 hr bumetanide 2 mg tablet 2 mg PO DAILY 04/15/21 08/31/22 fluticasone propionate 110 1 puff inhalation BID 04/15/21 08/31/22 mcg/actuation HFA aerosol inhaler (Flovent HFA) melatonin 5 mg tablet 5 mg PO BEDTIME PRN Sleep 04/15/21 08/31/22 pantoprazole 40 mg tablet,delayed 40 mg PO DAILY@0630 04/15/21 08/31/22 release sennosides 8.6 mg tablet (senna) 1 - 2 tab PO BEDTIME PRN 05/11/21 08/31/22 constipation aspirin 81 mg tablet,delayed 1 tab PO DAILY 10/11/21 08/31/22 release albuterol sulfate 90 mcg/actuation 2 puff inhalation Q4H PRN wheezing 01/31/22 08/31/22 aerosol inhaler (Ventolin HFA) ondansetron 4 mg disintegrating 4 mg PO BID PRN nausea and vomiting 03/09/22 08/31/22 tablet carvedilol 6.25 mg tablet 1 tab PO BID 04/24/22 08/31/22 albuterol sulfate 2.5 mg/3 mL 1 amp inhalation TID PRN Shortness 05/08/22 08/31/22 (0.083 %) solution for nebulization Of Breath amlodipine 10 mg tablet 10 mg PO DAILY 07/10/22 08/31/22 hydralazine 100 mg tablet 100 mg PO TID 07/10/22 08/31/22 isosorbide dinitrate 30 mg tablet 30 mg PO TID 07/10/22 08/31/22 nicotine 21 mg/24 hr daily 1 patch topical DAILY 08/07/22 08/31/22 transdermal patch diclofenac sodium 1 % topical gel 2 g topical BID 08/31/22 08/31/22 vitamin B comp no.3-folic acid 1 1 tab PO DAILY 08/31/22 08/31/22 mg-vit C 60 mg-biotin 300 mcg tablet ([facility] [employer] [facility]) Previous Rx's Medication Instructions Recorded docusate sodium 100 mg capsule 100 mg PO BID PRN Constipation #30 12/04/21 (Colace) caps diphenhydramine HCl 25 mg capsule 25 mg PO DAILY PRN allergy 04/30/22 (Benadryl) symptoms #30 caps lactulose 10 gram/15 mL oral 10 g (15 mL) PO DAILY PRN 07/03/22 solution constipation #237 mL clonidine HCl 0.1 mg tablet 0.1 mg PO BID #60 tabs 08/18/22 losartan 50 mg tablet 50 mg PO DAILY #30 tabs 08/18/22 prednisone 10 mg tablet 10 mg PO DAILY #5 tabs 09/09/22 polyethylene glycol 3350 17 17 g PO DAILY #510 grams 09/29/22 gram/dose oral powder (Miralax) Allergies Allergy/AdvReac Type Severity Reaction Status Date / Time No Known Allergies Allergy Mild NOT Verified 09/08/22 20:13 APPLICABLE Review of Systems Review of Systems Yes all other systems are reviewed and are negative [facility] Past Medical History Medical History Acute exacerbation of chronic obstructive pulmonary disease (COPD) Acute GI bleeding Anasarca Anemia Anemia in chronic kidney disease Ascites Asthma with COPD with exacerbation Congestive heart failure with left ventricular dysfunction Constipation COVID COVID-19 virus infection Delirium Diabetes mellitus Dialysis patient, noncompliant End stage chronic kidney disease End stage renal disease on dialysis ESRD (end stage renal disease) ESRD (end stage renal disease) ESRD on dialysis Essential hypertension Fever Heart failure with preserved ejection fraction Hypertension Hypertrophic cardiomyopathy Ischemic colitis Leukocytosis Opioid withdrawal Pulmonary congestion Sepsis Tachycardia Surgical History No pertinent past surgical history Family History Family History Other Hypertension Social History Social History Household Members: None Housing: Apartment Do you presently have visiting nurse or other home services: Yes Unable to assess alcohol history related to: Unknown Alcohol intake: never Patient Tobacco Use Status: Current everyday Tobacco user Tobacco use type: Cigarette Cigarette Packs Per Day: 1 Cigarettes Per Day: 2 Years Smoked: 18 Smoked in Last 30 Days: Yes e-Cigarette/Vaping Use: Former Use Second Hand Smoke Exposure: No Use of substances other than those prescribed or required for medical reasons: No Substance Use Type: Crack/Cocaine Advance Directives: Yes Advance Directives on File: Yes Advance Directives Date on File: 04/17/22 service: No Current occupational status: disabled Physical Exam ED Vital Signs: Vital Signs - 24 hr 09/29/22 16:04 Temperature 98.0 F Pulse Rate 75 Respiratory Rate 18 Blood Pressure 165/79 H Pulse Oximetry 98 Oxygen Delivery Method Room Air BMI result Body Mass Index 25.3 Appearance: Alert. Oriented X3. No acute distress. Eyes: PERRLA, No Nystagmus ENT: Pharynx normal. Oral Mucosa moist Neck: Normal inspection. Neck supple. CVS: Normal heart rate and rhythm. Pulses normal. Respiratory: No respiratory distress. Equal air entry bilateral, no wheezing/rales/rhonchi Abdomen: Soft mild tenderness diffuse. Bowel sounds are present, no mass palpable, no CVA tenderness Skin: Skin warm and dry. Normal skin color. Normal skin turgor. Extremities: No lower extremity edema. No calf tenderness Neuro: Oriented X 3. No motor deficit. Medical Decision Making Radiology Impression Discussion of test interpretation with radiology: I have reviewed the radiologist's reading. Radiologist Impression: XR/XR KUB IMPRESSION: Moderate volume of stool in colon. Nonobstructive bowel pattern. Medications Administered Discontinued Medications Generic Name Dose Route Start Last Admin Trade Name Freq PRN Reason Stop Dose Admin Bisacodyl 10 mg 09/29/22 16:34 09/29/22 16:47 Bisacodyl 5 Mg Tablet.Dr PO 09/29/22 16:35 10 mg ONCE ONE Administration Magnesium Hydroxide 30 ml 09/29/22 16:34 09/29/22 16:48 Milk Of Magnesia 30 Ml Oral.Susp PO 09/29/22 16:35 30 ml ONCE ONE Administration Oxycodone HCl 10 mg 09/29/22 16:34 09/29/22 16:48 Oxycodone Hcl Immed Release 5 Mg Tablet PO 09/29/22 16:35 10 mg ONCE ONE Administration Discharge Plan Discharge Clinical Impression: Constipation Patient Disposition: Home, Self-Care Instructions: Constipation (ED) Additional Instructions: Take Tylenol for pain Stool softener as advised Prescriptions: New polyethylene glycol 3350 [Miralax] 17 gram/dose powder 17 g PO DAILY Qty: 510 0RF No Action buprenorphine-naloxone [Suboxone] 8-2 mg film 2 strip sublingual DAILY diltiazem HCl 180 mg capsule,extended release 24hr 360 mg PO DAILY docusate sodium [Colace] 100 mg capsule 100 mg PO BID PRN (Reason: Constipation) Qty: 30 0RF bumetanide 2 mg Tablet 2 mg PO DAILY pantoprazole 40 mg Tablet,Delayed Release (Dr/Ec) 40 mg PO DAILY@0630 melatonin 5 mg Tablet 5 mg PO BEDTIME PRN (Reason: Sleep) fluticasone propionate [Flovent HFA] 110 mcg/actuation Hfa Aerosol Inhaler 1 puff INHALATION BID sennosides [senna] 8.6 mg tablet 1 - 2 tab PO BEDTIME PRN (Reason: constipation) aspirin 81 mg tablet,delayed release (DR/EC) 1 tab PO DAILY albuterol sulfate [Ventolin HFA] 90 mcg/actuation HFA aerosol inhaler 2 puff INHALATION Q4H PRN (Reason: wheezing) ondansetron 4 mg tablet,disintegrating 4 mg PO BID PRN (Reason: nausea and vomiting) carvedilol 6.25 mg tablet 1 tab PO BID diphenhydramine HCl [Benadryl] 25 mg capsule 25 mg PO DAILY PRN (Reason: allergy symptoms) Qty: 30 0RF albuterol sulfate 2.5 mg /3 mL (0.083 %) solution for nebulization 1 amp inhalation TID PRN (Reason: Shortness Of Breath) lactulose 10 gram/15 mL solution 10 g PO DAILY PRN (Reason: constipation) Qty: 237 0RF isosorbide dinitrate 30 mg Tablet 30 mg PO TID Rx Instructions: allow nitrate-free interval of 12-14 hrs per 24-hr period amlodipine 10 mg tablet 10 mg PO DAILY Protocol: Hold for SBP< HOLD for SBP < : 90 Rx Instructions: replaces prior dose of 5 mg daily hydralazine 100 mg Tablet 100 mg PO TID nicotine 21 mg/24 hr patch 24 hour 1 patch topical DAILY losartan 50 mg Tablet 50 mg PO DAILY Qty: 30 0RF Protocol: Hold for SBP< HOLD for SBP < : 90 clonidine HCl 0.1 mg Tablet 0.1 mg PO BID Qty: 60 0RF Protocol: Hold for SBP< HOLD for SBP < : 90 diclofenac sodium 1 % gel 2 g topical BID Protocol: Apply to: Apply to: [facility] [employer] [facility] 1-60-300 mg-mg-mcg tablet 1 tab PO DAILY prednisone 10 mg tablet 10 mg PO DAILY Qty: 5 0RF
--- OUTSIDE RECORDS SUMMARY | 2022-09-29 16:23 | XMS_ITS ---
Author Name Joao Schroeder Jr Address [address] [place] [address] Organization [facility] Address [address] [place] [address] Care Team Providers Care Rating Specialist Name Role Phone Alexandre Garcia Joao Unavailable [phone] PROBLEMS Type Condition ICD9-CM Code ZPE03-UZ Code Onset Dates Condition Status SNOMED Code Problem Colon cancer screening Z12.11 Active 476523229 Problem Gastroesophageal reflux disease without esophagitis K21.9 Active 66167345 5 Problem Other chronic nonalcoholic liver disease 571.8 Active 96470742 Problem Esophageal reflux 530.81 Active 450419 004 Problem Hepatitis C virus infection, unspecified chronicity B19.20 Active 94738006 ALLERGIES No Known Allergies ENCOUNTERS Encounter Location Date Diagnosis [facility] Inpatient [address] [place] [id number] May, [facility] [address] [place] [phone] May, [facility] [address] [place] [phone] Mar, [facility] [address] [place] [phone] Jan, [facility] [address] [place] [phone] Oct, [facility] [address] [place] [address] Mar, Colon cancer screening Z12.11 [facility] [address] [place] [address] 18 Mar, 2016 [facility] [address] [place] Mar, [facility] [address] [place] [address] 17 Mar, 2016 Gastroesophageal reflux disease without esophagitis K21.9 ; Colon cancer screening Z12.11 and Hepatitis C virus infection, unspecified chronicity B19.20 [facility] [address] [place] [address] May, [facility] [address] [place] [address] Dec, [facility] [address] [place] [address] May, [facility] [address] [place] [address] Mar, Esophageal reflux 530.81 and Other chronic nonalcoholic liver disease 571.8 [facility] [address] [place] [address] September, Esophageal reflux 530.81 and Other chronic nonalcoholic liver disease 571.8 [facility] [address] [place], [place] September, [facility] [address] [place] [address] Jul, [facility] [address] [place] [address] Feb, Esophageal reflux 530.81 and Other chronic nonalcoholic liver disease 571.8 [facility] [address] [place] [address] Jan, [facility] ER [address] [place] [phone] Mar, [facility] ER [address] [place], [place] [phone] Aug, [facility] ER [address] [place], [place] [phone] Mar, [facility] ER [address] [place], [place] [phone] Jul, [facility] ER [address] [place], [place] [phone] September, [facility] ER [address] [facility] [place] [id number] Jun, [facility] ER [address] [facility] [place] [phone] Jul, [address] [phone] Oct, [address] [place] [phone] Dec, [address] [phone] Mar, [address] [phone] Dec, IMMUNIZATIONS No Known Immunizations SOCIAL HISTORY Never Assessed REASON FOR REFERRAL FUNCTIONAL STATUS PLAN OF CARE VITAL SIGNS Weight 161 lbs 2016-04-06 Weight 165 lbs 2012 Weight 156 lbs 2011-09-29 Weight 171 lbs 2011-03-08 Height 61.50 in 2016-04-06 Height N/A in 2012 Height N/A in 2011-09-29 Height 61.50 in 2011-03-08 BMI 29.92 kg/m2 2016-04-06 BMI 30.67 kg/m2 2012 BMI 29.00 kg/m2 2011-09-29 BMI 31.78 kg/m2 2011-03-08 Heart Rate 64 /min 2011-09-29 Blood pressure systolic 128 mm Hg Blood pressure diastolic 82 mm Hg 2016-03 MEDICATIONS Medication Instructions Dosage Frequency Start Date End Date Duration Status Cardizem CD 180 MG Orally Once a day 1 capsule 24h Active diphenhydrAMINE HCl 50 MG Active metFORMIN HCl 1000 MG Orally Twice a day 1 tablet with meals 12h Active Zofran 4 MG Orally Once a day 1 tablet 24h Active Suboxone 8-2 MG Sublingual Once a day 1 application under the tongue and allow to dissolve 24h Active cloNIDine HCl 0.1 MG Orally Once a day 1 tablet at bedtime 24h Active amLODIPine Besylate 10 MG Orally Once a day 1 tablet 24h Active Spiriva HandiHaler 18 MCG Active Furosemide 20 MG Orally Once a day 3 tablet 24h Active Cyclobenzaprine HCl 10 MG Orally Three times a day 1 tablet 8h Active RisperDAL 2 MG Orally Once a day 1 tablet 24h Active Proventil HFA 108 (90 Base) MCG/ACT Inhalation every 4 hrs 2 puffs as needed 4h Active Aspir-81 81 MG Orally Once a day 1 tablet 24h Active Acetaminophen 500 MG Orally every 6 hrs 2 capsules as needed 6h Active Flovent HFA 110 MCG/ACT Inhalation Twice a day 1 puff 12h Active Albuterol Sulfate (2.5 MG/3ML) 0.083% Inhalation Three times a day 3 ml 8h Active OXcarbazepine 300 MG Active Losartan Potassium 100 MG Orally Once a day 1 tablet 24h Active Pantoprazole Sodium 40 MG Orally Once a day 1 tablet 24h 17 Mar, 2016 30 day(s) Active Pepcid AC Maximum Strength 20 MG Orally bid 1 tablet at bedtime 12h Active hydrALAZINE HCl 25 MG Orally TID 1 tablet 8h Active PROCEDURES Procedure Date Ordered Result Body Site DIAGNOSTIC COLONOSCOPY May 24, 2022 TEST FOR BLOOD, FECES Apr 12, 2016 RESULTS Name Result Date Reference Range Hemoccult Cards (Screening) 2016-04-12 Sample 1 Sample 2 Sample 3 LIVER PROFILE 2016-04-11 PROTEIN, TOTAL 7.1 6.5-8.0 ALBUMIN 4.4 3.5-5.0 BILIRUBIN, TOTAL 0.3 0.0-1.0 BILIRUBIN, DIRECT 0.2 0.0-0.5 ALK. PHOS. 140 39-117 GOT 14 5-31 GPT 15 0-31 CBC w/o DIFF 2016-04-11 WBC 8.5 4.8-10.8 RBC 4.14 4.20-5.50 HEMOGLOBIN 12.7 12.0-16.0 HEMATOCRIT 36.7 37-47 MCV 88.5 80-98 MCH 30.7 27.0-33.0 MCHC 34.7 31.0-35.0 PLATELET COUNT 262 160-400 RDW 13.0 11.0-16.0 HEPATITIS C VIRAL LOAD 2016-04-11 HEP C VIRAL LOAD <15 <15 HCV LOG PCR <1.18 <1.18 REASON FOR VISIT abn ct scan colon, Pt no show, Patient presents today for a screening colonoscopy, screening colonoscopy, Pt no show, Pt no show, Patient presents today for follow up GERD, Pt no show, patient presents today for COLON RECALL, hemoccult cards, put on colon recall for 06/2017, Put on one year OV follow up, diarrhea, Pt no show, Hep C, No Show, office recall , 6 month f/u, yearly, discomfort, abd pain, gas, liver, had to R/S, no ride, follow-up Insurance Providers Health Insurance Type Health Plan Insurance Address Health Plan Insurance Phone Health Plan Insurance Name Health Plan Coverage Dates Member ID Patient Relationship to Subscriber Patient Address Patient Phone Patient Name Patient Date of Subscriber ID Subscriber Name Subscriber Date of Group No [employer] [address] [facility] [id number] [employer] self [employer] [id number] [facility] [address] [address] [facility] [id number] [facility] self [employer] [id number] MEDICA[employer] OF [facility] [address] [facility] [address] [facility] self [employer] [id number]
[2022-09-29] MEDS: bisacodyL 5 MG TABLET.DR 10 MG PO (16:47)
[2022-09-29] MEDS: oxyCODONE HCl Immed Release 5 MG TABLET 10 MG PO (16:48)
[2022-09-29] MEDS: Milk of Magnesia 30 ML ORAL.SUSP PO (16:48)
[2022-09-29 18:15] VITALS: BP 192/93; PULSE 76; RESP 12; TEMP 36.8; O2SAT 97
== END 2022-09-29 18:46 | disposition home or self-care (01) ==
PROVIDERS: Emergency Provider Internal Medicine
DX: K59.00 Constipation, unspecified (principal); R10.9 Unspecified abdominal pain; E11.22 Type 2 diabetes mellitus with diabetic chronic kidney disease; I13.2 Hypertensive heart and chronic kidney disease with heart failure and with stage 5 chronic kidney disease, or end stage renal disease; I50.9 Heart failure, unspecified; N18.6 End stage renal disease; Z99.2 Dependence on renal dialysis; Z91.158 Patient's noncompliance with renal dialysis for other reason; F11.20 Opioid dependence, uncomplicated; F17.210 Nicotine dependence, cigarettes, uncomplicated; Z79.899 Other long term (current) drug therapy; Z79.82 Long term (current) use of aspirin
CPT/HCPCS: 74018; 99283; 99284

== ENCOUNTER → 2022-10-11 09:51 | Outpatient (BNVA) | payer OTHER, SELFPAY | PROVIDERS: PCP Internal Medicine; Referring Provider Internal Medicine; Visit Provider Internal Medicine Cardiovascular Disease | DX: I26.99 Other pulmonary embolism without acute cor pulmonale (principal); I16.1 Hypertensive emergency; I21.A1 Myocardial infarction type 2; J44.1 Chronic obstructive pulmonary disease with (acute) exacerbation; I13.2 Hypertensive heart and chronic kidney disease with heart failure and with stage 5 chronic kidney disease, or end stage renal disease; I50.30 Unspecified diastolic (congestive) heart failure; I50.1 Left ventricular failure, unspecified; E11.22 Type 2 diabetes mellitus with diabetic chronic kidney disease; N18.6 End stage renal disease; F17.210 Nicotine dependence, cigarettes, uncomplicated; Z99.2 Dependence on renal dialysis; Z91.158 Patient's noncompliance with renal dialysis for other reason; Z79.4 Long term (current) use of insulin | CPT/HCPCS: 99212 ==

== ENCOUNTER 2022-12-22 09:32 | Outpatient (REF) | payer OTHER, SELFPAY ==
--- NOTE | ~2022-12-22 | XR_ITS ---
EXAMINATION: XR KNEE, LEFT CLINICAL INFORMATION: Left knee pain. COMPARISON: Left knee radiographs dated 05/03/2021. TECHNIQUE: Four views of the left knee. FINDINGS: Moderate to severe tricompartmental degenerative joint changes are seen most pronounced in the medial femoral-tibial compartment. Prominent marginal spurring is seen off of the superior margin of the patella extending into the suprapatellar region. Possible trace suprapatellar joint effusion. There is no acute fracture. Moderate surrounding sclerosis is noted. The soft tissues are unremarkable. XR/XR knee LT 3V IMPRESSION: Moderate to severe tricompartmental degenerative joint changes most consistent with osteoarthritis. Possible trace suprapatellar joint effusion. No acute fracture. The surrounding sclerosis is nonspecific, but could be degenerative in nature.
== END 2022-12-22 09:33 | disposition home or self-care (01) ==
LOC: HO.HHCX 09:32
PROVIDERS: Visit Provider Emergency Medicine
DX: M25.562 Pain in left knee (principal)
CPT/HCPCS: 73562

== ENCOUNTER 2022-12-24 08:17 | Emergency (ER) | payer OTHER, SELFPAY ==
[2022-12-24] VITALS (12 sets, daily range): BP systolic 152–203; BP diastolic 57–82; PULSE 60–71; RESP 16–20; TEMP 36.3–37.4; O2SAT 97–100; BMI 28.3
--- NOTE | ~2022-12-24 | CT_ITS ---
EXAMINATION: CT ABDOMEN AND PELVIS WITHOUT CONTRAST CLINICAL INFORMATION: Severe pain in the left flank COMPARISON: Chest and abdomen CT from August 2022 TECHNIQUE: Multidetector volumetric imaging was performed from the superior aspect of the liver through the pubic symphysis. Sagittal and coronal reformatted images were obtained on the technologist's workstation. This CT examination was performed using dose optimization techniques as appropriate, variously including the following: *Automated exposure control *Adjustment of mA and/or kV according to patient size (this includes techniques or standardized protocols for targeted exams where dose is matched to indication/reason for exam; i.e. extremities or head) *Use of iterative reconstruction technique DLP: 375 mGy-cm FINDINGS: LUNG BASES: The visualized lung bases are unremarkable. LIVER, GALLBLADDER, AND BILIARY TREE: Liver is homogeneous, enlarged. There is no intrahepatic masses or ductal dilatation seen. Gallbladder is surgically absent. PANCREAS: Unremarkable. SPLEEN: Unremarkable. ADRENAL GLANDS: Unremarkable. KIDNEYS AND URETERS: There is simple cyst in the lower pole of left kidney, measured 4.6 cm, stable since previous study the right kidney is unremarkable. BLADDER: Urinary bladder is decompressed without stones or wall thickening. GASTROINTESTINAL TRACT: The small and large bowel are umbilical hernia unremarkable. The appendix is unremarkable. There is large amount of retained feces due to constipation. ABDOMINAL WALL: There is small fat-containing umbilical hernia LYMPH NODES: Normal. 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 Abdominal aorta is nondilated but calcified. PELVIC VISCERA: Unremarkable. OSSEOUS STRUCTURES: There is stable superior endplate compression deformity of L3, possibly large Schmorl's hernia of indeterminate age. CT/CT abdomen pelvis wo IV con IMPRESSION: 1. No explanation for left flank pain. 2. Stable simple cyst in the left kidney. 3. Constipation. 4. Stable right renal artery aneurysm. 5. Stable superior endplate compression deformity of L3, possibly Schmorl's hernia of indeterminate age. 6. Small fat-containing umbilical hernia. Fleischner guidelines were followed.
--- NOTE | 2022-12-24 08:34 | ED.GENADULT ---
HPI - General Adult General Chief complaint: Back Pain/Injury Stated complaint: Back pain per EMS Time Seen by Provider: 12/24/22 08:29 Source: patient Mode of arrival: ambulatory Limitations: no limitations History of Present Illness HPI narrative: 67-year-old female history of hypertension, hyponatremia, end-stage renal disease ( on HD sunday, , sunday) presents to the emergency department complaints of left lower back pain for the past 5 days, atraumatic in nature, pain is worse with movement, better at rest. Patient reports she has had back pain in the past however not this severe. Patient denies urinary symptoms however she tells me she does not make urine and has not made urine for years because she is on dialysis. Patient denies saddle paresthesias, numbness, tingling, weakness, headache, vision changes, dizziness, fevers, chills. Related Data Home Medications Medication Instructions Recorded Confirmed buprenorphine 8 mg-naloxone 2 mg 2 strip sublingual DAILY 10/22/20 10/11/22 sublingual film (Suboxone) diltiazem HCl 180 mg 360 mg PO DAILY 10/22/20 10/11/22 capsule,extended release 24 hr bumetanide 2 mg tablet 2 mg PO DAILY 04/15/21 10/11/22 fluticasone propionate 110 1 puff inhalation BID 04/15/21 10/11/22 mcg/actuation HFA aerosol inhaler (Flovent HFA) melatonin 5 mg tablet 5 mg PO BEDTIME PRN Sleep 04/15/21 10/11/22 pantoprazole 40 mg tablet,delayed 40 mg PO DAILY@0630 04/15/21 10/11/22 release sennosides 8.6 mg tablet (senna) 1 - 2 tab PO BEDTIME PRN 05/11/21 10/11/22 constipation aspirin 81 mg tablet,delayed 1 tab PO DAILY 10/11/21 10/11/22 release albuterol sulfate 90 mcg/actuation 2 puff inhalation Q4H PRN wheezing 01/31/22 10/11/22 aerosol inhaler (Ventolin HFA) ondansetron 4 mg disintegrating 4 mg PO BID PRN nausea and vomiting 03/09/22 10/11/22 tablet carvedilol 6.25 mg tablet 1 tab PO BID 04/24/22 10/11/22 albuterol sulfate 2.5 mg/3 mL 1 amp inhalation TID PRN Shortness 05/08/22 10/11/22 (0.083 %) solution for nebulization Of Breath amlodipine 10 mg tablet 10 mg PO DAILY 07/10/22 10/11/22 hydralazine 100 mg tablet 100 mg PO TID 07/10/22 10/11/22 isosorbide dinitrate 30 mg tablet 30 mg PO TID 07/10/22 10/11/22 nicotine 21 mg/24 hr daily 1 patch topical DAILY 08/07/22 10/11/22 transdermal patch diclofenac sodium 1 % topical gel 2 g topical BID 08/31/22 10/11/22 vitamin B comp no.3-folic acid 1 1 tab PO DAILY 08/31/22 10/11/22 mg-vit C 60 mg-biotin 300 mcg tablet ([employer]) clonidine HCl 0.2 mg tablet 0.2 mg PO BID 10/11/22 10/11/22 mirtazapine 7.5 mg tablet 7.5 mg PO BEDTIME 10/11/22 10/11/22 Previous Rx's Medication Instructions Recorded docusate sodium 100 mg capsule 100 mg PO BID PRN Constipation #30 12/04/21 (Colace) caps diphenhydramine HCl 25 mg capsule 25 mg PO DAILY PRN allergy 04/30/22 (Benadryl) symptoms #30 caps lactulose 10 gram/15 mL oral 10 g (15 mL) PO DAILY PRN 07/03/22 solution constipation #237 mL losartan 50 mg tablet 50 mg PO DAILY #30 tabs 08/18/22 prednisone 10 mg tablet 10 mg PO DAILY #5 tabs 09/09/22 polyethylene glycol 3350 17 17 g PO DAILY #510 grams 09/29/22 gram/dose oral powder (Miralax) Allergies Allergy/AdvReac Type Severity Reaction Status Date / Time No Known Allergies Allergy Mild NOT Verified 10/11/22 09:59 APPLICABLE Review of Systems Review of Systems: Constitutional : No Weight loss, No Fever, No Chills, ENT/Mouth : No Hearing loss, No Ear Pain, No Nasal Congestion, No Sinus Pain, No Hoarseness, No sore throat, No Rhinorrhea, No Swallowing Difficulty Cardiovascular : No Chest Pain, No SOB Respiratory : No Cough, No Dyspnea Gastrointestinal : No Nausea, No Vomiting, No Diarrhea, No abdominal Pain, No Hematochezia, No Melena Genitourinary : No Dysuria, No Urinary Frequency, No Hematuria, No Urinary Incontinence, Musculoskeletal : positive back pain Skin : No Skin Lesions, No rash Neuro : No Weakness, No Numbness, No Paresthesias, no loss of bowel or bladder incontinence, no saddle anesthesia Yes all other systems are reviewed and are negative PMFSH Past Medical History Attestation statement: The following information was validated with the patient. Source: old records reviewed and nursing notes reviewed Medical History Acute exacerbation of chronic obstructive pulmonary disease (COPD) Acute GI bleeding Anasarca Anemia Anemia in chronic kidney disease Ascites Asthma with COPD with exacerbation Congestive heart failure with left ventricular dysfunction Constipation COVID COVID-19 virus infection Delirium Diabetes mellitus Dialysis patient, noncompliant End stage chronic kidney disease End stage renal disease on dialysis ESRD (end stage renal disease) ESRD (end stage renal disease) ESRD on dialysis Essential hypertension Fever Heart failure with preserved ejection fraction Hypertension Hypertrophic cardiomyopathy Ischemic colitis Leukocytosis Opioid withdrawal Pulmonary congestion Sepsis Tachycardia Surgical History No pertinent past surgical history Family History Family History Other Hypertension Social History Social History (Updated 10/11/22 @ 10:04 by VIRY Pascual) Household Members: None Housing: Apartment Do you presently have visiting nurse or other home services: Yes Alcohol intake: never Patient Tobacco Use Status: Current everyday Tobacco user Tobacco use type: Cigarette Cigarettes Per Day: 2 Years Smoked: 50 +/- e-Cigarette/Vaping Use: Former Use Second Hand Smoke Exposure: No Substance Use Type: Crack/Cocaine Advance Directives: Yes Advance Directives on File: Yes Advance Directives Date on File: 04/17/22 service: No Current occupational status: disabled Physical Exam ED Vital Signs: Vital Signs - 24 hr 12/24/22 08:28 12/24/22 10:32 12/24/22 10:41 Temperature 99.4 F 97.3 F Pulse Rate 64 66 Respiratory Rate 18 16 20 Blood Pressure 183/75 H 201/75 H Pulse Oximetry 100 98 Oxygen Delivery Method Room Air Room Air 12/24/22 11:57 Temperature Pulse Rate Respiratory Rate 18 Blood Pressure Pulse Oximetry Oxygen Delivery Method BMI result Body Mass Index 28.3 Vital signs Appearance: Alert.? Oriented X3.? No acute distress.? Head: Normocephalic, atraumatic, no step-offs or deformities Eyes: Pupils equal, round and reactive to light.? CVS: Normal heart rate and rhythm.? Pulses normal.? Respiratory: No respiratory distress.? Breath sounds normal.? Abdomen: Soft and nontender.? Skin: Skin warm and dry.? Normal skin color.? Normal skin turgor.? Extremities: No lower extremity edema.? No calf ttp. 5/5 strength to bilateral upper and lower extremities Back: No midline tenderness, no C-spine tenderness, full range of motion, no CVA tenderness bilaterally + L lumbar paraspinous tenderness to palpation. No midline tenderness. Neuro: Oriented X 3.? No motor deficit.? No sensory deficit. CN 2-12 intact Course Reevaluation(s) Reevaluation #1: CBC within normal limits. Chemistry appears to be around patient's baseline, BUN and creatinine chronically elevated patient on hemodialysis. Anion gap likely secondary to CKD. Time: 11:22 Reevaluation #2: Patient is still in pain. Additional Dilaudid ordered aswell as tylenol Time: 12:54 Medications Administered Discontinued Medications Generic Name Dose Route Start Last Admin Trade Name Mickeyq PRN Reason Stop Dose Admin Hydromorphone HCl 0.5 mg 12/24/22 10:21 12/24/22 10:41 Hydromorphone Hcl 0.5 Mg/0.5 Ml Syringe IVPUSH 12/24/22 10:22 0.5 mg ONCE ONE Administration Protocol Hydromorphone HCl 0.5 mg 12/24/22 11:44 12/24/22 11:57 Hydromorphone Hcl 0.5 Mg/0.5 Ml Syringe IVPUSH 12/24/22 11:45 0.5 mg ONCE ONE Administration Protocol Lidocaine 1 patch 12/24/22 08:34 12/24/22 08:55 Lidocaine 4 % Patch Adh..Patch TRANSDERMA 12/24/22 08:35 1 patch ONCE ONE Administration Protocol Morphine Sulfate 15 mg 12/24/22 08:34 12/24/22 08:57 Morphine Sulfate Immed Release 15 Mg Tablet PO 12/24/22 08:35 15 mg ONCE ONE Administration Medical Decision Making Medical Decision Making [facility] Narrative: 0840 67 year old female present w/ atraumatic L lower back pain X 5 days. Denies red flag symptoms Physical exam with left lower lumbar paraspinous tenderness on palpation. No midline tenderness. No saddle paresthesias. Normal strength upper and lower extremities. Likely lumbar paraspinous spasm, versus lumbar radiculopathy versus lumbago versus sciatic,. Unlikely cauda equina, epidural abscess, cord compression. Other differentials include herniated disc. Unlikely fractures or dislocations. Unlikely UTI, cystitis, pyelonephritis or obstructing uropathy Plan at this time pain control. Will not obtain a urine as patient is an uric Differential Diagnosis Differential Diagnoses: The differential diagnosis associated with the presentation includes Likely lumbar paraspinous spasm, versus lumbar radiculopathy versus lumbago versus sciatic,. Unlikely cauda equina, epidural abscess, cord compression. Other differentials include herniated disc. Unlikely fractures or dislocations. Unlikely UTI, cystitis, pyelonephritis or obstructing uropathy Admission/Observation Consideration of admission/observation: Escalation of care including admission/observation considered No indication Lab Data 12/24/22 10:36 12/24/22 10:36 Labs: Lab Results 12/24/22 12/24/22 12/24/22 Range/Units 10:36 10:36 11:41 WBC 6.7 (4.8-10.8) X10*3/uL RBC 3.80 L (4.20-5.50) X10*6/uL Hgb 12.0 (12.0-16.0) g/dl Hct 36.2 L (37.0-47.0) % MCV 95.3 (80.0-98.0) fL MCH 31.6 (27.0-33.0) pg MCHC 33.1 (31.0-35.0) g/dl RDW 14.9 (11.0-16.0) % Plt Count 207 D (160-400) X10*3/uL MPV 9.8 (9.4-12.3) fL Immature Gran % (Auto) 0.3 (0.0-0.4) % Neut % (Auto) 68.1 (45-73) % Lymph % (Auto) 17.0 L (20-40) % [place] % (Auto) 10.6 (2-11) % Eos % (Auto) 3.7 (0-4) % Baso % (Auto) 0.3 (0-2) % Lymph # (Auto) 1.1 L (1.2-4.9) X10*3/uL [place] # (Auto) 0.7 (0.1-1.2) X10*3/uL Eos # (Auto) 0.3 (0.0-0.4) X10*3/uL Baso # (Auto) 0.0 (0.0-0.2) X10*3/uL Abs Immat Gran (auto) 0.02 (0.00-0.03) X10*3/uL Absolute Neuts (auto) 4.6 (2.0-8.3) x10*3/uL Absolute Nucleated RBC 0.000 (0.0-0.012) X10*3/uL Nucleated RBC % (auto) 0.0 (0.0-0.2) /100WBC Sodium 134 L (135-145) mmol/L Potassium 5.1 (3.3-5.1) mmol/L Chloride 91 L (96-108) mmol/L Carbon Dioxide 24 (22-29) mmol/L Anion Gap 24 H (12-20) BUN 35 H (9-16) mg/dL Creatinine 5.52 H* (0.5-1.4) mg/dL Estim Creat Clear Calc 8.8 Estimated GFR 8 POC Glucose 120 H (60-115) mg/dL Random Glucose 130 H (60-115) mg/dL Calcium 10.1 D (8.4-10.2) mg/dL Magnesium 2.4 (1.6-2.6) mg/dL Total Bilirubin 0.4 (0.0-1.0) mg/dL AST 23 (5-31) U/L ALT 15 (0-31) U/L Alkaline Phosphatase 184 H (39-117) U/L Total Protein 8.2 H (6.5-8.0) g/dL Albumin 4.2 (3.5-5.0) g/dL External Record Review External record reviewed: Inpatient record, Office record, Outpatient record, Prior outpatient labs, Prior outpatient radiology, Primary care record and Outside ED record Tests considered The following testing was considered but not selected: Atraumatic back pain, no red flag symptoms no indication for x-ray or MRI. Prescription Management I considered prescription management with: Pain Medication Core Measures AMI core measures followed: Yes Measure exclusions: not indicated Critical Care Time Critical Care Time Critical Care Time: No Discharge Plan Discharge Clinical Impression: Acute lumbar back pain, CKD (chronic kidney disease) Patient Disposition: Home, Self-Care Instructions: Acute Low Back Pain (ED) Additional Instructions: Take your medications as prescribed. If you were prescribed antibiotics today, it is important that you take your medication to their entirety, do not skip any doses, do not finish them early. Follow-up with your primary care provider this week. Return to the emergency department with new or worsening symptoms. Such as fevers, chills, chest pain, shortness of breath, nausea, vomiting, dizziness, headache, vision changes, lethargy In case of emergency call 911 Prescriptions: No Action buprenorphine-naloxone [Suboxone] 8-2 mg film 2 strip sublingual DAILY diltiazem HCl 180 mg capsule,extended release 24hr 360 mg PO DAILY docusate sodium [Colace] 100 mg capsule 100 mg PO BID PRN (Reason: Constipation) Qty: 30 0RF bumetanide 2 mg Tablet 2 mg PO DAILY pantoprazole 40 mg Tablet,Delayed Release (Dr/Ec) 40 mg PO DAILY@0630 melatonin 5 mg Tablet 5 mg PO BEDTIME PRN (Reason: Sleep) fluticasone propionate [Flovent HFA] 110 mcg/actuation Hfa Aerosol Inhaler 1 puff INHALATION BID sennosides [senna] 8.6 mg tablet 1 - 2 tab PO BEDTIME PRN (Reason: constipation) aspirin 81 mg tablet,delayed release (DR/EC) 1 tab PO DAILY albuterol sulfate [Ventolin HFA] 90 mcg/actuation HFA aerosol inhaler 2 puff INHALATION Q4H PRN (Reason: wheezing) ondansetron 4 mg tablet,disintegrating 4 mg PO BID PRN (Reason: nausea and vomiting) carvedilol 6.25 mg tablet 1 tab PO BID diphenhydramine HCl [Benadryl] 25 mg capsule 25 mg PO DAILY PRN (Reason: allergy symptoms) Qty: 30 0RF albuterol sulfate 2.5 mg /3 mL (0.083 %) solution for nebulization 1 amp inhalation TID PRN (Reason: Shortness Of Breath) lactulose 10 gram/15 mL solution 10 g PO DAILY PRN (Reason: constipation) Qty: 237 0RF isosorbide dinitrate 30 mg Tablet 30 mg PO TID Rx Instructions: allow nitrate-free interval of 12-14 hrs per 24-hr period amlodipine 10 mg tablet 10 mg PO DAILY Protocol: Hold for SBP< HOLD for SBP < : 90 Rx Instructions: replaces prior dose of 5 mg daily hydralazine 100 mg Tablet 100 mg PO TID nicotine 21 mg/24 hr patch 24 hour 1 patch topical DAILY losartan 50 mg Tablet 50 mg PO DAILY Qty: 30 0RF Protocol: Hold for SBP< HOLD for SBP < : 90 diclofenac sodium 1 % gel 2 g topical BID Protocol: Apply to: Apply to: LOWER BACK [employer] 1-60-300 mg-mg-mcg tablet 1 tab PO DAILY prednisone 10 mg tablet 10 mg PO DAILY Qty: 5 0RF polyethylene glycol 3350 [Miralax] 17 gram/dose powder 17 g PO DAILY Qty: 510 0RF mirtazapine 7.5 mg tablet 7.5 mg PO BEDTIME clonidine HCl 0.2 mg tablet 0.2 mg PO BID Referrals: Sammy Vicente MD [Primary Care Provider] - 2 days
[2022-12-24] MEDS: Lidocaine 4 % Patch ADH..PATCH 1 PATCH TRANSDERMA (08:55)
[2022-12-24] MEDS: Morphine Sulfate Immed Release 15 MG TABLET PO (08:57)
[2022-12-24 10:39] LABS: MANUAL DIFF FLAG NO
[2022-12-24] MEDS: HYDROmorphone HCl 0.5 MG/0.5 ML SYRINGE IVPUSH ×3 (10:41→16:55)
[2022-12-24 10:58] LABS: Basophils Percent Auto 0.3 % (0-2); Eosinophils Absolute Auto 0.3 X10*3/uL (0.0-0.4); Eosinophils Percent Auto 3.7 % (0-4); Hematocrit 36.2 % (37.0-47.0); Imm Gran Abs Auto 0.02 X10*3/uL (0.00-0.03); Imm Gran Pct Auto 0.3 % (0.0-0.4); Lymphocytes Absolute Auto 1.1 X10*3/uL (1.2-4.9); Mean Corpuscular HGB Conc 33.1 g/dl (31.0-35.0); Mean Corpuscular Hemoglobin 31.6 pg (27.0-33.0); Mean Corpuscular Volume 95.3 fL (80.0-98.0); Mean Platelet Volume 9.8 fL (9.4-12.3); Monocytes Absolute Auto 0.7 X10*3/uL (0.1-1.2); Monocytes Percent Auto 10.6 % (2-11); Neutrophils Absolute Auto 4.6 x10*3/uL (2.0-8.3); Neutrophils Percent Auto 68.1 % (45-73); Platelet Count 207 X10*3/uL (160-400); Red Cell Distribution Width 14.9 % (11.0-16.0); White Blood Count 6.7 X10*3/uL (4.8-10.8)
[2022-12-24 11:08] LABS: Alanine Aminotransferase 15 U/L (0-31); Albumin Level 4.2 g/dL (3.5-5.0); Alkaline Phosphatase 184 U/L (39-117); Aspartate Amino Transferase 23 U/L (5-31); Bilirubin Total 0.4 mg/dL (0.0-1.0); Blood Urea Nitrogen 35 mg/dL (9-16); Calcium 10.1 mg/dL (8.4-10.2); Creatinine Clr Calc Pharmacy 8.8; Estimated Glomerular Filt Rate 8; Glucose Random 130 mg/dL (60-115); Magnesium 2.4 mg/dL (1.6-2.6); Total Protein 8.2 g/dL (6.5-8.0)
[2022-12-24 11:16] LABS: Anion Gap 24 (12-20); Carbon Dioxide 24 mmol/L (22-29); Chloride 91 mmol/L (96-108); Potassium 5.1 mmol/L (3.3-5.1); Sodium 134 mmol/L (135-145)
[2022-12-24 11:49] LABS: Glucose, Whole Blood 120 mg/dL (60-115)
[2022-12-24] MEDS: Acetaminophen 325 MG TABLET 650 MG PO (13:21)
[2022-12-24] MEDS: fentaNYL citrate/PF 100 MCG/2 ML VIAL 25 MCG IVPUSH (15:14)
--- NOTE | 2022-12-24 16:26 | PC.NURSE ---
pt mostly colombian speaking only. reporting 8/10 left lower back pain. groaning and teary eyed. pt medicated per mar multiple times for pain. pt finally comfortable sleeping on stretcher in no apparent distress. pt discharged per provider. called pt daughterChelly, no answer, left message. all pt needs met milvia, call cruz within reach
[2022-12-24] MEDS: ondansetron HCL 4 MG/2 ML VIAL IVPUSH ×2 (16:45→19:32)
--- NOTE | 2022-12-24 17:01 | PC.NURSE ---
pt woke up and complaining of pain again. provider notified and ordered med. pt medicated per jul. provider will check in on pt soon. pt called for ride due to discharge
[2022-12-24] MEDS: Morphine Sulfate 4 MG/ML CARTRIDGE IVPUSH (18:55)
[2022-12-24 19:12] LABS: C Reactive Protein 1.78 mg/dL (< or = 0.50)
[2022-12-24 20:01] LABS: Lactic Acid 1.1 mmol/L (0.5-2.0)
[2022-12-24 22:06] LABS: Erythrocyte Sedimentation Rate 64 MM/HR (0-20)
== END 2022-12-24 23:29 | disposition home or self-care (01) ==
PROVIDERS: Physician Assistant; Emergency Provider Emergency Medicine; PCP Internal Medicine
DX: M54.50 Low back pain, unspecified (principal); R10.9 Unspecified abdominal pain; I13.2 Hypertensive heart and chronic kidney disease with heart failure and with stage 5 chronic kidney disease, or end stage renal disease; N18.6 End stage renal disease; Z94.0 Kidney transplant status; Z79.4 Long term (current) use of insulin; Z79.899 Other long term (current) drug therapy; Z87.891 Personal history of nicotine dependence
CPT/HCPCS: 36415; 74176; 80053; 82947; 83605; 83735; 85025; 85652; 86140; 87040; 96374; 96375; 96376; 99284; J1170; J2270; J2405; J3010

== ENCOUNTER 2023-01-07 11:59 | Emergency (ER) | payer OTHER, SELFPAY ==
--- NOTE | ~2023-01-07 | XR_ITS ---
EXAMINATION: XR KNEE, RIGHT CLINICAL INFORMATION: Right knee pain COMPARISON: None available. TECHNIQUE: Four views of the right knee. FINDINGS: There is severe loss of tricompartment joint space with moderate osteophytosis in patellofemoral and medial compartments. No visible acute fracture, dislocation or lytic process seen. The soft tissues are normal. XR/XR knee RT 4V IMPRESSION: Advanced degenerative arthritic changes right knee. No visible acute fracture, dislocation or subluxation seen.
[2023-01-07 12:09] VITALS: BP 100/52; BP 117/52; PULSE 71; PULSE 74; RESP 18; TEMP 36.8; O2SAT 96; O2SAT 98; BMI 25.0
--- NOTE | 2023-01-07 12:20 | ED_ITS ---
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 States she needs something more than tylenol for pain. Also c/o in AM when she takes her BP medications her BP drops to 80s in the AM but gets better she states she has no v/d or black or bloody stools but she thinks she takes too many BP medications. This has been going on for a week or so MD elicited complaint: dizziness and lightheadedness Onset (ago): week(s) (1) Timing: gradual onset and episodic Severity: similar to previous episodes Context: change in body position History of similar symptoms: Yes Exacerbating factors: change in body position Relieving factors: remaining still Associated symptoms: other (R knee pain) Related Data Home Medications Medication Instructions Recorded Confirmed buprenorphine 8 mg-naloxone 2 mg 2 strip sublingual DAILY 10/22/20 10/11/22 sublingual film (Suboxone) diltiazem HCl 180 mg 360 mg PO DAILY 10/22/20 10/11/22 capsule,extended release 24 hr bumetanide 2 mg tablet 2 mg PO DAILY 04/15/21 10/11/22 fluticasone propionate 110 1 puff inhalation BID 04/15/21 10/11/22 mcg/actuation HFA aerosol inhaler (Flovent HFA) melatonin 5 mg tablet 5 mg PO BEDTIME PRN Sleep 04/15/21 10/11/22 pantoprazole 40 mg tablet,delayed 40 mg PO DAILY@0630 04/15/21 10/11/22 release sennosides 8.6 mg tablet (senna) 1 - 2 tab PO BEDTIME PRN 05/11/21 10/11/22 constipation aspirin 81 mg tablet,delayed 1 tab PO DAILY 10/11/21 10/11/22 release albuterol sulfate 90 mcg/actuation 2 puff inhalation Q4H PRN wheezing 01/31/22 10/11/22 aerosol inhaler (Ventolin HFA) ondansetron 4 mg disintegrating 4 mg PO BID PRN nausea and vomiting 03/09/22 10/11/22 tablet carvedilol 6.25 mg tablet 1 tab PO BID 04/24/22 10/11/22 albuterol sulfate 2.5 mg/3 mL 1 amp inhalation TID PRN Shortness 05/08/22 10/11/22 (0.083 %) solution for nebulization Of Breath amlodipine 10 mg tablet 10 mg PO DAILY 07/10/22 10/11/22 hydralazine 100 mg tablet 100 mg PO TID 07/10/22 10/11/22 isosorbide dinitrate 30 mg tablet 30 mg PO TID 07/10/22 10/11/22 nicotine 21 mg/24 hr daily 1 patch topical DAILY 08/07/22 10/11/22 transdermal patch diclofenac sodium 1 % topical gel 2 g topical BID 08/31/22 10/11/22 vitamin B comp no.3-folic acid 1 1 tab PO DAILY 08/31/22 10/11/22 mg-vit C 60 mg-biotin 300 mcg tablet ([employer]) clonidine HCl 0.2 mg tablet 0.2 mg PO BID 10/11/22 10/11/22 mirtazapine 7.5 mg tablet 7.5 mg PO BEDTIME 10/11/22 10/11/22 Previous Rx's Medication Instructions Recorded docusate sodium 100 mg capsule 100 mg PO BID PRN Constipation #30 12/04/21 (Colace) caps diphenhydramine HCl 25 mg capsule 25 mg PO DAILY PRN allergy 04/30/22 (Benadryl) symptoms #30 caps lactulose 10 gram/15 mL oral 10 g (15 mL) PO DAILY PRN 07/03/22 solution constipation #237 mL losartan 50 mg tablet 50 mg PO DAILY #30 tabs 08/18/22 prednisone 10 mg tablet 10 mg PO DAILY #5 tabs 09/09/22 polyethylene glycol 3350 17 17 g PO DAILY #510 grams 09/29/22 gram/dose oral powder (Miralax) acetaminophen 325 mg tablet 325 mg PO QID PRN pain #20 tabs 12/24/22 (Tylenol) lidocaine 5 % topical ointment 1 appl topical BEDTIME PRN pain 01/07/23 #30 grams Allergies Allergy/AdvReac Type Severity Reaction Status Date / Time No Known Allergies Allergy Mild NOT Verified 10/11/22 09:59 APPLICABLE Review of Systems Review of Systems: Constitutional : No Fever, No Chills, No Fatigue ENT/Mouth : No sore throat, No Rhinorrhea Eyes: No Eye Pain, No Swelling, No Redness Cardiovascular : No Chest Pain, No SOB, No Dyspnea on Exertion Respiratory : No Cough, No Sputum Gastrointestinal : No Nausea, No Vomiting, No Diarrhea, No abdominal Pain Genitourinary : No Dysuria, No Urinary Frequency, No Hematuria, Musculoskeletal : pos joint pain, No Myalgias, No Joint Swelling Skin : No Skin Lesions, No rash Neuro : No Weakness, No Numbness, pos Dizziness, no Headache Psych : No Anxiety/Panic, No Depression Heme/Lymph: No Bruising, No Bleeding,No Lymphadenopathy Endocrine : No Polyuria, No Polydipsia All other systems reviewed and are negative PMFSH Past Medical History Attestation statement: The following information was validated with the patient. Source: old records reviewed Medical History Acute exacerbation of chronic obstructive pulmonary disease (COPD) Acute GI bleeding Anasarca Anemia Anemia in chronic kidney disease Ascites Asthma with COPD with exacerbation Congestive heart failure with left ventricular dysfunction Constipation COVID COVID-19 virus infection Delirium Diabetes mellitus Dialysis patient, noncompliant End stage chronic kidney disease End stage renal disease on dialysis ESRD (end stage renal disease) ESRD (end stage renal disease) ESRD on dialysis Essential hypertension Fever Heart failure with preserved ejection fraction Hypertension Hypertrophic cardiomyopathy Ischemic colitis Leukocytosis Opioid withdrawal Pulmonary congestion Sepsis Tachycardia Surgical History No pertinent past surgical history Family History Family History Other Hypertension Social History Social History Household Members: None Housing: Apartment Do you presently have visiting nurse or other home services: Yes Alcohol intake: never Patient Tobacco Use Status: Current everyday Tobacco user Tobacco use type: Cigarette Cigarettes Per Day: 2 Years Smoked: 50 +/- e-Cigarette/Vaping Use: Former Use Second Hand Smoke Exposure: No Substance Use Type: Crack/Cocaine Advance Directives: Yes Advance Directives on File: Yes Advance Directives Date on File: 04/17/22 service: No Current occupational status: disabled Physical Exam Vital Signs: Vital Signs: Last Vital Signs Temp 98.2 F 01/07/23 12:09 Pulse 71 01/07/23 12:09 Resp 18 01/07/23 12:09 BP 117/52 L 01/07/23 12:09 Pulse Ox 98 01/07/23 12:09 O2 Del Method Room Air 01/07/23 12:09 BMI result Body Mass Index 25.0 Appearance: Alert. Oriented X3. No acute distress. Eyes: Pupils equal, round and reactive to light. ENT: Pharynx normal. Neck: Normal inspection. Neck supple. CVS: Normal heart rate and rhythm. Pulses normal. chest cath site is c/d/i Respiratory: No respiratory distress. Breath sounds normal. Abdomen: Soft and nontender. Skin: Skin warm and dry. Normal skin color. Normal skin turgor. Extremities: No lower extremity edema. no calf ttp R knee reports ttp but can move and range knee there is no effusion or erythema/warmth distal NV intact Neuro: Oriented X 3. No motor deficit. No sensory deficit. Medical Decision Making Medical Decision Making [facility] Narrative: 67 yo female with PMH of HTN, ESRD on HD T Th S, hyponatremia, COPD, HF preserved EF, ischemic colitis, home O2 on 1L here with c/o R knee pain atraumatic - at this time seems more arthralgia no infectious symptoms and clinically pulses are intact and not consistent with septic joint - xray ordered and PO pain medications. Also states her BP is low in AM recently but recovers blames her BP medications she is on mulitple medications has hx of hard to control BP - denies GIB symptoms or GI loss like diarrhea. Will obtian basic l abs could start slow by decreasing her amlodipine in half to 5mg daily and having her check her BPs. Denies CP/SOB. Differential Diagnosis Differential Diagnoses: The differential diagnosis associated with the presentation includes arthralgia, doubt septic joint no fevers no warmth can move knee, no calf pain or swelling to suggest DVT, distal pulses intact doubt ischemia Admission/Observation Consideration of admission/observation: Escalation of care including admission/observation considered VS stable, no GIB symptoms hx of anemia in the past likely related to CKD pain improved stable for DC BP stable here Lab Data [facility] Lab Attestation statement: I reviewed the patient's lab results. hx of anemia 01/07/23 12:57 01/07/23 12:57 Labs: Lab Results 01/07/23 01/07/23 Range/Units 12:57 12:57 WBC 6.2 (4.8-10.8) X10*3/uL RBC 2.95 L D (4.20-5.50) X10*6/uL Hgb 9.2 L D (12.0-16.0) g/dl Hct 28.9 L D (37.0-47.0) % MCV 98.0 (80.0-98.0) fL MCH 31.2 (27.0-33.0) pg MCHC 31.8 (31.0-35.0) g/dl RDW 14.4 (11.0-16.0) % Plt Count 236 (160-400) X10*3/uL MPV 9.8 (9.4-12.3) fL Immature Gran % (Auto) 0.5 H (0.0-0.4) % Neut % (Auto) 66.9 (45-73) % Lymph % (Auto) 17.8 L (20-40) % [place] % (Auto) 10.7 (2-11) % Eos % (Auto) 3.6 (0-4) % Baso % (Auto) 0.5 (0-2) % Lymph # (Auto) 1.1 L (1.2-4.9) X10*3/uL [place] # (Auto) 0.7 (0.1-1.2) X10*3/uL Eos # (Auto) 0.2 (0.0-0.4) X10*3/uL Baso # (Auto) 0.0 (0.0-0.2) X10*3/uL Abs Immat Gran (auto) 0.03 (0.00-0.03) X10*3/uL Absolute Neuts (auto) 4.2 (2.0-8.3) x10*3/uL Absolute Nucleated RBC 0.000 (0.0-0.012) X10*3/uL Nucleated RBC % (auto) 0.0 (0.0-0.2) /100WBC Sodium 135 (135-145) mmol/L Potassium 5.4 H (3.3-5.1) mmol/L Chloride 94 L (96-108) mmol/L Carbon Dioxide 27 (22-29) mmol/L Anion Gap 19 (12-20) BUN 52 H (9-16) mg/dL Creatinine 5.94 H* (0.5-1.4) mg/dL Estim Creat Clear Calc 7.7 Estimated GFR 7 Random Glucose 155 H (60-115) mg/dL Calcium 9.4 D (8.4-10.2) mg/dL Independent Interpretation I performed an independent interpretation of an: Plain X-Ray (arthritis) Radiology Impression Discussion of test interpretation with radiology: I have reviewed the radiologist's reading. External Record Review External record reviewed: Inpatient record Prescription Management I considered prescription management with: Pain Medication Discharge Plan Discharge Clinical Impression: Arthralgia Qualifiers: Joint pain location: knee Laterality: right Qualified Code(s): M25.561 - Pain in right knee Anemia Qualifiers: Anemia type: due to chronic kidney disease Patient Disposition: Home, Self-Care Instructions: Arthralgia (ED), Anemia (ED) Additional Instructions: return for fevers, worsening dizziness, repeated low blood pressure, check your blood counts next dialysis or with your doctor tomorrow. cut your amlodipine in half to 5mg daily. return for increased pain, shortness of breath, fevers or any other issues. regrese por fiebre, empeoramiento de los mareos, presi?n arterial baja repetida, verifique diallo recuentos sangu?neos la pr?xima di?lisis o con saunders m?dico ma?jim. reduzca saunders amlodipina a la mitad a 5 mg al d?a. regrese por aumento del dolor, dificultad para respirar, fiebre o cualquier otro problema. Prescriptions: New lidocaine 5 % ointment 1 appl topical BEDTIME PRN (Reason: pain) Qty: 30 0RF No Action buprenorphine-naloxone [Suboxone] 8-2 mg film 2 strip sublingual DAILY diltiazem HCl 180 mg capsule,extended release 24hr 360 mg PO DAILY docusate sodium [Colace] 100 mg capsule 100 mg PO BID PRN (Reason: Constipation) Qty: 30 0RF bumetanide 2 mg Tablet 2 mg PO DAILY pantoprazole 40 mg Tablet,Delayed Release (Dr/Ec) 40 mg PO DAILY@0630 melatonin 5 mg Tablet 5 mg PO BEDTIME PRN (Reason: Sleep) fluticasone propionate [Flovent HFA] 110 mcg/actuation Hfa Aerosol Inhaler 1 puff INHALATION BID sennosides [senna] 8.6 mg tablet 1 - 2 tab PO BEDTIME PRN (Reason: constipation) aspirin 81 mg tablet,delayed release (DR/EC) 1 tab PO DAILY albuterol sulfate [Ventolin HFA] 90 mcg/actuation HFA aerosol inhaler 2 puff INHALATION Q4H PRN (Reason: wheezing) ondansetron 4 mg tablet,disintegrating 4 mg PO BID PRN (Reason: nausea and vomiting) carvedilol 6.25 mg tablet 1 tab PO BID diphenhydramine HCl [Benadryl] 25 mg capsule 25 mg PO DAILY PRN (Reason: allergy symptoms) Qty: 30 0RF albuterol sulfate 2.5 mg /3 mL (0.083 %) solution for nebulization 1 amp inhalation TID PRN (Reason: Shortness Of Breath) lactulose 10 gram/15 mL solution 10 g PO DAILY PRN (Reason: constipation) Qty: 237 0RF isosorbide dinitrate 30 mg Tablet 30 mg PO TID Rx Instructions: allow nitrate-free interval of 12-14 hrs per 24-hr period amlodipine 10 mg tablet 10 mg PO DAILY Protocol: Hold for SBP< HOLD for SBP < : 90 Rx Instructions: replaces prior dose of 5 mg daily hydralazine 100 mg Tablet 100 mg PO TID nicotine 21 mg/24 hr patch 24 hour 1 patch topical DAILY losartan 50 mg Tablet 50 mg PO DAILY Qty: 30 0RF Protocol: Hold for SBP< HOLD for SBP < : 90 diclofenac sodium 1 % gel 2 g topical BID Protocol: Apply to: Apply to: LOWER BACK [employer] 1-60-300 mg-mg-mcg tablet 1 tab PO DAILY prednisone 10 mg tablet 10 mg PO DAILY Qty: 5 0RF acetaminophen [Tylenol] 325 mg tablet 325 mg PO QID PRN (Reason: pain) Qty: 20 0RF polyethylene glycol 3350 [Miralax] 17 gram/dose powder 17 g PO DAILY Qty: 510 0RF mirtazapine 7.5 mg tablet 7.5 mg PO BEDTIME clonidine HCl 0.2 mg tablet 0.2 mg PO BID Print Language: [place]
[2023-01-07 13:01] LABS: MANUAL DIFF FLAG NO
[2023-01-07 13:06] LABS: Basophils Percent Auto 0.5 % (0-2); Eosinophils Absolute Auto 0.2 X10*3/uL (0.0-0.4); Eosinophils Percent Auto 3.6 % (0-4); Hematocrit 28.9 % (37.0-47.0); Hemoglobin 9.2 g/dl (12.0-16.0); Imm Gran Abs Auto 0.03 X10*3/uL (0.00-0.03); Imm Gran Pct Auto 0.5 % (0.0-0.4); Lymphocytes Absolute Auto 1.1 X10*3/uL (1.2-4.9); Lymphocytes Percent Auto 17.8 % (20-40); Mean Corpuscular HGB Conc 31.8 g/dl (31.0-35.0); Mean Corpuscular Hemoglobin 31.2 pg (27.0-33.0); Mean Platelet Volume 9.8 fL (9.4-12.3); Monocytes Absolute Auto 0.7 X10*3/uL (0.1-1.2); Monocytes Percent Auto 10.7 % (2-11); Neutrophils Absolute Auto 4.2 x10*3/uL (2.0-8.3); Neutrophils Percent Auto 66.9 % (45-73); Platelet Count 236 X10*3/uL (160-400); Red Blood Count 2.95 X10*6/uL (4.20-5.50); Red Cell Distribution Width 14.4 % (11.0-16.0); White Blood Count 6.2 X10*3/uL (4.8-10.8)
[2023-01-07 13:25] LABS: Anion Gap 19 (12-20); Blood Urea Nitrogen 52 mg/dL (9-16); Calcium 9.4 mg/dL (8.4-10.2); Carbon Dioxide 27 mmol/L (22-29); Chloride 94 mmol/L (96-108); Creatinine Clr Calc Pharmacy 7.7; Estimated Glomerular Filt Rate 7; Glucose Random 155 mg/dL (60-115); Potassium 5.4 mmol/L (3.3-5.1); Sodium 135 mmol/L (135-145)
[2023-01-07] MEDS: Sodium Zirconium Cyclosilicate 5 GM POWD.PACK PO (14:32)
[2023-01-07] MEDS: oxyCODONE HCl Immed Release 5 MG TABLET 10 MG PO (14:32)
== END 2023-01-07 14:51 | disposition home or self-care (01) ==
PROVIDERS: Emergency Provider Emergency Medicine
DX: M25.561 Pain in right knee (principal); D63.1 Anemia in chronic kidney disease; R42 Dizziness and giddiness; I12.0 Hypertensive chronic kidney disease with stage 5 chronic kidney disease or end stage renal disease; E11.22 Type 2 diabetes mellitus with diabetic chronic kidney disease; N18.6 End stage renal disease; F17.210 Nicotine dependence, cigarettes, uncomplicated; Z71.6 Tobacco abuse counseling; Z99.81 Dependence on supplemental oxygen; Z79.899 Other long term (current) drug therapy
CPT/HCPCS: 36415; 73564; 80048; 85025; 99283

== ENCOUNTER 2023-02-17 07:56 | Outpatient (REF) | payer OTHER, SELFPAY | END 2023-02-17 07:57 | disposition home or self-care (01) | LOC: HO.HHCLNP 07:56 | PROVIDERS: Visit Provider Emergency Medicine | DX: F11.20 Opioid dependence, uncomplicated (principal) | CPT/HCPCS: 80307 ==

== ENCOUNTER 2023-02-21 13:01 | Emergency (ER) | payer OTHER, SELFPAY ==
--- NOTE | ~2023-02-21 | XR_ITS ---
EXAMINATION: XR KNEE, RIGHT CLINICAL INFORMATION: Pain COMPARISON: 01/07/2023 TECHNIQUE: Four views of the right knee. FINDINGS: Advanced medial degenerative change and moderate lateral degenerative change with subchondral sclerosis and dystrophic calcification again observed. There is advanced patellofemoral degenerative change noted. No joint effusion or fracture, dislocation or destructive lesion. XR/XR knee RT 3V IMPRESSION: Stable advanced degenerative change.
--- NOTE | ~2023-02-21 | US_ITS ---
EXAMINATION: US VENOUS ULTRASOUND WITH DOPPLER LOWER EXTREMITY, RIGHT CLINICAL INFORMATION: Right leg pain COMPARISON: Numerous prior right leg DVT studies most recently 09/08/2022 TECHNIQUE: Ultrasound of the deep veins is performed from the hip to the calf with compression sonography and color and pulse Doppler assessment. Spectral analysis with color-flow imaging is performed. FINDINGS: There is normal venous compression and respiratory variation and augmented flow. The visualized common femoral vein, superficial femoral vein, profunda femoral vein, popliteal vein, and the trifurcation region shows no evidence of deep venous thrombosis. There is no significant popliteal fossa cyst. If the patient's symptoms persist, followup ultrasound in 5 days 7 days might be of value to exclude proximal propagation from a non-visualized calf vein. US/US venous duplex LE RT IMPRESSION: No DVT demonstrated in the right lower extremity.
[2023-02-21 13:11] VITALS: BP 138/76; PULSE 74; O2SAT 98
--- NOTE | 2023-02-21 13:52 | ED_ITS ---
HPI - Extremity Injury (Lower) General Chief Complaint: Extremity Problem Stated Complaint: knee pain Time Seen by Provider: 02/21/23 16:18 Source: patient and RN notes reviewed Mode of arrival: ambulatory Limitations: no limitations History of Present Illness HPI Narrative: 67-year-old female, with a history of end-stage renal disease on dialysis, COPD, GI bleeding, diabetes, hypertension, heart failure, hypertension, hypertrophic cardiomyopathy, who presents to the emergency department with complaints of acute on chronic right knee pain since yesterday. No trauma or injury. Started acutely. Reporting pain worsens with movement with palpation. She describes her pain as sharp and pressure like. Denies any fevers or chills. Denies taking any medications at home to treat her current symptoms. No other complaints or concerns at this time. Severity: moderate Relieving factors: nothing Exacerbating factors: weight bearing Related Data Home Medications Medication Instructions Recorded Confirmed buprenorphine 8 mg-naloxone 2 mg 2 strip sublingual DAILY 10/22/20 10/11/22 sublingual film (Suboxone) diltiazem HCl 180 mg 360 mg PO DAILY 10/22/20 10/11/22 capsule,extended release 24 hr bumetanide 2 mg tablet 2 mg PO DAILY 04/15/21 10/11/22 fluticasone propionate 110 1 puff inhalation BID 04/15/21 10/11/22 mcg/actuation HFA aerosol inhaler (Flovent HFA) melatonin 5 mg tablet 5 mg PO BEDTIME PRN Sleep 04/15/21 10/11/22 pantoprazole 40 mg tablet,delayed 40 mg PO DAILY@0630 04/15/21 10/11/22 release sennosides 8.6 mg tablet (senna) 1 - 2 tab PO BEDTIME PRN 05/11/21 10/11/22 constipation aspirin 81 mg tablet,delayed 1 tab PO DAILY 10/11/21 10/11/22 release albuterol sulfate 90 mcg/actuation 2 puff inhalation Q4H PRN wheezing 01/31/22 10/11/22 aerosol inhaler (Ventolin HFA) ondansetron 4 mg disintegrating 4 mg PO BID PRN nausea and vomiting 03/09/22 10/11/22 tablet carvedilol 6.25 mg tablet 1 tab PO BID 04/24/22 10/11/22 albuterol sulfate 2.5 mg/3 mL 1 amp inhalation TID PRN Shortness 05/08/22 10/11/22 (0.083 %) solution for nebulization Of Breath amlodipine 10 mg tablet 10 mg PO DAILY 07/10/22 10/11/22 hydralazine 100 mg tablet 100 mg PO TID 07/10/22 10/11/22 isosorbide dinitrate 30 mg tablet 30 mg PO TID 07/10/22 10/11/22 nicotine 21 mg/24 hr daily 1 patch topical DAILY 08/07/22 10/11/22 transdermal patch diclofenac sodium 1 % topical gel 2 g topical BID 08/31/22 10/11/22 vitamin B comp no.3-folic acid 1 1 tab PO DAILY 08/31/22 10/11/22 mg-vit C 60 mg-biotin 300 mcg tablet ([employer]) clonidine HCl 0.2 mg tablet 0.2 mg PO BID 10/11/22 10/11/22 mirtazapine 7.5 mg tablet 7.5 mg PO BEDTIME 10/11/22 10/11/22 Previous Rx's Medication Instructions Recorded docusate sodium 100 mg capsule 100 mg PO BID PRN Constipation #30 12/04/21 (Colace) caps diphenhydramine HCl 25 mg capsule 25 mg PO DAILY PRN allergy 04/30/22 (Benadryl) symptoms #30 caps lactulose 10 gram/15 mL oral 10 g (15 mL) PO DAILY PRN 07/03/22 solution constipation #237 mL losartan 50 mg tablet 50 mg PO DAILY #30 tabs 08/18/22 prednisone 10 mg tablet 10 mg PO DAILY #5 tabs 09/09/22 polyethylene glycol 3350 17 17 g PO DAILY #510 grams 09/29/22 gram/dose oral powder (Miralax) acetaminophen 325 mg tablet 325 mg PO QID PRN pain #20 tabs 12/24/22 (Tylenol) lidocaine 5 % topical ointment 1 appl topical BEDTIME PRN pain 01/07/23 #30 grams Allergies Allergy/AdvReac Type Severity Reaction Status Date / Time No Known Allergies Allergy Mild NOT Verified 02/21/23 13:12 APPLICABLE FORMERLY [facility], [facility] Past Medical History Medical History Acute exacerbation of chronic obstructive pulmonary disease (COPD) Acute GI bleeding Anasarca Anemia Anemia in chronic kidney disease Ascites Asthma with COPD with exacerbation Congestive heart failure with left ventricular dysfunction Constipation COVID COVID-19 virus infection Delirium Diabetes mellitus Dialysis patient, noncompliant End stage chronic kidney disease End stage renal disease on dialysis ESRD (end stage renal disease) ESRD (end stage renal disease) ESRD on dialysis Essential hypertension Fever Heart failure with preserved ejection fraction Hypertension Hypertrophic cardiomyopathy Ischemic colitis Leukocytosis Opioid withdrawal Pulmonary congestion Sepsis Tachycardia Surgical History No pertinent past surgical history Family History Family History Other Hypertension Social History Social History Household Members: None Housing: Apartment Do you presently have visiting nurse or other home services: Yes Alcohol intake: never Patient Tobacco Use Status: Current everyday Tobacco user Tobacco use type: Cigarette Cigarettes Per Day: 2 Years Smoked: 50 +/- Smoked in Last 30 Days: Yes e-Cigarette/Vaping Use: Former Use Second Hand Smoke Exposure: No Use of substances other than those prescribed or required for medical reasons: No Substance Use Type: Crack/Cocaine Advance Directives: Yes Advance Directives on File: Yes Advance Directives Date on File: 04/17/22 service: No Current occupational status: disabled Physical Exam Vital Signs: Vital Signs: Last Vital Signs Temp 98.4 F 02/21/23 13:53 Pulse 74 02/21/23 18:38 Resp 14 02/21/23 18:38 BP 189/87 H 02/21/23 18:38 Pulse Ox 98 02/21/23 18:38 O2 Del Method Room Air 02/21/23 18:38 BMI result Body Mass Index 24.2 Const: Other: General: Awake, alert, and oriented X3. No acute distress. HEENT: Normal inspection CVS: Normal heart rate and rhythm. Pulses normal. Respiratory: No respiratory distress Skin: Warm, dry, no rashes noted to exposed skin. Normal skin color. Normal skin turgor. Extremities: Right knee with TTP to the anterior surface of the patella. More TTP over the right lateral joint line with small effusion noted. No induration or warmth, no overlying erythema. Knee flexion to about 45 degrees. DP pulses 2+. Right calf with TTP, no obvious swelling noted. No pitting edema. Neuro: Oriented X 3. No motor deficit. No sensory deficit. Course Course Course Narrative: RME: 67yo F w/PMHx ESRD on HD (//), HTN, c/o atraumatic R knee pain since last night. No defmority, +diffusely ttp, no erythema/warmth. limited ROM from pain XRs ordered Full HPI, ROS and PE to be performed by primary ED provider. Reevaluation(s) Reevaluation #1: Ultrasound does not show any DVT. Right knee x-ray showing severe degenerative disease. Discussed these results with patient, given significant comorbidities only able to treat with Tylenol. Also placed an Chavez wrap. Advised to return with any new or worsening symptoms. Answered all questions, stable for discharge. Time: 19:05 Medications Administered Discontinued Medications Generic Name Dose Route Start Last Admin Trade Name Freq PRN Reason Stop Dose Admin Acetaminophen 325 mg 02/21/23 19:25 02/21/23 19:45 Acetaminophen 325 Mg Tablet PO 02/21/23 19:26 325 mg ONCE ONE Administration Medical Decision Making Medical Decision Making MDM Narrative: 67 y/o F, with a history of end-stage renal disease on dialysis, COPD, GI bleeding, diabetes, hypertension, heart failure, hypertension, hypertrophic cardiomyopathy, presenting to the ER with complaints of atraumatic R knee and calf pain since yesterday. On examination, pt has anterior knee pain with palpation with right lateral joint line tenderness and mild edema noted. DDX including knee effusion,prather's cyst, knee sprain, MALENA, DVT. Less likely septic joint given presentation and ROM, no fevers. Differential Diagnosis Differential Diagnoses: The differential diagnosis associated with the presentation includes see above Discharge Plan Discharge Clinical Impression: Knee pain Patient Disposition: Home, Self-Care Instructions: Knee Pain (ED), Arthralgia (ED) Additional Instructions: Your x-rays today show severe arthritis. May follow-up with orthopedics as needed for your pain. Call to make an appointment. Please take Tylenol as needed for pain. Your ultrasound did not show any blood clots. If any new or worsening symptoms occur please return for re-evaluation. Moon radiograf?as de hoy muestran artritis severa. Puede realizar un seguimiento con un ortopedista seg?n sea necesario para knott dolor. Llama para concertar sergio sera. [place] Tylenol seg?n sea necesario para el dolor. Knott ultrasonido no mostr? ad?n co?gulo de sherman. Si se presenta alg?n s?ntoma nuevo o que empeora, regrese para sergio nueva evaluaci?n. Prescriptions: No Action buprenorphine-naloxone [Suboxone] 8-2 mg film 2 strip sublingual DAILY diltiazem HCl 180 mg capsule,extended release 24hr 360 mg PO DAILY docusate sodium [Colace] 100 mg capsule 100 mg PO BID PRN (Reason: Constipation) Qty: 30 0RF bumetanide 2 mg Tablet 2 mg PO DAILY pantoprazole 40 mg Tablet,Delayed Release (Dr/Ec) 40 mg PO DAILY@0630 melatonin 5 mg Tablet 5 mg PO BEDTIME PRN (Reason: Sleep) fluticasone propionate [Flovent HFA] 110 mcg/actuation Hfa Aerosol Inhaler 1 puff INHALATION BID sennosides [senna] 8.6 mg tablet 1 - 2 tab PO BEDTIME PRN (Reason: constipation) aspirin 81 mg tablet,delayed release (DR/EC) 1 tab PO DAILY albuterol sulfate [Ventolin HFA] 90 mcg/actuation HFA aerosol inhaler 2 puff INHALATION Q4H PRN (Reason: wheezing) ondansetron 4 mg tablet,disintegrating 4 mg PO BID PRN (Reason: nausea and vomiting) carvedilol 6.25 mg tablet 1 tab PO BID diphenhydramine HCl [Benadryl] 25 mg capsule 25 mg PO DAILY PRN (Reason: allergy symptoms) Qty: 30 0RF albuterol sulfate 2.5 mg /3 mL (0.083 %) solution for nebulization 1 amp inhalation TID PRN (Reason: Shortness Of Breath) lactulose 10 gram/15 mL solution 10 g PO DAILY PRN (Reason: constipation) Qty: 237 0RF isosorbide dinitrate 30 mg Tablet 30 mg PO TID Rx Instructions: allow nitrate-free interval of 12-14 hrs per 24-hr period amlodipine 10 mg tablet 10 mg PO DAILY Protocol: Hold for SBP< HOLD for SBP < : 90 Rx Instructions: replaces prior dose of 5 mg daily hydralazine 100 mg Tablet 100 mg PO TID nicotine 21 mg/24 hr patch 24 hour 1 patch topical DAILY losartan 50 mg Tablet 50 mg PO DAILY Qty: 30 0RF Protocol: Hold for SBP< HOLD for SBP < : 90 diclofenac sodium 1 % gel 2 g topical BID Protocol: Apply to: Apply to: [facility] [employer] 1-60-300 mg-mg-mcg tablet 1 tab PO DAILY prednisone 10 mg tablet 10 mg PO DAILY Qty: 5 0RF acetaminophen [Tylenol] 325 mg tablet 325 mg PO QID PRN (Reason: pain) Qty: 20 0RF lidocaine 5 % ointment 1 appl topical BEDTIME PRN (Reason: pain) Qty: 30 0RF polyethylene glycol 3350 [Miralax] 17 gram/dose powder 17 g PO DAILY Qty: 510 0RF mirtazapine 7.5 mg tablet 7.5 mg PO BEDTIME clonidine HCl 0.2 mg tablet 0.2 mg PO BID Referrals: [facility] [place]Provider Group] Interventions: ED Discharge Assessment Last Done: 02/21/23 19:51 Discharge Date/Time: 02/21/23 19:52 Print Language: Slovenian
[2023-02-21 13:53] VITALS: BP 150/61; PULSE 73; RESP 16; TEMP 36.9; O2SAT 100; BMI 24.2
[2023-02-21 16:17] VITALS: BP 156/69; PULSE 70; RESP 16; O2SAT 98
[2023-02-21 18:38] VITALS: BP 189/87; PULSE 74; RESP 14; O2SAT 98
[2023-02-21] MEDS: Acetaminophen 325 MG TABLET PO (19:45)
== END 2023-02-21 19:52 | disposition home or self-care (01) ==
PROVIDERS: Emergency Provider Emergency Medicine
DX: M25.561 Pain in right knee (principal); R60.0 Localized edema; I10 Essential (primary) hypertension; Z79.899 Other long term (current) drug therapy
CPT/HCPCS: 73562; 93971; 99284

== ENCOUNTER 2023-03-13 12:01 | Emergency (ER) | payer OTHER, SELFPAY ==
--- NOTE | ~2023-03-13 | XR_ITS ---
EXAMINATION: XR CHEST CLINICAL INFORMATION: Short of breath. COMPARISON: CT chest with IV contrast for 1323. TECHNIQUE: 2 views of the chest were obtained. FINDINGS: The lungs are well-expanded and clear. The heart size and pulmonary vascularity is normal. There is moderate spondylosis dorsal spine. There is a right jugular central venous dialysis catheter with its tip in mid SVC. No pneumothorax seen. There is mild sclerotic appearance of left seventh posterior rib question healed fracture versus lesion. XR/XR chest 2V IMPRESSION: No acute cardiopulmonary process seen. Mild sclerosis left posterior seventh rib likely healing fracture as this was noted on the previous CT chest 08/31/2022 image 17/08.
[2023-03-13 12:21] VITALS: BP 196/75; BP 200/90; PULSE 77; PULSE 78; RESP 18; TEMP 36.7; O2SAT 98; O2SAT 99; BMI 27.4
--- NOTE | 2023-03-13 12:52 | ECG_ITS ---
Test Reason : NEAR SYNCOPE Blood Pressure : / mmHG Vent. Rate : 078 BPM Atrial Rate : 078 BPM P-R Int : 176 ms QRS Dur : 086 ms QT Int : 390 ms P-R-T Axes : -06 084 014 degrees QTc Int : 444 ms Normal sinus rhythm Normal ECG No significant changes seen Referred By: Paul Bai Electronically Signed By:CHRISTY AN MD
--- NOTE | 2023-03-13 12:52 | ED.GENADULT ---
HPI - General Adult General Chief complaint: General Medical Stated complaint: FROM DIALYSIS,FOUND UNRESPONSIVE.NOW ALERT, WEAK Time Seen by Provider: 03/13/23 12:35 Source: patient and EMS Mode of arrival: EMS Limitations: language barrier History of Present Illness HPI narrative: According to EMS and dialysis center patient passed out. She states she was light headed but never passed out. Patient states she has not had anything to eat for the past 4 days Onset (ago): minute(s) Severity: severe Related Data Home Medications Medication Instructions Recorded Confirmed buprenorphine 8 mg-naloxone 2 mg 2 strip sublingual DAILY 10/22/20 03/13/23 sublingual film (Suboxone) fluticasone propionate 110 1 puff inhalation BID 04/15/21 03/13/23 mcg/actuation HFA aerosol inhaler (Flovent HFA) melatonin 5 mg tablet 5 mg PO BEDTIME PRN Sleep 04/15/21 03/13/23 pantoprazole 40 mg tablet,delayed 40 mg PO DAILY@0630 04/15/21 03/13/23 release sennosides 8.6 mg tablet (senna) 1 tab PO BEDTIME PRN constipation 05/11/21 03/13/23 aspirin 81 mg tablet,delayed 1 tab PO DAILY 10/11/21 03/13/23 release albuterol sulfate 90 mcg/actuation 2 puff inhalation Q4H PRN wheezing 01/31/22 03/13/23 aerosol inhaler (Ventolin HFA) ondansetron 4 mg disintegrating 4 mg PO BID PRN nausea and vomiting 03/09/22 03/13/23 tablet carvedilol 6.25 mg tablet 1 tab PO BID 04/24/22 03/13/23 albuterol sulfate 2.5 mg/3 mL 1 amp inhalation TID PRN Shortness 05/08/22 03/13/23 (0.083 %) solution for nebulization Of Breath amlodipine 10 mg tablet 10 mg PO DAILY 07/10/22 03/13/23 hydralazine 100 mg tablet 100 mg PO TID 07/10/22 03/13/23 isosorbide dinitrate 30 mg tablet 30 mg PO TID 07/10/22 03/13/23 diclofenac sodium 1 % topical gel 2 g topical BID 08/31/22 03/13/23 calcium acetate(phosphat bind) 667 1,334 mg PO TIDWM 03/13/23 03/13/23 mg capsule calcium acetate(phosphat bind) 667 667 mg PO BID PRN TAKES WITH SNACKS 03/13/23 03/13/23 mg capsule clonidine HCl 0.1 mg tablet 0.1 mg PO BID 03/13/23 03/13/23 lactulose 10 gram/15 mL oral 20 g PO DAILY PRN constipation 03/13/23 03/13/23 solution mirtazapine 15 mg tablet 15 mg PO BEDTIME 03/13/23 03/13/23 vitamin B comp no.3-folic acid 1 1 tab PO DAILY 03/13/23 03/13/23 mg-vit C 60 mg-biotin 300 mcg tablet ([facility]) Previous Rx's Medication Instructions Recorded docusate sodium 100 mg capsule 100 mg PO BID PRN Constipation #30 12/04/21 (Colace) caps diphenhydramine HCl 25 mg capsule 25 mg PO DAILY PRN allergy 04/30/22 (Benadryl) symptoms #30 caps losartan 50 mg tablet 50 mg PO DAILY #30 tabs 08/18/22 polyethylene glycol 3350 17 17 g PO DAILY #510 grams 09/29/22 gram/dose oral powder (Miralax) acetaminophen 325 mg tablet 325 mg PO QID PRN pain #20 tabs 12/24/22 (Tylenol) lidocaine 5 % topical ointment 1 appl topical BEDTIME PRN pain 01/07/23 #30 grams Allergies Allergy/AdvReac Type Severity Reaction Status Date / Time No Known Allergies Allergy Mild NOT Verified 02/21/23 13:12 APPLICABLE Review of Systems Review of Systems: Yes all other systems are reviewed and are negative Neurologic: Denies Sensory deficit (Neuro) [facility] Past Medical History Medical History ESRD on dialysis Delirium Sepsis Tachycardia Leukocytosis Fever End stage chronic kidney disease Congestive heart failure with left ventricular dysfunction ESRD (end stage renal disease) Hypertension Pulmonary congestion COVID-19 virus infection Asthma with COPD with exacerbation COVID ESRD (end stage renal disease) Hypertrophic cardiomyopathy Acute exacerbation of chronic obstructive pulmonary disease (COPD) Heart failure with preserved ejection fraction Constipation End stage renal disease on dialysis Ascites Anasarca Ischemic colitis Acute GI bleeding Anemia Dialysis patient, noncompliant Anemia in chronic kidney disease Opioid withdrawal Essential hypertension Diabetes mellitus Surgical History No pertinent past surgical history Family History Family History Other Hypertension Social History Social History Household Members: None Housing: Apartment Do you presently have visiting nurse or other home services: Yes Alcohol intake: never Patient Tobacco Use Status: Current everyday Tobacco user Tobacco use type: Cigarette Cigarettes Per Day: 2 Years Smoked: 50 +/- Smoked in Last 30 Days: Yes e-Cigarette/Vaping Use: Former Use Second Hand Smoke Exposure: No Use of substances other than those prescribed or required for medical reasons: No Substance Use Type: Crack/Cocaine Advance Directives: Yes Advance Directives on File: Yes Advance Directives Date on File: 04/17/22 service: No Current occupational status: disabled Physical Exam ED Vital Signs: Vital Signs - 24 hr 03/13/23 12:21 03/13/23 14:42 03/13/23 17:18 Temperature 98.0 F Pulse Rate 77 77 80 Respiratory Rate 18 17 16 Blood Pressure 196/75 H 202/90 H 186/82 H Pulse Oximetry 99 100 Oxygen Delivery Method Room Air Room Air BMI result Body Mass Index 27.4 Const Other: chronically ill appearing female in no acute distress Nutritional Appearance: average body habitus Orientation/consciousness: oriented to person and patient oriented x3 Limitations: no limitations HENMT Head: Yes normal to inspection Ears: external ears normal General nose exam: Normal external nose present Mouth: Normal oral and palatal mucosa present and oropharynx normal Throat: Yes posterior oropharynx normal Eyes General: appearance normal, both eyes and all related structures Neck Neck: Yes normal visual inspection Chest Chest palpation & inspection: normal inspection of the chest Resp Auscultation: clear to auscultation bilaterally Cardio Jugular venous distension: no JVD Rate: regular rate Rhythm: regular rhythm Heart sounds: S1 normal heart sound present and S2 normal heart sound present GI Inspection: Yes normal to inspection Palpation (GI): Soft to palpation, nontender and No hepatosplenomegaly present Auscultation: normal bowel sounds General: Yes no CVA tenderness Back/Spine/Pelvis Back: no CVA tenderness Skin General skin exam: no rashes or lesions noted Neuro General: oriented to person and patient oriented x3 Cranial nerves: Yes CN's II-XII intact bilaterally Motor exam (neuro): 5/5 motor strength present throughout Sensory Exam: No Sensory deficit (Neuro) Extrem General: Yes normal to inspection Psych Appearance: grossly normal Course Reevaluation(s) Reevaluation #1: Patient with syncope, hyperkalemia with normal EKG will admit for monitoring and dialysis Time: 16:09 Medications Administered Discontinued Medications Generic Name Dose Route Start Last Admin Trade Name Goyo PRN Reason Stop Dose Admin Clonidine HCl 0.2 mg 03/13/23 17:06 03/13/23 17:13 Clonidine Hcl 0.2 Mg Tablet PO 03/13/23 17:07 0.2 mg ONCE ONE Administration Protocol Sodium Zirconium Cyclosilicate 10 gm 03/13/23 17:03 03/13/23 17:14 Sodium Zirconium Cyclosilicate 10 Gm Powd.Pack PO 03/13/23 17:04 10 gm ONCE ONE Administration Medical Decision Making Medical Decision Making MDM Narrative: signed by Dr. Bai for admission patient refused to be admitted. Patient received extra dose of clonidine 0.2 mg in the ED and [place] for high potassium will be getting her dialysis tomorrow says that she almost passed out because she did not eat much all day today in the ED patient had stable vitals and had food will discharge the patient against medical advice Differential Diagnosis Differential Diagnoses: The differential diagnosis associated with the presentation includes (syncope, cardiac arrhythmia, hyperkalemia were all considered) Admission/Observation Consideration of admission/observation: Escalation of care including admission/observation considered (upon arrival patient considered for admission) Consult Healthcare Provider Management of the patient was discussed with: Hospitalist and Assistant Golf Coach (nephrology) Lab Data 03/13/23 13:56 03/13/23 13:56 Labs: Lab Results 03/13/23 Range/Units 13:56 WBC 8.2 (4.8-10.8) X10*3/uL RBC 4.10 L D (4.20-5.50) X10*6/uL Hgb 13.1 D (12.0-16.0) g/dl Hct 39.9 D (37.0-47.0) % MCV 97.3 (80.0-98.0) fL MCH 32.0 (27.0-33.0) pg MCHC 32.8 (31.0-35.0) g/dl RDW 14.0 (11.0-16.0) % Plt Count 217 (160-400) X10*3/uL MPV 10.1 (9.4-12.3) fL Immature Gran % (Auto) 0.9 H (0.0-0.4) % Neut % (Auto) 73.4 H (45-73) % Lymph % (Auto) 15.2 L (20-40) % [place] % (Auto) 5.7 (2-11) % Eos % (Auto) 4.3 H (0-4) % Baso % (Auto) 0.5 (0-2) % Lymph # (Auto) 1.3 (1.2-4.9) X10*3/uL [place] # (Auto) 0.5 (0.1-1.2) X10*3/uL Eos # (Auto) 0.4 (0.0-0.4) X10*3/uL Baso # (Auto) 0.0 (0.0-0.2) X10*3/uL Abs Immat Gran (auto) 0.07 H (0.00-0.03) X10*3/uL Absolute Neuts (auto) 6.0 (2.0-8.3) x10*3/uL Absolute Nucleated RBC 0.000 (0.0-0.012) X10*3/uL Nucleated RBC % (auto) 0.0 (0.0-0.2) /100WBC Sodium 136 (135-145) mmol/L Potassium 5.9 H (3.3-5.1) mmol/L Chloride 96 (96-108) mmol/L Carbon Dioxide 18 L (22-29) mmol/L Anion Gap 28 H (12-20) BUN 83 H (9-16) mg/dL Creatinine 11.54 H* (0.5-1.4) mg/dL Estim Creat Clear Calc 4.1 Estimated GFR 3 Random Glucose 97 (60-115) mg/dL Calcium 9.7 (8.4-10.2) mg/dL Total Bilirubin 0.5 (0.0-1.0) mg/dL AST 20 (5-31) U/L ALT 12 (0-31) U/L Alkaline Phosphatase 187 H (39-117) U/L Troponin I High Sens 17.6 H D (<3.5-17.0) ng/L Total Protein 8.2 H (6.5-8.0) g/dL Albumin 4.3 (3.5-5.0) g/dL Independent Interpretation I performed an independent interpretation of an: EKG (sinus [address] or twave changes) and Plain X-Ray (no infiltrate or effusion) Independent Historian Clinical information obtained from an independent historian. History obtained from or confirmed by: EMS External Record Review External record reviewed: Outpatient record Chronic Conditions Patient?s care impacted by: Other (renal failure on dialysis) Social Determinants Patient?s care significantly limited by Social Determinants of Health including: Alcoholism and drug addiction in family Discharge Plan Discharge Clinical Impression: Syncope, Acute hyperkalemia Patient Disposition: Admitted As Inpatient
[2023-03-13 14:01] LABS: MANUAL DIFF FLAG NO
[2023-03-13 14:08] LABS: Basophils Percent Auto 0.5 % (0-2); Eosinophils Absolute Auto 0.4 X10*3/uL (0.0-0.4); Eosinophils Percent Auto 4.3 % (0-4); Hematocrit 39.9 % (37.0-47.0); Hemoglobin 13.1 g/dl (12.0-16.0); Imm Gran Abs Auto 0.07 X10*3/uL (0.00-0.03); Imm Gran Pct Auto 0.9 % (0.0-0.4); Lymphocytes Absolute Auto 1.3 X10*3/uL (1.2-4.9); Lymphocytes Percent Auto 15.2 % (20-40); Mean Corpuscular HGB Conc 32.8 g/dl (31.0-35.0); Mean Corpuscular Volume 97.3 fL (80.0-98.0); Mean Platelet Volume 10.1 fL (9.4-12.3); Monocytes Absolute Auto 0.5 X10*3/uL (0.1-1.2); Monocytes Percent Auto 5.7 % (2-11); Neutrophils Percent Auto 73.4 % (45-73); Platelet Count 217 X10*3/uL (160-400); White Blood Count 8.2 X10*3/uL (4.8-10.8)
[2023-03-13 14:25] LABS: Troponin-I High Sensitivity 17.6 ng/L (<3.5-17.0)
[2023-03-13 14:27] LABS: Alanine Aminotransferase 12 U/L (0-31); Albumin Level 4.3 g/dL (3.5-5.0); Alkaline Phosphatase 187 U/L (39-117); Anion Gap 28 (12-20); Aspartate Amino Transferase 20 U/L (5-31); Bilirubin Total 0.5 mg/dL (0.0-1.0); Blood Urea Nitrogen 83 mg/dL (9-16); Calcium 9.7 mg/dL (8.4-10.2); Carbon Dioxide 18 mmol/L (22-29); Chloride 96 mmol/L (96-108); Creatinine Clr Calc Pharmacy 4.1; Estimated Glomerular Filt Rate 3; Glucose Random 97 mg/dL (60-115); Potassium 5.9 mmol/L (3.3-5.1); Sodium 136 mmol/L (135-145); Total Protein 8.2 g/dL (6.5-8.0)
[2023-03-13 14:42] VITALS: BP 202/90; PULSE 77; RESP 17; O2SAT 100
--- NOTE | 2023-03-13 16:16 | PHA.MEDREC ---
Pharmacy Consult ? Medication Reconciliation Pharmacy has completed the medication reconciliation. Patient is a poor historian, utilzied claim history. Jill Cohn, [place]
--- NOTE | 2023-03-13 16:37 | PM.IMHP ---
History of Present Illness Date of Service: 03/13/23 Chief Complaint: Syncope PMFSH Medical History ESRD on dialysis Delirium Sepsis Tachycardia Leukocytosis Fever End stage chronic kidney disease Congestive heart failure with left ventricular dysfunction ESRD (end stage renal disease) Hypertension Pulmonary congestion COVID-19 virus infection Asthma with COPD with exacerbation COVID ESRD (end stage renal disease) Hypertrophic cardiomyopathy Acute exacerbation of chronic obstructive pulmonary disease (COPD) Heart failure with preserved ejection fraction Constipation End stage renal disease on dialysis Ascites Anasarca Ischemic colitis Acute GI bleeding Anemia Dialysis patient, noncompliant Anemia in chronic kidney disease Opioid withdrawal Essential hypertension Diabetes mellitus Family History Other Hypertension Surgical History No pertinent past surgical history Social History Household Members: None Housing: Apartment Do you presently have visiting nurse or other home services: Yes Alcohol intake: never Patient Tobacco Use Status: Current everyday Tobacco user Tobacco use type: Cigarette Cigarettes Per Day: 2 Years Smoked: 50 +/- Smoked in Last 30 Days: Yes e-Cigarette/Vaping Use: Former Use Second Hand Smoke Exposure: No Use of substances other than those prescribed or required for medical reasons: No Substance Use Type: Crack/Cocaine Advance Directives: Yes Advance Directives on File: Yes Advance Directives Date on File: 04/17/22 service: No Current occupational status: disabled Meds Allergies Allergy/AdvReac Type Severity Reaction Status Date / Time No Known Allergies Allergy Mild NOT Verified 02/21/23 13:12 APPLICABLE Home Medications Medication Instructions Recorded Confirmed Last Taken Type buprenorphine 8 mg-naloxone 2 mg 2 strip sublingual DAILY 10/22/20 03/13/23 05/06/22 History sublingual film (Suboxone) fluticasone propionate 110 1 puff inhalation BID 04/15/21 03/13/23 Unknown History mcg/actuation HFA aerosol inhaler (Flovent HFA) melatonin 5 mg tablet 5 mg PO BEDTIME PRN Sleep 04/15/21 03/13/23 Unknown History pantoprazole 40 mg tablet,delayed 40 mg PO DAILY@0630 04/15/21 03/13/2305/06/22 History release sennosides 8.6 mg tablet (senna) 1 tab PO BEDTIME PRN constipation 05/11/21 03/13/23 Unknown History aspirin 81 mg tablet,delayed 1 tab PO DAILY 10/11/21 03/13/23 05/06/22 History release albuterol sulfate 90 mcg/actuation 2 puff inhalation Q4H PRN wheezing 01/31/22 03/13/23 Unknown History aerosol inhaler (Ventolin HFA) ondansetron 4 mg disintegrating 4 mg PO BID PRN nausea and vomiting 03/09/22 03/13/23 Unknown History tablet carvedilol 6.25 mg tablet 1 tab PO BID 04/24/22 03/13/23 05/06/22 History albuterol sulfate 2.5 mg/3 mL 1 amp inhalation TID PRN Shortness 05/08/22 03/13/23 Unknown History (0.083 %) solution for nebulization Of Breath amlodipine 10 mg tablet 10 mg PO DAILY 07/10/22 03/13/23 Unknown History hydralazine 100 mg tablet 100 mg PO TID 07/10/22 03/13/23 Unknown History isosorbide dinitrate 30 mg tablet 30 mg PO TID 07/10/22 03/13/23 Unknown History diclofenac sodium 1 % topical gel 2 g topical BID 08/31/22 03/13/23 Unknown History calcium acetate(phosphat bind) 667 1,334 mg PO TIDWM 03/13/23 03/13/23 Unknown History mg capsule calcium acetate(phosphat bind) 667 667 mg PO BID PRN TAKES WITH SNACKS 03/13/23 03/13/23 Unknown History mg capsule clonidine HCl 0.1 mg tablet 0.1 mg PO BID 03/13/23 03/13/23 Unknown History lactulose 10 gram/15 mL oral 20 g PO DAILY PRN constipation 03/13/23 03/13/23 Unknown History solution mirtazapine 15 mg tablet 15 mg PO BEDTIME 03/13/23 03/13/23 Unknown History vitamin B comp no.3-folic acid 1 1 tab PO DAILY 03/13/23 03/13/23 Unknown History mg-vit C 60 mg-biotin 300 mcg tablet ([facility]) Physical Exam Vital Signs and Narrative: Vital Signs: Last Vital Signs Temp 98.0 F 03/13/23 12:21 Pulse 77 03/13/23 14:42 Resp 17 03/13/23 14:42 BP 202/90 H 03/13/23 14:42 Pulse Ox 100 03/13/23 14:42 O2 Del Method Room Air 03/13/23 14:42 BMI result Body Mass Index 27.4 Results Labs 03/13/23 13:56 03/13/23 13:56 Labs: Laboratory Results - last 24 hr 03/13/23 13:56 MCV 97.3 MCH 32.0 MCHC 32.8 RDW 14.0 Plt Count 217 MPV 10.1 Immature Gran % (Auto) 0.9 H Neut % (Auto) 73.4 H Lymph % (Auto) 15.2 L [place] % (Auto) 5.7 Eos % (Auto) 4.3 H Baso % (Auto) 0.5 Lymph # (Auto) 1.3 [place] # (Auto) 0.5 Eos # (Auto) 0.4 Baso # (Auto) 0.0 Abs Immat Gran (auto) 0.07 H Absolute Neuts (auto) 6.0 Absolute Nucleated RBC 0.000 Nucleated RBC % (auto) 0.0 Anion Gap 28 H Estim Creat Clear Calc 4.1 Estimated GFR 3 Random Glucose 97 Calcium 9.7 Total Bilirubin 0.5 AST 20 ALT 12 Alkaline Phosphatase 187 H Total Protein 8.2 H Albumin 4.3 Imaging Radiologist's Impressions: Impressions Chest X-Ray 03/13/23 13:08 IMPRESSION: No acute cardiopulmonary process seen. Mild sclerosis left posterior seventh rib likely healing fracture as this was noted on the previous CT chest 08/31/2022 image 30/3. Assessment and Plan Time Spent With Patient Time: Total time managing care of this patient today ____ minutes.
[2023-03-13] MEDS: cloNIDine HCL 0.2 MG TABLET PO (17:13)
[2023-03-13] MEDS: Sodium Zirconium Cyclosilicate 10 GM POWD.PACK PO (17:14)
[2023-03-13 17:18] VITALS: BP 186/82; PULSE 80; RESP 16
[2023-03-13 18:24] VITALS: BP 189/66
== END 2023-03-13 18:26 | disposition left against medical advice (07) ==
PROVIDERS: Emergency Provider Emergency Medicine; PCP Internal Medicine
DX: R55 Syncope and collapse (principal); E87.5 Hyperkalemia; E11.22 Type 2 diabetes mellitus with diabetic chronic kidney disease; I13.2 Hypertensive heart and chronic kidney disease with heart failure and with stage 5 chronic kidney disease, or end stage renal disease; I50.30 Unspecified diastolic (congestive) heart failure; N18.6 End stage renal disease; D63.1 Anemia in chronic kidney disease; F17.210 Nicotine dependence, cigarettes, uncomplicated; Z99.2 Dependence on renal dialysis; Z79.82 Long term (current) use of aspirin; Z79.899 Other long term (current) drug therapy
CPT/HCPCS: 36415; 71046; 80053; 84484; 85025; 93005; 99284

== ENCOUNTER 2023-04-17 01:38 | Inpatient (IN) | payer OTHER, SELFPAY ==
--- NOTE | 2023-04-17 | ECG_ITS ---
Test Reason : ELEVATED POTTASSIUM Blood Pressure : / mmHG Vent. Rate : 074 BPM Atrial Rate : 074 BPM P-R Int : 176 ms QRS Dur : 088 ms QT Int : 394 ms P-R-T Axes : 064 -21 072 degrees QTc Int : 437 ms Normal sinus rhythm Possible Left atrial enlargement Minimal voltage criteria for LVH, may be normal variant ( [place] product ) Nonspecific ST abnormality Left axis deviation Abnormal ECG When compared with ECG of 13-MAR-2023 13:37, Questionable change in QRS axis Referred By: Damien Latif Electronically Signed By:CHRISTY AN MD
--- NOTE | ~2023-04-17 | XR_ITS ---
EXAMINATION: XR CHEST CLINICAL INFORMATION: Status post dialysis catheter removal COMPARISON: 03/13/2023 TECHNIQUE: Frontal view of the chest was obtained. FINDINGS: Interval removal of prior right IJ catheter. Lung volumes are symmetric. No focal consolidation is seen. No evidence of pneumothorax, pleural effusion, or pulmonary edema. Cardiac size is within normal limits. Calcification is present at the aortic arch. No acute osseous findings are seen. XR/XR chest 1V IMPRESSION: Interval removal of right IJ catheter. No acute cardiopulmonary findings.
--- NOTE | ~2023-04-17 | IR_ITS ---
CLINICAL HISTORY: Dislodge permacath. The patient presents to interventional radiology for placement of a new tunneled central venous catheter for hemodialysis. PROCEDURES: 1. Real-time ultrasound-guided access into the right internal jugular vein after documentation of selected vessel patency, and permanent imaging storing in the patient record. 2. Central venogram 2. Placement of a 14.5 fr 23 cm tunneled, dual-lumen hemodialysis catheter. Clinician: Tommy Yoon PA-C MEDICATIONS: -Fentanyl 75 mcg, Lidocaine 1% 10 mL SQ. -Antibiotics: Ancef -For additional details, please see nursing flowsheet. COMPLICATIONS: None. ESTIMATED BLOOD LOSS: <5 ml SPECIMENS: None FLUOROSCOPY TIME: 4.4 min PROCEDURE NOTE: The procedure, risks, benefits, and alternatives were carefully explained to patient, and written informed consent was obtained. The patient was placed supine on the fluoroscopy table. A timeout was performed. The right neck and chest was prepped and draped in usual sterile fashion. Local anesthesia was administered to the access site with lidocaine. Under ultrasound guidance, the right internal jugular vein was accessed with a 5 Fr micropuncture set. The 0.018 wire would not advance centrally. 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 The 0.018 cope wire was then reinserted and manipulated beyond the stenosis and and passed centrally. The 0.018 wire was exchanged for an 0.035 wire and advanced into the IVC to maintain access during the tunneling process. Next, subcutaneous lidocaine was administered to the chest. Using blunt dissection, a subcutaneous tunnel was created that connects from the upper chest to the venotomy site. The dialysis catheter was pulled through the tunnel. The tract in the vein was dilated and a peel-away sheath was advanced over the wire. The catheter was advanced through the sheath, which was subsequently peeled away. The catheter was tested, flushed, and sutured to the skin with its tip in the high right atrium. A permanent fluoroscopic image of the chest was saved to PACS. The catheter ports were packed with heparin per routine protocol. The patient was stable after the procedure and was transferred to the post anesthesia care unit. This procedure was performed with a dedicated nurse and continuous monitoring of vital signs. FINDINGS: 1. Patent right internal jugular vein. 2. 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 Placement of a tunneled, dual-lumen hemodialysis catheter as above. 3. Catheter flushes and aspirates very well with a 10 mL syringe. No pneumothorax. IR/IR cvc insert central tunnel IMPRESSION: Placement of a tunneled hemodialysis catheter in the right internal jugular vein. PLAN: -The catheter may be used immediately. This procedure was performed by Tommy Yoon PA-C, and directly supervised by Dr. Sargent.
--- NOTE | ~2023-04-17 | XR_ITS ---
EXAMINATION: XR FOREARM, RIGHT CLINICAL INFORMATION: Right forearm pain COMPARISON: None available. TECHNIQUE: AP and lateral views of the right forearm were obtained. FINDINGS: The bones and soft tissues are normal. No fracture. Imaged portions of the elbow and wrist are unremarkable. No opaque foreign body seen. XR/XR forearm RT 2V IMPRESSION: No acute process. No opaque foreign body identified.
[2023-04-17 01:57] VITALS: BP 140/82; BP 186/66; PULSE 68; PULSE 82; RESP 17; TEMP 37.2; O2SAT 95; O2SAT 97; BMI 25.3
[2023-04-17 02:38] LABS: Hematocrit 28.5 % (37.0-47.0); Hemoglobin 9.2 g/dl (12.0-16.0); Mean Corpuscular HGB Conc 32.3 g/dl (31.0-35.0); Mean Corpuscular Hemoglobin 31.2 pg (27.0-33.0); Mean Corpuscular Volume 96.6 fL (80.0-98.0); Mean Platelet Volume 10.2 fL (9.4-12.3); Platelet Count 181 X10*3/uL (160-400); Red Blood Count 2.95 X10*6/uL (4.20-5.50); Red Cell Distribution Width 13.7 % (11.0-16.0); White Blood Count 6.2 X10*3/uL (4.8-10.8)
--- NOTE | 2023-04-17 02:41 | ED.GENADULT ---
HPI - General Adult General Chief complaint: General Medical Stated complaint: DIALYSIS CORD BLEEDING Time Seen by Provider: 04/17/23 02:39 Source: patient Mode of arrival: EMS Limitations: no limitations History of Present Illness HPI narrative: Patient with history of diabetes hypertension end-stage renal disease dialysis via shiley catheter , patient was apparently in the bathroom and somehow her Beata catheter came out just prior to arrival patient due for dialysis Sunday and Sunday patient denies any other complaint Related Data Home Medications Medication Instructions Recorded Confirmed buprenorphine 8 mg-naloxone 2 mg 2 strip sublingual DAILY 10/22/20 03/13/23 sublingual film (Suboxone) fluticasone propionate 110 1 puff inhalation BID 04/15/21 03/13/23 mcg/actuation HFA aerosol inhaler (Flovent HFA) melatonin 5 mg tablet 5 mg PO BEDTIME PRN Sleep 04/15/21 03/13/23 pantoprazole 40 mg tablet,delayed 40 mg PO DAILY@0630 04/15/21 03/13/23 release sennosides 8.6 mg tablet (senna) 1 tab PO BEDTIME PRN constipation 05/11/21 03/13/23 aspirin 81 mg tablet,delayed 1 tab PO DAILY 10/11/21 03/13/23 release albuterol sulfate 90 mcg/actuation 2 puff inhalation Q4H PRN wheezing 01/31/22 03/13/23 aerosol inhaler (Ventolin HFA) ondansetron 4 mg disintegrating 4 mg PO BID PRN nausea and vomiting 03/09/22 03/13/23 tablet carvedilol 6.25 mg tablet 1 tab PO BID 04/24/22 03/13/23 albuterol sulfate 2.5 mg/3 mL 1 amp inhalation TID PRN Shortness 05/08/22 03/13/23 (0.083 %) solution for nebulization Of Breath amlodipine 10 mg tablet 10 mg PO DAILY 07/10/22 03/13/23 hydralazine 100 mg tablet 100 mg PO TID 07/10/22 03/13/23 isosorbide dinitrate 30 mg tablet 30 mg PO TID 07/10/22 03/13/23 diclofenac sodium 1 % topical gel 2 g topical BID 08/31/22 03/13/23 calcium acetate(phosphat bind) 667 1,334 mg PO TIDWM 03/13/23 03/13/23 mg capsule calcium acetate(phosphat bind) 667 667 mg PO BID PRN TAKES WITH SNACKS 03/13/23 03/13/23 mg capsule clonidine HCl 0.1 mg tablet 0.1 mg PO BID 03/13/23 03/13/23 lactulose 10 gram/15 mL oral 20 g PO DAILY PRN constipation 03/13/23 03/13/23 solution mirtazapine 15 mg tablet 15 mg PO BEDTIME 03/13/23 03/13/23 vitamin B comp no.3-folic acid 1 1 tab PO DAILY 03/13/23 03/13/23 mg-vit C 60 mg-biotin 300 mcg tablet ([facility]) Previous Rx's Medication Instructions Recorded docusate sodium 100 mg capsule 100 mg PO BID PRN Constipation #30 12/04/21 (Colace) caps diphenhydramine HCl 25 mg capsule 25 mg PO DAILY PRN allergy 04/30/22 (Benadryl) symptoms #30 caps losartan 50 mg tablet 50 mg PO DAILY #30 tabs 08/18/22 polyethylene glycol 3350 17 17 g PO DAILY #510 grams 09/29/22 gram/dose oral powder (Miralax) acetaminophen 325 mg tablet 325 mg PO QID PRN pain #20 tabs 12/24/22 (Tylenol) lidocaine 5 % topical ointment 1 appl topical BEDTIME PRN pain 01/07/23 #30 grams Allergies Allergy/AdvReac Type Severity Reaction Status Date / Time No Known Allergies Allergy Mild NOT Verified 02/21/23 13:12 APPLICABLE Review of Systems Review of Systems: Yes all other systems are reviewed and are negative [facility] Past Medical History Medical History ESRD on dialysis Delirium Sepsis Tachycardia Leukocytosis Fever End stage chronic kidney disease Congestive heart failure with left ventricular dysfunction ESRD (end stage renal disease) Hypertension Pulmonary congestion COVID-19 virus infection Asthma with COPD with exacerbation COVID ESRD (end stage renal disease) Hypertrophic cardiomyopathy Acute exacerbation of chronic obstructive pulmonary disease (COPD) Heart failure with preserved ejection fraction Constipation End stage renal disease on dialysis Ascites Anasarca Ischemic colitis Acute GI bleeding Anemia Dialysis patient, noncompliant Anemia in chronic kidney disease Opioid withdrawal Essential hypertension Diabetes mellitus Surgical History No pertinent past surgical history Family History Family History Other Hypertension Social History Household Members: None Housing: Apartment Do you presently have visiting nurse or other home services: Yes Alcohol intake: former Patient Tobacco Use Status: Never used Tobacco Tobacco use type: Cigarette Cigarettes Per Day: 2 Years Smoked: 50 +/- Smoked in Last 30 Days: Yes e-Cigarette/Vaping Use: Former Use Second Hand Smoke Exposure: No Use of substances other than those prescribed or required for medical reasons: No Substance Use Type: Crack/Cocaine Advance Directives: Yes Advance Directives on File: Yes Advance Directives Date on File: 04/17/22 Nutrition Risks: No Nutritional Risk service: No Current occupational status: disabled Physical Exam ED Vital Signs: Vital Signs - 24 hr 04/17/23 01:57 04/17/23 03:41 04/17/23 05:38 Temperature 98.9 F 98.6 F 98.5 F Pulse Rate 68 71 72 Respiratory Rate 17 16 16 Blood Pressure 186/66 H 189/75 H 178/74 H Pulse Oximetry 95 96 100 Oxygen Delivery Method Room Air Room Air Room Air BMI result Body Mass Index 25.3 Const Other: Appearance: Alert. Oriented X3. No acute distress. Eyes: Pale ENT: Pharynx normal. Oral Mucosa moist Neck: Normal inspection. Neck supple. CVS: Normal heart rate and rhythm. Pulses normal. Respiratory: No respiratory distress. Equal air entry bilateral, no wheezing/rales/rhonchi , Shiley catheter out Abdomen: Soft and nontender. Bowel sounds are present, no mass palpable, no CVA tenderness Skin: Skin warm and dry. Normal skin color. Normal skin turgor. Extremities: No lower extremity edema. No calf tenderness Neuro: Oriented X 3. No motor deficit. No sensory deficit.No cerebellar signs , cranial nerves II-XII intact Medications Administered Discontinued Medications Generic Name Dose Route Start Last Admin Trade Name Freq PRN Reason Stop Dose Admin Calcium Gluconate 2 gm in 100 mls @ 50 mls/hr 04/17/23 02:58 04/17/23 06:29 Calcium Gluconate IV 04/17/23 04:57 Infused ONCE ONE Infusion Ondansetron HCl 4 mg 04/17/23 03:30 04/17/23 03:33 Ondansetron Hcl 4 Mg/2 Ml Vial IVPUSH 04/17/23 03:31 4 mg ONCE ONE Administration Sodium Zirconium Cyclosilicate 10 gm 04/17/23 02:58 04/17/23 03:34 Sodium Zirconium Cyclosilicate 10 Gm Powd.Pack PO 04/17/23 02:59 10 gm ONCE ONE Administration Medical Decision Making Medical Decision Making [facility] Narrative: Patient with end-stage renal disease supposed to go for dialysis today but her Jessy catheter came out by accident will admit patient for another access and dialysis today patient does have hyperkalemia but without any EKG changes chest x-ray negative for fluid overload patient received lokelma and calcium gluconate for hyperkalemia Nephrology Dr. Ching will follow the patient on the floor, removed catheter was intact chest x-ray negative Differential Diagnosis Differential Diagnoses: The differential diagnosis associated with the presentation includes As above Admission/Observation Consideration of admission/observation: Escalation of care including admission/observation considered Consult Healthcare Provider Management of the patient was discussed with: Hospitalist Lab Data [facility] Lab Attestation statement: I reviewed the patient's lab results. 04/17/23 02:34 04/17/23 02:34 Labs: Lab Results 04/17/23 Range/Units 02:34 WBC 6.2 (4.8-10.8) X10*3/uL RBC 2.95 L D (4.20-5.50) X10*6/uL Hgb 9.2 L D (12.0-16.0) g/dl Hct 28.5 L D (37.0-47.0) % MCV 96.6 (80.0-98.0) fL MCH 31.2 (27.0-33.0) pg MCHC 32.3 (31.0-35.0) g/dl RDW 13.7 (11.0-16.0) % Plt Count 181 (160-400) X10*3/uL MPV 10.2 (9.4-12.3) fL Absolute Nucleated RBC 0.000 (0.0-0.012) X10*3/uL Nucleated RBC % (auto) 0.0 (0.0-0.2) /100WBC Sodium 139 (135-145) mmol/L Potassium 6.4 H* (3.3-5.1) mmol/L Chloride 97 (96-108) mmol/L Carbon Dioxide 24 (22-29) mmol/L Anion Gap 24 H (12-20) BUN 93 H (9-16) mg/dL Creatinine 11.38 H* (0.5-1.4) mg/dL Estim Creat Clear Calc 4.0 Estimated GFR 3 Random Glucose 111 (60-115) mg/dL Calcium 8.8 D (8.4-10.2) mg/dL Total Bilirubin 0.4 (0.0-1.0) mg/dL AST 19 (5-31) U/L ALT 15 (0-31) U/L Alkaline Phosphatase 201 H (39-117) U/L Total Protein 7.3 (6.5-8.0) g/dL Albumin 3.9 (3.5-5.0) g/dL Independent Interpretation I performed an independent interpretation of an: EKG and Plain X-Ray Interpretation: Heart rate is 74 beats per minute normal sinus rhythm LVH no acute ST-T changes no acute ischemia Radiology Impression Discussion of test interpretation with radiology: I have reviewed the radiologist's reading. Discharge Plan Discharge Clinical Impression: ESRD (end stage renal disease) on dialysis, Acute hyperkalemia Patient Disposition: Admitted As Inpatient
[2023-04-17 02:57] LABS: Alanine Aminotransferase 15 U/L (0-31); Albumin Level 3.9 g/dL (3.5-5.0); Alkaline Phosphatase 201 U/L (39-117); Anion Gap 24 (12-20); Aspartate Amino Transferase 19 U/L (5-31); Bilirubin Total 0.4 mg/dL (0.0-1.0); Blood Urea Nitrogen 93 mg/dL (9-16); Calcium 8.8 mg/dL (8.4-10.2); Carbon Dioxide 24 mmol/L (22-29); Chloride 97 mmol/L (96-108); Estimated Glomerular Filt Rate 3; Glucose Random 111 mg/dL (60-115); Potassium 6.4 mmol/L (3.3-5.1); Sodium 139 mmol/L (135-145); Total Protein 7.3 g/dL (6.5-8.0)
[2023-04-17] MEDS: ondansetron HCL 4 MG/2 ML VIAL IVPUSH ×2 (03:33→11:12)
[2023-04-17] MEDS: Calcium Gluconate/NaCl,Iso-Osm 2 GM/100 ML PLAST..BAG IV (03:34)
[2023-04-17] MEDS: Sodium Zirconium Cyclosilicate 10 GM POWD.PACK PO (03:34)
[2023-04-17 03:41] VITALS: BP 189/75; PULSE 71; RESP 16; TEMP 37; O2SAT 96
--- NOTE | 2023-04-17 03:44 | MHC.EDTECH ---
EKG taken per order and vitals were taken.
--- NOTE | 2023-04-17 04:24 | MHC.EDTECH ---
Belonging list completed and copy placed in chart
[2023-04-17 05:38] VITALS: BP 178/74; PULSE 72; RESP 16; TEMP 36.9; O2SAT 100
--- NOTE | 2023-04-17 05:44 | MHC.EDTECH ---
Hourly rounds and vitals completed.
--- NOTE | 2023-04-17 06:32 | PC.NURSE ---
Pt arrived via ambulabce, per EMS patient reports she was up to the bathroom when her dialysis cath popped out. Physical Therapist Assistant at bedside. Patient reporting headache and nausea. Multiple attempts to get IV Dr. Jacques made aware zofran given as ordered. placed IV, #22 L-hand. Meds given per orders see MAR. Pt uses walker for ambulation, denies any recent falls, BP elevated SBP 180's. MD aware, Pt alert and oriented x4, aneuric, call cruz within reach.
--- NOTE | 2023-04-17 06:34 | P.HPHOSP_ITS ---
History of Present Illness Date of Service: 04/17/23 Chief Complaint: Dialysis catheter came out 68 year old female with ESRD on HD TTS and had right chest permacath. She says was in the bathroom sitting on the toilet and the catheter came out and was bleeding a bit and call 911 and by the time she got here the bleeding had stopped. Lab show potassium of 6.4, Cr 11, BUN 93. Received calcium gluconate, Lokelma Review of Systems 2 Review of Systems: no chest pain, no sob, no dizziness. [facility] Medical History ESRD on dialysis Delirium Sepsis Tachycardia Leukocytosis Fever End stage chronic kidney disease Congestive heart failure with left ventricular dysfunction ESRD (end stage renal disease) Hypertension Pulmonary congestion COVID-19 virus infection Asthma with COPD with exacerbation COVID ESRD (end stage renal disease) Hypertrophic cardiomyopathy Acute exacerbation of chronic obstructive pulmonary disease (COPD) Heart failure with preserved ejection fraction Constipation End stage renal disease on dialysis Ascites Anasarca Ischemic colitis Acute GI bleeding Anemia Dialysis patient, noncompliant Anemia in chronic kidney disease Opioid withdrawal Essential hypertension Diabetes mellitus Family History Other Hypertension Surgical History No pertinent past surgical history Household Members: None Housing: Apartment Do you presently have visiting nurse or other home services: Yes Alcohol intake: former Patient Tobacco Use Status: Never used Tobacco Tobacco use type: Cigarette Cigarettes Per Day: 2 Years Smoked: 50 +/- e-Cigarette/Vaping Use: Former Use Second Hand Smoke Exposure: No Substance Use Type: Crack/Cocaine Advance Directives Date on File: 04/17/22 service: No Current occupational status: disabled Meds Allergies Allergy/AdvReac Type Severity Reaction Status Date / Time No Known Allergies Allergy Mild NOT Verified 02/21/23 13:12 APPLICABLE Home Medications Medication Instructions Recorded Confirmed Last Taken Type buprenorphine 8 mg-naloxone 2 mg 2 strip sublingual DAILY 10/22/20 03/13/23 05/06/22 History sublingual film (Suboxone) fluticasone propionate 110 1 puff inhalation BID 04/15/21 03/13/23 Unknown History mcg/actuation HFA aerosol inhaler (Flovent HFA) melatonin 5 mg tablet 5 mg PO BEDTIME PRN Sleep 04/15/21 03/13/23 Unknown History pantoprazole 40 mg tablet,delayed 40 mg PO DAILY@0630 04/15/21 03/13/23 05/06/22 History release sennosides 8.6 mg tablet (senna) 1 tab PO BEDTIME PRN constipation 05/11/21 03/13/23 Unknown History aspirin 81 mg tablet,delayed 1 tab PO DAILY 10/11/21 03/13/23 05/06/22 History release albuterol sulfate 90 mcg/actuation 2 puff inhalation Q4H PRN wheezing 01/31/22 03/13/23 Unknown History aerosol inhaler (Ventolin HFA) ondansetron 4 mg disintegrating 4 mg PO BID PRN nausea and vomiting 03/09/22 03/13/23 Unknown History tablet carvedilol 6.25 mg tablet 1 tab PO BID 04/24/22 03/13/23 05/06/22 History albuterol sulfate 2.5 mg/3 mL 1 amp inhalation TID PRN Shortness 05/08/22 03/13/23 Unknown History (0.083 %) solution for nebulization Of Breath amlodipine 10 mg tablet 10 mg PO DAILY 07/10/22 03/13/23 Unknown History hydralazine 100 mg tablet 100 mg PO TID 07/10/22 03/13/23 Unknown History isosorbide dinitrate 30 mg tablet 30 mg PO TID 07/10/22 03/13/23 Unknown History diclofenac sodium 1 % topical gel 2 g topical BID 08/31/22 03/13/23 Unknown History calcium acetate(phosphat bind) 667 1,334 mg PO TIDWM 03/13/23 03/13/23 Unknown History mg capsule calcium acetate(phosphat bind) 667 667 mg PO BID PRN TAKES WITH SNACKS 03/13/23 03/13/23 Unknown History mg capsule clonidine HCl 0.1 mg tablet 0.1 mg PO BID 03/13/23 03/13/23 Unknown History lactulose 10 gram/15 mL oral 20 g PO DAILY PRN constipation 03/13/23 03/13/23 Unknown History solution mirtazapine 15 mg tablet 15 mg PO BEDTIME 03/13/23 03/13/23 Unknown History vitamin B comp no.3-folic acid 1 1 tab PO DAILY 03/13/23 03/13/23 Unknown History mg-vit C 60 mg-biotin 300 mcg tablet ([facility]) Physical Exam 2 Vital Signs and Narrative: Vital Signs: Last Vital Signs Temp 98.5 F 04/17/23 05:38 Pulse 72 04/17/23 05:38 Resp 16 04/17/23 05:38 BP 178/74 H 04/17/23 05:38 Pulse Ox 100 04/17/23 05:38 O2 Del Method Room Air 04/17/23 05:38 BMI result Body Mass Index 25.3 Const: Other: Constitutional: Alert, in no distress, overweight. Mental Status: Oriented to person, place and time. Eyes: Pupils are equal, round and reactive to light. Ear, Nose and Throat: Oropharynx clear, mucous membranes moist. Respiratory: Clear to auscultation. No wheezing, rales or rhonchi. Cardiovascular: S1 S2 regular. No murmurs, rubs or gallops. Gastrointestinal: Abdomen soft, non-tender, non-distended. Normal bowel sounds.? Neurologic: Cranial nerves II-XII grossly intact. No focal neurological deficits. Moves all extremities spontaneously.? Skin: old catheter site, clean and no bleeding Musculoskeletal: No cyanosis or clubbing. Psychiatric: Normal mood and affect? Results Labs 04/17/23 02:34 04/17/23 02:34 Labs: Laboratory Results - last 24 hr 04/17/23 02:34 MCV 96.6 MCH 31.2 MCHC 32.3 RDW 13.7 Plt Count 181 MPV 10.2 Absolute Nucleated RBC 0.000 Nucleated RBC % (auto) 0.0 Anion Gap 24 H Estim Creat Clear Calc 4.0 Estimated GFR 3 Random Glucose 111 Calcium 8.8 D Total Bilirubin 0.4 AST 19 ALT 15 Alkaline Phosphatase 201 H Total Protein 7.3 Albumin 3.9 Imaging Radiologist's Impressions: Impressions Chest X-Ray 04/17/23 02:50 IMPRESSION: Interval removal of right IJ catheter. No acute cardiopulmonary findings. Assessment and Plan (1) ESRD (end stage renal disease) on dialysis: Status: Acute (2) Essential hypertension: Status: Acute Plan 68 with ESRD, HTN ESRD, lost temp cath. -NPO -IR to insert a new temp cath -Nephrology consult HyperK--received lokelma, galcium gluconate, next step dialysis, if no dialysis today then repeat lab later HTN--usually difficult to control, restart meds once med rec completed OUD - Suboxone once med rec done # tobacco abuse - continue nicotine patch dvt prophy: heparin after catheter full code admission for for minimum 2 midnights for management of hyperkalemia and need for for acute dialysis med rec not yet done Quality Stroke Does the patient have a stroke diagnosis?: No VTE Prior VTE?: No VTE Risk Level:: Medical - moderate - high VTE Device Contraindication: Treatment Not Indicated VTE Drug Contraindication: N/A - Med Ordered
--- NOTE | 2023-04-17 08:42 | P.PNIM_ITS ---
Subjective Subjective Date of Service: 04/17/23 Physical Exam 2 Vital Signs: Vital Signs: Last Vital Signs Temp 98.5 F 04/17/23 05:38 Pulse 72 04/17/23 05:38 Resp 16 04/17/23 05:38 BP 178/74 H 04/17/23 05:38 Pulse Ox 100 04/17/23 05:38 O2 Del Method Room Air 04/17/23 05:38 BMI result Body Mass Index 25.3 Objective Data Active Medications Acetaminophen (Acetaminophen 325 Mg Tablet) 650 mg PO Q6H PRN PRN Reason: Pain, Mild (Pain Scale 1-3) Heparin Sodium (Porcine) (Heparin Sodium,Porcine 5,000 Unit/Ml Vial) 5,000 unit SUBCUT BID [facility] Magnesium Hydroxide (Milk Of Magnesia 30 Ml Oral.Susp) 30 ml PO DAILY PRN PRN Reason: Constipation Melatonin (Melatonin 3 Mg Tablet) 3 mg PO BEDTIME PRN PRN Reason: Insomnia Ondansetron HCl (Ondansetron Hcl 4 Mg/2 Ml Vial) 4 mg IVPUSH Q8H PRN PRN Reason: Nausea and Vomiting Sodium Chloride (0.9 % Sodium Chloride Flush 3 Ml Syringe) 3 ml IVFLUSH QSHIFT [facility] Labs 04/17/23 02:34 04/17/23 02:34 Labs: Laboratory Results - last 24 hr 04/17/23 02:34 MCV 96.6 MCH 31.2 MCHC 32.3 RDW 13.7 Plt Count 181 MPV 10.2 Absolute Nucleated RBC 0.000 Nucleated RBC % (auto) 0.0 Anion Gap 24 H Estim Creat Clear Calc 4.0 Estimated GFR 3 Random Glucose 111 Calcium 8.8 D Total Bilirubin 0.4 AST 19 ALT 15 Alkaline Phosphatase 201 H Total Protein 7.3 Albumin 3.9 Quality Stroke Does the patient have a stroke diagnosis?: No VTE Prior VTE?: No VTE Risk Level:: Medical - moderate - high VTE Device Contraindication: Treatment Not Indicated VTE Drug Contraindication: N/A - Med Ordered
[2023-04-17] MEDS: Acetaminophen 325 MG TABLET 650 MG PO ×2 (08:50→16:01)
[2023-04-17] MEDS: 0.9 % Sodium Chloride Flush 3 ML SYRINGE IVFLUSH ×2 (08:51→21:11)
[2023-04-17 09:15] LABS: Magnesium 2.4 mg/dL (1.6-2.6)
--- NOTE | 2023-04-17 09:27 | PHA.MEDREC ---
Pharmacy Consult ? Medication Reconciliation Pharmacy has completed the medication reconciliation. Spoke to patient. Said she stopped hydralazine and calcium acetate but called provider to verify and the records show she should still be on them. Let provider know Steve
[2023-04-17] MEDS: Buprenorphine/Naloxone 8/2 mg FILM 1 FILM SUBLINGUAL ×2 (10:08→21:09)
[2023-04-17] MEDS: carvediloL 6.25 MG TABLET PO ×2 (10:09→21:09)
[2023-04-17] MEDS: Losartan Potassium 50 MG TABLET PO (10:10)
[2023-04-17] MEDS: Aspirin Enteric Coated 81 MG TABLET.DR PO (10:10)
[2023-04-17] MEDS: amLODIPine Besylate 10 MG TABLET PO (10:10)
[2023-04-17] MEDS: cloNIDine HCL 0.1 MG TABLET PO ×2 (10:10→21:09)
[2023-04-17 10:14] VITALS: BP 187/76; PULSE 64; RESP 18; O2SAT 98
--- NOTE | 2023-04-17 10:14 | PC.NURSE ---
declined hydralazie, sr on monitor, aware npo, skin wpd, alert, speech clear, otherwise medicated as ordered
--- NOTE | 2023-04-17 10:45 | P.EN_ITS ---
Event Note Date of Service: 04/17/23 Event Note: Pt seen and examined in ER D/w ER nursing staff/ attending/ Pt's son ESRD on HD Hyperkalemia [facility] Rx for high K IRto place PC HD arranged after PC - I spoke to HD nurse and orders given 2 G K diet after PC Time Spent With Patient Time: Total time managing care of this patient today ____ minutes.
[2023-04-17] MEDS: Isosorbide Dinitrate 10 MG TABLET 30 MG PO ×2 (11:10→23:15)
[2023-04-17] MEDS: Calcium Acetate 667 MG CAPSULE 1334 MG PO (11:10)
[2023-04-17 11:17] VITALS: BP 194/76; PULSE 66; RESP 17; O2SAT 98
[2023-04-17 11:32] LABS: INTERNATIONAL NORM RATIO 0.9 (0.9-1.1); Prothrombin Time 10.8 SEC (11.1-13.3)
[2023-04-17] MEDS: Lidocaine 4 % Patch ADH..PATCH 1 PATCH TRANSDERMA (11:44)
--- NOTE | 2023-04-17 14:16 | HO.RADPN ---
RADIOLOGY Narrative Narrative: Procedure Note Right permacath Findings/Events: 23 cm Permacath placed using US and Fluoro. Tip at cavoatrial junction. Ok for immediate use. Tommy TAYLOR Interventional Radiology
--- NOTE | 2023-04-17 14:37 | P.EN_ITS ---
Event Note Date of Service: 04/17/23 Event Note: 67-year-old female Citizen Of The [place]-speaking with some Malay with past medical history of ESRD on dialysis //, CHF, diabetes, asthma/COPD, hypertension admitted early this morning after right chest permacath came out on TTS schedule for dialysis. Scheduled for IR permacath placement at 1pm with HD scheduled after this. Discussed with Dr. Ardon who is following case. Gave additional 10mg Lokelma per nephro. Also received calcium gluconate in ED. K was 6.4, Cr 11, BUN 93. Plan: ESRD -IR to replace portacath -HD today per Dr. Ardon -Follow BMP Acute Hyperkalemia- due to above -K 6.4 -Given 10mg lokelma x2 per nephro -Calcium gluc in ED -MOnitor tele -Follow lytes #HTN -uncontrolled -HD today -continue home meds -Monitor BP #OUD -continue suboxone #Tobacco abuse -nicotine patch #Asthma/COPD overlap -no acute exacerbation -Continue maintenance iinhalers, albuterol prn DVT proph- heparin Full code Discussed with Dr. Combs Time Spent With Patient Time: Total time managing care of this patient today ____ minutes.
--- NOTE | 2023-04-17 15:07 | PC.NURSE ---
pt back from IR and only complaint is hunger, I contacted the hospitalist to change her diet and called the kitchen to deliver to dialysis room, pt alert, naseem,
--- NOTE | 2023-04-17 15:17 | PC.NURSE ---
pt's mona was not in the ED pyxis and the pt was off the unit for the last couple hours and did not get it, floor rn aware, pt in dialysis now
[2023-04-17 19:56] VITALS: BP 154/70; PULSE 66; RESP 18; TEMP 36.6; O2SAT 98
[2023-04-17 20:24] LABS: Glucose, Whole Blood 140 mg/dL (60-115)
[2023-04-17] MEDS: Mirtazapine 15 MG TABLET PO (21:09)
[2023-04-17] MEDS: Heparin Sodium,Porcine 5,000 UNIT/ML VIAL 5000 UNIT SUBCUT (21:10)
--- NOTE | 2023-04-17 21:28 | PC.RT ---
inhaler not on floor, Pharmacy called
[2023-04-18 03:26] VITALS: BP 165/77; PULSE 65; RESP 18; TEMP 36.3; O2SAT 97
[2023-04-18] MEDS: Acetaminophen 325 MG TABLET 650 MG PO ×2 (03:42→11:37)
[2023-04-18] MEDS: ondansetron HCL 4 MG/2 ML VIAL IVPUSH (03:49)
[2023-04-18] MEDS: Omeprazole 20 MG CAPSULE.DR PO (05:56)
[2023-04-18 06:42] LABS: Anion Gap 18 (12-20); Blood Urea Nitrogen 36 mg/dL (9-16); Carbon Dioxide 23 mmol/L (22-29); Chloride 96 mmol/L (96-108); Creatinine Clr Calc Pharmacy 7.2; Estimated Glomerular Filt Rate 7; Glucose Random 109 mg/dL (60-115); Potassium 5.8 mmol/L (3.3-5.1); Sodium 131 mmol/L (135-145)
[2023-04-18] MEDS: Fluticasone Propionate 100 MCG BLST.W.DEV 1 PUFF INHALE (07:15)
[2023-04-18 07:16] VITALS: PULSE 65; RESP 16; O2SAT 97
[2023-04-18 07:17] VITALS: BP 137/64; PULSE 59; RESP 16; TEMP 36.8; O2SAT 96
[2023-04-18 07:24] LABS: Glucose, Whole Blood 103 mg/dL (60-115)
[2023-04-18] MEDS: Lidocaine 4 % Patch ADH..PATCH 1 PATCH TRANSDERMA (08:48)
[2023-04-18] MEDS: Sodium Zirconium Cyclosilicate 10 GM POWD.PACK PO (08:48)
[2023-04-18] MEDS: Buprenorphine/Naloxone 8/2 mg FILM 1 FILM SUBLINGUAL (08:49)
[2023-04-18] MEDS: carvediloL 6.25 MG TABLET PO (08:49)
[2023-04-18] MEDS: cloNIDine HCL 0.1 MG TABLET PO (08:49)
[2023-04-18] MEDS: hydrALAZINE HCl 50 MG TABLET 100 MG PO (08:49)
[2023-04-18] MEDS: Losartan Potassium 50 MG TABLET PO (08:49)
[2023-04-18] MEDS: amLODIPine Besylate 10 MG TABLET PO (08:49)
[2023-04-18] MEDS: Calcium Acetate 667 MG CAPSULE 1334 MG PO ×2 (08:49→11:46)
[2023-04-18] MEDS: Isosorbide Dinitrate 10 MG TABLET 30 MG PO (08:49)
[2023-04-18] MEDS: 0.9 % Sodium Chloride Flush 3 ML SYRINGE IVFLUSH (08:50)
--- NOTE | 2023-04-18 09:23 | PM.EVENT ---
Event Note Date of Service: 04/18/23 Event Note: Asked to evaluate patient for bleeding at her permacath site. Right IJ permacath was placed yesterday afternoon. On exam, there are multiple reinforced dressings overlying the right chest wall. All the dressings were removed. There was a small volume of clotted blood surrounding the catheter and at the skin entry site. This was all removed and the right chest wall was cleaned. No new bleeding/oozing from the tunnel site was observed. The new pressure dressing was placed over right permacath site. Patients' RN was updated. Please contact IR department for any concerns/questions. Tommy TAYLOR Interventional Radiology Time Spent With Patient Time: Total time managing care of this patient today __15__ minutes.
[2023-04-18 10:46] LABS: MANUAL DIFF FLAG NO
--- NOTE | 2023-04-18 10:46 | P.PNNP_ITS ---
Subjective Subjective Date of Service: 04/18/23 Interval history: Pt feels OK K is 5.7 Physical Exam 2 Vital Signs: Vital Signs: Last Vital Signs Temp 98.2 F 04/18/23 07:17 Pulse 59 04/18/23 07:17 Resp 16 04/18/23 07:17 BP 137/64 04/18/23 07:17 Pulse Ox 96 04/18/23 07:17 O2 Del Method Room Air 04/18/23 07:17 BMI result Body Mass Index 25.3 Const: Other: General: Awake, alert, and oriented X3. No acute distress. HEENT: Normal inspection CVS: Normal heart rate and rhythm. Pulses normal. Respiratory: No respiratory distress Skin: Warm, dry, no rashes noted to exposed skin. Normal skin color. Normal skin turgor. Extremities: Right knee with TTP to the anterior surface of the patella. More TTP over the right lateral joint line with small effusion noted. No induration or warmth, no overlying erythema. Knee flexion to about 45 degrees. DP pulses 2+. Right calf with TTP, no obvious swelling noted. No pitting edema. Neuro: Oriented X 3. No motor deficit. No sensory deficit. Objective Data Labs 04/17/23 02:34 04/18/23 05:53 Labs: Laboratory Results - last 24 hr 04/17/23 04/17/23 04/18/23 11:10 20:20 05:53 Hold Purple Top SEE NOTE SEE NOTE PT 10.8 L INR 0.9 Sodium 131 L Potassium 5.8 H Chloride 96 Carbon Dioxide 23 Anion Gap 18 BUN 36 H Creatinine 6.29 H* Estim Creat Clear Calc 7.2 Estimated GFR 7 POC Glucose 140 H Random Glucose 109 Calcium 9.0 04/18/23 07:20 Hold Purple Top PT INR Sodium Potassium Chloride Carbon Dioxide Anion Gap BUN Creatinine Estim Creat Clear Calc Estimated GFR POC Glucose 103 Random Glucose Calcium Procedures Date of Service Date of Service: 04/18/23 Assessment & Plan Assessment and plan (1) ESRD (end stage renal disease) on dialysis: Status: Acute (2) Acute hyperkalemia: Status: Acute (3) ESRD on dialysis: Status: Inactive Assessment and Plan: End Stage Renal Disease S/P Permcath yesterday Had HD yesterday . Usually gets HD on MWF 2 Gram K, 2 Gram Na, Phos restricted diet Lokelma 1 dose given today Can be d/c'd home - HDin AM in the out pt unit D/w medical team - One more dose of Lokelma 10 g before d/c Time Spent With Patient Time: Total time managing care of this patient today ____ minutes. Progress Note: Quality Stroke Does the patient have a stroke diagnosis?: No
[2023-04-18 10:57] LABS: Basophils Percent Auto 0.3 % (0-2); Eosinophils Absolute Auto 0.2 X10*3/uL (0.0-0.4); Eosinophils Percent Auto 2.1 % (0-4); Hematocrit 29.2 % (37.0-47.0); Hemoglobin 9.5 g/dl (12.0-16.0); Imm Gran Pct Auto 1.4 % (0.0-0.4); Lymphocytes Absolute Auto 0.9 X10*3/uL (1.2-4.9); Lymphocytes Percent Auto 12.7 % (20-40); Mean Corpuscular HGB Conc 32.5 g/dl (31.0-35.0); Mean Corpuscular Hemoglobin 30.9 pg (27.0-33.0); Mean Corpuscular Volume 95.1 fL (80.0-98.0); Mean Platelet Volume 10.5 fL (9.4-12.3); Monocytes Absolute Auto 0.4 X10*3/uL (0.1-1.2); Monocytes Percent Auto 5.5 % (2-11); Neutrophils Absolute Auto 5.5 x10*3/uL (2.0-8.3); Platelet Count 218 X10*3/uL (160-400); Red Blood Count 3.07 X10*6/uL (4.20-5.50); Red Cell Distribution Width 13.8 % (11.0-16.0); White Blood Count 7.1 X10*3/uL (4.8-10.8)
[2023-04-18 11:01] LABS: INTERNATIONAL NORM RATIO 0.9 (0.9-1.1); Prothrombin Time 11.3 SEC (11.1-13.3)
[2023-04-18 11:15] LABS: Glucose, Whole Blood 124 mg/dL (60-115)
--- NOTE | 2023-04-18 11:59 | MHC.CLN ---
NUTRITION PATIENT WITH ESRD ON HEMODIALYSIS. ADDED ADDITIONAL DIET PARAMETERS PER NEPHROLOGY NOTE. DIET=DIABETIC 1800 KCALS, 2 G SODIUM, LOW POTASSIUM, LOW PHOSPHORUS.
--- NOTE | 2023-04-18 12:45 | PM.DS ---
DS: Providers Provider Date of Service: 04/18/23 Date of admission: 04/17/23 06:40 Primary care physician: Sammy Vicente MD Consults: 04/17/23 06:43 Consult to Nephrology Routine Consulting Provider: [facility] [place] [facility] Reason for consultation: ESRD, needs dialysis Has provider been notified: Yes DS: Diagnosis Discharge Diagnosis (1) ESRD (end stage renal disease) on dialysis: Status: Acute (2) Acute hyperkalemia: Status: Acute DS: Summary Hospital Course Hospital Course: HPI on admission by Dr. Gottlieb 04/17: Chief Complaint: Dialysis catheter came out 68 year old female with ESRD on HD TTS and had right chest permacath. She says was in the bathroom sitting on the toilet and the catheter came out and was bleeding a bit and call 911 and by the time she got here the bleeding had stopped. Lab show potassium of 6.4, Cr 11, BUN 93. Received calcium gluconate, [facility] Course: Pt admitted overnight for permacath replacement and HD. Nephrology consulted and followed case. Permacath replaced by IR on 04/17 and patient underwent HD following this. Blood pressures uncontrolled but improved following HD. Difficult to control at baseline despite complianace with antihypertensive agents. Overnight had bleeding at the permacath site with compression dressings applied. Evaluated by IR on morning of discharge, bleeding stopped and deemed ok to continue using. Creat improved to baseline 6.49 morning of dc with improvement in hyperkalemia to 5.8. Given lokelma 10mg x 2 per nephrology and discharged home to resume HD TTS as scheduled. Follow up with nephrology and PCP. Time Attestation Discharge coordination time: Greater than 30 minutes Quality: Safe Use of Opioids Does Pt have an Active Cancer Diagnosis on the Problem List?: No Quality: Stroke Does the patient have a stroke diagnosis?: No Physical Exam Vital Signs: Vital Signs: Last Vital Signs Temp 98.2 F 04/18/23 07:17 Pulse 59 04/18/23 07:17 Resp 16 04/18/23 07:17 BP 137/64 04/18/23 07:17 Pulse Ox 96 04/18/23 07:17 O2 Del Method Room Air 04/18/23 07:17 BMI result Body Mass Index 25.3 Constitutional - Awake and Alert, No apparent distress Eyes - PERRLA, EOMI Cardiovascular - S1S2, RRR, No edema Respiratory - Normal lung expansion, Normal respiratory effort, No respiratory distress, CTA bilaterally Gastrointestinal - NT / ND; +BS; No rebound or guarding Extremities - no calf tenderness bilaterally, no swelling Skin - Warm/Dry Neurological - Alert & oriented x3 DS: Data Data Completed and Pending Completed studies during hospitalization [Text1]: Procedures Assistance with Respiratory Ventilation, Less than 24 Consecutive Hours, Continuous Positive Airway Pressure (04/14/22) Excision of Left Kidney, Percutaneous Approach, Diagnostic (02/25/21) Excision of Right Kidney, Percutaneous Approach, Diagnostic (10/22/20) Fluoroscopy of Superior Vena Cava using Low Osmolar Contrast, Guidance (08/07/22) Insertion of Endotracheal Airway into Trachea, Via Natural or Artificial Opening (10/12/21) Insertion of Infusion Device into Right Atrium, Percutaneous Approach (08/07/22) Insertion of Infusion Device into Superior Vena Cava, Percutaneous Approach (08/07/22) Insertion of Tunneled Vascular Access Device into Chest Subcutaneous Tissue and Fascia, Percutaneous Approach (08/07/22) Performance of Urinary Filtration, Intermittent, Less than 6 Hours Per Day (08/07/22) Removal of Totally Implantable Vascular Access Device from Trunk Subcutaneous Tissue and Fascia, Open Approach (08/07/22) Respiratory Ventilation, 24-96 Consecutive Hours (10/12/21) Transfusion of Nonautologous Red Blood Cells into Peripheral Vein, Percutaneous Approach (02/25/21) Ultrasonography of Superior Vena Cava, Guidance (01/30/22) Labs on day of discharge: Laboratory Results - last 24 hr 04/17/23 04/18/23 04/18/23 20:20 05:53 07:20 WBC RBC Hgb Hct MCV MCH MCHC RDW Plt Count MPV Immature Gran % (Auto) Neut % (Auto) Lymph % (Auto) Lares % (Auto) Eos % (Auto) Baso % (Auto) Lymph # (Auto) Lares # (Auto) Eos # (Auto) Baso # (Auto) Abs Immat Gran (auto) Absolute Neuts (auto) Absolute Nucleated RBC Nucleated RBC % (auto) Hold Purple Top SEE NOTE PT INR Sodium 131 L Potassium 5.8 H Chloride 96 Carbon Dioxide 23 Anion Gap 18 BUN 36 H Creatinine 6.29 H* Estim Creat Clear Calc 7.2 Estimated GFR 7 POC Glucose 140 H 103 Random Glucose 109 Calcium 9.0 04/18/23 04/18/23 10:02 11:12 WBC 7.1 RBC 3.07 L Hgb 9.5 L Hct 29.2 L MCV 95.1 MCH 30.9 MCHC 32.5 RDW 13.8 Plt Count 218 MPV 10.5 Immature Gran % (Auto) 1.4 H Neut % (Auto) 78.0 H Lymph % (Auto) 12.7 L Lares % (Auto) 5.5 Eos % (Auto) 2.1 Baso % (Auto) 0.3 Lymph # (Auto) 0.9 L Lares # (Auto) 0.4 Eos # (Auto) 0.2 Baso # (Auto) 0.0 Abs Immat Gran (auto) 0.10 H Absolute Neuts (auto) 5.5 Absolute Nucleated RBC 0.000 Nucleated RBC % (auto) 0.0 Hold Purple Top PT 11.3 INR 0.9 Sodium Potassium Chloride Carbon Dioxide Anion Gap BUN Creatinine Estim Creat Clear Calc Estimated GFR POC Glucose 124 H Random Glucose Calcium Discharge Plan Discharge Anticipated Discharge Date/Time: 04/18/23 13:11 Patient Disposition: Home, Self-Care Discharge Diagnosis: ESRD, dialysis catheter replaced, Hyperkalemia Referrals: [facility] [Other] - 1 Week Sammy Vicente MD [Primary Care Provider] - 1 Week Discharge Medications: Continued buprenorphine-naloxone [Suboxone] 8-2 mg film 1 strip sublingual BID docusate sodium [Colace] 100 mg capsule 100 mg PO BID PRN (Reason: Constipation) Qty: 30 0RF pantoprazole 40 mg Tablet,Delayed Release (Dr/Ec) 40 mg PO DAILY@0630 melatonin 5 mg Tablet 5 mg PO BEDTIME PRN (Reason: Sleep) fluticasone propionate [Flovent HFA] 110 mcg/actuation Hfa Aerosol Inhaler 1 puff INHALATION BID sennosides [senna] 8.6 mg tablet 1 tab PO BEDTIME PRN (Reason: constipation) aspirin 81 mg tablet,delayed release (DR/EC) 1 tab PO DAILY albuterol sulfate [Ventolin HFA] 90 mcg/actuation HFA aerosol inhaler 2 puff INHALATION Q4H PRN (Reason: wheezing) ondansetron 4 mg tablet,disintegrating 4 mg PO BID PRN (Reason: nausea and vomiting) carvedilol 6.25 mg tablet 1 tab PO BID diphenhydramine HCl [Benadryl] 25 mg capsule 25 mg PO DAILY PRN (Reason: allergy symptoms) Qty: 30 0RF albuterol sulfate 2.5 mg /3 mL (0.083 %) solution for nebulization 1 amp inhalation TID PRN (Reason: Shortness Of Breath) isosorbide dinitrate 30 mg Tablet 30 mg PO TID Rx Instructions: allow nitrate-free interval of 12-14 hrs per 24-hr period amlodipine 10 mg tablet 10 mg PO DAILY Protocol: Hold for SBP< HOLD for SBP < : 90 Rx Instructions: replaces prior dose of 5 mg daily hydralazine 100 mg Tablet 100 mg PO TID losartan 50 mg Tablet 50 mg PO DAILY Qty: 30 0RF Protocol: Hold for SBP< HOLD for SBP < : 90 acetaminophen [Tylenol] 325 mg tablet 325 mg PO QID PRN (Reason: pain) Qty: 20 0RF lidocaine 5 % ointment 1 appl topical BEDTIME PRN (Reason: pain) Qty: 30 0RF clonidine HCl 0.1 mg tablet 0.1 mg PO BID mirtazapine 15 mg tablet 15 mg PO BEDTIME calcium acetate(phosphat bind) 667 mg capsule 1,334 mg PO TIDWM lactulose 10 gram/15 mL solution 20 g PO DAILY PRN (Reason: constipation) Discharge Orders: Discharge Order (Routine); Ordered 04/18/23 Ordered By: Marisa Mack Diet: Advance to usual diet Activity on Discharge: As tolerated Stand Alone Forms: Patient Portal Discharge page Care Plan Goals: see below Health Concerns: End-stage renal disease on dialysis Hyperkalemia Plan of Treatment: End-stage renal disease: -PermCath was replaced in the right chest on 04/17 -hemodialysis resumed. Evaluated by nephrology -bleeding noted at PermCath site. Reevaluated by IR, bleeding stable. No further intervention needed -Resume dialysis schedule outpatient Hyperkalemia -Potassium elevated due to end stage renal disease -Levels improved following dialysis. Resume dialysis schedule Assessment: As above. See d/c summary Discharge Date/Time: 04/18/23 15:12
--- NOTE | 2023-04-18 12:54 | MHC.CM.PN ---
pt to be dcd today Veodin notified
--- NOTE | 2023-04-19 13:51 | CONS_ITS ---
DATE OF SERVICE: 04/18/2023 REASON FOR CONSULTATION: Consult requested by the medical team to evaluate and help in management of patient with end-stage renal disease, who is presented with a dialysis catheter which is dislodged and come out. The patient is demented, elderly lady and son is at the bedside. She has ESRD on hemodialysis, dialysis TTS, history of right-sided chest PermCath and she was in the bathroom sitting up in the toilet and the catheter came out. She was having a little bit of bleeding and they called 911. The bleeding stopped. Lab work showed in the ER, potassium was 6.4, BUN of 93 and creatinine of 11. Renal consult has been requested to help with management of ESRD and for dialysis needs and management of hyperkalemia. REVIEW OF SYSTEMS: As noted above. Other system review negative. PAST MEDICAL HISTORY: History of ESRD on hemodialysis daily. History of tachycardia, leukocytosis, history of CHF, hypertension, pulmonary congestion, COVID-19 infection, asthma with COPD, hypertrophic cardiomyopathy, history of constipation, ascites, anasarca, GI bleed, anemia, opioid withdrawal, essential hypertension, type 2 diabetes mellitus. FAMILY HISTORY: Includes history of hypertension. PAST SURGICAL HISTORY: As noted in the history and physical. PERSONAL AND SOCIAL HISTORY: The patient is a former smoker. She has had history of cocaine/crack use. ALLERGIES: THE PATIENT HAS NO KNOWN DRUG ALLERGIES. MEDICATIONS: Reviewed. PHYSICAL EXAMINATION: GENERAL: The patient is resting in the bed, awake. VITAL SIGNS: Blood pressure was 178/74, pulse 72, afebrile. HEENT: Shows pupils are equal, round and reactive bilaterally to light. NECK: No jugular venous distention is noted. NECK: Supple. CARDIOVASCULAR SYSTEM: S1, S2 without rub. RESPIRATORY: Mildly decreased in bases. ABDOMEN: Soft, nontender. Bowel sounds normal. EXTREMITIES: Show trace edema. There is a right-sided PermCath exit site without any bleeding. LABORATORY DATA: Labs done recently. WBC 6.2, hemoglobin 9.2, hematocrit 28.5. Sodium 139, potassium 4.6, chloride 97, CO2 24, BUN 93, creatinine 11.38. IMPRESSION: 1. Elderly female with end-stage disease on hemodialysis, dialyzed usually on Sunday, Sunday, Sunday. 2. Dislodged PermCath. 3. Hypertension. 4. Hyperkalemia. RECOMMENDATION: At this juncture, the patient has been medically treated for hyperkalemia. There is no repeat potassium level on this patient. IR is going to do a PermCath in this patient. I have arranged hemodialysis with the patient in the inpatient dialysis unit and use in low-potassium bath during dialysis. We will try to remove fluid as tolerated. The patient needs to be on a low-potassium diet. Thank you for allowing me to participate in medical management of the patient. MD ANABELLE Henderson/GRACIE / [phone]
== END 2023-04-18 15:12 | disposition home or self-care (01) | DRG 673 ==
LOC: HO.ED 06:56 → HO.EDOVER 07:04 → HO.S3 14:39
PROVIDERS: Radiology Vascular & Interventional Radiology; Admitting Provider Internal Medicine; Emergency Provider Internal Medicine; PCP Internal Medicine; Visit Provider Physician Assistant
PROC: 0JH63XZ Insertion of Tunneled Vascular Access Device into Chest Subcutaneous Tissue and Fascia, Percutaneous Approach (ICD-10-PCS; principal; 2023-04-17 13:00)
DX: T82.42XA Displacement of vascular dialysis catheter, initial encounter (principal); N18.6 End stage renal disease; I12.0 Hypertensive chronic kidney disease with stage 5 chronic kidney disease or end stage renal disease; F11.20 Opioid dependence, uncomplicated; Y82.8 Other medical devices associated with adverse incidents; E87.5 Hyperkalemia; J44.9 Chronic obstructive pulmonary disease, unspecified; E11.22 Type 2 diabetes mellitus with diabetic chronic kidney disease; Z91.158 Patient's noncompliance with renal dialysis for other reason; Z99.2 Dependence on renal dialysis; Z79.51 Long term (current) use of inhaled steroids; Z79.82 Long term (current) use of aspirin; Z79.899 Other long term (current) drug therapy
CPT/HCPCS: 36415; 36558; 71045; 73090; 80048; 80053; 82947; 83735; 85025; 85027; 85610; 90999; 93005; 94640; 99285; C1750; C1769; J0613; J1644; J2405

== ENCOUNTER → 2023-04-17 06:40 | Outpatient (BNV) | payer OTHER, SELFPAY | PROVIDERS: Admitting Provider Internal Medicine; Emergency Provider Internal Medicine; PCP Internal Medicine; Visit Provider Physician Assistant Surgical | DX: N18.6 End stage renal disease (principal) | CPT/HCPCS: 36558; 76937; 77001; 99499 ==

== ENCOUNTER → 2023-04-17 06:40 | Outpatient (BNV) | payer OTHER, SELFPAY | PROVIDERS: Admitting Provider Internal Medicine; Emergency Provider Internal Medicine; PCP Internal Medicine; Visit Provider Physician Assistant | DX: N18.6 End stage renal disease (principal); Z99.2 Dependence on renal dialysis; I12.0 Hypertensive chronic kidney disease with stage 5 chronic kidney disease or end stage renal disease | CPT/HCPCS: 99222; 99239; 99499 ==

== ENCOUNTER 2023-05-04 14:39 | Outpatient (REF) | payer MEDICARE, SELFPAY ==
[2023-05-04 16:25] LABS: MANUAL DIFF FLAG NO
[2023-05-04 16:30] LABS: Basophils Percent Auto 0.5 % (0-2); Eosinophils Absolute Auto 0.2 X10*3/uL (0.0-0.4); Eosinophils Percent Auto 2.8 % (0-4); Hematocrit 35.6 % (37.0-47.0); Hemoglobin 11.4 g/dl (12.0-16.0); Imm Gran Abs Auto 0.02 X10*3/uL (0.00-0.03); Imm Gran Pct Auto 0.2 % (0.0-0.4); Lymphocytes Absolute Auto 1.5 X10*3/uL (1.2-4.9); Mean Corpuscular Hemoglobin 32.4 pg (27.0-33.0); Mean Corpuscular Volume 101.1 fL (80.0-98.0); Mean Platelet Volume 10.9 fL (9.4-12.3); Monocytes Absolute Auto 0.7 X10*3/uL (0.1-1.2); Monocytes Percent Auto 7.6 % (2-11); Neutrophils Percent Auto 70.9 % (45-73); Platelet Count 201 X10*3/uL (160-400); Red Blood Count 3.52 X10*6/uL (4.20-5.50); Red Cell Distribution Width 18.2 % (11.0-16.0); White Blood Count 8.5 X10*3/uL (4.8-10.8)
[2023-05-04 17:01] LABS: Alanine Aminotransferase 14 U/L (0-31); Albumin Level 4.4 g/dL (3.5-5.0); Alkaline Phosphatase 202 U/L (39-117); Anion Gap 23 (12-20); Aspartate Amino Transferase 28 U/L (5-31); Bilirubin Total 0.4 mg/dL (0.0-1.0); Blood Urea Nitrogen 50 mg/dL (9-16); Calcium 10.3 mg/dL (8.4-10.2); Carbon Dioxide 27 mmol/L (22-29); Chloride 95 mmol/L (96-108); Glucose Random 120 mg/dL (60-115); Sodium 139 mmol/L (135-145); Total Protein 8.6 g/dL (6.5-8.0)
[2023-05-04 17:06] LABS: Estimated Glomerular Filt Rate 6
== END 2023-05-04 14:40 | disposition home or self-care (01) ==
LOC: HO.HHCL 14:39
PROVIDERS: Visit Provider Registered Nurse
DX: E87.5 Hyperkalemia (principal)
CPT/HCPCS: 36415; 80053; 85025

== ENCOUNTER 2023-05-11 13:34 | Outpatient (REF) | payer OTHER, SELFPAY | END 2023-05-11 13:35 | disposition home or self-care (01) | LOC: HO.HHCLNP 13:34 | PROVIDERS: Visit Provider Emergency Medicine | DX: F11.20 Opioid dependence, uncomplicated (principal) | CPT/HCPCS: 36415; 80307 ==

== ENCOUNTER 2023-06-04 09:27 | Emergency (ER) | payer OTHER, SELFPAY ==
--- NOTE | 2023-06-04 | ECG_ITS ---
Test Reason : n/v Blood Pressure : / mmHG Vent. Rate : 063 BPM Atrial Rate : 063 BPM P-R Int : 182 ms QRS Dur : 090 ms QT Int : 434 ms P-R-T Axes : 069 -10 052 degrees QTc Int : 444 ms Normal sinus rhythm Minimal voltage criteria for LVH, may be normal variant ( Jona product ) Borderline ECG No significant changes when compared with the previous EKG of 17 apr 2023 Referred By: Generic ED Physician Electronically Signed By:SALVADOR SARABIA
--- NOTE | ~2023-06-04 | CT_ITS ---
EXAMINATION: CT ABDOMEN AND PELVIS WITHOUT CONTRAST CLINICAL INFORMATION: Abdominal pain with nausea COMPARISON: CT abdomen and pelvis 12/24/2022 TECHNIQUE: Multidetector volumetric imaging was performed from the superior aspect of the liver through the pubic symphysis. Sagittal and coronal reformatted images were obtained on the technologist's workstation. This CT examination was performed using dose optimization techniques as appropriate, variously including the following: *Automated exposure control *Adjustment of mA and/or kV according to patient size (this includes techniques or standardized protocols for targeted exams where dose is matched to indication/reason for exam; i.e. extremities or head) *Use of iterative reconstruction technique DLP: 440 mGy-cm FINDINGS: LUNG BASES: The visualized lung bases are unremarkable. LIVER, GALLBLADDER, AND BILIARY TREE: The liver is normal in size, shape, and attenuation. No focal hepatic lesion or biliary ductal dilatation is present. The gallbladder has been surgically removed. PANCREAS: Unremarkable. SPLEEN: Unremarkable. ADRENAL GLANDS: Unremarkable. KIDNEYS AND URETERS: The kidneys are normal in size, shape, and attenuation. No hydronephrosis, hydroureter, or calculi seen. No perinephric stranding. There is a large 4.6 x 4.7 cm cyst upper pole left kidney. CALCIFIED ANEURYSM at the renal hilum is stable. BLADDER: The bladder is nondistended GASTROINTESTINAL TRACT: There is scattered stool and gas in the colon without distention. ABDOMINAL WALL: Small umbilical hernia containing fat, stable. LYMPH NODES: Normal. VASCULAR: Unremarkable. PELVIC VISCERA: Unremarkable. OSSEOUS STRUCTURES: Grade 1 anterolisthesis L4-L5 with mild ventral spondylosis L3-L4, L4-L5 and L2-L3 disc levels. Superior endplate deformity with Schmorl's node L3 vertebra is stable. No aggressive lytic or sclerotic process seen. CT/CT abdomen pelvis wo IV con IMPRESSION: No acute intra-abdominal process seen. Mild constipation. Simple cyst upper pole left kidney. Cholecystectomy. Fleischner guidelines were followed.
[2023-06-04 09:34] VITALS: BP 117/60; BP 182/98; PULSE 66; RESP 18; TEMP 35.9; O2SAT 96; O2SAT 98; BMI 23.9
[2023-06-04 09:56] LABS: MANUAL DIFF FLAG NO
[2023-06-04 10:02] LABS: Basophils Percent Auto 0.6 % (0-2); Eosinophils Absolute Auto 0.5 X10*3/uL (0.0-0.4); Eosinophils Percent Auto 7.5 % (0-4); Hematocrit 37.4 % (37.0-47.0); Hemoglobin 12.1 g/dl (12.0-16.0); Imm Gran Abs Auto 0.02 X10*3/uL (0.00-0.03); Imm Gran Pct Auto 0.3 % (0.0-0.4); Lymphocytes Absolute Auto 1.1 X10*3/uL (1.2-4.9); Lymphocytes Percent Auto 16.7 % (20-40); Mean Corpuscular HGB Conc 32.4 g/dl (31.0-35.0); Mean Corpuscular Hemoglobin 32.2 pg (27.0-33.0); Mean Corpuscular Volume 99.5 fL (80.0-98.0); Mean Platelet Volume 10.3 fL (9.4-12.3); Monocytes Absolute Auto 0.5 X10*3/uL (0.1-1.2); Monocytes Percent Auto 7.5 % (2-11); Neutrophils Absolute Auto 4.3 x10*3/uL (2.0-8.3); Neutrophils Percent Auto 67.4 % (45-73); Platelet Count 208 X10*3/uL (160-400); Red Blood Count 3.76 X10*6/uL (4.20-5.50); Red Cell Distribution Width 15.3 % (11.0-16.0); White Blood Count 6.3 X10*3/uL (4.8-10.8)
[2023-06-04 10:14] LABS: Alanine Aminotransferase 14 U/L (0-31); Albumin Level 3.9 g/dL (3.5-5.0); Alkaline Phosphatase 225 U/L (39-117); Anion Gap 22 (12-20); Aspartate Amino Transferase 19 U/L (5-31); Bilirubin Total 0.4 mg/dL (0.0-1.0); Blood Urea Nitrogen 58 mg/dL (9-16); Calcium 8.8 mg/dL (8.4-10.2); Carbon Dioxide 24 mmol/L (22-29); Chloride 96 mmol/L (96-108); Estimated Glomerular Filt Rate 5; Glucose Random 140 mg/dL (60-115); Magnesium 2.1 mg/dL (1.6-2.6); Potassium 6.1 mmol/L (3.3-5.1); Sodium 136 mmol/L (135-145); Total Protein 7.6 g/dL (6.5-8.0)
[2023-06-04 10:37] LABS: COVID-19 Test Negative (Negative); IDNOW Serial# 9DB6401D
--- NOTE | 2023-06-04 11:23 | ED_ITS ---
HPI - General Adult General Chief complaint: Nausea/Vomiting/Diarrhea Stated complaint: ABD PAIN,NAUSEA/VOMITING,HANCOCK PER EMS Time Seen by Provider: 06/04/23 10:35 Source: patient and EMS Mode of arrival: EMS Limitations: no limitations History of Present Illness HPI narrative: 68-year-old female ESRD on HD T-T-S last dialysis was 2 days ago patient reported that she had a full session 4 hours came in today for 2 days of having abdominal pain, nausea, vomiting, headache, unable to have a bowel movement for the past 2 days with a decreased p.o. intake. No fever, no chills, no sick contacts, no recent travel. Related Data Home Medications Medication Instructions Recorded Confirmed buprenorphine 8 mg-naloxone 2 mg 1 strip sublingual BID 10/22/20 04/17/23 sublingual film (Suboxone) fluticasone propionate 110 1 puff inhalation BID 04/15/21 04/17/23 mcg/actuation HFA aerosol inhaler (Flovent HFA) melatonin 5 mg tablet 5 mg PO BEDTIME PRN Sleep 04/15/21 04/17/23 pantoprazole 40 mg tablet,delayed 40 mg PO DAILY@0630 04/15/21 04/17/23 release sennosides 8.6 mg tablet (senna) 1 tab PO BEDTIME PRN constipation 05/11/21 04/17/23 aspirin 81 mg tablet,delayed 1 tab PO DAILY 10/11/21 04/17/23 release albuterol sulfate 90 mcg/actuation 2 puff inhalation Q4H PRN wheezing 01/31/22 04/17/23 aerosol inhaler (Ventolin HFA) ondansetron 4 mg disintegrating 4 mg PO BID PRN nausea and vomiting 03/09/22 04/17/23 tablet carvedilol 6.25 mg tablet 1 tab PO BID 04/24/22 04/17/23 albuterol sulfate 2.5 mg/3 mL 1 amp inhalation TID PRN Shortness 05/08/22 04/17/23 (0.083 %) solution for nebulization Of Breath amlodipine 10 mg tablet 10 mg PO DAILY 07/10/22 04/17/23 hydralazine 100 mg tablet 100 mg PO TID 07/10/22 04/17/23 isosorbide dinitrate 30 mg tablet 30 mg PO TID 07/10/22 04/17/23 calcium acetate(phosphat bind) 667 1,334 mg PO TIDWM 03/13/23 04/17/23 mg capsule clonidine HCl 0.1 mg tablet 0.1 mg PO BID 03/13/23 04/17/23 lactulose 10 gram/15 mL oral 20 g PO DAILY PRN constipation 03/13/23 04/17/23 solution mirtazapine 15 mg tablet 15 mg PO BEDTIME 03/13/23 04/17/23 Previous Rx's Medication Instructions Recorded docusate sodium 100 mg capsule 100 mg PO BID PRN Constipation #30 12/04/21 (Colace) caps diphenhydramine HCl 25 mg capsule 25 mg PO DAILY PRN allergy 04/30/22 (Benadryl) symptoms #30 caps losartan 50 mg tablet 50 mg PO DAILY #30 tabs 08/18/22 acetaminophen 325 mg tablet 325 mg PO QID PRN pain #20 tabs 12/24/22 (Tylenol) lidocaine 5 % topical ointment 1 appl topical BEDTIME PRN pain 01/07/23 #30 grams Allergies Allergy/AdvReac Type Severity Reaction Status Date / Time No Known Allergies Allergy Mild NOT Verified 06/04/23 09:39 APPLICABLE Review of Systems 2 Review of Systems: All other systems are reviewed and are negative Constitutional: Reports as per HPI and Reports no additional constitutional complaints Eyes: Reports as per HPI and Reports no additional eye complaints Reports system reviewed and no additional complaints, except as documented Cardiovascular: Reports as per HPI and Reports no additional cardiovascular complaints Respiratory: Reports as per HPI and Reports no additional respiratory complaints Gastrointestinal: Reports as per HPI and Reports no additional gastrointestinal complaints Genitourinary: Reports no additional female genitourinary complaints Musculoskeletal: Reports no additional musculoskeletal complaints Skin/Breast: Reports system reviewed and no additional complaints, except as docu Psychiatric: Reports no additional psychiatric complaints Endocrine: Reports no additional endocrine complaints Hematologic/Lymphatic: Reports no additional hematologic/lymphatic complaints Allergic/Immunologic: Reports no additional allergic/immunologic complaints Reports system reviewed and no additional complaints, except as documented and Reports Abnormal speech present PMFSH Past Medical History Onset Date is defined in the Problem List Problems that require an onset date and time if occurred within 24 hrs of arrival to the ED Aortic Dissection and Rupture; Neurologic impairment; Cardiopulmonary Arrest; Endotracheal Intubation; Insertion or Replacement of Mechanical Circulatory Assist Device Medical History ESRD on dialysis Delirium Sepsis Tachycardia Leukocytosis Fever End stage chronic kidney disease Congestive heart failure with left ventricular dysfunction ESRD (end stage renal disease) Hypertension Pulmonary congestion COVID-19 virus infection Asthma with COPD with exacerbation COVID ESRD (end stage renal disease) Hypertrophic cardiomyopathy Acute exacerbation of chronic obstructive pulmonary disease (COPD) Heart failure with preserved ejection fraction Constipation End stage renal disease on dialysis Ascites Anasarca Ischemic colitis Acute GI bleeding Anemia Dialysis patient, noncompliant Anemia in chronic kidney disease Opioid withdrawal Essential hypertension Diabetes mellitus Surgical History No pertinent past surgical history Family History Family History Other Hypertension Social History Social History Household Members: None Housing: Apartment Do you presently have visiting nurse or other home services: Yes Unable to assess alcohol history related to: Unknown Alcohol intake: former Comment: pt refuses high fall risk protocol Patient Tobacco Use Status: Never used Tobacco Tobacco use type: Cigarette Cigarettes Per Day: 2 Years Smoked: 50 +/- e-Cigarette/Vaping Use: Former Use Second Hand Smoke Exposure: No Substance Use Type: Crack/Cocaine Advance Directives: Yes Advance Directives on File: Yes Advance Directives Date on File: 04/17/22 service: No Current occupational status: disabled Physical Exam ED Vital Signs: Vital Signs - 24 hr 06/04/23 09:34 06/04/23 11:34 Temperature 96.7 F L 97.7 F Pulse Rate 66 58 Respiratory Rate 18 18 Blood Pressure 117/60 129/64 Pulse Oximetry 96 99 Oxygen Delivery Method Room Air Room Air BMI result Body Mass Index 23.9 Vital signs have been reviewed and appear to be correct. Blood pressure elevated. Heart rate normal. Respiratory rate normal. Temperature normal. Oxygen saturation normal. Appearance: Alert. Oriented X3. No acute distress. Head: Normal external exam. Normocephalic. Atraumatic. No Moran signs noted. No raccoon eyes noted Eyes: PERRLA. EOMI. Conjunctiva and sclera normal. Eyelids normal. ENT: TM's Normal. Pharynx normal. Uvula midline. Moist mucous membranes. No trismus noted. No drooling noted. No muffled voice noted. Neck: Normal inspection. Neck supple. FROM. No adenopathy. Thyroid Normal. No meningeal signs. No neck mass noted. CVS: Normal heart rate and rhythm. Heart sound normal. No murmurs noted. Pulses normal throughout. Respiratory: No respiratory distress. Painless inspiration. Breath sounds normal. No wheezes/rales/rhonchi noted. Chest nontender. No accessory muscle usage noted or decreased air movement noted. Abdomen: Soft and nontender. Bowel sounds normal in all 4 quadrants. No distention noted. No organomegaly noted. No visible injury noted. Back: No CVA tenderness. Full range of motion noted. Skin: Skin warm and dry. Normal skin color. Normal skin turgor. No rashes/lesions/lacerations noted. Extremities: No lower extremity edema. Extremities exhibit normal range of motion. Extremities nontender. Neuro: Oriented X 3. Cranial nerve exam: II-XII are grossly intact No motor deficit. No sensory deficit. Reflexes normal. Course Reevaluation(s) Reevaluation #1: 68-year-old female ESRD on hemodialysis came in today for abdominal pain with nausea and vomiting, found to have hyperkalemia 6.1 with no EKG changes, patient was given 10 mg of Lokelma, patient is due for dialysis tomorrow the case was discussed with Dr. Sanders from renal who recommended to discharge the patient home and ensure the patient will show up for her dialysis session tomorrow, patient was instructed to get to dialysis tomorrow. Abdominal pain with no acute intra-abdominal finding on CT. Time: 14:16 Medications Administered Discontinued Medications Generic Name Dose Route Start Last Admin Trade Name Freq PRN Reason Stop Dose Admin Acetaminophen 650 mg 06/04/23 11:22 06/04/23 11:27 Acetaminophen 325 Mg Tablet PO 06/04/23 11:23 650 mg ONCE ONE Administration Sodium Zirconium Cyclosilicate 10 gm 06/04/23 11:19 06/04/23 11:27 Sodium Zirconium Cyclosilicate 10 Gm Powd.Pack PO 06/04/23 11:20 10 gm ONCE ONE Administration Medical Decision Making Differential Diagnosis Differential Diagnoses: The differential diagnosis associated with the presentation includes (Colitis, diverticulitis, kidney stones, electrolyte abnormality, severe anemia.) Admission/Observation Consideration of admission/observation: Escalation of care including admission/observation considered Consult Healthcare Provider Management of the patient was discussed with: Transformer Inspector (Dr. Sanders (nephrology).) Lab Data MDM Lab Attestation statement: I reviewed the patient's lab results. 06/04/23 09:52 06/04/23 09:52 Labs: Lab Results 06/04/23 Range/Units 09:52 WBC 6.3 (4.8-10.8) X10*3/uL RBC 3.76 L (4.20-5.50) X10*6/uL Hgb 12.1 (12.0-16.0) g/dl Hct 37.4 (37.0-47.0) % MCV 99.5 H (80.0-98.0) fL MCH 32.2 (27.0-33.0) pg MCHC 32.4 (31.0-35.0) g/dl RDW 15.3 (11.0-16.0) % Plt Count 208 (160-400) X10*3/uL MPV 10.3 (9.4-12.3) fL Immature Gran % (Auto) 0.3 (0.0-0.4) % Neut % (Auto) 67.4 (45-73) % Lymph % (Auto) 16.7 L (20-40) % [place] % (Auto) 7.5 (2-11) % Eos % (Auto) 7.5 H (0-4) % Baso % (Auto) 0.6 (0-2) % Lymph # (Auto) 1.1 L (1.2-4.9) X10*3/uL [place] # (Auto) 0.5 (0.1-1.2) X10*3/uL Eos # (Auto) 0.5 H (0.0-0.4) X10*3/uL Baso # (Auto) 0.0 (0.0-0.2) X10*3/uL Abs Immat Gran (auto) 0.02 (0.00-0.03) X10*3/uL Absolute Neuts (auto) 4.3 (2.0-8.3) x10*3/uL Absolute Nucleated RBC 0.000 (0.0-0.012) X10*3/uL Nucleated RBC % (auto) 0.0 (0.0-0.2) /100WBC Sodium 136 (135-145) mmol/L Potassium 6.1 H* (3.3-5.1) mmol/L Chloride 96 (96-108) mmol/L Carbon Dioxide 24 (22-29) mmol/L Anion Gap 22 H (12-20) BUN 58 H (9-16) mg/dL Creatinine 8.53 H* (0.5-1.4) mg/dL Estim Creat Clear Calc 6.0 Estimated GFR 5 Random Glucose 140 H (60-115) mg/dL Calcium 8.8 D (8.4-10.2) mg/dL Magnesium 2.1 (1.6-2.6) mg/dL Total Bilirubin 0.4 (0.0-1.0) mg/dL AST 19 (5-31) U/L ALT 14 (0-31) U/L Alkaline Phosphatase 225 H (39-117) U/L Total Protein 7.6 (6.5-8.0) g/dL Albumin 3.9 (3.5-5.0) g/dL COVID-19 (KRYSTINA) Negative (Negative) COVID-19 Clin Com See Note Independent Interpretation I performed an independent interpretation of an: CT Scan (Abdomen and pelvis: No acute intra-abdominal pathology.) Radiology Impression Discussion of test interpretation with radiology: I have reviewed the radiologist's reading. Chronic Conditions Patient?s care impacted by: Hypertension and Other (End-stage renal disease) Discharge Plan Discharge Clinical Impression: Acute hyperkalemia, Abdominal pain Patient Disposition: Home, Self-Care Instructions: Abdominal Pain (ED), Hyperkalemia (ED) Additional Instructions: It is very important to go for your dialysis scheduled tomorrow Prescriptions: No Action buprenorphine-naloxone [Suboxone] 8-2 mg film 1 strip sublingual BID docusate sodium [Colace] 100 mg capsule 100 mg PO BID PRN (Reason: Constipation) Qty: 30 0RF pantoprazole 40 mg Tablet,Delayed Release (Dr/Ec) 40 mg PO DAILY@0630 melatonin 5 mg Tablet 5 mg PO BEDTIME PRN (Reason: Sleep) fluticasone propionate [Flovent HFA] 110 mcg/actuation Hfa Aerosol Inhaler 1 puff INHALATION BID sennosides [senna] 8.6 mg tablet 1 tab PO BEDTIME PRN (Reason: constipation) aspirin 81 mg tablet,delayed release (DR/EC) 1 tab PO DAILY albuterol sulfate [Ventolin HFA] 90 mcg/actuation HFA aerosol inhaler 2 puff INHALATION Q4H PRN (Reason: wheezing) ondansetron 4 mg tablet,disintegrating 4 mg PO BID PRN (Reason: nausea and vomiting) carvedilol 6.25 mg tablet 1 tab PO BID diphenhydramine HCl [Benadryl] 25 mg capsule 25 mg PO DAILY PRN (Reason: allergy symptoms) Qty: 30 0RF albuterol sulfate 2.5 mg /3 mL (0.083 %) solution for nebulization 1 amp inhalation TID PRN (Reason: Shortness Of Breath) isosorbide dinitrate 30 mg Tablet 30 mg PO TID Rx Instructions: allow nitrate-free interval of 12-14 hrs per 24-hr period amlodipine 10 mg tablet 10 mg PO DAILY Protocol: Hold for SBP< HOLD for SBP < : 90 Rx Instructions: replaces prior dose of 5 mg daily hydralazine 100 mg Tablet 100 mg PO TID losartan 50 mg Tablet 50 mg PO DAILY Qty: 30 0RF Protocol: Hold for SBP< HOLD for SBP < : 90 acetaminophen [Tylenol] 325 mg tablet 325 mg PO QID PRN (Reason: pain) Qty: 20 0RF lidocaine 5 % ointment 1 appl topical BEDTIME PRN (Reason: pain) Qty: 30 0RF clonidine HCl 0.1 mg tablet 0.1 mg PO BID mirtazapine 15 mg tablet 15 mg PO BEDTIME calcium acetate(phosphat bind) 667 mg capsule 1,334 mg PO TIDWM lactulose 10 gram/15 mL solution 20 g PO DAILY PRN (Reason: constipation) Referrals: Sammy Vicente MD [Primary Care Provider] -
[2023-06-04] MEDS: Sodium Zirconium Cyclosilicate 10 GM POWD.PACK PO (11:27)
[2023-06-04] MEDS: Acetaminophen 325 MG TABLET 650 MG PO (11:27)
[2023-06-04 11:34] VITALS: BP 129/64; PULSE 58; RESP 18; TEMP 36.5; O2SAT 99
== END 2023-06-04 15:13 | disposition home or self-care (01) ==
PROVIDERS: Emergency Provider Emergency Medicine; PCP Internal Medicine
DX: E87.5 Hyperkalemia (principal); R10.9 Unspecified abdominal pain; R11.2 Nausea with vomiting, unspecified; R51.9 Headache, unspecified; R94.31 Abnormal electrocardiogram [ECG] [EKG]; F17.210 Nicotine dependence, cigarettes, uncomplicated; Z71.6 Tobacco abuse counseling; Z79.899 Other long term (current) drug therapy; Z11.52 Encounter for screening for COVID-19
CPT/HCPCS: 36415; 74176; 80053; 83735; 85025; 87635; 93005; 99283; 99284

== ENCOUNTER → 2023-06-04 09:43 | Outpatient (BNV) | payer OTHER, SELFPAY | PROVIDERS: Emergency Provider Emergency Medicine; PCP Internal Medicine; Visit Provider Internal Medicine | DX: R94.31 Abnormal electrocardiogram [ECG] [EKG] (principal) | CPT/HCPCS: 93010 ==

== ENCOUNTER 2023-06-08 11:29 | Outpatient (REF) | payer OTHER, SELFPAY | END 2023-06-08 11:30 | disposition home or self-care (01) | LOC: HO.HHCLNP 11:29 | PROVIDERS: Visit Provider Emergency Medicine | DX: F11.20 Opioid dependence, uncomplicated (principal) | CPT/HCPCS: 36415; 80307 ==

== ENCOUNTER 2023-08-26 12:05 | Emergency (ER) | payer OTHER, SELFPAY ==
--- NOTE | ~2023-08-26 | XR_ITS ---
EXAMINATION: XR ABDOMEN KUB CLINICAL INDICATION: No bowel movement for 5 days, abdominal pain. COMPARISON: CT abdomen/pelvis 06/04/2023. TECHNIQUE: AP view of the abdomen. FINDINGS: Nonobstructive bowel gas pattern. Large amount of stool throughout the colon. Visualized lung bases are clear. No acute issues findings. Right upper quadrant surgical clips. XR/XR KUB IMPRESSION: 1. Nonobstructive bowel gas pattern. 2. Large amount of stool throughout the colon.
[2023-08-26 12:12] VITALS: BP 182/82; PULSE 63; O2SAT 95
[2023-08-26 12:16] VITALS: BP 200/74; PULSE 92; RESP 19; TEMP 37.3; O2SAT 98
--- NOTE | 2023-08-26 12:26 | ED.GENADULT ---
HPI - General Adult General Chief complaint: General Medical Stated complaint: N/V SINCE 5AM PER EMS Time Seen by Provider: 08/26/23 12:25 Source: patient, EMS and RN notes reviewed Mode of arrival: EMS Limitations: no limitations History of Present Illness HPI narrative: Patient is a 68-year-old female with history of DM, HTN, COPD, HF, hypertrophic cardiomyopathy, ESRD on dialysis //, received full treatment yesterday, presenting to the emergency department with complaint of nausea, vomiting, constipation, lower abdominal pain, and rectal pain. Reports no bowel movement for the past 5 days. Reports history of hemorrhoids and complains of bright red blood when wiping after using the bathroom. Denies any hematemesis. Denies fevers. States she has been taking senna, colace, Miralax, and lactulose without relief of constipation. MD complaint: abdominal pain, nausea, vomiting Onset (ago): day(s) Location: abdomen Radiation: non-radiation Severity: moderate Quality: aching Pain Consistency: colicky Associated symptoms: nausea/vomiting and other Treatments prior to arrival: none Related Data Home Medications ?Medication ?Instructions ?Recorded ?Confirmed buprenorphine 8 mg-naloxone 2 mg 1 strip sublingual BID 10/22/20 04/17/23 sublingual film (Suboxone) fluticasone propionate 110 1 puff inhalation BID 04/15/21 04/17/23 mcg/actuation HFA aerosol inhaler (Flovent HFA) melatonin 5 mg tablet 5 mg PO BEDTIME PRN Sleep 04/15/21 04/17/23 pantoprazole 40 mg tablet,delayed 40 mg PO DAILY@0630 04/15/21 04/17/23 release sennosides 8.6 mg tablet (senna) 1 tab PO BEDTIME PRN constipation 05/11/21 04/17/23 aspirin 81 mg tablet,delayed 1 tab PO DAILY 10/11/21 04/17/23 release albuterol sulfate 90 mcg/actuation 2 puff inhalation Q4H PRN wheezing 01/31/22 04/17/23 aerosol inhaler (Ventolin HFA) ondansetron 4 mg disintegrating 4 mg PO BID PRN nausea and vomiting 03/09/22 04/17/23 tablet carvedilol 6.25 mg tablet 1 tab PO BID 04/24/22 04/17/23 albuterol sulfate 2.5 mg/3 mL 1 amp inhalation TID PRN Shortness 05/08/22 04/17/23 (0.083 %) solution for nebulization Of Breath amlodipine 10 mg tablet 10 mg PO DAILY 07/10/22 04/17/23 hydralazine 100 mg tablet 100 mg PO TID 07/10/22 04/17/23 isosorbide dinitrate 30 mg tablet 30 mg PO TID 07/10/22 04/17/23 calcium acetate(phosphat bind) 667 1,334 mg PO TIDWM 03/13/23 04/17/23 mg capsule clonidine HCl 0.1 mg tablet 0.1 mg PO BID 03/13/23 04/17/23 lactulose 10 gram/15 mL oral 20 g PO DAILY PRN constipation 03/13/23 04/17/23 solution mirtazapine 15 mg tablet 15 mg PO BEDTIME 03/13/23 04/17/23 Previous Rx's ?Medication ?Instructions ?Recorded docusate sodium 100 mg capsule 100 mg PO BID PRN Constipation #30 12/04/21 (Colace) caps diphenhydramine HCl 25 mg capsule 25 mg PO DAILY PRN allergy 04/30/22 (Benadryl) symptoms #30 caps losartan 50 mg tablet 50 mg PO DAILY #30 tabs 08/18/22 acetaminophen 325 mg tablet 325 mg PO QID PRN pain #20 tabs 12/24/22 (Tylenol) lidocaine 5 % topical ointment 1 appl topical BEDTIME PRN pain 01/07/23 #30 grams peg 3350-electrolytes 236 240 ml PO Q2H PRN constipation 08/26/23 gram-22.74 gram-6.74 gram-5.86 #4,000 mL gram solution (Golytely) sodium zirconium cyclosilicate 10 10 g PO BID hyperkalemia #3 ea 08/26/23 gram oral powder packet (Lokelma) Allergies Allergy/AdvReac Type Severity Reaction Status Date / Time No Known Allergies Allergy Mild NOT Verified 08/26/23 12:31 APPLICABLE Review of Systems Review of Systems: As per HPI. Yes all other systems are reviewed and are negative PMFSH Past Medical History Medical History ESRD on dialysis Delirium Sepsis Tachycardia Leukocytosis Fever End stage chronic kidney disease Congestive heart failure with left ventricular dysfunction ESRD (end stage renal disease) Hypertension Pulmonary congestion COVID-19 virus infection Asthma with COPD with exacerbation COVID ESRD (end stage renal disease) Hypertrophic cardiomyopathy Acute exacerbation of chronic obstructive pulmonary disease (COPD) Heart failure with preserved ejection fraction Constipation End stage renal disease on dialysis Ascites Anasarca Ischemic colitis Acute GI bleeding Anemia Dialysis patient, noncompliant Anemia in chronic kidney disease Opioid withdrawal Essential hypertension Diabetes mellitus Surgical History (Reviewed 06/04/23 @ 11: by Amos Bryant MD) No pertinent past surgical history Family History Family History (Reviewed 06/04/23 @ 11: by Amos Bryant MD) Other Hypertension Social History Social History (Reviewed 06/04/23 @ : by Amos Bryant MD) Household Members: None Housing: Apartment Do you presently have visiting nurse or other home services: Yes Unable to assess alcohol history related to: Unknown Alcohol intake: former Comment: pt refuses high fall risk protocol Patient Tobacco Use Status: Never used Tobacco Tobacco use type: Cigarette Cigarettes Per Day: 2 Years Smoked: 50 +/- Smoked in Last 30 Days: Yes e-Cigarette/Vaping Use: Former Use Second Hand Smoke Exposure: No Use of substances other than those prescribed or required for medical reasons: No Substance Use Type: Crack/Cocaine Substance Use Type Other:: suboxone Advance Directives: Yes Advance Directives on File: Yes Advance Directives Date on File: 04/17/22 service: No Current occupational status: disabled Physical Exam ED Vital Signs: Vital Signs - 24 hr 08/26/23 12:16 08/26/23 12:28 08/26/23 16:05 Temperature 99.1 F 99.1 F Pulse Rate 92 92 78 Respiratory Rate 19 18 16 Blood Pressure 200/74 H 200/74 H 152/73 H Pulse Oximetry 98 98 97 Oxygen Delivery Method Room Air Room Air Room Air BMI result Body Mass Index 27.8 Vital signs have been reviewed and appear to be correct. Blood pressure hypertensive. Heart rate normal. Respiratory rate normal. Temperature normal. Oxygen saturation normal. Const General: cooperative, no acute distress, alert and awake Orientation/consciousness: patient oriented x3 HENMT Head: Yes normocephalic and Yes atraumatic Ears: hearing grossly normal bilaterally and external ears normal General nose exam: Normal external nose present and Normal nasal mucous membranes and turbinates present Mouth: Normal oral and palatal mucosa present Throat: Yes posterior oropharynx normal and Yes uvula midline Eyes Pupils: Equal, round and reactive pupils present Neck Neck: Yes normal visual inspection, Yes full ROM, Yes no lymphadenopathy, Yes no meningeal signs and Yes trachea midline Chest Chest palpation & inspection: normal inspection of the chest and normal palpation of entire chest wall Resp Effort & Inspection: normal respiratory effort Auscultation: clear to auscultation bilaterally Cardio Rate: regular rate Rhythm: regular rhythm Heart sounds: S1 normal heart sound present and S2 normal heart sound present Peripheral pulses: Peripheral pulses 2+ throughout GI Other: Rectal exam chaperoned by CELIO Diaz. Palpation (GI): Soft to palpation and nontender Auscultation: normoactive bowel sounds Rectal Exam - Female: visual inspection normal, normal sphincter tone, No fecal impaction and hemorrhoids General: Yes no CVA tenderness Back/Spine/Pelvis Back: no CVA tenderness Skin General skin exam: elasticity normal and turgor normal Neuro General: patient oriented x3, tone normal, moves all extremities, Normal light touch and pain sensation, no meningeal signs, no focal motor deficits, CN's II-XI intact bilaterally and deep tendon reflexes 2+ bilaterally Cranial nerves: Yes Equal, round and reactive pupils present Motor exam (neuro): 5/5 motor strength present throughout Extrem General: Yes normal to inspection, Yes full ROM, Yes capillary refill normal, Yes no pedal edema and Yes no calf tenderness Course Reevaluation(s) Reevaluation #1: Patient received in sign-out at change of shift pending enema. The patient was unable to tolerate the enema. We will treat with GoLYTELY 1 cup every 2 hours until the patient has a large bowel. Patient's repeat troponins flat and she is stable for discharge Time: 16:34 Medications Administered Discontinued Medications Generic Name Dose Route Start Last Admin Trade Name Freq PRN Reason Stop Dose Admin Acetaminophen 650 mg 08/26/23 14:08 08/26/23 14:46 Acetaminophen 325 Mg Tablet PO 08/26/23 14:09 650 mg ONCE ONE Administration Amlodipine Besylate 5 mg 08/26/23 15:45 08/26/23 16:07 Amlodipine Besylate 5 Mg Tablet PO 08/26/23 15:46 5 mg ONCE ONE Administration Protocol Ondansetron HCl 4 mg 08/26/23 13:22 08/26/23 13:26 Ondansetron Odt 4 Mg Tab.Lawson NICOLEINGU 08/26/23 13:23 4 mg ONCE ONE Administration Sodium Zirconium Cyclosilicate 10 gm 08/26/23 14:09 08/26/23 14:46 Sodium Zirconium Cyclosilicate 10 Gm Powd.Pack PO 08/26/23 14:10 10 gm ONCE ONE Administration Medical Decision Making Medical Decision Making MDM Narrative: Patient is a 68-year-old female with history of DM, HTN, COPD, HF, hypertrophic cardiomyopathy, ESRD on dialysis //, received full treatment yesterday, presenting to the emergency department with complaint of nausea, vomiting, constipation, lower abdominal pain, and rectal pain. On exam patient is awake, A+Ox3, hypertensive, VS otherwise WNL, afebrile, normal neurological exam without focal deficits, physical exam findings as above. Given reported symptoms and physical exam findings, initial differential includes constipation, diverticulitis, colitis, electrolyte abnormality, anemia. Labs notable for hyperkalemia of 6.2, chronically elevated troponin of 29.1, will obtain delta, chronically elevated creatinine due to ESRD. X-ray notable for large amount of stool throughout the colon, no evidence of obstruction. My interpretation is in agreement with the radiologist's interpretation. Case discussed with Dr. Sanders from nephrology who recommends Lokelma 10mg BID today and tomorrow, then regularly scheduled dialysis on Sunday. Amlodipine ordered as patient is hypertensive and states that although she took her amlodipine this morning, she vomited immediately afterwards. Soapsuds enema ordered for constipation. Patient signed out to BRANDON Rene pending repeat troponin, reassessment of HTN, and results of enema. Discussed with patient via pre sales systems engineer that she will need to take the additional dose of Lokelma tonight as well as twice tomorrow. Differential Diagnosis Differential Diagnoses: The differential diagnosis associated with the presentation includes As per MDM. Admission/Observation Consideration of admission/observation: Escalation of care including admission/observation considered Patient would have been admitted to the hospital had their work up had any findings where hospital admission was appropriate and their clinical presentation warranted hospital admission. Consult Healthcare Provider Management of the patient was discussed with: College Teacher (Dr. Sanders, nephrology) Lab Data [facility] Lab Attestation statement: I reviewed the patient's lab results. As per [facility]. 08/26/23 12:59 08/26/23 12:59 Labs: Lab Results 08/26/23 08/26/23 Range/Units 12:59 16:09 WBC 8.9 (4.8-10.8) X10*3/uL RBC 3.79 L (4.20-5.50) X10*6/uL Hgb 12.0 (12.0-16.0) g/dl Hct 36.9 L (37.0-47.0) % MCV 97.4 (80.0-98.0) fL MCH 31.7 (27.0-33.0) pg MCHC 32.5 (31.0-35.0) g/dl RDW 14.9 (11.0-16.0) % Plt Count 191 (160-400) X10*3/uL MPV 10.7 (9.4-12.3) fL Immature Gran % (Auto) 0.3 (0.0-0.4) % Neut % (Auto) 70.4 (45-73) % Lymph % (Auto) 16.2 L (20-40) % [place] % (Auto) 8.0 (2-11) % Eos % (Auto) 4.7 H (0-4) % Baso % (Auto) 0.4 (0-2) % Lymph # (Auto) 1.4 (1.2-4.9) X10*3/uL [place] # (Auto) 0.7 (0.1-1.2) X10*3/uL Eos # (Auto) 0.4 (0.0-0.4) X10*3/uL Baso # (Auto) 0.0 (0.0-0.2) X10*3/uL Abs Immat Gran (auto) 0.03 (0.00-0.03) X10*3/uL Absolute Neuts (auto) 6.3 (2.0-8.3) x10*3/uL Absolute Nucleated RBC 0.000 (0.0-0.012) X10*3/uL Nucleated RBC % (auto) 0.0 (0.0-0.2) /100WBC Sodium 136 (135-145) mmol/L Potassium 6.2 H* (3.3-5.1) mmol/L Chloride 91 L (96-108) mmol/L Carbon Dioxide 31 H (22-29) mmol/L Anion Gap 20 (12-20) BUN 53 H (9-16) mg/dL Creatinine 6.06 H* (0.5-1.4) mg/dL Estim Creat Clear Calc 7.8 Estimated GFR 7 Random Glucose 167 H (60-115) mg/dL Calcium 10.3 H D (8.4-10.2) mg/dL Magnesium 2.2 (1.6-2.6) mg/dL Total Bilirubin 0.3 (0.0-1.0) mg/dL AST 22 (5-31) U/L ALT 20 (0-31) U/L Alkaline Phosphatase 289 H (39-117) U/L Troponin I High Sens 29.1 H D 29.2 H (<3.5-17.0) ng/L Total Protein 8.7 H (6.5-8.0) g/dL Albumin 4.3 (3.5-5.0) g/dL Influenza Type A (PCR) NEGATIVE (Negative) Influenza Type B (PCR) NEGATIVE (Negative) RSV RNA Qual (PCR) NEGATIVE (Negative) SARS-CoV-2 RNA (RT-PCR) NEGATIVE (Negative) Independent Interpretation I performed an independent interpretation of an: Plain X-Ray Interpretation: KUB notable for constipation, no obstruction Radiology Impression Discussion of test interpretation with radiology: I have reviewed the radiologist's reading. Radiologist Impression: XR/XR KUB IMPRESSION: 1. Nonobstructive bowel gas pattern. 2. Large amount of stool throughout the colon. External Record Review External record reviewed: Inpatient record, Office record and Outpatient record Prescription Management I considered prescription management with: Other Discharge Plan Discharge Clinical Impression: Hyperkalemia, Constipation Patient Disposition: Still a Patient Instructions: Constipation (DC), Hyperkalemia (ED) Additional Instructions: You were seen in the emergency department today for constipation and your symptoms improved after receiving an enema. Your potassium was noted to be high on your labs. You were medicated with Lokelma to decrease your potassium level in the emergency department. You will need to take another dose tonight and two additional doses tomorrow. It is important that you receive your regularly scheduled dialysis treatment on Sunday. Please follow up with your primary care provider this week. Return to the emergency department if you develop fever 100.4F or greater, worsening abdominal pain, persistent vomiting, chest pain, shortness of breath, or any other concerning symptoms. Prescriptions: New Lokelma 10 gram powder in packet 10 g PO BID Qty: 3 0RF Rx Instructions: Take one dose tonight, 08/26/23, then two more doses tomorrow. peg 3350-electrolytes [Golytely] 236-22.74-6.74 -5.86 gram recon soln 240 ml PO Q2H PRN (Reason: constipation) Qty: 4000 0RF Rx Instructions: until you have a large bowel movement No Action buprenorphine-naloxone [Suboxone] 8-2 mg film 1 strip sublingual BID docusate sodium [Colace] 100 mg capsule 100 mg PO BID PRN (Reason: Constipation) Qty: 30 0RF pantoprazole 40 mg Tablet,Delayed Release (Dr/Ec) 40 mg PO DAILY@0630 melatonin 5 mg Tablet 5 mg PO BEDTIME PRN (Reason: Sleep) fluticasone propionate [Flovent HFA] 110 mcg/actuation Hfa Aerosol Inhaler 1 puff INHALATION BID sennosides [senna] 8.6 mg tablet 1 tab PO BEDTIME PRN (Reason: constipation) aspirin 81 mg tablet,delayed release (DR/EC) 1 tab PO DAILY albuterol sulfate [Ventolin HFA] 90 mcg/actuation HFA aerosol inhaler 2 puff INHALATION Q4H PRN (Reason: wheezing) ondansetron 4 mg tablet,disintegrating 4 mg PO BID PRN (Reason: nausea and vomiting) carvedilol 6.25 mg tablet 1 tab PO BID diphenhydramine HCl [Benadryl] 25 mg capsule 25 mg PO DAILY PRN (Reason: allergy symptoms) Qty: 30 0RF albuterol sulfate 2.5 mg /3 mL (0.083 %) solution for nebulization 1 amp inhalation TID PRN (Reason: Shortness Of Breath) isosorbide dinitrate 30 mg Tablet 30 mg PO TID Rx Instructions: allow nitrate-free interval of 12-14 hrs per 24-hr period amlodipine 10 mg tablet 10 mg PO DAILY Protocol: Hold for SBP< HOLD for SBP < : 90 Rx Instructions: replaces prior dose of 5 mg daily hydralazine 100 mg Tablet 100 mg PO TID losartan 50 mg Tablet 50 mg PO DAILY Qty: 30 0RF Protocol: Hold for SBP< HOLD for SBP < : 90 acetaminophen [Tylenol] 325 mg tablet 325 mg PO QID PRN (Reason: pain) Qty: 20 0RF lidocaine 5 % ointment 1 appl topical BEDTIME PRN (Reason: pain) Qty: 30 0RF clonidine HCl 0.1 mg tablet 0.1 mg PO BID mirtazapine 15 mg tablet 15 mg PO BEDTIME calcium acetate(phosphat bind) 667 mg capsule 1,334 mg PO TIDWM lactulose 10 gram/15 mL solution 20 g PO DAILY PRN (Reason: constipation) Print Language: Bahamian
--- NOTE | 2023-08-26 12:27 | ECG_ITS ---
Test Reason : ABD PAIN Blood Pressure : / mmHG Vent. Rate : 087 BPM Atrial Rate : 087 BPM P-R Int : 168 ms QRS Dur : 084 ms QT Int : 378 ms P-R-T Axes : 061 -21 043 degrees QTc Int : 454 ms Normal sinus rhythm Possible Left atrial enlargement Left ventricular hypertrophy ( R in aVL , [place]k product ) Abnormal ECG When compared with ECG of 04-JUN-2023 09:43, No significant change was found Referred By: Quynh Espinoza Electronically Signed By:Charan Hankins
[2023-08-26 12:28] VITALS: BP 200/74; PULSE 92; RESP 18; TEMP 37.3; O2SAT 98; BMI 27.8
--- NOTE | 2023-08-26 12:32 | PC.NURSE ---
Pt coming from home via EMS. Pt Azeri speaking only, jewelry coater utilized. Pt reports 5 days of rectum pain and pressure, 02/27, unable to have bowel movement. Pt also reports bright red blood when wiping, does have hx of hemorrhoids and had surgery long time ago . Pt reports she has tried laxatives with no relief. Pt also reports nausea, vomiting and abdominal pain (only when eating, 07/28) since she had her dialysis treatment yesterday. Pt received full dialysis rx yesterday, has port on right side of chest, goes Tue/Thurs/Sat. Pt reports chronic issue of N/V and ABD pain after dialysis. Pt is alert and oriented, breathing even and unlabored, skin WNL. Pt noted to have intermittent episodes of dry heaving, no emesis noted.
[2023-08-26 13:05] LABS: MANUAL DIFF FLAG NO
[2023-08-26 13:10] LABS: Basophils Percent Auto 0.4 % (0-2); Eosinophils Absolute Auto 0.4 X10*3/uL (0.0-0.4); Eosinophils Percent Auto 4.7 % (0-4); Hematocrit 36.9 % (37.0-47.0); Imm Gran Abs Auto 0.03 X10*3/uL (0.00-0.03); Imm Gran Pct Auto 0.3 % (0.0-0.4); Lymphocytes Absolute Auto 1.4 X10*3/uL (1.2-4.9); Lymphocytes Percent Auto 16.2 % (20-40); Mean Corpuscular HGB Conc 32.5 g/dl (31.0-35.0); Mean Corpuscular Hemoglobin 31.7 pg (27.0-33.0); Mean Corpuscular Volume 97.4 fL (80.0-98.0); Mean Platelet Volume 10.7 fL (9.4-12.3); Monocytes Absolute Auto 0.7 X10*3/uL (0.1-1.2); Neutrophils Absolute Auto 6.3 x10*3/uL (2.0-8.3); Neutrophils Percent Auto 70.4 % (45-73); Platelet Count 191 X10*3/uL (160-400); Red Blood Count 3.79 X10*6/uL (4.20-5.50); Red Cell Distribution Width 14.9 % (11.0-16.0); White Blood Count 8.9 X10*3/uL (4.8-10.8)
[2023-08-26] MEDS: Ondansetron ODT 4 MG TAB.RAPDIS TRANSLINGU (13:26)
[2023-08-26 13:35] LABS: Troponin-I High Sensitivity 29.1 ng/L (<3.5-17.0)
[2023-08-26 13:45] LABS: Influenza A PCR NEGATIVE (Negative); Influenza B PCR NEGATIVE (Negative); Resp Syncy Virus RNA Qual PCR NEGATIVE (Negative); SARS COV2 PCR INHOUSE NEGATIVE (Negative)
[2023-08-26 14:05] LABS: Alanine Aminotransferase 20 U/L (0-31); Albumin Level 4.3 g/dL (3.5-5.0); Alkaline Phosphatase 289 U/L (39-117); Anion Gap 20 (12-20); Aspartate Amino Transferase 22 U/L (5-31); Bilirubin Total 0.3 mg/dL (0.0-1.0); Blood Urea Nitrogen 53 mg/dL (9-16); Calcium 10.3 mg/dL (8.4-10.2); Carbon Dioxide 31 mmol/L (22-29); Chloride 91 mmol/L (96-108); Creatinine Clr Calc Pharmacy 7.8; Estimated Glomerular Filt Rate 7; Glucose Random 167 mg/dL (60-115); Magnesium 2.2 mg/dL (1.6-2.6); Potassium 6.2 mmol/L (3.3-5.1); Sodium 136 mmol/L (135-145); Total Protein 8.7 g/dL (6.5-8.0)
[2023-08-26] MEDS: Sodium Zirconium Cyclosilicate 10 GM POWD.PACK PO (14:46)
[2023-08-26] MEDS: Acetaminophen 325 MG TABLET 650 MG PO (14:46)
--- NOTE | 2023-08-26 15:18 | PC.NURSE ---
Pt moved to room 20. Rectal exam completed by Quynh LOPEZ, this RN to broomcorn grader. No stool in rectum per Quynh to collect for occult, no aziza bleeding noted. Plan for KUB and consult with nephro regarding K+ Medicated as charted Pt requesting food, encouraged to await further dispo
[2023-08-26 16:05] VITALS: BP 152/73; PULSE 78; RESP 16; O2SAT 97
[2023-08-26] MEDS: amLODIPine Besylate 5 MG TABLET PO (16:07)
[2023-08-26 16:33] LABS: Troponin-I High Sensitivity 29.2 ng/L (<3.5-17.0)
--- NOTE | 2023-08-26 16:35 | PC.NURSE ---
RN attempted soap evelia enema, pt unable to tolerate procedure, no bowel movement. Pt is able to pass gas. Provider aware.
[2023-08-26 17:21] VITALS: BP 158/81; PULSE 81; RESP 17; TEMP 37; O2SAT 98
== END 2023-08-26 17:26 | disposition still patient (30) ==
PROVIDERS: Registered Nurse Emergency; Emergency Provider Student in an Organized Health Care Education/Training Program
DX: E87.5 Hyperkalemia (principal); R11.2 Nausea with vomiting, unspecified; K59.00 Constipation, unspecified; R94.31 Abnormal electrocardiogram [ECG] [EKG]; Z79.899 Other long term (current) drug therapy; Z03.818 Encounter for observation for suspected exposure to other biological agents ruled out
CPT/HCPCS: 0241U; 36415; 74018; 80053; 83735; 84484; 85025; 93005; 99284

== ENCOUNTER → 2023-08-26 12:27 | Outpatient (BNV) | payer OTHER, SELFPAY | PROVIDERS: Emergency Provider Student in an Organized Health Care Education/Training Program; Visit Provider Internal Medicine Cardiovascular Disease | DX: R94.31 Abnormal electrocardiogram [ECG] [EKG] (principal) | CPT/HCPCS: 93010 ==

== ENCOUNTER 2023-08-31 16:21 | Outpatient (REF) | payer OTHER, SELFPAY | END 2023-08-31 16:22 | disposition home or self-care (01) | LOC: HO.HHCLNP 16:21 | PROVIDERS: Visit Provider Emergency Medicine | DX: F11.20 Opioid dependence, uncomplicated (principal) | CPT/HCPCS: 36415; 80307 ==

== ENCOUNTER → 2023-09-26 10:37 | Outpatient (BNVA) | payer OTHER, SELFPAY | PROVIDERS: PCP Internal Medicine; Visit Provider Surgery | DX: K64.8 Other hemorrhoids (principal) | CPT/HCPCS: 46600; 99202 ==

== ENCOUNTER 2023-09-26 10:38 | Outpatient (AMB) | payer OTHER, SELFPAY ==
--- NOTE | 2023-09-26 10:38 | MHC.OFFVIS ---
Vital Signs 09/26/23 10:41 Height 5 ft 1 in Weight 147 lb 0.773 oz BMI 27.8 Intake Visit Reasons: Hemorrhoids Intake Note: This patient was referred by Dr. Strickland for an assessment for hemorrhoids. Patient c/o; reports rectal bleeding when wipes, reports external hemorrhoids and she notices it goes back in when she stands up which is painful, reports unable to sit, reports mucus. Patient Services Technician Required: Yes Patient Services Technician Language: Mold Polisher Name: Gypsy Information Interpreted: non-clinical & clinical Accompanied by: Other Relationship Allergies No Known Allergies Allergy (Mild, Verified 09/26/23 10:46) NOT APPLICABLE Medication List - Last Reconciled 09/26/23 by Edmundo Luis MD acetaminophen (Tylenol) 325 mg PO QID PRN albuterol sulfate 90 mcg/actuation (Ventolin HFA) 2 puffs inhalation Q4H PRN albuterol sulfate 1 amp inhalation TID PRN amlodipine 10 mg See Protocol PO DAILY aspirin 1 tab PO DAILY buprenorphine-naloxone 8-2 mg (Suboxone) 1 strip sublingual BID calcium acetate(phosphat bind) 1,334 mg PO TIDWM carvedilol 1 tab PO BID clonidine HCl 0.1 mg PO BID diphenhydramine HCl (Benadryl) 25 mg PO DAILY PRN docusate sodium (Colace) 100 mg PO BID PRN fluticasone propionate 110 mcg/actuation (Flovent HFA) 1 puff inhalation BID hydralazine 100 mg PO TID isosorbide dinitrate 30 mg PO TID lactulose 20 grams PO DAILY PRN lidocaine 5% 1 appl topical BEDTIME PRN losartan 50 mg See Protocol PO DAILY melatonin 5 mg PO BEDTIME PRN mirtazapine 15 mg PO BEDTIME ondansetron 4 mg PO BID PRN pantoprazole 40 mg PO DAILY@0630 peg 3350-electrolytes 236-22.74-6.74 -5.86 gram (Golytely) 240 mL PO Q2H PRN sennosides (senna) 1 tab PO BEDTIME PRN sodium zirconium cyclosilicate (Lokelma) 10 grams PO BID sodium zirconium cyclosilicate (Lokelma) 10 grams PO BID HPI HPI Hemorrhoids: Details: [age] year old female referred for hemorrhoid issues. She says that she feels a ball comes out of her anus on and off with bowel movements. She says that sometimes she has to push his back reduce this. She often sees small amounts of blood on wiping She describes pain whenever this ?ball? is out. She has a long history of constipation. She has multiple medical problems including end-stage renal disease on dialysis, reactive airway disease, hypertension, and chronic knee pain. [facility] Medical History (Updated 09/26/23 @ 11:00 by Edmundo Luis MD) Hemorrhoids with complication ESRD on dialysis Delirium Sepsis Tachycardia Leukocytosis Fever End stage chronic kidney disease Congestive heart failure with left ventricular dysfunction ESRD (end stage renal disease) Hypertension Pulmonary congestion COVID-19 virus infection Asthma with COPD with exacerbation COVID ESRD (end stage renal disease) Hypertrophic cardiomyopathy Acute exacerbation of chronic obstructive pulmonary disease (COPD) Heart failure with preserved ejection fraction Constipation End stage renal disease on dialysis Ascites Anasarca Ischemic colitis Acute GI bleeding Anemia Dialysis patient, noncompliant Anemia in chronic kidney disease Opioid withdrawal Essential hypertension Diabetes mellitus Surgical History No pertinent past surgical history Family History Other Hypertension Social History Household Members: None Housing: Apartment Do you presently have visiting nurse or other home services: Yes Unable to assess alcohol history related to: Unknown Alcohol intake: former Comment: pt refuses high fall risk protocol Patient Tobacco Use Status: Never used Tobacco Tobacco use type: Cigarette Cigarettes Per Day: 2 Years Smoked: 50 +/- e-Cigarette/Vaping Use: Former Use Second Hand Smoke Exposure: No Substance Use Type: Crack/Cocaine Advance Directives Date on File: 04/17/22 service: No Current occupational status: disabled Review of Systems Const Denies chills and Denies fever(s) Card Denies chest pain, Denies dyspnea and Reports dyspnea on exertion Resp Denies cough, Denies dyspnea and Reports dyspnea on exertion GI Reports hematochezia and Denies change in bowel habits Denies hematuria Musc Reports abnormal gait, Reports back pain and Reports limited range of motion Neuro Reports abnormal gait, Denies focal weakness and Denies convulsions Psych Denies depression and Denies mood swings Physical Exam Const Other: Ambulating with a walker, frail looking General: comfortable and no acute distress Orientation/consciousness: patient oriented x3 Neck Neck: Yes no lymphadenopathy Resp Auscultation: clear to auscultation bilaterally Cardio Rhythm: regular rhythm GI Other: Rectal exam shows some mucosal prolapse in the left Palpation (GI): Soft to palpation, nontender and no guarding Neuro General: patient oriented x3 Office Procedures Anoscopy She was in stef-knife position. The anoscope was gently inserted. A full examination of the anal canal was done. There was note of prolapse of mucosa on the left side with what appears to be internal hemorrhoids. There were no other lesions. There was no bleeding. There was no fissure. She did have some tenderness. [id number] Assessment & Plan Assessment & Plan (1) Hemorrhoids with complication: Code(s): K64.8 - Other hemorrhoids Category: Medical Plan: She has what appears to be some inflammation and edema of hemorrhoids with some mucosal prolapse. I will prescribe her steroid suppositories as well as stool softeners as she is chronically constipated. I told her that control of her hemorrhoid symptoms will be affected by her chronic constipation She does have other multiple medical issues. I will see her again in the office in a month to see how she is doing and we will discuss the next step in her care. She is comfortable with the plan. Coding Level of Care Code New Pt Level 3 (86443) Diagnoses Hemorrhoids with complication K64.8 CPT Codes Details - CPT: 86651-[id number] ([id number])
[2023-09-26 10:41] VITALS: BMI 27.8
== END 2023-09-26 10:59 | disposition home or self-care (01) ==
PROVIDERS: PCP Internal Medicine; Visit Provider Surgery
DX: K64.8 Other hemorrhoids (principal)
CPT/HCPCS: 46600; 99203

== ENCOUNTER 2023-09-30 15:15 | Emergency (ER) | payer OTHER, SELFPAY ==
--- NOTE | ~2023-09-30 | CT_ITS ---
EXAMINATION: CT ABDOMEN AND PELVIS WITHOUT CONTRAST CLINICAL INFORMATION: Pain COMPARISON: CT abdomen from 06/04/2023 TECHNIQUE: Multidetector volumetric imaging was performed from the superior aspect of the liver through the pubic symphysis. Sagittal and coronal reformatted images were obtained on the technologist's workstation. This CT examination was performed using dose optimization techniques as appropriate, variously including the following: *Automated exposure control *Adjustment of mA and/or kV according to patient size (this includes techniques or standardized protocols for targeted exams where dose is matched to indication/reason for exam; i.e. extremities or head) *Use of iterative reconstruction technique DLP: 465 mGy-cm FINDINGS: LUNG BASES: No pneumothorax. No large pleural effusion. Slight elevation left hemidiaphragm. LIVER, GALLBLADDER, AND BILIARY TREE: The liver is normal in size, shape, and attenuation. No focal hepatic lesion or biliary ductal dilatation is present. The gallbladder is surgically absent. PANCREAS: Unremarkable. SPLEEN: Unremarkable. ADRENAL GLANDS: Stable bilateral nonnodular thickening of the adrenal glands. KIDNEYS AND URETERS: Left renal upper pole cyst measuring up to 4.2 cm, not requiring follow-up. Bilateral renal cortical thinning, stable. No nephrolithiasis or hydronephrosis. BLADDER: Urinary bladder is decompressed limiting evaluation. GASTROINTESTINAL TRACT: Small hiatal hernia. 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 Mild to moderate fecal loading of the colon greatest in its descending segment. The small and large bowel are unremarkable. The appendix is unremarkable. ABDOMINAL WALL: Small fat filled umbilical hernia. LYMPH NODES: No enlarged lymph nodes per size criteria. A few calcified lymph nodes are redemonstrated. VASCULAR: Abdominal aorta is nonaneurysmal. Atherosclerotic calcifications abdominal aorta is noted. 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 PELVIC VISCERA: Anteverted uterus. OSSEOUS STRUCTURES: Stable superior endplate deformity of L3. Grade 1 anterolisthesis of L4 on L5. Multilevel degenerative changes of the thoracolumbar and lumbosacral spine. CT/CT abdomen pelvis wo IV con IMPRESSION: 1. No acute process of the abdomen or pelvis identified. 2. Status post cholecystectomy. 3. Small hiatal hernia. 4. 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 5. Mild to moderate fecal loading of the colon greatest in its descending segment. 6. 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 7. Stable superior endplate deformity of L3. Grade 1 anterolisthesis of L4 on L5.
[2023-09-30 15:34] VITALS: BP 162/98; BP 206/88; PULSE 73; RESP 14; TEMP 37.3; O2SAT 100; O2SAT 98; BMI 29.8
--- NOTE | 2023-09-30 17:10 | ED_ITS ---
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 Patient was seen here on 09/26/[address] Luis in regards to rectal pain. On anoscope she appeared to have an internal hemorrhoid with a slight degree of rectal prolapse He discharge her with steroid suppositories, stool softener and plan is to see her in 1 month Patient reports since that visit 4 days ago she has had worsening pain continues to have some blood with bowel movements She also has a history of chronic constipation No other complaints or concerns at this time Related Data Home Medications ?Medication ?Instructions ?Recorded ?Confirmed buprenorphine 8 mg-naloxone 2 mg 1 strip sublingual BID 10/22/20 09/26/23 sublingual film (Suboxone) fluticasone propionate 110 1 puff inhalation BID 04/15/21 09/26/23 mcg/actuation HFA aerosol inhaler (Flovent HFA) melatonin 5 mg tablet 5 mg PO BEDTIME PRN Sleep 04/15/21 09/26/23 pantoprazole 40 mg tablet,delayed 40 mg PO DAILY@0630 04/15/21 09/26/23 release sennosides 8.6 mg tablet (senna) 1 tab PO BEDTIME PRN constipation 05/11/21 09/26/23 aspirin 81 mg tablet,delayed 1 tab PO DAILY 10/11/21 09/26/23 release albuterol sulfate 90 mcg/actuation 2 puff inhalation Q4H PRN wheezing 01/31/22 09/26/23 aerosol inhaler (Ventolin HFA) ondansetron 4 mg disintegrating 4 mg PO BID PRN nausea and vomiting 03/09/22 09/26/23 tablet carvedilol 6.25 mg tablet 1 tab PO BID 04/24/22 09/26/23 albuterol sulfate 2.5 mg/3 mL 1 amp inhalation TID PRN Shortness 05/08/22 09/26/23 (0.083 %) solution for nebulization Of Breath amlodipine 10 mg tablet 10 mg PO DAILY 07/10/22 09/26/23 hydralazine 100 mg tablet 100 mg PO TID 07/10/22 09/26/23 isosorbide dinitrate 30 mg tablet 30 mg PO TID 07/10/22 09/26/23 calcium acetate(phosphat bind) 667 1,334 mg PO TIDWM 03/13/23 09/26/23 mg capsule clonidine HCl 0.1 mg tablet 0.1 mg PO BID 03/13/23 09/26/23 lactulose 10 gram/15 mL oral 20 g PO DAILY PRN constipation 03/13/23 09/26/23 solution mirtazapine 15 mg tablet 15 mg PO BEDTIME 03/13/23 09/26/23 Previous Rx's ?Medication ?Instructions ?Recorded docusate sodium 100 mg capsule 100 mg PO BID PRN Constipation #30 12/04/21 (Colace) caps diphenhydramine HCl 25 mg capsule 25 mg PO DAILY PRN allergy 04/30/22 (Benadryl) symptoms #30 caps losartan 50 mg tablet 50 mg PO DAILY #30 tabs 08/18/22 acetaminophen 325 mg tablet 325 mg PO QID PRN pain #20 tabs 12/24/22 (Tylenol) lidocaine 5 % topical ointment 1 appl topical BEDTIME PRN pain 01/07/23 #30 grams peg 3350-electrolytes 236 240 ml PO Q2H PRN constipation 08/26/23 gram-22.74 gram-6.74 gram-5.86 #4,000 mL gram solution (Golytely) sodium zirconium cyclosilicate 10 10 g PO BID #3 ea 08/26/23 gram oral powder packet (Lokelma) sodium zirconium cyclosilicate 10 10 g PO BID hyperkalemia #3 ea 08/26/23 gram oral powder packet (Lokelma) docusate sodium 100 mg capsule 100 mg PO BID #60 caps 09/26/23 (Colace) hydrocortisone acetate 25 mg 25 mg NH BID PRN Hemorrhoid pain 09/26/23 rectal suppository (Anusol-HC) #24 ea psyllium seed (sugar) oral powder 1 tbsp PO DAILY #1,254 grams 09/26/23 (Metamucil (sugar) oral powder) lactulose 10 gram oral packet 30 g PO BID #15 ea 09/30/23 Allergies Allergy/AdvReac Type Severity Reaction Status Date / Time No Known Allergies Allergy Mild NOT Verified 09/30/23 15:36 APPLICABLE Review of Systems 2 Constitutional: Constitutional: Denies body ache(s), Denies chills and Denies fever(s) Eyes: Eyes: Denies blurry vision ENT: Denies vertigo Cardiovascular: Cardiovascular: Denies chest pain and Denies dyspnea Respiratory: Respiratory: Denies cough and Denies dyspnea Gastrointestinal: Gastrointestinal: Reports abdominal pain, Reports hematochezia, Denies nausea and Denies vomiting Comments: Reports rectal pain Genitourinary: Genitourinary: Denies dysuria Musculoskeletal: Musculoskeletal: Reports back pain Integumentary/Breasts: Skin/Breast: Denies rash Neurologic: Denies vertigo [facility] Past Medical History Medical History (Updated 09/30/23 @ 18:51 by Tommy Eduardo) Hemorrhoids with complication ESRD on dialysis Delirium Sepsis Tachycardia Leukocytosis Fever End stage chronic kidney disease Congestive heart failure with left ventricular dysfunction ESRD (end stage renal disease) Hypertension Pulmonary congestion COVID-19 virus infection Asthma with COPD with exacerbation COVID ESRD (end stage renal disease) Hypertrophic cardiomyopathy Acute exacerbation of chronic obstructive pulmonary disease (COPD) Heart failure with preserved ejection fraction Constipation End stage renal disease on dialysis Ascites Anasarca Ischemic colitis Acute GI bleeding Anemia Dialysis patient, noncompliant Anemia in chronic kidney disease Opioid withdrawal Essential hypertension Diabetes mellitus Surgical History No pertinent past surgical history Family History Family History Other Hypertension Social History Social History Household Members: None Housing: Apartment Do you presently have visiting nurse or other home services: Yes Unable to assess alcohol history related to: Unknown Alcohol intake: former Comment: pt refuses high fall risk protocol Patient Tobacco Use Status: Never used Tobacco Tobacco use type: Cigarette Cigarettes Per Day: 2 Years Smoked: 50 +/- e-Cigarette/Vaping Use: Former Use Second Hand Smoke Exposure: No Substance Use Type: Crack/Cocaine Advance Directives: Yes Advance Directives on File: Yes Advance Directives Date on File: 04/17/22 Do you have a plan to hurt others: No Plan service: No Current occupational status: disabled Physical Exam ED Vital Signs: Vital Signs - 24 hr 09/30/23 15:34 09/30/23 18:37 Temperature 99.2 F 99.2 F Pulse Rate 73 81 Respiratory Rate 14 16 Blood Pressure 206/88 H 214/95 H Pulse Oximetry 100 98 Oxygen Delivery Method Room Air BMI result Body Mass Index 29.8 Const General: healthy appearing, comfortable, no acute distress, alert and awake Nutritional Appearance: well nourished Orientation/consciousness: patient oriented x3 HENMT Head: Yes normocephalic and Yes atraumatic Eyes Eyelids: Yes eyelids normal Conjunctivae: conjunctivae normal Sclerae: sclerae normal Corneas: corneas normal Pupils: Equal, round and reactive pupils present EOM: EOMs intact bilaterally Neck Neck: Yes full ROM Resp Effort & Inspection: normal respiratory effort, able to speak in complete sentences and not labored GI Inspection: Yes obesity Palpation (GI): Soft to palpation, Tenderness to palpation present (GI) (Diffuse tenderness without guarding) and no guarding Rectal Exam - Female: Rectal prolapse (Minimal rectal prolapse at the 9 o'clock position) and hemorrhoids Skin General skin exam: elasticity normal Neuro General: patient oriented x3 Cranial nerves: Yes Equal, round and reactive pupils present and Yes Bilaterally intact EOM present Cognition (Neuro): normal cognition Extrem Other: Moving all extremities well without any obvious deformities Medical Decision Making Medical Decision Making [facility] Narrative: 68-year-old female past medical history as documented above presents for evaluation of rectal pain and abdominal pain. Her most likely diagnosis is internal hemorrhoids with chronic constipation. She has a very mild degree of rectal prolapse on exam. Plan for CT scan of the abdomen pelvis to evaluate for obstruction versus other infectious cause. Plan for basic labs Differential Diagnosis Differential Diagnoses: The differential diagnosis associated with the presentation includes Constipation Internal hemorrhoid External hemorrhoid Abdominal pain Colitis Diverticulitis Rectal prolapse Admission/Observation Consideration of admission/observation: Escalation of care including admission/observation considered Consider admission due to abdominal pain, however her CT scan was nonsurgical Lab Data [facility] Lab Attestation statement: I reviewed the patient's lab results. No leukocytosis. The patient does have anemia of chronic disease. Potassium is slightly elevated to 5.6 which is likely due to her kidney issues. Last visit she was 6.2. Her dialysis is scheduled for 2 days from today. She has a chronic renal disease with a creatinine of 6.5. Otherwise no significant lab abnormalities outside of her baseline 09/30/23 17:42 09/30/23 17:42 Labs: Lab Results 09/30/23 Range/Units 17:42 WBC 7.2 (4.8-10.8) X10*3/uL RBC 3.11 L (4.20-5.50) X10*6/uL Hgb 10.2 L (12.0-16.0) g/dl Hct 31.2 L (37.0-47.0) % MCV 100.3 H (80.0-98.0) fL MCH 32.8 (27.0-33.0) pg MCHC 32.7 (31.0-35.0) g/dl RDW 14.3 (11.0-16.0) % Plt Count 174 (160-400) X10*3/uL MPV 10.0 (9.4-12.3) fL Immature Gran % (Auto) 0.1 (0.0-0.4) % Neut % (Auto) 61.3 (45-73) % Lymph % (Auto) 23.7 (20-40) % Mayes % (Auto) 8.5 (2-11) % Eos % (Auto) 6.1 H (0-4) % Baso % (Auto) 0.3 (0-2) % Lymph # (Auto) 1.7 (1.2-4.9) X10*3/uL Mayes # (Auto) 0.6 (0.1-1.2) X10*3/uL Eos # (Auto) 0.4 (0.0-0.4) X10*3/uL Baso # (Auto) 0.0 (0.0-0.2) X10*3/uL Abs Immat Gran (auto) 0.01 (0.00-0.03) X10*3/uL Absolute Neuts (auto) 4.4 (2.0-8.3) x10*3/uL Absolute Nucleated RBC 0.000 (0.0-0.012) X10*3/uL Nucleated RBC % (auto) 0.0 (0.0-0.2) /100WBC Sodium 136 (135-145) mmol/L Potassium 5.6 H (3.3-5.1) mmol/L Chloride 90 L (96-108) mmol/L Carbon Dioxide 29 (22-29) mmol/L Anion Gap 23 H (12-20) BUN 56 H (9-16) mg/dL Creatinine 6.50 H* (0.5-1.4) mg/dL Estim Creat Clear Calc 7.6 Estimated GFR 6 Random Glucose 104 (60-115) mg/dL Calcium 9.9 (8.4-10.2) mg/dL Total Bilirubin 0.3 (0.0-1.0) mg/dL AST 20 (5-31) U/L ALT 14 (0-31) U/L Alkaline Phosphatase 216 H (39-117) U/L Total Protein 8.0 (6.5-8.0) g/dL Albumin 4.1 (3.5-5.0) g/dL Lipase 22 (8-78) U/L Independent Interpretation I performed an independent interpretation of an: CT Scan Interpretation: Agree with Radiology interpretation, constipation without obstruction Radiology Impression Discussion of test interpretation with radiology: I have reviewed the radiologist's reading. Radiologist Impression: IMPRESSION: 1. No acute process of the abdomen or pelvis identified. 2. Status post cholecystectomy. 3. Small hiatal hernia. 4. 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 5. Mild to moderate fecal loading of the colon greatest in its descending segment. 6. 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 7. Stable superior endplate deformity of L3. Grade 1 anterolisthesis of L4 on L5. Discharge Plan Discharge Clinical Impression: Internal hemorrhoid, Abdominal pain, Constipation Patient Disposition: Home, Self-Care Instructions: Constipation (ED), Hemorrhoids (ED) Additional Instructions: Your workup today did not show any concerning abnormalities. Your CT scan showed constipation without any other concerning findings Continue all your medications as prescribed Take lactulose 30 g twice daily Continue with dialysis as planned on Sunday Follow-up with Dr. Luis for your hemorrhoids Prescriptions: New lactulose 10 gram packet 30 g PO BID Qty: 15 0RF No Action buprenorphine-naloxone [Suboxone] 8-2 mg film 1 strip sublingual BID docusate sodium [Colace] 100 mg capsule 100 mg PO BID PRN (Reason: Constipation) Qty: 30 0RF pantoprazole 40 mg Tablet,Delayed Release (Dr/Ec) 40 mg PO DAILY@0630 melatonin 5 mg Tablet 5 mg PO BEDTIME PRN (Reason: Sleep) fluticasone propionate [Flovent HFA] 110 mcg/actuation Hfa Aerosol Inhaler 1 puff INHALATION BID sennosides [senna] 8.6 mg tablet 1 tab PO BEDTIME PRN (Reason: constipation) aspirin 81 mg tablet,delayed release (DR/EC) 1 tab PO DAILY albuterol sulfate [Ventolin HFA] 90 mcg/actuation HFA aerosol inhaler 2 puff INHALATION Q4H PRN (Reason: wheezing) ondansetron 4 mg tablet,disintegrating 4 mg PO BID PRN (Reason: nausea and vomiting) carvedilol 6.25 mg tablet 1 tab PO BID diphenhydramine HCl [Benadryl] 25 mg capsule 25 mg PO DAILY PRN (Reason: allergy symptoms) Qty: 30 0RF albuterol sulfate 2.5 mg /3 mL (0.083 %) solution for nebulization 1 amp inhalation TID PRN (Reason: Shortness Of Breath) isosorbide dinitrate 30 mg Tablet 30 mg PO TID Rx Instructions: allow nitrate-free interval of 12-14 hrs per 24-hr period amlodipine 10 mg tablet 10 mg PO DAILY Protocol: Hold for SBP< HOLD for SBP < : 90 Rx Instructions: replaces prior dose of 5 mg daily hydralazine 100 mg Tablet 100 mg PO TID losartan 50 mg Tablet 50 mg PO DAILY Qty: 30 0RF Protocol: Hold for SBP< HOLD for SBP < : 90 acetaminophen [Tylenol] 325 mg tablet 325 mg PO QID PRN (Reason: pain) Qty: 20 0RF lidocaine 5 % ointment 1 appl topical BEDTIME PRN (Reason: pain) Qty: 30 0RF clonidine HCl 0.1 mg tablet 0.1 mg PO BID mirtazapine 15 mg tablet 15 mg PO BEDTIME calcium acetate(phosphat bind) 667 mg capsule 1,334 mg PO TIDWM lactulose 10 gram/15 mL solution 20 g PO DAILY PRN (Reason: constipation) Lokelma 10 gram powder in packet 10 g PO BID Qty: 3 0RF Rx Instructions: Take one dose tonight, 08/26/23, then two more doses tomorrow. peg 3350-electrolytes [Golytely] 236-22.74-6.74 -5.86 gram recon soln 240 ml PO Q2H PRN (Reason: constipation) Qty: 4000 0RF Rx Instructions: until you have a large bowel movement Lokelma 10 gram powder in packet 10 g PO BID Qty: 3 0RF hydrocortisone acetate [Anusol-HC] 25 mg suppository 25 mg NH BID PRN (Reason: Hemorrhoid pain) Qty: 24 2RF docusate sodium [Colace] 100 mg capsule 100 mg PO BID Qty: 60 0RF Metamucil (sugar) Powder 1 tbsp PO DAILY Qty: 1254 0RF Referrals: Edmundo Luis MD [Physician] - (Hemorrhoids) Print Language: Filipino
[2023-09-30 17:47] LABS: MANUAL DIFF FLAG NO
[2023-09-30 17:54] LABS: Basophils Percent Auto 0.3 % (0-2); Eosinophils Absolute Auto 0.4 X10*3/uL (0.0-0.4); Eosinophils Percent Auto 6.1 % (0-4); Hematocrit 31.2 % (37.0-47.0); Hemoglobin 10.2 g/dl (12.0-16.0); Imm Gran Abs Auto 0.01 X10*3/uL (0.00-0.03); Imm Gran Pct Auto 0.1 % (0.0-0.4); Lymphocytes Absolute Auto 1.7 X10*3/uL (1.2-4.9); Lymphocytes Percent Auto 23.7 % (20-40); Mean Corpuscular HGB Conc 32.7 g/dl (31.0-35.0); Mean Corpuscular Hemoglobin 32.8 pg (27.0-33.0); Mean Corpuscular Volume 100.3 fL (80.0-98.0); Monocytes Absolute Auto 0.6 X10*3/uL (0.1-1.2); Monocytes Percent Auto 8.5 % (2-11); Neutrophils Absolute Auto 4.4 x10*3/uL (2.0-8.3); Neutrophils Percent Auto 61.3 % (45-73); Platelet Count 174 X10*3/uL (160-400); Red Blood Count 3.11 X10*6/uL (4.20-5.50); Red Cell Distribution Width 14.3 % (11.0-16.0); White Blood Count 7.2 X10*3/uL (4.8-10.8)
[2023-09-30 18:08] LABS: Alanine Aminotransferase 14 U/L (0-31); Albumin Level 4.1 g/dL (3.5-5.0); Alkaline Phosphatase 216 U/L (39-117); Anion Gap 23 (12-20); Aspartate Amino Transferase 20 U/L (5-31); Bilirubin Total 0.3 mg/dL (0.0-1.0); Blood Urea Nitrogen 56 mg/dL (9-16); Calcium 9.9 mg/dL (8.4-10.2); Carbon Dioxide 29 mmol/L (22-29); Chloride 90 mmol/L (96-108); Creatinine Clr Calc Pharmacy 7.6; Estimated Glomerular Filt Rate 6; Glucose Random 104 mg/dL (60-115); Lipase 22 U/L (8-78); Potassium 5.6 mmol/L (3.3-5.1); Sodium 136 mmol/L (135-145)
[2023-09-30 18:37] VITALS: BP 214/95; PULSE 81; RESP 16; TEMP 37.3; O2SAT 98
[2023-09-30 19:02] VITALS: BP 200/94; PULSE 80; RESP 16; TEMP 37.2; O2SAT 98
== END 2023-09-30 19:05 | disposition home or self-care (01) ==
PROVIDERS: Physician Assistant; Emergency Provider Emergency Medicine; PCP Internal Medicine
DX: K64.8 Other hemorrhoids (principal); K59.00 Constipation, unspecified; Z79.899 Other long term (current) drug therapy
CPT/HCPCS: 36415; 74176; 80053; 83690; 85025; 99283; 99284

== ENCOUNTER 2023-10-03 08:58 | Outpatient (AMB) | payer OTHER, SELFPAY ==
[2023-10-03 09:16] VITALS: BMI 29.3
--- NOTE | 2023-10-03 09:16 | A.OFFVIS_ITS ---
Vital Signs 10/03/23 09:16 Height 5 ft 1 in Weight 155 lb BMI 29.3 Intake Visit Reasons: severe pain hemorrhoids Intake Note: This patient for [facility] [place] follow-up for abdominal pain, hemorrhoidal pain. Patient c/o; reports lower abodminal pain, reports incomplete urination, reports bloating, reports rectal pain, reports feels mass on her rectum and she states it is not letting her have a complete bowel movement. 09/30/2023; abd/pelvis CT Splunk Dashboard Developer Required: Yes Splunk Dashboard Developer Language: Indonesian Information Interpreted: non-clinical & clinical Accompanied by: Other Relationship Allergies No Known Allergies Allergy (Mild, Verified 09/30/23 15:36) NOT APPLICABLE Medication List - Last Reconciled 10/03/23 by Edmundo Luis MD acetaminophen (Tylenol) 325 mg PO QID PRN albuterol sulfate 90 mcg/actuation (Ventolin HFA) 2 puffs inhalation Q4H PRN albuterol sulfate 1 amp inhalation TID PRN amlodipine 10 mg See Protocol PO DAILY aspirin 1 tab PO DAILY buprenorphine-naloxone 8-2 mg (Suboxone) 1 strip sublingual BID calcium acetate(phosphat bind) 1,334 mg PO TIDWM carvedilol 1 tab PO BID clonidine HCl 0.1 mg PO BID diphenhydramine HCl (Benadryl) 25 mg PO DAILY PRN docusate sodium (Colace) 100 mg PO BID PRN docusate sodium (Colace) 100 mg PO BID fluticasone propionate 110 mcg/actuation (Flovent HFA) 1 puff inhalation BID hydralazine 100 mg PO TID hydrocortisone acetate (Anusol-HC) 25 mg [place] BID PRN isosorbide dinitrate 30 mg PO TID lactulose 20 grams PO DAILY PRN lactulose 30 grams PO BID lidocaine 5% 1 appl topical BEDTIME PRN losartan 50 mg See Protocol PO DAILY melatonin 5 mg PO BEDTIME PRN mirtazapine 15 mg PO BEDTIME ondansetron 4 mg PO BID PRN pantoprazole 40 mg PO DAILY@0630 peg 3350-electrolytes 236-22.74-6.74 -5.86 gram (Golytely) 240 mL PO Q2H PRN psyllium seed (sugar) (Metamucil (sugar) oral powder) 1 tbsp PO DAILY sennosides (senna) 1 tab PO BEDTIME PRN sodium zirconium cyclosilicate (Lokelma) 10 grams PO BID sodium zirconium cyclosilicate (Lokelma) 10 grams PO BID HPI HPI severe pain hemorrhoids: Details: 68-year-old female here for follow-up for her hemorrhoids. She continues to have pain in her anus and she says she went to the ER a few days ago for this She describes seeing some small amounts of blood on wiping once in a while. She says that her hemorrhoids always come out and she has to push this back because of pain She has history of chronic constipation as well. [facility] Medical History Hemorrhoids with complication ESRD on dialysis Delirium Sepsis Tachycardia Leukocytosis Fever End stage chronic kidney disease Congestive heart failure with left ventricular dysfunction ESRD (end stage renal disease) Hypertension Pulmonary congestion COVID-19 virus infection Asthma with COPD with exacerbation COVID ESRD (end stage renal disease) Hypertrophic cardiomyopathy Acute exacerbation of chronic obstructive pulmonary disease (COPD) Heart failure with preserved ejection fraction Constipation End stage renal disease on dialysis Ascites Anasarca Ischemic colitis Acute GI bleeding Anemia Dialysis patient, noncompliant Anemia in chronic kidney disease Opioid withdrawal Essential hypertension Diabetes mellitus Surgical History No pertinent past surgical history Family History Other Hypertension Social History Household Members: None Housing: Apartment Do you presently have visiting nurse or other home services: Yes Unable to assess alcohol history related to: Unknown Alcohol intake: former Comment: pt refuses high fall risk protocol Patient Tobacco Use Status: Never used Tobacco Tobacco use type: Cigarette Cigarettes Per Day: 2 Years Smoked: 50 +/- e-Cigarette/Vaping Use: Former Use Second Hand Smoke Exposure: No Substance Use Type: Crack/Cocaine Advance Directives Date on File: 04/17/22 service: No Current occupational status: disabled Review of Systems Const Denies chills and Denies fever(s) Card Denies chest pain Resp Denies cough GI Reports constipation Physical Exam Vital Signs: BMI result Body Mass Index 29.3 Const General: comfortable and no acute distress Resp Effort & Inspection: normal respiratory effort Cardio Rate: regular rate GI Other: rectal exam shows some prolapse of internal hemorrhoids, with a little bit of edema Palpation (GI): Soft to palpation, not firm and nontender Office Procedures Anoscopy she was in prone stef-knife position. The anoscope was gently inserted. A full examination of the anal canal was done. She had prominent internal hemorrhoids seem to prolapse easily with a little bit of external component. this appeared to be edematous at this time. There was no bleeding. There was no fissure. There was no ulceration. There was no induration [id number] Assessment & Plan Assessment & Plan (1) Hemorrhoids with complication: Code(s): K64.8 - Other hemorrhoids Category: Medical Plan: She says she continues to have pain with her hemorrhoids when the prolapse. She says she was unable to use suppositories as she did not get this from her pharmacy I did explain to her the option of hemorrhoidectomy. I explained the technique of this procedure. I reviewed the risks including but not limited to bleeding, infections, postop pain, as well as the benefits and alternatives At this time, she says she will try the suppositories and will see Kaykay on her next follow-up visit to decide on hemorrhoidectomy. She is to continue with Metamucil as well for constipation. She admits that she sits on the toilet for a long period of time prior to having an actual bowel movement. I told her to avoid this and to just go to the toilet whenever she is ready to have a bowel movement. Coding Level of Care Code Est Pt Level 3 (72574) Diagnoses Hemorrhoids with complication K64.8 CPT Codes Details - CPT: 61866-[id number] ([id number])
== END 2023-10-03 10:19 | disposition home or self-care (01) ==
PROVIDERS: PCP Internal Medicine; Visit Provider Surgery
DX: K64.8 Other hemorrhoids (principal)
CPT/HCPCS: 46600; 99213

== ENCOUNTER → 2023-10-03 08:58 | Outpatient (BNVA) | payer OTHER, SELFPAY | PROVIDERS: PCP Internal Medicine; Visit Provider Surgery | DX: K64.8 Other hemorrhoids (principal) | CPT/HCPCS: 46600; 99212 ==

== ENCOUNTER 2023-10-16 00:47 | Inpatient (IN) | payer OTHER, SELFPAY ==
[2023-10-16] VITALS (13 sets, daily range): BP systolic 151–192; BP diastolic 63–96; PULSE 61–74; RESP 12–19; TEMP 36.3–37.2; O2SAT 94–100; BMI 26.6
--- NOTE | ~2023-10-16 | XR_ITS ---
EXAMINATION: XR ABDOMEN KUB CLINICAL INDICATION: Left abdominal pain COMPARISON: 09/30/2023 TECHNIQUE: AP view of the abdomen. FINDINGS: Bowel gas pattern appears nonobstructive. Limited assessment for free air with supine positioning. Cholecystectomy clips noted. No acute osseous findings are seen. XR/XR KUB IMPRESSION: Nonobstructive bowel gas pattern.
--- NOTE | 2023-10-16 00:59 | MHC.EDTECH ---
Patient came in by ambulance,changed into hospital attire,vitals taken and placed on the quality assurance monitor,call cruz in reach
--- NOTE | 2023-10-16 01:15 | PC.NURSE ---
22 G IV line established in R AC, labs drawn and sent to lab.
[2023-10-16 01:18] LABS: Basophils Percent Auto 0.3 % (0-2); Eosinophils Absolute Auto 0.5 X10*3/uL (0.0-0.4); Eosinophils Percent Auto 6.2 % (0-4); Hematocrit 31.2 % (37.0-47.0); Hemoglobin 10.6 g/dl (12.0-16.0); Imm Gran Abs Auto 0.03 X10*3/uL (0.00-0.03); Imm Gran Pct Auto 0.4 % (0.0-0.4); Lymphocytes Absolute Auto 1.5 X10*3/uL (1.2-4.9); Lymphocytes Percent Auto 20.3 % (20-40); MANUAL DIFF FLAG NO; Mean Corpuscular Hemoglobin 33.1 pg (27.0-33.0); Mean Corpuscular Volume 97.5 fL (80.0-98.0); Mean Platelet Volume 10.3 fL (9.4-12.3); Monocytes Absolute Auto 0.6 X10*3/uL (0.1-1.2); Neutrophils Absolute Auto 4.8 x10*3/uL (2.0-8.3); Neutrophils Percent Auto 64.8 % (45-73); Platelet Count 174 X10*3/uL (160-400); Red Cell Distribution Width 14.1 % (11.0-16.0); White Blood Count 7.4 X10*3/uL (4.8-10.8)
--- NOTE | 2023-10-16 01:26 | PC.NURSE ---
Patient vomited at ED x1, clear vomitus. Edgard, ED provider notified.
[2023-10-16 01:38] LABS: Alanine Aminotransferase 14 U/L (0-31); Albumin Level 3.9 g/dL (3.5-5.0); Alkaline Phosphatase 193 U/L (39-117); Anion Gap 23 (12-20); Aspartate Amino Transferase 17 U/L (5-31); Bilirubin Total 0.3 mg/dL (0.0-1.0); Blood Urea Nitrogen 78 mg/dL (9-16); Calcium 9.2 mg/dL (8.4-10.2); Carbon Dioxide 29 mmol/L (22-29); Chloride 89 mmol/L (96-108); Creatinine Clr Calc Pharmacy 5.4; Estimated Glomerular Filt Rate 4; Glucose Random 150 mg/dL (60-115); Lipase 19 U/L (8-78); Potassium 7.3 mmol/L (3.3-5.1); Sodium 134 mmol/L (135-145); Total Protein 7.4 g/dL (6.5-8.0)
--- NOTE | 2023-10-16 01:39 | ECG_ITS ---
Test Reason : ARRHYTHMIA Blood Pressure : / mmHG Vent. Rate : 063 BPM Atrial Rate : 063 BPM P-R Int : 192 ms QRS Dur : 090 ms QT Int : 444 ms P-R-T Axes : 060 -25 028 degrees QTc Int : 454 ms Normal sinus rhythm Possible Left atrial enlargement Left ventricular hypertrophy ( R in aVL , Jona product ) Abnormal ECG When compared with ECG of 26-AUG-2023 12:36, No significant change was found Referred By: Tommy Eduardo Electronically Signed By:SALVADOR SARABIA
--- NOTE | 2023-10-16 01:42 | MHC.EDTECH ---
Delay in EKG due to patient being in X-ray.
--- NOTE | 2023-10-16 01:55 | ED.GENADULT ---
HPI - General Adult General Chief complaint: Back Pain/Injury Stated complaint: back pain Time Seen by Provider: 10/16/23 00:52 Source: patient, RN notes reviewed, old records reviewed and facility maintenance helper Mode of arrival: EMS Limitations: language barrier History of Present Illness ED Provider: Alesha HPI narrative: 68-year-old female with past medical history significant for end-stage renal disease on dialysis Sunday, , Sunday, hypertension, constipation presents for evaluation of left lower back pain. Patient states that she always has abdominal pain and back pain but her pain today was ?too much. ? She reports that she had a bowel movement today and has been having worsening constipation for which she is following with general surgery, Dr. Luis She is following him due to internal hemorrhoids She was told 1 week ago that she has not a candidate for hemorrhoidectomy due to her medical issues and the risk of sedation Denies any black or bloody stool Patient states that she takes 4 medications for constipation and ?I can not poop if I do not take them. ? She reports taking 2 pills, 1 type of powder, and 1 liquid, but does not know the names of the medications. She denies any fevers, chills This patient does not make any urine and has not for quite some time per her report Related Data Home Medications ?Medication ?Instructions ?Recorded ?Confirmed buprenorphine 8 mg-naloxone 2 mg 1 strip sublingual BID 10/22/20 10/03/23 sublingual film (Suboxone) fluticasone propionate 110 1 puff inhalation BID 04/15/21 10/03/23 mcg/actuation HFA aerosol inhaler (Flovent HFA) melatonin 5 mg tablet 5 mg PO BEDTIME PRN Sleep 04/15/21 10/03/23 pantoprazole 40 mg tablet,delayed 40 mg PO DAILY@0630 04/15/21 10/03/23 release sennosides 8.6 mg tablet (senna) 1 tab PO BEDTIME PRN constipation 05/11/21 10/03/23 aspirin 81 mg tablet,delayed 1 tab PO DAILY 10/11/21 10/03/23 release albuterol sulfate 90 mcg/actuation 2 puff inhalation Q4H PRN wheezing 01/31/22 10/03/23 aerosol inhaler (Ventolin HFA) ondansetron 4 mg disintegrating 4 mg PO BID PRN nausea and vomiting 03/09/22 10/03/23 tablet carvedilol 6.25 mg tablet 1 tab PO BID 04/24/22 10/03/23 albuterol sulfate 2.5 mg/3 mL 1 amp inhalation TID PRN Shortness 05/08/22 10/03/23 (0.083 %) solution for nebulization Of Breath amlodipine 10 mg tablet 10 mg PO DAILY 07/10/22 10/03/23 hydralazine 100 mg tablet 100 mg PO TID 07/10/22 10/03/23 isosorbide dinitrate 30 mg tablet 30 mg PO TID 07/10/22 10/03/23 calcium acetate(phosphat bind) 667 1,334 mg PO TIDWM 03/13/23 10/03/23 mg capsule clonidine HCl 0.1 mg tablet 0.1 mg PO BID 03/13/23 10/03/23 lactulose 10 gram/15 mL oral 20 g PO DAILY PRN constipation 03/13/23 10/03/23 solution mirtazapine 15 mg tablet 15 mg PO BEDTIME 03/13/23 10/03/23 Previous Rx's ?Medication ?Instructions ?Recorded docusate sodium 100 mg capsule 100 mg PO BID PRN Constipation #30 12/04/21 (Colace) caps diphenhydramine HCl 25 mg capsule 25 mg PO DAILY PRN allergy 04/30/22 (Benadryl) symptoms #30 caps losartan 50 mg tablet 50 mg PO DAILY #30 tabs 08/18/22 acetaminophen 325 mg tablet 325 mg PO QID PRN pain #20 tabs 12/24/22 (Tylenol) lidocaine 5 % topical ointment 1 appl topical BEDTIME PRN pain 01/07/23 #30 grams peg 3350-electrolytes 236 240 ml PO Q2H PRN constipation 08/26/23 gram-22.74 gram-6.74 gram-5.86 #4,000 mL gram solution (Golytely) sodium zirconium cyclosilicate 10 10 g PO BID #3 ea 08/26/23 gram oral powder packet (Lokelma) sodium zirconium cyclosilicate 10 10 g PO BID hyperkalemia #3 ea 08/26/23 gram oral powder packet (Lokelma) docusate sodium 100 mg capsule 100 mg PO BID #60 caps 09/26/23 (Colace) hydrocortisone acetate 25 mg 25 mg [place] BID PRN Hemorrhoid pain 09/26/23 rectal suppository (Anusol-HC) #24 ea psyllium seed (sugar) oral powder 1 tbsp PO DAILY #1,254 grams 09/26/23 (Metamucil (sugar) oral powder) lactulose 10 gram oral packet 30 g PO BID #15 ea 09/30/23 hydrocortisone acetate 25 mg 25 mg [place] BID #24 ea 10/03/23 rectal suppository (Anucort-HC) Allergies Allergy/AdvReac Type Severity Reaction Status Date / Time No Known Allergies Allergy Mild NOT Verified 10/16/23 00:57 APPLICABLE Review of Systems Constitutional: Constitutional: Denies body ache(s), Denies chills, Denies fever(s) and Denies headache(s) Eyes: Eyes: Denies blurry vision ENT: Denies headache(s) and Denies sore throat Cardiovascular: Cardiovascular: Denies chest pain and Denies dyspnea Respiratory: Respiratory: Denies cough and Denies dyspnea Gastrointestinal: Gastrointestinal: Reports abdominal pain, Denies hematochezia, Reports constipation, Reports nausea and Denies vomiting Genitourinary: Genitourinary: Denies dysuria Musculoskeletal: Musculoskeletal: Reports back pain Integumentary/Breasts: Skin/Breast: Denies rash Neurologic: Denies headache(s) [facility] Past Medical History Medical History Hemorrhoids with complication ESRD on dialysis Delirium Sepsis Tachycardia Leukocytosis Fever End stage chronic kidney disease Congestive heart failure with left ventricular dysfunction ESRD (end stage renal disease) Hypertension Pulmonary congestion COVID-19 virus infection Asthma with COPD with exacerbation COVID ESRD (end stage renal disease) Hypertrophic cardiomyopathy Acute exacerbation of chronic obstructive pulmonary disease (COPD) Heart failure with preserved ejection fraction Constipation End stage renal disease on dialysis Ascites Anasarca Ischemic colitis Acute GI bleeding Anemia Dialysis patient, noncompliant Anemia in chronic kidney disease Opioid withdrawal Essential hypertension Diabetes mellitus Surgical History No pertinent past surgical history Family History Family History Other Hypertension Social History Social History Household Members: None Housing: Apartment Do you presently have visiting nurse or other home services: Yes Unable to assess alcohol history related to: Unknown Alcohol intake: never Comment: pt refuses high fall risk protocol Patient Tobacco Use Status: Never used Tobacco Tobacco use type: Cigarette Cigarettes Per Day: 2 Years Smoked: 50 +/- Smoked in Last 30 Days: Yes e-Cigarette/Vaping Use: Former Use Second Hand Smoke Exposure: No Use of substances other than those prescribed or required for medical reasons: Yes Substance Use Type: Marijuana Substance Use Frequency: Occasionally Advance Directives: Yes Advance Directives on File: Yes Advance Directives Date on File: 04/17/22 Do you have a plan to hurt others: No Plan service: No Current occupational status: disabled Physical Exam ED Vital Signs: Vital Signs - 24 hr 10/16/23 00:55 10/16/23 01:54 10/16/23 02:26 Temperature 98.9 F 98.8 F Pulse Rate 68 67 61 Respiratory Rate 16 19 18 Blood Pressure 189/71 H 174/96 H 151/67 H Pulse Oximetry 98 98 98 Oxygen Delivery Method Room Air Room Air Room Air 10/16/23 02:36 10/16/23 04:22 10/16/23 04:39 Temperature 98.6 F Pulse Rate 63 69 Respiratory Rate 18 16 18 Blood Pressure 175/69 H Pulse Oximetry 96 Oxygen Delivery Method Room Air BMI result Body Mass Index 26.6 Const General: healthy appearing, comfortable, no acute distress, alert and awake Nutritional Appearance: well nourished Orientation/consciousness: patient oriented x3 HENMT Head: Yes normocephalic and Yes atraumatic Eyes Eyelids: Yes eyelids normal Conjunctivae: conjunctivae normal Sclerae: sclerae normal Corneas: corneas normal Pupils: Equal, round and reactive pupils present EOM: EOMs intact bilaterally Neck Neck: Yes full ROM Resp Effort & Inspection: normal respiratory effort, able to speak in complete sentences and not labored Cardio Rate: regular rate Rhythm: regular rhythm GI Inspection: No distended Palpation (GI): Soft to palpation, not firm, Tenderness to palpation present (GI) in the LLQ and in the LUQ; not in the RLQ and not in the RUQ, no guarding and not rigid Back/Spine/Pelvis Other: Tenderness in the left lumbar paraspinous region. No vertebral tenderness. Skin General skin exam: elasticity normal Neuro General: patient oriented x3 Cranial nerves: Yes Equal, round and reactive pupils present and Yes Bilaterally intact EOM present Cognition (Neuro): normal cognition Extrem Other: Moving all extremities well without any obvious deformities Course Reevaluation(s) Reevaluation #1: Received call from the lab the patient's potassium was critical at 7.3. I immediately ordered insulin with dextrose, sodium bicarb, Lokelma, and calcium gluconate. I discussed the case with Nephrology, Dr. Chen Time: 02:06 Reevaluation #2: The patient was signed out to me by the physician technology assistant. The hospitalist was concerned that a potassium of 7.3 should not go to the medical floor. The hospitalist requested that we treat the patient and repeat the potassium to ensure the potassium was coming down. The patient received IV calcium, insulin, and bicarbonate. Also Lokalma and albuterol. A repeat potassium was done at 04:00 that showed a potassium of 6.0. I reconsulted the hospitalist and the hospitalist was content to admit the patient at that point. Medications Administered Generic Name Dose Route Start Last Admin Trade Name Freq PRN Reason Stop Dose Admin Dextrose 250 mls @ 750 mls/hr 10/16/23 01:39 10/16/23 02:59 D10 IV Infused Q15M PRN Infusion per Hypoglycemia Standing Ord. Lactulose 30 gm 10/16/23 05:25 10/16/23 06:04 Lactulose 20 Gm/30 Ml Solution PO 30 gm TID PHAN Administration Discontinued Medications Generic Name Dose Route Start Last Admin Trade Name Freq PRN Reason Stop Dose Admin Albuterol Sulfate 7.5 mg/ 10 mg 10/16/23 02:24 10/16/23 02:34 Albuterol Sulfate 2.5 mg INHALE 10/16/23 02:25 10 mg ONCE ONE Administration Calcium Gluconate 2 gm in 100 mls @ 400 mls/hr 10/16/23 01:39 10/16/23 02:11 Calcium Gluconate IV 10/16/23 01:53 Infused ONCE ONE Infusion Insulin Human Regular 5 unit 10/16/23 01:39 10/16/23 01:56 Insulin Regular, Human 100 Unit/Ml 3 Ml Vial IVPUSH 10/16/23 01:40 5 unit ONCE ONE Administration Morphine Sulfate 4 mg 10/16/23 04:31 10/16/23 04:39 Morphine Sulfate 4 Mg/Ml Cartridge IVPUSH 10/16/23 04:32 4 mg ONCE ONE Administration Protocol Ondansetron HCl 4 mg 10/16/23 04:31 10/16/23 04:39 Ondansetron Hcl 4 Mg/2 Ml Vial IVPUSH 10/16/23 04:32 4 mg ONCE ONE Administration Sodium Bicarbonate 50 meq 10/16/23 01:39 10/16/23 01:56 Sodium Bicarbonate 8.4% 50 Meq/50 Ml Syringe IVPUSH 10/16/23 01:40 50 meq ONCE ONE Administration Sodium Zirconium Cyclosilicate 10 gm 10/16/23 01:39 10/16/23 01:56 Sodium Zirconium Cyclosilicate 10 Gm Powd.Pack PO 10/16/23 01:40 10 gm ONCE ONE Administration Medical Decision Making Medical Decision Making MDM Narrative: 68-year-old female presents for evaluation of back pain and abdominal pain. She has chronic back and abdominal pain as well as chronic constipation. She was seen here 2 weeks ago on 09/30/2023. She had a CT scan at that time which showed moderate constipation but no other acute process. She is currently following with general surgery due to contributing to her constipation. Plan for labs, KUB. Analgesia is difficult for this patient, as she can not take NSAIDs due to her renal disease, she has chronic constipation so opiates is not a good choice either. Differential Diagnosis Differential Diagnoses: The differential diagnosis associated with the presentation includes Constipation bowel obstruction less likely as the patient had a bowel movement today Abdominal pain Muscle strain Chronic back pain Chronic abdominal pain Admission/Observation Consideration of admission/observation: Escalation of care including admission/observation considered Patient will require admission due to acute hyperkalemia Consult Healthcare Provider Management of the patient was discussed with: Wine Specialist Nephrology, Dr. Chen Lab Data Patient has no leukocytosis. She does have anemia of chronic disease with a hemoglobin of 10.6 with hematocrit 31.2. Normal platelet count. Patient's sodium is low at 134 with a potassium that is elevated to 7.3. Her chloride is low at 89 with a CO2 of 29. BUN of 78 and 9.5 a and a setting of chronic kidney disease. Patient's glucose is 150 10/16/23 01:14 05/28/24 04:25 Labs: Lab Results 10/16/23 10/16/23 10/16/23 Range/Units 01:14 02:28 03:31 WBC 7.4 (4.8-10.8) X10*3/uL RBC 3.20 L (4.20-5.50) X10*6/uL Hgb 10.6 L (12.0-16.0) g/dl Hct 31.2 L (37.0-47.0) % MCV 97.5 (80.0-98.0) fL MCH 33.1 H (27.0-33.0) pg MCHC 34.0 (31.0-35.0) g/dl RDW 14.1 (11.0-16.0) % Plt Count 174 (160-400) X10*3/uL MPV 10.3 (9.4-12.3) fL Immature Gran % (Auto) 0.4 (0.0-0.4) % Neut % (Auto) 64.8 (45-73) % Lymph % (Auto) 20.3 (20-40) % Hawkins % (Auto) 8.0 (2-11) % Eos % (Auto) 6.2 H (0-4) % Baso % (Auto) 0.3 (0-2) % Lymph # (Auto) 1.5 (1.2-4.9) X10*3/uL Hawkins # (Auto) 0.6 (0.1-1.2) X10*3/uL Eos # (Auto) 0.5 H (0.0-0.4) X10*3/uL Baso # (Auto) 0.0 (0.0-0.2) X10*3/uL Abs Immat Gran (auto) 0.03 (0.00-0.03) X10*3/uL Absolute Neuts (auto) 4.8 (2.0-8.3) x10*3/uL Absolute Nucleated RBC 0.000 (0.0-0.012) X10*3/uL Nucleated RBC % (auto) 0.0 (0.0-0.2) /100WBC Sodium 134 L (135-145) mmol/L Potassium 7.3 H* D (3.3-5.1) mmol/L Chloride 89 L (96-108) mmol/L Carbon Dioxide 29 (22-29) mmol/L Anion Gap 23 H (12-20) BUN 78 H (9-16) mg/dL Creatinine 9.58 H* (0.5-1.4) mg/dL Estim Creat Clear Calc 5.4 Estimated GFR 4 POC Glucose 105 148 H (60-115) mg/dL Random Glucose 150 H (60-115) mg/dL Calcium 9.2 D (8.4-10.2) mg/dL Phosphorus 6.6 H (2.7-4.5) mg/dL Magnesium 2.2 (1.6-2.6) mg/dL Total Bilirubin 0.3 (0.0-1.0) mg/dL AST 17 (5-31) U/L ALT 14 (0-31) U/L Alkaline Phosphatase 193 H (39-117) U/L Total Protein 7.4 (6.5-8.0) g/dL Albumin 3.9 (3.5-5.0) g/dL Lipase 19 (8-78) U/L // Range/Units 04:25 WBC (4.8-10.8) X10*3/uL RBC (4.20-5.50) X10*6/uL Hgb (12.0-16.0) g/dl Hct (37.0-47.0) % MCV (80.0-98.0) fL MCH (27.0-33.0) pg MCHC (31.0-35.0) g/dl RDW (11.0-16.0) % Plt Count (160-400) X10*3/uL MPV (9.4-12.3) fL Immature Gran % (Auto) (0.0-0.4) % Neut % (Auto) (45-73) % Lymph % (Auto) (20-40) % Hawkins % (Auto) (2-11) % Eos % (Auto) (0-4) % Baso % (Auto) (0-2) % Lymph # (Auto) (1.2-4.9) X10*3/uL Hawkins # (Auto) (0.1-1.2) X10*3/uL Eos # (Auto) (0.0-0.4) X10*3/uL Baso # (Auto) (0.0-0.2) X10*3/uL Abs Immat Gran (auto) (0.00-0.03) X10*3/uL Absolute Neuts (auto) (2.0-8.3) x10*3/uL Absolute Nucleated RBC (0.0-0.012) X10*3/uL Nucleated RBC % (auto) (0.0-0.2) /100WBC Sodium 134 L (135-145) mmol/L Potassium 6.0 H* (3.3-5.1) mmol/L Chloride 90 L (96-108) mmol/L Carbon Dioxide 27 (22-29) mmol/L Anion Gap 23 H (12-20) BUN 79 H (9-16) mg/dL Creatinine 9.11 H* (0.5-1.4) mg/dL Estim Creat Clear Calc 5.7 Estimated GFR 4 POC Glucose (60-115) mg/dL Random Glucose 223 H (60-115) mg/dL Calcium 9.1 (8.4-10.2) mg/dL Phosphorus (2.7-4.5) mg/dL Magnesium (1.6-2.6) mg/dL Total Bilirubin (0.0-1.0) mg/dL AST (5-31) U/L ALT (0-31) U/L Alkaline Phosphatase (39-117) U/L Total Protein (6.5-8.0) g/dL Albumin (3.5-5.0) g/dL Lipase (8-78) U/L Independent Interpretation I performed an independent interpretation of an: EKG Interpretation: Sinus rhythm with a rate of 63 beats minute. No ectopy or ischemic changes. Critical Care Time Critical Care Time Critical Care Time: Yes Total Critical Care Time: 35 Attestation: The patient was critically ill with a high probability of imminent or life-threatening deterioration. ?I spent greater than 30 minutes of discontinuous time evaluating the patient, delivering critical care at the bedside, discussing evaluating data with consultants. ?Critical care time does not include time spent performing separately billable procedures or teaching. ?Time spent performing critical care with 35 minutes. Discharge Plan Discharge Clinical Impression: Acute hyperkalemia, Acute left flank pain Patient Disposition: Admitted As Inpatient
--- NOTE | 2023-10-16 01:55 | MHC.EDTECH ---
EKG taken per order and signed by provider,vitals taken and BP is elevated 174/96 RN is aware. Belongings list completed and copy placed in chart.
[2023-10-16] MEDS: Calcium Gluconate/NaCl,Iso-Osm 2 GM/100 ML PLAST..BAG IV (01:56)
[2023-10-16] MEDS: Insulin Regular, Human 100 UNIT/ML 3 ML VIAL IVPUSH (01:56)
[2023-10-16] MEDS: Sodium Zirconium Cyclosilicate 10 GM POWD.PACK PO (01:56)
[2023-10-16] MEDS: Sodium Bicarbonate 8.4% 50 MEQ/50 ML SYRINGE IVPUSH (01:56)
[2023-10-16 01:57] LABS: Magnesium 2.2 mg/dL (1.6-2.6); Phosphorus 6.6 mg/dL (2.7-4.5)
--- NOTE | 2023-10-16 02:29 | MHC.EDTECH ---
Vitals taken and POC is 105 RN Leda aware
[2023-10-16] MEDS: Albuterol Sulfate 7.5 MG, Albuterol Sulfate (0.083%) 2.5 MG 10 MG INHALE (02:34)
[2023-10-16 02:35] LABS: Glucose, Whole Blood 105 mg/dL (60-115)
[2023-10-16] MEDS: Dextrose 10 % 250 ML 750 ML IV (02:39)
--- NOTE | 2023-10-16 03:31 | MHC.EDTECH ---
POC taken and is 148 RN aware
[2023-10-16 03:37] LABS: Glucose, Whole Blood 148 mg/dL (60-115)
--- NOTE | 2023-10-16 04:23 | MHC.EDTECH ---
Hourly rounds and vitals completed,BP is elevated 175/69 RN aware
[2023-10-16] MEDS: ondansetron HCL 4 MG/2 ML VIAL IVPUSH (04:39)
[2023-10-16] MEDS: Morphine Sulfate 4 MG/ML CARTRIDGE IVPUSH (04:39)
[2023-10-16 04:50] LABS: Anion Gap 23 (12-20); Blood Urea Nitrogen 79 mg/dL (9-16); Calcium 9.1 mg/dL (8.4-10.2); Carbon Dioxide 27 mmol/L (22-29); Chloride 90 mmol/L (96-108); Creatinine Clr Calc Pharmacy 5.7; Estimated Glomerular Filt Rate 4; Glucose Random 223 mg/dL (60-115); Sodium 134 mmol/L (135-145)
--- NOTE | 2023-10-16 05:24 | P.HPHOSP_ITS ---
History of Present Illness Date of Service: 10/16/23 Attending physician on admission: Juan Cruz Chief Complaint: Constipation Cruz Muller is a 68 years old woman with past medical history significant for end- stage renal disease on hemodialysis (TTS) s/p permacath, COPD, CHF, hypertension and type 2 diabetes mellitus (not taking insulin or hypoglycemic agents) presents to the emergency department complaining of since yesterday. She mentioned that she has a hemorrhoids and has been straining. She also complained of generalized abdominal discomfort and back pain. She tried 4 different medications for constipation and was able to defecate a little bit. She denied nausea or vomiting. Denies fever or chills. She also denies headache, dizziness or palpitations. Denied any acute cardiopulmonary or genitourinary symptoms. She mentioned having numbness to her toes over the last 2 days. In the ED, she was found to have stable vital signs. Blood workup was remarkable for marked hyperkalemia of 7.3, creatinine is 9.58 and BUN 78. Phosphate is elevated, 6.6. Bicarb is normal. There is no leukocytosis. Hemoglobin is at baseline. COVID was obtained and showed no obstructive bowel gas pattern. ED tx: Lokelma 10 g p.o., calcium gluconate 2 g IV, bicarb 50 mEq IV, insulin R 5 units IV, morphine 4 mg IV, Zofran 4 mg IV albuterol 7.5 mg. Review of Systems 2 Review of Systems: All 12 systems were reviewed and normal except as noted in HPI. [facility] Medical History Hemorrhoids with complication ESRD on dialysis Delirium Sepsis Tachycardia Leukocytosis Fever End stage chronic kidney disease Congestive heart failure with left ventricular dysfunction ESRD (end stage renal disease) Hypertension Pulmonary congestion COVID-19 virus infection Asthma with COPD with exacerbation COVID ESRD (end stage renal disease) Hypertrophic cardiomyopathy Acute exacerbation of chronic obstructive pulmonary disease (COPD) Heart failure with preserved ejection fraction Constipation End stage renal disease on dialysis Ascites Anasarca Ischemic colitis Acute GI bleeding Anemia Dialysis patient, noncompliant Anemia in chronic kidney disease Opioid withdrawal Essential hypertension Diabetes mellitus Family History Other Hypertension Surgical History No pertinent past surgical history Social History Household Members: None Housing: Apartment Do you presently have visiting nurse or other home services: Yes Unable to assess alcohol history related to: Unknown Alcohol intake: never Comment: pt refuses high fall risk protocol Patient Tobacco Use Status: Never used Tobacco Tobacco use type: Cigarette Cigarettes Per Day: 2 Years Smoked: 50 +/- Smoked in Last 30 Days: Yes e-Cigarette/Vaping Use: Former Use Second Hand Smoke Exposure: No Use of substances other than those prescribed or required for medical reasons: Yes Substance Use Type: Marijuana Substance Use Frequency: Occasionally Advance Directives: Yes Advance Directives on File: Yes Advance Directives Date on File: 04/17/22 Do you have a plan to hurt others: No Plan service: No Current occupational status: disabled Meds Allergies Allergy/AdvReac Type Severity Reaction Status Date / Time No Known Allergies Allergy Mild NOT Verified 10/16/23 00:57 APPLICABLE Active Medications: Current Medications Acetaminophen (Acetaminophen 325 Mg Tablet) 975 mg PO Q6H PRN PRN Reason: mild pain, headache or fever Heparin Sodium (Porcine) (Heparin Sodium,Porcine 5,000 Unit/Ml Vial) 5,000 unit SUBCUT Q12H PHAN Dextrose (D10) 250 mls @ 750 mls/hr IV Q15M PRN PRN Reason: per Hypoglycemia Standing Ord. Last Infusion: 10/16/23 02:59 Dose: Infused Lactulose (Lactulose 20 Gm/30 Ml Solution) 30 gm PO TID PHAN Sodium Chloride (0.9 % Sodium Chloride Flush 3 Ml Syringe) 3 ml IVFLUSH QSHIFT [facility] Home Medications ?Medication ?Instructions ?Recorded ?Confirmed ?Last Taken ?Type buprenorphine 8 mg-naloxone 2 mg 1 strip sublingual BID 10/22/20 10/03/23 05/06/22 History sublingual film (Suboxone) fluticasone propionate 110 1 puff inhalation BID 04/15/21 10/03/23 Unknown History mcg/actuation HFA aerosol inhaler (Flovent HFA) melatonin 5 mg tablet 5 mg PO BEDTIME PRN Sleep 04/15/21 10/03/23 Unknown History pantoprazole 40 mg tablet,delayed 40 mg PO DAILY@0630 04/15/21 10/03/23 05/06/22 History release sennosides 8.6 mg tablet (senna) 1 tab PO BEDTIME PRN constipation 05/11/21 10/03/23 Unknown History aspirin 81 mg tablet,delayed 1 tab PO DAILY 10/11/21 10/03/23 05/06/22 History release albuterol sulfate 90 mcg/actuation 2 puff inhalation Q4H PRN wheezing 01/31/22 10/03/23 Unknown History aerosol inhaler (Ventolin HFA) ondansetron 4 mg disintegrating 4 mg PO BID PRN nausea and vomiting 03/09/22 10/03/23 Unknown History tablet carvedilol 6.25 mg tablet 1 tab PO BID 04/24/22 10/03/23 05/06/22 History albuterol sulfate 2.5 mg/3 mL 1 amp inhalation TID PRN Shortness 05/08/22 10/03/23 Unknown History (0.083 %) solution for nebulization Of Breath amlodipine 10 mg tablet 10 mg PO DAILY 07/10/22 10/03/23 Unknown History hydralazine 100 mg tablet 100 mg PO TID 07/10/22 10/03/23 Unknown History isosorbide dinitrate 30 mg tablet 30 mg PO TID 07/10/22 10/03/23 Unknown History calcium acetate(phosphat bind) 667 1,334 mg PO TIDWM 03/13/23 10/03/23 Unknown History mg capsule clonidine HCl 0.1 mg tablet 0.1 mg PO BID 03/13/23 10/03/23 Unknown History lactulose 10 gram/15 mL oral 20 g PO DAILY PRN constipation 03/13/23 10/03/23 Unknown History solution mirtazapine 15 mg tablet 15 mg PO BEDTIME 03/13/23 10/03/23 Unknown History Physical Exam 2 Vital Signs and Narrative: Vital Signs: Last Vital Signs Temp 98.6 F 10/16/23 04:22 Pulse 69 10/16/23 04:22 Resp 18 10/16/23 04:39 BP 175/69 H 10/16/23 04:22 Pulse Ox 96 10/16/23 04:22 O2 Del Method Room Air 10/16/23 04:22 BMI result Body Mass Index 26.6 Constitutional - Sleeping soundly but quite alert upon waking her up. No distress. Afebrile. HEENT- Pupils equally round, normal sclera. Heart - S1S2, RRR. No murmurs. Lungs - Normal lung expansion, Normal respiratory effort, No respiratory distress, CTA bilaterally Abdomen - Decreased bowel sounds. Nondistended. General discomfort. No tenderness. No rebound. No guarding. Extremities - no calf tenderness bilaterally, no swelling Musculoskeletal - Normal inspection, normal ROM Skin - Warm/Dry Neurological - Alert & oriented x3. No gross focal weakness. Normal speech. Decreased sensation to the toes. Psychological - Appropriate affect Results Labs 10/16/23 01:14 10/16/23 04:25 Labs: Laboratory Results - last 24 hr 10/16/23 10/16/23 10/16/23 01:14 02:28 03:31 MCV 97.5 MCH 33.1 H MCHC 34.0 RDW 14.1 Plt Count 174 MPV 10.3 Immature Gran % (Auto) 0.4 Neut % (Auto) 64.8 Lymph % (Auto) 20.3 [place] % (Auto) 8.0 Eos % (Auto) 6.2 H Baso % (Auto) 0.3 Lymph # (Auto) 1.5 [place] # (Auto) 0.6 Eos # (Auto) 0.5 H Baso # (Auto) 0.0 Abs Immat Gran (auto) 0.03 Absolute Neuts (auto) 4.8 Absolute Nucleated RBC 0.000 Nucleated RBC % (auto) 0.0 Anion Gap 23 H Estim Creat Clear Calc 5.4 Estimated GFR 4 POC Glucose 105 148 H Random Glucose 150 H Calcium 9.2 D Phosphorus 6.6 H Magnesium 2.2 Total Bilirubin 0.3 AST 17 ALT 14 Alkaline Phosphatase 193 H Total Protein 7.4 Albumin 3.9 Lipase 19 10/16/23 04:25 MCV MCH MCHC RDW Plt Count MPV Immature Gran % (Auto) Neut % (Auto) Lymph % (Auto) [place] % (Auto) Eos % (Auto) Baso % (Auto) Lymph # (Auto) [place] # (Auto) Eos # (Auto) Baso # (Auto) Abs Immat Gran (auto) Absolute Neuts (auto) Absolute Nucleated RBC Nucleated RBC % (auto) Anion Gap 23 H Estim Creat Clear Calc 5.7 Estimated GFR 4 POC Glucose Random Glucose 223 H Calcium 9.1 Phosphorus Magnesium Total Bilirubin AST ALT Alkaline Phosphatase Total Protein Albumin Lipase Imaging Radiologist's Impressions: Impressions KUB X-Ray 10/16/23 01:43 IMPRESSION: Nonobstructive bowel gas pattern. Assessment and Plan (1) Acute hyperkalemia: Status: Acute (2) Essential hypertension: Status: Acute (3) ESRD (end stage renal disease) on dialysis: Status: Acute Plan Cruz Muller is a 68 y/o woman admitted with: * Hyperkalemia secondary to end-stage renal disease. s/p insulin R, bicarb IV, Lokelma, albuterol 10 mg neb, calcium gluconate IV. Improving 7.3 --> 6.0. No acidosis or evidence of fluid overload. No peaked T-waves or QRS widening. Admit to hospitalist service. Telemetry. [employer]ing contacted by ED and we will perform hemodialysis at 6 am. Continue to monitor. Low-potassium diet. * Constipation. Lactulose 30 g p.o. t.i.d. Continue other home laxative and stool softners. * Abdominal discomfort likely secondary to constipation. Lactulose. * Tingling sensation to the toes. Likely neuropathy. * Hemorrhoids. She was told she has not a candidate for hemorrhoidectomy due to multiple medical comorbidities. * Type 2 diabetes mellitus. BG checks before meals and bedtime. Insulin sliding scale. Diabetic diet. * COPD. Continue inhalers and oxygen * Opiate dependence. Continue Suboxone. * Essential hypertension. Continue home medications. * HFpEF. No symptoms at this time. Continue home medications. * Chronic anemia. Continue to monitor. DVT prophylaxis: Heparin subcut Code status: Full Patient will need hospitalization for at least 2 midnights for hyperkalemia treatment with urgent hemodialysis and continuous cardiac monitoring. Quality Stroke Does the patient have a stroke diagnosis?: No VTE Prior VTE?: No VTE Risk Level:: Medical - moderate - high VTE Device Contraindication: Treatment Not Indicated VTE Drug Contraindication: N/A - Med Ordered
[2023-10-16] MEDS: Lactulose 20 GM/30 ML SOLUTION 30 GM PO ×2 (06:04→22:16)
[2023-10-16 07:39] LABS: Glucose, Whole Blood 145 mg/dL (60-115)
--- NOTE | 2023-10-16 08:33 | PHA.MEDREC ---
Pharmacy Consult ? Medication Reconciliation Pharmacy has completed the medication reconciliation. Utilized [facility]. Patient no longer taking hydralazine, senna.
--- NOTE | 2023-10-16 08:42 | PC.NURSE ---
awake and alert. room air, resp even and unlabored. speaking in full clear sentences. abd soft, skin wcd. taken to dialysis this AM.
--- NOTE | 2023-10-16 08:50 | MHC.CM.PN ---
CM ATTEMPTED TO SEE PT WITH BOARDING KENNEL OR CATTERY OPERATOR PT OFF UNIT FOR HD CM TO RETURN
[2023-10-16 13:22] LABS: Glucose, Whole Blood 175 mg/dL (60-115)
[2023-10-16] MEDS: 0.9 % Sodium Chloride Flush 3 ML SYRINGE IVFLUSH ×3 (13:45→22:17)
[2023-10-16] MEDS: Insulin Lispro 100 UNIT/ML 3 ML VIAL SUBCUT (13:46)
--- NOTE | 2023-10-16 14:38 | PM.EVENT ---
Event Note Date of Service: 10/16/23 Event Note: This patient is seen and examined by hospitalist team this morning ,seen and exmained again denies new c/o passed big bm Physical exam: similar to h&P assessment and plan coordinated in APCs note, Agree with the plan in addition: hyperkalemia ,agma -sec to esrd-need HD hold losartan repeat bmp this afternoon constipation -passed big bm. htn uncontrolled: added back -amlodipine ,clonidine ,coreg (home meds Time Spent With Patient Time: Total time managing care of this patient today ____ minutes.
[2023-10-16] MEDS: amLODIPine Besylate 5 MG TABLET PO (15:06)
[2023-10-16] MEDS: Aspirin Enteric Coated 81 MG TABLET.DR PO (15:06)
[2023-10-16] MEDS: carvediloL 6.25 MG TABLET PO ×2 (15:06→22:16)
[2023-10-16] MEDS: cloNIDine HCL 0.1 MG TABLET PO ×2 (15:07→22:16)
[2023-10-16 15:42] LABS: Anion Gap 15 (12-20); Blood Urea Nitrogen 20 mg/dL (9-16); Calcium 9.3 mg/dL (8.4-10.2); Carbon Dioxide 25 mmol/L (22-29); Chloride 97 mmol/L (96-108); Creatinine Clr Calc Pharmacy 11.2; Estimated Glomerular Filt Rate 9; Glucose Random 174 mg/dL (60-115); Potassium 4.4 mmol/L (3.3-5.1); Sodium 133 mmol/L (135-145)
[2023-10-16] MEDS: Buprenorphine/Naloxone 8/2 mg FILM 1 FILM SUBLINGUAL ×2 (15:57→22:16)
--- NOTE | 2023-10-16 16:06 | P.CONNP_ITS ---
History of Present Illness Reason for Consult Consult date: 10/16/23 Chief Complaint Chief complaint: Hyperkalemia History of Present Illness Narrative: Full CONSULT DICTATED ESRD ADM WITH HYPERK AND NOW ON EMERGENT HD 1 K BATH BP HIGH CONT WITH SEVERE RECATL PAIN SHE ATTRIBUTES TO HEMMORID--GI AND SURG TO EVAL; QUES CADIDATE FOR ENDOVASC INTERVENTION IF TOO HIGH A SURGCAL RISK WILL FOLLOW W [facility] Past Medical History Medical History Hemorrhoids with complication ESRD on dialysis Delirium Sepsis Tachycardia Leukocytosis Fever End stage chronic kidney disease Congestive heart failure with left ventricular dysfunction ESRD (end stage renal disease) Hypertension Pulmonary congestion COVID-19 virus infection Asthma with COPD with exacerbation COVID ESRD (end stage renal disease) Hypertrophic cardiomyopathy Acute exacerbation of chronic obstructive pulmonary disease (COPD) Heart failure with preserved ejection fraction Constipation End stage renal disease on dialysis Ascites Anasarca Ischemic colitis Acute GI bleeding Anemia Dialysis patient, noncompliant Anemia in chronic kidney disease Opioid withdrawal Essential hypertension Diabetes mellitus Family History Family History Other Hypertension Surgical History Surgical History No pertinent past surgical history Social History Social History Household Members: None Housing: Apartment Do you presently have visiting nurse or other home services: Yes Unable to assess alcohol history related to: Unknown Alcohol intake: never Comment: pt refuses high fall risk protocol Patient Tobacco Use Status: Never used Tobacco Tobacco use type: Cigarette Cigarettes Per Day: 2 Years Smoked: 50 +/- Smoked in Last 30 Days: Yes e-Cigarette/Vaping Use: Former Use Second Hand Smoke Exposure: No Use of substances other than those prescribed or required for medical reasons: Yes Substance Use Type: Marijuana Substance Use Frequency: Occasionally Advance Directives: Yes Advance Directives on File: Yes Advance Directives Date on File: 04/17/22 Do you have a plan to hurt others: No Plan service: No Current occupational status: disabled Meds Allergies Allergy/AdvReac Type Severity Reaction Status Date / Time No Known Allergies Allergy Mild NOT Verified 10/16/23 00:57 APPLICABLE Active Medications: Current Medications Acetaminophen (Acetaminophen 325 Mg Tablet) 975 mg PO Q6H PRN PRN Reason: mild pain, headache or fever Albuterol Sulfate (Albuterol Sulfate (0.083%) 2.5 Mg/3 Ml Vial.Neb) 2.5 mg INHALE TID PRN PRN Reason: Shortness Of Breath Albuterol Sulfate (Albuterol Sulfate 90 Mcg 8 Gm Inhaler) 2 puff INHALE Q4H PRN PRN Reason: wheezing Amlodipine Besylate (Amlodipine Besylate 5 Mg Tablet) 5 mg PO DAILY [facility]; Protocol Last Admin: 10/16/23 15:06 Dose: 5 mg Aspirin (Aspirin Enteric Coated 81 Mg Tablet.Dr) 81 mg PO DAILY [facility] Last Admin: 10/16/23 15:06 Dose: 81 mg Buprenorphine/Naloxone (Buprenorphine/Naloxone 8/2 Mg Film) 1 film SUBLINGUAL BID [facility] Last Admin: 10/16/23 15:57 Dose: 1 film Calcium Acetate (Calcium Acetate 667 Mg Capsule) 1,334 mg PO TIDWM [facility] Carvedilol (Carvedilol 6.25 Mg Tablet) 6.25 mg PO BID [facility]; Protocol Last Admin: 10/16/23 15:06 Dose: 6.25 mg Clonidine HCl (Clonidine Hcl 0.1 Mg Tablet) 0.1 mg PO BID [facility]; Protocol Last Admin: 10/16/23 15:07 Dose: 0.1 mg Diphenhydramine HCl (Diphenhydramine Hcl 25 Mg Capsule) 25 mg PO DAILY PRN PRN Reason: allergy symptoms Docusate Sodium (Docusate Sodium 100 Mg Capsule) 100 mg PO BID [facility] Fluticasone Propionate (Fluticasone Propionate 100 Mcg Blst.W.Dev) 1 puff INHALE RBID [facility] Glucose (Glucose Gel 15 Gm Gel..Gram.) 15 gm PO Q15M PRN; Protocol PRN Reason: per Hypoglycemia Standing Ord. Heparin Sodium (Porcine) (Heparin Sodium,Porcine 5,000 Unit/Ml Vial) 5,000 unit SUBCUT Q12H [facility] Dextrose (D10) 250 mls @ 750 mls/hr IV Q15M PRN PRN Reason: per Hypoglycemia Standing Ord. Last Infusion: 10/16/23 02:59 Dose: Infused Dextrose (D10) 250 mls @ 750 mls/hr IV Q15M PRN; Protocol PRN Reason: per Hypoglycemia Standing Ord. Insulin Human Lispro (Insulin Lispro 100 Unit/Ml 3 Ml Vial) 0 unit SUBCUT QIDACHS [facility]; Protocol Last Admin: 10/16/23 13:46 Dose: 2 unit Isosorbide Dinitrate (Isosorbide Dinitrate 10 Mg Tablet) 30 mg PO TID [facility]; Protocol Lactulose (Lactulose 20 Gm/30 Ml Solution) 30 gm PO TID [facility] Last Admin: 10/16/23 15:10 Dose: Not Given Melatonin (Melatonin 3 Mg Tablet) 6 mg PO BEDTIME PRN PRN Reason: Sleep Mirtazapine (Mirtazapine 15 Mg Tablet) 15 mg PO BEDTIME [facility] Nicotine (Nicotine 14 Mg Patch.Td24) 14 mg TRANSDERMA DAILY [facility] Non-Formulary Medication (Diclofenac Sodium) 2 gm TOPICAL BID PRN PRN Reason: Pain Omeprazole (Omeprazole 20 Mg Capsule.Dr) 20 mg PO DAILY@629 [facility] Ondansetron HCl (Ondansetron Odt 4 Mg Tab.Rapdis) 4 mg TRANSLINGU BID PRN PRN Reason: nausea and vomiting Polyethylene Glycol (Polyethylene Glycol 3350 17 Gm Powd.Pack) 17 gm PO DAILY [facility] Psyllium Hydrophilic Mucilloid (Psyllium Seed 3.7 Gm Packet) 3.7 gm PO DAILY [facility] Sodium Chloride (0.9 % Sodium Chloride Flush 3 Ml Syringe) 3 ml IVFLUSH QSHIFT [facility] Last Admin: 10/16/23 13:45 Dose: 3 ml Home Medications ?Medication ?Instructions ?Recorded ?Confirmed ?Last Taken ?Type buprenorphine 8 mg-naloxone 2 mg 1 film sublingual BID 10/22/20 10/16/23 10/15/23 History sublingual film (Suboxone) melatonin 5 mg tablet 5 mg PO BEDTIME PRN Sleep 04/15/21 10/16/23 Unknown History pantoprazole 40 mg tablet,delayed 40 mg PO DAILY@0630 04/15/21 10/16/23 10/15/23 History release aspirin 81 mg tablet,delayed 1 tab PO DAILY 10/11/21 10/16/23 10/15/23 History release albuterol sulfate 90 mcg/actuation 2 puff inhalation Q4H PRN wheezing 01/31/22 10/16/23 Unknown History aerosol inhaler (Ventolin HFA) ondansetron 4 mg disintegrating 4 mg PO BID PRN nausea and vomiting 03/09/22 10/16/23 Unknown History tablet carvedilol 6.25 mg tablet 1 tab PO BID 04/24/22 10/16/23 10/15/23 History albuterol sulfate 2.5 mg/3 mL 1 amp inhalation TID PRN Shortness 05/08/22 10/16/23 Unknown History (0.083 %) solution for nebulization Of Breath isosorbide dinitrate 30 mg tablet 30 mg PO TID 07/10/22 10/16/23 10/15/23 History calcium acetate(phosphat bind) 667 1,334 mg PO TIDWM 03/13/23 10/16/23 10/15/23 History mg capsule clonidine HCl 0.1 mg tablet 0.1 mg PO BID 03/13/23 10/16/23 10/15/23 History lactulose 10 gram/15 mL oral 20 g PO DAILY constipation 03/13/23 10/16/23 10/15/23 History solution mirtazapine 15 mg tablet 15 mg PO BEDTIME 03/13/23 10/16/23 10/15/23 History acetaminophen 500 mg tablet 500 mg PO TID PRN Pain 10/16/23 10/16/23 Unknown History amlodipine 5 mg tablet 5 mg PO DAILY 10/16/23 10/16/23 10/15/23 History diclofenac sodium 1 % topical gel 2 g topical BID PRN Pain 10/16/23 10/16/23 Unknown History docusate sodium 100 mg capsule 100 mg PO BID 10/16/23 10/16/23 10/15/23 History (Colace) fluticasone propionate 110 1 puff inhalation BID 10/16/23 10/16/23 10/15/23 History mcg/actuation HFA aerosol inhaler hydrocortisone 2.5 % topical cream 1 appl FL BID PRN Pain 10/16/23 10/16/23 Unknown History with perineal applicator nicotine 14 mg/24 hr daily 1 patch topical DAILY 10/16/23 10/16/23 10/15/23 History transdermal patch polyethylene glycol 3350 17 17 g PO DAILY 10/16/23 10/16/23 10/15/23 History gram/dose oral powder Physical Exam Vital Signs: Last Vital Signs Temp 97.9 F 10/16/23 13:05 Pulse 74 10/16/23 15:06 Resp 12 10/16/23 13:05 BP 192/81 H 10/16/23 15:07 Pulse Ox 94 10/16/23 13:05 O2 Del Method Room Air 10/16/23 13:05 BMI result Body Mass Index 26.6 Results Lab Results 10/16/23 01:14 10/16/23 15:07 Lab results: Chemistry 10/16/23 10/16/23 10/16/23 01:14 04:25 15:07 Sodium 134 L 134 L 133 L Potassium 7.3 H* D 6.0 H* 4.4 D Carbon Dioxide 29 27 25 BUN 78 H 79 H 20 H Creatinine 9.58 H* 9.11 H* 4.65 H* Calcium 9.2 D 9.1 9.3 Phosphorus 6.6 H Hematology 10/16/23 01:14 WBC 7.4 Hgb 10.6 L Plt Count 174 Procedures Date of Service Date of Service: 10/16/23
[2023-10-16] MEDS: Isosorbide Dinitrate 10 MG TABLET 30 MG PO ×2 (16:13→22:16)
[2023-10-16] MEDS: Calcium Acetate 667 MG CAPSULE 1334 MG PO (16:13)
[2023-10-16] MEDS: Acetaminophen 325 MG TABLET 975 MG PO (16:20)
--- NOTE | 2023-10-16 17:11 | MHC.EDTECH ---
pt was transferred from ER stretcher to hospital bed for comfort purposes, rn aware. pt now comfortable in bed, call cruz within reach.
[2023-10-16 18:02] LABS: Glucose, Whole Blood 97 mg/dL (60-115)
[2023-10-16] MEDS: Fluticasone Propionate 100 MCG BLST.W.DEV 1 PUFF INHALE (19:24)
[2023-10-16 21:10] LABS: Glucose, Whole Blood 136 mg/dL (60-115)
[2023-10-16 22:02] LABS: Anion Gap 19 (12-20); Carbon Dioxide 22 mmol/L (22-29); Chloride 97 mmol/L (96-108); Potassium 5.6 mmol/L (3.3-5.1); Sodium 132 mmol/L (135-145)
[2023-10-16] MEDS: Mirtazapine 15 MG TABLET PO (22:16)
[2023-10-16] MEDS: Docusate Sodium 100 MG CAPSULE PO (22:17)
[2023-10-16] MEDS: Heparin Sodium,Porcine 5,000 UNIT/ML VIAL 5000 UNIT SUBCUT (22:17)
--- NOTE | 2023-10-16 23:22 | CONS_ITS ---
DATE OF SERVICE: REASON FOR CONSULTATION: I was asked to see patient to assist in evaluation and management of patient's hyperkalemia; and ESRD, need for dialysis. HISTORY OF PRESENT ILLNESS: In summary, she is a 68-year-old female, well known to me with a history of end-stage renal disease, normally dialyzes Sunday, , Sunday via PermCath; underlying COPD; CHF; hypertension; type 2 diabetes, came to the emergency room complaining of hemorrhoidal pain. She had been seen by the surgeon, Dr. Luis and being evaluated. She denies any shortness of breath, nausea, fever, sweats, or chills. In the emergency room, she is noted to have potassium of 7.3. In the emergency room, she was treated with insulin, glucose, calcium along with Lokelma. PAST MEDICAL HISTORY: As noted in the records; ESRD, hypertension, diabetes, prone to fluid overload, hyperkalemia, hemorrhoidal pain, CHF. MEDICATIONS: Her medications on admission noted in the admitting notes. Current medications noted in the MAR. ALLERGIES: SHE HAS NO KNOWN DRUG ALLERGIES. SOCIAL HISTORY: She is a nonsmoker, nondrinker. No illicit drug use. FAMILY HISTORY: Noncontributory. REVIEW OF SYSTEMS: As noted above. PHYSICAL EXAMINATION: VITAL SIGNS: Blood pressure of 180/80 with a heart rate in the 70s. HEENT: Head is atraumatic and normocephalic. Mucous membranes are moist. LUNGS: Breath sounds bilaterally. CARDIAC: Regular rate and rhythm. ABDOMEN: Soft, obese, and nontender. She appears to be in quite a bit of pain. LABORATORY DATA: Labs show hemoglobin 10.6, hematocrit 31.2, white blood cell count 7.4. Sodium 133, potassium 4.4, chloride 97. On admission, potassium was 7.3. IMPRESSION: End-stage renal disease patient admitted with severe hyperkalemia in the setting of severe hemorrhoidal pain and hypertension. 1. End-stage renal disease. We will continue on her Sunday, , Sunday dialysis schedule. 2. Hyperkalemia. She is on a low-potassium diet and monitor potassiums. Watch for rebound. 3. Rectal pain. She is being seen by GI and Surgery to see what can be done. 4. Severe hypertension. This seems to be pain driven. We will continue blood pressure medications and monitor and use p.r.n. blood pressure medications and control her pain. We will follow the patient with the team. MD BABAK White/GRACIE / [phone]
[2023-10-17] VITALS: BP 165/70; PULSE 58; RESP 16; TEMP 36; O2SAT 98
[2023-10-17] MEDS: Sodium Zirconium Cyclosilicate 10 GM POWD.PACK PO (00:13)
[2023-10-17 04:00] VITALS: BP 141/65; PULSE 58; RESP 16; TEMP 36.4; O2SAT 98
[2023-10-17] MEDS: Acetaminophen 325 MG TABLET 975 MG PO ×2 (04:40→10:16)
[2023-10-17] MEDS: Omeprazole 20 MG CAPSULE.DR PO (05:36)
[2023-10-17 05:38] VITALS: BMI 27.4
[2023-10-17 06:33] LABS: Hematocrit 30.2 % (37.0-47.0); Hemoglobin 9.9 g/dl (12.0-16.0); Mean Corpuscular HGB Conc 32.8 g/dl (31.0-35.0); Mean Corpuscular Hemoglobin 32.1 pg (27.0-33.0); Mean Corpuscular Volume 98.1 fL (80.0-98.0); Mean Platelet Volume 10.9 fL (9.4-12.3); Platelet Count 164 X10*3/uL (160-400); Red Blood Count 3.08 X10*6/uL (4.20-5.50); Red Cell Distribution Width 13.8 % (11.0-16.0); White Blood Count 5.5 X10*3/uL (4.8-10.8)
[2023-10-17 07:16] LABS: Alanine Aminotransferase 15 U/L (0-31); Albumin Level 3.6 g/dL (3.5-5.0); Alkaline Phosphatase 172 U/L (39-117); Anion Gap 19 (12-20); Aspartate Amino Transferase 18 U/L (5-31); Bilirubin Total 0.3 mg/dL (0.0-1.0); Blood Urea Nitrogen 40 mg/dL (9-16); Calcium 8.5 mg/dL (8.4-10.2); Carbon Dioxide 22 mmol/L (22-29); Chloride 97 mmol/L (96-108); Creatinine Clr Calc Pharmacy 8.2; Estimated Glomerular Filt Rate 6; Glucose Random 116 mg/dL (60-115); Sodium 133 mmol/L (135-145); Total Protein 6.9 g/dL (6.5-8.0)
[2023-10-17 08:00] VITALS: BP 188/86; PULSE 60; RESP 20; TEMP 36.7; O2SAT 98
[2023-10-17 08:07] LABS: Glucose, Whole Blood 98 mg/dL (60-115)
[2023-10-17] MEDS: Fluticasone Propionate 100 MCG BLST.W.DEV 1 PUFF INHALE (08:53)
[2023-10-17 08:56] VITALS: PULSE 65; RESP 20; O2SAT 100
--- NOTE | 2023-10-17 09:49 | MHC.CM.PN ---
IMM 10/16. This CM met with pt with a scheduling administrator to assist with intake assessment. Pt lives alone and receives PHYSIOLOGICAL CHEMIST services 48.5hrs/week, SN VNA services through [facility], and goes to HD at [facility] on //Sun. Pt uses a walker. Pt states her PHYSIOLOGICAL CHEMIST will transport her home at discharge. HCP on file and verified. PCP: Dr. Sammy Vicente
[2023-10-17] MEDS: Buprenorphine/Naloxone 8/2 mg FILM 1 FILM SUBLINGUAL (10:15)
[2023-10-17] MEDS: Nicotine 14 MG PATCH.TD24 TRANSDERMA (10:15)
[2023-10-17] MEDS: carvediloL 6.25 MG TABLET PO (10:16)
[2023-10-17] MEDS: Psyllium seed 3.7 GM PACKET PO (10:16)
[2023-10-17] MEDS: Docusate Sodium 100 MG CAPSULE PO (10:16)
[2023-10-17] MEDS: Isosorbide Dinitrate 10 MG TABLET 30 MG PO (10:16)
[2023-10-17] MEDS: Aspirin Enteric Coated 81 MG TABLET.DR PO (10:16)
[2023-10-17] MEDS: cloNIDine HCL 0.1 MG TABLET PO (10:16)
[2023-10-17] MEDS: 0.9 % Sodium Chloride Flush 3 ML SYRINGE IVFLUSH (10:17)
[2023-10-17] MEDS: Heparin Sodium,Porcine 5,000 UNIT/ML VIAL 5000 UNIT SUBCUT (10:17)
[2023-10-17] MEDS: Calcium Acetate 667 MG CAPSULE 1334 MG PO (10:19)
[2023-10-17 11:21] LABS: Glucose, Whole Blood 111 mg/dL (60-115)
[2023-10-17 12:00] VITALS: BP 156/74; PULSE 56; RESP 20; TEMP 36.7; O2SAT 97
--- NOTE | 2023-10-17 12:38 | P.DS_ITS ---
DS: Providers Provider Date of Service: 10/17/23 Date of admission: 10/16/23 05:19 Date of discharge: 10/17/23 Primary care physician: Unknown Physician Consults: 10/16/23 05:23 Consult to Nephrology Routine Consulting Provider: Kassie Chen Reason for consultation: ESRD on HD, hyperkalemia Has provider been notified: Yes Attending physician on discharge: Pankaj Calzada Discharging clinician: Pankaj Calzada DS: Diagnosis Discharge Diagnosis (1) Acute hyperkalemia: Status: Acute (2) Essential hypertension: Status: Acute (3) ESRD (end stage renal disease) on dialysis: Status: Acute DS: Summary Hospital Course Hospital Course: 68 years old woman with past medical history significant for end-stage renal disease on hemodialysis (TTS) s/p permacath, COPD, CHF, hypertension and type 2 diabetes mellitus (not taking insulin or hypoglycemic agents) presents to the emergency department complaining of since yesterday. She mentioned that she has a hemorrhoids and has been straining. She also complained of generalized abd ominal discomfort and back pain. She tried 4 different medications for constipation and was able to defecate a little bit. She denied nausea or vomiting. Denies fever or chills. She also denies headache, dizziness or palpitations. Denied any acute cardiopulmonary or genitourinary symptoms. She mentioned having numbness to her toes over the last 2 days. In the ED, she was found to have stable vital signs. Blood workup was remarkable for marked hyperkalemia of 7.3, creatinine is 9.58 and BUN 78. Phosphate is elevated, 6.6. Bicarb is normal. There is no leukocytosis. Hemoglobin is at baseline. COVID was obtained and showed no obstructive bowel gas pattern. ED tx: Lokelma 10 g p.o., calcium gluconate 2 g IV, bicarb 50 mEq IV, insulin R 5 units IV, morphine 4 mg IV, Zofran 4 mg IV albuterol 7.5 mg. Hospital course: Patient was admitted for hyperkalemia has history of ESRD-discuss with Nephrology possibly related to diet and also on losartan: Patient was given he modialysis and hyperkalemia seems to be improved, patient was strongly advised for dietary compliance with low-potassium diet, also losartan was discontinued. Further use of losartan out patiently as per Nephro. Patient says she will follow-up BMP tomorrow with her PCP because she has appointment there. Constipation: Patient was given laxative and seems to be improved, producing BMs , continue laxatives -avoid constipation considering also has question of hemorrhoids as per patient. Also advised to follow-up out patiently with PCP and consider outpatient GI evaluation for hemorrhoid. Denies any anal pain currently. Uncontrolled hypertension: Adjusted amlodipine to 10 mg since losartan needs stopped, continue home blood pressure medications, monitor blood pressure outpatient. Further management as per PCP. Time Attestation Total time managing care of this patient today: 40 mintues. Discharge Coordination Time (in mins): 40 min Quality: Safe Use of Opioids Does Pt have an Active Cancer Diagnosis on the Problem List?: No Quality: Stroke Does the patient have a stroke diagnosis?: No Physical Exam Vital Signs: Vital Signs: Last Vital Signs Temp 98.0 F 10/17/23 12:00 Pulse 56 10/17/23 12:00 Resp 20 10/17/23 12:00 BP 156/74 H 10/17/23 12:00 Pulse Ox 97 10/17/23 12:00 O2 Del Method Room Air 10/17/23 12:00 BMI result Body Mass Index 27.4 DS: Data Data Completed and Pending Completed studies during hospitalization [Text1]: Procedures Assistance with Respiratory Ventilation, Less than 24 Consecutive Hours, Continuous Positive Airway Pressure (04/14/22) Excision of Left Kidney, Percutaneous Approach, Diagnostic (02/25/21) Excision of Right Kidney, Percutaneous Approach, Diagnostic (10/22/20) Fluoroscopy of Superior Vena Cava using Low Osmolar Contrast, Guidance (08/07/22) Insertion of Endotracheal Airway into Trachea, Via Natural or Artificial Opening (10/12/21) Insertion of Infusion Device into Right Atrium, Percutaneous Approach (08/07/22) Insertion of Infusion Device into Superior Vena Cava, Percutaneous Approach (04/17/23) Insertion of Tunneled Vascular Access Device into Chest Subcutaneous Tissue and Fascia, Percutaneous Approach (04/17/23) Performance of Urinary Filtration, Intermittent, Less than 6 Hours Per Day (04/17/23) Removal of Totally Implantable Vascular Access Device from Trunk Subcutaneous Tissue and Fascia, Open Approach (08/07/22) Respiratory Ventilation, 24-96 Consecutive Hours (10/12/21) Transfusion of Nonautologous Red Blood Cells into Peripheral Vein, Percutaneous Approach (02/25/21) Ultrasonography of Superior Vena Cava, Guidance (04/17/23) Labs on day of discharge: Laboratory Results - last 24 hr 10/16/23 10/16/23 10/16/23 13:12 15:07 17:59 WBC RBC Hgb Hct MCV MCH MCHC RDW Plt Count MPV Absolute Nucleated RBC Nucleated RBC % (auto) Sodium 133 L Potassium 4.4 D Chloride 97 Carbon Dioxide 25 Anion Gap 15 BUN 20 H Creatinine 4.65 H* Estim Creat Clear Calc 11.2 Estimated GFR 9 POC Glucose 175 H 97 Random Glucose 174 H Calcium 9.3 Total Bilirubin AST ALT Alkaline Phosphatase Total Protein Albumin 10/16/23 10/16/23 10/17/23 20:59 21:12 06:03 WBC 5.5 RBC 3.08 L Hgb 9.9 L Hct 30.2 L MCV 98.1 H MCH 32.1 MCHC 32.8 RDW 13.8 Plt Count 164 MPV 10.9 Absolute Nucleated RBC 0.000 Nucleated RBC % (auto) 0.0 Sodium 132 L 133 L Potassium 5.6 H D 5.0 Chloride 97 97 Carbon Dioxide 22 22 Anion Gap 19 19 BUN 40 H Creatinine 6.43 H* Estim Creat Clear Calc 8.2 Estimated GFR 6 POC Glucose 136 H Random Glucose 116 H Calcium 8.5 D Total Bilirubin 0.3 AST 18 ALT 15 Alkaline Phosphatase 172 H Total Protein 6.9 Albumin 3.6 10/17/23 10/17/23 08:03 11:16 WBC RBC Hgb Hct MCV MCH MCHC RDW Plt Count MPV Absolute Nucleated RBC Nucleated RBC % (auto) Sodium Potassium Chloride Carbon Dioxide Anion Gap BUN Creatinine Estim Creat Clear Calc Estimated GFR POC Glucose 98 111 Random Glucose Calcium Total Bilirubin AST ALT Alkaline Phosphatase Total Protein Albumin Imaging Chest x-ray: Radiologist's impression: ITS Impressions KUB X-Ray 10/16/23 01:43 IMPRESSION: Nonobstructive bowel gas pattern. Discharge Plan Discharge Anticipated Discharge Date/Time: 10/17/23 12:26 Patient Disposition: Home Health Service Discharge Diagnosis: hyperkalemia ,uncontrolled htn ,constipation Referrals: Physician,Unknown J [Primary Care Provider] - 1 Week Discharge Medications: Continued buprenorphine-naloxone [Suboxone] 8-2 mg film 1 film sublingual BID pantoprazole 40 mg Tablet,Delayed Release (Dr/Ec) 40 mg PO DAILY@0630 melatonin 5 mg Tablet 5 mg PO BEDTIME PRN (Reason: Sleep) aspirin 81 mg tablet,delayed release (DR/EC) 1 tab PO DAILY albuterol sulfate [Ventolin HFA] 90 mcg/actuation HFA aerosol inhaler 2 puff INHALATION Q4H PRN (Reason: wheezing) ondansetron 4 mg tablet,disintegrating 4 mg PO BID PRN (Reason: nausea and vomiting) carvedilol 6.25 mg tablet 1 tab PO BID diphenhydramine HCl [Benadryl] 25 mg capsule 25 mg PO DAILY PRN (Reason: allergy symptoms) Qty: 30 0RF albuterol sulfate 2.5 mg /3 mL (0.083 %) solution for nebulization 1 amp inhalation TID PRN (Reason: Shortness Of Breath) isosorbide dinitrate 30 mg Tablet 30 mg PO TID Rx Instructions: allow nitrate-free interval of 12-14 hrs per 24-hr period lidocaine 5 % ointment 1 appl topical BEDTIME PRN (Reason: pain) Qty: 30 0RF clonidine HCl 0.1 mg tablet 0.1 mg PO BID mirtazapine 15 mg tablet 15 mg PO BEDTIME calcium acetate(phosphat bind) 667 mg capsule 1,334 mg PO TIDWM lactulose 10 gram/15 mL solution 20 g PO DAILY nicotine 14 mg/24 hr patch 24 hour 1 patch topical DAILY acetaminophen 500 mg tablet 500 mg PO TID PRN (Reason: Pain) hydrocortisone 2.5 % cream with perineal applicator 1 appl DE BID PRN (Reason: Pain) polyethylene glycol 3350 17 gram/dose powder 17 g PO DAILY diclofenac sodium 1 % gel 2 g topical BID PRN (Reason: Pain) docusate sodium [Colace] 100 mg capsule 100 mg PO BID fluticasone propionate 110 mcg/actuation HFA aerosol inhaler 1 puff INHALATION BID Metamucil (sugar) Powder 1 tbsp PO DAILY Qty: 1254 0RF Changed amlodipine 5 mg tablet 10 mg PO DAILY Qty: 90 0RF Discontinued losartan 50 mg Tablet 50 mg PO DAILY Qty: 30 0RF Protocol: Hold for SBP< HOLD for SBP < : 90 Discharge Orders: Discharge Order (Routine); Ordered 10/17/23 Ordered By: Pankaj Calzada Diet: Advance to usual diet Activity on Discharge: As tolerated Stand Alone Forms: Patient Portal Discharge page Print Language: Maltese Care Plan Goals: Patient was admitted for hyperkalemia has history of ESRD-discuss with Nephrology possibly related to diet and also on losartan: Patient was given hemodialysis and hyperkalemia seems to be improved, patient was strongly advised for dietary compliance with low-potassium diet, also losartan was discontinued. Further use of losartan out patiently as per Nephro. Patient says she will follow-up BMP tomorrow with her PCP because she has appointment there. Constipation: Patient was given laxative and seems to be improved, producing BMs , continue laxatives -avoid constipation considering also has question of hemorrhoids as per patient. Also advised to follow-up out patiently with PCP and consider outpatient GI evaluation for hemorrhoid. Denies any anal pain currently. Uncontrolled hypertension: Adjusted amlodipine to 10 mg since losartan needs stopped, continue home blood pressure medications, monitor blood pressure out patient. Further management as per PCP. Health Concerns: As above. Plan of Treatment: As above. Assessment: As above.
--- NOTE | 2023-10-17 12:43 | MHC.CM.PN ---
Addendum entered by Quynh Patrick 10/17/23 13:04: Pt informed her nurse that her [facility] is unable to transport her home today and she will need assistance getting home. This CM booked the [facility] [place] to transport pt home today at 1:30pm. Original Note: Pt is medically cleared for discharge home with resumption of previous [facility], and [employer] [facility], and HD at [facility]. Pts [facility]AL [facility] will transport her home.
== END 2023-10-17 13:25 | disposition home health service (06) | DRG 640 ==
LOC: HO.ED 02:08 → HO.EDOVER 05:34 → HO.IMC 19:16
PROVIDERS: Internal Medicine Nephrology; Physician Assistant; Admitting Provider Internal Medicine; Emergency Provider Emergency Medicine; PCP Internal Medicine; Visit Provider Internal Medicine
DX: E87.5 Hyperkalemia (principal); N18.6 End stage renal disease; I13.2 Hypertensive heart and chronic kidney disease with heart failure and with stage 5 chronic kidney disease, or end stage renal disease; F11.20 Opioid dependence, uncomplicated; I50.32 Chronic diastolic (congestive) heart failure; K64.9 Unspecified hemorrhoids; K59.09 Other constipation; E11.22 Type 2 diabetes mellitus with diabetic chronic kidney disease; D63.1 Anemia in chronic kidney disease; E11.40 Type 2 diabetes mellitus with diabetic neuropathy, unspecified; Z99.2 Dependence on renal dialysis; Z91.158 Patient's noncompliance with renal dialysis for other reason; Z79.82 Long term (current) use of aspirin; Z79.899 Other long term (current) drug therapy
CPT/HCPCS: 36415; 74018; 80048; 80051; 80053; 82947; 83690; 83735; 84100; 85025; 85027; 90999; 93005; 94640; 99285; J0613; J1644; J2270; J2405

== ENCOUNTER → 2023-10-16 01:39 | Outpatient (BNV) | payer OTHER, SELFPAY | PROVIDERS: Admitting Provider Internal Medicine; Emergency Provider Emergency Medicine; Visit Provider Internal Medicine | DX: R94.31 Abnormal electrocardiogram [ECG] [EKG] (principal) | CPT/HCPCS: 93010 ==

== ENCOUNTER → 2023-10-16 05:19 | Outpatient (BNV) | payer OTHER, SELFPAY | PROVIDERS: Admitting Provider Internal Medicine; Emergency Provider Emergency Medicine; Visit Provider Internal Medicine | DX: I12.0 Hypertensive chronic kidney disease with stage 5 chronic kidney disease or end stage renal disease (principal); E87.5 Hyperkalemia; N18.6 End stage renal disease; Z99.2 Dependence on renal dialysis | CPT/HCPCS: 99223; 99239; 99499 ==

== ENCOUNTER 2023-10-19 11:39 | Outpatient (REF) | payer OTHER, SELFPAY ==
[2023-10-19 14:09] LABS: Alanine Aminotransferase 18 U/L (0-31); Albumin Level 4.2 g/dL (3.5-5.0); Alkaline Phosphatase 217 U/L (39-117); Anion Gap 24 (12-20); Aspartate Amino Transferase 25 U/L (5-31); Bilirubin Total 0.3 mg/dL (0.0-1.0); Blood Urea Nitrogen 42 mg/dL (9-16); Calcium 10.3 mg/dL (8.4-10.2); Carbon Dioxide 29 mmol/L (22-29); Chloride 91 mmol/L (96-108); Glucose Random 85 mg/dL (60-115); Potassium 5.8 mmol/L (3.3-5.1); Sodium 138 mmol/L (135-145); Total Protein 8.2 g/dL (6.5-8.0)
[2023-10-19 14:24] LABS: Estimated Glomerular Filt Rate 6
== END 2023-10-19 11:40 | disposition home or self-care (01) ==
LOC: HO.HHCL 11:39
PROVIDERS: Visit Provider Internal Medicine
DX: E87.5 Hyperkalemia (principal)
CPT/HCPCS: 36415; 80053

== ENCOUNTER 2023-10-19 23:53 | Emergency (ER) | payer OTHER, SELFPAY ==
[2023-10-20 00:09] VITALS: BP 165/69; PULSE 78; RESP 16; TEMP 37; O2SAT 98
--- NOTE | 2023-10-20 00:10 | MHC.EDTECH ---
Patient came in by ambulance,changed into hospital attire,vitals taken and placed pt on the panel monitor,warm blanket given and call cruz in reach.
[2023-10-20 00:14] VITALS: BP 200/92; PULSE 92; O2SAT 98
[2023-10-20 00:17] VITALS: BP 165/69; PULSE 78; RESP 16; TEMP 37; O2SAT 98; BMI 42.9
--- NOTE | 2023-10-20 00:28 | ED.GENADULT ---
HPI - General Adult General Chief complaint: General Medical Stated complaint: HTN Time Seen by Provider: 10/19/23 23:59 Source: patient Mode of arrival: EMS Limitations: language barrier History of Present Illness ED Provider: Dr. Fuentes Mello HPI narrative: 68-year-old female with a history of hypertension, end-stage renal disease, hyperkalemia who presents emergency department for evaluation of elevated blood pressure and elevated potassium. The patient states that she had blood drawn today and was contacted and told that her potassium was high therefore she came to the emergency department for evaluation. Patient was seen on 10/16/2023 for right flank pain constipation. The patient was hospitalized from 10/16/2023 until 10/17/2023 for acute hyperkalemia with a potassium of 7.3. She was initially treated with the medications and then dialyzed. Related Data Home Medications ?Medication ?Instructions ?Recorded ?Confirmed buprenorphine 8 mg-naloxone 2 mg 1 film sublingual BID 10/22/20 10/16/23 sublingual film (Suboxone) melatonin 5 mg tablet 5 mg PO BEDTIME PRN Sleep 04/15/21 10/16/23 pantoprazole 40 mg tablet,delayed 40 mg PO DAILY@0630 04/15/21 10/16/23 release aspirin 81 mg tablet,delayed 1 tab PO DAILY 10/11/21 10/16/23 release albuterol sulfate 90 mcg/actuation 2 puff inhalation Q4H PRN wheezing 01/31/22 10/16/23 aerosol inhaler (Ventolin HFA) ondansetron 4 mg disintegrating 4 mg PO BID PRN nausea and vomiting 03/09/22 10/16/23 tablet carvedilol 6.25 mg tablet 1 tab PO BID 04/24/22 10/16/23 albuterol sulfate 2.5 mg/3 mL 1 amp inhalation TID PRN Shortness 05/08/22 10/16/23 (0.083 %) solution for nebulization Of Breath isosorbide dinitrate 30 mg tablet 30 mg PO TID 07/10/22 10/16/23 calcium acetate(phosphat bind) 667 1,334 mg PO TIDWM 03/13/23 10/16/23 mg capsule clonidine HCl 0.1 mg tablet 0.1 mg PO BID 03/13/23 10/16/23 lactulose 10 gram/15 mL oral 20 g PO DAILY constipation 03/13/23 10/16/23 solution mirtazapine 15 mg tablet 15 mg PO BEDTIME 03/13/23 10/16/23 acetaminophen 500 mg tablet 500 mg PO TID PRN Pain 10/16/23 10/16/23 diclofenac sodium 1 % topical gel 2 g topical BID PRN Pain 10/16/23 10/16/23 docusate sodium 100 mg capsule 100 mg PO BID 10/16/23 10/16/23 (Colace) fluticasone propionate 110 1 puff inhalation BID 10/16/23 10/16/23 mcg/actuation HFA aerosol inhaler hydrocortisone 2.5 % topical cream 1 appl VT BID PRN Pain 10/16/23 10/16/23 with perineal applicator nicotine 14 mg/24 hr daily 1 patch topical DAILY 10/16/23 10/16/23 transdermal patch polyethylene glycol 3350 17 17 g PO DAILY 10/16/23 10/16/23 gram/dose oral powder Previous Rx's ?Medication ?Instructions ?Recorded diphenhydramine HCl 25 mg capsule 25 mg PO DAILY PRN allergy 04/30/22 (Benadryl) symptoms #30 caps lidocaine 5 % topical ointment 1 appl topical BEDTIME PRN pain 01/07/23 #30 grams psyllium seed (sugar) oral powder 1 tbsp PO DAILY #1,254 grams 09/26/23 (Metamucil (sugar) oral powder) amlodipine 5 mg tablet 10 mg (2 x 5 mg) PO DAILY #90 tabs 10/17/23 Allergies Allergy/AdvReac Type Severity Reaction Status Date / Time No Known Allergies Allergy Mild NOT Verified 10/20/23 00:22 APPLICABLE Review of Systems Review of Systems: Yes all other systems are reviewed and are negative PMFSH Past Medical History Medical History Hemorrhoids with complication ESRD on dialysis Delirium Sepsis Tachycardia Leukocytosis Fever End stage chronic kidney disease Congestive heart failure with left ventricular dysfunction ESRD (end stage renal disease) Hypertension Pulmonary congestion COVID-19 virus infection Asthma with COPD with exacerbation COVID ESRD (end stage renal disease) Hypertrophic cardiomyopathy Acute exacerbation of chronic obstructive pulmonary disease (COPD) Heart failure with preserved ejection fraction Constipation End stage renal disease on dialysis Ascites Anasarca Ischemic colitis Acute GI bleeding Anemia Dialysis patient, noncompliant Anemia in chronic kidney disease Opioid withdrawal Essential hypertension Diabetes mellitus Surgical History No pertinent past surgical history Family History Family History Other Hypertension Social History Social History Household Members: None Housing: Apartment Do you presently have visiting nurse or other home services: Yes Unable to assess alcohol history related to: Unknown Alcohol intake: never Comment: pt refuses high fall risk protocol Patient Tobacco Use Status: Never used Tobacco Tobacco use type: Cigarette Cigarettes Per Day: 2 Years Smoked: 50 +/- Smoked in Last 30 Days: No e-Cigarette/Vaping Use: Former Use Second Hand Smoke Exposure: No Use of substances other than those prescribed or required for medical reasons: No Substance Use Type: Marijuana Advance Directives: Yes Advance Directives on File: Yes Advance Directives Date on File: 04/17/22 service: No Current occupational status: disabled Physical Exam ED Vital Signs: Vital Signs - 24 hr 10/20/23 00:09 10/20/23 00:17 10/20/23 02:12 Temperature 98.6 F 98.6 F 98.4 F Pulse Rate 78 78 77 Respiratory Rate 16 16 20 Blood Pressure 165/69 H 165/69 H 154/64 H Pulse Oximetry 98 98 98 Oxygen Delivery Method Room Air Room Air Room Air BMI result Body Mass Index 42.9 Vital signs revealed an elevated blood pressure of 165/69 otherwise unremarkable. Exam: General: Awake, alert in no distress Head: Normocephalic, atraumatic EENT: PERRL, Lids normal, sclera normal, conjunctiva normal, nose normal , ears normal, throat without erythema or exudates Neck: Supple, no adenopathy Lung: breath sounds symmetric, no wheezing, rales or rhonchi Chest: symmetric movement, nontender, right-sided chest wall dialysis catheter Heart: regular rate and rhythm, normal S1, S2 no murmurs or rubs Abdomen: soft, non-tender, nondistended, normal bowel sounds Back: no vertebral tenderness, no CVAT Extremities: no deformities, moves all extremities symmetrically Neuro: Awake, alert, oriented, normal speech, cranial nerves intact, moves all extremities symmetrically Psych: Pleasant, cooperative Medical Decision Making Medical Decision Making [facility] Narrative: 68-year-old female with a history of hypertension, end-stage renal disease, hyperkalemia who presents emergency department for evaluation of elevated blood pressure and elevated potassium , she was contact by your PCP after having outpatient labs yesterday. Labs from 10/19/2023 at 11:40 hours revealed a potassium of 5.8 Patient was recently admitted from 10/16/2023 until 10/17/2023 for hyperkalemia. Vital signs revealed an elevated blood pressure otherwise were unremarkable. Physical examination was unremarkable. Differential diagnosis: ?Includes but is not limited to hyperkalemia, other electrolyte abnormalities, noncompliance with low-potassium diet Following evaluation was ordered: CBC, CMP Patient was initially treated with the following: Lokelma 10 mg orally Course: 02:15 My interpretation patient's laboratory evaluation is as follows: Normocytic anemia with an H&H of 10.2 in 30.5. Elevated BUN and creatinine of 55 and 7.85-this is chronic. Patient's potassium was elevated at 5.4 however this was decreased compared to 5.8 which was done yesterday. Patient's 12 EKG was unremarkable. Patient was given Lokelma 10 mg orally. Patient was discharged home and advised to keep her dialysis appointment for tomorrow. Admission/Observation Consideration of admission/observation: Escalation of care including admission/observation considered Lab Data [facility] Lab Attestation statement: I reviewed the patient's lab results. 10/20/23 01:16 10/20/23 01:30 Labs: Lab Results 10/20/23 10/20/23 Range/Units 01:16 01:30 WBC 7.3 (4.8-10.8) X10*3/uL RBC 3.12 L (4.20-5.50) X10*6/uL Hgb 10.2 L (12.0-16.0) g/dl Hct 30.5 L (37.0-47.0) % MCV 97.8 (80.0-98.0) fL MCH 32.7 (27.0-33.0) pg MCHC 33.4 (31.0-35.0) g/dl RDW 14.2 (11.0-16.0) % Plt Count 169 (160-400) X10*3/uL MPV 10.9 (9.4-12.3) fL Immature Gran % (Auto) 0.3 (0.0-0.4) % Neut % (Auto) 66.1 (45-73) % Lymph % (Auto) 19.8 L (20-40) % [place] % (Auto) 8.5 (2-11) % Eos % (Auto) 4.9 H (0-4) % Baso % (Auto) 0.4 (0-2) % Lymph # (Auto) 1.4 (1.2-4.9) X10*3/uL [place] # (Auto) 0.6 (0.1-1.2) X10*3/uL Eos # (Auto) 0.4 (0.0-0.4) X10*3/uL Baso # (Auto) 0.0 (0.0-0.2) X10*3/uL Abs Immat Gran (auto) 0.02 (0.00-0.03) X10*3/uL Absolute Neuts (auto) 4.8 (2.0-8.3) x10*3/uL Absolute Nucleated RBC 0.000 (0.0-0.012) X10*3/uL Nucleated RBC % (auto) 0.0 (0.0-0.2) /100WBC Hold Purple Top SEE NOTE Sodium 136 (135-145) mmol/L Potassium 5.4 H (3.3-5.1) mmol/L Chloride 93 L (96-108) mmol/L Carbon Dioxide 28 (22-29) mmol/L Anion Gap 20 (12-20) BUN 55 H (9-16) mg/dL Creatinine 7.85 H* (0.5-1.4) mg/dL Estim Creat Clear Calc 9.4 Estimated GFR 5 Random Glucose 210 H (60-115) mg/dL Calcium 9.4 D (8.4-10.2) mg/dL Total Bilirubin 0.3 (0.0-1.0) mg/dL AST 16 (5-31) U/L ALT 14 (0-31) U/L Alkaline Phosphatase 227 H (39-117) U/L Total Protein 7.5 (6.5-8.0) g/dL Albumin 3.9 (3.5-5.0) g/dL Independent Interpretation I performed an independent interpretation of an: EKG Interpretation: My independent interpretation patient's 12 EKG done at 01:52 hours is as follows: Normal sinus rhythm rate of 68, normal VT interval, QRS duration QTC interval, no ST segment elevation, no ST segment depression, no significant T-wave abnormalities, no PACs, no PVCs External Record Review External record reviewed: Inpatient record Chronic Conditions Patient?s care impacted by: Other (End-stage renal disease on dialysis) Discharge Plan Discharge Clinical Impression: Acute hyperkalemia Patient Disposition: Home, Self-Care Additional Instructions: Your potassium today was 5.4. A normal potassium is between 3.3 and 5.1. You received Lokelma 10 mg orally, this should bring your potassium down. It is important that you get dialyzed tomorrow and this will also correct your high potassium, do not miss your scheduled dialysis appointment.\ Follow-up with your doctor in 2 days. Please return to the emergency department if your symptoms get worse or if you develop any symptoms that are concerning to you. Prescriptions: No Action buprenorphine-naloxone [Suboxone] 8-2 mg film 1 film sublingual BID pantoprazole 40 mg Tablet,Delayed Release (Dr/Ec) 40 mg PO DAILY@0630 melatonin 5 mg Tablet 5 mg PO BEDTIME PRN (Reason: Sleep) aspirin 81 mg tablet,delayed release (DR/EC) 1 tab PO DAILY albuterol sulfate [Ventolin HFA] 90 mcg/actuation HFA aerosol inhaler 2 puff INHALATION Q4H PRN (Reason: wheezing) ondansetron 4 mg tablet,disintegrating 4 mg PO BID PRN (Reason: nausea and vomiting) carvedilol 6.25 mg tablet 1 tab PO BID diphenhydramine HCl [Benadryl] 25 mg capsule 25 mg PO DAILY PRN (Reason: allergy symptoms) Qty: 30 0RF albuterol sulfate 2.5 mg /3 mL (0.083 %) solution for nebulization 1 amp inhalation TID PRN (Reason: Shortness Of Breath) isosorbide dinitrate 30 mg Tablet 30 mg PO TID Rx Instructions: allow nitrate-free interval of 12-14 hrs per 24-hr period lidocaine 5 % ointment 1 appl topical BEDTIME PRN (Reason: pain) Qty: 30 0RF clonidine HCl 0.1 mg tablet 0.1 mg PO BID mirtazapine 15 mg tablet 15 mg PO BEDTIME calcium acetate(phosphat bind) 667 mg capsule 1,334 mg PO TIDWM lactulose 10 gram/15 mL solution 20 g PO DAILY nicotine 14 mg/24 hr patch 24 hour 1 patch topical DAILY acetaminophen 500 mg tablet 500 mg PO TID PRN (Reason: Pain) hydrocortisone 2.5 % cream with perineal applicator 1 appl VT BID PRN (Reason: Pain) polyethylene glycol 3350 17 gram/dose powder 17 g PO DAILY diclofenac sodium 1 % gel 2 g topical BID PRN (Reason: Pain) docusate sodium [Colace] 100 mg capsule 100 mg PO BID fluticasone propionate 110 mcg/actuation HFA aerosol inhaler 1 puff INHALATION BID amlodipine 5 mg tablet 10 mg PO DAILY Qty: 90 0RF Metamucil (sugar) Powder 1 tbsp PO DAILY Qty: 1254 0RF Print Language: Vietnamese
[2023-10-20 01:20] LABS: MANUAL DIFF FLAG NO
[2023-10-20 01:21] LABS: Basophils Percent Auto 0.4 % (0-2); Eosinophils Absolute Auto 0.4 X10*3/uL (0.0-0.4); Eosinophils Percent Auto 4.9 % (0-4); Hematocrit 30.5 % (37.0-47.0); Hemoglobin 10.2 g/dl (12.0-16.0); Imm Gran Abs Auto 0.02 X10*3/uL (0.00-0.03); Imm Gran Pct Auto 0.3 % (0.0-0.4); Lymphocytes Absolute Auto 1.4 X10*3/uL (1.2-4.9); Lymphocytes Percent Auto 19.8 % (20-40); Mean Corpuscular HGB Conc 33.4 g/dl (31.0-35.0); Mean Corpuscular Hemoglobin 32.7 pg (27.0-33.0); Mean Corpuscular Volume 97.8 fL (80.0-98.0); Mean Platelet Volume 10.9 fL (9.4-12.3); Monocytes Absolute Auto 0.6 X10*3/uL (0.1-1.2); Monocytes Percent Auto 8.5 % (2-11); Neutrophils Absolute Auto 4.8 x10*3/uL (2.0-8.3); Neutrophils Percent Auto 66.1 % (45-73); Platelet Count 169 X10*3/uL (160-400); Red Blood Count 3.12 X10*6/uL (4.20-5.50); Red Cell Distribution Width 14.2 % (11.0-16.0); White Blood Count 7.3 X10*3/uL (4.8-10.8)
--- NOTE | 2023-10-20 01:40 | ECG_ITS ---
Test Reason : HYPERKALEMIA Blood Pressure : / mmHG Vent. Rate : 068 BPM Atrial Rate : 068 BPM P-R Int : 184 ms QRS Dur : 086 ms QT Int : 440 ms P-R-T Axes : 061 -15 009 degrees QTc Int : 467 ms Normal sinus rhythm Possible Left atrial enlargement Left ventricular hypertrophy ( R in aVL , Jona product ) Abnormal ECG When compared with ECG of 16-OCT-2023 01:46, No significant change was found Referred By: Fuentes Mello Electronically Signed By:SALVADOR SARABIA
[2023-10-20 01:58] LABS: Alanine Aminotransferase 14 U/L (0-31); Albumin Level 3.9 g/dL (3.5-5.0); Alkaline Phosphatase 227 U/L (39-117); Anion Gap 20 (12-20); Aspartate Amino Transferase 16 U/L (5-31); Bilirubin Total 0.3 mg/dL (0.0-1.0); Blood Urea Nitrogen 55 mg/dL (9-16); Calcium 9.4 mg/dL (8.4-10.2); Carbon Dioxide 28 mmol/L (22-29); Chloride 93 mmol/L (96-108); Creatinine Clr Calc Pharmacy 9.4; Estimated Glomerular Filt Rate 5; Glucose Random 210 mg/dL (60-115); Potassium 5.4 mmol/L (3.3-5.1); Sodium 136 mmol/L (135-145); Total Protein 7.5 g/dL (6.5-8.0)
--- NOTE | 2023-10-20 02:00 | MHC.EDTECH ---
EKG taken per order and signed by provider
[2023-10-20 02:12] VITALS: BP 154/64; PULSE 77; RESP 20; TEMP 36.9; O2SAT 98
[2023-10-20] MEDS: Sodium Zirconium Cyclosilicate 10 GM POWD.PACK PO (02:38)
[2023-10-20 05:32] VITALS: BP 187/83; PULSE 63; RESP 16; TEMP 36.8; O2SAT 96
--- NOTE | 2023-10-20 08:03 | PC.NURSE ---
Patient alert and oriented, called TEACHERS' AIDE who stated on his way to pick her up, declined vitals stating she needs to get changed to go home
[2023-10-20 09:42] VITALS: BP 187/83; PULSE 63; RESP 18; TEMP 36.8; O2SAT 96
== END 2023-10-20 09:43 | disposition home or self-care (01) ==
PROVIDERS: Emergency Provider Emergency Medicine Emergency Medical Services
DX: E87.5 Hyperkalemia (principal); E11.22 Type 2 diabetes mellitus with diabetic chronic kidney disease; I13.2 Hypertensive heart and chronic kidney disease with heart failure and with stage 5 chronic kidney disease, or end stage renal disease; I50.9 Heart failure, unspecified; N18.6 End stage renal disease; Z99.2 Dependence on renal dialysis; F11.20 Opioid dependence, uncomplicated
CPT/HCPCS: 36415; 80053; 85025; 93005; 99284

== ENCOUNTER → 2023-10-20 01:40 | Outpatient (BNV) | payer OTHER, SELFPAY | PROVIDERS: Emergency Provider Emergency Medicine Emergency Medical Services; Visit Provider Internal Medicine | DX: R94.31 Abnormal electrocardiogram [ECG] [EKG] (principal) | CPT/HCPCS: 93010 ==

== ENCOUNTER 2023-10-29 19:14 | Emergency (ER) | payer OTHER, SELFPAY ==
--- NOTE | ~2023-10-29 | XR_ITS ---
EXAMINATION: XR CHEST CLINICAL INFORMATION: Hypertension. Rule out CHF. COMPARISON: Previous chest x-ray most recent March 2023 TECHNIQUE: Frontal view of the chest was obtained. FINDINGS: Right jugular permacath projects over cavoatrial junction. Slightly enlarged cardiac silhouette similar to previous exam. Hilar and mediastinal contours are unremarkable. The lungs are clear. No pleural effusion or pneumothorax. XR/XR chest 1V IMPRESSION: No evidence of CHF. Stable slight enlargement of the cardiac silhouette.
--- NOTE | 2023-10-29 19:25 | ECG_ITS ---
Test Reason : HTN Blood Pressure : / mmHG Vent. Rate : 072 BPM Atrial Rate : 072 BPM P-R Int : 182 ms QRS Dur : 086 ms QT Int : 408 ms P-R-T Axes : 057 -21 034 degrees QTc Int : 446 ms Normal sinus rhythm Possible Left atrial enlargement Left ventricular hypertrophy ( R in aVL , Jona product ) Abnormal ECG When compared with ECG of 20-OCT-2023 01:52, No significant change was found Referred By: Cristian Vega Electronically Signed By:SALVADOR SARABIA
[2023-10-29 19:26] VITALS: BP 215/113; PULSE 75; O2SAT 99
[2023-10-29 19:27] VITALS: BMI 29.1
[2023-10-29 19:29] VITALS: BP 217/101; PULSE 75; RESP 16; TEMP 37.7; O2SAT 96
--- NOTE | 2023-10-29 19:34 | MHC.EDTECH ---
pt arrived via ems, pt was changed over and placed on security monitor and vitals were taken. Bp is elevated at 217/101. RN is aware and MD at bedside, ekg taken per order and signed by provider.
--- NOTE | 2023-10-29 19:41 | ED_ITS ---
HPI - Abdominal Pain General Chief Complaint: Abdominal Pain Stated Complaint: Prolonged hypertension, headache for 2-3 wks Time Seen by Provider: 10/29/23 19:22 History of Present Illness HPI narrative: 68 years old, past medical history of end-stage renal disease on dialysis,y room for headache, elevated blood pressure with systolic above 200 and abdominal pain. Patient reports that her blood pressure is always high and that she was told today to presents to the emergency room because she may have a ?attack? if blood pressure was not controlled. Patient reports that she is being chronically constipated however she had a large bowel movement today and since then patient reports that her ?bump ?hurts. On my arrival patient is not in distress, blood pressure is 210 over 110. Patient reports that the headache that she says is chronic and has not changed in fishers, she denies blurry vision, slurred speech, unilateral weakness. Patient denies chest pain or shortness of breath. No recent trauma. Patient is supposed to go to dialysis tomorrow. Related Data Home Medications ?Medication ?Instructions ?Recorded ?Confirmed buprenorphine 8 mg-naloxone 2 mg 1 film sublingual BID 10/22/20 10/16/23 sublingual film (Suboxone) melatonin 5 mg tablet 5 mg PO BEDTIME PRN Sleep 04/15/21 10/16/23 pantoprazole 40 mg tablet,delayed 40 mg PO DAILY@0630 04/15/21 10/16/23 release aspirin 81 mg tablet,delayed 1 tab PO DAILY 10/11/21 10/16/23 release albuterol sulfate 90 mcg/actuation 2 puff inhalation Q4H PRN wheezing 01/31/22 10/16/23 aerosol inhaler (Ventolin HFA) ondansetron 4 mg disintegrating 4 mg PO BID PRN nausea and vomiting 03/09/22 10/16/23 tablet carvedilol 6.25 mg tablet 1 tab PO BID 04/24/22 10/16/23 albuterol sulfate 2.5 mg/3 mL 1 amp inhalation TID PRN Shortness 05/08/22 10/16/23 (0.083 %) solution for nebulization Of Breath isosorbide dinitrate 30 mg tablet 30 mg PO TID 07/10/22 10/16/23 calcium acetate(phosphat bind) 667 1,334 mg PO TIDWM 03/13/23 10/16/23 mg capsule clonidine HCl 0.1 mg tablet 0.1 mg PO BID 03/13/23 10/16/23 lactulose 10 gram/15 mL oral 20 g PO DAILY constipation 03/13/23 10/16/23 solution mirtazapine 15 mg tablet 15 mg PO BEDTIME 03/13/23 10/16/23 acetaminophen 500 mg tablet 500 mg PO TID PRN Pain 10/16/23 10/16/23 diclofenac sodium 1 % topical gel 2 g topical BID PRN Pain 10/16/23 10/16/23 docusate sodium 100 mg capsule 100 mg PO BID 10/16/23 10/16/23 (Colace) fluticasone propionate 110 1 puff inhalation BID 10/16/23 10/16/23 mcg/actuation HFA aerosol inhaler hydrocortisone 2.5 % topical cream 1 appl SD BID PRN Pain 10/16/23 10/16/23 with perineal applicator nicotine 14 mg/24 hr daily 1 patch topical DAILY 10/16/23 10/16/23 transdermal patch polyethylene glycol 3350 17 17 g PO DAILY 10/16/23 10/16/23 gram/dose oral powder Previous Rx's ?Medication ?Instructions ?Recorded diphenhydramine HCl 25 mg capsule 25 mg PO DAILY PRN allergy 04/30/22 (Benadryl) symptoms #30 caps lidocaine 5 % topical ointment 1 appl topical BEDTIME PRN pain 01/07/23 #30 grams psyllium seed (sugar) oral powder 1 tbsp PO DAILY #1,254 grams 09/26/23 (Metamucil (sugar) oral powder) amlodipine 5 mg tablet 10 mg (2 x 5 mg) PO DAILY #90 tabs 10/17/23 Allergies Allergy/AdvReac Type Severity Reaction Status Date / Time No Known Allergies Allergy Verified 10/29/23 19:32 Review of Systems Review of Systems Yes all other systems are reviewed and are negative PMFSH Past Medical History Medical History Hemorrhoids with complication ESRD on dialysis Delirium Sepsis Tachycardia Leukocytosis Fever End stage chronic kidney disease Congestive heart failure with left ventricular dysfunction ESRD (end stage renal disease) Hypertension Pulmonary congestion COVID-19 virus infection Asthma with COPD with exacerbation COVID ESRD (end stage renal disease) Hypertrophic cardiomyopathy Acute exacerbation of chronic obstructive pulmonary disease (COPD) Heart failure with preserved ejection fraction Constipation End stage renal disease on dialysis Ascites Anasarca Ischemic colitis Acute GI bleeding Anemia Dialysis patient, noncompliant Anemia in chronic kidney disease Opioid withdrawal Essential hypertension Diabetes mellitus Surgical History No pertinent past surgical history Family History Family History Other Hypertension Social History Social History Household Members: None Housing: Apartment Do you presently have visiting nurse or other home services: Yes Unable to assess alcohol history related to: Unknown Alcohol intake: never Comment: pt refuses high fall risk protocol Patient Tobacco Use Status: Never used Tobacco Tobacco use type: Cigarette Cigarettes Per Day: 2 Years Smoked: 50 +/- Smoked in Last 30 Days: No e-Cigarette/Vaping Use: Former Use Second Hand Smoke Exposure: No Substance Use Type: Marijuana Advance Directives: Yes Advance Directives on File: Yes Advance Directives Date on File: 04/17/22 Do you have a plan to hurt others: No Plan service: No Current occupational status: disabled Physical Exam ED Vital Signs: Vital Signs - 24 hr 10/29/23 19:29 10/29/23 20:45 Temperature 99.9 F Pulse Rate 75 Respiratory Rate 16 Blood Pressure 217/101 H 207/88 H Pulse Oximetry 96 Oxygen Delivery Method Room Air BMI result Body Mass Index 29.1 General: Alert, Not in Distress Skin: No rash, warm HEENT: Atraumatic, No Exudate or Pharyngeal Erythema Resp: Normal Breath sounds bilaterally Cardio: Regular rate and Rhythm, Normal S1, S2 ABD: diffusely tender, no guarding or rebound. Normal Bowel sounds. : No cva tenderness Neuro: Alert, oriented x4, PERRL Strenght 5/5 on all extremities Sensation is preserved in both lower and upper extremities Index to nose: normal Cranial Nerves II-XII grossly intact No dysarthria, or aphasia No neglet. Visual ford are normal bilaterally Psych: Cooperative, NO SI Course Reevaluation(s) Reevaluation #1: Pending BMP, patient does not have any signs of acute end-organ damage. She would like to go home. If BMP is fine and patient feels as per baseline I think it is reasonable to discharge home. Will sign out to Dr. Freeman pending BMP and re eval Time: 20:50 Medical Decision Making Medical Decision Making [facility] Narrative: Presents emergency room for uncontrolled hypertension. Patient's systolic blood pressure is above 200 with diastolic of 110. , however at this time patient does not have any signs of end-organ damage. Patient was recently stopped on losartan due to hyperkalemia and started on amlodipine 10 mg which at this time does not appear to control her blood pressure. Plan CBC, BMP, chest x-ray, EKG Lab Data [facility] Lab Attestation statement: I reviewed the patient's lab results. 10/29/23 20:00 10/29/23 20:00 Labs: Lab Results 10/29/23 10/29/23 Range/Units 20:00 20:04 WBC 7.3 (4.8-10.8) X10*3/uL RBC 3.60 L (4.20-5.50) X10*6/uL Hgb 11.6 L (12.0-16.0) g/dl Hct 34.9 L (37.0-47.0) % MCV 96.9 (80.0-98.0) fL MCH 32.2 (27.0-33.0) pg MCHC 33.2 (31.0-35.0) g/dl RDW 14.2 (11.0-16.0) % Plt Count 186 (160-400) X10*3/uL MPV 10.1 (9.4-12.3) fL Immature Gran % (Auto) 0.3 (0.0-0.4) % Neut % (Auto) 65.4 (45-73) % Lymph % (Auto) 21.0 (20-40) % [place] % (Auto) 6.7 (2-11) % Eos % (Auto) 6.3 H (0-4) % Baso % (Auto) 0.3 (0-2) % Lymph # (Auto) 1.5 (1.2-4.9) X10*3/uL [place] # (Auto) 0.5 (0.1-1.2) X10*3/uL Eos # (Auto) 0.5 H (0.0-0.4) X10*3/uL Baso # (Auto) 0.0 (0.0-0.2) X10*3/uL Abs Immat Gran (auto) 0.02 (0.00-0.03) X10*3/uL Absolute Neuts (auto) 4.8 (2.0-8.3) x10*3/uL Absolute Nucleated RBC 0.000 (0.0-0.012) X10*3/uL Nucleated RBC % (auto) 0.0 (0.0-0.2) /100WBC VBG pH 7.37 (7.32-7.43) VBG pCO2 55 mmHg VBG pO2 46 mmHg VBG HCO3 32 H (22-26) mmol/L VBG O2 Saturation 68.0 % VBG Base Excess 5.7 mmol/L Independent Interpretation I performed an independent interpretation of an: EKG (I personally reviewed and interpreted the patient's EKG that shows a sinus rhythm with signs of LVH.) External Record Review External record reviewed: Inpatient record Discharge Plan Discharge Clinical Impression: Hypertension Patient Disposition: Still a Patient Additional Instructions: You were seen in the emergency room for elevated blood pressure. Your blood work and physical exam did not show any acute changes that requires hospitalization please follow-up with your felt hooker and attend your dialysis scheduled tomorrow Return to the emergency room if you experience shortness of breath, worsening headache. Prescriptions: No Action buprenorphine-naloxone [Suboxone] 8-2 mg film 1 film sublingual BID pantoprazole 40 mg Tablet,Delayed Release (Dr/Ec) 40 mg PO DAILY@0630 melatonin 5 mg Tablet 5 mg PO BEDTIME PRN (Reason: Sleep) aspirin 81 mg tablet,delayed release (DR/EC) 1 tab PO DAILY albuterol sulfate [Ventolin HFA] 90 mcg/actuation HFA aerosol inhaler 2 puff INHALATION Q4H PRN (Reason: wheezing) ondansetron 4 mg tablet,disintegrating 4 mg PO BID PRN (Reason: nausea and vomiting) carvedilol 6.25 mg tablet 1 tab PO BID diphenhydramine HCl [Benadryl] 25 mg capsule 25 mg PO DAILY PRN (Reason: allergy symptoms) Qty: 30 0RF albuterol sulfate 2.5 mg /3 mL (0.083 %) solution for nebulization 1 amp inhalation TID PRN (Reason: Shortness Of Breath) isosorbide dinitrate 30 mg Tablet 30 mg PO TID Rx Instructions: allow nitrate-free interval of 12-14 hrs per 24-hr period lidocaine 5 % ointment 1 appl topical BEDTIME PRN (Reason: pain) Qty: 30 0RF clonidine HCl 0.1 mg tablet 0.1 mg PO BID mirtazapine 15 mg tablet 15 mg PO BEDTIME calcium acetate(phosphat bind) 667 mg capsule 1,334 mg PO TIDWM lactulose 10 gram/15 mL solution 20 g PO DAILY nicotine 14 mg/24 hr patch 24 hour 1 patch topical DAILY acetaminophen 500 mg tablet 500 mg PO TID PRN (Reason: Pain) hydrocortisone 2.5 % cream with perineal applicator 1 appl SD BID PRN (Reason: Pain) polyethylene glycol 3350 17 gram/dose powder 17 g PO DAILY diclofenac sodium 1 % gel 2 g topical BID PRN (Reason: Pain) docusate sodium [Colace] 100 mg capsule 100 mg PO BID fluticasone propionate 110 mcg/actuation HFA aerosol inhaler 1 puff INHALATION BID amlodipine 5 mg tablet 10 mg PO DAILY Qty: 90 0RF Metamucil (sugar) Powder 1 tbsp PO DAILY Qty: 1254 0RF Print Language: [place]
[2023-10-29 20:05] LABS: MANUAL DIFF FLAG NO
[2023-10-29 20:08] LABS: Basophils Percent Auto 0.3 % (0-2); Eosinophils Absolute Auto 0.5 X10*3/uL (0.0-0.4); Eosinophils Percent Auto 6.3 % (0-4); Hematocrit 34.9 % (37.0-47.0); Hemoglobin 11.6 g/dl (12.0-16.0); Imm Gran Abs Auto 0.02 X10*3/uL (0.00-0.03); Imm Gran Pct Auto 0.3 % (0.0-0.4); Lymphocytes Absolute Auto 1.5 X10*3/uL (1.2-4.9); Mean Corpuscular HGB Conc 33.2 g/dl (31.0-35.0); Mean Corpuscular Hemoglobin 32.2 pg (27.0-33.0); Mean Corpuscular Volume 96.9 fL (80.0-98.0); Mean Platelet Volume 10.1 fL (9.4-12.3); Monocytes Absolute Auto 0.5 X10*3/uL (0.1-1.2); Monocytes Percent Auto 6.7 % (2-11); Neutrophils Absolute Auto 4.8 x10*3/uL (2.0-8.3); Neutrophils Percent Auto 65.4 % (45-73); Platelet Count 186 X10*3/uL (160-400); Red Cell Distribution Width 14.2 % (11.0-16.0); White Blood Count 7.3 X10*3/uL (4.8-10.8)
[2023-10-29 20:11] LABS: VBG Base Excess 5.7 mmol/L; VBG HCO3 32 mmol/L (22-26); VBG pCO2 55 mmHg; VBG pH 7.37 (7.32-7.43); VBG pO2 46 mmHg
[2023-10-29 20:11] LABS: Venous Blood Gas Refer to POC result
[2023-10-29 20:45] VITALS: BP 207/88
[2023-10-29 20:54] VITALS: BP 192/78; PULSE 69
[2023-10-29] MEDS: Labetalol HCL 100 MG/20 ML VIAL 10 MG IVPUSH (20:54)
[2023-10-29] MEDS: ondansetron HCL 4 MG/2 ML VIAL IVPUSH (20:54)
[2023-10-29 21:09] LABS: Anion Gap 28 (12-20); Blood Urea Nitrogen 66 mg/dL (9-16); Calcium 9.6 mg/dL (8.4-10.2); Carbon Dioxide 25 mmol/L (22-29); Chloride 91 mmol/L (96-108); Creatinine Clr Calc Pharmacy 5.1; Estimated Glomerular Filt Rate 4; Glucose Random 91 mg/dL (60-115); Potassium 6.4 mmol/L (3.3-5.1); Sodium 138 mmol/L (135-145)
--- NOTE | 2023-10-29 21:31 | PC.NURSE ---
pt removed tele leads and bp cuff, sts it is uncomfortable and she does not want to leave them on. educated on medical necessity, agreeable to bp cuff and pulse ox at this time.
[2023-10-29 22:17] VITALS: BP 173/93; PULSE 64; RESP 17; TEMP 36.6; O2SAT 100
--- NOTE | 2023-10-29 22:17 | MHC.EDTECH ---
Called Dr. Medina' office regarding a consult and left message with answering service for the doctor cash person to call back. The doctor on-call is Dr. Lange.
[2023-10-29] MEDS: Calcium Gluconate/NaCl,Iso-Osm 2 GM/100 ML PLAST..BAG IV (22:43)
[2023-10-29] MEDS: Dextrose 10 % 250 ML 750 ML IV (22:46)
[2023-10-29] MEDS: Sodium Zirconium Cyclosilicate 10 GM POWD.PACK PO (22:47)
[2023-10-29] MEDS: Insulin Regular, Human 100 UNIT/ML 10 ML VIAL IVPUSH (22:47)
[2023-10-29 23:19] VITALS: BP 197/89; PULSE 72; RESP 18; TEMP 36.4; O2SAT 99
--- NOTE | 2023-10-29 23:21 | MHC.EDTECH ---
Hourly rounds and vitals completed,bp is elevated 197/89 RN aware
[2023-10-29 23:53] LABS: Anion Gap 25 (12-20); Blood Urea Nitrogen 67 mg/dL (9-16); Calcium 9.6 mg/dL (8.4-10.2); Carbon Dioxide 24 mmol/L (22-29); Chloride 95 mmol/L (96-108); Estimated Glomerular Filt Rate 4; Glucose Random 73 mg/dL (60-115); Potassium 5.1 mmol/L (3.3-5.1); Sodium 139 mmol/L (135-145)
[2023-10-30 00:19] VITALS: BP 197/89; PULSE 72; RESP 18; TEMP 36.4; O2SAT 99
== END 2023-10-30 00:21 | disposition home or self-care (01) ==
PROVIDERS: Student in an Organized Health Care Education/Training Program; Emergency Provider Student in an Organized Health Care Education/Training Program
DX: I12.0 Hypertensive chronic kidney disease with stage 5 chronic kidney disease or end stage renal disease (principal); E11.22 Type 2 diabetes mellitus with diabetic chronic kidney disease; N18.6 End stage renal disease; E87.5 Hyperkalemia; J44.9 Chronic obstructive pulmonary disease, unspecified; Z99.2 Dependence on renal dialysis
CPT/HCPCS: 36415; 71045; 80048; 82803; 85025; 93005; 96365; 96375; 99284; 99285; J0613; J1920; J2405

== ENCOUNTER → 2023-10-29 19:25 | Outpatient (BNV) | payer OTHER, SELFPAY | PROVIDERS: Emergency Provider Student in an Organized Health Care Education/Training Program; Visit Provider Internal Medicine | DX: R94.31 Abnormal electrocardiogram [ECG] [EKG] (principal) | CPT/HCPCS: 93010 ==

== ENCOUNTER 2023-11-07 07:12 | Emergency (ER) | payer OTHER, SELFPAY ==
--- NOTE | ~2023-11-07 | XR_ITS ---
EXAMINATION: XR CHEST CLINICAL INFORMATION: Dyspnea COMPARISON: 10/29/2023 TECHNIQUE: Frontal view of the chest was obtained. FINDINGS: The tip of the right IJ tunneled dialysis catheter overlies region of junction of the superior vena cava with right atrium. Lungs are well expanded and clear. Cardiac silhouette is normal in size. Pulmonary vascular pattern is normal. No acute osseous abnormality. XR/XR chest 1V IMPRESSION: No acute cardiopulmonary disease. There is no evidence of pulmonary edema or pleural effusion.
[2023-11-07 07:16] VITALS: BP 197/118; PULSE 81; O2SAT 100
--- NOTE | 2023-11-07 07:16 | ED_ITS ---
HPI - Nausea/Vomiting/Diarrhea General Chief complaint: Nausea/Vomiting/Diarrhea Stated complaint: NAUSEA,DIARRHEA,BACK PAIN,SOB 100% RA, SINCE 6AM Source: patient, EMS, old records reviewed and [employer] Mode of arrival: EMS Limitations: no limitations History of Present Illness ED Provider: DANA HPI Narrative: 68 yo female with PMH of ESRD on HD TuThS, HTN, anemia, HTN, reactive airway disease here with c/o 1. chronic R lower back pain 2. K was high before HD yesterday wants it rechecked so she is not anxious 3. resolved wheezing this AM after she took nebs. No fevers, chest pain, edema, completed HD yesterday. No change in back pain from baseline - no b/b incontinence no saddle anesthesia and she took all of her meds this AM and had a BM. 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 elicited complaint: other (back pain, K recheck, wheezing) Pertinent past history: other Onset (ago): day(s) (woke up this AM) Associated nausea: No Associated abdominal pain: No Location of pain: other (chronic R low back pain) Pain consistency: constant Severity: moderate Quality: aching Exacerbating factors: movement Relieving factors: none Context: other (chronic back pain) Associated symptoms: shortness of breath and other (anxiety about her K) Related Data Home Medications ?Medication ?Instructions ?Recorded ?Confirmed buprenorphine 8 mg-naloxone 2 mg 1 film sublingual BID 10/22/20 10/16/23 sublingual film (Suboxone) melatonin 5 mg tablet 5 mg PO BEDTIME PRN Sleep 04/15/21 10/16/23 pantoprazole 40 mg tablet,delayed 40 mg PO DAILY@0630 04/15/21 10/16/23 release aspirin 81 mg tablet,delayed 1 tab PO DAILY 10/11/21 10/16/23 release albuterol sulfate 90 mcg/actuation 2 puff inhalation Q4H PRN wheezing 01/31/22 10/16/23 aerosol inhaler (Ventolin HFA) ondansetron 4 mg disintegrating 4 mg PO BID PRN nausea and vomiting 03/09/22 10/16/23 tablet carvedilol 6.25 mg tablet 1 tab PO BID 04/24/22 10/16/23 albuterol sulfate 2.5 mg/3 mL 1 amp inhalation TID PRN Shortness 05/08/22 10/16/23 (0.083 %) solution for nebulization Of Breath isosorbide dinitrate 30 mg tablet 30 mg PO TID 07/10/22 10/16/23 calcium acetate(phosphat bind) 667 1,334 mg PO TIDWM 03/13/23 10/16/23 mg capsule clonidine HCl 0.1 mg tablet 0.1 mg PO BID 03/13/23 10/16/23 lactulose 10 gram/15 mL oral 20 g PO DAILY constipation 03/13/23 10/16/23 solution mirtazapine 15 mg tablet 15 mg PO BEDTIME 03/13/23 10/16/23 acetaminophen 500 mg tablet 500 mg PO TID PRN Pain 10/16/23 10/16/23 diclofenac sodium 1 % topical gel 2 g topical BID PRN Pain 10/16/23 10/16/23 docusate sodium 100 mg capsule 100 mg PO BID 10/16/23 10/16/23 (Colace) fluticasone propionate 110 1 puff inhalation BID 10/16/23 10/16/23 mcg/actuation HFA aerosol inhaler hydrocortisone 2.5 % topical cream 1 appl [place] BID PRN Pain 10/16/23 10/16/23 with perineal applicator nicotine 14 mg/24 hr daily 1 patch topical DAILY 10/16/23 10/16/23 transdermal patch polyethylene glycol 3350 17 17 g PO DAILY 10/16/23 10/16/23 gram/dose oral powder Previous Rx's ?Medication ?Instructions ?Recorded diphenhydramine HCl 25 mg capsule 25 mg PO DAILY PRN allergy 04/30/22 (Benadryl) symptoms #30 caps lidocaine 5 % topical ointment 1 appl topical BEDTIME PRN pain 01/07/23 #30 grams psyllium seed (sugar) oral powder 1 tbsp PO DAILY #1,254 grams 09/26/23 (Metamucil (sugar) oral powder) amlodipine 5 mg tablet 10 mg (2 x 5 mg) PO DAILY #90 tabs 10/17/23 Allergies Allergy/AdvReac Type Severity Reaction Status Date / Time No Known Allergies Allergy Verified 11/07/23 07:30 Review of Systems 2 Gastrointestinal: Gastrointestinal: Denies nausea PMFSH Past Medical History Attestation statement: The following information was validated with the patient. Source: old records reviewed Medical History Hemorrhoids with complication ESRD on dialysis Delirium Sepsis Tachycardia Leukocytosis Fever End stage chronic kidney disease Congestive heart failure with left ventricular dysfunction ESRD (end stage renal disease) Hypertension Pulmonary congestion COVID-19 virus infection Asthma with COPD with exacerbation COVID ESRD (end stage renal disease) Hypertrophic cardiomyopathy Acute exacerbation of chronic obstructive pulmonary disease (COPD) Heart failure with preserved ejection fraction Constipation End stage renal disease on dialysis Ascites Anasarca Ischemic colitis Acute GI bleeding Anemia Dialysis patient, noncompliant Anemia in chronic kidney disease Opioid withdrawal Essential hypertension Diabetes mellitus Surgical History No pertinent past surgical history Family History Family History Other Hypertension Social History Social History Household Members: None Housing: Apartment Do you presently have visiting nurse or other home services: Yes Unable to assess alcohol history related to: Unknown Alcohol intake: current Alcohol intake frequency: does not drink Comment: pt refuses high fall risk protocol Patient Tobacco Use Status: Never used Tobacco Tobacco use type: Cigarette Cigarettes Per Day: 2 Years Smoked: 50 +/- Smoked in Last 30 Days: Yes e-Cigarette/Vaping Use: Former Use Second Hand Smoke Exposure: No Use of substances other than those prescribed or required for medical reasons: No Substance Use Type: Marijuana Last Used Substance: Unknown Advance Directives: Yes Advance Directives on File: Yes Advance Directives Date on File: 04/17/22 Do you have a plan to hurt others: No Plan service: No Current occupational status: disabled Physical Exam 2 Vital Signs: Vital Signs: Last Vital Signs Temp 98.5 F 11/07/23 08:00 Pulse 75 11/07/23 08:00 Resp 14 11/07/23 08:00 BP 172/82 H 11/07/23 08:00 Pulse Ox 98 11/07/23 08:00 O2 Del Method Room Air 11/07/23 08:00 BMI result Body Mass Index 29.3 Appearance: Alert. Oriented X3. No acute distress. Eyes: Pupils equal, round and reactive to light. ENT: Pharynx normal. Neck: Normal inspection. Neck supple. CVS: Normal heart rate and rhythm. Pulses normal. Respiratory: No respiratory distress. Breath sounds normal. Abdomen: Soft and nontender. Back: R lower lumbar ttp no CVA ttp Skin: Skin warm and dry. Normal skin color. Normal skin turgor. Extremities: No lower extremity edema. No calf ttp Neuro: Oriented X 3. No motor deficit. No sensory deficit. Medications Administered Discontinued Medications Generic Name Dose Route Start Last Admin Trade Name Goyo PRN Reason Stop Dose Admin Oxycodone HCl 10 mg 11/07/23 07:29 11/07/23 07:33 Oxycodone Hcl Immed Release 5 Mg Tablet PO 11/07/23 07:30 10 mg ONCE ONE Administration Medical Decision Making Medical Decision Making [facility] Narrative: 68 yo female with PMH of ESRD on HD TuThS, HTN, anemia, HTN, reactive airway disease here with c/o chronic R low back pain but no b/b incontinence no saddle anesthesia no change from chronic R low back pain no new injury. She also has resolved wheezing that she self treated at home denies chest pain or infectious symptoms. Also c/o K elevated prior to HD and wants it rechecked. At this time labs, EKG, CXR, PO pain control no cauda equina symptoms her BP is high but she states she took all of her medications this AM may need adjunct. Differential Diagnosis Differential Diagnoses: The differential diagnosis associated with the presentation includes chronic back pain hyper K reactive airway disease Admission/Observation Consideration of admission/observation: Escalation of care including admission/observation considered negative CXR, K 4.4 feels much better stable for DC laughing and joking on the phone trop at baseline Lab Data [facility] Lab Attestation statement: I reviewed the patient's lab results. 11/07/23 08:04 11/07/23 08:04 Labs: Lab Results 11/07/23 11/07/23 Range/Units 08:04 08:05 WBC 6.4 (4.8-10.8) X10*3/uL RBC 3.40 L (4.20-5.50) X10*6/uL Hgb 11.0 L (12.0-16.0) g/dl Hct 33.1 L (37.0-47.0) % MCV 97.4 (80.0-98.0) fL MCH 32.4 (27.0-33.0) pg MCHC 33.2 (31.0-35.0) g/dl RDW 13.9 (11.0-16.0) % Plt Count 206 (160-400) X10*3/uL MPV 10.4 (9.4-12.3) fL Immature Gran % (Auto) 0.5 H (0.0-0.4) % Neut % (Auto) 73.3 H (45-73) % Lymph % (Auto) 14.1 L (20-40) % [place] % (Auto) 6.9 (2-11) % Eos % (Auto) 4.9 H (0-4) % Baso % (Auto) 0.3 (0-2) % Lymph # (Auto) 0.9 L (1.2-4.9) X10*3/uL [place] # (Auto) 0.4 (0.1-1.2) X10*3/uL Eos # (Auto) 0.3 (0.0-0.4) X10*3/uL Baso # (Auto) 0.0 (0.0-0.2) X10*3/uL Abs Immat Gran (auto) 0.03 (0.00-0.03) X10*3/uL Absolute Neuts (auto) 4.7 (2.0-8.3) x10*3/uL Absolute Nucleated RBC 0.000 (0.0-0.012) X10*3/uL Nucleated RBC % (auto) 0.0 (0.0-0.2) /100WBC Sodium 141 (135-145) mmol/L Potassium 4.4 (3.3-5.1) mmol/L Chloride 96 (96-108) mmol/L Carbon Dioxide 30 H (22-29) mmol/L Anion Gap 19 (12-20) BUN 38 H (9-16) mg/dL Creatinine 7.55 H* (0.5-1.4) mg/dL Estim Creat Clear Calc 6.5 Estimated GFR 5 Random Glucose 135 H (60-115) mg/dL Calcium 8.2 L D (8.4-10.2) mg/dL Total Bilirubin 0.3 (0.0-1.0) mg/dL Direct Bilirubin 0.1 (0.0-0.5) mg/dL AST 21 (5-31) U/L ALT 15 (0-31) U/L Alkaline Phosphatase 193 H (39-117) U/L Troponin I High Sens 25.3 H (<3.5-17.0) ng/L Total Protein 7.4 (6.5-8.0) g/dL Albumin 3.8 (3.5-5.0) g/dL Lipase 16 (8-78) U/L Independent Interpretation I performed an independent interpretation of an: EKG and Plain X-Ray (normal ) Interpretation: Rate: 74 Rhythm: NSR [place]: left, LVH Normal P waves. Normal FRIEDA. Normal QRS complex. ST T wave : no MELLISA, inverted t waves V1-V2, nonspecific ST T wave changes inf leads qTC: 475 prior studies: no acute ischemia The study has been interpreted contemporaneously by me. . Radiology Impression Discussion of test interpretation with radiology: I have reviewed the radiologist's reading. Independent Historian Clinical information obtained from an independent historian. History obtained from or confirmed by: EMS External Record Review External record reviewed: Inpatient record Discharge Plan Discharge Clinical Impression: Chronic back pain Patient Disposition: Home, Self-Care Instructions: Back Pain (ED) Additional Instructions: potassium 4.4 chest xray normal return for any worsening symptoms or concerns take your medications as prescribed follow up with your doctor Prescriptions: No Action buprenorphine-naloxone [Suboxone] 8-2 mg film 1 film sublingual BID pantoprazole 40 mg Tablet,Delayed Release (Dr/Ec) 40 mg PO DAILY@0630 melatonin 5 mg Tablet 5 mg PO BEDTIME PRN (Reason: Sleep) aspirin 81 mg tablet,delayed release (DR/EC) 1 tab PO DAILY albuterol sulfate [Ventolin HFA] 90 mcg/actuation HFA aerosol inhaler 2 puff INHALATION Q4H PRN (Reason: wheezing) ondansetron 4 mg tablet,disintegrating 4 mg PO BID PRN (Reason: nausea and vomiting) carvedilol 6.25 mg tablet 1 tab PO BID diphenhydramine HCl [Benadryl] 25 mg capsule 25 mg PO DAILY PRN (Reason: allergy symptoms) Qty: 30 0RF albuterol sulfate 2.5 mg /3 mL (0.083 %) solution for nebulization 1 amp inhalation TID PRN (Reason: Shortness Of Breath) isosorbide dinitrate 30 mg Tablet 30 mg PO TID Rx Instructions: allow nitrate-free interval of 12-14 hrs per 24-hr period lidocaine 5 % ointment 1 appl topical BEDTIME PRN (Reason: pain) Qty: 30 0RF clonidine HCl 0.1 mg tablet 0.1 mg PO BID mirtazapine 15 mg tablet 15 mg PO BEDTIME calcium acetate(phosphat bind) 667 mg capsule 1,334 mg PO TIDWM lactulose 10 gram/15 mL solution 20 g PO DAILY nicotine 14 mg/24 hr patch 24 hour 1 patch topical DAILY acetaminophen 500 mg tablet 500 mg PO TID PRN (Reason: Pain) hydrocortisone 2.5 % cream with perineal applicator 1 appl [place] BID PRN (Reason: Pain) polyethylene glycol 3350 17 gram/dose powder 17 g PO DAILY diclofenac sodium 1 % gel 2 g topical BID PRN (Reason: Pain) docusate sodium [Colace] 100 mg capsule 100 mg PO BID fluticasone propionate 110 mcg/actuation HFA aerosol inhaler 1 puff INHALATION BID amlodipine 5 mg tablet 10 mg PO DAILY Qty: 90 0RF Metamucil (sugar) Powder 1 tbsp PO DAILY Qty: 1254 0RF Print Language: Greenlandic
[2023-11-07 07:18] VITALS: BP 215/114; PULSE 85; RESP 13; TEMP 37; O2SAT 98; BMI 29.3
--- NOTE | 2023-11-07 07:30 | ECG_ITS ---
Test Reason : DYSPNEA Blood Pressure : / mmHG Vent. Rate : 074 BPM Atrial Rate : 074 BPM P-R Int : 176 ms QRS Dur : 092 ms QT Int : 428 ms P-R-T Axes : 050 -20 036 degrees QTc Int : 475 ms Normal sinus rhythm Possible Left atrial enlargement Left ventricular hypertrophy ( R in aVL , [place] product ) Abnormal ECG When compared with ECG of 29-OCT-2023 19:37, No significant change was found Referred By: Bushra Vallejo Electronically Signed By:Charan Hankins
[2023-11-07] MEDS: oxyCODONE HCl Immed Release 5 MG TABLET 10 MG PO (07:33)
[2023-11-07 08:00] VITALS: BP 172/82; PULSE 75; RESP 14; TEMP 36.9; O2SAT 98
[2023-11-07 08:09] LABS: MANUAL DIFF FLAG NO
[2023-11-07 08:10] LABS: Basophils Percent Auto 0.3 % (0-2); Eosinophils Absolute Auto 0.3 X10*3/uL (0.0-0.4); Eosinophils Percent Auto 4.9 % (0-4); Hematocrit 33.1 % (37.0-47.0); Imm Gran Abs Auto 0.03 X10*3/uL (0.00-0.03); Imm Gran Pct Auto 0.5 % (0.0-0.4); Lymphocytes Absolute Auto 0.9 X10*3/uL (1.2-4.9); Lymphocytes Percent Auto 14.1 % (20-40); Mean Corpuscular HGB Conc 33.2 g/dl (31.0-35.0); Mean Corpuscular Hemoglobin 32.4 pg (27.0-33.0); Mean Corpuscular Volume 97.4 fL (80.0-98.0); Mean Platelet Volume 10.4 fL (9.4-12.3); Monocytes Absolute Auto 0.4 X10*3/uL (0.1-1.2); Monocytes Percent Auto 6.9 % (2-11); Neutrophils Absolute Auto 4.7 x10*3/uL (2.0-8.3); Neutrophils Percent Auto 73.3 % (45-73); Platelet Count 206 X10*3/uL (160-400); Red Cell Distribution Width 13.9 % (11.0-16.0); White Blood Count 6.4 X10*3/uL (4.8-10.8)
[2023-11-07 08:25] LABS: Alanine Aminotransferase 15 U/L (0-31); Albumin Level 3.8 g/dL (3.5-5.0); Alkaline Phosphatase 193 U/L (39-117); Anion Gap 19 (12-20); Aspartate Amino Transferase 21 U/L (5-31); Bilirubin Direct 0.1 mg/dL (0.0-0.5); Bilirubin Total 0.3 mg/dL (0.0-1.0); Blood Urea Nitrogen 38 mg/dL (9-16); Calcium 8.2 mg/dL (8.4-10.2); Carbon Dioxide 30 mmol/L (22-29); Chloride 96 mmol/L (96-108); Glucose Random 135 mg/dL (60-115); Lipase 16 U/L (8-78); Potassium 4.4 mmol/L (3.3-5.1); Sodium 141 mmol/L (135-145); Total Protein 7.4 g/dL (6.5-8.0)
[2023-11-07 08:31] LABS: Troponin-I High Sensitivity 25.3 ng/L (<3.5-17.0)
[2023-11-07 08:34] LABS: Creatinine Clr Calc Pharmacy 6.5; Estimated Glomerular Filt Rate 5
--- NOTE | 2023-11-07 10:10 | PC.NURSE ---
Multiple attempts to reach [employer] to pick patient up unsuccessful, message left for [employer] to return call to ED
[2023-11-07 10:20] VITALS: BP 172/82; PULSE 76; RESP 18; TEMP 36.8; O2SAT 98
== END 2023-11-07 10:20 | disposition home or self-care (01) ==
PROVIDERS: Emergency Provider Emergency Medicine
DX: M54.50 Low back pain, unspecified (principal); R06.02 Shortness of breath; R94.31 Abnormal electrocardiogram [ECG] [EKG]; R11.2 Nausea with vomiting, unspecified; F41.1 Generalized anxiety disorder; Z79.899 Other long term (current) drug therapy
CPT/HCPCS: 36415; 71045; 80048; 80076; 83690; 84484; 85025; 93005; 99283; 99285

== ENCOUNTER → 2023-11-07 07:30 | Outpatient (BNV) | payer OTHER, SELFPAY | PROVIDERS: Emergency Provider Emergency Medicine; Visit Provider Internal Medicine Cardiovascular Disease | DX: R94.31 Abnormal electrocardiogram [ECG] [EKG] (principal) | CPT/HCPCS: 93010 ==

== ENCOUNTER → 2023-11-07 14:15 | Outpatient (BNV) | payer OTHER, SELFPAY | PROVIDERS: PCP Internal Medicine; Visit Provider Radiology Diagnostic Radiology | DX: Z12.31 Encounter for screening mammogram for malignant neoplasm of breast (principal) | CPT/HCPCS: 77063; 77067 ==

== ENCOUNTER 2023-11-07 14:24 | Outpatient (REF) | payer OTHER, SELFPAY ==
--- NOTE | ~2023-11-07 | MM_ITS ---
EXAMINATION: MM SCREENING DIGITAL BREAST TOMOSYNTHESIS, BILATERAL CLINICAL INFORMATION: Screening. Asymptomatic. COMPARISON: Mammography: This study is compared with prior exams dating back to 2019. TECHNIQUE: Digital breast tomosynthesis is performed in both the craniocaudal and mediolateral oblique views along with computer-aided detection (CAD). Synthesized 2D images are generated from the tomosynthesis. FINDINGS: There are scattered areas of fibroglandular density (ACR BI-RADS breast composition Category b). There are no significant masses, abnormal calcifications, or other abnormalities. There is a double-lumen central venous catheter in the overlying the right breast. This somewhat limits compression of the right breast in the CC and MLO projections. MM/MM tomosynthesis screening BI IMPRESSION: No mammographic evidence of malignancy. ASSESSMENT: BI-RADS BI-RADS 1 - Negative RECOMMENDATION: Routine annual mammography screening. 1 year F/U This examination should not preclude the clinical evaluation of a suspicious palpable abnormality. This patient's information was entered into a reminder system with a target due date for their next mammogram.
== END 2023-11-07 14:25 | disposition home or self-care (01) ==
LOC: HO.MAMMO 14:24
PROVIDERS: PCP Internal Medicine; Visit Provider Internal Medicine
DX: Z12.31 Encounter for screening mammogram for malignant neoplasm of breast (principal)
CPT/HCPCS: 77063; 77067

== ENCOUNTER 2023-11-15 08:48 | Outpatient (AMB) | payer OTHER, SELFPAY ==
--- NOTE | 2023-11-15 08:49 | MHC.OFFVIS ---
Vital Signs 11/15/23 08:50 Height 5 ft 1 in Weight 155 lb BMI 29.3 Intake Visit Reasons: New Pt - Severe Bilateral Knee OA Intake Note: is a 68 year old female who presents today as a new patient with complaints of bilateral knee pain. Multiple medical problems: DM, CHF, Renal artery aneurysm,HTN, Hyperkalemia. Patient has had ongoing bilateral knee pain for quite some time now, right is worse than left. She has been seen in 2017, she has severe bilateral knee OA but is not a surgical candidate. Hx of injections in 2016. Patient reports that she is having significant pain in both of her knees, she takes tylenol for her pain which only gives her mild releif. She also complains of bilateral lower back pain. Allergies No Known Allergies Allergy (Verified 11/07/23 07:30) HPI HPI New Pt - Severe Bilateral Knee OA: Details: is a 68 year old female who presents today as a new patient with complaints of bilateral knee pain. Multiple medical problems: DM, CHF, Renal artery aneurysm,HTN, Hyperkalemia. Patient has had ongoing bilateral knee pain for quite some time now, right is worse than left. She has been seen in 2017, she has severe bilateral knee OA but is not a surgical candidate. Hx of injections in 2016. Patient reports that she is having significant pain in both of her knees, she takes tylenol for her pain which only gives her mild releif. She also complains of bilateral lower back pain. [facility] Medical History Hemorrhoids with complication ESRD on dialysis Delirium Sepsis Tachycardia Leukocytosis Fever End stage chronic kidney disease Congestive heart failure with left ventricular dysfunction ESRD (end stage renal disease) Hypertension Pulmonary congestion COVID-19 virus infection Asthma with COPD with exacerbation COVID ESRD (end stage renal disease) Hypertrophic cardiomyopathy Acute exacerbation of chronic obstructive pulmonary disease (COPD) Heart failure with preserved ejection fraction Constipation End stage renal disease on dialysis Ascites Anasarca Ischemic colitis Acute GI bleeding Anemia Dialysis patient, noncompliant Anemia in chronic kidney disease Opioid withdrawal Essential hypertension Diabetes mellitus Surgical History No pertinent past surgical history Family History Other Hypertension Social History Household Members: None Housing: Apartment Do you presently have visiting nurse or other home services: Yes Unable to assess alcohol history related to: Unknown Alcohol intake: current Alcohol intake frequency: does not drink Comment: pt refuses high fall risk protocol Patient Tobacco Use Status: Never used Tobacco Tobacco use type: Cigarette Cigarettes Per Day: 2 Years Smoked: 50 +/- e-Cigarette/Vaping Use: Former Use Second Hand Smoke Exposure: No Substance Use Type: Marijuana Advance Directives Date on File: 04/17/22 service: No Current occupational status: disabled Physical Exam Vital Signs: BMI result Body Mass Index 29.3 Extrem Other: 10-120 ROM bilateral kenes TTP medial joint line bilaterally Office Procedures Joint Injection/Drain Joint Injection/Drain Details: Injected 1 mL of Decadron and 3 mL 1% lidocaine and 3 mL of 0.25% Marcaine. Site was prepped using aseptic technique. Patient tolerated the procedure well. Primary Site: right knee Secondary Site: left knee Approach Used: anterolateral Coding - Large joint 16697 - Glenohumeral/Tronchanteric Bursa/Intraarticular Procedure code (CPT) selection complete Results Reviewed Results Reviewed: Severe bilateral knee OA Assessment & Plan Assessment & Plan (1) Primary localized osteoarthritis of knees, bilateral: Code(s): M17.0 - Bilateral primary osteoarthritis of knee Category: Medical Plan: This is a 68-year-old woman with severe bilateral knee OA. She has not a surgical candidate. She has multiple medical conditions and is on Suboxone. We elected to proceed forward with bilateral knee injections. She may follow up in no sooner than 3 months for repeat injections should she so desire. Coding Level of Care Code New Pt Level 3 (71027) Diagnoses Primary localized osteoarthritis of knees, bilateral M17.0 CPT Codes Coding - Large joint: 28958 - Large joint ([id number]) Coding - Joint 7: 51170 - Glenohumeral/Tronchanteric Bursa/Intraarticular ([id number])
[2023-11-15 08:50] VITALS: BMI 29.3
== END 2023-11-15 09:33 | disposition home or self-care (01) ==
LOC: HO.HOS 08:48
PROVIDERS: Visit Provider Orthopaedic Surgery
DX: M17.0 Bilateral primary osteoarthritis of knee (principal)
CPT/HCPCS: 20610; 99203

== ENCOUNTER → 2023-11-15 08:48 | Outpatient (BNVA) | payer OTHER, SELFPAY | PROVIDERS: Visit Provider Orthopaedic Surgery | DX: M17.0 Bilateral primary osteoarthritis of knee (principal) | CPT/HCPCS: 20610; 99202; J0665; J1100 ==

== ENCOUNTER 2023-11-23 11:09 | Outpatient (REF) | payer OTHER, SELFPAY | END 2023-11-23 11:10 | disposition home or self-care (01) | LOC: HO.LNP 11:09 | PROVIDERS: Visit Provider Emergency Medicine | DX: F11.20 Opioid dependence, uncomplicated (principal) | CPT/HCPCS: 80307 ==

== ENCOUNTER 2023-12-05 16:40 | Outpatient (REF) | payer OTHER, SELFPAY ==
[2023-12-11 10:33] LABS: HPV mRNA E6/E7 Not Detected (Not Detected)
== END 2023-12-05 16:41 | disposition home or self-care (01) ==
LOC: HO.LNP 16:40
PROVIDERS: Visit Provider Advanced Practice Midwife
DX: Z12.4 Encounter for screening for malignant neoplasm of cervix (principal)
CPT/HCPCS: 87624; 88175

== ENCOUNTER 2023-12-09 11:36 | Emergency (ER) | payer OTHER, SELFPAY ==
--- NOTE | ~2023-12-09 | XR_ITS ---
EXAMINATION: XR CHEST CLINICAL INFORMATION: Shortness of breath COMPARISON: 11/07/2023 TECHNIQUE: Frontal view of the chest was obtained. FINDINGS: Lungs are well expanded and clear. No pneumothorax or pleural effusion. The tip of the right IJ catheter is at level of junction of the superior vena cava with right atrium. Cardiac silhouette has normal size and contour. There is atherosclerotic calcification of the aortic arch. The visualized bones are intact. XR/XR chest 1V IMPRESSION: No acute pulmonary disease compared to 11/07/2023.
--- NOTE | ~2023-12-09 | CT_ITS ---
EXAMINATION: CT ABDOMEN AND PELVIS WITHOUT CONTRAST CLINICAL INFORMATION: Abdominal pain, on dialysis. COMPARISON: CT abdomen/pelvis 09/30/2023. TECHNIQUE: Multidetector volumetric imaging was performed from the superior aspect of the liver through the pubic symphysis. Sagittal and coronal reformatted images were obtained on the technologist workstation. This CT examination was performed using dose optimization techniques as appropriate, variously including the following: *Automated exposure control *Adjustment of mA and/or kV according to patient size (this includes techniques or standardized protocols for targeted exams where dose is matched to indication/reason for exam; i.e. extremities or head) *Use of iterative reconstruction technique DLP: 443 mGy-cm FINDINGS: The lack of intravenous contrast limits evaluation of the solid visceral organs including the liver, spleen, pancreas, and kidneys. LUNG BASES: No focal consolidation or pleural effusion. LIVER, GALLBLADDER, AND BILIARY TREE: The liver is normal in size, shape, and attenuation. No focal hepatic lesion or biliary ductal dilatation is present. Cholecystectomy. PANCREAS: Redemonstration of diffuse atrophy. No main duct dilatation. No peripancreatic fat stranding or free fluid. SPLEEN: Unremarkable. ADRENAL GLANDS: Unremarkable. KIDNEYS AND URETERS: Bilateral cortical thinning in keeping with known chronic renal disease. No nephrolithiasis or hydronephrosis. No significant perinephric fat stranding. Simple appearing cyst in the upper left kidney measuring 4.5 cm in diameter, for which no imaging follow-up is recommended. BLADDER: Decompressed limiting evaluation. GASTROINTESTINAL TRACT: Diffuse gaseous distention of the small and large bowel with moderate degree of colonic stool burden. Normal appendix. No pericolonic fat stranding or free fluid. No mesenteric fat stranding. No evidence of volvulus. ABDOMINAL WALL: Anterior abdominal rectus diastases. No significant hernia. LYMPH NODES: Unchanged simple fluid attenuating nodule in the right retrocrural space dating back to 08/30/2022 measuring 1.6 x 1.1 cm (4:110). Unchanged single peritoneal calcification in the anterior lower abdomen (3:53) dating back to 08/30/2022. VASCULAR: Severe atherosclerotic disease. Normal caliber of the abdominal aorta. 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 PELVIC VISCERA: Unremarkable. OSSEOUS STRUCTURES: No acute or aggressive appearing osseous findings. Unchanged superior endplate deformity at L3 and L5. Stable inferior endplate deformity at L4. Stable anterolisthesis at L4-L5. Multilevel degenerative changes of the spine. CT/CT abdomen pelvis wo IV con IMPRESSION: Diffuse gaseous distention of the small and large bowel with moderate degree of colonic stool burden suggesting ileus and constipation in the appropriate clinical context.
[2023-12-09 11:47] VITALS: BP 180/70; BP 203/88; PULSE 92; PULSE 93; RESP 18; TEMP 37; O2SAT 91; O2SAT 97; BMI 24.9
--- NOTE | 2023-12-09 11:54 | ED_ITS ---
HPI - Nausea/Vomiting/Diarrhea General Chief complaint: Abdominal Pain Stated complaint: ABD PAIN VOMITING Time Seen by Provider: 12/09/23 11:45 Source: patient and EMS Mode of arrival: EMS Limitations: no limitations History of Present Illness HPI Narrative: This is a 68 years old patient with history of end-stage renal disease on chronic dialysis (dialyzed yesterday last) presented to the emergency department complaining of nausea and vomiting also complaining of right flank pain. She does have history of chronic right lower back pain. She denies any fever chills MD elicited complaint: nausea and vomiting Onset (ago): day(s) (2) Associated nausea: Yes Associated abdominal pain: Yes Location of pain: none Exacerbating factors: none Relieving factors: none Related Data Home Medications ?Medication ?Instructions ?Recorded ?Confirmed buprenorphine 8 mg-naloxone 2 mg 1 film sublingual BID 10/22/20 10/16/23 sublingual film (Suboxone) melatonin 5 mg tablet 5 mg PO BEDTIME PRN Sleep 04/15/21 10/16/23 pantoprazole 40 mg tablet,delayed 40 mg PO DAILY@0630 04/15/21 10/16/23 release aspirin 81 mg tablet,delayed 1 tab PO DAILY 10/11/21 10/16/23 release albuterol sulfate 90 mcg/actuation 2 puff inhalation Q4H PRN wheezing 01/31/22 10/16/23 aerosol inhaler (Ventolin HFA) ondansetron 4 mg disintegrating 4 mg PO BID PRN nausea and vomiting 03/09/22 10/16/23 tablet carvedilol 6.25 mg tablet 1 tab PO BID 04/24/22 10/16/23 albuterol sulfate 2.5 mg/3 mL 1 amp inhalation TID PRN Shortness 05/08/22 10/16/23 (0.083 %) solution for nebulization Of Breath isosorbide dinitrate 30 mg tablet 30 mg PO TID 07/10/22 10/16/23 calcium acetate(phosphat bind) 667 1,334 mg PO TIDWM 03/13/23 10/16/23 mg capsule clonidine HCl 0.1 mg tablet 0.1 mg PO BID 03/13/23 10/16/23 lactulose 10 gram/15 mL oral 20 g PO DAILY constipation 03/13/23 10/16/23 solution mirtazapine 15 mg tablet 15 mg PO BEDTIME 03/13/23 10/16/23 acetaminophen 500 mg tablet 500 mg PO TID PRN Pain 10/16/23 10/16/23 diclofenac sodium 1 % topical gel 2 g topical BID PRN Pain 10/16/23 10/16/23 docusate sodium 100 mg capsule 100 mg PO BID 10/16/23 10/16/23 (Colace) fluticasone propionate 110 1 puff inhalation BID 10/16/23 10/16/23 mcg/actuation HFA aerosol inhaler hydrocortisone 2.5 % topical cream 1 appl DC BID PRN Pain 10/16/23 10/16/23 with perineal applicator nicotine 14 mg/24 hr daily 1 patch topical DAILY 10/16/23 10/16/23 transdermal patch polyethylene glycol 3350 17 17 g PO DAILY 10/16/23 10/16/23 gram/dose oral powder Previous Rx's ?Medication ?Instructions ?Recorded diphenhydramine HCl 25 mg capsule 25 mg PO DAILY PRN allergy 04/30/22 (Benadryl) symptoms #30 caps lidocaine 5 % topical ointment 1 appl topical BEDTIME PRN pain 01/07/23 #30 grams psyllium seed (sugar) oral powder 1 tbsp PO DAILY #1,254 grams 09/26/23 (Metamucil (sugar) oral powder) amlodipine 5 mg tablet 10 mg (2 x 5 mg) PO DAILY #90 tabs 10/17/23 Allergies Allergy/AdvReac Type Severity Reaction Status Date / Time No Known Allergies Allergy Verified 12/09/23 11:49 Review of Systems 2 Cardiovascular: Cardiovascular: Reports no additional cardiovascular complaints Gastrointestinal: Gastrointestinal: Reports nausea and Reports vomiting Musculoskeletal: Musculoskeletal: Reports back pain [facility] Past Medical History Attestation statement: The following information was validated with the patient. Medical History Hemorrhoids with complication ESRD on dialysis Delirium Sepsis Tachycardia Leukocytosis Fever End stage chronic kidney disease Congestive heart failure with left ventricular dysfunction ESRD (end stage renal disease) Hypertension Pulmonary congestion COVID-19 virus infection Asthma with COPD with exacerbation COVID ESRD (end stage renal disease) Hypertrophic cardiomyopathy Acute exacerbation of chronic obstructive pulmonary disease (COPD) Heart failure with preserved ejection fraction Constipation End stage renal disease on dialysis Ascites Anasarca Ischemic colitis Acute GI bleeding Anemia Dialysis patient, noncompliant Anemia in chronic kidney disease Opioid withdrawal Essential hypertension Diabetes mellitus Surgical History No pertinent past surgical history Family History Family History Other Hypertension Social History Social History Household Members: None Housing: Apartment Do you presently have visiting nurse or other home services: Yes Unable to assess alcohol history related to: Unknown Alcohol intake: current Alcohol intake frequency: does not drink Comment: pt refuses high fall risk protocol Patient Tobacco Use Status: Never used Tobacco Tobacco use type: Cigarette Cigarettes Per Day: 2 Years Smoked: 50 +/- Smoked in Last 30 Days: Yes e-Cigarette/Vaping Use: Former Use Second Hand Smoke Exposure: No Use of substances other than those prescribed or required for medical reasons: No Substance Use Type: Marijuana Advance Directives: Yes Advance Directives on File: Yes Advance Directives Date on File: 04/17/22 Do you have a plan to hurt others: No Plan service: No Current occupational status: disabled Physical Exam 2 Vital Signs: Vital Signs: Last Vital Signs Temp 97.4 F 12/09/23 15:59 Pulse 84 12/09/23 15:59 Resp 16 12/09/23 15:59 BP 203/102 H 12/09/23 15:59 Pulse Ox 94 12/09/23 15:59 O2 Del Method Room Air 12/09/23 15:59 Oxygen Flow Rate 2 12/09/23 11:47 BMI result Body Mass Index 24.9 Const: General: cooperative Nutritional Appearance: average body habitus Orientation/consciousness: patient oriented x3 HEENT: Head: Yes normal to inspection General nose exam: Normal external nose present Face and sinus: Yes normal facial exam Neck: Neck: Yes normal visual inspection Chest: Chest palpation & inspection: normal inspection of the chest Resp: Effort & Inspection: normal respiratory effort Auscultation: clear to auscultation bilaterally Cardio: Jugular venous distension: no JVD Rate: regular rate Rhythm: r egular rhythm GI: Inspection: Yes normal to inspection Palpation (GI): Soft to palpation, not firm, nontender and no guarding Auscultation: normal bowel sounds Skin: General skin exam: no rashes or lesions noted Neuro: General: patient oriented x3 Course Reevaluation(s) Reevaluation #1: On re-examination she is feeling much better she is tolerating p.o. well. She has no pain at this time. WBC normal. She is now complaining of shortness of breath she is 94% on room air, chest x-ray was review interpreted by me as no acute disease. Her blood pressure is elevated by she had chronic hypertension a she is on dialysis. At this time she is requesting discharge. Time: 16:04 Medications Administered Discontinued Medications Generic Name Dose Route Start Last Admin Trade Name Goyo PRN Reason Stop Dose Admin Buprenorphine/Naloxone 1 film 12/09/23 12:19 12/09/23 12:23 Buprenorphine/Naloxone 8/2 Mg Film SUBLINGUAL 12/09/23 12:20 1 film ONCE ONE Administration Clonidine HCl 0.1 mg 12/09/23 15:45 12/09/23 15:50 Clonidine Hcl 0.1 Mg Tablet PO 12/09/23 15:46 0.1 mg ONCE ONE Administration Protocol Ondansetron HCl 4 mg 12/09/23 11:47 12/09/23 11:57 Ondansetron Hcl 4 Mg/2 Ml Vial IVPUSH 12/09/23 11:48 4 mg ONCE ONE Administration Medical Decision Making Medical Decision Making [facility] Narrative: Patient presented with generalized abdominal pain since yesterday she is in chronic dialysis dialyzed yesterday denies any fever we get labs imaging and reassessed Differential Diagnosis Differential Diagnoses: The differential diagnosis associated with the presentation includes SBO/colitis/diverticulitis/perforated bowel Admission/Observation Consideration of admission/observation: Escalation of care including admission/observation considered Lab Data [facility] Lab Attestation statement: I reviewed the patient's lab results. 12/09/23 11:54 12/09/23 11:54 Labs: Lab Results 12/09/23 Range/Units 11:54 WBC 8.8 (4.8-10.8) X10*3/uL RBC 3.98 L (4.20-5.50) X10*6/uL Hgb 12.7 (12.0-16.0) g/dl Hct 38.8 (37.0-47.0) % MCV 97.5 (80.0-98.0) fL MCH 31.9 (27.0-33.0) pg MCHC 32.7 (31.0-35.0) g/dl RDW 15.4 (11.0-16.0) % Plt Count 251 (160-400) X10*3/uL MPV 10.2 (9.4-12.3) fL Immature Gran % (Auto) 0.5 H (0.0-0.4) % Neut % (Auto) 76.7 H (45-73) % Lymph % (Auto) 13.9 L (20-40) % [place] % (Auto) 7.6 (2-11) % Eos % (Auto) 1.1 (0-4) % Baso % (Auto) 0.2 (0-2) % Lymph # (Auto) 1.2 (1.2-4.9) X10*3/uL [place] # (Auto) 0.7 (0.1-1.2) X10*3/uL Eos # (Auto) 0.1 (0.0-0.4) X10*3/uL Baso # (Auto) 0.0 (0.0-0.2) X10*3/uL Abs Immat Gran (auto) 0.04 H (0.00-0.03) X10*3/uL Absolute Neuts (auto) 6.7 (2.0-8.3) x10*3/uL Absolute Nucleated RBC 0.040 H (0.0-0.012) X10*3/uL Nucleated RBC % (auto) 0.5 H (0.0-0.2) /100WBC Sodium 137 (135-145) mmol/L Potassium 4.5 (3.3-5.1) mmol/L Chloride 91 L (96-108) mmol/L Carbon Dioxide 26 (22-29) mmol/L Anion Gap 25 H (12-20) BUN 49 H (9-16) mg/dL Creatinine 6.31 H* (0.5-1.4) mg/dL Estim Creat Clear Calc 8.0 Estimated GFR 7 Random Glucose 237 H (60-115) mg/dL Calcium 10.4 H D (8.4-10.2) mg/dL Total Bilirubin 0.3 (0.0-1.0) mg/dL AST 23 (5-31) U/L ALT 16 (0-31) U/L Alkaline Phosphatase 210 H (39-117) U/L Troponin I High Sens 37.8 H (<3.5-17.0) ng/L Total Protein 8.3 H (6.5-8.0) g/dL Albumin 4.4 (3.5-5.0) g/dL Lipase 18 (8-78) U/L Independent Interpretation I performed an independent interpretation of an: Plain X-Ray Interpretation: Chest x-ray no acute disease my reading CT scan abdomen and pelvis no SBO Radiology Impression Discussion of test interpretation with radiology: I have reviewed the radiologist's reading. Independent Historian Clinical information obtained from an independent historian. History obtained from or confirmed by: EMS External Record Review External record reviewed: Inpatient record Chronic Conditions Patient?s care impacted by: Other (Dialysis patient chronic renal failure) Discharge Plan Discharge Clinical Impression: Abdominal pain Constipation Qualifiers: Constipation type: unspecified constipation type Qualified Code(s): K59.00 - Constipation, unspecified Renal failure, chronic Qualifiers: Chronic kidney disease stage: stage 5 Qualified Code(s): N18.5 - Chronic kidney disease, stage 5 Patient Disposition: Home, Self-Care Instructions: Constipation (DC), Abdominal Pain (ED) Prescriptions: No Action buprenorphine-naloxone [Suboxone] 8-2 mg film 1 film sublingual BID pantoprazole 40 mg Tablet,Delayed Release (Dr/Ec) 40 mg PO DAILY@0630 melatonin 5 mg Tablet 5 mg PO BEDTIME PRN (Reason: Sleep) aspirin 81 mg tablet,delayed release (DR/EC) 1 tab PO DAILY albuterol sulfate [Ventolin HFA] 90 mcg/actuation HFA aerosol inhaler 2 puff INHALATION Q4H PRN (Reason: wheezing) ondansetron 4 mg tablet,disintegrating 4 mg PO BID PRN (Reason: nausea and vomiting) carvedilol 6.25 mg tablet 1 tab PO BID diphenhydramine HCl [Benadryl] 25 mg capsule 25 mg PO DAILY PRN (Reason: allergy symptoms) Qty: 30 0RF albuterol sulfate 2.5 mg /3 mL (0.083 %) solution for nebulization 1 amp inhalation TID PRN (Reason: Shortness Of Breath) isosorbide dinitrate 30 mg Tablet 30 mg PO TID Rx Instructions: allow nitrate-free interval of 12-14 hrs per 24-hr period lidocaine 5 % ointment 1 appl topical BEDTIME PRN (Reason: pain) Qty: 30 0RF clonidine HCl 0.1 mg tablet 0.1 mg PO BID mirtazapine 15 mg tablet 15 mg PO BEDTIME calcium acetate(phosphat bind) 667 mg capsule 1,334 mg PO TIDWM lactulose 10 gram/15 mL solution 20 g PO DAILY nicotine 14 mg/24 hr patch 24 hour 1 patch topical DAILY acetaminophen 500 mg tablet 500 mg PO TID PRN (Reason: Pain) hydrocortisone 2.5 % cream with perineal applicator 1 appl DC BID PRN (Reason: Pain) polyethylene glycol 3350 17 gram/dose powder 17 g PO DAILY diclofenac sodium 1 % gel 2 g topical BID PRN (Reason: Pain) docusate sodium [Colace] 100 mg capsule 100 mg PO BID fluticasone propionate 110 mcg/actuation HFA aerosol inhaler 1 puff INHALATION BID amlodipine 5 mg tablet 10 mg PO DAILY Qty: 90 0RF Metamucil (sugar) Powder 1 tbsp PO DAILY Qty: 1254 0RF Print Language: Lithuanian
[2023-12-09] MEDS: ondansetron HCL 4 MG/2 ML VIAL IVPUSH (11:57)
[2023-12-09 11:58] LABS: MANUAL DIFF FLAG NO
[2023-12-09 12:00] LABS: Basophils Percent Auto 0.2 % (0-2); Eosinophils Absolute Auto 0.1 X10*3/uL (0.0-0.4); Eosinophils Percent Auto 1.1 % (0-4); Hematocrit 38.8 % (37.0-47.0); Hemoglobin 12.7 g/dl (12.0-16.0); Imm Gran Abs Auto 0.04 X10*3/uL (0.00-0.03); Imm Gran Pct Auto 0.5 % (0.0-0.4); Lymphocytes Absolute Auto 1.2 X10*3/uL (1.2-4.9); Lymphocytes Percent Auto 13.9 % (20-40); Mean Corpuscular HGB Conc 32.7 g/dl (31.0-35.0); Mean Corpuscular Hemoglobin 31.9 pg (27.0-33.0); Mean Corpuscular Volume 97.5 fL (80.0-98.0); Mean Platelet Volume 10.2 fL (9.4-12.3); Monocytes Absolute Auto 0.7 X10*3/uL (0.1-1.2); Monocytes Percent Auto 7.6 % (2-11); NRBC Pct Auto 0.5 /100WBC (0.0-0.2); Neutrophils Absolute Auto 6.7 x10*3/uL (2.0-8.3); Neutrophils Percent Auto 76.7 % (45-73); Platelet Count 251 X10*3/uL (160-400); Red Blood Count 3.98 X10*6/uL (4.20-5.50); Red Cell Distribution Width 15.4 % (11.0-16.0); White Blood Count 8.8 X10*3/uL (4.8-10.8)
--- NOTE | 2023-12-09 12:09 | PC.NURSE ---
pt biba from home d/t generalized abd pain/n/v/sob x yesterday. upon ED arrival - pt a&ox4. vss and up to date aside from being hypertensive. nsr on the ekg monitor. no interventions en route via EMS. pt c/o 12/28 abd pain. nonradiating. not actively vomiting at this time. pt denies any issues w/ having BMs. abd distended. pt is a dialysis pt - port noted to right side of chest wall. 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 pt reports last being dialyzed yesterday - states she is compliant w/ attending appointments on sunday//saturdays. upon EMS arrival - pt noted to be at 91% on RA - denies hx of asthma/copd. states she wears 2L via NC while being dialyzed for support. pt currently on 2L via NC at this time - resting at 97%. no sob/wob noted. respirations even/unlabored. 20gIV placed in the left forearm - labs obtained/sent to lab. medication administered per provider order - effectiveness pending. pt waiting to go to CT at this time. plan of care ongoing. call cruz placed within reach.
--- NOTE | 2023-12-09 12:19 | PC.NURSE ---
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 provider notified/aware.
[2023-12-09] MEDS: Buprenorphine/Naloxone 8/2 mg FILM 1 FILM SUBLINGUAL (12:23)
--- NOTE | 2023-12-09 12:23 | PC.NURSE ---
pt medicated per provider order.
[2023-12-09 12:26] LABS: Troponin-I High Sensitivity 37.8 ng/L (<3.5-17.0)
[2023-12-09 12:38] LABS: Alanine Aminotransferase 16 U/L (0-31); Albumin Level 4.4 g/dL (3.5-5.0); Alkaline Phosphatase 210 U/L (39-117); Anion Gap 25 (12-20); Aspartate Amino Transferase 23 U/L (5-31); Bilirubin Total 0.3 mg/dL (0.0-1.0); Blood Urea Nitrogen 49 mg/dL (9-16); Calcium 10.4 mg/dL (8.4-10.2); Carbon Dioxide 26 mmol/L (22-29); Chloride 91 mmol/L (96-108); Estimated Glomerular Filt Rate 7; Glucose Random 237 mg/dL (60-115); Lipase 18 U/L (8-78); Potassium 4.5 mmol/L (3.3-5.1); Sodium 137 mmol/L (135-145); Total Protein 8.3 g/dL (6.5-8.0)
[2023-12-09 14:15] VITALS: BP 198/99; PULSE 83; RESP 16; TEMP 37.1; O2SAT 94
[2023-12-09 15:50] VITALS: BP 214/91
[2023-12-09] MEDS: cloNIDine HCL 0.1 MG TABLET PO (15:50)
--- NOTE | 2023-12-09 15:51 | PC.NURSE ---
tech notified this RN that pt remains hypertensive at this time. MD notified/aware. medication administered per provider order. effectiveness pending. xray results still pending at this time. plan of care ongoing.
[2023-12-09 15:59] VITALS: BP 203/102; PULSE 84; RESP 16; TEMP 36.3; O2SAT 94
[2023-12-09 16:15] VITALS: BP 204/90; PULSE 77; RESP 16; TEMP 36.3; O2SAT 94
[2023-12-09] MEDS: Sodium Phosphate,Mono-Dibasic 133 ML ENEMA PR (16:21)
--- NOTE | 2023-12-09 16:21 | PC.NURSE ---
pt provided w/ take home fleet enema per provider order.
[2023-12-09 16:22] VITALS: BP 204/90; PULSE 77; RESP 16; TEMP 36.3; O2SAT 94
== END 2023-12-09 16:22 | disposition home or self-care (01) ==
PROVIDERS: Emergency Provider Emergency Medicine; PCP Internal Medicine
DX: K59.00 Constipation, unspecified (principal); R11.2 Nausea with vomiting, unspecified; N18.5 Chronic kidney disease, stage 5; R10.9 Unspecified abdominal pain; R06.02 Shortness of breath; I13.2 Hypertensive heart and chronic kidney disease with heart failure and with stage 5 chronic kidney disease, or end stage renal disease; E11.22 Type 2 diabetes mellitus with diabetic chronic kidney disease; Z87.891 Personal history of nicotine dependence; Z99.2 Dependence on renal dialysis; Z79.899 Other long term (current) drug therapy
CPT/HCPCS: 36415; 71045; 74176; 80053; 83690; 84484; 85025; 96374; 99284; J2405

== ENCOUNTER 2023-12-26 13:51 | Outpatient (REF) | payer OTHER, SELFPAY ==
--- NOTE | ~2023-12-26 | MM_ITS ---
EXAMINATION: BONE DENSITOMETRY CLINICAL INDICATION: Menopause. COMPARISON: This is the patient's baseline examination. TECHNIQUE: Using a [employer] DXA System (software version: 13.1) manufactured by [employer]), dual-energy x-ray absorptiometry was performed of the lumbar spine and left hip. The images are of good technical quality. Summary results are attached. FINDINGS: LEFT FEMUR, NECK: BMD 0.690 g/cm2, Z-score -1.0, T-score -2.5, osteoporosis. LEFT FEMUR, TOTAL: BMD 0.734 g/cm2, Z-score -1.0, T-score -2.2, osteopenia. AP SPINE L1-L4: BMD 1.054 g/cm2, Z-score 0.4, T-score -1.1, osteopenia. IDENTIFIED RISK FACTORS: Menopause, family history (parent hip fracture), dementia, height loss, low calcium intake, renal, tobacco use (current smoker). HISTORY OF FRACTURE: None listed. MEDICATIONS: Calcium. MM/XR DEXA axial skeleton IMPRESSION: 1. DIAGNOSIS: Osteoporosis based on the lowest T-score value of -2.5 in the femoral neck applying World Health Organization criteria. 2. 10-YEAR FRACTURE RISK PREDICTION, FRAX: According to the guidelines, FRAX calculation should only be performed on patients in the osteopenia bone density category. Therefore, FRAX was not performed on this patient. 3. Treatment Recommendations: NOF guidelines recommend consideration for treatment in postmenopausal women and men age 50 and older presenting with the following: -A hip or vertebral (clinical or morphometric) fracture. -T-score less than or equal to -2.5 at the femoral neck or spine after appropriate evaluation to exclude secondary causes. -Low bone mass at the hip or spine and a 10-year fracture probability by FRAX of greater than or equal to 3% for hip fracture or greater than or equal to 20% for major osteoporotic fracture based on the [place] adapted WHO algorithm. 4. Other Recommendations: All treatment decisions require clinical judgment and consideration of individual patient factors, including patient preferences, comorbidities, previous drug use, risk factors not captured in the FRAX model (e.g. frailty, falls, vitamin D deficiency, increased bone turnover, interval significant decline in bone density) and possible under or overestimation of fracture risk by FRAX. Additional medical evaluation for secondary cause of low bone mineral density may be appropriate. FUTURE SCAN RECOMMENDATION: People with diagnosed cases of osteoporosis or at high risk for fracture should have regular bone mineral density tests. For patients eligible for Medicare, routine testing is allowed once every 2 years. The testing frequency can be increased to one year for patients who have rapidly progressing disease, those who are receiving or discontinuing medical therapy to restore bone mass, or have additional risk factors.
== END 2023-12-26 13:52 | disposition home or self-care (01) ==
LOC: HO.MAMMO 13:51
PROVIDERS: PCP Internal Medicine; Visit Provider Advanced Practice Midwife
DX: Z13.820 Encounter for screening for osteoporosis (principal); Z78.0 Asymptomatic menopausal state
CPT/HCPCS: 77080

== ENCOUNTER 2024-01-10 19:39 | Emergency (ER) | payer OTHER, SELFPAY ==
--- NOTE | ~2024-01-10 | XR_ITS ---
EXAMINATION: XR LUMBOSACRAL SPINE CLINICAL INFORMATION: Atraumatic right lower back pain COMPARISON: CT scan abdomen and pelvis December 09, 2023 TECHNIQUE: Three views of the lumbosacral spine. FINDINGS: No acute adenopathy. There is no acute fracture. Chronic stable compression deformity superior endplate of the L3 vertebrae. Multilevel degenerative spondylosis. Vertebral endplate spurring and facet joint arthrosis; the prior study. Disc height narrowing L4-L5 stable. Vascular calcifications of the aorta. XR/XR lumbar spine 2-3V IMPRESSION: 1. No acute abnormality. 2. Chronic stable compression deformity superior endplate of the L3 vertebrae. 3. Multilevel degenerative spondylosis. Electronically signed by: Osvaldo Okeefe MD 01/10/2024 11:51 PM EDT
[2024-01-10 19:42] VITALS: BP 139/76; PULSE 77; O2SAT 99
--- NOTE | 2024-01-10 20:15 | ED.SKABFB ---
HPI - Skin/Abscess/Foreign Bdy General Stated complaint: WOUND ON BUTTOCK Related Data Home Medications ?Medication ?Instructions ?Recorded ?Confirmed buprenorphine 8 mg-naloxone 2 mg 1 film sublingual BID 10/22/20 10/16/23 sublingual film (Suboxone) melatonin 5 mg tablet 5 mg PO BEDTIME PRN Sleep 04/15/21 10/16/23 pantoprazole 40 mg tablet,delayed 40 mg PO DAILY@0630 04/15/21 10/16/23 release aspirin 81 mg tablet,delayed 1 tab PO DAILY 10/11/21 10/16/23 release albuterol sulfate 90 mcg/actuation 2 puff inhalation Q4H PRN wheezing 01/31/22 10/16/23 aerosol inhaler (Ventolin HFA) ondansetron 4 mg disintegrating 4 mg PO BID PRN nausea and vomiting 03/09/22 10/16/23 tablet carvedilol 6.25 mg tablet 1 tab PO BID 04/24/22 10/16/23 albuterol sulfate 2.5 mg/3 mL 1 amp inhalation TID PRN Shortness 05/08/22 10/16/23 (0.083 %) solution for nebulization Of Breath isosorbide dinitrate 30 mg tablet 30 mg PO TID 07/10/22 10/16/23 calcium acetate(phosphat bind) 667 1,334 mg PO TIDWM 03/13/23 10/16/23 mg capsule clonidine HCl 0.1 mg tablet 0.1 mg PO BID 03/13/23 10/16/23 lactulose 10 gram/15 mL oral 20 g PO DAILY constipation 03/13/23 10/16/23 solution mirtazapine 15 mg tablet 15 mg PO BEDTIME 03/13/23 10/16/23 acetaminophen 500 mg tablet 500 mg PO TID PRN Pain 10/16/23 10/16/23 diclofenac sodium 1 % topical gel 2 g topical BID PRN Pain 10/16/23 10/16/23 fluticasone propionate 110 1 puff inhalation BID 10/16/23 10/16/23 mcg/actuation HFA aerosol inhaler nicotine 14 mg/24 hr daily 1 patch topical DAILY 10/16/23 10/16/23 transdermal patch polyethylene glycol 3350 17 17 g PO DAILY 10/16/23 10/16/23 gram/dose oral powder Previous Rx's ?Medication ?Instructions ?Recorded diphenhydramine HCl 25 mg capsule 25 mg PO DAILY PRN allergy 04/30/22 (Benadryl) symptoms #30 caps lidocaine 5 % topical ointment 1 appl topical BEDTIME PRN pain 01/07/23 #30 grams psyllium seed (sugar) oral powder 1 tbsp PO DAILY #1,254 grams 09/26/23 (Metamucil (sugar) oral powder) amlodipine 5 mg tablet 10 mg (2 x 5 mg) PO DAILY #90 tabs 10/17/23 docusate sodium 100 mg capsule 100 mg PO BID #60 caps 12/27/23 (Colace) hydrocortisone 2.5 % topical cream 1 appl [place] BID PRN Pain #30 grams 12/27/23 with perineal applicator Allergies Allergy/AdvReac Type Severity Reaction Status Date / Time No Known Allergies Allergy Verified 01/10/24 20:17 [facility] Past Medical History Medical History Hemorrhoids with complication ESRD on dialysis Delirium Sepsis Tachycardia Leukocytosis Fever End stage chronic kidney disease Congestive heart failure with left ventricular dysfunction ESRD (end stage renal disease) Hypertension Pulmonary congestion COVID-19 virus infection Asthma with COPD with exacerbation COVID ESRD (end stage renal disease) Hypertrophic cardiomyopathy Acute exacerbation of chronic obstructive pulmonary disease (COPD) Heart failure with preserved ejection fraction Constipation End stage renal disease on dialysis Ascites Anasarca Ischemic colitis Acute GI bleeding Anemia Dialysis patient, noncompliant Anemia in chronic kidney disease Opioid withdrawal Essential hypertension Diabetes mellitus Surgical History No pertinent past surgical history Family History Family History Other Hypertension Social History Social History Household Members: None Housing: Apartment Do you presently have visiting nurse or other home services: Yes Unable to assess alcohol history related to: Unknown Alcohol intake: current Alcohol intake frequency: does not drink Comment: pt refuses high fall risk protocol Patient Tobacco Use Status: Never used Tobacco Tobacco use type: Cigarette Cigarettes Per Day: 2 Years Smoked: 50 +/- e-Cigarette/Vaping Use: Former Use Second Hand Smoke Exposure: No Substance Use Type: Marijuana Advance Directives Date on File: 04/17/22 service: No Current occupational status: disabled Course Course Course Narrative: This is a Rapid Medical Examination (RME) performed by Martha Levin PA-C in triage. Full HPI, ROS, assessment and treatment plan per primary provider in the Main ED. 68 yo female hx of ESRD on HD T/, hypertension, anemia, reactive airway disease BIBA from home for eval Plan: labs Discharge Plan Discharge Prescriptions: No Action docusate sodium [Colace] 100 mg capsule 100 mg PO BID Qty: 60 0RF hydrocortisone 2.5 % cream with perineal applicator 1 appl [place] BID PRN (Reason: Pain) Qty: 30 0RF buprenorphine-naloxone [Suboxone] 8-2 mg film 1 film sublingual BID pantoprazole 40 mg Tablet,Delayed Release (Dr/Ec) 40 mg PO DAILY@0630 melatonin 5 mg Tablet 5 mg PO BEDTIME PRN (Reason: Sleep) aspirin 81 mg tablet,delayed release (DR/EC) 1 tab PO DAILY albuterol sulfate [Ventolin HFA] 90 mcg/actuation HFA aerosol inhaler 2 puff INHALATION Q4H PRN (Reason: wheezing) ondansetron 4 mg tablet,disintegrating 4 mg PO BID PRN (Reason: nausea and vomiting) carvedilol 6.25 mg tablet 1 tab PO BID diphenhydramine HCl [Benadryl] 25 mg capsule 25 mg PO DAILY PRN (Reason: allergy symptoms) Qty: 30 0RF albuterol sulfate 2.5 mg /3 mL (0.083 %) solution for nebulization 1 amp inhalation TID PRN (Reason: Shortness Of Breath) isosorbide dinitrate 30 mg Tablet 30 mg PO TID Rx Instructions: allow nitrate-free interval of 12-14 hrs per 24-hr period lidocaine 5 % ointment 1 appl topical BEDTIME PRN (Reason: pain) Qty: 30 0RF clonidine HCl 0.1 mg tablet 0.1 mg PO BID mirtazapine 15 mg tablet 15 mg PO BEDTIME calcium acetate(phosphat bind) 667 mg capsule 1,334 mg PO TIDWM lactulose 10 gram/15 mL solution 20 g PO DAILY nicotine 14 mg/24 hr patch 24 hour 1 patch topical DAILY acetaminophen 500 mg tablet 500 mg PO TID PRN (Reason: Pain) polyethylene glycol 3350 17 gram/dose powder 17 g PO DAILY diclofenac sodium 1 % gel 2 g topical BID PRN (Reason: Pain) fluticasone propionate 110 mcg/actuation HFA aerosol inhaler 1 puff INHALATION BID amlodipine 5 mg tablet 10 mg PO DAILY Qty: 90 0RF Metamucil (sugar) Powder 1 tbsp PO DAILY Qty: 1254 0RF Print Language: [place]
[2024-01-10 20:16] VITALS: BP 118/63; PULSE 70; RESP 16; TEMP 37; O2SAT 94; BMI 28.3
--- NOTE | 2024-01-10 20:22 | ED_ITS ---
HPI - Back Pain/Injury General Chief Complaint: Skin/Abscess/Foreign Body Stated Complaint: WOUND ON BUTTOCK Time Seen by Provider: 01/11/24 01:42 Source: patient Mode of arrival: ambulatory Limitations: no limitations History of Present Illness ED Provider: zaina BARON Narrative: Patient with end-stage renal disease on dialysis Sunday and Sunday had dialysis earlier complaining of low back pain which is going on for a while recent fall or injury no vomiting patient does have compression fracture L3 in the previous x-ray Related Data Home Medications ?Medication ?Instructions ?Recorded ?Confirmed buprenorphine 8 mg-naloxone 2 mg 1 film sublingual BID 10/22/20 10/16/23 sublingual film (Suboxone) melatonin 5 mg tablet 5 mg PO BEDTIME PRN Sleep 04/15/21 10/16/23 pantoprazole 40 mg tablet,delayed 40 mg PO DAILY@0630 04/15/21 10/16/23 release aspirin 81 mg tablet,delayed 1 tab PO DAILY 10/11/21 10/16/23 release albuterol sulfate 90 mcg/actuation 2 puff inhalation Q4H PRN wheezing 01/31/22 10/16/23 aerosol inhaler (Ventolin HFA) ondansetron 4 mg disintegrating 4 mg PO BID PRN nausea and vomiting 03/09/22 10/16/23 tablet carvedilol 6.25 mg tablet 1 tab PO BID 04/24/22 10/16/23 albuterol sulfate 2.5 mg/3 mL 1 amp inhalation TID PRN Shortness 05/08/22 10/16/23 (0.083 %) solution for nebulization Of Breath isosorbide dinitrate 30 mg tablet 30 mg PO TID 07/10/22 10/16/23 calcium acetate(phosphat bind) 667 1,334 mg PO TIDWM 03/13/23 10/16/23 mg capsule clonidine HCl 0.1 mg tablet 0.1 mg PO BID 03/13/23 10/16/23 lactulose 10 gram/15 mL oral 20 g PO DAILY constipation 03/13/23 10/16/23 solution mirtazapine 15 mg tablet 15 mg PO BEDTIME 03/13/23 10/16/23 acetaminophen 500 mg tablet 500 mg PO TID PRN Pain 10/16/23 10/16/23 diclofenac sodium 1 % topical gel 2 g topical BID PRN Pain 10/16/23 10/16/23 fluticasone propionate 110 1 puff inhalation BID 10/16/23 10/16/23 mcg/actuation HFA aerosol inhaler nicotine 14 mg/24 hr daily 1 patch topical DAILY 10/16/23 10/16/23 transdermal patch polyethylene glycol 3350 17 17 g PO DAILY 10/16/23 10/16/23 gram/dose oral powder Previous Rx's ?Medication ?Instructions ?Recorded diphenhydramine HCl 25 mg capsule 25 mg PO DAILY PRN allergy 04/30/22 (Benadryl) symptoms #30 caps lidocaine 5 % topical ointment 1 appl topical BEDTIME PRN pain 01/07/23 #30 grams psyllium seed (sugar) oral powder 1 tbsp PO DAILY #1,254 grams 09/26/23 (Metamucil (sugar) oral powder) amlodipine 5 mg tablet 10 mg (2 x 5 mg) PO DAILY #90 tabs 10/17/23 docusate sodium 100 mg capsule 100 mg PO BID #60 caps 12/27/23 (Colace) hydrocortisone 2.5 % topical cream 1 appl [place] BID PRN Pain #30 grams 12/27/23 with perineal applicator Allergies Allergy/AdvReac Type Severity Reaction Status Date / Time No Known Allergies Allergy Verified 01/10/24 20:17 Review of Systems Review of Systems: Yes all other systems are reviewed and are negative [facility] Past Medical History Medical History Hemorrhoids with complication ESRD on dialysis Delirium Sepsis Tachycardia Leukocytosis Fever End stage chronic kidney disease Congestive heart failure with left ventricular dysfunction ESRD (end stage renal disease) Hypertension Pulmonary congestion COVID-19 virus infection Asthma with COPD with exacerbation COVID ESRD (end stage renal disease) Hypertrophic cardiomyopathy Acute exacerbation of chronic obstructive pulmonary disease (COPD) Heart failure with preserved ejection fraction Constipation End stage renal disease on dialysis Ascites Anasarca Ischemic colitis Acute GI bleeding Anemia Dialysis patient, noncompliant Anemia in chronic kidney disease Opioid withdrawal Essential hypertension Diabetes mellitus Surgical History No pertinent past surgical history Family History Family History Other Hypertension Social History Social History Household Members: None Housing: Apartment Do you presently have visiting nurse or other home services: Yes Unable to assess alcohol history related to: Unknown Alcohol intake: current Alcohol intake frequency: does not drink Comment: pt refuses high fall risk protocol Patient Tobacco Use Status: Never used Tobacco Tobacco use type: Cigarette Cigarettes Per Day: 2 Years Smoked: 50 +/- Smoked in Last 30 Days: Yes e-Cigarette/Vaping Use: Former Use Second Hand Smoke Exposure: No Use of substances other than those prescribed or required for medical reasons: No Substance Use Type: Marijuana Advance Directives: Yes Advance Directives on File: Yes Advance Directives Date on File: 04/17/22 Do you have a plan to hurt others: No Plan service: No Current occupational status: disabled Physical Exam 2 Vital Signs: Vital Signs: Last Vital Signs Temp 98.6 F 01/11/24 03:31 Pulse 60 01/11/24 03:31 Resp 16 01/11/24 03:31 BP 148/68 H 01/11/24 03:31 Pulse Ox 98 01/11/24 03:31 O2 Del Method Room Air 01/11/24 03:31 BMI result Body Mass Index 28.3 Appearance: Alert. Oriented X3. No acute distress. Eyes: No pallor or icterus ENT: Pharynx normal. Oral Mucosa moist Neck: Normal inspection. Neck supple. CVS: Normal heart rate and rhythm. Pulses normal. Respiratory: No respiratory distress. Equal air entry bilateral, no wheezing/ rales/rhonchi Abdomen: Soft and nontender. Bowel sounds are present, no mass palpable, no CVA tenderness Skin: Skin warm and dry. Normal skin color. Normal skin turgor. back: Diffuse tenderness left paraspinal area Extremities: No lower extremity edema. No calf tenderness Neuro: Oriented X 3. No motor deficit. Course Course Course Narrative: This is a Rapid Medical Examination (RME) performed by Martha Levin PA-C in triage. Full HPI, ROS, assessment and treatment plan per primary provider in the Main ED. 68 yo female hx of ESRD on HD T/TH, HTN, anemia, reactive airway disease BIBA for eval of acute on chronic right lower back pain x today. Denies pain radiation. Denies new trauma, injury or fall. Reports she was dialyzed today. Plan: Lumbar x-ray Medications Administered Discontinued Medications Generic Name Dose Route Start Last Admin Trade Name Freq PRN Reason Stop Dose Admin Oxycodone HCl 5 mg 01/11/24 01:50 01/11/24 02:16 Oxycodone Hcl Immed Release 5 Mg Tablet PO 01/11/24 01:51 5 mg ONCE ONE Administration Medical Decision Making Independent Interpretation I performed an independent interpretation of an: Plain X-Ray Radiology Impression Discussion of test interpretation with radiology: I have reviewed the radiologist's reading. Radiologist Impression: [address] [id number] XRay Report Signed Patient: Cruz Muller MR#: [id number] : 1955 Acct:[id number] Age/Sex: 68 / F ADM Date: 01/10/24 Loc: .ED Attending Dr: Ordering Physician: Layla Levin Date of Service: 01/10/24 Procedure(s): XR lumbar spine 2-3V Accession Number(s): [id number] cc: Layla Levin~ EXAMINATION: XR LUMBOSACRAL SPINE CLINICAL INFORMATION: Atraumatic right lower back pain COMPARISON: CT scan abdomen and pelvis December 09, 2023 TECHNIQUE: Three views of the lumbosacral spine. FINDINGS: No acute adenopathy. There is no acute fracture. Chronic stable compression deformity superior endplate of the L3 vertebrae. Multilevel degenerative spondylosis. Vertebral endplate spurring and facet joint arthrosis; the prior study. Disc height narrowing L4-L5 stable. Vascular calcifications of the aorta. XR/XR lumbar spine 2-3V IMPRESSION: 1. No acute abnormality. 2. Chronic stable compression deformity superior endplate of the L3 vertebrae. 3. Multilevel degenerative spondylosis. Electronically signed by: Osvaldo Okeefe MD 01/10/2024 11:51 PM EDT Discharge Plan Discharge Clinical Impression: Low back pain Patient Disposition: Home, Self-Care Instructions: Acute Low Back Pain (ED) Additional Instructions: Tylenol for pain Continue your other medication Prescriptions: No Action docusate sodium [Colace] 100 mg capsule 100 mg PO BID Qty: 60 0RF hydrocortisone 2.5 % cream with perineal applicator 1 appl [place] BID PRN (Reason: Pain) Qty: 30 0RF buprenorphine-naloxone [Suboxone] 8-2 mg film 1 film sublingual BID pantoprazole 40 mg Tablet,Delayed Release (Dr/Ec) 40 mg PO DAILY@0630 melatonin 5 mg Tablet 5 mg PO BEDTIME PRN (Reason: Sleep) aspirin 81 mg tablet,delayed release (DR/EC) 1 tab PO DAILY albuterol sulfate [Ventolin HFA] 90 mcg/actuation HFA aerosol inhaler 2 puff INHALATION Q4H PRN (Reason: wheezing) ondansetron 4 mg tablet,disintegrating 4 mg PO BID PRN (Reason: nausea and vomiting) carvedilol 6.25 mg tablet 1 tab PO BID diphenhydramine HCl [Benadryl] 25 mg capsule 25 mg PO DAILY PRN (Reason: allergy symptoms) Qty: 30 0RF albuterol sulfate 2.5 mg /3 mL (0.083 %) solution for nebulization 1 amp inhalation TID PRN (Reason: Shortness Of Breath) isosorbide dinitrate 30 mg Tablet 30 mg PO TID Rx Instructions: allow nitrate-free interval of 12-14 hrs per 24-hr period lidocaine 5 % ointment 1 appl topical BEDTIME PRN (Reason: pain) Qty: 30 0RF clonidine HCl 0.1 mg tablet 0.1 mg PO BID mirtazapine 15 mg tablet 15 mg PO BEDTIME calcium acetate(phosphat bind) 667 mg capsule 1,334 mg PO TIDWM lactulose 10 gram/15 mL solution 20 g PO DAILY nicotine 14 mg/24 hr patch 24 hour 1 patch topical DAILY acetaminophen 500 mg tablet 500 mg PO TID PRN (Reason: Pain) polyethylene glycol 3350 17 gram/dose powder 17 g PO DAILY diclofenac sodium 1 % gel 2 g topical BID PRN (Reason: Pain) fluticasone propionate 110 mcg/actuation HFA aerosol inhaler 1 puff INHALATION BID amlodipine 5 mg tablet 10 mg PO DAILY Qty: 90 0RF Metamucil (sugar) Powder 1 tbsp PO DAILY Qty: 1254 0RF Interventions: ED Discharge Assessment Last Done: 01/11/24 03:31 Discharge Date/Time: 01/11/24 03:32 Print Language: Burmese
[2024-01-10 22:36] VITALS: BP 155/73; PULSE 66; RESP 14; TEMP 36.8; O2SAT 95
[2024-01-11 01:33] VITALS: BP 168/91; PULSE 64; RESP 16; TEMP 36.9; O2SAT 98
[2024-01-11] MEDS: oxyCODONE HCl Immed Release 5 MG TABLET PO (02:16)
[2024-01-11 03:31] VITALS: BP 148/68; PULSE 60; RESP 16; TEMP 37; O2SAT 98
== END 2024-01-11 03:32 | disposition home or self-care (01) ==
PROVIDERS: Emergency Provider Internal Medicine; PCP Internal Medicine
DX: M54.50 Low back pain, unspecified (principal); E11.22 Type 2 diabetes mellitus with diabetic chronic kidney disease; I13.2 Hypertensive heart and chronic kidney disease with heart failure and with stage 5 chronic kidney disease, or end stage renal disease; I50.9 Heart failure, unspecified; N18.6 End stage renal disease; Z99.2 Dependence on renal dialysis; F11.20 Opioid dependence, uncomplicated; Z79.82 Long term (current) use of aspirin; Z79.899 Other long term (current) drug therapy
CPT/HCPCS: 72100; 99283; 99284

== ENCOUNTER 2024-01-28 10:45 | Outpatient (AMB) | payer OTHER, SELFPAY ==
--- NOTE | 2024-01-28 11:12 | MHC.OFFVIS ---
Vital Signs 01/28/24 11:17 Height 5 ft 1 in Weight 150 lb 8 oz BMI 28.4 BP 220/107 H Blood Pressure Location Lt brachial Position Sitting Pulse 71 Intake Visit Reasons: Hemorrhoids Intake Note: Patient is seen in office for hemorrhoids. 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 Processing Worker Services: Jet Operator Present Jet Operator Name: Marissa BAIRES Information Interpreted: non-clinical & clinical Fence Installer Foreman: Fence Installer Foreman Present Accompanied by: Self / Same As Patient Allergies No Known Allergies Allergy (Verified 01/28/24 11:14) Medication List - Last Reconciled 01/28/24 by Edmundo Luis MD acetaminophen 500 mg PO TID PRN albuterol sulfate 90 mcg/actuation (Ventolin HFA) 2 puffs inhalation Q4H PRN albuterol sulfate 1 amp inhalation TID PRN amlodipine 10 mg (2 x 5 mg) PO DAILY aspirin 1 tab PO DAILY buprenorphine-naloxone 8-2 mg (Suboxone) 1 film sublingual BID calcium acetate(phosphat bind) 1,334 mg PO TIDWM carvedilol 25 mg PO BID clonidine HCl 0.1 mg PO BID diclofenac sodium 1% 2 grams topical BID PRN diphenhydramine HCl (Benadryl) 25 mg PO DAILY PRN docusate sodium (Colace) 100 mg PO BID fluticasone propionate 110 mcg/actuation 1 puff inhalation BID hydrocortisone 2.5% 1 appl [place] BID PRN isosorbide dinitrate 30 mg PO TID lactulose 20 grams PO DAILY lidocaine 5% 1 appl topical BEDTIME PRN losartan 50 mg PO DAILY melatonin 5 mg PO BEDTIME PRN mirtazapine 15 mg PO BEDTIME nicotine 1 patch topical DAILY ondansetron 4 mg PO BID PRN pantoprazole 40 mg PO DAILY@0630 polyethylene glycol 3350 17 grams PO DAILY psyllium seed (sugar) (Metamucil (sugar) oral powder) 1 tbsp PO DAILY trazodone 50 mg PO BEDTIME HPI HPI Hemorrhoids: Details: She is here for follow-up for her prolapsing hemorrhoids. She says that lately, she has had significant pain whenever this prolapse. She occasionally sees blood on wiping. She was chronic constipation as well. She admits that she still sits on the toilet for her very long periods of time even without bowel movements. She describes itching as well. Describes burning pain in her anus whenever her hemorrhoids or prolapse. She is on hemodynamics this 3 times a week via a subclavian catheter. [facility] Medical History (Updated 01/28/24 @ 11:45 by Edmundo Luis MD) Hemorrhoids that prolapse with straining, but retract spontaneously Hemorrhoids with complication ESRD on dialysis Delirium Sepsis Tachycardia Leukocytosis Fever End stage chronic kidney disease Congestive heart failure with left ventricular dysfunction ESRD (end stage renal disease) Hypertension Pulmonary congestion COVID-19 virus infection Asthma with COPD with exacerbation COVID ESRD (end stage renal disease) Hypertrophic cardiomyopathy Acute exacerbation of chronic obstructive pulmonary disease (COPD) Heart failure with preserved ejection fraction Constipation End stage renal disease on dialysis Ascites Anasarca Ischemic colitis Acute GI bleeding Anemia Dialysis patient, noncompliant Anemia in chronic kidney disease Opioid withdrawal Essential hypertension Diabetes mellitus Surgical History No pertinent past surgical history Family History Other Hypertension Social History Household Members: None Housing: Apartment Do you presently have visiting nurse or other home services: Yes Unable to assess alcohol history related to: Unknown Alcohol intake: current Alcohol intake frequency: does not drink Comment: pt refuses high fall risk protocol Patient Tobacco Use Status: Never used Tobacco Tobacco use type: Cigarette Cigarettes Per Day: 2 Years Smoked: 50 +/- e-Cigarette/Vaping Use: Former Use Second Hand Smoke Exposure: No Substance Use Type: Marijuana Advance Directives Date on File: 04/17/22 service: No Current occupational status: disabled Review of Systems Const Denies chills and Denies fever(s) Card Denies chest pain Resp Denies cough GI Reports constipation Details: On hemodialysis Physical Exam Vital Signs: Last Vital Signs Pulse 71 01/28/24 11:17 BP 220/107 H 01/28/24 11:17 BMI result Body Mass Index 28.4 Const General: comfortable and no acute distress Resp Effort & Inspection: normal respiratory effort Cardio Rate: regular rate GI Other: Rectal exam shows prolapsing internal hemorrhoids, easily reduced, no blood, no significant tenderness, no infection, thrombosis Palpation (GI): Soft to palpation Assessment & Plan Assessment & Plan (1) Hemorrhoids that prolapse with straining, but retract spontaneously: Code(s): K64.1 - Second degree hemorrhoids Category: Medical Plan: She is well known to me for prolapsing hemorrhoids. However, she has this chronic constipation as well. I told her that it would be best to have a better controlled with a chronic constipation for now. It was best to maximize medical management of her hemorrhoids in view of her multiple medical problems I advised her to increase her Metamucil twice a day. She is not to stay on the toilet for long periods of time and I emphasized this to her She can follow up in the office on a p.r.n. basis. While in the office, her blood pressure was very high with a systolic of 220. She was asymptomatic. We are repeating this to make sure that this is coming down. Coding Level of Care Code Est Pt Level 3 (23696) Diagnoses Hemorrhoids that prolapse with straining, but retract spontaneously K64.1
[2024-01-28 11:17] VITALS: BP 220/107; PULSE 71; BMI 28.4
== END 2024-01-28 11:52 | disposition home or self-care (01) ==
PROVIDERS: PCP Internal Medicine; Visit Provider Surgery
DX: K64.1 Second degree hemorrhoids (principal)
CPT/HCPCS: 99213

== ENCOUNTER → 2024-01-28 10:45 | Outpatient (BNVA) | payer OTHER, SELFPAY | PROVIDERS: PCP Internal Medicine; Visit Provider Surgery | DX: K64.1 Second degree hemorrhoids (principal) | CPT/HCPCS: 99212 ==

== ENCOUNTER 2024-02-18 09:20 | Emergency (ER) | payer OTHER, SELFPAY ==
--- NOTE | ~2024-02-18 | CT_ITS ---
EXAMINATION: CT ABDOMEN AND PELVIS WITHOUT CONTRAST CLINICAL INFORMATION: Constipation for 5 days. Rule out obstruction. COMPARISON: CT scans dating between December 09, 2023 and December 12, 2010. More remote prior studies are not currently available. TECHNIQUE: Multidetector volumetric imaging was performed from the superior aspect of the liver through the pubic symphysis. Sagittal and coronal reformatted images were obtained on the technologist's workstation. This CT examination was performed using dose optimization techniques as appropriate, variously including the following: *Automated exposure control *Adjustment of mA and/or kV according to patient size (this includes techniques or standardized protocols for targeted exams where dose is matched to indication/reason for exam; i.e. extremities or head) *Use of iterative reconstruction technique DLP: 561 mGy-cm FINDINGS: LUNG BASES: The lung bases appear clear, with no evidence of inflammation or nodules. Tip of a presumed central venous catheter deep in the right atrium. Heart upper normal in size. Decreased blood pool density, suggesting anemia. No pericardial fluid. LIVER, GALLBLADDER, AND BILIARY TREE: The liver appears unremarkable in size, shape, and attenuation. No focal hepatic lesion or biliary ductal dilatation is appreciated. Status post cholecystectomy. PANCREAS: Unremarkable SPLEEN: Unremarkable ADRENAL GLANDS: Unremarkable KIDNEYS AND URETERS: Approximately 4.5 cm or less benign left simple renal cysts for which no further dedicated follow-up imaging as indicated. The kidneys otherwise appear unremarkable in size, shape, and attenuation. No hydronephrosis, hydroureter, or calculi seen. BLADDER: Collapsed, therefore poorly evaluated. Grossly unremarkable. GASTROINTESTINAL TRACT: Moderate stool throughout the colon and rectal vault. No evidence of mechanical obstruction or free air. No diverticulosis Normal-appearing distal ileum and vermiform appendix. Unremarkable appearance of the stomach and small bowel. ABDOMINAL WALL: Approximately 1.5 cm umbilical hernia containing only fat. LYMPH NODES: No evidence of adenopathy by size criteria. VASCULAR: No change in approximately 1.3 cm, rim calcified, saccular right renal artery aneurysm. PELVIC VISCERA: L3 superior endplate deformity at L5 superior endplate degenerative changes, similar compared with December 09, 2023. Minimal, grade 1 anterolisthesis of L4 on L5. Mild degenerative changes of the hips. OSSEOUS STRUCTURES: Unremarkable CT/CT abdomen pelvis wo IV con IMPRESSION: No acute finding. Electronically signed by: Rigoberto Gonzalez MD 02/18/2024 11:34 AM EDT RP
--- NOTE | 2024-02-18 09:29 | ED.GENADULT ---
HPI - General Adult General Chief complaint: General Medical Stated complaint: NO BM,ABD PAIN X5D,FROM DIALYSIS PER EMS Time Seen by Provider: 02/18/24 09:23 Source: patient and EMS Mode of arrival: EMS Limitations: no limitations History of Present Illness ED Provider: Peter AMAYA HPI narrative: 68-year-old female history of DM, hypertension, hyponatremia, end-stage renal disease ( on HD sunday, , sunday) presents w/ nausea, vomiting X 1 day abd pain and no BM for 5 days. She is still passing gas but has not been able to have a bowel movement. Denies fevers, chills, cp, sob, headache, vision changes, dizziness, weakness Related Data Home Medications ?Medication ?Instructions ?Recorded ?Confirmed buprenorphine 8 mg-naloxone 2 mg 1 film sublingual BID 10/22/20 01/28/24 sublingual film (Suboxone) melatonin 5 mg tablet 5 mg PO BEDTIME PRN Sleep 04/15/21 01/28/24 pantoprazole 40 mg tablet,delayed 40 mg PO DAILY@0630 04/15/21 01/28/24 release aspirin 81 mg tablet,delayed 1 tab PO DAILY 10/11/21 01/28/24 release albuterol sulfate 90 mcg/actuation 2 puff inhalation Q4H PRN wheezing 01/31/22 01/28/24 aerosol inhaler (Ventolin HFA) ondansetron 4 mg disintegrating 4 mg PO BID PRN nausea and vomiting 03/09/22 01/28/24 tablet albuterol sulfate 2.5 mg/3 mL 1 amp inhalation TID PRN Shortness 05/08/22 01/28/24 (0.083 %) solution for nebulization Of Breath isosorbide dinitrate 30 mg tablet 30 mg PO TID 07/10/22 01/28/24 calcium acetate(phosphat bind) 667 1,334 mg PO TIDWM 03/13/23 01/28/24 mg capsule clonidine HCl 0.1 mg tablet 0.1 mg PO BID 03/13/23 01/28/24 lactulose 10 gram/15 mL oral 20 g PO DAILY constipation 03/13/23 01/28/24 solution mirtazapine 15 mg tablet 15 mg PO BEDTIME 03/13/23 01/28/24 acetaminophen 500 mg tablet 500 mg PO TID PRN Pain 10/16/23 01/28/24 diclofenac sodium 1 % topical gel 2 g topical BID PRN Pain 10/16/23 01/28/24 fluticasone propionate 110 1 puff inhalation BID 10/16/23 01/28/24 mcg/actuation HFA aerosol inhaler nicotine 14 mg/24 hr daily 1 patch topical DAILY 10/16/23 01/28/24 transdermal patch polyethylene glycol 3350 17 17 g PO DAILY 10/16/23 01/28/24 gram/dose oral powder carvedilol 25 mg tablet 25 mg PO BID 01/28/24 01/28/24 losartan 50 mg tablet 50 mg PO DAILY 01/28/24 01/28/24 trazodone 50 mg tablet 50 mg PO BEDTIME 01/28/24 01/28/24 Previous Rx's ?Medication ?Instructions ?Recorded diphenhydramine HCl 25 mg capsule 25 mg PO DAILY PRN allergy 04/30/22 (Benadryl) symptoms #30 caps psyllium seed (sugar) oral powder 1 tbsp PO DAILY #1,254 grams 09/26/23 (Metamucil (sugar) oral powder) amlodipine 5 mg tablet 10 mg (2 x 5 mg) PO DAILY #90 tabs 10/17/23 docusate sodium 100 mg capsule 100 mg PO BID #60 caps 12/27/23 (Colace) hydrocortisone 2.5 % topical cream 1 appl [place] BID PRN Pain #30 grams 12/27/23 with perineal applicator lidocaine 5 % topical ointment 1 appl topical BEDTIME PRN pain 01/28/24 #30 grams docusate sodium 100 mg capsule 100 mg PO BID #20 caps 02/18/24 (Colace) polyethylene glycol 3350 17 17 g PO BID PRN constipation #238 02/18/24 gram/dose oral powder (Miralax) grams sennosides 8.6 mg tablet (senna) 8.6 mg PO BEDTIME #14 tabs 02/18/24 Allergies Allergy/AdvReac Type Severity Reaction Status Date / Time No Known Allergies Allergy Verified 02/18/24 09:33 Review of Systems Review of Systems: Yes all other systems are reviewed and are negative PMFSH Past Medical History Attestation statement: The following information was validated with the patient. Source: old records reviewed and nursing notes reviewed Medical History Hemorrhoids that prolapse with straining, but retract spontaneously Hemorrhoids with complication ESRD on dialysis Delirium Sepsis Tachycardia Leukocytosis Fever End stage chronic kidney disease Congestive heart failure with left ventricular dysfunction ESRD (end stage renal disease) Hypertension Pulmonary congestion COVID-19 virus infection Asthma with COPD with exacerbation COVID ESRD (end stage renal disease) Hypertrophic cardiomyopathy Acute exacerbation of chronic obstructive pulmonary disease (COPD) Heart failure with preserved ejection fraction Constipation End stage renal disease on dialysis Ascites Anasarca Ischemic colitis Acute GI bleeding Anemia Dialysis patient, noncompliant Anemia in chronic kidney disease Opioid withdrawal Essential hypertension Diabetes mellitus Surgical History No pertinent past surgical history Family History Family History Other Hypertension Social History Social History Household Members: None Housing: Apartment Do you presently have visiting nurse or other home services: Yes Unable to assess alcohol history related to: Unknown Alcohol intake: current Alcohol intake frequency: does not drink Comment: pt refuses high fall risk protocol Patient Tobacco Use Status: Never used Tobacco Tobacco use type: Cigarette Cigarettes Per Day: 2 Years Smoked: 50 +/- e-Cigarette/Vaping Use: Former Use Second Hand Smoke Exposure: No Substance Use Type: Marijuana Advance Directives: Yes Advance Directives on File: Yes Advance Directives Date on File: 04/17/22 Do you have a plan to hurt others: No Plan service: No Current occupational status: disabled Physical Exam ED Vital Signs: Vital Signs - 24 hr 02/18/24 09:31 Pulse Rate 65 Respiratory Rate 18 Blood Pressure 169/86 H Pulse Oximetry 98 Oxygen Delivery Method Room Air BMI result Body Mass Index 25.2 vss Appearance: Alert.? Oriented X3.? No acute distress.? Head: Normocephalic, atraumatic, no step-offs or deformities Eyes: Pupils equal, round and reactive to light.? ENT: Pharynx normal.? Neck: Normal inspection.? Neck supple.? CVS: Normal heart rate and rhythm.? Pulses normal.? Respiratory: No respiratory distress.? Breath sounds normal.? Abdomen: Soft and + diffusely tender w/ distention.? Skin: Skin warm and dry.? Normal skin color.? Normal skin turgor.? Extremities: No lower extremity edema.? No calf ttp. 5/5 strength to bilateral upper and lower extremities Neuro: Oriented X 3.? No motor deficit.? No sensory deficit. CN 2-12 intact Course Reevaluation(s) Reevaluation #1: CBC with a normocytic anemia appears to be around baseline. Chemistry pending. Time: 14:37 Reevaluation #2: Chemistry with slightly low sodium 131 patient mentating well tolerating p.o. will encourage p.o. hydration. Potassium 5.6 10 of Lokelma, will be given at this time. BUN and creatinine elevated patient with end-stage renal disease due for dialysis tomorrow. This is not due to infection. Coags unremarkable CT abdomen and pelvis no acute findings. Time: 15:34 Reevaluation #3: Waiting for patient to have BM. Sign out to Angelica Time: 15:47 Medications Administered Discontinued Medications Generic Name Dose Route Start Last Admin Trade Name Mickeyq PRN Reason Stop Dose Admin Acetaminophen 650 mg 02/18/24 14:00 02/18/24 15:07 Acetaminophen 325 Mg Tablet PO 02/18/24 14:01 650 mg ONCE ONE Administration Bisacodyl 10 mg 02/18/24 13:59 02/18/24 15:07 Bisacodyl 5 Mg Tablet. PO 02/18/24 14:00 10 mg ONCE ONE Administration Docusate Sodium 100 mg 02/18/24 09:27 02/18/24 09:46 Docusate Sodium 100 Mg Capsule PO 02/18/24 09:28 100 mg ONCE ONE Administration Polyethylene Glycol 17 gm 02/18/24 09:27 02/18/24 09:46 Polyethylene Glycol 3350 17 Gm Powd.Pack PO 02/18/24 09:28 17 gm ONCE ONE Administration Medical Decision Making Medical Decision Making [facility] Narrative: 68 yo f presents w/ abd pain, no bm X 5 days and nausea and vomiting x 1 day PE abd Soft and + diffusely tender w/ distention.? Hx and pe concerning for constipation vs obstruction (SBO,LBO). Unlikely acute abdomen, sbo, appendicitis, cholecystitis, diverticulitis, pancreatitis Plan- labs, imaging, bowel regimine Differential Diagnosis Differential Diagnoses: The differential diagnosis associated with the presentation includes (Hx and pe concerning for constipation vs obstruction (SBO,LBO). Unlikely acute abdomen, sbo, appendicitis, cholecystitis, diverticulitis, pancreatitis) Admission/Observation Consideration of admission/observation: Escalation of care including admission/observation considered Lab Data MDM Lab Attestation statement: I reviewed the patient's lab results. 02/18/24 14:15 02/18/24 14:15 Labs: Lab Results 02/18/24 Range/Units 14:15 WBC 7.0 (4.8-10.8) X10*3/uL RBC 2.90 L D (4.20-5.50) X10*6/uL Hgb 9.4 L D (12.0-16.0) g/dl Hct 27.9 L D (37.0-47.0) % MCV 96.2 (80.0-98.0) fL MCH 32.4 (27.0-33.0) pg MCHC 33.7 (31.0-35.0) g/dl RDW 13.5 (11.0-16.0) % Plt Count 152 L D (160-400) X10*3/uL MPV 10.4 (9.4-12.3) fL Immature Gran % (Auto) 0.1 (0.0-0.4) % Neut % (Auto) 63.7 (45-73) % Lymph % (Auto) 23.7 (20-40) % Perkins % (Auto) 8.2 (2-11) % Eos % (Auto) 4.0 (0-4) % Baso % (Auto) 0.3 (0-2) % Lymph # (Auto) 1.7 (1.2-4.9) X10*3/uL Perkins # (Auto) 0.6 (0.1-1.2) X10*3/uL Eos # (Auto) 0.3 (0.0-0.4) X10*3/uL Baso # (Auto) 0.0 (0.0-0.2) X10*3/uL Abs Immat Gran (auto) 0.01 (0.00-0.03) X10*3/uL Absolute Neuts (auto) 4.4 (2.0-8.3) x10*3/uL Absolute Nucleated RBC 0.000 (0.0-0.012) X10*3/uL Nucleated RBC % (auto) 0.0 (0.0-0.2) /100WBC PT 10.7 L (10.9-12.4) SEC INR 0.9 (0.9-1.1) Sodium 131 L (135-145) mmol/L Potassium 5.6 H D (3.3-5.1) mmol/L Chloride 90 L (96-108) mmol/L Carbon Dioxide 27 (22-29) mmol/L Anion Gap 20 (12-20) BUN 68 H (9-16) mg/dL Creatinine 8.27 H* (0.5-1.4) mg/dL Estim Creat Clear Calc 6.1 Estimated GFR 5 Random Glucose 84 (60-115) mg/dL Calcium 9.1 D (8.4-10.2) mg/dL Magnesium 2.1 (1.6-2.6) mg/dL Total Bilirubin 0.4 (0.0-1.0) mg/dL AST 21 (5-31) U/L ALT 14 (0-31) U/L Alkaline Phosphatase 160 H (39-117) U/L Total Protein 6.9 (6.5-8.0) g/dL Albumin 3.8 (3.5-5.0) g/dL Lipase 15 (8-78) U/L Independent Interpretation I performed an independent interpretation of an: CT Scan ( CT/CT abdomen pelvis wo IV con IMPRESSION: No acute finding.) Radiology Impression Discussion of test interpretation with radiology: I have reviewed the radiologist's reading. External Record Review External record reviewed: Inpatient record, Office record, Outpatient record, Prior outpatient labs, Prior outpatient radiology, Primary care record and Outside ED record Chronic Conditions Patient?s care impacted by: Diabetes, Hypertension and Other (ckd, dm ) Critical Care Time Critical Care Time Critical Care Time: Yes Total Critical Care Time: 35 Attestation: I attest to this time spent taking care of the patient, obtaining history, physical, reviewing labs, imaging, treatment of patients condition +/- specialist/hospitalist consult Discharge Plan Discharge Clinical Impression: Constipation, Acute right flank pain, Acute hyperkalemia Patient Disposition: Home, Self-Care Instructions: Constipation (DC), High Fiber Diet (ED), Flank Pain (ED) Additional Instructions: Take your medications as prescribed. If you were prescribed antibiotics today, it is important that you take your medication to their entirety, do not skip any doses, do not finish them early. Follow-up with your primary care provider this week. Return to the emergency department with new or worsening symptoms. Such as fevers, chills, chest pain, shortness of breath, nausea, vomiting, dizziness, headache, vision changes, lethargy In case of emergency call 911 CT/CT abdomen pelvis wo IV con IMPRESSION: No acute finding. Prescriptions: New sennosides [senna] 8.6 mg tablet 8.6 mg PO BEDTIME Qty: 14 0RF docusate sodium [Colace] 100 mg capsule 100 mg PO BID Qty: 20 0RF polyethylene glycol 3350 [Miralax] 17 gram/dose powder 17 g PO BID PRN (Reason: constipation) Qty: 238 0RF No Action docusate sodium [Colace] 100 mg capsule 100 mg PO BID Qty: 60 0RF hydrocortisone 2.5 % cream with perineal applicator 1 appl [place] BID PRN (Reason: Pain) Qty: 30 0RF buprenorphine-naloxone [Suboxone] 8-2 mg film 1 film sublingual BID pantoprazole 40 mg Tablet,Delayed Release (Dr/Ec) 40 mg PO DAILY@0630 melatonin 5 mg Tablet 5 mg PO BEDTIME PRN (Reason: Sleep) aspirin 81 mg tablet,delayed release (DR/EC) 1 tab PO DAILY albuterol sulfate [Ventolin HFA] 90 mcg/actuation HFA aerosol inhaler 2 puff INHALATION Q4H PRN (Reason: wheezing) ondansetron 4 mg tablet,disintegrating 4 mg PO BID PRN (Reason: nausea and vomiting) diphenhydramine HCl [Benadryl] 25 mg capsule 25 mg PO DAILY PRN (Reason: allergy symptoms) Qty: 30 0RF albuterol sulfate 2.5 mg /3 mL (0.083 %) solution for nebulization 1 amp inhalation TID PRN (Reason: Shortness Of Breath) isosorbide dinitrate 30 mg Tablet 30 mg PO TID Rx Instructions: allow nitrate-free interval of 12-14 hrs per 24-hr period clonidine HCl 0.1 mg tablet 0.1 mg PO BID mirtazapine 15 mg tablet 15 mg PO BEDTIME calcium acetate(phosphat bind) 667 mg capsule 1,334 mg PO TIDWM lactulose 10 gram/15 mL solution 20 g PO DAILY nicotine 14 mg/24 hr patch 24 hour 1 patch topical DAILY acetaminophen 500 mg tablet 500 mg PO TID PRN (Reason: Pain) polyethylene glycol 3350 17 gram/dose powder 17 g PO DAILY diclofenac sodium 1 % gel 2 g topical BID PRN (Reason: Pain) fluticasone propionate 110 mcg/actuation HFA aerosol inhaler 1 puff INHALATION BID amlodipine 5 mg tablet 10 mg PO DAILY Qty: 90 0RF Metamucil (sugar) Powder 1 tbsp PO DAILY Qty: 1254 0RF carvedilol 25 mg tablet 25 mg PO BID losartan 50 mg tablet 50 mg PO DAILY trazodone 50 mg tablet 50 mg PO BEDTIME lidocaine 5 % ointment 1 appl topical BEDTIME PRN (Reason: pain) Qty: 30 1RF Referrals: Sammy Vicente MD [Primary Care Provider] - 2 days Print Language: Bengali
[2024-02-18 09:31] VITALS: BP 162/92; BP 169/86; PULSE 65; PULSE 66; RESP 18; O2SAT 98; BMI 25.2
[2024-02-18] MEDS: Docusate Sodium 100 MG CAPSULE PO (09:46)
[2024-02-18] MEDS: polyethylene glycoL 3350 17 GM POWD.PACK PO ×2 (09:46→16:55)
[2024-02-18 14:20] LABS: MANUAL DIFF FLAG NO
[2024-02-18 14:22] LABS: Basophils Percent Auto 0.3 % (0-2); Eosinophils Absolute Auto 0.3 X10*3/uL (0.0-0.4); Hematocrit 27.9 % (37.0-47.0); Hemoglobin 9.4 g/dl (12.0-16.0); Imm Gran Abs Auto 0.01 X10*3/uL (0.00-0.03); Imm Gran Pct Auto 0.1 % (0.0-0.4); Lymphocytes Absolute Auto 1.7 X10*3/uL (1.2-4.9); Lymphocytes Percent Auto 23.7 % (20-40); Mean Corpuscular HGB Conc 33.7 g/dl (31.0-35.0); Mean Corpuscular Hemoglobin 32.4 pg (27.0-33.0); Mean Corpuscular Volume 96.2 fL (80.0-98.0); Mean Platelet Volume 10.4 fL (9.4-12.3); Monocytes Absolute Auto 0.6 X10*3/uL (0.1-1.2); Monocytes Percent Auto 8.2 % (2-11); Neutrophils Absolute Auto 4.4 x10*3/uL (2.0-8.3); Neutrophils Percent Auto 63.7 % (45-73); Platelet Count 152 X10*3/uL (160-400); Red Cell Distribution Width 13.5 % (11.0-16.0)
[2024-02-18 14:30] LABS: INTERNATIONAL NORM RATIO 0.9 (0.9-1.1); Prothrombin Time 10.7 SEC (10.9-12.4)
[2024-02-18] MEDS: bisacodyL 5 MG TABLET.DR 10 MG PO (15:07)
[2024-02-18] MEDS: Acetaminophen 325 MG TABLET 650 MG PO (15:07)
[2024-02-18 15:08] LABS: Alanine Aminotransferase 14 U/L (0-31); Albumin Level 3.8 g/dL (3.5-5.0); Alkaline Phosphatase 160 U/L (39-117); Anion Gap 20 (12-20); Aspartate Amino Transferase 21 U/L (5-31); Bilirubin Total 0.4 mg/dL (0.0-1.0); Blood Urea Nitrogen 68 mg/dL (9-16); Calcium 9.1 mg/dL (8.4-10.2); Carbon Dioxide 27 mmol/L (22-29); Chloride 90 mmol/L (96-108); Creatinine Clr Calc Pharmacy 6.1; Estimated Glomerular Filt Rate 5; Glucose Random 84 mg/dL (60-115); Lipase 15 U/L (8-78); Magnesium 2.1 mg/dL (1.6-2.6); Potassium 5.6 mmol/L (3.3-5.1); Sodium 131 mmol/L (135-145); Total Protein 6.9 g/dL (6.5-8.0)
[2024-02-18] MEDS: Sodium Zirconium Cyclosilicate 10 GM POWD.PACK PO (16:55)
[2024-02-18 17:28] VITALS: BP 112/79; PULSE 88; RESP 16; TEMP 36.6; O2SAT 97
[2024-02-18] MEDS: Metoclopramide HCl 10 MG/2 ML VIAL IM (18:15)
[2024-02-18] MEDS: LORazepam 2 MG/ML VIAL 1 MG IM (18:53)
--- NOTE | 2024-02-18 19:16 | PC.NURSE ---
This RN assumed pt care @ 1900. Pt a&ox4, no signs of distress Pt sitting in bed, eating food. Plan of care ongoing.
[2024-02-18 19:20] VITALS: BP 140/62; PULSE 72; RESP 16; TEMP 36.7; O2SAT 95
--- NOTE | 2024-02-18 19:20 | MHC.EDTECH ---
Patient was given dinner ,ate 100 % of meal and drank 240 ml fluids ,Patient tolerated well ,Provider aware ,Patient had a medium soft bowel movement Provider aware .
[2024-02-18 19:27] VITALS: BP 140/62; PULSE 72; RESP 16; TEMP 36.7; O2SAT 95
== END 2024-02-18 19:30 | disposition home or self-care (01) ==
PROVIDERS: Physician Assistant; Emergency Provider Emergency Medicine; PCP Internal Medicine
DX: K59.00 Constipation, unspecified (principal); R10.9 Unspecified abdominal pain; E87.5 Hyperkalemia; Z79.82 Long term (current) use of aspirin; Z79.899 Other long term (current) drug therapy
CPT/HCPCS: 36415; 74176; 80053; 83690; 83735; 85025; 85610; 96372; 99284; J2060; J2765

== ENCOUNTER 2024-02-22 11:12 | Outpatient (REF) | payer OTHER, SELFPAY | END 2024-02-22 11:13 | disposition home or self-care (01) | LOC: HO.HHCLNP 11:12 | PROVIDERS: Visit Provider Emergency Medicine | DX: F11.20 Opioid dependence, uncomplicated (principal) | CPT/HCPCS: 36415; 80307 ==

== ENCOUNTER 2024-02-27 22:02 | Emergency (ER) | payer OTHER, SELFPAY ==
[2024-02-27 22:11] VITALS: BP 156/76; PULSE 98; O2SAT 96
[2024-02-27 23:07] VITALS: BP 176/78; PULSE 73; RESP 18; TEMP 36; O2SAT 97; BMI 28.9
[2024-02-27 23:24] LABS: MANUAL DIFF FLAG NO
[2024-02-27 23:34] LABS: Basophils Percent Auto 0.2 % (0-2); Eosinophils Absolute Auto 0.3 X10*3/uL (0.0-0.4); Eosinophils Percent Auto 3.1 % (0-4); Hematocrit 30.8 % (37.0-47.0); Imm Gran Abs Auto 0.04 X10*3/uL (0.00-0.03); Imm Gran Pct Auto 0.5 % (0.0-0.4); Lymphocytes Absolute Auto 1.6 X10*3/uL (1.2-4.9); Lymphocytes Percent Auto 18.8 % (20-40); Mean Corpuscular HGB Conc 32.5 g/dl (31.0-35.0); Mean Corpuscular Hemoglobin 32.8 pg (27.0-33.0); Mean Platelet Volume 9.9 fL (9.4-12.3); Monocytes Absolute Auto 0.7 X10*3/uL (0.1-1.2); Monocytes Percent Auto 8.3 % (2-11); Neutrophils Absolute Auto 5.8 x10*3/uL (2.0-8.3); Neutrophils Percent Auto 69.1 % (45-73); Platelet Count 190 X10*3/uL (160-400); Red Blood Count 3.05 X10*6/uL (4.20-5.50); Red Cell Distribution Width 15.1 % (11.0-16.0); White Blood Count 8.3 X10*3/uL (4.8-10.8)
[2024-02-27 23:49] LABS: Alanine Aminotransferase 15 U/L (0-31); Albumin Level 4.1 g/dL (3.5-5.0); Alkaline Phosphatase 169 U/L (39-117); Anion Gap 20 (12-20); Aspartate Amino Transferase 21 U/L (5-31); Bilirubin Total 0.3 mg/dL (0.0-1.0); Blood Urea Nitrogen 42 mg/dL (9-16); Calcium 9.6 mg/dL (8.4-10.2); Carbon Dioxide 28 mmol/L (22-29); Chloride 97 mmol/L (96-108); Estimated Glomerular Filt Rate 5; Glucose Random 135 mg/dL (60-115); Lipase 12 U/L (8-78); Potassium 5.5 mmol/L (3.3-5.1); Sodium 139 mmol/L (135-145); Total Protein 7.6 g/dL (6.5-8.0)
[2024-02-28 01:43] LABS: Glucose, Whole Blood 119 mg/dL (60-115)
--- NOTE | 2024-02-28 02:43 | ED.GENADULT ---
HPI - General Adult General Chief complaint: General Medical Stated complaint: hx of Prolapse rectum, kidney stones Time Seen by Provider: 02/28/24 02:28 Source: patient Mode of arrival: ambulatory Limitations: no limitations History of Present Illness ED Provider: Dr. Sonja Alex HPI narrative: Patient room complaining of a rectal prolapse. Patient states it is chronic. Patient states that sometimes it bleeds, but has not been bleeding recently. Related Data Home Medications ?Medication ?Instructions ?Recorded ?Confirmed buprenorphine 8 mg-naloxone 2 mg 1 film sublingual BID 10/22/20 01/28/24 sublingual film (Suboxone) melatonin 5 mg tablet 5 mg PO BEDTIME PRN Sleep 04/15/21 01/28/24 pantoprazole 40 mg tablet,delayed 40 mg PO DAILY@0630 04/15/21 01/28/24 release aspirin 81 mg tablet,delayed 1 tab PO DAILY 10/11/21 01/28/24 release albuterol sulfate 90 mcg/actuation 2 puff inhalation Q4H PRN wheezing 01/31/22 01/28/24 aerosol inhaler (Ventolin HFA) ondansetron 4 mg disintegrating 4 mg PO BID PRN nausea and vomiting 03/09/22 01/28/24 tablet albuterol sulfate 2.5 mg/3 mL 1 amp inhalation TID PRN Shortness 05/08/22 01/28/24 (0.083 %) solution for nebulization Of Breath isosorbide dinitrate 30 mg tablet 30 mg PO TID 07/10/22 01/28/24 calcium acetate(phosphat bind) 667 1,334 mg PO TIDWM 03/13/23 01/28/24 mg capsule clonidine HCl 0.1 mg tablet 0.1 mg PO BID 03/13/23 01/28/24 lactulose 10 gram/15 mL oral 20 g PO DAILY constipation 03/13/23 01/28/24 solution mirtazapine 15 mg tablet 15 mg PO BEDTIME 03/13/23 01/28/24 acetaminophen 500 mg tablet 500 mg PO TID PRN Pain 10/16/23 01/28/24 diclofenac sodium 1 % topical gel 2 g topical BID PRN Pain 10/16/23 01/28/24 fluticasone propionate 110 1 puff inhalation BID 10/16/23 01/28/24 mcg/actuation HFA aerosol inhaler nicotine 14 mg/24 hr daily 1 patch topical DAILY 10/16/23 01/28/24 transdermal patch polyethylene glycol 3350 17 17 g PO DAILY 10/16/23 01/28/24 gram/dose oral powder carvedilol 25 mg tablet 25 mg PO BID 01/28/24 01/28/24 losartan 50 mg tablet 50 mg PO DAILY 01/28/24 01/28/24 trazodone 50 mg tablet 50 mg PO BEDTIME 01/28/24 01/28/24 Previous Rx's ?Medication ?Instructions ?Recorded diphenhydramine HCl 25 mg capsule 25 mg PO DAILY PRN allergy 04/30/22 (Benadryl) symptoms #30 caps psyllium seed (sugar) oral powder 1 tbsp PO DAILY #1,254 grams 09/26/23 (Metamucil (sugar) oral powder) amlodipine 5 mg tablet 10 mg (2 x 5 mg) PO DAILY #90 tabs 10/17/23 docusate sodium 100 mg capsule 100 mg PO BID #60 caps 12/27/23 (Colace) hydrocortisone 2.5 % topical cream 1 appl NE BID PRN Pain #30 grams 12/27/23 with perineal applicator lidocaine 5 % topical ointment 1 appl topical BEDTIME PRN pain 01/28/24 #30 grams docusate sodium 100 mg capsule 100 mg PO BID #20 caps 02/18/24 (Colace) polyethylene glycol 3350 17 17 g PO BID PRN constipation #238 02/18/24 gram/dose oral powder (Miralax) grams sennosides 8.6 mg tablet (senna) 8.6 mg PO BEDTIME #14 tabs 02/18/24 lidocaine 5 % topical gel 1 ea topical .B.i.d. PRN pain #30 02/28/24 grams polyethylene glycol 3350 17 17 g PO BID #510 grams 02/28/24 gram/dose oral powder (Miralax) Allergies Allergy/AdvReac Type Severity Reaction Status Date / Time No Known Allergies Allergy Verified 02/27/24 23:10 Review of Systems Review of Systems: Constitutional : No Weight loss, No Fever, No Chills, No Night Sweats, No Fatigue, No Malaise ENT/Mouth : No Hearing loss, No Ear Pain, No Nasal Congestion, No Sinus Pain, No Hoarseness, No sore throat, No Rhinorrhea, No Swallowing Difficulty Eyes: No Eye Pain, No Swelling, No Redness, No Foreign Body, No Discharge, No Vision Changes Cardiovascular : No Chest Pain, No SOB, No Dyspnea on Exertion, No Orthopnea, No Edema, No Palpitations Respiratory : No Cough, No Sputum, No Wheezing, No Smoke Exposure, No Dyspnea Gastrointestinal : Complaining of a rectal prolapse, No Nausea, No Vomiting, No Diarrhea, No Constipation, No abdominal Pain, No Hematochezia, No Melena Genitourinary : no irregular bleeding, No Dysuria, No Urinary Frequency, No Hematuria, No Urinary Incontinence, No Urgency, No Flank Pain, No Urinary Flow Changes, No Hesitancy Musculoskeletal : No joint pain, No Myalgias, No Joint Swelling Skin : No Skin Lesions, No rash Neuro : No Weakness, No Numbness, No Paresthesias, No Loss of Consciousness, No Dizziness, No Headache Psych : No Anxiety/Panic, No Depression, No SI/HI/AH/VH, No Social Issues, Heme/Lymph: No Bruising, No Bleeding,No Lymphadenopathy Endocrine : No Polyuria, No Polydipsia, No Temperature Intolerance [facility] Past Medical History Medical History Hemorrhoids that prolapse with straining, but retract spontaneously Hemorrhoids with complication ESRD on dialysis Delirium Sepsis Tachycardia Leukocytosis Fever End stage chronic kidney disease Congestive heart failure with left ventricular dysfunction ESRD (end stage renal disease) Hypertension Pulmonary congestion COVID-19 virus infection Asthma with COPD with exacerbation COVID ESRD (end stage renal disease) Hypertrophic cardiomyopathy Acute exacerbation of chronic obstructive pulmonary disease (COPD) Heart failure with preserved ejection fraction Constipation End stage renal disease on dialysis Ascites Anasarca Ischemic colitis Acute GI bleeding Anemia Dialysis patient, noncompliant Anemia in chronic kidney disease Opioid withdrawal Essential hypertension Diabetes mellitus Surgical History No pertinent past surgical history Family History Family History Other Hypertension Social History Social History Household Members: None Housing: Apartment Do you presently have visiting nurse or other home services: Yes Unable to assess alcohol history related to: Unknown Alcohol intake: current Alcohol intake frequency: does not drink Comment: pt refuses high fall risk protocol Patient Tobacco Use Status: Never used Tobacco Tobacco use type: Cigarette Cigarettes Per Day: 2 Years Smoked: 50 +/- e-Cigarette/Vaping Use: Former Use Second Hand Smoke Exposure: No Substance Use Type: Marijuana Advance Directives: Yes Advance Directives on File: Yes Advance Directives Date on File: 04/17/22 service: No Current occupational status: disabled Physical Exam ED Vital Signs: Vital Signs - 24 hr 02/27/24 23:07 Temperature 96.8 F Pulse Rate 73 Respiratory Rate 18 Blood Pressure 176/78 H Pulse Oximetry 97 Oxygen Delivery Method Room Air BMI result Body Mass Index 28.9 Const Other: Appearance: Alert. Oriented X3. No acute distress. Eyes: Pupils equal, round and reactive to light. ENT: Pharynx normal. Neck: Normal inspection. Neck supple. No lymph nodes noted. No crepitus CVS: Normal heart rate and rhythm. Pulses normal. Normal S1 and S2 Respiratory: No respiratory distress. Breath sounds normal. No Wheezing. No rales Abdomen: Soft and nontender. No rigidity. No distention. Rectal exam: Patient has a prolapse which was easily reducible with very mild pressure. Skin: Skin warm and dry. Normal skin color. Normal skin turgor. Extremities: No lower extremity edema. No Lacerations. No Rash Neuro: Oriented X 3. No motor deficit. No sensory deficit. Moving all extremities. No slurred speech. CN 2 through 12 grossly intact Psych: calm, cooperative, normal affect Medical Decision Making Medical Decision Making MDM Narrative: I discussed with the patient that she needs to make sure that she has soft bowel movements. -patient was given topical lidocaine for pain discomfort. However, I discussed with the patient that she needs to follow-up with surgery. Seems that she was seen approximately [address] Luis. Patient states that almost every day she has a rectal prolapse and would like to proceed with surgery if indicated. -the prolapse was reduced, lidocaine applied. Patient feeling better. Patient ready for discharge Lab Data 02/27/24 23:19 02/27/24 23:19 Labs: Lab Results 02/27/24 02/28/24 Range/Units 23:19 01:38 WBC 8.3 (4.8-10.8) X10*3/uL RBC 3.05 L (4.20-5.50) X10*6/uL Hgb 10.0 L (12.0-16.0) g/dl Hct 30.8 L (37.0-47.0) % MCV 101.0 H (80.0-98.0) fL MCH 32.8 (27.0-33.0) pg MCHC 32.5 (31.0-35.0) g/dl RDW 15.1 (11.0-16.0) % Plt Count 190 (160-400) X10*3/uL MPV 9.9 (9.4-12.3) fL Immature Gran % (Auto) 0.5 H (0.0-0.4) % Neut % (Auto) 69.1 (45-73) % Lymph % (Auto) 18.8 L (20-40) % Ferry % (Auto) 8.3 (2-11) % Eos % (Auto) 3.1 (0-4) % Baso % (Auto) 0.2 (0-2) % Lymph # (Auto) 1.6 (1.2-4.9) X10*3/uL Ferry # (Auto) 0.7 (0.1-1.2) X10*3/uL Eos # (Auto) 0.3 (0.0-0.4) X10*3/uL Baso # (Auto) 0.0 (0.0-0.2) X10*3/uL Abs Immat Gran (auto) 0.04 H (0.00-0.03) X10*3/uL Absolute Neuts (auto) 5.8 (2.0-8.3) x10*3/uL Absolute Nucleated RBC 0.000 (0.0-0.012) X10*3/uL Nucleated RBC % (auto) 0.0 (0.0-0.2) /100WBC Sodium 139 (135-145) mmol/L Potassium 5.5 H (3.3-5.1) mmol/L Chloride 97 (96-108) mmol/L Carbon Dioxide 28 (22-29) mmol/L Anion Gap 20 (12-20) BUN 42 H (9-16) mg/dL Creatinine 7.84 H* (0.5-1.4) mg/dL Estim Creat Clear Calc 6.0 Estimated GFR 5 POC Glucose 119 H (60-115) mg/dL Random Glucose 135 H (60-115) mg/dL Calcium 9.6 (8.4-10.2) mg/dL Total Bilirubin 0.3 (0.0-1.0) mg/dL AST 21 (5-31) U/L ALT 15 (0-31) U/L Alkaline Phosphatase 169 H (39-117) U/L Total Protein 7.6 (6.5-8.0) g/dL Albumin 4.1 (3.5-5.0) g/dL Lipase 12 (8-78) U/L Discharge Plan Discharge Clinical Impression: Rectal prolapse Patient Disposition: Home, Self-Care Instructions: Rectal Prolapse (ED) Additional Instructions: Please follow-up with your primary care physician tomorrow. If you have any worsening or new symptoms, please return to the emergency room or call 911 Prescriptions: New lidocaine 5 % gel 1 ea topical .B.i.d. PRN (Reason: pain) Qty: 30 0RF Rx Instructions: Applying rectal area prior to bowel movements to reduce the amount of pain. Also apply p.r.n. localized pain polyethylene glycol 3350 [Miralax] 17 gram/dose powder 17 g PO BID Qty: 510 0RF No Action docusate sodium [Colace] 100 mg capsule 100 mg PO BID Qty: 60 0RF hydrocortisone 2.5 % cream with perineal applicator 1 appl NE BID PRN (Reason: Pain) Qty: 30 0RF buprenorphine-naloxone [Suboxone] 8-2 mg film 1 film sublingual BID pantoprazole 40 mg Tablet,Delayed Release (Dr/Ec) 40 mg PO DAILY@0630 melatonin 5 mg Tablet 5 mg PO BEDTIME PRN (Reason: Sleep) aspirin 81 mg tablet,delayed release (DR/EC) 1 tab PO DAILY albuterol sulfate [Ventolin HFA] 90 mcg/actuation HFA aerosol inhaler 2 puff INHALATION Q4H PRN (Reason: wheezing) ondansetron 4 mg tablet,disintegrating 4 mg PO BID PRN (Reason: nausea and vomiting) diphenhydramine HCl [Benadryl] 25 mg capsule 25 mg PO DAILY PRN (Reason: allergy symptoms) Qty: 30 0RF albuterol sulfate 2.5 mg /3 mL (0.083 %) solution for nebulization 1 amp inhalation TID PRN (Reason: Shortness Of Breath) isosorbide dinitrate 30 mg Tablet 30 mg PO TID Rx Instructions: allow nitrate-free interval of 12-14 hrs per 24-hr period clonidine HCl 0.1 mg tablet 0.1 mg PO BID mirtazapine 15 mg tablet 15 mg PO BEDTIME calcium acetate(phosphat bind) 667 mg capsule 1,334 mg PO TIDWM lactulose 10 gram/15 mL solution 20 g PO DAILY nicotine 14 mg/24 hr patch 24 hour 1 patch topical DAILY acetaminophen 500 mg tablet 500 mg PO TID PRN (Reason: Pain) polyethylene glycol 3350 17 gram/dose powder 17 g PO DAILY diclofenac sodium 1 % gel 2 g topical BID PRN (Reason: Pain) fluticasone propionate 110 mcg/actuation HFA aerosol inhaler 1 puff INHALATION BID amlodipine 5 mg tablet 10 mg PO DAILY Qty: 90 0RF sennosides [senna] 8.6 mg tablet 8.6 mg PO BEDTIME Qty: 14 0RF docusate sodium [Colace] 100 mg capsule 100 mg PO BID Qty: 20 0RF polyethylene glycol 3350 [Miralax] 17 gram/dose powder 17 g PO BID PRN (Reason: constipation) Qty: 238 0RF Metamucil (sugar) Powder 1 tbsp PO DAILY Qty: 1254 0RF carvedilol 25 mg tablet 25 mg PO BID losartan 50 mg tablet 50 mg PO DAILY trazodone 50 mg tablet 50 mg PO BEDTIME lidocaine 5 % ointment 1 appl topical BEDTIME PRN (Reason: pain) Qty: 30 1RF Print Language: Yemeni
[2024-02-28 03:10] VITALS: BP 149/73; PULSE 80; RESP 18; TEMP 37; O2SAT 98
[2024-02-28 03:11] VITALS: BP 149/73; PULSE 80; RESP 18; TEMP 37; O2SAT 98
== END 2024-02-28 03:15 | disposition home or self-care (01) ==
PROVIDERS: Emergency Provider Emergency Medicine; PCP Internal Medicine
DX: K62.3 Rectal prolapse (principal); E11.22 Type 2 diabetes mellitus with diabetic chronic kidney disease; I13.2 Hypertensive heart and chronic kidney disease with heart failure and with stage 5 chronic kidney disease, or end stage renal disease; I50.9 Heart failure, unspecified; N18.6 End stage renal disease; D63.1 Anemia in chronic kidney disease; Z99.2 Dependence on renal dialysis; Z79.899 Other long term (current) drug therapy
CPT/HCPCS: 36415; 80053; 82947; 83690; 85025; 99283; 99284

== ENCOUNTER 2024-02-29 10:44 | Outpatient (AMB) | payer OTHER, SELFPAY ==
[2024-02-29 10:47] VITALS: BMI 28.9
--- NOTE | 2024-02-29 10:47 | MHC.OFFVIS ---
Vital Signs 02/29/24 10:47 Height 5 ft Weight 148 lb BMI 28.9 Intake Visit Reasons: OV - BL Knee OA - Last Injections 11/15/23 Intake Note: Heidy is a 68 year old female who presents today for a follow up of her bilateral knee OA. She was last seen on 11/15/23 where both of her knees were injected. Allergies No Known Allergies Allergy (Verified 02/29/24 10:48) HPI HPI OV - BL Knee OA - Last Injections 11/15/23: Details: Mis is here today with bilateral knee pain. I have been injecting her bilateral knees. She is aware that her blood sugar has to be checked closely. She complains of discomfort with ambulation bilaterally. She is not a surgical candidate. [facility] Medical History (Updated 02/29/24 @ 11:20 by Abimael Mcgovern MD) Diabetes mellitus Hemorrhoids that prolapse with straining, but retract spontaneously Hemorrhoids with complication ESRD on dialysis Delirium Sepsis Tachycardia Leukocytosis Fever End stage chronic kidney disease Congestive heart failure with left ventricular dysfunction ESRD (end stage renal disease) Hypertension Pulmonary congestion COVID-19 virus infection Asthma with COPD with exacerbation COVID ESRD (end stage renal disease) Hypertrophic cardiomyopathy Acute exacerbation of chronic obstructive pulmonary disease (COPD) Heart failure with preserved ejection fraction Constipation End stage renal disease on dialysis Ascites Anasarca Ischemic colitis Acute GI bleeding Anemia Dialysis patient, noncompliant Anemia in chronic kidney disease Opioid withdrawal Essential hypertension Surgical History No pertinent past surgical history Family History Other Hypertension Social History Household Members: None Housing: Apartment Do you presently have visiting nurse or other home services: Yes Unable to assess alcohol history related to: Unknown Alcohol intake: current Alcohol intake frequency: does not drink Comment: pt refuses high fall risk protocol Patient Tobacco Use Status: Never used Tobacco Tobacco use type: Cigarette Cigarettes Per Day: 2 Years Smoked: 50 +/- e-Cigarette/Vaping Use: Former Use Second Hand Smoke Exposure: No Substance Use Type: Marijuana Advance Directives Date on File: 04/17/22 service: No Current occupational status: disabled Physical Exam Vital Signs: BMI result Body Mass Index 28.9 Extrem Other: 10-120 ROM bilateral kenes TTP medial joint line bilaterally Office Procedures Joint Injection/Aspiration Joint Injection/Aspiration Details: Injected 1 mL of Decadron and 3 mL 1% lidocaine and 3 mL of 0.25% Marcaine. Site was prepped using aseptic technique. Patient tolerated the procedure well. Primary Site: right knee Secondary Site: left knee Approach Used: anterolateral Coding 73555 - Large joint 60941 - Glenohumeral/Tronchanteric Bursa/Intraarticular Procedure code (CPT) selection complete Assessment & Plan Assessment & Plan (1) Primary localized osteoarthritis of knees, bilateral: Code(s): M17.0 - Bilateral primary osteoarthritis of knee Category: Medical Plan: This 68-year-old woman with bilateral knee osteoarthritis. She is definitely not a candidate. I injected bilateral knees today. I warned her of the hyperglycemic effects of steroids. (2) Diabetes mellitus: Code(s): E11.9 - Type 2 diabetes mellitus without complications Category: Medical Plan: Hyperglycemic effects of steroids blind Coding Level of Care Code Est Pt Level 4 (10091) Diagnoses Primary localized osteoarthritis of knees, bilateral M17.0 Diabetes mellitus E11.9 CPT Codes Coding - 35545 Large joint: 23330 - Large joint ([id number]) Coding - Joint 7: 32948 - Glenohumeral/Tronchanteric Bursa/Intraarticular ([id number])
== END 2024-02-29 11:15 | disposition home or self-care (01) ==
LOC: HO.HOS 10:44
PROVIDERS: PCP Internal Medicine; Visit Provider Orthopaedic Surgery
DX: M17.0 Bilateral primary osteoarthritis of knee (principal); E11.9 Type 2 diabetes mellitus without complications
CPT/HCPCS: 20610; 99213

== ENCOUNTER → 2024-02-29 10:44 | Outpatient (BNVA) | payer OTHER, SELFPAY | PROVIDERS: PCP Internal Medicine; Visit Provider Orthopaedic Surgery | DX: M17.0 Bilateral primary osteoarthritis of knee (principal); E11.9 Type 2 diabetes mellitus without complications | CPT/HCPCS: 20610; 99212; J0665; J1100; J2003 ==

== ENCOUNTER 2024-03-07 13:07 | Outpatient (REF) | payer OTHER, SELFPAY | END 2024-03-07 13:08 | disposition home or self-care (01) | LOC: HO.HHCLNP 13:07 | PROVIDERS: Visit Provider Emergency Medicine | DX: F11.20 Opioid dependence, uncomplicated (principal) | CPT/HCPCS: 36415; 80307 ==

== ENCOUNTER 2024-03-12 11:46 | Emergency (ER) | payer OTHER, SELFPAY ==
[2024-03-12 11:59] VITALS: BP 123/60; BP 142/72; PULSE 71; PULSE 80; RESP 16; TEMP 37; O2SAT 97; BMI 28.9
[2024-03-12 12:03] VITALS: BP 123/60; PULSE 71; RESP 16; TEMP 37; O2SAT 97
--- NOTE | 2024-03-12 12:06 | PC.NURSE ---
Pt comes to ED today with c/o rectal pain and no BM x4 days. Pt is mostly [place] speaking, A&OX3, VSS, afebrile. States she feels bloated and pain to rectum is 7/10. Reports she is slotted to surgery to her rectum in 3 months. States Dialysis 3x/week. Breaths and speech are slow, even, and unlabored. Skin is warm and dry. Pt is resting quietly in stretcher with TV.
--- NOTE | 2024-03-12 12:24 | ED_ITS ---
HPI - General Adult General Chief complaint: General Medical Stated complaint: ABD PAIN,NO BR X'S DAYS PER EMS Time Seen by Provider: 03/12/24 12:21 Source: patient Mode of arrival: EMS Limitations: no limitations History of Present Illness HPI narrative: This is a 68 old woman with a past medical history ESRD on hemodialysis (TTS) COPD, CHF hypertension, type 2 diabetes, prolapsing hemorrhoids as who presents for evaluation of constipation. History is obtained utilizing in-person professional [place] interpretation (with [employer]). Patient states that ?the bump? has been coming out from behind when she is having bowel movements. She states that it does go back up. She reports noting blood when wiping. She states no melena or hematochezia. She states associated rectal pain. She states no abdominal pain. She states associated nausea without emesis. She states tolerating oral intake. She reports passing flatus and states they are ?very stinky . She states that she does have surgery scheduled as an outpatient. She states she completed dialysis yesterday. She states that she also has a headache. She states no chest pain or dyspnea. She states no urinary symptoms. She states she has been taking laxatives. Related Data Home Medications ?Medication ?Instructions ?Recorded ?Confirmed buprenorphine 8 mg-naloxone 2 mg 1 film sublingual BID 10/22/20 01/28/24 sublingual film (Suboxone) melatonin 5 mg tablet 5 mg PO BEDTIME PRN Sleep 04/15/21 01/28/24 pantoprazole 40 mg tablet,delayed 40 mg PO DAILY@0630 04/15/21 01/28/24 release aspirin 81 mg tablet,delayed 1 tab PO DAILY 10/11/21 01/28/24 release albuterol sulfate 90 mcg/actuation 2 puff inhalation Q4H PRN wheezing 01/31/22 01/28/24 aerosol inhaler (Ventolin HFA) ondansetron 4 mg disintegrating 4 mg PO BID PRN nausea and vomiting 03/09/22 01/28/24 tablet albuterol sulfate 2.5 mg/3 mL 1 amp inhalation TID PRN Shortness 05/08/22 01/28/24 (0.083 %) solution for nebulization Of Breath isosorbide dinitrate 30 mg tablet 30 mg PO TID 07/10/22 01/28/24 calcium acetate(phosphat bind) 667 1,334 mg PO TIDWM 03/13/23 01/28/24 mg capsule clonidine HCl 0.1 mg tablet 0.1 mg PO BID 03/13/23 01/28/24 lactulose 10 gram/15 mL oral 20 g PO DAILY constipation 03/13/23 01/28/24 solution mirtazapine 15 mg tablet 15 mg PO BEDTIME 03/13/23 01/28/24 acetaminophen 500 mg tablet 500 mg PO TID PRN Pain 10/16/23 01/28/24 diclofenac sodium 1 % topical gel 2 g topical BID PRN Pain 10/16/23 01/28/24 fluticasone propionate 110 1 puff inhalation BID 10/16/23 01/28/24 mcg/actuation HFA aerosol inhaler nicotine 14 mg/24 hr daily 1 patch topical DAILY 10/16/23 01/28/24 transdermal patch polyethylene glycol 3350 17 17 g PO DAILY 10/16/23 01/28/24 gram/dose oral powder carvedilol 25 mg tablet 25 mg PO BID 01/28/24 01/28/24 losartan 50 mg tablet 50 mg PO DAILY 01/28/24 01/28/24 trazodone 50 mg tablet 50 mg PO BEDTIME 01/28/24 01/28/24 Previous Rx's ?Medication ?Instructions ?Recorded diphenhydramine HCl 25 mg capsule 25 mg PO DAILY PRN allergy 04/30/22 (Benadryl) symptoms #30 caps psyllium seed (sugar) oral powder 1 tbsp PO DAILY #1,254 grams 09/26/23 (Metamucil (sugar) oral powder) amlodipine 5 mg tablet 10 mg (2 x 5 mg) PO DAILY #90 tabs 10/17/23 docusate sodium 100 mg capsule 100 mg PO BID #60 caps 12/27/23 (Colace) hydrocortisone 2.5 % topical cream 1 appl [place] BID PRN Pain #30 grams 12/27/23 with perineal applicator lidocaine 5 % topical ointment 1 appl topical BEDTIME PRN pain 01/28/24 #30 grams docusate sodium 100 mg capsule 100 mg PO BID #20 caps 02/18/24 (Colace) polyethylene glycol 3350 17 17 g PO BID PRN constipation #238 02/18/24 gram/dose oral powder (Miralax) grams sennosides 8.6 mg tablet (senna) 8.6 mg PO BEDTIME #14 tabs 02/18/24 lidocaine 5 % topical gel 1 ea topical .B.i.d. PRN pain #30 02/28/24 grams polyethylene glycol 3350 17 17 g PO BID #510 grams 02/28/24 gram/dose oral powder (Miralax) Allergies Allergy/AdvReac Type Severity Reaction Status Date / Time No Known Allergies Allergy Verified 03/12/24 12:02 Review of Systems 2 Review of Systems: ROS as per HPI PMFSH Past Medical History Medical History (Updated 03/12/24 @ 17:26 by Mario Joshua MD) Diabetes mellitus Hemorrhoids that prolapse with straining, but retract spontaneously Hemorrhoids with complication ESRD on dialysis Delirium Sepsis Tachycardia Leukocytosis Fever End stage chronic kidney disease Congestive heart failure with left ventricular dysfunction ESRD (end stage renal disease) Hypertension Pulmonary congestion COVID-19 virus infection Asthma with COPD with exacerbation COVID ESRD (end stage renal disease) Hypertrophic cardiomyopathy Acute exacerbation of chronic obstructive pulmonary disease (COPD) Heart failure with preserved ejection fraction Constipation End stage renal disease on dialysis Ascites Anasarca Ischemic colitis Acute GI bleeding Anemia Dialysis patient, noncompliant Anemia in chronic kidney disease Opioid withdrawal Essential hypertension Surgical History No pertinent past surgical history Family History Family History Other Hypertension Social History Social History Household Members: None Housing: Apartment Do you presently have visiting nurse or other home services: Yes Unable to assess alcohol history related to: Unknown Alcohol intake: current Alcohol intake frequency: does not drink Comment: pt refuses high fall risk protocol Patient Tobacco Use Status: Never used Tobacco Tobacco use type: Cigarette Cigarettes Per Day: 2 Years Smoked: 50 +/- Smoked in Last 30 Days: No e-Cigarette/Vaping Use: Former Use Second Hand Smoke Exposure: No Use of substances other than those prescribed or required for medical reasons: No Substance Use Type: Marijuana Advance Directives: Yes Advance Directives on File: Yes Advance Directives Date on File: 04/17/22 Do you have a plan to hurt others: No Plan service: No Current occupational status: disabled Physical Exam ED Vital Signs: Vital Signs - 24 hr 03/12/24 11:59 03/12/24 12:03 03/12/24 13:24 Temperature 98.6 F 98.6 F Pulse Rate 71 71 Respiratory Rate 16 16 16 Blood Pressure 123/60 123/60 Pulse Oximetry 97 97 Oxygen Delivery Method Room Air Room Air 03/12/24 16:31 Temperature 97.9 F Pulse Rate 65 Respiratory Rate 14 Blood Pressure 178/85 H Pulse Oximetry 97 Oxygen Delivery Method Room Air BMI result Body Mass Index 28.9 Gen: NAD, AOx3 HEENT: NCAT, EOMI, normal conjunctiva CV: RRR Pulm: CTAB, no increased work of breathing GI: Soft, NTND, no rebound, guarding or rigidity Rectal: No external lesions or thrombosed hemorrhoids, no melena or hematochezia, no rectal prolapse, retracted nonbleeding visible pink hemorrhoid (exam chaperoned by patient's bedside RN) Neuro: Grossly non focal Medications Administered Discontinued Medications Generic Name Dose Route Start Last Admin Trade Name Freq PRN Reason Stop Dose Admin Calcium Gluconate 1 gm in 50 mls @ 50 mls/hr 03/12/24 13:23 03/12/24 15:23 Calcium Gluconate IV 03/12/24 14:22 Infused ONCE ONE Infusion Dextrose 250 mls @ 750 mls/hr 03/12/24 14:00 03/12/24 14:44 D10 IV 03/12/24 14:19 Infused ONCE ONE Infusion Insulin Human Regular 5 unit 03/12/24 15:09 03/12/24 16:08 Insulin Regular, Human 100 Unit/Ml 10 Ml Vial IVPUSH 03/12/24 15:10 5 unit ONCE ONE Administration Lactulose 20 gm 03/12/24 14:45 03/12/24 15:45 Lactulose 20 Gm/30 Ml Solution PO 03/12/24 14:46 20 gm ONCE ONE Administration Lidocaine HCl 15 ml 03/12/24 13:06 03/12/24 14:09 Lidocaine Hcl Viscous 2 % 15 Ml Solution MUCOUS MEM 03/12/24 13:07 15 ml ONCE ONE Administration Morphine Sulfate 4 mg 03/12/24 13:02 03/12/24 13:24 Morphine Sulfate 4 Mg/Ml Cartridge IVPUSH 03/12/24 13:03 4 mg ONCE ONE Administration Protocol Ondansetron HCl 4 mg 03/12/24 13:02 03/12/24 13:24 Ondansetron Hcl 4 Mg/2 Ml Vial IVPUSH 03/12/24 13:03 4 mg ONCE ONE Administration Sodium Biphosphate/Sodium Phosphate 133 ml 03/12/24 14:46 03/12/24 15:45 Sodium Phosphate,Rabun-Dibasic 133 Ml Enema [place] 03/12/24 14:47 133 ml ONCE ONE Administration Medical Decision Making Medical Decision Making MDM Narrative: Differential diagnosis includes, but is not limited to hemorrhoids, rectal prolapse, constipation. Patient is afebrile and hemodynamically stable on room air. Exam is benign and reassuring. There is no evidence of rectal or hemorrhoidal prolapse. Patient is provided supportive care for constipation with lactulose and enema. She subsequently has a bowel movement. She is tolerating oral intake without nausea or vomiting. She reports ongoing ability to pass flatus. For these reasons I have very low clinical suspicion for bowel obstruction or any other acute intraabdominal process. I considered CT imaging of the abdomen/pelvis, but abdominal examination is reassuring as is her below blood work. Thus, CT imaging is not obtained. I independently reviewed and interpreted the patient's labs, which are notable for stable chronic anemia with hemoglobin 10.0 (previous 10.0), hyperkalemia of 6.3 (which improves to 5.0 after a calcium, dextrose and insulin) and creatinine is 6.52/6.68 (consistent with the patient's known end-stage renal disease for which she receives hemodialysis). LFTs and lipase are unremarkable. I independently reviewed in the patient's EKG, as below which is reassuring demonstrates no electrocardiographic findings consistent with hyperkalemia. Regardless, she was provided calcium, dextrose and insulin for treatment of hyperkalemia. 1508 - patient states that she is no longer having any pain. 1723 - On re-examination, patient is well-appearing and in no acute distress. ?Patient states symptoms have resolved. ?There is no indication for further emergent evaluation in this otherwise well-appearing patient as above. ?Patient is provided written and verbal instructions, educational materials, recommendations for outpatient follow-up, strict return precautions and teach back is performed. ?Patient states understanding and agreement with plan of care. ?Patient is discharged home in stable and improved condition. Critical Care Time: A total of 45 minutes spent in direct patient care with coordinating critical resuscitation, procedures, reviewing records, discussing with consultants, reviewing labs, and/or managing patient. Professional reception centre manager (Beto) is used to review patient's medical evaluation, verbal discharge instructions, recommendations for outpatient follow-up, and return precautions. The patient stated her understanding and agreement. All questions answered. Admission/Observation Consideration of admission/observation: Escalation of care including admission/observation considered Lab Data MDM Lab Attestation statement: I reviewed the patient's lab results. 03/12/24 12:33 03/12/24 16:41 Labs: Lab Results 03/12/24 03/12/24 03/12/24 Range/Units 12:33 15:08 16:41 WBC 7.5 (4.8-10.8) X10*3/uL RBC 2.95 L (4.20-5.50) X10*6/uL Hgb 10.0 L (12.0-16.0) g/dl Hct 29.8 L (37.0-47.0) % MCV 101.0 H (80.0-98.0) fL MCH 33.9 H (27.0-33.0) pg MCHC 33.6 (31.0-35.0) g/dl RDW 15.4 (11.0-16.0) % Plt Count 222 (160-400) X10*3/uL MPV 10.7 (9.4-12.3) fL Immature Gran % (Auto) 0.4 (0.0-0.4) % Neut % (Auto) 73.9 H (45-73) % Lymph % (Auto) 14.6 L (20-40) % Rabun % (Auto) 7.6 (2-11) % Eos % (Auto) 3.1 (0-4) % Baso % (Auto) 0.4 (0-2) % Lymph # (Auto) 1.1 L (1.2-4.9) X10*3/uL Rabun # (Auto) 0.6 (0.1-1.2) X10*3/uL Eos # (Auto) 0.2 (0.0-0.4) X10*3/uL Baso # (Auto) 0.0 (0.0-0.2) X10*3/uL Abs Immat Gran (auto) 0.03 (0.00-0.03) X10*3/uL Absolute Neuts (auto) 5.5 (2.0-8.3) x10*3/uL Absolute Nucleated RBC 0.000 (0.0-0.012) X10*3/uL Nucleated RBC % (auto) 0.0 (0.0-0.2) /100WBC Sodium 137 137 (135-145) mmol/L Potassium 6.3 H* 5.0 D (3.3-5.1) mmol/L Chloride 94 L 92 L (96-108) mmol/L Carbon Dioxide 31 H 31 H (22-29) mmol/L Anion Gap 18 19 (12-20) BUN 42 H 45 H (9-16) mg/dL Creatinine 6.52 H* 6.68 H* (0.5-1.4) mg/dL Estim Creat Clear Calc 7.7 7.6 Estimated GFR 6 6 POC Glucose 227 H (60-115) mg/dL Random Glucose 125 H 135 H (60-115) mg/dL Calcium 10.0 10.7 H D (8.4-10.2) mg/dL Total Bilirubin 0.3 (0.0-1.0) mg/dL Direct Bilirubin 0.1 (0.0-0.5) mg/dL AST 36 H (5-31) U/L ALT 17 (0-31) U/L Alkaline Phosphatase 170 H (39-117) U/L Total Protein 7.3 (6.5-8.0) g/dL Albumin 3.9 (3.5-5.0) g/dL Lipase 14 (8-78) U/L Independent Interpretation I performed an independent interpretation of an: EKG Interpretation: I independently reviewed and interpreted the patient's EKG, which demonstrates sinus rhythm at 70 beats per minute, [place] 184, QRS 90, QTC 438, no peaked T waves, no STEMI Discharge Plan Discharge Clinical Impression: Acute hyperkalemia, Chronic rectal pain Patient Disposition: Home, Self-Care Additional Instructions: Fue evaluado en la sukhi de emergencias. Knott evaluaci?n fue en general muy tranquilizadora. Le trataron con analg?sicos y analg?sicos. Knott an?lisis de sherman mostr? potasio elevado, vinnie esto mejor? despu?s de administrarle el medicamento. Aseg?rese de ir a knott di?lisis ma?jim. Jumana un seguimiento con knott m?dico de atenci?n primaria en 1 semana. Contin?e con los laxantes que le recetaron anteriormente. Regrese a la sukhi de emergencias si tiene alguna inquietud nueva, incluidos, entre otros, dolor intenso, sherman por el recto, dolor en el pecho, dificultad para respirar, incapacidad para comer o beber o incapacidad para expulsar gases o defecar. Prescriptions: No Action docusate sodium [Colace] 100 mg capsule 100 mg PO BID Qty: 60 0RF hydrocortisone 2.5 % cream with perineal applicator 1 appl [place] BID PRN (Reason: Pain) Qty: 30 0RF buprenorphine-naloxone [Suboxone] 8-2 mg film 1 film sublingual BID pantoprazole 40 mg Tablet,Delayed Release (Dr/Ec) 40 mg PO DAILY@0630 melatonin 5 mg Tablet 5 mg PO BEDTIME PRN (Reason: Sleep) aspirin 81 mg tablet,delayed release (DR/EC) 1 tab PO DAILY albuterol sulfate [Ventolin HFA] 90 mcg/actuation HFA aerosol inhaler 2 puff INHALATION Q4H PRN (Reason: wheezing) ondansetron 4 mg tablet,disintegrating 4 mg PO BID PRN (Reason: nausea and vomiting) diphenhydramine HCl [Benadryl] 25 mg capsule 25 mg PO DAILY PRN (Reason: allergy symptoms) Qty: 30 0RF albuterol sulfate 2.5 mg /3 mL (0.083 %) solution for nebulization 1 amp inhalation TID PRN (Reason: Shortness Of Breath) isosorbide dinitrate 30 mg Tablet 30 mg PO TID Rx Instructions: allow nitrate-free interval of 12-14 hrs per 24-hr period lidocaine 5 % gel 1 ea topical .B.i.d. PRN (Reason: pain) Qty: 30 0RF Rx Instructions: Applying rectal area prior to bowel movements to reduce the amount of pain. Also apply p.r.n. localized pain polyethylene glycol 3350 [Miralax] 17 gram/dose powder 17 g PO BID Qty: 510 0RF clonidine HCl 0.1 mg tablet 0.1 mg PO BID mirtazapine 15 mg tablet 15 mg PO BEDTIME calcium acetate(phosphat bind) 667 mg capsule 1,334 mg PO TIDWM lactulose 10 gram/15 mL solution 20 g PO DAILY nicotine 14 mg/24 hr patch 24 hour 1 patch topical DAILY acetaminophen 500 mg tablet 500 mg PO TID PRN (Reason: Pain) polyethylene glycol 3350 17 gram/dose powder 17 g PO DAILY diclofenac sodium 1 % gel 2 g topical BID PRN (Reason: Pain) fluticasone propionate 110 mcg/actuation HFA aerosol inhaler 1 puff INHALATION BID amlodipine 5 mg tablet 10 mg PO DAILY Qty: 90 0RF sennosides [senna] 8.6 mg tablet 8.6 mg PO BEDTIME Qty: 14 0RF docusate sodium [Colace] 100 mg capsule 100 mg PO BID Qty: 20 0RF polyethylene glycol 3350 [Miralax] 17 gram/dose powder 17 g PO BID PRN (Reason: constipation) Qty: 238 0RF Metamucil (sugar) Powder 1 tbsp PO DAILY Qty: 1254 0RF carvedilol 25 mg tablet 25 mg PO BID losartan 50 mg tablet 50 mg PO DAILY trazodone 50 mg tablet 50 mg PO BEDTIME lidocaine 5 % ointment 1 appl topical BEDTIME PRN (Reason: pain) Qty: 30 1RF Print Language: [place]
[2024-03-12 12:38] LABS: MANUAL DIFF FLAG NO
[2024-03-12 12:47] LABS: Basophils Percent Auto 0.4 % (0-2); Eosinophils Absolute Auto 0.2 X10*3/uL (0.0-0.4); Eosinophils Percent Auto 3.1 % (0-4); Hematocrit 29.8 % (37.0-47.0); Imm Gran Abs Auto 0.03 X10*3/uL (0.00-0.03); Imm Gran Pct Auto 0.4 % (0.0-0.4); Lymphocytes Absolute Auto 1.1 X10*3/uL (1.2-4.9); Lymphocytes Percent Auto 14.6 % (20-40); Mean Corpuscular HGB Conc 33.6 g/dl (31.0-35.0); Mean Corpuscular Hemoglobin 33.9 pg (27.0-33.0); Mean Platelet Volume 10.7 fL (9.4-12.3); Monocytes Absolute Auto 0.6 X10*3/uL (0.1-1.2); Monocytes Percent Auto 7.6 % (2-11); Neutrophils Absolute Auto 5.5 x10*3/uL (2.0-8.3); Neutrophils Percent Auto 73.9 % (45-73); Platelet Count 222 X10*3/uL (160-400); Red Blood Count 2.95 X10*6/uL (4.20-5.50); Red Cell Distribution Width 15.4 % (11.0-16.0); White Blood Count 7.5 X10*3/uL (4.8-10.8)
[2024-03-12 12:57] LABS: Alanine Aminotransferase 17 U/L (0-31); Albumin Level 3.9 g/dL (3.5-5.0); Alkaline Phosphatase 170 U/L (39-117); Anion Gap 18 (12-20); Aspartate Amino Transferase 36 U/L (5-31); Bilirubin Direct 0.1 mg/dL (0.0-0.5); Bilirubin Total 0.3 mg/dL (0.0-1.0); Blood Urea Nitrogen 42 mg/dL (9-16); Carbon Dioxide 31 mmol/L (22-29); Chloride 94 mmol/L (96-108); Glucose Random 125 mg/dL (60-115); Lipase 14 U/L (8-78); Sodium 137 mmol/L (135-145); Total Protein 7.3 g/dL (6.5-8.0)
[2024-03-12 13:07] LABS: Creatinine Clr Calc Pharmacy 7.7; Estimated Glomerular Filt Rate 6; Potassium 6.3 mmol/L (3.3-5.1)
--- NOTE | 2024-03-12 13:23 | ECG_ITS ---
Test Reason : ELEVATED POTASSIUM Blood Pressure : / mmHG Vent. Rate : 070 BPM Atrial Rate : 070 BPM P-R Int : 184 ms QRS Dur : 090 ms QT Int : 406 ms P-R-T Axes : 070 -12 058 degrees QTc Int : 438 ms Normal sinus rhythm Possible Left atrial enlargement Borderline ECG Referred By: Mario Joshua Electronically Signed By:Charan Hankins
[2024-03-12 13:24] VITALS: RESP 16
[2024-03-12] MEDS: Morphine Sulfate 4 MG/ML CARTRIDGE IVPUSH (13:24)
[2024-03-12] MEDS: ondansetron HCL 4 MG/2 ML VIAL IVPUSH (13:24)
[2024-03-12] MEDS: Lidocaine HCl Viscous 2 % 15 ML SOLUTION MUCOUS MEM (14:09)
[2024-03-12] MEDS: Calcium Gluconate/NaCl,Iso-Osm 1 GM/50 ML PLAST..BAG IV (14:23)
[2024-03-12] MEDS: Dextrose 10 % 250 ML 750 ML IV (14:24)
[2024-03-12 15:12] LABS: Glucose, Whole Blood 227 mg/dL (60-115)
[2024-03-12] MEDS: Lactulose 20 GM/30 ML SOLUTION PO (15:45)
[2024-03-12] MEDS: Sodium Phosphate,Mono-Dibasic 133 ML ENEMA PR (15:45)
[2024-03-12] MEDS: Insulin Regular, Human 100 UNIT/ML 10 ML VIAL IVPUSH (16:08)
[2024-03-12 16:31] VITALS: BP 178/85; PULSE 65; RESP 14; TEMP 36.6; O2SAT 97
[2024-03-12 17:05] LABS: Anion Gap 19 (12-20); Blood Urea Nitrogen 45 mg/dL (9-16); Calcium 10.7 mg/dL (8.4-10.2); Carbon Dioxide 31 mmol/L (22-29); Chloride 92 mmol/L (96-108); Creatinine Clr Calc Pharmacy 7.6; Estimated Glomerular Filt Rate 6; Glucose Random 135 mg/dL (60-115); Sodium 137 mmol/L (135-145)
[2024-03-12 17:55] VITALS: BP 00/00; PULSE 0; RESP 0; TEMP -17.7; TEMP 0
== END 2024-03-12 17:56 | disposition home or self-care (01) ==
PROVIDERS: Emergency Provider Emergency Medicine; PCP Internal Medicine
DX: E87.5 Hyperkalemia (principal); G89.29 Other chronic pain; K62.89 Other specified diseases of anus and rectum; R51.9 Headache, unspecified; E11.22 Type 2 diabetes mellitus with diabetic chronic kidney disease; I13.2 Hypertensive heart and chronic kidney disease with heart failure and with stage 5 chronic kidney disease, or end stage renal disease; I50.9 Heart failure, unspecified; N18.6 End stage renal disease; Z99.2 Dependence on renal dialysis; Z79.82 Long term (current) use of aspirin; Z79.899 Other long term (current) drug therapy
CPT/HCPCS: 36415; 80048; 80076; 82947; 83690; 85025; 93005; 96365; 96375; 99284; 99285; J0613; J2270; J2405

== ENCOUNTER → 2024-03-12 13:23 | Outpatient (BNV) | payer OTHER, SELFPAY | PROVIDERS: Emergency Provider Emergency Medicine; PCP Internal Medicine; Visit Provider Internal Medicine Cardiovascular Disease | DX: R94.31 Abnormal electrocardiogram [ECG] [EKG] (principal); E87.5 Hyperkalemia | CPT/HCPCS: 93010 ==

== ENCOUNTER 2024-04-07 15:31 | Outpatient (REF) | payer OTHER, SELFPAY ==
--- NOTE | ~2024-04-07 | XR_ITS ---
EXAMINATION: XR CHEST CLINICAL INFORMATION: cough x 3 days in a patient w/ h/o COPD COMPARISON: 12/09/2023 TECHNIQUE: Frontal and lateral views of the chest were obtained. FINDINGS: Right-sided central venous catheter is unchanged in position, terminating at the caval atrial junction. The cardiomediastinal silhouette is stable. Central bronchovascular markings appear somewhat more prominent than on the prior examination. No focal pneumonia is detected. There are no pleural effusions. XR/XR chest 2V IMPRESSION: Increased central bronchovascular markings, perhaps on the basis of bronchitis or reactive airways disease, or developing congestive heart failure. Electronically signed by: Nicolas Araujo MD 04/08/2024 08:54 AM REGI
== END 2024-04-07 15:32 | disposition home or self-care (01) ==
LOC: HO.HHCX 15:31
PROVIDERS: Visit Provider Internal Medicine
DX: R05.1 Acute cough (principal); J44.9 Chronic obstructive pulmonary disease, unspecified
CPT/HCPCS: 71046

== ENCOUNTER 2024-04-11 13:47 | Outpatient (REF) | payer OTHER, SELFPAY | END 2024-04-11 13:48 | disposition home or self-care (01) | LOC: HO.HHCLNP 13:47 | PROVIDERS: Visit Provider Emergency Medicine | DX: F11.20 Opioid dependence, uncomplicated (principal) | CPT/HCPCS: 36415; 80307 ==

== ENCOUNTER 2024-04-12 11:42 | Emergency (ER) | payer OTHER, SELFPAY ==
[2024-04-12 11:46] VITALS: BP 180/90; PULSE 74; O2SAT 99
--- NOTE | 2024-04-12 11:48 | ED.RECABL ---
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 Per dialysis nurse patient had hgb 4.2 and she did not receive dialysis and was sent here. Patient reports she has known hemorrhoids/prolapse and is having surgery May at [facility] [place]. She has occasional rectal bleeding. About a week ago she had 5-7 days of daily rectal bleeding. Now resolved. No hematuria, hematemesis, abdominal pain. She has chronic constipation but did have a BM 2 days ago. Has not had black or bloody stools. Patient reports feeling weak and tired for the last week. Related Data Home Medications ?Medication ?Instructions ?Recorded ?Confirmed buprenorphine 8 mg-naloxone 2 mg 1 film sublingual BID 10/22/20 01/28/24 sublingual film (Suboxone) melatonin 5 mg tablet 5 mg PO BEDTIME PRN Sleep 04/15/21 01/28/24 pantoprazole 40 mg tablet,delayed 40 mg PO DAILY@0630 04/15/21 01/28/24 release aspirin 81 mg tablet,delayed 1 tab PO DAILY 10/11/21 01/28/24 release albuterol sulfate 90 mcg/actuation 2 puff inhalation Q4H PRN wheezing 01/31/22 01/28/24 aerosol inhaler (Ventolin HFA) ondansetron 4 mg disintegrating 4 mg PO BID PRN nausea and vomiting 03/09/22 01/28/24 tablet albuterol sulfate 2.5 mg/3 mL 1 amp inhalation TID PRN Shortness 05/08/22 01/28/24 (0.083 %) solution for nebulization Of Breath isosorbide dinitrate 30 mg tablet 30 mg PO TID 07/10/22 01/28/24 calcium acetate(phosphat bind) 667 1,334 mg PO TIDWM 03/13/23 01/28/24 mg capsule clonidine HCl 0.1 mg tablet 0.1 mg PO BID 03/13/23 01/28/24 lactulose 10 gram/15 mL oral 20 g PO DAILY constipation 03/13/23 01/28/24 solution mirtazapine 15 mg tablet 15 mg PO BEDTIME 03/13/23 01/28/24 acetaminophen 500 mg tablet 500 mg PO TID PRN Pain 10/16/23 01/28/24 diclofenac sodium 1 % topical gel 2 g topical BID PRN Pain 10/16/23 01/28/24 fluticasone propionate 110 1 puff inhalation BID 10/16/23 01/28/24 mcg/actuation HFA aerosol inhaler nicotine 14 mg/24 hr daily 1 patch topical DAILY 10/16/23 01/28/24 transdermal patch polyethylene glycol 3350 17 17 g PO DAILY 10/16/23 01/28/24 gram/dose oral powder carvedilol 25 mg tablet 25 mg PO BID 01/28/24 01/28/24 losartan 50 mg tablet 50 mg PO DAILY 01/28/24 01/28/24 trazodone 50 mg tablet 50 mg PO BEDTIME 01/28/24 01/28/24 Previous Rx's ?Medication ?Instructions ?Recorded diphenhydramine HCl 25 mg capsule 25 mg PO DAILY PRN allergy 04/30/22 (Benadryl) symptoms #30 caps psyllium seed (sugar) oral powder 1 tbsp PO DAILY #1,254 grams 09/26/23 (Metamucil (sugar) oral powder) amlodipine 5 mg tablet 10 mg (2 x 5 mg) PO DAILY #90 tabs 10/17/23 docusate sodium 100 mg capsule 100 mg PO BID #60 caps 12/27/23 (Colace) hydrocortisone 2.5 % topical cream 1 appl [place] BID PRN Pain #30 grams 12/27/23 with perineal applicator lidocaine 5 % topical ointment 1 appl topical BEDTIME PRN pain 01/28/24 #30 grams docusate sodium 100 mg capsule 100 mg PO BID #20 caps 02/18/24 (Colace) polyethylene glycol 3350 17 17 g PO BID PRN constipation #238 02/18/24 gram/dose oral powder (Miralax) grams sennosides 8.6 mg tablet (senna) 8.6 mg PO BEDTIME #14 tabs 02/18/24 lidocaine 5 % topical gel 1 ea topical .B.i.d. PRN pain #30 02/28/24 grams polyethylene glycol 3350 17 17 g PO BID #510 grams 02/28/24 gram/dose oral powder (Miralax) Allergies Allergy/AdvReac Type Severity Reaction Status Date / Time No Known Allergies Allergy Verified 04/12/24 11:54 Review of Systems Review of Systems: Yes all other systems are reviewed and are negative Constitutional: Constitutional: Reports no additional constitutional complaints, Denies body ache(s), Denies chills, Denies fever(s), Denies headache(s) and Reports weakness Eyes: Eyes: Reports no additional eye complaints and Denies change in vision ENT: Reports system reviewed and no additional complaints, except as documented, Denies dizziness, Denies headache(s), Denies nasal congestion, Denies nasal discharge and Denies neck pain Cardiovascular: Cardiovascular: Reports no additional cardiovascular complaints, Denies chest pain, Denies leg edema and Denies dyspnea Respiratory: Respiratory: Reports no additional respiratory complaints, Denies cough and Denies dyspnea Gastrointestinal: Gastrointestinal: Reports no additional gastrointestinal complaints, Denies abdominal pain, Denies melena, Denies hematochezia, Denies diarrhea, Denies nausea, Denies vomiting and Denies hematemesis Genitourinary: Genitourinary: Reports no additional female genitourinary complaints and Denies urinary incontinence Musculoskeletal: Musculoskeletal: Reports no additional musculoskeletal complaints, Denies back pain, Denies arthralgias, Denies joint swelling, Denies neck pain, Denies numbness and Denies tingling Integumentary/Breasts: Skin/Breast: Reports system reviewed and no additional complaints, except as docu and Denies rash Neurologic: Reports system reviewed and no additional complaints, except as documented, Denies Abnormal speech present, Denies dizziness, Denies headache(s), Denies numbness, Denies tingling and Reports weakness PMFSH Past Medical History Attestation statement: The following information was validated with the patient. Source: old records reviewed and nursing notes reviewed Medical History Diabetes mellitus Hemorrhoids that prolapse with straining, but retract spontaneously Hemorrhoids with complication ESRD on dialysis Delirium Sepsis Tachycardia Leukocytosis Fever End stage chronic kidney disease Congestive heart failure with left ventricular dysfunction ESRD (end stage renal disease) Hypertension Pulmonary congestion COVID-19 virus infection Asthma with COPD with exacerbation COVID ESRD (end stage renal disease) Hypertrophic cardiomyopathy Acute exacerbation of chronic obstructive pulmonary disease (COPD) Heart failure with preserved ejection fraction Constipation End stage renal disease on dialysis Ascites Anasarca Ischemic colitis Acute GI bleeding Anemia Dialysis patient, noncompliant Anemia in chronic kidney disease Opioid withdrawal Essential hypertension Surgical History No pertinent past surgical history Family History Family History Other Hypertension Social History Social History Household Members: None Housing: Apartment Do you presently have visiting nurse or other home services: Yes Unable to assess alcohol history related to: Unknown Alcohol intake: current Alcohol intake frequency: does not drink Comment: pt refuses high fall risk protocol Patient Tobacco Use Status: Never used Tobacco Tobacco use type: Cigarette Cigarettes Per Day: 2 Years Smoked: 50 +/- Smoked in Last 30 Days: No e-Cigarette/Vaping Use: Former Use Second Hand Smoke Exposure: No Use of substances other than those prescribed or required for medical reasons: No Substance Use Type: Marijuana Advance Directives: No Advance Directives Information Provided: No Advance Directives Date on File: 04/17/22 service: No Current occupational status: disabled Physical Exam Vital Signs: Vital Signs: Last Vital Signs Temp 97.5 F 04/12/24 13:31 Pulse 73 04/12/24 13:31 Resp 18 04/12/24 13:31 BP 151/79 H 04/12/24 13:31 Pulse Ox 96 04/12/24 13:31 O2 Del Method Room Air 04/12/24 13:31 BMI result Body Mass Index 32.4 Const: General: cooperative, healthy appearing, comfortable and no acute distress Orientation/consciousness: patient oriented x3 Limitations: no limitations HEENT: Head: Yes normal to inspection Ears: hearing grossly normal bilaterally General nose exam: Normal external nose present Face and sinus: Yes normal facial exam Mouth: Normal oral and palatal mucosa present Throat: Yes posterior oropharynx normal Eyes: General: appearance normal, both eyes and all related structures Pupils: Equal, round and reactive pupils present Neck: Neck: Yes normal visual inspection Chest: Chest palpation & inspection: normal inspection of the chest Resp: Effort & Inspection: normal respiratory effort Auscultation: clear to auscultation bilaterally Cardio: Rate: regular rate Rhythm: regular rhythm Peripheral pulses: Peripheral pulses 2+ throughout GI: Other: No black or bloody stool on rectal exam +hemorrhoid Inspection: Yes normal to inspection Palpation (GI): Soft to palpation and nontender Auscultation: normal bowel sounds Rectal Exam - Female: visual inspection normal Back/Spine/Pelvis: Thoracic/Lumbar Spine: thoracic and lumbar spine normal to inspection Skin: General skin exam: no rashes or lesions noted Neuro: General: patient oriented x3, no focal motor deficits and normal sensation to monofilament Cranial nerves: Yes Equal, round and reactive pupils present Cognition (Neuro): normal cognition Speech: No Abnormal speech present Gait exam (Neuro): Normal gait present Motor exam (neuro): 5/5 motor strength present throughout Extrem: General: Yes normal to inspection Course Reevaluation(s) Reevaluation #1: 1320-hemoglobin 9.8. This seems to be patient's baseline. Unsure if previous hemoglobin checked at dialysis was an error. We did obtain a 2nd hemoglobin here which was 9.3 and so I believe that ours is more accurate. Patient has no active signs of bleeding. She likely has anemia of chronic disease. Patient has elevated potassium in the setting of end-stage renal disease on dialysis. She has no EKG changes consistent with hyperkalemia. She likely would benefit from having her scheduled dialysis. We did speak to her dialysis center and they can not see her today but can see her tomorrow morning to have her dialysis. While she was in the emergency room she received 10g of Lokelma, 5 units of IV insulin, and 1 g of calcium gluconate. She was able to eat and drink before leaving Medications Administered Discontinued Medications Generic Name Dose Route Start Last Admin Trade Name Freq PRN Reason Stop Dose Admin Calcium Gluconate 1 gm in 50 mls @ 50 mls/hr 04/12/24 13:17 04/12/24 14:20 Calcium Gluconate IV 04/12/24 14:16 Infused ONCE ONE Infusion Insulin Human Regular 5 unit 04/12/24 13:17 04/12/24 13:26 Insulin Regular, Human 100 Unit/Ml 10 Ml Vial IVPUSH 04/12/24 13:18 5 unit ONCE ONE Administration Sodium Zirconium Cyclosilicate 5 gm 04/12/24 13:06 04/12/24 13:14 Sodium Zirconium Cyclosilicate 5 Gm Powd.Pack PO 04/12/24 13:07 5 gm ONCE ONE Administration Sodium Zirconium Cyclosilicate 5 gm 04/12/24 13:18 04/12/24 13:25 Sodium Zirconium Cyclosilicate 5 Gm Powd.Pack PO 04/12/24 13:19 5 gm ONCE ONE Administration Medical Decision Making Medical Decision Making MDM Narrative: 69 yo female with history of ESRD on HD (T, , Sun) presents to the ER with complaints of abnormal labs. Per dialysis nurse patient had hgb 4.2 and she did not receive dialysis and was sent here. Patient reports she has known hemorrhoids/prolapse and is having surgery May at [facility] [place]. She has occasional rectal bleeding. About a week ago she had 5-7 days of daily rectal bleeding. Now resolved. No hematuria, hematemesis, abdominal pain. She has chronic constipation but did have a BM 2 days ago. Has not had black or bloody stools.? Patient reports feeling weak and tired for the last week.? Abdomen soft/nontender. +BS. NO bleeding noted on rectal exam. Will obtain labs including T&S, EKG Blood consent signed Differential Diagnosis Differential Diagnoses: The differential diagnosis associated with the presentation includes Anemia of chronic disease, GIB Admission/Observation Consideration of admission/observation: Escalation of care including admission/observation considered see course of care Lab Data [facility] Lab Attestation statement: I reviewed the patient's lab results. 04/12/24 13:13 04/12/24 12:14 Labs: Lab Results 04/12/24 04/12/24 04/12/24 Range/Units 12:14 12:18 13:13 WBC 9.2 8.7 (4.8-10.8) X10*3/uL RBC 2.95 L 2.78 L (4.20-5.50) X10*6/uL Hgb 9.8 L 9.3 L (12.0-16.0) g/dl Hct 29.9 L 28.3 L (37.0-47.0) % MCV 101.4 H 101.8 H (80.0-98.0) fL MCH 33.2 H 33.5 H (27.0-33.0) pg MCHC 32.8 32.9 (31.0-35.0) g/dl RDW 15.5 15.5 (11.0-16.0) % Plt Count 248 232 (160-400) X10*3/uL MPV 9.8 9.4 (9.4-12.3) fL Immature Gran % (Auto) 0.3 0.3 (0.0-0.4) % Neut % (Auto) 75.2 H 74.1 H (45-73) % Lymph % (Auto) 13.5 L 14.2 L (20-40) % [place] % (Auto) 7.6 7.5 (2-11) % Eos % (Auto) 3.2 3.7 (0-4) % Baso % (Auto) 0.2 0.2 (0-2) % Lymph # (Auto) 1.2 1.2 (1.2-4.9) X10*3/uL [place] # (Auto) 0.7 0.7 (0.1-1.2) X10*3/uL Eos # (Auto) 0.3 0.3 (0.0-0.4) X10*3/uL Baso # (Auto) 0.0 0.0 (0.0-0.2) X10*3/uL Abs Immat Gran (auto) 0.03 0.03 (0.00-0.03) X10*3/uL Absolute Neuts (auto) 6.9 6.4 (2.0-8.3) x10*3/uL Absolute Nucleated RBC 0.000 0.000 (0.0-0.012) X10*3/uL Nucleated RBC % (auto) 0.0 0.0 (0.0-0.2) /100WBC PT 11.0 (10.9-12.4) SEC INR 0.9 (0.9-1.1) Sodium 133 L (135-145) mmol/L Potassium 6.4 H* D (3.3-5.1) mmol/L Chloride 94 L (96-108) mmol/L Carbon Dioxide 24 (22-29) mmol/L Anion Gap 21 H (12-20) BUN 57 H (9-16) mg/dL Creatinine 7.78 H* (0.5-1.4) mg/dL Estim Creat Clear Calc 6.2 Estimated GFR 5 POC Glucose (60-115) mg/dL Random Glucose 132 H (60-115) mg/dL Calcium 9.9 D (8.4-10.2) mg/dL Total Bilirubin 0.3 (0.0-1.0) mg/dL Direct Bilirubin 0.1 (0.0-0.5) mg/dL AST 34 H (5-31) U/L ALT 18 (0-31) U/L Alkaline Phosphatase 113 (39-117) U/L Total Protein 7.5 (6.5-8.0) g/dL Albumin 3.8 (3.5-5.0) g/dL Blood Type O Positive Antibody Screen NEGATIVE 04/12/24 Range/Units 13:25 WBC (4.8-10.8) X10*3/uL RBC (4.20-5.50) X10*6/uL Hgb (12.0-16.0) g/dl Hct (37.0-47.0) % MCV (80.0-98.0) fL MCH (27.0-33.0) pg MCHC (31.0-35.0) g/dl RDW (11.0-16.0) % Plt Count (160-400) X10*3/uL MPV (9.4-12.3) fL Immature Gran % (Auto) (0.0-0.4) % Neut % (Auto) (45-73) % Lymph % (Auto) (20-40) % [place] % (Auto) (2-11) % Eos % (Auto) (0-4) % Baso % (Auto) (0-2) % Lymph # (Auto) (1.2-4.9) X10*3/uL [place] # (Auto) (0.1-1.2) X10*3/uL Eos # (Auto) (0.0-0.4) X10*3/uL Baso # (Auto) (0.0-0.2) X10*3/uL Abs Immat Gran (auto) (0.00-0.03) X10*3/uL Absolute Neuts (auto) (2.0-8.3) x10*3/uL Absolute Nucleated RBC (0.0-0.012) X10*3/uL Nucleated RBC % (auto) (0.0-0.2) /100WBC PT (10.9-12.4) SEC INR (0.9-1.1) Sodium (135-145) mmol/L Potassium (3.3-5.1) mmol/L Chloride (96-108) mmol/L Carbon Dioxide (22-29) mmol/L Anion Gap (12-20) BUN (9-16) mg/dL Creatinine (0.5-1.4) mg/dL Estim Creat Clear Calc Estimated GFR POC Glucose 180 H (60-115) mg/dL Random Glucose (60-115) mg/dL Calcium (8.4-10.2) mg/dL Total Bilirubin (0.0-1.0) mg/dL Direct Bilirubin (0.0-0.5) mg/dL AST (5-31) U/L ALT (0-31) U/L Alkaline Phosphatase (39-117) U/L Total Protein (6.5-8.0) g/dL Albumin (3.5-5.0) g/dL Blood Type Antibody Screen Independent Interpretation I performed an independent interpretation of an: EKG Interpretation: I independently viewed the EKG which shows normal sinus rhythm with a rate of 75, normal [place], normal QRS, normal QT Independent Historian Clinical information obtained from an independent historian. History obtained from or confirmed by: EMS Tests considered The following testing was considered but not selected: no focal abdominal pain or concern for GIB requiring CT imaging Discharge Plan Discharge Clinical Impression: Acute hyperkalemia Patient Disposition: Home, Self-Care Instructions: Hyperkalemia (ED) Additional Instructions: We called her dialysis and you have dialysis scheduled for tomorrow. Do not miss this appointment Continue your home medication Return for worsening symptoms Prescriptions: No Action docusate sodium [Colace] 100 mg capsule 100 mg PO BID Qty: 60 0RF hydrocortisone 2.5 % cream with perineal applicator 1 appl [place] BID PRN (Reason: Pain) Qty: 30 0RF buprenorphine-naloxone [Suboxone] 8-2 mg film 1 film sublingual BID pantoprazole 40 mg Tablet,Delayed Release (Dr/Ec) 40 mg PO DAILY@0630 melatonin 5 mg Tablet 5 mg PO BEDTIME PRN (Reason: Sleep) aspirin 81 mg tablet,delayed release (DR/EC) 1 tab PO DAILY albuterol sulfate [Ventolin HFA] 90 mcg/actuation HFA aerosol inhaler 2 puff INHALATION Q4H PRN (Reason: wheezing) ondansetron 4 mg tablet,disintegrating 4 mg PO BID PRN (Reason: nausea and vomiting) diphenhydramine HCl [Benadryl] 25 mg capsule 25 mg PO DAILY PRN (Reason: allergy symptoms) Qty: 30 0RF albuterol sulfate 2.5 mg /3 mL (0.083 %) solution for nebulization 1 amp inhalation TID PRN (Reason: Shortness Of Breath) isosorbide dinitrate 30 mg Tablet 30 mg PO TID Rx Instructions: allow nitrate-free interval of 12-14 hrs per 24-hr period lidocaine 5 % gel 1 ea topical .B.i.d. PRN (Reason: pain) Qty: 30 0RF Rx Instructions: Applying rectal area prior to bowel movements to reduce the amount of pain. Also apply p.r.n. localized pain polyethylene glycol 3350 [Miralax] 17 gram/dose powder 17 g PO BID Qty: 510 0RF clonidine HCl 0.1 mg tablet 0.1 mg PO BID mirtazapine 15 mg tablet 15 mg PO BEDTIME calcium acetate(phosphat bind) 667 mg capsule 1,334 mg PO TIDWM lactulose 10 gram/15 mL solution 20 g PO DAILY nicotine 14 mg/24 hr patch 24 hour 1 patch topical DAILY acetaminophen 500 mg tablet 500 mg PO TID PRN (Reason: Pain) polyethylene glycol 3350 17 gram/dose powder 17 g PO DAILY diclofenac sodium 1 % gel 2 g topical BID PRN (Reason: Pain) fluticasone propionate 110 mcg/actuation HFA aerosol inhaler 1 puff INHALATION BID amlodipine 5 mg tablet 10 mg PO DAILY Qty: 90 0RF sennosides [senna] 8.6 mg tablet 8.6 mg PO BEDTIME Qty: 14 0RF docusate sodium [Colace] 100 mg capsule 100 mg PO BID Qty: 20 0RF polyethylene glycol 3350 [Miralax] 17 gram/dose powder 17 g PO BID PRN (Reason: constipation) Qty: 238 0RF Metamucil (sugar) Powder 1 tbsp PO DAILY Qty: 1254 0RF carvedilol 25 mg tablet 25 mg PO BID losartan 50 mg tablet 50 mg PO DAILY trazodone 50 mg tablet 50 mg PO BEDTIME lidocaine 5 % ointment 1 appl topical BEDTIME PRN (Reason: pain) Qty: 30 1RF Referrals: Sammy Vicente MD [Primary Care Provider] - 1 week Print Language: Estonian
--- NOTE | 2024-04-12 11:51 | ECG_ITS ---
Test Reason : WEAKNESS Blood Pressure : / mmHG Vent. Rate : 075 BPM Atrial Rate : 075 BPM P-R Int : 188 ms QRS Dur : 086 ms QT Int : 392 ms P-R-T Axes : 061 -17 036 degrees QTc Int : 437 ms Normal sinus rhythm Possible Left atrial enlargement Borderline ECG Referred By: Francisca Don Electronically Signed By:CRISTIAN REMY MD
[2024-04-12 11:52] VITALS: BP 141/71; PULSE 77; RESP 18; TEMP 36.7; O2SAT 96; BMI 32.4
[2024-04-12 12:17] LABS: MANUAL DIFF FLAG NO
[2024-04-12 12:19] LABS: Basophils Percent Auto 0.2 % (0-2); Eosinophils Absolute Auto 0.3 X10*3/uL (0.0-0.4); Eosinophils Percent Auto 3.2 % (0-4); Hematocrit 29.9 % (37.0-47.0); Hemoglobin 9.8 g/dl (12.0-16.0); Imm Gran Abs Auto 0.03 X10*3/uL (0.00-0.03); Imm Gran Pct Auto 0.3 % (0.0-0.4); Lymphocytes Absolute Auto 1.2 X10*3/uL (1.2-4.9); Lymphocytes Percent Auto 13.5 % (20-40); Mean Corpuscular HGB Conc 32.8 g/dl (31.0-35.0); Mean Corpuscular Hemoglobin 33.2 pg (27.0-33.0); Mean Corpuscular Volume 101.4 fL (80.0-98.0); Mean Platelet Volume 9.8 fL (9.4-12.3); Monocytes Absolute Auto 0.7 X10*3/uL (0.1-1.2); Monocytes Percent Auto 7.6 % (2-11); Neutrophils Absolute Auto 6.9 x10*3/uL (2.0-8.3); Neutrophils Percent Auto 75.2 % (45-73); Platelet Count 248 X10*3/uL (160-400); Red Blood Count 2.95 X10*6/uL (4.20-5.50); Red Cell Distribution Width 15.5 % (11.0-16.0); White Blood Count 9.2 X10*3/uL (4.8-10.8)
[2024-04-12 12:25] LABS: INTERNATIONAL NORM RATIO 0.9 (0.9-1.1)
--- NOTE | 2024-04-12 12:30 | PC.NURSE ---
Pt presents to ED via EMS from dialysis. Reports she was sent here due to low hemoglobin at dialysis of 4.2, did not get her dialysis today. Last dialysis was of this past week. Does report rectal bleeding 1 week ago. Alert and oriented, breathing even and unlabored, skin warm and dry. NSR on bedside monitor. Denies SOB or CP.
[2024-04-12 13:01] LABS: Alanine Aminotransferase 18 U/L (0-31); Albumin Level 3.8 g/dL (3.5-5.0); Alkaline Phosphatase 113 U/L (39-117); Anion Gap 21 (12-20); Aspartate Amino Transferase 34 U/L (5-31); Bilirubin Direct 0.1 mg/dL (0.0-0.5); Bilirubin Total 0.3 mg/dL (0.0-1.0); Blood Urea Nitrogen 57 mg/dL (9-16); Calcium 9.9 mg/dL (8.4-10.2); Carbon Dioxide 24 mmol/L (22-29); Chloride 94 mmol/L (96-108); Creatinine Clr Calc Pharmacy 6.2; Estimated Glomerular Filt Rate 5; Glucose Random 132 mg/dL (60-115); Potassium 6.4 mmol/L (3.3-5.1); Sodium 133 mmol/L (135-145); Total Protein 7.5 g/dL (6.5-8.0)
[2024-04-12] MEDS: Sodium Zirconium Cyclosilicate 5 GM POWD.PACK PO ×2 (13:14→13:25)
[2024-04-12 13:16] LABS: MANUAL DIFF FLAG NO
[2024-04-12 13:17] LABS: Basophils Percent Auto 0.2 % (0-2); Eosinophils Absolute Auto 0.3 X10*3/uL (0.0-0.4); Eosinophils Percent Auto 3.7 % (0-4); Hematocrit 28.3 % (37.0-47.0); Hemoglobin 9.3 g/dl (12.0-16.0); Imm Gran Abs Auto 0.03 X10*3/uL (0.00-0.03); Imm Gran Pct Auto 0.3 % (0.0-0.4); Lymphocytes Absolute Auto 1.2 X10*3/uL (1.2-4.9); Lymphocytes Percent Auto 14.2 % (20-40); Mean Corpuscular HGB Conc 32.9 g/dl (31.0-35.0); Mean Corpuscular Hemoglobin 33.5 pg (27.0-33.0); Mean Corpuscular Volume 101.8 fL (80.0-98.0); Mean Platelet Volume 9.4 fL (9.4-12.3); Monocytes Absolute Auto 0.7 X10*3/uL (0.1-1.2); Monocytes Percent Auto 7.5 % (2-11); Neutrophils Absolute Auto 6.4 x10*3/uL (2.0-8.3); Neutrophils Percent Auto 74.1 % (45-73); Platelet Count 232 X10*3/uL (160-400); Red Blood Count 2.78 X10*6/uL (4.20-5.50); Red Cell Distribution Width 15.5 % (11.0-16.0); White Blood Count 8.7 X10*3/uL (4.8-10.8)
[2024-04-12] MEDS: Insulin Regular, Human 100 UNIT/ML 10 ML VIAL IVPUSH (13:26)
[2024-04-12] MEDS: Calcium Gluconate/NaCl,Iso-Osm 1 GM/50 ML PLAST..BAG IV (13:28)
[2024-04-12 13:29] LABS: Glucose, Whole Blood 180 mg/dL (60-115)
[2024-04-12 13:31] VITALS: BP 151/79; PULSE 73; RESP 18; TEMP 36.4; O2SAT 96
[2024-04-12 14:43] VITALS: BP 151/79; PULSE 73; RESP 18; TEMP 36.4; O2SAT 96
== END 2024-04-12 14:43 | disposition home or self-care (01) ==
PROVIDERS: Nurse Practitioner Family; Emergency Provider Emergency Medicine; PCP Internal Medicine
DX: E87.5 Hyperkalemia (principal); R53.1 Weakness; E11.22 Type 2 diabetes mellitus with diabetic chronic kidney disease; I13.2 Hypertensive heart and chronic kidney disease with heart failure and with stage 5 chronic kidney disease, or end stage renal disease; I50.9 Heart failure, unspecified; N18.6 End stage renal disease; Z99.2 Dependence on renal dialysis; J45.909 Unspecified asthma, uncomplicated
CPT/HCPCS: 36415; 80048; 80076; 82947; 85025; 85610; 86850; 86900; 86901; 93005; 96365; 96375; 99285; J0613

== ENCOUNTER → 2024-04-12 11:51 | Outpatient (BNV) | payer OTHER, SELFPAY | PROVIDERS: Emergency Provider Emergency Medicine; PCP Internal Medicine; Visit Provider Internal Medicine Cardiovascular Disease | DX: R53.1 Weakness (principal) | CPT/HCPCS: 93010 ==

== ENCOUNTER 2024-04-19 07:12 | Inpatient (IN) | payer OTHER, SELFPAY ==
[2024-04-19] VITALS (42 sets, daily range): BP systolic 120–231; BP diastolic 25–144; PULSE 53–95; RESP 12–27; TEMP 35.8–37.2; O2SAT 74–100; BMI 32.9; BMI 29.0
--- NOTE | ~2024-04-19 | XR_ITS ---
EXAMINATION: XR CHEST CLINICAL INFORMATION: dyspnea hypoxia COMPARISON: Chest x-ray on 04/07/2024 TECHNIQUE: Frontal view of the chest was obtained. FINDINGS: The cardia mediastinal silhouette is normal. There is a right chest tunneled dialysis catheter terminating at the cavoatrial junction. There is acute on chronic interstitial disease and mild increased pulmonary vascularity. No pleural effusions. XR/XR chest 1V IMPRESSION: Acute on chronic interstitial disease. Electronically signed by: Maris Dias MD 04/19/2024 08:47 AM [facility]
--- NOTE | 2024-04-19 07:22 | ECG_ITS ---
Test Reason : dyspnea Blood Pressure : / mmHG Vent. Rate : 076 BPM Atrial Rate : 076 BPM P-R Int : 208 ms QRS Dur : 090 ms QT Int : 414 ms P-R-T Axes : 054 -19 030 degrees QTc Int : 465 ms Normal sinus rhythm Possible Left atrial enlargement Left ventricular hypertrophy with repolarization abnormality ( R in aVL , Jona product ) Abnormal ECG When compared with ECG of 12-APR-2024 12:05, No significant change was found Referred By: Bushra Vallejo Electronically Signed By:SALVADOR SARABIA
[2024-04-19] MEDS: Nitroglycerin/D5W 100 MG/250 ML INFUS..BTL IVCONT (07:36)
--- NOTE | 2024-04-19 07:42 | ED_ITS ---
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 She cannot tell us much about HD yesterday. She denies new cough, sputum, fevers, chest pain or headache. She states her breathing became acutely worse last night. EMS found her 74% on RA - placed her on CPAP, started nitro paste and 2L nitro for BPs > 200s/100s. Patient on arrival has JVD, 1-2+ pitting edema of both legs, rales throughout her lungs. She cannot tell me about weight gain. MD elicited complaint: shortness of breath Pertinent past history: COPD and congestive heart failure Onset (ago): day(s) (last night) Context: other Timing: progressively worsening Severity: severe Exacerbating factors: lying flat, exertion and movement Relieving factors: oxygen, rest and upright position Known history of: COPD and congestive heart failure Associated symptoms: cough, orthopnea and sense of impending doom Treatment prior to arrival: oxygen, NIPPV and nitroglycerin Related Data Home Medications ?Medication ?Instructions ?Recorded ?Confirmed buprenorphine 8 mg-naloxone 2 mg 1 film sublingual BID 10/22/20 01/28/24 sublingual film (Suboxone) melatonin 5 mg tablet 5 mg PO BEDTIME PRN Sleep 04/15/21 01/28/24 pantoprazole 40 mg tablet,delayed 40 mg PO DAILY@0630 04/15/21 01/28/24 release aspirin 81 mg tablet,delayed 1 tab PO DAILY 10/11/21 01/28/24 release albuterol sulfate 90 mcg/actuation 2 puff inhalation Q4H PRN wheezing 01/31/22 01/28/24 aerosol inhaler (Ventolin HFA) ondansetron 4 mg disintegrating 4 mg PO BID PRN nausea and vomiting 03/09/22 01/28/24 tablet albuterol sulfate 2.5 mg/3 mL 1 amp inhalation TID PRN Shortness 05/08/22 01/28/24 (0.083 %) solution for nebulization Of Breath isosorbide dinitrate 30 mg tablet 30 mg PO TID 07/10/22 01/28/24 calcium acetate(phosphat bind) 667 1,334 mg PO TIDWM 03/13/23 01/28/24 mg capsule clonidine HCl 0.1 mg tablet 0.1 mg PO BID 03/13/23 01/28/24 lactulose 10 gram/15 mL oral 20 g PO DAILY constipation 03/13/23 01/28/24 solution mirtazapine 15 mg tablet 15 mg PO BEDTIME 03/13/23 01/28/24 acetaminophen 500 mg tablet 500 mg PO TID PRN Pain 10/16/23 01/28/24 diclofenac sodium 1 % topical gel 2 g topical BID PRN Pain 10/16/23 01/28/24 fluticasone propionate 110 1 puff inhalation BID 10/16/23 01/28/24 mcg/actuation HFA aerosol inhaler nicotine 14 mg/24 hr daily 1 patch topical DAILY 10/16/23 01/28/24 transdermal patch polyethylene glycol 3350 17 17 g PO DAILY 10/16/23 01/28/24 gram/dose oral powder carvedilol 25 mg tablet 25 mg PO BID 01/28/24 01/28/24 losartan 50 mg tablet 50 mg PO DAILY 01/28/24 01/28/24 trazodone 50 mg tablet 50 mg PO BEDTIME 01/28/24 01/28/24 Previous Rx's ?Medication ?Instructions ?Recorded diphenhydramine HCl 25 mg capsule 25 mg PO DAILY PRN allergy 04/30/22 (Benadryl) symptoms #30 caps psyllium seed (sugar) oral powder 1 tbsp PO DAILY #1,254 grams 09/26/23 (Metamucil (sugar) oral powder) amlodipine 5 mg tablet 10 mg (2 x 5 mg) PO DAILY #90 tabs 10/17/23 docusate sodium 100 mg capsule 100 mg PO BID #60 caps 12/27/23 (Colace) hydrocortisone 2.5 % topical cream 1 appl DE BID PRN Pain #30 grams 12/27/23 with perineal applicator lidocaine 5 % topical ointment 1 appl topical BEDTIME PRN pain 01/28/24 #30 grams docusate sodium 100 mg capsule 100 mg PO BID #20 caps 02/18/24 (Colace) polyethylene glycol 3350 17 17 g PO BID PRN constipation #238 02/18/24 gram/dose oral powder (Miralax) grams sennosides 8.6 mg tablet (senna) 8.6 mg PO BEDTIME #14 tabs 02/18/24 lidocaine 5 % topical gel 1 ea topical .B.i.d. PRN pain #30 02/28/24 grams polyethylene glycol 3350 17 17 g PO BID #510 grams 02/28/24 gram/dose oral powder (Miralax) Allergies Allergy/AdvReac Type Severity Reaction Status Date / Time No Known Allergies Allergy Unverified 04/19/24 07:19 Review of Systems 2 Review of Systems: Constitutional : No Fever, No Chills ENT/Mouth : No sore throat, No Rhinorrhea, No Swallowing Difficulty Eyes: No Eye Pain, No Swelling, No Redness Cardiovascular : No Chest Pain, positive SOB, pos Orthopnea, positive Edema Respiratory : No Cough, No Sputum, No Wheezing, positive dyspnea Gastrointestinal : No Nausea, No Vomiting, No Diarrhea, No abdominal Pain, No Hematochezia, No Melena Genitourinary : No Dysuria, No Urinary Frequency, No Hematuria Musculoskeletal : No joint pain, No Myalgias Skin : No Skin Lesions, No rash Neuro : No Weakness, No Numbness, No Dizziness, No Headache All other systems reviewed and are negative PMFSH Past Medical History Attestation statement: The following information was validated with the patient. Source: old records reviewed Medical History Diabetes mellitus Hemorrhoids that prolapse with straining, but retract spontaneously Hemorrhoids with complication ESRD on dialysis Delirium Sepsis Tachycardia Leukocytosis Fever End stage chronic kidney disease Congestive heart failure with left ventricular dysfunction ESRD (end stage renal disease) Hypertension Pulmonary congestion COVID-19 virus infection Asthma with COPD with exacerbation COVID ESRD (end stage renal disease) Hypertrophic cardiomyopathy Acute exacerbation of chronic obstructive pulmonary disease (COPD) Heart failure with preserved ejection fraction Constipation End stage renal disease on dialysis Ascites Anasarca Ischemic colitis Acute GI bleeding Anemia Dialysis patient, noncompliant Anemia in chronic kidney disease Opioid withdrawal Essential hypertension Surgical History No pertinent past surgical history Family History Family History Other Hypertension Social History Social History Household Members: None Housing: Apartment Do you presently have visiting nurse or other home services: Yes Unable to assess alcohol history related to: Unknown Alcohol intake: former Comment: pt refuses high fall risk protocol Patient Tobacco Use Status: Never used Tobacco Tobacco use type: Cigarette Cigarettes Per Day: 2 Years Smoked: 50 +/- Smoked in Last 30 Days: No e-Cigarette/Vaping Use: Former Use Second Hand Smoke Exposure: No Use of substances other than those prescribed or required for medical reasons: No Substance Use Type: Marijuana Advance Directives: Yes Advance Directives on File: Yes Advance Directives Date on File: 04/17/22 service: No Current occupational status: disabled Physical Exam 2 Vital Signs: Vital Signs: Last Vital Signs Temp 98.9 F 04/19/24 08:35 Pulse 53 04/19/24 09:00 Resp 18 04/19/24 09:00 BP 190/93 H 04/19/24 09:00 Pulse Ox 100 04/19/24 09:00 O2 Del Method CPAP 04/19/24 09:00 BMI result Body Mass Index 32.9 Appearance: Alert. Oriented X3. Moderate acute distress. Eyes: Pupils equal, round and reactive to light. ENT: Pharynx normal. Neck: Normal inspection. Neck supple. CVS: tachycardic heart rate and rhythm. Pulses normal. Respiratory: Mod respiratory distress - labored retractions with single words. Breath sounds wet with rales throughout Abdomen: Soft and nontender. but large and ?ascites Skin: Skin warm and dry. pale skin color. Normal skin turgor. Extremities: 1-2+ pitting edema bilateral lower extremity edema. Neuro: Oriented X 3. No motor deficit. No sensory deficit. Course Course Course Narrative: WBC count 17 at this time possible infection suspected last time she had leukocytosis was 2022 and she had MSSA bacteremia - I have ordered abx 803am Reevaluation(s) Reevaluation #1: K 6.1 - ordered calcium on arrival, added 5 of lokelma, HCO3 and albuterol Reevaluation #2: message sent to [facility] 628gm aware she needs emergent HD tried to take her off for lokelma but she cannot tolerat it and rapidly desats Dr. Eisenberg aware will admit for emergent HD and given continued CPAP as well as nitro gtt currently at 60 Medications Administered Generic Name Dose Route Start Last Admin Trade Name Freq PRN Reason Stop Dose Admin Nitroglycerin/Dextrose 100 mg in 250 mls @ 0 mls/hr 04/19/24 07:30 04/19/24 08:16 Nitroglycerin/D5w IVCONT 60 mcg/min .Q0M PHAN 9 mls/hr Titration Protocol Per Protocol Discontinued Medications Generic Name Dose Route Start Last Admin Trade Name Freq PRN Reason Stop Dose Admin Albuterol Sulfate 5 mg 04/19/24 07:59 04/19/24 08:33 Albuterol Sulfate (0.083%) 2.5 Mg/3 Ml Vial.Neb INHALE 04/19/24 08:00 5 mg ONCE ONE Administration Ceftriaxone Sodium 1 gm 04/19/24 08:09 04/19/24 08:15 Ceftriaxone Sodium 1 Gm Vial IVPUSH 04/19/24 08:10 1 gm ONCE ONE Administration Calcium Gluconate 2 gm in 100 mls @ 400 mls/hr 04/19/24 07:47 04/19/24 08:22 Calcium Gluconate IV 04/19/24 08:01 Infused ONCE ONE Infusion Sodium Bicarbonate 50 meq 04/19/24 07:59 04/19/24 08:11 Sodium Bicarbonate 8.4% 50 Meq/50 Ml Syringe IVPUSH 04/19/24 08:00 50 meq ONCE ONE Administration Sodium Zirconium Cyclosilicate 5 gm 04/19/24 07:59 04/19/24 09:03 Sodium Zirconium Cyclosilicate 5 Gm Powd.Pack PO 04/19/24 08:00 Not Given ONCE ONE Medical Decision Making Medical Decision Making MDM Narrative: 69 yo female with PMH of ESRD T S - 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 Planned admit suspect she will need emergent HD today. Differential Diagnosis Differential Diagnoses: The differential diagnosis associated with the presentation includes edematous with JVD and rales - suspect volume overload denies infectious symptoms PNA less likely no wheezing low suspicion for COPD given HTN and signs of volume overload Admission/Observation Consideration of admission/observation: Escalation of care including admission/observation considered admit given need for emergent HD, volume overload, HTN emergency Consult Healthcare Provider Management of the patient was discussed with: Customer Operations Intern (both ICU and renal involved) Lab Data MDM Lab Attestation statement: I reviewed the patient's lab results. 04/19/24 07:34 04/19/24 07:34 Labs: Lab Results 04/19/24 04/19/24 04/19/24 Range/Units 07:34 08:01 08:04 WBC 17.7 H (4.8-10.8) X10*3/uL RBC 3.37 L D (4.20-5.50) X10*6/uL Hgb 11.1 L (12.0-16.0) g/dl Hct 34.0 L D (37.0-47.0) % MCV 100.9 H (80.0-98.0) fL MCH 32.9 (27.0-33.0) pg MCHC 32.6 (31.0-35.0) g/dl RDW 14.8 (11.0-16.0) % Plt Count 262 (160-400) X10*3/uL MPV 10.6 (9.4-12.3) fL Immature Gran % (Auto) 0.5 H (0.0-0.4) % Neut % (Auto) 88.8 H (45-73) % Lymph % (Auto) 5.8 L (20-40) % Kerr % (Auto) 2.6 (2-11) % Eos % (Auto) 2.0 (0-4) % Baso % (Auto) 0.3 (0-2) % Lymph # (Auto) 1.0 L (1.2-4.9) X10*3/uL Kerr # (Auto) 0.5 (0.1-1.2) X10*3/uL Eos # (Auto) 0.4 (0.0-0.4) X10*3/uL Baso # (Auto) 0.1 (0.0-0.2) X10*3/uL Abs Immat Gran (auto) 0.08 H (0.00-0.03) X10*3/uL Absolute Neuts (auto) 15.7 H (2.0-8.3) x10*3/uL Absolute Nucleated RBC 0.000 (0.0-0.012) X10*3/uL Nucleated RBC % (auto) 0.0 (0.0-0.2) /100WBC Smear Tech's Comments VERIFIED VBG pH 7.39 (7.32-7.43) VBG pCO2 40 mmHg VBG pO2 190 mmHg VBG HCO3 25 (22-26) mmol/L VBG O2 Saturation 99.0 % VBG Base Excess 0.1 mmol/L Sodium 134 L (135-145) mmol/L Potassium 6.1 H* (3.3-5.1) mmol/L Chloride 91 L (96-108) mmol/L Carbon Dioxide 25 (22-29) mmol/L Anion Gap 24 H (12-20) BUN 60 H (9-16) mg/dL Creatinine 9.54 H* (0.5-1.4) mg/dL Estim Creat Clear Calc 5.5 Estimated GFR 4 Random Glucose 243 H (60-115) mg/dL Lactic Acid 0.7 (0.5-2.0) mmol/L Calcium 9.8 (8.4-10.2) mg/dL Magnesium 2.6 (1.6-2.6) mg/dL Total Bilirubin 0.4 (0.0-1.0) mg/dL Direct Bilirubin 0.1 (0.0-0.5) mg/dL AST 33 H (5-31) U/L ALT 27 (0-31) U/L Alkaline Phosphatase 160 H (39-117) U/L Troponin I High Sens 31.0 H (<3.5-17.0) ng/L B-Natriuretic Peptide 4619 H (<100) pg/mL Total Protein 8.3 H (6.5-8.0) g/dL Albumin 4.2 (3.5-5.0) g/dL Influenza Type A (PCR) NEGATIVE (Negative) Influenza Type B (PCR) NEGATIVE (Negative) RSV RNA Qual (PCR) NEGATIVE (Negative) SARS-CoV-2 RNA (RT-PCR) NEGATIVE (Negative) Independent Interpretation I performed an independent interpretation of an: EKG and Plain X-Ray (edema) Interpretation: Rate: 76 Rhythm: NSR with 1st degree AVB [place]: left LVH Normal P waves. 1st degree AVB Normal QRS complex. ST T wave : no MELLISA qTC: 465 prior studies: no acute ischemia The study has been interpreted contemporaneously by me. . Radiology Impression Discussion of test interpretation with radiology: I have reviewed the radiologist's reading. Independent Historian Clinical information obtained from an independent historian. History obtained from or confirmed by: EMS External Record Review External record reviewed: Inpatient record and Outpatient record Critical Care Time Critical Care Time Critical Care Time: Yes Total Critical Care Time: 60 Attestation: NIPPV, HTN emergency, hyperk treatment, consults and admissions I attest to this time spent taking care of the patient Discharge Plan Discharge Clinical Impression: Acute hypoxemic respiratory failure, Acute hyperkalemia, Hypertensive emergency, Volume overload, Elevated WBC count Patient Disposition: Admitted As Inpatient Prescriptions: No Action docusate sodium [Colace] 100 mg capsule 100 mg PO BID Qty: 60 0RF hydrocortisone 2.5 % cream with perineal applicator 1 appl DE BID PRN (Reason: Pain) Qty: 30 0RF buprenorphine-naloxone [Suboxone] 8-2 mg film 1 film sublingual BID pantoprazole 40 mg Tablet,Delayed Release (Dr/Ec) 40 mg PO DAILY@0630 melatonin 5 mg Tablet 5 mg PO BEDTIME PRN (Reason: Sleep) aspirin 81 mg tablet,delayed release (DR/EC) 1 tab PO DAILY albuterol sulfate [Ventolin HFA] 90 mcg/actuation HFA aerosol inhaler 2 puff INHALATION Q4H PRN (Reason: wheezing) ondansetron 4 mg tablet,disintegrating 4 mg PO BID PRN (Reason: nausea and vomiting) diphenhydramine HCl [Benadryl] 25 mg capsule 25 mg PO DAILY PRN (Reason: allergy symptoms) Qty: 30 0RF albuterol sulfate 2.5 mg /3 mL (0.083 %) solution for nebulization 1 amp inhalation TID PRN (Reason: Shortness Of Breath) isosorbide dinitrate 30 mg Tablet 30 mg PO TID Rx Instructions: allow nitrate-free interval of 12-14 hrs per 24-hr period lidocaine 5 % gel 1 ea topical .B.i.d. PRN (Reason: pain) Qty: 30 0RF Rx Instructions: Applying rectal area prior to bowel movements to reduce the amount of pain. Also apply p.r.n. localized pain polyethylene glycol 3350 [Miralax] 17 gram/dose powder 17 g PO BID Qty: 510 0RF clonidine HCl 0.1 mg tablet 0.1 mg PO BID mirtazapine 15 mg tablet 15 mg PO BEDTIME calcium acetate(phosphat bind) 667 mg capsule 1,334 mg PO TIDWM lactulose 10 gram/15 mL solution 20 g PO DAILY nicotine 14 mg/24 hr patch 24 hour 1 patch topical DAILY acetaminophen 500 mg tablet 500 mg PO TID PRN (Reason: Pain) polyethylene glycol 3350 17 gram/dose powder 17 g PO DAILY diclofenac sodium 1 % gel 2 g topical BID PRN (Reason: Pain) fluticasone propionate 110 mcg/actuation HFA aerosol inhaler 1 puff INHALATION BID amlodipine 5 mg tablet 10 mg PO DAILY Qty: 90 0RF sennosides [senna] 8.6 mg tablet 8.6 mg PO BEDTIME Qty: 14 0RF docusate sodium [Colace] 100 mg capsule 100 mg PO BID Qty: 20 0RF polyethylene glycol 3350 [Miralax] 17 gram/dose powder 17 g PO BID PRN (Reason: constipation) Qty: 238 0RF Metamucil (sugar) Powder 1 tbsp PO DAILY Qty: 1254 0RF carvedilol 25 mg tablet 25 mg PO BID losartan 50 mg tablet 50 mg PO DAILY trazodone 50 mg tablet 50 mg PO BEDTIME lidocaine 5 % ointment 1 appl topical BEDTIME PRN (Reason: pain) Qty: 30 1RF Print Language: Citizen [place]
[2024-04-19 07:49] LABS: Basophils Absolute Auto 0.1 X10*3/uL (0.0-0.2); Basophils Percent Auto 0.3 % (0-2); Eosinophils Absolute Auto 0.4 X10*3/uL (0.0-0.4); Hemoglobin 11.1 g/dl (12.0-16.0); Imm Gran Abs Auto 0.08 X10*3/uL (0.00-0.03); Imm Gran Pct Auto 0.5 % (0.0-0.4); Lymphocytes Percent Auto 5.8 % (20-40); MANUAL DIFF FLAG SCAN; Mean Corpuscular HGB Conc 32.6 g/dl (31.0-35.0); Mean Corpuscular Hemoglobin 32.9 pg (27.0-33.0); Mean Corpuscular Volume 100.9 fL (80.0-98.0); Mean Platelet Volume 10.6 fL (9.4-12.3); Monocytes Absolute Auto 0.5 X10*3/uL (0.1-1.2); Monocytes Percent Auto 2.6 % (2-11); Neutrophils Absolute Auto 15.7 x10*3/uL (2.0-8.3); Neutrophils Percent Auto 88.8 % (45-73); PLT CLUMP 1; Red Blood Count 3.37 X10*6/uL (4.20-5.50); Red Cell Distribution Width 14.8 % (11.0-16.0); SCAN SMEAR FLAG 1
[2024-04-19] MEDS: Calcium Gluconate/NaCl,Iso-Osm 2 GM/100 ML PLAST..BAG IV (07:53)
[2024-04-19 07:55] LABS: White Blood Count 17.7 X10*3/uL (4.8-10.8)
[2024-04-19 07:58] LABS: Alanine Aminotransferase 27 U/L (0-31); Albumin Level 4.2 g/dL (3.5-5.0); Alkaline Phosphatase 160 U/L (39-117); Anion Gap 24 (12-20); Aspartate Amino Transferase 33 U/L (5-31); Bilirubin Direct 0.1 mg/dL (0.0-0.5); Bilirubin Total 0.4 mg/dL (0.0-1.0); Blood Urea Nitrogen 60 mg/dL (9-16); Calcium 9.8 mg/dL (8.4-10.2); Carbon Dioxide 25 mmol/L (22-29); Chloride 91 mmol/L (96-108); Glucose Random 243 mg/dL (60-115); Magnesium 2.6 mg/dL (1.6-2.6); Sodium 134 mmol/L (135-145); Total Protein 8.3 g/dL (6.5-8.0)
[2024-04-19 08:00] LABS: B Type Natriuretic Peptide 4619 pg/mL (<100)
[2024-04-19 08:01] LABS: Creatinine Clr Calc Pharmacy 5.5; Estimated Glomerular Filt Rate 4; Potassium 6.1 mmol/L (3.3-5.1)
[2024-04-19 08:05] LABS: Venous Blood Gas Refer to POC result
[2024-04-19 08:06] LABS: VBG Base Excess 0.1 mmol/L; VBG HCO3 25 mmol/L (22-26); VBG pCO2 40 mmHg; VBG pH 7.39 (7.32-7.43); VBG pO2 190 mmHg
[2024-04-19] MEDS: Sodium Bicarbonate 8.4% 50 MEQ/50 ML SYRINGE IVPUSH (08:11)
[2024-04-19] MEDS: cefTRIAXone sodium 1 GM VIAL IVPUSH (08:15)
[2024-04-19 08:17] LABS: Platelet Count 262 X10*3/uL (160-400)
[2024-04-19 08:18] LABS: SLIDE REVIEW VERIFIED
[2024-04-19 08:20] LABS: Influenza A PCR NEGATIVE (Negative); Influenza B PCR NEGATIVE (Negative); Resp Syncy Virus RNA Qual PCR NEGATIVE (Negative); SARS COV2 PCR INHOUSE NEGATIVE (Negative)
[2024-04-19 08:24] LABS: Lactic Acid 0.7 mmol/L (0.5-2.0)
--- NOTE | 2024-04-19 08:28 | PC.NURSE ---
Patient arrived from home via ems. Patient found to be hypoxic by ems and placed on CPAP. Upon arrival to ED patient switched to BiPAP sating 98%. Via land survey technician patient reports had dialysis yesterday d/ t the holiday. Patient with 2+ pitting edema to bilat lower extremities. JVD. Patient hypertensive- given 1 nitro tab and 2 inch nitro by EMS. Nitro drip started- 2inch nitro patch removed. Nitro titrated per policy, provider aware of continued high BP`s. EMS 20g in right wrist. 20g placed in right AC.
[2024-04-19] MEDS: Albuterol Sulfate (0.083%) 2.5 MG/3 ML VIAL.NEB 5 MG INHALE (08:33)
--- NOTE | 2024-04-19 08:40 | PC.NURSE ---
RT at bedside current cpap settings 12 @ 40%. BP`s remains elevated, provider stating to keep nitro drip at current rate.
--- NOTE | 2024-04-19 09:03 | PC.NURSE ---
Patient unable to come off cpap long enough to drink margotmt- provider aware
--- NOTE | 2024-04-19 09:13 | PM.CCHP ---
History of Present Illness Date of Service: 04/19/24 Attending physician on admission: Gissel Eisenberg Chief Complaint: Dyspnea Patient is a 69 Y F w/ COPD, hypertension, diabetes mellitus type II, c/b CHF, ESRD on hemodialysis T//, last session 04/18, presenting initially to the emergency department on 04/19 w/ dyspnea, found to be hypertension, hypoxic, c/f volume overload, as well as hyperkalemic, started on CPAP and nitro gtt, admitted ICU for emergent hemodialysis Review of Systems Review of Systems: Yes all other systems are reviewed and are negative [facility] Past Medical History Medical History Diabetes mellitus Hemorrhoids that prolapse with straining, but retract spontaneously Hemorrhoids with complication ESRD on dialysis Delirium Sepsis Tachycardia Leukocytosis Fever End stage chronic kidney disease Congestive heart failure with left ventricular dysfunction ESRD (end stage renal disease) Hypertension Pulmonary congestion COVID-19 virus infection Asthma with COPD with exacerbation COVID ESRD (end stage renal disease) Hypertrophic cardiomyopathy Acute exacerbation of chronic obstructive pulmonary disease (COPD) Heart failure with preserved ejection fraction Constipation End stage renal disease on dialysis Ascites Anasarca Ischemic colitis Acute GI bleeding Anemia Dialysis patient, noncompliant Anemia in chronic kidney disease Opioid withdrawal Essential hypertension Family History Family History Other Hypertension Surgical History Surgical History No pertinent past surgical history Social History Social History Household Members: None Housing: Apartment Do you presently have visiting nurse or other home services: Yes Unable to assess alcohol history related to: Unknown Alcohol intake: former Comment: pt refuses high fall risk protocol Patient Tobacco Use Status: Never used Tobacco Tobacco use type: Cigarette Cigarettes Per Day: 2 Years Smoked: 50 +/- Smoked in Last 30 Days: No e-Cigarette/Vaping Use: Former Use Second Hand Smoke Exposure: No Use of substances other than those prescribed or required for medical reasons: No Substance Use Type: Marijuana Advance Directives: Yes Advance Directives on File: Yes Advance Directives Date on File: 04/17/22 service: No Current occupational status: disabled Meds Allergies Allergy/AdvReac Type Severity Reaction Status Date / Time No Known Allergies Allergy Unverified 04/19/24 07:19 Active Medications: Current Medications Heparin Sodium (Porcine) (Heparin Sodium,Porcine 5,000 Unit/Ml Vial) 5,000 unit IVPUSH Q8H [facility] Nitroglycerin/Dextrose (Nitroglycerin/D5w) 100 mg in 250 mls @ 0 mls/hr IVCONT .Q0M PHAN; Protocol Last Titration: 04/19/24 08:16 Dose: 60 mcg/min, 9 mls/hr Home Medications ?Medication ?Instructions ?Recorded ?Confirmed ?Last Taken ?Type buprenorphine 8 mg-naloxone 2 mg 1 film sublingual BID 10/22/20 01/28/24 10/15/23 History sublingual film (Suboxone) melatonin 5 mg tablet 5 mg PO BEDTIME PRN Sleep 04/15/21 01/28/24 Unknown History pantoprazole 40 mg tablet,delayed 40 mg PO DAILY@0630 04/15/21 01/28/24 10/15/23 History release aspirin 81 mg tablet,delayed 1 tab PO DAILY 10/11/21 01/28/24 10/15/23 History release albuterol sulfate 90 mcg/actuation 2 puff inhalation Q4H PRN wheezing 01/31/22 01/28/24 Unknown History aerosol inhaler (Ventolin HFA) ondansetron 4 mg disintegrating 4 mg PO BID PRN nausea and vomiting 03/09/22 01/28/24 Unknown History tablet albuterol sulfate 2.5 mg/3 mL 1 amp inhalation TID PRN Shortness 05/08/22 01/28/24 Unknown History (0.083 %) solution for nebulization Of Breath isosorbide dinitrate 30 mg tablet 30 mg PO TID 07/10/22 01/28/24 10/15/23 History calcium acetate(phosphat bind) 667 1,334 mg PO TIDWM 03/13/23 01/28/24 10/15/23 History mg capsule clonidine HCl 0.1 mg tablet 0.1 mg PO BID 03/13/23 01/28/24 10/15/23 History lactulose 10 gram/15 mL oral 20 g PO DAILY constipation 03/13/23 01/28/24 10/15/23 History solution mirtazapine 15 mg tablet 15 mg PO BEDTIME 03/13/23 01/28/24 10/15/23 History acetaminophen 500 mg tablet 500 mg PO TID PRN Pain 10/16/23 01/28/24 Unknown History diclofenac sodium 1 % topical gel 2 g topical BID PRN Pain 10/16/23 01/28/24 Unknown History fluticasone propionate 110 1 puff inhalation BID 10/16/23 01/28/24 10/15/23 History mcg/actuation HFA aerosol inhaler nicotine 14 mg/24 hr daily 1 patch topical DAILY 10/16/23 01/28/24 10/15/23 History transdermal patch polyethylene glycol 3350 17 17 g PO DAILY 10/16/23 01/28/24 10/15/23 History gram/dose oral powder carvedilol 25 mg tablet 25 mg PO BID 01/28/24 01/28/24 Unknown History losartan 50 mg tablet 50 mg PO DAILY 01/28/24 01/28/24 Unknown History trazodone 50 mg tablet 50 mg PO BEDTIME 01/28/24 01/28/24 Unknown History Physical Exam Vital Signs: Vital Signs: Last Vital Signs Temp 98.9 F 04/19/24 08:35 Pulse 53 04/19/24 09:00 Resp 18 04/19/24 09:00 BP 190/93 H 04/19/24 09:00 Pulse Ox 100 04/19/24 09:00 O2 Del Method CPAP 04/19/24 09:00 BMI result Body Mass Index 32.9 Const: Other: appreciable dyspnea w/ CPAP in place, though no aziza respiratory distress General: cooperative, well developed, alert, awake and Physically active Orientation/consciousness: patient oriented x3 HEENT: Head: Yes normal to inspection, Yes normocephalic and Yes atraumatic Eyes: General: appearance normal, both eyes and all related structures Neck: Neck: Yes normal visual inspection, Yes full ROM, Yes no meningeal signs, Yes trachea midline and Yes supple Chest: Chest palpation & inspection: normal inspection of the chest Resp: Other: appreciable diminished breath sounds throughout; some appreciable rales; no appreciable rhonchi Cardio: Rate: regular rate Rhythm: regular rhythm GI: Inspection: Yes normal to inspection, No Abdominal wall edema and No distended Palpation (GI): Soft to palpation, not firm, nontender, no guarding and not rigid Skin: General skin exam: no rashes or lesions noted Neuro: General: patient oriented x3, tone normal, moves all extremities, no meningeal signs and no focal motor deficits Extrem: Other: appreciable 1+ pitting edema to bilateral shins General: Yes normal to inspection, Yes full ROM and Yes capillary refill normal Psych: Appearance: grossly normal Results Labs 04/19/24 07:34 04/19/24 07:34 Labs: Laboratory Results - last 24 hr 04/19/24 04/19/24 04/19/24 07:34 08:01 08:04 MCV 100.9 H MCH 32.9 MCHC 32.6 RDW 14.8 Plt Count 262 MPV 10.6 Immature Gran % (Auto) 0.5 H Neut % (Auto) 88.8 H Lymph % (Auto) 5.8 L [facility] % (Auto) 2.6 Eos % (Auto) 2.0 Baso % (Auto) 0.3 Lymph # (Auto) 1.0 L [facility] # (Auto) 0.5 Eos # (Auto) 0.4 Baso # (Auto) 0.1 Abs Immat Gran (auto) 0.08 H Absolute Neuts (auto) 15.7 H Absolute Nucleated RBC 0.000 Nucleated RBC % (auto) 0.0 Smear Tech's Comments VERIFIED VBG pH 7.39 VBG pCO2 40 VBG pO2 190 VBG HCO3 25 VBG O2 Saturation 99.0 VBG Base Excess 0.1 Anion Gap 24 H Estim Creat Clear Calc 5.5 Estimated GFR 4 Random Glucose 243 H Lactic Acid 0.7 Calcium 9.8 Magnesium 2.6 Total Bilirubin 0.4 Direct Bilirubin 0.1 AST 33 H ALT 27 Alkaline Phosphatase 160 H Troponin I High Sens 31.0 H B-Natriuretic Peptide 4619 H Total Protein 8.3 H Albumin 4.2 Influenza Type A (PCR) NEGATIVE Influenza Type B (PCR) NEGATIVE RSV RNA Qual (PCR) NEGATIVE SARS-CoV-2 RNA (RT-PCR) NEGATIVE Imaging Radiologist's Impressions: Impressions Chest X-Ray 04/19/24 07:22 IMPRESSION: Acute on chronic interstitial disease. Electronically signed by: Maris Dias MD 04/19/2024 08:47 AM [facility] Assessment and Plan (1) Acute hypoxemic respiratory failure: Status: Acute (2) Hypertensive emergency: Status: Acute (3) ESRD (end stage renal disease) on dialysis: Status: Acute Plan Patient is a 69 Y F w/ COPD, hypertension, diabetes mellitus type II, c/b CHF, ESRD on hemodialysis T/, last session 04/18, presenting initially to the emergency department on 04/19 w/ dyspnea, found to be hypertension, hypoxic, c/f volume overload, as well as hyperkalemic, started on CPAP and nitro gtt, admitted ICU for emergent hemodialysis N: no acute issues CV: hypertensive urgency in setting of volume overload, nitro gtt, wean as tolerated; CHF R: acute hypoxic respiratory failure in setting of volume overload, CPAP, nitro gtt, wean as tolerated; to initiate urgent hemodialysis GI: NPO while on CPAP, advance to diabetic diet as tolerated : ESRD on hemodialysis T/, last session 04/18, to initiate urgent hemodialysis in setting of volume overload and hyperkalemia H: leukocytosis, likely reactive; chemical DVT prophylaxis w/ heparin SQ ID: in setting of leukocytosis, infectious work-up initiated, empiric ceftriaxone, to follow-up BCx E: diabetes mellitus type II, insulin sliding scale P: no acute issues; prior opioid misuse, on suboxone, though unclear dose
[2024-04-19] MEDS: Insulin Regular, Human 100 UNIT/ML 10 ML VIAL IVPUSH (09:22)
[2024-04-19] MEDS: Heparin Sodium,Porcine 5,000 UNIT/ML VIAL 5000 UNIT IVPUSH ×2 (09:24→17:05)
[2024-04-19 10:21] LABS: Glucose, Whole Blood 115 mg/dL (60-115)
[2024-04-19] MEDS: Albuterol Sulfate (0.083%) 2.5 MG/3 ML VIAL.NEB 10 MG INHALE (10:31)
[2024-04-19] MEDS: Calcium Gluconate/NaCl,Iso-Osm 1 GM/50 ML PLAST..BAG IV (10:35)
[2024-04-19] MEDS: Buprenorphine/Naloxone 12/3 mg FILM 1 FILM BUCCAL (11:40)
--- NOTE | 2024-04-19 12:34 | PHA.MEDREC ---
Addendum entered by Kaitlynn Persaud RPh 04/19/24 12:52: MED REC REVIEWED BY [facility] Original Note: Pharmacy Consult ? Medication Reconciliation Pharmacy has completed the medication reconciliation. Patient unable to participate in med rec due to need of CPAP (per note). Utilized claim history to confirm meds as [employer] services reported that prior to CPAP, patient reported using medboxes. Pt is citizen of [place].
[2024-04-19 15:38] LABS: Glucose, Whole Blood 67 mg/dL (60-115)
[2024-04-19] MEDS: Losartan Potassium 50 MG TABLET PO (17:01)
[2024-04-19] MEDS: carvediloL 25 MG TABLET PO ×2 (17:01→19:49)
[2024-04-19] MEDS: amLODIPine Besylate 10 MG TABLET PO (17:02)
[2024-04-19 18:47] LABS: Magnesium 2.1 mg/dL (1.6-2.6); Phosphorus 3.2 mg/dL (2.7-4.5)
[2024-04-19 19:25] LABS: Anion Gap 19 (12-20)
[2024-04-19 19:32] LABS: Blood Urea Nitrogen 23 mg/dL (9-16); Calcium 9.1 mg/dL (8.4-10.2); Carbon Dioxide 28 mmol/L (22-29); Chloride 95 mmol/L (96-108); Creatinine Clr Calc Pharmacy 10.2; Estimated Glomerular Filt Rate 9; Glucose Random 183 mg/dL (60-115); Potassium 4.4 mmol/L (3.3-5.1); Sodium 138 mmol/L (135-145)
[2024-04-19] MEDS: cloNIDine HCL 0.1 MG TABLET PO (19:49)
[2024-04-19] MEDS: Acetaminophen 325 MG TABLET 975 MG PO (19:56)
--- NOTE | 2024-04-19 19:57 | PM.PNNEP ---
Subjective Subjective Date of Service: 04/19/24 Physical Exam Vital Signs: Vital Signs: Last Vital Signs Temp 97.6 F 04/19/24 16:00 Pulse 83 04/19/24 18:57 Resp 19 04/19/24 18:57 BP 149/77 H 04/19/24 18:57 Pulse Ox 94 04/19/24 18:57 O2 Del Method Room Air 04/19/24 18:57 FiO2 30 04/19/24 15:00 BMI result Body Mass Index 29.0 Objective Data Labs 04/19/24 07:34 04/19/24 18:07 Labs: Laboratory Results - last 24 hr 04/19/24 04/19/24 04/19/24 07:34 08:01 08:04 WBC 17.7 H RBC 3.37 L D Hgb 11.1 L Hct 34.0 L D MCV 100.9 H MCH 32.9 MCHC 32.6 RDW 14.8 Plt Count 262 MPV 10.6 Immature Gran % (Auto) 0.5 H Neut % (Auto) 88.8 H Lymph % (Auto) 5.8 L [facility] % (Auto) 2.6 Eos % (Auto) 2.0 Baso % (Auto) 0.3 Lymph # (Auto) 1.0 L [facility] # (Auto) 0.5 Eos # (Auto) 0.4 Baso # (Auto) 0.1 Abs Immat Gran (auto) 0.08 H Absolute Neuts (auto) 15.7 H Absolute Nucleated RBC 0.000 Nucleated RBC % (auto) 0.0 Smear Tech's Comments VERIFIED VBG pH 7.39 VBG pCO2 40 VBG pO2 190 VBG HCO3 25 VBG O2 Saturation 99.0 VBG Base Excess 0.1 Sodium 134 L Potassium 6.1 H* Chloride 91 L Carbon Dioxide 25 Anion Gap 24 H BUN 60 H Creatinine 9.54 H* Estim Creat Clear Calc 5.5 Estimated GFR 4 POC Glucose Random Glucose 243 H Lactic Acid 0.7 Calcium 9.8 Phosphorus Magnesium 2.6 Total Bilirubin 0.4 Direct Bilirubin 0.1 AST 33 H ALT 27 Alkaline Phosphatase 160 H Troponin I High Sens 31.0 H B-Natriuretic Peptide 4619 H Total Protein 8.3 H Albumin 4.2 Influenza Type A (PCR) NEGATIVE Influenza Type B (PCR) NEGATIVE RSV RNA Qual (PCR) NEGATIVE SARS-CoV-2 RNA (RT-PCR) NEGATIVE 11/30/24 11/30/24 11/30/24 10:13 15:32 18:07 WBC RBC Hgb Hct MCV MCH MCHC RDW Plt Count MPV Immature Gran % (Auto) Neut % (Auto) Lymph % (Auto) Simpson % (Auto) Eos % (Auto) Baso % (Auto) Lymph # (Auto) Simpson # (Auto) Eos # (Auto) Baso # (Auto) Abs Immat Gran (auto) Absolute Neuts (auto) Absolute Nucleated RBC Nucleated RBC % (auto) Smear Tech's Comments VBG pH VBG pCO2 VBG pO2 VBG HCO3 VBG O2 Saturation VBG Base Excess Sodium 138 Potassium 4.4 D Chloride 95 L Carbon Dioxide 28 Anion Gap 19 BUN 23 H Creatinine 4.90 H* Estim Creat Clear Calc 10.2 Estimated GFR 9 POC Glucose 115 67 Random Glucose 183 H Lactic Acid Calcium 9.1 D Phosphorus 3.2 Magnesium 2.1 Total Bilirubin Direct Bilirubin AST ALT Alkaline Phosphatase Troponin I High Sens B-Natriuretic Peptide Total Protein Albumin Influenza Type A (PCR) Influenza Type B (PCR) RSV RNA Qual (PCR) SARS-CoV-2 RNA (RT-PCR) Procedures Date of Service Date of Service: 04/19/24 Assessment & Plan Assessment and plan Plan End Stage Renal Disease Permcath . Usually gets HD on MWF 2 Gram K, 2 Gram Na, Phos restricted diet Lokelnd prn Time Spent With Patient Time: Total time managing care of this patient today ____ minutes.
[2024-04-19 19:58] LABS: Glucose, Whole Blood 182 mg/dL (60-115)
--- NOTE | 2024-04-19 19:59 | PM.CNNEP ---
History of Present Illness Reason for Consult Consult date: 04/19/24 Chief Complaint Chief complaint: Emergent Hemodialysis History of Present Illness Narrative: 69 yo 69 Y F w/ COPD, hypertension, diabetes mellitus type II, c/b CHF, ESRD on hemodialysis T//, last session 04/18( holiday schedule), presenting initially to the emergency department on 04/19 w/ dyspnea, found to be hypertension, hypoxic, c/f volume overload, as well as hyperkalemic, started on CPAP and nitro gtt, admitted ICU for emergent hemodialysis she reports compliance with her medications. no h/o cough, sputum, fevers, chest pain or headache. h/o breathing became acutely worse last night. EMS found her 74% on RA - placed her on CPAP, started nitro paste and 2L nitro for BPs > 200s/100s. [facility] Past Medical History Medical History Diabetes mellitus Hemorrhoids that prolapse with straining, but retract spontaneously Hemorrhoids with complication ESRD on dialysis Delirium Sepsis Tachycardia Leukocytosis Fever End stage chronic kidney disease Congestive heart failure with left ventricular dysfunction ESRD (end stage renal disease) Hypertension Pulmonary congestion COVID-19 virus infection Asthma with COPD with exacerbation COVID ESRD (end stage renal disease) Hypertrophic cardiomyopathy Acute exacerbation of chronic obstructive pulmonary disease (COPD) Heart failure with preserved ejection fraction Constipation End stage renal disease on dialysis Ascites Anasarca Ischemic colitis Acute GI bleeding Anemia Dialysis patient, noncompliant Anemia in chronic kidney disease Opioid withdrawal Essential hypertension Family History Family History Other Hypertension Surgical History Surgical History No pertinent past surgical history Social History Social History Household Members: Caregiver Housing: Assisted Living Facility Do you presently have visiting nurse or other home services: Yes Unable to assess alcohol history related to: Unknown Alcohol intake: former Comment: pt refuses high fall risk protocol Patient Tobacco Use Status: Never used Tobacco Tobacco use type: Cigarette Cigarette Packs Per Day: 2 Cigarettes Per Day: 40.0 Years Smoked: 50 +/- e-Cigarette/Vaping Use: Never Used Second Hand Smoke Exposure: No Substance Use Type: Marijuana Advance Directives Date on File: 04/17/22 service: No Current occupational status: disabled Meds Allergies Allergy/AdvReac Type Severity Reaction Status Date / Time No Known Allergies Allergy Unverified 04/19/24 07:19 Active Medications: Current Medications Acetaminophen (Acetaminophen 325 Mg Tablet) 975 mg PO Q6H PRN PRN Reason: Pain, Mild (Pain Scale 1-3) Albuterol Sulfate (Albuterol Sulfate (0.042%) 1.25 Mg/3 Ml Vial.Neb) 1.25 mg INHALE RQ6H PRN PRN Reason: Wheezing Amlodipine Besylate (Amlodipine Besylate 10 Mg Tablet) 10 mg PO DAILY [facility]; Protocol Aspirin (Aspirin 81 Mg Tab.Chew) 81 mg PO DAILY [facility] Buprenorphine/Naloxone (Buprenorphine/Naloxone 12/3 Mg Film) 1 film BUCCAL DAILY [facility] Last Admin: 04/19/24 11:40 Dose: 1 film Carvedilol (Carvedilol 25 Mg Tablet) 25 mg PO BID [facility]; Protocol Ceftriaxone Sodium (Ceftriaxone Sodium 1 Gm Vial) 1 gm IVPUSH Q24H [facility] Clonidine HCl (Clonidine Hcl 0.1 Mg Tablet) 0.1 mg PO TID [facility]; Protocol Fluticasone Propionate (Fluticasone Propionate 100 Mcg Blst.W.Dev) 1 puff INHALE RBID [facility] Glucose (Glucose Gel 15 Gm Gel..Gram.) 15 gm PO Q15M PRN; Protocol PRN Reason: per Hypoglycemia Standing Ord. Heparin Sodium (Porcine) (Heparin Sodium,Porcine 5,000 Unit/Ml Vial) 5,000 unit IVPUSH Q8H [facility] Last Admin: 04/19/24 17:05 Dose: 5,000 unit Nitroglycerin/Dextrose (Nitroglycerin/D5w) 100 mg in 250 mls @ 0 mls/hr IVCONT .Q0M [facility]; Protocol Last Titration: 04/19/24 18:30 Dose: 0 mcg/min, 0 mls/hr Dextrose (D10) 250 mls @ 750 mls/hr IV Q15M PRN; Protocol PRN Reason: per Hypoglycemia Standing Ord. Insulin Human Lispro (Insulin Lispro 100 Unit/Ml 3 Ml Vial) 0 unit SUBCUT QIDACHS [facility]; Protocol Losartan Potassium (Losartan Potassium 50 Mg Tablet) 50 mg PO DAILY [facility]; Protocol Sodium Chloride (0.9 % Sodium Chloride Flush 3 Ml Syringe) 3 ml IVFLUSH QSHIFT [facility] Home Medications ?Medication ?Instructions ?Recorded ?Confirmed ?Last Taken ?Type melatonin 5 mg tablet 5 mg PO BEDTIME PRN Sleep 04/15/21 04/19/24 Unknown History pantoprazole 40 mg tablet,delayed 40 mg PO DAILY@0630 04/15/21 04/19/24 10/15/23 History release aspirin 81 mg tablet,delayed 1 tab PO DAILY 10/11/21 04/19/24 10/15/23 History release albuterol sulfate 90 mcg/actuation 2 puff inhalation Q4H PRN wheezing 01/31/22 04/19/24 Unknown History aerosol inhaler (Ventolin HFA) ondansetron 4 mg disintegrating 4 mg PO BID PRN nausea and vomiting 03/09/22 04/19/24 Unknown History tablet albuterol sulfate 2.5 mg/3 mL 1 amp inhalation TID PRN Shortness 05/08/22 04/19/24 Unknown History (0.083 %) solution for nebulization Of Breath isosorbide dinitrate 30 mg tablet 30 mg PO TID 07/10/22 04/19/24 10/15/23 History calcium acetate(phosphat bind) 667 1,334 mg PO TIDWM 03/13/23 04/19/24 10/15/23 History mg capsule clonidine HCl 0.1 mg tablet 0.1 mg PO TID 03/13/23 04/19/24 10/15/23 History lactulose 10 gram/15 mL oral 20 g PO DAILY PRN constipation 03/13/23 04/19/24 10/15/23 History solution mirtazapine 15 mg tablet 15 mg PO BEDTIME 03/13/23 04/19/24 10/15/23 History acetaminophen 500 mg tablet 500 mg PO TID PRN Pain 10/16/23 04/19/24 Unknown History diclofenac sodium 1 % topical gel 2 g topical BID PRN Pain 10/16/23 04/19/24 Unknown History fluticasone propionate 110 1 puff inhalation BID 10/16/23 04/19/24 10/15/23 History mcg/actuation HFA aerosol inhaler nicotine 14 mg/24 hr daily 1 patch topical DAILY 10/16/23 04/19/24 10/15/23 History transdermal patch carvedilol 25 mg tablet 25 mg PO BID 01/28/24 04/19/24 Unknown History losartan 50 mg tablet 50 mg PO DAILY 01/28/24 04/19/24 Unknown History trazodone 50 mg tablet 50 mg PO BEDTIME 01/28/24 04/19/24 Unknown History amlodipine 10 mg tablet 10 mg PO DAILY 04/19/24 04/19/24 Unknown History buprenorphine 12 mg-naloxone 3 mg 1 film sublingual DAILY 04/19/24 04/19/24 Unknown History sublingual film calcium acetate(phosphat bind) 667 667 mg PO DAILY PRN snack 04/19/24 04/19/24 Unknown History mg capsule glucose 4 gram chewable tablet 16 g PO Q15M PRN hypoglycemia 04/19/24 04/19/24 Unknown History hydrocortisone 2.5 % topical cream 1 appl [place] BID PRN pain 04/19/24 04/19/24 Unknown History with perineal applicator sodium zirconium cyclosilicate 10 10 g PO MOWEFR@0900 04/19/24 04/19/24 Unknown History gram oral powder packet (Lokelma) vitamin B comp no.3-folic acid 1 1 tab PO DAILY 04/19/24 04/19/24 Unknown History mg-vit C 60 mg-biotin 300 mcg tablet ([facility]) Physical Exam Vital Signs: Last Vital Signs Temp 97.6 F 04/19/24 16:00 Pulse 83 04/19/24 18:57 Resp 19 04/19/24 18:57 BP 149/77 H 04/19/24 18:57 Pulse Ox 94 04/19/24 18:57 O2 Del Method Room Air 04/19/24 18:57 FiO2 30 04/19/24 15:00 BMI result Body Mass Index 29.0 cvs: s1s2, jvp + Rs; cta Abd: soft Results Lab Results 04/19/24 07:34 04/19/24 18:07 Lab results: Chemistry 04/19/24 04/19/24 07:34 18:07 Sodium 134 L 138 Potassium 6.1 H* 4.4 D Carbon Dioxide 25 28 BUN 60 H 23 H Creatinine 9.54 H* 4.90 H* Calcium 9.8 9.1 D Phosphorus 3.2 Hematology 04/19/24 07:34 WBC 17.7 H Hgb 11.1 L Plt Count 262 Assessment and Plan (1) ESRD (end stage renal disease) on dialysis: Status: Acute Plan 69 yo 69 Y F w/ COPD, hypertension, diabetes mellitus type II, c/b CHF, ESRD on hemodialysis T//, last session 04/18( holiday schedule), presented to [facility] for non invasive ventilation and emergent dialysis esrd Volume overload HTn urgency blood pressure improved post hD she is now off bipap she is still volume up however satruating well on room air plan emergent hd today next HD on sunday for UF then resume TTS cont phos binders no need for epo cont home bp meds Procedures Date of Service Date of Service: 04/19/24
[2024-04-19] MEDS: 0.9 % Sodium Chloride Flush 3 ML SYRINGE IVFLUSH (20:00)
[2024-04-19] MEDS: Insulin Lispro 100 UNIT/ML 3 ML VIAL SUBCUT (20:02)
[2024-04-19] MEDS: ondansetron HCL 4 MG/2 ML VIAL IVPUSH (20:20)
[2024-04-19] MEDS: Trolamine Salicylate 10 % Cream 85 GM TUBE 1 APPL TOPICAL (20:23)
[2024-04-19] MEDS: Fluticasone Propionate 100 MCG BLST.W.DEV 1 PUFF INHALE (20:51)
[2024-04-20] VITALS (23 sets, daily range): BP systolic 132–210; BP diastolic 75–135; PULSE 63–87; RESP 13–24; TEMP 36.1–36.7; O2SAT 92–99; BMI 29.0
[2024-04-20] MEDS: hydrALAZINE HCl 20 MG/ML VIAL 10 MG IVPUSH (00:54)
[2024-04-20] MEDS: Heparin Sodium,Porcine 5,000 UNIT/ML VIAL 5000 UNIT IVPUSH ×2 (00:54→09:10)
[2024-04-20] MEDS: Melatonin 3 MG TABLET 6 MG PO (00:54)
[2024-04-20] MEDS: traZODone HCL 50 MG TABLET PO ×2 (00:54→20:48)
[2024-04-20] MEDS: Mirtazapine 15 MG TABLET PO ×2 (02:09→20:48)
[2024-04-20] MEDS: LORazepam 0.5 MG TABLET PO (03:18)
[2024-04-20 05:51] LABS: MANUAL DIFF FLAG NO
[2024-04-20 05:52] LABS: Basophils Percent Auto 0.2 % (0-2); Eosinophils Absolute Auto 0.1 X10*3/uL (0.0-0.4); Eosinophils Percent Auto 0.9 % (0-4); Hematocrit 32.2 % (37.0-47.0); Hemoglobin 10.3 g/dl (12.0-16.0); Imm Gran Abs Auto 0.04 X10*3/uL (0.00-0.03); Imm Gran Pct Auto 0.4 % (0.0-0.4); Lymphocytes Absolute Auto 0.8 X10*3/uL (1.2-4.9); Lymphocytes Percent Auto 7.2 % (20-40); Mean Corpuscular Hemoglobin 32.9 pg (27.0-33.0); Mean Corpuscular Volume 102.9 fL (80.0-98.0); Mean Platelet Volume 10.1 fL (9.4-12.3); Monocytes Absolute Auto 0.6 X10*3/uL (0.1-1.2); Monocytes Percent Auto 5.8 % (2-11); Neutrophils Absolute Auto 9.1 x10*3/uL (2.0-8.3); Neutrophils Percent Auto 85.5 % (45-73); Platelet Count 225 X10*3/uL (160-400); Red Blood Count 3.13 X10*6/uL (4.20-5.50); Red Cell Distribution Width 15.1 % (11.0-16.0); White Blood Count 10.6 X10*3/uL (4.8-10.8)
[2024-04-20 06:12] LABS: Anion Gap 21 (12-20); Blood Urea Nitrogen 34 mg/dL (9-16); Calcium 9.4 mg/dL (8.4-10.2); Carbon Dioxide 27 mmol/L (22-29); Chloride 94 mmol/L (96-108); Creatinine Clr Calc Pharmacy 8.7; Estimated Glomerular Filt Rate 7; Glucose Random 167 mg/dL (60-115); Magnesium 2.3 mg/dL (1.6-2.6); Phosphorus 4.2 mg/dL (2.7-4.5); Potassium 4.8 mmol/L (3.3-5.1); Sodium 137 mmol/L (135-145)
[2024-04-20 07:49] LABS: Glucose, Whole Blood 137 mg/dL (60-115)
[2024-04-20] MEDS: Fluticasone Propionate 100 MCG BLST.W.DEV 1 PUFF INHALE ×2 (07:58→21:50)
--- NOTE | 2024-04-20 08:12 | PM.CCPN ---
Subjective Subjective Date of Service: 04/20/24 Interval History: no significant overnight events; interval improvement volume overload s/p hemodialysis Critical Care Time (minutes): 0 Physical Exam Vital Signs: Vital Signs: Last Vital Signs Temp 97.4 F 04/20/24 00:00 Pulse 87 04/20/24 07:58 Resp 20 04/20/24 07:58 BP 189/135 H 04/20/24 06:00 Pulse Ox 94 04/20/24 06:00 O2 Del Method Room Air 04/20/24 06:00 FiO2 30 04/19/24 15:00 BMI result Body Mass Index 29.0 Const: General: cooperative, healthy appearing, comfortable, no acute distress, well developed, alert, awake and Physically active Orientation/consciousness: patient oriented x3 HEENT: Head: Yes normal to inspection, Yes normocephalic and Yes atraumatic Eyes: General: appearance normal, both eyes and all related structures Neck: Neck: Yes normal visual inspection, Yes full ROM, Yes no meningeal signs, Yes trachea midline and Yes supple Chest: Chest palpation & inspection: normal inspection of the chest Resp: Other: no appreciable rales, rhonchi, wheezing Effort & Inspection: normal respiratory effort Cardio: Rate: regular rate Rhythm: regular rhythm GI: Inspection: Yes normal to inspection, No Abdominal wall edema and No distended Palpation (GI): Soft to palpation, not firm, nontender, no guarding and not rigid Skin: General skin exam: no rashes or lesions noted Neuro: General: patient oriented x3, tone normal, moves all extremities, no meningeal signs and no focal motor deficits Extrem: Other: 1+ pitting edema to bilateral shins General: Yes normal to inspection, Yes full ROM and Yes capillary refill normal Psych: Appearance: grossly normal Objective Data Labs 04/20/24 05:39 04/20/24 05:39 Labs: Laboratory Results - last 24 hr 04/19/24 04/19/24 04/19/24 07:34 08:04 10:13 WBC RBC Hgb Hct MCV MCH MCHC RDW Plt Count 262 MPV 10.6 Immature Gran % (Auto) 0.5 H Neut % (Auto) 88.8 H Lymph % (Auto) 5.8 L [place] % (Auto) 2.6 Eos % (Auto) 2.0 Baso % (Auto) 0.3 Lymph # (Auto) 1.0 L [place] # (Auto) 0.5 Eos # (Auto) 0.4 Baso # (Auto) 0.1 Abs Immat Gran (auto) 0.08 H Absolute Neuts (auto) 15.7 H Absolute Nucleated RBC 0.000 Nucleated RBC % (auto) 0.0 Smear Tech's Comments VERIFIED Sodium Potassium Chloride Carbon Dioxide Anion Gap BUN Creatinine Estim Creat Clear Calc Estimated GFR POC Glucose 115 Random Glucose Lactic Acid 0.7 Calcium Phosphorus Magnesium Influenza Type A (PCR) NEGATIVE Influenza Type B (PCR) NEGATIVE RSV RNA Qual (PCR) NEGATIVE SARS-CoV-2 RNA (RT-PCR) NEGATIVE 04/19/24 04/19/24 04/19/24 15:32 18:07 19:53 WBC RBC Hgb Hct MCV MCH MCHC RDW Plt Count MPV Immature Gran % (Auto) Neut % (Auto) Lymph % (Auto) [place] % (Auto) Eos % (Auto) Baso % (Auto) Lymph # (Auto) [place] # (Auto) Eos # (Auto) Baso # (Auto) Abs Immat Gran (auto) Absolute Neuts (auto) Absolute Nucleated RBC Nucleated RBC % (auto) Smear Tech's Comments Sodium 138 Potassium 4.4 D Chloride 95 L Carbon Dioxide 28 Anion Gap 19 BUN 23 H Creatinine 4.90 H* Estim Creat Clear Calc 10.2 Estimated GFR 9 POC Glucose 67 182 H Random Glucose 183 H Lactic Acid Calcium 9.1 D Phosphorus 3.2 Magnesium 2.1 Influenza Type A (PCR) Influenza Type B (PCR) RSV RNA Qual (PCR) SARS-CoV-2 RNA (RT-PCR) 04/20/24 04/20/24 05:39 07:46 WBC 10.6 RBC 3.13 L Hgb 10.3 L Hct 32.2 L MCV 102.9 H MCH 32.9 MCHC 32.0 RDW 15.1 Plt Count 225 MPV 10.1 Immature Gran % (Auto) 0.4 Neut % (Auto) 85.5 H Lymph % (Auto) 7.2 L [place] % (Auto) 5.8 Eos % (Auto) 0.9 Baso % (Auto) 0.2 Lymph # (Auto) 0.8 L [place] # (Auto) 0.6 Eos # (Auto) 0.1 Baso # (Auto) 0.0 Abs Immat Gran (auto) 0.04 H Absolute Neuts (auto) 9.1 H Absolute Nucleated RBC 0.000 Nucleated RBC % (auto) 0.0 Smear Tech's Comments Sodium 137 Potassium 4.8 Chloride 94 L Carbon Dioxide 27 Anion Gap 21 H BUN 34 H Creatinine 5.75 H* Estim Creat Clear Calc 8.7 Estimated GFR 7 POC Glucose 137 H Random Glucose 167 H Lactic Acid Calcium 9.4 Phosphorus 4.2 Magnesium 2.3 Influenza Type A (PCR) Influenza Type B (PCR) RSV RNA Qual (PCR) SARS-CoV-2 RNA (RT-PCR) Progress Note: A&P Assessment and plan (1) Pulmonary edema: Status: Acute (2) ESRD (end stage renal disease) on dialysis: Status: Acute Plan Patient is a 69 Y F w/ COPD, hypertension, diabetes mellitus type II, c/b CHF, ESRD on hemodialysis T/, last session 04/18, presenting initially to the emergency department on 04/19 w/ dyspnea, found to be hypertension, hypoxic, c/f volume overload, as well as hyperkalemic, started on CPAP and nitro gtt, admitted ICU for emergent hemodialysis N: no acute issues CV: hypertensive urgency in setting of volume overload, resolved R: acute hypoxic respiratory failure in setting of volume overload, resolved GI: diabetic diet : ESRD on hemodialysis T/, last session 04/19 H: leukocytosis, likely reactive; chemical DVT prophylaxis w/ heparin SQ ID: in setting of leukocytosis, infectious work-up initiated, empiric ceftriaxone, to follow-up BCx E: diabetes mellitus type II, insulin sliding scale P: no acute issues; prior opioid misuse, on suboxone Quality Stroke Does the patient have a stroke diagnosis?: No VTE Prior VTE?: No VTE Risk Level:: Medical - moderate - high VTE Device Contraindication: N/A - Device Ordered VTE Drug Contraindication: N/A - Med Ordered
[2024-04-20] MEDS: 0.9 % Sodium Chloride Flush 3 ML SYRINGE IVFLUSH ×3 (08:25→20:53)
[2024-04-20] MEDS: Buprenorphine/Naloxone 12/3 mg FILM 1 FILM BUCCAL (08:35)
[2024-04-20] MEDS: cefTRIAXone sodium 1 GM VIAL IVPUSH (08:35)
[2024-04-20] MEDS: carvediloL 25 MG TABLET PO ×2 (08:36→20:48)
[2024-04-20] MEDS: amLODIPine Besylate 10 MG TABLET PO (08:37)
[2024-04-20] MEDS: cloNIDine HCL 0.1 MG TABLET PO ×3 (08:37→20:48)
[2024-04-20] MEDS: Losartan Potassium 50 MG TABLET PO (08:38)
[2024-04-20] MEDS: Aspirin 81 MG TAB.CHEW PO (08:38)
[2024-04-20] MEDS: ondansetron HCL 4 MG/2 ML VIAL IVPUSH ×2 (08:47→20:47)
--- NOTE | 2024-04-20 11:15 | MHC.CM.PN ---
Pt presents to ICU after missing HD sessions this week. Information obtained from pt and pt's HCP/[employer]ANGE [employer] Chelly. 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 She attends [facility] in [facility] , uses a walker and had VNA services from [employer] but doesn't think she is active any longer. HCP on file, IMM in chart. D/C plan is for a return to home w/existing services via BLS
[2024-04-20 11:37] LABS: Glucose, Whole Blood 204 mg/dL (60-115)
[2024-04-20] MEDS: Insulin Lispro 100 UNIT/ML 3 ML VIAL SUBCUT (12:16)
[2024-04-20] MEDS: Isosorbide Dinitrate 20 MG TABLET 40 MG PO ×2 (12:17→18:13)
--- NOTE | 2024-04-20 15:51 | PM.EVENT ---
Event Note Date of Service: 04/20/24 Event Note: This is a 69 year old female with history of COPD, hypertension, T2DM, CHF, ESRD on HD , last session 04/18, presenting initially to the emergency department on 04/19 w/ dyspnea, found to be hypertensive, hypoxic, volume overload, and hyperkalemia requiring CPAP and nitro gtt, admitted ICU for emergent hemodialysis. Received HD 04/19 and volume status and hypoxia improved. She was downgraded to the medical floor 04/20 ESRD on HD last HD 04/19 nephrology following, plan for HD 04/21 and then resume normal schedule hypertensive urgency due to volume overload s/p nitro ggt bp uncontrolled, resumed on baseline meds check manual bp only as there is lg discrepancy with automated bp can use prn hydralazine if necessary for SBP >160 DM SSI, POCs, ADA diet no meds on med rec leukocytosis likely reactive, pt remains afebrile started on empiric ceftriaxone in ICU, but no infectious process found thus far. will stop CXR negative for infection, blood cultures negative to date wbc normalized Hyperkalemia resolved with HD h/o OUD suboxone tobacco use disorder NRT dvt ppx - heparin Time Spent With Patient Time: Total time managing care of this patient today ____ minutes.
[2024-04-20 16:22] LABS: Glucose, Whole Blood 63 mg/dL (60-115)
--- NOTE | 2024-04-20 16:23 | P.PNNP_ITS ---
Subjective Subjective Date of Service: 04/21/24 Interval history: no significant overnight events; interval improvement volume overload s/p hemodialysis Physical Exam 2 Vital Signs: Vital Signs: Last Vital Signs Temp 97.8 F 04/20/24 15:52 Pulse 67 04/20/24 15:52 Resp 15 04/20/24 15:52 BP 174/76 H 04/20/24 15:52 Pulse Ox 95 04/20/24 15:52 O2 Del Method Room Air 04/20/24 15:52 FiO2 30 04/19/24 15:00 BMI result Body Mass Index 29.0 cvs: s1s2 Rs; cta Abd; soft Objective Data Labs 04/20/24 05:39 04/20/24 05:39 Labs: Laboratory Results - last 24 hr 04/19/24 04/19/24 04/20/24 18:07 19:53 05:39 WBC 10.6 RBC 3.13 L Hgb 10.3 L Hct 32.2 L MCV 102.9 H MCH 32.9 MCHC 32.0 RDW 15.1 Plt Count 225 MPV 10.1 Immature Gran % (Auto) 0.4 Neut % (Auto) 85.5 H Lymph % (Auto) 7.2 L [place] % (Auto) 5.8 Eos % (Auto) 0.9 Baso % (Auto) 0.2 Lymph # (Auto) 0.8 L [place] # (Auto) 0.6 Eos # (Auto) 0.1 Baso # (Auto) 0.0 Abs Immat Gran (auto) 0.04 H Absolute Neuts (auto) 9.1 H Absolute Nucleated RBC 0.000 Nucleated RBC % (auto) 0.0 Sodium 138 137 Potassium 4.4 D 4.8 Chloride 95 L 94 L Carbon Dioxide 28 27 Anion Gap 19 21 H BUN 23 H 34 H Creatinine 4.90 H* 5.75 H* Estim Creat Clear Calc 10.2 8.7 Estimated GFR 9 7 POC Glucose 182 H Random Glucose 183 H 167 H Calcium 9.1 D 9.4 Phosphorus 3.2 4.2 Magnesium 2.1 2.3 04/20/24 04/20/24 04/20/24 07:46 11:33 16:09 WBC RBC Hgb Hct MCV MCH MCHC RDW Plt Count MPV Immature Gran % (Auto) Neut % (Auto) Lymph % (Auto) [place] % (Auto) Eos % (Auto) Baso % (Auto) Lymph # (Auto) [place] # (Auto) Eos # (Auto) Baso # (Auto) Abs Immat Gran (auto) Absolute Neuts (auto) Absolute Nucleated RBC Nucleated RBC % (auto) Sodium Potassium Chloride Carbon Dioxide Anion Gap BUN Creatinine Estim Creat Clear Calc Estimated GFR POC Glucose 137 H 204 H 63 Random Glucose Calcium Phosphorus Magnesium Microbiology Microbiology Results: Microbiology 04/19/24 08:04 Blood - Venous Blood Culture - Preliminary No growth after 24 hours. 04/19/24 08:04 Blood - Venous Blood Culture - Preliminary No growth after 24 hours. Procedures Date of Service Date of Service: 04/21/24 Assessment & Plan Assessment and plan (1) Volume overload: Status: Acute (2) ESRD (end stage renal disease) on dialysis: Status: Acute Plan 69 yo 69 Y F w/ COPD, hypertension, diabetes mellitus type II, c/b CHF, ESRD on hemodialysis T//, last session 04/18( holiday schedule), presented to Icu for non invasive ventilation and emergent dialysis esrd Volume overload HTn urgency blood pressure improved post hD she is now off bipap she is still volume up however saturating well on room air plan emergent hd sunday next HD on sunday for UF then resume TTS cont phos binders no need for epo cont home bp meds Time Spent With Patient Time: Total time managing care of this patient today ____ minutes. Progress Note: Quality Stroke Does the patient have a stroke diagnosis?: No
[2024-04-20] MEDS: Calcium Acetate 667 MG CAPSULE 1334 MG PO (18:13)
[2024-04-20 20:14] LABS: CDiff Gene PCR NEGATIVE (Negative)
[2024-04-20 20:21] LABS: Glucose, Whole Blood 129 mg/dL (60-115)
[2024-04-20] MEDS: Heparin Sodium,Porcine 5,000 UNIT/ML VIAL 5000 UNIT SUBCUT (20:47)
[2024-04-21] VITALS (10 sets, daily range): BP systolic 150–210; BP diastolic 72–100; PULSE 65–97; RESP 14–20; TEMP 36.2–36.7; O2SAT 91–99
[2024-04-21] MEDS: Albuterol Sulfate (0.042%) 1.25 MG/3 ML VIAL.NEB INHALE (03:04)
[2024-04-21] MEDS: ondansetron HCL 4 MG/2 ML VIAL IVPUSH (03:41)
[2024-04-21] MEDS: Omeprazole 20 MG CAPSULE.DR PO (03:42)
[2024-04-21] MEDS: Heparin Sodium,Porcine 5,000 UNIT/ML VIAL 5000 UNIT SUBCUT ×3 (03:42→20:10)
[2024-04-21 07:30] LABS: Glucose, Whole Blood 153 mg/dL (60-115)
[2024-04-21] MEDS: Fluticasone Propionate 100 MCG BLST.W.DEV 1 PUFF INHALE ×2 (07:44→20:31)
[2024-04-21 08:41] LABS: MANUAL DIFF FLAG NO
[2024-04-21] MEDS: Calcium Acetate 667 MG CAPSULE 1334 MG PO ×3 (08:41→16:59)
[2024-04-21] MEDS: Insulin Lispro 100 UNIT/ML 3 ML VIAL SUBCUT ×2 (08:41→12:58)
[2024-04-21] MEDS: carvediloL 25 MG TABLET PO ×2 (08:42→20:08)
[2024-04-21] MEDS: Isosorbide Dinitrate 20 MG TABLET 40 MG PO ×3 (08:42→16:59)
[2024-04-21] MEDS: Losartan Potassium 50 MG TABLET PO (08:42)
[2024-04-21] MEDS: Sodium Zirconium Cyclosilicate 10 GM POWD.PACK PO (08:42)
[2024-04-21] MEDS: Aspirin 81 MG TAB.CHEW PO (08:42)
[2024-04-21] MEDS: cloNIDine HCL 0.1 MG TABLET PO ×3 (08:42→20:09)
[2024-04-21] MEDS: hydrALAZINE HCl 20 MG/ML VIAL 10 MG IVPUSH (08:43)
[2024-04-21] MEDS: Nicotine 14 MG PATCH.TD24 TRANSDERMA (08:43)
[2024-04-21] MEDS: Buprenorphine/Naloxone 12/3 mg FILM 1 FILM BUCCAL (08:43)
[2024-04-21] MEDS: amLODIPine Besylate 10 MG TABLET PO (08:43)
[2024-04-21] MEDS: 0.9 % Sodium Chloride Flush 3 ML SYRINGE IVFLUSH ×2 (08:45→17:00)
[2024-04-21 08:46] LABS: Basophils Percent Auto 0.3 % (0-2); Eosinophils Absolute Auto 0.2 X10*3/uL (0.0-0.4); Eosinophils Percent Auto 2.4 % (0-4); Hematocrit 32.9 % (37.0-47.0); Hemoglobin 10.8 g/dl (12.0-16.0); Imm Gran Abs Auto 0.05 X10*3/uL (0.00-0.03); Imm Gran Pct Auto 0.6 % (0.0-0.4); Lymphocytes Absolute Auto 1.1 X10*3/uL (1.2-4.9); Lymphocytes Percent Auto 12.8 % (20-40); Mean Corpuscular HGB Conc 32.8 g/dl (31.0-35.0); Mean Corpuscular Hemoglobin 33.3 pg (27.0-33.0); Mean Corpuscular Volume 101.5 fL (80.0-98.0); Mean Platelet Volume 10.4 fL (9.4-12.3); Monocytes Absolute Auto 0.7 X10*3/uL (0.1-1.2); Monocytes Percent Auto 7.7 % (2-11); Neutrophils Absolute Auto 6.5 x10*3/uL (2.0-8.3); Neutrophils Percent Auto 76.2 % (45-73); Platelet Count 244 X10*3/uL (160-400); Red Blood Count 3.24 X10*6/uL (4.20-5.50); Red Cell Distribution Width 15.5 % (11.0-16.0); White Blood Count 8.6 X10*3/uL (4.8-10.8)
--- NOTE | 2024-04-21 09:11 | P.PNIM_ITS ---
Subjective Subjective Date of Service: 04/21/24 Review of Systems Follow-up hypertensive urgency secondary to end-stage renal disease Feeling better today No headache or nausea Physical Exam 2 Vital Signs: Vital Signs: Last Vital Signs Temp 97.2 F 04/21/24 02:58 Pulse 97 04/21/24 07:48 Resp 20 04/21/24 07:48 BP 210/100 H 04/21/24 07:46 Pulse Ox 91 L 04/21/24 07:46 O2 Del Method Room Air 04/21/24 07:46 FiO2 30 04/19/24 15:00 BMI result Body Mass Index 29.0 Appearing in no acute distress lung sounds are clear to auscultation heart regular rate rhythm, clear S1, S2 positive bowel sounds, abdomen is soft, nontender neuro patient is alert x3, no focal deficits Objective Data Active Medications Acetaminophen (Acetaminophen 325 Mg Tablet) 975 mg PO Q6H PRN PRN Reason: Pain, Mild (Pain Scale 1-3) Last Admin: 04/19/24 19:56 Dose: 975 mg Documented By: ANGELA Albuterol Sulfate (Albuterol Sulfate (0.042%) 1.25 Mg/3 Ml Vial.Neb) 1.25 mg INHALE RQ6H PRN PRN Reason: Wheezing Last Admin: 04/21/24 03:04 Dose: 1.25 mg Documented By: MYKEL Amlodipine Besylate (Amlodipine Besylate 10 Mg Tablet) 10 mg PO DAILY [facility]; Protocol Last Admin: 04/21/24 08:43 Dose: 10 mg Documented By: ELLEN Aspirin (Aspirin 81 Mg Tab.Chew) 81 mg PO DAILY [facility] Last Admin: 04/21/24 08:42 Dose: 81 mg Documented By: ELLEN Buprenorphine/Naloxone (Buprenorphine/Naloxone 12/3 Mg Film) 1 film BUCCAL DAILY [facility] Last Admin: 04/21/24 08:43 Dose: 1 film Documented By: ELLEN Calcium Acetate (Calcium Acetate 667 Mg Capsule) 1,334 mg PO TIDWM [facility] Last Admin: 04/21/24 08:41 Dose: 1,334 mg Documented By: ELLEN Carvedilol (Carvedilol 25 Mg Tablet) 25 mg PO BID [facility]; Protocol Last Admin: 04/21/24 08:42 Dose: 25 mg Documented By: ELLEN Clonidine HCl (Clonidine Hcl 0.1 Mg Tablet) 0.1 mg PO TID [facility]; Protocol Last Admin: 04/21/24 08:42 Dose: 0.1 mg Documented By: ELLEN Fluticasone Propionate (Fluticasone Propionate 100 Mcg Blst.W.Dev) 1 puff INHALE RBID [facility] Last Admin: 04/21/24 07:44 Dose: 1 puff Documented By: CLARISSA Glucose (Glucose Gel 15 Gm Gel..Gram.) 15 gm PO Q15M PRN; Protocol PRN Reason: per Hypoglycemia Standing Ord. Heparin Sodium (Porcine) (Heparin Sodium,Porcine 5,000 Unit/Ml Vial) 5,000 unit SUBCUT Q8H [facility] Last Admin: 04/21/24 03:42 Dose: 5,000 unit Documented By: RUTH Dextrose (D10) 250 mls @ 750 mls/hr IV Q15M PRN; Protocol PRN Reason: per Hypoglycemia Standing Ord. Insulin Human Lispro (Insulin Lispro 100 Unit/Ml 3 Ml Vial) 0 unit SUBCUT QIDACHS [facility]; Protocol Last Admin: 04/21/24 08:41 Dose: 2 unit Documented By: ELLEN Isosorbide Dinitrate (Isosorbide Dinitrate 20 Mg Tablet) 40 mg PO 0800,1300,1800 [facility]; Protocol Last Admin: 04/21/24 08:42 Dose: 40 mg Documented By: ELLEN Losartan Potassium (Losartan Potassium 50 Mg Tablet) 50 mg PO DAILY [facility]; Protocol Last Admin: 04/21/24 08:42 Dose: 50 mg Documented By: ELLEN Mirtazapine (Mirtazapine 15 Mg Tablet) 15 mg PO BEDTIME [facility] Last Admin: 04/20/24 20:48 Dose: 15 mg Documented By: RUTH Nicotine (Nicotine 14 Mg Patch.Td24) 14 mg TRANSDERMA DAILY [facility] Last Admin: 04/21/24 08:43 Dose: 14 mg Documented By: ELLEN Omeprazole (Omeprazole 20 Mg Capsule.Dr) 20 mg PO DAILY@0630 [facility] Last Admin: 04/21/24 03:42 Dose: 20 mg Documented By: RUTH Ondansetron HCl (Ondansetron Hcl 4 Mg/2 Ml Vial) 4 mg IVPUSH Q6H PRN PRN Reason: Nausea and Vomiting Last Admin: 04/21/24 03:41 Dose: 4 mg Documented By: RUTH Ondansetron HCl (Ondansetron Hcl 4 Mg/2 Ml Vial) 4 mg IVPUSH Q6H PRN PRN Reason: Nausea and Vomiting Sodium Chloride (0.9 % Sodium Chloride Flush 3 Ml Syringe) 3 ml IVFLUSH QSHIFT [facility] Last Admin: 04/21/24 08:45 Dose: 3 ml Documented By: ELLEN Sodium Zirconium Cyclosilicate (Sodium Zirconium Cyclosilicate 10 Gm Powd.Pack) 10 gm PO MOWEFR@0900 [facility] Last Admin: 04/21/24 08:42 Dose: 10 gm Documented By: ELLEN Trazodone HCl (Trazodone Hcl 50 Mg Tablet) 50 mg PO BEDTIME [facility] Last Admin: 04/20/24 20:48 Dose: 50 mg Documented By: RUTH Trolamine Salicylate (Trolamine Salicylate 10 % Cream 85 Gm Tube) 1 appl TOPICAL BID PRN; Protocol PRN Reason: Pain, Mild (Pain Scale 1-3) Last Admin: 04/19/24 20:23 Dose: 1 appl Documented By: ANGELA Labs 04/21/24 07:55 04/20/24 05:39 Labs: Laboratory Results - last 24 hr 04/20/24 04/20/24 04/20/24 11:33 16:09 19:06 MCV MCH MCHC RDW Plt Count MPV Immature Gran % (Auto) Neut % (Auto) Lymph % (Auto) [place] % (Auto) Eos % (Auto) Baso % (Auto) Lymph # (Auto) [place] # (Auto) Eos # (Auto) Baso # (Auto) Abs Immat Gran (auto) Absolute Neuts (auto) Absolute Nucleated RBC Nucleated RBC % (auto) POC Glucose 204 H 63 C. difficile Tox B Gene NEGATIVE 04/20/24 04/21/24 04/21/24 20:18 07:21 07:55 MCV 101.5 H MCH 33.3 H MCHC 32.8 RDW 15.5 Plt Count 244 MPV 10.4 Immature Gran % (Auto) 0.6 H Neut % (Auto) 76.2 H Lymph % (Auto) 12.8 L [place] % (Auto) 7.7 Eos % (Auto) 2.4 Baso % (Auto) 0.3 Lymph # (Auto) 1.1 L [place] # (Auto) 0.7 Eos # (Auto) 0.2 Baso # (Auto) 0.0 Abs Immat Gran (auto) 0.05 H Absolute Neuts (auto) 6.5 Absolute Nucleated RBC 0.000 Nucleated RBC % (auto) 0.0 POC Glucose 129 H 153 H C. difficile Tox B Gene Microbiology Microbiology Results: Microbiology 04/19/24 08:04 Blood Culture - Preliminary Blood - Venous No growth after 24 hours. 04/19/24 08:04 Blood Culture - Preliminary Blood - Venous No growth after 24 hours. Assessment and Plan (1) Hypertensive emergency: Status: Acute Plan 69 year old female with history of COPD, hypertension, T2DM, CHF, ESRD on HD /, last session 04/18, presenting initially to the emergency department on 04/19 w/ dyspnea, found to be hypertensive, hypoxic, volume overload, and hyperkalemia requiring CPAP and nitro gtt, admitted ICU for emergent hemodialysis. Received HD 04/19 and volume status and hypoxia improved. She was downgraded to the medical floor 04/20 ESRD on HD last HD 04/19 nephrology following, plan for HD 04/21 and then resume normal schedule hypertensive urgency due to volume overload s/p nitro ggt bp uncontrolled, resumed on baseline meds check manual bp only as there is discrepancy with automated bp can use prn hydralazine if necessary for SBP >160 DM SSI, POCs, ADA diet leukocytosis likely reactive, pt remains afebrile started on empiric ceftriaxone in ICU, but no infectious process found thus far, will stop CXR negative for infection, blood cultures negative to date wbc normalized Hyperkalemia resolved with HD h/o OUD suboxone tobacco use disorder NRT dvt ppx - heparin Full code Attending Dr. Combs Quality Stroke Does the patient have a stroke diagnosis?: No VTE Prior VTE?: No VTE Risk Level:: Medical - moderate - high VTE Device Contraindication: N/A - Device Ordered VTE Drug Contraindication: N/A - Med Ordered
[2024-04-21 09:15] LABS: Anion Gap 19 (12-20); Blood Urea Nitrogen 57 mg/dL (9-16); Calcium 9.8 mg/dL (8.4-10.2); Carbon Dioxide 29 mmol/L (22-29); Chloride 94 mmol/L (96-108); Creatinine Clr Calc Pharmacy 6.3; Estimated Glomerular Filt Rate 5; Glucose Random 161 mg/dL (60-115); Magnesium 2.5 mg/dL (1.6-2.6); Phosphorus 4.9 mg/dL (2.7-4.5); Potassium 5.6 mmol/L (3.3-5.1); Sodium 136 mmol/L (135-145)
--- NOTE | 2024-04-21 12:02 | MHC.CM.PN ---
EMR REVIEWED, PT W/EMERGENT HD D/T MISSED OUPT HD, PER HOSPITALIST PT WILL LIKELY NEED HD X2 DAYS TODAY/TOMORROW PRIOR TO BEING MEDICALLY CLEARED TO DC HOME, CM WILL CONT TO FOLLOW DC NEEDS.
[2024-04-21 12:41] LABS: Glucose, Whole Blood 227 mg/dL (60-115)
[2024-04-21] MEDS: Acetaminophen 325 MG TABLET 975 MG PO ×2 (12:57→20:09)
[2024-04-21 15:47] LABS: Glucose, Whole Blood 118 mg/dL (60-115)
[2024-04-21] MEDS: traZODone HCL 50 MG TABLET PO (20:09)
[2024-04-21] MEDS: Mirtazapine 15 MG TABLET PO (20:09)
--- NOTE | 2024-04-21 20:48 | P.PNNP_ITS ---
Subjective Subjective Date of Service: 04/21/24 Interval history: Seen and exameind,events noted Physical Exam 2 Vital Signs: Vital Signs: Last Vital Signs Temp 98.1 F 04/21/24 19:43 Pulse 74 04/21/24 20:32 Resp 20 04/21/24 20:32 BP 210/80 H 04/21/24 19:43 Pulse Ox 97 04/21/24 19:43 O2 Del Method Room Air 04/21/24 19:43 FiO2 30 04/19/24 15:00 BMI result Body Mass Index 29.0 Const: Other: appreciable dyspnea w/ CPAP in place, though no [place] respiratory distress General: cooperative, healthy appearing, comfortable, no acute distress, well developed, alert, awake and Physically active Orientation/consciousness: patient oriented x3 HEENT: Head: Yes normal to inspection, Yes normocephalic and Yes atraumatic Eyes: General: appearance normal, both eyes and all related structures Neck: Neck: Yes normal visual inspection, Yes full ROM, Yes no meningeal signs, Yes trachea midline and Yes supple Chest: Chest palpation & inspection: normal inspection of the chest Resp: Other: no appreciable rales, rhonchi, wheezing Effort & Inspection: normal respiratory effort Cardio: Rate: regular rate Rhythm: regular rhythm GI: Inspection: Yes normal to inspection, No Abdominal wall edema and No distended Palpation (GI): Soft to palpation, not firm, nontender, no guarding and not rigid Skin: General skin exam: no rashes or lesions noted Neuro: General: patient oriented x3, tone normal, moves all extremities, no meningeal signs and no focal motor deficits Extrem: Other: 1+ pitting edema to bilateral shins General: Yes normal to inspection, Yes full ROM and Yes capillary refill normal Psych: Appearance: grossly normal Objective Data Labs 04/21/24 07:55 04/21/24 07:55 Labs: Laboratory Results - last 24 hr 04/21/24 04/21/24 04/21/24 07:21 07:55 12:37 WBC 8.6 RBC 3.24 L Hgb 10.8 L Hct 32.9 L MCV 101.5 H MCH 33.3 H MCHC 32.8 RDW 15.5 Plt Count 244 MPV 10.4 Immature Gran % (Auto) 0.6 H Neut % (Auto) 76.2 H Lymph % (Auto) 12.8 L [place] % (Auto) 7.7 Eos % (Auto) 2.4 Baso % (Auto) 0.3 Lymph # (Auto) 1.1 L [place] # (Auto) 0.7 Eos # (Auto) 0.2 Baso # (Auto) 0.0 Abs Immat Gran (auto) 0.05 H Absolute Neuts (auto) 6.5 Absolute Nucleated RBC 0.000 Nucleated RBC % (auto) 0.0 Sodium 136 Potassium 5.6 H Chloride 94 L Carbon Dioxide 29 Anion Gap 19 BUN 57 H Creatinine 7.88 H* Estim Creat Clear Calc 6.3 Estimated GFR 5 POC Glucose 153 H 227 H Random Glucose 161 H Calcium 9.8 Phosphorus 4.9 H Magnesium 2.5 04/21/24 15:42 WBC RBC Hgb Hct MCV MCH MCHC RDW Plt Count MPV Immature Gran % (Auto) Neut % (Auto) Lymph % (Auto) [place] % (Auto) Eos % (Auto) Baso % (Auto) Lymph # (Auto) [place] # (Auto) Eos # (Auto) Baso # (Auto) Abs Immat Gran (auto) Absolute Neuts (auto) Absolute Nucleated RBC Nucleated RBC % (auto) Sodium Potassium Chloride Carbon Dioxide Anion Gap BUN Creatinine Estim Creat Clear Calc Estimated GFR POC Glucose 118 H Random Glucose Calcium Phosphorus Magnesium Microbiology Microbiology Results: Microbiology 04/19/24 08:04 Blood - Venous Blood Culture - Preliminary No growth after 48 hours. 04/19/24 08:04 Blood - Venous Blood Culture - Preliminary No growth after 48 hours. Procedures Date of Service Date of Service: 04/21/24 Assessment & Plan Assessment and plan (1) Volume overload: Status: Acute (2) ESRD (end stage renal disease) on dialysis: Status: Acute Plan 69 yo 69 Y F w/ COPD, hypertension, diabetes mellitus type II, c/b CHF, ESRD on hemodialysis T//, last session 04/18( holiday schedule), presented to Icu for non invasive ventilation and emergent dialysis esrd Volume overload HTn urgency: BP cont to run high REC: extra UF today and incr BP meds; HD again tomorrow to cont TTS schedule; incr BP meds Time Spent With Patient Time: Total time managing care of this patient today ____ minutes. Progress Note: Quality Stroke Does the patient have a stroke diagnosis?: No
[2024-04-21 21:15] LABS: Glucose, Whole Blood 199 mg/dL (60-115)
[2024-04-21] MEDS: hydrALAZINE HCl 25 MG TABLET PO (23:27)
[2024-04-22] VITALS (13 sets, daily range): BP systolic 160–198; BP diastolic 76–88; PULSE 62–84; RESP 16–20; TEMP 36.4–37.1; O2SAT 92–97
[2024-04-22] MEDS: Acetaminophen 325 MG TABLET 975 MG PO ×3 (02:09→20:25)
[2024-04-22] MEDS: Heparin Sodium,Porcine 5,000 UNIT/ML VIAL 5000 UNIT SUBCUT ×2 (06:39→20:27)
[2024-04-22] MEDS: Omeprazole 20 MG CAPSULE.DR PO (06:40)
[2024-04-22 07:00] LABS: Glucose, Whole Blood 153 mg/dL (60-115)
[2024-04-22] MEDS: Aspirin 81 MG TAB.CHEW PO (07:54)
[2024-04-22] MEDS: Buprenorphine/Naloxone 12/3 mg FILM 1 FILM BUCCAL (07:54)
[2024-04-22] MEDS: Nicotine 14 MG PATCH.TD24 TRANSDERMA (07:54)
[2024-04-22] MEDS: Isosorbide Dinitrate 20 MG TABLET 40 MG PO ×2 (07:54→18:05)
[2024-04-22] MEDS: Calcium Acetate 667 MG CAPSULE 1334 MG PO ×3 (07:54→18:05)
[2024-04-22] MEDS: cloNIDine HCL 0.1 MG TABLET PO ×2 (07:55→20:25)
[2024-04-22] MEDS: Losartan Potassium 50 MG TABLET PO (07:55)
[2024-04-22] MEDS: hydrALAZINE HCl 25 MG TABLET PO ×2 (07:55→20:25)
[2024-04-22] MEDS: amLODIPine Besylate 10 MG TABLET PO (07:55)
[2024-04-22] MEDS: carvediloL 25 MG TABLET PO ×2 (07:55→20:25)
[2024-04-22] MEDS: Insulin Lispro 100 UNIT/ML 3 ML VIAL SUBCUT ×3 (07:56→20:27)
[2024-04-22] MEDS: 0.9 % Sodium Chloride Flush 3 ML SYRINGE IVFLUSH ×3 (07:56→20:29)
[2024-04-22] MEDS: hydrALAZINE HCl 20 MG/ML VIAL 10 MG IVPUSH ×2 (08:03→18:23)
[2024-04-22 08:04] LABS: MANUAL DIFF FLAG NO
[2024-04-22 08:10] LABS: Basophils Percent Auto 0.3 % (0-2); Eosinophils Absolute Auto 0.2 X10*3/uL (0.0-0.4); Eosinophils Percent Auto 3.6 % (0-4); Hematocrit 31.2 % (37.0-47.0); Imm Gran Abs Auto 0.03 X10*3/uL (0.00-0.03); Imm Gran Pct Auto 0.5 % (0.0-0.4); Lymphocytes Absolute Auto 1.3 X10*3/uL (1.2-4.9); Lymphocytes Percent Auto 20.6 % (20-40); Mean Corpuscular HGB Conc 32.1 g/dl (31.0-35.0); Mean Corpuscular Hemoglobin 32.6 pg (27.0-33.0); Mean Corpuscular Volume 101.6 fL (80.0-98.0); Mean Platelet Volume 10.5 fL (9.4-12.3); Monocytes Absolute Auto 0.6 X10*3/uL (0.1-1.2); Monocytes Percent Auto 9.9 % (2-11); Neutrophils Absolute Auto 4.2 x10*3/uL (2.0-8.3); Neutrophils Percent Auto 65.1 % (45-73); Platelet Count 225 X10*3/uL (160-400); Red Blood Count 3.07 X10*6/uL (4.20-5.50); Red Cell Distribution Width 15.7 % (11.0-16.0); White Blood Count 6.4 X10*3/uL (4.8-10.8)
[2024-04-22] MEDS: Fluticasone Propionate 100 MCG BLST.W.DEV 1 PUFF INHALE ×2 (08:10→18:52)
[2024-04-22 08:35] LABS: Anion Gap 23 (12-20); Blood Urea Nitrogen 81 mg/dL (9-16); Calcium 9.7 mg/dL (8.4-10.2); Carbon Dioxide 26 mmol/L (22-29); Chloride 92 mmol/L (96-108); Creatinine Clr Calc Pharmacy 5.1; Estimated Glomerular Filt Rate 4; Glucose Random 163 mg/dL (60-115); Magnesium 2.5 mg/dL (1.6-2.6); Phosphorus 5.6 mg/dL (2.7-4.5); Potassium 6.2 mmol/L (3.3-5.1); Sodium 135 mmol/L (135-145)
--- NOTE | 2024-04-22 09:03 | P.PNIM_ITS ---
Subjective Subjective Date of Service: 04/22/24 Review of Systems Follow-up hypertensive urgency secondary to end-stage renal disease Feeling better today No headache or nausea Physical Exam 2 Vital Signs: Vital Signs: Last Vital Signs Temp 98.4 F 04/22/24 07:10 Pulse 77 04/22/24 08:16 Resp 18 04/22/24 08:16 BP 198/86 H 04/22/24 07:10 Pulse Ox 92 04/22/24 07:10 O2 Del Method Room Air 04/22/24 07:10 FiO2 30 04/19/24 15:00 BMI result Body Mass Index 29.0 Appearing in no acute distress lung sounds are clear to auscultation heart regular rate rhythm, clear S1, S2 positive bowel sounds, abdomen is soft, nontender neuro patient is alert x3, no focal deficits Objective Data Active Medications Acetaminophen (Acetaminophen 325 Mg Tablet) 975 mg PO Q6H PRN PRN Reason: Pain, Mild (Pain Scale 1-3) Last Admin: 04/22/24 02:09 Dose: 975 mg Documented By: JANE Amlodipine Besylate (Amlodipine Besylate 10 Mg Tablet) 10 mg PO DAILY [facility]; Protocol Last Admin: 04/22/24 07:55 Dose: 10 mg Documented By: CHRISTI Aspirin (Aspirin 81 Mg Tab.Chew) 81 mg PO DAILY [facility] Last Admin: 04/22/24 07:54 Dose: 81 mg Documented By: CHRISTI Buprenorphine/Naloxone (Buprenorphine/Naloxone 12/3 Mg Film) 1 film BUCCAL DAILY [facility] Last Admin: 04/22/24 07:54 Dose: 1 film Documented By: CHRISTI Calcium Acetate (Calcium Acetate 667 Mg Capsule) 1,334 mg PO TIDWM [facility] Last Admin: 04/22/24 07:54 Dose: 1,334 mg Documented By: CHRISTI Carvedilol (Carvedilol 25 Mg Tablet) 25 mg PO BID [facility]; Protocol Last Admin: 04/22/24 07:55 Dose: 25 mg Documented By: CHRISTI Clonidine HCl (Clonidine Hcl 0.1 Mg Tablet) 0.1 mg PO TID [facility]; Protocol Last Admin: 04/22/24 07:55 Dose: 0.1 mg Documented By: CHRISTI Fluticasone Propionate (Fluticasone Propionate 100 Mcg Blst.W.Dev) 1 puff INHALE RBID [facility] Last Admin: 04/22/24 08:10 Dose: 1 puff Documented By: JOHNSON Glucose (Glucose Gel 15 Gm Gel..Gram.) 15 gm PO Q15M PRN; Protocol PRN Reason: per Hypoglycemia Standing Ord. Heparin Sodium (Porcine) (Heparin Sodium,Porcine 5,000 Unit/Ml Vial) 5,000 unit SUBCUT Q8H [facility] Last Admin: 04/22/24 06:39 Dose: 5,000 unit Documented By: JANE Hydralazine HCl (Hydralazine Hcl 25 Mg Tablet) 25 mg PO TID [facility]; Protocol Last Admin: 04/22/24 07:55 Dose: 25 mg Documented By: CHRISTI Hydralazine HCl (Hydralazine Hcl 20 Mg/Ml Vial) 10 mg IVPUSH Q6H PRN; Protocol PRN Reason: SBP>170 Last Admin: 04/22/24 08:03 Dose: 10 mg Documented By: CHRISTI Dextrose (D10) 250 mls @ 750 mls/hr IV Q15M PRN; Protocol PRN Reason: per Hypoglycemia Standing Ord. Insulin Human Lispro (Insulin Lispro 100 Unit/Ml 3 Ml Vial) 0 unit SUBCUT QIDACHS [facility]; Protocol Last Admin: 04/22/24 07:56 Dose: 1 unit Documented By: CHRISTI Isosorbide Dinitrate (Isosorbide Dinitrate 20 Mg Tablet) 40 mg PO 0800,1300,1800 [facility]; Protocol Last Admin: 04/22/24 07:54 Dose: 40 mg Documented By: CHRISTI Levalbuterol HCl (Levalbuterol Hcl 1.25 Mg/3 Ml Vial.Neb) 1.25 mg INHALE Q4H PRN PRN Reason: wheezing Losartan Potassium (Losartan Potassium 50 Mg Tablet) 50 mg PO DAILY [facility]; Protocol Last Admin: 04/22/24 07:55 Dose: 50 mg Documented By: CHRISTI Mirtazapine (Mirtazapine 15 Mg Tablet) 15 mg PO BEDTIME [facility] Last Admin: 04/21/24 20:09 Dose: 15 mg Documented By: JANE Nicotine (Nicotine 14 Mg Patch.Td24) 14 mg TRANSDERMA DAILY [facility] Last Admin: 04/22/24 07:54 Dose: 14 mg Documented By: CHRISTI Omeprazole (Omeprazole 20 Mg Capsule.Dr) 20 mg PO DAILY@0630 [facility] Last Admin: 04/22/24 06:40 Dose: 20 mg Documented By: JANE Ondansetron HCl (Ondansetron Hcl 4 Mg/2 Ml Vial) 4 mg IVPUSH Q6H PRN PRN Reason: Nausea and Vomiting Sodium Chloride (0.9 % Sodium Chloride Flush 3 Ml Syringe) 3 ml IVFLUSH QSHIFT [facility] Last Admin: 04/22/24 07:56 Dose: 3 ml Documented By: CHRISTI Sodium Zirconium Cyclosilicate (Sodium Zirconium Cyclosilicate 10 Gm Powd.Pack) 10 gm PO MOWEFR@0900 [facility] Last Admin: 04/21/24 08:42 Dose: 10 gm Documented By: ELLEN Trazodone HCl (Trazodone Hcl 50 Mg Tablet) 50 mg PO BEDTIME [facility] Last Admin: 04/21/24 20:09 Dose: 50 mg Documented By: JANE Trolamine Salicylate (Trolamine Salicylate 10 % Cream 85 Gm Tube) 1 appl TOPICAL BID PRN; Protocol PRN Reason: Pain, Mild (Pain Scale 1-3) Last Admin: 04/19/24 20:23 Dose: 1 appl Documented By: ANGELA Labs 04/22/24 07:41 04/22/24 07:41 Labs: Laboratory Results - last 24 hr 04/21/24 04/21/24 04/21/24 07:55 12:37 15:42 MCV MCH MCHC RDW Plt Count MPV Immature Gran % (Auto) Neut % (Auto) Lymph % (Auto) [place] % (Auto) Eos % (Auto) Baso % (Auto) Lymph # (Auto) [place] # (Auto) Eos # (Auto) Baso # (Auto) Abs Immat Gran (auto) Absolute Neuts (auto) Absolute Nucleated RBC Nucleated RBC % (auto) Anion Gap 19 Estim Creat Clear Calc 6.3 Estimated GFR 5 POC Glucose 227 H 118 H Random Glucose 161 H Calcium 9.8 Phosphorus 4.9 H Magnesium 2.5 04/21/24 04/22/24 04/22/24 21:12 06:54 07:41 MCV 101.6 H MCH 32.6 MCHC 32.1 RDW 15.7 Plt Count 225 MPV 10.5 Immature Gran % (Auto) 0.5 H Neut % (Auto) 65.1 Lymph % (Auto) 20.6 [place] % (Auto) 9.9 Eos % (Auto) 3.6 Baso % (Auto) 0.3 Lymph # (Auto) 1.3 [place] # (Auto) 0.6 Eos # (Auto) 0.2 Baso # (Auto) 0.0 Abs Immat Gran (auto) 0.03 Absolute Neuts (auto) 4.2 Absolute Nucleated RBC 0.000 Nucleated RBC % (auto) 0.0 Anion Gap 23 H Estim Creat Clear Calc 5.1 Estimated GFR 4 POC Glucose 199 H 153 H Random Glucose 163 H Calcium 9.7 Phosphorus 5.6 H Magnesium 2.5 Microbiology Microbiology Results: Microbiology 04/19/24 08:04 Blood Culture - Preliminary Blood - Venous No growth after 48 hours. 04/19/24 08:04 Blood Culture - Preliminary Blood - Venous No growth after 48 hours. Assessment and Plan (1) Hypertensive emergency: Status: Acute Plan 69 year old female with history of COPD, hypertension, T2DM, CHF, ESRD on HD //, last session 04/18, presenting initially to the emergency department on 04/19 w/ dyspnea, found to be hypertensive, hypoxic, volume overload, and hyperkalemia requiring CPAP and nitro gtt, admitted ICU for emergent hemodialysis. Received HD 04/19 and volume status and hypoxia improved. She was downgraded to the medical floor 04/20 Hyperkalemia secondary to ESRD Lokelma x1 now Plan for dialysis now ESRD last HD 04/19, 04/21 nephrology following>resume normal // schedule hypertensive urgency due to volume overload s/p nitro ggt bp uncontrolled, resumed on baseline meds check manual bp only as there is discrepancy with automated bp can use prn hydralazine if necessary for SBP >170 DM SSI, POCs, ADA diet leukocytosis likely reactive, pt remains afebrile started on empiric ceftriaxone in ICU, but no infectious process found thus far, stopped CXR negative for infection, blood cultures negative to date wbc normalized h/o OUD suboxone tobacco use disorder NRT dvt ppx - heparin Full code Attending Dr. Combs Quality Stroke Does the patient have a stroke diagnosis?: No VTE Prior VTE?: No VTE Risk Level:: Medical - moderate - high VTE Device Contraindication: N/A - Device Ordered VTE Drug Contraindication: N/A - Med Ordered
[2024-04-22] MEDS: ondansetron HCL 4 MG/2 ML VIAL IVPUSH (10:24)
[2024-04-22] MEDS: Sodium Zirconium Cyclosilicate 10 GM POWD.PACK PO (10:25)
[2024-04-22 10:55] LABS: Glucose, Whole Blood 166 mg/dL (60-115)
--- NOTE | 2024-04-22 14:19 | P.CDIM_ITS ---
PROVIDER RESPONSE TEXT: To clarify, the appropriate diagnosis supported by the clinical indicators: Other (explain): fluid overload from ESRD QUERY TEXT: PHYSICIAN'S DOCUMENTATION REQUEST Date of Query: 04/22/2024 12:02 PM EST Patient Name: Cruz Muller Admit Date: 04/19/2024 Dear Angelica Ashby BLUNGER, A review of the medical record indicates additional documentation may be needed. Please review below and update the documentation accordingly. Clinical Indicators: BNP 4619 PMH CHF edema and dyspnea, rales Please provide further specificity regarding the most likely type and acuity of CHF you are evaluatin g, treating, or monitoring. Systolic Please specify if Acute, Chronic, or Acute on chronic, or Unable to determine Diastolic Please specify if Acute, Chronic, or Acute on chronic, or Unable to determine Combined Systolic/Diastolic Please specify if Acute, Chronic, or Acute on chronic, or Unable to determine Other (explain) Clinically unable to determine (explain) Thank you, Khushboo Sanchez RN Use of terms such as suspected, likely, concern for, or probable (associated with a specific diagnosi s that is being evaluated, monitored, or treated as if it exists) are acceptable and can be coded in the inpatient se tting, when documented at the time of discharge. Please use your independent medical judgment in providing your response. THIS QUERY IS PART OF THE PERMANENT MEDICAL RECORD
--- NOTE | 2024-04-22 14:52 | P.DS_ITS ---
DS: Providers Provider Date of admission: 04/19/24 09:01 Primary care physician: Sammy Vicente MD Consults: 04/19/24 09:06 Consult to Nephrology Stat Consulting Provider: [facility] Reason for consultation: emergent HD needs Has provider been notified: Yes DS: Diagnosis Discharge Diagnosis (1) Hypertensive emergency: Status: Acute DS: Summary Hospital Course Hospital Course: History and physical as per admitting provider. Patient is a 69 Y F w/ COPD, hypertension, diabetes mellitus type II, c/b CHF, ESRD on hemodialysis T//, last session 04/18, presenting initially to the emergency department on 04/19 w/ dyspnea, found to be hypertension, hypoxic, c/f volume overload, as well as hyperkalemic, started on CPAP and nitro gtt, admitted ICU for emergent hemodialysis 69-year-old patient admitted for hypertensive emergency, hypoxia, volume overload and hyperkalemia. Initially admitted to the ICU for emergent dialysis. Received dialysis 04 19, to in 04 22. She was to resume her regular schedule of Sunday, and Sunday. She did receive Lokelma for hyperkalemia. Status post nitro drip for hypertensive emergency, she does have a history of uncontrolled blood pressure. All of her baseline medications were continued and she had IV hydralazine ordered for systolic blood pressure less than 170. She was started on hydralazine 25 t.i.d. and she should continue this at home as well. Medication compliance is important as well as dialysis session compliant. Diabetes mellitus. Continue home medications Leukocytosis. Likely reactive, patient has remained afebrile. She was started empirically on Rocephin in the ICU but no infectious process was found therefore it was stopped. Chest x-ray and blood cultures were negative. History of substance abuse. Continue Suboxone History of tobacco use. Encouraged the importance of smoking cessation, may use nicotine replacement products for assistance with this. Physical Exam Vital Signs: Vital Signs: Last Vital Signs Temp 98.7 F 04/22/24 10:58 Pulse 73 04/22/24 10:58 Resp 18 04/22/24 10:58 BP 160/78 H 04/22/24 10:58 Pulse Ox 94 04/22/24 10:58 O2 Del Method Room Air 04/22/24 10:58 FiO2 30 04/19/24 15:00 BMI result Body Mass Index 29.0 DS: Data Data Completed and Pending Completed studies during hospitalization [Text1]: Procedures Assistance with Respiratory Ventilation, Less than 24 Consecutive Hours, Continuous Positive Airway Pressure (04/14/22) Excision of Left Kidney, Percutaneous Approach, Diagnostic (02/25/21) Excision of Right Kidney, Percutaneous Approach, Diagnostic (10/22/20) Fluoroscopy of Superior Vena Cava using Low Osmolar Contrast, Guidance (08/07/22) Insertion of Endotracheal Airway into Trachea, Via Natural or Artificial Opening (10/12/21) Insertion of Infusion Device into Right Atrium, Percutaneous Approach (08/07/22) Insertion of Infusion Device into Superior Vena Cava, Percutaneous Approach (04/17/23) Insertion of Tunneled Vascular Access Device into Chest Subcutaneous Tissue and Fascia, Percutaneous Approach (04/17/23) Performance of Urinary Filtration, Intermittent, Less than 6 Hours Per Day (04/17/23) Removal of Totally Implantable Vascular Access Device from Trunk Subcutaneous Tissue and Fascia, Open Approach (08/07/22) Respiratory Ventilation, 24-96 Consecutive Hours (10/12/21) Transfusion of Nonautologous Red Blood Cells into Peripheral Vein, Percutaneous Approach (02/25/21) Ultrasonography of Superior Vena Cava, Guidance (04/17/23) Labs on day of discharge: Laboratory Results - last 24 hr 04/21/24 04/21/24 04/22/24 15:42 21:12 06:54 WBC RBC Hgb Hct MCV MCH MCHC RDW Plt Count MPV Immature Gran % (Auto) Neut % (Auto) Lymph % (Auto) [place] % (Auto) Eos % (Auto) Baso % (Auto) Lymph # (Auto) [place] # (Auto) Eos # (Auto) Baso # (Auto) Abs Immat Gran (auto) Absolute Neuts (auto) Absolute Nucleated RBC Nucleated RBC % (auto) Sodium Potassium Chloride Carbon Dioxide Anion Gap BUN Creatinine Estim Creat Clear Calc Estimated GFR POC Glucose 118 H 199 H 153 H Random Glucose Calcium Phosphorus Magnesium 04/22/24 04/22/24 07:41 10:52 WBC 6.4 RBC 3.07 L Hgb 10.0 L Hct 31.2 L MCV 101.6 H MCH 32.6 MCHC 32.1 RDW 15.7 Plt Count 225 MPV 10.5 Immature Gran % (Auto) 0.5 H Neut % (Auto) 65.1 Lymph % (Auto) 20.6 [place] % (Auto) 9.9 Eos % (Auto) 3.6 Baso % (Auto) 0.3 Lymph # (Auto) 1.3 [place] # (Auto) 0.6 Eos # (Auto) 0.2 Baso # (Auto) 0.0 Abs Immat Gran (auto) 0.03 Absolute Neuts (auto) 4.2 Absolute Nucleated RBC 0.000 Nucleated RBC % (auto) 0.0 Sodium 135 Potassium 6.2 H* Chloride 92 L Carbon Dioxide 26 Anion Gap 23 H BUN 81 H Creatinine 9.70 H* Estim Creat Clear Calc 5.1 Estimated GFR 4 POC Glucose 166 H Random Glucose 163 H Calcium 9.7 Phosphorus 5.6 H Magnesium 2.5 Preliminary micro results at discharge 04/19/24 08:04 Blood Culture - Preliminary Blood - Venous No growth after 48 hours. 04/19/24 08:04 Blood Culture - Preliminary Blood - Venous No growth after 48 hours. Discharge Plan Discharge Patient Disposition: Home Health Service Discharge Diagnosis: Volume overload Hypertensive emergency Referrals: Sammy Vicente MD [Primary Care Provider] - 1 Week Discharge Medications: New hydralazine 25 mg Tablet 25 mg PO TID Qty: 90 0RF Protocol: Hold for SBP< HOLD for SBP < : 90 Continued pantoprazole 40 mg Tablet,Delayed Release (Dr/Ec) 40 mg PO DAILY@0630 melatonin 5 mg Tablet 5 mg PO BEDTIME PRN (Reason: Sleep) aspirin 81 mg tablet,delayed release (DR/EC) 1 tab PO DAILY albuterol sulfate [Ventolin HFA] 90 mcg/actuation HFA aerosol inhaler 2 puff INHALATION Q4H PRN (Reason: wheezing) ondansetron 4 mg tablet,disintegrating 4 mg PO BID PRN (Reason: nausea and vomiting) albuterol sulfate 2.5 mg /3 mL (0.083 %) solution for nebulization 1 amp inhalation TID PRN (Reason: Shortness Of Breath) isosorbide dinitrate 30 mg Tablet 30 mg PO TID Rx Instructions: allow nitrate-free interval of 12-14 hrs per 24-hr period Elle-Sharifa Rx 1-60-300 mg-mg-mcg tablet 1 tab PO DAILY buprenorphine-naloxone 12-3 mg film 1 film sublingual DAILY Lokelma 10 gram powder in packet 10 g PO MOWEFR@0900 amlodipine 10 mg tablet 10 mg PO DAILY glucose 4 gram tablet,chewable 16 g PO Q15M PRN (Reason: hypoglycemia) calcium acetate(phosphat bind) 667 mg capsule 667 mg PO DAILY PRN (Reason: snack) hydrocortisone 2.5 % cream with perineal applicator 1 appl [place] BID PRN (Reason: pain) clonidine HCl 0.1 mg tablet 0.1 mg PO TID mirtazapine 15 mg tablet 15 mg PO BEDTIME calcium acetate(phosphat bind) 667 mg capsule 1,334 mg PO TIDWM lactulose 10 gram/15 mL solution 20 g PO DAILY PRN (Reason: constipation) nicotine 14 mg/24 hr patch 24 hour 1 patch topical DAILY acetaminophen 500 mg tablet 500 mg PO TID PRN (Reason: Pain) diclofenac sodium 1 % gel 2 g topical BID PRN (Reason: Pain) fluticasone propionate 110 mcg/actuation HFA aerosol inhaler 1 puff INHALATION BID carvedilol 25 mg tablet 25 mg PO BID losartan 50 mg tablet 50 mg PO DAILY trazodone 50 mg tablet 50 mg PO BEDTIME Diet: Advance to usual diet Activity on Discharge: As tolerated Stand Alone Forms: Patient Portal Discharge page Print Language: Lithuanian Care Plan Goals: Continue regular dialysis schedule of Sunday, and Sunday Health Concerns: Volume overload Hypertensive emergency Plan of Treatment: Follow-up with primary care provider as needed Take all medications as prescribed Assessment: Three dialysis sessions during hospitalization for volume overload and hypertensive urgency
[2024-04-22 16:40] LABS: Glucose, Whole Blood 145 mg/dL (60-115)
[2024-04-22 20:09] LABS: Glucose, Whole Blood 182 mg/dL (60-115)
[2024-04-22] MEDS: traZODone HCL 50 MG TABLET PO (20:25)
[2024-04-22] MEDS: Mirtazapine 15 MG TABLET PO (20:36)
--- NOTE | 2024-04-22 21:52 | PM.PNNEP ---
Subjective Subjective Date of Service: 04/22/24 Interval history: Seen and exameind,events noted Physical Exam Vital Signs: Vital Signs: Last Vital Signs Temp 98.0 F 04/22/24 20:00 Pulse 84 04/22/24 20:00 Resp 16 04/22/24 20:00 BP 170/85 H 04/22/24 20:00 Pulse Ox 96 04/22/24 20:00 O2 Del Method Room Air 04/22/24 20:00 FiO2 30 04/19/24 15:00 BMI result Body Mass Index 29.0 Const: Other: appreciable dyspnea w/ CPAP in place, though no [place] respiratory distress General: cooperative, healthy appearing, comfortable, no acute distress, well developed, alert, awake and Physically active Orientation/consciousness: patient oriented x3 HEENT: Head: Yes normal to inspection, Yes normocephalic and Yes atraumatic Eyes: General: appearance normal, both eyes and all related structures Neck: Neck: Yes normal visual inspection, Yes full ROM, Yes no meningeal signs, Yes trachea midline and Yes supple Chest: Chest palpation & inspection: normal inspection of the chest Resp: Other: no appreciable rales, rhonchi, wheezing Effort & Inspection: normal respiratory effort Cardio: Rate: regular rate Rhythm: regular rhythm GI: Inspection: Yes normal to inspection, No Abdominal wall edema and No distended Palpation (GI): Soft to palpation, not firm, nontender, no guarding and not rigid Skin: General skin exam: no rashes or lesions noted Neuro: General: patient oriented x3, tone normal, moves all extremities, no meningeal signs and no focal motor deficits Extrem: Other: 1+ pitting edema to bilateral shins General: Yes normal to inspection, Yes full ROM and Yes capillary refill normal Psych: Appearance: grossly normal Objective Data Labs 04/22/24 07:41 04/22/24 07:41 Labs: Laboratory Results - last 24 hr 04/22/24 04/22/24 04/22/24 06:54 07:41 10:52 WBC 6.4 RBC 3.07 L Hgb 10.0 L Hct 31.2 L MCV 101.6 H MCH 32.6 MCHC 32.1 RDW 15.7 Plt Count 225 MPV 10.5 Immature Gran % (Auto) 0.5 H Neut % (Auto) 65.1 Lymph % (Auto) 20.6 [place] % (Auto) 9.9 Eos % (Auto) 3.6 Baso % (Auto) 0.3 Lymph # (Auto) 1.3 [place] # (Auto) 0.6 Eos # (Auto) 0.2 Baso # (Auto) 0.0 Abs Immat Gran (auto) 0.03 Absolute Neuts (auto) 4.2 Absolute Nucleated RBC 0.000 Nucleated RBC % (auto) 0.0 Sodium 135 Potassium 6.2 H* Chloride 92 L Carbon Dioxide 26 Anion Gap 23 H BUN 81 H Creatinine 9.70 H* Estim Creat Clear Calc 5.1 Estimated GFR 4 POC Glucose 153 H 166 H Random Glucose 163 H Calcium 9.7 Phosphorus 5.6 H Magnesium 2.5 04/22/24 04/22/24 16:36 20:01 WBC RBC Hgb Hct MCV MCH MCHC RDW Plt Count MPV Immature Gran % (Auto) Neut % (Auto) Lymph % (Auto) [place] % (Auto) Eos % (Auto) Baso % (Auto) Lymph # (Auto) [place] # (Auto) Eos # (Auto) Baso # (Auto) Abs Immat Gran (auto) Absolute Neuts (auto) Absolute Nucleated RBC Nucleated RBC % (auto) Sodium Potassium Chloride Carbon Dioxide Anion Gap BUN Creatinine Estim Creat Clear Calc Estimated GFR POC Glucose 145 H 182 H Random Glucose Calcium Phosphorus Magnesium Microbiology Microbiology Results: Microbiology 04/19/24 08:04 Blood - Venous Blood Culture - Preliminary No growth after 48 hours. 04/19/24 08:04 Blood - Venous Blood Culture - Preliminary No growth after 48 hours. Procedures Date of Service Date of Service: 04/22/24 Assessment & Plan Assessment and plan (1) Volume overload: Status: Acute (2) ESRD (end stage renal disease) on dialysis: Status: Acute Plan 69 yo 69 Y F w/ COPD, hypertension, diabetes mellitus type II, c/b CHF, ESRD on hemodialysis T//, last session 04/18( holiday schedule), presented to [facility] for non invasive ventilation and emergent dialysis esrd Volume overload HTn urgency: BP cont to run high HyperK REC: HD today, low K doet; and incr BP meds; incr BP meds; d/c palnning Time Spent With Patient Time: Total time managing care of this patient today ____ minutes. Progress Note: Quality Stroke Does the patient have a stroke diagnosis?: No
[2024-04-23] VITALS (12 sets, daily range): BP systolic 138–182; BP diastolic 58–79; PULSE 56–72; RESP 15–20; TEMP 36–36.6; O2SAT 94–100
[2024-04-23] MEDS: Heparin Sodium,Porcine 5,000 UNIT/ML VIAL 5000 UNIT SUBCUT ×3 (06:22→20:32)
[2024-04-23] MEDS: Omeprazole 20 MG CAPSULE.DR PO (06:22)
[2024-04-23 06:35] LABS: MANUAL DIFF FLAG NO
[2024-04-23 06:53] LABS: Basophils Percent Auto 0.4 % (0-2); Eosinophils Absolute Auto 0.2 X10*3/uL (0.0-0.4); Eosinophils Percent Auto 3.1 % (0-4); Hematocrit 35.4 % (37.0-47.0); Hemoglobin 11.4 g/dl (12.0-16.0); Imm Gran Abs Auto 0.04 X10*3/uL (0.00-0.03); Imm Gran Pct Auto 0.6 % (0.0-0.4); Lymphocytes Absolute Auto 1.4 X10*3/uL (1.2-4.9); Lymphocytes Percent Auto 19.2 % (20-40); Mean Corpuscular HGB Conc 32.2 g/dl (31.0-35.0); Mean Corpuscular Hemoglobin 32.9 pg (27.0-33.0); Mean Platelet Volume 10.3 fL (9.4-12.3); Monocytes Absolute Auto 0.6 X10*3/uL (0.1-1.2); Monocytes Percent Auto 8.1 % (2-11); Neutrophils Absolute Auto 4.9 x10*3/uL (2.0-8.3); Neutrophils Percent Auto 68.6 % (45-73); Platelet Count 266 X10*3/uL (160-400); Red Blood Count 3.47 X10*6/uL (4.20-5.50); Red Cell Distribution Width 15.7 % (11.0-16.0); White Blood Count 7.2 X10*3/uL (4.8-10.8)
[2024-04-23 07:11] LABS: Anion Gap 18 (12-20); Blood Urea Nitrogen 37 mg/dL (9-16); Calcium 10.1 mg/dL (8.4-10.2); Carbon Dioxide 23 mmol/L (22-29); Chloride 95 mmol/L (96-108); Creatinine Clr Calc Pharmacy 8.5; Estimated Glomerular Filt Rate 7; Glucose Random 177 mg/dL (60-115); Magnesium 2.3 mg/dL (1.6-2.6); Phosphorus 5.2 mg/dL (2.7-4.5); Potassium 5.4 mmol/L (3.3-5.1); Sodium 131 mmol/L (135-145)
[2024-04-23] MEDS: Fluticasone Propionate 100 MCG BLST.W.DEV 1 PUFF INHALE ×2 (07:30→20:15)
[2024-04-23 08:09] LABS: Glucose, Whole Blood 153 mg/dL (60-115)
[2024-04-23] MEDS: Sodium Zirconium Cyclosilicate 10 GM POWD.PACK PO (08:20)
[2024-04-23] MEDS: Nicotine 14 MG PATCH.TD24 TRANSDERMA (08:22)
[2024-04-23] MEDS: Insulin Lispro 100 UNIT/ML 3 ML VIAL SUBCUT ×3 (08:23→17:27)
[2024-04-23] MEDS: Calcium Acetate 667 MG CAPSULE 1334 MG PO ×3 (08:24→17:27)
[2024-04-23] MEDS: carvediloL 25 MG TABLET PO ×2 (08:24→20:29)
[2024-04-23] MEDS: hydrALAZINE HCl 20 MG/ML VIAL 10 MG IVPUSH (08:24)
[2024-04-23] MEDS: Losartan Potassium 50 MG TABLET PO (08:24)
[2024-04-23] MEDS: Buprenorphine/Naloxone 12/3 mg FILM 1 FILM BUCCAL (08:24)
[2024-04-23] MEDS: Aspirin 81 MG TAB.CHEW PO (08:25)
[2024-04-23] MEDS: hydrALAZINE HCl 50 MG TABLET PO ×3 (08:25→20:28)
[2024-04-23] MEDS: Isosorbide Dinitrate 20 MG TABLET 40 MG PO ×3 (08:25→17:27)
[2024-04-23] MEDS: amLODIPine Besylate 10 MG TABLET PO (08:25)
[2024-04-23] MEDS: cloNIDine HCL 0.1 MG TABLET PO ×3 (08:25→20:29)
[2024-04-23] MEDS: 0.9 % Sodium Chloride Flush 3 ML SYRINGE IVFLUSH ×3 (08:26→20:34)
[2024-04-23] MEDS: levalbuterol HCL 1.25 MG/3 ML VIAL.NEB INHALE ×2 (09:14→18:08)
[2024-04-23] MEDS: Acetaminophen 325 MG TABLET 975 MG PO ×2 (11:17→20:31)
[2024-04-23 11:42] LABS: Glucose, Whole Blood 152 mg/dL (60-115)
--- NOTE | 2024-04-23 11:48 | HO.PM.IMPN ---
Subjective Subjective Date of Service: 04/23/24 Interval History: still sob Physical Exam Vital Signs: Vital Signs: Last Vital Signs Temp 97.9 F 04/23/24 11:15 Pulse 68 04/23/24 11:15 Resp 15 04/23/24 11:15 BP 176/58 H 04/23/24 11:15 Pulse Ox 97 04/23/24 11:15 O2 Del Method Room Air 04/23/24 11:15 FiO2 30 04/19/24 15:00 BMI result Body Mass Index 29.0 General: AO X 3, sob Resp: diminished bilateral, no accessory muscles used CVS: S1,S2,RRR GI: soft, non tender, non distended Neuro: motor grossly intact, alert Psych: appropriate affect, appropriate insight Objective Data Active Medications Acetaminophen (Acetaminophen 325 Mg Tablet) 975 mg PO Q6H PRN PRN Reason: Pain, Mild (Pain Scale 1-3) Last Admin: 04/23/24 11:17 Dose: 975 mg Documented By: CHRISTI Amlodipine Besylate (Amlodipine Besylate 10 Mg Tablet) 10 mg PO DAILY [facility]; Protocol Last Admin: 04/23/24 08:25 Dose: 10 mg Documented By: CHRISTI Aspirin (Aspirin 81 Mg Tab.Chew) 81 mg PO DAILY [facility] Last Admin: 04/23/24 08:25 Dose: 81 mg Documented By: CHRISTI Buprenorphine/Naloxone (Buprenorphine/Naloxone 12/3 Mg Film) 1 film BUCCAL DAILY [facility] Last Admin: 04/23/24 08:24 Dose: 1 film Documented By: CHRISTI Calcium Acetate (Calcium Acetate 667 Mg Capsule) 1,334 mg PO TIDWM [facility] Last Admin: 04/23/24 11:21 Dose: 1,334 mg Documented By: CHRISTI Carvedilol (Carvedilol 25 Mg Tablet) 25 mg PO BID [facility]; Protocol Last Admin: 04/23/24 08:24 Dose: 25 mg Documented By: CHRISTI Clonidine HCl (Clonidine Hcl 0.1 Mg Tablet) 0.1 mg PO TID [facility]; Protocol Last Admin: 04/23/24 08:25 Dose: 0.1 mg Documented By: CHRISTI Fluticasone Propionate (Fluticasone Propionate 100 Mcg Blst.W.Dev) 1 puff INHALE RBID [facility] Last Admin: 04/23/24 07:30 Dose: 1 puff Documented By: HERLINDA Glucose (Glucose Gel 15 Gm Gel..Gram.) 15 gm PO Q15M PRN; Protocol PRN Reason: per Hypoglycemia Standing Ord. Heparin Sodium (Porcine) (Heparin Sodium,Porcine 5,000 Unit/Ml Vial) 5,000 unit SUBCUT Q8H [facility] Last Admin: 04/23/24 06:22 Dose: 5,000 unit Documented By: WENDY Hydralazine HCl (Hydralazine Hcl 20 Mg/Ml Vial) 10 mg IVPUSH Q6H PRN; Protocol PRN Reason: SBP>170 Last Admin: 04/23/24 08:24 Dose: 10 mg Documented By: CHRISTI Hydralazine HCl (Hydralazine Hcl 50 Mg Tablet) 50 mg PO TID [facility]; Protocol Last Admin: 04/23/24 08:25 Dose: 50 mg Documented By: CHRISTI Dextrose (D10) 250 mls @ 750 mls/hr IV Q15M PRN; Protocol PRN Reason: per Hypoglycemia Standing Ord. Insulin Human Lispro (Insulin Lispro 100 Unit/Ml 3 Ml Vial) 0 unit SUBCUT QIDACHS [facility]; Protocol Last Admin: 04/23/24 08:23 Dose: 2 unit Documented By: CHRISTI Isosorbide Dinitrate (Isosorbide Dinitrate 20 Mg Tablet) 40 mg PO 0800,1300,1800 [facility]; Protocol Last Admin: 04/23/24 08:25 Dose: 40 mg Documented By: CHRISTI Levalbuterol HCl (Levalbuterol Hcl 1.25 Mg/3 Ml Vial.Neb) 1.25 mg INHALE Q4H PRN PRN Reason: wheezing Last Admin: 04/23/24 09:14 Dose: 1.25 mg Documented By: HRELINDA Losartan Potassium (Losartan Potassium 50 Mg Tablet) 50 mg PO DAILY [facility]; Protocol Last Admin: 04/23/24 08:24 Dose: 50 mg Documented By: CHRISTI Mirtazapine (Mirtazapine 15 Mg Tablet) 15 mg PO BEDTIME [facility] Last Admin: 04/22/24 20:36 Dose: 15 mg Documented By: WENDY Nicotine (Nicotine 14 Mg Patch.Td24) 14 mg TRANSDERMA DAILY [facility] Last Admin: 04/23/24 08:22 Dose: 14 mg Documented By: CHRISTI Omeprazole (Omeprazole 20 Mg Capsule.) 20 mg PO DAILY@0630 [facility] Last Admin: 04/23/24 06:22 Dose: 20 mg Documented By: WENDY Ondansetron HCl (Ondansetron Hcl 4 Mg/2 Ml Vial) 4 mg IVPUSH Q6H PRN PRN Reason: Nausea and Vomiting Last Admin: 04/22/24 10:24 Dose: 4 mg Documented By: CHRISTI Sodium Chloride (0.9 % Sodium Chloride Flush 3 Ml Syringe) 3 ml IVFLUSH QSHIFT [facility] Last Admin: 04/23/24 08:26 Dose: 3 ml Documented By: CHRISTI Sodium Zirconium Cyclosilicate (Sodium Zirconium Cyclosilicate 10 Gm Powd.Pack) 10 gm PO MOWEFR@0900 [facility] Last Admin: 04/23/24 08:20 Dose: 10 gm Documented By: CHRISTI Trazodone HCl (Trazodone Hcl 50 Mg Tablet) 50 mg PO BEDTIME [facility] Last Admin: 04/22/24 20:25 Dose: 50 mg Documented By: WENDY Trolamine Salicylate (Trolamine Salicylate 10 % Cream 85 Gm Tube) 1 appl TOPICAL BID PRN; Protocol PRN Reason: Pain, Mild (Pain Scale 1-3) Last Admin: 04/19/24 20:23 Dose: 1 appl Documented By: ANGELA Labs 04/23/24 05:35 04/23/24 05:35 Labs: Laboratory Results - last 24 hr 04/22/24 04/22/24 04/23/24 16:36 20:01 05:35 MCV 102.0 H MCH 32.9 MCHC 32.2 RDW 15.7 Plt Count 266 MPV 10.3 Immature Gran % (Auto) 0.6 H Neut % (Auto) 68.6 Lymph % (Auto) 19.2 L [place] % (Auto) 8.1 Eos % (Auto) 3.1 Baso % (Auto) 0.4 Lymph # (Auto) 1.4 [place] # (Auto) 0.6 Eos # (Auto) 0.2 Baso # (Auto) 0.0 Abs Immat Gran (auto) 0.04 H Absolute Neuts (auto) 4.9 Absolute Nucleated RBC 0.000 Nucleated RBC % (auto) 0.0 Anion Gap 18 Estim Creat Clear Calc 8.5 Estimated GFR 7 POC Glucose 145 H 182 H Random Glucose 177 H Calcium 10.1 Phosphorus 5.2 H Magnesium 2.3 04/23/24 04/23/24 07:07 11:16 MCV MCH MCHC RDW Plt Count MPV Immature Gran % (Auto) Neut % (Auto) Lymph % (Auto) [place] % (Auto) Eos % (Auto) Baso % (Auto) Lymph # (Auto) [place] # (Auto) Eos # (Auto) Baso # (Auto) Abs Immat Gran (auto) Absolute Neuts (auto) Absolute Nucleated RBC Nucleated RBC % (auto) Anion Gap Estim Creat Clear Calc Estimated GFR POC Glucose 153 H 152 H Random Glucose Calcium Phosphorus Magnesium Assessment and Plan (1) Hypertensive emergency: Status: Acute Plan 69F PMH COPD, hypertension, diabetes, chronic diastolic CHF, end-stage renal disease presented with shortness of breaths Acute hypoxic respiratory failure secondary to acute on chronic diastolic CHF and fluid overload in the setting of end-stage renal disease and hypertensive emergency Significantly improved after hemodialysis and nitroglycerin Still hypertensive and short of breath, but on room air Continue amlodipine 10 mg daily, carvedilol 25 mg b.i.d., clonidine 0.1 mg t.i.d., Isordil 40 mg t.i.d., losartan 50 mg daily, hydralazine increased to 50 mg t.i.d. Continue hemodialysis Diabetes Insulin sliding scale Opiate dependence Continue Suboxone DVT prophylaxis with heparin subQ Full code reason for continued hospitalization: Still hypertensive and short of breath Quality Stroke Does the patient have a stroke diagnosis?: No VTE Prior VTE?: No VTE Risk Level:: Medical - moderate - high VTE Device Contraindication: N/A - Device Ordered VTE Drug Contraindication: N/A - Med Ordered
[2024-04-23] MEDS: ALPRAZolam 0.25 MG TABLET 0.125 MG PO (13:05)
[2024-04-23 17:01] LABS: Glucose, Whole Blood 190 mg/dL (60-115)
[2024-04-23] MEDS: polyethylene glycoL 3350 17 GM POWD.PACK PO (17:26)
--- NOTE | 2024-04-23 18:07 | P.PNNP_ITS ---
Subjective Subjective Date of Service: 04/23/24 Interval history: Seen and examined, evnets noted Physical Exam 2 Vital Signs: Vital Signs: Last Vital Signs Temp 97.7 F 04/23/24 16:00 Pulse 66 04/23/24 16:00 Resp 18 04/23/24 16:00 BP 138/73 04/23/24 16:00 Pulse Ox 96 04/23/24 16:00 O2 Del Method Room Air 04/23/24 16:00 FiO2 30 04/19/24 15:00 BMI result Body Mass Index 29.0 Const: Other: appreciable dyspnea w/ CPAP in place, though no aziza respiratory distress General: cooperative, healthy appearing, comfortable, no acute distress, well developed, alert, awake and Physically active Orientation/consciousness: patient oriented x3 HEENT: Head: Yes normal to inspection, Yes normocephalic and Yes atraumatic Eyes: General: appearance normal, both eyes and all related structures Neck: Neck: Yes normal visual inspection, Yes full ROM, Yes no meningeal signs, Yes trachea midline and Yes supple Chest: Chest palpation & inspection: normal inspection of the chest Resp: Other: no appreciable rales, rhonchi, wheezing Effort & Inspection: normal respiratory effort Cardio: Rate: regular rate Rhythm: regular rhythm GI: Inspection: Yes normal to inspection, No Abdominal wall edema and No distended Palpation (GI): Soft to palpation, not firm, nontender, no guarding and not rigid Skin: General skin exam: no rashes or lesions noted Neuro: General: patient oriented x3, tone normal, moves all extremities, no meningeal signs and no focal motor deficits Extrem: Other: 1+ pitting edema to bilateral shins General: Yes normal to inspection, Yes full ROM and Yes capillary refill normal Psych: Appearance: grossly normal Objective Data Labs 04/23/24 05:35 04/23/24 05:35 Labs: Laboratory Results - last 24 hr 04/22/24 04/23/24 04/23/24 20:01 05:35 07:07 WBC 7.2 RBC 3.47 L Hgb 11.4 L Hct 35.4 L MCV 102.0 H MCH 32.9 MCHC 32.2 RDW 15.7 Plt Count 266 MPV 10.3 Immature Gran % (Auto) 0.6 H Neut % (Auto) 68.6 Lymph % (Auto) 19.2 L [place] % (Auto) 8.1 Eos % (Auto) 3.1 Baso % (Auto) 0.4 Lymph # (Auto) 1.4 [place] # (Auto) 0.6 Eos # (Auto) 0.2 Baso # (Auto) 0.0 Abs Immat Gran (auto) 0.04 H Absolute Neuts (auto) 4.9 Absolute Nucleated RBC 0.000 Nucleated RBC % (auto) 0.0 Sodium 131 L Potassium 5.4 H Chloride 95 L Carbon Dioxide 23 Anion Gap 18 BUN 37 H Creatinine 5.87 H* Estim Creat Clear Calc 8.5 Estimated GFR 7 POC Glucose 182 H 153 H Random Glucose 177 H Calcium 10.1 Phosphorus 5.2 H Magnesium 2.3 04/23/24 04/23/24 11:16 16:57 WBC RBC Hgb Hct MCV MCH MCHC RDW Plt Count MPV Immature Gran % (Auto) Neut % (Auto) Lymph % (Auto) [place] % (Auto) Eos % (Auto) Baso % (Auto) Lymph # (Auto) [place] # (Auto) Eos # (Auto) Baso # (Auto) Abs Immat Gran (auto) Absolute Neuts (auto) Absolute Nucleated RBC Nucleated RBC % (auto) Sodium Potassium Chloride Carbon Dioxide Anion Gap BUN Creatinine Estim Creat Clear Calc Estimated GFR POC Glucose 152 H 190 H Random Glucose Calcium Phosphorus Magnesium Microbiology Microbiology Results: Microbiology 04/19/24 08:04 Blood - Venous Blood Culture - Preliminary No growth after 48 hours. 04/19/24 08:04 Blood - Venous Blood Culture - Preliminary No growth after 48 hours. Procedures Date of Service Date of Service: 04/23/24 Assessment & Plan Assessment and plan (1) Volume overload: Status: Acute (2) ESRD (end stage renal disease) on dialysis: Status: Acute Plan 69 yo 69 Y F w/ COPD, hypertension, diabetes mellitus type II, c/b CHF, ESRD on hemodialysis T//, last session 04/18( holiday schedule), presented to [facility] for non invasive ventilation and emergent dialysis esrd Volume overload HTn urgency: BP cont to run high HyperK REC: HD for tomorrow, lokelma for K > 5.3; cont low K doet; and incr BP meds; incr BP meds; d/c palnning Time Spent With Patient Time: Total time managing care of this patient today ____ minutes. Progress Note: Quality Stroke Does the patient have a stroke diagnosis?: No
[2024-04-23] MEDS: traZODone HCL 50 MG TABLET PO (20:30)
[2024-04-23] MEDS: Mirtazapine 15 MG TABLET PO (20:30)
[2024-04-23 20:35] LABS: Glucose, Whole Blood 133 mg/dL (60-115)
[2024-04-24 03:25] VITALS: BP 163/79; PULSE 75; RESP 18; TEMP 36.6; O2SAT 98
[2024-04-24] MEDS: Sennosides 8.6 MG TABLET 17.2 MG PO (04:59)
[2024-04-24] MEDS: Heparin Sodium,Porcine 5,000 UNIT/ML VIAL 5000 UNIT SUBCUT ×2 (04:59→13:21)
[2024-04-24] MEDS: Omeprazole 20 MG CAPSULE.DR PO (05:01)
[2024-04-24 07:46] VITALS: BP 164/78; PULSE 70; RESP 18; TEMP 36.3; O2SAT 97
[2024-04-24 07:56] LABS: Basophils Percent Auto 0.6 % (0-2); Eosinophils Absolute Auto 0.2 X10*3/uL (0.0-0.4); Eosinophils Percent Auto 3.9 % (0-4); Hematocrit 31.5 % (37.0-47.0); Hemoglobin 10.2 g/dl (12.0-16.0); Imm Gran Abs Auto 0.03 X10*3/uL (0.00-0.03); Imm Gran Pct Auto 0.6 % (0.0-0.4); Lymphocytes Absolute Auto 1.3 X10*3/uL (1.2-4.9); Lymphocytes Percent Auto 25.1 % (20-40); MANUAL DIFF FLAG NO; Mean Corpuscular HGB Conc 32.4 g/dl (31.0-35.0); Mean Corpuscular Hemoglobin 32.8 pg (27.0-33.0); Mean Corpuscular Volume 101.3 fL (80.0-98.0); Monocytes Absolute Auto 0.6 X10*3/uL (0.1-1.2); Monocytes Percent Auto 11.8 % (2-11); Neutrophils Absolute Auto 3.1 x10*3/uL (2.0-8.3); Platelet Count 218 X10*3/uL (160-400); Red Blood Count 3.11 X10*6/uL (4.20-5.50); Red Cell Distribution Width 15.9 % (11.0-16.0); White Blood Count 5.3 X10*3/uL (4.8-10.8)
[2024-04-24 07:56] LABS: Glucose, Whole Blood 167 mg/dL (60-115)
[2024-04-24] MEDS: Isosorbide Dinitrate 20 MG TABLET 40 MG PO ×2 (08:00→13:23)
[2024-04-24] MEDS: Insulin Lispro 100 UNIT/ML 3 ML VIAL SUBCUT ×2 (08:00→13:33)
[2024-04-24] MEDS: Nicotine 14 MG PATCH.TD24 TRANSDERMA (08:01)
[2024-04-24] MEDS: carvediloL 25 MG TABLET PO (08:01)
[2024-04-24] MEDS: Buprenorphine/Naloxone 12/3 mg FILM 1 FILM BUCCAL (08:01)
[2024-04-24] MEDS: hydrALAZINE HCl 50 MG TABLET PO ×2 (08:01→14:48)
[2024-04-24] MEDS: amLODIPine Besylate 10 MG TABLET PO (08:02)
[2024-04-24] MEDS: Aspirin 81 MG TAB.CHEW PO (08:02)
[2024-04-24] MEDS: Losartan Potassium 50 MG TABLET PO (08:02)
[2024-04-24] MEDS: cloNIDine HCL 0.1 MG TABLET PO ×2 (08:02→14:49)
[2024-04-24] MEDS: 0.9 % Sodium Chloride Flush 3 ML SYRINGE IVFLUSH (08:03)
[2024-04-24] MEDS: Acetaminophen 325 MG TABLET 975 MG PO (08:17)
[2024-04-24] MEDS: ondansetron HCL 4 MG/2 ML VIAL IVPUSH (08:22)
[2024-04-24] MEDS: Calcium Acetate 667 MG CAPSULE 1334 MG PO ×2 (08:23→13:32)
[2024-04-24] MEDS: Fluticasone Propionate 100 MCG BLST.W.DEV 1 PUFF INHALE (08:24)
[2024-04-24 08:30] LABS: Anion Gap 22 (12-20); Blood Urea Nitrogen 62 mg/dL (9-16); Calcium 9.3 mg/dL (8.4-10.2); Carbon Dioxide 21 mmol/L (22-29); Chloride 92 mmol/L (96-108); Estimated Glomerular Filt Rate 5; Glucose Fasting 165 mg/dL (60-99); Glucose Random 165 mg/dL (60-115); Sodium 129 mmol/L (135-145)
--- NOTE | 2024-04-24 09:14 | P.PNIM_ITS ---
Subjective Subjective Date of Service: 04/24/24 Interval History: sob improved Physical Exam 2 Vital Signs: Vital Signs: Last Vital Signs Temp 97.3 F 04/24/24 07:46 Pulse 70 04/24/24 07:46 Resp 18 04/24/24 07:46 BP 164/78 H 04/24/24 07:46 Pulse Ox 97 04/24/24 07:46 O2 Del Method Room Air 04/24/24 07:46 FiO2 30 04/19/24 15:00 BMI result Body Mass Index 29.0 Const: Other: appreciable dyspnea w/ CPAP in place, though no aziza respiratory distress General: cooperative, healthy appearing, comfortable, no acute distress, well developed, alert, awake and Physically active Orientation/consciousness: patient oriented x3 HEENT: Head: Yes normal to inspection, Yes normocephalic and Yes atraumatic Eyes: General: appearance normal, both eyes and all related structures Neck: Neck: Yes normal visual inspection, Yes full ROM, Yes no meningeal signs, Yes trachea midline and Yes supple Chest: Chest palpation & inspection: normal inspection of the chest Resp: Other: no appreciable rales, rhonchi, wheezing Effort & Inspection: normal respiratory effort Cardio: Rate: regular rate Rhythm: regular rhythm GI: Inspection: Yes normal to inspection, No Abdominal wall edema and No distended Palpation (GI): Soft to palpation, not firm, nontender, no guarding and not rigid Skin: General skin exam: no rashes or lesions noted Neuro: General: patient oriented x3, tone normal, moves all extremities, no meningeal signs and no focal motor deficits Extrem: Other: 1+ pitting edema to bilateral shins General: Yes normal to inspection, Yes full ROM and Yes capillary refill normal Psych: Appearance: grossly normal Objective Data Active Medications Acetaminophen (Acetaminophen 325 Mg Tablet) 975 mg PO Q6H PRN PRN Reason: Pain, Mild (Pain Scale 1-3) Last Admin: 04/24/24 08:17 Dose: 975 mg Documented By: TREY Amlodipine Besylate (Amlodipine Besylate 10 Mg Tablet) 10 mg PO DAILY [facility]; Protocol Last Admin: 04/24/24 08:02 Dose: 10 mg Documented By: TREY Aspirin (Aspirin 81 Mg Tab.Chew) 81 mg PO DAILY [facility] Last Admin: 12/05/24 08:02 Dose: 81 mg Documented By: TREY Buprenorphine/Naloxone (Buprenorphine/Naloxone 12/3 Mg Film) 1 film BUCCAL DAILY [facility] Last Admin: 04/24/24 08:01 Dose: 1 film Documented By: TREY Calcium Acetate (Calcium Acetate 667 Mg Capsule) 1,334 mg PO TIDWM [facility] Last Admin: 04/24/24 08:23 Dose: 1,334 mg Documented By: TREY Carvedilol (Carvedilol 25 Mg Tablet) 25 mg PO BID [facility]; Protocol Last Admin: 04/24/24 08:01 Dose: 25 mg Documented By: TREY Clonidine HCl (Clonidine Hcl 0.1 Mg Tablet) 0.1 mg PO TID [facility]; Protocol Last Admin: 04/24/24 08:02 Dose: 0.1 mg Documented By: TREY Fluticasone Propionate (Fluticasone Propionate 100 Mcg Blst.W.Dev) 1 puff INHALE RBID [facility] Last Admin: 04/24/24 08:24 Dose: 1 puff Documented By: ZORAIDA Glucose (Glucose Gel 15 Gm Gel..Gram.) 15 gm PO Q15M PRN; Protocol PRN Reason: per Hypoglycemia Standing Ord. Heparin Sodium (Porcine) (Heparin Sodium,Porcine 5,000 Unit/Ml Vial) 5,000 unit SUBCUT Q8H [facility] Last Admin: 04/24/24 04:59 Dose: 5,000 unit Documented By: LESVIA-OSCAR Hydralazine HCl (Hydralazine Hcl 20 Mg/Ml Vial) 10 mg IVPUSH Q6H PRN; Protocol PRN Reason: SBP>170 Last Admin: 04/23/24 08:24 Dose: 10 mg Documented By: RICCIAV Hydralazine HCl (Hydralazine Hcl 50 Mg Tablet) 50 mg PO TID [facility]; Protocol Last Admin: 04/24/24 08:01 Dose: 50 mg Documented By: TREY Dextrose (D10) 250 mls @ 750 mls/hr IV Q15M PRN; Protocol PRN Reason: per Hypoglycemia Standing Ord. Insulin Human Lispro (Insulin Lispro 100 Unit/Ml 3 Ml Vial) 0 unit SUBCUT QIDACHS [facility]; Protocol Last Admin: 04/24/24 08:00 Dose: 2 unit Documented By: TREY Isosorbide Dinitrate (Isosorbide Dinitrate 20 Mg Tablet) 40 mg PO 0800,1300,1800 [facility]; Protocol Last Admin: 04/24/24 08:00 Dose: 40 mg Documented By: TREY Levalbuterol HCl (Levalbuterol Hcl 1.25 Mg/3 Ml Vial.Neb) 1.25 mg INHALE Q4H PRN PRN Reason: wheezing Last Admin: 04/23/24 18:08 Dose: 1.25 mg Documented By: HERLINDA Losartan Potassium (Losartan Potassium 50 Mg Tablet) 50 mg PO DAILY [facility]; Protocol Last Admin: 04/24/24 08:02 Dose: 50 mg Documented By: TREY Mirtazapine (Mirtazapine 15 Mg Tablet) 15 mg PO BEDTIME [facility] Last Admin: 04/23/24 20:30 Dose: 15 mg Documented By: MATTHEW Nicotine (Nicotine 14 Mg Patch.Td24) 14 mg TRANSDERMA DAILY [facility] Last Admin: 04/24/24 08:01 Dose: 14 mg Documented By: TREY Omeprazole (Omeprazole 20 Mg Capsule.Dr) 20 mg PO DAILY@0630 [facility] Last Admin: 04/24/24 05:01 Dose: 20 mg Documented By: MATTHEW Ondansetron HCl (Ondansetron Hcl 4 Mg/2 Ml Vial) 4 mg IVPUSH Q6H PRN PRN Reason: Nausea and Vomiting Last Admin: 04/24/24 08:22 Dose: 4 mg Documented By: TREY Senna (Sennosides 8.6 Mg Tablet) 17.2 mg PO BEDTIME PRN PRN Reason: Constipation Last Admin: 04/24/24 04:59 Dose: 17.2 mg Documented By: MATTHEW Sodium Chloride (0.9 % Sodium Chloride Flush 3 Ml Syringe) 3 ml IVFLUSH QSHIFT [facility] Last Admin: 04/24/24 08:03 Dose: 3 ml Documented By: TREY Sodium Zirconium Cyclosilicate (Sodium Zirconium Cyclosilicate 10 Gm Powd.Pack) 10 gm PO MOWEFR@0900 [facility] Last Admin: 04/23/24 08:20 Dose: 10 gm Documented By: CHRISTI Trazodone HCl (Trazodone Hcl 50 Mg Tablet) 50 mg PO BEDTIME [facility] Last Admin: 04/23/24 20:30 Dose: 50 mg Documented By: MATTHEW Trolamine Salicylate (Trolamine Salicylate 10 % Cream 85 Gm Tube) 1 appl TOPICAL BID PRN; Protocol PRN Reason: Pain, Mild (Pain Scale 1-3) Last Admin: 04/19/24 20:23 Dose: 1 appl Documented By: ANGELA Labs 04/24/24 07:04 04/24/24 07:04 Labs: Laboratory Results - last 24 hr 04/23/24 04/23/24 04/23/24 11:16 16:57 20:29 MCV MCH MCHC RDW Plt Count MPV Immature Gran % (Auto) Neut % (Auto) Lymph % (Auto) [place] % (Auto) Eos % (Auto) Baso % (Auto) Lymph # (Auto) [place] # (Auto) Eos # (Auto) Baso # (Auto) Abs Immat Gran (auto) Absolute Neuts (auto) Absolute Nucleated RBC Nucleated RBC % (auto) Anion Gap Estim Creat Clear Calc Estimated GFR POC Glucose 152 H 190 H 133 H Random Glucose Fasting Glucose Calcium 04/24/24 04/24/24 07:04 07:46 MCV 101.3 H MCH 32.8 MCHC 32.4 RDW 15.9 Plt Count 218 MPV 10.0 Immature Gran % (Auto) 0.6 H Neut % (Auto) 58.0 Lymph % (Auto) 25.1 [place] % (Auto) 11.8 H Eos % (Auto) 3.9 Baso % (Auto) 0.6 Lymph # (Auto) 1.3 [place] # (Auto) 0.6 Eos # (Auto) 0.2 Baso # (Auto) 0.0 Abs Immat Gran (auto) 0.03 Absolute Neuts (auto) 3.1 Absolute Nucleated RBC 0.000 Nucleated RBC % (auto) 0.0 Anion Gap 22 H Estim Creat Clear Calc 6.0 Estimated GFR 5 POC Glucose 167 H Random Glucose 165 H Fasting Glucose 165 H Calcium 9.3 D Assessment and Plan (1) Hypertensive emergency: Status: Acute Plan 69F PMH COPD, hypertension, diabetes, chronic diastolic CHF, end-stage renal disease presented with shortness of breaths Acute hypoxic respiratory failure secondary to acute on chronic diastolic CHF and fluid overload in the setting of end-stage renal disease and hypertensive emergency Significantly improved after hemodialysis and nitroglycerin hypertension and sob improved Continue amlodipine 10 mg daily, carvedilol 25 mg b.i.d., clonidine 0.1 mg t.i.d., Isordil 40 mg t.i.d., losartan 50 mg daily, hydralazine increased to 50 mg t.i.d. Continue hemodialysis hyperkalemia lokelnh hd monitor Diabetes Insulin sliding scale Opiate dependence Continue Suboxone DVT prophylaxis with heparin subQ Full code reason for continued hospitalization: hyperkalemia Quality Stroke Does the patient have a stroke diagnosis?: No VTE Prior VTE?: No VTE Risk Level:: Medical - moderate - high VTE Device Contraindication: N/A - Device Ordered VTE Drug Contraindication: N/A - Med Ordered
--- NOTE | 2024-04-24 09:22 | PM.DS ---
DS: Providers Provider Date of Service: 04/24/24 Date of admission: 04/19/24 09:01 Date of discharge: 04/24/24 Primary care physician: Sammy Vicente MD Consults: 04/19/24 09:06 Consult to Nephrology Stat Consulting Provider: [facility] Reason for consultation: emergent HD needs Has provider been notified: Yes DS: Diagnosis Discharge Diagnosis (1) Hypertensive emergency: Status: Acute DS: Summary Hospital Course Hospital Course: from initial hpi: Patient is a 69 Y F w/ COPD, hypertension, diabetes mellitus type II, c/b CHF, ESRD on hemodialysis T//, last session 04/18, presenting initially to the emergency department on 04/19 w/ dyspnea, found to be hypertension, hypoxic, c/f volume overload, as well as hyperkalemic, started on CPAP and nitro gtt, admitted ICU for emergent hemodialysis hospital course: Patient was admitted for acute hypoxic respiratory failure secondary to acute on chronic diastolic CHF and fluid overload in the setting of end-stage renal disease and hypertensive emergency. Was initially admitted to the intensive care unit and significantly improved after hemodialysis and nitroglycerin. Was downgraded to medical floor. Antihypertensives were adjusted. Patient was continued on amlodipine 10 mg daily, carvedilol 25 mg b.i.d. clonidine 0.1 mg t.i.d. Isordil 40 mg t.i.d., losartan 50 mg daily and hydralazine was added and titrated up to 50 mg t.i.d.. Symptoms and blood pressure significantly improved. For hyperkalemia received Lokelma and hemodialysis and will continue to be monitored as outpatient. For diabetes was continued on insulin sliding scale. For opiate dependence was continued on Suboxone. Patient is feeling better will be discharged home. Time Attestation Discharge Coordination Time (in mins): 34 Quality: Safe Use of Opioids Does Pt have an Active Cancer Diagnosis on the Problem List?: No Quality: Stroke Does the patient have a stroke diagnosis?: No Physical Exam Vital Signs: Vital Signs: Last Vital Signs Temp 97.3 F 04/24/24 07:46 Pulse 70 04/24/24 07:46 Resp 18 04/24/24 07:46 BP 164/78 H 04/24/24 07:46 Pulse Ox 97 12/05/24 07:46 O2 Del Method Room Air 04/24/24 07:46 FiO2 30 04/19/24 15:00 BMI result Body Mass Index 29.0 Const: General: cooperative, healthy appearing, comfortable, no acute distress, well developed, alert, awake and Physically active Orientation/consciousness: patient oriented x3 HEENT: Head: Yes normal to inspection, Yes normocephalic and Yes atraumatic Eyes: General: appearance normal, both eyes and all related structures Neck: Neck: Yes normal visual inspection, Yes full ROM, Yes no meningeal signs, Yes trachea midline and Yes supple Chest: Chest palpation & inspection: normal inspection of the chest Resp: Other: no appreciable rales, rhonchi, wheezing Effort & Inspection: normal respiratory effort Cardio: Rate: regular rate Rhythm: regular rhythm GI: Inspection: Yes normal to inspection, No Abdominal wall edema and No distended Palpation (GI): Soft to palpation, not firm, nontender, no guarding and not rigid Skin: General skin exam: no rashes or lesions noted Neuro: General: patient oriented x3, tone normal, moves all extremities, no meningeal signs and no focal motor deficits Extrem: Other: 1+ pitting edema to bilateral shins General: Yes normal to inspection, Yes full ROM and Yes capillary refill normal Psych: Appearance: grossly normal DS: Data Data Completed and Pending Completed studies during hospitalization [Text1]: Procedures Assistance with Respiratory Ventilation, Less than 24 Consecutive Hours, Continuous Positive Airway Pressure (04/14/22) Excision of Left Kidney, Percutaneous Approach, Diagnostic (02/25/21) Excision of Right Kidney, Percutaneous Approach, Diagnostic (10/22/20) Fluoroscopy of Superior Vena Cava using Low Osmolar Contrast, Guidance (08/07/22) Insertion of Endotracheal Airway into Trachea, Via Natural or Artificial Opening (10/12/21) Insertion of Infusion Device into Right Atrium, Percutaneous Approach (08/07/22) Insertion of Infusion Device into Superior Vena Cava, Percutaneous Approach (04/17/23) Insertion of Tunneled Vascular Access Device into Chest Subcutaneous Tissue and Fascia, Percutaneous Approach (04/17/23) Performance of Urinary Filtration, Intermittent, Less than 6 Hours Per Day (04/17/23) Removal of Totally Implantable Vascular Access Device from Trunk Subcutaneous Tissue and Fascia, Open Approach (08/07/22) Respiratory Ventilation, 24-96 Consecutive Hours (10/12/21) Transfusion of Nonautologous Red Blood Cells into Peripheral Vein, Percutaneous Approach (02/25/21) Ultrasonography of Superior Vena Cava, Guidance (04/17/23) Labs on day of discharge: Laboratory Results - last 24 hr 04/23/24 04/23/24 04/23/24 11:16 16:57 20:29 WBC RBC Hgb Hct MCV MCH MCHC RDW Plt Count MPV Immature Gran % (Auto) Neut % (Auto) Lymph % (Auto) [place] % (Auto) Eos % (Auto) Baso % (Auto) Lymph # (Auto) [place] # (Auto) Eos # (Auto) Baso # (Auto) Abs Immat Gran (auto) Absolute Neuts (auto) Absolute Nucleated RBC Nucleated RBC % (auto) Sodium Potassium Chloride Carbon Dioxide Anion Gap BUN Creatinine Estim Creat Clear Calc Estimated GFR POC Glucose 152 H 190 H 133 H Random Glucose Fasting Glucose Calcium 04/24/24 04/24/24 07:04 07:46 WBC 5.3 RBC 3.11 L Hgb 10.2 L Hct 31.5 L MCV 101.3 H MCH 32.8 MCHC 32.4 RDW 15.9 Plt Count 218 MPV 10.0 Immature Gran % (Auto) 0.6 H Neut % (Auto) 58.0 Lymph % (Auto) 25.1 [place] % (Auto) 11.8 H Eos % (Auto) 3.9 Baso % (Auto) 0.6 Lymph # (Auto) 1.3 [place] # (Auto) 0.6 Eos # (Auto) 0.2 Baso # (Auto) 0.0 Abs Immat Gran (auto) 0.03 Absolute Neuts (auto) 3.1 Absolute Nucleated RBC 0.000 Nucleated RBC % (auto) 0.0 Sodium 129 L Potassium 6.0 H* Chloride 92 L Carbon Dioxide 21 L Anion Gap 22 H BUN 62 H Creatinine 8.25 H* Estim Creat Clear Calc 6.0 Estimated GFR 5 POC Glucose 167 H Random Glucose 165 H Fasting Glucose 165 H Calcium 9.3 D Preliminary micro results at discharge 04/19/24 08:04 Blood Culture - Preliminary Blood - Venous No growth after 48 hours. 04/19/24 08:04 Blood Culture - Preliminary Blood - Venous No growth after 48 hours. Discharge Plan Discharge Anticipated Discharge Date/Time: 04/24/24 09:20 Patient Disposition: Home Health Service Discharge Diagnosis: Volume overload Hypertensive emergency Referrals: Sammy Vicente MD [Primary Care Provider] - 1 Week Discharge Medications: New hydralazine 50 mg Tablet 50 mg PO TID Qty: 270 0RF Protocol: Hold for SBP< HOLD for SBP < : 90 Continued pantoprazole 40 mg Tablet,Delayed Release (Dr/Ec) 40 mg PO DAILY@0630 melatonin 5 mg Tablet 5 mg PO BEDTIME PRN (Reason: Sleep) aspirin 81 mg tablet,delayed release (DR/EC) 1 tab PO DAILY albuterol sulfate [Ventolin HFA] 90 mcg/actuation HFA aerosol inhaler 2 puff INHALATION Q4H PRN (Reason: wheezing) ondansetron 4 mg tablet,disintegrating 4 mg PO BID PRN (Reason: nausea and vomiting) albuterol sulfate 2.5 mg /3 mL (0.083 %) solution for nebulization 1 amp inhalation TID PRN (Reason: Shortness Of Breath) isosorbide dinitrate 30 mg Tablet 30 mg PO TID Rx Instructions: allow nitrate-free interval of 12-14 hrs per 24-hr period Elle-Sharifa Rx 1-60-300 mg-mg-mcg tablet 1 tab PO DAILY buprenorphine-naloxone 12-3 mg film 1 film sublingual DAILY Lokelma 10 gram powder in packet 10 g PO MOWEFR@0900 amlodipine 10 mg tablet 10 mg PO DAILY glucose 4 gram tablet,chewable 16 g PO Q15M PRN (Reason: hypoglycemia) calcium acetate(phosphat bind) 667 mg capsule 667 mg PO DAILY PRN (Reason: snack) hydrocortisone 2.5 % cream with perineal applicator 1 appl [place] BID PRN (Reason: pain) clonidine HCl 0.1 mg tablet 0.1 mg PO TID mirtazapine 15 mg tablet 15 mg PO BEDTIME calcium acetate(phosphat bind) 667 mg capsule 1,334 mg PO TIDWM lactulose 10 gram/15 mL solution 20 g PO DAILY PRN (Reason: constipation) nicotine 14 mg/24 hr patch 24 hour 1 patch topical DAILY acetaminophen 500 mg tablet 500 mg PO TID PRN (Reason: Pain) diclofenac sodium 1 % gel 2 g topical BID PRN (Reason: Pain) fluticasone propionate 110 mcg/actuation HFA aerosol inhaler 1 puff INHALATION BID carvedilol 25 mg tablet 25 mg PO BID losartan 50 mg tablet 50 mg PO DAILY trazodone 50 mg tablet 50 mg PO BEDTIME Discharge Orders: Discharge Order (Routine); Ordered 04/24/24 Ordered By: Franck James Diet: Advance to usual diet Activity on Discharge: As tolerated Stand Alone Forms: Patient Portal Discharge page Print Language: Mauritian Care Plan Goals: Continue regular dialysis schedule of Sunday, and Sunday Health Concerns: Volume overload Hypertensive emergency Plan of Treatment: Follow-up with primary care provider as needed Take all medications as prescribed Assessment: see above
[2024-04-24 13:18] VITALS: BP 132/54; PULSE 64; RESP 18; TEMP 36.7; O2SAT 93
[2024-04-24 13:26] LABS: Glucose, Whole Blood 176 mg/dL (60-115)
[2024-04-24] MEDS: Sodium Zirconium Cyclosilicate 10 GM POWD.PACK PO (13:57)
--- NOTE | 2024-04-24 14:25 | MHC.CM.PN ---
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
[2024-04-24 15:53] VITALS: BP 138/56; PULSE 65; RESP 20; TEMP 36.4; O2SAT 99
[2024-04-24 16:11] LABS: Glucose, Whole Blood 146 mg/dL (60-115)
== END 2024-04-24 16:54 | disposition home or self-care (01) | DRG 640 ==
LOC: HO.ED 09:09 → HO.EDOVER 09:10 → HO.ICU 09:40 → HO.IMC 04-20 14:08
PROVIDERS: Nurse Practitioner Acute Care; Physician Assistant Medical; Admitting Provider Internal Medicine Critical Care Medicine; Emergency Provider Emergency Medicine; PCP Internal Medicine; Visit Provider Internal Medicine
DX: E87.70 Fluid overload, unspecified (principal); I50.33 Acute on chronic diastolic (congestive) heart failure; J96.01 Acute respiratory failure with hypoxia; N18.6 End stage renal disease; I16.1 Hypertensive emergency; F11.20 Opioid dependence, uncomplicated; I13.2 Hypertensive heart and chronic kidney disease with heart failure and with stage 5 chronic kidney disease, or end stage renal disease; E11.22 Type 2 diabetes mellitus with diabetic chronic kidney disease; E87.5 Hyperkalemia; Z20.822 Contact with and (suspected) exposure to COVID-19; Z99.2 Dependence on renal dialysis; Z79.51 Long term (current) use of inhaled steroids; Z79.899 Other long term (current) drug therapy
CPT/HCPCS: 0241U; 36415; 71045; 80048; 80076; 82803; 82947; 83605; 83735; 83880; 84100; 84484; 85025; 87040; 87493; 90999; 93005; 94640; 99285; J0360; J0613; J0696; J1644; J2305; J2405

== ENCOUNTER → 2024-04-19 07:22 | Outpatient (BNV) | payer OTHER, SELFPAY | PROVIDERS: Admitting Provider Internal Medicine Critical Care Medicine; Emergency Provider Emergency Medicine; PCP Internal Medicine; Visit Provider Internal Medicine | DX: R94.31 Abnormal electrocardiogram [ECG] [EKG] (principal) | CPT/HCPCS: 93010 ==

== ENCOUNTER → 2024-04-19 09:01 | Outpatient (BNV) | payer OTHER, SELFPAY | PROVIDERS: Admitting Provider Internal Medicine Critical Care Medicine; Emergency Provider Emergency Medicine; PCP Internal Medicine; Visit Provider Physician Assistant Medical | DX: I16.1 Hypertensive emergency (principal) | CPT/HCPCS: 99232; 99239; 99499 ==

== ENCOUNTER → 2024-04-19 09:01 | Outpatient (BNV) | payer OTHER, SELFPAY | PROVIDERS: Admitting Provider Internal Medicine Critical Care Medicine; Emergency Provider Emergency Medicine; PCP Internal Medicine; Visit Provider Internal Medicine Critical Care Medicine | DX: N18.6 End stage renal disease (principal); Z99.2 Dependence on renal dialysis; J96.01 Acute respiratory failure with hypoxia; I16.1 Hypertensive emergency | CPT/HCPCS: 99223; 99233 ==

== ENCOUNTER 2024-05-21 14:39 | Inpatient (IN) | payer OTHER, SELFPAY ==
[2024-05-21] VITALS (35 sets, daily range): BP systolic 107–229; BP diastolic 60–159; PULSE 62–119; RESP 16–36; TEMP 35.8–36.6; O2SAT 88–99; BMI 25.0
--- NOTE | 2024-05-21 | ECG_ITS ---
Test Reason : HYPERKALEMIA Blood Pressure : / mmHG Vent. Rate : 095 BPM Atrial Rate : 095 BPM P-R Int : 218 ms QRS Dur : 130 ms QT Int : 380 ms P-R-T Axes : -04 119 -32 degrees QTc Int : 477 ms Sinus rhythm with 1st degree A-V block Non-specific intra-ventricular conduction block Minimal voltage criteria for LVH, may be normal variant ( [place] product ) Cannot rule out Septal infarct , age undetermined Inferior infarct , age undetermined Abnormal ECG When compared with ECG of 21-MAY-2024 15:01, Significant changes have occurred Referred By: Gonzalo Will Electronically Signed By:CRISTIAN REMY MD
--- NOTE | ~2024-05-21 | XR_ITS ---
CLINICAL HISTORY: dyspnea 1 view chest x-ray Comparison: CR/SR - XR CHEST 1V - 04/19/24 07:24 EST Findings: Diffuse right-sided pulmonary opacities are increased. Bilateral interstitial opacities appear unchanged. No pneumothorax or large pleural effusion. Stable cardiomediastinal silhouette. Several old left rib fractures. Right hemodialysis catheter tips are near the atriocaval junction and in the right atrium. IMPRESSION: 1. Diffuse right-sided pulmonary opacities secondary to infection or atypical edema. 2. Bilateral interstitial opacities secondary to pneumonitis and/or edema. This document has been electronically signed by: Betty Cassidy DO on 05/21/2024 16:33:24
--- NOTE | ~2024-05-21 | XR_ITS ---
EXAMINATION: XR CHEST CLINICAL INFORMATION: pulmonary edema COMPARISON: Chest 05/21/2024 TECHNIQUE: Frontal view of the chest was obtained. FINDINGS: There is a right dialysis catheter tip in distal SVC. Heart size is borderline enlarged. There are bilateral patchy opacities throughout both lungs most prominent right lung which have slightly improved since 05/21/2024. There is suspicion for right pleural effusion with blunting of right CP angle. Mild spondylosis dorsal spine seen. XR/XR chest 1V IMPRESSION: Mild improvement in diffuse right-sided pulmonary opacities from earlier exam. No change in the right dialysis catheter tip. Suspect small right pleural effusion, new since the last exam. Electronically signed by: Orlando Dozier MD 05/22/2024 10:59 AM RE[facility]
--- NOTE | 2024-05-21 14:51 | ECG_ITS ---
Test Reason : DYSPNEA Blood Pressure : / mmHG Vent. Rate : 087 BPM Atrial Rate : 087 BPM P-R Int : 174 ms QRS Dur : 086 ms QT Int : 346 ms P-R-T Axes : -08 085 003 degrees QTc Int : 416 ms Poor data quality Normal sinus rhythm with sinus arrhythmia Normal ECG When compared with ECG of 19-APR-2024 07:37, Questionable change in QRS axis Non-specific change in ST segment in Inferior leads QT has shortened Referred By: Bushra Vallejo Electronically Signed By:CRISTIAN REMY MD
[2024-05-21] MEDS: Nitroglycerin 2 % Oint 1 GM Packet 1 INCH TRANSDERMA (15:08)
[2024-05-21] MEDS: Furosemide 100 MG/10 ML VIAL 80 MG IVPUSH (15:31)
[2024-05-21] MEDS: methylPREDNISolone Sod Succ 125 MG/2 ML VIAL 60 MG IVPUSH (15:33)
[2024-05-21 15:38] LABS: MANUAL DIFF FLAG NO
[2024-05-21 15:39] LABS: Basophils Percent Auto 0.3 % (0-2); Eosinophils Absolute Auto 0.3 X10*3/uL (0.0-0.4); Eosinophils Percent Auto 2.9 % (0-4); Hematocrit 40.2 % (37.0-47.0); Hemoglobin 13.1 g/dl (12.0-16.0); Imm Gran Abs Auto 0.05 X10*3/uL (0.00-0.03); Imm Gran Pct Auto 0.5 % (0.0-0.4); Lymphocytes Absolute Auto 1.5 X10*3/uL (1.2-4.9); Lymphocytes Percent Auto 16.5 % (20-40); Mean Corpuscular HGB Conc 32.6 g/dl (31.0-35.0); Mean Corpuscular Hemoglobin 33.3 pg (27.0-33.0); Mean Corpuscular Volume 102.3 fL (80.0-98.0); Mean Platelet Volume 10.3 fL (9.4-12.3); Monocytes Absolute Auto 0.5 X10*3/uL (0.1-1.2); Monocytes Percent Auto 5.3 % (2-11); Neutrophils Absolute Auto 6.9 x10*3/uL (2.0-8.3); Neutrophils Percent Auto 74.5 % (45-73); Platelet Count 267 X10*3/uL (160-400); Red Blood Count 3.93 X10*6/uL (4.20-5.50); Red Cell Distribution Width 15.5 % (11.0-16.0); White Blood Count 9.3 X10*3/uL (4.8-10.8)
[2024-05-21] MEDS: Albuterol Sulfate 7.5 MG, Albuterol/Iprat 2.5/0.5MG 3 ML 3 ML INHALE (15:43)
[2024-05-21 15:44] LABS: INTERNATIONAL NORM RATIO 0.9 (0.9-1.1); Prothrombin Time 10.1 SEC (10.9-12.4)
--- NOTE | 2024-05-21 15:48 | ED_ITS ---
HPI - SOB/Dyspnea General Stated Complaint: MISSED DIALYSIS Time Seen by Provider: 05/21/24 14:48 Source: patient, EMS and old records reviewed Mode of arrival: EMS Limitations: other (resp distress) History of Present Illness ED Provider: DANA BARON Narrative: 69 yo female with PMH of DM, ESRD MWF states she went Sunday - chest wall permacath, HTN, bacteremia, COPD - when she was here in April she was T Th S sessions for HD she tells me she went Sunday I am not sure if she went to HD. She reports diff breathing x 3 days, no fevers, no cough, has mild leg swelling. She denies pain other than low back. EMS brought her in with BP > 200, patient diaphoretic and anxious on my arrival to the room - immediate NIPPV, BP control MD elicited complaint: shortness of breath Pertinent past history: asthma and other Onset (ago): day(s) (3) Context: other (states she missed HD) Timing: progressively worsening Severity: severe Exacerbating factors: lying flat and exertion Relieving factors: oxygen and upright position Known history of: asthma and congestive heart failure Associated symptoms: orthopnea Treatment prior to arrival: none Related Data Home Medications ?Medication ?Instructions ?Recorded ?Confirmed melatonin 5 mg tablet 5 mg PO BEDTIME PRN Sleep 04/15/21 04/19/24 pantoprazole 40 mg tablet,delayed 40 mg PO DAILY@0630 04/15/21 04/19/24 release aspirin 81 mg tablet,delayed 1 tab PO DAILY 10/11/21 04/19/24 release albuterol sulfate 90 mcg/actuation 2 puff inhalation Q4H PRN wheezing 01/31/22 04/19/24 aerosol inhaler (Ventolin HFA) ondansetron 4 mg disintegrating 4 mg PO BID PRN nausea and vomiting 03/09/22 04/19/24 tablet albuterol sulfate 2.5 mg/3 mL 1 amp inhalation TID PRN Shortness 05/08/22 04/19/24 (0.083 %) solution for nebulization Of Breath isosorbide dinitrate 30 mg tablet 30 mg PO TID 07/10/22 04/19/24 calcium acetate(phosphat bind) 667 1,334 mg PO TIDWM 03/13/23 04/19/24 mg capsule clonidine HCl 0.1 mg tablet 0.1 mg PO TID 03/13/23 04/19/24 lactulose 10 gram/15 mL oral 20 g PO DAILY PRN constipation 03/13/23 04/19/24 solution mirtazapine 15 mg tablet 15 mg PO BEDTIME 03/13/23 04/19/24 acetaminophen 500 mg tablet 500 mg PO TID PRN Pain 10/16/23 04/19/24 diclofenac sodium 1 % topical gel 2 g topical BID PRN Pain 10/16/23 04/19/24 fluticasone propionate 110 1 puff inhalation BID 10/16/23 04/19/24 mcg/actuation HFA aerosol inhaler nicotine 14 mg/24 hr daily 1 patch topical DAILY 10/16/23 04/19/24 transdermal patch carvedilol 25 mg tablet 25 mg PO BID 01/28/24 04/19/24 losartan 50 mg tablet 50 mg PO DAILY 01/28/24 04/19/24 trazodone 50 mg tablet 50 mg PO BEDTIME 01/28/24 04/19/24 amlodipine 10 mg tablet 10 mg PO DAILY 04/19/24 04/19/24 buprenorphine 12 mg-naloxone 3 mg 1 film sublingual DAILY 04/19/24 04/19/24 sublingual film calcium acetate(phosphat bind) 667 667 mg PO DAILY PRN snack 04/19/24 04/19/24 mg capsule glucose 4 gram chewable tablet 16 g PO Q15M PRN hypoglycemia 04/19/24 04/19/24 hydrocortisone 2.5 % topical cream 1 appl [place] BID PRN pain 04/19/24 04/19/24 with perineal applicator sodium zirconium cyclosilicate 10 10 g PO MOWEFR@0900 04/19/24 04/19/24 gram oral powder packet (Lokelma) vitamin B comp no.3-folic acid 1 1 tab PO DAILY 04/19/24 04/19/24 mg-vit C 60 mg-biotin 300 mcg tablet ([facility]) Previous Rx's ?Medication ?Instructions ?Recorded hydralazine 50 mg tablet 50 mg PO TID #270 tabs 04/24/24 Allergies Allergy/AdvReac Type Severity Reaction Status Date / Time No Known Allergies Allergy Unverified 04/19/24 07:19 Review of Systems 2 Review of Systems: ROS unable to be obtained due to resp distress [facility] Past Medical History Medical History Diabetes mellitus Hemorrhoids that prolapse with straining, but retract spontaneously Hemorrhoids with complication ESRD on dialysis Delirium Sepsis Tachycardia Leukocytosis Fever End stage chronic kidney disease Congestive heart failure with left ventricular dysfunction ESRD (end stage renal disease) Hypertension Pulmonary congestion COVID-19 virus infection Asthma with COPD with exacerbation COVID ESRD (end stage renal disease) Hypertrophic cardiomyopathy Acute exacerbation of chronic obstructive pulmonary disease (COPD) Heart failure with preserved ejection fraction Constipation End stage renal disease on dialysis Ascites Anasarca Ischemic colitis Acute GI bleeding Anemia Dialysis patient, noncompliant Anemia in chronic kidney disease Opioid withdrawal Essential hypertension Surgical History No pertinent past surgical history Family History Family History Other Hypertension Social History Social History Household Members: Caregiver Housing: Assisted Living Facility Do you presently have visiting nurse or other home services: Yes Unable to assess alcohol history related to: Unknown Alcohol intake: former Comment: pt in dialysis at this time. Patient Tobacco Use Status: Never used Tobacco Tobacco use type: Cigarette Cigarette Packs Per Day: 2 Cigarettes Per Day: 40.0 Years Smoked: 50 +/- e-Cigarette/Vaping Use: Never Used Second Hand Smoke Exposure: No Substance Use Type: Marijuana Advance Directives: Yes Advance Directives on File: Yes Advance Directives Date on File: 04/17/22 service: No Current occupational status: disabled Physical Exam 2 Vital Signs: Vital Signs: Last Vital Signs Pulse 114 H 05/21/24 15:43 Resp 36 H 05/21/24 15:43 BP 208/159 H 05/21/24 15:31 Appearance: Alert. Oriented X3. Moderate acute distress. Eyes: Pupils equal, round and reactive to light. ENT: Pharynx normal. Neck: Normal inspection. Neck supple. + JVD CVS: Normal heart rate and rhythm. Pulses normal. Respiratory: Moderate respiratory distress - tachypnea and labored. Breath sounds rales throughout Abdomen: Soft and nontender. Skin: Skin warm and diaphoretic. Normal skin color. Extremities: 1+ pitting lower extremity edema. Neuro: Oriented X 3. No motor deficit. No sensory deficit. Medications Administered Discontinued Medications Generic Name Dose Route Start Last Admin Trade Name Goyo PRN Reason Stop Dose Admin Albuterol Sulfate 7.5 mg/ 0 mg 05/21/24 15:34 05/21/24 15:43 Albuterol/Ipratropium 3 ml INHALE 05/21/24 15:35 1 each ONCE ONE Administration Furosemide 80 mg 05/21/24 15:01 05/21/24 15:31 Furosemide 100 Mg/10 Ml Vial IVPUSH 05/21/24 15:02 80 mg ONCE ONE Administration Protocol Methylprednisolone Sodium Succinate 60 mg 05/21/24 15:01 05/21/24 15:33 Methylprednisolone Sod Succ 125 Mg/2 Ml Vial IVPUSH 05/21/24 15:02 60 mg ONCE ONE Administration Nitroglycerin 1 inch 05/21/24 14:51 05/21/24 15:08 Nitroglycerin 2 % Oint 1 Gm Packet TRANSDERMA 05/21/24 14:52 1 inch ONCE ONE Administration Medical Decision Making Medical Decision Making [facility] Narrative: 69 yo female with PMH of DM, ESRD MWF states she went Sunday - chest wall permacath, HTN, bacteremia, COPD here with c/o dyspnea, difficulty breathing for 3 days without fever, no chest pain at this time on arrival she is in distress with diffuse rales, edema, uncontrolled HTN - stat IV hydralazine, bipap, IV lasix, nitro paste if no improvement will escalate to nitro gtt - empiric calcium, lokelma. Anticipate emergent HD needs will consult Dr. Will in ICU. NO fevers to suggest infection and no chest pain to suggest ACS. Differential Diagnosis Differential Diagnoses: The differential diagnosis associated with the presentation includes pulm edema, asthma, uncontrolled HTN, Admission/Observation Consideration of admission/observation: Escalation of care including admission/observation considered admit for emergent HD Consult Healthcare Provider Management of the patient was discussed with: Last Model Maker Dr. Will aware 405pm pending placement for HD needs emergent Lab Data [facility] Lab Attestation statement: I reviewed the patient's lab results. 05/21/24 15:33 05/21/24 15:33 Labs: Lab Results 05/21/24 05/21/24 05/21/24 Range/Units 15:10 15:33 15:45 WBC 9.3 (4.8-10.8) X10*3/uL RBC 3.93 L D (4.20-5.50) X10*6/uL Hgb 13.1 D (12.0-16.0) g/dl Hct 40.2 D (37.0-47.0) % MCV 102.3 H (80.0-98.0) fL MCH 33.3 H (27.0-33.0) pg MCHC 32.6 (31.0-35.0) g/dl RDW 15.5 (11.0-16.0) % Plt Count 267 (160-400) X10*3/uL MPV 10.3 (9.4-12.3) fL Immature Gran % (Auto) 0.5 H (0.0-0.4) % Neut % (Auto) 74.5 H (45-73) % Lymph % (Auto) 16.5 L (20-40) % [place] % (Auto) 5.3 (2-11) % Eos % (Auto) 2.9 (0-4) % Baso % (Auto) 0.3 (0-2) % Lymph # (Auto) 1.5 (1.2-4.9) X10*3/uL [place] # (Auto) 0.5 (0.1-1.2) X10*3/uL Eos # (Auto) 0.3 (0.0-0.4) X10*3/uL Baso # (Auto) 0.0 (0.0-0.2) X10*3/uL Abs Immat Gran (auto) 0.05 H (0.00-0.03) X10*3/uL Absolute Neuts (auto) 6.9 (2.0-8.3) x10*3/uL Absolute Nucleated RBC 0.000 (0.0-0.012) X10*3/uL Nucleated RBC % (auto) 0.0 (0.0-0.2) /100WBC PT 10.1 L (10.9-12.4) SEC INR 0.9 (0.9-1.1) VBG pH (7.32-7.43) VBG pCO2 mmHg VBG pO2 mmHg VBG HCO3 (22-26) mmol/L VBG O2 Saturation % VBG Base Excess mmol/L Sodium 131 L (135-145) mmol/L Potassium 6.5 H* (3.3-5.1) mmol/L Chloride 89 L (96-108) mmol/L Carbon Dioxide 27 (22-29) mmol/L Anion Gap 22 H (12-20) BUN 40 H (9-16) mg/dL Creatinine 7.90 H* (0.5-1.4) mg/dL Estim Creat Clear Calc TNP Estimated GFR 5 Random Glucose 203 H (60-115) mg/dL Lactic Acid 1.2 (0.5-2.0) mmol/L Calcium 11.6 H D (8.4-10.2) mg/dL Magnesium 2.9 H (1.6-2.6) mg/dL Total Bilirubin 0.4 (0.0-1.0) mg/dL Direct Bilirubin 0.1 (0.0-0.5) mg/dL AST 31 (5-31) U/L ALT 15 (0-31) U/L Alkaline Phosphatase 151 H (39-117) U/L Troponin I High Sens 25.9 H (<3.5-17.0) ng/L B-Natriuretic Peptide 3639 H (<100) pg/mL Total Protein 8.3 H (6.5-8.0) g/dL Albumin 4.3 (3.5-5.0) g/dL Influenza Type A (PCR) NEGATIVE (Negative) Influenza Type B (PCR) NEGATIVE (Negative) RSV RNA Qual (PCR) NEGATIVE (Negative) SARS-CoV-2 RNA (RT-PCR) NEGATIVE (Negative) 05/21/24 Range/Units 15:52 WBC (4.8-10.8) X10*3/uL RBC (4.20-5.50) X10*6/uL Hgb (12.0-16.0) g/dl Hct (37.0-47.0) % MCV (80.0-98.0) fL MCH (27.0-33.0) pg MCHC (31.0-35.0) g/dl RDW (11.0-16.0) % Plt Count (160-400) X10*3/uL MPV (9.4-12.3) fL Immature Gran % (Auto) (0.0-0.4) % Neut % (Auto) (45-73) % Lymph % (Auto) (20-40) % [place] % (Auto) (2-11) % Eos % (Auto) (0-4) % Baso % (Auto) (0-2) % Lymph # (Auto) (1.2-4.9) X10*3/uL [place] # (Auto) (0.1-1.2) X10*3/uL Eos # (Auto) (0.0-0.4) X10*3/uL Baso # (Auto) (0.0-0.2) X10*3/uL Abs Immat Gran (auto) (0.00-0.03) X10*3/uL Absolute Neuts (auto) (2.0-8.3) x10*3/uL Absolute Nucleated RBC (0.0-0.012) X10*3/uL Nucleated RBC % (auto) (0.0-0.2) /100WBC PT (10.9-12.4) SEC INR (0.9-1.1) VBG pH 7.48 H (7.32-7.43) VBG pCO2 39 mmHg VBG pO2 111 mmHg VBG HCO3 29 H (22-26) mmol/L VBG O2 Saturation 99.0 % VBG Base Excess 5.8 mmol/L Sodium (135-145) mmol/L Potassium (3.3-5.1) mmol/L Chloride (96-108) mmol/L Carbon Dioxide (22-29) mmol/L Anion Gap (12-20) BUN (9-16) mg/dL Creatinine (0.5-1.4) mg/dL Estim Creat Clear Calc Estimated GFR Random Glucose (60-115) mg/dL Lactic Acid (0.5-2.0) mmol/L Calcium (8.4-10.2) mg/dL Magnesium (1.6-2.6) mg/dL Total Bilirubin (0.0-1.0) mg/dL Direct Bilirubin (0.0-0.5) mg/dL AST (5-31) U/L ALT (0-31) U/L Alkaline Phosphatase (39-117) U/L Troponin I High Sens (<3.5-17.0) ng/L B-Natriuretic Peptide (<100) pg/mL Total Protein (6.5-8.0) g/dL Albumin (3.5-5.0) g/dL Influenza Type A (PCR) (Negative) Influenza Type B (PCR) (Negative) RSV RNA Qual (PCR) (Negative) SARS-CoV-2 RNA (RT-PCR) (Negative) Independent Interpretation I performed an independent interpretation of an: EKG and Plain X-Ray (pulm edema) Interpretation: Rate: 87 Rhythm: NSR [place]: normal Normal P waves. Normal FRIEDA. Normal QRS complex. ST T wave : no MELLISA, inverted t waves V1-V2 qTC: 416 prior studies: no acute ischemia The study has been interpreted contemporaneously by me. . Radiology Impression Discussion of test interpretation with radiology: I have reviewed the radiologist's reading. Independent Historian Clinical information obtained from an independent historian. History obtained from or confirmed by: EMS External Record Review External record reviewed: Inpatient record and Outpatient record Critical Care Time Critical Care Time Critical Care Time: Yes Total Critical Care Time: 60 Attestation: review of records, emergent NIPPV, nitro paste and gtt, hyperkalemia correction, ICU consult, admission I attest to this time spent taking care of the patient Discharge Plan Discharge Clinical Impression: Acute hyperkalemia, Hypertension, uncontrolled, Pulmonary edema Patient Disposition: Admitted As Inpatient Prescriptions: No Action pantoprazole 40 mg Tablet,Delayed Release (Dr/Ec) 40 mg PO DAILY@0630 melatonin 5 mg Tablet 5 mg PO BEDTIME PRN (Reason: Sleep) aspirin 81 mg tablet,delayed release (DR/EC) 1 tab PO DAILY albuterol sulfate [Ventolin HFA] 90 mcg/actuation HFA aerosol inhaler 2 puff INHALATION Q4H PRN (Reason: wheezing) ondansetron 4 mg tablet,disintegrating 4 mg PO BID PRN (Reason: nausea and vomiting) albuterol sulfate 2.5 mg /3 mL (0.083 %) solution for nebulization 1 amp inhalation TID PRN (Reason: Shortness Of Breath) isosorbide dinitrate 30 mg Tablet 30 mg PO TID Rx Instructions: allow nitrate-free interval of 12-14 hrs per 24-hr period [facility] Rx 1-60-300 mg-mg-mcg tablet 1 tab PO DAILY buprenorphine-naloxone 12-3 mg film 1 film sublingual DAILY Lokelma 10 gram powder in packet 10 g PO MOWEFR@0900 amlodipine 10 mg tablet 10 mg PO DAILY glucose 4 gram tablet,chewable 16 g PO Q15M PRN (Reason: hypoglycemia) calcium acetate(phosphat bind) 667 mg capsule 667 mg PO DAILY PRN (Reason: snack) hydrocortisone 2.5 % cream with perineal applicator 1 appl [place] BID PRN (Reason: pain) hydralazine 50 mg Tablet 50 mg PO TID Qty: 270 0RF Protocol: Hold for SBP< HOLD for SBP < : 90 clonidine HCl 0.1 mg tablet 0.1 mg PO TID mirtazapine 15 mg tablet 15 mg PO BEDTIME calcium acetate(phosphat bind) 667 mg capsule 1,334 mg PO TIDWM lactulose 10 gram/15 mL solution 20 g PO DAILY PRN (Reason: constipation) nicotine 14 mg/24 hr patch 24 hour 1 patch topical DAILY acetaminophen 500 mg tablet 500 mg PO TID PRN (Reason: Pain) diclofenac sodium 1 % gel 2 g topical BID PRN (Reason: Pain) fluticasone propionate 110 mcg/actuation HFA aerosol inhaler 1 puff INHALATION BID carvedilol 25 mg tablet 25 mg PO BID losartan 50 mg tablet 50 mg PO DAILY trazodone 50 mg tablet 50 mg PO BEDTIME Print Language: [place]
[2024-05-21 15:57] LABS: Venous Blood Gas Refer to POC result
[2024-05-21 15:57] LABS: VBG Base Excess 5.8 mmol/L; VBG HCO3 29 mmol/L (22-26); VBG pCO2 39 mmHg; VBG pH 7.48 (7.32-7.43); VBG pO2 111 mmHg
[2024-05-21 16:04] LABS: B Type Natriuretic Peptide 3639 pg/mL (<100)
[2024-05-21 16:05] LABS: Influenza A PCR NEGATIVE (Negative); Influenza B PCR NEGATIVE (Negative); Resp Syncy Virus RNA Qual PCR NEGATIVE (Negative); SARS COV2 PCR INHOUSE NEGATIVE (Negative)
[2024-05-21 16:05] LABS: Troponin-I High Sensitivity 25.9 ng/L (<3.5-17.0)
[2024-05-21 16:12] LABS: Lactic Acid 1.2 mmol/L (0.5-2.0)
[2024-05-21 16:17] LABS: Alanine Aminotransferase 15 U/L (0-31); Albumin Level 4.3 g/dL (3.5-5.0); Alkaline Phosphatase 151 U/L (39-117); Anion Gap 22 (12-20); Aspartate Amino Transferase 31 U/L (5-31); Bilirubin Direct 0.1 mg/dL (0.0-0.5); Bilirubin Total 0.4 mg/dL (0.0-1.0); Blood Urea Nitrogen 40 mg/dL (9-16); Calcium 11.6 mg/dL (8.4-10.2); Carbon Dioxide 27 mmol/L (22-29); Chloride 89 mmol/L (96-108); Estimated Glomerular Filt Rate 5; Glucose Random 203 mg/dL (60-115); Magnesium 2.9 mg/dL (1.6-2.6); Potassium 6.5 mmol/L (3.3-5.1); Sodium 131 mmol/L (135-145); Total Protein 8.3 g/dL (6.5-8.0)
[2024-05-21] MEDS: Calcium Gluconate/NaCl,Iso-Osm 2 GM/100 ML PLAST..BAG IV (16:35)
[2024-05-21] MEDS: hydrALAZINE HCl 20 MG/ML VIAL 10 MG IVPUSH (16:46)
[2024-05-21] MEDS: Sodium Zirconium Cyclosilicate 5 GM POWD.PACK PO (16:46)
[2024-05-21] MEDS: Nitroglycerin/D5W 100 MG/250 ML INFUS..BTL IVCONT (16:55)
--- NOTE | 2024-05-21 17:22 | PC.NURSE ---
report given to CELIO Suarez pt to be transferred to ICU
--- NOTE | 2024-05-21 17:31 | P.HPCC_ITS ---
History of Present Illness Date of Service: 05/21/24 Chief Complaint: shortness of breath 69 years old lady with PMH of HTN, DM, ESRD on HD through permcath, COPD presented to the ED with shortness of breath, and hypertensive urgency after missing dialysis session on Sunday. [facility] Past Medical History Medical History Diabetes mellitus Hemorrhoids that prolapse with straining, but retract spontaneously Hemorrhoids with complication ESRD on dialysis Delirium Sepsis Tachycardia Leukocytosis Fever End stage chronic kidney disease Congestive heart failure with left ventricular dysfunction ESRD (end stage renal disease) Hypertension Pulmonary congestion COVID-19 virus infection Asthma with COPD with exacerbation COVID ESRD (end stage renal disease) Hypertrophic cardiomyopathy Acute exacerbation of chronic obstructive pulmonary disease (COPD) Heart failure with preserved ejection fraction Constipation End stage renal disease on dialysis Ascites Anasarca Ischemic colitis Acute GI bleeding Anemia Dialysis patient, noncompliant Anemia in chronic kidney disease Opioid withdrawal Essential hypertension Family History Family History Other Hypertension Surgical History Surgical History No pertinent past surgical history Social History Social History Household Members: Caregiver Housing: Assisted Living Facility Do you presently have visiting nurse or other home services: Yes Unable to assess alcohol history related to: Unknown Alcohol intake: former Comment: pt in dialysis at this time. Patient Tobacco Use Status: Never used Tobacco Tobacco use type: Cigarette Cigarette Packs Per Day: 2 Cigarettes Per Day: 40.0 Years Smoked: 50 +/- Smoked in Last 30 Days: No e-Cigarette/Vaping Use: Never Used Second Hand Smoke Exposure: No Substance Use Type: Marijuana Advance Directives: Yes Advance Directives on File: Yes Advance Directives Date on File: 04/19/23 service: No Current occupational status: disabled Meds Allergies Allergy/AdvReac Type Severity Reaction Status Date / Time No Known Allergies Allergy Verified 05/21/24 16:44 Active Medications: Current Medications Heparin Sodium (Porcine) (Heparin Sodium,Porcine 5,000 Unit/Ml Vial) 5,000 unit SUBCUT Q8H PHAN Nitroglycerin/Dextrose (Nitroglycerin/D5w) 100 mg in 250 mls @ 0 mls/hr IVCONT .Q0M [facility]; Protocol Last Titration: 05/21/24 17:11 Dose: 40 mcg/min, 6 mls/hr Calcium Gluconate (Calcium Gluconate) 2 gm in 100 mls @ 50 mls/hr IV ONCE ONE Stop: 05/21/24 18:15 Last Admin: 05/21/24 16:35 Dose: 50 mls/hr Insulin Human Lispro (Insulin Lispro 100 Unit/Ml 3 Ml Vial) 5 unit SUBCUT ONCE ONE Stop: 05/21/24 17:30 Pantoprazole Sodium (Pantoprazole Sodium 40 Mg/10 Ml Vial) 40 mg IVPUSH DAILY@0630 [facility] Home Medications ?Medication ?Instructions ?Recorded ?Confirmed ?Last Taken ?Type melatonin 5 mg tablet 5 mg PO BEDTIME PRN Sleep 04/15/21 04/19/24 Unknown History pantoprazole 40 mg tablet,delayed 40 mg PO DAILY@0630 04/15/21 04/19/24 10/15/23 History release aspirin 81 mg tablet,delayed 1 tab PO DAILY 10/11/21 04/19/24 10/15/23 History release albuterol sulfate 90 mcg/actuation 2 puff inhalation Q4H PRN wheezing 01/31/22 04/19/24 Unknown History aerosol inhaler (Ventolin HFA) ondansetron 4 mg disintegrating 4 mg PO BID PRN nausea and vomiting 03/09/22 04/19/24 Unknown History tablet albuterol sulfate 2.5 mg/3 mL 1 amp inhalation TID PRN Shortness 05/08/22 04/19/24 Unknown History (0.083 %) solution for nebulization Of Breath isosorbide dinitrate 30 mg tablet 30 mg PO TID 07/10/22 04/19/24 10/15/23 History calcium acetate(phosphat bind) 667 1,334 mg PO TIDWM 03/13/23 04/19/24 10/15/23 History mg capsule clonidine HCl 0.1 mg tablet 0.1 mg PO TID 03/13/23 04/19/24 10/15/23 History lactulose 10 gram/15 mL oral 20 g PO DAILY PRN constipation 03/13/23 04/19/24 10/15/23 History solution mirtazapine 15 mg tablet 15 mg PO BEDTIME 03/13/23 04/19/24 10/15/23 History acetaminophen 500 mg tablet 500 mg PO TID PRN Pain 10/16/23 04/19/24 Unknown History diclofenac sodium 1 % topical gel 2 g topical BID PRN Pain 10/16/23 04/19/24 Unknown History fluticasone propionate 110 1 puff inhalation BID 10/16/23 04/19/24 10/15/23 History mcg/actuation HFA aerosol inhaler nicotine 14 mg/24 hr daily 1 patch topical DAILY 10/16/23 04/19/24 10/15/23 History transdermal patch carvedilol 25 mg tablet 25 mg PO BID 01/28/24 04/19/24 Unknown History losartan 50 mg tablet 50 mg PO DAILY 01/28/24 04/19/24 Unknown History trazodone 50 mg tablet 50 mg PO BEDTIME 01/28/24 04/19/24 Unknown History amlodipine 10 mg tablet 10 mg PO DAILY 04/19/24 04/19/24 Unknown History buprenorphine 12 mg-naloxone 3 mg 1 film sublingual DAILY 04/19/24 04/19/24 Unknown History sublingual film calcium acetate(phosphat bind) 667 667 mg PO DAILY PRN snack 04/19/24 04/19/24 Unknown History mg capsule glucose 4 gram chewable tablet 16 g PO Q15M PRN hypoglycemia 04/19/24 04/19/24 Unknown History hydrocortisone 2.5 % topical cream 1 appl [place] BID PRN pain 04/19/24 04/19/24 Unknown History with perineal applicator sodium zirconium cyclosilicate 10 10 g PO MOWEFR@0900 04/19/24 04/19/24 Unknown History gram oral powder packet (Lokelma) vitamin B comp no.3-folic acid 1 1 tab PO DAILY 04/19/24 04/19/24 Unknown History mg-vit C 60 mg-biotin 300 mcg tablet ([facility] Rx) Physical Exam 2 Vital Signs: Vital Signs: Last Vital Signs Temp 96.4 F L 05/21/24 16:10 Pulse 84 05/21/24 17:25 Resp 18 05/21/24 17:25 BP 203/85 H 05/21/24 17:25 Pulse Ox 92 05/21/24 17:25 O2 Del Method BiPAP 05/21/24 17:25 FiO2 24 05/21/24 17:25 BMI result Body Mass Index 25.0 Results Labs 05/21/24 15:33 05/21/24 15:33 Labs: Laboratory Results - last 24 hr 05/21/24 05/21/24 05/21/24 15:10 15:33 15:45 MCV 102.3 H MCH 33.3 H MCHC 32.6 RDW 15.5 Plt Count 267 MPV 10.3 Immature Gran % (Auto) 0.5 H Neut % (Auto) 74.5 H Lymph % (Auto) 16.5 L [place] % (Auto) 5.3 Eos % (Auto) 2.9 Baso % (Auto) 0.3 Lymph # (Auto) 1.5 [place] # (Auto) 0.5 Eos # (Auto) 0.3 Baso # (Auto) 0.0 Abs Immat Gran (auto) 0.05 H Absolute Neuts (auto) 6.9 Absolute Nucleated RBC 0.000 Nucleated RBC % (auto) 0.0 PT 10.1 L INR 0.9 VBG pH VBG pCO2 VBG pO2 VBG HCO3 VBG O2 Saturation VBG Base Excess Anion Gap 22 H Estim Creat Clear Calc TNP Estimated GFR 5 Random Glucose 203 H Lactic Acid 1.2 Calcium 11.6 H D Magnesium 2.9 H Total Bilirubin 0.4 Direct Bilirubin 0.1 AST 31 ALT 15 Alkaline Phosphatase 151 H Troponin I High Sens 25.9 H B-Natriuretic Peptide 3639 H Total Protein 8.3 H Albumin 4.3 Influenza Type A (PCR) NEGATIVE Influenza Type B (PCR) NEGATIVE RSV RNA Qual (PCR) NEGATIVE SARS-CoV-2 RNA (RT-PCR) NEGATIVE 05/21/24 15:52 MCV MCH MCHC RDW Plt Count MPV Immature Gran % (Auto) Neut % (Auto) Lymph % (Auto) [place] % (Auto) Eos % (Auto) Baso % (Auto) Lymph # (Auto) [place] # (Auto) Eos # (Auto) Baso # (Auto) Abs Immat Gran (auto) Absolute Neuts (auto) Absolute Nucleated RBC Nucleated RBC % (auto) PT INR VBG pH 7.48 H VBG pCO2 39 VBG pO2 111 VBG HCO3 29 H VBG O2 Saturation 99.0 VBG Base Excess 5.8 Anion Gap Estim Creat Clear Calc Estimated GFR Random Glucose Lactic Acid Calcium Magnesium Total Bilirubin Direct Bilirubin AST ALT Alkaline Phosphatase Troponin I High Sens B-Natriuretic Peptide Total Protein Albumin Influenza Type A (PCR) Influenza Type B (PCR) RSV RNA Qual (PCR) SARS-CoV-2 RNA (RT-PCR)
[2024-05-21] MEDS: Heparin Sodium,Porcine 5,000 UNIT/ML VIAL 5000 UNIT SUBCUT (18:03)
[2024-05-21] MEDS: Pantoprazole Sodium 40 MG/10 ML VIAL IVPUSH (18:03)
[2024-05-21] MEDS: Insulin Lispro 100 UNIT/ML 3 ML VIAL SUBCUT (18:05)
--- NOTE | 2024-05-21 18:13 | PHA.MEDREC ---
Pharmacy Consult ? Medication Reconciliation Pharmacy has completed the medication reconciliation, unable to speak to patient as she is on BiPAP. Utilized discharge summary and claims hx to confirm meds. Few left unconfirmed that patient hasn't filled in a some time, will leave note for AM team to follow up on.
[2024-05-21] MEDS: Dextrose 10 % 250 ML 750 ML IV (18:15)
[2024-05-21 18:34] LABS: Phosphorus 2.2 mg/dL (2.7-4.5)
--- NOTE | 2024-05-21 19:21 | PM.CCHP ---
History of Present Illness Date of Service: 05/21/24 <BRANDON Chin - Last Filed: 05/22/24 00:30> Attending physician on admission: Gonzalo Will <BRANDON Chin - Last Filed: 05/22/24 00:30> Chief Complaint: Hypertensive emergency/ acute pulmonary edema <BRANDON Chin - Last Filed: 05/22/24 00:30> HPI: ?61-year-old female with underlying history of end-stage renal disease noncompliant with dialysis which she has Sunday and Fridays, diabetes, hypertension, COPD, COVID, asthma, pulmonary hypertension, hypertrophic cardiomyopathy, constipation, opioid dependence on buprenorphine, recurrent hyperkalemia in the setting of renal disease, tobacco abuse, GERD, chronic back pain, obesity among others. ?Patient presented to the emergency room complaining of shortness of breath for the past 3 days along with mild leg swelling.? Patient was brought via EMS who reported a blood pressure greater than 200, patient was diaphoretic and anxious upon arrival. ?Initial blood pressure 208/159 in mother distress, labored breathing with 1+ pitting edema of lower extremities.? Patient was given Lasix steroids, transdermal nitroglycerin albuterol, her potassium was 6.5 and she was treated with insulin D50.? Placed on BiPAP and subsequently started on nitroglycerin drip, nephrology was consulted for emergent dialysis and the patient was transferred to the ICU. <BRANDON Chin - Last Filed: 05/22/24 00:30> Review of Systems Review of Systems: Yes Unobtainable due to mental status (distress on Bipap) <BRANDON Chin - Last Filed: 05/22/24 00:30> [facility] Past Medical History Medical History: Medical History Diabetes mellitus Hemorrhoids that prolapse with straining, but retract spontaneously Hemorrhoids with complication ESRD on dialysis Delirium Sepsis Tachycardia Leukocytosis Fever End stage chronic kidney disease Congestive heart failure with left ventricular dysfunction ESRD (end stage renal disease) Hypertension Pulmonary congestion COVID-19 virus infection Asthma with COPD with exacerbation COVID ESRD (end stage renal disease) Hypertrophic cardiomyopathy Acute exacerbation of chronic obstructive pulmonary disease (COPD) Heart failure with preserved ejection fraction Constipation End stage renal disease on dialysis Ascites Anasarca Ischemic colitis Acute GI bleeding Anemia Dialysis patient, noncompliant Anemia in chronic kidney disease Opioid withdrawal Essential hypertension <BRANDON Chin - Last Filed: 05/22/24 00:30> Family History Family History: Family History Other Hypertension <BRANDON Chin - Last Filed: 05/22/24 00:30> Surgical History Surgical History: Surgical History No pertinent past surgical history <BRANDON Chin - Last Filed: 05/22/24 00:30> Social History Social History: Social History Household Members: Other Housing: Apartment Do you presently have visiting nurse or other home services: Yes Unable to assess alcohol history related to: Unknown Alcohol intake: former Comment: pt in dialysis at this time. Patient Tobacco Use Status: Never used Tobacco Tobacco use type: Cigarette Cigarette Packs Per Day: 2 Cigarettes Per Day: 40.0 Years Smoked: 50 +/- Smoked in Last 30 Days: No e-Cigarette/Vaping Use: Never Used Second Hand Smoke Exposure: No Use of substances other than those prescribed or required for medical reasons: No Substance Use Type: Marijuana Currently Displaying Signs/Symptoms of Drug Intoxication Withdrawal: No Have you been hit, kicked, punched, or otherwise hurt by someone within the past year? If so, by whom?: No Do you feel safe in your current relationship?: No Current Relationship Is there a partner from a previous relationship who is making you feel unsafe now?: No Are you made to feel afraid or neglected: No Advance Directives: Yes Advance Directives on File: Yes Advance Directives Date on File: 04/19/23 Do you have a plan to hurt others: No Plan Patient : No service: No Current occupational status: disabled <BRANDON Chin - Last Filed: 05/22/24 00:30> Meds Allergies/Adverse reactions: Allergies Allergy/AdvReac Type Severity Reaction Status Date / Time No Known Allergies Allergy Verified 05/21/24 16:44 <BRANDON Chin - Last Filed: 05/22/24 00:30> Active Medications: Current Medications Heparin Sodium (Porcine) (Heparin Sodium,Porcine 5,000 Unit/Ml Vial) 5,000 unit SUBCUT Q8H [facility] Last Admin: 05/21/24 18:03 Dose: 5,000 unit Nitroglycerin/Dextrose (Nitroglycerin/D5w) 100 mg in 250 mls @ 0 mls/hr IVCONT .Q0M [facility]; Protocol Last Titration: 05/21/24 19:09 Dose: 140 mcg/min, 21 mls/hr Pantoprazole Sodium (Pantoprazole Sodium 40 Mg/10 Ml Vial) 40 mg IVPUSH DAILY@0630 [facility] Last Admin: 05/21/24 18:03 Dose: 40 mg <BRANDON Chin - Last Filed: 05/22/24 00:30> Home medications: Home Medications ?Medication ?Instructions ?Recorded ?Confirmed ?Last Taken ?Type melatonin 5 mg tablet 5 mg PO BEDTIME PRN Sleep 04/15/21 05/21/24 Unknown History pantoprazole 40 mg tablet,delayed 40 mg PO DAILY@0630 04/15/21 05/21/24 10/15/23 History release aspirin 81 mg tablet,delayed 1 tab PO DAILY 10/11/21 05/21/24 10/15/23 History release albuterol sulfate 90 mcg/actuation 2 puff inhalation Q4H PRN wheezing 01/31/22 05/21/24 Unknown History aerosol inhaler (Ventolin HFA) ondansetron 4 mg disintegrating 4 mg PO BID PRN nausea and vomiting 03/09/22 05/21/24 Unknown History tablet albuterol sulfate 2.5 mg/3 mL 1 amp inhalation TID PRN Shortness 05/08/22 05/21/24 Unknown History (0.083 %) solution for nebulization Of Breath isosorbide dinitrate 30 mg tablet 30 mg PO TID 07/10/22 05/21/24 10/15/23 History calcium acetate(phosphat bind) 667 1,334 mg PO TIDWM 03/13/23 05/21/24 10/15/23 History mg capsule clonidine HCl 0.1 mg tablet 0.1 mg PO TID 03/13/23 05/21/24 10/15/23 History lactulose 10 gram/15 mL oral 20 g PO DAILY PRN constipation 03/13/23 05/21/24 10/15/23 History solution mirtazapine 15 mg tablet 15 mg PO BEDTIME 03/13/23 05/21/24 10/15/23 History acetaminophen 500 mg tablet 500 mg PO TID PRN Pain 10/16/23 05/21/24 Unknown History diclofenac sodium 1 % topical gel 2 g topical BID PRN Pain 10/16/23 04/19/24 Unknown History fluticasone propionate 110 1 puff inhalation BID 10/16/23 04/19/24 10/15/23 History mcg/actuation HFA aerosol inhaler nicotine 14 mg/24 hr daily 1 patch topical DAILY 10/16/23 05/21/24 10/15/23 History transdermal patch carvedilol 25 mg tablet 25 mg PO BID 01/28/24 05/21/24 Unknown History losartan 50 mg tablet 50 mg PO DAILY 01/28/24 04/19/24 Unknown History trazodone 50 mg tablet 50 mg PO BEDTIME PRN Insomnia 01/28/24 05/21/24 Unknown History amlodipine 10 mg tablet 10 mg PO DAILY 04/19/24 05/21/24 Unknown History buprenorphine 12 mg-naloxone 3 mg 1 film sublingual DAILY 04/19/24 05/21/24 Unknown History sublingual film calcium acetate(phosphat bind) 667 667 mg PO DAILY PRN snack 04/19/24 05/21/24 Unknown History mg capsule glucose 4 gram chewable tablet 16 g PO Q15M PRN hypoglycemia 04/19/24 05/21/24 Unknown History hydrocortisone 2.5 % topical cream 1 appl [place] BID PRN pain 04/19/24 04/19/24 Unknown History with perineal applicator sodium zirconium cyclosilicate 10 10 g PO MOWEFR@0900 04/19/24 05/21/24 Unknown History gram oral powder packet (Lokelma) vitamin B comp no.3-folic acid 1 1 tab PO DAILY 04/19/24 05/21/24 Unknown History mg-vit C 60 mg-biotin 300 mcg tablet ([facility]) <BRANDON Chin - Last Filed: 05/22/24 00:30> Physical Exam Vital Signs: Vital Signs: Last Vital Signs Temp 97.0 F 05/21/24 18:00 Pulse 72 05/21/24 19:09 Resp 25 H 05/21/24 18:00 BP 222/123 H 05/21/24 19:09 Pulse Ox 94 05/21/24 18:00 O2 Del Method BiPAP 05/21/24 18:00 FiO2 24 05/21/24 18:00 BMI result Body Mass Index 25.0 <BRANDON Chin - Last Filed: 05/22/24 00:30> General:? Alert oriented , following commands, appears to be in moderate distress on BiPAP. Skin:? Intact, no lesions, edema, erythema, clubbing or cyanosis.? No ulcers. HEENT:? Head is normocephalic, atraumatic, pupils equal round and reactive to light bilaterally. Buccal mucosa is moist, Neck is supple without lymphadenopathy. Cardiac:? Right chest PermCath, Clear S1-S2, no murmurs rubs or gallops. Pulmonary:? Diminished lung sounds bilaterally with significant crackles at both bases bilaterally.? No rhonchi.? No wheezes. Abdomen:? Protuberant, positive bowel sounds in all 4 quadrants.? Soft, nontender, no rebound or guarding.? Musculoskeletal:? Moving all 4 extremities upon request a major joints, there is no crepitus or tenderness.? The strength is 5/5 bilaterally and throughout all 4 extremities.? There is 1+ pitting edema all the way up to tibial plateau bilaterally, no asymmetry, no calf tenderness. Neurologic:? As above, no focal deficits noted. Vascular:? 2+ pulses upper and lower extremities distally. ?Less than 2nd capillary refill of fingers and toes bilaterally. <BRANDON Chin - Last Filed: 05/22/24 00:30> Results Labs CBC and Chem 7: 05/22/24 04:51 05/22/24 04:51 <BRANDON Chin - Last Filed: 05/22/24 00:30> Labs: Laboratory Results - last 24 hr 05/21/24 05/21/24 05/21/24 15:10 15:33 15:45 MCV 102.3 H MCH 33.3 H MCHC 32.6 RDW 15.5 Plt Count 267 MPV 10.3 Immature Gran % (Auto) 0.5 H Neut % (Auto) 74.5 H Lymph % (Auto) 16.5 L Desha % (Auto) 5.3 Eos % (Auto) 2.9 Baso % (Auto) 0.3 Lymph # (Auto) 1.5 Desha # (Auto) 0.5 Eos # (Auto) 0.3 Baso # (Auto) 0.0 Abs Immat Gran (auto) 0.05 H Absolute Neuts (auto) 6.9 Absolute Nucleated RBC 0.000 Nucleated RBC % (auto) 0.0 Hold Purple Top PT 10.1 L INR 0.9 Hold Blue Top VBG pH VBG pCO2 VBG pO2 VBG HCO3 VBG O2 Saturation VBG Base Excess Anion Gap 22 H Estim Creat Clear Calc TNP Estimated GFR 5 Random Glucose 203 H Lactic Acid 1.2 Calcium 11.6 H D Phosphorus Magnesium 2.9 H Total Bilirubin 0.4 Direct Bilirubin 0.1 AST 31 ALT 15 Alkaline Phosphatase 151 H Troponin I High Sens 25.9 H B-Natriuretic Peptide 3639 H Total Protein 8.3 H Albumin 4.3 Influenza Type A (PCR) NEGATIVE Influenza Type B (PCR) NEGATIVE RSV RNA Qual (PCR) NEGATIVE SARS-CoV-2 RNA (RT-PCR) NEGATIVE 05/21/24 05/21/24 15:52 18:08 MCV MCH MCHC RDW Plt Count MPV Immature Gran % (Auto) Neut % (Auto) Lymph % (Auto) Desha % (Auto) Eos % (Auto) Baso % (Auto) Lymph # (Auto) Desha # (Auto) Eos # (Auto) Baso # (Auto) Abs Immat Gran (auto) Absolute Neuts (auto) Absolute Nucleated RBC Nucleated RBC % (auto) Hold Purple Top SEE NOTE PT INR Hold Blue Top SEE NOTE VBG pH 7.48 H VBG pCO2 39 VBG pO2 111 VBG HCO3 29 H VBG O2 Saturation 99.0 VBG Base Excess 5.8 Anion Gap Estim Creat Clear Calc Estimated GFR Random Glucose Lactic Acid Calcium Phosphorus 2.2 L Magnesium Total Bilirubin Direct Bilirubin AST ALT Alkaline Phosphatase Troponin I High Sens B-Natriuretic Peptide Total Protein Albumin Influenza Type A (PCR) Influenza Type B (PCR) RSV RNA Qual (PCR) SARS-CoV-2 RNA (RT-PCR) <BRANDON Chin - Last Filed: 05/22/24 00:30> Assessment and Plan (1) Pulmonary edema: Qualifiers: Chronicity: acute Qualified Code(s): J81.0 - Acute pulmonary edema <BRANDON Chin - Last Filed: 05/22/24 00:30> Status: Acute <BRANDON Chin - Last Filed: 05/22/24 00:30> 1. Acute hypertensive emergency without encephalopathy 2. Acute hypoxic respiratory failure due to fluid overload 3. Acute pulmonary edema 4. Acute hyperkalemia 5. Reactive tachycardia and tachypnea 6. Secondary hyperphosphatemia 7. Hypervolemic hyponatremia 8. Bilateral interstitial opacities due to pulmonary edema, I doubt this is related to an infectious process. 9. Medical noncompliance <BRANDON Chin - Last Filed: 05/22/24 00:30> PLAN OF CARE: Patient was admitted to the ICU, eyes and nose, vital signs monitoring.? Started on nitroglycerin drip with a goal of decreasing her blood pressure by 25 % in next couple hours, start dialysis, continue with BiPAP support.? We will resume her home medications once she is able to take p.o. and in the meantime continue to administer nitroglycerin and p.r.n. hydralazine. ?Overall patient's work of breathing and respiratory distress will improve once she receives dialysis.? We will monitor her in the ICU to ensure that her blood pressure is well controlled prior to transferring.? Once dialysis is over, we will repeat a blood gas.? Repeat laboratories in the morning. We will need to verify her Suboxone dose in the morning. Overall the patient does not have any symptoms or signs of an acute infection, certainly this is not related to sepsis. Empiric use of IV fluids would have been detrimental to the patient's health as she is already fluid overloaded. GI PROPHYLAXIS:? On PPI at home. DVT PROPHYLAXIS:? Heparin subQ q.12 hours. Critical care time used for critical evaluation of this patient, diagnosis, treatment and coordination of care, review her records and documentation TOTAL CRITICAL CARE TIME 90?min . discussion and coordination with consultants, completely separate from any procedures performed. Patient's care was discussed in detail with Dr. Will who is aware of all the above as well as the plan of care for this patient. <BRANDON Chin - Last Filed: 05/22/24 00:30> PLAN OF CARE: Patient was admitted to the ICU, eyes and nose, vital signs monitoring.? Started on nitroglycerin drip with a goal of decreasing her blood pressure by 25 % in next couple hours, start dialysis, continue with BiPAP support.? We will resume her home medications once she is able to take p.o. and in the meantime continue to administer nitroglycerin and p.r.n. hydralazine. ?Overall patient's work of breathing and respiratory distress will improve once she receives dialysis.? We will monitor her in the ICU to ensure that her blood pressure is well controlled prior to transferring.? Once dialysis is over, we will repeat a blood gas.? Repeat laboratories in the morning. We will need to verify her Suboxone dose in the morning. Overall the patient does not have any symptoms or signs of an acute infection, certainly this is not related to sepsis. Empiric use of IV fluids would have been detrimental to the patient's health as she is already fluid overloaded. Acute hypoxemic respiratory failure: Possibly secondary to pulmonary edema from hypertensive urgency versus volume overload from renal failure We will place the patient on positive pressure ventilation to assist with hypoxia Chest x-ray suggestive of bilateral lung infiltrates suggestive of pulmonary edema We will give IV Lasix Acute hyperkalemia: Secondary to renal failure We will treat with insulin, dextrose, calcium gluconate, albuterol and Lokelma EKG to look for any rhythm changes We will initiate dialysis Hypertensive urgency: Presented with hypertensive urgency, pulmonary edema initially placed on nitrate drip with some affect but not complete so later on switched to diltiazem drip. Should improve after dialysis. We will restart home medications Acute encephalopathy: Secondary to metabolic encephalopathy from hypotensive urgency We will closely monitor mental status GI PROPHYLAXIS:? On PPI at home. DVT PROPHYLAXIS:? Heparin subQ q.12 hours. Critical care time used for critical evaluation of this patient, diagnosis, treatment and coordination of care, review her records and documentation TOTAL CRITICAL CARE TIME 90?min . Mainly spent on evaluation and admission to the critical care unit, formulating critical care plan and management, titrating patient has multiple antihypertensive drips, managing an IPPV, medically managing life-threatening hyperkalemia, review of labs, review of images and this time is discussion and coordination with consultants, completely separate from any procedures performed. Patient's care was discussed in detail with Dr. Adiga who is aware of all the above as well as the plan of care for this patient. <Gonzalo Will MD - Last Filed: 05/22/24 12:23>
[2024-05-21] MEDS: hydrALAZINE HCl 20 MG/ML VIAL IVPUSH (19:30)
[2024-05-21 20:17] LABS: Glucose, Whole Blood 255 mg/dL (60-115)
[2024-05-21] MEDS: cloNIDine HCL 0.1 MG TABLET PO (22:53)
[2024-05-21] MEDS: hydrALAZINE HCl 50 MG TABLET PO (22:54)
[2024-05-21] MEDS: carvediloL 25 MG TABLET PO (22:54)
[2024-05-21] MEDS: Isosorbide Dinitrate 10 MG TABLET 30 MG PO (22:55)
[2024-05-21] MEDS: 0.9 % Sodium Chloride Flush 3 ML SYRINGE IVFLUSH (23:15)
[2024-05-21] MEDS: Acetaminophen 325 MG TABLET 975 MG PO (23:24)
[2024-05-22] VITALS (34 sets, daily range): BP systolic 130–199; BP diastolic 47–108; PULSE 63–96; RESP 17–22; TEMP 36.2–36.8; O2SAT 93–100; BMI 25.7
[2024-05-22 00:18] LABS: ABG Base Excess 0.2 mmol/L; ABG HCO3 24 mmol/L (22-26); ABG pCO2 37 mmHg (32-45); ABG pH 7.41 (7.35-7.45); ABG pO2 85 mmHg (83-108)
[2024-05-22 00:35] LABS: ABG Refer to POC result
[2024-05-22] MEDS: amLODIPine Besylate 10 MG TABLET PO ×2 (02:17→08:55)
[2024-05-22] MEDS: Nitroglycerin/D5W 100 MG/250 ML INFUS..BTL 18 MG IVCONT (04:22)
[2024-05-22 04:55] LABS: VBG Base Excess 1.6 mmol/L; VBG HCO3 24 mmol/L (22-26); VBG pCO2 32 mmHg; VBG pH 7.48 (7.32-7.43); VBG pO2 41 mmHg
[2024-05-22 05:01] LABS: Venous Blood Gas Refer to POC result
[2024-05-22] MEDS: niCARdipine HCL 25 MG in 0.9 % Sodium Chloride 240 ML 50 MG IVCONT (05:11)
[2024-05-22 05:36] LABS: MANUAL DIFF FLAG NO
[2024-05-22 05:39] LABS: Basophils Percent Auto 0.1 % (0-2); Hematocrit 36.5 % (37.0-47.0); Hemoglobin 11.9 g/dl (12.0-16.0); Imm Gran Abs Auto 0.03 X10*3/uL (0.00-0.03); Imm Gran Pct Auto 0.4 % (0.0-0.4); Lymphocytes Absolute Auto 0.7 X10*3/uL (1.2-4.9); Lymphocytes Percent Auto 8.9 % (20-40); Mean Corpuscular HGB Conc 32.6 g/dl (31.0-35.0); Mean Corpuscular Hemoglobin 33.1 pg (27.0-33.0); Mean Corpuscular Volume 101.4 fL (80.0-98.0); Mean Platelet Volume 10.7 fL (9.4-12.3); Monocytes Absolute Auto 0.3 X10*3/uL (0.1-1.2); Monocytes Percent Auto 4.7 % (2-11); Neutrophils Absolute Auto 6.3 x10*3/uL (2.0-8.3); Neutrophils Percent Auto 85.9 % (45-73); Platelet Count 231 X10*3/uL (160-400); Red Cell Distribution Width 15.1 % (11.0-16.0); White Blood Count 7.3 X10*3/uL (4.8-10.8)
[2024-05-22] MEDS: Pantoprazole Sodium 40 MG/10 ML VIAL IVPUSH (05:50)
[2024-05-22 05:54] LABS: Magnesium 2.5 mg/dL (1.6-2.6); Phosphorus 2.7 mg/dL (2.7-4.5)
--- NOTE | 2024-05-22 06:10 | PC.NURSE ---
CARE ASSUMED 7PM...PATIENT AWAKE..ALERT..ORIENTED X3....BIPAP 18/8 FIO2 24%...RR 32-38 AT HS..SAO2 96-97%...LUNGS DIMINISHED THROUGHOUT...IV NTG DRIP TITRATED FROM 80 TO 160 MCG/MIN FOR SBP>200...MANAGER GOLF ARRIVED AND EMRGENT DIALYSIS INITIATED...DIALYSIS RUN FROM 8PM TO 23:15...PATIENT DEVELOPED LEG CRAMPS AND DIALYSIS ENDED...3.7 KG FLUID REMOVED...BP REMAINED ELEVATED DESPITE IV NTG DRIP...HOME ANTIHYPERTENSIVES REORDERED BY PROVIDER...ISORDIL/COREG/CLONIDINE AND HYDRALAZINE PO GIVEN...BP IMPROVED POST-DIALYSIS AND PO MEDS BUT THEN RE-ELEVATED...NORVASC 10MG PO GIVEN W/O EFFECT...SBP 180'S-190'S...PROVIDER AWARE..IV NTG DRIP D/C'D AND STARTED NICARDIPINE DRIP 5 MG/HR...SBP 120'S-140'S..RESTFUL...OFF BIPAP TO ROOM AIR POST DIALYSIS..RESPIRATIONS EASY..NSR NO ECTOPY
[2024-05-22 06:22] LABS: Alanine Aminotransferase 16 U/L (0-31); Albumin Level 3.8 g/dL (3.5-5.0); Alkaline Phosphatase 119 U/L (39-117); Anion Gap 21 (12-20); Aspartate Amino Transferase 61 U/L (5-31); Bilirubin Total 0.3 mg/dL (0.0-1.0); Blood Urea Nitrogen 20 mg/dL (9-16); Calcium 9.8 mg/dL (8.4-10.2); Carbon Dioxide 19 mmol/L (22-29); Chloride 96 mmol/L (96-108); Glucose Random 166 mg/dL (60-115); Potassium 5.9 mmol/L (3.3-5.1); Sodium 130 mmol/L (135-145); Total Protein 7.8 g/dL (6.5-8.0)
[2024-05-22 06:23] LABS: Creatinine Clr Calc Pharmacy 10.5; Estimated Glomerular Filt Rate 8
[2024-05-22] MEDS: Albuterol Sulfate 7.5 MG, Albuterol Sulfate (0.083%) 2.5 MG 10 MG INHALE (07:05)
[2024-05-22] MEDS: Sodium Zirconium Cyclosilicate 10 GM POWD.PACK 30 GM PO (07:33)
[2024-05-22] MEDS: Insulin Regular, Human 100 UNIT/ML 10 ML VIAL IVPUSH (07:36)
[2024-05-22] MEDS: Dextrose 10 % 250 ML 999 ML IVCONT (07:45)
[2024-05-22] MEDS: cloNIDine HCL 0.1 MG TABLET PO ×3 (08:55→19:53)
[2024-05-22] MEDS: Multivitamin TABLET 1 TAB PO (08:56)
[2024-05-22] MEDS: Calcium Acetate 667 MG CAPSULE 1334 MG PO ×3 (08:56→18:11)
[2024-05-22] MEDS: Isosorbide Dinitrate 10 MG TABLET 30 MG PO ×3 (08:56→19:53)
[2024-05-22] MEDS: hydrALAZINE HCl 50 MG TABLET PO ×3 (08:56→19:53)
[2024-05-22] MEDS: carvediloL 25 MG TABLET PO ×2 (08:56→19:53)
[2024-05-22] MEDS: Aspirin Enteric Coated 81 MG TABLET.DR PO (08:56)
[2024-05-22] MEDS: 0.9 % Sodium Chloride Flush 3 ML SYRINGE IVFLUSH ×3 (08:58→19:57)
[2024-05-22] MEDS: Buprenorphine/Naloxone 12/3 mg FILM 1 FILM SUBLINGUAL (10:19)
[2024-05-22] MEDS: ondansetron HCL 4 MG/2 ML VIAL IVPUSH (11:26)
[2024-05-22] MEDS: polyethylene glycoL 3350 17 GM POWD.PACK PO (11:26)
[2024-05-22 11:50] LABS: Glucose, Whole Blood 218 mg/dL (60-115)
[2024-05-22] MEDS: Insulin Lispro 100 UNIT/ML 3 ML VIAL SUBCUT ×2 (12:12→21:18)
--- NOTE | 2024-05-22 12:54 | P.PNCC_ITS ---
Subjective Subjective Date of Service: 05/22/24 Critical Care Time (minutes): 35 Comment: Feeling better this morning, complains of constipation and abdominal pain On nicardipine drip this morning there was tapered off Physical Exam 2 Vital Signs: Vital Signs: Last Vital Signs Temp 97.2 F 05/22/24 08:00 Pulse 80 05/22/24 12:00 Resp 20 05/22/24 12:00 BP 146/79 H 05/22/24 12:00 Pulse Ox 97 05/22/24 12:00 O2 Del Method Room Air 05/22/24 12:00 FiO2 24 05/22/24 07:00 BMI result Body Mass Index 25.7 General: a middle-aged lady sitting comfortably in the bed Nutritional Appearance: well nourished and overweight Eyes: appearance normal, both eyes and all related structures; Alignment and Position: alignment normal and position normal Neck: No lymphadenopathy, no thyromegaly Resp: bilateral air entry equal, occasional added sounds present in the lung bases Cardio: Regular rate, regular rhythm; Heart sounds: S1 normal heart sound present and S2 normal heart sound present GI: soft, nontender, no guarding, no hepatosplenomegaly : bladder normal to inspection, bladder normal to palpation, no renal angle tenderness Skin: no rashes or lesions noted and elasticity normal Neuro: oriented to person, oriented to place, oriented to time and moves all extremities Objective Data Labs 05/22/24 04:51 05/22/24 04:51 Labs: Laboratory Results - last 24 hr 05/21/24 05/21/24 05/21/24 15:10 15:33 15:45 WBC 9.3 RBC 3.93 L D Hgb 13.1 D Hct 40.2 D MCV 102.3 H MCH 33.3 H MCHC 32.6 RDW 15.5 Plt Count 267 MPV 10.3 Immature Gran % (Auto) 0.5 H Neut % (Auto) 74.5 H Lymph % (Auto) 16.5 L Fleming % (Auto) 5.3 Eos % (Auto) 2.9 Baso % (Auto) 0.3 Lymph # (Auto) 1.5 Fleming # (Auto) 0.5 Eos # (Auto) 0.3 Baso # (Auto) 0.0 Abs Immat Gran (auto) 0.05 H Absolute Neuts (auto) 6.9 Absolute Nucleated RBC 0.000 Nucleated RBC % (auto) 0.0 Hold Purple Top PT 10.1 L INR 0.9 Hold Blue Top O2 Saturation ABG pH at Pt Temp ABG pCO2 at Pt Temp ABG pO2 at Pt Temp ABG HCO3 ABG Base Excess (Actual) VBG pH VBG pCO2 VBG pO2 VBG HCO3 VBG O2 Saturation VBG Base Excess Sodium 131 L Potassium 6.5 H* Chloride 89 L Carbon Dioxide 27 Anion Gap 22 H BUN 40 H Creatinine 7.90 H* Estim Creat Clear Calc TNP Estimated GFR 5 POC Glucose Random Glucose 203 H Lactic Acid 1.2 Calcium 11.6 H D Phosphorus Magnesium 2.9 H Total Bilirubin 0.4 Direct Bilirubin 0.1 AST 31 ALT 15 Alkaline Phosphatase 151 H Troponin I High Sens 25.9 H B-Natriuretic Peptide 3639 H Total Protein 8.3 H Albumin 4.3 Hold Red Top Hold Yellow Top Influenza Type A (PCR) NEGATIVE Influenza Type B (PCR) NEGATIVE RSV RNA Qual (PCR) NEGATIVE SARS-CoV-2 RNA (RT-PCR) NEGATIVE 05/21/24 05/21/24 05/21/24 15:52 18:08 20:13 WBC RBC Hgb Hct MCV MCH MCHC RDW Plt Count MPV Immature Gran % (Auto) Neut % (Auto) Lymph % (Auto) Fleming % (Auto) Eos % (Auto) Baso % (Auto) Lymph # (Auto) Fleming # (Auto) Eos # (Auto) Baso # (Auto) Abs Immat Gran (auto) Absolute Neuts (auto) Absolute Nucleated RBC Nucleated RBC % (auto) Hold Purple Top SEE NOTE PT INR Hold Blue Top SEE NOTE O2 Saturation ABG pH at Pt Temp ABG pCO2 at Pt Temp ABG pO2 at Pt Temp ABG HCO3 ABG Base Excess (Actual) VBG pH 7.48 H VBG pCO2 39 VBG pO2 111 VBG HCO3 29 H VBG O2 Saturation 99.0 VBG Base Excess 5.8 Sodium Potassium Chloride Carbon Dioxide Anion Gap BUN Creatinine Estim Creat Clear Calc Estimated GFR POC Glucose 255 H Random Glucose Lactic Acid Calcium Phosphorus 2.2 L Magnesium Total Bilirubin Direct Bilirubin AST ALT Alkaline Phosphatase Troponin I High Sens B-Natriuretic Peptide Total Protein Albumin Hold Red Top See Note Hold Yellow Top See Note Influenza Type A (PCR) Influenza Type B (PCR) RSV RNA Qual (PCR) SARS-CoV-2 RNA (RT-PCR) 05/22/24 05/22/24 05/22/24 00:12 04:44 04:51 WBC 7.3 RBC 3.60 L Hgb 11.9 L Hct 36.5 L MCV 101.4 H MCH 33.1 H MCHC 32.6 RDW 15.1 Plt Count 231 MPV 10.7 Immature Gran % (Auto) 0.4 Neut % (Auto) 85.9 H Lymph % (Auto) 8.9 L Fleming % (Auto) 4.7 Eos % (Auto) 0.0 Baso % (Auto) 0.1 Lymph # (Auto) 0.7 L Fleming # (Auto) 0.3 Eos # (Auto) 0.0 Baso # (Auto) 0.0 Abs Immat Gran (auto) 0.03 Absolute Neuts (auto) 6.3 Absolute Nucleated RBC 0.000 Nucleated RBC % (auto) 0.0 Hold Purple Top PT INR Hold Blue Top O2 Saturation 99.0 ABG pH at Pt Temp 7.41 ABG pCO2 at Pt Temp 37 ABG pO2 at Pt Temp 85 ABG HCO3 24 ABG Base Excess (Actual) 0.2 VBG pH 7.48 H VBG pCO2 32 VBG pO2 41 VBG HCO3 24 VBG O2 Saturation 79.0 VBG Base Excess 1.6 Sodium 130 L Potassium 5.9 H Chloride 96 Carbon Dioxide 19 L Anion Gap 21 H BUN 20 H Creatinine 5.06 H* Estim Creat Clear Calc 10.5 Estimated GFR 8 POC Glucose Random Glucose 166 H Lactic Acid Calcium 9.8 D Phosphorus 2.7 Magnesium 2.5 Total Bilirubin 0.3 Direct Bilirubin AST 61 H ALT 16 Alkaline Phosphatase 119 H Troponin I High Sens B-Natriuretic Peptide Total Protein 7.8 Albumin 3.8 Hold Red Top Hold Yellow Top Influenza Type A (PCR) Influenza Type B (PCR) RSV RNA Qual (PCR) SARS-CoV-2 RNA (RT-PCR) 05/22/24 11:43 WBC RBC Hgb Hct MCV MCH MCHC RDW Plt Count MPV Immature Gran % (Auto) Neut % (Auto) Lymph % (Auto) Fleming % (Auto) Eos % (Auto) Baso % (Auto) Lymph # (Auto) Fleming # (Auto) Eos # (Auto) Baso # (Auto) Abs Immat Gran (auto) Absolute Neuts (auto) Absolute Nucleated RBC Nucleated RBC % (auto) Hold Purple Top PT INR Hold Blue Top O2 Saturation ABG pH at Pt Temp ABG pCO2 at Pt Temp ABG pO2 at Pt Temp ABG HCO3 ABG Base Excess (Actual) VBG pH VBG pCO2 VBG pO2 VBG HCO3 VBG O2 Saturation VBG Base Excess Sodium Potassium Chloride Carbon Dioxide Anion Gap BUN Creatinine Estim Creat Clear Calc Estimated GFR POC Glucose 218 H Random Glucose Lactic Acid Calcium Phosphorus Magnesium Total Bilirubin Direct Bilirubin AST ALT Alkaline Phosphatase Troponin I High Sens B-Natriuretic Peptide Total Protein Albumin Hold Red Top Hold Yellow Top Influenza Type A (PCR) Influenza Type B (PCR) RSV RNA Qual (PCR) SARS-CoV-2 RNA (RT-PCR) Progress Note: A&P Assessment and plan (1) Essential hypertension: Status: Acute (2) Hemorrhoids with complication: Status: Acute (3) Acute hyperkalemia: Status: Acute (4) Pulmonary edema: Status: Acute Plan Acute hypoxemic respiratory failure: Possibly secondary to pulmonary edema from hypertensive urgency versus volume overload from renal failure. Chest x-ray suggestive of bilateral lung infiltrates suggestive of pulmonary edema Improved after dialysis, off of NIPPV post dialysis Acute hyperkalemia: Secondary to renal failure Potassium 5.9 this morning Received medical management, continue Lokelmd Hypertensive urgency: Nicardipine drip turned off this morning after restarting home medications On multiple medications including hydralazine, clonidine, carvedilol, amlodipine, isosorbide dinitrate End-stage renal disease: Renal replacement therapy as per Nephrology, has a PermCath. Type 2 diabetes mellitus: On diabetic diet and sliding scale insulin Prophylaxis: Heparin, pantoprazole We will transfer her to floor Quality Stroke Does the patient have a stroke diagnosis?: No VTE Prior VTE?: No VTE Risk Level:: Medical - low VTE Device Contraindication: N/A - Device Ordered VTE Drug Contraindication: N/A - Med Ordered
--- NOTE | 2024-05-22 14:52 | MHC.CM.PN ---
Pt admitted to ICU w/high K+ in the setting of missing HD. Pt resides alone, has [employer] services 48 hrs/weekly, attends [facility] for HD on MWF and is active with [facility]. She also has Methadone dosing. She has a PT1, HCP on file and will need S transportation to home. Referred back to S.
[2024-05-22] MEDS: Albuterol Sulfate (0.083%) 2.5 MG/3 ML VIAL.NEB INHALE (15:23)
[2024-05-22] MEDS: bisacodyL 10 MG SUPP.RECT PR (16:37)
[2024-05-22 16:47] LABS: Glucose, Whole Blood 109 mg/dL (60-115)
--- NOTE | 2024-05-22 17:29 | P.CONNP_ITS ---
History of Present Illness Reason for Consult Consult date: 05/22/24 Reason for consult: ESRD Chief Complaint Chief complaint: Hyperkalemia History of Present Illness Narrative: ESRD PT with recurrent Hosp for symptomatic Hypervol and swevefre HTN and now readm for the same HD last nite and fluid pulled and breathing much improved C/O constipation and abd bloating On Nicardipine infusion Review of Systems Review of Systems ROS unable to be obtained due to resp distress Yes Unobtainable due to mental status (distress on Bipap) [facility] Past Medical History Medical History Diabetes mellitus Hemorrhoids that prolapse with straining, but retract spontaneously Hemorrhoids with complication ESRD on dialysis Delirium Sepsis Tachycardia Leukocytosis Fever End stage chronic kidney disease Congestive heart failure with left ventricular dysfunction ESRD (end stage renal disease) Hypertension Pulmonary congestion COVID-19 virus infection Asthma with COPD with exacerbation COVID ESRD (end stage renal disease) Hypertrophic cardiomyopathy Acute exacerbation of chronic obstructive pulmonary disease (COPD) Heart failure with preserved ejection fraction Constipation End stage renal disease on dialysis Ascites Anasarca Ischemic colitis Acute GI bleeding Anemia Dialysis patient, noncompliant Anemia in chronic kidney disease Opioid withdrawal Essential hypertension Family History Family History Other Hypertension Surgical History Surgical History No pertinent past surgical history Social History Social History Household Members: Other Housing: Apartment Do you presently have visiting nurse or other home services: Yes Unable to assess alcohol history related to: Unknown Alcohol intake: former Comment: pt in dialysis at this time. Patient Tobacco Use Status: Never used Tobacco Tobacco use type: Cigarette Cigarette Packs Per Day: 2 Cigarettes Per Day: 40.0 Years Smoked: 50 +/- Smoked in Last 30 Days: No e-Cigarette/Vaping Use: Never Used Second Hand Smoke Exposure: No Use of substances other than those prescribed or required for medical reasons: No Substance Use Type: Marijuana Currently Displaying Signs/Symptoms of Drug Intoxication Withdrawal: No Have you been hit, kicked, punched, or otherwise hurt by someone within the past year? If so, by whom?: No Do you feel safe in your current relationship?: No Current Relationship Is there a partner from a previous relationship who is making you feel unsafe now?: No Are you made to feel afraid or neglected: No Advance Directives: Yes Advance Directives on File: Yes Advance Directives Date on File: 04/19/23 Do you have a plan to hurt others: No Plan Patient : No service: No Current occupational status: disabled Meds Allergies Allergy/AdvReac Type Severity Reaction Status Date / Time No Known Allergies Allergy Verified 05/21/24 16:44 Active Medications: Current Medications Albuterol Sulfate (Albuterol Sulfate 90 Mcg 8 Gm Inhaler) 2 puff INHALE Q4H PRN PRN Reason: wheezing Albuterol Sulfate (Albuterol Sulfate (0.083%) 2.5 Mg/3 Ml Vial.Neb) 2.5 mg INHALE TID PRN PRN Reason: Shortness Of Breath Last Admin: 05/22/24 15:23 Dose: 2.5 mg Amlodipine Besylate (Amlodipine Besylate 10 Mg Tablet) 10 mg PO DAILY [facility]; Protocol Last Admin: 05/22/24 08:55 Dose: 10 mg Aspirin (Aspirin Enteric Coated 81 Mg Tablet.) 81 mg PO DAILY [facility] Last Admin: 05/22/24 08:56 Dose: 81 mg Buprenorphine/Naloxone (Buprenorphine/Naloxone 12/3 Mg Film) 1 film SUBLINGUAL DAILY [facility] Last Admin: 05/22/24 10:19 Dose: 1 film Calcium Acetate (Calcium Acetate 667 Mg Capsule) 667 mg PO DAILY PRN PRN Reason: snack Calcium Acetate (Calcium Acetate 667 Mg Capsule) 1,334 mg PO TIDWM [facility] Last Admin: 05/22/24 12:11 Dose: 1,334 mg Carvedilol (Carvedilol 25 Mg Tablet) 25 mg PO BID [facility]; Protocol Last Admin: 05/22/24 08:56 Dose: 25 mg Clonidine HCl (Clonidine Hcl 0.1 Mg Tablet) 0.1 mg PO TID [facility]; Protocol Last Admin: 05/22/24 15:14 Dose: 0.1 mg Glucose (Glucose Gel 15 Gm Gel..Gram.) 15 gm PO Q15M PRN; Protocol PRN Reason: per Hypoglycemia Standing Ord. Heparin Sodium (Porcine) (Heparin Sodium,Porcine 5,000 Unit/Ml Vial) 5,000 unit SUBCUT Q8H [facility] Last Admin: 05/22/24 08:58 Dose: Not Given Hydralazine HCl (Hydralazine Hcl 50 Mg Tablet) 50 mg PO TID [facility]; Protocol Last Admin: 05/22/24 15:14 Dose: 50 mg Hydralazine HCl (Hydralazine Hcl 20 Mg/Ml Vial) 10 mg IVPUSH Q4H PRN; Protocol PRN Reason: SBP >100 Nicardipine HCl 25 mg/ Sodium (Chloride) 250 mls @ 0 mls/hr IVCONT .Q0M [facility]; Protocol Last Titration: 05/22/24 09:54 Dose: 0 mg/hr, 0 mls/hr Dextrose (D10) 250 mls @ 750 mls/hr IV Q15M PRN; Protocol PRN Reason: per Hypoglycemia Standing Ord. Insulin Human Lispro (Insulin Lispro 100 Unit/Ml 3 Ml Vial) 0 unit SUBCUT QIDACHS [facility]; Protocol Stop: 05/23/24 09:17 Last Admin: 05/22/24 16:44 Dose: Not Given Isosorbide Dinitrate (Isosorbide Dinitrate 10 Mg Tablet) 30 mg PO TID [facility]; Protocol Last Admin: 05/22/24 15:14 Dose: 30 mg Multivitamins/Vitamin C (Multivitamin Tablet) 1 tab PO DAILY [facility] Last Admin: 05/22/24 08:56 Dose: 1 tab Ondansetron HCl (Ondansetron Hcl 4 Mg/2 Ml Vial) 4 mg IVPUSH Q6H PRN PRN Reason: Nausea and Vomiting Last Admin: 05/22/24 11:26 Dose: 4 mg Pantoprazole Sodium (Pantoprazole Sodium 40 Mg/10 Ml Vial) 40 mg IVPUSH DAILY@0630 [facility] Last Admin: 05/22/24 05:50 Dose: 40 mg Polyethylene Glycol (Polyethylene Glycol 3350 17 Gm Powd.Pack) 17 gm PO DAILY PRN PRN Reason: Constipation Last Admin: 05/22/24 11:26 Dose: 17 gm Sodium Chloride (0.9 % Sodium Chloride Flush 3 Ml Syringe) [facility] Last Admin: 05/22/24 15:15 Dose: 3 ml Home Medications ?Medication ?Instructions ?Recorded ?Confirmed ?Last Taken ?Type melatonin 5 mg tablet 5 mg PO BEDTIME PRN Sleep 04/15/21 05/21/24 Unknown History pantoprazole 40 mg tablet,delayed 40 mg PO DAILY@0630 04/15/21 05/21/24 10/15/23 History release aspirin 81 mg tablet,delayed 1 tab PO DAILY 10/11/21 05/21/24 10/15/23 History release albuterol sulfate 90 mcg/actuation 2 puff inhalation Q4H PRN wheezing 01/31/22 05/21/24 Unknown History aerosol inhaler (Ventolin HFA) ondansetron 4 mg disintegrating 4 mg PO BID PRN nausea and vomiting 03/09/22 05/21/24 Unknown History tablet albuterol sulfate 2.5 mg/3 mL 1 amp inhalation TID PRN Shortness 05/08/22 05/21/24 Unknown History (0.083 %) solution for nebulization Of Breath isosorbide dinitrate 30 mg tablet 30 mg PO TID 07/10/22 05/21/24 10/15/23 History calcium acetate(phosphat bind) 667 1,334 mg PO TIDWM 03/13/23 05/21/24 10/15/23 History mg capsule clonidine HCl 0.1 mg tablet 0.1 mg PO TID 03/13/23 05/21/24 10/15/23 History lactulose 10 gram/15 mL oral 20 g PO DAILY PRN constipation 03/13/23 05/21/24 10/15/23 History solution mirtazapine 15 mg tablet 15 mg PO BEDTIME 03/13/23 05/21/24 10/15/23 History acetaminophen 500 mg tablet 500 mg PO TID PRN Pain 10/16/23 05/21/24 Unknown History diclofenac sodium 1 % topical gel 2 g topical BID PRN Pain 10/16/23 04/19/24 Unknown History fluticasone propionate 110 1 puff inhalation BID 10/16/23 04/19/24 10/15/23 History mcg/actuation HFA aerosol inhaler nicotine 14 mg/24 hr daily 1 patch topical DAILY 10/16/23 05/21/24 10/15/23 History transdermal patch carvedilol 25 mg tablet 25 mg PO BID 01/28/24 05/21/24 Unknown History losartan 50 mg tablet 50 mg PO DAILY 01/28/24 04/19/24 Unknown History trazodone 50 mg tablet 50 mg PO BEDTIME PRN Insomnia 01/28/24 05/21/24 Unknown History amlodipine 10 mg tablet 10 mg PO DAILY 04/19/24 05/21/24 Unknown History buprenorphine 12 mg-naloxone 3 mg 1 film sublingual DAILY 04/19/24 05/21/24 Unknown History sublingual film calcium acetate(phosphat bind) 667 667 mg PO DAILY PRN snack 04/19/24 05/21/24 Unknown History mg capsule glucose 4 gram chewable tablet 16 g PO Q15M PRN hypoglycemia 04/19/24 05/21/24 Unknown History hydrocortisone 2.5 % topical cream 1 appl [place] BID PRN pain 04/19/24 04/19/24 Unknown History with perineal applicator sodium zirconium cyclosilicate 10 10 g PO MOWEFR@0900 04/19/24 05/21/24 Unknown History gram oral powder packet (Lokelma) vitamin B comp no.3-folic acid 1 1 tab PO DAILY 04/19/24 05/21/24 Unknown History mg-vit C 60 mg-biotin 300 mcg tablet ([facility]) Physical Exam Vital Signs: Last Vital Signs Temp 97.2 F 05/22/24 08:00 Pulse 81 05/22/24 16:00 Resp 17 05/22/24 16:00 BP 160/87 H 05/22/24 16:00 Pulse Ox 98 05/22/24 16:00 O2 Del Method Room Air 05/22/24 16:00 FiO2 24 05/22/24 07:00 BMI result Body Mass Index 25.7 Results Lab Results 05/22/24 04:51 05/22/24 04:51 Lab results: Chemistry 05/21/24 05/21/24 05/22/24 15:33 18:08 04:51 Sodium 131 L 130 L Potassium 6.5 H* 5.9 H Carbon Dioxide 27 19 L BUN 40 H 20 H Creatinine 7.90 H* 5.06 H* Calcium 11.6 H D 9.8 D Phosphorus 2.2 L 2.7 Hematology 05/21/24 05/22/24 15:33 04:51 WBC 9.3 7.3 Hgb 13.1 D 11.9 L Plt Count 267 231 Assessment and Plan (1) Essential hypertension: Status: Acute (2) Hemorrhoids with complication: Status: Acute (3) Acute hyperkalemia: Status: Acute (4) Pulmonary edema: Qualifiers: Chronicity: acute Qualified Code(s): J81.0 - Acute pulmonary edema Status: Acute Plan ESRD readm with Hypoxia, HyperK and severe HTN req urgent HD last nite 1. ESRD: HD 3x/wk 2. Hypooxia: c/w pulm edmea from HTN and hypervol; improved after urgent HD 3. HyperK: K remains elevated this today despite HD last nite 4. Seveere HTN: on nicardipine drip REC: HD again tomorrow; Lokelma to control K; laxative for constipation Procedures Date of Service Date of Service: 05/22/24
[2024-05-22] MEDS: Heparin Sodium,Porcine 5,000 UNIT/ML VIAL 5000 UNIT SUBCUT (18:10)
[2024-05-22] MEDS: Sodium Zirconium Cyclosilicate 10 GM POWD.PACK PO ×2 (18:11→22:04)
[2024-05-22 20:53] LABS: Glucose, Whole Blood 177 mg/dL (60-115)
[2024-05-23] MEDS: Heparin Sodium,Porcine 5,000 UNIT/ML VIAL 5000 UNIT SUBCUT (00:14)
[2024-05-23 00:41] VITALS: PULSE 90; RESP 18; O2SAT 97
[2024-05-23 03:56] VITALS: BP 177/87; PULSE 67; RESP 18; TEMP 36.4; O2SAT 95
[2024-05-23] MEDS: hydrALAZINE HCl 20 MG/ML VIAL 10 MG IVPUSH (04:24)
[2024-05-23] MEDS: polyethylene glycoL 3350 17 GM POWD.PACK PO ×2 (05:12→12:37)
[2024-05-23] MEDS: Pantoprazole Sodium 40 MG/10 ML VIAL IVPUSH (05:13)
[2024-05-23 06:00] VITALS: BMI 25.1
[2024-05-23 06:15] VITALS: BP 172/80
[2024-05-23 07:36] LABS: Glucose, Whole Blood 81 mg/dL (60-115)
[2024-05-23 07:49] VITALS: BP 180/80; PULSE 73; RESP 20; TEMP 36.4; O2SAT 96
[2024-05-23 08:45] LABS: Hematocrit 35.6 % (37.0-47.0); Hemoglobin 11.5 g/dl (12.0-16.0); Mean Corpuscular HGB Conc 32.3 g/dl (31.0-35.0); Mean Platelet Volume 10.6 fL (9.4-12.3); Platelet Count 195 X10*3/uL (160-400); Red Blood Count 3.49 X10*6/uL (4.20-5.50); Red Cell Distribution Width 15.5 % (11.0-16.0); White Blood Count 11.5 X10*3/uL (4.8-10.8)
[2024-05-23 09:15] LABS: Anion Gap 19 (12-20); Blood Urea Nitrogen 41 mg/dL (9-16); Calcium 9.8 mg/dL (8.4-10.2); Carbon Dioxide 24 mmol/L (22-29); Chloride 92 mmol/L (96-108); Creatinine Clr Calc Pharmacy 6.8; Estimated Glomerular Filt Rate 6; Glucose Random 75 mg/dL (60-115); Potassium 4.8 mmol/L (3.3-5.1); Sodium 130 mmol/L (135-145)
[2024-05-23] MEDS: Buprenorphine/Naloxone 12/3 mg FILM 1 FILM SUBLINGUAL (09:23)
[2024-05-23] MEDS: 0.9 % Sodium Chloride Flush 3 ML SYRINGE IVFLUSH (09:24)
--- NOTE | 2024-05-23 10:25 | P.PNIM_ITS ---
Subjective Subjective Date of Service: 05/23/24 Interval History: constipated Physical Exam 2 Vital Signs: Vital Signs: Last Vital Signs Temp 97.6 F 05/23/24 07:49 Pulse 73 05/23/24 07:49 Resp 20 05/23/24 07:49 BP 180/80 H 05/23/24 07:49 Pulse Ox 96 05/23/24 07:49 O2 Del Method Room Air 05/23/24 07:49 FiO2 24 05/22/24 07:00 BMI result Body Mass Index 25.1 General: AO X 3, no acute distress Resp: CTA bilateral, no accessory muscles used CVS: S1,S2,RRR GI: soft, non tender, non distended Neuro: motor grossly intact, alert Psych: appropriate affect, appropriate insight Objective Data Active Medications Albuterol Sulfate (Albuterol Sulfate 90 Mcg 8 Gm Inhaler) 2 puff INHALE Q4H PRN PRN Reason: wheezing Albuterol Sulfate (Albuterol Sulfate (0.083%) 2.5 Mg/3 Ml Vial.Neb) 2.5 mg INHALE TID PRN PRN Reason: Shortness Of Breath Last Admin: 05/22/24 15:23 Dose: 2.5 mg Documented By: ZORAIDA Amlodipine Besylate (Amlodipine Besylate 10 Mg Tablet) 10 mg PO DAILY [facility]; Protocol Last Admin: 05/22/24 08:55 Dose: 10 mg Documented By: JANNETH Aspirin (Aspirin Enteric Coated 81 Mg Tablet.Dr) 81 mg PO DAILY [facility] Last Admin: 05/22/24 08:56 Dose: 81 mg Documented By: JANNETH Buprenorphine/Naloxone (Buprenorphine/Naloxone 12/3 Mg Film) 1 film SUBLINGUAL DAILY [facility] Last Admin: 05/23/24 09:23 Dose: 1 film Documented By: YANY Calcium Acetate (Calcium Acetate 667 Mg Capsule) 667 mg PO DAILY PRN PRN Reason: snack Calcium Acetate (Calcium Acetate 667 Mg Capsule) 1,334 mg PO TIDWM [facility] Last Admin: 05/23/24 09:25 Dose: Not Given Documented By: YANY Non-Admin Reason: Off unit: Dialysis Carvedilol (Carvedilol 25 Mg Tablet) 25 mg PO BID [facility]; Protocol Last Admin: 05/22/24 19:53 Dose: 25 mg Documented By: JASWANT Clonidine HCl (Clonidine Hcl 0.1 Mg Tablet) 0.1 mg PO TID [facility]; Protocol Last Admin: 05/22/24 19:53 Dose: 0.1 mg Documented By: JASWANT Glucose (Glucose Gel 15 Gm Gel..Gram.) 15 gm PO Q15M PRN; Protocol PRN Reason: per Hypoglycemia Standing Ord. Heparin Sodium (Porcine) (Heparin Sodium,Porcine 5,000 Unit/Ml Vial) 5,000 unit SUBCUT Q8H [facility] Last Admin: 05/23/24 00:14 Dose: 5,000 unit Documented By: JASWANT Hydralazine HCl (Hydralazine Hcl 50 Mg Tablet) 50 mg PO TID [facility]; Protocol Last Admin: 05/22/24 19:53 Dose: 50 mg Documented By: JASWANT Hydralazine HCl (Hydralazine Hcl 20 Mg/Ml Vial) 10 mg IVPUSH Q4H PRN; Protocol PRN Reason: SBP >100 Last Admin: 05/23/24 04:24 Dose: 10 mg Documented By: JASWANT Dextrose (D10) 250 mls @ 750 mls/hr IV Q15M PRN; Protocol PRN Reason: per Hypoglycemia Standing Ord. Isosorbide Dinitrate (Isosorbide Dinitrate 10 Mg Tablet) 30 mg PO TID [facility]; Protocol Last Admin: 05/22/24 19:53 Dose: 30 mg Documented By: JASWANT Multivitamins/Vitamin C (Multivitamin Tablet) 1 tab PO DAILY [facility] Last Admin: 05/22/24 08:56 Dose: 1 tab Documented By: JANNETH Ondansetron HCl (Ondansetron Hcl 4 Mg/2 Ml Vial) 4 mg IVPUSH Q6H PRN PRN Reason: Nausea and Vomiting Last Admin: 05/22/24 11:26 Dose: 4 mg Documented By: JANNETH Pantoprazole Sodium (Pantoprazole Sodium 40 Mg/10 Ml Vial) 40 mg IVPUSH DAILY@0630 [facility] Last Admin: 05/23/24 05:13 Dose: 40 mg Documented By: JASWANT Polyethylene Glycol (Polyethylene Glycol 3350 17 Gm Powd.Pack) 17 gm PO DAILY PRN PRN Reason: Constipation Last Admin: 05/23/24 05:12 Dose: 17 gm Documented By: JASWANT Sodium Chloride (0.9 % Sodium Chloride Flush 3 Ml Syringe) 3 ml IVFLUSH QSHIFT [facility] Last Admin: 05/23/24 09:24 Dose: 3 ml Documented By: YANY Labs 05/23/24 08:00 05/23/24 07:59 Labs: Laboratory Results - last 24 hr 05/22/24 05/22/24 05/22/24 11:43 16:43 20:33 MCV MCH MCHC RDW Plt Count MPV Absolute Nucleated RBC Nucleated RBC % (auto) Anion Gap Estim Creat Clear Calc Estimated GFR POC Glucose 218 H 109 177 H Random Glucose Calcium 05/23/24 05/23/24 05/23/24 07:03 07:59 08:00 MCV 102.0 H MCH 33.0 MCHC 32.3 RDW 15.5 Plt Count 195 MPV 10.6 Absolute Nucleated RBC 0.000 Nucleated RBC % (auto) 0.0 Anion Gap 19 Estim Creat Clear Calc 6.8 Estimated GFR 6 POC Glucose 81 Random Glucose 75 Calcium 9.8 Microbiology Microbiology Results: Microbiology 05/21/24 15:45 Blood Culture - Preliminary Blood - Venous No growth after 24 hours. 05/21/24 15:45 Blood Culture - Preliminary Blood - Venous No growth after 24 hours. Assessment and Plan (1) Essential hypertension: Status: Acute Plan 61F PMH end-stage renal disease, hypertension, COPD, pulmonary hypertension, hypertrophic cardiomyopathy, constipation, opiate dependence, presented with shortness of breath and lower extremity edema. In ED noted to have blood pressure over 200, labored breathing, hyperkalemia of 6.5. Was admitted to ICU for BiPAP and emergent dialysis. Respiratory status resolved, blood pressure improved potassium improved, was downgraded to medical floor Acute hypoxic respiratory failure secondary to hypertensive emergency, acute on chronic diastolic CHF inpatient with end-stage renal Resolved with dialysis Continue hydralazine, clonidine, carvedilol, amlodipine, isodril Consitpation mirlaz, dulcolax hyperkalemia resolved dm insulin dvt prophylaxis -hep sq full code reason for continued hospitalization:awaiting bm Quality Stroke Does the patient have a stroke diagnosis?: No VTE Prior VTE?: No VTE Risk Level:: Medical - low VTE Device Contraindication: N/A - Device Ordered VTE Drug Contraindication: N/A - Med Ordered
[2024-05-23] MEDS: ondansetron HCL 4 MG/2 ML VIAL IVPUSH (12:23)
[2024-05-23 12:30] VITALS: BP 158/75; PULSE 70; RESP 20; TEMP 36.5; O2SAT 98
[2024-05-23] MEDS: Multivitamin TABLET 1 TAB PO (12:36)
[2024-05-23] MEDS: Aspirin Enteric Coated 81 MG TABLET.DR PO (12:36)
[2024-05-23] MEDS: Isosorbide Dinitrate 10 MG TABLET 30 MG PO (12:36)
[2024-05-23] MEDS: carvediloL 25 MG TABLET PO (12:36)
[2024-05-23] MEDS: amLODIPine Besylate 10 MG TABLET PO (12:36)
[2024-05-23] MEDS: cloNIDine HCL 0.1 MG TABLET PO (12:36)
[2024-05-23] MEDS: hydrALAZINE HCl 50 MG TABLET PO (12:36)
--- NOTE | 2024-05-23 12:36 | P.DS_ITS ---
DS: Providers Provider Date of Service: 05/23/24 Date of admission: 05/21/24 16:52 Date of discharge: 05/23/24 Primary care physician: Sammy Vicente MD Consults: 05/21/24 16:48 Consult to Nephrology Stat Consulting Provider: [facility] Reason for consultation: hyperkalemia Has provider been notified: No DS: Diagnosis Discharge Diagnosis (1) Essential hypertension: Status: Acute DS: Summary Hospital Course Hospital Course: from initial hpi: 61-year-old female with underlying history of end-stage renal disease noncompliant with dialysis which she has Sunday and Fridays, diabetes, hypertension, COPD, COVID, asthma, pulmonary hypertension, hypertrophic cardiomyopathy, constipation, opioid dependence on buprenorphine, recurrent h yperkalemia in the setting of renal disease, tobacco abuse, GERD, chronic back pain, obesity among others. ?Patient presented to the emergency room complaining of shortness of breath for the past 3 days along with mild leg swelling.? Patient was brought via EMS who reported a blood pressure greater than 200, patient was diaphoretic and anxious upon arrival. ?Initial blood pressure 208/159 in mother distress, labored breathing with 1+ pitting edema of lower extremities.? Patient was given Lasix steroids, transdermal nitroglycerin albuterol, her potassium was 6.5 and she was treated with insulin D50.? Placed on BiPAP and subsequently started on nitroglycerin drip, nephrology was consulted for emergent dialysis and the patient was transferred to the ICU hospital course: Patient was admitted for acute hypoxic respiratory failure secondary to hypertensive emergency and acute on chronic diastolic CHF in a patient with end- stage renal disease. She was admitted to the ICU received emergent hemodialysis and continued on antihypertensives. Hypoxia resolved, hyperkalemia resolved, patient feeling back to baseline. For constipation received MiraLax and Dulcolax. For diabetes continued on insulin. Patient is feeling better will be discharged home. Time Attestation Discharge Coordination Time (in mins): 32 Quality: Safe Use of Opioids Does Pt have an Active Cancer Diagnosis on the Problem List?: No Quality: Stroke Does the patient have a stroke diagnosis?: No Physical Exam Vital Signs: Vital Signs: Last Vital Signs Temp 97.7 F 05/23/24 12:30 Pulse 70 05/23/24 12:30 Resp 20 05/23/24 12:30 BP 158/75 H 05/23/24 12:30 Pulse Ox 98 05/23/24 12:30 O2 Del Method Room Air 05/23/24 12:30 FiO2 24 05/22/24 07:00 BMI result Body Mass Index 25.1 General: AO X 3, no acute distress Resp: CTA bilateral, no accessory muscles used CVS: S1,S2,RRR GI: soft, non tender, non distended Neuro: motor grossly intact, alert Psych: appropriate affect, appropriate insight DS: Data Data Completed and Pending Completed studies during hospitalization [Text1]: Procedures Assistance with Respiratory Ventilation, Less than 24 Consecutive Hours, Continuous Positive Airway Pressure (04/19/24) Excision of Left Kidney, Percutaneous Approach, Diagnostic (02/25/21) Excision of Right Kidney, Percutaneous Approach, Diagnostic (10/22/20) Fluoroscopy of Superior Vena Cava using Low Osmolar Contrast, Guidance (08/07/22) Insertion of Endotracheal Airway into Trachea, Via Natural or Artificial Opening (10/12/21) Insertion of Infusion Device into Right Atrium, Percutaneous Approach (08/07/22) Insertion of Infusion Device into Superior Vena Cava, Percutaneous Approach (04/17/23) Insertion of Tunneled Vascular Access Device into Chest Subcutaneous Tissue and Fascia, Percutaneous Approach (04/17/23) Performance of Urinary Filtration, Intermittent, Less than 6 Hours Per Day (04/19/24) Removal of Totally Implantable Vascular Access Device from Trunk Subcutaneous Tissue and Fascia, Open Approach (08/07/22) Respiratory Ventilation, 24-96 Consecutive Hours (10/12/21) Transfusion of Nonautologous Red Blood Cells into Peripheral Vein, Percutaneous Approach (02/25/21) Ultrasonography of Superior Vena Cava, Guidance (04/17/23) Labs on day of discharge: Laboratory Results - last 24 hr 05/22/24 05/22/24 05/23/24 16:43 20:33 07:03 WBC RBC Hgb Hct MCV MCH MCHC RDW Plt Count MPV Absolute Nucleated RBC Nucleated RBC % (auto) Sodium Potassium Chloride Carbon Dioxide Anion Gap BUN Creatinine Estim Creat Clear Calc Estimated GFR POC Glucose 109 177 H 81 Random Glucose Calcium 05/23/24 05/23/24 07:59 08:00 WBC 11.5 H RBC 3.49 L Hgb 11.5 L Hct 35.6 L MCV 102.0 H MCH 33.0 MCHC 32.3 RDW 15.5 Plt Count 195 MPV 10.6 Absolute Nucleated RBC 0.000 Nucleated RBC % (auto) 0.0 Sodium 130 L Potassium 4.8 Chloride 92 L Carbon Dioxide 24 Anion Gap 19 BUN 41 H Creatinine 7.09 H* Estim Creat Clear Calc 6.8 Estimated GFR 6 POC Glucose Random Glucose 75 Calcium 9.8 Preliminary micro results at discharge 05/21/24 15:45 Blood Culture - Preliminary Blood - Venous No growth after 24 hours. 05/21/24 15:45 Blood Culture - Preliminary Blood - Venous No growth after 24 hours. Discharge Plan Discharge Anticipated Discharge Date/Time: 05/23/24 12:34 Patient Disposition: Home, Self-Care Discharge Diagnosis: hypertensive emergency, hyperkalemia Referrals: Sammy Vicente MD [Primary Care Provider] - 1 Week Discharge Medications: Continued pantoprazole 40 mg Tablet,Delayed Release (Dr/Ec) 40 mg PO DAILY@0630 melatonin 5 mg Tablet 5 mg PO BEDTIME PRN (Reason: Sleep) aspirin 81 mg tablet,delayed release (DR/EC) 1 tab PO DAILY albuterol sulfate [Ventolin HFA] 90 mcg/actuation HFA aerosol inhaler 2 puff INHALATION Q4H PRN (Reason: wheezing) ondansetron 4 mg tablet,disintegrating 4 mg PO BID PRN (Reason: nausea and vomiting) albuterol sulfate 2.5 mg /3 mL (0.083 %) solution for nebulization 1 amp inhalation TID PRN (Reason: Shortness Of Breath) isosorbide dinitrate 30 mg Tablet 30 mg PO TID Rx Instructions: allow nitrate-free interval of 12-14 hrs per 24-hr period Elle-Sharifa Rx 1-60-300 mg-mg-mcg tablet 1 tab PO DAILY buprenorphine-naloxone 12-3 mg film 1 film sublingual DAILY Lokelma 10 gram powder in packet 10 g PO MOWEFR@0900 amlodipine 10 mg tablet 10 mg PO DAILY glucose 4 gram tablet,chewable 16 g PO Q15M PRN (Reason: hypoglycemia) calcium acetate(phosphat bind) 667 mg capsule 667 mg PO DAILY PRN (Reason: snack) hydrocortisone 2.5 % cream with perineal applicator 1 appl [place] BID PRN (Reason: pain) hydralazine 50 mg Tablet 50 mg PO TID Qty: 270 0RF Protocol: Hold for SBP< HOLD for SBP < : 90 clonidine HCl 0.1 mg tablet 0.1 mg PO TID mirtazapine 15 mg tablet 15 mg PO BEDTIME calcium acetate(phosphat bind) 667 mg capsule 1,334 mg PO TIDWM lactulose 10 gram/15 mL solution 20 g PO DAILY PRN (Reason: constipation) nicotine 14 mg/24 hr patch 24 hour 1 patch topical DAILY acetaminophen 500 mg tablet 500 mg PO TID PRN (Reason: Pain) diclofenac sodium 1 % gel 2 g topical BID PRN (Reason: Pain) fluticasone propionate 110 mcg/actuation HFA aerosol inhaler 1 puff INHALATION BID carvedilol 25 mg tablet 25 mg PO BID losartan 50 mg tablet 50 mg PO DAILY trazodone 50 mg tablet 50 mg PO BEDTIME PRN (Reason: Insomnia) Discharge Orders: Discharge Order (Routine); Ordered 05/23/24 Ordered By: Franck James Diet: Advance to usual diet Activity on Discharge: As tolerated Stand Alone Forms: Patient Portal Discharge page Print Language: Cook Islander Care Plan Goals: recovery Health Concerns: esrd, htn Plan of Treatment: bp meds, dialysis, avoid salt Assessment: see above
[2024-05-23] MEDS: Calcium Acetate 667 MG CAPSULE 1334 MG PO (12:37)
[2024-05-23] MEDS: bisacodyL 10 MG SUPP.RECT PR (12:40)
--- NOTE | 2024-05-23 15:29 | MHC.CM.PN ---
Pt is medically cleared for discharge home with resumption of [facility], she will transport home via [facility] ([facility] auth received run# [id number]).
[2024-05-23 20:52] LABS: Glucose, Whole Blood 194 mg/dL (60-115)
== END 2024-05-23 17:00 | disposition home or self-care (01) | DRG 304 ==
LOC: HO.ED 16:52 → HO.EDOVER 17:01 → HO.ICU 17:11 → HO.IMC 05-22 16:57
PROVIDERS: Physician Assistant Medical; Admitting Provider Internal Medicine Critical Care Medicine; Emergency Provider Emergency Medicine; PCP Internal Medicine; Visit Provider Internal Medicine
DX: I16.1 Hypertensive emergency (principal); I50.33 Acute on chronic diastolic (congestive) heart failure; N18.6 End stage renal disease; J96.01 Acute respiratory failure with hypoxia; F11.20 Opioid dependence, uncomplicated; I42.2 Other hypertrophic cardiomyopathy; K59.00 Constipation, unspecified; I13.2 Hypertensive heart and chronic kidney disease with heart failure and with stage 5 chronic kidney disease, or end stage renal disease; I27.20 Pulmonary hypertension, unspecified; E87.5 Hyperkalemia; Z20.822 Contact with and (suspected) exposure to COVID-19; Z91.158 Patient's noncompliance with renal dialysis for other reason; Z99.2 Dependence on renal dialysis; Z79.82 Long term (current) use of aspirin; Z79.51 Long term (current) use of inhaled steroids; Z79.899 Other long term (current) drug therapy
CPT/HCPCS: 0241U; 36415; 71045; 80048; 80053; 80076; 82803; 82947; 83605; 83735; 83880; 84100; 84484; 85025; 85027; 85610; 87040; 90999; 93005; 94640; 94660; 99285; J0360; J0613; J1644; J1940; J2305; J2404; J2405; J2470; J2919

== ENCOUNTER → 2024-05-21 14:51 | Outpatient (BNV) | payer OTHER, SELFPAY | PROVIDERS: Admitting Provider Internal Medicine Critical Care Medicine; Emergency Provider Emergency Medicine; PCP Internal Medicine; Visit Provider Internal Medicine Cardiovascular Disease | DX: R94.31 Abnormal electrocardiogram [ECG] [EKG] (principal); R06.00 Dyspnea, unspecified | CPT/HCPCS: 93010 ==

== ENCOUNTER → 2024-05-21 14:52 | Outpatient (BNV) | payer OTHER, SELFPAY | PROVIDERS: Admitting Provider Internal Medicine Critical Care Medicine; Emergency Provider Emergency Medicine; PCP Internal Medicine; Visit Provider Radiology Diagnostic Radiology | DX: J81.1 Chronic pulmonary edema (principal) | CPT/HCPCS: 71045 ==

== ENCOUNTER 2024-05-21 16:52 | Outpatient (BNV) | payer OTHER, SELFPAY | END 2024-05-22 09:35 | PROVIDERS: Admitting Provider Internal Medicine Critical Care Medicine; Emergency Provider Emergency Medicine; PCP Internal Medicine; Visit Provider Radiology Diagnostic Radiology | DX: J81.1 Chronic pulmonary edema (principal) | CPT/HCPCS: 71045 ==

== ENCOUNTER → 2024-05-21 16:52 | Outpatient (BNV) | payer OTHER, SELFPAY | PROVIDERS: Admitting Provider Internal Medicine Critical Care Medicine; Emergency Provider Emergency Medicine; PCP Internal Medicine; Visit Provider Physician Assistant Medical | DX: J81.0 Acute pulmonary edema (principal); I10 Essential (primary) hypertension; K64.8 Other hemorrhoids; E87.5 Hyperkalemia | CPT/HCPCS: 99291 ==

== ENCOUNTER → 2024-05-21 16:52 | Outpatient (BNV) | payer OTHER, SELFPAY | PROVIDERS: Admitting Provider Internal Medicine Critical Care Medicine; Emergency Provider Emergency Medicine; PCP Internal Medicine; Visit Provider Internal Medicine | DX: I16.1 Hypertensive emergency (principal) | CPT/HCPCS: 99239 ==

== ENCOUNTER 2024-05-29 10:43 | Inpatient (IN) | payer OTHER, SELFPAY ==
[2024-05-29] VITALS (31 sets, daily range): BP systolic 96–205; BP diastolic 38–98; PULSE 18–98; RESP 12–29; TEMP 35–37; O2SAT 90–100; BMI 29.8; BMI 26.4
--- NOTE | ~2024-05-29 | CT_ITS ---
EXAMINATION: CT ABDOMEN AND PELVIS WITHOUT CONTRAST CLINICAL INFORMATION: Abdominal pain. COMPARISON: CT dated February 18, 2024 TECHNIQUE: Multidetector volumetric imaging was performed from the superior aspect of the liver through the pubic symphysis. Sagittal and coronal reformatted images were obtained on the technologist's workstation. This CT examination was performed using dose optimization techniques as appropriate, variously including the following: *Automated exposure control *Adjustment of mA and/or kV according to patient size (this includes techniques or standardized protocols for targeted exams where dose is matched to indication/reason for exam; i.e. extremities or head) *Use of iterative reconstruction technique. DLP: 466 mGy centimeters FINDINGS: Limited evaluation of the intra-abdominal organs and vascular structures due to lack of IV contrast. LUNG BASES: Patchy groundglass in the periphery of the lung bases. Subcentimeter subpleural nodules, lung bases. Catheter-tipped in the right atrium region. LIVER, GALLBLADDER, AND BILIARY TREE: Liver measures 16 cm subtle nodular surface. Status post cholecystectomy. No gross intrahepatic or extra hepatic biliary ductal dilatation. PANCREAS: Pancreatic edema pattern trace of edema into the left paracolic gutter. No main pancreatic ductal dilatation. SPLEEN: 8 cm. ADRENAL GLANDS: No nodular lesions. KIDNEYS AND URETERS: Renal cortical thinning and small appearance of the kidneys. No gross hydronephrosis. No gross nephrolithiasis. 4 cm exophytic cystic lesion upper pole left kidney. BLADDER: Collapsed. GASTROINTESTINAL TRACT: Abundant stool within the large intestine. Residual contrast within the large intestine and fundus of the stomach. No intestinal obstruction pattern. No ascites. No pneumoperitoneum. No pneumatosis intestinalis. Appendix is normal. ABDOMINAL WALL: Diastases abdominal rectus muscles in the periumbilical region and fat-containing umbilical hernia. LYMPH NODES: Nonspecific prominent lymph nodes, mesenteric and retroperitoneal. VASCULAR: There is a 13 mm peripheral calcified vascular abnormality in the right main renal artery. Calcified plaques in the abdominal aorta wall and iliac arteries without aneurysm. Calcified plaques in the origin of the mesenteric arteries and main renal arteries. PELVIC VISCERA: I do not see gross masses in the adnexa. OSSEOUS STRUCTURES: Multilevel thoracolumbar spondylosis. Grade 1 anterolisthesis L4-5 resulting in bilateral neuroforamina stenosis. Large Schmorl node in superior endplate of L3. Levoconvex rotoscoliosis apex at L3. No acute fracture or dislocation in either hip. CT/CT abdomen pelvis wo IV con IMPRESSION: Concerning acute pancreatitis in the correct clinical settings of iterative diagnosis of peptic ulcer disease. Hepatomegaly and questionable hepatocellular disease. 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 Medical renal disease without hydronephrosis. 4 cm cystic lesion, upper pole left kidney. Fleischner guidelines were followed. Electronically signed by: Sundar Lindsey MD 05/30/2024 11:10 AM [facility]
--- NOTE | ~2024-05-29 | XR_ITS ---
EXAMINATION: XR CHEST CLINICAL INFORMATION: SOB COMPARISON: Chest x-ray one to . TECHNIQUE: Frontal view of the chest was obtained. FINDINGS: The lungs are hypoexpanded with prominent bilateral parahilar vascular markings likely congestion. No consolidation or pleural effusion seen. Heart size enlarged. There is a right jugular central dialysis catheter with its tip in the distal SVC. There is mild spondylosis. XR/XR chest 1V IMPRESSION: Prominent bilateral parahilar vascular markings suggestive congestion. Electronically signed by: Orlando Dozier MD 05/29/2024 11:33 AM EST
--- NOTE | ~2024-05-29 | US_ITS ---
CLINICAL HISTORY: abdominal pain, pancreatitis, to be done on 06 01 per ordering US abdomen complete Comparison: None Findings: The visualized pancreas is normal. The aorta and inferior vena cava are normal caliber. The appearance of the liver suggests hepatic steatosis or nonspecific hepatocellular pathology with no focal lesion.. There is no intrahepatic bile duct dilatation. The common duct is 5.0 mm in diameter. The gallbladder is normal. There is no sonographic Luna sign. The main portal vein is antegrade. The right kidney is 10.0 cm in length. The left kidney is 9.2 cm in length. The spleen is normal. No ascites. IMPRESSION: 1. Hepatic steatosis versus nonspecific hepatocellular pathology. Correlate with clinical and laboratory findings This document has been electronically signed by: Nicolas Zarate MD on 06/01/2024 09:56:23
--- NOTE | 2024-05-29 10:44 | ECG_ITS ---
Test Reason : SOB Blood Pressure : */* mmHG Vent. Rate : 58 BPM Atrial Rate : 58 BPM P-R Int : 220 ms QRS Dur : 112 ms QT Int : 458 ms P-R-T Axes : 63 -30 33 degrees QTcB Int : 449 ms Sinus bradycardia with 1st degree A-V block Left axis deviation Minimal voltage criteria for LVH, may be normal variant ( Jona product ) Abnormal ECG When compared with ECG of 21-May-2024 16:58, Vent. rate has decreased by 37 bpm QRS duration has decreased Minimal criteria for Septal infarct are no longer Present T wave inversion no longer evident in Inferior leads Referred By: Jessika Treadwell Electronically Signed By: SALVADOR SARABIA
[2024-05-29 11:01] LABS: MANUAL DIFF FLAG NO
[2024-05-29 11:02] LABS: Basophils Percent Auto 0.1 % (0-2); Eosinophils Percent Auto 0.2 % (0-4); Hematocrit 31.5 % (37.0-47.0); Hemoglobin 10.8 g/dl (12.0-16.0); Imm Gran Abs Auto 0.06 X10*3/uL (0.00-0.03); Imm Gran Pct Auto 0.6 % (0.0-0.4); Mean Corpuscular HGB Conc 34.3 g/dl (31.0-35.0); Mean Corpuscular Hemoglobin 33.4 pg (27.0-33.0); Mean Corpuscular Volume 97.5 fL (80.0-98.0); Mean Platelet Volume 10.1 fL (9.4-12.3); Monocytes Absolute Auto 0.5 X10*3/uL (0.1-1.2); Monocytes Percent Auto 4.4 % (2-11); Neutrophils Absolute Auto 9.1 x10*3/uL (2.0-8.3); Neutrophils Percent Auto 85.7 % (45-73); Platelet Count 232 X10*3/uL (160-400); Red Blood Count 3.23 X10*6/uL (4.20-5.50); Red Cell Distribution Width 15.2 % (11.0-16.0); White Blood Count 10.6 X10*3/uL (4.8-10.8)
[2024-05-29] MEDS: Nitroglycerin 2 % Oint 1 GM Packet 1 INCH TRANSDERMA ×2 (11:02→11:45)
[2024-05-29] MEDS: Furosemide 100 MG/10 ML VIAL 80 MG IVPUSH (11:03)
[2024-05-29 11:07] LABS: VBG Base Excess -4.9 mmol/L; VBG HCO3 20 mmol/L (22-26); VBG pCO2 39 mmHg; VBG pH 7.32 (7.32-7.43); VBG pO2 104 mmHg
[2024-05-29 11:09] LABS: Venous Blood Gas Refer to POC result
[2024-05-29 11:10] LABS: INTERNATIONAL NORM RATIO 0.9 (0.9-1.1); Prothrombin Time 10.5 SEC (10.9-12.4)
--- NOTE | 2024-05-29 11:20 | ED_ITS ---
HPI - General Adult General Chief complaint: Upper Respiratory Symptoms Stated complaint: UNREPSPONSIVE Time Seen by Provider: 05/29/24 10:47 History of Present Illness ED Provider: Dilcia BARON narrative: The patient is a 69-year-old female who was a dialysis patient. She normally receives dialysis on Tuesdays, , and Saturdays. The patient also has a history of problems with a recurrent rectal prolapse. Apparently she had a rectal prolapse 2 days ago on Sunday and went to the emergency room at [facility]. Apparently according to documentation from the [facility] ER visit she did not have rectal prolapse at the time of the exam by the physician there. She had labs that showed a potassium of 5.8. She had a CT scan of the abdomen and pelvis that showed ?rectal wall thickening with adjacent stranding consistent with proctitis. ? The patient was discharged with instructions to use MiraLax. She ultimately missed her dialysis on Sunday because of her emergency room visit at [facility] on that day. Today short of breath and the family drove her to the emergency room. She was not only short of breath but had an altered mental status. When they arrived at the hospital the patient was too short of breath and to altered to get out of the car and so she had to be assisted by hospital staff out of the car. She was wheeled immediately to room 5 where she was found to be diaphoretic and had a somewhat diminished level of consciousness. She looked short of breath and was placed on BiPAP. There is no report of any fever or other symptoms.. Related Data Home Medications ?Medication ?Instructions ?Recorded ?Confirmed melatonin 5 mg tablet 5 mg PO BEDTIME PRN Sleep 04/15/21 05/29/24 pantoprazole 40 mg tablet,delayed 40 mg PO DAILY@0630 04/15/21 05/29/24 release aspirin 81 mg tablet,delayed 1 tab PO DAILY 10/11/21 05/29/24 release albuterol sulfate 90 mcg/actuation 2 puff inhalation Q4H PRN wheezing 01/31/22 05/29/24 aerosol inhaler (Ventolin HFA) ondansetron 4 mg disintegrating 4 mg PO BID PRN nausea and vomiting 03/09/22 05/29/24 tablet albuterol sulfate 2.5 mg/3 mL 1 amp inhalation TID PRN Shortness 05/08/22 05/29/24 (0.083 %) solution for nebulization Of Breath isosorbide dinitrate 30 mg tablet 30 mg PO TID 07/10/22 05/29/24 calcium acetate(phosphat bind) 667 1,334 mg PO TIDWM 03/13/23 05/29/24 mg capsule clonidine HCl 0.1 mg tablet 0.1 mg PO TID 03/13/23 05/29/24 lactulose 10 gram/15 mL oral 20 g PO DAILY PRN constipation 03/13/23 05/29/24 solution mirtazapine 15 mg tablet 15 mg PO BEDTIME 03/13/23 05/29/24 acetaminophen 500 mg tablet 500 mg PO TID PRN Pain 10/16/23 05/29/24 nicotine 14 mg/24 hr daily 1 patch topical DAILY 10/16/23 05/29/24 transdermal patch carvedilol 25 mg tablet 25 mg PO BID 01/28/24 05/29/24 trazodone 50 mg tablet 50 mg PO BEDTIME PRN Insomnia 01/28/24 05/29/24 amlodipine 10 mg tablet 10 mg PO DAILY 04/19/24 05/29/24 buprenorphine 12 mg-naloxone 3 mg 1 film sublingual DAILY 04/19/24 05/29/24 sublingual film calcium acetate(phosphat bind) 667 667 mg PO DAILY PRN snack 04/19/24 05/29/24 mg capsule glucose 4 gram chewable tablet 16 g PO Q15M PRN hypoglycemia 04/19/24 05/29/24 hydrocortisone 2.5 % topical cream 1 appl [place] BID PRN pain 04/19/24 05/29/24 with perineal applicator sodium zirconium cyclosilicate 10 10 g PO MOWEFR@0900 04/19/24 05/29/24 gram oral powder packet (Lokelma) vitamin B comp no.3-folic acid 1 1 tab PO DAILY 04/19/24 05/29/24 mg-vit C 60 mg-biotin 300 mcg tablet (Elle-Sharifa Rx) Previous Rx's ?Medication ?Instructions ?Recorded hydralazine 50 mg tablet 50 mg PO TID #270 tabs 04/24/24 Allergies Allergy/AdvReac Type Severity Reaction Status Date / Time No Known Allergies Allergy Verified 05/29/24 10:51 Review of Systems 2 Review of Systems: Yes all other systems are reviewed and are negative [facility] Past Medical History Medical History Diabetes mellitus Hemorrhoids that prolapse with straining, but retract spontaneously Hemorrhoids with complication ESRD on dialysis Delirium Sepsis Tachycardia Leukocytosis Fever End stage chronic kidney disease Congestive heart failure with left ventricular dysfunction ESRD (end stage renal disease) Hypertension Pulmonary congestion COVID-19 virus infection Asthma with COPD with exacerbation COVID ESRD (end stage renal disease) Hypertrophic cardiomyopathy Acute exacerbation of chronic obstructive pulmonary disease (COPD) Heart failure with preserved ejection fraction Constipation End stage renal disease on dialysis Ascites Anasarca Ischemic colitis Acute GI bleeding Anemia Dialysis patient, noncompliant Anemia in chronic kidney disease Opioid withdrawal Essential hypertension Surgical History No pertinent past surgical history Family History Family History Other Hypertension Social History Social History Household Members: Family Housing: Apartment Do you presently have visiting nurse or other home services: Yes ([facility]na) Unable to assess alcohol history related to: Unknown Alcohol intake: former Comment: pt in dialysis at this time. Patient Tobacco Use Status: Current everyday Tobacco user Tobacco use type: Cigarette Cigarette Packs Per Day: 2 Cigarettes Per Day: 1 Years Smoked: 50 +/- Smoked in Last 30 Days: Yes e-Cigarette/Vaping Use: Never Used Patient Interested in Nicotine Replacement: No Patient Given Instructions on How to Stop Smoking: Yes Date Education Initiated: 05/29/24 Second Hand Smoke Exposure: No Use of substances other than those prescribed or required for medical reasons: No Substance Use Type: Marijuana Have you been hit, kicked, punched, or otherwise hurt by someone within the past year? If so, by whom?: No Do you feel safe in your current relationship?: Yes Is there a partner from a previous relationship who is making you feel unsafe now?: No Are you made to feel afraid or neglected: No Spiritual Healthcare Practices: none per patient Orthodoxy Healthcare Practices: none per patient Cultural Healthcare Practices: none per patient Advance Directives: Yes Advance Directives on File: Yes Advance Directives Date on File: 04/19/23 Do you have a plan to hurt others: No Plan Recently lost weight without trying: Unsure Eating poorly because of decreased appetite: No Nutrition Risks: No Nutritional Risk Patient : No : No Poor oral hygiene: No service: No Current occupational status: disabled Physical Exam ED Vital Signs: Vital Signs - 24 hr 05/29/24 10:49 05/29/24 10:52 05/29/24 11:02 Temperature Pulse Rate 77 62 Respiratory Rate 20 22 H Blood Pressure 203/98 H 205/80 H Pulse Oximetry 98 Oxygen Delivery Method Room Air 05/29/24 11:03 05/29/24 11:08 05/29/24 11:10 Temperature Pulse Rate Respiratory Rate 29 H Blood Pressure 205/80 H Pulse Oximetry 93 Oxygen Delivery Method BiPAP 05/29/24 11:10 05/29/24 11:47 05/29/24 12:05 Temperature 95 F L Pulse Rate 59 57 58 Respiratory Rate 18 20 20 Blood Pressure 205/80 H 167/72 H Pulse Oximetry 93 90 L Oxygen Delivery Method BiPAP BiPAP 05/29/24 12:28 05/29/24 13:37 05/29/24 13:38 Temperature Pulse Rate 71 65 Respiratory Rate 15 20 Blood Pressure 138/62 Pulse Oximetry 96 98 Oxygen Delivery Method Aerosol Mask BiPAP BiPAP 05/29/24 13:48 Temperature Pulse Rate 98 Respiratory Rate 18 Blood Pressure 138/65 Pulse Oximetry 98 Oxygen Delivery Method BiPAP BMI result Body Mass Index 26.4 Const Other: The patient is a chronically ill-appearing 69-year-old woman who was short of breath and diaphoretic. She seems somnolent but responded to painful stimuli. HENMT Other: Face is symmetrical. Mucous membranes moist. Eyes Other: Pupils are round equal, conjunctivae clear Neck Other: The patient has a thick neck. It was difficult to say whether there was JVD. Resp Other: Crackles bilaterally, tachypnea. Cardio Rate: regular rate Rhythm: regular rhythm Heart sounds: S1 normal heart sound present and S2 normal heart sound present GI Other: The abdomen is soft and did not seem tender. Skin Other: Skin was diaphoretic Neuro Other: The patient was somewhat somnolent but responded to loud verbal and noxious stimuli. Face is symmetrical. Tongue is midline. Eye movements intact. She has symmetrical tone in her extremities Extrem Other: No calf asymmetry or tenderness Medications Administered Generic Name Dose Route Start Last Admin Trade Name Goyo PRN Reason Stop Dose Admin Famotidine 20 mg 05/29/24 13:45 05/29/24 14:07 Famotidine/Pf 20 Mg/2 Ml Vial IVPUSH 20 mg BID PHAN Administration Heparin Sodium (Porcine) 5,000 unit 05/29/24 13:45 05/29/24 14:07 Heparin Sodium,Porcine 5,000 Unit/Ml Vial SUBCUT 5,000 unit Q8H PHAN Administration Discontinued Medications Generic Name Dose Route Start Last Admin Trade Name Goyo PRN Reason Stop Dose Admin Albuterol Sulfate 10 mg 05/29/24 12:00 05/29/24 12:04 Albuterol Sulfate (0.083%) 2.5 Mg/3 Ml Vial.Neb INHALE 05/29/24 12:01 10 mg ONCE ONE Administration Dextrose 25 gm 05/29/24 12:15 05/29/24 12:13 Dextrose 50 % 25 Gm/50 Ml Syringe IVPUSH 05/29/24 12:16 25 gm ONCE ONE Administration Furosemide 80 mg 05/29/24 10:54 05/29/24 11:03 Furosemide 100 Mg/10 Ml Vial IVPUSH 05/29/24 10:55 80 mg ONCE ONE Administration Protocol Calcium Gluconate 2 gm in 100 mls @ 400 mls/hr 05/29/24 11:21 05/29/24 12:00 Calcium Gluconate IV 05/29/24 11:35 Infused ONCE ONE Infusion Insulin Human Regular 10 unit 05/29/24 12:01 05/29/24 12:11 Insulin Regular, Human 100 Unit/Ml 10 Ml Vial IVPUSH 05/29/24 12:02 10 unit ONCE ONE Administration Nitroglycerin 1 inch 05/29/24 10:54 05/29/24 11:02 Nitroglycerin 2 % Oint 1 Gm Packet TRANSDERMA 05/29/24 10:55 1 inch ONCE ONE Administration Nitroglycerin 1 inch 05/29/24 11:22 05/29/24 11:45 Nitroglycerin 2 % Oint 1 Gm Packet TRANSDERMA 05/29/24 11:23 1 inch ONCE ONE Administration Medical Decision Making Medical Decision Making MDM Narrative: The patient is a 69-year-old woman who was a dialysis patient. She is a Sunday, , Sunday dialysis patient. Today is . She missed her dialysis 2 days ago on Sunday and has also not had her dialysis today. She presents short of breath and diaphoretic in a manner suggestive of pulmonary edema. Also had a somewhat somnolent level of consciousness. She was brought in immediately from her family's vehicle immediately into room 5. Blood sugar was not low. She was placed on BiPAP. She was hypertensive. She was given nitroglycerin paste. She has an elevated potassium of 6.6. She was treated with IV calcium, IV insulin and glucose, albuterol, and furosemide. Chest x-ray was consistent with pulmonary edema. I believe the patient's presentation is related to fluid overload from lack of recent dialysis. I spoke with Dr. Castro of Nephrology and I communicated with Dr. Will of the intensive care unit. The patient will be kept on BiPAP until we can admit the patient to the ICU for dialysis. Lab Data 05/29/24 10:51 05/29/24 10:51 Labs: Lab Results 05/29/24 05/29/24 05/29/24 Range/Units 10:51 10:52 10:54 WBC 10.6 (4.8-10.8) X10*3/uL RBC 3.23 L (4.20-5.50) X10*6/uL Hgb 10.8 L (12.0-16.0) g/dl Hct 31.5 L (37.0-47.0) % MCV 97.5 (80.0-98.0) fL MCH 33.4 H (27.0-33.0) pg MCHC 34.3 (31.0-35.0) g/dl RDW 15.2 (11.0-16.0) % Plt Count 232 (160-400) X10*3/uL MPV 10.1 (9.4-12.3) fL Immature Gran % (Auto) 0.6 H (0.0-0.4) % Neut % (Auto) 85.7 H (45-73) % Lymph % (Auto) 9.0 L (20-40) % [place] % (Auto) 4.4 (2-11) % Eos % (Auto) 0.2 (0-4) % Baso % (Auto) 0.1 (0-2) % Lymph # (Auto) 1.0 L (1.2-4.9) X10*3/uL [place] # (Auto) 0.5 (0.1-1.2) X10*3/uL Eos # (Auto) 0.0 (0.0-0.4) X10*3/uL Baso # (Auto) 0.0 (0.0-0.2) X10*3/uL Abs Immat Gran (auto) 0.06 H (0.00-0.03) X10*3/uL Absolute Neuts (auto) 9.1 H (2.0-8.3) x10*3/uL Absolute Nucleated RBC 0.000 (0.0-0.012) X10*3/uL Nucleated RBC % (auto) 0.0 (0.0-0.2) /100WBC PT 10.5 L (10.9-12.4) SEC INR 0.9 (0.9-1.1) VBG pH (7.32-7.43) VBG pCO2 mmHg VBG pO2 mmHg VBG HCO3 (22-26) mmol/L VBG O2 Saturation % VBG Base Excess mmol/L Sodium 124 L (135-145) mmol/L Potassium 6.6 H* D (3.3-5.1) mmol/L Chloride 85 L (96-108) mmol/L Carbon Dioxide 20 L (22-29) mmol/L Anion Gap 26 H (12-20) BUN 74 H (9-16) mg/dL Creatinine 11.11 H* (0.5-1.4) mg/dL Estim Creat Clear Calc 4.1 Estimated GFR 3 POC Glucose (60-115) mg/dL Random Glucose 231 H (60-115) mg/dL Lactic Acid 2.6 H* (0.5-2.0) mmol/L Lactic Acid F/U @ 2Hr (0.5-2.0) mmol/L Calcium 10.3 H (8.4-10.2) mg/dL Phosphorus 4.1 (2.7-4.5) mg/dL Magnesium 3.5 H* (1.6-2.6) mg/dL Total Bilirubin 0.3 (0.0-1.0) mg/dL Direct Bilirubin 0.1 (0.0-0.5) mg/dL AST 29 (5-31) U/L ALT 18 (0-31) U/L Alkaline Phosphatase 129 H (39-117) U/L Troponin I High Sens 52.7 H* D (<3.5-17.0) ng/L B-Natriuretic Peptide 4686 H (<100) pg/mL Total Protein 8.0 (6.5-8.0) g/dL Albumin 4.4 (3.5-5.0) g/dL Influenza Type A (PCR) NEGATIVE (Negative) Influenza Type B (PCR) NEGATIVE (Negative) RSV RNA Qual (PCR) NEGATIVE (Negative) SARS-CoV-2 RNA (RT-PCR) NEGATIVE (Negative) 05/29/24 05/29/24 05/29/24 Range/Units 11:02 12:31 13:27 WBC (4.8-10.8) X10*3/uL RBC (4.20-5.50) X10*6/uL Hgb (12.0-16.0) g/dl Hct (37.0-47.0) % MCV (80.0-98.0) fL MCH (27.0-33.0) pg MCHC (31.0-35.0) g/dl RDW (11.0-16.0) % Plt Count (160-400) X10*3/uL MPV (9.4-12.3) fL Immature Gran % (Auto) (0.0-0.4) % Neut % (Auto) (45-73) % Lymph % (Auto) (20-40) % [place] % (Auto) (2-11) % Eos % (Auto) (0-4) % Baso % (Auto) (0-2) % Lymph # (Auto) (1.2-4.9) X10*3/uL [place] # (Auto) (0.1-1.2) X10*3/uL Eos # (Auto) (0.0-0.4) X10*3/uL Baso # (Auto) (0.0-0.2) X10*3/uL Abs Immat Gran (auto) (0.00-0.03) X10*3/uL Absolute Neuts (auto) (2.0-8.3) x10*3/uL Absolute Nucleated RBC (0.0-0.012) X10*3/uL Nucleated RBC % (auto) (0.0-0.2) /100WBC PT (10.9-12.4) SEC INR (0.9-1.1) VBG pH 7.32 (7.32-7.43) VBG pCO2 39 mmHg VBG pO2 104 mmHg VBG HCO3 20 L (22-26) mmol/L VBG O2 Saturation 98.0 % VBG Base Excess -4.9 mmol/L Sodium (135-145) mmol/L Potassium (3.3-5.1) mmol/L Chloride (96-108) mmol/L Carbon Dioxide (22-29) mmol/L Anion Gap (12-20) BUN (9-16) mg/dL Creatinine (0.5-1.4) mg/dL Estim Creat Clear Calc Estimated GFR POC Glucose 318 H (60-115) mg/dL Random Glucose (60-115) mg/dL Lactic Acid (0.5-2.0) mmol/L Lactic Acid F/U @ 2Hr 1.3 (0.5-2.0) mmol/L Calcium (8.4-10.2) mg/dL Phosphorus (2.7-4.5) mg/dL Magnesium (1.6-2.6) mg/dL Total Bilirubin (0.0-1.0) mg/dL Direct Bilirubin (0.0-0.5) mg/dL AST (5-31) U/L ALT (0-31) U/L Alkaline Phosphatase (39-117) U/L Troponin I High Sens (<3.5-17.0) ng/L B-Natriuretic Peptide (<100) pg/mL Total Protein (6.5-8.0) g/dL Albumin (3.5-5.0) g/dL Influenza Type A (PCR) (Negative) Influenza Type B (PCR) (Negative) RSV RNA Qual (PCR) (Negative) SARS-CoV-2 RNA (RT-PCR) (Negative) Independent Interpretation I performed an independent interpretation of an: EKG Interpretation: EKG at 13:29 shows normal sinus rhythm at 75 beats per minute. It is a low voltage EKG. Critical Care Time Critical Care Time Critical Care Time: Yes Total Critical Care Time: 35 Attestation: The patient was critically ill with a high probability of imminent or life- threatening deterioration. ?I spent greater than 30 minutes of discontinuous time evaluating the patient, delivering critical care at the bedside, discussing evaluating data with consultants. ?Critical care time does not include time spent performing separately billable procedures or teaching. ?Time spent performing critical care with 35 minutes. Discharge Plan Discharge Clinical Impression: Acute respiratory failure, Pulmonary edema, Chronic renal failure, Hyperkalemia Patient Disposition: Admitted As Inpatient
[2024-05-29 11:22] LABS: Lactic Acid 2.6 mmol/L (0.5-2.0)
[2024-05-29 11:22] LABS: B Type Natriuretic Peptide 4686 pg/mL (<100)
[2024-05-29 11:27] LABS: Alanine Aminotransferase 18 U/L (0-31); Albumin Level 4.4 g/dL (3.5-5.0); Anion Gap 26 (12-20); Aspartate Amino Transferase 29 U/L (5-31); Bilirubin Direct 0.1 mg/dL (0.0-0.5); Bilirubin Total 0.3 mg/dL (0.0-1.0); Blood Urea Nitrogen 74 mg/dL (9-16); Calcium 10.3 mg/dL (8.4-10.2); Carbon Dioxide 20 mmol/L (22-29); Chloride 85 mmol/L (96-108); Glucose Random 231 mg/dL (60-115); Sodium 124 mmol/L (135-145)
[2024-05-29 11:30] LABS: Creatinine Clr Calc Pharmacy 4.1; Estimated Glomerular Filt Rate 3; Magnesium 3.5 mg/dL (1.6-2.6); Potassium 6.6 mmol/L (3.3-5.1); Troponin-I High Sensitivity 52.7 ng/L (<3.5-17.0)
[2024-05-29] MEDS: Calcium Gluconate/NaCl,Iso-Osm 2 GM/100 ML PLAST..BAG IV (11:45)
[2024-05-29] MEDS: Albuterol Sulfate (0.083%) 2.5 MG/3 ML VIAL.NEB 10 MG INHALE (12:04)
[2024-05-29] MEDS: Insulin Regular, Human 100 UNIT/ML 10 ML VIAL 10 UNIT IVPUSH (12:11)
[2024-05-29] MEDS: Dextrose 50 % 25 GM/50 ML SYRINGE IVPUSH (12:13)
[2024-05-29 12:17] LABS: Influenza A PCR NEGATIVE (Negative); Influenza B PCR NEGATIVE (Negative); Resp Syncy Virus RNA Qual PCR NEGATIVE (Negative); SARS COV2 PCR INHOUSE NEGATIVE (Negative)
[2024-05-29 12:26] LABS: Alkaline Phosphatase 129 U/L (39-117)
[2024-05-29 12:44] LABS: Glucose, Whole Blood 318 mg/dL (60-115)
[2024-05-29 13:00] LABS: Reflex Lactate? Lactic Acid Added
[2024-05-29 13:58] LABS: ~Lactic Acid-LAB USE ONLY 1.3 mmol/L (0.5-2.0)
[2024-05-29] MEDS: Heparin Sodium,Porcine 5,000 UNIT/ML VIAL 5000 UNIT SUBCUT ×2 (14:07→22:11)
[2024-05-29] MEDS: Famotidine/PF 20 MG/2 ML VIAL IVPUSH ×2 (14:07→20:04)
[2024-05-29 14:20] LABS: Phosphorus 4.1 mg/dL (2.7-4.5)
--- NOTE | 2024-05-29 15:08 | PHA.MEDREC ---
Pharmacy Consult ? Medication Reconciliation Pharmacy has completed the medication reconciliation. Utilized claim history and discharge summary
--- NOTE | 2024-05-29 15:20 | PM.CCHP ---
History of Present Illness Date of Service: 05/29/24 Chief Complaint: Shortness of breaths 81-year-old 69-year-old lady with multiple comorbidities not limited to ESRD on maintenance hemodialysis M/W/F with poor compliance (3rd admission since April for hypertension, shortness of breath, hyperkalemia), history of hypotension, diabetes mellitus, COPD, pulmonary hypertension, hypertrophic cardiomyopathy, opioid dependence on buprenorphine, GERD, chronic back pain presented to the ED with altered sensorium and shortness of breath. Her labs were significant for hyperkalemia with potassium of 6.6, hypertension, pulmonary edema needing BiPAP support so MICU was consulted for admission for emergent dialysis. She was admitted here with similar complaints on 2024 and discharged home on 05/23/2024. After discharge she was admitted to [facility] for rectal prolapse surgery. She does not remember her last dialysis. . Review of Systems Review of Systems: Unable to obtain as patient is confused PMFSH Past Medical History Medical History Diabetes mellitus Hemorrhoids that prolapse with straining, but retract spontaneously Hemorrhoids with complication ESRD on dialysis Delirium Sepsis Tachycardia Leukocytosis Fever End stage chronic kidney disease Congestive heart failure with left ventricular dysfunction ESRD (end stage renal disease) Hypertension Pulmonary congestion COVID-19 virus infection Asthma with COPD with exacerbation COVID ESRD (end stage renal disease) Hypertrophic cardiomyopathy Acute exacerbation of chronic obstructive pulmonary disease (COPD) Heart failure with preserved ejection fraction Constipation End stage renal disease on dialysis Ascites Anasarca Ischemic colitis Acute GI bleeding Anemia Dialysis patient, noncompliant Anemia in chronic kidney disease Opioid withdrawal Essential hypertension Family History Family History Other Hypertension Surgical History Surgical History No pertinent past surgical history Social History Social History Household Members: Other Housing: Apartment Do you presently have visiting nurse or other home services: Yes Unable to assess alcohol history related to: Unknown Alcohol intake: former Comment: pt in dialysis at this time. Patient Tobacco Use Status: Current someday Tobacco user Tobacco use type: Cigarette Cigarette Packs Per Day: 2 Cigarettes Per Day: 40.0 Years Smoked: 50 +/- e-Cigarette/Vaping Use: Never Used Second Hand Smoke Exposure: No Substance Use Type: Marijuana Advance Directives: Yes Advance Directives on File: Yes Advance Directives Date on File: 04/19/23 Nutrition Risks: No Nutritional Risk service: No Current occupational status: disabled Meds Allergies Allergy/AdvReac Type Severity Reaction Status Date / Time No Known Allergies Allergy Verified 05/29/24 10:51 Active Medications: Current Medications Famotidine (Famotidine/Pf 20 Mg/2 Ml Vial) 20 mg IVPUSH BID [facility] Last Admin: 05/29/24 14:07 Dose: 20 mg Heparin Sodium (Porcine) (Heparin Sodium,Porcine 5,000 Unit/Ml Vial) 5,000 unit SUBCUT Q8H [facility] Last Admin: 05/29/24 14:07 Dose: 5,000 unit Home Medications ?Medication ?Instructions ?Recorded ?Confirmed ?Last Taken ?Type melatonin 5 mg tablet 5 mg PO BEDTIME PRN Sleep 04/15/21 05/29/24 Unknown History pantoprazole 40 mg tablet,delayed 40 mg PO DAILY@0630 04/15/21 05/29/24 10/15/23 History release aspirin 81 mg tablet,delayed 1 tab PO DAILY 10/11/21 05/29/24 10/15/23 History release albuterol sulfate 90 mcg/actuation 2 puff inhalation Q4H PRN wheezing 01/31/22 05/29/24 Unknown History aerosol inhaler (Ventolin HFA) ondansetron 4 mg disintegrating 4 mg PO BID PRN nausea and vomiting 03/09/22 05/29/24 Unknown History tablet albuterol sulfate 2.5 mg/3 mL 1 amp inhalation TID PRN Shortness 05/08/22 05/29/24 Unknown History (0.083 %) solution for nebulization Of Breath isosorbide dinitrate 30 mg tablet 30 mg PO TID 07/10/22 05/29/24 10/15/23 History calcium acetate(phosphat bind) 667 1,334 mg PO TIDWM 03/13/23 05/29/24 10/15/23 History mg capsule clonidine HCl 0.1 mg tablet 0.1 mg PO TID 03/13/23 05/29/24 10/15/23 History lactulose 10 gram/15 mL oral 20 g PO DAILY PRN constipation 03/13/23 05/29/24 10/15/23 History solution mirtazapine 15 mg tablet 15 mg PO BEDTIME 03/13/23 05/29/24 10/15/23 History acetaminophen 500 mg tablet 500 mg PO TID PRN Pain 10/16/23 05/29/24 Unknown History nicotine 14 mg/24 hr daily 1 patch topical DAILY 10/16/23 05/29/24 10/15/23 History transdermal patch carvedilol 25 mg tablet 25 mg PO BID 01/28/24 05/29/24 Unknown History trazodone 50 mg tablet 50 mg PO BEDTIME PRN Insomnia 01/28/24 05/29/24 Unknown History amlodipine 10 mg tablet 10 mg PO DAILY 04/19/24 05/29/24 Unknown History buprenorphine 12 mg-naloxone 3 mg 1 film sublingual DAILY 04/19/24 05/29/24 Unknown History sublingual film calcium acetate(phosphat bind) 667 667 mg PO DAILY PRN snack 04/19/24 05/29/24 Unknown History mg capsule glucose 4 gram chewable tablet 16 g PO Q15M PRN hypoglycemia 04/19/24 05/29/24 Unknown History hydrocortisone 2.5 % topical cream 1 appl [place] BID PRN pain 04/19/24 05/29/24 Unknown History with perineal applicator sodium zirconium cyclosilicate 10 10 g PO MOWEFR@0900 04/19/24 05/29/24 Unknown History gram oral powder packet (Lokelma) vitamin B comp no.3-folic acid 1 1 tab PO DAILY 04/19/24 05/29/24 Unknown History mg-vit C 60 mg-biotin 300 mcg tablet ([facility]) Physical Exam Vital Signs: Vital Signs: Last Vital Signs Temp 95 F L 05/29/24 11:10 Pulse 62 05/29/24 14:37 Resp 18 05/29/24 15:14 BP 145/69 H 05/29/24 14:37 Pulse Ox 99 05/29/24 14:37 O2 Del Method BiPAP 05/29/24 14:37 BMI result Body Mass Index 26.4 General: Patient isn't acute distress, ill appearing and tired appearing Nutritional Appearance: well nourished and overweight Eyes: appearance normal, both eyes and all related structures; Alignment and Position: alignment normal and position normal Neck: No lymphadenopathy, no thyromegaly Resp: bilateral air entry equal, occasional added sounds present, diaphoretic, dyspneic Cardio: Regular rate, regular rhythm; Heart sounds: S1 normal heart sound present and S2 normal heart sound present GI: soft, nontender, no guarding, no hepatosplenomegaly : bladder normal to inspection, bladder normal to palpation, no renal angle tenderness Skin: no rashes or lesions noted and elasticity normal Neuro: Confused, no focal deficits, moves all extremities Results Labs 05/29/24 10:51 05/29/24 10:51 Labs: Laboratory Results - last 24 hr 05/29/24 05/29/24 05/29/24 10:51 10:52 10:54 MCV 97.5 MCH 33.4 H MCHC 34.3 RDW 15.2 Plt Count 232 MPV 10.1 Immature Gran % (Auto) 0.6 H Neut % (Auto) 85.7 H Lymph % (Auto) 9.0 L [place] % (Auto) 4.4 Eos % (Auto) 0.2 Baso % (Auto) 0.1 Lymph # (Auto) 1.0 L [place] # (Auto) 0.5 Eos # (Auto) 0.0 Baso # (Auto) 0.0 Abs Immat Gran (auto) 0.06 H Absolute Neuts (auto) 9.1 H Absolute Nucleated RBC 0.000 Nucleated RBC % (auto) 0.0 PT 10.5 L INR 0.9 VBG pH VBG pCO2 VBG pO2 VBG HCO3 VBG O2 Saturation VBG Base Excess Anion Gap 26 H Estim Creat Clear Calc 4.1 Estimated GFR 3 POC Glucose Random Glucose 231 H Lactic Acid 2.6 H* Lactic Acid F/U @ 2Hr Calcium 10.3 H Phosphorus 4.1 Magnesium 3.5 H* Total Bilirubin 0.3 Direct Bilirubin 0.1 AST 29 ALT 18 Alkaline Phosphatase 129 H Troponin I High Sens 52.7 H* D B-Natriuretic Peptide 4686 H Total Protein 8.0 Albumin 4.4 Influenza Type A (PCR) NEGATIVE Influenza Type B (PCR) NEGATIVE RSV RNA Qual (PCR) NEGATIVE SARS-CoV-2 RNA (RT-PCR) NEGATIVE 05/29/24 05/29/24 05/29/24 11:02 12:31 13:27 MCV MCH MCHC RDW Plt Count MPV Immature Gran % (Auto) Neut % (Auto) Lymph % (Auto) [place] % (Auto) Eos % (Auto) Baso % (Auto) Lymph # (Auto) [place] # (Auto) Eos # (Auto) Baso # (Auto) Abs Immat Gran (auto) Absolute Neuts (auto) Absolute Nucleated RBC Nucleated RBC % (auto) PT INR VBG pH 7.32 VBG pCO2 39 VBG pO2 104 VBG HCO3 20 L VBG O2 Saturation 98.0 VBG Base Excess -4.9 Anion Gap Estim Creat Clear Calc Estimated GFR POC Glucose 318 H Random Glucose Lactic Acid Lactic Acid F/U @ 2Hr 1.3 Calcium Phosphorus Magnesium Total Bilirubin Direct Bilirubin AST ALT Alkaline Phosphatase Troponin I High Sens B-Natriuretic Peptide Total Protein Albumin Influenza Type A (PCR) Influenza Type B (PCR) RSV RNA Qual (PCR) SARS-CoV-2 RNA (RT-PCR) Imaging Radiologist's Impressions: Impressions Chest X-Ray 05/29/24 10:44 IMPRESSION: Prominent bilateral parahilar vascular markings suggestive congestion. Electronically signed by: Orlando Dozier MD 05/29/2024 11:33 AM [facility] Assessment and Plan (1) Essential hypertension: Status: Acute (2) Acute hyperkalemia: Status: Acute (3) Diabetes mellitus: Status: Acute (4) Chronic renal failure: Status: Acute (5) Pulmonary edema: Qualifiers: Chronicity: acute Qualified Code(s): J81.0 - Acute pulmonary edema Status: Acute (6) Acute respiratory failure: Status: Acute (7) Pulmonary edema: Status: Acute Plan Acute hypoxemic respiratory failure: Possibly secondary to pulmonary edema from hypertensive urgency versus volume overload from renal failure. Chest x-ray suggestive of bilateral lung infiltrates suggestive of pulmonary edema on NIPPV to assist with breathing, will try to wean post dialysis Acute hyperkalemia: Secondary to renal failure Potassium 6.6 this morning will treat with medical management, insulin/dextrose/albuterol/lasix and Lokelma until hemodialysis nephrology consulted Hypertensive urgency: will out her on nicardipine drip, restarting home medications On multiple medications including hydralazine, clonidine, carvedilol, amlodipine, isosorbide dinitrate at home, will restart End-stage renal disease: Renal replacement therapy as per Nephrology, has a PermCath. Type 2 diabetes mellitus: On diabetic diet and sliding scale insulin Prophylaxis: Heparin, pantoprazole
--- NOTE | 2024-05-29 15:33 | PC.NURSE ---
Patient alert and oriented x 3. tele: sinus rythym 60-70. Patient came in respiratory distress patient brought in by family. Per family patient is , , sunday dialysis via right chest permacath. temp before transport to ICU was 93.5 rectally at 1437 Marisa RN notified when got to ICU. Patients blood pressure improved when repiratory status improved. Patient denies any pain. Patient has 2 iv's right forearm 20g and left antecubital 22g. K-6.6 medicated to lower K level will need to be rechecked. Patient is in ICU now room-254.
[2024-05-29] MEDS: niCARdipine HCL 25 MG in 0.9 % Sodium Chloride 240 ML 50 MG IVCONT (15:40)
[2024-05-29] MEDS: Isosorbide Dinitrate 10 MG TABLET 30 MG PO ×2 (16:44→22:10)
[2024-05-29] MEDS: Calcium Acetate 667 MG CAPSULE 1334 MG PO (16:45)
[2024-05-29] MEDS: amLODIPine Besylate 10 MG TABLET PO (16:45)
[2024-05-29] MEDS: Aspirin Enteric Coated 81 MG TABLET.DR PO (16:45)
[2024-05-29] MEDS: Buprenorphine/Naloxone 12/3 mg FILM 1 FILM SUBLINGUAL (16:45)
[2024-05-29] MEDS: hydrALAZINE HCl 50 MG TABLET PO ×2 (16:45→22:10)
[2024-05-29] MEDS: cloNIDine HCL 0.1 MG TABLET PO ×2 (16:45→22:11)
[2024-05-29 18:49] LABS: Glucose, Whole Blood 121 mg/dL (60-115)
[2024-05-29] MEDS: Acetaminophen 325 MG TABLET 650 MG PO (19:57)
[2024-05-29] MEDS: Mirtazapine 15 MG TABLET PO (19:58)
--- NOTE | 2024-05-29 20:07 | PM.EVENT ---
Event Note Date of Service: 05/29/24 Event Note: ER physician called me re pt Chart reviewed ESRD Pul edema Missed HD Rx Resp failure on BIPAP K per [facility] Arranged emergency HD Vol removal as tolerated D/w ER attending/ HD nurse Time Spent With Patient Time: Total time managing care of this patient today ____ minutes.
[2024-05-29] MEDS: Ondansetron ODT 4 MG TAB.RAPDIS TRANSLINGU (20:26)
[2024-05-29] MEDS: carvediloL 25 MG TABLET PO (22:10)
[2024-05-29] MEDS: polyethylene glycoL 3350 17 GM POWD.PACK PO (22:25)
[2024-05-30] VITALS (9 sets, daily range): BP systolic 131–160; BP diastolic 58–77; PULSE 69–81; RESP 12–20; TEMP 36.6–37.1; O2SAT 93–97; BMI 29.4
--- NOTE | 2024-05-30 01:01 | PM.EVENT ---
Documented by User: Malena Angulo NP 05/30/24 01:21 Event Note Date of Service: 05/30/24 Event Note: Renal replacement complete; 3.2 L removed Pt is A & O, requesting food. No respiratory concerns s/p hemodialysis; Pt is on room air, O2 94%.? No adventitious sounds or accessory muscle use.? Home meds resumed. Stable for transfer to medical floor. Time Spent With Patient Time: Total time managing care of this patient today ____ minutes. Documented by User: Gonzalo Will MD 05/30/24 08:33 Event Note Date of Service: 05/30/24
[2024-05-30] MEDS: traMADoL HCL 50 MG TABLET 25 MG PO (03:28)
[2024-05-30 07:22] LABS: MANUAL DIFF FLAG NO
[2024-05-30 07:26] LABS: Basophils Percent Auto 0.1 % (0-2); Eosinophils Absolute Auto 0.1 X10*3/uL (0.0-0.4); Eosinophils Percent Auto 0.9 % (0-4); Hematocrit 30.6 % (37.0-47.0); Hemoglobin 10.3 g/dl (12.0-16.0); Imm Gran Abs Auto 0.05 X10*3/uL (0.00-0.03); Imm Gran Pct Auto 0.7 % (0.0-0.4); Lymphocytes Absolute Auto 0.9 X10*3/uL (1.2-4.9); Lymphocytes Percent Auto 11.5 % (20-40); Mean Corpuscular HGB Conc 33.7 g/dl (31.0-35.0); Mean Corpuscular Volume 98.1 fL (80.0-98.0); Monocytes Absolute Auto 0.8 X10*3/uL (0.1-1.2); Monocytes Percent Auto 10.9 % (2-11); Neutrophils Absolute Auto 5.6 x10*3/uL (2.0-8.3); Neutrophils Percent Auto 75.9 % (45-73); Platelet Count 194 X10*3/uL (160-400); Red Blood Count 3.12 X10*6/uL (4.20-5.50); Red Cell Distribution Width 15.2 % (11.0-16.0); White Blood Count 7.4 X10*3/uL (4.8-10.8)
[2024-05-30 08:01] LABS: Anion Gap 14 (12-20); Blood Urea Nitrogen 23 mg/dL (9-16); Carbon Dioxide 24 mmol/L (22-29); Chloride 98 mmol/L (96-108); Creatinine Clr Calc Pharmacy 7.8; Estimated Glomerular Filt Rate 7; Glucose Random 81 mg/dL (60-115); Magnesium 2.6 mg/dL (1.6-2.6); Potassium 4.4 mmol/L (3.3-5.1); Sodium 132 mmol/L (135-145)
[2024-05-30 09:05] LABS: Glucose, Whole Blood 233 mg/dL (60-115)
[2024-05-30] MEDS: amLODIPine Besylate 10 MG TABLET PO (09:19)
[2024-05-30] MEDS: cloNIDine HCL 0.1 MG TABLET PO ×3 (09:19→20:09)
[2024-05-30] MEDS: hydrALAZINE HCl 50 MG TABLET PO ×3 (09:19→20:09)
[2024-05-30] MEDS: Calcium Acetate 667 MG CAPSULE 1334 MG PO ×3 (09:19→17:38)
[2024-05-30] MEDS: Famotidine/PF 20 MG/2 ML VIAL IVPUSH (09:19)
[2024-05-30] MEDS: Aspirin Enteric Coated 81 MG TABLET.DR PO (09:20)
[2024-05-30] MEDS: Isosorbide Dinitrate 10 MG TABLET 30 MG PO ×3 (09:20→20:09)
[2024-05-30] MEDS: carvediloL 25 MG TABLET PO ×2 (09:20→20:10)
[2024-05-30] MEDS: Sodium Zirconium Cyclosilicate 10 GM POWD.PACK PO (09:20)
[2024-05-30] MEDS: Buprenorphine/Naloxone 12/3 mg FILM 1 FILM SUBLINGUAL (09:20)
[2024-05-30] MEDS: Ondansetron ODT 4 MG TAB.RAPDIS TRANSLINGU (09:32)
[2024-05-30] MEDS: Morphine Sulfate 2 MG/ML CARTRIDGE IVPUSH (09:50)
--- NOTE | 2024-05-30 11:51 | MHC.CM.PN ---
IMM 05/30/24, Pt is SSO, she lives alone and has a BACTERIOLOGY RESEARCH ASSISTANT, Chelly that is with her a lot, Chelly is also HCP. PCP confirmed: Dr. Vicente. Pt has [facility] from [facility], referral sent via care port. For DME, she uses a walker. Pt. goes to HD at [facility] in [facility], , . She said she will need BLS to transport home at DC. DCP: home, resume services. CM to follow for DC needs.
[2024-05-30 12:56] LABS: Lipase 437 U/L (8-78)
--- NOTE | 2024-05-30 13:45 | P.PNIM_ITS ---
Subjective Subjective Date of Service: 05/30/24 Interval History: Seen and examined this morning Follow-up for respiratory failure, downgraded from ICU overnight following dialysis History obtained with the assistance of a life science research assistant Patient reporting severe epigastric abdominal pain which began this morning. She has associated nausea Review of Systems Review of Systems: Yes all other systems are reviewed and are negative Constitutional Constitutional: Denies chills and Denies fever(s) Cardiovascular Cardiovascular: Denies chest pain Gastrointestinal Gastrointestinal: Reports abdominal pain, Reports nausea and Denies vomiting Physical Exam 2 Vital Signs: Vital Signs: Last Vital Signs Temp 98.1 F 05/30/24 11:21 Pulse 71 05/30/24 11:21 Resp 16 05/30/24 11:21 BP 140/62 H 05/30/24 11:21 Pulse Ox 93 05/30/24 11:21 O2 Del Method Room Air 05/30/24 11:21 FiO2 25 05/29/24 19:53 BMI result Body Mass Index 29.4 Const: General: alert, awake and Physically active Nutritional Appearance: obese Orientation/consciousness: patient oriented x3 Resp: Effort & Inspection: normal respiratory effort, able to speak in complete sentences, no respiratory distress and no use of accessory muscles Cardio: Rate: regular rate GI: Other: epigastric tenderness; no rebound Palpation (GI): Soft to palpation Neuro: General: patient oriented x3, moves all extremities and CN's II-XI intact bilaterally Objective Data Active Medications Acetaminophen (Acetaminophen 325 Mg Tablet) 975 mg PO TID PRN PRN Reason: Leg Cramp Albuterol Sulfate (Albuterol Sulfate 90 Mcg 8 Gm Inhaler) 2 puff INHALE Q4H PRN PRN Reason: wheezing Amlodipine Besylate (Amlodipine Besylate 10 Mg Tablet) 10 mg PO DAILY [facility]; Protocol Last Admin: 05/30/24 09:19 Dose: 10 mg Documented By: TREY Aspirin (Aspirin Enteric Coated 81 Mg Tablet.) 81 mg PO DAILY [facility] Last Admin: 05/30/24 09:20 Dose: 81 mg Documented By: TREY Buprenorphine/Naloxone (Buprenorphine/Naloxone 12/3 Mg Film) 1 film SUBLINGUAL DAILY [facility] Last Admin: 05/30/24 09:20 Dose: 1 film Documented By: TREY Calcium Acetate (Calcium Acetate 667 Mg Capsule) 1,334 mg PO TIDWM [facility] Last Admin: 05/30/24 11:55 Dose: 1,334 mg Documented By: TREY Carvedilol (Carvedilol 25 Mg Tablet) 25 mg PO BID [facility]; Protocol Last Admin: 05/30/24 09:20 Dose: 25 mg Documented By: TREY Clonidine HCl (Clonidine Hcl 0.1 Mg Tablet) 0.1 mg PO TID [facility]; Protocol Last Admin: 05/30/24 09:19 Dose: 0.1 mg Documented By: TREY Famotidine (Famotidine/Pf 20 Mg/2 Ml Vial) 20 mg IVPUSH BID [facility] Last Admin: 05/30/24 09:19 Dose: 20 mg Documented By: TREY Heparin Sodium (Porcine) (Heparin Sodium,Porcine 5,000 Unit/Ml Vial) 5,000 unit SUBCUT Q8H [facility] Last Admin: 05/30/24 06:00 Dose: Not Given Documented By: JANE Non-Admin Reason: Patient Asleep Hydralazine HCl (Hydralazine Hcl 50 Mg Tablet) 50 mg PO TID [facility]; Protocol Last Admin: 05/30/24 09:19 Dose: 50 mg Documented By: TREY Isosorbide Dinitrate (Isosorbide Dinitrate 10 Mg Tablet) 30 mg PO TID [facility]; Protocol Last Admin: 05/30/24 09:20 Dose: 30 mg Documented By: TREY Mirtazapine (Mirtazapine 15 Mg Tablet) 15 mg PO BEDTIME [facility] Last Admin: 05/29/24 19:58 Dose: 15 mg Documented By: ALE Ondansetron HCl (Ondansetron Hcl 4 Mg/2 Ml Vial) 4 mg IVPUSH Q8H PRN PRN Reason: Nausea and Vomiting Sodium Zirconium Cyclosilicate (Sodium Zirconium Cyclosilicate 10 Gm Powd.Pack) 10 gm PO MOWEFR@0900 [facility] Last Admin: 05/30/24 09:20 Dose: 10 gm Documented By: TREY Trazodone HCl (Trazodone Hcl 50 Mg Tablet) 50 mg PO BEDTIME PRN PRN Reason: Insomnia Labs 05/30/24 07:03 05/30/24 07:03 Labs: Laboratory Results - last 24 hr 05/29/24 05/29/24 05/29/24 10:45 10:51 13:27 MCV MCH MCHC RDW Plt Count MPV Immature Gran % (Auto) Neut % (Auto) Lymph % (Auto) [place] % (Auto) Eos % (Auto) Baso % (Auto) Lymph # (Auto) [place] # (Auto) Eos # (Auto) Baso # (Auto) Abs Immat Gran (auto) Absolute Neuts (auto) Absolute Nucleated RBC Nucleated RBC % (auto) Anion Gap Estim Creat Clear Calc Estimated GFR POC Glucose 233 H Random Glucose Lactic Acid F/U @ 2Hr 1.3 Calcium Phosphorus 4.1 Magnesium Lipase 05/29/24 05/30/24 18:46 07:03 MCV 98.1 H MCH 33.0 MCHC 33.7 RDW 15.2 Plt Count 194 MPV 10.0 Immature Gran % (Auto) 0.7 H Neut % (Auto) 75.9 H Lymph % (Auto) 11.5 L [place] % (Auto) 10.9 Eos % (Auto) 0.9 Baso % (Auto) 0.1 Lymph # (Auto) 0.9 L [place] # (Auto) 0.8 Eos # (Auto) 0.1 Baso # (Auto) 0.0 Abs Immat Gran (auto) 0.05 H Absolute Neuts (auto) 5.6 Absolute Nucleated RBC 0.000 Nucleated RBC % (auto) 0.0 Anion Gap 14 Estim Creat Clear Calc 7.8 Estimated GFR 7 POC Glucose 121 H Random Glucose 81 Lactic Acid F/U @ 2Hr Calcium 9.0 D Phosphorus Magnesium 2.6 Lipase 437 H Assessment and Plan (1) Pulmonary edema: Status: Acute (2) Acute pancreatitis: Status: Acute Plan This is a 69-year-old female with h/o ESRD on maintenance hemodialysis M/W/F with poor compliance (3rd admission since April for hypertension, shortness of breath, hyperkalemia), history of hypotension, diabetes mellitus, COPD, pulmonary hypertension, hypertrophic cardiomyopathy, opioid dependence on buprenorphine, GERD, chronic back pain presented to the ED with altered sensorium and shortness of breath. Her labs were significant for hyperkalemia with potassium of 6.6, hypertension, pulmonary edema needing BiPAP support so MICU was consulted for admission for emergent dialysis. Following dialysis she was weaned off of supplemental oxygen and downgraded to the medical floor. On arrival to the medical floor began having abdominal pain found to have pancreatitis Acute pancreatitis does not drink etoh, no gallstones on imaging GI consult NPO, IVF, pain control ADAT ESRD on HD MWF s/p emergent HD 05/29. non compliant with HD, previous admissions requiring emergent dialysis Nephrology following Continue hemodialysis as scheduled Continue baseline [facility] Acute respiratory failure with hypoxia Due to underlying ESRD and missing dialysis. Resolved HTN Continue baseline Coreg, clonidine, hydralazine, Norvasc DM not on baseline meds follow POCs while npo; with sliding scale as needed gerd IV PPI transitioned back to p.o. when tolerating oral intake Opiate dependence Continue Suboxone dvt ppx - heparin Patient requires ongoing inpatient stay for management of acute pancreatitis of uncertain etiology and specialist evaluation, inability to tolerate p.o. Quality Stroke Does the patient have a stroke diagnosis?: No VTE Prior VTE?: No VTE Risk Level:: Medical - low VTE Device Contraindication: N/A - Device Ordered VTE Drug Contraindication: N/A - Med Ordered
[2024-05-30] MEDS: Heparin Sodium,Porcine 5,000 UNIT/ML VIAL 5000 UNIT SUBCUT ×2 (13:54→20:10)
[2024-05-30] MEDS: Acetaminophen 325 MG TABLET 975 MG PO (13:56)
[2024-05-30 14:32] LABS: Glucose, Whole Blood 208 mg/dL (60-115)
[2024-05-30] MEDS: Dextrose 5 % and 0.9 % NaCl 1,000 ML 75 ML IVCONT (15:21)
[2024-05-30 16:22] LABS: Glucose, Whole Blood 145 mg/dL (60-115)
[2024-05-30] MEDS: Docusate Sodium 100 MG CAPSULE PO (20:10)
[2024-05-30] MEDS: Mirtazapine 15 MG TABLET PO (20:10)
[2024-05-30 20:45] LABS: Glucose, Whole Blood 107 mg/dL (60-115)
[2024-05-31] VITALS (8 sets, daily range): BP systolic 136–180; BP diastolic 70–89; PULSE 64–77; RESP 16–20; TEMP 36.3–36.9; O2SAT 93–100; BMI 29.2
[2024-05-31] MEDS: Dextrose 5 % and 0.9 % NaCl 1,000 ML 75 ML IVCONT ×2 (05:04→18:08)
[2024-05-31] MEDS: Albuterol Sulfate (0.083%) 2.5 MG/3 ML VIAL.NEB INHALE (06:03)
[2024-05-31 06:15] LABS: Hematocrit 32.9 % (37.0-47.0); Hemoglobin 10.9 g/dl (12.0-16.0); Mean Corpuscular HGB Conc 33.1 g/dl (31.0-35.0); Mean Corpuscular Hemoglobin 33.9 pg (27.0-33.0); Mean Corpuscular Volume 102.2 fL (80.0-98.0); Platelet Count 193 X10*3/uL (160-400); Red Blood Count 3.22 X10*6/uL (4.20-5.50); Red Cell Distribution Width 15.1 % (11.0-16.0); White Blood Count 6.9 X10*3/uL (4.8-10.8)
[2024-05-31 06:33] LABS: Anion Gap 16 (12-20); Blood Urea Nitrogen 36 mg/dL (9-16); Carbon Dioxide 23 mmol/L (22-29); Chloride 95 mmol/L (96-108); Creatinine Clr Calc Pharmacy 6.2; Estimated Glomerular Filt Rate 5; Glucose Random 107 mg/dL (60-115); Potassium 4.7 mmol/L (3.3-5.1); Sodium 129 mmol/L (135-145)
[2024-05-31] MEDS: Pantoprazole Sodium 40 MG/10 ML VIAL IVPUSH (06:59)
[2024-05-31] MEDS: Heparin Sodium,Porcine 5,000 UNIT/ML VIAL 5000 UNIT SUBCUT ×3 (07:01→21:49)
[2024-05-31 08:06] LABS: Glucose, Whole Blood 111 mg/dL (60-115)
[2024-05-31] MEDS: Aspirin Enteric Coated 81 MG TABLET.DR PO (08:38)
[2024-05-31] MEDS: hydrALAZINE HCl 50 MG TABLET PO ×3 (08:38→21:48)
[2024-05-31] MEDS: carvediloL 25 MG TABLET PO ×2 (08:39→21:49)
[2024-05-31] MEDS: Calcium Acetate 667 MG CAPSULE 1334 MG PO ×3 (08:39→16:53)
[2024-05-31] MEDS: cloNIDine HCL 0.1 MG TABLET PO ×3 (08:39→21:48)
[2024-05-31] MEDS: amLODIPine Besylate 10 MG TABLET PO (08:39)
[2024-05-31] MEDS: Isosorbide Dinitrate 10 MG TABLET 30 MG PO ×3 (08:39→21:48)
[2024-05-31] MEDS: Buprenorphine/Naloxone 12/3 mg FILM 1 FILM SUBLINGUAL (08:40)
--- NOTE | 2024-05-31 12:03 | P.CNGI_ITS ---
History of Present Illness Data of Consult Service Date: 05/31/24 Requesting physician: Hattie Govea Primary Care Provider: Sammy Vicente MD [facility] Reason for consult: Acute pancreatitis 69 YF with multiple comorbidities including ESRD on maintenance hemodialysis M/W/F with poor compliance (3rd admission since April for hypertension, shortness of breath, hyperkalemia), history of hypotension, diabetes mellitus, COPD, pulmonary hypertension, hypertrophic cardiomyopathy, opioid dependence on buprenorphine, GERD, chronic back pain admitted to [facility] on 05/29/24 with altered sensorium and shortness of breath. Labs showed hyperkalemia with potassium of 6.6, Pt was admitted to MICU due to hypertension, pulmonary edema needing BiPAP support and underwent emergent dialysis. She was admitted here with similar complaints on 2024 and discharged home on 05/23/2024. After discharge she was admitted to [facility] for rectal prolapse surgery. She does not remember her last dialysis. Pt was transfererd to the floor on 05/30/24. GI consulted since pt complained of severe upper abd pain and had an elevated Lipase of 437. Pt denies abdominal pain at present - feels hungry and wants to eat. 05/30/[address] SCAN SHOWED: Concerning acute pancreatitis in the correct clinical settings of iterative diagnosis of peptic ulcer disease. Hepatomegaly and questionable hepatocellular disease. 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 Medical renal disease without hydronephrosis. 4 cm cystic lesion, upper pole left kidney. PMFSH Past Medical History Medical History Diabetes mellitus Hemorrhoids that prolapse with straining, but retract spontaneously Hemorrhoids with complication ESRD on dialysis Delirium Sepsis Tachycardia Leukocytosis Fever End stage chronic kidney disease Congestive heart failure with left ventricular dysfunction ESRD (end stage renal disease) Hypertension Pulmonary congestion COVID-19 virus infection Asthma with COPD with exacerbation COVID ESRD (end stage renal disease) Hypertrophic cardiomyopathy Acute exacerbation of chronic obstructive pulmonary disease (COPD) Heart failure with preserved ejection fraction Constipation End stage renal disease on dialysis Ascites Anasarca Ischemic colitis Acute GI bleeding Anemia Dialysis patient, noncompliant Anemia in chronic kidney disease Opioid withdrawal Essential hypertension Family History Family History Other Hypertension Surgical History Surgical History No pertinent past surgical history Social History Social History Household Members: Family Housing: Apartment Do you presently have visiting nurse or other home services: Yes (vna) Unable to assess alcohol history related to: Unknown Alcohol intake: former Comment: pt in dialysis at this time. Patient Tobacco Use Status: Current everyday Tobacco user Tobacco use type: Cigarette Cigarette Packs Per Day: 2 Cigarettes Per Day: 1 Years Smoked: 50 +/- e-Cigarette/Vaping Use: Never Used Second Hand Smoke Exposure: No Substance Use Type: Marijuana Advance Directives Date on File: 04/19/23 service: No Current occupational status: disabled Meds Allergies Allergy/AdvReac Type Severity Reaction Status Date / Time No Known Allergies Allergy Verified 05/29/24 10:51 Active Medications: Current Medications Acetaminophen (Acetaminophen 325 Mg Tablet) 975 mg PO TID PRN PRN Reason: Leg Cramp Last Admin: 05/30/24 13:56 Dose: 975 mg Albuterol Sulfate (Albuterol Sulfate 90 Mcg 8 Gm Inhaler) 2 puff INHALE Q4H PRN PRN Reason: wheezing Albuterol Sulfate (Albuterol Sulfate (0.083%) 2.5 Mg/3 Ml Vial.Neb) 2.5 mg INHALE Q4H PRN PRN Reason: Shortness of Breath/Wheezing Last Admin: 05/31/24 06:03 Dose: 2.5 mg Amlodipine Besylate (Amlodipine Besylate 10 Mg Tablet) 10 mg PO DAILY [facility]; Protocol Last Admin: 05/31/24 08:39 Dose: 10 mg Aspirin (Aspirin Enteric Coated 81 Mg Tablet.) 81 mg PO DAILY [facility] Last Admin: 05/31/24 08:38 Dose: 81 mg Buprenorphine/Naloxone (Buprenorphine/Naloxone 12/3 Mg Film) 1 film SUBLINGUAL DAILY [facility] Last Admin: 05/31/24 08:40 Dose: 1 film Calcium Acetate (Calcium Acetate 667 Mg Capsule) 1,334 mg PO TIDWM PHAN Last Admin: 05/31/24 08:39 Dose: 1,334 mg Carvedilol (Carvedilol 25 Mg Tablet) 25 mg PO BID [facility]; Protocol Last Admin: 05/31/24 08:39 Dose: 25 mg Clonidine HCl (Clonidine Hcl 0.1 Mg Tablet) 0.1 mg PO TID [facility]; Protocol Last Admin: 05/31/24 08:39 Dose: 0.1 mg Docusate Sodium (Docusate Sodium 100 Mg Capsule) 100 mg PO BEDTIME [facility] Last Admin: 05/30/24 20:10 Dose: 100 mg Glucose (Glucose Gel 15 Gm Gel..Gram.) 15 gm PO Q15M PRN; Protocol PRN Reason: per Hypoglycemia Standing Ord. Heparin Sodium (Porcine) (Heparin Sodium,Porcine 5,000 Unit/Ml Vial) 5,000 unit SUBCUT Q8H [facility] Last Admin: 05/31/24 07:01 Dose: 5,000 unit Hydralazine HCl (Hydralazine Hcl 50 Mg Tablet) 50 mg PO TID [facility]; Protocol Last Admin: 05/31/24 08:38 Dose: 50 mg Dextrose (D10) 250 mls @ 750 mls/hr IV Q15M PRN; Protocol PRN Reason: per Hypoglycemia Standing Ord. Dextrose/Sodium Chloride (D5ns) 1,000 mls @ 75 mls/hr IVCONT .[id number] [facility] Last Admin: 05/31/24 05:04 Dose: 75 mls/hr Isosorbide Dinitrate (Isosorbide Dinitrate 10 Mg Tablet) 30 mg PO TID [facility]; Protocol Last Admin: 05/31/24 08:39 Dose: 30 mg Mirtazapine (Mirtazapine 15 Mg Tablet) 15 mg PO BEDTIME [facility] Last Admin: 05/30/24 20:10 Dose: 15 mg Morphine Sulfate (Morphine Sulfate 2 Mg/Ml Cartridge) 2 mg IVPUSH Q4H PRN; Protocol PRN Reason: Pain, Moderate(Pain Scale 4-6) Ondansetron HCl (Ondansetron Hcl 4 Mg/2 Ml Vial) 4 mg IVPUSH Q8H PRN PRN Reason: Nausea and Vomiting Pantoprazole Sodium (Pantoprazole Sodium 40 Mg/10 Ml Vial) 40 mg IVPUSH DAILY@0630 [facility] Last Admin: 05/31/24 06:59 Dose: 40 mg Sodium Zirconium Cyclosilicate (Sodium Zirconium Cyclosilicate 10 Gm Powd.Pack) 10 gm PO MOWEFR@0900 [facility] Last Admin: 05/30/24 09:20 Dose: 10 gm Trazodone HCl (Trazodone Hcl 50 Mg Tablet) 50 mg PO BEDTIME PRN PRN Reason: Insomnia Home Medications ?Medication ?Instructions ?Recorded ?Confirmed ?Last Taken ?Type melatonin 5 mg tablet 5 mg PO BEDTIME PRN Sleep 04/15/21 05/29/24 Unknown History pantoprazole 40 mg tablet,delayed 40 mg PO DAILY@0630 04/15/21 05/29/24 10/15/23 History release aspirin 81 mg tablet,delayed 1 tab PO DAILY 10/11/21 05/29/24 10/15/23 History release albuterol sulfate 90 mcg/actuation 2 puff inhalation Q4H PRN wheezing 01/31/22 05/29/24 Unknown History aerosol inhaler (Ventolin HFA) ondansetron 4 mg disintegrating 4 mg PO BID PRN nausea and vomiting 03/09/22 05/29/24 Unknown History tablet albuterol sulfate 2.5 mg/3 mL 1 amp inhalation TID PRN Shortness 05/08/22 05/29/24 Unknown History (0.083 %) solution for nebulization Of Breath isosorbide dinitrate 30 mg tablet 30 mg PO TID 07/10/22 05/29/24 10/15/23 History calcium acetate(phosphat bind) 667 1,334 mg PO TIDWM 03/13/23 05/29/24 10/15/23 History mg capsule clonidine HCl 0.1 mg tablet 0.1 mg PO TID 03/13/23 05/29/24 10/15/23 History lactulose 10 gram/15 mL oral 20 g PO DAILY PRN constipation 03/13/23 05/29/24 10/15/23 History solution mirtazapine 15 mg tablet 15 mg PO BEDTIME 03/13/23 05/29/24 10/15/23 History acetaminophen 500 mg tablet 500 mg PO TID PRN Pain 10/16/23 05/29/24 Unknown History nicotine 14 mg/24 hr daily 1 patch topical DAILY 10/16/23 05/29/24 10/15/23 History transdermal patch carvedilol 25 mg tablet 25 mg PO BID 01/28/24 05/29/24 Unknown History trazodone 50 mg tablet 50 mg PO BEDTIME PRN Insomnia 01/28/24 05/29/24 Unknown History amlodipine 10 mg tablet 10 mg PO DAILY 04/19/24 05/29/24 Unknown History buprenorphine 12 mg-naloxone 3 mg 1 film sublingual DAILY 04/19/24 05/29/24 Unknown History sublingual film calcium acetate(phosphat bind) 667 667 mg PO DAILY PRN snack 04/19/24 05/29/24 Unknown History mg capsule glucose 4 gram chewable tablet 16 g PO Q15M PRN hypoglycemia 04/19/24 05/29/24 Unknown History hydrocortisone 2.5 % topical cream 1 appl [place] BID PRN pain 04/19/24 05/29/24 Unknown History with perineal applicator sodium zirconium cyclosilicate 10 10 g PO MOWEFR@0900 04/19/24 05/29/24 Unknown History gram oral powder packet (Lokelma) vitamin B comp no.3-folic acid 1 1 tab PO DAILY 04/19/24 05/29/24 Unknown History mg-vit C 60 mg-biotin 300 mcg tablet ([facility]) Physical Exam 2 Vital Signs: Vital Signs: Last Vital Signs Temp 98.1 F 05/31/24 07:29 Pulse 74 05/31/24 07:29 Resp 16 05/31/24 07:29 BP 148/82 H 05/31/24 07:29 Pulse Ox 95 05/31/24 07:29 O2 Del Method Room Air 05/31/24 07:29 FiO2 25 05/29/24 19:53 BMI result Body Mass Index 29.2 Results Labs 05/31/24 05:44 05/31/24 05:44 Labs: Short CBC 05/31/24 Range/Units 05:44 WBC 6.9 (4.8-10.8) X10*3/uL Hgb 10.9 L (12.0-16.0) g/dl Hct 32.9 L (37.0-47.0) % Plt Count 193 (160-400) X10*3/uL BMP 05/31/24 05:44 Sodium 129 L Potassium 4.7 Chloride 95 L Carbon Dioxide 23 BUN 36 H Creatinine 7.74 H* Calcium 9.0 Assessment and Plan (1) Acute pancreatitis: Status: Acute Plan 69 YF with multiple comorbidities including ESRD on maintenance hemodialysis M/W/F with poor compliance (3rd admission since April for hypertension, shortness of breath, hyperkalemia), history of hypotension, diabetes mellitus, COPD, pulmonary hypertension, hypertrophic cardiomyopathy, opioid dependence on buprenorphine, GERD, chronic back pain admitted to [facility] on 05/29/24 with altered sensorium and shortness of breath. Labs showed hyperkalemia with potassium of 6.6, Pt was admitted to MICU due to hypertension, pulmonary edema needing BiPAP support and underwent emergent dialysis. GI consulted since pt complained of severe upper abd pain and had an elevated Lipase of 437. Pt denies abdominal pain at present - feels hungry and wants to eat. Etiology of pancreatitis is unclear - ? hypertriglyceridemia, IgG4 related disease, related to medications or [id number] gallstones not visible on CT scan (no recent abd US in [facility]) RECOMMENDATIONS: 1. Repeat lipase - can advance diet if lipase is normal 2. Triglyceride level and Ig G4 added to am labs 3. Abdominal US to look for [id number] gallstones Procedures Date of Service Date of Service: 05/31/24
[2024-05-31] MEDS: Acetaminophen 325 MG TABLET 975 MG PO ×2 (12:27→21:56)
[2024-05-31 14:22] LABS: Glucose, Whole Blood 98 mg/dL (60-115)
[2024-05-31 15:28] LABS: Glucose, Whole Blood 164 mg/dL (60-115)
[2024-05-31] MEDS: Lidocaine 4 % Patch ADH..PATCH 1 PATCH TRANSDERMA (15:32)
[2024-05-31] MEDS: polyethylene glycoL 3350 17 GM POWD.PACK PO (15:33)
--- NOTE | 2024-05-31 16:08 | HO.PM.IMPN ---
Subjective Subjective Date of Service: 05/31/24 Interval History: seen and examined this morning follow up for pancreatitis still with epigastric abdominal pain, but starting to improve Review of Systems Review of Systems: Yes all other systems are reviewed and are negative Constitutional Constitutional: Denies chills and Denies fever(s) Cardiovascular Cardiovascular: Denies chest pain, Denies palpitations and Denies dyspnea Respiratory Respiratory: Denies cough and Denies dyspnea Endocrine Endocrine: Denies palpitations Physical Exam Vital Signs: Vital Signs: Last Vital Signs Temp 97.3 F 05/31/24 15:12 Pulse 69 05/31/24 15:12 Resp 18 05/31/24 15:12 BP 136/71 05/31/24 15:12 Pulse Ox 99 05/31/24 15:12 O2 Del Method Room Air 05/31/24 15:12 FiO2 05/29/24 19:53 BMI result Body Mass Index 29.2 Const: General: alert, awake and Physically active Nutritional Appearance: obese Orientation/consciousness: patient oriented x3 Resp: Effort & Inspection: normal respiratory effort, able to speak in complete sentences, no respiratory distress and no use of accessory muscles Cardio: Rate: regular rate GI: Other: epigastric tenderness; no rebound Palpation (GI): Soft to palpation Neuro: General: patient oriented x3, moves all extremities and CN's II-XI intact bilaterally Objective Data Active Medications Acetaminophen (Acetaminophen 325 Mg Tablet) 975 mg PO TID PRN PRN Reason: Leg Cramp Last Admin: 05/31/24 12:27 Dose: 975 mg Documented By: JORGE Albuterol Sulfate (Albuterol Sulfate 90 Mcg 8 Gm Inhaler) 2 puff INHALE Q4H PRN PRN Reason: wheezing Albuterol Sulfate (Albuterol Sulfate (0.083%) 2.5 Mg/3 Ml Vial.Neb) 2.5 mg INHALE Q4H PRN PRN Reason: Shortness of Breath/Wheezing Last Admin: 05/31/24 06:03 Dose: 2.5 mg Documented By: LIA Amlodipine Besylate (Amlodipine Besylate 10 Mg Tablet) 10 mg PO DAILY [facility]; Protocol Last Admin: 05/31/24 08:39 Dose: 10 mg Documented By: JORGE Aspirin (Aspirin Enteric Coated 81 Mg Tablet.) 81 mg PO DAILY [facility] Last Admin: 05/31/24 08:38 Dose: 81 mg Documented By: JORGE Buprenorphine/Naloxone (Buprenorphine/Naloxone 12/3 Mg Film) 1 film SUBLINGUAL DAILY [facility] Last Admin: 05/31/24 08:40 Dose: 1 film Documented By: JORGE Calcium Acetate (Calcium Acetate 667 Mg Capsule) 1,334 mg PO TIDWM [facility] Last Admin: 05/31/24 12:28 Dose: 1,334 mg Documented By: JORGE Carvedilol (Carvedilol 25 Mg Tablet) 25 mg PO BID [facility]; Protocol Last Admin: 05/31/24 08:39 Dose: 25 mg Documented By: JORGE Clonidine HCl (Clonidine Hcl 0.1 Mg Tablet) 0.1 mg PO TID [facility]; Protocol Last Admin: 05/31/24 14:25 Dose: 0.1 mg Documented By: JORGE Docusate Sodium (Docusate Sodium 100 Mg Capsule) 100 mg PO BEDTIME [facility] Last Admin: 05/30/24 20:10 Dose: 100 mg Documented By: VALENCIA Glucose (Glucose Gel 15 Gm Gel..Gram.) 15 gm PO Q15M PRN; Protocol PRN Reason: per Hypoglycemia Standing Ord. Heparin Sodium (Porcine) (Heparin Sodium,Porcine 5,000 Unit/Ml Vial) 5,000 unit SUBCUT Q8H [facility] Last Admin: 05/31/24 14:27 Dose: 5,000 unit Documented By: JORGE Hydralazine HCl (Hydralazine Hcl 50 Mg Tablet) 50 mg PO TID [facility]; Protocol Last Admin: 05/31/24 14:25 Dose: 50 mg Documented By: JORGE Dextrose (D10) 250 mls @ 750 mls/hr IV Q15M PRN; Protocol PRN Reason: per Hypoglycemia Standing Ord. Dextrose/Sodium Chloride (D5ns) 1,000 mls @ 75 mls/hr IVCONT .[id number] [facility] Last Admin: 05/31/24 05:04 Dose: 75 mls/hr Documented By: WENDY Isosorbide Dinitrate (Isosorbide Dinitrate 10 Mg Tablet) 30 mg PO TID [facility]; Protocol Last Admin: 05/31/24 14:24 Dose: 20 mg Documented By: JORGE Lidocaine (Lidocaine 4 % Patch Adh..Patch) 1 patch TRANSDERMA DAILY [facility]; Protocol Last Admin: 05/31/24 15:32 Dose: 1 patch Documented By: JORGE Mirtazapine (Mirtazapine 15 Mg Tablet) 15 mg PO BEDTIME [facility] Last Admin: 05/30/24 20:10 Dose: 15 mg Documented By: VALENCIA Morphine Sulfate (Morphine Sulfate 2 Mg/Ml Cartridge) 2 mg IVPUSH Q4H PRN; Protocol PRN Reason: Pain, Moderate(Pain Scale 4-6) Ondansetron HCl (Ondansetron Hcl 4 Mg/2 Ml Vial) 4 mg IVPUSH Q8H PRN PRN Reason: Nausea and Vomiting Pantoprazole Sodium (Pantoprazole Sodium 40 Mg/10 Ml Vial) 40 mg IVPUSH DAILY@0630 [facility] Last Admin: 05/31/24 06:59 Dose: 40 mg Documented By: WENDY Polyethylene Glycol (Polyethylene Glycol 3350 17 Gm Powd.Pack) 17 gm PO DAILY [facility] Last Admin: 05/31/24 15:33 Dose: 17 gm Documented By: JORGE Sodium Zirconium Cyclosilicate (Sodium Zirconium Cyclosilicate 10 Gm Powd.Pack) 10 gm PO MOWEFR@0900 [facility] Last Admin: 05/30/24 09:20 Dose: 10 gm Documented By: TREY Trazodone HCl (Trazodone Hcl 50 Mg Tablet) 50 mg PO BEDTIME PRN PRN Reason: Insomnia Trolamine Salicylate (Trolamine Salicylate 10 % Cream 85 Gm Tube) 1 appl TOPICAL BID PRN; Protocol PRN Reason: muscle soreness Labs 05/31/24 05:44 05/31/24 05:44 Labs: Laboratory Results - last 24 hr 05/30/24 05/30/24 05/31/24 16:10 20:40 05:44 MCV 102.2 H MCH 33.9 H MCHC 33.1 RDW 15.1 Plt Count 193 MPV 10.0 Absolute Nucleated RBC 0.000 Nucleated RBC % (auto) 0.0 Anion Gap 16 Estim Creat Clear Calc 6.2 Estimated GFR 5 POC Glucose 145 H 107 Random Glucose 107 Calcium 9.0 05/31/24 05/31/24 05/31/24 07:33 14:17 15:23 MCV MCH MCHC RDW Plt Count MPV Absolute Nucleated RBC Nucleated RBC % (auto) Anion Gap Estim Creat Clear Calc Estimated GFR POC Glucose 111 98 164 H Random Glucose Calcium Assessment and Plan (1) Acute pancreatitis: Status: Acute (2) Chronic renal failure: Status: Acute Plan This is a 69-year-old female with h/o ESRD on maintenance hemodialysis M/W/F with poor compliance (3rd admission since April for hypertension, shortness of breath, hyperkalemia), history of hypotension, diabetes mellitus, COPD, pulmonary hypertension, hypertrophic cardiomyopathy, opioid dependence on buprenorphine, GERD, chronic back pain presented to the ED with altered sensorium and shortness of breath. Her labs were significant for hyperkalemia with potassium of 6.6, hypertension, pulmonary edema needing BiPAP support so MICU was consulted for admission for emergent dialysis. Following dialysis she was weaned off of supplemental oxygen and downgraded to the medical floor. On arrival to the medical floor began having abdominal pain found to have pancreatitis Acute pancreatitis does not drink etoh, no gallstones on imaging will check TG GI following, abdominal US ordered follow lipase clear liquids, IVF, pain control ESRD on HD MWF s/p emergent HD 05/29. non compliant with HD, previous admissions requiring emergent dialysis Nephrology following Continue hemodialysis as scheduled Continue baseline Lokelma constipation no bm for several days bowel regimen Acute respiratory failure with hypoxia Due to underlying ESRD and missing dialysis. Resolved HTN Continue baseline Coreg, clonidine, hydralazine, Norvasc DM not on baseline meds follow POCs while npo; cover with sliding scale as needed gerd IV PPI transitioned back to p.o. when tolerating oral intake Opiate dependence Continue Suboxone dvt ppx - heparin Patient requires ongoing inpatient stay for management of acute pancreatitis of uncertain etiology and specialist evaluation Quality Stroke Does the patient have a stroke diagnosis?: No VTE Prior VTE?: No VTE Risk Level:: Medical - low VTE Device Contraindication: N/A - Device Ordered VTE Drug Contraindication: N/A - Med Ordered
[2024-05-31 20:25] LABS: Glucose, Whole Blood 149 mg/dL (60-115)
[2024-05-31] MEDS: Docusate Sodium 100 MG CAPSULE PO (21:48)
[2024-05-31] MEDS: Mirtazapine 15 MG TABLET PO (21:54)
[2024-06-01] VITALS (7 sets, daily range): BP systolic 130–168; BP diastolic 62–94; PULSE 56–67; RESP 14–18; TEMP 36–36.8; O2SAT 94–98; BMI 29.7
[2024-06-01] MEDS: Dextrose 5 % and 0.9 % NaCl 1,000 ML 75 ML IVCONT (06:19)
[2024-06-01] MEDS: Heparin Sodium,Porcine 5,000 UNIT/ML VIAL 5000 UNIT SUBCUT ×3 (06:19→22:08)
[2024-06-01] MEDS: Pantoprazole Sodium 40 MG/10 ML VIAL IVPUSH (06:19)
[2024-06-01 07:25] LABS: Lipase 83 U/L (8-78); Triglycerides 118 mg/dL (<150)
[2024-06-01 08:29] LABS: Glucose, Whole Blood 130 mg/dL (60-115)
[2024-06-01] MEDS: hydrALAZINE HCl 50 MG TABLET PO ×3 (10:25→22:07)
[2024-06-01] MEDS: carvediloL 25 MG TABLET PO ×2 (10:26→22:07)
[2024-06-01] MEDS: Aspirin Enteric Coated 81 MG TABLET.DR PO (10:26)
[2024-06-01] MEDS: Isosorbide Dinitrate 10 MG TABLET 30 MG PO ×3 (10:26→22:07)
[2024-06-01] MEDS: Calcium Acetate 667 MG CAPSULE 1334 MG PO ×3 (10:26→18:37)
[2024-06-01] MEDS: Lidocaine 4 % Patch ADH..PATCH 1 PATCH TRANSDERMA (10:27)
[2024-06-01] MEDS: cloNIDine HCL 0.1 MG TABLET PO ×3 (10:27→22:07)
[2024-06-01] MEDS: Buprenorphine/Naloxone 12/3 mg FILM 1 FILM SUBLINGUAL (10:27)
[2024-06-01] MEDS: amLODIPine Besylate 10 MG TABLET PO (10:27)
[2024-06-01] MEDS: polyethylene glycoL 3350 17 GM POWD.PACK PO (10:29)
[2024-06-01 11:51] LABS: Glucose, Whole Blood 116 mg/dL (60-115)
--- NOTE | 2024-06-01 11:51 | P.PNIM_ITS ---
Subjective Subjective Date of Service: 06/01/24 Interval History: seen and examined this morning follow up for respiratory failure, pancreatitis, constipation abdominal pain improving no nausea had BM overnight Review of Systems Review of Systems: Yes all other systems are reviewed and are negative Constitutional Constitutional: Denies chills and Denies fever(s) Cardiovascular Cardiovascular: Denies chest pain Gastrointestinal Gastrointestinal: Reports abdominal pain and Denies nausea Physical Exam 2 Vital Signs: Vital Signs: Last Vital Signs Temp 96.8 F 06/01/24 11:36 Pulse 63 06/01/24 11:36 Resp 18 06/01/24 11:36 BP 164/71 H 06/01/24 11:36 Pulse Ox 94 06/01/24 11:36 O2 Del Method Room Air 06/01/24 11:36 FiO2 25 05/29/24 19:53 BMI result Body Mass Index 29.7 Const: General: alert, awake and Physically active Nutritional Appearance: obese Orientation/consciousness: patient oriented x3 Resp: Effort & Inspection: normal respiratory effort, able to speak in complete sentences, no respiratory distress and no use of accessory muscles Cardio: Rate: regular rate GI: Other: mild epigastric tenderness; softly distended, no rebound, no guarding Palpation (GI): Soft to palpation Neuro: General: patient oriented x3, moves all extremities and CN's II-XI intact bilaterally Objective Data Active Medications Acetaminophen (Acetaminophen 325 Mg Tablet) 975 mg PO TID PRN PRN Reason: Leg Cramp Last Admin: 05/31/24 21:56 Dose: 975 mg Documented By: NORAH Albuterol Sulfate (Albuterol Sulfate 90 Mcg 8 Gm Inhaler) 2 puff INHALE Q4H PRN PRN Reason: wheezing Albuterol Sulfate (Albuterol Sulfate (0.083%) 2.5 Mg/3 Ml Vial.Neb) 2.5 mg INHALE Q4H PRN PRN Reason: Shortness of Breath/Wheezing Last Admin: 05/31/24 06:03 Dose: 2.5 mg Documented By: LIA Amlodipine Besylate (Amlodipine Besylate 10 Mg Tablet) 10 mg PO DAILY [facility]; Protocol Last Admin: 06/01/24 10:27 Dose: 10 mg Documented By: JORGE Aspirin (Aspirin Enteric Coated 81 Mg Tablet.) 81 mg PO DAILY [facility] Last Admin: 06/01/24 10:26 Dose: 81 mg Documented By: OJRGE Buprenorphine/Naloxone (Buprenorphine/Naloxone 12/3 Mg Film) 1 film SUBLINGUAL DAILY [facility] Last Admin: 06/01/24 10:27 Dose: 1 film Documented By: JORGE Calcium Acetate (Calcium Acetate 667 Mg Capsule) 1,334 mg PO TIDWM [facility] Last Admin: 06/01/24 10:26 Dose: 1,334 mg Documented By: JORGE Carvedilol (Carvedilol 25 Mg Tablet) 25 mg PO BID [facility]; Protocol Last Admin: 06/01/24 10:26 Dose: 25 mg Documented By: JORGE Clonidine HCl (Clonidine Hcl 0.1 Mg Tablet) 0.1 mg PO TID [facility]; Protocol Last Admin: 06/01/24 10:27 Dose: 0.1 mg Documented By: JORGE Docusate Sodium (Docusate Sodium 100 Mg Capsule) 100 mg PO BEDTIME [facility] Last Admin: 05/31/24 21:48 Dose: 100 mg Documented By: NORAH Glucose (Glucose Gel 15 Gm Gel..Gram.) 15 gm PO Q15M PRN; Protocol PRN Reason: per Hypoglycemia Standing Ord. Heparin Sodium (Porcine) (Heparin Sodium,Porcine 5,000 Unit/Ml Vial) 5,000 unit SUBCUT Q8H [facility] Last Admin: 06/01/24 06:19 Dose: 5,000 unit Documented By: NORAH Hydralazine HCl (Hydralazine Hcl 50 Mg Tablet) 50 mg PO TID [facility]; Protocol Last Admin: 06/01/24 10:25 Dose: 50 mg Documented By: JORGE Dextrose (D10) 250 mls @ 750 mls/hr IV Q15M PRN; Protocol PRN Reason: per Hypoglycemia Standing Ord. Dextrose/Sodium Chloride (D5ns) 1,000 mls @ 75 mls/hr IVCONT .[id number] [facility] Last Admin: 06/01/24 06:19 Dose: 75 mls/hr Documented By: NORAH Isosorbide Dinitrate (Isosorbide Dinitrate 10 Mg Tablet) 30 mg PO TID [facility]; Protocol Last Admin: 06/01/24 10:26 Dose: 30 mg Documented By: JORGE Lidocaine (Lidocaine 4 % Patch Adh..Patch) 1 patch TRANSDERMA DAILY [facility]; Protocol Last Admin: 06/01/24 10:27 Dose: 1 patch Documented By: JORGE Mirtazapine (Mirtazapine 15 Mg Tablet) 15 mg PO BEDTIME [facility] Last Admin: 05/31/24 21:54 Dose: 15 mg Documented By: NORAH Morphine Sulfate (Morphine Sulfate 2 Mg/Ml Cartridge) 2 mg IVPUSH Q4H PRN; Protocol PRN Reason: Pain, Moderate(Pain Scale 4-6) Ondansetron HCl (Ondansetron Hcl 4 Mg/2 Ml Vial) 4 mg IVPUSH Q8H PRN PRN Reason: Nausea and Vomiting Pantoprazole Sodium (Pantoprazole Sodium 40 Mg/10 Ml Vial) 40 mg IVPUSH DAILY@0630 [facility] Last Admin: 06/01/24 06:19 Dose: 40 mg Documented By: NORAH Polyethylene Glycol (Polyethylene Glycol 3350 17 Gm Powd.Pack) 17 gm PO DAILY [facility] Last Admin: 06/01/24 10:29 Dose: 17 gm Documented By: JORGE Sodium Zirconium Cyclosilicate (Sodium Zirconium Cyclosilicate 10 Gm Powd.Pack) 10 gm PO MOWEFR@0900 [facility] Last Admin: 05/30/24 09:20 Dose: 10 gm Documented By: JULIENNEPARichy Trazodone HCl (Trazodone Hcl 50 Mg Tablet) 50 mg PO BEDTIME PRN PRN Reason: Insomnia Trolamine Salicylate (Trolamine Salicylate 10 % Cream 85 Gm Tube) 1 appl TOPICAL BID PRN; Protocol PRN Reason: muscle soreness Labs 05/31/24 05:44 05/31/24 05:44 Labs: Laboratory Results - last 24 hr 05/31/24 05/31/24 05/31/24 14:17 15:23 20:17 POC Glucose 98 164 H 149 H Triglycerides Lipase 06/01/24 06/01/24 06/01/24 06:20 07:48 11:38 POC Glucose 130 H 116 H Triglycerides 118 Lipase 83 H Assessment and Plan (1) Acute pancreatitis: Status: Acute Plan This is a 69-year-old female with h/o ESRD on maintenance hemodialysis M/W/F with poor compliance (3rd admission since April for hypertension, shortness of breath, hyperkalemia), history of hypotension, diabetes mellitus, COPD, pulmonary hypertension, hypertrophic cardiomyopathy, opioid dependence on buprenorphine, GERD, chronic back pain presented to the ED with altered sensorium and shortness of breath. Her labs were significant for hyperkalemia with potassium of 6.6, hypertension, pulmonary edema needing BiPAP support so MICU was consulted for admission for emergent dialysis. Following dialysis she was weaned off of supplemental oxygen and downgraded to the medical floor. On arrival to the medical floor began having abdominal pain found to have pancreatitis Acute pancreatitis of uncertain etiology does not drink etoh, no gallstones on imaging, TG low seen by GI - IGg pending Lipase trending down, abdominal pain improving will advance to full liquids ESRD on HD MWF s/p emergent HD 05/29. non compliant with HD, previous admissions requiring emergent dialysis Nephrology following Continue hemodialysis as scheduled [facility] Continue baseline Lokelma constipation had BM 05/31 constinue bowel regimen Acute respiratory failure with hypoxia Due to underlying ESRD and missing dialysis. Resolved with HD HTN Continue baseline Coreg, clonidine, hydralazine, Norvasc DM not on baseline meds follow POCs, cover with sliding scale as needed gerd IV PPI, transition back to p.o. when tolerating oral intake Opiate dependence Continue Suboxone dvt ppx - heparin Patient requires ongoing inpatient stay for management of acute pancreatitis of uncertain etiology and specialist evaluation Quality Stroke Does the patient have a stroke diagnosis?: No VTE Prior VTE?: No VTE Risk Level:: Medical - low VTE Device Contraindication: N/A - Device Ordered VTE Drug Contraindication: N/A - Med Ordered
[2024-06-01 16:40] LABS: Glucose, Whole Blood 220 mg/dL (60-115)
[2024-06-01] MEDS: Docusate Sodium 100 MG CAPSULE PO (22:07)
[2024-06-01] MEDS: Mirtazapine 15 MG TABLET PO (22:08)
[2024-06-01] MEDS: traZODone HCL 50 MG TABLET PO (22:09)
[2024-06-01 22:12] LABS: Glucose, Whole Blood 229 mg/dL (60-115)
[2024-06-02] VITALS (7 sets, daily range): BP systolic 149–162; BP diastolic 64–94; PULSE 63–72; RESP 16–20; TEMP 36.2–37.1; O2SAT 95–98; BMI 28.9
[2024-06-02] MEDS: Heparin Sodium,Porcine 5,000 UNIT/ML VIAL 5000 UNIT SUBCUT ×3 (07:36→21:25)
[2024-06-02] MEDS: Pantoprazole Sodium 40 MG/10 ML VIAL IVPUSH (07:36)
[2024-06-02 07:59] LABS: Glucose, Whole Blood 125 mg/dL (60-115)
[2024-06-02 11:13] LABS: Glucose, Whole Blood 261 mg/dL (60-115)
[2024-06-02] MEDS: Calcium Acetate 667 MG CAPSULE 1334 MG PO ×2 (11:24→17:07)
[2024-06-02] MEDS: hydrALAZINE HCl 50 MG TABLET PO ×2 (11:25→20:26)
[2024-06-02] MEDS: Isosorbide Dinitrate 10 MG TABLET 30 MG PO ×2 (11:25→20:25)
[2024-06-02] MEDS: cloNIDine HCL 0.1 MG TABLET PO ×2 (11:25→20:26)
[2024-06-02] MEDS: amLODIPine Besylate 10 MG TABLET PO (11:25)
[2024-06-02] MEDS: carvediloL 25 MG TABLET PO ×2 (11:26→20:26)
[2024-06-02] MEDS: Aspirin Enteric Coated 81 MG TABLET.DR PO (11:26)
[2024-06-02] MEDS: Sodium Zirconium Cyclosilicate 10 GM POWD.PACK PO (11:26)
[2024-06-02] MEDS: polyethylene glycoL 3350 17 GM POWD.PACK PO (11:27)
[2024-06-02] MEDS: Lidocaine 4 % Patch ADH..PATCH 1 PATCH TRANSDERMA (11:27)
[2024-06-02] MEDS: Buprenorphine/Naloxone 12/3 mg FILM 1 FILM SUBLINGUAL (11:30)
--- NOTE | 2024-06-02 12:01 | P.PNIM_ITS ---
Subjective Subjective Date of Service: 06/02/24 Interval History: seen and examined this morning follow up for respiratory failure, pancreatitis, constipation abdominal pain improving no nausea had BM overnight Review of Systems Review of Systems: Yes all other systems are reviewed and are negative Constitutional Constitutional: Denies chills and Denies fever(s) Cardiovascular Cardiovascular: Denies chest pain Gastrointestinal Gastrointestinal: Reports abdominal pain and Denies nausea Physical Exam 2 Vital Signs: Vital Signs: Last Vital Signs Temp 97.9 F 06/02/24 11:05 Pulse 72 06/02/24 11:05 Resp 18 06/02/24 11:05 BP 152/82 H 06/02/24 11:05 Pulse Ox 97 06/02/24 11:05 O2 Del Method Room Air 06/02/24 11:05 FiO2 25 05/29/24 19:53 BMI result Body Mass Index 28.9 Appearing in no acute distress lung sounds are clear to auscultation heart regular rate rhythm, clear S1, S2 positive bowel sounds, abdomen is soft, nontender neuro patient is alert x3, no focal deficits Objective Data Active Medications Acetaminophen (Acetaminophen 325 Mg Tablet) 975 mg PO TID PRN PRN Reason: Leg Cramp Last Admin: 05/31/24 21:56 Dose: 975 mg Documented By: NORAH Albuterol Sulfate (Albuterol Sulfate 90 Mcg 8 Gm Inhaler) 2 puff INHALE Q4H PRN PRN Reason: wheezing Albuterol Sulfate (Albuterol Sulfate (0.083%) 2.5 Mg/3 Ml Vial.Neb) 2.5 mg INHALE Q4H PRN PRN Reason: Shortness of Breath/Wheezing Last Admin: 05/31/24 06:03 Dose: 2.5 mg Documented By: LIA Amlodipine Besylate (Amlodipine Besylate 10 Mg Tablet) 10 mg PO DAILY [facility]; Protocol Last Admin: 06/02/24 11:25 Dose: 10 mg Documented By: NANI Aspirin (Aspirin Enteric Coated 81 Mg Tablet.) 81 mg PO DAILY [facility] Last Admin: 06/02/24 11:26 Dose: 81 mg Documented By: NANI Buprenorphine/Naloxone (Buprenorphine/Naloxone 12/3 Mg Film) 1 film SUBLINGUAL DAILY [facility] Last Admin: 06/02/24 11:30 Dose: 1 film Documented By: NANI Calcium Acetate (Calcium Acetate 667 Mg Capsule) 1,334 mg PO TIDWM [facility] Last Admin: 06/02/24 11:57 Dose: Not Given Documented By: NANI Non-Admin Reason: Nausea Carvedilol (Carvedilol 25 Mg Tablet) 25 mg PO BID [facility]; Protocol Last Admin: 06/02/24 11:26 Dose: 25 mg Documented By: NANI Clonidine HCl (Clonidine Hcl 0.1 Mg Tablet) 0.1 mg PO TID [facility]; Protocol Last Admin: 06/02/24 11:25 Dose: 0.1 mg Documented By: NANI Docusate Sodium (Docusate Sodium 100 Mg Capsule) 100 mg PO BEDTIME [facility] Last Admin: 06/01/24 22:07 Dose: 100 mg Documented By: JERMAINE Glucose (Glucose Gel 15 Gm Gel..Gram.) 15 gm PO Q15M PRN; Protocol PRN Reason: per Hypoglycemia Standing Ord. Heparin Sodium (Porcine) (Heparin Sodium,Porcine 5,000 Unit/Ml Vial) 5,000 unit SUBCUT Q8H [facility] Last Admin: 06/02/24 07:36 Dose: 5,000 unit Documented By: JERMAINE Hydralazine HCl (Hydralazine Hcl 50 Mg Tablet) 50 mg PO TID [facility]; Protocol Last Admin: 06/02/24 11:25 Dose: 50 mg Documented By: NANI Dextrose (D10) 250 mls @ 750 mls/hr IV Q15M PRN; Protocol PRN Reason: per Hypoglycemia Standing Ord. Isosorbide Dinitrate (Isosorbide Dinitrate 10 Mg Tablet) 30 mg PO TID [facility]; Protocol Last Admin: 06/02/24 11:25 Dose: 30 mg Documented By: NANI Lidocaine (Lidocaine 4 % Patch Adh..Patch) 1 patch TRANSDERMA DAILY [facility]; Protocol Last Admin: 06/02/24 11:27 Dose: 1 patch Documented By: NANI Mirtazapine (Mirtazapine 15 Mg Tablet) 15 mg PO BEDTIME [facility] Last Admin: 06/01/24 22:08 Dose: 15 mg Documented By: JERMAINE Morphine Sulfate (Morphine Sulfate 2 Mg/Ml Cartridge) 2 mg IVPUSH Q4H PRN; Protocol PRN Reason: Pain, Moderate(Pain Scale 4-6) Ondansetron HCl (Ondansetron Hcl 4 Mg/2 Ml Vial) 4 mg IVPUSH Q8H PRN PRN Reason: Nausea and Vomiting Pantoprazole Sodium (Pantoprazole Sodium 40 Mg/10 Ml Vial) 40 mg IVPUSH DAILY@0630 [facility] Last Admin: 06/02/24 07:36 Dose: 40 mg Documented By: JERMAINE Polyethylene Glycol (Polyethylene Glycol 3350 17 Gm Powd.Pack) 17 gm PO DAILY [facility] Last Admin: 06/02/24 11:27 Dose: 17 gm Documented By: NANI Sodium Zirconium Cyclosilicate (Sodium Zirconium Cyclosilicate 10 Gm Powd.Pack) 10 gm PO MOWEFR@0900 [facility] Last Admin: 06/02/24 11:26 Dose: 10 gm Documented By: NANI Trazodone HCl (Trazodone Hcl 50 Mg Tablet) 50 mg PO BEDTIME PRN PRN Reason: Insomnia Last Admin: 06/01/24 22:09 Dose: 50 mg Documented By: JERMAINE Trolamine Salicylate (Trolamine Salicylate 10 % Cream 85 Gm Tube) 1 appl TOPICAL BID PRN; Protocol PRN Reason: muscle soreness Labs 05/31/24 05:44 05/31/24 05:44 Labs: Laboratory Results - last 24 hr 06/01/24 06/01/24 06/02/24 16:34 21:40 07:21 POC Glucose 220 H 229 H 125 H 06/02/24 10:59 POC Glucose 261 H Assessment and Plan (1) Acute pancreatitis: Status: Acute Plan This is a 69-year-old female with h/o ESRD on maintenance hemodialysis M/W/F with poor compliance (3rd admission since April for hypertension, shortness of breath, hyperkalemia), history of hypotension, diabetes mellitus, COPD, pulmonary hypertension, hypertrophic cardiomyopathy, opioid dependence on buprenorphine, GERD, chronic back pain presented to the ED with altered sensorium and shortness of breath. Her labs were significant for hyperkalemia with potassium of 6.6, hypertension, pulmonary edema needing BiPAP support so MICU was consulted for admission for emergent dialysis. Following dialysis she was weaned off of supplemental oxygen and downgraded to the medical floor. On arrival to the medical floor began having abdominal pain found to have pancreatitis Acute pancreatitis of uncertain etiology does not drink etoh, no gallstones on imaging, TG low seen by GI - IGg pending Lipase trending down, abdominal pain improving full liquids ESRD on HD MWF s/p emergent HD 05/29. non compliant with HD, previous admissions requiring emergent dialysis Nephrology following Continue hemodialysis as scheduled [facility] Continue baseline Lokelma constipation had BM 05/31 constinue bowel regimen Acute respiratory failure with hypoxia Due to underlying ESRD and missing dialysis. Resolved with HD HTN Continue baseline Coreg, clonidine, hydralazine, Norvasc DM not on baseline meds follow POCs, cover with sliding scale as needed gerd IV PPI, transition back to p.o. when tolerating oral intake Opiate dependence Continue Suboxone dvt ppx - heparin Patient requires ongoing inpatient stay for management of acute pancreatitis of uncertain etiology and specialist evaluation Quality Stroke Does the patient have a stroke diagnosis?: No VTE Prior VTE?: No VTE Risk Level:: Medical - low VTE Device Contraindication: N/A - Device Ordered VTE Drug Contraindication: N/A - Med Ordered
[2024-06-02] MEDS: ondansetron HCL 4 MG/2 ML VIAL IVPUSH ×2 (12:02→21:58)
[2024-06-02 12:11] LABS: Glucose, Whole Blood 254 mg/dL (60-115)
--- NOTE | 2024-06-02 15:07 | MHC.CM.PN ---
Per rounds and record review, pt requires ongoing acute care for acute pancreatitis. CM to follow for DC needs.
[2024-06-02 16:09] LABS: Glucose, Whole Blood 200 mg/dL (60-115)
[2024-06-02] MEDS: Insulin Lispro 100 UNIT/ML 3 ML VIAL SUBCUT (17:07)
[2024-06-02] MEDS: Docusate Sodium 100 MG CAPSULE PO (20:26)
[2024-06-02] MEDS: Mirtazapine 15 MG TABLET PO (20:26)
[2024-06-02 20:53] LABS: Glucose, Whole Blood 93 mg/dL (60-115)
[2024-06-03] VITALS (9 sets, daily range): BP systolic 144–185; BP diastolic 56–87; PULSE 58–70; RESP 17–20; TEMP 36.7–37.1; O2SAT 93–98; BMI 28.9
[2024-06-03] MEDS: Pantoprazole Sodium 40 MG/10 ML VIAL IVPUSH (05:58)
[2024-06-03] MEDS: Heparin Sodium,Porcine 5,000 UNIT/ML VIAL 5000 UNIT SUBCUT ×3 (05:58→23:05)
[2024-06-03] MEDS: ondansetron HCL 4 MG/2 ML VIAL IVPUSH (06:05)
[2024-06-03 07:50] LABS: Glucose, Whole Blood 168 mg/dL (60-115)
[2024-06-03] MEDS: Calcium Acetate 667 MG CAPSULE 1334 MG PO ×3 (08:09→19:12)
[2024-06-03] MEDS: Isosorbide Dinitrate 10 MG TABLET 30 MG PO ×3 (08:09→23:04)
[2024-06-03] MEDS: hydrALAZINE HCl 50 MG TABLET PO ×3 (08:09→23:04)
[2024-06-03] MEDS: carvediloL 25 MG TABLET PO ×2 (08:11→23:04)
[2024-06-03] MEDS: Aspirin Enteric Coated 81 MG TABLET.DR PO (08:11)
[2024-06-03] MEDS: amLODIPine Besylate 10 MG TABLET PO (08:11)
[2024-06-03] MEDS: cloNIDine HCL 0.1 MG TABLET PO ×3 (08:11→23:05)
[2024-06-03] MEDS: Insulin Lispro 100 UNIT/ML 3 ML VIAL SUBCUT ×2 (08:13→15:32)
[2024-06-03] MEDS: Buprenorphine/Naloxone 12/3 mg FILM 1 FILM SUBLINGUAL (08:15)
[2024-06-03] MEDS: Lidocaine 4 % Patch ADH..PATCH 1 PATCH TRANSDERMA (08:15)
[2024-06-03] MEDS: polyethylene glycoL 3350 17 GM POWD.PACK PO (08:15)
[2024-06-03 11:43] LABS: Immunoglobulin G Subclass 1 494 mg/dL (382-929); Immunoglobulin G Subclass 2 116 mg/dL (241-700); Immunoglobulin G Subclass 3 72 mg/dL (22-178); Immunoglobulin G Subclass 4 34.6 mg/dL (4-86); Immunoglobulin G Total 765 mg/dL (600-1540)
--- NOTE | 2024-06-03 13:00 | MHC.CM.PN ---
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 I met with pt and extrusion machine operator about this and asked if she wants me to put in a referral to protective services to help her with this and she said yes. Report filed today with [facility] protective services.
--- NOTE | 2024-06-03 13:44 | HO.PM.IMPN ---
Subjective Subjective Date of Service: 06/03/24 Interval History: seen and examined this morning follow up for respiratory failure, pancreatitis, constipation abdominal pain improving no nausea Review of Systems Review of Systems: Yes all other systems are reviewed and are negative Constitutional Constitutional: Denies chills and Denies fever(s) Cardiovascular Cardiovascular: Denies chest pain Gastrointestinal Gastrointestinal: Reports abdominal pain and Denies nausea Physical Exam Vital Signs: Vital Signs: Last Vital Signs Temp 98.4 F 06/03/24 07:51 Pulse 70 06/03/24 07:51 Resp 18 06/03/24 07:51 BP 185/87 H 06/03/24 07:51 Pulse Ox 95 06/03/24 07:51 O2 Del Method Room Air 06/03/24 07:51 FiO2 25 05/29/24 19:53 BMI result Body Mass Index 28.9 Appearing in no acute distress lung sounds are clear to auscultation heart regular rate rhythm, clear S1, S2 positive bowel sounds, abdomen is soft, nontender neuro patient is alert x3, no focal deficits Objective Data Active Medications Acetaminophen (Acetaminophen 325 Mg Tablet) 975 mg PO TID PRN PRN Reason: Leg Cramp Last Admin: 05/31/24 21:56 Dose: 975 mg Documented By: NORAH Albuterol Sulfate (Albuterol Sulfate 90 Mcg 8 Gm Inhaler) 2 puff INHALE Q4H PRN PRN Reason: wheezing Albuterol Sulfate (Albuterol Sulfate (0.083%) 2.5 Mg/3 Ml Vial.Neb) 2.5 mg INHALE Q4H PRN PRN Reason: Shortness of Breath/Wheezing Last Admin: 05/31/24 06:03 Dose: 2.5 mg Documented By: LIA Amlodipine Besylate (Amlodipine Besylate 10 Mg Tablet) 10 mg PO DAILY [facility]; Protocol Last Admin: 06/03/24 08:11 Dose: 10 mg Documented By: NOVA Aspirin (Aspirin Enteric Coated 81 Mg Tablet.) 81 mg PO DAILY [facility] Last Admin: 06/03/24 08:11 Dose: 81 mg Documented By: NOVA Buprenorphine/Naloxone (Buprenorphine/Naloxone 12/3 Mg Film) 1 film SUBLINGUAL DAILY [facility] Last Admin: 06/03/24 08:15 Dose: 1 film Documented By: NOVA Calcium Acetate (Calcium Acetate 667 Mg Capsule) 1,334 mg PO TIDWM [facility] Last Admin: 06/03/24 08:09 Dose: 1,334 mg Documented By: NOVA Carvedilol (Carvedilol 25 Mg Tablet) 25 mg PO BID [facility]; Protocol Last Admin: 06/03/24 08:11 Dose: 25 mg Documented By: NOVA Clonidine HCl (Clonidine Hcl 0.1 Mg Tablet) 0.1 mg PO TID [facility]; Protocol Last Admin: 06/03/24 08:11 Dose: 0.1 mg Documented By: NOVA Docusate Sodium (Docusate Sodium 100 Mg Capsule) 100 mg PO BEDTIME [facility] Last Admin: 06/02/24 20:26 Dose: 100 mg Documented By: LILIBETH Glucose (Glucose Gel 15 Gm Gel..Gram.) 15 gm PO Q15M PRN; Protocol PRN Reason: per Hypoglycemia Standing Ord. Glucose (Glucose Gel 15 Gm Gel..Gram.) 15 gm PO Q15M PRN; Protocol PRN Reason: per Hypoglycemia Standing Ord. Heparin Sodium (Porcine) (Heparin Sodium,Porcine 5,000 Unit/Ml Vial) 5,000 unit SUBCUT Q8H [facility] Last Admin: 06/03/24 05:58 Dose: 5,000 unit Documented By: JANE Hydralazine HCl (Hydralazine Hcl 50 Mg Tablet) 50 mg PO TID [facility]; Protocol Last Admin: 06/03/24 08:09 Dose: 50 mg Documented By: NOVA Dextrose (D10) 250 mls @ 750 mls/hr IV Q15M PRN; Protocol PRN Reason: per Hypoglycemia Standing Ord. Dextrose (D10) 250 mls @ 750 mls/hr IV Q15M PRN; Protocol PRN Reason: per Hypoglycemia Standing Ord. Insulin Human Lispro (Insulin Lispro 100 Unit/Ml 3 Ml Vial) 0 unit SUBCUT QIDACHS [facility]; Protocol Last Admin: 06/03/24 08:13 Dose: 2 unit Documented By: NOVA Isosorbide Dinitrate (Isosorbide Dinitrate 10 Mg Tablet) 30 mg PO TID [facility]; Protocol Last Admin: 06/03/24 08:09 Dose: 30 mg Documented By: NOVA Lidocaine (Lidocaine 4 % Patch Adh..Patch) 1 patch TRANSDERMA DAILY [facility]; Protocol Last Admin: 06/03/24 08:15 Dose: 1 patch Documented By: NOVA Mirtazapine (Mirtazapine 15 Mg Tablet) 15 mg PO BEDTIME [facility] Last Admin: 06/02/24 20:26 Dose: 15 mg Documented By: LILIBETH Morphine Sulfate (Morphine Sulfate 2 Mg/Ml Cartridge) 2 mg IVPUSH Q4H PRN; Protocol PRN Reason: Pain, Moderate(Pain Scale 4-6) Ondansetron HCl (Ondansetron Hcl 4 Mg/2 Ml Vial) 4 mg IVPUSH Q8H PRN PRN Reason: Nausea and Vomiting Last Admin: 06/03/24 06:05 Dose: 4 mg Documented By: JANE Polyethylene Glycol (Polyethylene Glycol 3350 17 Gm Powd.Pack) 17 gm PO DAILY [facility] Last Admin: 06/02/24 11:27 Dose: 17 gm Documented By: NANI Sodium Zirconium Cyclosilicate (Sodium Zirconium Cyclosilicate 10 Gm Powd.Pack) 10 gm PO MOWEFR@0900 [facility] Last Admin: 06/02/24 11:26 Dose: 10 gm Documented By: NANI Trazodone HCl (Trazodone Hcl 50 Mg Tablet) 50 mg PO BEDTIME PRN PRN Reason: Insomnia Last Admin: 06/01/24 22:09 Dose: 50 mg Documented By: JERMAINE Trolamine Salicylate (Trolamine Salicylate 10 % Cream 85 Gm Tube) 1 appl TOPICAL BID PRN; Protocol PRN Reason: muscle soreness Labs 05/31/24 05:44 05/31/24 05:44 Labs: Laboratory Results - last 24 hr 06/01/24 06/02/24 06/02/24 06:20 16:00 20:36 POC Glucose 200 H 93 IgG Total 765 IgG Subclass 1 494 IgG Subclass 2 116 L IgG Subclass 3 72 IgG Subclass 4 34.6 06/03/24 07:47 POC Glucose 168 H IgG Total IgG Subclass 1 IgG Subclass 2 IgG Subclass 3 IgG Subclass 4 Assessment and Plan (1) Acute pancreatitis: Status: Acute Plan This is a 69-year-old female with h/o ESRD on maintenance hemodialysis M/W/F with poor compliance (3rd admission since April for hypertension, shortness of breath, hyperkalemia), history of hypotension, diabetes mellitus, COPD, pulmonary hypertension, hypertrophic cardiomyopathy, opioid dependence on buprenorphine, GERD, chronic back pain presented to the ED with altered sensorium and shortness of breath. Her labs were significant for hyperkalemia with potassium of 6.6, hypertension, pulmonary edema needing BiPAP support so MICU was consulted for admission for emergent dialysis. Following dialysis she was weaned off of supplemental oxygen and downgraded to the medical floor. On arrival to the medical floor began having abdominal pain found to have pancreatitis Reported depression labile emotions, crying not on psychiatric medications psych consult Acute pancreatitis of uncertain etiology abd pain resolved does not drink etoh, no gallstones on imaging, TG low seen by GI - IGg low Lipase trending down, abdominal pain improving advance diet ESRD on HD MWF s/p emergent HD 05/29. non compliant with HD, previous admissions requiring emergent dialysis Nephrology following Continue hemodialysis as scheduled [facility] Continue baseline Lokelma constipation had BM 05/31 continue bowel regimen Acute respiratory failure with hypoxia Due to underlying ESRD and missing dialysis. Resolved with HD HTN Continue baseline Coreg, clonidine, hydralazine, Norvasc DM2 not on baseline meds follow POCs, cover with sliding scale as needed gerd PPI Opiate dependence Continue Suboxone dvt ppx - heparin Patient requires ongoing inpatient stay for management of acute pancreatitis of uncertain etiology and specialist evaluation Quality Stroke Does the patient have a stroke diagnosis?: No VTE Prior VTE?: No VTE Risk Level:: Medical - low VTE Device Contraindication: N/A - Device Ordered VTE Drug Contraindication: N/A - Med Ordered
--- NOTE | 2024-06-03 13:52 | P.CDIM_ITS ---
PROVIDER RESPONSE TEXT: To clarify, the appropriate diagnosis supported by the clinical indicators: Acute non-cardiac pulmonary edema due to fluid overload QUERY TEXT: PHYSICIAN'S DOCUMENTATION REQUEST Date of Query: 06/03/2024 08:47 AM EST Patient Name: Cruz Muller Admit Date: 05/29/2024 Dear Angelica Ashby BEATER LEAD, A review of the medical record indicates additional documentation may be needed. Please review below and update the documentation accordingly. Clinical Indicators: Progress notes within the written Plan 06/02 - Her labs were significant for hyperkalemia with potassi um of 6.6, hypertension, pulmonary edema needing BIPAP support. ESRD, Acute hypoxic respiratory failure PMH: Congestive heart failure with left ventricular dysfunction. Based on the above, could you please provide, in the Progress Notes, further specificity regarding th e acuity and etiology of the pulmonary edema? Acute non-cardiac pulmonary edema due to fluid overload Acute non-cardiac pulmonary edema due to other cause Please specify other cause Acute pulmonary edema due to heart failure Please further specify the type and acuity Chronic pulmonary edema due to non-cardiac etiology Please specify cause Chronic pulmonary edema due to heart failure Please further specify the type and acuity Other (explain) Clinically unable to determine (explain) Thank you, Khloe Kyle, CCS, CDIS Use of terms such as suspected, likely, concern for, or probable (associated with a specific diagnosi s that is being evaluated, monitored, or treated as if it exists) are acceptable and can be coded in the inpatient se tting, when documented at the time of discharge. Please use your independent medical judgment in providing your response. THIS QUERY IS PART OF THE PERMANENT MEDICAL RECORD
[2024-06-03 14:19] LABS: Glucose, Whole Blood 205 mg/dL (60-115)
[2024-06-03 15:21] LABS: Hematocrit 33.7 % (37.0-47.0); Hemoglobin 11.3 g/dl (12.0-16.0); Mean Corpuscular HGB Conc 33.5 g/dl (31.0-35.0); Mean Corpuscular Volume 98.5 fL (80.0-98.0); Mean Platelet Volume 10.2 fL (9.4-12.3); Platelet Count 208 X10*3/uL (160-400); Red Blood Count 3.42 X10*6/uL (4.20-5.50); Red Cell Distribution Width 14.9 % (11.0-16.0); White Blood Count 5.2 X10*3/uL (4.8-10.8)
[2024-06-03 15:47] LABS: Anion Gap 13 (12-20); Blood Urea Nitrogen 11 mg/dL (9-16); Calcium 8.8 mg/dL (8.4-10.2); Carbon Dioxide 20 mmol/L (22-29); Chloride 100 mmol/L (96-108); Creatinine Clr Calc Pharmacy 14.4; Estimated Glomerular Filt Rate 14; Glucose Random 223 mg/dL (60-115); Lipase 46 U/L (8-78); Potassium 3.9 mmol/L (3.3-5.1); Sodium 129 mmol/L (135-145)
[2024-06-03 16:25] LABS: Glucose, Whole Blood 201 mg/dL (60-115)
[2024-06-03 16:52] LABS: Glucose, Whole Blood 164 mg/dL (60-115)
[2024-06-03 19:11] LABS: Glucose, Whole Blood 111 mg/dL (60-115)
[2024-06-03] MEDS: Acetaminophen 325 MG TABLET 975 MG PO (19:12)
[2024-06-03 20:39] LABS: Glucose, Whole Blood 114 mg/dL (60-115)
[2024-06-03] MEDS: Docusate Sodium 100 MG CAPSULE PO (23:05)
[2024-06-03] MEDS: Mirtazapine 15 MG TABLET PO (23:05)
[2024-06-04 04:00] VITALS: BP 161/76; PULSE 57; RESP 16; TEMP 36.3; O2SAT 99
[2024-06-04 06:00] VITALS: BMI 28.8
[2024-06-04] MEDS: Heparin Sodium,Porcine 5,000 UNIT/ML VIAL 5000 UNIT SUBCUT ×2 (06:16→12:03)
[2024-06-04 07:03] LABS: Glucose, Whole Blood 137 mg/dL (60-115)
[2024-06-04 07:04] VITALS: BP 200/92; PULSE 64; RESP 16; TEMP 36.7; O2SAT 97
[2024-06-04] MEDS: ondansetron HCL 4 MG/2 ML VIAL IVPUSH (07:35)
[2024-06-04] MEDS: amLODIPine Besylate 10 MG TABLET PO (07:38)
[2024-06-04] MEDS: Aspirin Enteric Coated 81 MG TABLET.DR PO (07:38)
[2024-06-04] MEDS: hydrALAZINE HCl 50 MG TABLET PO (07:38)
[2024-06-04] MEDS: Sodium Zirconium Cyclosilicate 10 GM POWD.PACK PO (07:38)
[2024-06-04] MEDS: Calcium Acetate 667 MG CAPSULE 1334 MG PO ×2 (07:38→12:03)
[2024-06-04] MEDS: carvediloL 25 MG TABLET PO (07:38)
[2024-06-04] MEDS: polyethylene glycoL 3350 17 GM POWD.PACK PO (07:38)
[2024-06-04] MEDS: cloNIDine HCL 0.1 MG TABLET PO (07:38)
[2024-06-04] MEDS: Isosorbide Dinitrate 10 MG TABLET 30 MG PO (07:38)
[2024-06-04] MEDS: Lidocaine 4 % Patch ADH..PATCH 1 PATCH TRANSDERMA (07:39)
[2024-06-04] MEDS: Buprenorphine/Naloxone 12/3 mg FILM 1 FILM SUBLINGUAL (07:39)
[2024-06-04 09:13] VITALS: BP 134/60
[2024-06-04 09:52] LABS: Calcium 9.2 mg/dL (8.4-10.2); Glucose Random 130 mg/dL (60-115)
[2024-06-04 10:04] LABS: Anion Gap 15 (12-20); Blood Urea Nitrogen 24 mg/dL (9-16); Carbon Dioxide 21 mmol/L (22-29); Chloride 100 mmol/L (96-108); Sodium 131 mmol/L (135-145)
[2024-06-04 10:24] LABS: Creatinine Clr Calc Pharmacy 9.9; Estimated Glomerular Filt Rate 9
[2024-06-04 11:06] VITALS: BP 143/66; PULSE 59; RESP 18; TEMP 36.2; O2SAT 96
--- NOTE | 2024-06-04 11:09 | MHC.CM.PN ---
Second IMM given 06/04. 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 Pt will transport home today via BLS/Emy. [facility] transport auth received (booking ID#[id number]).
[2024-06-04 11:11] LABS: Glucose, Whole Blood 183 mg/dL (60-115)
--- NOTE | 2024-06-04 11:27 | P.DS_ITS ---
DS: Providers Provider Date of Service: 06/04/24 Date of admission: 05/29/24 13:48 Date of discharge: 06/04/24 Primary care physician: Sammy Vicente MD Consults: 05/30/24 14:29 Consult to Gastroenterology Routine Consulting Provider: Joao Schroeder Reason for consultation: pancreatitis Has provider been notified: No 05/31/24 16:09 Consult to Nephrology Routine Consulting Provider: [facility] [place] [facility] Reason for consultation: ESRD on HD 06/03/24 13:49 Consult to Psychiatry Routine Consulting Provider: [facility] – [place] [facility] Reason for consultation: depression DS: Diagnosis Discharge Diagnosis (1) Acute pancreatitis: Status: Acute DS: Summary Hospital Course Hospital Course: History and physical for admitting provider. 81-year-old 69-year-old lady with multiple comorbidities not limited to ESRD on maintenance hemodialysis M/W/F with poor compliance (3rd admission since April for hypertension, shortness of breath, hyperkalemia), history of hypotension, diabetes mellitus, COPD, pulmonary hypertension, hypertrophic cardiomyopathy, opioid dependence on buprenorphine, GERD, chronic back pain presented to the ED with altered sensorium and shortness of breath. Her labs were significant for hyperkalemia with potassium of 6.6, hypertension, pulmonary edema needing BiPAP support so MICU was consulted for admission for emergent dialysis. She was admitted here with similar complaints on 2024 and discharged home on 05/23/2024. After discharge she was admitted to [facility] for rectal prolapse surgery. She does not remember her last dialysis. 69-year-old woman treated for acute pancreatitis of uncertain etiology. Initially treated with IV fluids, lipase trended down as well as abdominal pain and diet was advanced. Her triglycerides were low and she does not have any history of alcohol abuse. She is end-stage renal disease on hemodialysis which she required on day of admission due to fluid overload. She did have acute r espiratory failure with some hypoxia secondary to missing dialysis. She was now back to her baseline and can continue her regular dialysis schedule. She reported some constipation but had a bowel movement on 05/31/2024. She should continue her bowel regimen at home. Hypertension. Continue Coreg, clonidine, hydralazine and Norvasc Diabetes mellitus type 2 diet controlled GERD. Continue PPI Opiate dependence. Continue Suboxone Time Attestation Discharge Coordination Time (in mins): 39 Quality: Safe Use of Opioids Does Pt have an Active Cancer Diagnosis on the Problem List?: No Quality: Stroke Does the patient have a stroke diagnosis?: No Physical Exam Vital Signs: Vital Signs: Last Vital Signs Temp 97.2 F 06/04/24 11:06 Pulse 59 06/04/24 11:06 Resp 18 06/04/24 11:06 BP 143/66 H 06/04/24 11:06 Pulse Ox 96 06/04/24 11:06 O2 Del Method Room Air 06/04/24 11:06 FiO2 25 05/29/24 19:53 BMI result Body Mass Index 28.8 Appearing in no acute distress head is normocephalic atraumatic eyes pupils are PERRLA sclera is anicteric mouth throat mucous membranes are intact and moist neck is supple no lymphadenopathy, no JVD noted lung sounds are clear to auscultation heart regular rate rhythm, clear S1, S2 positive bowel sounds, abdomen is soft, nontender neuro patient is alert x3, no focal deficits DS: Data Data Completed and Pending Completed studies during hospitalization [Text1]: Procedures Assistance with Respiratory Ventilation, Less than 24 Consecutive Hours, Continuous Positive Airway Pressure (05/21/24) Excision of Left Kidney, Percutaneous Approach, Diagnostic (02/25/21) Excision of Right Kidney, Percutaneous Approach, Diagnostic (10/22/20) Fluoroscopy of Superior Vena Cava using Low Osmolar Contrast, Guidance (08/07/22) Insertion of Endotracheal Airway into Trachea, Via Natural or Artificial Opening (10/12/21) Insertion of Infusion Device into Right Atrium, Percutaneous Approach (08/07/22) Insertion of Infusion Device into Superior Vena Cava, Percutaneous Approach (04/17/23) Insertion of Tunneled Vascular Access Device into Chest Subcutaneous Tissue and Fascia, Percutaneous Approach (04/17/23) Performance of Urinary Filtration, Intermittent, Less than 6 Hours Per Day (05/21/24) Removal of Totally Implantable Vascular Access Device from Trunk Subcutaneous Tissue and Fascia, Open Approach (08/07/22) Respiratory Ventilation, 24-96 Consecutive Hours (10/12/21) Transfusion of Nonautologous Red Blood Cells into Peripheral Vein, Percutaneous Approach (02/25/21) Ultrasonography of Superior Vena Cava, Guidance (04/17/23) Labs on day of discharge: Laboratory Results - last 24 hr 06/01/24 06/03/2425 06:20 14:10 15:05 WBC 5.2 RBC 3.42 L Hgb 11.3 L Hct 33.7 L MCV 98.5 H MCH 33.0 MCHC 33.5 RDW 14.9 Plt Count 208 MPV 10.2 Absolute Nucleated RBC 0.000 Nucleated RBC % (auto) 0.0 Hold Purple Top Sodium 129 L Potassium 3.9 Chloride 100 Carbon Dioxide 20 L Anion Gap 13 BUN 11 Creatinine 3.33 H Estim Creat Clear Calc 14.4 Estimated GFR 14 POC Glucose 205 H Random Glucose 223 H Calcium 8.8 Lipase 46 IgG Total 765 IgG Subclass 1 494 IgG Subclass 2 116 L IgG Subclass 3 72 IgG Subclass 4 34.6 06/03/24 06/03/24 06/03/24 16:17 16:48 19:07 WBC RBC Hgb Hct MCV MCH MCHC RDW Plt Count MPV Absolute Nucleated RBC Nucleated RBC % (auto) Hold Purple Top Sodium Potassium Chloride Carbon Dioxide Anion Gap BUN Creatinine Estim Creat Clear Calc Estimated GFR POC Glucose 201 H 164 H 111 Random Glucose Calcium Lipase IgG Total IgG Subclass 1 IgG Subclass 2 IgG Subclass 3 IgG Subclass 4 06/03/24 06/04/24 06/04/24 20:17 06:51 07:51 WBC RBC Hgb Hct MCV MCH MCHC RDW Plt Count MPV Absolute Nucleated RBC Nucleated RBC % (auto) Hold Purple Top SEE NOTE Sodium 131 L Potassium 5.0 D Chloride 100 Carbon Dioxide 21 L Anion Gap 15 BUN 24 H Creatinine 4.81 H* Estim Creat Clear Calc 9.9 Estimated GFR 9 POC Glucose 114 137 H Random Glucose 130 H Calcium 9.2 Lipase IgG Total IgG Subclass 1 IgG Subclass 2 IgG Subclass 3 IgG Subclass 4 06/04/24 10:59 WBC RBC Hgb Hct MCV MCH MCHC RDW Plt Count MPV Absolute Nucleated RBC Nucleated RBC % (auto) Hold Purple Top Sodium Potassium Chloride Carbon Dioxide Anion Gap BUN Creatinine Estim Creat Clear Calc Estimated GFR POC Glucose 183 H Random Glucose Calcium Lipase IgG Total IgG Subclass 1 IgG Subclass 2 IgG Subclass 3 IgG Subclass 4 Discharge Plan Discharge Anticipated Discharge Date/Time: 06/04/24 11:24 Patient Disposition: Home Health Service Discharge Diagnosis: Acute pancreatitis Acute respiratory failure with hypoxia Referrals: [facility] [Outside] - 1 Week Sammy Vicente MD [Primary Care Provider] - 1 Week Discharge Medications: Continued pantoprazole 40 mg Tablet,Delayed Release (Dr/Ec) 40 mg PO DAILY@0630 melatonin 5 mg Tablet 5 mg PO BEDTIME PRN (Reason: Sleep) aspirin 81 mg tablet,delayed release (DR/EC) 1 tab PO DAILY albuterol sulfate [Ventolin HFA] 90 mcg/actuation HFA aerosol inhaler 2 puff INHALATION Q4H PRN (Reason: wheezing) ondansetron 4 mg tablet,disintegrating 4 mg PO BID PRN (Reason: nausea and vomiting) albuterol sulfate 2.5 mg /3 mL (0.083 %) solution for nebulization 1 amp inhalation TID PRN (Reason: Shortness Of Breath) isosorbide dinitrate 30 mg Tablet 30 mg PO TID Rx Instructions: allow nitrate-free interval of 12-14 hrs per 24-hr period Elle-Sharifa Rx 1-60-300 mg-mg-mcg tablet 1 tab PO DAILY buprenorphine-naloxone 12-3 mg film 1 film sublingual DAILY Lokelma 10 gram powder in packet 10 g PO MOWEFR@0900 amlodipine 10 mg tablet 10 mg PO DAILY glucose 4 gram tablet,chewable 16 g PO Q15M PRN (Reason: hypoglycemia) calcium acetate(phosphat bind) 667 mg capsule 667 mg PO DAILY PRN (Reason: snack) hydrocortisone 2.5 % cream with perineal applicator 1 appl OR BID PRN (Reason: pain) hydralazine 50 mg Tablet 50 mg PO TID Qty: 270 0RF Protocol: Hold for SBP< HOLD for SBP < : 90 clonidine HCl 0.1 mg tablet 0.1 mg PO TID mirtazapine 15 mg tablet 15 mg PO BEDTIME calcium acetate(phosphat bind) 667 mg capsule 1,334 mg PO TIDWM lactulose 10 gram/15 mL solution 20 g PO DAILY PRN (Reason: constipation) nicotine 14 mg/24 hr patch 24 hour 1 patch topical DAILY acetaminophen 500 mg tablet 500 mg PO TID PRN (Reason: Pain) carvedilol 25 mg tablet 25 mg PO BID trazodone 50 mg tablet 50 mg PO BEDTIME PRN (Reason: Insomnia) Discharge Orders: Discharge Order (Routine); Ordered 06/04/24 Ordered By: Angelica Ashby Diet: Advance to usual diet Activity on Discharge: As tolerated Stand Alone Forms: Patient Portal Discharge page Print Language: Estonian Care Plan Goals: Follow regular dialysis schedule Health Concerns: Acute pancreatitis Acute respiratory failure with hypoxia Plan of Treatment: Follow-up with primary care provider as needed Take all medications as prescribed Assessment: See discharge summary Discharge Date/Time: 06/04/24 14:06
[2024-06-04] MEDS: Insulin Lispro 100 UNIT/ML 3 ML VIAL SUBCUT (12:03)
== END 2024-06-04 14:06 | disposition home health service (06) | DRG 640 ==
LOC: HO.ED 12:31 → HO.EDOVER 13:49 → HO.ICU 14:01 → HO.IMC 05-30 01:11
PROVIDERS: Internal Medicine Gastroenterology; Physician Assistant; Physician Assistant Medical; Admitting Provider Internal Medicine Critical Care Medicine; Emergency Provider Emergency Medicine; PCP Internal Medicine; Visit Provider Nurse Practitioner Acute Care
DX: E87.70 Fluid overload, unspecified (principal); J81.0 Acute pulmonary edema; K85.90 Acute pancreatitis without necrosis or infection, unspecified; J96.01 Acute respiratory failure with hypoxia; N18.6 End stage renal disease; F11.20 Opioid dependence, uncomplicated; I42.2 Other hypertrophic cardiomyopathy; I13.11 Hypertensive heart and chronic kidney disease without heart failure, with stage 5 chronic kidney disease, or end stage renal disease; I16.0 Hypertensive urgency; E11.22 Type 2 diabetes mellitus with diabetic chronic kidney disease; J44.9 Chronic obstructive pulmonary disease, unspecified; I27.20 Pulmonary hypertension, unspecified; F17.210 Nicotine dependence, cigarettes, uncomplicated; K59.00 Constipation, unspecified; Z71.6 Tobacco abuse counseling; F32.A Depression, unspecified; E87.5 Hyperkalemia; Z99.2 Dependence on renal dialysis; Z91.158 Patient's noncompliance with renal dialysis for other reason; Z20.822 Contact with and (suspected) exposure to COVID-19; Z79.899 Other long term (current) drug therapy
CPT/HCPCS: 0241U; 36415; 71045; 74176; 76700; 80048; 80076; 82784; 82803; 82947; 83605; 83690; 83735; 83880; 84100; 84478; 84484; 85025; 85027; 85610; 90999; 93005; 94640; 97162; 99285; J0613; J1644; J1940; J2270; J2404; J2405; J2470

== ENCOUNTER → 2024-05-29 10:44 | Outpatient (BNV) | payer OTHER, SELFPAY | PROVIDERS: Admitting Provider Internal Medicine Critical Care Medicine; Emergency Provider Emergency Medicine; PCP Internal Medicine; Visit Provider Internal Medicine | DX: R94.31 Abnormal electrocardiogram [ECG] [EKG] (principal) | CPT/HCPCS: 93010 ==

== ENCOUNTER → 2024-05-29 10:44 | Outpatient (BNV) | payer OTHER, SELFPAY | PROVIDERS: Emergency Provider Emergency Medicine; PCP Internal Medicine; Visit Provider Radiology Diagnostic Radiology | DX: R06.02 Shortness of breath (principal) | CPT/HCPCS: 71045 ==

== ENCOUNTER 2024-05-29 13:48 | Outpatient (BNV) | payer OTHER, SELFPAY | END 2024-06-01 09:23 | PROVIDERS: Admitting Provider Internal Medicine Critical Care Medicine; Emergency Provider Emergency Medicine; PCP Internal Medicine; Visit Provider Specialist | DX: R10.9 Unspecified abdominal pain (principal) | CPT/HCPCS: 76700 ==

== ENCOUNTER 2024-05-29 13:48 | Outpatient (BNV) | payer OTHER, SELFPAY | END 2024-05-30 10:13 | PROVIDERS: Admitting Provider Internal Medicine Critical Care Medicine; Emergency Provider Emergency Medicine; PCP Internal Medicine; Visit Provider Radiology Diagnostic Radiology | DX: R10.9 Unspecified abdominal pain (principal) | CPT/HCPCS: 74176 ==

== ENCOUNTER → 2024-05-29 13:48 | Outpatient (BNV) | payer OTHER, SELFPAY | PROVIDERS: Admitting Provider Internal Medicine Critical Care Medicine; Emergency Provider Emergency Medicine; PCP Internal Medicine; Visit Provider Internal Medicine Gastroenterology | DX: K85.90 Acute pancreatitis without necrosis or infection, unspecified (principal) | CPT/HCPCS: 99499 ==

== ENCOUNTER → 2024-05-29 13:48 | Outpatient (BNV) | payer OTHER, SELFPAY | PROVIDERS: Admitting Provider Internal Medicine Critical Care Medicine; Emergency Provider Emergency Medicine; PCP Internal Medicine; Visit Provider Internal Medicine Critical Care Medicine | DX: E11.9 Type 2 diabetes mellitus without complications (principal); I12.9 Hypertensive chronic kidney disease with stage 1 through stage 4 chronic kidney disease, or unspecified chronic kidney disease; E87.5 Hyperkalemia; N18.9 Chronic kidney disease, unspecified; J81.0 Acute pulmonary edema; J96.00 Acute respiratory failure, unspecified whether with hypoxia or hypercapnia; J81.1 Chronic pulmonary edema | CPT/HCPCS: 99223; 99499 ==

== ENCOUNTER → 2024-05-29 13:48 | Outpatient (BNV) | payer OTHER, SELFPAY | PROVIDERS: Admitting Provider Internal Medicine Critical Care Medicine; Emergency Provider Emergency Medicine; PCP Internal Medicine; Visit Provider Physician Assistant Medical | DX: J81.1 Chronic pulmonary edema (principal); K85.90 Acute pancreatitis without necrosis or infection, unspecified; J96.01 Acute respiratory failure with hypoxia; N18.6 End stage renal disease | CPT/HCPCS: 99232; 99233 ==

== ENCOUNTER 2024-06-16 13:04 | Outpatient (AMB) | payer OTHER, SELFPAY ==
--- NOTE | 2024-06-16 13:09 | MHC.OFFVIS ---
Vital Signs 06/16/24 13:16 Height 5 ft 1 in Weight 151 lb 6 oz BMI 28.6 Intake Visit Reasons: hemorrhoids, prolapse rectum Intake Note: This patient presents for hemorrhoids, prolapse rectum. Pt c/o; unable to sit, reports she feels a large lump in her rectum, daily rectal bleeding and discharge. Toxicology Teacher Required: Yes Toxicology Teacher Language: Automotive Airconditioning Mechanic Services: Toxicology Teacher Present Toxicology Teacher Name: Gypsy Information Interpreted: non-clinical & clinical Accompanied by: TERRITORY SERVICE REPRESENTATIVE Allergies No Known Allergies Allergy (Verified 06/16/24 13:17) Medication List - Last Reconciled 06/16/24 by Edmundo Luis MD acetaminophen 500 mg PO TID PRN albuterol sulfate 90 mcg/actuation (Ventolin HFA) 2 puffs inhalation Q4H PRN albuterol sulfate 1 amp inhalation TID PRN amlodipine 10 mg PO DAILY aspirin 1 tab PO DAILY buprenorphine-naloxone 12-3 mg 1 film sublingual DAILY calcium acetate(phosphat bind) 1,334 mg PO TIDWM calcium acetate(phosphat bind) 667 mg PO DAILY PRN carvedilol 25 mg PO BID clonidine HCl 0.1 mg PO TID glucose 16 grams PO Q15M PRN hydralazine 50 mg See Protocol PO TID hydrocortisone 2.5% 1 appl AK BID PRN isosorbide dinitrate 30 mg PO TID lactulose 20 grams PO DAILY PRN melatonin 5 mg PO BEDTIME PRN mirtazapine 15 mg PO BEDTIME nicotine 1 patch topical DAILY ondansetron 4 mg PO BID PRN pantoprazole 40 mg PO DAILY@0630 sodium zirconium cyclosilicate (Lokelma) 10 grams PO MOWEFR@0900 trazodone 50 mg PO BEDTIME PRN vit B comp no.8-twyac-V-biotin 1-60-300 mg-mg-mcg (Elle-Sharifa Rx) 1 tab PO DAILY HPI HPI hemorrhoids, prolapse rectum: Details: [age] year old female multiple medical problems including cardiomyopathy, end-stage renal disease on hemodialysis, here for rectal prolapse she I have actually seen her last year for what appeared to be mucosal prolapse and hemorrhoidal prolapse. I had prescribed her Metamucil then. However, she says that her prolapse has been progressively getting worse the past several months. She says that this causes pain whenever the prolapse occurs. She says that she often has to reduce the rectal prolapse in bed She also would notice some blood once in a while She has had multiple admissions for shortness of breath, and electrolyte problems recently. This is likely due to her poor compliance with regards to her hemodialysis. She ambulates with a walker and has poor exercise tolerance. [facility] Medical History Chronic renal failure Essential hypertension ESRD (end stage renal disease) on dialysis Diabetes mellitus Hemorrhoids that prolapse with straining, but retract spontaneously Hemorrhoids with complication ESRD on dialysis Delirium Sepsis Tachycardia Leukocytosis Fever End stage chronic kidney disease Congestive heart failure with left ventricular dysfunction ESRD (end stage renal disease) Hypertension Pulmonary congestion COVID-19 virus infection Asthma with COPD with exacerbation COVID ESRD (end stage renal disease) Hypertrophic cardiomyopathy Acute exacerbation of chronic obstructive pulmonary disease (COPD) Heart failure with preserved ejection fraction Constipation End stage renal disease on dialysis Ascites Anasarca Ischemic colitis Acute GI bleeding Anemia Dialysis patient, noncompliant Anemia in chronic kidney disease Opioid withdrawal Essential hypertension Surgical History No pertinent past surgical history Family History Other Hypertension Social History Household Members: Family Housing: Apartment Do you presently have visiting nurse or other home services: Yes (vna) Unable to assess alcohol history related to: Unknown Alcohol intake: former Comment: pt in dialysis at this time. Patient Tobacco Use Status: Current everyday Tobacco user Tobacco use type: Cigarette Cigarette Packs Per Day: 2 Cigarettes Per Day: 1 Years Smoked: 50 +/- e-Cigarette/Vaping Use: Never Used Second Hand Smoke Exposure: No Substance Use Type: Marijuana Advance Directives Date on File: 04/19/23 service: No Current occupational status: disabled Review of Systems Const Denies chills and Denies fever(s) Card Denies chest pain, Reports dyspnea and Reports dyspnea on exertion Resp Denies cough, Reports dyspnea and Reports dyspnea on exertion GI Denies hematochezia and Denies change in bowel habits Details: On hemodialysis Denies hematuria Musc Denies back pain and Denies limited range of motion Neuro Denies focal weakness and Denies convulsions Psych Denies depression and Denies mood swings Physical Exam Vital Signs: BMI result Body Mass Index 28.6 Const Other: Frail looking, using a walker General: comfortable and no acute distress Orientation/consciousness: patient oriented x3 Neck Neck: Yes no lymphadenopathy Resp Auscultation: clear to auscultation bilaterally Cardio Rhythm: regular rhythm GI Other: Rectal exam shows full rectal prolapse, about 4 cm, reducible easily, lax sphincter tone Palpation (GI): Soft to palpation, nontender and no guarding Neuro General: patient oriented x3 Assessment & Plan Assessment & Plan (1) Rectal prolapse: Code(s): K62.3 - Rectal prolapse Category: Medical Plan: She has a full rectal prolapse as described above. This is easily reducible. She has a very lax sphincter tone She does have multiple medical problems and has significant cardiomyopathy. She says that she had a recent WI as well and had been admitted to the hospital multiple times because of electrolyte problems and shortness of breath. She is apparently had very compliant with her hemodialysis. In view of her multiple comorbid conditions, and complex problems, I am going to refer her to [facility] to be evaluated for opinion with regards to best management of her full rectal prolapse. I told her that I will assist her with this She understands the plan and is comfortable with this. She has continued to take Metamucil at least twice a day. Coding Level of Care Code Est Pt Level 3 (77830) Diagnoses Rectal prolapse K62.3
[2024-06-16 13:16] VITALS: BMI 28.6
--- OUTSIDE RECORDS SUMMARY | 2024-06-16 17:41 | XMS_ITS | Encounter Summary ---
Author Organization [employer] Address [address] [place] [address] Care Team Providers Care Pharmaceutical Representative Name Role Phone Sammy Reilly MD Primary Care Provide r Reason for Visit * Reason Comments Med Refill Encounter Details Date Type Department Care Team ([facility] st Contact Info) Description 05/02/2023 Refill [facility] MEDICINE [address], [place] [phone] Messi Mccollum MD [address] [place], [place] [phone] Uncomplicated opioid dependence (CMS/HCC) Social History Tobacco Use Types Packs/Day Years Used Date Smoking Tobacco: Every Day Cigarettes Passive Smoke Exposure: Current Smokeless Tobacco: Never Alcohol Use Standard Drinks/Week Comments Not Currently 0 (1 standard drink = 0.6 oz pur e alcohol) Depression Answer Date Recorded Patient Health Questionnaire-9 Score 11 10/03/2022 Housing Stability Answer Date Recorded What is your housing situation today? I have johnnie paredes 03/05/[address] you li ve. Do you have problems with any of the following? None of the above 03/05/2023 Food Insecurity Answer Date Recorded Within the past 12 months, y ou worried that your food would run out before you got money to buy more: Never True 03/05/2023 Within the past 12 months,th e food you bought just didn't last and you didn't have enough money to get more: Never True Transportation Answer Date Recorded In the past 12 months, has l ack of transportation kept you from medical appts, meetings, work or from getting things needed for daily living? No 03/05/2023 Utilities Answer Date Recorded In the past 12 months, has t he electric, gas, oil or water company threatened to shut off services in your home? No 03/05/2023 Depression Answer Date Recorded Patient Health Questionnaire-2 Score 4 10/03/2022 Comments Unknown Sex and Gender Information Value Date Recorded Sex Assigned at Female 03/20/2022 10:15 AM EDT Legal Sex Female 10:15 AM EDT Gender Identity Female 03/20/2022 10:15 AM EDT Sexual Orientation Straight 03/20/2022 10 :15 AM EDT documented as of this encounter Plan of Treatment Upcoming Encounters Date Type Department Care Team (Late st Contact Info) Description 06/20/2024 10:00 AM EST Office Visit [facility] MEDICINE [address], [place] [phone] Messi Mccollum MD [address], [place] [phone] documented as of this encounter Goals Goal Patient Goal Type Associated Problems Recent Progress Patient-Stated? Author Check and record your blood sugars as directed Blood Pressure No Jimbo Burris PharmD Short-term: Promote adherence to treatment regimen General No Jimbo Burris, PharmD Take your medication every day Lifestyle No Jimbo Burris PharmD documented as of this encounter Visit Diagnoses Diagnosis Uncomplicated opioid dependence (CMS/HCC) documented in this encounter Additional Health Concerns Assessment Noted Time PHQ-9 Depression Total Score: 11 023 9:59 AM EDT documented as of this encounter Care Teams Pharmaceutical Representative Relationship Specialty Start Date End Date Sammy Reilly MD [address], [place] [phone] PCP - General Internal Medicine 12/23/13 [employer] 04/08/22 Tj Larose MD Workers Compensation Claims Supervisor Nephrology 04/10/24 documented as of this encounter
--- OUTSIDE RECORDS SUMMARY | 2024-06-16 17:41 | XMS_ITS | Encounter Summary ---
Author Organization [employer] Address [address] [facility] [facility] [address] [place] [address] Care Team Providers Care Development Planner Name Role Phone Sammy Reilly MD Primary Care Provide r Reason for Visit * Reason Comments Med Refill Encounter Details Date Type Department Care Team ([facility] Contact Info) Description 02/09/2023 Refill [facility] MEDICINE [address] [place] [address] [phone] Lois Garrett MD [address] [place] [phone] Primary insomnia Social History Tobacco Use Types Packs/Day Years Used Date Smoking Tobacco: Every Day Cigarettes Passive Smoke Exposure: Current Smokeless Tobacco: Never Alcohol Use Standard Drinks/Week Comments Not Currently 0 (1 standard drink = 0.6 oz pur e alcohol) Depression Answer Date Recorded Patient Health Questionnaire-9 Score 11 10/03/2022 Depression Answer Date Recorded Patient Health Questionnaire-2 Score 4 10/03/2022 Comments Unknown Sex and Gender Information Value Date Recorded Sex Assigned at Female 03/20/2022 10:15 AM EDT Legal Sex Female 10:15 AM EDT Gender Identity Female 03/20/2022 10:15 AM EDT Sexual Orientation Straight 03/20/2022 10 :15 AM EDT documented as of this encounter Plan of Treatment Upcoming Encounters Date Type Department Care Team ([facility] Contact Info) Description 06/20/2024 10:00 AM EST Office Visit [facility] MEDICINE [address] [place] [phone] Messi Mccollum MD [address] [place], [place] [phone] documented as of this encounter Goals Goal Patient Goal Type Associated Problems Recent Progress Patient-Stated? Author Check and record your blood sugars as directed Blood Pressure No Jimbo Burris PharmD Short-term: Promote adherence to treatment regimen General No Jimbo Burris PharmD Take your medication every day Lifestyle No Jimbo Burris PharmD documented as of this encounter Visit Diagnoses Diagnosis Primary insomnia Persistent disorder of initiating or maintaining sleep documented in this encounter Additional Health Concerns Assessment Noted Time PHQ-9 Depression Total Score: 11 023 9:59 AM EDT documented as of this encounter Care Teams Development Planner Relationship Specialty Start Date End Date Sammy Reilly MD [address] [place] [id number] PCP - General Internal Medicine 12/23/13 [employer] 04/08/22 Tj Larose MD Strainer Cleaner Nephrology 04/10/24 documented as of this encounter
--- OUTSIDE RECORDS SUMMARY | 2024-06-16 17:41 | XMS_ITS | Encounter Summary ---
Author Organization [employer] Address [address] [facility] [address] [place] [address] Care Team Providers Care Quality Assurance Manager Name Role Phone Sammy Reilly MD Primary Care Provide r Reason for Visit * Reason Comments Med Refill Encounter Details Date Type Department Care Team ([facility] st Contact Info) Description 04/25/2023 Refill [facility] MEDICINE [address], [place] [phone] Messi Mccollum MD [address] [place], [place] [phone] Uncomplicated opioid dependence (CMS/HCC) Social History Tobacco [...] Description 06/20/2024 10:00 AM EST Office Visit [facility] MEDICINE [address] [place], [place] [phone] Messi Mccollum MD [address] [place], [place] [phone] documented as of this encounter Goals Goal [...] documented as of this encounter Care Teams Quality Assurance Manager Relationship Specialty Start Date End Date Sammy Reilly MD [address] [place], [place] [phone] PCP - General Internal Medicine 12/23/13 [employer] 04/08/22 Tj Larose MD Grinder Mill Operator Nephrology 04/10/24 documented as of this encounter
--- OUTSIDE RECORDS SUMMARY | 2024-06-16 17:41 | XMS_ITS | Encounter Summary ---
Author Organization [employer] Address [address] [facility] [address] [place] [address] Care Team Providers Care Color Straining Bag Washer Name Role Phone Sammy Reilly MD Primary Care Provide r Encounter Details Date Type Department Care Team (Late st Contact Info) Description 05/08/2022 Orders Only [facility] [address] [place] [address] Swetha Ribera LPN Social History Tobacco Use Types Packs/Day Years Used Date Smoking Tobacco: Never Assessed Comments Unknown Sex and Gender Information Value [...] 10:00 AM EST Office Visit [facility] MEDICINE [address] [place] [address] Messi Mccollum MD [address] [place] [phone] documented as of this encounter Visit Diagnoses Not on filedocumented in this encounter Care Teams Color Straining Bag Washer Relationship Specialty Start Date End Date Sammy Reilly MD [address] [place] [id number] PCP - General Internal Medicine 12/23/13 [employer] 04/08/22 Tj Larose MD Substation Operator Automatic Nephrology 04/10/24 documented as of this encounter
--- OUTSIDE RECORDS SUMMARY | 2024-06-16 17:41 | XMS_ITS | Encounter Summary ---
Author Organization [employer] Address [address] [place] [address] Care Team Providers Care Manager Managed Backup Services Name Role Phone Sammy Reilly MD Primary Care Provide r Reason for Visit * Reason Comments Med Refill Encounter Details Date Type Department Care Team ([facility] st Contact Info) Description 04/25/2023 Refill [facility] [address] [place], [place] [phone] Name, MD Tye [address] [place], [place] [phone] Hypertension secondary to other renal disorders; Primary insomnia Social History Tobacco Use Types [...] Description 06/20/2024 10:00 AM EST Office Visit [facility] [address] [place], [place] [phone] Messi Mccollum MD [address] [place], [place] [phone] documented as of this encounter Goals Goal Patient Goal Type Associated Problems Recent Progress Patient-Stated? 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
--- OUTSIDE RECORDS SUMMARY | 2024-06-16 17:41 | XMS_ITS | Encounter Summary ---
Author Organization [employer] Address [address] [place] [address] Care Team Providers Care Radial Drill Press Operator For Plastic Name Role Phone Sammy Reilly MD Primary Care Provide r Reason for Visit * Reason Comments Med Refill Encounter Details Date Type Department Care Team ([facility] st Contact Info) Description 04/25/2023 Refill [facility] [address] [place], [place] [phone] Neptali Coles MD [address] [place], [place] [phone] Social History Tobacco Use Types Packs/Day Years [...] Description 06/20/2024 10:00 AM EST Office Visit [facility] [address] [place], [place] [phone] Messi Mccollum MD [address] [place] [address] documented as of this encounter Goals Goal [...] Diagnoses Not on filedocumented in this encounter Additional Health Concerns Assessment Noted Time PHQ-9 Depression Total Score: 11 023 9:59 AM EDT documented as of this encounter Care Teams Radial Drill Press Operator For Plastic Relationship Specialty Start Date End Date Sammy Reilly MD [address] [place] [id number] PCP - General Internal Medicine 12/23/13 [employer] 04/08/22 Tj Larose MD [facility] 04/10/24 documented as of this encounter
--- OUTSIDE RECORDS SUMMARY | 2024-06-16 17:41 | XMS_ITS | Encounter Summary ---
Author Organization [employer] Address [address] [facility] [place] [address] Care Team Providers Care Shoe Caser Name Role Phone Sammy Reilly MD Primary Care Provide r Reason for Visit * Reason Comments Med Refill Encounter Details Date Type Department Care Team (Late st Contact Info) Description 05/05/2022 Refill [facility] [address] [place], [place] [phone] Margarita Rob, ANP [address] [place], [place] [phone] Chronic obstructive pulmonary disease, unspecified COPD type (CMS/HCC) (Primary Dx) Social History Tobacco Use Types Packs/Day Years Used Date Smoking Tobacco: Never Assessed Comments Unknown Sex and Gender Information Value Date Recorded Sex Assigned at Female 03/20/2022 10:15 AM EDT Legal Sex Female 10:15 AM EDT Gender Identity Female 03/20/2022 10:15 AM EDT Sexual Orientation Straight 03/20/2022 10 :15 AM EDT documented as of this encounter Miscellaneous Notes * Telephone Encounter - Sammy Whitehead MD - 05/09/2022 4:07 PM EST Approving, but needs appt for additional refills. documented in this encounter Plan of Treatment Upcoming Encounters Date Type Department Care Team (Late st Contact Info) Description 06/20/2024 10:00 AM EST Office Visit [facility] [address] [place], [place] [phone] Messi Mccollum MD [address] [place] [phone] documented as of this encounter Visit Diagnoses Diagnosis Chronic obstructive pulmonary disease, unspecified COPD type (CMS/HCC)- Primary documented in this encounter Care Teams Shoe Caser Relationship Specialty Start Date End Date Sammy Reilly MD [address] [place] [phone] PCP - General Internal Medicine 12/23/13 [employer] 04/08/22 Tj Larose MD [employer] [facility] 04/10/24 documented as of this encounter
--- OUTSIDE RECORDS SUMMARY | 2024-06-16 17:41 | XMS_ITS | Encounter Summary ---
Author Organization [employer] Address [address] [place] [address] Care Team Providers Care Station Supervisor Name Role Phone Sammy Reilly MD Primary Care Provide r Reason for Visit * Reason Comments Med Refill Encounter Details Date Type Department Care Team ([facility] st Contact Info) Description 11/21/2023 Refill [facility] PEDS [address] [place], [place] [phone] Sammy Reilly MD [address] [facility] [phone] Chronic obstructive pulmonary disease, unspecified COPD type (CMS/HCC) Social History Tobacco Use Types Packs/Day Years Used Date Smoking Tobacco: Some Days Cigarettes 0.3 1.1 Started: 2023 Passive Smoke Exposure: Current Smokeless Tobacco: Never Alcohol Use Standard Drinks/Week Comments Not Currently 0 (1 standard drink = 0.6 oz pur e alcohol) Depression Answer Date Recorded Patient Health Questionnaire-9 Score 11 10/18/2023 Patient Health Questionnaire-9 Score 11 10/18/2023 Last PHQ-9: Questionnaire Data Not on file 0 10/18/2023 Housing Stability Answer Date Recorded What is your housing situation today? I have johnnie paredes 10/18/[address] you li ve. Do you have problems with any of the following? None of the above 10/18/2023 Food Insecurity Answer Date Recorded Within the past 12 months, y ou worried that your food would run out before you got money to buy more: Never True 10/18/2023 Within the past 12 months,th e food you bought just didn't last and you didn't have enough money to get more: Never True Transportation Answer Date Recorded In the past 12 months, has l ack of transportation kept you from medical appts, meetings, work or from getting things needed for daily living? No 10/18/2023 Utilities Answer Date Recorded In the past 12 months, has t he electric, gas, oil or water company threatened to shut off services in your home? No 10/18/2023 Depression Answer Date Recorded Patient Health Questionnaire-2 Score 3 10/18/2023 Comments Unknown Sex and Gender Information Value [...] Description 06/20/2024 10:00 AM EST Office Visit [facility] MEDICINE [address] [place] [phone] Messi Mccollum MD [address] [place] [phone] documented as of this encounter Goals Goal [...] obstructive pulmonary disease, unspecified COPD type (CMS/HCC) documented in this encounter Additional Health Concerns Assessment Noted Time PHQ-9 Depression Total Score: 11 024 9:25 AM EDT documented as of this encounter Care Teams Station Supervisor Relationship Specialty Start Date End Date Sammy Reilly MD [address] [place] [phone] PCP - General Internal Medicine 12/23/13 [employer] 04/08/22 Tj Larose MD [employer] 04/10/24 documented as of this encounter
--- OUTSIDE RECORDS SUMMARY | 2024-06-16 17:41 | XMS_ITS | Encounter Summary ---
Author Organization [employer] Address [address] [facility] 7[address] [place] [address] Care Team Providers Care Crusher Feeder Name Role Phone Sammy Reilly MD Primary Care Provide r Reason for Visit * Reason Comments Med Refill Encounter Details Date Type Department Care Team (Late Contact Info) Description 02/12/2023 Refill [facility] [address] [place] [phone] Margarita Rob ANP [address] [place], [place] [phone] Social History Tobacco Use Types Packs/Day Years [...] Encounters Date Type Department Care Team (Late Contact Info) Description 06/20/2024 10:00 AM EST Office Visit [facility] [address] [place], [place] [phone] Messi Mccollum MD [address] [place], [place] [phone] documented as of this encounter Goals Goal Patient Goal Type Associated Problems Recent Progress Patient-Stated? Author Check and record your blood sugars as directed Blood Pressure No Jimbo Burris PharmD Short-term: Promote adherence to treatment regimen General No Jimbo Burris PharmD Take your medication every day Lifestyle No Jimbo Burrsi PharmD documented as of this encounter Visit Diagnoses Not on filedocumented in this encounter Additional Health Concerns Assessment Noted Time PHQ-9 Depression Total Score: 11 023 9:59 AM EDT documented as of this encounter Care Teams Crusher Feeder Relationship Specialty Start Date End Date Sammy Reilly MD [address] [place] [id number] PCP - General Internal Medicine 12/23/13 [employer] 04/08/22 Tj Larose MD [employer] 04/10/24 documented as of this encounter
--- OUTSIDE RECORDS SUMMARY | 2024-06-16 17:42 | XMS_ITS | Encounter Summary ---
Author Organization [email or web address] Address [address] [place] [address] Care Team Providers Care Visual Coordinator Name Role Phone Sammy Reilly MD Primary Care Provide r Encounter Details Date Type Department Care Team ([facility] Contact Info) Description 05/29/2024 Orders Only GENERIC EXTERNAL DATA DEPARTMENT Provider, Generic External Data Social History Tobacco Use Types Packs/Day Years Used Date Smoking Tobacco: Some Days Cigarettes 0.3 1.1 Started: 2023 Passive Smoke Exposure: Current Smokeless Tobacco: Never Alcohol Use Standard Drinks/Week Comments Not Currently 0 (1 standard drink = 0.6 oz pur e alcohol) Alcohol Answer Date Recorded Frequency of Alcohol Consumption Not on file 03/11/2024 Average Number of Drinks Not on file 024 Frequency of Binge Drinking Not on file 02/19 Score 0 03/11/2024 Depression Answer Date Recorded Patient Health Questionnaire-9 [...] Patient Health Questionnaire-2 Score 3 10/18/2023 Comments No Sex and Gender Information Value Date Recorded [...] 10:00 AM EST Office Visit [facility] [address], [place] [phone] Messi Mccollum MD [address] [place], [place] [phone] documented as of this encounter Goals Goal Patient Goal Type Associated Problems Recent Progress Patient-Stated? Author Check and record your blood sugars as directed Blood Pressure No Jimbo Burris PharmD Short-term: Promote adherence to treatment regimen General No Jimbo Burris PharmD Take your medication every day Lifestyle No Jimbo Burris PharmD documented as of this encounter Procedures Procedure Name Priority Date/Time Associated Diagnosis Comments US ABDOMEN COMPLETE Routine 06/01/2024 9 :[address] ABDOMEN PELVIS WO CONTRAST Routine 05/30/2024 10:13 AM EST GLUCOSE, WHOLE BLOOD Routine 05/29/2024 12:31 PM EST VENOUS BLOOD GAS Routine 05/29/2024 11:0 2 AM EST XR CHEST 1 VIEW Routine 05/29/2024 10:44 AM EST documented in this encounter Results * US Abdomen Complete (06/01/2024 9:56 AM EST) Anatomical Region Laterality Modality Abdomen Ultrasound 06/01/2024 9:56 AM EST Narrative 06/01/2024 9:58 AM EST ? [facility] ?[address] ?[place], [place] [address] ? Ultrasound Report ? Signed ? Patient: Muller, Heidy ?MR#: [id number] ?? 460 ? : 1955 ?Acct:[id number] ? Age/Sex: 69 / F ?ADM Date: 05/29/24 ? Loc: [facility] ?482-1 ? Attending Dr: Hattie TAYLOR ? Ordering Physician: Hattie Govea ?? Date of Service: 06/01/24 ?? Procedure(s): US abdomen complete ?? Accession Number(s): [id number] ? cc: Hattie Govea; Sammy Vicente MD ? CLINICAL HISTORY: abdominal pain, pancreatitis, to be done on 06 01 per ordering ? US abdomen complete ? Comparison: None ? Findings: ?? The visualized pancreas is normal. ?? The aorta and inferior vena cava are normal caliber. ? The appearance of the liver suggests hepatic steatosis or nonspecific ?? hepatocellular pathology with no focal lesion.. ?? There is no intrahepatic bile duct dilatation. ?? The common duct is 5.0 mm in diameter. ?? The gallbladder is normal. There is no sonographic Luna sign. ?? The main portal vein is antegrade. ? The right kidney is 10.0 cm in length. ?? The left kidney is 9.2 cm in length. ?? The spleen is normal. ?? No ascites. ? IMPRESSION: ?? 1. Hepatic steatosis versus nonspecific hepatocellular pathology. ?? Correlate with clinical and laboratory findings ? This document has been electronically signed by: Nicolas Zarate MD on ?? 06/01/2024 09:56:23 ? Dictated By: ?Nicolas Zarate MD ? Signed By: ?<Electronically signed by Nicolas Zarate MD in OV> ?06/01/24 0957 ? DD/ 0956 ? TD/TT: 06/01/24 0956 ? State [employer] Deputy Director: ? Procedure Note Daniella Watson - 06/01/[address] [address] Ultrasound Report Signed Patient: Cruz MullerMR#: [id number] 460 : 6Acct:[id number] Age/Sex: 69 / FADM Date: 05/29/24 Loc: [facility] 482-[address]: Hattie TAYLOR Ordering Physician: Hattie Govea Date of Service: 06/01/24 Procedure(s): US abdomen complete Accession Number(s): [id number] cc: Hattie Govea; Sammy Vicente MD CLINICAL HISTORY: abdominal pain, pancreatitis, to be done on 06 01 perordering US abdomen complete Comparison: None Findings: The visualized pancreas is normal. The aorta and inferior vena cava are normal caliber. The appearance of the liver suggests hepatic steatosis or nonspecific hepatocellular pathology with no focal lesion.. There is no intrahepatic bile duct dilatation. The common duct is 5.0 mm in diameter. The gallbladder is normal. There is no sonographic Luna sign. The main portal vein is antegrade. The right kidney is 10.0 cm in length. The left kidney is 9.2 cm in length. The spleen is normal. No ascites. IMPRESSION: 1. Hepatic steatosis versus nonspecific hepatocellular pathology. Correlate with clinical and laboratory findings This document has been electronically signed by: Nicolas Zarate MD on 06/01/2024 09:56:23 Dictated By: Nicolas Zarate MD Signed By: <Electronically signed by Nicolas Zarate MD in OV> 06/01/24 0957 DD/ 5 TD/TT: 06/01/24955 State [employer] Deputy Director: us [facility] External Provider IMG US PROCEDURES Final Result * CT Abdomen Pelvis w/o Contrast (05/30/2024 10:13 AM EST) Anatomical Region Laterality Modality Body, Pelvis, Abdomen Computed T omography 05/30/2024 10:1 3 AM EST Narrative 05/30/2024 11:12 AM EST ? [facility] ?[address] ?[place] [address] ? CT Scan Report ? Signed ? Patient: Muller, Heidy ?MR#: [id number] ?? 460 ? : 1955 ?Acct:[id number] ? Age/Sex: 69 / F ?ADM Date: 05/29/24 ? Loc: [facility] ?482-1 ? Attending Dr: Hattie TAYLOR ? Ordering Physician: Hattie Govea ?? Date of Service: 05/30/24 ?? Procedure(s): CT abdomen pelvis wo IV con ?? Accession Number(s): [id number] ? cc: Hattie Govea; Sammy Vicente MD ? Report Number: ?? [id number]: Total DLP = ??466.00 mGy-cm ?? EXAMINATION: ?? CT ABDOMEN AND PELVIS WITHOUT CONTRAST ? CLINICAL INFORMATION: ?? Abdominal pain. ? COMPARISON: ?? CT dated February 18, 2024 ? TECHNIQUE: ?? Multidetector volumetric imaging was performed from the superior aspect ?? of the liver through the pubic symphysis. Sagittal and coronal ?? reformatted images were obtained on the technologist's workstation. ? This CT examination was performed using dose optimization techniques as ?? appropriate, variously including the following: ?? *Automated exposure control ?? *Adjustment of mA and/or kV according to patient size (this includes ?? techniques or standardized protocols for targeted exams where dose is ?? matched to indication/reason for exam; i.e. extremities or head) ?? *Use of iterative reconstruction technique. ?? DLP: 466 mGy centimeters ? FINDINGS: ? Limited evaluation of the intra-abdominal organs and vascular ?? structures due to lack of IV contrast. ?? LUNG BASES: Patchy groundglass in the periphery of the lung bases. ?? Subcentimeter subpleural nodules, lung bases. ?? Catheter-tipped in the right atrium region. ? LIVER, GALLBLADDER, AND BILIARY TREE: ? Liver measures 16 cm subtle nodular surface. ? Status post cholecystectomy. ?? No gross intrahepatic or extra hepatic biliary ductal dilatation. ? PANCREAS: ? Pancreatic edema pattern trace of edema into the left paracolic gutter. ?? No main pancreatic ductal dilatation. ? SPLEEN: 8 cm. ? ADRENAL GLANDS: No nodular lesions. ? KIDNEYS AND URETERS: ? Renal cortical thinning and small appearance of the kidneys. No gross ?? hydronephrosis. No gross nephrolithiasis. ?? 4 cm exophytic cystic lesion upper pole left kidney. ? BLADDER: Collapsed. ? GASTROINTESTINAL TRACT: ? Abundant stool within the large intestine. Residual contrast within the ?? large intestine and fundus of the stomach. ?? No intestinal obstruction pattern. ?? No ascites. ?? No pneumoperitoneum. ?? No pneumatosis intestinalis. ?? Appendix is normal. ? ABDOMINAL WALL: Diastases abdominal rectus muscles in the periumbilical ?? region and fat-containing umbilical hernia. ? LYMPH NODES: Nonspecific prominent lymph nodes, mesenteric and ?? retroperitoneal. ? VASCULAR: There is a 13 mm peripheral calcified vascular abnormality in ?? the right main renal artery. ?? Calcified plaques in the abdominal aorta wall and iliac arteries ?? without aneurysm. ?? Calcified plaques in the origin of the mesenteric arteries and main ?? renal arteries. ? PELVIC VISCERA: I do not see gross masses in the adnexa. ? OSSEOUS STRUCTURES: Multilevel thoracolumbar spondylosis. Grade 1 ?? anterolisthesis L4-5 resulting in bilateral neuroforamina stenosis. ?? Large Schmorl node in superior endplate of L3. Levoconvex rotoscoliosis ?? apex at L3. No acute fracture or dislocation in either hip. ? CT/CT abdomen pelvis wo IV con ?? IMPRESSION: ?? Concerning acute pancreatitis in the correct clinical settings of ?? iterative diagnosis of peptic ulcer disease. ?? Hepatomegaly and questionable hepatocellular disease. ?? 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 ?? Medical renal disease without hydronephrosis. ?? 4 cm cystic lesion, upper pole left kidney. ? Fleischner guidelines were followed. ? Electronically signed by: ??Sundar Lindsey MD ??05/30/2024 11:10 AM ?? EST RP ? Dictated By: ?Sundar Dupree MD ? Signed By: ?<Electronically signed by Sundar Bang MD in OV> ? 05/30/24 1110 ? DD/ 1013 ? TD/TT: 05/30/24 1045 ? State [employer] Deputy Director: ? Procedure Note Donotuseinterpreter, Image - 05/30/[address] [address] [address] Scan Report Signed Patient: Cruz MullerMR#: [id number] 460 : 6Acct:[id number] Age/Sex: 69 / FADM Date: 05/29/24 Loc: [facility] 482-[address]: Hattie TAYLOR Ordering Physician: Hattie Govea Date of Service: 05/30/24 Procedure(s): CT abdomen pelvis wo IV con Accession Number(s): [id number] cc: Hattie Govea; Sammy Vicente MD Report Number: [id number]: Total DLP = 466.00 mGy-cm EXAMINATION: CT ABDOMEN AND PELVIS WITHOUT CONTRAST CLINICAL INFORMATION: Abdominal pain. COMPARISON: CT dated February 18, 2024 TECHNIQUE: Multidetector volumetric imaging was performed from the superior aspect of the liver through the pubic symphysis. Sagittal and coronal reformatted images were obtained on the technologist's workstation. This CT examination was performed using dose optimization techniques as appropriate, variously including the following: *Automated exposure control *Adjustment of mA and/or kV according to patient size (this includes techniques or standardized protocols for targeted exams where dose is matched to indication/reason for exam; i.e. extremities or head) *Use of iterative reconstruction technique. DLP: 466 mGy centimeters FINDINGS: Limited evaluation of the intra-abdominal organs and vascular structures due to lack of IV contrast. LUNG BASES: Patchy groundglass in the periphery of the lung bases. Subcentimeter subpleural nodules, lung bases. Catheter-tipped in the right atrium region. LIVER, GALLBLADDER, AND BILIARY TREE: Liver measures 16 cm subtle nodular surface. Status post cholecystectomy. No gross intrahepatic or extra hepatic biliary ductal dilatation. PANCREAS: Pancreatic edema pattern trace of edema into the left paracolic gutter. No main pancreatic ductal dilatation. SPLEEN: 8 cm. ADRENAL GLANDS: No nodular lesions. KIDNEYS AND URETERS: Renal cortical thinning and small appearance of the kidneys. No gross hydronephrosis. No gross nephrolithiasis. 4 cm exophytic cystic lesion upper pole left kidney. BLADDER: Collapsed. GASTROINTESTINAL TRACT: Abundant stool within the large intestine. Residual contrast within the large intestine and fundus of the stomach. No intestinal obstruction pattern. No ascites. No pneumoperitoneum. No pneumatosis intestinalis. Appendix is normal. ABDOMINAL WALL: Diastases abdominal rectus muscles in the periumbilical region and fat-containing umbilical hernia. LYMPH NODES: Nonspecific prominent lymph nodes, mesenteric and retroperitoneal. VASCULAR: There is a 13 mm peripheral calcified vascular abnormality in the right main renal artery. Calcified plaques in the abdominal aorta wall and iliac arteries without aneurysm. Calcified plaques in the origin of the mesenteric arteries and main renal arteries. PELVIC VISCERA: I do not see gross masses in the adnexa. OSSEOUS STRUCTURES: Multilevel thoracolumbar spondylosis. Grade 1 anterolisthesis L4-5 resulting in bilateral neuroforamina stenosis. Large Schmorl node in superior endplate of L3. Levoconvex rotoscoliosis apex at L3. No acute fracture or dislocation in either hip. CT/CT abdomen pelvis wo IV con IMPRESSION: Concerning acute pancreatitis in the correct clinical settings of iterative diagnosis of peptic ulcer disease. Hepatomegaly and questionable hepatocellular disease. 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 Medical renal disease without hydronephrosis. 4 cm cystic lesion, upper pole left kidney. Fleischner guidelines were followed. Electronically signed by: Sundar Lindsey MD 05/30/2024 11:10 AM EST Dictated By: Sundar Dupree MD Signed By: <Electronically signed by Sundar Bang MDin OV> 05/30/24 1110 DD/ 1013 TD/TT: 05/30/24 1045 State [employer] Deputy Director: us [facility] External Provider IMG CT PROCEDURES Final Result * (ABNORMAL) Glucose, Whole Blood (05/29/2024 12:31 PM EST) Glucose, Whole Blood 318(H) 60 - 115 mg/dL [facility] Comment:METER #: [id number] 05/29/2024 12:3 1 PM EST 05/29/2024 12:44 PM EST us Generic External Data Provider LAB BLOOD ORDERAB LES Final Result Performing Organization Address [facility] Co de Phone Number [facility] [address] [place] [phone] * (ABNORMAL) VENOUS BLOOD GAS (05/29/2024 11:02 AM EST) VBG pH 7.32 7.32 - 7.43 [facility] Comment:METER #: [id number] additional_comment: Sergei diehl VBG PCO2 39 mmHg [facility] Comment:METER #: [id number] additional_comment: Sergei diehl VBG PO2 104 mmHg [facility] Comment:METER #: [id number] additional_comment: Cb fazal VBG Base Excess -4.9 mmol/L [facility] Comment:METER #: [id number] additional_comment: Sergei diehl VBG HCO3 20(L) 22 - 26 mmol/L [facility] Comment:METER #: [id number] additional_comment: Sergei diehl O2 Sat, Juan Jose 98.0 % [facility] Comment:METER #: [id number] additional_comment: Sergei diehl 05/29/2024 11:0 2 AM EST 05/29/2024 11:07 AM EST us Generic External Data Provider LAB BLOOD ORDERAB LES Final Result Performing Organization Address [facility] Co de Phone Number [facility] [address] [place] [phone] * XR Chest 1 View (05/29/2024 10:44 AM EST) Anatomical Region Laterality Modality Chest Radiographic Bety ging 05/29/2024 10:4 4 AM EST Narrative 05/29/2024 11:36 AM EST ? [facility] ?[address] ?[place] [address] ?XRay Report ? Signed ? Patient: Muller, Heidy ?MR#: [id number] ?? 460 ? : 1955 ?Acct:[id number] ? Age/Sex: 69 / F ?ADM Date: 05/29/24 ? Loc: HO.ED ? Attending Dr: ? Ordering Physician: Jessika Treadwell ?? Date of Service: 05/29/24 ?? Procedure(s): XR chest 1V ?? Accession Number(s): [id number] ? cc: Sammy Vicente MD; Jessika Treadwell ? EXAMINATION: ?? XR CHEST ? CLINICAL INFORMATION: ?? SOB ? COMPARISON: ?? Chest x-ray one to 25. ? TECHNIQUE: ?? Frontal view of the chest was obtained. ? FINDINGS: ?? The lungs are hypoexpanded with prominent bilateral parahilar vascular ?? markings likely congestion. No consolidation or pleural effusion seen. ?? Heart size enlarged. There is a right jugular central dialysis catheter ?? with its tip in the distal SVC. There is mild spondylosis. ? XR/XR chest 1V ?? IMPRESSION: ?? Prominent bilateral parahilar vascular markings suggestive congestion. ? Electronically signed by: ??Orlando Dozier MD ??05/29/2024 11:33 AM EST RP ? Dictated By: ?Orlando Dozier MD ? Signed By: ?<Electronically signed by Orlando Dozier MD in OV> ?05/29/24 1133 ? DD/ 1044 ? TD/TT: 05/29/24 1104 ? State [employer] Deputy Director: MSM ? Procedure Note Daniella Watson - 05/29/[address] [address] XRay Report Signed Patient: Cruz Muller#: [id number] 460 : 6Acct:[id number] Age/Sex: 69 / FADM Date: 05/29/24 Loc: HO.ED Attending Dr: Ordering Physician: Jessika Treadwell Date of Service: 05/29/24 Procedure(s): XR chest 1V Accession Number(s): [id number] cc: Sammy Vicente MD; Jessika Treadwell EXAMINATION: XR CHEST CLINICAL INFORMATION: SOB COMPARISON: Chest x-ray one to 25. TECHNIQUE: Frontal view of the chest was obtained. FINDINGS: The lungs are hypoexpanded with prominent bilateral parahilar vascular markings likely congestion. No consolidation or pleural effusion seen. Heart size enlarged. There is a right jugular central dialysis catheter with its tip in the distal SVC. There is mild spondylosis. XR/XR chest 1V IMPRESSION: Prominent bilateral parahilar vascular markings suggestive congestion. Electronically signed by: Orlando Dozier MD 05/29/2024 11:33 AM EST Dictated By: Orlanod Dozier MD Signed By: <Electronically signed by Orlando Dozier MD in OV> 05/29/24 1133 DD/ 1044 TD/TT: 05/29/24 1104 State [employer] Deputy Director: [facility] External Provider IMG XR PROCEDURES Final Result documented in this encounter Visit Diagnoses Not on filedocumented in this encounter Additional Health Concerns Assessment Noted Time PHQ-9 Depression Total Score: 11 10/17/ 024 9:25 AM EDT documented as of this encounter Care Teams Visual Coordinator Relationship Specialty Start Date End Date Sammy Reilly MD [address] [place] [phone] PCP - General Internal Medicine 12/23/13 [employer] 04/08/22 Tj Larose MD [employer] Nephrology 04/10/24 documented as of this encounter
--- OUTSIDE RECORDS SUMMARY | 2024-06-16 17:42 | XMS_ITS | Encounter Summary ---
Author Organization [employer] Address [address] 7t [place] [address] Care Team Providers Care Reproductive Healthcare Assistant Name Role Phone Sammy Reilly MD Primary Care Provide r Reason for Visit * Reason Comments Med Refill Encounter Details Date Type Department Care Team ([facility] Contact Info) Description 06/20/2022 Refill [facility] MEDICINE [address] [place] [phone] Sammy Reilly MD [address] [place], [place] [phone] Primary hypertension (Primary Dx); Uncomplicated opioid dependence (CMS/HCC) Social History Tobacco Use Types Packs/Day Years Used Date Smoking Tobacco: Never Assessed Comments Unknown Sex and Gender Information Value Date Recorded Sex Assigned at Female 03/20/2022 10:15 AM EDT Legal Sex Female 10:15 AM EDT Gender Identity Female 03/20/2022 10:15 AM EDT Sexual Orientation Straight 03/20/2022 10 :15 AM EDT COVID-19 Exposure Response Date Recorded In the last 10 days, have yo u been in contact with someone who was confirmed or suspected to have Coronavirus/COVID-19? No / Unsure 06/16/2022 11:32 AM EST documented as of this encounter Plan of Treatment Upcoming Encounters Date Type Department Care Team ([facility] Contact Info) Description 06/20/2024 10:00 AM EST Office Visit [facility] [address] [place] [phone] Messi Mccollum MD [address] [place], [place] [phone] documented as of this encounter Visit Diagnoses Diagnosis Primary hypertension- Primary Unspecified essential hypertension Uncomplicated opioid dependence (CMS/HCC) documented in this encounter Care Teams Reproductive Healthcare Assistant Relationship Specialty Start Date End Date Sammy Reilly MD [address] [place] [phone] PCP - General Internal Medicine 12/23/13 [employer] 04/08/22 Tj Larose MD [employer] Nephrology 04/10/24 documented as of this encounter
--- OUTSIDE RECORDS SUMMARY | 2024-06-16 17:42 | XMS_ITS | Encounter Summary ---
Author Organization [employer] Address [address] [facility] [address] [place] [address] Care Team Providers Care Casing Tester Name Role Phone Sammy Reilly MD Primary Care Provide r Reason for Visit * Reason Onset Date Comments Appointment Request 05/24/2023 Encounter Details Date Type Department Care Team ([facility] Contact Info) Description 05/24/2023 Telephone [facility]INE [address] [place], [place] [phone] Sammy Reilly MD [address] [place], [place] [phone] Appointment Request Social History Tobacco Use Types Packs/Day Years [...] encounter Miscellaneous Notes * Telephone Encounter - Bob Whitehead - 05/24/2023 11:25 AM EST Tc from patients care partner calling to request a follow appt with the patients PCP there is no concerns as of right now documented in this encounter Plan of Treatment Upcoming Encounters Date Type Department Care Team (Late st Contact Info) Description 06/20/2024 10:00 AM EST Office Visit [facility]INE [address] [place] [address] Messi Mccollum MD [address] [place] [address] documented as of this encounter Goals Goal [...] documented as of this encounter Care Teams Casing Tester Relationship Specialty Start Date End Date Sammy Reilly MD [address] [place] [address] PCP - General Internal Medicine 12/23/13 [employer] 04/08/22 Tj Larose MD [employer] Nephrology 04/10/24 documented as of this encounter
--- OUTSIDE RECORDS SUMMARY | 2024-06-16 17:42 | XMS_ITS | Encounter Summary ---
Author Organization [email or web address] Address [address] [facility] 7t [place] [address] Care Team Providers Care Porter Head Name Role Phone Sammy Reilly MD Primary Care Provide r Reason for Visit * Reason Comments Med Refill Encounter Details Date Type Department Care Team ([facility] Contact Info) Description 11/29/2022 Refill [facility] MEDICINE [address] [place], [place] [phone] Messi Mccollum MD [address] [place], [place] [phone] Tobacco use disorder Social History Tobacco Use Types Packs/Day Years Used Date Smoking Tobacco: Some Days Cigarettes Passive Smoke Exposure: Current Smokeless Tobacco: [...] suspected to have Coronavirus/COVID-19? No / Unsure 11/24/2022 8:43 AM EDT documented as of this encounter Plan of Treatment Upcoming Encounters Date Type Department Care Team ([facility] Contact Info) Description 06/20/2024 10:00 AM EST Office Visit [facility]INE [address] [place] [address] Messi Mccollum MD [address] [place] [address] documented as of this encounter Goals Goal Patient Goal Type Associated Problems Recent Progress Patient-Stated? Author Check and record your blood sugars as directed Blood Pressure No Jimbo Burris PharmD Short-term: Promote adherence to treatment regimen General No Jimbo Burris PharmJonathan Take your medication every day Lifestyle No Jimbo Burris PharmD documented as of this encounter Visit Diagnoses Diagnosis Tobacco use disorder documented in this encounter Additional Health Concerns Assessment Noted Time PHQ-9 Depression Total Score: 11 023 9:59 AM EDT documented as of this encounter Care Teams Porter Head Relationship Specialty Start Date End Date Sammy Reilly MD [address] [place] [phone] PCP - General Internal Medicine 12/23/13 [employer] 04/08/22 Tj Larose MD [employer] Nephrology 04/10/24 documented as of this encounter
--- OUTSIDE RECORDS SUMMARY | 2024-06-16 17:42 | XMS_ITS ---
Author Organization [facility] Address [address] [place] [address] Care Team Providers Care Landing Man Name Role Phone Marco A Whitehead MD, Sammy Primary Care Provide r Unavailable Alexandre Garcia, Joao Chua REASON FOR VISIT referral PROBLEMS Problem Type ICD Code Onset Dates Problem Status W/U Status Risk SNOMED Code Notes Problem Steatohepatitis (K75.81) Active confirmed 913351051 Encounters Encounter Location Date Provider Diagnosis [facility] [address] [place] [address] 01/17/2024 Joao Schroeder Jr Steatohepatitis K75.81 ASSESSMENTS Encounter Date Diagnosis Assessment Notes Treatment Notes Treatment Clinical Notes 01/17/2024 Steatohepatitis (ICD-10 - K75.81) PLAN OF TREATMENT Pending Test Test Name Order Date US ABD 01/17/2024 Next Appt Details Provider Name:Joao cedillo Jr, 09/17/2024 10:40:00 AM, [address], [address], [place], [address],
--- OUTSIDE RECORDS SUMMARY | 2024-06-16 17:42 | XMS_ITS | Clinical Summary ---
Author Organization [employer] Address [address] [facility] [address] [place] [address] Care Team Providers Care Mine Safety Director Name Role Phone Sammy Reilly MD Primary Care Provide r Allergies No known active allergies Medications * This document contains information received from the source organization and may not represent a complete record from that organization. sennosides (Senokot) 8.6 MG tablet TAKE 2 TABLETS BY MOUTH AT BEDTIME Active Spacer/Aero-Hol ding Chambers (Compact Space Chamber) deviceIndicatio ns:[place] Space chamber use with albuterol pump Active Blood Glucose Monitoring Suppl (FreeStyle Lite) device Inject under the skin if needed. Freestyle lite meter kit Test 1 times by intradermal route every day Active Alcohol Swabs (SM Alcohol Prep) 70 % pads USE DIRECTED Active bumetanide (Bumex) 2 MG tablet TAKE 1 TABLET BY MOUTH EVERY DAY Active Banophen 25 MG capsule TAKE 1 CAPSULE BY MOUTH EVERY DAY NEEDED FOR ALLERGIES Active nicotine polacrilex (Commit) 2 MG lozenge Dissolve 1 lozenge (2 mg) in the mouth if needed for smoking cessation. 100 lozenge Active Nutritional Supplements (Glucerna Shake) liquid drink one can twice a day 237 mL 11 Active mirtazapine (Remeron) 15 MG tablet Take 1 tablet by mouth Once daily. Active calcium acetate (Phoslo) 667 MG capsule Take 1 capsule by mouth with meals and with snacks. Do not take more than 5 capsules in one day 023 Active Flovent HFA 110 MCG/ACT inhaler INHALE 1 PUFF BY MOUTH TWICE DAILY 12 g 9 023 Active cloNIDine (Catapres) 0.1 MG tablet TAKE 1 TABLET BY MOUTH TWICE DAILY 60 tablet 9 023 Active hydrocortisone (Anusol-HC) 2.5 % rectal cream APPLY RECTALLY TWICE DAILY NEEDED 30 g 023 Active Blood Pressure Monitoring (Omron 3 Series BP Monitor) deviceIndicatio ns:Primary hypertension USE TO CHECK BLOOD PRESSURE ONCE A WEEK 1 each 024 Active amLODIPine (Norvasc) 5 MG tabletIndicatio ns:Primary hypertension Take 1 tablet (5 mg) by mouth in the morning. 30 tablet 3 024 Active neomycin-polymy bin-dexAMETHaso ne (Maxitrol) 0.1 % ointment Apply 1 each to affected eye(s) 2 times daily. Apply to affected eyelids 2x/day. 3.5 g 024 Active docusate sodium (Colace) 100 MG capsule TAKE 2 CAPSULES BY MOUTH EVERY DAY IN THE MORNING 180 capsule 024 Active B Lrfxuvt-U-Gkvuz Acid (Elle-Sharifa Rx) 1 MG tablet TAKE 1 TABLET BY MOUTH EVERY DAY 90 tablet 3 024 Active losartan (Cozaar) 50 MG tablet TAKE 1 TABLET BY MOUTH EVERY DAY IN THE MORNING 30 tablet 3 024 Active Aspirin Adult Low Strength 81 MG EC tablet TAKE 1 TABLET BY MOUTH EVERY DAY 30 tablet 11 024 Active TRUEplus Lancets 33G [facility] TEST BLOOD SUGAR FIVE TIMES DAILY 100 each 11 024 Active glucose 4 g chewable tablet Chew 4 tablets (16 g) if needed for low blood sugar. 50 tablet 12 024 2024 Active carvedilol (Coreg) 6.25 MG tabletIndicatio ns:Hypertension secondary to other renal disorders TAKE 1 TABLET BY MOUTH TWICE DAILY IN THE MORNING AND IN THE EVENING WITH MEALS 60 tablet 2 024 Active polyethylene glycol, PEG, 3350 (Glycolax) 17 GM/SCOOP powder Mix 17g (1 capful) in 8 ounces of water and take by mouth every day 510 g 2 024 Active Diclofenac Sodium 1 % gelIndications: Chronic midline low back pain without sciatica APPLY 2 GRAMS TOPICALLY TO AFFECTED AREA(S) TWICE DAILY DIRECTED 100 g 2 024 Active Buprenorphine HCl-Naloxone HCl (Suboxone) 8-2 MG SL filmIndications :Uncomplicated opioid dependence (CMS/HCC) Place 2 Film under the tongue Once per day for 28 days. 56 Film 024 Active isosorbide dinitrate (Isordil) 30 MG tabletIndicatio ns:Hypertension secondary to other renal disorders TAKE 1 TABLET BY MOUTH THREE TIMES DAILY 90 tablet 2 024 Active Acetaminophen Extra Strength 500 MG tabletIndicatio ns:Chronic midline low back pain without sciatica TAKE 1 TABLET BY MOUTH EVERY 8 HOURS NEEDED FOR PAIN 30 tablet 9 024 Active ondansetron (Zofran) 4 MG tabletIndicatio ns:Nausea TAKE 1 TABLET BY MOUTH EVERY TWELVE HOURS FOR NAUSEA AND VOMITING 20 tablet 9 024 Active nicotine (Nicoderm, Step 2) 14 MG/24HR patchIndication s:Tobacco use disorder APPLY 1 PATCH TOPICALLY TO THE SKIN IN THE MORNING *DO NOT SMOKE WHILE USING PATCH* 28 patch 2 024 Active albuterol (Ventolin HFA) 108 (90 Base) MCG/ACT inhalerIndicati ons:Chronic obstructive pulmonary disease, unspecified COPD type (CMS/HCC) INHALE 2 PUFFS BY MOUTH EVERY 4 TO 6 HOURS NEEDED FOR COUGH, WHEEZING, OR SHORTNESS OF BREATH 18 g 3 024 Active pantoprazole (ProtoNix) 40 MG EC tabletIndicatio ns:Chronic gastritis without bleeding, unspecified gastritis type TAKE 1 TABLET BY MOUTH EVERY MORNING. DO NOT BREAK, CRUSH, DISSOLVE OR CHEW. 90 tablet 1 024 Active melatonin 5 MG tabletIndicatio ns:Primary insomnia TAKE 1 TABLET BY MOUTH EVERY DAY AT BEDTIME NEEDED FOR SLEEP 30 tablet 3 024 Active mupirocin (Bactroban) 2 % ointmentIndicat ions:Chronic obstructive pulmonary disease, unspecified COPD type (CMS/HCC) APPLY TOPICALLY THREE TIMES DAILY FOR 10 DAYS 22 g 025 Active FREESTYLE LITE test stripIndication s:Type 2 diabetes mellitus with chronic kidney disease on chronic dialysis, with long-term current use of insulin ([facility]) USE DIRECTED TO TEST BLOOD SUGAR FIVE TIMES DAILY 100 strip 3 025 Active albuterol (2.5 MG/3ML) 0.083% nebulizer solutionIndicat ions:Chronic obstructive pulmonary disease, unspecified COPD type (CMS/HCC) INHALE 1 AMPULE USING A NEBULIZER EVERY 6 HOURS NEEDED FOR WHEEZING 90 mL 3 025 Active lactulose (Chronulac) 10 GM/15ML solutionIndicat ions:Constipati on, unspecified constipation type TAKE 15 ML BY MOUTH EVERY DAY PRN for CONSTIPATION 473 mL 3 025 Active buprenorphine-n aloxone (Suboxone) 12-3 MG per sublingual filmIndications :Uncomplicated opioid dependence ([facility]/HCC) Place 1 Film under the tongue Once per day for 3 days. 3 Film 025 2024 Active lactulose (Chronulac) 10 GM/15ML solutionIndicat ions:Constipati on due to opioid therapy TAKE 15 ML BY MOUTH ONCE DAILY FOR 1 DAY, THEN INCREASE TO 15 TO 30 ML BY MOUTH EVERY DAY NEEDED FOR CONSTIPATION 473 mL 3 024 2024 Discontinued FREESTYLE LITE test stripIndication s:Type 2 diabetes mellitus with chronic kidney disease on chronic dialysis, with long-term current use of insulin ([facility]) USE TO TEST BLOOD SUGAR 5 TIMES PER DAY 100 strip 3 024 2024 Discontinued albuterol (2.5 MG/3ML) 0.083% nebulizer solutionIndicat ions:Chronic obstructive pulmonary disease, unspecified COPD type (CMS/HCC) Take 3 mL (2.5 mg) by nebulization every 6 (six) hours if needed for wheezing. 75 mL 3 024 2024 Discontinued(R eorder (will not trigger notification to Pharmacy)) mupirocin (Bactroban) 2 % ointmentIndicat ions:Chronic obstructive pulmonary disease, unspecified COPD type (CMS/HCC) APPLY TOPICALLY THREE TIMES DAILY FOR 10 DAYS 22 g 024 2024 Discontinued buprenorphine-n aloxone (Suboxone) 12-3 MG per sublingual filmIndications :Uncomplicated opioid dependence (CMS/HCC) Place 1 Film under the tongue Once per day for 14 days. 14 Film 024 2024 Discontinued(R eorder (will not trigger notification to Pharmacy)) lactulose (Chronulac) 10 GM/15ML solutionIndicat ions:Constipati on due to opioid therapy TAKE 15 ML BY MOUTH EVERY DAY FOR ONE DAY. THEN INCREASE TO 15-30 ML BY MOUTH EVERY DAY NEEDED FOR CONSTIPATION 473 mL 3 025 2024 Discontinued(R eorder (will not trigger notification to Pharmacy)) buprenorphine-n aloxone (Suboxone) 12-3 MG per sublingual filmIndications :Uncomplicated opioid dependence (CMS/HCC) Place 1 Film under the tongue Once per day for 14 days. Do not start before June 06, 2024. 14 Film 025 2024 Discontinued(R eorder (will not trigger notification to Pharmacy)) Active Problems Problem Noted Date Diagnosed Date Elevated blood pressure reading 12/05/2023 Assessment & Plan (12/05/2023 9:44 AM EDT): Suspect symptoms of LE numbness are from fluid overload. Given elevated BP, chronic daily headaches, and LE edema, I strongly recommend emergency room. She adamantly refuses. I strongly advised that I ranjana dialysis to see if we can get her in today. She refuses. She signed AMA (amicably) and agrees to call 911 fr shortness of breath, chest pain or stroke symptoms. She understands the risk of leaving with elevated blood pressure and fluid overload. Leg numbness 12/05/2023 Acute left flank pain 12/03/2023 Chronic obstructive asthma with exacerbation Hepatitis C virus infection, unspecified chronic ity 12/03/2023 Hyperkalemia 10/18/2023 Assessment & Plan (10/18/2023 9:17 AM EDT): Pt recently admitted to [facility] for hyperkalemia. Pt's K improved after Lokelma and HD. Her Losartan was discontinued as well Plan: Repeat [facility] Hospital discharge follow-up 10/18/2023 Assessment & Plan (10/18/2023 9:17 AM EDT): Pt recently admitted to [facility] 10/16/2023 for hyperkalemia. Pt's K improved after Lokelma and HD. Her Losartan was discontinued as well Plan: Repeat BMP Rectal prolapse 10/18/2023 Assessment & Plan (03/11/2024 9:23 AM EDT): Pt here for a follow up after she was seen again at [facility] ER with c/o rectal prolapse. Pt is well known to the office of General surgeon Dr. Edmundo Mendez who last saw her on 01/28/2024. It was his impression that patient has prolapsing hemorrhoids and chronic constipation as well. He told her that it would be best to have a better controlled with a chronic constipation for now. And that It was best to maximize medical management of her hemorrhoids in view of her multiple medical problems He advised her to increase her Metamucil twice a day. She is not to stay on the toilet for long periods of time and I emphasized this to her and that she could follow up in the office on a p.r.n. basis. Patient requested a second opinion at [facility] Surgeons to discuss her options. This referral has been placed, appointment has been scheduled for 05/22/2024 Assessment & Plan (10/18/2023 10:01 AM EDT): Patient with a rectal prolapse Plan: Stat referral to colorectal surgeon Dr Edmundo Luis Hemorrhoids 09/06/2023 Assessment & Plan (09/06/2023 2:09 PM EDT): Patient with c/o painful hemorrhoids that do not respond to topical steroid creams. Would like to be evaluated for consideration of ligation Plan: Will refer to general surgeon Preventative health care 12/28/2022 Assessment & Plan (03/11/2024 9:15 AM EDT): Mammogram: 11/07/2023 Normal Pap Smear: NL 12/05/2023 5 year repeat Colonoscopy: 07/03/2007, While in the Hospital seen by Dr. Schroeder 05/2022 underwent colonoscopy to mid transverse colon limited as patient refused prepped no colitis or proctitis, noted to have normal mucosa GI recommend to advance diet Assessment & Plan (10/18/2023 9:42 AM EDT): Mammogram: 01/25/2019 ,missed appointment again. Ordered again Pap Smear: NL 05/29/2018, will schedule with [facility] Colonoscopy: 07/03/2007, While in the Hospital seen by Dr. Schroeder 05/2022 underwent colonoscopy to mid transverse colon limited as patient refused prepped no colitis or proctitis, noted to have normal mucosa GI recommend to advance diet Assessment & Plan (09/06/2023 2:02 PM EDT): Mammogram: 01/25/2019 ,missed appointment again Pap Smear: NL 05/29/2018, will schedule with [facility] Colonoscopy: 07/03/2007, While in the Hospital seen by Dr. Schroeder 05/2022 underwent colonoscopy to mid transverse colon limited as patient refused prepped no colitis or proctitis, noted to have normal mucosa GI recommend to advance diet Assessment & Plan (12/28/2022 9:54 AM EDT): Mammogram: 01/25/2019 , referred missed appointment previously, MANUAL TESTER tells me she will make the appointment Pap Smear: NL 05/29/2018 Colonoscopy: 07/03/2007, While in the Hospital seen by Dr. Schroeder 05/2022 underwent colonoscopy to mid transverse colon limited as patient refused prepped no colitis or proctitis, noted to have normal mucosa GI recommend to advance diet Chronic diastolic congestive heart failure 06/27 Assessment & Plan (10/18/2023 9:34 AM EDT): Pt previously admitted to [facility] from 03/10/22-03/13/22 for further management with a diagnosis of Acute hypoxemic respiratory failure possibly due to fluid overload/ESRD. Patient received HD and improved. Pt was subsequently readmitted to [facility] from 03/26/22 - 03/27/22 for CHF, hypoxia and ESRD Patient admitted at [facility] from 03/27/22 - 04/07/22. ProBNP elevated >70,000 on 03/27. volume status improved after dyalisis on 03/27. ECHO showed EF 45% . Cardiology consult recommended outpt ischemic work up. She never went to see data support specialist will refer back Assessment & Plan (12/28/2022 10:03 AM EDT): Pt previously admitted to [facility] from 03/10/22-03/13/22 for further management with a diagnosis of Acute hypoxemic respiratory failure possibly due to fluid overload/ESRD. Patient received HD and improved. Pt was subsequently readmitted to [facility] from 03/26/22 - 03/27/22 for CHF, hypoxia and ESRD Patient admitted at [facility] from 03/27/22 - 04/07/22. ProBNP elevated >70,000 on 03/27. volume status improved after dyalisis on 03/27. ECHO showed EF 45% . Cardiology consult recommended outpt ischemic work up. Pt Tells me she finally went to see the Elementary Science Teacher . 3 months ago records requested Renal artery aneurysm 05/09/2022 Assessment & Plan (10/18/2023 9:35 AM EDT): Pt has a Hx of a 9 mm right renal artery aneurysm seen on most recent CTA on 06/08/2011 but No stenosis. This was done in the ER. Pt has been evaluated for this at [facility] Vascular surgery. last note on record from 01/08/2012 mentioned that this does not offer any major risk and recommended prn f/u Assessment & Plan (12/28/2022 9:50 AM EDT): Pt has a Hx of a 9 mm right renal artery aneurysm seen on most recent CTA on 06/08/2011 but No stenosis. This was done in the ER. Pt has been evaluated for this at [facility] Vascular surgery. last note on record from 01/08/2012 mentioned that this does not offer any major risk and recommended prn f/u Thickened endometrium 05/09/2022 Constipation 05/09/2022 Assessment & Plan (10/03/2022 9:53 AM EDT): Here for a follow up, seen at our [facility] after pt reported 7 days w/o BM, progressively starting to experience loss of appetite, nausea, and left CVA tenderness Pt was recommended ED evaluation, it appears she did not go. Plan: GI Consult for chronic constipation. Pt referred to Dr Schroeder in the past Assessment & Plan (09/29/2022 9:49 PM EDT): ?? Reports 7 days w/o BM, progressively starting to experience loss of appetite, nausea, and left CVA tenderness ?? Exam: TTP in all four quadrants, abdomen distended, bowel sounds audible ?? Concern for significant stool burden requiring ED visit for further eval and treatment. Recommended ED evaluation NOW. ?? Pt initially agreed to have ambulance called to clinic, however while call was being placed, declined ED visit today but promised to go to [facility] hospital tomorrow AM. Will request status check next day (10/02/22) ?? Zofran refilled per request, however reviewed med safety and SE Follow up as needed, patient in agreement with plan End-stage renal disease on hemodialysis 04/17/20 Assessment & Plan (12/28/2022 9:59 AM EDT): HD //Sunday Still awaiting AV fistula placement. Posterior subcapsular polar senile cataract 09/19 Presbyopia 10/11/2017 Simple renal cyst 10/19/2015 Assessment & Plan (12/28/2022 10:00 AM EDT): Simple cyst lower pole left kidney seen on CT 12/24/2022 Chronic pain of both knees 03/18/2015 Assessment & Plan (10/18/2023 9:38 AM EDT): Persistent bilateral knee pain Responded well to steroid injections in the past Plan: ortho evaluation Carpal tunnel syndrome 11/29/2011 Obesity 11/29/2011 Mantoux: positive 11/29/2011 Osteoarthritis of knee 11/29/2011 Smoker 11/29/2011 Thyroid nodule 11/29/2011 Anemia 11/02/2011 Anxiety 11/02/2011 Chronic obstructive lung disease 11/02/2011 Assessment & Plan (10/18/2023 9:30 AM EDT): No recent exacerbations Pt not taking flovent or spiriva, unclear if using albuterol Reviewed inhalers and their use extensively w/ pt Assessment & Plan (12/28/2022 9:48 AM EDT): Pt not taking flovent or spiriva, unclear if using albuterol Reviewed inhalers and their use extensively w/ pt Combined drug dependence excluding opioids 11/01 Assessment & Plan (12/28/2022 9:50 AM EDT): On suboxone Diabetes mellitus, type II 11/02/2011 Assessment & Plan (03/11/2024 9:18 AM EDT): Patient is here for a f/u Pt has VNA services twice a day, She is no longer using Insulin due to low readings Hgb A1c 03/11/2024: 7 Plan: Continue with NO long acting insulin, use sliding scale if needed f/u with me in 3 months Assessment & Plan (09/06/2023 2:01 PM EDT): Patient is here for a f/u Pt has VNA services twice a day, She is no longer using Insulin due to low readings Hgb A1c 04/2023: 6.4 Plan: Continue with NO long acting insulin, might use sliding scale if needed f/u with me in 3 months in person Assessment & Plan (12/28/2022 9:48 AM EDT): Patient is here for a f/u Pt has VNA services twice a day, She is no longer using Insulin due to low readings Hgb A1c 10/03/2022 was 5.8 Plan: Continue with NO long acting insulin, might use sliding scale if needed f/u with me in 3 months Assessment & Plan (10/03/2022 10:04 AM EDT): Patient is here for a f/u Pt has VNA services twice a day, She is no longer using Insulin due to low readings Hgb A1c 10/03/2022 was 5.8 Plan: Continue with NO long acting insulin, might use sliding scale if needed f/u with me in 3 months Hypertension 11/02/2011 Assessment & Plan (03/11/2024 9:16 AM EDT): Patient here for a follow up Blood pressure managed by Nephrology very difficult to control HTN, on HD Her antihypertensive regimen as of today Is: Carvedilol 6.25 mg po BID Isosorbide 30 mg BID Amlodipine 10 mg po daily Clonidine 0.1mg po BID Hydralazine 100 mg po TID Off Losartan stopped during recent Hospitalization for Hyperkalemia Assessment & Plan (10/18/2023 9:19 AM EDT): Patient here for a follow up Blood pressure managed by Nephrology very difficult to control HTN, on HD Her antihypertensive regimen as of today Is: Carvedilol 6.25 mg po BID Isosorbide 30 mg BID Amlodipine 10 mg po daily Clonidine 0.1mg po BID Hydralazine 100 mg po TID Off Losartan stopped during recent Hospitalization for Hyperkalemia Assessment & Plan (12/28/2022 10:10 AM EDT): Patient here for a follow up Blood pressure managed by Nephrologyvery difficult to control HTN, on HD Her antihypertensive regimen as of today Is: Carvedilol 6.25 mg po BID Isosorbide 30 mg BID Losartan 50 mg po daily Amlodipine 10 mg po daily Clonidine 0.1mg po BID Hydralazine 100 mg po TID Assessment & Plan (10/03/2022 4:20 PM EDT): Patient here for a follow up Blood pressure managed by Nephrology, multiple hospitalizations with very difficult to control HTN While in the Hospital many of her medications were adjusted Her antihypertensive regimen as of today Is: Losartan 100 mg po daily Amlodipine 10 mg po daily Diltiazem 320 mg po daily Clonidine 0.1mg po BID (decreased at Hospital) Hydralazine 50 mg po TID Bumetanide 2 mg daily Pt's blood pressure elevated, she is scheduled to undergo HD today at 11:00 AM Chronic low back pain 05/21/1958 Assessment & Plan (12/28/2022 10:00 AM EDT): Pt requesting Lidoderm patches, Unable to take NSAIDS Depressive disorder 05/21/1958 Gastritis 05/21/1959 Urinary incontinence 05/21/1958 Assessment & Plan (12/04/2023 9:07 AM EDT): Pt with c/o urinary incontinence, pt is unable to get up during HD and sometimes she wets herself during HD Using Adult diapers. Received the wrong size, I will ask our Nurses to assist her Assessment & Plan (12/28/2022 9:49 AM EDT): Pt with c/o urinary incontinence, pt is unable to get up during HD and sometimes she wets herself during HD Using Adult diapers Resolved Problems Problem Noted Date Diagnosed Date Resolved Date COVID-19 05/09/2022 06/27/2022 Encounters Date Type Department Care Team Description 06/16/2024 Telephone [facility] [address] [place] [phone] Lashawn Bang, neurology technologist Question 06/16/2024 Refill [facility] [address] [place] [phone] Messi Mccollum MD Uncomplicated opioid dependence ([facility]) 06/16/2024 Telephone [facility] [address] [place] [phone] Demi Esquivel RN 06/16/2024 Refill [facility] [address] [place] [phone] Demi Esquivel RN Uncomplicated opioid dependence ([facility]) 06/16/2024 Telephone [facility] [address] [place] [phone] Demi Esquivel RN 06/12/2024 Telephone [facility] [address] [place] [phone] Sammy Reilly MD No Show 06/11/2024 5:00 PM EST Office Visit [facility] [address] [place] [phone] Nolberto Cates MD Rectal prolapse (Primary Dx); Constipation, unspecified constipation type 06/10/2024 Telephone [facility] [address] [place] [phone] Sammy Reilly MD PA 06/08/2024 Refill [facility] [address] [place] [address] Sammy Reilly MD Type 2 diabetes mellitus with chronic kidney disease on chronic dialysis, with long-term current use of insulin ([facility]); Chronic obstructive pulmonary disease, unspecified COPD type ([facility]) 06/07/2024 Refill [facility] [address] [place] [address] Sebastián Lora MD Chronic obstructive pulmonary disease, unspecified COPD type ([facility]) 06/05/2024 Telephone [facility] [address] [place] [address] Sammy Reilly MD FYI 06/05/2024 Telephone [facility] [address] [place] [address] Sammy Reilly MD Chart Prep 05/30/2024 Refill [facility] [address] [place] [address] Jessica Rahman, CELIO Uncomplicated opioid dependence ([facility]) 05/29/2024 Orders Only GENERIC EXTERNAL DATA DEPARTMENT Provider, Generic External Data 05/26/2024 Telephone [facility] [address] [facility] [place] [address] Sammy Reilly MD Medication Question 05/26/2024 Refill [facility] [address] [place] [address] Sammy Reilly MD Constipation due to opioid therapy; Chronic obstructive pulmonary disease, unspecified COPD type ([facility]) 05/21/2024 Orders Only GENERIC EXTERNAL DATA DEPARTMENT Provider, Generic External Data 05/16/2024 Refill [facility] [address] [place] [address] Demi Esquivel, CELIO Uncomplicated opioid dependence ([facility]) 05/08/2024 Refill [facility] [address] [place] [address] Sammy Reilly MD Chronic gastritis without bleeding, unspecified gastritis type; Primary insomnia 05/02/2024 Telephone [facility] [address] [place] [phone] Sammy Reilly MD June05/02/2024 Refill [facility] [address] [place] [address] Demi Esquivel RN Uncomplicated opioid dependence (CMS/HCC) 04/28/2024 Patient Outreach [facility] [address] [place] [phone] Sammy Reilly MD Transition Of Care (Tcm) (F- LVM) 04/28/2024 Telephone [facility] [address] [place] [phone] Sammy Reilly MD Hospital Follow-up 04/19/2024 Orders Only GENERIC EXTERNAL DATA DEPARTMENT Provider, Generic External Data 04/15/2024 Refill [facility] [address], [place] [phone] Sammy Reilly MD Chronic obstructive pulmonary disease, unspecified COPD type (CMS/HCC) 04/12/2024 Orders Only GENERIC EXTERNAL DATA DEPARTMENT Provider, Generic External Data 04/11/2024 9:00 AM EST Office Visit [facility] [address] [place] [address] [phone] Messi Mccollum MD Uncomplicated opioid dependence (CMS/HCC) (Primary Dx) 04/11/2024 Refill [facility] [address] [place] [address] [phone] Demi Esquivel, CELIO Uncomplicated opioid dependence (CMS/HCC) 04/11/2024 Travel 04/09/2024 Telephone [facility] [address] [place] [address] [phone] Qing Spence, CELIO 04/07/2024 3:00 PM EST Office Visit [facility] [address] [place] [address] [phone] Sebastián Lora MD Acute cough (Primary Dx); Chronic obstructive pulmonary disease, unspecified COPD type (CMS/HCC); Abrasion 04/07/2024 Orders Only [facility] [address], [place] [phone] Sebastián Lora MD 04/04/2024 Refill [facility] [address] [place] [address] Zia Mina RN Uncomplicated opioid dependence ([facility]) 04/04/2024 Telephone [facility] [address] [place] [address] [phone] Dora Ashby MA 04/01/2024 Refill [facility] [address] [place] [address] [phone] Sammy Reilly MD Tobacco use disorder 03/31/2024 Telephone [facility] [address] [place] [address] [phone] Sammy Reilly MD Chart Prep 03/28/2024 Refill [facility] [address] [place] [address] [phone] Demi Esquivel RN Uncomplicated opioid dependence ([facility]) 03/21/2024 10:15 AM EDT Clinical Support [facility] [address] [place] [address] [phone] Zia Mina RN Uncomplicated opioid dependence ([facility]) 03/21/2024 Travel from Last 3 Months Immunizations Name Administration Dates Next Due Hep B, adult 04/09/2003,11/17/1999 Influenza injectable quadriv alent preservative free 02/26/2021,05/29/2018 Influenza, IIV3, injectable 03/08/2024, 4,02/08/2011 Influenza, Injectable, MDCK, preservative free 07/12/2015 Influenza, seasonal, injecta ble, preservative free 04/19/2015 Influenza, trivalent, adjuvanted 04/19/2015 Moderna Covid-19 Vaccine 12+ 05/17/2021,08/28/19 21,07/30/2020 Pfizer Covid-19 Vaccine 12+ Bivalent 03/03/2022 Pneumococcal Conjugate PCV 20 08/04/2022 Pneumococcal Polysaccharide PPSV23 09/05/2022,,04/30/2003 Tdap 01/07/2015 Social History Tobacco Use Types Packs/Day Years Used Date Smoking Tobacco: Some Days Cigarettes 0.3 1.1 Started: 2023 Passive Smoke Exposure: Current Smokeless Tobacco: Never Tobacco Cessation:Ready to Q uit: Not Asked; Counseling Given: Not Answered Alcohol Use Standard Drinks/Week Comments Not Currently [...] Orientation Straight 03/20/2022 10 :15 AM EDT Last Filed Vital Signs Vital Sign Reading Time Taken Comments Blood Pressure 180/80 06/11/2024 4:44 PM EST no meds has head aches Pulse 80 06/11/2024 4:44 PM EST Temperature 36.7 ??C (98 ??F) 06/11/2024 4:4 4 PM EST Respiratory Rate 20 06/11/2024 4:44 PM EST Oxygen Saturation 96% 04/07/2024 2:4 7 PM EST Inhaled Oxygen Concentration - - Weight 70.3 kg (155 lb) 06/11/2024 4:44 PM EST Height 149.9 cm (4' 11 ) 06/11/2024 4:4 4 PM EST Body Mass Index 31.31 06/11/2024 4:44 PM EST Plan of Treatment Upcoming Encounters Date Type Department Care Team (Late st Contact Info) Description 06/20/2024 10:00 AM EST Office Visit [facility] [address], [place] [phone] Messi Mccollum MD [address] [place] [address] Health Maintenance Due Date Last Done Comments CT Colonography 1955 Colonoscopy 1955 Colorectal Cancer Screening 1955 Dental Prophylaxis 1956 Dental X-Ray: Bitewings 1956 FIT DNA/Cologuard 1956 FIT 1956 FOBT 1956 Sigmoidoscopy 1956 Diabetes: Foot Exam 1966 Eye Exam 1966 Hepatitis A Vaccines (1 of 2 - Risk 2-dose series) 1975 Hepatitis B Vaccines (3 of 3 - Risk 3-dose series) 06/04/2003 04/09/2003, 11/17/1999 Zoster Vaccines (1 of 2) 2006 RSV Patients and Patients Aged 60 years or older (1 - Risk 60-74 years 1-dose series) 2016 Lipid Panel 11/23/2021 11/23/2020 Dental Oral Exam 09/29/2023 03/30/2023 COVID-19 Vaccine ( season) 2024 05/10/2023, 03/03/2022, 05/17/2021, Additional history exists Depression Monitoring (PHQ-9) 04/19/2024 10/18/2023, 10/18/2023 Diabetes: Hemoglobin A1C 06/11/2024 024, 10/18/2023, 05/04/2023, Additional history exists Depression Screening 10/17/2024 10/18/2023, 10/18/19 24 SDOH Screening 10/17/2024 10/18/2023 Mammogram 11/06/2024 11/07/2023, 11/0 11/2018, 01/30/2018 DTaP/Tdap/Td Vaccines (2 - Td or Tdap) 01/07/2025 01/07/2015 Alcohol/Substance Use Screening 03/11/2025 03/11/2024 Tobacco Screening 06/11/2025 06/11/2024 Dental X-Ray: Full Mouth 03/31/2026 03/30/2023 HPV/Cotest 12/04/2028 12/05/2023, 05/29/2018 Pap Smear 12/04/2028 12/05/2023 Pneumococcal Vaccine: 65+ Years Completed 09/05/2022, 08/04/2022, 07/12/2015, Additional history exists Influenza Vaccine Completed 03/08/2024, , 05/29/2018, Additional history exists HIB Vaccines Aged Out No longer eligi ble based on patient's age to complete this topic HPV Vaccines Aged Out No longer eligi ble based on patient's age to complete this topic IPV Vaccines Aged Out No longer eligi ble based on patient's age to complete this topic Meningococcal Vaccine Aged Out No jessica ara eligible based on patient's age to complete this topic RSV under 20 months Aged Out No longe r eligible based on patient's age to complete this topic Rotavirus Vaccines Aged Out No longer eligible based on patient's age to complete this topic Goals Goal Patient Goal Type Associated Problems Recent Progress Patient-Stated? Author Check and record your blood sugars as directed Blood Pressure No Jimbo Burris PharmD Short-term: Promote adherence to treatment regimen General No Jimbo Burris PharmD Take your medication every day Lifestyle No Jimbo Burris PharmD Procedures Procedure Name Priority Date/Time Associated Diagnosis Comments US ABDOMEN COMPLETE Routine 06/01/2024 9 :[address] ABDOMEN PELVIS WO CONTRAST Routine 05/30/2024 10:13 AM EST GLUCOSE, WHOLE BLOOD Routine 05/29/2024 12:31 PM EST VENOUS BLOOD GAS Routine 05/29/2024 11:0 2 AM EST XR CHEST 1 VIEW Routine 05/29/2024 10:44 AM EST XR CHEST 1 VIEW Routine 05/22/2024 9:35 AM EST XR CHEST 1 VIEW Routine 05/21/2024 4:33 PM EST VENOUS BLOOD GAS Routine 05/21/2024 3:52 PM EST LACTIC ACID Routine 05/21/2024 3:45 PM EST MAGNESIUM Routine 05/21/2024 3:33 PM EST BASIC METABOLIC PANEL Routine 05/21/2024 3:33 PM EST HEPATIC FUNCTION PANEL Routine 3:33 PM EST HIGH SENSITIVITY TROPONIN I Routine 05/21/2024 3:33 PM EST B TYPE NATRIURETIC PEPTIDE (BNP) Routine 05/21/2024 3:33 PM EST PROTHROMBIN TIME-INR Routine 05/21/2024 3:33 PM EST CBC WITH AUTO DIFFERENTIAL Routine 05/21/2024 3:33 PM EST SARS COV2/INFLUENZA A/B AND RSV RNA QL NAAT Routine 05/21/2024 3:10 PM EST LACTIC ACID Routine 04/19/2024 8:04 AM EST VENOUS BLOOD GAS Routine 04/19/2024 8:01 AM EST XR CHEST 1 VIEW Routine 04/19/2024 7:22 AM EST GLUCOSE, WHOLE BLOOD Routine 04/12/2024 1:25 PM EST CBC WITH AUTO DIFFERENTIAL Routine 04/12/2024 1:13 PM EST DRUG TOXICOLOGY MONITORING BASE PANEL, WITH CONFIRMATION, ORAL FLUID Routine 04/11/2024 11:35 AM EST Uncomplicated opioid dependence (CMS/HCC) XR CHEST 2 VIEWS Routine 04/07/2024 3:31 PM EST Chronic obstructive pulmonary disease, unspecified COPD type (CMS/HCC) Acute cough POCT GLYCATED HEMOGLOBIN, TOTAL Routine 03/11/2024 9:16 AM EDT Type 2 diabetes mellitus with chronic kidney disease on chronic dialysis, with long-term current use of insulin (CMS/HCC) THINPREP IMAGING PAP AND HPV MRNA E6/E7 Routine 12/05/2023 9:53 AM EDT BI MAMMOGRAM SCREENING TOMOSYNTHESIS BILATERAL Routine 11/07/2023 2:55 PM EDT Encounter for screening mammogram for malignant neoplasm of breast PANORAMIC RADIOGRAPHIC IMAGE Routine 03/30/2023 10:30 AM EST Complete edentulism, unspecified edentulism class COMPREHENSIVE ORAL EVALUATION - NEW OR ESTABLISHED PATIENT Routine 03/30/2023 10:30 AM EST Complete edentulism, unspecified edentulism class LIPID PANEL, STANDARD Routine 11/23/2020 9:54 AM EDT from Last 3 Months or Most Recently Relevant to Health Maintenance Results * US Abdomen Complete (06/01/2024 9:56 AM EST) Anatomical Region Laterality Modality Abdomen Ultrasound 06/01/2024 9:56 AM EST Narrative 06/01/2024 9:58 AM EST ? [facility] [facility] ?[address] ?[place] [address] ? Ultrasound Report ? Signed ? Patient: Muller, Heidy ?MR#: [id number] ?? 460 ? : 1955 ?Acct:[id number] ? Age/Sex: 69 / F ?ADM Date: 05/29/24 ? Loc: HO.IMC ?482-1 ? Attending Dr: Hattie TAYLOR ? Ordering Physician: Hattie Govea ?? Date of Service: 06/01/24 ?? Procedure(s): US abdomen complete ?? Accession Number(s): [id number] ? cc: Hattie Govea; Sammy Vicente MD [...] DD/ 0956 ? TD/TT: 06/01/24 0956 ? Bronzer: ? Procedure Note Shirley, Image - 06/01/[address] [address] Ultrasound Report Signed Patient: Cruz Muller#: [id number] 460 : 6Acct:[id number] Age/Sex: 69 / FADM Date: 05/29/24 Loc: [facility] 482-[address]: Hattie TAYLOR Ordering Physician: Hattie Govea Date of Service: 06/01/24 Procedure(s): US abdomen complete Accession Number(s): [id number] cc: Hattie Govea; Sammy Vicente MD CLINICAL [...] Zarate MD in OV> 06/01/24 0957 DD/ TD/TT: 06/01/2456 Bronzer: [facility] External Provider IMG US PROCEDURES Final Result * CT Abdomen Pelvis w/o Contrast (05/30/2024 10:13 AM EST) Anatomical Region Laterality Modality Body, Pelvis, Abdomen Computed T omography 05/30/2024 10:1 3 AM EST Narrative 05/30/2024 11:12 AM EST ? [facility] ?[address] ?[place] [address] ? CT Scan Report ? Signed ? Patient: Muller, Heidy ?MR#: [id number] ?? 460 ? : 1955 ?Acct:[id number] ? Age/Sex: 69 / F ?ADM Date: //25 ? Loc: HO.IMC ?482-1 ? Attending Dr: Hattie TAYLOR ? Ordering Physician: Hattie Govea ?? Date of Service: 05/30/24 ?? Procedure(s): CT abdomen pelvis wo IV con ?? Accession Number(s): [id number] ? cc: Hattie Govea; Sammy Vicente MD ? Report Number: ?? [id number]: Total DLP = ??466.00 mGy-cm ?? EXAMINATION: [...] DD/ 1013 ? TD/TT: 05/30/24 1045 ? Bronzer: ? Procedure Note Daniella Watson - 05/30/2024 [facility] [address] [place] [address] CT Scan Report Signed Patient: Cruz MullerMR#: [id number] 460 : 1955cct:[id number] Age/Sex: 69 / FADM Date: 05/29/24 Loc: [facility] 482-[address]: Hattie TAYLOR Ordering Physician: Hattie Govea Date of Service: 05/30/24 Procedure(s): CT abdomen pelvis wo IV con Accession Number(s): [id number] cc: Hattie Govea; Sammy Vicente MD Report Number: [id number]: Total DLP = 466.00 mGy-cm EXAMINATION: CT [...] Sundar Lindsey MD 05/30/2024 11:10 AM EST RP Dictated By: Sundar Dupree MD Signed By: <Electronically signed by Sundar Bang MDin OV> 05/30/24 1110 DD/ 1013 TD/TT: 05/30/24 1045 Bronzer: [facility] External Provider IMG CT PROCEDURES Final Result * (ABNORMAL) Glucose, Whole Blood (05/29/2024 12:31 PM EST) Only the most recent of2 resultswithin the time period is included. Glucose, Whole Blood 318(H) 60 - 115 mg/dL [facility] Comment:METER #: [id number] 05/29/2024 12:3 1 PM EST 05/29/2024 12:44 PM EST Generic External Data Provider LAB BLOOD ORDERAB LES Final Result Performing Organization Address [facility] de Phone Number [facility] [address] [place], [place] [phone] * (ABNORMAL) VENOUS BLOOD GAS (05/29/2024 11:02 AM EST) Only the most recent of3 resultswithin the time period is included. VBG pH 7.32 7.32 - 7.43 [facility] Comment:METER #: [id number] additional_comment: Sergei diehl VBG PCO2 39 mmHg [facility] Comment:METER #: [id number] additional_comment: Cb fazal VBG PO2 104 mmHg [facility] Comment:METER #: [id number] additional_comment: Sergei diehl VBG Base Excess -4.9 mmol/L [facility] Comment:METER #: [id number] additional_comment: Sergei diehl VBG HCO3 20(L) 22 - 26 mmol/L [facility] Comment:METER #: [id number] additional_comment: Sergei diehl O2 Sat, Juan Jose 98.0 % [facility] Comment:METER #: [id number] additional_comment: Sergei diehl 05/29/2024 11:0 2 AM EST 05/29/2024 11:07 AM EST Generic External Data Provider LAB BLOOD ORDERAB LES Final Result Performing Organization Address [facility] de Phone Number [facility] [address] [place] [address] [phone] * XR Chest 1 View (05/29/2024 10:44 AM EST) Only the most recent of4 resultswithin the time period is included. Anatomical Region Laterality Modality Chest Radiographic Bety ging 05/29/2024 10:4 4 AM EST Narrative 05/29/2024 11:36 AM EST ? [facility] ?[address] ?[place] [address] ?XRay Report ? Signed ? Patient: Muller, Heidy ?MR#: [id number] ?? 460 ? : 1955 ?Acct:[id number] ? Age/Sex: 69 / F ?ADM Date: 05/29/24 ? Loc: HO.ED ? Attending Dr: ? Ordering Physician: Jessika Treadwell ?? Date of Service: 05/29/24 ?? Procedure(s): XR chest 1V ?? Accession Number(s): [id number] ? cc: Sammy Vicente MD; Jessika Treadwell ? EXAMINATION: ?? XR CHEST ? CLINICAL INFORMATION: ?? SOB ? COMPARISON: ?? Chest x-ray . ? TECHNIQUE: ?? Frontal view of the [...] DD/ 1044 ? TD/TT: 05/29/24 1104 ? Bronzer: [facility] ? Procedure Note Daniella Watson - 05/29/[address] [address] XRay Report Signed Patient: Cruz Muller#: [id number] 460 : 6Acct:[id number] Age/Sex: 69 / FADM Date: 05/29/24 Loc: HO.ED Attending Dr: Ordering Physician: Jessika Treadwell Date of Service: 05/29/24 Procedure(s): XR chest 1V Accession Number(s): [id number] cc: Sammy Vicente MD; Jessika Treadwell EXAMINATION: [...] Orlando Dozier MD 05/29/2024 11:33 AM EST RP Dictated By: Orlando Dozier MD Signed By: <Electronically signed by Orlando Dozier MD in OV> 05/29/24 1133 DD/ 1044 TD/TT: 05/29/24 1104 Bronzer: MAUREEN [facility] External Provider IMG XR PROCEDURES Final Result * Lactic Acid (05/21/2024 3:45 PM EST) Only the most recent of2 resultswithin the time period is included. Lactic Acid 1.2 0.5 - 2.0 mmol/L [facility] 05/21/2024 3:45 PM EST 05/21/2024 3:55 PM EST Generic External Data Provider LAB BLOOD ORDERAB LES Final Result [facility] [address] [place] [phone] * (ABNORMAL) High Sensitivity Troponin I (05/21/2024 3:33 PM EST) TROPONIN I HIGH SENSITIVITY 25.9(H) <3.5 - 17.0 ng/L [facility] Comment:The Rivera high sens itivity Troponin-I results should beused in conjunction with other diagnostic information suchas ECG, clinical observations and information, and patientsymptoms to aid in the diagnosis of CO. 05/21/2024 3:33 PM EST 05/21/2024 3:36 PM EST us Generic External Data Provider LAB BLOOD ORDERAB LES Final Result [facility] [address] [place] [address] [phone] * (ABNORMAL) CBC auto differential (05/21/2024 3:33 PM EST) Only the most recent of2 resultswithin the time period is included. White Blood Count 9.3 4.8 - 10.8 X10*3/uL [facility] Red Blood Count 3.93(L) 4.20 - 5.50 X10*6/uL [facility] Hemoglobin 13.1 12.0 - 16.0 g/dl [facility] Hematocrit 40.2 37.0 - 47.0 % [facility] Mean Corpuscular Volume 102.3(H) 80.0 - 98.0 fL [facility] Mean Corpuscular Hemoglobin 33.3(H) 27.0 - 33.0 pg [facility] Mean Corpuscular HGB Conc 32.6 31.0 - 35.0 g/dl [facility] Red Cell Distribution Width 15.5 11.0 - 16.0 % [facility] Platelet Count 267 160 - 400 X10*3/uL [facility] Mean Platelet Volume 10.3 9.4 - 12.3 fL [facility] Neutrophils Percent Auto 74.5(H) 45 - 73 % [facility] Imm Gran Pct Auto 0.5(H) 0.0 - 0.4 % [facility] Lymphocytes Percent Auto 16.5(L) 20 - 40 % [facility] Monocytes Percent Auto 5.3 2 - 11 % [facility] Eosinophils Percent Auto 2.9 0 - 4 % [facility] Basophils Percent Auto 0.3 0 - 2 % [facility] NRBC Pct Auto 0.0 0.0 - 0.2 /100WBC [facility] Neutrophils Absolute Auto 6.9 2.0 - 8.3 x10*3/uL [facility] Imm Gran Abs Auto 0.05(H) 0.00 - 0.03 X10*3/uL [facility] Lymphocytes Absolute Auto 1.5 1.2 - 4.9 X10*3/uL [facility] Monocytes Absolute Auto 0.5 0.1 - 1.2 X10*3/uL [facility] Eosinophils Absolute Auto 0.3 0.0 - 0.4 X10*3/uL [facility] Basophils Absolute Auto 0.0 0.0 - 0.2 X10*3/uL [facility] NRBC Abs Auto 0.000 0.0 - 0.012 X10*3/uL [facility] 05/21/2024 3:33 PM EST 05/21/2024 3:36 PM EST us Generic External Data Provider LAB BLOOD ORDERAB LES Final Result [facility] [address] [place] [address] [phone] * (ABNORMAL) Prothrombin Time-INR (05/21/2024 3:33 PM EST) Prothrombin Time 10.1(L) 10.9 - 12.4 SEC [facility] INTERNATIONAL NORM RATIO 0.9 0.9 - 1.1 [facility] Comment:INTERNATIONAL NORMAL IZED RATIO (INR) REFERENCE RANGES Reference RangeFor patients not on anticoagulant therapy: 0.9 - 1.1INR ranges for oral anticoagulanttherapy:For prevention and treatment of venous thrombosis and pulmonary embolism: 2.0 - 3.0For acute myocardial infarction with aspirin therapy: 2.0 - 3.0For acute myocardial infarction without aspirin therapy: 3.0 - 4.0For patients with mechanical prosthetic heart valves: 2.5 - 3.5 05/21/2024 3:33 PM EST 05/21/2024 3:36 PM EST Generic External Data Provider LAB BLOOD ORDERAB LES Final Result Performing Organization Address [facility] Co de Phone Number [facility] [address] [place] [phone] * (ABNORMAL) B Type Natriuretic Peptide (BNP) (05/21/2024 3:33 PM EST) [facility] B Type Natriuretic Peptide 3,639(H) <100 pg/mL [facility] Comment:For those patients w ho are being treated with Natrecor(nesiritide, recombinant BNP), BNP testing should beperformed at least two hours post treatment in order toensure that only endogenous levels of BNP are detected. 05/21/2024 3:33 PM EST 05/21/2024 3:36 PM EST Generic External Data Provider LAB BLOOD ORDERAB LES Final Result Performing Organization Address [facility] Co de Phone Number [facility] [address] [place] [phone] * (ABNORMAL) Magnesium (05/21/2024 3:33 PM EST) [facility] Magnesium 2.9(H) 1.6 - 2.6 mg/dL [facility] 05/21/2024 3:33 PM EST 05/21/2024 3:36 PM EST Generic External Data Provider LAB BLOOD ORDERAB LES Final Result Performing Organization Address [facility] Co de Phone Number [facility] [address] [place] [phone] * (ABNORMAL) Hepatic Function Panel (05/21/2024 3:33 PM EST) [facility] Bilirubin, Total 0.4 0.0 - 1.0 mg/dL [facility] Bilirubin, Direct 0.1 0.0 - 0.5 mg/dL [facility] Aspartate Amino Transferase 31 5 - 31 U/L [facility] Alanine Aminotransferase 15 0 - 31 U/L [facility] Total Protein 8.3(H) 6.5 - 8.0 g/dL [facility] Albumin Level 4.3 3.5 - 5.0 g/dL [facility] Alkaline Phosphatase 151(H) 39 - 117 U/L [facility] 05/21/2024 3:33 PM EST 05/21/2024 3:36 PM EST us Generic External Data Provider LAB BLOOD ORDERAB LES Final Result [facility] [address] [place] [address] [phone] * (ABNORMAL) Basic Metabolic Panel (05/21/2024 3:33 PM EST) Sodium 131(L) 135 - 145 mmol/L [facility] Potassium 6.5(HH) 3.3 - 5.1 mmol/L [facility] Comment:Critical value for t est(s):POTS Results called to and readback by: ARNULFO Person calling: SALIERD Date:05/21/23 Time:1615 Chloride 89(L) 96 - 108 mmol/L [facility] Carbon Dioxide 27 22 - 29 mmol/L [facility] Anion Gap 22(H) 12 - 20 [facility] Urea Nitrogen (BUN) 40(H) 9 - 16 mg/dL [facility] Creatinine, Serum 7.90(HH) 0.5 - 1.4 mg/dL [facility] Comment:Critical value for t est(s): RALPH Results called to and readback by:ARNULFO Person calling: SALIERD Date:05/21/23 Time:1615 Creatinine Clr Calc Pharmacy TNP [facility] Comment:Unable to calculate eCrCL; all parameters not provided. Estimated Glomerular Filt Rate 5 [facility] Comment:Chronic Kidney Disea se: Estimated GFR < 60 mL/min/1.54c4Cgokcq Kidney Disease: Estimated GFR < 15 mL/min/1.73m2 Glucose 203(H) 60 - 115 mg/dL [facility] Calcium 11.6(H) 8.4 - 10.2 mg/dL [facility] 05/21/2024 3:33 PM EST 05/21/2024 3:36 PM EST Generic External Data Provider LAB BLOOD ORDERAB LES Final Result Performing Organization Address [facility] Co de Phone Number [facility] [address] [place] [phone] * SARS-CoV-2 RNA, Influenza A/B, and RSV RNA, Ql NAAT (05/21/2024 3:10 PM EST) Influenza A PCR NEGATIVE Negative [facility] Influenza B PCR NEGATIVE Negative [facility] Resp Syncy Virus RNA Qual PCR NEGATIVE Negative [facility] SARS COV2 PCR NEGATIVE Negative [facility] Comment:All test results mus t be correlated with clinical findings.Negative results do not preclude SARS-CoV2, influenza Avirus, influenza B virus and/or RSV infectionand should not be used as the sole basis for treatment orother patient management decisions. Negative results must becombined with clinical observations, patient history, andepidemiological information.This test has not been evaluated for monitoring treatment ofinfection.This test has been authorized by the FDA under an EmergencyUse Authorization (EUA) for use by authorized laboratories.Testing performed on the [employer] GeneXpert utilizingreal-time RT-PCR.All SARS CoV2 and positive influenza A/B results arereported to [facility]. 05/21/2024 3:10 PM EST 05/21/2024 3:15 PM EST us Generic External Data Provider LAB MICROBIOLOGY - GENERAL ORDERABLES Final Result Performing Organization Address [facility] Co de Phone Number [facility] [address] [place] [phone] * Drug Toxicology Monitoring Base Panel, w/Confirmation, Oral Fluid (04/11/2024 11:35 AM EST) [facility] Drug Tox Panel with Confirmation SEE NOTE [facility] Comment: DRUG TOX MONITORING BASE PANEL,W/CONF,ORAL FLUID:Amphetamines: ??NEGATIVE See Note 1 ??REFERENCE RANGE: <10 ng/mLCOMMENT: ??See Note 2Benzodiazepines: ??NEGATIVE See Note 1 ??REFERENCE RANGE: <0.50 ng/mLCOMMENT: ??See Note 2Buprenorphine: ??POSITIVE (Abnormal) See Note 1 ??REFERENCE RANGE: <0.10 ng/mL ?? Buprenorphine: ??5.26 (H) ?See Note 1 ? REFERENCE RANGE: <0.10 ng/mL ?? Naloxone: ??1.20 (H) ?See Note 1 ? REFERENCE <0.25 ng/mL ?? Norbuprenorphine: ??3.81 (H) ?? Norbuprenorphine is a metabolite of buprenorphine. ?See Note 1 ? REFERENCE RANGE: <0.50 ng/mLCOMMENT: ??See Note 2Cocaine: ??NEGATIVE See Note 1 ??REFERENCE RANGE: <5.0 ng/mLCOMMENT: ??See Note 2Fentanyl: ??NEGATIVE See Note 1 ??REFERENCE RANGE: <0.10 ng/mLCOMMENT: ??See Note 2Heroin Metabolite: ??NEGATIVE See Note 1 ??REFERENCE RANGE: <1.0 ng/mLCOMMENT: ??See Note 2Marijuana: ??NEGATIVE See Note 1 ??REFERENCE RANGE: <2.5 ng/mLCOMMENT: ??See Note 2Methadone: ??NEGATIVE See Note 1 ??REFERENCE RANGE: <5.0 ng/mLCOMMENT: ??See Note 2Opiates: ?? NEGATIVE See Note 1 ??REFERENCE RANGE: <2.5 ng/mLCOMMENT: ??See Note 2Tapentadol: ??NEGATIVE See Note 1 ??REFERENCE RANGE: <5.0 ng/mLCOMMENT: ??See Note 2Tramadol: ??NEGATIVE See Note 1 ??REFERENCE RANGE: <5.0 ng/mLCOMMENT: ??See Note 2Note 1:This test was developed and its analytical performancecharacteristics have been determined by [facility]. It has not been cleared or approved by theA. This assay has been validated pursuant to the CLIAregulations and is used for clinical purposes.Note 2:For additional information, please refer to:http://education.NurseLiability.com/faq/FMO841(This link is being provided for informational/educational purposes only.)This drug testing is for medical treatment only.Analysis was performed as non-forensic testing andthese results should be used only by healthcareproviders to render diagnosis or treatment, or tomonitor progress of medical conditions.For assistance with interpreting these drug results,please contact a [employer] ToxicologySpecialist: [phone] ( ), M-F,8am-6pm EST.THIS TEST PERFORMED AT:[facility] [address] [phone] DIRECTOR: JUANCHO NINO MD Oral Fluid 04/11/2024 11:3 5 AM EST 04/11/2024 1:49 PM EST us Messi Mccollum MD LAB BODY FLUIDS AND STOOLS ORD ERABLES Final Result [facility] [address] [place] [phone] * XR Chest 2 Views (04/07/2024 3:31 PM EST) Anatomical Region Laterality Modality Chest Radiographic Bety ging 04/07/2024 3:31 PM EST Narrative 04/08/2024 8:57 AM EST ?[facility] ?[address] ?[place] [address] ?XRay Report ? Signed ? Patient: Muller, Heidy ?MR#: [id number] ?? [id number] ? : 1955 ?Acct:[id number] ? Age/Sex: 69 / F ?ADM Date: 11/18/24 ? Loc: HO.HHCX ? Attending Dr: Sebastián Lora MD ? Ordering Physician: Sebastián Lora MD ?? Date of Service: 04/07/24 ?? Procedure(s): XR chest 2V ?? Accession Number(s): [id number] ? cc: Sebastián Lora MD ? EXAMINATION: ?? XR CHEST ? CLINICAL INFORMATION: ?? cough x 3 days in a patient w/ h/o COPD ? COMPARISON: ?? 12/09/2023 ? TECHNIQUE: ?? Frontal and lateral views of the chest were obtained. ? FINDINGS: ?? Right-sided central venous catheter is unchanged in position, ?? terminating at the caval atrial junction. The cardiomediastinal ?? silhouette is stable. Central bronchovascular markings appear somewhat ?? more prominent than on the prior examination. No focal pneumonia is ?? detected. There are no pleural effusions. ? XR/XR chest 2V ?? IMPRESSION: ?? Increased central bronchovascular markings, perhaps on the basis of ?? bronchitis or reactive airways disease, or developing congestive heart ?? failure. ? Electronically signed by: ??Nicolas Araujo MD ??04/08/2024 08:54 AM EST RP ? Dictated By: ?Nicolas Araujo MD ? Signed By: ?<Electronically signed by Nicolas Araujo MD in OV> ?04/08/24 0854 ? DD/ 1531 ? TD/TT: 04/07/24 1600 ? Bronzer: ? Procedure Note Daniella [place] - 04/08/[address] [address] XRay Report Signed Patient: Cruz MullerMR#: [id number] : 6Acct:[id number] Age/Sex: 69 / FADM Date: 04/07/24 Loc: HO.HHCX Attending Dr: Sebastián Lora MD Ordering Physician: Sebastián Lora MD Date of Service: 04/07/24 Procedure(s): XR chest 2V Accession Number(s): [id number] cc: Sebastián Lora MD EXAMINATION: XR CHEST CLINICAL INFORMATION: cough x 3 days in a patient w/ h/o COPD COMPARISON: 12/09/2023 TECHNIQUE: Frontal and lateral views of the chest were obtained. FINDINGS: Right-sided central venous catheter is unchanged in position, terminating at the caval atrial junction. The cardiomediastinal silhouette is stable. Central bronchovascular markings appear somewhat more prominent than on the prior examination. No focal pneumonia is detected. There are no pleural effusions. XR/XR chest 2V IMPRESSION: Increased central bronchovascular markings, perhaps on the basis of bronchitis or reactive airways disease, or developing congestive heart failure. Electronically signed by: Nicolas Araujo MD 04/08/2024 08:54 AM EST Dictated By: Nicolas Araujo MD Signed By: <Electronically signed by Nicolas Araujo MD in OV> 04/08/24 0854 DD/ 1531 TD/TT: 04/07/24 1600 Bronzer: Sebastián Lora MD IMG XR PROCEDURES Final Res ult * (ABNORMAL) POCT HGB A1C (03/11/2024 9:16 AM EDT) Pathologist [facility] Hemoglobin A1C 7.0(A) 4.0 - 6.0 % QC Media Lot # [id number] Lot# Expiration Date [id number] Blood 03/11/2024 9:16 AM EDT Sammy Whitehead MD POINT OF CARE TEST EN TER/EDIT ORDERABLES Final Result * Thin[facility] Imaging Pap and HPV mRNA E6/E7 (12/05/2023 9:53 AM EDT) Pathologist [facility] HPV nRNA E6/E7 Not Detected Not Detected [facility] Comment:Methodology: Transcr iption-Mediated AmplificationThis assay detects E6/E7 viral messenger RNA (mRNA) from 14high-risk HPV types (16,18,31,33,35,39,45,51,52,56,58,59,66,68).Cervical sources are required for HPV testing.If a vaginal source from a patient who has had atotal hysterectomy with removal of cervix wassubmitted, please contact the testing laboratoryfor alternative testing options.For additional information, please refer tohttp://education.NurseLiability.com/faq/CHR409o0(This link if provided for information/educational purposes only.)THIS TEST WAS PERFORMED AT:[facility] [address] [phone] JUNE MD SOURCE: SEE NOTE [facility] Comment:None given Report Status: [facility] Clinical Information: SEE NOTE [facility] Comment:None given LMP: SEE NOTE [facility] Comment:NONE GIVEN Prev. PAP: SEE NOTE [facility] Comment:NONE GIVEN Prev. BX: SEE NOTE [facility] Comment:NONE GIVEN Statement Of Adequacy: SEE NOTE [facility] Comment:Satisfactory for amandeep luation.Endocervical/transformation zone component absent. General Categorization: [facility] Interpretation/Result: SEE NOTE [facility] Comment:Cytology Results: Ne gative for intraepitheliallesion or malignancy. Cytology Comment SEE NOTE [facility] Comment:This Pap test has be en evaluated with computerassisted technology. Outsewer: SEE NOTE [facility] Comment:DMM, CT(ASCP)CT scre ening location: [address] [address] Review Outsewer: [facility] Pathologist [facility] PAP Infection [facility] See Note SEE [facility] Comment:EXPLANATORY NOTE:The Pap is a screening test for cervical cancer. It isnot a diagnostic test and is subject to false negativeand false positive results. It is most reliable when asatisfactory sample, regularly obtained, is submittedwith relevant clinical findings and history, and whenthe Pap result is evaluated along with historic andcurrent clinical information. 12/05/2023 9:53 AM EDT 12/05/2023 4:42 PM EDT [facility] - 12/12/2023 5:23 PM EDT SEE SCANNED RESULTS IN EMR us Geena Umana CNM LAB PATHOLOGY ORDERABLES Final Result Performing Organization Address [facility]/State/ZIP Co de Phone Number [facility] [address] [place] [address] [phone] * BI Mammogram Screening Tomosynthesis Bilateral (11/07/2023 2:55 PM EDT) Anatomical Region Laterality Modality Breast Bilateral Mammography 11/07/2023 2:55 PM EDT Narrative 12/05/2023 11:54 AM EDT ? [facility] ? [address] ?[place] [address] ? Mammography Report ? Signed ? Patient: Cruz Muller ?MR#: [id number] ? : 1955 ?Acct:[id number] ? Age/Sex: 68 / F ?ADM Date: 11/07/23 ? Loc: HO.MAMMO ? Attending Dr: Sammy Vicente MD ? Ordering Physician: Sammy Vicente MD ?Resu ?? lts: 1Negative ? Date of Service: 11/07/23 ?Follow Up: 1 Year From Orig ?? inal Mammogram ? Procedure(s): MM tomosynthesis screening BI ?? Accession Number(s): [id number] ? cc: Sammy Vicente MD ? EXAMINATION: ?? MM SCREENING DIGITAL BREAST TOMOSYNTHESIS, BILATERAL ? CLINICAL INFORMATION: ? Screening. Asymptomatic. ? COMPARISON: ?? Mammography: This study is compared with prior exams dating back to ?? 2019. ? TECHNIQUE: ?? Digital breast tomosynthesis is performed in both the craniocaudal and ?? mediolateral oblique views along with computer-aided detection (CAD). ?? Synthesized 2D images are generated from the tomosynthesis. ? FINDINGS: ?? There are scattered areas of fibroglandular density (ACR BI-RADS breast ?? composition Category b). ? There are no significant masses, abnormal calcifications, or other ?? abnormalities. ?? There is a double-lumen central venous catheter in the overlying the ?? right breast. This somewhat limits compression of the right breast in ?? the CC and MLO projections. ? MM/MM tomosynthesis screening BI ?? IMPRESSION: ?? No mammographic evidence of malignancy. ? ASSESSMENT: ? BI-RADS BI-RADS 1 - Negative ? RECOMMENDATION: ?? Routine annual mammography screening. ? 1 year F/U ? This examination should not preclude the clinical evaluation of a ?? suspicious palpable abnormality. ? This patient's information was entered into a reminder system with a ?? target due date for their next mammogram. ? Dictated By: ?Emelina Goldman MD ? Signed By: ?<Electronically signed by Emelina Goldman MD in OV> ? 12/05/23 1150 ? DD/ 1455 ? TD/TT: ? Bronzer: ? Procedure Note Daniella [place] - 12/05/2023 [facility] [address] [place] [address] Dr. [place], [place] [address] Mammography Report Signed Patient: Cruz Muller MMR#: [id number] : 6Acct:[id number] Age/Sex: 68 / FADM Date: 11/07/23 Loc: HO.MAMMO Attending Dr: Sammy Vicente MD Ordering Physician: Sammy Vicente MDResu lts: 1Negative Date of Service: 11/07/23Follow Up: 1 Year From [facility] ina Mammogram Procedure(s): MM tomosynthesis screening BI Accession Number(s): [id number] cc: Sammy Vicente MD EXAMINATION: MM SCREENING DIGITAL BREAST TOMOSYNTHESIS, BILATERAL CLINICAL INFORMATION: Screening. Asymptomatic. COMPARISON: Mammography: This study is compared with prior exams dating back to 2019. TECHNIQUE: Digital breast tomosynthesis is performed in both the craniocaudal and mediolateral oblique views along with computer-aided detection (CAD). Synthesized 2D images are generated from the tomosynthesis. FINDINGS: There are scattered areas of fibroglandular density (ACR BI-RADS breast composition Category b). There are no significant masses, abnormal calcifications, or other abnormalities. There is a double-lumen central venous catheter in the overlying the right breast. This somewhat limits compression of the right breast in the CC and MLO projections. MM/MM tomosynthesis screening BI IMPRESSION: No mammographic evidence of malignancy. ASSESSMENT: BI-RADS BI-RADS 1 - Negative RECOMMENDATION: Routine annual mammography screening. 1 year F/U This examination should not preclude the clinical evaluation of a suspicious palpable abnormality. This patient's information was entered into a reminder system with a target due date for their next mammogram. Dictated By: Emelina Goldman MD Signed By: <Electronically signed by Emelina Goldman MD in OV> 12/05/23 1150 DD/ 1455 TD/TT: Bronzer: us Sammy Whitehead MD IMG BI PROCEDURES Fin al Result * (ABNORMAL) LIPID PANEL, STANDARD (11/23/2020 9:54 AM EDT) Chol/HDLC Ratio 4.7 <5.0 (calc) [facility] Cholesterol, Total 222(H) <200 mg/dL [facility] HDL Cholesterol 47(L) > OR = 50 mg/dL [facility] LDL Cholesterol 140(H) mg/dL (calc) [facility] Comment: Reference range: <100 ?? Desirable range <100 mg/dL for primary prevention; ?? <70 mg/dL for patients with CHD or diabetic patients ?? with > or = 2 CHD risk factors. ?? LDL-C is now calculated using the Angelica ?? calculation, which is a validated novel method providing ?? better accuracy than the Friedewald equation in the ?? estimation of LDL-C. ?? Chaitanya TAVAREZ et al. CARLOS. 2013;310(19): 1499-6187 ?? (http://[employer]-Wizards.CafeMom/faq/GHP345) Non-HDL Cholesterol 175(H) <130 mg/dL (calc) [facility] Comment: For patients with diabetes plus 1 major ASCVD risk ?? factor, treating to a non-HDL-C goal of <100 mg/dL ?? (LDL-C of <70 mg/dL) is considered a therapeutic ?? option. Triglycerides 213(H) <150 mg/dL [facility] Comment: ?? If a non-fasting specimen was collected, consider repeat triglyceride testing on a fasting specimen if clinically indicated. ?? Nico et al. J. of Clin. Lipidol. 2015;9:129-169. ?? 11/23/2020 9:54 AM EDT us Sammy Whitehead MD LAB BLOOD ORDERABLES Final Result [facility] [address] from Last 3 Months or Most Recently Relevant to Health Maintenance Insurance [address] [place] [phone] [facility] Care Teams Mine Safety Director Relationship Specialty Start Date End Date Sammy Reilly MD [address] [place] [phone] PCP - General Internal Medicine 12/23/13 [employer] 04/08/22 Tj Larose MD Digital Account Manager Nephrology 04/10/24
--- OUTSIDE RECORDS SUMMARY | 2024-06-16 17:42 | XMS_ITS | Encounter Summary ---
Author Organization [employer] Address [address] [facility] 7t [place] [address] Care Team Providers Care Tire Maker Name Role Phone Sammy Reilly MD Primary Care Provide r Reason for Visit * Reason Comments Med Refill Encounter Details Date Type Department Care Team ([facility] Contact Info) Description 11/10/2022 Refill [facility] [address] [place], [place] [phone] Hattie Gonzales MD [address] [place], [place] [phone] Social History Tobacco Use Types Packs/Day Years [...] suspected to have Coronavirus/COVID-19? No / Unsure 11/10/2022 11:41 AM EDT documented as of this encounter Plan of Treatment Upcoming Encounters Date Type Department Care Team ([facility] Contact Info) Description 06/20/2024 10:00 AM EST Office Visit [facility] [address] [place] [address] Messi Mccollum MD [address] [place] [address] documented as of this encounter Goals Goal [...] documented as of this encounter Care Teams Tire Maker Relationship Specialty Start Date End Date Sammy Reilly MD [address] [place] [address] PCP - General Internal Medicine 12/23/13 [employer] 04/08/22 Tj Larose MD Cut Plug Packer Nephrology 04/10/24 documented as of this encounter
--- OUTSIDE RECORDS SUMMARY | 2024-06-16 17:42 | XMS_ITS | Encounter Summary ---
Author Organization [employer] Address [address] [facility] 7t [place] [address] Care Team Providers Care Bag Worker Name Role Phone Sammy Reilly MD Primary Care Provide r Reason for Visit * Reason Comments Med Refill Encounter Details Date Type Department Care Team (Late Contact Info) Description 05/30/2022 Refill [facility] MEDICINE [address] [place] [address] [phone] Sammy Reilly MD [address] [place] [address] [phone] Social History Tobacco Use Types Packs/Day Years [...] suspected to have Coronavirus/COVID-19? No / Unsure 05/29/2022 11:41 AM EST documented as of this encounter Plan of Treatment Upcoming Encounters Date Type Department Care Team (Late Contact Info) Description 06/20/2024 10:00 AM EST Office Visit [facility] [address] [place] [address] [phone] Messi Mccollum MD [address] [place] [address] [phone] documented as of this encounter Visit Diagnoses Not on filedocumented in this encounter Care Teams Bag Worker Relationship Specialty Start Date End Date Sammy Reilly MD [address] [place] [phone] PCP - General Internal Medicine 12/23/13 [employer] 04/08/22 Tj Larose MD Scarifier Operator Nephrology 04/10/24 documented as of this encounter
--- OUTSIDE RECORDS SUMMARY | 2024-06-16 17:42 | XMS_ITS | Encounter Summary ---
Author Organization [employer] Address [address] [facility] 7t [place] [address] Care Team Providers Care Specimen Technician Name Role Phone Sammy Reilly MD Primary Care Provide r Reason for Visit * Reason Comments Med Refill Encounter Details Date Type Department Care Team ([facility] st Contact Info) Description 05/26/2024 Refill [facility] MED[facility] [address] [place], [place] [phone] Sammy Reilly MD [address] [place], [place] [phone] Constipation due to opioid therapy; Chronic obstructive [...] the past 12 months, has t he [employer], gas, oil or water company threatened to [...] Description 06/20/2024 10:00 AM EST Office Visit [facility] [address] [place] [phone] Messi Mccollum MD [address] [place] [phone] documented as of this encounter Goals Goal Patient Goal Type Associated Problems Recent Progress Patient-Stated? Author Check and record your blood sugars as directed Blood Pressure No Jimbo Burris PharmD Short-term: Promote adherence to treatment regimen General No Jimbo Burris PharmD Take your medication every day Lifestyle No Jimbo Burris PharmD documented as of this encounter Visit Diagnoses Diagnosis Constipation due to opioid therapy Chronic obstructive pulmonary disease, unspecified COPD type (CMS/HCC) documented in this encounter Additional Health Concerns Assessment Noted Time PHQ-9 Depression Total Score: 11 024 9:25 AM EDT documented as of this encounter Care Teams Specimen Technician Relationship Specialty Start Date End Date Sammy Reilly MD [address] [place] [phone] PCP - General Internal Medicine 12/23/13 [employer] 04/08/22 Tj Larose MD Cage Supervisor Nephrology 04/10/24 documented as of this encounter
--- OUTSIDE RECORDS SUMMARY | 2024-06-16 17:42 | XMS_ITS | Encounter Summary ---
Author Organization [employer] Address [address] [facility] 7t [place] [address] Care Team Providers Care Mapping Editor Name Role Phone Sammy Reilly MD Primary Care Provide r Reason for Visit * Reason Comments Med Refill Encounter Details Date Type Department Care Team ([facility] st Contact Info) Description 10/21/2023 Refill [facility] 230 [place], [place] [phone] Sammy Reilly MD [address] [place], [place] [phone] Chronic obstructive pulmonary disease, unspecified COPD type [...] Description 06/20/2024 10:00 AM EST Office Visit [facility] [address] [place] [phone] Messi Mccollum MD [address] [place] [phone] documented as of this encounter Goals Goal [...] documented as of this encounter Care Teams Mapping Editor Relationship Specialty Start Date End Date Sammy Reilly MD [address] [place] [phone] PCP - General Internal Medicine 12/23/13 [employer] 04/08/22 Tj Larose MD Credit Authorizer Nephrology 04/10/24 documented as of this encounter
--- OUTSIDE RECORDS SUMMARY | 2024-06-16 17:42 | XMS_ITS | Encounter Summary ---
Author Organization [employer] Address [address] [facility] [address] 7[address] [place] [address] Care Team Providers Care Engineering Production Liaison Name Role Phone Sammy Reilly MD Primary Care Provide r Reason for Visit * Reason Comments Med Refill Encounter Details Date Type Department Care Team ([facility] st Contact Info) Description 10/23/2023 Refill [facility] [address] [place], [place] [phone] Sammy Reilly MD [address] [place] [address] Constipation due to opioid therapy Social History Tobacco Use Types Packs/Day Years [...] Description 06/20/2024 10:00 AM EST Office Visit [facility] MED[facility]INE [address] [place] [phone] Messi Mccollum MD [address] [place] [phone] documented as of this encounter Goals Goal [...] Diagnoses Diagnosis Constipation due to opioid therapy documented in this encounter Additional Health Concerns Assessment Noted Time PHQ-9 Depression Total Score: 11 024 9:25 AM EDT documented as of this encounter Care Teams Engineering Production Liaison Relationship Specialty Start Date End Date Sammy Reilly MD [address] [place] [phone] PCP - General Internal Medicine 12/23/13 [employer] 04/08/22 Tj Larose MD Instrument Lens Grinder Nephrology 04/10/24 documented as of this encounter
--- OUTSIDE RECORDS SUMMARY | 2024-06-16 17:42 | XMS_ITS | Encounter Summary ---
Author Organization [employer] Address [address] [facility] [address] 7t [place] [address] Care Team Providers Care Foreign Language Professor Name Role Phone Sammy Reilly MD Primary Care Provide r Reason for Visit * Reason Onset Date Comments Medication Question 05/26/2024 Encounter Details Date Type Department Care Team ([facility] Contact Info) Description 05/26/2024 Telephone [facility] MEDICINE [address] [place], [place] [phone] Sammy Reilly MD 230 [place], [place] [phone] Medication Question Social History Tobacco Use Types Packs/Day Years [...] the past 12 months, has t he [employer], gas, oil or water [employer] threatened to shut off services in your [...] encounter Miscellaneous Notes * Telephone Encounter - Ling English RN - 05/28/2024 10:53 AM EST TC placed to [place] with [facility] and LVM to call back the office * Telephone Encounter - Michele Emerson - 05/26/2024 2:51 PM EST TC from [place] with [facility] stating that there were some medication changes. NO Insulin was prescribed Lasartan 50 mg was added And Calcium acetate was changed to 2 tabs 3 times a day. If any questions contact [place] at [phone] documented in this encounter Plan of Treatment Upcoming Encounters Date Type Department Care Team (Late st Contact Info) Description 06/20/2024 10:00 AM EST Office Visit [facility] MEDICINE [address] [place] [address] Messi Mccollum MD [address] [place], [place] [phone] documented as of this encounter Goals Goal [...] documented as of this encounter Care Teams Foreign Language Professor Relationship Specialty Start Date End Date Sammy Reilly MD [address] [place] [phone] PCP - General Internal Medicine 12/23/13 [employer] 04/08/22 Tj Larose MD Sales Department Clerk Nephrology 04/10/24 documented as of this encounter
--- OUTSIDE RECORDS SUMMARY | 2024-06-16 17:42 | XMS_ITS | Encounter Summary ---
Author Organization [employer] Address [address] [facility] 7t [place] [address] Care Team Providers Care Machine Pecan Picker Name Role Phone Sammy Reilly MD Primary Care Provide r Reason for Visit * Reason Onset Date Comments Paperwork/Forms 10/22/2023 Encounter Details Date Type Department Care Team ([facility] Contact Info) Description 10/22/2023 Telephone [facility] MEDICINE [address] [place], [place] [phone] Sammy Reilly MD [address] [place], [place] [phone] Paperwork/Forms Social History Tobacco Use Types Packs/Day Years [...] your housing situation today? I have johnnie lena 10/18/[address] you li [...] encounter Miscellaneous Notes * Telephone Encounter - Jessica Blount - 10/22/2023 3:48 PM EDT TC from pt calling stating that need a PA for medication Lokelma 10 grams powder pack that was prescribe by ER . PCP Dr. Strickland documented in this encounter Plan of Treatment Upcoming Encounters Date Type Department Care Team (Late st Contact Info) Description 06/20/2024 10:00 AM EST Office Visit [facility] MEDICINE [address] [place] [address] Messi Mccollum MD [address] [place] [address] documented as of this encounter Goals Goal [...] documented as of this encounter Care Teams Machine Pecan Picker Relationship Specialty Start Date End Date Sammy Reilly MD [address] [place] [address] PCP - General Internal Medicine 12/23/13 [employer] 04/08/22 Tj Larose MD Serology Teacher Nephrology 04/10/24 documented as of this encounter
--- OUTSIDE RECORDS SUMMARY | 2024-06-16 17:42 | XMS_ITS ---
Author Organization [facility] Address [address] [place] [address] Care Team Providers Care Aquatics Instructor Name Role Phone Marco A Whitehead MD, Sammy Primary Care Provide r Toma Schroeder Jr, Joao Chua Encounters Encounter Location Date Provider Diagnosis [facility] [address] [place] [address] 01/18/2024 Joao Schroeder Jr PLAN OF TREATMENT Next Appt Details Provider Name:Joao cedillo Jr, 09/17/2024 10:40:00 AM, [address], [address], [place], [address],
--- OUTSIDE RECORDS SUMMARY | 2024-06-16 17:42 | XMS_ITS | Encounter Summary ---
Author Organization [facility] Address [address] [place] [address] Phone Care Team Providers Care Bottling Room Worker Name Role Phone Unavailable Primary Care Provider Unavailabl e Encounter Details Date Type Department Care Team (Late st Contact Info) Description 11/10/2021 Office Communication [facility] [address] [place] [address] Sigrid Hollingsworth, CELIO Social History Tobacco Use Types Packs/Day Years Used Date Smoking Tobacco: Every Day Alcohol Use Standard Drinks/Week Comments No 0 (1 standard drink = 0.6 oz pur e alcohol) Comments Unknown Sex and Gender Information Value Date Recorded Sex Assigned at Not on file Legal Sex Female 5:08 PM EST Gender Identity Not on file Sexual Orientation Not on file COVID-19 Exposure Response Date Recorded In the last 10 days, have yo u been in contact with someone who was confirmed or suspected to have Coronavirus/COVID-19? No / Unsure 11/10/2021 4:47 PM EDT documented as of this encounter Plan of Treatment Not on file documented as of this encounter Visit Diagnoses Not on filedocumented in this encounter
--- OUTSIDE RECORDS SUMMARY | 2024-06-16 17:42 | XMS_ITS | Encounter Summary ---
Author Organization [employer] Address [address] [facility] 7t [place] [address] Care Team Providers Care Machining Engineer Name Role Phone Sammy Reilly MD Primary Care Provide r Encounter Details Date Type Department Care Team ([facility] Contact Info) Description 04/07/2024 Orders Only [facility] MED & PEDS [address] [place], [place] [phone] Sebastián Lora MD [address] [place], [place] [phone] Social History Tobacco Use Types Packs/Day Years [...] 10:00 AM EST Office Visit [facility] MEDICINE [address] [place] [phone] Messi Mccollum MD [address] [place] [address] documented as of this encounter Goals Goal [...] documented as of this encounter Care Teams Machining Engineer Relationship Specialty Start Date End Date Sammy Reilly MD [address] [place] [address] PCP - General Internal Medicine 12/23/13 [employer] 04/08/22 Tj Larose MD Fish Hatchery Superintendent Nephrology 04/10/24 documented as of this encounter
--- OUTSIDE RECORDS SUMMARY | 2024-06-16 17:42 | XMS_ITS | Encounter Summary ---
Author Organization [employer] Address [address] [facility] 7t [place] [address] Care Team Providers Care Newspaper Distributor Supervisor Name Role Phone Sammy Reilly MD Primary Care Provide r Reason for Visit * Reason Onset Date Comments Med Refill 04/25/2023 Encounter Details Date Type Department Care Team ([facility] st Contact Info) Description 04/25/2023 Telephone [facility] MEDICINE [address] [place], [place] [phone] Sammy Reilly MD [address] [place], [place] [phone] Med Refill Social History Tobacco Use Types Packs/Day Years [...] the past 12 months, has t he [employer], gas, oil or water company threatened to [...] encounter Miscellaneous Notes * Telephone Encounter - Sandra Rapp LPN - 04/25/2023 3:21 PM EST Medications pended to PCP. * Telephone Encounter - Jennifer Ba - 04/25/2023 2:47 PM EST Tc from [facility] requesting a refill for Carvedilol 6.25 mg , Hydralazine 100 mg , Hydrocortisone 2.5%, Albuterol inhaler, Asprin 81 mg, Melatonin 5 mg, Isosorbide 30 mg, Nicotine 14 mg patch, Docusate 100 mg, documented in this encounter Plan of Treatment Upcoming Encounters Date Type Department Care Team (Late st Contact Info) Description 06/20/2024 10:00 AM EST Office Visit [facility] MEDICINE [address] [place] [address] Messi Mccollum MD [address] [place] [address] documented as of this encounter Goals Goal [...] documented as of this encounter Care Teams Newspaper Distributor Supervisor Relationship Specialty Start Date End Date Sammy Reilly MD [address] [place] [address] PCP - General Internal Medicine 12/23/13 [employer] 04/08/22 Tj Larose MD Business Law Instructor Nephrology 04/10/24 documented as of this encounter
--- OUTSIDE RECORDS SUMMARY | 2024-06-16 17:42 | XMS_ITS | Clinical Summary ---
Author Organization [facility] Address [address] [place] [address] Care Team Providers Care Manager Application Development Name Role Phone Sammy Strickland MD Primary Care Provider Allergies No known active allergies Medications Medication Sig Dispensed Refills Start Date End Date Status albuterol (PROVENTIL) (0.083%) 2.5 mg/3 mL nebulizer solution Take 3 mL (2.5 mg total) by nebulization 3 times daily (every 8 hours) as needed for wheezing. Active amLODIPine (NORVASC) 10 MG tablet Take 1 tablet (10 mg total) by mouth daily. Active aspirin enteric coated 81 MG EC tablet Take 1 tablet (81 mg total) by mouth daily. Active buprenorphine-nalo xone (SUBOXONE) 8-2 mg per SL film Place 2 Film under the tongue daily. Max Daily Amount: 2 Film Active docusate sodium (COLACE) 100 MG capsule Take 1 capsule (100 mg total) by mouth 2 (two) times a day as needed for constipation. Active fluticasone (FloVENT HFA) 110 mcg/puff inhaler Inhale 1 puff 2 (two) times a day. Active melatonin 3 MG Tab tablet Take 2 tablets (6 mg total) by mouth nightly as needed (As needed for sleep). Active ondansetron (ZOFRAN) 4 MG tablet Take 1 tablet (4 mg total) by mouth 2 times daily (every 12 hours) as needed for nausea or vomiting. Active PANTOprazole (PROTONIX) 40 MG EC tablet Take 1 tablet (40 mg total) by mouth daily. Active senna (SENOKOT) 8.6 MG Tab tablet Take 2 tablets by mouth daily as needed for constipation. Active tiotropium (SPIRIVA) [address] 1 capsule (18 mcg total) into inhaler and inhale daily. Active cloNIDine (CATAPRES) 0.2 MG tabletIndications: Pulmonary edema Take 1 tablet (0.2 mg total) by mouth 3 (three) times a day. 21 tablet 04/07/2022 Active hydrALAZINE (APRESOLINE) 100 MG tabletIndications: Pulmonary edema Take 1 tablet (100 mg total) by mouth every 8 (eight) hours around the clock. 21 tablet 04/07/2022 Active isosorbide dinitrate (ISORDIL) 30 MG tabletIndications: Pulmonary edema Take 1 tablet (30 mg total) by mouth 3 (three) times a day in the morning, mid-day and early evening. 21 tablet 04/07/2022 Active carvedilol (COREG) 6.25 MG tabletIndications: Pulmonary edema Take 1 tablet (6.25 mg total) by mouth 2 (two) times a day with meals. 14 tablet 04/07/2022 Active gabapentin (NEURONTIN) 300 MG capsuleIndications :Pulmonary edema Take 1 capsule (300 mg total) by mouth daily. 30 capsule 04/07/2022 Active insulin glargine (LANtus/SEMGLEE) 100 units/mL injectionIndicatio ns:Pulmonary edema Inject 0.02 mL (2 Units total) under the skin nightly. 10 mL 04/07/2022 Active Alcohol Swabs 70 % PadsIndications:Ac ambler respiratory failure with hypoxia (HCC) Use as directed. 100 Pad 04/07/2022 Active Insulin Syringe-Needle U-100 31G X 5/16 0.3 ML MiscIndications:Ac ambler respiratory failure with hypoxia (HCC) Please check with your primary care provider. 100 each 04/07/2022 Active Active Problems Problem Noted Date Diagnosed Date Respiratory failure 03/27/2022 Social History Tobacco Use Types Packs/Day Years Used Date Smoking Tobacco: Never Assessed AUDIT-C Answer Date Recorded Q1: How often do you have a drink containing alcohol? Never 03/28/2022 Q2: How many drinks containi ng alcohol do you have on a typical day when you are drinking? Patient does not drink 11/08/202 2 Q3: How often do you have si x or more drinks on one occasion? Never 03/28/2022 Sex and Gender Information Value Date Recorded Sex Assigned at Not on file Gender Identity Not on file Sexual Orientation Not on file Last Filed Vital Signs Vital Sign Reading Time Taken Comments Blood Pressure 154/68 04/07/2022 1:49 PM EST Pulse 68 04/07/2022 9:14 AM EST Temperature 36.1 ??C (97 ??F) 04/07/2022 4:29 AM EST Respiratory Rate 18 04/07/2022 4:29 AM EST Oxygen Saturation 97% 04/07/2022 4:29 AM EST Inhaled Oxygen Concentration - - Weight 63.6 kg (140 lb 3.4 oz) 04/07/2022 4:41 A M EST Height 154.9 cm (5' 0.98 ) 04/01/2022 9:45 AM ES T Body Mass Index 26.51 04/01/2022 9:45 AM EST Plan of Treatment Health Maintenance Due Date Last Done Comments Hepatitis C Virus Screening 1955 DTaP/Tdap/Td Vaccines (1 - Tdap) 1975 Pneumococcal Vaccines 50+ (1 of 2 - PCV) 1975 Hepatitis B Vaccines (1 of 3 - Risk Dialysis 4-dose series) 1976 Mammogram 1996 Colonoscopy 2001 Zoster (Shingles) Vaccine (1 of 2) 2006 RSV Vaccine 60 years and old er and Patients (1 - Risk 60-74 years 1-dose series) 2016 DXA Bone Density (Females,Ages 65 and older) Influenza Vaccine 12/20/2023 COVID-19 Vaccine ( season) 2024 Advance Directives * Full Code (Latest Code Status on File) Date Activated Date Inactivated Comments 03/27/2022 6:52 AM Care Teams Manager Application Development Relationship Specialty Start Date End Date Sammy Strickland MD [address] [place] [address] [facility] [place] [address] PCP - General 03/27/22
--- OUTSIDE RECORDS SUMMARY | 2024-06-16 17:42 | XMS_ITS | Encounter Summary ---
Author Organization [employer] Address [address] [facility] 7t [place] [address] Care Team Providers Care Sales Training Representative Name Role Phone Sammy Reilly MD Primary Care Provide r Reason for Visit * Reason Onset Date Comments Referral 09/14/2022 Encounter Details Date Type Department Care Team ([facility] st Contact Info) Description 09/14/2022 Telephone [facility] MEDICINE [address] [place], [place] [phone] Sammy Reilly MD [address] [place], [place] [phone] Referral Social History Tobacco Use Types Packs/Day Years Used Date Smoking Tobacco: Some Days Cigarettes Smokeless Tobacco: Never Alcohol Use Standard Drinks/Week [...] suspected to have Coronavirus/COVID-19? No / Unsure 09/15/2022 11:43 AM EDT documented as of this encounter Miscellaneous Notes * Telephone Encounter - Kinza Escamilla RN - 09/14/2022 2:57 PM EDT T/C returned to [facility] re below message. Heidy stated pt was suppose to mention needing referrals for GI and for Pulmonary. Pt has had chronic nausea and constipation as well as hemorrhoids with rectal bleeding. Also stated she was wanting a pulmonary referral for the chronic SOB and COPD that was worse when she kept getting hospitalized the last few months. Also stated they have been trying to get healthcare proxy paperwork and to see if we can possibly have her sign it during her next appt. Heidy stated Chelly who is her COMMUNICATIONS PLANNER is the only who fully care for her and keeps her going to appts, she also has [facility] that come 2x a day and an PIPE LINE INSPECTOR that comes to check up on her as well. Heidy verbalized understanding and denied having any further questions or concerns at this time. * Telephone Encounter - Brandee Christie - 09/14/2022 10:32 AM EDT Tc from [facility] Nurse with [facility] requesting a status on other two referral for Pulmonary and GI. Please contact Heidy at [phone] documented in this encounter Plan of Treatment Upcoming Encounters Date Type Department Care Team (Late st Contact Info) Description 06/20/2024 10:00 AM EST Office Visit [facility] MEDICINE [address] [place] [phone] Messi Mccollum MD [address] [place] [address] documented as of this encounter Visit Diagnoses Diagnosis Uncomplicated opioid dependence (CMS/HCC) documented in this encounter Care Teams Sales Training Representative Relationship Specialty Start Date End Date Sammy Reilly MD [address] [place] [phone] PCP - General Internal Medicine 12/23/13 [employer] 04/08/22 Tj Larose MD District Manager Nephrology 04/10/24 documented as of this encounter
--- OUTSIDE RECORDS SUMMARY | 2024-06-16 17:42 | XMS_ITS | Encounter Summary ---
Author Organization [employer] Address [address] [facility] 7t [place] [address] Care Team Providers Care Range Master Name Role Phone Sammy Reilly MD Primary Care Provide r Reason for Visit * Reason Comments Med Refill Encounter Details Date Type Department Care Team ([facility] st Contact Info) Description 05/09/2023 Refill [facility] MEDICINE [address] [place], [place] [phone] Sammy Reilly MD [address] [place], [place] [phone] Social History Tobacco Use Types Packs/Day Years [...] Description 06/20/2024 10:00 AM EST Office Visit [facility] [address] [place], [place] [phone] Messi Mccollum MD [address] [place], [place] [phone] documented as of this encounter Goals Goal [...] documented as of this encounter Care Teams Range Master Relationship Specialty Start Date End Date Sammy Reilly MD [address] [place] [id number] PCP - General Internal Medicine 12/23/13 [employer] 04/08/22 Tj Larose MD Sand Filler Nephrology 04/10/24 documented as of this encounter
--- OUTSIDE RECORDS SUMMARY | 2024-06-16 17:42 | XMS_ITS | Encounter Summary ---
Author Organization [employer] Address [address] [facility] 7t [place] [address] Care Team Providers Care Salon Stylist Name Role Phone Sammy Reilly MD Primary Care Provide r Reason for Visit * Reason Comments Med Refill Encounter Details Date Type Department Care Team ([facility] Contact Info) Description 02/12/2023 Refill [facility] MEDICINE [address] [place], [place] [phone] Lois Garrett MD [address] [place], [place] [phone] Hypertension secondary to other renal disorders Social History Tobacco Use Types Packs/Day Years [...] Upcoming Encounters Date Type Department Care Team ([facility] Contact Info) Description 06/20/2024 10:00 AM EST Office Visit [facility] MEDICINE [address] [place], [place] [phone] Messi Mccollum MD [address] [place], [place] [phone] documented as of this encounter Goals Goal Patient Goal Type Associated Problems Recent Progress Patient-Stated? Author Check and record your blood sugars as directed Blood Pressure No Jimbo Burris PharmD Short-term: Promote adherence to treatment regimen General Jimbo Barlow PharmD Take your medication every day Lifestyle No Jimbo Burris PharmD documented as of this encounter Visit Diagnoses Diagnosis Hypertension secondary to other renal disorders documented in this encounter Additional Health Concerns Assessment Noted Time PHQ-9 Depression Total Score: 11 023 9:59 AM EDT documented as of this encounter Care Teams Salon Stylist Relationship Specialty Start Date End Date Sammy Reilly MD [address] [place] [address] PCP - General Internal Medicine 12/23/13 [employer] 04/08/22 Tj Larose MD Livestock Speculator Nephrology 04/10/24 documented as of this encounter
--- OUTSIDE RECORDS SUMMARY | 2024-06-16 17:42 | XMS_ITS | Encounter Summary ---
Author Organization [employer] Address [address] [place] [address] Care Team Providers Care Fruit Harvester Name Role Phone Sammy Reilly MD Primary Care Provide r Encounter Details Date Type Department Care Team ([facility] Contact Info) Description 05/21/2024 Orders Only GENERIC EXTERNAL DATA DEPARTMENT [...] 06/20/2024 10:00 AM EST Office Visit [facility] [address] [place], [place] [phone] Messi Mccollum MD [address] [place], [place] [phone] documented as of this encounter Goals Goal [...] Procedure Name Priority Date/Time Associated Diagnosis Comments XR CHEST 1 VIEW Routine 05/22/2024 9:35 AM EST XR CHEST 1 VIEW Routine 05/21/2024 4:33 PM EST VENOUS BLOOD GAS Routine 05/21/2024 3:52 PM EST LACTIC ACID Routine 05/21/2024 3:45 PM EST HIGH SENSITIVITY TROPONIN I Routine 05/21/2024 3:33 PM EST CBC WITH AUTO DIFFERENTIAL Routine 05/21/2024 3:33 PM EST PROTHROMBIN TIME-INR Routine 05/21/2024 3:33 PM EST B TYPE NATRIURETIC PEPTIDE (BNP) Routine 05/21/2024 3:33 PM EST MAGNESIUM Routine 05/21/2024 3:33 PM EST HEPATIC FUNCTION PANEL Routine 05/21/2024 3:33 PM EST BASIC METABOLIC PANEL Routine 05/21/2024 3:33 PM EST SARS COV2/INFLUENZA A/B AND RSV RNA QL NAAT Routine 05/21/2024 3:10 PM EST documented in this encounter Results * XR Chest 1 View (05/22/2024 9:35 AM EST) Anatomical Region Laterality Modality Chest Radiographic Bety ging 05/22/2024 9:35 AM EST Narrative 05/22/2024 11:01 AM EST ? [facility] ?[address] ?[place] [address] ?XRay Report ? Signed ? Patient: Cruz Muller ?MR#: [id number] ?? 460 ? : 1955 ?Acct:[id number] ? Age/Sex: 69 / F ?ADM Date: 05/21/24 ? Loc: HO.ICU ?254-1 ? Attending Dr: Gonzalo Will MD ? Ordering Physician: Gonzalo Will MD ?? Date of Service: 05/22/24 ?? Procedure(s): XR chest 1V ?? Accession Number(s): [id number] ? cc: Gonzalo Will MD; Sammy Vicente MD ? EXAMINATION: ?? XR CHEST ? CLINICAL INFORMATION: ?? pulmonary edema ? COMPARISON: ?? Chest 05/21/2024 ? TECHNIQUE: ?? Frontal view of the chest was obtained. ? FINDINGS: ?? There is a right dialysis catheter tip in distal SVC. Heart size is ?? borderline enlarged. There are bilateral patchy opacities throughout ?? both lungs most prominent right lung which have slightly improved since ?? 05/21/2024. There is suspicion for right pleural effusion with blunting ?? of right CP angle. Mild spondylosis dorsal spine seen. ? XR/XR chest 1V ?? IMPRESSION: ?? Mild improvement in diffuse right-sided pulmonary opacities from ?? earlier exam. No change in the right dialysis catheter tip. ? Suspect small right pleural effusion, new since the last exam. ? Electronically signed by: ??Orlando Dozier MD ??05/22/2024 10:59 AM EST RP ? Dictated By: ?Orlando Dozier MD ? Signed By: ?<Electronically signed by Orlando Dozier MD in OV> ?05/22/241058 ? DD/ 0935 ? TD/TT: 05/22/24 0942 ? Cello Teacher: MSM ? Procedure Note Shirley, Image - 05/22/[address] [address] XRay Report Signed Patient: Cruz MullerMR#: [id number] 460 : 6Acct:[id number] Age/Sex: 69 / FADM Date: 05/21/24 Loc: .ICU 254-[address]: Gonzalo Will MD Ordering Physician: Gonzalo Will MD Date of Service: 05/22/24 Procedure(s): XR chest 1V Accession Number(s): [id number] cc: Gonzalo Will MD; Sammy Vicente MD EXAMINATION: XR CHEST CLINICAL INFORMATION: pulmonary edema COMPARISON: Chest 05/21/2024 TECHNIQUE: Frontal view of the chest was obtained. FINDINGS: There is a right dialysis catheter tip in distal SVC. Heart size is borderline enlarged. There are bilateral patchy opacities throughout both lungs most prominent right lung which have slightly improved since 05/21/2024. There is suspicion for right pleural effusion with blunting of right CP angle. Mild spondylosis dorsal spine seen. XR/XR chest 1V IMPRESSION: Mild improvement in diffuse right-sided pulmonary opacities from earlier exam. No change in the right dialysis catheter tip. Suspect small right pleural effusion, new since the last exam. Electronically signed by: Orlando Dozier MD 05/22/2024 10:59 AM EST RP Dictated By: Orlando Dozier MD Signed By: <Electronically signed by Orlando Dozier MD in OV> 05/22/24 1059 DD/ 0935 TD/TT: 05/22/24 0942 Cello Teacher: MAUREEN [facility] External Provider IMG XR PROCEDURES Edited Result - Final * XR Chest 1 View (05/21/2024 4:33 PM EST) Anatomical Region Laterality Modality Chest Radiographic Bety ging 05/21/2024 4:33 PM EST Narrative 05/21/2024 4:34 PM EST ? [facility] ?[address] ?[place] [address] ?XRay Report ? Signed ? Patient: MullerCruz ?MR#: [id number] ?? 460 ? : 1955 ?Acct:[id number] ? Age/Sex: 69 / F ?ADM Date: 05/21/24 ? Loc: HO.ED ? Attending Dr: ? Ordering Physician: Bushra Vallejo DO ?? Date of Service: 05/21/24 ?? Procedure(s): XR chest 1V ?? Accession Number(s): [id number] ? cc: Bushra Vallejo DO; Sammy Vicente MD ? CLINICAL HISTORY: dyspnea ? 1 view chest x-ray ? Comparison: CR/SR - XR CHEST 1V - 04/19/24 07:24 EST ? Findings: ?? Diffuse right-sided pulmonary opacities are increased. ?? Bilateral interstitial opacities appear unchanged. ?? No pneumothorax or large pleural effusion. ?? Stable cardiomediastinal silhouette. ?? Several old left rib fractures. ?? Right hemodialysis catheter tips are near the atriocaval junction and in ?? the right atrium. ? IMPRESSION: ?? 1. Diffuse right-sided pulmonary opacities secondary to infection or ?? atypical edema. ?? 2. Bilateral interstitial opacities secondary to pneumonitis and/or edema. ? This document has been electronically signed by: Betty Cassidy, DO on ?? 05/21/2024 16:33:24 ? Dictated By: ?Betty Cassidy MD ? Signed By: ?<Electronically signed by Betty Cassidy MD in OV> ?05/21/24 1634 ? DD/ 1633 ? TD/TT: 05/21/24 1633 ? Cello Teacher: ? Procedure Note Donotuseinterpreter, Image - 05/21/[address] [address] XRay Report Signed Patient: Cruz MullerMR#: [id number] 460 : 6Acct:[id number] Age/Sex: 69 / FADM Date: 05/21/24 Loc: HO.ED Attending Dr: Ordering Physician: Bushra Vallejo DO Date of Service: 05/21/24 Procedure(s): XR chest 1V Accession Number(s): [id number] cc: Bushra Vallejo DO; Sammy Vicente MD CLINICAL HISTORY: dyspnea 1 view chest x-ray Comparison: CR/SR - XR CHEST 1V - 04/19/24 07:24 EST Findings: Diffuse right-sided pulmonary opacities are increased. Bilateral interstitial opacities appear unchanged. No pneumothorax or large pleural effusion. Stable cardiomediastinal silhouette. Several old left rib fractures. Right hemodialysis catheter tips are near the atriocaval junction and in the right atrium. IMPRESSION: 1. Diffuse right-sided pulmonary opacities secondary to infection or atypical edema. 2. Bilateral interstitial opacities secondary to pneumonitis and/or edema. This document has been electronically signed by: Betty Cassidy DO on 05/21/2024 16:33:24 Dictated By: Betty Cassidy MD Signed By: <Electronically signed by Betty Cassidy MD in OV> 05/21/24 1634 DD/ 1633 TD/TT: 05/21/24 1633 Cello Teacher: [facility] External Provider IMG XR PROCEDURES Edited Result - Final * (ABNORMAL) VENOUS BLOOD GAS (05/21/2024 3:52 PM EST) VBG pH 7.48(H) 7.32 - 7.43 [facility] Comment:METER #: [id number] additional_comment: Cb paradim VBG PCO2 39 mmHg [facility] Comment:METER #: [id number] additional_comment: Cb paradim VBG PO2 111 mmHg [facility] Comment:METER #: [id number] additional_comment: Cb paradim VBG Base Excess 5.8 mmol/L [facility] Comment:METER #: [id number] additional_comment: Cb paradim VBG HCO3 29(H) 22 - 26 mmol/L [facility] Comment:METER #: [id number] additional_comment: Cb paradim O2 Sat, Juan Jose 99.0 % [facility] Comment:METER #: [id number] additional_comment: Cb paradim 05/21/2024 3:52 PM EST 05/21/2024 3:57 PM EST us Generic External Data Provider LAB BLOOD ORDERAB LES Final Result Performing Organization Address [facility]/ZIP Co de Phone Number [facility] [address] [place] [phone] * Lactic Acid (05/21/2024 3:45 PM EST) Lactic Acid 1.2 0.5 - 2.0 mmol/L [facility] 05/21/2024 3:45 PM EST 05/21/2024 3:55 PM EST us Generic External Data Provider LAB BLOOD ORDERAB LES Final Result Performing Organization Address [facility] Co de Phone Number [facility] [address] [place] [phone] * (ABNORMAL) Magnesium (05/21/2024 3:33 PM EST) Magnesium 2.9(H) 1.6 - 2.6 mg/dL [facility] 05/21/2024 3:33 PM EST 05/21/2024 3:36 PM EST us Generic External Data Provider LAB BLOOD ORDERAB LES Final Result Performing Organization Address City/[facility]/ZIP Co de Phone Number [facility] [address] [place] [phone] [phone] * (ABNORMAL) Basic Metabolic Panel (05/21/2024 3:33 PM EST) Sodium 131(L) 135 - 145 mmol/L [facility] Potassium 6.5(HH) 3.3 - 5.1 mmol/L [facility] Comment:Critical value for t est(s):POTS Results called to and readback by: ARNULFO Person calling: SALIERD Date:05/21/23 Time:1616 Chloride 89(L) 96 - 108 mmol/L [facility] Carbon Dioxide 27 22 - 29 mmol/L [facility] Anion Gap 22(H) 12 - 20 [facility] Urea Nitrogen (BUN) 40(H) 9 - 16 mg/dL [facility] Creatinine, Serum 7.90(HH) 0.5 - 1.4 mg/dL [facility] Comment:Critical value for t est(s): RALPH Results called to and readback by:ARNULFO Person calling: SALIERD Date:05/21/23 Time:1616 Creatinine Clr Calc Pharmacy TNP [facility] Comment:Unable to calculate eCrCL; all parameters not provided. Estimated Glomerular Filt Rate 5 [facility] Comment:Chronic Kidney Disea se: Estimated GFR < 60 mL/min/1.40o1Gvofsa Kidney Disease: Estimated GFR < 15 mL/min/1.73m2 Glucose 203(H) 60 - 115 mg/dL [facility] Calcium 11.6(H) 8.4 - 10.2 mg/dL [facility] 05/21/2024 3:33 PM EST 05/21/2024 3:36 PM EST us Generic External Data Provider LAB BLOOD ORDERAB LES Final Result [facility] [address] [place] [phone] * (ABNORMAL) Hepatic Function Panel (05/21/2024 3:33 PM EST) Bilirubin, Total 0.4 0.0 - 1.0 mg/dL [facility] Bilirubin, Direct 0.1 0.0 - 0.5 mg/dL [facility] Aspartate Amino Transferase 31 5 - 31 U/L [facility] Alanine Aminotransferase 15 0 - 31 U/L [facility] Total Protein 8.3(H) 6.5 - 8.0 g/dL [facility] Albumin Level 4.3 3.5 - 5.0 g/dL [facility] Alkaline Phosphatase 151(H) 39 - 117 U/L [facility] 05/21/2024 3:33 PM EST 05/21/2024 3:36 PM EST us Generic External Data Provider LAB BLOOD ORDERAB LES Final Result Performing Organization Address [facility] Co de Phone Number [facility] [address] [place] [address] [phone] * (ABNORMAL) High Sensitivity Troponin I (05/21/2024 3:33 PM EST) [facility] TROPONIN I HIGH SENSITIVITY 25.9(H) <3.5 - 17.0 ng/L [facility] Comment:The Rivera high sens itivity Troponin-I results should beused in conjunction with other diagnostic information suchas ECG, clinical observations and information, and patientsymptoms to aid in the diagnosis of [place]. 05/21/2024 3:33 PM EST 05/21/2024 3:36 PM EST us Generic External Data Provider LAB BLOOD ORDERAB LES Final Result Performing Organization Address [facility] Co de Phone Number [facility] [address] [place] [address] [phone] * (ABNORMAL) B Type Natriuretic Peptide (BNP) (05/21/2024 3:33 PM EST) [facility] B Type Natriuretic Peptide 3,639(H) <100 pg/mL [facility] Comment:For those patients w ho are being treated with Natrecor(nesiritide, recombinant BNP), BNP testing should beperformed at least two hours post treatment in order toensure that only endogenous levels of BNP are detected. 05/21/2024 3:33 PM EST 05/21/2024 3:36 PM EST Generic External Data Provider LAB BLOOD ORDERAB LES Final Result Performing Organization Address [facility] de Phone Number [facility] [address] [place] [phone] * (ABNORMAL) Prothrombin Time-INR (05/21/2024 3:33 PM EST) [facility] Prothrombin Time 10.1(L) 10.9 - 12.4 SEC [facility] INTERNATIONAL NORM RATIO 0.9 0.9 - 1.1 [facility] Comment:INTERNATIONAL NORMAL IZED RATIO (INR) REFERENCE [...] 3:33 PM EST 05/21/2024 3:36 PM EST [employer] External Data Provider LAB BLOOD ORDERAB LES Final Result Performing Organization Address [facility] Phone Number [facility] [address] [place] [phone] * (ABNORMAL) CBC auto differential (05/21/2024 3:33 PM EST) White Blood Count 9.3 4.8 - 10.8 X10*3/uL [facility] Red Blood Count 3.93(L) 4.20 - 5.50 X10*6/uL [facility] Hemoglobin 13.1 12.0 - 16.0 g/dl [facility] Hematocrit 40.2 37.0 - 47.0 % [facility] Mean Corpuscular Volume 102.3(H) 80.0 - 98.0 fL [facility] Mean Corpuscular Hemoglobin 33.3(H) 27.0 - 33.0 pg [facility] Mean Corpuscular HGB Conc 32.6 31.0 - 35.0 g/dl [facility] Red Cell Distribution Width 15.5 11.0 - 16.0 % [facility] Platelet Count 267 160 - 400 X10*3/uL [facility] Mean Platelet Volume 10.3 9.4 - 12.3 fL [facility] Neutrophils Percent Auto 74.5(H) 45 - 73 % [facility] Imm Gran Pct Auto 0.5(H) 0.0 - 0.4 % [facility] Lymphocytes Percent Auto 16.5(L) 20 - 40 % [facility] Monocytes Percent Auto 5.3 2 - 11 % [facility] Eosinophils Percent Auto 2.9 0 - 4 % [facility] Basophils Percent Auto 0.3 0 - 2 % [facility] NRBC Pct Auto 0.0 0.0 - 0.2 /100WBC [facility] Neutrophils Absolute Auto 6.9 2.0 - 8.3 x10*3/uL [facility] Imm Gran Abs Auto 0.05(H) 0.00 - 0.03 X10*3/uL [facility] Lymphocytes Absolute Auto 1.5 1.2 - 4.9 X10*3/uL [facility] Monocytes Absolute Auto 0.5 0.1 - 1.2 X10*3/uL [facility] Eosinophils Absolute Auto 0.3 0.0 - 0.4 X10*3/uL [facility] Basophils Absolute Auto 0.0 0.0 - 0.2 X10*3/uL [facility] NRBC Abs Auto 0.000 0.0 - 0.012 X10*3/uL [facility] 05/21/2024 3:33 PM EST 05/21/2024 3:36 PM EST us Generic External Data Provider LAB BLOOD ORDERAB LES Final Result Performing Organization Address [facility] Co de Phone Number [facility] [address] [place] [phone] * SARS-CoV-2 RNA, Influenza A/B, and RSV RNA, Ql NAAT (05/21/2024 3:10 PM EST) Influenza A PCR NEGATIVE Negative [facility] Influenza B PCR NEGATIVE Negative [facility] Resp Syncy Virus RNA Qual PCR NEGATIVE Negative [facility] SARS COV2 PCR NEGATIVE Negative [facility] Comment:All test results mus t be [...] use by authorized laboratories.Testing performed on the [employer] GeneXpert utilizingreal-time RT-PCR.All SARS CoV2 and positive influenza A/B results arereported to [facility]. 05/21/2024 3:10 PM EST 05/21/2024 3:15 PM EST us Generic External Data Provider LAB MICROBIOLOGY - GENERAL ORDERABLES Final Result Performing Organization Address [facility]/ZIP Co de Phone Number [facility] [address] [place] [phone] documented in this encounter Visit Diagnoses Not on filedocumented in this encounter Additional Health Concerns Assessment Noted Time PHQ-9 Depression Total Score: 11 024 9:25 AM EDT documented as of this encounter Care Teams Fruit Harvester Relationship Specialty Start Date End Date Sammy Reilly MD [address] [place] [address] PCP - General Internal Medicine 12/23/13 Take the Interview 04/08/22 Tj Larose MD Project Construction Manager Nephrology 04/10/24 documented as of this encounter
--- OUTSIDE RECORDS SUMMARY | 2024-06-16 17:42 | XMS_ITS | Data Portability ---
Author Organization [facility] [place] [facility] - [employer] Address [address] [place] [id number] Care Team Providers Care Phone Specialist Name Role Phone [facility] Referring Provider HIM [facility] OTHER Assessment Encounter Date Assessment Date Assessment LastModified by Organization Details LastModified Time 12/12/2021 12/12/2021 service called f or cough found 66 donna with 2-3d non-productive cough, no fevers, chills, SOB no chest pain, no change in appetitie/energy of note, pt due for HD tomorrow and typically BP elevated prior HD otherwise no new complaints COVID neg likely viral bronchitis short trial cough syrup pt to notify service if worsening, new fever/chills [email or web address] Not available 12/12/2021 19:23:29 08/21/2022 08/21/2022 As noted, we jessica jade called to see this patient regarding concerns of nausea. Evaluation in the field was performed by my die cutter apprentice colleague, as noted above, I provided real-time direction and supervision for this visit. The evaluation revealed that the patient had missed HD today due to transportation issues. SHe normally goes to HD 4x/week M/T/R/Sat. She had typical symptoms from missing HD. She also had low back pain which was new over the past few days but upon further history recurrence of historical LBP. We discussed concern for infection (specifically, she had a recent hospitalization and completed a course of abx for MSSA bacteremia on 08/18; major concern would be for seeding from persistent/recurre nt bacteremia). However, given she was afebrile, back pain c/w chronic LBP, and other symptoms typical for missed HD and that she would be seen for HD tomorrow, we advised remaining in the community and follow up with HD. Alerted that danger signs would include fever, worsening back pain or if she does not make it to HD tomorrow & improve with HD. Impression: missed HD. Plan: seek care if symptoms do not improve with HD or otherwise worsen. Disposition: remain in community We discussed the diagnostic uncertainty of home visits and the risk associated with this. In this case, the patient and I felt this to be an acceptable and reasonable amount of risk given the benefit of avoiding an ED visit. We discussed the need to seek care urgently/emergentl y in the setting of any new or worsening serious symptoms, particularly recurrence of bacteremia & spread to spine. [email or web address] Not available 08/21/2022 19:00:23 09/10/2023 09/10/2023 I provided real -time medical direction via phone for this encounter and was available for additional phone-based assistance as needed. I have reviewed and agree with the Assessment and Plan as documented by the Marriage Therapist. Patient given the opportunity to ask questions. Our service contacted for an assessment of: HTN As per above, patient with known HTN (poorly controlled) and ESRD on HD T, TH, Sat. Took her BPs meds and then took her meds. Noted to be high and RN called for a recheck. Per die cutter apprentice on the scene, patient took meds within 2 hours. Going for HD tomorrow. asymptomatic and denies CP, SOB, SEAMAN, HANCOCK, change in vision. Feels the same as usual. Impression: HTN and ESRD Plan: Continue to take scheduled meds. Attend HD in AM. Follow up with your Embossograph Operator in AM for medications adjustments. Discussed red flags as to when seek a higher level of care. We discussed the diagnostic uncertainty of home visits and the risk associated with this. In this case, the patient and I felt this to be an acceptable and reasonable amount of risk given the benefit of avoiding an ED visit. We discussed the need to seek care urgently/emergentl y in the setting of any new or worsening serious symptoms [email or web address] Not available 09/10/2023 18:20:51 Plan of Treatment Reminders Order Date Submit Date Provider Last Modified By Organization Details Last Modified Time Details Appointments None recorded. Lab None recorded. Referral None recorded. Procedures None recorded. Surgeries None recorded. Imaging None recorded. Medication Orders Diabetic Tussin DM 10 mg-100 mg/5 mL oral liquid 2021 022 [facility], [address] [place] [address], [id number], 19:20:47 diphenhydra mine 25 mg tablet 2021 [facility], [address] [place] [address], [id number], 17:13:24 ondansetron 4 mg disintegrat ing tablet 2021 [facility], [address] [place] [address], [id number], 17:13:24 Patient TargetsNo targets recorded. Patient InstructionsNo instructions recorded. Reason for Referral None Reported. Medical Equipment None Reported. Medications Name Sig Start Date Stop Date Status Note LastModified by Organization Details LastModified Time losartan 50 mg tablet TAKE 1 TABLET BY MOUTH DAILY EVERY MORNING active Not Available Not Available No t Available clonidine HCl 0.1 mg tablet TAKE 1 TABLET BY MOUTH TWICE DAILY active Not Available Not Available No t Available carvedilol 6.25 mg tablet TAKE 1 TABLET BY MOUTH TWICE DAILY WITH FOOD active Not Available Not Available No t Available prednisone 10 mg tablet TAKE 1 TABLET BY MOUTH EVERY DAY active Not Available Not Available No t Available nicotine 14 mg/24 hr daily transdermal patch APPLY 1 PATCH TOPICALLY TO THE SKIN IN THE MORNING DO NOT SMOKE WHILE USING PATCH active Not Available Not Available No t Available bumetanide 2 mg tablet TAKE 1 TABLET BY MOUTH EVERY DAY active Not Available Not Available No t Available albuterol sulfate 2.5 mg/3 mL (0.083 %) solution for nebulization INHALE 1 AMPULE USING A NEBULIZER THREE TIMES DAILY NEEDED active Not Available Not Available No t Available polyethylene glycol 3350 17 gram oral powder packet MIX 1 PACKET IN WATER TWICE DAILY WITH MEALS FOR CONSTIPATIO N active Not Available Not Available No t Available diltiazem CD 180 mg capsule,exte nded release 24 hr TAKE 2 CAPSULES BY MOUTH EVERY DAY active Not Available Not Available No t Available senna 8.6 mg tablet TAKE 1 TABLET BY MOUTH EVERY DAY NEEDED active Not Available Not Available No t Available ondansetron HCl 4 mg tablet TAKE 1 TABLET BY MOUTH TWICE DAILY NEEDED FOR NAUSEA AND VOMITING active Not Available Not Available No t Available isosorbide mononitrate ER 30 mg tablet,exten ded release 24 hr TAKE 1 TABLET BY MOUTH EVERY DAY active Not Available Not Available No t Available olanzapine 5 mg tablet TAKE 1 TABLET BY MOUTH AT BEDTIME active Not Available Not Available No t Available Elle-Sharifa Rx 1 mg-60 mg-300 mcg tablet TAKE 1 TABLET BY MOUTH EVERY DAY active Not Available Not Available No t Available Lantus U-100 Insulin 100 unit/mL subcutaneous solution INJECT 2 UNITS SUBCUTANEOU SLY EVERY EVENING active Not Available Not Available No t Available aspirin 81 mg tablet,delay ed release TAKE 1 TABLET BY MOUTH EVERY DAY active Not Available Not Available No t Available acetaminophe n 500 mg tablet TAKE 1 TABLET BY MOUTH EVERY 6 HOURS NEEDED FOR PAIN OR FEVER active Not Available Not Available No t Available isosorbide dinitrate 30 mg tablet TAKE 1 TABLET BY MOUTH THREE TIMES DAILY active Not Available Not Available Not Available hydrocortiso ne 2.5 % topical cream with perineal applicator APPLY RECTALLY TWICE DAILY FOR 7 DAYS active Not Available Not Available N ot Available clonidine HCl 0.2 mg tablet TAKE 1 TABLET BY MOUTH TWICE DAILY active Not Available Not Available No t Available amlodipine 10 mg tablet TAKE 1 TABLET BY MOUTH EVERY DAY active Not Available Not Available No t Available hydralazine 100 mg tablet TAKE 1 TABLET BY MOUTH THREE TIMES DAILY WITH FOOD active Not Available Not Available No t Available pantoprazole 40 mg tablet,delay ed release TAKE 1 TABLET BY MOUTH EVERY MORNING. DO NOT BREAK, CRUSH, DISSOLVE OR CHEW active Not Available Not Available No t Available diphenhydram ine 25 mg tablet Take 1 tablet by oral route. 2021 active Not Available Not Available Not Avai lable nicotine 21 mg/24 hr daily transdermal patch APPLY 1 PATCH TOPICALLY TO THE SKIN DAILY IN THE MORNING DO NOT SMOKE WHILE USING PATCH active Not Available Not Available Not Available docusate sodium 100 mg capsule TAKE 2 CAPSULES BY MOUTH DAILY active Not Available Not Available Not Available gabapentin 300 mg capsule TAKE 1 CAPSULE BY MOUTH EVERY DAY active Not Available Not Available No t Available Banophen 25 mg capsule TAKE 1 CAPSULE BY MOUTH EVERY DAY NEEDED active Not Available Not Available No t Available magnesium citrate oral solution DRINK FULL BOTTLE ONCE active Not Available Not Available Not Available insulin syringe U-100 with needle 0.3 mL 31 gauge x 5/16 active Not Available Not Available Not Available hydralazine 50 mg tablet TAKE 1 TABLET BY MOUTH THREE TIMES DAILY active Not Available Not Available Not Available Diabetic Tussin DM 10 mg-100 mg/5 mL oral liquid Take 10 mL every 4 hours by oral route as needed for 5 days. 2021 active Not Available Not Available Not Avai lable mirtazapine 15 mg tablet TAKE 1 TABLET BY MOUTH DAILY AT BEDTIME active Not Available Not Available N ot Available ondansetron 4 mg disintegrati ng tablet Place 1 tablet by translingua l route. 2021 active Not Available Not Available Not Avai lable Ventolin HFA 90 mcg/actuatio n aerosol inhaler INHALE 2 PUFFS BY MOUTH EVERY 4 TO 6 HOURS NEEDED FOR WHEEZING OR SHORTNESS OF BREATH active Not Available Not Available No t Available Novolog FlexPen U-100 Insulin aspart 100 unit/mL (3 mL) subcutaneous INJECT 4-12 UNITS SUBCUTANEOU SLY BEFORE MEALS DIRECTED PER SLIDING SCALE BLOOD SUGAR 150-200 = 4 UNITS, 201-250 = 6U, 251-300 = 8U, 301-350 = 10U, > 351 = 12U active Not Available Not Available No t Available Alcohol Prep Pads USE DIRECTED active Not Available Not Available No t Available Spiriva with HandiHaler 18 mcg and inhalation capsules USE 1 CAPSULE FOR INHALATION ONCE A DAY DO NOT SWALLOW CAPSULE active Not Available Not Available No t Available mirtazapine 7.5 mg tablet TAKE 1 TABLET BY MOUTH AT BEDTIME active Not Available Not Available No t Available calcium acetate(phos phate binders) 667 mg capsule TAKE 1 CAPSULE BY MOUTH WITH MEALS AND SNACKS. NO MORE THAN 5 CAPSULES DAILY. active Not Available Not Available No t Available lactulose 10 gram/15 mL oral solution GIVE 15 ML BY MOUTH ONCE DAILY DAY 1 THEN INCREASE TO 15 TO 30 ML BY MOUTH ONCE DAILY NEEDED FOR CONSTIPATIO N active Not Available Not Available No t Available Flovent HFA 110 mcg/actuatio n aerosol inhaler INHALE 1 PUFF BY MOUTH TWICE DAILY active Not Available Not Available No t Available UltiCare Pen Needle 31 gauge x 1/4 USE FOUR TIMES DAILY DIRECTED active Not Available Not Available Not Available FreeStyle Lite Strips USE TO CHECK BLOOD SUGAR 5 TIMES DAILY active Not Available Not Available Not Available Lantus Solostar U-100 Insulin 100 unit/mL (3 mL) subcutaneous pen INJECT 7 UNITS SUBCUTANEOU SLY ONCE DAILY active Not Available Not Available No t Available sevelamer carbonate 800 mg tablet TAKE 1 TABLET BY MOUTH TWICE DAILY WITH ONLY 2 MEALS active Not Available Not Available No t Available diclofenac 1 % topical gel APPLY 2 GRAMS TO AFFECTED AREA(S) TWICE DAILY active Not Available Not Available Not Available melatonin 5 mg tablet TAKE 1 TABLET BY MOUTH AT BEDTIME NEEDED FOR SLEEP active Not Available Not Available No t Available ClearLax 17 gram/dose oral powder TAKE 17 GM MIXED IN 8 OUNCES OF WATER ONCE DAILY active Not Available Not Available No t Available buprenorphin e 8 mg-naloxone 2 mg sublingual film DISSOLVE 2 FILMS UNDER THE TONGUE EVERY DAY active Not Available Not Available No t Available TRUEplus Lancets 33 gauge TEST BLOOD SUGAR FIVE TIMES DAILY active Not Available Not Available Not Available Vitals Date Recorded Body weight Respiratory rate Body temperature Heart rate Oxygen saturation Oxygen saturation in Arterial blood by Pulse oximetry Body height Systolic blood pressure Diastolic blood pressure Provider Name and Address Organization Details Last Updated DateTime 4 57714.8 g 18 /min 98.2 [degF] 82 /min 98 % 98 % 154.94 cm 194 mm[Hg] 100 mm[Hg] Not Available [employer] 4 18:13:07 Date Recorded Body temperature Oxygen saturation Oxygen saturation in Arterial blood by Pulse oximetry Respiratory rate Heart rate Systolic blood pressure Diastolic blood pressure Provider Name and Address Organization Details Last Updated DateTime 2 98.4 [degF] 98 % 98 % 18 /min 90 /min 208 mm[Hg] 78 mm[Hg] Not Available [employer] 2 18:56:10 Date Recorded Respiratory rate Body temperature Oxygen saturation Oxygen saturation in Arterial blood by Pulse oximetry Heart rate Respiratory rate Oxygen saturation Oxygen saturation in Arterial blood by Pulse oximetry Heart rate Body temperature Systolic blood pressure Diastolic blood pressure Systolic blood pressure Diastolic blood pressure Provider Name and Address Organization Details Last Updated DateTime 2 12 /min 98.6 [degF] 99 % 99 % 76 /min 12 /min 99 % 99 % 76 /min 98.6 [degF] 154 mm[Hg] 83 mm[Hg] 154 mm[Hg] 83 mm[Hg] Not Available [employer] 2 18:00:34 Date Recorded Body weight Heart rate Respiratory rate Oxygen saturation Oxygen saturation in Arterial blood by Pulse oximetry Body height Body temperature Body weight Heart rate Oxygen saturation Oxygen saturation in Arterial blood by Pulse oximetry Respiratory rate Body temperature Body height Systolic blood pressure Diastolic blood pressure Systolic blood pressure Diastolic blood pressure Provider Name and Address Organization Details Last Updated DateTime 3 23948.2 24 g 48 /min 18 /min 96 % 96 % 154.94 cm 97.9 [degF] 34562.2 24 g 48 /min 96 % 96 % 18 /min 97.9 [degF] 154.94 cm 113 mm[Hg] 69 mm[Hg] 113 mm[Hg] 69 mm[Hg] Not Available [employer] 3 17:35:34 Social History None recorded. Functional Status None recorded. Mental Status None recorded. Family History Nothing Reported. Medical History No medical history recorded. Gynecological HistoryNo gynecological history recorded. Obstetrics History GPAL:G 0 P 0 0 0 0 Past Encounters Encounter ID Performer Location Encounter Start Date Encounter Closed Date Diagnosis/Indication Diagnosis SNOMED-CT Code Diagnosis ICD10 Code Diagnosis Note [id number] Lázaro Tobar MD [facility] - [address] [address] 12/12/2021 18:56:07 02/09/2022 18:42:13 Cough 28671173 R05.1 Acute sherie l bronchitis 572410772 J20.[id number] [facility] - [address] [address] 03/15/2022 17:06:51 03/21/2022 15:11:00 Nausea 620850877 R11.0 Reports nausea after hemodialys is and some itching. No other signs or symptoms. Patient reports just getting off the phone with the triage nurse from her PCP's office who will call in Rx. Will treat symptomati ling for now. Also reports that she has received an eviction notice despite paying her rent, would benefit from referral to social work by care team. [id number] [facility] - [address] [address] 08/21/2022 16:56:47 08/22/2022 22:48:09 Chronic low back pain 711048115 M54.50 back pain has been present for several days but similar to prior episodes according to pt. Nausea 516210105 R11.0 constellat [place] [id number] Felisha Rothman MD Main - [address] [address] 09/10/2023 18:13:05 09/10/2023 21:09:31 Hypertensive disorder 82066861 I10 Health Concerns Section Related Observation LastModified by Organization Detai ls LastModified Time None Recorded Concern Status LastModified by Organization Details LastModified Time None Recorded Advance Directives Directive None Recorded Payers Encounter Date Sequence Insurance Name Policy Number Policy Finley Covered Member ID Finley Member ID Guarantor Name 12/12/2021 1 [employer] - DOS PRIOR TO 2022 - DUAL ELIGIBLE (MEDICARE REPLACEMENT/ADV ANTAGE - HMO) Muller [id number] Cruz Sol Muller 03/15/2022 1 [employer] - DOS PRIOR TO 2022 - DUAL ELIGIBLE (MEDICARE REPLACEMENT/ADV ANTAGE - HMO) Cruz Muller [id number] Cruz Sol Muller 08/21/2022 1 [employer] - DOS PRIOR TO 2022 - DUAL ELIGIBLE (MEDICARE REPLACEMENT/ADV ANTAGE - HMO) Muller [id number] Cruz Sol Muller 09/10/2023 1 [employer] - DOS ON OR AFTER 2022 - DUAL ELIGIBLE - SENIOR LIVING OPTIONS AND ONE CARE (MEDICARE REPLACEMENT/ADV ANTAGE - HMO) Muller [id number] Cruz Muller Notes Date Note Type Note Provider Name and Address Organization Details Recorded Time 12/12/2021 text/html HPI: Stage 5 kidney dialysis opioid dependence .................... .................... .................... .................... .................... .................... .................... . [facility] Nursing Assessment: Comments: Determine if cough is Covid related or COPD/CHF. Treatment if needed. Pt is requesting cough syrup. .................... .................... .................... .................... .................... .................... .................... . Marriage Therapist Note: Pt complains of dry cough x2 days. Denies fever/sob/cp/ any other ailments. Pt hypertensive during visit but has dialysis early tomorrow morning. COVID test conducted with result (-). [employer] contacted. Script for cough syrup called to pharmacy. .................... .................... .................... .................... .................... .................... .................... . Disposition: Fulfilled Lázaro Tobar MD [address] [facility],[address], [place], [phone], [facility] 12/12/2021 19:23:56 03/15/2022 text/html HPI: Pt with hx of itching x 1 month, was nauseous in AM and had 1 episode of vomiting. Unable to obtain rx for anti emetic and anti-itching medication PCP prescribed. PCP can't see pt until 04/13/2022, please check VS. Might need fluids. Member was dc home from [facility] on 03/13/22 where she was treated for CHF and Respiratory Failure on 03/10/22 , is on Dialysis 3 days a week. Pt is 66-year-old female with past medical history of CHF, ESRD on dialysis presents the [facility] with nausea vomiting as well as dyspnea found to have CHF exacerbation, treated and dc home on 03/13/22. No cardiac or respiratory distress reported by member or her worker Chelly, who is willing to assist with home visit today or tomrrow. .................... .................... .................... .................... .................... .................... .................... . [facility] Nursing Assessment: Comments: CRC RN did not require any additional information to process this visit. 03/14 5:53p- call to SAHARA Chelly to make her aware member will be seen tomorrow and that we will call with an FABI- Azeb .................... .................... .................... .................... .................... .................... .................... . Marriage Therapist Note: [facility] Farrah chacko and Janette Stern dispatched to a yellow for a 67 you c/o nausea and itchiness. Pt was recently discharged from [facility] after resp failure\CHF, and placed on dialysis. Pt also took suboxone 2X a day. She reported that she was unable to get a rx refill. soap press feeder from pt's PCP called while onscene; requested rx refills for antiemetic, itch relief, more ventolin, and a reduction in stool softener due to loose stool for 5 days. RN spoke w/ pt, scheduled a follow up appt and stated she would contact the pt's PORTRAIT PAINTER. She denied headache, dizziness, sore throat, fever, cough, CP, abd pain, urinary s/s; no redness, swelling, or hives seen or indicated. C consulted; pt given 4 mg PO ondansetron and 25 mg PO diphenhydramine. Pt eating on scene before EMS departure. Red flags discussed. Need for social staff worker conveyed to .................... .................... .................... .................... .................... .................... .................... . Disposition: Fulfilled Duke Barkley MD [address] [facility],[address], [place], [address], [facility] 03/15/2022 20:09:41 08/21/2022 text/html HPI: 67 yo. Macedonian speaking female, who speaks some Colombian, illiterate, reporting having lower back pain and nausea today, stated nausea medication helped little and that her Transportation did not show for Hemodialysis as schedule. Treated for MSSA Bacteremia at [facility] from 08/07-08/18/2022. Stated to feel unwell, ? but mostly this nausea and this lower back pain? . Member denied fever or chills, stated no coughing but wishes to have her BS, BP and lungs checked to make sure she is not getting too much fluid and to be able to wait until scheduled dialysis tomorrow. [facility] ESKD, COPD, DM, Asthma, Bipolar, HTN, CAD with NSTEMI and opioid dependent treated with Suboxone. Member has 4 days a dialysis at [facility]. Member has appt with PCP 09/12 and is scheduled for dialysis Sunday. .................... .................... .................... .................... .................... .................... .................... . [facility] Nursing Assessment: Comments: No additional information needed .................... .................... .................... .................... .................... .................... .................... . Marriage Therapist Note From Jessika Cool: Sent to a call for a pt complaining of low back pain and nausea. SC8 arrives on scene, pt is alert and oriented, airway is patent. Pt's primary language is Macedonian, bullard operator line used during assessment. Pt has chronic left kidney pain, and chronic nausea. Pt complains of constipation x 3 days, worsening kidney pain x 2 days, nausea and headache today. Pt denies dizziness, cp, sob, vomiting, diarrhea, abd pain, fever, or loc. Pt is supposed to receive dialysis Mon, , , and Sat each week. Pt had a transportation issue today, but will go to dialysis tomorrow. Pt states these symptoms usually happen when she misses dialysis. Pt has been taking miralax and zofran with little/no effect. Pt also states she has not urinated in 2 weeks. BP:113/69, P:48 reg, RR:18, SpO2:96% RA, T:97.9, B; Head: diffuse pain, Chest: dialysis cath on right chest, lung sounds: clear bilaterally; Abdomen: soft, non-tender, slightly distended (baseline per pt), (+)bowel sounds; Back: mid thoracic spine tenderness w/palpation; no CVA tenderness noted; Extremities: no edema noted; Skin: unremarkable; C consulted, [facility] Austad serves as bullard operator during consult. Pt is advised to go to dialysis tomorrow as planned. If symptoms do not improve after dialysis then pt is advised to go to ED for further evaluation/treatment . Red flags discussed. Pt has no further questions. .................... .................... .................... .................... .................... .................... .................... . Disposition: Fulfilled KHLOE BRADLEY MD [address] [facility],[address], [place], [address], [facility] 08/21/2022 19:00:33 09/10/2023 text/html HPI: collar trimmer requesting visit for member with HTN. BP today 184/97. Took BP medication 2 hours ago. Has not rechecked BP after medication. Asymptomatic. Denies CP, SOB, or Dizziness. .................... .................... .................... .................... .................... .................... .................... . Marriage Therapist Note From J Luis Gomez: [facility] visit for female patient with reported hypertension. Pt presents conscious and alert ambulating in home. Pt had nurse present with her who dispenses her meds. Pt reports she was on the phone with transition of care specialist earlier in the day and disclosed that her home blood pressure reading had been elevated at 184/97. Pt has no symptoms. Pt is on several antihypertensives, in addition to doing dialysis 3 days/week with next treatment tomorrow. V/S taken with patient still hypertensive. Pt was dispensed evening dose of BP meds by nurse while [facility] was in home. Nurse reported she would stay with patient for next hour and recheck BP after. Nurse also stated pt sometimes skips evening dose of BP pills if she feels like her blood pressure is good. [place] [facility] [place] Rothman who advised no acute treatments needed. Ensured patient had phone number to call back [facility] should she want another visit. Patient education provided. Reviewed red flags for ED. .................... .................... .................... .................... .................... .................... .................... . Disposition: Fulfilled Felisha Rothman MD [address] [facility],[address], [place], [address], [facility] - [place] 09/10/2023 18:21:03 OBGyn Episode No OBEpisode recorded.
--- OUTSIDE RECORDS SUMMARY | 2024-06-16 17:42 | XMS_ITS | Encounter Summary ---
Author Organization [employer] Address [address] [place] [address] Care Team Providers Care Shoeblack Name Role Phone Sammy Reilly MD Primary Care Provide r Reason for Visit * Reason Comments Med Refill Encounter Details Date Type Department Care Team ([facility] st Contact Info) Description 04/20/2023 Refill [facility] [address] [place], [place] [phone] Name, MD Tye [address] [place], [place] [phone] Hypertension secondary to other renal disorders Social [...] Description 06/20/2024 10:00 AM EST Office Visit [facility] [address] [place], [place] [phone] Messi Mccollum MD [address] [place], [place] [phone] documented as of this encounter Goals Goal [...] documented as of this encounter Care Teams Shoeblack Relationship Specialty Start Date End Date Sammy Reilly MD [address] [place] [phone] PCP - General Internal Medicine 12/23/13 [employer] 04/08/22 Tj Larose MD Hotel Supplies Salesperson Nephrology 04/10/24 documented as of this encounter
--- OUTSIDE RECORDS SUMMARY | 2024-06-16 17:43 | XMS_ITS | Encounter Summary ---
Author Organization [employer] Address [address] 7[address] [place] [address] Care Team Providers Care Hybrid Technologist Name Role Phone Sammy Reilly MD Primary Care Provide r Encounter Details Date Type Department Care Team ([facility] st Contact Info) Description 06/16/2024 Telephone [facility] [address] [place], [place] [phone] Demi Esquivel RN Social History Tobacco Use Types Packs/Day Years [...] encounter Miscellaneous Notes * Telephone Encounter - Demi Esquivel RN - 06/16/2024 2:43 PM EST Patient came to [facility] requesting a suboxone rx. She has not been seen since March. Attempted to schedule an appt with Dr. Mccollum or CELIO Zhong. Any appt date attempted was declined due to dialysis treatments, other appts. Informed her she would receive 3 days worth today and that ad copy writer will ask her nurse to call her to attempt to schedule. documented in this encounter Plan of Treatment Upcoming Encounters Date Type Department Care Team (Late st Contact Info) Description 06/20/2024 10:00 AM EST Office Visit [facility] [address] [place] [address] Messi Mccollum MD [address] [place] [address] documented as of this encounter Goals Goal [...] documented as of this encounter Care Teams Hybrid Technologist Relationship Specialty Start Date End Date Sammy Reilly MD [address] [place] [address] PCP - General Internal Medicine 12/23/13 [employer] 04/08/22 Tj Larose MD Radiological Metallurgist Nephrology 04/10/24 documented as of this encounter
--- OUTSIDE RECORDS SUMMARY | 2024-06-16 17:43 | XMS_ITS | Encounter Summary ---
Author Organization [employer] Address [address] [place] [address] Care Team Providers Care Geological Engineering Teacher Name Role Phone Sammy Reilly MD Primary Care Provide r Reason for Visit * Reason Comments Med Refill Encounter Details Date Type Department Care Team ([facility] st Contact Info) Description 06/08/2024 Refill [facility] [address] [place], [place] [phone] Sammy Reilly MD [address] [place], [place] [phone] Type 2 diabetes mellitus with chronic kidney disease on chronic dialysis, with long-term current use of insulin ([facility]); Chronic obstructive pulmonary disease, unspecified COPD type ([facility]) Social History Tobacco Use Types Packs/Day Years [...] Description 06/20/2024 10:00 AM EST Office Visit [facility] [address] [place] [phone] Messi Mccollum MD [address] [place] [address] documented as of this encounter Goals Goal Patient Goal Type Associated Problems Recent Progress Patient-Stated? Author Check and record your blood sugars as directed Blood Pressure No Jimbo Burris PharmD Short-term: Promote adherence to treatment regimen General No Jimbo Burris, PharmD Take your medication every day Lifestyle No Jimbo Burris PharmD documented as of this encounter Visit Diagnoses Diagnosis Type 2 diabetes mellitus with chronic kidney disease on chronic dialysis, with long-term current use of insulin (CMS/HCC) Chronic obstructive pulmonary disease, unspecified COPD type (CMS/HCC) documented in this encounter Additional Health Concerns Assessment Noted Time PHQ-9 Depression Total Score: 11 024 9:25 AM EDT documented as of this encounter Care Teams Geological Engineering Teacher Relationship Specialty Start Date End Date Sammy Reilly MD [address] [place] [address] PCP - General Internal Medicine 12/23/13 [employer] 04/08/22 Tj Larose MD Director It Nephrology 04/10/24 documented as of this encounter
--- OUTSIDE RECORDS SUMMARY | 2024-06-16 17:43 | XMS_ITS | Encounter Summary ---
Author Organization [facility] Address [address] [phone] Phone Care Team Providers Care Position Description Manager Name Role Phone Unavailable Primary Care Provider Unavailabl e Encounter Details Date Type Department Care Team (Late st Contact Info) Description 06/05/2024 Treatment [facility] [address] [phone] Tj Larose MD [address] [phone] Social History Tobacco Use Types Packs/Day Years Used Date Smoking Tobacco: Every Day Alcohol Use Standard Drinks/Week Comments No 0 (1 standard drink = 0.6 oz pur e alcohol) Comments Unknown Sex and Gender Information Value Date Recorded Sex Assigned at Not on file Legal Sex Female 5:08 PM EST Gender Identity Not on file Sexual Orientation Not on file documented as of this encounter Miscellaneous Notes * Dialysis Note - Tj Larose MD - 06/05/2024 12:00 AM EST Patient: Crzu Muller : 1955 Note Type: Dialysis Rounds-Comp Service Date: 06/05/2024 This patient was personally seen for a complete visit as part of routine monthly dialysis care for end stage renal disease. Attending Data Integrity Specialist: TJ LAROSE MD Dialysis Location: DIALYSIS Schedule: Shift: 2 OVERVIEW Patient is stable. COMMENTS: Note in dialysis human resources operations manager BP AND FLUID ASSESSMENT Acceptable blood pressure. ADEQUACY ASSESSMENT Target met. Kt/V, Natural Log 1.84 (03/27/24) UREA REDUCTION RATIO (%) 78 (03/27/24) BUN 46 (03/27/24) BUN Post Dialysis 10 (03/27/24) Creatinine 7.75 (03/27/24) Bicarbonate (CO2) 24 (04/03/24) 25 (03/27/24) Sodium 132 (04/03/24) 130 (03/27/24) ACCESS ASSESSMENT Vascular access examined. ANEMIA ASSESSMENT Anemia targets not met. Hemoglobin not at target. Hgb 4.2 (04/10/24) 9.4 (04/05/24) 10.4 (03/27/24) Iron Saturation (TSat) 19 (03/27/24) Iron 42 (03/27/24) TIBC 218 (03/27/24) MCV 103.2 (03/27/24) Platelets 239 (03/27/24) BMM ASSESSMENT PTH within target. Phosphorus controlled. Calcium controlled. Bone and mineral metabolism parameters reviewed. Calcium, Adjusted Total 9.5 03/27/24 Calcium 9.5 03/27/24 Phosphorus, Serum 5.0 03/27/24 Ca*PO4 47.5 03/27/24 Magnesium 2.3 03/27/24 Alkaline Phosphatase 184 03/27/24 NUTRITION ASSESSMENT Albumin at goal. Albumin 4.3 03/27/24 Potassium 5.8 04/03/24 6.8 03/27/24 ADDITIONAL LABS White Blood Cells 9.5 (03/27/24) ADDITIONAL COMMENT COMMENTS: 02/28/24 stable 04/08/24 doing ok Signed by: TJ LAROSE MD on 06/05/2024 at 08:59:28 AM documented in this encounter Plan of Treatment Not on file documented as of this encounter Visit Diagnoses Not on filedocumented in this encounter
--- OUTSIDE RECORDS SUMMARY | 2024-06-16 17:43 | XMS_ITS | Patient Health Record ---
Author Organization [facility] Address [address] [place] [address] Care Team Providers Care Conveyor Weigher Operator Name Role Phone Marco A Whitehead MD, Sammy Primary Care Provide r Unavailable Joao Schroeder Jr REASON FOR REFERRAL No Information MEDICATIONS Medication SIG (Take, Route, Frequency, Duration) Notes Start Date End Date Status Suboxone 8-2 MG 1 application under the tongue and allow to dissolve Sublingual Once a day Active Pantoprazole Sodium 40 MG 1 tablet Orall y Once a day for 30 day(s) 04/06/2016 Active Cardizem CD 180 MG 1 capsule Orally Onc e a day Active diphenhydrAMINE HCl 50 MG Orally Active Cyclobenzaprine HCl 10 MG 1 tablet Orall y Three times a day Active cloNIDine HCl 0.1 MG 1 tablet at bedtime Orally Once a day Active OXcarbazepine 300 MG Orally Active Acetaminophen 500 MG 2 capsules as neede d Orally every 6 hrs Active Proventil HFA 108 (90 Base) MCG/ACT 2 puffs as needed Inhalation every 4 hrs Active Spiriva HandiHaler 18 MCG Inhalation Active Aspir-81 81 MG 1 tablet Orally Once a day Active Zofran 4 MG 1 tablet Orally Once a day Active RisperDAL 2 MG 1 tablet Orally Once a day Active Flovent HFA 110 MCG/ACT 1 puff Inhalatio n Twice a day Active Losartan Potassium 100 MG 1 tablet Orall y Once a day Active metFORMIN HCl 1000 MG 1 tablet with meal s Orally Twice a day Active Furosemide 20 MG 3 tablet Orally Once a day Active Pepcid AC Maximum Strength 20 MG 1 tablet at bedtime Orally bid Active amLODIPine Besylate 10 MG 1 tablet Orall y Once a day Active Albuterol Sulfate (2.5 MG/3ML) 0.083% 3 ml Inhalation Three times a day Active hydrALAZINE HCl 25 MG 1 tablet Orally TID Active SOCIAL HISTORY Sex Assigned At : Social History Observation Description Sex Assigned At Unknown PROBLEMS Problem Type ICD Code Onset Dates Problem Status W/U Status Risk SNOMED Code Notes Problem Esophageal reflux (530.81) Active confirmed Esophageal reflux (810162735) Problem Other chronic nonalcoholic liver disease (571.8) Active confirmed Chronic nonalcoholic liver disease (26415826) Problem Gastroesophageal reflux disease without esophagitis (K21.9) Active confirmed 430949292 Problem Colon cancer screening (Z12.11) Active confirmed 502731295 Problem Hepatitis C virus infection, unspecified chronicity (B19.20) Active confirmed 76607334 Problem Steatohepatitis (K75.81) Active confirmed 896749698 Encounters Encounter Location Date Provider Diagnosis [facility] [address] [place] [phone] 05/15/2024 Joao Schroeder Jr [facility] [address] [place] [phone] 01/17/2024 Joao Schroeder Jr Steatohepatitis K75.81 [facility] [address] [phone] 01/18/2024 Joao Schroeder Jr ASSESSMENTS Encounter Date Diagnosis Assessment Notes Treatment Notes Treatment Clinical Notes 01/17/2024 Steatohepatitis (ICD-10 - K75.81) PLAN OF TREATMENT Pending Test Test Name Order Date [facility] 01/17/2024 Next Appt Details Provider Name:Joao cedillo Jr, 09/17/2024 10:40:00 AM, [address] [place] [address], Suite [facility], [place], [address], Insurance Providers Payer Name Payer Address Payer Phone Subscriber Number Group Number Insured Name Patient Relationship to Insured Coverage Start Date Coverage End Date [facility] [address] [place] [phone] [id number] BRUCE COBOS Self - patient is the insured MEDICAL (GENERAL) HISTORY Medical History History ICD Code diabetes egd and colonoscopy 07-03-2007 gastritiis GERD Hepatitis C hypertension Constipation Asthma LVH Substance abuse,currently in remission b y her report in 2006 Denies [place],CVA,renal disease Surgical History Surgery Date(Month/Year) Cholecystectomy
--- OUTSIDE RECORDS SUMMARY | 2024-06-16 17:43 | XMS_ITS | Encounter Summary ---
Author Organization [employer] Address [address] [place] [address] Care Team Providers Care Roll Table Operator Name Role Phone Sammy Reilly MD Primary Care Provide r Reason for Visit * Reason Comments Med Refill Encounter Details Date Type Department Care Team ([facility] st Contact Info) Description 01/16/2024 Refill [facility] [address] [place], [place] [phone] Sammy Reilly MD [address] [place], [place] [phone] Primary hypertension Social History Tobacco Use Types Packs/Day Years [...] enough money to get more: Never True 05/ Transportation Answer Date Recorded In the past [...] Description 06/20/2024 10:00 AM EST Office Visit [facility] [address] [place] [phone] Messi Mccollum MD [address] [place] [address] documented as of this encounter Goals Goal Patient Goal Type Associated Problems Recent Progress Patient-Stated? Author Check and record your blood sugars as directed Blood Pressure No Jimbo Burris PharmD Short-term: Promote adherence to treatment regimen General No Jimbo Burris PharmD Take your medication every day Lifestyle No Jimbo Burris PharmD documented as of this encounter Visit Diagnoses Diagnosis Primary hypertension Unspecified essential hypertension documented in this encounter Additional Health Concerns Assessment Noted Time PHQ-9 Depression Total Score: 11 024 9:25 AM EDT documented as of this encounter Care Teams Roll Table Operator Relationship Specialty Start Date End Date Sammy Reilly MD [address] [place] [address] PCP - General Internal Medicine 12/23/13 [employer] 04/08/22 Tj Larose MD Steelworker Nephrology 04/10/24 documented as of this encounter
--- OUTSIDE RECORDS SUMMARY | 2024-06-16 17:43 | XMS_ITS | Encounter Summary ---
Author Organization [employer] Address [address] [place] [address] Care Team Providers Care Paleology Teacher Name Role Phone Sammy Reilly MD Primary Care Provide r Reason for Visit * Reason Onset Date Comments PA 06/10/2024 Encounter Details Date Type Department Care Team ([facility] st Contact Info) Description 06/10/2024 Telephone [facility] [address] [place], [place] [phone] Sammy Reilly MD [address] [place], [place] [phone] PA Social History Tobacco Use Types Packs/Day Years [...] the past 12 months, has t he Total Eclipse, Flo[employer], oil or water [employer] threatened to shut off services in your [...] * Telephone Encounter - Jessica Blount - 06/10/2024 4:20 PM EST TC from pt calling stating need a PA for test strips. Pt doesn't have nothing to check her sugar. PCP DR. Strickland documented in this encounter Plan of Treatment Upcoming Encounters Date Type Department Care Team (Late st Contact Info) Description 06/20/2024 10:00 AM EST Office Visit [facility] [address] [place] [address] Messi Mccollum MD [address] [place] [address] documented as of this encounter Goals Goal [...] Noted Time PHQ-9 Depression Total Score: 11 05/30/2 024 9:25 AM EDT documented as of this encounter Care Teams Paleology Teacher Relationship Specialty Start Date End Date Sammy Reilly MD [address] [place] [address] PCP - General Internal Medicine 12/23/13 [employer] 04/08/22 Tj Larose MD Engine House Helper Nephrology 04/10/24 documented as of this encounter
--- OUTSIDE RECORDS SUMMARY | 2024-06-16 17:43 | XMS_ITS | Clinical Summary ---
Author Organization [facility] Address [address] [place] [address] Phone Care Team Providers Care Roller Printing Supervisor Name Role Phone Unavailable Primary Care Provider Unavailabl e Medications Albuterol Sulfate (PROAIR HFA IN) Active acetaminophen (TYLENOL) 500 MG tablet Take 1 tablet by mouth 2 (two) times a day 08/15/2016 Active amLODIPine (NORVASC) 10 MG tablet Take 1 tablet by mouth 1 (one) time each day Active aspirin (ST HAILE) 81 MG EC tablet Take 1 tablet by mouth 1 (one) time each day Active Buprenorphine HCl-Naloxone HCl (Suboxone) 8-2 MG per SL film Place 0.5 Film under the tongue 3 (three) times a day Active diphenhydrAMINE (SOMINEX) 25 MG tablet Take 2 tablets by mouth 1 (one) time each day Active docusate sodium (Colace) 100 MG capsule Take by mouth 1 (one) time each day Active famotidine (Pepcid) 20 MG tablet Take 1 tablet by mouth 2 (two) times a day Active fluticasone HFA (Flovent HFA) 110 MCG/ACT inhaler Active losartan (COZAAR) 100 MG tablet Take 1 tablet by mouth 1 (one) time each day Active metFORMIN (GLUCOPHAGE) 1000 MG tablet Take 1 tablet by mouth 2 (two) times a day Active ondansetron (Zofran) 4 MG tablet Take 1 tablet by mouth 4 (four) times a day Active OXcarbazepine (TRILEPTAL) 300 MG tablet Take 3 tablets by mouth Active pantoprazole (PROTONIX) 40 MG EC tablet Take 1 tablet by mouth 1 (one) time each day Active risperiDONE (RisperDAL) 2 MG tablet Take 1 tablet by mouth every night Active tiotropium (Spiriva HandiHaler) 18 MCG per inhalation capsule 1 capsule by Other route 1 (one) time each day Active dilTIAZem CD (Cardizem CD) 360 MG 24 hr capsule Take 1 capsule (360 mg total) by mouth 1 (one) time each day 30 capsule 11 06/30/2021 Active cloNIDine (CATAPRES) 0.2 MG tablet Take 1 tablet (0.2 mg total) by mouth in the morning and 1 tablet (0.2 mg total) in the evening. 60 tablet 11 06/30/2021 Active hydrALAZINE 50 MG tablet Take 1 tablet (50 mg total) by mouth in the morning and 1 tablet (50 mg total) in the evening and 1 tablet (50 mg total) before bedtime. 90 tablet 11 06/30/2021 Active sevelamer carbonate (RENVELA) 800 MG tablet TAKE 1 TABLET BY MOUTH TWICE DAILY WITH ONLY 2 MEALS 60 tablet 3 01/30/2022 Active bumetanide (BUMEX) 2 MG tablet TAKE 1 TABLET BY MOUTH EVERY DAY 30 tablet 08/30/2022 Active senna (SENOKOT) 8.6 MG tablet TAKE 1 TABLET BY MOUTH EVERY DAY NEEDED 30 tablet 3 02/05/2023 Active Banophen 25 MG capsule TAKE 1 CAPSULE BY MOUTH EVERY DAY NEEDED 30 capsule 3 03/09/2023 Active Active Problems Problem Noted Date Diagnosed Date End stage renal disease 11/07/2021 Dependence on renal dialysis 11/07/2021 Esophageal reflux finding 06/29/2021 Chronic nonalcoholic liver disease 06/29/2021 Chronic kidney disease stage 3 01/06/2021 Essential hypertension 01/06/2021 Resolved Problems Problem Noted Date Diagnosed Date Resolved Date Viral hepatitis C 06/29/2021 11/08/2021 Screening for malignant neoplasm of colon 06/29/2021 11/08/2021 Gastro-esophageal reflux dis ease without esophagitis 06/29/2021 11/08/2021 Cerebral hemorrhage 05/10/2021 11/09/19 Anemia of chronic disease 01/06/2021 Hypo-osmolality and or hyponatremia 01/06/2021 11/08/2021 Urinary incontinence 01/06/2021 022 Encounters Date Type Department Care Team Description 06/07/2024 Treatment [facility] [address] [place] [phone] Tj Larose MD 06/05/2024 Treatment [facility] [address] [phone] Tj Larose MD 05/10/2024 Treatment [facility] [address] [address] Tj Larose MD 05/08/2024 Treatment [facility] [address] [address] Tj Larose MD 05/01/2024 Treatment [facility] [address] [place] [address] Clive Lange MD 04/26/2024 Treatment [facility] [address] [place] [address] Tj Larose MD 04/08/2024 Treatment [facility] [address] [address] Clive Lange MD 2024 Treatment [facility] [address] [phone] jT Larose MD 03/29/2024 Treatment [facility] [address] [address] Tj Larose MD 03/22/2024 Treatment [facility] [address] [place] [address] Tj Larose MD 03/20/2024 Orders Only [facility] [address] [address] Christoph Koroma MD from Last 3 Months Family History Medical History Relation Comments Hypertension Father Heart disease Mother Hypertension Mother Diabetes Sibling Relation Status Comments Father Mother Sibling Social History Tobacco Use Types Packs/Day Years Used Date Smoking Tobacco: Every Day Alcohol Use Standard Drinks/Week Comments No 0 (1 standard drink = 0.6 oz pur e alcohol) Comments Unknown Sex and Gender Information Value Date Recorded Sex Assigned at Not on file Legal Sex Female 5:08 PM EST Gender Identity Not on file Sexual Orientation Not on file Plan of Treatment Health Maintenance Due Date Last Done Comments Breast Cancer Screening 1955 Hepatitis B Vaccine (1 of 5 - Risk Dialysis 4-dose series) 1976 04/09/2003, 11/17/1999 Colorectal Cancer Screening: Annual FOBT 2005 Colorectal Cancer Screening: Colonoscopy 2005 Colorectal Cancer Screening: Sigmoidoscopy 2005 Influenza Vaccine (#1) 2024 , 05/29/2018, 07/12/2015, Additional history exists Diabetes: Ophthalmology Exam 05/30/2024 Diabetes: Pedal Pulse Checked 05/30/2024 Diabetes: Sensory Foot Exam 05/30/2024 Diabetes: Visual Foot Exam 05/30/2024 Diabetes: Hemoglobin A1C 06/11/2024 024, 12/29/2021, 07/05/2021, Additional history exists Pneumococcal Vaccine: 65+ Years Completed 09/05/2022, 08/04/2022, 07/12/2015, Additional history exists Procedures Procedure Name Priority Date/Time Associated Diagnosis Comments HEMOGLOBIN AND HEMATOCRIT, BLOOD Routine 04/10/2024 3:00 AM EST HEMOGLOBIN AND HEMATOCRIT, BLOOD Routine 2024 3:00 AM EST COLLECTION DATE (HC) Routine 2024 3:00 AM EST ELECTROLYTE PANEL Routine 04/03/2024 3:0 0 AM EST LIH (HC) Routine 04/03/2024 3:00 AM EST TRANSFERRIN SATURATION Routine 3:00 AM EST PROTEIN, TOTAL, SERUM Routine 03/27/2024 3:00 AM EST MAGNESIUM Routine 03/27/2024 3:00 AM EST ELECTROLYTE PANEL Routine 03/27/2024 3:0 0 AM EST LIH (HC) Routine 03/27/2024 3:00 AM EST LACTATE DEHYDROGENASE Routine 03/27/2024 3:00 AM EST GLUCOSE, RANDOM Routine 03/27/2024 3:00 AM EST CREATININE, SERUM Routine 03/27/2024 3:0 0 AM EST BILIRUBIN, TOTAL Routine 03/27/2024 3:00 AM EST AST Routine 03/27/2024 3:00 AM EST ALKALINE PHOSPHATASE Routine 03/27/2024 3:00 AM EST ALT Routine 03/27/2024 3:00 AM EST CALCIUM PHOSPHORUS PRODUCT, ADJUSTED (HC) Routine 03/27/2024 3:00 AM EST HEPATITIS B SURFACE ANTIGEN W/REFL CONFIRM Routine 03/27/2024 3:00 AM EST KT/V NATURAL LOG, URR (HC) Routine 03/27/2024 3:00 AM EST CBC AND DIFFERENTIAL Routine 03/27/2024 3:00 AM EST HEMOGLOBIN Routine 03/20/2024 3:00 AM EDT SPECIAL CHEMISTRY Routine 12/29/2021 10: 00 AM EDT from Last 3 Months or Most Recently Relevant to Health Maintenance Results * (ABNORMAL) Hemoglobin and hematocrit (04/10/2024 3:00 AM EST) Only the most recent of2 resultswithin the time period is included. Hgb 4.2(LL) 11.2 - 15.7 g/dL [facility] Comment: ALERT: Result verified by repeat analysis with no evidence of clotting detected. Consider other preanalytical factors such as sample dilution/contamination as a possible cause. Clinical correlation with redraw recommended if not consistent with patient history. Hematocrit 13.3(L) 34.1 - 44.9 % [facility] Hemoglobin x 3 12.6(L) 33.6 - 47.1 g/dL [facility] 04/10/2024 3:00 AM EST 04/11/2024 12:49 PM EST Tj Larose MD LAB BLOOD ORDERABLES Final Result Performing Organization Address [facility] Co de Phone Number [facility] [address] [place] [address] * Collection Date (2024 3:00 AM EST) Pathologist [facility] Collection Date See Comment [facility] Comment: Patient sample received may exceed specimen stability, based on the collection date electronically provided. ??When reviewing patient results, verify collection information and consider specimen stability before acting on any critical or panic results. 2024 3:00 AM EST Tj Larose MD LAB HISTORICA [id number] RESULTS Final Result Performing Organization Address [facility] Co de Phone Number [facility] [address] [place] [address] * LIH (04/03/2024 3:00 AM EST) Only the most recent of2 resultswithin the time period is included. Pathologist [facility] Lipemia Normal Normal [facility] Icterus Normal Normal [facility] Hemolysis Normal Normal [facility] 04/03/2024 3:00 AM EST 04/04/2024 1:38 PM EST us Tj Larose MD LAB HISTORICA [id number] RESULTS Final Result Performing Organization Address [facility] Co de Phone Number [facility] [address] [place] [address] * (ABNORMAL) Electrolyte panel (04/03/2024 3:00 AM EST) Only the most recent of2 resultswithin the time period is included. Sodium 132(L) 136 - 145 mEq/L [facility] Potassium 5.8(H) 3.4 - 5.0 mEq/L [facility] Chloride 94(L) 98 - 107 mEq/L [facility] Bicarbonate (CO2) 24 21 - 31 mEq/L [facility] Anion Gap 14 3 - 14 mEq/L [facility] 04/03/2024 3:00 AM EST 04/04/2024 1:38 PM EST us Tj Larose MD LAB BLOOD ORDERABLES Final Result Performing Organization Address [facility] de Phone Number [facility] [address] [place] [address] * (ABNORMAL) Kt/V Natural Log, URR (03/27/2024 3:00 AM EST) Treatment Time 220 min [facility] Pre-Weight, lb 71.5 kg [facility] Post-Weight, lb 68.0 kg [facility] Ultrafiltration Rate 14(H) <=13 mL/kg/hr [facility] Comment: Recommend achieving Ultrafiltration Rate (UFR) <=10 mL/kg/hr References: Tanja MCCRACKEN et al. Kidney Int. 2010; 79(2):250-257 BUN 46(H) 7 - 25 mg/dL [facility] BUN Post Dialysis 10 7 - 25 mg/dL [facility] UREA REDUCTION RATIO (%) 78 >=65 % [facility] Kt/V Natural Log 1.84 >=1.2 [facility] 03/27/2024 3:00 AM EST 03/28/2024 12:15 PM EST us Christoph Koroma MD LAB HISTORICAL-CONVERSION S-UNSOLICITED RESULTS Final Result Performing Organization Address [facility]/ZIP Co de Phone Number [facility] [address] [place] [address] * Calcium Phosphorus Product, Adjusted (03/27/2024 3:00 AM EST) Albumin 4.3 3.6 - 5.4 g/dL [facility] Calcium 9.5 8.6 - 10.3 mg/dL [facility] Phosphorus, Serum 5.0 2.5 - 5.0 mg/dL [facility] Ca*PO4 47.5 <55.0 mg2/dL2 [facility] Calcium, Adjusted Total 9.5 8.6 - 10.3 mg/dL [facility] CA*PO4 CORRCTD 47.5 <55.0 mg2/dL2 [facility] 03/27/2024 3:00 AM EST 03/28/2024 12:51 PM EST us Christoph Koroma MD LAB HISTORICAL-CONVERSION S-UNSOLICITED RESULTS Final Result Performing Organization Address [facility] Co de Phone Number [facility] [address] [place] [address] * Hepatitis B Surface Ag w/Reflex Confirmation (03/27/2024 3:00 AM EST) Hep B Surface Antigen Negative Negative [facility] 03/27/2024 3:00 AM EST 03/28/2024 12:51 PM EST us Christoph Koroma MD LAB BLOOD ORDERABLES Jacy l Result Performing Organization Address [facility]/ZIP Co de Phone Number [facility] [address] [place] [address] * (ABNORMAL) TSAT (03/27/2024 3:00 AM EST) Iron 42(L) 50 - 170 ug/dL [facility] Transferrin 156(L) 250 - 380 mg/dL [facility] TIBC 218 211 - 406 ug/dL [facility] Iron Saturation (TSat) 19(L) 22 - 52 % [facility] 03/27/2024 3:0 0 AM EST 03/28/2024 12:51 PM EST Christoph Koroma MD LAB BLOOD ORDERABLES Jacy montes Result [facility] [address] [place] [address] * (ABNORMAL) CBC and Differential (03/27/2024 3:00 AM EST) DIFFERENTIAL MANUAL, 2 Not Indicated [facility] White Blood Cells 9.5 4.0 - 10.0 K/uL [facility] RBC 3.11(L) 3.93 - 5.22 M/uL [facility] Hgb 10.4(L) 11.2 - 15.7 g/dL [facility] Hemoglobin x 3 31.2(L) 33.6 - 47.1 g/dL [facility] Hematocrit 32.1(L) 34.1 - 44.9 % [facility] MCV 103.2(H) 79.4 - 94.8 fL [facility] MCH 33.4(H) 25.6 - 32.2 pg [facility] MCHC 32.4 32.2 - 35.5 g/dL [facility] Platelets 239 182 - 369 K/uL [facility] RDW 14.8(H) 11.7 - 14.4 % [facility] Neutrophils Relative 72.5(H) 34.0 - 71.1 % [facility] Lymphocytes Relative 15.6(L) 19.3 - 51.7 % [facility] Monocytes 6.9 4.7 - 12.5 % [facility] Eosinophils Relative 3.9 0.7 - 5.8 % [facility] Basophils Relative 0.4 0.1 - 1.2 % [facility] Immature Granulocytes 0.7 0.0 - 1.0 % [facility] 03/27/2024 3:00 AM EST 03/28/2024 12:10 PM EST Christoph Koroma MD LAB BLOOD ORDERABLES Jacy l Result [facility] [address] [place] [address] * ALT (03/27/2024 3:00 AM EST) ALT (SGPT) 15 10 - 49 U/L [facility] 03/27/2024 3:00 AM EST 03/28/2024 12:51 PM EST us Christoph Koroma MD LAB BLOOD ORDERABLES Jacy l Result Performing Organization Address [facility] Co de Phone Number [facility] [address] [place] [address] * AST (03/27/2024 3:00 AM EST) AST (SGOT) 22 <34 U/L [facility] 03/27/2024 3:00 AM EST 03/28/2024 12:51 PM EST Christoph Koroma MD LAB BLOOD ORDERABLES Jacy l Result Performing Organization Address [facility] Co de Phone Number [facility] [address] [place] [address] * Protein, total (03/27/2024 3:00 AM EST) [facility] Total Protein 7.1 6.4 - 8.9 g/dL [facility] 03/27/2024 3:00 AM EST 03/28/2024 12:51 PM EST Christoph Koroma MD LAB BLOOD ORDERABLES Jacy l Result Performing Organization Address [facility] Co de Phone Number [facility] [address] [place] [address] * (ABNORMAL) Alkaline phosphatase (03/27/2024 3:00 AM EST) Pathologist [facility] Alkaline Phosphatase 184(H) 46 - 116 U/L [facility] 03/27/2024 3:00 AM EST 03/28/2024 12:51 PM EST us Christoph Koroma MD LAB BLOOD ORDERABLES Jacy l Result Performing Organization Address [facility]/ZIP Co de Phone Number [facility] [address] [place] [address] * Magnesium (03/27/2024 3:00 AM EST) Magnesium 2.3 1.9 - 2.7 mg/dL [facility] 03/27/2024 3:00 AM EST 03/28/2024 12:51 PM EST Christoph Koroma MD LAB BLOOD ORDERABLES Jacy l Result Performing Organization Address [facility] de Phone Number [facility] [address] [place] [address] * (ABNORMAL) Lactate dehydrogenase (03/27/2024 3:00 AM EST) LDH 269(H) 120 - 246 U/L [facility] 03/27/2024 3:00 AM EST 03/28/2024 12:51 PM EST Christoph Koroma MD LAB BLOOD ORDERABLES Jacy l Result Performing Organization Address [facility] de Phone Number [facility] [address] [place] [address] * Glucose, random (03/27/2024 3:00 AM EST) Glucose 102 74 - 109 mg/dL [facility] 03/27/2024 3:00 AM EST 03/28/2024 12:51 PM EST Christoph Koroma MD LAB BLOOD ORDERABLES Jacy l Result Performing Organization Address [facility] Co de Phone Number [facility] [address] [place] [address] * (ABNORMAL) Creatinine, serum (03/27/2024 3:00 AM EST) Creatinine 7.75(H) 0.55 - 1.02 mg/dL [facility] 03/27/2024 3:00 AM EST 03/28/2024 12:51 PM EST us Christoph Koroma MD LAB BLOOD ORDERABLES Jacy l Result Performing Organization Address [facility]/ZIP Co de Phone Number [facility] [address] [place] [address] * (ABNORMAL) Bilirubin, total (03/27/2024 3:00 AM EST) Total Bilirubin <0.2(L) 0.3 - 1.2 mg/dL [facility] 03/27/2024 3:00 AM EST 03/28/2024 12:51 PM EST us Christoph Koroma MD LAB BLOOD ORDERABLES Jacy l Result Performing Organization Address [facility] Co de Phone Number [facility] [address] [place] [address] * (ABNORMAL) Hemoglobin (03/20/2024 3:00 AM EDT) Hgb 10.2(L) 11.2 - 15.7 g/dL [facility] Hemoglobin x 3 30.6(L) 33.6 - 47.1 g/dL [facility] 03/20/2024 3:00 AM EDT 03/21/2024 12:55 PM EDT Christoph Koroma MD LAB BLOOD ORDERABLES Jacy l Result Performing Organization Address [facility] Co de Phone Number [facility] [address] [place] [address] * SPECIAL CHEMISTRY (12/29/2021 10:00 AM EDT) Hemoglobin A1C 5.1 4.8 - 5.9 % [facility] 12/29/2021 10:0 0 AM EDT 12/30/2021 8:33 AM EDT Narrative [facility] - 12/29/2021 10:00 AM EDT Unless otherwise specified, test(s) performed at: [facility] [id number] WAITSTAFF: John Salcido M.D. For any questions, please call customer service at FREQUENCY:QUARTERLY Resulting Agency Comment Specimen source: Blood Miguel López MD LAB BLOOD BANK TEST ORDERABLES Final Result [facility] from Last 3 Months or Most Recently Relevant to Health Maintenance [place] [address] [place] [address] MCR ([id number]) [address] [place] [id number] [facility] MCR ([id number])
--- OUTSIDE RECORDS SUMMARY | 2024-06-16 17:43 | XMS_ITS | Encounter Summary ---
Author Organization [facility] Address [address] [place] [address] Care Team Providers Care Marine Architect Name Role Phone Sammy Strickland MD Primary Care Provider [phone] Encounter Details Date Type Department Care Team (Latest Contact Info) Description 03/27/2022 Hospital Encounter Social History Tobacco Use Types Packs/Day Years Used Date Smoking Tobacco: Never Assessed AUDIT-C Answer Date Recorded Q1: How often do you have a drink containing alcohol? Never 03/28/2022 Q2: How many drinks containi ng alcohol do you have on a typical day when you are drinking? Patient does not drink Q3: How often do you have si [...] suspected to have Coronavirus/COVID-19? No / Unsure 03/27/2022 4:50 AM EST documented as of this encounter Plan of Treatment Not on file documented as of this encounter Visit Diagnoses Not on filedocumented in this encounter Care Teams Marine Architect Relationship Specialty Start Date End Date Sammy Strickland MD [address] [place] [address] [place] [address] PCP - General 03/27/22 documented as of this encounter
--- OUTSIDE RECORDS SUMMARY | 2024-06-16 17:43 | XMS_ITS | Encounter Summary ---
Author Organization [employer] Address [address] [place] [address] Care Team Providers Care Water Tender Name Role Phone Sammy Reilly MD Primary Care Provide r Reason for Visit * Reason Onset Date Comments Medication Question 06/16/2024 Encounter Details Date Type Department Care Team ([facility] Contact Info) Description 06/16/2024 Telephone [facility] [address] [place], [place] [phone] Lashawn Bang RN [address] [place], [place] [phone] Medication Question Social History Tobacco Use Types [...] encounter Miscellaneous Notes * Telephone Encounter - Lashawn Bang RN - 06/16/2024 3:07 PM EST Received fax from pharmacy stating glucometer strips Rxd as 5 times daily. However, [employer] will only cover TID. Requesting we either resend as TID or do PA for her to get 5 times daily. Please advise documented in this encounter Plan of Treatment Upcoming Encounters Date Type Department Care Team (Late st Contact Info) Description 06/20/2024 10:00 AM EST Office Visit [facility] [address] [place] [address] Messi Mccollum MD [address] [place] [address] documented as of this encounter Goals Goal [...] documented as of this encounter Care Teams Water Tender Relationship Specialty Start Date End Date Sammy Reilly MD [address] [place] [address] PCP - General Internal Medicine 12/23/13 [employer] 04/08/22 Tj Larose MD Industrial Chemicals Supervisor Nephrology 04/10/24 documented as of this encounter
--- OUTSIDE RECORDS SUMMARY | 2024-06-16 17:43 | XMS_ITS ---
Author Organization [facility] Address [address] [place] [address] Care Team Providers Care Master Carpenter Name Role Phone Marco A Whitehead MD, Sammy Primary Care Provide r Toma Schroeder Jr, Joao Chua REASON FOR VISIT Patient presents today for ascites Encounters Encounter Location Date Provider Diagnosis [facility] [address] [place] [address] 05/15/2024 Joao Schroeder Jr PLAN OF TREATMENT Next Appt Details Provider Name:Joao cedillo Jr, 09/17/2024 10:40:00 AM, [address], [address], [place], [address],
--- OUTSIDE RECORDS SUMMARY | 2024-06-16 17:43 | XMS_ITS | Encounter Summary ---
Author Organization [employer] Address [address] [place] [address] Care Team Providers Care Precision Grinder External Name Role Phone Sammy Reilly MD Primary Care Provide r Reason for Visit * Reason Onset Date Comments Med Refill 06/16/2024 Encounter Details Date Type Department Care Team ([facility] st Contact Info) Description 06/16/2024 Refill [facility] [address] [place], [place] [phone] Demi Esquivel RN Uncomplicated opioid dependence (CMS/HCC) Social History Tobacco [...] Description 06/20/2024 10:00 AM EST Office Visit [facility] [address] [place] [phone] Messi Mccollum MD [address] [place] [address] documented as of this encounter Goals Goal Patient Goal Type Associated Problems Recent Progress Patient-Stated? Author Check and record your blood sugars as directed Blood Pressure No Jimbo Burris, PharmD Short-term: Promote adherence to treatment regimen General No Jimbo Burris PharmD Take your medication every day Lifestyle No Jimbo Burris PharmD documented as of this encounter Visit Diagnoses Diagnosis Uncomplicated opioid dependence (CMS/HCC) documented in this encounter Additional Health Concerns Assessment Noted Time PHQ-9 Depression Total Score: 11 024 9:25 AM EDT documented as of this encounter Care Teams Precision Grinder External Relationship Specialty Start Date End Date Sammy Reilly MD [address] [place] [address] PCP - General Internal Medicine 12/23/13 [employer] 04/08/22 Tj Larose MD [address] [employer] Nephrology 04/10/24 documented as of this encounter
--- OUTSIDE RECORDS SUMMARY | 2024-06-16 17:43 | XMS_ITS | Encounter Summary ---
Author Organization [employer] Address [address] [facility] 7t [place] [address] Care Team Providers Care Machine Clothing Replacer Name Role Phone Sammy Reilly MD Primary Care Provide r Reason for Visit * Reason Comments Med Refill Encounter Details Date Type Department Care Team ([facility] st Contact Info) Description 06/07/2024 Refill [facility] [address] [place] [address] Sebastián Loar MD [address] [place] [address] Chronic obstructive pulmonary disease, unspecified COPD type [...] the past 12 months, has t he [employer], gas, oil or water company threatened to [...] Description 06/20/2024 10:00 AM EST Office Visit [facility] [address] [place] [address] Messi Mccollum MD [address] [place] [address] documented as of this encounter Goals Goal [...] as of this encounter Care Teams Machine Clothing Replacer Relationship Specialty Start Date End Date Sammy Reilly MD [address] [place] [address] PCP - General Internal Medicine 12/23/13 [facility] 04/08/22 Tj Larose MD [employer] Nephrology 04/10/24 documented as of this encounter
--- OUTSIDE RECORDS SUMMARY | 2024-06-16 17:43 | XMS_ITS | Encounter Summary ---
Author Organization [facility] Address [address] [place] [address] Phone Care Team Providers Care Knitting Tester Name Role Phone Unavailable Primary Care Provider Unavailabl e Encounter Details Date Type Department Care Team (Late st Contact Info) Description 07/18/2022 Telephone [facility] [address] [place] [address] Concepción Cruz MA Social History Tobacco Use Types Packs/Day Years [...] encounter Miscellaneous Notes * Telephone Encounter - Concepción Cruz MA - 07/18/2022 1:55 PM EST Harish hendrix * Telephone Encounter - Concepción Cruz MA - 07/18/2022 1:46 PM EST Dialysis called, they need a script for Dronabinol 2.5 mg 2 tabs daily. They can't refill because its a controlled substance. Please advise documented in this encounter Plan of Treatment Not on file documented as of this encounter Visit Diagnoses Not on filedocumented in this encounter
--- OUTSIDE RECORDS SUMMARY | 2024-06-16 17:43 | XMS_ITS | Encounter Summary ---
Author Organization [facility] Address [address] [address] Phone Care Team Providers Care Community Services Officer Name Role Phone Unavailable Primary Care Provider Unavailabl e Encounter Details Date Type Department Care Team (Late st Contact Info) Description 06/07/2024 Treatment [facility] [address] [address] Tj Larose MD [address] [address] Social History Tobacco Use Types [...] Dialysis Note - Tj Larose MD - 06/07/2024 12:00 AM EST Patient: Cruz Muller : 1955 Note Type: Dialysis Rounds-Basic Service Date: 06/07/2024 This patient was personally seen for a basic visit as part of routine monthly dialysis care for end stage renal disease. Attending Card Feeder: TJ LAROSE MD Dialysis Location: [facility] Schedule: Shift: 2 OVERVIEW Patient is stable. COMMENTS: Note in dialysis science manager ADEQUACY ASSESSMENT Kt/V, Natural Log 1.84 (03/27/24) UREA REDUCTION RATIO (%) 78 (03/27/24) BUN 46 (03/27/24) BUN Post Dialysis 10 (03/27/24) Creatinine 7.75 (03/27/24) Bicarbonate (CO2) 24 (04/03/24) 25 (03/27/24) Sodium 132 (04/03/24) 130 (03/27/24) ANEMIA ASSESSMENT Hgb 4.2 (04/10/24) 9.4 (04/05/24) 10.4 (03/27/24) Iron Saturation (TSat) 19 (03/27/24) Iron 42 (03/27/24) TIBC 218 (03/27/24) MCV 103.2 (03/27/24) Platelets 239 (03/27/24) BMM ASSESSMENT Calcium, Adjusted Total 9.5 03/27/24 Calcium 9.5 03/27/24 Phosphorus, Serum 5.0 03/27/24 Ca*PO4 47.5 03/27/24 Magnesium 2.3 03/27/24 Alkaline Phosphatase 184 03/27/24 NUTRITION ASSESSMENT Albumin 4.3 03/27/24 Potassium 5.8 04/03/24 6.8 03/27/24 ADDITIONAL LABS White Blood Cells 9.5 (03/27/24) ADDITIONAL COMMENT COMMENTS: 02/28/24 stable 04/08/24 doing ok Signed by: TJ LAROSE MD on 06/07/2024 at 01:02:48 PM documented in this encounter Plan of Treatment Not on file documented as of this encounter Visit Diagnoses Not on filedocumented in this encounter
--- OUTSIDE RECORDS SUMMARY | 2024-06-16 17:43 | XMS_ITS | Encounter Summary ---
Author Organization [employer] Address [address] 7t [place] [address] Care Team Providers Care Chief Operating Engineer Name Role Phone Sammy Reilly MD Primary Care Provide r Reason for Visit * Reason Onset Date Comments Med Refill 05/30/2024 Encounter Details Date Type Department Care Team ([facility] st Contact Info) Description 05/30/2024 Refill [facility] [address] [place], [place] [phone] Jessica Rahman RN Uncomplicated opioid dependence (CMS/HCC) Social History [...] Description 06/20/2024 10:00 AM EST Office Visit [facility] [address] [place] [address] Messi Mccollum MD [address] [place] [address] documented as of this encounter Goals Goal [...] documented as of this encounter Care Teams Chief Operating Engineer Relationship Specialty Start Date End Date Sammy Reilly MD [address] [place] [address] PCP - General Internal Medicine 12/23/13 [employer] 04/08/22 Tj Larose MD Processing Analyst Nephrology 04/10/24 documented as of this encounter
--- OUTSIDE RECORDS SUMMARY | 2024-06-16 17:43 | XMS_ITS | Encounter Summary ---
Author Organization [employer] Address [address] 7[address] [place] [address] Care Team Providers Care Translator Deaf Name Role Phone Sammy Reilly MD Primary Care Provide r Reason for Visit * Reason Onset Date Comments Chart Prep 06/05/2024 Encounter Details Date Type Department Care Team ([facility] Contact Info) Description 06/05/2024 Telephone [facility] [address] [place], [place] [phone] Sammy Reilly MD [address] [place], [place] [phone] Chart Prep Social History Tobacco Use Types Packs/Day Years [...] the past 12 months, has t he [employer], [employer], oil or water [employer] threatened to shut off services in your [...] encounter Miscellaneous Notes * Telephone Encounter - Aracely Christensen MA - 06/05/2024 3:22 PM EST Chart Prep Labs: not applicable Images: not applicable Vaccines due: Updated, Covid Due, Hep A Due, Hep B Due, RSV in Pharmacy Due, and Shingles in pharmacy Due Referrals: General Surgery Appt on 07/03/2024 @2PM. Screenings: Colonoscopy , Eye Exam, and Foot Exam Overdue care gaps: A1C and Glucose Chart prep for upcoming appt with Dr.Esparza alicea. LB documented in this encounter Plan of Treatment Upcoming Encounters Date Type Department Care Team (Late st Contact Info) Description 06/20/2024 10:00 AM EST Office Visit [facility] [address] [place] [address] Messi Mccollum MD [address] [place] [address] documented as of this encounter Goals Goal [...] documented as of this encounter Care Teams Translator Deaf Relationship Specialty Start Date End Date Sammy Reilly MD [address] [place] [address] PCP - General Internal Medicine 12/23/13 [facility] 04/08/22 Tj Larose MD [employer] Certified Powerplant Mechanic Nephrology 04/10/24 documented as of this encounter
--- OUTSIDE RECORDS SUMMARY | 2024-06-16 17:43 | XMS_ITS | Clinical Summary ---
Author Organization [facility] Address [address] [place] [address] Care Team Providers Care Utilization Reviewer Name Role Phone Micheal Irvin MD Primary Care Provider [phone] Social History Tobacco Use Types Packs/Day Years Used Date Smoking Tobacco: Never Assessed Sex and Gender Information Value Date Recorded Sex Assigned at Not on file Gender Identity Not on file Sexual Orientation Not on file Plan of Treatment Health Maintenance Due Date Last Done Comments Breast Cancer Screening 1955 DTaP,Tdap,and Td Vaccines (1 - Tdap) 1975 Zoster Vaccines (1 of 2) 2006 Pneumococcal Vaccine: 65+ Ye ars (1 of 1 - PCV) 2021 Colorectal Cancer Screening: Colonoscopy 04/19/2022 Falls Risk Assessment 04/19/2022 Hepatitis C Screening 04/19/2022 Osteoporosis Screening (Bone Density Screening) 04/19/2022 Social Influencers of Health Screening 04/19/2022 Depression Screening 10/04/2023 10/03/2022 COVID-19 Vaccine ( - 2023-2 5 season) 2024 Influenza Vaccine (#1) 2024 RSV Immunization Patients 60 + Years Old (1 - 1-dose 75+ series) 2031 HIB Vaccines Aged Out No longer eligi ble based on patient's age to complete this topic HPV Vaccines Aged Out No longer eligi ble based on patient's age to complete this topic Hepatitis A Vaccines Aged Out No long er eligible based on patient's age to complete this topic Hepatitis B Vaccines Aged Out No long er eligible based on patient's age to complete this topic IPV Vaccines Aged Out No longer eligi ble based on patient's age to complete this topic MMR Vaccines Aged Out No longer eligi ble based on patient's age to complete this topic Meningococcal ACWY Vaccine Aged Out N o longer eligible based on patient's age to complete this topic RSV Immunization Patients Un baldo 20 months Aged Out No longer eligible b ased on patient's age to complete this topic Varicella Vaccines Aged Out No longer eligible based on patient's age to complete this topic Care Teams Utilization Reviewer Relationship Specialty Start Date End Date Micheal Irvin MD PCP - General General Surgery 08/25/21
--- OUTSIDE RECORDS SUMMARY | 2024-06-16 17:43 | XMS_ITS | Encounter Summary ---
Author Organization [employer] Address [address] 7[address] [place] [address] Care Team Providers Care Miller First Name Role Phone Sammy Reilly MD Primary Care Provide r Reason for Visit * Reason Comments Med Refill Encounter Details Date Type Department Care Team ([facility] st Contact Info) Description 06/16/2024 Refill [facility] [address] [place], [place] [phone] Messi Mccollum MD [address] [place], [place] [phone] Uncomplicated opioid dependence (CMS/HCC) Social History Tobacco [...] the past 12 months, has t he [employer], gas, oil or water company threatened to [...] Office Visit [facility] [address] [place] [address] [phone] Messi Mccollum MD [address] [place] [address] [phone] documented as of this encounter Goals Goal [...] documented as of this encounter Care Teams Miller First Relationship Specialty Start Date End Date Sammy Reilly MD [address] [place] [address] [phone] PCP - General Internal Medicine 12/23/13 [employer] 04/08/22 Tj Larose MD Medical Receptionist Medical Assistant Nephrology 04/10/24 documented as of this encounter
--- OUTSIDE RECORDS SUMMARY | 2024-06-16 17:43 | XMS_ITS | Encounter Summary ---
Author Organization [employer] Address [address] 7[address] [place] [address] Care Team Providers Care New Media Strategist Name Role Phone Sammy Reilly MD Primary Care Provide r Encounter Details Date Type Department Care Team ([facility] st Contact Info) Description 06/16/2024 Telephone [facility] [address] [place], [place] [phone] Demi Esquivel RN Social History Tobacco Use [...] 06/20/2024 10:00 AM EST Office Visit [facility] [address] [place] [phone] Messi Mccollum MD [address] [place] [address] documented as of this encounter Goals Goal [...] documented as of this encounter Care Teams New Media Strategist Relationship Specialty Start Date End Date Sammy Reilly MD [address] [place] [address] PCP - General Internal Medicine 12/23/13 [place] 04/08/22 Tj Larose MD Face And Fill Packer Nephrology 04/10/24 documented as of this encounter
--- OUTSIDE RECORDS SUMMARY | 2024-06-16 17:43 | XMS_ITS | Encounter Summary ---
Author Organization [employer] Address [address] 7[address] [place] [address] Care Team Providers Care Respite Care Provider Name Role Phone Sammy Reilly MD Primary Care Provide r Reason for Visit * Reason Onset Date Comments No Show 06/12/2024 Encounter Details Date Type Department Care Team ([facility] Contact Info) Description 06/12/2024 Telephone [facility] 230 [place], [place] [phone] Sammy Reilly MD 230 [place], [place] [phone] No Show Social History Tobacco Use Types Packs/Day Years [...] the past 12 months, has t he [employer], [employer], oil or water [employer] threatened to shut off services in your [...] encounter Miscellaneous Notes * Telephone Encounter - Mecca Bermudez - 06/12/2024 3:14 PM EST Patient no show to FOLLOW UP appointment on 06/12/24. documented in this encounter Plan of Treatment Upcoming Encounters Date Type Department Care Team (Late st Contact Info) Description 06/20/2024 10:00 AM EST Office Visit [facility] [address] [place] [address] Messi Mccollum MD [address] [place] [address] documented as of this encounter Goals Goal [...] documented as of this encounter Care Teams Respite Care Provider Relationship Specialty Start Date End Date Sammy Reilly MD [address] [place] [address] PCP - General Internal Medicine 12/23/13 [employer] 04/08/22 Tj Larose MD Forklift Technician Nephrology 04/10/24 documented as of this encounter
--- OUTSIDE RECORDS SUMMARY | 2024-06-16 17:43 | XMS_ITS | Encounter Summary ---
Author Organization [employer] Address [address] 7[address] [place] [address] Care Team Providers Care Application Chemist Name Role Phone Sammy Reilly MD Primary Care Provide r Encounter Details Date Type Department Care Team ([facility] st Contact Info) Description 06/11/2024 5:00 PM EST Office Visit [facility] 230 [place], [place] [phone] Nolberto Cates MD [address] [place], [place] [phone] Rectal prolapse (Primary Dx); Constipation, unspecified constipation type Social History Tobacco Use Types Packs/Day Years [...] AM EDT documented as of this encounter Last Filed Vital Signs Vital Sign Reading Time Taken Comments Blood Pressure 180/80 06/11/2024 4:44 PM EST no meds has head aches Pulse 80 06/11/2024 4:44 PM EST Temperature 36.7 ??C (98 ??F) 06/11/2024 4:4 4 PM EST Respiratory Rate 20 06/11/2024 4:44 PM EST Oxygen Saturation - - Inhaled Oxygen Concentration - - Weight 70.3 kg (155 lb) 06/11/2024 4:44 PM EST Height 149.9 cm (4' 11 ) 06/11/2024 4:4 4 PM EST Body Mass Index 31.31 06/11/2024 4:44 PM EST documented in this encounter Progress Notes * Nolberto Cates MD - 06/11/2024 5:00 PM EST Subjective History was provided by the patient and SCHOOL DIRECTOR. Cruz Muller is a 69 y.o. female who presents for evaluation of a rectal prolapse. States she had felt a painful mass in her perineal area for several months. Reports BRBPR. Patient with underlying ESRD on HD (T/T/S), COPD/asthma, HTN, CHF, OA, T2 DM (A1c 7.0 in 02/2024), and opioid dependence. Currently scheduled to see Dr. Edmundo Luis (General Surgery) on 06/27/2024, but hoping for a sooner appointment. She had been seeing Dr. Luis previously for this concern. She was originally offered an appointment with Dr. Luis on 06/12/2024, but had a conflict with another appointment. Reports her last BM was 4 days ago. Taking Colace and Senna, but ran out of powder medication. Denies current SOB or abdominal pain. Back on her routine 3x/week HD. It appears she was planned for a second-opinion consultation for rectal prolapse at [facility] on 05/22/2024, but it was not done for unclear reason. [facility] hospital discharge summary reports having rectal prolapse surgery at [facility], but patient denies (no records found in the [facility] system). [facility] ER (05/27/2024): Seen for rectal pain and constipation. Due to missing her dialysis, she wasthought to be volume overloaded. Work up included negative Influenza A/B, RSV, and COVID. WBC was within normal. BUN/Cr 56/7.5, K+ 5.8, and Lactate 1.1. CT A/P with IV contrast showed rectal wall thickening with adjacent stranding, consistent with proctitis. No bowel obstruction. Urgent dialysis was arranged for the next morning. Discharged home with Rx for Miralax. [facility] Admission (05/29 - 06/04/2024): Presented to ER with altered MS and SOB. Found to have hyperkalemia 6.6, HTN, pulmonary edema needing BiPAP support. Undergone emergent dialysis. Also found to have acute pancreatitis with elevated lipase (trended down during hospital stay). Had GI, Nephrology, and Psychiatry consultations while inpatient. Objective Vitals: 06/11/24 1644 BP: (!) 180/80 BP Location: Left arm Patient Position: Sitting BP Cuff Size: Adult Pulse: 80 Resp: 20 Temp: 98 ??F (36.7 ??C) TempSrc: Oral Weight: 155 lb (70.3 kg) Height: 4' 11 (1.499 m) Physical Exam Constitutional: General: She is not in acute distress. Appearance: Normal appearance. She is not ill-appearing, toxic-appearing or diaphoretic. HENT: Mouth/Throat: Pharynx: Oropharynx is clear. Eyes: Conjunctiva/sclera: Conjunctivae normal. Pulmonary: Effort: Pulmonary effort is normal. Genitourinary: Comments: Prolapsed rectum (6cm x 6cm x3cm). Musculoskeletal: Cervical back: Neck supple. Right lower leg: No edema. Left lower leg: No edema. Skin: General: Skin is warm and dry. Neurological: Mental Status: She is alert. Diagnoses and all orders for this visit: Rectal prolapse (Primary) Constipation, unspecified constipation type - lactulose (Chronulac) 10 GM/15ML solution; TAKE 15 ML BY MOUTH EVERY DAY PRN for CONSTIPATION Patient presents to [facility] due to recurring prolapsed rectum Multiple evaluations in the past Has an upcoming appointment with General Surgery (Dr. Luis), but in 2 weeks Complicated medical history, including ESRD on HD (T/T/S) Rx Lactulose prn for constipation Donut linwood recommended Encouraged to contact Dr. Luis's office in AM to see if sooner appointment can be made (SCHOOL DIRECTOR reports she will either bring there patient herself there or inform visiting nurse to coordinate care) Indications for UC/ER use reviewed Advised to contact the clinic if any worsening or persistent symptoms documented in this encounter Plan of Treatment Upcoming Encounters Date Type Department Care Team (Late st Contact Info) Description 06/20/2024 10:00 AM EST Office Visit [facility] [address] [place] [phone] Messi Mccollum MD [address] [place] [address] documented as of this encounter Goals Goal Patient Goal Type Associated Problems Recent Progress Patient-Stated? Author Check and record your blood sugars as directed Blood Pressure No Jimbo Burris PharmD Short-term: Promote adherence to treatment regimen General No Jimbo Burris PharmJonathan Take your medication every day Lifestyle No Jimbo Burris PharmD documented as of this encounter Visit Diagnoses Diagnosis Rectal prolapse- Primary Constipation, unspecified constipation type documented in this encounter Additional Health Concerns Assessment Noted Time PHQ-9 Depression Total Score: 11 10/17/ 024 9:25 AM EDT documented as of this encounter Care Teams Application Chemist Relationship Specialty Start Date End Date Strickland Ventura, Sammy, MD [address] [place] [address] PCP - General Internal Medicine 12/23/13 [employer] 04/08/22 Tj Larose MD Aeronautical Engineering Technologist Nephrology 04/10/24 documented as of this encounter
--- OUTSIDE RECORDS SUMMARY | 2024-06-16 17:43 | XMS_ITS | Encounter Summary ---
Author Organization [employer] Address [address] [place] [address] Care Team Providers Care Tie Man Name Role Phone Sammy Reilly MD Primary Care Provide r Reason for Visit * Reason Onset Date Comments FYI 06/05/2024 Encounter Details Date Type Department Care Team ([facility] Contact Info) Description 06/05/[address] [facility] [address] [place], [place] [phone] Sammy Reilly MD 230 [place], [place] [phone] FYI Social History Tobacco Use Types Packs/Day Years [...] the past 12 months, has t he [employer], gas, oil or water [employer] threatened to shut off services in your [...] Telephone Encounter - Kinza Escamilla RN - 06/06/2024 9:12 AM EST Noted. * Telephone Encounter - Mario Gordon - 06/05/2024 4:45 PM EST Tc from Jessie with [employer] wanted to report pt recently got discharged from hospital and will be resuming long-term services 2x a day Jessie # [phone] documented in this encounter Plan of Treatment Upcoming Encounters Date Type Department Care Team (Late st Contact Info) Description 06/20/2024 10:00 AM EST Office Visit [facility] [address] [place] [address] Messi Mccollum MD [address] [place], [place] [phone] documented as of this encounter Goals Goal [...] documented as of this encounter Care Teams Tie Man Relationship Specialty Start Date End Date Sammy Reilly MD [address] [place] [phone] PCP - General Internal Medicine 12/23/13 [employer] 04/08/22 Tj Larose MD Machine Buffer Nephrology 04/10/24 documented as of this encounter
== END 2024-06-16 13:45 | disposition home or self-care (01) ==
PROVIDERS: PCP Internal Medicine; Visit Provider Surgery
DX: K62.3 Rectal prolapse (principal)
CPT/HCPCS: 99213

== ENCOUNTER → 2024-06-16 13:04 | Outpatient (BNVA) | payer OTHER, SELFPAY | PROVIDERS: PCP Internal Medicine; Visit Provider Surgery | DX: K64.9 Unspecified hemorrhoids (principal); K62.3 Rectal prolapse | CPT/HCPCS: 99212 ==

== ENCOUNTER 2024-07-21 13:23 | Observation (INO) | payer OTHER, SELFPAY ==
--- NOTE | ~2024-07-21 | CT_ITS ---
EXAMINATION: CT HEAD WITHOUT CONTRAST CLINICAL INFORMATION: Hyperdense headache. COMPARISON: CT brain 12/04/2021 TECHNIQUE: Contiguous axial imaging was performed from the skull base to vertex without intravenous administration of contrast. This CT examination was performed using dose optimization techniques as appropriate, variously including the following: *Automated exposure control *Adjustment of mA and/or kV according to patient size (this includes techniques or standardized protocols for targeted exams where dose is matched to indication/reason for exam; i.e. extremities or head) *Use of iterative reconstruction technique DLP: 698 mGycm. FINDINGS: There is no acute intra-axial, extra-axial bleed, masses or midline shift. There is no acute infarction evolution. There is no edema. The lateral ventricles are enlarged but symmetrical. The galindo to white matter differentiation is maintained normal. Bone windows reveal no calvarial abnormality. There is no scalp soft tissue abnormality. Bilateral paranasal sinuses and mastoid air cells are well-aerated. CT/CT head/brain wo IV con IMPRESSION: No acute intracranial process seen. Electronically signed by: Orlando Dozier MD 07/21/2024 04:08 PM [facility]
--- NOTE | ~2024-07-21 | CT_ITS ---
CLINICAL HISTORY: constipated, abd bloating CT of the abdomen and pelvis without intravenous contrast. Comparison 05/30/2024. Findings: The liver is unremarkable. Cholecystectomy. There is no hydronephrosis. Bilateral renal atrophy is present. Left renal hypodensities are presumably cysts. 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 Mild thickening left adrenal is likely hyperplasia. There is mild pancreatic atrophy. No abdominal aortic aneurysm. There is no evidence of acute appendicitis. No bowel obstruction. No definite diverticulitis is seen. There is prominent stool in the colon. There are areas of mild colonic wall thickening raising the possibility of mild colitis. The bladder is nondilated. There is rectal wall thickening with mild adjacent edema consistent with proctitis. Impression: Findings of proctitis. Possible mild colitis. Additional findings as above. This document has been electronically signed by: Yogi Albarado MD on 07/21/2024 18:00:21
--- NOTE | ~2024-07-21 | XR_ITS ---
CLINICAL HISTORY: sob Two views of the chest. Comparison 05/21/2024. Findings: Body habitus limits the study. The heart is enlarged. A right central line is in place. No focal consolidation or pleural effusion is seen. Impression: No focal consolidation is seen. There is mild pulmonary vascular congestion without definitive pulmonary edema. If symptoms persist consider follow-up to exclude the possibility of early CHF. This document has been electronically signed by: Yogi Albarado MD on 07/21/2024 18:02:37
--- NOTE | 2024-07-21 13:53 | ED_ITS ---
HPI - General Adult General Chief complaint: Recheck/Abnormal Lab/Rx Stated complaint: Hypertensive Time Seen by Provider: 07/21/24 13:50 Source: patient, EMS, RN notes reviewed and old records reviewed Mode of arrival: EMS Limitations: no limitations History of Present Illness ED Provider: LAYLA LEVIN PA-C HPI narrative: 69 year old female with pmhx significant for ESRD on maintenance hemodialysis T// with poor compliance, hypertension, diabetes mellitus, asthma/COPD, pulmonary hypertension, hypertrophic cardiomyopathy, opioid dependence on buprenorphine, GERD, chronic back pain presents to the ED today via EMS for evaluation of elevated blood pressure reads. She states her CULTURAL ANTHROPOLOGY PROFESSOR took a routine blood pressure today and her BP was noted to be 220s/100s. She reports headache that has been constant since last night. She states she was last dialyzed on (5 days ago) and missed her dialysis session on Sunday. She is due for dialysis tomorrow. She reports compliance with her home medications. Denies vision changes, dizziness, chest pain, palpitations, SOB. Related Data Home Medications ?Medication ?Instructions ?Recorded ?Confirmed melatonin 5 mg tablet 5 mg PO BEDTIME PRN Sleep 04/15/21 07/21/24 pantoprazole 40 mg tablet,delayed 40 mg PO DAILY@0630 04/15/21 07/21/24 release aspirin 81 mg tablet,delayed 1 tab PO DAILY 10/11/21 07/21/24 release albuterol sulfate 90 mcg/actuation 2 puff inhalation Q4H PRN wheezing 01/31/22 07/21/24 aerosol inhaler (Ventolin HFA) albuterol sulfate 2.5 mg/3 mL 1 amp inhalation Q6H PRN Shortness 05/08/22 07/21/24 (0.083 %) solution for nebulization Of Breath isosorbide dinitrate 30 mg tablet 30 mg PO TID 07/10/22 07/21/24 calcium acetate(phosphat bind) 667 1,334 mg PO TIDWM 03/13/23 07/21/24 mg capsule lactulose 10 gram/15 mL oral 10 g PO DAILY PRN constipation 03/13/23 07/21/24 solution mirtazapine 15 mg tablet 15 mg PO BEDTIME 03/13/23 07/21/24 acetaminophen 500 mg tablet 500 mg PO TID PRN Pain 10/16/23 07/21/24 carvedilol 25 mg tablet 25 mg PO BID 01/28/24 07/21/24 amlodipine 10 mg tablet 10 mg PO DAILY 04/19/24 07/21/24 buprenorphine 12 mg-naloxone 3 mg 1 film sublingual DAILY 04/19/24 07/21/24 sublingual film glucose 4 gram chewable tablet 16 g PO Q15M PRN hypoglycemia 04/19/24 07/21/24 sodium zirconium cyclosilicate 10 10 g PO MOWEFR@0900 04/19/24 07/21/24 gram oral powder packet ([facility]) vitamin B comp no.3-folic acid 1 1 tab PO DAILY 04/19/24 07/21/24 mg-vit C 60 mg-biotin 300 mcg tablet ([facility]) clonidine HCl 0.1 mg tablet 0.1 mg PO TID 07/21/24 07/21/24 diclofenac sodium 1 % topical gel 2 g topical BID 07/21/24 07/21/24 ondansetron HCl 4 mg tablet 4 mg PO Q12H PRN nausea/vomiting 07/21/24 07/21/24 trazodone 100 mg tablet 100 mg PO BEDTIME PRN insomnia 07/21/24 07/21/24 acetaminophen 500 mg tablet 500 mg PO Q8H PRN pain 07/22/24 07/22/24 docusate sodium 100 mg capsule 100 mg PO BID 07/22/24 07/22/24 (Colace) Previous Rx's ?Medication ?Instructions ?Recorded hydralazine 50 mg tablet 50 mg PO TID #270 tabs 04/24/24 Allergies Allergy/AdvReac Type Severity Reaction Status Date / Time No Known Allergies Allergy Verified 07/21/24 14:05 Review of Systems 2 Review of Systems: Constitutional: No fever, chills, fatigue, night sweats, weight changes ENT/Mouth: No ear pain, hearing loss, nasal congestion, sinus pain, rhinorrhea, sore throat Eyes: No eye pain, swelling, redness, vision changes, discharge Cardio: No chest pain, palpitations, SEAMAN, orthopnea, peripheral edema Pulm: No SOB, cough, sputum, wheezing, dyspnea, hemoptysis GI: No nausea, vomiting, hematemesis, abdominal pain, diarrhea, constipation, hematochezia, melena : No irregular bleeding, dysuria, frequency, urgency, hesitancy, hematuria, flank pain, urinary flow changes, urinary incontinence or retention MSK: No back pain, neck pain, joint pain, myalgias Skin: No lesions, rashes Neuro: No weakness, numbness, paresthesias, LOC, dizziness, +headache Psych: No anxiety/panic, depression, SI/HI, AH/VH All other systems reviewed and are negative. [facility] Past Medical History Attestation statement: The following information was validated with the patient. Source: old records reviewed and nursing notes reviewed Medical History Chronic renal failure Essential hypertension ESRD (end stage renal disease) on dialysis Diabetes mellitus Hemorrhoids that prolapse with straining, but retract spontaneously Hemorrhoids with complication ESRD on dialysis Delirium Sepsis Tachycardia Leukocytosis Fever End stage chronic kidney disease Congestive heart failure with left ventricular dysfunction ESRD (end stage renal disease) Hypertension Pulmonary congestion COVID-19 virus infection Asthma with COPD with exacerbation COVID ESRD (end stage renal disease) Hypertrophic cardiomyopathy Acute exacerbation of chronic obstructive pulmonary disease (COPD) Heart failure with preserved ejection fraction Constipation End stage renal disease on dialysis Ascites Anasarca Ischemic colitis Acute GI bleeding Anemia Dialysis patient, noncompliant Anemia in chronic kidney disease Opioid withdrawal Essential hypertension Surgical History No pertinent past surgical history Family History Family History Other Hypertension Social History Social History Household Members: Family Housing: Apartment Do you presently have visiting nurse or other home services: Yes (vna) Unable to assess alcohol history related to: Unknown Alcohol intake: former Comment: pt in dialysis at this time. Patient Tobacco Use Status: Current everyday Tobacco user Tobacco use type: Cigarette Cigarette Packs Per Day: 2 Cigarettes Per Day: 1 Years Smoked: 50 +/- e-Cigarette/Vaping Use: Never Used Second Hand Smoke Exposure: No Substance Use Type: Marijuana Advance Directives Date on File: 04/19/23 service: No Current occupational status: disabled Physical Exam ED Vital Signs: Vital Signs - 24 hr 07/21/24 14:02 07/21/24 14:07 07/21/24 15:52 Temperature 98.8 F Pulse Rate 78 Respiratory Rate 16 16 Blood Pressure 194/81 H 206/93 H Pulse Oximetry 100 100 Oxygen Delivery Method Room Air Room Air 07/21/24 15:53 07/21/24 17:24 Temperature Pulse Rate 80 78 Respiratory Rate 18 18 Blood Pressure 206/93 H 202/93 H Pulse Oximetry 96 100 Oxygen Delivery Method Room Air Room Air BMI result Body Mass Index 28.0 hypertensive, vitals are otherwise wnl General: chronically ill appearing Skin: Warm, dry, intact. No rashes or lesions. Head: Normocephalic, atraumatic. EENT: Hearing is intact b/l. Conjunctiva clear. PERRLA. EOM intact. Moist mucous membranes.? Neck: Supple without LAD Cardiac: Chest wall symmetric. RRR. Lungs: Normal respiratory effort without accessory muscle use. CTA bilaterally Abdomen: soft, mildly distended, NT, no rebound or guarding. active bs x4. Back: No midline spinous or paraspinal tenderness. No step off deformity. Ext: Upper and lower extremities atraumatic, without tenderness, deformity, swelling or erythema. Neuro: AOx3. Normal speech. Course Course Course Narrative: 1631 -- CBC without leukocytosis. Macrocytic anemia, H&H around baseline and above transfusion threshold. No acute electrolyte abnormality requiring intervention. BUN elevated at 31. Creatinine elevated to 6.39. Liver function around baseline. Troponin 51.4, which appears to be around her baseline. Her BNP is elevated to 3461. CT head/brain without hemorrhage. > BP likely elevated secondary to fluid overload. She was treated with a dose of her home amlodipine. She is alert and oriented with normal CT head. I do not feel as though nicardipine is warranted at this time. She needs to be dialyzed. I reached out to on-call pump house operator Dr. Sanders who is agreeable. > she also tells me she feels bloated and constipated. has not had a BM in 4 days. her abdomen is mildly distended, TTP. she is passing flatus in room. she is not nauseous or vomiting. will add on ct a/p to assess for intra-abdominal pathology. 171 -- Spoke with Dr. Hyman from [facility] nephrology. Recommending admission to medicine with plan for dialysis tomorrow morning. will reach out to hospitalist. Medications Administered Generic Name Dose Route Start Last Admin Trade Name Freq PRN Reason Stop Dose Admin Heparin Sodium (Porcine) 5,000 unit 07/21/24 22:15 07/22/24 00:18 Heparin Sodium,Porcine 5,000 Unit/Ml Vial SUBCUT 5,000 unit Q12H PHAN Administration Discontinued Medications Generic Name Dose Route Start Last Admin Trade Name Freq PRN Reason Stop Dose Admin Amlodipine Besylate 10 mg 07/21/24 15:29 07/21/24 15:52 Amlodipine Besylate 10 Mg Tablet PO 07/21/24 15:30 10 mg ONCE ONE Administration Protocol Carvedilol 25 mg 07/21/24 20:38 07/22/24 00:32 Carvedilol 25 Mg Tablet PO 07/21/24 20:39 25 mg ONCE STA Administration Protocol Clonidine HCl 0.1 mg 07/21/24 20:39 07/22/24 00:32 Clonidine Hcl 0.1 Mg Tablet PO 07/21/24 20:40 0.1 mg ONCE STA Administration Protocol Hydralazine HCl 50 mg 07/21/24 20:39 07/22/24 00:18 Hydralazine Hcl 50 Mg Tablet PO 07/21/24 20:40 50 mg ONCE STA Administration Protocol Isosorbide Dinitrate 20 mg 07/21/24 20:39 07/22/24 00:33 Isosorbide Dinitrate 20 Mg Tablet PO 07/21/24 20:40 20 mg ONCE STA Administration Protocol Mirtazapine 15 mg 07/21/24 20:39 07/22/24 00:37 Mirtazapine 15 Mg Tablet PO 07/21/24 20:40 15 mg ONCE STA Administration Prochlorperazine Edisylate 10 mg 07/21/24 21:05 07/21/24 22:07 Prochlorperazine Edisylate 10 Mg/2 Ml Vial IVPUSH 07/21/24 21:06 10 mg ONCE STA Administration Medical Decision Making Medical Decision Making MDM Narrative: 69 year old female with pmhx significant for ESRD on maintenance hemodialysis T/TH/S with poor compliance, hypertension, diabetes mellitus, asthma/COPD, pulmonary hypertension, hypertrophic cardiomyopathy, opioid dependence on buprenorphine, GERD, chronic back pain presents to the ED today via EMS for evaluation of elevated blood pressure reads. hypertensive to 194/81 on arrival. she is chronically ill appearing. exam is nonfocal. Differential diagnosis includes anemia, electrolyte abnormality, fluid overload, CHF, hypertensive urgency vs emergency, ICH, tension [place] v migraine Plan for ekg, labs, imaging, re-evaluation. Differential Diagnosis Differential Diagnoses: The differential diagnosis associated with the presentation includes as above. Admission/Observation Consideration of admission/observation: Escalation of care including admission/observation considered Patient admitted to medicine Consult Healthcare Provider Management of the patient was discussed with: Hospitalist (dr. guerrero) and Tailer In (nephrology dr. hyman) Lab Data MDM Lab Attestation statement: I reviewed the patient's lab results. as above. 07/21/24 15:10 07/21/24 15:10 Labs: Lab Results 07/21/24 07/21/24 Range/Units 15:10 15:17 WBC 8.0 (4.8-10.8) X10*3/uL RBC 3.24 L (4.20-5.50) X10*6/uL Hgb 10.5 L (12.0-16.0) g/dl Hct 32.2 L (37.0-47.0) % MCV 99.4 H (80.0-98.0) fL MCH 32.4 (27.0-33.0) pg MCHC 32.6 (31.0-35.0) g/dl RDW 14.6 (11.0-16.0) % Plt Count 211 (160-400) X10*3/uL MPV 10.8 (9.4-12.3) fL Immature Gran % (Auto) 0.4 (0.0-0.4) % Neut % (Auto) 81.7 H (45-73) % Lymph % (Auto) 8.6 L (20-40) % Rabun % (Auto) 6.0 (2-11) % Eos % (Auto) 2.9 (0-4) % Baso % (Auto) 0.4 (0-2) % Lymph # (Auto) 0.7 L (1.2-4.9) X10*3/uL Rabun # (Auto) 0.5 (0.1-1.2) X10*3/uL Eos # (Auto) 0.2 (0.0-0.4) X10*3/uL Baso # (Auto) 0.0 (0.0-0.2) X10*3/uL Abs Immat Gran (auto) 0.03 (0.00-0.03) X10*3/uL Absolute Neuts (auto) 6.5 (2.0-8.3) x10*3/uL Absolute Nucleated RBC 0.000 (0.0-0.012) X10*3/uL Nucleated RBC % (auto) 0.0 (0.0-0.2) /100WBC PT 10.3 L (10.9-12.4) SEC INR 0.9 (0.9-1.1) Sodium 135 (135-145) mmol/L Potassium 4.4 (3.3-5.1) mmol/L Chloride 98 (96-108) mmol/L Carbon Dioxide 23 (22-29) mmol/L Anion Gap 18 (12-20) BUN 31 H (9-16) mg/dL Creatinine 6.39 H* (0.5-1.4) mg/dL Estim Creat Clear Calc 7.3 Estimated GFR 6 Random Glucose 105 (60-115) mg/dL Calcium 9.5 (8.4-10.2) mg/dL Magnesium 2.4 (1.6-2.6) mg/dL Total Bilirubin 0.4 (0.0-1.0) mg/dL AST 44 H (5-31) U/L ALT 12 (0-31) U/L Alkaline Phosphatase 136 H (39-117) U/L Troponin I High Sens 51.4 H* (<3.5-17.0) ng/L B-Natriuretic Peptide 3461 H (<100) pg/mL Total Protein 7.5 (6.5-8.0) g/dL Albumin 3.6 (3.5-5.0) g/dL Lipase 10 (8-78) U/L Influenza Type A (PCR) NEGATIVE (Negative) Influenza Type B (PCR) NEGATIVE (Negative) RSV RNA Qual (PCR) NEGATIVE (Negative) SARS-CoV-2 RNA (RT-PCR) NEGATIVE (Negative) Independent Interpretation I performed an independent interpretation of an: EKG, Plain X-Ray and CT Scan Interpretation: EKG showing normal sinus rhythm, rate of 75 beats per minute, no acute ischemic changes or ST elevation CXR without pleural effusion, no focal infiltrate/ consolidation CT head/ brain without bleed CT a/p without bowel obstruction Radiology Impression Discussion of test interpretation with radiology: I have reviewed the radiologist's reading. Radiologist Impression: Procedure(s): CT head/brain wo IV con Accession Number(s): [id number] cc: Physician,Unknown ; Layla Levin~ Report Number: [id number]: Total DLP = 698.00 mGy-cm EXAMINATION: CT HEAD WITHOUT CONTRAST CLINICAL INFORMATION: Hyperdense headache. COMPARISON: CT brain 12/04/2021 TECHNIQUE: Contiguous axial imaging was performed from the skull base to vertex without intravenous administration of contrast. This CT examination was performed using dose optimization techniques as appropriate, variously including the following: *Automated exposure control *Adjustment of mA and/or kV according to patient size (this includes techniques or standardized protocols for targeted exams where dose is matched to indication/reason for exam; i.e. extremities or head) *Use of iterative reconstruction technique DLP: 698 mGycm. FINDINGS: There is no acute intra-axial, extra-axial bleed, masses or midline shift. There is no acute infarction evolution. There is no edema. The lateral ventricles are enlarged but symmetrical. The galindo to white matter differentiation is maintained normal. Bone windows reveal no calvarial abnormality. There is no scalp soft tissue abnormality. Bilateral paranasal sinuses and mastoid air cells are well-aerated. CT/CT head/brain wo IV con IMPRESSION: No acute intracranial process seen. Electronically signed by: Orlando Dozier MD 07/21/2024 04:08 PM [facility] Date of Service: 07/21/24 Procedure(s): CT abdomen pelvis wo IV con Accession Number(s): [id number] cc: Physician,Unknown ; Layla Levin~ Report Number: [id number]: Total DLP = 442.00 mGy-cm CLINICAL HISTORY: constipated, abd bloating CT of the abdomen and pelvis without intravenous contrast. Comparison 05/30/2024. Findings: The liver is unremarkable. Cholecystectomy. There is no hydronephrosis. Bilateral renal atrophy is present. Left renal hypodensities are presumably cysts. 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 Mild thickening left adrenal is likely hyperplasia. There is mild pancreatic atrophy. No abdominal aortic aneurysm. There is no evidence of acute appendicitis. No bowel obstruction. No definite diverticulitis is seen. There is prominent stool in the colon. There are areas of mild colonic wall thickening raising the possibility of mild colitis. The bladder is nondilated. There is rectal wall thickening with mild adjacent edema consistent with proctitis. Impression: Findings of proctitis. Possible mild colitis. Additional findings as above. This document has been electronically signed by: Yogi Albarado MD on 07/21/2024 18:00:21 Date of Service: 07/21/24 Procedure(s): XR chest 2V Accession Number(s): [id number] cc: Physician,Unknown ; Layla Levin~ CLINICAL HISTORY: sob Two views of the chest. Comparison 05/21/2024. Findings: Body habitus limits the study. The heart is enlarged. A right central line is in place. No focal consolidation or pleural effusion is seen. Impression: No focal consolidation is seen. There is mild pulmonary vascular congestion without definitive pulmonary edema. If symptoms persist consider follow-up to exclude the possibility of early CHF. This document has been electronically signed by: Yogi Albarado MD on 07/21/2024 18:02:37 Independent Historian Clinical information obtained from an independent historian. History obtained from or confirmed by: EMS External Record Review External record reviewed: Inpatient record, Office record, Outpatient record, Prior outpatient labs, Prior outpatient radiology, Primary care record and Outside ED record Chronic Conditions Patient?s care impacted by: Other (CKD) Social Determinants Patient?s care significantly limited by Social Determinants of Health including: Other Social Determinant of Health Critical Care Time Critical Care Time Critical Care Time: Yes Total Critical Care Time: 31 Attestation: Critical care time in the amount of 31 minutes has been provided to the patient in terms of direct patient care, frequent reevaluation, consultation with nephrology/ hospitalist, review and interpretation of medical data and results, and management of potentially life-threatening conditions. This is all outside of any medical procedures. Discharge Plan Discharge Clinical Impression: Acute kidney injury superimposed on chronic kidney disease, Hypertensive urgency Patient Disposition: Left Against Medical Advice Interventions: ED Discharge Assessment Last Done: 07/22/24 01:01 Discharge Date/Time: 07/22/24 01:22
[2024-07-21 14:02] VITALS: BP 194/81; BP 260/120; PULSE 72; PULSE 78; RESP 16; TEMP 37.1; O2SAT 100; O2SAT 99; BMI 28.0
[2024-07-21 14:07] VITALS: RESP 16; O2SAT 100
--- NOTE | 2024-07-21 14:10 | PC.NURSE ---
Dialysis pt with right chest permacath. Pt states dialysis tomorrow. Awaits ED provider
--- NOTE | 2024-07-21 14:40 | ECG_ITS ---
Test Reason : HYPERTENSION Blood Pressure : */* mmHG Vent. Rate : 75 BPM Atrial Rate : 75 BPM P-R Int : 184 ms QRS Dur : 90 ms QT Int : 416 ms P-R-T Axes : 63 -15 80 degrees QTcB Int : 464 ms Normal sinus rhythm Possible Left atrial enlargement Minimal voltage criteria for LVH, may be normal variant ( Sigurd product ) Cannot rule out Anterior infarct , age undetermined Abnormal ECG When compared with ECG of 29-May-2024 11:10, [place] interval has decreased Nonspecific T wave abnormality now evident in Lateral leads Referred By: Layla Levin Electronically Signed By: CRISTIAN REMY MD
[2024-07-21 15:14] LABS: MANUAL DIFF FLAG NO
[2024-07-21 15:18] LABS: Basophils Percent Auto 0.4 % (0-2); Mean Corpuscular HGB Conc 32.6 g/dl (31.0-35.0); Mean Corpuscular Hemoglobin 32.4 pg (27.0-33.0); Mean Corpuscular Volume 99.4 fL (80.0-98.0); PLT CLUMP 1; Red Cell Distribution Width 14.6 % (11.0-16.0); SCAN SMEAR FLAG 1
[2024-07-21 15:20] LABS: Eosinophils Absolute Auto 0.2 X10*3/uL (0.0-0.4); Eosinophils Percent Auto 2.9 % (0-4); Hematocrit 32.2 % (37.0-47.0); Hemoglobin 10.5 g/dl (12.0-16.0); Imm Gran Abs Auto 0.03 X10*3/uL (0.00-0.03); Imm Gran Pct Auto 0.4 % (0.0-0.4); Lymphocytes Absolute Auto 0.7 X10*3/uL (1.2-4.9); Lymphocytes Percent Auto 8.6 % (20-40); Monocytes Absolute Auto 0.5 X10*3/uL (0.1-1.2); Neutrophils Absolute Auto 6.5 x10*3/uL (2.0-8.3); Neutrophils Percent Auto 81.7 % (45-73); Red Blood Count 3.24 X10*6/uL (4.20-5.50)
[2024-07-21 15:36] LABS: INTERNATIONAL NORM RATIO 0.9 (0.9-1.1); Prothrombin Time 10.3 SEC (10.9-12.4)
[2024-07-21 15:44] LABS: Troponin-I High Sensitivity 51.4 ng/L (<3.5-17.0)
[2024-07-21 15:45] LABS: Alanine Aminotransferase 12 U/L (0-31); Albumin Level 3.6 g/dL (3.5-5.0); Anion Gap 18 (12-20); Aspartate Amino Transferase 44 U/L (5-31); Bilirubin Total 0.4 mg/dL (0.0-1.0); Blood Urea Nitrogen 31 mg/dL (9-16); Calcium 9.5 mg/dL (8.4-10.2); Carbon Dioxide 23 mmol/L (22-29); Chloride 98 mmol/L (96-108); Creatinine Clr Calc Pharmacy 7.3; Estimated Glomerular Filt Rate 6; Glucose Random 105 mg/dL (60-115); Lipase 10 U/L (8-78); Magnesium 2.4 mg/dL (1.6-2.6); Potassium 4.4 mmol/L (3.3-5.1); Sodium 135 mmol/L (135-145); Total Protein 7.5 g/dL (6.5-8.0)
[2024-07-21 15:49] LABS: Mean Platelet Volume 10.8 fL (9.4-12.3); Platelet Count 211 X10*3/uL (160-400)
[2024-07-21 15:52] VITALS: BP 206/93
[2024-07-21] MEDS: amLODIPine Besylate 10 MG TABLET PO (15:52)
[2024-07-21 15:53] VITALS: BP 206/93; PULSE 80; RESP 18; O2SAT 96
[2024-07-21 15:57] LABS: Influenza A PCR NEGATIVE (Negative); Influenza B PCR NEGATIVE (Negative); Resp Syncy Virus RNA Qual PCR NEGATIVE (Negative); SARS COV2 PCR INHOUSE NEGATIVE (Negative)
[2024-07-21 16:06] LABS: B Type Natriuretic Peptide 3461 pg/mL (<100)
[2024-07-21 16:24] LABS: Alkaline Phosphatase 136 U/L (39-117)
--- OUTSIDE RECORDS SUMMARY | 2024-07-21 16:58 | XMS_ITS | Encounter Summary ---
Author Organization [employer] Address [address] [place] [address] Care Team Providers Care Supervisor Mending Name Role Phone Sammy Reilly MD Primary Care Provide r Reason for Visit * Reason Comments Med Refill Encounter Details Date Type Department Care Team ([facility] st Contact Info) Description 05/02/2023 Refill [facility] [address] [place] [address] Messi Mccollum MD [address] [place] [phone] Uncomplicated opioid dependence (CMS/HCC) Social History Tobacco [...] Care Team (Late st Contact Info) Description 08/08/2024 1:00 PM EDT Office Visit [facility] [address] [place] [phone] Messi Mccollum MD [address] [place] [phone] 10/14/2024 2:15 PM EDT Telemedicine [facility] [address] [place] [phone] Sammy Reilly MD [address] [place] [address] [phone] documented as of this encounter Goals Goal [...] documented as of this encounter Care Teams Supervisor Mending Relationship Specialty Start Date End Date Sammy Reilly MD [address] [place] [phone] PCP - General Internal Medicine 12/23/13 [employer] 04/08/22 Tj Larose MD Auto Leasing Manager Nephrology 04/10/24 documented as of this encounter
--- OUTSIDE RECORDS SUMMARY | 2024-07-21 16:58 | XMS_ITS | Encounter Summary ---
Author Organization [employer] Address [address] [place] [address] Care Team Providers Care Mixed Crop And Livestock Farmer Name Role Phone Sammy Reilly MD Primary Care Provide r Reason for Visit * Reason Comments Med Refill Encounter Details Date Type Department Care Team ([facility] st Contact Info) Description 04/25/2023 Refill [facility] [address] [place], [place] [phone] Name, MD Tye [address] [place] [address] Hypertension secondary to other renal disorders; Primary [...] Description 08/08/2024 1:00 PM EDT Office Visit [facility] [address] [place] [phone] Messi Mccollum MD [address] [place] [address] [phone] 10/14/2024 2:15 PM EDT Telemedicine [facility] [address] [place] [phone] Sammy Reilly MD [address] [place] [address] [phone] documented as of this encounter Goals Goal [...] documented as of this encounter Care Teams Mixed Crop And Livestock Farmer Relationship Specialty Start Date End Date Sammy Reilly MD [address] [place] [address] [phone] PCP - General Internal Medicine 12/23/13 [employer] 04/08/22 Tj Larose MD Mitochondrial Disorders Counselor Nephrology 04/10/24 documented as of this encounter
--- OUTSIDE RECORDS SUMMARY | 2024-07-21 16:58 | XMS_ITS | Encounter Summary ---
Author Organization [employer] Address [address] [place] [address] Care Team Providers Care Electronics Research Engineer Name Role Phone Sammy Reilly MD Primary Care Provide r Reason for Visit * Reason Onset Date Comments DME L&C 07/14/2024 Encounter Details Date Type Department Care Team ([facility] st Contact Info) Description 07/14/2024 Telephone [facility] [address] [place] [address] aSmmy Reilly MD [address] [place] [address] DME L&C Social History Tobacco Use Types Packs/Day Years Used Date Smoking Tobacco: Some Days Cigarettes 0.3 1.2 Started: 2023 Passive Smoke Exposure: Current Smokeless [...] Recorded Patient Health Questionnaire-2 Score 3 10/18/2023 Internet Access Answer Date Recorded Internet Access Q1 No 07/15/2024 Internet Access Q2 Not on file 07/15/2024 Comments No Sex and Gender Information Value Date Recorded Sex Assigned at Female 03/20/2022 10:15 AM EDT Legal Sex Female 10:15 AM EDT Gender Identity Female 03/20/2022 10:15 AM EDT Sexual Orientation Straight 03/20/2022 10 :15 AM EDT documented as of this encounter Miscellaneous Notes * Telephone Encounter - Aracely Christensen MA - 07/14/2024 2:04 PM EST Received confirmation for wipes and bed pads, sent to to scan. LB documented in this encounter Plan of Treatment Upcoming Encounters Date Type Department Care Team (Late st Contact Info) Description 08/08/2024 1:00 PM EDT Office Visit [facility] [address] [place] [phone] Messi Mccollum MD [address] [place] [phone] 10/14/2024 2:15 PM EDT Telemedicine [facility] [address] [place] [phone] Sammy Reilly MD [address] [place] [phone] documented as of this encounter Goals Goal [...] documented as of this encounter Care Teams Electronics Research Engineer Relationship Specialty Start Date End Date Sammy Reilly MD [address] [place] [phone] PCP - General Internal Medicine 12/23/13 [employer] 04/08/22 Tj Larose MD Foaming Machine Operator Nephrology 04/10/24 documented as of this encounter
--- OUTSIDE RECORDS SUMMARY | 2024-07-21 16:58 | XMS_ITS | Encounter Summary ---
Author Organization [employer] Address [address] [facility] 7t [place] [address] Care Team Providers Care Commercial Retoucher Name Role Phone Sammy Reilly MD Primary Care Provide r Encounter Details Date Type Department Care Team (Latest Contact Info) Description 07/11/2024 Travel Social History Tobacco Use Types Packs/Day Years [...] Description 08/08/2024 1:00 PM EDT Office Visit [facility] MEDICINE [address] [place] [address] [phone] Messi Mccollum MD [address] [place] [address] [phone] 10/14/2024 2:15 PM EDT Telemedicine [facility] [address] [place] [address] [phone] Sammy Reilly MD [address] [place] [address] [phone] documented as of this encounter Goals Goal [...] documented as of this encounter Care Teams Commercial Retoucher Relationship Specialty Start Date End Date Sammy Reilly MD [address] [place] [address] [phone] PCP - General Internal Medicine 12/23/13 [employer] 04/08/22 Tj Larose MD Physician Office Specialist Nephrology 04/10/24 documented as of this encounter
--- OUTSIDE RECORDS SUMMARY | 2024-07-21 16:58 | XMS_ITS | Encounter Summary ---
Author Organization [employer] Address [address] [facility] [address] 7t [place] [address] Care Team Providers Care Editorial Intern Name Role Phone Sammy Reilly MD Primary Care Provide r Reason for Visit * Reason Comments Med Refill Encounter Details Date Type Department Care Team ([facility] st Contact Info) Description 04/25/2023 Refill [facility] [address] [place] [address] Messi Mccollum MD 230 [place] [address] Uncomplicated opioid dependence (CMS/HCC) Social History Tobacco [...] Description 08/08/2024 1:00 PM EDT Office Visit [facility] [address] [place] [address] [phone] Messi Mccollum MD [address] [place] [address] [phone] 10/14/2024 2:15 PM EDT Telemedicine [facility] [address] [place] [address] [phone] Sammy Reilly MD [address] [place] [address] [phone] documented as of this encounter Goals Goal Patient Goal Type Associated Problems Recent Progress Patient-Stated? Author Check and record your blood sugars as directed Blood Pressure No Jimbo Burris PharmJonathan Short-term: Promote adherence to treatment regimen General No Jimbo Bruris PharmD Take your medication every day Lifestyle No Jimbo Burris PharmD documented as of this encounter Visit Diagnoses Diagnosis Uncomplicated opioid dependence (CMS/HCC) documented in this encounter Additional Health Concerns Assessment Noted Time PHQ-9 Depression Total Score: 11 023 9:59 AM EDT documented as of this encounter Care Teams Editorial Intern Relationship Specialty Start Date End Date Sammy Reilly MD [address] [place] [address] [phone] PCP - General Internal Medicine 12/23/13 [employer] 04/08/22 Tj Larose MD Volunteer Firefighter Nephrology 04/10/24 documented as of this encounter
--- OUTSIDE RECORDS SUMMARY | 2024-07-21 16:58 | XMS_ITS | Encounter Summary ---
Author Organization [employer] Address [address] [facility] [address] 7[address] [place] [address] Care Team Providers Care Fitness Assistant Name Role Phone Sammy Reilly MD Primary Care Provide r Encounter Details Date Type Department Care Team (Latest Contact Info) Description 07/15/2024 Travel Social History Tobacco Use Types Packs/Day [...] Description 08/08/2024 1:00 PM EDT Office Visit [facility] MEDICINE [address] [place] [phone] Messi Mccollum MD [address] [place] [phone] 10/14/2024 2:15 PM EDT Telemedicine [address] [address] Sammy Reilly MD [address] [place] [address] [phone] documented as of this encounter Goals Goal [...] documented as of this encounter Care Teams Fitness Assistant Relationship Specialty Start Date End Date Sammy Reilly MD [address] [place] [address] PCP - General Internal Medicine 12/23/13 [employer] 04/08/22 Tj Larose MD Certified Alcohol Drug Counselor Nephrology 04/10/24 documented as of this encounter
--- OUTSIDE RECORDS SUMMARY | 2024-07-21 16:58 | XMS_ITS | Encounter Summary ---
Author Organization [employer] Address [address] [facility] 7t [place] [address] Care Team Providers Care Checkout Operator Name Role Phone Sammy Reilly MD Primary Care Provide r Reason for Visit * Reason Onset Date Comments Chart Prep Tele 07/11/2024 Encounter Details Date Type Department Care Team ([facility] Contact Info) Description 07/11/2024 Telephone [facility] [address] [place] [address] Sammy Reilly MD [address] [place] [address] Chart Prep Tele Social History Tobacco Use Types Packs/Day Years [...] Telephone Encounter - Aracely Christensen MA - 07/11/2024 3:31 PM EST Chart Prep Tele Labs: not applicable Images: not applicable Vaccines due: Covid Due, Hep A Due, Hep B Due, RSV in Pharmacy Due, and Shingles in pharmacy Due Referrals: General Surgery Requested notes by Fax. Waiting for notes. Screenings: Colonoscopy and Eye Exam Overdue care gaps: A1C, Glucose, SDOH, PHQ-9, and Oral Health Chart prep for upcoming appt with Dr.Esparza alicea. LB documented in this encounter Plan of Treatment Upcoming Encounters Date Type Department Care Team (Late st Contact Info) Description 08/08/2024 1:00 PM EDT Office Visit [facility] MEDICINE [address] [place], [place] [phone] Messi Mccollum MD [address] [place], [place] [phone] 10/14/2024 2:15 PM EDT Telemedicine [facility] MEDICINE [address] [place] [address] Sammy Reilly MD [address] [place] [address] documented as of this encounter Goals Goal [...] documented as of this encounter Care Teams Checkout Operator Relationship Specialty Start Date End Date Sammy Reilly MD [address] [place] [address] PCP - General Internal Medicine 12/23/13 [employer] 04/08/22 Tj Larose MD Steel Checker Nephrology 04/10/24 documented as of this encounter
--- OUTSIDE RECORDS SUMMARY | 2024-07-21 16:58 | XMS_ITS | Encounter Summary ---
Author Organization [employer] Address [address] [facility] [address] 7t [place] [address] Care Team Providers Care Certified Pesticide Applicator Name Role Phone Sammy Reilly MD Primary Care Provide r Reason for Visit * Reason Comments Med Refill Encounter Details Date Type Department Care Team ([facility] st Contact Info) Description 04/25/2023 Refill [facility] [address] [place] [address] Neptali Coles MD [address] [place] [address] Social History Tobacco Use Types Packs/Day Years [...] Description 08/08/2024 1:00 PM EDT Office Visit [facility] MEDICINE [address] [place] [phone] Messi Mccollum MD [address] [place] [phone] 10/14/2024 2:15 PM EDT Telemedicine [facility] MED[facility]INE [address] [place] [phone] Sammy Reilly MD [address] [place] [address] [phone] documented as of this encounter Goals Goal [...] documented as of this encounter Care Teams Certified Pesticide Applicator Relationship Specialty Start Date End Date Sammy Reilly MD [address] [place] [address] [phone] PCP - General Internal Medicine 12/23/13 [employer] 04/08/22 Tj Larose MD Sports Equipment Repairer Nephrology 04/10/24 documented as of this encounter
--- OUTSIDE RECORDS SUMMARY | 2024-07-21 16:58 | XMS_ITS | Encounter Summary ---
Author Organization [employer] Address [address] [facility] 7t [place] [address] Care Team Providers Care Tool And Die Maker Name Role Phone Sammy Reilly MD Primary Care Provide r Reason for Referral * Consultation (Routine) - Authorized Specialty Diagnoses / Procedures Referred By Naomi ortiz Referred To Contact Orthopaedic Surgery Diagnoses Chronic pain of both knees Sammy Reilly MD [address] [place] [address] Phone: tel: fax: [facility] Referral ID Status Reason Start Date Expiration Date Visits Requested Visits Authorized [id number] Authorized Specialty Services Required 07/15/2024 07/15/2025 1 1 Scheduling Instructions Please contact her CUTTING AND BONING SUPERVISOR Mary with all of her appointments/referrals, appointments should not be on her dyalisis days ([id number] ) * Consultation (Routine) - Authorized Specialty Diagnoses / Procedures Referred By Naomi ortiz Referred To Contact Podiatry Diagnoses Type 2 diabetes mellitus with chronic kidney disease on chronic dialysis, with long-term current use of insulin ([facility]) Sammy Reilly MD [address] [place] [address] Phone: tel: fax: Candido Hu DPM [address] [address] Phone: tel: fax: Referral ID Status Reason Start Date Expiration Date Visits Requested Visits Authorized [id number] Authorized Specialty Services Required 07/15/2024 07/15/2025 1 1 Scheduling Instructions Please contact her CUTTING AND BONING SUPERVISOR Mary with all of her appointments/referrals, appointments should not be on her dyalisis days ([id number] ) * Consultation (Routine) - Authorized Specialty Diagnoses / Procedures Referred By Naomi t Referred To Contact Urology Diagnoses Renal cyst, left Sammy Reilly MD [address] [place] [address] Phone: tel: fax: [facility] Referral ID Status Reason Start Date Expiration Date Visits Requested Visits Authorized [id number] Authorized Specialty Services Required 07/15/2024 07/15/2025 1 1 Scheduling Instructions Please contact her CUTTING AND BONING SUPERVISOR Mary with all of her appointments/referrals, appointments should not be on her dyalisis days ([id number] ) * Consultation (Routine) - Authorized Specialty Diagnoses / Procedures Referred By Naomi t Referred To Contact Gastroenterology Diagnoses Constipation, unspecified constipation type Sammy Reilly MD [address] [place] [address] Phone: tel: fax: [facility] Referral ID Status Reason Start Date Expiration Date Visits Requested Visits Authorized [id number] Authorized Specialty Services Required 07/15/2024 07/15/2025 1 1 Scheduling Instructions Please contact her CUTTING AND BONING SUPERVISOR Mary with all of her appointments/referrals, appointments should not be on her dyalisis days ([id number] ) * Consultation (Routine) - Authorized Specialty Diagnoses / Procedures Referred By Naomi ortiz Referred To Contact Cardiology Diagnoses Chronic diastolic congestive heart failure (CMS/HCC) Sammy Reilly MD [address] [place] [address] Phone: tel: fax: [facility] Referral ID Status Reason Start Date Expiration Date Visits Requested Visits Authorized [id number] Authorized Specialty Services Required 07/15/2024 07/15/2025 1 1 Encounter Details Date Type Department Care Team (Late st Contact Info) Description 07/15/2024 3:00 PM EST Telemedicine [facility] MED[facility]INE [address] [place] [address] Sammy Reilly MD [address] [place] [address] Rectal prolapse (Primary Dx); Hospital discharge follow-up; Renal artery aneurysm ([facility]/HCC); Chronic diastolic congestive heart failure ([facility]/HCC); Constipation, unspecified constipation type; Renal cyst, left; End-stage renal disease on hemodialysis ([facility]/HCC); Type 2 diabetes mellitus with chronic kidney disease on chronic dialysis, with long-term current use of insulin ([facility]); Chronic pain of both knees Social History Tobacco Use Types Packs/Day Years [...] AM EDT documented as of this encounter Progress Notes * Sammy Whitehead MD - 07/15/2024 3:00 PM EST ELSIE Muller is a 69 y.o. female who presents for No chief complaint on file.. Televisit Review of Systems Constitutional: Negative for fever. HENT: Negative for sore throat. Respiratory: Negative for cough and shortness of breath. Cardiovascular: Negative for chest pain. Gastrointestinal: Negative for abdominal pain. Neurological: Negative for headaches. No Known Allergies OBJECTIVE There were no vitals filed for this visit. Physical Exam Assessment/Plan Problem List Items Addressed This Visit Rectal prolapse - Primary Televisit Pt is well known to the office of General surgeon Dr. Edmundo Mendez who last saw her on 06/16/2024 Patient requested a second opinion at [facility] to discuss her options. Pt was seen by Dr. Natalie Thrasher 07/03/2024. I spoke directly with Dr. Thrasher who stated that the only way that she would consider performing asurgical repair of her rectal prolapse was if she had a FULL colonoscopy prior ( Colonoscopy: 07/03/2007, While in the Hospital seen by Dr. Schroeder 05/2022 underwent colonoscopy to mid transverse colon limited as patient refused prep ). And after that she would need to be medically optimized. Plan: Refer back to Gastroenterology as recommended by Dr. Natalie Thrasher General surgeon at [facility] for a full colonoscopy Hospital discharge follow-up Pt recently admitted to [facility] from 05/29 until 06/04 after sresented to ER with altered MS and SOB. Found to have hyperkalemia 6.6, HTN, pulmonary edema needing BiPAP support. Undergone emergent dialysis.Also found to have acute pancreatitis with elevated lipase (trended down during hospital stay). HadGI, Nephrology, and Psychiatry consultations while inpatient. 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 Pt has been evaluated for this at [facility] Vascular surgery. last note on record from 01/08/2012 mentioned that this does not offer any major risk and recommended prn f/u Pt had a repeat CT 05/30/2024 that showed: 13 mm partially calcified aneurysm, right main renal artery. Chronic diastolic congestive heart failure (CMS/HCC) Pt previously admitted to [facility] from 03/10/22-03/13/22 for further management with a diagnosis of Acute hypoxemic respiratory failure possibly due to fluid overload/ESRD. Patient received HD and improved. Pt was subsequently readmitted to [facility] from 03/26/22 - 03/27/22 for CHF, hypoxia and ESRD Patient admitted at [facility] from 03/27/22 - 04/07/22. ProBNP elevated >70,000 on 03/27. volume status improved after dyalisis on 03/27. ECHO showed EF 45% . Cardiology consult recommended outpt ischemic work up. [facility] Cardiology called pt on 11/14/23 to schedule new patient appt, they LVM and sent letter out to book. LB She never went to see bridge leverman will refer back Relevant Orders Referral to Cardiology Constipation Patient has been referred to GI in the past, it appears she did not keep those appointments. Relevant Orders Referral to Gastroenterology Renal cyst, left Simple cyst lower pole left kidney seen on CT 12/24/[address] 05/2024 showed: 4 cm cystic lesion, upper pole left kidney. Plan: Urology referral Relevant Orders Referral to Urology End-stage renal disease on hemodialysis ([facility]) HD //Sunday Diabetes mellitus, type II ([facility]) Telehealth Pt has VNA services twice a day, She is no longer using Insulin due to low readings Hgb A1c 03/11/2024: 7 Plan: Continue with NO long acting insulin, use sliding scale if needed f/u with me in 3 months in person Relevant Orders Referral to Podiatry Chronic pain of both knees Persistent bilateral knee pain Responded well to steroid injections in the past Plan: ortho evaluation Relevant Orders Referral to Orthopaedic Surgery documented in this encounter Miscellaneous Notes * Assessment & Plan Note - Sammy Whitehead MD - 07/15/2024 4:19 PM EST Associated Problem(s): Chronic pain of both knees Persistent bilateral knee pain Responded well to steroid injections in the past Plan: ortho evaluation * Assessment & Plan Note - Sammy Whitehead MD - 07/15/2024 4:16 PM EST Associated Problem(s): Diabetes mellitus, type II ([facility]) Telehealth Pt has VNA services twice a day, She is no longer using Insulin due to low readings Hgb A1c 03/11/2024: 7 Plan: Continue with NO long acting insulin, use sliding scale if needed f/u with me in 3 months in person * Assessment & Plan Note - Sammy Whitehead MD - 07/15/2024 4:15 PM EST Associated Problem(s): End-stage renal disease on hemodialysis ([facility]) HD //Sunday * Assessment & Plan Note - Sammy Whitehead MD - 07/15/2024 4:14 PM EST Associated Problem(s): Renal cyst, left Simple cyst lower pole left kidney seen on CT 12/24/[address] 05/2024 showed: 4 cm cystic lesion, upper pole left kidney. Plan: Urology referral * Assessment & Plan Note - Sammy Whitehead MD - 07/15/2024 4:11 PM EST Associated Problem(s): Constipation Patient has been referred to GI in the past, it appears she did not keep those appointments. * Assessment & Plan Note - Sammy Whitehead MD - 07/15/2024 4:07 PM EST Associated Problem(s): Chronic diastolic congestive heart failure (CMS/HCC) Pt previously admitted to [facility] from 03/10/22-03/13/22 for further management with a diagnosis of Acute hypoxemic respiratory failure possibly due to fluid overload/ESRD. Patient received HD and improved. Pt was subsequently readmitted to [facility] from 03/26/22 - 03/27/22 for CHF, hypoxia and ESRD Patient admitted at [facility] from 03/27/22 - 04/07/22. ProBNP elevated >70,000 on 03/27. volume status improved after dyalisis on 03/27. ECHO showed EF 45% . Cardiology consult recommended outpt ischemic work up. [facility] Cardiology called pt on 11/14/23 to schedule new patient appt, they LVM and sent letter out to book. 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 Pt has been evaluated for this at [facility] Vascular surgery. last note on record from 01/08/2012 mentioned that this does not offer any major risk and recommended prn f/u Pt had a repeat CT 05/30/2024 that showed: 13 mm partially calcified aneurysm, right main renal artery. * Assessment & Plan Note - Sammy Whitehead MD - 07/15/2024 3:41 PM EST Associated Problem(s): Hospital discharge follow-up Pt recently admitted to [facility] from 05/29 until 06/04 after sresented to ER with altered MS and SOB. Found to have hyperkalemia 6.6, HTN, pulmonary edema needing BiPAP support. Undergone emergent dialysis.Also found to have acute pancreatitis with elevated lipase (trended down during hospital stay). HadGI, Nephrology, and Psychiatry consultations while inpatient. * Assessment & Plan Note - Sammy Whitehead MD - 07/15/2024 3:34 PM EST Associated Problem(s): Rectal prolapse Televisit Pt is well known to the office of General surgeon Dr. Edmundo Mendez who last saw her on 06/16/2024 Patient requested a second opinion at [facility] to discuss her options. Pt was seen by Dr. Natalie Thrasher 07/03/2024. I spoke directly with Dr. Thrasher who stated that the only way that she would consider performing asurgical repair of her rectal prolapse was if she had a FULL colonoscopy prior ( Colonoscopy: 07/03/2007, While in the Hospital seen by Dr. Schroeder 05/2022 underwent colonoscopy to mid transverse colon limited as patient refused prep ). And after that she would need to be medically optimized. Plan: Refer back to Gastroenterology as recommended by Dr. Natalie Thrasher General surgeon at [facility] for a full colonoscopy documented in this encounter Plan of Treatment Upcoming Encounters Date Type Department Care Team (Late st Contact Info) Description 08/08/2024 1:00 PM EDT Office Visit [facility] MEDICINE [address] [place] [address] [phone] Messi Mccollum MD [address] [place], [place] [phone] 10/14/2024 2:15 PM EDT Telemedicine [facility] [address] [place] [address] [phone] Sammy Reilly MD [address] [place], [place] [phone] Scheduled Referrals Name Type Priority Associated Diagnoses Order Schedule Referral to Cardiology Outpatient Referral Routine Chronic diastolic congestive heart failure (CMS/HCC) Expected: 07/15/2024 (Approximate), Expires: 07/15/2025 Referral to Gastroenterology Outpatient Referral Routine Constipation, unspecified constipation type Expected: 07/15/2024 (Approximate), Expires: 07/15/2025 Referral to Urology Outpatient Referral Routine Renal cyst, left Expected: 07/15/2024 (Approximate), Expires: 07/15/2025 Referral to Podiatry Outpatient Referral Routine Type 2 diabetes mellitus with chronic kidney disease on chronic dialysis, with long-term current use of insulin (CMS/HCC) Expected: 07/15/2024 (Approximate), Expires: 07/15/2025 Referral to Orthopaedic Surgery Outpatient Referral Routine Chronic pain of both knees Expected: 07/15/2024 (Approximate), Expires: 07/15/2025 documented as of this encounter Goals Goal Patient Goal Type Associated Problems Recent Progress Patient-Stated? Author Check and record your blood sugars as directed Blood Pressure Jimbo Barlow PharmD Short-term: Promote adherence to treatment regimen General No Jimbo Burris PharmD Take your medication every day Lifestyle No Jimbo Burris PharmD documented as of this encounter Visit Diagnoses Diagnosis Rectal prolapse- Primary Hospital discharge follow-up Other follow-up examination Renal artery aneurysm ([facility]) Aneurysm of renal artery Chronic diastolic congestive heart failure ([facility]) Constipation, unspecified constipation type Renal cyst, left Unspecified congenital cystic kidney disease End-stage renal disease on hemodialysis ([facility]) Type 2 diabetes mellitus with chronic kidney disease on chronic dialysis, with long-term current use of insulin ([facility]) Chronic pain of both knees documented in this encounter Additional Health Concerns Assessment Noted Time PHQ-9 Depression Total Score: 11 024 9:25 AM EDT documented as of this encounter Care Teams Tool And Die Maker Relationship Specialty Start Date End Date Sammy Reilly MD [address] [place] [phone] PCP - General Internal Medicine 12/23/13 [employer] 04/08/22 Tj Larose MD Calculating Machine Operator Nephrology 04/10/24 documented as of this encounter
--- OUTSIDE RECORDS SUMMARY | 2024-07-21 16:59 | XMS_ITS | Encounter Summary ---
Author Organization [employer] Address [address] [facility] 7t [place] [address] Care Team Providers Care Check Writing Machine Operator Name Role Phone Sammy Reilly MD Primary Care Provide r Reason for Visit * Reason Comments Med Refill Encounter Details Date Type Department Care Team (Late Contact Info) Description 02/12/2023 Refill [facility] 230 [place], [place] [phone] Margarita Rob ANP 230 [place], [place] [phone] Social History Tobacco Use Types Packs/Day Years [...] Department Care Team (Late Contact Info) Description 08/08/2024 1:00 PM EDT Office Visit [facility] [address] [place] [address] Messi Mccollum MD 230 [place] [address] 10/14/2024 2:15 PM EDT Telemedicine [facility] [address] [place], [place] [phone] Sammy Reilly MD 230 [place], [place] [phone] documented as of this encounter Goals Goal [...] documented as of this encounter Care Teams Check Writing Machine Operator Relationship Specialty Start Date End Date Sammy Reilly MD [address] [place] [phone] PCP - General Internal Medicine 12/23/13 [employer] 04/08/22 Tj Larose MD Catalog Librarian Nephrology 04/10/24 documented as of this encounter
--- OUTSIDE RECORDS SUMMARY | 2024-07-21 16:59 | XMS_ITS | Encounter Summary ---
Author Organization [facility] Address [address] [phone] Phone Care Team Providers Care Slot Service Specialist Name Role Phone Unavailable Primary Care Provider Unavailabl e Encounter Details Date Type Department Care Team (Late st Contact Info) Description 06/24/2024 Treatment [facility] [address] [phone] Tj Larose MD [address] [phone] Social History Tobacco Use Types [...] Dialysis Note - Tj Larose MD - 06/24/2024 12:00 AM EST Patient: Cruz Muller : 1955 Note Type: Dialysis Rounds-Comp Service Date: 06/24/2024 This patient was personally seen for a complete visit as part of routine monthly dialysis care for end stage renal disease. Attending Rock Lather: TJ LAROSE MD Dialysis Location: DIALYSIS Schedule: Shift: 2 OVERVIEW Patient is stable. COMMENTS: Note in dialysis customer advocacy manager HOME MEDICATIONS Medications reviewed. BP AND FLUID ASSESSMENT Acceptable blood pressure. Fluid status acceptable. ADEQUACY ASSESSMENT Target met. Prescription compliance acceptable. Kt/V, Natural Log 1.84 (03/27/24) UREA REDUCTION RATIO (%) 78 (03/27/24) BUN 46 (03/27/24) BUN Post Dialysis 10 (03/27/24) Creatinine 7.75 (03/27/24) Bicarbonate (CO2) 24 (04/03/24) 25 (03/27/24) Sodium 132 (04/03/24) 130 (03/27/24) ACCESS ASSESSMENT Vascular access examined. ANEMIA ASSESSMENT Anemia targets met. Hemoglobin not at target. Hgb 4.2 [...] 4.3 03/27/24 Potassium 5.8 04/03/24 6.8 03/27/24 PHYSICAL EXAM Exam performed. Vital Signs Reviewed. Lungs - Clear. CV - Blood pressure noted. No edema. EXT - No ulcers. ADDITIONAL LABS White Blood Cells 9.5 (03/27/24) ADDITIONAL COMMENT COMMENTS: 02/28/24 stable 04/08/24 doing ok Signed by: TJ LAROSE MD on 06/24/2024 at 11:09:25 PM documented in this encounter Plan of Treatment Not on file documented as of this encounter Visit Diagnoses Not on filedocumented in this encounter
--- OUTSIDE RECORDS SUMMARY | 2024-07-21 16:59 | XMS_ITS | Encounter Summary ---
Author Organization [employer] Address [address] [facility] 7t [place] [address] Care Team Providers Care Wire Rope Sales Representative Name Role Phone Sammy Reilly MD Primary Care Provide r Reason for Visit * Reason Comments Med Refill Encounter Details Date Type Department Care Team ([facility] Contact Info) Description 02/09/2023 Refill [facility] 230 [place] [address] Lois Garrett MD 230 [place], [place] [phone] Primary insomnia Social History Tobacco Use Types [...] Upcoming Encounters Date Type Department Care Team ([facility] Contact Info) Description 08/08/2024 1:00 PM EDT Office Visit [facility] [address] [place] [phone] Messi Mccollum MD 230 [place] [address] 10/14/2024 2:15 PM EDT Telemedicine [facility] 230 [facility] [place], [place] [phone] Sammy Reilly MD [address] [place] [address] documented as of this encounter Goals Goal [...] documented as of this encounter Care Teams Wire Rope Sales Representative Relationship Specialty Start Date End Date [place] [address] PCP - General Internal Medicine 12/23/13 [employer] 04/08/22 Tj Larose MD Bindery Manager Nephrology 04/10/24 documented as of this encounter
--- OUTSIDE RECORDS SUMMARY | 2024-07-21 16:59 | XMS_ITS | Encounter Summary ---
Author Organization [email or web address] Address [address] [facility] [address] 7t [place] [address] Care Team Providers Care Chief Arson Division Name Role Phone Sammy Reilly MD Primary Care Provide r Reason for Visit * Reason Onset Date Comments Med Refill 07/18/2024 Encounter Details Date Type Department Care Team ([facility] st Contact Info) Description 07/18/2024 Telephone [facility] 230 [place] [address] Sammy Reilly MD 230 [place] [address] Med Refill Social History Tobacco Use Types [...] Telephone Encounter - Sandra Rapp LPN - 07/18/2024 2:10 PM EST Medication isn't on active med list is PCP prescribing? * Telephone Encounter - Michele Emerson - 07/18/2024 2:03 PM EST TC from pt requesting medication refill. Medications needing refill : hydrALAZINE (Apresoline) 50 MG tablet To be sent to: [facility] - [place], [place] - [address] [facility] documented in this encounter Plan of Treatment Upcoming Encounters Date Type Department Care Team (Late st Contact Info) Description 08/08/2024 1:00 PM EDT Office Visit [facility] [address] [place] [address] Messi Mccollum MD 230 [place], [place] [phone] 10/14/2024 2:15 PM EDT Telemedicine [facility] [address] [place] [address] [phone] Sammy Reilly MD 230 [place], [place] [phone] documented as of this encounter Goals Goal [...] as of this encounter Care Teams Chief Arson Division Relationship Specialty Start Date End Date Sammy Reilly MD [address] [place] [phone] PCP - General Internal Medicine 12/23/13 [employer] 04/08/22 Tj Larose MD Punch Hand Nephrology 04/10/24 documented as of this encounter
--- OUTSIDE RECORDS SUMMARY | 2024-07-21 16:59 | XMS_ITS | Encounter Summary ---
Author Organization [employer] Address [address] [facility] [address] 7[address] [place] [address] Care Team Providers Care Oyster Worker Name Role Phone Sammy Reilly MD Primary Care Provide r Reason for Visit * Reason Comments Med Refill Encounter Details Date Type Department Care Team (Late st Contact Info) Description 11/21/2023 Refill [facility] [address] [place], [place] [phone] Sammy Reilly MD [address] [place] [address] Chronic obstructive pulmonary disease, unspecified COPD type [...] 08/08/2024 1:00 PM EDT Office Visit [facility] [address] [place] [phone] Messi Mccollum MD [address] [place] [phone] 10/14/2024 2:15 PM EDT Telemedicine [facility] [address] [place] [phone] Sammy Reilly MD [address] [place] [phone] documented as of this encounter Goals Goal [...] documented as of this encounter Care Teams Oyster Worker Relationship Specialty Start Date End Date Sammy Reilly MD 230 [place] [address] PCP - General Internal Medicine 12/23/13 [employer] 04/08/22 Tj Larose MD Quill Picking Machine Operator Nephrology 04/10/24 documented as of this encounter
--- OUTSIDE RECORDS SUMMARY | 2024-07-21 16:59 | XMS_ITS | Encounter Summary ---
Author Organization [facility] Address [address] [facility] 7t [place] [address] Care Team Providers Care Food Service Ambassador Name Role Phone Sammy Reilly MD Primary Care Provide r Reason for Visit * Reason Comments Med Refill Encounter Details Date Type Department Care Team (Late Contact Info) Description 05/30/2022 Refill [facility] 230 [place] [address] Sammy Reilly MD [address] [place] [address] [phone] Social History Tobacco Use Types Packs/Day Years [...] Description 08/08/2024 1:00 PM EDT Office Visit [facility] 230 [place] [address] Messi Mccollum MD 230 [place], [place] [phone] 10/14/2024 2:15 PM EDT Telemedicine [facility] [address] [place] [address] Sammy Reilly MD 230 [place], [place] [phone] documented as of this encounter Visit Diagnoses Not on filedocumented in this encounter Care Teams Food Service Ambassador Relationship Specialty Start Date End Date Sammy Reilly MD [address] [place] [address] [phone] PCP - General Internal Medicine 12/23/13 [employer] 04/08/22 Tj Larose MD Shipping Manager Nephrology 04/10/24 documented as of this encounter
--- OUTSIDE RECORDS SUMMARY | 2024-07-21 16:59 | XMS_ITS | Encounter Summary ---
Author Organization [employer] Address [address] [facility] [address] 7t [place] [address] Care Team Providers Care Child Development Assistant Name Role Phone Sammy Reilly MD Primary Care Provide r Reason for Visit * Reason Comments Med Refill Encounter Details Date Type Department Care Team ([facility] st Contact Info) Description 04/20/2023 Refill [facility] 230 [place], [place] [phone] Name, MD Tye 230 [place] [address] Hypertension secondary to other renal disorders Social [...] Description 08/08/2024 1:00 PM EDT Office Visit [facility] [address] [place] [phone] Messi Mccollum MD [address] [place] [phone] 10/14/2024 2:15 PM EDT Telemedicine [facility] [address] [place] [phone] Sammy Reilly MD [address] [place] [address] [phone] documented as of this encounter Goals Goal [...] documented as of this encounter Care Teams Child Development Assistant Relationship Specialty Start Date End Date Sammy Reilly MD [address] [place] [phone] PCP - General Internal Medicine 12/23/13 [email or web address] 04/08/22 Tj Larose MD Client Development Manager Nephrology 04/10/24 documented as of this encounter
--- OUTSIDE RECORDS SUMMARY | 2024-07-21 16:59 | XMS_ITS | Encounter Summary ---
Author Organization [facility] [facility] Address [address] [facility] 7t [place] [address] Care Team Providers Care Unit Coordinator Name Role Phone Sammy Reilly MD Primary Care Provide r Reason for Visit * Reason Comments Med Refill Encounter Details Date Type Department Care Team (Late Contact Info) Description 06/20/2022 Refill [facility] 230 [place] [address] Sammy Reilly MD 230 [place], [place] [phone] Primary hypertension (Primary Dx); Uncomplicated opioid dependence [...] Upcoming Encounters Date Type Department Care Team ([facility] Contact Info) Description 08/08/2024 1:00 PM EDT Office Visit [facility] 230 [place], [place] [phone] Messi Mccollum MD 230 [facility] [address] 10/14/2024 2:15 PM EDT Telemedicine [facility] [address] [place] [phone] Sammy Reilly MD [address] [facility] [place] [address] documented as of this encounter Visit Diagnoses Diagnosis Primary hypertension- Primary Unspecified essential hypertension Uncomplicated opioid dependence (CMS/HCC) documented in this encounter Care Teams Unit Coordinator Relationship Specialty Start Date End Date Sammy Reilly MD [place] [phone] PCP - General Internal Medicine 12/23/13 [employer] 04/08/22 Tj Larose MD Gaming Investigator Nephrology 04/10/24 documented as of this encounter
--- OUTSIDE RECORDS SUMMARY | 2024-07-21 16:59 | XMS_ITS | Clinical Summary ---
Author Organization [employer] Address [address] [facility] [address] [place] [address] Care Team Providers Care Geomorphology Teacher Name Role Phone Sammy Reilly MD Primary Care Provide r Allergies No known active allergies Medications * This document contains information received from the source organization and may not represent a complete record from that organization. sennosides (Senokot) 8.6 MG tablet TAKE 2 TABLETS BY MOUTH AT BEDTIME 022 Active Spacer/Aero-Hol ding Chambers (Compact Space Chamber) deviceIndicatio ns:Occitan Space chamber use with albuterol pump Active Blood Glucose Monitoring Suppl (FreeStyle Lite) device Inject under the skin if needed. Freestyle lite meter kit Test 1 times by intradermal route every day Active Alcohol Swabs (SM Alcohol Prep) 70 % pads USE DIRECTED 022 Active bumetanide (Bumex) 2 MG tablet TAKE 1 TABLET BY MOUTH EVERY DAY 022 Active Banophen 25 MG capsule TAKE 1 CAPSULE BY MOUTH EVERY DAY NEEDED FOR ALLERGIES 022 Active nicotine polacrilex (Commit) 2 MG lozenge Dissolve 1 lozenge (2 mg) in the mouth if needed for smoking cessation. 100 lozenge 023 Active Nutritional Supplements (Glucerna Shake) liquid drink one can twice a day 237 mL 11 023 Active mirtazapine (Remeron) 15 MG tablet Take 1 tablet by mouth Once daily. 023 Active calcium acetate (Phoslo) 667 MG capsule Take 1 capsule by mouth with meals and with snacks. Do not take more than 5 capsules in one day Active Flovent HFA 110 MCG/ACT inhaler INHALE 1 PUFF BY MOUTH TWICE DAILY 12 g 023 Active cloNIDine (Catapres) 0.1 MG tablet [...] THE MORNING 180 capsule 024 Active B Csmuxoh-C-Amiyt Acid (Elle-Sharifa Rx) 1 MG tablet TAKE 1 TABLET BY MOUTH EVERY DAY 90 tablet 3 024 Active losartan (Cozaar) 50 MG tablet TAKE 1 TABLET BY MOUTH EVERY DAY IN THE MORNING 30 tablet 3 024 Active Aspirin Adult Low Strength 81 MG EC tablet TAKE 1 TABLET BY MOUTH EVERY DAY 30 tablet 11 024 Active TRUEplus Lancets 33G [facility] TEST BLOOD SUGAR FIVE TIMES DAILY 100 each 024 Active glucose 4 g chewable tablet [...] DAILY DIRECTED 100 g 2 024 Active Acetaminophen Extra Strength 500 MG tabletIndicatio ns:Chronic midline low back pain without sciatica TAKE 1 TABLET BY MOUTH EVERY 8 HOURS NEEDED FOR PAIN 30 tablet 9 024 Active ondansetron (Zofran) 4 MG tabletIndicatio ns:Nausea TAKE 1 TABLET BY MOUTH EVERY TWELVE HOURS FOR NAUSEA AND VOMITING 20 tablet 9 024 Active albuterol (Ventolin HFA) 108 (90 [...] FOR 10 DAYS 22 g 025 Active albuterol (2.5 MG/3ML) 0.083% nebulizer solutionIndicat ions:Chronic obstructive pulmonary disease, unspecified COPD type (CMS/HCC) INHALE 1 AMPULE USING A NEBULIZER EVERY 6 HOURS NEEDED FOR WHEEZING 90 mL 3 025 Active lactulose (Chronulac) 10 GM/15ML solutionIndicat ions:Constipati on, unspecified constipation type TAKE 15 ML BY MOUTH EVERY DAY PRN for CONSTIPATION 473 mL 3 025 Active isosorbide dinitrate (Isordil) 30 MG tabletIndicatio ns:Hypertension secondary to other renal disorders TAKE 1 TABLET BY MOUTH THREE TIMES DAILY 90 tablet 2 Active FREESTYLE LITE test stripIndication s:Type 2 diabetes mellitus with chronic kidney disease on chronic dialysis, with long-term current use of insulin (CMS/HCC) Use to check blood sugar 3 times daily 100 strip 3 025 Active nicotine (Nicoderm, Step 2) 14 MG/24HR patchIndication s:Tobacco use disorder APPLY 1 PATCH TOPICALLY TO THE SKIN IN THE MORNING *DO NOT SMOKE WHILE USING PATCH* 28 patch 2 025 Active buprenorphine-n aloxone (Suboxone) 12-3 MG per sublingual filmIndications :Uncomplicated opioid dependence (CMS/HCC) Place 1 Film under the tongue Once per day for 28 days. 28 Film 025 2024 Active Buprenorphine HCl-Naloxone HCl (Suboxone) 8-2 MG SL filmIndications :Uncomplicated opioid dependence (CMS/HCC) Place 2 Film under the tongue Once per day for 28 days. 56 Film 024 2024 Discontinued(D ose adjustment) nicotine (Nicoderm, Step 2) 14 MG/24HR patchIndication s:Tobacco use disorder APPLY 1 PATCH TOPICALLY TO THE SKIN IN THE MORNING *DO NOT SMOKE WHILE USING PATCH* 28 patch 2 024 2024 Discontinued buprenorphine-n aloxone (Suboxone) 12-3 MG per sublingual filmIndications :Uncomplicated opioid dependence (CMS/HCC) Place 1 Film under the tongue Once per day for 3 days. 3 Film 025 2024 Discontinued(R eorder (will not trigger notification to Pharmacy)) buprenorphine-n aloxone (Suboxone) 12-3 MG per sublingual filmIndications :Uncomplicated opioid dependence (CMS/HCC) Place 1 Film under the tongue Once per day for 18 days. 18 Film 025 2024 Discontinued(D ose adjustment) buprenorphine-n aloxone (Suboxone) 12-3 MG per sublingual filmIndications :Uncomplicated opioid dependence (CMS/HCC) Place 1 Film under the tongue Once per day for 28 days. 28 Film 025 2024 Discontinued(R eorder (will not trigger notification to Pharmacy)) Active Problems Problem Noted Date Diagnosed Date Hepatitis C virus infection, unspecified chronic ity 12/03/2023 Hyperkalemia 10/18/2023 Assessment & Plan (10/18/2023 9:17 AM EDT): Pt recently admitted to [facility] for hyperkalemia. Pt's K improved after Lokelma and HD. Her Losartan was discontinued as well Plan: Repeat BMP Hospital discharge follow-up 10/18/2023 Assessment & Plan (07/15/2024 3:41 PM EST): Pt recently admitted to [facility] from 05/29 until 06/04 after sresented to ER with altered MS and SOB. Found to have hyperkalemia 6.6, HTN, pulmonary edema needing BiPAP support. Undergone emergent dialysis. Also found to have acute pancreatitis with elevated lipase (trended down during hospital stay). Had GI, Nephrology, and Psychiatry consultations while inpatient. Assessment & Plan (10/18/2023 9:17 AM EDT): Pt recently admitted to [facility] 10/16/2023 for hyperkalemia. Pt's K improved after Lokelma and HD. Her Losartan was discontinued as well Plan: Repeat BMP Rectal prolapse 10/18/2023 Assessment & Plan (07/15/2024 4:01 PM EST): Televisit Pt is well known to the office of General surgeon Dr. Edmundo Mendez who last saw her on 06/16/2024 Patient requested a second opinion at [facility] to discuss her options. Pt was seen by Dr. Natalie Thrasher 07/03/2024. I spoke directly with Dr. Thrasher who stated that the only way that she would consider performing a surgical repair of her rectal prolapse was if she had a FULL colonoscopy prior ( Colonoscopy: 07/03/2007, While in the Hospital seen by Dr. Schroeder 05/2022 underwent colonoscopy to mid transverse colon limited as patient refused prep ). And after that she would need to be medically optimized. Plan: Refer back to Gastroenterology as recommended by Dr. Natalie Thrasher General surgeon at [facility] for a full colonoscopy Assessment & Plan (03/11/2024 9:23 AM EDT): Pt here for a follow up after she was seen again at [facility] ER with c/o rectal prolapse. Pt is [...] basis. Patient requested a second opinion at [facility] Surgeons to discuss her options. This referral [...] Mammogram: 01/25/2019 , referred missed appointment previously, INSTRUMENT DESIGNER tells me she will make the appointment Pap Smear: NL 05/29/2018 Colonoscopy: 07/03/2007, While in the Hospital seen by Dr. Schroeder 05/2022 underwent colonoscopy to mid transverse colon limited as patient refused prepped no colitis or proctitis, noted to have normal mucosa GI recommend to advance diet Chronic diastolic congestive heart failure 06/27 Assessment & Plan (07/15/2024 4:07 PM EST): Pt previously admitted to [facility] from 03/10/22-03/13/22 for further management with a diagnosis of Acute hypoxemic respiratory failure possibly due to fluid overload/ESRD. Patient received HD and improved. Pt was subsequently readmitted to [facility] from 03/26/22 - 03/27/22 for CHF, hypoxia and ESRD Patient admitted at [facility] from 03/27/22 - 04/07/22. ProBNP elevated >70,000 on 03/27. volume status improved after dyalisis on 03/27. ECHO showed EF 45% . Cardiology consult recommended outpt ischemic work up. [facility] Cardiology called pt on 11/14/23 to schedule new patient appt, they LVM and sent letter out to book. LB She never went to see funeral pre arrangement counselor will refer back Assessment & Plan (10/18/2023 9:34 AM EDT): Pt previously admitted to [facility] from 03/10/22-03/13/22 for further management with a diagnosis of Acute hypoxemic respiratory failure possibly due to fluid overload/ESRD. Patient received HD and improved. Pt was subsequently readmitted to [facility] from 03/26/22 - 03/27/22 for CHF, hypoxia and ESRD Patient admitted at [facility] from 03/27/22 - 04/07/22. ProBNP elevated >70,000 on 03/27. volume status improved after dyalisis on 03/27. ECHO showed EF 45% . Cardiology consult recommended outpt ischemic work up. She never went to see funeral pre arrangement counselor will refer back Assessment & Plan (12/28/2022 10:03 AM EDT): Pt previously admitted to [facility] from 03/10/22-03/13/22 for further management with a diagnosis of Acute hypoxemic respiratory failure possibly due to fluid overload/ESRD. Patient received HD and improved. Pt was subsequently readmitted to [facility] from 03/26/22 - 03/27/22 for CHF, hypoxia and ESRD Patient admitted at [facility] from 03/27/22 - 04/07/22. ProBNP elevated >70,000 on 03/27. volume status improved after dyalisis on 03/27. ECHO showed EF 45% . Cardiology consult recommended outpt ischemic work up. Pt Tells me she finally went to see the Band Splicer . 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 Pt has been evaluated for this at [facility] Vascular surgery. last note on record from 01/08/2012 mentioned that this does not offer any major risk and recommended prn f/u Pt had a repeat CT 05/30/2024 that showed: 13 mm partially calcified aneurysm, right main renal artery. Assessment & Plan (10/18/2023 9:35 AM EDT): Pt has a Hx of a 9 mm right renal artery aneurysm seen on most recent CTA on 06/08/2011 but No stenosis. This was done in the ER. Pt has been evaluated for this at [facility] Vascular surgery. last note on record from 01/08/2012 mentioned that this does not offer any major risk and recommended prn f/u Assessment & Plan (12/28/2022 9:50 AM EDT): Pt has a Hx of a 9 mm right renal artery aneurysm seen on most recent CTA on 06/08/2011 but No stenosis. This was done in the ER. Pt has been evaluated for this at [facility] Vascular surgery. last note on record from 01/08/2012 mentioned that this does not offer any major risk and recommended prn f/u Thickened endometrium 05/09/2022 Constipation 05/09/2022 Assessment & Plan (07/15/2024 4:11 PM EST): Patient has been referred to GI in the past, it appears she did not keep those appointments. Assessment & Plan (10/03/2022 9:53 AM EDT): Here for a follow up, seen at our [facility] after pt reported 7 days w/o BM, [...] visit today but promised to go to [facility] hospital tomorrow AM. Will request status check next business day (10/02/22) ?? Zofran refilled per request, however reviewed med safety and SE Follow up as needed, patient in agreement with plan End-stage renal disease on hemodialysis 11/28/20 22 Assessment & Plan (07/15/2024 4:15 PM EST): HD //Sunday Assessment & Plan (12/28/2022 9:59 AM EDT): HD //Sunday Still awaiting AV fistula placement. Posterior subcapsular polar senile cataract 09/19 Presbyopia 10/11/2017 Renal cyst, left 10/19/2015 Assessment & Plan (07/15/2024 4:14 PM EST): Simple cyst lower pole left kidney seen on CT 12/24/[address] 05/2024 showed: 4 cm cystic lesion, upper pole left kidney. Plan: Urology referral Assessment & Plan (12/28/2022 10:00 AM EDT): Simple cyst lower pole left kidney seen on CT 12/24/2022 Chronic pain of both knees 03/18/2015 Assessment & Plan (07/15/2024 4:19 PM EST): Persistent bilateral knee pain Responded well to steroid injections in the past Plan: ortho evaluation Assessment & Plan (10/18/2023 9:38 AM EDT): Persistent bilateral knee pain Responded well to steroid injections in the past Plan: ortho evaluation Obesity 11/29/2011 Mantoux: positive 11/29/2011 Osteoarthritis of [...] mellitus, type II 11/02/2011 Assessment & Plan (07/15/2024 4:16 PM EST): Telehealth Pt has VNA services twice a day, She is no longer using Insulin due to low readings Hgb A1c 03/11/2024: 7 Plan: Continue with NO long acting insulin, use sliding scale if needed f/u with me in 3 months in person Assessment & Plan (03/11/2024 9:18 AM EDT): [...] Unable to take NSAIDS Depressive disorder 05/21/1959 Urinary incontinence 05/21/1959 Assessment & Plan [...] Encounters Date Type Department Care Team Description 07/18/2024 Telephone [facility] [address] [place] [phone] Sammy Reilly MD Med Refill 07/15/2024 3:00 PM EST Telemedicine [address] [address] Sammy Reilly MD Rectal prolapse (Primary Dx); Hospital discharge follow-up; Renal artery aneurysm ([facility]); Chronic diastolic congestive heart failure ([facility]); Constipation, unspecified constipation type; Renal cyst, left; End-stage renal disease on hemodialysis ([facility]); Type 2 diabetes mellitus with chronic kidney disease on chronic dialysis, with long-term current use of insulin ([facility]); Chronic pain of both knees 07/15/2024 Travel 07/14/[address] [address] Sammy Reilly MD DME L&C 07/11/2024 1:00 PM EST Telemedicine [facility] [address] [place] [phone] Messi Mccollum MD Uncomplicated opioid dependence ([facility]/HCC) 07/11/[address] [address] Sammy Reilly MD Chart Prep Tele 07/11/2024 Travel 07/10/2024 Telephone [facility] [address] [place] [address] Sammy Reilly MD Appointment Confirmation 07/10/2024 Telephone [facility] [address] [place], [place] [address] Sammy Reilly MD Appointment Request 07/09/2024 Telephone [facility] [address] [place], [place] [address] Sammy Reilly MD 07/08/2024 Telephone [facility] [address] [place], [place] [address] Sammy Reilly MD Appointment Request 07/08/2024 Refill [facility] [address] [place], [place] [address] Jessica Rahman, CELIO Uncomplicated opioid dependence (CMS/HCC) 06/27/2024 Refill [facility] [address] [place] [address] Sammy Reilly MD Tobacco use disorder 06/26/2024 Telephone [facility] [address] [place] [address] Sammy Reilly MD 06/23/2024 Refill [facility] [address] [place] [address] Humberto Joseph RN Uncomplicated opioid dependence (CMS/HCC) 06/20/2024 10:00 AM EST Office Visit [facility] [place] [address] Messi Mccollum MD Uncomplicated opioid dependence (CMS/HCC) (Primary Dx) 06/20/2024 Travel 06/18/2024 Refill [facility] [address] [place] [address] Hattie Gonzales MD Hypertension secondary to other renal disorders 06/17/2024 Telephone [facility] [address] [place] [address] Jessica Rahman, RN 06/16/2024 Refill [facility] [address] [place], [place] [address] Lashawn Bang RN Type 2 diabetes mellitus with chronic kidney disease on chronic dialysis, with long-term current use of insulin (CMS/[facility]) 06/16/2024 Refill [facility] [address] [place] [address] Messi Mccollum MD Uncomplicated opioid dependence (CMS/HCC) 06/16/2024 Telephone [facility] [address] [place] [address] Demi Esquivel RN 06/16/2024 Refill [facility] [address] [place] [address] Demi Esquivel RN Uncomplicated opioid dependence ([facility]) 06/16/2024 Telephone [facility] [address] [place] [address] Demi Esquivel RN 06/12/2024 Telephone [facility] [address] [place] [address] Sammy Reilly MD No Show 06/11/2024 5:00 PM EST Office Visit [facility] [address] [place] [address] Nolberto Cates MD Rectal prolapse (Primary Dx); Constipation, unspecified constipation type 06/10/2024 Telephone [facility] [address] [place] [address] Sammy Reilly MD PA 06/08/2024 Refill [facility] [address] [place] [address] Sammy Reilly MD Type 2 diabetes mellitus with chronic kidney disease on chronic dialysis, with long-term current use of insulin (CMS/[facility]); Chronic obstructive pulmonary disease, unspecified COPD type ([facility]) 06/07/2024 Refill [facility] [address] [place] [address] Sebastián Lora MD Chronic obstructive pulmonary disease, unspecified COPD type (CMS/HCC) 06/05/2024 Telephone [facility] [address] [place] [address] Sammy Reilly MD FYI 06/05/2024 Telephone [facility] [address] [place] [address] Sammy Reilly MD Chart Prep 05/30/2024 Refill [facility] [address] [place] [address] Jessica Rahman RN Uncomplicated opioid dependence ([facility]) 05/29/2024 Orders Only GENERIC EXTERNAL DATA DEPARTMENT Provider, Generic External Data 05/26/2024 Telephone [facility] [address] [facility] [place] [address] Sammy Reilly MD Medication Question 05/26/2024 Refill [facility] [address] [facility] [place] [address] Sammy Reilly MD Constipation due to opioid therapy; Chronic obstructive pulmonary disease, unspecified COPD type ([facility]) 05/21/2024 Orders Only GENERIC EXTERNAL DATA DEPARTMENT Provider, Generic External Data 05/16/2024 Refill [facility] [facility] [place] [address] Demi Esquivel RN Uncomplicated opioid dependence ([facility]) 05/08/2024 Refill [facility] [address] [facility] [place] [address] Sammy Reilly MD Chronic gastritis without bleeding, unspecified gastritis type; Primary insomnia 05/02/2024 Telephone [facility] [place] [facility] [place] [address] Sammy Reilly MD June05/02/2024 Refill [facility] [address] [facility] [place] [address] Demi Esquivel RN Uncomplicated opioid dependence ([facility]) 04/28/2024 Patient Outreach [facility] [facility] [place] [address] Sammy Reilly MD Transition Of Care (Tcm) (HDF- [facility]) 04/28/2024 Telephone [facility] [facility] [place] [address] Sammy Reilly MD Hospital Follow-up from Last 3 Months Immunizations Name Administration Dates Next Due Hep B, adult 04/09/2003,11/17/1999 Influenza injectable quadriv alent preservative free 02/26/2021,05/29/2018 Influenza, IIV3, injectable 03/08/2024, 4,02/08/2011 Influenza, Injectable, MDCK, preservative free 07/12/2015 Influenza, seasonal, injecta ble, preservative free 04/19/2015 Influenza, trivalent, adjuvanted 04/19/2015 Moderna Covid-19 Vaccine 12+ 05/17/2021,08/28/19,07/30/2020 Pfizer Covid-19 Vaccine 12+ Bivalent 03/03/2022 Pneumococcal [...] Description 08/08/2024 1:00 PM EDT Office Visit [facility] [address] [place] [phone] Messi Mccollum MD [address] [place] [phone] 10/14/2024 2:15 PM EDT Telemedicine [facility] [address] [place] [address] Sammy Reilly MD [address] [place] [address] Health Maintenance Due Date Last Done Comments [...] exists Depression Screening 10/17/2024 10/18/2023, 10/18/19 24 Mammogram 11/06/2024 11/07/2023, 11/11/2018, 01/30/2018 DTaP/Tdap/Td Vaccines (2 - Td or Tdap) 01/07/2025 01/07/2015 Alcohol/Substance Use Screening 03/11/2025 03/11/2024 Tobacco Screening 06/11/2025 06/11/2024 SDOH Screening 07/15/2025 07/15/2024 Dental X-Ray: Full Mouth 03/31/2026 03/30/2023 HPV/Cotest 12/04/2028 12/05/2023, 05/29/2018 Pap Smear 12/04/2028 12/05/2023 Pneumococcal Vaccine: 50+ Years Completed 09/05/2022, 08/04/2022, 07/12/2015, Additional history [...] QL NAAT Routine 05/21/2024 3:10 PM EST POCT GLYCATED HEMOGLOBIN, TOTAL Routine 03/11/2024 9:16 [...] EST Narrative 06/01/2024 9:58 AM EST ? [facility] ?[address] ?[place] [address] ? Ultrasound Report ? Signed ? Patient: Muller, Heidy ?MR#: [id number] ?? 460 ? : 1955 ?Acct:[id number] ? Age/Sex: 69 / F ?ADM Date: 05/29/24 ? Loc: [facility] ?482-1 ? Attending Dr: Hattie TAYLOR ? Ordering Physician: Hattie Govea ?? Date of Service: 06/01/24 ?? Procedure(s): US abdomen complete ?? Accession Number(s): [id number] ? cc: Hattie Govea; Sammy Vicente MD [...] DD/ 0956 ? TD/TT: 06/01/24 0956 ? Delivery Table Feeder: ? Procedure Note Daniella Watson - 06/01/2024 [facility] [address] [place] [address] Ultrasound Report Signed Patient: Cruz MullerMR#: [id number] 460 : 6Acct:[id number] Age/Sex: 69 / FADM Date: 05/29/24 Loc: [facility] 482-[address]: Hattie TAYLOR Ordering Physician: Hattie Govea Date of Service: 06/01/24 Procedure(s): US abdomen complete Accession Number(s): [id number] cc: Hattie Govea; Sammy Vicente MD CLINICAL [...] OV> 06/01/24 0957 DD/ 5 TD/TT: 06/01/24955 Delivery Table Feeder: us [facility] External Provider IMG US PROCEDURES Final Result * CT Abdomen Pelvis w/o Contrast (05/30/2024 10:13 AM EST) Anatomical Region Laterality Modality Body, Pelvis, Abdomen Computed T omography 05/30/2024 10:1 3 AM EST Narrative 05/30/2024 11:12 AM EST ? [facility] ?[address] ?[place] [address] ? CT Scan Report ? Signed ? Patient: Muller, Heidy ?MR#: [id number] ?? 460 ? : 1955 ?Acct:[id number] ? Age/Sex: 69 / F ?ADM Date: 05/29/24 ? Loc: HO.[facility] ?482-1 ? Attending Dr: Hattie TAYLOR ? Ordering Physician: Hattie Govea ?? Date of Service: 05/30/24 ?? Procedure(s): CT abdomen pelvis wo IV con ?? Accession Number(s): [id number] ? cc: Hattie Govea; Sammy Vicente MD ? Report Number: ?? [id number]: Total DLP = ??466.00 mGy-cm ?? EXAMINATION: [...] DD/ 1013 ? TD/TT: 05/30/24 1045 ? Delivery Table Feeder: ? Procedure Note Donotuseinterpreter, Image - 05/30/[address] [address] [address] Scan Report Signed Patient: Cruz MullerMR#: [id number] : 6Acct:[id number] Age/Sex: 69 / FADM Date: 05/29/24 Loc: [facility] 482-[address]: Hattie TAYLOR Ordering Physician: Hattie Govea Date of Service: 05/30/24 Procedure(s): CT abdomen pelvis wo IV con Accession Number(s): [id number] cc: Hattie Govea; Sammy Vicente MD Report Number: [id number]: Total DLP = 466.00 mGy-cm EXAMINATION: CT [...] 05/30/24 1110 DD/ 1013 TD/TT: 05/30/24 1045 Delivery Table Feeder: [facility] External Provider IMG CT PROCEDURES Final Result * (ABNORMAL) Glucose, Whole Blood (05/29/2024 12:31 PM EST) Glucose, Whole Blood 318(H) 60 - 115 mg/dL [facility] Comment:METER #: [id number] 05/29/2024 12:3 1 PM EST 05/29/2024 12:44 PM EST us Generic External Data Provider LAB BLOOD ORDERAB LES Final Result Performing Organization Address [facility] de Phone Number [facility] [address] [place] [phone] * (ABNORMAL) VENOUS BLOOD GAS (05/29/2024 11:02 AM EST) Only the most recent of2 resultswithin the time period is included. VBG pH 7.32 7.32 - 7.43 [facility] Comment:METER #: [id number] additional_comment: Sergei diehl VBG PCO2 39 mmHg [facility] Comment:METER #: [id number] additional_comment: Cb estephaniaa VBG PO2 104 mmHg [facility] Comment:METER #: [id number] additional_comment: Cb fazal VBG Base Excess -4.9 mmol/L [facility] Comment:METER #: [id number] additional_comment: Cb fazal VBG HCO3 20(L) 22 - 26 mmol/L [facility] Comment:METER #: [id number] additional_comment: Sergei diehl O2 Sat, Juan Jose 98.0 % [facility] Comment:METER #: [id number] additional_comment: Sergei diehl 05/29/2024 11:0 2 AM EST 05/29/2024 11:07 AM EST us Generic External Data Provider LAB BLOOD ORDERAB LES Final Result Performing Organization Address [facility] Co de Phone Number [facility] [address] [place] [phone] * XR Chest 1 View (05/29/2024 10:44 AM EST) Only the most recent of3 resultswithin the time period is included. Anatomical Region Laterality Modality Chest Radiographic Bety ging 05/29/2024 10:4 4 AM EST Narrative 05/29/2024 11:36 AM EST ? [facility] ?[address] ?[place] [address] ?XRay Report ? Signed ? Patient: Muller, Heidy ?MR#: [id number] ?? [id number] ? : 1955 ?Acct:[id number] ? Age/Sex: 69 / F ?ADM Date: 05/29/24 ? Loc: HO.ED ? Attending Dr: ? Ordering Physician: Jessika Treadwell ?? Date of Service: 05/29/24 ?? Procedure(s): XR chest 1V ?? Accession Number(s): [id number] ? cc: Sammy Vicente MD; Jessika Treadwell [...] 11:33 AM EST RP ? Dictated By: ?Tasia,Orlando S MD ? Signed By: ?<Electronically signed by Orlando S MD Tasia in OV> ?05/29/24 1133 ? DD/ 1044 ? TD/TT: 05/29/24 1104 ? Delivery Table Feeder: MSM ? Procedure Note Daniella Watson - 05/29/2024 [facility] [address] [place] [address] XRay Report Signed Patient: Cruz Muller [facility]#: [id number] : 6Acct:[id number] Age/Sex: 69 / FADM Date: 05/29/24 Loc: HO.ED Attending Dr: Ordering Physician: Jessika Treadwell Date of Service: 05/29/24 Procedure(s): XR chest 1V Accession Number(s): [id number] cc: Sammy Vicente MD; Jessika Treadwell EXAMINATION: [...] MD 05/29/2024 11:33 AM EST Dictated By: Orlando Dozier MD Signed By: <Electronically signed by Orlando Dozier MD in OV> 05/29/24 1133 DD/ 1044 TD/TT: 05/29/24 1104 Delivery Table Feeder: MAUREEN [facility] External Provider IMG XR PROCEDURES Final Result * Lactic Acid (05/21/2024 3:45 PM EST) Lactic Acid 1.2 0.5 - 2.0 mmol/L [facility] 05/21/2024 3:45 PM EST 05/21/2024 3:55 PM EST Generic External Data Provider LAB BLOOD ORDERAB LES Final Result [facility] [address] [place] [phone] * (ABNORMAL) High Sensitivity Troponin I (05/21/2024 3:33 PM EST) TROPONIN I HIGH SENSITIVITY 25.9(H) <3.5 - 17.0 ng/L [facility] Comment:The Rivera high sens itivity Troponin-I results should beused in conjunction with other diagnostic information suchas ECG, clinical observations and information, and patientsymptoms to aid in the diagnosis of NV. 05/21/2024 3:33 PM EST 05/21/2024 3:36 PM EST us Generic External Data Provider LAB BLOOD ORDERAB LES Final Result [facility] [address] [place], [place] [phone] * (ABNORMAL) CBC auto differential (05/21/2024 3:33 PM EST) White Blood Count 9.3 4.8 - 10.8 X10*3/uL [facility] Red Blood Count 3.93(L) 4.20 - 5.50 X10*6/uL [facility] Hemoglobin 13.1 12.0 - 16.0 g/dl [facility] Hematocrit 40.2 37.0 - 47.0 % [facility] Mean Corpuscular Volume 102.3(H) 80.0 - 98.0 fL [facility] Mean Corpuscular Hemoglobin 33.3(H) 27.0 - 33.0 pg [facility] Mean Corpuscular HGB Conc 32.6 31.0 - 35.0 g/dl [facility] Red Cell Distribution Width 15.5 11.0 - 16.0 % [facility] Platelet Count 267 160 - 400 X10*3/uL [facility] Mean Platelet Volume 10.3 9.4 - 12.3 fL [facility] Neutrophils Percent Auto 74.5(H) 45 - 73 % [facility] Imm Gran Pct Auto 0.5(H) 0.0 - 0.4 % [facility] Lymphocytes Percent Auto 16.5(L) 20 - 40 % [facility] Monocytes Percent Auto 5.3 2 - 11 % [facility] Eosinophils Percent Auto 2.9 0 - 4 % [facility] Basophils Percent Auto 0.3 0 - 2 % [facility] NRBC Pct Auto 0.0 0.0 - 0.2 /100WBC [facility] Neutrophils Absolute Auto 6.9 2.0 - 8.3 x10*3/uL [facility] Imm Gran Abs Auto 0.05(H) 0.00 - 0.03 X10*3/uL [facility] Lymphocytes Absolute Auto 1.5 1.2 - 4.9 X10*3/uL [facility] Monocytes Absolute Auto 0.5 0.1 - 1.2 X10*3/uL [facility] Eosinophils Absolute Auto 0.3 0.0 - 0.4 X10*3/uL [facility] Basophils Absolute Auto 0.0 0.0 - 0.2 X10*3/uL [facility] NRBC Abs Auto 0.000 0.0 - 0.012 X10*3/uL [facility] 05/21/2024 3:33 PM EST 05/21/2024 3:36 PM EST us Generic External Data Provider LAB BLOOD ORDERAB LES Final Result Performing Organization Address City/State/[facility] Co de Phone Number [facility] [address] [place] [phone] * (ABNORMAL) Prothrombin Time-INR (05/21/2024 3:33 PM EST) Prothrombin Time 10.1(L) 10.9 - 12.4 SEC [facility] INTERNATIONAL NORM RATIO 0.9 0.9 - 1.1 [facility] Comment:INTERNATIONAL NORMAL IZED RATIO (INR) [...] ORDERAB LES Final Result Performing Organization Address [facility]/ZIP Co de Phone Number [facility] [address] [place] [phone] * (ABNORMAL) B Type Natriuretic Peptide (BNP) (05/21/2024 3:33 PM EST) B Type Natriuretic Peptide 3,639(H) <100 pg/mL [facility] Comment:For those patients w ho are being treated with Natrecor(nesiritide, recombinant BNP), BNP testing should beperformed at least two hours post treatment in order toensure that only endogenous levels of BNP are detected. 05/21/2024 3:33 PM EST 05/21/2024 3:36 PM EST us Generic External Data Provider LAB BLOOD ORDERAB LES Final Result Performing Organization Address [facility] Co de Phone Number [facility] [address] [place] [phone] * (ABNORMAL) Magnesium (05/21/2024 3:33 PM EST) Magnesium 2.9(H) 1.6 - 2.6 mg/dL [facility] 05/21/2024 3:33 PM EST 05/21/2024 3:36 PM EST us Generic External Data Provider LAB BLOOD ORDERAB LES Final Result Performing Organization Address [facility] Co de Phone Number [facility] [address] [place] [phone] * (ABNORMAL) Hepatic Function Panel (05/21/2024 3:33 PM EST) Bilirubin, Total 0.4 0.0 - 1.0 mg/dL [facility] Bilirubin, Direct 0.1 0.0 - 0.5 mg/dL [facility] Aspartate Amino Transferase 31 5 - 31 U/L [facility] Alanine Aminotransferase 15 0 - 31 U/L [facility] Total Protein 8.3(H) 6.5 - 8.0 g/dL [facility] Albumin Level 4.3 3.5 - 5.0 g/dL [facility] Alkaline Phosphatase 151(H) 39 - 117 U/L [facility] 05/21/2024 3:33 PM EST 05/21/2024 3:36 PM EST us Generic External Data Provider LAB BLOOD ORDERAB LES Final Result [facility] [address] [place] [phone] * (ABNORMAL) Basic Metabolic Panel (05/21/2024 3:33 PM EST) Sodium 131(L) 135 - 145 mmol/L [facility] Potassium 6.5(HH) 3.3 - 5.1 mmol/L [facility] Comment:Critical value for t est(s):POTS Results called to and readback by: Episencial Person calling: SALIERD Date:05/21/23 Time:1616 Chloride 89(L) 96 - 108 mmol/L [facility] Carbon Dioxide 27 22 - 29 mmol/L [facility] Anion Gap 22(H) 12 - 20 [facility] Urea Nitrogen (BUN) 40(H) 9 - 16 mg/dL [facility] Creatinine, Serum 7.90(HH) 0.5 - 1.4 mg/dL [facility] Comment:Critical value for t est(s): RALPH Results called to and readback by:Episencial Person calling: SALIERD Date:05/21/23 Time:1616 Creatinine Clr Calc Pharmacy TNP [facility] Comment:Unable to calculate eCrCL; all parameters not provided. Estimated Glomerular Filt Rate 5 [facility] Comment:Chronic Kidney Disea se: Estimated GFR < 60 mL/min/1.11b9Zlrsyi Kidney Disease: Estimated GFR < 15 mL/min/1.73m2 Glucose 203(H) 60 - 115 mg/dL [facility] Calcium 11.6(H) 8.4 - 10.2 mg/dL [facility] 05/21/2024 3:33 PM EST 05/21/2024 3:36 PM EST Generic External Data Provider LAB BLOOD ORDERAB LES Final Result Performing Organization Address [facility] Co de Phone Number [facility] [address] [place] [phone] * SARS-CoV-2 RNA, Influenza A/B, and RSV RNA, Ql NAAT (05/21/2024 3:10 PM EST) Influenza A PCR NEGATIVE Negative [facility] Influenza B PCR NEGATIVE Negative [facility] Resp Syncy Virus RNA Qual PCR NEGATIVE Negative [facility] SARS COV2 PCR NEGATIVE Negative [facility] Comment:All test results mus t be [...] use by authorized laboratories.Testing performed on the Dialogic GeneXpert utilizingreal-time RT-PCR.All SARS CoV2 and positive influenza A/B results arereported to [facility]. 05/21/2024 3:10 PM EST 05/21/2024 3:15 PM EST Generic External Data Provider LAB MICROBIOLOGY - GENERAL ORDERABLES Final Result Performing Organization Address [facility]/ZIP Co de Phone Number [facility] [address] [place] [address] [phone] * (ABNORMAL) POCT HGB A1C (03/11/2024 9:16 AM EDT) Pathologist [facility] Hemoglobin A1C 7.0(A) 4.0 - 6.0 % QC Media Lot # [id number] Lot# Expiration Date [id number] Blood 03/11/2024 9:16 AM EDT Sammy Whitehead MD POINT OF CARE TEST EN TER/EDIT ORDERABLES Final Result * ThinPrep Imaging Pap and HPV mRNA E6/E7 (12/05/2023 9:53 AM EDT) [facility] HPV nRNA E6/E7 Not Detected Not Detected [facility] Comment:Methodology: Transcr iption-Mediated AmplificationThis assay detects E6/E7 viral messenger RNA (mRNA) from 14high-risk HPV types (16,18,31,33,35,39,45,51,52,56,58,59,66,68).Cervical sources are required for HPV testing.If a vaginal source from a patient who has had atotal hysterectomy with removal of cervix wassubmitted, please contact the testing laboratoryfor alternative testing options.For additional information, please refer tohttp://education.PAAY/faq/KFF675u5(This link if provided for information/educational purposes only.)THIS TEST WAS PERFORMED AT:[facility] [place] [phone] JUNE MD SOURCE: SEE NOTE [facility] Comment:None given Report Status: [facility] Clinical Information: SEE NOTE [facility] Comment:None given LMP: SEE NOTE [facility] Comment:NONE GIVEN Prev. PAP: SEE NOTE [facility] Comment:NONE GIVEN Prev. BX: SEE NOTE [facility] Comment:NONE GIVEN Statement Of Adequacy: SEE NOTE [facility] Comment:Satisfactory for amandeep luation.Endocervical/transformation zone component absent. General Categorization: [facility] Interpretation/Result: SEE NOTE [facility] Comment:Cytology Results: Ne gative for intraepitheliallesion or malignancy. Cytology Comment SEE NOTE [facility] Comment:This Pap test has be en evaluated with computerassisted technology. Robotic Machine Tender Production: SEE NOTE [facility] Comment:DMM, CT(ASCP)CT scre ening location: [place] [address] Review Robotic Machine Tender Production: [facility] Pathologist [facility] PAP Infection [facility] See Note SEE NOTE [facility] Comment:EXPLANATORY NOTE:The Pap is a screening test for cervical cancer. It isnot a diagnostic test and is subject to false negativeand false positive results. It is most reliable when asatisfactory sample, regularly obtained, is submittedwith relevant clinical findings and history, and whenthe Pap result is evaluated along with historic andcurrent clinical information. 12/05/2023 9:53 AM EDT 12/05/2023 4:42 PM EDT Narrative [facility] - 12/12/2023 5:23 PM EDT SEE SCANNED RESULTS IN EMR Geena Umana CNM LAB PATHOLOGY ORDERABLES Final Result [facility] [address] [place] [phone] [phone] * BI Mammogram Screening Tomosynthesis Bilateral (11/07/2023 2:55 PM EDT) Anatomical Region Laterality Modality Breast Bilateral Mammography 11/07/2023 2:55 PM EDT Narrative 12/05/2023 11:54 AM EDT ? [facility] ? [address] ?[place] [address] ? Mammography Report ? Signed ? Patient: Muller, M ?MR#: [id number] ? : 1955 ?Acct:[id number] ? Age/Sex: 68 / F ?ADM Date: 06/19/24 ? Loc: HO.MAMMO ? Attending Dr: Sammy Vicente MD ? Ordering Physician: Sammy Vicente MD ?Resu ?? lts: 1Negative ? Date of Service: 11/07/23 ?Follow Up: 1 Year From Orig ?? inal Mammogram ? Procedure(s): MM tomosynthesis screening BI ?? Accession Number(s): [id number] ? cc: Sammy Vicente MD ? EXAMINATION: [...] by Emelina Goldman MD in OV> ? 12/05/230 ? DD/ 1455 ? TD/TT: ? Delivery Table Feeder: ? Procedure Note Donotannalisainterpreter, Image - 12/05/2023 [facility] [address] [place], [place] [address] Mammography Report Signed Patient: Cruz Muller MMR#: [id number] : 6Acct:[id number] Age/Sex: 68 / FADM Date: 11/07/23 Loc: HO.MAMMO Attending Dr: Sammy Vicente MD Ordering Physician: Sammy Vicente MDResu lts: 1Negative Date of Service: 11/07/23Follow Up: 1 Year From Orig inal Mammogram Procedure(s): MM tomosynthesis screening BI Accession Number(s): [id number] cc: Sammy Vicente MD EXAMINATION: MM SCREENING [...] for their next mammogram. Dictated By: Emelina Goldamn MD Signed By: <Electronically signed by Emelina Goldman MD in OV> 12/05/23 1150 DD/ 8805 TD/TT: Delivery Table Feeder: us Sammy Whitehead MD IMG BI PROCEDURES [...] ?? Chaitanya TAVAREZ et al. CARLOS. 2013;310(19): 6452-2203 ?? (http://education.CARGOBR/faq/OXQ087) Non-HDL Cholesterol 175(H) <130 mg/dL (calc) [facility] [...] Whitehead MD LAB BLOOD ORDERABLES Final Result [facility] Anywhere [address] from Last 3 Months or Most Recently Relevant to Health Maintenance Insurance [facility] Care Teams Geomorphology Teacher Relationship Specialty Start Date End Date Sammy Reilly MD [address] [place] [address] PCP - General Internal Medicine 12/23/13 [place] 04/08/22 Tj Larose MD Solar Electric/Photovoltaic Installer Nephrology 04/10/24
--- OUTSIDE RECORDS SUMMARY | 2024-07-21 16:59 | XMS_ITS | Encounter Summary ---
Author Organization [facility] Address [address] [place] [address] Phone Care Team Providers Care Quality Assurance Associate Name Role Phone Unavailable Primary Care Provider Unavailabl e Encounter Details Date Type Department Care Team (Late st Contact Info) Description 11/10/2021 Office Communication [facility] [address] [place] [address] Sigrid Hollingsworth, CELIO Social History [...]
--- OUTSIDE RECORDS SUMMARY | 2024-07-21 16:59 | XMS_ITS | Encounter Summary ---
Author Organization [facility] Address [address] [phone] Phone Care Team Providers Care Club Attendant Name Role Phone Unavailable Primary Care Provider Unavailabl e Encounter Details Date Type Department Care Team (Late st Contact Info) Description 07/01/2024 Treatment [facility] [address] [phone] Ryan Lange MD [address] [phone] Social History Tobacco Use Types [...] encounter Miscellaneous Notes * Dialysis Note - Ryan Lange MD - 07/01/2024 12:00 AM EST Patient: Cruz Muller : 1955 Note Type: Dialysis Rounds-Basic Service Date: 07/01/2024 This patient was personally seen for a basic visit as part of routine monthly dialysis care for end stage renal disease. Attending Help Desk Administrator: YOHANNES BURGOS MD Dialysis Location: [facility] Schedule: Shift: 2 OVERVIEW COMMENTS: Note in dialysis case manager specialist ADEQUACY ASSESSMENT Kt/V, Natural Log 1.84 (03/27/24) [...] COMMENT COMMENTS: 02/28/24 stable 04/08/24 doing ok 07/01/24 stable Signed by: RYAN LANGE MD on 07/03/2024 at 06:37:17 AM documented in this encounter Plan of Treatment Not on file documented as of this encounter Visit Diagnoses Not on filedocumented in this encounter
--- OUTSIDE RECORDS SUMMARY | 2024-07-21 16:59 | XMS_ITS | Encounter Summary ---
Author Organization [facility] Address [address] [address] Phone Care Team Providers Care Plumbing Technician Name Role Phone Unavailable Primary Care Provider Unavailabl e Encounter Details Date Type Department Care Team (Late st Contact Info) Description 07/05/2024 Treatment [facility] [address] [phone] Tj Larose MD [address] [phone] Social History Tobacco Use Types [...] Dialysis Note - Tj Larose MD - 07/05/2024 12:00 AM EST Patient: Cruz Muller : 1955 Note Type: Dialysis Rounds-Basic Service Date: 07/05/2024 This patient was personally seen for a basic visit as part of routine monthly dialysis care for end stage renal disease. Attending Prize Coordinator: TJ LAROSE MD Dialysis Location: [facility] Schedule: Shift: 2 OVERVIEW Patient is stable. COMMENTS: Note in dialysis scrum project manager ADEQUACY ASSESSMENT Kt/V, Natural Log 1.84 [...] 04/08/24 doing ok 07/01/24 stable Signed by: TJ LAROSE MD on 07/05/2024 at 11:31:55 AM documented in this encounter Plan of Treatment Not on file documented as of this encounter Visit Diagnoses Not on filedocumented in this encounter
--- OUTSIDE RECORDS SUMMARY | 2024-07-21 16:59 | XMS_ITS | Encounter Summary ---
Author Organization [facility] Address [address] [facility] [address] [place] [address] Care Team Providers Care Trial Manager Name Role Phone Sammy Reilly MD Primary Care Provide r Encounter Details Date Type Department Care Team (Late st Contact Info) Description 05/08/2022 Orders Only [facility] [address] [place] [phone] Swetha Ribera LPN Social History Tobacco Use [...] 1:00 PM EDT Office Visit [facility] [address] [place] [phone] Messi Mccollum MD [address] [place] [phone] 10/14/2024 2:15 PM EDT Telemedicine [facility] [address] [place] [phone] Sammy Reilly MD [address] [place] [address] [phone] documented as of this encounter Visit Diagnoses Not on filedocumented in this encounter Care Teams Trial Manager Relationship Specialty Start Date End Date Sammy Reilly MD [address] [place] [phone] PCP - General Internal Medicine 12/23/13 [place] (roll.to) 04/08/22 Tj Larose MD On Awake Counselor Nephrology 04/10/24 documented as of this encounter
--- OUTSIDE RECORDS SUMMARY | 2024-07-21 16:59 | XMS_ITS | Encounter Summary ---
Author Organization [employer] Address [address] [facility] [address]t [place] [address] Care Team Providers Care List Of First Job Ideas Name Role Phone Sammy Reilly MD Primary Care Provide r Reason for Visit * Reason Comments Med Refill Encounter Details Date Type Department Care Team (Late st Contact Info) Description 05/05/2022 Refill [facility] [address] [place] [address] Margarita Rob, ANP [address] [place] [address] Chronic obstructive pulmonary disease, unspecified COPD type [...] Description 08/08/2024 1:00 PM EDT Office Visit [facility] [address] [place] [phone] Messi Mccollum MD [address] [place], [place] [phone] 10/14/2024 2:15 PM EDT Telemedicine [facility] [address] [place], [place] [phone] Sammy Reilly MD [address] [place] [address] [phone] documented as of this encounter Visit Diagnoses Diagnosis Chronic obstructive pulmonary disease, unspecified COPD type (CMS/HCC)- Primary documented in this encounter Care Teams List Of First Job Ideas Relationship Specialty Start Date End Date Sammy Reilly MD [address] [place] [address] [phone] PCP - General Internal Medicine 12/23/13 [place] 04/08/22 Tj Larose MD Planishing Press Operator Nephrology 04/10/24 documented as of this encounter
--- OUTSIDE RECORDS SUMMARY | 2024-07-21 16:59 | XMS_ITS | Encounter Summary ---
Author Organization [facility] Address [address] [address] Phone Care Team Providers Care Absorber Operator Name Role Phone Unavailable Primary Care Provider Unavailabl e Encounter Details Date Type Department Care Team (Late st Contact Info) Description 07/12/2024 Treatment [facility] [address] [phone] Tj Larose MD [address] [address] Social History Tobacco Use Types [...] Dialysis Note - Tj Larose MD - 07/12/2024 12:00 AM EST Patient: Cruz Muller : 1955 Note Type: Dialysis Rounds-Basic Service Date: 07/12/2024 This patient was personally seen for a basic visit as part of routine monthly dialysis care for end stage renal disease. Attending Lye Treater: TJ LAROSE MD Dialysis Location: [facility] Schedule: Shift: 2 OVERVIEW Patient is stable. COMMENTS: Note in dialysis cooperative manager ADEQUACY ASSESSMENT Kt/V, Natural Log 1.84 [...] stable Signed by: TJ LAROSE MD on 07/12/2024 at 01:35:18 PM documented in this encounter Plan of Treatment Not on file documented as of this encounter Visit Diagnoses Not on filedocumented in this encounter
--- OUTSIDE RECORDS SUMMARY | 2024-07-21 16:59 | XMS_ITS ---
Author Organization [facility] Address [address] [place] [address] Care Team Providers Care Em Physician Name Role Phone Marco A Whitehead MD, Sammy Primary Care Provide r Unavailable Alexandre Garcia, Joao Chua REASON FOR VISIT referral PROBLEMS Problem Type ICD Code Onset Dates Problem Status W/U Status Risk SNOMED Code Notes Problem Steatohepatitis (K75.81) Active confirmed [id number] Encounters Encounter Location Date Provider Diagnosis [facility] [address] [place] [address] 01/17/2024 Joao Schroeder Jr Steatohepatitis K75.81 ASSESSMENTS Encounter Date Diagnosis Assessment Notes Treatment Notes Treatment Clinical Notes 01/17/2024 Steatohepatitis (ICD-10 - K75.81) PLAN OF TREATMENT Pending Test Test Name Order Date US ABD 01/17/2024 Next Appt Details Provider Name:Joao cedillo Jr, 09/17/2024 10:40:00 AM, [address], [address], [place], [address],
--- OUTSIDE RECORDS SUMMARY | 2024-07-21 16:59 | XMS_ITS | Encounter Summary ---
Author Organization [employer] Address [address] [facility] 7t [place] [address] Care Team Providers Care Publication Director Name Role Phone Sammy Reilly MD Primary Care Provide r Reason for Visit * Reason Comments Med Refill Encounter Details Date Type Department Care Team ([facility] Contact Info) Description 02/12/2023 Refill [facility]INE [address] [place] [address] Lois Garrett MD [address] [place], [place] [phone] Hypertension secondary to other renal disorders Social [...] Upcoming Encounters Date Type Department Care Team ([facility] Contact Info) Description 08/08/2024 1:00 PM EDT Office Visit [facility]INE [address] [place] [address] Messi Mccollum MD [address] [place] [address] 10/14/2024 2:15 PM EDT Telemedicine [facility] [address] [place], [place] [phone] Sammy Reilly MD [address] [place], [place] [phone] documented as of this encounter Goals Goal [...] documented as of this encounter Care Teams Publication Director Relationship Specialty Start Date End Date Sammy Reilly MD [address] [place] [address] PCP - General Internal Medicine 12/23/13 [employer] 04/08/22 Tj Larose MD Factory Clerk Nephrology 04/10/24 documented as of this encounter
--- OUTSIDE RECORDS SUMMARY | 2024-07-21 17:00 | XMS_ITS | Encounter Summary ---
Author Organization [employer] Address [address] [facility] 7t [place] [address] Care Team Providers Care Aerosol Supervisor Name Role Phone Sammy Reilly MD Primary Care Provide r Reason for Visit * Reason Onset Date Comments Referral 09/14/2022 Encounter Details Date Type Department Care Team ([facility] st Contact Info) Description 09/14/2022 Telephone [facility] MED[facility]INE [address] [place] [address] Sammy Reilly MD [address] [place] [address] Referral Social History Tobacco Use Types Packs/Day [...] 09/14/2022 2:57 PM EDT T/C returned to [facility] re below message. Heidy stated pt was [...] appt. Heidy stated Chelly who is her BAKER APPRENTICE is the only who fully care for her and keeps her going to appts, she also has VNA that come 2x a day and an BRAND ADVISOR that comes to check up on her as well. Heidy verbalized understanding and denied having any further questions or concerns at this time. * Telephone Encounter - Brandee Christie - 09/14/2022 10:32 AM EDT Tc from Heidy Bahena Nurse with [facility] requesting a status on other two referral for Pulmonary and GI. Please contact Heidy at [phone] documented in this encounter Plan of Treatment Upcoming Encounters Date Type Department Care Team (Late st Contact Info) Description 08/08/2024 1:00 PM EDT Office Visit [facility] MEDICINE [address] [place] [address] Messi Mccollum MD [address] [place] [address] 10/14/2024 2:15 PM EDT Telemedicine [facility] [address] [place] [address] Sammy Reilly MD [address] [place] [address] documented as of this encounter Visit Diagnoses Diagnosis Uncomplicated opioid dependence (CMS/HCC) documented in this encounter Care Teams Aerosol Supervisor Relationship Specialty Start Date End Date Sammy Reilly MD [address] [place] [address] PCP - General Internal Medicine 12/23/13 [employer] 04/08/22 Tj Larose MD Booster Plant Operator Nephrology 04/10/24 documented as of this encounter
--- OUTSIDE RECORDS SUMMARY | 2024-07-21 17:00 | XMS_ITS | Encounter Summary ---
Author Organization [employer] Address [address] 7t [place] [address] Care Team Providers Care Rink Rat Name Role Phone Sammy Reilly MD Primary Care Provide r Reason for Visit * Reason Comments Med Refill Encounter Details Date Type Department Care Team ([facility] st Contact Info) Description 01/16/2024 Refill [facility] MED[facility]INE [address] [place], [place] [phone] Sammy Reilly MD 230 [place], [place] [phone] Primary hypertension Social History Tobacco Use Types [...] 1:00 PM EDT Office Visit [facility] [address] [place] [address] Messi Mccollum MD [address] [place] [address] 10/14/2024 2:15 PM EDT Telemedicine [facility] [address] [place] [address] Sammy Reilly MD [address] [place] [address] documented as of this encounter Goals Goal [...] documented as of this encounter Care Teams Rink Rat Relationship Specialty Start Date End Date Sammy Reilly MD [address] [place] [address] PCP - General Internal Medicine 12/23/13 [employer] 04/08/22 Tj Larose MD Roller Setter Nephrology 04/10/24 documented as of this encounter
--- OUTSIDE RECORDS SUMMARY | 2024-07-21 17:00 | XMS_ITS | Encounter Summary ---
Author Organization [employer] Address [address] 7t [place] [address] Care Team Providers Care Bingo Floater Name Role Phone Sammy Reilly MD Primary Care Provide r Reason for Visit * Reason Onset Date Comments Appointment Confirmation 07/10/2024 Encounter Details Date Type Department Care Team ([facility] st Contact Info) Description 07/10/[address] [facility] MEDICINE [address] [place] [address] Sammy Reilly MD [address] [place] [address] Appointment Confirmation Social History Tobacco Use Types Packs/Day Years [...] t he electric, gas, oil or water [employer] threatened to shut off services in your [...] Telephone Encounter - Aracely Christensen [place] - 07/10/2024 10:38 AM EST Received incoming call from SAHARA bustamante in regards to making an appt. SAHARA stated that we could at least do a Televisit appt to at least speak with pcp which was scheduled for 07/15/24 @3pm. I expressedthat I will let pcp know that she finishes dialysis Sunday and at 4pm. LB documented in this encounter Plan of Treatment Upcoming Encounters Date Type Department Care Team (Late st Contact Info) Description 08/08/2024 1:00 PM EDT Office Visit [facility] MED[facility]INE [address] [place] [address] Messi Mccollum MD [address] [place] [address] 10/14/2024 2:15 PM EDT Telemedicine [facility] [address] [place] [address] Sammy Reilly MD [address] [place] [address] documented as of this encounter Goals Goal [...] documented as of this encounter Care Teams Bingo Floater Relationship Specialty Start Date End Date Sammy Reilly MD [address] [place] [address] PCP - General Internal Medicine 12/23/13 [employer] 04/08/22 Tj Larose MD Cargo Services Coordinator Nephrology 04/10/24 documented as of this encounter
--- OUTSIDE RECORDS SUMMARY | 2024-07-21 17:00 | XMS_ITS | Data Portability ---
Author Organization [facility] [employer] Address [address] [place] [address] Care Team Providers Care Inclusion Internship Name Role Phone [facility] Referring Provider [facility] OTHER Assessment [...] in the field was performed by my energy conservation representative colleague, as noted above, I provided real-time [...] Assessment and Plan as documented by the Research Quality Assurance Specialist. Patient given the opportunity to ask questions. Our service contacted for an assessment of: HTN As per above, patient with known HTN (poorly controlled) and ESRD on HD T, TH, Sat. Took her BPs meds and then took her meds. Noted to be high and RN called for a recheck. Per energy conservation representative on the scene, patient took meds within 2 hours. Going for HD tomorrow. asymptomatic and denies CP, SOB, SEAMAN, HANCOCK, change in vision. Feels the same as usual. Impression: HTN and ESRD Plan: Continue to take scheduled meds. Attend HD in AM. Follow up with your Mink Rancher in AM for medications adjustments. Discussed red [...] None recorded. Imaging None recorded. Medication Orders diphenhydra mine 25 mg tablet 2021 022 [facility], [address] [place] [address], [id number], 17:13:24 ondansetron 4 mg disintegrat ing tablet 2021 therees [facility], [address] [place] [address], [id number], 17:13:24 Diabetic Tussin DM 10 mg-100 mg/5 mL oral liquid 2021 donna [facility], [address] [place] [address], [id number], 19:20:47 Patient TargetsNo targets recorded. Patient InstructionsNo instructions [...] Address Organization Details Last Updated DateTime 4 11257.8 g 18 /min 98.2 [degF] 82 /min 98 % 98 % 154.94 cm 194 mm[Hg] 100 mm[Hg] Not Available [email or web address] 4 18:13:07 Date Recorded Body temperature Oxygen saturation Oxygen saturation in Arterial blood by Pulse oximetry Respiratory rate Heart rate Systolic blood pressure Diastolic blood pressure Provider Name and Address Organization Details Last Updated DateTime 2 98.4 [degF] 98 % 98 % 18 /min 90 /min 208 mm[Hg] 78 mm[Hg] Not Available [email or web address] 2 18:56:10 Date Recorded Respiratory rate Body [...] mm[Hg] 154 mm[Hg] 83 mm[Hg] Not Available [email or web address] 2 18:00:34 Date Recorded Body weight Heart [...] Address Organization Details Last Updated DateTime 3 96531.2 24 g 48 /min 18 /min 96 % 96 % 154.94 cm 97.9 [degF] 04261.2 24 g 48 /min 96 % 96 [...] Note 2925 Lázaro Tobar MD Main - [address] [address] 12/12/2021 18:56:07 02/09/2022 18:42:13 Cough 61076156 R05.1 Acute sherie l bronchitis [id number] J20.8 4855 Duke Barkley MD [facility] - [address] [address] 03/15/2022 17:06:51 03/21/2022 15:11:00 Nausea [id number] R11.0 Reports nausea after hemodialys is and [...] by care team. 9084 KHLOE BRADLEY MD [facility] - [address] [address] 08/21/2022 16:56:47 08/22/2022 22:48:09 Chronic low back pain [id number] M54.50 back pain has been present for several days but similar to prior episodes according to pt. Nausea [id number] R11.0 constellat [place] [address] Felisha Rothman MD Main - [address] [address] 09/10/2023 18:13:05 09/10/2023 21:09:31 Hypertensive disorder 32731577 I10 Health Concerns Section Related Observation LastModified [...] ELIGIBLE (MEDICARE REPLACEMENT/ADV ANTAGE - HMO) Muller [id number] Cruz Sol Muller 03/15/2022 1 [employer] - DOS PRIOR TO 2022 - DUAL ELIGIBLE (MEDICARE REPLACEMENT/ADV ANTAGE - HMO) Cruz Muller [id number] Cruz Sol Muller 08/21/2022 1 [employer] - DOS PRIOR TO 2022 - DUAL ELIGIBLE (MEDICARE REPLACEMENT/ADV ANTAGE - HMO) Muller [id number] Cruz Sol Muller 09/10/2023 1 [employer] - DOS ON OR AFTER 2022 - DUAL ELIGIBLE - SENIOR LIVING OPTIONS AND ONE CARE (MEDICARE REPLACEMENT/ADV ANTAGE - HMO) Muller [id number] Cruz Muller Notes Date Note Type Note Provider Name and Address Organization Details Recorded Time 12/12/2021 text/html HPI: Stage 5 kidney dialysis opioid dependence .................... .................... .................... .................... .................... .................... .................... . [facility] Nursing Assessment: Comments: Determine if cough is Covid related or COPD/CHF. Treatment if needed. Pt is requesting cough syrup. .................... .................... .................... .................... .................... .................... .................... . Research Quality Assurance Specialist Note: Pt complains of dry cough x2 days. Denies fever/sob/cp/ any other ailments. Pt hypertensive during visit but has dialysis early tomorrow morning. COVID test conducted with result (-). [employer] contacted. Script for cough syrup called to pharmacy. .................... .................... .................... .................... .................... .................... .................... . Disposition: Fulfilled Lázaro Tobar MD [address] [facility],[address], [place], [address], [facility] 12/12/2021 19:23:56 03/15/2022 text/html HPI: Pt with hx of itching x 1 month, was nauseous in AM and had 1 episode of vomiting. Unable to obtain rx for anti emetic and anti-itching medication PCP prescribed. PCP can't see pt until 04/13/2022, please check VS. Might need fluids. Member was dc home [facility] [place] [facility] where she was treated for CHF and Respiratory Failure on 03/10/22 , is on Dialysis 3 days a week. Pt is 66-year-old female with past medical history of CHF, ESRD on dialysis presents the [facility] with nausea vomiting as well as [...] .................... .................... .................... .................... .................... .................... . Research Quality Assurance Specialist Note: Community Paramedics Farrah chacko and Janette Stern dispatched to a yellow for a 67 you c/o nausea and itchiness. Pt was recently discharged from [facility] after resp failure\CHF, and placed on dialysis. Pt also took suboxone 2X a day. She reported that she was unable to get a rx refill. advertising photographer from pt's PCP called while onscene; requested rx refills for antiemetic, itch relief, more ventolin, and a reduction in stool softener due to loose stool for 5 days. RN spoke w/ pt, scheduled a follow up appt and stated she would contact the pt's INSURANCE COUNSELOR. She denied headache, dizziness, sore throat, fever, cough, CP, abd pain, urinary s/s; no redness, swelling, or hives seen or indicated. C consulted; pt given 4 mg PO ondansetron and 25 mg PO diphenhydramine. Pt eating on scene before EMS departure. Red flags discussed. Need for social security assessor conveyed to .................... .................... .................... .................... .................... .................... .................... . Disposition: Fulfilled Duke Barkley MD [address] [facility],[address], [place], [address], [facility] 03/15/2022 20:09:41 08/21/2022 text/html HPI: 67 yo. Romansh speaking female, who speaks some Honduran, illiterate, reporting having lower back pain and nausea today, stated nausea medication helped little and that her Transportation did not show for Hemodialysis as schedule. Treated for MSSA Bacteremia at [facility] from 08/07-08/18/2022. Stated to feel unwell, [...] Member has 4 days a dialysis at [facility]. Member has appt with PCP 09/12 and is scheduled for dialysis Sunday. .................... .................... .................... .................... .................... .................... .................... . [facility] Nursing Assessment: Comments: No additional information needed .................... .................... .................... .................... .................... .................... .................... . Research Quality Assurance Specialist Note From Jessika Cool: Sent to a call for a pt complaining of low back pain and nausea. SC8 arrives on scene, pt is alert and oriented, airway is patent. Pt's primary language is Romansh, hose wrapper line used during assessment. Pt has chronic [...] no edema noted; Skin: unremarkable; C consulted, [facility] Austad serves as hose wrapper during consult. Pt is advised to go to dialysis tomorrow as planned. If symptoms do not improve after dialysis then pt is advised to go to ED for further evaluation/treatment . Red flags discussed. Pt has no further questions. .................... .................... .................... .................... .................... .................... .................... . Disposition: Fulfilled KHLOE BRADLEY MD [address] [facility],[address], [place], [address], [facility] 08/21/2022 19:00:33 09/10/2023 text/html HPI: business services assistant requesting visit for member with HTN. BP today 184/97. Took BP medication 2 hours ago. Has not rechecked BP after medication. Asymptomatic. Denies CP, SOB, or Dizziness. .................... .................... .................... .................... .................... .................... .................... . Research Quality Assurance Specialist Note From J Luis Gomez: Smart[facility] visit for female patient with reported hypertension. Pt presents conscious and alert ambulating in home. Pt had nurse present with her who dispenses her meds. Pt reports she was on the phone with home care coordinator earlier in the day and disclosed that [...] her blood pressure is good. Consulted with [facility] Dr. Rothman who advised no acute treatments needed. Ensured patient had phone number to call back [facility] should she want another visit. Patient education provided. Reviewed red flags for ED. .................... .................... .................... .................... .................... .................... .................... . Disposition: Fulfilled Felisha Rothman MD [address] [facility],[address], [place], [address], [facility] [address] 09/10/2023 18:21:03 OBGyn Episode No OBEpisode recorded.
--- OUTSIDE RECORDS SUMMARY | 2024-07-21 17:00 | XMS_ITS | Encounter Summary ---
Author Organization [employer] Address [address] 7t [place] [address] Care Team Providers Care Washerette Machine Operator Name Role Phone Sammy Reilly MD Primary Care Provide r Reason for Visit * Reason Onset Date Comments Med Refill 06/23/2024 Encounter Details Date Type Department Care Team ([facility] st Contact Info) Description 06/23/2024 Refill [facility] MEDICINE [address] [place] [address] Humberto Joseph, CELIO [address] [place] [address] Uncomplicated opioid dependence (CMS/HCC) Social History Tobacco [...] the past 12 months, has t he [employer], gas, oil or water company threatened to [...] Description 08/08/2024 1:00 PM EDT Office Visit [facility] MED[facility]INE [address] [place] [address] Messi Mccollum MD [address] [place] [address] 10/14/2024 2:15 PM EDT Telemedicine [facility] [address] [place] [phone] Sammy Reilly MD [address] [place] [address] documented as of this encounter Goals Goal Patient Goal Type Associated Problems Recent Progress Patient-Stated? Author Check and record your blood sugars as directed Blood Pressure No Jimbo Burris PharmD Short-term: Promote adherence to treatment regimen General No Jimbo Burris PharmD Take your medication every day Lifestyle No Jimob Burris PharmD documented as of this encounter Visit Diagnoses Diagnosis Uncomplicated opioid dependence (CMS/HCC) documented in this encounter Additional Health Concerns Assessment Noted Time PHQ-9 Depression Total Score: 11 024 9:25 AM EDT documented as of this encounter Care Teams Washerette Machine Operator Relationship Specialty Start Date End Date Sammy Reilly MD [address] [place] [address] PCP - General Internal Medicine 12/23/13 [email or web address] 04/08/22 Tj Larose MD Guard Rail Installer Nephrology 04/10/24 documented as of this encounter
--- OUTSIDE RECORDS SUMMARY | 2024-07-21 17:00 | XMS_ITS | Encounter Summary ---
Author Organization [employer] [facility] Address [address] [facility] 7t [place] [address] Care Team Providers Care Motor Electrician Name Role Phone Sammy Reilly MD Primary Care Provide r Reason for Visit * Reason Comments Med Refill Encounter Details Date Type Department Care Team (Late st Contact Info) Description 11/29/2022 Refill [facility] MEDICINE [address] [place] [address] Messi Mccollum MD [address] [place] [address] Tobacco use disorder Social History Tobacco Use [...] Description 08/08/2024 1:00 PM EDT Office Visit [facility] MEDICINE [address] [place], [place] [phone] Messi Mccollum MD [address] [place], [place] [phone] 10/14/2024 2:15 PM EDT Telemedicine [facility] MEDICINE [address] [place], [place] [phone] Sammy Reilly MD [address] [place], [place] [phone] documented as of this encounter Goals Goal [...] documented as of this encounter Care Teams Motor Electrician Relationship Specialty Start Date End Date Sammy Reilly MD [address] [place] [address] PCP - General Internal Medicine 12/23/13 [employer] 04/08/22 Tj Larose MD Fitness Trainer Nephrology 04/10/24 documented as of this encounter
--- OUTSIDE RECORDS SUMMARY | 2024-07-21 17:00 | XMS_ITS ---
Author Organization [facility] Address [address] [place] [address] Care Team Providers Care Rubber Flap Tuber Machine Operator Name Role Phone Marco A Whitehead MD, Sammy Primary Care Provide r Toma Schroeder Jr, Joao Chua Encounters Encounter Location Date Provider Diagnosis [facility] [address] [place] [address] 01/18/2024 Joao Schroeder Jr PLAN OF TREATMENT Next Appt Details Provider Name:Joao cedillo Jr, 09/17/2024 10:40:00 AM, [address], [address], [place], [address],
--- OUTSIDE RECORDS SUMMARY | 2024-07-21 17:00 | XMS_ITS | Encounter Summary ---
Author Organization [email or web address] Address [address] 7t [place] [address] Care Team Providers Care Production Manufacturing Worker Name Role Phone Sammy Reilly MD Primary Care Provide r Reason for Visit * Reason Comments Med Refill Encounter Details Date Type Department Care Team ([facility] st Contact Info) Description 06/16/2024 Refill [facility] [address] [place] [address] Messi Mccollum MD [address] [place] [address] Uncomplicated opioid dependence (CMS/HCC) Social History Tobacco [...] the past 12 months, has t he [employer], gas, oil or water [employer] threatened to shut off services in your [...] Description 08/08/2024 1:00 PM EDT Office Visit [facility] MED[facility]INE [address] [place] [address] Messi Mccollum MD [address] [place] [address] 10/14/2024 2:15 PM EDT Telemedicine [facility] [address] [place] [address] Sammy Reilly MD [address] [place] [address] documented as of this encounter Goals Goal [...] documented as of this encounter Care Teams Production Manufacturing Worker Relationship Specialty Start Date End Date Sammy Reilly MD [address] [place] [address] PCP - General Internal Medicine 12/23/13 [employer] 04/08/22 Tj Larose MD Data Analyst Etl Developer Nephrology 04/10/24 documented as of this encounter
--- OUTSIDE RECORDS SUMMARY | 2024-07-21 17:00 | XMS_ITS | Encounter Summary ---
Author Organization [employer] Address [address] [facility] [address] 7t [place] [address] Care Team Providers Care Ophthalmic Asst Name Role Phone Sammy Reilly MD Primary Care Provide r Reason for Visit * Reason Comments Med Refill Encounter Details Date Type Department Care Team ([facility] st Contact Info) Description 05/09/2023 Refill [facility] [address] [place], [place] [phone] Sammy Reilly MD 230 [place] [address] Social History Tobacco Use Types Packs/Day Years [...] 1:00 PM EDT Office Visit [facility] [address] [place] [address] Messi Mccollum MD [address] [place] [address] 10/14/2024 2:15 PM EDT Telemedicine [facility]INE [address] [place] [address] Sammy Reilly MD [address] [place] [address] documented as of this encounter Goals Goal [...] documented as of this encounter Care Teams Ophthalmic Asst Relationship Specialty Start Date End Date Sammy Reilly MD [address] [place] [address] PCP - General Internal Medicine 12/23/13 [employer] 04/08/22 Tj Larose MD Senior Media Planner Nephrology 04/10/24 documented as of this encounter
--- OUTSIDE RECORDS SUMMARY | 2024-07-21 17:00 | XMS_ITS | Encounter Summary ---
Author Organization [employer] Address [address] [facility] [address] 7t [place] [address] Care Team Providers Care Photo Mask Pattern Generator Name Role Phone Sammy Reilly MD Primary Care Provide r Reason for Visit * Reason Onset Date Comments PA 06/10/2024 Encounter Details Date Type Department Care Team ([facility] st Contact Info) Description 06/10/2024 Telephone [facility] MED[facility]INE 230 [place] [address] Sammy Reilly MD 230 [place] [address] PA Social History Tobacco Use Types Packs/Day [...] the past 12 months, has t he Loop, gas, oil or water [employer] threatened to shut off services in your [...] 1:00 PM EDT Office Visit [facility] MEDICINE [address] [place] [address] Messi Mccollum MD [address] [place] [address] 10/14/2024 2:15 PM EDT Telemedicine [facility] [address] [place] [address] Sammy Reilly MD [address] [place] [address] documented as of this encounter Goals Goal [...] documented as of this encounter Care Teams Photo Mask Pattern Generator Relationship Specialty Start Date End Date Sammy Reilly MD [address] [place] [address] PCP - General Internal Medicine 12/23/13 [employer] 04/08/22 Tj Larose MD Helicopter Mechanic Nephrology 04/10/24 documented as of this encounter
--- OUTSIDE RECORDS SUMMARY | 2024-07-21 17:00 | XMS_ITS | Clinical Summary ---
Author Organization [facility] Address [address] [place] [address] Phone Care Team Providers Care Wet Pour Supervisor Name Role Phone Unavailable Primary Care [...] Encounters Date Type Department Care Team Description 07/12/2024 Treatment [facility] [address] [place] [phone] Tj Larose MD 07/05/2024 Treatment [facility] [address] [place] [address] Tj Larose MD 07/01/2024 Treatment [facility] [address] [address] Clive Lange MD 06/24/2024 Treatment [facility] [address] [place] [address] Tj Larose MD 06/19/2024 Treatment [facility] [address] [place] [address] Tj Larose MD 06/07/2024 Treatment [facility] [address] [place] [address] Tj Larose MD 06/05/2024 Treatment [facility] [address] [address] Tj Larose MD 05/10/2024 Treatment [facility] [address] [address] Tj Larose MD 05/08/2024 Treatment [facility] [address] [address] Tj Larose MD 05/01/2024 Treatment [facility] [address] [address] Clive Lange MD 04/26/2024 Treatment [facility] [address] [address] Tj Larose MD from Last 3 Months Family History [...] Procedure Name Priority Date/Time Associated Diagnosis Comments SPECIAL CHEMISTRY Routine 12/29/2021 10: 00 AM EDT from Last 3 Months or Most Recently Relevant to Health Maintenance Results * SPECIAL CHEMISTRY (12/29/2021 10:00 AM EDT) Hemoglobin A1C 5.1 4.8 - 5.9 % [facility] SPECTRA PVNMA 12/29/2021 10:0 0 AM EDT 12/30/2021 8:33 AM EDT Narrative APS SPECTRA PVNMA - 12/29/2021 10:00 AM EDT Unless otherwise specified, test(s) performed at: [facility], [address] [place] [address] LUBRICATOR GRANULATOR: John Salcido M.D. For any questions, please call customer service at FREQUENCY:QUARTERLY Resulting Agency Comment Specimen source: Blood Miguel López MD LAB BLOOD BANK TEST ORDERABLES Final Result [facility]PECTRA PVNMA from Last 3 Months or Most Recently Relevant to Health Maintenance Insurance [address] [place] [address] ([id number]) [address] [place] [id number] [facility] ([id number])
--- OUTSIDE RECORDS SUMMARY | 2024-07-21 17:00 | XMS_ITS | Clinical Summary ---
Author Organization [facility] Address [address] [place] [address] Care Team Providers Care Provider Relations Coordinator Name Role Phone Sammy Strickland MD Primary [...] 04/07/2022 Active Alcohol Swabs 70 % PadsIndications:[place] respiratory failure with hypoxia (HCC) Use as directed. 100 Pad 04/07/2022 Active Insulin Syringe-Needle U-100 31G X 5/16 0.3 ML MiscIndications:[place] respiratory failure with hypoxia (HCC) Please check [...] Inactivated Comments 03/27/2022 6:52 AM Care Teams Provider Relations Coordinator Relationship Specialty Start Date End Date Sammy Strickland MD [address] [place] [address] [place] [address] PCP - General 03/27/22
--- OUTSIDE RECORDS SUMMARY | 2024-07-21 17:00 | XMS_ITS | Encounter Summary ---
Author Organization [facility] Address [address] [place] [address] Phone Care Team Providers Care Blueprinting And Photocopy Supervisor Name Role Phone Unavailable Primary Care Provider Unavailabl e Encounter Details Date Type Department Care Team (Late st Contact Info) Description 07/18/2022 Telephone [facility] [address] [place] [address] Concepción Cruz [place] Social History [...]
--- OUTSIDE RECORDS SUMMARY | 2024-07-21 17:00 | XMS_ITS | Encounter Summary ---
Author Organization [employer] Address [address] [facility] [facility] [address] 7t [place] [address] Care Team Providers Care Baker Head Name Role Phone Sammy Reilly MD Primary Care Provide r Encounter Details Date Type Department Care Team (Latest Contact Info) Description 07/11/2024 1:00 PM EST Telemedicine [facility] MEDICINE 230 [place] [address] Messi Mccollum MD 230 [place] [address] Uncomplicated opioid dependence (CMS/HCC) Social History Tobacco [...] the past 12 months, has t he [employer], gas, oil or water [employer] threatened to shut off services in your [...] as of this encounter Progress Notes * Messi Mccollum MD - 07/11/2024 1:00 PM EST Patient ID: Cruz Muller is here today for Opioid Dependence RV. Patient on current Suboxone dose of16/4 mg on a 2 week schedule. Induction date: 09/26/17. Patient actively enrolled in behavioral health services, therapist Florentino. D/C from Dr. Orosco for psych due to missing appt. NIRANJAN HUSSEIN reviewed by provider. LFTs done 10/19/23 PCP: Dr. Strickland, last seen 03/11/24 06/20/24 Cannot void/dialysis Here today with a new RESPIRATORY THERAPY MANAGER, Jessica. 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 Recent hospitalization. States [place]. Home ~ 2 weeks. Doing better. Still with severe constipation and rectal prolapse. Surgery finally scheduled for 07/03. Smokes-does not say how much. No alcohol or substance use. ------ As above. Reports no substance use or alcohol. In view of upcoming surgery (07/03) will see in 3 weeks@1. I agreed to continue seeing her @ 1p.m. Today 07/11/24 Tele visit due to pain from rectal prolapse making it hard to walk. Her RESPIRATORY THERAPY MANAGER, Jessica is with her. VNA q a.m., sometimes returns in the afternoon. Surgeon didn't surgery for rectal prolapse because of all her chronic conditions before she saw herPCP, Dr. Strickland. They have a tele-visit and appointment with him next Sunday Not smoking much, 1 cigarette daily, maybe a bit more. Has not smoked yet today (1 p.m.) No substance use or alcohol. Chronic constipation. Uncomplicated opioid dependence ([facility]/HCC) Tele visit due to pain from rectal prolapse making it hard to walk. Her RESPIRATORY THERAPY MANAGER, Jessica is with her. VNA q a.m., sometimes returns in the afternoon. Surgeon didn't surgery for rectal prolapse because of all her chronic conditions before she saw herPCP, Dr. Strickland. They have a tele-visit and appointment with him next Sunday Not smoking much, 1 cigarette daily, maybe a bit more. Has not smoked yet today (1 p.m.) No substance use or alcohol. Chronic constipation. As above. Reminded of her appointment with Dr. Strickland. F/U 4 weeks. Assessment/Plan Diagnoses and all orders for this visit: Uncomplicated opioid dependence (CMS/HCC) - buprenorphine-naloxone (Suboxone) 12-3 MG per sublingual film; Place 1 Film under the tongue Onceper day for 28 days. documented in this encounter Plan of Treatment Upcoming Encounters Date Type Department Care Team (Late st Contact Info) Description 08/08/2024 1:00 PM EDT Office Visit [facility] [address] [place] [address] Messi Mccollum MD [address] [place] [address] [phone] 10/14/2024 2:15 PM EDT Telemedicine [address] [phone] Sammy Reilly MD [address] [place] [address] [phone] documented as of this encounter Goals Goal [...] documented as of this encounter Care Teams Baker Head Relationship Specialty Start Date End Date Sammy Reilly MD [address] [place] [address] [phone] PCP - General Internal Medicine 12/23/13 [employer] 04/08/22 Tj Larose MD Door Manager Nephrology 04/10/24 documented as of this encounter
--- OUTSIDE RECORDS SUMMARY | 2024-07-21 17:00 | XMS_ITS | Encounter Summary ---
Author Organization [email or web address] Address [address] [facility] 7t [place] [address] Care Team Providers Care Electrical Engineer Mep Name Role Phone Sammy Reilly MD Primary Care Provide r Reason for Visit * Reason Comments Med Refill Encounter Details Date Type Department Care Team ([facility] st Contact Info) Description 10/21/2023 Refill [facility] MEDICINE 230 [place], [place] [phone] Sammy Reilly MD 230 [place] [address] Chronic obstructive pulmonary disease, unspecified COPD type [...] Description 08/08/2024 1:00 PM EDT Office Visit [facility] MEDICINE [address] [place] [address] Messi Mccollum MD [address] [place] [address] 10/14/2024 2:15 PM EDT Telemedicine [facility]INE [address] [place] [address] Sammy Reilly MD 230 [place] [address] documented as of this encounter Goals Goal [...] documented as of this encounter Care Teams Electrical Engineer Mep Relationship Specialty Start Date End Date Sammy Reilly MD [address] [place] [address] PCP - General Internal Medicine 12/23/13 [employer] 04/08/22 Tj Larose MD Insulation Blower Nephrology 04/10/24 documented as of this encounter
--- OUTSIDE RECORDS SUMMARY | 2024-07-21 17:00 | XMS_ITS | Encounter Summary ---
Author Organization [employer] Address [address] [facility] [address] [address] 7t [place] [address] Care Team Providers Care Heater Mechanic Name Role Phone Sammy Reilly MD Primary Care Provide r Reason for Visit * Reason Comments Med Refill Encounter Details Date Type Department Care Team (Late st Contact Info) Description 10/23/2023 Refill [facility] [address] [place], [place] [phone] Sammy Reilly MD [address] [place] [address] Constipation due to opioid therapy Social History [...] Description 08/08/2024 1:00 PM EDT Office Visit [facility] MEDICINE [address] [place] [address] Messi Mccollum MD [address] [place] [address] 10/14/2024 2:15 PM EDT Telemedicine [facility] MEDICINE [address] [place] [address] Sammy Reilly MD [address] [place] [address] documented as of this encounter Goals Goal [...] documented as of this encounter Care Teams Heater Mechanic Relationship Specialty Start Date End Date Sammy Reilly MD 230 [place] [address] PCP - General Internal Medicine 12/23/13 [employer] 04/08/22 Tj Larose MD Aerial Lineman Nephrology 04/10/24 documented as of this encounter
--- OUTSIDE RECORDS SUMMARY | 2024-07-21 17:00 | XMS_ITS | Clinical Summary ---
Author Organization [facility] Address [address] [place] [address] Care Team Providers Care Pattern Chain Maker Supervisor Name Role Phone Micheal Irvin MD Primary Care Provider [phone] Social History Tobacco Use Types Packs/Day Years Used Date Smoking Tobacco: Never Assessed Comments Unknown Sex and Gender Information Value Date Recorded Sex Assigned at Not on file Legal Sex Female 2:31 PM EST Gender Identity Not on file Sexual Orientation Not on file Plan of Treatment Health Maintenance Due Date Last Done Comments Breast Cancer Screening 1955 DTaP,Tdap,and Td Vaccines (1 - Tdap) 1975 Pneumococcal Vaccine: 50+ Ye ars (1 of 1 - PCV) 2006 Zoster Vaccines (1 of 2) 2006 Colorectal Cancer Screening: Colonoscopy 04/19/2022 Falls Risk [...] patient's age to complete this topic Meningococcal B Vacine Aged Out No lo nger eligible based on patient's age to complete this topic RSV Immunization Patients Un baldo 20 months Aged Out No longer eligible b ased on patient's age to complete this topic Varicella Vaccines Aged Out No longer eligible based on patient's age to complete this topic Care Teams Pattern Chain Maker Supervisor Relationship Specialty Start Date End Date Micheal Irvin MD PCP - General General Surgery 08/25/21
--- OUTSIDE RECORDS SUMMARY | 2024-07-21 17:00 | XMS_ITS | Encounter Summary ---
Author Organization [employer] Address [address] [facility] [address] 7t [place] [address] Care Team Providers Care Banquet Server Name Role Phone Sammy Reilly MD Primary Care Provide r Reason for Visit * Reason Onset Date Comments Appointment Request 07/10/2024 Encounter Details Date Type Department Care Team ([facility] st Contact Info) Description 07/10/2024 Telephone [facility] MEDICINE 230 [place] [address] Sammy Reilly MD 230 [place] [address] Appointment Request Social History Tobacco Use Types [...] t he electric, gas, oil or water [employer] threatened to shut off services in your [...] Encounter - Aracely Christensen MA - 07/10/2024 9:44 AM EST Contacted pt's referral nurse mary to ask when the pt's dialysis ends, there was no answer so I LVM with callback number. LB documented in this encounter Plan of Treatment Upcoming Encounters Date Type Department Care Team (Late st Contact Info) Description 08/08/2024 1:00 PM EDT Office Visit [facility] MEDICINE [address] [place] [phone] Messi Mccollum MD [address] [place] [address] 10/14/2024 2:15 PM EDT Telemedicine [facility] [address] [place] [address] Sammy Reilly MD [address] [place] [address] [phone] documented as of this encounter Goals Goal [...] documented as of this encounter Care Teams Banquet Server Relationship Specialty Start Date End Date Sammy Reilly MD [address] [place] [address] PCP - General Internal Medicine 12/23/13 [employer] 04/08/22 Tj Larose MD Cyber Systems Administrator Nephrology 04/10/24 documented as of this encounter
--- OUTSIDE RECORDS SUMMARY | 2024-07-21 17:00 | XMS_ITS | Encounter Summary ---
Author Organization [employer] Address [address] [facility] [address] 7t [place] [address] Care Team Providers Care Route Delivery Clerk Name Role Phone Sammy Reilly MD Primary Care Provide r Reason for Visit * Reason Onset Date Comments Med Refill 07/08/2024 Encounter Details Date Type Department Care Team ([facility] st Contact Info) Description 07/08/2024 Refill [facility] MEDICINE 230 [place] [address] Jessica Rahman, RN Uncomplicated opioid dependence (CMS/HCC) Social History [...] Description 08/08/2024 1:00 PM EDT Office Visit [facility] MEDICINE [address] [place] [address] Messi Mccollum MD [address] [place] [address] 10/14/2024 2:15 PM EDT Telemedicine [address] [phone] Sammy Reilly MD [address] [place] [address] documented as of this encounter Goals Goal [...] documented as of this encounter Care Teams Route Delivery Clerk Relationship Specialty Start Date End Date Sammy Reilly MD [address] [place] [address] PCP - General Internal Medicine 12/23/13 [employer] 04/08/22 Tj Larose MD Incident Response Manager Nephrology 04/10/24 documented as of this encounter
--- OUTSIDE RECORDS SUMMARY | 2024-07-21 17:00 | XMS_ITS | Encounter Summary ---
Author Organization [facility] Address [address] [facility] 7t [place] [address] Care Team Providers Care Stretch Machine Operator Name Role Phone Sammy Reilly MD Primary Care Provide r Reason for Visit * Reason Comments Med Refill Encounter Details Date Type Department Care Team ([facility] Contact Info) Description 11/10/2022 Refill [facility] MEDICINE 230 [place] [address] Hattie Gonzales MD 230 [place] [address] Social History Tobacco Use Types Packs/Day Years [...] Upcoming Encounters Date Type Department Care Team ([facility] Contact Info) Description 08/08/2024 1:00 PM EDT Office Visit [facility]INE [address] [place] [address] Messi Mccollum MD 230 [place], [place] [phone] 10/14/2024 2:15 PM EDT Telemedicine [facility]INE [address] [place], [place] [phone] Sammy Reilly MD 230 [place], [place] [phone] documented as of this encounter Goals Goal [...] documented as of this encounter Care Teams Stretch Machine Operator Relationship Specialty Start Date End Date Sammy Reilly MD [address] [place] [address] PCP - General Internal Medicine 12/23/13 [employer] 04/08/22 Tj Larose MD Infant Room Teacher Nephrology 04/10/24 documented as of this encounter
--- OUTSIDE RECORDS SUMMARY | 2024-07-21 17:00 | XMS_ITS | Encounter Summary ---
Author Organization [employer] Address [address] 7t [place] [address] Care Team Providers Care Pct Name Role Phone Sammy Reilly MD Primary Care Provide r Encounter Details Date Type Department Care Team ([facility] st Contact Info) Description 07/09/2024 Telephone [facility] MEDICINE 230 [place], [place] [phone] Sammy Reilly MD 230 [place] [address] Social History Tobacco Use Types Packs/Day Years [...] Telephone Encounter - Aracely Christensen MA - 07/09/2024 9:42 AM EST Contacted pt's CULVERT INSTALLER with confirmation of to schedule a 30 min visit with pcp in PE slot but the CULVERT INSTALLER stated that the pt has Dialysis every Sunday and so it will be difficult for her to come to an appt on of those days. CULVERT INSTALLER expressed that she will speak with the other CULVERT INSTALLER that takes careof the pt in the mornings to see what would work best for them. Since the pt's dialysis begins at 10AM in the morning the CULVERT INSTALLER asked if the pt's pcp can see pt for 8:30AM at least and I mentioned thatI wasn't too sure since that is when we open but that I can bring this up to pcp's attention just in osorio. LB documented in this encounter Plan of Treatment Upcoming Encounters Date Type Department Care Team (Late st Contact Info) Description 08/08/2024 1:00 PM EDT Office Visit [facility] MEDICINE 230 [place] [address] Messi Mccollum MD 230 [place] [address] 10/14/2024 2:15 PM EDT Telemedicine [facility] MED[facility]INE 230 [place] [address] Sammy Reilly MD 230 [place], [place] [phone] documented as of this encounter Goals Goal [...] documented as of this encounter Care Teams Pct Relationship Specialty Start Date End Date Sammy Reilly MD [address] [place] [address] PCP - General Internal Medicine 12/23/13 [employer] 04/08/22 Tj Larose MD Java Systems Analyst Nephrology 04/10/24 documented as of this encounter
--- OUTSIDE RECORDS SUMMARY | 2024-07-21 17:00 | XMS_ITS | Patient Health Record ---
Author Organization [facility] Address [address] [place] [address] Care Team Providers Care Station Cook Name Role Phone Marco A Whitehead MD, [...] Esophageal reflux (530.81) Active confirmed Esophageal reflux (597731471) Problem Other chronic nonalcoholic liver disease (571.8) Active confirmed Chronic nonalcoholic liver disease (00348996) Problem Colon cancer screening (Z12.11) Active confirmed 525704217 Problem Gastroesophageal reflux disease without esophagitis (K21.9) Active confirmed 639611646 Problem Hepatitis C virus infection, unspecified chronicity (B19.20) Active confirmed 06391135 Problem Steatohepatitis (K75.81) Active confirmed 082484328 Encounters Encounter Location Date Provider Diagnosis [facility] [address] [place] [phone] 05/15/2024 Joao Schroeder Jr [facility] [address] [place] [phone] 01/17/2024 Joao Schroeder Jr Steatohepatitis K75.81 [facility] [address] [address] 01/18/2024 Joao Schroeder Jr ASSESSMENTS Encounter Date Diagnosis Assessment Notes Treatment Notes Treatment Clinical Notes 01/17/2024 Steatohepatitis (ICD-10 - K75.81) PLAN OF TREATMENT Pending Test Test Name Order Date [facility] 01/17/2024 Next Appt Details Provider Name:Joao cedillo Jr, 09/17/2024 10:40:00 AM, [address] [place] [address], Suite [facility], [place], [address], Insurance Providers Payer Name Payer Address Payer Phone Subscriber Number Group Number Insured Name Patient Relationship to Insured Coverage Start Date Coverage End Date [facility] [address] [place] [address] [id number] BRUCE COBOS Self - patient is the insured MEDICAL (GENERAL) HISTORY Medical History History ICD Code diabetes egd and colonoscopy 07-03-2007 gastritiis GERD Hepatitis C hypertension Constipation Asthma LVH Substance abuse,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
--- OUTSIDE RECORDS SUMMARY | 2024-07-21 17:00 | XMS_ITS | Encounter Summary ---
Author Organization [facility] Address [address] [place] [address] Care Team Providers Care Install And Repair Technician Name Role Phone Sammy Strickland MD Primary Care Provider Encounter Details Date Type Department Care Team [...] on filedocumented in this encounter Care Teams Install And Repair Technician Relationship Specialty Start Date End Date Sammy Strickland MD [address] [place] [address] [place] [address] PCP - General 03/27/22 documented as of this encounter
--- OUTSIDE RECORDS SUMMARY | 2024-07-21 17:00 | XMS_ITS | Encounter Summary ---
Author Organization [employer] Address [address] 7t [place] [address] Care Team Providers Care Poultry Inspector Name Role Phone Sammy Reilly MD Primary Care Provide r Reason for Visit * Reason Comments Med Refill Encounter Details Date Type Department Care Team (Late st Contact Info) Description 06/27/2024 Refill [facility] [address] [place], [place] [phone] Sammy Reilly MD [address] [place] [address] Tobacco use disorder Social History Tobacco Use [...] the past 12 months, has t he [employer], gas, oil or water company threatened to [...] Description 08/08/2024 1:00 PM EDT Office Visit [facility] [address] [place] [phone] Messi Mccollum MD [address] [place] [address] 10/14/2024 2:15 PM EDT Telemedicine [facility] [address] [place] [address] [phone] Sammy Reilly MD [address] [place] [address] documented as of this encounter Goals Goal [...] documented as of this encounter Care Teams Poultry Inspector Relationship Specialty Start Date End Date Sammy Reilly MD [address] [place] [phone] PCP - General Internal Medicine 12/23/13 [email or web address] 04/08/22 Tj Larose MD Grinder Mill Operator Nephrology 04/10/24 documented as of this encounter
--- OUTSIDE RECORDS SUMMARY | 2024-07-21 17:00 | XMS_ITS | Encounter Summary ---
Author Organization [employer] Address [address] 7t [place] [address] Care Team Providers Care Insulation Manager Name Role Phone Sammy Reilly MD Primary Care Provide r Reason for Visit * Reason Onset Date Comments Appointment Request 07/08/2024 Encounter Details Date Type Department Care Team ([facility] st Contact Info) Description 07/08/2024 Telephone [facility] [address] [place] [address] Sammy Reilly MD [address] [place] [address] Appointment Request Social History Tobacco Use Types [...] the past 12 months, has t he [employer] gas, oil or water [employer] threatened to shut off services in your [...] encounter Miscellaneous Notes * Telephone Encounter - Michele Emerson - 07/08/2024 3:58 PM EST Tc from pt AVIONICS SYSTEMS INTEGRATION SPECIALIST stating that pt is requesting apt with PCP due to not being seen in a while and she wants to get checked up. Pt wants to give info to PCP or nurse. Contact pt AVIONICS SYSTEMS INTEGRATION SPECIALIST at [phone] documented in this encounter Plan of Treatment Upcoming Encounters Date Type Department Care Team (Late st Contact Info) Description 08/08/2024 1:00 PM EDT Office Visit [facility]INE [address] [place] [phone] Messi Mccollum MD [address] [place] [address] 10/14/2024 2:15 PM EDT Telemedicine [facility] [address] [place] [phone] Sammy Reilly MD [address] [place] [phone] documented as of this encounter Goals Goal [...] documented as of this encounter Care Teams Insulation Manager Relationship Specialty Start Date End Date Sammy Reilly MD [address] [place] [phone] PCP - General Internal Medicine 12/23/13 [employer] 04/08/22 Tj Larose MD Detail Sergeant Nephrology 04/10/24 documented as of this encounter
--- OUTSIDE RECORDS SUMMARY | 2024-07-21 17:00 | XMS_ITS | Encounter Summary ---
Author Organization [employer] Address [address] [facility] 7t [place] [address] Care Team Providers Care Storage And Backup Administrator Name Role Phone Sammy Reilly MD Primary Care Provide r Reason for Visit * Reason Onset Date Comments Paperwork/Forms 10/22/2023 Encounter Details Date Type Department Care Team ([facility] st Contact Info) Description 10/22/2023 Telephone [facility]INE [address] [place] [address] Sammy Reilly MD 230 [place] [address] Paperwork/Forms Social History Tobacco Use Types Packs/Day [...] powder pack that was prescribe by ER PCP Dr. Strickland documented in this encounter Plan of Treatment Upcoming Encounters Date Type Department Care Team (Late st Contact Info) Description 08/08/2024 1:00 PM EDT Office Visit [facility] MED[facility]INE [address] [place] [phone] Messi Mccollum MD [address] [place] [phone] 10/14/2024 2:15 PM EDT Telemedicine [facility] [address] [place] [phone] Sammy Reilly MD [address] [place] [address] [phone] documented as of this encounter Goals Goal [...] documented as of this encounter Care Teams Storage And Backup Administrator Relationship Specialty Start Date End Date Sammy Reilly MD [address] [place] [phone] PCP - General Internal Medicine 12/23/13 [employer] 04/08/22 Tj Larose MD Guest Room Inspector Nephrology 04/10/24 documented as of this encounter
--- OUTSIDE RECORDS SUMMARY | 2024-07-21 17:00 | XMS_ITS | Encounter Summary ---
Author Organization [employer] Address [address] 7[address] [place] [address] Care Team Providers Care Tripper Name Role Phone Sammy Reilly MD Primary Care Provide r Encounter Details Date Type Department Care Team ([facility] st Contact Info) Description 06/26/2024 Telephone [facility] [address] [place], [place] [phone] Sammy Reilly MD 230 [place] [address] Social History Tobacco Use Types Packs/Day Years [...] the past 12 months, has t he [employer], gas, oil or water company threatened to [...] Description 08/08/2024 1:00 PM EDT Office Visit [facility] [address] [place] [address] [phone] Messi Mccollum MD [address] [place] [address] 10/14/2024 2:15 PM EDT Telemedicine [facility] [address] [place] [address] [phone] Sammy Reilly MD [address] [place] [phone] documented as of this encounter Goals Goal [...] documented as of this encounter Care Teams Tripper Relationship Specialty Start Date End Date Sammy Reilly MD [address] [place] [phone] PCP - General Internal Medicine 12/23/13 [employer] 04/08/22 Tj Larose MD Invas Tech Nephrology 04/10/24 documented as of this encounter
--- OUTSIDE RECORDS SUMMARY | 2024-07-21 17:00 | XMS_ITS | Encounter Summary ---
Author Organization [employer] Address [address] [facility] 7t [place] [address] Care Team Providers Care Buttonhole Facer Name Role Phone Sammy Reilly MD Primary Care Provide r Encounter Details Date Type Department Care Team ([facility] st Contact Info) Description 04/07/2024 Orders Only [facility] [address] [place], [place] [phone] Sebastián Lora MD [address] [place] [address] Social History Tobacco Use Types Packs/Day Years [...] the past 12 months, has t he [employer], gas, oil or water company threatened to [...] 08/08/2024 1:00 PM EDT Office Visit [facility] [address] [place] [address] [phone] Messi Mccollum MD [address] [place] [address] 10/14/2024 2:15 PM EDT Telemedicine [facility] [address] [place] [address] [phone] Sammy Reilly MD [address] [place] [address]85 documented as of this encounter Goals Goal [...] documented as of this encounter Care Teams Buttonhole Facer Relationship Specialty Start Date End Date Sammy Reilly MD [address] [place] [address] PCP - General Internal Medicine 12/23/13 [employer] 04/08/22 Tj Larose MD Clerical Adviser Nephrology 04/10/24 documented as of this encounter
--- OUTSIDE RECORDS SUMMARY | 2024-07-21 17:00 | XMS_ITS ---
Author Organization [facility] Address [address] [place] [address] Care Team Providers Care Electric Blasting Cap Assembler Name Role Phone Marco A Whitehaed MD, Sammy Primary Care Provide r Toma Schroeder Jr, Joao Chua REASON FOR VISIT Patient presents today for ascites Encounters Encounter Location Date Provider Diagnosis [facility] [address] [place] [address] 05/15/2024 Joao Schroeder Jr PLAN OF TREATMENT Next Appt Details Provider Name:Joao cedillo Jr, 09/17/2024 10:40:00 AM, [address], [address], [place], [address],
--- OUTSIDE RECORDS SUMMARY | 2024-07-21 17:00 | XMS_ITS | Encounter Summary ---
Author Organization [employer] Address [address] 7t [place] [address] Care Team Providers Care Brass Burnisher Name Role Phone Sammy Reilly MD Primary Care Provide r Reason for Visit * Reason Onset Date Comments Appointment Request 05/24/2023 Encounter Details Date Type Department Care Team ([facility] st Contact Info) Description 05/24/[address] [facility] [address] [place] [address] Sammy Reilly MD [address] [place] [address] Appointment Request Social History Tobacco Use Types [...] 05/24/2023 11:25 AM EST Tc from patients field care manager calling to request a follow appt with the patients PCP there is no concerns as of right now documented in this encounter Plan of Treatment Upcoming Encounters Date Type Department Care Team (Late st Contact Info) Description 08/08/2024 1:00 PM EDT Office Visit [facility] [address] [place] [phone] Messi Mccollum MD [address] [place] [address] 10/14/2024 2:15 PM EDT Telemedicine [facility] [address] [place] [phone] Sammy Reilly MD [address] [place] [phone] documented as of this encounter Goals Goal [...] documented as of this encounter Care Teams Brass Burnisher Relationship Specialty Start Date End Date Sammy Reilly MD [address] [place] [address]46 PCP - General Internal Medicine 12/23/13 [employer] 04/08/22 Tj Larose MD Dba Developer Nephrology 04/10/24 documented as of this encounter
[2024-07-21 17:24] VITALS: BP 202/93; PULSE 78; RESP 18; O2SAT 100
[2024-07-21 22:01] VITALS: BP 213/87; PULSE 88; RESP 20; TEMP 36.5; O2SAT 100
[2024-07-21] MEDS: Prochlorperazine Edisylate 10 MG/2 ML VIAL IVPUSH (22:07)
--- NOTE | 2024-07-21 22:37 | P.HPHOSP_ITS ---
History of Present Illness Date of Service: 07/21/24 Attending physician on admission: Car Salazar Chief Complaint: Elevated blood pressure Patient is a 69 year old female with ESRD on maintenance hemodialysis on with poor compliance, hypertension, type 2 diabetes mellitus, asthma/COPD, pulmonary hypertension, hypertrophic cardiomyopathy, opioid dependence on buprenorphine, GERD, chronic back pain presents to the emergency department today via EMS for evaluation of elevated blood pressure reads. She was last dialyzed 5 days ago and missed her session on Sunday and is now due for dialysis tomorrow. Her HEAD OF PRECISION TARGETING took a routine blood pressure today and it was reportedly high - in the 220s/100s. She described having a constant headache since last night but denies any associated vision changes, dizziness, chest pain, palpitations, SOB. Initial blood work done in the emergency room revealed a mildly elevated high sensitivity troponin at 51.4 and an elevated BNP at 3561. An assessment for hypertensive urgency with a mild volume overload due to missed dialysis was made and admission requested after case was discussed with on-call double end production grinder from the [employer] [facility] [employer] team Review of Systems 2 Review of Systems: Yes all other systems are reviewed and are negative [facility] Medical History Chronic renal failure Essential hypertension ESRD (end stage renal disease) on dialysis Diabetes mellitus Hemorrhoids that prolapse with straining, but retract spontaneously Hemorrhoids with complication ESRD on dialysis Delirium Sepsis Tachycardia Leukocytosis Fever End stage chronic kidney disease Congestive heart failure with left ventricular dysfunction ESRD (end stage renal disease) Hypertension Pulmonary congestion COVID-19 virus infection Asthma with COPD with exacerbation COVID ESRD (end stage renal disease) Hypertrophic cardiomyopathy Acute exacerbation of chronic obstructive pulmonary disease (COPD) Heart failure with preserved ejection fraction Constipation End stage renal disease on dialysis Ascites Anasarca Ischemic colitis Acute GI bleeding Anemia Dialysis patient, noncompliant Anemia in chronic kidney disease Opioid withdrawal Essential hypertension Family History Other Hypertension Surgical History No pertinent past surgical history Social History Household Members: Family Housing: Apartment Do you presently have visiting nurse or other home services: Yes (vna) Unable to assess alcohol history related to: Unknown Alcohol intake: former Comment: pt in dialysis at this time. Patient Tobacco Use Status: Current everyday Tobacco user Tobacco use type: Cigarette Cigarette Packs Per Day: 2 Cigarettes Per Day: 1 Years Smoked: 50 +/- Smoked in Last 30 Days: No e-Cigarette/Vaping Use: Never Used Second Hand Smoke Exposure: No Use of substances other than those prescribed or required for medical reasons: No Substance Use Type: Marijuana Advance Directives: Yes Advance Directives on File: Yes Advance Directives Date on File: 04/19/23 service: No Current occupational status: disabled Meds Allergies Allergy/AdvReac Type Severity Reaction Status Date / Time No Known Allergies Allergy Verified 07/21/24 14:05 Home Medications ?Medication ?Instructions ?Recorded ?Confirmed ?Last Taken ?Type melatonin 5 mg tablet 5 mg PO BEDTIME PRN Sleep 04/15/21 07/21/24 Unknown History pantoprazole 40 mg tablet,delayed 40 mg PO DAILY@0630 04/15/21 07/21/24 07/21/24 History release aspirin 81 mg tablet,delayed 1 tab PO DAILY 10/11/21 07/21/24 07/21/24 History release albuterol sulfate 90 mcg/actuation 2 puff inhalation Q4H PRN wheezing 01/31/22 07/21/24 Unknown History aerosol inhaler (Ventolin HFA) albuterol sulfate 2.5 mg/3 mL 1 amp inhalation Q6H PRN Shortness 05/08/22 07/21/24 Unknown History (0.083 %) solution for nebulization Of Breath isosorbide dinitrate 30 mg tablet 30 mg PO TID 07/10/22 07/21/24 07/21/24 History calcium acetate(phosphat bind) 667 1,334 mg PO TIDWM 03/13/23 07/21/24 07/21/24 History mg capsule lactulose 10 gram/15 mL oral 10 g PO DAILY PRN constipation 03/13/23 07/21/24 07/21/24 History solution mirtazapine 15 mg tablet 15 mg PO BEDTIME 03/13/23 07/21/24 07/21/24 History acetaminophen 500 mg tablet 500 mg PO TID PRN Pain 10/16/23 07/21/24 Unknown History carvedilol 25 mg tablet 25 mg PO BID 01/28/24 07/21/24 07/21/24 History amlodipine 10 mg tablet 10 mg PO DAILY 04/19/24 07/21/24 07/21/24 History buprenorphine 12 mg-naloxone 3 mg 1 film sublingual DAILY 04/19/24 07/21/24 07/21/24 History sublingual film glucose 4 gram chewable tablet 16 g PO Q15M PRN hypoglycemia 04/19/24 07/21/24 Unknown History sodium zirconium cyclosilicate 10 10 g PO MOWEFR@0900 04/19/24 07/21/24 07/21/24 History gram oral powder packet (Lokelmt) vitamin B comp no.3-folic acid 1 1 tab PO DAILY 04/19/24 07/21/24 07/21/24 History mg-vit C 60 mg-biotin 300 mcg tablet ([facility]) clonidine HCl 0.1 mg tablet 0.1 mg PO TID 07/21/24 07/21/24 Unknown History diclofenac sodium 1 % topical gel 2 g topical BID 07/21/24 07/21/24 07/21/24 History nicotine 14 mg/24 hr daily 1 patch topical DAILY 07/21/24 Unknown History transdermal patch ondansetron HCl 4 mg tablet 4 mg PO Q12H PRN nausea/vomiting 07/21/24 07/21/24 Unknown History trazodone 100 mg tablet 100 mg PO BEDTIME PRN insomnia 07/21/24 07/21/24 Unknown History Physical Exam 2 Vital Signs and Narrative: Vital Signs: Last Vital Signs Temp 97.7 F 07/21/24 22:01 Pulse 88 07/21/24 22:01 Resp 20 07/21/24 22:01 BP 213/87 H 07/21/24 22:01 Pulse Ox 100 07/21/24 22:01 O2 Del Method Room Air 07/21/24 22:01 BMI result Body Mass Index 28.0 General: Well nourished. Awake and alert. In no obvious respiratory distress. Psychiatric: Pleasant, well kempt, cooperative with normal thought process, speech, cognition and affect. HEENT: Normocephalic, atraumatic. No pallor or jaundice. Moist oral mucus membranes. Neck: Supple. No JVD Lungs: Clear to auscultation bilaterally. No rales, rhonchi or wheezes Heart: RRR. Normal s1/s2. No murmurs, rubs or gallops. No peripheral edema. Abdomen: Scaphoid, Soft, non-tender. Normoactive bowel sounds. No visceromegaly. Genitourinary: Deferred Back/Spine/Pelvis: Deferred Skin: Warm, dry, well perfused. Normal turgor. No mottling. Normal capillary refill (< 2 seconds). Neurologic: Awake and alert. Intact speech & cognition. Normal gait & balance. CN II-XII grossly normal. Extremities: Normal muscle bulk, tone and power. No obvious deformities. No peripheral edema. Good peripheral pulses. Results Labs 07/21/24 15:10 07/21/24 15:10 Labs: Laboratory Results - last 24 hr 07/21/24 07/21/24 15:10 15:17 MCV 99.4 H MCH 32.4 MCHC 32.6 RDW 14.6 Plt Count 211 MPV 10.8 Immature Gran % (Auto) 0.4 Neut % (Auto) 81.7 H Lymph % (Auto) 8.6 L [place] % (Auto) 6.0 Eos % (Auto) 2.9 Baso % (Auto) 0.4 Lymph # (Auto) 0.7 L [place] # (Auto) 0.5 Eos # (Auto) 0.2 Baso # (Auto) 0.0 Abs Immat Gran (auto) 0.03 Absolute Neuts (auto) 6.5 Absolute Nucleated RBC 0.000 Nucleated RBC % (auto) 0.0 PT 10.3 L INR 0.9 Anion Gap 18 Estim Creat Clear Calc 7.3 Estimated GFR 6 Random Glucose 105 Calcium 9.5 Magnesium 2.4 Total Bilirubin 0.4 AST 44 H ALT 12 Alkaline Phosphatase 136 H B-Natriuretic Peptide 3461 H Total Protein 7.5 Albumin 3.6 Lipase 10 Influenza Type A (PCR) NEGATIVE Influenza Type B (PCR) NEGATIVE RSV RNA Qual (PCR) NEGATIVE SARS-CoV-2 RNA (RT-PCR) NEGATIVE Imaging Radiologist's Impressions: Impressions Head CT 07/21/24 15:43 IMPRESSION: No acute intracranial process seen. Electronically signed by: Orlando Dozier MD 07/21/2024 04:08 PM [facility] Assessment and Plan (1) Hypertensive urgency: Status: Acute (2) Volume overload: Qualifiers: Hypervolemia type: other Qualified Code(s): E87.79 - Other fluid overload Status: Acute (3) ESRD (end stage renal disease) on dialysis: Status: Chronic (4) Anemia: Qualifiers: Anemia type: due to chronic kidney disease Chronic kidney disease stage: on chronic dialysis Qualified Code(s): N18.6 - End stage renal disease; D63.1 - Anemia in chronic kidney disease; Z99.2 - Dependence on renal dialysis Status: Chronic (5) Dialysis patient, noncompliant: Status: Chronic (6) Elevated troponin: Status: Acute Plan 69 year old female with ESRD on maintenance hemodialysis on / with poor compliance, hypertension, type 2 diabetes mellitus, asthma/COPD, pulmonary hypertension, hypertrophic cardiomyopathy, opioid dependence on buprenorphine, GERD, chronic back pain here with: # Hypertensive Urgency - was noted with elevated blood pressured - 220/110's at home - improved in the ED to 194/81 mmHg - she has not had her evening medications - admit and restart home medications (Carvedilol, Clonidine, Hydralazine, Isosorbide Dinitrate) - encourage compliance with medications # ESRD on HD TTS # Non-compliance with hemodialysis # Volume overload - planned for hemodialysis in the morning - encourage compliance with dialysis # Elevated Troponin I - High sensitivity troponin I elevated at 51.4 - likely due to decreased renal clearance - denies any associated chest pain or shortness of breath - no further work up indicated # Anemia - likely anemia of chronic renal failure - stable - monitor Total time managing care of this patient today: 55 minutes. Quality Stroke Does the patient have a stroke diagnosis?: No VTE Prior VTE?: No VTE Risk Level:: Medical - moderate - high VTE Device Contraindication: N/A - Device Ordered VTE Drug Contraindication: N/A - Med Ordered
--- NOTE | 2024-07-21 22:39 | PHA.MEDREC ---
Addendum entered by Reinier Hou [facility] 07/22/24 07:58: Followed up in morning: Spoke with Mary through remote phlebotomy lab assistant service, was able to get an accurate phone number for Heidy (RN), . Confirmed all medications with Heidy: pt continues to smoke, nicotine patch was removed. Addendum entered by Aby Armas [facility] 07/21/24 22:44: reviewed by [facility], to be followed up on by AM team. Original Note: Pharmacy Consult ? Medication Reconciliation Pharmacy has completed the medication reconciliation. Spoke with patient utilizing phlebotomy lab assistant and patient was not sure the names of her medications even when I tired reading them off to her. She directed us to call one of her family friends Heidy ([phone]) and stated she should be able to help. I called Heidy around [phone] and [phone] without any luck getting in touch but I left a VM and I also tried patients other contact Mary @[phone] and they did not answer either. I utilized claims to confirm med rec and will update in the AM if Heidy or Mary call back.
[2024-07-22 00:18] VITALS: BP 183/86
[2024-07-22] MEDS: Heparin Sodium,Porcine 5,000 UNIT/ML VIAL 5000 UNIT SUBCUT (00:18)
[2024-07-22] MEDS: hydrALAZINE HCl 50 MG TABLET PO (00:18)
[2024-07-22 00:32] VITALS: BP 183/86; PULSE 93
[2024-07-22] MEDS: cloNIDine HCL 0.1 MG TABLET PO (00:32)
[2024-07-22] MEDS: carvediloL 25 MG TABLET PO (00:32)
[2024-07-22 00:33] VITALS: BP 183/86
[2024-07-22] MEDS: Isosorbide Dinitrate 20 MG TABLET PO (00:33)
[2024-07-22] MEDS: Mirtazapine 15 MG TABLET PO (00:37)
[2024-07-22 00:38] VITALS: BP 183/86; PULSE 93; RESP 18; O2SAT 98
[2024-07-22 01:01] VITALS: BP 183/86; PULSE 93; RESP 18; TEMP 36.7; O2SAT 98
--- NOTE | 2024-07-22 01:05 | PM.EVENT ---
Event Note Date of Service: 07/22/24 Event Note: AGAINST MEDICAL ADVICE NOTE As called by patient's nurse and alerted that patient wanted to leave the hospital against medical advice. She does not want to stay for dialysis tomorrow. Her blood pressure is better controlled than it was when she came in. She has no complaints. When arrived in the emergency room, I found all dressed up and ready to leave. The RN had already removed a peripheral IV. I tried to talk to her into staying and getting her dialysis completed and for us to get a better control of blood pressure but she declines all this. Informed of the risk is taking including risk of serious injury or even wish she understands but still refuses to stay. She signed the AMA form and left to get her own ride home. Time Spent With Patient Time: Total time managing care of this patient today _15___ minutes.
--- NOTE | 2024-07-22 01:07 | PM.DS ---
DS: Providers Provider Date of Service: 07/22/24 Date of admission: 07/21/24 21:59 Date of discharge: 07/22/24 Primary care physician: Unknown Physician Admitting clinician: Car Salazar Attending physician on admission: Car Salazar Consults: 07/21/24 22:13 Consult to Nephrology Routine Consulting Provider: Shaun Ardon Reason for consultation: Needs dialysis Has provider been notified: Yes Attending physician on discharge: Car Salazar Discharging clinician: Car Salazar DS: Diagnosis Discharge Diagnosis (1) Hypertensive urgency: Status: Acute (2) Volume overload: Status: Acute (3) ESRD (end stage renal disease) on dialysis: Status: Chronic (4) Anemia: Status: Chronic (5) Dialysis patient, noncompliant: Status: Chronic (6) Elevated troponin: Status: Acute DS: Summary Status at Discharge Functional status at discharge: uses cane/walker Overall status at discharge: other (Not applicable) Time Attestation Total time managing care of this patient today: 30 mintues. Discharge Coordination Time (in mins): 15 Specific discharge activities: Not addressed at this time Quality: Safe Use of Opioids Does Pt have an Active Cancer Diagnosis on the Problem List?: No Quality: Stroke Does the patient have a stroke diagnosis?: No Physical Exam Vital Signs: Vital Signs: Last Vital Signs Temp 98.0 F 07/22/24 01:01 Pulse 93 07/22/24 01:01 Resp 18 07/22/24 01:01 BP 183/86 H 07/22/24 01:01 Pulse Ox 98 07/22/24 01:01 O2 Del Method Room Air 07/22/24 01:01 BMI result Body Mass Index 28.0 Not performed as patient not cooperative. DS: Data Data Completed and Pending Completed studies during hospitalization [Text1]: Procedures Assistance with Respiratory Ventilation, Less than 24 Consecutive Hours, Continuous Positive Airway Pressure (05/29/24) Excision of Left Kidney, Percutaneous Approach, Diagnostic (02/25/21) Excision of Right Kidney, Percutaneous Approach, Diagnostic (10/22/20) Fluoroscopy of Superior Vena Cava using Low Osmolar Contrast, Guidance (08/07/22) Insertion of Endotracheal Airway into Trachea, Via Natural or Artificial Opening (10/12/21) Insertion of Infusion Device into Right Atrium, Percutaneous Approach (08/07/22) Insertion of Infusion Device into Superior Vena Cava, Percutaneous Approach (04/17/23) Insertion of Tunneled Vascular Access Device into Chest Subcutaneous Tissue and Fascia, Percutaneous Approach (04/17/23) Performance of Urinary Filtration, Intermittent, Less than 6 Hours Per Day (05/29/24) Removal of Totally Implantable Vascular Access Device from Trunk Subcutaneous Tissue and Fascia, Open Approach (08/07/22) Respiratory Ventilation, 24-96 Consecutive Hours (10/12/21) Transfusion of Nonautologous Red Blood Cells into Peripheral Vein, Percutaneous Approach (02/25/21) Ultrasonography of Superior Vena Cava, Guidance (04/17/23) Labs on day of discharge: Laboratory Results - last 24 hr 07/21/24 07/21/24 15:10 15:17 WBC 8.0 RBC 3.24 L Hgb 10.5 L Hct 32.2 L MCV 99.4 H MCH 32.4 MCHC 32.6 RDW 14.6 Plt Count 211 MPV 10.8 Immature Gran % (Auto) 0.4 Neut % (Auto) 81.7 H Lymph % (Auto) 8.6 L Lumpkin % (Auto) 6.0 Eos % (Auto) 2.9 Baso % (Auto) 0.4 Lymph # (Auto) 0.7 L Lumpkin # (Auto) 0.5 Eos # (Auto) 0.2 Baso # (Auto) 0.0 Abs Immat Gran (auto) 0.03 Absolute Neuts (auto) 6.5 Absolute Nucleated RBC 0.000 Nucleated RBC % (auto) 0.0 PT 10.3 L INR 0.9 Sodium 135 Potassium 4.4 Chloride 98 Carbon Dioxide 23 Anion Gap 18 BUN 31 H Creatinine 6.39 H* Estim Creat Clear Calc 7.3 Estimated GFR 6 Random Glucose 105 Calcium 9.5 Magnesium 2.4 Total Bilirubin 0.4 AST 44 H ALT 12 Alkaline Phosphatase 136 H Troponin I High Sens 51.4 H* B-Natriuretic Peptide 3461 H Total Protein 7.5 Albumin 3.6 Lipase 10 Influenza Type A (PCR) NEGATIVE Influenza Type B (PCR) NEGATIVE RSV RNA Qual (PCR) NEGATIVE SARS-CoV-2 RNA (RT-PCR) NEGATIVE Discharge Plan Discharge Patient Disposition: Left Against Medical Advice Referrals: Physician,Unknown J [Primary Care Provider] - 1 Week Discharge Medications: No Action pantoprazole 40 mg Tablet,Delayed Release (Dr/Ec) 40 mg PO DAILY@0630 melatonin 5 mg Tablet 5 mg PO BEDTIME PRN (Reason: Sleep) aspirin 81 mg tablet,delayed release (DR/EC) 1 tab PO DAILY albuterol sulfate [Ventolin HFA] 90 mcg/actuation HFA aerosol inhaler 2 puff INHALATION Q4H PRN (Reason: wheezing) albuterol sulfate 2.5 mg /3 mL (0.083 %) solution for nebulization 1 amp inhalation Q6H PRN (Reason: Shortness Of Breath) isosorbide dinitrate 30 mg Tablet 30 mg PO TID Rx Instructions: allow nitrate-free interval of 12-14 hrs per 24-hr period Elle-Sharifa Rx 1-60-300 mg-mg-mcg tablet 1 tab PO DAILY buprenorphine-naloxone 12-3 mg film 1 film sublingual DAILY Lokelma 10 gram powder in packet 10 g PO MOWEFR@0900 amlodipine 10 mg tablet 10 mg PO DAILY glucose 4 gram tablet,chewable 16 g PO Q15M PRN (Reason: hypoglycemia) hydralazine 50 mg Tablet 50 mg PO TID Qty: 270 0RF Protocol: Hold for SBP< HOLD for SBP < : 90 trazodone 100 mg tablet 100 mg PO BEDTIME PRN (Reason: insomnia) diclofenac sodium 1 % gel 2 g topical BID clonidine HCl 0.1 mg tablet 0.1 mg PO TID nicotine 14 mg/24 hr patch 24 hour 1 patch topical DAILY ondansetron HCl 4 mg tablet 4 mg PO Q12H PRN (Reason: nausea/vomiting) mirtazapine 15 mg tablet 15 mg PO BEDTIME calcium acetate(phosphat bind) 667 mg capsule 1,334 mg PO TIDWM lactulose 10 gram/15 mL solution 10 g PO DAILY PRN (Reason: constipation) acetaminophen 500 mg tablet 500 mg PO TID PRN (Reason: Pain) carvedilol 25 mg tablet 25 mg PO BID Discharge Orders: Discharge Order (Routine); Ordered 07/22/24 Ordered By: Car Salazar Stand Alone Forms: Against Medical Advice Print Language: Lao Care Plan Goals: Encouraged to comply with Hemodialysis Health Concerns: Hypertensive Urgency Non-compliant with Hemodialysis Plan of Treatment: Encouraged to resume home medications and go for Hemodialysis as scheduled Assessment: Patient left AMA
== END 2024-07-22 16:31 | disposition left against medical advice (07) ==
LOC: HO.ED 17:17 → HO.EDOVER 22:16
PROVIDERS: Physician Assistant Medical; Admitting Provider Internal Medicine; Emergency Provider Emergency Medicine; PCP Internal Medicine; Visit Provider Internal Medicine
DX: I16.0 Hypertensive urgency (principal); E87.79 Other fluid overload; E11.22 Type 2 diabetes mellitus with diabetic chronic kidney disease; I13.2 Hypertensive heart and chronic kidney disease with heart failure and with stage 5 chronic kidney disease, or end stage renal disease; I50.89 Other heart failure; N18.6 End stage renal disease; D63.1 Anemia in chronic kidney disease; K59.00 Constipation, unspecified; R79.89 Other specified abnormal findings of blood chemistry; R51.9 Headache, unspecified; R14.0 Abdominal distension (gaseous); K62.89 Other specified diseases of anus and rectum; K52.9 Noninfective gastroenteritis and colitis, unspecified; R06.02 Shortness of breath; Z99.2 Dependence on renal dialysis; Z91.158 Patient's noncompliance with renal dialysis for other reason; Z53.29 Procedure and treatment not carried out because of patient's decision for other reasons; Z79.899 Other long term (current) drug therapy; Z03.818 Encounter for observation for suspected exposure to other biological agents ruled out
CPT/HCPCS: 0241U; 70450; 71046; 74176; 80053; 83690; 83735; 83880; 84484; 85025; 85610; 93005; 96372; 96374; 99221; 99285; J0737; J1644

== ENCOUNTER → 2024-07-21 14:40 | Outpatient (BNV) | payer OTHER, SELFPAY | PROVIDERS: Emergency Provider Emergency Medicine; Visit Provider Internal Medicine Cardiovascular Disease | DX: R94.31 Abnormal electrocardiogram [ECG] [EKG] (principal); I10 Essential (primary) hypertension | CPT/HCPCS: 93010 ==

== ENCOUNTER → 2024-07-21 14:40 | Outpatient (BNV) | payer OTHER, SELFPAY | PROVIDERS: Emergency Provider Emergency Medicine; Visit Provider Radiology Diagnostic Radiology | DX: R09.89 Other specified symptoms and signs involving the circulatory and respiratory systems (principal); R51.9 Headache, unspecified; K51.218 Ulcerative (chronic) proctitis with other complication | CPT/HCPCS: 70450; 71046; 74176 ==

== ENCOUNTER → 2024-07-21 21:59 | Outpatient (BNV) | payer OTHER, SELFPAY | PROVIDERS: Admitting Provider Internal Medicine; Emergency Provider Emergency Medicine; Visit Provider Internal Medicine | DX: I16.0 Hypertensive urgency (principal); N18.6 End stage renal disease; Z99.2 Dependence on renal dialysis; Z91.158 Patient's noncompliance with renal dialysis for other reason; D63.1 Anemia in chronic kidney disease; E87.79 Other fluid overload; R77.8 Other specified abnormalities of plasma proteins | CPT/HCPCS: 99222; 99238; 99499 ==

== ENCOUNTER 2024-09-10 08:10 | Outpatient (REF) | payer OTHER, SELFPAY ==
--- NOTE | ~2024-09-10 | XR_ITS ---
CLINICAL HISTORY: M25.569 - Pain in unspecified knee Three views of each knee including standing AP views of both knees. Comparison: None Findings: Right knee: Bones intact. No dislocations. Severe tricompartmental degenerative change. No joint effusion. No radiopaque foreign body. Diffuse vascular calcification. Left knee: Bones intact. No dislocations. Severe tricompartmental degenerative change. No joint effusion. No radiopaque foreign body. Diffuse vascular calcification. IMPRESSION: Severe tricompartmental degenerative change bilaterally. This document has been electronically signed by: Yaniv Arechiga MD on 09/13/2024 08:48:37
--- OUTSIDE RECORDS SUMMARY | 2024-09-11 08:25 | XMS_ITS | Clinical Summary ---
Author Organization [facility] Address [address] [place] [address] Phone Care Team Providers Care Shop Estimator Name Role Phone Sammy Vicente MD Primary [...] Upcoming Encounters Date Type Department Care Team ([facility] Contact Info) Description 09/29/2024 2:45 PM EDT Consult Orthopedic Surgery - [place] [address] [phone] Santhosh Patricia, JESSIE [address] [address] Health Maintenance Due Date Last Done Comments [...] fective 2021-Present) Name:Cruz Muller Relation to Subscriber:Self Name:Cruz Muller Payer ID:[id number] Group ID:[id number] Type:Not on file Address: [place] [address] [place] [address] Care Teams Shop Estimator Relationship Specialty Start Date End Date Sammy Vicente MD [address] [place] [address] [phone] PCP - General Internal Medicine 08/01/24
--- OUTSIDE RECORDS SUMMARY | 2024-09-11 08:25 | XMS_ITS | Encounter Summary ---
Author Organization [facility] Address [address] [place] [phone] Phone Care Team Providers Care Manager Electronic Name Role Phone Unavailable Primary Care Provider Unavailabl e Encounter Details Date Type Department Care Team ([facility] st Contact Info) Description 09/06/2024 Treatment [facility]. [address] [address] Tj Larose MD [address] [address] End stage renal disease; Dependence [...] care for end stage renal disease. Attending Purchasing Manager: TJ LAROSE MD Dialysis Location: [facility] Schedule: Shift: 2 OVERVIEW Patient is stable. COMMENTS: Note in dialysis group home manager ADEQUACY ASSESSMENT Kt/V, Natural Log 1.57 [...]
--- OUTSIDE RECORDS SUMMARY | 2024-09-11 08:25 | XMS_ITS | Encounter Summary ---
Author Organization [facility] Address [address] [place] [address] Phone Care Team Providers Care Inner Tube Tuber Machine Operator Name Role Phone Unavailable Primary Care Provider Unavailabl e Encounter Details Date Type Department Care Team (Late st Contact Info) Description 07/18/2022 Telephone [facility] [address] [place] [address] Concepción Cruz [place] Social History Tobacco [...] Miscellaneous Notes * Telephone Encounter - Concepción Curz [place] - 07/18/2022 1:55 PM EST Harish [...]
--- OUTSIDE RECORDS SUMMARY | 2024-09-11 08:25 | XMS_ITS | Encounter Summary ---
Author Organization [facility] Address [address] [place] [address] Care Team Providers Care Draw Tender Name Role Phone Sammy Strickland MD Primary Care Provider [phone] Encounter Details Date Type Department Care Team [...] on filedocumented in this encounter Care Teams Draw Tender Relationship Specialty Start Date End Date Sammy Strickland MD [address] [place] [address] [place] [address] PCP - General 03/27/22 documented as of this encounter
--- OUTSIDE RECORDS SUMMARY | 2024-09-11 08:25 | XMS_ITS | Clinical Summary ---
Author Organization [facility] Address [address] [place] [address] Care Team Providers Care Events Traffic Controller Name Role Phone Sammy Strickland MD Primary [...] 12/20/2023 COVID-19 Vaccine (2023- season) 2024 Insurance [facility] Advance Directives * Full Code (Latest Code Status on File) Date Activated Date Inactivated Comments 03/27/2022 6:52 AM Care Teams Events Traffic Controller Relationship Specialty Start Date End Date Sammy Strickland MD [address] [place] [address] [place] [address] PCP - General 03/27/22
--- OUTSIDE RECORDS SUMMARY | 2024-09-11 08:25 | XMS_ITS | Encounter Summary ---
Author Organization [facility] Address [address] [place] [address] Phone Care Team Providers Care Regulatory Product Manager Name Role Phone Unavailable Primary Care Provider Unavailabl e Encounter Details Date Type Department Care Team (Late st Contact Info) Description 11/10/2021 Office Communication [facility] [address] [place] [address] Sigrid Hollingsworth, CELIO Social History [...]
--- OUTSIDE RECORDS SUMMARY | 2024-09-11 08:25 | XMS_ITS | Clinical Summary ---
Author Organization [facility] Address [address] [address] Phone Care Team Providers Care Newspaper Manager Name Role Phone Unavailable Primary Care [...] Treatment [facility] [address] [phone] Tj Larose MD End stage renal disease; Dependence on renal dialysis 09/06/2024 Treatment [facility] [address] [phone] Tj Larose MD End stage renal disease; Dependence on renal dialysis 08/30/2024 Treatment [facility] [address] [phone] Tj Larose MD End stage renal disease; Dependence on renal dialysis 08/19/2024 Treatment [facility] [address] [phone] Tj Larose MD End stage renal disease; Dependence on renal dialysis 08/14/2024 Treatment [facility] [address] [phone] Tj Larose MD End stage renal disease; Dependence on renal dialysis 08/05/2024 Treatment [facility] [address] [phone] Tj Larose MD End stage renal disease; Dependence on renal dialysis 07/31/2024 Treatment [facility] [address] [phone] Tj Larose MD End stage renal disease; Dependence on renal dialysis 07/26/2024 Treatment [facility] [address] [phone] Tj Larose MD End stage renal disease; Dependence on renal dialysis 07/24/2024 Orders Only [facility] [address] [phone] Tj Larose MD 07/12/2024 Treatment [facility] [address] [phone] Tj Larose MD 07/05/2024 Treatment [facility] [address] [phone] Tj Larose MD 07/01/2024 Treatment [facility] [address] [phone] Clive Lange MD 06/24/2024 Treatment [facility] [address] [phone] Tj Larose MD 06/19/2024 Treatment [facility] [address] [phone] Tj Larose MD from Last 3 Months [...] EDT us Tj Larose MD LAB HISTORICA [id number] RESULTS Final Result [facility] [address] [place] [address] * (ABNORMAL) Hemoglobin (09/06/2024 3:00 AM EDT) Only the most recent of2 resultswithin the time period is included. Pathologist [facility] Hgb 10.6(L) 11.2 - 15.7 g/dL [facility] Hemoglobin x 3 31.8(L) 33.6 - 47.1 g/dL [facility] 09/06/2024 3:00 AM EDT 09/09/2024 12:57 PM EDT us Tj Larose MD LAB BLOOD ORDERABLES Final Result Performing Organization Address [facility]/ZIP Co de Phone Number [facility] [address] [place] [address] * LIH (08/21/2024 3:00 AM EDT) Only the most recent of2 resultswithin the time period is included. Pathologist [facility] Lipemia Normal Normal [facility] Icterus Normal Normal [facility] Hemolysis Normal Normal [facility] 08/21/2024 3:00 AM EDT 08/23/2024 1:28 PM EDT us Tj Larose MD LAB HISTORICA [id number] RESULTS Final Result Performing Organization Address City/[facility]/ZIP Co de Phone Number [facility] [address] [place] [address] * (ABNORMAL) Kt/V Natural Log, URR (08/21/2024 3:00 AM EDT) Only the most recent of2 resultswithin the time period is included. Pathologist [facility] Treatment Time 182 min [facility] Pre-Weight, lb [...] PM EDT Tj Larose MD LAB HISTORICA [id number] RESULTS Final Result Performing Organization Address [facility] de Phone Number [facility] [address] [place] [address] * Calcium Phosphorus Product, Adjusted (08/21/2024 3:00 [...] PM EDT Tj Larose MD LAB HISTORICA [id number] RESULTS Final Result Performing Organization Address [facility] de Phone Number [facility] [address] [place] [address] * Hepatitis B Surface Ag w/Reflex Confirmation (08/21/2024 3:00 AM EDT) Only the most recent of2 resultswithin the time period is included. Hep B Surface Antigen Negative Negative [facility] 08/21/2024 3:00 AM EDT 08/23/2024 1:28 PM EDT Tj Larose MD LAB BLOOD ORDERABLES Final Result Performing Organization Address City/[facility] de Phone Number [facility] [address] [place] [address] * (ABNORMAL) TSAT (08/21/2024 3:00 AM EDT) Only the most recent of2 resultswithin the time period is included. [facility] Iron 54 50 - 170 ug/dL [facility] Transferrin 148(L) 250 - 380 mg/dL [facility] TIBC 207(L) 211 - 406 ug/dL [facility] Iron Saturation (TSat) 26 22 - 52 % [facility] 08/21/2024 3:00 AM EDT 08/23/2024 1:28 PM EDT Tj Larose MD LAB BLOOD ORDERABLES Final Result Performing Organization Address [facility] de Phone Number [facility] [address] [place] [address] * (ABNORMAL) CBC and Differential (08/21/2024 3:00 AM EDT) Only the most recent of2 resultswithin the time period is included. [facility] DIFFERENTIAL MANUAL, 2 Not Indicated [facility] [...] BLOOD ORDERABLES Final Result Performing Organization Address City/[facility]/ZIP Co de Phone Number [facility] [address] [place] [address] * ALT (08/21/2024 3:00 AM EDT) Only the most recent of2 resultswithin the time period is included. ALT (SGPT) 14 10 - 49 U/L [facility] 08/21/2024 3:00 AM EDT 08/23/2024 1:28 PM EDT Tj Larose MD LAB BLOOD ORDERABLES Final Result Performing Organization Address [facility] Co de Phone Number [facility] [address] [place] [address] * AST (08/21/2024 3:00 AM EDT) Only the most recent of2 resultswithin the time period is included. AST (SGOT) 24 <34 U/L [facility] 08/21/2024 3:00 AM EDT 08/23/2024 1:28 PM EDT us Tj Larose MD LAB BLOOD ORDERABLES Final Result Performing Organization Address City/[facility] Co de Phone Number [facility] [address] [place] [address] * Protein, total (08/21/2024 3:00 AM EDT) Only the most recent of2 resultswithin the time period is included. Total Protein 7.2 6.4 - 8.9 g/dL [facility] 08/21/2024 3:00 AM EDT 08/23/2024 1:28 PM EDT Tj Larose MD LAB BLOOD ORDERABLES Final Result Performing Organization Address [facility] Co de Phone Number [facility] [address] [place] [address] * (ABNORMAL) Alkaline phosphatase (08/21/2024 3:00 AM EDT) Only the most recent of2 resultswithin the time period is included. Alkaline Phosphatase 144(H) 46 - 116 U/L [facility] 08/21/2024 3:00 AM EDT 08/23/2024 1:28 PM EDT Tj Larose MD LAB BLOOD ORDERABLES Final Result Performing Organization Address [facility] de Phone Number [facility] [address] [place] [address] * (ABNORMAL) PTH, Intact (08/21/2024 3:00 AM [...] BLOOD ORDERABLES Final Result Performing Organization Address [facility] Co de Phone Number [facility] [address] [place] [address] * (ABNORMAL) Magnesium (08/21/2024 3:00 AM EDT) Only the most recent of2 resultswithin the time period is included. Magnesium 2.9(H) 1.9 - 2.7 mg/dL [facility] 08/21/2024 3:00 AM EDT 08/23/2024 1:28 PM EDT us Tj Larose MD LAB BLOOD ORDERABLES Final Result Performing Organization Address [facility] de Phone Number [facility] [address] [place] [address] * (ABNORMAL) Lactate dehydrogenase (08/21/2024 3:00 AM EDT) Only the most recent of2 resultswithin the time period is included. LDH 316(H) 120 - 246 U/L [facility] 08/21/2024 3:00 AM EDT 08/23/2024 1:28 PM EDT us Tj Larose MD LAB BLOOD ORDERABLES Final Result Performing Organization Address [facility] de Phone Number [facility] [address] [place] [address] * Hemoglobin A1c (08/21/2024 3:00 AM EDT) [...] BLOOD ORDERABLES Final Result Performing Organization Address [facility] de Phone Number [facility] [address] [place] [address] * (ABNORMAL) Glucose, random (08/21/2024 3:00 AM EDT) Only the most recent of2 resultswithin the time period is included. Glucose 121(H) 74 - 109 mg/dL [facility] 08/21/2024 3:00 AM EDT 08/23/2024 1:28 PM EDT Tj Larose MD LAB BLOOD ORDERABLES Final Result Performing Organization Address [facility] de Phone Number [facility] [address] [place] [address] * (ABNORMAL) Ferritin (08/21/2024 3:00 AM EDT) Only the most recent of2 resultswithin the time period is included. Ferritin 1,524(H) 10 - 291 ng/mL [facility] 08/21/2024 3:00 AM EDT 08/23/2024 1:28 PM EDT Tj Larose MD LAB BLOOD ORDERABLES Final Result Performing Organization Address [facility] de Phone Number [facility] [address] [place] [address] * (ABNORMAL) Creatinine, serum (08/21/2024 3:00 AM EDT) Only the most recent of2 resultswithin the time period is included. Creatinine 6.45(H) 0.55 - 1.02 mg/dL [facility] 08/21/2024 3:00 AM EDT 08/23/2024 1:28 PM EDT us Tj Larose MD LAB BLOOD ORDERABLES Final Result Performing Organization Address [facility] de Phone Number [facility] [address] [place] [address] * (ABNORMAL) Bilirubin, total (08/21/2024 3:00 AM EDT) Only the most recent of2 resultswithin the time period is included. Total Bilirubin <0.2(L) 0.3 - 1.2 mg/dL [facility] 08/21/2024 3:00 AM EDT 08/23/2024 1:28 PM EDT Tj Larose MD LAB BLOOD ORDERABLES Final Result [facility] [address] [place] [address] * (ABNORMAL) Lipid panel (08/21/2024 3:00 AM [...] BLOOD ORDERABLES Final Result Performing Organization Address City/[facility] Co de Phone Number [facility] [address] [place] [address] * (ABNORMAL) Electrolyte panel (08/21/2024 3:00 AM [...] BLOOD ORDERABLES Final Result Performing Organization Address [facility] de Phone Number [facility] [address] [place] [address] from Last 3 Months Insurance [facility] ([id number]) [place] [phone] [facility] ([id number]) [place] [phone]
--- OUTSIDE RECORDS SUMMARY | 2024-09-11 08:25 | XMS_ITS | Encounter Summary ---
Author Organization [facility] Address [address] [place] [phone] Phone Care Team Providers Care Talent Advisor Name Role Phone Unavailable Primary Care Provider Unavailabl e Encounter Details Date Type Department Care Team ([facility] st Contact Info) Description 09/09/2024 Treatment [facility]. [address] [phone] Tj Larose MD [address] [phone] End stage renal disease; Dependence [...] 09/09/2024 12:00 AM EDT BASIC NOTE Patient: Cruz Muller : 1955 Note Author: TJ LAROSE MD Service Date: 09/09/2024 This patient was personally seen for a basic visit as part of routine monthly dialysis care for end stage renal disease. Attending Soda Jerker: TJ LAROSE MD Dialysis Location: [facility] Schedule: Shift: 2 OVERVIEW Patient is stable. COMMENTS: Note in dialysis catering sales manager ADEQUACY ASSESSMENT Kt/V, Natural Log 1.57 [...]
== END 2024-09-10 08:11 | disposition home or self-care (01) ==
LOC: HO.HOSX 08:10
PROVIDERS: Visit Provider Physician Assistant
DX: M17.0 Bilateral primary osteoarthritis of knee (principal); M25.562 Pain in left knee; M25.561 Pain in right knee
CPT/HCPCS: 20610; 73562; 99212; J1010; J2003

== ENCOUNTER 2024-09-10 14:56 | Outpatient (AMB) | payer OTHER, SELFPAY ==
--- NOTE | 2024-09-10 15:10 | A.OFFVIS_ITS ---
Intake Visit Reasons: OV-B/L knee OA Intake Note: Heidy is a 69 year old female who presents today for a follow up of her bilateral knee OA. She was last seen by Dr. Mcgovern on 02/29/24 where both of her knees were injected. FYI- patient was not considered surgical candidate so they were booked w/ PA Allergies No Known Allergies Allergy (Verified 09/10/24 16:10) HPI HPI OV-B/L knee OA: Details: Ms. Muller is a 69-year-old female who presents to the office today for bilateral knee osteoarthritis. She was last seen with Dr. Mcgovern on 02/29/2024 where she received bilateral knee cortisone injections. At that time the patient was also educated that she is not a candidate for knee replacement. She presents to the office today looking for repeat injections. [facility] Medical History Chronic renal failure Essential hypertension ESRD (end stage renal disease) on dialysis Diabetes mellitus Hemorrhoids that prolapse with straining, but retract spontaneously Hemorrhoids with complication ESRD on dialysis Delirium Sepsis Tachycardia Leukocytosis Fever End stage chronic kidney disease Congestive heart failure with left ventricular dysfunction ESRD (end stage renal disease) Hypertension Pulmonary congestion COVID-19 virus infection Asthma with COPD with exacerbation COVID ESRD (end stage renal disease) Hypertrophic cardiomyopathy Acute exacerbation of chronic obstructive pulmonary disease (COPD) Heart failure with preserved ejection fraction Constipation End stage renal disease on dialysis Ascites Anasarca Ischemic colitis Acute GI bleeding Anemia Dialysis patient, noncompliant Anemia in chronic kidney disease Opioid withdrawal Essential hypertension Surgical History No pertinent past surgical history Family History Other Hypertension Social History Household Members: Family Housing: Apartment Do you presently have visiting nurse or other home services: Yes (vna) Unable to assess alcohol history related to: Unknown Alcohol intake: former Comment: pt in dialysis at this time. Patient Tobacco Use Status: Current everyday Tobacco user Tobacco use type: Cigarette Cigarette Packs Per Day: 2 Cigarettes Per Day: 1 Years Smoked: 50 +/- e-Cigarette/Vaping Use: Never Used Second Hand Smoke Exposure: No Substance Use Type: Marijuana Advance Directives Date on File: 04/19/23 service: No Current occupational status: disabled Review of Systems Const All systems reviewed & are unremarkable except as noted in HPI and below Physical Exam Extrem Other: 10-120 ROM bilateral kenes TTP medial joint line bilaterally Office Procedures AMB Joint Injection/Aspiration Joint Injection/Aspiration Primary Site: right knee Prep: site was prepped using aseptic technique, ethochloride spray was applied and injection warnings given Injected: 40 mg of, DepoMedrol, with 8 mL of (2% plain lidocaine) and in the joint Approach Used: anterolateral Procedure: other (Patient had a difficult time tolerating the cortisone injection due to pain. Right knee was injected. Left knee was not attempted due to pain.) Coding 77812 - Large joint Procedure code (CPT) selection complete Assessment & Plan Assessment & Plan (1) Primary localized osteoarthritis of knees, bilateral: Code(s): M17.0 - Bilateral primary osteoarthritis of knee Category: Medical Plan The patient was offered a cortisone injection in bilateral knees with 40 mg of DepoMedrol. The patient was explained the risks, benefits, and alternatives to receiving this injection. After receiving consent for the injection, I injected the right knee 1st while in the office today. The patient did not tolerated the procedure well. Reporting pain. Therefore, the left knee injection was deferred. Due to the patient?s history of diabetes, they were instructed to monitor their blood glucose level. The patient was informed that they could see a rise in their numbers and if the numbers became too high, they were instructed to call their PCP. The patient was also informed that they could have facial flushing as a side effect of the injection, but this will pass. Follow-up will be p.r.n., or sooner if needed X-rays of the right knee which were obtained while in the office today and were reviewed by me, Krystal Piedra PA-C, revealed significant osteoarthritis bilaterally. Orders: Orders XR knee RT 3V Today M25.569 - Pain in unspecified knee Coding Level of Care Code Est Pt Level 3 (46860) Diagnoses Primary localized osteoarthritis of knees, bilateral M17.0 CPT Codes Coding - 76730 Large joint: 90670 - Large joint ([id number])
--- OUTSIDE RECORDS SUMMARY | 2024-09-10 17:46 | XMS_ITS | Encounter Summary ---
Author Organization [employer] Address [address] [place] [address] Care Team Providers Care Lock Operator Name Role Phone Sammy Reilly MD Primary Care Provide r Reason for Visit * Reason Comments Med Refill Encounter Details Date Type Department Care Team ([facility] st Contact Info) Description 05/02/2023 Refill [facility] [address] [place] [address] Messi Mccollum MD [address] [place] [address] Uncomplicated opioid dependence (CMS/HCC) Social History Tobacco [...] Care Team (Late st Contact Info) Description 09/26/2024 1:00 PM EDT Office Visit [facility] [address] [place] [phone] Messi Mccollum MD [address] [place] [phone] 10/14/2024 2:15 PM EDT Telemedicine [facility] [address] [place] [phone] Sammy Reilly MD [address] [place] [address] [phone] documented as of this encounter Goals Goal Patient Goal Type Associated Problems Recent Progress Patient-Stated? Author Check and record your blood sugars as directed Blood Pressure No Jimbo Burris PharmJnoathan Short-term: Promote adherence to treatment regimen General No Jimbo Burris PharmD Take your medication every day Lifestyle No Jimbo Burris PharmD documented as of this encounter Visit Diagnoses Diagnosis Uncomplicated opioid dependence (CMS/HCC) documented in this encounter Additional Health Concerns Assessment Noted Time PHQ-9 Depression Total Score: 11 023 9:59 AM EDT documented as of this encounter Care Teams Lock Operator Relationship Specialty Start Date End Date Sammy Reilly MD [address] [place] [phone] PCP - General Internal Medicine 12/23/13 [employer] 04/08/22 Tj Larose MD Plaster Tender Nephrology 04/10/24 documented as of this encounter
--- OUTSIDE RECORDS SUMMARY | 2024-09-10 17:46 | XMS_ITS | Encounter Summary ---
Author Organization [employer] Address [address] [facility] 7t [place] [address] Care Team Providers Care Rug Backing Stenciler Name Role Phone Sammy Reilly MD Primary Care Provide r Reason for Visit * Reason Onset Date Comments Referral 09/14/2022 Encounter Details Date Type Department Care Team ([facility] st Contact Info) Description 09/14/2022 Telephone [facility] [address] [place] [address] Sammy Reilly MD [address] [place] [address] Referral Social History Tobacco Use Types Packs/Day [...] 09/14/2022 2:57 PM EDT T/C returned to [facility] re below message. Heidy stated pt was [...] appt. Heidy stated Chelly who is her MEDICAL ENGINEER is the only who fully care for her and keeps her going to appts, she also has VNA that come 2x a day and an PINION SORTER that comes to check up on her as well. Heidy verbalized understanding and denied having any further questions or concerns at this time. * Telephone Encounter - Brandee Christie - 09/14/2022 10:32 AM EDT Tc from Heidy Bahena Nurse with [facility] requesting a status on other two referral for Pulmonary and GI. Please contact Heidy at [phone] documented in this encounter Plan of Treatment Upcoming Encounters Date Type Department Care Team (Late st Contact Info) Description 09/26/2024 1:00 PM EDT Office Visit [facility] [address] [place] [phone] Messi Mccollmu MD [address] [place] [phone] 10/14/2024 2:15 PM EDT Telemedicine [facility] [address] [place] [phone] Sammy Reilly MD [address] [place] [phone] documented as of this encounter Visit Diagnoses Diagnosis Uncomplicated opioid dependence (CMS/HCC) documented in this encounter Care Teams Rug Backing Stenciler Relationship Specialty Start Date End Date Sammy Reilly MD [address] [place] [address] PCP - General Internal Medicine 12/23/13 [employer] 04/08/22 Tj Larose MD Spa Experience Coordinator Nephrology 04/10/24 documented as of this encounter
--- OUTSIDE RECORDS SUMMARY | 2024-09-10 17:46 | XMS_ITS | Encounter Summary ---
Author Organization [employer] Address [address] 7[address] [place] [address] Care Team Providers Care Electronic Tech Name Role Phone Sammy Reilly MD Primary Care Provide r Reason for Visit * Reason Comments Med Refill Encounter Details Date Type Department Care Team ([facility] st Contact Info) Description 04/20/2023 Refill [facility] [address] [place], [place] [phone] Name, MD Tye [address] [place] [address] Hypertension secondary to other renal disorders Social [...] Description 09/26/2024 1:00 PM EDT Office Visit [facility] [address] [place] [phone] Messi Mccollum MD [address] [place] [phone] 10/14/2024 2:15 PM EDT Telemedicine [facility] [address] [place] [phone] Sammy Reilly MD [address] [place] [address] [phone] documented as of this encounter Goals Goal [...] documented as of this encounter Care Teams Electronic Tech Relationship Specialty Start Date End Date Sammy Reilly MD [address] [place] [phone] PCP - General Internal Medicine 12/23/13 [email or web address] 04/08/22 Tj Larose MD Picked Edge Sewing Machine Operator Nephrology 04/10/24 documented as of this encounter
--- OUTSIDE RECORDS SUMMARY | 2024-09-10 17:46 | XMS_ITS | Encounter Summary ---
Author Organization [employer] Address [address] 7[address] [place] [address] Care Team Providers Care Wireless Sales Consultant Name Role Phone Sammy Reilly MD Primary Care Provide r Reason for Visit * Reason Comments Med Refill Encounter Details Date Type Department Care Team ([facility] st Contact Info) Description 04/25/2023 Refill [facility] [address] [place], [place] [phone] Name, MD Tye [address] [place] [address] Hypertension secondary to other renal disorders; Primary [...] Description 09/26/2024 1:00 PM EDT Office Visit [facility] [address] [place] [address] [phone] Messi Mccollum MD [address] [place] [address] [phone] 10/14/2024 2:15 PM EDT Telemedicine [facility] [address] [place] [phone] Sammy Reilly MD [address] [place] [address] [phone] documented as of this encounter Goals Goal [...] documented as of this encounter Care Teams Wireless Sales Consultant Relationship Specialty Start Date End Date Sammy Reilly MD [address] [place] [address] [phone] PCP - General Internal Medicine 12/23/13 [employer] 04/08/22 Tj Larose MD Implementation Project Manager Nephrology 04/10/24 documented as of this encounter
--- OUTSIDE RECORDS SUMMARY | 2024-09-10 17:46 | XMS_ITS | Encounter Summary ---
Author Organization [facility] Address [address] [place] [address] Phone Care Team Providers Care Karate Instructor Name Role Phone Unavailable Primary Care Provider Unavailabl e Encounter Details Date Type Department Care Team (Late st Contact Info) Description 11/10/2021 Office Communication [facility] [address] [place] [address] Sigrid Hollingsworth, CELIO Social History [...]
--- OUTSIDE RECORDS SUMMARY | 2024-09-10 17:46 | XMS_ITS | Encounter Summary ---
Author Organization [employer] Address [address] [facility] 7t [place] [address] Care Team Providers Care Chargeback Analyst Name Role Phone Sammy Reilly MD Primary Care Provide r Reason for Visit * Reason Comments Med Refill Encounter Details Date Type Department Care Team (Late Contact Info) Description 02/12/2023 Refill [facility] [address] [place], [place] [phone] Margarita Rob ANP [address] [place], [place] [phone] Social History Tobacco Use Types Packs/Day Years [...] Upcoming Encounters Date Type Department Care Team ([facility] Contact Info) Description 09/26/2024 1:00 PM EDT Office Visit [facility] [address] [place] [address] Messi Mccollum MD [address] [place] [phone] 10/14/2024 2:15 PM EDT Telemedicine [facility] [address] [place], [place] [phone] Sammy Reilly MD [address] [place], [place] [phone] documented as of this encounter Goals Goal [...] documented as of this encounter Care Teams Chargeback Analyst Relationship Specialty Start Date End Date Sammy Reilly MD [address] [place] [phone] PCP - General Internal Medicine 12/23/13 [employer] 04/08/22 Tj Larose MD Liquor Grinding Mill Operator Nephrology 04/10/24 documented as of this encounter
--- OUTSIDE RECORDS SUMMARY | 2024-09-10 17:46 | XMS_ITS | Encounter Summary ---
Author Organization [facility] Address [address] [place] [phone] Phone Care Team Providers Care String Top Sealer Name Role Phone Unavailable Primary Care Provider Unavailabl e Encounter Details Date Type Department Care Team ([facility] st Contact Info) Description 09/09/2024 Treatment [facility]. [address] [phone] Tj Larose MD [address] [phone] End stage renal disease; Dependence on renal dialysis Social History Tobacco Use Types Packs/Day Years [...] Dialysis Note - Tj Larose MD - 09/09/2024 12:00 AM EDT BASIC NOTE Patient: Curz Muller : 1955 Note Author: JT LAROSE MD Service Date: 09/09/2024 This patient was personally seen for a basic visit as part of routine monthly dialysis care for end stage renal disease. Attending Fur Blower Operator: TJ LAROSE MD Dialysis Location: [facility] Schedule: Shift: 2 OVERVIEW Patient is stable. COMMENTS: Note in dialysis manager web ADEQUACY ASSESSMENT Kt/V, Natural Log 1.57 (08/21/24) 1.56 (07/24/24) 1.84 (03/27/24) UREA REDUCTION RATIO (%) 74 (08/21/24) 74 (07/24/24) 78 (03/27/24) BUN 42 (08/21/24) 35 (07/24/24) 46 (03/27/24) BUN Post Dialysis 11 (08/21/24) 9 (07/24/24) 10 (03/27/24) Creatinine 6.45 (08/21/24) 6.68 (07/24/24) 7.75 (03/27/24) Bicarbonate (CO2) 25 (08/21/24) 25 (07/24/24) 24 (04/03/24) Sodium 129 (08/21/24) 134 (07/24/24) 132 (04/03/24) ANEMIA ASSESSMENT Hgb 11.1 (08/21/24) 10.4 (08/09/24) 10.0 (07/24/24) Iron Saturation (TSat) 26 (08/21/24) 31 (07/24/24) 19 (03/27/24) Ferritin 1,524 (08/21/24) 1,571 (07/24/24) Iron 54 (08/21/24) 56 (07/24/24) 42 (03/27/24) TIBC 207 (08/21/24) 182 (07/24/24) 218 (03/27/24) MCV 102.3 (08/21/24) 102.6 (07/24/24) 103.2 (03/27/24) Platelets 263 (08/21/24) 229 (07/24/24) 239 (03/27/24) BMM ASSESSMENT Calcium, Adjusted Total 9.3 08/21/24 9.0 07/24/24 9.5 03/27/24 Calcium 9.3 08/21/24 9.0 07/24/24 9.5 03/27/24 Phosphorus, Serum 4.0 08/21/24 4.2 07/24/24 5.0 03/27/24 Ca*PO4 37.2 08/21/24 37.8 07/24/24 47.5 03/27/24 PTH, Intact 154 08/21/24 190 07/24/24 Magnesium 2.9 08/21/24 2.3 07/24/24 2.3 03/27/24 Alkaline Phosphatase 144 08/21/24 126 07/24/24 184 03/27/24 NUTRITION ASSESSMENT Albumin 4.3 08/21/24 4.0 07/24/24 4.3 03/27/24 Potassium 4.7 08/21/24 4.4 07/24/24 5.8 04/03/24 Hemoglobin A1C 5.5 08/21/24 ADDITIONAL LABS White Blood Cells 8.3 (08/21/24) 7.2 (07/24/24) 9.5 (03/27/24) Cholesterol 144 (08/21/24) HDL 50 (08/21/24) LDL-Calc 75 (08/21/24) Triglycerides 94 (08/21/24) ADDITIONAL COMMENT COMMENTS: 02/28/24 stable 04/08/24 doing ok 07/01/24 stable Signed by: TJ LAROSE MD on 09/09/2024 at 12:15:40 PM documented in this encounter Plan of Treatment Not on file documented as of this encounter Visit Diagnoses Diagnosis End stage renal disease Dependence on renal dialysis documented in this encounter
--- OUTSIDE RECORDS SUMMARY | 2024-09-10 17:46 | XMS_ITS | Encounter Summary ---
Author Organization [facility] Address [address] [facility] 7t [place] [address] Care Team Providers Care Water And Gas Helper Name Role Phone Sammy Reilly MD Primary Care Provide r Reason for Visit * Reason Comments Med Refill Encounter Details Date Type Department Care Team (Late Contact Info) Description 05/30/2022 Refill [facility] [address] [place] [address] Sammy Reilly MD [address] [place] [phone] Social History Tobacco Use Types Packs/Day Years [...] Encounters Date Type Department Care Team ([facility] Contact Info) Description 09/26/2024 1:00 PM EDT Office Visit [facility] [address] [place] [phone] Messi Mccollum MD [address] [place], [place] [phone] 10/14/2024 2:15 PM EDT Telemedicine [facility] [address] [place] [address] Sammy Reilly MD [address] [place], [place] [phone] documented as of this encounter Visit Diagnoses Not on filedocumented in this encounter Care Teams Water And Gas Helper Relationship Specialty Start Date End Date Sammy Reilly MD [address] [place] [address] [phone] PCP - General Internal Medicine 12/23/13 [employer] 04/08/22 Tj Larose MD Service Consultant Nephrology 04/10/24 documented as of this encounter
--- OUTSIDE RECORDS SUMMARY | 2024-09-10 17:46 | XMS_ITS | Encounter Summary ---
Author Organization [facility] Address [address] [facility] 7t [place] [address] Care Team Providers Care Loft Worker Name Role Phone Sammy Reilly MD Primary Care Provide r Reason for Visit * Reason Comments Med Refill Encounter Details Date Type Department Care Team ([facility] Contact Info) Description 02/09/2023 Refill [facility] [address] [place] [address] Lois Garrett MD [address] [place], [place] [phone] Primary insomnia Social History Tobacco Use Types [...] Upcoming Encounters Date Type Department Care Team ([facility] Contact Info) Description 09/26/2024 1:00 PM EDT Office Visit [facility] MED[facility]INE [address] [place] [phone] Messi Mccollum MD [address] [place] [address] [place] [address] 10/14/2024 2:15 PM EDT Telemedicine [facility] [address] [facility] [place], [place] [phone] Sammy Reilly MD [address] [place] [address] documented as of this encounter Goals Goal [...] documented as of this encounter Care Teams Loft Worker Relationship Specialty Start Date End Date Sam[place] [address] PCP - General Internal Medicine 12/23/13 [employer] 04/08/22 Tj Larose MD Lab Specialist Nephrology 04/10/24 documented as of this encounter
--- OUTSIDE RECORDS SUMMARY | 2024-09-10 17:46 | XMS_ITS | Encounter Summary ---
Author Organization [employer] Address [address] [place] [address] Care Team Providers Care Blood Bank Laboratory Professional Name Role Phone Sammy Reilly MD Primary Care Provide r Reason for Visit * Reason Comments Med Refill Encounter Details Date Type Department Care Team (Late st Contact Info) Description 11/21/2023 Refill [facility] [address] [place], [place] [phone] Sammy Reilly MD [address] [place] [phone] Chronic obstructive pulmonary disease, unspecified COPD type (CMS/HCC) Social History Tobacco Use Types Packs/Day Years Used Date Smoking Tobacco: Some Days Cigarettes 0.3 1.3 Started: 2023 Passive Smoke Exposure: Current Smokeless [...] Description 09/26/2024 1:00 PM EDT Office Visit [facility] [address] [place] [phone] Messi Mccollum MD [address] [place] [phone] 10/14/2024 2:15 PM EDT Telemedicine [facility] [address] [place] [phone] Sammy Reilly MD [address] [place] [phone] documented as of this encounter Goals Goal [...] documented as of this encounter Care Teams Blood Bank Laboratory Professional Relationship Specialty Start Date End Date Sammy Reilly MD [address] [place] [address] PCP - General Internal Medicine 12/23/13 [employer] 04/08/22 Tj Larose MD Wall Insulation Sprayer Nephrology 04/10/24 documented as of this encounter
--- OUTSIDE RECORDS SUMMARY | 2024-09-10 17:46 | XMS_ITS | Clinical Summary ---
Author Organization [employer] Address [address] [place] [address] Care Team Providers Care Simonizer Name Role Phone Sammy Reilly MD Primary Care Provide r Allergies No known active allergies Medications * This document contains information received from the source organization and may not represent a complete record from that organization. sennosides (Senokot) 8.6 MG tablet TAKE 2 TABLETS BY MOUTH AT BEDTIME 022 Active Spacer/Aero-Hol ding Chambers (Compact Space Chamber) deviceIndicatio ns:German Space chamber use with albuterol pump Active Blood Glucose Monitoring Suppl (FreeStyle Lite) device Inject under the skin if needed. Freestyle lite meter kit Test 1 times by intradermal route every day Active Alcohol Swabs (SM Alcohol Prep) 70 % pads USE DIRECTED 022 Active Banophen 25 MG capsule TAKE [...] 5 capsules in one day 023 Active hydrocortisone (Anusol-HC) 2.5 % rectal cream APPLY RECTALLY TWICE DAILY NEEDED 30 g 023 Active Blood Pressure Monitoring (Omron 3 Series BP Monitor) deviceIndicatio ns:Primary hypertension USE TO CHECK BLOOD PRESSURE ONCE A WEEK 1 each 024 Active B Bwgmdgl-R-Hgakp Acid (Elle-Sharifa Rx) 1 MG tablet TAKE 1 TABLET BY MOUTH EVERY DAY 90 tablet 3 024 Active Aspirin Adult Low Strength 81 MG EC tablet TAKE 1 TABLET BY MOUTH EVERY DAY 30 tablet 11 024 Active TRUEplus Lancets 33G misc TEST BLOOD SUGAR FIVE TIMES DAILY 100 each 11 Active glucose 4 g chewable tablet Chew 4 tablets (16 g) if needed for low blood sugar. 50 tablet 12 024 2024 Active Acetaminophen Extra Strength 500 MG tabletIndicatio ns:Chronic midline low back pain without sciatica TAKE 1 TABLET BY MOUTH EVERY 8 HOURS NEEDED FOR PAIN 30 tablet 9 024 Active ondansetron (Zofran) 4 MG tabletIndicatio ns:Nausea TAKE 1 TABLET BY MOUTH EVERY TWELVE HOURS FOR NAUSEA AND VOMITING 20 tablet 9 024 Active pantoprazole (ProtoNix) 40 MG EC tabletIndicatio ns:Chronic gastritis without bleeding, unspecified gastritis type TAKE 1 TABLET BY MOUTH EVERY MORNING. DO NOT BREAK, CRUSH, DISSOLVE OR CHEW. 90 tablet 1 024 Active melatonin 5 MG tabletIndicatio ns:Primary insomnia TAKE 1 TABLET BY MOUTH EVERY DAY AT BEDTIME NEEDED FOR SLEEP 30 tablet 3 024 Active lactulose (Chronulac) 10 GM/15ML solutionIndicat ions:Constipati on, unspecified constipation type TAKE 15 ML BY MOUTH EVERY DAY PRN for CONSTIPATION 473 mL 3 025 Active isosorbide dinitrate (Isordil) 30 MG tabletIndicatio ns:Hypertension secondary to other renal disorders TAKE 1 TABLET BY MOUTH THREE TIMES DAILY 90 tablet 2 025 Active FREESTYLE LITE test stripIndication s:Type 2 diabetes mellitus with chronic kidney disease on chronic dialysis, with long-term current use of insulin (CMS/[facility]) Use to check blood sugar 3 times daily 100 strip 3 025 Active nicotine (Nicoderm, Step 2) 14 MG/24HR patchIndication s:Tobacco use disorder APPLY 1 PATCH TOPICALLY TO THE SKIN IN THE MORNING *DO NOT SMOKE WHILE USING PATCH* 28 patch 2 025 Active Diclofenac Sodium 1 % gelIndications: Chronic midline low back pain without sciatica APPLY 2 GRAMS TO AFFECTED AREA(S) TWICE DAILY DIRECTED 100 g 2 025 Active albuterol (Ventolin HFA) 108 (90 Base) MCG/ACT inhalerIndicati ons:Chronic obstructive pulmonary disease, unspecified COPD type (CMS/HCC) INHALE 2 PUFFS BY MOUTH EVERY 4 TO 6 HOURS NEEDED FOR COUGH, WHEEZING, OR SHORTNESS OF BREATH 18 g 3 025 Active albuterol (2.5 MG/3ML) 0.083% nebulizer solutionIndicat ions:Chronic obstructive pulmonary disease, unspecified COPD type (CMS/HCC) INHALE 1 AMPULE USING A NEBULIZER EVERY 6 HOURS NEEDED FOR WHEEZING 90 mL 3 025 Active docusate sodium (Colace) 100 MG capsule Take 1 capsule (100 mg) by mouth Once per day. TAKE 2 CAPSULES BY MOUTH EVERY DAY IN THE MORNING 180 capsule 025 Active polyethylene glycol, PEG, 3350 (Glycolax) 17 GM/SCOOP powder Mix 17g (1 capful) in 8 ounces of water and take by mouth every day 510 g 2 025 Active buprenorphine-n aloxone (Suboxone) 12-3 MG per sublingual filmIndications :Uncomplicated opioid dependence (CMS/HCC) Place 1 Film under the tongue Once per day for 28 days. 1/2 film under tongue twice daily. 28 Film 025 2024 Active mupirocin (Bactroban) 2 % ointmentIndicat ions:Chronic obstructive pulmonary disease, unspecified COPD type (CMS/HCC) APPLY TOPICALLY TO THE AFFECTED AREA(S) THREE TIMES DAILY FOR 10 DAYS 22 g 025 Active amLODIPine (Norvasc) 10 MG tablet Take 1 tablet by mouth Once per day. Active carvedilol (Coreg) 25 MG tablet Take 1 tablet by mouth 2 times daily. 025 Active losartan (Cozaar) 100 MG tablet Take 1 tablet by mouth Once per day. 025 Active traZODone (Desyrel) 100 MG tablet Take 1 tablet by mouth at bedtime. 011 Active Lokelma 10 g packet Take 10 g by mouth. Dissolved 1 packet as directed and take once daily on Sunday, Sunday and Sunday 025 Active cloNIDine (Catapres-TTS) 0.3 MG/24HRIndicati ons:Primary hypertension Place 1 patch on the skin 1 (one) time per week. Remove old patch prior to applying a new one 4 patch 2 025 Active bumetanide (Bumex) 2 MG tablet TAKE 1 TABLET BY MOUTH EVERY DAY 022 2024 Discontinued(M ed list cleanup (will not trigger notification to Pharmacy)) Flovent HFA 110 MCG/ACT inhaler INHALE 1 PUFF BY MOUTH TWICE DAILY 12 g 9 023 2024 Discontinued(M ed list cleanup (will not trigger notification to Pharmacy)) cloNIDine (Catapres) 0.1 MG tablet TAKE 1 TABLET BY MOUTH TWICE DAILY 60 tablet 9 023 2024 Discontinued(M ed list cleanup (will not trigger notification to Pharmacy)) amLODIPine (Norvasc) 5 MG tabletIndicatio ns:Primary hypertension Take 1 tablet (5 mg) by mouth in the morning. 30 tablet 3 024 2024 Discontinued(M ed list cleanup (will not trigger notification to Pharmacy)) neomycin-polymy bin-dexAMETHaso ne (Maxitrol) 0.1 % ointment Apply 1 each to affected eye(s) 2 times daily. Apply to affected eyelids 2x/day. 3.5 g 024 2024 Discontinued(M ed list cleanup (will not trigger notification to Pharmacy)) docusate sodium (Colace) 100 MG capsule TAKE 2 CAPSULES BY MOUTH EVERY DAY IN THE MORNING 180 capsule 024 2024 Discontinued(R eorder (will not trigger notification to Pharmacy)) losartan (Cozaar) 50 MG tablet TAKE 1 TABLET BY MOUTH EVERY DAY IN THE MORNING 30 tablet 3 024 2024 Discontinued(R eorder (will not trigger notification to Pharmacy)) carvedilol (Coreg) 6.25 MG tabletIndicatio ns:Hypertension secondary to other renal disorders TAKE 1 TABLET BY MOUTH TWICE DAILY IN THE MORNING AND IN THE EVENING WITH MEALS 60 tablet 2 024 2024 Discontinued(M ed list cleanup (will not trigger notification to Pharmacy)) polyethylene glycol, PEG, 3350 (Glycolax) 17 GM/SCOOP powder Mix 17g (1 capful) in 8 ounces of water and take by mouth every day 510 g 2 024 2024 Discontinued(R eorder (will not trigger notification to Pharmacy)) mupirocin (Bactroban) 2 % ointmentIndicat ions:Chronic obstructive pulmonary disease, unspecified COPD type (CMS/HCC) APPLY TOPICALLY THREE TIMES DAILY FOR 10 DAYS 22 g 025 2024 Discontinued hydrALAZINE (Apresoline) 50 MG tablet TAKE 1 TABLET BY MOUTH THREE TIMES A DAY 90 tablet 2 025 2024 Discontinued(T herapy completed) buprenorphine-n aloxone (Suboxone) 12-3 MG per sublingual filmIndications :Uncomplicated opioid dependence (CMS/HCC) Place 1 Film under the tongue Once per day for 28 days. Do not start before August 08, 2024. 28 Film 025 2024 Discontinued(R eorder (will not trigger notification to Pharmacy)) losartan (Cozaar) 50 MG tablet Take 1 tablet (50 mg) by mouth in the morning. 30 tablet 3 025 2024 Discontinued(M ed list cleanup (will not trigger notification to Pharmacy)) cloNIDine (Catapres-TTS) 0.3 MG/24HR Place 1 patch on the skin 1 (one) time per week. Remove old patch prior to applying a new one 025 2024 Discontinued(R eorder (will not trigger notification to Pharmacy)) Active Problems Problem Noted Date Diagnosed Date Uncomplicated opioid dependence 09/04/2024 Hepatitis C virus infection, unspecified chronic ity 12/03/2023 Hyperkalemia 10/18/2023 Assessment & Plan (10/18/2023 9:17 AM EDT): Pt recently admitted to [facility] for hyperkalemia. Pt's K improved after Lokelma and HD. Her Losartan was discontinued as well Plan: Repeat BMP Hospital discharge follow-up 10/18/2023 Assessment & Plan (07/15/2024 3:41 PM EST): Pt recently admitted to [facility] from 05/29 until 06/04 after sresented to ER with altered MS and SOB. Found to have hyperkalemia 6.6, HTN, pulmonary edema needing BiPAP support. Undergone emergent dialysis. Also found to have acute pancreatitis with elevated lipase (trended down during hospital stay). Had GI, Nephrology, and Psychiatry consultations while inpatient. Assessment & Plan (10/18/2023 9:17 AM EDT): Pt recently admitted to [facility] 10/16/2023 for hyperkalemia. Pt's K improved after Lokelma and HD. Her Losartan was discontinued as well Plan: Repeat BMP Rectal prolapse 10/18/2023 Assessment & Plan (07/15/2024 4:01 PM EST): Televisit Pt is well known to the office of General surgeon Dr. Edmundo Mendez who last saw her on 06/16/2024 Patient requested a second opinion at [facility] to discuss her options. Pt was seen [...] by Dr. Natalie Thrasher General surgeon at [facility] for a full colonoscopy Assessment & Plan (03/11/2024 9:23 AM EDT): Pt here for a follow up after she was seen again at [facility] ER with c/o rectal prolapse. Pt is [...] basis. Patient requested a second opinion at [facility] [place] [place] [facility] to discuss her options. 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 Patient received HD and improved. Pt was subsequently readmitted to [facility] from 03/26/22 - 03/27/22 for CHF, hypoxia and ESRD Patient admitted at [facility] from 03/27/22 - 04/07/22. ProBNP elevated >70,000 on 03/27. volume status improved after dyalisis on 03/27. ECHO showed EF 45% . Cardiology consult recommended outpt ischemic work up. [facility] Cardiology called pt on 11/14/23 to schedule new patient appt, they LVM and sent letter out to book. [facility] She never went to see fiber artist will refer back Assessment & Plan (10/18/2023 9:34 AM EDT): Pt previously admitted to [facility] from 03/10/22-03/13/22 for further management with a diagnosis of Acute hypoxemic respiratory failure possibly due to fluid overload/ESRD. Patient received HD and improved. Pt was subsequently readmitted to [facility] from 03/26/22 - 03/27/22 for CHF, hypoxia and ESRD Patient admitted at [facility] from 03/27/22 - 04/07/22. ProBNP elevated >70,000 on 03/27. volume status improved after dyalisis on 03/27. ECHO showed EF 45% . Cardiology consult recommended outpt ischemic work up. She never went to see fiber artist will refer back Assessment & Plan (12/28/2022 10:03 AM EDT): Pt previously admitted to [facility] from 03/10/22-03/13/22 for further management with a diagnosis of Acute hypoxemic respiratory failure possibly due to fluid overload/ESRD. Patient received HD and improved. Pt was subsequently readmitted to [facility] from 03/26/22 - 03/27/22 for CHF, hypoxia and ESRD Patient admitted at [facility] from 03/27/22 - 04/07/22. ProBNP elevated >70,000 on 03/27. volume status improved after dyalisis on 03/27. ECHO showed EF 45% . Cardiology consult recommended outpt ischemic work up. Pt Tells me she finally went to see the Cardiac Nurse . 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 Pt has been evaluated for this at [facility] [place] [place] Vascular surgery. last note on record from [...] Pt has been evaluated for this at [facility] [place] [place] V[facility] surgery. last note on record from 01/08/2012 mentioned that this does not offer any major risk and recommended prn f/u Assessment & Plan (12/28/2022 9:50 AM EDT): Pt has a Hx of a 9 mm right renal artery aneurysm seen on most recent CTA on 06/08/2011 but No stenosis. This was done in the ER. Pt has been evaluated for this at [facility] [place] [place] Vascular surgery. last note on record from [...] for a follow up, seen at our [facility] after pt reported 7 days w/o [...] visit today but promised to go to [facility] hospital tomorrow AM. Will request status check next business day (10/02/22) ?? Radha refilled per request, however reviewed med safety and SE Follow up as needed, patient in agreement with plan End-stage renal disease on hemodialysis 04/17/20 Assessment & Plan (07/15/2024 4:15 PM EST): HD /Sunday Assessment & Plan (12/28/2022 9:59 AM EDT): /Sunday Still awaiting AV fistula placement. Posterior subcapsular [...] Encounters Date Type Department Care Team Description 09/04/[address] [address] Demi Esquivel RN 09/03/2024 2:30 PM EDT Office Visit [address] [address] Margarita Rob ANP Hospital discharge follow-up (Primary Dx); Primary hypertension; Type 2 diabetes mellitus with chronic kidney disease on chronic dialysis, with long-term current use of insulin ([facility]); Hyperkalemia; Rectal prolapse; End-stage renal disease on hemodialysis ([facility]); Smoker; Uncomplicated opioid dependence ([facility]) 09/03/[address] [address] Sammy Reilly MD Durable Medical Equipment 09/03/[address] [address] Sammy Reilly MD Call Back Request 09/03/2024 Travel 09/01/[address] [address] Saige De La Cruz, Joaquim Durable Medical Equipment 09/01/2024 Telephone [facility] [address] [place] [phone] Lila Fox MA chart prep 08/29/2024 9:45 AM EDT Office Visit [address] [address] Messi Mccollum MD Uncomplicated opioid dependence (CMS/HCC) (Primary Dx) 08/29/2024 Telephone [facility] [address] [place], [place] [address] Jessica Rahman, RN 08/29/2024 Refill [facility] [address] [place] [address] Sammy Reilly MD Chronic obstructive pulmonary disease, unspecified COPD type (CMS/HCC) 08/29/2024 Telephone [facility] [address] [place], [place] [address] Sammy Reilly MD 08/29/2024 Travel 08/15/2024 Telephone [facility] [address] [place], [place] [address] Sammy Reilly MD FYI 08/13/2024 Telephone [facility] [address] [place], [place] [address] Sammy Reilly MD DME from [facility] 08/12/2024 Telephone [facility] [address] [place] [address] Sammy Reilly MD DME from [facility] 08/11/2024 Refill [facility] [address], [place] [address] Sammy Reilly MD 08/08/2024 Telephone [facility] [address], [place] [address] Sammy Reilly MD Call Back Request 08/05/2024 Refill [facility] [address] [place] [address] Sammy Reilly MD Chronic obstructive pulmonary disease, unspecified COPD type (CMS/HCC) 08/04/2024 Refill [facility] [address], [place] [address] Jessica Rahman, RN Uncomplicated opioid dependence (CMS/HCC) 07/31/2024 Refill [facility] [address], [place] [address] Geena Umana CNM 07/31/2024 [facility]ill [facility] [address] [facility] [place] [address] Sebastián Lora MD Chronic obstructive pulmonary disease, unspecified COPD type ([facility]/HCC) 07/28/2024 Orders Only [facility] [address] [place] [address] Willow Betancourt MD 07/25/2024 Telephone [facility] [address] [facility] [place] [address] Sammy Reilly MD 07/22/2024 Refill [facility] [address] [facility] [place] [address] Sammy Reilly MD Chronic midline low back pain without sciatica 07/18/2024 Refill [facility] [place] [address] Sammy Reilly MD 07/15/2024 3:00 PM EST Telemedicine [facility] [facility] [place] [address] Sammy Reilly MD Rectal prolapse (Primary Dx); Hospital discharge follow-up; Renal artery aneurysm ([facility]); Chronic diastolic congestive heart failure ([facility]); Constipation, unspecified constipation type; Renal cyst, left; End-stage renal disease on hemodialysis ([facility]); Type 2 diabetes mellitus with chronic kidney disease on chronic dialysis, with long-term current use of insulin ([facility]); Chronic pain of both knees 07/15/2024 Travel 07/14/2024 Telephone [facility] [address] [facility] [place] [address] Sammy Reilly MD DME [facility] 07/11/2024 1:00 PM EST Telemedicine [facility] [place] [address] Messi Mccollum MD Uncomplicated opioid dependence ([facility]) 07/11/2024 Telephone [facility] [address] [facility] [place] [address] Sammy Reilly MD Chart Prep Tele 07/11/2024 Travel 07/10/2024 Telephone [facility] [address], [place] [address] Sammy Reilly MD Appointment Confirmation 07/10/2024 Telephone [facility] [address], [place] [address] Sammy Reilly MD Appointment Request 07/09/2024 Telephone [facility] [address], [place] [address] Sammy Reilly MD 07/08/2024 Telephone [facility] [address] [place] [address] Sammy Reilly MD Appointment Request 07/08/2024 Refill [facility] [address] [place] [address] Jessica Rahman, RN Uncomplicated opioid dependence ([facility]/HCC) 06/27/2024 Refill [facility] [address] [place] [address] Sammy Reilly MD Tobacco use disorder 06/26/2024 Telephone [facility] [address] [place] [address] Sammy Reilly MD 06/23/2024 Refill [facility] [address] [place] [address] Humberto Joseph RN Uncomplicated opioid dependence ([facility]/HCC) 06/20/2024 10:00 AM EST Office Visit [facility] [address] [place] [address] Messi Mccollum MD Uncomplicated opioid dependence ([facility]/HCC) (Primary Dx) 06/20/2024 Travel 06/18/2024 Refill [facility] [address] [place] [address] Hattie Gonzales MD Hypertension secondary to other renal disorders 06/17/2024 Telephone [facility] [address], [place] [address] Jessica Rahman, CELIO 06/16/2024 Refill [facility] [address] [place] [address] Lashawn Bang, RN Type 2 diabetes mellitus with chronic kidney disease on chronic dialysis, with long-term current use of insulin ([facility]) 06/16/2024 Refill [facility] [address] [place] [address] Messi Mccollum MD Uncomplicated opioid dependence ([facility]) 06/16/2024 Telephone [facility] [address] [place] [address] Demi Esquivel, CELIO 06/16/2024 Refill [facility] [address] [place] [address] Demi Esquivel RN Uncomplicated opioid dependence ([facility]) 06/16/2024 Telephone [facility] [address] [place] [address] Demi Esquivel RN 06/12/2024 Telephone [facility] [address] [place] [address] Sammy Reilly MD No Show from Last 3 Months Immunizations Name Administration [...] Answer Date Recorded Patient Health Questionnaire-9 Score 13 09/03/2024 Patient Health Questionnaire-9 Score 13 09/03/2024 Last PHQ-9: Questionnaire Data Not on file 0 09/03/2024 Housing Stability Answer Date Recorded What is [...] Date Recorded Patient Health Questionnaire-2 Score 4 09/03/2024 Internet Access Answer Date Recorded Internet Access [...] Sign Reading Time Taken Comments Blood Pressure 160/60 09/03/2024 2:42 PM EDT Pulse 80 09/03/2024 2:42 PM EDT Temperature 36.7 ??C (98 ??F) 06/11/2024 4:44 PM EST Respiratory Rate 16 09/03/2024 2:42 PM EDT Oxygen Saturation 96% 04/07/2024 2:47 PM EST Inhaled Oxygen Concentration - - Weight 64 kg (141 lb) 09/03/2024 2:42 PM EDT Height 149.9 cm (4' 11 ) 09/03/2024 2:42 PM EDT Body Mass Index 28.48 09/03/2024 2:42 PM EDT Plan of Treatment Upcoming Encounters Date Type Department Care Team (Late st Contact Info) Description 09/26/2024 1:00 PM EDT Office Visit [facility] [address] [place] [phone] Messi Mccollum MD [address] [place], [place] [phone] 10/14/2024 2:15 PM EDT Telemedicine [facility] [address] [place], [place] [phone] Sammy Reilly MD [address] [place], [place] [phone] Health Maintenance Due Date Last Done Comments CT Colonography 1956 Dental Prophylaxis 1956 Dental X-Ray: Bitewings [...] 2024 05/10/2023, 03/03/2022, 05/17/2021, Additional history exists Mammogram 11/06/2024 11/07/2023, 2019, 01/30/2018 DTaP/Tdap/Td Vaccines (2 - Td or Tdap) 01/07/2025 01/07/2015 Diabetes: Hemoglobin A1C 03/05/2025 025, 03/11/2024, 10/18/2023, Additional history exists Alcohol/Substance Use Screening 03/11/2025 03/11/2024 SDOH Screening 07/15/2025 07/15/2024 Depression Screening 09/03/2025 09/03/2024, 09/04/19 Tobacco Screening 09/03/2025 09/03/2024 Dental X-Ray: Full Mouth 03/31/2026 03/30/2023 HPV/Cotest 12/04/2028 12/05/2023, 05/29/2018 Pap Smear 12/04/2028 12/05/2023 Colonoscopy 05/25/2032 05/25/2022 Colorectal Cancer Screening 05/25/2032 Pneumococcal Vaccine: 50+ Years Completed 09/05/2022, 08/04/2022, [...] Procedure Name Priority Date/Time Associated Diagnosis Comments POCT GLYCATED HEMOGLOBIN, TOTAL Routine 09/03/2024 2:47 PM EDT Type 2 diabetes mellitus with chronic kidney disease on chronic dialysis, with long-term current use of insulin ([facility]) POCT GLUCOSE Routine 09/03/2024 2:47 PM EDT Type 2 diabetes mellitus with chronic kidney disease on chronic dialysis, with long-term current use of insulin ([facility]) THINPREP IMAGING PAP AND HPV MRNA E6/E7 Routine 12/05/2023 9:53 AM EDT BI MAMMOGRAM SCREENING TOMOSYNTHESIS BILATERAL Routine 11/07/2023 2:55 PM EDT Encounter for screening mammogram for malignant neoplasm of breast PANORAMIC RADIOGRAPHIC IMAGE Routine 03/30/2023 10:30 AM EST Complete edentulism, unspecified edentulism class COMPREHENSIVE ORAL EVALUATION - NEW OR ESTABLISHED PATIENT Routine 03/30/2023 10:30 AM EST Complete edentulism, unspecified edentulism class HM COLONOSCOPY Routine 05/25/2022 1:47 PM EST LIPID PANEL, STANDARD Routine 11/23/2020 9:54 AM EDT from Last 3 Months or Most Recently Relevant to Health Maintenance Results * POCT HGB A1C (09/03/2024 2:47 PM EDT) Hemoglobin A1C 5.8 4.0 - 6.0 % QC Media Lot # [id number] Lot# Expiration Date Blood 09/03/2024 2:47 PM EDT us Margarita LUNDY POINT OF CARE TEST ENTER/EDIT OR DERABLES Final Result * POCT Glucose (09/03/2024 2:47 PM EDT) Glucose Blood, POC 167 60 - 200 mg/dL QC Media Lot # [id number] Lot# Expiration Date Blood Capillary blood specimen / Unknown 09/03/2024 2:47 PM EDT us Margarita LUNDY POINT OF CARE TEST ENTER/EDIT OR DERABLES Final Result * ThinPrep Imaging Pap and HPV mRNA E6/E7 (12/05/2023 9:53 AM EDT) HPV nRNA E6/E7 Not Detected Not Detected [facility] Comment:Methodology: Transcr iption-Mediated AmplificationThis assay detects E6/E7 viral messenger RNA (mRNA) from 14high-risk HPV types (16,18,31,33,35,39,45,51,52,56,58,59,66,68).Cervical sources are required for HPV testing.If a vaginal source from a patient who has had atotal hysterectomy with removal of cervix wassubmitted, please contact the testing laboratoryfor alternative testing options.For additional information, please refer tohttp://education.ChipRewards/faq/UKW539z2(This link if provided for information/educational purposes only.)THIS TEST WAS PERFORMED AT:[facility] [address] [id number] JUNE MD SOURCE: SEE NOTE [facility] Comment:None given Report Status: [facility] Clinical Information: SEE NOTE [facility] Comment:None given LMP: SEE NOTE [facility] Comment:NONE GIVEN Prev. PAP: SEE NOTE [facility] Comment:NONE GIVEN Prev. BX: SEE NOTE [facility] Comment:NONE GIVEN Statement Of Adequacy: SEE NOTE [facility] Comment:Satisfactory for amandeep luation.Endocervical/transformation zone component absent. General Categorization: [facility] Interpretation/Result: SEE NOTE [facility] Comment:Cytology Results: Ne gative for intraepitheliallesion or malignancy. Cytology Comment SEE NOTE [facility] Comment:This Pap test has be en evaluated with computerassisted technology. Counselor Aid: SEE NOTE [facility] Comment:DMM, CT(ASCP)CT scre ening location: [place] [address] Review Counselor Aid: [facility] Pathologist [facility] PAP Infection [facility] See Note SEE NOTE [facility] Comment:EXPLANATORY NOTE:The Pap is a screening test for cervical cancer. It isnot a diagnostic test and is subject to false negativeand false positive results. It is most reliable when asatisfactory sample, regularly obtained, is submittedwith relevant clinical findings and history, and whenthe Pap result is evaluated along with historic andcurrent clinical information. 12/05/2023 9:53 AM EDT 12/05/2023 4:42 PM EDT Narrative [facility] - 12/12/2023 5:23 PM EDT SEE SCANNED RESULTS IN EMR us Geena Umana CNM LAB PATHOLOGY ORDERABLES Final Result [facility] [address] [place] [address] [phone] * BI Mammogram Screening Tomosynthesis Bilateral (11/07/2023 2:55 PM EDT) Anatomical Region Laterality Modality Breast Bilateral Mammography 11/07/2023 2:55 PM EDT Narrative 12/05/2023 11:54 AM EDT ? [facility] [place] ? [address] ?[place] [address] ? Mammography Report ? Signed ? Patient: Muller, M ?MR#: [id number] ? : 1955 ?Acct:[id number] ? Age/Sex: 68 / F ?ADM Date: 06/19/24 ? Loc: HO.MAMMO ? Attending Dr: Sammy Vicente MD ? Ordering Physician: Sammy Vicente MD ?Resu ?? lts: 1Negative ? Date of Service: 11/07/23 ?Follow Up: 1 Year From Orig ?? inal Mammogram ? Procedure(s): MM tomosynthesis screening BI ?? Accession Number(s): [id number] ? cc: Sammy Vicente MD ? EXAMINATION: [...] 1150 ? DD/ 1455 ? TD/TT: ? Histology Assistant: ? Procedure Note Donotuseinterpreter, Image - 12/05/2023 [facility] [address] [place] [address] Dr. [place], NIRANJAN [address] Mammography Report Signed Patient: Cruz Muller MMR#: [id number] : 6Acct:[id number] Age/Sex: 68 / FADM Date: 11/07/23 Loc: HO.MAMMO Attending Dr: Sammy Vicente MD Ordering Physician: Sammy Vicente MDResu lts: 1Negative Date of Service: 11/07/23Follow Up: 1 Year From Orig inal Mammogram Procedure(s): MM tomosynthesis screening BI Accession Number(s): [id number] cc: Sammy Vicente MD EXAMINATION: MM SCREENING [...] in OV> 12/05/23 1150 DD/ 1455 TD/TT: Histology Assistant: Sammy Whitehead MD IMG BI PROCEDURES Fin al Result * Hm Colonoscopy (05/25/2022 1:47 PM EST) Historical Provider HEALTH MAINTENANCE Final Result * (ABNORMAL) LIPID PANEL, STANDARD (11/23/2020 [...] ?? LDL-C is now calculated using the Chaitanya-Villarreal ?? calculation, which is a validated novel method providing ?? better accuracy than the Friedewald equation in the ?? estimation of LDL-C. ?? Chaitanya SS et al. CARLOS. 2013;310(19): 3684-7695 ?? (http://education.docBeat/faq/HIV140) Non-HDL Cholesterol 175(H) <130 mg/dL (calc) [facility] [...] Lipidol. 2015;9:129-169. ?? 11/23/2020 9:54 AM EDT Sammy Whitehead MD LAB BLOOD ORDERABLES Final Result [facility] [address] from Last 3 Months or Most Recently Relevant to Health Maintenance Insurance [facility] OPTIONS (HMO D-SNP) [place] [id number] [place] [phone] Care Teams Simonizer Relationship Specialty Start Date End Date Sammy Reilly MD [address] [place] [address] PCP - General Internal Medicine 12/23/13 [employer] 04/08/22 Tj Larose MD Technical Product Manager Nephrology 04/10/24
--- OUTSIDE RECORDS SUMMARY | 2024-09-10 17:46 | XMS_ITS | Encounter Summary ---
Author Organization [facility] Address [address] [facility] 7t [place] [address] Care Team Providers Care Court Bailiff Name Role Phone Sammy Reilly MD Primary Care Provide r Encounter Details Date Type Department Care Team (Late st Contact Info) Description 05/08/2022 Orders Only [facility] [address] [place] [phone] Swetha Ribera LPN Social History Tobacco Use [...] Description 09/26/2024 1:00 PM EDT Office Visit [facility] [address] [place] [phone] Messi Mccollum MD [address] [place] [address] 10/14/2024 2:15 PM EDT Telemedicine [facility] [address] [place] [phone] Sammy Reilly MD [address] [place] [address] [phone] documented as of this encounter Visit Diagnoses Not on filedocumented in this encounter Care Teams Court Bailiff Relationship Specialty Start Date End Date Sammy Reilly MD [address] [place] [phone] PCP - General Internal Medicine 12/23/13 [employer] 04/08/22 Tj Larose MD Wedding Planner Nephrology 04/10/24 documented as of this encounter
--- OUTSIDE RECORDS SUMMARY | 2024-09-10 17:46 | XMS_ITS | Encounter Summary ---
Author Organization [facility] Address [address] [facility] 7t [place] [address] Care Team Providers Care Supervisor Metal Hanging Name Role Phone Sammy Reilly MD Primary Care Provide r Reason for Visit * Reason Comments Med Refill Encounter Details Date Type Department Care Team ([facility] Contact Info) Description 06/20/2022 Refill [facility] [address] [place] [address] Sammy Reilly MD [address] [place], [place] [phone] Primary hypertension (Primary Dx); Uncomplicated opioid dependence [...] Upcoming Encounters Date Type Department Care Team ([facility] Contact Info) Description 09/26/2024 1:00 PM EDT Office Visit [facility] [address] [place], [place] [phone] Messi Mccollum MD 230 [place] [address] 10/14/2024 2:15 PM EDT Telemedicine [facility] [address] [place] [phone] Sammy Reilly MD 230 [facility] [place] [address] documented as of this encounter Visit Diagnoses Diagnosis Primary hypertension- Primary Unspecified essential hypertension Uncomplicated opioid dependence (CMS/HCC) documented in this encounter Care Teams Supervisor Metal Hanging Relationship Specialty Start Date End Date Sammy Reilly MD Cecille [place] [phone] PCP - General Internal Medicine 12/23/13 [employer]. 04/08/22 Tj Larose MD Stem Lead Former Nephrology 04/10/24 documented as of this encounter
--- OUTSIDE RECORDS SUMMARY | 2024-09-10 17:46 | XMS_ITS | Encounter Summary ---
Author Organization [employer] Address [address] [facility] 7t [place] [address] Care Team Providers Care Station Helper Name Role Phone Sammy Reilly MD Primary Care Provide r Reason for Visit * Reason Comments Med Refill Encounter Details Date Type Department Care Team ([facility] Contact Info) Description 02/12/2023 Refill [facility] [address] [place] [address] Lois Garrett MD 230 [place], [place] [phone] Hypertension secondary to other renal disorders Social [...] Encounters Date Type Department Care Team ([facility] Contact Info) Description 09/26/2024 1:00 PM EDT Office Visit [facility] [address] [place] [address] Messi Mccollum MD 230 [place] [address] 10/14/2024 2:15 PM EDT Telemedicine [facility] [address] [place], [place] [phone] Sammy Reilly MD 230 [place], [place] [phone] documented as of this encounter Goals Goal [...] as of this encounter Care Teams Station Helper Relationship Specialty Start Date End Date Sammy Reilly MD [address] [place] [phone] PCP - General Internal Medicine 12/23/13 [employer] 04/08/22 Tj Larose MD Heavy Equipment Operator/Paver Nephrology 04/10/24 documented as of this encounter
--- OUTSIDE RECORDS SUMMARY | 2024-09-10 17:46 | XMS_ITS | Encounter Summary ---
Author Organization [facility] Address [address] [facility] [address] 7t [place] [address] Care Team Providers Care Retail Field Supervisor Name Role Phone Sammy Reilly MD Primary Care Provide r Reason for Visit * Reason Comments Med Refill Encounter Details Date Type Department Care Team ([facility] st Contact Info) Description 04/25/2023 Refill [facility] [address] [place] [address] Messi Mccollum MD 230 [place] [address] Uncomplicated opioid dependence (CMS/HCC) Social History Tobacco [...] 1:00 PM EDT Office Visit [facility] [address] [place] [address] Messi Mccollum MD [address] [place] [address] 10/14/2024 2:15 PM EDT Telemedicine [facility] [address] [place] [address] Sammy Reilly MD [address] [place] [address] [phone] documented as of this encounter Goals Goal [...] documented as of this encounter Care Teams Retail Field Supervisor Relationship Specialty Start Date End Date Sammy Reilly MD [address] [place] [phone] PCP - General Internal Medicine 12/23/13 [employer] 04/08/22 Tj Larose MD Broomcorn Grader Nephrology 04/10/24 documented as of this encounter
--- OUTSIDE RECORDS SUMMARY | 2024-09-10 17:46 | XMS_ITS | Encounter Summary ---
Author Organization [employer] Address [address] [facility] [address] 7t [place] [address] Care Team Providers Care Playground Monitor Name Role Phone Sammy Reilly MD Primary Care Provide r Reason for Visit * Reason Comments Med Refill Encounter Details Date Type Department Care Team ([facility] st Contact Info) Description 04/25/2023 Refill [facility] 230 [place] [address] Neptali Coles MD 230 [place] [address] Social History Tobacco Use Types Packs/Day Years [...] Description 09/26/2024 1:00 PM EDT Office Visit [facility] [address] [place] [phone] Messi Mccollum MD [address] [place] [address] 10/14/2024 2:15 PM EDT Telemedicine [facility] [address] [place] [address] Sammy Reilly MD [address] [place] [address] [phone] documented as of this encounter Goals Goal [...] documented as of this encounter Care Teams Playground Monitor Relationship Specialty Start Date End Date Sammy Reilly MD [address] [place] [address] [phone] PCP - General Internal Medicine 12/23/13 [employer] 04/08/22 Tj Larose MD Talent Acquisition Director Nephrology 04/10/24 documented as of this encounter
--- OUTSIDE RECORDS SUMMARY | 2024-09-10 17:46 | XMS_ITS | Encounter Summary ---
Author Organization [facility] Address [address] [place] [phone] Phone Care Team Providers Care Source Inspector Name Role Phone Unavailable Primary Care Provider Unavailabl e Encounter Details Date Type Department Care Team ([facility] st Contact Info) Description 09/06/2024 Treatment [facility]. [address] [phone] Tj Larose MD [address] [phone] End stage renal disease; Dependence [...] Dialysis Note - Tj Larose MD - 09/06/2024 12:00 AM EDT BASIC NOTE Patient: Cruz Muller : 1955 Note Author: TJ LAROSE MD Service Date: 09/06/2024 This patient was personally seen for a basic visit as part of routine monthly dialysis care for end stage renal disease. Attending Instructor Of Sociology: TJ LAROSE MD Dialysis Location: [facility] Schedule: Shift: 2 OVERVIEW Patient is stable. COMMENTS: Note in dialysis neurology manager ADEQUACY ASSESSMENT Kt/V, Natural Log 1.57 (08/21/24) [...] stable Signed by: TJ LAROSE MD on 09/06/2024 at 11:18:55 AM documented in this encounter Plan of Treatment Not on file documented as of this encounter Visit Diagnoses Diagnosis End stage renal disease Dependence on renal dialysis documented in this encounter
--- OUTSIDE RECORDS SUMMARY | 2024-09-10 17:46 | XMS_ITS | Encounter Summary ---
Author Organization [employer] Address [address] [facility] 7t [place] [address] Care Team Providers Care Electronics Hardware Design Engineer Name Role Phone Sammy Reilly MD Primary Care Provide r Reason for Visit * Reason Comments Med Refill Encounter Details Date Type Department Care Team (Late st Contact Info) Description 05/05/[address] [facility] [address] [place] [address] Margarita Rob, ANP [address] [place] [address] Chronic obstructive pulmonary disease, unspecified COPD type [...] Department Care Team (Late Contact Info) Description 09/26/2024 1:00 PM EDT Office Visit [facility] [address] [place] [phone] Messi Mccollum MD 230 [place], [place] [phone] 10/14/2024 2:[address] [facility] 230 [place], [place] [phone] Sammy Reilly MD [address] [place] [address] [phone] documented as of this encounter Visit Diagnoses Diagnosis Chronic obstructive pulmonary disease, unspecified COPD type (CMS/HCC)- Primary documented in this encounter Care Teams Electronics Hardware Design Engineer Relationship Specialty Start Date End Date Sammy Reilly MD [address] [place] [address] [phone] PCP - General Internal Medicine 12/23/13 [employer] 04/08/22 Tj Larose MD Computer Numerical Control Machinist Nephrology 04/10/24 documented as of this encounter
--- OUTSIDE RECORDS SUMMARY | 2024-09-10 17:47 | XMS_ITS | Clinical Summary ---
Author Organization [facility] Address [address] [place] [address] Phone Care Team Providers Care Welt Insole Channeler Name Role Phone Sammy Vicente MD Primary Care Provi baldo Social History Tobacco Use Types Packs/Day Years Used Date Smoking Tobacco: Never Assessed Comments Unknown Sex and Gender Information Value Date Recorded Sex Assigned at Not on file Legal Sex Female 2:31 PM EST Gender Identity Not on file Sexual Orientation Not on file Plan of Treatment Upcoming Encounters Date Type Department Care Team ([facility] Contact Info) Description 09/29/2024 2:45 PM EDT Consult Orthopedic Surgery - [place] [phone] [phone] Santhosh Patricia, JESSIE [address] [address] Health Maintenance Due Date Last Done Comments Breast Cancer Screening 1955 Diabetes: Annual GFR (Glomer ular Filtration Rate) 1955 Diabetes: Annual Foot Exam 1966 Diabetes: Annual Retina Eye Exam 1966 DTaP,Tdap,and Td Vaccines (1 - Tdap) 1975 Pneumococcal Vaccine: 50+ Ye ars (1 of 2 - PCV) 1975 Zoster Vaccines (1 of 2) 2006 RSV Immunization Adult Patie nts (1 - Risk 60-74 years 1-dose series) 2016 Cholesterol Screening (Lipid Panel) 04/19/2022 Colorectal Cancer Screening: Colonoscopy 04/19/2022 Falls Risk Assessment 04/19/2022 Hepatitis C Screening 04/19/2022 Medicare Annual Wellness Visit 04/19/2022 Osteoporosis Screening (Bone Density Screening) 04/19/2022 Social Influencers of Health Screening 04/19/2022 Depression Screening 10/04/2023 10/03/2022 COVID-19 Vaccine (2023-2 5 season) 2024 Diabetes: Annual Urine Albumin-Creatinine Ratio (uACR) 08/01/2024 Diabetes: Blood Sugar Contro l Test (HGBA1C) 08/01/2024 Influenza Vaccine (Season Ended) 2025 HIB Vaccines Aged Out No longer eligi [...] age to complete this topic Meningococcal B Vaccine Aged Out No l onger eligible based on patient's age to complete this topic RSV Immunization Patients Un baldo 20 months Aged Out No longer eligible b ased on patient's age to complete this topic Varicella Vaccines Aged Out No longer eligible based on patient's age to complete this topic Insurance MEDICARE Member Subscriber Plan / Payer (Ef fective 2021-Present) Name:Cruz Muller Relation to Subscriber:Self Name:Curz Muller Payer ID:[id number] Group ID:[id number] Type:Not on file Address: [place] [address] [place] [address] Care Teams Welt Insole Channeler Relationship Specialty Start Date End Date Sammy Vicente MD [address] [place] [address] [phone] PCP - General Internal Medicine 08/01/24
--- OUTSIDE RECORDS SUMMARY | 2024-09-10 17:47 | XMS_ITS | Encounter Summary ---
Author Organization [employer] Address [address] [facility] [address] 7t [place] [address] Care Team Providers Care Digital Marketing Officer Name Role Phone Sammy Reilly MD Primary Care Provide r Reason for Visit * Reason Onset Date Comments PA 06/10/2024 Encounter Details Date Type Department Care Team ([facility] st Contact Info) Description 06/10/2024 Telephone [facility] [address] [place] [address] Sammy Reilly MD 230 [place] [address] PA Social History Tobacco Use Types Packs/Day [...] the past 12 months, has t he Around Knowledge, gas, oil or water Data Driven Delivery System threatened to shut off services in your [...] Description 09/26/2024 1:00 PM EDT Office Visit [facility] [address] [place] [phone] Messi Mccollum MD [address] [place] [address] 10/14/2024 2:15 PM EDT Telemedicine [facility] [address] [place] [address] Sammy Reilly MD [address] [place] [address] documented as of this encounter Goals Goal [...] documented as of this encounter Care Teams Digital Marketing Officer Relationship Specialty Start Date End Date Sammy Reilly MD 230 [place] [address] PCP - General Internal Medicine 12/23/13 [employer] 04/08/22 Tj Larose MD Ratings Analyst Nephrology 04/10/24 documented as of this encounter
--- OUTSIDE RECORDS SUMMARY | 2024-09-10 17:47 | XMS_ITS | Encounter Summary ---
Author Organization [facility] Address [address] [facility] 7t [place] [address] Care Team Providers Care Practice Or Student Teacher Name Role Phone Sammy Reilly MD Primary Care Provide r Reason for Visit * Reason Comments Med Refill Encounter Details Date Type Department Care Team ([facility] Contact Info) Description 11/10/2022 Refill [facility] [address] [place] [address] Hattie Gonzales MD [address] [place] [address] Social History Tobacco Use Types Packs/Day Years [...] Upcoming Encounters Date Type Department Care Team ([facility] Contact Info) Description 09/26/2024 1:00 PM EDT Office Visit [facility] [address] [place] [address] Messi Mccollum MD [address] [place], [place] [phone] 10/14/2024 2:15 PM EDT Telemedicine [facility] [address] [place], [place] [phone] Sammy Reilly MD [address] [place], [place] [phone] documented as of this encounter Goals Goal [...] documented as of this encounter Care Teams Practice Or Student Teacher Relationship Specialty Start Date End Date Sammy Reilly MD [address] [place] [address] PCP - General Internal Medicine 12/23/13 [employer] 04/08/22 Tj Larose MD Corporate Lawyer Nephrology 04/10/24 documented as of this encounter
--- OUTSIDE RECORDS SUMMARY | 2024-09-10 17:47 | XMS_ITS | Encounter Summary ---
Author Organization [employer] Address [address] [facility] [address] 7t [place] [address] Care Team Providers Care Process Consultant Name Role Phone Sammy Reilly MD Primary Care Provide r Encounter Details Date Type Department Care Team (Late st Contact Info) Description 07/28/2024 Orders Only [facility] [address] [place], [place] [phone] Provider, MD Willow Social History Tobacco Use Types Packs/Day Years [...] Description 09/26/2024 1:00 PM EDT Office Visit [facility] [address] [place] [address] Messi Mccolulm MD [address] [place] [address] 10/14/2024 2:15 PM EDT Telemedicine [address] [phone] Sammy Reilly MD [address] [place] [phone] documented as of this encounter Goals Goal [...] Procedure Name Priority Date/Time Associated Diagnosis Comments COLONOSCOPY Routine 05/25/2022 1:47 PM EST documented in this encounter Results * Hm Colonoscopy (05/25/2022 1:47 PM EST) us Historical Provider HEALTH MAINTENANCE Final Result documented in this encounter Visit Diagnoses Not on filedocumented in this encounter Additional Health Concerns Assessment Noted Time PHQ-9 Depression Total Score: 11 10/17/ 024 9:25 AM EDT documented as of this encounter Care Teams Process Consultant Relationship Specialty Start Date End Date Sammy Reilly MD [address] [place] [phone] PCP - General Internal Medicine 12/23/13 [employer] 04/08/22 Tj Larose MD Staff Veterinarian Nephrology 04/10/24 documented as of this encounter
--- OUTSIDE RECORDS SUMMARY | 2024-09-10 17:47 | XMS_ITS | Clinical Summary ---
Author Organization [facility] Address [address] [address] Phone Care Team Providers Care Application Administrator Name Role Phone Unavailable Primary Care Provider [...] Encounters Date Type Department Care Team Description 09/09/2024 Treatment [facility] [address] [phone] Tj Larose MD End stage renal disease; Dependence on renal dialysis 09/06/2024 Treatment [facility] [address] [phone] Tj Larose MD End stage renal disease; Dependence on renal dialysis 08/30/2024 Treatment [facility] [address] [phone] Tj Larose MD End stage renal disease; Dependence on renal dialysis 08/19/2024 Treatment [facility] [address] [phone] Tj Larose MD End stage renal disease; Dependence on renal dialysis 08/14/2024 Treatment [facility] [address] [phone] Tj Larose MD End stage renal disease; Dependence on renal dialysis 08/05/2024 Treatment [facility] [address] [phone] Tj Larose MD End stage renal disease; Dependence on renal dialysis 07/31/2024 Treatment [facility] [address] [phone] Tj Larose MD End stage renal disease; Dependence on renal dialysis 07/26/2024 Treatment [facility] [address] [phone] Tj Larose MD End stage renal disease; Dependence on renal dialysis 07/24/2024 Orders Only [facility] [address] [phone] Tj Larose MD 07/12/2024 Treatment [facility] [address] [phone] Tj Larose MD 07/05/2024 Treatment [facility] [address] [phone] Tj Larose MD 07/01/2024 Treatment [facility] [address] [phone] Clive Lange MD 06/24/2024 Treatment [facility] [address] [phone] Tj Larose MD 06/19/2024 Treatment [facility] [address] [phone] Tj Larose MD from Last 3 Months [...] Colonoscopy 2005 Colorectal Cancer Screening: Sigmoidoscopy 2005 Diabetes: Ophthalmology Exam 05/30/2024 Diabetes: Pedal Pulse Checked 05/30/2024 Diabetes: Sensory Foot Exam 05/30/2024 Diabetes: Visual Foot Exam 05/30/2024 Diabetes: Hemoglobin A1C 11/20/2024 025, 03/11/2024, 12/29/2021, Additional history exists Influenza Vaccine (Season Ended) 2025 02/26/2021, 05/29/2018, 07/12/2015, Additional history exists Pneumococcal Vaccine: 50+ Years Completed 09/05/2022, 08/04/2022, 07/12/2015, Additional history exists Pneumococcal Vaccine: Peds ( 0 to 5 Years) and At-Risk Patients (6 to 49 Years) Discontinued 09/05/2022, 08/04/2022, 07/12/2015, Additional history exists Procedures Procedure Name Priority Date/Time Associated Diagnosis Comments HEMOGLOBIN Routine 09/06/2024 3:00 AM EDT COLLECTION DATE (HC) Routine 09/06/2024 3:00 AM EDT HEMOGLOBIN A1C Routine 08/21/2024 3:00 AM EDT FERRITIN Routine 08/21/2024 3:00 AM EDT HEPATITIS B SURFACE ANTIGEN W/REFL CONFIRM Routine 08/21/2024 3:00 AM EDT TRANSFERRIN SATURATION Routine 3:00 AM EDT PROTEIN, TOTAL, SERUM Routine 08/21/2024 3:00 AM EDT MAGNESIUM Routine 08/21/2024 3:00 AM EDT ELECTROLYTE PANEL Routine 08/21/2024 3:0 0 AM EDT LIH (HC) Routine 08/21/2024 3:00 AM EDT LIPID PANEL Routine 08/21/2024 3:00 AM EDT LACTATE DEHYDROGENASE Routine 08/21/2024 3:00 AM EDT CREATININE, SERUM Routine 08/21/2024 3:0 0 AM EDT GLUCOSE, RANDOM Routine 08/21/2024 3:00 AM EDT BILIRUBIN, TOTAL Routine 08/21/2024 3:00 AM EDT AST Routine 08/21/2024 3:00 AM EDT ALT Routine 08/21/2024 3:00 AM EDT ALKALINE PHOSPHATASE Routine 08/21/2024 3:00 AM EDT CALCIUM PHOSPHORUS PRODUCT, ADJUSTED (HC) Routine 08/21/2024 3:00 AM EDT PTH, INTACT Routine 08/21/2024 3:00 AM EDT KT/V NATURAL LOG, URR (HC) Routine 08/21/2024 3:00 AM EDT CBC AND DIFFERENTIAL Routine 08/21/2024 3:00 AM EDT HEMOGLOBIN Routine 08/09/2024 3:00 AM EDT COLLECTION DATE (HC) Routine 08/09/2024 3:00 AM EDT HEPATITIS B SURFACE ANTIGEN W/REFL CONFIRM Routine 07/24/2024 3:00 AM EST CBC AND DIFFERENTIAL Routine 07/24/2024 3:00 AM EST PROTEIN, TOTAL, SERUM Routine 07/24/2024 3:00 AM EST TRANSFERRIN SATURATION Routine 3:00 AM EST MAGNESIUM Routine 07/24/2024 3:00 AM EST ELECTROLYTE PANEL Routine 07/24/2024 3:0 0 AM EST LIH (HC) Routine 07/24/2024 3:00 AM EST LACTATE DEHYDROGENASE Routine 07/24/2024 3:00 AM EST CREATININE, SERUM Routine 07/24/2024 3:0 0 AM EST GLUCOSE, RANDOM Routine 07/24/2024 3:00 AM EST AST Routine 07/24/2024 3:00 AM EST BILIRUBIN, TOTAL Routine 07/24/2024 3:00 AM EST ALT Routine 07/24/2024 3:00 AM EST CALCIUM PHOSPHORUS PRODUCT, ADJUSTED (HC) Routine 07/24/2024 3:00 AM EST ALKALINE PHOSPHATASE Routine 07/24/2024 3:00 AM EST PTH, INTACT Routine 07/24/2024 3:00 AM EST FERRITIN Routine 07/24/2024 3:00 AM EST KT/V NATURAL LOG, URR (HC) Routine 07/24/2024 3:00 AM EST from Last 3 Months Results * Collection Date (09/06/2024 3:00 AM EDT) Only the most recent of2 resultswithin the time period is included. Collection Date See Comment [facility] Comment: Patient sample received may exceed specimen stability, based on the collection date electronically provided. ??When reviewing patient results, verify collection information and consider specimen stability before acting on any critical or panic results. 09/06/2024 3:00 AM EDT us Tj Larose MD LAB HISTORICA [id number] RESULTS Final Result [facility] [address] [place] [address] * (ABNORMAL) Hemoglobin (09/06/2024 3:00 AM EDT) Only the most recent of2 resultswithin the time period is included. Pathologist [facility] Hgb 10.6(L) 11.2 - 15.7 g/dL [facility] Hemoglobin x 3 31.8(L) 33.6 - 47.1 g/dL [facility] 09/06/2024 3:00 AM EDT 09/09/2024 12:57 PM EDT us Tj Larose MD LAB BLOOD ORDERABLES Final Result Performing Organization Address [facility]/ZIP Co de Phone Number [facility]PS [facility] [address] [place] [address] * LIH (08/21/2024 3:00 AM EDT) Only the most recent of2 resultswithin the time period is included. Pathologist [facility] Lipemia Normal Normal [facility] Icterus Normal Normal [facility] Hemolysis Normal Normal [facility] 08/21/2024 3:00 AM EDT 08/23/2024 1:28 PM EDT us Tj Larose MD LAB HISTORICA [id number] RESULTS Final Result Performing Organization Address City/[facility]/ZIP Co de Phone Number [facility]PS [facility] [address] [place] [address] * (ABNORMAL) Kt/V Natural Log, URR (08/21/2024 3:00 AM EDT) Only the most recent of2 resultswithin the time period is included. Pathologist [facility] Treatment Time 182 min [facility] Pre-Weight, lb 66.3 kg [facility] Post-Weight, lb 63.5 kg [facility] Ultrafiltration Rate 15(H) <=13 mL/kg/hr [facility] Comment: Recommend achieving Ultrafiltration Rate (UFR) <=10 mL/kg/hr References: Tanja MCCRACKEN et al. Kidney Int. 2010; 79(2):250-257 BUN Post Dialysis 11 7 - 25 mg/dL [facility] BUN 42(H) 7 - 25 mg/dL [facility] UREA REDUCTION RATIO (%) 74 >=65 % [facility] Kt/V Natural Log 1.57 >=1.2 [facility] 08/21/2024 3:00 AM EDT 08/23/2024 1:26 PM EDT Tj Larose MD LAB HISTORICA [id number] RESULTS Final Result Performing Organization Address [facility] de Phone Number [facility]PS [facility] [address] [place] [address] * Calcium Phosphorus Product, Adjusted (08/21/2024 3:00 AM EDT) Only the most recent of2 resultswithin the time period is included. Albumin 4.3 3.6 - 5.4 g/dL [facility] Calcium 9.3 8.6 - 10.3 mg/dL [facility] Phosphorus, Serum 4.0 2.5 - 5.0 mg/dL [facility] Ca*PO4 37.2 <55.0 mg2/dL2 [facility] Calcium, Adjusted Total 9.3 8.6 - 10.3 mg/dL [facility] CA*PO4 CORRCTD 37.2 <55.0 mg2/dL2 [facility] 08/21/2024 3:00 AM EDT 08/23/2024 1:28 PM EDT Tj Larose MD LAB HISTORICA [id number] RESULTS Final Result Performing Organization Address [facility] de Phone Number [facility]PS [facility] [address] [place] [address] * Hepatitis B Surface Ag w/Reflex Confirmation (08/21/2024 3:00 AM EDT) Only the most recent of2 resultswithin the time period is included. Hep B Surface Antigen Negative Negative [facility] 08/21/2024 3:00 AM EDT 08/23/2024 1:28 PM EDT Tj Larose MD LAB BLOOD ORDERABLES Final Result Performing Organization Address City/[facility] de Phone Number [facility]PS [facility] [address] [place] [address] * (ABNORMAL) TSAT (08/21/2024 3:00 AM EDT) Only the most recent of2 resultswithin the time period is included. [facility] Iron 54 50 - 170 ug/dL [facility] Transferrin 148(L) 250 - 380 mg/dL [facility] TIBC 207(L) 211 - 406 ug/dL [facility] Iron Saturation (TSat) 26 22 - 52 % [facility] 08/21/2024 3:00 AM EDT 08/23/2024 1:28 PM EDT Tj Larose MD LAB BLOOD ORDERABLES Final Result Performing Organization Address [facility] de Phone Number [facility]PS [facility] [address] [place] [address] * (ABNORMAL) CBC and Differential (08/21/2024 3:00 AM EDT) Only the most recent of2 resultswithin the time period is included. [facility] DIFFERENTIAL MANUAL, 2 Not Indicated [facility] White Blood Cells 8.3 4.0 - 10.0 K/uL [facility] RBC 3.47(L) 3.93 - 5.22 M/uL [facility] Hgb 11.1(L) 11.2 - 15.7 g/dL [facility] Hemoglobin x 3 33.3(L) 33.6 - 47.1 g/dL [facility] Hematocrit 35.5 34.1 - 44.9 % [facility] MCV 102.3(H) 79.4 - 94.8 fL [facility] MCH 32.0 25.6 - 32.2 pg [facility] MCHC 31.3(L) 32.2 - 35.5 g/dL [facility] Platelets 263 182 - 369 K/uL [facility] RDW 15.3(H) 11.7 - 14.4 % [facility] Neutrophils Relative 69.3 34.0 - 71.1 % [facility] Lymphocytes Relative 16.6(L) 19.3 - 51.7 % [facility] Monocytes 9.2 4.7 - 12.5 % [facility] Eosinophils Relative 4.2 0.7 - 5.8 % [facility] Basophils Relative 0.5 0.1 - 1.2 % [facility] Immature Granulocytes 0.2 0.0 - 1.0 % [facility] 08/21/2024 3:00 AM EDT 08/23/2024 1:26 PM EDT Tj Larose MD LAB BLOOD ORDERABLES Final Result Performing Organization Address City/[facility]/ZIP Co de Phone Number [facility]PS [facility] [address] [place] [address] * ALT (08/21/2024 3:00 AM EDT) Only the most recent of2 resultswithin the time period is included. ALT (SGPT) 14 10 - 49 U/L [facility] 08/21/2024 3:00 AM EDT 08/23/2024 1:28 PM EDT Tj Larose MD LAB BLOOD ORDERABLES Final Result Performing Organization Address [facility] Co de Phone Number [facility]PS [facility] [address] [place] [address] * AST (08/21/2024 3:00 AM EDT) Only the most recent of2 resultswithin the time period is included. AST (SGOT) 24 <34 U/L [facility] 08/21/2024 3:00 AM EDT 08/23/2024 1:28 PM EDT us Tj Larose MD LAB BLOOD ORDERABLES Final Result Performing Organization Address City/[facility] Co de Phone Number [facility] [address] [place] [address] * Protein, total (08/21/2024 3:00 AM EDT) Only the most recent of2 resultswithin the time period is included. Total Protein 7.2 6.4 - 8.9 g/dL [facility] 08/21/2024 3:00 AM EDT 08/23/2024 1:28 PM EDT Tj Larose MD LAB BLOOD ORDERABLES Final Result Performing Organization Address [facility] Co de Phone Number [facility] [address] [place] [address] * (ABNORMAL) Alkaline phosphatase (08/21/2024 3:00 AM EDT) Only the most recent of2 resultswithin the time period is included. Alkaline Phosphatase 144(H) 46 - 116 U/L [facility] 08/21/2024 3:00 AM EDT 08/23/2024 1:28 PM EDT Tj Larose MD LAB BLOOD ORDERABLES Final Result Performing Organization Address [facility] de Phone Number [facility] [address] [place] [address] * (ABNORMAL) PTH, Intact (08/21/2024 3:00 AM EDT) Only the most recent of2 resultswithin the time period is included. PTH, Intact 154(L) 160 - 721 pg/mL [facility] Comment: Suggested (KDIGO) ESRD maintenance range is two to nine times the upper normal limit (80.1 pg/mL) for the laboratory. 08/21/2024 3:00 AM EDT 08/23/2024 1:28 PM EDT Tj Larose MD LAB BLOOD ORDERABLES Final Result Performing Organization Address [facility] Co de Phone Number [facility] [address] [place] [address] * (ABNORMAL) Magnesium (08/21/2024 3:00 AM EDT) Only the most recent of2 resultswithin the time period is included. Magnesium 2.9(H) 1.9 - 2.7 mg/dL [facility] 08/21/2024 3:00 AM EDT 08/23/2024 1:28 PM EDT us Tj Larose MD LAB BLOOD ORDERABLES Final Result Performing Organization Address [facility] de Phone Number [facility] [address] [place] [address] * (ABNORMAL) Lactate dehydrogenase (08/21/2024 3:00 AM EDT) Only the most recent of2 resultswithin the time period is included. LDH 316(H) 120 - 246 U/L [facility] 08/21/2024 3:00 AM EDT 08/23/2024 1:28 PM EDT us Tj Larose MD LAB BLOOD ORDERABLES Final Result Performing Organization Address [facility] de Phone Number [facility] [address] [place] [address] * Hemoglobin A1c (08/21/2024 3:00 AM EDT) Hemoglobin A1C 5.5 <5.7 % [facility] Comment: Methodology: Enzymatic HbA1c (NGSP %) ?Suggested Diagnosis >6.4% ? Diabetic 5.7-6.4% ?Pre-Diabetic <5.7% ? Non-Diabetic Diabetic Glucose Control Evaluation: Therapeutic action suggested at >8.0% ADA recommends a glycemic goal of <7.0% 08/21/2024 3:00 AM EDT 08/23/2024 1:26 PM EDT us Tj Larose MD LAB BLOOD ORDERABLES Final Result Performing Organization Address [facility] de Phone Number [facility] [address] [place] [address] * (ABNORMAL) Glucose, random (08/21/2024 3:00 AM EDT) Only the most recent of2 resultswithin the time period is included. Glucose 121(H) 74 - 109 mg/dL [facility] 08/21/2024 3:00 AM EDT 08/23/2024 1:28 PM EDT Tj Larose MD LAB BLOOD ORDERABLES Final Result Performing Organization Address [facility] de Phone Number [facility] [address] [place] [address] * (ABNORMAL) Ferritin (08/21/2024 3:00 AM EDT) Only the most recent of2 resultswithin the time period is included. Ferritin 1,524(H) 10 - 291 ng/mL [facility] 08/21/2024 3:00 AM EDT 08/23/2024 1:28 PM EDT Tj Larose MD LAB BLOOD ORDERABLES Final Result Performing Organization Address [facility] de Phone Number [facility] [address] [place] [address] * (ABNORMAL) Creatinine, serum (08/21/2024 3:00 AM EDT) Only the most recent of2 resultswithin the time period is included. Creatinine 6.45(H) 0.55 - 1.02 mg/dL [facility] 08/21/2024 3:00 AM EDT 08/23/2024 1:28 PM EDT us Tj Larose MD LAB BLOOD ORDERABLES Final Result Performing Organization Address [facility] de Phone Number [facility] [address] [place] [address] * (ABNORMAL) Bilirubin, total (08/21/2024 3:00 AM EDT) Only the most recent of2 resultswithin the time period is included. Total Bilirubin <0.2(L) 0.3 - 1.2 mg/dL [facility] 08/21/2024 3:00 AM EDT 08/23/2024 1:28 PM EDT Tj Larose MD LAB BLOOD ORDERABLES Final Result [facility] [address] [place] [address] * (ABNORMAL) Lipid panel (08/21/2024 3:00 AM EDT) Cholesterol 144 <200 mg/dL [facility] Comment: Optimal: ?<200 Borderline: ? 200-239 Higher Risk: ?>239 Triglycerides 94 <150 mg/dL [facility] Comment: Optimal: ?<150 Borderline High: ??150-199 High: ? 200-499 Very High: ?>499 HDL 50(A) >59 mg/dL [facility] Comment: Desirable: ?>59 Higher Risk: ?<40 LDL-Calc 75 <100 mg/dL [facility] Comment: Optimal: ?<100 Above Optimal: ?100-129 Borderline High: ??130-159 High: ? 160-189 Very High: ?>189 VLDL Cholesterol Carlos 19 <30 mg/dL [facility] Comment: Optimal: ?<30 Borderline High: ??30-39 High: ? 40-99 Very High: ?>99 Chol/HDL Ratio 2.9 <3.3 [facility] Comment: Optimal: ?<3.3 Higher Risk: ?>6.2 08/21/2024 3:00 AM EDT 08/23/2024 1:28 PM EDT Tj Larose MD LAB BLOOD ORDERABLES Final Result Performing Organization Address City/[facility] Co de Phone Number [facility] [address] [place] [address] * (ABNORMAL) Electrolyte panel (08/21/2024 3:00 AM EDT) Only the most recent of2 resultswithin the time period is included. Sodium 129(L) 136 - 145 mEq/L [facility] Potassium 4.7 3.4 - 5.0 mEq/L [facility] Chloride 91(L) 98 - 107 mEq/L [facility] Bicarbonate (CO2) 25 21 - 31 mEq/L [facility] Anion Gap 13 3 - 14 mEq/L [facility] 08/21/2024 3:00 AM EDT 08/23/2024 1:28 PM EDT Tj Larose MD LAB BLOOD ORDERABLES Final Result Performing Organization Address [facility] de Phone Number [facility] [address] [place] [address] from Last 3 Months Insurance [facility] ([id number]) [place] [phone] [facility] ([id number]) [place] [phone]
--- OUTSIDE RECORDS SUMMARY | 2024-09-10 17:47 | XMS_ITS | Encounter Summary ---
Author Organization [employer] Address [address] [place] [address] Care Team Providers Care Air Defense Control Officer Name Role Phone Sammy Reilly MD Primary Care Provide r Reason for Visit * Reason Comments Med Refill Encounter Details Date Type Department Care Team ([facility] st Contact Info) Description 06/16/2024 Refill [facility] [address] [place] [address] Messi Mccollum MD [address] [place] [address] Uncomplicated opioid dependence (CMS/HCC) Social History Tobacco [...] the past 12 months, has t he [place] community [facility], gas, oil or water IP [employer] threatened to shut off services in your [...] Description 09/26/2024 1:00 PM EDT Office Visit [facility] [address] [place] [phone] Messi Mccollum MD [address] [place] [phone] 10/14/2024 2:15 PM EDT Telemedicine [facility] [address] [place] [phone] Sammy Reilly MD [address] [place] [phone] documented as of this encounter Goals Goal [...] documented as of this encounter Care Teams Air Defense Control Officer Relationship Specialty Start Date End Date Sammy Reilly MD [address] [place] [phone] PCP - General Internal Medicine 12/23/13 Adlyfe 04/08/22 Tj Larose MD Sericulturist Nephrology 04/10/24 documented as of this encounter
--- OUTSIDE RECORDS SUMMARY | 2024-09-10 17:47 | XMS_ITS | Data Portability ---
Author Organization [employer] [employer] Address [address] [place] [address] Care Team Providers Care Special Police Officer Name Role Phone HIM CCA OTHER [facility] Primary Care Provider Assessment Encounter Date Assessment Date Assessment LastModified by Organization Details LastModified Time 08/21/2022 08/21/2022 As noted, we wer e called to see this patient regarding concerns of nausea. Evaluation in the field was performed by my stacker attendant colleague, as noted above, I provided real-time [...] Assessment and Plan as documented by the Flash Designer. Patient given the opportunity to ask questions. Our service contacted for an assessment of: HTN As per above, patient with known HTN (poorly controlled) and ESRD on HD T, TH, Sat. Took her BPs meds and then took her meds. Noted to be high and RN called for a recheck. Per stacker attendant on the scene, patient took meds within 2 hours. Going for HD tomorrow. asymptomatic and denies CP, SOB, SEAMAN, HANCOCK, change in vision. Feels the same as usual. Impression: HTN and ESRD Plan: Continue to take scheduled meds. Attend HD in AM. Follow up with your Pumping Station Supervisor in AM for medications adjustments. Discussed red [...] serious symptoms [email or web address] Not available 09/10/2023 18:20:51 08/11/2024 08/11/2024 As noted, we wer e called to see this patient regarding concerns of sore throat. Evaluation in the field was performed by my stacker attendant colleague, as noted above, I provided real-time direction and supervision for this visit. Patient has been having a sore throat for 2 days. She also has had some vomiting. She has been constipated. They deny any fever, runny nose, shortness of breath, abdominal pain, chest pain. Rapid strep is negative. COVID and flu are also negative. Will send throat culture. Presentation is consistent with viral infection. Recommended supportive care with hydration and tylenol as needed for pain. Recommend follow up with PCP. Impression: Sore throat Plan: Follow up PCP Primary care, consider labs Disposition: We discussed the diagnostic uncertainty of home visits and the risk associated with this. In this case, the patient and I felt this to be an acceptable and reasonable amount of risk given the benefit of avoiding an ED visit. We discussed the need to seek care urgently/emergentl y in the setting of any new or worsening serious symptoms, particularly fever, shortness of breath. [email or web address] Not available 08/11/2024 18:00:45 09/07/2024 09/07/2024 I have reviewed and agree with the assessment and plan as documented by the stacker attendant. I provided real-time medical direction for this encounter and was immediately available to provide additional phone-based assistance as needed. History as noted in EMR and by stacker attendant. I would add / emphasize: Patient seen for report of asymptomatic HTN by VNA. Pt w/ HTN and ESRD on HD. Now found to be more hypertensive over last several days. Denying any complaints. NO HANCOCK, or focal neuro sxs. Pt w/ painful stimulus of presume thrombosed external hemorrhoid. HTN but otherwise AVSS and well appearing w/ no acute neuro deficits per report. Low utility in obtaining POC BMP given Cr will not be an accurate measure of end organ function iso ESRD. Will tx presumed painful hemorrhoid driving at least some component of HTN with bowel reg including stool softener to prevent further straining w/ stool. Patient will have f/u vitals with HD in 2 days. PATIENT WOULD BENEFIT FROM URGENT PCP VISIT IN NEXT WEEK FOR VITALS RE-EVAL AND SXS RE-EVAL WELL FOLLOW UP ON MANAGMENT OF PRESUMED HEMORRHOID. [email or web address] Not available 09/07/2024 19:52:48 Plan of Treatment Reminders Order Date Submit Date Provider Last Modified By Organization Details Last Modified Time Details Appointments None recorded. Lab rapid strep group A, throat 2024 025 [facility], [address] [place] [address], [id number] 5 18:02:58 rapid SARS CoV 2 Ag, QL IA, respiratory specimen [address], [id number] 5 18:01:51 rapid flu (A+B) [address], [id number] 5 18:02:20 streptococc us group A, culture, throat 2024 025 [facility] (Centralized Electronic Ordering - All Locations), Patient Can Go To The Location Of Their Choice, [id number] 5 20:06:06 Referral None recorded. Procedures None recorded. Surgeries None recorded. Imaging None recorded. Medication Orders senna 8.6 mg tablet 2024 025 [facility], [address] [place] [address], [id number], 14:38:58 docusate sodium 100 mg capsule 2024 025 [facility], [address] [place] [address], [id number], 5 17:41:02 diphenhydra mine 25 mg tablet [address] [facility], [address] [place] [address], [id number], 17:13:24 ondansetron 4 mg disintegrat ing tablet [address] [facility], [address] [place] [address], [id number], 17:13:24 Patient TargetsNo targets recorded. Patient InstructionsNo instructions recorded. Reason for Referral None Reported. Results Created Date Observation Date Name Description Value Unit Range Abnormal Flag Note LastModifiedBy Organization Detail LastModifiedTime 08/12/1908/14/2024 BETA STREP GP A CULTU RE beta strep gp A culture Negati ve Refer ence Range : Negat christiano Not Available [facility] ([facility]) [address] [facility], [place], [address], 08/14/2024 20:06:06 08/12/19 25 08/11/2024 rapid flu (A+B) Flu negati ve Not Available Main - [facility] ed [address] [place] [address], [id number] 08/11/2024 16:21:50 08/12/19 25 08/11/2024 rapid strep group A, throa t Strep negati ve Not Available Main - [facility] [address] [place] [address], [id number] 08/11/2024 16:21:47 08/12/19 25 08/11/2024 rapid SARS CoV 2 Ag, QL IA, respi rator y speci men rapid SARS CoV 2 Ag, QL IA, respiratory specimen negati ve Not Available Main - [facility] [address] [place] [address], [id number] 08/11/2024 16:21:49 Result Notes None recorded. Medical Equipment None Reported. Allergies No known drug allergies Medications Name Sig Start Date Stop Date Status Note LastModified by Organization Details LastModified Time losartan 50 mg tablet TAKE 1 TABLET BY MOUTH EVERY DAY IN THE MORNING active Not Available Not Available No t Available terconazole 0.4 % vaginal cream INSERT 1 APPLICATORF UL VAGINALLY AT BEDTIME FOR 7 DAYS active Not Available Not Available N ot Available carvedilol 25 mg tablet TAKE 1 TABLET BY MOUTH TWICE DAILY active Not Available Not Available No t Available clonidine HCl 0.1 mg tablet TAKE 1 TABLET BY MOUTH THREE TIMES DAILY active Not Available Not Available Not Available carvedilol 6.25 mg tablet TAKE 1 TABLET BY MOUTH TWICE DAILY IN THE MORNING AND IN THE EVENING WITH MEALS active Not Available Not Available N ot Available prednisone 10 mg tablet TAKE 1 TABLET BY MOUTH EVERY DAY active Not Available Not Available No t Available carvedilol 12.5 mg tablet TAKE 1 TABLET BY MOUTH TWICE DAILY WITH MEALS active Not Available Not Available No [...] nebulization INHALE 1 AMPULE USING A NEBULIZER EVERY 6 HOURS NEEDED FOR WHEEZING active Not Available Not Available No t Available trazodone 50 mg tablet TAKE 1 TABLET BY MOUTH AT BEDTIME NEEDED FOR SLEEP active Not Available Not Available No t Available polyethylene glycol 3350 17 gram oral powder packet MIX 1 PACKET IN WATER TWICE DAILY WITH MEALS FOR CONSTIPATIO N active Not Available Not Available No t Available azithromycin 250 mg tablet TAKE 2 TABLETS BY MOUTH ON DAY 1, THEN TAKE 1 TABLET DAILY ON DAYS 2-5 active Not Available Not Available No t Available diltiazem CD 180 mg capsule,exte nded release 24 hr TAKE 2 CAPSULES BY MOUTH EVERY DAY active Not Available Not Available No t Available senna 8.6 mg tablet Take 2 tablets every day by oral route for 7 days. 2024 active Not Available Not Available Not Avai lable ondansetron HCl 4 mg tablet TAKE 1 TABLET BY MOUTH EVERY TWELVE HOURS NEEDED FOR NAUSEA AND VOMITING active Not [...] Available Not Available No t Available amlodipine 5 mg tablet TAKE 2 TABLETS BY MOUTH EVERY DAY active Not Available Not Available No t Available SPS (with sorbitol) 15 gram-20 gram/60 mL oral suspension DRINK 120 ML (30 GRAM) BY MOUTH ON SUNDAY, SUNDAY AND SUNDAY active Not Available Not Available N ot Available aspirin 81 mg tablet,delay ed release TAKE 1 TABLET BY MOUTH EVERY DAY active Not Available Not Available No t Available acetaminophe n 500 mg tablet TAKE 1 TABLET BY MOUTH EVERY 8 HOURS NEEDED FOR PAIN active Not Available Not Available No t Available isosorbide dinitrate 30 mg tablet TAKE 1 TABLET BY MOUTH THREE TIMES DAILY active Not Available Not Available Not Available hydrocortiso ne 2.5 % topical cream with perineal applicator APPLY RECTALLY TWICE DAILY NEEDED FOR PAIN active Not Available Not Available No t Available clonidine HCl 0.2 mg tablet TAKE 1 TABLET BY MOUTH TWICE DAILY active Not Available Not Available No t Available trazodone 100 mg tablet TAKE 1 TABLET BY MOUTH AT BEDTIME NEEDED for SLEEP active Not Available Not Available No [...] Not Available docusate sodium 100 mg capsule Take 1 capsule every day by oral route for 7 days. 2024 active Not Available Not Available Not Avai lable gabapentin 300 mg capsule TAKE 1 CAPSULE [...] with needle 0.3 mL 31 gauge x 10/03 active Not Available Not Available Not Available hydralazine 50 mg tablet TAKE 1 TABLET BY MOUTH THREE TIMES DAILY active Not Available Not Available Not Available mupirocin 2 % topical ointment APPLY TOPICALLY TO THE AFFECTED AREA(S) THREE TIMES DAILY FOR 10 DAYS active Not Available Not Available No t Available Diabetic Tussin DM 10 mg-100 mg/5 mL oral liquid Take 10 mL every 4 hours by oral route as needed for 5 days. 2021 active Not Available Not Available Not Avai lable mirtazapine 15 mg tablet TAKE 1 TABLET BY MOUTH EVERY DAY AT BEDTIME active Not Available Not Available No t Available polyethylene glycol 3350 17 gram/dose oral powder MIX 17 GRAMS WITH WATER AND DRINK ONCE DAILY. CAN INCREASE TO TAKE EVERY 12 HOURS UNTIL LOOSE STOOL active Not Available Not Available No t Available ondansetron 4 mg disintegrati ng tablet Place 1 tablet by translingua l route. 2021 active Not Available Not Available Not Avai lable fluticasone propionate 110 mcg/actuatio n HFA aerosol inhaler INHALE 1 PUFF BY MOUTH TWICE DAILY active Not Available Not Available No t Available Ventolin HFA 90 mcg/actuatio n aerosol inhaler INHALE 2 PUFFS BY MOUTH EVERY 4 TO 6 HOURS NEEDED FOR COUGH, WHEEZING, OR SHORTNESS OF BREATH active Not Available [...] acetate(phos phate binders) 667 mg capsule TAKE 2 CAPSULES BY MOUTH THREE TIMES DAILY WITH MEALS and TAKE 1 CAPSULE WITH SNACKS active Not Available Not Available Not Available lactulose 10 gram/15 mL oral solution GIVE 15 ML BY MOUTH EVERY DAY NEEDED FOR CONSTIPATIO N active Not Available Not Available No t Available ramelteon 8 mg tablet TAKE 1 TABLET BY MOUTH EVERY DAY AT BEDTIME NEEDED FOR SLEEP active Not Available Not Available No t Available UltiCare Pen Needle 31 gauge x 1/4 USE FOUR TIMES DAILY DIRECTED active Not Available Not Available Not Available peg 3350-electro lytes 236 gram-22.74 gram-6.74 gram-5.86 gram solution MIX WITH WATER AND DRINK 8 OUNCES EVERY 2 HOURS UNTIL TIENE BOWEL MOVEMENT LARGE. TAKE NEEDED FOR CONSTIPATIO N active Not Available Not Available No t Available FreeStyle Lite Strips USE TO TEST BLOOD SUGAR THREE TIMES DAILY active Not Available Not Available No t Available Lantus Solostar U-100 Insulin 100 unit/mL [...] GRAMS TO AFFECTED AREA(S) TWICE DAILY DIRECTED active Not Available Not Available Not Available melatonin 5 mg tablet TAKE 1 TABLET BY MOUTH DAILY AT BEDTIME NEEDED FOR SLEEP active Not Available Not Available No t Available buprenorphin e 8 mg-naloxone 2 mg sublingual film DISSOLVE 2 FILMS UNDER THE TONGUE ONCE DAILY active Not Available Not Available N ot Available TRUEplus Lancets 33 gauge TEST BLOOD SUGAR FIVE TIMES DAILY active Not Available Not Available Not Available buprenorphin e 12 mg-naloxone 3 mg sublingual film DISSOLVE 1 FILM UNDER THE TONGUE EVERY DAY active Not Available Not Available No t Available TRUEplus Glucose 3.75 gram chewable tablet CHEW 4 TABLETS BY MOUTH NEEDED HYPOGLYCEMI A active Not Available Not Available No t Available Lokelma 10 gram oral powder packet DISSOLVE 1 PACKET IN WATER DIRECTED AND TAKE ONCE DAILY ON SUNDAY, SUNDAY AND SUNDAY active Not Available Not Available N ot Available Reguloid (psyllium husk-sucrose ) 3 gram/12 gram oral powder MIX 1 TABLESPOONF UL IN 8 OUNCES OF WATER AND DRINK EVERY DAY active Not Available Not Available No t Available Vitals Date Recorded Body weight Respiratory rate Body temperature Heart rate Oxygen saturation Oxygen saturation in Arterial blood by Pulse oximetry Body height Systolic blood pressure Diastolic blood pressure Provider Name and Address Organization Details Last Updated DateTime 4 73673.8 g 18 /min 98.2 [degF] 82 /min 98 % 98 % 154.94 cm 194 mm[Hg] 100 mm[Hg] Not Available [employer] 4 18:13:07 Date Recorded Body height Oxygen saturation Oxygen saturation in Arterial blood by Pulse oximetry Respiratory rate Body temperature Heart rate Body weight Systolic blood pressure Diastolic blood pressure Provider Name and Address Organization Details Last Updated DateTime 5 152.4 cm 93 % 93 % 15 /min 98.8 [degF] 77 /min 38760.6 16 g 181 mm[Hg] 78 mm[Hg] Not Available [employer] 5 16:17:37 Date Recorded Body temperature Heart rate Respiratory rate Oxygen saturation Oxygen saturation in Arterial blood by Pulse oximetry Systolic blood pressure Diastolic blood pressure Provider Name and Address Organization Details Last Updated DateTime 5 98 [degF] 77 /min 14 /min 99 % 99 % 210 mm[Hg] 106 mm[Hg] Not Available [employer] 5 16:57:16 Date Recorded Respiratory rate Body temperature Oxygen [...] mm[Hg] 154 mm[Hg] 83 mm[Hg] Not Available [employer] 2 18:00:34 Date Recorded Body weight Heart [...] Address Organization Details Last Updated DateTime 3 25536.2 24 g 48 /min 18 /min 96 % 96 % 154.94 cm 97.9 [degF] 94068.2 24 g 48 /min 96 % 96 % 18 /min 97.9 [degF] 154.94 cm 113 mm[Hg] 69 mm[Hg] 113 mm[Hg] 69 mm[Hg] Not Available [employer] 3 17:35:34 Social History None recorded. Functional [...] Note [id number] Lázaro Tobar MD [facility] - [facility] [address] [place] [phone] 12/12/2021 18:56:07 02/09/2022 18:42:13 Cough 03171060 R05.1 Acute sherie l bronchitis [id number] J20.8 4855 Duke Barkley MD Main - [facility] [address] [place] [phone] 03/15/2022 17:06:51 03/21/2022 15:11:00 Nausea 492328152 R11.0 Reports nausea after hemodialys is and [...] by care team. 9084 KHLOE BRADLEY MD Main - [facility] [address] [place] [phone] 08/21/2022 16:56:47 08/22/2022 22:48:09 Chronic low back pain 718161724 M54.50 back pain has been present for several days but similar to prior episodes according to pt. Nausea 948557080 R11.0 constellat [place] [id number] Felisha Rothman MD Main - [facility] [address] [place] [phone] 09/10/2023 18:13:05 09/10/2023 21:09:31 Hypertensive disorder 18477179 I10 [id number] Jaxon Romero MD Main - [facility] [address] [place] [phone] 08/11/2024 15:53:35 08/11/2024 20:19:42 Sore throat 060156205 J02.9 [id number] Ariel Rangel MD Main - [facility] [address] [place] [phone] 09/07/2024 16:57:14 09/08/2024 14:48:15 External hemorrhoids 60665176 K64.4 Health Concerns Section Related Observation LastModified by Organization Detai ls LastModified Time None Recorded Concern Status LastModified by Organization Details LastModified Time None Recorded Advance Directives Directive None Recorded Payers Encounter Date Sequence Insurance Name Policy Number Policy Finley Covered Member ID Finley Member ID Guarantor Name 03/15/2022 1 [employer] - DOS PRIOR TO 2022 - DUAL ELIGIBLE (MEDICARE REPLACEMENT/ADV ANTAGE - HMO) Cruz Muller [id number] Ebenezer Muller 08/21/2022 1 [facility] [employer] - DOS PRIOR TO 2022 - DUAL ELIGIBLE (MEDICARE REPLACEMENT/ADV ANTAGE - HMO) Cruz Muller [id number] Cruz Sol Muller 09/10/2023 1 [facility] [employer] - DOS ON OR AFTER 2022 - DUAL ELIGIBLE - CARE HOME OPTIONS AND ONE CARE (MEDICARE REPLACEMENT/ADV ANTAGE - HMO) Cruz Muller [id number] Cruz Muller 08/11/[address] [facility] [place] [place] - DOS ON OR AFTER 2022 - DUAL ELIGIBLE - CARE HOME OPTIONS AND ONE CARE (MEDICARE REPLACEMENT/ADV ANTAGE - HMO) Cruz Muller [id number] Cruz Muller 09/07/[address] [facility] [place] [place] - DOS ON OR AFTER 2022 - DUAL ELIGIBLE - CARE HOME OPTIONS AND ONE CARE (MEDICARE REPLACEMENT/ADV ANTAGE - HMO) Cruz Muller [id number] Cruz Muller Notes Date Note Type Note Provider Name and Address Organization Details Recorded Time 03/15/2022 text/html HPI: Pt with hx of itching x 1 month, was nauseous in AM and had 1 episode of vomiting. Unable to obtain rx for anti emetic and anti-itching medication PCP prescribed. PCP can't see pt until 04/13/2022, please check VS. Might need fluids. Member was dc home from [facility] on 03/13/22 where she was treated for CHF and Respiratory Failure on 03/10/22 , is on Dialysis 3 days a week. Pt is 66-year-old female with past medical history of CHF, ESRD on dialysis presents the [facility] with nausea vomiting as well as dyspnea found to have CHF exacerbation, treated and dc home on 03/13/22. No cardiac or respiratory distress reported by member or her worker Chelly, who is willing to assist with home visit today or tomrrow. ..................... ..................... ..................... ..................... ..................... ..................... ............... CRC Nursing Assessment: Comments: CRC RN did not require any additional information to process this visit. 03/14 5:53p- call to SAHARA Spaulding to make her aware member will be seen tomorrow and that we will call with an ETA- Azeb ..................... ..................... ..................... ..................... ..................... ..................... ............... Flash Designer Note: [facility] Paramedics Farrah chacko and Janette Stern dispatched to a [facility] for a 67 you c/o nausea and itchiness. Pt was recently discharged from [facility] after resp failure\CHF, and placed on dialysis. Pt also took suboxone 2X a day. She reported that she was unable to get a rx refill. scaler packer from pt's PCP called while onscene; requested rx refills for antiemetic, itch relief, more ventolin, and a reduction in stool softener due to loose stool for 5 days. RN spoke w/ pt, scheduled a follow up appt and stated she would contact the pt's SEMICONDUCTOR DEVELOPMENT TECHNICIAN. She denied headache, dizziness, sore throat, fever, cough, CP, abd pain, urinary s/s; no redness, swelling, or hives seen or indicated. [facility] consulted; pt given 4 mg PO ondansetron and 25 mg PO diphenhydramine. Pt eating on scene before EMS departure. Red flags discussed. Need for social worker health services conveyed to ..................... ..................... ..................... ..................... ..................... ..................... ............... Disposition: Fulfilled Duke Barkley MD [address] [facility], [place], [phone], [employer] 03/15/2022 20:09:41 08/21/2022 text/html HPI: 67 yo. Peruvian speaking female, who speaks some Cambodian, illiterate, reporting having lower back pain and nausea today, stated nausea medication helped little and that her Transportation did not show for Hemodialysis as schedule. Treated for MSSA Bacteremia at [facility] from 08/07-08/18/2022. Stated to feel unwell, ? [...] Member has 4 days a dialysis at [facility]. Member has appt with PCP 09/12 and is scheduled for dialysis Sunday. ..................... ..................... ..................... ..................... ..................... ..................... ............... CRC Nursing Assessment: Comments: No additional information needed ..................... ..................... ..................... ..................... ..................... ..................... ............... Flash Designer Note From Jessika Cool: Sent to a call for a pt complaining of low back pain and nausea. SC8 arrives on scene, pt is alert and oriented, airway is patent. Pt's primary language is Peruvian, process control operator line used during assessment. Pt has chronic left kidney pain, and chronic nausea. Pt complains of constipation x 3 days, worsening kidney pain x 2 days, nausea and headache today. Pt denies dizziness, cp, sob, vomiting, diarrhea, abd pain, fever, or loc. Pt is supposed to receive dialysis Mon, Tues, Thurs, and Sat each week. Pt had a [...] noted; Extremities: no edema noted; Skin: unremarkable; [facility] consulted, [facility] Cj serves as process control operator during consult. Pt is advised to go to dialysis tomorrow as planned. If symptoms do not improve after dialysis then pt is advised to go to ED for further evaluation/treatment. Red flags discussed. Pt has no further questions. ..................... ..................... ..................... ..................... ..................... ..................... ............... Disposition: Fulfilled KHLOE BRADLEY MD [address] [facility],[address], [place], [phone], [place] [employer] 08/21/2022 19:00:33 09/10/2023 text/html HPI: research center partner requesting visit for member with HTN. BP today 184/97. Took BP medication 2 hours ago. Has not rechecked BP after medication. Asymptomatic. Denies CP, SOB, or Dizziness. ..................... ..................... ..................... ..................... ..................... ..................... ............... Flash Designer Note From J Luis Gomez: [employer] visit for female patient with reported hypertension. Pt presents conscious and alert ambulating in home. Pt had nurse present with her who dispenses her meds. Pt reports she was on the phone with critical care specialist earlier in the day and [...] her blood pressure is good. Consulted with [facility] Dr. Rothman who advised no acute treatments needed. Ensured patient had [facility]. Patient education provided. Reviewed red flags for ED. ..................... ..................... ..................... ..................... ..................... ..................... ............... Disposition: Fulfilled Felisha Rothman MD [address] [facility], [place], [phone], [employer] 09/10/2023 18:21:03 08/11/2024 text/html CRC Nurse Triage Notes (Christina Flanagan): Reason For Request: Patient has Throat pain, cold and hot, and just doesn't feel good. Denies: Increased work of breathing/labored ? with or without fever Unable to speak in full sentences without distress Discoloration of skin -cyanosis Needs to sleep sitting up, can? t catch breath Shortness of breath in setting of confusion Chief Complaints: Sore Throat PMH: Hypertension, Diabetes Mellitus Type 2 PMH Reviewed at 08/11/2024 - 14:20 Allergies Reviewed at 08/11/2024 - 14:20 Comments: Patient is experiencing cold symptoms. + chills and sore throat for the past 2 days. No known fever. Taking Tylenol as needed with no relief. + sick contact with a friend. c/o dyspnea on exertion. Education provided on the response time and the member was advised to monitor reported s/s and seek emergency treatment if needed. Flash Designer Organization Information for [employer] Legal Name: [employer].? Address: [address] [place] [id number], Collections Manager: Mayo Nguyen MD CLIA No.: [id number] Flash Designer POC Test Results from Tommy Samuel Rapid strep test (16:17:43) Strep: - Rapid influenza antigen (17:33:24) Flu: - Rapid COVID antigen (17:33:25) COVID: - ..................... ..................... ..................... ..................... ..................... ..................... ............... Flash Designer Note From Tommy Samuel: [facility] makes pt contact a 69 yo F CC of a sore throat. [facility] obtains consent and uploads electronically. [facility] obtains vital signs. PT explains for the past two days shes had difficulty swallowing an pain in the throat. Upon exam throat appears of normal pink mucosa color with no white spots or abnormalities noted. PT does explain her friend has the same symptoms but is unsure of her diagnosis. PT also has been constipated for days without a bowel movement but it is somewhat normal for her. PT has a non tender abdomen but does appear bloated and has some rigidity. PTs RN on scene says thats pretty typical for this pt. PT does have dialysis tomorrow. PT also explains no fever, sob, or cough. No runny nose either. PT does complain of n/v. No allergies are noted. [facility] contacts [facility] and explains above mentioned. A strep test is obtained and results are negative, a sample is obtained for the lab which will be brought to [facility]. PT also tests negative for flu and covid. [facility] has no other recommendations at this time. PT advised to still use Tylenol as needed and take her zofran as needed for nausea. [facility] explains [facility], PT could be treated with appropriate anti biotics if needed. In meantime tea with honey if allowed with dialysis could be helpful for sore throats. Chest pain, severe sob, fever not controlled by tylenol would be reasons to be seen in person in an emergency room, otherwise await pending lab results. PT understands. [facility] clear. [facility] Lab Orders: rapid strep group A, throat: Performed Comment: negative rapid SARS CoV 2 Ag, QL IA, respiratory specimen: Performed Comment: negative rapid flu (A+B): Performed Comment: negative streptococcus group A, culture, throat: Performed Comment: To be sent to [facility] ..................... ..................... ..................... ..................... ..................... ..................... ............... [facility] Consulted: Jaxon Romero ..................... ..................... ..................... ..................... ..................... ..................... ............... Disposition: Fulfilled Jaxon Romero MD [address] [place] [address],[address], [place], [address], [employer] 08/11/2024 18:00:49 09/07/2024 text/html CRC Nurse Triage Notes (Marcelina Singh): Reason For Request: VNA reporting 202/100 BP>refusing ED Denies: History of Heart Attack, in the setting of active chest pain Active Chest pain, radiates to neck jaw and or arm Diaphoretic/Sweating Describes as ? c rushing? Sudden onset of nausea/Vomiting and shortness of breath. Shortness of Breath Unable to speak in full sentences without distress Chief Complaints: High Blood Pressure PMH: Hypertension, Diabetes Mellitus Type 2, COPD/Asthma, Congestive Heart Failure, Coronary Artery Disease PMH Reviewed at 09/07/2024: Allergies Reviewed at 09/07/2024:37 Comments: Member's VNA calling in reporting elevated blood pressure readings. They have been high for two days. Today blood pressure is 200/102. Member is adamantly refusing ER. Member on dialysis- went yesterday. Takes blood pressure medication. Denies headaches and dizziness. Asymptomatic and refusing ER. Requesting visit for assessment. CRC RN verified identity via name/. Confirmed phone number. Education provided on expected response time and the member's visiting nurse was advised to monitor reported signs/symptoms. In agreement to seek emergency treatment if needed. Rena Singh RN ..................... ..................... ..................... ..................... ..................... ..................... ............... Flash Designer Note From Neptali Hernandez: This visit is for 69-year-old female with a history including but not limited to HTN, DM type II, COPD, CHF, CAD, CKD on HD. VNA requested a visit to address elevated blood pressure. Patient states her blood pressure is been high for the last several days and she denies any symptoms including headache, chest pain, dizziness, vision changes, shortness of breath, fevers, nausea, vomiting, diarrhea. Patient also reports what sounds like a thrombosed hemorrhoid causing additional discomfort. Next dialysis treatment is scheduled for Sunday. Patient presents awake and alert, in no acute distress and speaking full sentences. Her blood pressure is 210/106, vital signs are otherwise stable and she is afebrile. Nonfocal neurological exam. Lungs are clear throughout auscultation. Abdomen is soft, nontender, nondistended. No lower extremity edema. We discussed the diagnostic uncertainty of home visits and the risk associated with this. In this case, the patient and I felt this to be an acceptable and reasonable amount of risk given the benefit of avoiding an ED visit. I provided education on patient's prescription as well as recommend that she follow-up with her PCP tomorrow regarding her blood pressure and hemorrhoid. I instructed her to present to the emergency department for any new or worsening severe symptoms such as chest pain, severe shortness of breath, headache, dizziness, vision changes, mental status. The patient was given the opportunity to ask questions and is agreeable to this plan. ..................... ..................... ..................... ..................... ..................... ..................... ............... [facility] Consulted: Ariel Rangel ..................... ..................... ..................... ..................... ..................... ..................... ............... Disposition: Fulfilled Ariel Rangel MD [address] [place] [address],[address], [place], [address], [employer] 09/07/2024 19:52:57 OBGyn Episode No OBEpisode recorded.
--- OUTSIDE RECORDS SUMMARY | 2024-09-10 17:47 | XMS_ITS | Continuity of Care Document ---
Author Organization [employer] Address [address] [place] [address] Care Team Providers Care Consulting Sales Manager Name Role Phone HIM CCA OTHER [facility] Primary Care Provider [phone] Assessment Encounter Date Assessment Date Assessment LastModified by Organization Details LastModified Time 09/07/2024 09/07/2024 I have reviewed and agree with the assessment and plan as documented by the anime artist. I provided real-time medical direction for this encounter and was immediately available to provide additional phone-based assistance as needed. History as noted in EMR and by anime artist. I would add / emphasize: Patient seen [...] Orders senna 8.6 mg tablet 2024 025 [facility], [address] [place], [place], [phone], 5 14:38:58 docusate sodium 100 mg capsule 2024 025 [facility], [address], [place], [id number], 5 17:41:02 Patient TargetsNo targets recorded. Patient InstructionsNo instructions recorded. Reason for Referral None Reported. Medical Equipment None Reported. Allergies No known [...] No t Available Vitals Date Recorded Body temperature Heart rate Respiratory rate Oxygen saturation Oxygen saturation in Arterial blood by Pulse oximetry Systolic blood pressure Diastolic blood pressure Provider Name and Address Organization Details Last Updated DateTime 5 98 [degF] 77 /min 14 /min 99 % 99 % 210 mm[Hg] 106 mm[Hg] Not Available [facility] - production 5 16:57:16 Social History None recorded. Functional Status None recorded. Mental Status None recorded. Family History Nothing Reported. Medical History No medical history recorded. Gynecological HistoryNo gynecological history recorded. Obstetrics History GPAL:G 0 P 0 0 0 0 Past Encounters Encounter ID Performer Location Encounter Start Date Encounter Closed Date Diagnosis/Indication Diagnosis SNOMED-CT Code Diagnosis ICD10 Code Diagnosis Note [id number] Jaxon Romero MD [facility] [address] [place] [phone] 08/11/2024 15:53:35 08/11/2024 20:19:42 Sore throat 194999466 J02.9 [id number] Ariel Rangel MD [facility] [address] [place] [address] [phone] 09/07/2024 16:57:14 09/08/2024 14:48:15 External hemorrhoids 65130136 K64.4 Health Concerns Section Related Observation LastModified by Organization Detai ls LastModified Time None Recorded Concern Status LastModified by Organization Details LastModified Time None Recorded Payers Encounter Date Sequence Insurance Name Policy Number Policy Finley Covered Member ID Finley Member ID Guarantor Name 09/07/2024 1 [facility] [employer] - DOS ON OR AFTER 2022 - DUAL ELIGIBLE - ALF OPTIONS AND ONE CARE (MEDICARE REPLACEMENT/ADV ANTAGE - HMO) Cruz Muller [id number] Cruz Muller Notes Date Note Type Note Provider Name and Address Organization Details Recorded Time 09/07/2024 text/html CRC Nurse Triage Notes (Marcelina Singh): Reason For Request: VNA reporting 202/100 BP>refusing ED Denies: History of Heart Attack, in the setting of active chest pain Active Chest pain, radiates to neck jaw and or arm Diaphoretic/Sweati ng Describes as ? c rushing? Sudden onset [...] emergency treatment if needed. Rena Singh RN .................. .................. .................. .................. .................. .................. .................. ............... [employer] Faculty Member Note From Neptali Hernandez: This visit is [...] questions and is agreeable to this plan. .................. .................. .................. .................. .................. .................. .................. ............... [facility] Consulted: Ariel Rangel .................. .................. .................. .................. .................. .................. .................. ............... Disposition: Fulfilled Ariel Rangel MD [address] [place] [address],[address], [place], [address], [facility] 09/07/2024 19:52:57 OBGyn Episode No OBEpisode recorded.
--- OUTSIDE RECORDS SUMMARY | 2024-09-10 17:47 | XMS_ITS | Encounter Summary ---
Author Organization [employer] Address [address] [facility] 7t [place] [address] Care Team Providers Care Scientific Programmer Name Role Phone Sammy Reilly MD Primary Care Provide r Reason for Visit * Reason Comments Med Refill Encounter Details Date Type Department Care Team ([facility] st Contact Info) Description 10/21/2023 Refill [facility] [address] [place], [place] [phone] Sammy Reilly MD [address] [place] [address] Chronic obstructive pulmonary disease, unspecified COPD type [...] Description 09/26/2024 1:00 PM EDT Office Visit [facility] [address] [place] [phone] Messi Mccollum MD [address] [place] [address] 10/14/2024 2:15 PM EDT Telemedicine [facility] [address] [place] [address] Sammy Reilly MD [address] [place] [address] documented as of this encounter Goals Goal [...] documented as of this encounter Care Teams Scientific Programmer Relationship Specialty Start Date End Date Sammy Reilly MD [address] [place] [address] PCP - General Internal Medicine 12/23/13 [employer] 04/08/22 Tj Larose MD Mother Repairer Nephrology 04/10/24 documented as of this encounter
--- OUTSIDE RECORDS SUMMARY | 2024-09-10 17:47 | XMS_ITS | Encounter Summary ---
Author Organization [employer] Address [address] [facility] [address] 7t [place] [address] Care Team Providers Care Domestic Cleaner Name Role Phone Sammy Reilly MD Primary Care Provide r Reason for Visit * Reason Comments Med Refill Encounter Details Date Type Department Care Team (Late st Contact Info) Description 10/23/2023 Refill [facility] [address] [place], [place] [phone] Sammy Reilly MD [address] [place] [address] Constipation due to opioid therapy Social History [...] Description 09/26/2024 1:00 PM EDT Office Visit [facility] [address] [place] [phone] Messi Mccollum MD [address] [place] [address] 10/14/2024 2:15 PM EDT Telemedicine [facility] [address] [place] [address] Sammy Reilly MD [address] [place] [phone] documented as of this encounter Goals Goal [...] documented as of this encounter Care Teams Domestic Cleaner Relationship Specialty Start Date End Date Sammy Reilly MD [address] [place] [address] PCP - General Internal Medicine 12/23/13 [employer] 04/08/22 Tj Larose MD Debone Supervisor Nephrology 04/10/24 documented as of this encounter
--- OUTSIDE RECORDS SUMMARY | 2024-09-10 17:47 | XMS_ITS | Encounter Summary ---
Author Organization [employer] Address [address] [facility] [address] 7[address] [place] [address] Care Team Providers Care Marketing Underwriter Name Role Phone Sammy Reilly MD Primary Care Provide r Reason for Visit * Reason Onset Date Comments Appointment Request 07/08/2024 Encounter Details Date Type Department Care Team ([facility] st Contact Info) Description 07/08/2024 Telephone [facility] [address] [place] [address] Sammy Reilly MD [address] [place] [address] Appointment Request Social History Tobacco Use Types [...] the past 12 months, has t he [employer], gas, oil or water [employer] threatened to shut off services in your [...] 07/08/2024 3:58 PM EST Tc from pt SENIOR INFRASTRUCTURE ENGINEER stating that pt is requesting apt with PCP due to not being seen in a while and she wants to get checked up. Pt wants to give info to PCP or nurse. Contact pt SENIOR INFRASTRUCTURE ENGINEER at [phone] documented in this encounter Plan of Treatment Upcoming Encounters Date Type Department Care Team (Late st Contact Info) Description 09/26/2024 1:00 PM EDT Office Visit [facility] [address] [place] [phone] Messi Mccollum MD [address] [place] [address] 10/14/2024 2:15 PM EDT Telemedicine [facility] [address] [place] [address] Sammy Reilly MD [address] [place] [address] documented as of this encounter Goals Goal [...] documented as of this encounter Care Teams Marketing Underwriter Relationship Specialty Start Date End Date Sammy Reilly MD [address] [place] [address] PCP - General Internal Medicine 12/23/13 [employer] 04/08/22 Tj Larose MD Real Estate Valuer Nephrology 04/10/24 documented as of this encounter
--- OUTSIDE RECORDS SUMMARY | 2024-09-10 17:47 | XMS_ITS | Encounter Summary ---
Author Organization [employer] Address [address] [facility] 7t [place] [address] Care Team Providers Care Accounts Receivable Assistant Name Role Phone Sammy Reilly MD Primary Care Provide r Reason for Visit * Reason Onset Date Comments Paperwork/Forms 10/22/2023 Encounter Details Date Type Department Care Team ([facility] st Contact Info) Description 10/22/2023 Telephone [facility] [address] [place] [address] Sammy Reilly MD [address] [place] [address] Paperwork/Forms Social History Tobacco Use Types Packs/Day [...] Description 09/26/2024 1:00 PM EDT Office Visit [facility] [address] [place] [phone] Messi Mccollum MD [address] [place] [address] 10/14/2024 2:15 PM EDT Telemedicine [facility] [address] [place] [address] Sammy Reilly MD [address] [place] [address] documented as of this encounter Goals Goal [...] documented as of this encounter Care Teams Accounts Receivable Assistant Relationship Specialty Start Date End Date Sammy Reilly MD [address] [place] [address] PCP - General Internal Medicine 12/23/13 [employer] 04/08/22 Tj Larose MD Stenotypist Nephrology 04/10/24 documented as of this encounter
--- OUTSIDE RECORDS SUMMARY | 2024-09-10 17:47 | XMS_ITS | Encounter Summary ---
Author Organization [employer] Address [address] [facility] [address] 7t [place] [address] Care Team Providers Care Hris Administrator Name Role Phone Sammy Reilly MD Primary Care Provide r Reason for Visit * Reason Comments Med Refill Encounter Details Date Type Department Care Team ([facility] st Contact Info) Description 07/31/2024 Refill [facility] [address] [place] [address] Geena Umana, [facility] [address] [place] [address] Social History Tobacco Use Types Packs/Day Years [...] the past 12 months, has t he [employer], gas, oil or water company threatened to [...] 1:00 PM EDT Office Visit [facility] [address] [place] [phone] Messi Mccollum MD [address] [place] [address] 10/14/2024 2:15 PM EDT Telemedicine [facility] [address] [place] [address] Sammy Reilly MD [address] [place] [address] [phone] documented as of this encounter Goals Goal [...] documented as of this encounter Care Teams Hris Administrator Relationship Specialty Start Date End Date Sammy Reilly MD [address] [place] [address] PCP - General Internal Medicine 12/23/13 [employer] 04/08/22 Tj Larose MD Android Ui Developer Nephrology 04/10/24 documented as of this encounter
--- OUTSIDE RECORDS SUMMARY | 2024-09-10 17:47 | XMS_ITS | Encounter Summary ---
Author Organization [employer] Address [address] [facility] [address] 7[address] [place] [address] Care Team Providers Care Portfolio Consultant Name Role Phone Sammy Reilly MD Primary Care Provide r Reason for Visit * Reason Comments Med Refill Encounter Details Date Type Department Care Team ([facility] st Contact Info) Description 01/16/2024 Refill [facility] [address] [place], [place] [phone] Sammy Reilly MD [address] [place], [place] [phone] Primary hypertension Social History Tobacco Use Types [...] Description 09/26/2024 1:00 PM EDT Office Visit [facility] [address] [place] [phone] Messi Mccollum MD [address] [place] [address] 10/14/2024 2:15 PM EDT Telemedicine [facility] [address] [place] [address] Sammy Reilly MD [address] [place] [address] documented as of this encounter Goals Goal [...] documented as of this encounter Care Teams Portfolio Consultant Relationship Specialty Start Date End Date Sammy Reilly MD [address] [place] [address] PCP - General Internal Medicine 12/23/13 [employer] 04/08/22 Tj Larose MD Heavy Cleaner Nephrology 04/10/24 documented as of this encounter
--- OUTSIDE RECORDS SUMMARY | 2024-09-10 17:47 | XMS_ITS | Encounter Summary ---
Author Organization [employer] Address [address] [facility] 7t [place] [address] Care Team Providers Care Net Developer With Wcf Name Role Phone Sammy Reilly MD Primary Care Provide r Encounter Details Date Type Department Care Team ([facility] st Contact Info) Description 04/07/2024 Orders Only [facility] [address] [place], [place] [phone] Sebastián Lora MD [address] [place] [address] Social History Tobacco Use Types Packs/Day Years [...] the past 12 months, has t he [employer], gas, oil or water company threatened to [...] Office Visit [facility] [address] [place] [phone] Messi Mccollum MD [address] [place] [phone] 10/14/2024 2:15 PM EDT Telemedicine [facility] [address] [place] [address] [phone] Sammy Reilly MD [address] [place] [address] documented as of this encounter Goals Goal [...] documented as of this encounter Care Teams Net Developer With W[employer] Relationship Specialty Start Date End Date Sammy Reilly MD [address] [place] [address] PCP - General Internal Medicine 12/23/13 [employer] 04/08/22 Tj Larose MD Assistant Purchasing Manager Nephrology 04/10/24 documented as of this encounter
--- OUTSIDE RECORDS SUMMARY | 2024-09-10 17:47 | XMS_ITS | Encounter Summary ---
Author Organization [employer] Address [address] [facility] [address] 7t [place] [address] Care Team Providers Care Sap Trainer Name Role Phone Sammy Reilly MD Primary Care Provide r Reason for Visit * Reason Comments Med Refill Encounter Details Date Type Department Care Team ([facility] [place] st Contact Info) Description 05/09/2023 Refill [facility] [address] [place], [place] [phone] Sammy Reilly MD [address] [place] [address] Social History Tobacco Use Types Packs/Day Years [...] Description 09/26/2024 1:00 PM EDT Office Visit [facility] [address] [place] [phone] Messi Mccollum MD [address] [place] [address] 10/14/2024 2:15 PM EDT Telemedicine [facility] [address] [place] [address] Sammy Reilly MD [address] [place] [address] documented as of this encounter Goals Goal [...] documented as of this encounter Care Teams Sap Trainer Relationship Specialty Start Date End Date Sammy Reilly MD [address] [place] [phone] PCP - General Internal Medicine 12/23/13 [email or web address] 04/08/22 Tj Larose MD Watch Repairer Nephrology 04/10/24 documented as of this encounter
--- OUTSIDE RECORDS SUMMARY | 2024-09-10 17:47 | XMS_ITS | Encounter Summary ---
Author Organization [employer] Address [address] [facility] [address] 7t [place] [address] Care Team Providers Care Bottom Saw Operator Name Role Phone Sammy Reilly MD Primary Care Provide r Reason for Visit * Reason Onset Date Comments Appointment Request 05/24/2023 Encounter Details Date Type Department Care Team ([facility] st Contact Info) Description 05/24/2023 Telephone [facility] [address] [place] [address] Sammy Reilly MD [address] [place] [address] Appointment Request Social History Tobacco Use Types [...] 05/24/2023 11:25 AM EST Tc from patients ambulatory care nurse calling to request a follow appt with the patients PCP there is no concerns as of right now documented in this encounter Plan of Treatment Upcoming Encounters Date Type Department Care Team (Late st Contact Info) Description 09/26/2024 1:00 PM EDT Office Visit [facility] [address] [place] [address] Messi Mccollum MD [address] [place] [address] 10/14/2024 2:15 PM EDT Telemedicine [facility] [address] [place] [address] Sammy Reilly MD [address] [place] [address] documented as of this encounter Goals Goal [...] documented as of this encounter Care Teams Bottom Saw Operator Relationship Specialty Start Date End Date Sammy Reilly MD [address] [place] [address] PCP - General Internal Medicine 12/23/13 [employer] 04/08/22 Tj Larose MD Managing Cognitive Engineer Nephrology 04/10/24 documented as of this encounter
--- OUTSIDE RECORDS SUMMARY | 2024-09-10 17:47 | XMS_ITS | Encounter Summary ---
Author Organization [employer] Address [address] [place] [address] Care Team Providers Care Board Writer Name Role Phone Sammy Reilly MD Primary Care Provide r Encounter Details Date Type Department Care Team ([facility] st Contact Info) Description 06/26/2024 Telephone [facility] MED[facility]INE [address] [place], [place] [phone] Sammy Reilly MD [address] [place] [address] Social History Tobacco Use Types Packs/Day Years [...] the past 12 months, has t he Fund[employer], gas, oil or water company threatened to [...] Description 09/26/2024 1:00 PM EDT Office Visit [facility] MED[facility] [address] [place] [phone] Messi Mccollum MD [address] [place] [address] 10/14/2024 2:15 PM EDT Telemedicine [address] [phone] Sammy Reilly MD [address] [place] [address] documented as of this encounter Goals Goal [...] documented as of this encounter Care Teams Board Writer Relationship Specialty Start Date End Date Sammy Reilly MD [address] [place] [address] PCP - General Internal Medicine 12/23/13 [employer] 04/08/22 Tj Larose MD Chemical Handler Nephrology 04/10/24 documented as of this encounter
--- OUTSIDE RECORDS SUMMARY | 2024-09-10 17:47 | XMS_ITS | Encounter Summary ---
Author Organization [employer] Address [address] 7[address] [place] [address] Care Team Providers Care Director Shopper Marketing Name Role Phone Sammy Reilly MD Primary Care Provide r Reason for Visit * Reason Onset Date Comments Durable Medical Equipment 09/03/2024 Encounter Details Date Type Department Care Team ([facility] st Contact Info) Description 09/03/2024 Telephone [facility] MEDICINE [address] [place] [address] Sammy Reilly MD [address] [place] [address] Durable Medical Equipment Social History Tobacco Use Types Packs/Day Years [...] encounter Miscellaneous Notes * Telephone Encounter - Gretchen Loyola - 09/09/2024 10:17 AM EDT RX for Diapers/pull ups , Gloves , Wipes , and domut pillow signed and faxed to Anam . Confirmation received and sent to scan. If patient calls to check status on above, please advise them to contact Anam at [phone]. * Telephone Encounter - Gretchen Loyola - 09/03/2024 3:57 PM EDT DME RX for Gloves and donut pillow generated and placed on providers desk for signature. * Telephone Encounter - Gretchen Loyola - 09/03/2024 3:57 PM EDT ----- Message from Margarita Rob sent at 09/03/2024 3:23 PM EDT ----- Please generate rx for gloves and donut pillow for rectal prolapse documented in this encounter Plan of Treatment Upcoming Encounters Date Type Department Care Team (Late st Contact Info) Description 09/26/2024 1:00 PM EDT Office Visit [facility] MEDICINE [address] [place] [address] [phone] Messi Mccollum MD [address] [place] [address] [phone] 10/14/2024 2:15 PM EDT Telemedicine [facility] [address] [place] [address] [phone] Sammy Reilly MD [address] [place] [address] [phone] documented as of this encounter Goals Goal [...] Assessment Noted Time PHQ-9 Depression Total Score: 13 025 3:05 PM EDT documented as of this encounter Care Teams Director Shopper Marketing Relationship Specialty Start Date End Date Sammy Reilly MD [address] [place] [address] [phone] PCP - General Internal Medicine 12/23/13 [employer] 04/08/22 Tj Larose MD Yard Stocker Nephrology 04/10/24 documented as of this encounter
--- OUTSIDE RECORDS SUMMARY | 2024-09-10 17:47 | XMS_ITS | Clinical Summary ---
Author Organization [facility] Address [address] [place] [address] Care Team Providers Care Cat Cracker Operator Name Role Phone Sammy Strickland MD Primary Care Provider Allergies No known active allergies Medications albuterol (PROVENTIL) (0.083%) 2.5 mg/3 mL nebulizer solution Take 3 mL (2.5 mg total) by nebulization 3 times daily (every 8 hours) as needed for wheezing. Active amLODIPine (NORVASC) 10 MG tablet Take 1 tablet (10 mg total) by mouth daily. Active aspirin enteric coated 81 MG EC tablet Take 1 tablet (81 mg total) by mouth daily. Active buprenorphine-n aloxone (SUBOXONE) 8-[address] [...] inhale daily. Active cloNIDine (CATAPRES) 0.2 MG tabletIndicatio ns:Pulmonary edema Take 1 tablet (0.2 mg total) by mouth 3 (three) times a day. 21 tablet 2 Active hydrALAZINE (APRESOLINE) 100 MG tabletIndicatio ns:Pulmonary edema Take 1 tablet (100 mg total) by mouth every 8 (eight) hours around the clock. 21 tablet 2 Active isosorbide dinitrate (ISORDIL) 30 MG tabletIndicatio ns:Pulmonary edema Take 1 tablet (30 mg total) by mouth 3 (three) times a day in the morning, mid-day and early evening. 21 tablet 2 Active carvedilol (COREG) 6.25 MG tabletIndicatio ns:Pulmonary edema Take 1 tablet (6.25 mg total) by mouth 2 (two) times a day with meals. 14 tablet 2 Active gabapentin (NEURONTIN) 300 MG capsuleIndicati ons:Pulmonary edema Take 1 capsule (300 mg total) by mouth daily. 30 capsule 2 Active insulin glargine (LANtus/SEMGLEE ) 100 units/mL injectionIndica tions:Pulmonary edema Inject 0.02 mL (2 Units total) under the skin nightly. 10 mL 2 Active Alcohol Swabs 70 % PadsIndications :Acute respiratory failure with hypoxia (HCC) Use as directed. 100 Pad 2 Active Insulin Syringe-Needle U-100 31G X 5/16 0.3 ML MiscIndications :Acute respiratory failure with hypoxia (HCC) Please check with your primary care provider. 100 each 2 Active Active Problems Problem Noted Date Diagnosed [...] more drinks on one occasion? Never 03/28/2022 Comments Unknown Sex and Gender Information Value Date Recorded Sex Assigned at Not on file Legal Sex Female 6:25 PM EST Gender Identity Not on file [...] and older) Influenza Vaccine 12/20/2023 COVID-19 Vaccine (2023- season) 2024 Insurance [facility] Advance Directives * Full Code (Latest Code Status on File) Date Activated Date Inactivated Comments 03/27/2022 6:52 AM Care Teams Cat Cracker Operator Relationship Specialty Start Date End Date Sammy Strickland MD [address] [place] [address] [place] [address] PCP - General 03/27/22
--- OUTSIDE RECORDS SUMMARY | 2024-09-10 17:47 | XMS_ITS | Encounter Summary ---
Author Organization [facility] Address [address] [place] [address] Phone Care Team Providers Care Shirt Closer Name Role Phone Unavailable Primary Care Provider Unavailabl e Encounter Details Date Type Department Care Team (Late st Contact Info) Description 07/18/2022 Telephone [facility] [address] [place] [address] Concepción Cruz [place] Social History Tobacco [...]
--- OUTSIDE RECORDS SUMMARY | 2024-09-10 17:47 | XMS_ITS | Encounter Summary ---
Author Organization [employer] [facility] Address [address] [facility] [facility] [address] 7t [place] [address] Care Team Providers Care Fashion Show Director Name Role Phone Sammy Reilly MD Primary Care Provide r Reason for Visit * Reason Comments Med Refill Encounter Details Date Type Department Care Team (Late st Contact Info) Description 11/29/2022 Refill [facility] MEDICINE [address] [place] [address] Messi Mccollum MD [address] [place] [address] Tobacco use disorder Social History Tobacco Use [...] [facility] [address] [place], [place] [phone] Messi Mccollum MD [address] [place], [place] [phone] 10/14/2024 2:15 PM EDT Telemedicine [facility] MEDICINE [address] [place], [place] [phone] Sammy Reilly MD [address] [place] [address] documented as of this encounter Goals Goal [...] documented as of this encounter Care Teams Fashion Show Director Relationship Specialty Start Date End Date Sammy Reilly MD [address] [place] [phone] PCP - General Internal Medicine 12/23/13 [employer] 04/08/22 Tj Larose MD Director Embalmer Nephrology 04/10/24 documented as of this encounter
--- OUTSIDE RECORDS SUMMARY | 2024-09-10 17:47 | XMS_ITS | Encounter Summary ---
Author Organization [facility] Address [address] [place] [address] Care Team Providers Care Traffic Sergeant Name Role Phone Sammy Strickland MD Primary Care Provider [phone] Encounter Details Date Type Department Care Team [...] Recorded In the last 10 days, have sera u been in contact with someone who was confirmed or suspected to have Coronavirus/COVID-19? No / Unsure 03/27/2022 4:50 AM EST documented as of this encounter Functional Status * Audit-C Score Answer Date of Assessment Author 0 03/28/2022 2:30 PM Ton Sarabia RN * Question Answer Date of Assessment Author Q1: How often do you have a drink containing alcohol? Never 03/28/2022 2:30 PM Ton Sarabia RN Q2: How many drinks containing alcohol do you have on a typical day when you are drinking? Patient does not drink 03/28/2022 2:30 PM Ton Sarabia, RN Q3: How often do you have six or more drinks on one occasion? Never 03/28/2022 2:30 PM Ton Sarabia RN documented as of this encounter Plan of Treatment Not on file documented as of this encounter Visit Diagnoses Not on filedocumented in this encounter Care Teams Traffic Sergeant Relationship Specialty Start Date End Date Sammy Strickland MD [address] [place] [address] [place] [address] PCP - General 03/27/22 documented as of this encounter
--- OUTSIDE RECORDS SUMMARY | 2024-09-10 17:47 | XMS_ITS | Encounter Summary ---
Author Organization [employer] Address [address] [place] [address] Care Team Providers Care Logistic Specialist Name Role Phone Sammy Reilly MD Primary Care Provide r Reason for Visit * Reason Onset Date Comments FYI 08/15/2024 Encounter Details Date Type Department Care Team ([facility] st Contact Info) Description 08/15/2024 Telephone [facility] [address] [place] [address] Sammy Reilly MD [address] [place] [address] FYI Social History Tobacco Use Types Packs/Day [...] encounter Miscellaneous Notes * Telephone Encounter - Mario Gordon - 08/15/2024 4:49 PM EDT TC from [facility] with [facility] reports appeal for expedited continuation of service was denied because ptwill continue to have alf services until 09/24/24 documented in this encounter Plan of Treatment Upcoming Encounters Date Type Department Care Team (Late st Contact Info) Description 09/26/2024 1:00 PM EDT Office Visit [facility] [address] [place] [phone] Messi Mccollum MD [address] [place] [address] 10/14/2024 2:15 PM EDT Telemedicine [facility] [address] [place] [phone] Sammy Reilly MD [address] [place] [address] documented as of this encounter Goals Goal [...] documented as of this encounter Care Teams Logistic Specialist Relationship Specialty Start Date End Date Sammy Reilly MD [address] [place] [address] PCP - General Internal Medicine 12/23/13 [employer] 04/08/22 Tj Larose MD Marketing Recruiter Nephrology 04/10/24 documented as of this encounter
== END 2024-09-10 16:11 | disposition home or self-care (01) ==
LOC: HO.HOS 14:56
PROVIDERS: PCP Internal Medicine; Visit Provider Physician Assistant
DX: M17.0 Bilateral primary osteoarthritis of knee (principal)
CPT/HCPCS: 20610; 99213

== ENCOUNTER → 2024-09-10 15:01 | Outpatient (BNV) | payer OTHER, SELFPAY | PROVIDERS: Visit Provider Radiology Vascular & Interventional Radiology | DX: M17.0 Bilateral primary osteoarthritis of knee (principal) | CPT/HCPCS: 73562 ==

== ENCOUNTER 2024-09-12 16:29 | Outpatient (REF) | payer OTHER, SELFPAY ==
--- OUTSIDE RECORDS SUMMARY | 2024-09-12 16:32 | XMS_ITS | Encounter Summary ---
Author Organization [employer] Address [address] [place] [address] Care Team Providers Care Greens Keeper Name Role Phone Sammy Reilly MD Primary Care Provide r Reason for Visit * Reason Comments Med Refill Encounter Details Date Type Department Care Team ([facility] st Contact Info) Description 04/25/2023 Refill [facility] [address] [place] [address] Neptali Coles MD [address] [place] [address] Social History Tobacco Use Types Packs/Day Years [...] Description 09/26/2024 1:00 PM EDT Office Visit [facility] [address] [place] [phone] Messi Mccollum MD [address] [place] [phone] 10/14/2024 2:15 PM EDT Telemedicine [facility] [address] [place] [phone] Sammy Reilly MD [address] [place] [phone] documented as of this encounter Goals Goal [...] documented as of this encounter Care Teams Greens Keeper Relationship Specialty Start Date End Date Sammy Reilly MD [address] [place] [phone] PCP - General Internal Medicine 12/23/13 [employer] [facility] 04/08/22 Tj Larose MD Attacher Nephrology 04/10/24 documented as of this encounter
--- OUTSIDE RECORDS SUMMARY | 2024-09-12 16:32 | XMS_ITS | Encounter Summary ---
Author Organization [employer] Address [address] [place] [address] Care Team Providers Care Medical Technologist Prn Name Role Phone Sammy Reilly MD Primary Care Provide r Reason for Visit * Reason Comments Med Refill Encounter Details Date Type Department Care Team ([facility] st Contact Info) Description 04/25/2023 Refill [facility] [address] [place] [address] Messi Mccollum MD [address] [place] [address] Uncomplicated opioid dependence (CMS/HCC) Social History Tobacco [...] Description 09/26/2024 1:00 PM EDT Office Visit [facility] [address] [place] [address] [phone] Messi Mccollum MD [address] [place] [phone] 10/14/2024 2:15 PM EDT Telemedicine [facility] [address] [place] [phone] Sammy Reilly MD [address] [place] [phone] documented as of this encounter Goals Goal [...] documented as of this encounter Care Teams Medical Technologist Prn Relationship Specialty Start Date End Date Sammy Reilly MD [address] [place] [address] [phone] PCP - General Internal Medicine 12/23/13 [employer] 04/08/22 Tj Larose MD Firesetter Nephrology 04/10/24 documented as of this encounter
--- OUTSIDE RECORDS SUMMARY | 2024-09-12 16:32 | XMS_ITS | Encounter Summary ---
Author Organization [employer] Address [address] 7t [place] [address] Care Team Providers Care Migration Agent Name Role Phone Sammy Reilly MD Primary Care Provide r Reason for Visit * Reason Comments Med Refill Encounter Details Date Type Department Care Team ([facility] st Contact Info) Description 05/02/2023 Refill [facility] [address] [place] [address] Messi Mccollum MD [address] [place] [address] Uncomplicated opioid dependence (CMS/HCC) Social History Tobacco [...] 1:00 PM EDT Office Visit [facility] [address] [place] [address] [phone] Messi Mccollum MD [address] [place] [phone] 10/14/2024 2:15 PM EDT Telemedicine [facility] [address] [place] [phone] Sammy Reilly MD [address] [place] [phone] documented as of this encounter Goals Goal [...] documented as of this encounter Care Teams Migration Agent Relationship Specialty Start Date End Date Sammy Reilly MD [address] [place] [address] [phone] PCP - General Internal Medicine 12/23/13 [employer] 04/08/22 Tj Larose MD [facility] 04/10/24 documented as of this encounter
--- OUTSIDE RECORDS SUMMARY | 2024-09-12 16:32 | XMS_ITS | Encounter Summary ---
Author Organization [employer] Address [address] 7t [place] [address] Care Team Providers Care Ssds Mk 2 Advanced Operator Name Role Phone Sammy Reilly MD Primary Care Provide r Encounter Details Date Type Department Care Team ([facility] st Contact Info) Description 09/12/2024 Telephone [facility] [address] [place] [address] Sammy Reilly MD [address] [place] [address] Social History Tobacco Use Types Packs/Day Years [...] encounter Miscellaneous Notes * Telephone Encounter - Nancy Ashby - 09/12/2024 3:18 PM EDT Pharmacy [facility] attempted outreach call on 09/12/24 for CDTM - Hypertension appointment; however, unable to reach patient. LVM for patient to contact Nancy Ashby at [phone]. documented in this encounter Plan of Treatment Upcoming Encounters Date Type Department Care Team ([facility] st Contact Info) Description 09/26/2024 1:00 PM EDT Office Visit [facility] [address] [place] [phone] Messi Mccollum MD [address] [place] [address] 10/14/2024 2:15 PM EDT Telemedicine [facility] [address] [place] [address] [phone] Sammy Reilly MD [address] [place] [address] documented as of this encounter Goals Goal [...] Noted Time PHQ-9 Depression Total Score: 13 09/03/ 025 3:05 PM EDT documented as of this encounter Care Teams Ssds Mk 2 Advanced Operator Relationship Specialty Start Date End Date Sammy Reilly MD [address] [place] [address] PCP - General Internal Medicine 12/23/13 [employer] 04/08/22 Tj Larose MD Data Technician Nephrology 04/10/24 documented as of this encounter
--- OUTSIDE RECORDS SUMMARY | 2024-09-12 16:32 | XMS_ITS | Encounter Summary ---
Author Organization [employer] Address [address] [place] [address] Care Team Providers Care Printing Assistant Name Role Phone Sammy Reilly MD Primary Care Provide r Reason for Visit * Reason Onset Date Comments Care Coordination 09/12/2024 Encounter Details Date Type Department Care Team (Late st Contact Info) Description 09/12/2024 Telephone [facility] [address] [place] [address] Kinza Escamilla, CELIO Care Coordination Social History Tobacco Use Types Packs/Day Years [...] Telephone Encounter - Kinza Escamilla RN - 09/12/2024 3:27 PM EDT Telephone call from pharmacy. Stating patient has low BG and high BP. Patient was walked over to [facility] by daughter. As patient was being brought to triage room patient stated she did not know why she was there. Patient stated her sugar is fine and she wants to go home. Advised patient to sit for a minute and drink some juice. Patient said she would take juice but has a mass on her back and wants togo home. Patient started to move towards the door to leave. Patient kept insisting she wanted to gohome and lay down, patient had ride waiting for her outside. Dr. Shaver advised via secure chat. patient is very complex when I saw he she denied symptoms but is she is not feeling well it is better that she goes to the emergency room also stated if patient comes back to please tell her to go to ED. documented in this encounter Plan of Treatment Upcoming Encounters Date Type Department Care Team (Late st Contact Info) Description 09/26/2024 1:00 PM EDT Office Visit [facility] [address] [place] [address] [phone] Messi Mccollum MD [address] [place] [address] 10/14/2024 2:15 PM EDT Telemedicine [facility] [address] [place], [place] [phone] Sammy Reilly MD [address] [place], [place] [phone] documented as of this encounter Goals Goal [...] documented as of this encounter Care Teams Printing Assistant Relationship Specialty Start Date End Date Sammy Reilly MD [address] [place] [phone] PCP - General Internal Medicine 12/23/13 [employer] 04/08/22 Tj Larose MD Casket Assembler Metal Nephrology 04/10/24 documented as of this encounter
--- OUTSIDE RECORDS SUMMARY | 2024-09-12 16:33 | XMS_ITS | Encounter Summary ---
Author Organization [facility] Address [address] [facility] 7t [place] [address] Care Team Providers Care Actuarial Analyst Name Role Phone Sammy Reilly MD Primary Care Provide r Reason for Visit * Reason Comments Med Refill Encounter Details Date Type Department Care Team ([facility] st Contact Info) Description 11/29/2022 Refill [facility] [address] [place] [address] Messi Mccollum MD [address] [place] [address] Tobacco use disorder Social History Tobacco Use [...] 1:00 PM EDT Office Visit [facility] [address] [place] [address] [phone] Messi Mccollum MD [address] [place] [phone] 10/14/2024 2:15 PM EDT Telemedicine [facility] [address] [place] [address] [phone] Sammy Reilly MD [address] [place], [place] [phone] documented as of this encounter Goals Goal [...] documented as of this encounter Care Teams Actuarial Analyst Relationship Specialty Start Date End Date Sammy Reilly MD [address] [place] [phone] PCP - General Internal Medicine 12/23/13 [employer] 04/08/22 Tj Larose MD School Janitor Nephrology 04/10/24 documented as of this encounter
--- OUTSIDE RECORDS SUMMARY | 2024-09-12 16:33 | XMS_ITS | Clinical Summary ---
Author Organization [facility] Address [address] [place] [phone] Care Team Providers Care Induction Coordination Power Engineer Name Role Phone Sammy Strickland MD Primary [...] 12/20/2023 COVID-19 Vaccine (2023- season) 2024 Insurance [employer] Advance Directives * Full Code (Latest Code Status on File) Date Activated Date Inactivated Comments 03/27/2022 6:52 AM Care Teams Induction Coordination Power Engineer Relationship Specialty Start Date End Date Sammy Strickland MD [address] [place] [address] [place] [address] PCP - General 03/27/22
--- OUTSIDE RECORDS SUMMARY | 2024-09-12 16:33 | XMS_ITS | Encounter Summary ---
Author Organization [facility] Address [address] [place] [address] Care Team Providers Care Manufacturing Engineer Machining Name Role Phone Sammy Reilly MD Primary Care Provide r Reason for Referral * Consultation (Routine) - Pending Review Specialty Diagnoses / Procedures Referred By Naomi ortiz Referred To Contact Podiatry Diagnoses Right foot pain Heidy Kunz MD [address] [place] [id number] Phone: tel: fax: Referral ID Status Reason Start Date Expiration Date Visits Requested Visits Authorized [id number] Pending Review Specialty Services Required 09/12/2024 09/12/2025 1 1 * Consultation (Urgent) - Authorized Specialty Diagnoses / Procedures Referred By Contbrayden ortiz Referred To Contact Pharmacy Diagnoses Uncontrolled hypertension Heidy Kunz MD [address] [place] [address] Phone: tel: fax: Referral ID Status Reason Start Date Expiration Date Visits Requested Visits Authorized [id number] Authorized Consult and Treat 09/12/2024 09/12/2025 6 6 Reason for Visit * Reason Comments Vaginitis/Bacterial Vaginosis Encounter Details Date Type Department Care Team (Late st Contact Info) Description 09/12/2024 1:00 PM EDT Office Visit [facility] [address] [place] [address] Heidy Kunz MD [address] [place] [address] Uncontrolled hypertension (Primary Dx); Vaginal itching; Rectal prolapse; Right foot pain Social History Tobacco Use Types Packs/Day Years [...] Sign Reading Time Taken Comments Blood Pressure 200/95 09/12/2024 1:04 PM EDT Pulse 81 09/12/2024 1:04 PM EDT Temperature 36.4 ??C (97.6 ??F) 09/12/2024 1:04 PM ED T Respiratory Rate 20 09/12/2024 1:04 PM EDT Oxygen Saturation 97% 09/12/2024 1:04 PM EDT Inhaled Oxygen Concentration - - Weight - - Height - - Body Mass Index - - documented in this encounter Progress Notes * Heidy Vargas MD - 09/12/2024 1:00 PM EDT SUBJECTIVE: Cruz Muller is a 69 y.o. year old female who presents for sick visit . Acute Concerns: Vaginal itchiness for 2 days: Patient reports she has been having vaginal itchiness since yesterdaywhile she was having her dialysis, she denies any vaginal discharge pelvic pain or other symptoms Ball on her rectal area: On review of chart patient has been having rectal prolapse for the past year, she has been seen in the emergency room and at the hospital for this it was attempted to introduce the rectum but it always comes out again, patient is very uncomfortable with this Uncontrolled high blood pressure: During hospitalization blood pressure was very high they discontinue hydralazine 50 mg every 8 hours and put her on clonidine patch, today blood pressure is very high but she is asymptomatic regarding this meaning she does not have any headache, chest pain, shortness of breath, palpitations, weakness, numbness or other related symptoms Patient today also complaining of pain on her right foot plantar area Social History Social History Narrative Not on file Patient Active Problem List Diagnosis Anemia Anxiety Chronic low back pain Chronic obstructive lung disease (CMS/HCC) Combined drug dependence excluding opioids (CMS/HCC) Depressive disorder End-stage renal disease on hemodialysis (CMS/HCC) Diabetes mellitus, type II (CMS/HCC) Hypertension Chronic pain of both knees Obesity Mantoux: positive Osteoarthritis of knee Posterior subcapsular polar senile cataract Presbyopia Renal cyst, left Smoker Thyroid nodule Urinary incontinence Renal artery aneurysm (CMS/HCC) Thickened endometrium Constipation Chronic diastolic congestive heart failure (CMS/HCC) Preventative health care Hemorrhoids Hyperkalemia Hospital discharge follow-up Rectal prolapse Hepatitis C virus infection, unspecified chronicity Uncomplicated opioid dependence (CMS/HCC) Uncontrolled hypertension Vaginal itching Right foot pain No family history on file. Review of Systems Constitutional: Negative. HENT: Negative. Respiratory: Negative. Cardiovascular: Negative. Gastrointestinal: Positive for rectal pain. Negative for abdominal distention and abdominal pain. OBJECTIVE: Vitals: 09/12/24 1304 BP: (!) 200/95 BP Location: Left arm Patient Position: Standing BP Cuff Size: Adult Pulse: 81 Resp: 20 Temp: 97.6 ??F (36.4 ??C) TempSrc: Temporal SpO2: 97% Physical Exam Constitutional: Appearance: Normal appearance. Cardiovascular: Rate and Rhythm: Normal rate and regular rhythm. Pulmonary: Effort: Pulmonary effort is normal. Breath sounds: Normal breath sounds. Abdominal: General: Abdomen is flat. Palpations: Abdomen is soft. Genitourinary: Vagina: No vaginal discharge. Comments: Severe rectal prolapse Neurological: Mental Status: She is alert. Follow Up: No follow-ups on file. Current Outpatient Medications on File Prior to Visit Medication Sig Dispense Refill Acetaminophen Extra Strength 500 MG tablet TAKE 1 TABLET BY MOUTH EVERY 8 HOURS NEEDED FOR PAIN 30 tablet 9 albuterol (2.5 MG/3ML) 0.083% nebulizer solution INHALE 1 AMPULE USING A NEBULIZER EVERY 6 HOURS ASNEEDED FOR WHEEZING 90 mL 3 albuterol (Ventolin HFA) 108 (90 Base) MCG/ACT inhaler INHALE 2 PUFFS BY MOUTH EVERY 4 TO 6 HOURS NEEDED FOR COUGH, WHEEZING, OR SHORTNESS OF BREATH 18 g 3 Alcohol Swabs (SM Alcohol Prep) 70 % pads USE DIRECTED amLODIPine (Norvasc) 10 MG tablet Take 1 tablet by mouth Once per day. Aspirin Adult Low Strength 81 MG EC tablet TAKE 1 TABLET BY MOUTH EVERY DAY 30 tablet 11 B Njhaqdj-X-Cwkbk Acid (Elle-Sharifa Rx) 1 MG tablet TAKE 1 TABLET BY MOUTH EVERY DAY 90 tablet 3 Banophen 25 MG capsule TAKE 1 CAPSULE BY MOUTH EVERY DAY NEEDED FOR ALLERGIES Blood Glucose Monitoring Suppl (FreeStyle Lite) device Inject under the skin if needed. Freestyle lite meter kit Test 1 times by intradermal route every day Blood Pressure Monitoring (Omron 3 Series BP Monitor) device USE TO CHECK BLOOD PRESSURE ONCE A WEEK 1 each 0 buprenorphine-naloxone (Suboxone) 12-3 MG per sublingual film Place 1 Film under the tongue Once per day for 28 days. 1/2 film under tongue twice daily. 28 Film 0 calcium acetate (Phoslo) 667 MG capsule Take 1 capsule by mouth with meals and with snacks. Do not take more than 5 capsules in one day carvedilol (Coreg) 25 MG tablet Take 1 tablet by mouth 2 times daily. cloNIDine (Catapres-TTS) 0.3 MG/24HR Place 1 patch on the skin 1 (one) time per week. Remove old patch prior to applying a new one 4 patch 2 Diclofenac Sodium 1 % gel APPLY 2 GRAMS TO AFFECTED AREA(S) TWICE DAILY DIRECTED 100 g 2 docusate sodium (Colace) 100 MG capsule Take 1 capsule (100 mg) by mouth Once per day. TAKE 2 CAPSULES BY MOUTH EVERY DAY IN THE MORNING 180 capsule 0 FREESTYLE LITE test strip Use to check blood sugar 3 times daily 100 strip 3 glucose 4 g chewable tablet Chew 4 tablets (16 g) if needed for low blood sugar. 50 tablet 12 hydrocortisone (Anusol-HC) 2.5 % rectal cream APPLY RECTALLY TWICE DAILY NEEDED 30 g 0 isosorbide dinitrate (Isordil) 30 MG tablet TAKE 1 TABLET BY MOUTH THREE TIMES DAILY 90 tablet 2 lactulose (Chronulac) 10 GM/15ML solution TAKE 15 ML BY MOUTH EVERY DAY PRN for CONSTIPATION 473 mL3 Lokelma 10 g packet Take 10 g by mouth. Dissolved 1 packet as directed and take once daily on Sunday, Sunday and Sunday losartan (Cozaar) 100 MG tablet Take 1 tablet by mouth Once per day. melatonin 5 MG tablet TAKE 1 TABLET BY MOUTH EVERY DAY AT BEDTIME NEEDED FOR SLEEP 30 tablet 3 mirtazapine (Remeron) 15 MG tablet Take 1 tablet by mouth Once daily. mupirocin (Bactroban) 2 % ointment APPLY TOPICALLY TO THE AFFECTED AREA(S) THREE TIMES DAILY FOR 10DAYS 22 g 0 nicotine (Nicoderm, Step 2) 14 MG/24HR patch APPLY 1 PATCH TOPICALLY TO THE SKIN IN THE MORNING *DONOT SMOKE WHILE USING PATCH* 28 patch 2 nicotine polacrilex (Commit) 2 MG lozenge Dissolve 1 lozenge (2 mg) in the mouth if needed for smoking cessation. 100 lozenge 0 Nutritional Supplements (Glucerna Shake) liquid drink one can twice a day 237 mL 11 ondansetron (Zofran) 4 MG tablet TAKE 1 TABLET BY MOUTH EVERY TWELVE HOURS FOR NAUSEA AND VOMITING 20 tablet 9 pantoprazole (ProtoNix) 40 MG EC tablet TAKE 1 TABLET BY MOUTH EVERY MORNING. DO NOT BREAK, CRUSH, DISSOLVE OR CHEW. 90 tablet 1 polyethylene glycol, PEG, 3350 (Glycolax) 17 GM/SCOOP powder Mix 17g (1 capful) in 8 ounces of water and take by mouth every day 510 g 2 sennosides (Senokot) 8.6 MG tablet TAKE 2 TABLETS BY MOUTH AT BEDTIME Spacer/Aero-Holding Chambers (Compact Space Chamber) device Space chamber use with albuterol pump traZODone (Desyrel) 100 MG tablet Take 1 tablet by mouth at bedtime. TRUEplus Lancets 33G misc TEST BLOOD SUGAR FIVE TIMES DAILY 100 each 11 No current facility-administered medications on file prior to visit. Problem List Items Addressed This Visit Uncontrolled hypertension - Primary Blood pressure was very high today I advised low-sodium diet I advised to take her medications without missing any dose she does have VNA I called her today her name is Heidy she is she tells me she takes all her meds with exception of hydralazine which was discontinued after hospitalization, I decided today to restart her hydralazine 50 mg 3 times a day I referred patient to pharmacy CDTM ED precautions were reviewed with patient I let her know if she starts having chest pain, shortnessof breath, dizziness, weakness or numbness to go immediately to emergency room or call the ambulance Relevant Medications hydrALAZINE (Apresoline) 50 MG tablet Other Relevant Orders Referral to Pharmacy CDTM Vaginal itching I will prescribe clotrimazole cream empirically and also fluconazole pill for the vaginal itchiness BV test done patient will be contacted with results Relevant Medications clotrimazole (Gyne-Lotrimin) 1 % vaginal cream fluconazole (Diflucan) 150 MG tablet Other Relevant Orders Bacterial Vaginosis Panel Rectal prolapse I took today to Heidy her VNA she tells me she does have an upcoming appointment with surgery she does not know exactly the date tells me SUPERVISOR [employer]OPELL[employer] LOADING knows, I tried to contact also SUPERVISOR [employer] but I was unsuccessful I advised patient to be sure she has that appointment and do not miss it Right foot pain I refer patient to podiatry Relevant Orders Referral to Podiatry documented in this encounter Miscellaneous Notes * Assessment & Plan Note - Heidy Vargas MD - 09/12/2024 4:17 PM EDT Associated Problem(s): Right foot pain I refer patient to podiatry * Assessment & Plan Note - Heidy Vargas MD - 09/12/2024 4:17 PM EDT Associated Problem(s): Rectal prolapse I took today to Heidy her VNA she tells me she does have an upcoming appointment with surgery she does not know exactly the date tells me SUPERVISOR [employer] knows, I tried to contact also SUPERVISOR [employer] but I was unsuccessful I advised patient to be sure she has that appointment and do not miss it * Assessment & Plan Note - Heidy Vargsa MD - 09/12/2024 4:16 PM EDT Associated Problem(s): Uncontrolled hypertension Blood pressure was very high today I advised low-sodium diet I advised to take her medications without missing any dose she does have VNA I called her today her name is Heidy she tells me she takes all her meds with exception of hydralazine which was discontinued after hospitalization, I decided today to restart her hydralazine 50 mg 3 times a day I referred patient to pharmacy CDTM ED precautions were reviewed with patient I let her know if she starts having chest pain, shortnessof breath, dizziness, weakness or numbness to go immediately to emergency room or call the ambulance * Assessment & Plan Note - Heidy Vargas MD - 09/12/2024 4:15 PM EDT Associated Problem(s): Vaginal itching I will prescribe clotrimazole cream empirically and also fluconazole pill for the vaginal itchiness BV test done patient will be contacted with results documented in this encounter Plan of Treatment Upcoming Encounters Date Type Department Care Team (Late st Contact Info) Description 09/26/2024 1:00 PM EDT Office Visit [facility] [address] [place] [id number] Messi Mccollum MD [address] [place] [phone] 10/14/2024 2:15 PM EDT Telemedicine [facility] [address] [place] [phone] Sammy Reilly MD [address] [place] [address] Scheduled Orders Name Type Priority Associated Diagnoses Orde r Schedule Bacterial Vaginosis Panel Microbiology Routine Vaginal itching Ordered: 09/12/2024 Scheduled Referrals Name Type Priority Associated Diagnoses Orde r Schedule Referral to Pharmacy CDTM Outpatient Referral Urgent Uncontrolled hypertension Ordered: 09/12/2024 Referral to Podiatry Outpatient Referral Routine Right foot pain Expected: 09/12/2024 (Approximate), Expires: 09/12/2025 documented as of this encounter Goals Goal Patient Goal Type Associated Problems Recent Progress Patient-Stated? Author Check and record your blood sugars as directed Blood Pressure No Jimbo Burris, PharmD Short-term: Promote adherence to treatment regimen General No Jimbo Burris PharmJonathan Take your medication every day Lifestyle No Jimbo Burris PharmD documented as of this encounter Visit Diagnoses Diagnosis Uncontrolled hypertension- Primary Vaginal itching Pruritus of genital organs Rectal prolapse Right foot pain Pain in soft tissues of limb documented in this encounter Additional Health Concerns Assessment Noted Time PHQ-9 Depression Total Score: 13 09/03/ 025 3:05 PM EDT documented as of this encounter Care Teams Manufacturing Engineer Machining Relationship Specialty Start Date End Date Sammy Reilly MD [address] [place] [phone] PCP - General Internal Medicine 12/23/13 [employer] 04/08/22 Tj Larose MD [employer] System Operator Nephrology 04/10/24 documented as of this encounter
--- OUTSIDE RECORDS SUMMARY | 2024-09-12 16:33 | XMS_ITS | Encounter Summary ---
Author Organization [facility] Address [address] [place] [address] Care Team Providers Care Straightening Machine Operator Name Role Phone Sammy Reilly MD Primary Care Provide r Reason for Visit * Reason Comments Med Refill Encounter Details Date Type Department Care Team (Late Contact Info) Description 05/30/2022 Refill [facility] [address] [place] [address] Sammy Reilly MD [address] [place] [address] Social History Tobacco Use Types Packs/Day Years [...] Encounters Date Type Department Care Team ([facility] Contact Info) Description 09/26/2024 1:00 PM EDT Office Visit [facility] [address] [place], [place] [phone] Messi Mccollum MD [address] [place] [address] 10/14/2024 2:15 PM EDT Telemedicine [facility] [address] [facility] [place] [place] [phone] Sammy Reilly MD [address] [place], [place] [phone] documented as of this encounter Visit Diagnoses Not on filedocumented in this encounter Care Teams Straightening Machine Operator Relationship Specialty Start Date End Date Sammy Reilly MD [address] [facility] [place], [place] [phone] PCP - General Internal Medicine 12/23/13 [employer] 04/08/22 Tj Larose MD Buffing Machine Operator Nephrology 04/10/24 documented as of this encounter
--- OUTSIDE RECORDS SUMMARY | 2024-09-12 16:33 | XMS_ITS | Data Portability ---
Author Organization [employer], Id in - Private Practice Address [address] [place] [address] Care Team Providers Care Personnel Quality Assurance Auditor Name Role Phone HIM CCA OTHER [facility] Primary Care Provider Assessment Encounter Date Assessment Date Assessment LastModified by Organization Details LastModified Time 08/21/2022 08/21/2022 As noted, we wer e called to see this patient regarding concerns of nausea. Evaluation in the field was performed by my regional administrative assistant colleague, as noted above, I provided real-time [...] Assessment and Plan as documented by the Rerolling Machine Operator. Patient given the opportunity to ask questions. Our service contacted for an assessment of: HTN As per above, patient with known HTN (poorly controlled) and ESRD on HD T, TH, Sat. Took her BPs meds and then took her meds. Noted to be high and RN called for a recheck. Per regional administrative assistant on the scene, patient took meds within 2 hours. Going for HD tomorrow. asymptomatic and denies CP, SOB, SEAMAN, HANCOCK, change in vision. Feels the same as usual. Impression: HTN and ESRD Plan: Continue to take scheduled meds. Attend HD in AM. Follow up with your Stone Processing Machine Operator in AM for medications adjustments. Discussed [...] in the field was performed by my regional administrative assistant colleague, as noted above, I provided real-time [...] assessment and plan as documented by the regional administrative assistant. I provided real-time medical direction for this encounter and was immediately available to provide additional phone-based assistance as needed. History as noted in EMR and by regional administrative assistant. I would add / emphasize: Patient seen [...] rapid strep group A, throat 2024 025 [facility], [facility], [address] [place] [address], [id number] 5 18:02:58 rapid SARS CoV 2 Ag, QL IA, respiratory specimen [address], [id number] 5 18:01:51 rapid flu (A+B) [address], [id number] 5 18:02:20 streptococc us group A, culture, throat 2024 025 [place] [facility] (Centralized Electronic Ordering - All Locations), Patient Can Go To The Location Of Their Choice, [id number] 5 20:06:06 Referral None recorded. Procedures None recorded. Surgeries None recorded. Imaging None recorded. Medication Orders senna 8.6 mg tablet 2024 025 [facility], [address] [place] [address], [id number], 14:38:58 docusate sodium 100 mg capsule 2024 025 [facility], [address] [place] [address], [id number], 5 17:41:02 diphenhydra mine 25 mg tablet 2021 022 [facility], [address] [place] [address], [id number], 17:13:24 ondansetron 4 mg disintegrat ing tablet 2021 022 [facility], [address] [place] [address], [id number], 17:13:24 Patient TargetsNo targets recorded. Patient InstructionsNo instructions recorded. Reason for Referral None Reported. Results Created Date Observation Date Name Description Value Unit Range Abnormal Flag Note LastModifiedBy Organization Detail LastModifiedTime 08/12/1908/14/2024 BETA STREP GP A CULTU RE beta strep gp A culture Negati ve Refer ence Range : Negat christiano Not Available [facility] ([facility]) [address] [facility], [place], [address], 08/14/2024 20:06:06 08/12/19 25 08/11/2024 rapid flu (A+B) Flu negati ve Not Available Main - [facility] ed [address] [place] [address], [id number] 08/11/2024 16:21:50 08/12/19 25 08/11/2024 rapid strep group A, throa t Strep negati ve Not Available Main - [facility] ed [address] [place] [address], [phone] 08/11/2024 16:21:47 08/12/19 25 08/11/2024 rapid SARS CoV 2 Ag, QL IA, respi rator y speci men rapid SARS CoV 2 Ag, QL IA, respiratory specimen negati ve Not Available Main - [facility] ed [address] [place] [address], [phone] 08/11/2024 16:21:49 Result Notes None recorded. Medical [...] Address Organization Details Last Updated DateTime 4 67631.8 g 18 /min 98.2 [degF] 82 /min 98 % 98 % 154.94 cm 194 mm[Hg] 100 mm[Hg] Not Available [facility] 4 18:13:07 Date Recorded Body height Oxygen saturation Oxygen saturation in Arterial blood by Pulse oximetry Respiratory rate Body temperature Heart rate Body weight Systolic blood pressure Diastolic blood pressure Provider Name and Address Organization Details Last Updated DateTime 5 152.4 cm 93 % 93 % 15 /min 98.8 [degF] 77 /min 00760.6 16 g 181 mm[Hg] 78 mm[Hg] Not Available [facility] 5 16:17:37 Date Recorded Body temperature Heart rate Respiratory rate Oxygen saturation Oxygen saturation in Arterial blood by Pulse oximetry Systolic blood pressure Diastolic blood pressure Provider Name and Address Organization Details Last Updated DateTime 5 98 [degF] 77 /min 14 /min 99 % 99 % 210 mm[Hg] 106 mm[Hg] Not Available [facility] 5 16:57:16 Date Recorded Respiratory rate Body [...] mm[Hg] 154 mm[Hg] 83 mm[Hg] Not Available [facility] 2 18:00:34 Date Recorded Body weight Heart [...] Address Organization Details Last Updated DateTime 3 37935.2 24 g 48 /min 18 /min 96 % 96 % 154.94 cm 97.9 [degF] 66121.2 24 g 48 /min 96 % 96 % 18 /min 97.9 [degF] 154.94 cm 113 mm[Hg] 69 mm[Hg] 113 mm[Hg] 69 mm[Hg] Not Available [facility] 3 17:35:34 Social History None recorded. Functional [...] 2925 Lázaro Tobar MD Main - [facility] [address] [place] [phone] 12/12/2021 18:56:07 02/09/2022 18:42:13 Cough 56865904 R05.1 Acute sherie l bronchitis 281149137 J20.8 4855 Duke Barkley MD Main - [facility] [address] [place] [phone] 03/15/2022 17:06:51 03/21/2022 15:11:00 Nausea 740259934 R11.0 Reports nausea after hemodialys is and [...] 9084 KHLOE BRADLEY MD Main - [facility] [address] [place] [phone] 08/21/2022 16:56:47 08/22/2022 22:48:09 Chronic low back pain 472094051 M54.50 back pain has been present for several days but similar to prior episodes according to pt. Nausea 633949239 R11.0 constellat [place] [address] Felisha Rothman MD Main - [facility] [address] [place] [phone] 09/10/2023 18:13:05 09/10/2023 21:09:31 Hypertensive disorder 74219004 I10 13376 Jaxon Romero MD Main - [facility] [address] [place] [phone] 08/11/2024 15:53:35 08/11/2024 20:19:42 Sore throat 864878581 J02.9 04463 Ariel Rangel MD Main - [facility] [address] [place] [phone] 09/07/2024 16:57:14 09/08/2024 14:48:15 External hemorrhoids 04091581 K64.4 Health Concerns Section Related Observation LastModified [...] (MEDICARE REPLACEMENT/ADV ANTAGE - HMO) Cruz Muller [id number] Ebenezer Muller 08/21/2022 1 [facility] - DOS PRIOR TO 2022 - DUAL ELIGIBLE (MEDICARE REPLACEMENT/ADV ANTAGE - HMO) Cruz Muller [id number] Cruz Sol Muller 09/10/2023 1 [facility] - DOS ON OR AFTER 2022 - DUAL ELIGIBLE - INTERMEDIATE OPTIONS AND ONE CARE (MEDICARE REPLACEMENT/ADV ANTAGE - HMO) Cruz Muller [id number] Cruz Muller 08/11/2024 1 [facility] - DOS ON OR AFTER 2022 - DUAL ELIGIBLE - INTERMEDIATE OPTIONS AND ONE CARE (MEDICARE REPLACEMENT/ADV ANTAGE - HMO) Cruz Muller [id number] Cruz Muller 09/07/2024 1 [facility] - DOS ON OR AFTER 2022 - DUAL ELIGIBLE - INTERMEDIATE OPTIONS AND ONE CARE (MEDICARE REPLACEMENT/ADV ANTAGE - HMO) Cruz Muller [id number] Cruz Muller Notes Date Note Type Note [...] need fluids. Member was dc home from [facility] on 03/13/22 where she was treated for CHF and Respiratory Failure on 03/10/22 , is on Dialysis 3 days a week. Pt is 66-year-old female with past medical history of CHF, ESRD on dialysis presents the [facility] with nausea vomiting as well as [...] ..................... ..................... ..................... ..................... ..................... ..................... ............... Rerolling Machine Operator Note: Community Paramedics Farrah chacko and Janette Stern dispatched to a [facility] for a 67 you c/o nausea and itchiness. Pt was recently discharged from [facility] after resp failure\CHF, and placed on dialysis. Pt also took suboxone 2X a day. She reported that she was unable to get a rx refill. proposal rep from pt's PCP called while onscene; requested rx refills for antiemetic, itch relief, more ventolin, and a reduction in stool softener due to loose stool for 5 days. RN spoke w/ pt, scheduled a follow up appt and stated she would contact the pt's PATROL LADY. She denied headache, dizziness, sore throat, fever, cough, CP, abd pain, urinary s/s; no redness, swelling, or hives seen or indicated. [facility] consulted; pt given 4 mg PO ondansetron and 25 mg PO diphenhydramine. Pt eating on scene before EMS departure. Red flags discussed. Need for social media developer conveyed to ..................... ..................... ..................... ..................... ..................... ..................... ............... Disposition: Fulfilled Duke Barkley MD [address] [facility],[address], [place], [address], [employer] 03/15/2022 20:09:41 08/21/2022 text/html HPI: 67 yo. Citizen Of [place] speaking female, who speaks some Greek, illiterate, reporting having lower back pain and nausea today, stated nausea medication helped little and that her Transportation did not show for Hemodialysis as schedule. Treated for MSSA Bacteremia at [facility] from 08/07-08/18/2022. Stated to feel unwell, [...] Member has 4 days a dialysis at [facility]. Member has appt with PCP 09/12 and is scheduled for dialysis Sunday. ..................... ..................... ..................... ..................... ..................... ..................... ............... CRC Nursing Assessment: Comments: No additional information needed ..................... ..................... ..................... ..................... ..................... ..................... ............... Rerolling Machine Operator Note From Jessika Cool: Sent to a call for a pt complaining of low back pain and nausea. SC8 arrives on scene, pt is alert and oriented, airway is patent. Pt's primary language is Citizen [place], excelsior machine feeder line used during assessment. Pt has chronic [...] noted; Extremities: no edema noted; Skin: unremarkable; [facility] consulted, [facility] Cj serves as excelsior machine feeder during consult. Pt is advised to go to dialysis tomorrow as planned. If symptoms do not improve after dialysis then pt is advised to go to ED for further evaluation/treatment. Red flags discussed. Pt has no further questions. ..................... ..................... ..................... ..................... ..................... ..................... ............... Disposition: Fulfilled KHLOE BRADLEY MD [address] [facility],[address], [place], [address], [place] [employer] 08/21/2022 19:00:33 09/10/2023 text/html HPI: managing partner requesting visit for member with HTN. BP today 184/97. Took BP medication 2 hours ago. Has not rechecked BP after medication. Asymptomatic. Denies CP, SOB, or Dizziness. ..................... ..................... ..................... ..................... ..................... ..................... ............... Rerolling Machine Operator Note From J Luis Gomez: [employer] visit for female patient with reported hypertension. Pt presents conscious and alert ambulating in home. Pt had nurse present with her who dispenses her meds. Pt reports she was on the phone with personal care attendant earlier in the day and disclosed that [...] her blood pressure is good. Consulted with [facility] Dr. Rothman who advised no acute treatments needed. Ensured patient had [facility]. Patient education provided. Reviewed red flags for ED. ..................... ..................... ..................... ..................... ..................... ..................... ............... Disposition: Fulfilled Felisha Rothman MD [address] [facility],[address], [place], [address], [employer] 09/10/2023 18:21:03 08/11/2024 text/html CRC Nurse Triage [...] s/s and seek emergency treatment if needed. Rerolling Machine Operator Organization Information for Tommy Samuel Business Legal Name: [employer] Address: [address] [place] [id number], Manager Image: Mayo Nguyen MD CLIA No.: [id number] Rerolling Machine Operator POC Test Results from Tommy Samuel Rapid strep test (16:17:43) Strep: - Rapid influenza antigen (17:33:24) Flu: - Rapid COVID antigen (17:33:25) COVID: - ..................... ..................... ..................... ..................... ..................... ..................... ............... Rerolling Machine Operator Note From Tommy Samuel: [facility] makes pt contact a 69 yo F CC of a sore throat. [facility] obtains consent and uploads electronically. [facility] obtains vital signs. PT explains for [...] complain of n/v. No allergies are noted. [facility] contacts [facility] and explains above mentioned. A strep test is obtained and results are negative, a sample is obtained for the lab which will be brought to lab [facility]. PT also tests negative for flu and covid. [facility] has no other recommendations at this time. PT advised to still use Tylenol as needed and take her zofran as needed for nausea. [facility] explains [facility], PT could be treated with appropriate anti biotics if needed. In meantime tea with honey if allowed with dialysis could be helpful for sore throats. Chest pain, severe sob, fever not controlled by tylenol would be reasons to be seen in person in an emergency room, otherwise await pending lab results. PT understands. [facility] clear. [facility] Lab Orders: rapid strep group A, throat: Performed Comment: negative rapid SARS CoV 2 Ag, QL IA, respiratory specimen: Performed Comment: negative rapid flu (A+B): Performed Comment: negative streptococcus group A, culture, throat: Performed Comment: To be sent to lab [facility] ..................... ..................... ..................... ..................... ..................... ..................... ............... [facility] Consulted: Jaxon Romero ..................... ..................... ..................... ..................... ..................... ..................... ............... Disposition: Fulfilled Jaxon Romero MD [address] [place] [address],[address], [place], [address], [employer] 08/11/2024 18:00:49 09/07/2024 text/html CRC Nurse Triage [...] ..................... ..................... ..................... ..................... ..................... ..................... ............... Rerolling Machine Operator Note From Neptali Hernandez: This visit is [...] ..................... ..................... ..................... ..................... ..................... ..................... ............... [facility] Consulted: Ariel Rangel ..................... ..................... ..................... ..................... ..................... ..................... ............... Disposition: Fulfilled Ariel Rangel MD [address] [place] [address],[address], [place], [address], [employer] 09/07/2024 19:52:57 OBGyn Episode No OBEpisode recorded.
--- OUTSIDE RECORDS SUMMARY | 2024-09-12 16:33 | XMS_ITS | Encounter Summary ---
Author Organization [facility] Address [address] [facility] 7t [place] [address] Care Team Providers Care Glass Blowing Instructor Name Role Phone Sammy Reilly MD Primary Care Provide r Reason for Visit * Reason Comments Med Refill Encounter Details Date Type Department Care Team ([facility] Contact Info) Description 06/20/2022 Refill [facility] [address] [place] [address] Sammy Reilly MD [address] [place] [address] Primary hypertension (Primary Dx); Uncomplicated opioid dependence [...] Upcoming Encounters Date Type Department Care Team ([facility] Contact Info) Description 09/26/2024 1:00 PM EDT Office Visit [facility] [address] [place] [address] [phone] Messi Mccollum MD [address] [place] [address] 10/14/2024 2:15 PM EDT Telemedicine [facility] [address] [place], [place] [phone] Sammy Reilly MD [address] [place], [place] [phone] documented as of this encounter Visit Diagnoses Diagnosis Primary hypertension- Primary Unspecified essential hypertension Uncomplicated opioid dependence (CMS/HCC) documented in this encounter Care Teams Glass Blowing Instructor Relationship Specialty Start Date End Date Sammy Reilly MD [address] [place] [address] [phone] PCP - General Internal Medicine 12/23/13 [employer] 04/08/22 Tj Larose MD Commercial Floor Covering Installer Nephrology 04/10/24 documented as of this encounter
--- OUTSIDE RECORDS SUMMARY | 2024-09-12 16:33 | XMS_ITS | Encounter Summary ---
Author Organization [employer] Address [address] [place] [address] Care Team Providers Care High School Academic Coach Name Role Phone Sammy Reilly MD Primary Care Provide r Reason for Visit * Reason Comments Med Refill Encounter Details Date Type Department Care Team (Late st Contact Info) Description 11/21/2023 Refill [facility] [address] [place], [place] [phone] Sammy Reilly MD [address] [place] [address] Chronic obstructive pulmonary disease, unspecified COPD type [...] your housing situation today? I have johnnie praedes 10/18/[address] you li [...] Description 09/26/2024 1:00 PM EDT Office Visit [facility] [address] [place] [phone] Messi Mccollum MD [address] [place] [phone] 10/14/2024 2:15 PM EDT Telemedicine [facility] [address] [place] [phone] Sammy Reilly MD [address] [place] [phone] documented as of this encounter Goals Goal [...] documented as of this encounter Care Teams High School Academic Coach Relationship Specialty Start Date End Date Sammy Reilly MD [address] [place] [phone] PCP - General Internal Medicine 12/23/13 [employer] 04/08/22 Tj Larose MD Laboratory [facility]ph[facility] 04/10/24 documented as of this encounter
--- OUTSIDE RECORDS SUMMARY | 2024-09-12 16:33 | XMS_ITS | Encounter Summary ---
Author Organization [facility] Address [address] [place] [phone] Phone Care Team Providers Care Rough And Truing Machine Operator Name Role Phone Unavailable Primary Care Provider Unavailabl e Encounter Details Date Type Department Care Team ([facility] st Contact Info) Description 09/06/2024 Treatment [facility]. [address] [phone] Tj Larose MD [address] [phone] End stage renal disease; Dependence [...] care for end stage renal disease. Attending Towel Hemmer: TJ LAROSE MD Dialysis Location: [facility] Schedule: Shift: 2 OVERVIEW Patient is stable. COMMENTS: Note in dialysis manager of operations ADEQUACY ASSESSMENT Kt/V, Natural Log 1.57 (08/21/24) [...]
--- OUTSIDE RECORDS SUMMARY | 2024-09-12 16:33 | XMS_ITS | Encounter Summary ---
Author Organization [employer] [facility] Address [address] [facility] 7[address] [place] [address] Care Team Providers Care Boiler Plant Worker Name Role Phone Sammy Reilly MD Primary Care Provide r Reason for Visit * Reason Comments Med Refill Encounter Details Date Type Department Care Team (Late Contact Info) Description 02/12/2023 Refill [facility] [address] [place] [address] Margarita Rob ANP [address] [place] [address] Social History Tobacco Use Types Packs/Day Years [...] 1:00 PM EDT Office Visit [facility] [address] [place] [phone] Messi Mccollum MD [address] [place] [address] 10/14/2024 2:15 PM EDT Telemedicine [facility] [address] [place], [place] [phone] Sammy Reilly MD [address] [place], [place] [phone] documented as of this encounter Goals Goal [...] documented as of this encounter Care Teams Boiler Plant Worker Relationship Specialty Start Date End Date Sammy Reilly MD [address] [place] [phone] PCP - General Internal Medicine 12/23/13 [employer] 04/08/22 Tj Larose MD Water Restoration Technician Nephrology 04/10/24 documented as of this encounter
--- OUTSIDE RECORDS SUMMARY | 2024-09-12 16:33 | XMS_ITS | Clinical Summary ---
Author Organization [employer] Address [address] [facility] [address] [place] [address] Care Team Providers Care Industrial Conveyor Belt Repairer Name Role Phone Sammy Reilly MD Primary Care Provide r Allergies No known active allergies Medications * This document contains information received from the source organization and may not represent a complete record from that organization. sennosides (Senokot) 8.6 MG tablet TAKE 2 TABLETS BY MOUTH AT BEDTIME 022 Active Spacer/Aero-Hol ding Chambers (Compact Space Chamber) deviceIndicatio ns:Singaporean Space chamber use with albuterol pump Active [...] A WEEK 1 each 024 Active B Paerets-K-Rlffn Acid (Elle-Sharifa Rx) 1 MG tablet TAKE [...] dialysis, with long-term current use of insulin ([facility]) Use to check blood sugar 3 times [...] 1 tablet by mouth 2 times daily. 03/17/2 025 Active losartan (Cozaar) 100 MG tablet Take 1 tablet by mouth Once per day. Active traZODone (Desyrel) 100 MG tablet Take 1 tablet by mouth at bedtime. Active Lokelma 10 g packet Take 10 g by mouth. Dissolved 1 packet as directed and take once daily on Sunday, Sunday and Sunday Active cloNIDine (Catapres-TTS) 0.3 MG/24HRIndicati ons:Primary hypertension Place 1 patch on the skin 1 (one) time per week. Remove old patch prior to applying a new one 4 patch 2 Active clotrimazole (Gyne-Lotrimin) 1 % vaginal creamIndication s:Vaginal itching Insert 1 applicator into the vagina in the evening for 7 days. 45 g 025 2024 Active fluconazole (Diflucan) 150 MG tabletIndicatio ns:Vaginal itching Take 1 tablet (150 mg) by mouth Once per day for 1 day. 1 tablet 025 2024 Active hydrALAZINE (Apresoline) 50 MG tabletIndicatio ns:Uncontrolled hypertension Take 1 tablet (50 mg) by mouth 3 times daily. 90 tablet 2 025 2025 Active bumetanide (Bumex) 2 MG tablet TAKE [...] cleanup (will not trigger notification to Pharmacy)) carvedilol (Coreg) 6.25 MG tabletIndicatio ns:Hypertension secondary to other renal disorders TAKE 1 TABLET BY MOUTH TWICE DAILY IN THE MORNING AND IN THE EVENING WITH MEALS 60 tablet 2 024 2024 Discontinued(M ed list cleanup (will not trigger notification to Pharmacy)) mupirocin [...] start before August 08, 2024. 28 Film 2024 Discontinued(R eorder (will not trigger notification [...] Active Problems Problem Noted Date Diagnosed Date Uncontrolled hypertension 09/12/2024 Assessment & Plan (09/12/2024 4:18 PM EDT): Blood pressure was very high today I [...] a day I referred patient to pharmacy CD ED precautions were reviewed with patient I let her know if she starts having chest pain, shortness of breath, dizziness, weakness or numbness to go immediately to emergency room or call the ambulance Vaginal itching 09/12/2024 Assessment & Plan (09/12/2024 4:15 PM EDT): I will prescribe clotrimazole cream empirically and also fluconazole pill for the vaginal itchiness BV test done patient will be contacted with results Right foot pain 09/12/2024 Assessment & Plan (09/12/2024 4:17 PM EDT): I refer patient to podiatry Uncomplicated opioid dependence 09/04/2024 Hepatitis C virus infection, unspecified chronic ity 12/03/2023 Hyperkalemia 10/18/2023 Assessment & Plan (10/18/2023 9:17 AM EDT): Pt recently admitted to [facility] for hyperkalemia. Pt's K improved after Lokelma and HD. Her Losartan was discontinued as well Plan: Repeat [facility] Hospital discharge follow-up 10/18/2023 Assessment & Plan (07/15/2024 3:41 PM EST): Pt recently admitted to [facility] from 05/29 until 06/04 after sresented to ER with altered MS and SOB. Found to have hyperkalemia 6.6, HTN, pulmonary edema needing BiPAP support. Undergone emergent dialysis. Also found to have acute pancreatitis with elevated lipase (trended down during hospital stay). Had GI, Nephrology, and Psychiatry consultations while inpatient. Assessment & Plan (10/18/2023 9:17 AM EDT): Pt recently admitted to [facility] 10/16/2023 for hyperkalemia. Pt's K improved after Lokelma and HD. Her Losartan was discontinued as well Plan: Repeat BMP Rectal prolapse 10/18/2023 Assessment & Plan (09/12/2024 4:17 PM EDT): I took today to Heidy her VNA she tells me she does have an upcoming appointment with surgery she does not know exactly the date tells me [facility] knows, I tried to contact also [facility] but I was unsuccessful I advised patient to be sure she has that appointment and do not miss it Assessment & Plan (07/15/2024 4:01 PM EST): [...] [facility] for [facility] Assessment & Plan (03/11/2024 9:23 AM EDT): Pt here for a follow up after she was seen again at [facility] ER with c/o rectal prolapse. Pt is [...] basis. Patient requested a second opinion at [facility] Surgeons to discuss her options. This referral [...] Mammogram: 01/25/2019 , referred missed appointment previously, [facility] tells me she will make the appointment [...] 4:07 PM EST): Pt previously admitted to [facility] from 03/10/22-03/13/22 for further management with a diagnosis of Acute hypoxemic respiratory failure possibly due to fluid overload/ESRD. Patient received HD and improved. Pt was subsequently readmitted to [facility] from 03/26/22 - 03/27/22 for CHF, hypoxia and ESRD Patient admitted at [facility] from 03/27/22 - 04/07/22. ProBNP elevated >70,000 on 03/27. volume status improved after dyalisis on 03/27. ECHO showed EF 45% . Cardiology consult recommended outpt ischemic work up. [facility] Cardiology called pt on 11/14/23 to schedule new patient appt, they LVM and sent letter out to book. LB She never went to see lithographic plate maker apprentice will refer back Assessment & Plan (10/18/2023 9:34 AM EDT): Pt previously admitted to [facility] from 03/10/22-03/13/22 for further management with a diagnosis of Acute hypoxemic respiratory failure possibly due to fluid overload/ESRD. Patient received HD and improved. Pt was subsequently readmitted to [facility] from 03/26/22 - 03/27/22 for CHF, hypoxia and ESRD Patient admitted at [facility] from 03/27/22 - 04/07/22. ProBNP elevated >70,000 on 03/27. volume status improved after dyalisis on 03/27. ECHO showed EF 45% . Cardiology consult recommended outpt ischemic work up. She never went to see lithographic plate maker apprentice will refer back Assessment & Plan (12/28/2022 10:03 AM EDT): Pt previously admitted to [facility] from 03/10/22-03/13/22 for further management with a diagnosis of Acute hypoxemic respiratory failure possibly due to fluid overload/ESRD. Patient received HD and improved. Pt was subsequently readmitted to [facility] from 03/26/22 - 03/27/22 for CHF, hypoxia and ESRD Patient admitted at [facility] from 03/27/22 - 04/07/22. ProBNP elevated >70,000 on 03/27. volume status improved after dyalisis on 03/27. ECHO showed EF 45% . Cardiology consult recommended outpt ischemic work up. Pt Tells me she finally went to see the Materials Scientist . 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 Pt has been evaluated for this at [facility] Vascular surgery. last note on record from [...] Pt has been evaluated for this at [facility] Vascular surgery. last note on record from 01/08/2012 mentioned that this does not offer any major risk and recommended prn f/u Assessment & Plan (12/28/2022 9:50 AM EDT): Pt has a Hx of a 9 mm right renal artery aneurysm seen on most recent CTA on 06/08/2011 but No stenosis. This was done in the ER. Pt has been evaluated for this at [facility] Vascular surgery. last note on record from [...] for a follow up, seen at our [facility] after pt reported 7 days w/o [...] visit today but promised to go to [facility] hospital tomorrow AM. Will request status check next business day (10/02/22) ?? Radha refilled per request, however reviewed med safety and SE Follow up as needed, patient in agreement with plan End-stage renal disease on hemodialysis 04/17/20 22 Assessment & Plan (07/15/2024 4:15 PM [...] Noted Date Diagnosed Date Resolved Date COVID-19 05/09/202206/2706/27/2022 Encounters Date Type Department Care Team Description 09/12/2024 1:00 PM EDT Office Visit [facility] [address] [place] [address] Heidy Kunz MD Uncontrolled hypertension (Primary Dx); Vaginal itching; Rectal prolapse; Right foot pain 09/12/2024 Telephone [facility] [address] [place] [address] Kinza Escamilla, RN Care Coordination 09/12/[address] [address] Sammy Reilly MD 09/04/[address] [address] Demi Esquivel RN 09/03/2024 2:30 PM EDT Office Visit [address] [address] Margarita Rob ANP Hospital discharge follow-up (Primary Dx); Primary hypertension; Type 2 diabetes mellitus with chronic kidney disease on chronic dialysis, with long-term current use of insulin ([facility]); Hyperkalemia; Rectal prolapse; End-stage renal disease on hemodialysis ([facility]); Smoker; Uncomplicated opioid dependence ([facility]) 09/03/[address] [address] Sammy Reilly MD Durable Medical Equipment 09/03/[address] [address] Sammy Reilly MD Call Back Request 09/03/2024 Travel 09/01/[address] [address] Saige De La Cruz, OdessaD Durable Medical Equipment 09/01/2024 Telephone [facility] [address] [place] [address] Lila Fox MA chart prep 08/29/2024 9:45 AM EDT Office Visit [address] [address] Messi Mccollum MD Uncomplicated opioid dependence (CMS/HCC) (Primary Dx) 08/29/2024 Telephone [facility] [address], [place] [address] Jessica Rahman, RN 08/29/2024 Refill [facility] [address], [place] [address] Sammy Reilly MD Chronic obstructive pulmonary disease, unspecified COPD type (CMS/HCC) 08/29/2024 Telephone [facility] [address], [place] [address] Sammy Reilly MD 08/29/2024 Travel 08/15/2024 Telephone [facility] [address], [place] [address] Sammy Reilly MD FYI 08/13/2024 Telephone [facility] [address], [place] [address] Sammy Reilly MD DME from [facility] 08/12/2024 Telephone [facility] [address], [place] [address] Sammy Reilly MD DME from [facility] 08/11/2024 Refill [facility] [address], [place] [address] Sammy Reilly MD 08/08/2024 Telephone [facility] [address], [place] [address] Sammy Reilly MD Call Back Request 08/05/2024 Refill [facility] [address], [place] [address] Sammy Reilly MD Chronic obstructive pulmonary disease, unspecified COPD type (CMS/HCC) 08/04/2024 Refill [facility] [address], [place] [address] Jessica Rahman, RN Uncomplicated opioid dependence (CMS/HCC) 07/31/2024 Refill [facility] [address], [place] [address] Geena Umana CNM 07/31/2024 Refill [facility] [address] [facility] [address] Sebastián Lora MD Chronic obstructive pulmonary disease, unspecified COPD type ([facility]/HCC) 07/28/2024 Orders Only [facility] [address] [place] [address] Willow Betancourt MD 07/25/2024 Telephone [facility] [address] [facility] [place] [address] Sammy Reilly MD 07/22/2024 Refill [facility] [address] [facility] [place] [address] Sammy Reilly MD Chronic midline low back pain without sciatica 07/18/2024 Refill [facility] [address] [facility] [place] [address] Sammy Reilly MD 07/15/2024 3:00 PM EST Telemedicine [facility] [address] [facility] [place] [address] Sammy Reilly MD Rectal prolapse (Primary Dx); Hospital discharge follow-up; Renal artery aneurysm ([facility]); Chronic diastolic congestive heart failure ([facility]/HCC); Constipation, unspecified constipation type; Renal cyst, left; End-stage renal disease on hemodialysis ([facility]); Type 2 diabetes mellitus with chronic kidney disease on chronic dialysis, with long-term current use of insulin ([facility]); Chronic pain of both knees 07/15/2024 Travel 07/14/2024 Telephone [facility] [facility] [place] [address] Sammy Reilly MD DME [facility] 07/11/2024 1:00 PM EST Telemedicine [facility] [address] [facility] [place] [address] Messi Mccollum MD Uncomplicated opioid dependence ([facility]/HCC) 07/11/2024 Telephone [facility] [address] [facility] [address] Sammy Reilly MD Chart Prep Tele 07/11/2024 Travel 07/10/2024 Telephone [facility] [place] [address] Sammy Reilly MD Appointment Confirmation 07/10/2024 Telephone [facility] [address] [place] [address] Sammy Reilly MD Appointment Request 07/09/2024 Telephone [facility] [address] [place] [address] Sammy Reilly MD 07/08/2024 Telephone [facility] [address], [place] [address] Sammy Reilly MD Appointment Request 07/08/2024 Refill [facility] [address] [place] [address] Jessica Rahman, CELIO Uncomplicated opioid dependence ([facility]) 06/27/2024 Refill [facility] [address] [place] [address] Sammy Reilly MD Tobacco use disorder 06/26/2024 Telephone [facility] [address] [place] [address] Sammy Reilly MD 06/23/2024 Refill [facility] [address] [place] [address] Humberto Joseph RN Uncomplicated opioid dependence ([facility]/HCC) 06/20/2024 10:00 AM EST Office Visit [facility] [address] [place] [address] Messi Mccollum MD Uncomplicated opioid dependence ([facility]) (Primary Dx) 06/20/2024 Travel 06/18/2024 Refill [facility] [address] [place] [address] Hattie Gonzales MD Hypertension secondary to other renal disorders 06/17/2024 Telephone [facility] [address], [place] [address] Jessica Rahman, CELIO 06/16/2024 Refill [facility] [address] [place] [address] Lashawn Bang, RN Type 2 diabetes mellitus with chronic kidney disease on chronic dialysis, with long-term current use of insulin ([facility]) 06/16/2024 Refill [facility] [address] [place] [address] Messi Mccollum MD Uncomplicated opioid dependence ([facility]) 06/16/2024 Telephone [facility] [address] [place] [address] Demi Esquivel RN 06/16/2024 Refill [facility] [address] [place] [address] Demi Esquivel RN Uncomplicated opioid dependence ([facility]) 06/16/2024 Telephone [facility] [address] [place] [address] Demi Esquivel RN from Last 3 Months Immunizations Name Administration [...] EDT Inhaled Oxygen Concentration - - Weight 64 kg (141 lb) 09/03/2024 2:42 PM EDT Height 149.9 cm (4' 11 ) 09/03/2024 2:42 PM EDT Body Mass Index 28.48 09/03/2024 2:42 PM EDT Plan of Treatment Upcoming Encounters Date Type Department Care Team (Late st Contact Info) Description 09/26/2024 1:00 PM EDT Office Visit [facility] [address] [place], [place] [phone] Messi Mccollum MD [address] [place], [place] [phone] 10/14/2024 2:15 PM EDT Telemedicine [facility] [address] [place], [place] [phone] Sammy Reilly MD [address] [place], [place] [phone] Health Maintenance Due Date Last Done Comments [...] 05/17/2021, Additional history exists Mammogram 11/06/2024 11/07/2023, 11/11/2018, 01/30/2018 DTaP/Tdap/Td Vaccines (2 - Td or Tdap) 01/07/2025 01/07/2015 Diabetes: Hemoglobin A1C 03/05/2025 025, 08/21/2024, 03/11/2024, Additional history exists Alcohol/Substance Use Screening 03/11/2025 [...] dialysis, with long-term current use of insulin ([facility]) POCT GLUCOSE Routine 09/03/2024 2:47 PM EDT Type 2 diabetes mellitus with chronic kidney disease on chronic dialysis, with long-term current use of insulin ([facility]) THINPREP IMAGING PAP AND HPV MRNA E6/E7 [...] Unknown 09/03/2024 2:47 PM EDT us Margarita Rob ANP POINT OF CARE TEST ENTER/EDIT OR DERABLES Final Result * ThinPrep Imaging Pap and HPV mRNA E6/E7 (12/05/2023 9:53 AM EDT) HPV nRNA E6/E7 Not Detected Not Detected [facility] Comment:Methodology: Transcr iption-Mediated AmplificationThis assay detects E6/E7 viral messenger RNA (mRNA) from 14high-risk HPV types (16,18,31,33,35,39,45,51,52,56,58,59,66,68).Cervical sources are required for HPV testing.If a vaginal source from a patient who has had atotal hysterectomy with removal of cervix wassubmitted, please contact the testing laboratoryfor alternative testing options.For additional information, please refer tohttp://education.PubCoder/faq/PAT061h3(This link if provided for information/educational purposes only.)THIS TEST WAS PERFORMED AT:[employer] [address] [id number] JUNE MD SOURCE: SEE NOTE [facility] Comment:None given Report Status: [facility] Clinical Information: SEE NOTE [facility] Comment:None given LMP: SEE NOTE [facility] Comment:NONE GIVEN Prev. PAP: SEE NOTE [facility] Comment:NONE GIVEN Prev. BX: SEE NOTE [facility] Comment:NONE GIVEN Statement Of Adequacy: SEE NOTE [facility] Comment:Satisfactory for amandeep luation.Endocervical/transformation zone component absent. General Categorization: [facility] Interpretation/Result: SEE NOTE [facility] Comment:Cytology Results: Ne gative for intraepitheliallesion or malignancy. Cytology Comment SEE NOTE [facility] Comment:This Pap test has be en evaluated with computerassisted technology. Tobacco Drummer: SEE NOTE [facility] Comment:DMM, CT(ASCP)CT scre ening location: [address] [address] Review Tobacco Drummer: [facility] Pathologist [facility] PAP Infection [facility] See Note SEE NOTE [facility] Comment:EXPLANATORY NOTE:The Pap is a screening test for cervical cancer. It isnot a diagnostic test and is subject to false negativeand false positive results. It is most reliable when asatisfactory sample, regularly obtained, is submittedwith relevant clinical findings and history, and whenthe Pap result is evaluated along with historic andcurrent clinical information. 12/05/2023 9:53 AM EDT 12/05/2023 4:42 PM EDT Narrative [facility] - 12/12/2023 5:23 PM EDT SEE SCANNED RESULTS IN EMR us Geena Umana CNM LAB PATHOLOGY ORDERABLES Final Result [facility] [address] [place] [address] [phone] * BI Mammogram Screening Tomosynthesis Bilateral (11/07/2023 2:55 PM EDT) Anatomical Region Laterality Modality Breast Bilateral Mammography 11/07/2023 2:55 PM EDT Narrative 12/05/2023 11:54 AM EDT ? [facility] ? [address] ?[place] [address] ? Mammography Report ? Signed ? Patient: Muller, M ?MR#: [id number] ? : 1955 ?Acct:[id number] ? Age/Sex: 68 / F ?ADM Date: 11/07/23 ? Loc: HO.MAMMO ? Attending Dr: Sammy Vicente MD ? Ordering Physician: Sammy Vicente MD ?Resu ?? lts: 1Negative ? Date of Service: 11/07/23 ?Follow Up: 1 Year From Orig ?? inal Mammogram ? Procedure(s): MM tomosynthesis screening BI ?? Accession Number(s): [id number] ? cc: Sammy Vicente MD ? EXAMINATION: ?? MM SCREENING DIGITAL BREAST TOMOSYNTHESIS, BILATERAL ? CLINICAL INFORMATION: ? Screening. Asymptomatic. ? COMPARISON: ?? Mammography: This study is compared with prior exams dating back to ?? 2018. ? TECHNIQUE: ?? Digital breast tomosynthesis is [...] in OV> ? 12/05/23 1150 ? DD/ 145 ? TD/TT: ? Long Term: ? Procedure Note Shirley, Daniella - 12/05/2023 [facility] [address] [place] [address] Dr. Moreira, [place] [address] Mammography Report Signed Patient: Cruz Muller MMR#: [id number] : 6Acct:[id number] Age/Sex: 68 / FADM Date: 11/07/23 Loc: HO.MAMMO Attending Dr: Sammy Vicente MD Ordering Physician: Sammy Vicente MDResu lts: 1Negative Date of Service: 11/07/23Follow Up: 1 Year From Orig inal Mammogram Procedure(s): MM tomosynthesis screening BI Accession Number(s): [id number] cc: Sammy Vicente MD EXAMINATION: MM SCREENING [...] in OV> 12/05/23 1150 DD/ 1455 TD/TT: Long Term: us Sammy Whitehead MD IMG BI PROCEDURES Fin al Result * Hm Colonoscopy (05/25/2022 1:47 PM EST) us Historical Provider HEALTH MAINTENANCE Final Result * [...] ?? Chaitanya TAVAREZ et al. CARLOS. 2013;310(19): 8910-9027 ?? (http://education.GCW/faq/IMI849) Non-HDL Cholesterol 175(H) <130 mg/dL (calc) [facility] [...] Whitehead MD LAB BLOOD ORDERABLES Final Result [facility] [address] from Last 3 Months or Most Recently Relevant to Health Maintenance Insurance [facility] OPTIONS (O D-SNP) [place] [phone] [place] [phone] [address] [place] [phone] Care Teams Industrial Conveyor Belt Repairer Relationship Specialty Start Date End Date Sammy Reilly MD [address] [place] [address] PCP - General Internal Medicine 12/23/13 [facility] 04/08/22 Tj Larose MD Delivery Rep Nephrology 04/10/24
--- OUTSIDE RECORDS SUMMARY | 2024-09-12 16:33 | XMS_ITS | Encounter Summary ---
Author Organization [employer] Address [address] [facility] [address] [facility] 7t [place] [address] Care Team Providers Care Dry Press Operator Helper Name Role Phone Sammy Reilly MD Primary Care Provide r Reason for Visit * Reason Comments Med Refill Encounter Details Date Type Department Care Team ([facility] st Contact Info) Description 04/25/2023 Refill [facility] MED[facility]INE [address] [place] [address] Name, MD Tye [address] [place] [address] Hypertension secondary to other renal disorders; Primary [...] Description 09/26/2024 1:00 PM EDT Office Visit [facility] MED[facility] [address] [place] [address] [phone] Messi Mccollum MD [address] [place] [address] [phone] 10/14/2024 2:15 PM EDT Telemedicine [facility] [address] [place] [address] 65038 Sammy Reilly MD [address] [place] [address] 06[address] documented as of this encounter Goals Goal [...] documented as of this encounter Care Teams Dry Press Operator Helper Relationship Specialty Start Date End Date Sammy Reilly MD [address] [place] [address] [phone] PCP - General Internal Medicine 12/23/13 [employer] 04/08/22 Tj Larsoe MD Inspector Mechanical Nephrology 04/10/24 documented as of this encounter
--- OUTSIDE RECORDS SUMMARY | 2024-09-12 16:33 | XMS_ITS | Encounter Summary ---
Author Organization [employer] Address [address] [facility] [address] 7t [place] [address] Care Team Providers Care Business Process Specialist Name Role Phone Sammy Reilly MD Primary Care Provide r Reason for Visit * Reason Onset Date Comments Paperwork/Forms 10/22/2023 Encounter Details Date Type Department Care Team ([facility] st Contact Info) Description 10/22/2023 Telephone [facility] MEDICINE [address] [place] [address] Sammy Reilly MD 230 [place] [address] Paperwork/Forms Social History Tobacco Use Types Packs/Day [...] 1:00 PM EDT Office Visit [facility] MEDICINE [address] [place] [address] [phone] Messi Mccollum MD [address] [place] [address] 57[address] 10/14/2024 2:15 PM EDT Telemedicine [facility] MEDICINE [address] [place] [address] [phone] Sammy Reilly MD [address] [place] [address] [phone] documented as of this encounter Goals Goal Patient Goal Type Associated Problems Recent Progress Patient-Stated? Author Check and record your blood sugars as directed Blood Pressure No Fatuma, Jimbo, PharmD Short-term: Promote adherence to treatment regimen General No Jimbo Burris PharmD Take your medication every day Lifestyle No Jimbo Burris PharmD documented as of this encounter Visit Diagnoses Not on filedocumented in this encounter Additional Health Concerns Assessment Noted Time PHQ-9 Depression Total Score: 11 024 9:25 AM EDT documented as of this encounter Care Teams Business Process Specialist Relationship Specialty Start Date End Date Sammy Reilly MD [address] [place] [address] 38843 PCP - General Internal Medicine 12/23/13 [employer] 04/08/22 Tj Larose MD Medical Coding Manager Nephrology 04/10/24 documented as of this encounter
--- OUTSIDE RECORDS SUMMARY | 2024-09-12 16:33 | XMS_ITS | Encounter Summary ---
Author Organization [facility] Address 75 [facility] 7t [place] [address] Care Team Providers Care Shipfitters Supervisor Name Role Phone Sammy Reilly MD Primary Care Provide r Reason for Visit * Reason Comments Med Refill Encounter Details Date Type Department Care Team ([facility] Contact Info) Description 02/09/2023 Refill [facility] MEDICINE [address] [place] [address] [phone] Lois Garrett MD 230 [place] [address] Primary insomnia Social History Tobacco Use Types [...] Upcoming Encounters Date Type Department Care Team ([facility] Contact Info) Description 09/26/2024 1:00 PM EDT Office Visit [facility] MEDICINE [address] [place] [address] [phone] Messi Mccollum MD [address] [place] [address] 10/14/2024 2:15 PM EDT Telemedicine [facility] MEDICINE [address] [place], [place] [phone] Sammy Reilly MD [address] [place], [place] [phone] documented as of this encounter Goals Goal [...] documented as of this encounter Care Teams Shipfitters Supervisor Relationship Specialty Start Date End Date Sammy Reilly MD 230 [place], [place] [phone] PCP - General Internal Medicine 12/23/13 [employer] 04/08/22 Tj Larose MD Gas Meter Checker Nephrology 04/10/24 documented as of this encounter
--- OUTSIDE RECORDS SUMMARY | 2024-09-12 16:33 | XMS_ITS | Encounter Summary ---
Author Organization [facility] Address 75 [facility] 7t [place] [address] Care Team Providers Care Medical Radiation Tech Name Role Phone Sammy Reilly MD Primary Care Provide r Reason for Visit * Reason Comments Med Refill Encounter Details Date Type Department Care Team (Late Contact Info) Description 02/12/2023 Refill [facility] 230 [place] [address] Lois Garrett MD [address] [place] [address] Hypertension secondary to other renal disorders Social [...] Description 09/26/2024 1:00 PM EDT Office Visit [facility] [address] [place] [address] Messi Mccollum MD 230 [place] [address] 10/14/2024 2:15 PM EDT Telemedicine [facility] [address] [place] [address] Samym Reilly MD 230 [place], [place] [phone] documented as of this encounter Goals Goal [...] as of this encounter Care Teams Medical Radiation Tech Relationship Specialty Start Date End Date Sammy Reilly MD [address] [place] [address] [phone] PCP - General Internal Medicine 12/23/13 [employer] 04/08/22 Tj Larose MD Stadium Attendant Nephrology 04/10/24 documented as of this encounter
--- OUTSIDE RECORDS SUMMARY | 2024-09-12 16:33 | XMS_ITS | Encounter Summary ---
Author Organization [facility] Address 75 [facility] 7t [place] [address] Care Team Providers Care Indian Nanny Name Role Phone Sammy Reilly MD Primary Care Provide r Encounter Details Date Type Department Care Team (Late st Contact Info) Description 05/08/2022 Orders Only [facility] [address] [place] [address] [phone] Swetha Ribera LPN Social History Tobacco Use [...] Description 09/26/2024 1:00 PM EDT Office Visit [facility] [address] [place] [address] [phone] Messi Mccollum MD [address] [place] [address] [phone] 10/14/2024 2:15 PM EDT Telemedicine [facility] [address] [place] [address] [phone] Sammy Reilly MD [address] [place] [address] [phone] documented as of this encounter Visit Diagnoses Not on filedocumented in this encounter Care Teams Indian Nanny Relationship Specialty Start Date End Date Sammy Reilly MD 230 [place] [address] PCP - General Internal Medicine 12/23/13 [employer] 04/08/22 Tj Larose MD Cad Specialist Nephrology 04/10/24 documented as of this encounter
--- OUTSIDE RECORDS SUMMARY | 2024-09-12 16:33 | XMS_ITS | Encounter Summary ---
Author Organization [employer] Address [address] [facility] [address] 7t [place] [address] Care Team Providers Care Telecommunications Engineer Name Role Phone Sammy Reilly MD Primary Care Provide r Reason for Visit * Reason Comments Med Refill Encounter Details Date Type Department Care Team ([facility] st Contact Info) Description 05/09/2023 Refill [facility] MEDICINE 230 [place] [address] Sammy Reilly MD 230 [place] [address] Social History Tobacco Use Types Packs/Day Years [...] Description 09/26/2024 1:00 PM EDT Office Visit [facility] MEDICINE [address] [place] [address] [phone] Messi Mccollum MD [address] [place] [address] 10/14/2024 2:15 PM EDT Telemedicine [facility] MEDICINE [address] [place] [phone] Sammy Reilly MD [address] [place] [address] 17689 documented as of this encounter Goals Goal [...] documented as of this encounter Care Teams Telecommunications Engineer Relationship Specialty Start Date End Date Sammy Reilly MD [address] [place] [address] [phone] PCP - General Internal Medicine 12/23/13 [employer] 04/08/22 Tj Larose MD Dental Director Nephrology 04/10/24 documented as of this encounter
--- OUTSIDE RECORDS SUMMARY | 2024-09-12 16:33 | XMS_ITS | Encounter Summary ---
Author Organization [facility] Address [address] [place] [phone] Phone Care Team Providers Care Telecommunications Administrator Name Role Phone Unavailable Primary Care Provider Unavailabl e Encounter Details Date Type Department Care Team ([facility] st Contact Info) Description 09/09/2024 Treatment [facility]. [address] [phone] Tj Larose MD [address] [phone] End stage renal disease; Dependence [...] care for end stage renal disease. Attending Plant Operator Helper: TJ LAROSE MD Dialysis Location: [facility] Schedule: Shift: 2 OVERVIEW Patient is stable. COMMENTS: Note in dialysis budget manager ADEQUACY ASSESSMENT Kt/V, Natural Log 1.57 [...]
--- OUTSIDE RECORDS SUMMARY | 2024-09-12 16:33 | XMS_ITS | Encounter Summary ---
Author Organization [employer] Address [address] [facility] [address] 7t [place] [address] Care Team Providers Care Power Plant Operations Manager Name Role Phone Sammy Reilly MD Primary Care Provide r Reason for Visit * Reason Onset Date Comments Appointment Request 05/24/2023 Encounter Details Date Type Department Care Team ([facility] st Contact Info) Description 05/24/2023 Telephone [facility] MEDICINE 230 [place] [address] Sammy Reilly MD 230 [place] [address] Appointment Request Social History Tobacco Use Types [...] 05/24/2023 11:25 AM EST Tc from patients critical care nurse calling to request a follow appt with the patients PCP there is no concerns as of right now documented in this encounter Plan of Treatment Upcoming Encounters Date Type Department Care Team (Late st Contact Info) Description 09/26/2024 1:00 PM EDT Office Visit [facility] MEDICINE [address] [place] [phone] Messi Mccollum MD [address] [place] [address] 10/14/2024 2:15 PM EDT Telemedicine [facility] MEDICINE [address] [place] [address] Sammy Reilly MD [address] [place] [address] [phone] documented as of this encounter Goals Goal [...] Noted Time PHQ-9 Depression Total Score: 11 10/03/ 023 9:59 AM EDT documented as of this encounter Care Teams Power Plant Operations Manager Relationship Specialty Start Date End Date Sammy Reilly MD [address] [place] [phone] PCP - General Internal Medicine 12/23/13 [employer] 04/08/22 Tj Larose MD Manufacturing Production Manager Nephrology 04/10/24 documented as of this encounter
--- OUTSIDE RECORDS SUMMARY | 2024-09-12 16:33 | XMS_ITS | Encounter Summary ---
Author Organization [employer] Address 75 [facility] 7t [place] [address] Care Team Providers Care Lorry Weigher Name Role Phone Sammy Reilly MD Primary Care Provide r Reason for Visit * Reason Comments Med Refill Encounter Details Date Type Department Care Team (Late st Contact Info) Description 05/05/2022 Refill [facility] [address] [place] [address] Margarita Rob, ANP 230 [place] [address] Chronic obstructive pulmonary disease, unspecified COPD type [...] Description 09/26/2024 1:00 PM EDT Office Visit [facility] [address] [place] [phone] Messi Mccollum MD 230 [place], [place] [phone] 10/14/2024 2:15 PM EDT Telemedicine [facility] [address] [place] [address] [phone] Sammy Reilly MD 230 [place], [place] [phone] documented as of this encounter Visit Diagnoses Diagnosis Chronic obstructive pulmonary disease, unspecified COPD type (CMS/HCC)- Primary documented in this encounter Care Teams Lorry Weigher Relationship Specialty Start Date End Date Sammy Reilly MD [address] [place] [address] [phone] PCP - General Internal Medicine 12/23/13 [employer] 04/08/22 Tj Larose MD Licensed Occupational Therapy Assistant Nephrology 04/10/24 documented as of this encounter
--- OUTSIDE RECORDS SUMMARY | 2024-09-12 16:33 | XMS_ITS | Encounter Summary ---
Author Organization [employer] Address 75 [facility] 7t [place] [address] Care Team Providers Care Steam Bone Press Tender Name Role Phone Sammy Reilly MD Primary Care Provide r Encounter Details Date Type Department Care Team ([facility] st Contact Info) Description 04/07/2024 Orders Only [facility] 505 [place], [place] [phone] Sebastián Lora MD 505 [place] [address] Social History Tobacco Use Types Packs/Day Years [...] the past 12 months, has t he [employer], gas, oil or water company threatened to [...] EDT Office Visit [facility] MEDICINE [address] [place] [phone] Messi Mccollum MD [address] [place] [address] 8[address] 10/14/2024 2:15 PM EDT Telemedicine [facility] [address] [place] [address] [phone] Sammy Reilly MD [address] [place] [address] [phone] documented as of this encounter Goals Goal [...] documented as of this encounter Care Teams Steam Bone Press Tender Relationship Specialty Start Date End Date Sammy Reilly MD [address] [place] [address] [phone] PCP - General Internal Medicine 12/23/13 [employer] 04/08/22 Tj Larose MD Apparel Cutter Nephrology 04/10/24 documented as of this encounter
--- OUTSIDE RECORDS SUMMARY | 2024-09-12 16:33 | XMS_ITS | Encounter Summary ---
Author Organization [employer] [facility] Address 75 [facility] 7t [place] [address] Care Team Providers Care Embedded Systems Software Developer Name Role Phone Sammy Reilly MD Primary Care Provide r Reason for Visit * Reason Comments Med Refill Encounter Details Date Type Department Care Team ([facility] st Contact Info) Description 11/10/2022 Refill [facility] MEDICINE 230 [place] [address] Hattie Gonzales MD 230 [place] [address] Social History Tobacco Use Types Packs/Day Years [...] Description 09/26/2024 1:00 PM EDT Office Visit [facility] MEDICINE [address] [place] [address] [phone] Messi Mccollum MD 230 [place] [address] 10/14/2024 2:15 PM EDT Telemedicine [facility] MEDICINE 230 [place], [place] [phone] Sammy Reilly MD 230 [place], [place] [phone] documented as of this encounter Goals Goal [...] documented as of this encounter Care Teams Embedded Systems Software Developer Relationship Specialty Start Date End Date Sammy Reilly MD [address] [place] [address] [phone] PCP - General Internal Medicine 12/23/13 [employer] 04/08/22 Tj Larose MD Behavioral Services Tech Nephrology 04/10/24 documented as of this encounter
--- OUTSIDE RECORDS SUMMARY | 2024-09-12 16:33 | XMS_ITS | Encounter Summary ---
Author Organization [employer] Address [address] [facility] [address] 7t [place] [address] Care Team Providers Care Supervisor Cell Operation Name Role Phone Sammy Reilly MD Primary Care Provide r Reason for Visit * Reason Comments Med Refill Encounter Details Date Type Department Care Team ([facility] st Contact Info) Description 10/21/2023 Refill [facility] MEDICINE 230 [place] [address] Sammy Reilly MD 230 [place] [address] Chronic obstructive pulmonary disease, unspecified COPD type [...] Visit [facility] MEDICINE [address] [place] [address] 06797 Messi Mccollum MD [address] [place] [address] [phone] 10/14/2024 2:15 PM EDT Telemedicine [facility] MEDICINE [address] [place] [address] [phone] Sammy Reilly MD [address] [place] [address] 42560 documented as of this encounter Goals Goal [...] as of this encounter Care Teams Supervisor Cell Operation Relationship Specialty Start Date End Date Sammy Reilly MD 230 [place] [address] PCP - General Internal Medicine 12/23/13 [employer] 04/08/22 Tj Larose MD Campaign Advisor Nephrology 04/10/24 documented as of this encounter
--- OUTSIDE RECORDS SUMMARY | 2024-09-12 16:33 | XMS_ITS | Encounter Summary ---
Author Organization [employer] Address [address] [facility] [address] 7t [place] [address] Care Team Providers Care Safe Deposit Attendant Name Role Phone Sammy Reilly MD Primary Care Provide r Reason for Visit * Reason Comments Med Refill Encounter Details Date Type Department Care Team (Late st Contact Info) Description 10/23/2023 Refill [facility]S [address] [place], [place] [phone] Sammy Reilly MD 230 [place] [address] Constipation due to opioid therapy Social History [...] 1:00 PM EDT Office Visit [facility] MEDICINE [address] [place] [address] 45[address] Messi Mccollum MD [address] [place] [address] 10/14/2024 2:15 PM EDT Telemedicine [facility] MEDICINE [address] [place] [address] [phone] Sammy Reilly MD [address] [place] [address] [phone] documented as of this encounter Goals Goal [...] documented as of this encounter Care Teams Safe Deposit Attendant Relationship Specialty Start Date End Date Sammy Reilly MD 230 [place] [address] PCP - General Internal Medicine 12/23/13 [employer] 04/08/22 Tj Larose MD Health It Specialist Nephrology 04/10/24 documented as of this encounter
--- OUTSIDE RECORDS SUMMARY | 2024-09-12 16:33 | XMS_ITS | Encounter Summary ---
Author Organization [facility] Address [address] [place] [address] Phone Care Team Providers Care Clinical Research Physician Name Role Phone Unavailable Primary Care Provider Unavailabl e Encounter Details Date Type Department Care Team (Late st Contact Info) Description 11/10/2021 Office Communication [facility] [address] [place] [address] Sigrid Hollingsworth, CELIO Social History [...]
--- OUTSIDE RECORDS SUMMARY | 2024-09-12 16:33 | XMS_ITS | Encounter Summary ---
Author Organization [employer] Address [address] [facility] [address] 7t [place] [address] Care Team Providers Care Medical Appliance Maker Name Role Phone Sammy Reilly MD Primary Care Provide r Reason for Visit * Reason Comments Med Refill Encounter Details Date Type Department Care Team ([facility] st Contact Info) Description 04/20/2023 Refill [facility] MEDICINE 230 [place] [address] Name, MD Tye 230 [place] [address] Hypertension secondary to other renal disorders Social [...] Visit [facility] MEDICINE [address] [place] [address] [phone] Messi Mccollum MD [address] [place] [address] 10/14/2024 2:15 PM EDT Telemedicine [facility] MEDICINE [address] [place] [address] 12971 Sammy Reilly MD [address] [place] [address] [phone] documented as of this encounter Goals Goal Patient Goal Type Associated Problems Recent Progress Patient-Stated? Author Check and record your blood sugars as directed Blood Pressure No Jimbo Burris PharmD Short-term: Promote adherence to treatment regimen General Jimbo Barlow PharmJonathan Take your medication every day Lifestyle No Jimbo Burris PharmD documented as of this encounter Visit Diagnoses Diagnosis Hypertension secondary to other renal disorders documented in this encounter Additional Health Concerns Assessment Noted Time PHQ-9 Depression Total Score: 11 023 9:59 AM EDT documented as of this encounter Care Teams Medical Appliance Maker Relationship Specialty Start Date End Date Sammy Reilly MD [address] [place] [address] [phone] PCP - General Internal Medicine 12/23/13 [employer] 04/08/22 Tj Larose MD Care Aide Nephrology 04/10/24 documented as of this encounter
--- OUTSIDE RECORDS SUMMARY | 2024-09-12 16:33 | XMS_ITS | Encounter Summary ---
Author Organization [facility] Address 75 [facility] 7t [place] [address] Care Team Providers Care Concrete Precast Moulder Name Role Phone Sammy Reilly MD Primary Care Provide r Reason for Visit * Reason Onset Date Comments Referral 09/14/2022 Encounter Details Date Type Department Care Team ([facility] st Contact Info) Description 09/14/2022 Telephone [facility] 230 [place] [address] Sammy Reilly MD 230 [place] [address] Referral Social History Tobacco Use Types Packs/Day [...] 09/14/2022 2:57 PM EDT T/C returned to [facility] re below message. Heidy stated pt was [...] appt. Heidy stated Chelly who is her MASS SPECTROMETRY MANAGER is the only who fully care for her and keeps her going to appts, she also has VNA that come 2x a day and an CUSTODY OFFICER that comes to check up on her as well. Heidy verbalized understanding and denied having any further questions or concerns at this time. * Telephone Encounter - Brandee Christie - 09/14/2022 10:32 AM EDT Tc from Heidy Bahena Nurse with [facility] requesting a status on other two referral for Pulmonary and GI. Please contact Heidy at [phone] documented in this encounter Plan of Treatment Upcoming Encounters Date Type Department Care Team (Late st Contact Info) Description 09/26/2024 1:00 PM EDT Office Visit [facility] [address] [place] [address] [phone] Messi Mccollum MD [address] [place] [address] [phone] 10/14/2024 2:15 PM EDT Telemedicine [facility] [address] [place] [address] [phone] Sammy Reilly MD [address] [place] [address] [phone] documented as of this encounter Visit Diagnoses Diagnosis Uncomplicated opioid dependence (CMS/HCC) documented in this encounter Care Teams Concrete Precast Moulder Relationship Specialty Start Date End Date Sammy Reilly MD 230 [place] [address] PCP - General Internal Medicine 12/23/13 [employer] 04/08/22 Tj Larose MD Machine Sneller Nephrology 04/10/24 documented as of this encounter
--- OUTSIDE RECORDS SUMMARY | 2024-09-12 16:34 | XMS_ITS | Encounter Summary ---
Author Organization [employer] Address [address] 7t [place] [address] Care Team Providers Care Steward/Stewardess Room Name Role Phone Sammy Reilly MD Primary Care Provide r Reason for Visit * Reason Comments Med Refill Encounter Details Date Type Department Care Team (Late st Contact Info) Description 06/16/2024 Refill [facility] MED[facility]INE [address] [place] [address] Messi Mccollum MD [address] [place] [address] Uncomplicated opioid dependence (CMS/HCC) Social History Tobacco [...] the past 12 months, has t he [employer], gas, oil or water company threatened to [...] Description 09/26/2024 1:00 PM EDT Office Visit [facility] MEDICINE [address] [place] [address] Messi Mccollum MD [address] [place] [address] 10/14/2024 2:15 PM EDT Telemedicine [facility] [address] [place] [address] Sammy Reilly MD [address] [place] [address] documented as of this encounter Goals Goal [...] documented as of this encounter Care Teams Steward/Stewardess Room Relationship Specialty Start Date End Date Sammy Reilly MD [address] [place] [address] PCP - General Internal Medicine 12/23/13 [employer] 04/08/22 Tj Larose MD [employer] Laborer Nephrology 04/10/24 documented as of this encounter
--- OUTSIDE RECORDS SUMMARY | 2024-09-12 16:34 | XMS_ITS | Encounter Summary ---
Author Organization [employer] Address [address] 7t [place] [address] Care Team Providers Care Stand Grinder Name Role Phone Sammy Reilly MD Primary Care Provide r Reason for Visit * Reason Comments Med Refill Encounter Details Date Type Department Care Team ([facility] st Contact Info) Description 01/16/2024 Refill [facility] MED[facility]INE [address] [place] [address] Sammy Reilly MD [address] [place] [address] Primary hypertension Social History Tobacco Use Types [...] Description 09/26/2024 1:00 PM EDT Office Visit [facility] MEDICINE [address] [place] [address] Messi Mccollum MD [address] [place] [address] 10/14/2024 2:15 PM EDT Telemedicine [facility]INE [address] [place] [address] Sammy Reilly MD [address] [place] [address] documented as of this encounter Goals Goal [...] documented as of this encounter Care Teams Stand Grinder Relationship Specialty Start Date End Date Sammy Reilly MD [address] [place] [address] PCP - General Internal Medicine 12/23/13 [employer] 04/08/22 Tj Larose MD Tabber Nephrology 04/10/24 documented as of this encounter
--- OUTSIDE RECORDS SUMMARY | 2024-09-12 16:34 | XMS_ITS | Clinical Summary ---
Author Organization [facility] Address [address] [address] Phone Care Team Providers Care Night Clerk Name Role Phone Unavailable Primary Care Provider [...] Treatment [facility] [address] [phone] Tj Larose MD End stage renal disease; Dependence on renal dialysis 09/06/2024 Treatment [facility] [address] [phone] Tj Larose MD End stage renal disease; Dependence on renal dialysis 08/30/2024 Treatment [facility] [address] [phone] Tj Larose MD End stage renal disease; Dependence on renal dialysis 08/19/2024 Treatment [facility] [address] [phone] Tj Larose MD End stage renal disease; Dependence on renal dialysis 08/14/2024 Treatment [facility] [address] [phone] Tj Larose MD End stage renal disease; Dependence on renal dialysis 08/05/2024 Treatment [facility] [address] [phone] Tj Larose MD End stage renal disease; Dependence on renal dialysis 07/31/2024 Treatment [facility] [address] [phone] Tj Larose MD End stage renal disease; Dependence on renal dialysis 07/26/2024 Treatment [facility] [address] [phone] Tj Larose MD End stage renal disease; Dependence on renal dialysis 07/24/2024 Orders Only [facility] [address] [phone] Tj Larose MD 07/12/2024 Treatment [facility] [address] [phone] Tj Larose MD 07/05/2024 Treatment [facility] [address] [phone] Tj Larose MD 07/01/2024 Treatment [facility] [address] [address] Clive Lange MD 06/24/2024 Treatment [facility] [address] [phone] Tj Larose MD 06/19/2024 Treatment [facility] [address] [phone] Tj Larose MD from Last 3 Months [...] EDT us Tj Larose MD LAB HISTORICA [id number] RESULTS Final Result [facility] [address] [place] [address] * (ABNORMAL) Hemoglobin (09/06/2024 3:00 AM EDT) Only the most recent of2 resultswithin the time period is included. Pathologist [facility] Hgb 10.6(L) 11.2 - 15.7 g/dL [facility] Hemoglobin x 3 31.8(L) 33.6 - 47.1 g/dL [facility] 09/06/2024 3:00 AM EDT 09/09/2024 12:57 PM EDT us Tj Larose MD LAB BLOOD ORDERABLES Final Result Performing Organization Address [facility]/ZIP Co de Phone Number [facility] [address] [place] [address] * LIH (08/21/2024 3:00 AM EDT) Only the most recent of2 resultswithin the time period is included. Pathologist [facility] Lipemia Normal Normal [facility] Icterus Normal Normal [facility] Hemolysis Normal Normal [facility] 08/21/2024 3:00 AM EDT 08/23/2024 1:28 PM EDT us Tj Larose MD LAB HISTORICA [id number] RESULTS Final Result Performing Organization Address City/[facility]/ZIP Co de Phone Number [facility] [address] [place] [address] * (ABNORMAL) Kt/V Natural Log, URR (08/21/2024 3:00 AM EDT) Only the most recent of2 resultswithin the time period is included. Pathologist [facility] Treatment Time 182 min [facility] Pre-Weight, lb [...] PM EDT Tj Larose MD LAB HISTORICA [id number] RESULTS Final Result Performing Organization Address [facility] de Phone Number [facility] [address] [place] [address] * Calcium Phosphorus Product, Adjusted (08/21/2024 3:00 [...] PM EDT Tj Larose MD LAB HISTORICA [id number] RESULTS Final Result Performing Organization Address [facility] de Phone Number [facility] [address] [place] [address] * Hepatitis B Surface Ag w/Reflex Confirmation (08/21/2024 3:00 AM EDT) Only the most recent of2 resultswithin the time period is included. Hep B Surface Antigen Negative Negative [facility] 08/21/2024 3:00 AM EDT 08/23/2024 1:28 PM EDT Tj Larose MD LAB BLOOD ORDERABLES Final Result Performing Organization Address City/[facility] de Phone Number [facility] [address] [place] [address] * (ABNORMAL) TSAT (08/21/2024 3:00 AM EDT) Only the most recent of2 resultswithin the time period is included. [facility] Iron 54 50 - 170 ug/dL [facility] Transferrin 148(L) 250 - 380 mg/dL [facility] TIBC 207(L) 211 - 406 ug/dL [facility] Iron Saturation (TSat) 26 22 - 52 % [facility] 08/21/2024 3:00 AM EDT 08/23/2024 1:28 PM EDT Tj Larose MD LAB BLOOD ORDERABLES Final Result Performing Organization Address [facility] de Phone Number [facility] [address] [place] [address] * (ABNORMAL) CBC and Differential (08/21/2024 3:00 AM EDT) Only the most recent of2 resultswithin the time period is included. [facility] DIFFERENTIAL MANUAL, 2 Not Indicated [facility] [...] BLOOD ORDERABLES Final Result Performing Organization Address City/[facility]/ZIP Co de Phone Number [facility] [address] [place] [address] * ALT (08/21/2024 3:00 AM EDT) Only the most recent of2 resultswithin the time period is included. ALT (SGPT) 14 10 - 49 U/L [facility] 08/21/2024 3:00 AM EDT 08/23/2024 1:28 PM EDT Tj Larose MD LAB BLOOD ORDERABLES Final Result Performing Organization Address [facility] Co de Phone Number [facility] [address] [place] [address] * AST (08/21/2024 3:00 AM EDT) Only the most recent of2 resultswithin the time period is included. AST (SGOT) 24 <34 U/L [facility] 08/21/2024 3:00 AM EDT 08/23/2024 1:28 PM EDT us Tj Larose MD LAB BLOOD ORDERABLES Final Result Performing Organization Address City/[facility] Co de Phone Number [facility] [address] [place] [address] * Protein, total (08/21/2024 3:00 AM EDT) Only the most recent of2 resultswithin the time period is included. Total Protein 7.2 6.4 - 8.9 g/dL [facility] 08/21/2024 3:00 AM EDT 08/23/2024 1:28 PM EDT Tj Larose MD LAB BLOOD ORDERABLES Final Result Performing Organization Address [facility] Co de Phone Number [facility] [address] [place] [address] * (ABNORMAL) Alkaline phosphatase (08/21/2024 3:00 AM EDT) Only the most recent of2 resultswithin the time period is included. Alkaline Phosphatase 144(H) 46 - 116 U/L [facility] 08/21/2024 3:00 AM EDT 08/23/2024 1:28 PM EDT Tj Larose MD LAB BLOOD ORDERABLES Final Result Performing Organization Address [facility] de Phone Number [facility] [address] [place] [address] * (ABNORMAL) PTH, Intact (08/21/2024 3:00 AM [...] Final Result Performing Organization Address [facility] Co de Phone Number [facility] [address] [place] [address] * (ABNORMAL) Magnesium (08/21/2024 3:00 AM EDT) Only the most recent of2 resultswithin the time period is included. Magnesium 2.9(H) 1.9 - 2.7 mg/dL [facility] 08/21/2024 3:00 AM EDT 08/23/2024 1:28 PM EDT us Tj Larose MD LAB BLOOD ORDERABLES Final Result Performing Organization Address [facility] de Phone Number [facility] [address] [place] [address] * (ABNORMAL) Lactate dehydrogenase (08/21/2024 3:00 AM EDT) Only the most recent of2 resultswithin the time period is included. LDH 316(H) 120 - 246 U/L [facility] 08/21/2024 3:00 AM EDT 08/23/2024 1:28 PM EDT us Tj Larose MD LAB BLOOD ORDERABLES Final Result Performing Organization Address [facility] de Phone Number [facility] [address] [place] [address] * Hemoglobin A1c (08/21/2024 3:00 AM EDT) [...] BLOOD ORDERABLES Final Result Performing Organization Address [facility] de Phone Number [facility] [address] [place] [address] * (ABNORMAL) Glucose, random (08/21/2024 3:00 AM EDT) Only the most recent of2 resultswithin the time period is included. Glucose 121(H) 74 - 109 mg/dL [facility] 08/21/2024 3:00 AM EDT 08/23/2024 1:28 PM EDT Tj Larose MD LAB BLOOD ORDERABLES Final Result Performing Organization Address [facility] de Phone Number [facility] [address] [place] [address] * (ABNORMAL) Ferritin (08/21/2024 3:00 AM EDT) Only the most recent of2 resultswithin the time period is included. Ferritin 1,524(H) 10 - 291 ng/mL [facility] 08/21/2024 3:00 AM EDT 08/23/2024 1:28 PM EDT Tj Larose MD LAB BLOOD ORDERABLES Final Result Performing Organization Address [facility] de Phone Number [facility] [address] [place] [address] * (ABNORMAL) Creatinine, serum (08/21/2024 3:00 AM EDT) Only the most recent of2 resultswithin the time period is included. Creatinine 6.45(H) 0.55 - 1.02 mg/dL [facility] 08/21/2024 3:00 AM EDT 08/23/2024 1:28 PM EDT us Tj Larose MD LAB BLOOD ORDERABLES Final Result Performing Organization Address [facility] de Phone Number [facility] [address] [place] [address] * (ABNORMAL) Bilirubin, total (08/21/2024 3:00 AM EDT) Only the most recent of2 resultswithin the time period is included. Total Bilirubin <0.2(L) 0.3 - 1.2 mg/dL [facility] 08/21/2024 3:00 AM EDT 08/23/2024 1:28 PM EDT Tj Larose MD LAB BLOOD ORDERABLES Final Result [facility] [address] [place] [address] * (ABNORMAL) Lipid panel (08/21/2024 3:00 AM [...] BLOOD ORDERABLES Final Result Performing Organization Address City/[facility] Co de Phone Number [facility] [address] [place] [address] * (ABNORMAL) Electrolyte panel (08/21/2024 3:00 AM [...] Final Result Performing Organization Address [facility] de Phone Number [facility] [address] [place] [address] from Last 3 Months Insurance [facility] ([id number]) [place] [address] [facility] ([id number]) [place] [address]
--- OUTSIDE RECORDS SUMMARY | 2024-09-12 16:34 | XMS_ITS | Clinical Summary ---
Author Organization [facility] Address [address] [place] [address] Phone Care Team Providers Care Communication Analyst Name Role Phone Sammy Vicente MD Primary [...] Upcoming Encounters Date Type Department Care Team ([facility] Contact Info) Description 09/29/2024 2:45 PM EDT Consult Orthopedic Surgery - [place] [phone] [phone] Santhosh Patricia, JESSIE [address] [address] Health Maintenance Due Date Last Done Comments [...] ID:[id number] Group ID:[id number] Type:Not on file Address: [place] [address] [place] [address] Care Teams Communication Analyst Relationship Specialty Start Date End Date Sammy Vicente MD [address] [place] [address] [phone] PCP - General Internal Medicine 08/01/24
--- OUTSIDE RECORDS SUMMARY | 2024-09-12 16:34 | XMS_ITS | Encounter Summary ---
Author Organization [employer] Address [address] 7t [place] [address] Care Team Providers Care Intellectual Property Lawyer Name Role Phone Sammy Reilly MD Primary Care Provide r Reason for Visit * Reason Onset Date Comments Durable Medical Equipment 09/03/2024 Encounter Details Date Type Department Care Team (Late st Contact Info) Description 09/03/2024 Telephone [facility] MEDICINE [address] [place] [address] Sammy Reilly MD [address] [place] [address] Durable Medical Equipment Social History Tobacco Use [...] please advise them to contact Anam at [phone]. * Telephone Encounter - Gretchen Loyola - [...] Description 09/26/2024 1:00 PM EDT Office Visit [facility] MEDICINE [address] [place] [address] [phone] Messi Mccollum MD [address] [place] [address] [phone] 10/14/2024 2:15 PM EDT Telemedicine [facility]INE [address] [place] [address] [phone] Sammy Reilly MD [address] [place] [address] [phone] documented as of this encounter Goals Goal [...] documented as of this encounter Care Teams Intellectual Property Lawyer Relationship Specialty Start Date End Date Sammy Reilly MD [address] [place] [address] [phone] PCP - General Internal Medicine 12/23/13 [employer] 04/08/22 Tj Larose MD Donor Center Technician Nephrology 04/10/24 documented as of this encounter
--- OUTSIDE RECORDS SUMMARY | 2024-09-12 16:34 | XMS_ITS | Encounter Summary ---
Author Organization [facility] Address [address] [place] [address] Care Team Providers Care Lead Game Designer Name Role Phone Sammy Strickland MD Primary Care Provider [phone] Encounter Details Date Type Department Care Team [...] on filedocumented in this encounter Care Teams Lead Game Designer Relationship Specialty Start Date End Date Sammy Strickland MD [address] [place] [address] [place] [address] PCP - General 03/27/22 documented as of this encounter
--- OUTSIDE RECORDS SUMMARY | 2024-09-12 16:34 | XMS_ITS | Encounter Summary ---
Author Organization [employer] Address [address] 7t [place] [address] Care Team Providers Care System Integration Engineer Name Role Phone Sammy Reilly MD Primary Care Provide r Reason for Visit * Reason Onset Date Comments Appointment Request 07/08/2024 Encounter Details Date Type Department Care Team ([facility] st Contact Info) Description 07/08/2024 Telephone [facility] MEDICINE [address] [place] [address] Sammy Reilly MD [address] [place] [address] Appointment Request Social History Tobacco Use Types [...] 07/08/2024 3:58 PM EST Tc from pt HOSPITAL PLAN ADMINISTRATOR stating that pt is requesting apt with PCP due to not being seen in a while and she wants to get checked up. Pt wants to give info to PCP or nurse. Contact pt HOSPITAL PLAN ADMINISTRATOR at [phone] documented in this encounter Plan of Treatment Upcoming Encounters Date Type Department Care Team (Late st Contact Info) Description 09/26/2024 1:00 PM EDT Office Visit [facility] MEDICINE [address] [place] [phone] Messi Mccollum MD [address] [place] [phone] 10/14/2024 2:15 PM EDT Telemedicine [facility] MEDICINE [address] [place] [phone] Sammy Reilly MD [address] [place] [address] documented as of this encounter Goals Goal [...] documented as of this encounter Care Teams System Integration Engineer Relationship Specialty Start Date End Date Sammy Reilly MD [address] [place] [address] PCP - General Internal Medicine 12/23/13 [employer] 04/08/22 Tj Larose MD Mathematician Research Nephrology 04/10/24 documented as of this encounter
--- OUTSIDE RECORDS SUMMARY | 2024-09-12 16:34 | XMS_ITS | Encounter Summary ---
Author Organization [facility] Address [address] [place] [address] Phone Care Team Providers Care Manager Civil Name Role Phone Unavailable Primary Care Provider Unavailabl e Encounter Details Date Type Department Care Team (Late st Contact Info) Description 07/18/2022 Telephone [facility] [address] [place] [address] Concepción Cruz [place] Social History [...]
--- OUTSIDE RECORDS SUMMARY | 2024-09-12 16:34 | XMS_ITS | Continuity of Care Document ---
Author Organization [employer] Address [address] [place] [address] Care Team Providers Care Training And Development Manager Name Role Phone HIM [facility] OTHER [facility] Primary Care Provider Assessment Encounter Date Assessment Date Assessment LastModified by Organization Details LastModified Time 09/07/2024 09/07/2024 I have reviewed and agree with the assessment and plan as documented by the brand recorder. I provided real-time medical direction for this encounter and was immediately available to provide additional phone-based assistance as needed. History as noted in EMR and by brand recorder. I would add / emphasize: Patient seen [...] Orders senna 8.6 mg tablet 2024 025 [facility], [address] [place], [place], [id number], 5 14:38:58 docusate sodium 100 mg capsule 2024 025 [facility], [address] [place], [place], [id number], 5 17:41:02 Patient TargetsNo targets recorded. Patient [...] SNOMED-CT Code Diagnosis ICD10 Code Diagnosis Note [id number] Jaxon Romero MD [facility] [address] [place] [phone] 08/11/2024 15:53:35 08/11/2024 20:19:42 Sore throat [id number] J02.9 [id number] Ariel Rangel MD [facility] [address] [place] [phone] 09/07/2024 16:57:14 09/08/2024 14:48:15 External hemorrhoids [id number] K64.4 Health Concerns Section Related Observation LastModified by Organization Detai ls LastModified Time None Recorded Concern Status LastModified by Organization Details LastModified Time None Recorded Payers Encounter Date Sequence Insurance Name Policy Number Policy Finley Covered Member ID Finley Member ID Guarantor Name 09/07/2024 1 [facility] [employer] - DOS ON OR AFTER 2022 - DUAL ELIGIBLE - DETENTION OPTIONS AND ONE CARE (MEDICARE REPLACEMENT/ADV ANTAGE - HMO) Cruz Muller [id number] Cruz Muller Notes Date Note Type Note [...] .................. .................. .................. .................. .................. .................. ............... Production Stage Manager Note From Neptali Hernandez: This visit is [...] .................. .................. .................. .................. .................. .................. ............... [facility] Consulted: Ariel Rangel .................. .................. .................. .................. .................. .................. .................. ............... Disposition: Fulfilled Ariel Rangel MD [address] [place] [address],[address], [place], [address], [facility] 09/07/2024 19:52:57 OBGyn Episode No OBEpisode recorded.
--- OUTSIDE RECORDS SUMMARY | 2024-09-12 16:34 | XMS_ITS | Encounter Summary ---
Author Organization [employer] Address [address] [place] [address] Care Team Providers Care Public Relations Analyst Name Role Phone Sammy Reilly MD Primary Care Provide r Reason for Visit * Reason Comments Med Refill Encounter Details Date Type Department Care Team ([facility] st Contact Info) Description 07/31/2024 Refill [facility] MEDICINE [address] [place] [address] Geena Umana CNM [address] [place] [address] Social History Tobacco Use Types Packs/Day Years [...] the past 12 months, has t he [employer], gas, oil or water [employer] threatened to shut off services in your [...] Description 09/26/2024 1:00 PM EDT Office Visit [facility] MEDICINE [address] [place] [phone] Messi Mccollum MD [address] [place] [phone] 10/14/2024 2:15 PM EDT Telemedicine [facility]ICINE [address] [place] [phone] Sammy Reilly MD [address] [place] [address] [phone] documented as of this encounter Goals Goal Patient Goal Type Associated Problems Recent Progress Patient-Stated? Author Check and record your blood sugars as directed Blood Pressure No Jimbo Burris PharmD Short-term: Promote adherence to treatment regimen General No Jimbo Burris PharmJonathan Take your medication every day Lifestyle No Fatuma, Jimbo, PharmD documented as of this encounter Visit Diagnoses Not on filedocumented in this encounter Additional Health Concerns Assessment Noted Time PHQ-9 Depression Total Score: 11 024 9:25 AM EDT documented as of this encounter Care Teams Public Relations Analyst Relationship Specialty Start Date End Date Sammy Reilly MD [address] [place] [phone] PCP - General Internal Medicine 12/23/13 [employer] 04/08/22 Tj Larose MD Audio Visual Project Manager Nephrology 04/10/24 documented as of this encounter
--- OUTSIDE RECORDS SUMMARY | 2024-09-12 16:34 | XMS_ITS | Encounter Summary ---
Author Organization [employer] Address 75 [facility] [address] 7t [place] [address] Care Team Providers Care Racing Mechanic Name Role Phone Sammy Reilly MD Primary Care Provide r Reason for Visit * Reason Onset Date Comments PA 06/10/2024 Encounter Details Date Type Department Care Team ([facility] st Contact Info) Description 06/10/2024 Telephone [facility] [address] [place] [address] Sammy Reilly MD [address] [place] [address] PA Social History Tobacco Use Types Packs/Day [...] Description 09/26/2024 1:00 PM EDT Office Visit [facility] [address] [place] [address] [phone] Messi Mccollum MD [address] [place] [phone] 10/14/2024 2:15 PM EDT Telemedicine [facility] [address] [place] [address] [phone] Sammy Reilly MD [address] [place] [phone] documented as of this encounter Goals [...] documented as of this encounter Care Teams Racing Mechanic Relationship Specialty Start Date End Date Sammy Reilly MD [address] [place] [address] [phone] PCP - General Internal Medicine 12/23/13 [employer] 04/08/22 Tj Larose MD Ship Worker Nephrology 04/10/24 documented as of this encounter
--- OUTSIDE RECORDS SUMMARY | 2024-09-12 16:34 | XMS_ITS | Encounter Summary ---
Author Organization [employer] Address 75 [facility] [address] 7t [place] [address] Care Team Providers Care Stamp Machine Servicer Name Role Phone Sammy Reilly MD Primary Care Provide r Encounter Details Date Type Department Care Team ([facility] st Contact Info) Description 06/26/2024 Telephone [facility] [address] [place], [place] [phone] Sammy Reilly MD [address] [place] [address] Social History Tobacco Use Types Packs/Day Years [...] the past 12 months, has t he [employer], gas, oil or water [employer] threatened to shut off services in your [...] Description 09/26/2024 1:00 PM EDT Office Visit [facility] [address] [place] [address] [phone] Messi Mccollum MD [address] [place] [address] 10/14/2024 2:15 PM EDT Telemedicine [facility] [address] [place] [address] [phone] Sammy Reilly MD [address] [place] [address] 7[address] documented as of this encounter Goals Goal [...] documented as of this encounter Care Teams Stamp Machine Servicer Relationship Specialty Start Date End Date Sammy Reilly MD [address] [place] [address] [phone] PCP - General Internal Medicine 12/23/13 [employer] 04/08/22 Tj Larose MD Cane Piler Nephrology 04/10/24 documented as of this encounter
--- OUTSIDE RECORDS SUMMARY | 2024-09-12 16:34 | XMS_ITS | Encounter Summary ---
Author Organization [employer] Address [address] [facility] [address] 7t [place] [address] Care Team Providers Care Slide Developer Name Role Phone Sammy Reilly MD Primary Care Provide r Encounter Details Date Type Department Care Team (Late st Contact Info) Description 07/28/2024 Orders Only [facility] [address] [place] [address] ProviderWillow MD Social History Tobacco Use Types Packs/Day Years [...] Description 09/26/2024 1:00 PM EDT Office Visit [facility] [address] [place] [address] [phone] Messi Mccollum MD [address] [place] [address] 198[address] 10/14/2024 2:15 PM EDT Telemedicine [facility] [address] [place] [address] [phone] Sammy Reilly MD [address] [place] [address] [phone] documented as of this encounter Goals Goal [...] documented as of this encounter Care Teams Slide Developer Relationship Specialty Start Date End Date Sammy Reilly MD [address] [place] [address] [phone] PCP - General Internal Medicine 12/23/13 [employer] 04/08/22 Tj Larose MD Keno Dealer Nephrology 04/10/24 documented as of this encounter
--- OUTSIDE RECORDS SUMMARY | 2024-09-12 16:34 | XMS_ITS | Encounter Summary ---
Author Organization [employer] Address [address] [facility] [address] 7t [place] [address] Care Team Providers Care Lead Military Analyst Name Role Phone Sammy Reilly MD Primary Care Provide r Reason for Visit * Reason Onset Date Comments FYI 08/15/2024 Encounter Details Date Type Department Care Team ([facility] st Contact Info) Description 08/15/2024 Telephone [facility] 230 [place] [address] Sammy Reilly MD [address] [place] [address] FYI Social History Tobacco Use Types Packs/Day [...] - 08/15/2024 4:49 PM EDT TC from [facility] with [facility] reports appeal for expedited continuation of service was denied because [place] continue [facility] until 09/24/24 documented in this encounter Plan of Treatment Upcoming Encounters Date Type Department Care Team (Late st Contact Info) Description 09/26/2024 1:00 PM EDT Office Visit [facility] [address] [place] [address] 0[address] Messi Mccollum MD [address] [place] [address] 384[address] 10/14/2024 2:15 PM EDT Telemedicine [facility] [address] [place] [address] [phone] Sammy Reilly MD [address] [place] [address] documented as of this encounter Goals Goal [...] documented as of this encounter Care Teams Lead Military Analyst Relationship Specialty Start Date End Date Sammy Reilly MD [address] [place] [address] PCP - General Internal Medicine 12/23/13 [employer] 04/08/22 Tj Larose MD Consumer Banker Nephrology 04/10/24 documented as of this encounter
[2024-09-12 18:12] LABS: Bacterial Vaginosis PCR NEGATIVE (Negative); Candida Group PCR NOT DETECTED (Not Detect); Candida glab krusei PCR NOT DETECTED (Not Detect); Trichomonas vaginalis PCR NOT DETECTED (Not Detect)
== END 2024-09-12 16:30 | disposition home or self-care (01) ==
LOC: HO.HHCLNP 16:29
PROVIDERS: Visit Provider Internal Medicine
DX: N89.8 Other specified noninflammatory disorders of vagina (principal)
CPT/HCPCS: 81515

== ENCOUNTER 2024-09-15 14:24 | Outpatient (AMB) | payer OTHER, SELFPAY ==
--- NOTE | 2024-09-15 14:36 | A.OFFVIS_ITS ---
Intake Visit Reasons: renal cyst Intake Note: New Patient presents for initial visit for renal cyst Urology Medications: none Blood Thinner: aspirin Rn Documentation Specialist Required: No Accompanied by: Unknown Allergies No Known Allergies Allergy (Verified 09/15/24 15:18) Medication List - Last Reconciled 09/15/24 by GRETTA Garcia acetaminophen 500 mg PO Q8H PRN albuterol sulfate 90 mcg/actuation (Ventolin HFA) 2 puffs inhalation Q4H PRN albuterol sulfate 1 amp inhalation Q6H PRN amlodipine 10 mg PO DAILY aspirin 1 tab PO DAILY buprenorphine-naloxone 12-3 mg 1 film sublingual DAILY calcium acetate(phosphat bind) 1,334 mg PO TIDWM carvedilol 25 mg PO BID clonidine HCl 0.1 mg PO TID diclofenac sodium 1% 2 grams topical BID PRN docusate sodium (Colace) 100 mg PO BID PRN MDD Constipation glucose 16 grams PO Q15M PRN hydralazine 50 mg See Protocol PO TID isosorbide dinitrate 30 mg PO TID lactulose 10 grams PO DAILY PRN melatonin 5 mg PO BEDTIME PRN mirtazapine 15 mg PO BEDTIME ondansetron HCl 4 mg PO Q12H PRN pantoprazole 40 mg PO DAILY@0630 sodium zirconium cyclosilicate (Lokelma) 10 grams PO MOWEFR@0900 trazodone 100 mg PO BEDTIME PRN vit B comp no.6-zowjv-C-biotin 1-60-300 mg-mg-mcg (Elle-Sharifa Rx) 1 tab PO DAILY HPI Comments Details: Heidy is a pleasant 69-year-old Turkish-speaking female patient of Dr.Esparza- Whitehead who was accompanied by her LABORER HEADING at today's office visit. She has a past medical history of chronic renal failure end-stage renal disease on dialysis Sunday, type 2 diabetes, hypertension, hemorrhoids, pulmonary congestion, asthma, COPD, heart failure with a preserved ejection fracture, constipation, ascites, anasarca, ischemic colitis, and anemia. She presents to the office today as a new patient for renal cysts. In discussion with the patient and LABORER HEADING today they report having recently been admitted due to missed dialysis and patient was noted to have acute kidney injury on superimposed chronic kidney disease at which time she was admitted for planned dialysis. She reports having had imaging completed and recommendations were made for urology referral for further assessment evaluation. These results were reviewed with the patient today 08/12 there is no hydronephrosis. Bilateral renal atrophy is present. Left renal hypodensities are presumably be cysts per radiology report. The bladder is nondilated. There is rectal wall thickening with mild adjacent edema consistent with proctitis. She discusses throughout today's appointment her made concern his her ongoing issues with her rectum. She reports following up with provider through [facility] regarding this issue. We discussed potential causes of renal cysts as well as surveillance monitoring. We discussed atrophic kidneys in the setting of end-stage renal disease/dialysis. Unable to obtain urine for urinalysis as patient reports she no longer urinates. She denies any bothersome urinary issues. She denies flank pain, fever, and or chills. She otherwise offers no other issues or concerns at this time. [facility] Medical History Chronic renal failure Essential hypertension ESRD (end stage renal disease) on dialysis Diabetes mellitus Hemorrhoids that prolapse with straining, but retract spontaneously Hemorrhoids with complication ESRD on dialysis Delirium Sepsis Tachycardia Leukocytosis Fever End stage chronic kidney disease Congestive heart failure with left ventricular dysfunction ESRD (end stage renal disease) Hypertension Pulmonary congestion COVID-19 virus infection Asthma with COPD with exacerbation COVID ESRD (end stage renal disease) Hypertrophic cardiomyopathy Acute exacerbation of chronic obstructive pulmonary disease (COPD) Heart failure with preserved ejection fraction Constipation End stage renal disease on dialysis Ascites Anasarca Ischemic colitis Acute GI bleeding Anemia Dialysis patient, noncompliant Anemia in chronic kidney disease Opioid withdrawal Essential hypertension Surgical History No pertinent past surgical history Family History Other Hypertension Social History Household Members: Family Housing: Apartment Do you presently have visiting nurse or other home services: Yes (vna) Unable to assess alcohol history related to: Unknown Alcohol intake: former Comment: pt in dialysis at this time. Patient Tobacco Use Status: Current everyday Tobacco user Tobacco use type: Cigarette Cigarette Packs Per Day: 2 Cigarettes Per Day: 1 Years Smoked: 50 +/- e-Cigarette/Vaping Use: Never Used Second Hand Smoke Exposure: No Substance Use Type: Marijuana Advance Directives Date on File: 04/19/23 service: No Current occupational status: disabled Review of Systems Const Reports as per [facility] Eyes Reports no additional complaints ENT Reports no additional complaints Card Reports as per [facility] Resp Reports as per [facility] GI Reports no additional complaints Reports as per [facility] Musc Reports as per [facility] Neuro Reports as per [facility] Psych Reports as per [facility] Endo Reports as per [facility] Physical Exam Const General: cooperative, comfortable, no acute distress, well developed, alert and awake Nutritional Appearance: overweight Orientation/consciousness: patient oriented x3 Limitations: ambulation with walker HEENT Head: Yes normal to inspection Eyes General: appearance normal, both eyes and all related structures Neck Neck: Yes normal visual inspection Chest Chest palpation & inspection: normal inspection of the chest Resp Effort & Inspection: normal respiratory effort Cardio Rate: regular rate GI Inspection: Yes normal to inspection General: Yes no CVA tenderness Back/Spine/Pelvis Back: no CVA tenderness Skin General skin exam: no rashes or lesions noted Neuro General: patient oriented x3 Extrem General: Yes normal to inspection Psych Appearance: grossly normal Speech and movement: Clear speech present Affect: normal affect Attitude: cooperative Insight: Fair insight present (Psych) Judgement: Fair judgement present (Psych) Results Reviewed Results Reviewed: Date of Service: 07/21/24 Procedure(s): CT abdomen pelvis wo IV con Findings: The liver is unremarkable. Cholecystectomy. There is no hydronephrosis. Bilateral renal atrophy is present. Left renal hypodensities are presumably cysts. 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 Mild thickening left adrenal is likely hyperplasia. There is mild pancreatic atrophy. No abdominal aortic aneurysm. There is no evidence of acute appendicitis. No bowel obstruction. No definite diverticulitis is seen. There is prominent stool in the colon. There are areas of mild colonic wall thickening raising the possibility of mild colitis. The bladder is nondilated. There is rectal wall thickening with mild adjacent edema consistent with proctitis. Impression: Findings of proctitis. Possible mild colitis. Additional findings as above. Assessment & Plan Assessment & Plan (1) Renal cyst: Code(s): N28.1 - Cyst of kidney, acquired Category: Medical Plan Unable to obtain urine for urinalysis as patient is anuric. Recent CT results reviewed with the patient today; as noted above. We discussed potential causes of renal cyst as well as surveillance monitoring. She currently denies any bothersome urological issues or concerns. Continue to follow-up with PCP as well as GI as planned. Will continue with surveillance monitoring. Will obtain renal ultrasound in 6 months. Follow-up in 6 months with imaging to be completed prior; or sooner with any issues, concerns, and or questions. Orders: Orders US renal BI 6 Months N20.0 - Calculus of kidney Patient Instructions: The patient had an opportunity to ask questions regarding the treatment plan. All questions were answered. Physical exam, labs, and imaging were discussed and reviewed in detail. As well as risks, benefits, and discussion of treatment choices. No major barriers to understanding were identified. The patient expressed understanding and agreement with the above treatment plan. The patient was made aware they should contact our office by phone for worsening of their current condition, the appearance of new symptoms, or with any questions or concerns. Compliance is encouraged with any medications and follow up testing that is ordered. It is a privilege to be allowed the opportunity to participate in? your urological care.? Again, if you have any questions or concerns If you have any questions or concerns please do not hesitate to contact me. The office is [phone]. This note is constructed using voice recognition software. While every effort has been made to ensure accuracy bi technical lead errors may have been included. Yours sincerely, GRETTA Garcia Coding Level of Care Code New Pt Level 3 (86683) Diagnoses Renal cyst N28.1
--- OUTSIDE RECORDS SUMMARY | 2024-09-15 17:14 | XMS_ITS | Encounter Summary ---
Author Organization [employer] [facility] Address 75 [facility] 7t [place] [address] Care Team Providers Care Ice Cream Machine Operator Name Role Phone Sammy Reilly MD Primary Care Provide r Reason for Visit * Reason Comments Med Refill Encounter Details Date Type Department Care Team ([facility] Contact Info) Description 02/09/2023 Refill [facility] [address] [place] [address] [phone] Lois Garrett MD [address] [place] [address] Primary insomnia Social History Tobacco Use Types [...] Type Department Care Team ([facility] Contact Info) Description 09/26/2024 1:00 PM EDT Office Visit [facility] [address] [place] [address] [phone] Messi Mccollum MD [address] [place] [address] 10/14/2024 2:15 PM EDT Telemedicine [facility] [address] [place], [place] [phone] Sammy Reilly MD [address] [place], [place] [phone] documented as of this encounter Goals Goal [...] documented as of this encounter Care Teams Ice Cream Machine Operator Relationship Specialty Start Date End Date Sammy Reilly MD [address] [place], [place] [phone] PCP - General Internal Medicine 12/23/13 [email or web address] 04/08/22 Tj Larose MD Traffic Signal Repairer Nephrology 04/10/24 documented as of this encounter
--- OUTSIDE RECORDS SUMMARY | 2024-09-15 17:14 | XMS_ITS | Encounter Summary ---
Author Organization [employer] [facility] Address 75 [facility] 7t [place] [address] Care Team Providers Care Climate Change Risk Assessor Name Role Phone Sammy Reilly MD Primary Care Provide r Reason for Visit * Reason Comments Med Refill Encounter Details Date Type Department Care Team (Late Contact Info) Description 02/12/2023 Refill [facility] [address] [place] [address] Lois Garrett MD [address] [place] [address] Hypertension secondary to other renal disorders Social [...] 1:00 PM EDT Office Visit [facility] [address] [place] [address] Messi Mccollum MD [address] [place] [address] 10/14/2024 2:15 PM EDT Telemedicine [facility] [address] [place] [address] Sammy Reilly MD [address] [place], [place] [phone] documented as of this encounter Goals Goal [...] documented as of this encounter Care Teams Climate Change Risk Assessor Relationship Specialty Start Date End Date Sammy Reilly MD [address] [place] [address] [phone] PCP - General Internal Medicine 12/23/13 [employer] 04/08/22 Tj Larose MD Office Helper Nephrology 04/10/24 documented as of this encounter
--- OUTSIDE RECORDS SUMMARY | 2024-09-15 17:14 | XMS_ITS | Encounter Summary ---
Author Organization [email or web address] Address [address] [facility] [address] 7t [place] [address] Care Team Providers Care Plumbing Designer Name Role Phone Sammy Reilly MD Primary Care Provide r Reason for Visit * Reason Comments Med Refill Encounter Details Date Type Department Care Team ([facility] st Contact Info) Description 05/02/2023 Refill [facility] [address] [place] [address] Messi Mccollum MD [address] [place] [address] Uncomplicated opioid dependence (CMS/HCC) Social History Tobacco [...] 09/26/2024 1:00 PM EDT Office Visit [facility] [address] [place] [address] [phone] Messi Mccollum MD [address] [place] [address] 10/14/2024 2:15 PM EDT Telemedicine [facility] [address] [place] [phone] Sammy Reilly MD [address] [place] [address] 9[address] documented as of this encounter Goals Goal [...] documented as of this encounter Care Teams Plumbing Designer Relationship Specialty Start Date End Date Sammy Reilly MD [address] [place] [address] [phone] PCP - General Internal Medicine 12/23/13 [employer] 04/08/22 Tj Larose MD Email Engineer Nephrology 04/10/24 documented as of this encounter
--- OUTSIDE RECORDS SUMMARY | 2024-09-15 17:14 | XMS_ITS | Encounter Summary ---
Author Organization [employer] [facility] Address 75 [facility] 7t [place] [address] Care Team Providers Care Rn Registry Name Role Phone Sammy Reilly MD Primary Care Provide r Reason for Referral * Consultation (Routine) - Pending Review Specialty Diagnoses / Procedures Referred By Naomi ortiz Referred To Contact Podiatry Diagnoses Right foot pain Heidy Kunz MD [address] [place] [phone] Phone: tel: fax: Referral ID Status Reason Start Date Expiration Date Visits Requested Visits Authorized [id number] Pending Review Specialty Services Required 09/12/2024 09/12/2025 1 1 * Consultation (Urgent) - Authorized Specialty Diagnoses / Procedures Referred By Contbrayden ortiz Referred To Contact Pharmacy Diagnoses Uncontrolled hypertension Heidy Kunz MD [address] [place] [address] Phone: tel: fax: Referral ID Status Reason Start Date Expiration Date Visits Requested Visits Authorized [id number] Authorized Consult and Treat 09/12/2024 09/12/2025 6 6 Reason for Visit * Reason Comments Vaginitis/Bacterial Vaginosis Encounter Details Date Type Department Care Team (Late st Contact Info) Description 09/12/2024 1:00 PM EDT Office Visit [facility] [address] [place] [address] Heidy Kunz MD [address] [place] [address] Uncontrolled hypertension (Primary Dx); Vaginal itching; Rectal [...] MOUTH EVERY DAY 30 tablet 11 B Usredtw-X-Eqmie Acid (Elle-Sharifa Rx) 1 MG tablet TAKE [...] not know exactly the date tells me SYNCHRONOUS MOTOR ASSEMBLER knows, I tried to contact also SYNCHRONOUS MOTOR ASSEMBLER but I was unsuccessful I advised patient [...] not know exactly the date tells me SYNCHRONOUS MOTOR ASSEMBLER knows, I tried to contact also SYNCHRONOUS MOTOR ASSEMBLER but I was unsuccessful I advised patient to be sure she has that appointment and do not miss it * Assessment & Plan Note - Heidy Vargas MD - 09/12/2024 4:16 PM EDT Associated [...] Description 09/26/2024 1:00 PM EDT Office Visit [facility] [address] [place] [phone] Messi Mccollum MD [address] [place] [address] [phone] 10/14/2024 2:15 PM EDT Telemedicine [facility] [address] [place] [address] [phone] Sammy Reilly MD [address] [place] [address] Scheduled Referrals Name Type Priority Associated Diagnoses [...] Jimbo, PharmD documented as of this encounter Procedures Procedure Name Priority Date/Time Associated Diagnosis Comments BACTERIAL VAGINOSIS PANEL Routine 09/12/2024 2:07 PM EDT Vaginal itching documented in this encounter Results * Bacterial Vaginosis Panel (09/12/2024 2:07 PM EDT) TRICHOMONAS VAGINALIS DETECTION BY PCR NOT DETECTED Not Detect [facility] BACTERIAL VAGINOSIS DETECTION BY PCR NEGATIVE Negative [facility] Comment:The BV organism targ ets of the Xpert Xpress MVP test can becommensal in women; Xpert Xpress MVP positive results forbacterial vaginosis should be considered in conjunction withother clinical and patient information to determine thedisease status. Organisms that are not detected by the XpertXpress MVP test have also been reported to be associatedwith BV and aerobic vaginitis.The Xpert Xpress MVP test performance has not been evaluatedin patients under the age of 14. JULY GROUP DETECTION BY PCR NOT DETECTED Not Detect [facility] July glab krusei PCR NOT DETECTED Not Detect [facility] Swab Vaginal structure / Unknown 09/12/2024 2:07 PM EDT 09/12/2024 4:30 PM EDT us Heidy Vargas MD LAB MICROBIOLOGY - NERAL ORDERABLES Final Result [facility] [address] [place] [phone] [phone] documented in this encounter Visit Diagnoses Diagnosis Uncontrolled hypertension- Primary Vaginal itching Pruritus of genital organs Rectal prolapse Right foot pain Pain in soft tissues of limb documented in this encounter Additional Health Concerns Assessment Noted Time PHQ-9 Depression Total Score: 13 09/03/2 025 3:05 PM EDT documented as of this encounter Care Teams Rn Registry Relationship Specialty Start Date End Date Sammy Reilly MD [address] [place] [address] [phone] PCP - General Internal Medicine 12/23/13 [employer] 04/08/22 Tj Larose MD Birth Certificate Clerk Nephrology 04/10/24 documented as of this encounter
--- OUTSIDE RECORDS SUMMARY | 2024-09-15 17:14 | XMS_ITS | Encounter Summary ---
Author Organization [employer] [facility] Address [address] 7t [place] [address] Care Team Providers Care Plant Maintenance Technician Name Role Phone Sammy Reilly MD Primary Care Provide r Reason for Visit * Reason Onset Date Comments Referral 09/14/2022 Encounter Details Date Type Department Care Team ([facility] st Contact Info) Description 09/14/2022 Telephone [facility] [address] [place] [address] Sammy Reilly MD [address] [place] [address] Referral Social History Tobacco Use Types Packs/Day [...] appt. Heidy stated Chelly who is her ACTIVITY ASSISTANT is the only who fully care for her and keeps her going to appts, she also has VNA that come 2x a day and an PROFILING MACHINE SETUP OPERATOR that comes to check up on her as well. Heidy verbalized understanding and denied having any further questions or concerns at this time. * Telephone Encounter - Brandee Christie - 09/14/2022 10:32 AM EDT Tc from Heidy Bahena Nurse with [facility] requesting a status on other two referral for Pulmonary and GI. Please contact Heidy at [phone] documented in this encounter Plan of Treatment Upcoming Encounters Date Type Department Care Team (Late st Contact Info) Description 09/26/2024 1:00 PM EDT Office Visit [facility] [address] [place] [phone] Messi Mccollum MD [address] [place] [phone] 10/14/2024 2:15 PM EDT Telemedicine [facility] [address] [place] [address] [phone] Sammy Reilly MD [address] [place] [phone] documented as of this encounter Visit Diagnoses Diagnosis Uncomplicated opioid dependence (CMS/HCC) documented in this encounter Care Teams Plant Maintenance Technician Relationship Specialty Start Date End Date Sammy Reilly MD [address] [place] [address] PCP - General Internal Medicine 12/23/13 [employer] 04/08/22 Tj Larose MD Heating Plant Superintendent Nephrology 04/10/24 documented as of this encounter
--- OUTSIDE RECORDS SUMMARY | 2024-09-15 17:14 | XMS_ITS | Encounter Summary ---
Author Organization [employer] [facility] Address [address] 7t [place] [address] Care Team Providers Care Carton Machine Operator Name Role Phone Sammy Reilly MD Primary Care Provide r Reason for Visit * Reason Comments Med Refill Encounter Details Date Type Department Care Team (Late Contact Info) Description 02/12/2023 Refill [facility] [address] [place] [address] Margarita Rob ANP [address] [place] [address] Social History Tobacco Use Types Packs/Day Years [...] 1:00 PM EDT Office Visit [facility] [address] [place] [phone] Messi Mccollum MD [address] [place] [address] 10/14/2024 2:15 PM EDT Telemedicine [facility] [address] [place], [place] [phone] Sammy Reilly MD [address] [place], [place] [phone] documented as of this encounter Goals Goal [...] documented as of this encounter Care Teams Carton Machine Operator Relationship Specialty Start Date End Date Sammy Reilly MD [address] [place] [phone] PCP - General Internal Medicine 12/23/13 [employer] 04/08/22 Tj Larose MD Cook Apprentice Pastry Nephrology 04/10/24 documented as of this encounter
--- OUTSIDE RECORDS SUMMARY | 2024-09-15 17:14 | XMS_ITS | Encounter Summary ---
Author Organization [employer] Address [address] 7t [place] [address] Care Team Providers Care Accounts Payable Lead Name Role Phone Sammy Reilly MD Primary Care Provide r Reason for Visit * Reason Comments Med Refill Encounter Details Date Type Department Care Team ([facility] st Contact Info) Description 04/25/2023 Refill [facility] [address] [place] [address] Neptali Coles MD 230 [place] [address] Social History Tobacco Use Types Packs/Day Years [...] Office Visit [facility] MEDICINE [address] [place] [phone] Messi Mccollum MD [address] [place] [address] 10/14/2024 2:15 PM EDT Telemedicine [facility] MED[facility] [address] [place] [phone] Sammy Reilly MD [address] [place] [address] documented as of this encounter Goals Goal [...] as of this encounter Care Teams Accounts Payable Lead Relationship Specialty Start Date End Date Sammy Reilly MD [address] [place] [phone] PCP - General Internal Medicine 12/23/13 [employer] 04/08/22 Tj Larose MD Net Coordinator Nephrology 04/10/24 documented as of this encounter
--- OUTSIDE RECORDS SUMMARY | 2024-09-15 17:14 | XMS_ITS | Encounter Summary ---
Author Organization [employer] Address [address] 7t [place] [address] Care Team Providers Care Instructor Traffic Safety Name Role Phone Sammy Reilly MD Primary Care Provide r Reason for Visit * Reason Comments Med Refill Encounter Details Date Type Department Care Team ([facility] st Contact Info) Description 04/25/2023 Refill [facility] [address] [place] [address] Name, MD Tye [address] [place] [address] Hypertension secondary to other renal disorders; Primary [...] 1:00 PM EDT Office Visit [facility] MED[facility]INE [address] [place] [phone] Messi Mccollum MD [address] [place] [address] 10/14/2024 2:15 PM EDT Telemedicine [facility] [address] [place] [phone] Sammy Reilly MD [address] [place] [phone] documented as of this encounter Goals Goal [...] documented as of this encounter Care Teams Instructor Traffic Safety Relationship Specialty Start Date End Date Sammy Reilly MD [address] [place] [address] [phone] PCP - General Internal Medicine 12/23/13 [employer] 04/08/22 Tj Larose MD Legal Service Specialist Nephrology 04/10/24 documented as of this encounter
--- OUTSIDE RECORDS SUMMARY | 2024-09-15 17:14 | XMS_ITS | Encounter Summary ---
Author Organization [employer] Address [address] 7t [place] [address] Care Team Providers Care Foxing Cutting Machine Operator Name Role Phone Sammy Reilly MD Primary Care Provide r Reason for Visit * Reason Comments Med Refill Encounter Details Date Type Department Care Team ([facility] st Contact Info) Description 04/25/2023 Refill [facility] [address] [place] [address] Messi Mccollum MD [address] [place] [address] Uncomplicated opioid dependence (CMS/HCC) Social History Tobacco [...] 09/26/2024 1:00 PM EDT Office Visit [facility] [address] [place] [address] [phone] Messi Mccollum MD [address] [place] [phone] 10/14/2024 2:15 PM EDT Telemedicine [facility] [address] [place] [phone] Sammy Reilly MD [address] [place] [phone] documented as of this encounter Goals Goal [...] documented as of this encounter Care Teams Foxing Cutting Machine Operator Relationship Specialty Start Date End Date Sammy Reilly MD [address] [place] [address] [phone] PCP - General Internal Medicine 12/23/13 [employer] 04/08/22 Tj Larose MD Belt Puncher Nephrology 04/10/24 documented as of this encounter
--- OUTSIDE RECORDS SUMMARY | 2024-09-15 17:14 | XMS_ITS | Encounter Summary ---
Author Organization [facility] Address [address] [place] [address] Phone Care Team Providers Care Insurance Claims Representative Name Role Phone Unavailable Primary Care Provider Unavailabl e Encounter Details Date Type Department Care Team (Late st Contact Info) Description 11/10/2021 Office Communication [facility] [address] [place] [address] Sigrid Hollingsworth, CELIO Social History [...]
--- OUTSIDE RECORDS SUMMARY | 2024-09-15 17:14 | XMS_ITS | Encounter Summary ---
Author Organization [employer] Address [address] [facility] 7t [place] [address] Care Team Providers Care Records Clerk Name Role Phone Sammy Reilly MD Primary Care Provide r Reason for Visit * Reason Comments Med Refill Encounter Details Date Type Department Care Team (Late st Contact Info) Description 05/05/2022 Refill [facility] [address] [place] [address] Margarita Rob, ANP [address] [place] [address] Chronic obstructive pulmonary disease, unspecified COPD type [...] Visit [facility] MEDICINE [address] [place] [phone] Messi Mccollum MD [address] [place], [place] [phone] 10/14/2024 2:15 PM EDT Telemedicine [facility] MED[facility]INE [address] [place] [address] [phone] Sammy Reilly MD [address] [place], [place] [phone] documented as of this encounter Visit Diagnoses Diagnosis Chronic obstructive pulmonary disease, unspecified COPD type (CMS/HCC)- Primary documented in this encounter Care Teams Records Clerk Relationship Specialty Start Date End Date Sammy Reilly MD [address] [place] [address] [phone] PCP - General Internal Medicine 12/23/13 [employer] 04/08/22 Tj Larose MD Bottle Packing Machine Cleaner Nephrology 04/10/24 documented as of this encounter
--- OUTSIDE RECORDS SUMMARY | 2024-09-15 17:14 | XMS_ITS | Encounter Summary ---
Author Organization [employer] [facility] Address [address] [facility] 7t [place] [address] Care Team Providers Care Commercial Loan Assistant Name Role Phone Sammy Reilly MD Primary Care Provide r Encounter Details Date Type Department Care Team (Late st Contact Info) Description 05/08/2022 Orders Only [facility] [address] [place] [address] [phone] Swetha Ribera LPN Social History Tobacco Use [...] Description 09/26/2024 1:00 PM EDT Office Visit [facility] [address] [place] [phone] Messi Mccollum MD [address] [place] [address] [phone] 10/14/2024 2:15 PM EDT Telemedicine [facility] [address] [place] [address] [phone] Sammy Reilly MD [address] [place] [address] [phone] documented as of this encounter Visit Diagnoses Not on filedocumented in this encounter Care Teams Commercial Loan Assistant Relationship Specialty Start Date End Date Sammy Reilly MD [address] [place] [address] PCP - General Internal Medicine 12/23/13 [employer] 04/08/22 Tj Larose MD Advertising Copy Writer Nephrology 04/10/24 documented as of this encounter
--- OUTSIDE RECORDS SUMMARY | 2024-09-15 17:14 | XMS_ITS | Encounter Summary ---
Author Organization [employer] Address [address] 7t [place] [address] Care Team Providers Care Business Executive Name Role Phone Sammy Reilly MD Primary Care Provide r Encounter Details Date Type Department Care Team ([facility] st Contact Info) Description 09/12/2024 Telephone [facility] MED[facility]INE [address] [place] [address] Sammy Reilly MD [address] [place] [address] Social History Tobacco Use Types Packs/Day Years [...] for patient to contact Nancy Ashby at [phone]. documented in this encounter Plan of Treatment Upcoming Encounters Date Type Department Care Team ([facility] st Contact Info) Description 09/26/2024 1:00 PM EDT Office Visit [facility] MED[facility]INE [address] [place] [phone] Messi Mccollum MD [address] [place] [address] 10/14/2024 2:15 PM EDT Telemedicine [facility] [address] [place] [address] [phone] Sammy Reilly MD [address] [place] [address] documented as of this encounter Goals Goal [...] as of this encounter Care Teams Business Executive Relationship Specialty Start Date End Date Smamy Reilly MD [address] [place] [address] PCP - General Internal Medicine 12/23/13 [employer] 04/08/22 Tj Larose MD Estate Planning Attorney Nephrology 04/10/24 documented as of this encounter
--- OUTSIDE RECORDS SUMMARY | 2024-09-15 17:14 | XMS_ITS | Encounter Summary ---
Author Organization [employer] [facility] Address [address] [facility] 7t [place] [address] Care Team Providers Care Fleet Technician Name Role Phone Sammy Reilly MD Primary Care Provide r Reason for Visit * Reason Comments Med Refill Encounter Details Date Type Department Care Team (Late Contact Info) Description 05/30/2022 Refill [facility] [address] [place] [address] Sammy Reilly MD [address] [place] [address] Social History Tobacco Use Types Packs/Day Years [...] 09/26/2024 1:00 PM EDT Office Visit [facility] 230 [place], [place] [phone] Messi Mccollum MD 230 [place] [address] 10/14/2024 2:15 PM EDT Telemedicine [facility] [address] [facility] [place] [place] [phone] Sammy Reilly MD [address] [place], [place] [phone] documented as of this encounter Visit Diagnoses Not on filedocumented in this encounter Care Teams Fleet Technician Relationship Specialty Start Date End Date Sammy Reilly MD [address] [facility] [place], [place] [phone] PCP - General Internal Medicine 12/23/13 [employer] 04/08/22 Tj Larose MD Heel Top Lift Splitter Nephrology 04/10/24 documented as of this encounter
--- OUTSIDE RECORDS SUMMARY | 2024-09-15 17:14 | XMS_ITS | Clinical Summary ---
Author Organization [employer] Address [address] [facility] [address] [place] [address] Care Team Providers Care Tailor Fitter Name Role Phone Sammy Reilly MD Primary Care Provide r Allergies No known active allergies Medications * This document contains information received from the source organization and may not represent a complete record from that organization. sennosides (Senokot) 8.6 MG tablet TAKE 2 TABLETS BY MOUTH AT BEDTIME 022 Active Spacer/Aero-Hol ding Chambers (Compact Space Chamber) deviceIndicatio ns:Belizean Space chamber use with albuterol pump Active [...] A WEEK 1 each 024 Active B Aaawinn-G-Ghsvs Acid (Elle-Sharifa Rx) 1 MG tablet TAKE [...] dialysis, with long-term current use of insulin ([facility]) Use to check blood sugar 3 times [...] 7 days. 45 g 025 2024 Active hydrALAZINE (Apresoline) 50 MG [...] MG per sublingual filmIndications :Uncomplicated opioid dependence (CMS/[facility]) Place 1 Film under the tongue Once [...] eorder (will not trigger notification to Pharmacy)) fluconazole (Diflucan) 150 MG tabletIndicatio ns:Vaginal itching Take 1 tablet (150 mg) by mouth Once per day for 1 day. 1 tablet 025 2024 Active Problems Problem Noted Date Diagnosed Date [...] 9:17 AM EDT): Pt recently admitted to [facility] for hyperkalemia. Pt's K improved after Lokelma and HD. Her Losartan was discontinued as well Plan: Repeat [facility] Hospital discharge follow-up 10/18/2023 Assessment & Plan (07/15/2024 3:41 PM EST): Pt recently admitted to [facility] from 05/29 until 06/04 after sresented to ER with altered MS and SOB. Found to have hyperkalemia 6.6, HTN, pulmonary edema needing BiPAP support. Undergone emergent dialysis. Also found to have acute pancreatitis with elevated lipase (trended down during hospital stay). Had GI, Nephrology, and Psychiatry consultations while inpatient. Assessment & Plan (10/18/2023 9:17 AM EDT): Pt recently admitted to [facility] 10/16/2023 for hyperkalemia. Pt's K improved after Lokelma and HD. Her Losartan was discontinued as well Plan: Repeat BMP Rectal prolapse 10/18/2023 Assessment & Plan (09/12/2024 4:17 PM EDT): I took today to Heidy her VNA she tells me she does have an upcoming appointment with surgery she does not know exactly the date tells me RHINOLOGIST knows, I tried to contact also RHINOLOGIST but I was unsuccessful I advised patient to be sure she has that appointment and do not miss it Assessment & Plan (07/15/2024 4:01 PM EST): Televisit Pt is well known to the office of General surgeon Dr. Edmundo Mendez who last saw her on 06/16/2024 Patient requested a second opinion at [facility] to discuss her options. Pt was [...] by Dr. Natalie Thrasher General surgeon at [facility] for a full colonoscopy Assessment & Plan (03/11/2024 9:23 AM EDT): Pt here for a follow up after she was seen again at [facility] ER with c/o rectal [...] basis. Patient requested a second opinion at [facility] Surgeons to discuss her options. This referral [...] Mammogram: 01/25/2019 , referred missed appointment previously, RHINOLOGIST tells me she will make the appointment Pap Smear: NL 05/29/2018 Colonoscopy: 07/03/2007, While in the Hospital seen by Dr. cShroeder 05/2022 underwent colonoscopy to mid transverse colon limited as patient refused prepped no colitis or proctitis, noted to have normal mucosa GI recommend to advance diet Chronic diastolic congestive heart failure 06/27 Assessment & Plan (07/15/2024 4:07 PM EST): Pt previously admitted to [facility] from 03/10/22-03/13/22 for further management with a diagnosis of Acute hypoxemic respiratory failure possibly due to fluid overload/ESRD. Patient received HD and improved. Pt was subsequently readmitted to [facility] from 03/26/22 - 03/27/22 for CHF, hypoxia and ESRD Patient admitted at [facility] from 03/27/22 - 04/07/22. ProBNP elevated >70,000 on 03/27. volume status improved after dyalisis on 03/27. ECHO showed EF 45% . Cardiology consult recommended outpt ischemic work up. [facility] Cardiology called pt on 11/14/23 to schedule new patient appt, they LVM and sent letter out to book. LB She never went to see relationship assoc will refer back Assessment & Plan (10/18/2023 9:34 AM EDT): Pt previously admitted to [facility] from 03/10/22-03/13/22 for further management with a diagnosis of Acute hypoxemic respiratory failure possibly due to fluid overload/ESRD. Patient received HD and improved. Pt was subsequently readmitted to [facility] from 03/26/22 - 03/27/22 for CHF, hypoxia and ESRD Patient admitted at [facility] from 03/27/22 - 04/07/22. ProBNP elevated >70,000 on 03/27. volume status improved after dyalisis on 03/27. ECHO showed EF 45% . Cardiology consult recommended outpt ischemic work up. She never went to see relationship assoc will refer back Assessment & Plan (12/28/2022 10:03 AM EDT): Pt previously admitted to [facility] from 03/10/22-03/13/22 for further management with a diagnosis of Acute hypoxemic respiratory failure possibly due to fluid overload/ESRD. Patient received HD and improved. Pt was subsequently readmitted to [facility] from 03/26/22 - 03/27/22 for CHF, hypoxia and ESRD Patient admitted at [facility] from 03/27/22 - 04/07/22. ProBNP elevated >70,000 on 03/27. volume status improved after dyalisis on 03/27. ECHO showed EF 45% . Cardiology consult recommended outpt ischemic work up. Pt Tells me she finally went to see the Computer Programming Professor . 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 Pt has been evaluated for this at [facility] Vascular surgery. last note on record from [...] Pt has been evaluated for this at [facility] Vascular surgery. last note on record from 01/08/2012 mentioned that this does not offer any major risk and recommended prn f/u Assessment & Plan (12/28/2022 9:50 AM EDT): Pt has a Hx of a 9 mm right renal artery aneurysm seen on most recent CTA on 06/08/2011 but No stenosis. This was done in the ER. Pt has been evaluated for this at [facility] Vascular surgery. last note on record from [...] for a follow up, seen at our [facility] after pt reported 7 days w/o [...] visit today but promised to go to [facility] hospital tomorrow AM. Will [...] Noted Date Diagnosed Date Resolved Date COVID-19 05/09/202206/27/2022 Encounters Date Type Department Care Team Description 09/12/2024 1:00 PM EDT Office Visit [facility] [address] [place] [phone] Heidy Kunz MD Uncontrolled hypertension (Primary Dx); Vaginal itching; Rectal prolapse; Right foot pain 09/12/[address] [address] Kinza Escamilla, RN Care Coordination 09/12/[address] [address] Sammy Reilly MD 09/04/[address] [address] Demi Esquivel RN 09/03/2024 2:30 PM EDT Office Visit [address] [address] Margarita Rob ANP Hospital discharge follow-up (Primary Dx); Primary hypertension; Type 2 diabetes mellitus with chronic kidney disease on chronic dialysis, with long-term current use of insulin ([facility]); Hyperkalemia; Rectal prolapse; End-stage renal disease on hemodialysis ([facility]); Smoker; Uncomplicated opioid dependence ([facility]) 09/03/[address] [address] Sammy Reilly MD Durable Medical Equipment 09/03/[address] [address] Sammy Reilly MD Call Back Request 09/03/2024 Travel 09/01/[address] [address] Saige De La Cruz, OdessaD Durable Medical Equipment 09/01/2024 Telephone [facility] [address] [place] [phone] Lila Fox MA chart prep 08/29/2024 9:45 AM EDT Office Visit [address] [address] Messi Mccollum MD Uncomplicated opioid dependence (CMS/HCC) (Primary Dx) 08/29/2024 Telephone [facility] [address] [place], [place] [address] Jessica Rahman, RN 08/29/2024 Refill [facility] [address] [place], [place] [address] Sammy Reilly MD Chronic obstructive pulmonary disease, unspecified COPD type (CMS/HCC) 08/29/2024 Telephone [facility] [address] [place], [place] [address] Sammy Reilly MD 08/29/2024 Travel 08/15/2024 Telephone [facility] [address] [place], [place] [address] Sammy Reilly MD FYI 08/13/2024 Telephone [facility] [address] [place], [place] [address] Sammy Reilly MD DME from L[employer] 08/12/2024 Telephone [facility] [address], [place] [address] Sammy Reilly MD DME from L[employer] 08/11/2024 Refill [facility] [address] [place], [place] [address] Sammy Reilly MD 08/08/2024 Telephone [facility] [address] [place], [place] [address] Sammy Reilly MD Call Back Request 08/05/2024 Refill [facility] [address] [place], [place] [address] Sammy Reilly MD Chronic obstructive pulmonary disease, unspecified COPD type (CMS/HCC) 08/04/2024 Refill [facility] [address] [place], [place] [address] Jessica Rahman, RN Uncomplicated opioid dependence (CMS/HCC) 07/31/2024 Refill [facility] [address] [place], [place] [address] Geena Umana CNM 07/31/2024 [facility]ill [facility] [address] [facility] [place] [address] Sebastián Lora MD Chronic obstructive pulmonary disease, unspecified COPD type ([facility]/HCC) 07/28/2024 Orders Only [facility] [address] [place] [address] Willow Betancourt MD 07/25/2024 Telephone [facility] [address] [place] [address] Sammy Reilly MD 07/22/2024 Refill [facility] [place] [address] Sammy Reilly MD Chronic midline low back pain without sciatica 07/18/2024 Refill [facility] [address] [facility] [place] [address] Sammy Reilly MD 07/15/2024 3:00 PM EST Telemedicine [facility] [address] [facility] [place] [address] Sammy Reilly MD Rectal prolapse (Primary Dx); Hospital discharge follow-up; Renal artery aneurysm ([facility]); Chronic diastolic congestive heart failure ([facility]/HCC); Constipation, unspecified constipation type; Renal cyst, left; End-stage renal disease on hemodialysis ([facility]); Type 2 diabetes mellitus with chronic kidney disease on chronic dialysis, with long-term current use of insulin ([facility]); Chronic pain of both knees 07/15/2024 Travel 07/14/2024 Telephone [facility] [address] Sammy Reilly MD DME L[employer] 07/11/2024 1:00 PM EST Telemedicine [facility] [place] [address] Messi Mccollum MD Uncomplicated opioid dependence ([facility]/HCC) 07/11/2024 Telephone [facility] [facility] [place] [address] Sammy Reilly MD Chart Prep Tele 07/11/2024 Travel 07/10/2024 Telephone [facility] [address] [place] [address] Sammy Reilly MD Appointment Confirmation 07/10/2024 Telephone [facility] [address] [place] [address] Sammy Reilly MD Appointment Request 07/09/2024 Telephone [facility] [address] [place] [address] Sammy Reilly MD 07/08/2024 Telephone [facility] [address] [place] [address] Sammy Reilly MD Appointment Request 07/08/2024 Refill [facility] [address] [place] [address] Jessica Rahman, CELIO Uncomplicated opioid dependence ([facility]/HCC) 06/27/2024 Refill [facility] [address] [place] [address] Sammy Reilly MD Tobacco use disorder 06/26/2024 Telephone [facility] [address] [place] [address] Sammy Reilly MD 06/23/2024 Refill [facility] [address] [place] [address] Humberto Joseph RN Uncomplicated opioid dependence ([facility]/HCC) 06/20/2024 10:00 AM EST Office Visit [facility] [place] [address] Messi Mccollum MD Uncomplicated opioid dependence ([facility]) (Primary Dx) 06/20/2024 Travel 06/18/2024 Refill [facility] [address] [place] [address] Hattie Gonzales MD Hypertension secondary to other renal disorders 06/17/2024 Telephone [facility] [address] [place] [address] Jessica Rahman, CELIO from Last 3 Months Immunizations Name Administration [...] 1:00 PM EDT Office Visit [facility] [address] [place] [address] Messi Mccollum MD [address] [place] [address] 10/14/2024 2:15 PM EDT Telemedicine [facility] [address] [place] [address] Sammy Reilly MD [address] [place] [address] Health Maintenance Due Date Last Done Comments [...] 05/17/2021, Additional history exists Mammogram 11/06/2024 11/07/2023, 1111/2018, 01/30/2018 DTaP/Tdap/Td Vaccines (2 - Td or [...] Routine 09/12/2024 2:07 PM EDT Vaginal itching POCT GLYCATED HEMOGLOBIN, TOTAL Routine 09/03/2024 2:47 PM EDT Type 2 diabetes mellitus with chronic kidney disease on chronic dialysis, with long-term current use of insulin ([facility]) POCT GLUCOSE Routine 09/03/2024 2:47 PM EDT Type 2 diabetes mellitus with chronic kidney disease on chronic dialysis, with long-term current use of insulin ([facility]) THINPREP IMAGING PAP AND HPV MRNA E6/E7 [...] Recently Relevant to Health Maintenance Results * Bacterial Vaginosis Panel (09/12/2024 2:07 PM EDT) TRICHOMONAS VAGINALIS DETECTION BY PCR NOT DETECTED Not Detect [facility] BACTERIAL VAGINOSIS DETECTION BY PCR NEGATIVE Negative [facility] Comment:The BV organism targ ets of [...] DETECTION BY PCR NOT DETECTED Not Detect [facility] July glab krusei PCR NOT DETECTED Not Detect [facility] Swab Vaginal structure / Unknown 09/12/2024 2:07 PM EDT 09/12/2024 4:30 PM EDT us Heidy Vargas MD LAB MICROBIOLOGY - NERAL ORDERABLES Final Result [facility] [address] [place] [phone] * POCT HGB A1C (09/03/2024 2:47 PM EDT) Hemoglobin A1C 5.8 4.0 - 6.0 % QC Media Lot # [id number] Lot# Expiration Date [id number] Blood 09/03/2024 2:47 PM EDT us Margarita LUNDY POINT OF CARE TEST ENTER/EDIT OR DERABLES Final Result * POCT Glucose (09/03/2024 2:47 PM EDT) Glucose Blood, POC 167 60 - 200 mg/dL QC Media Lot # [id number] Lot# Expiration Date 268 Blood Capillary blood specimen / Unknown 09/03/2024 2:47 PM EDT [facility] POINT OF CARE TEST ENTER/EDIT OR DERABLES Final Result * ThinPrep Imaging Pap and HPV mRNA E6/E7 (12/05/2023 9:53 AM EDT) Pathologist [facility] HPV nRNA E6/E7 Not Detected Not Detected [facility] Comment:Methodology: Transcr iption-Mediated AmplificationThis assay detects E6/E7 viral messenger RNA (mRNA) from 14high-risk HPV types (16,18,31,33,35,39,45,51,52,56,58,59,66,68).Cervical sources are required for HPV testing.If a vaginal source from a patient who has had atotal hysterectomy with removal of cervix wassubmitted, please contact the testing laboratoryfor alternative testing options.For additional information, please refer tohttp://education.Newsela/faq/XBU576e9(This link if provided for information/educational purposes only.)THIS TEST WAS PERFORMED AT:[facility] [place] [phone] JUNE MD SOURCE: SEE NOTE [facility] Comment:None given Report Status: [facility] Clinical Information: SEE NOTE [facility] Comment:None given LMP: SEE NOTE [facility] Comment:NONE GIVEN Prev. PAP: SEE NOTE [facility] Comment:NONE GIVEN Prev. BX: SEE NOTE [facility] Comment:NONE GIVEN Statement Of Adequacy: SEE NOTE [facility] Comment:Satisfactory for amandeep luation.Endocervical/transformation zone component absent. General Categorization: [facility] Interpretation/Result: SEE NOTE [facility] Comment:Cytology Results: Ne gative for intraepitheliallesion or malignancy. Cytology Comment SEE NOTE [facility] Comment:This Pap test has be en evaluated with computerassisted technology. Type Soldering Machine Tender: SEE NOTE [facility] Comment:DMM, CT(ASCP)CT scre ening location: [address] [address] Review Type Soldering Machine Tender: NMJenn [facility] Pathologist TNP [facility] PAP Infection [facility] See Note SEE NOTE [facility] Comment:EXPLANATORY NOTE:The Pap is a screening test for cervical cancer. It isnot a diagnostic test and is subject to false negativeand false positive results. It is most reliable when asatisfactory sample, regularly obtained, is submittedwith relevant clinical findings and history, and whenthe Pap result is evaluated along with historic andcurrent clinical information. 12/05/2023 9:53 AM EDT 12/05/2023 4:42 PM EDT Narrative [facility] - 12/12/2023 5:23 PM EDT SEE SCANNED RESULTS IN EMR us Geena Umana CNM LAB PATHOLOGY ORDERABLES Final Result [facility] [address] [place] [address] [phone] * BI Mammogram Screening Tomosynthesis Bilateral (11/07/2023 2:55 PM EDT) Anatomical Region Laterality Modality Breast Bilateral Mammography 11/07/2023 2:55 PM EDT Narrative 12/05/2023 11:54 AM EDT ? [facility] ? [address] ?[place] [address] ? Mammography Report ? Signed ? Patient: Muller, M ?MR#: [id number] ? : 1955 ?Acct:[id number] ? Age/Sex: 68 / F ?ADM Date: 06/19/24 ? Loc: HO.MAMMO ? Attending Dr: Sammy Vicente MD ? Ordering Physician: Sammy Vicente MD ?Resu ?? lts: 1Negative ? Date of Service: 11/07/23 ?Follow Up: 1 Year From Orig ?? inal Mammogram ? Procedure(s): MM tomosynthesis screening BI ?? Accession Number(s): [id number] ? cc: Sammy Vicente MD ? EXAMINATION: [...] 1150 ? DD/ 1455 ? TD/TT: ? Weapons Officer: ? Procedure Note Donheatherinterpreter, Image - 12/05/2023 Harish [facility] [address] [place] [address] Mammography Report Signed Patient: Cruz Muller MMR#: [id number] : 6Acct:[id number] Age/Sex: 68 / FADM Date: 11/07/23 Loc: HO.MAMMO Attending Dr: Sammy Vicente MD Ordering Physician: Sammy Vicente MDResu lts: 1Negative Date of Service: 11/07/23Follow Up: 1 Year From Orig inal Mammogram Procedure(s): MM tomosynthesis screening BI Accession Number(s): [id number] cc: Sammy Vicente MD EXAMINATION: MM SCREENING [...] in OV> 12/05/23 1150 DD/ 1455 TD/TT: Weapons Officer: Sammy Whitehead MD IMG BI PROCEDURES Fin [...] ?? Chaitanya TAVAREZ et al. CARLOS. 2013;310(19): 2463-8841 ?? (http://education.tenXer.Soicos/faq/LWL875) Non-HDL Cholesterol 175(H) <130 mg/dL (calc) [facility] [...] Whitehead MD LAB BLOOD ORDERABLES Final Result [facility] [address] from Last 3 Months or Most Recently Relevant to Health Maintenance Insurance [facility] [employer]-WAY OPTIONS (O D-SNP) [place] [id number] Care Teams Tailor Fitter Relationship Specialty Start Date End Date Sammy Reilly MD [address] [place] [phone] PCP - General Internal Medicine 12/23/13 Rijuven 04/08/22 Tj Larose MD Supervisor Road Administrator Nephrology 04/10/24
--- OUTSIDE RECORDS SUMMARY | 2024-09-15 17:14 | XMS_ITS | Encounter Summary ---
Author Organization [employer] Address [address] [place] [address] Care Team Providers Care Car Shifter Name Role Phone Sammy Reilly MD Primary Care Provide r Reason for Visit * Reason Comments Med Refill Encounter Details Date Type Department Care Team (Late st Contact Info) Description 11/21/2023 Refill [facility] [address] [place], [place] [phone] Sammy Reilly MD [address] [place] [address] Chronic obstructive pulmonary disease, unspecified COPD type [...] 1:00 PM EDT Office Visit [facility] [address] [place] [phone] Messi Mccollum MD [address] [place] [address] 10/14/2024 2:15 PM EDT Telemedicine [facility] [address] [place] [phone] Sammy Reilly MD [address] [place] [phone] documented as of this encounter Goals Goal [...] documented as of this encounter Care Teams Car Shifter Relationship Specialty Start Date End Date Sammy Reilly MD [address] [place] [phone] PCP - General Internal Medicine 12/23/13 [employer] 04/08/22 Tj Larose MD Manufacturing Finance Manager Nephrology 04/10/24 documented as of this encounter
--- OUTSIDE RECORDS SUMMARY | 2024-09-15 17:14 | XMS_ITS | Encounter Summary ---
Author Organization [employer] Address [address] [facility] [facility] [address] 7t [place] [address] Care Team Providers Care Corporate Quality Engineer Name Role Phone Sammy Reilly MD Primary Care Provide r Reason for Visit * Reason Comments Med Refill Encounter Details Date Type Department Care Team ([facility] st Contact Info) Description 04/20/2023 Refill [facility] [address] [place] [address] Name, MD Tye [address] [place] [address] Hypertension secondary to other renal disorders Social [...] Office Visit [facility] [address] [place] [address] [phone] Messi Mccollum MD [address] [place] [phone] 10/14/2024 2:15 PM EDT Telemedicine [facility] [address] [place] [phone] Sammy Reilly MD [address] [place] [phone] documented as of this encounter Goals Goal [...] documented as of this encounter Care Teams Corporate Quality Engineer Relationship Specialty Start Date End Date Sammy Reilly MD [address] [place] [address] [phone] PCP - General Internal Medicine 12/23/13 [employer] 04/08/22 Tj Larose MD Desktop Publishing Specialist Nephrology 04/10/24 documented as of this encounter
--- OUTSIDE RECORDS SUMMARY | 2024-09-15 17:14 | XMS_ITS | Encounter Summary ---
Author Organization [facility] Address [address] [facility] 7t [place] [address] Care Team Providers Care Glass Silverer Name Role Phone Sammy Reilly MD Primary Care Provide r Reason for Visit * Reason Comments Med Refill Encounter Details Date Type Department Care Team ([facility] Contact Info) Description 06/20/2022 Refill [facility] [address] [place] [address] Sammy Reilly MD 230 [place] [address] Primary hypertension (Primary Dx); Uncomplicated opioid dependence [...] Upcoming Encounters Date Type Department Care Team ([facility] Contact Info) Description 09/26/2024 1:00 PM EDT Office Visit [facility] [address] [place] [address] [phone] Messi Mccollum MD [address] [place] [address] 10/14/2024 2:15 PM EDT Telemedicine [facility] [address] [place], [place] [phone] Sammy Reilly MD [address] [place], [place] [phone] documented as of this encounter Visit Diagnoses Diagnosis Primary hypertension- Primary Unspecified essential hypertension Uncomplicated opioid dependence (CMS/HCC) documented in this encounter Care Teams Glass Silverer Relationship Specialty Start Date End Date Sammy Reilly MD [address] [place] [address] [phone] PCP - General Internal Medicine 12/23/13 [employer] 04/08/22 Tj Larose MD Tuber Machine Operator Nephrology 04/10/24 documented as of this encounter
--- OUTSIDE RECORDS SUMMARY | 2024-09-15 17:14 | XMS_ITS | Encounter Summary ---
Author Organization [facility] Address [address] [place] [phone] Phone Care Team Providers Care Embroiderer Name Role Phone Unavailable Primary Care Provider Unavailabl e Encounter Details Date Type Department Care Team ([facility] st Contact Info) Description 09/09/2024 Treatment [facility]. [address] [phone] Tj Larose MD [address] [phone] End stage renal disease; Dependence [...] care for end stage renal disease. Attending Roof Fixer: TJ LAROSE MD Dialysis Location: [facility] Schedule: Shift: 2 OVERVIEW Patient is stable. COMMENTS: Note in dialysis strategic planning manager ADEQUACY ASSESSMENT Kt/V, Natural Log 1.57 [...]
--- OUTSIDE RECORDS SUMMARY | 2024-09-15 17:14 | XMS_ITS | Encounter Summary ---
Author Organization [employer] Address [address] [facility] [address] 7t [place] [address] Care Team Providers Care Compounding Technician Name Role Phone Sammy Reilly MD Primary Care Provide r Reason for Visit * Reason Onset Date Comments Care Coordination 09/12/2024 Encounter Details Date Type Department Care Team (Late st Contact Info) Description 09/12/2024 Telephone [facility] [address] [place] [address] Kinza Escamilla, CELIO Care Coordination Social History [...] high BP. Patient was walked over to [facility] by daughter. As patient was being brought [...] PM EDT Office Visit [facility] [address] [place] [address] [phone] Messi Mccollum MD [address] [place] [address] 10/14/2024 2:15 PM EDT Telemedicine [facility] [address] [place], [place] [phone] Sammy Reilly MD [address] [place], [place] [phone] documented as of this encounter Goals Goal [...] documented as of this encounter Care Teams Compounding Technician Relationship Specialty Start Date End Date Sammy Reilly MD [address] [place] [phone] PCP - General Internal Medicine 12/23/13 [employer] 04/08/22 Tj Larose MD Ultrasonic Seaming Machine Operator Nephrology 04/10/24 documented as of this encounter
--- OUTSIDE RECORDS SUMMARY | 2024-09-15 17:15 | XMS_ITS | Clinical Summary ---
Author Organization [facility] Address [address] [place] [phone] Care Team Providers Care Truck Loader And Unloader Name Role Phone Sammy Strickland MD Primary [...] 12/20/2023 COVID-19 Vaccine (2023- season) 2024 Insurance [facility] Advance Directives * Full Code (Latest Code Status on File) Date Activated Date Inactivated Comments 03/27/2022 6:52 AM Care Teams Truck Loader And Unloader Relationship Specialty Start Date End Date Sammy Strickland MD [address] [place] [address] [place] [address] PCP - General 03/27/22
--- OUTSIDE RECORDS SUMMARY | 2024-09-15 17:15 | XMS_ITS | Clinical Summary ---
Author Organization [facility] Address [address] [phone] Phone Care Team Providers Care Rate Analyst Name Role Phone Unavailable Primary Care Provider [...] Treatment [facility] [address] [phone] Tj Larose MD End stage renal disease; Dependence on renal dialysis 09/06/2024 Treatment [facility] [address] [phone] Tj Larose MD End stage renal disease; Dependence on renal dialysis 08/30/2024 Treatment [facility] [address] [phone] Tj Larose MD End stage renal disease; Dependence on renal dialysis 08/19/2024 Treatment [facility] [address] [phone] Tj Larose MD End stage renal disease; Dependence on renal dialysis 08/14/2024 Treatment [facility] [address] [phone] Tj Larose MD End stage renal disease; Dependence on renal dialysis 08/05/2024 Treatment [facility] [address] [phone] Tj Larose MD End stage renal disease; Dependence on renal dialysis 07/31/2024 Treatment [facility] [address] [phone] Tj Larose MD End stage renal disease; Dependence on renal dialysis 07/26/2024 Treatment [facility] [address] [phone] Tj Larose MD End stage renal disease; Dependence on renal dialysis 07/24/2024 Orders Only [facility] [address] [phone] Tj Larose MD 07/12/2024 Treatment [facility] [address] [phone] Tj Larose MD 07/05/2024 Treatment [facility] [address] [phone] Tj Larose MD 07/01/2024 Treatment [facility] [address] [phone] Clive Lange MD 06/24/2024 Treatment [facility] [address] [phone] Tj Larose MD 06/19/2024 Treatment [facility] [address] [phone] Tj Larose MD from Last 3 Months [...] EDT us Tj Larose MD LAB HISTORICA [id number] RESULTS Final Result [facility] [address] [place] [address] * (ABNORMAL) Hemoglobin (09/06/2024 3:00 AM EDT) Only the most recent of2 resultswithin the time period is included. Pathologist [facility] Hgb 10.6(L) 11.2 - 15.7 g/dL [facility] Hemoglobin x 3 31.8(L) 33.6 - 47.1 g/dL [facility] 09/06/2024 3:00 AM EDT 09/09/2024 12:57 PM EDT us Tj Larose MD LAB BLOOD ORDERABLES Final Result Performing Organization Address [facility]/ZIP Co de Phone Number [facility] [address] [place] [address] * LIH (08/21/2024 3:00 AM EDT) Only the most recent of2 resultswithin the time period is included. Pathologist [facility] Lipemia Normal Normal [facility] Icterus Normal Normal [facility] Hemolysis Normal Normal [facility] 08/21/2024 3:00 AM EDT 08/23/2024 1:28 PM EDT us Tj Larose MD LAB HISTORICA [id number] RESULTS Final Result Performing Organization Address City/[facility]/ZIP Co de Phone Number [facility] [address] [place] [address] * (ABNORMAL) Kt/V Natural Log, URR (08/21/2024 [...] PM EDT Tj Larose MD LAB HISTORICA [id number] RESULTS Final Result Performing Organization Address [facility] de Phone Number [facility] [address] [place] [address] * Calcium Phosphorus Product, Adjusted (08/21/2024 3:00 [...] PM EDT Tj Larose MD LAB HISTORICA [id number] RESULTS Final Result Performing Organization Address [facility] de Phone Number [facility] [address] [place] [address] * Hepatitis B Surface Ag w/Reflex Confirmation (08/21/2024 3:00 AM EDT) Only the most recent of2 resultswithin the time period is included. Hep B Surface Antigen Negative Negative [facility] 08/21/2024 3:00 AM EDT 08/23/2024 1:28 PM EDT Tj Larose MD LAB BLOOD ORDERABLES Final Result Performing Organization Address City/[facility] de Phone Number [facility] [address] [place] [address] * (ABNORMAL) TSAT (08/21/2024 3:00 AM EDT) Only the most recent of2 resultswithin the time period is included. [facility] Iron 54 50 - 170 ug/dL [facility] Transferrin 148(L) 250 - 380 mg/dL [facility] TIBC 207(L) 211 - 406 ug/dL [facility] Iron Saturation (TSat) 26 22 - 52 % [facility] 08/21/2024 3:00 AM EDT 08/23/2024 1:28 PM EDT Tj Larose MD LAB BLOOD ORDERABLES Final Result Performing Organization Address [facility] de Phone Number [facility] [address] [place] [address] * (ABNORMAL) CBC and Differential (08/21/2024 3:00 AM EDT) Only the most recent of2 resultswithin the time period is included. [facility] DIFFERENTIAL MANUAL, 2 Not Indicated [facility] White [...] BLOOD ORDERABLES Final Result Performing Organization Address City/[facility]/ZIP Co de Phone Number [facility] [address] [place] [address] * ALT (08/21/2024 3:00 AM EDT) Only the most recent of2 resultswithin the time period is included. ALT (SGPT) 14 10 - 49 U/L [facility] 08/21/2024 3:00 AM EDT 08/23/2024 1:28 PM EDT Tj Larose MD LAB BLOOD ORDERABLES Final Result Performing Organization Address [facility] Co de Phone Number [facility] [address] [place] [address] * AST (08/21/2024 3:00 AM EDT) Only the most recent of2 resultswithin the time period is included. AST (SGOT) 24 <34 U/L [facility] 08/21/2024 3:00 AM EDT 08/23/2024 1:28 PM EDT us Tj Larose MD LAB BLOOD ORDERABLES Final Result Performing Organization Address City/[facility] Co de Phone Number [facility] [address] [place] [address] * Protein, total (08/21/2024 3:00 AM EDT) Only the most recent of2 resultswithin the time period is included. Total Protein 7.2 6.4 - 8.9 g/dL [facility] 08/21/2024 3:00 AM EDT 08/23/2024 1:28 PM EDT Tj Larose MD LAB BLOOD ORDERABLES Final Result Performing Organization Address [facility] Co de Phone Number [facility] [address] [place] [address] * (ABNORMAL) Alkaline phosphatase (08/21/2024 3:00 AM EDT) Only the most recent of2 resultswithin the time period is included. Alkaline Phosphatase 144(H) 46 - 116 U/L [facility] 08/21/2024 3:00 AM EDT 08/23/2024 1:28 PM EDT Tj Larose MD LAB BLOOD ORDERABLES Final Result Performing Organization Address [facility] de Phone Number [facility] [address] [place] [address] * (ABNORMAL) PTH, Intact (08/21/2024 3:00 AM [...] Final Result Performing Organization Address [facility] Co de Phone Number [facility] [address] [place] [address] * (ABNORMAL) Magnesium (08/21/2024 3:00 AM EDT) Only the most recent of2 resultswithin the time period is included. Magnesium 2.9(H) 1.9 - 2.7 mg/dL [facility] 08/21/2024 3:00 AM EDT 08/23/2024 1:28 PM EDT us Tj Larose MD LAB BLOOD ORDERABLES Final Result Performing Organization Address [facility] de Phone Number [facility] [address] [place] [address] * (ABNORMAL) Lactate dehydrogenase (08/21/2024 3:00 AM EDT) Only the most recent of2 resultswithin the time period is included. LDH 316(H) 120 - 246 U/L [facility] 08/21/2024 3:00 AM EDT 08/23/2024 1:28 PM EDT us Tj Larose MD LAB BLOOD ORDERABLES Final Result Performing Organization Address [facility] de Phone Number [facility] [address] [place] [address] * Hemoglobin A1c (08/21/2024 3:00 AM EDT) [...] BLOOD ORDERABLES Final Result Performing Organization Address [facility] de Phone Number [facility] [address] [place] [address] * (ABNORMAL) Glucose, random (08/21/2024 3:00 AM EDT) Only the most recent of2 resultswithin the time period is included. Glucose 121(H) 74 - 109 mg/dL [facility] 08/21/2024 3:00 AM EDT 08/23/2024 1:28 PM EDT Tj Larose MD LAB BLOOD ORDERABLES Final Result Performing Organization Address [facility] de Phone Number [facility] [address] [place] [address] * (ABNORMAL) Ferritin (08/21/2024 3:00 AM EDT) Only the most recent of2 resultswithin the time period is included. Ferritin 1,524(H) 10 - 291 ng/mL [facility] 08/21/2024 3:00 AM EDT 08/23/2024 1:28 PM EDT Tj Larose MD LAB BLOOD ORDERABLES Final Result Performing Organization Address [facility] de Phone Number [facility] [address] [place] [address] * (ABNORMAL) Creatinine, serum (08/21/2024 3:00 AM EDT) Only the most recent of2 resultswithin the time period is included. Creatinine 6.45(H) 0.55 - 1.02 mg/dL [facility] 08/21/2024 3:00 AM EDT 08/23/2024 1:28 PM EDT us Tj Larose MD LAB BLOOD ORDERABLES Final Result Performing Organization Address [facility] de Phone Number [facility] [address] [place] [address] * (ABNORMAL) Bilirubin, total (08/21/2024 3:00 AM EDT) Only the most recent of2 resultswithin the time period is included. Total Bilirubin <0.2(L) 0.3 - 1.2 mg/dL [facility] 08/21/2024 3:00 AM EDT 08/23/2024 1:28 PM EDT Tj Larose MD LAB BLOOD ORDERABLES Final Result [facility] [address] [place] [address] * (ABNORMAL) Lipid panel (08/21/2024 3:00 AM [...] BLOOD ORDERABLES Final Result Performing Organization Address City/[facility] Co de Phone Number [facility] [address] [place] [address] * (ABNORMAL) Electrolyte panel (08/21/2024 3:00 AM [...] Final Result Performing Organization Address [facility] de Phone Number [facility] [address] [place] [address] from Last 3 Months Insurance [facility] ([id number]) [place] [id number] [facility] ([id number]) [place] [phone]
--- OUTSIDE RECORDS SUMMARY | 2024-09-15 17:15 | XMS_ITS | Encounter Summary ---
Author Organization [employer] Address [address] 7[address] [place] [address] Care Team Providers Care District Manager Primary Care Sales Name Role Phone Sammy Reilly MD Primary Care Provide r Reason for Visit * Reason Comments Med Refill Encounter Details Date Type Department Care Team ([facility] st Contact Info) Description 10/21/2023 Refill [facility] [address] [place] [address] Sammy Reilly MD [address] [place] [address] Chronic obstructive pulmonary disease, unspecified COPD type [...] Description 09/26/2024 1:00 PM EDT Office Visit [facility] [address] [place] [phone] Messi Mccollum MD [address] [place] [phone] 10/14/2024 2:15 PM EDT Telemedicine [facility] [address] [place] [address] [phone] Sammy Reilly MD [address] [place] [phone] documented as of this encounter Goals Goal [...] documented as of this encounter Care Teams District Manager Primary Care Sales Relationship Specialty Start Date End Date Sammy Reilly MD [address] [place] [address] PCP - General Internal Medicine 12/23/13 [email or web address] 04/08/22 Tj Larose MD Brand Mgr Nephrology 04/10/24 documented as of this encounter
--- OUTSIDE RECORDS SUMMARY | 2024-09-15 17:15 | XMS_ITS | Data Portability ---
Author Organization [facility] Address [address] [place] [address] Care Team Providers Care Boilermaker Apprentice Name Role Phone HIM CCA OTHER [facility] Primary Care Provider Assessment Encounter Date Assessment Date Assessment LastModified by Organization Details LastModified Time 08/21/2022 08/21/2022 As noted, we wer e called to see this patient regarding concerns of nausea. Evaluation in the field was performed by my manager personal colleague, as noted above, I provided real-time [...] Assessment and Plan as documented by the Building Mechanic. Patient given the opportunity to ask questions. Our service contacted for an assessment of: HTN As per above, patient with known HTN (poorly controlled) and ESRD on HD T, TH, Sat. Took her BPs meds and then took her meds. Noted to be high and RN called for a recheck. Per manager personal on the scene, patient took meds within 2 hours. Going for HD tomorrow. asymptomatic and denies CP, SOB, SEAMAN, HANCOCK, change in vision. Feels the same as usual. Impression: HTN and ESRD Plan: Continue to take scheduled meds. Attend HD in AM. Follow up with your Certified Executive Chef in AM for medications adjustments. Discussed red [...] in the field was performed by my manager personal colleague, as noted above, I provided real-time [...] assessment and plan as documented by the manager personal. I provided real-time medical direction for this encounter and was immediately available to provide additional phone-based assistance as needed. History as noted in EMR and by manager personal. I would add / emphasize: Patient seen [...] rapid strep group A, throat 2024 025 [facility], [address] [place] [address], [id number] 5 18:02:58 rapid SARS CoV 2 Ag, QL IA, respiratory specimen [address], [id number] 5 18:01:51 rapid flu (A+B) [address], [id number] 5 18:02:20 streptococc us group A, culture, throat 2024 025 [place] [facility] (Centralized Electronic Ordering - All Locations), Patient Can Go To The Location Of Their Choice, [id number] 5 20:06:06 Referral None recorded. Procedures None recorded. Surgeries None recorded. Imaging None recorded. Medication Orders senna 8.6 mg tablet 2024 025 [facility], [address] [place] [address], [id number], 14:38:58 docusate sodium 100 mg capsule 2024 025 [facility], [address] [place] [address], [id number], 5 17:41:02 diphenhydra mine 25 mg tablet 2021 022 [facility], [address] [place] [address], [id number], 17:13:24 ondansetron 4 mg disintegrat ing tablet 2021 022 [facility], [address] [place] [address], [id number], 17:13:24 Patient TargetsNo targets recorded. Patient InstructionsNo instructions recorded. Reason for Referral None Reported. Results Created Date Observation Date Name Description Value Unit Range Abnormal Flag Note LastModifiedBy Organization Detail LastModifiedTime 08/12/1908/14/2024 BETA STREP GP A CULTU RE beta strep gp A culture Negati ve Refer ence Range : Negat christiano Not Available [facility] ([facility]) [address] [facility], [place], [address], 08/14/2024 20:06:06 08/12/19 25 08/11/2024 rapid flu (A+B) Flu negati ve Not Available Main - [facility] ed [address] [place] [address], [id number] 08/11/2024 16:21:50 08/12/19 25 08/11/2024 rapid strep group A, throa t Strep negati ve Not Available Main - [facility] ed [address] [place] [address], [phone] 08/11/2024 16:21:47 08/12/19 25 08/11/2024 rapid SARS CoV 2 Ag, QL IA, respi rator y speci men rapid SARS CoV 2 Ag, QL IA, respiratory specimen negati ve Not Available Main - [facility] ed [address] [place] [address], [id number] 08/11/2024 16:21:49 Result Notes None recorded. Medical [...] Address Organization Details Last Updated DateTime 4 18747.8 g 18 /min 98.2 [degF] 82 /min 98 % 98 % 154.94 cm 194 mm[Hg] 100 mm[Hg] Not Available [facility] 4 18:13:07 Date Recorded Body height Oxygen saturation Oxygen saturation in Arterial blood by Pulse oximetry Respiratory rate Body temperature Heart rate Body weight Systolic blood pressure Diastolic blood pressure Provider Name and Address Organization Details Last Updated DateTime 5 152.4 cm 93 % 93 % 15 /min 98.8 [degF] 77 /min 45859.6 16 g 181 mm[Hg] 78 mm[Hg] Not Available [facility] 5 16:17:37 Date Recorded Body temperature Heart rate Respiratory rate Oxygen saturation Oxygen saturation in Arterial blood by Pulse oximetry Systolic blood pressure Diastolic blood pressure Provider Name and Address Organization Details Last Updated DateTime 5 98 [degF] 77 /min 14 /min 99 % 99 % 210 mm[Hg] 106 mm[Hg] Not Available [facility] 5 16:57:16 Date Recorded Respiratory rate Body [...] mm[Hg] 154 mm[Hg] 83 mm[Hg] Not Available [facility] 2 18:00:34 Date Recorded Body weight Heart [...] Address Organization Details Last Updated DateTime 3 34060.2 24 g 48 /min 18 /min 96 % 96 % 154.94 cm 97.9 [degF] 16633.2 24 g 48 /min 96 % 96 % 18 /min 97.9 [degF] 154.94 cm 113 mm[Hg] 69 mm[Hg] 113 mm[Hg] 69 mm[Hg] Not Available [facility] 3 17:35:34 Social History None recorded. Functional [...] 2925 Lázaro Tobar MD Main - [facility] [address] [place] [phone] 12/12/2021 18:56:07 02/09/2022 18:42:13 Cough 09973562 R05.1 Acute sherie l bronchitis 876692667 J20.8 4855 Duke Barkley MD Main - [facility] [address] [place] [phone] 03/15/2022 17:06:51 03/21/2022 15:11:00 Nausea 609168868 R11.0 Reports nausea after hemodialys is and [...] 9084 KHLOE BRADLEY MD Main - [facility] [address] [place] [phone] 08/21/2022 16:56:47 08/22/2022 22:48:09 Chronic low back pain [id number] M54.50 back pain has been present for several days but similar to prior episodes according to pt. Nausea 302813827 R11.0 constellat [place] [address] Felisha Rothman MD Main - [facility] [address] [place] [phone] 09/10/2023 18:13:05 09/10/2023 21:09:31 Hypertensive disorder 00647340 I10 68671 Jaxon Romero MD Main - [facility] [address] [place] [phone] 0 08/11/2024 15:53:35 08/11/2024 20:19:42 Sore throat 938429146 J02.9 40384 Ariel Rangel MD Main - [facility] [address] [place] [address] [phone] 0 09/07/2024 16:57:14 09/08/2024 14:48:15 External hemorrhoids 83561550 K64.4 Health Concerns Section Related Observation LastModified [...] (MEDICARE REPLACEMENT/ADV ANTAGE - HMO) Cruz Muller [id number] Ebenezer Muller 08/21/2022 1 [facility] - DOS PRIOR TO 2022 - DUAL ELIGIBLE (MEDICARE REPLACEMENT/ADV ANTAGE - HMO) Cruz Muller [id number] Cruz Sol Muller 09/10/2023 1 [facility] - DOS ON OR AFTER 2022 - DUAL ELIGIBLE - FDC OPTIONS AND ONE CARE (MEDICARE REPLACEMENT/ADV ANTAGE - HMO) Cruz Muller [id number] Cruz Muller 08/11/2024 1 [facility] - DOS ON OR AFTER 2022 - DUAL ELIGIBLE - FDC OPTIONS AND ONE CARE (MEDICARE REPLACEMENT/ADV ANTAGE - HMO) Cruz Muller [id number] Cruz Muller 09/07/2024 1 [facility] - DOS ON OR AFTER 2022 - DUAL ELIGIBLE - FDC OPTIONS AND ONE CARE (MEDICARE REPLACEMENT/ADV ANTAGE - HMO) Cruz Muller [id number] Cruz Muller Notes Date Note Type Note [...] need fluids. Member was dc home from [place] on 03/13/22 where she was treated for CHF and Respiratory Failure on 03/10/22 , is on Dialysis 3 days a week. Pt is 66-year-old female with past medical history of CHF, ESRD on dialysis presents the [facility] with nausea vomiting as well as dyspnea [...] ..................... ..................... ..................... ..................... ..................... ..................... ............... Building Mechanic Note: Community Paramedics Farrah chacko and Janette Stern dispatched to a [facility] for a 67 you c/o nausea and itchiness. Pt was recently discharged from [facility] after resp failure\CHF, and placed on dialysis. Pt also took suboxone 2X a day. She reported that she was unable to get a rx refill. quality control systems manager from pt's PCP called while onscene; requested rx refills for antiemetic, itch relief, more ventolin, and a reduction in stool softener due to loose stool for 5 days. RN spoke w/ pt, scheduled a follow up appt and stated she would contact the pt's WASTE PAPER HAMMERMILL OPERATOR. She denied headache, dizziness, sore throat, fever, cough, CP, abd pain, urinary s/s; no redness, swelling, or hives seen or indicated. [facility] consulted; pt given 4 mg PO ondansetron and 25 mg PO diphenhydramine. Pt eating on scene before EMS departure. Red flags discussed. Need for protective services social worker conveyed to ..................... ..................... ..................... ..................... ..................... ..................... ............... Disposition: Fulfilled Duke Barkley MD [address] [facility],[address], [place], [address], [facility] 03/15/2022 20:09:41 08/21/2022 text/html HPI: 67 yo. Nigerian speaking female, who speaks some Salvadorean, illiterate, reporting having lower back pain and nausea today, stated nausea medication helped little and that her Transportation did not show for Hemodialysis as schedule. Treated for MSSA Bacteremia at [facility] from 08/07-08/18/2022. Stated to feel unwell, [...] Member has 4 days a dialysis at [facility]. Member has appt with PCP 09/12 and is scheduled for dialysis Sunday. ..................... ..................... ..................... ..................... ..................... ..................... ............... CRC Nursing Assessment: Comments: No additional information needed ..................... ..................... ..................... ..................... ..................... ..................... ............... Building Mechanic Note From Jessika Cool: Sent to a call for a pt complaining of low back pain and nausea. SC8 arrives on scene, pt is alert and oriented, airway is patent. Pt's primary language is Nigerian, engineer system administrator line used during assessment. Pt has chronic [...] noted; Extremities: no edema noted; Skin: unremarkable; [facility] consulted, [facility] Cj serves as engineer system administrator during consult. Pt is advised to go to dialysis tomorrow as planned. If symptoms do not improve after dialysis then pt is advised to go to ED for further evaluation/treatment. Red flags discussed. Pt has no further questions. ..................... ..................... ..................... ..................... ..................... ..................... ............... Disposition: Fulfilled KHLOE BRADLEY MD [address] [facility],[address], [place], [phone], [place] [facility] [employer] 08/21/2022 19:00:33 09/10/2023 text/html HPI: triage assistant requesting visit for member with HTN. BP today 184/97. Took BP medication 2 hours ago. Has not rechecked BP after medication. Asymptomatic. Denies CP, SOB, or Dizziness. ..................... ..................... ..................... ..................... ..................... ..................... ............... Building Mechanic Note From J Luis Gomez: Smart[employer] visit for female patient with reported hypertension. Pt presents conscious and alert ambulating in home. Pt had nurse present with her who dispenses her meds. Pt reports she was on the phone with career and guidance counselor earlier in the day and disclosed that [...] her blood pressure is good. Consulted with [facility] Dr. Rothman who advised no acute treatments needed. Ensured patient had phone number [facility] should she want another visit. Patient education provided. Reviewed red flags for ED. ..................... ..................... ..................... ..................... ..................... ..................... ............... Disposition: Fulfilled Felisha Rothman MD [address] [facility],[address], [place], [address], [facility] 09/10/2023 18:21:03 08/11/2024 text/html CRC Nurse Triage [...] s/s and seek emergency treatment if needed. Building Mechanic Organization Information for Tommy Samuel Business Legal Name: [employer] Address: [address] [place] [id number], Supervisor [place]: Mayo Nguyen MD CLIA No.: [id number] Building Mechanic POC Test Results from Tommy Samuel Rapid strep test (16:17:43) Strep: - Rapid influenza antigen (17:33:24) Flu: - Rapid COVID antigen (17:33:25) COVID: - ..................... ..................... ..................... ..................... ..................... ..................... ............... Building Mechanic Note From Tommy Samuel: [facility] makes pt contact a 69 yo F CC of a sore throat. [facility] obtains consent and uploads electronically. [facility] obtains vital signs. PT explains for [...] complain of n/v. No allergies are noted. [facility] contacts [facility] and explains above mentioned. A strep test is obtained and results are negative, a sample is obtained for the lab which will be brought to lab geov[facility]. PT also tests negative for flu and covid. [facility] has no other recommendations at this time. PT advised to still use Tylenol as needed and take her zofran as needed for nausea. [facility] explains [facility], PT could be treated with appropriate anti biotics if needed. In meantime tea with honey if allowed with dialysis could be helpful for sore throats. Chest pain, severe sob, fever not controlled by tylenol would be reasons to be seen in person in an emergency room, otherwise await pending lab results. PT understands. [facility] clear. [facility] Lab Orders: rapid strep group A, throat: Performed Comment: negative rapid SARS CoV 2 Ag, QL IA, respiratory specimen: Performed Comment: negative rapid flu (A+B): Performed Comment: negative streptococcus group A, culture, throat: Performed Comment: To be sent to lab geovanna ..................... ..................... ..................... ..................... ..................... ..................... ............... [facility] Consulted: Jaxon Romero ..................... ..................... ..................... ..................... ..................... ..................... ............... Disposition: Fulfilled Jaxon Romero MD [address] [place] [address],[address], [place], [address], [facility] 08/11/2024 18:00:49 09/07/2024 text/html CRC Nurse Triage [...] ..................... ..................... ..................... ..................... ..................... ..................... ............... Building Mechanic Note From Neptali Hernandez: This visit is [...] ..................... ..................... ..................... ..................... ..................... ..................... ............... [facility] Consulted: Ariel Rangel ..................... ..................... ..................... ..................... ..................... ..................... ............... Disposition: Fulfilled Ariel Rangel MD [address] [place] [address],[address], [place], [phone], [facility] 09/07/2024 19:52:57 OBGyn Episode No OBEpisode recorded.
--- OUTSIDE RECORDS SUMMARY | 2024-09-15 17:15 | XMS_ITS | Clinical Summary ---
Author Organization [address] [facility] Address [address] [place] [address] Phone Care Team Providers Care Assembly Leader Name Role Phone Sammy Vicente MD Primary [...] Date Type Department Care Team ([facility] Contact Info) Description 09/29/2024 2:45 PM EDT Consult Orthopedic Surgery - [place] [phone] [phone] Santhosh Patricia, JESSIE [address] [address] Health Maintenance Due Date Last Done Comments [...] ID:[id number] Group ID:[id number] Type:Not on file Address: [place] [address] [place] [address] Care Teams Assembly Leader Relationship Specialty Start Date End Date Sammy Vicente MD [address] [place] [address] [phone] PCP - General Internal Medicine 08/01/24
--- OUTSIDE RECORDS SUMMARY | 2024-09-15 17:15 | XMS_ITS | Encounter Summary ---
Author Organization [employer] Address [address] [place] [address] Care Team Providers Care Color Stripper Name Role Phone Sammy Reilly MD Primary Care Provide r Reason for Visit * Reason Comments Med Refill Encounter Details Date Type Department Care Team (Late st Contact Info) Description 10/23/2023 Refill [facility] MED & PEDS [address] [place], [place] [phone] Sammy Reilly MD [address] [place] [address] Constipation due to opioid therapy Social History [...] Description 09/26/2024 1:00 PM EDT Office Visit [facility] MEDICINE [address] [place] [address] Messi Mccollum MD [address] [place] [address] 10/14/2024 2:15 PM EDT Telemedicine [facility] [address] [place] [address] [phone] Sammy Reilly MD [address] [place] [address] documented as of this encounter Goals Goal [...] documented as of this encounter Care Teams Color Stripper Relationship Specialty Start Date End Date Sammy Reilly MD [address] [place] [address] PCP - General Internal Medicine 12/23/13 [employer] 04/08/22 Tj Larose MD Procurement Analyst Nephrology 04/10/24 documented as of this encounter
--- OUTSIDE RECORDS SUMMARY | 2024-09-15 17:15 | XMS_ITS | Encounter Summary ---
Author Organization [facility] Address [address] [place] [address] Care Team Providers Care Supervisor Grove Name Role Phone Sammy Strickland MD Primary Care Provider [phone] Encounter Details Date Type Department Care Team [...] on filedocumented in this encounter Care Teams Supervisor Grove Relationship Specialty Start Date End Date Sammy Strickland MD [address] [place] [address] [place] [address] PCP - General 03/27/22 documented as of this encounter
--- OUTSIDE RECORDS SUMMARY | 2024-09-15 17:15 | XMS_ITS | Encounter Summary ---
Author Organization [employer] Address [address] [facility] 7t [place] [address] Care Team Providers Care Display Carver Name Role Phone Sammy Reilly MD Primary Care Provide r Encounter Details Date Type Department Care Team ([facility] st Contact Info) Description 04/07/2024 Orders Only [facility] MED & PEDS [address] [place], [place] [phone] Sebastián Lora MD [address] [place] [address] Social History Tobacco Use Types Packs/Day Years [...] the past 12 months, has t he [employer], gas, oil or water company threatened to [...] Description 09/26/2024 1:00 PM EDT Office Visit [facility] [address] [place] [phone] Messi Mccollum MD [address] [place] [address] 10/14/2024 2:15 PM EDT Telemedicine [facility] [address] [place] [address] Sammy Reilly MD [address] [place] [address] documented as of this encounter Goals Goal [...] documented as of this encounter Care Teams Display Carver Relationship Specialty Start Date End Date Sammy Reilly MD [address] [place] [address] PCP - General Internal Medicine 12/23/13 [employer] 04/08/22 Tj Larose MD [employer] Glazer Nephrology 04/10/24 documented as of this encounter
--- OUTSIDE RECORDS SUMMARY | 2024-09-15 17:15 | XMS_ITS | Encounter Summary ---
Author Organization [employer] Address [address] [facility] [address] [place] [address] Care Team Providers Care Pediatrician Active Practice Name Role Phone Sammy Reilly MD Primary Care Provide r Reason for Visit * Reason Onset Date Comments FYI 08/15/2024 Encounter Details Date Type Department Care Team ([facility] st Contact Info) Description 08/15/2024 Telephone [facility] MEDICINE [address] [place] [address] Sammy Reilly MD [address] [place] [address] FYI Social History Tobacco Use Types Packs/Day [...] - 08/15/2024 4:49 PM EDT TC from [facility] with [facility] reports appeal for expedited continuation of service was denied because ptwill continue to have retirement services until 09/24/24 documented in this encounter Plan of Treatment Upcoming Encounters Date Type Department Care Team (Late st Contact Info) Description 09/26/2024 1:00 PM EDT Office Visit [facility] MED[facility]INE [address] [place] [phone] Messi Mccollum MD [address] [place] [address] 10/14/2024 2:15 PM EDT Telemedicine [facility] [address] [place] [address] [phone] Sammy Reilly MD [address] [place] [address] documented as of this encounter Goals Goal [...] documented as of this encounter Care Teams Pediatrician Active Practice Relationship Specialty Start Date End Date Sammy Reilly MD [address] [place] [address] PCP - General Internal Medicine 12/23/13 [employer] 04/08/22 Tj Larose MD Restaurant Server Nephrology 04/10/24 documented as of this encounter
--- OUTSIDE RECORDS SUMMARY | 2024-09-15 17:15 | XMS_ITS | Encounter Summary ---
Author Organization [employer] Address [address] [place] [address] Care Team Providers Care Checkerer Hand Name Role Phone Sammy Reilly MD Primary Care Provide r Reason for Visit * Reason Comments Med Refill Encounter Details Date Type Department Care Team ([facility] st Contact Info) Description 07/31/2024 Refill [facility] MEDICINE [address] [place] [address] Geena Umana CNM [address] [place] [address] Social History Tobacco Use Types Packs/Day Years [...] the past 12 months, has t he [employer], gas, oil or water [employer] threatened to shut off services in your [...] Description 09/26/2024 1:00 PM EDT Office Visit [facility] MEDICINE [address] [place] [phone] Messi Mccollum MD [address] [place] [address] 10/14/2024 2:15 PM EDT Telemedicine [facility] [address] [place] [address] Sammy Reilly MD [address] [place] [address] [phone] documented as of this encounter Goals Goal [...] documented as of this encounter Care Teams Checkerer Hand Relationship Specialty Start Date End Date Sammy Reilly MD [address] [place] [address] PCP - General Internal Medicine 12/23/13 [employer] 04/08/22 Tj Larose MD Chemical Waste Management Technician Nephrology 04/10/24 documented as of this encounter
--- OUTSIDE RECORDS SUMMARY | 2024-09-15 17:15 | XMS_ITS | Encounter Summary ---
Author Organization [employer] Address [address] 7[address] [place] [address] Care Team Providers Care Supervisor Industrial Garment Name Role Phone Sammy Reilly MD Primary Care Provide r Reason for Visit * Reason Comments Med Refill Encounter Details Date Type Department Care Team (Late st Contact Info) Description 06/16/2024 Refill [facility] [address] [place] [address] Messi Mccollum MD 230 [place] [address] Uncomplicated opioid dependence (CMS/HCC) Social History Tobacco [...] the past 12 months, has t he [employer] gas, oil or water company threatened to [...] 1:00 PM EDT Office Visit [facility] [address] [place] [phone] Messi Mccollum MD [address] [place] [address] 10/14/2024 2:15 PM EDT Telemedicine [facility] [address] [place] [address] Sammy Reilly MD [address] [place] [address] documented as of this encounter Goals Goal [...] as of this encounter Care Teams Supervisor Industrial Garment Relationship Specialty Start Date End Date Sammy Reilly MD [address] [place] [address] PCP - General Internal Medicine 12/23/13 [employer] 04/08/22 Tj Larose MD Supervisor Metal Fabricating Nephrology 04/10/24 documented as of this encounter
--- OUTSIDE RECORDS SUMMARY | 2024-09-15 17:15 | XMS_ITS | Encounter Summary ---
Author Organization [facility] Address [address] [facility] 7t [place] [address] Care Team Providers Care Library Technician Name Role Phone Sammy Reilly MD Primary Care Provide r Reason for Visit * Reason Comments Med Refill Encounter Details Date Type Department Care Team ([facility] st Contact Info) Description 11/29/2022 Refill [facility] MED[facility]INE [address] [place] [address] Messi Mccollum MD [address] [place] [address] Tobacco use disorder Social History Tobacco Use [...] 1:00 PM EDT Office Visit [facility] MEDICINE [address] [place] [address] [phone] Messi Mccollum MD [address] [place] [address] 10/14/2024 2:15 PM EDT Telemedicine [facility] MED[facility]INE [address] [place] [address] [phone] Sammy Reilly MD [address] [place], [place] [phone] documented as of this encounter Goals Goal [...] documented as of this encounter Care Teams Library Technician Relationship Specialty Start Date End Date Sammy Reilly MD [address] [place] [address] PCP - General Internal Medicine 12/23/13 [employer] 04/08/22 Tj Larose MD Meters Superintendent Nephrology 04/10/24 documented as of this encounter
--- OUTSIDE RECORDS SUMMARY | 2024-09-15 17:15 | XMS_ITS | Encounter Summary ---
Author Organization [employer] Address [address] 7t [place] [address] Care Team Providers Care Truck Rental Clerk Name Role Phone Sammy Reilly MD Primary Care Provide r Reason for Visit * Reason Onset Date Comments Appointment Request 05/24/2023 Encounter Details Date Type Department Care Team ([facility] st Contact Info) Description 05/24/2023 Telephone [facility] MEDICINE 230 [place] [address] aSmmy Reilly MD 230 [place] [address] Appointment Request Social History Tobacco Use Types [...] 05/24/2023 11:25 AM EST Tc from patients director of medicare calling to request a follow appt with the patients PCP there is no concerns as of right now documented in this encounter Plan of Treatment Upcoming Encounters Date Type Department Care Team (Late st Contact Info) Description 09/26/2024 1:00 PM EDT Office Visit [facility] MEDICINE [address] [place] [phone] Messi Mccollum MD [address] [place] [phone] 10/14/2024 2:15 PM EDT Telemedicine [facility] [address] [place] [address] Sammy Reilly MD [address] [place] [phone] documented as of this encounter Goals Goal [...] documented as of this encounter Care Teams Truck Rental Clerk Relationship Specialty Start Date End Date Sammy Reilly MD [address] [place] [phone] PCP - General Internal Medicine 12/23/13 [employer] 04/08/22 Tj Larose MD Ton Container Filler Nephrology 04/10/24 documented as of this encounter
--- OUTSIDE RECORDS SUMMARY | 2024-09-15 17:15 | XMS_ITS | Encounter Summary ---
Author Organization [employer] Address [address] 7t [place] [address] Care Team Providers Care Manager Chemical Name Role Phone Sammy Reilly MD Primary Care Provide r Reason for Visit * Reason Onset Date Comments PA 06/10/2024 Encounter Details Date Type Department Care Team ([facility] st Contact Info) Description 06/10/2024 Telephone [facility] MED[facility]INE 230 [place] [address] Sammy Reilly MD 230 [place] [address] PA Social History Tobacco Use Types Packs/Day [...] Description 09/26/2024 1:00 PM EDT Office Visit [facility] [address] [place] [address] [phone] Messi Mccollum MD [address] [place] [address] 10/14/2024 2:15 PM EDT Telemedicine [facility] [address] [place] [address] [phone] Sammy Reilly MD [address] [place] [phone] documented as of this encounter Goals [...] as of this encounter Care Teams Manager Chemical Relationship Specialty Start Date End Date Sammy Reilly MD [address] [place] [address] PCP - General Internal Medicine 12/23/13 [employer] 04/08/22 Tj Larose MD Lettuce Cutter Nephrology 04/10/24 documented as of this encounter
--- OUTSIDE RECORDS SUMMARY | 2024-09-15 17:15 | XMS_ITS | Encounter Summary ---
Author Organization [facility] Address [address] [place] [address] Phone Care Team Providers Care Gm Name Role Phone Unavailable Primary Care Provider Unavailabl e Encounter Details Date Type Department Care Team (Late st Contact Info) Description 07/18/2022 Telephone [facility] [address] [place] [address] Concepción Cruz [place] Social History Tobacco [...]
--- OUTSIDE RECORDS SUMMARY | 2024-09-15 17:15 | XMS_ITS | Encounter Summary ---
Author Organization [employer] Address [address] 7t [place] [address] Care Team Providers Care Paediatric Physiotherapist Name Role Phone Sammy Reilly MD Primary Care Provide r Encounter Details Date Type Department Care Team (Late st Contact Info) Description 07/28/2024 Orders Only [facility] [address] [place] [address] ProviderWillow MD Social History Tobacco Use Types [...] Description 09/26/2024 1:00 PM EDT Office Visit [facility] [address] [place] [phone] Messi Mccollum MD [address] [place] [address] 10/14/2024 2:15 PM EDT Telemedicine [facility] [address] [place] [address] [phone] Sammy Reilly MD [address] [place] [address] documented as of this encounter Goals Goal [...] documented as of this encounter Care Teams Paediatric Physiotherapist Relationship Specialty Start Date End Date Sammy Reilly MD [address] [place] [address] PCP - General Internal Medicine 12/23/13 [employer] 04/08/22 Tj Larose MD Die Machine Operator Nephrology 04/10/24 documented as of this encounter
--- OUTSIDE RECORDS SUMMARY | 2024-09-15 17:15 | XMS_ITS | Encounter Summary ---
Author Organization [employer] Address [address] 7t [place] [address] Care Team Providers Care Wrapper Hand Name Role Phone Sammy Reilly MD Primary Care Provide r Reason for Visit * Reason Onset Date Comments Paperwork/Forms 10/22/2023 Encounter Details Date Type Department Care Team ([facility] st Contact Info) Description 10/22/2023 Telephone [facility] MEDICINE 230 [place] [address] Sammy Reilly MD 230 [place] [address] Paperwork/Forms Social History Tobacco Use Types Packs/Day [...] Description 09/26/2024 1:00 PM EDT Office Visit [facility] MED[facility]INE [address] [place] [phone] Messi Mccollum MD [address] [place] [address] 10/14/2024 2:15 PM EDT Telemedicine [facility] [address] [place] [address] [phone] Sammy Reilly MD [address] [place] [address] documented as of this encounter Goals Goal [...] documented as of this encounter Care Teams Wrapper Hand Relationship Specialty Start Date End Date Sammy Reilly MD [address] [place] [phone] PCP - General Internal Medicine 12/23/13 [employer] 04/08/22 Tj Larose MD Writer Producer Nephrology 04/10/24 documented as of this encounter
--- OUTSIDE RECORDS SUMMARY | 2024-09-15 17:15 | XMS_ITS | Encounter Summary ---
Author Organization [employer] Address [address] 7t [place] [address] Care Team Providers Care Manager Of Enterprise Name Role Phone Sammy Reilly MD Primary Care Provide r Reason for Visit * Reason Comments Med Refill Encounter Details Date Type Department Care Team ([facility] st Contact Info) Description 01/16/2024 Refill [facility] MED[facility]INE 230 [place] [address] Sammy Reilly MD 230 [place] [address] Primary hypertension Social History Tobacco Use Types [...] EDT Office Visit [facility] MED[facility]INE [address] [place] [phone] Messi Mccollum MD [address] [place] [address] 10/14/2024 2:15 PM EDT Telemedicine [facility] [address] [place] [phone] Sammy Reilly MD [address] [place] [address] documented as of this encounter Goals Goal [...] as of this encounter Care Teams Manager Of Enterprise Relationship Specialty Start Date End Date Sammy Reilly MD [address] [place] [address] PCP - General Internal Medicine 12/23/13 [employer] 04/08/22 Tj Larose MD Plug Assembler Nephrology 04/10/24 documented as of this encounter
--- OUTSIDE RECORDS SUMMARY | 2024-09-15 17:15 | XMS_ITS | Encounter Summary ---
Author Organization [employer] [facility] Address [address] [facility] 7t [place] [address] Care Team Providers Care Platform Supervisor Name Role Phone Sammy Reilly MD Primary Care Provide r Reason for Visit * Reason Comments Med Refill Encounter Details Date Type Department Care Team ([facility] st Contact Info) Description 11/10/2022 Refill [facility] MED[facility]INE 230 [place] [address] Hattie Gonzales MD 230 [place] [address] Social History Tobacco Use Types Packs/Day Years [...] 09/26/2024 1:00 PM EDT Office Visit [facility] MED[facility]INE [address] [place] [address] [phone] Messi Mccollum MD 230 [place] [address] 10/14/2024 2:15 PM EDT Telemedicine [facility] MED[facility]INE 230 [place], [place] [phone] Sammy Reilly MD 230 [place], [place] [phone] documented as of this encounter Goals Goal [...] documented as of this encounter Care Teams Platform Supervisor Relationship Specialty Start Date End Date Sammy Reilly MD [address] [place] [phone] PCP - General Internal Medicine 12/23/13 [employer] 04/08/22 Tj Larose MD Garment Examiner Nephrology 04/10/24 documented as of this encounter
--- OUTSIDE RECORDS SUMMARY | 2024-09-15 17:15 | XMS_ITS | Encounter Summary ---
Author Organization [employer] Address [address] 7[address] [place] [address] Care Team Providers Care Doughnut Fryer Name Role Phone Sammy Reilly MD Primary Care Provide r Reason for Visit * Reason Comments Med Refill Encounter Details Date Type Department Care Team ([facility] st Contact Info) Description 05/09/2023 Refill [facility] MEDICINE 230 [place] [address] Sammy Reilly MD 230 [place] [address] Social History Tobacco Use Types Packs/Day Years [...] Description 09/26/2024 1:00 PM EDT Office Visit [facility] MED[facility]INE [address] [place] [address] [phone] Messi Mccollum MD [address] [place] [address] 10/14/2024 2:15 PM EDT Telemedicine [facility]INE [address] [place] [phone] Sammy Reilly MD [address] [place] [address] 14302 documented as of this encounter Goals Goal [...] documented as of this encounter Care Teams Doughnut Fryer Relationship Specialty Start Date End Date Sammy Reilly MD [address] [place] [address] [phone] PCP - General Internal Medicine 12/23/13 [employer] 04/08/22 Tj Larose MD Assortment Planner Nephrology 04/10/24 documented as of this encounter
--- OUTSIDE RECORDS SUMMARY | 2024-09-15 17:16 | XMS_ITS | Encounter Summary ---
Author Organization [employer] Address [address] 7t [place] [address] Care Team Providers Care Owner Operator Name Role Phone Sammy Reilly MD Primary Care Provide r Encounter Details Date Type Department Care Team ([facility] st Contact Info) Description 06/26/2024 Telephone [facility] MEDICINE 230 [place], [place] [phone] Sammy Reilly MD 230 [place] [address] Social History Tobacco Use Types Packs/Day Years [...] the past 12 months, has t he [employer], gas, oil or water [employer] threatened to shut off services in your [...] Description 09/26/2024 1:00 PM EDT Office Visit [facility] MEDICINE [address] [place] [phone] Messi Mccollum MD [address] [place] [address] 10/14/2024 2:15 PM EDT Telemedicine [facility] MEDICINE [address] [place] [phone] Sammy Reilly MD [address] [place] [address] documented as of this encounter Goals Goal [...] documented as of this encounter Care Teams Owner Operator Relationship Specialty Start Date End Date Sammy Reilly MD [address] [place] [phone] PCP - General Internal Medicine 12/23/13 [employer] 04/08/22 Tj Larose MD Button Inspector Nephrology 04/10/24 documented as of this encounter
--- OUTSIDE RECORDS SUMMARY | 2024-09-15 17:16 | XMS_ITS | Encounter Summary ---
Author Organization [employer] Address [address] 7[address] [place] [address] Care Team Providers Care [place] Upholsterer Name Role Phone Sammy Reilly MD Primary Care Provide r Reason for Visit * Reason Onset Date Comments Appointment Request 07/08/2024 Encounter Details Date Type Department Care Team ([facility] st Contact Info) Description 07/08/2024 Telephone [facility] MED[facility]INE 230 [place] [address] Sammy Reilly MD 230 [place] [address] Appointment Request Social History Tobacco Use Types [...] 07/08/2024 3:58 PM EST Tc from pt MANAGEMENT SPECIALIST stating that pt is requesting apt with PCP due to not being seen in a while and she wants to get checked up. Pt wants to give info to PCP or nurse. Contact pt MANAGEMENT SPECIALIST at [phone] documented in this encounter Plan of Treatment Upcoming Encounters Date Type Department Care Team (Late st Contact Info) Description 09/26/2024 1:00 PM EDT Office Visit [facility] MEDICINE [address] [place] [phone] Messi Mccollum MD [address] [place] [address] 476[address] 10/14/2024 2:15 PM EDT Telemedicine [facility] MEDICINE [address] [place] [address] Sammy Reilly MD 230 [place] [address] documented as of this encounter Goals Goal [...] documented as of this encounter Care Teams [place] Upholsterer Relationship Specialty Start Date End Date Sammy Reilly MD 230 [place] [address] PCP - General Internal Medicine 12/23/13 [email or web address] 04/08/22 Tj Larose MD Marble Supervisor Nephrology 04/10/24 documented as of this encounter
== END 2024-09-15 15:27 | disposition home or self-care (01) ==
LOC: HO.HUSH 14:24
PROVIDERS: PCP Internal Medicine; Visit Provider Nurse Practitioner Family
DX: N28.1 Cyst of kidney, acquired (principal)
CPT/HCPCS: 99203

== ENCOUNTER → 2024-09-15 14:24 | Outpatient (BNVA) | payer OTHER, SELFPAY | PROVIDERS: PCP Internal Medicine; Visit Provider Nurse Practitioner Family | DX: N28.1 Cyst of kidney, acquired (principal) | CPT/HCPCS: 99202 ==

== ENCOUNTER 2024-09-20 11:54 | Emergency (ER) | payer OTHER, SELFPAY ==
--- NOTE | ~2024-09-20 | XR_ITS ---
CLINICAL HISTORY: missed HD 1 view chest x-ray Comparison: CR - XR CHEST 2V - 07/21/24 17:25 EST Findings: Mild cardiomegaly. Pulmonary vascular congestion is present, similar to the prior study. Small linear scar within the left upper lobe without change. No consolidation or pleural effusion. No acute fracture. IMPRESSION: There is pulmonary vascular congestion. This document has been electronically signed by: Shyanne Rivas MD on 09/20/2024 13:54:11
[2024-09-20 12:05] VITALS: BP 192/93; PULSE 75; O2SAT 97
[2024-09-20 12:06] VITALS: BP 163/97; PULSE 78; RESP 18; TEMP 36.9; O2SAT 97; BMI 26.1
--- NOTE | 2024-09-20 12:14 | ED_ITS ---
HPI - General Adult General Chief complaint: General Medical Stated complaint: WEAK,BP 217/91,MISSED DIALYSIS TODAY PER EMS Time Seen by Provider: 09/20/24 12:10 Source: patient, EMS, RN notes reviewed and old records reviewed Mode of arrival: EMS History of Present Illness ED Provider: Jessika Treadwell PA-C HPI narrative: 69-year-old Indian-speaking female with a past medical history of ESRD on HD (//Sun), HTN, DM, asthma/COPD, pulmonary hypertension, hypertrophic cardiomyopathy, opiate dependence on buprenorphine, GERD, chronic back pain, rectal prolapse, presenting to the ED via EMS s/p missing dialysis today. States her phone was not working & dialysis center attempted to reach her/pick her up, however she did not answer, thus she never went to HD today. Admits last dialysis was on . Admits called EMS and was noted to be hypertensive systolic 200s. Reports rectal pain and large palpable lump. Also reports constipation without BM x3 days. Is passing flatus. Denies fever, chills, cough, CP/SOB, abdominal pain, vomiting Related Data Home Medications ?Medication ?Instructions ?Recorded ?Confirmed melatonin 5 mg tablet 5 mg PO BEDTIME PRN Sleep 04/15/21 07/21/24 pantoprazole 40 mg tablet,delayed 40 mg PO DAILY@0630 04/15/21 07/21/24 release aspirin 81 mg tablet,delayed 1 tab PO DAILY 10/11/21 07/21/24 release albuterol sulfate 90 mcg/actuation 2 puff inhalation Q4H PRN wheezing 01/31/22 07/21/24 aerosol inhaler (Ventolin HFA) albuterol sulfate 2.5 mg/3 mL 1 amp inhalation Q6H PRN Shortness 05/08/22 07/21/24 (0.083 %) solution for nebulization Of Breath isosorbide dinitrate 30 mg tablet 30 mg PO TID 07/10/22 07/21/24 calcium acetate(phosphat bind) 667 1,334 mg PO TIDWM 03/13/23 07/21/24 mg capsule lactulose 10 gram/15 mL oral 10 g PO DAILY PRN constipation 03/13/23 07/21/24 solution mirtazapine 15 mg tablet 15 mg PO BEDTIME 03/13/23 07/21/24 carvedilol 25 mg tablet 25 mg PO BID 01/28/24 07/21/24 amlodipine 10 mg tablet 10 mg PO DAILY 04/19/24 07/21/24 buprenorphine 12 mg-naloxone 3 mg 1 film sublingual DAILY 04/19/24 07/21/24 sublingual film glucose 4 gram chewable tablet 16 g PO Q15M PRN hypoglycemia 04/19/24 07/21/24 sodium zirconium cyclosilicate 10 10 g PO MOWEFR@0900 04/19/24 07/21/24 gram oral powder packet (Lokelin) vitamin B comp no.3-folic acid 1 1 tab PO DAILY 04/19/24 07/21/24 mg-vit C 60 mg-biotin 300 mcg tablet ([facility]) clonidine HCl 0.1 mg tablet 0.1 mg PO TID 07/21/24 07/21/24 diclofenac sodium 1 % topical gel 2 g topical BID PRN Pain 07/21/24 07/21/24 ondansetron HCl 4 mg tablet 4 mg PO Q12H PRN nausea/vomiting 07/21/24 07/21/24 trazodone 100 mg tablet 100 mg PO BEDTIME PRN insomnia 07/21/24 07/21/24 acetaminophen 500 mg tablet 500 mg PO Q8H PRN pain 07/22/24 07/22/24 docusate sodium 100 mg capsule 100 mg PO BID PRN Y 07/22/24 07/22/24 (Colace) Previous Rx's ?Medication ?Instructions ?Recorded hydralazine 50 mg tablet 50 mg PO TID #270 tabs 04/24/24 Allergies Allergy/AdvReac Type Severity Reaction Status Date / Time No Known Allergies Allergy Verified 09/20/24 12:07 Review of Systems 2 Review of Systems: Yes all other systems are reviewed and are negative Constitutional: Constitutional: Reports as per [facility] Past Medical History Attestation statement: The following information was validated with the patient. Source: old records reviewed Medical History Chronic renal failure Essential hypertension ESRD (end stage renal disease) on dialysis Diabetes mellitus Hemorrhoids that prolapse with straining, but retract spontaneously Hemorrhoids with complication ESRD on dialysis Delirium Sepsis Tachycardia Leukocytosis Fever End stage chronic kidney disease Congestive heart failure with left ventricular dysfunction ESRD (end stage renal disease) Hypertension Pulmonary congestion COVID-19 virus infection Asthma with COPD with exacerbation COVID ESRD (end stage renal disease) Hypertrophic cardiomyopathy Acute exacerbation of chronic obstructive pulmonary disease (COPD) Heart failure with preserved ejection fraction Constipation End stage renal disease on dialysis Ascites Anasarca Ischemic colitis Acute GI bleeding Anemia Dialysis patient, noncompliant Anemia in chronic kidney disease Opioid withdrawal Essential hypertension Surgical History No pertinent past surgical history Family History Family History Other Hypertension Social History Social History Household Members: Family Housing: Apartment Do you presently have visiting nurse or other home services: Yes (debi) Unable to assess alcohol history related to: Unknown Alcohol intake: never Comment: pt in dialysis at this time. Patient Tobacco Use Status: Current everyday Tobacco user Tobacco use type: Cigarette Cigarette Packs Per Day: 2 Cigarettes Per Day: 1 Years Smoked: 50 +/- Smoked in Last 30 Days: No e-Cigarette/Vaping Use: Never Used Second Hand Smoke Exposure: No Use of substances other than those prescribed or required for medical reasons: No Substance Use Type: Marijuana Advance Directives: Yes Advance Directives on File: Yes Advance Directives Date on File: 04/19/23 Do you have a plan to hurt others: No Plan service: No Current occupational status: disabled Physical Exam ED Vital Signs: Vital Signs - 24 hr 09/20/24 12:06 09/20/24 16:00 Temperature 98.5 F Pulse Rate 78 75 Respiratory Rate 18 18 Blood Pressure 163/97 H 165/77 H Pulse Oximetry 97 96 Oxygen Delivery Method Room Air Room Air BMI result Body Mass Index 26.1 Const General: cooperative, healthy appearing and no acute distress Orientation/consciousness: patient oriented x3 Limitations: no limitations HENMT Head: Yes normal to inspection and Yes atraumatic Ears: hearing grossly normal bilaterally General nose exam: Normal external nose present Face and sinus: Yes normal facial exam Eyes General: appearance normal, both eyes and all related structures EOM: EOMs intact bilaterally Neck Neck: Yes normal visual inspection and Yes no meningeal signs Resp Effort & Inspection: normal respiratory effort and no respiratory distress Auscultation: clear to auscultation bilaterally, no crackles, no rhonchi and no wheezes Cardio Rate: regular rate Heart sounds: S1 normal heart sound present and S2 normal heart sound present GI Other: Please refer to image above Inspection: Yes normal to inspection Palpation (GI): Soft to palpation, nontender, no guarding and not rigid Rectal Exam - Female: Rectal prolapse General: Yes no CVA tenderness Back/Spine/Pelvis Back: no CVA tenderness Skin Rashes: no rashes Wounds: no wounds Neuro General: patient oriented x3, tone normal and no meningeal signs Cranial nerves: Yes CN's II-XII intact bilaterally Gait exam (Neuro): Normal gait present Extrem General: Yes normal to inspection Course Course Course Narrative: -1242--Dr. Carranza recommended topical sugar and warm/moist face cloths. She will evaluate patient in the ED -1510--no leukocytosis. H&H at patient's baseline. BUN/creatinine chronically elevated. Troponin chronically elevated, BNP chronically elevated > clinically no evidence of fluid overload or respiratory compromise. XR chest 1V IMPRESSION: There is pulmonary vascular congestion. > this is unchanged from prior studies. -Dr. Carranza was able to successfully reduce rectal prolapse in the ED. patient does not need emergent surgical intervention at this time. Recommend patient follow up with [facility] for ultimate definitive treatment -patient does not require emergent dialysis at this time > will contact director case management to aid in coordination of HD possibly for tomorrow or Sunday > director case management spoke with Harish NEELY who reports patient will have to call 1st thing Sunday morning to see if there is a slight available for patient to obtain dialysis on Sunday rather than her scheduled Sunday. They cannot guarantee slot and will not know until Sunday. This was discussed with patient with geometry tutor, she verbalized understanding Results discussed with patient including worrisome signs and symptoms and strict return precautions, and when to return to the emergency department. They verbalized understanding and feel safe for discharge at this time. Medications Administered Discontinued Medications Generic Name Dose Route Start Last Admin Trade Name Freq PRN Reason Stop Dose Admin Midazolam HCl 1 mg 09/20/24 14:33 09/20/24 14:41 Midazolam Hcl 2 Mg/2 Ml Vial IVPUSH 09/20/24 14:34 1 mg ONCE ONE Administration Medical Decision Making Medical Decision Making MDM Narrative: 69-year-old Indian-speaking female with a past medical history of ESRD on HD (/Sun), HTN, DM, asthma/COPD, pulmonary hypertension, hypertrophic cardiomyopathy, opiate dependence on buprenorphine, GERD, chronic back pain, rectal prolapse, presenting to the ED via EMS s/p missing dialysis today. Reports rectal pain and large palpable lump. On exam vital signs stable, BP 163/97, NAD, nontoxic appearing, lungs CTA, abdomen soft and nontender. Non- reducible rectal prolapse appreciated. Concern for metabolic abnormalities due to missed HD & rectal prolapse. Concern for constipation when vs ?SBO. Low suspicion for CHF or hypertensive urgency/emergency at this time Plan: Labs, UA, CXR, general surgery consult Please refer to course for remaining clinical decision making, interpretation of labs/imaging results, and discussions with consultants and/or family members. Differential Diagnosis Differential Diagnoses: The differential diagnosis associated with the presentation includes As above Admission/Observation Consideration of admission/observation: Escalation of care including admission/observation considered Consult Healthcare Provider Management of the patient was discussed with: Apartment Manager (General surgery, Dr. Carranza) Lab Data [facility] Lab Attestation statement: I reviewed the patient's lab results. 09/20/24 13:26 09/20/24 13:26 Labs: Lab Results 09/20/24 Range/Units 13:26 WBC 8.1 (4.8-10.8) X10*3/uL RBC 3.24 L (4.20-5.50) X10*6/uL Hgb 10.4 L (12.0-16.0) g/dl Hct 31.8 L (37.0-47.0) % MCV 98.1 H (80.0-98.0) fL MCH 32.1 (27.0-33.0) pg MCHC 32.7 (31.0-35.0) g/dl RDW 15.3 (11.0-16.0) % Plt Count 176 (160-400) X10*3/uL MPV 9.1 L (9.4-12.3) fL Immature Gran % (Auto) 0.4 (0.0-0.4) % Neut % (Auto) 75.6 H (45-73) % Lymph % (Auto) 11.6 L (20-40) % [place] % (Auto) 9.5 (2-11) % Eos % (Auto) 2.5 (0-4) % Baso % (Auto) 0.4 (0-2) % Lymph # (Auto) 0.9 L (1.2-4.9) X10*3/uL [place] # (Auto) 0.8 (0.1-1.2) X10*3/uL Eos # (Auto) 0.2 (0.0-0.4) X10*3/uL Baso # (Auto) 0.0 (0.0-0.2) X10*3/uL Abs Immat Gran (auto) 0.03 (0.00-0.03) X10*3/uL Absolute Neuts (auto) 6.1 (2.0-8.3) x10*3/uL Absolute Nucleated RBC 0.000 (0.0-0.012) X10*3/uL Nucleated RBC % (auto) 0.0 (0.0-0.2) /100WBC Sodium 136 (135-145) mmol/L Potassium 4.1 (3.3-5.1) mmol/L Chloride 96 (96-108) mmol/L Carbon Dioxide 23 (22-29) mmol/L Anion Gap 21 H (12-20) BUN 49 H (9-16) mg/dL Creatinine 7.06 H* (0.5-1.4) mg/dL Estim Creat Clear Calc 7.2 Estimated GFR 6 Random Glucose 141 H (60-115) mg/dL Calcium 8.7 D (8.4-10.2) mg/dL Magnesium 2.6 (1.6-2.6) mg/dL Total Bilirubin 0.4 (0.0-1.0) mg/dL Direct Bilirubin 0.1 (0.0-0.5) mg/dL AST 27 (5-31) U/L ALT 19 (0-31) U/L Alkaline Phosphatase 140 H (39-117) U/L Troponin I High Sens 53.6 H* (<3.5-17.0) ng/L B-Natriuretic Peptide 3046 H (<100) pg/mL Total Protein 6.7 (6.5-8.0) g/dL Albumin 3.8 (3.5-5.0) g/dL Lipase 11 (8-78) U/L Independent Interpretation I performed an independent interpretation of an: EKG and Plain X-Ray Radiology Impression Discussion of test interpretation with radiology: I have reviewed the radiologist's reading. Independent Historian Clinical information obtained from an independent historian. History obtained from or confirmed by: EMS External Record Review External record reviewed: Inpatient record, Office record, Outpatient record, Prior outpatient labs, Prior outpatient radiology, Primary care record and Outside ED record Tests considered The following testing was considered but not selected: As above Prescription Management I considered prescription management with: Other Chronic Conditions Patient?s care impacted by: Diabetes, Hypertension and Other (ESRD on HD) Social Determinants Patient?s care significantly limited by Social Determinants of Health including: Other Social Determinant of Health Discharge Plan Discharge Clinical Impression: Rectal prolapse, ESRD (end stage renal disease) Patient Disposition: Home, Self-Care Instructions: Chronic Kidney Disease Diet (DC), Rectal Prolapse (ED) Additional Instructions: You have a rectal prolapse. You need to follow-up with [facility] colorectal surgery. Call Sunday to make an appointment If your rectum prolapses again, is painful, & you're unable to reduce it/push it back in please go directly to [facility] emergency department You need dialysis. Please call your dialysis center 1st thing on Sunday morning, they may be able to fit you in on Sunday for dialysis since you missed it today. It is important you do not miss your dialysis If you develop leg swelling, shortness of breath, chest pain, abdominal pain, vomiting, you are unable to have a bowel movement return to the ED [facility] [address] [place],?[place]?[id number] Phone:?[phone] Prescriptions: No Action pantoprazole 40 mg Tablet,Delayed Release (Dr/Ec) 40 mg PO DAILY@0630 melatonin 5 mg Tablet 5 mg PO BEDTIME PRN (Reason: Sleep) aspirin 81 mg tablet,delayed release (DR/EC) 1 tab PO DAILY albuterol sulfate [Ventolin HFA] 90 mcg/actuation HFA aerosol inhaler 2 puff INHALATION Q4H PRN (Reason: wheezing) albuterol sulfate 2.5 mg /3 mL (0.083 %) solution for nebulization 1 amp inhalation Q6H PRN (Reason: Shortness Of Breath) isosorbide dinitrate 30 mg Tablet 30 mg PO TID Rx Instructions: allow nitrate-free interval of 12-14 hrs per 24-hr period Elle-Sharifa Rx 1-60-300 mg-mg-mcg tablet 1 tab PO DAILY buprenorphine-naloxone 12-3 mg film 1 film sublingual DAILY Lokelma 10 gram powder in packet 10 g PO MOWEFR@0900 amlodipine 10 mg tablet 10 mg PO DAILY glucose 4 gram tablet,chewable 16 g PO Q15M PRN (Reason: hypoglycemia) hydralazine 50 mg Tablet 50 mg PO TID Qty: 270 0RF Protocol: Hold for SBP< HOLD for SBP < : 90 trazodone 100 mg tablet 100 mg PO BEDTIME PRN (Reason: insomnia) diclofenac sodium 1 % gel 2 g topical BID PRN (Reason: Pain) clonidine HCl 0.1 mg tablet 0.1 mg PO TID ondansetron HCl 4 mg tablet 4 mg PO Q12H PRN (Reason: nausea/vomiting) acetaminophen 500 mg tablet 500 mg PO Q8H PRN (Reason: pain) docusate sodium [Colace] 100 mg Capsule 100 mg PO BID MDD Constipation PRN (Reason: Y) mirtazapine 15 mg tablet 15 mg PO BEDTIME calcium acetate(phosphat bind) 667 mg capsule 1,334 mg PO TIDWM lactulose 10 gram/15 mL solution 10 g PO DAILY PRN (Reason: constipation) carvedilol 25 mg tablet 25 mg PO BID Referrals: [facility] Colorectal Surgery [Outside] - 2 days Print Language: Indian
--- NOTE | 2024-09-20 12:47 | ECG_ITS ---
Test Reason : MISSED HD Blood Pressure : */* mmHG Vent. Rate : 72 BPM Atrial Rate : 72 BPM P-R Int : 192 ms QRS Dur : 88 ms QT Int : 424 ms P-R-T Axes : 74 -12 78 degrees QTcB Int : 464 ms Normal sinus rhythm Moderate voltage criteria for LVH, may be normal variant ( Sokolow-Burton , Jona product ) Borderline ECG When compared with ECG of 21-Jul-2024 14:59, No significant change was found Referred By: Jessika Treadwell Electronically Signed By: SALVADOR SARABIA
[2024-09-20 13:30] LABS: MANUAL DIFF FLAG NO
[2024-09-20 13:34] LABS: Basophils Percent Auto 0.4 % (0-2); Eosinophils Absolute Auto 0.2 X10*3/uL (0.0-0.4); Eosinophils Percent Auto 2.5 % (0-4); Hematocrit 31.8 % (37.0-47.0); Hemoglobin 10.4 g/dl (12.0-16.0); Imm Gran Abs Auto 0.03 X10*3/uL (0.00-0.03); Imm Gran Pct Auto 0.4 % (0.0-0.4); Lymphocytes Absolute Auto 0.9 X10*3/uL (1.2-4.9); Lymphocytes Percent Auto 11.6 % (20-40); Mean Corpuscular HGB Conc 32.7 g/dl (31.0-35.0); Mean Corpuscular Hemoglobin 32.1 pg (27.0-33.0); Mean Corpuscular Volume 98.1 fL (80.0-98.0); Mean Platelet Volume 9.1 fL (9.4-12.3); Monocytes Absolute Auto 0.8 X10*3/uL (0.1-1.2); Monocytes Percent Auto 9.5 % (2-11); Neutrophils Absolute Auto 6.1 x10*3/uL (2.0-8.3); Neutrophils Percent Auto 75.6 % (45-73); Platelet Count 176 X10*3/uL (160-400); Red Blood Count 3.24 X10*6/uL (4.20-5.50); Red Cell Distribution Width 15.3 % (11.0-16.0); White Blood Count 8.1 X10*3/uL (4.8-10.8)
[2024-09-20 13:50] LABS: Alanine Aminotransferase 19 U/L (0-31); Albumin Level 3.8 g/dL (3.5-5.0); Alkaline Phosphatase 140 U/L (39-117); Anion Gap 21 (12-20); Aspartate Amino Transferase 27 U/L (5-31); Bilirubin Direct 0.1 mg/dL (0.0-0.5); Bilirubin Total 0.4 mg/dL (0.0-1.0); Blood Urea Nitrogen 49 mg/dL (9-16); Calcium 8.7 mg/dL (8.4-10.2); Carbon Dioxide 23 mmol/L (22-29); Chloride 96 mmol/L (96-108); Glucose Random 141 mg/dL (60-115); Lipase 11 U/L (8-78); Magnesium 2.6 mg/dL (1.6-2.6); Potassium 4.1 mmol/L (3.3-5.1); Sodium 136 mmol/L (135-145); Total Protein 6.7 g/dL (6.5-8.0)
[2024-09-20 13:55] LABS: B Type Natriuretic Peptide 3046 pg/mL (<100)
[2024-09-20 14:06] LABS: Creatinine Clr Calc Pharmacy 7.2; Estimated Glomerular Filt Rate 6; Troponin-I High Sensitivity 53.6 ng/L (<3.5-17.0)
[2024-09-20] MEDS: Midazolam HCl 2 MG/2 ML VIAL 1 MG IVPUSH (14:41)
--- NOTE | 2024-09-20 15:57 | P.CONGS_ITS ---
History of Present Illness Consult details Consult date: 09/20/24 Requesting physician: Jessika Treadwell Narrative: The patient is a 69-year-old female who has had chronic issues with rectal prolapse and just in May of this year saw Dr. Luis in the office for this rectal prolapse and while it was reducible it continues to recur and his recommendation was to see Colorectal surgery at [facility] for some procedure. The patient is on dialysis and gets dialyzed every Sunday and Sunday. Today she was not feeling well and was supposed to be going to dialysis but then started complaining of significant rectal pain and with observation of a significant amount of her rectum being prolapse she was brought to the emergency room. Here they attempted to reduce it but she was complaining of too much pain. The mucosa however was viable. Surgical consultation was had. She denies any abdominal pain but mainly the rectal pain.. Review of Systems 2 Review of Systems: Unable to get a good history as patient is moderately non cooperative [facility] Past Medical History Medical History Chronic renal failure Essential hypertension ESRD (end stage renal disease) on dialysis Diabetes mellitus Hemorrhoids that prolapse with straining, but retract spontaneously Hemorrhoids with complication ESRD on dialysis Delirium Sepsis Tachycardia Leukocytosis Fever End stage chronic kidney disease Congestive heart failure with left ventricular dysfunction ESRD (end stage renal disease) Hypertension Pulmonary congestion COVID-19 virus infection Asthma with COPD with exacerbation COVID ESRD (end stage renal disease) Hypertrophic cardiomyopathy Acute exacerbation of chronic obstructive pulmonary disease (COPD) Heart failure with preserved ejection fraction Constipation End stage renal disease on dialysis Ascites Anasarca Ischemic colitis Acute GI bleeding Anemia Dialysis patient, noncompliant Anemia in chronic kidney disease Opioid withdrawal Essential hypertension Family History Family History Other Hypertension Surgical History Surgical History No pertinent past surgical history Social History Social History Household Members: Family Housing: Apartment Do you presently have visiting nurse or other home services: Yes (vna) Unable to assess alcohol history related to: Unknown Alcohol intake: never Comment: pt in dialysis at this time. Patient Tobacco Use Status: Current everyday Tobacco user Tobacco use type: Cigarette Cigarette Packs Per Day: 2 Cigarettes Per Day: 1 Years Smoked: 50 +/- Smoked in Last 30 Days: No e-Cigarette/Vaping Use: Never Used Second Hand Smoke Exposure: No Use of substances other than those prescribed or required for medical reasons: No Substance Use Type: Marijuana Advance Directives: Yes Advance Directives on File: Yes Advance Directives Date on File: 04/19/23 Do you have a plan to hurt others: No Plan service: No Current occupational status: disabled Meds Allergies Allergy/AdvReac Type Severity Reaction Status Date / Time No Known Allergies Allergy Verified 09/20/24 12:07 Home Medications ?Medication ?Instructions ?Recorded ?Confirmed ?Last Taken ?Type melatonin 5 mg tablet 5 mg PO BEDTIME PRN Sleep 04/15/21 07/21/24 Unknown History pantoprazole 40 mg tablet,delayed 40 mg PO DAILY@0630 04/15/21 07/21/24 07/21/24 History release aspirin 81 mg tablet,delayed 1 tab PO DAILY 10/11/21 07/21/24 07/21/24 History release albuterol sulfate 90 mcg/actuation 2 puff inhalation Q4H PRN wheezing 01/31/22 07/21/24 Unknown History aerosol inhaler (Ventolin HFA) albuterol sulfate 2.5 mg/3 mL 1 amp inhalation Q6H PRN Shortness 05/08/22 07/21/24 Unknown History (0.083 %) solution for nebulization Of Breath isosorbide dinitrate 30 mg tablet 30 mg PO TID 07/10/22 07/21/24 07/21/24 History calcium acetate(phosphat bind) 667 1,334 mg PO TIDWM 03/13/23 07/21/24 07/21/24 History mg capsule lactulose 10 gram/15 mL oral 10 g PO DAILY PRN constipation 03/13/23 07/21/24 07/21/24 History solution mirtazapine 15 mg tablet 15 mg PO BEDTIME 03/13/23 07/21/24 07/21/24 History carvedilol 25 mg tablet 25 mg PO BID 01/28/24 07/21/24 07/21/24 History amlodipine 10 mg tablet 10 mg PO DAILY 04/19/24 07/21/24 07/21/24 History buprenorphine 12 mg-naloxone 3 mg 1 film sublingual DAILY 04/19/24 07/21/24 07/21/24 History sublingual film glucose 4 gram chewable tablet 16 g PO Q15M PRN hypoglycemia 04/19/24 07/21/24 Unknown History sodium zirconium cyclosilicate 10 10 g PO MOWEFR@0900 04/19/24 07/21/24 07/21/24 History gram oral powder packet (Lokelma) vitamin B comp no.3-folic acid 1 1 tab PO DAILY 04/19/24 07/21/24 07/21/24 History mg-vit C 60 mg-biotin 300 mcg tablet ([facility]) clonidine HCl 0.1 mg tablet 0.1 mg PO TID 07/21/24 07/21/24 Unknown History diclofenac sodium 1 % topical gel 2 g topical BID PRN Pain 07/21/24 07/21/24 07/21/24 History ondansetron HCl 4 mg tablet 4 mg PO Q12H PRN nausea/vomiting 07/21/24 07/21/24 Unknown History trazodone 100 mg tablet 100 mg PO BEDTIME PRN insomnia 07/21/24 07/21/24 Unknown History acetaminophen 500 mg tablet 500 mg PO Q8H PRN pain 07/22/24 07/22/24 Unknown History docusate sodium 100 mg capsule 100 mg PO BID PRN Y 07/22/24 07/22/24 Unknown History (Colace) Physical Exam 2 Vital Signs: Vital Signs: Last Vital Signs Temp 98.5 F 09/20/24 12:06 Pulse 78 09/20/24 12:06 Resp 18 09/20/24 12:06 BP 163/97 H 09/20/24 12:06 Pulse Ox 97 09/20/24 12:06 O2 Del Method Room Air 09/20/24 12:06 BMI result Body Mass Index 26.1 Const: General: comfortable and no acute distress GI: Other: Abdomen is soft nondistended nontender. On examining the rectal area she has about 6 in of pink healthy rectum prolapsed outside. No evidence of any ischemia. Results Labs 09/20/24 13:26 09/20/24 13:26 Labs: Abnormal lab results 09/20/24 Range/Units 13: RBC 3.24 L (4.20-5.50) X10*6/uL Hgb 10.4 L (12.0-16.0) g/dl Hct 31.8 L (37.0-47.0) % MCV 98.1 H (80.0-98.0) fL MPV 9.1 L (9.4-12.3) fL Neut % (Auto) 75.6 H (45-73) % Lymph % (Auto) 11.6 L (20-40) % Lymph # (Auto) 0.9 L (1.2-4.9) X10*3/uL Anion Gap 21 H (12-20) BUN 49 H (9-16) mg/dL Creatinine 7.06 H* (0.5-1.4) mg/dL Random Glucose 141 H (60-115) mg/dL Alkaline Phosphatase 140 H (39-117) U/L Troponin I High Sens 53.6 H* (<3.5-17.0) ng/L B-Natriuretic Peptide 3046 H (<100) pg/mL Short CBC 09/20/24 Range/Units 13:26 WBC 8.1 (4.8-10.8) X10*3/uL Hgb 10.4 L (12.0-16.0) g/dl Hct 31.8 L (37.0-47.0) % Plt Count 176 (160-400) X10*3/uL BMP 09/20/24 13:26 Sodium 136 Potassium 4.1 Chloride 96 Carbon Dioxide 23 BUN 49 H Creatinine 7.06 H* Calcium 8.7 D Liver Function 09/20/24 Range/Units 13:26 Total Bilirubin 0.4 (0.0-1.0) mg/dL Direct Bilirubin 0.1 (0.0-0.5) mg/dL AST 27 (5-31) U/L ALT 19 (0-31) U/L Alkaline Phosphatase 140 H (39-117) U/L Albumin 3.8 (3.5-5.0) g/dL All other labs normal. Assessment and Plan (1) Rectal prolapse: Status: Acute Plan 69-year-old female with multiple medical problems more concerning is her end- stage renal disease and requiring dialysis and now this chronic rectal prolapse. She did see Dr. Luis who is recommending her to follow up in [facility] and she thinks she may have an appointment but she is not sure and her [employer] is not here to help with the details. I initially was able to reduce the prolapse after having the ER team placed sugar and warm face cloth on the protruding bowel for about 40 minutes however the patient was complaining about pain and uncomfortable and would push out the reduced rectum. I was able to finally give her 1 mg of Versed and watch her as she relaxed and then reduce the rectum completely and then portion and hold till she was very sleepy and comfortable and tolerated it and then it has stayed in place. We discussed with her through the Yi-speaking quick sketch artist that if this were to happen again that she really needs to be seen at [facility] as there is nothing that we can do here. We talked about taking stool softeners but I am not sure how much she is going to be compliant with all of this. It seems like she has been living with it out and it is not as worrisome to her. However I am concerned that it can not get strangulated and then we will be a big problem. We will leave it up to the medical team to decide what to do about her dialysis for today but she looks stable enough that maybe they can consider having her go home and then getting dialyzed on Sunday as scheduled. In addition we will have our office send over an urgent consult to [facility] colorectal to see her for maybe a lesser procedure in order to at least control some of this prolapse as it is only a matter of time before she gets into bigger trouble with it. By the time patient was discharged it seems that the prolapsed rectum still is reduced in in the peritoneal cavity Procedures Date of Service Date of Service: 09/20/24
[2024-09-20 16:00] VITALS: BP 165/77; PULSE 75; RESP 18; O2SAT 96
[2024-09-20 18:00] VITALS: BP 165/77; PULSE 81; RESP 18; TEMP 36.9; O2SAT 96
[2024-09-20 19:26] VITALS: BP 165/77; PULSE 81; RESP 18; TEMP 36.9; O2SAT 96
== END 2024-09-20 19:27 | disposition home or self-care (01) ==
PROVIDERS: Physician Assistant; Emergency Provider Emergency Medicine; PCP Internal Medicine
DX: K62.3 Rectal prolapse (principal); K62.89 Other specified diseases of anus and rectum; N18.6 End stage renal disease; Z99.2 Dependence on renal dialysis; Z91.158 Patient's noncompliance with renal dialysis for other reason
CPT/HCPCS: 36415; 71045; 80048; 80076; 83690; 83735; 83880; 84484; 85025; 93005; 96374; 99284; J2250

== ENCOUNTER → 2024-09-20 12:24 | Outpatient (BNV) | payer OTHER, SELFPAY | PROVIDERS: Emergency Provider Emergency Medicine; PCP Internal Medicine; Visit Provider Surgery | DX: K62.3 Rectal prolapse (principal) | CPT/HCPCS: 99284 ==

== ENCOUNTER → 2024-09-20 12:37 | Outpatient (BNV) | payer OTHER, SELFPAY | PROVIDERS: Emergency Provider Emergency Medicine; PCP Internal Medicine; Visit Provider Radiology Diagnostic Radiology | DX: J81.0 Acute pulmonary edema (principal) | CPT/HCPCS: 71045 ==

== ENCOUNTER → 2024-09-20 12:47 | Outpatient (BNV) | payer OTHER, SELFPAY | PROVIDERS: Emergency Provider Emergency Medicine; PCP Internal Medicine; Visit Provider Internal Medicine | DX: Z13.6 Encounter for screening for cardiovascular disorders (principal) | CPT/HCPCS: 93010 ==

== ENCOUNTER → 2024-10-10 07:06 | Outpatient (BNVA) | payer OTHER, SELFPAY | PROVIDERS: PCP Internal Medicine; Visit Provider Internal Medicine Gastroenterology ==

== ENCOUNTER 2024-11-03 20:47 | Emergency (ER) | payer OTHER, SELFPAY ==
[2024-11-03] VITALS (13 sets, daily range): BP systolic 171–254; BP diastolic 93–148; PULSE 81–97; RESP 20–30; TEMP 36.1; O2SAT 88–100; BMI 27.4
--- NOTE | ~2024-11-03 | XR_ITS ---
CLINICAL HISTORY: pulm edema 1 view chest x-ray Comparison: CR - XR CHEST 1V - 09/20/24 12:58 EDT Findings: Diffuse interstitial prominence in both lungs, unchanged in the interval. Normal size heart. No acute fracture. IMPRESSION: Diffuse interstitial prominence in both lungs, unchanged in the interval. This document has been electronically signed by: Zulema Gunderson MD on 11/03/2024 21:54:13
[2024-11-03] MEDS: Labetalol HCL 100 MG/20 ML VIAL 20 MG IVPUSH ×2 (21:09→21:44)
[2024-11-03] MEDS: Nitroglycerin 2 % Oint 1 GM Packet 1 INCH TRANSDERMA (21:10)
--- NOTE | 2024-11-03 21:10 | ED_ITS ---
HPI - SOB/Dyspnea General Chief Complaint: Dyspnea Stated Complaint: sob Time Seen by Provider: 11/03/24 20:55 Source: patient and EMS Mode of arrival: EMS Limitations: no limitations History of Present Illness ED Provider: HPI Narrative: Patient with history of hypertension end-stage renal disease on hemodialysis Sunday//Sunday, diabetes, asthma/COPD, hypotension, hypertrophic cardiomyopathy comes here for increased shortness a breath started just prior to arrival patient has had full dialysis 2 days ago on arrival patient was tachypneic saturating high 80s at room air blood pressure was elevated to 236/123 saturating 88% on 2 L denies any chest pain but feel chest tightness patient does not make any urine MD elicited complaint: shortness of breath Related Data Home Medications ?Medication ?Instructions ?Recorded ?Confirmed melatonin 5 mg tablet 5 mg PO BEDTIME PRN Sleep 04/15/21 07/21/24 pantoprazole 40 mg tablet,delayed 40 mg PO DAILY@0630 04/15/21 07/21/24 release aspirin 81 mg tablet,delayed 1 tab PO DAILY 10/11/21 07/21/24 release albuterol sulfate 90 mcg/actuation 2 puff inhalation Q4H PRN wheezing 01/31/22 07/21/24 aerosol inhaler (Ventolin HFA) albuterol sulfate 2.5 mg/3 mL 1 amp inhalation Q6H PRN Shortness 05/08/22 07/21/24 (0.083 %) solution for nebulization Of Breath isosorbide dinitrate 30 mg tablet 30 mg PO TID 07/10/22 07/21/24 calcium acetate(phosphat bind) 667 1,334 mg PO TIDWM 03/13/23 07/21/24 mg capsule lactulose 10 gram/15 mL oral 10 g PO DAILY PRN constipation 03/13/23 07/21/24 solution mirtazapine 15 mg tablet 15 mg PO BEDTIME 03/13/23 07/21/24 carvedilol 25 mg tablet 25 mg PO BID 01/28/24 07/21/24 amlodipine 10 mg tablet 10 mg PO DAILY 04/19/24 07/21/24 buprenorphine 12 mg-naloxone 3 mg 1 film sublingual DAILY 04/19/24 07/21/24 sublingual film glucose 4 gram chewable tablet 16 g PO Q15M PRN hypoglycemia 04/19/24 07/21/24 sodium zirconium cyclosilicate 10 10 g PO MOWEFR@0900 04/19/24 07/21/24 gram oral powder packet ([facility]) vitamin B comp no.3-folic acid 1 1 tab PO DAILY 04/19/24 07/21/24 mg-vit C 60 mg-biotin 300 mcg tablet ([facility]) clonidine HCl 0.1 mg tablet 0.1 mg PO TID 07/21/24 07/21/24 diclofenac sodium 1 % topical gel 2 g topical BID PRN Pain 07/21/24 07/21/24 ondansetron HCl 4 mg tablet 4 mg PO Q12H PRN nausea/vomiting 07/21/24 07/21/24 trazodone 100 mg tablet 100 mg PO BEDTIME PRN insomnia 07/21/24 07/21/24 acetaminophen 500 mg tablet 500 mg PO Q8H PRN pain 07/22/24 07/22/24 docusate sodium 100 mg capsule 100 mg PO BID PRN Y 07/22/24 07/22/24 (Colace) Previous Rx's ?Medication ?Instructions ?Recorded hydralazine 50 mg tablet 50 mg PO TID #270 tabs 04/24/24 Allergies Allergy/AdvReac Type Severity Reaction Status Date / Time No Known Allergies Allergy Verified 11/03/24 21:06 Review of Systems 2 Review of Systems: Yes all other systems are reviewed and are negative PMFSH Past Medical History Medical History Chronic renal failure Essential hypertension ESRD (end stage renal disease) on dialysis Diabetes mellitus Hemorrhoids that prolapse with straining, but retract spontaneously Hemorrhoids with complication ESRD on dialysis Delirium Sepsis Tachycardia Leukocytosis Fever End stage chronic kidney disease Congestive heart failure with left ventricular dysfunction ESRD (end stage renal disease) Hypertension Pulmonary congestion COVID-19 virus infection Asthma with COPD with exacerbation COVID ESRD (end stage renal disease) Hypertrophic cardiomyopathy Acute exacerbation of chronic obstructive pulmonary disease (COPD) Heart failure with preserved ejection fraction Constipation End stage renal disease on dialysis Ascites Anasarca Ischemic colitis Acute GI bleeding Anemia Dialysis patient, noncompliant Anemia in chronic kidney disease Opioid withdrawal Essential hypertension Surgical History No pertinent past surgical history Family History Family History Other Hypertension Social History Social History Household Members: Family Housing: Apartment Do you presently have visiting nurse or other home services: Yes (vna) Unable to assess alcohol history related to: Unknown Alcohol intake: never Comment: pt in dialysis at this time. Patient Tobacco Use Status: Current everyday Tobacco user Tobacco use type: Cigarette Cigarette Packs Per Day: 2 Cigarettes Per Day: 1 Years Smoked: 50 +/- e-Cigarette/Vaping Use: Never Used Second Hand Smoke Exposure: No Substance Use Type: Marijuana Advance Directives: Yes Advance Directives on File: Yes Advance Directives Date on File: 04/19/23 service: No Current occupational status: disabled Physical Exam 2 Vital Signs: Vital Signs: Last Vital Signs Pulse 85 11/03/24 23:05 Resp 30 H 11/03/24 21:28 BP 178/93 H 11/03/24 23:05 Pulse Ox 98 11/03/24 21:21 O2 Del Method BiPAP 11/03/24 21:21 Oxygen Flow Rate 4 11/03/24 20:58 BMI result Body Mass Index 27.4 Appearance: Alert. Oriented X3. Moderate respiratory distress Eyes: PERRLA, No Nystagmus ENT: Pharynx normal. Oral Mucosa moist Neck: Normal inspection. Neck supple. CVS: Normal heart rate and rhythm. Pulses normal. Respiratory: Moderate respiratory distress. Equal air entry bilateral, prolonged expiration bilateral crackles Shiley catheter in the right side Abdomen: Soft and nontender. Bowel sounds are present, no mass palpable, no CVA tenderness Skin: Skin warm and dry. Normal skin color. Normal skin turgor. Extremities:2+ lower extremity edema. No calf tenderness Neuro: Oriented X 3. No motor deficit. Medications Administered Generic Name Dose Route Start Last Admin Trade Name Freq PRN Reason Stop Dose Admin Nitroglycerin/Dextrose 100 mg in 250 mls @ 0 mls/hr 11/03/24 22:15 11/03/24 23:05 Nitroglycerin/D5w IVCONT 80 mcg/min .Q0M PHAN 12 mls/hr Titration Protocol Per Protocol Discontinued Medications Generic Name Dose Route Start Last Admin Trade Name Freq PRN Reason Stop Dose Admin Furosemide 100 mg 11/03/24 21:00 11/03/24 21:17 Furosemide 100 Mg/10 Ml Vial IVPUSH 11/03/24 21:01 100 mg ONCE ONE Administration Protocol Hydralazine HCl 10 mg 11/03/24 21:49 11/03/24 21:52 Hydralazine Hcl 20 Mg/Ml Vial IVPUSH 11/03/24 21:50 10 mg ONCE ONE Administration Protocol Hydralazine HCl 10 mg 11/03/24 22:09 11/03/24 22:10 Hydralazine Hcl 20 Mg/Ml Vial IVPUSH 11/03/24 22:10 10 mg ONCE ONE Administration Protocol Labetalol HCl 20 mg 11/03/24 20:57 11/03/24 21:09 Labetalol Hcl 100 Mg/20 Ml Vial IVPUSH 11/03/24 20:58 20 mg ONCE ONE Administration Labetalol HCl 20 mg 11/03/24 21:42 11/03/24 21:44 Labetalol Hcl 100 Mg/20 Ml Vial IVPUSH 11/03/24 21:43 20 mg ONCE ONE Administration Nitroglycerin 1 inch 11/03/24 20:57 11/03/24 21:10 Nitroglycerin 2 % Oint 1 Gm Packet TRANSDERMA 11/03/24 20:58 1 inch ONCE ONE Administration Medical Decision Making Medical Decision Making [facility] Narrative: Patient with history of hypertension end-stage renal disease on hemodialysis Sunday//Sunday, diabetes, asthma/COPD, hypotension, hypertrophic cardiomyopathy comes here for increased shortness a breath started just prior to arrival noted to be hypertensive with blood pressure 236/123 and pulmonary edema received labetalol IV and hydralazine and IV Lasix started on nitro drip placed on BiPAP blood pressure improved to 199/100 no ICU bed in [facility] for urgent dialysis Case discussed with transfer team [facility] accepted the patient for transfer to ICU for dialysis accepting the physician Dr. Binh rayo [phone] Patient is still on BiPAP on nitro drip blood pressure improved 178/90 EMS here to take the patient to [facility] Differential Diagnosis Differential Diagnoses: The differential diagnosis associated with the presentation includes Admission/Observation Consideration of admission/observation: Escalation of care including admission/observation considered Lab Data [facility] Lab Attestation statement: I reviewed the patient's lab results. 11/03/24 21:05 11/03/24 21:05 Labs: Lab Results 11/03/24 11/03/24 Range/Units 21:05 21:12 WBC 8.0 (4.8-10.8) X10*3/uL RBC 3.82 L (4.20-5.50) X10*6/uL Hgb 12.2 (12.0-16.0) g/dl Hct 36.4 L (37.0-47.0) % MCV 95.3 (80.0-98.0) fL MCH 31.9 (27.0-33.0) pg MCHC 33.5 (31.0-35.0) g/dl RDW 15.1 (11.0-16.0) % Plt Count 164 (160-400) X10*3/uL MPV 10.2 (9.4-12.3) fL Immature Gran % (Auto) 0.4 (0.0-0.4) % Neut % (Auto) 83.1 H (45-73) % Lymph % (Auto) 8.4 L (20-40) % Bullitt % (Auto) 5.5 (2-11) % Eos % (Auto) 2.5 (0-4) % Baso % (Auto) 0.1 (0-2) % Lymph # (Auto) 0.7 L (1.2-4.9) X10*3/uL Bullitt # (Auto) 0.4 (0.1-1.2) X10*3/uL Eos # (Auto) 0.2 (0.0-0.4) X10*3/uL Baso # (Auto) 0.0 (0.0-0.2) X10*3/uL Abs Immat Gran (auto) 0.03 (0.00-0.03) X10*3/uL Absolute Neuts (auto) 6.7 (2.0-8.3) x10*3/uL Absolute Nucleated RBC 0.000 (0.0-0.012) X10*3/uL Nucleated RBC % (auto) 0.0 (0.0-0.2) /100WBC PT 10.4 L (10.9-12.4) SEC INR 0.9 (0.9-1.1) APTT 35.0 (26.0-36.8) SEC VBG pH 7.35 (7.32-7.43) VBG pCO2 45 mmHg VBG pO2 51 mmHg VBG HCO3 25 (22-26) mmol/L VBG O2 Saturation 75.0 % VBG Base Excess -0.4 mmol/L Sodium 131 L (135-145) mmol/L Potassium 5.4 H D (3.3-5.1) mmol/L Chloride 91 L (96-108) mmol/L Carbon Dioxide 23 (22-29) mmol/L Anion Gap 22 H (12-20) BUN 53 H (9-16) mg/dL Creatinine 6.78 H* (0.5-1.4) mg/dL Estim Creat Clear Calc 6.9 Estimated GFR 6 Random Glucose 159 H (60-115) mg/dL Calcium 9.2 (8.4-10.2) mg/dL Magnesium 2.2 (1.6-2.6) mg/dL Total Bilirubin 0.4 (0.0-1.0) mg/dL AST 29 (5-31) U/L ALT 19 (0-31) U/L Alkaline Phosphatase 168 H (39-117) U/L Troponin I High Sens 36.2 H (<3.5-17.0) ng/L B-Natriuretic Peptide 7827 H (<100) pg/mL Total Protein 7.5 (6.5-8.0) g/dL Albumin 4.2 (3.5-5.0) g/dL Independent Interpretation I performed an independent interpretation of an: EKG Interpretation: Normal sinus rhythm heart rate 87 beats per minute normal intervals normal axis widened P wave no acute ST-T no acute ischemia Radiology Impression Discussion of test interpretation with radiology: I have reviewed the radiologist's reading. Radiologist Impression: [address] [address] XRay Report Signed Patient: Cruz Muller MR#: [id number] : 1955 Acct:[id number] Age/Sex: 69 / F ADM Date: 11/03/24 Loc: HO.ED Attending Dr: Ordering Physician: Damien Latif MD Date of Service: 11/03/24 Procedure(s): XR chest 1V Accession Number(s): [id number] cc: Physician,Unknown ; Damien Latif MD~ CLINICAL HISTORY: pulm edema 1 view chest x-ray Comparison: CR - XR CHEST 1V - 09/20/24 12:58 EDT Findings: Diffuse interstitial prominence in both lungs, unchanged in the interval. Normal size heart. No acute fracture. IMPRESSION: Diffuse interstitial prominence in both lungs, unchanged in the interval. This document has been electronically signed by: Zulema Gunderson MD on 11/03/2024 21:54:13 Critical Care Time Critical Care Time Critical Care Time: Yes Total Critical Care Time: 65 Attestation: The patient was critically ill with a high probability of imminent or life threatening deterioration. I spent greater than ?70??minutes of discontinuous time evaluating the patient,delivering critical care at the bedside, discussing and evaluating pertinent data with consultants. Critical care time does not include time spent performing separately billable procedures or teaching. Total time spent performing critical care was ?65??minutes. Discharge Plan Discharge Clinical Impression: ESRD (end stage renal disease) on dialysis, Acute cardiogenic pulmonary edema, Accelerated essential hypertension Patient Disposition: [facility] Transfer Details: [facility] ICU Dr Wilkerson Prescriptions: No Action pantoprazole 40 mg Tablet,Delayed Release (Dr/Ec) 40 mg PO DAILY@0630 melatonin 5 mg Tablet 5 mg PO BEDTIME PRN (Reason: Sleep) aspirin 81 mg tablet,delayed release (DR/EC) 1 tab PO DAILY albuterol sulfate [Ventolin HFA] 90 mcg/actuation HFA aerosol inhaler 2 puff INHALATION Q4H PRN (Reason: wheezing) albuterol sulfate 2.5 mg /3 mL (0.083 %) solution for nebulization 1 amp inhalation Q6H PRN (Reason: Shortness Of Breath) isosorbide dinitrate 30 mg Tablet 30 mg PO TID Rx Instructions: allow nitrate-free interval of 12-14 hrs per 24-hr period Elle-Sharifa Rx 1-60-300 mg-mg-mcg tablet 1 tab PO DAILY buprenorphine-naloxone 12-3 mg film 1 film sublingual DAILY Lokelma 10 gram powder in packet 10 g PO MOWEFR@0900 amlodipine 10 mg tablet 10 mg PO DAILY glucose 4 gram tablet,chewable 16 g PO Q15M PRN (Reason: hypoglycemia) hydralazine 50 mg Tablet 50 mg PO TID Qty: 270 0RF Protocol: Hold for SBP< HOLD for SBP < : 90 trazodone 100 mg tablet 100 mg PO BEDTIME PRN (Reason: insomnia) diclofenac sodium 1 % gel 2 g topical BID PRN (Reason: Pain) clonidine HCl 0.1 mg tablet 0.1 mg PO TID ondansetron HCl 4 mg tablet 4 mg PO Q12H PRN (Reason: nausea/vomiting) acetaminophen 500 mg tablet 500 mg PO Q8H PRN (Reason: pain) docusate sodium [Colace] 100 mg Capsule 100 mg PO BID MDD Constipation PRN (Reason: Y) mirtazapine 15 mg tablet 15 mg PO BEDTIME calcium acetate(phosphat bind) 667 mg capsule 1,334 mg PO TIDWM lactulose 10 gram/15 mL solution 10 g PO DAILY PRN (Reason: constipation) carvedilol 25 mg tablet 25 mg PO BID Print Language: Slovak
[2024-11-03 21:11] LABS: MANUAL DIFF FLAG NO
[2024-11-03 21:13] LABS: Basophils Percent Auto 0.1 % (0-2); Eosinophils Absolute Auto 0.2 X10*3/uL (0.0-0.4); Eosinophils Percent Auto 2.5 % (0-4); Hematocrit 36.4 % (37.0-47.0); Hemoglobin 12.2 g/dl (12.0-16.0); Imm Gran Abs Auto 0.03 X10*3/uL (0.00-0.03); Imm Gran Pct Auto 0.4 % (0.0-0.4); Lymphocytes Absolute Auto 0.7 X10*3/uL (1.2-4.9); Lymphocytes Percent Auto 8.4 % (20-40); Mean Corpuscular HGB Conc 33.5 g/dl (31.0-35.0); Mean Corpuscular Hemoglobin 31.9 pg (27.0-33.0); Mean Corpuscular Volume 95.3 fL (80.0-98.0); Mean Platelet Volume 10.2 fL (9.4-12.3); Monocytes Absolute Auto 0.4 X10*3/uL (0.1-1.2); Monocytes Percent Auto 5.5 % (2-11); Neutrophils Absolute Auto 6.7 x10*3/uL (2.0-8.3); Neutrophils Percent Auto 83.1 % (45-73); Platelet Count 164 X10*3/uL (160-400); Red Blood Count 3.82 X10*6/uL (4.20-5.50); Red Cell Distribution Width 15.1 % (11.0-16.0)
[2024-11-03 21:15] LABS: Venous Blood Gas Refer to POC result
[2024-11-03 21:16] LABS: VBG Base Excess -0.4 mmol/L; VBG HCO3 25 mmol/L (22-26); VBG pCO2 45 mmHg; VBG pH 7.35 (7.32-7.43); VBG pO2 51 mmHg
[2024-11-03] MEDS: Furosemide 100 MG/10 ML VIAL IVPUSH (21:17)
[2024-11-03 21:18] LABS: INTERNATIONAL NORM RATIO 0.9 (0.9-1.1); Prothrombin Time 10.4 SEC (10.9-12.4)
[2024-11-03 21:31] LABS: Alanine Aminotransferase 19 U/L (0-31); Albumin Level 4.2 g/dL (3.5-5.0); Alkaline Phosphatase 168 U/L (39-117); Anion Gap 22 (12-20); Aspartate Amino Transferase 29 U/L (5-31); Bilirubin Total 0.4 mg/dL (0.0-1.0); Blood Urea Nitrogen 53 mg/dL (9-16); Calcium 9.2 mg/dL (8.4-10.2); Carbon Dioxide 23 mmol/L (22-29); Chloride 91 mmol/L (96-108); Creatinine Clr Calc Pharmacy 6.9; Estimated Glomerular Filt Rate 6; Glucose Random 159 mg/dL (60-115); Magnesium 2.2 mg/dL (1.6-2.6); Potassium 5.4 mmol/L (3.3-5.1); Sodium 131 mmol/L (135-145); Total Protein 7.5 g/dL (6.5-8.0)
[2024-11-03 21:34] LABS: Troponin-I High Sensitivity 36.2 ng/L (<3.5-17.0)
[2024-11-03] MEDS: hydrALAZINE HCl 20 MG/ML VIAL 10 MG IVPUSH ×2 (21:52→22:10)
[2024-11-03 21:54] LABS: B Type Natriuretic Peptide 7827 pg/mL (<100)
[2024-11-03] MEDS: Nitroglycerin/D5W 100 MG/250 ML INFUS..BTL IVCONT (22:19)
--- NOTE | 2024-11-03 22:57 | ECG_ITS ---
Test Reason : sob Blood Pressure : */* mmHG Vent. Rate : 87 BPM Atrial Rate : 87 BPM P-R Int : 188 ms QRS Dur : 90 ms QT Int : 398 ms P-R-T Axes : 73 -21 73 degrees QTcB Int : 478 ms Normal sinus rhythm Biatrial enlargement Abnormal ECG When compared with ECG of 20-Sep-2024 13:08, No significant change was found Referred By: Damien Latif Electronically Signed By: Charan Hankins
--- NOTE | 2024-11-03 23:19 | PC.NURSE ---
report given to CELIO Garcia at [facility] , pending transport via EMS
[2024-11-04 00:08] VITALS: BP 176/89; PULSE 87; O2SAT 100
[2024-11-04 00:10] VITALS: BP 176/89; BP 187/93; PULSE 87; PULSE 88; RESP 24; TEMP -17.7; TEMP 0; O2SAT 100
--- NOTE | 2024-11-04 00:10 | PC.NURSE ---
Pt transferred out with nitro drip running.
== END 2024-11-04 00:15 | disposition short-term general hospital (02) ==
PROVIDERS: Emergency Provider Internal Medicine
DX: R06.02 Shortness of breath (principal); E11.22 Type 2 diabetes mellitus with diabetic chronic kidney disease; I13.2 Hypertensive heart and chronic kidney disease with heart failure and with stage 5 chronic kidney disease, or end stage renal disease; I50.1 Left ventricular failure, unspecified; N18.6 End stage renal disease; Z99.2 Dependence on renal dialysis; F17.210 Nicotine dependence, cigarettes, uncomplicated; F12.90 Cannabis use, unspecified, uncomplicated; Z79.82 Long term (current) use of aspirin; Z79.899 Other long term (current) drug therapy
CPT/HCPCS: 36415; 71045; 80053; 82803; 83735; 83880; 84484; 85025; 85610; 85730; 93005; 96365; 96375; 99285; J0360; J1920; J1938; J2305

== ENCOUNTER → 2024-11-03 20:57 | Outpatient (BNV) | payer OTHER, SELFPAY | PROVIDERS: Emergency Provider Internal Medicine; Visit Provider Student in an Organized Health Care Education/Training Program | DX: R91.8 Other nonspecific abnormal finding of lung field (principal) | CPT/HCPCS: 71045 ==

== ENCOUNTER → 2024-11-03 22:57 | Outpatient (BNV) | payer OTHER, SELFPAY | PROVIDERS: Emergency Provider Internal Medicine; Visit Provider Internal Medicine Cardiovascular Disease | DX: I51.7 Cardiomegaly (principal) | CPT/HCPCS: 93010 ==

== ENCOUNTER 2024-11-10 13:39 | Outpatient (AMB) | payer OTHER, SELFPAY ==
[2024-11-10 14:02] VITALS: BP 128/68; PULSE 80; BMI 26.1
--- NOTE | 2024-11-10 14:02 | MHC.OFFVIS ---
Vital Signs 11/10/24 14:02 Height 5 ft 1 in Weight 138 lb 0.15 oz BMI 26.1 BP 128/68 Blood Pressure Location Lt brachial Position Sitting Pulse 80 Pulse Source Pulse Oximeter Intake Visit Reasons: Follow up Advanced Analytics Associate Required: No Tracing Lathe Set Up Operator: Tracing Lathe Set Up Operator Present Allergies No Known Allergies Allergy (Verified 11/10/24 14:09) Medication List - Last Reconciled 11/10/24 by RAE Lara acetaminophen 500 mg PO Q8H PRN albuterol sulfate 90 mcg/actuation (Ventolin HFA) 2 puffs inhalation Q4H PRN albuterol sulfate 1 amp inhalation Q6H PRN amlodipine 10 mg PO DAILY aspirin 1 tab PO DAILY buprenorphine-naloxone 12-3 mg 1 film sublingual DAILY calcium acetate(phosphat bind) 1,334 mg PO TIDWM carvedilol 25 mg PO BID clonidine HCl 0.1 mg PO TID diclofenac sodium 1% 2 grams topical BID PRN docusate sodium (Colace) 100 mg PO BID PRN MDD Constipation glucose 16 grams PO Q15M PRN hydralazine 50 mg See Protocol PO TID isosorbide dinitrate 30 mg PO TID lactulose 10 grams PO DAILY PRN losartan 50 mg PO DAILY melatonin 5 mg PO BEDTIME PRN mirtazapine 15 mg PO BEDTIME ondansetron HCl 4 mg PO Q12H PRN pantoprazole 40 mg PO DAILY@0630 sodium zirconium cyclosilicate (Lokelma) 10 grams PO MOWEFR@0900 trazodone 100 mg PO BEDTIME PRN vit B comp no.3-skphw-V-biotin 1-60-300 mg-mg-mcg (Elle-Sharifa Rx) 1 tab PO DAILY HPI HPI Follow up: Details: is a 69-year-old female with past medical history of hypertension, diabetes, end-stage renal disease on dialysis 3 times weekly, heart failure with preserved EF with recent [facility] admission for hypertensive emergency. She did have flash pulmonary edema requiring treatment with BiPAP, IV antihypertensives and emergent dialysis. She was continued on her usual home medications and now presents for follow-up. Her last prior visit to our office was 10/11/2022. Today she reports that her primary complaint is of pain from rectal prolapse. She tells me she is having a colonoscopy for further evaluation on November 26, in [place]. She is unsure of the doctor's name. She is denying chest discomfort at rest or with activity. She does have some shortness of breath with walking. She ambulates with a walker, slowly. No palpitations, lightheadedness, presyncope, syncope, PND, orthopnea. She has trace leg edema on examination. She has issues with depression and tells me she is now seeing a counselor. She has VNA daily. She reports compliance with her medications. Her HEAD CHEF is present. Certified lithography contact worker used. [facility] Medical History (Updated 11/10/24 @ 15:58 by Alyson Gibson, LINE HAUL OWNER OPERATOR-C) Chronic renal failure Essential hypertension ESRD (end stage renal disease) on dialysis Diabetes mellitus Hemorrhoids that prolapse with straining, but retract spontaneously Hemorrhoids with complication ESRD on dialysis Delirium Sepsis Tachycardia Leukocytosis Fever End stage chronic kidney disease Congestive heart failure with left ventricular dysfunction ESRD (end stage renal disease) Hypertension Pulmonary congestion COVID-19 virus infection Asthma with COPD with exacerbation COVID ESRD (end stage renal disease) Hypertrophic cardiomyopathy Acute exacerbation of chronic obstructive pulmonary disease (COPD) Heart failure with preserved ejection fraction Constipation End stage renal disease on dialysis Ascites Anasarca Ischemic colitis Acute GI bleeding Anemia Dialysis patient, noncompliant Anemia in chronic kidney disease Opioid withdrawal Essential hypertension Surgical History No pertinent past surgical history Family History Other Hypertension Social History Household Members: Family Housing: Apartment Do you presently have visiting nurse or other home services: Yes (vna) Unable to assess alcohol history related to: Unknown Alcohol intake: never Comment: pt in dialysis at this time. Patient Tobacco Use Status: Current everyday Tobacco user Tobacco use type: Cigarette Cigarette Packs Per Day: 2 Cigarettes Per Day: 1 Years Smoked: 50 +/- e-Cigarette/Vaping Use: Never Used Second Hand Smoke Exposure: No Substance Use Type: Marijuana Advance Directives Date on File: 04/19/23 service: No Current occupational status: disabled Review of Systems Const All systems reviewed & are unremarkable except as noted in HPI and below ENT Denies dizziness Card Denies chest pain, Denies chest pain at rest, Denies chest pain with activity, Denies rapid heart rate, Denies pedal edema, Denies edema, Denies leg edema, Denies lightheadedness, Denies palpitations, Denies dyspnea, Denies dyspnea on exertion and Denies orthopnea Resp Denies cough, Denies dyspnea and Denies dyspnea on exertion GI Details: reports rectal prolaps with pain. Denies hematochezia and Denies change in stool character Musc Reports abnormal gait (walker), Denies limited range of motion, Reports muscle cramps, Denies muscle weakness, Denies numbness, Denies radiating pain into limb, Denies stiffness and Denies tingling Neuro Reports abnormal gait (walker), Denies dizziness, Denies numbness and Denies tingling Endo Denies palpitations Physical Exam Vital Signs: Last Vital Signs Pulse 80 11/10/24 14:02 BP 128/68 11/10/24 14:02 BMI result Body Mass Index 26.1 Const Other: uncomfortable appearance, unable to sit flat due to reported rectal prolapse General: cooperative, healthy appearing and no acute distress Orientation/consciousness: patient oriented x3 Neck Neck: Yes normal visual inspection Resp Effort & Inspection: normal respiratory effort Auscultation: clear to auscultation bilaterally, no rales, no rhonchi and no wheezes Cardio Rate: regular rate Rhythm: regular rhythm Heart sounds: S1 normal heart sound present, S2 normal heart sound present, no gallops, no murmurs and no rubs Neuro General: patient oriented x3 Extrem General: Yes normal to inspection, No no pedal edema and No calf tenderness Psych Appearance: grossly normal Mental Status: mental status grossly normal Speech and movement: Normal speech and movement present Assessment & Plan Assessment & Plan (1) Heart failure with preserved ejection fraction: Code(s): I50.30 - Unspecified diastolic (congestive) heart failure Category: Medical Plan: History of heart failure with preserved EF. Recent hospitalization for hypertensive urgency, pulmonary edema requiring acute medical therapy. Last echo in our system 08/15/2022 showed EF 55-60%, no regional wall motion abnormalities, moderate to severe LVH.-will check to see if repeat echocardiogram was done at [facility]. If not will plan repeat echo. Continue carvedilol, hydralazine, isosorbide dinitrate, losartan to optimize heart function. Attend dialysis as scheduled 3 times weekly. Follow low-salt diet. Watch for signs of fluid overload. Cardiology follow-up in 4 months, sooner if needed. (2) Hypertensive urgency: Code(s): I16.0 - Hypertensive urgency Category: Medical Plan: above, blood pressure well controlled at this time. No medication changes made. (3) ESRD (end stage renal disease) on dialysis: Code(s): N18.6 - End stage renal disease; Z99.2 - Dependence on renal dialysis Category: Medical Plan: Follows closely with Nephrology and attends dialysis 3 times weekly. (4) Hospital discharge follow-up: Code(s): Z09 - Encounter for follow-up examination after completed treatment for conditions other than malignant neoplasm Category: Medical Plan: [facility] discharge reviewed. Plan I discussed with the patient that her blood pressure is well-controlled today, and no changes to her medications are necessary. I advised her to continue dialysis and maintain a low-salt diet to manage her conditions. We reviewed her upcoming colonoscopy appointment and the importance of following up with her counselor for depression management. Patient Instructions: - Continue taking all prescribed medications as directed. - Attend dialysis sessions three times a week. - Maintain a low-salt diet. - Follow up with your counselor for depression management. - Attend your colonoscopy appointment on November 26. Patient was informed and verbally consented to the use of an ambient scribe for clinic note documentation during this visit. Visit time spent on chart review, interview, assessment, orders, documentation. Coding Level of Care Code Est Pt Level 4 (87186) Complex EM visit Add On G2211 Diagnoses Heart failure with preserved ejection fraction I50.30 Hypertensive urgency I16.0 ESRD (end stage renal disease) on dialysis N18.6; Z99.2 Hospital discharge follow-up Z09 Time Spent (min) 28
--- OUTSIDE RECORDS SUMMARY | 2024-11-10 15:07 | XMS_ITS | Encounter Summary ---
Author Organization [facility] Address [address] [place] [address] Care Team Providers Care Thread Spooler Name Role Phone Sammy Strickland MD Primary Care Provider [phone] Encounter Details Date Type Department Care Team [...] on filedocumented in this encounter Care Teams Thread Spooler Relationship Specialty Start Date End Date Sammy Strickland MD [address] [place] [address] [place] [address] PCP - General 03/27/22 documented as of this encounter
== END 2024-11-10 14:58 | disposition home or self-care (01) ==
LOC: HO.HCS 13:39
PROVIDERS: PCP Internal Medicine; Visit Provider Nurse Practitioner Family
DX: I50.30 Unspecified diastolic (congestive) heart failure (principal); I16.0 Hypertensive urgency; N18.6 End stage renal disease; Z99.2 Dependence on renal dialysis; Z09 Encounter for follow-up examination after completed treatment for conditions other than malignant neoplasm
CPT/HCPCS: 99214; G2211

== ENCOUNTER → 2024-11-10 13:39 | Outpatient (BNVA) | payer OTHER, SELFPAY | PROVIDERS: PCP Internal Medicine; Visit Provider Nurse Practitioner Family | DX: Z09 Encounter for follow-up examination after completed treatment for conditions other than malignant neoplasm (principal); E11.22 Type 2 diabetes mellitus with diabetic chronic kidney disease; I16.0 Hypertensive urgency; I50.30 Unspecified diastolic (congestive) heart failure; N18.6 End stage renal disease; Z99.2 Dependence on renal dialysis | CPT/HCPCS: 99212 ==

== ENCOUNTER 2025-02-13 14:44 | Inpatient (IN) | payer OTHER, SELFPAY ==
[2025-02-13] VITALS (8 sets, daily range): BP systolic 175–190; BP diastolic 71–90; PULSE 79–93; RESP 14–24; TEMP 36.3–37.1; O2SAT 93–99; BMI 26.7; BMI 26.2
--- NOTE | ~2025-02-13 | XR_ITS ---
EXAMINATION: XR CHEST CLINICAL INFORMATION: hypoxia post HD, pulmonary crackles COMPARISON: 02/13/2025 TECHNIQUE: Frontal view of the chest was obtained. FINDINGS: Right IJ central catheter is unchanged. Heart size is upper limits of normal. There is mild blunting the left costophrenic angle. There are coarse interstitial lung markings. Fluid tracking along the minor fissure on the prior study has resolved. Minimal streaky opacities are noted along the left hemidiaphragm. XR/XR chest 1V IMPRESSION: Left basilar atelectasis, early pneumonia not ruled out. Trace left pleural effusion. Cardiomegaly. Possible mild pulmonary vascular congestion. Electronically signed by: Rajendra Quinn MD 02/17/2025 02:17 PM EDT
--- NOTE | ~2025-02-13 | CT_ITS ---
CLINICAL HISTORY: sob CT angiography chest with contrast. 3D Postprocessing. Comparison: CT/PA/SR - CT ABDOMEN PELVIS WO IV CON - 07/21/24 17:07 EST Findings: Respiratory motion limits evaluation. The heart is normal size. RV/LV ratio is normal. The thoracic aorta is normal caliber. No acute pulmonary embolus to the segmental level. Bilateral thyroid nodules. 1.3 cm aortopulmonary window lymph node, 1.4 cm subcarinal lymph node. No pathologically enlarged hilar, visualized supraclavicular, or axillary lymph nodes. Layering fluid in the sarah and proximal bilateral mainstem bronchi. Consolidation in the right middle lobe with air bronchograms, consistent with pneumonia. Other small bilateral consolidations are seen, some of which appear to be mucous plugs. Trace right pleural effusion. See same day CT of the abdomen and pelvis for more details. The bones are intact. IMPRESSION: Respiratory motion limits evaluation No pulmonary emboli to the segmental level Right middle lobe pneumonia and scattered mucous plugs or smaller regions of pneumonia. Layering fluid in the sarah and proximal bilateral mainstem bronchi, likely source of mucous Mediastinal lymphadenopathy, possibly reactive Bilateral thyroid nodules can be evaluated with nonemergent thyroid ultrasound This document has been electronically signed by: Panchito Ramirez MD on 02/13/2025 21:54:35
--- NOTE | ~2025-02-13 | CT_ITS ---
CLINICAL HISTORY: abd pain CT abdomen and pelvis with contrast Comparison: CT/NE/SR - CT ABDOMEN PELVIS WO IV CON - 07/21/24 17:07 EST Findings: Respiratory motion limits evaluation. See same day CT of the chest for more details. Status post cholecystectomy. 1 cm left adrenal nodule. Solid organs otherwise unremarkable. No urolithiasis. No bowel obstruction, pneumoperitoneum, or pneumatosis. Circumferential wall thickening of the perirectal fascia, as well as the rectal wall with surrounding fat stranding, which can be seen in proctitis. No drainable abscess. Normal appendix. Pelvic contents unremarkable. The bones are intact. IMPRESSION: Respiratory motion limits evaluation. Likely proctitis, as above. No drainable abscess. This document has been electronically signed by: Panchito Ramirez MD on 02/13/2025 22:04:15
--- NOTE | ~2025-02-13 | XR_ITS ---
CLINICAL HISTORY: sob 1 view chest x-ray Comparison: CR - XR CHEST 1V - 11/03/24 21:11 EDT Findings: Prominent interstitial lung markings. Small bilateral pleural effusion. There is fluid tracking along the right side of the fissure. There is enlargement of the cardiopericardial silhouette. Dialysis catheter. No acute fracture. IMPRESSION: Pulmonary vascular congestion. New fluid tracking along the right side fissure. Small pleural effusion. This document has been electronically signed by: Jennifer Reyes MD on 02/13/2025 17:48:54
--- NOTE | ~2025-02-13 | XR_ITS ---
EXAMINATION: XR ABDOMEN 1 VIEW (KUB) HISTORY: vomiting, abdominal pain COMPARISON: Comparison is made with the prior examination dated 10/08/2023. FINDINGS: A single supine view of the abdomen is submitted. The bowel gas pattern is unremarkable, without evidence of mechanical obstruction. There is a large amount of stool throughout the colon. No abnormal calcifications are identified. There are no abnormal soft tissue masses. The bones are intact. XR/XR KUB IMPRESSION: Large amount of stool throughout the colon. Electronically signed by: Ton Hurtado MD 02/18/2025 11:50 AM EDT
--- OUTSIDE RECORDS SUMMARY | 2025-02-13 13:45 | XMS_ITS | Encounter Summary ---
Author Organization [employer] Address [address] [place] [address] Care Team Providers Care Salesperson Toy Trains And Accessories Name Role Phone Melissa Jefferson MD Primary Care Provider [phone] Encounter Details Date Type Department Care Team ([facility] st Contact Info) Description 02/13/2025 1:45 PM EDT Office Visit [facility] [address] [place] [address] Melissa Jefferson MD [address] [place] [address] Acute respiratory failure, unspecified whether with hypoxia or hypercapnia (CMS/HCC) (Primary Dx); Dietary counseling; Exercise counseling; Chronic obstructive pulmonary disease, unspecified COPD type (CMS/HCC) Social History Tobacco Use Types Packs/Day Years Used Date Smoking Tobacco: Some Days Cigarettes 0.3 1.7 Started: 2023 Passive Smoke Exposure: Current Smokeless [...] Sign Reading Time Taken Comments Blood Pressure 140/86 02/13/2025 1:41 PM EDT Pulse 90 02/13/2025 1:41 PM EDT Temperature 36.6 C (97.8 F) 02/13/2025 1:41 PM EDT Respiratory Rate 21 02/13/2025 1:41 PM EDT Oxygen Saturation 85% 02/13/2025 1:41 PM EDT Inhaled Oxygen Concentration - - Weight 56.7 kg (125 lb) 02/13/2025 1:41 PM EDT Height 154.9 cm (5' 1 ) 02/13/2025 1:41 PM EDT Body Mass Index 23.62 02/13/2025 1:41 PM EDT documented in this encounter Plan of Treatment Upcoming Encounters Date Type Department Care Team (Late st Contact Info) Description 02/23/2025 2:00 PM EDT Office Visit [facility] [address] [place] [address] Jaja Mckeon, OD [address] [place] [address] 03/13/2025 10:00 AM EDT Office Visit [facility] [address] [place] [address] Messi Mccollum MD [address] [place] [address] documented as of this encounter Goals Goal Patient Goal Type Associated Problems Recent Progress Patient-Stated? Author Check and record your blood sugars as directed Blood Pressure No Jimbo Burris PharmD Short-term: Promote adherence to treatment regimen General No Jimbo Burris PharmD Take your medication every day Lifestyle No Jimbo Burris PharmD documented as of this encounter Visit Diagnoses Diagnosis Acute respiratory failure, unspecified whether with hypoxia or hypercapnia (CMS/HCC)- Primary Dietary counseling Dietary surveillance and counseling Exercise counseling Chronic obstructive pulmonary disease, unspecified COPD type (CMS/HCC) documented in this encounter Additional Health Concerns Assessment Noted Time PHQ-9 Depression Total Score: 13 09/03/ 025 3:05 PM EDT documented as of this encounter Care Teams Salesperson Toy Trains And Accessories Relationship Specialty Start Date End Date Melissa Jefferson MD [address] [place] [address] PCP - General Family Medicine 12/04/24 Postabon 04/08/22 Tj Larose MD Welding Machine Operator Friction Nephrology 04/10/24 documented as of this encounter
[2025-02-13 14:59] LABS: Glucose, Whole Blood 154 mg/dL (60-115)
--- NOTE | 2025-02-13 15:15 | PC.NURSE ---
Dressing to prolapsed rectum was just a pull-up brief. Pt currenty on a pad and otherwise open to air. Rectal pain is her only pain complaint. Takes no pain medication at home. Pt is Nepali speaker with limited Persian.
--- NOTE | 2025-02-13 15:20 | PC.NURSE ---
Uses walker or cane at home. No recent falls
--- NOTE | 2025-02-13 15:23 | PC.NURSE ---
Rim Fire Priming Operator Jessica assisted with settling patient. She normally helps patient at home during the evening. She left her phone number if we need her. [phone]
--- NOTE | 2025-02-13 16:54 | ECG_ITS ---
Test Reason : SOB Blood Pressure : */* mmHG Vent. Rate : 90 BPM Atrial Rate : 90 BPM P-R Int : 190 ms QRS Dur : 92 ms QT Int : 370 ms P-R-T Axes : 67 -6 75 degrees QTcB Int : 452 ms Normal sinus rhythm Biatrial enlargement Left ventricular hypertrophy with repolarization abnormality ( Sokolow-Burton , Negley product ) Abnormal ECG When compared with ECG of 03-Nov-2024 23:01, No significant change was found Referred By: Mirna Betancourt Electronically Signed By: Charan Hankins
--- NOTE | 2025-02-13 17:16 | ED.SOB ---
HPI - SOB/Dyspnea General Chief Complaint: Dyspnea Stated Complaint: SOB X 2 WKS,70%RA,95% ON 4L PER EMS Time Seen by Provider: 02/13/25 15:59 History of Present Illness HPI Narrative: 69-year-old female with a history of end-stage renal disease currently on dialysis. Baseline not on oxygen. Presents today with having increasing shortness of breath. History of heart failure with preserved EF. History of end-stage renal disease patient claims she actually got dialyzed yesterday. She is a Sunday person. Got dialysis on . Patient complaining of coughing shortness of breath was seen at the clinic was noted to have a low oxygenation of 70% on room air. Placed on 4 L of oxygen satting 96% sent in for further evaluation. Of note patient also complaining of rectal pain. Has a history of rectal prolapse. Related Data Home Medications ?Medication ?Instructions ?Recorded ?Confirmed melatonin 5 mg tablet 5 mg PO BEDTIME PRN Sleep 04/15/21 11/10/24 pantoprazole 40 mg tablet,delayed 40 mg PO DAILY@0630 04/15/21 11/10/24 release aspirin 81 mg tablet,delayed 1 tab PO DAILY 10/11/21 11/10/24 release albuterol sulfate 90 mcg/actuation 2 puff inhalation Q4H PRN wheezing 01/31/22 11/10/24 aerosol inhaler (Ventolin HFA) albuterol sulfate 2.5 mg/3 mL 1 amp inhalation Q6H PRN Shortness 05/08/22 11/10/24 (0.083 %) solution for nebulization Of Breath isosorbide dinitrate 30 mg tablet 30 mg PO TID 07/10/22 11/10/24 calcium acetate(phosphat bind) 667 1,334 mg PO TIDWM 03/13/23 11/10/24 mg capsule lactulose 10 gram/15 mL oral 10 g PO DAILY PRN constipation 03/13/23 11/10/24 solution mirtazapine 15 mg tablet 15 mg PO BEDTIME 03/13/23 11/10/24 carvedilol 25 mg tablet 25 mg PO BID 01/28/24 11/10/24 amlodipine 10 mg tablet 10 mg PO DAILY 04/19/24 11/10/24 buprenorphine 12 mg-naloxone 3 mg 1 film sublingual DAILY 04/19/24 11/10/24 sublingual film glucose 4 gram chewable tablet 16 g PO Q15M PRN hypoglycemia 04/19/24 11/10/24 sodium zirconium cyclosilicate 10 10 g PO MOWEFR@0900 04/19/24 11/10/24 gram oral powder packet (Lokelma) vitamin B comp no.3-folic acid 1 1 tab PO DAILY 04/19/24 11/10/24 mg-vit C 60 mg-biotin 300 mcg tablet ([facility]) clonidine HCl 0.1 mg tablet 0.1 mg PO TID 07/21/24 11/10/24 diclofenac sodium 1 % topical gel 2 g topical BID PRN Pain 07/21/24 11/10/24 ondansetron HCl 4 mg tablet 4 mg PO Q12H PRN nausea/vomiting 07/21/24 11/10/24 trazodone 100 mg tablet 100 mg PO BEDTIME PRN insomnia 07/21/24 11/10/24 acetaminophen 500 mg tablet 500 mg PO Q8H PRN pain 07/22/24 11/10/24 docusate sodium 100 mg capsule 100 mg PO BID PRN Y 07/22/24 11/10/24 (Colace) losartan 50 mg tablet 50 mg PO DAILY 11/10/24 11/10/24 Previous Rx's ?Medication ?Instructions ?Recorded hydralazine 50 mg tablet 50 mg PO TID #270 tabs 04/24/24 Allergies Allergy/AdvReac Type Severity Reaction Status Date / Time No Known Allergies Allergy Verified 02/13/25 15:09 Review of Systems Review of Systems: + SOB [facility] Past Medical History Attestation statement: The following information was validated with the patient. Medical History Chronic renal failure Essential hypertension ESRD (end stage renal disease) on dialysis Diabetes mellitus Hemorrhoids that prolapse with straining, but retract spontaneously Hemorrhoids with complication ESRD on dialysis Delirium Sepsis Tachycardia Leukocytosis Fever End stage chronic kidney disease Congestive heart failure with left ventricular dysfunction ESRD (end stage renal disease) Hypertension Pulmonary congestion COVID-19 virus infection Asthma with COPD with exacerbation COVID ESRD (end stage renal disease) Hypertrophic cardiomyopathy Acute exacerbation of chronic obstructive pulmonary disease (COPD) Heart failure with preserved ejection fraction Constipation End stage renal disease on dialysis Ascites Anasarca Ischemic colitis Acute GI bleeding Anemia Dialysis patient, noncompliant Anemia in chronic kidney disease Opioid withdrawal Essential hypertension Surgical History No pertinent past surgical history Family History Family History Other Hypertension Social History Social History Household Members: Family Housing: Apartment Do you presently have visiting nurse or other home services: Yes (vna) Alcohol intake: never Comment: pt in dialysis at this time. Patient Tobacco Use Status: Current everyday Tobacco user Tobacco use type: Cigarette Cigarette Packs Per Day: 2 Cigarettes Per Day: 1 Years Smoked: 50 +/- Smoked in Last 30 Days: Yes e-Cigarette/Vaping Use: Never Used Second Hand Smoke Exposure: No Use of substances other than those prescribed or required for medical reasons: No Substance Use Type: Marijuana Advance Directives: Yes Advance Directives on File: Yes Advance Directives Date on File: 04/19/23 service: No Current occupational status: disabled Physical Exam Exam: Exam: Appearance: Sick appearing elderly female looks older than stated age short of breath. Eyes: Pupils equal, round and reactive to light. ENT: Pharynx normal. Neck: Normal inspection. Neck supple. No lymph nodes noted. No crepitus CVS: Normal heart rate and rhythm. Pulses normal. Normal S1 and S2 Respiratory: Diminished breath sounds bilaterally increased work of breathing Abdomen: Soft and nontender. No rigidity. No distention. good BS x4 Rectal exam was done with tech present. There is significant rectal prolapse noted. Skin: Skin warm and dry. Normal skin color. Normal skin turgor. Extremities: 2+ edema. Neurovascular intact to all extremities. No Lacerations. No Rash Neuro: Oriented X 3. No motor deficit. No sensory deficit. Moving all extermities. No slurred speech Vital Signs: Vital Signs: Last Vital Signs Temp 97.8 F 02/13/25 17:45 Pulse 86 02/13/25 17:45 Resp 22 H 02/13/25 17:45 BP 190/83 H 02/13/25 17:58 Pulse Ox 94 02/13/25 17:45 O2 Del Method Nasal Cannula 02/13/25 17:45 O2 Flow Rate 4 02/13/25 17:45 Oxygen Flow Rate 4 02/13/25 15:02 BMI result Body Mass Index 26.7 Medications Administered Discontinued Medications Generic Name Dose Route Start Last Admin Trade Name Freq PRN Reason Stop Dose Admin Furosemide 100 mg 02/13/25 17:47 02/13/25 17:58 Furosemide 100 Mg/10 Ml Vial IVPUSH 02/13/25 17:48 100 mg ONCE ONE Administration Protocol Hydromorphone HCl 0.5 mg 02/13/25 18:52 02/13/25 19:17 Hydromorphone Hcl 0.5 Mg/0.5 Ml Syringe IVPUSH 02/13/25 18:53 0.5 mg ONCE ONE Administration Protocol Cefepime HCl 1 gm/ Sodium 50 mls @ 100 mls/hr 02/13/25 16:54 02/13/25 18:36 Chloride IV 02/13/25 17:23 Infused ONCE ONE Infusion Vancomycin HCl 1,500 mg/ 500 mls @ 333.333 mls/hr 02/13/25 18:00 02/13/25 18:27 Sodium Chloride IV 02/13/25 19:29 333.33 mls/hr ONCE ONE Administration Nitroglycerin 0.5 inch 02/13/25 17:47 02/13/25 17:56 Nitroglycerin 2 % Oint 1 Gm Packet TRANSDERMA 02/13/25 17:48 0.5 inch ONCE ONE Administration Medical Decision Making Medical Decision Making MDM Narrative: Positive shortness of breath coughing upper respiratory symptoms. Labs ordered. Significant hypoxia. Cultures were obtained. Cefepime and vancomycin was ordered. Can not give 30 cc/kilos as patient has end-stage renal disease is on dialysis. Blood cultures were obtained. In addition patient has significant rectal prolapse. We put some sugar on patient's rectum cover with saline. Will attempt to reduce the prolapse. Culture obtained. Patient's electrolytes consistent with end-stage renal disease. Lactate was 0.6. There is no evidence for severe sepsis. White count is normal. Hemoglobin 9.5 is baseline. ABG showed a pH of 7.43 with a pCO2 48. Creatinine elevated consistent with end-stage renal disease. Troponin elevated consistent with end-stage renal. Patient to be admitted. In stable condition. Differential Diagnosis Differential Diagnoses: The differential diagnosis associated with the presentation includes Pneumonia, PE, congestive heart failure Admission/Observation Consideration of admission/observation: Escalation of care including admission/observation considered Consult Healthcare Provider Management of the patient was discussed with: Frame Operator (Hospitalist, Nephrology) Lab Data MDM Lab Attestation statement: I reviewed the patient's lab results. 02/13/25 17:47 02/13/25 17:47 Labs: Lab Results 02/13/25 02/13/25 02/13/25 Range/Units 14:55 17:47 17:48 WBC 8.4 (4.8-10.8) X10*3/uL RBC 2.94 L D (4.20-5.50) X10*6/uL Hgb 9.5 L D (12.0-16.0) g/dl Hct 28.9 L D (37.0-47.0) % MCV 98.3 H (80.0-98.0) fL MCH 32.3 (27.0-33.0) pg MCHC 32.9 (31.0-35.0) g/dl RDW 14.0 (11.0-16.0) % Plt Count 244 D (160-400) X10*3/uL MPV 9.5 (9.4-12.3) fL Immature Gran % (Auto) 0.4 (0.0-0.4) % Neut % (Auto) 70.6 (45-73) % Lymph % (Auto) 13.6 L (20-40) % [place] % (Auto) 12.0 H (2-11) % Eos % (Auto) 3.0 (0-4) % Baso % (Auto) 0.4 (0-2) % Lymph # (Auto) 1.2 (1.2-4.9) X10*3/uL [place] # (Auto) 1.0 (0.1-1.2) X10*3/uL Eos # (Auto) 0.3 (0.0-0.4) X10*3/uL Baso # (Auto) 0.0 (0.0-0.2) X10*3/uL Abs Immat Gran (auto) 0.03 (0.00-0.03) X10*3/uL Absolute Neuts (auto) 6.0 (2.0-8.3) x10*3/uL Absolute Nucleated RBC 0.000 (0.0-0.012) X10*3/uL Nucleated RBC % (auto) 0.0 (0.0-0.2) /100WBC VBG pH (7.32-7.43) VBG pCO2 mmHg VBG pO2 mmHg VBG HCO3 (22-26) mmol/L VBG O2 Saturation % VBG Base Excess mmol/L Sodium 138 (135-145) mmol/L Potassium 3.8 D (3.3-5.1) mmol/L Chloride 94 L (96-108) mmol/L Carbon Dioxide 30 H (22-29) mmol/L Anion Gap 18 (12-20) BUN 41 H (9-16) mg/dL Creatinine 5.28 H* (0.5-1.4) mg/dL Estim Creat Clear Calc 8.7 Estimated GFR 8 POC Glucose 154 H (60-115) mg/dL Random Glucose 127 H (60-115) mg/dL Lactic Acid 0.6 (0.5-2.0) mmol/L Calcium 9.0 (8.4-10.2) mg/dL Phosphorus 4.7 H (2.7-4.5) mg/dL Magnesium 2.3 (1.6-2.6) mg/dL Total Bilirubin 0.4 (0.0-1.0) mg/dL Direct Bilirubin 0.1 (0.0-0.5) mg/dL AST 75 H (5-31) U/L ALT 27 (0-31) U/L Alkaline Phosphatase 156 H (39-117) U/L Troponin I High Sens 81.8 H* D (<3.5-17.0) ng/L NT-Pro-B Natriuret Pep 91504.8 H (<300) pg/mL Total Protein 7.8 (6.5-8.0) g/dL Albumin 4.2 (3.5-5.0) g/dL Lipase 9 (8-78) U/L Influenza Type A (PCR) NEGATIVE (Negative) Influenza Type B (PCR) NEGATIVE (Negative) RSV RNA Qual (PCR) NEGATIVE (Negative) SARS-CoV-2 RNA (RT-PCR) NEGATIVE (Negative) 02/13/25 Range/Units 17:54 WBC (4.8-10.8) X10*3/uL RBC (4.20-5.50) X10*6/uL Hgb (12.0-16.0) g/dl Hct (37.0-47.0) % MCV (80.0-98.0) fL MCH (27.0-33.0) pg MCHC (31.0-35.0) g/dl RDW (11.0-16.0) % Plt Count (160-400) X10*3/uL MPV (9.4-12.3) fL Immature Gran % (Auto) (0.0-0.4) % Neut % (Auto) (45-73) % Lymph % (Auto) (20-40) % [place] % (Auto) (2-11) % Eos % (Auto) (0-4) % Baso % (Auto) (0-2) % Lymph # (Auto) (1.2-4.9) X10*3/uL [place] # (Auto) (0.1-1.2) X10*3/uL Eos # (Auto) (0.0-0.4) X10*3/uL Baso # (Auto) (0.0-0.2) X10*3/uL Abs Immat Gran (auto) (0.00-0.03) X10*3/uL Absolute Neuts (auto) (2.0-8.3) x10*3/uL Absolute Nucleated RBC (0.0-0.012) X10*3/uL Nucleated RBC % (auto) (0.0-0.2) /100WBC VBG pH 7.43 (7.32-7.43) VBG pCO2 48 mmHg VBG pO2 85 mmHg VBG HCO3 32 H (22-26) mmol/L VBG O2 Saturation 97.0 % VBG Base Excess 7.4 mmol/L Sodium (135-145) mmol/L Potassium (3.3-5.1) mmol/L Chloride (96-108) mmol/L Carbon Dioxide (22-29) mmol/L Anion Gap (12-20) BUN (9-16) mg/dL Creatinine (0.5-1.4) mg/dL Estim Creat Clear Calc Estimated GFR POC Glucose (60-115) mg/dL Random Glucose (60-115) mg/dL Lactic Acid (0.5-2.0) mmol/L Calcium (8.4-10.2) mg/dL Phosphorus (2.7-4.5) mg/dL Magnesium (1.6-2.6) mg/dL Total Bilirubin (0.0-1.0) mg/dL Direct Bilirubin (0.0-0.5) mg/dL AST (5-31) U/L ALT (0-31) U/L Alkaline Phosphatase (39-117) U/L Troponin I High Sens (<3.5-17.0) ng/L NT-Pro-B Natriuret Pep (<300) pg/mL Total Protein (6.5-8.0) g/dL Albumin (3.5-5.0) g/dL Lipase (8-78) U/L Influenza Type A (PCR) (Negative) Influenza Type B (PCR) (Negative) RSV RNA Qual (PCR) (Negative) SARS-CoV-2 RNA (RT-PCR) (Negative) Independent Interpretation I performed an independent interpretation of an: EKG (Sinus heart rate is 80 FL QRS QTC normal no acute ST segment elevation) and Plain X-Ray (Question pleural effusion noted on x-ray) Radiology Impression Discussion of test interpretation with radiology: I have reviewed the radiologist's reading. External Record Review External record reviewed: Inpatient record Tests considered The following testing was considered but not selected: CT angio of the chest Chronic Conditions Patient?s care impacted by: Diabetes and Hypertension End-stage renal disease Social Determinants Patient?s care significantly limited by Social Determinants of Health including: Problems related to primary support group Procedures Procedure Narrative Procedure Narrative: Patient has significant rectal prolapse. We placed sugar on the rectum. Cover with saline. Went back in 10 minutes later using constant pressure we were able to reduce the prolapsed rectum. The procedure was done with nurse Doss present. There was no complication. The rectum seems to be reduced. There is no acute bleeding noted. Critical Care Time Critical Care Time Critical Care Time: Yes Total Critical Care Time: 40 Attestation: I have personally provided 40 minutes of critical care time exclusive of time spent on separately billable procedures. ?Time includes review of lab data, radiology results, discussion with consultants, and monitoring for potential decompensation. ?Interventions were performed as documented above Discharge Plan Discharge Clinical Impression: Shortness of breath Patient Disposition: Admitted As Inpatient Print Language: Turkish
[2025-02-13 17:55] LABS: MANUAL DIFF FLAG NO
[2025-02-13] MEDS: Nitroglycerin 2 % Oint 1 GM Packet 0.5 INCH TRANSDERMA (17:56)
[2025-02-13 17:58] LABS: VBG HCO3 32 mmol/L (22-26); VBG O2 % Saturation 97.0 %
[2025-02-13] MEDS: Furosemide 100 MG/10 ML VIAL IVPUSH (17:58)
[2025-02-13 17:59] LABS: Hematocrit 28.9 % (37.0-47.0); Hemoglobin 9.5 g/dl (12.0-16.0); Imm Gran Abs Auto 0.03 X10*3/uL (0.00-0.03); Imm Gran Pct Auto 0.4 % (0.0-0.4); Lymphocytes Absolute Auto 1.2 X10*3/uL (1.2-4.9); Mean Corpuscular HGB Conc 32.9 g/dl (31.0-35.0); Mean Corpuscular Hemoglobin 32.3 pg (27.0-33.0); Mean Corpuscular Volume 98.3 fL (80.0-98.0); NRBC Abs Auto 0.000 X10*3/uL (0.0-0.012); NRBC Pct Auto 0.0 /100WBC (0.0-0.2); Platelet Count 244 X10*3/uL (160-400); Red Blood Count 2.94 X10*6/uL (4.20-5.50); White Blood Count 8.4 X10*3/uL (4.8-10.8)
--- OUTSIDE RECORDS SUMMARY | 2025-02-13 18:08 | XMS_ITS | Encounter Summary ---
Author Organization [employer] Address [address] [facility] [address] [place] [address] Care Team Providers Care Package Delivery Room Service Runner Name Role Phone Sammy Reilly MD Primary Care Provide r Melissa Jefferson MD Primary Care Provider [phone] Reason for Visit * Reason Comments Med Refill Encounter Details Date Type Department Care Team ([facility] st Contact Info) Description 04/25/2023 Refill [facility] [address] [place], [place] [phone] Neptali Coles MD [address] [place], [place] [phone] Social History Tobacco Use Types Packs/Day Years [...] Description 02/23/2025 2:00 PM EDT Office Visit [facility] [address] [place] [address] Jaja Mckeon, OD [address] [place] [address] 03/13/2025 10:00 AM EDT Office Visit [facility] [address] [place] [address] Messi Mccollum MD [address] [place] [address] documented as of this encounter Goals Goal [...] documented as of this encounter Care Teams Package Delivery Room Service Runner Relationship Specialty Start Date End Date Sammy Reilly MD [address] [place] [address] PCP - General Internal Medicine 12/23/13 12/03/24 Melissa Jefferson MD [address] [place] [id number] PCP - General Family Medicine 12/04/24 [facility] 04/08/22 Tj Larose MD Special Procedures Nurse Nephrology 04/10/24 documented as of this encounter
--- OUTSIDE RECORDS SUMMARY | 2025-02-13 18:08 | XMS_ITS | Encounter Summary ---
Author Organization [employer] Address [address] [facility] 7[address] [place] [address] Care Team Providers Care Pipe Fitter Apprentice Name Role Phone Sammy Reilly MD Primary Care Provide r Melissa Jefferson MD Primary Care Provider [phone] Reason for Visit * Reason Onset Date Comments Appointment Request 05/24/2023 Encounter Details Date Type Department Care Team ([facility] st Contact Info) Description 05/24/2023 Telephone [facility] [address] [place], [place] [phone] Sammy Reilly MD [address] [place] [address] Appointment Request Social History Tobacco Use Types Packs/Day Years Used Date Smoking Tobacco: Every Day Cigarettes Passive Smoke Exposure: Current Smokeless Tobacco: Never Alcohol Use Standard Drinks/Week Comments Not Currently 0 (1 standard drink = 0.6 oz pur e alcohol) Depression Answer Date Recorded Patient Health Questionnaire-9 Score 11 10/03/2022 Housing Stability Answer Date Recorded What is your housing situation today? I have johnnienohemi paredes 03/05/[address] you [...] 05/24/2023 11:25 AM EST Tc from patients childcare aide calling to request a follow appt with the patients PCP there is no concerns as of right now documented in this encounter Plan of Treatment Upcoming Encounters Date Type Department Care Team (Late st Contact Info) Description 02/23/2025 2:00 PM EDT Office Visit [facility] [address] [place] [address] Mike, Jaja, OD [address] [place] [address] 03/13/2025 10:00 AM EDT Office Visit [facility] [address] [place] [address] Messi Mccollum MD [address] [place] [address] documented as of this encounter Goals Goal [...] documented as of this encounter Care Teams Pipe Fitter Apprentice Relationship Specialty Start Date End Date Sammy Reilly MD [address] [place] [address] PCP - General Internal Medicine 12/23/13 12/03/24 Melissa Jefferson MD [address] [place] [address] PCP - General Family Medicine 12/04/24 authorGEN 04/08/22 Tj Larose MD Fork Lift Mechanic Nephrology 04/10/24 documented as of this encounter
--- OUTSIDE RECORDS SUMMARY | 2025-02-13 18:08 | XMS_ITS | Encounter Summary ---
Author Organization [employer] Address [address] [facility] 7t [place] [address] Care Team Providers Care Manager Career Name Role Phone Sammy Reilly MD Primary Care Provide r Melissa Jefferson MD Primary Care Provider [phone] Reason for Visit * Reason Comments Med Refill Encounter Details Date Type Department Care Team (Late st Contact Info) Description 10/21/2023 Refill [facility] [address] [place], [place] [phone] Sammy Reilly MD [address] [employer], [place] [phone] Chronic obstructive pulmonary disease, unspecified COPD type [...] the past 12 months, has t he [employer], gas, oil or water company threatened to [...] Description 02/23/2025 2:00 PM EDT Office Visit [facility] [address] [place] [address] Mike, Jaja, OD [address] [place] [address] 03/13/2025 10:00 AM EDT Office Visit [facility] [address] [place] [address] Messi Mccollum MD [address] [place] [address] documented as of this encounter Goals Goal [...] as of this encounter Care Teams Manager Career Relationship Specialty Start Date End Date Sammy Reilly MD [address] [place] [address] PCP - General Internal Medicine 12/23/13 12/03/24 Melissa Jefferson MD [address] [place] [address] PCP - General Family Medicine 12/04/24 [employer] 04/08/22 Tj Larose MD Train Operations Manager Nephrology 04/10/24 documented as of this encounter
--- OUTSIDE RECORDS SUMMARY | 2025-02-13 18:08 | XMS_ITS | Encounter Summary ---
Author Organization [employer] Address [address] [facility] 7t [place] [address] Care Team Providers Care Counter Weigher Name Role Phone Sammy Reilly MD Primary Care Provide r Melissa Jefferson MD Primary Care Provider Encounter Details Date Type Department Care Team (Late st Contact Info) Description 05/08/2022 Orders Only [facility] [address] [place] [address] Swetha Ribera LPN Social History Tobacco Use [...] Description 02/23/2025 2:00 PM EDT Office Visit [facility] [address] [place] [address] Jaja Mckeon OD [address] [place] [address] 03/13/2025 10:00 AM EDT Office Visit [facility] [address] [place] [address] Messi Mccollum MD [address] [place], [place] [phone] documented as of this encounter Visit Diagnoses Not on filedocumented in this encounter Care Teams Counter Weigher Relationship Specialty Start Date End Date Sammy Reilly MD [address] [place] [address] [phone] PCP - General Internal Medicine 12/23/13 12/03/24 Melissa Jefferson MD [address] [place] [phone] PCP - General Family Medicine 12/04/24 [facility] 04/08/22 Tj Larose MD Field Party Manager Nephrology 04/10/24 documented as of this encounter
--- OUTSIDE RECORDS SUMMARY | 2025-02-13 18:08 | XMS_ITS | Encounter Summary ---
Author Organization [employer] Address [address] [facility] 7t [place] [address] Care Team Providers Care Trimming Inspector Name Role Phone Sammy Reilly MD Primary Care Provide r Melissa Jefferson MD Primary Care Provider [phone] Reason for Visit * Reason Comments Med Refill Encounter Details Date Type Department Care Team ([facility] Contact Info) Description 05/30/2022 Refill [facility] [address] [place] [address] Sammy Reilly MD [address] [place], [place] [phone] Social History Tobacco Use Types Packs/Day Years [...] Upcoming Encounters Date Type Department Care Team ([facility] Contact Info) Description 02/23/2025 2:00 PM EDT Office Visit [facility] [address] [place], [place] [phone] Luis M Mckeonn, OD [address] [place], [place] [phone] 03/13/2025 10:00 AM EDT Office Visit [facility] [address] [place] [address] Messi Mccollum MD [address] [place], [place] [phone] documented as of this encounter Visit Diagnoses Not on filedocumented in this encounter Care Teams Trimming Inspector Relationship Specialty Start Date End Date Sammy Reilly MD [address] [place] [address] [phone] PCP - General Internal Medicine 12/23/13 12/03/24 Melissa Jefferson MD [address] [place] [address] [phone] PCP - General Family Medicine 12/04/24 [email or web address] 04/08/22 Tj Larose MD Sales Center Associate Nephrology 04/10/24 documented as of this encounter
--- OUTSIDE RECORDS SUMMARY | 2025-02-13 18:08 | XMS_ITS | Encounter Summary ---
Author Organization [employer] Address [address] [facility] 7t [place] [address] Care Team Providers Care Quebracho Tanner Name Role Phone Melissa Jefferson MD Primary Care Provider [phone] Reason for Visit * Reason Comments Med Refill Encounter Details Date Type Department Care Team (Late st Contact Info) Description 12/11/2024 Refill [facility] [address] [place] [address] Nolberto Cates MD [address] [place] [address] Uncomplicated opioid dependence (CMS/HCC) Social History Tobacco [...] the past 12 months, has t he [employer], gas, oil or water [employer] threatened to shut off services in your [...] Description 02/23/2025 2:00 PM EDT Office Visit [facility] [address] [place] [address] Mike, Jaja, OD [address] [place] [address] 03/13/2025 10:00 AM EDT Office Visit [facility] [address] [place] [address] Messi Mccollum MD [address] [place] [address] documented as of this encounter Goals Goal [...] documented as of this encounter Care Teams Quebracho Tanner Relationship Specialty Start Date End Date Melissa Jefferson MD [address] [place] [address] PCP - General Family Medicine 12/04/24 [employer] 04/08/22 Tj Larose MD Laceworker Nephrology 04/10/24 documented as of this encounter
--- OUTSIDE RECORDS SUMMARY | 2025-02-13 18:08 | XMS_ITS | Encounter Summary ---
Author Organization [facility] Address [address] [place] [address] Phone Care Team Providers Care Coffee Maker Servicer Name Role Phone Unavailable Primary Care Provider Unavailabl e Encounter Details Date Type Department Care Team (Late st Contact Info) Description 11/10/2021 Office Communication [facility] [address] [place] [address] Sigrid Hollingsworth, CELIO Social History [...]
--- OUTSIDE RECORDS SUMMARY | 2025-02-13 18:08 | XMS_ITS | Encounter Summary ---
Author Organization [employer] Address 75 [facility] 7t h Floor [address] Care Team Providers Care Medical Radiation Dosimetrist Name Role Phone Sammy Reilly MD Primary Care Provide r Melissa Jefferson MD Primary Care Provider [phone] Reason for Visit * Reason Comments Med Refill Encounter Details Date Type Department Care Team (Late st Contact Info) Description 05/05/2022 Refill [facility] [address] [place] [address] Margarita Rob, ANP [address] [place] [address] Chronic obstructive pulmonary disease, unspecified COPD type [...] Description 02/23/2025 2:00 PM EDT Office Visit [facility] [address] [place] [address] Mike, Jaja, OD 230 [place] [address] 03/13/2025 10:00 AM EDT Office Visit [facility] [address] [place] [address] Messi Mccollum MD 230 [place] [address] documented as of this encounter Visit Diagnoses Diagnosis Chronic obstructive pulmonary disease, unspecified COPD type (CMS/HCC)- Primary documented in this encounter Care Teams Medical Radiation Dosimetrist Relationship Specialty Start Date End Date Sammy Reilly MD 230 [place] [address] PCP - General Internal Medicine 12/23/13 12/03/24 Melissa Jefferson MD 230 [place] [address] PCP - General Family Medicine 12/04/24 [employer] 04/08/22 Tj Larose MD Commodity Manager Nephrology 04/10/24 documented as of this encounter
--- OUTSIDE RECORDS SUMMARY | 2025-02-13 18:08 | XMS_ITS | Encounter Summary ---
Author Organization [employer] Address [address] [facility] [address] 7t [place] [address] Care Team Providers Care Nickel Plater Name Role Phone Sammy Reilly MD Primary Care Provide r Melissa Jefferson MD Primary Care Provider [phone] Encounter Details Date Type Department Care Team (Late st Contact Info) Description 09/26/2024 Orders Only [facility] [address] [place] [address] Jessica Rahman, RN Uncomplicated opioid dependence (CMS/HCC) [...] the past 12 months, has t he [employer], oil or water [employer] threatened to shut off services in your [...] Description 02/23/2025 2:00 PM EDT Office Visit [facility] [address] [place] [address] Mike, Jaja, OD 230 [place] [address] 03/13/2025 10:00 AM EDT Office Visit [facility] [address] [place] [address] Messi Mccollum MD 230 [place] [address] documented as of this encounter Goals Goal [...] documented as of this encounter Care Teams Nickel Plater Relationship Specialty Start Date End Date Sammy Reilly MD 230 [place] [address] PCP - General Internal Medicine 12/23/13 12/03/24 Melissa Jefferson MD 230 [place] [address] PCP - General Family Medicine 12/04/24 [employer] 04/08/22 Tj Larose MD Laborer Vegetable Farm Nephrology 04/10/24 documented as of this encounter
--- OUTSIDE RECORDS SUMMARY | 2025-02-13 18:08 | XMS_ITS | Encounter Summary ---
Author Organization [employer] Address [address] [facility] [address] 7t [place] [address] Care Team Providers Care Head Usher Name Role Phone Sammy Reilly MD Primary Care Provide r Melissa Jefferson MD Primary Care Provider [phone] Reason for Visit * Reason Comments Med Refill Encounter Details Date Type Department Care Team (Late st Contact Info) Description 06/16/2024 Refill [facility] 230 [place] [address] Messi Mccollum MD [address] [place], [place] [phone] Uncomplicated opioid dependence (CMS/HCC) Social History Tobacco [...] Description 02/23/2025 2:00 PM EDT Office Visit [facility] [address] [place] [address] Mike, Jaja, OD 230 [place] [address] 03/13/2025 10:00 AM EDT Office Visit [facility] [address] [place] [address] Messi Mccollum MD [address] [place] [address] documented as of this encounter Goals Goal [...] documented as of this encounter Care Teams Head Usher Relationship Specialty Start Date End Date Sammy Reilly MD [address] [place] [address] PCP - General Internal Medicine 12/23/13 12/03/24 Melissa Jefferson MD [address] [place] [address] PCP - General Family Medicine 12/04/24 [employer] 04/08/22 Tj Larose MD Video Effects Editor Nephrology 04/10/24 documented as of this encounter
--- OUTSIDE RECORDS SUMMARY | 2025-02-13 18:08 | XMS_ITS | Encounter Summary ---
Author Organization [employer] Address 75 [facility] 7t [place] [address] Care Team Providers Care Coat Ironer Hand Name Role Phone Melissa Jefferson MD Primary Care Provider [phone] Reason for Visit * Reason Onset Date Comments Ambulance transport 02/13/2025 Encounter Details Date Type Department Care Team ([facility] st Contact Info) Description 02/13/2025 Telephone [facility] 230 [place] [address] Melissa Jefferson MD 230 [place] [address] Ambulance transport Social History Tobacco Use Types Packs/Day Years [...] encounter Miscellaneous Notes * Telephone Encounter - Sheri Luis RN - 02/13/2025 2:11 PM EDT Patient presented to appointment w/ MACHINE ICER with Dr. Jefferson. While NIRANJAN obtained VS, it was determined patients O2 was 76% on RA. RN was notified by NIRANJAN. RN responded to room with O2. Patient was started on 1L and provider was called into room to assist. Patients O2 was increased gradually until Sp02 became stabilized (at 6L). Patient also with a rectal prolapse and on dialysis , and Saturdays. PCP requested RN call ambulance for transport to ED. RN called ambulance transport, notified security and FD of ambulance in route. RN printed face sheet and medication list. Ambulance arrived and patient will be transported to [facility]. documented in this encounter Plan of Treatment Upcoming Encounters Date Type Department Care Team (Late st Contact Info) Description 02/23/2025 2:00 PM EDT Office Visit [facility] [address] [place] [address] Jaja Mckeon, OD 230 [place] [address] 03/13/2025 10:00 AM EDT Office Visit [facility] 230 [place] [address] Messi Mccollum MD [address] [place] [address] documented as of this encounter Goals Goal [...] documented as of this encounter Care Teams Coat Ironer Hand Relationship Specialty Start Date End Date Melissa Jefferson MD 230 [place] [address] PCP - General Family Medicine 12/04/24 [employer] 04/08/22 Tj Larose MD Cow Trimmer Nephrology 04/10/24 documented as of this encounter
--- OUTSIDE RECORDS SUMMARY | 2025-02-13 18:08 | XMS_ITS | Encounter Summary ---
Author Organization [employer] Address [address] [facility] [address] 7[address] [place] [address] Care Team Providers Care Inspector And Mender Name Role Phone Sammy Reilly MD Primary Care Provide r Melissa Jefferson MD Primary Care Provider [phone] Encounter Details Date Type Department Care Team (Late st Contact Info) Description 07/28/2024 Orders Only [facility] [address] [place] [address] Provider, MD Willow Social History Tobacco Use [...] Description 02/23/2025 2:00 PM EDT Office Visit [facility] [address] [place] [address] Jaja Mckeon, OD 230 [place] [address] 03/13/2025 10:00 AM EDT Office Visit [facility] [address] [place] [address] Messi Mccollum MD 230 [place] [address] documented as of this encounter Goals Goal [...] documented as of this encounter Care Teams Inspector And Mender Relationship Specialty Start Date End Date Sammy Reilly MD 230 [place] [address] PCP - General Internal Medicine 12/23/13 12/03/24 Melissa Jefferson MD 230 [place] [address] PCP - General Family Medicine 12/04/24 [employer] 04/08/22 Tj Larose MD Assembly Adjuster Nephrology 04/10/24 documented as of this encounter
--- OUTSIDE RECORDS SUMMARY | 2025-02-13 18:08 | XMS_ITS | Encounter Summary ---
Author Organization [employer] Address [address] [facility] [address] 7[address] [place] [address] Care Team Providers Care Dray Truck Driver Name Role Phone Sammy Reilly MD Primary Care Provide r Melissa Jefferson MD Primary Care Provider [phone] Reason for Visit * Reason Comments Med Refill Encounter Details Date Type Department Care Team ([facility] st Contact Info) Description 05/09/2023 Refill [facility] 230 [place] [address] Sammy Reilly MD 230 [place] [address] Social History Tobacco Use Types Packs/Day Years [...] Description 02/23/2025 2:00 PM EDT Office Visit [facility] [address] [place] [address] Jaja Mckeon, OD 230 [place] [address] 03/13/2025 10:00 AM EDT Office Visit [facility] [address] [place] [address] Messi Mccollum MD [address] [place] [address] documented as of this encounter Goals Goal [...] documented as of this encounter Care Teams Dray Truck Driver Relationship Specialty Start Date End Date Sammy Reilly MD [address] [place] [address] PCP - General Internal Medicine 12/23/13 12/03/24 Melissa Jefferson MD 230 [place] [address] PCP - General Family Medicine 12/04/24 [employer] 04/08/22 Tj Larose MD Application Software Engineer Nephrology 04/10/24 documented as of this encounter
--- OUTSIDE RECORDS SUMMARY | 2025-02-13 18:08 | XMS_ITS | Encounter Summary ---
Author Organization [employer] Address 75 [facility] 7t [place] [address] Care Team Providers Care Retouching Operator Name Role Phone Sammy Reilly MD Primary Care Provide r Melissa Jefferson MD Primary Care Provider [phone] Reason for Visit * Reason Comments Med Refill Encounter Details Date Type Department Care Team ([facility] st Contact Info) Description 01/16/2024 Refill [facility] [address] [place] [address] Sammy Reilly MD 230 [place], [place] [phone] Primary hypertension Social History Tobacco Use Types [...] 2:00 PM EDT Office Visit [facility] [address] [place] [address] Mike, Jaja, OD 230 [place] [address] 03/13/2025 10:00 AM EDT Office Visit [facility] [address] [place] [address] Messi Mccollum MD [address] [place] [address] documented as of this encounter Goals Goal [...] documented as of this encounter Care Teams Retouching Operator Relationship Specialty Start Date End Date Sammy Reilly MD [address] [place] [address] PCP - General Internal Medicine 12/23/13 12/03/24 Melissa Jefferson MD [address] [place] [address] PCP - General Family Medicine 12/04/24 [employer] 04/08/22 Tj Larose MD Residential Team Leader Nephrology 04/10/24 documented as of this encounter
--- OUTSIDE RECORDS SUMMARY | 2025-02-13 18:08 | XMS_ITS | Encounter Summary ---
Author Organization [employer] Address [address] [facility] [address] 7t [place] [address] Care Team Providers Care Cryptologist Name Role Phone Sammy Reilly MD Primary Care Provide r Melissa Jefferson MD Primary Care Provider [phone] Reason for Visit * Reason Comments Med Refill Encounter Details Date Type Department Care Team ([facility] st Contact Info) Description 04/20/2023 Refill [facility] 230 [place], [place] [phone] Name, MD Tye 230 [place], [place] [phone] Hypertension secondary to other renal disorders Social [...] enough money to get more: Never True 10/ Transportation Answer Date Recorded In the past [...] Description 02/23/2025 2:00 PM EDT Office Visit [facility] [address] [place] [address] Jaja Mckeon, OD [address] [place] [address] 03/13/2025 10:00 AM EDT Office Visit [facility] [address] [place] [address] Messi Mccollum MD 230 [place] [address] documented as of this encounter Goals Goal [...] documented as of this encounter Care Teams Cryptologist Relationship Specialty Start Date End Date Sammy Reilly MD 230 [place] [address] PCP - General Internal Medicine 12/23/13 12/03/24 Melissa Jefferson MD [address] [place] [address] PCP - General Family Medicine 12/04/24 [employer] 04/08/22 Tj Larose MD Black Powder Glazing Operator Nephrology 04/10/24 documented as of this encounter
--- OUTSIDE RECORDS SUMMARY | 2025-02-13 18:08 | XMS_ITS | Encounter Summary ---
Author Organization [employer] Address 75 [facility] 7t [place] [address] Care Team Providers Care Wind Energy Engineer Name Role Phone Sammy Reilly MD Primary Care Provide r Melissa Jefferson MD Primary Care Provider [phone] Reason for Visit * Reason Comments Med Refill Encounter Details Date Type Department Care Team (Late Contact Info) Description 06/20/2022 Refill [facility] 230 [place] [address] Sammy Reilly MD 230 [place], [place] [phone] Primary hypertension (Primary Dx); Uncomplicated opioid dependence [...] Department Care Team (Late Contact Info) Description 02/23/2025 2:00 PM EDT Office Visit [facility] [address] [place], [place] [phone] Jaja Mckeon, OD 230 [place] [address] 03/13/2025 10:00 AM EDT Office Visit [facility] [address] [place] [address] Messi Mccollum MD [address] [place] [address] documented as of this encounter Visit Diagnoses Diagnosis Primary hypertension- Primary Unspecified essential hypertension Uncomplicated opioid dependence (CMS/HCC) documented in this encounter Care Teams Wind Energy Engineer Relationship Specialty Start Date End Date Sammy Reilly MD [address] [place] [address] PCP - General Internal Medicine 12/23/13 12/03/24 Meilssa Jefferson MD [address] [place] [address] PCP - General Family Medicine 12/04/24 [employer] 04/08/22 Tj Larose MD Nurse Instructor Nephrology 04/10/24 documented as of this encounter
--- OUTSIDE RECORDS SUMMARY | 2025-02-13 18:08 | XMS_ITS | Encounter Summary ---
Author Organization [employer] Address [address] [facility] [address] 7t [place] [address] Care Team Providers Care Service Provider Name Role Phone Sammy Reilly MD Primary Care Provide r Melissa Jefferson MD Primary Care Provider [phone] Reason for Visit * Reason Comments Med Refill Encounter Details Date Type Department Care Team ([facility] st Contact Info) Description 07/31/2024 Refill [facility] [address] [place] [address] Geena Umana CN [address] [place], [place] [phone] Social History Tobacco Use Types Packs/Day Years [...] Office Visit [facility] [address] [place] [address] Mike, Jaja, OD 230 [place] [address] 03/13/2025 10:00 AM EDT Office Visit [facility] [address] [place] [address] Messi Mccollum MD [address] [place] [address] documented as of this encounter Goals Goal [...] documented as of this encounter Care Teams Service Provider Relationship Specialty Start Date End Date Sammy Reilly MD [address] [place] [address] PCP - General Internal Medicine 12/23/13 12/03/24 Melissa Jefferson MD [address] [place] [address] PCP - General Family Medicine 12/04/24 [employer] 04/08/22 Tj Larose MD Medical Advisor Nephrology 04/10/24 documented as of this encounter
--- OUTSIDE RECORDS SUMMARY | 2025-02-13 18:08 | XMS_ITS | Encounter Summary ---
Author Organization [employer] Address 75 [facility] 7t [place] [address] Care Team Providers Care Jd Edwards Consultant Name Role Phone Sammy Reilly MD Primary Care Provide r Melissa Jefferson MD Primary Care Provider [phone] Reason for Visit * Reason Comments Med Refill Encounter Details Date Type Department Care Team (Late Contact Info) Description 02/12/2023 Refill [facility] [address] [place] [address] Lois Garrett MD [address] [place] [address] Hypertension secondary to other renal disorders Social [...] Description 02/23/2025 2:00 PM EDT Office Visit [facility] [address] [place] [address] Jaja Mckeon, OD 230 [place] [address] 03/13/2025 10:00 AM EDT Office Visit [facility] [address] [place] [address] Messi Mccollum MD [address] [place] [address] documented as of this encounter Goals Goal [...] documented as of this encounter Care Teams Jd Edwards Consultant Relationship Specialty Start Date End Date Sammy Reilly MD [address] [place] [address] PCP - General Internal Medicine 12/23/13 12/03/24 Melissa Jefferson MD [address] [place] [address] PCP - General Family Medicine 12/04/24 [employer] 04/08/22 Tj Larose MD Consultant Education Nephrology 04/10/24 documented as of this encounter
--- OUTSIDE RECORDS SUMMARY | 2025-02-13 18:08 | XMS_ITS | Encounter Summary ---
Author Organization [employer] Address [address] [facility] [address] 7[address] [place] [address] Care Team Providers Care Boat Driver Name Role Phone Sammy Reilly MD Primary Care Provide r Melissa Jefferson MD Primary Care Provider [phone] Reason for Visit * Reason Comments Med Refill Encounter Details Date Type Department Care Team ([facility] st Contact Info) Description 05/02/2023 Refill [facility] [address] [place] [address] Messi Mccollum MD 230 [place], [place] [phone] Uncomplicated opioid dependence (CMS/HCC) Social History Tobacco [...] Description 02/23/2025 2:00 PM EDT Office Visit [facility] [address] [place] [address] Jaja Mckeon, OD 230 [place] [address] 03/13/2025 10:00 AM EDT Office Visit [facility] [address] [place] [address] Messi Mccollum MD [address] [place] [address] documented as of this encounter Goals Goal [...] documented as of this encounter Care Teams Boat Driver Relationship Specialty Start Date End Date Sammy Reilly MD [address] [place] [address] PCP - General Internal Medicine 12/23/13 12/03/24 Melissa Jefferson MD [address] [place] [address] PCP - General Family Medicine 12/04/24 [employer] 04/08/22 Tj Larose MD Automobile Mechanic Assistant Nephrology 04/10/24 documented as of this encounter
--- OUTSIDE RECORDS SUMMARY | 2025-02-13 18:08 | XMS_ITS | Encounter Summary ---
Author Organization [employer] Address 75 [facility] 7t [place] [address] Care Team Providers Care Spray Drier Operator Name Role Phone Sammy Reilly MD Primary Care Provide r Melissa Jefferson MD Primary Care Provider [phone] Reason for Visit * Reason Comments Med Refill Encounter Details Date Type Department Care Team (Late Contact Info) Description 02/12/2023 Refill [facility] 230 [place] [address] Margarita Rob ANP 230 [place] [address] Social History Tobacco Use Types Packs/Day Years [...] 2:00 PM EDT Office Visit [facility] [address] [place], [place] [phone] Jaja Mckeon, OD [address] [place] [address] 03/13/2025 10:00 AM EDT Office Visit [facility] MED[facility] [address] [place] [address] Messi Mccollum MD [address] [place] [address] documented as of this encounter Goals Goal [...] documented as of this encounter Care Teams Spray Drier Operator Relationship Specialty Start Date End Date Sammy Reilly MD [address] [place] [address] PCP - General Internal Medicine 12/23/13 12/03/24 Melissa Jefferson MD [address] [place] [address] PCP - General Family Medicine 12/04/24 [employer] 04/08/22 Tj Larose MD Production Shift Supervisor Nephrology 04/10/24 documented as of this encounter
--- OUTSIDE RECORDS SUMMARY | 2025-02-13 18:08 | XMS_ITS | Encounter Summary ---
Author Organization [facility] Address [address] [place] [phone] Phone Care Team Providers Care Insurance Salesman Name Role Phone Unavailable Primary Care Provider Unavailabl e Encounter Details Date Type Department Care Team ([facility] st Contact Info) Description 11/13/2024 TCM in Dialysis Clinic [facility] [address] [phone] Yohannes Larose MD [address] [phone] Social History Tobacco Use Types [...] on file documented as of this encounter Progress Notes * Yohannes Larose MD - 11/13/2024 12:00 AM EDT Patient: Cruz Muller : 1955 Note Type: Dialysis TCM Service Date: 11/13/2024 The patient was seen for a [id number] visit as part of Transitional Care Management services. Attending Transcript Clerk: YOHANNES LAROSE MD Dialysis Location: [facility] Schedule: Shift: 2 INTERACTIVE CONTACT Contact with the patient or caregiver was made or attempted within 2 business days of discharge - details in the medical record. HOSPITALIZATION SUMMARY Patient transitioned from: Hospital Patient transitioned to: Home Admit Date: 11/03/2024 Discharge Date: 11/08/2024 Discharged info reviewed: No outstanding diagnostic tests and treatments HOME MEDICATIONS Discharge med list reviewed - changes reconciled and discussed with patient. PHYSICAL EXAM Exam performed. Vital Signs Reviewed. CV - Blood pressure noted. No edema. EXT - No ulcers. CARE COORDINATION Post-discharge follow-up appointments reviewed with the patient. VISIT DIAGNOSES CPT Code 77845 - High complexity, seen 8-14 days post discharge or moderate complexity, seen [id number] days of discharge. N18.6 End stage renal disease Signed by: YOHANNES LAROSE MD on 11/13/2024 at 12:45:31 PM Transcribed by: YOHANNES LAROSE MD on 11/13/2024 at 12:45:31 PM documented in this encounter Plan of Treatment Not on file documented as of this encounter Visit Diagnoses Not on filedocumented in this encounter
--- OUTSIDE RECORDS SUMMARY | 2025-02-13 18:08 | XMS_ITS | Encounter Summary ---
Author Organization [employer] Address 75 [facility] 7t [place] [address] Care Team Providers Care Sammying Machine Operator Name Role Phone Sammy Reilly MD Primary Care Provide r Melissa Jefferson MD Primary Care Provider [phone] Reason for Visit * Reason Onset Date Comments Paperwork/Forms 10/22/2023 Encounter Details Date Type Department Care Team ([facility] st Contact Info) Description 10/22/2023 Telephone [facility] MEDICINE 230 [place], [place] [phone] Sammy Reilly MD 230 [place], [place] [phone] Paperwork/Forms Social History Tobacco Use Types Packs/Day [...] the past 12 months, has t he [email or web address], gas, oil or water company threatened to [...] Description 02/23/2025 2:00 PM EDT Office Visit [facility] [address] [place] [address] Jaja Mckeon, OD 230 [place] [address] 03/13/2025 10:00 AM EDT Office Visit [facility] MEDICINE [address] [place] [address] Messi Mccollum MD 230 [place] [address] documented as of this encounter Goals Goal [...] documented as of this encounter Care Teams Sammying Machine Operator Relationship Specialty Start Date End Date Sammy Reilly MD [address] [place] [address] PCP - General Internal Medicine 12/23/13 12/03/24 Melissa Jefferson MD 230 [place] [address] PCP - General Family Medicine 12/04/24 [employer] 04/08/22 Tj Larose MD Wet Primer Powder Blender Nephrology 04/10/24 documented as of this encounter
--- OUTSIDE RECORDS SUMMARY | 2025-02-13 18:08 | XMS_ITS | Encounter Summary ---
Author Organization [employer] Address [address] [facility] 7t [place] [address] Care Team Providers Care Structural Steel Equipment Erector Name Role Phone Melissa Jefferson MD Primary Care Provider [phone] Encounter Details Date Type Department Care Team (Latest Contact Info) Description 02/13/2025 Travel Social History Tobacco Use Types Packs/Day [...] Description 02/23/2025 2:00 PM EDT Office Visit [facility] OPTOMETRY [address] [place] [address] Mike, Jaja, OD 230 [place] [address] 03/13/2025 10:00 AM EDT Office Visit [facility] MEDICINE 230 [place] [address] Messi Mccollum MD [address] [place] [address] documented as of this encounter Goals Goal Patient Goal Type Associated Problems Recent Progress Patient-Stated? Author Check and record your blood sugars as directed Blood Pressure No Jimbo Burris PharmD Short-term: Promote adherence to treatment regimen General No Jimbo Burris PharmD Take your medication every day Lifestyle No iJmbo Burris PharmD documented as of this encounter Visit Diagnoses Not on filedocumented in this encounter Additional Health Concerns Assessment Noted Time PHQ-9 Depression Total Score: 13 025 3:05 PM EDT documented as of this encounter Care Teams Structural Steel Equipment Erector Relationship Specialty Start Date End Date Melissa Jefferson MD [address] [place] [address] PCP - General Family Medicine 12/04/24 [email or web address] 04/08/22 Tj Larose MD Physician Anesthesiologist Nephrology 04/10/24 documented as of this encounter
--- OUTSIDE RECORDS SUMMARY | 2025-02-13 18:08 | XMS_ITS | Encounter Summary ---
Author Organization [employer] Address [address] [facility] 7t [place] [address] Care Team Providers Care General Road Supervisor Name Role Phone Melissa Jefferson MD Primary Care Provider [phone] Reason for Visit * Reason Onset Date Comments chart prep 02/11/2025 Encounter Details Date Type Department Care Team ([facility] st Contact Info) Description 02/11/2025 Telephone [facility] [address] [place] [address] Melissa Jefferson MD [address] [place] [address] chart prep Social History Tobacco Use Types Packs/Day Years [...] past 12 months, has t he [employer], gas, oil or water company [...] encounter Miscellaneous Notes * Telephone Encounter - Fela Eddy [place] - 02/11/2025 1:31 PM EDT Chart Prep Labs: done Images: not done Referrals: complete Vaccines due: Covid, Flu, Hep A, RSV, and Zoster Screenings: eye exam and foot exam Overdue care gaps: Glucose, PHQ-9, and ERIC-7 documented in this encounter Plan of Treatment Upcoming Encounters Date Type Department Care Team (Late st Contact Info) Description 02/23/2025 2:00 PM EDT Office Visit [facility] OPTOMETRY [address] [place] [address] Mike, Jaja, OD [address] [place] [address] 03/13/2025 10:00 AM EDT Office Visit [facility] [address] [place] [address] Messi Mccollum MD [address] [place] [address] documented as of this encounter Goals Goal [...] documented as of this encounter Care Teams General Road Supervisor Relationship Specialty Start Date End Date Melissa Jefferson MD [address] [place] [address] PCP - General Family Medicine 12/04/24 [email or web address] 04/08/22 Tj Larose MD Parallel Computing Software Engineer Nephrology 04/10/24 documented as of this encounter
--- OUTSIDE RECORDS SUMMARY | 2025-02-13 18:08 | XMS_ITS | Encounter Summary ---
Author Organization [employer] Address [address] [facility] [address] 7t [place] [address] Care Team Providers Care Highway Inspector Name Role Phone Sammy Reilly MD Primary Care Provide r Melissa Jefferson MD Primary Care Provider [phone] Reason for Visit * Reason Comments Med Refill Encounter Details Date Type Department Care Team (Late st Contact Info) Description 10/23/2023 Refill [facility] CH[facility] MED & PEDS [address] [place] [address] Sammy Reilly MD [address] [place], [place] [phone] Constipation due to opioid therapy Social History [...] Description 02/23/2025 2:00 PM EDT Office Visit [facility] OPTOMETRY [address] [place] [address] Mike, Jaja, OD [address] [place] [address] 03/13/2025 10:00 AM EDT Office Visit [facility] MEDICINE [address] [place] [address] Messi Mccollum MD [address] [place] [address] documented as of this encounter Goals Goal [...] documented as of this encounter Care Teams Highway Inspector Relationship Specialty Start Date End Date Sammy Reilly MD [address] [place] [address] PCP - General Internal Medicine 12/23/13 12/03/24 Melissa Jefferson MD [address] [place] [address] PCP - General Family Medicine 12/04/24 [employer] 04/08/22 Tj Larose MD Screw Machine Set Up Operator Tool Nephrology 04/10/24 documented as of this encounter
--- OUTSIDE RECORDS SUMMARY | 2025-02-13 18:08 | XMS_ITS | Encounter Summary ---
Author Organization [employer] Address [address] [facility] [address] 7t [place] [address] Care Team Providers Care Group Captain Name Role Phone Sammy Reilly MD Primary Care Provide r Melissa Jefferson MD Primary Care Provider [phone] Reason for Visit * Reason Comments Med Refill Encounter Details Date Type Department Care Team ([facility] st Contact Info) Description 04/25/2023 Refill [facility] [address] [place] [address] Messi Mccollum MD 230 [place], [place] [phone] Uncomplicated opioid dependence (CMS/HCC) Social History Tobacco [...] Description 02/23/2025 2:00 PM EDT Office Visit [facility] OPTOMETRY [address] [place] [address] Jaja Mckeon, OD [address] [place] [address] 03/13/2025 10:00 AM EDT Office Visit [facility] [address] [place] [address] Messi cMcollum MD [address] [place] [address] documented as of this encounter Goals Goal [...] documented as of this encounter Care Teams Group Captain Relationship Specialty Start Date End Date Sammy Reilly MD [address] [place] [address] PCP - General Internal Medicine 12/23/13 12/03/24 Melisas Jefferson MD [address] [place] [address] PCP - General Family Medicine 12/04/24 [employer] 04/08/22 Tj Larose MD Scrap Drop Engineer Nephrology 04/10/24 documented as of this encounter
--- OUTSIDE RECORDS SUMMARY | 2025-02-13 18:08 | XMS_ITS | Clinical Summary ---
Author Organization [facility] Address [address] [place] [address] Care Team Providers Care Public Health Policy Analyst Name Role Phone Sammy Strickland MD Primary Care Provider [phone] Allergies No known active allergies Medications albuterol [...] 68 04/07/2022 9:14 AM EST Temperature 36.1 C (97 F) 04/07/2022 4:29 AM EST Respiratory Rate 18 [...] Health Maintenance Due Date Last Done Comments Advance Care Planning 1955 Hepatitis C Virus Screening 1955 DTaP/Tdap/Td Vaccines [...] Density (Females,Ages 65 and older) Influenza Vaccine 12/19/2024 COVID-19 Vaccine ( season) 2025 Insurance [facility] Advance Directives * Full Code (Latest Code Status on File) Date Activated Date Inactivated Comments 03/27/2022 6:52 AM Care Teams Public Health Policy Analyst Relationship Specialty Start Date End Date Sammy Strickland MD [address] [place] [address] PCP - General 03/27/22
--- OUTSIDE RECORDS SUMMARY | 2025-02-13 18:08 | XMS_ITS | Encounter Summary ---
Author Organization [facility] Address [address] [place] [address] Care Team Providers Care Electric Scoop Operator Name Role Phone Sammy Strickland MD Primary Care Provider [phone] Encounter Details Date Type Department Care Team [...] on filedocumented in this encounter Care Teams Electric Scoop Operator Relationship Specialty Start Date End Date Sammy Strickland MD [address] [place] [address] [place] [address] PCP - General 03/27/22 documented as of this encounter
--- OUTSIDE RECORDS SUMMARY | 2025-02-13 18:08 | XMS_ITS | Encounter Summary ---
Author Organization [employer] Address [address] [facility] 7t [place] [address] Care Team Providers Care Substation Operator Helper Generation Name Role Phone Sammy Reilly MD Primary Care Provide r Melissa Jefferson MD Primary Care Provider [phone] Reason for Visit * Reason Comments Med Refill Encounter Details Date Type Department Care Team (Late Contact Info) Description 02/09/[address] [facility] MEDICINE [address] [place] [address] Lois Garrett MD [address] [place] [address] Primary insomnia Social History Tobacco Use Types [...] Description 02/23/2025 2:00 PM EDT Office Visit [facility] OPTOMETRY [address] [place], [place] [phone] Jaja Mckeon, OD 230 [place] [address] 03/13/2025 10:00 AM EDT Office Visit [facility] MEDICINE [address] [place] [address] Messi Mccollum MD [address] [place] [address] documented as of this encounter Goals Goal [...] documented as of this encounter Care Teams Substation Operator Helper Generation Relationship Specialty Start Date End Date Sammy Reilly MD [address] [place] [address] PCP - General Internal Medicine 12/23/13 12/03/24 Melissa Jefferson MD [address] [place] [address] PCP - General Family Medicine 12/04/24 [email or web address] 04/08/22 Tj Larose MD Disc Jockey Nephrology 04/10/24 documented as of this encounter
--- OUTSIDE RECORDS SUMMARY | 2025-02-13 18:08 | XMS_ITS | Encounter Summary ---
Author Organization [employer] Address [address] [facility] [address] 7t [place] [address] Care Team Providers Care Slab Grinder Name Role Phone Sammy Reilly MD Primary Care Provide r Melissa Jefferson MD Primary Care Provider [phone] Reason for Visit * Reason Onset Date Comments PA 06/10/2024 Encounter Details Date Type Department Care Team ([facility] st Contact Info) Description 06/10/2024 Telephone [facility] MEDICINE [address] [place], [place] [phone] Sammy Reilly MD 230 [place], [place] [phone] PA Social History Tobacco Use Types Packs/Day [...] Description 02/23/2025 2:00 PM EDT Office Visit [facility] OPTOMETRY [address] [place] [address] Jaja Mckeon, VALERIA [address] [place] [address] 03/13/2025 10:00 AM EDT Office Visit [facility] MEDICINE [address] [place] [address] Messi Mccollum MD [address] [place], [place] [phone] documented as of this encounter Goals Goal [...] documented as of this encounter Care Teams Slab Grinder Relationship Specialty Start Date End Date Sammy Reilly MD 230 [place] [address] PCP - General Internal Medicine 12/23/13 12/03/24 Melissa Jefferson MD [address] [place] [address] PCP - General Family Medicine 12/04/24 [employer] 04/08/22 Tj Larose MD Green Tire Inspector Nephrology 04/10/24 documented as of this encounter
--- OUTSIDE RECORDS SUMMARY | 2025-02-13 18:08 | XMS_ITS | Encounter Summary ---
Author Organization [employer] Address [address] [facility] [address] 7t [place] [address] Care Team Providers Care Retail Sales Associate Bilingual Name Role Phone Sammy Reilly MD Primary Care Provide r Melissa Jefferson MD Primary Care Provider [phone] Reason for Visit * Reason Comments Med Refill Encounter Details Date Type Department Care Team ([facility] st Contact Info) Description 04/25/2023 Refill [facility] MEDICINE [address] [place], [place] [phone] Name, MD Tye [address] [place], [place] [phone] Hypertension secondary to other renal disorders; Primary [...] Description 02/23/2025 2:00 PM EDT Office Visit [facility] OPTOMETRY [address] [place] [address] Jaja Mckeon, OD [address] [place] [address] 03/13/2025 10:00 AM EDT Office Visit [facility] MEDICINE [address] [place] [address] Messi Mccollum MD [address] [place] [address] documented as of this encounter Goals Goal [...] as of this encounter Care Teams Retail Sales Associate Bilingual Relationship Specialty Start Date End Date Sammy Reilly MD [address] [place] [address] PCP - General Internal Medicine 12/23/13 12/03/24 Melissa Jefferson MD 230 [facility] [place] [phone] PCP - General Family Medicine 12/04/24 [employer] 04/08/22 Tj Larose MD Orthopedic Physician Nephrology 04/10/24 documented as of this encounter
--- OUTSIDE RECORDS SUMMARY | 2025-02-13 18:08 | XMS_ITS | Encounter Summary ---
Author Organization [facility] Address [address] [address] Phone Care Team Providers Care Inbound Sales Representative Name Role Phone Unavailable Primary Care Provider Unavailabl e Encounter Details Date Type Department Care Team ([facility] st Contact Info) Description 02/07/2025 Treatment [facility] [address] [address] Yohannes Larose MD [address] [address] End stage renal disease; Dependence [...] encounter Miscellaneous Notes * Dialysis Note - Yohannes Larose MD - 02/07/2025 12:00 AM EDT BASIC NOTE Patient: Cruz Muller : 1955 Note Author: YOHANNES LAROSE MD Service Date: 02/07/2025 This patient was personally seen [id number] for a basic visit as part of routine monthly dialysis care for end stage renal disease. Attending Fork Lift Technician: YOHANNES LAROSE MD Dialysis Location: [facility] D[facility] Schedule: Shift: 2 OVERVIEW Patient is stable. ADEQUACY ASSESSMENT Kt/V, Natural Log 1.61 (01/22/25) 1.65 (12/27/24) See Comment (12/25/24) UREA REDUCTION RATIO (%) 71 (01/22/25) 76 (12/27/24) ?95 (12/25/24) BUN 49 (01/22/25) 54 (12/27/24) 39 (12/25/24) BUN Post Dialysis 14 (01/22/25) 13 (12/27/24) ?2 (12/25/24) Creatinine 7.25 (01/22/25) 6.30 (12/25/24) 8.13 (11/18/24) Bicarbonate (CO2) 26 (01/22/25) 23 (12/25/24) 25 (11/22/24) Sodium 133 (01/22/25) 135 (12/25/24) 130 (11/18/24) ANEMIA ASSESSMENT Hgb 9.5 (01/22/25) 9.6 (01/15/25) 9.8 (01/08/25) Iron Saturation (TSat) 30 (01/22/25) 44 (12/25/24) 47 (11/18/24) Ferritin 1,571 (01/22/25) 1,316 (12/25/24) 1,432 (11/18/24) Iron 67 (01/22/25) 101 (12/25/24) 102 (11/18/24) TIBC 220 (01/22/25) 228 (12/25/24) 218 (11/18/24) MCV 100.7 (01/22/25) 100.0 (12/25/24) 99.7 (11/18/24) Platelets 263 (01/22/25) 228 (12/25/24) 211 (11/18/24) BMM ASSESSMENT Calcium, Adjusted Total 9.1 01/22/25 8.2 12/25/24 8.8 11/18/24 Calcium 9.1 01/22/25 8.0 12/25/24 8.8 11/18/24 Phosphorus, Serum 5.6 01/22/25 5.5 12/25/24 6.0 11/18/24 Ca*PO4 51.0 01/22/25 44.0 12/25/24 52.8 11/18/24 PTH, Intact 270 11/18/24 154 08/21/24 190 07/24/24 Magnesium 2.4 01/22/25 2.6 12/25/24 2.6 11/18/24 Alkaline Phosphatase 158 01/22/25 156 12/25/24 154 11/18/24 NUTRITION ASSESSMENT Albumin 4.2 01/22/25 3.8 12/25/24 4.4 11/18/24 Potassium 4.6 01/22/25 4.2 01/15/25 3.6 01/08/25 Hemoglobin A1C 5.9 11/18/24 5.5 08/21/24 ADDITIONAL LABS White Blood Cells 6.5 (01/22/25) 7.6 (12/25/24) 8.8 (11/18/24) Cholesterol 135 (11/18/24) 144 (08/21/24) HDL 52 (11/18/24) 50 (08/21/24) LDL-Calc 65 (11/18/24) 75 (08/21/24) Triglycerides 88 (11/18/24) 94 (08/21/24) ADDITIONAL COMMENT COMMENTS: 02/28/24 stable 04/08/24 doing ok 07/01/24 stable Signed by: YOHANNES LAROSE MD on 02/07/2025 at 12:42:38 PM Transcribed by: YOHANNES LAROSE MD on 02/07/2025 at 12:42:38 PM documented in this encounter Plan of Treatment Not on file documented as of this encounter Visit Diagnoses Diagnosis End stage renal disease Dependence on renal dialysis documented in this encounter
--- OUTSIDE RECORDS SUMMARY | 2025-02-13 18:08 | XMS_ITS | Encounter Summary ---
Author Organization [employer] Address [address] [facility] 7t [place] [address] Care Team Providers Care Phone Manager Name Role Phone Melissa Jefferson MD Primary Care Provider [phone] Reason for Visit * Reason Comments Med Refill Encounter Details Date Type Department Care Team (Late st Contact Info) Description 12/18/2024 Refill [facility] MEDICINE [address] [place] [address] Sammy Reilly MD [address] [place], [place] [phone] Social History Tobacco Use Types Packs/Day Years [...] the past 12 months, has t he [employer], gas, oil or water company threatened to [...] 02/23/2025 2:00 PM EDT Office Visit [facility] OPTOMETRY [address] [place] [address] Mike, Jaja, OD [address] [place] [address] 03/13/2025 10:00 AM EDT Office Visit [facility] MEDICINE [address] [place] [address] Messi Mccollum MD [address] [place] [address] documented as of this encounter Goals Goal [...] documented as of this encounter Care Teams Phone Manager Relationship Specialty Start Date End Date Melissa Jefferson MD [address] [place] [address] PCP - General Family Medicine 12/04/24 [employer] 04/08/22 Tj Larose MD Director Of Construction Nephrology 04/10/24 documented as of this encounter
--- OUTSIDE RECORDS SUMMARY | 2025-02-13 18:08 | XMS_ITS | Encounter Summary ---
Author Organization [employer] Address [address] [facility] [address] 7t [place] [address] Care Team Providers Care Mixer Operator Name Role Phone Sammy Reilly MD Primary Care Provide r Melissa Jefferson MD Primary Care Provider [phone] Reason for Visit * Reason Comments Med Refill Encounter Details Date Type Department Care Team (Late st Contact Info) Description 11/21/2023 Refill [facility] CHC MED & PEDS [address] [place] [address] Sammy Reilly MD [address] [place], [place] [phone] Chronic obstructive pulmonary disease, unspecified COPD type [...] the past 12 months, has t he [employer], gas, oil or water company threatened to [...] Description 02/23/2025 2:00 PM EDT Office Visit [facility] OPTOMETRY [address] [place] [address] Mike, Jaja, OD [address] [place] [address] 03/13/2025 10:00 AM EDT Office Visit [facility] MEDICINE 230 [place] [address] Messi Mccollum MD 230 [place] [address] documented as of this encounter Goals Goal [...] documented as of this encounter Care Teams Mixer Operator Relationship Specialty Start Date End Date Sammy Reilly MD [address] [place] [address] PCP - General Internal Medicine 12/23/13 12/03/24 Melissa Jefferson MD [address] [place] [address] PCP - General Family Medicine 12/04/24 [employer] 04/08/22 Tj Larose MD College Hire Nephrology 04/10/24 documented as of this encounter
--- OUTSIDE RECORDS SUMMARY | 2025-02-13 18:08 | XMS_ITS | Encounter Summary ---
Author Organization [employer] Address [address] [facility] [address] 7t [place] [address] Care Team Providers Care Non Profit Director Name Role Phone Melissa Jefferson MD Primary Care Provider [phone] Reason for Visit * Reason Onset Date Comments Med Refill 12/12/2024 Encounter Details Date Type Department Care Team (Late st Contact Info) Description 12/12/2024 Refill [facility] MEDICINE [address] [place] [address] Jessica Rahman, RN Social History Tobacco Use Types Packs/Day [...] Description 02/23/2025 2:00 PM EDT Office Visit [facility] OPTOMETRY [address] [place] [address] Jaja Mckeon, OD 230 [place] [address] 03/13/2025 10:00 AM EDT Office Visit [facility] MEDICINE [address] [place] [address] Messi Mccollum MD [address] [place] [address] documented as of this encounter Goals Goal [...] documented as of this encounter Care Teams Non Profit Director Relationship Specialty Start Date End Date Melissa Jefferson MD [address] [place] [address] PCP - General Family Medicine 12/04/24 [employer] 04/08/22 Tj Larose MD Global Account Director Nephrology 04/10/24 documented as of this encounter
--- OUTSIDE RECORDS SUMMARY | 2025-02-13 18:08 | XMS_ITS | Encounter Summary ---
Author Organization [facility] Address [address] [place] [address] Phone Care Team Providers Care Accordion Maker Name Role Phone Unavailable Primary Care Provider Unavailabl e Encounter Details Date Type Department Care Team (Late st Contact Info) Description 07/18/2022 Telephone [facility] [address] [place] [phone] Concepción Cruz [place] Social History Tobacco Use [...]
--- OUTSIDE RECORDS SUMMARY | 2025-02-13 18:09 | XMS_ITS | Encounter Summary ---
Author Organization [employer] Address [address] [facility] 7t [place] [address] Care Team Providers Care Dietitian Therapeutic Name Role Phone Sammy Reilly MD Primary Care Provide r Melissa Jefferson MD Primary Care Provider [phone] Encounter Details Date Type Department Care Team ([facility] st Contact Info) Description 04/07/2024 Orders Only [facility] CHC MED & PEDS [address] [place] [address] Sebastián Lora MD [address] [place], [place] [phone] Social History Tobacco Use Types Packs/Day Years [...] 2:00 PM EDT Office Visit [facility] OPTOMETRY [address] [place] [address] Mike, Jaja, OD 230 [place] [address] 03/13/2025 10:00 AM EDT Office Visit [facility] MEDICINE [address] [place] [address] Messi Mccollum MD 230 [place] [address] documented as of this encounter Goals Goal [...] documented as of this encounter Care Teams Dietitian Therapeutic Relationship Specialty Start Date End Date Sammy Reilly MD 230 [place] [address] PCP - General Internal Medicine 12/23/13 12/03/24 Melissa Jefferson MD 230 [place] [address] PCP - General Family Medicine 12/04/24 [email or web address] 04/08/22 Tj Larose MD Network Infrastructure Architect Nephrology 04/10/24 documented as of this encounter
--- OUTSIDE RECORDS SUMMARY | 2025-02-13 18:09 | XMS_ITS | Clinical Summary ---
Author Organization [facility] Address [address] [place] [address] Phone Care Team Providers Care Loss Mitigation Specialist Name Role Phone Sammy Vicente MD Primary Care Provi baldo Allergies No known active allergies Encounters Date Type Department Care Team Description 12/03/2024 2:00 PM EDT Office Visit Orthopedic Surgery [facility] [address] [address] Candido Hu, DPM Corns and callosities (Primary Dx); Dermatophytosis of nail; Pain in toe of right foot; Pain in toe of left foot; Metatarsalgia of both feet; Primary osteoarthritis of both feet; Acquired hammer toe of right foot; Hammer toe of left foot; Type II diabetes mellitus with peripheral circulatory disorder ([facility] V24, [facility] V28); Tinea pedis of both feet; Diabetic mononeuropathy simplex ([facility] V24, [facility] V28) from Last 3 Months Social History Tobacco Use Types Packs/Day Years Used Date Smoking Tobacco: Never Assessed Comments Unknown Sex and Gender Information Value Date Recorded Sex Assigned at Not on file Legal Sex Female 2:31 PM EST Gender Identity Not on file Sexual Orientation Not on file Last Filed Vital Signs Vital Sign Reading Time Taken Comments Blood Pressure - - Pulse - - Temperature - - Respiratory Rate - - Oxygen Saturation - - Inhaled Oxygen Concentration - - Weight 74.8 kg (165 lb) 09/29/2024 2:49 PM EDT Height 165.1 cm (5' 5 ) 09/29/2024 2:49 PM EDT Body Mass Index 27.46 09/29/2024 2:49 PM EDT Plan of Treatment Upcoming Encounters Date Type Department Care Team ([facility] Contact Info) Description 03/09/2025 2:00 PM EDT Office Visit Orthopedic Surgery - [place] 250 175 [facility] [address] [place] [address] Candido Hu, DPM 175 [facility] [address] [place] [address] Health Maintenance Due Date Last Done Comments Breast Cancer Screening 1956 Diabetes: Annual Foot Exam 1966 Diabetes: Annual Retina Eye Exam 1966 Hepatitis A Vaccines (1 of 2 - Risk 2-dose series) 1975 Zoster Vaccines (1 of 2) 1975 RSV Immunization Adult Patients (1 - Risk 60-74 years 1-dose series) 2016 Colorectal Cancer Screening: Colonoscopy 04/19/2022 Falls Risk Assessment 04/19/2022 Hepatitis C Screening 04/19/2022 Medicare Annual Wellness Visit 04/19/2022 Osteoporosis Screening (Bone Density Screening) 04/19/2022 Social Influencers of Health Screening 04/19/2022 Depression Screening 05/21/2024 Diabetes: Annual Urine Albumin-Creatinine Ratio (uACR) 08/01/2024 COVID-19 Vaccine ( season) 2025 05/10/2023, 03/03/2022, 05/17/2021, Additional history exists Influenza Vaccine (#1) 2025 , 02/26/2021, 05/29/2018, Additional history exists Diabetes: Blood Sugar Control Test (HGBA1C) 05/21/2025 11/18/2024, 11/18/2024, 09/03/2024, Additional history exists Diabetes: Annual GFR (Glomerular Filtration Rate) 09/20/2025 09/20/2024, 04/06/2022, 2022, Additional history exists Hypertension/CHF/CAD Annual BMP Blood Test 09/20/2025 09/20/2024, 04/06/2022, 2022, Additional history exists Cholesterol Screening (Lipid Panel) 11/18/2029 11/18/2024, 08/21/2024, 11/23/2020 DTaP,Tdap,and Td Vaccines (3 - Td or Tdap) 12/03/2034 12/03/2024, 01/07/2015 Pneumococcal Vaccine: 50+ Years Completed 09/05/2022, 08/04/2022, 07/12/2015, Additional history exists Hepatitis B Vaccines Completed 12/03/2024, 04/09/2003, 11/17/1999 HIB Vaccines Aged Out No longer eligi [...] to complete this topic RSV Immunization Patients Under 20 months Aged Out No longer eligible based on patient's age to complete this topic Varicella Vaccines Aged Out No longer eligible based on patient's age to complete this topic [place] [address] [address] [address] MEDICARE Member Subscriber Plan / Payer (Ef fective 2021-Present) Name:Renzo Relation to Subscriber:Self Name:Cruz Muller Payer ID:[id number] Group ID:[id number] Type:Not on file Address: [place] [address] [address] Care Teams Loss Mitigation Specialist Relationship Specialty Start Date End Date Sammy Vicente MD [address] [place] [address] [phone] PCP - General Internal Medicine 08/01/24
--- OUTSIDE RECORDS SUMMARY | 2025-02-13 18:09 | XMS_ITS | Encounter Summary ---
Author Organization [employer] Address [address] [place] [address] Care Team Providers Care Vice Principal Name Role Phone Sammy Reilly MD Primary Care Provide r Melissa Jefferson MD Primary Care Provider [phone] Encounter Details Date Type Department Care Team (Late st Contact Info) Description 06/26/2024 Telephone [facility] MEDICINE [address] [place] [address] Sammy Rielly MD [address] [place] [address] Social History Tobacco Use Types Packs/Day Years [...] Visit [facility] OPTOMETRY [address] [place] [address] Mike, Jaja, OD [address] [place] [address] 03/13/2025 10:00 AM EDT Office Visit [facility] MEDICINE [address] [place] [address] Messi Mccollum MD [address] [place] [address] documented as of this encounter Goals Goal [...] documented as of this encounter Care Teams Vice Principal Relationship Specialty Start Date End Date Sammy Reilly MD [address] [place] [address] PCP - General Internal Medicine 12/23/13 12/03/24 Melissa Jefferson MD [address] [place] [address] PCP - General Family Medicine 12/04/24 [employer] 04/08/22 Tj Larose MD [employer] Nephrology 04/10/24 documented as of this encounter
--- OUTSIDE RECORDS SUMMARY | 2025-02-13 18:09 | XMS_ITS | Encounter Summary ---
Author Organization [employer] Address [address] [facility] [address] [place] [address] Care Team Providers Care International Relations Professor Name Role Phone Sammy Reilly MD Primary Care Provide r Melissa Jefferson MD Primary Care Provider [phone] Reason for Visit * Reason Comments Med Refill Encounter Details Date Type Department Care Team ([facility] st Contact Info) Description 11/29/2022 Refill [facility] MEDICINE [address] [place] [address] Messi Mccollum MD [address] [place], [place] [phone] Tobacco use disorder Social History Tobacco Use [...] Visit [facility] OPTOMETRY [address] [place] [address] Jaja Mckeon, OD [address] [place] [address] 03/13/2025 10:00 AM EDT Office Visit [facility] MEDICINE [address] [place] [address] Messi Mccollum MD [address] [place] [address] documented as of this encounter Goals Goal [...] documented as of this encounter Care Teams International Relations Professor Relationship Specialty Start Date End Date Sammy Reilly MD [address] [place] [id number] PCP - General Internal Medicine 12/23/13 12/03/24 Melissa Jefferson MD [address] [place], [place] [phone] PCP - General Family Medicine 12/04/24 [employer] 04/08/22 Tj Larose MD Sales Service Technician Nephrology 04/10/24 documented as of this encounter
--- OUTSIDE RECORDS SUMMARY | 2025-02-13 18:09 | XMS_ITS | Encounter Summary ---
Author Organization [email or web address] Address [address] [facility] 7t [place] [address] Care Team Providers Care Wrapper Stemmer Operator Name Role Phone Sammy Reilly MD Primary Care Provide r Melissa Jefferson MD Primary Care Provider [phone] Reason for Visit * Reason Comments Med Refill Encounter Details Date Type Department Care Team ([facility] st Contact Info) Description 11/10/2022 Refill [facility] MEDICINE [address] [place] [address] Hattie Gonzales MD [address] [place] [address] Social History Tobacco Use Types Packs/Day Years [...] Description 02/23/2025 2:00 PM EDT Office Visit [facility] OPTOMETRY [address] [place] [address] Jaja Mckeon, OD [address] [place] [address] 03/13/2025 10:00 AM EDT Office Visit [facility] MEDICINE [address] [place] [address] Messi Mccollum MD [address] [place] [address] documented as of this encounter Goals Goal [...] as of this encounter Care Teams Wrapper Stemmer Operator Relationship Specialty Start Date End Date Sammy Reilly MD [address] [place] [address] PCP - General Internal Medicine 12/23/13 12/03/24 Melissa Jefferson MD [address] [place] [address] PCP - General Family Medicine 12/04/24 [employer] 04/08/22 Tj Larose MD [employer] Machine Operator Nephrology 04/10/24 documented as of this encounter
--- OUTSIDE RECORDS SUMMARY | 2025-02-13 18:09 | XMS_ITS | Encounter Summary ---
Author Organization [employer] Address [address] [place] [address] Care Team Providers Care Borough Coordinator Name Role Phone Sammy Reilly MD Primary Care Provide r Melissa Jefferson MD Primary Care Provider [phone] Reason for Visit * Reason Onset Date Comments Appointment Request 07/08/2024 Encounter Details Date Type Department Care Team ([facility] Contact Info) Description 07/08/2024 Telephone [facility] MEDICINE [address] [place], [place] [phone] Sammy Reilly MD [address] [place], [place] [phone] Appointment Request Social History Tobacco Use Types [...] 07/08/2024 3:58 PM EST 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 Pt wants to give info to PCP or nurse. Contact pt GIFTED PROGRAM TEACHER at [phone] documented in this encounter Plan of Treatment Upcoming Encounters Date Type Department Care Team (Late st Contact Info) Description 02/23/2025 2:00 PM EDT Office Visit [facility] OPTOMETRY [address] [place], [place] [phone] Jaja Mckeon, OD [address] [place] [address] 03/13/2025 10:00 AM EDT Office Visit [facility] MEDICINE [address] [place], [place] [phone] Messi Mccollum MD [address] [place] [address] documented as of this encounter Goals Goal [...] documented as of this encounter Care Teams Borough Coordinator Relationship Specialty Start Date End Date Sammy Reilly MD [address] [place] [phone] PCP - General Internal Medicine 12/23/13 12/03/24 Melissa Jefferson MD [address] [place] [address] PCP - General Family Medicine 12/04/24 [employer] 04/08/22 Tj Larose MD [employer] [facility] Nephrology 04/10/24 documented as of this encounter
--- OUTSIDE RECORDS SUMMARY | 2025-02-13 18:09 | XMS_ITS | Clinical Summary ---
Author Organization [employer] Address [address] [facility] [address] [place] [address] Care Team Providers Care Air Traffic Control Operator Name Role Phone Melissa Jefferson MD Primary Care Provider [phone] Allergies No known active allergies Medications * This document contains information received from the source organization and may not represent a complete record from that organization. sennosides (Senokot) 8.6 MG tablet TAKE 2 TABLETS BY MOUTH AT BEDTIME Active Spacer/Aero-Hol ding Chambers (Compact Space Chamber) deviceIndicatio ns:Cuban Space chamber use with albuterol pump Active Alcohol Swabs (SM Alcohol Prep) 70 [...] TWICE DAILY NEEDED 30 g 023 Active glucose 4 g chewable tablet Chew 4 tablets (16 g) if needed for low blood sugar. 50 tablet 12 024 Active Diclofenac Sodium 1 % gelIndications: [...] FOR WHEEZING 90 mL 3 025 Active mupirocin (Bactroban) 2 % ointmentIndicat ions:Chronic obstructive pulmonary disease, unspecified COPD type (CMS/HCC) APPLY TOPICALLY TO THE AFFECTED AREA(S) THREE TIMES DAILY FOR 10 DAYS 22 g 025 Active carvedilol (Coreg) 25 MG tablet Take [...] new one 4 patch 2 025 Active hydrALAZINE (Apresoline) 50 MG tabletIndicatio ns:Uncontrolled hypertension Take 1 tablet (50 mg) by mouth 3 times daily. 90 tablet 2 025 2025 Active Blood Glucose Monitoring Suppl (FreeStyle Lite) device Inject 1 each under the skin Use as directed. Use to test blood sugar as directed. 1 each 025 Active Aspirin Low Dose 81 MG EC tablet TAKE 1 TABLET BY MOUTH EVERY DAY 30 tablet 11 025 Active B Rweftji-Y-Prwmh Acid (Elle-Sharifa Rx) 1 MG tablet TAKE 1 TABLET BY MOUTH EVERY DAY 90 tablet 3 025 Active Blood Pressure Monitoring (Omron 3 Series BP Monitor) deviceIndicatio ns:Primary hypertension USE TO CHECK BLOOD PRESSURE DIRECTED ONCE A WEEK 1 each 025 Active nicotine (Nicoderm, Step 2) 14 MG/24HR patchIndication s:Tobacco use disorder APPLY 1 PATCH TOPICALLY TO THE SKIN IN THE MORNING. DO NOT SMOKE WHILE USING PATCH. 28 patch 2 025 Active amLODIPine (Norvasc) 10 MG tabletIndicatio ns:Uncontrolled hypertension Take 1 tablet (10 mg) by mouth Once per day. 90 tablet 025 Active isosorbide dinitrate (Isordil) 30 MG tabletIndicatio ns:Hypertension secondary to other renal disorders TAKE 1 TABLET BY MOUTH THREE TIMES DAILY 90 tablet 2 025 Active polyethylene glycol, PEG, 3350 (Glycolax) 17 GM/SCOOP powder Mix 17g (1 capful) in 8 ounces of water and take by mouth every day 510 g 2 025 Active pantoprazole (ProtoNix) 40 MG EC tabletIndicatio ns:Chronic gastritis without bleeding, unspecified gastritis type Take 1 tablet (40 mg) by mouth before breakfast. Do not crush, chew, or split.TAKE 1 TABLET BY MOUTH EVERY MORNING. DO NOT BREAK, CRUSH, DISSOLVE OR CHEW. 90 tablet 1 025 Active melatonin 5 MG tabletIndicatio ns:Primary insomnia TAKE 1 TABLET BY MOUTH EVERY DAY AT BEDTIME NEEDED FOR SLEEP 30 tablet 3 025 Active Acetaminophen Extra Strength 500 MG tabletIndicatio ns:Chronic midline low back pain without sciatica TAKE 1 TABLET BY MOUTH EVERY 8 HOURS NEEDED FOR PAIN 30 tablet 9 025 Active TRUEplus Lancets 33G misc TEST BLOOD SUGAR FIVE TIMES DAILY 100 each 11 025 Active glucose blood (FREESTYLE LITE) test stripIndication s:Type 2 diabetes mellitus with chronic kidney disease on chronic dialysis, with long-term current use of insulin ([facility]) USE TO TEST BLOOD SUGAR THREE TIMES DAILY 100 strip 11 Active lactulose (Chronulac) 10 GM/15ML solutionIndicat ions:Constipati on, unspecified constipation type GIVE 15 ML BY MOUTH EVERY DAY NEEDED FOR CONSTIPATION 473 mL 3 Active buprenorphine-n aloxone (Suboxone) 12-3 MG per sublingual filmIndications :Uncomplicated opioid dependence (CMS/[facility]) Place 1 Film under the tongue Once per day. 1/2 film under tongue twice daily. Do not start before December 19, 2024. 28 Film 2 025 2024 Active ondansetron (Zofran) 4 MG tabletIndicatio ns:Nausea TAKE 1 TABLET BY MOUTH EVERY TWELVE HOURS NEEDED FOR NAUSEA AND VOMITING 20 tablet 1 Active docusate sodium (Colace) 100 MG capsule TAKE 2 CAPSULES BY MOUTH EVERY DAY IN THE MORNING 180 capsule Active doxazosin (Cardura) 1 MG tablet take 4 tablets (4 mg) by mouth at bedtime Active Golytely 236 g solution See Instructions, Follow instructions from GI, # 4,000 mL, 0 Refills, Maintenance, 11/26/24 4:51:00 PM EDT, [facility], Partial fill upon patient request if the prescription is for a schedule II opioid drug., Follow instructions from GI, 155, cm, 11/26/24 14:51:00 EDT, Height, 65.5, kg, 11/04/24 0:54:00 EDT, Dry Weight Active mirtazapine (Remeron) 30 MG tablet Take 30 mg by mouth at bedtime. Active docusate sodium (Colace) 100 MG capsule Take 1 capsule (100 mg) by mouth Once per day. TAKE 2 CAPSULES BY MOUTH EVERY DAY IN THE MORNING 180 capsule 025 2024 Discontinued(R eorder (will not trigger notification to Pharmacy)) Active Problems Problem Noted Date Diagnosed Date Acute respiratory failure, u nspecified whether with hypoxia or hypercapnia 02/12/2025 Acute pancreatitis 02/12/2025 Chronic renal failure 02/12/2025 Depression 02/12/2025 Chronic GERD 02/12/2025 Hemorrhoids that prolapse wi th straining, but retract spontaneously 02/12/2025 Illiterate 02/12/2025 Intermittent asthma 02/12/2025 Primary localized osteoarthritis of knees, bilat eral 02/12/2025 Pulmonary edema 02/12/2025 Opioid abuse 02/12/2025 Hx of non-ST elevation myocardial infarction (NS KAYLA) 10/16/2024 Uncontrolled hypertension 09/12/2024 Assessment & Plan (11/03/2024 4:31 PM EDT): Patient is clinically asymptomatic I called today her VNA Heidy and her automotive parts counter assistant Tj Larose MD at [phone], he tells me he is tired during her blood pressure medications, he tells me blood pressure has been also high at dialysis he had it doxazosin she is right now on 6 mg and he is thinking to go up to 10 mg next dialysis if blood pressure is not better controlled, today we agree to add to her medications amlodipine 10 mg daily I advised to follow up instructions and follow-up also with automotive parts counter assistant at dialysis sessions Assessment & Plan (09/12/2024 4:18 PM EDT): [...] 9:17 AM EDT): Pt recently admitted to [facility] for [place]kalemia. Pt's K improved after Lokelma and HD. Her Losartan was discontinued as well Plan: Repeat BMP Hospital discharge follow-up 10/18/2023 Assessment & Plan (07/15/2024 3:41 PM EST): Pt recently admitted to [facility] from 05/29 until 06/04 after sresented to ER with altered MS and SOB. Found to have hyperkalemia 6.6, HTN, pulmonary edema needing BiPAP support. Undergone emergent dialysis. Also found to have acute pancreatitis with elevated lipase (trended down during hospital stay). Had GI, Nephrology, and Psychiatry consultations while inpatient. Assessment & Plan (10/18/2023 9:17 AM EDT): Pt recently admitted to [facility] 10/16/2023 for hyperkalemia. Pt's K improved after Lokelma and HD. Her Losartan was discontinued as well Plan: Repeat BMP Rectal prolapse 10/18/2023 Assessment & Plan (09/12/2024 4:17 PM EDT): I took today to Heidy her VNA she tells me she does have an upcoming appointment with surgery she does not know exactly the date tells me INSPECTION MANAGER knows, I tried to contact also INSPECTION MANAGER but I was unsuccessful I advised patient to be sure she has that appointment and do not miss it Assessment & Plan (07/15/2024 4:01 PM EST): Televisit Pt is well known to the office of General surgeon Dr. Edmundo Mendez who last saw her on 06/16/2024 Patient requested a second opinion at [facility] to discuss her options. [...] back to Gastroenterology as recommended by Dr. Nataile Thrasher General surgeon at [facility] for a full colonoscopy Assessment & Plan (03/11/2024 9:23 AM EDT): Pt here for a follow up after she was seen again at [facility] ER with c/o rectal prolapse. Pt is [...] basis. Patient requested a second opinion at [facility] to discuss her options. This referral [...] Mammogram: 01/25/2019 , referred missed appointment previously, INSPECTION MANAGER tells me she will make the appointment [...] 4:07 PM EST): Pt previously admitted to [facility] from 03/10/22-03/13/22 for further management with a diagnosis of Acute hypoxemic respiratory failure possibly due to fluid overload/ESRD. Patient received HD and improved. Pt was subsequently readmitted to [facility] from 03/26/22 - 03/27/22 for CHF, hypoxia and ESRD Patient admitted at [facility] from 03/27/22 - 04/07/22. ProBNP elevated >70,000 on 03/27. volume status improved after dyalisis on 03/27. ECHO showed EF 45% . Cardiology consult recommended outpt ischemic work up. [facility] called pt on 11/14/23 to schedule new patient appt, they LVM and sent letter out to book. LB She never went to see test engine operator will refer back Assessment & Plan (10/18/2023 9:34 AM EDT): Pt previously admitted to [facility] from 03/10/22-03/13/22 for further management with a diagnosis of Acute hypoxemic respiratory failure possibly due to fluid overload/ESRD. Patient received HD and improved. Pt was subsequently readmitted to [facility] from 03/26/22 - 03/27/22 for CHF, hypoxia and ESRD Patient admitted at [facility] from 03/27/22 - 04/07/22. ProBNP elevated >70,000 on 03/27. volume status improved after dyalisis on 03/27. ECHO showed EF 45% . Cardiology consult recommended outpt ischemic work up. She never went to see test engine operator will refer back Assessment & Plan (12/28/2022 10:03 AM EDT): Pt previously admitted to [facility] from 03/10/22-03/13/22 for further management with a diagnosis of Acute hypoxemic respiratory failure possibly due to fluid overload/ESRD. Patient received HD and improved. Pt was subsequently readmitted to [facility] from 03/26/22 - 03/27/22 for CHF, hypoxia and ESRD Patient admitted at [facility] from 03/27/22 - 04/07/22. ProBNP elevated >70,000 on 03/27. volume status improved after dyalisis on 03/27. ECHO showed EF 45% . Cardiology consult recommended outpt ischemic work up. Pt Tells me she finally went to see the Florist Supplies Salesperson . 3 months ago records requested Renal [...] for a follow up, seen at our [facility] after pt reported 7 days w/o BM, progressively starting to experience loss of appetite, nausea, and left CVA tenderness Pt was recommended ED evaluation, it appears she did not go. Plan: GI Consult for chronic constipation. Pt referred to Dr Schroeder in the past Assessment & Plan (09/29/2022 9:49 PM EDT): Reports 7 days w/o BM, progressively starting to experience loss of appetite, nausea, and left CVA tenderness Exam: TTP in all four quadrants, abdomen distended, bowel sounds audible Concern for significant stool burden requiring ED visit for further eval and treatment. Recommended ED evaluation NOW. Pt initially agreed to have ambulance called to clinic, however while call was being placed, declined ED visit today but promised to go to [facility] hospital tomorrow AM. 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 Osteoarthritis of [...] mellitus, type II 11/02/2011 Assessment & Plan (11/03/2024 4:28 PM EDT): Last A1c 5.8 No medication changes, continue with same interventions Assessment & Plan (07/15/2024 4:16 PM EST): [...] requesting Lidoderm patches, Unable to take NSAIDS Urinary incontinence 05/21/1959 Assessment & Plan (12/04/2023 [...] wets herself during HD Using Adult diapers 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 Assessment & Plan (11/03/2024 4:30 PM EDT): Today called N for patient so she had she can be established with a therapist and likely psychiatrist Resolved Problems Problem Noted Date Diagnosed Date Resolved Date COVID-19 05/09/2022 06/27/2022 Encounters Date Type Department Care Team Description 02/13/2025 1:45 PM EDT Office Visit [facility] [address] [place] [address] Melissa Jefferson MD Acute respiratory failure, unspecified whether with hypoxia or hypercapnia (CMS/HCC) (Primary Dx); Dietary counseling; Exercise counseling; Chronic obstructive pulmonary disease, unspecified COPD type (CMS/HCC) 02/13/2025 Telephone [facility] [address] [facility] [place] [place] [address] Melissa Jefferson MD Ambulance transport 02/13/2025 Travel 02/11/2025 Telephone [facility] [address] [facility] [place] [address] Melissa Jefferson MD chart prep 02/05/2025 Patient Outreach [facility] [address] [place] [address] Melissa Jefferson MD Pre-visit Planning (SDOH screening completed on 07/15/2024) 01/15/2025 Refill [facility] [address] [place] [address] Melissa Jefferson MD 01/01/2025 Refill [facility] [address] [place] [address] Melissa Jefferson MD Nausea 12/19/2024 1:00 PM EDT Clinical Support [facility] [address] [place] [phone] Jessica Rahman RN Uncomplicated opioid dependence (CMS/HCC) 12/19/2024 Travel 12/18/2024 Refill [facility] [address] [place] [address] Melissa Jefferson MD Nausea 12/18/2024 Refill [facility] [address] [place] [address] Sammy Reilly MD 12/12/2024 Refill [facility] [address] [place] [phone] Jessica Rahman, RN Uncomplicated opioid dependence (CMS/HCC) 12/12/2024 Refill [facility] [address] [place] [address] Jessica Rahman, RN 12/11/2024 Refill [facility] [address] [place] [address] Nolberto Cates MD Uncomplicated opioid dependence (CMS/HCC) 12/04/2024 Telephone [facility] [address] [place] [address] Sammy Reilly MD Change PCP 12/03/2024 11:30 AM EDT Procedure Visit [facility] [address] [place] [address] Geena Umana CNM Need for vaccination (Primary Dx); Breast cancer screening by mammogram; Encounter for immunization 12/03/2024 Travel 12/02/2024 Telephone [facility] [address] [place] [address] Geena Umana CNM CHART PREP 11/29/2024 Refill [facility] [address] [place] [address] Nolberto Cates MD Constipation, unspecified constipation type 11/22/2024 Refill [facility] [address] [place] [address] Sammy Reilly MD Type 2 diabetes mellitus with chronic kidney disease on chronic dialysis, with long-term current use of insulin ([facility]) 11/18/2024 Refill [facility] [address] [place] [address] Sammy Reilly MD 11/17/2024 Telephone [facility] [address] [place], [place] [phone] Sammy Reilly MD Referral 11/14/2024 Telephone [facility] [address] [place] [address] [phone] Sammy Reilly MD Durable Medical Equipment from Last 3 Months Immunizations Immunization Administration Dates Next Due Hep B, adult 12/03/2024,04/09/2003,11/17/1999 Influenza injectable quadriv alent preservative free 02/26/2021,05/29/2018 Influenza, IIV3, injectable 03/08/2024, 4,02/08/2011 Influenza, Injectable, MDCK, preservative free 07/12/2015 Influenza, seasonal, injecta ble, preservative free 04/19/2015 Influenza, trivalent, adjuvanted 04/19/2015 Moderna Covid-19 Vaccine 12+ 05/17/2021,08/28/19 21,07/30/2020 Pfizer Covid-19 Vaccine 12+ Bivalent 03/03/2022 Pneumococcal Conjugate PCV 20 08/04/2022 Pneumococcal Polysaccharide PPSV23 09/05/2022,,04/30/2003 Tdap 12/03/2024,01/07/2015 Social History Tobacco Use Types Packs/Day Years [...] Mass Index 23.62 02/13/2025 1:41 PM EDT Plan of Treatment Upcoming Encounters Date Type Department Care Team (Late st Contact Info) Description 02/23/2025 2:00 PM EDT Office Visit [facility] OPTOMETRY [address] [place] [address] Mike, Jaja, OD [address] [place] [address] 03/13/2025 10:00 AM EDT Office Visit [facility] [address] [place] [address] Messi Mccollum MD [address] [place] [address] Health Maintenance Due Date Last Done Comments CT Colonography 1955 Dental Prophylaxis 1955 Dental X-Ray: Bitewings 1955 FIT DNA/Cologuard 1955 FIT 1955 FOBT 1955 Sigmoidoscopy 1955 Diabetes: Foot Exam 1966 Eye Exam 1966 Hepatitis A Vaccines (1 of 2 - Risk 2-dose series) 1975 Zoster Vaccines (1 of 2) 2006 RSV Patients and Patients Aged 60 years or older (1 - Risk 60-74 years 1-dose series) 2016 Lipid Panel 11/23/2021 11/23/2020 Dental Oral Exam 09/29/2023 03/30/2023 Mammogram 11/06/2024 11/07/2023, 11/0 11/2018, 01/30/2018 COVID-19 Vaccine ( season) 2025 05/10/2023, 03/03/2022, 05/17/2021, Additional history exists Influenza Vaccine (#1) 2025 , 02/26/2021, 05/29/2018, Additional history exists Depression Monitoring 03/05/2025 09/03/2024, 025 Diabetes: Hemoglobin A1C 03/05/2025 025, 03/11/2024, 10/18/2023, Additional history exists Alcohol/Substance Use Screening 03/11/2025 03/11/2024 SDOH Screening 07/15/2025 07/15/2024 Tobacco Screening 02/13/2026 02/13/2025 Dental X-Ray: Full Mouth 03/31/2026 03/30/2023 HPV/Cotest 12/04/2028 12/05/2023, 05/29/2018 Pap Smear 12/04/2028 12/05/2023 Colonoscopy 05/25/2032 05/25/2022 Colorectal Cancer Screening 05/25/2032 DTaP/Tdap/Td Vaccines (3 - Td or Tdap) 12/03/2034 [...] dialysis, with long-term current use of insulin ([facility]) THINPREP IMAGING PAP AND HPV MRNA E6/E7 [...] Media Lot # [id number] Lot# Expiration Date [id number] Blood 09/03/2024 2:47 PM EDT [facility] POINT OF CARE TEST ENTER/EDIT OR DERABLES Final Result * ThinPrep Imaging Pap and HPV mRNA E6/E7 (12/05/2023 9:53 AM EDT) HPV nRNA E6/E7 Not Detected Not Detected [facility] Comment:Methodology: Transcr iption-Mediated AmplificationThis assay detects E6/E7 viral messenger RNA (mRNA) from 14high-risk HPV types (16,18,31,33,35,39,45,51,52,56,58,59,66,68).Cervical sources are required for HPV testing.If a vaginal source from a patient who has had atotal hysterectomy with removal of cervix wassubmitted, please contact the testing laboratoryfor alternative testing options.For additional information, please refer tohttp://education.RaveMobileSafety.com/faq/JPS819t1(This link if provided for information/educational purposes only.)THIS TEST WAS PERFORMED AT:[facility] [address] [id number] JUNE MD SOURCE: SEE NOTE [facility] Comment:None given Report Status: [facility] Clinical Information: SEE NOTE [facility] Comment:None given LMP: SEE NOTE [facility] Comment:NONE GIVEN Prev. PAP: SEE NOTE [facility] Comment:NONE GIVEN Prev. BX: SEE NOTE [facility] Comment:NONE GIVEN Statement Of Adequacy: SEE NOTE [facility] Comment:Satisfactory for amandeep luation.Endocervical/transformation zone component absent. General Categorization: [facility] Interpretation/Result: SEE NOTE [facility] Comment:Cytology Results: Ne gative for intraepitheliallesion or malignancy. Cytology Comment SEE NOTE [facility] Comment:This Pap test has be en evaluated with computerassisted technology. Charge Entry: SEE NOTE [facility] Comment:DMM, CT(ASCP)CT scre ening location: [place] [address] Review Charge Entry: [facility] Pathologist [facility] PAP Infection [facility] See Note SEE NOTE [facility] Comment:EXPLANATORY NOTE:The Pap is a screening test for cervical cancer. It isnot a diagnostic test and is subject to false negativeand false positive results. It is most reliable when asatisfactory sample, regularly obtained, is submittedwith relevant clinical findings and history, and whenthe Pap result is evaluated along with historic andcurrent clinical information. 12/05/2023 9:53 AM EDT 12/05/2023 4:42 PM EDT Narrative [facility] - 12/12/2023 5:23 PM EDT SEE SCANNED RESULTS IN EMR us Geena Umana CNM LAB PATHOLOGY ORDERABLES Final Result [facility] [address] [place] [phone] * BI Mammogram Screening Tomosynthesis Bilateral (11/07/2023 2:55 PM EDT) Anatomical Region Laterality Modality Breast Bilateral Mammography 11/07/2023 2:55 PM EDT Narrative 12/05/2023 11:54 AM EDT [facility] [address] [place] [address] Mammography Report Signed Patient: Cruz Muller MR#: [id number] : 1955 Acct:[id number] Age/Sex: 68 / F ADM Date: 11/07/23 Loc: HO.MAMMO Attending Dr: Sammy Vicente MD Ordering Physician: Sammy Vicente MD Resu lts: 1Negative Date of Service: 11/07/23 Follow Up: 1 Year From Orig inal Mammogram Procedure(s): MM tomosynthesis screening BI Accession Number(s): [id number] cc: Sammy Vicente MD EXAMINATION: MM SCREENING [...] in OV> 12/05/23 1150 DD/ 1455 TD/TT: Back Shoe Operator: Procedure Note Donotuseinterpreter, Image - 12/05/2023 [facility] [address] [place], [place] [address] Mammography Report Signed Patient: Cruz Muller MMR#: [id number] : 6Acct:[id number] Age/Sex: 68 / FADM Date: 11/07/23 Loc: HO.MAMMO Attending Dr: Sammy Vicente MD Ordering Physician: Sammy Vicente MDResu lts: 1Negative Date of Service: 11/07/23Follow Up: 1 Year From Orig inal Mammogram Procedure(s): MM tomosynthesis screening BI Accession Number(s): [id number] cc: Sammy Vicente MD EXAMINATION: MM SCREENING [...] in OV> 12/05/23 1150 DD/ 1455 TD/TT: Back Shoe Operator: Sammy Whitehead MD IMG BI PROCEDURES Fin [...] [facility] Comment: Reference range: <100 Desirable range <100 mg/dL for primary prevention; <70 mg/dL for patients with CHD or diabetic patients with > or = 2 CHD risk factors. LDL-C is now calculated using the Angelica calculation, which is a validated novel method providing better accuracy than the Friedewald equation in the estimation of LDL-C. Chaitanya TAVAREZ et al. CARLOS. 2013;310(19): 4642-9401 (http://education.MyCityWay.Conclusive Analytics/faq/RWF754) Non-HDL Cholesterol 175(H) <130 mg/dL (calc) [facility] Comment: For patients with diabetes plus 1 major ASCVD risk factor, treating to a non-HDL-C goal of <100 mg/dL (LDL-C of <70 mg/dL) is considered a therapeutic option. Triglycerides 213(H) <150 mg/dL [facility] Comment: If a non-fasting specimen was collected, consider repeat triglyceride testing on a fasting specimen if clinically indicated. Nico et al. J. of Clin. Lipidol. 2015;9:129-169. 11/23/2020 9:54 AM EDT us Sammy Whitehead MD LAB BLOOD ORDERABLES Final Result [facility] [address] [place] [address], from Last 3 Months or Most Recently Relevant to Health Maintenance Insurance [facility] [employer] (HMO D-SNP) [facility] STAND[facility] Care Teams Air Traffic Control Operator Relationship Specialty Start Date End Date Melissa Jefferson MD [address] [place] [phone] PCP - General Family Medicine 12/04/24 mSilica 04/08/22 Tj Larose MD Pump Installer Nephrology 04/10/24
--- OUTSIDE RECORDS SUMMARY | 2025-02-13 18:09 | XMS_ITS | Clinical Summary ---
Author Organization [facility] Address [address] [address] Phone Care Team Providers Care Solid Waste Disposal Manager Name Role Phone Unavailable Primary Care [...] Encounters Date Type Department Care Team Description 02/07/2025 Treatment [facility] [address] [phone] Tj Larose MD End stage renal disease; Dependence on renal dialysis 01/31/2025 Treatment [facility] [address] [phone] Tj Larose MD End stage renal disease; Dependence on renal dialysis 01/24/2025 Treatment [facility] [address] [phone] Tj Larose MD End stage renal disease; Dependence on renal dialysis 01/22/2025 Orders Only [facility] [address] [phone] Tj Larose MD 01/17/2025 Treatment [facility] [address] [phone] Tj Larose MD End stage renal disease; Dependence on renal dialysis 01/13/2025 Treatment [facility] [address] [phone] Tj Larose MD End stage renal disease; Dependence on renal dialysis 01/06/2025 Treatment [facility] [address] [phone] Tj Larose MD End stage renal disease; Dependence on renal dialysis 01/01/2025 Treatment [facility] [address] [phone] Tj Larose MD End stage renal disease; Dependence on renal dialysis 12/13/2024 Treatment [facility] [address] [phone] Tj Larose MD End stage renal disease; Dependence on renal dialysis 12/09/2024 Treatment [facility] [address] [phone] Tj Larose MD End stage renal disease; Dependence on renal dialysis 12/04/2024 Treatment [facility] [address] [phone] Tj Larose MD End stage renal disease; Dependence on renal dialysis 11/20/2024 Treatment [facility] [address] [phone] Tj Larose MD End stage renal disease; Dependence on renal dialysis 11/13/2024 TCM in Dialysis Clinic [facility] [address] [phone] Tj Larose MD 11/13/2024 Treatment [facility] [address] [phone] Tj Larose MD End stage renal disease; Dependence on renal dialysis from Last 3 Months Family History Medical [...] 5 - Risk Dialysis 4-dose series) 1976 12/03/2024, 04/09/2003, 11/17/1999 Colorectal Cancer Screening: Annual FOBT 2005 Colorectal Cancer Screening: Colonoscopy 2005 Colorectal Cancer Screening: Sigmoidoscopy 2005 Diabetes: Ophthalmology Exam 05/30/2024 Diabetes: Pedal Pulse Checked 05/30/2024 Diabetes: Sensory Foot Exam 05/30/2024 Diabetes: Visual Foot Exam 05/30/2024 Influenza Vaccine (#1) 2025 , 05/29/2018, 07/12/2015, Additional history exists Diabetes: Hemoglobin A1C 02/18/2025 025, 09/03/2024, 08/21/2024, Additional history exists Pneumococcal Vaccine: 50+ Years Completed 09/05/2022, 08/04/2022, 07/12/2015, Additional history exists Pneumococcal Vaccine: Peds ( 0 to 5 Years) and At-Risk Patients (6 to 49 Years) Discontinued 09/05/2022, 08/04/2022, 07/12/2015, Additional history exists Procedures Procedure Name Priority Date/Time Associated Diagnosis Comments HEMOGLOBIN Routine 02/12/2025 3:00 AM EDT PHOSPHATE ( PHOSPHORUS) Routine 02/12/2025 3:00 AM EDT LIH (HC) Routine 02/12/2025 3:00 AM EDT HEMOGLOBIN Routine 02/07/2025 3:00 AM EDT COLLECTION DATE (HC) Routine 02/07/2025 3:00 AM EDT HEMOGLOBIN Routine 02/05/2025 3:00 AM EDT HEPATITIS B SURFACE ANTIGEN W/REFL CONFIRM Routine 01/22/2025 3:00 AM EDT TRANSFERRIN SATURATION Routine 3:00 AM EDT PROTEIN, TOTAL, SERUM Routine 01/22/2025 3:00 AM EDT ELECTROLYTE PANEL Routine 01/22/2025 3:0 0 AM EDT MAGNESIUM Routine 01/22/2025 3:00 AM EDT LIH (HC) Routine 01/22/2025 3:00 AM EDT GLUCOSE, RANDOM Routine 01/22/2025 3:00 AM EDT LACTATE DEHYDROGENASE Routine 01/22/2025 3:00 AM EDT BUN/CREATININE RATIO Routine 01/22/2025 3:00 AM EDT CREATININE, SERUM Routine 01/22/2025 3:0 0 AM EDT BILIRUBIN, TOTAL Routine 01/22/2025 3:00 AM EDT AST Routine 01/22/2025 3:00 AM EDT ALT Routine 01/22/2025 3:00 AM EDT ALKALINE PHOSPHATASE Routine 01/22/2025 3:00 AM EDT CALCIUM PHOSPHORUS PRODUCT, ADJUSTED (HC) Routine 01/22/2025 3:00 AM EDT FERRITIN Routine 01/22/2025 3:00 AM EDT KT/V NATURAL LOG, URR (HC) Routine 01/22/2025 3:00 AM EDT CBC AND DIFFERENTIAL Routine 01/22/2025 3:00 AM EDT LIH (HC) Routine 01/15/2025 3:00 AM EDT POTASSIUM Routine 01/15/2025 3:00 AM EDT HEMOGLOBIN Routine 01/15/2025 3:00 AM EDT LIH (HC) Routine 01/08/2025 3:00 AM EDT POTASSIUM Routine 01/08/2025 3:00 AM EDT HEMOGLOBIN Routine 01/08/2025 3:00 AM EDT LIH (HC) Routine 01/01/2025 3:00 AM EDT POTASSIUM Routine 01/01/2025 3:00 AM EDT COLLECTION DATE (HC) Routine 12/27/2024 3:00 AM EDT LIH (HC) Routine 12/27/2024 3:00 AM EDT KT/V NATURAL LOG, URR (HC) Routine 12/27/2024 3:00 AM EDT CBC AND DIFFERENTIAL Routine 12/25/2024 3:00 AM EDT HEPATITIS B SURFACE ANTIGEN W/REFL CONFIRM Routine 12/25/2024 3:00 AM EDT TRANSFERRIN SATURATION Routine 3:00 AM EDT PROTEIN, TOTAL, SERUM Routine 12/25/2024 3:00 AM EDT MAGNESIUM Routine 12/25/2024 3:00 AM EDT KT/V NATURAL LOG, URR (HC) Routine 12/25/2024 3:00 AM EDT ELECTROLYTE PANEL Routine 12/25/2024 3:0 0 AM EDT LIH (HC) Routine 12/25/2024 3:00 AM EDT LACTATE DEHYDROGENASE Routine 12/25/2024 3:00 AM EDT GLUCOSE, RANDOM Routine 12/25/2024 3:00 AM EDT CREATININE, SERUM Routine 12/25/2024 3:0 0 AM EDT BUN/CREATININE RATIO Routine 12/25/2024 3:00 AM EDT BILIRUBIN, TOTAL Routine 12/25/2024 3:00 AM EDT ALT Routine 12/25/2024 3:00 AM EDT AST Routine 12/25/2024 3:00 AM EDT CALCIUM PHOSPHORUS PRODUCT, ADJUSTED (HC) Routine 12/25/2024 3:00 AM EDT ALKALINE PHOSPHATASE Routine 12/25/2024 3:00 AM EDT FERRITIN Routine 12/25/2024 3:00 AM EDT HEMOGLOBIN Routine 12/02/2024 3:00 AM EDT LIH (HC) Routine 11/22/2024 3:00 AM EDT CO2, TOTAL Routine 11/22/2024 3:00 AM EDT HEPATITIS C ABS W/REFLEX RNA DETECTR Routine 11/18/2024 3:00 AM EDT CONFIRMATION TEST HCV Routine 11/18/2024 3:00 AM EDT HEPATITIS B SURFACE ANTIGEN W/REFL CONFIRM Routine 11/18/2024 3:00 AM EDT HEMOGLOBIN A1C Routine 11/18/2024 3:00 AM EDT TRANSFERRIN SATURATION Routine 3:00 AM EDT PROTEIN, TOTAL, SERUM Routine 11/18/2024 3:00 AM EDT ELECTROLYTE PANEL Routine 11/18/2024 3:0 0 AM EDT MAGNESIUM Routine 11/18/2024 3:00 AM EDT LIPID PANEL Routine 11/18/2024 3:00 AM EDT LACTATE DEHYDROGENASE Routine 11/18/2024 3:00 AM EDT LIH (HC) Routine 11/18/2024 3:00 AM EDT CREATININE, SERUM Routine 11/18/2024 3:0 0 AM EDT GLUCOSE, RANDOM Routine 11/18/2024 3:00 AM EDT BUN/CREATININE RATIO Routine 11/18/2024 3:00 AM EDT BILIRUBIN, TOTAL Routine 11/18/2024 3:0 0 AM EDT AST Routine 11/18/2024 3:00 AM EDT ALT Routine 11/18/2024 3:00 AM EDT ALKALINE PHOSPHATASE Routine 11/18/2024 3:00 AM EDT CALCIUM PHOSPHORUS PRODUCT, ADJUSTED (HC) Routine 11/18/2024 3:00 AM EDT PTH, INTACT Routine 11/18/2024 3:00 AM EDT FERRITIN Routine 11/18/2024 3:00 AM EDT CBC AND DIFFERENTIAL Routine 11/18/2024 3:00 AM EDT KT/V NATURAL LOG, URR (HC) Routine 11/18/2024 3:00 AM EDT from Last 3 Months Results * LIH (02/12/2025 3:00 AM EDT) Only the most recent of9 resultswithin the time period is included. Lipemia Normal Normal [facility] Icterus Normal Normal [facility] Hemolysis Normal Normal [facility] 02/12/2025 3:00 AM EDT 02/13/2025 12:29 PM EDT us Tj Larose MD LAB HISTORICA [id number] RESULTS Final Result Performing Organization Address [facility] Co de Phone Number APS [facility] [address] [place] [address] * (ABNORMAL) Hemoglobin (02/12/2025 3:00 AM EDT) Only the most recent of6 resultswithin the time period is included. Hgb 8.8(L) 11.2 - 15.7 g/dL [facility] Hemoglobin x 3 26.4(L) 33.6 - 47.1 g/dL [facility] 02/12/2025 3:00 AM EDT 02/13/2025 12:55 PM EDT us Tj Larose MD LAB BLOOD ORDERABLES Final Result Performing Organization Address [facility] Co de Phone Number APS [facility] [address] [place] [address] * (ABNORMAL) Phosphorus (02/12/2025 3:00 AM EDT) Phosphorus, Serum 7.0(H) 2.5 - 5.0 mg/dL [facility] 02/12/2025 3:00 AM EDT 02/13/2025 12:29 PM EDT us Tj Larose MD LAB BLOOD ORDERABLES Final Result Performing Organization Address [facility] Co de Phone Number [facility]PS [facility] [address] [place] [address] * Collection Date (02/07/2025 3:00 AM EDT) Only the most recent of2 resultswithin the time period is included. Collection Date See Comment [facility] Comment: Patient sample received may exceed specimen stability, based on the collection date electronically provided. When reviewing patient results, verify collection information and consider specimen stability before acting on any critical or panic results. 02/07/2025 3:00 AM EDT Tj Larose MD LAB HISTORICA [id number] RESULTS Final Result Performing Organization Address [facility] de Phone Number APS [facility] [address] [place] [address] * (ABNORMAL) Kt/V Natural Log, URR (01/22/2025 3:00 AM EDT) Only the most recent of4 resultswithin the time period is included. Treatment Time 213 min [facility] Pre-Weight, lb 62.4 kg [facility] Post-Weight, lb 57.5 kg [facility] Ultrafiltration Rate 24(H) <=13 mL/kg/hr [facility] Comment: Recommend achieving Ultrafiltration Rate (UFR) <=10 mL/kg/hr References: Tanja MCCRACKEN et al. Kidney Int. 2010; 79(2):250-257 BUN 49(H) 7 - 25 mg/dL [facility] BUN Post Dialysis 14 7 - 25 mg/dL [facility] UREA REDUCTION RATIO (%) 71 >=65 % [facility] Kt/V Natural Log 1.61 >=1.2 [facility] 01/22/2025 3:00 AM EDT 01/23/2025 11:54 AM EDT Tj Larose MD LAB HISTORICA [id number] RESULTS Final Result Performing Organization Address [facility]/ZIP Co de Phone Number [facility]PS [facility] [address] [place] [address] * (ABNORMAL) Calcium Phosphorus Product, Adjusted (01/22/2025 3:00 AM EDT) Only the most recent of3 resultswithin the time period is included. Albumin 4.2 3.6 - 5.4 g/dL [facility] Calcium 9.1 8.6 - 10.3 mg/dL [facility] Phosphorus, Serum 5.6(H) 2.5 - 5.0 mg/dL [facility] Ca*PO4 51.0 <55.0 mg2/dL2 [facility] Calcium, Adjusted Total 9.1 8.6 - 10.3 mg/dL [facility] CA*PO4 CORRCTD 51.0 <55.0 mg2/dL2 [facility] 01/22/2025 3:00 AM EDT 01/23/2025 12:14 PM EDT us Tj Larose MD LAB HISTORICA [id number] RESULTS Final Result Performing Organization Address [facility] Co de Phone Number [facility] [address] [place] [address] * Hepatitis B Surface Ag w/Reflex Confirmation (01/22/2025 3:00 AM EDT) Only the most recent of3 resultswithin the time period is included. Hep B Surface Antigen Negative Negative [facility] 01/22/2025 3:00 AM EDT 01/23/2025 12:14 PM EDT us Tj Larose MD LAB BLOOD ORDERABLES Final Result Performing Organization Address [facility] Co de Phone Number [facility] [address] [place] [address] * BUN/CREATININE RATIO (01/22/2025 3:00 AM EDT) Only the most recent of3 resultswithin the time period is included. BUN/Creatinine Ratio 6.8 <=23.0 [facility] 01/22/2025 3:00 AM EDT 01/23/2025 12:14 PM EDT us Tj Larose MD LAB HISTORICA [id number] RESULTS Final Result Performing Organization Address [facility] Co de Phone Number [facility]PS [facility] [address] [place] [address] * (ABNORMAL) TSAT (01/22/2025 3:00 AM EDT) Only the most recent of3 resultswithin the time period is included. [facility] Iron 67 50 - 170 ug/dL [facility] Transferrin 157(L) 250 - 380 mg/dL [facility] TIBC 220 211 - 406 ug/dL [facility] Iron Saturation (TSat) 30 22 - 52 % [facility] 01/22/2025 3:00 AM EDT 01/23/2025 12:14 PM EDT Tj Larose MD LAB BLOOD ORDERABLES Final Result Performing Organization Address [facility] de Phone Number [facility] [address] [place] [address] * (ABNORMAL) CBC and Differential (01/22/2025 3:00 AM EDT) Only the most recent of3 resultswithin the time period is included. [facility] DIFFERENTIAL MANUAL, 2 Not Indicated [facility] White Blood Cells 6.5 4.0 - 10.0 K/uL [facility] RBC 2.98(L) 3.93 - 5.22 M/uL [facility] Hgb 9.5(L) 11.2 - 15.7 g/dL [facility] Hemoglobin x 3 28.5(L) 33.6 - 47.1 g/dL [facility] Hematocrit 30.0(L) 34.1 - 44.9 % [facility] MCV 100.7(H) 79.4 - 94.8 fL [facility] MCH 31.9 25.6 - 32.2 pg [facility] MCHC 31.7(L) 32.2 - 35.5 g/dL [facility] RDW 13.9 11.7 - 14.4 % [facility] Platelets 263 182 - 369 K/uL [facility] MPV 11.2 9.2 - 12.8 fL [facility] Neutrophils Relative 67.6 34.0 - 71.1 % [facility] Lymphocytes Relative 19.0(L) 19.3 - 51.7 % [facility] Monocytes 9.6 4.7 - 12.5 % [facility] Eosinophils Relative 2.5 0.7 - 5.8 % [facility] Basophils Relative 0.8 0.1 - 1.2 % [facility] Immature Granulocytes 0.5 0.0 - 1.0 % [facility] 01/22/2025 3:00 AM EDT 01/23/2025 11:53 AM EDT Tj Larose MD LAB BLOOD ORDERABLES Final Result Performing Organization Address [facility]/ZIP Co de Phone Number [facility] [address] [place] [address] * ALT (01/22/2025 3:00 AM EDT) Only the most recent of3 resultswithin the time period is included. ALT (SGPT) 12 10 - 49 U/L [facility] 01/22/2025 3:00 AM EDT 01/23/2025 12:14 PM EDT Tj Larose MD LAB BLOOD ORDERABLES Final Result Performing Organization Address [facility] Co de Phone Number [facility] [address] [place] [address] * AST (01/22/2025 3:00 AM EDT) Only the most recent of3 resultswithin the time period is included. AST (SGOT) 23 <34 U/L [facility] 01/22/2025 3:00 AM EDT 01/23/2025 12:14 PM EDT Tj Larose MD LAB BLOOD ORDERABLES Final Result Performing Organization Address [facility] Co de Phone Number [facility] [address] [place] [address] * Protein, total (01/22/2025 3:00 AM EDT) Only the most recent of3 resultswithin the time period is included. Total Protein 7.2 6.4 - 8.9 g/dL [facility] 01/22/2025 3:00 AM EDT 01/23/2025 12:14 PM EDT Tj Larose MD LAB BLOOD ORDERABLES Final Result Performing Organization Address [facility] Co de Phone Number [facility] [address] [place] [address] * (ABNORMAL) Alkaline phosphatase (01/22/2025 3:00 AM EDT) Only the most recent of3 resultswithin the time period is included. Alkaline Phosphatase 158(H) 46 - 116 U/L [facility] 01/22/2025 3:00 AM EDT 01/23/2025 12:14 PM EDT Tj Larose MD LAB BLOOD ORDERABLES Final Result Performing Organization Address [facility] Co de Phone Number [facility] [address] [place] [address] * Magnesium (01/22/2025 3:00 AM EDT) Only the most recent of3 resultswithin the time period is included. Magnesium 2.4 1.9 - 2.7 mg/dL [facility] 01/22/2025 3:00 AM EDT 01/23/2025 12:14 PM EDT Tj Larose MD LAB BLOOD ORDERABLES Final Result Performing Organization Address [facility] Co de Phone Number [facility] [address] [place] [address] * (ABNORMAL) Lactate dehydrogenase (01/22/2025 3:00 AM EDT) Only the most recent of3 resultswithin the time period is included. LDH 297(H) 120 - 246 U/L [facility] 01/22/2025 3:00 AM EDT 01/23/2025 12:14 PM EDT us Tj Larose MD LAB BLOOD ORDERABLES Final Result Performing Organization Address [facility]/ZIP Co de Phone Number [facility] [address] [place] [address] * (ABNORMAL) Glucose, random (01/22/2025 3:00 AM EDT) Only the most recent of3 resultswithin the time period is included. Glucose 255(H) 70 - 99 mg/dL [facility] Comment: ADA guidelines outline the following fasting glucose ranges: Normal: <100 Prediabetes: 100-125 Diabetes: >125 01/22/2025 3:00 AM EDT 01/23/2025 12:14 PM EDT us Tj Larose MD LAB BLOOD ORDERABLES Final Result Performing Organization Address [facility] Co de Phone Number [facility] [address] [place] [address] * (ABNORMAL) Ferritin (01/22/2025 3:00 AM EDT) Only the most recent of3 resultswithin the time period is included. Ferritin 1,571(H) 10 - 291 ng/mL [facility] 01/22/2025 3:00 AM EDT 01/23/2025 12:14 PM EDT Tj Larose MD LAB BLOOD ORDERABLES Final Result Performing Organization Address [facility] Co de Phone Number [facility] [address] [place] [address] * (ABNORMAL) Creatinine, serum (01/22/2025 3:00 AM EDT) Only the most recent of3 resultswithin the time period is included. Creatinine 7.25(H) 0.55 - 1.02 mg/dL [facility] 01/22/2025 3:00 AM EDT 01/23/2025 12:14 PM EDT us Tj Larose MD LAB BLOOD ORDERABLES Final Result Performing Organization Address [facility] Co de Phone Number [facility] [address] [place] [address] * (ABNORMAL) Bilirubin, total (01/22/2025 3:00 AM EDT) Only the most recent of3 resultswithin the time period is included. Total Bilirubin <0.2(L) 0.3 - 1.2 mg/dL [facility] 01/22/2025 3:00 AM EDT 01/23/2025 12:14 PM EDT us Tj Larose MD LAB BLOOD ORDERABLES Final Result Performing Organization Address [facility] de Phone Number [facility] [address] [place] [address] * (ABNORMAL) Electrolyte panel (01/22/2025 3:00 AM EDT) Only the most recent of3 resultswithin the time period is included. Sodium 133(L) 136 - 145 mEq/L [facility] Potassium 4.6 3.4 - 5.0 mEq/L [facility] Chloride 93(L) 98 - 107 mEq/L [facility] Bicarbonate (CO2) 26 21 - 31 mEq/L [facility] Anion Gap 14 3 - 14 mEq/L [facility] 01/22/2025 3:00 AM EDT 01/23/2025 12:14 PM EDT us Tj Larose MD LAB BLOOD ORDERABLES Final Result Performing Organization Address [facility] Co de Phone Number [facility] [address] [place] [address] * Potassium (01/15/2025 3:00 AM EDT) Only the most recent of3 resultswithin the time period is included. Potassium 4.2 3.4 - 5.0 mEq/L [facility] 01/15/2025 3:00 AM EDT 01/16/2025 1:02 PM EDT us Tj Larose MD LAB BLOOD ORDERABLES Final Result Performing Organization Address [facility] de Phone Number [facility] [address] [place] [address] * CO2 (11/22/2024 3:00 AM EDT) Pathologist [facility] Bicarbonate (CO2) 25 21 - 31 mEq/L [facility] 11/22/2024 3:00 AM EDT 11/24/2024 12:48 PM EDT us Tj Larose MD LAB BLOOD ORDERABLES Final Result Performing Organization Address [facility] de Phone Number [facility]PS [facility] [address] [place] [address] * Confirmation Test HCV (11/18/2024 3:00 AM EDT) Pathologist [facility] Hep C Ab Confirmation Not needed [facility] 11/18/2024 3:00 AM EDT 11/19/2024 12:44 PM EDT us Tj Larose MD LAB BLOOD ORDERABLES Final Result Performing Organization Address [facility] de Phone Number [facility] [address] [place] [address] * HEPATITIS C ABS W/REFLEX RNA DETECTR (11/18/2024 3:00 AM EDT) Hep C Virus Ab Non-Reacti ve Non-Reacti ve [facility] 11/18/2024 3:00 AM EDT 11/19/2024 12:26 PM EDT us Tj Larose MD LAB HISTORICA [id number] RESULTS Final Result Performing Organization Address [facility] de Phone Number [facility] [address] [place] [address] * PTH, Intact (11/18/2024 3:00 AM EDT) PTH, Intact 270 160 - 721 pg/mL [facility] Comment: Suggested (KDIGO) ESRD maintenance range is two to nine times the upper normal limit (80.1 pg/mL) for the laboratory. 11/18/2024 3:00 AM EDT 11/19/2024 12:26 PM EDT Tj Larose MD LAB BLOOD ORDERABLES Final Result Performing Organization Address [facility] de Phone Number [facility] [address] [place] [address] * (ABNORMAL) Hemoglobin A1c (11/18/2024 3:00 AM EDT) Hemoglobin A1C 5.9(H) <5.7 % [facility] Comment: Methodology: Enzymatic Normal: <5.7% Prediabetes: 5.7-6.4% Diabetes: >6.4% Diabetic Glucose Control Evaluation: Therapeutic action suggested at >8.0% ADA recommends a glycemic goal of <7.0% 11/18/2024 3:00 AM EDT 11/19/2024 12:44 PM EDT Tj Larose MD LAB BLOOD ORDERABLES Final Result Performing Organization Address [facility] de Phone Number [facility] [address] [place] [address] * (ABNORMAL) Lipid panel (11/18/2024 3:00 AM EDT) Cholesterol 135 mg/dL [facility] Comment: Optimal: <200 Borderline: 200-239 High Risk: >239 Triglycerides 88 mg/dL [facility] Comment: Optimal: <150 Borderline: 150-200 High Risk: >200 HDL 52(L) mg/dL [facility] Comment: Optimal: >59 Borderline: 40-59 High Risk: <40 LDL-Calc 65 mg/dL [facility] Comment: Optimal: <100 Borderline: 100-159 High Risk: >159 VLDL Cholesterol Carlos 18 mg/dL [facility] Comment: Optimal: <30 Borderline: 30-40 High Risk: >40 Chol/HDL Ratio 2.6 [facility] Comment: Optimal: <3.3 High Risk: >6.2 11/18/2024 3:00 AM EDT 11/19/2024 12:26 PM EDT us Tj Larose MD LAB BLOOD ORDERABLES Final Result [facility] [address] [place] [address] from Last 3 Months Insurance [facility] ([id number]) [facility] ([id number])
--- OUTSIDE RECORDS SUMMARY | 2025-02-13 18:09 | XMS_ITS | Encounter Summary ---
Author Organization [employer] Address [address] [facility] [address] [place] [address] Care Team Providers Care Auto Hiker Name Role Phone Sammy Reilly MD Primary Care Provide r Melissa Jefferson MD Primary Care Provider [phone] Reason for Visit * Reason Onset Date Comments Referral 09/14/2022 Encounter Details Date Type Department Care Team ([facility] st Contact Info) Description 09/14/2022 Telephone [facility] MEDICINE [address] [place], [place] [phone] Sammy Reilly MD [address] [place], [place] [phone] Referral Social History Tobacco Use Types Packs/Day [...] appt. Heidy stated Chelly who is her BEFORE SCHOOL is the only who fully care for her and keeps her going to appts, she also has [facility] that come 2x a day and an [employer] that comes to check up on her as well. Heidy verbalized understanding and denied having any further questions or concerns at this time. * Telephone Encounter - Brandee Christie - 09/14/2022 10:32 AM EDT Tc from Heidy Bahena Nurse with [facility] requesting a status on other two referral for Pulmonary and GI. Please contact Heidy at [phone] documented in this encounter Plan of Treatment Upcoming Encounters Date Type Department Care Team (Late st Contact Info) Description 02/23/2025 2:00 PM EDT Office Visit [facility] OPTOMETRY [address] [place] [address] Jaja Mckeon, VALERIA [address] [place] [address] 03/13/2025 10:00 AM EDT Office Visit [facility] MEDICINE [address] [place] [address] Messi Mccollum MD [address] [place] [address] documented as of this encounter Visit Diagnoses Diagnosis Uncomplicated opioid dependence (CMS/HCC) documented in this encounter Care Teams Auto Hiker Relationship Specialty Start Date End Date Sammy eRilly MD [address] [place] [address] PCP - General Internal Medicine 12/23/13 12/03/24 Melissa Jefferson MD [address] [place] [address] PCP - General Family Medicine 12/04/24 [employer] 04/08/22 Tj Larose MD [employer] [facility] Nephrology 04/10/24 documented as of this encounter
[2025-02-13 18:11] LABS: Venous Blood Gas Refer to POC result
[2025-02-13 18:28] LABS: Alanine Aminotransferase 27 U/L (0-31); Albumin Level 4.2 g/dL (3.5-5.0); Alkaline Phosphatase 156 U/L (39-117); Anion Gap 18 (12-20); Aspartate Amino Transferase 75 U/L (5-31); Blood Urea Nitrogen 41 mg/dL (9-16); Calcium 9.0 mg/dL (8.4-10.2); Carbon Dioxide 30 mmol/L (22-29); Chloride 94 mmol/L (96-108); Creatinine Clr Calc Pharmacy 8.7; Estimated Glomerular Filt Rate 8; Lipase 9 U/L (8-78); Magnesium 2.3 mg/dL (1.6-2.6); Potassium 3.8 mmol/L (3.3-5.1); Sodium 138 mmol/L (135-145); Total Protein 7.8 g/dL (6.5-8.0)
--- NOTE | 2025-02-13 18:28 | ECG_ITS ---
Test Reason : sob Blood Pressure : */* mmHG Vent. Rate : 79 BPM Atrial Rate : 79 BPM P-R Int : 170 ms QRS Dur : 90 ms QT Int : 418 ms P-R-T Axes : * -25 129 degrees QTcB Int : 479 ms Normal sinus rhythm Voltage criteria for left ventricular hypertrophy ( R in aVL , Sokolow-Burton , [place] product ) T wave abnormality, consider anterior ischemia Prolonged QT Abnormal ECG When compared with ECG of 13-Feb-2025 17:32, No significant change was found Referred By: Daniel Fernandez Electronically Signed By: Charan Hankins
[2025-02-13 18:40] LABS: Troponin-I High Sensitivity 81.8 ng/L (<3.5-17.0)
[2025-02-13 18:48] LABS: Resp Syncy Virus RNA Qual PCR NEGATIVE (Negative); SARS COV2 PCR INHOUSE NEGATIVE (Negative)
[2025-02-13 19:20] LABS: NT Pro B Type Natriuretic Pept 69714.8 pg/mL (<300)
[2025-02-13] MEDS: iohexoL 350 MG/ML 100 ML INFUS..BTL IV (21:03)
[2025-02-13 21:15] LABS: Procalcitonin 0.44 ng/mL
--- NOTE | 2025-02-13 21:15 | HO.NURTONUR ---
Addendum entered by Jefry Galvan 02/13/25 21:17: Being admitted for Hypoxia Original Note: 69 yr old, female, NKA with a history of end-stage renal disease currently on dialysis. Baseline not on oxygen. Presents today with having increasing SOB. Hx of heart failure with preserved EF. Hx of end-stage renal disease patient claims she actually got dialyzed yesterday. She is a Sunday dialysis pt, got dialysis on . Patient complaining of coughing shortness of breath was seen at the clinic was noted to have a low oxygenation of 70% on room air. Placed on 4 L of oxygen satting 96% sent in for further evaluation. Of note patient also complaining of rectal pain. Has a history of rectal prolapse. She has a 22 in the left forearm nothing running at this time She was placed on the oxymask 4L d/t o2 dropping to 89% with mouth breathing. Current SPO2 99%. SHe recieved a CXR Findings: Prominent interstitial lung markings. Small bilateral pleural effusion. There is fluid tracking along the right side of the fissure. There is enlargement of the cardiopericardial silhouette. Dialysis catheter. No acute fracture. IMPRESSION: Pulmonary vascular congestion. New fluid tracking along the right side fissure. Small pleural effusion. CT pending Consideration of admission/observation: Escalation of care including admission/observation considered
--- NOTE | 2025-02-13 22:39 | PM.IMHP ---
History of Present Illness Date of Service: 02/13/25 Attending physician on admission: Cristian Lowery Chief Complaint: hypoxia, dyspnea Patient is a 69-year-old Slovak-speaking female with a past medical history significant for pulmonary hypertension, asthma/COPD overlap, hypertension, diabetes, ESRD TTS, HFpEF, hypertrophic cardiomyopathy, CKD, prolapsed rectum and recent admission at [facility] for hypertensive emergency with flash pulmonary edema placed on BiPAP with dialysis, who presented to the ED due to hypoxia and dyspnea. Patient was seen at [facility] earlier today was found to be saturating at 70% on room air and was dyspneic. She was placed on 4 L via NC and improved to 96%. She is feeling short of breath, wheezing with productive cough. Her largest complaint is severe rectal pain. She has a rectal prolapse which she reports is very painful. In the ED provider was able to replace the prolapse however the patient is still having significant pain. Review of Systems Constitutional: Constitutional: Denies body ache(s), Denies chills, Denies fatigue, Denies fever(s) and Denies headache(s) Eyes: Eyes: Denies change in vision ENT: Denies headache(s), Reports nasal congestion and Reports sore throat Cardiovascular: Cardiovascular: Denies chest pain, Denies rapid heart rate, Denies leg edema, Denies lightheadedness and Reports dyspnea Respiratory: Respiratory: Reports chest congestion, Reports cough, Reports dyspnea and Reports wheezing Gastrointestinal: Gastrointestinal: Denies abdominal pain, Denies nausea and Denies vomiting Genitourinary: Genitourinary: Denies dysuria and Denies urinary urgency Musculoskeletal: Musculoskeletal: Denies myalgias Integumentary/Breasts: Skin/Breast: Denies rash Neurologic: Denies confusion and Denies headache(s) Psychiatric: Psychiatric: Denies confusion Endocrine: Endocrine: Denies fatigue Hematologic/Lymphatic: Hematologic/Lymphatic: Denies easy bleeding and Denies easy bruising Allergic/Immunologic: Allergic/Immunologic: Reports wheezing [facility] Medical History Chronic renal failure Essential hypertension ESRD (end stage renal disease) on dialysis Diabetes mellitus Hemorrhoids that prolapse with straining, but retract spontaneously Hemorrhoids with complication ESRD on dialysis Delirium Sepsis Tachycardia Leukocytosis Fever End stage chronic kidney disease Congestive heart failure with left ventricular dysfunction ESRD (end stage renal disease) Hypertension Pulmonary congestion COVID-19 virus infection Asthma with COPD with exacerbation COVID ESRD (end stage renal disease) Hypertrophic cardiomyopathy Acute exacerbation of chronic obstructive pulmonary disease (COPD) Heart failure with preserved ejection fraction Constipation End stage renal disease on dialysis Ascites Anasarca Ischemic colitis Acute GI bleeding Anemia Dialysis patient, noncompliant Anemia in chronic kidney disease Opioid withdrawal Essential hypertension Family History Other Hypertension Surgical History No pertinent past surgical history Social History Household Members: Family Housing: Apartment Do you presently have visiting nurse or other home services: Yes (vna) Alcohol intake: never Comment: pt in dialysis at this time. Patient Tobacco Use Status: Current everyday Tobacco user Tobacco use type: Cigarette Cigarette Packs Per Day: 2 Cigarettes Per Day: 1 Years Smoked: 50 +/- Smoked in Last 30 Days: Yes e-Cigarette/Vaping Use: Never Used Second Hand Smoke Exposure: No Use of substances other than those prescribed or required for medical reasons: No Substance Use Type: Marijuana Advance Directives: Yes Advance Directives on File: Yes Advance Directives Date on File: 04/19/23 service: No Current occupational status: disabled Meds Allergies Allergy/AdvReac Type Severity Reaction Status Date / Time No Known Allergies Allergy Verified 02/13/25 15:09 Active Medications: Current Medications Acetaminophen (Acetaminophen 325 Mg Tablet) 650 mg PO Q6H PRN PRN Reason: Pain, Mild 1-3,fever,headache Albuterol/Ipratropium (Albuterol/Iprat 2.5/0.5mg 3 Ml Ampul.Neb) 3 ml INHALE RQ4H WHILE AWAKE PHAN Calcium Carbonate (Calcium Carbonate 750 Mg Tab.Chew) 750 mg PO Q4H PRN PRN Reason: Heartburn Heparin Sodium (Porcine) (Heparin Sodium,Porcine 5,000 Unit/Ml Vial) 5,000 unit SUBCUT Q12H PHAN Cefepime HCl 1 gm/ Sodium (Chloride) 50 mls @ 100 mls/hr IV Q24H PHAN Magnesium Hydroxide (Milk Of Magnesia 30 Ml Oral.Susp) 30 ml PO DAILY PRN PRN Reason: Constipation Melatonin (Melatonin 3 Mg Tablet) 6 mg PO BEDTIME PRN PRN Reason: Insomnia Ondansetron HCl (Ondansetron Hcl 4 Mg/2 Ml Vial) 4 mg IVPUSH Q8H PRN PRN Reason: Nausea and Vomiting Oxycodone HCl (Oxycodone Hcl Immed Release 5 Mg Tablet) 5 mg PO Q6H PRN PRN Reason: Pain, Severe (Pain Scale 7-10) Pharmacy Consult (Consult Rx Vancomycin Dosing) 1 each MISCELLANE DAILY PRN PRN Reason: Consult order Sodium Chloride (0.9 % Sodium Chloride Flush 3 Ml Syringe) 3 ml IVFLUSH QSHIFT PHAN Tramadol HCl (Tramadol Hcl 50 Mg Tablet) 50 mg PO Q6H PRN PRN Reason: Pain, Moderate(Pain Scale 4-6) Home Medications ?Medication ?Instructions ?Recorded ?Confirmed ?Last Taken ?Type melatonin 5 mg tablet 5 mg PO BEDTIME PRN Sleep 04/15/21 11/10/24 Unknown History pantoprazole 40 mg tablet,delayed 40 mg PO DAILY@0630 04/15/21 11/10/24 07/21/24 History release aspirin 81 mg tablet,delayed 1 tab PO DAILY 10/11/21 11/10/24 07/21/24 History release albuterol sulfate 90 mcg/actuation 2 puff inhalation Q4H PRN wheezing 01/31/22 11/10/24 Unknown History aerosol inhaler (Ventolin HFA) albuterol sulfate 2.5 mg/3 mL 1 amp inhalation Q6H PRN Shortness 05/08/22 11/10/24 Unknown History (0.083 %) solution for nebulization Of Breath isosorbide dinitrate 30 mg tablet 30 mg PO TID 07/10/22 11/10/24 07/21/24 History calcium acetate(phosphat bind) 667 1,334 mg PO TIDWM 03/13/23 11/10/24 07/21/24 History mg capsule lactulose 10 gram/15 mL oral 10 g PO DAILY PRN constipation 03/13/23 11/10/24 07/21/24 History solution mirtazapine 15 mg tablet 15 mg PO BEDTIME 03/13/23 11/10/24 07/21/24 History carvedilol 25 mg tablet 25 mg PO BID 0911/10/24 07/21/24 History amlodipine 10 mg tablet 10 mg PO DAILY 04/19/24 11/10/24 07/21/24 History buprenorphine 12 mg-naloxone 3 mg 1 film sublingual DAILY 04/19/24 11/10/24 07/21/24 History sublingual film glucose 4 gram chewable tablet 16 g PO Q15M PRN hypoglycemia 04/19/24 11/10/24 Unknown History sodium zirconium cyclosilicate 10 10 g PO MOWEFR@0900 04/19/24 11/10/24 07/21/24 History gram oral powder packet (Lokelma) vitamin B comp no.3-folic acid 1 1 tab PO DAILY 04/19/24 11/10/24 07/21/24 History mg-vit C 60 mg-biotin 300 mcg tablet ([facility]) diclofenac sodium 1 % topical gel 2 g topical BID PRN Pain 07/21/24 11/10/24 07/21/24 History ondansetron HCl 4 mg tablet 4 mg PO Q12H PRN nausea/vomiting 07/21/24 11/10/24 Unknown History trazodone 100 mg tablet 100 mg PO BEDTIME PRN insomnia 07/21/24 11/10/24 Unknown History acetaminophen 500 mg tablet 500 mg PO Q8H PRN pain 07/22/24 11/10/24 Unknown History docusate sodium 100 mg capsule 100 mg PO BID PRN Constipation 07/22/24 11/10/24 Unknown History (Colace) clonidine 0.3 mg/24 hr weekly 1 patch topical QWEEK 02/13/25 Unknown History transdermal patch doxazosin 1 mg tablet 4 mg PO BEDTIME 02/13/25 Unknown History hydralazine 100 mg tablet 100 mg PO TID 02/13/25 Unknown History losartan 100 mg tablet 100 mg PO DAILY 02/13/25 Unknown History mirtazapine 30 mg tablet 30 mg PO BEDTIME 02/13/25 Unknown History nicotine 14 mg/24 hr daily 1 patch topical DAILY 02/13/25 Unknown History transdermal patch polyethylene glycol 3350 17 17 g PO DAILY 02/13/25 Unknown History gram/dose oral powder Physical Exam Vital Signs and Narrative: Vital Signs: Last Vital Signs Temp 98.0 F 02/13/25 21:13 Pulse 79 02/13/25 21:13 Resp 22 H 02/13/25 21:13 BP 176/81 H 02/13/25 21:13 Pulse Ox 99 02/13/25 21:13 O2 Del Method Oxymask 02/13/25 21:13 O2 Flow Rate 4 02/13/25 21:13 Oxygen Flow Rate 4 02/13/25 15:02 BMI result Body Mass Index 26.7 General: AOx3, appears to be SOB Resp: rhonchorus throughout with expiratory wheezing CVS: S1, S2, RRR GI: +BS, NT, no distention. rectal prolapse exmained in ED and replaced by provider with sugar. pt declines re-examination Skin: Warm, dry Neuro: Cranial nerves II-XII grossly intact bilaterally. Motor grossly intact bilaterally Extremities: No pitting edema Psych: Appropriate affect Const: General: No confusion Orientation/consciousness: No confusion Neuro: General: No confusion Results Labs 02/13/25 17:47 02/13/25 17:47 Labs: Laboratory Results - last 24 hr 02/13/25 02/13/25 02/13/25 14:55 17:47 17:48 MCV 98.3 H MCH 32.3 MCHC 32.9 RDW 14.0 Plt Count 244 D MPV 9.5 Immature Gran % (Auto) 0.4 Neut % (Auto) 70.6 Lymph % (Auto) 13.6 L [place] % (Auto) 12.0 H Eos % (Auto) 3.0 Baso % (Auto) 0.4 Lymph # (Auto) 1.2 [place] # (Auto) 1.0 Eos # (Auto) 0.3 Baso # (Auto) 0.0 Abs Immat Gran (auto) 0.03 Absolute Neuts (auto) 6.0 Absolute Nucleated RBC 0.000 Nucleated RBC % (auto) 0.0 VBG pH VBG pCO2 VBG pO2 VBG HCO3 VBG O2 Saturation VBG Base Excess Anion Gap 18 Estim Creat Clear Calc 8.7 Estimated GFR 8 POC Glucose 154 H Random Glucose 127 H Lactic Acid 0.6 Calcium 9.0 Phosphorus 4.7 H Magnesium 2.3 Total Bilirubin 0.4 Direct Bilirubin 0.1 AST 75 H ALT 27 Alkaline Phosphatase 156 H Troponin I High Sens 81.8 H* D NT-Pro-B Natriuret Pep 34965.8 H Total Protein 7.8 Albumin 4.2 Lipase 9 Procalcitonin 0.44 Influenza Type A (PCR) NEGATIVE Influenza Type B (PCR) NEGATIVE RSV RNA Qual (PCR) NEGATIVE SARS-CoV-2 RNA (RT-PCR) NEGATIVE 02/13/25 17:54 MCV MCH MCHC RDW Plt Count MPV Immature Gran % (Auto) Neut % (Auto) Lymph % (Auto) [place] % (Auto) Eos % (Auto) Baso % (Auto) Lymph # (Auto) [place] # (Auto) Eos # (Auto) Baso # (Auto) Abs Immat Gran (auto) Absolute Neuts (auto) Absolute Nucleated RBC Nucleated RBC % (auto) VBG pH 7.43 VBG pCO2 48 VBG pO2 85 VBG HCO3 32 H VBG O2 Saturation 97.0 VBG Base Excess 7.4 Anion Gap Estim Creat Clear Calc Estimated GFR POC Glucose Random Glucose Lactic Acid Calcium Phosphorus Magnesium Total Bilirubin Direct Bilirubin AST ALT Alkaline Phosphatase Troponin I High Sens NT-Pro-B Natriuret Pep Total Protein Albumin Lipase Procalcitonin Influenza Type A (PCR) Influenza Type B (PCR) RSV RNA Qual (PCR) SARS-CoV-2 RNA (RT-PCR) Assessment and Plan (1) Acute respiratory failure with hypoxia: Status: Acute (2) Pneumonia: Status: Acute (3) Elevated troponin: Status: Acute (4) ESRD (end stage renal disease) on dialysis: Status: Chronic (5) Rectal prolapse: Status: Acute (6) Proctitis: Status: Acute Plan Patient is a 69-year-old Slovak-speaking female with a past medical history significant for pulmonary hypertension, asthma/COPD overlap, hypertension, diabetes, ESRD TTS, HFpEF, hypertrophic cardiomyopathy, prolapsed rectum and recent admission at [facility] for hypertensive emergency with flash pulmonary edema placed on BiPAP with dialysis, who presented to the ED due to hypoxia and dyspnea. Acute hypoxic respiratory failure secondary to pneumonia with mucus plugging on CT - vancomycin and cefepime - pulmonary consult - titrate O2 PRN elevated troponin, likely demand, EKG ok - repeat trop - echo - monitor on tele ESRD on HD TTS - RTANE consult, they are aware, dialysis tomorrow rectal prolapse/proctitis - surgical consult asthma/COPD overlap - duonebs PRN HTN - continue home meds DM - SSI HFpEF, no acute exacerbation - BNP likley elevated due to ESRD - no response to 100mg IV lasix med rec pending full code VTE prophy: heparin Patient with acute hypoxic respiratory failure secondary to pneumonia complicated by elevated troponin, requiring admission for at least 2 midnight stay for IV antibiotics, specialist consultations and monitoring. Quality Stroke Does the patient have a stroke diagnosis?: No VTE Prior VTE?: No VTE Risk Level:: Medical - moderate - high VTE Device Contraindication: Treatment Not Indicated VTE Drug Contraindication: N/A - Med Ordered
[2025-02-13] MEDS: Albuterol/Iprat 2.5/0.5MG 3 ML AMPUL.NEB INHALE (23:05)
[2025-02-13] MEDS: oxyCODONE HCl Immed Release 5 MG TABLET PO (23:07)
[2025-02-13] MEDS: 0.9 % Sodium Chloride Flush 3 ML SYRINGE IVFLUSH (23:11)
[2025-02-13 23:41] LABS: VBG HCO3 32 mmol/L (22-26); VBG O2 % Saturation 82.0 %
[2025-02-14] VITALS (9 sets, daily range): BP systolic 125–180; BP diastolic 59–76; PULSE 72–88; RESP 18–22; TEMP 36.3–36.9; O2SAT 88–100
[2025-02-14] LABS: Venous Blood Gas Refer to POC result
[2025-02-14 00:07] LABS: Troponin-I High Sensitivity 74.7 ng/L (<3.5-17.0)
[2025-02-14 07:22] LABS: MANUAL DIFF FLAG NO
[2025-02-14 07:34] LABS: Hematocrit 25.5 % (37.0-47.0); Hemoglobin 8.1 g/dl (12.0-16.0); Imm Gran Abs Auto 0.03 X10*3/uL (0.00-0.03); Imm Gran Pct Auto 0.5 % (0.0-0.4); Lymphocytes Absolute Auto 0.9 X10*3/uL (1.2-4.9); Mean Corpuscular HGB Conc 31.8 g/dl (31.0-35.0); Mean Corpuscular Hemoglobin 32.0 pg (27.0-33.0); Mean Corpuscular Volume 100.8 fL (80.0-98.0); NRBC Abs Auto 0.000 X10*3/uL (0.0-0.012); NRBC Pct Auto 0.0 /100WBC (0.0-0.2); Platelet Count 205 X10*3/uL (160-400); Red Blood Count 2.53 X10*6/uL (4.20-5.50); White Blood Count 5.8 X10*3/uL (4.8-10.8)
[2025-02-14 08:17] LABS: Anion Gap 18 (12-20); Blood Urea Nitrogen 49 mg/dL (9-16); Calcium 8.2 mg/dL (8.4-10.2); Carbon Dioxide 28 mmol/L (22-29); Chloride 94 mmol/L (96-108); Creatinine Clr Calc Pharmacy 7.2; Estimated Glomerular Filt Rate 7; Magnesium 2.3 mg/dL (1.6-2.6); Potassium 4.1 mmol/L (3.3-5.1); Sodium 136 mmol/L (135-145)
--- NOTE | 2025-02-14 09:22 | PM.CNGS ---
History of Present Illness Consult details Consult date: 02/14/25 Requesting physician: Daniel Fernandez Narrative: Surgical consultation requested due to rectal prolapse. Patient is currently in hemodialysis and history obtained through medical records. She is a 69-year-old female with a history of pulmonary hypertension, asthma, COPD, hypertension, diabetes, end-stage renal disease, TTS, HFpEF, hypertrophic cardiomyopathy, CKD, recently admitted to [facility] for hypertensive emergency with flash pulmonary edema again returning to ED with hypoxia and dyspnea. Saturations were recorded in the 70s on room air. Patient reported severe rectal pain and was noted to have rectal prolapse. CT abdomen and pelvis confirmed the rectal prolapse. In the emergency department sugar was applied and with gentle pressure the prolapse was able to be reduced by the ED provider. Surgical consultation was requested for further management of the rectal prolapse. Review of Systems Review of Systems: Yes all other systems are reviewed and are negative PMFSH Past Medical History Medical History Chronic renal failure Essential hypertension ESRD (end stage renal disease) on dialysis Diabetes mellitus Hemorrhoids that prolapse with straining, but retract spontaneously Hemorrhoids with complication ESRD on dialysis Delirium Sepsis Tachycardia Leukocytosis Fever End stage chronic kidney disease Congestive heart failure with left ventricular dysfunction ESRD (end stage renal disease) Hypertension Pulmonary congestion COVID-19 virus infection Asthma with COPD with exacerbation COVID ESRD (end stage renal disease) Hypertrophic cardiomyopathy Acute exacerbation of chronic obstructive pulmonary disease (COPD) Heart failure with preserved ejection fraction Constipation End stage renal disease on dialysis Ascites Anasarca Ischemic colitis Acute GI bleeding Anemia Dialysis patient, noncompliant Anemia in chronic kidney disease Opioid withdrawal Essential hypertension Family History Family History Other Hypertension Surgical History Surgical History No pertinent past surgical history Social History Social History Household Members: None Housing: House Do you presently have visiting nurse or other home services: Yes Alcohol intake: never Comment: pt in dialysis at this time. Patient Tobacco Use Status: Current everyday Tobacco user Tobacco use type: Cigarette Cigarette Packs Per Day: 2 Cigarettes Per Day: 1 Years Smoked: 50 +/- Smoked in Last 30 Days: Yes e-Cigarette/Vaping Use: Never Used Patient Interested in Nicotine Replacement: Yes Second Hand Smoke Exposure: No Use of substances other than those prescribed or required for medical reasons: No Substance Use Type: Marijuana Currently Displaying Signs/Symptoms of Drug Intoxication Withdrawal: No Have you been hit, kicked, punched, or otherwise hurt by someone within the past year? If so, by whom?: No Do you feel safe in your current relationship?: No Current Relationship Is there a partner from a previous relationship who is making you feel unsafe now?: No Are you made to feel afraid or neglected: No Advance Directives: Yes Advance Directives on File: Yes Advance Directives Date on File: 04/19/23 Recently lost weight without trying: Yes How much weight loss: 2-13 pounds Eating poorly because of decreased appetite: No Nutrition screen score: 3 Nutrition Risks: No Nutritional Risk Patient : No : No Poor oral hygiene: No service: No Current occupational status: disabled Meds Allergies Allergy/AdvReac Type Severity Reaction Status Date / Time No Known Allergies Allergy Verified 02/13/25 15:09 Active Medications: Current Medications Acetaminophen (Acetaminophen 325 Mg Tablet) 650 mg PO Q6H PRN PRN Reason: Pain, Mild 1-3,fever,headache Albuterol/Ipratropium (Albuterol/Iprat 2.5/0.5mg 3 Ml Ampul.Neb) 3 ml INHALE RQ4H WHILE AWAKE [facility] Last Admin: 02/14/25 07:59 Dose: Not Given Calcium Carbonate (Calcium Carbonate 750 Mg Tab.Chew) 750 mg PO Q4H PRN PRN Reason: Heartburn Dextrose (Dextrose 50 % 25 Gm/50 Ml Syringe) 25 gm IVPUSH Q15M PRN; Protocol PRN Reason: per Hypoglycemia Standing Ord. Glucose (Glucose Gel 15 Gm Gel..Gram.) 15 gm PO Q15M PRN; Protocol PRN Reason: per Hypoglycemia Standing Ord. Heparin Sodium (Porcine) (Heparin Sodium,Porcine 5,000 Unit/Ml Vial) 5,000 unit SUBCUT Q12H [facility] Last Admin: 02/13/25 23:05 Dose: 5,000 unit Cefepime HCl 1 gm/ Sodium (Chloride) 50 mls @ 100 mls/hr IV Q24H [facility] Vancomycin HCl 500 mg/ Sodium (Chloride) 110 mls @ 110 mls/hr IV ONCE ONE Stop: 02/14/25 20:59 Insulin Human Lispro (Insulin Lispro 100 Unit/Ml 3 Ml Vial) 0 unit SUBCUT [facility]; Protocol Last Admin: 02/14/25 08:26 Dose: Not Given Magnesium Hydroxide (Milk Of Magnesia 30 Ml Oral.Susp) 30 ml PO DAILY PRN PRN Reason: Constipation Melatonin (Melatonin 3 Mg Tablet) 6 mg PO BEDTIME PRN PRN Reason: Insomnia Ondansetron HCl (Ondansetron Hcl 4 Mg/2 Ml Vial) 4 mg IVPUSH Q8H PRN PRN Reason: Nausea and Vomiting Oxycodone HCl (Oxycodone Hcl Immed Release 5 Mg Tablet) 5 mg PO Q6H PRN PRN Reason: Pain, Severe (Pain Scale 7-10) Last Admin: 02/13/25 23:07 Dose: 5 mg Pharmacy Consult (Consult Rx Vancomycin Dosing) 1 each MISCELLANE DAILY PRN PRN Reason: Consult order Sodium Chloride (0.9 % Sodium Chloride Flush 3 Ml Syringe) 3 ml [facility] Last Admin: 02/14/25 08:26 Dose: Not Given Tramadol HCl (Tramadol Hcl 50 Mg Tablet) 50 mg PO Q6H PRN PRN Reason: Pain, Moderate(Pain Scale 4-6) Home Medications ?Medication ?Instructions ?Recorded ?Confirmed ?Last Taken ?Type melatonin 5 mg tablet 5 mg PO BEDTIME Sleep 04/15/21 02/14/25 02/13/25 History pantoprazole 40 mg tablet,delayed 40 mg PO DAILY@0630 04/15/21 02/14/25 02/13/25 History release aspirin 81 mg tablet,delayed 1 tab PO DAILY 10/11/21 02/14/25 02/13/25 History release albuterol sulfate 90 mcg/actuation 2 puff inhalation Q4H PRN wheezing 01/31/22 02/14/25 Unknown History aerosol inhaler (Ventolin HFA) albuterol sulfate 2.5 mg/3 mL 1 amp inhalation Q6H PRN Shortness 05/08/22 02/14/25 Unknown History (0.083 %) solution for nebulization Of Breath isosorbide dinitrate 30 mg tablet 30 mg PO TID 07/10/22 02/14/25 02/13/25 History calcium acetate(phosphat bind) 667 667 mg PO TIDWM 03/13/23 02/14/25 02/13/25 History mg capsule lactulose 10 gram/15 mL oral 10 g PO DAILY PRN constipation 03/13/23 02/14/25 07/21/24 History solution carvedilol 25 mg tablet 25 mg PO BID 01/28/24 02/14/25 02/13/25 History amlodipine 10 mg tablet 10 mg PO DAILY 04/19/24 02/14/25 02/13/25 History buprenorphine 12 mg-naloxone 3 mg 1 film sublingual DAILY 04/19/24 02/14/25 02/13/25 History sublingual film glucose 4 gram chewable tablet 16 g PO Q15M PRN hypoglycemia 04/19/24 02/14/25 Unknown History sodium zirconium cyclosilicate 10 10 g PO MOWEFR@0900 04/19/24 02/14/25 02/13/25 History gram oral powder packet (Lokelma) vitamin B comp no.3-folic acid 1 1 tab PO DAILY 04/19/24 02/14/25 02/13/25 History mg-vit C 60 mg-biotin 300 mcg tablet ([facility]) diclofenac sodium 1 % topical gel 2 g topical BID PRN Pain 07/21/24 02/14/25 07/21/24 History ondansetron HCl 4 mg tablet 4 mg PO Q12H PRN nausea/vomiting 07/21/24 02/14/25 Unknown History trazodone 100 mg tablet 100 mg PO BEDTIME PRN insomnia 07/21/24 02/14/25 Unknown History acetaminophen 500 mg tablet 500 mg PO Q8H PRN pain 07/22/24 02/14/25 Unknown History docusate sodium 100 mg capsule 100 mg PO BID Constipation 07/22/24 02/14/25 02/13/25 History (Colace) clonidine 0.3 mg/24 hr weekly 1 patch topical WE 02/13/25 02/14/25 02/13/25 History transdermal patch hydralazine 100 mg tablet 100 mg PO TID 02/13/25 02/14/25 02/13/25 History losartan 100 mg tablet 100 mg PO DAILY 02/13/25 02/14/25 02/13/25 History mirtazapine 30 mg tablet 30 mg PO BEDTIME 02/13/25 02/14/25 02/13/25 History nicotine 14 mg/24 hr daily 1 patch topical DAILY 02/13/25 02/14/25 02/13/25 History transdermal patch polyethylene glycol 3350 17 17 g PO DAILY 02/13/25 02/14/25 02/13/25 History gram/dose oral powder Physical Exam Vital Signs: Vital Signs: Last Vital Signs Temp 97.6 F 02/14/25 03:18 Pulse 79 02/14/25 03:18 Resp 18 02/14/25 03:18 BP 180/76 H 02/14/25 03:18 Pulse Ox 97 02/14/25 03:18 O2 Del Method Nasal Cannula 02/14/25 03:18 O2 Flow Rate 2 02/14/25 03:18 Oxygen Flow Rate 4 02/13/25 15:02 BMI result Body Mass Index 26.2 Results Labs 02/14/25 07:01 02/14/25 07:01 Labs: Abnormal lab results 02/13/25 02/13/25 02/13/25 Range/Units 14:55 17:47 17:48 RBC 2.94 L D (4.20-5.50) X10*6/uL Hgb 9.5 L D (12.0-16.0) g/dl Hct 28.9 L D (37.0-47.0) % MCV 98.3 H (80.0-98.0) fL Immature Gran % (Auto) (0.0-0.4) % Neut % (Auto) (45-73) % Lymph % (Auto) 13.6 L (20-40) % [place] % (Auto) 12.0 H (2-11) % Lymph # (Auto) (1.2-4.9) X10*3/uL VBG HCO3 (22-26) mmol/L Chloride 94 L (96-108) mmol/L Carbon Dioxide 30 H (22-29) mmol/L BUN 41 H (9-16) mg/dL Creatinine 5.28 H* (0.5-1.4) mg/dL POC Glucose 154 H (60-115) mg/dL Random Glucose 127 H (60-115) mg/dL Calcium (8.4-10.2) mg/dL Phosphorus 4.7 H (2.7-4.5) mg/dL AST 75 H (5-31) U/L Alkaline Phosphatase 156 H (39-117) U/L Troponin I High Sens 81.8 H* D (<3.5-17.0) ng/L NT-Pro-B Natriuret Pep 51408.8 H (<300) pg/mL 02/13/25 02/13/25 02/13/25 Range/Units 17:54 23:28 23:38 RBC (4.20-5.50) X10*6/uL Hgb (12.0-16.0) g/dl Hct (37.0-47.0) % MCV (80.0-98.0) fL Immature Gran % (Auto) (0.0-0.4) % Neut % (Auto) (45-73) % Lymph % (Auto) (20-40) % [place] % (Auto) (2-11) % Lymph # (Auto) (1.2-4.9) X10*3/uL VBG HCO3 32 H 32 H (22-26) mmol/L Chloride (96-108) mmol/L Carbon Dioxide (22-29) mmol/L BUN (9-16) mg/dL Creatinine (0.5-1.4) mg/dL POC Glucose (60-115) mg/dL Random Glucose (60-115) mg/dL Calcium (8.4-10.2) mg/dL Phosphorus (2.7-4.5) mg/dL AST (5-31) U/L Alkaline Phosphatase (39-117) U/L Troponin I High Sens 74.7 H* (<3.5-17.0) ng/L NT-Pro-B Natriuret Pep (<300) pg/mL 02/14/25 Range/Units 07:01 RBC 2.53 L (4.20-5.50) X10*6/uL Hgb 8.1 L (12.0-16.0) g/dl Hct 25.5 L (37.0-47.0) % MCV 100.8 H (80.0-98.0) fL Immature Gran % (Auto) 0.5 H (0.0-0.4) % Neut % (Auto) 73.3 H (45-73) % Lymph % (Auto) 14.7 L (20-40) % [place] % (Auto) (2-11) % Lymph # (Auto) 0.9 L (1.2-4.9) X10*3/uL VBG HCO3 (22-26) mmol/L Chloride 94 L (96-108) mmol/L Carbon Dioxide (22-29) mmol/L BUN 49 H (9-16) mg/dL Creatinine 6.27 H* (0.5-1.4) mg/dL POC Glucose (60-115) mg/dL Random Glucose 243 H (60-115) mg/dL Calcium 8.2 L D (8.4-10.2) mg/dL Phosphorus (2.7-4.5) mg/dL AST (5-31) U/L Alkaline Phosphatase (39-117) U/L Troponin I High Sens (<3.5-17.0) ng/L NT-Pro-B Natriuret Pep (<300) pg/mL Short CBC 02/13/25 02/14/25 Range/Units 17:47 07:01 WBC 8.4 5.8 (4.8-10.8) X10*3/uL Hgb 9.5 L D 8.1 L (12.0-16.0) g/dl Hct 28.9 L D 25.5 L (37.0-47.0) % Plt Count 244 D 205 (160-400) X10*3/uL BMP 02/13/25 02/14/25 17:47 07:01 Sodium 138 136 Potassium 3.8 D 4.1 Chloride 94 L 94 L Carbon Dioxide 30 H 28 BUN 41 H 49 H Creatinine 5.28 H* 6.27 H* Calcium 9.0 8.2 L D Liver Function 02/13/25 Range/Units 17:47 Total Bilirubin 0.4 (0.0-1.0) mg/dL Direct Bilirubin 0.1 (0.0-0.5) mg/dL AST 75 H (5-31) U/L ALT 27 (0-31) U/L Alkaline Phosphatase 156 H (39-117) U/L Albumin 4.2 (3.5-5.0) g/dL All other labs normal. Imaging Additional studies: CT AP: Assessment and Plan (1) Rectal prolapse: Status: Acute Plan 69-year-old female patient presenting with complaints of rectal pain found to have rectal prolapse confirmed on CT abdomen and pelvis. Rectal prolapse was reduced in the emergency department but almost certainly will return with straining to have a bowel movement. Ideally patient should undergo sigmoid colectomy with rectopexy or alternatively an Altemeier procedure. Patient has multiple comorbidities and seems to be a poor risk for undergoing a complicated surgical procedure. In the meantime, I would recommend fiber therapy and stool softeners to avoid the need to strain to have a bowel movement. Once patient is medically stable, arrangements could be made for a definitive surgical procedure. Procedures Date of Service Date of Service: 02/14/25
--- NOTE | 2025-02-14 10:21 | P.PNIM_ITS ---
Subjective Subjective Date of Service: 02/14/25 Interval History: Pt seen while receiving dialysis Appears tired and weak Productive cough x2 weeks Complaints of SOB and difficulty breathing Rectal pain Review of Systems Review of Systems: Yes all other systems are reviewed and are negative Physical Exam 2 Exam: Exam: General: AOx3, appears weak and tired Resp: Diffuse rhonchi bilaterally CVS: S1, S2, RRR GI: +BS, NT, no distention Skin: Warm, dry Neuro: Cranial nerves II-XII grossly intact bilaterally. Motor grossly intact bilaterally Extremities: No edema Psych: Appropriate affect Vital Signs: Vital Signs: Last Vital Signs Temp 97.6 F 02/14/25 03:18 Pulse 79 02/14/25 03:18 Resp 18 02/14/25 03:18 BP 180/76 H 02/14/25 03:18 Pulse Ox 97 02/14/25 03:18 O2 Del Method Nasal Cannula 02/14/25 03:18 O2 Flow Rate 2 02/14/25 03:18 Oxygen Flow Rate 4 02/13/25 15:02 BMI result Body Mass Index 26.2 Objective Data Active Medications Acetaminophen (Acetaminophen 325 Mg Tablet) 650 mg PO Q6H PRN PRN Reason: Pain, Mild 1-3,fever,headache Albuterol/Ipratropium (Albuterol/Iprat 2.5/0.5mg 3 Ml Ampul.Neb) 3 ml INHALE RQ4H WHILE AWAKE [facility] Last Admin: 02/14/25 07:59 Dose: Not Given Documented By: HERLINDA Non-Admin Reason: Not In Room Calcium Carbonate (Calcium Carbonate 750 Mg Tab.Chew) 750 mg PO Q4H PRN PRN Reason: Heartburn Dextrose (Dextrose 50 % 25 Gm/50 Ml Syringe) 25 gm IVPUSH Q15M PRN; Protocol PRN Reason: per Hypoglycemia Standing Ord. Glucose (Glucose Gel 15 Gm Gel..Gram.) 15 gm PO Q15M PRN; Protocol PRN Reason: per Hypoglycemia Standing Ord. Heparin Sodium (Porcine) (Heparin Sodium,Porcine 5,000 Unit/Ml Vial) 5,000 unit SUBCUT Q12H [facility] Last Admin: 02/13/25 23:05 Dose: 5,000 unit Documented By: FLIP Cefepime HCl 1 gm/ Sodium (Chloride) 50 mls @ 100 mls/hr IV Q24H [facility] Vancomycin HCl 500 mg/ Sodium (Chloride) 110 mls @ 110 mls/hr IV ONCE ONE Stop: 02/14/25 20:59 Insulin Human Lispro (Insulin Lispro 100 Unit/Ml 3 Ml Vial) 0 unit SUBCUT QIDACHS [facility]; Protocol Last Admin: 02/14/25 08:26 Dose: Not Given Documented By: SALLY Non-Admin Reason: Off unit: Dialysis Magnesium Hydroxide (Milk Of Magnesia 30 Ml Oral.Susp) 30 ml PO DAILY PRN PRN Reason: Constipation Melatonin (Melatonin 3 Mg Tablet) 6 mg PO BEDTIME PRN PRN Reason: Insomnia Ondansetron HCl (Ondansetron Hcl 4 Mg/2 Ml Vial) 4 mg IVPUSH Q8H PRN PRN Reason: Nausea and Vomiting Oxycodone HCl (Oxycodone Hcl Immed Release 5 Mg Tablet) 5 mg PO Q6H PRN PRN Reason: Pain, Severe (Pain Scale 7-10) Last Admin: 02/13/25 23:07 Dose: 5 mg Documented By: FLIP Pharmacy Consult (Consult Rx Vancomycin Dosing) 1 each MISCELLANE DAILY PRN PRN Reason: Consult order Sodium Chloride (0.9 % Sodium Chloride Flush 3 Ml Syringe) [facility] Last Admin: 02/14/25 08:26 Dose: Not Given Documented By: SALLY Non-Admin Reason: Off unit: Dialysis Tramadol HCl (Tramadol Hcl 50 Mg Tablet) 50 mg PO Q6H PRN PRN Reason: Pain, Moderate(Pain Scale 4-6) Last Admin: 02/14/25 09:53 Dose: 50 mg Documented By: SALLY Labs 02/14/25 07:01 02/14/25 07:01 Labs: Laboratory Results - last 24 hr 02/13/25 02/13/25 02/13/25 14:55 17:47 17:48 MCV 98.3 H MCH 32.3 MCHC 32.9 RDW 14.0 Plt Count 244 D MPV 9.5 Immature Gran % (Auto) 0.4 Neut % (Auto) 70.6 Lymph % (Auto) 13.6 L [place] % (Auto) 12.0 H Eos % (Auto) 3.0 Baso % (Auto) 0.4 Lymph # (Auto) 1.2 [place] # (Auto) 1.0 Eos # (Auto) 0.3 Baso # (Auto) 0.0 Abs Immat Gran (auto) 0.03 Absolute Neuts (auto) 6.0 Absolute Nucleated RBC 0.000 Nucleated RBC % (auto) 0.0 VBG pH VBG pCO2 VBG pO2 VBG HCO3 VBG O2 Saturation VBG Base Excess Anion Gap 18 Estim Creat Clear Calc 8.7 Estimated GFR 8 POC Glucose 154 H Random Glucose 127 H Lactic Acid 0.6 Calcium 9.0 Phosphorus 4.7 H Magnesium 2.3 Total Bilirubin 0.4 Direct Bilirubin 0.1 AST 75 H ALT 27 Alkaline Phosphatase 156 H Troponin I High Sens 81.8 H* D NT-Pro-B Natriuret Pep 07000.8 H Total Protein 7.8 Albumin 4.2 Lipase 9 Procalcitonin 0.44 Influenza Type A (PCR) NEGATIVE Influenza Type B (PCR) NEGATIVE RSV RNA Qual (PCR) NEGATIVE SARS-CoV-2 RNA (RT-PCR) NEGATIVE 02/13/25 02/13/25 02/13/25 17:54 23:28 23:38 MCV MCH MCHC RDW Plt Count MPV Immature Gran % (Auto) Neut % (Auto) Lymph % (Auto) [place] % (Auto) Eos % (Auto) Baso % (Auto) Lymph # (Auto) [place] # (Auto) Eos # (Auto) Baso # (Auto) Abs Immat Gran (auto) Absolute Neuts (auto) Absolute Nucleated RBC Nucleated RBC % (auto) VBG pH 7.43 7.35 VBG pCO2 48 57 VBG pO2 85 59 VBG HCO3 32 H 32 H VBG O2 Saturation 97.0 82.0 VBG Base Excess 7.4 5.6 Anion Gap Estim Creat Clear Calc Estimated GFR POC Glucose Random Glucose Lactic Acid Calcium Phosphorus Magnesium Total Bilirubin Direct Bilirubin AST ALT Alkaline Phosphatase Troponin I High Sens 74.7 H* NT-Pro-B Natriuret Pep Total Protein Albumin Lipase Procalcitonin Influenza Type A (PCR) Influenza Type B (PCR) RSV RNA Qual (PCR) SARS-CoV-2 RNA (RT-PCR) 02/14/25 07:01 MCV 100.8 H MCH 32.0 MCHC 31.8 RDW 14.1 Plt Count 205 MPV 9.9 Immature Gran % (Auto) 0.5 H Neut % (Auto) 73.3 H Lymph % (Auto) 14.7 L [place] % (Auto) 8.4 Eos % (Auto) 2.6 Baso % (Auto) 0.5 Lymph # (Auto) 0.9 L [place] # (Auto) 0.5 Eos # (Auto) 0.2 Baso # (Auto) 0.0 Abs Immat Gran (auto) 0.03 Absolute Neuts (auto) 4.3 Absolute Nucleated RBC 0.000 Nucleated RBC % (auto) 0.0 VBG pH VBG pCO2 VBG pO2 VBG HCO3 VBG O2 Saturation VBG Base Excess Anion Gap 18 Estim Creat Clear Calc 7.2 Estimated GFR 7 POC Glucose Random Glucose 243 H Lactic Acid Calcium 8.2 L D Phosphorus Magnesium 2.3 Total Bilirubin Direct Bilirubin AST ALT Alkaline Phosphatase Troponin I High Sens NT-Pro-B Natriuret Pep Total Protein Albumin Lipase Procalcitonin Influenza Type A (PCR) Influenza Type B (PCR) RSV RNA Qual (PCR) SARS-CoV-2 RNA (RT-PCR) Assessment and Plan (1) Acute respiratory failure with hypoxia: Status: Acute (2) Pneumonia: Status: Acute Plan Patient is a 69-year-old [place]-speaking female with a past medical history significant for pulmonary hypertension, asthma/COPD overlap, hypertension, diabetes, ESRD TTS, HFpEF, hypertrophic cardiomyopathy, prolapsed rectum and recent admission at [facility] for hypertensive emergency with flash pulmonary edema placed on BiPAP with dialysis, who presented to the ED due to hypoxia and dyspnea. Acute hypoxic respiratory failure secondary to pneumonia with mucus plugging on CT - likely multifactorial: fluid overloaded from ESRD and possible pneumonia - pulmonology consulted, feels CT more indicative of pulmonary edema rather than pneumonia; no need for inpatient bronch - pulmonology question need for antibiotics, but will continue ceftriaxone and doxycycline given productive cough and SOB x2 weeks - follow up with pulmonology in [address] of chest and need for possible outpatient bronchoscopy - titrate O2 PRN elevated troponin, likely demand, EKG ok - tropes flat at 81.8 with repeat 74.7 - echo - monitor on tele ESRD on HD TTS - RTANE consulted and will arrange dialysis rectal prolapse/proctitis - ongoing x2 years - multiple previous surgical attempts has been postponed due a variety of different ongoing medical issues - general surgery consulted, recommend high-fiber diet and stool softeners to avoid straining with bowel movements - outpatient surgical repair once pt medically stable asthma/COPD overlap - duonebs PRN HTN/hypertensive urgency - continue home meds DM - SSI HFpEF, no acute exacerbation - BNP likely elevated due to ESRD - no response to 100mg IV lasix full code VTE prophy: heparin Patient requires continued hospitalization for treatment and further evaluation of acute hypoxic respiratory failure in the setting of ESRD and likely superimposed requiring supplemental O2 and IV abx. Quality Stroke Does the patient have a stroke diagnosis?: No VTE Prior VTE?: No VTE Risk Level:: Medical - moderate - high VTE Device Contraindication: Treatment Not Indicated VTE Drug Contraindication: N/A - Med Ordered
--- NOTE | 2025-02-14 10:45 | PM.CNPUL ---
History of Present Illness History of Present Illness Consult date: 02/14/25 Chief complaint: hypoxia Narrative: 69-year-old lady with underlying history pulmonary hypertension secondary to heart disease, diastolic congestive heart failure, ESRD on hemodialysis, diabetes mellitus, polysubstance abuse on Suboxone admitted on 02/13/2025 with dyspnea and hypoxia and prolapsed rectum. Cc angio chest did not demonstrate pulmonary emboli, but showed pulmonary edema with supplemental lobe atelectasis some weight thickening. She was placed on empiric antibiotics. Her dyspnea is improving with dialysis and currently she is on room air. Review of Systems Constitutional: Constitutional: Denies daytime sleepiness, Denies excessive sweating, Denies fatigue, Denies fever(s), Denies lethargy, Denies malaise, Denies night sweats, Denies snoring and Denies weight loss Eyes: Eyes: Denies blurry vision and Denies itchy eyes ENT: Denies nasal congestion, Denies post nasal drip, Denies sinus pain, Denies sinus pressure and Denies other ( Thrush) Cardiovascular: Cardiovascular: Denies chest pain, Reports pedal edema, Reports dyspnea, Reports dyspnea on exertion, Reports orthopnea and Denies paroxysmal nocturnal dyspnea Respiratory: Respiratory: Denies cough, Denies hemoptysis, Denies excessive phlegm production, Reports dyspnea, Reports dyspnea on exertion, Denies snoring and Denies wheezing Gastrointestinal: Gastrointestinal: Denies abdominal pain and Denies heartburn Musculoskeletal: Musculoskeletal: Denies myalgias, Denies arthralgias and Denies joint swelling Integumentary/Breasts: Skin/Breast: Denies rash Neurologic: Denies memory loss and Denies seizure-like activity Psychiatric: Psychiatric: Denies abnormal sleep pattern, Denies anxiety and Denies memory loss Endocrine: Endocrine: Denies excessive sweating, Denies fatigue and Denies heat intolerance Hematologic/Lymphatic: Hematologic/Lymphatic: Denies easy bruising Allergic/Immunologic: Allergic/Immunologic: Denies itchy eyes, Denies seasonal rhinorrhea and Denies wheezing PMFSH Past Medical History Medical History Chronic renal failure Essential hypertension ESRD (end stage renal disease) on dialysis Diabetes mellitus Hemorrhoids that prolapse with straining, but retract spontaneously Hemorrhoids with complication ESRD on dialysis Delirium Sepsis Tachycardia Leukocytosis Fever End stage chronic kidney disease Congestive heart failure with left ventricular dysfunction ESRD (end stage renal disease) Hypertension Pulmonary congestion COVID-19 virus infection Asthma with COPD with exacerbation COVID ESRD (end stage renal disease) Hypertrophic cardiomyopathy Acute exacerbation of chronic obstructive pulmonary disease (COPD) Heart failure with preserved ejection fraction Constipation End stage renal disease on dialysis Ascites Anasarca Ischemic colitis Acute GI bleeding Anemia Dialysis patient, noncompliant Anemia in chronic kidney disease Opioid withdrawal Essential hypertension Family History Family History Other Hypertension Surgical History Surgical History No pertinent past surgical history Social History Social History Household Members: None Housing: House Do you presently have visiting nurse or other home services: Yes Alcohol intake: never Comment: pt in dialysis at this time. Patient Tobacco Use Status: Current everyday Tobacco user Tobacco use type: Cigarette Cigarette Packs Per Day: 2 Cigarettes Per Day: 1 Years Smoked: 50 +/- Smoked in Last 30 Days: Yes e-Cigarette/Vaping Use: Never Used Patient Interested in Nicotine Replacement: Yes Second Hand Smoke Exposure: No Use of substances other than those prescribed or required for medical reasons: No Substance Use Type: Marijuana Currently Displaying Signs/Symptoms of Drug Intoxication Withdrawal: No Have you been hit, kicked, punched, or otherwise hurt by someone within the past year? If so, by whom?: No Do you feel safe in your current relationship?: No Current Relationship Is there a partner from a previous relationship who is making you feel unsafe now?: No Are you made to feel afraid or neglected: No Advance Directives: Yes Advance Directives on File: Yes Advance Directives Date on File: 04/19/23 Recently lost weight without trying: Yes How much weight loss: 2-13 pounds Eating poorly because of decreased appetite: No Nutrition screen score: 3 Nutrition Risks: No Nutritional Risk Patient : No : No Poor oral hygiene: No service: No Current occupational status: disabled Meds Allergies Allergy/AdvReac Type Severity Reaction Status Date / Time No Known Allergies Allergy Verified 02/13/25 15:09 Active Medications: Current Medications Acetaminophen (Acetaminophen 325 Mg Tablet) 650 mg PO Q6H PRN PRN Reason: Pain, Mild 1-3,fever,headache Albuterol/Ipratropium (Albuterol/Iprat 2.5/0.5mg 3 Ml Ampul.Neb) 3 ml INHALE RQ4H WHILE AWAKE [facility] Last Admin: 02/14/25 07:59 Dose: Not Given Calcium Carbonate (Calcium Carbonate 750 Mg Tab.Chew) 750 mg PO Q4H PRN PRN Reason: Heartburn Dextrose (Dextrose 50 % 25 Gm/50 Ml Syringe) 25 gm IVPUSH Q15M PRN; Protocol PRN Reason: per Hypoglycemia Standing Ord. Glucose (Glucose Gel 15 Gm Gel..Gram.) 15 gm PO Q15M PRN; Protocol PRN Reason: per Hypoglycemia Standing Ord. Heparin Sodium (Porcine) (Heparin Sodium,Porcine 5,000 Unit/Ml Vial) 5,000 unit SUBCUT Q12H [facility] Last Admin: 02/13/25 23:05 Dose: 5,000 unit Insulin Human Lispro (Insulin Lispro 100 Unit/Ml 3 Ml Vial) 0 unit SUBCUT QIDACHS [facility]; Protocol Last Admin: 02/14/25 08:26 Dose: Not Given Magnesium Hydroxide (Milk Of Magnesia 30 Ml Oral.Susp) 30 ml PO DAILY PRN PRN Reason: Constipation Melatonin (Melatonin 3 Mg Tablet) 6 mg PO BEDTIME PRN PRN Reason: Insomnia Ondansetron HCl (Ondansetron Hcl 4 Mg/2 Ml Vial) 4 mg IVPUSH Q8H PRN PRN Reason: Nausea and Vomiting Oxycodone HCl (Oxycodone Hcl Immed Release 5 Mg Tablet) 5 mg PO Q6H PRN PRN Reason: Pain, Severe (Pain Scale 7-10) Last Admin: 02/13/25 23:07 Dose: 5 mg Sodium Chloride (0.9 % Sodium Chloride Flush 3 Ml Syringe) 3 ml IVFLUSH QSHIFT [facility] Last Admin: 02/14/25 08:26 Dose: Not Given Tramadol HCl (Tramadol Hcl 50 Mg Tablet) 50 mg PO Q6H PRN PRN Reason: Pain, Moderate(Pain Scale 4-6) Last Admin: 02/14/25 09:53 Dose: 50 mg Home Medications ?Medication ?Instructions ?Recorded ?Confirmed ?Last Taken ?Type melatonin 5 mg tablet 5 mg PO BEDTIME PRN Sleep 04/15/21 11/10/24 Unknown History pantoprazole 40 mg tablet,delayed 40 mg PO DAILY@0630 04/15/21 11/10/24 07/21/24 History release aspirin 81 mg tablet,delayed 1 tab PO DAILY 10/11/21 11/10/24 07/21/24 History release albuterol sulfate 90 mcg/actuation 2 puff inhalation Q4H PRN wheezing 01/31/22 11/10/24 Unknown History aerosol inhaler (Ventolin HFA) albuterol sulfate 2.5 mg/3 mL 1 amp inhalation Q6H PRN Shortness 05/08/22 11/10/24 Unknown History (0.083 %) solution for nebulization Of Breath isosorbide dinitrate 30 mg tablet 30 mg PO TID 07/10/22 11/10/24 07/21/24 History calcium acetate(phosphat bind) 667 1,334 mg PO TIDWM 03/13/23 11/10/24 07/21/24 History mg capsule lactulose 10 gram/15 mL oral 10 g PO DAILY PRN constipation 03/13/23 11/10/24 07/21/24 History solution mirtazapine 15 mg tablet 15 mg PO BEDTIME 03/13/23 11/10/24 07/21/24 History carvedilol 25 mg tablet 25 mg PO BID 01/28/24 11/10/24 07/21/24 History amlodipine 10 mg tablet 10 mg PO DAILY 04/19/24 11/10/24 07/21/24 History buprenorphine 12 mg-naloxone 3 mg 1 film sublingual DAILY 04/19/24 11/10/24 07/21/24 History sublingual film glucose 4 gram chewable tablet 16 g PO Q15M PRN hypoglycemia 04/19/24 11/10/24 Unknown History sodium zirconium cyclosilicate 10 10 g PO MOWEFR@0900 04/19/24 11/10/24 07/21/24 History gram oral powder packet (Lokelma) vitamin B comp no.3-folic acid 1 1 tab PO DAILY 04/19/24 11/10/24 07/21/24 History mg-vit C 60 mg-biotin 300 mcg tablet ([facility]) diclofenac sodium 1 % topical gel 2 g topical BID PRN Pain 07/21/24 11/10/24 07/21/24 History ondansetron HCl 4 mg tablet 4 mg PO Q12H PRN nausea/vomiting 07/21/24 11/10/24 Unknown History trazodone 100 mg tablet 100 mg PO BEDTIME PRN insomnia 07/21/24 11/10/24 Unknown History acetaminophen 500 mg tablet 500 mg PO Q8H PRN pain 07/22/24 11/10/24 Unknown History docusate sodium 100 mg capsule 100 mg PO BID PRN Constipation 07/22/24 11/10/24 Unknown History (Colace) clonidine 0.3 mg/24 hr weekly 1 patch topical QWEEK 02/13/25 Unknown History transdermal patch doxazosin 1 mg tablet 4 mg PO BEDTIME 02/13/25 Unknown History hydralazine 100 mg tablet 100 mg PO TID 02/13/25 Unknown History losartan 100 mg tablet 100 mg PO DAILY 02/13/25 Unknown History mirtazapine 30 mg tablet 30 mg PO BEDTIME 02/13/25 Unknown History nicotine 14 mg/24 hr daily 1 patch topical DAILY 02/13/25 Unknown History transdermal patch polyethylene glycol 3350 17 17 g PO DAILY 02/13/25 Unknown History gram/dose oral powder Physical Exam Vital Signs: Vital Signs: Last Vital Signs Temp 97.6 F 02/14/25 03:18 Pulse 79 02/14/25 03:18 Resp 18 02/14/25 03:18 BP 180/76 H 02/14/25 03:18 Pulse Ox 97 02/14/25 03:18 O2 Del Method Nasal Cannula 02/14/25 03:18 O2 Flow Rate 2 02/14/25 03:18 Oxygen Flow Rate 4 02/13/25 15:02 BMI result Body Mass Index 26.2 Const: General: no acute distress, alert and awake Eyes: Sclerae: sclerae normal EOM: EOMs intact bilaterally Neck: Neck: Yes no lymphadenopathy, Yes trachea midline and Yes supple Resp: Effort & Inspection: normal respiratory effort and no respiratory distress Auscultation: crackles (Mild bilateral) Cardio: Rate: regular rate Rhythm: regular rhythm Heart sounds: no gallops, no murmurs and no rubs GI: Palpation (GI): Soft to palpation and Other GI palpation findings present ( Nontender) Auscultation: normal bowel sounds Extrem: General: No clubbing, No cyanosis and Yes edema (1+ bilateral) Results Laboratory Findings 02/14/25 07:01 02/14/25 07:01 Abnormal lab findings: Abnormal Labs 02/13/25 02/13/25 02/13/25 14:55 17:47 17:48 RBC 2.94 L D Hgb 9.5 L D Hct 28.9 L D MCV 98.3 H Immature Gran % (Auto) Neut % (Auto) Lymph % (Auto) 13.6 L [place] % (Auto) 12.0 H Lymph # (Auto) VBG HCO3 Chloride 94 L Carbon Dioxide 30 H BUN 41 H Creatinine 5.28 H* POC Glucose 154 H Random Glucose 127 H Calcium Phosphorus 4.7 H AST 75 H Alkaline Phosphatase 156 H Troponin I High Sens 81.8 H* D NT-Pro-B Natriuret Pep 51768.8 H 02/13/25 02/13/25 02/13/25 17:54 23:28 23:38 RBC Hgb Hct MCV Immature Gran % (Auto) Neut % (Auto) Lymph % (Auto) [place] % (Auto) Lymph # (Auto) VBG HCO3 32 H 32 H Chloride Carbon Dioxide BUN Creatinine POC Glucose Random Glucose Calcium Phosphorus AST Alkaline Phosphatase Troponin I High Sens 74.7 H* NT-Pro-B Natriuret Pep 02/14/25 07:01 RBC 2.53 L Hgb 8.1 L Hct 25.5 L MCV 100.8 H Immature Gran % (Auto) 0.5 H Neut % (Auto) 73.3 H Lymph % (Auto) 14.7 L [place] % (Auto) Lymph # (Auto) 0.9 L VBG HCO3 Chloride 94 L Carbon Dioxide BUN 49 H Creatinine 6.27 H* POC Glucose Random Glucose 243 H Calcium 8.2 L D Phosphorus AST Alkaline Phosphatase Troponin I High Sens NT-Pro-B Natriuret Pep Assessment and Plan (1) Acute respiratory failure with hypoxia: Status: Acute (2) Pulmonary edema: Status: Resolved (3) Atelectasis: Status: Acute Plan Impression: 69-year-old lady with underlying end-stage renal disease next hemodialysis admitted with dyspnea and hypoxia secondary to pulmonary edema with CT chest also showing right middle lobe atelectasis and some airway thickening. Patient respiratory symptoms are improving with dialysis. Recommendation: At this time evidence of lobar pneumonia, consider discontinuation of empiric antibiotics. Would consider repeating CT chest in 4 weeks to assess for chronicity of atelectasis, and if present at that time, may consider outpatient bronchoscopy. Procedures Date of Service Date of Service: 02/14/25
--- NOTE | 2025-02-14 10:51 | PHA.MEDREC ---
Pharmacy Consult ? Medication Reconciliation Pharmacy has completed the medication reconciliation. [facility] (Jessica [phone]) does not handle medications. Spoke with Heidy, visiting nurse [phone], to confirm medications.
[2025-02-14 12:34] LABS: Glucose, Whole Blood 145 mg/dL (60-115)
[2025-02-14] MEDS: Aspirin Enteric Coated 81 MG TABLET.DR PO (12:49)
[2025-02-14] MEDS: oxyCODONE HCl Immed Release 5 MG TABLET PO ×2 (12:49→21:27)
[2025-02-14] MEDS: Buprenorphine/Naloxone 12/3 mg FILM 1 FILM SUBLINGUAL (13:45)
[2025-02-14] MEDS: Albuterol/Iprat 2.5/0.5MG 3 ML AMPUL.NEB INHALE ×2 (15:25→19:45)
--- NOTE | 2025-02-14 15:36 | MHC.CM.PN ---
IMM GIVEN 02/14. THIS CM MET WITH PT WITH THE ASSISTANCE OF A FISH SALTER, PTS NETWORK SECURITY ANALYST PRESENT AT BEDSIDE. PT LIVES ALONE, HAS DAILY NETWORK SECURITY ANALYST SERVICES AM & PM, VNA SERVICES THROUGH [facility], AND OUTPT HD AT [facility], PT USES A CANE, WALKER, AND NEBULIZER. PTS NETWORK SECURITY ANALYST WILL TRANSPORT HER HOME AT [place] HCP ON FILE, HOWEVER PT STATES SHE WANTS IT CHANGED AND DOESN'T WANT THE PREVIOUS HCP'S CONTACTED (CAROL & IVET). PT STATES SHE WOULD LIKE HER NEW HCP TO BE [facility] ([phone]), ALTHOUGH SHE DOESN'T HAVE [facility]'S ADDRESS. PT REQUESTED THIS CM CALL [facility] TO COMPLETE HCP. THIS CM PLACED A CALL TO [facility] PER PTS REQUEST, NO ANSWER, AND NO OPTION OF LEAVING A VOICEMAIL. WILL ATTEMPT CALLING AGAIN AT A LATER TIME. DCP: RETURN HOME W/ RESUMPTION OF PREVIOUS [facility] VNA SERVICES, NETWORK SECURITY ANALYST SERVICES, AND OUTPT HD AT [facility] VIA NETWORK SECURITY ANALYST TRANSPORT. PCP: DR. LEONOR BARRY
[2025-02-14] MEDS: 0.9 % Sodium Chloride Flush 3 ML SYRINGE IVFLUSH (16:11)
[2025-02-14 16:22] LABS: Glucose, Whole Blood 328 mg/dL (60-115)
[2025-02-14 21:06] LABS: Glucose, Whole Blood 103 mg/dL (60-115)
[2025-02-15] VITALS (11 sets, daily range): BP systolic 148–179; BP diastolic 68–78; PULSE 66–91; RESP 16–18; TEMP 36–36.8; O2SAT 88–100
[2025-02-15] MEDS: 0.9 % Sodium Chloride Flush 3 ML SYRINGE IVFLUSH ×3 (00:30→20:18)
[2025-02-15 06:56] LABS: MANUAL DIFF FLAG NO
[2025-02-15 07:08] LABS: Hematocrit 28.4 % (37.0-47.0); Hemoglobin 8.8 g/dl (12.0-16.0); Imm Gran Abs Auto 0.03 X10*3/uL (0.00-0.03); Imm Gran Pct Auto 0.5 % (0.0-0.4); Lymphocytes Absolute Auto 1.2 X10*3/uL (1.2-4.9); Mean Corpuscular HGB Conc 31.0 g/dl (31.0-35.0); Mean Corpuscular Hemoglobin 31.2 pg (27.0-33.0); Mean Corpuscular Volume 100.7 fL (80.0-98.0); NRBC Abs Auto 0.000 X10*3/uL (0.0-0.012); NRBC Pct Auto 0.0 /100WBC (0.0-0.2); Platelet Count 217 X10*3/uL (160-400); Red Blood Count 2.82 X10*6/uL (4.20-5.50); White Blood Count 5.5 X10*3/uL (4.8-10.8)
[2025-02-15 07:19] LABS: Glucose, Whole Blood 166 mg/dL (60-115)
[2025-02-15 07:21] LABS: Anion Gap 17 (12-20); Blood Urea Nitrogen 34 mg/dL (9-16); Calcium 8.8 mg/dL (8.4-10.2); Carbon Dioxide 27 mmol/L (22-29); Chloride 95 mmol/L (96-108); Creatinine Clr Calc Pharmacy 10.5; Estimated Glomerular Filt Rate 10; Magnesium 2.1 mg/dL (1.6-2.6); Potassium 4.2 mmol/L (3.3-5.1); Sodium 135 mmol/L (135-145)
[2025-02-15] MEDS: Albuterol/Iprat 2.5/0.5MG 3 ML AMPUL.NEB INHALE ×4 (07:58→19:43)
[2025-02-15] MEDS: Aspirin Enteric Coated 81 MG TABLET.DR PO (08:05)
[2025-02-15] MEDS: Buprenorphine/Naloxone 12/3 mg FILM 1 FILM SUBLINGUAL (08:06)
[2025-02-15] MEDS: Nicotine 14 MG PATCH.TD24 TRANSDERMA (08:06)
--- NOTE | 2025-02-15 09:32 | ECG_ITS ---
Test Reason : CP Blood Pressure : */* mmHG Vent. Rate : 72 BPM Atrial Rate : 72 BPM P-R Int : 160 ms QRS Dur : 88 ms QT Int : 418 ms P-R-T Axes : 64 -6 40 degrees QTcB Int : 457 ms Normal sinus rhythm Possible Left atrial enlargement Left ventricular hypertrophy ( Sokolow-Burton , Cooper product ) Abnormal ECG When compared with ECG of 13-Feb-2025 18:28, No significant change was found Referred By: Daniel Fernandez Electronically Signed By: SALVADOR SARABIA
[2025-02-15 11:21] LABS: Glucose, Whole Blood 118 mg/dL (60-115)
--- NOTE | 2025-02-15 13:25 | HO.PM.IMPN ---
Subjective Subjective Date of Service: 02/15/25 Interval History: Breathing significantly improved, no longer on supplemental oxygen Still complains of productive cough Leg pain improved Of fever or chills No acute events overnight Review of Systems Review of Systems: Yes all other systems are reviewed and are negative Physical Exam Exam: Exam: General: AOx3, no acute distress Resp: Mild diffuse expiratory wheezing CVS: S1, S2, RRR GI: +BS, NT, no distention Skin: Warm, dry Neuro: Cranial nerves II-XII grossly intact bilaterally. Motor grossly intact bilaterally Extremities: No edema Psych: Appropriate affect Vital Signs: Vital Signs: Last Vital Signs Temp 96.9 F 02/15/25 11:25 Pulse 66 02/15/25 11:25 Resp 18 02/15/25 11:25 BP 162/72 H 02/15/25 11:25 Pulse Ox 100 02/15/25 11:25 O2 Del Method Room Air 02/15/25 07:04 O2 Flow Rate 2 02/14/25 12:00 Oxygen Flow Rate 4 02/13/25 15:02 BMI result Body Mass Index 26.2 Objective Data Active Medications Acetaminophen (Acetaminophen 325 Mg Tablet) 650 mg PO Q6H PRN PRN Reason: Pain, Mild 1-3,fever,headache Last Admin: 02/15/25 08:16 Dose: 650 mg Documented By: ROBY Albuterol Sulfate (Albuterol Sulfate (0.083%) 2.5 Mg/3 Ml Vial.Neb) 2.5 mg INHALE Q6H PRN PRN Reason: Shortness of Breath Albuterol Sulfate (Albuterol Sulfate 90 Mcg 8 Gm Inhaler) 2 puff INHALE Q4H PRN PRN Reason: Wheezing Albuterol/Ipratropium (Albuterol/Iprat 2.5/0.5mg 3 Ml Ampul.Neb) 3 ml INHALE RQ4H WHILE AWAKE [facility] Last Admin: 02/15/25 11:08 Dose: 3 ml Documented By: LARISSA Amlodipine Besylate (Amlodipine Besylate 10 Mg Tablet) 10 mg PO DAILY [facility]; Protocol Last Admin: 02/15/25 08:07 Dose: 10 mg Documented By: ROBY Aspirin (Aspirin Enteric Coated 81 Mg Tablet.) 81 mg PO DAILY [facility] Last Admin: 02/15/25 08:05 Dose: 81 mg Documented By: ROBY Buprenorphine/Naloxone (Buprenorphine/Naloxone 12/3 Mg Film) 1 film SUBLINGUAL DAILY [facility] Last Admin: 02/15/25 08:06 Dose: 1 film Documented By: ROBY Calcium Acetate (Calcium Acetate 667 Mg Capsule) 667 mg PO TIDWM [facility] Last Admin: 02/15/25 11:28 Dose: 667 mg Documented By: ROBY Calcium Carbonate (Calcium Carbonate 750 Mg Tab.Chew) 750 mg PO Q4H PRN PRN Reason: Heartburn Carvedilol (Carvedilol 25 Mg Tablet) 25 mg PO BID [facility]; Protocol Last Admin: 02/15/25 08:06 Dose: 25 mg Documented By: ROBY Ceftriaxone Sodium (Ceftriaxone Sodium 1 Gm Vial) 1 gm IVPUSH Q24H [facility] Last Admin: 02/14/25 13:54 Dose: 1 gm Documented By: SALLY Clonidine (Clonidine 0.3 Mg Patch.Tdwk) 0.3 mg TRANSDERMA WE [facility]; Protocol Dextrose (Dextrose 50 % 25 Gm/50 Ml Syringe) 25 gm IVPUSH Q15M PRN; Protocol PRN Reason: per Hypoglycemia Standing Ord. Docusate Sodium (Docusate Sodium 100 Mg Capsule) 100 mg PO BID [facility] Last Admin: 02/15/25 08:06 Dose: 100 mg Documented By: ROBY Gabapentin (Gabapentin 100 Mg Capsule) 100 mg PO TID [facility] Last Admin: 02/15/25 08:05 Dose: 100 mg Documented By: ROBY Glucose (Glucose Gel 15 Gm Gel..Gram.) 15 gm PO Q15M PRN; Protocol PRN Reason: per Hypoglycemia Standing Ord. Guaifenesin/Codeine Phosphate (Guaifen/Codeine Sf 200/20/10ml 10 Ml Liquid) 5 ml PO Q4H PRN PRN Reason: Cough Heparin Sodium (Porcine) (Heparin Sodium,Porcine 5,000 Unit/Ml Vial) 5,000 unit SUBCUT Q12H [facility] Last Admin: 02/15/25 11:28 Dose: 5,000 unit Documented By: ROBY Hydralazine HCl (Hydralazine Hcl 50 Mg Tablet) 100 mg PO TID [facility]; Protocol Last Admin: 02/15/25 08:04 Dose: 100 mg Documented By: ROBY Doxycycline Hyclate 100 mg/ (Sodium Chloride) 250 mls @ 166.67 mls/hr IV Q12H [facility] Last Infusion: 02/15/25 04:14 Dose: Infused Documented By: KELLIE Insulin Human Lispro (Insulin Lispro 100 Unit/Ml 3 Ml Vial) 0 unit SUBCUT QIDACHS [facility]; Protocol Last Admin: 02/15/25 11:23 Dose: Not Given Documented By: ROBY Non-Admin Reason: No Insulin Coverage Isosorbide Dinitrate (Isosorbide Dinitrate 10 Mg Tablet) 30 mg PO TID [facility]; Protocol Last Admin: 02/15/25 08:05 Dose: 30 mg Documented By: ROBY Lactulose (Lactulose 20 Gm/30 Ml Solution) 10 gm PO DAILY PRN PRN Reason: Constipation Losartan Potassium (Losartan Potassium 50 Mg Tablet) 100 mg PO DAILY [facility]; Protocol Last Admin: 02/15/25 08:05 Dose: 100 mg Documented By: ROBY Magnesium Hydroxide (Milk Of Magnesia 30 Ml Oral.Susp) 30 ml PO DAILY PRN PRN Reason: Constipation Melatonin (Melatonin 3 Mg Tablet) 6 mg PO BEDTIME PRN PRN Reason: Insomnia Mirtazapine (Mirtazapine 15 Mg Tablet) 30 mg PO BEDTIME [facility] Last Admin: 02/14/25 21:26 Dose: 30 mg Documented By: KELLIE Multivitamins/Vitamin C (Multivitamin Tablet) 1 tab PO DAILY [facility] Last Admin: 02/15/25 08:05 Dose: 1 tab Documented By: ROBY Nicotine (Nicotine 14 Mg Patch.Td24) 14 mg TRANSDERMA DAILY [facility] Last Admin: 02/15/25 08:06 Dose: 14 mg Documented By: ROBY Omeprazole (Omeprazole 20 Mg Capsule.Dr) 20 mg PO DAILY@0630 [facility] Last Admin: 02/15/25 05:24 Dose: 20 mg Documented By: KELLIE Ondansetron HCl (Ondansetron Hcl 4 Mg/2 Ml Vial) 4 mg IVPUSH Q8H PRN PRN Reason: Nausea and Vomiting Last Admin: 02/14/25 12:50 Dose: 4 mg Documented By: SALLY Oxycodone HCl (Oxycodone Hcl Immed Release 5 Mg Tablet) 5 mg PO Q6H PRN PRN Reason: Pain, Severe (Pain Scale 7-10) Last Admin: 02/14/25 21:27 Dose: 5 mg Documented By: KELLIE Polyethylene Glycol (Polyethylene Glycol 3350 17 Gm Powd.Pack) 17 gm PO DAILY [facility] Last Admin: 02/15/25 08:06 Dose: 17 gm Documented By: ROBY Sodium Chloride (0.9 % Sodium Chloride Flush 3 Ml Syringe) 3 ml IVFLUSH QSHIFT [facility] Last Admin: 02/15/25 08:16 Dose: 3 ml Documented By: ROBY Sodium Zirconium Cyclosilicate (Sodium Zirconium Cyclosilicate 10 Gm Powd.Pack) 10 gm PO MOWEFR@0900 [facility] Tramadol HCl (Tramadol Hcl 50 Mg Tablet) 50 mg PO Q6H PRN PRN Reason: Pain, Moderate(Pain Scale 4-6) Last Admin: 02/15/25 05:03 Dose: 50 mg Documented By: KELLIE Trazodone HCl (Trazodone Hcl 100 Mg Tablet) 100 mg PO BEDTIME PRN PRN Reason: Insomnia Labs 02/15/25 06:25 02/15/25 06:25 Labs: Laboratory Results - last 24 hr 02/14/25 02/14/25 02/15/25 16:14 21:01 06:25 MCV 100.7 H MCH 31.2 MCHC 31.0 RDW 13.9 Plt Count 217 MPV 9.8 Immature Gran % (Auto) 0.5 H Neut % (Auto) 62.2 Lymph % (Auto) 22.7 [place] % (Auto) 10.4 Eos % (Auto) 3.8 Baso % (Auto) 0.4 Lymph # (Auto) 1.2 [place] # (Auto) 0.6 Eos # (Auto) 0.2 Baso # (Auto) 0.0 Abs Immat Gran (auto) 0.03 Absolute Neuts (auto) 3.4 Absolute Nucleated RBC 0.000 Nucleated RBC % (auto) 0.0 Anion Gap 17 Estim Creat Clear Calc 10.5 Estimated GFR 10 POC Glucose 328 H 103 Random Glucose 202 H Calcium 8.8 D Magnesium 2.1 02/15/25 02/15/25 07:01 11:17 MCV MCH MCHC RDW Plt Count MPV Immature Gran % (Auto) Neut % (Auto) Lymph % (Auto) [place] % (Auto) Eos % (Auto) Baso % (Auto) Lymph # (Auto) [place] # (Auto) Eos # (Auto) Baso # (Auto) Abs Immat Gran (auto) Absolute Neuts (auto) Absolute Nucleated RBC Nucleated RBC % (auto) Anion Gap Estim Creat Clear Calc Estimated GFR POC Glucose 166 H 118 H Random Glucose Calcium Magnesium Microbiology Microbiology Results: Microbiology 02/13/25 17:47 Blood Culture - Preliminary Blood - Venous No growth after 24 hours. 02/13/25 17:47 Blood Culture - Preliminary Blood - Venous No growth after 24 hours. Assessment and Plan (1) Acute respiratory failure with hypoxia: Status: Acute Plan Patient is a 69-year-old English-speaking female with a past medical history significant for pulmonary hypertension, asthma/COPD overlap, hypertension, diabetes, ESRD TTS, HFpEF, hypertrophic cardiomyopathy, prolapsed rectum and recent admission at [facility] for hypertensive emergency with flash pulmonary edema placed on BiPAP with dialysis, who presented to the ED due to hypoxia and dyspnea. Acute hypoxic respiratory failure secondary to pneumonia with mucus plugging on CT - likely multifactorial: fluid overloaded from ESRD and possible pneumonia - pulmonology consulted, feels CT more indicative of pulmonary edema rather than pneumonia; no need for inpatient bronch - pulmonology question need for antibiotics, but will continue ceftriaxone and doxycycline given productive cough and SOB x2 weeks - follow up with pulmonology in [address] of chest and need for possible outpatient bronchoscopy - no longer on supplemental O2 post-dialysis elevated troponin, likely demand, EKG ok - tropes flat at 81.8 with repeat 74.7 - monitor on tele ESRD on HD TTS - follows with [facility] - received dialysis on Sunday rectal prolapse/proctitis - ongoing x2 years - multiple previous surgical attempts has been postponed due a variety of different ongoing medical issues - general surgery consulted, recommend high-fiber diet and stool softeners to avoid straining with bowel movements - outpatient surgical repair once pt medically stable leg pain - likely diabetic neuropathy - started on gabapentin 100 mg t.i.d. with improvement, can likely continue at asthma/COPD overlap - duonebs PRN HTN/hypertensive urgency - continue home meds DM - SSI HFpEF, no acute exacerbation - BNP likely elevated due to ESRD - no response to 100mg IV lasix full code VTE prophy: heparin Patient requires continued hospitalization for treatment and further evaluation of acute hypoxic respiratory failure in the setting of ESRD and likely superimposed requiring supplemental O2 and IV abx. Pt should be able to be discharged tomorrow. Quality Stroke Does the patient have a stroke diagnosis?: No VTE Prior VTE?: No VTE Risk Level:: Medical - moderate - high VTE Device Contraindication: Treatment Not Indicated VTE Drug Contraindication: N/A - Med Ordered
[2025-02-15 16:21] LABS: Glucose, Whole Blood 208 mg/dL (60-115)
[2025-02-15] MEDS: oxyCODONE HCl Immed Release 5 MG TABLET PO (20:16)
[2025-02-15 20:24] LABS: Glucose, Whole Blood 130 mg/dL (60-115)
[2025-02-16] VITALS (10 sets, daily range): BP systolic 153–203; BP diastolic 62–88; PULSE 70–88; RESP 15–19; TEMP 36.4–37.3; O2SAT 91–97
[2025-02-16] MEDS: Albuterol/Iprat 2.5/0.5MG 3 ML AMPUL.NEB INHALE ×3 (07:29→20:42)
[2025-02-16 07:41] LABS: Glucose, Whole Blood 116 mg/dL (60-115)
[2025-02-16 08:41] LABS: MANUAL DIFF FLAG NO
[2025-02-16 08:47] LABS: Hematocrit 29.0 % (37.0-47.0); Hemoglobin 9.1 g/dl (12.0-16.0); Imm Gran Abs Auto 0.06 X10*3/uL (0.00-0.03); Imm Gran Pct Auto 1.0 % (0.0-0.4); Lymphocytes Absolute Auto 1.1 X10*3/uL (1.2-4.9); Mean Corpuscular HGB Conc 31.4 g/dl (31.0-35.0); Mean Corpuscular Hemoglobin 31.4 pg (27.0-33.0); Mean Corpuscular Volume 100.0 fL (80.0-98.0); NRBC Abs Auto 0.000 X10*3/uL (0.0-0.012); NRBC Pct Auto 0.0 /100WBC (0.0-0.2); Platelet Count 223 X10*3/uL (160-400); Red Blood Count 2.90 X10*6/uL (4.20-5.50); White Blood Count 5.7 X10*3/uL (4.8-10.8)
[2025-02-16] MEDS: Aspirin Enteric Coated 81 MG TABLET.DR PO (08:59)
[2025-02-16] MEDS: Nicotine 14 MG PATCH.TD24 TRANSDERMA (09:00)
[2025-02-16] MEDS: 0.9 % Sodium Chloride Flush 3 ML SYRINGE IVFLUSH ×3 (09:00→21:16)
[2025-02-16] MEDS: Buprenorphine/Naloxone 12/3 mg FILM 1 FILM SUBLINGUAL (09:00)
[2025-02-16 09:02] LABS: Blood Urea Nitrogen 55 mg/dL (9-16); Calcium 9.1 mg/dL (8.4-10.2); Creatinine Clr Calc Pharmacy 7.4; Estimated Glomerular Filt Rate 7; Magnesium 2.1 mg/dL (1.6-2.6)
[2025-02-16 09:09] LABS: Anion Gap 20 (12-20); Carbon Dioxide 26 mmol/L (22-29); Chloride 95 mmol/L (96-108); Potassium 5.5 mmol/L (3.3-5.1); Sodium 135 mmol/L (135-145)
[2025-02-16 11:21] LABS: Glucose, Whole Blood 143 mg/dL (60-115)
--- NOTE | 2025-02-16 11:58 | P.PNGS_ITS ---
Subjective Subjective Date of Service: 02/16/25 <Mike Henderson PA-C - Last Filed: 02/16/25 12:19> 02/16/25 <Edmundo Luis MD - Last Filed: 02/16/25 15:48> Interval history: doing well, her biggest concern is her breathing. She does report that she has some pain in the rectum but not as bad as the other day. She reports it usually comes out when she has a bowel movment and she thinks that he has had one. <Mike Henderson PA-C - Last Filed: 02/16/25 12:19> Physical Exam 2 Vital Signs: Vital Signs: Last Vital Signs Temp 97.6 F 02/16/25 08:00 Pulse 88 02/16/25 11:55 Resp 18 02/16/25 11:55 BP 172/81 H 02/16/25 11:55 Pulse Ox 91 L 02/16/25 11:55 O2 Del Method Room Air 02/16/25 11:55 O2 Flow Rate 2 02/16/25 03:30 Oxygen Flow Rate 4 02/13/25 15:02 BMI result Body Mass Index 26.2 <Mike Henderson PA-C - Last Filed: 02/16/25 12:19> Const: General: comfortable and no acute distress <Mike Henderson PA-C - Last Filed: 02/16/25 12:19> Orientation/consciousness: patient oriented x3 <Mike Henderson PA-C - Last Filed: 02/16/25 12:19> GI: Other: Nurse, caridad served as my bread jockey <Mike Henderson PA-C - Last Filed: 02/16/25 12:19> Rectal Exam - Female: decreased sphincter tone and Rectal prolapse (reduced at this point, tissue viable, well perfused) <Mike Henderson PA-C - Last Filed: 02/16/25 12:19> Neuro: General: patient oriented x3 <MONIQUE [place] Last Filed: 02/16/25 12:19> Objective Data Active Medications Acetaminophen (Acetaminophen 325 Mg Tablet) 650 mg PO Q6H PRN PRN Reason: Pain, Mild 1-3,fever,headache Last Admin: 02/16/25 01:53 Dose: 650 mg Documented By: GENE Albuterol Sulfate (Albuterol Sulfate (0.083%) 2.5 Mg/3 Ml Vial.Neb) 2.5 mg INHALE Q6H PRN PRN Reason: Shortness of Breath Albuterol Sulfate (Albuterol Sulfate 90 Mcg 8 Gm Inhaler) 2 puff INHALE Q4H PRN PRN Reason: Wheezing Albuterol/Ipratropium (Albuterol/Iprat 2.5/0.5mg 3 Ml Ampul.Neb) 3 ml INHALE RQ4H WHILE AWAKE [facility] Last Admin: 02/16/25 11:13 Dose: 3 ml Documented By: ZORAIDA Amlodipine Besylate (Amlodipine Besylate 10 Mg Tablet) 10 mg PO DAILY [facility]; Protocol Last Admin: 02/16/25 08:59 Dose: 10 mg Documented By: KYUNG Aspirin (Aspirin Enteric Coated 81 Mg Tablet.) 81 mg PO DAILY [facility] Last Admin: 02/16/25 08:59 Dose: 81 mg Documented By: KYUNG Buprenorphine/Naloxone (Buprenorphine/Naloxone 12/3 Mg Film) 1 film SUBLINGUAL DAILY [facility] Last Admin: 02/16/25 09:00 Dose: 1 film Documented By: KYUNG Calcium Acetate (Calcium Acetate 667 Mg Capsule) 667 mg PO TIDWM [facility] Last Admin: 02/16/25 08:59 Dose: 667 mg Documented By: KYUNG Calcium Carbonate (Calcium Carbonate 750 Mg Tab.Chew) 750 mg PO Q4H PRN PRN Reason: Heartburn Carvedilol (Carvedilol 25 Mg Tablet) 25 mg PO BID [facility]; Protocol Last Admin: 02/16/25 09:03 Dose: 25 mg Documented By: KYUNG Ceftriaxone Sodium (Ceftriaxone Sodium 1 Gm Vial) 1 gm IVPUSH Q24H [facility] Last Admin: 02/15/25 13:34 Dose: 1 gm Documented By: ROBY Clonidine (Clonidine 0.3 Mg Patch.Tdwk) 0.3 mg TRANSDERMA WE [facility]; Protocol Dextrose (Dextrose 50 % 25 Gm/50 Ml Syringe) 25 gm IVPUSH Q15M PRN; Protocol PRN Reason: per Hypoglycemia Standing Ord. Docusate Sodium (Docusate Sodium 100 Mg Capsule) 100 mg PO BID [facility] Last Admin: 02/16/25 08:58 Dose: 100 mg Documented By: KYUNG Gabapentin (Gabapentin 100 Mg Capsule) 100 mg PO TID [facility] Last Admin: 02/16/25 08:59 Dose: 100 mg Documented By: KYUNG Glucose (Glucose Gel 15 Gm Gel..Gram.) 15 gm PO Q15M PRN; Protocol PRN Reason: per Hypoglycemia Standing Ord. Guaifenesin/Codeine Phosphate (Guaifen/Codeine Sf 200/20/10ml 10 Ml Liquid) 5 ml PO Q4H PRN PRN Reason: Cough Heparin Sodium (Porcine) (Heparin Sodium,Porcine 5,000 Unit/Ml Vial) 5,000 unit SUBCUT Q12H [facility] Last Admin: 02/15/25 22:21 Dose: 5,000 unit Documented By: GENE Hydralazine HCl (Hydralazine Hcl 50 Mg Tablet) 100 mg PO TID [facility]; Protocol Last Admin: 02/16/25 08:58 Dose: 100 mg Documented By: KYUNG Doxycycline Hyclate 100 mg/ (Sodium Chloride) 250 mls @ 166.67 mls/hr IV Q12H [facility] Last Infusion: 02/16/25 03:24 Dose: Infused Documented By: GENE Insulin Human Lispro (Insulin Lispro 100 Unit/Ml 3 Ml Vial) 0 unit SUBCUT QIDACHS [facility]; Protocol Last Admin: 02/16/25 11:26 Dose: Not Given Documented By: KYUNG Non-Admin Reason: No Insulin Coverage Isosorbide Dinitrate (Isosorbide Dinitrate 10 Mg Tablet) 30 mg PO TID [facility]; Protocol Last Admin: 02/16/25 08:59 Dose: 30 mg Documented By: KYUNG Lactulose (Lactulose 20 Gm/30 Ml Solution) 10 gm PO DAILY PRN PRN Reason: Constipation Losartan Potassium (Losartan Potassium 50 Mg Tablet) 100 mg PO DAILY [facility]; Protocol Last Admin: 02/16/25 08:59 Dose: 100 mg Documented By: KYUNG Magnesium Hydroxide (Milk Of Magnesia 30 Ml Oral.Susp) 30 ml PO DAILY PRN PRN Reason: Constipation Melatonin (Melatonin 3 Mg Tablet) 6 mg PO BEDTIME PRN PRN Reason: Insomnia Mirtazapine (Mirtazapine 15 Mg Tablet) 30 mg PO BEDTIME [facility] Last Admin: 02/15/25 20:17 Dose: 30 mg Documented By: GENE Multivitamins/Vitamin C (Multivitamin Tablet) 1 tab PO DAILY [facility] Last Admin: 02/16/25 08:59 Dose: 1 tab Documented By: KYUNG Nicotine (Nicotine 14 Mg Patch.Td24) 14 mg TRANSDERMA DAILY [facility] Last Admin: 02/16/25 09:00 Dose: 14 mg Documented By: KYUNG Omeprazole (Omeprazole 20 Mg Capsule.Dr) 20 mg PO DAILY@0630 [facility] Last Admin: 02/16/25 05:42 Dose: 20 mg Documented By: GENE Ondansetron HCl (Ondansetron Hcl 4 Mg/2 Ml Vial) 4 mg IVPUSH Q8H PRN PRN Reason: Nausea and Vomiting Last Admin: 02/14/25 12:50 Dose: 4 mg Documented By: SALLY Oxycodone HCl (Oxycodone Hcl Immed Release 5 Mg Tablet) 5 mg PO Q6H PRN PRN Reason: Pain, Severe (Pain Scale 7-10) Last Admin: 02/15/25 20:16 Dose: 5 mg Documented By: GENE Polyethylene Glycol (Polyethylene Glycol 3350 17 Gm Powd.Pack) 17 gm PO DAILY [facility] Last Admin: 02/16/25 08:57 Dose: 17 gm Documented By: KYUNG Sodium Chloride (0.9 % Sodium Chloride Flush 3 Ml Syringe) 3 ml IVFLUSH QSHIFT [facility] Last Admin: 02/16/25 09:00 Dose: 3 ml Documented By: KYUNG Sodium Zirconium Cyclosilicate (Sodium Zirconium Cyclosilicate 10 Gm Powd.Pack) 10 gm PO MOWEFR@0900 [facility] Last Admin: 02/16/25 08:57 Dose: 10 gm Documented By: KYUNG Tramadol HCl (Tramadol Hcl 50 Mg Tablet) 50 mg PO Q6H PRN PRN Reason: Pain, Moderate(Pain Scale 4-6) Last Admin: 02/15/25 13:32 Dose: 50 mg Documented By: ROBY Trazodone HCl (Trazodone Hcl 100 Mg Tablet) 100 mg PO BEDTIME PRN PRN Reason: Insomnia <Mike Henderson PA-C - Last Filed: 02/16/25 12:19> Labs CBC & Chem 7: 02/16/25 08:17 02/16/25 08:17 <Mike Henderson PA-C - Last Filed: 02/16/25 12:19> Labs: Laboratory Results - last 24 hr 02/15/25 02/15/25 02/16/25 16:16 20:17 07:06 MCV MCH MCHC RDW Plt Count MPV Immature Gran % (Auto) Neut % (Auto) Lymph % (Auto) [place] % (Auto) Eos % (Auto) Baso % (Auto) Lymph # (Auto) [place] # (Auto) Eos # (Auto) Baso # (Auto) Abs Immat Gran (auto) Absolute Neuts (auto) Absolute Nucleated RBC Nucleated RBC % (auto) Anion Gap Estim Creat Clear Calc Estimated GFR POC Glucose 208 H 130 H 116 H Random Glucose Calcium Magnesium 02/16/25 02/16/25 08:17 11:17 MCV 100.0 H MCH 31.4 MCHC 31.4 RDW 13.9 Plt Count 223 MPV 9.8 Immature Gran % (Auto) 1.0 H Neut % (Auto) 63.4 Lymph % (Auto) 18.4 L [place] % (Auto) 9.3 Eos % (Auto) 7.2 H Baso % (Auto) 0.7 Lymph # (Auto) 1.1 L [place] # (Auto) 0.5 Eos # (Auto) 0.4 Baso # (Auto) 0.0 Abs Immat Gran (auto) 0.06 H Absolute Neuts (auto) 3.6 Absolute Nucleated RBC 0.000 Nucleated RBC % (auto) 0.0 Anion Gap 20 Estim Creat Clear Calc 7.4 Estimated GFR 7 POC Glucose 143 H Random Glucose 146 H Calcium 9.1 Magnesium 2.1 <Mike Henderson PA-C - Last Filed: 02/16/25 12:19> Microbiology Microbiology Results: Microbiology 02/13/25 17:47 Blood Culture - Preliminary Blood - Venous No growth after 48 hours. 02/13/25 17:47 Blood Culture - Preliminary Blood - Venous No growth after 48 hours. <Mike Henderson PA-C - Last Filed: 02/16/25 12:19> Procedures Date of Service Date of Service: 02/16/25 <Mike Henderson PA-C - Last Filed: 02/16/25 12:19> 02/16/25 <Edmundo Luis MD - Last Filed: 02/16/25 15:48> Progress Note: A&P Assessment and plan (1) Rectal prolapse: Status: Acute <Mike Henderson PA-C - Last Filed: 02/16/25 12:19> Assessment and Plan: The patient is known to me for prolapse of the rectum, apparently full- thickness She has multiple medical problems including CHF Prolapse currently is reduced She has been referred to [facility] for re-evaluation for further management She understands the plan Seen and examined independently <Edmundo Luis MD - Last Filed: 02/16/25 15:48> Assessment and Plan: 69 year old female with a history of pulmonary hypertension, asthma/COPD overlap, hypertension, diabetes, ESRD TTS, HFpEF, hypertrophic cardiomyopathy, prolapsed rectum, admitted for hypoxia and dyspnea. General surgery consulted for rectal prolapse. patient is well known to Dr luis who has seen her in the office, last seen 2024. He had referred her to [facility] for surgical intervention. The prolapse was able to be reduced in the ED. Currently she still has some pain in the rectum, on exam the rectum remains reduced, there appears to be loss of sphincter tone. the tissue appears pink and viable. She is also incontinenent of stool. I would recommend that she have a good bowel regiemn to prevent straining which will make her prolapse recur. No plan for surgical intervention in this admission, she should continue to follow up with referral to [facility] to have this repaired. General surgery will sign off at this time, please reconsult as needed <Mike Henderson PA-C - Last Filed: 02/16/25 12:19> Time Spent With Patient Time: Total time managing care of this patient today ____ minutes. <Mike Henderson PA-C - Last Filed: 02/16/25 12:19> Quality Stroke Does the patient have a stroke diagnosis?: No <Mike Henderson PA-C - Last Filed: 02/16/25 12:19> VTE Prior VTE?: No <Mike Henderson PA-C - Last Filed: 02/16/25 12:19> VTE Risk Level:: Medical - moderate - high <Mike Henderson PA-C - Last Filed: 02/16/25 12:19> VTE Device Contraindication: Treatment Not Indicated <Mike Henderson PA-C - Last Filed: 02/16/25 12:19> VTE Drug Contraindication: N/A - Med Ordered <Mike Henderson PA-C - Last Filed: 02/16/25 12:19>
--- NOTE | 2025-02-16 12:43 | MHC.CM.PN ---
Per rounds, pt. still requiring acute care for acute respiratory failure with hypoxia. DCP: home, resume [facility] [employer] [facility], VNA, and HD services.
[2025-02-16 16:08] LABS: Glucose, Whole Blood 224 mg/dL (60-115)
--- NOTE | 2025-02-16 17:14 | P.PNIM_ITS ---
Subjective Subjective Date of Service: 02/16/25 Interval History: Patient feels much better today. No new complaints or issues to report. Review of Systems Review of Systems: Yes all other systems are reviewed and are negative Physical Exam 2 Exam: Exam: General: A&O x3, oriented to time place person and situation, comfortable, no pain Cardiac: S1, S2 auscultated with no S3/4, no MRG. Well perfused. Respiratory: Normal breath sounds auscultated throughout all lung zones, without wheezing, rales. Normal rate. GI/ : No abdominal pain on palpation, no masses or distentions. MSK: Normal ambulation without pain at bony prominences or musculature Neurological: Normal neurological examination on overview, without obvious CN II-XII abnormalities. Vital Signs: Vital Signs: Last Vital Signs Temp 98.3 F 02/16/25 15:22 Pulse 84 02/16/25 15:22 Resp 18 02/16/25 15:22 BP 174/62 H 02/16/25 15:22 Pulse Ox 92 02/16/25 15:22 O2 Del Method Room Air 02/16/25 15:22 O2 Flow Rate 2 02/16/25 03:30 Oxygen Flow Rate 4 02/13/25 15:02 BMI result Body Mass Index 26.2 Objective Data Active Medications Acetaminophen (Acetaminophen 325 Mg Tablet) 650 mg PO Q6H PRN PRN Reason: Pain, Mild 1-3,fever,headache Last Admin: 02/16/25 01:53 Dose: 650 mg Documented By: GENE Albuterol Sulfate (Albuterol Sulfate (0.083%) 2.5 Mg/3 Ml Vial.Neb) 2.5 mg INHALE Q6H PRN PRN Reason: Shortness of Breath Albuterol Sulfate (Albuterol Sulfate 90 Mcg 8 Gm Inhaler) 2 puff INHALE Q4H PRN PRN Reason: Wheezing Albuterol/Ipratropium (Albuterol/Iprat 2.5/0.5mg 3 Ml Ampul.Neb) 3 ml INHALE RQ4H WHILE AWAKE [facility] Last Admin: 02/16/25 15:09 Dose: Not Given Documented By: BHAVANA Non-Admin Reason: Nausea Amlodipine Besylate (Amlodipine Besylate 10 Mg Tablet) 10 mg PO DAILY [facility]; Protocol Last Admin: 02/16/25 08:59 Dose: 10 mg Documented By: KYUNG Aspirin (Aspirin Enteric Coated 81 Mg Tablet.Dr) 81 mg PO DAILY [facility] Last Admin: 02/16/25 08:59 Dose: 81 mg Documented By: KYUNG Buprenorphine/Naloxone (Buprenorphine/Naloxone 12/3 Mg Film) 1 film SUBLINGUAL DAILY [facility] Last Admin: 02/16/25 09:00 Dose: 1 film Documented By: KYUNG Calcium Acetate (Calcium Acetate 667 Mg Capsule) 667 mg PO TIDWM [facility] Last Admin: 02/16/25 16:43 Dose: 667 mg Documented By: KYUNG Calcium Carbonate (Calcium Carbonate 750 Mg Tab.Chew) 750 mg PO Q4H PRN PRN Reason: Heartburn Carvedilol (Carvedilol 25 Mg Tablet) 25 mg PO BID [facility]; Protocol Last Admin: 02/16/25 09:03 Dose: 25 mg Documented By: KYUNG Ceftriaxone Sodium (Ceftriaxone Sodium 1 Gm Vial) 1 gm IVPUSH Q24H [facility] Last Admin: 02/16/25 13:42 Dose: 1 gm Documented By: KYUNG Clonidine (Clonidine 0.3 Mg Patch.Tdwk) 0.3 mg TRANSDERMA WE [facility]; Protocol Dextrose (Dextrose 50 % 25 Gm/50 Ml Syringe) 25 gm IVPUSH Q15M PRN; Protocol PRN Reason: per Hypoglycemia Standing Ord. Docusate Sodium (Docusate Sodium 100 Mg Capsule) 100 mg PO BID [facility] Last Admin: 02/16/25 08:58 Dose: 100 mg Documented By: KYUNG Gabapentin (Gabapentin 100 Mg Capsule) 100 mg PO TID [facility] Last Admin: 02/16/25 14:37 Dose: 100 mg Documented By: KYUNG Glucose (Glucose Gel 15 Gm Gel..Gram.) 15 gm PO Q15M PRN; Protocol PRN Reason: per Hypoglycemia Standing Ord. Guaifenesin/Codeine Phosphate (Guaifen/Codeine Sf 200/20/10ml 10 Ml Liquid) 5 ml PO Q4H PRN PRN Reason: Cough Heparin Sodium (Porcine) (Heparin Sodium,Porcine 5,000 Unit/Ml Vial) 5,000 unit SUBCUT Q12H [facility] Last Admin: 02/16/25 12:32 Dose: 5,000 unit Documented By: KYUNG Hydralazine HCl (Hydralazine Hcl 50 Mg Tablet) 100 mg PO TID [facility]; Protocol Last Admin: 02/16/25 14:37 Dose: 100 mg Documented By: KYUNG Doxycycline Hyclate 100 mg/ (Sodium Chloride) 250 mls @ 166.67 mls/hr IV Q12H [facility] Last Infusion: 02/16/25 15:21 Dose: Infused Documented By: NIDIA Insulin Human Lispro (Insulin Lispro 100 Unit/Ml 3 Ml Vial) 0 unit SUBCUT QIDACHS [facility]; Protocol Last Admin: 02/16/25 16:43 Dose: 4 unit Documented By: KYUNG Isosorbide Dinitrate (Isosorbide Dinitrate 10 Mg Tablet) 30 mg PO TID [facility]; Protocol Last Admin: 02/16/25 14:37 Dose: 30 mg Documented By: KYUNG Lactulose (Lactulose 20 Gm/30 Ml Solution) 10 gm PO DAILY PRN PRN Reason: Constipation Losartan Potassium (Losartan Potassium 50 Mg Tablet) 100 mg PO DAILY [facility]; Protocol Last Admin: 02/16/25 08:59 Dose: 100 mg Documented By: KYUNG Magnesium Hydroxide (Milk Of Magnesia 30 Ml Oral.Susp) 30 ml PO DAILY PRN PRN Reason: Constipation Melatonin (Melatonin 3 Mg Tablet) 6 mg PO BEDTIME PRN PRN Reason: Insomnia Mirtazapine (Mirtazapine 15 Mg Tablet) 30 mg PO BEDTIME [facility] Last Admin: 02/15/25 20:17 Dose: 30 mg Documented By: GENE Multivitamins/Vitamin C (Multivitamin Tablet) 1 tab PO DAILY [facility] Last Admin: 02/16/25 08:59 Dose: 1 tab Documented By: KYUNG Nicotine (Nicotine 14 Mg Patch.Td24) 14 mg TRANSDERMA DAILY [facility] Last Admin: 02/16/25 09:00 Dose: 14 mg Documented By: KYUNG Omeprazole (Omeprazole 20 Mg Capsule.Dr) 20 mg PO DAILY@0630 [facility] Last Admin: 02/16/25 05:42 Dose: 20 mg Documented By: GENE Ondansetron HCl (Ondansetron Hcl 4 Mg/2 Ml Vial) 4 mg IVPUSH Q8H PRN PRN Reason: Nausea and Vomiting Last Admin: 02/14/25 12:50 Dose: 4 mg Documented By: SALLY Oxycodone HCl (Oxycodone Hcl Immed Release 5 Mg Tablet) 5 mg PO Q6H PRN PRN Reason: Pain, Severe (Pain Scale 7-10) Last Admin: 02/15/25 20:16 Dose: 5 mg Documented By: GENE Polyethylene Glycol (Polyethylene Glycol 3350 17 Gm Powd.Pack) 17 gm PO DAILY [facility] Last Admin: 02/16/25 08:57 Dose: 17 gm Documented By: KYUNG Sodium Chloride (0.9 % Sodium Chloride Flush 3 Ml Syringe) 3 ml IVFLUSH QSHIFT [facility] Last Admin: 02/16/25 16:43 Dose: 3 ml Documented By: KYUNG Sodium Zirconium Cyclosilicate (Sodium Zirconium Cyclosilicate 10 Gm Powd.Pack) 10 gm PO MOWEFR@0900 [facility] Last Admin: 02/16/25 08:57 Dose: 10 gm Documented By: KYUNG Tramadol HCl (Tramadol Hcl 50 Mg Tablet) 50 mg PO Q6H PRN PRN Reason: Pain, Moderate(Pain Scale 4-6) Last Admin: 02/15/25 13:32 Dose: 50 mg Documented By: ROBY Trazodone HCl (Trazodone Hcl 100 Mg Tablet) 100 mg PO BEDTIME PRN PRN Reason: Insomnia Labs 02/16/25 08:17 02/16/25 08:17 Labs: Laboratory Results - last 24 hr 02/15/25 02/16/25 02/16/25 20:17 07:06 08:17 MCV 100.0 H MCH 31.4 MCHC 31.4 RDW 13.9 Plt Count 223 MPV 9.8 Immature Gran % (Auto) 1.0 H Neut % (Auto) 63.4 Lymph % (Auto) 18.4 L [place] % (Auto) 9.3 Eos % (Auto) 7.2 H Baso % (Auto) 0.7 Lymph # (Auto) 1.1 L [place] # (Auto) 0.5 Eos # (Auto) 0.4 Baso # (Auto) 0.0 Abs Immat Gran (auto) 0.06 H Absolute Neuts (auto) 3.6 Absolute Nucleated RBC 0.000 Nucleated RBC % (auto) 0.0 Anion Gap 20 Estim Creat Clear Calc 7.4 Estimated GFR 7 POC Glucose 130 H 116 H Random Glucose 146 H Calcium 9.1 Magnesium 2.1 02/16/25 02/16/25 11:17 16:05 MCV MCH MCHC RDW Plt Count MPV Immature Gran % (Auto) Neut % (Auto) Lymph % (Auto) [place] % (Auto) Eos % (Auto) Baso % (Auto) Lymph # (Auto) [place] # (Auto) Eos # (Auto) Baso # (Auto) Abs Immat Gran (auto) Absolute Neuts (auto) Absolute Nucleated RBC Nucleated RBC % (auto) Anion Gap Estim Creat Clear Calc Estimated GFR POC Glucose 143 H 224 H Random Glucose Calcium Magnesium Microbiology Microbiology Results: Microbiology 02/13/25 17:47 Blood Culture - Preliminary Blood - Venous No growth after 48 hours. 02/13/25 17:47 Blood Culture - Preliminary Blood - Venous No growth after 48 hours. Assessment and Plan (1) Hypertensive urgency: Status: Acute (2) Essential hypertension: Status: Acute (3) Heart failure with preserved ejection fraction: Status: Acute (4) Volume overload: Status: Acute (5) Elevated troponin: Status: Acute (6) Hemorrhoids that prolapse with straining, but retract spontaneously: Status: Acute (7) Rectal prolapse: Status: Acute (8) ESRD (end stage renal disease) on dialysis: Status: Chronic (9) Acute hyperkalemia: Status: Acute (10) Acute respiratory failure with hypoxia: Status: Acute (11) Shortness of breath: Status: Acute (12) Pneumonia: Status: Acute Plan 69-year-old [place]-speaking female with a past medical history significant for pulmonary hypertension, asthma/COPD overlap, hypertension, diabetes, ESRD TTS, HFpEF, hypertrophic cardiomyopathy, prolapsed rectum and recent admission at [facility] for hypertensive emergency with flash pulmonary edema placed on BiPAP with dialysis, who presented to the ED due to hypoxia and dyspnea. Acute hypoxic respiratory failure secondary to pneumonia with mucus plugging on CT Cardiorenal syndrome type 4 - likely multifactorial: fluid overloaded from ESRD and possible pneumonia - pulmonology consulted, feels CT more indicative of pulmonary edema rather than pneumonia; no need for inpatient bronch - pulmonology question need for antibiotics, but will continue ceftriaxone and doxycycline given productive cough and SOB x2 weeks - follow up with pulmonology in [address] of chest and need for possible outpatient bronchoscopy - no longer on supplemental O2 post-dialysis Type 2 demand NSTEMI ECG unremarkable Troponin flat - persistent elevation likely 2/2 ESRD - monitor on tele ESRD on HD TTS - follows with [facility] - received dialysis on Sunday rectal prolapse/proctitis - ongoing x2 years - multiple previous surgical attempts has been postponed due a variety of different ongoing medical issues - general surgery consulted, recommend high-fiber diet and stool softeners to avoid straining with bowel movements - outpatient surgical repair once pt medically stable leg pain - likely diabetic neuropathy - started on gabapentin 100 mg t.i.d. with improvement, can likely continue at asthma/COPD overlap - duonebs PRN HTN/hypertensive urgency - continue home meds DM - SSI HFpEF, no acute exacerbation - BNP likely elevated due to ESRD - no response to 100mg IV lasix [employer] - VTE: Heparin 5000 t.i.d. SQ - CODE STATUS: Full code - DIET: Renal Total time managing care of this patient today: 35 minutes. Quality Stroke Does the patient have a stroke diagnosis?: No VTE Prior VTE?: No VTE Risk Level:: Medical - moderate - high VTE Device Contraindication: Treatment Not Indicated VTE Drug Contraindication: N/A - Med Ordered
[2025-02-16 20:50] LABS: Glucose, Whole Blood 150 mg/dL (60-115)
--- NOTE | 2025-02-16 21:41 | PM.CNNEP ---
History of Present Illness Reason for Consult Consult date: 02/16/25 Chief Complaint Chief complaint: hypoxia History of Present Illness Narrative: ESRD TTS PT adm with hypoxia Complicated ESRD with multipe chronic med porbs as noted below s/p HD Sat and overall doing better In summary 69-year-old Croatian-speaking female with a past medical history significant for pulmonary hypertension, asthma/COPD overlap, hypertension, diabetes, ESRD TTS, HFpEF, hypertrophic cardiomyopathy, prolapsed rectum and recent admission at [facility] for hypertensive emergency with flash pulmonary edema placed on BiPAP with dialysis, who presented to the ED due to hypoxia and dyspnea. Meds as noted Review of Systems Review of Systems + SOB Yes all other systems are reviewed and are negative Constitutional: Denies body ache(s), Denies chills, Denies daytime sleepiness, Denies excessive sweating, Denies fatigue, Denies fever(s), Denies headache(s), Denies lethargy, Denies malaise, Denies night sweats, Denies snoring and Denies weight loss Eyes: Denies blurry vision, Denies change in vision and Denies itchy eyes Denies headache(s), Denies nasal congestion, Denies post nasal drip, Denies sinus pain, Denies sinus pressure, Reports sore throat and Denies other ( Thrush) Cardiovascular: Denies chest pain, Denies rapid heart rate, Reports pedal edema, Denies leg edema, Denies lightheadedness, Reports dyspnea, Reports dyspnea on exertion, Reports orthopnea and Denies paroxysmal nocturnal dyspnea Respiratory: Reports chest congestion, Denies cough, Denies hemoptysis, Denies excessive phlegm production, Reports dyspnea, Reports dyspnea on exertion, Denies snoring and Denies wheezing Gastrointestinal: Denies abdominal pain, Denies heartburn, Denies nausea and Denies vomiting Musculoskeletal: Denies myalgias, Denies arthralgias and Denies joint swelling Skin/Breast: Denies rash Denies confusion, Denies headache(s), Denies memory loss and Denies seizure-like activity Psychiatric: Denies abnormal sleep pattern, Denies anxiety, Denies confusion and Denies memory loss Endocrine: Denies excessive sweating, Denies fatigue and Denies heat intolerance Hematologic/Lymphatic: Denies easy bleeding and Denies easy bruising Allergic/Immunologic: Denies itchy eyes, Denies seasonal rhinorrhea and Denies wheezing PMFSH Past Medical History Medical History (Updated 02/16/25 @ 17:16 by Davis Huggins MD) Chronic renal failure Essential hypertension ESRD (end stage renal disease) on dialysis Diabetes mellitus Hemorrhoids that prolapse with straining, but retract spontaneously Hemorrhoids with complication ESRD on dialysis Delirium Sepsis Tachycardia Leukocytosis Fever End stage chronic kidney disease Congestive heart failure with left ventricular dysfunction ESRD (end stage renal disease) Hypertension Pulmonary congestion COVID-19 virus infection Asthma with COPD with exacerbation COVID ESRD (end stage renal disease) Hypertrophic cardiomyopathy Acute exacerbation of chronic obstructive pulmonary disease (COPD) Heart failure with preserved ejection fraction Constipation End stage renal disease on dialysis Ascites Anasarca Ischemic colitis Acute GI bleeding Anemia Dialysis patient, noncompliant Anemia in chronic kidney disease Opioid withdrawal Essential hypertension (~02/16/25) Family History Family History Other Hypertension Surgical History Surgical History No pertinent past surgical history Social History Social History Household Members: None Housing: House Do you presently have visiting nurse or other home services: Yes Alcohol intake: never Comment: pt in dialysis at this time. Patient Tobacco Use Status: Current everyday Tobacco user Tobacco use type: Cigarette Cigarette Packs Per Day: 2 Cigarettes Per Day: 1 Years Smoked: 50 +/- Smoked in Last 30 Days: Yes e-Cigarette/Vaping Use: Never Used Patient Interested in Nicotine Replacement: Yes Second Hand Smoke Exposure: No Use of substances other than those prescribed or required for medical reasons: No Substance Use Type: Marijuana Currently Displaying Signs/Symptoms of Drug Intoxication Withdrawal: No Have you been hit, kicked, punched, or otherwise hurt by someone within the past year? If so, by whom?: No Do you feel safe in your current relationship?: No Current Relationship Is there a partner from a previous relationship who is making you feel unsafe now?: No Are you made to feel afraid or neglected: No Advance Directives: Yes Advance Directives on File: Yes Advance Directives Date on File: 04/19/23 Recently lost weight without trying: Yes How much weight loss: 2-13 pounds Eating poorly because of decreased appetite: No Nutrition screen score: 3 Nutrition Risks: No Nutritional Risk Patient : No : No Poor oral hygiene: No service: No Current occupational status: disabled Meds Allergies Allergy/AdvReac Type Severity Reaction Status Date / Time No Known Allergies Allergy Verified 02/13/25 15:09 Active Medications: Current Medications Acetaminophen (Acetaminophen 325 Mg Tablet) 650 mg PO Q6H PRN PRN Reason: Pain, Mild 1-3,fever,headache Last Admin: 02/16/25 01:53 Dose: 650 mg Albuterol Sulfate (Albuterol Sulfate (0.083%) 2.5 Mg/3 Ml Vial.Neb) 2.5 mg INHALE Q6H PRN PRN Reason: Shortness of Breath Albuterol Sulfate (Albuterol Sulfate 90 Mcg 8 Gm Inhaler) 2 puff INHALE Q4H PRN PRN Reason: Wheezing Albuterol/Ipratropium (Albuterol/Iprat 2.5/0.5mg 3 Ml Ampul.Neb) 3 ml INHALE RQ4H WHILE AWAKE [facility] Last Admin: 02/16/25 20:42 Dose: 3 ml Amlodipine Besylate (Amlodipine Besylate 10 Mg Tablet) 10 mg PO DAILY [facility]; Protocol Last Admin: 02/16/25 08:59 Dose: 10 mg Aspirin (Aspirin Enteric Coated 81 Mg Tablet.Dr) 81 mg PO DAILY [facility] Last Admin: 02/16/25 08:59 Dose: 81 mg Buprenorphine/Naloxone (Buprenorphine/Naloxone 12/3 Mg Film) 1 film SUBLINGUAL DAILY [facility] Last Admin: 02/16/25 09:00 Dose: 1 film Calcium Acetate (Calcium Acetate 667 Mg Capsule) 667 mg PO TIDWM [facility] Last Admin: 02/16/25 16:43 Dose: 667 mg Calcium Carbonate (Calcium Carbonate 750 Mg Tab.Chew) 750 mg PO Q4H PRN PRN Reason: Heartburn Carvedilol (Carvedilol 25 Mg Tablet) 25 mg PO BID PHAN; Protocol Last Admin: 02/16/25 21:16 Dose: 25 mg Ceftriaxone Sodium (Ceftriaxone Sodium 1 Gm Vial) 1 gm IVPUSH Q24H PHAN Last Admin: 02/16/25 13:42 Dose: 1 gm Clonidine (Clonidine 0.3 Mg Patch.Tdwk) 0.3 mg TRANSDERMA WE PHAN; Protocol Dextrose (Dextrose 50 % 25 Gm/50 Ml Syringe) 25 gm IVPUSH Q15M PRN; Protocol PRN Reason: per Hypoglycemia Standing Ord. Docusate Sodium (Docusate Sodium 100 Mg Capsule) 100 mg PO BID [facility] Last Admin: 02/16/25 21:16 Dose: 100 mg Gabapentin (Gabapentin 100 Mg Capsule) 100 mg PO TID [facility] Last Admin: 02/16/25 21:16 Dose: 100 mg Glucose (Glucose Gel 15 Gm Gel..Gram.) 15 gm PO Q15M PRN; Protocol PRN Reason: per Hypoglycemia Standing Ord. Guaifenesin/Codeine Phosphate (Guaifen/Codeine Sf 200/20/10ml 10 Ml Liquid) 5 ml PO Q4H PRN PRN Reason: Cough Heparin Sodium (Porcine) (Heparin Sodium,Porcine 5,000 Unit/Ml Vial) 5,000 unit SUBCUT Q12H [facility] Last Admin: 02/16/25 12:32 Dose: 5,000 unit Hydralazine HCl (Hydralazine Hcl 50 Mg Tablet) 100 mg PO TID [facility]; Protocol Last Admin: 02/16/25 21:15 Dose: 100 mg Doxycycline Hyclate 100 mg/ (Sodium Chloride) 250 mls @ 166.67 mls/hr IV Q12H [facility] Last Infusion: 02/16/25 15:21 Dose: Infused Insulin Human Lispro (Insulin Lispro 100 Unit/Ml 3 Ml Vial) 0 unit SUBCUT QIDACHS [facility]; Protocol Last Admin: 02/16/25 21:19 Dose: Not Given Isosorbide Dinitrate (Isosorbide Dinitrate 10 Mg Tablet) 30 mg PO TID [facility]; Protocol Last Admin: 02/16/25 21:16 Dose: 30 mg Lactulose (Lactulose 20 Gm/30 Ml Solution) 10 gm PO DAILY PRN PRN Reason: Constipation Losartan Potassium (Losartan Potassium 50 Mg Tablet) 100 mg PO DAILY [facility]; Protocol Last Admin: 02/16/25 08:59 Dose: 100 mg Magnesium Hydroxide (Milk Of Magnesia 30 Ml Oral.Susp) 30 ml PO DAILY PRN PRN Reason: Constipation Melatonin (Melatonin 3 Mg Tablet) 6 mg PO BEDTIME PRN PRN Reason: Insomnia Mirtazapine (Mirtazapine 15 Mg Tablet) 30 mg PO BEDTIME [facility] Last Admin: 02/16/25 21:16 Dose: 30 mg Multivitamins/Vitamin C (Multivitamin Tablet) 1 tab PO DAILY [facility] Last Admin: 02/16/25 08:59 Dose: 1 tab Nicotine (Nicotine 14 Mg Patch.Td24) 14 mg TRANSDERMA DAILY [facility] Last Admin: 02/16/25 09:00 Dose: 14 mg Omeprazole (Omeprazole 20 Mg Capsule.Dr) 20 mg PO DAILY@0630 [facility] Last Admin: 02/16/25 05:42 Dose: 20 mg Ondansetron HCl (Ondansetron Hcl 4 Mg/2 Ml Vial) 4 mg IVPUSH Q8H PRN PRN Reason: Nausea and Vomiting Last Admin: 02/14/25 12:50 Dose: 4 mg Oxycodone HCl (Oxycodone Hcl Immed Release 5 Mg Tablet) 5 mg PO Q6H PRN PRN Reason: Pain, Severe (Pain Scale 7-10) Last Admin: 02/15/25 20:16 Dose: 5 mg Polyethylene Glycol (Polyethylene Glycol 3350 17 Gm Powd.Pack) 17 gm PO DAILY [facility] Last Admin: 02/16/25 08:57 Dose: 17 gm Sodium Chloride (0.9 % Sodium Chloride Flush 3 Ml Syringe) [facility] Last Admin: 02/16/25 21:16 Dose: 3 ml Sodium Zirconium Cyclosilicate (Sodium Zirconium Cyclosilicate 10 Gm Powd.Pack) 10 gm PO MOWEFR@0900 [facility] Last Admin: 02/16/25 08:57 Dose: 10 gm Sodium Zirconium Cyclosilicate (Sodium Zirconium Cyclosilicate 10 Gm Powd.Pack) 10 gm PO ONCE STA Stop: 02/16/25 21:39 Tramadol HCl (Tramadol Hcl 50 Mg Tablet) 50 mg PO Q6H PRN PRN Reason: Pain, Moderate(Pain Scale 4-6) Last Admin: 02/15/25 13:32 Dose: 50 mg Trazodone HCl (Trazodone Hcl 100 Mg Tablet) 100 mg PO BEDTIME PRN PRN Reason: Insomnia Home Medications ?Medication ?Instructions ?Recorded ?Confirmed ?Last Taken ?Type melatonin 5 mg tablet 5 mg PO BEDTIME Sleep 04/15/21 02/14/25 02/13/25 History pantoprazole 40 mg tablet,delayed 40 mg PO DAILY@0630 04/15/21 02/14/25 02/13/25 History release aspirin 81 mg tablet,delayed 1 tab PO DAILY 10/11/21 02/14/25 02/13/25 History release albuterol sulfate 90 mcg/actuation 2 puff inhalation Q4H PRN wheezing 01/31/22 02/14/25 Unknown History aerosol inhaler (Ventolin HFA) albuterol sulfate 2.5 mg/3 mL 1 amp inhalation Q6H PRN Shortness 05/08/22 02/14/25 Unknown History (0.083 %) solution for nebulization Of Breath isosorbide dinitrate 30 mg tablet 30 mg PO TID 07/10/22 02/14/25 02/13/25 History calcium acetate(phosphat bind) 667 667 mg PO TIDWM 03/13/23 02/14/25 02/13/25 History mg capsule lactulose 10 gram/15 mL oral 10 g PO DAILY PRN constipation 03/13/23 02/14/25 07/21/24 History solution carvedilol 25 mg tablet 25 mg PO BID 01/28/24 02/14/25 02/13/25 History amlodipine 10 mg tablet 10 mg PO DAILY 04/19/24 02/14/25 02/13/25 History buprenorphine 12 mg-naloxone 3 mg 1 film sublingual DAILY 04/19/24 02/14/25 02/13/25 History sublingual film glucose 4 gram chewable tablet 16 g PO Q15M PRN hypoglycemia 04/19/24 02/14/25 Unknown History sodium zirconium cyclosilicate 10 10 g PO MOWEFR@0900 04/19/24 02/14/25 02/13/25 History gram oral powder packet (Lokelma) vitamin B comp no.3-folic acid 1 1 tab PO DAILY 04/19/24 02/14/25 02/13/25 History mg-vit C 60 mg-biotin 300 mcg tablet ([facility]) diclofenac sodium 1 % topical gel 2 g topical BID PRN Pain 07/21/24 02/14/25 07/21/24 History ondansetron HCl 4 mg tablet 4 mg PO Q12H PRN nausea/vomiting 07/21/24 02/14/25 Unknown History trazodone 100 mg tablet 100 mg PO BEDTIME PRN insomnia 07/21/24 02/14/25 Unknown History acetaminophen 500 mg tablet 500 mg PO Q8H PRN pain 07/22/24 02/14/25 Unknown History docusate sodium 100 mg capsule 100 mg PO BID Constipation 07/22/24 02/14/25 02/13/25 History (Colace) clonidine 0.3 mg/24 hr weekly 1 patch topical WE 02/13/25 02/14/25 02/13/25 History transdermal patch hydralazine 100 mg tablet 100 mg PO TID 02/13/25 02/14/25 02/13/25 History losartan 100 mg tablet 100 mg PO DAILY 02/13/25 02/14/25 02/13/25 History mirtazapine 30 mg tablet 30 mg PO BEDTIME 02/13/25 02/14/25 02/13/25 History nicotine 14 mg/24 hr daily 1 patch topical DAILY 02/13/25 02/14/25 02/13/25 History transdermal patch polyethylene glycol 3350 17 17 g PO DAILY 02/13/25 02/14/25 02/13/25 History gram/dose oral powder Physical Exam Vital Signs: Last Vital Signs Temp 98.9 F 02/16/25 19:16 Pulse 80 02/16/25 20:42 Resp 18 02/16/25 20:42 BP 153/67 H 02/16/25 19:16 Pulse Ox 92 02/16/25 19:16 O2 Del Method Room Air 02/16/25 19:16 O2 Flow Rate 2 02/16/25 03:30 Oxygen Flow Rate 4 02/13/25 15:02 BMI result Body Mass Index 26.2 Const General: comfortable, no acute distress, alert and awake; No confusion Orientation/consciousness: patient oriented x3 and No confusion Eyes Sclerae: sclerae normal EOM: EOMs intact bilaterally Neck Neck: Yes no lymphadenopathy, Yes trachea midline and Yes supple Resp Effort & Inspection: normal respiratory effort and no respiratory distress Auscultation: crackles (Mild bilateral) Cardio Rate: regular rate Rhythm: regular rhythm Heart sounds: no gallops, no murmurs and no rubs GI Other: Nurse, caridad served as my in file operator Palpation (GI): Soft to palpation and Other GI palpation findings present ( Nontender) Auscultation: normal bowel sounds Rectal Exam - Female: decreased sphincter tone and Rectal prolapse (reduced at this point, tissue viable, well perfused) Neuro General: patient oriented x3 and No confusion Extrem General: No clubbing, No cyanosis and Yes edema (1+ bilateral) Results Lab Results 02/16/25 08:17 02/16/25 08:17 Lab results: Chemistry 02/14/25 02/15/25 02/16/25 07:01 06: 08:17 Sodium 136 135 135 Potassium 4.1 4.2 5.5 H D Carbon Dioxide 28 27 26 BUN 49 H 34 H 55 H Creatinine 6.27 H* 4.34 H* 6.17 H* Calcium 8.2 L D 8.8 D 9.1 Hematology 02/14/25 02/15/25 02/16/25 07:01 06: 08:17 WBC 5.8 5.5 5.7 Hgb 8.1 L 8.8 L 9.1 L Plt Count 205 217 223 Assessment and Plan (1) Hypertensive urgency: Status: Acute (2) Essential hypertension: Status: Acute (3) Heart failure with preserved ejection fraction: Status: Acute (4) Volume overload: Qualifiers: Hypervolemia type: other Qualified Code(s): E87.79 - Other fluid overload Status: Acute (5) Elevated troponin: Status: Acute (6) Hemorrhoids that prolapse with straining, but retract spontaneously: Status: Acute (7) Rectal prolapse: Status: Acute (8) ESRD (end stage renal disease) on dialysis: Status: Chronic (9) Acute hyperkalemia: Status: Acute (10) Acute respiratory failure with hypoxia: Status: Acute (11) Shortness of breath: Status: Acute (12) Pneumonia: Status: Acute Plan 69-year-old Croatian-speaking female with a past medical history significant for pulmonary hypertension, asthma/COPD overlap, hypertension, diabetes, ESRD TTS, HFpEF, hypertrophic cardiomyopathy, prolapsed rectum and recent admission at [facility] for hypertensive emergency with flash pulmonary edema placed on BiPAP with dialysis, who presented to the ED due to hypoxia and dyspnea. ESRD: hd TTS HyperK: lokelma as ordered SOB: improved REC: cnt hD TTS, low K diet and Lokelma prn for K > 5.2 Procedures Date of Service Date of Service: 02/16/25
[2025-02-17] VITALS (13 sets, daily range): BP systolic 133–171; BP diastolic 56–76; PULSE 71–82; RESP 14–18; TEMP 36–36.9; O2SAT 85–100
[2025-02-17] MEDS: Albuterol Sulfate (0.083%) 2.5 MG/3 ML VIAL.NEB INHALE ×2 (03:02→13:19)
[2025-02-17 03:08] LABS: Glucose, Whole Blood 161 mg/dL (60-115)
--- NOTE | 2025-02-17 07:30 | HE.PHANOTE ---
IV TO PO CONVERSION DOXY 100MG BID SWITCH FROM IV TO PO PER POLICY. NEXT DOSE 1200 PO 02/17
[2025-02-17] MEDS: Albuterol/Iprat 2.5/0.5MG 3 ML AMPUL.NEB INHALE ×2 (07:49→19:51)
[2025-02-17 07:57] LABS: Glucose, Whole Blood 161 mg/dL (60-115)
[2025-02-17] MEDS: Buprenorphine/Naloxone 12/3 mg FILM 1 FILM SUBLINGUAL (08:08)
[2025-02-17] MEDS: Nicotine 14 MG PATCH.TD24 TRANSDERMA (08:08)
[2025-02-17] MEDS: 0.9 % Sodium Chloride Flush 3 ML SYRINGE IVFLUSH ×2 (12:27→21:57)
[2025-02-17] MEDS: Aspirin Enteric Coated 81 MG TABLET.DR PO (12:29)
[2025-02-17 12:35] LABS: Glucose, Whole Blood 135 mg/dL (60-115)
--- NOTE | 2025-02-17 16:09 | HO.PM.IMPN ---
Subjective Subjective Date of Service: 02/17/25 Interval History: Reports feeling fatigued today. Reports she is also having difficulty breathing overall was compared to yesterday. Does not feel well - no fevers no chills no rigors. No chest pain retrosternal chest pressure, diaphoresis. Review of Systems Review of Systems: Yes all other systems are reviewed and are negative Physical Exam Exam: Exam: General: A&O x3, oriented to time place person and situation, comfortable, no pain Cardiac: S1, S2 auscultated with no S3/4, no MRG. Well perfused. Respiratory: Decreased inspiratory and expiratory breath sounds bilaterally, at the bases. Bibasilar crepitations auscultated, with end expiratory wheezing in the mid and upper zones. No tripoding, peripheral or central cyanosis, no intercostal retractions. GI/ : No abdominal pain on palpation, no masses or distentions. MSK: Normal ambulation without pain at bony prominences or musculature Neurological: Normal neurological examination on overview, without obvious CN II-XII abnormalities. Vital Signs: Vital Signs: Last Vital Signs Temp 97.3 F 02/17/25 15:40 Pulse 77 02/17/25 15:40 Resp 18 02/17/25 15:40 BP 140/56 H 02/17/25 15:40 Pulse Ox 93 02/17/25 15:40 O2 Del Method CPAP 02/17/25 15:40 O2 Flow Rate 1 02/17/25 12:26 Oxygen Flow Rate 4 02/13/25 15:02 BMI result Body Mass Index 26.2 Objective Data Active Medications Acetaminophen (Acetaminophen 325 Mg Tablet) 650 mg PO Q6H PRN PRN Reason: Pain, Mild 1-3,fever,headache Last Admin: 02/17/25 14:45 Dose: 650 mg Documented By: ROBY Albuterol Sulfate (Albuterol Sulfate (0.083%) 2.5 Mg/3 Ml Vial.Neb) 2.5 mg INHALE Q6H PRN PRN Reason: Shortness of Breath Last Admin: 02/17/25 13:19 Dose: 2.5 mg Documented By: BHAVANA Albuterol Sulfate (Albuterol Sulfate 90 Mcg 8 Gm Inhaler) 2 puff INHALE Q4H PRN PRN Reason: Wheezing Albuterol/Ipratropium (Albuterol/Iprat 2.5/0.5mg 3 Ml Ampul.Neb) 3 ml INHALE RQ4H WHILE AWAKE [facility] Last Admin: 02/17/25 15:08 Dose: Not Given Documented By: BHAVANA Non-Admin Reason: PRN albluterol given Amlodipine Besylate (Amlodipine Besylate 10 Mg Tablet) 10 mg PO DAILY [facility]; Protocol Last Admin: 02/17/25 12:29 Dose: 10 mg Documented By: ROBY Aspirin (Aspirin Enteric Coated 81 Mg Tablet.Dr) 81 mg PO DAILY [facility] Last Admin: 02/17/25 12:29 Dose: 81 mg Documented By: ROBY Buprenorphine/Naloxone (Buprenorphine/Naloxone 12/3 Mg Film) 1 film SUBLINGUAL DAILY [facility] Last Admin: 02/17/25 08:08 Dose: 1 film Documented By: ROBY Calcium Acetate (Calcium Acetate 667 Mg Capsule) 667 mg PO TIDWM [facility] Last Admin: 02/17/25 12:37 Dose: Not Given Documented By: ROBY Non-Admin Reason: schedule conflict Calcium Carbonate (Calcium Carbonate 750 Mg Tab.Chew) 750 mg PO Q4H PRN PRN Reason: Heartburn Carvedilol (Carvedilol 25 Mg Tablet) 25 mg PO BID [facility]; Protocol Last Admin: 02/17/25 12:28 Dose: 25 mg Documented By: ROBY Ceftriaxone Sodium (Ceftriaxone Sodium 1 Gm Vial) 1 gm IVPUSH Q24H [facility] Last Admin: 02/17/25 14:44 Dose: 1 gm Documented By: ROBY Clonidine (Clonidine 0.3 Mg Patch.Tdwk) 0.3 mg TRANSDERMA WE [facility]; Protocol Dextrose (Dextrose 50 % 25 Gm/50 Ml Syringe) 25 gm IVPUSH Q15M PRN; Protocol PRN Reason: per Hypoglycemia Standing Ord. Docusate Sodium (Docusate Sodium 100 Mg Capsule) 100 mg PO BID [facility] Last Admin: 02/17/25 12:29 Dose: 100 mg Documented By: ROBY Doxycycline Monohydrate (Doxycycline Monohydrate 100 Mg Capsule) 100 mg PO Q12H [facility] Last Admin: 02/17/25 12:28 Dose: 100 mg Documented By: ROBY Gabapentin (Gabapentin 100 Mg Capsule) 100 mg PO TID [facility] Last Admin: 02/17/25 12:28 Dose: 100 mg Documented By: ROBY Glucose (Glucose Gel 15 Gm Gel..Gram.) 15 gm PO Q15M PRN; Protocol PRN Reason: per Hypoglycemia Standing Ord. Guaifenesin/Codeine Phosphate (Guaifen/Codeine Sf 200/20/10ml 10 Ml Liquid) 5 ml PO Q4H PRN PRN Reason: Cough Heparin Sodium (Porcine) (Heparin Sodium,Porcine 5,000 Unit/Ml Vial) 5,000 unit SUBCUT Q12H [facility] Last Admin: 02/17/25 12:28 Dose: 5,000 unit Documented By: ROBY Hydralazine HCl (Hydralazine Hcl 50 Mg Tablet) 100 mg PO TID [facility]; Protocol Last Admin: 02/17/25 12:29 Dose: 100 mg Documented By: ROBY Insulin Human Lispro (Insulin Lispro 100 Unit/Ml 3 Ml Vial) 0 unit SUBCUT QIDACHS [facility]; Protocol Last Admin: 02/17/25 12:21 Dose: Not Given Documented By: ROBY Non-Admin Reason: No Insulin Coverage Isosorbide Dinitrate (Isosorbide Dinitrate 10 Mg Tablet) 30 mg PO TID [facility]; Protocol Last Admin: 02/17/25 12:28 Dose: 30 mg Documented By: ROBY Lactulose (Lactulose 20 Gm/30 Ml Solution) 10 gm PO DAILY PRN PRN Reason: Constipation Losartan Potassium (Losartan Potassium 50 Mg Tablet) 100 mg PO DAILY [facility]; Protocol Last Admin: 02/17/25 12:29 Dose: 100 mg Documented By: ROBY Magnesium Hydroxide (Milk Of Magnesia 30 Ml Oral.Susp) 30 ml PO DAILY PRN PRN Reason: Constipation Melatonin (Melatonin 3 Mg Tablet) 6 mg PO BEDTIME PRN PRN Reason: Insomnia Mirtazapine (Mirtazapine 15 Mg Tablet) 30 mg PO BEDTIME [facility] Last Admin: 02/16/25 21:16 Dose: 30 mg Documented By: GENE Multivitamins/Vitamin C (Multivitamin Tablet) 1 tab PO DAILY [facility] Last Admin: 02/17/25 12:29 Dose: 1 tab Documented By: ROBY Nicotine (Nicotine 14 Mg Patch.Td24) 14 mg TRANSDERMA DAILY [facility] Last Admin: 02/17/25 08:08 Dose: 14 mg Documented By: ROBY Omeprazole (Omeprazole 20 Mg Capsule.Dr) 20 mg PO DAILY@0630 [facility] Last Admin: 02/17/25 06:00 Dose: 20 mg Documented By: GENE Ondansetron HCl (Ondansetron Hcl 4 Mg/2 Ml Vial) 4 mg IVPUSH Q8H PRN PRN Reason: Nausea and Vomiting Last Admin: 02/17/25 03:12 Dose: 4 mg Documented By: GENE Oxycodone HCl (Oxycodone Hcl Immed Release 5 Mg Tablet) 5 mg PO Q6H PRN PRN Reason: Pain, Severe (Pain Scale 7-10) Last Admin: 02/15/25 20:16 Dose: 5 mg Documented By: GENE Polyethylene Glycol (Polyethylene Glycol 3350 17 Gm Powd.Pack) 17 gm PO DAILY [facility] Last Admin: 02/17/25 12:29 Dose: 17 gm Documented By: ROBY Sodium Chloride (0.9 % Sodium Chloride Flush 3 Ml Syringe) 3 ml IVFLUSH QSHIFT [facility] Last Admin: 02/17/25 16:04 Dose: Not Given Documented By: ROBY Non-Admin Reason: Previously Administered Sodium Zirconium Cyclosilicate (Sodium Zirconium Cyclosilicate 10 Gm Powd.Pack) 10 gm PO MOWEFR@0900 [facility] Last Admin: 02/16/25 08:57 Dose: 10 gm Documented By: MALDONLaron Tramadol HCl (Tramadol Hcl 50 Mg Tablet) 50 mg PO Q6H PRN PRN Reason: Pain, Moderate(Pain Scale 4-6) Last Admin: 02/17/25 01:23 Dose: 50 mg Documented By: GENE Trazodone HCl (Trazodone Hcl 100 Mg Tablet) 100 mg PO BEDTIME PRN PRN Reason: Insomnia Last Admin: 02/17/25 01:23 Dose: 100 mg Documented By: GENE Labs 02/16/25 08:17 02/16/25 08:17 Labs: Laboratory Results - last 24 hr 02/16/25 02/17/25 02/17/25 20:44 03:02 07:10 POC Glucose 150 H 161 H 161 H 02/17/25 12:17 POC Glucose 135 H Assessment and Plan (1) Hypertensive urgency: Status: Acute (2) Essential hypertension: Status: Acute (3) Heart failure with preserved ejection fraction: Status: Acute (4) Elevated troponin: Status: Acute (5) Volume overload: Status: Acute (6) Hyponatremia: Status: Acute (7) Rectal prolapse: Status: Acute (8) ESRD (end stage renal disease) on dialysis: Status: Chronic (9) CKD (chronic kidney disease): Status: Acute (10) Dialysis patient, noncompliant: Status: Chronic (11) Acute hyperkalemia: Status: Acute (12) Anemia: Status: Chronic (13) Leukocytosis: Status: Acute (14) Shortness of breath: Status: Acute (15) Acute respiratory failure with hypoxia: Status: Acute Plan 69-year-old Ukrainian-speaking female with a past medical history significant for pulmonary hypertension, asthma/COPD overlap, hypertension, diabetes, ESRD TTS, HFpEF, hypertrophic cardiomyopathy, prolapsed rectum and recent admission at [facility] for hypertensive emergency with flash pulmonary edema placed on BiPAP with dialysis, who presented to the ED due to hypoxia and dyspnea, admitted for multifactorial acute hypoxic respiratory failure. Multifactorial acute hypoxic respiratory failure - Hospital-acquired pneumonia with mucus plugging - Cardiorenal syndrome type 4 in the setting of ESRD HD TTS - Acute CHFpEF exacerbation in the setting of flash pulmonary edema 2/2 hypertensive emergency likely multifactorial: fluid overloaded from ESRD and possible pneumonia pulmonology consulted, feels CT more indicative of pulmonary edema rather than pneumonia; no need for inpatient bronch pulmonology question need for antibiotics, but will continue ceftriaxone and doxycycline given productive cough and SOB x2 weeks Patient has also had multiple episodes of hypertensive urgency/emergency with subsequent pulmonary edema and respiratory distress. follow up with pulmonology in [address] of chest and need for possible outpatient bronchoscopy no longer on supplemental O2 post-dialysis Unfortunately, the patient is aneuric, and diuresis with loop diuretics has been ineffective PLAN - cardiac telemetry - BiPAP nightly - monitor BMP and volume status - caution with patient during hypovolemic states; given tendency for hypotension and tachycardia leading to flash pulmonary edema - nephrology following, continue HD TTS - address HTN for goal blood pressure 120-140 systolic Type 2 demand NSTEMI In the setting of acute CHF exacerbation and hypertensive emergency ECG unremarkable Troponin flat - persistent elevation likely 2/2 ESRD - monitor on tele ESRD on HD TTS - follows with [facility] - received dialysis TTS Rectal prolapse - ongoing x2 years - multiple previous surgical attempts has been postponed due a variety of different ongoing medical issues - general surgery consulted, recommend high-fiber diet and stool softeners to avoid straining with bowel movements - outpatient surgical repair once pt medically stable T2 DM Diabetic neuropathy - likely diabetic neuropathy - started on gabapentin 100 mg t.i.d. with improvement, can likely continue at COPD - duonebs PRN QUALITY METRICS - VTE: Heparin 5000 t.i.d. SQ - CODE STATUS: Full code - DIET: Renal Total time managing care of this patient today: 45 minutes. Quality Stroke Does the patient have a stroke diagnosis?: No VTE Prior VTE?: No VTE Risk Level:: Medical - moderate - high VTE Device Contraindication: Treatment Not Indicated VTE Drug Contraindication: N/A - Med Ordered
[2025-02-17 16:19] LABS: Glucose, Whole Blood 210 mg/dL (60-115)
[2025-02-17 20:24] LABS: Glucose, Whole Blood 148 mg/dL (60-115)
[2025-02-18] VITALS (11 sets, daily range): BP systolic 132–184; BP diastolic 50–86; PULSE 68–88; RESP 16–18; TEMP 36.2–37.4; O2SAT 92–97
[2025-02-18] MEDS: Albuterol/Iprat 2.5/0.5MG 3 ML AMPUL.NEB INHALE ×3 (08:02→20:05)
[2025-02-18 08:11] LABS: Glucose, Whole Blood 153 mg/dL (60-115)
[2025-02-18] MEDS: Aspirin Enteric Coated 81 MG TABLET.DR PO (08:40)
[2025-02-18] MEDS: Nicotine 14 MG PATCH.TD24 TRANSDERMA (08:41)
[2025-02-18] MEDS: Buprenorphine/Naloxone 12/3 mg FILM 1 FILM SUBLINGUAL (08:41)
[2025-02-18 09:02] LABS: MANUAL DIFF FLAG NO
[2025-02-18 09:12] LABS: Hematocrit 31.6 % (37.0-47.0); Hemoglobin 10.2 g/dl (12.0-16.0); Imm Gran Abs Auto 0.10 X10*3/uL (0.00-0.03); Imm Gran Pct Auto 1.2 % (0.0-0.4); Lymphocytes Absolute Auto 1.2 X10*3/uL (1.2-4.9); Mean Corpuscular HGB Conc 32.3 g/dl (31.0-35.0); Mean Corpuscular Hemoglobin 31.8 pg (27.0-33.0); Mean Corpuscular Volume 98.4 fL (80.0-98.0); NRBC Abs Auto 0.000 X10*3/uL (0.0-0.012); NRBC Pct Auto 0.0 /100WBC (0.0-0.2); Platelet Count 262 X10*3/uL (160-400); Red Blood Count 3.21 X10*6/uL (4.20-5.50); White Blood Count 8.3 X10*3/uL (4.8-10.8)
[2025-02-18 09:27] LABS: Anion Gap 22 (12-20); Blood Urea Nitrogen 41 mg/dL (9-16); Calcium 9.5 mg/dL (8.4-10.2); Carbon Dioxide 26 mmol/L (22-29); Chloride 93 mmol/L (96-108); Creatinine Clr Calc Pharmacy 9.4; Estimated Glomerular Filt Rate 9; Potassium 5.7 mmol/L (3.3-5.1); Sodium 135 mmol/L (135-145)
--- NOTE | 2025-02-18 09:34 | PC.NURSE ---
Addendum entered by Saeed Ribera RN 02/18/25 10:39: informed pt had large amt of vomiting and feels dizzy. BP elevated. Original Note: crotch piece baster at bedside for assessment and med pass. informed of critical lab results
[2025-02-18 09:55] LABS: NT Pro B Type Natriuretic Pept 59938.6 pg/mL (<300)
[2025-02-18 11:27] LABS: Glucose, Whole Blood 81 mg/dL (60-115)
--- NOTE | 2025-02-18 14:16 | MHC.CM.PN ---
per rounds, pt to have bronchoscopy today, home in 2 days. She has [facility] in place, CM to keep them up to date.
--- NOTE | 2025-02-18 17:36 | HO.PM.IMPN ---
Subjective Subjective Date of Service: 02/18/25 Interval History: Feels well today. Respiratory rate much improved. Remains on 4 L O2 Blood pressure within normal limits Review of Systems Review of Systems: Yes all other systems are reviewed and are negative Physical Exam Exam: Exam: General: A&O x3, oriented to time place person and situation, comfortable, no pain Cardiac: S1, S2 auscultated with no S3/4, no MRG. Well perfused. Respiratory: Decreased inspiratory and expiratory breath sounds bilaterally, at the bases. Bibasilar crepitations auscultated, with end expiratory wheezing in the mid and upper zones. No tripoding, peripheral or central cyanosis, no intercostal retractions. GI/ : No abdominal pain on palpation, no masses or distentions. MSK: Normal ambulation without pain at bony prominences or musculature Neurological: Normal neurological examination on overview, without obvious CN II-XII abnormalities. Vital Signs: Vital Signs: Last Vital Signs Temp 98.8 F 02/18/25 15:45 Pulse 70 02/18/25 15:45 Resp 18 02/18/25 15:45 BP 132/50 L 02/18/25 15:45 Pulse Ox 94 02/18/25 15:45 O2 Del Method Nasal Cannula 02/18/25 15:45 O2 Flow Rate 2 02/18/25 15:45 Oxygen Flow Rate 4 02/13/25 15:02 BMI result Body Mass Index 26.2 Objective Data Active Medications Acetaminophen (Acetaminophen 325 Mg Tablet) 650 mg PO Q6H PRN PRN Reason: Pain, Mild 1-3,fever,headache Last Admin: 02/18/25 16:46 Dose: 650 mg Documented By: ROGER Albuterol Sulfate (Albuterol Sulfate (0.083%) 2.5 Mg/3 Ml Vial.Neb) 2.5 mg INHALE Q6H PRN PRN Reason: Shortness of Breath Last Admin: 02/17/25 13:19 Dose: 2.5 mg Documented By: BHAVANA Albuterol Sulfate (Albuterol Sulfate 90 Mcg 8 Gm Inhaler) 2 puff INHALE Q4H PRN PRN Reason: Wheezing Albuterol/Ipratropium (Albuterol/Iprat 2.5/0.5mg 3 Ml Ampul.Neb) 3 ml INHALE RQ4H WHILE AWAKE [facility] Last Admin: 02/18/25 15:28 Dose: Not Given Documented By: MIGUEL Non-Admin Reason: Patient Asleep Amlodipine Besylate (Amlodipine Besylate 10 Mg Tablet) 10 mg PO DAILY [facility]; Protocol Last Admin: 02/18/25 08:41 Dose: 10 mg Documented By: HENNA Aspirin (Aspirin Enteric Coated 81 Mg Tablet.Dr) 81 mg PO DAILY [facility] Last Admin: 02/18/25 08:40 Dose: 81 mg Documented By: HENNA Buprenorphine/Naloxone (Buprenorphine/Naloxone 12/3 Mg Film) 1 film SUBLINGUAL DAILY [facility] Last Admin: 02/18/25 08:41 Dose: 1 film Documented By: HENNA Calcium Acetate (Calcium Acetate 667 Mg Capsule) 667 mg PO TIDWM [facility] Last Admin: 02/18/25 16:41 Dose: 667 mg Documented By: ROGER Calcium Carbonate (Calcium Carbonate 750 Mg Tab.Chew) 750 mg PO Q4H PRN PRN Reason: Heartburn Carvedilol (Carvedilol 25 Mg Tablet) 25 mg PO BID [facility]; Protocol Last Admin: 02/18/25 08:41 Dose: 25 mg Documented By: HENNA Ceftriaxone Sodium (Ceftriaxone Sodium 1 Gm Vial) 1 gm IVPUSH Q24H [facility] Last Admin: 02/18/25 13:52 Dose: 1 gm Documented By: HENNA Clonidine (Clonidine 0.3 Mg Patch.Tdwk) 0.3 mg TRANSDERMA WE [facility]; Protocol Last Admin: 02/18/25 11:40 Dose: 0.3 mg Documented By: HENNA Dextrose (Dextrose 50 % 25 Gm/50 Ml Syringe) 25 gm IVPUSH Q15M PRN; Protocol PRN Reason: per Hypoglycemia Standing Ord. Docusate Sodium (Docusate Sodium 100 Mg Capsule) 100 mg PO BID [facility] Last Admin: 02/18/25 08:40 Dose: 100 mg Documented By: HENNA Doxycycline Monohydrate (Doxycycline Monohydrate 100 Mg Capsule) 100 mg PO Q12H [facility] Last Admin: 02/18/25 11:36 Dose: 100 mg Documented By: HENNA Gabapentin (Gabapentin 100 Mg Capsule) 100 mg PO TID [facility] Last Admin: 02/18/25 16:41 Dose: 100 mg Documented By: ROGER Glucose (Glucose Gel 15 Gm Gel..Gram.) 15 gm PO Q15M PRN; Protocol PRN Reason: per Hypoglycemia Standing Ord. Guaifenesin/Codeine Phosphate (Guaifen/Codeine Sf 200/20/10ml 10 Ml Liquid) 5 ml PO Q4H PRN PRN Reason: Cough Heparin Sodium (Porcine) (Heparin Sodium,Porcine 5,000 Unit/Ml Vial) 5,000 unit SUBCUT Q12H [facility] Last Admin: 02/18/25 10:26 Dose: 5,000 unit Documented By: HENNA Hydralazine HCl (Hydralazine Hcl 50 Mg Tablet) 100 mg PO TID [facility]; Protocol Last Admin: 02/18/25 16:41 Dose: 100 mg Documented By: ROGER Insulin Human Lispro (Insulin Lispro 100 Unit/Ml 3 Ml Vial) 0 unit SUBCUT QIDACHS [facility]; Protocol Last Admin: 02/18/25 11:30 Dose: Not Given Documented By: HENNA Non-Admin Reason: low poc Isosorbide Dinitrate (Isosorbide Dinitrate 10 Mg Tablet) 30 mg PO TID [facility]; Protocol Last Admin: 02/18/25 16:41 Dose: 30 mg Documented By: ROGER Lactulose (Lactulose 20 Gm/30 Ml Solution) 10 gm PO DAILY PRN PRN Reason: Constipation Losartan Potassium (Losartan Potassium 50 Mg Tablet) 100 mg PO DAILY [facility]; Protocol Last Admin: 02/18/25 08:40 Dose: 100 mg Documented By: HENNA Magnesium Hydroxide (Milk Of Magnesia 30 Ml Oral.Susp) 30 ml PO DAILY PRN PRN Reason: Constipation Melatonin (Melatonin 3 Mg Tablet) 6 mg PO BEDTIME PRN PRN Reason: Insomnia Mirtazapine (Mirtazapine 15 Mg Tablet) 30 mg PO BEDTIME [facility] Last Admin: 02/17/25 21:57 Dose: 30 mg Documented By: GENE Multivitamins/Vitamin C (Multivitamin Tablet) 1 tab PO DAILY [facility] Last Admin: 02/18/25 08:40 Dose: 1 tab Documented By: HENNA Nicotine (Nicotine 14 Mg Patch.Td24) 14 mg TRANSDERMA DAILY [facility] Last Admin: 02/18/25 08:41 Dose: 14 mg Documented By: HENNA Omeprazole (Omeprazole 20 Mg Capsule.Dr) 20 mg PO DAILY@0630 [facility] Last Admin: 02/18/25 05:56 Dose: 20 mg Documented By: GENE Ondansetron HCl (Ondansetron Hcl 4 Mg/2 Ml Vial) 4 mg IVPUSH Q8H PRN PRN Reason: Nausea and Vomiting Last Admin: 02/18/25 10:26 Dose: 4 mg Documented By: HENNA Oxycodone HCl (Oxycodone Hcl Immed Release 5 Mg Tablet) 5 mg PO Q6H PRN PRN Reason: Pain, Severe (Pain Scale 7-10) Last Admin: 02/15/25 20:16 Dose: 5 mg Documented By: GENE Polyethylene Glycol (Polyethylene Glycol 3350 17 Gm Powd.Pack) 17 gm PO DAILY [facility] Last Admin: 02/18/25 08:40 Dose: 17 gm Documented By: HENNA Sodium Chloride (0.9 % Sodium Chloride Flush 3 Ml Syringe) 3 ml IVFLUSH QSHIFT [facility] Last Admin: 02/18/25 13:32 Dose: Not Given Documented By: HENNA Non-Admin Reason: Previously Administered Sodium Zirconium Cyclosilicate (Sodium Zirconium Cyclosilicate 10 Gm Powd.Pack) 10 gm PO MOWEFR@0900 [facility] Last Admin: 02/18/25 08:40 Dose: 10 gm Documented By: HENNA Tramadol HCl (Tramadol Hcl 50 Mg Tablet) 50 mg PO Q6H PRN PRN Reason: Pain, Moderate(Pain Scale 4-6) Last Admin: 02/17/25 01:23 Dose: 50 mg Documented By: GENE Trazodone HCl (Trazodone Hcl 100 Mg Tablet) 100 mg PO BEDTIME PRN PRN Reason: Insomnia Last Admin: 02/17/25 01:23 Dose: 100 mg Documented By: GENE Labs 02/18/25 08:20 02/18/25 08:20 Labs: Laboratory Results - last 24 hr 02/17/25 02/18/25 02/18/25 20:19 08:08 08:20 MCV 98.4 H MCH 31.8 MCHC 32.3 RDW 14.1 Plt Count 262 MPV 9.8 Immature Gran % (Auto) 1.2 H Neut % (Auto) 72.0 Lymph % (Auto) 14.3 L [place] % (Auto) 8.1 Eos % (Auto) 4.0 Baso % (Auto) 0.4 Lymph # (Auto) 1.2 [place] # (Auto) 0.7 Eos # (Auto) 0.3 Baso # (Auto) 0.0 Abs Immat Gran (auto) 0.10 H Absolute Neuts (auto) 6.0 Absolute Nucleated RBC 0.000 Nucleated RBC % (auto) 0.0 Anion Gap 22 H Estim Creat Clear Calc 9.4 Estimated GFR 9 POC Glucose 148 H 153 H Random Glucose 150 H Calcium 9.5 NT-Pro-B Natriuret Pep 16152.6 H 02/18/25 11:23 MCV MCH MCHC RDW Plt Count MPV Immature Gran % (Auto) Neut % (Auto) Lymph % (Auto) [place] % (Auto) Eos % (Auto) Baso % (Auto) Lymph # (Auto) [place] # (Auto) Eos # (Auto) Baso # (Auto) Abs Immat Gran (auto) Absolute Neuts (auto) Absolute Nucleated RBC Nucleated RBC % (auto) Anion Gap Estim Creat Clear Calc Estimated GFR POC Glucose 81 Random Glucose Calcium NT-Pro-B Natriuret Pep Assessment and Plan (1) Hypertensive urgency: Status: Acute (2) Essential hypertension: Status: Acute (3) Heart failure with preserved ejection fraction: Status: Acute (4) Elevated troponin: Status: Acute (5) Volume overload: Status: Acute (6) Acute left flank pain: Status: Acute (7) ESRD (end stage renal disease) on dialysis: Status: Chronic (8) CKD (chronic kidney disease): Status: Acute (9) Dialysis patient, noncompliant: Status: Chronic (10) Acute hyperkalemia: Status: Acute (11) Reactive airway disease: Status: Acute (12) Acute respiratory failure with hypoxia: Status: Acute Plan 69-year-old Swedish-speaking female with a past medical history significant for pulmonary hypertension, asthma/COPD overlap, hypertension, diabetes, ESRD TTS, HFpEF, hypertrophic cardiomyopathy, prolapsed rectum and recent admission at [facility] for hypertensive emergency with flash pulmonary edema placed on BiPAP with dialysis, who presented to the ED due to hypoxia and dyspnea, admitted for multifactorial acute hypoxic respiratory failure. Multifactorial acute hypoxic respiratory failure - Hospital-acquired pneumonia with mucus plugging - Cardiorenal syndrome type 4 in the setting of ESRD HD TTS - Acute CHFpEF exacerbation in the setting of flash pulmonary edema 2/2 hypertensive emergency likely multifactorial: fluid overloaded from ESRD and possible pneumonia pulmonology consulted, feels CT more indicative of pulmonary edema rather than pneumonia; no need for inpatient bronch pulmonology question need for antibiotics, but will continue ceftriaxone and doxycycline given productive cough and SOB x2 weeks Patient has also had multiple episodes of hypertensive urgency/emergency with subsequent pulmonary edema and respiratory distress. follow up with pulmonology in [address] of chest and need for possible outpatient bronchoscopy no longer on supplemental O2 post-dialysis Unfortunately, the patient is aneuric, and diuresis with loop diuretics has been ineffective PLAN - cardiac telemetry - BiPAP nightly - monitor BMP and volume status - caution with patient during hypovolemic states; given tendency for hypotension and tachycardia leading to flash pulmonary edema - nephrology following, continue HD TTS - address HTN for goal blood pressure 120-140 systolic Type 2 demand NSTEMI In the setting of acute CHF exacerbation and hypertensive emergency ECG unremarkable Troponin flat - persistent elevation likely 2/2 ESRD - monitor on tele ESRD on HD TTS - follows with [facility] - received dialysis TTS Rectal prolapse - ongoing x2 years - multiple previous surgical attempts has been postponed due a variety of different ongoing medical issues - general surgery consulted, recommend high-fiber diet and stool softeners to avoid straining with bowel movements - outpatient surgical repair once pt medically stable T2 DM Diabetic neuropathy - likely diabetic neuropathy - started on gabapentin 100 mg t.i.d. with improvement, can likely continue at COPD - duonebs PRN QUALITY METRICS - VTE: Heparin 5000 t.i.d. SQ - CODE STATUS: Full code - DIET: Renal Total time managing care of this patient today: 35 minutes. Quality Stroke Does the patient have a stroke diagnosis?: No VTE Prior VTE?: No VTE Risk Level:: Medical - moderate - high VTE Device Contraindication: Treatment Not Indicated VTE Drug Contraindication: N/A - Med Ordered
[2025-02-18 17:42] LABS: Glucose, Whole Blood 189 mg/dL (60-115)
[2025-02-18 20:47] LABS: Glucose, Whole Blood 190 mg/dL (60-115)
[2025-02-18] MEDS: 0.9 % Sodium Chloride Flush 3 ML SYRINGE IVFLUSH (20:57)
[2025-02-18] MEDS: guaiFEN/Codeine SF 200/20/10ML 10 ML LIQUID 5 ML PO (21:05)
[2025-02-18] MEDS: oxyCODONE HCl Immed Release 5 MG TABLET PO (21:05)
[2025-02-19] VITALS (11 sets, daily range): BP systolic 111–139; BP diastolic 58–92; PULSE 66–86; RESP 12–20; TEMP 36.6–37.5; O2SAT 91–95
--- NOTE | 2025-02-19 07:24 | P.CDIM_ITS ---
PROVIDER RESPONSE TEXT: To clarify, the appropriate diagnosis supported by the clinical indicators: Diabetic Neuropathy: polyneuropathy QUERY TEXT: PHYSICIAN'S DOCUMENTATION REQUEST Date of Query: 02/17/2025 08:31 AM EDT Patient Name: Cruz Muller Admit Date: 02/13/2025 Dear Davis Huggins MD, A review of the medical record indicates additional documentation may be needed. Please review below and update the documentation accordingly. Clinical Indicators: Progress note 02/16/25 - Leg pain Likely Diabetic neuropathy Started on Gabapentin 100 mg t.i.d. with improvement. Please clarify the following regarding further specificity to the documented Diabetic neuropathy: Diabetic Neuropathy Peripheral, Autonomic, Polyneuropathy, Mononeuropathy etc. Other specifics Other (explain) Clinically unable to determine (explain) Thank you, Khloe Kyle, CCS, CDIS Use of terms such as suspected, likely, concern for, or probable (associated with a specific diagnosis that is being evaluated, monitored, or treated as if it exists) are acceptable and can be coded in the inpatient setting, when documented at the time of discharge. Please use your independent medical judgment in providing your response. THIS QUERY IS PART OF THE PERMANENT MEDICAL RECORD
[2025-02-19 07:50] LABS: Glucose, Whole Blood 166 mg/dL (60-115)
[2025-02-19] MEDS: Aspirin Enteric Coated 81 MG TABLET.DR PO (10:35)
[2025-02-19] MEDS: Nicotine 14 MG PATCH.TD24 TRANSDERMA (10:37)
[2025-02-19] MEDS: Buprenorphine/Naloxone 12/3 mg FILM 1 FILM SUBLINGUAL (10:38)
[2025-02-19] MEDS: 0.9 % Sodium Chloride Flush 3 ML SYRINGE IVFLUSH ×3 (10:55→22:07)
--- NOTE | 2025-02-19 11:14 | PC.NURSE ---
pt came back from HD. Suboxone given late per jul. pharmacist called and notified.
[2025-02-19 11:26] LABS: Glucose, Whole Blood 161 mg/dL (60-115)
[2025-02-19] MEDS: Albuterol/Iprat 2.5/0.5MG 3 ML AMPUL.NEB INHALE ×3 (11:28→20:07)
--- NOTE | 2025-02-19 15:46 | HO.PM.IMPN ---
Subjective Subjective Date of Service: 02/19/25 Interval History: Patient reports persistent difficulty with her breathing today. Improves with nasal oxygen. She does report that overall she feels better compared to yesterday, however usually feels very tired post HD Review of Systems Review of Systems: Yes all other systems are reviewed and are negative Physical Exam Exam: Exam: General: A&O x3, oriented to time place person and situation, comfortable, no pain Cardiac: S1, S2 auscultated with no S3/4, no MRG. Well perfused. Respiratory: Decreased inspiratory and expiratory breath sounds bilaterally, at the bases. Bibasilar crepitations auscultated, with end expiratory wheezing in the mid and upper zones. No tripoding, peripheral or central cyanosis, no intercostal retractions. GI/ : No abdominal pain on palpation, no masses or distentions. MSK: Normal ambulation without pain at bony prominences or musculature Neurological: Normal neurological examination on overview, without obvious CN II-XII abnormalities. Vital Signs: Vital Signs: Last Vital Signs Temp 97.8 F 02/19/25 11:56 Pulse 79 02/19/25 11:56 Resp 20 02/19/25 11:56 BP 118/58 L 02/19/25 11:56 Pulse Ox 92 02/19/25 12:05 O2 Del Method Nasal Cannula 02/19/25 12:05 O2 Flow Rate 2 02/19/25 12:05 Oxygen Flow Rate 4 02/13/25 15:02 BMI result Body Mass Index 26.2 Objective Data Active Medications Acetaminophen (Acetaminophen 325 Mg Tablet) 650 mg PO Q6H PRN PRN Reason: Pain, Mild 1-3,fever,headache Last Admin: 02/18/25 16:46 Dose: 650 mg Documented By: ROGER Albuterol Sulfate (Albuterol Sulfate (0.083%) 2.5 Mg/3 Ml Vial.Neb) 2.5 mg INHALE Q6H PRN PRN Reason: Shortness of Breath Last Admin: 02/17/25 13:19 Dose: 2.5 mg Documented By: BHAVANA Albuterol Sulfate (Albuterol Sulfate 90 Mcg 8 Gm Inhaler) 2 puff INHALE Q4H PRN PRN Reason: Wheezing Albuterol/Ipratropium (Albuterol/Iprat 2.5/0.5mg 3 Ml Ampul.Neb) 3 ml INHALE RQ4H WHILE AWAKE [facility] Last Admin: 02/19/25 11:28 Dose: 3 ml Documented By: MIGUEL Amlodipine Besylate (Amlodipine Besylate 10 Mg Tablet) 10 mg PO DAILY [facility]; Protocol Last Admin: 02/19/25 10:36 Dose: 10 mg Documented By: SALLY Aspirin (Aspirin Enteric Coated 81 Mg Tablet.Dr) 81 mg PO DAILY [facility] Last Admin: 02/19/25 10:35 Dose: 81 mg Documented By: SALLY Buprenorphine/Naloxone (Buprenorphine/Naloxone 12/3 Mg Film) 1 film SUBLINGUAL DAILY [facility] Last Admin: 02/19/25 10:38 Dose: 1 film Documented By: SALLY Calcium Acetate (Calcium Acetate 667 Mg Capsule) 667 mg PO TIDWM [facility] Last Admin: 02/19/25 10:55 Dose: 667 mg Documented By: SALLY Calcium Carbonate (Calcium Carbonate 750 Mg Tab.Chew) 750 mg PO Q4H PRN PRN Reason: Heartburn Carvedilol (Carvedilol 25 Mg Tablet) 25 mg PO BID [facility]; Protocol Last Admin: 02/19/25 10:36 Dose: 25 mg Documented By: SALLY Ceftriaxone Sodium (Ceftriaxone Sodium 1 Gm Vial) 1 gm IVPUSH Q24H [facility] Last Admin: 02/19/25 13:57 Dose: 1 gm Documented By: SALLY Clonidine (Clonidine 0.3 Mg Patch.Tdwk) 0.3 mg TRANSDERMA WE [facility]; Protocol Last Admin: 02/18/25 11:40 Dose: 0.3 mg Documented By: COLTFALaron Dextrose (Dextrose 50 % 25 Gm/50 Ml Syringe) 25 gm IVPUSH Q15M PRN; Protocol PRN Reason: per Hypoglycemia Standing Ord. Docusate Sodium (Docusate Sodium 100 Mg Capsule) 100 mg PO BID [facility] Last Admin: 02/19/25 10:37 Dose: 100 mg Documented By: SALLY Doxycycline Monohydrate (Doxycycline Monohydrate 100 Mg Capsule) 100 mg PO Q12H [facility] Last Admin: 02/19/25 11:48 Dose: 100 mg Documented By: SALLY Gabapentin (Gabapentin 100 Mg Capsule) 100 mg PO TID [facility] Last Admin: 02/19/25 10:36 Dose: 100 mg Documented By: SALLY Glucose (Glucose Gel 15 Gm Gel..Gram.) 15 gm PO Q15M PRN; Protocol PRN Reason: per Hypoglycemia Standing Ord. Guaifenesin/Codeine Phosphate (Guaifen/Codeine Sf 200/20/10ml 10 Ml Liquid) 5 ml PO Q4H PRN PRN Reason: Cough Last Admin: 02/18/25 21:05 Dose: 5 ml Documented By: WONG Heparin Sodium (Porcine) (Heparin Sodium,Porcine 5,000 Unit/Ml Vial) 5,000 unit SUBCUT Q12H [facility] Last Admin: 02/19/25 11:44 Dose: 5,000 unit Documented By: SALLY Hydralazine HCl (Hydralazine Hcl 50 Mg Tablet) 100 mg PO TID [facility]; Protocol Last Admin: 02/19/25 10:35 Dose: 100 mg Documented By: SALLY Insulin Human Lispro (Insulin Lispro 100 Unit/Ml 3 Ml Vial) 0 unit SUBCUT QIDACHS [facility]; Protocol Last Admin: 02/19/25 11:44 Dose: 2 unit Documented By: SALLY Isosorbide Dinitrate (Isosorbide Dinitrate 10 Mg Tablet) 30 mg PO TID [facility]; Protocol Last Admin: 02/19/25 10:35 Dose: 30 mg Documented By: SALLY Lactulose (Lactulose 20 Gm/30 Ml Solution) 10 gm PO DAILY PRN PRN Reason: Constipation Losartan Potassium (Losartan Potassium 50 Mg Tablet) 100 mg PO DAILY [facility]; Protocol Last Admin: 02/19/25 10:36 Dose: 100 mg Documented By: SALLY Magnesium Hydroxide (Milk Of Magnesia 30 Ml Oral.Susp) 30 ml PO DAILY PRN PRN Reason: Constipation Melatonin (Melatonin 3 Mg Tablet) 6 mg PO BEDTIME PRN PRN Reason: Insomnia Last Admin: 02/18/25 21:05 Dose: 6 mg Documented By: WONG Mirtazapine (Mirtazapine 15 Mg Tablet) 30 mg PO BEDTIME [facility] Last Admin: 02/18/25 20:56 Dose: 30 mg Documented By: WONG Multivitamins/Vitamin C (Multivitamin Tablet) 1 tab PO DAILY [facility] Last Admin: 02/19/25 10:36 Dose: 1 tab Documented By: SALLY Nicotine (Nicotine 14 Mg Patch.Td24) 14 mg TRANSDERMA DAILY [facility] Last Admin: 02/19/25 10:37 Dose: 14 mg Documented By: SALLY Omeprazole (Omeprazole 20 Mg Capsule.Dr) 20 mg PO DAILY@0630 [facility] Last Admin: 02/19/25 05:32 Dose: 20 mg Documented By: WONG Ondansetron HCl (Ondansetron Hcl 4 Mg/2 Ml Vial) 4 mg IVPUSH Q8H PRN PRN Reason: Nausea and Vomiting Last Admin: 02/18/25 10:26 Dose: 4 mg Documented By: HENNA Polyethylene Glycol (Polyethylene Glycol 3350 17 Gm Powd.Pack) 17 gm PO DAILY [facility] Last Admin: 02/19/25 10:37 Dose: 17 gm Documented By: SALLY Sodium Chloride (0.9 % Sodium Chloride Flush 3 Ml Syringe) 3 ml IVFLUSH QSHIFT [facility] Last Admin: 02/19/25 10:55 Dose: 3 ml Documented By: SALLY Sodium Zirconium Cyclosilicate (Sodium Zirconium Cyclosilicate 10 Gm Powd.Pack) 10 gm PO MOWEFR@0900 [facility] Last Admin: 02/18/25 08:40 Dose: 10 gm Documented By: HENNA Trazodone HCl (Trazodone Hcl 100 Mg Tablet) 100 mg PO BEDTIME PRN PRN Reason: Insomnia Last Admin: 02/19/25 00:05 Dose: 100 mg Documented By: WONG Labs 02/18/25 08:20 02/18/25 08:20 Labs: Laboratory Results - last 24 hr 02/18/25 02/18/25 02/19/25 16:26 20:28 07:47 POC Glucose 189 H 190 H 166 H 02/19/25 11:22 POC Glucose 161 H Microbiology Microbiology Results: Microbiology 02/13/25 17:47 Blood Culture - Final Blood - Venous No growth after 5 days. 02/13/25 17:47 Blood Culture - Final Blood - Venous No growth after 5 days. Assessment and Plan (1) Hypertensive urgency: Status: Acute (2) Heart failure with preserved ejection fraction: Status: Acute (3) Rectal prolapse: Status: Acute (4) Proctitis: Status: Acute (5) ESRD (end stage renal disease) on dialysis: Status: Chronic (6) Dialysis patient, noncompliant: Status: Chronic (7) Acute hyperkalemia: Status: Acute (8) Reactive airway disease: Status: Acute (9) Shortness of breath: Status: Acute (10) Acute respiratory failure with hypoxia: Status: Acute (11) Atelectasis: Status: Acute Plan 69-year-old Lithuanian-speaking female with a past medical history significant for pulmonary hypertension, asthma/COPD overlap, hypertension, diabetes, ESRD TTS, HFpEF, hypertrophic cardiomyopathy, prolapsed rectum and recent admission at [facility] for hypertensive emergency with flash pulmonary edema placed on BiPAP with dialysis, who presented to the ED due to hypoxia and dyspnea, admitted for multifactorial acute hypoxic respiratory failure. Multifactorial acute hypoxic respiratory failure - Hospital-acquired pneumonia with mucus plugging - Cardiorenal syndrome type 4 in the setting of ESRD HD TTS - Acute CHFpEF exacerbation in the setting of flash pulmonary edema 2/2 hypertensive emergency likely multifactorial: fluid overloaded from ESRD and possible pneumonia pulmonology consulted, feels CT more indicative of pulmonary edema rather than pneumonia; no need for inpatient bronch pulmonology question need for antibiotics, but will continue ceftriaxone and doxycycline given productive cough and SOB x2 weeks Patient has also had multiple episodes of hypertensive urgency/emergency with subsequent pulmonary edema and respiratory distress. follow up with pulmonology in [address] of chest and need for possible outpatient bronchoscopy no longer on supplemental O2 post-dialysis Unfortunately, the patient is aneuric, and diuresis with loop diuretics has been ineffective PLAN - cardiac telemetry - BiPAP nightly - monitor BMP and volume status - caution with patient during hypovolemic states; given tendency for hypotension and tachycardia leading to flash pulmonary edema - nephrology following, continue HD TTS - Pulmonary reccs greatly appreciated - address HTN for goal blood pressure 120-140 systolic Type 2 demand NSTEMI In the setting of acute CHF exacerbation and hypertensive emergency ECG unremarkable Troponin flat - persistent elevation likely 2/2 ESRD - monitor on tele ESRD on HD TTS - follows with [facility] - received dialysis TTS Rectal prolapse - ongoing x2 years - multiple previous surgical attempts has been postponed due a variety of different ongoing medical issues - general surgery consulted, recommend high-fiber diet and stool softeners to avoid straining with bowel movements - outpatient surgical repair once pt medically stable T2 DM Diabetic neuropathy - likely diabetic neuropathy - started on gabapentin 100 mg t.i.d. with improvement, can likely continue at COPD - duonebs PRN QUALITY METRICS - VTE: Heparin 5000 t.i.d. SQ - CODE STATUS: Full code - DIET: Renal Total time managing care of this patient today: 45 minutes. Quality Stroke Does the patient have a stroke diagnosis?: No VTE Prior VTE?: No VTE Risk Level:: Medical - moderate - high VTE Device Contraindication: Treatment Not Indicated VTE Drug Contraindication: N/A - Med Ordered
[2025-02-19 16:14] LABS: Glucose, Whole Blood 142 mg/dL (60-115)
[2025-02-19 21:06] LABS: Glucose, Whole Blood 167 mg/dL (60-115)
[2025-02-20] VITALS (12 sets, daily range): BP systolic 115–183; BP diastolic 55–91; PULSE 57–88; RESP 12–23; TEMP 36.3–37.6; O2SAT 78–100
[2025-02-20] MEDS: Albuterol/Iprat 2.5/0.5MG 3 ML AMPUL.NEB INHALE ×3 (07:58→20:38)
[2025-02-20 08:26] LABS: Glucose, Whole Blood 141 mg/dL (60-115)
[2025-02-20] MEDS: Aspirin Enteric Coated 81 MG TABLET.DR PO (09:16)
[2025-02-20] MEDS: Buprenorphine/Naloxone 12/3 mg FILM 1 FILM SUBLINGUAL (09:17)
[2025-02-20] MEDS: Nicotine 14 MG PATCH.TD24 TRANSDERMA (09:18)
[2025-02-20] MEDS: 0.9 % Sodium Chloride Flush 3 ML SYRINGE IVFLUSH ×3 (09:21→21:57)
[2025-02-20 11:40] LABS: Glucose, Whole Blood 158 mg/dL (60-115)
--- NOTE | 2025-02-20 13:42 | MHC.CM.PN ---
Addendum entered by Quynh Patrick 02/20/25 16:11: PT EVALUATED PT AND IS RECOMMENDING STR. THIS CM MET WITH PT WITH THE ASSISTANCE OF A DUMPLING 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 TO DISCUSS DISCHARGE PLAN/STR OPTIONS. PT IS IN AGREEMENT WITH GOING TO STR, SHE WOULD LIKE [place] STAY [place]. STR REFERRALS SENT [facility], AWAITING BED OFFER. Original Note: EMR REVIEWED AND PER MD ROUNDS, PT IS NOT MEDICALLY CLEARED FOR DISCHARGE DUE TO MANAGEMENT OF PNEUMONIA.
[2025-02-20 16:57] LABS: Glucose, Whole Blood 128 mg/dL (60-115)
--- NOTE | 2025-02-20 17:54 | HO.PM.IMPN ---
Subjective Subjective Date of Service: 02/20/25 Interval History: Patient has persistent fatigability today. She reports that her breathing is unchanged as compared to yesterday. She has planned hemodialysis tomorrow. The wheezing by bedside can be heard Review of Systems Review of Systems: Yes all other systems are reviewed and are negative Physical Exam Exam: Exam: General: A&O x3, oriented to time place person and situation, comfortable, no pain Cardiac: S1, S2 auscultated with no S3/4, no MRG. Well perfused. Respiratory: Decreased inspiratory and expiratory breath sounds bilaterally, at the bases. Bibasilar crepitations auscultated, with end expiratory wheezing in the mid and upper zones. No tripoding, peripheral or central cyanosis, no intercostal retractions. GI/ : No abdominal pain on palpation, no masses or distentions. MSK: Normal ambulation without pain at bony prominences or musculature Neurological: Normal neurological examination on overview, without obvious CN II-XII abnormalities. Vital Signs: Vital Signs: Last Vital Signs Temp 97.4 F 02/20/25 15:50 Pulse 88 02/20/25 15:50 Resp 18 02/20/25 15:50 BP 115/55 L 02/20/25 15:50 Pulse Ox 99 02/20/25 15:50 O2 Del Method Nasal Cannula 02/20/25 15:50 O2 Flow Rate 2 02/20/25 15:50 Oxygen Flow Rate 4 02/13/25 15:02 BMI result Body Mass Index 26.2 Objective Data Active Medications Acetaminophen (Acetaminophen 325 Mg Tablet) 650 mg PO Q6H PRN PRN Reason: Pain, Mild 1-3,fever,headache Last Admin: 02/19/25 17:54 Dose: 650 mg Documented By: SALLY Albuterol Sulfate (Albuterol Sulfate (0.083%) 2.5 Mg/3 Ml Vial.Neb) 2.5 mg INHALE Q6H PRN PRN Reason: Shortness of Breath Last Admin: 02/17/25 13:19 Dose: 2.5 mg Documented By: BHAVANA Albuterol Sulfate (Albuterol Sulfate 90 Mcg 8 Gm Inhaler) 2 puff INHALE Q4H PRN PRN Reason: Wheezing Albuterol/Ipratropium (Albuterol/Iprat 2.5/0.5mg 3 Ml Ampul.Neb) 3 ml INHALE RQ4H WHILE AWAKE [facility] Last Admin: 02/20/25 15:26 Dose: Not Given Documented By: CLARISSA Non-Admin Reason: Patient Asleep Amlodipine Besylate (Amlodipine Besylate 10 Mg Tablet) 10 mg PO DAILY [facility]; Protocol Last Admin: 02/20/25 09:15 Dose: 10 mg Documented By: SALLY Aspirin (Aspirin Enteric Coated 81 Mg Tablet.Dr) 81 mg PO DAILY [facility] Last Admin: 02/20/25 09:16 Dose: 81 mg Documented By: SALLY Buprenorphine/Naloxone (Buprenorphine/Naloxone 12/3 Mg Film) 1 film SUBLINGUAL DAILY [facility] Last Admin: 02/20/25 09:17 Dose: 1 film Documented By: SALLY Calcium Acetate (Calcium Acetate 667 Mg Capsule) 667 mg PO TIDWM [facility] Last Admin: 02/20/25 17:09 Dose: 667 mg Documented By: SALLY Calcium Carbonate (Calcium Carbonate 750 Mg Tab.Chew) 750 mg PO Q4H PRN PRN Reason: Heartburn Carvedilol (Carvedilol 25 Mg Tablet) 25 mg PO BID [facility]; Protocol Last Admin: 02/20/25 09:16 Dose: 25 mg Documented By: SALLY Ceftriaxone Sodium (Ceftriaxone Sodium 1 Gm Vial) 1 gm IVPUSH Q24H [facility] Last Admin: 02/20/25 14:30 Dose: 1 gm Documented By: SALLY Clonidine (Clonidine 0.3 Mg Patch.Tdwk) 0.3 mg TRANSDERMA WE [facility]; Protocol Last Admin: 02/18/25 11:40 Dose: 0.3 mg Documented By: COLTFALaron Dextrose (Dextrose 50 % 25 Gm/50 Ml Syringe) 25 gm IVPUSH Q15M PRN; Protocol PRN Reason: per Hypoglycemia Standing Ord. Docusate Sodium (Docusate Sodium 100 Mg Capsule) 100 mg PO BID [facility] Last Admin: 02/20/25 09:18 Dose: 100 mg Documented By: SALLY Doxycycline Monohydrate (Doxycycline Monohydrate 100 Mg Capsule) 100 mg PO Q12H [facility] Last Admin: 02/20/25 12:11 Dose: 100 mg Documented By: SALLY Gabapentin (Gabapentin 100 Mg Capsule) 100 mg PO TID [facility] Last Admin: 02/20/25 14:30 Dose: 100 mg Documented By: SALLY Glucose (Glucose Gel 15 Gm Gel..Gram.) 15 gm PO Q15M PRN; Protocol PRN Reason: per Hypoglycemia Standing Ord. Heparin Sodium (Porcine) (Heparin Sodium,Porcine 5,000 Unit/Ml Vial) 5,000 unit SUBCUT Q12H [facility] Last Admin: 02/20/25 12:11 Dose: 5,000 unit Documented By: SALLY Hydralazine HCl (Hydralazine Hcl 50 Mg Tablet) 100 mg PO TID [facility]; Protocol Last Admin: 02/20/25 14:30 Dose: 100 mg Documented By: SALLY Insulin Human Lispro (Insulin Lispro 100 Unit/Ml 3 Ml Vial) 0 unit SUBCUT QIDACHS [facility]; Protocol Last Admin: 02/20/25 17:08 Dose: Not Given Documented By: SALLY Non-Admin Reason: No Insulin Coverage Isosorbide Dinitrate (Isosorbide Dinitrate 10 Mg Tablet) 30 mg PO TID [facility]; Protocol Last Admin: 02/20/25 14:30 Dose: 30 mg Documented By: SALLY Lactulose (Lactulose 20 Gm/30 Ml Solution) 10 gm PO DAILY PRN PRN Reason: Constipation Losartan Potassium (Losartan Potassium 50 Mg Tablet) 100 mg PO DAILY [facility]; Protocol Last Admin: 02/20/25 09:15 Dose: 100 mg Documented By: SALLY Magnesium Hydroxide (Milk Of Magnesia 30 Ml Oral.Susp) 30 ml PO DAILY PRN PRN Reason: Constipation Melatonin (Melatonin 3 Mg Tablet) 6 mg PO BEDTIME PRN PRN Reason: Insomnia Last Admin: 02/18/25 21:05 Dose: 6 mg Documented By: WONG Mirtazapine (Mirtazapine 15 Mg Tablet) 30 mg PO BEDTIME [facility] Last Admin: 02/19/25 21:57 Dose: 30 mg Documented By: ИРИНА Multivitamins/Vitamin C (Multivitamin Tablet) 1 tab PO DAILY [facility] Last Admin: 02/20/25 09:16 Dose: 1 tab Documented By: SALLY Nicotine (Nicotine 14 Mg Patch.Td24) 14 mg TRANSDERMA DAILY [facility] Last Admin: 02/20/25 09:18 Dose: 14 mg Documented By: SALLY Omeprazole (Omeprazole 20 Mg Capsule.Dr) 20 mg PO DAILY@0630 [facility] Last Admin: 02/20/25 05:22 Dose: 20 mg Documented By: ИРИНА Ondansetron HCl (Ondansetron Hcl 4 Mg/2 Ml Vial) 4 mg IVPUSH Q8H PRN PRN Reason: Nausea and Vomiting Last Admin: 02/18/25 10:26 Dose: 4 mg Documented By: HENNA Polyethylene Glycol (Polyethylene Glycol 3350 17 Gm Powd.Pack) 17 gm PO DAILY [facility] Last Admin: 02/20/25 09:21 Dose: 17 gm Documented By: SALLY Sodium Chloride (0.9 % Sodium Chloride Flush 3 Ml Syringe) 3 ml IVFLUSH QSHIFT [facility] Last Admin: 02/20/25 14:30 Dose: 3 ml Documented By: SALLY Sodium Zirconium Cyclosilicate (Sodium Zirconium Cyclosilicate 10 Gm Powd.Pack) 10 gm PO MOWEFR@0900 [facility] Last Admin: 02/20/25 09:21 Dose: 10 gm Documented By: SALLY Trazodone HCl (Trazodone Hcl 100 Mg Tablet) 100 mg PO BEDTIME PRN PRN Reason: Insomnia Last Admin: 02/19/25 00:05 Dose: 100 mg Documented By: WONG Labs 02/18/25 08:20 02/18/25 08:20 Labs: Laboratory Results - last 24 hr 02/19/25 02/20/25 02/20/25 21:01 08:21 11:31 POC Glucose 167 H 141 H 158 H 02/20/25 16:53 POC Glucose 128 H Assessment and Plan (1) Hypertensive urgency: Status: Acute (2) Essential hypertension: Status: Acute (3) Heart failure with preserved ejection fraction: Status: Acute (4) Volume overload: Status: Acute (5) Hyponatremia: Status: Acute (6) Rectal prolapse: Status: Acute (7) ESRD (end stage renal disease) on dialysis: Status: Chronic (8) CKD (chronic kidney disease): Status: Acute (9) Dialysis patient, noncompliant: Status: Chronic (10) Acute hyperkalemia: Status: Acute (11) Leukocytosis: Status: Acute (12) Reactive airway disease: Status: Acute (13) Pneumonia: Status: Acute (14) Acute respiratory failure with hypoxia: Status: Acute (15) Atelectasis: Status: Acute Plan 69-year-old Telugu-speaking female with a past medical history significant for pulmonary hypertension, asthma/COPD overlap, hypertension, diabetes, ESRD TTS, HFpEF, hypertrophic cardiomyopathy, prolapsed rectum and recent admission at [facility] for hypertensive emergency with flash pulmonary edema placed on BiPAP with dialysis, who presented to the ED due to hypoxia and dyspnea, admitted for multifactorial acute hypoxic respiratory failure. Multifactorial acute hypoxic respiratory failure - Hospital-acquired pneumonia with mucus plugging - Cardiorenal syndrome type 4 in the setting of ESRD HD TTS - Acute CHFpEF exacerbation in the setting of flash pulmonary edema 2/2 hypertensive emergency likely multifactorial: fluid overloaded from ESRD and possible pneumonia pulmonology consulted, feels CT more indicative of pulmonary edema rather than pneumonia; no need for inpatient bronch pulmonology question need for antibiotics, but will continue ceftriaxone and doxycycline given productive cough and SOB x2 weeks Patient has also had multiple episodes of hypertensive urgency/emergency with subsequent pulmonary edema and respiratory distress. follow up with pulmonology in [address] of chest and need for possible outpatient bronchoscopy no longer on supplemental O2 post-dialysis Unfortunately, the patient is aneuric, and diuresis with loop diuretics has been ineffective PLAN - cardiac telemetry - BiPAP nightly - monitor BMP and volume status - caution with patient during hypovolemic states; given tendency for hypotension and tachycardia leading to flash pulmonary edema - nephrology following, continue HD TTS - Pulmonary reccs greatly appreciated - address HTN for goal blood pressure 120-140 systolic Type 2 demand NSTEMI In the setting of acute CHF exacerbation and hypertensive emergency ECG unremarkable Troponin flat - persistent elevation likely 2/2 ESRD - monitor on tele ESRD on HD TTS - follows with [facility] - received dialysis TTS Rectal prolapse - ongoing x2 years - multiple previous surgical attempts has been postponed due a variety of different ongoing medical issues - general surgery consulted, recommend high-fiber diet and stool softeners to avoid straining with bowel movements - outpatient surgical repair once pt medically stable T2 DM Diabetic neuropathy - likely diabetic neuropathy - started on gabapentin 100 mg t.i.d. with improvement, can likely continue at COPD - duonebs PRN QUALITY METRICS - VTE: Heparin 5000 t.i.d. SQ - CODE STATUS: Full code - DIET: Renal Total time managing care of this patient today: 35 minutes. Quality Stroke Does the patient have a stroke diagnosis?: No VTE Prior VTE?: No VTE Risk Level:: Medical - moderate - high VTE Device Contraindication: Treatment Not Indicated VTE Drug Contraindication: N/A - Med Ordered
[2025-02-20 20:06] LABS: Glucose, Whole Blood 180 mg/dL (60-115)
--- NOTE | 2025-02-20 23:19 | P.PNNP_ITS ---
Subjective Subjective Date of Service: 02/20/25 Interval history: Events noted Cont SOB Physical Exam 2 Vital Signs: Vital Signs: Last Vital Signs Temp 97.8 F 02/20/25 19:42 Pulse 76 02/20/25 20:41 Resp 18 02/20/25 20:41 BP 142/63 H 02/20/25 19:42 Pulse Ox 92 02/20/25 19:42 O2 Del Method Nasal Cannula 02/20/25 19:42 O2 Flow Rate 2 02/20/25 19:42 Oxygen Flow Rate 4 02/13/25 15:02 BMI result Body Mass Index 26.2 Const: General: comfortable, no acute distress, alert and awake; No confusion Orientation/consciousness: patient oriented x3 and No confusion Eyes: Sclerae: sclerae normal EOM: EOMs intact bilaterally Neck: Neck: Yes no lymphadenopathy, Yes trachea midline and Yes supple Resp: Effort & Inspection: normal respiratory effort and no respiratory distress Auscultation: crackles (Mild bilateral) Cardio: Rate: regular rate Rhythm: regular rhythm Heart sounds: no gallops, no murmurs and no rubs GI: Other: Nurse, caridad served as my reed worker Palpation (GI): Soft to palpation and Other GI palpation findings present ( Nontender) Auscultation: normal bowel sounds Rectal Exam - Female: d ecreased sphincter tone and Rectal prolapse (reduced at this point, tissue viable, well perfused) Neuro: General: patient oriented x3 and No confusion Extrem: General: No clubbing, No cyanosis and Yes edema (1+ bilateral) Objective Data Labs 02/18/25 08:20 02/18/25 08:20 Labs: Laboratory Results - last 24 hr 02/20/25 02/20/25 02/20/25 08:21 11:31 16:53 POC Glucose 141 H 158 H 128 H 02/20/25 20:02 POC Glucose 180 H Microbiology Microbiology Results: Microbiology 02/13/25 17:47 Blood - Venous Blood Culture - Final No growth after 5 days. 02/13/25 17:47 Blood - Venous Blood Culture - Final No growth after 5 days. Procedures Date of Service Date of Service: 02/20/25 Assessment & Plan Assessment and plan (1) Hypertensive urgency: Status: Acute (2) Essential hypertension: Status: Acute (3) Heart failure with preserved ejection fraction: Status: Acute (4) Volume overload: Status: Acute (5) Elevated troponin: Status: Acute (6) Hemorrhoids that prolapse with straining, but retract spontaneously: Status: Acute (7) Rectal prolapse: Status: Acute (8) ESRD (end stage renal disease) on dialysis: Status: Chronic (9) Acute hyperkalemia: Status: Acute (10) Acute respiratory failure with hypoxia: Status: Acute (11) Shortness of breath: Status: Acute (12) Pneumonia: Status: Acute Plan 69-year-old Tamazight-speaking female with a past medical history significant for pulmonary hypertension, asthma/COPD overlap, hypertension, diabetes, ESRD TTS, HFpEF, hypertrophic cardiomyopathy, prolapsed rectum and recent admission at [facility] for hypertensive emergency with flash pulmonary edema placed on BiPAP with dialysis, who presented to the ED due to hypoxia and dyspnea. ESRD: hd TTS HyperK: lokelma for K > 5.2 SOB: still not resolved REC: cont hD TTS, low K diet and Lokelma prn for K > 5.2 Will follow w team - Time Spent With Patient Time: Total time managing care of this patient today ____ minutes. Progress Note: Quality Stroke Does the patient have a stroke diagnosis?: No
[2025-02-21] VITALS (9 sets, daily range): BP systolic 133–156; BP diastolic 63–69; PULSE 70–76; RESP 18–20; TEMP 36.2–36.8; O2SAT 92–100
[2025-02-21 07:40] LABS: Glucose, Whole Blood 195 mg/dL (60-115)
[2025-02-21] MEDS: Buprenorphine/Naloxone 12/3 mg FILM 1 FILM SUBLINGUAL (07:40)
[2025-02-21] MEDS: Aspirin Enteric Coated 81 MG TABLET.DR PO (07:41)
[2025-02-21] MEDS: 0.9 % Sodium Chloride Flush 3 ML SYRINGE IVFLUSH ×3 (07:42→21:33)
[2025-02-21] MEDS: Nicotine 14 MG PATCH.TD24 TRANSDERMA (07:46)
[2025-02-21 12:30] LABS: Glucose, Whole Blood 169 mg/dL (60-115)
--- NOTE | 2025-02-21 15:55 | P.PNIM_ITS ---
Subjective Subjective Date of Service: 02/21/25 Interval History: No new issues currently. The patient has completed/on hemodialysis. Denies chest pain, palpitations, dizziness or diaphoresis or dyspnea Review of Systems Review of Systems: Yes all other systems are reviewed and are negative Physical Exam 2 Exam: Exam: General: A&O x3, oriented to time place person and situation, comfortable, no pain Cardiac: S1, S2 auscultated with no S3/4, no MRG. Well perfused. Respiratory: Decreased inspiratory and expiratory breath sounds bilaterally, at the bases. Bibasilar crepitations auscultated, with end expiratory wheezing in the mid and upper zones. No tripoding, peripheral or central cyanosis, no intercostal retractions. GI/ : No abdominal pain on palpation, no masses or distentions. MSK: Normal ambulation without pain at bony prominences or musculature Neurological: Normal neurological examination on overview, without obvious CN II-XII abnormalities. Vital Signs: Vital Signs: Last Vital Signs Temp 98.2 F 02/21/25 15:21 Pulse 76 02/21/25 15:21 Resp 18 02/21/25 15:21 BP 152/69 H 02/21/25 15:21 Pulse Ox 100 02/21/25 15:21 O2 Del Method Nasal Cannula 02/21/25 15:21 O2 Flow Rate 2 02/21/25 15:21 Oxygen Flow Rate 4 02/13/25 15:02 BMI result Body Mass Index 26.2 Objective Data Active Medications Acetaminophen (Acetaminophen 325 Mg Tablet) 650 mg PO Q6H PRN PRN Reason: Pain, Mild 1-3,fever,headache Last Admin: 02/21/25 07:49 Dose: 650 mg Documented By: WANG Albuterol Sulfate (Albuterol Sulfate 90 Mcg 8 Gm Inhaler) 2 puff INHALE Q4H PRN PRN Reason: Wheezing Amlodipine Besylate (Amlodipine Besylate 10 Mg Tablet) 10 mg PO DAILY [facility]; Protocol Last Admin: 02/21/25 07:41 Dose: 10 mg Documented By: WANG Aspirin (Aspirin Enteric Coated 81 Mg Tablet.) 81 mg PO DAILY [facility] Last Admin: 02/21/25 07:41 Dose: 81 mg Documented By: WANG Buprenorphine/Naloxone (Buprenorphine/Naloxone 12/3 Mg Film) 1 film SUBLINGUAL DAILY [facility] Last Admin: 02/21/25 07:40 Dose: 1 film Documented By: WANG Calcium Acetate (Calcium Acetate 667 Mg Capsule) 667 mg PO TIDWM [facility] Last Admin: 02/21/25 12:48 Dose: 667 mg Documented By: WANG Calcium Carbonate (Calcium Carbonate 750 Mg Tab.Chew) 750 mg PO Q4H PRN PRN Reason: Heartburn Carvedilol (Carvedilol 25 Mg Tablet) 25 mg PO BID [facility]; Protocol Last Admin: 02/21/25 07:42 Dose: 25 mg Documented By: WANG Ceftriaxone Sodium (Ceftriaxone Sodium 1 Gm Vial) 1 gm IVPUSH Q24H [facility] Last Admin: 02/21/25 12:48 Dose: 1 gm Documented By: WANG Clonidine (Clonidine 0.3 Mg Patch.Tdwk) 0.3 mg TRANSDERMA WE [facility]; Protocol Last Admin: 02/18/25 11:40 Dose: 0.3 mg Documented By: HENNA Dextrose (Dextrose 50 % 25 Gm/50 Ml Syringe) 25 gm IVPUSH Q15M PRN; Protocol PRN Reason: per Hypoglycemia Standing Ord. Docusate Sodium (Docusate Sodium 100 Mg Capsule) 100 mg PO BID [facility] Last Admin: 02/21/25 07:42 Dose: 100 mg Documented By: WANG Doxycycline Monohydrate (Doxycycline Monohydrate 100 Mg Capsule) 100 mg PO Q12H [facility] Last Admin: 02/21/25 12:48 Dose: 100 mg Documented By: WANG Gabapentin (Gabapentin 100 Mg Capsule) 100 mg PO TID [facility] Last Admin: 02/21/25 07:41 Dose: 100 mg Documented By: WANG Glucose (Glucose Gel 15 Gm Gel..Gram.) 15 gm PO Q15M PRN; Protocol PRN Reason: per Hypoglycemia Standing Ord. Heparin Sodium (Porcine) (Heparin Sodium,Porcine 5,000 Unit/Ml Vial) 5,000 unit SUBCUT Q12H [facility] Last Admin: 02/21/25 12:48 Dose: 5,000 unit Documented By: WANG Hydralazine HCl (Hydralazine Hcl 50 Mg Tablet) 100 mg PO TID [facility]; Protocol Last Admin: 02/21/25 07:40 Dose: 100 mg Documented By: WANG Insulin Human Lispro (Insulin Lispro 100 Unit/Ml 3 Ml Vial) 0 unit SUBCUT QIDACHS [facility]; Protocol Last Admin: 02/21/25 12:48 Dose: 2 unit Documented By: WANG Isosorbide Dinitrate (Isosorbide Dinitrate 10 Mg Tablet) 30 mg PO TID [facility]; Protocol Last Admin: 02/21/25 07:41 Dose: 30 mg Documented By: WANG Lactulose (Lactulose 20 Gm/30 Ml Solution) 10 gm PO DAILY PRN PRN Reason: Constipation Losartan Potassium (Losartan Potassium 50 Mg Tablet) 100 mg PO DAILY [facility]; Protocol Last Admin: 02/21/25 07:41 Dose: 100 mg Documented By: WANG Magnesium Hydroxide (Milk Of Magnesia 30 Ml Oral.Susp) 30 ml PO DAILY PRN PRN Reason: Constipation Melatonin (Melatonin 3 Mg Tablet) 6 mg PO BEDTIME PRN PRN Reason: Insomnia Last Admin: 02/18/25 21:05 Dose: 6 mg Documented By: WONG Mirtazapine (Mirtazapine 15 Mg Tablet) 30 mg PO BEDTIME [facility] Last Admin: 02/20/25 21:56 Dose: 30 mg Documented By: GENE Multivitamins/Vitamin C (Multivitamin Tablet) 1 tab PO DAILY [facility] Last Admin: 02/21/25 07:41 Dose: 1 tab Documented By: WANG Nicotine (Nicotine 14 Mg Patch.Td24) 14 mg TRANSDERMA DAILY [facility] Last Admin: 02/21/25 07:46 Dose: 14 mg Documented By: WANG Omeprazole (Omeprazole 20 Mg Capsule.Dr) 20 mg PO DAILY@0630 [facility] Last Admin: 02/21/25 05:43 Dose: 20 mg Documented By: GENE Ondansetron HCl (Ondansetron Hcl 4 Mg/2 Ml Vial) 4 mg IVPUSH Q8H PRN PRN Reason: Nausea and Vomiting Last Admin: 02/21/25 00:15 Dose: 4 mg Documented By: GENE Polyethylene Glycol (Polyethylene Glycol 3350 17 Gm Powd.Pack) 17 gm PO DAILY [facility] Last Admin: 02/21/25 07:46 Dose: Not Given Documented By: WANG Non-Admin Reason: Patient Refused Sodium Chloride (0.9 % Sodium Chloride Flush 3 Ml Syringe) 3 ml IVFLUSH QSHIFT [facility] Last Admin: 02/21/25 07:42 Dose: 3 ml Documented By: WANG Sodium Zirconium Cyclosilicate (Sodium Zirconium Cyclosilicate 10 Gm Powd.Pack) 10 gm PO MOWEFR@0900 [facility] Last Admin: 02/20/25 09:21 Dose: 10 gm Documented By: SALLY Trazodone HCl (Trazodone Hcl 100 Mg Tablet) 100 mg PO BEDTIME PRN PRN Reason: Insomnia Last Admin: 02/19/25 00:05 Dose: 100 mg Documented By: WONG Labs 02/18/25 08:20 02/18/25 08:20 Labs: Laboratory Results - last 24 hr 02/20/25 02/20/25 02/21/25 16:53 20:02 07:33 POC Glucose 128 H 180 H 195 H 02/21/25 12:26 POC Glucose 169 H Assessment and Plan (1) Hypertensive urgency: Status: Acute (2) Essential hypertension: Status: Acute (3) Heart failure with preserved ejection fraction: Status: Acute (4) Elevated troponin: Status: Acute (5) Volume overload: Status: Acute (6) Hyponatremia: Status: Acute (7) Hemorrhoids that prolapse with straining, but retract spontaneously: Status: Acute (8) Proctitis: Status: Acute (9) ESRD (end stage renal disease) on dialysis: Status: Chronic (10) CKD (chronic kidney disease): Status: Acute (11) Acute hyperkalemia: Status: Acute (12) Leukocytosis: Status: Acute (13) Anemia: Status: Chronic (14) Acute respiratory failure with hypoxia: Status: Acute (15) Reactive airway disease: Status: Acute Plan 69-year-old Micronesian-speaking female with a past medical history significant for pulmonary hypertension, asthma/COPD overlap, hypertension, diabetes, ESRD TTS, HFpEF, hypertrophic cardiomyopathy, prolapsed rectum and recent admission at [facility] for hypertensive emergency with flash pulmonary edema placed on BiPAP with dialysis, who presented to the ED due to hypoxia and dyspnea, admitted for multifactorial acute hypoxic respiratory failure. Multifactorial acute hypoxic respiratory failure - Hospital-acquired pneumonia with mucus plugging - Cardiorenal syndrome type 4 in the setting of ESRD HD TTS - Acute CHFpEF exacerbation in the setting of flash pulmonary edema 2/2 hypertensive emergency likely multifactorial: fluid overloaded from ESRD and possible pneumonia pulmonology consulted, feels CT more indicative of pulmonary edema rather than pneumonia; no need for inpatient bronch pulmonology question need for antibiotics, but will continue ceftriaxone and doxycycline given productive cough and SOB x2 weeks Patient has also had multiple episodes of hypertensive urgency/emergency with subsequent pulmonary edema and respiratory distress. follow up with pulmonology in [address] of chest and need for possible outpatient bronchoscopy no longer on supplemental O2 post-dialysis Unfortunately, the patient is aneuric, and diuresis with loop diuretics has been ineffective PLAN - cardiac telemetry - BiPAP nightly - monitor BMP and volume status - caution with patient during hypovolemic states; given tendency for hypotension and tachycardia leading to flash pulmonary edema - nephrology following, continue HD TTS - Pulmonary reccs greatly appreciated - address HTN for goal blood pressure 120-140 systolic Type 2 demand NSTEMI In the setting of acute CHF exacerbation and hypertensive emergency ECG unremarkable Troponin flat - persistent elevation likely 2/2 ESRD - monitor on tele ESRD on HD TTS - follows with [facility] - received dialysis TTS Rectal prolapse - ongoing x2 years - multiple previous surgical attempts has been postponed due a variety of different ongoing medical issues - general surgery consulted, recommend high-fiber diet and stool softeners to avoid straining with bowel movements - outpatient surgical repair once pt medically stable T2 DM Diabetic neuropathy - likely diabetic neuropathy - started on gabapentin 100 mg t.i.d. with improvement, can likely continue at COPD - duonebs PRN QUALITY METRICS - VTE: Heparin 5000 t.i.d. SQ - CODE STATUS: Full code - DIET: Renal Total time managing care of this patient today: 35 minutes. Quality Stroke Does the patient have a stroke diagnosis?: No VTE Prior VTE?: No VTE Risk Level:: Medical - moderate - high VTE Device Contraindication: Treatment Not Indicated VTE Drug Contraindication: N/A - Med Ordered
[2025-02-21 16:08] LABS: Glucose, Whole Blood 205 mg/dL (60-115)
[2025-02-21 20:10] LABS: Glucose, Whole Blood 159 mg/dL (60-115)
[2025-02-22] VITALS (8 sets, daily range): BP systolic 113–159; BP diastolic 58–72; PULSE 63–78; RESP 16–20; TEMP 36.3–36.7; O2SAT 93–100
[2025-02-22 07:18] LABS: Glucose, Whole Blood 104 mg/dL (60-115)
[2025-02-22] MEDS: Buprenorphine/Naloxone 12/3 mg FILM 1 FILM SUBLINGUAL (07:38)
[2025-02-22] MEDS: Aspirin Enteric Coated 81 MG TABLET.DR PO (07:38)
[2025-02-22] MEDS: Nicotine 14 MG PATCH.TD24 TRANSDERMA (07:38)
[2025-02-22] MEDS: 0.9 % Sodium Chloride Flush 3 ML SYRINGE IVFLUSH ×3 (07:39→22:25)
[2025-02-22 11:03] LABS: Glucose, Whole Blood 213 mg/dL (60-115)
--- NOTE | 2025-02-22 11:44 | HO.PM.IMPN ---
Subjective Subjective Date of Service: 02/22/25 Interval History: Overnight events. Patient slept well. She is a poor mood today. Eating and drinking. Stooling. Attending hemodialysis. Review of Systems Review of Systems: Yes all other systems are reviewed and are negative Physical Exam Exam: Exam: General: A&O x3, oriented to time place person and situation, comfortable, no pain Cardiac: S1, S2 auscultated with no S3/4, no MRG. Well perfused. Respiratory: Decreased inspiratory and expiratory breath sounds bilaterally, at the bases. Bibasilar crepitations auscultated, with end expiratory wheezing in the mid and upper zones. No tripoding, peripheral or central cyanosis, no intercostal retractions. GI/ : No abdominal pain on palpation, no masses or distentions. MSK: Normal ambulation without pain at bony prominences or musculature Neurological: Normal neurological examination on overview, without obvious CN II-XII abnormalities. Vital Signs: Vital Signs: Last Vital Signs Temp 97.5 F 02/22/25 10:56 Pulse 64 02/22/25 10:56 Resp 20 02/22/25 10:56 BP 113/58 L 02/22/25 10:56 Pulse Ox 95 02/22/25 10:56 O2 Del Method Room Air 02/22/25 10:56 O2 Flow Rate 3 02/22/25 03:27 Oxygen Flow Rate 4 02/13/25 15:02 BMI result Body Mass Index 26.2 Objective Data Active Medications Acetaminophen (Acetaminophen 325 Mg Tablet) 650 mg PO Q6H PRN PRN Reason: Pain, Mild 1-3,fever,headache Last Admin: 02/22/25 01:17 Dose: 650 mg Documented By: GENE Albuterol Sulfate (Albuterol Sulfate 90 Mcg 8 Gm Inhaler) 2 puff INHALE Q4H PRN PRN Reason: Wheezing Amlodipine Besylate (Amlodipine Besylate 10 Mg Tablet) 10 mg PO DAILY [facility]; Protocol Last Admin: 02/22/25 07:39 Dose: 10 mg Documented By: WANG Aspirin (Aspirin Enteric Coated 81 Mg Tablet.) 81 mg PO DAILY [facility] Last Admin: 02/22/25 07:38 Dose: 81 mg Documented By: WANG Buprenorphine/Naloxone (Buprenorphine/Naloxone 12/3 Mg Film) 1 film SUBLINGUAL DAILY [facility] Last Admin: 02/22/25 07:38 Dose: 1 film Documented By: WANG Calcium Acetate (Calcium Acetate 667 Mg Capsule) 667 mg PO TIDWM [facility] Last Admin: 02/22/25 11:07 Dose: 667 mg Documented By: WANG Calcium Carbonate (Calcium Carbonate 750 Mg Tab.Chew) 750 mg PO Q4H PRN PRN Reason: Heartburn Carvedilol (Carvedilol 25 Mg Tablet) 25 mg PO BID [facility]; Protocol Last Admin: 02/22/25 07:38 Dose: 25 mg Documented By: WANG Ceftriaxone Sodium (Ceftriaxone Sodium 1 Gm Vial) 1 gm IVPUSH Q24H [facility] Last Admin: 02/21/25 12:48 Dose: 1 gm Documented By: WANG Clonidine (Clonidine 0.3 Mg Patch.Tdwk) 0.3 mg TRANSDERMA WE [facility]; Protocol Last Admin: 02/18/25 11:40 Dose: 0.3 mg Documented By: COLTFALaron Dextrose (Dextrose 50 % 25 Gm/50 Ml Syringe) 25 gm IVPUSH Q15M PRN; Protocol PRN Reason: per Hypoglycemia Standing Ord. Docusate Sodium (Docusate Sodium 100 Mg Capsule) 100 mg PO BID [facility] Last Admin: 02/22/25 07:38 Dose: 100 mg Documented By: WANG Doxycycline Monohydrate (Doxycycline Monohydrate 100 Mg Capsule) 100 mg PO Q12H [facility] Last Admin: 02/22/25 11:07 Dose: 100 mg Documented By: WANG Gabapentin (Gabapentin 100 Mg Capsule) 100 mg PO TID [facility] Last Admin: 02/22/25 07:39 Dose: 100 mg Documented By: WANG Glucose (Glucose Gel 15 Gm Gel..Gram.) 15 gm PO Q15M PRN; Protocol PRN Reason: per Hypoglycemia Standing Ord. Heparin Sodium (Porcine) (Heparin Sodium,Porcine 5,000 Unit/Ml Vial) 5,000 unit SUBCUT Q12H [facility] Last Admin: 02/22/25 11:07 Dose: 5,000 unit Documented By: WANG Hydralazine HCl (Hydralazine Hcl 50 Mg Tablet) 100 mg PO TID [facility]; Protocol Last Admin: 02/22/25 07:38 Dose: 100 mg Documented By: WANG Insulin Human Lispro (Insulin Lispro 100 Unit/Ml 3 Ml Vial) 0 unit SUBCUT QIDACHS [facility]; Protocol Last Admin: 02/22/25 11:07 Dose: 4 unit Documented By: WANG Isosorbide Dinitrate (Isosorbide Dinitrate 10 Mg Tablet) 30 mg PO TID [facility]; Protocol Last Admin: 02/22/25 07:39 Dose: 30 mg Documented By: WANG Lactulose (Lactulose 20 Gm/30 Ml Solution) 10 gm PO DAILY PRN PRN Reason: Constipation Losartan Potassium (Losartan Potassium 50 Mg Tablet) 100 mg PO DAILY [facility]; Protocol Last Admin: 02/22/25 07:39 Dose: 100 mg Documented By: WANG Magnesium Hydroxide (Milk Of Magnesia 30 Ml Oral.Susp) 30 ml PO DAILY PRN PRN Reason: Constipation Melatonin (Melatonin 3 Mg Tablet) 6 mg PO BEDTIME PRN PRN Reason: Insomnia Last Admin: 02/18/25 21:05 Dose: 6 mg Documented By: WONG Mirtazapine (Mirtazapine 15 Mg Tablet) 30 mg PO BEDTIME [facility] Last Admin: 02/21/25 21:33 Dose: 30 mg Documented By: GENE Multivitamins/Vitamin C (Multivitamin Tablet) 1 tab PO DAILY [facility] Last Admin: 02/22/25 07:39 Dose: 1 tab Documented By: WANG Nicotine (Nicotine 14 Mg Patch.Td24) 14 mg TRANSDERMA DAILY [facility] Last Admin: 02/22/25 07:38 Dose: 14 mg Documented By: WANG Omeprazole (Omeprazole 20 Mg Capsule.Dr) 20 mg PO DAILY@0630 [facility] Last Admin: 02/22/25 06:16 Dose: 20 mg Documented By: GENE Ondansetron HCl (Ondansetron Hcl 4 Mg/2 Ml Vial) 4 mg IVPUSH Q8H PRN PRN Reason: Nausea and Vomiting Last Admin: 02/21/25 00:15 Dose: 4 mg Documented By: GENE Polyethylene Glycol (Polyethylene Glycol 3350 17 Gm Powd.Pack) 17 gm PO DAILY [facility] Last Admin: 02/22/25 07:38 Dose: 17 gm Documented By: WANG Sodium Chloride (0.9 % Sodium Chloride Flush 3 Ml Syringe) 3 ml IVFLUSH QSHIFT [facility] Last Admin: 02/22/25 07:39 Dose: 3 ml Documented By: WANG Sodium Zirconium Cyclosilicate (Sodium Zirconium Cyclosilicate 10 Gm Powd.Pack) 10 gm PO MOWEFR@0900 [facility] Last Admin: 02/20/25 09:21 Dose: 10 gm Documented By: SALLY Trazodone HCl (Trazodone Hcl 100 Mg Tablet) 100 mg PO BEDTIME PRN PRN Reason: Insomnia Last Admin: 02/19/25 00:05 Dose: 100 mg Documented By: HIPOLITOCOTAMIR Labs 02/18/25 08:20 02/18/25 08:20 Labs: Laboratory Results - last 24 hr 02/21/25 02/21/25 02/21/25 12:26 16:04 20:01 POC Glucose 169 H 205 H 159 H 02/22/25 02/22/25 07:05 10:59 POC Glucose 104 213 H Assessment and Plan (1) Hypertensive urgency: Status: Acute (2) Essential hypertension: Status: Acute (3) Heart failure with preserved ejection fraction: Status: Acute (4) Elevated troponin: Status: Acute (5) Volume overload: Status: Acute (6) Hyponatremia: Status: Acute (7) Rectal prolapse: Status: Acute (8) Hemorrhoids that prolapse with straining, but retract spontaneously: Status: Acute (9) Proctitis: Status: Acute (10) ESRD (end stage renal disease) on dialysis: Status: Chronic (11) CKD (chronic kidney disease): Status: Acute (12) Elevated serum immunoglobulin free light chains: Status: Acute (13) Leukocytosis: Status: Acute (14) Pneumonia: Status: Acute (15) Acute respiratory failure with hypoxia: Status: Acute (16) Reactive airway disease: Status: Acute Plan 69-year-old Hungarian-speaking female with a past medical history significant for pulmonary hypertension, asthma/COPD overlap, hypertension, diabetes, ESRD TTS, HFpEF, hypertrophic cardiomyopathy, prolapsed rectum and recent admission at [facility] for hypertensive emergency with flash pulmonary edema placed on BiPAP with dialysis, who presented to the ED due to hypoxia and dyspnea, admitted for multifactorial acute hypoxic respiratory failure. Multifactorial acute hypoxic respiratory failure - Hospital-acquired pneumonia with mucus plugging - Cardiorenal syndrome type 4 in the setting of ESRD HD TTS - Acute CHFpEF exacerbation in the setting of flash pulmonary edema 2/2 hypertensive emergency likely multifactorial: fluid overloaded from ESRD and possible pneumonia pulmonology consulted, feels CT more indicative of pulmonary edema rather than pneumonia; no need for inpatient bronch pulmonology question need for antibiotics, but will continue ceftriaxone and doxycycline given productive cough and SOB x2 weeks Patient has also had multiple episodes of hypertensive urgency/emergency with subsequent pulmonary edema and respiratory distress. follow up with pulmonology in [address] of chest and need for possible outpatient bronchoscopy no longer on supplemental O2 post-dialysis Unfortunately, the patient is aneuric, and diuresis with loop diuretics has been ineffective Had been receiving HD regularly with net negative sessions. PLAN - cardiac telemetry - BiPAP nightly - monitor BMP and volume status - caution with patient during hypovolemic states; given tendency for hypotension and tachycardia leading to flash pulmonary edema - nephrology following, continue HD TTS - Pulmonary reccs greatly appreciated - address HTN for goal blood pressure 120-140 systolic Type 2 demand NSTEMI In the setting of acute CHF exacerbation and hypertensive emergency ECG unremarkable Troponin flat - persistent elevation likely 2/2 ESRD - monitor on tele ESRD on HD TTS - follows with [facility] - received dialysis TTS Rectal prolapse - ongoing x2 years - multiple previous surgical attempts has been postponed due a variety of different ongoing medical issues - general surgery consulted, recommend high-fiber diet and stool softeners to avoid straining with bowel movements - outpatient surgical repair once pt medically stable T2 DM Diabetic neuropathy - likely diabetic neuropathy - started on gabapentin 100 mg t.i.d. with improvement, can likely continue at COPD - duonebs PRN QUALITY METRICS - VTE: Heparin 5000 t.i.d. SQ - CODE STATUS: Full code - DIET: Renal Total time managing care of this patient today: 35 minutes. Quality Stroke Does the patient have a stroke diagnosis?: No VTE Prior VTE?: No VTE Risk Level:: Medical - moderate - high VTE Device Contraindication: Treatment Not Indicated VTE Drug Contraindication: N/A - Med Ordered
[2025-02-22 16:48] LABS: Glucose, Whole Blood 177 mg/dL (60-115)
[2025-02-22 20:50] LABS: Glucose, Whole Blood 141 mg/dL (60-115)
[2025-02-23] VITALS (10 sets, daily range): BP systolic 126–164; BP diastolic 57–67; PULSE 61–70; RESP 16–18; TEMP 35.8–36.9; O2SAT 92–98
[2025-02-23 07:37] LABS: Glucose, Whole Blood 141 mg/dL (60-115)
[2025-02-23] MEDS: Aspirin Enteric Coated 81 MG TABLET.DR PO (08:51)
[2025-02-23] MEDS: Nicotine 14 MG PATCH.TD24 TRANSDERMA (08:52)
[2025-02-23] MEDS: 0.9 % Sodium Chloride Flush 3 ML SYRINGE IVFLUSH ×2 (08:53→16:13)
[2025-02-23] MEDS: Buprenorphine/Naloxone 12/3 mg FILM 1 FILM SUBLINGUAL (08:54)
[2025-02-23 11:53] LABS: Glucose, Whole Blood 176 mg/dL (60-115)
--- NOTE | 2025-02-23 12:27 | MHC.CM.PN ---
Addendum entered by Quynh Patrick 02/24/25 08:15: LATE ENTRY FOR 02/23. [facility] RESCINDED THEIR BED OFFER FOR STR. STR REFERRAL EXPANDED IN [facility], NO CURRENT STR BED OFFERS. THIS CM MET WITH PT WITH THE LUG LOADER TO UPDATE HER ON [facility] NO LONGER HAVING A STR BED FOR HER. PT STATES SHE WANTS TO GO HOME WITH SERVICES INSTEAD. HOSPITALIST UPDATED. Addendum entered by Quynh Patrick 02/23/25 14:44: THIS CM MET WITH PT WITH THE LUG LOADER TO DISCUSS STR BED OFFER FROM [facility]. PT ACCEPTS THE BED OFFER, THIS CM REQUESTED THEY INITIATE INSURANCE AUTH. Original Note: EMR REVIEWED AND PER MD ROUNDS, PT IS MEDICALLY CLEARED FOR DISCHARGE TO STR. THIS CM MET WITH PT WITH THE ASSISTANCE OF A LUG LOADER TO DISCUSS DISCHARGE PLAN. PT IS IN AGREEMENT WITH GOING TO STR, [facility] HAD OFFERED PT A BED, PT ACCEPTED BED OFFER. THIS CM REQUESTED THEY GO FOR AUTH. [facility] THEN SAID THEY GAVE THEIR LAST FEMALE BED TO SOMEONE ELSE. STILL AWAITING STR BED OFFER, THEN WILL REVIEW WITH PT.
--- NOTE | 2025-02-23 15:52 | P.PNIM_ITS ---
Subjective Subjective Date of Service: 02/23/25 Interval History: This history was taken in Lithuanian from the patient. No dyspnea Dialysis as per usual schedule [facility] Review of Systems Review of Systems: Yes all other systems are reviewed and are negative Physical Exam 2 Vital Signs: Vital Signs: Last Vital Signs Temp 97.2 F 02/23/25 15:24 Pulse 62 02/23/25 15:24 Resp 18 02/23/25 15:24 BP 144/65 H 02/23/25 15:24 Pulse Ox 98 02/23/25 15:24 O2 Del Method Room Air 02/23/25 15:24 O2 Flow Rate 1 02/23/25 11:28 Oxygen Flow Rate 4 02/13/25 15:02 BMI result Body Mass Index 26.2 Gen: in no acute distress HEENT: sclera anicteric, moist mucus membranes Neck: supple Lungs: clear to auscultation bilaterally Heart: regular rate and rhythm, no murmurs Abd: soft, non-tender, non-distended Ext: no edema Skin: warm/well-perfused Neuro: alert and oriented x3, no focal findings Psych: appropriate affect Objective Data Active Medications Acetaminophen (Acetaminophen 325 Mg Tablet) 650 mg PO Q6H PRN PRN Reason: Pain, Mild 1-3,fever,headache Last Admin: 02/23/25 09:18 Dose: 650 mg Documented By: NANI Albuterol Sulfate (Albuterol Sulfate 90 Mcg 8 Gm Inhaler) 2 puff INHALE Q4H PRN PRN Reason: Wheezing Amlodipine Besylate (Amlodipine Besylate 10 Mg Tablet) 10 mg PO DAILY REPLACED BY [facility]; Protocol Last Admin: 02/23/25 08:51 Dose: 10 mg Documented By: NANI Aspirin (Aspirin Enteric Coated 81 Mg Tablet.) 81 mg PO DAILY REPLACED BY [facility] Last Admin: 02/23/25 08:51 Dose: 81 mg Documented By: NANI Buprenorphine/Naloxone (Buprenorphine/Naloxone 12/3 Mg Film) 1 film SUBLINGUAL DAILY REPLACED BY [facility] Last Admin: 02/23/25 08:54 Dose: 1 film Documented By: NANI Calcium Acetate (Calcium Acetate 667 Mg Capsule) 667 mg PO TIDWM REPLACED BY [facility] Last Admin: 02/23/25 12:49 Dose: 667 mg Documented By: NANI Calcium Carbonate (Calcium Carbonate 750 Mg Tab.Chew) 750 mg PO Q4H PRN PRN Reason: Heartburn Carvedilol (Carvedilol 25 Mg Tablet) 25 mg PO BID REPLACED BY [facility]; Protocol Last Admin: 02/23/25 08:50 Dose: 25 mg Documented By: NANI Ceftriaxone Sodium (Ceftriaxone Sodium 1 Gm Vial) 1 gm IVPUSH Q24H REPLACED BY [facility] Last Admin: 02/23/25 15:21 Dose: 1 gm Documented By: NANI Clonidine (Clonidine 0.3 Mg Patch.Tdwk) 0.3 mg TRANSDERMA WE REPLACED BY [facility]; Protocol Last Admin: 02/18/25 11:40 Dose: 0.3 mg Documented By: SOFFALaron Dextrose (Dextrose 50 % 25 Gm/50 Ml Syringe) 25 gm IVPUSH Q15M PRN; Protocol PRN Reason: per Hypoglycemia Standing Ord. Docusate Sodium (Docusate Sodium 100 Mg Capsule) 100 mg PO BID REPLACED BY [facility] Last Admin: 02/23/25 08:51 Dose: 100 mg Documented By: NANI Doxycycline Monohydrate (Doxycycline Monohydrate 100 Mg Capsule) 100 mg PO Q12H REPLACED BY [facility] Last Admin: 02/23/25 12:49 Dose: 100 mg Documented By: NANI Gabapentin (Gabapentin 100 Mg Capsule) 100 mg PO TID REPLACED BY [facility] Last Admin: 02/23/25 15:21 Dose: 100 mg Documented By: NANI Glucose (Glucose Gel 15 Gm Gel..Gram.) 15 gm PO Q15M PRN; Protocol PRN Reason: per Hypoglycemia Standing Ord. Heparin Sodium (Porcine) (Heparin Sodium,Porcine 5,000 Unit/Ml Vial) 5,000 unit SUBCUT Q12H REPLACED BY [facility] Last Admin: 02/23/25 12:48 Dose: 5,000 unit Documented By: NANI Hydralazine HCl (Hydralazine Hcl 50 Mg Tablet) 100 mg PO TID REPLACED BY [facility]; Protocol Last Admin: 02/23/25 15:21 Dose: 100 mg Documented By: NANI Insulin Human Lispro (Insulin Lispro 100 Unit/Ml 3 Ml Vial) 0 unit SUBCUT QIDACHS REPLACED BY [facility]; Protocol Last Admin: 02/23/25 12:49 Dose: 2 unit Documented By: NANI Isosorbide Dinitrate (Isosorbide Dinitrate 10 Mg Tablet) 30 mg PO TID REPLACED BY [facility]; Protocol Last Admin: 02/23/25 15:21 Dose: 30 mg Documented By: NANI Lactulose (Lactulose 20 Gm/30 Ml Solution) 10 gm PO DAILY PRN PRN Reason: Constipation Losartan Potassium (Losartan Potassium 50 Mg Tablet) 100 mg PO DAILY REPLACED BY [facility]; Protocol Last Admin: 02/23/25 08:51 Dose: 100 mg Documented By: NANI Magnesium Hydroxide (Milk Of Magnesia 30 Ml Oral.Susp) 30 ml PO DAILY PRN PRN Reason: Constipation Melatonin (Melatonin 3 Mg Tablet) 6 mg PO BEDTIME PRN PRN Reason: Insomnia Last Admin: 02/18/25 21:05 Dose: 6 mg Documented By: WONG Mirtazapine (Mirtazapine 15 Mg Tablet) 30 mg PO BEDTIME REPLACED BY [facility] Last Admin: 02/22/25 22:24 Dose: 30 mg Documented By: GENE Multivitamins/Vitamin C (Multivitamin Tablet) 1 tab PO DAILY REPLACED BY [facility] Last Admin: 02/23/25 08:51 Dose: 1 tab Documented By: NANI Nicotine (Nicotine 14 Mg Patch.Td24) 14 mg TRANSDERMA DAILY REPLACED BY [facility] Last Admin: 02/23/25 08:52 Dose: 14 mg Documented By: NANI Omeprazole (Omeprazole 20 Mg Capsule.Dr) 20 mg PO DAILY@0630 REPLACED BY [facility] Last Admin: 02/23/25 06:43 Dose: 20 mg Documented By: KELSI Ondansetron HCl (Ondansetron Hcl 4 Mg/2 Ml Vial) 4 mg IVPUSH Q8H PRN PRN Reason: Nausea and Vomiting Last Admin: 02/23/25 09:18 Dose: 4 mg Documented By: NANI Polyethylene Glycol (Polyethylene Glycol 3350 17 Gm Powd.Pack) 17 gm PO DAILY REPLACED BY [facility] Last Admin: 02/23/25 08:54 Dose: 17 gm Documented By: NANI Sodium Chloride (0.9 % Sodium Chloride Flush 3 Ml Syringe) 3 ml IVFLUSH QSHIFT REPLACED BY [facility] Last Admin: 02/23/25 08:53 Dose: 3 ml Documented By: NANI Sodium Zirconium Cyclosilicate (Sodium Zirconium Cyclosilicate 10 Gm Powd.Pack) 10 gm PO MOWEFR@0900 REPLACED BY [facility] Last Admin: 02/23/25 08:54 Dose: 10 gm Documented By: NANI Trazodone HCl (Trazodone Hcl 100 Mg Tablet) 100 mg PO BEDTIME PRN PRN Reason: Insomnia Last Admin: 02/19/25 00:05 Dose: 100 mg Documented By: WONG Labs 02/18/25 08:20 02/18/25 08:20 Labs: Laboratory Results - last 24 hr 02/22/25 02/22/25 02/23/25 16:43 20:41 07:17 POC Glucose 177 H 141 H 141 H 02/23/25 11:38 POC Glucose 176 H Assessment and Plan (1) Hypertensive urgency: Status: Acute (2) Essential hypertension: Status: Acute (3) Heart failure with preserved ejection fraction: Status: Acute (4) Elevated troponin: Status: Acute (5) Volume overload: Status: Acute (6) Hyponatremia: Status: Acute (7) Rectal prolapse: Status: Acute (8) Hemorrhoids that prolapse with straining, but retract spontaneously: Status: Acute (9) Proctitis: Status: Acute (10) ESRD (end stage renal disease) on dialysis: Status: Chronic (11) CKD (chronic kidney disease): Status: Acute (12) Elevated serum immunoglobulin free light chains: Status: Acute (13) Leukocytosis: Status: Acute (14) Pneumonia: Status: Acute (15) Acute respiratory failure with hypoxia: Status: Acute (16) Reactive airway disease: Status: Acute Plan d11, 69yo F with pulm HTN, asthma/COPD overlap, HTN, DM2, ESRD on HD [facility], HFpEF, HOCM, rectal prolpase recent admission to [facility] for HTN emergency with flash pulmonary edema treated with BiPAP + HD presented with hypoxia + dyspnea, admitted for pneumonia/fluid overload acute hypoxic respiratory failure hospital-acquired pneumonia with mucos plugging cardiorenal syndrome acute/chronic HFpEF HTN urgency - complete ceftriaxone + doxycycline 02/14-02/23 - per Pulm no bronch needed but f/u with Pulm in 1 mo as outpt for repeat CT chest, possible outpt broncoscopy - supplemental O2, wean as tolerated - HD [facility] - BiPAP at night - Nephrology following NSTEMI type 2/demand - due to acute CHF, HTN urgency ESRD on HD - Lokelma, Ca acetate, HD TuThSa; followed by [facility] HTN - amlodipine, carvedilol, clonidine, hydralazine, Isordil, losartan rectal prolapse, chronic - Gen Surg consulted, recommend high-fiber diet and stool softeners to avoid straining with bowel movements, outpatient surgical repair once pt medically stable DM2 with neuropathy - gabapentin, crescencio-dose lispro mood disorder - mirtazapine COPD - prn albuterol VTE ppx: UFH dispo: STR In my clinical judgment, the patient requires continued inpatient hospitalization for the following reasons: placement Total time managing care of this patient today: 35 minutes. Quality Stroke Does the patient have a stroke diagnosis?: No VTE Prior VTE?: No VTE Risk Level:: Medical - moderate - high VTE Device Contraindication: Treatment Not Indicated VTE Drug Contraindication: N/A - Med Ordered
[2025-02-23 15:57] LABS: Glucose, Whole Blood 134 mg/dL (60-115)
[2025-02-23 20:29] LABS: Glucose, Whole Blood 132 mg/dL (60-115)
--- NOTE | 2025-02-23 21:06 | PM.PNNEP ---
Subjective Subjective Date of Service: 02/23/25 Interval history: Seen and examined,events noted Physical Exam Vital Signs: Vital Signs: Last Vital Signs Temp 98.5 F 02/23/25 19:17 Pulse 70 02/23/25 20:57 Resp 18 02/23/25 19:17 BP 129/63 02/23/25 20:57 Pulse Ox 93 02/23/25 19:17 O2 Del Method Room Air 02/23/25 19:17 O2 Flow Rate 1 02/23/25 11:28 Oxygen Flow Rate 4 02/13/25 15:02 BMI result Body Mass Index 26.2 Const: General: comfortable, no acute distress, alert and awake; No confusion Orientation/consciousness: patient oriented x3 and No confusion Eyes: Sclerae: sclerae normal EOM: EOMs intact bilaterally Neck: Neck: Yes no lymphadenopathy, Yes trachea midline and Yes supple Resp: Effort & Inspection: normal respiratory effort and no respiratory distress Auscultation: crackles (Mild bilateral) Cardio: Rate: regular rate Rhythm: regular rhythm Heart sounds: no gallops, no murmurs and no rubs GI: Other: Nurse, caridad served as my machine binder stripper Palpation (GI): Soft to palpation and Other GI palpation findings present ( Nontender) Auscultation: normal bowel sounds Rectal Exam - Female: decreased sphincter tone and Rectal prolapse (reduced at this point, tissue viable, well perfused) Neuro: General: patient oriented x3 and No confusion Extrem: General: No clubbing, No cyanosis and Yes edema (1+ bilateral) Objective Data Labs 02/18/25 08:20 02/18/25 08:20 Labs: Laboratory Results - last 24 hr 02/23/25 02/23/25 02/23/25 07:17 11:38 15:46 POC Glucose 141 H 176 H 134 H 02/23/25 20:26 POC Glucose 132 H Microbiology Microbiology Results: Microbiology 02/13/25 17:47 Blood - Venous Blood Culture - Final No growth after 5 days. 02/13/25 17:47 Blood - Venous Blood Culture - Final No growth after 5 days. Procedures Date of Service Date of Service: 02/23/25 Assessment & Plan Assessment and plan (1) Hypertensive urgency: Status: Acute (2) Essential hypertension: Status: Acute (3) Heart failure with preserved ejection fraction: Status: Acute (4) Volume overload: Status: Acute (5) Elevated troponin: Status: Acute (6) Hemorrhoids that prolapse with straining, but retract spontaneously: Status: Acute (7) Rectal prolapse: Status: Acute (8) ESRD (end stage renal disease) on dialysis: Status: Chronic (9) Acute hyperkalemia: Status: Acute (10) Acute respiratory failure with hypoxia: Status: Acute (11) Shortness of breath: Status: Acute (12) Pneumonia: Status: Acute Plan 69-year-old Icelandic-speaking female with a past medical history significant for pulmonary hypertension, asthma/COPD overlap, hypertension, diabetes, ESRD TTS, HFpEF, hypertrophic cardiomyopathy, prolapsed rectum and recent admission at [facility] for hypertensive emergency with flash pulmonary edema placed on BiPAP with dialysis, who presented to the ED due to hypoxia and dyspnea. ESRD: hd TTS HyperK: lokelma for K > 5.2 SOB: still not resolved REC: cont hD TTS, low K diet and Lokelma prn for K > 5.2; recheck labs in am Will follow w team Time Spent With Patient Time: Total time managing care of this patient today ____ minutes. Progress Note: Quality Stroke Does the patient have a stroke diagnosis?: No
[2025-02-24] MEDS: 0.9 % Sodium Chloride Flush 3 ML SYRINGE IVFLUSH ×2 (01:00→07:35)
[2025-02-24 03:15] VITALS: BP 146/91; PULSE 63; RESP 16; TEMP 36.5; O2SAT 95
[2025-02-24 06:58] LABS: Glucose, Whole Blood 136 mg/dL (60-115)
[2025-02-24 07:07] VITALS: BP 162/69; PULSE 57; RESP 18; TEMP 36.4; O2SAT 94
[2025-02-24] MEDS: Nicotine 14 MG PATCH.TD24 TRANSDERMA (07:44)
[2025-02-24] MEDS: Aspirin Enteric Coated 81 MG TABLET.DR PO (07:53)
[2025-02-24] MEDS: Buprenorphine/Naloxone 12/3 mg FILM 1 FILM SUBLINGUAL (07:54)
--- NOTE | 2025-02-24 11:25 | MHC.CM.PN ---
AMARJIT met with pt and carrier packer, she said she wants to go home, she has [employer] and family assistance. She informed CM that she has an area on her bottom that is hurting her, she describes at burning, her nurse was informed. She said that she wants to have O2 available at home, CM asked MD for home O2 eval. She will go home via BLS.
[2025-02-24 11:44] LABS: Anion Gap 17 (12-20); Blood Urea Nitrogen 24 mg/dL (9-16); Calcium 9.0 mg/dL (8.4-10.2); Carbon Dioxide 30 mmol/L (22-29); Chloride 97 mmol/L (96-108); Creatinine Clr Calc Pharmacy 16.9; Estimated Glomerular Filt Rate 18; Potassium 3.7 mmol/L (3.3-5.1); Sodium 140 mmol/L (135-145)
[2025-02-24 12:00] VITALS: BP 124/57; PULSE 71; RESP 18; TEMP 36.4; O2SAT 98
[2025-02-24 12:39] LABS: Glucose, Whole Blood 189 mg/dL (60-115)
--- NOTE | 2025-02-24 13:09 | P.PNNP_ITS ---
Subjective Subjective Date of Service: 02/24/25 Interval history: Seen and examined,events noted Physical Exam 2 Vital Signs: Vital Signs: Last Vital Signs Temp 97.6 F 02/24/25 12:00 Pulse 71 02/24/25 12:00 Resp 18 02/24/25 12:00 BP 124/57 L 02/24/25 12:00 Pulse Ox 98 02/24/25 12:00 O2 Del Method Room Air 02/24/25 12:00 O2 Flow Rate 1 02/23/25 11:28 Oxygen Flow Rate 4 02/13/25 15:02 BMI result Body Mass Index 26.2 Objective Data Labs 02/18/25 08:20 02/24/25 11:13 Labs: Laboratory Results - last 24 hr 02/23/25 02/23/25 02/24/25 15:46 20: 06:51 Sodium Potassium Chloride Carbon Dioxide Anion Gap BUN Creatinine Estim Creat Clear Calc Estimated GFR POC Glucose 134 H 132 H 136 H Random Glucose Calcium 02/24/25 02/24/25 11:13 12:24 Sodium 140 Potassium 3.7 D Chloride 97 Carbon Dioxide 30 H Anion Gap 17 BUN 24 H Creatinine 2.70 H Estim Creat Clear Calc 16.9 Estimated GFR 18 POC Glucose 189 H Random Glucose 170 H Calcium 9.0 Microbiology Microbiology Results: Microbiology 02/13/25 17:47 Blood - Venous Blood Culture - Final No growth after 5 days. 02/13/25 17:47 Blood - Venous Blood Culture - Final No growth after 5 days. Procedures Date of Service Date of Service: 02/24/25 Assessment & Plan Assessment and plan (1) ESRD (end stage renal disease) on dialysis: Status: Chronic Plan 69-year-old Nigerian-speaking female with a past medical history significant for pulmonary hypertension, asthma/COPD overlap, hypertension, diabetes, ESRD TTS, HFpEF, hypertrophic cardiomyopathy, prolapsed rectum and recent admission at [facility] for hypertensive emergency with flash pulmonary edema placed on BiPAP with dialysis, who presented to the ED due to hypoxia and dyspnea. ESRD: hd TTS HyperK: lokelma for K > 5.2 SOB: improved REC: cont hD TTS, low K diet and Lokelma prn for K > 5.2; recheck labs in am Will follow w team Time Spent With Patient Time: Total time managing care of this patient today ____ minutes. Progress Note: Quality Stroke Does the patient have a stroke diagnosis?: No
[2025-02-24 15:11] VITALS: PULSE 89; PULSE 91; O2SAT 98
--- NOTE | 2025-02-24 15:26 | P.F2F_ITS ---
Service Date Service Date: 02/24/25 Encounter Date of encounter: 02/24/25 Reasons for Services Signs and symptoms assessed: see PT evaluation 02/20 and 02/23 Reason for assisted: medication management, medication treatment and teach disease management Reason for physical therapy: home safety and mobility, therapeutic exercises, gait/transfer training, assess need for DME, ADL training and energy conservation MD Overseeing Care: Melissa Jefferson Homebound: Leaving the home is medically contraindicated at this time without the asist of a device and/or another person due th the listed conditions above and below. Reason homebound: weakness related to hospital stay Certification: Based on the above findings, I certify that this patient is confined to the home and needs intermittent assisted care, physical therapy and/or speech therapy, or continues to need occupational therapy. The patient is under my care, and I have initiated the establishment of the plan of care. The patient will be followed by a physician who will periodically review the plan of care. Time Spent With Patient Time: Total time managing care of this patient today ____ minutes.
--- NOTE | 2025-02-24 15:28 | P.DS_ITS ---
DS: Providers Provider Date of Service: 02/24/25 Date of admission: 02/13/25 19:39 Date of discharge: 02/24/25 Primary care physician: Melissa Jefferson MD Consults: 02/13/25 22:23 Consult to Nephrology Routine Consulting Provider: [facility] Reason for consultation: ESRD on HD TTS Has provider been notified: Yes 02/13/25 22:24 Consult to Pulmonology Routine Consulting Provider: [facility] Reason for consultation: pneumonia, mucus plugs, layering fluid in sarah Has provider been notified: No 02/13/25 22:39 Consult to General Surgery Routine Consulting Provider: [facility] Reason for consultation: rectal prolapse, proctitis Has provider been notified: No DS: Diagnosis Discharge Diagnosis (1) ESRD (end stage renal disease) on dialysis: Status: Chronic (2) Hypertensive urgency: Status: Acute (3) Volume overload: Status: Acute (4) Acute on chronic heart failure with preserved ejection fraction (HFpEF): Status: Acute (5) Rectal prolapse: Status: Acute (6) Acute respiratory failure with hypoxia: Status: Acute (7) Pneumonia: Status: Acute DS: Summary Hospital Course Hospital Course: From the history and physical by the admitting hospitalist, BRANDON Kumari, 02/13/25: Patient is a 69-year-old South African-speaking female with a past medical history s ignificant for pulmonary hypertension, asthma/COPD overlap, hypertension, diabetes, ESRD TTS, HFpEF, hypertrophic cardiomyopathy, CKD, prolapsed rectum and recent admission at [facility] for hypertensive emergency with flash pulmonary edema placed on BiPAP with dialysis, who presented to the ED due to hypoxia and dyspnea. Patient was seen at [facility] earlier today was found to be saturating at 70% on room air and was dyspneic. She was placed on 4 L via NC and improved to 96%. She is feeling short of breath, wheezing with productive cough. Her largest complaint is severe rectal pain. She has a rectal prolapse which she reports is very painful. In the ED provider was able to replace the prolapse however the patient is still having significant pain. 69yo F with pulm HTN, asthma/COPD overlap, HTN, DM2, ESRD on HD TuThSa, HFpEF, HOCM, rectal prolpase; recent [place] [facility] [place] emergency with flash pulmonary edema treated with BiPAP + HD; presented with hypoxia + dyspnea, admitted for pneumonia/fluid overload to the telemetry unit with Nephrology and Pulmonology consultations. Hospital course by problem: acute hypoxic respiratory failure hospital-acquired pneumonia with mucos plugging cardiorenal syndrome acute/chronic HFpEF HTN urgency - CTA chest showed Right middle lobe pneumonia and scattered mucous plugs or smaller regions of pneumonia. Layering fluid in the sarah and proximal bilateral mainstem bronchi, likely source of mucous; Mediastinal lymphadenopathy, possibly reactive - complete ceftriaxone + doxycycline 02/14-02/23 - per Pulm no bronchoscopy needed but should follow up with Pulm in 1 mo as outpt for repeat CT chest, possible broncoscopy if mucus plugging + atelectasis still present - weaned off of oxygen and did not qualify for home oxygen - continued HD as per usual schedule TuThSa - CPAP at night; advised compliance with CPAP at home though pt has historically been noncompliant - resumed home antihypertensive regimen of amlodipine, carvedilol, clonidine, hydralazine, Isordil, and losartan NSTEMI type 2/demand - due to acute CHF, HTN urgency; no anginal symptoms ESRD on HD - [facility] [place] acetate, HD [facility]; followed by [facility] rectal prolapse, chronic - Gen Surg consulted, recommend high-fiber diet and stool softeners to avoid straining with bowel movements, outpatient surgical repair once pt medically stable Discharged to short-term rehabilitation at [facility] was recommended but placement could not be secured despite multiple attempts. She was discharged home with VNA services. Time Attestation Discharge Coordination Time (in mins): 45 Quality: Safe Use of Opioids Does Pt have an Active Cancer Diagnosis on the Problem List?: No Quality: Stroke Does the patient have a stroke diagnosis?: No Physical Exam Vital Signs: Vital Signs: Last Vital Signs Temp 97.6 F 02/24/25 12:00 Pulse 71 02/24/25 12:00 Resp 18 02/24/25 12:00 BP 124/57 L 02/24/25 12:00 Pulse Ox 98 02/24/25 12:00 O2 Del Method Room Air 02/24/25 12:00 O2 Flow Rate 1 02/23/25 11:28 Oxygen Flow Rate 4 02/13/25 15:02 BMI result Body Mass Index 26.2 Gen: in no acute distress HEENT: sclera anicteric, moist mucus membranes Neck: supple Lungs: clear to auscultation bilaterally Heart: regular rate and rhythm, no murmurs Abd: soft, non-tender, non-distended Ext: no edema Skin: warm/well-perfused Neuro: alert and oriented x3, no focal findings Psych: appropriate affect DS: Data Data Completed and Pending Completed studies during hospitalization [Text1]: Laboratory Results WBC 8.3 X10*3/uL (4.8-10.8) 02/18/25 08:20 RBC 3.21 X10*6/uL (4.20-5.50) L 02/18/25 08:20 Hgb 10.2 g/dl (12.0-16.0) L 02/18/25 08:20 Hct 31.6 % (37.0-47.0) L 02/18/25 08:20 MCV 98.4 fL (80.0-98.0) H 02/18/25 08:20 MCH 31.8 pg (27.0-33.0) 02/18/25 08:20 MCHC 32.3 g/dl (31.0-35.0) 02/18/25 08:20 RDW 14.1 % (11.0-16.0) 02/18/25 08:20 Plt Count 262 X10*3/uL (160-400) 02/18/25 08:20 MPV 9.8 fL (9.4-12.3) 02/18/25 08:20 Immature Gran % (Auto) 1.2 % (0.0-0.4) H 02/18/25 08:20 Neut % (Auto) 72.0 % (45-73) 02/18/25 08:20 Lymph % (Auto) 14.3 % (20-40) L 02/18/25 08:20 [place] % (Auto) 8.1 % (2-11) 02/18/25 08:20 Eos % (Auto) 4.0 % (0-4) 02/18/25 08:20 Baso % (Auto) 0.4 % (0-2) 02/18/25 08:20 Lymph # (Auto) 1.2 X10*3/uL (1.2-4.9) 02/18/25 08:20 [place] # (Auto) 0.7 X10*3/uL (0.1-1.2) 02/18/25 08:20 Eos # (Auto) 0.3 X10*3/uL (0.0-0.4) 02/18/25 08:20 Baso # (Auto) 0.0 X10*3/uL (0.0-0.2) 02/18/25 08:20 Abs Immat Gran (auto) 0.10 X10*3/uL (0.00-0.03) H 02/18/25 08:20 Absolute Neuts (auto) 6.0 x10*3/uL (2.0-8.3) 02/18/25 08:20 Absolute Nucleated RBC 0.000 X10*3/uL (0.0-0.012) 02/18/25 08:20 Nucleated RBC % (auto) 0.0 /100WBC (0.0-0.2) 02/18/25 08:20 VBG pH 7.35 (7.32-7.43) 02/13/25 23:38 VBG pCO2 57 mmHg 02/13/25 23:38 VBG pO2 59 mmHg 02/13/25 23:38 VBG HCO3 32 mmol/L (22-26) H 02/13/25 23:38 VBG O2 Saturation 82.0 % 02/13/25 23:38 VBG Base Excess 5.6 mmol/L 02/13/25 23:38 Sodium 140 mmol/L (135-145) 02/24/25 11:13 Potassium 3.7 mmol/L (3.3-5.1) D 02/24/25 11:13 Chloride 97 mmol/L (96-108) 02/24/25 11:13 Carbon Dioxide 30 mmol/L (22-29) H 02/24/25 11:13 Anion Gap 17 (12-20) 02/24/25 11:13 BUN 24 mg/dL (9-16) H 02/24/25 11:13 Creatinine 2.70 mg/dL (0.5-1.4) H 02/24/25 11:13 Estim Creat Clear Calc 16.9 02/24/25 11:13 Estimated GFR 18 02/24/25 11:13 POC Glucose 189 mg/dL (60-115) H 02/24/25 12:24 Random Glucose 170 mg/dL (60-115) H 02/24/25 11:13 Lactic Acid 0.6 mmol/L (0.5-2.0) 02/13/25 17:48 Calcium 9.0 mg/dL (8.4-10.2) 02/24/25 11:13 Phosphorus 4.7 mg/dL (2.7-4.5) H 02/13/25 17:47 Magnesium 2.1 mg/dL (1.6-2.6) 02/16/25 08:17 Total Bilirubin 0.4 mg/dL (0.0-1.0) 02/13/25 17:47 Direct Bilirubin 0.1 mg/dL (0.0-0.5) 02/13/25 17:47 AST 75 U/L (5-31) H 02/13/25 17:47 ALT 27 U/L (0-31) 02/13/25 17:47 Alkaline Phosphatase 156 U/L (39-117) H 02/13/25 17:47 Troponin I High Sens 74.7 ng/L (<3.5-17.0) H* 02/13/25 23:28 NT-Pro-B Natriuret Pep 67273.6 pg/mL (<300) H 02/18/25 08:20 Total Protein 7.8 g/dL (6.5-8.0) 02/13/25 17:47 Albumin 4.2 g/dL (3.5-5.0) 02/13/25 17:47 Lipase 9 U/L (8-78) 02/13/25 17:47 Procalcitonin 0.44 ng/mL 02/13/25 17:47 Influenza Type A (PCR) NEGATIVE (Negative) 02/13/25 17:47 Influenza Type B (PCR) NEGATIVE (Negative) 02/13/25 17:47 RSV RNA Qual (PCR) NEGATIVE (Negative) 02/13/25 17:47 SARS-CoV-2 RNA (RT-PCR) NEGATIVE (Negative) 02/13/25 17:47 Impressions Chest X-Ray 02/17/25 13:22 IMPRESSION: Left basilar atelectasis, early pneumonia not ruled out. Trace left pleural effusion. Cardiomegaly. Possible mild pulmonary vascular congestion. Electronically signed by: Rajendra Quinn MD 02/17/2025 02:17 PM EDT RP KUB X-Ray 02/18/25 11:10 IMPRESSION: Large amount of stool throughout the colon. Electronically signed by: Ton Hurtado MD 02/18/2025 11:50 AM EDT RP Discharge Plan Discharge Anticipated Discharge Date/Time: 02/24/25 15:15 Patient Disposition: Home Health Service Discharge Diagnosis: acute hypoxic respiratory failure, resolved hospital-acquired pneumonia with mucous plugging cardiorenal syndrome acute/chronic HFpEF HTN urgency chronic rectal prolapse Referrals: Melissa Jefferson MD [Primary Care Provider, Internal Medicine] - 1 Week Edmundo Luis MD [Physician, General Surgery] - 2 Weeks Volodymyr Casas MD [Physician, Pulmonology] - 1 Month Discharge Medications: Continued pantoprazole 40 mg Tablet,Delayed Release (Dr/Ec) 40 mg PO DAILY@0630 melatonin 5 mg Tablet 5 mg PO BEDTIME aspirin 81 mg tablet,delayed release (DR/EC) 1 tab PO DAILY albuterol sulfate [Ventolin HFA] 90 mcg/actuation HFA aerosol inhaler 2 puff INHALATION Q4H PRN (Reason: wheezing) albuterol sulfate 2.5 mg /3 mL (0.083 %) solution for nebulization 1 amp inhalation Q6H PRN (Reason: Shortness Of Breath) isosorbide dinitrate 30 mg Tablet 30 mg PO TID Rx Instructions: allow nitrate-free interval of 12-14 hrs per 24-hr period Elle-Sharifa Rx 1-60-300 mg-mg-mcg tablet 1 tab PO DAILY buprenorphine-naloxone 12-3 mg film 1 film sublingual DAILY Lokelma 10 gram powder in packet 10 g PO MOWEFR@0900 amlodipine 10 mg tablet 10 mg PO DAILY glucose 4 gram tablet,chewable 16 g PO Q15M PRN (Reason: hypoglycemia) trazodone 100 mg tablet 100 mg PO BEDTIME PRN (Reason: insomnia) diclofenac sodium 1 % gel 2 g topical BID PRN (Reason: Pain) ondansetron HCl 4 mg tablet 4 mg PO Q12H PRN (Reason: nausea/vomiting) acetaminophen 500 mg tablet 500 mg PO Q8H PRN (Reason: pain) docusate sodium [Colace] 100 mg Capsule 100 mg PO BID calcium acetate(phosphat bind) 667 mg capsule 667 mg PO TIDWM lactulose 10 gram/15 mL solution 10 g PO DAILY PRN (Reason: constipation) nicotine 14 mg/24 hr patch 24 hour 1 patch topical DAILY hydralazine 100 mg tablet 100 mg PO TID mirtazapine 30 mg tablet 30 mg PO BEDTIME clonidine 0.3 mg/24 hr patch weekly 1 patch topical WE polyethylene glycol 3350 17 gram/dose powder 17 g PO DAILY losartan 100 mg tablet 100 mg PO DAILY carvedilol 25 mg tablet 25 mg PO BID Discharge Orders: Discharge Order (Routine); Ordered 02/24/25 Ordered By: Florence Mesa Diet: low potassium Activity on Discharge: As tolerated Stand Alone Forms: Patient Portal Discharge page Print Language: South African Care Plan Goals: recovery from hospitalization Health Concerns: acute hypoxic respiratory failure, resolved hospital-acquired pneumonia with mucous plugging cardiorenal syndrome acute/chronic HFpEF HTN urgency chronic rectal prolapse Plan of Treatment: weaned off oxygen; did not qualify for home oxygen use CPAP at night completed antibiotics in hospital follow up with [facility] in 1 month; REPEAT CT CHEST IN 1 MONTH; if atelectasis is present, to consider bronchoscopy continue dialysis // follow up with General Surgery in 1 month to address rectal prolapse Please follow up with your primary care doctor within 1 week. Return to the hospital if you experience recurrent or worsening symptoms. Assessment: See Discharge Summary.
[2025-02-24 16:00] VITALS: BP 156/69; PULSE 69; RESP 18; TEMP 36.2; O2SAT 97
--- NOTE | 2025-02-24 16:01 | MHC.CM.PN ---
Second IMM, pt. 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 Pt. went home via BLS.
[2025-02-24 16:04] LABS: Glucose, Whole Blood 153 mg/dL (60-115)
== END 2025-02-24 18:00 | disposition home health service (06) | DRG 193 ==
LOC: HO.ED 19:55 → HO.EDOVER 20:09 → HO.IMC 21:04
PROVIDERS: Hospitalist; Physician Assistant; Student in an Organized Health Care Education/Training Program; Admitting Provider Hospitalist; Emergency Provider Emergency Medicine Emergency Medical Services; PCP General Practice; Visit Provider Family Medicine
DX: J18.9 Pneumonia, unspecified organism (principal); I21.A1 Myocardial infarction type 2; I50.33 Acute on chronic diastolic (congestive) heart failure; N18.6 End stage renal disease; J96.01 Acute respiratory failure with hypoxia; I13.2 Hypertensive heart and chronic kidney disease with heart failure and with stage 5 chronic kidney disease, or end stage renal disease; F11.20 Opioid dependence, uncomplicated; J44.0 Chronic obstructive pulmonary disease with (acute) lower respiratory infection; J98.11 Atelectasis; I42.2 Other hypertrophic cardiomyopathy; I16.1 Hypertensive emergency; E11.22 Type 2 diabetes mellitus with diabetic chronic kidney disease; Z99.2 Dependence on renal dialysis; E11.42 Type 2 diabetes mellitus with diabetic polyneuropathy; I27.20 Pulmonary hypertension, unspecified; F39 Unspecified mood [affective] disorder; E87.5 Hyperkalemia; K62.3 Rectal prolapse; F17.210 Nicotine dependence, cigarettes, uncomplicated; Z71.6 Tobacco abuse counseling; Z20.822 Contact with and (suspected) exposure to COVID-19; Z79.82 Long term (current) use of aspirin; Z79.899 Other long term (current) drug therapy
CPT/HCPCS: 36415; 71045; 71275; 74018; 74177; 80048; 80076; 82803; 82947; 83605; 83690; 83735; 83880; 84100; 84145; 84484; 85025; 87040; 87637; 90999; 93005; 94640; 94660; 97116; 97162; 97530; 99285; J0692; J0696; J1171; J1271; J1644; J1920; J1938; J2405; J3374; Q9967

== ENCOUNTER → 2025-02-13 16:53 | Outpatient (BNV) | payer OTHER, SELFPAY | PROVIDERS: Emergency Provider Emergency Medicine Emergency Medical Services; Visit Provider Nuclear Medicine | DX: R10.9 Unspecified abdominal pain (principal); J18.9 Pneumonia, unspecified organism; R59.0 Localized enlarged lymph nodes; E04.2 Nontoxic multinodular goiter; J81.1 Chronic pulmonary edema; J90 Pleural effusion, not elsewhere classified | CPT/HCPCS: 71045; 71275; 74177 ==

== ENCOUNTER → 2025-02-13 16:54 | Outpatient (BNV) | payer OTHER, SELFPAY | PROVIDERS: Admitting Provider Hospitalist; Emergency Provider Emergency Medicine Emergency Medical Services; Visit Provider Internal Medicine Cardiovascular Disease | DX: I51.7 Cardiomegaly (principal) | CPT/HCPCS: 93010 ==

== ENCOUNTER 2025-02-13 19:39 | Outpatient (BNV) | payer OTHER, SELFPAY | END 2025-02-17 13:22 | PROVIDERS: Admitting Provider Hospitalist; Emergency Provider Emergency Medicine Emergency Medical Services; PCP General Practice; Visit Provider Radiology Diagnostic Radiology | DX: J98.11 Atelectasis (principal); I51.7 Cardiomegaly | CPT/HCPCS: 71045 ==

== ENCOUNTER 2025-02-13 19:39 | Outpatient (BNV) | payer OTHER, SELFPAY | END 2025-02-15 09:32 | PROVIDERS: Admitting Provider Hospitalist; Emergency Provider Emergency Medicine Emergency Medical Services; PCP General Practice; Visit Provider Internal Medicine | DX: I51.7 Cardiomegaly (principal) | CPT/HCPCS: 93010 ==

== ENCOUNTER 2025-02-13 19:39 | Outpatient (BNV) | payer OTHER, SELFPAY | END 2025-02-18 11:10 | PROVIDERS: Admitting Provider Hospitalist; Emergency Provider Emergency Medicine Emergency Medical Services; PCP General Practice; Visit Provider Radiology Diagnostic Radiology | DX: R19.5 Other fecal abnormalities (principal) | CPT/HCPCS: 74018 ==

== ENCOUNTER → 2025-02-13 19:39 | Outpatient (BNV) | payer OTHER, SELFPAY | PROVIDERS: Admitting Provider Hospitalist; Emergency Provider Emergency Medicine Emergency Medical Services; Visit Provider Internal Medicine Pulmonary Disease | DX: J96.01 Acute respiratory failure with hypoxia (principal); J81.1 Chronic pulmonary edema; J98.11 Atelectasis | CPT/HCPCS: 99222 ==

== ENCOUNTER → 2025-02-13 19:39 | Outpatient (BNV) | payer OTHER, SELFPAY | PROVIDERS: Admitting Provider Hospitalist; Emergency Provider Emergency Medicine Emergency Medical Services; Visit Provider Student in an Organized Health Care Education/Training Program | DX: J96.01 Acute respiratory failure with hypoxia (principal) | CPT/HCPCS: 99223; 99232 ==

== ENCOUNTER → 2025-02-13 19:39 | Outpatient (BNV) | payer OTHER, SELFPAY | PROVIDERS: Admitting Provider Hospitalist; Emergency Provider Emergency Medicine Emergency Medical Services; Visit Provider Surgery | DX: K62.3 Rectal prolapse (principal) | CPT/HCPCS: 99222 ==

== ENCOUNTER 2025-03-02 13:45 | Outpatient (REF) | payer OTHER, SELFPAY ==
--- NOTE | ~2025-03-02 | XR_ITS ---
EXAMINATION: XR ANKLE, LEFT CLINICAL INFORMATION: fall COMPARISON: None available. TECHNIQUE: AP, lateral, and mortise views of the left ankle. FINDINGS: The ankle mortise and subtalar joints are normal. There is no visible acute fracture, dislocation or subluxation. Loss of intertarsal and tarsometatarsal joint space with subchondral cysts and mild increased sclerosis in the tarsal joints likely degenerative arthritic changes. There is a small calcaneal heel spur. XR/XR ankle LT min 3V IMPRESSION: No acute fracture or dislocation. Mild degenerative changes in mid foot Electronically signed by: Orlando Dozier MD 03/03/2025 07:13 AM EDT
--- OUTSIDE RECORDS SUMMARY | 2025-03-02 13:20 | XMS_ITS | Encounter Summary ---
Author Organization [employer] Address [address] [place] [address] Care Team Providers Care Vending Route Servicer Name Role Phone Melissa Jefferson MD Primary Care Provider [phone] Reason for Visit * Reason Comments Ankle Pain Encounter Details Date Type Department Care Team (Late st Contact Info) Description 03/02/2025 1:20 PM EDT Office Visit [facility] [address] [place] [address] Left ankle swelling (Primary Dx); Elevated blood pressure reading; Swelling of both lower extremities Social History Tobacco Use Types Packs/Day Years Used Date Smoking Tobacco: Some Days Cigarettes 0.3 1.8 Started: 2023 Passive Smoke Exposure: Current Smokeless [...] Sign Reading Time Taken Comments Blood Pressure 141/63 03/02/2025 1:12 PM EDT Pulse 84 03/02/2025 1:12 PM EDT Temperature 36.8 C (98.2 F) 03/02/2025 1:12 PM EDT Respiratory Rate 16 03/02/2025 1:12 PM EDT Oxygen Saturation - - Inhaled Oxygen Concentration - - Weight 63 kg (138 lb 12.8 oz) 03/02/2025 1:12 PM EDT Height 154.9 cm (5' 1 ) 03/02/2025 1:12 PM EDT Body Mass Index 26.23 03/02/2025 1:12 PM EDT documented in this encounter Plan of Treatment Upcoming Encounters Date Type Department Care Team (Late st Contact Info) Description 03/13/2025 10:00 AM EDT Office Visit [facility] MED[facility] [address] [place] [address] Messi Mccollum MD [address] [place], [place] [phone] 03/18/2025 9:45 AM EDT Office Visit [facility] [address] [place] [address] Marybeth Campa NP [address] [place] [address] 04/28/2025 11:30 AM EST Office Visit [facility] [address] [place] [address] Melissa Jefferson MD [address] [place] [address] 06/26/2025 2:00 PM EST Office Visit [facility] OPTOMETRY [address] [place] [address] Mike Jaja, OD [address] [place] [address] Scheduled Orders Name Type Priority Associated Diagnoses Orde r Schedule XR Ankle 3+ Views Left Imaging Routine Left ankle swelling Expected: 03/02/2025, Expires: 03/02/2026 documented as of this encounter Goals Goal Patient Goal Type Associated Problems Recent Progress Patient-Stated? Author Check and record your blood sugars as directed Blood Pressure No Jimbo Burris PharmD Short-term: Promote adherence to treatment regimen General No Jimbo Burris PharmD Take your medication every day Lifestyle No Jimbo Burris PharmD documented as of this encounter Visit Diagnoses Diagnosis Left ankle swelling- Primary Effusion of ankle and foot joint Elevated blood pressure reading Elevated blood pressure reading without diagnosis of hypertension Swelling of both lower extremities documented in this encounter Additional Health Concerns Assessment Noted Time PHQ-9 Depression Total Score: 13 025 3:05 PM EDT documented as of this encounter Care Teams Vending Route Servicer Relationship Specialty Start Date End Date Melissa Jefferson MD [address] [place] [address] PCP - General Family Medicine 12/04/24 [employer] 04/08/22 Tj Larose MD Hydro Generation Manager Nephrology 04/10/24 documented as of this encounter
--- OUTSIDE RECORDS SUMMARY | 2025-03-02 13:49 | XMS_ITS | Encounter Summary ---
Author Organization [employer] Address [address] [facility] 7t [place] [address] Care Team Providers Care Publication Specialist Name Role Phone Sammy Reilly MD Primary Care Provide r Melissa Jefferson MD Primary Care Provider [phone] Encounter Details Date Type Department Care Team (Late st Contact Info) Description 05/08/2022 Orders Only [facility] [address] [place] [address] [phone] Swetha Ribera LPN Social History Tobacco Use [...] Description 03/13/2025 10:00 AM EDT Office Visit [facility] [address] [place] [address] [phone] Messi Mccollum MD [address] [place] [address] [phone] 03/18/2025 9:45 AM EDT Office Visit [facility] [address] [place] [address] [phone] Marybeth Campa NP [address] [place], [place] [phone] 04/28/2025 11:30 AM EST Office Visit [facility] [address] [place] [address] Melissa Jefferson MD [address] [place] [address] 06/26/2025 2:00 PM EST Office Visit [facility] [address] [place], [place] [phone] Mike, Jaja, OD [address] [place] [address] documented as of this encounter Visit Diagnoses Not on filedocumented in this encounter Care Teams Publication Specialist Relationship Specialty Start Date End Date Sammy Reilly MD [address] [place] [address] [phone] PCP - General Internal Medicine 12/23/13 12/03/24 Melissa Jefferson MD [address] [place] [address] [phone] PCP - General Family Medicine 12/04/24 [employer] 04/08/22 Tj Larose MD Tangled Yarn Spool Straightener Nephrology 04/10/24 documented as of this encounter
--- OUTSIDE RECORDS SUMMARY | 2025-03-02 13:49 | XMS_ITS | Encounter Summary ---
Author Organization [employer] Address [address] [facility] 7t [place] [address] Care Team Providers Care Nuclear Criticality Safety Engineer Name Role Phone Sammy Reilly MD Primary Care Provide r Melissa Jefferson MD Primary Care Provider [phone] Reason for Visit * Reason Comments Med Refill Encounter Details Date Type Department Care Team (Late st Contact Info) Description 05/05/2022 Refill [facility]ED[facility] [address] [place] [address] Margarita Rob, ANP [address] [facility] [place] [address] Chronic obstructive pulmonary disease, unspecified COPD type [...] Description 03/13/2025 10:00 AM EDT Office Visit [facility] MEDIC[facility] [address] [place] [address] Messi Mccollum MD [address] [place] [address] 03/18/2025 9:45 AM EDT Office Visit [facility] MED[facility] [address] [place] [phone] Marybeth Campa, JOHN [address] [place] [address] 04/28/2025 11:30 AM EST Office Visit [facility] MED[facility] [address] [place] [address] Melissa Jefferson MD [address] [place] [address] 06/26/2025 2:00 PM EST Office Visit [facility] OPTOMETRY [address] [place] [address] Mike, Jaja, OD [address] [place] [address] documented as of this encounter Visit Diagnoses Diagnosis Chronic obstructive pulmonary disease, unspecified COPD type (CMS/HCC) (HCC)- Primary documented in this encounter Care Teams Nuclear Criticality Safety Engineer Relationship Specialty Start Date End Date Sammy Reilly MD [address] [place] [phone] PCP - General Internal Medicine 12/23/13 12/03/24 Melissa Jefferson MD [address] [place] [phone] PCP - General Family Medicine 12/04/24 [employer] 04/08/22 Tj Larose MD Drainage Design Coordinator Nephrology 04/10/24 documented as of this encounter
--- OUTSIDE RECORDS SUMMARY | 2025-03-02 13:49 | XMS_ITS | Encounter Summary ---
Author Organization [facility] Address [address] [place] [phone] Phone Care Team Providers Care Robotics Specialist Name Role Phone Unavailable Primary Care Provider Unavailabl e Encounter Details Date Type Department Care Team ([facility] st Contact Info) Description 11/13/2024 TCM in Dialysis Clinic [facility] [address] [phone] Yohannes Larose MD [address] [phone] Social History Tobacco Use Types [...] 11/13/2024 The patient was seen for a [id number] visit as part of Transitional Care Management services. Attending Carpet Jack: YOHANNES LAROSE MD Dialysis Location: [facility] Schedule: Shift: 2 INTERACTIVE CONTACT Contact [...] with the patient. VISIT DIAGNOSES CPT Code 81195 - High complexity, seen 8-14 days post discharge or moderate complexity, seen days of discharge. N18.6 End stage renal disease Signed by: YOHANNES LAROSE MD on 11/13/2024 at 12:45:31 PM Transcribed by: YOHANNES LAROSE MD on 11/13/2024 at 12:45:31 PM documented in this encounter Plan of Treatment Not on file documented as of this encounter Visit Diagnoses Not on filedocumented in this encounter
--- OUTSIDE RECORDS SUMMARY | 2025-03-02 13:49 | XMS_ITS | Encounter Summary ---
Author Organization [employer] Address [address] [address]t [place] [address] Care Team Providers Care Bank Vault Attendant Name Role Phone Sammy Reilly MD Primary Care Provide r Melissa Jefferson MD Primary Care Provider [phone] Reason for Visit * Reason Comments Med Refill Encounter Details Date Type Department Care Team (Late st Contact Info) Description 11/21/2023 Refill [facility] MED [facility] PEDS [address] [place] [address] Sammy Reilly MD [address] [place], [place] [phone] Chronic obstructive pulmonary disease, unspecified COPD type [...] the past 12 months, has t he Top[employer], gas, oil or water company threatened to [...] Description 03/13/2025 10:00 AM EDT Office Visit [facility] MED[facility] [address] [place] [phone] Messi Mccollum MD [address] [place] [address] 03/18/2025 9:45 AM EDT Office Visit [facility] [address] [place] [phone] Marybeth Campa NP [address] [place] [address] 04/28/2025 11:30 AM EST Office Visit [facility] [address] [place] [phone] Melissa Jefferson MD [address] [place] [address] 06/26/2025 2:00 PM EST Office Visit [facility] OPTOMETRY [address] [place] [phone] Jaja Mckeon, VALERIA [address] [place] [address] documented as of this encounter Goals Goal [...] obstructive pulmonary disease, unspecified COPD type (CMS/HCC) (HCC) documented in this encounter Additional Health Concerns Assessment Noted Time PHQ-9 Depression Total Score: 11 024 9:25 AM EDT documented as of this encounter Care Teams Bank Vault Attendant Relationship Specialty Start Date End Date Sammy Reilly MD [address] [place] [address] PCP - General Internal Medicine 12/23/13 12/03/24 Melissa Jefferson MD [address] [place] [address] PCP - General Family Medicine 12/04/24 [employer] 04/08/22 Tj Larose MD Parking Lot Attendant And Cashier Nephrology 04/10/24 documented as of this encounter
--- OUTSIDE RECORDS SUMMARY | 2025-03-02 13:49 | XMS_ITS | Encounter Summary ---
Author Organization [employer] Address [address] [facility] [address]t [place] [address] Care Team Providers Care Physical Sciences Professor Name Role Phone Sammy Reilly MD Primary Care Provide r Melissa Jefferson MD Primary Care Provider [phone] Reason for Visit * Reason Comments Med Refill Encounter Details Date Type Department Care Team ([facility] Contact Info) Description 05/30/2022 Refill [facility] MEDICINE [address] [place] [address] Sammy Reilly MD [address] [place], [place] [phone] Social History Tobacco Use Types Packs/Day Years [...] Upcoming Encounters Date Type Department Care Team ([facility] Contact Info) Description 03/13/2025 10:00 AM EDT Office Visit [facility] MEDICINE [address] [place] [address] Messi Mccollum MD [address] [place] [address] 03/18/2025 9:45 AM EDT Office Visit [facility] [address] [place] [address] Marybeth Campa, JOHN [address] [place] [address] 04/28/2025 11:30 AM EST Office Visit [facility] [address] [place] [address] Melissa Jefferson MD [address] [place] [address] 06/26/2025 2:00 PM EST Office Visit [facility] OPTOMETRY [address] [place] [address] Jaja Mckeon, OD [address] [place] [address] documented as of this encounter Visit Diagnoses Not on filedocumented in this encounter Care Teams Physical Sciences Professor Relationship Specialty Start Date End Date Sammy Reilly MD [address] [place] [id number] PCP - General Internal Medicine 12/23/13 12/03/24 Melissa Jefferson MD [address] [place] [address] PCP - General Family Medicine 12/04/24 [employer] 04/08/22 Tj Larose MD Bodily Injury Adjuster Nephrology 04/10/24 documented as of this encounter
--- OUTSIDE RECORDS SUMMARY | 2025-03-02 13:50 | XMS_ITS | Encounter Summary ---
Author Organization [facility] Address [address] [place] [address] Care Team Providers Care Glue Reel Operator Name Role Phone Sammy Strickland MD Primary Care Provider [phone] Encounter Details Date Type Department Care Team [...] as of this encounter Functional Status * AUDIT-C Total Score - Female Answer Date of Assessment Author 0 03/28/2022 2:30 PM EST Ton Cohn RN * Audit-C Score Answer Date of Assessment Author 0 03/28/2022 2:30 PM EST Ton Cohn RN * Question Answer Date of Assessment Author Q1: How often do you have a drink containing alcohol? Never 03/28/2022 2:30 PM Ton Sarabia RN Q2: How many drinks containing alcohol do you have on a typical day when you are drinking? Patient does not drink 03/28/2022 2:30 PM Ton Sarabia RN Q3: How often do you have six or more drinks on one occasion? Never 03/28/2022 2:30 PM Ton Sarabia RN * Level of Risk per Screen Answer Date of Assessment Author Low Risk 03/27/2022 5:29 PM Suraj Bear i, RN documented as of this encounter Plan of Treatment Not on file documented as of this encounter Visit Diagnoses Not on filedocumented in this encounter Care Teams Glue Reel Operator Relationship Specialty Start Date End Date Sammy Strickland MD [address] [place] [address] [place] [address] PCP - General 03/27/22 documented as of this encounter
--- OUTSIDE RECORDS SUMMARY | 2025-03-02 13:50 | XMS_ITS | Encounter Summary ---
Author Organization [employer] Address [address] 7t [place] [address] Care Team Providers Care Supervisor Microwave Name Role Phone Sammy Reilly MD Primary Care Provide r Melissa Jefferson MD Primary Care Provider Reason for Visit * Reason Onset Date Comments PA 06/10/2024 Encounter Details Date Type Department Care Team ([facility] st Contact Info) Description 06/10/2024 Telephone [facility] MEDICINE [address] [place], [place] [phone] Sammy Reilly MD 230 [place], [place] [phone] PA Social History Tobacco Use Types Packs/Day [...] Description 03/13/2025 10:00 AM EDT Office Visit [facility] MEDICINE [address] [place] [address] Messi Mccollum MD 230 [place] [address] 03/18/2025 9:45 AM EDT Office Visit [facility] MEDICINE [address] [place] [address] Marybeth Campa NP 230 [place] [address] 04/28/2025 11:30 AM EST Office Visit [facility] MED[facility]INE [address] [place] [address] Melissa Jefferson MD [address] [place] 06/26/2025 2:00 PM EST Office Visit [facility] OPTOMETRY [address] [place], [place] [phone] Mike, Jaja, OD 230 [place] [address] documented as of this encounter Goals Goal [...] as of this encounter Care Teams Supervisor Microwave Relationship Specialty Start Date End Date Sammy Reilly MD [address] [place] [address] [phone] PCP - General Internal Medicine 12/23/13 12/03/24 Melissa Jefferson MD [address] [place] [address] [phone] PCP - General Family Medicine 12/04/24 [employer] 04/08/22 Tj Larose MD Solvent Mixer Nephrology 04/10/24 documented as of this encounter
--- OUTSIDE RECORDS SUMMARY | 2025-03-02 13:50 | XMS_ITS | Encounter Summary ---
Author Organization [employer] Address [address] 7t [place] [address] Care Team Providers Care Furnace Utility Operator Name Role Phone Sammy Reilly MD Primary Care Provide r Melissa Jefferson MD Primary Care Provider [phone] Reason for Visit * Reason Comments Med Refill Encounter Details Date Type Department Care Team (Late st Contact Info) Description 10/23/2023 Refill [facility] [address] [place] [address] Sammy Reilly MD [address] [place], [place] [phone] Constipation due to opioid therapy Social History [...] Description 03/13/2025 10:00 AM EDT Office Visit [facility] MEDICINE [address] [place] [address] Messi Mccollum MD 230 [place] [address] 03/18/2025 9:45 AM EDT Office Visit [facility] MEDICINE [address] [place] [address] Marybeth Campa NP 230 [place] [address] 04/28/2025 11:30 AM EST Office Visit [facility] MEDICINE [address] [place] [address] Melissa Jefferson MD 230 [place] [address] 06/26/2025 2:00 PM EST Office Visit [facility] OPTOMETRY [address] [place] [address] Jaja Mckeon, VALERIA 230 [place] [address] documented as of this encounter Goals Goal [...] documented as of this encounter Care Teams Furnace Utility Operator Relationship Specialty Start Date End Date Sammy Reilly MD 230 [place] [address] PCP - General Internal Medicine 12/23/13 12/03/24 Melissa Jefferson MD 230 [place] [address] PCP - General Family Medicine 12/04/24 [employer] 04/08/22 Tj Larose MD Rheologist Nephrology 04/10/24 documented as of this encounter
--- OUTSIDE RECORDS SUMMARY | 2025-03-02 13:50 | XMS_ITS | Encounter Summary ---
Author Organization [employer] Address [address] 7t [place] [address] Care Team Providers Care Language Path Name Role Phone Sammy Reilly MD Primary Care Provide r Melissa Jefferson MD Primary Care Provider [phone] Encounter Details Date Type Department Care Team (Late st Contact Info) Description 07/28/2024 Orders Only [facility] MED & PEDS [address] [place] [address] Provider, MD Willow Social History Tobacco Use [...] Description 03/13/2025 10:00 AM EDT Office Visit [facility] MEDICINE [address] [place] [address] Messi Mccollum MD [address] [place] [address] 03/18/2025 9:45 AM EDT Office Visit [facility] MEDICINE [address] [place] [address] Marybeth Campa NP [address] [place] [address] 04/28/2025 11:30 AM EST Office Visit [facility] MEDICINE [address] [place] [address] Melissa Jefferson MD [address] [place] [address] 06/26/2025 2:00 PM EST Office Visit [facility] OPTOMETRY [address] [place] [address] Jaja Mckeon, OD [address] [place] [address] documented as of this encounter Goals Goal [...] EST) Historical Provider HEALTH MAINTENANCE Final Result documented in this encounter Visit Diagnoses Not on filedocumented in this encounter Additional Health Concerns Assessment Noted Time PHQ-9 Depression Total Score: 11 024 9:25 AM EDT documented as of this encounter Care Teams Language Path Relationship Specialty Start Date End Date Sammy Reilly MD 230 [place] [address] PCP - General Internal Medicine 12/23/13 12/03/24 Melissa Jefferson MD 230 [place] [address] PCP - General Family Medicine 12/04/24 [employer] 04/08/22 Tj Larose MD Warehouse Forklift Operator Nephrology 04/10/24 documented as of this encounter
--- OUTSIDE RECORDS SUMMARY | 2025-03-02 13:50 | XMS_ITS | Encounter Summary ---
Author Organization [employer] Address [address] 7t [place] [address] Care Team Providers Care Slip Sheeter Name Role Phone Sammy Reilly MD Primary Care Provide r Melissa Jefferson MD Primary Care Provider [phone] Reason for Visit * Reason Comments Med Refill Encounter Details Date Type Department Care Team ([facility] st Contact Info) Description 07/31/[address] [facility] MED[facility]INE 230 [place] [address] Geena Umana CN 230 [place], [place] [phone] Social History Tobacco Use Types Packs/Day Years [...] Description 03/13/2025 10:00 AM EDT Office Visit [address] [address] Messi Mccollum MD [address] [place] [address] 03/18/2025 9:45 AM EDT Office Visit [address] [address] Marybeth Campa NP [address] [place] [address] 04/28/2025 11:30 AM EST Office Visit [address] [address] Melissa Jefferson MD [address] [place] [address] [phone] 06/26/2025 2:00 PM EST Office Visit [facility] OPTOMETRY [address] [place], [place] [phone] Jaja Mckeon, OD 230 [place] [address] documented as of this encounter Goals Goal [...] documented as of this encounter Care Teams Slip Sheeter Relationship Specialty Start Date End Date Sammy Reilly MD 230 [place] [address] PCP - General Internal Medicine 12/23/13 12/03/24 Melissa Jefferson MD 230 [place] [address] PCP - General Family Medicine 12/04/24 [employer] 04/08/22 Tj Larose MD Strap Making Machine Operator Nephrology 04/10/24 documented as of this encounter
--- OUTSIDE RECORDS SUMMARY | 2025-03-02 13:50 | XMS_ITS | Encounter Summary ---
Author Organization [employer] Address [address] 7t [place] [address] Care Team Providers Care Sql Tech Name Role Phone Sammy Reilly MD Primary Care Provide r Melissa Jefferson MD Primary Care Provider [phone] Reason for Visit * Reason Comments Med Refill Encounter Details Date Type Department Care Team ([facility] st Contact Info) Description 01/16/2024 Refill [facility] MEDICINE 230 [place] [address] Sammy Reilly MD 230 [place], [place] [phone] Primary hypertension Social History Tobacco Use Types [...] Description 03/13/2025 10:00 AM EDT Office Visit [facility] MEDICINE [address] [place] [address] Messi Mccollum MD 230 [place] [address] 03/18/2025 9:45 AM EDT Office Visit [address] [address] Marybeth Campa NP 230 [place] [address] 04/28/2025 11:30 AM EST Office Visit [facility] MEDICINE [address] [place] [address] Melissa Jefferson MD 230 [place] [address] 06/26/2025 2:00 PM EST Office Visit [facility] OPTOMETRY [address] [place] [address] Jaja Mckeon, OD 230 [place] [address] documented as of this encounter Goals Goal [...] documented as of this encounter Care Teams Sql Tech Relationship Specialty Start Date End Date Sammy Reilly MD 230 [place] [address] PCP - General Internal Medicine 12/23/13 12/03/24 Melissa Jefferson MD 230 [place] [address] PCP - General Family Medicine 12/04/24 [employer] 04/08/22 Tj Larose MD Cash Analyst Nephrology 04/10/24 documented as of this encounter
--- OUTSIDE RECORDS SUMMARY | 2025-03-02 13:50 | XMS_ITS | Encounter Summary ---
Author Organization [employer] Address [address] [facility] 7t [place] [address] Care Team Providers Care Vat Packer Name Role Phone Sammy Reilly MD Primary Care Provide r Melissa Jefferson MD Primary Care Provider Reason for Visit * Reason Comments Med Refill Encounter Details Date Type Department Care Team (Late st Contact Info) Description 10/21/2023 Refill [facility] MED[facility]INE 230 [place], [place] [phone] Sammy Reilly MD 230 [place], [place] [phone] Chronic obstructive pulmonary disease, unspecified COPD type [...] Description 03/13/2025 10:00 AM EDT Office Visit [facility] MEDICINE [address] [place] [address] Messi Mccollum MD 230 [place] [address] 03/18/2025 9:45 AM EDT Office Visit [facility] MEDICINE [address] [place] [address] Marybeth Campa NP 230 [place] [address] 04/28/2025 11:30 AM EST Office Visit [facility] MEDICINE [address] [place] [address] Melissa Jefferson MD [address] [place] [address] 06/26/2025 2:00 PM EST Office Visit [facility] OPTOMETRY [address] [place] [address] Jaja Mckeon OD 230 [place] [address] documented as of this encounter Goals Goal [...] documented as of this encounter Care Teams Vat Packer Relationship Specialty Start Date End Date Sammy Reilly MD 230 [place] [address] PCP - General Internal Medicine 12/23/13 12/03/24 Melissa Jefferson MD [address] [place] [address] PCP - General Family Medicine 12/04/24 [employer] 04/08/22 Tj Larose MD Electrician Rectifier Maintenance Nephrology 04/10/24 documented as of this encounter
--- OUTSIDE RECORDS SUMMARY | 2025-03-02 13:50 | XMS_ITS | Encounter Summary ---
Author Organization [employer] Address [address] 7t [place] [address] Care Team Providers Care Medical Representative Name Role Phone Sammy Reilly MD Primary Care Provide r Melissa Jefferson MD Primary Care Provider [phone] Reason for Visit * Reason Comments Med Refill Encounter Details Date Type Department Care Team ([facility] st Contact Info) Description 05/09/2023 Refill [facility] MEDICINE 230 [place] [address] Sammy Reilly MD 230 [place] [address] Social History Tobacco Use Types Packs/Day Years [...] Description 03/13/2025 10:00 AM EDT Office Visit [facility] MEDICINE [address] [place] [address] Messi Mccollum MD 230 [place] [address] 03/18/2025 9:45 AM EDT Office Visit [address] [address] Marybeth Campa NP 230 [place] [address] 04/28/2025 11:30 AM EST Office Visit [address] [address] Melissa Jefferson MD 230 [place] [address] 06/26/2025 2:00 PM EST Office Visit [facility] OPTOMETRY [address] [place] [address] Jaja Mckeon OD 230 [place] [address] documented as of this encounter Goals Goal [...] as of this encounter Care Teams Medical Representative Relationship Specialty Start Date End Date Sammy Reilly MD 230 [place] [address] PCP - General Internal Medicine 12/23/13 12/03/24 Melissa Jefferson MD 230 [place] [address] PCP - General Family Medicine 12/04/24 [employer] 04/08/22 Tj Larose MD Information Resource Consultant Nephrology 04/10/24 documented as of this encounter
--- OUTSIDE RECORDS SUMMARY | 2025-03-02 13:50 | XMS_ITS | Encounter Summary ---
Author Organization [employer] Address [address] 7t [place] [address] Care Team Providers Care Mold Shifter Name Role Phone Sammy Reilly MD Primary Care Provide r Melissa Jefferson MD Primary Care Provider [phone] Reason for Visit * Reason Comments Med Refill Encounter Details Date Type Department Care Team ([facility] st Contact Info) Description 04/25/2023 Refill [facility] 230 [place], [place] [phone] Neptali Coles MD 230 [place], [place] [phone] Social History Tobacco Use Types Packs/Day Years [...] 10:00 AM EDT Office Visit [facility] MEDICINE [address] [place] [address] Messi Mccollum MD 230 [place] [address] 03/18/2025 9:45 AM EDT Office Visit [facility] MEDICINE [address] [place] [address] Marybeth Campa NP 230 [place] [address] 04/28/2025 11:30 AM EST Office Visit [address] [address] Melissa Jefferson MD 230 [place] [address] 06/26/2025 2:00 PM EST Office Visit [facility] OPTOMETRY [address] [place] [address] Jaja Mckeon OD 230 [place] [address] documented as of this encounter Goals Goal [...] documented as of this encounter Care Teams Mold Shifter Relationship Specialty Start Date End Date Sammy Reilly MD 230 [place] [address] PCP - General Internal Medicine 12/23/13 12/03/24 Melissa Jefferson MD 230 [place] [address] PCP - General Family Medicine 12/04/24 [employer] 04/08/22 Tj Larose MD Urban And Regional Planner Nephrology 04/10/24 documented as of this encounter
--- OUTSIDE RECORDS SUMMARY | 2025-03-02 13:50 | XMS_ITS | Encounter Summary ---
Author Organization [employer] Address [address] 7t [place] [address] Care Team Providers Care Railroad Supervisor Of Engines Name Role Phone Sammy Reilly MD Primary Care Provide r Melissa Jefferson MD Primary Care Provider [phone] Reason for Visit * Reason Comments Med Refill Encounter Details Date Type Department Care Team (Late st Contact Info) Description 06/16/2024 Refill [facility] MEDICINE 230 [place] [address] Messi Mccollum MD 230 [place], [place] [phone] Uncomplicated opioid dependence (CMS/HCC) Social History Tobacco [...] [facility] MEDICINE [address] [place] [address] Messi Mccollum MD [address] [place] [address] 03/18/2025 9:45 AM EDT Office Visit [facility] MEDICINE [address] [place] [address] Marybeth Campa NP [address] [place] [address] 04/28/2025 11:30 AM EST Office Visit [address] [address] Melissa Jefferson MD [address] [place] [address] 06/26/2025 2:00 PM EST Office Visit [facility] OPTOMETRY [address] [place] [address] Jaja Mckeon, VALERIA 230 [place] [address] documented as of this encounter Goals Goal Patient Goal Type Associated Problems Recent Progress Patient-Stated? Author Check and record your blood sugars as directed Blood Pressure No Jimbo Burris PharmD Short-term: Promote adherence to treatment regimen General No Jimbo Burris PharmD Take your medication every day Lifestyle No Jimbo Burris PharmD documented as of this encounter Visit Diagnoses Diagnosis Uncomplicated opioid dependence (CMS/HCC) (HCC) documented in this encounter Additional Health Concerns Assessment Noted Time PHQ-9 Depression Total Score: 11 024 9:25 AM EDT documented as of this encounter Care Teams Railroad Supervisor Of Engines Relationship Specialty Start Date End Date Sammy Reilly MD 230 [place] [address] PCP - General Internal Medicine 12/23/13 12/03/24 Melissa Jefferson MD 230 [place], [place] [phone] PCP - General Family Medicine 12/04/24 [employer] 04/08/22 Tj Larose MD Blade Grinder Nephrology 04/10/24 documented as of this encounter
--- OUTSIDE RECORDS SUMMARY | 2025-03-02 13:50 | XMS_ITS | Encounter Summary ---
Author Organization [employer] Address [address] [facility] 7t [place] [address] Care Team Providers Care Derrick Follower Name Role Phone Melissa Jefferson MD Primary Care Provider [phone] Reason for Visit * Reason Comments Med Refill Encounter Details Date Type Department Care Team (Late st Contact Info) Description 12/11/[address] [facility] MEDICINE 230 [place] [address] Nolberto Cates MD 230 [place] [address] Uncomplicated opioid dependence (CMS/HCC) Social History Tobacco [...] AM EDT Office Visit [facility] MEDICINE [address] [place] [address] Messi Mccollum MD [address] [place] [address] 03/18/2025 9:45 AM EDT Office Visit [facility] MEDICINE [address] [place] [address] Marybeth Campa NP [address] [place] [address] 04/28/2025 11:30 AM EST Office Visit [address] [address] Melissa Jefferson MD [address] [place] [address] 06/26/2025 2:00 PM EST Office Visit [facility] OPTOMETRY [address] [place] [address] Jaja Mckeon OD 230 [place] [address] documented as of this encounter Goals Goal [...] documented as of this encounter Care Teams Derrick Follower Relationship Specialty Start Date End Date Melissa Jefferson MD 230 [place] [address] PCP - General Family Medicine 12/04/24 [email or web address] 04/08/22 Tj Larose MD Power Shear Operator Nephrology 04/10/24 documented as of this encounter
--- OUTSIDE RECORDS SUMMARY | 2025-03-02 13:50 | XMS_ITS | Encounter Summary ---
Author Organization [employer] Address [address] 7t [place] [address] Care Team Providers Care Day Care Home Provider Name Role Phone Sammy Reilly MD Primary Care Provide r Melissa Jefferson MD Primary Care Provider [phone] Reason for Visit * Reason Comments Med Refill Encounter Details Date Type Department Care Team ([facility] st Contact Info) Description 04/25/2023 Refill [facility] MEDICINE 230 [place] [address] Messi Mccollum MD 230 [place], [place] [phone] Uncomplicated opioid dependence (CMS/HCC) Social History Tobacco [...] Description 03/13/2025 10:00 AM EDT Office Visit [facility] MEDICINE [address] [place] [address] Messi Mccollum MD 230 [place] [address] 03/18/2025 9:45 AM EDT Office Visit [facility] MEDICINE [address] [place] [address] Marybeth Campa NP 230 [place] [address] 04/28/2025 11:30 AM EST Office Visit [facility] MEDICINE [address] [place] [address] Melissa Jefferson MD 230 [place] [address] 06/26/2025 2:00 PM EST Office Visit [facility] OPTOMETRY [address] [place] [address] Jaja Mckeon, VALERIA 230 [place] [address] documented as of this encounter Goals Goal [...] documented as of this encounter Care Teams Day Care Home Provider Relationship Specialty Start Date End Date Sammy Reilly MD 230 [place] [address] PCP - General Internal Medicine 12/23/13 12/03/24 Melissa Jefferson MD 230 [place] [address] PCP - General Family Medicine 12/04/24 [employer] 04/08/22 Tj Larose MD Dietary Aid Nephrology 04/10/24 documented as of this encounter
--- OUTSIDE RECORDS SUMMARY | 2025-03-02 13:50 | XMS_ITS | Encounter Summary ---
Author Organization [employer] Address [address] 7t [place] [address] Care Team Providers Care Ic Design Manager Name Role Phone Sammy Reilly MD Primary Care Provide r Melissa Jefferson MD Primary Care Provider [phone] Encounter Details Date Type Department Care Team (Late st Contact Info) Description 09/26/2024 Orders Only [facility] MEDICINE 230 [place] [address] Jessica Rahman, RN Uncomplicated opioid dependence (CMS/HCC) [...] the past 12 months, has t he [employer], gas, oil or water company threatened to [...] Description 03/13/2025 10:00 AM EDT Office Visit [facility] MEDICINE [address] [place] [address] Messi Mccollum MD [address] [place] [address] 03/18/2025 9:45 AM EDT Office Visit [facility] MEDICINE [address] [place] [address] Marybeth Campa NP [address] [place] [address] 04/28/2025 11:30 AM EST Office Visit [facility] MEDICINE [address] [place] [address] Melissa Jefferson MD [address] [place] [address] 06/26/2025 2:00 PM EST Office Visit [facility] OPTOMETRY [address] [place] [address] Jaja Mckeon, OD 230 [place] [address] documented as of this encounter Goals Goal [...] documented as of this encounter Care Teams Ic Design Manager Relationship Specialty Start Date End Date Sammy Reilly MD 230 [place] [address] PCP - General Internal Medicine 12/23/13 12/03/24 Melissa Jefferson MD 230 [place], [place] [phone] PCP - General Family Medicine 12/04/24 [employer] 04/08/22 Tj Larose MD Heavy Equipment Diesel Mechanic Nephrology 04/10/24 documented as of this encounter
--- OUTSIDE RECORDS SUMMARY | 2025-03-02 13:50 | XMS_ITS | Encounter Summary ---
Author Organization [employer] Address [address] [facility] 7t [place] [address] Care Team Providers Care Lead Programmer Name Role Phone Melissa Jefferson MD Primary Care Provider [phone] Reason for Visit * Reason Comments Med Refill Encounter Details Date Type Department Care Team (Late st Contact Info) Description 12/18/2024 Refill [facility] 230 [place] [address] Sammy Reilly MD 230 [place], [place] [phone] Social History Tobacco Use Types Packs/Day Years [...] Description 03/13/2025 10:00 AM EDT Office Visit [facility] [address] [place] [address] Messi Mccollum MD [address] [place] [address] 03/18/2025 9:45 AM EDT Office Visit [facility] [address] [place] [address] Marybeth Campa NP [address] [place] [address] 04/28/2025 11:30 AM EST Office Visit [address] [address] Melissa Jefferson MD [address] [place] [address] 06/26/2025 2:00 PM EST Office Visit [facility] [address] [place] [address] Jaja Mckeon, OD 230 [place] [address] documented as of this encounter Goals Goal [...] as of this encounter Care Teams Lead Programmer Relationship Specialty Start Date End Date Melissa Jefferson MD 230 [place], [place] [phone] PCP - General Family Medicine 12/04/24 [employer] 04/08/22 Tj Larose MD Polystyrene Molding Machine Tender Nephrology 04/10/24 documented as of this encounter
--- OUTSIDE RECORDS SUMMARY | 2025-03-02 13:50 | XMS_ITS | Encounter Summary ---
Author Organization [employer] Address [address] [facility] [address] 7t [place] [address] Care Team Providers Care Drawing In Machine Tender Name Role Phone Sammy Reilly MD Primary Care Provide r Melissa Jefferson MD Primary Care Provider [phone] Reason for Visit * Reason Comments Med Refill Encounter Details Date Type Department Care Team ([facility] st Contact Info) Description 05/02/2023 Refill [facility] 230 [place] [address] Messi Mccollum MD 230 [place], [place] [phone] Uncomplicated opioid dependence (CMS/HCC) Social History Tobacco [...] Description 03/13/2025 10:00 AM EDT Office Visit [facility] [address] [place] [address] Messi Mccollum MD 230 [place] [address] 03/18/2025 9:45 AM EDT Office Visit [facility] [address] [place] [address] Marybeth Campa NP 230 [place] [address] 04/28/2025 11:30 AM EST Office Visit [facility] [address] [place] [address] Melissa Jefferson MD 230 [place] [address] 06/26/2025 2:00 PM EST Office Visit [facility] [address] [place] [address] Jaja Mckeon, VALERIA 230 [place] [address] documented as of this encounter Goals Goal [...] documented as of this encounter Care Teams Drawing In Machine Tender Relationship Specialty Start Date End Date Sammy Reilly MD 230 [place] [address] PCP - General Internal Medicine 12/23/13 12/03/24 Melissa Jefferson MD 230 [place] [address] PCP - General Family Medicine 12/04/24 Pusher 04/08/22 Tj Larose MD Jitney Driver Nephrology 04/10/24 documented as of this encounter
--- OUTSIDE RECORDS SUMMARY | 2025-03-02 13:50 | XMS_ITS | Encounter Summary ---
Author Organization [employer] Address [address] [facility] 7t [place] [address] Care Team Providers Care Brass Cleaner Name Role Phone Sammy Reilly MD Primary Care Provide r Melissa Jefferson MD Primary Care Provider [phone] Reason for Visit * Reason Comments Med Refill Encounter Details Date Type Department Care Team ([facility] Contact Info) Description 06/20/2022 Refill [facility] [address] [place] [address] Sammy Reilly MD 230 [place], [place] [phone] Primary hypertension (Primary Dx); Uncomplicated opioid dependence [...] Encounters Date Type Department Care Team ([facility] Contact Info) Description 03/13/2025 10:00 AM EDT Office Visit [facility] [address] [place] [address] Messi Mccollum MD 230 [place] [address] 03/18/2025 9:45 AM EDT Office Visit [facility] 230 [place] [address] Marybeth Campa, JOHN 230 [place] [address] 04/28/2025 11:30 AM EST Office Visit [facility] [address] [place] [address] Melissa Jefferson MD 230 [place] [address] 06/26/2025 2:00 PM EST Office Visit [facility] [address] [place] [address] Jaja Mckeon, OD [address] [place] [address] documented as of this encounter Visit Diagnoses Diagnosis Primary hypertension- Primary Unspecified essential hypertension Uncomplicated opioid dependence (CMS/HCC) (HCC) documented in this encounter Care Teams Brass Cleaner Relationship Specialty Start Date End Date Sammy Reilly MD [address] [place] [address] PCP - General Internal Medicine 12/23/13 12/03/24 Melissa Jefferson MD [address] [place] [address] PCP - General Family Medicine 12/04/24 [employer] 04/08/22 Tj Larose MD Mud Tank Operator Nephrology 04/10/24 documented as of this encounter
--- OUTSIDE RECORDS SUMMARY | 2025-03-02 13:50 | XMS_ITS | Encounter Summary ---
Author Organization [employer] Address 75 [facility] 7t [place] [address] Care Team Providers Care Preschool Assistant Name Role Phone Sammy Reilly MD Primary Care Provide r Melissa Jefferson MD Primary Care Provider [phone] Reason for Visit * Reason Onset Date Comments Appointment Request 05/24/2023 Encounter Details Date Type Department Care Team ([facility] st Contact Info) Description 05/24/2023 Telephone [facility] 230 [place], [place] [phone] Sammy Reilly MD 230 [place] [address] Appointment Request Social History Tobacco Use Types [...] AM EST Tc from patients director of critical care calling to request a follow appt with the patients PCP there is no concerns as of right now documented in this encounter Plan of Treatment Upcoming Encounters Date Type Department Care Team (Late st Contact Info) Description 03/13/2025 10:00 AM EDT Office Visit [address] [address] Messi Mccollum MD [address] [place] [address] 03/18/2025 9:45 AM EDT Office Visit [address] [address] Marybeth Campa NP [address] [place] [address] 04/28/2025 11:30 AM EST Office Visit [address] [address] Melissa Jefferson MD [address] [place] [address] 06/26/2025 2:00 PM EST Office Visit [facility] [address] [place] [address] Jaja Mckeon, OD 230 [place] [address] documented as of this encounter Goals Goal [...] documented as of this encounter Care Teams Preschool Assistant Relationship Specialty Start Date End Date Sammy Reilly MD 230 [place] [address] PCP - General Internal Medicine 12/23/13 12/03/24 Melissa Jefferson MD 230 [place] [address] PCP - General Family Medicine 12/04/24 [employer] 04/08/22 Tj Larose MD Children'S Tutor Nephrology 04/10/24 documented as of this encounter
--- OUTSIDE RECORDS SUMMARY | 2025-03-02 13:50 | XMS_ITS | Encounter Summary ---
Author Organization [employer] Address [address] [facility] [address] 7t [place] [address] Care Team Providers Care Lime Plant Operator Name Role Phone Sammy Reilly MD Primary Care Provide r Melissa Jefferson MD Primary Care Provider [phone] Reason for Visit * Reason Comments Med Refill Encounter Details Date Type Department Care Team ([facility] st Contact Info) Description 04/25/2023 Refill [facility] 230 [place] [address] Name, MD Tye 230 [place], [place] [phone] Hypertension secondary to other renal disorders; Primary [...] Description 03/13/2025 10:00 AM EDT Office Visit [facility] [address] [place] [address] Messi Mccollum MD 230 [place] [address] 03/18/2025 9:45 AM EDT Office Visit [facility] [address] [place] [address] Marybeth Campa NP 230 [place] [address] 04/28/2025 11:30 AM EST Office Visit [facility] [address] [place] [address] Melissa Jefferson MD 230 [place] [address] 06/26/2025 2:00 PM EST Office Visit [facility] [address] [place] [address] Jaja Mckeon, VALERIA [address] [place] [address] documented as of this encounter Goals Goal [...] documented as of this encounter Care Teams Lime Plant Operator Relationship Specialty Start Date End Date Sammy Reilly MD 230 [place] [address] PCP - General Internal Medicine 12/23/13 12/03/24 Melissa Jefferson MD 230 [place] [address] PCP - General Family Medicine 12/04/24 [employer] 04/08/22 Tj Larose MD Grain Packer Nephrology 04/10/24 documented as of this encounter
--- OUTSIDE RECORDS SUMMARY | 2025-03-02 13:50 | XMS_ITS | Encounter Summary ---
Author Organization [employer] Address 75 [facility] 7t [place] [address] Care Team Providers Care Day Camp Counselor Name Role Phone Sammy Reilly MD Primary Care Provide r Melissa Jefferson MD Primary Care Provider [phone] Reason for Visit * Reason Onset Date Comments Paperwork/Forms 10/22/2023 Encounter Details Date Type Department Care Team ([facility] st Contact Info) Description 10/22/2023 Telephone [facility] 230 [place], [place] [phone] Sammy Reilly MD 230 [place], [place] [phone] Paperwork/Forms Social History Tobacco Use Types Packs/Day [...] 10:00 AM EDT Office Visit [facility] [address] [place] [address] Messi Mccollum MD [address] [place] [address] 03/18/2025 9:45 AM EDT Office Visit [address] [address] Marybeth Campa NP [address] [place] [address] 04/28/2025 11:30 AM EST Office Visit [address] [address] Melissa Jefferson MD 230 [place] [address] 06/26/2025 2:00 PM EST Office Visit [facility] [address] [place] [address] Mike, Jaja, OD 230 [place] [address] documented as of this encounter Goals Goal [...] as of this encounter Care Teams Day Camp Counselor Relationship Specialty Start Date End Date Sammy Reilly MD 230 [place] [address] PCP - General Internal Medicine 12/23/13 12/03/24 Melissa Jefferson MD 230 [place] [address] PCP - General Family Medicine 12/04/24 [employer] 04/08/22 Tj Larose MD Technical Aide Nephrology 04/10/24 documented as of this encounter
--- OUTSIDE RECORDS SUMMARY | 2025-03-02 13:50 | XMS_ITS | Clinical Summary ---
Author Organization [facility] Address [address] [place] [address] Care Team Providers Care Integrated Logistics Support Manager Name Role Phone Sammy Strickland MD Primary [...] 12/19/2024 COVID-19 Vaccine ( season) 2025 Insurance [facility] Advance Directives * Full Code (Latest Code Status on File) Date Activated Date Inactivated Comments 03/27/2022 6:52 AM Care Teams Integrated Logistics Support Manager Relationship Specialty Start Date End Date Sammy Strickland MD [address] [place] [address] PCP - General 03/27/22
--- OUTSIDE RECORDS SUMMARY | 2025-03-02 13:50 | XMS_ITS | Encounter Summary ---
Author Organization [facility] Address [address] [place] [address] Phone Care Team Providers Care Seam Stayer Name Role Phone Unavailable Primary Care Provider Unavailabl e Encounter Details Date Type Department Care Team (Late st Contact Info) Description 07/18/2022 Telephone [facility] [address] [place] [phone] Concepción Cruz [place] Social History Tobacco Use [...]
--- OUTSIDE RECORDS SUMMARY | 2025-03-02 13:51 | XMS_ITS | Encounter Summary ---
Author Organization [employer] Address 75 [facility] 7t [place] [address] Care Team Providers Care Mailing Jogger Name Role Phone Sammy Reilly MD Primary Care Provide r Melissa Jefferson MD Primary Care Provider [phone] Reason for Visit * Reason Comments Med Refill Encounter Details Date Type Department Care Team (Late Contact Info) Description 02/12/2023 Refill [facility] MEDICINE [address] [place] [address] Margarita Rob ANP 230 [place], [place] [phone] Social History Tobacco Use Types Packs/Day Years [...] Department Care Team (Late Contact Info) Description 03/13/2025 10:00 AM EDT Office Visit [facility]ICINE [address] [place] [address] Messi Mccollum MD 230 [place] [address] 03/18/2025 9:45 AM EDT Office Visit [facility] 230 [place] [address] Marybeth Campa NP 230 [place] [address] 04/28/2025 11:30 AM EST Office Visit [facility] [address] [place] [address] Melissa Jefferson MD 230 [place] [address] 06/26/2025 2:00 PM EST Office Visit [facility] OPTOM[facility] [address] [place] [address] [phone] Jaja Mckeon, OD 230 [place] [address] documented as of this encounter Goals Goal [...] documented as of this encounter Care Teams Mailing Jogger Relationship Specialty Start Date End Date Sammy Reilly MD [address] [place] [address] PCP - General Internal Medicine 12/23/13 12/03/24 Melissa Jefferson MD [address] [place] [address] PCP - General Family Medicine 12/04/24 [employer]umi[employer] 04/08/22 Tj Larose MD Auto Glass Installer Nephrology 04/10/24 documented as of this encounter
--- OUTSIDE RECORDS SUMMARY | 2025-03-02 13:51 | XMS_ITS | Encounter Summary ---
Author Organization [employer] Address 75 [facility] 7t [place] [address] Care Team Providers Care Blueprint Trimmer Name Role Phone Sammy Reilly MD Primary Care Provide r Melissa Jefferson MD Primary Care Provider [phone] Reason for Visit * Reason Onset Date Comments Referral 09/14/2022 Encounter Details Date Type Department Care Team ([facility] st Contact Info) Description 09/14/2022 Telephone [facility] 230 [place], [place] [phone] Sammy Reilly MD 230 [place], [place] [phone] Referral Social History Tobacco Use Types Packs/Day [...] appt. Heidy stated Chelly who is her CONVENTION MANAGER is the only who fully care for her and keeps her going to appts, she also has [facility] that come 2x a day and an COMPUTER SYSTEMS TECHNICIAN that comes to check up on her as well. Heidy verbalized understanding and denied having any further questions or concerns at this time. * Telephone Encounter - Brandee Christie - 09/14/2022 10:32 AM EDT Tc from Heidy Bahena Nurse with [facility] requesting a status on other two referral for Pulmonary and GI. Please contact Heidy at [phone] documented in this encounter Plan of Treatment Upcoming Encounters Date Type Department Care Team (Late st Contact Info) Description 03/13/2025 10:00 AM EDT Office Visit [facility] [address] [place] [address] Messi Mccollum MD [address] [place] [address] 03/18/2025 9:45 AM EDT Office Visit [address] [address] Marybeth Campa NP [address] [place] [address] 04/28/2025 11:30 AM EST Office Visit [address] [phone] Melissa Jefferson MD 230 [place] [address] 06/26/2025 2:00 PM EST Office Visit [facility] OPT[facility] [address] [place] [address] MikeJaja hunt, OD [address] [place] [address] documented as of this encounter Visit Diagnoses Diagnosis Uncomplicated opioid dependence (CMS/HCC) (HCC) documented in this encounter Care Teams Blueprint Trimmer Relationship Specialty Start Date End Date Sammy Reilly MD 230 [place] [address] PCP - General Internal Medicine 12/23/13 12/03/24 Melissa Jefferson MD [address] [place] [address] PCP - General Family Medicine 12/04/24 [employer] 04/08/22 Tj Larose MD Executive Team Leader Nephrology 04/10/24 documented as of this encounter
--- OUTSIDE RECORDS SUMMARY | 2025-03-02 13:51 | XMS_ITS | Encounter Summary ---
Author Organization [employer] Address 75 [facility] 7t [place] [address] Care Team Providers Care Forest Worker Name Role Phone Sammy Reilly MD Primary Care Provide r Melissa Jefferson MD Primary Care Provider [phone] Reason for Visit * Reason Comments Med Refill Encounter Details Date Type Department Care Team (Late Contact Info) Description 02/12/2023 Refill [facility] MEDICINE [address] [place] [address] Lois Garrett MD [address] [place] [address] Hypertension secondary to other renal disorders Social [...] Description 03/13/2025 10:00 AM EDT Office Visit [facility] MEDICINE [address] [place] [address] Messi Mccollum MD 230 [place] [address] 03/18/2025 9:45 AM EDT Office Visit [facility] [address] [place] [address] Marybeth Campa NP 230 [place] [address] 04/28/2025 11:30 AM EST Office Visit [address] [address] Melissa Jefferson MD 230 [place] [address] 06/26/2025 2:00 PM EST Office Visit [facility] OPTOMETRY [address] [place] [address] Jaja Mckeon, OD [address] [place] [address] documented as of this encounter Goals Goal [...] documented as of this encounter Care Teams Forest Worker Relationship Specialty Start Date End Date Sammy Reilly MD [address] [place] [address] PCP - General Internal Medicine 12/23/13 12/03/24 Melissa Jefferson MD [address] [place] [address] PCP - General Family Medicine 12/04/24 [employer] 04/08/22 Tj Larose MD Ve Teacher Nephrology 04/10/24 documented as of this encounter
--- OUTSIDE RECORDS SUMMARY | 2025-03-02 13:51 | XMS_ITS | Encounter Summary ---
Author Organization [facility] Address [address] [place] [address] Phone Care Team Providers Care Customer Service Coordinator Name Role Phone Unavailable Primary Care Provider Unavailabl e Encounter Details Date Type Department Care Team (Late st Contact Info) Description 11/10/2021 Office Communication [facility] [address] [place] [address] Sigrid Hollingsworth, CELIO Social History [...]
--- OUTSIDE RECORDS SUMMARY | 2025-03-02 13:51 | XMS_ITS | Clinical Summary ---
Author Organization [employer] Address [address] [facility] [facility] [address] [place] [address] Care Team Providers Care Tip Stitcher Name Role Phone Melissa Jefferson MD Primary Care Provider [phone] Allergies No known active allergies Medications * This document contains information received from the source organization and may not represent a complete record from that organization. sennosides (Senokot) 8.6 MG tablet TAKE 2 TABLETS BY MOUTH AT BEDTIME 022 Active Spacer/Aero-Hol ding Chambers (Compact Space Chamber) deviceIndicatio ns:Setswana Space chamber use with albuterol pump Active [...] blood sugar. 50 tablet 12 024 Active albuterol (Ventolin HFA) 108 (90 Base) MCG/ACT inhalerIndicati ons:Chronic obstructive pulmonary disease, unspecified COPD type (CMS/HCC) ([facility]) INHALE 2 PUFFS BY MOUTH EVERY 4 TO 6 HOURS NEEDED FOR COUGH, WHEEZING, OR SHORTNESS OF BREATH 18 g 3 025 Active albuterol (2.5 MG/3ML) 0.083% nebulizer solutionIndicat ions:Chronic obstructive pulmonary disease, unspecified COPD type (CMS/HCC) ([facility]) INHALE 1 AMPULE USING A NEBULIZER EVERY 6 HOURS NEEDED FOR WHEEZING 90 mL 3 025 Active mupirocin (Bactroban) 2 % ointmentIndicat ions:Chronic obstructive pulmonary disease, unspecified COPD type (CMS/HCC) ([facility]) APPLY TOPICALLY TO THE AFFECTED AREA(S) THREE [...] DAY 30 tablet 11 025 Active B Yuomdax-W-Abhop Acid (Elle-Sharifa Rx) 1 MG tablet TAKE [...] Once per day. 90 tablet 025 Active pantoprazole (ProtoNix) 40 MG EC [...] dialysis, with long-term current use of insulin ([facility]) USE TO TEST BLOOD SUGAR THREE TIMES DAILY 100 strip 11 025 Active lactulose (Chronulac) 10 GM/15ML solutionIndicat ions:Constipati on, unspecified constipation type GIVE 15 ML BY MOUTH EVERY DAY NEEDED FOR CONSTIPATION 473 mL 3 025 Active buprenorphine-n aloxone (Suboxone) 12-3 MG per sublingual filmIndications :Uncomplicated opioid dependence (CMS/HCC) ([facility]) Place 1 Film under the tongue Once per day. 1/2 film under tongue twice daily. Do not start before December 19, 2024. 28 Film 2 2024 Active ondansetron (Zofran) 4 MG tabletIndicatio [...] 0 Refills, Maintenance, 11/26/24 4:51:00 PM EDT, [facility], Partial fill upon patient request if the prescription is for a schedule II opioid drug., Follow instructions from GI, 155, cm, 11/26/24 14:51:00 EDT, Height, 65.5, kg, 11/04/24 0:54:00 EDT, Dry Weight Active mirtazapine (Remeron) 30 MG tablet Take 30 mg by mouth at bedtime. Active polyethylene glycol, PEG, 3350 (Glycolax) 17 GM/SCOOP powder TAKE 17 GM MIXED IN 8 OUNCES OF WATER ONCE DAILY 510 g 2 Active isosorbide dinitrate (Isordil) 30 MG tabletIndicatio ns:Hypertension secondary to other renal disorders TAKE 1 TABLET BY MOUTH THREE TIMES DAILY 90 tablet 2 Active Diclofenac Sodium 1 % gelIndications: Left ankle swelling APPLY 2 GRAMS TO AFFECTED AREA(S) TWICE DAILY DIRECTED 100 g 2 Active Diclofenac Sodium 1 % gelIndications: Chronic midline low back pain without sciatica APPLY 2 GRAMS TO AFFECTED AREA(S) TWICE DAILY DIRECTED 100 g 2 025 2024 Discontinued(R eorder (will not trigger notification to Pharmacy)) isosorbide dinitrate (Isordil) 30 MG tabletIndicatio ns:Hypertension secondary to other renal disorders TAKE 1 TABLET BY MOUTH THREE TIMES DAILY 90 tablet 2 025 2024 Discontinued polyethylene glycol, PEG, 3350 (Glycolax) 17 GM/SCOOP powder Mix 17g (1 capful) in 8 ounces of water and take by mouth every day 510 g 2 025 2024 Discontinued Active Problems Problem Noted Date Diagnosed Date Acute respiratory failure, u nspecified whether with hypoxia or hypercapnia 02/12/2025 Assessment & Plan (02/16/2025 10:25 AM EDT): Referred to hospital for impending respiratory failure EMS called and handoff given to grocery buyer on scene Acute pancreatitis 02/12/2025 Depression 02/12/2025 Chronic GERD 02/12/2025 Illiterate 02/12/2025 Primary localized osteoarthritis of knees, bilat eral 02/12/2025 Pulmonary edema 02/12/2025 Hx of non-ST elevation myocardial infarction (NS KAYLA) 10/16/2024 Uncontrolled hypertension 09/12/2024 Assessment & Plan (11/03/2024 4:31 PM EDT): Patient is clinically asymptomatic I called today her VNA Heidy and her oleo hasher and renderer Tj Larose MD at [phone], he tells me he is tired during [...] follow up instructions and follow-up also with oleo hasher and renderer at dialysis sessions Assessment & Plan (09/12/2024 [...] to emergency room or call the ambulance Right foot pain 09/12/2024 Assessment & Plan (09/12/2024 4:17 PM EDT): I refer patient to podiatry Uncomplicated opioid dependence (CMS/HCC) 2024 Hepatitis C virus infection, unspecified chronic ity 12/03/2023 Hyperkalemia 10/18/2023 Assessment & Plan (10/18/2023 9:17 AM EDT): Pt recently [place] [facility] [place]. Pt's K improved after Lokelma and HD. Her Losartan was discontinued as well Plan: Repeat BMP Hospital discharge follow-up 10/18/2023 Assessment & Plan (07/15/2024 3:41 PM EST): Pt recently admitted [place] [facility] [place] 05[place] until 06/04 after sresented to ER with altered MS and SOB. Found to have hyperkalemia 6.6, HTN, pulmonary edema needing BiPAP support. Undergone emergent dialysis. Also found to have acute pancreatitis with elevated lipase (trended down during hospital stay). Had GI, Nephrology, and Psychiatry consultations while inpatient. Assessment & Plan (10/18/2023 9:17 AM EDT): Pt recently admitted to [facility] 10/16/2023 for hyperkalemia. Pt's K improved after Lokelma and HD. Her Losartan was discontinued as well Plan: Repeat BMP Rectal prolapse 10/18/2023 Assessment & Plan (09/12/2024 4:17 PM EDT): I took today to Heidy her VNA she tells me she does have an upcoming appointment with surgery she does not know exactly the date tells me PANTRY CHEF knows, I tried to contact also PANTRY CHEF but I was unsuccessful I advised patient to be sure she has that appointment and do not miss it Assessment & Plan (07/15/2024 4:01 PM EST): Televisit Pt is well known to the office of General surgeon Dr. Edmundo Mendez who last saw her on 06/16/2024 Patient requested a second opinion at [facility] to discuss her options. Pt was [...] by Dr. Natalie Thrasher General surgeon at [facility] for a full colonoscopy Assessment & Plan (03/11/2024 9:23 AM EDT): Pt here for a follow up after she was seen again at [facility] [place] with c/o rectal [...] basis. Patient requested a second opinion at [facility] to discuss her options. This referral has been placed, appointment has been scheduled for 05/22/2024 Assessment & Plan (10/18/2023 10:01 AM EDT): Patient with a rectal prolapse Plan: Stat referral to colorectal surgeon Dr Edmundo Luis Chronic diastolic congestive heart failure 06/27 Assessment & Plan (07/15/2024 4:07 PM EST): Pt previously admitted to [facility] [place] 03/10/22-03/13/22 for further management with a diagnosis of Acute hypoxemic respiratory failure possibly due to fluid overload/ESRD. Patient received HD and improved. Pt was subsequently readmitted to [facility] [place] 03/26/22 - 03/27/22 for CHF, hypoxia and ESRD Patient admitted at [facility] from 03/27/22 - 04/07/22. ProBNP elevated >70,000 on 03/27. volume status improved after dyalisis on 03/27. ECHO showed EF 45% . Cardiology consult recommended outpt ischemic work up. [facility] [place] called pt on 11/14/23 to schedule new patient appt, they LVM and sent letter out to book. LB She never went to see laborer shaft sinking will refer back Assessment & Plan (10/18/2023 9:34 AM EDT): Pt previously admitted to [facility] [place] 03/10/22-03/13/22 for further management with a diagnosis of Acute hypoxemic respiratory failure possibly due to fluid overload/ESRD. Patient received HD and improved. Pt was subsequently readmitted to [facility] [place] 03/26/22 - 03/27/22 for CHF, hypoxia and ESRD Patient admitted at [facility] from 03/27/22 - 04/07/22. ProBNP elevated >70,000 on 03/27. volume status improved after dyalisis on 03/27. ECHO showed EF 45% . Cardiology consult recommended outpt ischemic work up. She never went to see laborer shaft sinking will refer back Assessment & Plan (12/28/2022 10:03 AM EDT): Pt previously admitted to [facility] [place] 03/10/22-03/13/22 for further management with a diagnosis of Acute hypoxemic respiratory failure possibly due to fluid overload/ESRD. Patient received HD and improved. Pt was subsequently readmitted to [facility] [place] 03/26/22 - 03/27/22 for CHF, hypoxia and ESRD Patient admitted at [facility] from 03/27/22 - 04/07/22. ProBNP elevated >70,000 on 03/27. volume status improved after dyalisis on 03/27. ECHO showed EF 45% . Cardiology consult recommended outpt ischemic work up. Pt Tells me she finally went to see the Metal Furnace Operator . 3 months ago records requested Renal [...] for a follow up, seen at our [facility] after pt reported 7 days w/o BM, [...] visit today but promised to go to [facility] [place] tomorrow AM. Will request status check next business day (10/02/22) Zofran refilled per request, however reviewed med safety and SE Follow up as needed, patient in agreement with plan End-stage renal disease on hemodialysis (CMS/HCC ) 04/17/2022 Assessment & Plan (07/15/2024 4:15 PM EST): [...] the past Plan: ortho evaluation Mastodynia 06/25/2012 Mantoux: positive 11/29/2011 Osteoarthritis of knee 11/29/2011 [...] w/ pt Combined drug dependence excluding opioids ([facility]) 11/02/2011 Assessment & Plan (12/28/2022 9:50 AM EDT): [...] HD Using Adult diapers Moderate major depression (CMS/HCC) 05/21/1958 Assessment & Plan (11/03/2024 4:30 PM EDT): Today called N for patient so she had she can be established with a therapist and likely psychiatrist Resolved Problems Problem Noted Date Diagnosed Date Resolved Date Chronic renal failure 02/12/20252024 Hemorrhoids that prolapse wi th straining, but retract spontaneously 02/12/2025 02/16/2025 Intermittent asthma 02/12/2025 02/17/20 Opioid abuse 02/12/2025 02/16/2025 Vaginal itching 09/12/2024 02/16/2025 Assessment & Plan (09/12/2024 4:15 PM EDT): I will prescribe clotrimazole cream empirically and also fluconazole pill for the vaginal itchiness BV test done patient will be contacted with results Hemorrhoids 09/06/2023 02/16/2025 Assessment & Plan (09/06/2023 2:09 PM EDT): [...] Mammogram: 01/25/2019 , referred missed appointment previously, PANTRY CHEF tells me she will make the appointment Pap Smear: NL 05/29/2018 Colonoscopy: 07/03/2007, While in the Hospital seen by Dr. Schroeder 05/2022 underwent colonoscopy to mid transverse colon limited as patient refused prepped no colitis or proctitis, noted to have normal mucosa GI recommend to advance diet COVID-19 05/09/2022 06/27/2022 Obesity 11/29/2011 02/16/2025 Encounters Date Type Department Care Team Description 03/02/2025 1:20 PM EDT Office Visit [facility] [address] [place] [phone] Left ankle swelling (Primary Dx); Elevated blood pressure reading; Swelling of both lower extremities 03/02/2025 Travel 02/27/[address] [address] Melissa Jefferson MD Nurse Triage 02/27/[address] [address] Melissa Jefferson MD Nurse Triage 02/25/2025 Patient Outreach [facility] [address] [place], [place] [phone] Melissa Jefferson MD Transition Of Care (Tcm) (HDF unscheduled. ) 02/15/2025 Refill [facility] [address] [place], [place] [phone] Sammy Reilly MD Hypertension secondary to other renal disorders 02/13/2025 1:45 PM EDT Office Visit [facility] MED[facility] [address] [place] [phone] Melissa Jefferson MD Acute respiratory failure, unspecified whether with hypoxia or hypercapnia (CMS/HCC) (Primary Dx); Dietary counseling; Exercise counseling; Chronic obstructive pulmonary disease, unspecified COPD type (CMS/HCC) 02/13/2025 Orders Only [facility] External Provider, [facility] 02/13/[address] [address] Melissa Jefferson MD Ambulance transport 02/13/2025 Travel 02/11/2025 Telephone [facility] [address] [place] [address] Melissa Jefferson MD chart prep 02/05/2025 Patient Outreach [facility] [address] [place] [address] Melissa Jefferson MD Pre-visit Planning (SDOH screening completed on 07/15/2024) 01/15/2025 Refill [facility] [address] [place] [address] Melissa Jefferson MD 01/01/2025 Refill [facility] [address] [place] [address] Melissa Jefferson MD Nausea 12/19/2024 1:00 PM EDT Clinical Support [facility] [address] [place] [address] Jessica Rahman, CELIO Uncomplicated opioid dependence ([facility]) 12/19/2024 Travel 12/18/2024 Refill [facility] [address] [place] [address] Melissa Jefferson MD Nausea 12/18/2024 Refill [facility] [address] [place] [address] Sammy Reilly MD 12/12/2024 Refill [facility] [address] [place] [address] Jessica Rahman, RN Uncomplicated opioid dependence ([facility]) 12/12/2024 Refill [facility] [address] [place] [address] Jessica Rahman, CELIO 12/11/2024 Refill [facility] [address] [place] [address] Nolberto Cates MD Uncomplicated opioid dependence ([facility]/HCC) 12/04/2024 Telephone [facility] [address] [place] [address] Sammy Reilly MD Change PCP 12/03/2024 11:30 AM EDT Procedure Visit [facility] [address] [place] [phone] Geena Umana CNM Need for vaccination (Primary Dx); Breast cancer screening by mammogram; Encounter for immunization 12/03/2024 Travel 12/02/2024 Telephone [facility] [address] [facility] [place] [address] Geena Umana CNM CHART PREP from Last 3 Months Immunizations Immunization Administration [...] 16 03/02/2025 1:12 PM EDT Oxygen Saturation 85% 02/13/2025 1:41 PM EDT Inhaled Oxygen Concentration - - Weight 63 kg (138 lb 12.8 oz) 03/02/2025 1:12 PM EDT Height 154.9 cm (5' 1 ) 03/02/2025 1:12 PM EDT Body Mass Index 26.23 03/02/2025 1:12 PM EDT Plan of Treatment Upcoming Encounters Date Type Department Care Team (Late st Contact Info) Description 03/13/2025 10:00 AM EDT Office Visit [facility] [address] [place] [address] Messi Mccollum MD [address] [place] [address] 03/18/2025 9:45 AM EDT Office Visit [facility] [address] [place] [address] Marybeth Campa NP [address] [place] [address] 04/28/2025 11:30 AM EST Office Visit [facility] [address] [place] [address] Melissa Jefferson MD [address] [place] [address] 06/26/2025 2:00 PM EST Office Visit [facility] OPTOMETRY [address] [place], [place] [phone] MikeJaja hunt, OD [address] [place] [address] Health Maintenance Due Date Last Done Comments [...] Oral Exam 09/29/2023 03/30/2023 Mammogram 11/06/2024 11/07/2023, 1111/2018, 01/30/2018 COVID-19 Vaccine ( season) 2025 05/10/2023, 03/03/2022, 05/17/2021, Additional history exists Depression Monitoring 03/05/2025 09/03/2024, [...] Hepatitis B Vaccines Completed 12/03/2024, 04/09/2003, 11/17/1999 Influenza Vaccine Completed 02/10/2025, , 02/26/2021, Additional history exists HIB Vaccines Aged Out [...] Name Priority Date/Time Associated Diagnosis Comments XR KUB AND UPRIGHT 2 VIEWS Routine 02/18/2025 11:10 AM EDT XR CHEST 1 VIEW Routine 02/17/2025 1:22 PM EDT POCT GLYCATED HEMOGLOBIN, TOTAL Routine 09/03/2024 2:47 PM EDT Type 2 diabetes mellitus with chronic kidney disease on chronic dialysis, with long-term current use of insulin ([facility]) THINPREP IMAGING PAP AND HPV MRNA E6/E7 [...] Recently Relevant to Health Maintenance Results * XR KUB and Upright 2 Views (02/18/2025 11:10 AM EDT) Anatomical Region Laterality Modality Radiographic Bety ging 02/18/2025 11:1 0 AM EDT Narrative 02/18/2025 11:53 AM EDT [address] [address] XRay Report Signed Patient: Cruz Muller MR#: [id number] : 1955 Acct:[id number] Age/Sex: 69 / F ADM Date: 02/13/25 Loc: [facility] 482-[address]: Davis Huggins MD Ordering Physician: Davis Huggins MD Date of Service: 02/18/25 Procedure(s): XR KUB Accession Number(s): [id number] cc: Melissa Jefferson; Davis Huggins MD Reason for Exam: vomiting, abdominal pain EXAMINATION: XR ABDOMEN 1 VIEW (KUB) HISTORY: vomiting, abdominal pain COMPARISON: Comparison is made with the prior examination dated 10/08/2023. FINDINGS: A single supine view of the abdomen is submitted. The bowel gas pattern is unremarkable, without evidence of mechanical obstruction. There is a large amount of stool throughout the colon. No abnormal calcifications are identified. There are no abnormal soft tissue masses. The bones are intact. XR/XR KUB IMPRESSION: Large amount of stool throughout the colon. Electronically signed by: Ton Hurtado MD 02/18/2025 11:50 AM EDT RP Dictated By: Ton Hurtado MD Signed By: <Electronically signed by Ton Hurtado MD in OV> 02/18/25 1150 DD/ 1110 TD/TT: 02/18/25 1140 Marine Electrician Helper: Procedure Note Donotuseinterpreter, Image - 02/18/2025 [place] [address] XRay Report Signed Patient: Cruz MullerMR#: [id number] : 1955cct:[id number] Age/Sex: 69 / FADM Date: 02/13/25 Loc: [facility] 482-[address]: Davis Huggins MD Ordering Physician: Davis Huggins MD Date of Service: 02/18/25 Procedure(s): XR KUB Accession Number(s): [id number] cc: Melissa Jefferson; Davis Huggins MD Reason for Exam: vomiting, abdominal pain EXAMINATION: XR ABDOMEN 1 VIEW (KUB) HISTORY: vomiting, abdominal pain COMPARISON: Comparison is made with the prior examination dated 10/08/2023. FINDINGS: A single supine view of the abdomen is submitted. The bowel gas pattern is unremarkable, without evidence of mechanical obstruction. There is a large amount of stool throughout the colon. No abnormal calcifications are identified. There are no abnormal soft tissue masses. The bones are intact. XR/XR KUB IMPRESSION: Large amount of stool throughout the colon. Electronically signed by: Ton Hurtado MD 02/18/2025 11:50 AM EDT RP Dictated By: Ton Hurtado MD Signed By: <Electronically signed by Ton Hurtado MD in OV> 02/18/25 1150 DD/ 1110 TD/TT: 02/18/25 1140 Marine Electrician Helper: [facility] External Provider IMG XR PROCEDURES Final Result * XR Chest 1 View (02/17/2025 1:22 PM EDT) Anatomical Region Laterality Modality Chest Radiographic Bety ging 02/17/2025 1:22 PM EDT Narrative 02/17/2025 2:20 PM EDT [place] [address] XRay Report Signed Patient: Cruz Muller MR#: [id number] : 1955 Acct:[id number] Age/Sex: 69 / F ADM Date: 02/13/25 Loc: [facility] 482-[address]: Davis Huggins MD Ordering Physician: Davis Huggins MD Date of Service: 02/17/25 Procedure(s): XR chest 1V Accession Number(s): [id number] cc: Melissa Jefferson; Davis Huggins MD Reason for Exam: hypoxia post HD, pulmonary crackles EXAMINATION: XR CHEST CLINICAL INFORMATION: hypoxia post HD, pulmonary crackles COMPARISON: 02/13/2025 TECHNIQUE: Frontal view of the chest was obtained. FINDINGS: Right IJ central catheter is unchanged. Heart size is upper limits of normal. There is mild blunting the left costophrenic angle. There are coarse interstitial lung markings. Fluid tracking along the minor fissure on the prior study has resolved. Minimal streaky opacities are noted along the left hemidiaphragm. XR/XR chest 1V IMPRESSION: Left basilar atelectasis, early pneumonia not ruled out. Trace left pleural effusion. Cardiomegaly. Possible mild pulmonary vascular congestion. Electronically signed by: Rajendra Quinn MD 02/17/2025 02:17 PM EDT RP Dictated By: Rajendra Quinn MD Signed By: <Electronically signed by Rajendra Quinn MD in OV> 02/17/25 1417 DD/ 1322 TD/TT: 02/17/25 1406 Marine Electrician Helper: Procedure Note Donotuseinterpreter, Image - 02/17/[address] [address] XRay Report Signed Patient: Cruz MullerMR#: [id number] 460 : 6Acct:[id number] Age/Sex: 69 / FADM Date: 02/13/25 Loc: [facility] 482-[address]: Davis Huggins MD Ordering Physician: Davis Huggins MD Date of Service: 02/17/25 Procedure(s): XR chest 1V Accession Number(s): [id number] cc: Melissa Jefferson; Davis Huggins MD Reason for Exam: hypoxia post HD, pulmonary crackles EXAMINATION: XR CHEST CLINICAL INFORMATION: hypoxia post HD, pulmonary crackles COMPARISON: 02/13/2025 TECHNIQUE: Frontal view of the chest was obtained. FINDINGS: Right IJ central catheter is unchanged. Heart size is upper limits of normal. There is mild blunting the left costophrenic angle. There are coarse interstitial lung markings. Fluid tracking along the minor fissure on the prior study has resolved. Minimal streaky opacities are noted along the left hemidiaphragm. XR/XR chest 1V IMPRESSION: Left basilar atelectasis, early pneumonia not ruled out. Trace left pleural effusion. Cardiomegaly. Possible mild pulmonary vascular congestion. Electronically signed by: Rajendra Quinn MD 02/17/2025 02:17 PM EDT RP Dictated By: Rajendra Quinn MD Signed By: <Electronically signed by Rajendra Quinn MD in OV> 02/17/25 1417 DD/ 1322 TD/TT: 02/17/25 1406 Marine Electrician Helper: [facility] External Provider IMG XR PROCEDURES Final Result * POCT HGB A1C (09/03/2024 2:47 PM EDT) Hemoglobin A1C 5.8 4.0 - 6.0 % QC Media Lot # [id number] Lot# Expiration Date [id number] Blood 09/03/2024 2:47 PM EDT [facility] POINT OF CARE TEST ENTER/EDIT OR DERABLES Final Result * ThinPrep Imaging Pap and HPV mRNA E6/E7 (12/05/2023 9:53 AM EDT) HPV nRNA E6/E7 Not Detected Not Detected [facility] Comment:Methodology: Transcr iption-Mediated AmplificationThis assay detects E6/E7 viral messenger RNA (mRNA) from 14high-risk HPV types (16,18,31,33,35,39,45,51,52,56,58,59,66,68).Cervical sources are required for HPV testing.If a vaginal source from a patient who has had atotal hysterectomy with removal of cervix wassubmitted, please contact the testing laboratoryfor alternative testing options.For additional information, please refer [email or web address]/[email or web address](This link if provided for information/educational purposes only.)THIS TEST WAS PERFORMED AT:[employer] [place] [id number] JUNE MD SOURCE: SEE NOTE [facility] Comment:None given Report Status: TNP [facility] Clinical Information: SEE NOTE [facility] Comment:None given LMP: SEE NOTE [facility] Comment:NONE GIVEN Prev. PAP: SEE NOTE [facility] Comment:NONE GIVEN Prev. BX: SEE NOTE [facility] Comment:NONE GIVEN Statement Of Adequacy: SEE NOTE [facility] Comment:Satisfactory for amandeep luation.Endocervical/transformation zone component absent. General Categorization: [facility] Interpretation/Result: SEE NOTE [facility] Comment:Cytology Results: Ne gative for intraepitheliallesion or malignancy. Cytology Comment SEE NOTE [facility] Comment:This Pap test has be en evaluated with computerassisted technology. Commercial Intern: SEE NOTE [facility] Comment:DMM, CT(ASCP)CT scre ening location: [place] [address] Review Commercial Intern: [facility] Pathologist [facility] PAP Infection [facility] See Note SEE NOTE [facility] Comment:EXPLANATORY NOTE:The Pap is a screening test for cervical cancer. It isnot a diagnostic test and is subject to false negativeand false positive results. It is most reliable when asatisfactory sample, regularly obtained, is submittedwith relevant clinical findings and history, and whenthe Pap result is evaluated along with historic andcurrent clinical information. 12/05/2023 9:53 AM EDT 12/05/2023 4:42 PM EDT Narrative [facility] - 12/12/2023 5:23 PM EDT SEE SCANNED RESULTS IN EMR Geena Umana CNM LAB PATHOLOGY ORDERABLES Final Result [facility] [address] [place] [address] [phone] * BI Mammogram Screening Tomosynthesis Bilateral (11/07/2023 2:55 PM EDT) Anatomical Region Laterality Modality Breast Bilateral Mammography 11/07/2023 2:55 PM EDT Narrative 12/05/2023 11:54 AM EDT [facility] [address] [place] [address] Mammography Report Signed Patient: Cruz Muller MR#: [id number] : 1955 Acct:[id number] Age/Sex: 68 / F ADM Date: 11/07/23 Loc: HO.MAMMO Attending Dr: Sammy Vicente MD Ordering Physician: Sammy Vicente MD Resu lts: 1Negative Date of Service: 11/07/23 Follow Up: 1 Year From Orig inal Mammogram Procedure(s): MM tomosynthesis screening BI Accession Number(s): [id number] cc: Sammy Vicente MD EXAMINATION: MM SCREENING [...] in OV> 12/05/23 1150 DD/ 1455 TD/TT: Marine Electrician Helper: Procedure Note Donotuseinterpreter, Image - 12/05/2023 [facility] [address] [place] [address] Dr. 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 LDL-C is now calculated using the Chaitanya-Villarreal calculation, which is a validated novel method providing better accuracy than the Friedewald equation in the estimation of LDL-C. Chaitanya SS et al. CARLOS. 2013;310(19): 3556-2823 (http://education.[employer].uTaP/faq/KDW849) Non-HDL Cholesterol 175(H) <130 mg/dL (calc) [facility] Comment: For patients with diabetes plus 1 major ASCVD risk factor, treating to a non-HDL-C goal of <100 mg/dL (LDL-C of <70 mg/dL) is considered a therapeutic option. Triglycerides 213(H) <150 mg/dL [facility] Comment: If a non-fasting specimen was collected, consider repeat triglyceride testing on a fasting specimen if clinically indicated. Walsh et al. J. of Clin. Lipidol. 2015;9:129-169. 11/23/2020 9:54 AM EDT Sammy Whitehead MD LAB BLOOD ORDERABLES Final Result [facility] [address] from Last 3 Months or Most Recently Relevant to Health Maintenance Insurance [facility] [employer] (HMO D-SNP) [facility] [address] STANDARD Care Teams Tip Stitcher Relationship Specialty Start Date End Date Melissa Jefferson MD [address] [place] [address] PCP - General Family Medicine 12/04/24 [employer] 04/08/22 Tj Larose MD Tank Maker Wood Nephrology 04/10/24
--- OUTSIDE RECORDS SUMMARY | 2025-03-02 13:51 | XMS_ITS | Encounter Summary ---
Author Organization [employer] Address [address] [facility] 7t [place] [address] Care Team Providers Care Panel Builder Name Role Phone Sammy Reilly MD Primary Care Provide r Melissa Jefferson MD Primary Care Provider [phone] Reason for Visit * Reason Comments Med Refill Encounter Details Date Type Department Care Team (Late Contact Info) Description 02/09/[address] [facility] MEDICINE [address] [place] [address] Lois Garrett MD [address] [place], [place] [phone] Primary insomnia Social History Tobacco Use Types [...] [facility] MEDICINE [address] [place] [address], [place] [address] Messi Mccollum MD [address] [place] [address] 03/18/2025 9:45 AM EDT Office Visit [facility] [address] [place] [address] Marybeth Campa NP [address] [place] [address] 04/28/2025 11:30 AM EST Office Visit [address] [address] Melissa Jefferson MD [address] [place] [address] 06/26/2025 2:00 PM EST Office Visit [facility] OPTOMETRY [address] [place] [address] Jaja Mckeon, OD [address] [place] [address] documented as of this encounter Goals Goal [...] documented as of this encounter Care Teams Panel Builder Relationship Specialty Start Date End Date Sammy Reilly MD [address] [place] [address] PCP - General Internal Medicine 12/23/13 12/03/24 Melissa Jefferson MD [address] [place] [address] PCP - General Family Medicine 12/04/24 [employer] 04/08/22 Tj Larose MD Oil Rag Washer Nephrology 04/10/24 documented as of this encounter
--- OUTSIDE RECORDS SUMMARY | 2025-03-02 13:51 | XMS_ITS | Encounter Summary ---
Author Organization [employer] Address [address] [facility] 7t [place] [address] Care Team Providers Care Product Operations Associate Name Role Phone Sammy Reilly MD Primary Care Provide r Melissa Jefferson MD Primary Care Provider [phone] Encounter Details Date Type Department Care Team ([facility] st Contact Info) Description 04/07/2024 Orders Only [facility] [address] [place] [address] Sebastián Lora MD [address] [place], [place] [phone] Social History Tobacco Use Types Packs/Day Years [...] 10:00 AM EDT Office Visit [facility] MEDICINE [address] [place] [address] Messi Mccollum MD [address] [place] [address] 03/18/2025 9:45 AM EDT Office Visit [address] [address] Marybeth Campa NP [address] [place] [address] 04/28/2025 11:30 AM EST Office Visit [facility] MEDICINE [address] [place] [address] Melissa Jefferson MD [address] [place] [address] 06/26/2025 2:00 PM EST Office Visit [facility] OPTOMETRY [address] [place] [address] Jaja Mckeon, OD [address] [place] [address] documented as of this encounter Goals Goal [...] documented as of this encounter Care Teams Product Operations Associate Relationship Specialty Start Date End Date Sammy Reilly MD [address] [place] [address] PCP - General Internal Medicine 12/23/13 12/03/24 Melissa Jefferson MD [address] [place] [address] PCP - General Family Medicine 12/04/24 [employer] 04/08/22 Tj Larose MD Manufacturer Agent Nephrology 04/10/24 documented as of this encounter
--- OUTSIDE RECORDS SUMMARY | 2025-03-02 13:51 | XMS_ITS | Encounter Summary ---
Author Organization [employer] Address [address] [facility] 7t [place] [address] Care Team Providers Care Special Delivery Worker Name Role Phone Sammy Reilly MD Primary Care Provide r Melissa Jefferson MD Primary Care Provider [phone] Reason for Visit * Reason Comments Med Refill Encounter Details Date Type Department Care Team ([facility] st Contact Info) Description 11/29/2022 Refill [facility] [address] [place] [address] Messi Mccollum MD [address] [place] [address] Tobacco use disorder Social History Tobacco Use [...] Description 03/13/2025 10:00 AM EDT Office Visit [facility] [address] [place] [address] Messi Mccollum MD [address] [place] [address] 03/18/2025 9:45 AM EDT Office Visit [address] [address] Marybeth Campa NP [address] [place] [address] 04/28/2025 11:30 AM EST Office Visit [address] [address] Melissa Jefferson MD [address] [place] [address] 06/26/2025 2:00 PM EST Office Visit [facility] OPTOMETRY [address] [place] [address] Jaja Mckeon, OD [address] [place] [address] documented as of this encounter Goals Goal [...] documented as of this encounter Care Teams Special Delivery Worker Relationship Specialty Start Date End Date Sammy Reilly MD [address] [place] [address] PCP - General Internal Medicine 12/23/13 12/03/24 Melissa Jefferson MD [address] [place] [address] PCP - General Family Medicine 12/04/24 [employer] 04/08/22 Tj Larose MD Parts Processor Nephrology 04/10/24 documented as of this encounter
--- OUTSIDE RECORDS SUMMARY | 2025-03-02 13:51 | XMS_ITS | Encounter Summary ---
Author Organization [employer] Address [address] [facility] 7t [place] [address] Care Team Providers Care Accounting Professor Name Role Phone Sammy Reilly MD Primary Care Provide r Melissa Jefferson MD Primary Care Provider [phone] Reason for Visit * Reason Comments Med Refill Encounter Details Date Type Department Care Team ([facility] st Contact Info) Description 11/10/2022 Refill [facility] MEDICINE [address] [place] [address] Hattie Gonzales MD [address] [place] [address] Social History Tobacco Use Types Packs/Day Years [...] Description 03/13/2025 10:00 AM EDT Office Visit [facility] MEDICINE [address] [place] [address] Messi Mccollum MD [address] [place] [address] 03/18/2025 9:45 AM EDT Office Visit [address] [address] Marybeth Campa NP [address] [place] [address] 04/28/2025 11:30 AM EST Office Visit [address] [address] Melissa Jefferson MD [address] [place] [address] 06/26/2025 2:00 PM EST Office Visit [facility] OPTOMETRY [address] [place] [address] Jaja Mckeon, VALERIA [address] [place] [address] documented as of this encounter Goals Goal [...] documented as of this encounter Care Teams Accounting Professor Relationship Specialty Start Date End Date Sammy Reilly MD [address] [place] [address] PCP - General Internal Medicine 12/23/13 12/03/24 Melissa Jefferson MD [address] [place] [address] PCP - General Family Medicine 12/04/24 [employer] 04/08/22 Tj Larose MD Guest Services Associate Nephrology 04/10/24 documented as of this encounter
--- OUTSIDE RECORDS SUMMARY | 2025-03-02 13:51 | XMS_ITS | Clinical Summary ---
Author Organization [facility] Address [address] [address] Phone Care Team Providers Care Education Consultant Name Role Phone Unavailable Primary Care Provider [...] Encounters Date Type Department Care Team Description 02/26/2025 TCM in Dialysis Clinic [facility] [address] [phone] Tj Larose MD 02/26/2025 Treatment [facility] [address] [phone] Tj Larose MD End stage renal disease; Dependence on renal dialysis 02/07/2025 Treatment [facility] [address] [phone] jT Larose MD End stage renal disease; Dependence on renal dialysis 01/31/2025 Treatment [facility] [address] [phone] Tj Larose MD End stage renal disease; Dependence on renal dialysis 01/24/2025 Treatment [facility] [address] [phone] Tj Larose MD End stage renal disease; Dependence on renal dialysis 01/22/2025 Orders Only [facility] [address] [phone] Tj Larose MD 01/17/2025 Treatment [facility] [address] [address] Tj Larose MD End stage renal disease; Dependence on renal dialysis 01/13/2025 Treatment [facility] [address] [phone] Tj Larose MD End stage renal disease; Dependence on renal dialysis 01/06/2025 Treatment [facility] [address] [phone] Tj Larose MD End stage renal disease; Dependence on renal dialysis 01/01/2025 Treatment [facility] [address] [phone] Tj Larose MD End stage renal disease; Dependence on renal dialysis 12/13/2024 Treatment [facility] [address] [phone] Tj Larose MD End stage renal disease; Dependence on renal dialysis 12/09/2024 Treatment [facility] [address] [phone] Tj Larose MD End stage renal disease; Dependence on renal dialysis 12/04/2024 Treatment [facility] [address] [phone] Tj Larose MD End stage renal disease; [...] 07/12/2015, Additional history exists Diabetes: Hemoglobin A1C 05/29/2025 025, 11/18/2024, 09/03/2024, Additional history exists Pneumococcal Vaccine: 50+ Years Completed 09/05/2022, 08/04/2022, 07/12/2015, Additional history exists Pneumococcal Vaccine: Peds ( 0 to 5 Years) and At-Risk Patients (6 to 49 Years) Discontinued 09/05/2022, 08/04/2022, 07/12/2015, Additional history exists Procedures Procedure Name Priority Date/Time Associated Diagnosis Comments HEPATITIS B SURFACE ANTIGEN W/REFL CONFIRM Routine 02/26/2025 3:00 AM EDT PROTEIN, TOTAL, SERUM Routine 02/26/2025 3:00 AM EDT MAGNESIUM Routine 02/26/2025 3:00 AM EDT TRANSFERRIN SATURATION Routine 3:00 AM EDT ELECTROLYTE PANEL Routine 02/26/2025 3:0 0 AM EDT LIH (HC) Routine 02/26/2025 3:00 AM EDT LIPID PANEL Routine 02/26/2025 3:00 AM EDT LACTATE DEHYDROGENASE Routine 02/26/2025 3:00 AM EDT GLUCOSE, RANDOM Routine 02/26/2025 3:00 AM EDT BUN/CREATININE RATIO Routine 02/26/2025 3:00 AM EDT CREATININE, SERUM Routine 02/26/2025 3:0 0 AM EDT BILIRUBIN, TOTAL Routine 02/26/2025 3:00 AM EDT AST Routine 02/26/2025 3:00 AM EDT ALKALINE PHOSPHATASE Routine 02/26/2025 3:00 AM EDT ALT Routine 02/26/2025 3:00 AM EDT CALCIUM PHOSPHORUS PRODUCT, ADJUSTED (HC) Routine 02/26/2025 3:00 AM EDT FERRITIN Routine 02/26/2025 3:00 AM EDT PTH, INTACT Routine 02/26/2025 3:00 AM EDT HEMOGLOBIN A1C Routine 02/26/2025 3:00 AM EDT CBC AND DIFFERENTIAL Routine 02/26/2025 3:00 AM EDT KT/V NATURAL LOG, URR (HC) Routine 02/26/2025 3:00 AM EDT HEMOGLOBIN Routine 02/12/2025 3:00 AM EDT PHOSPHATE [...] 3:00 AM EDT KT/V NATURAL LOG, URR () Routine 12/27/2024 3:00 AM EDT CBC AND [...] EDT HEMOGLOBIN Routine 12/02/2024 3:00 AM EDT from Last 3 Months Results * [facility] (02/26/2025 3:00 AM EDT) Only the most recent of8 resultswithin the time period is included. Lipemia Normal Normal [facility] Icterus Normal Normal [facility] Hemolysis Normal Normal [facility] 02/26/2025 3:00 AM EDT 02/27/2025 1:38 PM EDT us Tj Larose MD LAB HISTORICA [id number] RESULTS Final Result [facility] [address] [place] [address] * (ABNORMAL) Kt/V Natural Log, URR (02/26/2025 3:00 AM EDT) Only the most recent of4 resultswithin the time period is included. Treatment Time 184 min [facility] Pre-Weight, lb 61.3 kg [facility] Post-Weight, lb 60.2 kg [facility] BUN Post Dialysis 16 7 - 25 mg/dL [facility] BUN 77(H) 7 - 25 mg/dL [facility] UREA REDUCTION RATIO (%) 79 >=65 % [facility] Kt/V Natural Log 1.76 >=1.2 [facility] Ultrafiltration Rate 6 <=13 mL/kg/hr [facility] Comment: Recommend achieving Ultrafiltration Rate (UFR) <=10 mL/kg/hr References: Tanja MCCRACKEN et al. Kidney Int. 2010; 79(2):250-257 02/26/2025 3:00 AM EDT 02/27/2025 1:38 PM EDT Tj Larose MD LAB [id number] RESULTS Edited Result - Final [facility] [address] [place] [address] * (ABNORMAL) Calcium Phosphorus Product, Adjusted (02/26/2025 3:00 AM EDT) Only the most recent of3 resultswithin the time period is included. Albumin 4.2 3.6 - 5.4 g/dL [facility] Calcium 9.4 8.6 - 10.3 mg/dL [facility] Phosphorus, Serum 7.4(H) 2.5 - 5.0 mg/dL [facility] Ca*PO4 69.6(A) <55.0 mg2/dL2 [facility] Calcium, Adjusted Total 9.4 8.6 - 10.3 mg/dL [facility] CA*PO4 CORRCTD 69.6(A) <55.0 mg2/dL2 [facility] 02/26/2025 3:00 AM EDT 02/27/2025 1:38 PM EDT us Tj Larose MD LAB HISTORICA [id number] RESULTS Final Result Performing Organization Address City/[facility]/ZIP Co de Phone Number [facility] [address] [place] [address] * Hepatitis B Surface Ag w/Reflex Confirmation (02/26/2025 3:00 AM EDT) Only the most recent of3 resultswithin the time period is included. Hep B Surface Antigen Negative Negative [facility] 02/26/2025 3:00 AM EDT 02/27/2025 1:38 PM EDT us Tj Larose MD LAB BLOOD ORDERABLES Final Result Performing Organization Address [facility] de Phone Number [facility] [address] [place] [address] * BUN/CREATININE RATIO (02/26/2025 3:00 AM EDT) Only the most recent of3 resultswithin the time period is included. BUN/Creatinine Ratio 10.2 <=23.0 [facility] 02/26/2025 3:00 AM EDT 02/27/2025 1:38 PM EDT us Tj Larose MD LAB HISTORICA [id number] RESULTS Final Result Performing Organization Address [facility] Co de Phone Number [facility] [address] [place] [address] * (ABNORMAL) TSAT (02/26/2025 3:00 AM EDT) Only the most recent of3 resultswithin the time period is included. Iron 82 50 - 170 ug/dL [facility] Transferrin 165(L) 250 - 380 mg/dL [facility] TIBC 231 211 - 406 ug/dL [facility] Iron Saturation (TSat) 35 22 - 52 % [facility] 02/26/2025 3:00 AM EDT 02/27/2025 1:38 PM EDT us Tj Larose MD LAB BLOOD ORDERABLES Final Result Performing Organization Address City/[facility]/ZIP Co de Phone Number [facility] [address] [place] [address] * (ABNORMAL) CBC and Differential (02/26/2025 3:00 AM EDT) Only the most recent of3 resultswithin the time period is included. DIFFERENTIAL MANUAL, 2 Not Indicated [facility] White Blood Cells 9.5 4.0 - 10.0 K/uL [facility] RBC 2.59(L) 3.93 - 5.22 M/uL [facility] Hgb 8.3(L) 11.2 - 15.7 g/dL [facility] Hemoglobin x 3 24.9(L) 33.6 - 47.1 g/dL [facility] Hematocrit 26.6(L) 34.1 - 44.9 % [facility] MCV 102.7(H) 79.4 - 94.8 fL [facility] MCH 32.0 25.6 - 32.2 pg [facility] MCHC 31.2(L) 32.2 - 35.5 g/dL [facility] RDW 14.1 11.7 - 14.4 % [facility] Platelets 239 182 - 369 K/uL [facility] MPV 11.2 9.2 - 12.8 fL [facility] Neutrophils Relative 72.1(H) 34.0 - 71.1 % [facility] Lymphocytes Relative 15.3(L) 19.3 - 51.7 % [facility] Monocytes 9.3 4.7 - 12.5 % [facility] Eosinophils Relative 2.6 0.7 - 5.8 % [facility] Basophils Relative 0.4 0.1 - 1.2 % [facility] Immature Granulocytes 0.3 0.0 - 1.0 % [facility] 02/26/2025 3:00 AM EDT 02/27/2025 2:04 PM EDT Tj Larose MD LAB BLOOD ORDERABLES Final Result Performing Organization Address City/[facility]/ZIP Co de Phone Number [facility] [address] [place] [address] * ALT (02/26/2025 3:00 AM EDT) Only the most recent of3 resultswithin the time period is included. ALT (SGPT) 27 10 - 49 U/L [facility] 02/26/2025 3:00 AM EDT 02/27/2025 1:38 PM EDT Tj Larose MD LAB BLOOD ORDERABLES Final Result Performing Organization Address City/[facility] Co de Phone Number [facility] [address] [place] [address] * (ABNORMAL) AST (02/26/2025 3:00 AM EDT) Only the most recent of3 resultswithin the time period is included. AST (SGOT) 35(H) <34 U/L [facility] 02/26/2025 3:00 AM EDT 02/27/2025 1:38 PM EDT Tj Larose MD LAB BLOOD ORDERABLES Final Result Performing Organization Address [facility] de Phone Number [facility] [address] [place] [address] * Protein, total (02/26/2025 3:00 AM EDT) Only the most recent of3 resultswithin the time period is included. Total Protein 7.1 6.4 - 8.9 g/dL [facility] 02/26/2025 3:00 AM EDT 02/27/2025 1:38 PM EDT Tj Larose MD LAB BLOOD ORDERABLES Final Result Performing Organization Address [facility] Co de Phone Number [facility] [address] [place] [address] * (ABNORMAL) Alkaline phosphatase (02/26/2025 3:00 AM EDT) Only the most recent of3 resultswithin the time period is included. Alkaline Phosphatase 172(H) 46 - 116 U/L [facility] 02/26/2025 3:00 AM EDT 02/27/2025 1:38 PM EDT us Tj Larose MD LAB BLOOD ORDERABLES Final Result Performing Organization Address [facility] de Phone Number [facility] [address] [place] [address] * PTH, Intact (02/26/2025 3:00 AM EDT) PTH, Intact 290 160 - 721 pg/mL [facility] Comment: Suggested (KDIGO) ESRD maintenance range is two to nine times the upper normal limit (80.1 pg/mL) for the laboratory. 02/26/2025 3:00 AM EDT 02/27/2025 1:38 PM EDT us Tj Larose MD LAB BLOOD ORDERABLES Final Result Performing Organization Address [facility] de Phone Number [facility] [address] [place] [address] * Magnesium (02/26/2025 3:00 AM EDT) Only the most recent of3 resultswithin the time period is included. Magnesium 2.2 1.9 - 2.7 mg/dL [facility] 02/26/2025 3:00 AM EDT 02/27/2025 1:38 PM EDT us Tj Larose MD LAB BLOOD ORDERABLES Final Result Performing Organization Address [facility] de Phone Number [facility] [address] [place] [address] * (ABNORMAL) Lactate dehydrogenase (02/26/2025 3:00 AM EDT) Only the most recent of3 resultswithin the time period is included. LDH 257(H) 120 - 246 U/L [facility] 02/26/2025 3:00 AM EDT 02/27/2025 1:38 PM EDT Tj Larose MD LAB BLOOD ORDERABLES Final Result Performing Organization Address [facility] de Phone Number [facility] [address] [place] [address] * (ABNORMAL) Hemoglobin A1c (02/26/2025 3:00 AM EDT) Hemoglobin A1C 5.9(H) <5.7 % [facility] Comment: Methodology: Enzymatic Normal: <5.7% Prediabetes: 5.7-6.4% Diabetes: >6.4% Diabetic Glucose Control Evaluation: Therapeutic action suggested at >8.0% ADA recommends a glycemic goal of <7.0% 02/26/2025 3:00 AM EDT 02/27/2025 2:04 PM EDT Tj Larose MD LAB BLOOD ORDERABLES Final Result Performing Organization Address [facility] de Phone Number [facility] [address] [place] [address] * (ABNORMAL) Glucose, random (02/26/2025 3:00 AM EDT) Only the most recent of3 resultswithin the time period is included. Glucose 112(H) 70 - 99 mg/dL [facility] Comment: ADA guidelines outline the following fasting glucose ranges: Normal: <100 Prediabetes: 100-125 Diabetes: >125 02/26/2025 3:00 AM EDT 02/27/2025 1:38 PM EDT Tj Larose MD LAB BLOOD ORDERABLES Final Result Performing Organization Address [facility] de Phone Number [facility] [address] [place] [address] * (ABNORMAL) Ferritin (02/26/2025 3:00 AM EDT) Only the most recent of3 resultswithin the time period is included. Ferritin 949(H) 10 - 291 ng/mL [facility] 02/26/2025 3:00 AM EDT 02/27/2025 1:38 PM EDT us Tj Larose MD LAB BLOOD ORDERABLES Final Result Performing Organization Address City/[facility] Co de Phone Number [facility] [address] [place] [address] * (ABNORMAL) Creatinine, serum (02/26/2025 3:00 AM EDT) Only the most recent of3 resultswithin the time period is included. Creatinine 7.52(H) 0.55 - 1.02 mg/dL [facility] 02/26/2025 3:00 AM EDT 02/27/2025 1:38 PM EDT us Tj Larose MD LAB BLOOD ORDERABLES Final Result Performing Organization Address [facility] de Phone Number [facility] [address] [place] [address] * (ABNORMAL) Bilirubin, total (02/26/2025 3:00 AM EDT) Only the most recent of3 resultswithin the time period is included. Total Bilirubin <0.2(L) 0.3 - 1.2 mg/dL [facility] 02/26/2025 3:00 AM EDT 02/27/2025 1:38 PM EDT Tj Larose MD LAB BLOOD ORDERABLES Final Result Performing Organization Address [facility] de Phone Number [facility] [address] [place] [address] * (ABNORMAL) Lipid panel (02/26/2025 3:00 AM EDT) Cholesterol 158 mg/dL [facility] Comment: Optimal: <200 Borderline: 200-239 High Risk: >239 Triglycerides 90 mg/dL [facility] Comment: Optimal: <150 Borderline: 150-200 High Risk: >200 HDL 56(L) mg/dL [facility] Comment: Optimal: >59 Borderline: 40-59 High Risk: <40 LDL-Calc 84 mg/dL [facility] Comment: Optimal: <100 Borderline: 100-159 High Risk: >159 VLDL Cholesterol Carlos 18 mg/dL [facility] Comment: Optimal: <30 Borderline: 30-40 High Risk: >40 Chol/HDL Ratio 2.8 [facility] Comment: Optimal: <3.3 High Risk: >6.2 02/26/2025 3:00 AM EDT 02/27/2025 1:38 PM EDT Tj Larose MD LAB BLOOD ORDERABLES Final Result Performing Organization Address [facility] de Phone Number [facility] [address] [place] [address] * (ABNORMAL) Electrolyte panel (02/26/2025 3:00 AM EDT) Only the most recent of3 resultswithin the time period is included. Sodium 134(L) 136 - 145 mEq/L [facility] Potassium 6.0(H) 3.4 - 5.0 mEq/L [facility] Chloride 95(L) 98 - 107 mEq/L [facility] Bicarbonate (CO2) 24 21 - 31 mEq/L [facility] Anion Gap 15(H) 3 - 14 mEq/L [facility] 02/26/2025 3:00 AM EDT 02/27/2025 1:38 PM EDT Tj Larose MD LAB BLOOD ORDERABLES Final Result Performing Organization Address [facility] Co de Phone Number [facility] [address] [place] [address] * (ABNORMAL) Hemoglobin (02/12/2025 3:00 AM EDT) Only the most recent of6 resultswithin the time period is included. Hgb 8.8(L) 11.2 - 15.7 g/dL [facility] Hemoglobin x 3 26.4(L) 33.6 - 47.1 g/dL [facility] 02/12/2025 3:00 AM EDT 02/13/2025 12:55 PM EDT us Tj Larose MD LAB BLOOD ORDERABLES Final Result Performing Organization Address [facility] de Phone Number [facility] [address] [place] [address] * (ABNORMAL) Phosphorus (02/12/2025 3:00 AM EDT) Phosphorus, Serum 7.0(H) 2.5 - 5.0 mg/dL [facility] 02/12/2025 3:00 AM EDT 02/13/2025 12:29 PM EDT us Tj Larose MD LAB BLOOD ORDERABLES Final Result Performing Organization Address [facility] de Phone Number [facility] [address] [place] [address] * Collection Date (02/07/2025 3:00 AM EDT) Only the most recent of2 resultswithin the time period is included. Collection Date See Comment [facility] Comment: Patient sample received may exceed specimen stability, based on the collection date electronically provided. When reviewing patient results, verify collection information and consider specimen stability before acting on any critical or panic results. 02/07/2025 3:00 AM EDT us Tj Larose MD LAB HISTORICA [id number] RESULTS Final Result Performing Organization Address [facility] de Phone Number [facility] [address] [place] [address] * Potassium (01/15/2025 3:00 AM EDT) Only the most recent of3 resultswithin the time period is included. Potassium 4.2 3.4 - 5.0 mEq/L [facility] 01/15/2025 3:00 AM EDT 01/16/2025 1:02 PM EDT us Tj Larose MD LAB BLOOD ORDERABLES Final Result [facility] [address] [place] [address] from Last [address] [place] [address] MCR ([id number]) BRANDON ANN [id number] [place] [address] MCR ([id number])
--- OUTSIDE RECORDS SUMMARY | 2025-03-02 13:51 | XMS_ITS | Encounter Summary ---
Author Organization [employer] Address [address] [place] [address] Care Team Providers Care Video Machines Mechanic Name Role Phone Sammy Reilly MD Primary Care Provide r Melissa Jefferson MD Primary Care Provider [phone] Reason for Visit * Reason Comments Med Refill Encounter Details Date Type Department Care Team ([facility] st Contact Info) Description 04/20/2023 Refill [facility] [address] [place] [address] Name, MD Tye [address] [place], [place] [phone] Hypertension secondary to other renal disorders Social [...] 10:00 AM EDT Office Visit [facility] MED[facility] [address] [place] [address] Messi Mccollum MD [address] [place] [address] 03/18/2025 9:45 AM EDT Office Visit [facility] [address] [place] [address] Marybeth Campa NP [address] [place] [address] 04/28/2025 11:30 AM EST Office Visit [address] [address] Melissa Jefferson MD [address] [place] [address] 06/26/2025 2:00 PM EST Office Visit [facility] OPTOMETRY [address] [place] [address] Jaja Mckeon OD [address] [place] [address] documented as of this encounter Goals Goal [...] documented as of this encounter Care Teams Video Machines Mechanic Relationship Specialty Start Date End Date Sammy Reilly MD [address] [place] [address] PCP - General Internal Medicine 12/23/13 12/03/24 Melissa Jefferson MD [address] [place] [address] PCP - General Family Medicine 12/04/24 [employer] 04/08/22 Tj Larose MD [facility] Nephrology 04/10/24 documented as of this encounter
--- OUTSIDE RECORDS SUMMARY | 2025-03-02 13:52 | XMS_ITS | Encounter Summary ---
Author Organization [employer] Address [address] [facility] [address] [place] [address] Care Team Providers Care [employer] Name Role Phone Melissa Jefferson MD Primary Care Provider [phone] Reason for Visit * Reason Onset Date Comments Nurse Triage 02/27/2025 Encounter Details Date Type Department Care Team ([facility] st Contact Info) Description 02/27/2025 Telephone [facility] [address] [place] [address] Melissa Jefferson MD [address] [place] [address] Nurse Triage Social History Tobacco Use Types Packs/Day Years [...] encounter Miscellaneous Notes * Telephone Encounter - Qing Spence RN - 02/27/2025 5:10 PM EDT Lars returned to [facility] who reports that pt had a fall behind the couch but did not hit their head. [facility]NA reports pt may have felt weak due to being recently discharged from the hospital and may benefit from PT/OT therapy. Mart reports pt has been walking normal, vitals are stable and pt only had a bruise on their left upper arm. Mart reports concern pt may have forgetfulness and has been sleepwalkingwithout being aware of if. Mart denies pt showing signs of weakness, dizziness, chest pain, neck pain or any shortness of breath. Pt was seen at [facility] for dyspnea from 02/13-02/24/25 due to vna listening to patient' lungs sound which sounded like they had crackles and reported pt did not look good. Pt was seen at at [facility] on 02/13/25 and was sent out to the ED where they diagnosed pt with pneumonia andwas placed on abx. Mart denies pt showing signs of sob and HDF was scheduled for 03/18/25. Tc to [facility] who reports that they bring pt to all of their scheduled appointment and reported pt reported body pain all over their body and bruising on their face. [facility]AL [facility]DEL reported pt had a bruise on their upper le ft arm and face. PROM[facility]IONAL MODEL was not present when pt had a fall since it happened around 5 in the morning yesterday. [facility]AL [facility]DEL reports pt went to dialysis this morning and is scheduled to go on Sunday, Sunday, and Sunday. [facility] advised we'll mail over appointment reminders and wic hours. Tc to pt via BLS ID: [id number] where pt denies chest pain, shortness of breath, weakness, dizziness pain radiating anywhere on their body. Pt reports they fell on their arm only and did not hit their head. Pt reports they took Tylenol and feel better, denies any recent falls, shortness of breath or difficulty ambulating. Pt reports they feel better and is not experiencing any pain at the moment. Pt advised if they experience any chest pain, shortness of breath or severe headaches to go to the hospital to be evaluated. ED precautions reviewed and wic hours given to pt. Pt reminded of upcoming appointments and the importance to attend. Pt verbalized understanding and agrees with plan. Appointment reminders mailed to pt address on file. Protocol Used: No Protocol Available (Adult) Protocol-Based Disposition: Home Care Positive Triage Question: * Patient's symptoms are safe to treat at home per nursing judgment * All higher-acuity triage questions were negative Care Advice Discussed: * Reasons To Call Back - New symptoms develop - You become worse * Telephone Encounter - Tye Diaz - 02/27/2025 3:10 PM EDT Symptom: Fall Outcome: Schedule an appointment to be seen within 24 hours Reason: Caller denied all higher acuity questions The caller accepted this outcome. Contact mart from [facility] [phone] documented in this encounter Plan of Treatment Upcoming Encounters Date Type Department Care Team (Late st Contact Info) Description 03/13/2025 10:00 AM EDT Office Visit [facility] [address] [place] [address] Messi Mccollum MD [address] [place] [address] 03/18/2025 9:45 AM EDT Office Visit [address] [address] Marybeth Campa NP [address] [place] [address] 04/28/2025 11:30 AM EST Office Visit [address] [address] Melissa Jefferson MD [address] [place] [address] 06/26/2025 2:00 PM EST Office Visit [facility] OPTOMETRY [address] [place] [address] Mike, Megan, OD [address] [place] [address] documented as of this encounter Goals Goal [...] documented as of this encounter Care Teams [employer] Relationship Specialty Start Date End Date Melissa Jefferson MD [address] [place] [address] PCP - General Family Medicine 12/04/24 Compliance 360 04/08/22 Tj Larose MD [facility] 04/10/24 documented as of this encounter
--- OUTSIDE RECORDS SUMMARY | 2025-03-02 13:52 | XMS_ITS | Encounter Summary ---
Author Organization [employer] Address [address] [facility] 7t [place] [address] Care Team Providers Care Corporate Secretary Name Role Phone Melissa Jefferson MD Primary Care Provider [phone] Encounter Details Date Type Department Care Team (Latest Contact Info) Description 03/02/2025 Travel Social History Tobacco Use Types Packs/Day [...] Description 03/13/2025 10:00 AM EDT Office Visit [facility] [address] [place] [address] Messi Mccollum MD 230 [place] [address] 03/18/2025 9:45 AM EDT Office Visit [facility] [address] [place] [address] Marybeth Campa NP 230 [place] [address] 04/28/2025 11:30 AM EST Office Visit [facility] [address] [place] [address] Melissa Jefferson MD 230 [place] [address] 06/26/2025 2:00 PM EST Office Visit [facility] OPTOMETRY [address] [place] [address] Jaja Mckeon, OD 230 [place] [address] documented as of this encounter Goals Goal [...] as of this encounter Care Teams Corporate Secretary Relationship Specialty Start Date End Date Melissa Jefferson MD 230 [place] [address] PCP - General Family Medicine 12/04/24 [employer] 04/08/22 Tj Larose MD [facility]ucker Nephrology 04/10/24 documented as of this encounter
--- OUTSIDE RECORDS SUMMARY | 2025-03-02 13:52 | XMS_ITS | Clinical Summary ---
Author Organization [facility] Address 175 [place] [address] Phone Care Team Providers Care Log Loader Helper Name Role Phone Sammy Vicente MD Primary Care Provi baldo Allergies No known active allergies Encounters Date Type Department Care Team Description 12/03/2024 2:00 PM EDT Office Visit Orthopedic Surgery [facility] [address] [address] Candido Hu, DPM Corns and callosities (Primary Dx); Dermatophytosis of nail; Pain in toe of right foot; Pain in toe of left foot; Metatarsalgia of both feet; Primary osteoarthritis of both feet; Acquired hammer toe of right foot; Hammer toe of left foot; Type II diabetes mellitus with peripheral circulatory disorder ([facility] V24, [facility] V28); Tinea pedis of both feet; Diabetic mononeuropathy simplex ([facility] V24, [facility] V28) from Last 3 Months Social History [...] Upcoming Encounters Date Type Department Care Team ([facility] Contact Info) Description 03/09/2025 2:00 PM EDT Office Visit Orthopedic Surgery - [place] 250 175 [facility] 250 [place] [address] Candido Hu, DPM 175 [facility] 250 [place] [address] Health Maintenance Due Date Last Done Comments Breast Cancer Screening 1955 Colorectal Cancer Screening: Colonoscopy 1955 Diabetes: Annual Foot Exam 1966 Diabetes: Annual Retina Eye Exam 1966 Hepatitis A Vaccines (1 of 2 - Risk 2-dose series) 1975 Zoster Vaccines (1 of 2) 1975 RSV Immunization Adult Patients (1 - Risk 50-74 years 1-dose series) 2006 Falls Risk Assessment 04/19/2022 Hepatitis C Screening [...] patient's age to complete this topic [place] [address] [place] [address] MEDICARE Member Subscriber Plan / Payer (Ef fective 2021-Present) Name:Renzo Relation to Subscriber:Self Name:Cruz Muller Payer ID:[id number] Group ID:[id number] Type:Not on file Address: [place] [address] [address] [place] [address] Care Teams Log Loader Helper Relationship Specialty Start Date End Date Sammy Vicente MD [address] [place] [address] [phone] PCP - General Internal Medicine 08/01/24
--- OUTSIDE RECORDS SUMMARY | 2025-03-02 13:52 | XMS_ITS | Encounter Summary ---
Author Organization [facility] Address [address] [place] [phone] Phone Care Team Providers Care Guard Rail Installer Name Role Phone Unavailable Primary Care Provider Unavailabl e Encounter Details Date Type Department Care Team ([facility] st Contact Info) Description 02/26/2025 TCM in Dialysis Clinic [facility] [address] [address] Yohannes Larose MD [address] [address] Social History Tobacco Use Types [...] of this encounter Progress Notes * Yohannes Laorse MD - 02/26/2025 12:00 AM EDT Patient: Cruz Muller : 1955 Note Type: Dialysis TCM Service Date: 02/26/2025 The patient was seen for a [id number] visit as part of Transitional Care Management services. Attending Automation Technologist: YOHANNES LAROSE MD Dialysis Location: [facility] Schedule: Shift: 2 INTERACTIVE CONTACT Contact with the patient or caregiver was made or attempted within 2 business days of discharge - details in the medical record. HOSPITALIZATION SUMMARY Patient transitioned from: Hospital Patient transitioned to: Home Admit Date: 02/13/2025 Discharge Date: 02/24/2025 Discharged info reviewed: Followed-up on or reviewed need for pending tests/treatments as noted HOME MEDICATIONS Discharge med list reviewed and reconciled - no changes. PHYSICAL EXAM Exam performed. Vital Signs Reviewed. CV - Blood pressure noted. No edema. EXT - No ulcers. CARE COORDINATION Post-discharge follow-up appointments reviewed with the patient. VISIT DIAGNOSES CPT Code 27293 - High complexity, seen within 7 days of discharge. N18.6 End stage renal disease Signed by: YOHANNES LAROSE MD on 02/26/2025 at 12:35:44 PM Transcribed by: YOHANNES LAROSE MD on 02/26/2025 at 12:35:44 PM documented in this encounter Plan of Treatment Not on file documented as of this encounter Visit Diagnoses Not on filedocumented in this encounter
--- OUTSIDE RECORDS SUMMARY | 2025-03-02 13:52 | XMS_ITS | Encounter Summary ---
Author Organization [employer] Address 75 [facility] 7t [place] [address] Care Team Providers Care Extrusion Utility Worker Name Role Phone Melissa Jefferson MD Primary Care Provider [phone] Reason for Visit * Reason Onset Date Comments Nurse Triage 02/27/2025 Encounter Details Date Type Department Care Team ([facility] st Contact Info) Description 02/27/2025 Telephone [facility] MEDICINE [address] [place] [address] Melissa Jefferson MD 230 [place] [address] Nurse Triage Social History Tobacco Use Types [...] shortness of breath. Pt was seen at [facility] for dyspnea from 02/13-02/24/25 due to vna listening to patient' lungs sound which sounded like they had crackles and reported pt did not look good. Pt was seen at at [facility] on 02/13/25 and was sent out to the ED where they diagnosed pt with pneumonia andwas placed on abx. Mart denies pt showing signs of sob and HDF was scheduled for 03/18/25. Tc to MANAGER FILE who reports that they bring pt to all of their scheduled appointment and reported pt reported body pain all over their body and bruising on their face. MANAGER FILE reported pt had a bruise on their upper le ft arm and face. MANAGER FILE was not present when pt had a fall since it happened around 5 in the morning yesterday. MANAGER FILE reports pt went to dialysis this morning and is scheduled to go on Sunday, Sunday, and Sunday. MANAGER FILE advised we'll mail over appointment reminders and wic hours. Tc to pt via BLS ID: [id number] where pt denies chest pain, shortness of [...] Telephone Encounter - Tye Diaz - 02/27/2025 3:14 PM EDT Patient calling to report ED visit on : Date: 1955 Hospital: [facility] Seen for: Hypoxia and dyspnea Symptomatic Yes *if yes message should go to Triage Patient advised will forward to team nurse for follow up Contact mart with international VNA at [phone] documented in this encounter Plan of Treatment Upcoming Encounters Date Type Department Care Team (Late st Contact Info) Description 03/13/2025 10:00 AM EDT Office Visit [facility] [address] [place] [address] Messi Mccollum MD [address] [place] [address] 03/18/2025 9:45 AM EDT Office Visit [address] [address] Marybeth Campa, JOHN 230 [place] [address] 04/28/2025 11:30 AM EST Office Visit [facility] 230 [place] [address] Melissa Jefferson MD [address] [place] [address] 06/26/2025 2:00 PM EST Office Visit [facility] OPTOMETRY [address] [place] [address] Mike, Jaja, OD 230 [place] [address] documented as of this encounter Goals Goal Patient Goal Type Associated Problems Recent Progress Patient-Stated? Author Check and record your blood sugars as directed Blood Pressure No Jimbo Burris PharmD Short-term: Promote adherence to treatment regimen General No Jmibo Burris, PharmD Take your medication every day Lifestyle No Jimbo Burris PharmD documented as of this encounter Visit Diagnoses Not on filedocumented in this encounter Additional Health Concerns Assessment Noted Time PHQ-9 Depression Total Score: 13 09/03/ 025 3:05 PM EDT documented as of this encounter Care Teams Extrusion Utility Worker Relationship Specialty Start Date End Date Melissa Jefferson MD [address] [place] [address] PCP - General Family Medicine 12/04/24 [employer] 04/08/22 Tj Larose MD [employer] Nephrology 04/10/24 documented as of this encounter
--- OUTSIDE RECORDS SUMMARY | 2025-03-02 13:52 | XMS_ITS | Encounter Summary ---
Author Organization [employer] Address [address] [facility] [address] 7t [place] [address] Care Team Providers Care Manager Commercial Name Role Phone Sammy Reilly MD Primary Care Provide r Melissa Jefferson MD Primary Care Provider [phone] Encounter Details Date Type Department Care Team (Late st Contact Info) Description 06/26/2024 Telephone [facility] MED[facility]INE 230 [place] [address] Sammy Reilly MD 230 [place] [address] Social History Tobacco Use Types Packs/Day Years [...] Description 03/13/2025 10:00 AM EDT Office Visit [facility] [address] [place] [address] Messi Mccollum MD [address] [place] [address] 03/18/2025 9:45 AM EDT Office Visit [facility] [address] [place] [address] Marybeth Campa NP [address] [place] [address] 04/28/2025 11:30 AM EST Office Visit [facility] [address] [place] [address] Melissa Jefferson MD [address] [place] [address] 06/26/2025 2:00 PM EST Office Visit [facility] OPTOMETRY [address] [place] [address] Jaja Mckeon, OD 230 [place] [address] documented as of this encounter Goals Goal [...] as of this encounter Care Teams Manager Commercial Relationship Specialty Start Date End Date Sammy Reilly MD 230 [place] [address] PCP - General Internal Medicine 12/23/13 12/03/24 Melissa Jefferson MD 230 [place] [address] PCP - General Family Medicine 12/04/24 [employer] 04/08/22 Tj Larose MD Hvac Project Manager Nephrology 04/10/24 documented as of this encounter
--- OUTSIDE RECORDS SUMMARY | 2025-03-02 13:52 | XMS_ITS | Encounter Summary ---
Author Organization [employer] Address [address] [facility] [address] 7t [place] [address] Care Team Providers Care Salesforce Consultant Name Role Phone Melissa Jefferson MD Primary Care Provider [phone] Reason for Visit * Reason Comments Transition Of Care (Tcm) HDF unscheduled . Encounter Details Date Type Department Care Team (Late st Contact Info) Description 02/25/2025 Patient Outreach [facility] [address] [place] [address] Melissa Jefferson MD 230 [place] [address] Transition Of Care (Tcm) (HDF unscheduled. ) Social History Tobacco Use Types Packs/Day Years [...] as of this encounter Miscellaneous Notes * Significant Event - Elsa Bahena - 02/25/2025 10:05 AM EDT 02/25/25 0957 Hospital Discharges and Admission for [facility] Type of Visit Hospital Admission Date of Admission/Visit 02/13/25 Date of Discharge 02/24/25 [facility] Diagnosis ESRD (end stage renal disease) Disposition Discharged Home Follow-Up Actions Follow-Up Needed Provider appointment Follow-Up Outcome Left Voicemail Initial Contact Date 02/25/25 JOYA singer call to offer patient with an HDF appointment with provider. No answer at this time. Patient's name and were not confirmed. CC left detailed message educating patient on importance of following up with provider following an inpatient admission. Provided contact information requesting a call back in order to schedule the HDF appointment. Patient educated via voicemail on extended clinic hours on Mondays and Wednesdays, and Walk-In Urgent Care Located in [facility]. Patient provided with after-hours line for [facility], , which offer night time triage service and option to transfer to senior quality control inspector provider if needed. CC scanned discharge summary into patient's chart. documented in this encounter Plan of Treatment Upcoming Encounters Date Type Department Care Team (Late st Contact Info) Description 03/13/2025 10:00 AM EDT Office Visit [facility] MEDICINE 230 [place] [address] Messi Mccollum MD 230 [place] [address] 03/18/2025 9:45 AM EDT Office Visit [facility] MEDICINE 230 [place] [address] Marybeth Campa NP 230 [place] [address] 04/28/2025 11:30 AM EST Office Visit [facility] MEDICINE [address] [place] [address] Melissa Jefferson MD 230 [place] [address] 06/26/2025 2:00 PM EST Office Visit [facility] OPTOMETRY [address] [place] [address] Jaja Mckeon, VALERIA 230 [place] [address] documented as of this encounter Goals Goal Patient Goal Type Associated Problems Recent Progress Patient-Stated? Author Check and record your blood sugars as directed Blood Pressure No Jimbo Burris PharmD Short-term: Promote adherence to treatment regimen General No Jimbo Burris PharmD Take your medication every day Lifestyle Jimbo Barlow PharmD documented as of this encounter Visit Diagnoses Not on filedocumented in this encounter Additional Health Concerns Assessment Noted Time PHQ-9 Depression Total Score: 13 04/ 025 3:05 PM EDT documented as of this encounter Care Teams Salesforce Consultant Relationship Specialty Start Date End Date Melissa Jefferson MD 230 [place] [address] PCP - General Family Medicine 12/04/24 [employer] 04/08/22 Tj Larose MD Center Manager Nephrology 04/10/24 documented as of this encounter
--- OUTSIDE RECORDS SUMMARY | 2025-03-02 13:52 | XMS_ITS | Encounter Summary ---
Author Organization [employer] Address [address] [facility] [address] 7t [place] [address] Care Team Providers Care Construction Controller Name Role Phone Sammy Reilly MD Primary Care Provide r Melissa Jefferson MD Primary Care Provider [phone] Reason for Visit * Reason Onset Date Comments Appointment Request 07/08/2024 Encounter Details Date Type Department Care Team ([facility] Contact Info) Description 07/08/[address] [facility] 230 [place], [place] [phone] Sammy Reilly MD 230 [place], [place] [phone] Appointment Request Social History Tobacco Use Types [...] 07/08/2024 3:58 PM EST Tc from pt TERRITORY SALES EXECUTIVE stating that pt is requesting apt with PCP due to not being seen in a while and she wants to get checked up. Pt wants to give info to PCP or nurse. Contact pt TERRITORY SALES EXECUTIVE at [phone] documented in this encounter Plan of Treatment Upcoming Encounters Date Type Department Care Team (Late st Contact Info) Description 03/13/2025 10:00 AM EDT Office Visit [facility] [address] [place] [address] [phone] Messi Mccollum MD [address] [place] [address] 03/18/2025 9:45 AM EDT Office Visit [facility] [address] [place] [address] [phone] Marybeth Campa, PROPERTY PRESERVATION SPECIALIST 230 [place] [address] 04/28/2025 11:30 AM EST Office Visit [facility] 230 [place] [address] Melissa Jefferson MD 230 [place], [place] [phone] 06/26/2025 2:00 PM EST Office Visit [facility] OPTOMETRY [address] [place] [address] Mike, Jaja, OD 230 [place] [address] documented as of this encounter Goals Goal [...] documented as of this encounter Care Teams Construction Controller Relationship Specialty Start Date End Date Sammy Reilly MD [address] [place] [address] [phone] PCP - General Internal Medicine 12/23/13 12/03/24 Melissa Jefferson MD [address] [place] [address] [phone] PCP - General Family Medicine 12/04/24 [employer] 04/08/22 Tj Larose MD Acquisition Analyst Nephrology 04/10/24 documented as of this encounter
--- OUTSIDE RECORDS SUMMARY | 2025-03-02 13:52 | XMS_ITS | Encounter Summary ---
Author Organization [facility] Address [address] [address] Phone Care Team Providers Care Lead Solutions Architect Name Role Phone Unavailable Primary Care Provider Unavailabl e Encounter Details Date Type Department Care Team ([facility] st Contact Info) Description 02/26/2025 Treatment [facility] [address] [address] Yohannes Larose MD [address] [address] End stage renal disease; Dependence [...] Dialysis Note - Yohannes Larose MD - 02/26/2025 12:00 AM EDT Patient: Cruz Muller : 1955 Note Type: Dialysis Rounds-Comp Service Date: 02/26/2025 This patient was personally seen [id number] for a complete visit as part of routine monthly dialysis care for end stage renal disease. Attending Motors And Controls Tester: YOHANNES LAROSE MD Dialysis Location: [facility] Schedule: Shift: 2 OVERVIEW Patient is stable. HOME MEDICATIONS Current [facility] Outpatient Medications acetaminophen (TYLENOL) tablet Take 1 tablet by mouth 2 (two) times a day Start Date: 08/15/2016 amLODIPine (NORVASC) tablet Take 1 tablet by mouth 1 (one) time each day Start Date: aspirin EC tablet Take 1 tablet by mouth 1 (one) time each day Start Date: Banophen 25 MG capsule TAKE 1 CAPSULE BY MOUTH EVERY DAY NEEDED Start Date: 03/09/2023 bumetanide (BUMEX) 2 MG tablet TAKE 1 TABLET BY MOUTH EVERY DAY Start Date: 08/30/2022 buprenorphine-naloxone (SUBOXONE) SL film 8-[address] 0.5 Film under the tongue 3 (three) times a day Start Date: cloNIDine (CATAPRES) 0.2 MG tablet Take 1 tablet (0.2 mg total) by mouth in the morning and 1 tablet (0.2 mg total) in the evening. Start Date: 06/30/2021 dilTIAZem CD (Cardizem CD) 360 MG 24 hr capsule Take 1 capsule (360 mg total) by mouth 1 (one) time each day Start Date: 06/30/2021 diphenhydrAMINE (SOMINEX) tablet 25 mg Take 2 tablets by mouth 1 (one) time each day Start Date: docusate sodium (COLACE) capsule Take by mouth 1 (one) time each day Start Date: famotidine (PEPCID) tablet Take 1 tablet by mouth 2 (two) times a day Start Date: FLOVENT HFA 110 MCG/ACT IN AERO Start Date: hydrALAZINE 50 MG tablet Take 1 tablet (50 mg total) by mouth in the morning and 1 tablet (50 mg total) in the evening and 1 tablet (50 mg total) before bedtime. Start Date: 06/30/2021 losartan (COZAAR) tablet Take 1 tablet by mouth 1 (one) time each day Start Date: metFORMIN (GLUCOPHAGE) tablet Take 1 tablet by mouth 2 (two) times a day Start Date: ondansetron (ZOFRAN) tablet Take 1 tablet by mouth 4 (four) times a day Start Date: OXcarbazepine (TRILEPTAL) tablet Take 3 tablets by mouth Start Date: pantoprazole (PROTONIX) EC tablet Take 1 tablet by mouth 1 (one) time each day Start Date: PROAIR HFA IN Start Date: risperiDONE (RisperDAL) tablet Take 1 tablet by mouth every night Start Date: senna (SENOKOT) 8.6 MG tablet TAKE 1 TABLET BY MOUTH EVERY DAY NEEDED Start Date: 02/05/2023 sevelamer carbonate (RENVELA) 800 MG tablet TAKE 1 TABLET BY MOUTH TWICE DAILY WITH ONLY 2 MEALS Start Date: 01/30/2022 SPIRIVA HANDIHALER 18 MCG IN CAPS 1 capsule by Other route 1 (one) time each day Start Date: Current [facility] Allergies Allergen: Not on File BP AND FLUID ASSESSMENT Acceptable blood pressure. Fluid status acceptable. ADEQUACY ASSESSMENT Kt/V, Natural Log 1.61 (01/22/25) 1.65 (12/27/24) See Comment (12/25/24) UREA REDUCTION RATIO (%) 71 (01/22/25) 76 (12/27/24) ?95 (12/25/24) BUN 49 (01/22/25) 54 (12/27/24) 39 (12/25/24) BUN Post Dialysis 14 (01/22/25) 13 (12/27/24) ?2 (12/25/24) Creatinine 7.25 (01/22/25) 6.30 (12/25/24) 8.13 (11/18/24) Bicarbonate (CO2) 26 (01/22/25) 23 (12/25/24) 25 (11/22/24) Sodium 133 (01/22/25) 135 (12/25/24) 130 (11/18/24) Target met. Prescription compliance acceptable. ACCESS ASSESSMENT Vascular access examined. ANEMIA ASSESSMENT Hgb 8.8 (02/12/25) 9.0 (02/07/25) 9.0 (02/05/25) Iron Saturation (TSat) 30 (01/22/25) 44 (12/25/24) 47 (11/18/24) Ferritin 1,571 (01/22/25) 1,316 (12/25/24) 1,432 (11/18/24) Iron 67 (01/22/25) 101 (12/25/24) 102 (11/18/24) TIBC 220 (01/22/25) 228 (12/25/24) 218 (11/18/24) MCV 100.7 (01/22/25) 100.0 (12/25/24) 99.7 (11/18/24) Platelets 263 (01/22/25) 228 (12/25/24) 211 (11/18/24) Anemia targets met. Hemoglobin not at target. BMM ASSESSMENT Calcium, Adjusted Total 9.1 01/22/25 8.2 12/25/24 8.8 11/18/24 Calcium 9.1 01/22/25 8.0 12/25/24 8.8 11/18/24 Phosphorus, Serum 7.0 02/12/25 5.6 01/22/25 5.5 12/25/24 Ca*PO4 51.0 01/22/25 44.0 12/25/24 52.8 11/18/24 PTH, Intact 270 11/18/24 154 08/21/24 190 07/24/24 Magnesium 2.4 01/22/25 2.6 12/25/24 2.6 11/18/24 Alkaline Phosphatase 158 01/22/25 156 12/25/24 154 11/18/24 PTH within target. Hyperphosphatemia noted. Calcium controlled. Bone and mineral metabolism parameters reviewed. NUTRITION ASSESSMENT Albumin 4.2 01/22/25 3.8 12/25/24 4.4 11/18/24 Potassium 4.6 01/22/25 4.2 01/15/25 3.6 01/08/25 Hemoglobin A1C 5.9 11/18/24 5.5 08/21/24 Albumin at goal. PHYSICAL EXAM Exam performed. Vital Signs Reviewed. CV - Blood pressure noted. No edema. EXT - No ulcers. ADDITIONAL LABS White Blood Cells 6.5 (01/22/25) 7.6 (12/25/24) 8.8 (11/18/24) Cholesterol 135 (11/18/24) 144 (08/21/24) HDL 52 (11/18/24) 50 (08/21/24) LDL-Calc 65 (11/18/24) 75 (08/21/24) Triglycerides 88 (11/18/24) 94 (08/21/24) ADDITIONAL COMMENT COMMENTS: 02/28/24 stable 04/08/24 doing ok 07/01/24 stable Signed by: YOHANNES LAROSE MD on 02/26/2025 at 12:35:01 PM Transcribed by: YOHANNES LAROSE MD on 02/26/2025 at 12:35:01 PM documented in this encounter Plan of Treatment Not on file documented as of this encounter Visit Diagnoses Diagnosis End stage renal disease Dependence on renal dialysis documented in this encounter
== END 2025-03-02 13:46 | disposition home or self-care (01) ==
LOC: HO.HHCX 13:45
PROVIDERS: Visit Provider Nurse Practitioner
DX: M25.472 Effusion, left ankle (principal)
CPT/HCPCS: 73610

== ENCOUNTER → 2025-03-02 13:46 | Outpatient (BNV) | payer OTHER, SELFPAY | PROVIDERS: Visit Provider Radiology Diagnostic Radiology | DX: M19.072 Primary osteoarthritis, left ankle and foot (principal); W19.XXXA Unspecified fall, initial encounter | CPT/HCPCS: 73610 ==

== ENCOUNTER 2025-03-11 14:02 | Outpatient (AMB) | payer OTHER, SELFPAY ==
--- OUTSIDE RECORDS SUMMARY | 2025-03-09 14:00 | XMS_ITS | Encounter Summary ---
Author Organization [facility] Address [address] [place] [id number] Care Team Providers Care Day Light Relief Operator Name Role Phone Sammy Vicente MD Primary Care Provi baldo Reason for Visit * Reason Comments DM Foot Care Nail Problem onychomycosis Encounter Details Date Type Department Care Team ([facility] st Contact Info) Description 03/09/2025 2:00 PM EDT Office Visit Orthopedic Surgery - [place] [address] [phone] Candido Hu DPM [address] [phone] Primary osteoarthritis of both feet (Primary Dx); Dermatophytosis of nail; Acquired hammer toe of right foot; Hammer toe of left foot; Pain in toe of right foot; Pain in toe of left foot; Metatarsalgia of both feet; Tinea pedis of both feet; Type II diabetes mellitus with peripheral circulatory disorder ([facility] V24, [facility] V28); Diabetic mononeuropathy simplex ([facility] V24, [facility] V28); Corns and callosities Social History Tobacco Use Types Packs/Day Years Used Date Smoking Tobacco: Never Assessed Comments Unknown Sex and Gender Information Value Date Recorded Sex Assigned at Not on file Legal Sex Female 2:31 PM EST Gender Identity Not on file Sexual Orientation Not on file documented as of this encounter Progress Notes * Candido Hu DPM - 03/09/2025 2:00 PM EDT Robinson Muller is a 69 y.o. year old female presents complaining of sharp shooting pain in both feet notes her nails long and painful thick she has difficulty walking or cutting them herself she notes that shehas lots of numbness burning tingling in both feet she has radiating pain she notes her toes curleddown she also notes that she has a thick callus in the instep of both great toes patient states she would like to try different medication notes that her nails and skin is only getting worse she is wonder if she tried some type of softener to help with the thickness of her skin and nails is walkingwith 4 point rolling walker is now suffering from back problems as well senior quality technician offered patient declined Last PCP visit 5BHeidy Merida MD ROS: GENERAL: Pt denies nausea, fever, vomiting, chills, or shortness of breath. Pt in NAD. CARDIOLOGY: pt denies chest pain, palpitations LUNGS: pt denies shortness of breath MUSCULOSKELETAL: See HPI, otherwise no joint pain or swelling, back pain, or muscle pain. SKIN: see HPI, otherwise no lesions, rash or itching NEURO: No persistent headache, weakness or numbness The remainder of the review of systems is noncontributory PAST MEDICAL HISTORY: Type 2 diabetes End-stage renal disease Anemia Anxiety Chronic low back pain Chronic obstructive lung disease (CMS/HCC) Combined drug dependence excluding opioids (CMS/HCC) End-stage renal disease on hemodialysis (CMS/HCC) Diabetes [...] Uncontrolled hypertension Vaginal itching Right foot pain Hx of non-ST elevation myocardial infarction (NSTEMI) Moderate major depression (CMS/HCC) SOCIAL HISTORY: Social History Tobacco Use Smoking status: Not on file Smokeless tobacco: Not on file Substance Use Topics Alcohol use: Not on file ACTIVE MEDICATIONS: Outpatient Medications Marked as Taking for the 03/09/25 encounter (Office Visit) with Candido Hu DPM Medication Sig Dispense Refill albuterol 2.5 mg /3 mL (0.083 %) nebulizer solution INHALE 1 AMPULE USING A NEBULIZER EVERY 6 HOURSAS NEEDED FOR WHEEZING amLODIPine (NORVASC) 10 mg tablet Take 1 tablet (10 mg total) by mouth 1 (one) time each day. aspirin 81 mg EC tablet Take 1 tablet (81 mg total) by mouth 1 (one) time each day. blood sugar diagnostic (FreeStyle Lite Strips) test strip USE DIRECTED TO TEST BLOOD SUGAR THREETIMES DAILY buprenorphine-naloxone (SUBOXONE) 8-2 mg per SL film DISSOLVE 2 FILMS UNDER THE TONGUE ONCE DAILY buPROPion SR (Wellbutrin SR) 150 mg 12 hr tablet po bid carvediloL (COREG) 25 mg tablet Take 1 tablet (25 mg total) by mouth 2 (two) times a day. cloNIDine ([id number]-TGI-1) 0.3 mg/24 hr APLICAR 1 PARCHO A LA PIEL MARIFER VEZ CADA SEMANA. REMOVER EL PARCHE JAIR ANTES DE APLICAR UN PARCHE NUEVO. clotrimazole (LOTRIMIN) 1 % vaginal cream INSTILL VAGINALLY EVERY EVENING FOR 7 DAYS diclofenac (VOLTAREN) 1 % topical gel APPLY 2 GRAMS TO AFFECTED AREA(S) TWICE DAILY DIRECTED diphenhydrAMINE (Banophen) 25 mg capsule Take 1 capsule (25 mg total) by mouth 1 (one) time each day if needed. docusate sodium (COLACE) 100 mg capsule Take 1 capsule every day by oral route for 7 days. famotidine (PEPCID) 20 mg tablet Take 1 tablet (20 mg total) by mouth 2 (two) times a day. fluticasone HFA (FLOVENT HFA) 110 mcg/actuation inhaler Inhale 1 puff by mouth 2 (two) times a day. FreeStyle [place] Lite monitoring kit use as directed to test blood sugar gabapentin (NEURONTIN) 300 mg capsule Take 1 capsule (300 mg total) by mouth daily. glucose 3.75 gram tablet,chewable CHEW 4 TABLETS BY MOUTH NEEDED HYPOGLYCEMIA hydrALAZINE (APRESOLINE) 100 mg tablet Take 1 tablet (100 mg total) by mouth 3 (three) times a day with meals. insulin aspart (NovoLOG Flexpen U-100 Insulin) 100 unit/mL (3 mL) injection pen INJECT 4-12 UNITS SUBCUTANEOUSLY BEFORE MEALS DIRECTED PER SLIDING SCALE BLOOD SUGAR 150-200 = 4 UNITS, 201-250 = 6U, 251-300 = 8U, 301-350 = 10U, > 351 = 12U insulin glargine (Lantus Solostar U-100 Insulin) 100 unit/mL (3 mL) injection pen INJECT 7 UNITS SUBCUTANEOUSLY ONCE DAILY lactulose (CHRONULAC) solution GIVE 15 ML BY MOUTH EVERY DAY NEEDED FOR CONSTIPATION Lokelma 10 gram packet DISSOLVE 1 PACKET IN WATER DIRECTED AND TAKE ONCE DAILY ON SUNDAY, SUNDAY AND SUNDAY magnesium citrate solution DRINK FULL BOTTLE ONCE metFORMIN (GLUCOPHAGE) 1,000 mg tablet Take 1 tablet (1,000 mg total) by mouth 2 (two) times a day. mirtazapine (REMERON) 15 mg tablet Take 1 tablet (15 mg total) by mouth. nicotine (NICODERM CQ) 14 mg/24 hr APPLY 1 PATCH TOPICALLY TO THE SKIN IN THE MORNING DO NOT SMOKE WHILE USING PATCH OLANZapine (ZyPREXA) 5 mg tablet Take 1 tablet (5 mg total) by mouth. ondansetron (ZOFRAN) 4 mg tablet TAKE 1 TABLET BY MOUTH EVERY TWELVE HOURS NEEDED FOR NAUSEA ANDVOMITING pantoprazole (PROTONIX) 40 mg EC tablet TAKE 1 TABLET BY MOUTH EVERY MORNING. DO NOT BREAK, CRUSH, DISSOLVE OR CHEW psyllium husk, with sugar, (Reguloid, psyllium husk-sucro,) 3 gram/12 gram powder MIX 1 TABLESPOONFUL IN 8 OUNCES OF WATER AND DRINK EVERY DAY QUEtiapine (SeroqueL) 100 mg tablet at bed time senna 8.6 mg tablet TAKE 2 TABLETS BY MOUTH EVERY DAY FOR 7 DAYS sevelamer carbonate (RENVELA) 800 mg tablet TAKE 1 TABLET BY MOUTH TWICE DAILY WITH ONLY 2 MEALS tiotropium (Spiriva with HandiHaler) 18 mcg per inhalation capsule USE 1 CAPSULE FOR INHALATION ONCE A DAY DO NOT SWALLOW CAPSULE traZODone (DESYREL) 100 mg tablet Take 1 tablet (100 mg total) by mouth at bedtime as needed. TRUEplus Lancets 33 gauge misc USE DIRECTED TO TEST BLOOD SUGAR FIVE TIMES DAILY ALLERGIES: No Known Allergies PHYSICAL EXAM: There were no vitals taken for this visit. PODIATRIC EXAMINATION: GENERAL: Patient appears well nourished, with NAD. VASCULAR: Dorsalis pedis pulses are 0/4 bilaterally and Posterior tibial pulses are 0/4 bilaterally. Capillary filling time within normal limits the digits. No pallor on elevation or rubor on dependency. No varicosities. Denies rest pain or claudication pain. NEUROLOGICAL: Sharp/dull sensation altered, protective sensation diminished 7/10 with Ipswitch touch test bilaterally, vibratory sensation intact to the tibial tuberosity. ORTHOPEDIC: Good muscle strength 5/5 of all flexors and extensors. Dorsi flexion of ankle ,10 degrees, plantar flexion WNL. No muscle atrophy. DERMATOLOGICAL:.Toenails: Left Toenail(s) 1-5: subungual debris, discoloration, hypertrophic, elongation, mycotic appearance, onychomycosis, pain and thickening. Right Toenail(s) 1-5: subungual debris, discoloration, hypertrophic, elongation, mycotic appearance, onychomycosis, pain and thickening. Annular scaling bilateral feet moccasin distribution Skin thinning texture shiny appearance diffuse hyperpigmentation bilaterally pedal hair decreased Hyperkeratotic tissue subfirst metatarsal bilateral BIOMECHANICS: Ankle ROM WNL, STJ ROM wnl, MTJ ROM wn crepitation bilateral l, 1st MPJ ROM tracking plane deformity severe hammertoe contractures 2 through 5 bilateral. IMAGING: IMPRESSION: 1. Primary osteoarthritis of both feet 2. Dermatophytosis of nail 3. Acquired hammer toe of right foot 4. Hammer toe of left foot 5. Pain in toe of right foot 6. Pain in toe of left foot 7. Metatarsalgia of both feet 8. Tinea pedis of both feet 9. Type II diabetes mellitus with peripheral circulatory disorder ([facility] V24, [facility] V28) 10. Diabetic mononeuropathy simplex ([facility] V24, [facility] V28) 11. Corns and callosities PLAN: Pt was seen and examined, history reviewed. Worse arthritis both feet discussed and reviewed Patient is not end-stage renal disease and NSAIDs are not a great option for To discussed reviewed poss benefits of lidocaine patches for neuritis and neuropathy and arthritis of both feet she states she like to consider it Yhtb-wka-zyeslzu options were discussed as well as prescription modalities Discussed with patient regarding proper glucose control, exercise, and diet. Explained to patient proper shoe gear, and importance of daily foot checks. I reviewed neuropathy and why it occurs in diabetics. I educated the patient on proper blood sugar control and the importance of an HgBA1c of less than 7.0%. I reviewed the signs and symptoms of neuropathy with the patient Pt to return for another evaluation in 3 months. Debridement of mycotic toenails 6-10: Verbal informed consent was obtained from the patient. Greater than 6 nails were aseptically debrided in thickness and length with nail nippers Hyperkeratotic tissue debrided pared with a number #15 scalpel blade x2 Candido Hu DPM documented in this encounter Plan of Treatment Upcoming Encounters Date Type Department Care Team (Late st Contact Info) Description 06/08/2025 1:15 PM EST Office Visit Orthopedic Surgery - [place] [phone] [phone] Candido Hu DPM [address] [phone] documented as of this encounter Visit Diagnoses Diagnosis Primary osteoarthritis of both feet- Primary Dermatophytosis of nail Acquired hammer toe of right foot Hammer toe of left foot Pain in toe of right foot Pain in soft tissues of limb Pain in toe of left foot Pain in soft tissues of limb Metatarsalgia of both feet Tinea pedis of both feet Type II diabetes mellitus with peripheral circulatory disorder ([facility] V24, [facility] V28) Type II or unspecified type diabetes mellitus with peripheral circulatory disorders, not stated as uncontrolled Diabetic mononeuropathy simplex ([facility] V24, [facility] V28) Type II or unspecified type diabetes mellitus with neurological manifestations, not stated as uncontrolled Corns and callosities documented in this encounter Historical Medications * This list may reflect changes made after this encounter. tiotropium (Spiriva with HandiHaler) 18 mcg per inhalation capsule USE 1 CAPSULE FOR INHALATION ONCE A DAY DO NOT SWALLOW CAPSULE traZODone (DESYREL) 100 mg tablet Take 1 tablet (100 mg total) by mouth at bedtime as needed. 12/26/2010 Lokelma 10 gram packet DISSOLVE 1 PACKET IN WATER DIRECTED AND TAKE ONCE DAILY ON SUNDAY, SUNDAY AND Sunday08/22/2024 sevelamer carbonate (RENVELA) 800 mg tablet TAKE 1 TABLET BY MOUTH TWICE DAILY WITH ONLY 2 MEALS 01/30/2022 senna 8.6 mg tablet TAKE 2 TABLETS BY MOUTH EVERY DAY FOR 7 DAYS 03/09/2022 QUEtiapine (SeroqueL) 100 mg tablet at bed time 06/05/2007 psyllium husk, with sugar, (Reguloid, psyllium husk-sucro,) 3 gram/12 gram powder MIX 1 TABLESPOONFUL IN 8 OUNCES OF WATER AND DRINK EVERY DAY pantoprazole (PROTONIX) 40 mg EC tablet TAKE 1 TABLET BY MOUTH EVERY MORNING. DO NOT BREAK, CRUSH, DISSOLVE OR CHEW 09/22/2024 ondansetron (ZOFRAN) 4 mg tablet TAKE 1 TABLET BY MOUTH EVERY TWELVE HOURS NEEDED FOR NAUSEA AND VOMITING 08/22/2024 OLANZapine (ZyPREXA) 5 mg tablet Take 1 tablet (5 mg total) by mouth. nicotine (NICODERM CQ) 14 mg/24 hr APPLY 1 PATCH TOPICALLY TO THE SKIN IN THE MORNING DO NOT SMOKE WHILE USING PATCH 10/30/2024 mirtazapine (REMERON) 15 mg tablet Take 1 tablet (15 mg total) by mouth. 02/09/2023 metFORMIN (GLUCOPHAGE) 1,000 mg tablet Take 1 tablet (1,000 mg total) by mouth 2 (two) times a day. magnesium citrate solution DRINK FULL BOTTLE ONCE TRUEplus Lancets 33 gauge [facility] USE DIRECTED TO TEST BLOOD SUGAR FIVE TIMES DAILY 11/20/2024 lactulose (CHRONULAC) solution GIVE 15 ML BY MOUTH EVERY DAY NEEDED FOR CONSTIPATION 08/22/2024 insulin glargine (Lantus Solostar U-100 Insulin) 100 unit/mL (3 mL) injection pen INJECT 7 UNITS SUBCUTANEOUSLY ONCE DAILY insulin aspart (NovoLOG Flexpen U-100 Insulin) 100 unit/mL (3 mL) injection pen INJECT 4-12 UNITS SUBCUTANEOUSLY BEFORE MEALS DIRECTED PER SLIDING SCALE BLOOD SUGAR 150-200 = 4 UNITS, 201-250 = 6U, 251-300 = 8U, 301-350 = 10U, > 351 = 12U hydrALAZINE (APRESOLINE) 100 mg tablet Take 1 tablet (100 mg total) by mouth 3 (three) times a day with meals. gabapentin (NEURONTIN) 300 mg capsule Take 1 capsule (300 mg total) by mouth daily. 04/07/2022 fluticasone HFA (FLOVENT HFA) 110 mcg/actuation inhaler Inhale 1 puff by mouth 2 (two) times a day. famotidine (PEPCID) 20 mg tablet Take 1 tablet (20 mg total) by mouth 2 (two) times a day. docusate sodium (COLACE) 100 mg capsule Take 1 capsule every day by oral route for 7 days. 09/07/2024 diphenhydrAMINE (Banophen) 25 mg capsule Take 1 capsule (25 mg total) by mouth 1 (one) time each day if needed. 05/01/2022 diclofenac (VOLTAREN) 1 % topical gel APPLY 2 GRAMS TO AFFECTED AREA(S) TWICE DAILY DIRECTED 07/22/2024 glucose 3.75 gram tablet,chewable CHEW 4 TABLETS BY MOUTH NEEDED HYPOGLYCEMIA 11/01/2023 clotrimazole (LOTRIMIN) 1 % vaginal cream INSTILL VAGINALLY EVERY EVENING FOR 7 DAYS cloNIDine ([id number] ) 0.3 mg/24 hr APLICAR 1 PARCHO A LA PIEL MARIFER VEZ CADA SEMANA. REMOVER EL PARCHE JAIR ANTES DE APLICAR UN PARCHE NUEVO. 09/04/2024 carvediloL (COREG) 25 mg tablet Take 1 tablet (25 mg total) by mouth 2 (two) times a day. 08/04/2024 buPROPion SR (Wellbutrin SR) 150 mg 12 hr tablet po bid 06/05/2007 buprenorphine-n aloxone (SUBOXONE) 8-2 mg per SL film DISSOLVE 2 FILMS UNDER THE TONGUE ONCE DAILY FreeStyle [place] Lite monitoring kit use as directed to test blood sugar 09/22/2024 blood sugar diagnostic (FreeStyle Lite Strips) test strip USE DIRECTED TO TEST BLOOD SUGAR THREE TIMES DAILY 11/25/2024 aspirin 81 mg EC tablet Take 1 tablet (81 mg total) by mouth 1 (one) time each day. amLODIPine (NORVASC) 10 mg tablet Take 1 tablet (10 mg total) by mouth 1 (one) time each day. 06/05/2007 albuterol 2.5 mg /3 mL (0.083 %) nebulizer solution INHALE 1 AMPULE USING A NEBULIZER EVERY 6 HOURS NEEDED FOR WHEEZING 08/05/2024 added in this encounter Care Teams Day Light Relief Operator Relationship Specialty Start Date End Date Sammy Vicente MD [address] [place] [address] PCP - General Internal Medicine 08/01/24 documented as of this encounter
--- NOTE | 2025-03-11 14:15 | MHC.OFFVIS ---
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 Required: No Accompanied by: Self / Same As Patient Allergies No Known Allergies Allergy (Verified 02/13/25 15:09) Medication List - Last Reconciled 03/11/25 by Charan Hankins MD acetaminophen 500 mg PO Q8H PRN albuterol sulfate 90 mcg/actuation (Ventolin HFA) 2 puffs inhalation Q4H PRN albuterol sulfate 1 amp inhalation Q6H PRN amlodipine 10 mg PO DAILY aspirin 1 tab PO DAILY buprenorphine-naloxone 12-3 mg 1 film sublingual DAILY calcium acetate(phosphat bind) 667 mg PO TIDWM carvedilol 25 mg PO BID clonidine 1 patch topical WE diclofenac sodium 1% 2 grams topical BID PRN docusate sodium (Colace) 100 mg PO BID glucose 16 grams PO Q15M PRN hydralazine 100 mg PO TID isosorbide dinitrate 30 mg PO TID lactulose 10 grams PO DAILY PRN losartan 100 mg PO DAILY melatonin 5 mg PO BEDTIME mirtazapine 30 mg PO BEDTIME nicotine 1 patch topical DAILY ondansetron HCl 4 mg PO Q12H PRN pantoprazole 40 mg PO DAILY@0630 polyethylene glycol 3350 17 grams PO DAILY sodium zirconium cyclosilicate (Lokelma) 10 grams PO MOWEFR@0900 trazodone 100 mg PO BEDTIME PRN vit B comp no.5-bsddl-K-biotin 1-60-300 mg-mg-mcg ([facility]) 1 tab PO DAILY HPI Comments Details: Pleasant 69-year-old female who is here for follow-up. She has background history of diastolic heart failure, type 2 AR, end-stage renal disease on hemodialysis and rectal prolapse. Recently was in the hospital with rectal pain. She is waiting for an appointment. In the office she is complaining of rectal pain. She is unable to sit on her buttocks and had to lay down on her side. Obviously quite distressed. Denying any chest pain or shortness of breath. On hemodialysis from right chest wall port. Blood pressure reasonable. Taking medications regularly. [facility] Medical History (Updated 03/11/25 @ 15:14 by Charan Hankins MD) Hypertension Proctitis Hypertensive urgency Rectal prolapse Acute left flank pain CKD (chronic kidney disease) Anemia Reactive airway disease Hyponatremia Elevated troponin Volume overload Elevated serum immunoglobulin free light chains Leukocytosis Chronic renal failure Essential hypertension ESRD (end stage renal disease) on dialysis Diabetes mellitus Hemorrhoids that prolapse with straining, but retract spontaneously Hemorrhoids with complication ESRD on dialysis Delirium Sepsis Tachycardia Leukocytosis Fever End stage chronic kidney disease Congestive heart failure with left ventricular dysfunction ESRD (end stage renal disease) Pulmonary congestion COVID-19 virus infection Asthma with COPD with exacerbation COVID ESRD (end stage renal disease) Hypertrophic cardiomyopathy Acute exacerbation of chronic obstructive pulmonary disease (COPD) Heart failure with preserved ejection fraction Constipation End stage renal disease on dialysis Ascites Anasarca Ischemic colitis Acute GI bleeding Anemia Dialysis patient, noncompliant Anemia in chronic kidney disease Opioid withdrawal Essential hypertension (~02/16/25) Surgical History No pertinent past surgical history Family History Other Hypertension Social History Household Members: None Housing: House Do you presently have visiting nurse or other home services: Yes Alcohol intake: never Comment: pt in dialysis at this time. Patient Tobacco Use Status: Current everyday Tobacco user Tobacco use type: Cigarette Cigarette Packs Per Day: 2 Cigarettes Per Day: 1 Years Smoked: 50 +/- e-Cigarette/Vaping Use: Never Used Second Hand Smoke Exposure: No Substance Use Type: Marijuana Advance Directives Date on File: 04/19/23 service: No Current occupational status: disabled Review of Systems Const Denies chills, Denies fatigue, Denies fever(s), Denies frequent falls, Denies weakness, Denies weight gain and Denies weight loss ENT Denies dizziness Card Denies chest pain, Denies leg edema, Denies lightheadedness, Denies palpitations, Denies dyspnea and Denies dyspnea on exertion Resp Denies cough, Denies dyspnea and Denies dyspnea on exertion GI Denies hematochezia Musc Denies abnormal gait, Denies muscle weakness, Denies numbness, Denies radiating pain into limb and Denies tingling Neuro Denies abnormal gait, Denies dizziness, Denies frequent falls, Denies numbness, Denies tingling and Denies weakness Endo Denies fatigue and Denies palpitations Physical Exam Vital Signs: Last Vital Signs Pulse 69 03/11/25 14:19 BP 140/64 H 03/11/25 14:19 GENERAL APPEARANCE: Ill-appearing. In distress due to rectal pain. NECK: no carotid bruit, no jugular venous distention. SKIN: no suspicious lesions, warm and dry. Right chest wall dialysis catheter. HEART: no murmurs, regular rate and rhythm. LUNGS: clear to auscultation bilaterally. ABDOMEN: soft, nontender. EXTREMITIES: no edema. PERIPHERAL PULSES: equal. NEUROLOGIC: No gross deficits, AAO X 3 Assessment & Plan Assessment & Plan (1) Chronic diastolic heart failure: Code(s): I50.32 - Chronic diastolic (congestive) heart failure Category: Medical (2) Hypertension: Code(s): I10 - Essential (primary) hypertension Category: Medical Plan Pleasant 69-year-old lady who is here for follow-up. She has background history of hypertension, diastolic heart failure, end-stage renal disease on hemodialysis and more recently rectal prolapse. She is in lot of pain due to rectal prolapse currently and is waiting for an appointment presumably with the surgeon. Denying any cardiovascular symptoms currently. Appears to be euvolemic. On hemodialysis as mentioned. Blood pressure control is okay. Continue same medications for now. She is at least intermediate risk for perioperative complications in case she needs any surgical procedures. Thank you for allowing me to participate in the care of your patient. Please feel free to contact me if you have any questions. Coding Level of Care Code Est Pt Level 3 (28001) Diagnoses Chronic diastolic heart failure I50.32 Hypertension I10
[2025-03-11 14:19] VITALS: BP 140/64; PULSE 69
--- OUTSIDE RECORDS SUMMARY | 2025-03-11 20:11 | XMS_ITS | Encounter Summary ---
Author Organization [employer] Address [address] [facility] [address] 7t [place] [address] Care Team Providers Care Transitional Care Liaison Name Role Phone Sammy Reilly MD Primary Care Provide r Melissa Jefferson MD Primary Care Provider [phone] Reason for Visit * Reason Comments Med Refill Encounter Details Date Type Department Care Team ([facility] st Contact Info) Description 05/02/2023 Refill [facility] 230 [place] [address] Messi Mccollum MD 230 [place], [place] [phone] Uncomplicated opioid dependence (CMS/HCC) Social History Tobacco [...] [facility] MED[facility]INE [address] [place] [address] Messi Mccollum MD [address] [place] [address] 03/18/2025 9:45 AM EDT Office Visit [facility] [address] [place] [address] Marybeth Campa NP [address] [place] [address] 04/28/2025 11:30 AM EST Office Visit [address] [address] Melissa Jefferson MD [address] [place] [address] 06/05/2025 10:00 AM EST Office Visit [facility] MED[facility]INE [address] [place] [address] Messi Mccollum MD [address] [place] [address] 06/26/2025 2:00 PM EST Office Visit [facility] OPTOMETRY [address] [place] [address] Jaja Mckeon, OD 230 [place] [address] documented as of this encounter Goals Goal [...] Diagnoses Diagnosis Uncomplicated opioid dependence (CMS/HCC) (HCC) Opioid dependence on maintenance agonist therapy, no symptoms (CMS/HCC) (HCC)- Primary documented in this encounter Additional Health Concerns Assessment Noted Time PHQ-9 Depression Total Score: 11 023 9:59 AM EDT documented as of this encounter Care Teams Transitional Care Liaison Relationship Specialty Start Date End Date Sammy Reilly MD 230 [place] [address] PCP - General Internal Medicine 12/23/13 12/03/24 Melissa Jefferson MD 230 [place] [address] PCP - General Family Medicine 12/04/24 [employer] 04/08/22 Tj Larose MD Near Eastern Archaeology Lecturer Nephrology 04/10/24 documented as of this encounter
--- OUTSIDE RECORDS SUMMARY | 2025-03-11 20:11 | XMS_ITS | Encounter Summary ---
Author Organization [employer] Address [address] [facility] 7t [place] [address] Care Team Providers Care Cardroom Manager Name Role Phone Sammy Reilly MD Primary Care Provide r Melissa Jefferson MD Primary Care Provider [phone] Reason for Visit * Reason Comments Med Refill Encounter Details Date Type Department Care Team (Late Contact Info) Description 02/12/2023 Refill [facility] MED[facility]INE [address] [place] [address] Margarita Rob ANP 230 [place], [place] [phone] Social History Tobacco Use Types Packs/Day Years [...] Description 03/13/2025 10:00 AM EDT Office Visit [facility] MEDICINE [address] [place] [address] Messi Mccollum MD 230 [place] [address] 03/18/2025 9:45 AM EDT Office Visit [facility] MED[facility] 230 [place] [address] Marybeth Campa NP 230 [place] [address] 04/28/2025 11:30 AM EST Office Visit [address] [address] Melissa Jefferson MD 230 [place] [address] 06/05/2025 10:00 AM EST Office Visit [address] [address] Messi Mccollum MD 230 [place] [address] 06/26/2025 2:00 PM EST Office Visit [facility] OPTOMETRY [address] [place] [address] Jaja Mckeon, OD 230 [place] [address] documented as of this encounter Goals Goal [...] documented as of this encounter Care Teams Cardroom Manager Relationship Specialty Start Date End Date Sammy Reilly MD [address] [place] [address] PCP - General Internal Medicine 12/23/13 12/03/24 Melissa Jefferson MD [address] [place] [address] PCP - General Family Medicine 12/04/24 [employer] 04/08/22 Tj Larose MD Plastic Process Technician Nephrology 04/10/24 documented as of this encounter
--- OUTSIDE RECORDS SUMMARY | 2025-03-11 20:11 | XMS_ITS | Encounter Summary ---
Author Organization [employer] Address [address] [facility] [address] 7t [place] [address] Care Team Providers Care Boiling Tub Operator Name Role Phone Sammy Reilly MD Primary Care Provide r Melissa Jefferson MD Primary Care Provider [phone] Encounter Details Date Type Department Care Team (Late st Contact Info) Description 09/26/2024 Orders Only [facility] MEDICINE 230 [place] [address] Jessica Rahman, RN Uncomplicated opioid dependence (CMS/HCC) [...] the past 12 months, has t he [employer], gas, oil or water company threatened to [...] Description 03/13/2025 10:00 AM EDT Office Visit [address] [address] Messi Mccollum MD [address] [place] [address] 03/18/2025 9:45 AM EDT Office Visit [address] [address] Marybeth Campa NP [address] [place] [address] 04/28/2025 11:30 AM EST Office Visit [address] [address] Melissa Jefferson MD [address] [place] [address] 06/05/2025 10:00 AM EST Office Visit [address] [place] [address] Messi Mccollum MD 230 [place] [address] 06/26/2025 2:00 PM EST Office Visit [facility] OPTOMETRY [address] [place] [address] Mike, Jaja, OD 230 [place] [address] documented as of this encounter Goals Goal [...] documented as of this encounter Care Teams Boiling Tub Operator Relationship Specialty Start Date End Date Sammy Reilly MD [address] [place] [address] PCP - General Internal Medicine 12/23/13 12/03/24 Melissa Jefferson MD [address] [place] [address] PCP - General Family Medicine 12/04/24 [employer] 04/08/22 Tj Larose MD Master Black Belt Nephrology 04/10/24 documented as of this encounter
--- OUTSIDE RECORDS SUMMARY | 2025-03-11 20:11 | XMS_ITS | Encounter Summary ---
Author Organization [employer] Address [address] [facility] [address] 7t [place] [address] Care Team Providers Care Telephone Operator Name Role Phone Sammy Reilly MD Primary Care Provide r Melissa Jefferson MD Primary Care Provider [phone] Reason for Visit * Reason Comments Med Refill Encounter Details Date Type Department Care Team ([facility] st Contact Info) Description 04/25/2023 Refill [facility]INE 230 [place] [address] Name, MD Tye 230 [place], [place] [phone] Hypertension secondary to other renal disorders; Primary [...] 10:00 AM EDT Office Visit [facility] MED[facility]INE [address] [place] [address] Messi Mccollum MD [address] [place] [address] 03/18/2025 9:45 AM EDT Office Visit [facility]INE [address] [place] [address] Marybeth Campa NP [address] [place] [address] 04/28/2025 11:30 AM EST Office Visit [address] [address] Melissa Jefferson MD [address] [place] [address] 06/05/2025 10:00 AM EST Office Visit [facility] [address] [place] [address] Messi Mccollum MD [address] [place] [address] 06/26/2025 2:00 PM EST Office Visit [facility] OPTOMETRY [address] [place] [address] [phone] Jaja Mckeon, OD 230 [place] [address] documented as of this encounter Goals Goal [...] Persistent disorder of initiating or maintaining sleep Opioid dependence on maintenance agonist therapy, no symptoms (CMS/HCC) (HCC)- Primary documented in this encounter Additional Health Concerns Assessment Noted Time PHQ-9 Depression Total Score: 11 023 9:59 AM EDT documented as of this encounter Care Teams Telephone Operator Relationship Specialty Start Date End Date Sammy Reilly MD 230 [place] [address] PCP - General Internal Medicine 12/23/13 12/03/24 Melissa Jefferson MD 230 [place] [address] PCP - General Family Medicine 12/04/24 [employer] 04/08/22 Tj Larose MD Vehicle Refinisher Nephrology 04/10/24 documented as of this encounter
--- OUTSIDE RECORDS SUMMARY | 2025-03-11 20:11 | XMS_ITS | Encounter Summary ---
Author Organization [employer] Address [address] [facility] [address] 7t [place] [address] Care Team Providers Care Gas Meter Checker Name Role Phone Sammy Reilly MD Primary Care Provide r Melissa Jefferson MD Primary Care Provider [phone] Reason for Visit * Reason Comments Med Refill Encounter Details Date Type Department Care Team (Late st Contact Info) Description 11/21/2023 Refill [facility] PEDS [address] [place] [address] Sammy Reilly MD [address] [place], [place] [phone] Chronic obstructive pulmonary disease, unspecified COPD type [...] the past 12 months, has t he [employer], gas, oil or water company threatened to [...] Description 03/13/2025 10:00 AM EDT Office Visit [address] [address] Messi Mccollum MD [address] [place] [address] 03/18/2025 9:45 AM EDT Office Visit [address] [address] Marybeth Campa NP [address] [place] [address] 04/28/2025 11:30 AM EST Office Visit [address] [address] Melissa Jefferson MD [address] [place] [address] 06/05/2025 10:00 AM EST Office Visit [address] [address] Messi Mccollum MD 230 [place] [address] 06/26/2025 2:00 PM EST Office Visit [facility] OPTOMETRY [address] [place] [address] Jaja Mckeon, OD 230 [place] [address] documented as of this encounter Goals Goal [...] pulmonary disease, unspecified COPD type (CMS/HCC) (HCC) Opioid dependence on maintenance agonist therapy, no symptoms (CMS/HCC) (HCC)- Primary documented in this encounter Additional Health Concerns Assessment Noted Time PHQ-9 Depression Total Score: 11 024 9:25 AM EDT documented as of this encounter Care Teams Gas Meter Checker Relationship Specialty Start Date End Date Sammy Reilly MD 230 [place] [address] PCP - General Internal Medicine 12/23/13 12/03/24 Melissa Jefferson MD 230 [place] [address] PCP - General Family Medicine 12/04/24 [employer] 04/08/22 Tj Larose MD Railroad Auditor Nephrology 04/10/24 documented as of this encounter
--- OUTSIDE RECORDS SUMMARY | 2025-03-11 20:11 | XMS_ITS | Encounter Summary ---
Author Organization [employer] Address [address] [facility] 7t [place] [address] Care Team Providers Care Rehabilitation Case Coordinator Name Role Phone Sammy Reilly MD Primary Care Provide r Melissa Jefferson MD Primary Care Provider [phone] Reason for Visit * Reason Comments Med Refill Encounter Details Date Type Department Care Team ([facility] Contact Info) Description 02/09/2023 Refill [facility] MED[facility]INE [address] [place] [address] Lois Garrett MD 230 [place], [place] [phone] Primary insomnia Social History Tobacco Use Types [...] Office Visit [facility] MED[facility] 230 [place] [address] Messi Mccollum MD 230 [place] [address] 03/18/2025 9:45 AM EDT Office Visit [facility] 230 [place] [address] Marybeth Campa NP 230 [place] [address] 04/28/2025 11:30 AM EST Office Visit [address] [address] Melissa Jefferson MD 230 [place] [address] 06/05/2025 10:00 AM EST Office Visit [address] [address] Messi Mccollum MD 230 [place] [address] 06/26/2025 2:00 PM EST Office Visit [facility] OPTOMETRY [address] [place] [address] Jaja Mckeon, OD 230 [place] [address] documented as of this encounter Goals Goal [...] documented as of this encounter Care Teams Rehabilitation Case Coordinator Relationship Specialty Start Date End Date Sammy Reilly MD 230 [place] [address] PCP - General Internal Medicine 12/23/13 12/03/24 Melissa Jefferson MD 230 [place] [address] PCP - General Family Medicine 12/04/24 [email or web address] 04/08/22 Tj Larose MD Fan Runner Nephrology 04/10/24 documented as of this encounter
--- OUTSIDE RECORDS SUMMARY | 2025-03-11 20:11 | XMS_ITS | Encounter Summary ---
Author Organization [employer] Address 75 [facility] 7t [place] [address] Care Team Providers Care Metal Ceiling Hanger Name Role Phone Sammy Reilly MD Primary Care Provide r Melissa Jefferson MD Primary Care Provider [phone] Encounter Details Date Type Department Care Team (Late st Contact Info) Description 05/08/2022 Orders Only [facility] [address] [place] [address] [phone] Swetha Ribera LPN Social History Tobacco Use [...] Description 03/13/2025 10:00 AM EDT Office Visit [facility] MEDICINE [address] [place] [address] [phone] Messi Mccollum MD [address] [place] [address] [phone] 03/18/2025 9:45 AM EDT Office Visit [facility] [address] [place] [address] [phone] Marybeth Campa NP 230 [place], [place] [phone] 04/28/2025 11:30 AM EST Office Visit [facility] 230 [place] [address] Melissa Jefferson MD 230 [place] [address] 06/05/2025 10:00 AM EST Office Visit [facility] 230 [place] [address] Messi Mccollum MD 230 [place] [address] 06/26/2025 2:00 PM EST Office Visit [facility] OPTOMETRY [address] [place] [address] Mike, Jaja, OD 230 [place] [address] documented as of this encounter Visit Diagnoses Not on filedocumented in this encounter Care Teams Metal Ceiling Hanger Relationship Specialty Start Date End Date Sammy Reilly MD [address] [place] [address] PCP - General Internal Medicine 12/23/13 12/03/24 Melissa Jefferson MD [address] [place] [address] PCP - General Family Medicine 12/04/24 [employer] 04/08/22 Tj Larose MD [employer] Nephrology 04/10/24 documented as of this encounter
--- OUTSIDE RECORDS SUMMARY | 2025-03-11 20:11 | XMS_ITS | Encounter Summary ---
Author Organization [employer] Address [address] [facility] [address] 7t [place] [address] Care Team Providers Care Park Warden Name Role Phone Sammy Reilly MD Primary Care Provide r Melissa Jefferson MD Primary Care Provider [phone] Reason for Visit * Reason Comments Med Refill Encounter Details Date Type Department Care Team ([facility] st Contact Info) Description 04/25/2023 Refill [facility] 230 [place], [place] [phone] Neptali Coles MD 230 [place], [place] [phone] Social History Tobacco Use Types Packs/Day Years [...] Description 03/13/2025 10:00 AM EDT Office Visit [facility] [address] [place] [address] Messi Mccollum MD [address] [place] [address] 03/18/2025 9:45 AM EDT Office Visit [facility] [address] [place] [address] Marybeth Campa NP [address] [place] [address] 04/28/2025 11:30 AM EST Office Visit [address] [address] Melissa Jefferson MD [address] [place] [address] 06/05/2025 10:00 AM EST Office Visit [facility] MED[facility] [address] [place] [address] Messi Mccollum MD [address] [place] [address] 06/26/2025 2:00 PM EST Office Visit [facility] OPTOMETRY [address] [place] [address] Jaja Mckeon, OD 230 [place] [address] documented as of this encounter Goals Goal [...] documented as of this encounter Care Teams Park Warden Relationship Specialty Start Date End Date Sammy Reilly MD [address] [place] [address] PCP - General Internal Medicine 12/23/13 12/03/24 Melissa Jefferson MD [address] [place] [address] PCP - General Family Medicine 12/04/24 [email or web address] 04/08/22 Tj Larose MD Fruit Farmworker Nephrology 04/10/24 documented as of this encounter
--- OUTSIDE RECORDS SUMMARY | 2025-03-11 20:11 | XMS_ITS | Encounter Summary ---
Author Organization [email or web address] Address 75 [facility] 7t [place] [address] Care Team Providers Care Market Analysis Director Name Role Phone Sammy Reilly MD Primary Care Provide r Melissa Jefferson MD Primary Care Provider [phone] Reason for Visit * Reason Comments Med Refill Encounter Details Date Type Department Care Team (Late st Contact Info) Description 05/05/2022 Refill [facility] & PEDS [address] [place] [address] Margarita Rob, ANP 230 [facility] [place] [address] Chronic obstructive pulmonary disease, unspecified COPD type [...] Description 03/13/2025 10:00 AM EDT Office Visit [facility] MEDICINE [address] [place] [address] Messi Mccollum MD 230 [place] [address] 03/18/2025 9:45 AM EDT Office Visit [facility] MEDICINE [address] [place] [address] Marybeth Campa NP 230 [place] [address] 04/28/2025 11:30 AM EST Office Visit [address] [address] Melissa Jefferson MD [address] [place] [address] 06/05/2025 10:00 AM EST Office Visit [facility] MEDICINE [address] [place] [address] Messi Mccollum MD 230 [place] [address] 06/26/2025 2:00 PM EST Office Visit [facility] OPTOMETRY [address] [place] [address] Jaja Mckeon, OD 230 [place] [address] documented as of this encounter Visit Diagnoses Diagnosis Chronic obstructive pulmonary disease, unspecified COPD type (CMS/HCC) (HCC)- Primary Opioid dependence on maintenance agonist therapy, no symptoms (CMS/HCC) (HCC)- Primary documented in this encounter Care Teams Market Analysis Director Relationship Specialty Start Date End Date Sammy Reilly MD [address] [place] [address] PCP - General Internal Medicine 12/23/13 12/03/24 Melissa Jefferson MD 230 [place] [address] PCP - General Family Medicine 12/04/24 [employer] 04/08/22 Tj Larose MD Ear Mold Laboratory Technician Nephrology 04/10/24 documented as of this encounter
--- OUTSIDE RECORDS SUMMARY | 2025-03-11 20:11 | XMS_ITS | Encounter Summary ---
Author Organization [employer] Address 75 [facility] 7t [place] [address] Care Team Providers Care Net Washer Name Role Phone Sammy Reilly MD Primary Care Provide r Melissa Jefferson MD Primary Care Provider [phone] Reason for Visit * Reason Comments Med Refill Encounter Details Date Type Department Care Team (Late Contact Info) Description 02/12/2023 Refill [facility] MEDICINE 230 [place] [address] Lois Garrett MD [address] [place] [address] Hypertension secondary to other renal disorders Social [...] [facility] MEDICINE 230 [place] [address] Messi Mccollum MD 230 [place] [address] 03/18/2025 9:45 AM EDT Office Visit [facility] 230 [place] [address] Marybeth Campa NP 230 [place] [address] 04/28/2025 11:30 AM EST Office Visit [address] [address] Melissa Jefferson MD 230 [place] [address] 06/05/2025 10:00 AM EST Office Visit [address] [address] Messi Mccollum MD 230 [place] [address] 06/26/2025 2:00 PM EST Office Visit [facility] OPTOMETRY [address] [place] [address] Jaja Mckeon, OD 230 [place] [address] documented as of this encounter Goals Goal [...] Diagnosis Hypertension secondary to other renal disorders Opioid dependence on maintenance agonist therapy, no symptoms (CMS/HCC) (HCC)- Primary documented in this encounter Additional Health Concerns Assessment Noted Time PHQ-9 Depression Total Score: 11 023 9:59 AM EDT documented as of this encounter Care Teams Net Washer Relationship Specialty Start Date End Date Sammy Reilly MD 230 [place] [address] PCP - General Internal Medicine 12/23/13 12/03/24 Melissa Jefferson MD 230 [place] [address] PCP - General Family Medicine 12/04/24 [employer] 04/08/22 Tj Larose MD Aging Department Supervisor Nephrology 04/10/24 documented as of this encounter
--- OUTSIDE RECORDS SUMMARY | 2025-03-11 20:11 | XMS_ITS | Encounter Summary ---
Author Organization [employer] Address 75 [facility] [address] 7t [place] [address] Care Team Providers Care Agriculture Technician Name Role Phone Sammy Reilly MD Primary Care Provide r Melissa Jefferson MD Primary Care Provider [phone] Reason for Visit * Reason Comments Med Refill Encounter Details Date Type Department Care Team ([facility] st Contact Info) Description 04/25/2023 Refill [facility] 230 [place] [address] Messi Mccollum MD 230 [place], [place] [phone] Uncomplicated opioid dependence (CMS/HCC) Social History Tobacco [...] Office Visit [facility] MED[facility] [address] [place] [address] Messi Mccollum MD [address] [place] [address] 03/18/2025 9:45 AM EDT Office Visit [facility] MED[facility] [address] [place] [address] Marybeth Campa NP [address] [place] [address] 04/28/2025 11:30 AM EST Office Visit [address] [address] Melissa Jefferson MD [address] [place] [address] 06/05/2025 10:00 AM EST Office Visit [facility] [address] [place] [address] Messi Mccollum MD [address] [place] [address] 06/26/2025 2:00 PM EST Office Visit [facility] OPTOMETRY [address] [place] [address] Jaja Mckeon, OD 230 [place] [address] documented as of this encounter Goals Goal [...] documented as of this encounter Care Teams Agriculture Technician Relationship Specialty Start Date End Date Sammy Reilly MD 230 [place] [address] PCP - General Internal Medicine 12/23/13 12/03/24 Melissa Jefferson MD 230 [place] [address] PCP - General Family Medicine 12/04/24 [email or web address] 04/08/22 Tj Larose MD Welder Fabricator Nephrology 04/10/24 documented as of this encounter
--- OUTSIDE RECORDS SUMMARY | 2025-03-11 20:11 | XMS_ITS | Encounter Summary ---
Author Organization [employer] Address 75 [facility] 7t [place] [address] Care Team Providers Care Home Health Care Worker Name Role Phone Sammy Reilly MD Primary Care Provide r Melissa Jefferson MD Primary Care Provider [phone] Reason for Visit * Reason Comments Med Refill Encounter Details Date Type Department Care Team ([facility] Contact Info) Description 05/30/2022 Refill [facility] [address] [place] [address] Sammy Reilly MD 230 [place], [place] [phone] Social History Tobacco Use Types Packs/Day Years [...] Upcoming Encounters Date Type Department Care Team ([facility] Contact Info) Description 03/13/2025 10:00 AM EDT Office Visit [facility] [address] [place] [address] Messi Mccollum MD [address] [place] [address] 03/18/2025 9:45 AM EDT Office Visit [facility] [address] [place] [address] Marybeth Campa NP 230 [place] [address] 04/28/2025 11:30 AM EST Office Visit [address] [address] Melissa Jefferson MD [address] [place] [address] 06/05/2025 10:00 AM EST Office Visit [address] [address] Messi Mccollum MD 230 [place] [address] 06/26/2025 2:00 PM EST Office Visit [facility] [address] [place] [address] Jaja Mckeon, OD 230 [place] [address] documented as of this encounter Visit Diagnoses Not on filedocumented in this encounter Care Teams Home Health Care Worker Relationship Specialty Start Date End Date Sammy Reilly MD [address] [place] [address] PCP - General Internal Medicine 12/23/13 12/03/24 Melissa Jefferson MD [address] [place] [address] PCP - General Family Medicine 12/04/24 [employer] 04/08/22 Tj Larose MD T[employer] Vulcanizer Nephrology 04/10/24 documented as of this encounter
--- OUTSIDE RECORDS SUMMARY | 2025-03-11 20:12 | XMS_ITS | Encounter Summary ---
Author Organization [employer] Address 75 [facility] 7t [place] [address] Care Team Providers Care Tool Setter Name Role Phone Sammy Reilly MD Primary Care Provide r Melissa Jefferson MD Primary Care Provider [phone] Reason for Visit * Reason Comments Med Refill Encounter Details Date Type Department Care Team ([facility] st Contact Info) Description 11/10/2022 Refill [facility] 230 [place] [address] Hattie Gonzales MD 230 [place] [address] Social History Tobacco Use Types Packs/Day Years [...] 03/13/2025 10:00 AM EDT Office Visit [facility] [address] [place] [address] Messi Mccollum MD 230 [place] [address] 03/18/2025 9:45 AM EDT Office Visit [address] [address] Marybeth Campa NP 230 [place] [address] 04/28/2025 11:30 AM EST Office Visit [address] [address] Melissa Jefferson MD 230 [place] [address] 06/05/2025 10:00 AM EST Office Visit [address] [address] Messi Mccollum MD 230 [place] [address] 06/26/2025 2:00 PM EST Office Visit [facility] [address] [place] [address] Jaja Mckeon, OD 230 [place] [address] documented as of this encounter Goals Goal [...] as of this encounter Care Teams Tool Setter Relationship Specialty Start Date End Date Sammy Reilly MD 230 [place] [address] PCP - General Internal Medicine 12/23/13 12/03/24 Melissa Jefferson MD 230 [place] [address] PCP - General Family Medicine 12/04/24 [employer] 04/08/22 Tj Larose MD Product Demonstrator Nephrology 04/10/24 documented as of this encounter
--- OUTSIDE RECORDS SUMMARY | 2025-03-11 20:12 | XMS_ITS | Encounter Summary ---
Author Organization [employer] Address [address] [facility] [address] 7t [place] [address] Care Team Providers Care Hand Packer Name Role Phone Melissa Jefferson MD Primary Care Provider [phone] Reason for Visit * Reason Comments Med Refill Encounter Details Date Type Department Care Team (Late st Contact Info) Description 03/06/2025 Refill [facility] 230 [place] [address] Messi Mccollum MD 230 [place] [address] Uncomplicated opioid dependence (CMS/HCC) ([facility]) Social History Tobacco Use Types Packs/Day Years [...] Visit [facility] [address] [place] [address] Messi Mccollum MD [address] [place] [address] 03/18/2025 9:45 AM EDT Office Visit [facility] [address] [place] [address] Marybeth Campa NP [address] [place] [address] 04/28/2025 11:30 AM EST Office Visit [address] [address] Melissa Jefferson MD [address] [place] [address] 06/05/2025 10:00 AM EST Office Visit [facility] 230 [place] [address] Messi Mccollum MD 230 [place] [address] 06/26/2025 2:00 PM EST Office Visit [facility] [address] [place] [address] MikeJaja hunt, OD 230 [place] [address] documented as of this encounter Goals Goal [...] documented as of this encounter Care Teams Hand Packer Relationship Specialty Start Date End Date Melissa Jefferson MD 230 [place] [address] PCP - General Family Medicine 12/04/24 [employer] 04/08/22 Tj Larose MD Third Grade Teacher Nephrology 04/10/24 documented as of this encounter
--- OUTSIDE RECORDS SUMMARY | 2025-03-11 20:12 | XMS_ITS | Encounter Summary ---
Author Organization [employer] Address [address] [facility] [address] 7t [place] [address] Care Team Providers Care Ophthalmic Pathologist Name Role Phone Sammy Reilly MD Primary Care Provide r Melissa Jefferson MD Primary Care Provider [phone] Reason for Visit * Reason Comments Med Refill Encounter Details Date Type Department Care Team (Late st Contact Info) Description 10/23/2023 Refill [facility] [address] [place] [address] Sammy Relily MD [address] [place], [place] [phone] Constipation due to opioid therapy Social History [...] Description 03/13/2025 10:00 AM EDT Office Visit [address] [address] Messi Mccollum MD [address] [place] [address] 03/18/2025 9:45 AM EDT Office Visit [address] [address] Marybeth Campa NP [address] [place] [address] 04/28/2025 11:30 AM EST Office Visit [address] [address] Melissa Jefferson MD [address] [place] [address] 06/05/2025 10:00 AM EST Office Visit [address] [address] Messi Mccollum MD [address] [place] [phone] 06/26/2025 2:00 PM EST Office Visit [facility] [address] [place], [place] [phone] Jaja Mckeon, OD 230 [place] [address] documented as of this encounter Goals Goal [...] Diagnoses Diagnosis Constipation due to opioid therapy Opioid dependence on maintenance agonist therapy, no symptoms (CMS/HCC) (HCC)- Primary documented in this encounter Additional Health Concerns Assessment Noted Time PHQ-9 Depression Total Score: 11 024 9:25 AM EDT documented as of this encounter Care Teams Ophthalmic Pathologist Relationship Specialty Start Date End Date Sammy Reilly MD 230 [place] [address] PCP - General Internal Medicine 12/23/13 12/03/24 Melissa Jefferson MD 230 [place] [address] PCP - General Family Medicine 12/04/24 [employer] 04/08/22 Tj Larose MD Back Seam Stitcher Nephrology 04/10/24 documented as of this encounter
--- OUTSIDE RECORDS SUMMARY | 2025-03-11 20:12 | XMS_ITS | Encounter Summary ---
Author Organization [employer] Address 75 [facility] 7t [place] [address] Care Team Providers Care Business Unit Director Name Role Phone Sammy Reilly MD Primary Care Provide r Melissa Jefferson MD Primary Care Provider [phone] Encounter Details Date Type Department Care Team ([facility] st Contact Info) Description 04/07/2024 Orders Only [facility] MED [facility] PEDS 505 [place] [address] Sebastián Lora MD 505 [place], [place] [phone] Social History Tobacco Use Types Packs/Day Years [...] Description 03/13/2025 10:00 AM EDT Office Visit [address] [address] Messi Mccollum MD [address] [place] [address] 03/18/2025 9:45 AM EDT Office Visit [address] [address] Marybeth Campa NP [address] [place] [address] 04/28/2025 11:30 AM EST Office Visit [address] [address] Melissa Jefferson MD [address] [place] [address] 06/05/2025 10:00 AM EST Office Visit [address] [place] [address] Messi Mccollum MD 230 [place], [place] [phone] 06/26/2025 2:00 PM EST Office Visit [facility] [address] [place] [address] Jaja Mckeon, OD 230 [place] [address] documented as of this encounter Goals Goal [...] as of this encounter Care Teams Business Unit Director Relationship Specialty Start Date End Date Sammy Reilly MD 230 [place] [address] PCP - General Internal Medicine 12/23/13 12/03/24 Melissa Jefferson MD 230 [place], [place] [phone] PCP - General Family Medicine 12/04/24 [employer] 04/08/22 Tj Larose MD [employer] Nephrology 04/10/24 documented as of this encounter
--- OUTSIDE RECORDS SUMMARY | 2025-03-11 20:12 | XMS_ITS | Encounter Summary ---
Author Organization [employer] Address 75 [facility] 7t [place] [address] Care Team Providers Care Capacity Planning Manager Name Role Phone Sammy Reilly MD Primary Care Provide r Melissa Jefferson MD Primary Care Provider [phone] Reason for Visit * Reason Comments Med Refill Encounter Details Date Type Department Care Team ([facility] st Contact Info) Description 11/29/2022 Refill [facility]INE 230 [place] [address] Messi Mccollum MD 230 [place] [address] Tobacco use disorder Social History Tobacco Use [...] Description 03/13/2025 10:00 AM EDT Office Visit [facility] [address] [place] [address] Messi Mccollum MD 230 [place] [address] 03/18/2025 9:45 AM EDT Office Visit [address] [address] Marybeth Campa NP 230 [place] [address] 04/28/2025 11:30 AM EST Office Visit [address] [address] Melissa Jefferson MD 230 [place] [address] 06/05/2025 10:00 AM EST Office Visit [address] [address] Messi Mccollum MD 230 [place] [address] 06/26/2025 2:00 PM EST Office Visit [facility] OPT[facility] [address] [place] [address] Jaja Mckeon, OD 230 [place] [address] documented as of this encounter Goals Goal Patient Goal Type Associated Problems Recent Progress Patient-Stated? Author Check and record your blood sugars as directed Blood Pressure No Jimbo Burris PharmD Short-term: Promote adherence to treatment regimen General Jimbo Barlow PharmD Take your medication every day Lifestyle No Jimbo Burris PharmD documented as of this encounter Visit Diagnoses Diagnosis Tobacco use disorder Opioid dependence on maintenance agonist therapy, no symptoms (CMS/HCC) (HCC)- Primary documented in this encounter Additional Health Concerns Assessment Noted Time PHQ-9 Depression Total Score: 11 023 9:59 AM EDT documented as of this encounter Care Teams Capacity Planning Manager Relationship Specialty Start Date End Date Sammy Reilly MD 230 [place] [address] PCP - General Internal Medicine 12/23/13 12/03/24 Melissa Jefferson MD 230 [place] [address] PCP - General Family Medicine 12/04/24 [employer] 04/08/22 Tj Larose MD Hand Rigger Nephrology 04/10/24 documented as of this encounter
--- OUTSIDE RECORDS SUMMARY | 2025-03-11 20:12 | XMS_ITS | Clinical Summary ---
Author Organization [facility] Address [address] [place] [address] Care Team Providers Care Human Resource Assistant Name Role Phone Sammy Strickland MD Primary [...] 4-dose series) 1976 Mammogram 1996 Colonoscopy 2001 RSV Vaccine 50 years and old er and Patients (1 - Risk 50-74 years 1-dose series) 2006 Zoster (Shingles) Vaccine (1 of 2) 2006 DXA Bone Density (Females,Ages 65 and older) Influenza Vaccine 12/19/2024 COVID-19 Vaccine ( season) 2025 Insurance [facility] Advance Directives * Full Code (Latest Code Status on File) Date Activated Date Inactivated Comments 03/27/2022 6:52 AM Care Teams Human Resource Assistant Relationship Specialty Start Date End Date Sammy Strickland MD [address] [place] [address] PCP - General 03/27/22
--- OUTSIDE RECORDS SUMMARY | 2025-03-11 20:12 | XMS_ITS | Encounter Summary ---
Author Organization [employer] Address 75 [facility] 7t [place] [address] Care Team Providers Care Tractor Trailer Technician Name Role Phone Sammy Reilly MD Primary Care Provide r Melissa Jefferson MD Primary Care Provider [phone] Reason for Visit * Reason Onset Date Comments Referral 09/14/2022 Encounter Details Date Type Department Care Team ([facility] st Contact Info) Description 09/14/2022 Telephone [facility] MEDICINE 230 [place], [place] [phone] Sammy Reilly MD 230 [place], [place] [phone] Referral Social History Tobacco Use Types Packs/Day [...] appt. Heidy stated Chelly who is her PATTERN CHECKER is the only who fully care for her and keeps her going to appts, she also has VNA that come 2x a day and an CITY WELLNESS COORDINATOR that comes to check up on her as well. Heidy verbalized understanding and denied having any further questions or concerns at this time. * Telephone Encounter - Brandee Christie - 09/14/2022 10:32 AM EDT Tc from Heidy Bahena Nurse with [facility] requesting a status on other two referral for Pulmonary and GI. Please contact Heidy at [phone] documented in this encounter Plan of Treatment Upcoming Encounters Date Type Department Care Team (Late st Contact Info) Description 03/13/2025 10:00 AM EDT Office Visit [facility] MEDICINE [address] [place] [address] Messi Mccollum MD [address] [place] [address] 03/18/2025 9:45 AM EDT Office Visit [address] [address] Marybeth Campa NP 230 [place] [address] 04/28/2025 11:30 AM EST Office Visit [address] [address] Melissa Jefferson MD 230 [place] [address] 06/05/2025 10:00 AM EST Office Visit [facility] MEDICINE 230 [place] [address] Messi Mccollum MD 230 [place] [address] 06/26/2025 2:00 PM EST Office Visit [facility] OPTOMETRY [address] [place] [address] Jaja Mckeon, OD 230 [place] [address] documented as of this encounter Visit Diagnoses Diagnosis Uncomplicated opioid dependence (CMS/HCC) (HCC) Opioid dependence on maintenance agonist therapy, no symptoms (CMS/HCC) (HCC)- Primary documented in this encounter Care Teams Tractor Trailer Technician Relationship Specialty Start Date End Date Sammy Reilly MD [address] [place] [address] PCP - General Internal Medicine 12/23/13 12/03/24 Melissa Jefferson MD [address] [place] [address] PCP - General Family Medicine 12/04/24 [employer] 04/08/22 Tj Larose MD Payroll Auditor Nephrology 04/10/24 documented as of this encounter
--- OUTSIDE RECORDS SUMMARY | 2025-03-11 20:12 | XMS_ITS | Encounter Summary ---
Author Organization [employer] Address 75 [facility] 7t [place] [address] Care Team Providers Care Systems Integration Manager Name Role Phone Sammy Reilly MD Primary Care Provide r Melissa Jefferson MD Primary Care Provider [phone] Reason for Visit * Reason Onset Date Comments Paperwork/Forms 10/22/2023 Encounter Details Date Type Department Care Team ([facility] st Contact Info) Description 10/22/2023 Telephone [facility] MEDICINE 230 [place], [place] [phone] Sammy Reilly MD 230 [place], [place] [phone] Paperwork/Forms Social History Tobacco Use Types Packs/Day [...] 10:00 AM EDT Office Visit [facility] MEDICINE [address] [place] [address] Messi Mccollum MD [address] [place] [address] 03/18/2025 9:45 AM EDT Office Visit [address] [address] Marybeth Campa NP [address] [place] [address] 04/28/2025 11:30 AM EST Office Visit [address] [address] Melissa Jefferson MD 230 [place] [address] 06/05/2025 10:00 AM EST Office Visit [facility] MEDICINE 230 [place] [address] Messi Mccollum MD 230 [place] [address] 06/26/2025 2:00 PM EST Office Visit [facility] OPTOMETRY [address] [place] [address] Jaja Mckeon, OD 230 [place] [address] documented as of this encounter Goals Goal [...] documented as of this encounter Care Teams Systems Integration Manager Relationship Specialty Start Date End Date Sammy Reilly MD 230 [place] [address] PCP - General Internal Medicine 12/23/13 12/03/24 Melissa Jefferson MD 230 [place] [address] PCP - General Family Medicine 12/04/24 [employer] 04/08/22 Tj Larose MD Production Lapping Machine Operator Nephrology 04/10/24 documented as of this encounter
--- OUTSIDE RECORDS SUMMARY | 2025-03-11 20:12 | XMS_ITS | Encounter Summary ---
Author Organization [employer] Address [address] [facility] [address]t [place] [address] Care Team Providers Care Family Health Nurse Practitioner Name Role Phone Melissa Jefferson MD Primary Care Provider [phone] Reason for Visit * Reason Onset Date Comments Med Refill 03/09/2025 Encounter Details Date Type Department Care Team (Late st Contact Info) Description 03/09/2025 Refill [facility] MEDICINE 230 [place] [address] Jessica Rahman, RN Uncomplicated opioid dependence (CMS/HCC) (HCC) Social History Tobacco Use Types Packs/Day Years [...] Description 03/13/2025 10:00 AM EDT Office Visit [address] [address] Messi Mccollum MD [address] [place] [address] 03/18/2025 9:45 AM EDT Office Visit [address] [address] Marybeth Campa NP [address] [place] [address] 04/28/2025 11:30 AM EST Office Visit [address] [address] Melissa Jefferson MD [address] [place] [address] 06/05/2025 10:00 AM EST Office Visit [address] [place] [address] Messi Mccollum MD 230 [place] [address] 06/26/2025 2:00 PM EST Office Visit [facility] OPTOM[facility] [address] [place] [address] Mike Jaja, OD 230 [place] [address] documented as of this encounter Goals Goal [...] documented as of this encounter Care Teams Family Health Nurse Practitioner Relationship Specialty Start Date End Date Melissa Jefferson MD [address] [place] [address] PCP - General Family Medicine 12/04/24 [employer] 04/08/22 Tj Larose MD Car Salesperson Nephrology 04/10/24 documented as of this encounter
--- OUTSIDE RECORDS SUMMARY | 2025-03-11 20:12 | XMS_ITS | Encounter Summary ---
Author Organization [employer] Address [address] [facility] [address] 7t [place] [address] Care Team Providers Care Urban Designer Name Role Phone Sammy Reilly MD Primary Care Provide r Melissa Jefferson MD Primary Care Provider [phone] Reason for Visit * Reason Comments Med Refill Encounter Details Date Type Department Care Team ([facility] st Contact Info) Description 05/09/2023 Refill [facility] MEDICINE 230 [place] [address] Sammy Reilly MD 230 [place] [address] Social History Tobacco Use Types Packs/Day Years [...] EDT Office Visit [facility] MEDICINE [address] [place] [address] Messi Mccollum MD [address] [place] [address] 03/18/2025 9:45 AM EDT Office Visit [facility] MED[facility]INE [address] [place] [address] Marybeth Campa NP [address] [place] [address] 04/28/2025 11:30 AM EST Office Visit [address] [address] Melissa Jefferson MD [address] [place] [address] 06/05/2025 10:00 AM EST Office Visit [facility] MEDICINE [address] [place] [address] Messi Mccollum MD [address] [place] [address] 06/26/2025 2:00 PM EST Office Visit [facility] OPTOMETRY [address] [place] [place] [address] Jaja Mckeon, OD 230 [place] [address] documented as of this encounter Goals Goal [...] documented as of this encounter Care Teams Urban Designer Relationship Specialty Start Date End Date Sammy Reilly MD [address] [place] [address] PCP - General Internal Medicine 12/23/13 12/03/24 Melissa Jefferson MD [address] [place] [address] PCP - General Family Medicine 12/04/24 [employer] 04/08/22 Tj Larose MD Imaging Clerk Nephrology 04/10/24 documented as of this encounter
--- OUTSIDE RECORDS SUMMARY | 2025-03-11 20:12 | XMS_ITS | Clinical Summary ---
Author Organization [employer] Address [address] [facility] [address] [place] [address] Care Team Providers Care Gm Video Name Role Phone Melissa Jefferson MD Primary Care Provider [phone] Allergies No known active allergies Medications * This document contains information received from the source organization and may not represent a complete record from that organization. sennosides (Senokot) 8.6 MG tablet TAKE 2 TABLETS BY MOUTH AT BEDTIME Active Spacer/Aero-Hol ding Chambers (Compact Space Chamber) deviceIndicatio ns:Icelandic Space chamber use with albuterol pump Active [...] obstructive pulmonary disease, unspecified COPD type (CMS/HCC) ([facility]) INHALE 2 PUFFS BY MOUTH EVERY 4 TO 6 HOURS NEEDED FOR COUGH, WHEEZING, OR SHORTNESS OF BREATH 18 g 3 025 Active albuterol (2.5 MG/3ML) 0.083% nebulizer solutionIndicat ions:Chronic obstructive pulmonary disease, unspecified COPD type (CMS/HCC) ([facility]) INHALE 1 AMPULE USING A NEBULIZER EVERY 6 HOURS NEEDED FOR WHEEZING 90 mL 3 025 Active mupirocin (Bactroban) 2 % ointmentIndicat ions:Chronic obstructive pulmonary disease, unspecified COPD type (CMS/HCC) ([facility]) APPLY TOPICALLY TO THE AFFECTED AREA(S) THREE [...] DAY 30 tablet 11 025 Active B Hojzmki-Y-Beoqo Acid (Elle-Sharifa Rx) 1 MG tablet TAKE [...] BLOOD SUGAR FIVE TIMES DAILY 100 each 025 Active glucose blood (FREESTYLE LITE) test stripIndication s:Type 2 diabetes mellitus with chronic kidney disease on chronic dialysis, with long-term current use of insulin (HCC) USE TO TEST BLOOD SUGAR THREE TIMES DAILY 100 strip 025 Active lactulose (Chronulac) 10 GM/15ML solutionIndicat ions:Constipati on, unspecified constipation type GIVE 15 ML BY MOUTH EVERY DAY NEEDED FOR CONSTIPATION 473 mL 3 025 Active ondansetron (Zofran) 4 MG tabletIndicatio ns:Nausea TAKE 1 TABLET BY MOUTH EVERY TWELVE HOURS NEEDED FOR NAUSEA AND VOMITING 20 tablet 1 08/15/2 025 Active docusate sodium (Colace) 100 MG capsule TAKE 2 CAPSULES BY MOUTH EVERY DAY IN THE MORNING 180 capsule Active doxazosin (Cardura) 1 MG tablet take 4 tablets (4 mg) by mouth at bedtime Active Golytely 236 g solution See Instructions, Follow instructions from GI, # 4,000 mL, 0 Refills, Maintenance, 11/26/24 4:51:00 PM EDT, [facility], Partial fill upon patient request if [...] TWICE DAILY DIRECTED 100 g 2 Active buprenorphine-n aloxone (Suboxone) 12-3 MG per sublingual filmIndications :Uncomplicated opioid dependence (CMS/HCC) ([facility]) Place 1 Film under the tongue Once per day. 1/2 film under tongue twice daily. Do not start before March 13, 2025. 28 Film 2 025 2025 Active Diclofenac Sodium 1 % gelIndications: Chronic [...] day 510 g 2 025 2024 Discontinued buprenorphine-n aloxone (Suboxone) 12-3 MG per sublingual filmIndications :Uncomplicated opioid dependence (CMS/HCC) (HCC) Place 1 Film under the tongue Once per day. / film under tongue twice daily. Do not start before December 19, 2024. 28 Film 2 025 2024 Discontinued(R eorder (will not trigger notification to Pharmacy)) Active Problems Problem Noted Date Diagnosed Date Acute respiratory failure, u nspecified whether with hypoxia or hypercapnia 02/12/2025 Assessment & Plan (02/16/2025 10:25 AM EDT): Referred to hospital for impending respiratory failure EMS called and handoff given to clod puller on scene Acute pancreatitis 02/12/2025 Depression 02/12/2025 Chronic GERD 02/12/2025 Illiterate 02/12/2025 Primary localized osteoarthritis of knees, bilat eral 02/12/2025 Pulmonary edema 02/12/2025 Hx of non-ST elevation myocardial infarction (NS KAYLA) 10/16/2024 Uncontrolled hypertension 09/12/2024 Assessment & Plan (11/03/2024 4:31 PM EDT): Patient is clinically asymptomatic I called today her VNA Heidy and her agency sales management assistant Tj Larose MD at [phone], he tells me he is tired during [...] follow up instructions and follow-up also with agency sales management assistant at dialysis sessions Assessment & Plan [...] 9:17 AM EDT): Pt recently admitted to [facility] for hyperkalemia. Pt's K improved after Lokelma and HD. Her Losartan was discontinued as well Plan: Repeat BMP Hospital discharge follow-up 10/18/2023 Assessment & Plan (07/15/2024 3:41 PM EST): Pt recently admitted to [facility] from 05/29 until 06/04 after sresented to ER with altered MS and SOB. Found to have hyperkalemia 6.6, HTN, pulmonary edema needing BiPAP support. Undergone emergent dialysis. Also found to have acute pancreatitis with elevated lipase (trended down during hospital stay). Had GI, Nephrology, and Psychiatry consultations while inpatient. Assessment & Plan (10/18/2023 9:17 AM EDT): Pt recently admitted to [facility] 10/16/2023 for hyperkalemia. Pt's K improved after Lokelma and HD. Her Losartan was discontinued as well Plan: Repeat BMP Rectal prolapse 10/18/2023 Assessment & Plan (09/12/2024 4:17 PM EDT): I took today to Heidy her VNA she tells me she does have an upcoming appointment with surgery she does not know exactly the date tells me MATERIALS AND CORROSION ENGINEER knows, I tried to contact also MATERIALS AND CORROSION ENGINEER but I was unsuccessful I advised patient to be sure she has that appointment and do not miss it Assessment & Plan (07/15/2024 4:01 PM EST): Televisit Pt is well known to the office of General surgeon Dr. Edmundo Mendez who last saw her on 06/16/2024 Patient requested a second opinion at [facility] to discuss her options. Pt was [...] by Dr. Natalie Thrasher General surgeon at [facility] for a full colonoscopy Assessment & Plan (03/11/2024 9:23 AM EDT): Pt here for a follow up after she was seen again at [facility] ER with c/o rectal prolapse. Pt is [...] basis. Patient requested a second opinion at [facility] to discuss her options. This referral has been placed, appointment has been scheduled for 05/22/2024 Assessment & Plan (10/18/2023 10:01 AM EDT): Patient with a rectal prolapse Plan: Stat referral to colorectal surgeon Dr Edmundo Luis Chronic diastolic congestive heart failure 06/27 Assessment & Plan (07/15/2024 4:07 PM EST): Pt previously admitted to [facility] from 03/10/22-03/13/22 for further management with a diagnosis of Acute hypoxemic respiratory failure possibly due to fluid overload/ESRD. Patient received HD and improved. Pt was subsequently readmitted to [facility] from 03/26/22 - 03/27/22 for CHF, hypoxia and ESRD Patient admitted at [facility] from 03/27/22 - 04/07/22. ProBNP elevated >70,000 on 03/27. volume status improved after dyalisis on 03/27. ECHO showed EF 45% . Cardiology consult recommended outpt ischemic work up. [facility] Cardiology called pt on 11/14/23 to schedule new patient appt, they LVM and sent letter out to book. LB She never went to see transportation operations manager will refer back Assessment & Plan (10/18/2023 9:34 AM EDT): Pt previously admitted to [facility] from 03/10/22-03/13/22 for further management with a diagnosis of Acute hypoxemic respiratory failure possibly due to fluid overload/ESRD. Patient received HD and improved. Pt was subsequently readmitted to [facility] from 03/26/22 - 03/27/22 for CHF, hypoxia and ESRD Patient admitted at [facility] from 03/27/22 - 04/07/22. ProBNP elevated >70,000 on 03/27. volume status improved after dyalisis on 03/27. ECHO showed EF 45% . Cardiology consult recommended outpt ischemic work up. She never went to see transportation operations manager will refer back Assessment & Plan (12/28/2022 10:03 AM EDT): Pt previously admitted to [facility] from 03/10/22-03/13/22 for further management with a diagnosis of Acute hypoxemic respiratory failure possibly due to fluid overload/ESRD. Patient received HD and improved. Pt was subsequently readmitted to [facility] from 03/26/22 - 03/27/22 for CHF, hypoxia and ESRD Patient admitted at [facility] from 03/27/22 - 04/07/22. ProBNP elevated >70,000 on 03/27. volume status improved after dyalisis on 03/27. ECHO showed EF 45% . Cardiology consult recommended outpt ischemic work up. Pt Tells me she finally went to see the Rehabilitation Assistant . 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 Pt has been evaluated for this at [facility] Vascular surgery. last note on record from [...] Pt has been evaluated for this at [facility]. last note on record from 01/08/2012 mentioned that this does not offer any major risk and recommended prn f/u Assessment & Plan (12/28/2022 9:50 AM EDT): Pt has a Hx of a 9 mm right renal artery aneurysm seen on most recent CTA on 06/08/2011 but No stenosis. This was done in the ER. Pt has been evaluated for this at [facility]. last note on record from [...] for a follow up, seen at our [facility] after pt reported 7 days w/o [...] visit today but promised to go to [facility] hospital tomorrow AM. Will request status check next business day (10/02/22) Zofran refilled per request, however reviewed med safety and SE Follow up as needed, patient in agreement with plan End-stage renal disease on hemodialysis ([facility]/HCC ) 04/17/2022 Assessment & Plan (07/15/2024 4:15 [...] w/ pt Combined drug dependence excluding opioids ([facility]) 11/02/2011 Assessment & Plan (12/28/2022 9:50 AM [...] Mammogram: 01/25/2019 , referred missed appointment previously, MATERIALS AND CORROSION ENGINEER tells me she will make the appointment Pap Smear: NL 05/29/2018 Colonoscopy: 07/03/2007, While in the Hospital seen by Dr. Schroeder 05/2022 underwent colonoscopy to mid transverse colon limited as patient refused prepped no colitis or proctitis, noted to have normal mucosa GI recommend to advance diet COVID-19 05/09/2022 06/27/2022 Obesity 11/29/2011 02/16/2025 Encounters Date Type Department Care Team Description 03/09/2025 Refill [facility] [address] [place] [address] [phone] Jessica Rahman RN Uncomplicated opioid dependence ([facility]) ([facility]) 03/06/2025 Refill [facility] [address] [place] [address] [phone] Messi Mccollum MD Uncomplicated opioid dependence ([facility]) ([facility]) 03/04/2025 Results Follow-Up [facility] [address] [place] [address] [id number] Helen Arnold NP XR Ankle 3+ Views Left 03/02/2025 1:20 PM EDT Office Visit [facility] [address] [place] [address] [phone] Helen Arnold NP Left ankle swelling (Primary Dx); Elevated blood pressure reading; Swelling of both lower extremities; Rectal pain, chronic 03/02/2025 Travel 02/27/2025 Telephone [facility] [address] [place] [address] [phone] Melissa Jefferson MD Nurse Triage 02/27/2025 Telephone [facility] [address] [place] [address] [phone] Melissa Jefferson MD Nurse Triage 02/25/2025 Patient Outreach [facility] [address] [place] [address] Melissa Jefferson MD Transition Of Care (Tcm) (HDF unscheduled. ) 02/15/2025 Refill [facility] [address] [place] [address] Sammy Reilly MD Hypertension secondary to other renal disorders 02/13/2025 1:45 PM EDT Office Visit [address] [phone] Melissa Jefferson MD Acute respiratory failure, unspecified whether with hypoxia or hypercapnia (CMS/HCC) (Primary Dx); Dietary counseling; Exercise counseling; Chronic obstructive pulmonary disease, unspecified COPD type (CMS/HCC) 02/13/2025 Orders Only [facility] External Provider, [facility] 02/13/2025 Telephone [facility] [address] [place] [address] [phone] Melissa Jefferson MD Ambulance transport 02/13/2025 Travel 02/11/2025 Telephone [facility] [address] [place] [phone] Melissa Jefferson MD chart prep 02/05/2025 Patient Outreach [address] [phone] Melissa Jefferson MD Pre-visit Planning (SDOH screening completed on 07/15/2024) 01/15/2025 Refill [facility] [address] [place] [phone] Melissa Jefferson MD 01/01/2025 Refill [facility] [address] [place] [address] Melissa Jefferson MD Nausea 12/19/2024 1:00 PM EDT Clinical Support [address] [address] Jessica Rahman, CELIO Uncomplicated opioid dependence (CMS/HCC) 12/19/2024 Travel 12/18/2024 Refill [facility] [address] [place] [address] Melissa Jefferson MD Nausea 12/18/2024 Refill [facility] [address] [place] [address] Sammy Reilly MD 12/12/2024 Refill [facility] [address] [place] [address] Jessica Rahman, CELIO Uncomplicated opioid dependence ([facility]/HCC) 12/12/2024 Refill [facility] [address] [place] [address] Jessica Rahman RN 12/11/2024 Refill [facility] [address] [place] [address] Nolberto Cates MD Uncomplicated opioid dependence ([facility]) from Last 3 Months Immunizations Immunization Administration [...] Description 03/13/2025 10:00 AM EDT Office Visit [facility] [address] [place] [address] [phone] Messi Mccollum MD [address] [place] [address] 03/18/2025 9:45 AM EDT Office Visit [address] [phone] Marybeth Campa NP [address] [place] [address] 04/28/2025 11:30 AM EST Office Visit [address] [phone] Melissa Jefferson MD [address] [place] [address] 06/05/2025 10:00 AM EST Office Visit [address] [phone] Messi Mccollum MD [address] [place] [address] 06/26/2025 2:00 PM EST Office Visit [facility] [address] [place] [phone] MikeJaja hunt, OD [address] [place] [address] Health Maintenance Due Date Last Done Comments [...] Oral Exam 09/29/2023 03/30/2023 Mammogram 11/06/2024 11/07/2023, 11/2018, 01/30/2018 COVID-19 Vaccine ( season) 2025 05/10/2023, 03/03/2022, 05/17/2021, Additional history exists Depression Monitoring 03/05/2025 09/03/2024, 025 Diabetes: Hemoglobin A1C 03/05/2025 025, 03/11/2024, 10/18/2023, Additional history exists Alcohol/Substance Use Screening 03/11/2025 03/11/2024 SDOH Screening 07/15/2025 07/15/2024 Tobacco Screening 03/02/2026 03/02/2025 Dental X-Ray: Full Mouth 03/31/2026 03/30/2023 HPV/Cotest [...] Name Priority Date/Time Associated Diagnosis Comments XR ANKLE 3+ VIEWS LEFT Routine 1:50 PM EDT Left ankle swelling XR KUB AND UPRIGHT 2 VIEWS Routine 02/18/2025 11:10 AM EDT XR CHEST 1 VIEW Routine 02/17/2025 1:22 PM EDT POCT GLYCATED HEMOGLOBIN, TOTAL Routine 09/03/2024 2:47 PM EDT Type 2 diabetes mellitus with chronic kidney disease on chronic dialysis, with long-term current use of insulin ([facility]) THINPREP IMAGING PAP AND HPV MRNA [...] Relevant to Health Maintenance Results * XR Ankle 3+ Views Left (03/02/2025 1:50 PM EDT) Anatomical Region Laterality Modality Lower Extremities, Ankle Left Radiogr aphic Imaging 03/02/2025 1:50 PM EDT Narrative 03/03/2025 7:16 AM EDT [facility] [address] [place] [address] XRay Report Signed Patient: Cruz Muller MR#: [id number] 460 : 1955 Acct:[id number] Age/Sex: 69 / F ADM Date: 03/02/25 Loc: .[facility] Attending Dr: Helen Arnold Ordering Physician: Helen Arnold Date of Service: 03/02/25 Procedure(s): XR ankle LT min 3V Accession Number(s): [id number] cc: Helen Arnold Reason for Exam: fall EXAMINATION: XR ANKLE, LEFT CLINICAL INFORMATION: fall COMPARISON: None available. TECHNIQUE: AP, lateral, and mortise views of the left ankle. FINDINGS: The ankle mortise and subtalar joints are normal. There is no visible acute fracture, dislocation or subluxation. Loss of intertarsal and tarsometatarsal joint space with subchondral cysts and mild increased sclerosis in the tarsal joints likely degenerative arthritic changes. There is a small calcaneal heel spur. XR/XR ankle LT min 3V IMPRESSION: No acute fracture or dislocation. Mild degenerative changes in mid foot Electronically signed by: Orlando Dozier MD 03/03/2025 07:13 AM EDT Dictated By: Orlando Dozier MD Signed By: <Electronically signed by Orlando Dozier MD in OV> 03/03/25 0713 DD/ 1350 TD/TT: 03/02/25 1358 Marketing Production Coordinator: [facility] Procedure Note Donotuseinterpreter, Image - 03/03/2025 [facility] [address] [place] [address] XRay Report Signed Patient: Cruz MullerMR#: [id number] 460 : 1955cct:[id number] Age/Sex: 69 / FADM Date: 03/02/25 [facility] Dr: Helen Arnold Ordering Physician: Helen Arnold Date of Service: 03/02/25 Procedure(s): XR ankle LT min 3V Accession Number(s): [id number] cc: Helen Arnold Reason for Exam: fall EXAMINATION: XR ANKLE, LEFT CLINICAL INFORMATION: fall COMPARISON: None available. TECHNIQUE: AP, lateral, and mortise views of the left ankle. FINDINGS: The ankle mortise and subtalar joints are normal. There is no visible acute fracture, dislocation or subluxation. Loss of intertarsal and tarsometatarsal joint space with subchondral cysts and mild increased sclerosis in the tarsal joints likely degenerative arthritic changes. There is a small calcaneal heel spur. XR/XR ankle LT min 3V IMPRESSION: No acute fracture or dislocation. Mild degenerative changes in mid foot Electronically signed by: Orlando Dozier MD 03/03/2025 07:13 AM EDT Dictated By: Orlando Dozier MD Signed By: <Electronically signed by Orlando Dozier MD in OV> 03/03/25 0713 DD/ 1350 TD/TT: 03/02/25 1358 Marketing Production Coordinator: [facility] Helen Arnold DIRECTOR CHEMISTRY IMG XR PROCEDURES Final Result * XR KUB and Upright 2 Views (02/18/2025 11:10 AM EDT) Anatomical Region Laterality Modality Radiographic Bety ging 02/18/2025 11:1 0 AM EDT Narrative 02/18/2025 11:53 AM EDT [address] [address] XRay Report Signed Patient: Cruz Muller MR#: [id number] 460 : 1955 Acct:[id number] Age/Sex: 69 / F ADM Date: 02/13/25 [address]: [facility] 482-[address]: Davis Huggins MD Ordering Physician: Davis Huggins MD Date of Service: 02/18/25 Procedure(s): XR KUB Accession Number(s): [id number] cc: Melissa Jefferson; Davis Huggins MD Reason [...] 02/18/25 1150 DD/ 1110 TD/TT: 02/18/25 1140 Marketing Production Coordinator: Procedure Note Donotuseinterpreter, Image - 02/18/2025 [place] [address] XRay Report Signed Patient: Cruz MullerMR#: [id number] 460 : 1955cct:[id number] Age/Sex: 69 / FADM Date: 02/13/25 Loc: [facility] 482-[address]: Davis Huggins MD Ordering Physician: Davis Huggins MD Date of Service: 02/18/25 Procedure(s): XR KUB Accession Number(s): [id number] cc: Melissa Jefferson; Davis Huggins MD Reason [...] 02/18/25 1150 DD/ 1110 TD/TT: 02/18/25 1140 Marketing Production Coordinator: [facility] External Provider IMG XR PROCEDURES Final Result * XR Chest 1 View (02/17/2025 1:22 PM EDT) Anatomical Region Laterality Modality Chest Radiographic Bety ging 02/17/2025 1:22 PM EDT Narrative 02/17/2025 2:20 PM EDT [place] [address] XRay Report Signed Patient: Cruz Muller MR#: [id number] 460 : 1955 Acct:[id number] Age/Sex: 69 / F ADM Date: 02/13/25 Loc: [facility] 482-[address]: Davis Huggins MD Ordering Physician: Davis Huggins MD Date of Service: 02/17/25 Procedure(s): XR chest 1V Accession Number(s): [id number] cc: Melissa Jefferson; Davis Huggins MD Reason [...] Rajendra Quinn MD 02/17/2025 02:17 PM EDT Dictated By: Rajendra Quinn MD Signed By: <Electronically signed by Rajendra Quinn MD in OV> 02/17/25 1417 DD/ 1322 TD/TT: 02/17/25 1406 Marketing Production Coordinator: Procedure Note Donotuseinterpreter, Image - 02/17/[address] [address] XRay Report Signed Patient: Cruz MullerMR#: [id number] 460 : 1955cct:[id number] Age/Sex: 69 / FADM Date: 02/13/25 Loc: [facility] 482-[address]: Davis Huggins MD Ordering Physician: Davis Huggins MD Date of Service: 02/17/25 Procedure(s): XR chest 1V Accession Number(s): [id number] cc: Melissa Jefferson; Davis Huggins MD Reason [...] 02/17/25 1417 DD/ 1322 TD/TT: 02/17/25 1406 Marketing Production Coordinator: [facility] External Provider IMG XR PROCEDURES Final Result * POCT HGB A1C (09/03/2024 2:47 PM EDT) Pathologist [facility] Hemoglobin A1C 5.8 4.0 - 6.0 % QC Media Lot # [id number] Lot# Expiration Date [id number] Blood 09/03/2024 2:47 PM EDT Margarita Rob ANP POINT OF CARE TEST ENTER/EDIT OR DERABLES Final Result * ThinPrep Imaging Pap and HPV mRNA E6/E7 (12/05/2023 9:53 AM EDT) Pathologist [facility] HPV nRNA E6/E7 Not Detected Not Detected [facility] Comment:Methodology: Transcr iption-Mediated AmplificationThis assay detects E6/E7 viral messenger RNA (mRNA) from 14high-risk HPV types (16,18,31,33,35,39,45,51,52,56,58,59,66,68).Cervical sources are required for HPV testing.If a vaginal source from a patient who has had atotal hysterectomy with removal of cervix wassubmitted, please contact the testing laboratoryfor alternative testing options.For additional information, please refer tohttp://education.[employer]/faq/ALE450f2(This link if provided for information/educational purposes only.)THIS TEST WAS PERFORMED AT:[facility] [place] [id number] JUNE MD SOURCE: SEE NOTE [facility] Comment:None given Report Status: TNP [facility] Clinical Information: SEE NOTE [facility] Comment:None given LMP: SEE NOTE [facility] Comment:NONE GIVEN Prev. PAP: SEE NOTE [facility] Comment:NONE GIVEN Prev. BX: SEE NOTE [facility] Comment:NONE GIVEN Statement Of Adequacy: SEE NOTE [facility] Comment:Satisfactory for amandeep luation.Endocervical/transformation zone component absent. General Categorization: [facility] Interpretation/Result: SEE NOTE [facility] Comment:Cytology Results: Ne gative for intraepitheliallesion or malignancy. Cytology Comment SEE NOTE [facility] Comment:This Pap test has be en evaluated with computerassisted technology. Instructor Modeling: SEE NOTE [facility] Comment:DMM, CT(ASCP)CT scre ening location: [place] [address] Review Instructor Modeling: [facility] Pathologist [facility] PAP Infection [facility] See Note SEE NOTE [facility] Comment:EXPLANATORY NOTE:The Pap is a screening test for cervical cancer. It isnot a diagnostic test and is subject to false negativeand false positive results. It is most reliable when asatisfactory sample, regularly obtained, is submittedwith relevant clinical findings and history, and whenthe Pap result is evaluated along with historic andcurrent clinical information. 12/05/2023 9:53 AM EDT 12/05/2023 4:42 PM EDT Narrative [facility] - 12/12/2023 5:23 PM EDT SEE SCANNED RESULTS IN EMR Geena Umana CNM LAB PATHOLOGY ORDERABLES Final Result [facility] [address] [place] [address] [phone] * BI Mammogram Screening Tomosynthesis Bilateral (11/07/2023 2:55 PM EDT) Anatomical Region Laterality Modality Breast Bilateral Mammography 11/07/2023 2:55 PM EDT Narrative 12/05/2023 11:54 AM EDT [facility] [address] [place] [address] [place] [address] Mammography Report Signed Patient: Cruz Muller MR#: [id number] : 1955 Acct:[id number] Age/Sex: 68 / F ADM Date: 11/07/23 Loc: HO.MAMMO Attending Dr: Sammy Vicente MD Ordering Physician: Sammy Vicente MD Resu lts: 1Negative Date of Service: 11/07/23 Follow Up: 1 Year From Orig inal Mammogram Procedure(s): MM tomosynthesis screening BI Accession Number(s): [id number] cc: Sammy Vicente MD EXAMINATION: MM SCREENING [...] in OV> 12/05/23 1150 DD/ 1455 TD/TT: Marketing Production Coordinator: Procedure Note Donotuseinterpreter, Image - 12/05/2023 [facility] [address] [place] [address] Mammography Report Signed Patient: Cruz Muller MMR#: [id number] : 6Acct:[id number] Age/Sex: 68 / FADM Date: 11/07/23 Loc: HO.MAMMO Attending Dr: Sammy Vicente MD Ordering Physician: Sammy Vicente MDResu lts: 1Negative Date of Service: 11/07/23Follow Up: 1 Year From Orig inal Mammogram Procedure(s): MM tomosynthesis screening BI Accession Number(s): [id number] cc: Sammy Vicente MD EXAMINATION: MM SCREENING [...] in OV> 12/05/23 1150 DD/ 1455 TD/TT: Marketing Production Coordinator: Sammy Whitehead MD IMG BI PROCEDURES Fin [...] LDL-C. Chaitanya SS et al. CARLOS. 2013;310(19): 3130-2502 (http://[email or web address] Communications/faq/[email or web address]) Non-HDL Cholesterol 175(H) <130 mg/dL (calc) FOUNDATION [...] MD LAB BLOOD ORDERABLES Final Result [facility] [address] from Last 3 Months or Most Recently Relevant to Health Maintenance Insurance [facility] JAIL OPTIONS (O D-SNP) [facility] Care Teams Gm Video Relationship Specialty Start Date End Date Melissa Jefferson MD [address] [place] [address] PCP - General Family Medicine 12/04/24 [employer] 04/08/22 Tj Larose MD Processing Technician Nephrology 04/10/24
--- OUTSIDE RECORDS SUMMARY | 2025-03-11 20:12 | XMS_ITS | Encounter Summary ---
Author Organization [employer] Address [address] 7t [place] [address] Care Team Providers Care Global Position System Technician Name Role Phone Sammy Reilly MD Primary Care Provide r Melissa Jefferson MD Primary Care Provider [phone] Reason for Visit * Reason Comments Med Refill Encounter Details Date Type Department Care Team ([facility] st Contact Info) Description 04/20/2023 Refill [facility] MEDICINE [address] [place] [address] Name, MD Tye [address] [place], [place] [phone] Hypertension secondary to other renal disorders Social [...] Office Visit [facility] MEDICINE [address] [place] [address] Messi Mccollum MD [address] [place] [address] 03/18/2025 9:45 AM EDT Office Visit [facility] [address] [place] [address] Marybeth Campa NP [address] [place] [address] 04/28/2025 11:30 AM EST Office Visit [address] [address] Melissa Jefferson MD [address] [place] [address] 06/05/2025 10:00 AM EST Office Visit [facility] MEDICINE [address] [place] [address] Messi Mccollum MD [address] [place] [address] 06/26/2025 2:00 PM EST Office Visit [facility] OPTOMETRY [address] [place] [address] Jaja Mckeon, OD [address] [place] [address] documented as of this encounter Goals Goal [...] documented as of this encounter Care Teams Global Position System Technician Relationship Specialty Start Date End Date Sammy Reilly MD [address] [place] [address] PCP - General Internal Medicine 12/23/13 12/03/24 Melissa Jefferson MD 230 [place] [address] PCP - General Family Medicine 12/04/24 [employer] 04/08/22 Tj Larose MD Commercial Account Executive Nephrology 04/10/24 documented as of this encounter
--- OUTSIDE RECORDS SUMMARY | 2025-03-11 20:12 | XMS_ITS | Encounter Summary ---
Author Organization [employer] Address [address] [facility] 7t [place] [address] Care Team Providers Care National Opelint Analyst Name Role Phone Sammy Reilly MD Primary Care Provide r Melissa Jefferson MD Primary Care Provider [phone] Reason for Visit * Reason Onset Date Comments Appointment Request 05/24/2023 Encounter Details Date Type Department Care Team ([facility] st Contact Info) Description 05/24/2023 Telephone [facility] MEDICINE [address] [place], [place] [phone] Sammy Reilly MD 230 [place] [address] Appointment Request Social History Tobacco Use Types [...] 11:25 AM EST Tc from patients care consultant calling to request a follow appt with the patients PCP there is no concerns as of right now documented in this encounter Plan of Treatment Upcoming Encounters Date Type Department Care Team (Late st Contact Info) Description 03/13/2025 10:00 AM EDT Office Visit [address] [address] Messi Mccollum MD [address] [place] [address] 03/18/2025 9:45 AM EDT Office Visit [address] [address] Marybeth Campa NP [address] [place] [address] 04/28/2025 11:30 AM EST Office Visit [address] [address] Melissa Jefferson MD [address] [place] [address] 06/05/2025 10:00 AM EST Office Visit [facility] MEDICINE [address] [place] [address] Messi Mccollum MD [address] [place] [address] 06/26/2025 2:00 PM EST Office Visit [facility] OPTOMETRY [address] [place] [address] Jaja Mckeon, OD 230 [place] [address] documented as of this encounter Goals Goal [...] documented as of this encounter Care Teams National Opelint Analyst Relationship Specialty Start Date End Date Sammy Reilly MD [address] [place] [address] PCP - General Internal Medicine 12/23/13 12/03/24 Melissa Jefferson MD [address] [place] [address] PCP - General Family Medicine 12/04/24 [employer] 04/08/22 Tj Larose MD Solar Hot Water Installer Nephrology 04/10/24 documented as of this encounter
--- OUTSIDE RECORDS SUMMARY | 2025-03-11 20:12 | XMS_ITS | Encounter Summary ---
Author Organization [employer] Address [address] [facility] 7t [place] [address] Care Team Providers Care Certified Dental Assistant Name Role Phone Sammy Reilly MD Primary Care Provide r Melissa Jefferson MD Primary Care Provider [phone] Reason for Visit * Reason Comments Med Refill Encounter Details Date Type Department Care Team (Late st Contact Info) Description 10/21/2023 Refill [facility] MEDICINE 230 [place], [place] [phone] Sammy Reilly MD [address] [place], [place] [phone] Chronic obstructive pulmonary disease, unspecified COPD type [...] Description 03/13/2025 10:00 AM EDT Office Visit [address] [address] Messi Mccollum MD [address] [place] [address] 03/18/2025 9:45 AM EDT Office Visit [address] [address] Marybeth Campa NP [address] [place] [address] 04/28/2025 11:30 AM EST Office Visit [address] [address] Melissa Jefferson MD [address] [place] [address] 06/05/2025 10:00 AM EST Office Visit [address] [address] Messi Mccollum MD [address] [place] [address], [place] [address] 06/26/2025 2:00 PM EST Office Visit [facility] OPTOMETRY [address] [place] [address] Jaja Mckeon, OD 230 [place] [address] documented as of this encounter Goals Goal [...] as of this encounter Care Teams Certified Dental Assistant Relationship Specialty Start Date End Date Sammy Reilly MD [address] [place] [address] PCP - General Internal Medicine 12/23/13 12/03/24 Melissa Jefferson MD [address] [place] [address] PCP - General Family Medicine 12/04/24 [employer] 04/08/22 Tj Larose MD Gear Tooth Lapping Machine Operator Nephrology 04/10/24 documented as of this encounter
--- OUTSIDE RECORDS SUMMARY | 2025-03-11 20:12 | XMS_ITS | Encounter Summary ---
Author Organization [employer] Address [address] [facility] 7t [place] [address] Care Team Providers Care Advanced Manufacturing Associate Name Role Phone Sammy Reilly MD Primary Care Provide r Melissa Jefferson MD Primary Care Provider [phone] Reason for Visit * Reason Comments Med Refill Encounter Details Date Type Department Care Team ([facility] Contact Info) Description 06/20/2022 Refill [facility] MEDICINE [address] [place] [address] Sammy Reilly MD [address] [place], [place] [phone] Primary hypertension (Primary Dx); Uncomplicated opioid dependence [...] Upcoming Encounters Date Type Department Care Team ([facility] Contact Info) Description 03/13/2025 10:00 AM EDT Office Visit [facility] MEDICINE [address] [place] [address] Messi Mccollum MD [address] [place] [address] 03/18/2025 9:45 AM EDT Office Visit [facility] [address] [place] [address] Marybeth Campa NP [address] [place] [address] 04/28/2025 11:30 AM EST Office Visit [address] [address] Melissa Jefferson MD [address] [place] [address] 06/05/2025 10:00 AM EST Office Visit [address] [address] Messi Mccollum MD [address] [place] [address] 06/26/2025 2:00 PM EST Office Visit [facility] OPTOMETRY [address] [place] [address] Jaja Mckeon, OD [address] [place] [address] documented as of this encounter Visit Diagnoses Diagnosis Primary hypertension- Primary Unspecified essential hypertension Uncomplicated opioid dependence (CMS/HCC) (HCC) Opioid dependence on maintenance agonist therapy, no symptoms (CMS/HCC) (HCC)- Primary documented in this encounter Care Teams Advanced Manufacturing Associate Relationship Specialty Start Date End Date Sammy Reilly MD [address] [place] [address] PCP - General Internal Medicine 12/23/13 12/03/24 Melissa Jefferson MD [address] [place] [address] PCP - General Family Medicine 12/04/24 [employer] 04/08/22 Tj Larose MD Associate Director Finance Nephrology 04/10/24 documented as of this encounter
--- OUTSIDE RECORDS SUMMARY | 2025-03-11 20:13 | XMS_ITS | Encounter Summary ---
Author Organization [employer] Address [address] [facility] [address] [facility] [address] 7t [place] [address] Care Team Providers Care Nurse Obgyn Name Role Phone Sammy Reilly MD Primary Care Provide r Melissa Jefferson MD Primary Care Provider [phone] Reason for Visit * Reason Comments Med Refill Encounter Details Date Type Department Care Team ([facility] st Contact Info) Description 07/31/2024 Refill [facility] MEDICINE [address] [place] [address] Geena Umana CN [address] [place], [place] [phone] Social History Tobacco Use Types Packs/Day Years [...] Description 03/13/2025 10:00 AM EDT Office Visit [address] [address] Messi Mccollum MD [address] [place] [address] 03/18/2025 9:45 AM EDT Office Visit [address] [address] Marybeth Campa NP [address] [place] [address] 04/28/2025 11:30 AM EST Office Visit [address] [address] Melissa Jefferson MD [address] [place] [address] 06/05/2025 10:00 AM EST Office Visit [facility] MEDICINE [address] [place] [address] Messi Mccollum MD 230 [place] [address] 06/26/2025 2:00 PM EST Office Visit [facility] OPTOMETRY [address] [place] [address] Mike, Jaja, OD 230 [place] [address] documented as of this encounter Goals Goal [...] documented as of this encounter Care Teams Nurse Obgyn Relationship Specialty Start Date End Date Sammy Reilly MD [address] [place] [address] PCP - General Internal Medicine 12/23/13 12/03/24 Melissa Jefferson MD [address] [place] [address] PCP - General Family Medicine 12/04/24 [employer] 04/08/22 Tj Larose MD Bilingual Speech Language Pathologist Nephrology 04/10/24 documented as of this encounter
--- OUTSIDE RECORDS SUMMARY | 2025-03-11 20:13 | XMS_ITS | Encounter Summary ---
Author Organization [employer] Address [address] [facility] [address] 7t [place] [address] Care Team Providers Care Director Of Curriculum Name Role Phone Sammy Reilly MD Primary Care Provide r Melissa Jefferson MD Primary Care Provider [phone] Reason for Visit * Reason Comments Med Refill Encounter Details Date Type Department Care Team ([facility] st Contact Info) Description 01/16/2024 Refill [facility] MEDICINE 230 [place] [address] Sammy Reilly MD 230 [place], [place] [phone] Primary hypertension Social History Tobacco Use Types [...] Description 03/13/2025 10:00 AM EDT Office Visit [address] [address] Messi Mccollum MD [address] [place] [address] 03/18/2025 9:45 AM EDT Office Visit [address] [address] Marybeth Capma NP [address] [place] [address] 04/28/2025 11:30 AM EST Office Visit [address] [address] Melissa Jefferson MD [address] [place] [address] 06/05/2025 10:00 AM EST Office Visit [address] [address] Messi Mccollum MD [address] [place] [address] 06/26/2025 2:00 PM EST Office Visit [facility] OPTOMETRY [address] [place] [address] Jaja Mckeon, OD 230 [place] [address] documented as of this encounter Goals Goal [...] Diagnoses Diagnosis Primary hypertension Unspecified essential hypertension Opioid dependence on maintenance agonist therapy, no symptoms (CMS/HCC) (HCC)- Primary documented in this encounter Additional Health Concerns Assessment Noted Time PHQ-9 Depression Total Score: 11 024 9:25 AM EDT documented as of this encounter Care Teams Director Of Curriculum Relationship Specialty Start Date End Date Sammy Reilly MD [address] [place] [address] PCP - General Internal Medicine 12/23/13 12/03/24 Melissa Jefferson MD [address] [place] [address] PCP - General Family Medicine 12/04/24 [employer] 04/08/22 Tj Larose MD Stepdown Nurse Nephrology 04/10/24 documented as of this encounter
--- OUTSIDE RECORDS SUMMARY | 2025-03-11 20:13 | XMS_ITS | Clinical Summary ---
Author Organization [facility] Address [address] [place] [phone] Phone Care Team Providers Care Stock Wetter Name Role Phone Sammy Vicente MD Primary Care Provi baldo Allergies No known active allergies Medications albuterol 2.5 mg /3 mL (0.083 %) nebulizer solution INHALE 1 AMPULE USING A NEBULIZER EVERY 6 HOURS NEEDED FOR WHEEZING 5 Active amLODIPine (NORVASC) 10 mg tablet Take 1 tablet (10 mg total) by mouth 1 (one) time each day. 8 Active aspirin 81 mg EC tablet Take 1 tablet (81 mg total) by mouth 1 (one) time each day. Active blood sugar diagnostic (FreeStyle Lite Strips) test strip USE DIRECTED TO TEST BLOOD SUGAR THREE TIMES DAILY 5 Active FreeStyle Mancelona Lite monitoring kit use as directed to test blood sugar 5 Active buprenorphine- naloxone (SUBOXONE) 8-2 mg per SL film DISSOLVE 2 FILMS UNDER THE TONGUE ONCE DAILY Active buPROPion SR (Wellbutrin SR) 150 mg 12 hr tablet po bid 8 Active carvediloL (COREG) 25 mg tablet Take 1 tablet (25 mg total) by mouth 2 (two) times a day. 5 Active cloNIDine (CATAPRES-TTS- 3) 0.3 mg/24 hr APLICAR 1 PARCHO A LA PIEL MARIFER VEZ CADA SEMANA. REMOVER EL PARCHE JAIR ANTES DE APLICAR UN PARCHE NUEVO. 5 Active clotrimazole (LOTRIMIN) 1 % vaginal cream INSTILL VAGINALLY EVERY EVENING FOR 7 DAYS Active glucose 3.75 gram tablet,chewabl e CHEW 4 TABLETS BY MOUTH NEEDED HYPOGLYCEMIA 4 Active diclofenac (VOLTAREN) 1 % topical gel APPLY 2 GRAMS TO AFFECTED AREA(S) TWICE DAILY DIRECTED 5 Active diphenhydrAMIN E (Banophen) 25 mg capsule Take 1 capsule (25 mg total) by mouth 1 (one) time each day if needed. 2 Active docusate sodium (COLACE) 100 mg capsule Take 1 capsule every day by oral route for 7 days. 5 Active famotidine (PEPCID) 20 mg tablet Take 1 tablet (20 mg total) by mouth 2 (two) times a day. Active fluticasone HFA (FLOVENT HFA) 110 mcg/actuation inhaler Inhale 1 puff by mouth 2 (two) times a day. Active gabapentin (NEURONTIN) 300 mg capsule Take 1 capsule (300 mg total) by mouth daily. 2 Active hydrALAZINE (APRESOLINE) 100 mg tablet Take 1 tablet (100 mg total) by mouth 3 (three) times a day with meals. Active insulin aspart (NovoLOG Flexpen U-100 Insulin) 100 unit/mL (3 mL) injection pen INJECT 4-12 UNITS SUBCUTANEOUSLY BEFORE MEALS DIRECTED PER SLIDING SCALE BLOOD SUGAR 150-200 = 4 UNITS, 201-250 = 6U, 251-300 = 8U, 301-350 = 10U, > 351 = 12U Active insulin glargine (Lantus Solostar U-100 Insulin) 100 unit/mL (3 mL) injection pen INJECT 7 UNITS SUBCUTANEOUSLY ONCE DAILY Active lactulose (CHRONULAC) solution GIVE 15 ML BY MOUTH EVERY DAY NEEDED FOR CONSTIPATION 5 Active TRUEplus Lancets 33 gauge misc USE DIRECTED TO TEST BLOOD SUGAR FIVE TIMES DAILY 5 Active magnesium citrate solution DRINK FULL BOTTLE ONCE Active metFORMIN (GLUCOPHAGE) 1,000 mg tablet Take 1 tablet (1,000 mg total) by mouth 2 (two) times a day. Active mirtazapine (REMERON) 15 mg tablet Take 1 tablet (15 mg total) by mouth. 3 Active nicotine (NICODERM CQ) 14 mg/24 hr APPLY 1 PATCH TOPICALLY TO THE SKIN IN THE MORNING DO NOT SMOKE WHILE USING PATCH 5 Active OLANZapine (ZyPREXA) 5 mg tablet Take 1 tablet (5 mg total) by mouth. Active ondansetron (ZOFRAN) 4 mg tablet TAKE 1 TABLET BY MOUTH EVERY TWELVE HOURS NEEDED FOR NAUSEA AND VOMITING 5 Active pantoprazole (PROTONIX) 40 mg EC tablet TAKE 1 TABLET BY MOUTH EVERY MORNING. DO NOT BREAK, CRUSH, DISSOLVE OR CHEW 5 Active psyllium husk, with sugar, (Reguloid, psyllium husk-sucro,) 3 gram/12 gram powder MIX 1 TABLESPOONFUL IN 8 OUNCES OF WATER AND DRINK EVERY DAY Active QUEtiapine (SeroqueL) 100 mg tablet at bed time 8 Active senna 8.6 mg tablet TAKE 2 TABLETS BY MOUTH EVERY DAY FOR 7 DAYS 2 Active sevelamer carbonate (RENVELA) 800 mg tablet TAKE 1 TABLET BY MOUTH TWICE DAILY WITH ONLY 2 MEALS 2 Active Lokelma 10 gram packet DISSOLVE 1 PACKET IN WATER DIRECTED AND TAKE ONCE DAILY ON SUNDAY, SUNDAY AND Sunday 5 Active traZODone (DESYREL) 100 mg tablet Take 1 tablet (100 mg total) by mouth at bedtime as needed. 1 Active tiotropium (Spiriva with HandiHaler) 18 mcg per inhalation capsule USE 1 CAPSULE FOR INHALATION ONCE A DAY DO NOT SWALLOW CAPSULE Active Encounters Date Type Department Care Team Description 03/09/2025 2:00 PM EDT Office Visit Orthopedic Surgery - [address] [address] Candido Hu, DPM Primary osteoarthritis of both feet (Primary Dx); Dermatophytosis of nail; Acquired hammer toe of right foot; Hammer toe of left foot; Pain in toe of right foot; Pain in toe of left foot; Metatarsalgia of both feet; Tinea pedis of both feet; Type II diabetes mellitus with peripheral circulatory disorder ([facility] V24, [facility] V28); Diabetic mononeuropathy simplex ([facility] V24, [facility] V28); Corns and callosities from Last 3 Months Social History Tobacco [...] PM EST Office Visit Orthopedic Surgery - [place] [address] [address] Candido Hu, DPM [address] [address] Health Maintenance Due Date Last Done [...] 2025 05/10/2023, 03/03/2022, 05/17/2021, Additional history exists Diabetes: Blood Sugar Control [...] patient's age to complete this topic Insurance [facility] MEDICARE Member Subscriber Plan / Payer (Ef fective 2021-Present) Name:Cruz Muller Relation to Subscriber:Self Name:Cruz Muller Payer ID:[id number] Group ID:[id number] Type:Not on file Address: [address] [address] Care Teams Stock Wetter Relationship Specialty Start Date End Date Sammy Vicente MD [address] [place] [address] PCP - General Internal Medicine 08/01/24
--- OUTSIDE RECORDS SUMMARY | 2025-03-11 20:13 | XMS_ITS | Encounter Summary ---
Author Organization [employer] Address [address] [facility] [address] 7t [place] [address] Care Team Providers Care Grinding Machine Operator Name Role Phone Sammy Reilly MD Primary Care Provide r Melissa Jefferson MD Primary Care Provider [phone] Reason for Visit * Reason Onset Date Comments Appointment Request 07/08/2024 Encounter Details Date Type Department Care Team ([facility] Contact Info) Description 07/08/2024 Telephone [facility] MEDICINE [address] [place] [address] Sammy Reilly MD [address] [place], [place] [phone] Appointment Request Social History Tobacco Use Types [...] 07/08/2024 3:58 PM EST Tc from pt ROAD INSPECTOR stating that pt is requesting apt with PCP due to not being seen in a while and she wants to get checked up. Pt wants to give info to PCP or nurse. Contact pt ROAD INSPECTOR at [phone] documented in this encounter Plan of Treatment Upcoming Encounters Date Type Department Care Team (Late st Contact Info) Description 03/13/2025 10:00 AM EDT Office Visit [facility] MEDICINE [address] [place] [address] [phone] Messi Mccollum MD [address] [place] [address] 03/18/2025 9:45 AM EDT Office Visit [facility] MEDICINE [address] [place] [address] [phone] Marybeth Campa, JOHN [address] [place] [address] 04/28/2025 11:30 AM EST Office Visit [facility] MEDICINE [address] [place] [address] Melissa Jefferson MD [address] [place] [address] 06/05/2025 10:00 AM EST Office Visit [facility] MEDICINE [address] [place] [address] Messi Mccollum MD [address] [place] [address] 06/26/2025 2:00 PM EST Office Visit [facility] OPTOMETRY [address] [place] [address] Jaja Mckeon, OD [address] [place] [address] documented as of this encounter Goals Goal [...] documented as of this encounter Care Teams Grinding Machine Operator Relationship Specialty Start Date End Date Sammy Reilly MD [address] [place] [address] PCP - General Internal Medicine 12/23/13 12/03/24 Melissa Jefferson MD [address] [place] [address] PCP - General Family Medicine 12/04/24 [employer] 04/08/22 Tj Larose MD Consumer Banker Nephrology 04/10/24 documented as of this encounter
--- OUTSIDE RECORDS SUMMARY | 2025-03-11 20:13 | XMS_ITS | Encounter Summary ---
Author Organization [employer] Address [address] 7t [place] [address] Care Team Providers Care Escrow Manager Name Role Phone Sammy Reilly MD Primary Care Provide r Melissa Jefferson MD Primary Care Provider [phone] Encounter Details Date Type Department Care Team (Late st Contact Info) Description 07/28/2024 Orders Only [facility] [address] [place] [address] Provider, MD Willow Social History Tobacco Use [...] 03/13/2025 10:00 AM EDT Office Visit [address] [address] Messi Mccollum MD [address] [place] [address] 03/18/2025 9:45 AM EDT Office Visit [address] [address] Marybeth Campa NP [address] [place] [address] 04/28/2025 11:30 AM EST Office Visit [address] [address] Melissa Jefferson MD [address] [place] [address] 06/05/2025 10:00 AM EST Office Visit [address] [phone] Messi Mccollum MD [address] [place], [place] [phone] 06/26/2025 2:00 PM EST Office Visit [facility] [address] [place] [address] Jaja Mckeon, OD 230 [place] [address] documented as of this encounter Goals Goal [...] EST documented in this encounter Results * Colonoscopy (05/25/2022 1:47 PM EST) Historical Provider HEALTH MAINTENANCE Final Result documented in this encounter Visit Diagnoses Not on filedocumented in this encounter Additional Health Concerns Assessment Noted Time PHQ-9 Depression Total Score: 11 024 9:25 AM EDT documented as of this encounter Care Teams Escrow Manager Relationship Specialty Start Date End Date Sammy Reilly MD [address] [place] [address] PCP - General Internal Medicine 12/23/13 12/03/24 Melissa Jefferson MD [address] [place], [place] [phone] PCP - General Family Medicine 12/04/24 [employer] 04/08/22 Tj Larose MD Staffing Analyst Nephrology 04/10/24 documented as of this encounter
--- OUTSIDE RECORDS SUMMARY | 2025-03-11 20:13 | XMS_ITS | Encounter Summary ---
Author Organization [employer] Address [address] [facility] 7t [place] [address] Care Team Providers Care Playground Supervisor Name Role Phone Melissa Jefferson MD Primary Care Provider [phone] Reason for Visit * Reason Comments Med Refill Encounter Details Date Type Department Care Team (Late st Contact Info) Description 12/11/2024 Refill [facility] [address] [place] [address] Nolberto Cates MD [address] [place] [address] Uncomplicated opioid dependence (CMS/HCC) Social History Tobacco [...] 03/13/2025 10:00 AM EDT Office Visit [facility] [address] [place] [address] Messi Mccollum MD [address] [place] [address] 03/18/2025 9:45 AM EDT Office Visit [facility] [address] [place] [address] Marybeth Campa NP [address] [place] [address] 04/28/2025 11:30 AM EST Office Visit [address] [address] Melissa Jefferson MD [address] [place] [address] 06/05/2025 10:00 AM EST Office Visit [facility] 230 [place] [address] Messi Mccollum MD 230 [place] [address] 06/26/2025 2:00 PM EST Office Visit [facility] [address] [place], [place] [phone] Mike, Jaja, OD 230 [place] [address] documented as of this encounter Goals Goal [...] as of this encounter Care Teams Playground Supervisor Relationship Specialty Start Date End Date Melissa Jefferson MD [address] [place], [place] [phone] PCP - General Family Medicine 12/04/24 [employer] 04/08/22 Tj Larose MD Fur Floor Worker Nephrology 04/10/24 documented as of this encounter
--- OUTSIDE RECORDS SUMMARY | 2025-03-11 20:13 | XMS_ITS | Encounter Summary ---
Author Organization [employer] Address [address] 7[address] [place] [address] Care Team Providers Care Blow Pit Helper Name Role Phone Sammy Reilly MD Primary Care Provide r Melissa Jefferson MD Primary Care Provider Encounter Details Date Type Department Care Team (Late st Contact Info) Description 06/26/2024 Telephone [facility] [address] [place] [address] Sammy Reilly MD 230 [place] [address] Social History Tobacco Use Types Packs/Day Years [...] Description 03/13/2025 10:00 AM EDT Office Visit [address] [address] Messi Mccollum MD [address] [place] [address] 03/18/2025 9:45 AM EDT Office Visit [address] [address] Marybeth Campa NP [address] [place] [address] 04/28/2025 11:30 AM EST Office Visit [address] [phone] Melissa Jefferson MD [address] [place] [address] 06/05/2025 10:00 AM EST Office Visit [address] [place] [address] Messi Mccollum MD 230 [place] [address] 06/26/2025 2:00 PM EST Office Visit [facility] [address] [place] [address] Mike, Jaja, OD 230 [place] [address] documented as of this encounter Goals Goal [...] documented as of this encounter Care Teams Blow Pit Helper Relationship Specialty Start Date End Date Sammy Reilly MD 230 [place] [address] PCP - General Internal Medicine 12/23/13 12/03/24 Melissa Jefferson MD 230 [place], [place] [phone] PCP - General Family Medicine 12/04/24 [employer] 04/08/22 Tj Larose MD Construction Grip Nephrology 04/10/24 documented as of this encounter
--- OUTSIDE RECORDS SUMMARY | 2025-03-11 20:13 | XMS_ITS | Encounter Summary ---
Author Organization [employer] Address [address] [facility] [place] [address] 7t [place] [address] Care Team Providers Care Human Resource Management Instructor Name Role Phone Sammy Reilly MD Primary Care Provide r Melissa Jefferson MD Primary Care Provider [phone] Reason for Visit * Reason Onset Date Comments PA 06/10/2024 Encounter Details Date Type Department Care Team ([facility] st Contact Info) Description 06/10/2024 Telephone [facility] [address] [place], [place] [phone] Sammy Reilly MD 230 [place], [place] [phone] [place] Social History Tobacco Use Types Packs/Day [...] Description 03/13/2025 10:00 AM EDT Office Visit [facility] [address] [place] [address] Messi Mccollum MD [address] [place] [address] 03/18/2025 9:45 AM EDT Office Visit [facility] [address] [place] [address] Marybeth Campa NP 230 [place] [address] 04/28/2025 11:30 AM EST Office Visit [facility] [address] [place] [address] Melissa Jefferson MD [address] [place] [address] 06/05/2025 10:00 AM EST Office Visit [facility] [address] [place] [address] Messi Mccollum MD [address] [place] [address] 06/26/2025 2:00 PM EST Office Visit [facility] [address] [place] [address] MikeLuis M huntn, OD 230 [place] [address] documented as of this encounter Goals Goal [...] documented as of this encounter Care Teams Human Resource Management Instructor Relationship Specialty Start Date End Date Sammy Reilly MD [address] [place] [address] PCP - General Internal Medicine 12/23/13 12/03/24 Melissa Jefferson MD [address] [place] [address] PCP - General Family Medicine 12/04/24 [employer] 04/08/22 Tj Larose MD Welding Machine Operator [employer] Nephrology 04/10/24 documented as of this encounter
--- OUTSIDE RECORDS SUMMARY | 2025-03-11 20:13 | XMS_ITS | Encounter Summary ---
Author Organization [employer] Address [address] [facility] 7t [place] [address] Care Team Providers Care General Maintenance Mechanic Name Role Phone Melissa Jefferson MD Primary Care Provider [phone] Reason for Visit * Reason Comments Med Refill Encounter Details Date Type Department Care Team (Late st Contact Info) Description 12/18/2024 Refill [facility] 230 [place] [address] Sammy Reilly MD 230 [place], [place] [phone] Social History Tobacco Use Types Packs/Day Years [...] Description 03/13/2025 10:00 AM EDT Office Visit [facility] [address] [place] [address] Messi Mccollum MD [address] [address] 03/18/2025 9:45 AM EDT Office Visit [facility] [address] [place] [address] Marybeth Campa NP [address] [place] [address] 04/28/2025 11:30 AM EST Office Visit [address] [address] Melissa Jefferson MD [address] [address] 06/05/2025 10:00 AM EST Office Visit [facility] [address] [place] [address] Messi Mccollum MD [address] [place] [address] 06/26/2025 2:00 PM EST Office Visit [facility] [address] [place] [address] MikeJaja hunt, OD 230 [place] [address] documented as of this encounter Goals Goal [...] as of this encounter Care Teams General Maintenance Mechanic Relationship Specialty Start Date End Date Melissa Jefferson MD 230 [place] [address] PCP - General Family Medicine 12/04/24 [facility] The [facility] 04/08/22 Tj Larose MD Argon Tester Nephrology 04/10/24 documented as of this encounter
--- OUTSIDE RECORDS SUMMARY | 2025-03-11 20:13 | XMS_ITS | Encounter Summary ---
Author Organization [facility] Address [address] [place] [address] Care Team Providers Care Clinic Cma Name Role Phone Sammy Strickland MD Primary Care Provider [phone] Encounter Details Date Type Department Care Team [...] 2:30 PM EST Ton Cohn RN * AUDIT-C Score Answer Date of Assessment Author 0 [...] on filedocumented in this encounter Care Teams Clinic Cma Relationship Specialty Start Date End Date Sammy Strickland MD [address] [place] [address] [place] [address] PCP - General 03/27/22 documented as of this encounter
--- OUTSIDE RECORDS SUMMARY | 2025-03-11 20:13 | XMS_ITS | Encounter Summary ---
Author Organization [employer] Address [address] 7[address] [place] [address] Care Team Providers Care Ride Attendant Name Role Phone Sammy Reilly MD Primary Care Provide r Melissa Jefferson MD Primary Care Provider [phone] Reason for Visit * Reason Comments Med Refill Encounter Details Date Type Department Care Team (Late st Contact Info) Description 06/16/2024 Refill [facility] [address] [place] [address] Messi Mccollum MD 230 [place], [place] [phone] Uncomplicated opioid dependence (CMS/HCC) Social History Tobacco [...] 10:00 AM EDT Office Visit [facility] [address] [place] [address] Messi Mccollum MD [address] [place] [address] 03/18/2025 9:45 AM EDT Office Visit [facility] [address] [place] [address] Marybeth Campa NP [address] [place] [address] 04/28/2025 11:30 AM EST Office Visit [address] [address] Melissa Jefferson MD [address] [place] [address] 06/05/2025 10:00 AM EST Office Visit [facility] 230 [place] [address] Messi Mccollum MD 230 [place] [address] 06/26/2025 2:00 PM EST Office Visit [facility] [address] [place] [address] Jaja Mckeon, OD 230 [place] [address] documented as of this encounter Goals Goal [...] documented as of this encounter Care Teams Ride Attendant Relationship Specialty Start Date End Date Sammy Reilly MD [address] [place] [address] PCP - General Internal Medicine 12/23/13 12/03/24 Melissa Jefferson MD [address] [place] [address] PCP - General Family Medicine 12/04/24 [employer] 04/08/22 Tj Larose MD Forming Process Worker Nephrology 04/10/24 documented as of this encounter
== END 2025-03-11 14:33 | disposition home or self-care (01) ==
PROVIDERS: PCP Internal Medicine; Visit Provider Internal Medicine Cardiovascular Disease
DX: I50.32 Chronic diastolic (congestive) heart failure (principal); I10 Essential (primary) hypertension
CPT/HCPCS: 99213

== ENCOUNTER → 2025-03-11 14:02 | Outpatient (BNVA) | payer OTHER, SELFPAY | PROVIDERS: PCP Internal Medicine; Visit Provider Internal Medicine Cardiovascular Disease | DX: I50.32 Chronic diastolic (congestive) heart failure (principal); I10 Essential (primary) hypertension | CPT/HCPCS: 99212 ==